=== PATIENT | female | born 1975 | race Caucasian/White ===

== ENCOUNTER 2017-01-03 08:28 | Inpatient (IN) | payer OTHER ==
[2017-01-03] VITALS (11 sets, daily range): BP systolic 101–138; BP diastolic 60–81; PULSE 66–79; RESP 14–25; TEMP 97.6–98.8; O2SAT 97–100
[~2017-01-03] VITALS: Ht 170.2 cm; Wt 64.4 kg
[~2017-01-03 08:28] MED LIST: CALC500 PO; CLON.5 PO; IBUP800T23 PO; KCL20 PO; KLOR20TA6 PO; MAGN400 PO; PROT40TA PO; SUCR1S PO
[2017-01-03] MEDS ORDERED: SODIUM CHLOR 0.9% 1000 ML INJ 1,000 ML IV SCH (08:35)
[2017-01-03] MEDS ORDERED: ONDANSETRON HCL 4 MG/2 ML VIAL IVP ONE (08:45)
[2017-01-03] MEDS ORDERED: PANTOPRAZOLE SODIUM 40 MG VIAL IVP ONE (08:45)
[2017-01-03] MEDS ORDERED: SODIUM CHLORIDE 0.9% FLUSH 5 ML FLUSH IVF PRN (08:45)
--- NOTE | 2017-01-03 08:45 | PD ---
HPI Chief Complaint: GI Complaint Time Seen by Provider: 08:35 Travel History International Travel<30 days: No Contact w/Intl Traveler<30days: No History of Present Illness HPI 41-year-old female presents with nonbloody emesis and burning abdominal pain over the past couple of days. She states she has prior issues with severe low potassium where she's had a bee in the ICU. She states she was last here in March and went to [facility] in August. She states that she has issues with her insurance so she doesn't really have doctor she can follow with. She states that she has no other concurrent complaints. She feels worse when she moves around. She denies other modifying factors. Quality is nonbloody. Severity is multiple episodes. 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) Cardiovascular Problems: Yes High Cholesterol: No Chemotherapy: No Chest Pain: No Congestive Heart Failure: No COPD: No Cerebrovascular Accident: No Diabetes: No Diminished Hearing: No Endocrine: Yes (HX ENDOMETRIOUSIS) Gastrointestinal Disorders: Yes GERD: Yes Genitourinary: Yes Headaches: Yes Hiatal Hernia: No Hypertension: Yes Immune Disorder: No Kidney Stones: Yes Musculoskeletal: No Neurologic: Yes Psychiatric: No Reproductive: Yes Respiratory: No Immunizations Current: Yes Migraines: Yes Pneumonia: Yes Radiation Therapy: No Renal Failure: No Seizures: No Sickle Cell Disease: No Sleep Apnea: No Thyroid Disease: No Ulcer: Yes (Pt states she has severe ulcers from throat to rectum) PNEUMOCCOCAL Vaccine (Year): 3 : 2 Para: 1 Miscarriage: 1 : 0 Ectopic : Yes (AT 17 YEARS OF AGE) Ovarian Cysts: Yes Past Surgical History Abdominal Surgery: Yes (multiple Laps) AICD: No Appendectomy: Yes Arteriovenous Shunt: No Cardiac Surgery: No Ear Surgery: No Endocrine Surgery: Yes Eye Surgery: No Genitourinary Surgery: Yes (Interstitial cystitis) Gynecologic Surgery: Yes Hysterectomy: Yes (PARTIAL OOPHERECTOMY AND PARTIAL SALPINECTOMY) Insulin Pump: No Joint Replacement: No Oral Surgery: Yes (Removal of abscess) Pacemaker: No Thoracic Surgery: No Other Surgery: Yes (endometriosis, ovarian cyst,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,appendectomy, cervix partial re) Social History Alcohol Use: No Tobacco Use: No Substance Use: Yes (Marijuana, last used couple days ago) Allergies-Medications (Allergen,Severity, Reaction): Coded Allergies: Keflex (Verified Allergy, Severe, RASH,SWELLING, 01/03/17) Penicillin (Verified Allergy, Severe, RASH,SWELLING, 01/03/17) Reglan (Verified Allergy, Severe, DYSTONIC REACTION, 01/03/17) Seafood (Verified Allergy, Severe, SWELLING IN THROAT, SOB, 01/03/17) Toradol (Verified Allergy, Severe, RASH, 01/03/17) Compazine (Verified Allergy, Mild, DYSTONIC REACTION, 01/03/17) Phenergan (Verified Allergy, Mild, DYSTONIC REACTION, 01/03/17) Neurontin (Verified Adverse Reaction, Severe, SEIZURES, 01/03/17) *MDRO Multi-Drug Resistant Organism (Verified Adverse Reaction, Unknown, ) 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 Emesis bag noted SKIN: Warm and dry. HEAD: Normocephalic and atraumatic. EYES: No injection or drainage. ENT: No nasal drainage noted. NECK: Supple, trachea midline. CARDIOVASCULAR: Regular rate and rhythm RESPIRATORY: No increased effort. No accessory muscle use. GASTROINTESTINAL: Abdomen soft, mild tenderness diffusely, nondistended. NEUROLOGICAL: Awake and alert. Motor and sensory grossly within normal limits. Normal speech. Data Data Last Documented VS Vital Signs Date Time Temp Pulse Resp B/P Pulse Ox O2 Delivery O2 Flow Rate FiO2 01/03/17 08:41 77 18 101/62 98 Room Air 01/03/17 08:41 98.8 Orders Complete Blood Count With Diff (01/03/17 08:35) Comprehensive Metabolic Panel (01/03/17 08:35) Lipase (01/03/17 08:35) Urinalysis - C+S If Indicated (01/03/17 08:35) Iv Access Insert/Monitor (01/03/17 08:35) Ecg Monitoring (01/03/17 08:35) Oximetry (01/03/17 08:35) Ondansetron Inj (Zofran Inj) (01/03/17 08:45) Pantoprazole Inj (Protonix Inj) (01/03/17 08:45) Sodium Chlor 0.9% 1000 Ml Inj (Ns 1000 M (01/03/17 08:35) Sodium Chloride 0.9% Flush (Ns Flush) (01/03/17 08:45) Ed Urine Pregnancytest Poc (01/03/17 08:35) Type And Screen (01/03/17 08:38) Magnesium (Mg) (01/03/17 08:38) Phosphorus (Po4) (01/03/17 08:38) Electrocardiogram (01/03/17 ) Blood Culture (01/03/17 09:37) Lactic Acid Sepsis Protocol (01/03/17 09:37) Chest, Single Ap (01/03/17 ) Sodium Chlor 0.9% 1000 Ml Inj (Ns 1000 M (01/03/17 09:45) Ct Abd/Pel W/O Iv Contrast (01/03/17 ) Vancomycin Inj (Vancomycin Inj) (01/03/17 09:42) Aztreonam Inj (Azactam Inj) (01/03/17 09:42) Metronidazole 500 Mg Inj (Flagyl 500 Mg (01/03/17 09:42) Consult Nephrology (01/03/17 ) Sodium Chlor 0.9% 1000 Ml Inj (Ns 1000 M (01/03/17 10:15) Potassium Chlor 10 Meq Premix (Kcl 10 Me (01/03/17 10:15) Admit Order (Ed Use Only) (01/03/17 10:32) (Hub Use Only)Inp Phy Cons/Ref (01/03/17 ) Labs Laboratory Tests Test 01/03/17 01/03/17 01/03/17 09:01 09:20 10:10 White Blood Count 22.3 TH/MM3 Red Blood Count 4.13 MIL/MM3 Hemoglobin 11.8 GM/DL Hematocrit 34.3 % Mean Corpuscular Volume 83.0 FL Mean Corpuscular Hemoglobin 28.6 PG Mean Corpuscular Hemoglobin 34.5 % Concent Red Cell Distribution Width 15.1 % Platelet Count 299 TH/MM3 Mean Platelet Volume 8.5 FL Neutrophils (%) (Auto) 82.7 % Lymphocytes (%) (Auto) 4.1 % Monocytes (%) (Auto) 12.7 % Eosinophils (%) (Auto) 0.2 % Basophils (%) (Auto) 0.3 % Neutrophils # (Auto) 18.4 TH/MM3 Lymphocytes # (Auto) 0.9 TH/MM3 Monocytes # (Auto) 2.8 TH/MM3 Eosinophils # (Auto) 0.1 TH/MM3 Basophils # (Auto) 0.1 TH/MM3 CBC Comment AUTO DIFF Differential Total Cells 100 Counted Neutrophils % (Manual) 55 % Band Neutrophils % 27 % Lymphocytes % 8 % Monocytes % 10 % Neutrophils # (Manual) 18.3 TH/MM3 Differential Comment FINAL DIFF MANUAL Platelet Estimate NORMAL Platelet Morphology Comment NORMAL Ovalocytes 1+ Sodium Level 133 MEQ/L Potassium Level 1.9 MEQ/L Chloride Level 94 MEQ/L Carbon Dioxide Level 19.1 MEQ/L Anion Gap 20 MEQ/L Blood Urea Nitrogen 65 MG/DL Creatinine 3.79 MG/DL Estimat Glomerular Filtration 13 ML/MIN Rate Random Glucose 126 MG/DL Calcium Level 10.1 MG/DL Phosphorus Level 8.8 MG/DL Magnesium Level 2.8 MG/DL Total Bilirubin 0.2 MG/DL Aspartate Amino Transf 10 U/L (AST/SGOT) Alanine Aminotransferase 15 U/L (ALT/SGPT) Alkaline Phosphatase 83 U/L Total Protein 7.3 GM/DL Albumin 4.0 GM/DL Lipase 1308 U/L Blood Type A POSITIVE Antibody Screen NEGATIVE Urine Color YELLOW Urine Turbidity CLEAR Urine pH 6.0 Urine Specific [place] 1.014 Urine Protein 30 mg/dL Urine Glucose (UA) NEG mg/dL Urine Ketones NEG mg/dL Urine Occult Blood SMALL Urine Nitrite NEG Urine Bilirubin NEG Urine Urobilinogen LESS THAN 2.0 MG/DL Urine Leukocyte Esterase NEG Urine RBC 1 /hpf Urine WBC 4 /hpf Urine Squamous Epithelial 5 /hpf Cells Urine Bacteria RARE /hpf Urine Hyaline Casts 7 /lpf Microscopic Urinalysis Comment CULT NOT INDICATED Urine Random Creatinine 87 MG/DL Urine Random Total Protein 99 MG/DL Urine Random Sodium 22 MEQ/L Urine Protein/Creatinine Ratio 1.14 Lactic Acid Level 1.1 mmol/L MDM Medical Decision Making Medical Screen Exam Complete: Yes Emergency Medical Condition: Yes Medical Record Reviewed: Yes (past history confirmed) Interpretation(s) CBC & BMP Diagram 01/03/17 09:01 Last 24 hours Impressions Chest X-Ray 01/03/17 0000 Signed Impressions: Service Date/Time: Tuesday, January 03, 2017 09:34 - CONCLUSION: Normal examination. Feliz Leung MD Abdomen/Pelvis CT 01/03/17 0000 Signed Impressions: Service Date/Time: Tuesday, January 03, 2017 09:49 - CONCLUSION: Normal examination. Dense stool throughout distended colon Feliz Leung MD Differential Diagnosis Dehydration with acute renal failure or electrolyte abnormality, abscess, colitis.... Narrative Course Will check blood work, urinalysis, CT scan abdomen pelvis and dose with IV fluids, antiemetics and pain medication and reevaluate Workup shows critical hypokalemia and acute renal failure. There is also concerning findings given elevated white count with bandemia so blood cultures and lactate were added on, dose with broad-spectrum aztreonam, Flagyl, and vancomycin and monitor ED workup without source of infection on CT imaging. She does have poor dentition which could be a source. Started potassium and IV fluid hydration and care will be transferred to ICU team and junior staff accountant Critical Care Narrative Aggregate critical care time was 45 minutes. Time to perform other separately billable procedures was not included in the critical care time. My time did not include minutes spent treating any other patients simultaneously or on activities that did not directly contribute to the patient's treatment. The services I provided to this patient were to treat and/or prevent clinically significant deterioration that could result in: Cardiac arrest I provided critical care services requiring my management, as noted below: Chart data review, documentation time, medication orders and management, vital sign assessments/reviewing monitor data, ordering and reviewing lab tests, ordering and interpreting/reviewing x-rays and diagnostic studies, care of the patient and discussion of the patient with the admitting physicians. Sepsis Criteria SIRS Criteria (2 or more): WBC > 31684, < 4000 or > 10% bands Severe Sepsis (+one): Acute Oliguria/Renal Failure Physician Communication Physician Communication Dr. Valenzuela will follow, states to place on 1/2 ns with 75meq of bicarb and 30meq of kcl for maintence after start of replace, will see dr severino agrees to admit Diagnosis Primary Impression: Acute renal failure Qualified Code: N17.9 - Acute renal failure, unspecified acute renal failure type Additional Impressions: Hypokalemia Abdominal pain Qualified Code: R10.84 - Generalized abdominal pain Nausea vomiting and diarrhea Admitting Information Admitting Physician Requests: Admit Rae Smith MD Jan 03, 2017 08:45
[2017-01-03 09:15] LABS: AUTOMATED NEUTROPHIL # 18.4 TH/MM3 (1.8-7.7); BASOPHIL # 0.1 TH/MM3 (0-0.2); BASOPHIL % 0.3 % (0.0-2.0); EOSINOPHIL # 0.1 TH/MM3 (0-0.4); EOSINOPHIL % 0.2 % (0.0-4.0); HEMATOCRIT 34.3 % (35.0-46.0); LYMPH % 4.1 % (9.0-44.0); LYMPHOCYTE # 0.9 TH/MM3 (1.0-4.8); MEAN CORPUSCULAR HEMOGLOBIN 28.6 PG (27.0-34.0); MEAN CORPUSCULAR HGB CONC 34.5 % (32.0-36.0); MONO % 12.7 % (0.0-8.0); NEUT % 82.7 % (16.0-70.0); PLATELET COUNT 299 TH/MM3 (150-450); RED BLOOD COUNT 4.13 MIL/MM3 (4.00-5.30); RED CELL DISTRIBUTION WIDTH 15.1 % (11.6-17.2); WHITE BLOOD COUNT 22.3 TH/MM3 (4.0-11.0)
[2017-01-03 09:20] LABS: HEMO FLAGS AUTO DIFF
[2017-01-03 09:29] LABS: MAGNESIUM 2.8 MG/DL (1.5-2.5)
[2017-01-03 09:35] LABS: ALKALINE PHOSPHATASE 83 U/L (45-117); ALT (GPT) 15 U/L (10-53); ANION GAP 20 MEQ/L (5-15); AST (GOT) 10 U/L (15-37); BICARBONATE 19.1 MEQ/L (21.0-32.0); BLOOD UREA NITROGEN 65 MG/DL (7-18); CHLORIDE 94 MEQ/L (98-107); GLOMERULAR FILTRATION RATE 13 ML/MIN (>89); SODIUM (NA) 133 MEQ/L (136-145); TOTAL BILIRUBIN ADULT 0.2 MG/DL (0.2-1.0)
[2017-01-03 09:37] LABS: POTASSIUM 1.9 MEQ/L (3.5-5.1)
[2017-01-03] MEDS ORDERED: VANCOMYCIN INJ 1,000 MG in SODIUM CHLOR 0.9% 250 ML INJ 250 ML IV STA (09:42)
[2017-01-03] MEDS ORDERED: metroNIDAZOLE 500 MG INJ 100 ML IV STA (09:42)
[2017-01-03] MEDS ORDERED: AZTREONAM INJ 2,000 MG in SODIUM CHLORIDE 0.9% INJ 100 ML IV STA (09:42)
[2017-01-03] MEDS ORDERED: SODIUM CHLOR 0.9% 1000 ML INJ 1,000 ML IV ONE ×2 (09:45→10:15)
[2017-01-03 09:47] LABS: BACTERIA, URINE RARE /hpf; BLOOD, URINE SMALL (NEG); COMMENT (UR) CULT NOT INDICATED; CULTURE IF INDICATED CULT NOT INDICATED; GLUCOSE,URINE NEG (NEG); HYALINE CAST, URINE 7 /lpf (RARE); KETONE, URINE NEG (NEG); NITRITE,URINE NEG (NEG); SQUAMOUS EPITHELIAL CELL URINE 5 /hpf (0-5); URINE COLOR YELLOW (YELLW/STRAW)
[2017-01-03 09:48] LABS: BANDS 27 % (0-6); NEUTROPHIL # MANUAL DIFF 18.3 TH/MM3 (1.8-7.7); POLYS (SEG NEUTROPHILS) 55 % (16-70); WBC DIFF SAMPLE 100
[2017-01-03 09:49] LABS: OVALOCYTES 1+ (NORMAL); PLATELET ESTIMATE SMEAR NORMAL (NORMAL); PLATELET MORPHOLOGY NORMAL (NORMAL); SCAN/DIFF FINAL DIFF MANUAL
--- NOTE | 2017-01-03 09:57 | RADRPT ---
EXAM DATE/TIME: 01/03/2017 09:34 [facility] COMPARISON: CHEST SINGLE AP, April 25, 2016, 9:01. INDICATIONS : Chest and abdomen pain. MEDICAL HISTORY : Cancer of the appendix. SURGICAL HISTORY : Appendectomy. ENCOUNTER: Initial ACUITY: 2 days PAIN SCORE: 6/10 LOCATION: middle chest, abdomen FINDINGS: A single view of the chest demonstrates the lungs to be symmetrically aerated without evidence of mas s, infiltrate or effusion. The cardiomediastinal contours are unremarkable. Osseous structures are intact. CONCLUSION: Normal examination. Feliz Leung MD on January 03, 2017 at 9:56 Board Certified Radiologist. This report was verified electronically.
[2017-01-03] MEDS ORDERED: POTASSIUM CHLOR 10 MEQ PREMIX 100 ML IV ONE (10:15)
--- NOTE | 2017-01-03 10:16 | RADRPT ---
EXAM DATE/TIME: 01/03/2017 09:49 [facility] COMPARISON: CT ABDOMEN & PELVIS W/O CONTRAST, April 19, 2016, 1:53. INDICATIONS : Abdominal pain along with nausea, vomiting and diarrhea. ORAL CONTRAST: No oral contrast ingested. RADIATION DOSE: 9.96 CTDIvol (mGy) MEDICAL HISTORY : Cancer of the appendix and colitis. SURGICAL HISTORY : Appendectomy. partial hysterectomy ENCOUNTER: Initial ACUITY: 2 days PAIN SCALE: 3/10 LOCATION: abdomen TECHNIQUE: Volumetric scanning of the abdomen and pelvis was performed. Using automated exposure control and ad justment of the mA and/or kV according to patient size, radiation dose was kept as low as reasonably achievable to obtain optimal diagnostic quality images. FINDINGS: LOWER LUNGS: The visualized lower lungs are clear. LIVER: Homogeneous density without lesion. There is no dilation of the biliary tree. No calcified gallston es. SPLEEN: Normal size without lesion. PANCREAS: Within normal limits. KIDNEYS: Normal in size and shape. There is no mass, stone, or hydronephrosis. ADRENAL GLANDS: Within normal limits. VASCULAR: There is no aortic aneurysm. BOWEL/MESENTERY: The stomach, small bowel, and colon demonstrate no acute abnormality. There is no free intraperitone al air or fluid. ABDOMINAL WALL: Within normal limits. RETROPERITONEUM: There is no lymphadenopathy. BLADDER: No wall thickening or mass. REPRODUCTIVE: Within normal limits. INGUINAL: There is no lymphadenopathy or hernia. MUSCULOSKELETAL: Within normal limits for patient age. CONCLUSION: Normal examination. Dense stool throughout distended colon Feliz Leung MD on January 03, 2017 at 10:13 Board Certified Radiologist. This report was verified electronically.
[2017-01-03] MEDS ORDERED: POTASSIUM CHLORIDE 25 MEQ EFFERVESCENT TAB PO ONE (11:15)
[2017-01-03] MEDS ORDERED: DEXTROSE 50% IN WATER 50 ML VIAL(D50) IV PUSH PRN (12:00)
[2017-01-03] MEDS ORDERED: POTASSIUM CHLOR 10 MEQ PREMIX 100 ML IV SCH (12:00)
[2017-01-03] MEDS ORDERED: RESP: ALBUTEROL 2.5 MG/IPRATROPIUM 0.5 MG NEB (PRN) INH (12:00)
[2017-01-03] MEDS ORDERED: CHLORHEXIDINE GLUCONATE 2 % 1 PACK (2 CLOTHS) TOP PRN (12:00)
[2017-01-03] MEDS ORDERED: MISCELLANEOUS NURSING INFORMATION XX SCH (12:00)
[2017-01-03] MEDS ORDERED: POTASSIUM CL 40 MEQ/30 ML LIQ UDC PO ONE (12:00)
[2017-01-03] MEDS: INSULIN NovoLIN REGULAR SUPPLEMENTAL SCALE SQ SCH ×2 (12:00→17:30)
[2017-01-03] MEDS ORDERED: IBUP-988 PO (12:06)
[2017-01-03] MEDS ORDERED: CHOL1CAP24 PO (12:06)
[2017-01-03] MEDS ORDERED: POTA99TA PO (12:12)
[2017-01-03] MEDS ORDERED: MAGN100T2 PO (12:13)
[2017-01-03] MEDS ORDERED: BENA25TA3 PO (12:13)
--- NOTE | 2017-01-03 12:27 | PD.CONS ---
HPI Service Nephrology Consult Requested By Reason for Consult Acute Renal failure, hypokalemia Primary Care Physician No Primary Care Physician History of Present Illness this is a 41 y/o female who was admitted with nausea/vomiting. She has a significant history of GI disorders including GERD (multiple ulcers within colon as well) and has frequent vomiting. This has been ongoing for years. She has normal renal function at baseline although she has had episodes of Shabana in the past. Creatinine 3.79 on arrival, BUN 65, C02 19, K 1.9. We were consulted for management. She has received 10 mEq KCL since arrival. She is awake, appears frail and pale, and is a full code. (Lissette Padilla) Review of Systems Cardiovascular: DENIES: Lower Extremity Edema Gastrointestinal: COMPLAINS OF: Nausea, Vomiting, DENIES: Abdominal pain ( Lissette Padilla) Past Family Social History Allergies: Coded Allergies: Keflex (Verified Allergy, Severe, RASH,SWELLING, 01/03/17) Penicillin (Verified Allergy, Severe, RASH,SWELLING, 01/03/17) Reglan (Verified Allergy, Severe, DYSTONIC REACTION, 01/03/17) Seafood (Verified Allergy, Severe, SWELLING IN THROAT, SOB, 01/03/17) Toradol (Verified Allergy, Severe, RASH, 01/03/17) Compazine (Verified Allergy, Mild, DYSTONIC REACTION, 01/03/17) Phenergan (Verified Allergy, Mild, DYSTONIC REACTION, 01/03/17) Neurontin (Verified Adverse Reaction, Severe, SEIZURES, 01/03/17) *MDRO Multi-Drug Resistant Organism (Verified Adverse Reaction, Unknown, ) MRSA axilla/ breast 2008 MRSA PCR (nares) negative - 04/19/16 & 04/21/16 Cleared per Infection Control Past Medical History anxiety/depression paroxysmal A fib cancer of appendix, 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 hx of renal stones GERD, multiple ulcers Past Surgical History Appy laparoscopies, multiple cystoscopies oophorectomy Reported Medications Ibuprofen 800 Mg Tab 800 Mg PO Q6H PRN Kcl 20 Meq Tab (Potassium Chloride) 20 Meq Tabcr 40 Meq PO DAILY 30 Days Klonopin (Clonazepam) 0.5 Mg Tab 0.5 Mg PO Q12H PRN Mag-Ox 400 Mg Tab (Magnesium Oxide) 400 Mg Tab 400 Mg PO Q12HR Protonix (Pantoprazole Sodium) 40 Mg Tabdr 40 Mg PO BID 31 Days Carafate 1 Gm/10 Ml Udc (Sucralfate) 1 Gm/10 Ml Susp 1 Gm PO ACHS 10 Days Klonopin (Clonazepam) 0.5 Mg Tab 0.5 Mg PO Q12H PRN Oscal 500 (Calcium Carbonate) 500 Mg Tab 500 Mg PO Q12HR 31 Days K-Dur (Potassium Chloride) 20 Meq Tabcr 40 Meq PO DAILY 30 Days Active Ordered Medications Current Medications Medications (Trade) Dose Ordered Sig/[place] Route Start Time Stop Time Status Last Admin (NS Flush) 2 ml UNSCH PRN IVF 01/03/17 08:45 (D50w (Vial) Inj) 25 ml UNSCH PRN IV PUSH 01/03/17 12:00 UNV (NovoLIN R SUPPLEMENTAL SCALE) 1 Q6HR SQ 01/03/17 12:00 UNV Potassium Chloride 40 meq 40 meq ONCE ONCE PO 01/03/17 12:00 01/03/17 12:01 UNV (KCl 10 Meq Premix Inj) 100 ml @ 100 mls/hr Q1H IV 01/03/17 12:00 01/03/17 17:59 UNV (NS Flush) 2 ml UNSCH PRN IV FLUSH 01/03/17 12:00 (NS Flush) 2 ml BID IV FLUSH 01/03/17 21:00 UNV (Dilaudid Pf Inj) 0.25 mg Q3H PRN IV 01/03/17 12:00 UNV (Protonix Inj) 40 mg DAILY IV 01/04/17 09:00 UNV (Zofran Inj) 4 mg Q6H PRN IV 01/03/17 12:00 UNV (Heparin Inj) 5,000 units Q8H SQ 01/03/17 12:00 UNV Miscellaneous Information 1 Q361D XX 01/03/17 12:00 UNV (Chlorhexidine 2% Cloth) 3 pack Taper DAILY@04 TOP 01/04/17 04:00 12/31/17 03:59 UNV Chlorhexidine Gluconate 3 pack 3 pack UNSCH PRN TOP 01/03/17 12:00 UNV Metronidazole 100 ml @ 100 mls/hr Q6H IV 01/03/17 18:00 UNV (Azactam Inj/NS Inj) 100 ml @ 200 mls/hr Q12H IV 01/03/17 21:00 UNV Family History her family is adopted some of her family have lupus Social History no smoking or ETOH occasional marijuana full code functionally independent (Lissette Padilla) Physical Exam Vital Signs Vital Signs Date Time Temp Pulse Resp B/P Pulse Ox O2 Delivery O2 Flow Rate FiO2 01/03/17 08:41 77 18 101/62 98 Room Air 01/03/17 08:41 98.8 77 18 101/62 100 Room Air 01/03/17 08:41 20 01/03/17 08:35 98.8 77 20 101/62 99 Physical Exam disheveled female, awake, alert/oriented poor dentition S1/S2, regular rate/rhythm lungs clear dry mucrous membranes abdomen soft, flat trace edema in lower extremities, distal pulses intact Laboratory Laboratory Tests Test 01/03/17 01/03/17 01/03/17 09:01 09:20 10:10 White Blood Count 22.3 Red Blood Count 4.13 Hemoglobin 11.8 Hematocrit 34.3 Mean Corpuscular Volume 83.0 Mean Corpuscular Hemoglobin 28.6 Mean Corpuscular Hemoglobin 34.5 Concent Red Cell Distribution Width 15.1 Platelet Count 299 Mean Platelet Volume 8.5 Neutrophils (%) (Auto) 82.7 Lymphocytes (%) (Auto) 4.1 Monocytes (%) (Auto) 12.7 Eosinophils (%) (Auto) 0.2 Basophils (%) (Auto) 0.3 Neutrophils # (Auto) 18.4 Lymphocytes # (Auto) 0.9 Monocytes # (Auto) 2.8 Eosinophils # (Auto) 0.1 Basophils # (Auto) 0.1 CBC Comment AUTO DIFF Differential Total Cells 100 Counted Neutrophils % (Manual) 55 Band Neutrophils % 27 Lymphocytes % 8 Monocytes % 10 Neutrophils # (Manual) 18.3 Differential Comment FINAL DIFF MANUAL Platelet Estimate NORMAL Platelet Morphology Comment NORMAL Ovalocytes 1+ Sodium Level 133 Potassium Level 1.9 Chloride Level 94 Carbon Dioxide Level 19.1 Anion Gap 20 Blood Urea Nitrogen 65 Creatinine 3.79 Estimat Glomerular Filtration 13 Rate Random Glucose 126 Calcium Level 10.1 Phosphorus Level 8.8 Magnesium Level 2.8 Total Bilirubin 0.2 Aspartate Amino Transf 10 (AST/SGOT) Alanine Aminotransferase 15 (ALT/SGPT) Alkaline Phosphatase 83 Total Protein 7.3 Albumin 4.0 Lipase 1308 Blood Type A POSITIVE Antibody Screen NEGATIVE Urine Color YELLOW Urine Turbidity CLEAR Urine pH 6.0 Urine Specific [place] 1.014 Urine Protein 30 Urine Glucose (UA) NEG Urine Ketones NEG Urine Occult Blood SMALL Urine Nitrite NEG Urine Bilirubin NEG Urine Urobilinogen LESS THAN 2.0 Urine Leukocyte Esterase NEG Urine RBC 1 Urine WBC 4 Urine Squamous Epithelial 5 Cells Urine Bacteria RARE Urine Hyaline Casts 7 Microscopic Urinalysis Comment CULT NOT INDICATED Lactic Acid Level 1.1 Date/Time Procedure Status Source Growth 01/03/17 10:20 Aerobic Blood Culture Received Blood Peripheral Pending 01/03/17 10:20 Anaerobic Blood Culture Received Blood Peripheral Pending (Lissette Padilla) Result Diagram: 01/03/1790001/03/17900 Assessment and Plan Problem List: (1) SHABANA (acute kidney injury) Plan: in a pt with normal renal function SHABANA thought to be prerenal in nature due to decreased intravascular volume depletion from dehydration obtain urine electrolytes, FeNa correct potassium IVF: 1/2 NS with 75 mEq bicarb at 150 cc/hr obtain renal US monitor urine output begin Renvela with meals daily renal panel avoid nephrotoxins (2) Hypokalemia Plan: replacement ordered follow up on labs careful correction given renal failure (Lissette Padilla) Problem List: (1) Hypokalemia (2) SHABANA (acute kidney injury) (3) Metabolic acidosis Plan: due to diarrhea? patient reports vomiting. (4) Dehydration Plan: due to GI losses. Hydrate. Assessment and Plan Patient was seen and examined. SHABANA could be due to pre-renal factors, but may have progressed to ATN. Continue bicarbonate drip. Replace potassium. Avoid nephrotoxic agents. She was on Ibuprofen which also likely contributed to development of renal failure. (Quirino Valenzuela MD) Lissette Padilla Jan 03, 2017 12:27 Quirino Valenzuela MD Jan 03, 2017 16:36
[2017-01-03] MEDS: HEPARIN SODIUM - SQ 10,000 UNITS/ML VIAL SQ SCH ×2 (12:29→20:00)
[2017-01-03] MEDS: HYDROmorphone HCL PF 1 MG/ML VIAL IV PRN ×3 (12:31→22:37)
--- NOTE | 2017-01-03 13:06 | RADRPT ---
EXAM DATE/TIME: 01/03/2017 12:35 [facility] COMPARISON: No previous studies available for comparison. INDICATIONS : Increased BUN and Creatinine. MEDICAL HISTORY : Gastroesophageal reflux disease. Renal calculi. Syncope. Dizziness. Left arm numbness. A Fib. Ulcer s. Inflammatory bowel disorder. Pneumonia. Ectopic. UTI. Appendix CA. Uterus CA. Endometriosis. SURGICAL HISTORY : Angioplasty. Hysterectomy. Removal of oral abscess. Multiple lap. Oopherectomy. Partial salpinectom y. Endometriosis surgery. Ovarian cyst surgery. Cervix surgery. ENCOUNTER: Initial ACUITY: 1 day PAIN SCORE: 7/10 LOCATION: Bilateral flank MEASUREMENTS: RIGHT KIDNEY: 9.9 x 6.1 x 6.0 cm LEFT KIDNEY: 10.8 x 5.0 x 4.9 cm FINDINGS: RIGHT KIDNEY: Renal cortex is normal in thickness and isoechoic to liver. No hydronephrosis, stone, or mass. LEFT KIDNEY: Renal cortex is normal in thickness and isoechoic to liver. No hydronephrosis, stone, or mass. BLADDER: Within normal limits given the degree of distension. CONCLUSION: Normal examination except for slight increased echogenicity to both renal cortices suggesting mild ch ronic medical renal disease. Feliz Leung MD on January 03, 2017 at 13:04 Board Certified Radiologist. This report was verified electronically.
[2017-01-03] MEDS: SODIUM BICARBONATE 8.4% INJ 75 MEQ in SODIUM CHLOR 0.45% 1000 ML INJ 1,000 ML IV SCH ×2 (14:31→20:10)
[2017-01-03] MEDS: POTASSIUM CHLOR 20 MEQ PREMIX 100 ML IV SCH ×3 (14:33→17:31)
--- NOTE | 2017-01-03 15:56 | HHI.HP ---
HPI Service Critical Care Medicine Primary Care Physician No Primary Care Physician Admission Diagnosis renal failure, hypokalemia Diagnosis: Chief Complaint: nausea Travel History International Travel<30 Days: No Contact w/Intl Traveler <30 Da: No Traveled to Known Affected Are: No History of Present Illness 41yF with a fairly recent history of multiple ICU admissions for severe hypokalemia. Her symptoms she states started back in July or August of last year where she noticed hair loss, weight loss, fatigue, nausea, vomiting, diarrhea. She has now had over 100 pounds of weight loss since last August. She showed me pictures of large clumps of hair that she is lost over this time period. She states that she now carries diagnoses of gastroparesis, ulcerative colitis, lupus, bipolar disorder. She states that she thinks all these diagnoses are wrong, but she has not found anyone that is been able to find an accurate diagnosis. She also states that her teeth have been following out over the same time period. She states she has numbness and tingling, more so in her hands and feet. She states she has intermittent chills, but no fever. She also endorses that more recently over the last few weeks she has started to lactate. She is not , and his pump and section active for more than a year. She denies breast pain. She denies any blood in her stool or hematemesis. She does endorse significant fatigue. She denies chest pain or difficulty breathing. On today's exam, she endorses a very vague crampy pain all over from her chest down to her abdomen, pelvis, back area. She does not know if anything aggravates or relieves the pain. Is very difficult to get a good history because the patient goes off on tangents frequently is hard to tie down to a clear answer to my questions. In emergency department, she was found to have a white count of 22,000 with a left shift, a serum potassium of 1.9, serum sodium 133. Critical care medicine has been consulted to evaluate and manage her severe life -threatening hypokalemia. Review of Systems Constitutional: COMPLAINS OF: Fatigue, Weight loss, Chills, DENIES: Diaphoretic episodes, Fever, Weight gain, Dizziness, Change in appetite, Night Sweats Endocrine: COMPLAINS OF: Heat/cold intolerance, DENIES: Abnorml menstrual pattern, Polydipsia, Polyuria, Polyphagia Eyes: DENIES: Blurred vision, Diplopia, Eye pain, Vision loss, Photosensitivity , Double Vision Ears, nose, mouth, throat: COMPLAINS OF: Toothache, DENIES: Hearing loss Respiratory: DENIES: Cough, Hemoptysis, Sputum production, Shortness of breath Cardiovascular: COMPLAINS OF: Lower Extremity Edema, DENIES: Chest pain, Palpitations, Syncope, Dyspnea on Exertion Gastrointestinal: COMPLAINS OF: Abdominal pain, Diarrhea, Nausea, Vomiting, DENIES: Black stools, Bloody stools, Constipation Musculoskeletal: COMPLAINS OF: Back pain Integumentary: COMPLAINS OF: Nipple discharge Neurologic: COMPLAINS OF: Headache Psychiatric: COMPLAINS OF: Anxiety Past Family Social History Allergies: Coded Allergies: Keflex (Verified Allergy, Severe, RASH,SWELLING, 01/03/17) Penicillin (Verified Allergy, Severe, RASH,SWELLING, 01/03/17) Reglan (Verified Allergy, Severe, DYSTONIC REACTION, 01/03/17) Seafood (Verified Allergy, Severe, SWELLING IN THROAT, SOB, 01/03/17) Toradol (Verified Allergy, Severe, RASH, 01/03/17) Compazine (Verified Allergy, Mild, DYSTONIC REACTION, 01/03/17) Phenergan (Verified Allergy, Mild, DYSTONIC REACTION, 01/03/17) Neurontin (Verified Adverse Reaction, Severe, SEIZURES, 01/03/17) *MDRO Multi-Drug Resistant Organism (Verified Adverse Reaction, Unknown, ) MRSA axilla/ breast 2009 MRSA PCR (nares) negative - 04/19/16 & 04/21/16 Cleared per Infection Control Past Medical History Bipolar disorder Anxiety Atrial fibrillation Appendiceal cancer Endometriosis GERD Headache Kidney stones Hypertension Migraines Ulcerative colitis Question possible history of lupus Ectopic at age 17 Past Surgical History Multiple prior laparotomies Appendectomy Interstitial cystitis Partial salpingo-oophorectomy Drainage of oral abscess Reported Medications Benadryl Allergy (Diphenhydramine HCl) 25 Mg Tab 25 Mg PO DAILY PRN Magnesium Citrate 100 Mg Tab 100 Mg PO HS Potassium 99 Mg Tab 99 Mg PO HS Vitamin D3 (Cholecalciferol) 10,000 Unit Cap 20,000 Units PO Q3D Advil (Ibuprofen) 200 Mg Tab 200 Mg PO QID PRN Active Ordered Medications See MAR Family History reviewed and found to be noncontributory to her acute illness Social History denies tob, etoh. endorses marijuana use, last a few days ago. Physical Exam Vital Signs Vital Signs Date Time Temp Pulse Resp B/P Pulse Ox O2 Delivery O2 Flow Rate FiO2 01/03/17 13:10 89 20 130/80 96 01/03/17 12:16 79 20 138/81 99 Room Air 01/03/17 08:41 77 18 101/62 98 Room Air 01/03/17 08:41 98.8 77 18 101/62 100 Room Air 01/03/17 08:41 20 01/03/17 08:35 98.8 77 20 101/62 99 Physical Exam GENERAL: Appearing middle-aged female, sitting up in bed HEENT: Normocephalic. Atraumatic. Pupils equal, round, reactive, conjugate. Mucous membranes are dry. NECK: Neck is midline. There is no JVD. CHEST: Equal chest rise. Clear to auscultation bilaterally. CARDIOVASCULAR: Heart rate, regular rhythm. S1 and S2 without appreciable murmurs. ABDOMEN: Soft, diffusely tender to palpitation, no guarding or rebound. MUSCULOSKELETAL: Distal pulses 2+ no peripheral edema. NEUROLOGICAL: RASS 0. Subjectively she has decreased sensation to fine touch in a stocking distribution over her dorsum hands and feet. Otherwise grossly neuro intact. Laboratory Laboratory Tests Test 01/03/17 01/03/17 01/03/17 09:01 09:20 10:10 White Blood Count 22.3 Red Blood Count 4.13 Hemoglobin 11.8 Hematocrit 34.3 Mean Corpuscular Volume 83.0 Mean Corpuscular Hemoglobin 28.6 Mean Corpuscular Hemoglobin 34.5 Concent Red Cell Distribution Width 15.1 Platelet Count 299 Mean Platelet Volume 8.5 Neutrophils (%) (Auto) 82.7 Lymphocytes (%) (Auto) 4.1 Monocytes (%) (Auto) 12.7 Eosinophils (%) (Auto) 0.2 Basophils (%) (Auto) 0.3 Neutrophils # (Auto) 18.4 Lymphocytes # (Auto) 0.9 Monocytes # (Auto) 2.8 Eosinophils # (Auto) 0.1 Basophils # (Auto) 0.1 CBC Comment AUTO DIFF Differential Total Cells 100 Counted Neutrophils % (Manual) 55 Band Neutrophils % 27 Lymphocytes % 8 Monocytes % 10 Neutrophils # (Manual) 18.3 Differential Comment FINAL DIFF MANUAL Platelet Estimate NORMAL Platelet Morphology Comment NORMAL Ovalocytes 1+ Sodium Level 133 Potassium Level 1.9 Chloride Level 94 Carbon Dioxide Level 19.1 Anion Gap 20 Blood Urea Nitrogen 65 Creatinine 3.79 Estimat Glomerular Filtration 13 Rate Random Glucose 126 Calcium Level 10.1 Phosphorus Level 8.8 Magnesium Level 2.8 Total Bilirubin 0.2 Aspartate Amino Transf 10 (AST/SGOT) Alanine Aminotransferase 15 (ALT/SGPT) Alkaline Phosphatase 83 Total Protein 7.3 Albumin 4.0 Lipase 1308 Blood Type A POSITIVE Antibody Screen NEGATIVE Urine Color YELLOW Urine Turbidity CLEAR Urine pH 6.0 Urine Specific Connelly 1.014 Urine Protein 30 Urine Glucose (UA) NEG Urine Ketones NEG Urine Occult Blood SMALL Urine Nitrite NEG Urine Bilirubin NEG Urine Urobilinogen LESS THAN 2.0 Urine Leukocyte Esterase NEG Urine RBC 1 Urine WBC 4 Urine Squamous Epithelial 5 Cells Urine Bacteria RARE Urine Hyaline Casts 7 Microscopic Urinalysis Comment CULT NOT INDICATED Urine Random Creatinine 87 Urine Random Total Protein 99 Urine Random Sodium 22 Urine Protein/Creatinine Ratio 1.14 Lactic Acid Level 1.1 Date/Time Procedure Status Source Growth 01/03/17 10:20 Aerobic Blood Culture Received Blood Peripheral Pending 01/03/17 10:20 Anaerobic Blood Culture Received Blood Peripheral Pending Result Diagram: 01/03/17 0901/03/17 09 Assessment and Plan Assessment and Plan Assessment: 41yF with multiple complaints of fatigue, nausea, vomiting, and weakness, now found to have acute kidney injury and severe life-threatening hypokalemia. Plan: 1. Severe life-threatening Hypokalemia -- aggressively replace K -- recheck tonight and serial K -- unclear etiology. apparently this is chronic and not acute per the patient 2. Acute Kidney Injury -- Nephrology following -- ivf resuscitation. -- daily bmp, mg, phos -- no indication for acute renal replacement therapy at this time 3. Anemia -- check b12, folate 4. fatigue -- check TSH, free t4 -- check random cortisol 5. nausea/vomiting -- zofran prn -- npo for now. 6. dehydration -- ivf resuscitation 7. Leukocytosis -- unclear etiology. possibly dental carries -- continue aztreonam and flagyl. -- daily cbc -- f/u huang cultures, urine, sputum, blood. SCDs, SQH for dvt prophylaxis protonix for GI prophylaxis Dispo: admit to the ICU given severe electrolyte derrangements. Code Status Full Code Yohan Domingo MD Jan 03, 2017 15:56
[2017-01-03] MEDS: metroNIDAZOLE 500 MG INJ 100 ML IV SCH ×2 (17:30→22:37)
[2017-01-03 17:51] LABS: ANION GAP 18 MEQ/L (5-15); BICARBONATE 20.4 MEQ/L (21.0-32.0); BLOOD UREA NITROGEN 58 MG/DL (7-18); CHLORIDE 104 MEQ/L (98-107); GLOMERULAR FILTRATION RATE 19 ML/MIN (>89); SODIUM (NA) 142 MEQ/L (136-145)
[2017-01-03 17:58] LABS: POTASSIUM 1.9 MEQ/L (3.5-5.1)
[2017-01-03] MEDS ORDERED: POTASSIUM CHLOR 40 MEQ PREMIX 100 ML IV SCH (18:45)
[2017-01-03] MEDS: AZTREONAM INJ 500 MG in SODIUM CHLORIDE 0.9% INJ 100 ML IV SCH (20:37)
[2017-01-03] MEDS: POTASSIUM CL 40 MEQ/30 ML LIQ UDC NG SCH ×2 (20:37→22:37)
[2017-01-03] MEDS: SODIUM CHLORIDE 0.9% FLUSH 5 ML FLUSH IV FLUSH SCH (20:38)
[2017-01-04] VITALS (13 sets, daily range): BP systolic 85–118; BP diastolic 53–60; PULSE 66–93; RESP 16–24; TEMP 97.9–98.7; O2SAT 97–100
[2017-01-04] MEDS: HYDROmorphone HCL PF 1 MG/ML VIAL IV PRN ×2 (01:36→05:20)
[2017-01-04] MEDS: HEPARIN SODIUM - SQ 10,000 UNITS/ML VIAL SQ SCH ×3 (04:00→21:10)
[2017-01-04] MEDS: POTASSIUM CL 40 MEQ/30 ML LIQ UDC NG SCH ×2 (05:19→05:22)
[2017-01-04] MEDS: metroNIDAZOLE 500 MG INJ 100 ML IV SCH ×3 (05:21→17:41)
[2017-01-04 05:53] LABS: HEMATOCRIT 25.7 % (35.0-46.0); MEAN CELL VOLUME 83.9 FL (80.0-100.0); MEAN CORPUSCULAR HEMOGLOBIN 28.8 PG (27.0-34.0); MEAN CORPUSCULAR HGB CONC 34.3 % (32.0-36.0); PLATELET COUNT 188 TH/MM3 (150-450); RED BLOOD COUNT 3.06 MIL/MM3 (4.00-5.30); RED CELL DISTRIBUTION WIDTH 14.9 % (11.6-17.2); REVIEW FLAG FINAL; WHITE BLOOD COUNT 9.7 TH/MM3 (4.0-11.0)
[2017-01-04] MEDS: INSULIN NovoLIN REGULAR SUPPLEMENTAL SCALE SQ SCH ×6 (06:00→22:22)
[2017-01-04 06:19] LABS: BICARBONATE 19.3 MEQ/L (21.0-32.0)
[2017-01-04 06:23] LABS: POTASSIUM 1.5 MEQ/L (3.5-5.1)
[2017-01-04 06:36] LABS: CALCIUM-PROTEIN CORRECTED 7.6 MG/DL (8.5-10.1)
[2017-01-04] MEDS ORDERED: POTASSIUM CHLORIDE IV SCH (09:45)
[2017-01-04] MEDS ORDERED: POTASSIUM CHLOR 20 MEQ PREMIX 100 ML IV PRN (09:45)
[2017-01-04] MEDS ORDERED: [UNRECOGNIZED DRUG - OTHER] IV SCH (09:45)
[2017-01-04] MEDS ORDERED: MAGNESIUM OXIDE 400 MG TAB PO PRN (09:45)
[2017-01-04] MEDS ORDERED: SODIUM PHOSPHATE INJ 30 MMOL in SODIUM CHLOR 0.9% 250 ML INJ 240 ML IV PRN (09:45)
[2017-01-04] MEDS ORDERED: POTASSIUM CL 40 MEQ/30 ML LIQ UDC PO/TUBE PRN (09:45)
[2017-01-04] MEDS ORDERED: MAGNESIUM SULFATE INJ 2 GM in SODIUM CHLORIDE 0.9% INJ 96 ML IV PRN (09:45)
[2017-01-04] MEDS ORDERED: POTASSIUM CHLOR 40 MEQ PREMIX 100 ML IV PRN (09:45)
[2017-01-04] MEDS ORDERED: MAGNESIUM SULFATE INJ 4 GM in SODIUM CHLORIDE 0.9% INJ 92 ML IV PRN (09:45)
[2017-01-04] MEDS ORDERED: POTASSIUM PHOSPHATE MONOBASIC 500 MG TAB PO/TUBE PRN (09:45)
[2017-01-04] MEDS ORDERED: SODIUM BICARBONATE IV SCH (09:45)
[2017-01-04] MEDS ORDERED: INFLUENZA VIRUS VACCINE (QUADRIVALENT) 0.5 ML SYR IM ONE (10:00)
[2017-01-04] MEDS: AZTREONAM INJ 500 MG in SODIUM CHLORIDE 0.9% INJ 100 ML IV SCH ×2 (10:29→21:10)
[2017-01-04] MEDS: SODIUM CHLORIDE 0.9% FLUSH 5 ML FLUSH IV FLUSH SCH ×2 (10:30→21:10)
[2017-01-04] MEDS: PANTOPRAZOLE SODIUM 40 MG VIAL IV SCH (10:30)
[2017-01-04] MEDS ORDERED: DEXTROSE 50% IN WATER 50 ML VIAL(D50) IV PUSH PRN (10:45)
[2017-01-04] MEDS ORDERED: GLUCAGON 1 MG/ML VIAL OTHER PRN (10:45)
--- NOTE | 2017-01-04 10:52 | HHI.CCPN ---
Subjective Remarks/Hospital Course 41yF with a fairly recent history of multiple ICU admissions for severe hypokalemia. Her symptoms she states started back in July or August of last year where she noticed hair loss, weight loss, fatigue, nausea, vomiting, diarrhea. She has now had over 100 pounds of weight loss since last August. She showed me pictures of large clumps of hair that she is lost over this time period. She states that she now carries diagnoses of gastroparesis, ulcerative colitis, lupus, bipolar disorder. She states that she thinks all these diagnoses are wrong, but she has not found anyone that is been able to find an accurate diagnosis. She also states that her teeth have been following out over the same time period. She states she has numbness and tingling, more so in her hands and feet. She states she has intermittent chills, but no fever. She also endorses that more recently over the last few weeks she has started to lactate. She is not , and his pump and section active for more than a year. She denies breast pain. She denies any blood in her stool or hematemesis. She does endorse significant fatigue. She denies chest pain or difficulty breathing. On today's exam, she endorses a very vague crampy pain all over from her chest down to her abdomen, pelvis, back area. She does not know if anything aggravates or relieves the pain. Is very difficult to get a good history because the patient goes off on tangents frequently is hard to tie down to a clear answer to my questions. In emergency department, she was found to have a white count of 22,000 with a left shift, a serum potassium of 1.9, serum sodium 133. Critical care medicine has been consulted to evaluate and manage her severe life -threatening hypokalemia. 01/04 Patient is lying in bed in NAD. Afebrile. K level 1.5 this morning. Objective Vital Signs Date Time Temp Pulse Resp B/P Pulse Ox O2 Delivery O2 Flow Rate FiO2 01/04/17 09:05 100 01/04/17 06:00 67 01/04/17 04:00 98.2 20 85/60 01/03/17 23:08 21 01/03/17 12:16 Room Air Intake and Output 01/03/17 01/03/17 01/04/17 08:00 16:00 00:00 Intake Total 3500 ml 1205 ml Output Total 1520 ml 950 ml Balance 1980 ml 255 ml Result Diagram: 01/04/17 0523 01/04/17 0523 Other Results Laboratory Tests Test 01/03/17 01/03/17 01/04/17 13:50 17:11 05:23 Nasal Screen MRSA (PCR) NEGATIVE Sodium Level 142 MEQ/L 138 MEQ/L Potassium Level 1.9 MEQ/L 1.5 MEQ/L Chloride Level 104 MEQ/L 97 MEQ/L Carbon Dioxide Level 20.4 MEQ/L 19.3 MEQ/L Anion Gap 18 MEQ/L 22 MEQ/L Blood Urea Nitrogen 58 MG/DL 51 MG/DL Creatinine 2.75 MG/DL 2.09 MG/DL Estimat Glomerular Filtration 19 ML/MIN 26 ML/MIN Rate Random Glucose 83 MG/DL 56 MG/DL Calcium Level 7.6 MG/DL 6.8 MG/DL Vitamin B12 Level 736 PG/ML Folate GREATER THAN 20.0 NG/ML Free Thyroxine 0.50 NG/DL Thyroid Stimulating Hormone 0.327 uIU/ML 3rd Gen Random Cortisol 16.4 MCG/DL White Blood Count 9.7 TH/MM3 Red Blood Count 3.06 MIL/MM3 Hemoglobin 8.8 GM/DL Hematocrit 25.7 % Mean Corpuscular Volume 83.9 FL Mean Corpuscular Hemoglobin 28.8 PG Mean Corpuscular Hemoglobin 34.3 % Concent Red Cell Distribution Width 14.9 % Platelet Count 188 TH/MM3 Mean Platelet Volume 8.6 FL Protein Corrected Calcium 7.6 MG/DL Total Protein 5.6 GM/DL Lipase 460 U/L Imaging Last Impressions Renal Ultrasound 01/03/17 1218 Signed Impressions: Service Date/Time: Tuesday, January 03, 2017 12:35 - CONCLUSION: Normal examination except for slight increased echogenicity to both renal cortices suggesting mild chronic medical renal disease. Feliz Leung MD Chest X-Ray 01/03/17 0000 Signed Impressions: Service Date/Time: Tuesday, January 03, 2017 09:34 - CONCLUSION: Normal examination. Feliz Leung MD Abdomen/Pelvis CT 01/03/17 0000 Signed Impressions: Service Date/Time: Tuesday, January 03, 2017 09:49 - CONCLUSION: Normal examination. Dense stool throughout distended colon Feliz Leung MD Objective Remarks GENERAL: Appearing middle-aged female, sitting up in bed HEENT: Normocephalic. Atraumatic. Pupils equal, round, reactive, conjugate. NECK: Neck is midline. There is no JVD. CHEST: Equal chest rise. Clear to auscultation bilaterally. CARDIOVASCULAR: Heart rate, regular rhythm. S1 and S2 without appreciable murmurs. ABDOMEN: Soft, diffusely tender to palpitation, no guarding or rebound. MUSCULOSKELETAL: Distal pulses 2+ no peripheral edema. NEUROLOGICAL: RASS 0. Subjectively she has decreased sensation to fine touch in a stocking distribution over her dorsum hands and feet. Otherwise grossly neuro intact. A/P Assessment and Plan Assessment: 41yF with multiple complaints of fatigue, nausea, vomiting, and weakness, now found to have acute kidney injury and severe life-threatening hypokalemia. 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 Check MRI pituitary gland and Hypothalamus r/o central hypothyroidism Pulm: Oxygen PRN keep sat >92% CV: Monitor HR and BP keep MAP>65mmHg. Lactic acid 1.1 GI: Start PO diet : Monitor renal function, electrolytes replacement per protocol. Renal function improving with Cr: 2.0 from 3.79 Continue with IVF - on 11/07 NS+ 75meq bicarb+40KCL @42ml/hr Discussed with Dr. Valenzuela. ID: Monitor for signs of infections ( Fever, WBC) follow up on BC. Continue with Aztreonam and Flagyl for now. WBC trending down. Heme: Monitor CBC Endo: Patient with low TSH: 0.32, low FT4 0.5 Will check US thyroid, MRI pituitary and hypothalamus r/o central hypothyroidism. Check thyroid peroxidase ab, Prolactin level, ELLE ( hx Lupus per patient) Place on Synthroid 25mcg daily and hydrocortisone 100mg IV Q8 ( ? adrenal suppression) SSI with accuchecks SCDs, SQ Heparin for DVT prophylaxis Protonix for GI prophylaxis Level 3 Israel Thompson MD Jan 04, 2017 10:52
--- NOTE | 2017-01-04 11:39 | EKG ---
Date Performed: 01/03/2017 Time Performed: 10:23:34 PTAGE: 41 years EKG: Sinus rhythm INTRAVENTRICULAR CONDUCTION DELAY ABNORMAL ECG PREVIOUS TRACING : 04/19/2016 07.17 DOCTOR: Feliz Leiva Interpretating Date/Time 01/04/2017 11:38:31
--- NOTE | 2017-01-04 12:37 | RADRPT ---
EXAM DATE/TIME: 01/04/2017 11:43 [facility] COMPARISON: No previous studies available for comparison. INDICATIONS : Hypothyroidism. MEDICAL HISTORY : Inflammatory bowel disease. Gastroesophageal reflux disease. Ulcerative colitis . Migraines. A.FIB. Ulcers. Kidney stones. Interstital cystitis. Endometriosis. Bipolar. PTSD. Ovaria n cyst. Uterian Cancer. Appendix cancer. Hypokalemia. Acute kidney injury. SURGICAL HISTORY : Appendectomy. Hysterectomy. Removal of oral abscess. Laparoscopy. ENCOUNTER: Initial ACUITY: 1 day PAIN SCORE: 0/10 LOCATION: Bilateral neck MEASUREMENTS: RIGHT LOBE: 3.8 x 1.7 x 1.3 cm LEFT LOBE: 3.5 x 1.2 x 1.3 cm FINDINGS: RIGHT LOBE: \There are small cystic and solid nodules in the right lobe. The largest measures 0. 2 cm and is cystic. LEFT LOBE: There is an small 4 mm cystic area in the left lobe of the thyroid. ISTHMUS: Normal in size without focal abnormality. CONCLUSION: Scattered small cystic areas in both lobes of thyroid. Nathainel Porter MD FACR on January 04, 2017 at 12:33 Board Certified Radiologist. This report was verified electronically.
[2017-01-04] MEDS: LEVOTHYROXINE SODIUM 25 MCG TAB PO SCH (13:02)
[2017-01-04] MEDS: HYDROCORTISONE SOD SUCCINATE 100 MG VIAL IV PUSH SCH ×2 (13:03→19:16)
--- NOTE | 2017-01-04 13:06 | HHI.NPPN ---
Subjective Renal Failure: Acute Interval History She is awake. Denies further vomiting, no diarrhea. K is lower today after replacement. (Lissette Padilla) Review of Systems General Constitutional: Fatigue (Lissette Padilla) Objective Data Data 01/03/17 01/04/17 19:00 07:00 Intake Total 3500 ml 2510 ml Output Total 1520 ml 2750 ml Balance 1980 ml -240 ml Intake Oral 0 ml IV Total 3500 ml 2510 ml Output Urine Total 1500 ml 2750 ml Emesis 20 ml # Voids 1 0 Vital Signs Date Time Temp Pulse Resp B/P Pulse Ox O2 Delivery O2 Flow Rate FiO2 01/04/17 09:05 100 01/04/17 06:00 67 01/04/17 04:00 98.2 68 20 85/60 98 01/04/17 04:00 68 01/04/17 02:00 66 01/04/17 00:00 98.0 69 20 98/53 100 01/04/17 00:00 69 01/03/17 23:08 100 21 01/03/17 22:00 68 01/03/17 20:00 66 01/03/17 20:00 97.6 66 20 110/60 100 01/03/17 18:00 97.7 68 14 103/61 97 01/03/17 18:00 68 01/03/17 16:00 69 01/03/17 16:00 69 20 110/75 99 01/03/17 15:00 70 01/03/17 15:00 74 25 122/68 99 01/03/17 14:00 75 01/03/17 14:00 98.0 75 20 126/79 99 01/03/17 14:00 75 01/03/17 13:10 89 20 130/80 96 (Lissette Padilla) -: 01/04/17 0523 01/04/17 0523 Imaging Last 72 hours Impressions Thyroid Ultrasound 01/04/17 0000 Signed Impressions: Service Date/Time: Wednesday, January 04, 2017 11:43 - CONCLUSION: Scattered small cystic areas in both lobes of thyroid. Nathaniel Porter MD FACR Renal Ultrasound 01/03/17 1218 Signed Impressions: Service Date/Time: Tuesday, January 03, 2017 12:35 - CONCLUSION: Normal examination except for slight increased echogenicity to both renal cortices suggesting mild chronic medical renal disease. Feliz Leung MD Chest X-Ray 01/03/17 0000 Signed Impressions: Service Date/Time: Tuesday, January 03, 2017 09:34 - CONCLUSION: Normal examination. Feliz Leung MD Abdomen/Pelvis CT 01/03/17 0000 Signed Impressions: Service Date/Time: Tuesday, January 03, 2017 09:49 - CONCLUSION: Normal examination. Dense stool throughout distended colon Feliz Leung MD (Lissette Padilla. AUTOMATIC QUILLING MACHINE OPERATOR) Physical Exam General Appearance: No Acute Distress, Comfortable, Malnourished (Lissette Padilla B. AUTOMATIC QUILLING MACHINE OPERATOR) Eyes Eye Exam: Pupils Equal (Lissette Padilla B. AUTOMATIC QUILLING MACHINE OPERATOR) Throat Throat Remarks poor dentition (Lissette Padilla B. AUTOMATIC QUILLING MACHINE OPERATOR) Pulmonary Resp Exam: Clear Bilaterally, Breath Sounds Equal (Lissette Padilla B. AUTOMATIC QUILLING MACHINE OPERATOR) Cardiology CV Exam: Regular (Lissette Padilla. AUTOMATIC QUILLING MACHINE OPERATOR) Gastrointestinal/Abdomen GI Exam: Soft, Bowel Sounds Present GI Remarks slightly tender (Lissette Padilla B. AUTOMATIC QUILLING MACHINE OPERATOR) Musculoskeletal MS Exam: Joints Intact, Normal Tone (Lissette Padilla B. AUTOMATIC QUILLING MACHINE OPERATOR) Integumentary Skin Exam: Warm, Dry (Lissette Padilla B. AUTOMATIC QUILLING MACHINE OPERATOR) Extremeties Extremities Exam: No Edema, Pedal Pulses Palpable (Lissette Padilla B. AUTOMATIC QUILLING MACHINE OPERATOR) Neurologic Neuro Exam: Alert, Awake, Oriented, Speech Clear, Moving All Extremities ( Lissette Padilla B. AUTOMATIC QUILLING MACHINE OPERATOR) Psychiatric Psych Exam: Appropriate Responses (Lissette Padilla) Assessment/Plan Discussed Condition With: Patient Assessment Summary: SHABANA/Acute Renal Failure, Dehydration Electrolyte Assessment: Hypokalemia Problem List: (1) Hypokalemia Plan: continue IV and PO correction with serial monitoring unknown etiology, this is chronic as she has been seen multiple admission for the same we will order 24 hr urine for K to evaluate for renal wasting if this is low hypokalemia may be due to GI losses; an eating disorder may be contributing although she denies (2) SHABANA (acute kidney injury) Plan: Improving with IVF renal US negative K correction as above she is non oliguric renal panel in am (3) Metabolic acidosis Plan: confusing picture; she reports vomiting which would cause alkalosis and denies diarrhea (that would better explain this picture) acidosis typically causes hyperkalemia on IVF with bicarbonate and K, continue (4) Dehydration Plan: improving with IVF, continue and monitor response (Lissette Padilla) Plan patient was seen and examined. Discussed with Dr. Gutierrez. Ordered 24 hour urine collection for potassium and Magnesium. Low TSH: suggests secondary hypothyroidism, also consider sick euthyroid state. (Quirino Valenzuela MD) Lissette Padilla Jan 04, 2017 13:06 Quirino Valenzuela MD Jan 05, 2017 10:54
[2017-01-04] MEDS: MORPHINE SULFATE 4 MG/ML INJ IV PUSH PRN ×3 (13:56→22:23)
[2017-01-04] MEDS: CHLORHEXIDINE GLUCONATE 2 % 1 PACK (2 CLOTHS) TOP SCH (21:11)
[2017-01-04 21:13] LABS: BICARBONATE 27.2 MEQ/L (21.0-32.0)
[2017-01-04] MEDS: SODIUM CHLORIDE 0.9% FLUSH 5 ML FLUSH IV FLUSH PRN (22:23)
[2017-01-05] VITALS (13 sets, daily range): BP systolic 98–121; BP diastolic 54–70; PULSE 64–110; RESP 12–21; TEMP 98.1–99.3; O2SAT 95–100
[2017-01-05] MEDS: metroNIDAZOLE 500 MG INJ 100 ML IV SCH ×5 (00:09→23:10)
[2017-01-05] MEDS: INSULIN NovoLIN REGULAR SUPPLEMENTAL SCALE SQ SCH ×6 (02:32→23:10)
[2017-01-05] MEDS: HYDROCORTISONE SOD SUCCINATE 100 MG VIAL IV PUSH SCH ×3 (02:32→18:14)
[2017-01-05] MEDS: MORPHINE SULFATE 4 MG/ML INJ IV PUSH PRN ×4 (02:32→22:34)
[2017-01-05] MEDS: LEVOTHYROXINE SODIUM 25 MCG TAB PO SCH (05:21)
[2017-01-05] MEDS: HEPARIN SODIUM - SQ 10,000 UNITS/ML VIAL SQ SCH ×3 (05:22→20:52)
[2017-01-05 05:41] LABS: AUTOMATED NEUTROPHIL # 10.8 TH/MM3 (1.8-7.7); HEMATOCRIT 24.2 % (35.0-46.0); HEMO FLAGS DIFF FINAL; LYMPH % 2.9 % (9.0-44.0); LYMPHOCYTE # 0.3 TH/MM3 (1.0-4.8); MEAN CELL VOLUME 82.7 FL (80.0-100.0); MEAN CORPUSCULAR HEMOGLOBIN 28.7 PG (27.0-34.0); MEAN CORPUSCULAR HGB CONC 34.7 % (32.0-36.0); MONO % 2.7 % (0.0-8.0); NEUT % 94.4 % (16.0-70.0); PLATELET COUNT 217 TH/MM3 (150-450); RED BLOOD COUNT 2.93 MIL/MM3 (4.00-5.30); RED CELL DISTRIBUTION WIDTH 15.2 % (11.6-17.2); WHITE BLOOD COUNT 11.4 TH/MM3 (4.0-11.0)
[2017-01-05 06:11] LABS: BICARBONATE 24.6 MEQ/L (21.0-32.0); MAGNESIUM 2.2 MG/DL (1.5-2.5)
[2017-01-05 06:12] LABS: POTASSIUM 2.2 MEQ/L (3.5-5.1)
[2017-01-05] MEDS: POTASSIUM CHLOR 20 MEQ PREMIX 100 ML IV PRN ×3 (06:20→18:14)
[2017-01-05] MEDS: POTASSIUM CL 40 MEQ/30 ML LIQ UDC PO/TUBE PRN (06:20)
[2017-01-05] MEDS: PANTOPRAZOLE SODIUM 40 MG VIAL IV SCH (07:59)
[2017-01-05] MEDS: AZTREONAM INJ 500 MG in SODIUM CHLORIDE 0.9% INJ 100 ML IV SCH ×2 (07:59→20:52)
[2017-01-05] MEDS: SODIUM CHLORIDE 0.9% FLUSH 5 ML FLUSH IV FLUSH SCH ×2 (08:00→20:52)
--- NOTE | 2017-01-05 09:55 | HHI.CCPN ---
Subjective Remarks/Hospital Course 41yF with a fairly recent history of multiple ICU admissions for severe hypokalemia. Her symptoms she states started back in July or August of last year where she noticed hair loss, weight loss, fatigue, nausea, vomiting, diarrhea. She has now had over 100 pounds of weight loss since last August. She showed me pictures of large clumps of hair that she is lost over this time period. She states that she now carries diagnoses of gastroparesis, ulcerative colitis, lupus, bipolar disorder. She states that she thinks all these diagnoses are wrong, but she has not found anyone that is been able to find an accurate diagnosis. She also states that her teeth have been following out over the same time period. She states she has numbness and tingling, more so in her hands and feet. She states she has intermittent chills, but no fever. She also endorses that more recently over the last few weeks she has started to lactate. She is not , and his pump and section active for more than a year. She denies breast pain. She denies any blood in her stool or hematemesis. She does endorse significant fatigue. She denies chest pain or difficulty breathing. On today's exam, she endorses a very vague crampy pain all over from her chest down to her abdomen, pelvis, back area. She does not know if anything aggravates or relieves the pain. Is very difficult to get a good history because the patient goes off on tangents frequently is hard to tie down to a clear answer to my questions. In emergency department, she was found to have a white count of 22,000 with a left shift, a serum potassium of 1.9, serum sodium 133. Critical care medicine has been consulted to evaluate and manage her severe life -threatening hypokalemia. 01/04 Patient is lying in bed in NAD. Afebrile. K level 1.5 this morning. 3/2 No acute events overnight. Awake and alert. K 2.2 today Objective Vital Signs Date Time Temp Pulse Resp B/P Pulse Ox O2 Delivery O2 Flow Rate FiO2 01/05/17 06:00 64 01/05/17 04:00 99.1 16 105/64 98 01/03/17 23:08 21 01/03/17 12:16 Room Air Intake and Output 01/04/17 01/04/17 01/05/17 08:00 16:00 00:00 Intake Total 1305 ml 1918 ml 1009 ml Output Total 1800 ml 1575 ml 1000 ml Balance -495 ml 343 ml 9 ml Result Diagram: 01/05/17 0500 01/05/17 0500 Other Results Laboratory Tests Test 01/04/17 01/05/17 19:51 05:00 Sodium Level 138 MEQ/L 143 MEQ/L Potassium Level 2.0 MEQ/L 2.2 MEQ/L Chloride Level 102 MEQ/L 106 MEQ/L Carbon Dioxide Level 27.2 MEQ/L 24.6 MEQ/L Anion Gap 9 MEQ/L 12 MEQ/L Blood Urea Nitrogen 44 MG/DL 38 MG/DL Creatinine 1.94 MG/DL 1.34 MG/DL Estimat Glomerular Filtration 29 ML/MIN 44 ML/MIN Rate Random Glucose 217 MG/DL 134 MG/DL Calcium Level 7.1 MG/DL 7.7 MG/DL Protein Corrected Calcium 8.0 MG/DL Total Protein 5.4 GM/DL White Blood Count 11.4 TH/MM3 Red Blood Count 2.93 MIL/MM3 Hemoglobin 8.4 GM/DL Hematocrit 24.2 % Mean Corpuscular Volume 82.7 FL Mean Corpuscular Hemoglobin 28.7 PG Mean Corpuscular Hemoglobin 34.7 % Concent Red Cell Distribution Width 15.2 % Platelet Count 217 TH/MM3 Mean Platelet Volume 8.2 FL Neutrophils (%) (Auto) 94.4 % Lymphocytes (%) (Auto) 2.9 % Monocytes (%) (Auto) 2.7 % Eosinophils (%) (Auto) 0.0 % Basophils (%) (Auto) 0.0 % Neutrophils # (Auto) 10.8 TH/MM3 Lymphocytes # (Auto) 0.3 TH/MM3 Monocytes # (Auto) 0.3 TH/MM3 Eosinophils # (Auto) 0.0 TH/MM3 Basophils # (Auto) 0.0 TH/MM3 CBC Comment DIFF FINAL Differential Comment Phosphorus Level 0.6 MG/DL Magnesium Level 2.2 MG/DL Lipase 562 U/L Imaging Last Impressions Renal Ultrasound 01/03/17 1218 Signed Impressions: Service Date/Time: Tuesday, January 03, 2017 12:35 - CONCLUSION: Normal examination except for slight increased echogenicity to both renal cortices suggesting mild chronic medical renal disease. Feliz Leung MD Chest X-Ray 01/03/17 0000 Signed Impressions: Service Date/Time: Tuesday, January 03, 2017 09:34 - CONCLUSION: Normal examination. Feliz Leung MD Abdomen/Pelvis CT 01/03/17 0000 Signed Impressions: Service Date/Time: Tuesday, January 03, 2017 09:49 - CONCLUSION: Normal examination. Dense stool throughout distended colon Feliz Leung MD Objective Remarks GENERAL: Appearing middle-aged female, sitting up in bed HEENT: Normocephalic. Atraumatic. Pupils equal, round, reactive, conjugate. NECK: Neck is midline. There is no JVD. CHEST: Equal chest rise. Clear to auscultation bilaterally. CARDIOVASCULAR: Heart rate, regular rhythm. S1 and S2 without appreciable murmurs. ABDOMEN: Soft, diffusely tender to palpitation, no guarding or rebound. MUSCULOSKELETAL: Distal pulses 2+ no peripheral edema. NEUROLOGICAL: RASS 0. Subjectively she has decreased sensation to fine touch in a stocking distribution over her dorsum hands and feet. Otherwise grossly neuro intact. A/P Assessment and Plan Assessment: 41yF with multiple complaints of fatigue, nausea, vomiting, and weakness, now found to have acute kidney injury and severe life-threatening hypokalemia. 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 Check MRI pituitary gland and Hypothalamus r/o central hypothyroidism Pulm: Oxygen PRN keep sat >92% CV: Monitor HR and BP keep MAP>65mmHg. Lactic acid 1.1 GI: On PO diet : Monitor renal function, electrolytes replacement per protocol. Will need K, phos replacement today Renal function improving with Cr: 1.34 today from 1.94 d/c bicarb drip. renal- Dr. Valenzuela ID: Monitor for signs of infections ( Fever, WBC) follow up on 01/03: NGTD. Continue with Aztreonam and Flagyl for now. Heme: Monitor CBC Endo: Patient with low TSH: 0.32, low FT4 0.5 US thyroid: Small cystic areas in both lobs of thyroid Check MRI pituitary and hypothalamus r/o central hypothyroidism. Check thyroid peroxidase ab, Prolactin level, ELLE ( hx Lupus per patient) on Synthroid 25mcg daily and hydrocortisone 100mg IV Q8 ( ? adrenal suppression) SSI with accuchecks SCDs, SQ Heparin for DVT prophylaxis Protonix for GI prophylaxis Level 3 Israel Thompson MD Jan 05, 2017 09:55
--- NOTE | 2017-01-05 10:04 | HHI.NPPN ---
Subjective Complaints: Abdominal Pain Renal Failure: Acute Interval History Renal function is better. 24 hr urine was not collected. Awake with vague complaints. (Lissette Padilla) Review of Systems General Constitutional: Fatigue (Lissette Padilla) Objective Data Data 01/04/17 01/05/17 19:00 07:00 Intake Total 1918 ml 1804 ml Output Total 1575 ml 1700 ml Balance 343 ml 104 ml Intake Oral 720 ml 640 ml IV Total 1198 ml 1164 ml Output Urine Total 1575 ml 1700 ml # Bowel Movements 0 3 Vital Signs Date Time Temp Pulse Resp B/P Pulse Ox O2 Delivery O2 Flow Rate FiO2 01/05/17 06:00 64 01/05/17 04:00 99.1 65 16 105/64 98 01/05/17 04:00 65 01/05/17 02:00 65 01/05/17 00:00 99.3 67 12 98/54 98 01/05/17 00:00 67 01/04/17 22:00 67 01/04/17 20:00 98.4 92 24 118/59 97 01/04/17 20:00 92 01/04/17 18:00 75 01/04/17 16:00 72 01/04/17 16:00 98.6 82 16 97/56 97 01/04/17 14:00 93 01/04/17 12:00 77 01/04/17 12:00 98.7 77 22 98/54 99 (Lissette Padilla) -: 01/05/17 0500 01/05/17 0500 Imaging Last 72 hours Impressions Thyroid Ultrasound 01/04/17 0000 Signed Impressions: Service Date/Time: Wednesday, January 04, 2017 11:43 - CONCLUSION: Scattered small cystic areas in both lobes of thyroid. Nathaniel Porter MD FACR Renal Ultrasound 01/03/17 1218 Signed Impressions: Service Date/Time: Tuesday, January 03, 2017 12:35 - CONCLUSION: Normal examination except for slight increased echogenicity to both renal cortices suggesting mild chronic medical renal disease. Feliz Leung MD Chest X-Ray 01/03/17 0000 Signed Impressions: Service Date/Time: Tuesday, January 03, 2017 09:34 - CONCLUSION: Normal examination. Feliz Leung MD Abdomen/Pelvis CT 01/03/17 0000 Signed Impressions: Service Date/Time: Tuesday, January 03, 2017 09:49 - CONCLUSION: Normal examination. Dense stool throughout distended colon Feliz Leung MD (Lissette Padilla B. [employer] AUT[employer] BODY REPAIRER) Physical Exam General Appearance: No Acute Distress, Comfortable, Malnourished (Lissette Padilla B. [employer] BODY REPAIRER) Eyes Eye Exam: Pupils Equal (Lissette Padilla B. [employer] BODY REPAIRER) Throat Throat Remarks poor dentition (Lissette Padilla B. [employer] BODY REPAIRER) Pulmonary Resp Exam: Clear Bilaterally, Breath Sounds Equal (Lissette Padilla B. [employer] BODY REPAIRER) Cardiology CV Exam: Regular, Normal Sinus Rhythm (Lissette Padilla B. [employer] BODY REPAIRER) Gastrointestinal/Abdomen GI Exam: Soft, Bowel Sounds Present GI Remarks slightly tender (Lissette Padilla B. [employer] BODY REPAIRER) Musculoskeletal MS Exam: Joints Intact, Normal Tone (Lissette Padilla B. [employer] BODY REPAIRER) Integumentary Skin Exam: Clear, Warm, Dry, Intact (Lissette Padilla B. [employer] BODY REPAIRER) Extremeties Extremities Exam: No Edema, Pedal Pulses Palpable (Lissette Padilla B. [employer]ODY REPAIRER) Neurologic Neuro Exam: Alert, Awake, Oriented, Speech Clear, Moving All Extremities ( Lissette Padilla B. [employer]ODY REPAIRER) Psychiatric Psych Exam: Appropriate Responses (Lissette Padilla. [employer]ODY REPAIRER) Assessment/Plan Discussed Condition With: Patient Assessment Summary: SHABANA/Acute Renal Failure, Dehydration Electrolyte Assessment: Hypokalemia Problem List: (1) Hypokalemia Plan: continue IV and PO correction with serial monitoring unknown etiology, this is chronic as she has been seen multiple admission for the same 24 hr urine for K and mag being collected to evaluate for renal wasting, D/W nurse (2) SHABANA (acute kidney injury) Plan: Improving with IVF, changed to 1/2 with KCL at 75cc/hr acidosis corrected K improving, correction as above renal US negative she does have proteinuria, reports questionable diagnosis of SLE, ELLE pending she is non oliguric; aparicio in place avoid nephrotoxins, would prefer to wait for MRI with contrast until renal function further improves renal panel in am (3) Metabolic acidosis Plan: corrected, off bicarb; monitor metabolic panel she reported vomiting which has resolved, typically does not cause acidosis; denies diarrhea since admission (4) Dehydration Plan: improving with IVF, continue and monitor response (Lissette Padilla) Plan patient was seen and examined. Continue replacing potassium. Replace phosphorus. Needs MRI of the pituitary to rule out pituitary tumor. Prolactin level is pending. (Quirino Valenzuela MD) Lissette Padilla Jan 05, 2017 10:04 Quirino Valenzuela MD Jan 05, 2017 15:13
[2017-01-05] MEDS: 1/2 NS + KCL 20 MEQ INJ 1,000 ML IV SCH ×2 (10:14→22:35)
[2017-01-05] MEDS: POTASSIUM PHOSPHATE INJ 30 MMOL in SODIUM CHLOR 0.9% 250 ML INJ 250 ML IV PRN (20:51)
[2017-01-05 23:35] LABS: POTASSIUM 2.9 MEQ/L (3.5-5.1)
[2017-01-06] VITALS (14 sets, daily range): BP systolic 122–143; BP diastolic 71–94; PULSE 76–103; RESP 11–28; TEMP 98.2–99.6; O2SAT 93–99
[2017-01-06] MEDS: INSULIN NovoLIN REGULAR SUPPLEMENTAL SCALE SQ SCH ×6 (03:12→23:03)
[2017-01-06] MEDS: HEPARIN SODIUM - SQ 10,000 UNITS/ML VIAL SQ SCH ×3 (03:13→21:12)
[2017-01-06] MEDS: CHLORHEXIDINE GLUCONATE 2 % 1 PACK (2 CLOTHS) TOP SCH (03:13)
[2017-01-06] MEDS: MORPHINE SULFATE 4 MG/ML INJ IV PUSH PRN ×4 (03:13→23:04)
[2017-01-06] MEDS: HYDROCORTISONE SOD SUCCINATE 100 MG VIAL IV PUSH SCH ×3 (03:13→21:13)
[2017-01-06 06:05] LABS: AUTOMATED NEUTROPHIL # 17.1 TH/MM3 (1.8-7.7); BASOPHIL % 0.2 % (0.0-2.0); HEMO FLAGS DIFF FINAL; LYMPH % 3.8 % (9.0-44.0); LYMPHOCYTE # 0.7 TH/MM3 (1.0-4.8); MEAN CELL VOLUME 85.2 FL (80.0-100.0); MEAN CORPUSCULAR HEMOGLOBIN 28.3 PG (27.0-34.0); MEAN CORPUSCULAR HGB CONC 33.2 % (32.0-36.0); MONO % 3.7 % (0.0-8.0); NEUT % 92.3 % (16.0-70.0); PLATELET COUNT 287 TH/MM3 (150-450); RED BLOOD COUNT 3.05 MIL/MM3 (4.00-5.30); RED CELL DISTRIBUTION WIDTH 15.6 % (11.6-17.2); WHITE BLOOD COUNT 18.6 TH/MM3 (4.0-11.0)
[2017-01-06] MEDS: metroNIDAZOLE 500 MG INJ 100 ML IV SCH ×4 (06:15→23:03)
[2017-01-06] MEDS: LEVOTHYROXINE SODIUM 25 MCG TAB PO SCH (06:15)
[2017-01-06 06:54] LABS: BICARBONATE 21.2 MEQ/L (21.0-32.0)
[2017-01-06 07:14] LABS: POTASSIUM 2.6 MEQ/L (3.5-5.1)
[2017-01-06] MEDS: SODIUM CHLORIDE 0.9% FLUSH 5 ML FLUSH IV FLUSH SCH ×2 (08:03→21:13)
[2017-01-06] MEDS: POTASSIUM CHLOR 20 MEQ PREMIX 100 ML IV PRN ×3 (08:03→23:05)
[2017-01-06] MEDS: PANTOPRAZOLE SODIUM 40 MG VIAL IV SCH (08:03)
[2017-01-06] MEDS: AZTREONAM INJ 500 MG in SODIUM CHLORIDE 0.9% INJ 100 ML IV SCH ×2 (08:40→21:13)
[2017-01-06] MEDS: POTASSIUM PHOSPHATE INJ 30 MMOL in SODIUM CHLOR 0.9% 250 ML INJ 250 ML IV PRN (08:41)
--- NOTE | 2017-01-06 09:28 | HHI.CCPN ---
Subjective Remarks/Hospital Course 41yF with a fairly recent history of multiple ICU admissions for severe hypokalemia. Her symptoms she states started back in July or August of last year where she noticed hair loss, weight loss, fatigue, nausea, vomiting, diarrhea. She has now had over 100 pounds of weight loss since last August. She showed me pictures of large clumps of hair that she is lost over this time period. She states that she now carries diagnoses of gastroparesis, ulcerative colitis, lupus, bipolar disorder. She states that she thinks all these diagnoses are wrong, but she has not found anyone that is been able to find an accurate diagnosis. She also states that her teeth have been following out over the same time period. She states she has numbness and tingling, more so in her hands and feet. She states she has intermittent chills, but no fever. She also endorses that more recently over the last few weeks she has started to lactate. She is not , and his pump and section active for more than a year. She denies breast pain. She denies any blood in her stool or hematemesis. She does endorse significant fatigue. She denies chest pain or difficulty breathing. On today's exam, she endorses a very vague crampy pain all over from her chest down to her abdomen, pelvis, back area. She does not know if anything aggravates or relieves the pain. Is very difficult to get a good history because the patient goes off on tangents frequently is hard to tie down to a clear answer to my questions. In emergency department, she was found to have a white count of 22,000 with a left shift, a serum potassium of 1.9, serum sodium 133. Critical care medicine has been consulted to evaluate and manage her severe life -threatening hypokalemia. 01/04 Patient is lying in bed in NAD. Afebrile. K level 1.5 this morning. 3/2 No acute events overnight. Awake and alert. K 2.2 today 01/06 Patient is lying in bed in NAD. K 2.6 this morning. Objective Vital Signs Date Time Temp Pulse Resp B/P Pulse Ox O2 Delivery O2 Flow Rate FiO2 01/06/17 06:00 77 01/06/17 04:00 98.6 12 131/71 97 01/05/17 20:58 21 01/03/17 12:16 Room Air Intake and Output 01/05/17 01/05/17 01/06/17 08:00 16:00 00:00 Intake Total 795 ml 1460 ml 2244 ml Output Total 700 ml 750 ml 700 ml Balance 95 ml 710 ml 1544 ml Result Diagram: 01/06/17 0459 01/06/17 0459 Other Results Laboratory Tests Test 01/05/17 01/05/17 01/06/17 16:32 22:28 04:59 Potassium Level 2.6 MEQ/L 2.9 MEQ/L 2.6 MEQ/L Phosphorus Level 0.3 MG/DL 1.4 MG/DL White Blood Count 18.6 TH/MM3 Red Blood Count 3.05 MIL/MM3 Hemoglobin 8.6 GM/DL Hematocrit 26.0 % Mean Corpuscular Volume 85.2 FL Mean Corpuscular Hemoglobin 28.3 PG Mean Corpuscular Hemoglobin 33.2 % Concent Red Cell Distribution Width 15.6 % Platelet Count 287 TH/MM3 Mean Platelet Volume 8.3 FL Neutrophils (%) (Auto) 92.3 % Lymphocytes (%) (Auto) 3.8 % Monocytes (%) (Auto) 3.7 % Eosinophils (%) (Auto) 0.0 % Basophils (%) (Auto) 0.2 % Neutrophils # (Auto) 17.1 TH/MM3 Lymphocytes # (Auto) 0.7 TH/MM3 Monocytes # (Auto) 0.7 TH/MM3 Eosinophils # (Auto) 0.0 TH/MM3 Basophils # (Auto) 0.0 TH/MM3 CBC Comment DIFF FINAL Differential Comment Sodium Level 146 MEQ/L Chloride Level 112 MEQ/L Carbon Dioxide Level 21.2 MEQ/L Anion Gap 13 MEQ/L Blood Urea Nitrogen 22 MG/DL Creatinine 1.19 MG/DL Estimat Glomerular Filtration 50 ML/MIN Rate Random Glucose 162 MG/DL Calcium Level 8.0 MG/DL Magnesium Level 2.0 MG/DL Imaging Last Impressions Thyroid Ultrasound 01/04/17 0000 Signed Impressions: Service Date/Time: Wednesday, January 04, 2017 11:43 - CONCLUSION: Scattered small cystic areas in both lobes of thyroid. Nathaniel Porter MD FACR Renal Ultrasound 01/03/17 1218 Signed Impressions: Service Date/Time: Tuesday, January 03, 2017 12:35 - CONCLUSION: Normal examination except for slight increased echogenicity to both renal cortices suggesting mild chronic medical renal disease. Feliz Leung MD Chest X-Ray 01/03/17 0000 Signed Impressions: Service Date/Time: Tuesday, January 03, 2017 09:34 - CONCLUSION: Normal examination. Feliz Leung MD Abdomen/Pelvis CT 01/03/17 0000 Signed Impressions: Service Date/Time: Tuesday, January 03, 2017 09:49 - CONCLUSION: Normal examination. Dense stool throughout distended colon Feliz Leung MD Objective Remarks GENERAL: Patient is lying in bed in NAD HEENT: Normocephalic. Atraumatic. Pupils equal, round, reactive, conjugate. NECK: Neck is midline. There is no JVD. CHEST: Equal chest rise. Clear to auscultation bilaterally. CARDIOVASCULAR: Heart rate, regular rhythm. S1 and S2 without appreciable murmurs. ABDOMEN: Soft, mild tenderness on palpitation, no guarding or rebound. MUSCULOSKELETAL: Distal pulses 2+ no peripheral edema. NEUROLOGICAL: RASS 0. Subjectively she has decreased sensation to fine touch in a stocking distribution over her dorsum hands and feet. Otherwise grossly neuro intact. A/P Assessment and Plan Assessment: 41yF with multiple complaints of fatigue, nausea, vomiting, and weakness, now found to have acute kidney injury and severe life-threatening hypokalemia. 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 8)Hx Bipolar disorder and Anxiety Plan: Neuro: Awake and alert. Psych eval ( Anxiety, hx Bipolar) Check MRI pituitary gland and Hypothalamus r/o central hypothyroidism Pulm: Oxygen PRN keep sat >92% CV: Monitor HR and BP keep MAP>65mmHg. Lactic acid 1.1 GI: On PO diet , GI eval might need EGD and colonoscopy ( hx UC, gastroparesis per patient) CT abd/pelvis: No acute findings : Monitor renal function, electrolytes replacement per protocol. Will need K, phos replacement today Renal function improving continue with IVF 1/2NS+20KCL @75ml/hr Renal- Dr. Valenzuela ID: Monitor for signs of infections ( Fever, WBC) follow up on BC 01/03: NGTD. Continue with Aztreonam and Flagyl for now. Heme: Monitor CBC Endo: Patient with low TSH: 0.32, low FT4 0.5 US thyroid: Small cystic areas in both lobs of thyroid Check MRI pituitary and hypothalamus r/o central hypothyroidism. Follow up on thyroid peroxidase ab, ELLE negative on Synthroid 25mcg daily, decrease hydrocortisone 50mg IV Q6 ( ? Borderline adrenal suppression) SSI with accuchecks SCDs, SQ Heparin for DVT prophylaxis Protonix for GI prophylaxis Level 2 Israel Thompson MD Jan 06, 2017 09:28
[2017-01-06 10:23] LABS: POTASSIUM 24 HOUR URINE 55 MEQ/24HR (40-80); POTASSIUM TIMED URINE 38 MEQ/L
--- NOTE | 2017-01-06 11:06 | HHI.NPPN ---
Subjective Complaints: Abdominal Pain Renal Failure: Acute Interval History She is very anxious today. Renal function is better. K is not responding to replacement. (Lissette Padilla) Review of Systems General Constitutional: Fatigue (Lissette Padilla) Objective Data Data 01/05/17 01/06/17 19:00 07:00 Intake Total 1460 ml 3726 ml Output Total 750 ml 1400 ml Balance 710 ml 2326 ml Intake Oral 420 ml 700 ml IV Total 1040 ml 3026 ml Output Urine Total 750 ml 1400 ml # Bowel Movements 1 0 Vital Signs Date Time Temp Pulse Resp B/P Pulse Ox O2 Delivery O2 Flow Rate FiO2 01/06/17 10:00 78 01/06/17 08:00 98.2 76 21 137/80 97 01/06/17 08:00 76 01/06/17 06:00 77 01/06/17 04:00 98.6 87 12 131/71 97 01/06/17 04:00 87 01/06/17 02:00 81 01/06/17 00:00 91 01/06/17 00:00 99.6 91 22 143/94 98 01/05/17 22:00 78 01/05/17 20:58 100 21 01/05/17 20:00 98.9 78 17 115/68 99 01/05/17 20:00 78 01/05/17 18:00 72 01/05/17 16:00 83 01/05/17 16:00 98.1 83 21 105/60 99 01/05/17 14:00 110 01/05/17 12:00 98.7 90 18 121/68 95 01/05/17 12:00 90 (Lissette Padilla) -: 01/06/17 0459 01/06/17 0459 Imaging Last 72 hours Impressions Thyroid Ultrasound 01/04/17 0000 Signed Impressions: Service Date/Time: Wednesday, January 04, 2017 11:43 - CONCLUSION: Scattered small cystic areas in both lobes of thyroid. Nathaniel Porter MD FACR Renal Ultrasound 01/03/17 1218 Signed Impressions: Service Date/Time: Tuesday, January 03, 2017 12:35 - CONCLUSION: Normal examination except for slight increased echogenicity to both renal cortices suggesting mild chronic medical renal disease. Feliz Leung MD (Lissette Padilla. ONLINE MEDIA DIRECTOR) Physical Exam General Appearance: No Acute Distress, Comfortable, Malnourished (Lissette Padilla B. ONLINE MEDIA DIRECTOR) Eyes Eye Exam: Pupils Equal (Lissette Padilla B. ONLINE MEDIA DIRECTOR) Throat Throat Remarks poor dentition (Lissette Padilla B. ONLINE MEDIA DIRECTOR) Pulmonary Resp Exam: Clear Bilaterally, Breath Sounds Equal (Lissette Padilla B. ONLINE MEDIA DIRECTOR) Cardiology CV Exam: Regular, Normal Sinus Rhythm (Lissette Padilla B. ONLINE MEDIA DIRECTOR) Gastrointestinal/Abdomen GI Exam: Soft, Bowel Sounds Present GI Remarks slightly tender (Lissette Padilla B. ONLINE MEDIA DIRECTOR) Musculoskeletal MS Exam: Joints Intact, Normal Tone (Lissette Padilla B. ONLINE MEDIA DIRECTOR) Integumentary Skin Exam: Clear, Warm, Dry, Intact (Lissette Padilla B. ONLINE MEDIA DIRECTOR) Extremeties Extremities Exam: No Edema, Pedal Pulses Palpable (Lissette Padilla B. ONLINE MEDIA DIRECTOR) Neurologic Neuro Exam: Alert, Awake, Oriented, Speech Clear, Moving All Extremities ( Lissette Padilla B. ONLINE MEDIA DIRECTOR) Psychiatric Psych Exam: Appropriate Responses (Lissette Padilla. ONLINE MEDIA DIRECTOR) Assessment/Plan Discussed Condition With: Patient Assessment Summary: SHABANA/Acute Renal Failure, Dehydration Electrolyte Assessment: Hypokalemia Problem List: (1) Hypokalemia Plan: continue IV and PO correction with serial monitoring unknown etiology, this is chronic as she has been seen multiple admission for the same 24 hr urine for K is not high, no renal wasting 24 hr urine for mag in process (2) SHABANA (acute kidney injury) Plan: Improving with IVF, change to 1/4 NS at 50 cc/hr, oral intake adequate acidosis corrected K difficult to correct, see above discussion renal US negative she does have proteinuria, reports questionable diagnosis of SLE, ELLE pending she is non oliguric; aparicio in place avoid nephrotoxins, would prefer to wait unitl tomorrow for MRI with contrast renal panel in am (3) Metabolic acidosis Plan: corrected, off bicarb; monitor metabolic panel she reported vomiting which has resolved, typically does not cause acidosis; denies diarrhea since admission (4) Dehydration Plan: improving with IVF, continue and monitor response (Lissette Padilla B. ONLINE MEDIA DIRECTOR) Problem List: (1) Hypokalemia Plan: continue IV and PO correction with serial monitoring unknown etiology, this is chronic as she has been seen multiple admission for the same 24 hr urine for K is not high, no renal wasting 24 hr urine for mag in process (2) SHABANA (acute kidney injury) Plan: Improving with IVF, change to 1/4 NS at 50 cc/hr, oral intake adequate acidosis corrected K difficult to correct, see above discussion renal US negative she does have proteinuria, reports questionable diagnosis of SLE, ELLE pending she is non oliguric; aparicio in place avoid nephrotoxins, would prefer to wait unitl tomorrow for MRI with contrast renal panel in am (3) Metabolic acidosis Plan: corrected, off bicarb; monitor metabolic panel she reported vomiting which has resolved, typically does not cause acidosis; denies diarrhea since admission (4) Dehydration Plan: improving with IVF, continue and monitor response Plan patient was seen and examined. Renal function has improved. Hypokalemia persists. Continue replacement. Appears to have severe total body depletion of potassium. (Quirino Valenzuela MD) Lissette Padilla Jan 06, 2017 11:06 Quirino Valenzuela MD Jan 06, 2017 15:14
[2017-01-06] MEDS: SODIUM CHLORIDE 23.4% INJ 38.5 MEQ in WATER STERILE FOR INJ 1,000 ML IV SCH (13:17)
--- NOTE | 2017-01-06 14:28 | PD.CONS ---
HPI History of Present Illness This is a 41 year old patient with multiple on going GI complaints for over a year, who has had extensive workup by our service during past hospitalizations, who came to the ER for evaluation of worsening GI symptoms- nausea, vomiting, heartburn, diffuse abdominal pain, and alternating constipation and diarrhea, and hematochezia. Patient reports wt loss, hair loss, teeth loss, she was diagnosed with lupus, and gastroparesis, she has extensive hx of endometrioses , and female issues, she is lactating now, but she is not . She showed me multiple photos on her phone of clumps of hair falling out, blood in her stools. Labs revealed anemia, SHABANA, severe hypokalemia, CT of abd/pelvis (01/03/17 ) Normal examination. Dense stool throughout distended colon. She was previously evaluated with multiple tests. she had EGD/colonoscopy on (04/22/16) ---> gastritis, irregular z line,bx benign. very poor prep. colonoscopy on () showed colonic ulcer, bx acute colitis. She was seen at sometimes in August of last year and under went another EGD/colonoscopy for which I don't have the records. Past work up includes Enema w/Water Soluble (10/27/15)---> Limited therapeutic Gastrografin enema was performed. There is some extrinsic mass effect upon the proximal transverse colon of indeterminate etiology. Probable incomplete filling of the right colon due to significant patient discomfort during examination. Pelvis Ultrasound (10/24/15)---> Limited transabdominal exam. Transvaginal exam is somewhat limited as well however I don't see any obvious adnexal pathology. The uterus is empty with normal endometrium. S/P Colonoscopy (10/28/16) Multiple large non-bleeding ulcers were found in the sigmoid colon, near circumferential submucosal vs. external lesion was found at the hepatic flexure, scope passed beyond and could not advance the scope from formed fecal material. Pathology revealed sigmoid biopsy colonic mucosa with extensive acute ulceration, a trichrome stain is negative for amoebae. One fragment of intact colonic mucosa with acute inflammation of crypt epithelium and acute ulceration. EGD (11/04/16) revealed circumferential abnormal mucosa was found in the distal esophagus; the mucosa was erythematous, there was mild gastritis in the gastric antrum, multiple biopsies were performed, normal duodenal mucosa in the bulb and second portion of the duodenum, retroflexion was performed and was normal. Pathology revealed changes of chronic inflammatory bowel disease are not noted. Gastric antral mucosal biopsies with mild chronic active gastritis negative for intestinal metaplasia and dysplasia, negative for h. pylori. (Nicholas Phelan) PFSH Past Medical History Bipolar disorder Anxiety Atrial fibrillation Appendiceal cancer Endometriosis GERD Headache Kidney stones Hypertension Migraines Ulcerative colitis Question possible history of lupus Ectopic at age 17 Past Surgical History Multiple prior laparotomies Appendectomy Interstitial cystitis Partial salpingo-oophorectomy Drainage of oral abscess EGD/colonoscopy (Nicholas Phelan) Coded Allergies: Keflex (Verified Allergy, Severe, RASH,SWELLING, 01/03/17) Penicillin (Verified Allergy, Severe, RASH,SWELLING, 01/03/17) Reglan (Verified Allergy, Severe, DYSTONIC REACTION, 01/03/17) Seafood (Verified Allergy, Severe, SWELLING IN THROAT, SOB, 01/03/17) Toradol (Verified Allergy, Severe, RASH, 01/03/17) Compazine (Verified Allergy, Mild, DYSTONIC REACTION, 01/03/17) Phenergan (Verified Allergy, Mild, DYSTONIC REACTION, 01/03/17) Neurontin (Verified Adverse Reaction, Severe, SEIZURES, 01/03/17) *MDRO Multi-Drug Resistant Organism (Verified Adverse Reaction, Unknown, ) MRSA axilla/ breast 2009 MRSA PCR (nares) negative - 04/19/16 & 04/21/16 Cleared per Infection Control Medications Current Medications Medications (Trade) Dose Ordered Sig/Osito Route Start Time Stop Time Status Last Admin (NS Flush) 2 ml UNSCH PRN IV FLUSH 01/03/17 12:00 01/04/17 22:23 (NS Flush) 2 ml BID IV FLUSH 01/03/17 21:00 01/06/17 08:03 (Protonix Inj) 40 mg DAILY IV 01/04/17 09:00 01/06/17 08:03 (Zofran Inj) 4 mg Q6H PRN IV 01/03/17 12:00 (Heparin Inj) 5,000 units Q8H SQ 01/03/17 12:00 01/06/17 11:42 Miscellaneous Information 1 Q361D XX 01/03/17 12:00 (Chlorhexidine 2% Cloth) 3 pack Taper DAILY@04 TOP 01/04/17 04:00 12/31/17 03:59 01/06/17 03:13 Chlorhexidine Gluconate 3 pack 3 pack UNSCH PRN TOP 01/03/17 12:00 Metronidazole 100 ml @ 100 mls/hr Q6H IV 01/03/17 18:00 01/06/17 11:47 Aztreonam 500 mg/ Sodium Chloride 100 ml @ 200 mls/hr Q12H IV 01/03/17 21:00 01/06/17 08:40 Potassium Chloride 100 ml @ 50 mls/hr Q2H PRN IV 01/04/17 09:45 (KCl 20 Meq Premix Inj) 100 ml @ 50 mls/hr Q2H PRN IV 01/04/17 09:45 01/06/17 08:03 Potassium Chloride 40 meq 40 meq UNSCH PRN PO/TUBE 01/04/17 09:45 Potassium Chloride 100 ml @ 25 mls/hr UNSCH PRN IV 01/04/17 09:45 Potassium Chloride 100 ml @ 50 mls/hr Q2H PRN IV 01/04/17 09:45 01/04/17 10:34 (Magnesium Sulfate Inj/NS Inj) 100 ml @ 50 mls/hr UNSCH PRN IV 01/04/17 09:45 Magnesium Oxide 800 mg 800 mg UNSCH PRN PO 01/04/17 09:45 (Magnesium Sulfate Inj/NS Inj) 100 ml @ 50 mls/hr UNSCH PRN IV 01/04/17 09:45 Potassium Phosphate 2000 mg 2,000 mg Q4H PRN PO 01/04/17 09:45 (Sodium Phosphate Inj/NS 250 ml Inj) 250 ml @ 42 mls/hr UNSCH PRN IV 01/04/17 09:45 (KCl 40 Meq/30 ml Liq) 40 meq UNSCH PRN PO/TUBE 01/04/17 09:45 01/05/17 06:20 Potassium Phosphate 2000 mg 2,000 mg UNSCH PRN PO/TUBE 01/04/17 09:45 (Potassium Phosphate Inj/NS 250 ml Inj) 260 ml @ 42 mls/hr UNSCH PRN IV 01/04/17 09:45 01/06/17 08:41 (Synthroid) 25 mcg DAILY@0600 PO 01/04/17 11:00 01/06/17 06:15 (D50w (Vial) Inj) 25 ml UNSCH PRN IV PUSH 01/04/17 10:45 (Glucagon Inj) 1 mg UNSCH PRN OTHER 01/04/17 10:45 (NovoLIN R SUPPLEMENTAL SCALE) 1 Q4H SQ 01/04/17 11:00 01/06/17 11:42 (Morphine Inj) 1 mg Q4H PRN IV PUSH 01/04/17 11:00 01/06/17 08:45 Hydrocortisone Sodium Succinate 50 mg 50 mg Q6H IV PUSH 01/06/17 15:00 (Sodium Chloride 23.4% Inj/Sterile Water For Inj) 1,009.625 ml @ 50 mls/hr [id number] IV 01/06/17 12:00 01/06/17 13:17 Family History non contributory Social History Denies alcohol Marijuana use (Nicholas Phelan) Review of Systems Constitutional: COMPLAINS OF: Fatigue, Weight loss, DENIES: Chills Endocrine: DENIES: Polyuria Eyes: DENIES: Double Vision Ears, nose, mouth, throat: DENIES: Hoarseness Respiratory: DENIES: Shortness of breath Cardiovascular: DENIES: Lower Extremity Edema Gastrointestinal: COMPLAINS OF: Abdominal pain, Bloody stools, Constipation, Nausea, Vomiting, Difficulty Swallowing, Anorexia, Heartburn, DENIES: Black stools, Diarrhea, Odynophagia, Swelling of Abdomen, Hematemesis Genitourinary: DENIES: Hematuria Musculoskeletal: DENIES: Neck pain Integumentary: DENIES: Jaundice Hematologic/lymphatic: DENIES: Bruising Immunologic/allergic: DENIES: Eczema Neurologic: DENIES: Abnormal gait Psychiatric: DENIES: Anxiety (Nicholas Phelan) GI Exam Vitals I&O Vital Signs Date Time Temp Pulse Resp B/P Pulse Ox O2 Delivery O2 Flow Rate FiO2 01/06/17 12:00 98.6 84 28 122/81 98 01/06/17 12:00 84 01/06/17 11:50 93 Nasal Cannula 2.00 01/06/17 10:00 78 01/06/17 08:00 98.2 76 21 137/80 97 01/06/17 08:00 76 01/06/17 06:00 77 01/06/17 04:00 98.6 87 12 131/71 97 01/06/17 04:00 87 01/06/17 02:00 81 01/06/17 00:00 91 01/06/17 00:00 99.6 91 22 143/94 98 01/05/17 22:00 78 01/05/17 20:58 100 21 01/05/17 20:00 98.9 78 17 115/68 99 01/05/17 20:00 78 01/05/17 18:00 72 01/05/17 16:00 83 01/05/17 16:00 98.1 83 21 105/60 99 01/05/17 14:00 110 I/O 01/05/17 01/05/17 01/05/17 01/06/17 01/06/17 01/06/17 07:00 15:00 23:00 07:00 15:00 23:00 Intake Total 795 ml 1460 ml 2244 ml 1482 ml Output Total 700 ml 750 ml 700 ml 700 ml Balance 95 ml 710 ml 1544 ml 782 ml Intake Oral 340 ml 420 ml 300 ml 400 ml IV Total 455 ml 1040 ml 1944 ml 1082 ml Output Urine Total 700 ml 750 ml 700 ml 700 ml # Bowel Movements 1 1 0 Imaging Last Impressions Thyroid Ultrasound 01/04/17 0000 Signed Impressions: Service Date/Time: Wednesday, January 04, 2017 11:43 - CONCLUSION: Scattered small cystic areas in both lobes of thyroid. Nathaniel Porter MD FACR Renal Ultrasound 01/03/17 1218 Signed Impressions: Service Date/Time: Tuesday, January 03, 2017 12:35 - CONCLUSION: Normal examination except for slight increased echogenicity to both renal cortices suggesting mild chronic medical renal disease. Feliz Leung MD Chest X-Ray 01/03/17 0000 Signed Impressions: Service Date/Time: Tuesday, January 03, 2017 09:34 - CONCLUSION: Normal examination. Feliz Leung MD Abdomen/Pelvis CT 01/03/17 0000 Signed Impressions: Service Date/Time: Tuesday, January 03, 2017 09:49 - CONCLUSION: Normal examination. Dense stool throughout distended colon Feliz Leung MD Laboratory Test 3/2/17 01/05/17 01/06/17 01/06/17 16:32 22:28 04:59 09:00 Potassium Level 2.6 MEQ/L 2.9 MEQ/L 2.6 MEQ/L Phosphorus Level 0.3 MG/DL 1.4 MG/DL White Blood Count 18.6 TH/MM3 Red Blood Count 3.05 MIL/MM3 Hemoglobin 8.6 GM/DL Hematocrit 26.0 % Mean Corpuscular Volume 85.2 FL Mean Corpuscular Hemoglobin 28.3 PG Mean Corpuscular Hemoglobin 33.2 % Concent Red Cell Distribution Width 15.6 % Platelet Count 287 TH/MM3 Mean Platelet Volume 8.3 FL Neutrophils (%) (Auto) 92.3 % Lymphocytes (%) (Auto) 3.8 % Monocytes (%) (Auto) 3.7 % Eosinophils (%) (Auto) 0.0 % Basophils (%) (Auto) 0.2 % Neutrophils # (Auto) 17.1 TH/MM3 Lymphocytes # (Auto) 0.7 TH/MM3 Monocytes # (Auto) 0.7 TH/MM3 Eosinophils # (Auto) 0.0 TH/MM3 Basophils # (Auto) 0.0 TH/MM3 CBC Comment DIFF FINAL Differential Comment Sodium Level 146 MEQ/L Chloride Level 112 MEQ/L Carbon Dioxide Level 21.2 MEQ/L Anion Gap 13 MEQ/L Blood Urea Nitrogen 22 MG/DL Creatinine 1.19 MG/DL Estimat Glomerular Filtration 50 ML/MIN Rate Random Glucose 162 MG/DL Calcium Level 8.0 MG/DL Magnesium Level 2.0 MG/DL Lipase 338 U/L Urine Total Volume 24 Hours 1450 ML Urine Potassium 24 Hour 55 MEQ/24HR Date/Time Procedure Status Source Growth 01/03/17 10:20 Aerobic Blood Culture - Preliminary Resulted Blood Peripheral NO GROWTH IN 3 DAYS 01/03/17 10:20 Anaerobic Blood Culture - Preliminary Resulted Blood Peripheral NO GROWTH IN 3 DAYS Physical Examination HEENT: Pupils round and reactive to light; normocephalic; atraumatic; no jaundice. Throat is clear. NECK: Neck is supple, no JVD, no lymphadenopathy. CHEST: Chest is clear to auscultation and percussion. CARDIAC: Regular rate and rhythm with no murmur gallop or rubs. ABDOMEN: Soft, diffused abdomen pain, nontender; no hepatosplenomegaly; bowel sounds are present in all four quadrants. EXTREMITIES: No clubbing, cyanosis, or edema. SKIN: Normal; no rash; no jaundice. 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 (Nicholas Phelan) Assessment and Plan Plan - Abdominal pain. Abdomen/Pelvis CT (01/03/17)---> CT Normal examination. Dense stool throughout distended colon Her pain is a constant sharp diffuse abdominal pain aggravated by movement, food, breathing, and lying flat. S/P EGD/Colonoscopy (04/22/16)---> gastritis, irregular z line, very poor prep. colonoscopy on (04/25/16) showed colonic ulcer, bx acute colitis. She was seen at [facility] in August of last year and under went another EGD/colonoscopy for which I don't have the records. - Anemia- hgb of 8.8, states bleeding with every BM, no bleeding since arrival per nurse - Hematochezia? ulcerative colitis, not on any medications - N/V, Severe GERD/? gastroparesis. States severe daily heartburn despite Pepcid AC and Tagamet at home. EGD as above Alternating constipation and diarrhea, but states she usually has one formed stool per day. per nurse, she had BM yesterday, no bleeding reported - Abn. Wt. Loss with 100 ib weight loss since November of last year. CT as above. - acute kidney injury nephrology on the case - Hair loss, poor dentition. - Severe electrolyte abnormalities/hypokalemia. Per primary - Lupus, bipolar disorder per attending PLAN: - ELIZABETH - Cont. Protonix - Cont. abx - Carafate - obtain records from - Monitor hh - Transfuse as needed - Notify GI for active bleed - EGD/colonoscopy on Monday - Supportive care - Further recommendations to follow based on results of above - Pt seen and examined by Dr. harvey and myself and this note is written on his behalf (Nicholas Phelan) Physician Comments Patient seen and examined Agree with above Continue with current supportive care Monitor labs Plan for an EGD and a colonoscopy on Monday (Erik Harvey MD) Nicholas Phelan Jan 06, 2017 14:28 Erik Harvey MD Jan 06, 2017 23:46
[2017-01-06] MEDS: SUCRALFATE 1 GM/10 ML CUP PO SCH ×2 (15:08→21:13)
[2017-01-06] MEDS ORDERED: ZOLPIDEM TARTRATE 5 MG TAB PO ONE (21:00)
[2017-01-06 22:07] LABS: POTASSIUM 2.9 MEQ/L (3.5-5.1)
[2017-01-06 23:51] LABS: THYROGLOB ABS LESS THAN 1 IU/mL (< OR = 1)
[2017-01-07] VITALS (13 sets, daily range): BP systolic 111–160; BP diastolic 66–95; PULSE 67–89; RESP 12–27; TEMP 97.9–99.3; O2SAT 94–100
[2017-01-07] MEDS: INSULIN NovoLIN REGULAR SUPPLEMENTAL SCALE SQ SCH ×6 (03:00→23:04)
[2017-01-07] MEDS: MORPHINE SULFATE 4 MG/ML INJ IV PUSH PRN ×5 (03:30→22:52)
[2017-01-07] MEDS: HEPARIN SODIUM - SQ 10,000 UNITS/ML VIAL SQ SCH ×3 (03:30→20:56)
[2017-01-07] MEDS: HYDROCORTISONE SOD SUCCINATE 100 MG VIAL IV PUSH SCH ×4 (03:31→20:58)
[2017-01-07] MEDS: CHLORHEXIDINE GLUCONATE 2 % 1 PACK (2 CLOTHS) TOP SCH (03:32)
[2017-01-07] MEDS: POTASSIUM CHLOR 20 MEQ PREMIX 100 ML IV PRN ×4 (03:33→18:23)
[2017-01-07 05:01] LABS: AUTOMATED NEUTROPHIL # 16.2 TH/MM3 (1.8-7.7); BASOPHIL # 0.1 TH/MM3 (0-0.2); BASOPHIL % 0.4 % (0.0-2.0); EOSINOPHIL % 0.1 % (0.0-4.0); HEMATOCRIT 28.6 % (35.0-46.0); LYMPH % 7.6 % (9.0-44.0); LYMPHOCYTE # 1.4 TH/MM3 (1.0-4.8); MEAN CELL VOLUME 87.7 FL (80.0-100.0); MEAN CORPUSCULAR HEMOGLOBIN 28.5 PG (27.0-34.0); MEAN CORPUSCULAR HGB CONC 32.5 % (32.0-36.0); MONO % 4.5 % (0.0-8.0); NEUT % 87.4 % (16.0-70.0); PLATELET COUNT 291 TH/MM3 (150-450); RED BLOOD COUNT 3.26 MIL/MM3 (4.00-5.30); RED CELL DISTRIBUTION WIDTH 15.8 % (11.6-17.2); WHITE BLOOD COUNT 18.6 TH/MM3 (4.0-11.0)
[2017-01-07 05:02] LABS: BICARBONATE 21.3 MEQ/L (21.0-32.0); MAGNESIUM 1.6 MG/DL (1.5-2.5)
[2017-01-07 05:12] LABS: HEMO FLAGS AUTO DIFF
[2017-01-07] MEDS: LEVOTHYROXINE SODIUM 25 MCG TAB PO SCH (05:57)
[2017-01-07] MEDS: metroNIDAZOLE 500 MG INJ 100 ML IV SCH ×4 (05:57→22:56)
[2017-01-07] MEDS: SUCRALFATE 1 GM/10 ML CUP PO SCH ×4 (05:59→20:57)
[2017-01-07 06:53] LABS: METAMYELOCYTES 1 % (0-1); MYELOCYTES 1 % (0-0); NEUTROPHIL # MANUAL DIFF 17.5 TH/MM3 (1.8-7.7); OVALOCYTES 1+ (NORMAL); POLYS (SEG NEUTROPHILS) 92 % (16-70); WBC DIFF SAMPLE 100
[2017-01-07 06:54] LABS: PLATELET ESTIMATE SMEAR NORMAL (NORMAL); PLATELET MORPHOLOGY NORMAL (NORMAL); SCAN/DIFF FINAL DIFF MANUAL
[2017-01-07] MEDS: SODIUM CHLORIDE 23.4% INJ 38.5 MEQ in WATER STERILE FOR INJ 1,000 ML IV SCH (08:17)
[2017-01-07] MEDS: PANTOPRAZOLE SODIUM 40 MG VIAL IV SCH (08:18)
[2017-01-07] MEDS: SODIUM CHLORIDE 0.9% FLUSH 5 ML FLUSH IV FLUSH SCH ×2 (08:18→20:58)
[2017-01-07] MEDS: AZTREONAM INJ 500 MG in SODIUM CHLORIDE 0.9% INJ 100 ML IV SCH ×2 (08:18→20:55)
--- NOTE | 2017-01-07 10:23 | HHI.CCPN ---
Subjective Remarks/Hospital Course 41yF with a fairly recent history of multiple ICU admissions for severe hypokalemia. Her symptoms she states started back in July or August of last year where she noticed hair loss, weight loss, fatigue, nausea, vomiting, diarrhea. She has now had over 100 pounds of weight loss since last August. She showed me pictures of large clumps of hair that she is lost over this time period. She states that she now carries diagnoses of gastroparesis, ulcerative colitis, lupus, bipolar disorder. She states that she thinks all these diagnoses are wrong, but she has not found anyone that is been able to find an accurate diagnosis. She also states that her teeth have been following out over the same time period. She states she has numbness and tingling, more so in her hands and feet. She states she has intermittent chills, but no fever. She also endorses that more recently over the last few weeks she has started to lactate. She is not , and his pump and section active for more than a year. She denies breast pain. She denies any blood in her stool or hematemesis. She does endorse significant fatigue. She denies chest pain or difficulty breathing. On today's exam, she endorses a very vague crampy pain all over from her chest down to her abdomen, pelvis, back area. She does not know if anything aggravates or relieves the pain. Is very difficult to get a good history because the patient goes off on tangents frequently is hard to tie down to a clear answer to my questions. In emergency department, she was found to have a white count of 22,000 with a left shift, a serum potassium of 1.9, serum sodium 133. Critical care medicine has been consulted to evaluate and manage her severe life -threatening hypokalemia. 3 Patient is lying in bed in NAD. Afebrile. K level 1.5 this morning. 3/2 No acute events overnight. Awake and alert. K 2.2 today 01/06 Patient is lying in bed in NAD. K 2.6 this morning. 3/4 No acute events overnight. Afebrile. Objective Vital Signs Date Time Temp Pulse Resp B/P Pulse Ox O2 Delivery O2 Flow Rate FiO2 01/07/17 10:00 76 01/07/17 08:56 100 01/07/17 08:00 99.0 25 156/71 01/06/17 19:00 Nasal Cannula 2.00 01/05/17 20:58 21 Intake and Output 01/06/17 01/06/17 01/07/17 08:00 16:00 00:00 Intake Total 1482 ml 1230 ml 2047 ml Output Total 700 ml 700 ml 1600 ml Balance 782 ml 530 ml 447 ml Result Diagram: 01/07/17 0416 01/07/17 0415 Other Results Laboratory Tests Test 01/06/17 01/07/17 01/07/17 20:39 04:15 04:16 Potassium Level 2.9 MEQ/L 3.0 MEQ/L Phosphorus Level 1.8 MG/DL 1.6 MG/DL Sodium Level 145 MEQ/L Chloride Level 113 MEQ/L Carbon Dioxide Level 21.3 MEQ/L Anion Gap 11 MEQ/L Blood Urea Nitrogen 17 MG/DL Creatinine 0.87 MG/DL Estimat Glomerular Filtration 72 ML/MIN Rate Random Glucose 124 MG/DL Calcium Level 8.0 MG/DL Magnesium Level 1.6 MG/DL White Blood Count 18.6 TH/MM3 Red Blood Count 3.26 MIL/MM3 Hemoglobin 9.3 GM/DL Hematocrit 28.6 % Mean Corpuscular Volume 87.7 FL Mean Corpuscular Hemoglobin 28.5 PG Mean Corpuscular Hemoglobin 32.5 % Concent Red Cell Distribution Width 15.8 % Platelet Count 291 TH/MM3 Mean Platelet Volume 8.1 FL Neutrophils (%) (Auto) 87.4 % Lymphocytes (%) (Auto) 7.6 % Monocytes (%) (Auto) 4.5 % Eosinophils (%) (Auto) 0.1 % Basophils (%) (Auto) 0.4 % Neutrophils # (Auto) 16.2 TH/MM3 Lymphocytes # (Auto) 1.4 TH/MM3 Monocytes # (Auto) 0.8 TH/MM3 Eosinophils # (Auto) 0.0 TH/MM3 Basophils # (Auto) 0.1 TH/MM3 CBC Comment AUTO DIFF Differential Total Cells 100 Counted Neutrophils % (Manual) 92 % Lymphocytes % 6 % Neutrophils # (Manual) 17.5 TH/MM3 Metamyelocytes 1 % Myelocytes 1 % Differential Comment FINAL DIFF MANUAL Platelet Estimate NORMAL Platelet Morphology Comment NORMAL Ovalocytes 1+ Imaging Last Impressions Thyroid Ultrasound 01/04/17 0000 Signed Impressions: Service Date/Time: Wednesday, January 04, 2017 11:43 - CONCLUSION: Scattered small cystic areas in both lobes of thyroid. Nathaniel Porter MD FACR Renal Ultrasound 01/03/17 1218 Signed Impressions: Service Date/Time: Tuesday, January 03, 2017 12:35 - CONCLUSION: Normal examination except for slight increased echogenicity to both renal cortices suggesting mild chronic medical renal disease. Feliz Leung MD Chest X-Ray 01/03/17 0000 Signed Impressions: Service Date/Time: Tuesday, January 03, 2017 09:34 - CONCLUSION: Normal examination. Feliz Leung MD Abdomen/Pelvis CT 01/03/17 0000 Signed Impressions: Service Date/Time: Tuesday, January 03, 2017 09:49 - CONCLUSION: Normal examination. Dense stool throughout distended colon Feliz Leung MD Objective Remarks GENERAL: Patient is lying in bed in NAD HEENT: Normocephalic. Atraumatic. Pupils equal, round, reactive, conjugate. NECK: Neck is midline. There is no JVD. CHEST: Equal chest rise. Clear to auscultation bilaterally. CARDIOVASCULAR: Heart rate, regular rhythm. S1 and S2 without appreciable murmurs. ABDOMEN: Soft, mild tenderness on palpitation, no guarding or rebound. MUSCULOSKELETAL: Distal pulses 2+ no peripheral edema. NEUROLOGICAL: RASS 0. Subjectively she has decreased sensation to fine touch in a stocking distribution over her dorsum hands and feet. Otherwise grossly neuro intact. A/P Assessment and Plan Assessment: 41yF with multiple complaints of fatigue, nausea, vomiting, and weakness, now found to have acute kidney injury and severe life-threatening hypokalemia. 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 8)Hx Bipolar disorder and Anxiety Plan: Neuro: Awake and alert. Psych eval ( Anxiety, hx Bipolar) MRI brain no acute abnormalities, no pituitary masses Pulm: Oxygen PRN keep sat >92% CV: Monitor HR and BP keep MAP>65mmHg. Lactic acid 1.1 GI: On PO diet , GI is following for EGD and colonoscopy on Tuesday 01/09 CT abd/pelvis: No acute findings : Monitor renal function, electrolytes replacement per protocol. Will need K, phos replacement today Renal function improving , on 4NS@50ml/hr Renal- Dr. Valenzuela ID: Monitor for signs of infections ( Fever, WBC) follow up on BC 01/03: NGTD. Continue with Aztreonam and Flagyl for now. Heme: Monitor CBC Endo: Patient with low TSH: 0.32, low FT4 0.5..? Euthyroid sick syndrome. US thyroid: Small cystic areas in both lobs of thyroid MRI brain showed no acute abnormalities, no pituitary masses Thyroid peroxidase ab, ELLE negative Taper steroids- hydrocortisone 50mg IV Q6 ( ? Borderline adrenal suppression) SSI with accuchecks SCDs, SQ Heparin for DVT prophylaxis Protonix for GI prophylaxis Will sign off and transfer care to [facility] Level 2 Israel Thompson MD Jan 07, 2017 10:23
[2017-01-07] MEDS ORDERED: GADODIAMIDE PF 287 MG/ML 10 ML VIAL (for RAD MRI) IV ONE (11:18)
--- NOTE | 2017-01-07 11:58 | RADRPT ---
EXAM DATE/TIME: 01/07/2017 10:57 [facility] COMPARISON: No previous studies available for comparison. INDICATIONS : Hypothyroidism. CONTRAST: 10 cc Omniscan (gadodiamide) IV MEDICAL HISTORY : Hypertension. Carcinoma appendix. Gastroenteritis. Endometriosis. SURGICAL HISTORY : Appendectomy. ENCOUNTER: Subsequent ACUITY: 3 day PAIN SCORE: 0/10 LOCATION: head. TECHNIQUE: Multiplanar, multisequence MRI of the brain was performed both prior to and following the administrat ion of paramagnetic contrast. FINDINGS: CEREBRUM: The ventricles are normal for age. No evidence of midline shift, mass lesion, hemorrhage or acute in farction. No extraaxial fluid collections are seen. The pituitary gland and suprasellar cistern are normal in configuration. WHITE MATTER: No significant signal abnormalities are seen in the white matter. POSTERIOR FOSSA: The cerebellum and brainstem are intact. The 4th ventricle is midline. The cerebellopontine angle is unremarkable. The cerebellar tonsils are normal in position. DIFFUSION IMAGING: No focal areas of restricted diffusion are seen. No evidence of acute infarction. EXTRACRANIAL: The visualized portions of the orbits and paranasal sinuses are unremarkable. POST-CONTRAST: No abnormal areas of parenchymal or dural enhancement. No evidence of blood-brain barrier breakdown. CONCLUSION: No intracranial abnormality is identified. No pituitary gland mass is seen. Brian Zhou MD on January 07, 2017 at 11:54 Board Certified Radiologist. This report was verified electronically.
--- NOTE | 2017-01-07 12:42 | HHI.GIFU ---
Subjective Remarks C/O ongoing abdominal pain in lower abdomen along with esophageal pain. She reports ongoing weight loss, hair loss, losing teeth. She had a large hard bowel movement with small amount of blood. States she had to "push my rectum back in today." (Oneida Fraga) Objective Vitals I&O Vital Signs Date Time Temp Pulse Resp B/P Pulse Ox O2 Delivery O2 Flow Rate FiO2 01/07/17 10:00 76 01/07/17 08:56 100 01/07/17 08:00 67 01/07/17 08:00 99.0 89 25 156/71 99 01/07/17 06:00 79 01/07/17 04:00 85 01/07/17 04:00 99.1 85 12 144/95 100 01/07/17 02:00 71 01/07/17 00:00 99.2 73 15 111/66 98 01/07/17 00:00 73 01/06/17 22:00 90 01/06/17 20:00 99.6 83 19 137/85 99 01/06/17 20:00 83 01/06/17 19:00 97 Nasal Cannula 2.00 01/06/17 18:00 81 01/06/17 16:00 84 01/06/17 16:00 98.2 84 11 123/80 98 01/06/17 14:00 103 I/O 01/06/17 01/06/17 01/06/17 01/07/17 01/07/17 01/07/17 07:00 15:00 23:00 07:00 15:00 23:00 Intake Total 1482 ml 1230 ml 2047 ml 1047 ml Output Total 700 ml 700 ml 1600 ml 1400 ml Balance 782 ml 530 ml 447 ml -353 ml Intake Oral 400 ml 360 ml 250 ml 200 ml IV Total 1082 ml 870 ml 1797 ml 847 ml Output Urine Total 700 ml 700 ml 1600 ml 1400 ml # Bowel Movements 1 Laboratory Laboratory Tests Test 01/06/17 01/07/17 01/07/17 20:39 04:15 04:16 Potassium Level 2.9 3.0 Phosphorus Level 1.8 1.6 Sodium Level 145 Chloride Level 113 Carbon Dioxide Level 21.3 Anion Gap 11 Blood Urea Nitrogen 17 Creatinine 0.87 Estimat Glomerular Filtration 72 Rate Random Glucose 124 Calcium Level 8.0 Magnesium Level 1.6 White Blood Count 18.6 Red Blood Count 3.26 Hemoglobin 9.3 Hematocrit 28.6 Mean Corpuscular Volume 87.7 Mean Corpuscular Hemoglobin 28.5 Mean Corpuscular Hemoglobin 32.5 Concent Red Cell Distribution Width 15.8 Platelet Count 291 Mean Platelet Volume 8.1 Neutrophils (%) (Auto) 87.4 Lymphocytes (%) (Auto) 7.6 Monocytes (%) (Auto) 4.5 Eosinophils (%) (Auto) 0.1 Basophils (%) (Auto) 0.4 Neutrophils # (Auto) 16.2 Lymphocytes # (Auto) 1.4 Monocytes # (Auto) 0.8 Eosinophils # (Auto) 0.0 Basophils # (Auto) 0.1 CBC Comment AUTO DIFF Differential Total Cells 100 Counted Neutrophils % (Manual) 92 Lymphocytes % 6 Neutrophils # (Manual) 17.5 Metamyelocytes 1 Myelocytes 1 Differential Comment FINAL DIFF MANUAL Platelet Estimate NORMAL Platelet Morphology Comment NORMAL Ovalocytes 1+ Date/Time Procedure Status Source Growth 01/03/17 10:20 Aerobic Blood Culture - Preliminary Resulted Blood Peripheral NO GROWTH IN 4 DAYS 01/03/17 10:20 Anaerobic Blood Culture - Preliminary Resulted Blood Peripheral NO GROWTH IN 4 DAYS Imaging Last Impressions Brain MRI 01/07/17 1032 Signed Impressions: Service Date/Time: Saturday, January 07, 2017 10:57 - CONCLUSION: No intracranial abnormality is identified. No pituitary gland mass is seen. Brian Zhou MD Thyroid Ultrasound 01/04/17 0000 Signed Impressions: Service Date/Time: Wednesday, January 04, 2017 11:43 - CONCLUSION: Scattered small cystic areas in both lobes of thyroid. Nathaniel Porter MD FACR Renal Ultrasound 01/03/17 1218 Signed Impressions: Service Date/Time: Tuesday, January 03, 2017 12:35 - CONCLUSION: Normal examination except for slight increased echogenicity to both renal cortices suggesting mild chronic medical renal disease. Feliz Leung MD Chest X-Ray 01/03/17 0000 Signed Impressions: Service Date/Time: Tuesday, January 03, 2017 09:34 - CONCLUSION: Normal examination. Feliz Leung MD Abdomen/Pelvis CT 01/03/17 0000 Signed Impressions: Service Date/Time: Keisha, January 03, 2017 09:49 - CONCLUSION: Normal examination. Dense stool throughout distended colon Feliz Leung MD Physical Exam HEENT: Normocephalic; atraumatic; no jaundice. CHEST: Chest is clear to auscultation and percussion. CARDIAC: RRR ABDOMEN: Soft, nondistended, moderate lower abdominal tenderness; no hepatosplenomegaly; bowel sounds are present in all four quadrants. EXTREMITIES: No clubbing, cyanosis, or edema. SKIN: Normal; no rash; no jaundice. VICE PRESIDENT RISK MANAGEMENT: No focal deficits; alert and oriented times three. (Oneida Fraga) Assessment and Plan Plan ASSESSMENT: - Abdominal pain. Abdomen/Pelvis CT (01/03/17)---> CT Normal examination. Dense stool throughout distended colon. S/P EGD/Colonoscopy (04/22/16)---> gastritis, irregular z line, very poor prep. Colonoscopy on (04/25/16) showed colonic ulcer, bx acute colitis. She was seen at sometimes in August of last year and under went another EGD/colonoscopy for which I don't have the records. Plan will be for repeat EGD/Colonoscopy on Monday. - Anemia. Had some red blood with large hard stool today. 9.3/28.6. - N/V, Severe GERD/? gastroparesis. States severe daily heartburn despite Pepcid AC and Tagamet at home. EGD as above - Alternating constipation and diarrhea, but states she usually has one formed stool per day. - Abn. Wt. Loss with 100 lb weight loss since November of last year. CT as above. - Acute kidney injury nephrology on the case - Hair loss, poor dentition, . MRI negative for pituitary mass. - Severe electrolyte abnormalities/hypokalemia. Per primary - Lupus, bipolar disorder per attending PLAN: - Plan for egd/colonoscopy on Monday - ELIZABETH today - Clear liquids in am - Golytely prep tomorrow - Hold heparin after MN - Cont. Protonix - Cont. Carafate - Monitor hh - Transfuse as needed - Notify GI for active bleed - Supportive care - Further recommendations to follow based on results of above - Pt seen and examined by Dr. Espinosa and myself and this note is written on his behalf (Oneida Fraga) Physician Comments Patient seen and examined Agree with above Continue with current supportive care Monitor labs EGD colon On Monday (Erik Espinosa MD) Oneida Fraga Jan 07, 2017 12:41 Erik Espinosa MD Jan 07, 2017 14:21
--- NOTE | 2017-01-07 16:01 | PD.CONS ---
Provisional Diagnosis Admission Date Jan 03, 2017 at 10:33 [place] I. Hypomania F 30.8 History of Present Illness Service Psychiatry Consult Requested By Attending Jhonny Reason for Consult Assessment Primary Care Physician No Primary Care Physician HPI Patient is a portal white female admitted metabolic issues and hypo-kalemia. Asked to see related to possible mood disorder. Patient seen in her room with nurse present throughout session patient calm cooperative though with rapid pressured speech. Some somatizations some scattered this with her responses. When asked what mental in the illness she is somewhat vague and reluctant to give details showing a significant denial of any possible mental health history. Rationalizing it with her various metabolic problems. She does deny any prior psychiatric medications or hospitalizations or contacts. She denies suicidality homicidality voices or visions. Alcohol or drug use. She states she is living with americo and her 9-year-old son. When commenting on her speech and pressured speech suggesting perhaps some mood disorder she became somewhat irritable with me. In any event I do not see any criteria for recommendation of a mood stabilizer at this time. She may be hypomanic perhaps some response for rest metabolic issues. Thus at this time I do not have any specific recommendations for medications. As okay by psychiatry for to be discharged when she medically clear and stable to follow up with her PCP or other recommendations per the medicine service thanks for consult I will sign off the present time Review of Systems Other Please see med surge assessments Past Family Social History Coded Allergies: Keflex (Verified Allergy, Severe, RASH,SWELLING, 01/03/17) Penicillin (Verified Allergy, Severe, RASH,SWELLING, 01/03/17) Reglan (Verified Allergy, Severe, DYSTONIC REACTION, 01/03/17) Seafood (Verified Allergy, Severe, SWELLING IN THROAT, SOB, 01/03/17) Toradol (Verified Allergy, Severe, RASH, 01/03/17) Compazine (Verified Allergy, Mild, DYSTONIC REACTION, 01/03/17) Phenergan (Verified Allergy, Mild, DYSTONIC REACTION, 01/03/17) Neurontin (Verified Adverse Reaction, Severe, SEIZURES, 01/03/17) *MDRO Multi-Drug Resistant Organism (Verified Adverse Reaction, Unknown, ) MRSA axilla/ breast 2009 MRSA PCR (nares) negative - 04/19/16 & 04/21/16 Cleared per Infection Control Past Medical History Please see med surge assessments Reported Medications Diphenhydramine (Benadryl Allergy)25 Mg Tab25 Mg PO DAILY PRN (ALLERGIES) Ref 0 01/03/17 Magnesium Citrate 100 Mg [id number] Mg PO HS Ref 0 01/03/17 Potassium 99 Mg Tab99 Mg PO HS 01/03/17 Cholecalciferol (Vitamin D3)10,000 Unit Cap20,000 Units PO Q3D #1 BOTTLE Ref 0 01/03/17 Ibuprofen (Advil)200 Mg [id number] Mg PO QID PRN Ref 0 01/03/17 Discontinued Scripts Ibuprofen 800 Mg Wfw422 Mg PO Q6H PRN (pain) #30 TAB Prov:Clayton Gill MD 04/28/16 Potassium Chloride (Kcl 20 Meq Tab)20 Meq Tabcr40 Meq PO DAILY 30 Days Ref 3 Prov:Clayton Gill MD 04/28/16 Clonazepam (Klonopin)0.5 Mg Tab0.5 Mg PO Q12H PRN (ANXIETY) #30 TAB Prov:Clayton Gill MD 04/28/16 Magnesium Oxide (Mag-Ox 400 Mg Tab)400 Mg Sil338 Mg PO Q12HR #20 TAB Prov:Clayton Gill MD 11/07/15 Pantoprazole Sodium (Protonix)40 Mg Tabdr40 Mg PO BID 31 Days Prov:Clayton Gill MD 11/07/15 Sucralfate (Carafate 1 Gm/10 Ml Udc)1 Gm/10 Ml Susp1 Gm PO ACHS 10 Days Prov:Clayton Gill MD 11/07/15 Clonazepam (Klonopin)0.5 Mg Tab0.5 Mg PO Q12H PRN (ANXIETY) #20 TAB Prov:Clayton Gill MD 11/07/15 Calcium Carbonate (Oscal 500)500 Mg [id number] Mg PO Q12HR 31 Days Prov:Clayton Gill MD 11/07/15 Potassium Chloride Microencaps (K-Dur)20 Meq Tabcr40 Meq PO DAILY 30 Days Prov:Conner Mejia MD 07/23/15 Current Medications Medications (Trade) Dose Ordered Sig/Osito Route Start Time Stop Time Status Last Admin (NS Flush) 2 ml UNSCH PRN IV FLUSH 01/03/17 12:00 01/04/17 22:23 (NS Flush) 2 ml BID IV FLUSH 01/03/17 21:00 01/07/17 08:18 (Protonix Inj) 40 mg DAILY IV 01/04/17 09:00 01/07/17 08:18 (Zofran Inj) 4 mg Q6H PRN IV 01/03/17 12:00 (Heparin Inj) 5,000 units Q8H SQ 01/03/17 12:00 Future Hold 01/07/17 12:21 Miscellaneous Information 1 Q361D XX 01/03/17 12:00 (Chlorhexidine 2% Cloth) 3 pack Taper DAILY@04 TOP 01/04/17 04:00 12/31/17 03:59 01/07/17 03:32 Chlorhexidine Gluconate 3 pack 3 pack UNSCH PRN TOP 01/03/17 12:00 Metronidazole 100 ml @ 100 mls/hr Q6H IV 01/03/17 18:00 01/07/17 12:22 Aztreonam 500 mg/ Sodium Chloride 100 ml @ 200 mls/hr Q12H IV 01/03/17 21:00 01/07/17 08:18 Potassium Chloride 100 ml @ 50 mls/hr Q2H PRN IV 01/04/17 09:45 (KCl 20 Meq Premix Inj) 100 ml @ 50 mls/hr Q2H PRN IV 01/04/17 09:45 01/07/17 14:21 Potassium Chloride 40 meq 40 meq UNSCH PRN PO/TUBE 01/04/17 09:45 Potassium Chloride 100 ml @ 25 mls/hr UNSCH PRN IV 01/04/17 09:45 Potassium Chloride 100 ml @ 50 mls/hr Q2H PRN IV 01/04/17 09:45 01/04/17 10:34 (Magnesium Sulfate Inj/NS Inj) 100 ml @ 50 mls/hr UNSCH PRN IV 01/04/17 09:45 Magnesium Oxide 800 mg 800 mg UNSCH PRN PO 01/04/17 09:45 (Magnesium Sulfate Inj/NS Inj) 100 ml @ 50 mls/hr UNSCH PRN IV 01/04/17 09:45 Potassium Phosphate 2000 mg 2,000 mg Q4H PRN PO 01/04/17 09:45 (Sodium Phosphate Inj/NS 250 ml Inj) 250 ml @ 42 mls/hr UNSCH PRN IV 01/04/17 09:45 (KCl 40 Meq/30 ml Liq) 40 meq UNSCH PRN PO/TUBE 01/04/17 09:45 01/05/17 06:20 Potassium Phosphate 2000 mg 2,000 mg UNSCH PRN PO/TUBE 01/04/17 09:45 (Potassium Phosphate Inj/NS 250 ml Inj) 260 ml @ 42 mls/hr UNSCH PRN IV 01/04/17 09:45 01/06/17 08:41 (D50w (Vial) Inj) 25 ml UNSCH PRN IV PUSH 01/04/17 10:45 (Glucagon Inj) 1 mg UNSCH PRN OTHER 01/04/17 10:45 (NovoLIN R SUPPLEMENTAL SCALE) 1 Q4H SQ 01/04/17 11:00 01/07/17 14:46 (Morphine Inj) 1 mg Q4H PRN IV PUSH 01/04/17 11:00 01/07/17 13:25 Hydrocortisone Sodium Succinate 50 mg 50 mg Q6H IV PUSH 01/06/17 15:00 01/07/17 14:21 (Sodium Chloride 23.4% Inj/Sterile Water For Inj) 1,009.625 ml @ 50 mls/hr [id number] IV 01/06/17 12:00 01/07/17 08:17 (Carafate Liq) 1 gm ACHS PO 01/06/17 16:00 01/07/17 15:33 (Colyte Liq) 4,000 ml ONCE ONCE PO 01/08/17 16:00 01/08/17 16:01 Family History Patient denies mental illness in the family Social History Patient lives with fianc and 9-year-old son Patient's Strengths (min. 2) Patient verbal able [facility] appears cooperative Physical Exam [place] [facility] [place] Vital Signs Vital Signs Date Time Temp Pulse Resp B/P Pulse Ox O2 Delivery O2 Flow Rate FiO2 01/07/17 14:00 76 01/07/17 12:00 97.9 27 120/84 99 01/06/17 19:00 Nasal Cannula 2.00 01/05/17 20:58 21 I/O 01/06/17 01/06/17 01/07/17 08:00 16:00 00:00 Intake Total 1482 ml 1230 ml 2047 ml Output Total 700 ml 700 ml 1600 ml Balance 782 ml 530 ml 447 ml Mental Status Examination Lordotic thin slender white female sitting up in her bed on leg exposed appears to be bearing short-shorts Appearance Clean neatly Speech: Pressured, Rapid Orientation: x3 Memory: Unremarkable Thought Process: Logical Thought Content: Unremarkable Hallucination Type: None Attention and Concentration: Good Suicidal Ideation: No Previous Suicide Attempts: No Homicidal Ideation: No Previous Homicide Attempts: No Insight: Fair Judgement: WNL (fair) Affect: Other (slight increase range and intensity) Mood: Euthymic Motor Activity: Normal gait Assessment & Plan Problem List: (1) Hypomania ICD Code: F30.8 Assessment & Plan Estimated LOS: days at this time patient does not meet criteria for inpatient psychiatric stay, at this time I would not have any specific recommendations for medication. It appears There is some resistance for her to acknowledge the possibility of a bipolar disorder hypomania. Though she does demonstrate that at this time. Thus at this time have no specific recommendations for medication. There okay by psych for discharge or medically clear and stable patient may follow-up with PCP. Patient counseled will sign off the present time Discharge Planning See above Request HC Surrog/Guard Advoc?: No Brian Barnard MD Jan 07, 2017 16:01
[2017-01-07] MEDS ORDERED: POTASSIUM CHLORIDE 10 MEQ CONTROLLED RELEASE TAB PO SCH (20:00)
[2017-01-07] MEDS ORDERED: ZOLPIDEM TARTRATE 10 MG TAB PO ONE (20:00)
[2017-01-07] MEDS: MAGNESIUM OXIDE 400 MG TAB PO SCH (20:56)
[2017-01-07] MEDS: POTASSIUM PHOSPHATE MONOBASIC 500 MG TAB PO PRN (20:57)
[2017-01-08] VITALS (13 sets, daily range): BP systolic 135–158; BP diastolic 71–105; PULSE 63–92; RESP 10–28; TEMP 98.4–99.5; O2SAT 96–100
[2017-01-08] MEDS: POTASSIUM PHOSPHATE MONOBASIC 500 MG TAB PO PRN (00:01)
[2017-01-08] MEDS: INSULIN NovoLIN REGULAR SUPPLEMENTAL SCALE SQ SCH ×6 (03:00→23:00)
[2017-01-08] MEDS: HYDROCORTISONE SOD SUCCINATE 100 MG VIAL IV PUSH SCH ×3 (03:02→17:02)
[2017-01-08] MEDS: CHLORHEXIDINE GLUCONATE 2 % 1 PACK (2 CLOTHS) TOP SCH (03:03)
[2017-01-08] MEDS: MORPHINE SULFATE 4 MG/ML INJ IV PUSH PRN ×6 (03:03→23:11)
[2017-01-08] MEDS: HEPARIN SODIUM - SQ 10,000 UNITS/ML VIAL SQ SCH ×3 (03:03→20:06)
[2017-01-08] MEDS: SODIUM CHLORIDE 23.4% INJ 38.5 MEQ in WATER STERILE FOR INJ 1,000 ML IV SCH ×2 (03:04→22:29)
[2017-01-08 05:26] LABS: BASOPHIL % 0.1 % (0.0-2.0); EOSINOPHIL % 0.1 % (0.0-4.0); HEMATOCRIT 27.3 % (35.0-46.0); LYMPH % 10.2 % (9.0-44.0); MEAN CELL VOLUME 87.7 FL (80.0-100.0); MEAN CORPUSCULAR HEMOGLOBIN 28.2 PG (27.0-34.0); MEAN CORPUSCULAR HGB CONC 32.2 % (32.0-36.0); MONO % 8.3 % (0.0-8.0); NEUT % 81.3 % (16.0-70.0); PLATELET COUNT 319 TH/MM3 (150-450); RED BLOOD COUNT 3.12 MIL/MM3 (4.00-5.30); RED CELL DISTRIBUTION WIDTH 15.6 % (11.6-17.2); WHITE BLOOD COUNT 19.7 TH/MM3 (4.0-11.0)
[2017-01-08 05:44] LABS: HEMO FLAGS AUTO DIFF
[2017-01-08 05:47] LABS: BICARBONATE 21.9 MEQ/L (21.0-32.0); MAGNESIUM 1.7 MG/DL (1.5-2.5)
[2017-01-08 05:48] LABS: POTASSIUM 2.8 MEQ/L (3.5-5.1)
[2017-01-08 05:58] LABS: BANDS 3 % (0-6); CORRECTED NUCLEATED RBC 1 /100 WBC (0-0); MYELOCYTES 3 % (0-0); NEUTROPHIL # MANUAL DIFF 17.3 TH/MM3 (1.8-7.7); POLYS (SEG NEUTROPHILS) 82 % (16-70); WBC DIFF SAMPLE 100
[2017-01-08 05:59] LABS: OVALOCYTES 1+ (NORMAL); PLATELET ESTIMATE SMEAR NORMAL (NORMAL); PLATELET MORPHOLOGY NORMAL (NORMAL); SCAN/DIFF FINAL DIFF MANUAL
[2017-01-08] MEDS: SUCRALFATE 1 GM/10 ML CUP PO SCH ×4 (06:18→21:37)
[2017-01-08] MEDS: metroNIDAZOLE 500 MG INJ 100 ML IV SCH ×3 (06:19→17:49)
[2017-01-08] MEDS: POTASSIUM CHLOR 20 MEQ PREMIX 100 ML IV PRN ×3 (06:21→23:47)
[2017-01-08 07:52] LABS: CREATININE/MAG 24 HR 0.91 g/24 h (0.63-2.50)
--- NOTE | 2017-01-08 08:12 | HHI.PR ---
Subjective Remarks No acute events overnight. Afebrile, vital signs stable. Patient continues to complain of abdominal and back pain. She also states that she is very anxious and having difficulty sleeping. Objective Vital Signs Date Time Temp Pulse Resp B/P Pulse Ox O2 Delivery O2 Flow Rate FiO2 01/08/17 06:00 66 01/08/17 04:00 98.4 72 19 146/92 100 01/08/17 04:00 72 01/08/17 02:00 70 01/08/17 00:00 98.6 80 24 135/71 98 01/08/17 00:00 80 01/07/17 22:57 20 01/07/17 22:00 83 01/07/17 20:00 89 01/07/17 20:00 98.1 89 19 160/92 94 01/07/17 18:00 69 01/07/17 16:00 99.3 75 12 134/78 97 01/07/17 16:00 75 01/07/17 14:00 76 01/07/17 12:00 97.9 80 27 120/84 99 01/07/17 12:00 71 01/07/17 10:00 76 01/07/17 08:56 100 01/07/17 08:00 67 01/07/17 08:00 99.0 89 25 156/71 99 I/O 01/07/17 01/07/17 01/07/17 01/08/17 01/08/17 01/08/17 07:00 15:00 23:00 07:00 15:00 23:00 Intake Total 1047 ml 1600 ml 1544 ml 794 ml Output Total 1400 ml 1275 ml 1100 ml 1600 ml Balance -353 ml 325 ml 444 ml -806 ml Intake Oral 200 ml 888 ml 700 ml 350 ml IV Total 847 ml 712 ml 844 ml 444 ml Output Urine Total 1400 ml 1275 ml 1100 ml 1600 ml # Bowel Movements 1 0 1 Result Diagram: 01/08/17 0456 01/08/17 0456 Imaging Last Impressions Brain MRI 01/07/17 1032 Signed Impressions: Service Date/Time: Saturday, January 07, 2017 10:57 - CONCLUSION: No intracranial abnormality is identified. No pituitary gland mass is seen. Brian Zhou MD Thyroid Ultrasound 01/04/17 0000 Signed Impressions: Service Date/Time: Wednesday, January 04, 2017 11:43 - CONCLUSION: Scattered small cystic areas in both lobes of thyroid. Nathaniel Porter MD FACR Renal Ultrasound 01/03/17 1218 Signed Impressions: Service Date/Time: Tuesday, January 03, 2017 12:35 - CONCLUSION: Normal examination except for slight increased echogenicity to both renal cortices suggesting mild chronic medical renal disease. Feliz Leung MD Chest X-Ray 01/03/17 0000 Signed Impressions: Service Date/Time: Tuesday, January 03, 2017 09:34 - CONCLUSION: Normal examination. Feliz Leung MD Abdomen/Pelvis CT 01/03/17 0000 Signed Impressions: Service Date/Time: Tuesday, January 03, 2017 09:49 - CONCLUSION: Normal examination. Dense stool throughout distended colon Feliz Leung MD Objective Remarks Gen.: No acute distress Head: Normocephalic. Atraumatic. EENT: Pupils equal round and reactive to light. Nose without drainage. Airway intact. Throat without injection. Cardiovascular: Regular rate and rhythm. No murmurs, rubs or gallops. Respiratory: Lungs clear to auscultation bilaterally. No wheezes or rhonchi. Abdomen: Soft, mildly tender to palpation, nondistended. No peritoneal signs. Musculoskeletal: No gross deformities. No edema. Skin: No obvious rashes or erythema. Neuro: Sensory and motor grossly intact. Cranial nerves II through XII grossly intact. Psych: Anxious, pressured speech A/P Problem List: (1) Anemia ICD Code: D64.9 (2) Anxiety with somatization ICD Code: F41.9 (3) Hypokalemia ICD Code: E87.6 (4) SHABANA (acute kidney injury) ICD Code: N17.9 (5) Leukocytosis ICD Code: D72.829 (6) Abdominal pain ICD Code: R10.9 (7) Hypothyroid ICD Code: E03.9 Assessment and Plan 41-year-old female with severe hypokalemia and persistent leukocytosis. 1. Electrolyte abnormalities Potassium remains extremely low despite aggressive replacement, continue replacing Continue repleting calcium and phosphorus as well Continue shoe ironer daily 2. Persistent leukocytosis Patient afebrile however white blood cell count trending upward with left shift despite treatment with aztreonam and Flagyl Blood cultures negative 4 days Possibly due to dental caries? Infectious disease consulted, appreciate their assistance 3. Anemia Continue to monitor H&H stable 4. Chronic abdominal pain Patient complains of bloody stools GI consulted, plan for EGD/colonoscopy tomorrow 5. Hypothyroid Patient with low TSH low free T4 Concern for euthyroid sick syndrome Ultrasound of the thyroid showed small cystic areas in both lobes of the thyroid Thyroid peroxidase antibody, ELLE negative Levothyroxine 25 g daily 6. Acute kidney injury (resolved) Nephrology consulted, appreciate recommendations Continue 1/4 NS at 50 cc per hour 7. Anxiety/possible bipolar disorder Patient seen by psychiatry who has no recommendations at this time Cleared for discharge from a psychiatry standpoint Taper steroids, now at 50 mg every 8 hours Clear liquid diet Holding heparin for EGD/colonoscopy tomorrow Discharge Planning Unclear at this time Vibha Atwood MD R3 Jan 08, 2017 08:12
[2017-01-08] MEDS: AZTREONAM INJ 500 MG in SODIUM CHLORIDE 0.9% INJ 100 ML IV SCH ×2 (08:17→21:37)
[2017-01-08] MEDS: PANTOPRAZOLE SODIUM 40 MG VIAL IV SCH (08:17)
[2017-01-08] MEDS: POTASSIUM CL 40 MEQ/30 ML LIQ UDC NG SCH (08:18)
[2017-01-08] MEDS: MAGNESIUM OXIDE 400 MG TAB PO SCH ×2 (08:19→21:38)
[2017-01-08] MEDS: LEVOTHYROXINE SODIUM 25 MCG TAB PO SCH (08:22)
[2017-01-08] MEDS: SODIUM CHLORIDE 0.9% FLUSH 5 ML FLUSH IV FLUSH SCH ×2 (09:00→20:06)
[2017-01-08] MEDS: POTASSIUM PHOSPHATE INJ 30 MMOL in SODIUM CHLOR 0.9% 250 ML INJ 250 ML IV PRN (10:15)
[2017-01-08] MEDS ORDERED: PEG (High)/E-LYTE SOLN 4000 ML BTL PO ONE (16:00)
[2017-01-08] MEDS: ONDANSETRON HCL 4 MG/2 ML VIAL IV PRN ×2 (17:02→22:29)
--- NOTE | 2017-01-08 17:55 | HHI.GIFU ---
Subjective Remarks Patient sitting on into bed. Reports that she is having difficulty drinking the bowel prep every 10 minutes. Feels that if she can slow this down a bit she would be able to complete the GoLYTELY by midnight. Has not had a bowel movement in a few days. No GI bleeding. Nausea without vomiting. Continues to have abdominal pain, controlled. (Oneida Fraga) Objective Vitals I&O Vital Signs Date Time Temp Pulse Resp B/P Pulse Ox O2 Delivery O2 Flow Rate FiO2 01/08/17 16:00 64 01/08/17 16:00 98.8 64 13 138/90 96 01/08/17 14:00 68 01/08/17 12:00 99.5 89 28 135/78 99 01/08/17 12:00 89 01/08/17 10:00 63 01/08/17 08:24 100 01/08/17 08:00 81 01/08/17 08:00 99.3 92 11 151/105 99 01/08/17 06:00 66 01/08/17 04:00 98.4 72 19 146/92 100 01/08/17 04:00 72 01/08/17 02:00 70 01/08/17 00:00 98.6 80 24 135/71 98 01/08/17 00:00 80 01/07/17 22:57 20 01/07/17 22:00 83 01/07/17 20:00 89 01/07/17 20:00 98.1 89 19 160/92 94 01/07/17 18:00 69 I/O 01/07/17 01/07/17 01/07/17 01/08/17 01/08/17 01/08/17 07:00 15:00 23:00 07:00 15:00 23:00 Intake Total 1047 ml 1600 ml 1544 ml 794 ml 1749 ml Output Total 1400 ml 1275 ml 1100 ml 1600 ml 1425 ml Balance -353 ml 325 ml 444 ml -806 ml 324 ml Intake Oral 200 ml 888 ml 700 ml 350 ml 804 ml IV Total 847 ml 712 ml 844 ml 444 ml 945 ml Output Urine Total 1400 ml 1275 ml 1100 ml 1600 ml 1425 ml Stool Total 0 ml # Bowel Movements 1 0 1 0 Laboratory Laboratory Tests Test 01/08/17 04:56 White Blood Count 19.7 Red Blood Count 3.12 Hemoglobin 8.8 Hematocrit 27.3 Mean Corpuscular Volume 87.7 Mean Corpuscular Hemoglobin 28.2 Mean Corpuscular Hemoglobin 32.2 Concent Red Cell Distribution Width 15.6 Platelet Count 319 Mean Platelet Volume 7.9 Neutrophils (%) (Auto) 81.3 Lymphocytes (%) (Auto) 10.2 Monocytes (%) (Auto) 8.3 Eosinophils (%) (Auto) 0.1 Basophils (%) (Auto) 0.1 Neutrophils # (Auto) 16.0 Lymphocytes # (Auto) 2.0 Monocytes # (Auto) 1.6 Eosinophils # (Auto) 0.0 Basophils # (Auto) 0.0 CBC Comment AUTO DIFF Differential Total Cells 100 Counted Neutrophils % (Manual) 82 Band Neutrophils % 3 Lymphocytes % 6 Monocytes % 6 Neutrophils # (Manual) 17.3 Myelocytes 3 Nucleated Red Blood Cells 1 Differential Comment FINAL DIFF MANUAL Platelet Estimate NORMAL Platelet Morphology Comment NORMAL Ovalocytes 1+ Sodium Level 145 Potassium Level 2.8 Chloride Level 111 Carbon Dioxide Level 21.9 Anion Gap 12 Blood Urea Nitrogen 18 Creatinine 0.99 Estimat Glomerular Filtration 62 Rate Random Glucose 120 Calcium Level 8.3 Phosphorus Level 0.9 Magnesium Level 1.7 Imaging Last Impressions Brain MRI 01/07/17 1032 Signed Impressions: Service Date/Time: Saturday, January 07, 2017 10:57 - CONCLUSION: No intracranial abnormality is identified. No pituitary gland mass is seen. Brian Zhou MD Thyroid Ultrasound 01/04/17 0000 Signed Impressions: Service Date/Time: Wednesday, January 04, 2017 11:43 - CONCLUSION: Scattered small cystic areas in both lobes of thyroid. Nathaniel Porter MD FACR Renal Ultrasound 01/03/17 1218 Signed Impressions: Service Date/Time: Tuesday, January 03, 2017 12:35 - CONCLUSION: Normal examination except for slight increased echogenicity to both renal cortices suggesting mild chronic medical renal disease. Feliz Leung MD Chest X-Ray 01/03/17 0000 Signed Impressions: Service Date/Time: Tuesday, January 03, 2017 09:34 - CONCLUSION: Normal examination. Feliz Leung MD Abdomen/Pelvis CT 01/03/17 0000 Signed Impressions: Service Date/Time: Tuesday, January 03, 2017 09:49 - CONCLUSION: Normal examination. Dense stool throughout distended colon Feliz Leung MD Physical Exam HEENT: Normocephalic; atraumatic; no jaundice. CHEST: Chest is clear to auscultation and percussion. CARDIAC: RRR ABDOMEN: Soft, nondistended, moderate lower abdominal tenderness; no hepatosplenomegaly; bowel sounds are present in all four quadrants. EXTREMITIES: No clubbing, cyanosis, or edema. SKIN: Normal; no rash; no jaundice. INSURANCE AGENTS SUPERVISOR: No focal deficits; alert and oriented times three. (FragaOneida Horta BRAKE RELINER) Assessment and Plan Plan ASSESSMENT: - Abdominal pain. Abdomen/Pelvis CT (01/03/17)---> CT Normal examination. Dense stool throughout distended colon Her pain is a constant sharp diffuse abdominal pain aggravated by movement, food, breathing, and lying flat. S/P EGD/Colonoscopy (04/22/16)---> gastritis, irregular z line, very poor prep. Colonoscopy on (04/25/16) showed colonic ulcer, bx acute colitis. She was seen at sometimes in August of last year and under went another EGD/colonoscopy for which I don't have the records. Plan for EGD/Colonoscopy in am. - Anemia. No active bleeding at this time. H&H 8.8/27.3 - Hematochezia, questionable ulcerative colitis, not on any medications. No bleeding today. EGD/Colonoscopy in am. - N/V, Severe GERD/? gastroparesis. States severe daily heartburn despite Pepcid AC and Tagamet at home. EGD as above - Alternating constipation and diarrhea. States no bm yet today. - Abn. Wt. Loss with 100 ib weight loss since November of last year. CT as above. - Acute kidney injury nephrology on the case - Hair loss, poor dentition, lactating. MRI negative for pituitary mass. - Severe electrolyte abnormalities/hypokalemia. Per primary - Lupus, bipolar disorder per attending PLAN: - Plan for egd/colonoscopy in am - Obtain consents - Clear liquids - NPO after MN - Golytely prep - PPI - Cont. abx - Carafate - Obtain records from - Monitor hh - Transfuse as needed - Notify GI for active bleed - Supportive care - Further recommendations to follow based on results of above - Pt seen and examined by Dr. Espinosa and myself and this note is written on his behalf (Oneida Fraga) Physician Comments Patient Seen and examined Agree with above Continue with current supportive care Monitor labs Plan for EGD and a colonoscopy tomorrow (Erik Espinosa MD) Oneida Fraga Jan 08, 2017 17:55 Erik Espinosa MD Jan 08, 2017 19:31
--- NOTE | 2017-01-08 19:02 | PD.ID.CON ---
History of Present Illness Service ID Consult Requested By Dr Atwood Reason for Consult leukocytosis Primary Care Physician No Primary Care Physician Diagnoses: History of Present Illness Pt is a 41 yo with mult med and psych problems, and was eval'd by psychiatrist who diagnosed her with hypomania She presented with nausea, vomiting and abdominal discomfort that was going on for 1-2 wks On admission it was noted that her K is very low and remains low despite replacement SHe is currently in ICU 2/2 severe electrolyte imbalances She presented with normal WBC and afebrile, but her WBC went up 2nd day and stay high in 18-19K range She was placed on empiric abx (flagyl, aztreonam) The w/u is negative (brain MRI, CT A/P, blood clx - final, UA) Review of Systems Except as stated in HPI: all other systems reviewed are Neg Past Family Social History Allergies: Coded Allergies: Keflex (Verified Allergy, Severe, RASH,SWELLING, 01/03/17) Penicillin (Verified Allergy, Severe, RASH,SWELLING, 01/03/17) Reglan (Verified Allergy, Severe, DYSTONIC REACTION, 01/03/17) Seafood (Verified Allergy, Severe, SWELLING IN THROAT, SOB, 01/03/17) Toradol (Verified Allergy, Severe, RASH, 01/03/17) Compazine (Verified Allergy, Mild, DYSTONIC REACTION, 01/03/17) Phenergan (Verified Allergy, Mild, DYSTONIC REACTION, 01/03/17) Neurontin (Verified Adverse Reaction, Severe, SEIZURES, 01/03/17) *MDRO Multi-Drug Resistant Organism (Verified Adverse Reaction, Unknown, ) MRSA axilla/ breast 2009 MRSA PCR (nares) negative - 04/19/16 & 04/21/16 Cleared per Infection Control Past Medical History Bipolar disorder Anxiety Atrial fibrillation Appendiceal cancer Endometriosis GERD Headache Kidney stones Hypertension Migraines Ulcerative colitis Question possible history of lupus Ectopic at age 17 Past Surgical History Multiple prior laparotomies Appendectomy Interstitial cystitis Partial salpingo-oophorectomy Drainage of oral abscess Active Ordered Medications Medications where reviewed in EMR Antibiotics Include: azactam, flagyl Family History noncontributory Social History denies tob, etoh. 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 Physical Exam Vital Signs Vital Signs Date Time Temp Pulse Resp B/P Pulse Ox O2 Delivery O2 Flow Rate FiO2 01/08/17 18:00 83 01/08/17 16:00 64 01/08/17 16:00 98.8 64 13 138/90 96 01/08/17 14:00 68 01/08/17 12:00 99.5 89 28 135/78 99 01/08/17 12:00 89 01/08/17 10:00 63 01/08/17 08:24 100 01/08/17 08:00 81 01/08/17 08:00 99.3 92 11 151/105 99 01/08/17 06:00 66 01/08/17 04:00 98.4 72 19 146/92 100 01/08/17 04:00 72 01/08/17 02:00 70 01/08/17 00:00 98.6 80 24 135/71 98 01/08/17 00:00 80 01/07/17 22:57 20 01/07/17 22:00 83 01/07/17 20:00 89 01/07/17 20:00 98.1 89 19 160/92 94 Physical Exam CONSTITUTIONAL/GENERAL: This is an adequately nourished patient, in no apparent distress. TUBES/LINES/DRAINS: SKIN: No jaundice, rashes, or lesions. Ecchymoses on upper extremities. No wounds seen anteriorly. Skin temperature appropriate. Not diaphoretic. HEAD: Atraumatic. Normocephalic. EYES: Pupils equal and round and reactive. Extraocular motions intact. No scleral icterus. No injection or drainage. Fundi not examined. ENT: Hearing grossly normal. Nose without bleeding or purulent drainage. Oral mucosae moist; very poor dentition NECK: Trachea midline. Supple, nontender. No palpable thyroid enlargement or nodularity. CARDIOVASCULAR: Regular rate and rhythm without murmurs, gallops, or rubs. No JVD. Peripheral pulses symmetric. RESPIRATORY/CHEST: Symmetric, unlabored respirations. Clear to auscultation. Breath sounds equal bilaterally. No wheezes, rales, or rhonchi. GASTROINTESTINAL: Abdomen soft, non-tender, nondistended. No hepato-splenomegaly , or palpable masses. No guarding. Bowel sounds present. GENITOURINARY: Without palpable bladder distension. Boyd catheter in place with clear yellow urine MUSCULOSKELETAL: Extremities without clubbing, cyanosis, or edema. No joint tenderness or effusion noted. No calf tenderness. No mottling or clubbing. LYMPHATICS: No palpable cervical or supraclavicular adenopathy. NEUROLOGICAL: Awake and alert. Motor and sensory grossly within normal limits. Follows commands. NOrmal speechp. Moves all extremities. PSYCHIATRIC: No obvious anxiety/depression. no apparent hallucinations or other psychotic thought process. Laboratory Laboratory Tests Test 01/08/17 04:56 White Blood Count 19.7 Red Blood Count 3.12 Hemoglobin 8.8 Hematocrit 27.3 Mean Corpuscular Volume 87.7 Mean Corpuscular Hemoglobin 28.2 Mean Corpuscular Hemoglobin 32.2 Concent Red Cell Distribution Width 15.6 Platelet Count 319 Mean Platelet Volume 7.9 Neutrophils (%) (Auto) 81.3 Lymphocytes (%) (Auto) 10.2 Monocytes (%) (Auto) 8.3 Eosinophils (%) (Auto) 0.1 Basophils (%) (Auto) 0.1 Neutrophils # (Auto) 16.0 Lymphocytes # (Auto) 2.0 Monocytes # (Auto) 1.6 Eosinophils # (Auto) 0.0 Basophils # (Auto) 0.0 CBC Comment AUTO DIFF Differential Total Cells 100 Counted Neutrophils % (Manual) 82 Band Neutrophils % 3 Lymphocytes % 6 Monocytes % 6 Neutrophils # (Manual) 17.3 Myelocytes 3 Nucleated Red Blood Cells 1 Differential Comment FINAL DIFF MANUAL Platelet Estimate NORMAL Platelet Morphology Comment NORMAL Ovalocytes 1+ Sodium Level 145 Potassium Level 2.8 Chloride Level 111 Carbon Dioxide Level 21.9 Anion Gap 12 Blood Urea Nitrogen 18 Creatinine 0.99 Estimat Glomerular Filtration 62 Rate Random Glucose 120 Calcium Level 8.3 Phosphorus Level 0.9 Magnesium Level 1.7 Result Diagram: 01/08/17 0456 01/08/17 0456 Imaging Last Impressions Brain MRI 01/07/17 1032 Signed Impressions: Service Date/Time: Saturday, January 07, 2017 10:57 - CONCLUSION: No intracranial abnormality is identified. No pituitary gland mass is seen. Brian Zhou MD Thyroid Ultrasound 01/04/17 0000 Signed Impressions: Service Date/Time: Wednesday, January 04, 2017 11:43 - CONCLUSION: Scattered small cystic areas in both lobes of thyroid. Nathaniel Porter MD FACR Renal Ultrasound 01/03/17 1218 Signed Impressions: Service Date/Time: Tuesday, January 03, 2017 12:35 - CONCLUSION: Normal examination except for slight increased echogenicity to both renal cortices suggesting mild chronic medical renal disease. Feliz Leung MD Chest X-Ray 01/03/17 0000 Signed Impressions: Service Date/Time: Tuesday, January 03, 2017 09:34 - CONCLUSION: Normal examination. Feliz Leung MD Abdomen/Pelvis CT 01/03/17 0000 Signed Impressions: Service Date/Time: Tuesday, January 03, 2017 09:49 - CONCLUSION: Normal examination. Dense stool throughout distended colon Feliz Leung MD Assessment and Plan Assessment and Plan Hypokalemia Leukocytosis , not present on admission and no e/o infection on w/u ? solucortef - dc abx monitor clinically for infx (localizing signs, fever) chk stool for c.diff if liquid diarrhea noted Shawna Levy MD Jan 08, 2017 19:02
[2017-01-08 21:17] LABS: POTASSIUM 2.6 MEQ/L (3.5-5.1)
[2017-01-08] MEDS: POTASSIUM CL 40 MEQ/30 ML LIQ UDC PO/TUBE PRN (21:34)
[2017-01-08] MEDS: ZOLPIDEM TARTRATE 10 MG TAB PO PRN (21:38)
[2017-01-09] VITALS (12 sets, daily range): BP systolic 147–162; BP diastolic 65–77; PULSE 56–93; RESP 10–24; TEMP 98.1–98.7; O2SAT 99–100
[2017-01-09] MEDS: HYDROCORTISONE SOD SUCCINATE 100 MG VIAL IV PUSH SCH ×3 (01:57→17:00)
[2017-01-09] MEDS: CHLORHEXIDINE GLUCONATE 2 % 1 PACK (2 CLOTHS) TOP SCH (01:58)
[2017-01-09] MEDS: INSULIN NovoLIN REGULAR SUPPLEMENTAL SCALE SQ SCH ×6 (02:50→23:00)
[2017-01-09] MEDS: MORPHINE SULFATE 4 MG/ML INJ IV PUSH PRN ×4 (02:50→20:50)
[2017-01-09 05:18] LABS: AUTOMATED NEUTROPHIL # 11.1 TH/MM3 (1.8-7.7); BASOPHIL % 0.1 % (0.0-2.0); EOSINOPHIL % 0.3 % (0.0-4.0); HEMATOCRIT 25.9 % (35.0-46.0); LYMPH % 14.3 % (9.0-44.0); LYMPHOCYTE # 2.1 TH/MM3 (1.0-4.8); MEAN CELL VOLUME 85.8 FL (80.0-100.0); MEAN CORPUSCULAR HEMOGLOBIN 29.1 PG (27.0-34.0); MEAN CORPUSCULAR HGB CONC 33.9 % (32.0-36.0); MONO % 8.2 % (0.0-8.0); NEUT % 77.1 % (16.0-70.0); PLATELET COUNT 295 TH/MM3 (150-450); RED BLOOD COUNT 3.02 MIL/MM3 (4.00-5.30); RED CELL DISTRIBUTION WIDTH 16.2 % (11.6-17.2); WHITE BLOOD COUNT 14.4 TH/MM3 (4.0-11.0)
[2017-01-09 05:28] LABS: HEMO FLAGS AUTO DIFF
[2017-01-09 05:49] LABS: ALKALINE PHOSPHATASE 41 U/L (45-117); ALT (GPT) 14 U/L (10-53); ANION GAP 9 MEQ/L (5-15); AST (GOT) 15 U/L (15-37); BLOOD UREA NITROGEN 13 MG/DL (7-18); CHLORIDE 109 MEQ/L (98-107); GLOMERULAR FILTRATION RATE 94 ML/MIN (>89); MAGNESIUM 1.7 MG/DL (1.5-2.5); SODIUM (NA) 144 MEQ/L (136-145); TOTAL BILIRUBIN ADULT 0.2 MG/DL (0.2-1.0)
[2017-01-09 05:52] LABS: POTASSIUM 2.8 MEQ/L (3.5-5.1)
[2017-01-09] MEDS: LEVOTHYROXINE SODIUM 25 MCG TAB PO SCH (06:00)
[2017-01-09] MEDS: SUCRALFATE 1 GM/10 ML CUP PO SCH ×4 (06:06→20:50)
[2017-01-09] MEDS: POTASSIUM CHLOR 20 MEQ PREMIX 100 ML IV PRN ×2 (06:08→13:02)
[2017-01-09 06:47] LABS: BANDS 3 % (0-6); BASOPHILS 1 % (0-2); EOSINOPHILS 1 % (0-4); METAMYELOCYTES 1 % (0-1); MYELOCYTES 2 % (0-0); NEUTROPHIL # MANUAL DIFF 11.5 TH/MM3 (1.8-7.7); POLYS (SEG NEUTROPHILS) 74 % (16-70); WBC DIFF SAMPLE 100
[2017-01-09 06:48] LABS: OVALOCYTES 1+ (NORMAL); PLATELET ESTIMATE SMEAR NORMAL (NORMAL); PLATELET MORPHOLOGY NORMAL (NORMAL); SCAN/DIFF FINAL DIFF MANUAL
--- NOTE | 2017-01-09 07:57 | HHI.PR ---
Subjective Remarks This is a pleasant 41 y/o Female with multiple admissions to ICU for severe hypokalemia, as per patient during the last 18 months she is been in Intensive care for eight months, Her symptoms she states started back in July or August of last year where she noticed hair loss, weight loss, fatigue, nausea, vomiting, diarrhea. unintentional has Gastroparesis, Ulcerative Colitis, Lupus, Bipolar disorder, tingling sensation on hands and feet, started to lactate and she is non . Critical Care notes. 01/04 Patient is lying in bed in NAD. Afebrile. K level 1.5 this morning. / No acute events overnight. Awake and alert. K 2.2 today 01/06 Patient is lying in bed in NAD. K 2.6 this morning. 01/07 No acute events overnight. Afebrile. 01/09 patient seen in her bedroom in Intensive care unit asked to continue management by Hospitalist, discussed with Nurse Latrell Tom, CT abdomen Normal. last year had Colonoscopy showed colonic ulcer, asked for new EGD and Colonoscopy later today, has Anemia GI specialist recommended transfusion as needed, Nephrology specialist following for Acute Kidney injury and severe hypokalemia, EGD showed severe Gastritis and Esophagitis, was not possible to perform the Colonoscopy recommended to continue antibiotics, Carafate, PPI, Magnesium Citrate Doctor Alvarado Lucero following for GI, appreciated. Objective Vital Signs Date Time Temp Pulse Resp B/P Pulse Ox O2 Delivery O2 Flow Rate FiO2 01/09/17 06:00 57 01/09/17 04:00 98.5 70 11 147/65 99 01/09/17 04:00 70 01/09/17 02:55 22 01/09/17 02:00 64 01/09/17 00:00 82 01/09/17 00:00 98.7 82 24 154/65 100 01/08/17 22:00 84 01/08/17 20:00 64 01/08/17 20:00 98.9 64 10 158/98 98 01/08/17 18:00 83 01/08/17 16:00 64 01/08/17 16:00 98.8 64 13 138/90 96 01/08/17 14:00 68 01/08/17 12:00 99.5 89 28 135/78 99 01/08/17 12:00 89 01/08/17 10:00 63 01/08/17 08:24 100 01/08/17 08:00 81 01/08/17 08:00 99.3 92 11 151/105 99 I/O 01/08/17 01/08/17 01/08/17 01/09/17 01/09/17 01/09/17 07:00 15:00 23:00 07:00 15:00 23:00 Intake Total 794 ml 1749 ml 2892 ml 2744 ml Output Total 1600 ml 1425 ml 1950 ml 1550 ml Balance -806 ml 324 ml 942 ml 1194 ml Intake Oral 350 ml 804 ml 2000 ml 2000 ml IV Total 444 ml 945 ml 892 ml 744 ml Output Urine Total 1600 ml 1425 ml 1950 ml 1550 ml Stool Total 0 ml # Bowel Movements 1 0 1 1 Result Diagram: 01/09/17 0505 01/09/17 0505 Imaging Last Impressions Brain MRI 01/07/17 1032 Signed Impressions: Service Date/Time: Saturday, January 07, 2017 10:57 - CONCLUSION: No intracranial abnormality is identified. No pituitary gland mass is seen. Brian Zhou MD Thyroid Ultrasound 01/04/17 0000 Signed Impressions: Service Date/Time: Wednesday, January 04, 2017 11:43 - CONCLUSION: Scattered small cystic areas in both lobes of thyroid. Nathaniel Porter MD FACR Renal Ultrasound 01/03/17 1218 Signed Impressions: Service Date/Time: Tuesday, January 03, 2017 12:35 - CONCLUSION: Normal examination except for slight increased echogenicity to both renal cortices suggesting mild chronic medical renal disease. Feliz Leung MD Chest X-Ray 01/03/17 0000 Signed Impressions: Service Date/Time: Tuesday, January 03, 2017 09:34 - CONCLUSION: Normal examination. Feliz Leung MD Abdomen/Pelvis CT 01/03/17 0000 Signed Impressions: Service Date/Time: Tuesday, January 03, 2017 09:49 - CONCLUSION: Normal examination. Dense stool throughout distended colon Feliz Leung MD Procedures EGD showed Severe Gastritis and Esophagitis. Other Results Laboratory Tests Test 01/03/17 01/04/17 01/06/17 01/06/17 17:11 14:34 04:59 09:00 Homocysteine (Cardiovascular) 8.8 umol/L Methylmalonic Acid 0.31 nmol/mL Prolactin 20.4 ng/mL Anti-Nuclear Antibody Screen NEG Thyroglobulin Antibody LESS THAN 1 IU/mL Thyroid Peroxidase Antibodies LESS THAN 1 IU/mL Lipase 338 U/L Urine Total Volume 24 Hours 1450 ML Urine Potassium 24 Hour 55 MEQ/24HR Urine Magnesium 24 Hour 21 mg/24 h Test 01/08/17 01/09/17 04:56 05:05 Nucleated Red Blood Cells 1 /100 WBC White Blood Count 14.4 TH/MM3 Red Blood Count 3.02 MIL/MM3 Hemoglobin 8.8 GM/DL Hematocrit 25.9 % Mean Corpuscular Volume 85.8 FL Mean Corpuscular Hemoglobin 29.1 PG Mean Corpuscular Hemoglobin 33.9 % Concent Red Cell Distribution Width 16.2 % Platelet Count 295 TH/MM3 Mean Platelet Volume 7.1 FL Neutrophils (%) (Auto) 77.1 % Lymphocytes (%) (Auto) 14.3 % Monocytes (%) (Auto) 8.2 % Eosinophils (%) (Auto) 0.3 % Basophils (%) (Auto) 0.1 % Neutrophils # (Auto) 11.1 TH/MM3 Lymphocytes # (Auto) 2.1 TH/MM3 Monocytes # (Auto) 1.2 TH/MM3 Eosinophils # (Auto) 0.0 TH/MM3 Basophils # (Auto) 0.0 TH/MM3 CBC Comment AUTO DIFF Differential Total Cells 100 Counted Neutrophils % (Manual) 74 % Band Neutrophils % 3 % Lymphocytes % 14 % Monocytes % 4 % Eosinophils % 1 % Basophils % 1 % Neutrophils # (Manual) 11.5 TH/MM3 Metamyelocytes 1 % Myelocytes 2 % Differential Comment FINAL DIFF MANUAL Platelet Estimate NORMAL Platelet Morphology Comment NORMAL Ovalocytes 1+ Sodium Level 144 MEQ/L Potassium Level 2.8 MEQ/L Chloride Level 109 MEQ/L Carbon Dioxide Level 26.0 MEQ/L Anion Gap 9 MEQ/L Blood Urea Nitrogen 13 MG/DL Creatinine 0.69 MG/DL Estimat Glomerular Filtration 94 ML/MIN Rate Random Glucose 102 MG/DL Calcium Level 7.9 MG/DL Phosphorus Level 2.1 MG/DL Magnesium Level 1.7 MG/DL Total Bilirubin 0.2 MG/DL Aspartate Amino Transf 15 U/L (AST/SGOT) Alanine Aminotransferase 14 U/L (ALT/SGPT) Alkaline Phosphatase 41 U/L Total Protein 5.4 GM/DL Albumin 2.8 GM/DL Objective Remarks GENERAL: Patient is lying in bed in NAD HEENT: Normocephalic. Atraumatic. Pupils equal, round, reactive, conjugate. NECK: Neck is midline. There is no JVD. CHEST: Equal chest rise. Clear to auscultation bilaterally. CARDIOVASCULAR: Heart rate, regular rhythm. S1 and S2 without appreciable murmurs. ABDOMEN: Soft, mild tenderness on palpitation, no guarding or rebound. MUSCULOSKELETAL: Distal pulses 2+ no peripheral edema. NEUROLOGICAL: RASS 0. Subjectively she has decreased sensation to fine touch in a stocking distribution over her dorsum hands and feet. Otherwise grossly neuro intact. Medications and IVs Current Medications Medications (Trade) Dose Ordered Sig/Osito Route Start Time Stop Time Status Last Admin (NS Flush) 2 ml UNSCH PRN IV FLUSH 01/03/17 12:00 01/04/17 22:23 (NS Flush) 2 ml BID IV FLUSH 01/03/17 21:00 01/08/17 20:06 (Protonix Inj) 40 mg DAILY IV 01/04/17 09:00 01/08/17 08:17 (Zofran Inj) 4 mg Q6H PRN IV 01/03/17 12:00 01/08/17 22:29 (Heparin Inj) 5,000 units Q8H SQ 01/03/17 12:00 Hold 01/08/17 20:06 Miscellaneous Information 1 [id number] XX 01/03/17 12:00 (Chlorhexidine 2% Cloth) Taper DAILY@04 TOP 01/04/17 04:00 12/31/17 03:59 01/09/17 01:58 Chlorhexidine Gluconate 3 pack 3 pack UNSCH PRN TOP 01/03/17 12:00 Potassium Chloride 100 ml @ 50 mls/hr Q2H PRN IV 01/04/17 09:45 (KCl 20 Meq Premix Inj) 100 ml @ 50 mls/hr Q2H PRN IV 01/04/17 09:45 01/09/17 06:08 Potassium Chloride 40 meq 40 meq UNSCH PRN PO/TUBE 01/04/17 09:45 Potassium Chloride 100 ml @ 25 mls/hr UNSCH PRN IV 01/04/17 09:45 Potassium Chloride 100 ml @ 50 mls/hr Q2H PRN IV 01/04/17 09:45 01/04/17 10:34 (Magnesium Sulfate Inj/NS Inj) 100 ml @ 50 mls/hr UNSCH PRN IV 01/04/17 09:45 Magnesium Oxide 800 mg 800 mg UNSCH PRN PO 01/04/17 09:45 (Magnesium Sulfate Inj/NS Inj) 100 ml @ 50 mls/hr UNSCH PRN IV 01/04/17 09:45 Potassium Phosphate 2000 mg 2,000 mg Q4H PRN PO 01/04/17 09:45 01/08/17 00:01 (Sodium Phosphate Inj/NS 250 ml Inj) 250 ml @ 42 mls/hr UNSCH PRN IV 01/04/17 09:45 (KCl 40 Meq/30 ml Liq) 40 meq UNSCH PRN PO/TUBE 01/04/17 09:45 01/08/17 21:34 Potassium Phosphate 2000 mg 2,000 mg UNSCH PRN PO/TUBE 01/04/17 09:45 01/08/17 21:54 (Potassium Phosphate Inj/NS 250 ml Inj) 260 ml @ 42 mls/hr UNSCH PRN IV 01/04/17 09:45 01/08/17 10:15 (D50w (Vial) Inj) 25 ml UNSCH PRN IV PUSH 01/04/17 10:45 (Glucagon Inj) 1 mg UNSCH PRN OTHER 01/04/17 10:45 (NovoLIN R SUPPLEMENTAL SCALE) 1 Q4H SQ 01/04/17 11:00 01/08/17 11:00 Morphine Sulfate 1 mg 1 mg Q4H PRN IV PUSH 01/04/17 11:00 01/09/17 06:47 (Sodium Chloride 23.4% Inj/Sterile Water For Inj) 1,009.625 ml @ 50 mls/hr [id number] IV 01/06/17 12:00 01/08/17 22:29 (Carafate Liq) 1 gm ACHS PO 01/06/17 16:00 01/08/17 21:37 (Mag-Ox) 400 mg Q12HR PO 01/07/17 21:00 01/08/17 21:38 (KCl 40 Meq/30 ml Liq) 40 meq DAILY NG 01/08/17 09:00 01/08/17 08:18 (Ambien) 10 mg HS PRN PO 01/08/17 21:00 01/08/17 21:38 (Synthroid) 25 mcg DAILY@0600 PO 01/08/17 08:15 01/08/17 08:22 (SoluCORTEF INJ) 50 mg Q8H IV PUSH 01/08/17 09:00 01/09/17 01:57 A/P Assessment and Plan 1. Electrolyte derangement/severe Hypokalemia no clear etiology continue replacement. 2. Acute Kidney Injury Improving Nephrology specialist following, 3. Intractable nausea and vomit/Chronic abdominal pain, GI specialist following and scheduled for EGD/Colonoscopy next Monday01/09/17 CT abdomen and Pelvis No acute findings. 4. Anemia transfuse as needed. 5. Chronic Abdominal pain EGD found Severe esophagitis and gastritis, continue Carafate and PPIs 6. Bipolar Disorder and Anxiety Disorder.MRI no acute abnormalities, no Pituitary mass Cleared for discharge by Psychiatry specialist. 7. was on Empiric antibiotic management but no signs of infection was on Aztreonam and Flagyl Leukocytosis may be related to Steroid use, blood cultures negative. 8. Euthyroid Sick syndrome US thyroid showed Small Cystic Areas in both lobes of thyroid. thyroid peroxidase ab, ELLE negative. on Steroids to continue tapering. on Levothyroxine 9. Leukocytosis Steroid related. SCDs, SQ Heparin for DVT prophylaxis Protonix for GI prophylaxis Discharge Planning Not yet cleared by GI specialist or Nephrology. Romaine Rubio MD Jan 09, 2017 07:57 Romaine Rubio MD Jan 09, 2017 07:57
[2017-01-09] MEDS: POTASSIUM CHLOR 20 MEQ PREMIX 100 ML IV SCH ×2 (08:12→10:13)
[2017-01-09] MEDS: PANTOPRAZOLE SODIUM 40 MG VIAL IV SCH (08:14)
[2017-01-09] MEDS: SODIUM CHLORIDE 0.9% FLUSH 5 ML FLUSH IV FLUSH SCH ×2 (08:14→20:51)
[2017-01-09] MEDS: MAGNESIUM OXIDE 400 MG TAB PO SCH ×2 (09:00→20:50)
[2017-01-09] MEDS: POTASSIUM CL 40 MEQ/30 ML LIQ UDC NG SCH (09:00)
[2017-01-09] MEDS ORDERED: POTASSIUM PHOSPHATE INJ 15 MMOL in SODIUM CHLORIDE 0.9% INJ 150 ML IV ONE (10:00)
[2017-01-09] MEDS: MAGNESIUM SULFATE 1 GM PREMIX 100 ML IV SCH ×2 (10:55→12:10)
[2017-01-09] MEDS ORDERED: POTASSIUM CHLORIDE INJ 40 MEQ, SODIUM CHLORIDE 23.4% INJ 38.5 MEQ in WATER STERILE FOR ... IV SCH (11:00)
--- NOTE | 2017-01-09 11:38 | HHI.NPPN ---
Subjective Complaints: Abdominal Pain Renal Failure: Acute Interval History Had GI prep, for EGD today. K is improving slowly. (Lissette Padilla) Review of Systems General Constitutional: Fatigue (Lissette Padilla) Objective Data Data 01/08/17 01/09/17 19:00 07:00 Intake Total 1749 ml 5636 ml Output Total 1425 ml 3500 ml Balance 324 ml 2136 ml Intake Oral 804 ml 4000 ml IV Total 945 ml 1636 ml Output Urine Total 1425 ml 3500 ml Stool Total 0 ml # Bowel Movements 0 2 Vital Signs Date Time Temp Pulse Resp B/P Pulse Ox O2 Delivery O2 Flow Rate FiO2 01/09/17 10:00 56 01/09/17 08:00 58 01/09/17 08:00 98.1 58 10 157/72 100 01/09/17 06:00 57 01/09/17 04:00 98.5 70 11 147/65 99 01/09/17 04:00 70 01/09/17 02:55 22 01/09/17 02:00 64 01/09/17 00:00 82 01/09/17 00:00 98.7 82 24 154/65 100 01/08/17 22:00 84 01/08/17 20:00 64 01/08/17 20:00 98.9 64 10 158/98 98 01/08/17 18:00 83 01/08/17 16:00 64 01/08/17 16:00 98.8 64 13 138/90 96 01/08/17 14:00 68 01/08/17 12:00 99.5 89 28 135/78 99 01/08/17 12:00 89 (Lissette Padilla) -: 01/09/17 0505 01/09/17 0505 Imaging Last 72 hours Impressions Brain MRI 01/07/17 1032 Signed Impressions: Service Date/Time: Saturday, January 07, 2017 10:57 - CONCLUSION: No intracranial abnormality is identified. No pituitary gland mass is seen. Brian Zhou MD (Lissette Padilla) Physical Exam General Appearance: No Acute Distress, Comfortable, Malnourished (Lissette Padilla) Eyes Eye Exam: Pupils Equal (Lissette Padilla) Throat Throat Remarks poor dentition (Lissette Padilla) Pulmonary Resp Exam: Clear Bilaterally, Breath Sounds Equal, No Distress (Lissette Padilla) Cardiology CV Exam: Regular, Normal Sinus Rhythm (Lissette Padilla) Gastrointestinal/Abdomen GI Exam: Soft, Bowel Sounds Present GI Remarks slightly tender (Lissette Padilla) Genitourinary Exam: Clear Urine (Lissette Padilla) Musculoskeletal MS Exam: Joints Intact, Normal Tone (Lissette Padilla) Integumentary Skin Exam: Clear, Warm, Dry, Intact (Lissette Padilla) Extremeties Extremities Exam: No Edema, Pedal Pulses Palpable (Lissette Padilla) Neurologic Neuro Exam: Alert, Awake, Oriented, Speech Clear, Moving All Extremities ( Lissette Padilla) Psychiatric Psych Exam: Appropriate Responses (Lissette Padilla) Assessment/Plan Discussed Condition With: Patient Assessment Summary: SHABANA/Acute Renal Failure, Dehydration Electrolyte Assessment: Hypokalemia Problem List: (1) Hypokalemia Plan: continue IV and PO correction with serial monitoring unknown etiology, this is chronic as she has been seen multiple admission for the same 24 hr urine for K and Mag is not high, no renal wasting she may have an eating disorder that explains the hypokalemia; possibility of GI losses are being evaluated (2) SHABANA (acute kidney injury) Plan: resolved, renal function is stable acidosis corrected on IVF with K, continue to replace per below ELLE negative, she reported possible lupus remove aparicio (3) Metabolic acidosis Plan: corrected, off bicarb; monitor metabolic panel (4) Dehydration Plan: improving with IVF, continue and monitor response (Lissette Padilla) Plan patient was seen and examined. Agree with above assessment and plan. Continue to replace potassium. Added potassium to IVF. She is to have colonoscopy and EGD today. (Quirino Valenzuela MD) Lissette Padilla Jan 09, 2017 11:38 Quirino Valenzuela MD Jan 09, 2017 15:58
[2017-01-09] MEDS ORDERED: LACTATED RINGER'S 1000 ML INJ 1,000 ML IV ONE (12:00)
[2017-01-09] MEDS ORDERED: PROPOFOL 200 MG/20 ML AMP IV ONE (17:29)
[2017-01-09] MEDS ORDERED: DO NOT ADM ANY ANTICOAGULANT DRUGS XX PRN (17:55)
[2017-01-09] MEDS ORDERED: *morphine SULFATE 8 MG/ML PERIprocedure ONLY ONE (18:12)
--- NOTE | 2017-01-09 18:25 | HHI.GIFU ---
Subjective Remarks still C/O abdominal pain, not good result with prep Objective Vitals I&O Vital Signs Date Time Temp Pulse Resp B/P Pulse Ox O2 Delivery O2 Flow Rate FiO2 01/09/17 16:03 77 01/09/17 14:00 60 01/09/17 12:00 98.7 62 13 148/73 100 01/09/17 12:00 62 01/09/17 10:00 56 01/09/17 08:00 58 01/09/17 08:00 98.1 58 10 157/72 100 01/09/17 06:00 57 01/09/17 04:00 98.5 70 11 147/65 99 01/09/17 04:00 70 01/09/17 02:55 22 01/09/17 02:00 64 01/09/17 00:00 82 01/09/17 00:00 98.7 82 24 154/65 100 01/08/17 22:00 84 01/08/17 20:00 64 01/08/17 20:00 98.9 64 10 158/98 98 I/O 01/08/17 01/08/17 01/08/17 01/09/17 01/09/17 01/09/17 07:00 15:00 23:00 07:00 15:00 23:00 Intake Total 794 ml 1749 ml 2892 ml 2744 ml 1380 ml Output Total 1600 ml 1425 ml 1950 ml 1550 ml 1400 ml Balance -806 ml 324 ml 942 ml 1194 ml -20 ml Intake Oral 350 ml 804 ml 2000 ml 2000 ml 0 ml IV Total 444 ml 945 ml 892 ml 744 ml 1380 ml Output Urine Total 1600 ml 1425 ml 1950 ml 1550 ml 1400 ml Stool Total 0 ml # Bowel Movements 1 0 1 1 1 Laboratory Laboratory Tests Test 01/08/17 01/09/17 20:23 05:05 Potassium Level 2.6 2.8 Phosphorus Level 2.3 2.1 White Blood Count 14.4 Red Blood Count 3.02 Hemoglobin 8.8 Hematocrit 25.9 Mean Corpuscular Volume 85.8 Mean Corpuscular Hemoglobin 29.1 Mean Corpuscular Hemoglobin 33.9 Concent Red Cell Distribution Width 16.2 Platelet Count 295 Mean Platelet Volume 7.1 Neutrophils (%) (Auto) 77.1 Lymphocytes (%) (Auto) 14.3 Monocytes (%) (Auto) 8.2 Eosinophils (%) (Auto) 0.3 Basophils (%) (Auto) 0.1 Neutrophils # (Auto) 11.1 Lymphocytes # (Auto) 2.1 Monocytes # (Auto) 1.2 Eosinophils # (Auto) 0.0 Basophils # (Auto) 0.0 CBC Comment AUTO DIFF Differential Total Cells 100 Counted Neutrophils % (Manual) 74 Band Neutrophils % 3 Lymphocytes % 14 Monocytes % 4 Eosinophils % 1 Basophils % 1 Neutrophils # (Manual) 11.5 Metamyelocytes 1 Myelocytes 2 Differential Comment FINAL DIFF MANUAL Platelet Estimate NORMAL Platelet Morphology Comment NORMAL Ovalocytes 1+ Sodium Level 144 Chloride Level 109 Carbon Dioxide Level 26.0 Anion Gap 9 Blood Urea Nitrogen 13 Creatinine 0.69 Estimat Glomerular Filtration 94 Rate Random Glucose 102 Calcium Level 7.9 Magnesium Level 1.7 Total Bilirubin 0.2 Aspartate Amino Transf 15 (AST/SGOT) Alanine Aminotransferase 14 (ALT/SGPT) Alkaline Phosphatase 41 Total Protein 5.4 Albumin 2.8 Physical Exam HEENT: Normocephalic; atraumatic; no jaundice. CHEST: Chest is clear to auscultation and percussion. CARDIAC: RRR ABDOMEN: Soft, nondistended, moderate lower abdominal tenderness; no hepatosplenomegaly; bowel sounds are present in all four quadrants. EXTREMITIES: No clubbing, cyanosis, or edema. SKIN: Normal; no rash; no jaundice. CHEMICAL PACKAGER: No focal deficits; alert and oriented times three. Assessment and Plan Plan ASSESSMENT: - Abdominal pain. Abdomen/Pelvis CT (01/03/17)---> CT Normal examination. Dense stool throughout distended colon Her pain is a constant sharp diffuse abdominal pain aggravated by movement, food, breathing, and lying flat. S/P EGD/Colonoscopy (04/22/16)---> gastritis, irregular z line, very poor prep. Colonoscopy on (04/25/16) showed colonic ulcer, bx acute colitis. She was seen at sometimes in August of last year and under went another EGD/colonoscopy for which I don't have the records. Plan for EGD/Colonoscopy in am. - Anemia. No active bleeding at this time. H&H 8.8/27.3 - Hematochezia, questionable ulcerative colitis, not on any medications. No bleeding today. EGD/Colonoscopy in am. - N/V, Severe GERD/? gastroparesis. States severe daily heartburn despite Pepcid AC and Tagamet at home. EGD as above - Alternating constipation and diarrhea. States no bm yet today. - Abn. Wt. Loss with 100 ib weight loss since November of last year. CT as above. - Acute kidney injury nephrology on the case - Hair loss, poor dentition, lactating. MRI negative for pituitary mass. - Severe electrolyte abnormalities/hypokalemia. Per primary - Lupus, bipolar disorder per attending 3-6-17 still constipated, EGD showed sever gastritis and esophagitis, colon showed significant solid stool throughout the colon all the way to right colon PLAN: - Clear liquids - mag citrate BID for 3 days - PPI - Cont. abx - Carafate - Transfuse as needed - Notify GI for active bleed - Supportive care Alvarado Lucero MD Jan 09, 2017 18:25
[2017-01-09] MEDS ORDERED: MAGNESIUM CITRATE SOLN 300 ML BTL PO ONE (18:30)
[2017-01-09] MEDS: ZOLPIDEM TARTRATE 10 MG TAB PO PRN (20:50)
[2017-01-10] VITALS (14 sets, daily range): BP systolic 139–181; BP diastolic 64–115; PULSE 68–109; RESP 14–38; TEMP 98.1–99.2; O2SAT 96–100
[2017-01-10] MEDS: HYDROCORTISONE SOD SUCCINATE 100 MG VIAL IV PUSH SCH ×3 (01:19→16:34)
[2017-01-10] MEDS: MORPHINE SULFATE 4 MG/ML INJ IV PUSH PRN ×4 (01:20→20:29)
[2017-01-10 01:28] LABS: POTASSIUM 2.6 MEQ/L (3.5-5.1)
[2017-01-10] MEDS: POTASSIUM PHOSPHATE MONOBASIC 500 MG TAB PO PRN (01:54)
[2017-01-10] MEDS: POTASSIUM CHLOR 20 MEQ PREMIX 100 ML IV PRN ×3 (01:55→10:55)
[2017-01-10] MEDS: INSULIN NovoLIN REGULAR SUPPLEMENTAL SCALE SQ SCH ×6 (03:00→23:00)
[2017-01-10] MEDS: SUCRALFATE 1 GM/10 ML CUP PO SCH ×4 (05:19→20:28)
[2017-01-10] MEDS: LEVOTHYROXINE SODIUM 25 MCG TAB PO SCH (05:19)
[2017-01-10 05:59] LABS: HEMATOCRIT 28.5 % (35.0-46.0); MEAN CELL VOLUME 86.6 FL (80.0-100.0); MEAN CORPUSCULAR HEMOGLOBIN 28.3 PG (27.0-34.0); MEAN CORPUSCULAR HGB CONC 32.7 % (32.0-36.0); PLATELET COUNT 295 TH/MM3 (150-450); RED BLOOD COUNT 3.29 MIL/MM3 (4.00-5.30); REVIEW FLAG FINAL; WHITE BLOOD COUNT 12.3 TH/MM3 (4.0-11.0)
[2017-01-10 06:28] LABS: BICARBONATE 24.6 MEQ/L (21.0-32.0); MAGNESIUM 2.1 MG/DL (1.5-2.5); POTASSIUM 3.1 MEQ/L (3.5-5.1)
[2017-01-10] MEDS: PANTOPRAZOLE SODIUM 40 MG VIAL IV SCH (08:33)
[2017-01-10] MEDS: MAGNESIUM OXIDE 400 MG TAB PO SCH ×2 (08:33→20:29)
[2017-01-10] MEDS: SODIUM CHLORIDE 0.9% FLUSH 5 ML FLUSH IV FLUSH SCH ×2 (08:33→20:30)
[2017-01-10] MEDS: POTASSIUM CL 40 MEQ/30 ML LIQ UDC NG SCH (09:00)
--- NOTE | 2017-01-10 09:12 | HHI.PR ---
Subjective Remarks This is a pleasant 41 y/o Female with multiple admissions to ICU for severe hypokalemia, as per patient during the last 18 months she is been in Intensive care for eight months, Her symptoms she states started back in July or August of last year where she noticed hair loss, weight loss, fatigue, nausea, vomiting, diarrhea. unintentional has Gastroparesis, Ulcerative Colitis, Lupus, Bipolar disorder, tingling sensation on hands and feet, started to lactate and she is non . Critical Care notes. 01/04 Patient is lying in bed in NAD. Afebrile. K level 1.5 this morning. / No acute events overnight. Awake and alert. K 2.2 today 01/06 Patient is lying in bed in NAD. K 2.6 this morning. 01/07 No acute events overnight. Afebrile. 01/09 patient seen in her bedroom in Intensive care unit asked to continue management by Hospitalist, discussed with Nurse Mr. Santos, CT abdomen Normal. last year had Colonoscopy showed colonic ulcer, asked for new EGD and Colonoscopy later today, has Anemia GI specialist recommended transfusion as needed, Nephrology specialist following for Acute Kidney injury and severe hypokalemia, EGD showed severe Gastritis and Esophagitis, was not possible to perform the Colonoscopy recommended to continue antibiotics, Carafate, PPI, Magnesium Citrate Doctor Alvarado Lucero following for GI, appreciated. 01/10 Patient stable seen and discussed with nurse Mr. Santos appreciated, patient frustrated wanted me to see some pictures in her phone. continue replacement will have her Colonoscopy once colon prep Objective Vital Signs Date Time Temp Pulse Resp B/P Pulse Ox O2 Delivery O2 Flow Rate FiO2 01/10/17 06:00 74 01/10/17 04:00 73 01/10/17 04:00 98.3 73 20 142/67 99 01/10/17 02:00 90 01/10/17 00:00 81 01/10/17 00:00 99.2 81 20 139/64 100 01/09/17 22:00 93 01/09/17 20:00 98.2 61 16 162/77 100 01/09/17 20:00 61 01/09/17 18:15 62 16 120/81 98 Room Air 01/09/17 18:00 78 01/09/17 18:00 76 16 114/80 97 Room Air 01/09/17 17:54 98.5 76 16 115/81 98 01/09/17 16:03 77 01/09/17 16:00 01/09/17 14:00 60 01/09/17 12:00 98.7 62 13 148/73 100 01/09/17 12:00 62 01/09/17 10:00 56 I/O 01/09/17 01/09/17 01/09/17 01/10/17 01/10/17 01/10/17 07:00 15:00 23:00 07:00 15:00 23:00 Intake Total 2744 ml 1380 ml 813 ml 838 ml Output Total 1550 ml 1400 ml 1850 ml 1300 ml Balance 1194 ml -20 ml -1037 ml -462 ml Intake Oral 2000 ml 0 ml 500 ml 100 ml IV Total 744 ml 1380 ml 313 ml 738 ml Output Urine Total 1550 ml 1400 ml 1850 ml 1300 ml # Bowel Movements 1 1 1 1 Result Diagram: 01/10/17 0534 01/10/17 0534 Imaging Last Impressions Brain MRI 01/07/17 1032 Signed Impressions: Service Date/Time: Saturday, January 07, 2017 10:57 - CONCLUSION: No intracranial abnormality is identified. No pituitary gland mass is seen. Brian Zhou MD Thyroid Ultrasound 01/04/17 0000 Signed Impressions: Service Date/Time: Wednesday, January 04, 2017 11:43 - CONCLUSION: Scattered small cystic areas in both lobes of thyroid. Nathaniel Porter MD FACR Renal Ultrasound 01/03/17 1218 Signed Impressions: Service Date/Time: Tuesday, January 03, 2017 12:35 - CONCLUSION: Normal examination except for slight increased echogenicity to both renal cortices suggesting mild chronic medical renal disease. Feliz Leung MD Chest X-Ray 01/03/17 0000 Signed Impressions: Service Date/Time: Tuesday, January 03, 2017 09:34 - CONCLUSION: Normal examination. Feliz Leung MD Abdomen/Pelvis CT 01/03/17 0000 Signed Impressions: Service Date/Time: Tuesday, January 03, 2017 09:49 - CONCLUSION: Normal examination. Dense stool throughout distended colon Feliz Leung MD Procedures EGD showed Severe Gastritis and Esophagitis. Other Results Laboratory Tests Test 01/03/17 01/04/17 01/06/17 01/06/17 17:11 14:34 04:59 09:00 Methylmalonic Acid 0.31 nmol/mL Prolactin 20.4 ng/mL Anti-Nuclear Antibody Screen NEG Thyroglobulin Antibody LESS THAN 1 IU/mL Thyroid Peroxidase Antibodies LESS THAN 1 IU/mL Lipase 338 U/L Urine Total Volume 24 Hours 1450 ML Urine Potassium 24 Hour 55 MEQ/24HR Urine Magnesium 24 Hour 21 mg/24 h Test 01/08/17 01/09/17 01/10/17 01/10/17 04:56 05:05 00:03 05:34 Nucleated Red Blood Cells 1 /100 WBC Neutrophils (%) (Auto) 77.1 % Lymphocytes (%) (Auto) 14.3 % Monocytes (%) (Auto) 8.2 % Eosinophils (%) (Auto) 0.3 % Basophils (%) (Auto) 0.1 % Neutrophils # (Auto) 11.1 TH/MM3 Lymphocytes # (Auto) 2.1 TH/MM3 Monocytes # (Auto) 1.2 TH/MM3 Eosinophils # (Auto) 0.0 TH/MM3 Basophils # (Auto) 0.0 TH/MM3 CBC Comment AUTO DIFF Differential Total Cells 100 Counted Neutrophils % (Manual) 74 % Band Neutrophils % 3 % Lymphocytes % 14 % Monocytes % 4 % Eosinophils % 1 % Basophils % 1 % Neutrophils # (Manual) 11.5 TH/MM3 Metamyelocytes 1 % Myelocytes 2 % Differential Comment FINAL DIFF MANUAL Platelet Estimate NORMAL Platelet Morphology Comment NORMAL Ovalocytes 1+ Total Bilirubin 0.2 MG/DL Aspartate Amino Transf 15 U/L (AST/SGOT) Alanine Aminotransferase 14 U/L (ALT/SGPT) Alkaline Phosphatase 41 U/L Total Protein 5.4 GM/DL Albumin 2.8 GM/DL Phosphorus Level 0.9 MG/DL White Blood Count 12.3 TH/MM3 Red Blood Count 3.29 MIL/MM3 Hemoglobin 9.3 GM/DL Hematocrit 28.5 % Mean Corpuscular Volume 86.6 FL Mean Corpuscular Hemoglobin 28.3 PG Mean Corpuscular Hemoglobin 32.7 % Concent Red Cell Distribution Width 16.0 % Platelet Count 295 TH/MM3 Mean Platelet Volume 7.2 FL Sodium Level 139 MEQ/L Potassium Level 3.1 MEQ/L Chloride Level 106 MEQ/L Carbon Dioxide Level 24.6 MEQ/L Anion Gap 8 MEQ/L Blood Urea Nitrogen 12 MG/DL Creatinine 0.71 MG/DL Estimat Glomerular Filtration 91 ML/MIN Rate Random Glucose 102 MG/DL Calcium Level 7.9 MG/DL Magnesium Level 2.1 MG/DL Objective Remarks GENERAL: Patient is lying in bed in NAD HEENT: Normocephalic. Atraumatic. Pupils equal, round, reactive, conjugate. NECK: Neck is midline. There is no JVD. CHEST: Equal chest rise. Clear to auscultation bilaterally. CARDIOVASCULAR: Heart rate, regular rhythm. S1 and S2 without appreciable murmurs. ABDOMEN: Soft, mild tenderness on palpitation, no guarding or rebound. MUSCULOSKELETAL: Distal pulses 2+ no peripheral edema. NEUROLOGICAL: RASS 0. Subjectively she has decreased sensation to fine touch in a stocking distribution over her dorsum hands and feet. Otherwise grossly neuro intact. Medications and IVs Current Medications Medications (Trade) Dose Ordered Sig/Osito Route Start Time Stop Time Status Last Admin (NS Flush) 2 ml UNSCH PRN IV FLUSH 01/03/17 12:00 01/04/17 22:23 (NS Flush) 2 ml BID IV FLUSH 01/03/17 21:00 01/10/17 08:33 (Protonix Inj) 40 mg DAILY IV 01/04/17 09:00 01/10/17 08:33 (Zofran Inj) 4 mg Q6H PRN IV 01/03/17 12:00 01/08/17 22:29 (Heparin Inj) 5,000 units Q8H SQ 01/03/17 12:00 Hold 01/08/17 20:06 Miscellaneous Information 1 Q361D XX 01/03/17 12:00 (Chlorhexidine 2% Cloth) Taper DAILY@04 TOP 01/04/17 04:00 12/31/17 03:59 01/09/17 01:58 Chlorhexidine Gluconate 3 pack 3 pack UNSCH PRN TOP 01/03/17 12:00 Potassium Chloride 100 ml @ 50 mls/hr Q2H PRN IV 01/04/17 09:45 (KCl 20 Meq Premix Inj) 100 ml @ 50 mls/hr Q2H PRN IV 01/04/17 09:45 01/10/17 06:42 Potassium Chloride 40 meq 40 meq UNSCH PRN PO/TUBE 01/04/17 09:45 Potassium Chloride 100 ml @ 25 mls/hr UNSCH PRN IV 01/04/17 09:45 Potassium Chloride 100 ml @ 50 mls/hr Q2H PRN IV 01/04/17 09:45 01/04/17 10:34 (Magnesium Sulfate Inj/NS Inj) 100 ml @ 50 mls/hr UNSCH PRN IV 01/04/17 09:45 Magnesium Oxide 800 mg 800 mg UNSCH PRN PO 01/04/17 09:45 (Magnesium Sulfate Inj/NS Inj) 100 ml @ 50 mls/hr UNSCH PRN IV 01/04/17 09:45 Potassium Phosphate 2000 mg 2,000 mg Q4H PRN PO 01/04/17 09:45 01/10/17 01:54 (Sodium Phosphate Inj/NS 250 ml Inj) 250 ml @ 42 mls/hr UNSCH PRN IV 01/04/17 09:45 (KCl 40 Meq/30 ml Liq) 40 meq UNSCH PRN PO/TUBE 01/04/17 09:45 01/08/17 21:34 Potassium Phosphate 2000 mg 2,000 mg UNSCH PRN PO/TUBE 01/04/17 09:45 01/08/17 21:54 (Potassium Phosphate Inj/NS 250 ml Inj) 260 ml @ 42 mls/hr UNSCH PRN IV 01/04/17 09:45 01/08/17 10:15 (D50w (Vial) Inj) 25 ml UNSCH PRN IV PUSH 01/04/17 10:45 (Glucagon Inj) 1 mg UNSCH PRN OTHER 01/04/17 10:45 (NovoLIN R SUPPLEMENTAL SCALE) 1 Q4H SQ 01/04/17 11:00 01/10/17 03:00 (Morphine Inj) 1 mg Q4H PRN IV PUSH 01/04/17 11:00 01/10/17 05:19 (Carafate Liq) 1 gm ACHS PO 01/06/17 16:00 01/10/17 05:19 (Mag-Ox) 400 mg Q12HR PO 01/07/17 21:00 01/10/17 08:33 (KCl 40 Meq/30 ml Liq) 40 meq DAILY NG 01/08/17 09:00 01/08/17 08:18 (Ambien) 10 mg HS PRN PO 01/08/17 21:00 01/09/17 20:50 (Synthroid) 25 mcg DAILY@0600 PO 01/08/17 08:15 01/10/17 05:19 Hydrocortisone Sodium Succinate 50 mg 50 mg Q8H IV PUSH 01/08/17 09:00 01/10/17 08:33 (KCl Inj/Sodium Chloride 23.4% Inj/Sterile Water For Inj) 1,029.625 ml @ 42 mls/hr Q24H IV 01/09/17 11:00 01/09/17 10:55 Miscellaneous Information ALL NURSING DEPARTME... UNSCH PRN XX 01/09/17 17:55 01/10/17 17:54 A/P Assessment and Plan 1. Electrolyte derangement/severe Hypokalemia no clear etiology continue replacement. has also Phosphorus depletion receiving replacement. 2. Acute Kidney Injury Improved Nephrology specialist following. 3. Intractable nausea and vomit/Chronic abdominal pain, GI specialist following EGD performed on Colon prep for Colonoscopy. 4. Anemia transfuse as needed. 5. Chronic Abdominal pain EGD found Severe esophagitis and gastritis, continue Carafate and PPIs 6. Bipolar Disorder and Anxiety Disorder.MRI no acute abnormalities, no Pituitary mass Cleared for discharge by Psychiatry specialist. 7. Was on Empiric antibiotic management but no signs of infection was on Aztreonam and Flagyl Leukocytosis may be related to Steroid use, blood cultures negative. 8. Euthyroid Sick syndrome US thyroid showed Small Cystic Areas in both lobes of thyroid. thyroid peroxidase ab, ELLE negative. on Steroids to continue tapering. on Levothyroxine 9. Leukocytosis Steroid related. SCDs, SQ Heparin for DVT prophylaxis Protonix for GI prophylaxis Discharge Planning Not yet cleared by GI specialist or Nephrology. Romaine Rubio MD Jan 10, 2017 09:12
--- NOTE | 2017-01-10 09:51 | HHI.GIFU ---
Subjective Remarks Reports that she had one small skinny bowel movement earlier this morning. Having significant odynophagia. Also complains of persistent abdominal pain. Objective Vitals I&O Vital Signs Date Time Temp Pulse Resp B/P Pulse Ox O2 Delivery O2 Flow Rate FiO2 01/10/17 06:00 74 01/10/17 04:00 73 01/10/17 04:00 98.3 73 20 142/67 99 01/10/17 02:00 90 01/10/17 00:00 81 01/10/17 00:00 99.2 81 20 139/64 100 01/09/17 22:00 93 01/09/17 20:00 98.2 61 16 162/77 100 01/09/17 20:00 61 01/09/17 18:15 62 16 120/81 98 Room Air 01/09/17 18:00 78 01/09/17 18:00 76 16 114/80 97 Room Air 01/09/17 17:54 98.5 76 16 115/81 98 01/09/17 16:03 77 01/09/17 16:00 01/09/17 14:00 60 01/09/17 12:00 98.7 62 13 148/73 100 01/09/17 12:00 62 01/09/17 10:00 56 I/O 01/09/17 01/09/17 01/09/17 01/10/17 01/10/17 01/10/17 07:00 15:00 23:00 07:00 15:00 23:00 Intake Total 2744 ml 1380 ml 813 ml 838 ml Output Total 1550 ml 1400 ml 1850 ml 1300 ml Balance 1194 ml -20 ml -1037 ml -462 ml Intake Oral 2000 ml 0 ml 500 ml 100 ml IV Total 744 ml 1380 ml 313 ml 738 ml Output Urine Total 1550 ml 1400 ml 1850 ml 1300 ml # Bowel Movements 1 1 1 1 Laboratory Laboratory Tests Test 01/10/17 01/10/17 00:03 05:34 Potassium Level 2.6 3.1 Phosphorus Level 0.9 White Blood Count 12.3 Red Blood Count 3.29 Hemoglobin 9.3 Hematocrit 28.5 Mean Corpuscular Volume 86.6 Mean Corpuscular Hemoglobin 28.3 Mean Corpuscular Hemoglobin 32.7 Concent Red Cell Distribution Width 16.0 Platelet Count 295 Mean Platelet Volume 7.2 Sodium Level 139 Chloride Level 106 Carbon Dioxide Level 24.6 Anion Gap 8 Blood Urea Nitrogen 12 Creatinine 0.71 Estimat Glomerular Filtration 91 Rate Random Glucose 102 Calcium Level 7.9 Magnesium Level 2.1 Imaging Last Impressions Brain MRI 01/07/17 1032 Signed Impressions: Service Date/Time: Saturday, January 07, 2017 10:57 - CONCLUSION: No intracranial abnormality is identified. No pituitary gland mass is seen. Brian Zhou MD Thyroid Ultrasound 01/04/17 0000 Signed Impressions: Service Date/Time: Wednesday, January 04, 2017 11:43 - CONCLUSION: Scattered small cystic areas in both lobes of thyroid. Nathaniel Porter MD FACR Renal Ultrasound 01/03/17 1218 Signed Impressions: Service Date/Time: Tuesday, January 03, 2017 12:35 - CONCLUSION: Normal examination except for slight increased echogenicity to both renal cortices suggesting mild chronic medical renal disease. Feliz Leung MD Chest X-Ray 01/03/17 0000 Signed Impressions: Service Date/Time: Tuesday, January 03, 2017 09:34 - CONCLUSION: Normal examination. Feliz Leung MD Abdomen/Pelvis CT 01/03/17 0000 Signed Impressions: Service Date/Time: Tuesday, January 03, 2017 09:49 - CONCLUSION: Normal examination. Dense stool throughout distended colon Feliz Leung MD Physical Exam HEENT: Normocephalic; atraumatic; no jaundice. CHEST: Chest is clear to auscultation and percussion. CARDIAC: RRR ABDOMEN: Soft, nondistended, moderate lower abdominal tenderness; no hepatosplenomegaly; bowel sounds are present in all four quadrants. EXTREMITIES: No clubbing, cyanosis, or edema. SKIN: Normal; no rash; no jaundice. COPPER MINER BLASTING: No focal deficits; alert and oriented times three. Assessment and Plan Plan ASSESSMENT: - Abdominal pain. Abdomen/Pelvis CT (01/03/17)---> CT Normal examination. Dense stool throughout distended colon Her pain is a constant sharp diffuse abdominal pain aggravated by movement, food, breathing, and lying flat. S/P EGD/Colonoscopy (04/22/16)---> gastritis, irregular z line, very poor prep. Colonoscopy on (04/25/16) showed colonic ulcer, bx acute colitis. S/P EGD/Colonoscopy (01/09/17)---> severe gastritis, Esophagitis, patient had solid stool in her colon all the way to the right side of the colon. She continues to have abdominal pain. PPI - Anemia. No active bleeding at this time. H&H 9.3/28.5. - Severe constipation with overflow diarrhea. Plan is for Magnesium Citrate BID x 3 days. Of note, patient refused last night's dose. - Hematochezia, questionable ulcerative colitis, not on any medications. No bleeding today. - N/V, Severe GERD/? gastroparesis. PPI. - Alternating constipation and diarrhea. States no bm yet today. - Abn. Wt. Loss with 100 ib weight loss since November of last year. CT as above. - Acute kidney injury nephrology on the case - Hair loss, poor dentition, lactating. MRI negative for pituitary mass. - Severe electrolyte abnormalities/hypokalemia. Per primary - Lupus, bipolar disorder per attending PLAN: - Full liquids - Magnesium Citrate BID x 3 days - Cont. PPI - Cont. Abx - Cont. Carafate - Transfuse as needed - Notify GI for active bleed - Electrolyte replacement per primary - Supportive care - Pt seen and examined by Dr. Lucero and myself and this note is written on his behalf Oneida Fraga Jan 10, 2017 09:51
[2017-01-10] MEDS: POTASSIUM CHLORIDE INJ 40 MEQ in SODIUM CHLOR 0.45% 1000 ML INJ 1,000 ML IV SCH (10:53)
--- NOTE | 2017-01-10 11:30 | HHI.NPPN ---
Subjective Complaints: Abdominal Pain Renal Failure: Acute Interval History Potassium is correcting. Still with normal renal function. (Lissette Padilla) Review of Systems General Constitutional: Fatigue (Lissette Padilla) Objective Data Data 01/09/17 01/10/17 19:00 07:00 Intake Total 1430 ml 1601 ml Output Total 2800 ml 1750 ml Balance -1370 ml -149 ml Intake Oral 0 ml 600 ml IV Total 1430 ml 1001 ml Output Urine Total 2800 ml 1750 ml # Bowel Movements 1 2 Vital Signs Date Time Temp Pulse Resp B/P Pulse Ox O2 Delivery O2 Flow Rate FiO2 01/10/17 06:00 74 01/10/17 04:00 73 01/10/17 04:00 98.3 73 20 142/67 99 01/10/17 02:00 90 01/10/17 00:00 81 01/10/17 00:00 99.2 81 20 139/64 100 01/09/17 22:00 93 01/09/17 20:00 98.2 61 16 162/77 100 01/09/17 20:00 61 01/09/17 18:15 62 16 120/81 98 Room Air 01/09/17 18:00 78 01/09/17 18:00 76 16 114/80 97 Room Air 01/09/17 17:54 98.5 76 16 115/81 98 01/09/17 16:03 77 01/09/17 16:00 01/09/17 14:00 60 01/09/17 12:00 98.7 62 13 148/73 100 01/09/17 12:00 62 (Lissette Padilla) -: 01/10/17 0534 01/10/17 0534 Physical Exam General Appearance: No Acute Distress, Comfortable, Malnourished (Lissette Padilla) Eyes Eye Exam: Pupils Equal (Lissette Padilla) Throat Throat Remarks poor dentition (Lissette Padilla) Pulmonary Resp Exam: Clear Bilaterally, Breath Sounds Equal, No Distress (Lissette Padilla) Cardiology CV Exam: Regular, Normal Sinus Rhythm (Lissette Padilla) Gastrointestinal/Abdomen GI Exam: Soft, Bowel Sounds Present GI Remarks slightly tender (Lissette Padilla) Genitourinary Exam: Clear Urine (Lissette Padilla) Musculoskeletal MS Exam: Joints Intact, Normal Tone (Lissette Padilla) Integumentary Skin Exam: Clear, Warm, Dry, Intact (Lissette Padilla) Extremeties Extremities Exam: No Edema, Pedal Pulses Palpable (Lissette Padilla) Neurologic Neuro Exam: Alert, Awake, Oriented, Speech Clear, Moving All Extremities ( Lissette Padilla) Psychiatric Psych Exam: Appropriate Responses (Lissette Padilla) Assessment/Plan Discussed Condition With: Patient Assessment Summary: SHABANA/Acute Renal Failure, Dehydration Electrolyte Assessment: Hypokalemia Problem List: (1) Hypokalemia Plan: slowly correcting; continue IV and PO correction with serial monitoring unknown etiology, this is chronic as she has been seen multiple admission for the same 24 hr urine for K and Mag is not high, no renal wasting she may have an eating disorder that explains the hypokalemia; possibility of GI losses are being evaluated EGD yesterday showing gastritis and esophagitis (2) SHABANA (acute kidney injury) Plan: resolved, renal function is stable acidosis corrected on IVF with K, continue to replace per above ELLE negative, she reported possible lupus aparicio was removed without retention or issues (3) Metabolic acidosis Plan: corrected, off bicarb; monitor metabolic panel (4) Dehydration Plan: improving with IVF, continue and monitor response she is on 1/2 NS with KCL added Plan renal causes of her hypokalemia have been ruled out. she has normal renal function; continue replacement, we will sign off at this time; please reconsult us if necessary (Lissette Padilla) Plan patient was seen and examined. Continue to replace potassium. Change IVF to 1/ 2NS with potassium. Renal function has normalized. We will see as needed. Thanks. (Quirino Valenzuela MD) Lissette Padilla Jan 10, 2017 11:30 Quirino Valenzuela MD Jan 10, 2017 16:29
--- NOTE | 2017-01-10 12:11 | MR ---
cc: CATRINA LUCERO M.D. DATE OF 1975 DATE OF SERVICE 01/09/2017 PROCEDURE Upper gastrointestinal endoscopy with biopsy and colonoscopy. ENDOSCOPIST Dr. Lucero MEDICATIONS Propofol administered by Anesthesia. INDICATION A 41-year-old lady who has abdominal pain. PROCEDURE After informing the patient about the procedure and complications, consent was signed. The patient was placed on her left lateral decubitus. Adequate sedation was achieved by propofol. The scope was placed in the mouth, advanced under video guidance to the second portion of the duodenum. The scope was drawn back to the stomach. Retroflexion was performed. Biopsy from the antrum and lesser curve, then the scope drawn back without immediate complication. After that rectal exam was performed. The scope was placed in the rectum, advanced under video guidance to the cecum which was identified by the ileocecal valve and appendiceal orifice. The scope was drawn back gradually with visualization of the colonic mucosa down to the rectum. Retroflexion was performed and the scope drawn back without any immediate complication. FINDINGS 1. Esophagus - Severe esophagitis. Biopsy was done, grade D. 2. Stomach - Gastritis. Biopsy was done. 3. In the colon there was significant amount of stool throughout the colon, hard, solid, as if the patient did not take any prep. I was able to go all the way to the ascending colon and visualized the ileocecal valve and possibly the appendiceal orifice, but I was not able to evaluate if there are small polyps. The mucosa looks normal but there was significant solid stool throughout the colon. Most likely the patient did not take the whole prep or she had severe impaction. RECOMMENDATIONS 1. No NSAIDs. 2. Protonix 40 mg daily. 3. Follow-up biopsy. 4. The patient will need on laxatives until she moves her bowels and most likely that will help her pain. MD ARNULFO Ortez/LILY /6:20 PM /12:02 PM
[2017-01-10] MEDS: ZOLPIDEM TARTRATE 10 MG TAB PO PRN (20:29)
[2017-01-10] MEDS: MAGNESIUM CITRATE SOLN 300 ML BTL PO SCH (20:29)
[2017-01-10 23:43] LABS: POTASSIUM 3.9 MEQ/L (3.5-5.1)
[2017-01-11] VITALS (14 sets, daily range): BP systolic 128–165; BP diastolic 73–91; PULSE 68–110; RESP 12–27; TEMP 98.2–100; O2SAT 98–100
[2017-01-11] MEDS: HYDROCORTISONE SOD SUCCINATE 100 MG VIAL IV PUSH SCH ×3 (01:34→17:11)
[2017-01-11] MEDS: POTASSIUM PHOSPHATE MONOBASIC 500 MG TAB PO PRN ×3 (01:34→20:20)
[2017-01-11] MEDS: MORPHINE SULFATE 4 MG/ML INJ IV PUSH PRN ×6 (01:35→22:08)
[2017-01-11] MEDS: INSULIN NovoLIN REGULAR SUPPLEMENTAL SCALE SQ SCH ×6 (03:00→22:08)
[2017-01-11] MEDS: CHLORHEXIDINE GLUCONATE 2 % 1 PACK (2 CLOTHS) TOP SCH (04:00)
[2017-01-11] MEDS: SODIUM CHLORIDE 0.9% FLUSH 5 ML FLUSH IV FLUSH PRN (05:22)
[2017-01-11] MEDS: LEVOTHYROXINE SODIUM 25 MCG TAB PO SCH (05:22)
[2017-01-11 05:58] LABS: POTASSIUM 3.3 MEQ/L (3.5-5.1)
[2017-01-11] MEDS: SUCRALFATE 1 GM/10 ML CUP PO SCH ×4 (07:30→20:20)
[2017-01-11] MEDS: POTASSIUM CL 40 MEQ/30 ML LIQ UDC NG SCH (09:00)
[2017-01-11] MEDS: MAGNESIUM OXIDE 400 MG TAB PO SCH ×2 (09:44→20:20)
[2017-01-11] MEDS: MAGNESIUM CITRATE SOLN 300 ML BTL PO SCH ×2 (09:44→20:19)
[2017-01-11] MEDS: PANTOPRAZOLE SODIUM 40 MG VIAL IV SCH (09:44)
[2017-01-11] MEDS: POTASSIUM CHLORIDE INJ 40 MEQ in SODIUM CHLOR 0.45% 1000 ML INJ 1,000 ML IV SCH (09:44)
[2017-01-11] MEDS: SODIUM CHLORIDE 0.9% FLUSH 5 ML FLUSH IV FLUSH SCH ×2 (09:45→20:20)
[2017-01-11] MEDS: ONDANSETRON HCL 4 MG/2 ML VIAL IV PRN ×2 (10:31→17:11)
--- NOTE | 2017-01-11 15:03 | HHI.GIFU ---
Subjective Remarks Resting in bed. Cont. to have abdominal pain. States she has taken 3 bottles of Magnesium Citrate, but has not had any bowel movement after these. No bleeding. Objective Vitals I&O Vital Signs Date Time Temp Pulse Resp B/P Pulse Ox O2 Delivery O2 Flow Rate FiO2 01/11/17 08:29 100 01/11/17 06:00 73 01/11/17 05:49 16 01/11/17 04:00 98.6 89 27 139/82 100 01/11/17 04:00 89 01/11/17 02:00 98 01/11/17 00:00 98.2 87 22 165/86 100 01/11/17 00:00 87 01/10/17 22:00 99 01/10/17 20:00 98.4 79 14 160/93 100 01/10/17 20:00 79 01/10/17 19:04 100 21 01/10/17 18:00 89 01/10/17 16:00 98.7 93 17 154/80 100 01/10/17 16:00 93 I/O 01/10/17 01/10/17 01/10/17 01/11/17 01/11/17 01/11/17 07:00 15:00 23:00 07:00 15:00 23:00 Intake Total 838 ml 850 ml 1592 ml 531 ml Output Total 1300 ml 800 ml Balance -462 ml 50 ml 1592 ml 531 ml Intake Oral 100 ml 200 ml 1000 ml 240 ml IV Total 738 ml 650 ml 592 ml 291 ml Output Urine Total 1300 ml 800 ml # Voids 4 3 # Bowel Movements 1 2 1 0 Laboratory Laboratory Tests Test 01/10/17 01/11/17 22:57 05:05 Potassium Level 3.9 3.3 Phosphorus Level 1.4 1.8 Imaging Last Impressions Brain MRI 01/07/17 1032 Signed Impressions: Service Date/Time: Saturday, January 07, 2017 10:57 - CONCLUSION: No intracranial abnormality is identified. No pituitary gland mass is seen. Brian Zhou MD Thyroid Ultrasound 01/04/17 0000 Signed Impressions: Service Date/Time: Wednesday, January 04, 2017 11:43 - CONCLUSION: Scattered small cystic areas in both lobes of thyroid. Nathaniel Porter MD FACR Renal Ultrasound 01/03/17 1218 Signed Impressions: Service Date/Time: Tuesday, January 03, 2017 12:35 - CONCLUSION: Normal examination except for slight increased echogenicity to both renal cortices suggesting mild chronic medical renal disease. Feliz Leung MD Chest X-Ray 01/03/17 0000 Signed Impressions: Service Date/Time: Tuesday, January 03, 2017 09:34 - CONCLUSION: Normal examination. Feliz Leung MD Abdomen/Pelvis CT 01/03/17 0000 Signed Impressions: Service Date/Time: Tuesday, January 03, 2017 09:49 - CONCLUSION: Normal examination. Dense stool throughout distended colon Feliz Leung MD Physical Exam HEENT: Normocephalic; atraumatic; no jaundice. CHEST: Chest is clear to auscultation and percussion. CARDIAC: RRR ABDOMEN: Soft, nondistended, moderate lower abdominal tenderness; no hepatosplenomegaly; bowel sounds are present in all four quadrants. EXTREMITIES: No clubbing, cyanosis, or edema. SKIN: Normal; no rash; no jaundice. [employer]: No focal deficits; alert and oriented times three. Assessment and Plan Plan ASSESSMENT: - Abdominal pain. Abdomen/Pelvis CT (01/03/17)---> CT Normal examination. Dense stool throughout distended colon Her pain is a constant sharp diffuse abdominal pain aggravated by movement, food, breathing, and lying flat. S/P EGD/Colonoscopy (04/22/16)---> gastritis, irregular z line, very poor prep. Colonoscopy on (04/25/16) showed colonic ulcer, bx acute colitis. S/P EGD/Colonoscopy (01/09/17)---> severe gastritis, Esophagitis, patient had solid stool in her colon all the way to the right side of the colon. She continues to have abdominal pain. PPI - Anemia. No active bleeding at this time. H&H stable. - Severe constipation with overflow diarrhea. Magnesium Citrate BID x 3 days. No bm yet. Will get SSE x 2. - Hematochezia, questionable ulcerative colitis, not on any medications. No bleeding today. - N/V, Severe GERD/? gastroparesis. PPI. - Alternating constipation and diarrhea. States no bm yet today. - Abn. Wt. Loss with 100 ib weight loss since November of last year. CT as above. - Acute kidney injury nephrology on the case - Hair loss, poor dentition, lactating. MRI negative for pituitary mass. - Severe electrolyte abnormalities/hypokalemia. Per primary - Lupus, bipolar disorder per attending PLAN: - Full liquids - SSE x 2 - Magnesium Citrate BID x 3 days total - Cont. PPI - Cont. Abx - Cont. Carafate - Transfuse as needed - Notify GI for active bleed - Electrolyte replacement per primary - Supportive care - Pt seen and examined by Dr. Lucero and myself and this note is written on his behalf Oneida Fraga Jan 11, 2017 15:03
--- NOTE | 2017-01-11 17:40 | HHI.PR ---
Subjective Remarks This is a pleasant 41 y/o Female with multiple admissions to ICU for severe hypokalemia, as per patient during the last 18 months she is been in Intensive care for eight months, Her symptoms she states started back in July or August of last year where she noticed hair loss, weight loss, fatigue, nausea, vomiting, diarrhea. unintentional has Gastroparesis, Ulcerative Colitis, Lupus, Bipolar disorder, tingling sensation on hands and feet, started to lactate and she is non . Critical Care notes. 01/04 Patient is lying in bed in NAD. Afebrile. K level 1.5 this morning. / No acute events overnight. Awake and alert. K 2.2 today 01/06 Patient is lying in bed in NAD. K 2.6 this morning. 01/07 No acute events overnight. Afebrile. 01/09 patient seen in her bedroom in Intensive care unit asked to continue management by Hospitalist, discussed with Nurse Mr. Santos, CT abdomen Normal. last year had Colonoscopy showed colonic ulcer, asked for new EGD and Colonoscopy later today, has Anemia GI specialist recommended transfusion as needed, Nephrology specialist following for Acute Kidney injury and severe hypokalemia, EGD showed severe Gastritis and Esophagitis, was not possible to perform the Colonoscopy recommended to continue antibiotics, Carafate, PPI, Magnesium Citrate Doctor Alvarado Lucero following for GI, appreciated. 01/10 Patient stable seen and discussed with nurse Mr. Santos appreciated, patient frustrated wanted me to see some pictures in her phone. continue replacement will have her Colonoscopy once colon prep 01/11 seen in her bedroom in the presence of nurse Kennedi today potassium 3.3, Phosphorus 1.8 replacing, encourage activity. Objective Vital Signs Date Time Temp Pulse Resp B/P Pulse Ox O2 Delivery O2 Flow Rate FiO2 01/11/17 16:00 80 01/11/17 14:00 89 01/11/17 12:00 99.3 79 27 144/91 100 01/11/17 12:00 79 01/11/17 10:00 110 01/11/17 08:29 100 01/11/17 08:00 68 01/11/17 08:00 98.7 68 14 147/90 99 01/11/17 06:00 73 01/11/17 05:49 16 01/11/17 04:00 98.6 89 27 139/82 100 01/11/17 04:00 89 01/11/17 02:00 98 01/11/17 00:00 98.2 87 22 165/86 100 01/11/17 00:00 87 01/10/17 22:00 99 01/10/17 20:00 98.4 79 14 160/93 100 01/10/17 20:00 79 01/10/17 19:04 100 21 01/10/17 18:00 89 I/O 01/10/17 01/10/17 01/10/17 01/11/17 01/11/17 01/11/17 07:00 15:00 23:00 07:00 15:00 23:00 Intake Total 838 ml 850 ml 1592 ml 531 ml 504 ml Output Total 1300 ml 800 ml 900 ml Balance -462 ml 50 ml 1592 ml 531 ml -396 ml Intake Oral 100 ml 200 ml 1000 ml 240 ml 360 ml IV Total 738 ml 650 ml 592 ml 291 ml 144 ml Output Urine Total 1300 ml 800 ml 900 ml # Voids 4 3 # Bowel Movements 1 2 1 0 0 Result Diagram: 01/10/17 0534 01/11/17 0505 Imaging Last Impressions Brain MRI 01/07/17 1032 Signed Impressions: Service Date/Time: Saturday, January 07, 2017 10:57 - CONCLUSION: No intracranial abnormality is identified. No pituitary gland mass is seen. Brian Zhou MD Thyroid Ultrasound 01/04/17 0000 Signed Impressions: Service Date/Time: Wednesday, January 04, 2017 11:43 - CONCLUSION: Scattered small cystic areas in both lobes of thyroid. Nathaniel Porter MD FACR Renal Ultrasound 01/03/17 1218 Signed Impressions: Service Date/Time: Tuesday, January 03, 2017 12:35 - CONCLUSION: Normal examination except for slight increased echogenicity to both renal cortices suggesting mild chronic medical renal disease. Feliz Leung MD Chest X-Ray 01/03/17 0000 Signed Impressions: Service Date/Time: Tuesday, January 03, 2017 09:34 - CONCLUSION: Normal examination. Feliz Leung MD Abdomen/Pelvis CT 01/03/17 0000 Signed Impressions: Service Date/Time: Tuesday, January 03, 2017 09:49 - CONCLUSION: Normal examination. Dense stool throughout distended colon Feliz Leung MD Procedures EGD showed Severe Gastritis and Esophagitis. Other Results Laboratory Tests Test 01/06/17 01/08/17 01/09/17 01/10/17 09:00 04:56 05:05 05:34 Urine Magnesium 24 Hour 21 mg/24 h Nucleated Red Blood Cells 1 /100 WBC Neutrophils (%) (Auto) 77.1 % Lymphocytes (%) (Auto) 14.3 % Monocytes (%) (Auto) 8.2 % Eosinophils (%) (Auto) 0.3 % Basophils (%) (Auto) 0.1 % Neutrophils # (Auto) 11.1 TH/MM3 Lymphocytes # (Auto) 2.1 TH/MM3 Monocytes # (Auto) 1.2 TH/MM3 Eosinophils # (Auto) 0.0 TH/MM3 Basophils # (Auto) 0.0 TH/MM3 CBC Comment AUTO DIFF Differential Total Cells 100 Counted Neutrophils % (Manual) 74 % Band Neutrophils % 3 % Lymphocytes % 14 % Monocytes % 4 % Eosinophils % 1 % Basophils % 1 % Neutrophils # (Manual) 11.5 TH/MM3 Metamyelocytes 1 % Myelocytes 2 % Differential Comment FINAL DIFF MANUAL Platelet Estimate NORMAL Platelet Morphology Comment NORMAL Ovalocytes 1+ Total Bilirubin 0.2 MG/DL Aspartate Amino Transf 15 U/L (AST/SGOT) Alanine Aminotransferase 14 U/L (ALT/SGPT) Alkaline Phosphatase 41 U/L Total Protein 5.4 GM/DL Albumin 2.8 GM/DL White Blood Count 12.3 TH/MM3 Red Blood Count 3.29 MIL/MM3 Hemoglobin 9.3 GM/DL Hematocrit 28.5 % Mean Corpuscular Volume 86.6 FL Mean Corpuscular Hemoglobin 28.3 PG Mean Corpuscular Hemoglobin 32.7 % Concent Red Cell Distribution Width 16.0 % Platelet Count 295 TH/MM3 Mean Platelet Volume 7.2 FL Sodium Level 139 MEQ/L Chloride Level 106 MEQ/L Carbon Dioxide Level 24.6 MEQ/L Anion Gap 8 MEQ/L Blood Urea Nitrogen 12 MG/DL Creatinine 0.71 MG/DL Estimat Glomerular Filtration 91 ML/MIN Rate Random Glucose 102 MG/DL Calcium Level 7.9 MG/DL Magnesium Level 2.1 MG/DL Test 01/11/17 05:05 Potassium Level 3.3 MEQ/L Phosphorus Level 1.8 MG/DL Objective Remarks GENERAL: Patient is lying in bed in NAD HEENT: Normocephalic. Atraumatic. Pupils equal, round, reactive, conjugate. NECK: Neck is midline. There is no JVD. CHEST: Equal chest rise. Clear to auscultation bilaterally. CARDIOVASCULAR: Heart rate, regular rhythm. S1 and S2 without appreciable murmurs. ABDOMEN: Soft, mild tenderness on palpitation, no guarding or rebound. MUSCULOSKELETAL: Distal pulses 2+ no peripheral edema. NEUROLOGICAL: RASS 0. Subjectively she has decreased sensation to fine touch in a stocking distribution over her dorsum hands and feet. Otherwise grossly neuro intact. Medications and IVs Current Medications Medications (Trade) Dose Ordered Sig/Osito Route Start Time Stop Time Status Last Admin (NS Flush) 2 ml UNSCH PRN IV FLUSH 01/03/17 12:00 01/11/17 05:22 (NS Flush) 2 ml BID IV FLUSH 01/03/17 21:00 01/11/17 09:45 (Protonix Inj) 40 mg DAILY IV 01/04/17 09:00 01/11/17 09:44 (Zofran Inj) 4 mg Q6H PRN IV 01/03/17 12:00 01/11/17 17:11 (Heparin Inj) 5,000 units Q8H SQ 01/03/17 12:00 Hold 01/08/17 20:06 Miscellaneous Information 1 [id number] XX 01/03/17 12:00 (Chlorhexidine 2% Cloth) Taper DAILY@04 TOP 01/04/17 04:00 12/31/17 03:59 01/11/17 04:00 Chlorhexidine Gluconate 3 pack 3 pack UNSCH PRN TOP 01/03/17 12:00 Potassium Chloride 100 ml @ 50 mls/hr Q2H PRN IV 01/04/17 09:45 (KCl 20 Meq Premix Inj) 100 ml @ 50 mls/hr Q2H PRN IV 01/04/17 09:45 01/10/17 10:55 Potassium Chloride 40 meq 40 meq UNSCH PRN PO/TUBE 01/04/17 09:45 Potassium Chloride 100 ml @ 25 mls/hr UNSCH PRN IV 01/04/17 09:45 Potassium Chloride 100 ml @ 50 mls/hr Q2H PRN IV 01/04/17 09:45 01/04/17 10:34 (Magnesium Sulfate Inj/NS Inj) 100 ml @ 50 mls/hr UNSCH PRN IV 01/04/17 09:45 Magnesium Oxide 800 mg 800 mg UNSCH PRN PO 01/04/17 09:45 (Magnesium Sulfate Inj/NS Inj) 100 ml @ 50 mls/hr UNSCH PRN IV 01/04/17 09:45 Potassium Phosphate 2000 mg 2,000 mg Q4H PRN PO 01/04/17 09:45 01/11/17 05:22 (Sodium Phosphate Inj/NS 250 ml Inj) 250 ml @ 42 mls/hr UNSCH PRN IV 01/04/17 09:45 (KCl 40 Meq/30 ml Liq) 40 meq UNSCH PRN PO/TUBE 01/04/17 09:45 01/08/17 21:34 Potassium Phosphate 2000 mg 2,000 mg UNSCH PRN PO/TUBE 01/04/17 09:45 01/08/17 21:54 (Potassium Phosphate Inj/NS 250 ml Inj) 260 ml @ 42 mls/hr UNSCH PRN IV 01/04/17 09:45 01/08/17 10:15 (D50w (Vial) Inj) 25 ml UNSCH PRN IV PUSH 01/04/17 10:45 (Glucagon Inj) 1 mg UNSCH PRN OTHER 01/04/17 10:45 (NovoLIN R SUPPLEMENTAL SCALE) 1 Q4H SQ 01/04/17 11:00 01/10/17 19:00 (Morphine Inj) 1 mg Q4H PRN IV PUSH 01/04/17 11:00 01/11/17 13:59 (Carafate Liq) 1 gm ACHS PO 01/06/17 16:00 01/11/17 17:11 (Mag-Ox) 400 mg Q12HR PO 01/07/17 21:00 01/11/17 09:44 (KCl 40 Meq/30 ml Liq) 40 meq DAILY NG 01/08/17 09:00 01/08/17 08:18 (Ambien) 10 mg HS PRN PO 01/08/17 21:00 01/10/17 20:29 (Synthroid) 25 mcg DAILY@0600 PO 01/08/17 08:15 01/11/17 05:22 Hydrocortisone Sodium Succinate 50 mg 50 mg Q8H IV PUSH 01/08/17 09:00 01/11/17 17:11 (KCl Inj/1/2 NS 1000 ml Inj) 1,020 ml @ 42 mls/hr Q24H IV 01/10/17 10:00 01/11/17 09:44 (Citroma Liq) 300 ml Q12HR PO 01/10/17 21:00 01/12/17 20:59 01/11/17 09:44 A/P Assessment and Plan 1. Electrolyte derangement/severe Hypokalemia no clear etiology continue replacement. has also Phosphorus depletion receiving replacement. 2. Leukocytosis Steroid related. 3. Intractable nausea and vomit/Chronic abdominal pain, GI specialist following EGD performed on Colon prep for Colonoscopy. 4. Anemia transfuse as needed. Hemoglobin 9 5. Chronic Abdominal pain EGD found Severe esophagitis and gastritis, continue Carafate and PPIs 6. Bipolar Disorder and Anxiety Disorder.MRI no acute abnormalities, no Pituitary mass Cleared for discharge by Psychiatry specialist. 7. Was on Empiric antibiotic management but no signs of infection was on Aztreonam and Flagyl Leukocytosis may be related to Steroid use, blood cultures negative. 8. Euthyroid Sick syndrome US thyroid showed Small Cystic Areas in both lobes of thyroid. thyroid peroxidase ab, ELLE negative. on Steroids to continue tapering. on Levothyroxine SCDs, SQ Heparin for DVT prophylaxis Protonix for GI prophylaxis Discharge Planning Not yet cleared by GI specialist or Nephrology. Romaine Bowden MD Jan 11, 2017 17:40
[2017-01-11 18:50] LABS: POTASSIUM 3.4 MEQ/L (3.5-5.1)
[2017-01-11] MEDS: ZOLPIDEM TARTRATE 10 MG TAB PO PRN (20:20)
[2017-01-12] VITALS (14 sets, daily range): BP systolic 125–148; BP diastolic 61–88; PULSE 54–102; RESP 14–26; TEMP 98.2–98.9; O2SAT 92–100
[2017-01-12] MEDS ORDERED: DIAZEPAM 2 MG TAB PO ONE (01:45)
[2017-01-12] MEDS: HYDROCORTISONE SOD SUCCINATE 100 MG VIAL IV PUSH SCH ×3 (02:01→17:11)
[2017-01-12] MEDS: MORPHINE SULFATE 4 MG/ML INJ IV PUSH PRN ×6 (02:12→23:58)
[2017-01-12] MEDS: INSULIN NovoLIN REGULAR SUPPLEMENTAL SCALE SQ SCH ×6 (03:00→23:00)
[2017-01-12] MEDS: CHLORHEXIDINE GLUCONATE 2 % 1 PACK (2 CLOTHS) TOP SCH (04:00)
[2017-01-12] MEDS: LEVOTHYROXINE SODIUM 25 MCG TAB PO SCH (06:29)
[2017-01-12 06:37] LABS: BICARBONATE 26.3 MEQ/L (21.0-32.0); MAGNESIUM 1.9 MG/DL (1.5-2.5); POTASSIUM 3.1 MEQ/L (3.5-5.1)
[2017-01-12] MEDS: SUCRALFATE 1 GM/10 ML CUP PO SCH ×5 (07:00→19:54)
[2017-01-12 07:02] LABS: AUTOMATED NEUTROPHIL # 11.8 TH/MM3 (1.8-7.7); BASOPHIL % 0.2 % (0.0-2.0); EOSINOPHIL # 0.1 TH/MM3 (0-0.4); EOSINOPHIL % 0.5 % (0.0-4.0); HEMO FLAGS DIFF FINAL; LYMPH % 9.9 % (9.0-44.0); LYMPHOCYTE # 1.4 TH/MM3 (1.0-4.8); MEAN CELL VOLUME 88.2 FL (80.0-100.0); MEAN CORPUSCULAR HEMOGLOBIN 28.5 PG (27.0-34.0); MEAN CORPUSCULAR HGB CONC 32.3 % (32.0-36.0); NEUT % 85.4 % (16.0-70.0); PLATELET COUNT 203 TH/MM3 (150-450); RED BLOOD COUNT 3.17 MIL/MM3 (4.00-5.30); RED CELL DISTRIBUTION WIDTH 16.5 % (11.6-17.2); WHITE BLOOD COUNT 13.8 TH/MM3 (4.0-11.0)
[2017-01-12] MEDS: POTASSIUM CL 40 MEQ/30 ML LIQ UDC NG SCH (09:00)
[2017-01-12] MEDS: POTASSIUM CHLORIDE INJ 40 MEQ in SODIUM CHLOR 0.45% 1000 ML INJ 1,000 ML IV SCH (10:08)
[2017-01-12] MEDS: MAGNESIUM CITRATE SOLN 300 ML BTL PO SCH (10:08)
[2017-01-12] MEDS: MAGNESIUM OXIDE 400 MG TAB PO SCH ×2 (10:08→19:55)
[2017-01-12] MEDS: PANTOPRAZOLE SODIUM 40 MG VIAL IV SCH (10:09)
[2017-01-12] MEDS: SODIUM CHLORIDE 0.9% FLUSH 5 ML FLUSH IV FLUSH SCH ×2 (10:09→20:09)
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
--- NOTE | 2017-01-12 14:27 | HHI.PR ---
Subjective Remarks This is a pleasant 41 y/o Female with multiple admissions to ICU for severe hypokalemia, as per patient during the last 18 months she is been in Intensive care for eight months, Her symptoms she states started back in July or August of last year where she noticed hair loss, weight loss, fatigue, nausea, vomiting, diarrhea. unintentional has Gastroparesis, Ulcerative Colitis, Lupus, Bipolar disorder, tingling sensation on hands and feet, started to lactate and she is non . Critical Care notes. 01/04 Patient is lying in bed in NAD. Afebrile. K level 1.5 this morning. / No acute events overnight. Awake and alert. K 2.2 today 01/06 Patient is lying in bed in NAD. K 2.6 this morning. 01/07 No acute events overnight. Afebrile. 01/09 patient seen in her bedroom in Intensive care unit asked to continue management by Hospitalist, discussed with CT abdomen Normal. last year had Colonoscopy showed colonic ulcer, asked for new EGD and Colonoscopy later today, has Anemia GI specialist recommended transfusion as needed, Nephrology specialist following for Acute Kidney injury and severe hypokalemia, EGD showed severe Gastritis and Esophagitis, was not possible to perform the Colonoscopy recommended to continue antibiotics, Carafate, PPI, Magnesium Citrate Doctor Alvarado Lucero following for GI, appreciated. 01/10 Patient stable seen and discussed with patient frustrated wanted me to see some pictures in her phone. continue replacement will have her Colonoscopy once colon prep 01/11 seen in her bedroom today potassium 3.3, Phosphorus 1.8 replacing, encourage activity. 01/12 Today seen in the room in the presence of nurse Miss Kolb, continue Electrolyte replacement asked to get Valium she uses 10 mg q 8 to 12 hours PRN for Anxiety. Objective Vital Signs Date Time Temp Pulse Resp B/P Pulse Ox O2 Delivery O2 Flow Rate FiO2 01/12/17 06:49 19 01/12/17 06:00 77 01/12/17 04:00 98.7 79 15 140/86 98 01/12/17 04:00 79 01/12/17 02:00 58 01/12/17 00:00 98.9 77 15 144/88 100 01/12/17 00:00 77 01/11/17 22:28 98 21 01/11/17 22:00 104 01/11/17 20:00 83 01/11/17 20:00 100.0 83 12 128/73 99 01/11/17 18:00 73 01/11/17 16:00 80 01/11/17 16:00 98.9 80 14 163/74 100 I/O 01/11/17 01/11/17 01/11/17 01/12/17 01/12/17 01/12/17 07:00 15:00 23:00 07:00 15:00 23:00 Intake Total 531 ml 504 ml 772 ml 624 ml Output Total 900 ml Balance 531 ml -396 ml 772 ml 624 ml Intake Oral 240 ml 360 ml 500 ml 400 ml IV Total 291 ml 144 ml 272 ml 224 ml Output Urine Total 900 ml # Voids 3 5 4 # Bowel Movements 0 0 1 0 Result Diagram: 01/12/17 0512 01/12/17 0512 Imaging Last Impressions Brain MRI 01/07/17 1032 Signed Impressions: Service Date/Time: Saturday, January 07, 2017 10:57 - CONCLUSION: No intracranial abnormality is identified. No pituitary gland mass is seen. Brian Zhou MD Thyroid Ultrasound 01/04/17 0000 Signed Impressions: Service Date/Time: Wednesday, January 04, 2017 11:43 - CONCLUSION: Scattered small cystic areas in both lobes of thyroid. Nathaniel Porter MD FACR Renal Ultrasound 01/03/17 1218 Signed Impressions: Service Date/Time: Tuesday, January 03, 2017 12:35 - CONCLUSION: Normal examination except for slight increased echogenicity to both renal cortices suggesting mild chronic medical renal disease. Feliz Leung MD Chest X-Ray 01/03/17 0000 Signed Impressions: Service Date/Time: Tuesday, January 03, 2017 09:34 - CONCLUSION: Normal examination. Feliz Leung MD Abdomen/Pelvis CT 01/03/17 0000 Signed Impressions: Service Date/Time: Tuesday, January 03, 2017 09:49 - CONCLUSION: Normal examination. Dense stool throughout distended colon Feliz Leung MD Procedures EGD showed Severe Gastritis and Esophagitis. Other Results Laboratory Tests Test 01/06/17 01/08/17 01/09/17 01/12/17 09:00 04:56 05:05 05:12 Urine Magnesium 24 Hour 21 mg/24 h Nucleated Red Blood Cells 1 /100 WBC Differential Total Cells 100 Counted Neutrophils % (Manual) 74 % Band Neutrophils % 3 % Lymphocytes % 14 % Monocytes % 4 % Eosinophils % 1 % Basophils % 1 % Neutrophils # (Manual) 11.5 TH/MM3 Metamyelocytes 1 % Myelocytes 2 % Platelet Estimate NORMAL Platelet Morphology Comment NORMAL Ovalocytes 1+ Total Bilirubin 0.2 MG/DL Aspartate Amino Transf 15 U/L (AST/SGOT) Alanine Aminotransferase 14 U/L (ALT/SGPT) Alkaline Phosphatase 41 U/L Total Protein 5.4 GM/DL Albumin 2.8 GM/DL White Blood Count 13.8 TH/MM3 Red Blood Count 3.17 MIL/MM3 Hemoglobin 9.0 GM/DL Hematocrit 28.0 % Mean Corpuscular Volume 88.2 FL Mean Corpuscular Hemoglobin 28.5 PG Mean Corpuscular Hemoglobin 32.3 % Concent Red Cell Distribution Width 16.5 % Platelet Count 203 TH/MM3 Mean Platelet Volume 8.0 FL Neutrophils (%) (Auto) 85.4 % Lymphocytes (%) (Auto) 9.9 % Monocytes (%) (Auto) 4.0 % Eosinophils (%) (Auto) 0.5 % Basophils (%) (Auto) 0.2 % Neutrophils # (Auto) 11.8 TH/MM3 Lymphocytes # (Auto) 1.4 TH/MM3 Monocytes # (Auto) 0.5 TH/MM3 Eosinophils # (Auto) 0.1 TH/MM3 Basophils # (Auto) 0.0 TH/MM3 CBC Comment DIFF FINAL Differential Comment Hematology Comments Sodium Level 144 MEQ/L Potassium Level 3.1 MEQ/L Chloride Level 107 MEQ/L Carbon Dioxide Level 26.3 MEQ/L Anion Gap 11 MEQ/L Blood Urea Nitrogen 6 MG/DL Creatinine 0.65 MG/DL Estimat Glomerular Filtration 101 ML/MIN Rate Random Glucose 94 MG/DL Calcium Level 8.1 MG/DL Phosphorus Level 2.7 MG/DL Magnesium Level 1.9 MG/DL Objective Remarks GENERAL: Patient is lying in bed in NAD HEENT: Normocephalic. Atraumatic. Pupils equal, round, reactive, conjugate. NECK: Neck is midline. There is no JVD. CHEST: Equal chest rise. Clear to auscultation bilaterally. CARDIOVASCULAR: Heart rate, regular rhythm. S1 and S2 without appreciable murmurs. ABDOMEN: Soft, mild tenderness on palpitation, no guarding or rebound. MUSCULOSKELETAL: Distal pulses 2+ no peripheral edema. NEUROLOGICAL: RASS 0. Subjectively she has decreased sensation to fine touch in a stocking distribution over her dorsum hands and feet. Otherwise grossly neuro intact. Medications and IVs Current Medications Medications (Trade) Dose Ordered Sig/Osito Route Start Time Stop Time Status Last Admin (NS Flush) 2 ml UNSCH PRN IV FLUSH 01/03/17 12:00 01/11/17 05:22 (NS Flush) 2 ml BID IV FLUSH 01/03/17 21:00 01/12/17 10:09 (Protonix Inj) 40 mg DAILY IV 01/04/17 09:00 01/12/17 10:09 (Zofran Inj) 4 mg Q6H PRN IV 01/03/17 12:00 01/11/17 17:11 (Heparin Inj) 5,000 units Q8H SQ 01/03/17 12:00 Hold 01/08/17 20:06 Miscellaneous Information 1 Q361D XX 01/03/17 12:00 (Chlorhexidine 2% Cloth) Taper DAILY@04 TOP 01/04/17 04:00 12/31/17 03:59 01/12/17 04:00 Chlorhexidine Gluconate 3 pack 3 pack UNSCH PRN TOP 01/03/17 12:00 Potassium Chloride 100 ml @ 50 mls/hr Q2H PRN IV 01/04/17 09:45 (KCl 20 Meq Premix Inj) 100 ml @ 50 mls/hr Q2H PRN IV 01/04/17 09:45 01/10/17 10:55 Potassium Chloride 40 meq 40 meq UNSCH PRN PO/TUBE 01/04/17 09:45 Potassium Chloride 100 ml @ 25 mls/hr UNSCH PRN IV 01/04/17 09:45 Potassium Chloride 100 ml @ 50 mls/hr Q2H PRN IV 01/04/17 09:45 01/04/17 10:34 (Magnesium Sulfate Inj/NS Inj) 100 ml @ 50 mls/hr UNSCH PRN IV 01/04/17 09:45 Magnesium Oxide 800 mg 800 mg UNSCH PRN PO 01/04/17 09:45 (Magnesium Sulfate Inj/NS Inj) 100 ml @ 50 mls/hr UNSCH PRN IV 01/04/17 09:45 Potassium Phosphate 2000 mg 2,000 mg Q4H PRN PO 01/04/17 09:45 01/11/17 20:20 (Sodium Phosphate Inj/NS 250 ml Inj) 250 ml @ 42 mls/hr UNSCH PRN IV 01/04/17 09:45 (KCl 40 Meq/30 ml Liq) 40 meq UNSCH PRN PO/TUBE 01/04/17 09:45 01/08/17 21:34 Potassium Phosphate 2000 mg 2,000 mg UNSCH PRN PO/TUBE 01/04/17 09:45 01/08/17 21:54 (Potassium Phosphate Inj/NS 250 ml Inj) 260 ml @ 42 mls/hr UNSCH PRN IV 01/04/17 09:45 01/08/17 10:15 (D50w (Vial) Inj) 25 ml UNSCH PRN IV PUSH 01/04/17 10:45 (Glucagon Inj) 1 mg UNSCH PRN OTHER 01/04/17 10:45 (NovoLIN R SUPPLEMENTAL SCALE) 1 Q4H SQ 01/04/17 11:00 01/10/17 19:00 (Morphine Inj) 1 mg Q4H PRN IV PUSH 01/04/17 11:00 01/12/17 14:56 (Carafate Liq) 1 gm ACHS PO 01/06/17 16:00 01/12/17 11:00 (Mag-Ox) 400 mg Q12HR PO 01/07/17 21:00 01/12/17 10:08 (KCl 40 Meq/30 ml Liq) 40 meq DAILY NG 01/08/17 09:00 01/08/17 08:18 (Synthroid) 25 mcg DAILY@0600 PO 01/08/17 08:15 01/12/17 06:29 Hydrocortisone Sodium Succinate 50 mg 50 mg Q8H IV PUSH 01/08/17 09:00 01/12/17 10:08 (KCl Inj/1/2 NS 1000 ml Inj) 1,020 ml @ 42 mls/hr Q24H IV 01/10/17 10:00 01/12/17 10:08 (Citroma Liq) 300 ml Q12HR PO 01/10/17 21:00 01/12/17 20:59 01/12/17 10:08 A/P Assessment and Plan 1. Electrolyte derangement/severe Hypokalemia no clear etiology continue replacement. has also Phosphorus depletion receiving replacement. 2. Leukocytosis Steroid related. 3. Intractable nausea and vomit/Chronic abdominal pain, GI specialist following EGD performed on Colon prep for Colonoscopy. 4. Anemia transfuse as needed. Hemoglobin 9 5. Chronic Abdominal pain EGD found Severe esophagitis and gastritis, continue Carafate and PPIs 6. Bipolar Disorder and Anxiety Disorder.MRI no acute abnormalities, no Pituitary mass Cleared for discharge by Psychiatry specialist. 7. Was on Empiric antibiotic management but no signs of infection was on Aztreonam and Flagyl Leukocytosis may be related to Steroid use, blood cultures negative. 8. Euthyroid Sick syndrome US thyroid showed Small Cystic Areas in both lobes of thyroid. thyroid peroxidase ab, ELLE negative. on Steroids to continue tapering. on Levothyroxine SCDs, SQ Heparin for DVT prophylaxis Protonix for GI prophylaxis Discharge Planning Not yet cleared by GI specialist or Nephrology. Romaine Bowden MD Jan 12, 2017 14:27
[2017-01-12] MEDS ORDERED: PEG (High)/E-LYTE SOLN 4000 ML BTL PO ONE (17:30)
[2017-01-12] MEDS ORDERED: DIAZEPAM 10 MG TAB PO PRN (17:45)
[2017-01-12] MEDS: DIAZEPAM 5 MG TAB PO PRN (18:02)
[2017-01-12] MEDS: POTASSIUM CHLOR 20 MEQ PREMIX 100 ML IV PRN (21:06)
[2017-01-12] MEDS: POTASSIUM CL 40 MEQ/30 ML LIQ UDC PO/TUBE PRN (23:36)
[2017-01-13] VITALS (13 sets, daily range): BP systolic 96–144; BP diastolic 59–85; PULSE 55–96; RESP 16–18; TEMP 97.5–99.6; O2SAT 96–100
[2017-01-13] MEDS: HYDROCORTISONE SOD SUCCINATE 100 MG VIAL IV PUSH SCH ×4 (01:06→23:43)
[2017-01-13] MEDS ORDERED: DIAZEPAM 5 MG TAB PO ONE (01:45)
[2017-01-13] MEDS: INSULIN NovoLIN REGULAR SUPPLEMENTAL SCALE SQ SCH ×5 (03:00→22:55)
[2017-01-13] MEDS: CHLORHEXIDINE GLUCONATE 2 % 1 PACK (2 CLOTHS) TOP SCH (04:00)
[2017-01-13] MEDS: MORPHINE SULFATE 4 MG/ML INJ IV PUSH PRN ×3 (04:51→21:03)
[2017-01-13] MEDS: DIAZEPAM 5 MG TAB PO PRN (06:23)
[2017-01-13] MEDS: LEVOTHYROXINE SODIUM 25 MCG TAB PO SCH (06:23)
[2017-01-13] MEDS: POTASSIUM CHLOR 20 MEQ PREMIX 100 ML IV SCH ×4 (08:00→13:00)
[2017-01-13] MEDS: POTASSIUM CL 40 MEQ/30 ML LIQ UDC NG SCH (09:00)
[2017-01-13] MEDS: POTASSIUM CHLORIDE INJ 40 MEQ in SODIUM CHLOR 0.45% 1000 ML INJ 1,000 ML IV SCH (10:00)
[2017-01-13] MEDS: SUCRALFATE 1 GM/10 ML CUP PO SCH ×4 (11:00→21:02)
[2017-01-13] MEDS ORDERED: PROPOFOL 200 MG/20 ML AMP IV ONE (11:05)
[2017-01-13] MEDS ORDERED: DO NOT ADM ANY ANTICOAGULANT DRUGS XX PRN (11:22)
[2017-01-13] MEDS: ONDANSETRON HCL 4 MG/2 ML VIAL IV PRN ×2 (12:00→16:54)
[2017-01-13] MEDS: MAGNESIUM OXIDE 400 MG TAB PO SCH ×2 (12:00→21:01)
[2017-01-13] MEDS: PANTOPRAZOLE SODIUM 40 MG VIAL IV SCH (12:00)
[2017-01-13] MEDS: SODIUM CHLORIDE 0.9% FLUSH 5 ML FLUSH IV FLUSH SCH ×2 (12:01→21:02)
[2017-01-13] MEDS ORDERED: MIDAZOLAM HCL 2 MG/2 ML VIAL ONE (12:28)
--- NOTE | 2017-01-13 13:43 | RADRPT ---
EXAM DATE/TIME: 01/13/2017 13:05 [facility] COMPARISON: CHEST SINGLE AP, January 03, 2017, 9:34. INDICATIONS : PICC line placement. MEDICAL HISTORY : None. SURGICAL HISTORY : None. ENCOUNTER: Initial ACUITY: 1 day PAIN SCORE: 0/10 LOCATION: Bilateral chest FINDINGS: A single view of the chest demonstrates the presence of a right upper extremity PICC line. Its tip is in appropriate position within the superior vena cava. Lungs well expanded and clear. Heart and mediastinal structures are stable. CONCLUSION: Satisfactory position of right upper extremity PICC line. No evidence of acute cardio pulmonary process. Maged Verde MD on January 13, 2017 at 13:39 Board Certified Radiologist. This report was verified electronically.
[2017-01-13] MEDS: POTASSIUM CHLORIDE 20 MEQ CONTROLLED RELEASE TAB PO SCH ×2 (14:54→21:02)
[2017-01-13] MEDS: DIAZEPAM 10 MG TAB PO PRN ×2 (14:54→22:55)
[2017-01-13] MEDS: POTASSIUM PHOSPHATE MONOBASIC 500 MG TAB PO SCH ×2 (14:54→21:02)
[2017-01-13] MEDS: POTASSIUM CHLOR 40 MEQ PREMIX 100 ML IV PRN ×2 (14:55→17:01)
[2017-01-14] VITALS (13 sets, daily range): BP systolic 124–168; BP diastolic 74–88; PULSE 51–100; RESP 17–23; TEMP 98.3–99; O2SAT 92–100
[2017-01-14] MEDS: MORPHINE SULFATE 4 MG/ML INJ IV PUSH PRN ×5 (01:10→20:40)
[2017-01-14] MEDS: INSULIN NovoLIN REGULAR SUPPLEMENTAL SCALE SQ SCH ×5 (03:21→20:58)
[2017-01-14] MEDS: CHLORHEXIDINE GLUCONATE 2 % 1 PACK (2 CLOTHS) TOP SCH (04:00)
[2017-01-14] MEDS: LEVOTHYROXINE SODIUM 25 MCG TAB PO SCH (06:14)
[2017-01-14] MEDS: SUCRALFATE 1 GM/10 ML CUP PO SCH ×4 (06:14→20:40)
[2017-01-14] MEDS: PANTOPRAZOLE SODIUM 40 MG VIAL IV SCH (08:30)
[2017-01-14] MEDS: SODIUM CHLORIDE 0.9% FLUSH 5 ML FLUSH IV FLUSH SCH ×2 (08:30→20:41)
[2017-01-14] MEDS: POTASSIUM CHLOR 40 MEQ PREMIX 100 ML IV PRN (08:30)
[2017-01-14] MEDS: POTASSIUM CHLORIDE 20 MEQ CONTROLLED RELEASE TAB PO SCH ×2 (08:31→20:40)
[2017-01-14] MEDS: ONDANSETRON HCL 4 MG/2 ML VIAL IV PRN (08:31)
[2017-01-14] MEDS: HYDROCORTISONE SOD SUCCINATE 100 MG VIAL IV PUSH SCH ×2 (08:31→18:20)
[2017-01-14] MEDS: MAGNESIUM OXIDE 400 MG TAB PO SCH ×2 (08:31→20:40)
[2017-01-14] MEDS: DIAZEPAM 10 MG TAB PO PRN ×2 (08:32→18:19)
[2017-01-14] MEDS: POTASSIUM PHOSPHATE MONOBASIC 500 MG TAB PO SCH ×2 (08:32→20:40)
[2017-01-14] MEDS: POTASSIUM CL 40 MEQ/30 ML LIQ UDC NG SCH (09:00)
--- NOTE | 2017-01-14 15:16 | HHI.PR ---
Subjective Remarks Progress Note for 01/13/17 This is a pleasant 41 y/o Female with multiple admissions to ICU for severe hypokalemia, as per patient during the last 18 months she is been in Intensive care for eight months, Her symptoms she states started back in July or August of last year where she noticed hair loss, weight loss, fatigue, nausea, vomiting, diarrhea. unintentional has Gastroparesis, Ulcerative Colitis, Lupus, Bipolar disorder, tingling sensation on hands and feet, started to lactate and she is non . Critical Care notes. 01/04 Patient is lying in bed in NAD. Afebrile. K level 1.5 this morning. 3/ No acute events overnight. Awake and alert. K 2.2 today 01/06 Patient is lying in bed in NAD. K 2.6 this morning. 01/07 No acute events overnight. Afebrile. 01/09 patient seen in her bedroom in Intensive care unit asked to continue management by Hospitalist, discussed with CT abdomen Normal. last year had Colonoscopy showed colonic ulcer, asked for new EGD and Colonoscopy later today, has Anemia GI specialist recommended transfusion as needed, Nephrology specialist following for Acute Kidney injury and severe hypokalemia, EGD showed severe Gastritis and Esophagitis, was not possible to perform the Colonoscopy recommended to continue antibiotics, Carafate, PPI, Magnesium Citrate Doctor Alvarado Lucero following for GI, appreciated. 01/10 Patient stable seen and discussed with patient frustrated wanted me to see some pictures in her phone. continue replacement will have her Colonoscopy once colon prep 01/11 seen in her bedroom today potassium 3.3, Phosphorus 1.8 replacing, encourage activity. 01/12 Today seen in the room in the presence of nurse Miss Kolb, continue Electrolyte replacement asked to get Valium she uses 10 mg q 8 to 12 hours PRN for Anxiety. 01/13 Seen in the room in the presence of nurse Miss Ramin mtz, continue Potassium and Phosphorus replacement, adjusted dosages of Electrolytes by mouth and pain Medicine. Objective Vital Signs Date Time Temp Pulse Resp B/P Pulse Ox O2 Delivery O2 Flow Rate FiO2 01/14/17 14:00 74 01/14/17 12:00 77 01/14/17 10:00 80 01/14/17 08:00 72 01/14/17 06:00 65 01/14/17 04:00 98.7 70 18 168/74 96 01/14/17 04:00 70 01/14/17 02:00 64 01/14/17 00:00 68 01/14/17 00:00 98.7 68 18 130/80 100 01/13/17 22:00 67 01/13/17 20:05 98 21 01/13/17 20:00 79 01/13/17 20:00 98.5 79 18 114/68 100 01/13/17 18:00 63 01/13/17 16:59 18 01/13/17 16:00 66 01/13/17 16:00 98.3 88 16 96/59 100 I/O 01/13/17 01/13/17 01/13/17 01/14/17 01/14/17 01/14/17 07:00 15:00 23:00 07:00 15:00 23:00 Intake Total 724 ml 553 ml 842 ml 360 ml Output Total 600 ml 680 ml Balance 124 ml -127 ml 842 ml 360 ml Intake Oral 0 ml 420 ml 360 ml IV Total 724 ml 553 ml 422 ml Output Urine Total 600 ml 680 ml # Voids 2 0 3 3 # Bowel Movements 1 0 0 0 Result Diagram: 01/12/17 0512 01/14/17 0522 Imaging Last Impressions Chest X-Ray 01/13/17 0000 Signed Impressions: Service Date/Time: Friday, January 13, 2017 13:05 - CONCLUSION: Satisfactory position of right upper extremity PICC line. No evidence of acute cardio pulmonary process. Maged Verde MD Brain MRI 01/07/17 1032 Signed Impressions: Service Date/Time: Saturday, January 07, 2017 10:57 - CONCLUSION: No intracranial abnormality is identified. No pituitary gland mass is seen. Brian Zhou MD Thyroid Ultrasound 01/04/17 0000 Signed Impressions: Service Date/Time: Wednesday, January 04, 2017 11:43 - CONCLUSION: Scattered small cystic areas in both lobes of thyroid. Nathaniel Porter MD FACR Renal Ultrasound 01/03/17 1218 Signed Impressions: Service Date/Time: Tuesday, January 03, 2017 12:35 - CONCLUSION: Normal examination except for slight increased echogenicity to both renal cortices suggesting mild chronic medical renal disease. Feliz Leung MD Abdomen/Pelvis CT 01/03/17 0000 Signed Impressions: Service Date/Time: Tuesday, January 03, 2017 09:49 - CONCLUSION: Normal examination. Dense stool throughout distended colon Feliz Leung MD Procedures EGD showed Severe Gastritis and Esophagitis. Objective Remarks GENERAL: Patient is lying in bed in NAD HEENT: Normocephalic. Atraumatic. Pupils equal, round, reactive, conjugate. NECK: Neck is midline. There is no JVD. CHEST: Equal chest rise. Clear to auscultation bilaterally. CARDIOVASCULAR: Heart rate, regular rhythm. S1 and S2 without appreciable murmurs. ABDOMEN: Soft, mild tenderness on palpitation, no guarding or rebound. MUSCULOSKELETAL: Distal pulses 2+ no peripheral edema. NEUROLOGICAL: RASS 0. Subjectively she has decreased sensation to fine touch in a stocking distribution over her dorsum hands and feet. Otherwise grossly neuro intact. A/P Assessment and Plan 1. Electrolyte derangement/severe Hypokalemia no clear etiology continue replacement. has also Phosphorus depletion receiving replacement. 2. Leukocytosis Steroid related. 3. Intractable nausea and vomit/Chronic abdominal pain, GI specialist following EGD performed on Colon prep for Colonoscopy. 4. Anemia transfuse as needed. Hemoglobin 9 5. Chronic Abdominal pain EGD found Severe esophagitis and gastritis, continue Carafate and PPIs 6. Bipolar Disorder and Anxiety Disorder.MRI no acute abnormalities, no Pituitary mass Cleared for discharge by Psychiatry specialist. 7. Was on Empiric antibiotic management but no signs of infection was on Aztreonam and Flagyl Leukocytosis may be related to Steroid use, blood cultures negative. 8. Euthyroid Sick syndrome US thyroid showed Small Cystic Areas in both lobes of thyroid. thyroid peroxidase ab, ELLE negative. on Steroids to continue tapering. on Levothyroxine Discussed with patient in the room and nurse Miss Faustin continue present management. SCDs, SQ Heparin for DVT prophylaxis Protonix for GI prophylaxis Discharge Planning Not yet cleared by GI specialist or Nephrology. Romaine Bowden MD Jan 14, 2017 15:16
--- NOTE | 2017-01-14 15:23 | HHI.PR ---
Subjective Remarks This is a pleasant 41 y/o Female with multiple admissions to ICU for severe hypokalemia, as per patient during the last 18 months she is been in Intensive care for eight months, Her symptoms she states started back in July or August of last year where she noticed hair loss, weight loss, fatigue, nausea, vomiting, diarrhea. unintentional has Gastroparesis, Ulcerative Colitis, Lupus, Bipolar disorder, tingling sensation on hands and feet, started to lactate and she is non . Critical Care notes. 01/04 Patient is lying in bed in NAD. Afebrile. K level 1.5 this morning. 3/ No acute events overnight. Awake and alert. K 2.2 today 01/06 Patient is lying in bed in NAD. K 2.6 this morning. 3/ No acute events overnight. Afebrile. 01/09 patient seen in her bedroom in Intensive care unit asked to continue management by Hospitalist, discussed with CT abdomen Normal. last year had Colonoscopy showed colonic ulcer, asked for new EGD and Colonoscopy later today, has Anemia GI specialist recommended transfusion as needed, Nephrology specialist following for Acute Kidney injury and severe hypokalemia, EGD showed severe Gastritis and Esophagitis, was not possible to perform the Colonoscopy recommended to continue antibiotics, Carafate, PPI, Magnesium Citrate Doctor Alvarado Lucero following for GI, appreciated. 01/10 Patient stable seen and discussed with patient frustrated wanted me to see some pictures in her phone. continue replacement will have her Colonoscopy once colon prep 01/11 seen in her bedroom today potassium 3.3, Phosphorus 1.8 replacing, encourage activity. 01/12 Today seen in the room in the presence of nurse Miss Kolb, continue Electrolyte replacement asked to get Valium she uses 10 mg q 8 to 12 hours PRN for Anxiety. 01/13 Seen in the room in the presence of nurse Miss Faustin appreciated, continue Potassium and Phosphorus replacement, adjusted dosages of Electrolytes by mouth and pain Medicine. 01/14 Patient stable seen in the room in the presence at all times of nurse miss Faustin appreciated patient improving condition continue scheduled dosages of Objective Vital Signs Date Time Temp Pulse Resp B/P Pulse Ox O2 Delivery O2 Flow Rate FiO2 01/14/17 14:00 74 01/14/17 12:00 77 01/14/17 10:00 80 01/14/17 08:00 72 01/14/17 06:00 65 3/11/17 04:00 98.7 70 18 168/74 96 01/14/17 04:00 70 01/14/17 02:00 64 01/14/17 00:00 68 01/14/17 00:00 98.7 68 18 130/80 100 01/13/17 22:00 67 01/13/17 20:05 98 21 01/13/17 20:00 79 01/13/17 20:00 98.5 79 18 114/68 100 01/13/17 18:00 63 01/13/17 16:59 18 01/13/17 16:00 66 01/13/17 16:00 98.3 88 16 96/59 100 I/O 01/13/17 01/13/17 01/13/17 01/14/17 01/14/17 01/14/17 07:00 15:00 23:00 07:00 15:00 23:00 Intake Total 724 ml 553 ml 842 ml 360 ml Output Total 600 ml 680 ml Balance 124 ml -127 ml 842 ml 360 ml Intake Oral 0 ml 420 ml 360 ml IV Total 724 ml 553 ml 422 ml Output Urine Total 600 ml 680 ml # Voids 2 0 3 3 # Bowel Movements 1 0 0 0 Result Diagram: 01/12/17 0512 01/14/17 0522 Imaging Last Impressions Chest X-Ray 01/13/17 0000 Signed Impressions: Service Date/Time: Friday, January 13, 2017 13:05 - CONCLUSION: Satisfactory position of right upper extremity PICC line. No evidence of acute cardio pulmonary process. Maged Verde MD Brain MRI 01/07/17 1032 Signed Impressions: Service Date/Time: Saturday, January 07, 2017 10:57 - CONCLUSION: No intracranial abnormality is identified. No pituitary gland mass is seen. Brian Zhou MD Thyroid Ultrasound 01/04/17 0000 Signed Impressions: Service Date/Time: Wednesday, January 04, 2017 11:43 - CONCLUSION: Scattered small cystic areas in both lobes of thyroid. Nathaniel Porter MD FACR Renal Ultrasound 01/03/17 1218 Signed Impressions: Service Date/Time: Tuesday, January 03, 2017 12:35 - CONCLUSION: Normal examination except for slight increased echogenicity to both renal cortices suggesting mild chronic medical renal disease. Feliz Leung MD Abdomen/Pelvis CT 01/03/17 0000 Signed Impressions: Service Date/Time: Tuesday, January 03, 2017 09:49 - CONCLUSION: Normal examination. Dense stool throughout distended colon Feliz Leung MD Procedures EGD showed Severe Gastritis and Esophagitis. Other Results Laboratory Tests Test 01/12/17 01/14/17 05:12 05:22 White Blood Count 13.8 TH/MM3 Red Blood Count 3.17 MIL/MM3 Hemoglobin 9.0 GM/DL Hematocrit 28.0 % Mean Corpuscular Volume 88.2 FL Mean Corpuscular Hemoglobin 28.5 PG Mean Corpuscular Hemoglobin 32.3 % Concent Red Cell Distribution Width 16.5 % Platelet Count 203 TH/MM3 Mean Platelet Volume 8.0 FL Neutrophils (%) (Auto) 85.4 % Lymphocytes (%) (Auto) 9.9 % Monocytes (%) (Auto) 4.0 % Eosinophils (%) (Auto) 0.5 % Basophils (%) (Auto) 0.2 % Neutrophils # (Auto) 11.8 TH/MM3 Lymphocytes # (Auto) 1.4 TH/MM3 Monocytes # (Auto) 0.5 TH/MM3 Eosinophils # (Auto) 0.1 TH/MM3 Basophils # (Auto) 0.0 TH/MM3 CBC Comment DIFF FINAL Differential Comment Hematology Comments Sodium Level 144 MEQ/L Chloride Level 107 MEQ/L Carbon Dioxide Level 26.3 MEQ/L Anion Gap 11 MEQ/L Blood Urea Nitrogen 6 MG/DL Creatinine 0.65 MG/DL Estimat Glomerular Filtration 101 ML/MIN Rate Random Glucose 94 MG/DL Calcium Level 8.1 MG/DL Phosphorus Level 2.7 MG/DL Magnesium Level 1.9 MG/DL Potassium Level 3.3 MEQ/L Objective Remarks GENERAL: Patient is lying in bed in NAD HEENT: Normocephalic. Atraumatic. Pupils equal, round, reactive, conjugate. NECK: Neck is midline. There is no JVD. CHEST: Equal chest rise. Clear to auscultation bilaterally. CARDIOVASCULAR: Heart rate, regular rhythm. S1 and S2 without appreciable murmurs. ABDOMEN: Soft, mild tenderness on palpitation, no guarding or rebound. MUSCULOSKELETAL: Distal pulses 2+ no peripheral edema. NEUROLOGICAL: RASS 0. Subjectively she has decreased sensation to fine touch in a stocking distribution over her dorsum hands and feet. Otherwise grossly neuro intact. Medications and IVs Current Medications Medications (Trade) Dose Ordered Sig/Osito Route Start Time Stop Time Status Last Admin (NS Flush) 2 ml UNSCH PRN IV FLUSH 01/03/17 12:00 01/11/17 05:22 (NS Flush) 2 ml BID IV FLUSH 01/03/17 21:00 01/14/17 08:30 (Protonix Inj) 40 mg DAILY IV 01/04/17 09:00 01/14/17 08:30 (Zofran Inj) 4 mg Q6H PRN IV 01/03/17 12:00 01/14/17 08:31 (Heparin Inj) 5,000 units Q8H SQ 01/03/17 12:00 Hold 01/08/17 20:06 Miscellaneous Information 1 Q361D XX 01/03/17 12:00 (Chlorhexidine 2% Cloth) Taper DAILY@04 TOP 01/04/17 04:00 12/31/17 03:59 01/14/17 04:00 Chlorhexidine Gluconate 3 pack 3 pack UNSCH PRN TOP 01/03/17 12:00 Potassium Chloride 100 ml @ 50 mls/hr Q2H PRN IV 01/04/17 09:45 01/14/17 08:30 (KCl 20 Meq Premix Inj) 100 ml @ 50 mls/hr Q2H PRN IV 01/04/17 09:45 01/12/17 21:06 Potassium Chloride 40 meq 40 meq UNSCH PRN PO/TUBE 01/04/17 09:45 Potassium Chloride 100 ml @ 25 mls/hr UNSCH PRN IV 01/04/17 09:45 Potassium Chloride 100 ml @ 50 mls/hr Q2H PRN IV 01/04/17 09:45 01/04/17 10:34 (Magnesium Sulfate Inj/NS Inj) 100 ml @ 50 mls/hr UNSCH PRN IV 01/04/17 09:45 Magnesium Oxide 800 mg 800 mg UNSCH PRN PO 01/04/17 09:45 (Magnesium Sulfate Inj/NS Inj) 100 ml @ 50 mls/hr UNSCH PRN IV 01/04/17 09:45 Potassium Phosphate 2000 mg 2,000 mg Q4H PRN PO 01/04/17 09:45 3/8/17 20:20 (Sodium Phosphate Inj/NS 250 ml Inj) 250 ml @ 42 mls/hr UNSCH PRN IV 01/04/17 09:45 (KCl 40 Meq/30 ml Liq) 40 meq UNSCH PRN PO/TUBE 01/04/17 09:45 01/12/17 23:36 Potassium Phosphate 2000 mg 2,000 mg UNSCH PRN PO/TUBE 01/04/17 09:45 01/08/17 21:54 (Potassium Phosphate Inj/NS 250 ml Inj) 260 ml @ 42 mls/hr UNSCH PRN IV 01/04/17 09:45 01/08/17 10:15 (D50w (Vial) Inj) 25 ml UNSCH PRN IV PUSH 01/04/17 10:45 (Glucagon Inj) 1 mg UNSCH PRN OTHER 01/04/17 10:45 (NovoLIN R SUPPLEMENTAL SCALE) 1 Q4H SQ 01/04/17 11:00 01/14/17 06:17 (Morphine Inj) 1 mg Q4H PRN IV PUSH 01/04/17 11:00 01/14/17 14:50 (Carafate Liq) 1 gm ACHS PO 01/06/17 16:00 01/14/17 12:54 (Mag-Ox) 400 mg Q12HR PO 01/07/17 21:00 01/14/17 08:31 (KCl 40 Meq/30 ml Liq) 40 meq DAILY NG 01/08/17 09:00 01/08/17 08:18 (Synthroid) 25 mcg DAILY@0600 PO 01/08/17 08:15 01/14/17 06:14 (SoluCORTEF INJ) 50 mg Q8H IV PUSH 01/08/17 09:00 01/14/17 08:31 (NS Flush) See Protocol DAILY IVF 01/14/17 09:00 01/14/17 08:31 (NS Flush) See Protocol UNSCH PRN IVF 01/13/17 13:15 (Heparin Central Flush) See Protocol DAILY IVF 01/14/17 09:00 01/14/17 08:31 (Heparin Central Flush) See Protocol UNSCH PRN IVF 01/13/17 13:15 (NS Flush) See Protocol UNSCH PRN IVF 01/13/17 13:15 (KCl) 20 meq Q12HR PO 01/13/17 14:00 01/14/17 08:31 (Valium) 10 mg Q8HR PRN PO 01/13/17 14:00 01/14/17 08:32 (K-Phos) 1,000 mg Q12HR PO 01/13/17 14:00 01/14/17 08:32 (Roxicodone) 5 mg Q4H PRN PO 01/13/17 17:00 01/14/17 12:55 A/P Assessment and Plan 1. Electrolyte derangement/severe Hypokalemia no clear etiology continue replacement. has also Phosphorus depletion receiving replacement. adjusted by mouth replacement and following. 2. Leukocytosis Steroid related. 3. Intractable nausea and vomit/Chronic abdominal pain Improving, GI specialist following EGD performed found Gastritis 4. Anemia transfuse as needed. Hemoglobin 9 5. Chronic Abdominal pain EGD found Severe esophagitis and gastritis, continue Carafate and PPIs 6. Bipolar Disorder and Anxiety Disorder.MRI no acute abnormalities, no Pituitary mass Cleared for discharge by Psychiatry specialist. 7. Was on Empiric antibiotic management but no signs of infection was on Aztreonam and Flagyl Leukocytosis may be related to Steroid use, blood cultures negative. 8. Euthyroid Sick syndrome US thyroid showed Small Cystic Areas in both lobes of thyroid. thyroid peroxidase ab, ELLE negative. on Steroids to continue tapering. on Levothyroxine Discussed with patient in the room and nurse Miss Faustin continue present management. SCDs, SQ Heparin for DVT prophylaxis Protonix for GI prophylaxis Discharge Planning Not yet cleared by GI specialist or Nephrology. Romaine Bowden MD Jan 14, 2017 15:23
[2017-01-15] VITALS (12 sets, daily range): BP systolic 130–158; BP diastolic 80–87; PULSE 62–99; RESP 17–33; TEMP 98.6–99.7; O2SAT 90–100
[2017-01-15] MEDS: SODIUM CHLORIDE 0.9% FLUSH 5 ML FLUSH IV FLUSH PRN (00:01)
[2017-01-15] MEDS: INSULIN NovoLIN REGULAR SUPPLEMENTAL SCALE SQ SCH ×7 (00:11→23:00)
[2017-01-15] MEDS: CHLORHEXIDINE GLUCONATE 2 % 1 PACK (2 CLOTHS) TOP SCH (04:00)
[2017-01-15] MEDS: DIAZEPAM 10 MG TAB PO PRN ×3 (04:10→20:31)
[2017-01-15] MEDS: MORPHINE SULFATE 4 MG/ML INJ IV PUSH PRN ×5 (04:55→20:49)
[2017-01-15] MEDS: LEVOTHYROXINE SODIUM 25 MCG TAB PO SCH (04:55)
[2017-01-15 05:36] LABS: HEMATOCRIT 25.4 % (35.0-46.0)
[2017-01-15 05:55] LABS: MAGNESIUM 1.8 MG/DL (1.5-2.5); POTASSIUM 3.5 MEQ/L (3.5-5.1)
[2017-01-15] MEDS: POTASSIUM CL 40 MEQ/30 ML LIQ UDC NG SCH (09:00)
[2017-01-15] MEDS: MAGNESIUM OXIDE 400 MG TAB PO SCH ×2 (09:24→20:31)
[2017-01-15] MEDS: SUCRALFATE 1 GM/10 ML CUP PO SCH ×4 (09:24→20:26)
[2017-01-15] MEDS: PANTOPRAZOLE SODIUM 40 MG VIAL IV SCH (09:24)
[2017-01-15] MEDS: POTASSIUM PHOSPHATE MONOBASIC 500 MG TAB PO SCH ×2 (09:25→20:31)
[2017-01-15] MEDS: ONDANSETRON HCL 4 MG/2 ML VIAL IV PRN (09:25)
[2017-01-15] MEDS: POTASSIUM CHLORIDE 20 MEQ CONTROLLED RELEASE TAB PO SCH ×2 (09:25→20:28)
[2017-01-15] MEDS: HYDROCORTISONE SOD SUCCINATE 100 MG VIAL IV PUSH SCH ×3 (09:26→18:21)
[2017-01-15] MEDS: SODIUM CHLORIDE 0.9% FLUSH 5 ML FLUSH IV FLUSH SCH ×2 (09:26→20:26)
[2017-01-15] MEDS: POTASSIUM CHLOR 40 MEQ PREMIX 100 ML IV PRN (09:33)
--- NOTE | 2017-01-15 13:53 | HHI.PR ---
Subjective Remarks This is a pleasant 41 y/o Female with multiple admissions to ICU for severe hypokalemia, as per patient during the last 18 months she is been in Intensive care for eight months, Her symptoms she states started back in July or August of last year where she noticed hair loss, weight loss, fatigue, nausea, vomiting, diarrhea. unintentional has Gastroparesis, Ulcerative Colitis, Lupus, Bipolar disorder, tingling sensation on hands and feet, started to lactate and she is non . Critical Care notes. 01/04 Patient is lying in bed in NAD. Afebrile. K level 1.5 this morning. 3/ No acute events overnight. Awake and alert. K 2.2 today 01/06 Patient is lying in bed in NAD. K 2.6 this morning. 3/ No acute events overnight. Afebrile. 01/09 patient seen in her bedroom in Intensive care unit asked to continue management by Hospitalist, discussed with CT abdomen Normal. last year had Colonoscopy showed colonic ulcer, asked for new EGD and Colonoscopy later today, has Anemia GI specialist recommended transfusion as needed, Nephrology specialist following for Acute Kidney injury and severe hypokalemia, EGD showed severe Gastritis and Esophagitis, was not possible to perform the Colonoscopy recommended to continue antibiotics, Carafate, PPI, Magnesium Citrate Doctor Alvarado Lucero following for GI, appreciated. 01/10 Patient stable seen and discussed with patient frustrated wanted me to see some pictures in her phone. continue replacement will have her Colonoscopy once colon prep 01/11 seen in her bedroom today potassium 3.3, Phosphorus 1.8 replacing, encourage activity. 01/12 Today seen in the room in the presence of nurse Miss Kolb, continue Electrolyte replacement asked to get Valium she uses 10 mg q 8 to 12 hours PRN for Anxiety. 01/13 Seen in the room in the presence of nurse Miss Faustin appreciated, continue Potassium and Phosphorus replacement, adjusted dosages of Electrolytes by mouth and pain Medicine. 01/14 Patient stable seen in the room in the presence at all times of nurse miss Faustin appreciated patient improving condition continue scheduled dosages of 01/15 Stable no complaint, improving general condition, replaced Phosphorus and Potassium okay to transfer to Medical Surgical floor. Objective Vital Signs Date Time Temp Pulse Resp B/P Pulse Ox O2 Delivery O2 Flow Rate FiO2 01/15/17 12:00 75 01/15/17 10:00 65 01/15/17 08:00 71 01/15/17 06:00 62 01/15/17 05:31 17 01/15/17 05:31 17 01/15/17 04:00 73 01/15/17 04:00 98.9 73 17 136/80 100 01/15/17 02:00 66 01/15/17 00:00 95 01/15/17 00:00 98.8 95 33 130/80 99 01/14/17 22:00 73 01/14/17 21:19 98 21 01/14/17 20:00 99.0 100 23 157/88 92 01/14/17 20:00 100 01/14/17 18:00 74 01/14/17 16:00 98.5 66 17 132/77 95 01/14/17 16:00 75 01/14/17 14:00 74 I/O 01/14/17 01/14/17 01/14/17 01/15/17 01/15/17 01/15/17 07:00 15:00 23:00 07:00 15:00 23:00 Intake Total 360 ml 1000 ml 600 ml Balance 360 ml 1000 ml 600 ml Intake Oral 360 ml 1000 ml 600 ml # Voids 3 4 2 # Bowel Movements 0 0 Result Diagram: 01/15/17 0450 01/15/17 0450 Imaging Last Impressions Chest X-Ray 01/13/17 0000 Signed Impressions: Service Date/Time: Friday, January 13, 2017 13:05 - CONCLUSION: Satisfactory position of right upper extremity PICC line. No evidence of acute cardio pulmonary process. Maged Verde MD Brain MRI 01/07/17 1032 Signed Impressions: Service Date/Time: Saturday, January 07, 2017 10:57 - CONCLUSION: No intracranial abnormality is identified. No pituitary gland mass is seen. Brian Zhou MD Thyroid Ultrasound 01/04/17 0000 Signed Impressions: Service Date/Time: Wednesday, January 04, 2017 11:43 - CONCLUSION: Scattered small cystic areas in both lobes of thyroid. Nathaniel Porter MD FACR Renal Ultrasound 01/03/17 1218 Signed Impressions: Service Date/Time: Tuesday, January 03, 2017 12:35 - CONCLUSION: Normal examination except for slight increased echogenicity to both renal cortices suggesting mild chronic medical renal disease. Feliz Leung MD Abdomen/Pelvis CT 01/03/17 0000 Signed Impressions: Service Date/Time: Tuesday, January 03, 2017 09:49 - CONCLUSION: Normal examination. Dense stool throughout distended colon Feliz Leung MD Procedures EGD showed Severe Gastritis and Esophagitis. Other Results Laboratory Tests Test 01/12/17 01/15/17 05:12 04:50 White Blood Count 13.8 TH/MM3 Red Blood Count 3.17 MIL/MM3 Mean Corpuscular Volume 88.2 FL Mean Corpuscular Hemoglobin 28.5 PG Mean Corpuscular Hemoglobin 32.3 % Concent Red Cell Distribution Width 16.5 % Platelet Count 203 TH/MM3 Mean Platelet Volume 8.0 FL Neutrophils (%) (Auto) 85.4 % Lymphocytes (%) (Auto) 9.9 % Monocytes (%) (Auto) 4.0 % Eosinophils (%) (Auto) 0.5 % Basophils (%) (Auto) 0.2 % Neutrophils # (Auto) 11.8 TH/MM3 Lymphocytes # (Auto) 1.4 TH/MM3 Monocytes # (Auto) 0.5 TH/MM3 Eosinophils # (Auto) 0.1 TH/MM3 Basophils # (Auto) 0.0 TH/MM3 CBC Comment DIFF FINAL Differential Comment Hematology Comments Sodium Level 144 MEQ/L Chloride Level 107 MEQ/L Carbon Dioxide Level 26.3 MEQ/L Anion Gap 11 MEQ/L Blood Urea Nitrogen 6 MG/DL Creatinine 0.65 MG/DL Estimat Glomerular Filtration 101 ML/MIN Rate Random Glucose 94 MG/DL Calcium Level 8.1 MG/DL Hemoglobin 8.1 GM/DL Hematocrit 25.4 % Potassium Level 3.5 MEQ/L Phosphorus Level 2.2 MG/DL Magnesium Level 1.8 MG/DL Objective Remarks GENERAL: Patient is lying in bed in NAD HEENT: Normocephalic. Atraumatic. Pupils equal, round, reactive, conjugate. NECK: Neck is midline. There is no JVD. CHEST: Equal chest rise. Clear to auscultation bilaterally. CARDIOVASCULAR: Heart rate, regular rhythm. S1 and S2 without appreciable murmurs. ABDOMEN: Soft, non tender, no guarding or rebound. MUSCULOSKELETAL: No Clubbing, Cyanosis or edema. NEUROLOGICAL: Alert and oriented no focal deficits. Medications and IVs Current Medications Medications (Trade) Dose Ordered Sig/Osito Route Start Time Stop Time Status Last Admin (NS Flush) 2 ml UNSCH PRN IV FLUSH 01/03/17 12:00 01/15/17 00:01 (NS Flush) 2 ml BID IV FLUSH 01/03/17 21:00 01/15/17 09:26 (Protonix Inj) 40 mg DAILY IV 01/04/17 09:00 01/15/17 09:24 (Zofran Inj) 4 mg Q6H PRN IV 01/03/17 12:00 01/15/17 09:25 (Heparin Inj) 5,000 units Q8H SQ 01/03/17 12:00 Hold 01/08/17 20:06 Miscellaneous Information 1 Q361D XX 01/03/17 12:00 (Chlorhexidine 2% Cloth) Taper DAILY@04 TOP 01/04/17 04:00 12/31/17 03:59 01/14/17 04:00 Chlorhexidine Gluconate 3 pack 3 pack UNSCH PRN TOP 01/03/17 12:00 Potassium Chloride 100 ml @ 50 mls/hr Q2H PRN IV 01/04/17 09:45 01/15/17 09:33 (KCl 20 Meq Premix Inj) 100 ml @ 50 mls/hr Q2H PRN IV 01/04/17 09:45 01/12/17 21:06 Potassium Chloride 40 meq 40 meq UNSCH PRN PO/TUBE 01/04/17 09:45 Potassium Chloride 100 ml @ 25 mls/hr UNSCH PRN IV 01/04/17 09:45 Potassium Chloride 100 ml @ 50 mls/hr Q2H PRN IV 01/04/17 09:45 01/04/17 10:34 (Magnesium Sulfate Inj/NS Inj) 100 ml @ 50 mls/hr UNSCH PRN IV 01/04/17 09:45 Magnesium Oxide 800 mg 800 mg UNSCH PRN PO 01/04/17 09:45 (Magnesium Sulfate Inj/NS Inj) 100 ml @ 50 mls/hr UNSCH PRN IV 01/04/17 09:45 Potassium Phosphate 2000 mg 2,000 mg Q4H PRN PO 01/04/17 09:45 01/11/17 20:20 (Sodium Phosphate Inj/NS 250 ml Inj) 250 ml @ 42 mls/hr UNSCH PRN IV 01/04/17 09:45 01/15/17 09:26 (KCl 40 Meq/30 ml Liq) 40 meq UNSCH PRN PO/TUBE 01/04/17 09:45 01/12/17 23:36 Potassium Phosphate 2000 mg 2,000 mg UNSCH PRN PO/TUBE 01/04/17 09:45 01/08/17 21:54 (Potassium Phosphate Inj/NS 250 ml Inj) 260 ml @ 42 mls/hr UNSCH PRN IV 01/04/17 09:45 01/08/17 10:15 (D50w (Vial) Inj) 25 ml UNSCH PRN IV PUSH 01/04/17 10:45 (Glucagon Inj) 1 mg UNSCH PRN OTHER 01/04/17 10:45 (NovoLIN R SUPPLEMENTAL SCALE) 1 Q4H SQ 01/04/17 11:00 01/15/17 11:00 (Morphine Inj) 1 mg Q4H PRN IV PUSH 01/04/17 11:00 01/15/17 09:25 (Carafate Liq) 1 gm ACHS PO 01/06/17 16:00 01/15/17 11:27 (Mag-Ox) 400 mg Q12HR PO 01/07/17 21:00 01/15/17 09:24 (KCl 40 Meq/30 ml Liq) 40 meq DAILY NG 01/08/17 09:00 01/08/17 08:18 (Synthroid) 25 mcg DAILY@0600 PO 01/08/17 08:15 01/15/17 04:55 (SoluCORTEF INJ) 50 mg Q8H IV PUSH 01/08/17 09:00 01/15/17 09:26 (NS Flush) See Protocol DAILY IVF 01/14/17 09:00 01/15/17 09:26 (NS Flush) See Protocol UNSCH PRN IVF 01/13/17 13:15 (Heparin Central Flush) See Protocol DAILY IVF 01/14/17 09:00 01/15/17 09:00 (Heparin Central Flush) See Protocol UNSCH PRN IVF 01/13/17 13:15 (NS Flush) See Protocol UNSCH PRN IVF 01/13/17 13:15 (Valium) 10 mg Q8HR PRN PO 01/13/17 14:00 01/15/17 13:07 (K-Phos) 1,000 mg Q12HR PO 01/13/17 14:00 01/15/17 09:25 (Roxicodone) 5 mg Q4H PRN PO 01/13/17 17:00 01/15/17 09:24 (KCl) 40 meq Q12HR PO 01/14/17 21:00 01/15/17 09:25 A/P Assessment and Plan 1. Electrolyte derangement/severe Hypokalemia no clear etiology continue replacement. has also Phosphorus depletion receiving replacement. adjusted by mouth replacement and following. 2. Leukocytosis Steroid related. 3. Intractable nausea and vomit/Chronic abdominal pain Improving, GI specialist following EGD performed found Gastritis 4. Anemia transfuse as needed. Hemoglobin 8.1 5. Chronic Abdominal pain EGD found Severe esophagitis and gastritis, continue Carafate and PPIs 6. Bipolar Disorder and Anxiety Disorder.MRI no acute abnormalities, no Pituitary mass Cleared for discharge by Psychiatry specialist. 7. Was on Empiric antibiotic management but no signs of infection was on Aztreonam and Flagyl Leukocytosis may be related to Steroid use, blood cultures negative. 8. Euthyroid Sick syndrome US thyroid showed Small Cystic Areas in both lobes of thyroid. thyroid peroxidase ab, ELLE negative. on Steroids to continue tapering. on Levothyroxine Discussed with patient in the room and nurse Miss Faustin continue present management. Transfer to General floor SCDs, SQ Heparin for DVT prophylaxis Protonix for GI prophylaxis Discharge Planning Not yet cleared by GI specialist or Nephrology. Romaine Bowden MD Jan 15, 2017 13:53
[2017-01-16] VITALS (8 sets, daily range): BP systolic 126–159; BP diastolic 74–97; PULSE 75–99; RESP 18–36; TEMP 98.6–99.7; O2SAT 94–99
[2017-01-16] MEDS: HYDROCORTISONE SOD SUCCINATE 100 MG VIAL IV PUSH SCH ×2 (01:06→09:12)
[2017-01-16] MEDS: MORPHINE SULFATE 4 MG/ML INJ IV PUSH PRN ×4 (01:08→13:15)
[2017-01-16 03:21] LABS: HEMATOCRIT 26.3 % (35.0-46.0)
[2017-01-16 03:42] LABS: MAGNESIUM 1.9 MG/DL (1.5-2.5); POTASSIUM 3.2 MEQ/L (3.5-5.1)
[2017-01-16] MEDS: CHLORHEXIDINE GLUCONATE 2 % 1 PACK (2 CLOTHS) TOP SCH (04:00)
[2017-01-16] MEDS: DIAZEPAM 10 MG TAB PO PRN ×3 (04:58→20:20)
[2017-01-16] MEDS: LEVOTHYROXINE SODIUM 25 MCG TAB PO SCH (04:59)
[2017-01-16] MEDS: INSULIN NovoLIN REGULAR SUPPLEMENTAL SCALE SQ SCH ×3 (05:06→23:00)
[2017-01-16] MEDS: POTASSIUM CHLOR 40 MEQ PREMIX 100 ML IV PRN (06:32)
[2017-01-16] MEDS: SUCRALFATE 1 GM/10 ML CUP PO SCH ×4 (07:00→20:21)
[2017-01-16] MEDS: POTASSIUM CHLOR 20 MEQ PREMIX 100 ML IV PRN (07:00)
--- NOTE | 2017-01-16 07:46 | HHI.PR ---
Subjective Remarks This is a pleasant 41 y/o Female with multiple admissions to ICU for severe hypokalemia, as per patient during the last 18 months she is been in Intensive care for eight months, Her symptoms she states started back in July or August of last year where she noticed hair loss, weight loss, fatigue, nausea, vomiting, diarrhea. unintentional has Gastroparesis, Ulcerative Colitis, Lupus, Bipolar disorder, tingling sensation on hands and feet, started to lactate and she is non . Critical Care notes. 01/04 Patient is lying in bed in NAD. Afebrile. K level 1.5 this morning. 3/ No acute events overnight. Awake and alert. K 2.2 today 01/06 Patient is lying in bed in NAD. K 2.6 this morning. 3/ No acute events overnight. Afebrile. 01/09 patient seen in her bedroom in Intensive care unit asked to continue management by Hospitalist, discussed with CT abdomen Normal. last year had Colonoscopy showed colonic ulcer, asked for new EGD and Colonoscopy later today, has Anemia GI specialist recommended transfusion as needed, Nephrology specialist following for Acute Kidney injury and severe hypokalemia, EGD showed severe Gastritis and Esophagitis, was not possible to perform the Colonoscopy recommended to continue antibiotics, Carafate, PPI, Magnesium Citrate Doctor Alvarado Lucero following for GI, appreciated. 01/10 Patient stable seen and discussed with patient frustrated wanted me to see some pictures in her phone. continue replacement will have her Colonoscopy once colon prep 01/11 seen in her bedroom today potassium 3.3, Phosphorus 1.8 replacing, encourage activity. 01/12 Today seen in the room in the presence of nurse Miss Kolb, continue Electrolyte replacement asked to get Valium she uses 10 mg q 8 to 12 hours PRN for Anxiety. 01/13 Seen in the room in the presence of nurse Miss Faustin appreciated, continue Potassium and Phosphorus replacement, adjusted dosages of Electrolytes by mouth and pain Medicine. 01/14 Patient stable seen in the room in the presence at all times of nurse miss Faustin appreciated patient improving condition continue scheduled dosages of 01/15 Stable no complaint, improving general condition, replaced Phosphorus and Potassium okay to transfer to Medical Surgical floor. 01/16 Seen in the presence of nurse miss Rhodes appreciated, removed Morphine IV will continue by mouth pain medicine and replace electrolytes today, continue replacement by mouth and following for possible discharge in am tomorrow. Objective Vital Signs Date Time Temp Pulse Resp B/P Pulse Ox O2 Delivery O2 Flow Rate FiO2 01/16/17 06:07 32 01/16/17 06:00 92 01/16/17 05:07 25 01/16/17 04:00 99.1 99 36 138/82 94 01/16/17 04:00 99 01/16/17 02:00 77 01/16/17 00:31 98 21 01/16/17 00:00 99.7 75 27 148/80 99 01/16/17 00:00 75 01/15/17 22:00 91 01/15/17 20:00 99.7 99 30 144/83 90 01/15/17 20:00 99 01/15/17 18:00 68 01/15/17 16:00 98.6 74 18 158/85 97 01/15/17 16:00 72 01/15/17 14:00 70 01/15/17 12:00 98.8 67 18 154/87 98 01/15/17 12:00 75 01/15/17 10:00 65 01/15/17 08:00 98.6 62 22 145/87 98 01/15/17 08:00 71 I/O 01/15/17 01/15/17 01/15/17 01/16/17 01/16/17 01/16/17 07:00 15:00 23:00 07:00 15:00 23:00 Intake Total 600 ml 220 ml 500 ml 240 ml Output Total 1000 ml Balance 600 ml 220 ml 500 ml -760 ml Intake Oral 600 ml 500 ml 240 ml IV Total 220 ml Output Urine Total 1000 ml # Voids 2 4 2 # Bowel Movements 0 0 0 Result Diagram: 01/16/17 0300 01/16/17 0300 Imaging Last Impressions Chest X-Ray 01/13/17 0000 Signed Impressions: Service Date/Time: Friday, January 13, 2017 13:05 - CONCLUSION: Satisfactory position of right upper extremity PICC line. No evidence of acute cardio pulmonary process. Maged Verde MD Brain MRI 01/07/17 1032 Signed Impressions: Service Date/Time: Saturday, January 07, 2017 10:57 - CONCLUSION: No intracranial abnormality is identified. No pituitary gland mass is seen. Brian Zhou MD Thyroid Ultrasound 01/04/17 0000 Signed Impressions: Service Date/Time: Wednesday, January 04, 2017 11:43 - CONCLUSION: Scattered small cystic areas in both lobes of thyroid. Nathaniel Porter MD FACR Renal Ultrasound 01/03/17 1218 Signed Impressions: Service Date/Time: Tuesday, January 03, 2017 12:35 - CONCLUSION: Normal examination except for slight increased echogenicity to both renal cortices suggesting mild chronic medical renal disease. Feliz Leung MD Abdomen/Pelvis CT 01/03/17 0000 Signed Impressions: Service Date/Time: Tuesday, January 03, 2017 09:49 - CONCLUSION: Normal examination. Dense stool throughout distended colon Feliz Leung MD Procedures EGD showed Severe Gastritis and Esophagitis. Other Results Laboratory Tests Test 01/12/17 01/16/17 05:12 03:00 White Blood Count 13.8 TH/MM3 Red Blood Count 3.17 MIL/MM3 Mean Corpuscular Volume 88.2 FL Mean Corpuscular Hemoglobin 28.5 PG Mean Corpuscular Hemoglobin 32.3 % Concent Red Cell Distribution Width 16.5 % Platelet Count 203 TH/MM3 Mean Platelet Volume 8.0 FL Neutrophils (%) (Auto) 85.4 % Lymphocytes (%) (Auto) 9.9 % Monocytes (%) (Auto) 4.0 % Eosinophils (%) (Auto) 0.5 % Basophils (%) (Auto) 0.2 % Neutrophils # (Auto) 11.8 TH/MM3 Lymphocytes # (Auto) 1.4 TH/MM3 Monocytes # (Auto) 0.5 TH/MM3 Eosinophils # (Auto) 0.1 TH/MM3 Basophils # (Auto) 0.0 TH/MM3 CBC Comment DIFF FINAL Differential Comment Hematology Comments Sodium Level 144 MEQ/L Chloride Level 107 MEQ/L Carbon Dioxide Level 26.3 MEQ/L Anion Gap 11 MEQ/L Blood Urea Nitrogen 6 MG/DL Creatinine 0.65 MG/DL Estimat Glomerular Filtration 101 ML/MIN Rate Random Glucose 94 MG/DL Calcium Level 8.1 MG/DL Hemoglobin 8.4 GM/DL Hematocrit 26.3 % Potassium Level 3.2 MEQ/L Phosphorus Level 2.3 MG/DL Magnesium Level 1.9 MG/DL Objective Remarks GENERAL: Patient is lying in bed in NAD HEENT: Normocephalic. Atraumatic. Pupils equal, round, reactive, conjugate. NECK: Neck is midline. There is no JVD. CHEST: Equal chest rise. Clear to auscultation bilaterally. CARDIOVASCULAR: Heart rate, regular rhythm. S1 and S2 without appreciable murmurs. ABDOMEN: Soft, non tender, no guarding or rebound. MUSCULOSKELETAL: No Clubbing, Cyanosis or edema. NEUROLOGICAL: Alert and oriented no focal deficits. Medications and IVs Current Medications Medications (Trade) Dose Ordered Sig/Osito Route Start Time Stop Time Status Last Admin (NS Flush) 2 ml UNSCH PRN IV FLUSH 01/03/17 12:00 01/15/17 00:01 (NS Flush) 2 ml BID IV FLUSH 01/03/17 21:00 01/15/17 20:26 (Protonix Inj) 40 mg DAILY IV 01/04/17 09:00 01/15/17 09:24 (Zofran Inj) 4 mg Q6H PRN IV 01/03/17 12:00 01/15/17 09:25 (Heparin Inj) 5,000 units Q8H SQ 01/03/17 12:00 Hold 01/08/17 20:06 Miscellaneous Information 1 Q361D XX 01/03/17 12:00 (Chlorhexidine 2% Cloth) Taper DAILY@04 TOP 01/04/17 04:00 12/31/17 03:59 01/16/17 04:00 Chlorhexidine Gluconate 3 pack 3 pack UNSCH PRN TOP 01/03/17 12:00 Potassium Chloride 100 ml @ 50 mls/hr Q2H PRN IV 01/04/17 09:45 01/16/17 06:32 (KCl 20 Meq Premix Inj) 100 ml @ 50 mls/hr Q2H PRN IV 01/04/17 09:45 01/12/17 21:06 Potassium Chloride 40 meq 40 meq UNSCH PRN PO/TUBE 01/04/17 09:45 Potassium Chloride 100 ml @ 25 mls/hr UNSCH PRN IV 01/04/17 09:45 Potassium Chloride 100 ml @ 50 mls/hr Q2H PRN IV 01/04/17 09:45 01/04/17 10:34 (Magnesium Sulfate Inj/NS Inj) 100 ml @ 50 mls/hr UNSCH PRN IV 01/04/17 09:45 Magnesium Oxide 800 mg 800 mg UNSCH PRN PO 01/04/17 09:45 (Magnesium Sulfate Inj/NS Inj) 100 ml @ 50 mls/hr UNSCH PRN IV 01/04/17 09:45 Potassium Phosphate 2000 mg 2,000 mg Q4H PRN PO 01/04/17 09:45 01/11/17 20:20 (Sodium Phosphate Inj/NS 250 ml Inj) 250 ml @ 42 mls/hr UNSCH PRN IV 01/04/17 09:45 01/15/17 09:26 (KCl 40 Meq/30 ml Liq) 40 meq UNSCH PRN PO/TUBE 01/04/17 09:45 01/12/17 23:36 Potassium Phosphate 2000 mg 2,000 mg UNSCH PRN PO/TUBE 01/04/17 09:45 01/08/17 21:54 (Potassium Phosphate Inj/NS 250 ml Inj) 260 ml @ 42 mls/hr UNSCH PRN IV 01/04/17 09:45 01/08/17 10:15 (D50w (Vial) Inj) 25 ml UNSCH PRN IV PUSH 01/04/17 10:45 (Glucagon Inj) 1 mg UNSCH PRN OTHER 01/04/17 10:45 (NovoLIN R SUPPLEMENTAL SCALE) 1 Q4H SQ 01/04/17 11:00 01/16/17 05:06 (Morphine Inj) 1 mg Q4H PRN IV PUSH 01/04/17 11:00 01/16/17 04:58 (Carafate Liq) 1 gm ACHS PO 01/06/17 16:00 01/15/17 20:26 (Mag-Ox) 400 mg Q12HR PO 01/07/17 21:00 01/15/17 20:31 (KCl 40 Meq/30 ml Liq) 40 meq DAILY NG 01/08/17 09:00 01/08/17 08:18 (Synthroid) 25 mcg DAILY@0600 PO 01/08/17 08:15 01/16/17 04:59 (SoluCORTEF INJ) 50 mg Q8H IV PUSH 01/08/17 09:00 01/16/17 01:06 (NS Flush) See Protocol DAILY IVF 01/14/17 09:00 01/15/17 09:26 (NS Flush) See Protocol UNSCH PRN IVF 01/13/17 13:15 (Heparin Central Flush) See Protocol DAILY IVF 01/14/17 09:00 01/15/17 09:00 (Heparin Central Flush) See Protocol UNSCH PRN IVF 01/13/17 13:15 (NS Flush) See Protocol UNSCH PRN IVF 01/13/17 13:15 (Valium) 10 mg Q8HR PRN PO 01/13/17 14:00 01/16/17 04:58 (K-Phos) 1,000 mg Q12HR PO 01/13/17 14:00 01/15/17 20:31 (Roxicodone) 5 mg Q4H PRN PO 01/13/17 17:00 01/16/17 04:57 (KCl) 40 meq Q12HR PO 01/14/17 21:00 01/15/17 20:28 A/P Assessment and Plan 1. Electrolyte derangement/severe Hypokalemia no clear etiology continue replacement. has also Phosphorus depletion receiving replacement. adjusted by mouth replacement and following. 2. Leukocytosis Steroid related. 3. Intractable nausea and vomit/Chronic abdominal pain Improved, GI specialist following EGD performed found Gastritis. 4. Anemia transfuse as needed. Hemoglobin 8.4 5. Chronic Abdominal pain EGD found Severe esophagitis and gastritis, continue Carafate and PPIs 6. Bipolar Disorder and Anxiety Disorder.MRI no acute abnormalities, no Pituitary mass Cleared for discharge by Psychiatry specialist. 7. Was on Empiric antibiotic management but no signs of infection was on Aztreonam and Flagyl Leukocytosis may be related to Steroid use, blood cultures negative. 8. Euthyroid Sick syndrome US thyroid showed Small Cystic Areas in both lobes of thyroid. thyroid peroxidase ab, ELLE negative. on Steroids to continue tapering. on Levothyroxine Discussed with patient in the room and nurse Miss Rhodes and Charge Nurse, discontinue Pain Medicine IV, replaced and following, continue by mouth replacement and discharge tomorrow SCDs, SQ Heparin for DVT prophylaxis Protonix for GI prophylaxis Discharge Planning Expected by Tomorrow. Romaine Bowden MD Jan 16, 2017 07:46
[2017-01-16] MEDS: POTASSIUM PHOSPHATE MONOBASIC 500 MG TAB PO SCH ×2 (09:00→20:19)
[2017-01-16] MEDS: SODIUM CHLORIDE 0.9% FLUSH 5 ML FLUSH IV FLUSH SCH ×2 (09:00→20:21)
[2017-01-16] MEDS: POTASSIUM CL 40 MEQ/30 ML LIQ UDC NG SCH (09:00)
[2017-01-16] MEDS: MAGNESIUM OXIDE 400 MG TAB PO SCH ×2 (09:11→20:20)
[2017-01-16] MEDS: POTASSIUM CHLORIDE 20 MEQ CONTROLLED RELEASE TAB PO SCH ×2 (09:11→20:20)
[2017-01-16] MEDS: POTASSIUM PHOSPHATE MONOBASIC 500 MG TAB PO PRN (09:11)
[2017-01-16] MEDS: PANTOPRAZOLE SODIUM 40 MG VIAL IV SCH (09:12)
[2017-01-17] VITALS: BP 127/75; PULSE 84; RESP 17; TEMP 98.6; O2SAT 99
[2017-01-17] MEDS: INSULIN NovoLIN REGULAR SUPPLEMENTAL SCALE SQ SCH ×3 (03:00→11:00)
[2017-01-17] MEDS: DIAZEPAM 10 MG TAB PO PRN ×3 (04:34→21:03)
[2017-01-17] MEDS: LEVOTHYROXINE SODIUM 25 MCG TAB PO SCH (04:34)
[2017-01-17 04:39] VITALS: BP 111/80; PULSE 96; RESP 18; TEMP 97.3; O2SAT 99
[2017-01-17 05:18] LABS: MAGNESIUM 1.8 MG/DL (1.5-2.5); POTASSIUM 3.4 MEQ/L (3.5-5.1)
[2017-01-17] MEDS: SUCRALFATE 1 GM/10 ML CUP PO SCH ×4 (07:00→21:03)
[2017-01-17 08:00] VITALS: BP 127/76; PULSE 88; RESP 16; TEMP 98.2; O2SAT 100
[2017-01-17] MEDS: PANTOPRAZOLE SODIUM 40 MG VIAL IV SCH (09:08)
[2017-01-17] MEDS: MAGNESIUM OXIDE 400 MG TAB PO SCH ×2 (09:08→21:03)
[2017-01-17] MEDS: POTASSIUM CHLORIDE 20 MEQ CONTROLLED RELEASE TAB PO SCH ×2 (09:08→21:03)
[2017-01-17] MEDS: POTASSIUM PHOSPHATE MONOBASIC 500 MG TAB PO SCH ×2 (09:08→21:03)
[2017-01-17] MEDS: ONDANSETRON HCL 4 MG/2 ML VIAL IV PRN (09:09)
[2017-01-17] MEDS: HYDROCORTISONE SOD SUCCINATE 100 MG VIAL IV PUSH SCH ×2 (09:09→21:03)
[2017-01-17] MEDS: SODIUM CHLORIDE 0.9% FLUSH 5 ML FLUSH IV FLUSH SCH ×2 (09:10→21:02)
--- NOTE | 2017-01-17 09:35 | HHI.PR ---
Subjective Remarks The patient believes she is passing bladder stones. She says that she wants to know why her potassium level is always so low. She says she is unable to go home today but would be able to go home tomorrow. She believes she is eating okay. Objective Vitals Vital Signs Date Time Temp Pulse Resp B/P Pulse Ox O2 Delivery O2 Flow Rate FiO2 01/17/17 08:00 98.2 88 16 127/76 100 01/17/17 06:04 16 01/17/17 04:39 97.3 96 18 111/80 99 01/17/17 00:00 98.6 84 17 127/75 99 01/16/17 20:00 98.6 86 18 126/80 99 01/16/17 16:00 98.6 83 20 142/97 99 01/16/17 13:20 20 01/16/17 12:00 98.9 77 22 159/74 95 I/O 01/16/17 01/16/17 01/16/17 01/17/17 01/17/17 01/17/17 07:00 15:00 23:00 07:00 15:00 23:00 Intake Total 240 ml 1335 ml 480 ml Output Total 1000 ml 1250 ml Balance -760 ml 85 ml 480 ml Intake Oral 240 ml 785 ml 480 ml IV Total 550 ml Output Urine Total 1000 ml 1250 ml # Voids 1 5 # Bowel Movements 0 Result Diagram: 01/16/17 0300 01/17/17 0137 Imaging Last Impressions Chest X-Ray 01/13/17 0000 Signed Impressions: Service Date/Time: Friday, January 13, 2017 13:05 - CONCLUSION: Satisfactory position of right upper extremity PICC line. No evidence of acute cardio pulmonary process. Maged Verde MD Brain MRI 01/07/17 1032 Signed Impressions: Service Date/Time: Saturday, January 07, 2017 10:57 - CONCLUSION: No intracranial abnormality is identified. No pituitary gland mass is seen. Brian Zhou MD Thyroid Ultrasound 01/04/17 0000 Signed Impressions: Service Date/Time: Wednesday, January 04, 2017 11:43 - CONCLUSION: Scattered small cystic areas in both lobes of thyroid. Nathaniel Porter MD FACR Renal Ultrasound 01/03/17 1218 Signed Impressions: Service Date/Time: Tuesday, January 03, 2017 12:35 - CONCLUSION: Normal examination except for slight increased echogenicity to both renal cortices suggesting mild chronic medical renal disease. Feliz Leung MD Abdomen/Pelvis CT 01/03/17 0000 Signed Impressions: Service Date/Time: Tuesday, January 03, 2017 09:49 - CONCLUSION: Normal examination. Dense stool throughout distended colon Feliz Leung MD Objective Remarks GENERAL: Patient is alert and oriented. HEENT: Normocephalic. Atraumatic. Pupils equal, round, reactive, conjugate. NECK: Neck is midline. There is no JVD. CHEST: Equal chest rise. Clear to auscultation bilaterally. CARDIOVASCULAR: Heart rate, regular rhythm. S1 and S2 without appreciable murmurs. ABDOMEN: Soft, non tender, no guarding or rebound. MUSCULOSKELETAL: No Clubbing, Cyanosis or edema. NEUROLOGICAL: No focal deficits. PSYCH: Anxious. Medications and IVs Current Medications Medications (Trade) Dose Ordered Sig/Osito Route Start Time Stop Time Status Last Admin (NS Flush) 2 ml UNSCH PRN IV FLUSH 01/03/17 12:00 01/15/17 00:01 (NS Flush) 2 ml BID IV FLUSH 01/03/17 21:00 01/17/17 09:10 (Protonix Inj) 40 mg DAILY IV 01/04/17 09:00 01/17/17 09:08 (Zofran Inj) 4 mg Q6H PRN IV 01/03/17 12:00 01/17/17 09:09 (Heparin Inj) 5,000 units Q8H SQ 01/03/17 12:00 Hold 01/08/17 20:06 (D50w (Vial) Inj) 25 ml UNSCH PRN IV PUSH 01/04/17 10:45 (Glucagon Inj) 1 mg UNSCH PRN OTHER 01/04/17 10:45 (NovoLIN R SUPPLEMENTAL SCALE) 1 Q4H SQ 01/04/17 11:00 01/16/17 05:06 (Carafate Liq) 1 gm ACHS PO 01/06/17 16:00 01/16/17 20:21 (Mag-Ox) 400 mg Q12HR PO 01/07/17 21:00 01/17/17 09:08 (Synthroid) 25 mcg DAILY@0600 PO 01/08/17 08:15 01/17/17 04:34 (NS Flush) See Protocol DAILY IVF 01/14/17 09:00 01/16/17 09:00 (NS Flush) See Protocol UNSCH PRN IVF 01/13/17 13:15 (Heparin Central Flush) See Protocol DAILY IVF 01/14/17 09:00 01/16/17 09:00 (Heparin Central Flush) See Protocol UNSCH PRN IVF 01/13/17 13:15 (NS Flush) See Protocol UNSCH PRN IVF 01/13/17 13:15 (Valium) 10 mg Q8HR PRN PO 01/13/17 14:00 01/17/17 04:34 (K-Phos) 1,000 mg Q12HR PO 01/13/17 14:00 01/17/17 09:08 (Roxicodone) 5 mg Q4H PRN PO 01/13/17 17:00 01/17/17 09:08 (KCl) 40 meq Q12HR PO 01/14/17 21:00 01/17/17 09:08 (SoluCORTEF INJ) 50 mg Q12HR IV PUSH 01/17/17 09:00 01/17/17 09:09 A/P Assessment and Plan 1. Electrolyte derangement/severe Hypokalemia no clear etiology. Has had multiple hospitalizations for the same. No renal wasting per nephrology. - continue replacement and follow labs. 2. Leukocytosis Steroid related. Wean steroids. 3. Intractable nausea and vomit/Chronic abdominal pain Improved, GI following, EGD performed, found gastritis. Continue PPI. 4. Anemia transfuse as needed. 5. Chronic Abdominal pain EGD found gastritis, continue Carafate and PPIs 6. Bipolar Disorder and Anxiety Disorder. MRI no acute abnormalities, no Pituitary mass Cleared for discharge by Psychiatry specialist. 7. Was on Empiric antibiotic management but no signs of infection was on Aztreonam and Flagyl Leukocytosis may be related to Steroid use, blood cultures negative. 8. Euthyroid Sick syndrome US thyroid showed Small Cystic Areas in both lobes of thyroid. thyroid peroxidase ab, ELLE negative. on Steroids to continue tapering. on Levothyroxine Discharge Planning Anticipate d/c home in AM. Kane Waters DO Jan 17, 2017 09:35
[2017-01-17 11:23] LABS: BICARBONATE 27.3 MEQ/L (21.0-32.0); POTASSIUM 3.6 MEQ/L (3.5-5.1)
[2017-01-17 12:00] VITALS: BP 135/77; PULSE 85; RESP 16; TEMP 98; O2SAT 99
[2017-01-17 16:30] VITALS: BP 120/71; PULSE 65; RESP 16; TEMP 97.6; O2SAT 100
[2017-01-17 21:00] VITALS: BP 131/79; PULSE 86; RESP 16; TEMP 98.3; O2SAT 100
[2017-01-18] VITALS (7 sets, daily range): BP systolic 101–135; BP diastolic 68–90; PULSE 82–100; RESP 16–18; TEMP 97.7–99.3; O2SAT 99–100
[2017-01-18 03:46] LABS: MEAN CELL VOLUME 89.4 FL (80.0-100.0); MEAN CORPUSCULAR HEMOGLOBIN 28.1 PG (27.0-34.0); MEAN CORPUSCULAR HGB CONC 31.5 % (32.0-36.0); PLATELET COUNT 250 TH/MM3 (150-450); RED BLOOD COUNT 2.91 MIL/MM3 (4.00-5.30); REVIEW FLAG FINAL; WHITE BLOOD COUNT 16.1 TH/MM3 (4.0-11.0)
[2017-01-18 03:59] LABS: BICARBONATE 26.3 MEQ/L (21.0-32.0); MAGNESIUM 1.7 MG/DL (1.5-2.5); POTASSIUM 3.3 MEQ/L (3.5-5.1)
[2017-01-18] MEDS: DIAZEPAM 10 MG TAB PO PRN ×2 (05:04→13:22)
[2017-01-18] MEDS: LEVOTHYROXINE SODIUM 25 MCG TAB PO SCH (05:04)
[2017-01-18] MEDS: SUCRALFATE 1 GM/10 ML CUP PO SCH ×3 (06:04→15:18)
[2017-01-18] MEDS: ONDANSETRON HCL 4 MG/2 ML VIAL IV PRN (07:11)
[2017-01-18] MEDS: POTASSIUM CHLORIDE 20 MEQ CONTROLLED RELEASE TAB PO SCH (10:59)
[2017-01-18] MEDS: HYDROCORTISONE SOD SUCCINATE 100 MG VIAL IV PUSH SCH (11:00)
[2017-01-18] MEDS: MAGNESIUM OXIDE 400 MG TAB PO SCH (11:00)
[2017-01-18] MEDS: PANTOPRAZOLE SODIUM 40 MG VIAL IV SCH (11:01)
[2017-01-18] MEDS: SODIUM CHLORIDE 0.9% FLUSH 5 ML FLUSH IV FLUSH SCH (11:01)
[2017-01-18] MEDS: POTASSIUM PHOSPHATE MONOBASIC 500 MG TAB PO SCH (11:02)
[2017-01-18] MEDS ORDERED: POTASSIUM CHLORIDE 20 MEQ CONTROLLED RELEASE TAB PO ONE (13:30)
[2017-01-18] MEDS ORDERED: OXYC-392 PO (13:43)
[2017-01-18] MEDS ORDERED: DIAZ10 PO (13:43)
[2017-01-18] MEDS ORDERED: MAGN400T3 PO (13:43)
[2017-01-18] MEDS ORDERED: SUCR1S PO (13:43)
[2017-01-18] MEDS ORDERED: K-PHTAB PO (13:43)
[2017-01-18] MEDS ORDERED: POTA20TA5 PO (13:43)
--- NOTE | 2017-01-18 13:45 | HHI.DCPOC ---
Discharge Care Plan Diagnosis: (1) Post traumatic stress disorder (PTSD) (2) Abdominal pain (3) Hypokalemia (4) Hypomagnesemia (5) Hypophosphatemia (6) Anemia (7) Acute renal failure Goals to Promote Your Health * To prevent worsening of your condition and complications * To maintain your health at the optimal level Directions to Meet Your Goals Take your medications as prescribed Follow your dietary instruction Follow activity as directed Keep your appointments as scheduled Take your immunizations and boosters as scheduled If your symptoms worsen call your PCP, if no PCP go to Urgent Care Center or Emergency Room Smoking is Dangerous to Your Health. Avoid second hand smoke Call the 24-hour hour crisis hotline for domestic abuse at Kane Waters DO Jan 18, 2017 13:45
--- NOTE | 2017-01-18 13:55 | HHI.DS ---
Discharge Summary Admission Date Jan 03, 2017 at 10:33 Discharge Date: Jan 18, 2017 Admitting Diagnosis renal failure, hypokalemia (1) Post traumatic stress disorder (PTSD) ICD Code: F43.10 (2) Hypophosphatemia ICD Code: E83.39 (3) Acute renal failure ICD Code: N17.9 (4) Hypomagnesemia ICD Code: E83.42 (5) Anemia ICD Code: D64.9 (6) Hypokalemia ICD Code: E87.6 Diagnosis: Principal Procedures None. Brief History - From Admission 41yF with a fairly recent history of multiple ICU admissions for severe hypokalemia. Her symptoms she states started back in July or August of last year where she noticed hair loss, weight loss, fatigue, nausea, vomiting, diarrhea. She has now had over 100 pounds of weight loss since last August. She showed me pictures of large clumps of hair that she is lost over this time period. She states that she now carries diagnoses of gastroparesis, ulcerative colitis, lupus, bipolar disorder. She states that she thinks all these diagnoses are wrong, but she has not found anyone that is been able to find an accurate diagnosis. She also states that her teeth have been following out over the same time period. She states she has numbness and tingling, more so in her hands and feet. She states she has intermittent chills, but no fever. She also endorses that more recently over the last few weeks she has started to lactate. She is not , and his pump and section active for more than a year. She denies breast pain. She denies any blood in her stool or hematemesis. She does endorse significant fatigue. She denies chest pain or difficulty breathing. On today's exam, she endorses a very vague crampy pain all over from her chest down to her abdomen, pelvis, back area. She does not know if anything aggravates or relieves the pain. Is very difficult to get a good history because the patient goes off on tangents frequently is hard to tie down to a clear answer to my questions. In emergency department, she was found to have a white count of 22,000 with a left shift, a serum potassium of 1.9, serum sodium 133. Critical care medicine has been consulted to evaluate and manage her severe life -threatening hypokalemia. CBC/BMP: 01/18/17 0305 01/18/17 0305 Significant Findings Laboratory Tests Test 01/16/17 01/17/17 01/17/17 01/18/17 03:00 01:37 10:37 03:05 Hemoglobin 8.4 GM/DL 8.2 GM/DL (11.6-15.3) (11.6-15.3) Hematocrit 26.3 % 26.0 % (35.0-46.0) (35.0-46.0) Potassium Level 3.2 MEQ/L 3.4 MEQ/L 3.3 MEQ/L (3.5-5.1) (3.5-5.1) (3.5-5.1) Phosphorus Level 2.3 MG/DL (2.5-4.9) Creatinine 1.16 MG/DL 1.16 MG/DL (0.50-1.00) (0.50-1.00) Estimat Glomerular Filtration 52 ML/MIN (>89) 52 ML/MIN (>89) Rate Random Glucose 110 MG/DL 115 MG/DL (74-106) (74-106) Calcium Level 8.4 MG/DL 8.1 MG/DL (8.5-10.1) (8.5-10.1) White Blood Count 16.1 TH/MM3 (4.0-11.0) Red Blood Count 2.91 MIL/MM3 (4.00-5.30) Mean Corpuscular Hemoglobin 31.5 % Concent (32.0-36.0) Sodium Level 146 MEQ/L (136-145) Chloride Level 109 MEQ/L (98-107) Blood Urea Nitrogen 22 MG/DL (7-18) Imaging Last Impressions Chest X-Ray 01/13/17 0000 Signed Impressions: Service Date/Time: Friday, January 13, 2017 13:05 - CONCLUSION: Satisfactory position of right upper extremity PICC line. No evidence of acute cardio pulmonary process. Maged Verde MD Brain MRI 01/07/17 1032 Signed Impressions: Service Date/Time: Saturday, January 07, 2017 10:57 - CONCLUSION: No intracranial abnormality is identified. No pituitary gland mass is seen. Brian Zhou MD Thyroid Ultrasound 01/04/17 0000 Signed Impressions: Service Date/Time: Wednesday, January 04, 2017 11:43 - CONCLUSION: Scattered small cystic areas in both lobes of thyroid. Nathaniel Porter MD FACR Renal Ultrasound 01/03/17 1218 Signed Impressions: Service Date/Time: Tuesday, January 03, 2017 12:35 - CONCLUSION: Normal examination except for slight increased echogenicity to both renal cortices suggesting mild chronic medical renal disease. Feliz Leung MD Abdomen/Pelvis CT 01/03/17 0000 Signed Impressions: Service Date/Time: Tuesday, January 03, 2017 09:49 - CONCLUSION: Normal examination. Dense stool throughout distended colon Feliz Leung MD PE at Discharge GENERAL: Patient is alert and oriented. HEENT: Normocephalic. Atraumatic. Pupils equal, round, reactive, conjugate. NECK: Neck is midline. There is no JVD. CHEST: Equal chest rise. Clear to auscultation bilaterally. CARDIOVASCULAR: Heart rate, regular rhythm. S1 and S2 without appreciable murmurs. ABDOMEN: Soft, non tender, no guarding or rebound. MUSCULOSKELETAL: No Clubbing, Cyanosis or edema. NEUROLOGICAL: No focal deficits. PSYCH: Anxious. Pt update on day of discharge The pt said she needed pain meds and anxiety meds upon discharge. She would like to follow up with [facility]. Discussed with nursing. Hospital Course Electrolyte derangement/severe Hypokalemia/ hypomagnesemia/ hypophosphatemia Has had multiple hospitalizations for the same. No renal wasting per nephrology. She will continue to take supplements upon discharge. She will repeat labs in 3-5 days and follow up as an outpt. Intractable nausea and vomiting/Chronic abdominal pain GI was consulted. EGD and colonoscopy were performed which revealed gastritis. She will continue a PPI and Carafate. She will follow up with GI as an outpt. Bipolar Disorder and Anxiety Disorder MRI with no acute abnormalities. Cleared for discharge by psychiatry. She will be discharged on Valium. Euthyroid Sick syndrome US thyroid showed Small Cystic Areas in both lobes of thyroid. Thyroid peroxidase ab, ELLE negative. On steroid taper. Will follow up as an outpt. Pt Condition on Discharge: Stable Discharge Disposition: Discharge Home Discharge Time: > 30 minutes Discharge Instructions DIET: Follow Instructions for: As Tolerated, No Restrictions Activities you can perform: Weight Bearing as Marisol Follow up Referrals: Gastroenterology - 1 Week with Alvarado Lucero MD Nephrology - 2 Weeks Pain Management - 1 Week PCP Follow-up - 1 Week Urology - 1 Week New Orders: BASIC METABOLIC PROF - 3-5 Days MAGNESIUM (MG) - 3-5 Days PHOSPHORUS (PO4) - 3-5 Days New Medications: Pantoprazole (Pantoprazole) 40 Mg Tab 40 MG PO DAILY Reflux #30 Ref 0 TAB Prednisone (21) 5 mg tab Dose Pack (Prednisone (21) 5 mg tab Dose Pack) 5 Mg Dspk 5 MG PO DIRECTED Inflammation #1 Ref 0 DSPK Diazepam (Valium) 10 Mg Tab 10 MG PO Q8HR PRN ANXIETY AND/OR AGITATION #14 TAB Magnesium Oxide (Magnesium Oxide) 241.3 Mg Tab 400 MG PO Q12HR Magnesium #60 TAB Oxycodone (Oxycodone) 5 Mg Tab 5 MG PO Q4H PRN pain #20 TAB Potassium Chloride Microencaps (Potassium Chloride Microencaps) 20 Meq Tab 40 MEQ PO TID Potassium #90 TAB Potassium Phosphate Monobasic (K-Phos) 500 Mg Tab 1000 MG PO DAILY Phosphate #30 TAB Sucralfate Liq (Sucralfate Liq) 1 Gm/10 Ml Bernadette 1 GM PO ACHS Stomach #1 BOTTLE Continued Medications: Cholecalciferol (Vitamin D3) 10,000 Unit Cap 92497 UNITS PO Q3D Nutritional Supplement #1 Ref 0 BOTTLE Diphenhydramine (Benadryl Allergy) 25 Mg Tab 25 MG PO DAILY PRN ALLERGIES Ref 0 TAB Ibuprofen (Advil) 200 Mg Tab 200 MG PO QID PRN Ref 0 TAB Magnesium Citrate (Magnesium Citrate) 100 Mg Tab 100 MG PO HS CONSTIPATION Ref 0 TAB Discontinued Medications: Potassium (Potassium) 99 Mg Tab 99 MG PO HS Kane Waters DO Jan 18, 2017 13:55
[2017-01-18] MEDS ORDERED: PRED5PAK PO (13:56)
[2017-01-18] MEDS ORDERED: PANT40TA3 PO (14:00)
== END 2017-01-18 18:18 | disposition home or self-care (01) | DRG 641 ==
LOC: NEPE 08:28 → NEDA 10:33 → HIMN 13:40 → HOCA 01-16 15:36
PROVIDERS: ADMIT Hospitalist; ATTEND Hospitalist
PROC: 0T9B70Z Drainage of Bladder with Drainage Device, Via Natural or Artificial Opening (ICD-10-PCS; 2017-01-03)
PROC: 0DB58ZX Excision of Esophagus, Via Natural or Artificial Opening Endoscopic, Diagnostic (ICD-10-PCS; 2017-01-09)
PROC: 0DB68ZX Excision of Stomach, Via Natural or Artificial Opening Endoscopic, Diagnostic (ICD-10-PCS; principal; 2017-01-09 16:55)
PROC: 0DJD8ZZ Inspection of Lower Intestinal Tract, Via Natural or Artificial Opening Endoscopic (ICD-10-PCS; 2017-01-09 16:55)
PROC: 0DBN8ZX Excision of Sigmoid Colon, Via Natural or Artificial Opening Endoscopic, Diagnostic (ICD-10-PCS; 2017-01-13)
DX: E87.6 Hypokalemia (principal); N17.9 Acute kidney failure, unspecified; E86.0 Dehydration; E87.2 Acidosis; I48.0 Paroxysmal atrial fibrillation; K51.90 Ulcerative colitis, unspecified, without complications; K31.84 Gastroparesis; I10 Essential (primary) hypertension; E07.81 Sick-euthyroid syndrome; K21.0 Gastro-esophageal reflux disease with esophagitis; K29.50 Unspecified chronic gastritis without bleeding; F31.9 Bipolar disorder, unspecified; Z87.442 Personal history of urinary calculi; Z86.14 Personal history of Methicillin resistant Staphylococcus aureus infection; Z88.8 Allergy status to other drugs, medicaments and biological substances; Z88.1 Allergy status to other antibiotic agents; Z88.0 Allergy status to penicillin; Z91.013 Allergy to seafood; Z85.038 Personal history of other malignant neoplasm of large intestine; F12.90 Cannabis use, unspecified, uncomplicated; D64.9 Anemia, unspecified; F43.10 Post-traumatic stress disorder, unspecified; F30.8 Other manic episodes; G89.29 Other chronic pain; R74.8 Abnormal levels of other serum enzymes; E04.1 Nontoxic single thyroid nodule; E83.42 Hypomagnesemia; E83.39 Other disorders of phosphorus metabolism; R63.4 Abnormal weight loss; R13.10 Dysphagia, unspecified; K59.09 Other constipation; K64.8 Other hemorrhoids; K64.4 Residual hemorrhoidal skin tags
CPT/HCPCS: 36569; 70553; 71010; 74176; 76536; 76775; 76937; 80048; 80053; 81001; 82533; 82570; 82607; 82746; 82948; 83090; 83605; 83690; 83735; 83921; 84100; 84132; 84133; 84146; 84155; 84156; 84300; 84439; 84443; 84703; 85007; 85014; 85018; 85025; 85027; 86038; 86376; 86800; 86850; 86900; 86901; 87040; 87641; 88305; 88312; 93005; 94150; 94640; 94667; 96361; 96374; 96375; A9579; C9113; J1170; J1642; J1644; J1720; J2250; J2270; J2405; J3010; J3370; J3475; J3480; J7030; J7050; J7120

== ENCOUNTER 2017-03-08 17:54 | Inpatient (IN) | payer OTHER ==
[~2017-03-08] VITALS: Ht 175.3 cm; Wt 59.0 kg
[~2017-03-08 17:54] MED LIST changes: +BENA25TA3 PO; -CALC500 PO; +CHOL1CAP24 PO; -CLON.5 PO; +DIAZ10 PO; +IBUP-988 PO; -IBUP800T23 PO; +K-PHTAB PO; -KCL20 PO; -KLOR20TA6 PO; +MAGN100T2 PO; -MAGN400 PO; +MAGN400T3 PO; +OXYC-392 PO; +PANT40TA3 PO; +POTA20TA5 PO; +PRED5PAK PO; -PROT40TA PO
[2017-03-08 18:00] VITALS: BP 110/59; PULSE 83; RESP 15; TEMP 98.7; O2SAT 100
--- NOTE | 2017-03-08 18:05 | PD ---
Physical Exam Time Seen by Provider: 18:03 Narrative 41 y/o female presents for evaluation of abdominal pain for one day and she is concerned that she may be hypokalemic. vital signs reviewed. Seen at triage desk. Awaiting bed placement. Data Data Last Documented VS Vital Signs Date Time Temp Pulse Resp B/P Pulse Ox O2 Delivery O2 Flow Rate FiO2 03/08/17 18:00 98.7 83 15 110/59 100 MDM Medical Record Reviewed: Yes Supervised Visit with ARY: Shahab Pierre March 08, 2017 18:05
--- NOTE | 2017-03-08 19:29 | PD ---
HPI Chief Complaint: Abdominal Pain Time Seen by Provider: 19:25 Travel History International Travel<30 days: No Contact w/Intl Traveler<30days: No Traveled to known affect area: No History of Present Illness HPI Patient comes in for evaluation of left upper and lower quadrant abdominal pain ongoing for 3 days. Patient states secondary to her gastroparesis. Patient states she did have a bowel movement today that was hard. Patient states she takes all her medications prescribed by her GI doctor with the exception of her pain medication she does not like taking at home. Patient states she also has issues with potassium as well and takes oral supplements but has not seen a mri technician outside the hospital. Patient states that she was having her menstrual cycle for approximately 2 months but has since stopped. Patient reports abdominal pain as stabbing like pain that radiates to her back. Patient states that she did have vomiting with this last episode yesterday. Denies any known fevers, chest pain, shortness of breath, or . 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) Cardiovascular Problems: Yes High Cholesterol: No Chemotherapy: No Chest Pain: No Congestive Heart Failure: No COPD: No Cerebrovascular Accident: No Diabetes: No Diminished Hearing: No Endocrine: Yes (HX ENDOMETRIOUSIS) Gastrointestinal Disorders: Yes GERD: Yes Genitourinary: Yes Headaches: Yes Hiatal Hernia: No Heparin Induced Thrombocytopen: No Hypertension: No Immune Disorder: No Implanted Vascular Access Dvce: No Kidney Stones: Yes Musculoskeletal: No Neurologic: Yes Psychiatric: No Reproductive: Yes Respiratory: No Immunizations Current: Yes Migraines: Yes Pneumonia: Yes Radiation Therapy: No Renal Failure: No Seizures: No Sickle Cell Disease: No Sleep Apnea: No Thyroid Disease: No Ulcer: Yes (Pt states she has severe ulcers from throat to rectum) Tetanus Vaccination: < 5 Years Influenza Vaccination: Yes PNEUMOCCOCAL Vaccine (Year): 3 ?: Not LMP: LAST MONTH : 2 Para: 1 Miscarriage: 1 : 0 Ectopic : Yes (AT 17 YEARS OF AGE) Ovarian Cysts: Yes Past Surgical History Abdominal Surgery: Yes (multiple Laps) AICD: No Appendectomy: Yes Arteriovenous Shunt: No Cardiac Surgery: No Ear Surgery: No Endocrine Surgery: Yes Eye Surgery: No Genitourinary Surgery: Yes (Interstitial cystitis) Gynecologic Surgery: Yes Hysterectomy: Yes (PARTIAL OOPHERECTOMY AND PARTIAL SALPINECTOMY) Insulin Pump: No Joint Replacement: No Neurologic Surgery: No Oral Surgery: Yes (Removal of abscess) Pacemaker: No Thoracic Surgery: No Other Surgery: Yes (endometriosis, ovarian cyst,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,appendectomy, cervix partial re) Social History Alcohol Use: No Tobacco Use: No Substance Use: Yes (Marijuana, last used couple days ago) Allergies-Medications (Allergen,Severity, Reaction): Coded Allergies: Keflex (Verified Allergy, Severe, RASH,SWELLING, 03/08/17) Penicillin (Verified Allergy, Severe, RASH,SWELLING, 03/08/17) Reglan (Verified Allergy, Severe, DYSTONIC REACTION, 03/08/17) Seafood (Verified Allergy, Severe, SWELLING IN THROAT, SOB, 03/08/17) Toradol (Verified Allergy, Severe, RASH, 03/08/17) Compazine (Verified Allergy, Mild, DYSTONIC REACTION, 03/08/17) Phenergan (Verified Allergy, Mild, DYSTONIC REACTION, 03/08/17) Neurontin (Verified Adverse Reaction, Severe, SEIZURES, 03/08/17) *MDRO Multi-Drug Resistant Organism (Verified Adverse Reaction, Unknown, ) MRSA axilla/ breast 2008 MRSA PCR (nares) negative - 04/19/16 & 04/21/16 Cleared per Infection Control Reported Meds & Prescriptions Reported Meds & Active Scripts Active Pantoprazole (Pantoprazole Sodium) 40 Mg Tab 40 Mg PO DAILY Prednisone (21) 5 mg tab Dose Pack (Prednisone) 5 Mg Dspk 5 Mg PO DIRECTED Sucralfate Liq (Sucralfate) 1 Gm/10 Ml Bernadette 1 Gm PO ACHS K-Phos (Potassium Phosphate Monobasic) 500 Mg Tab 1,000 Mg PO DAILY Potassium Chloride Microencaps 20 Meq Tab 40 Meq PO TID Magnesium Oxide 241.3 Mg Tab 400 Mg PO Q12HR Reported Magnesium Citrate 100 Mg Tab 100 Mg PO HS Vitamin D3 (Cholecalciferol) 10,000 Unit Cap 20,000 Units PO Q3D Advil (Ibuprofen) 200 Mg Tab 200 Mg PO QID PRN Review of Systems Except as stated in HPI: all other systems reviewed are Neg Physical Exam Narrative GENERAL: Well-developed, well nourished, in no acute distress, and non-ill appearing. SKIN: Focused skin assessment warm and dry. HEAD: Atraumatic. Normocephalic. EYES: Pupils equal and round. EOMI. No scleral icterus. No injection or drainage. ENT: No nasal bleeding or discharge. Mucous membranes pink and moist. NECK: Trachea midline. Supple. No nuclear rigidity. CARDIOVASCULAR: Regular rate and rhythm. No murmur appreciated. RESPIRATORY: No accessory muscle use. No respiratory distress. Clear to auscultation. Breath sounds equal bilaterally. GASTROINTESTINAL: Abdomen soft, nondistended. Hepatic and splenic margins not palpable. Normal bowel sounds 4. No pulsatile mass. Patient reports tenderness to palpation throughout her abdomen. His left upper and left lower quadrants. MUSCULOSKELETAL: No obvious deformities. No clubbing. No cyanosis. No edema. Full range of motion. NEUROLOGICAL: Awake and alert. No obvious cranial nerve deficits. Motor grossly within normal limits. Normal speech. PSYCHIATRIC: Appropriate mood and affect; insight and judgment normal. Data Data Last Documented VS Vital Signs Date Time Temp Pulse Resp B/P Pulse Ox O2 Delivery O2 Flow Rate FiO2 03/08/17 20:56 100 Room Air 03/08/17 18:00 98.7 83 15 110/59 Orders Complete Blood Count With Diff (03/08/17 19:22) Comprehensive Metabolic Panel (03/08/17 19:22) Lipase (03/08/17 19:22) Prothrombin Time / Inr (Pt) (03/08/17 19:22) Act Partial Throm Time (Ptt) (03/08/17 19:22) Urinalysis - C+S If Indicated (03/08/17 19:22) Iv Access Insert/Monitor (03/08/17 19:22) Ecg Monitoring (03/08/17 19:22) Oximetry (03/08/17 19:22) Sodium Chloride 0.9% Flush (Ns Flush) (03/08/17 19:30) Electrocardiogram (03/08/17 19:22) Chest, Single Ap (03/08/17 19:22) Magnesium (Mg) (03/08/17 19:22) Resp Oxygen Iftikhar C Titrat 1-4 L (03/08/17 ) Sodium Chloride 0.9% Flush (Ns Flush) (03/08/17 21:00) Ct Abd/Pel W/O Iv Contrast (03/08/17 19:22) Ns + Kcl 40 Meq Inj (Ns + Kcl 40 Meq Inj (03/08/17 21:45) Ondansetron Inj (Zofran Inj) (03/08/17 22:00) Morphine Inj (Morphine Inj) (03/08/17 22:00) Admit To Inpatient (03/08/17 ) Vital Signs (Adult) Q4H (03/08/17 22:00) Activity Oob With Assistance (03/08/17 22:00) Tax Economist / Telemetry .CONTINUOUS (03/08/17 22:00) Diet Heart Healthy (03/09/17 Breakfast) Sodium Chloride 0.9% Flush (Ns Flush) (03/08/17 22:00) Sodium Chloride 0.9% Flush (Ns Flush) (03/09/17 09:00) Ondansetron Inj (Zofran Inj) (03/08/17 22:00) Basic Metabolic Panel (Bmp) (03/09/17 06:00) Complete Blood Count With Diff (03/09/17 06:00) Naloxone Inj (Narcan Inj) (03/08/17 22:00) Inpatient Certification (03/08/17 ) Potassium Chloride (Kcl) (03/08/17 22:15) Potassium Chlor 20 Meq Premix (Kcl 20 Me (03/08/17 22:15) Potassium, Serum (K) (03/08/17 23:00) Potassium, Serum (K) (03/09/17 02:00) Potassium, Serum (K) (03/09/17 05:00) Potassium, Serum (K) (03/09/17 08:00) Potassium, Serum (K) (03/09/17 11:00) Potassium, Serum (K) (03/09/17 14:00) Magnesium (Mg) (03/08/17 23:00) Magnesium (Mg) (03/09/17 02:00) Magnesium (Mg) (03/09/17 05:00) Magnesium (Mg) (03/09/17 08:00) Magnesium (Mg) (03/09/17 11:00) Magnesium (Mg) (03/09/17 14:00) Admit Order (Ed Use Only) (03/08/17 22:06) Labs Laboratory Tests Test 03/08/17 20:10 White Blood Count 14.4 TH/MM3 Red Blood Count 4.29 MIL/MM3 Hemoglobin 12.4 GM/DL Hematocrit 36.5 % Mean Corpuscular Volume 85.2 FL Mean Corpuscular Hemoglobin 29.0 PG Mean Corpuscular Hemoglobin 34.1 % Concent Red Cell Distribution Width 16.5 % Platelet Count 306 TH/MM3 Mean Platelet Volume 7.9 FL Neutrophils (%) (Auto) 90.8 % Lymphocytes (%) (Auto) 3.9 % Monocytes (%) (Auto) 4.5 % Eosinophils (%) (Auto) 0.5 % Basophils (%) (Auto) 0.3 % Neutrophils # (Auto) 13.0 TH/MM3 Lymphocytes # (Auto) 0.6 TH/MM3 Monocytes # (Auto) 0.6 TH/MM3 Eosinophils # (Auto) 0.1 TH/MM3 Basophils # (Auto) 0.0 TH/MM3 CBC Comment DIFF FINAL Differential Comment Urine Color YELLOW Urine Turbidity CLEAR Urine pH 6.0 Urine Specific [place] 1.016 Urine Protein 30 mg/dL Urine Glucose (UA) NEG mg/dL Urine Ketones NEG mg/dL Urine Occult Blood NEG Urine Nitrite NEG Urine Bilirubin NEG Urine Urobilinogen LESS THAN 2.0 MG/DL Urine Leukocyte Esterase SMALL Urine RBC LESS THAN 1 /hpf Urine WBC 3 /hpf Urine Squamous Epithelial 2 /hpf Cells Urine Bacteria RARE /hpf Urine Hyaline Casts 19 /lpf Microscopic Urinalysis Comment CULT NOT INDICATED Sodium Level 138 MEQ/L Potassium Level 2.2 MEQ/L Chloride Level 97 MEQ/L Carbon Dioxide Level 26.6 MEQ/L Anion Gap 14 MEQ/L Blood Urea Nitrogen 51 MG/DL Creatinine 2.22 MG/DL Estimat Glomerular Filtration 24 ML/MIN Rate Random Glucose 93 MG/DL Calcium Level 9.2 MG/DL Magnesium Level 2.6 MG/DL Total Bilirubin 0.3 MG/DL Aspartate Amino Transf 28 U/L (AST/SGOT) Alanine Aminotransferase 19 U/L (ALT/SGPT) Alkaline Phosphatase 45 U/L Total Protein 8.0 GM/DL Albumin 4.2 GM/DL Lipase 294 U/L MDM Medical Decision Making Medical Screen Exam Complete: Yes Emergency Medical Condition: Yes Interpretation(s) EKG reviewed by Dr. Hernandez shows sinus rhythm with ventricular rate of 69. No STEMI. Long QT. Differential Diagnosis Ileus, SBO, constipation, electrolyte abnormality, dehydration, kidney injury, anemia, other Narrative Course Patient was seen and examined. Initial laboratory studies were obtained and reviewed. Patient was hydrated with normal saline with 40 of potassium, given 1 dose of morphine for pain, Zofran for nausea. Discussed patient with Dr. Hernandez, rub is agreeable with plan of care and disposition and recommends having patient admitted to medicine. Discussed all findings and plan of care with patient, who is agreeable for admission. All questions were answered. Patient remained stable throughout ED course. Physician Communication Physician Communication [id number] Weiner, who is agreeable to admit the patient. Diagnosis Primary Impression: Acute renal failure Qualified Code: N17.9 - Acute renal failure, unspecified acute renal failure type Additional Impressions: Hypokalemia Abdominal pain Qualified Code: R10.9 - Abdominal pain, unspecified location Admitting Information Admitting Physician Requests: Admit Condition: Stable Santos Fernández March 08, 2017 19:28
[2017-03-08] MEDS ORDERED: SODIUM CHLORIDE 0.9% FLUSH 10 ML FLUSH IV FLUSH PRN (19:30)
--- NOTE | 2017-03-08 19:54 | RADRPT ---
EXAM DATE/TIME: 03/08/2017 19:34 [facility] COMPARISON: CHEST SINGLE AP, January 13, 2017, 13:05. INDICATIONS : Chest and abdominal pain. MEDICAL HISTORY : None. SURGICAL HISTORY : None. ENCOUNTER: Initial ACUITY: 1 day PAIN SCORE: 8/10 LOCATION: Bilateral lower chest FINDINGS: A single view of the chest demonstrates the lungs to be symmetrically aerated without evidence of mas s, infiltrate or effusion. The cardiomediastinal contours are unremarkable. Osseous structures are intact. CONCLUSION: No acute disease. Kane Tejeda MD on March 08, 2017 at 19:52 Board Certified Radiologist. This report was verified electronically.
[2017-03-08 20:31] LABS: BASOPHIL % 0.3 % (0.0-2.0); EOSINOPHIL # 0.1 TH/MM3 (0-0.4); EOSINOPHIL % 0.5 % (0.0-4.0); HEMATOCRIT 36.5 % (35.0-46.0); HEMO FLAGS DIFF FINAL; LYMPH % 3.9 % (9.0-44.0); LYMPHOCYTE # 0.6 TH/MM3 (1.0-4.8); MEAN CELL VOLUME 85.2 FL (80.0-100.0); MEAN CORPUSCULAR HGB CONC 34.1 % (32.0-36.0); MONO % 4.5 % (0.0-8.0); NEUT % 90.8 % (16.0-70.0); PLATELET COUNT 306 TH/MM3 (150-450); RED BLOOD COUNT 4.29 MIL/MM3 (4.00-5.30); RED CELL DISTRIBUTION WIDTH 16.5 % (11.6-17.2); WHITE BLOOD COUNT 14.4 TH/MM3 (4.0-11.0)
[2017-03-08 20:32] LABS: BACTERIA, URINE RARE /hpf; BLOOD, URINE NEG (NEG); COMMENT (UR) CULT NOT INDICATED; CULTURE IF INDICATED CULT NOT INDICATED; GLUCOSE,URINE NEG (NEG); HYALINE CAST, URINE 19 /lpf (RARE); KETONE, URINE NEG (NEG); NITRITE,URINE NEG (NEG); SQUAMOUS EPITHELIAL CELL URINE 2 /hpf (0-5); URINE COLOR YELLOW (YELLW/STRAW)
[2017-03-08 20:56] VITALS: O2SAT 100
[2017-03-08] MEDS ORDERED: SODIUM CHLORIDE 0.9% FLUSH 10 ML FLUSH IVF PRN (21:00)
[2017-03-08 21:21] LABS: ALKALINE PHOSPHATASE 45 U/L (45-117); ALT (GPT) 19 U/L (10-53); ANION GAP 14 MEQ/L (5-15); AST (GOT) 28 U/L (15-37); BICARBONATE 26.6 MEQ/L (21.0-32.0); BLOOD UREA NITROGEN 51 MG/DL (7-18); CHLORIDE 97 MEQ/L (98-107); GLOMERULAR FILTRATION RATE 24 ML/MIN (>89); MAGNESIUM 2.6 MG/DL (1.5-2.5); SODIUM (NA) 138 MEQ/L (136-145); TOTAL BILIRUBIN ADULT 0.3 MG/DL (0.2-1.0)
[2017-03-08 21:24] LABS: POTASSIUM 2.2 MEQ/L (3.5-5.1)
--- NOTE | 2017-03-08 21:41 | RADRPT ---
EXAM DATE/TIME: 03/08/2017 21:28 [facility] COMPARISON: CT ABDOMEN & PELVIS W/O CONTRAST, January 03, 2017, 9:49. INDICATIONS : Left upper and lower quadrant pain past 3 days. ORAL CONTRAST: No oral contrast ingested. RADIATION DOSE: 4.52 CTDIvol (mGy) MEDICAL HISTORY : Cardiovascular disease. Gastroesophageal reflux disease. Inflammatory bowel disease.Renal stones SURGICAL HISTORY : Appendectomy. Partial hysterectomy ENCOUNTER: Initial ACUITY: 3 days PAIN SCALE: 7/10 LOCATION: Left upper quadrant lower quadrant TECHNIQUE: Volumetric scanning of the abdomen and pelvis was performed. Using automated exposure control and ad justment of the mA and/or kV according to patient size, radiation dose was kept as low as reasonably achievable to obtain optimal diagnostic quality images. FINDINGS: LOWER LUNGS: The visualized lower lungs are clear. LIVER: Homogeneous density without lesion. There is no dilation of the biliary tree. No calcified gallston es. SPLEEN: Normal size without lesion. PANCREAS: Within normal limits. KIDNEYS: Normal in size and shape. There is no mass, stone, or hydronephrosis. ADRENAL GLANDS: Within normal limits. VASCULAR: There is no aortic aneurysm. BOWEL/MESENTERY: There is an abnormal bowel gas pattern with multiple loops of borderline dilated air-containing small bowel with multiple air-fluid levels. Gas and stool is noted throughout the colon. There is no evide nce of free air. There is residual contrast in portions of the bowel. There is a small amount of flui d again noted in the pelvis. ABDOMINAL WALL: Within normal limits. RETROPERITONEUM: There is no lymphadenopathy. BLADDER: No wall thickening or mass. REPRODUCTIVE: Within normal limits. INGUINAL: There is no lymphadenopathy or hernia. MUSCULOSKELETAL: Within normal limits for patient age. CONCLUSION: 1. Abnormal bowel gas pattern which may represent an ileus or gastroenteritis. Obstruction is less li danni. 2. Small amount of fluid is again noted in the pelvis. Kane Tejeda MD on March 08, 2017 at 21:34 Board Certified Radiologist. This report was verified electronically.
[2017-03-08] MEDS: NS + KCL 40 MEQ INJ 1,000 ML IV SCH (21:45)
[2017-03-08] MEDS ORDERED: MORPHINE SULFATE 4 MG/ML INJ IV PUSH ONE (22:00)
[2017-03-08] MEDS ORDERED: NALOXONE HCL 0.4 MG/ML AMP IV PRN (22:00)
[2017-03-08] MEDS ORDERED: ONDANSETRON HCL 4 MG/2 ML VIAL IV PUSH ONE (22:00)
[2017-03-08 22:15] VITALS: BP 114/63; PULSE 69; RESP 16; O2SAT 97
[2017-03-08] MEDS ORDERED: POTASSIUM CHLORIDE 20 MEQ CONTROLLED RELEASE TAB PO ONE (22:15)
[2017-03-08] MEDS: POTASSIUM CHLOR 20 MEQ PREMIX 100 ML IV SCH (22:27)
--- NOTE | 2017-03-08 23:20 | HHI.HP ---
HPI Service [facility] Primary Care Physician Neeraj Gilbert Admission Diagnosis acute renal insufficiency, hypokalemia Diagnoses: (1) Hypokalemia Chief Complaint: abdominal pain and vomiting Travel History International Travel<30 Days: No Contact w/Intl Traveler <30 Da: No Traveled to Known Affected Are: No History of Present Illness Ms. Hernandez is a 41-year-old female who was discharged from January 18, 2017 from March nearly 3 week hospitalization for renal failure and hypokalemia who presented to the emergency room on 03/08/2017 complaining of abdominal pain, dizziness, and palpitations which are symptoms she typically experiences with hypokalemia. The patient is seen in the emergency room. She reports the following: Over the past two years, she has lost 150 pounds, lost hair, and lost teeth Has a history of: low potassium gastroparesis esophagitis GI ulcers Reports: palpitations, dizziness, sharp pain "everywhere" over the past few days, getting progressively worse and not improving with foods high in potassium. She reports white spots on face just started 03/08/17. Abdominal pain - sharp in quality - started yesterday. Today felt a knot in left lower quadrant and then it went away and then came back; vomiting 3 - 4 times; no black or red vomit. Again, these are symptoms she typically experiences with her potassium as well. States she's had some red blood with stool in toilet bowl and when she wipes. No history of polyps - colonoscopy in January. Hemorrhoids in past have resolved to the best of her knowledge. Dr. Andrade in [place] - neurologist . Review of Systems Except as stated in HPI: all other systems reviewed are Neg Past Family Social History Past Medical History SVT Appendix cancer 3 - 4 years ago [facility] Endometriosis Seizures . Past Surgical History Laparoscopy x 4 Cystoscopy - interstitial cystitis - resolved EGD/Colonoscopy . Reported Medications Reported Meds & Active Scripts Active Pantoprazole (Pantoprazole Sodium) 40 Mg Tab 40 Mg PO DAILY Prednisone (21) 5 mg tab Dose Pack (Prednisone) 5 Mg Dspk 5 Mg PO DIRECTED Sucralfate Liq (Sucralfate) 1 Gm/10 Ml Bernadette 1 Gm PO ACHS K-Phos (Potassium Phosphate Monobasic) 500 Mg Tab 1,000 Mg PO DAILY Potassium Chloride Microencaps 20 Meq Tab 40 Meq PO TID Magnesium Oxide 241.3 Mg Tab 400 Mg PO Q12HR Reported Magnesium Citrate 100 Mg Tab 100 Mg PO HS Vitamin D3 (Cholecalciferol) 10,000 Unit Cap 20,000 Units PO Q3D Advil (Ibuprofen) 200 Mg Tab 200 Mg PO QID PRN . Allergies: Coded Allergies: Keflex (Verified Allergy, Severe, RASH,SWELLING, 03/08/17) Penicillin (Verified Allergy, Severe, RASH,SWELLING, 03/08/17) Reglan (Verified Allergy, Severe, DYSTONIC REACTION, 03/08/17) Seafood (Verified Allergy, Severe, SWELLING IN THROAT, SOB, 03/08/17) Toradol (Verified Allergy, Severe, RASH, 03/08/17) Compazine (Verified Allergy, Mild, DYSTONIC REACTION, 03/08/17) Phenergan (Verified Allergy, Mild, DYSTONIC REACTION, 03/08/17) Neurontin (Verified Adverse Reaction, Severe, SEIZURES, 03/08/17) *MDRO Multi-Drug Resistant Organism (Verified Adverse Reaction, Unknown, ) MRSA axilla/ breast 2008 MRSA PCR (nares) negative - 04/19/16 & 04/21/16 Cleared per Infection Control Active Ordered Medications Current Medications Sodium Chloride (NS Flush) 2 ml UNSCH PRN IV FLUSH FLUSH AFTER USING IV ACCESS ; Start 03/08/17 at 19:30; Stop 03/08/17 at 22:15; Status DC Sodium Chloride 2 ml 2 ml UNSCH PRN IVF FLUSH AFTER USING IV ACCESS; Start 03/08 at 21:00; Stop 03/08/17 at 22:15; Status DC Potassium Chloride/Sodium Chloride (NS + KCl 40 Meq Inj) 1,000 ml @ 100 mls/hr Q10H IV ; Start 03/08/17 at 21:45 Ondansetron HCl (Zofran Inj) 4 mg ONCE ONCE IV PUSH Last administered on t 22:13; Start 03/08/17 at 22:00; Stop 03/08/17 at 22:01; Status DC Morphine Sulfate (Morphine Inj) 2 mg ONCE ONCE IV PUSH Last administered on 22:14; Start 03/08/17 at 22:00; Stop 03/08/17 at 22:01; Status DC Sodium Chloride (NS Flush) 2 ml UNSCH PRN IV FLUSH FLUSH AFTER USING IV ACCESS ; Start 03/08/17 at 22:00 Sodium Chloride (NS Flush) 2 ml BID IV FLUSH ; Start 03/09/17 at 09:00 Ondansetron HCl (Zofran Inj) 4 mg Q6H PRN IVP NAUSEA OR VOMITING; Start at 22:00 Naloxone HCl (Narcan Inj) 0.4 mg UNSCH PRN IV SEE LABEL COMMENTS; Start at 22:00 Potassium Chloride 40 meq 40 meq ONCE ONCE PO Last administered on 03/08/17 22 :28; Start 03/08/17 at 22:15; Stop 03/08/17 at 22:16; Status DC Potassium Chloride (KCl 20 Meq Premix Inj) 100 ml @ 50 mls/hr Q2H IV Last administered on 03/08/17 22:27; Start 03/08/17 at 22:15; Stop 03/09/17 at 02:14 . Family History Biological mother with systemic lupus - multiple females on biological mothers side have Lung CA, Thyroid prroblems, breast CA doesn't know father's medical history - adopted . Social History Tobacco: denies Alcohol: denies use Illicit Drugs: denies . Physical Exam Vital Signs Vital Signs Date Time Temp Pulse Resp B/P Pulse Ox O2 Delivery O2 Flow Rate FiO2 03/08/17 22:28 16 03/08/17 22:15 69 16 114/63 97 Room Air 03/08/17 20:56 100 Room Air 03/08/17 18:00 98.7 83 15 110/59 100 Physical Exam GENERAL: This is a chronically ill-appearing female patient, in no apparent distress. SKIN: No rashes, ecchymoses or lesions. Cool and dry. HEAD: Atraumatic. Normocephalic. EYES: No scleral icterus. No injection or drainage. ENT: Nose without bleeding, purulent drainage. Absent dentition in upper front. NECK: Trachea midline. No JVD or lymphadenopathy. CARDIOVASCULAR: Regular rate and rhythm without murmurs, gallops, or rubs. RESPIRATORY: Clear to auscultation. Breath sounds equal bilaterally. No wheezes , rales, or rhonchi. GASTROINTESTINAL: Abdomen soft, nondistended. No guarding. Abdomen diffusely tender. MUSCULOSKELETAL: Extremities without clubbing, cyanosis, or edema. No calf tenderness. NEUROLOGICAL: Awake and alert. Motor and sensory grossly within normal limits. Normal speech. . Laboratory Laboratory Tests Test 03/08/17 20:10 White Blood Count 14.4 Red Blood Count 4.29 Hemoglobin 12.4 Hematocrit 36.5 Mean Corpuscular Volume 85.2 Mean Corpuscular Hemoglobin 29.0 Mean Corpuscular Hemoglobin 34.1 Concent Red Cell Distribution Width 16.5 Platelet Count 306 Mean Platelet Volume 7.9 Neutrophils (%) (Auto) 90.8 Lymphocytes (%) (Auto) 3.9 Monocytes (%) (Auto) 4.5 Eosinophils (%) (Auto) 0.5 Basophils (%) (Auto) 0.3 Neutrophils # (Auto) 13.0 Lymphocytes # (Auto) 0.6 Monocytes # (Auto) 0.6 Eosinophils # (Auto) 0.1 Basophils # (Auto) 0.0 CBC Comment DIFF FINAL Differential Comment Urine Color YELLOW Urine Turbidity CLEAR Urine pH 6.0 Urine Specific [place] 1.016 Urine Protein 30 Urine Glucose (UA) NEG Urine Ketones NEG Urine Occult Blood NEG Urine Nitrite NEG Urine Bilirubin NEG Urine Urobilinogen LESS THAN 2.0 Urine Leukocyte Esterase SMALL Urine RBC LESS THAN 1 Urine WBC 3 Urine Squamous Epithelial 2 Cells Urine Bacteria RARE Urine Hyaline Casts 19 Microscopic Urinalysis Comment CULT NOT INDICATED Sodium Level 138 Potassium Level 2.2 Chloride Level 97 Carbon Dioxide Level 26.6 Anion Gap 14 Blood Urea Nitrogen 51 Creatinine 2.22 Estimat Glomerular Filtration 24 Rate Random Glucose 93 Calcium Level 9.2 Magnesium Level 2.6 Total Bilirubin 0.3 Aspartate Amino Transf 28 (AST/SGOT) Alanine Aminotransferase 19 (ALT/SGPT) Alkaline Phosphatase 45 Total Protein 8.0 Albumin 4.2 Lipase 294 Result Diagram: 03/08/17200903/08/172009 Imaging Last Impressions Chest X-Ray 03/08/171921 Signed Impressions: Service Date/Time: Wednesday, March 08, 2017 19:34 - CONCLUSION: No acute disease. Kane Tejeda MD Abdomen/Pelvis CT 03/08/171921 Signed Impressions: Service Date/Time: Wednesday, March 08, 2017 21:28 - CONCLUSION: 1. Abnormal bowel gas pattern which may represent an ileus or gastroenteritis. Obstruction is less likely. 2. Small amount of fluid is again noted in the pelvis. Kane Tejeda MD . Assessment and Plan Problem List: (1) Hypokalemia ICD Code: E87.6 Status: Resolved Assessment and Plan Ms. Hernandez is a 41-year-old female who was discharged from January 18, 2017 from March nearly 3 week hospitalization for renal failure and hypokalemia who presented to the emergency room on 03/08/2017 complaining of abdominal pain, dizziness, and palpitations which are symptoms she typically experiences with hypokalemia. Life-threatening hypokalemia not corrected with gi absorption - 12-lead EKG personally reviewed showing sinus rhythm with heart rate of 69 and intraventricular conduction delay with no significant ischemic changes - Check potassium and magnesium levels every 3 hours and replace as indicated - consider port placement for home IV potassium infusion - consult case management for assistance with discharge planning Weight loss - consider feeding tube support - consult GI to see if patient is a candidate for a PEG tube History of hypothyroidism - not discharged on Synthroid - check TSH, free T3, and free T4 - restart Synthroid if indicated DVT prophylaxis - Heparin 5000 units subq q8h Written by Harmony Mckeon, acting as scribe for Dr. Weiner on 03/08/17 at 23:29. .This note was transcribed by scribe [Harmony Mckeon]. I, Dr. Harjit Weiner personally performed the history, physical exam, and medical decision making; and confirmed the accuracy of the information in the transcribed note. Authenticated by Dr. Harjit Weiner on 03/08/17 at 23:29. Discussed Condition With ER physician and patient . Physician Certification 2 Midnight Certification Type: Admission for Inpatient Services Order for Inpatient Services The services are ordered in accordance with Medicare regulations or non- Medicare payer requirements, as applicable. In the case of services not specified as inpatient-only, they are appropriately provided as inpatient services in accordance with the 2-midnight benchmark. Estimated LOS (days): 3 days is the estimated time the patient will need to remain in the hospital, assuming treatment plan goals are met and no additional complications. Post-Hospital Plan: Home Harmony Mckeon March 08, 2017 23:20 Harjit Weiner MD March 09, 2017 08:27
[2017-03-09] VITALS (13 sets, daily range): BP systolic 101–123; BP diastolic 51–83; PULSE 69–97; RESP 15–20; TEMP 98.1–99.1; O2SAT 96–100
[2017-03-09] MEDS: POTASSIUM CHLOR 20 MEQ PREMIX 100 ML IV SCH ×5 (00:15→10:58)
[2017-03-09 01:44] LABS: PROTHROMBIN TIME - PATIENT 10.7 SEC (9.8-11.6)
[2017-03-09 01:52] LABS: APTT (PATIENT) 25.4 SEC (24.3-30.1)
[2017-03-09 01:59] LABS: MAGNESIUM 2.4 MG/DL (1.5-2.5)
[2017-03-09] MEDS ORDERED: PANTOPRAZOLE SODIUM 40 MG VIAL IV PUSH ONE (02:00)
[2017-03-09 02:02] LABS: POTASSIUM 2.5 MEQ/L (3.5-5.1)
[2017-03-09 02:07] LABS: FREE T3 1.35 PG/ML (2.18-3.98); FREE T4 0.74 NG/DL (0.76-1.46)
[2017-03-09] MEDS ORDERED: PANTOPRAZOLE 80 MG/35 ML NS - BOLUS IV ONE ×2 (02:15)
[2017-03-09] MEDS ORDERED: POTASSIUM CHLORIDE 20 MEQ CONTROLLED RELEASE TAB PO ONE ×2 (02:30→08:30)
[2017-03-09] MEDS: MORPHINE SULFATE 4 MG/ML INJ IV PUSH PRN ×3 (03:00→20:18)
[2017-03-09] MEDS: SUCRALFATE 1 GM/10 ML CUP PO SCH ×4 (06:11→20:20)
[2017-03-09] MEDS: HEPARIN SODIUM - SQ 10,000 UNITS/ML VIAL SQ SCH ×2 (06:11→13:49)
[2017-03-09 06:18] LABS: AUTOMATED NEUTROPHIL # 8.5 TH/MM3 (1.8-7.7); BASOPHIL # 0.1 TH/MM3 (0-0.2); BASOPHIL % 0.7 % (0.0-2.0); EOSINOPHIL # 0.2 TH/MM3 (0-0.4); EOSINOPHIL % 1.8 % (0.0-4.0); HEMATOCRIT 32.9 % (35.0-46.0); HEMO FLAGS DIFF FINAL; LYMPH % 13.3 % (9.0-44.0); LYMPHOCYTE # 1.5 TH/MM3 (1.0-4.8); MEAN CELL VOLUME 86.5 FL (80.0-100.0); MEAN CORPUSCULAR HGB CONC 33.5 % (32.0-36.0); MONO % 7.8 % (0.0-8.0); NEUT % 76.4 % (16.0-70.0); PLATELET COUNT 277 TH/MM3 (150-450); RED CELL DISTRIBUTION WIDTH 16.5 % (11.6-17.2); WHITE BLOOD COUNT 11.1 TH/MM3 (4.0-11.0)
[2017-03-09] MEDS: ONDANSETRON HCL 4 MG/2 ML VIAL IVP PRN ×4 (06:33→23:15)
[2017-03-09 06:55] LABS: BICARBONATE 19.8 MEQ/L (21.0-32.0); MAGNESIUM 2.5 MG/DL (1.5-2.5)
[2017-03-09 07:01] LABS: POTASSIUM 2.7 MEQ/L (3.5-5.1)
--- NOTE | 2017-03-09 07:54 | HHI.PR ---
Subjective Remarks This is a pleasant 41 y/o Female recently discharged from this facility January 18, had another recent admission in December this year, on that opportunity was admitted due to Renal Failure, came to ER with Abdominal pain dizziness and palpitations. She has Gastroparesis, Esophagitis, PUD, history of Appendix Cancer. 03/09: Seen in her bedroom, continue with electrolyte derangement continue replacing her electrolytes, continue Hydration for Acute Kidney Injury, states is not able to drink and eat well due to nausea and vomit no diarrhea. Objective Vital Signs Date Time Temp Pulse Resp B/P Pulse Ox O2 Delivery O2 Flow Rate FiO2 03/09/17 07:32 96 21 03/09/17 04:00 99.1 69 20 101/51 99 03/09/17 03:07 18 03/09/17 03:00 75 03/09/17 01:00 98.4 74 20 111/69 98 03/09/17 01:00 73 03/09/17 01:00 98 Room Air 03/08/17 22:28 16 03/08/17 22:15 69 16 114/63 97 Room Air 03/08/17 20:56 100 Room Air 03/08/17 18:00 98.7 83 15 110/59 100 I/O 03/08/17 03/08/17 03/08/17 03/09/17 03/09/17 03/09/17 07:00 15:00 23:00 07:00 15:00 23:00 Intake Total 1416 ml Output Total 450 ml Balance 966 ml Intake Oral 840 ml IV Total 576 ml Output Urine Total 450 ml Stool Total 0 ml Result Diagram: 03/09/17 0445 03/09/17 0445 Imaging Last Impressions Chest X-Ray 03/08/171921 Signed Impressions: Service Date/Time: Wednesday, March 08, 2017 19:34 - CONCLUSION: No acute disease. Kane Tejeda MD Abdomen/Pelvis CT 03/08/171921 Signed Impressions: Service Date/Time: Wednesday, March 08, 2017 21:28 - CONCLUSION: 1. Abnormal bowel gas pattern which may represent an ileus or gastroenteritis. Obstruction is less likely. 2. Small amount of fluid is again noted in the pelvis. Kane Tejeda MD Procedures No procedures performed. Other Results Laboratory Tests Test 03/08/17 03/09/17 03/09/17 20:10 01:23 04:45 Urine Color YELLOW Urine Turbidity CLEAR Urine pH 6.0 Urine Specific [place] 1.016 Urine Protein 30 mg/dL Urine Glucose (UA) NEG mg/dL Urine Ketones NEG mg/dL Urine Occult Blood NEG Urine Nitrite NEG Urine Bilirubin NEG Urine Urobilinogen LESS THAN 2.0 MG/DL Urine Leukocyte Esterase SMALL Urine RBC LESS THAN 1 /hpf Urine WBC 3 /hpf Urine Squamous Epithelial 2 /hpf Cells Urine Bacteria RARE /hpf Urine Hyaline Casts 19 /lpf Microscopic Urinalysis Comment CULT NOT INDICATED Total Bilirubin 0.3 MG/DL Aspartate Amino Transf 28 U/L (AST/SGOT) Alanine Aminotransferase 19 U/L (ALT/SGPT) Alkaline Phosphatase 45 U/L Total Protein 8.0 GM/DL Albumin 4.2 GM/DL Lipase 294 U/L Prothrombin Time 10.7 SEC Prothromb Time International 1.0 RATIO Ratio Activated Partial 25.4 SEC Thromboplast Time Free Thyroxine 0.74 NG/DL Free Triiodothyronine (T3) 1.35 PG/ML pg/dL Thyroid Stimulating Hormone 1.190 uIU/ML 3rd Gen White Blood Count 11.1 TH/MM3 Red Blood Count 3.80 MIL/MM3 Hemoglobin 11.0 GM/DL Hematocrit 32.9 % Mean Corpuscular Volume 86.5 FL Mean Corpuscular Hemoglobin 29.0 PG Mean Corpuscular Hemoglobin 33.5 % Concent Red Cell Distribution Width 16.5 % Platelet Count 277 TH/MM3 Mean Platelet Volume 8.2 FL Neutrophils (%) (Auto) 76.4 % Lymphocytes (%) (Auto) 13.3 % Monocytes (%) (Auto) 7.8 % Eosinophils (%) (Auto) 1.8 % Basophils (%) (Auto) 0.7 % Neutrophils # (Auto) 8.5 TH/MM3 Lymphocytes # (Auto) 1.5 TH/MM3 Monocytes # (Auto) 0.9 TH/MM3 Eosinophils # (Auto) 0.2 TH/MM3 Basophils # (Auto) 0.1 TH/MM3 CBC Comment DIFF FINAL Differential Comment Sodium Level 138 MEQ/L Potassium Level 2.7 MEQ/L Chloride Level 105 MEQ/L Carbon Dioxide Level 19.8 MEQ/L Anion Gap 13 MEQ/L Blood Urea Nitrogen 51 MG/DL Creatinine 1.94 MG/DL Estimat Glomerular Filtration 29 ML/MIN Rate Random Glucose 88 MG/DL Calcium Level 8.6 MG/DL Magnesium Level 2.5 MG/DL Objective Remarks GENERAL: This is a chronically ill-appearing female patient, in no apparent distress. SKIN: No rashes, ecchymoses or lesions. Cool and dry. HEAD: Atraumatic. Normocephalic. EYES: No scleral icterus. No injection or drainage. ENT: Nose without bleeding, purulent drainage. Absent dentition in upper front. NECK: Trachea midline. No JVD or lymphadenopathy. CARDIOVASCULAR: Regular rate and rhythm without murmurs, gallops, or rubs. RESPIRATORY: Clear to auscultation. Breath sounds equal bilaterally. No wheezes , rales, or rhonchi. GASTROINTESTINAL: Abdomen soft, nondistended. No guarding. Abdomen diffusely tender. MUSCULOSKELETAL: Extremities without clubbing, cyanosis, or edema. No calf tenderness. NEUROLOGICAL: Awake and alert. Motor and sensory grossly within normal limits. Normal speech. Medications and IVs Current Medications Medications (Trade) Dose Ordered Sig/Osito Route Start Time Stop Time Status Last Admin (NS + KCl 40 Meq Inj) 1,000 ml @ 100 mls/hr Q10H IV 03/08/17 21:45 03/08/17 21:45 (NS Flush) 2 ml UNSCH PRN IV FLUSH 03/08/17 22:00 (NS Flush) 2 ml BID IV FLUSH 03/09/17 09:00 (Zofran Inj) 4 mg Q6H PRN IVP 03/08/17 22:00 03/09/17 06:33 (Narcan Inj) 0.4 mg UNSCH PRN IV 03/08/17 22:00 (Vitamin D3) 20,000 units Q3D PO 03/09/17 09:00 (Protonix) 40 mg DAILY@06 PO 03/10/17 06:00 (Carafate Liq) 1 gm ACHS PO 03/09/17 07:00 03/09/17 06:11 (Morphine Inj) 2 mg Q6HR PRN IV PUSH 03/09/17 02:00 03/09/17 03:00 (Heparin Inj) 5,000 units Q8HR SQ 03/09/17 06:00 03/09/17 06:11 A/P Assessment and Plan 1. Severe Electrolyte derangement chronic issue, probable related to GI malabsorption, her ECG showed sinus rhythm, electrolytes are followed every 3 hours. added her home regimen by mouth and will help with IV replacement as needed 2. Weight loss due to probable Gastroparesis, GI specialist consulted on admission to evaluate for possible PEG tube placement the patient wants to get one. 3. Acute kidney injury on IV fluids and improving DVT prophylaxis - Heparin 5000 units subq q8h Discussed Condition With patient Discharge Planning Expected in one to two days. Romaine Bowden MD March 09, 2017 07:54
[2017-03-09] MEDS: SODIUM CHLORIDE 0.9% FLUSH 10 ML FLUSH IV FLUSH SCH ×2 (09:00→20:19)
[2017-03-09] MEDS: CHOLECALCIFEROL (VIT D3) 5000 UNIT CAP PO SCH (09:15)
[2017-03-09 09:16] LABS: MAGNESIUM 2.4 MG/DL (1.5-2.5)
[2017-03-09] MEDS: NS + KCL 40 MEQ INJ 1,000 ML IV SCH (09:16)
[2017-03-09 09:25] LABS: POTASSIUM 2.8 MEQ/L (3.5-5.1)
[2017-03-09] MEDS: METOCLOPRAMIDE HCL 10 MG/2 ML VIAL IV PUSH PRN ×2 (09:27→20:05)
--- NOTE | 2017-03-09 10:57 | PD.CONS ---
HPI History of Present Illness This is a 41 year old [lady] has hx renal failure, hypokalemia, gastroparesis, and came to the hospital b/c she says she had low potassium and abdominal pain. GI was consulted for PEG tube placement. She has lost > 150 lbs in the last year, along with some of her teeth and hair. She says she was diagnosed with gastroparesis last year via endoscopy, but is unaware of having ever had a GES. Currently she is having abdominal pain in the LLQ that is 9/10 and constant. She reports BM yesterday that was hard. She is having some nausea and vomiting that started this morning, no blood. She had colonoscopy and EGD at [place] 01/09 ---> severe esophagitis, gastritis, poor or no colon prep. She says she also had ulcerative colitis adn takes prednisone. She said she has hx fecal impaction and has been disimpacted before, but this provider is not able to understand the terminology she is using. Pt is poor historian. (Mari Pérez) PFSH Past Medical History ulcerative colitis Appendix cancer 3 - 4 years ago [facility] Endometriosis epilepsy hypokalemia renal failure hx fecal impaction . Past Surgical History Laparoscopy x 4 Cystoscopy - interstitial cystitis - resolved EGD/Colonoscopy . (Mari Pérez) Coded Allergies: Keflex (Verified Allergy, Severe, RASH,SWELLING, 03/08/17) Penicillin (Verified Allergy, Severe, RASH,SWELLING, 03/08/17) Reglan (Verified Allergy, Severe, DYSTONIC REACTION, 03/08/17) Seafood (Verified Allergy, Severe, SWELLING IN THROAT, SOB, 03/08/17) Toradol (Verified Allergy, Severe, RASH, 03/08/17) Compazine (Verified Allergy, Mild, DYSTONIC REACTION, 03/08/17) Phenergan (Verified Allergy, Mild, DYSTONIC REACTION, 03/08/17) Neurontin (Verified Adverse Reaction, Severe, SEIZURES, 03/08/17) *MDRO Multi-Drug Resistant Organism (Verified Adverse Reaction, Unknown, ) MRSA axilla/ breast 2009 MRSA PCR (nares) negative - 04/19/16 & 04/21/16 Cleared per Infection Control Medications Current Medications Medications (Trade) Dose Ordered Sig/Osito Route PRN Reason Start Time Stop Time Status Last Admin Dose Admin Potassium Chloride/Sodium Chloride (NS + KCl 40 Meq Inj) 1,000 ml @ 100 mls/hr Q10H IV 03/08/17 21:45 03/09/17 09:16 Sodium Chloride (NS Flush) 2 ml UNSCH PRN IV FLUSH FLUSH AFTER USING IV ACCESS 03/08/17 22:00 Sodium Chloride (NS Flush) 2 ml BID IV FLUSH 03/09/17 09:00 Ondansetron HCl (Zofran Inj) 4 mg Q6H PRN IVP NAUSEA OR VOMITING 03/08/17 22:00 03/09/17 06:33 Naloxone HCl (Narcan Inj) 0.4 mg UNSCH PRN IV SEE LABEL COMMENTS 03/08/17 22:00 Cholecalciferol (Vitamin D3) 20,000 units Q3D PO 03/09/17 09:00 03/09/17 09:15 Pantoprazole Sodium (Protonix) 40 mg DAILY@06 PO 03/10/17 06:00 Sucralfate (Carafate Liq) 1 gm ACHS PO 03/09/17 07:00 03/09/17 06:11 Morphine Sulfate (Morphine Inj) 2 mg Q6HR PRN IV PUSH PAIN >5 03/09/17 02:00 03/09/17 09:15 Heparin Sodium (Porcine) 5000 units 5,000 units Q8HR SQ 03/09/17 06:00 03/09/17 06:11 Potassium Chloride (KCl 20 Meq Premix Inj) 100 ml @ 50 mls/hr Q2H IV 03/09/17 08:30 03/09/17 12:29 03/09/17 09:14 Metoclopramide HCl (Reglan Inj) 10 mg Q8H PRN IV PUSH nausea 03/09/17 08:30 03/09/17 09:27 Family History Biological mother with systemic lupus - multiple females on biological mothers side have Lung CA, Thyroid prroblems, breast CA doesn't know father's medical history - adopted . Social History Tobacco: denies Alcohol: denies use Illicit Drugs: denies . (Mari Pérez) Review of Systems Constitutional: DENIES: Fever Eyes: DENIES: Blurred vision Ears, nose, mouth, throat: DENIES: Hearing loss Respiratory: DENIES: Cough Cardiovascular: DENIES: Chest pain Gastrointestinal: COMPLAINS OF: Abdominal pain, Constipation, Nausea, Vomiting , DENIES: Black stools, Bloody stools, Hematemesis Musculoskeletal: COMPLAINS OF: Joint pain Integumentary: COMPLAINS OF: Abnormal pigmentation (white spots on face since yesterday) Hematologic/lymphatic: DENIES: Bruising Neurologic: DENIES: Abnormal gait (Mari Pérez) GI Exam Vitals I&O Vital Signs Date Time Temp Pulse Resp B/P Pulse Ox O2 Delivery O2 Flow Rate FiO2 03/09/17 09:59 98 Room Air 03/09/17 08:43 98.1 77 17 123/72 100 03/09/17 07:32 96 21 03/09/17 04:00 99.1 69 20 101/51 99 03/09/17 03:07 18 03/09/17 03:00 75 03/09/17 01:00 98.4 74 20 111/69 98 03/09/17 01:00 73 03/09/17 01:00 98 Room Air 03/08/17 22:28 16 03/08/17 22:15 69 16 114/63 97 Room Air 03/08/17 20:56 100 Room Air 03/08/17 18:00 98.7 83 15 110/59 100 I/O 03/08/17 03/08/17 03/08/17 03/09/17 03/09/17 03/09/17 07:00 15:00 23:00 07:00 15:00 23:00 Intake Total 1416 ml Output Total 450 ml Balance 966 ml Intake Oral 840 ml IV Total 576 ml Output Urine Total 450 ml Stool Total 0 ml Imaging Last Impressions Chest X-Ray 03/08/171921 Signed Impressions: Service Date/Time: Wednesday, March 08, 2017 19:34 - CONCLUSION: No acute disease. Kane Tejeda MD Abdomen/Pelvis CT 03/08/171921 Signed Impressions: Service Date/Time: Wednesday, March 08, 2017 21:28 - CONCLUSION: 1. Abnormal bowel gas pattern which may represent an ileus or gastroenteritis. Obstruction is less likely. 2. Small amount of fluid is again noted in the pelvis. Kane Tejeda MD Laboratory Test 03/08/17 03/09/17 03/09/17 03/09/17 20:10 01:23 04:45 08:19 White Blood Count 14.4 TH/MM3 11.1 TH/MM3 Red Blood Count 4.29 MIL/MM3 3.80 MIL/MM3 Hemoglobin 12.4 GM/DL 11.0 GM/DL Hematocrit 36.5 % 32.9 % Mean Corpuscular Volume 85.2 FL 86.5 FL Mean Corpuscular Hemoglobin 29.0 PG 29.0 PG Mean Corpuscular Hemoglobin 34.1 % 33.5 % Concent Red Cell Distribution Width 16.5 % 16.5 % Platelet Count 306 TH/MM3 277 TH/MM3 Mean Platelet Volume 7.9 FL 8.2 FL Neutrophils (%) (Auto) 90.8 % 76.4 % Lymphocytes (%) (Auto) 3.9 % 13.3 % Monocytes (%) (Auto) 4.5 % 7.8 % Eosinophils (%) (Auto) 0.5 % 1.8 % Basophils (%) (Auto) 0.3 % 0.7 % Neutrophils # (Auto) 13.0 TH/MM3 8.5 TH/MM3 Lymphocytes # (Auto) 0.6 TH/MM3 1.5 TH/MM3 Monocytes # (Auto) 0.6 TH/MM3 0.9 TH/MM3 Eosinophils # (Auto) 0.1 TH/MM3 0.2 TH/MM3 Basophils # (Auto) 0.0 TH/MM3 0.1 TH/MM3 CBC Comment DIFF FINAL DIFF FINAL Differential Comment Urine Color YELLOW Urine Turbidity CLEAR Urine pH 6.0 Urine Specific [place] 1.016 Urine Protein 30 mg/dL Urine Glucose (UA) NEG mg/dL Urine Ketones NEG mg/dL Urine Occult Blood NEG Urine Nitrite NEG Urine Bilirubin NEG Urine Urobilinogen LESS THAN 2.0 MG/DL Urine Leukocyte Esterase SMALL Urine RBC LESS THAN 1 /hpf Urine WBC 3 /hpf Urine Squamous Epithelial 2 /hpf Cells Urine Bacteria RARE /hpf Urine Hyaline Casts 19 /lpf Microscopic Urinalysis Comment CULT NOT INDICATED Sodium Level 138 MEQ/L 138 MEQ/L Potassium Level 2.2 MEQ/L 2.5 MEQ/L 2.7 MEQ/L 2.8 MEQ/L Chloride Level 97 MEQ/L 105 MEQ/L Carbon Dioxide Level 26.6 MEQ/L 19.8 MEQ/L Anion Gap 14 MEQ/L 13 MEQ/L Blood Urea Nitrogen 51 MG/DL 51 MG/DL Creatinine 2.22 MG/DL 1.94 MG/DL Estimat Glomerular Filtration 24 ML/MIN 29 ML/MIN Rate Random Glucose 93 MG/DL 88 MG/DL Calcium Level 9.2 MG/DL 8.6 MG/DL Magnesium Level 2.6 MG/DL 2.4 MG/DL 2.5 MG/DL 2.4 MG/DL Total Bilirubin 0.3 MG/DL Aspartate Amino Transf 28 U/L (AST/SGOT) Alanine Aminotransferase 19 U/L (ALT/SGPT) Alkaline Phosphatase 45 U/L Total Protein 8.0 GM/DL Albumin 4.2 GM/DL Lipase 294 U/L Prothrombin Time 10.7 SEC Prothromb Time International 1.0 RATIO Ratio Activated Partial 25.4 SEC Thromboplast Time Free Thyroxine 0.74 NG/DL Free Triiodothyronine (T3) 1.35 PG/ML pg/dL Thyroid Stimulating Hormone 1.190 uIU/ML 3rd Gen Physical Examination HEENT: EOMI; normocephalic; atraumatic; no jaundice. CHEST: Chest is clear to auscultation and percussion. CARDIAC: Regular rate and rhythm with no murmur gallop or rubs. ABDOMEN: firmenss over LLQ, LLQ significant TTP, no hepatosplenomegaly; bowel sounds are present in all four quadrants. EXTREMITIES: No clubbing, cyanosis, or edema. SKIN: hypopigmented patches on face; no rash; no jaundice. ROLL RECLAIMER: No focal deficits; alert and oriented times three. (Mari Pérez [facility]) Assessment and Plan Plan ASSESSMENT: - weight loss - pt states she has gastroparesis and cannot absorb nutrients and has lost 150 lbs in last year and a half. GI consulted for PEG placement, will hold off until potassium level WNL. - gastroparesis - pt unaware of having GES, says diagnosis came from endoscopy. - abdominal pain - CT 03-08-17 --> 1. Abnormal bowel gas pattern which may represent an ileus or gastroenteritis. Obstruction is less likely. 2. Small amount of fluid is again noted in the pelvis. will do KUB to further evaluate for ileus. Pt claims to have hx fecal impaction and need for disempaction PLAN: - Clears if tolerated - KUB - EGD with PEG when potassium stable - consider GES This pt seen by myself and DR Pulliam and this note is written on his behalf. (Mari Pérez) Physician Comments Seen and examined with ELECTRICAL INSTRUMENT TECHNICIAN, significant weight loss and N/V reported by pt. She wishes to proceed with G tube placement, I think G/J would be a better option for her. IR consulted. check kub. Miralax daily. Will follow. Thank you (Sherine Pulliam MD) Mari Pérez March 09, 2017 10:57 Sherine Pulliam MD March 09, 2017 13:28
[2017-03-09 11:00] LABS: MAGNESIUM 2.5 MG/DL (1.5-2.5)
[2017-03-09 11:01] LABS: POTASSIUM 3.8 MEQ/L (3.5-5.1)
[2017-03-09 13:55] LABS: MAGNESIUM 2.4 MG/DL (1.5-2.5); POTASSIUM 3.3 MEQ/L (3.5-5.1)
[2017-03-09] MEDS ORDERED: SODIUM CHLOR 0.9% 1000 ML INJ 1,000 ML IV SCH (16:15)
[2017-03-09] MEDS ORDERED: SODIUM CHLORID 0.9% 500 ML INJ 500 ML IV ONE (16:15)
--- NOTE | 2017-03-09 16:36 | RADRPT ---
EXAM DATE/TIME: 03/09/2017 16:25 [place] COMPARISON: CT ABDOMEN & PELVIS W/O CONTRAST, March 08, 2017, 21:28. ABDOMEN FLAT & UPRIGHT, April 18, 2016, 23:13. ABDOMEN KUB ONLY, July 21, 2015, 15:29. INDICATIONS : Abdominal pain, ileus. MEDICAL HISTORY : None. SURGICAL HISTORY : Appendectomy. ENCOUNTER: Initial ACUITY: 3 days PAIN SCORE: 10/10 LOCATION: Left lower quadrant abdomen. FINDINGS: 2 supine frontal views of the abdomen demonstrate abnormally dilated small bowel in the mid to upper abdomen. These measure up to 3.4 cm in diameter. There is a relative paucity of bowel gas or distal s mall bowel gas but yesterday's CT documented most of the small bowel loops to be filled with fluid. T here is no organomegaly appreciated. No concerning calcifications are seen. Bones demonstrate no acut e finding. CONCLUSION: Persistent abnormally dilated small bowel with little distal gas and colon gas visualized. Differenti al diagnosis remains ileus versus distal small bowel obstruction. Consider followup imaging to assess for change. Brian Zhou MD on March 09, 2017 at 16:32 Board Certified Radiologist. This report was verified electronically.
--- NOTE | 2017-03-09 16:59 | EKG ---
Date Performed: 03/08/2017 Time Performed: 19:43:45 PTAGE: 41 years EKG: Sinus rhythm POSSIBLE LEFT ATRIAL ENLARGEMENT INTRAVENTRICULAR CONDUCTION DELAY Nonspecific ST-T changes ABNORMAL ECG No change compared to the prior study of 01/03/2017. PREVIOUS TRACING : 01/03/2017 10.23 DOCTOR: Albert Garcia Interpretating Date/Time 03/09/2017 16:57:35
[2017-03-09] MEDS: POTASSIUM PHOSPHATE MONOBASIC 500 MG TAB PO SCH (17:11)
[2017-03-09] MEDS: POTASSIUM CHLORIDE 20 MEQ CONTROLLED RELEASE TAB PO SCH (17:11)
[2017-03-09] MEDS: POTASSIUM CHLOR 10 MEQ PREMIX 100 ML IV SCH ×3 (18:24→21:52)
[2017-03-09] MEDS: MAGNESIUM OXIDE 400 MG TAB PO SCH (20:20)
[2017-03-09 20:24] LABS: BETA HCG QUANT LESS THAN 1 MIU/ML (0-5); MAGNESIUM 2.5 MG/DL (1.5-2.5)
[2017-03-09 20:31] LABS: POTASSIUM 2.8 MEQ/L (3.5-5.1)
[2017-03-09] MEDS ORDERED: POTASSIUM CHLOR 20 MEQ PREMIX 100 ML IV SCH (21:30)
[2017-03-09] MEDS: SODIUM CHLOR 0.9% 1000 ML INJ 1,000 ML IV SCH (21:56)
[2017-03-10] VITALS (22 sets, daily range): BP systolic 107–137; BP diastolic 73–91; PULSE 76–103; RESP 16–20; TEMP 98.5–99.3; O2SAT 96–99
[2017-03-10] MEDS: MORPHINE SULFATE 4 MG/ML INJ IV PUSH PRN ×4 (02:15→21:33)
[2017-03-10] MEDS: METOCLOPRAMIDE HCL 10 MG/2 ML VIAL IV PUSH PRN ×3 (03:48→13:29)
[2017-03-10] MEDS: SUCRALFATE 1 GM/10 ML CUP PO SCH ×4 (05:53→21:00)
[2017-03-10] MEDS ORDERED: PANTOPRAZOLE SOD 40 MG DELAYED RELEASE TAB PO SCH (06:00)
[2017-03-10 07:40] LABS: MAGNESIUM 2.5 MG/DL (1.5-2.5)
[2017-03-10 07:51] LABS: POTASSIUM 2.6 MEQ/L (3.5-5.1)
[2017-03-10] MEDS: SODIUM CHLORIDE 0.9% FLUSH 10 ML FLUSH IV FLUSH SCH ×2 (08:20→21:36)
[2017-03-10] MEDS: ONDANSETRON HCL 4 MG/2 ML VIAL IVP PRN ×2 (08:20→15:27)
[2017-03-10] MEDS: POTASSIUM PHOSPHATE MONOBASIC 500 MG TAB PO SCH (08:21)
[2017-03-10] MEDS: POTASSIUM CHLORIDE 20 MEQ CONTROLLED RELEASE TAB PO SCH ×3 (08:21→17:08)
[2017-03-10] MEDS: MAGNESIUM OXIDE 400 MG TAB PO SCH ×2 (08:21→21:00)
[2017-03-10] MEDS: SODIUM CHLOR 0.9% 1000 ML INJ 1,000 ML IV SCH ×2 (08:21→15:40)
--- NOTE | 2017-03-10 08:26 | HHI.PR ---
Subjective Remarks This is a pleasant 41 y/o Female recently discharged from this facility January 18, had another recent admission in December this year, on that opportunity was admitted due to Renal Failure, came to ER with Abdominal pain dizziness and palpitations. She has Gastroparesis, Esophagitis, PUD, history of Appendix Cancer. 03/09: Seen in her bedroom, continue with electrolyte derangement continue replacing her electrolytes, continue Hydration for Acute Kidney Injury, states is not able to drink and eat well due to nausea and vomit. 03/10: Seen by GI specialist, with Diagnosis of Gastroparesis and cannot absorb nutrients and has lost 150 pounds, held PEG placement until Potassium level improve, Status post PEG tube placement, following Potassium level. No nausea, vomit or diarrhea. Objective Vital Signs Date Time Temp Pulse Resp B/P Pulse Ox O2 Delivery O2 Flow Rate FiO2 03/10/17 06:00 78 03/10/17 05:00 83 03/10/17 04:00 81 03/10/17 04:00 99.3 81 20 113/77 03/10/17 03:00 76 03/10/17 02:20 19 03/10/17 02:00 78 03/10/17 01:00 78 03/10/17 00:00 98.8 86 20 107/73 03/10/17 00:00 86 03/09/17 23:00 82 03/09/17 22:00 78 03/09/17 21:39 21 03/09/17 21:00 82 03/09/17 20:00 98.6 97 18 120/83 03/09/17 20:00 97 03/09/17 19:15 97 03/09/17 19:00 97 03/09/17 18:11 98.7 75 19 120/68 03/09/17 11:11 98.8 76 15 110/58 98 03/09/17 09:59 98 Room Air 03/09/17 08:43 98.1 77 17 123/72 100 I/O 03/09/17 03/09/17 03/09/17 03/10/17 03/10/17 03/10/17 07:00 15:00 23:00 07:00 15:00 23:00 Intake Total 1416 ml 1268 ml Output Total 450 ml 3201 ml Balance 966 ml -1933 ml Intake Oral 840 ml 480 ml IV Total 576 ml 788 ml Output Urine Total 450 ml 1300 ml Stool Total 0 ml 1 ml Emesis 1900 ml Result Diagram: 03/09/17 0445 03/10/17 0612 Imaging Last Impressions Abdomen X-Ray 03/09/17 0000 Signed Impressions: Service Date/Time: March 16:25 - CONCLUSION: Persistent abnormally dilated small bowel with little distal gas and colon gas visualized. Differential diagnosis remains ileus versus distal small bowel obstruction. Consider followup imaging to assess for change. Brian Zhou MD Chest X-Ray 03/08/171921 Signed Impressions: Service Date/Time: Wednesday, March 08, 2017 19:34 - CONCLUSION: No acute disease. Kane Tejeda MD Abdomen/Pelvis CT 03/08/171921 Signed Impressions: Service Date/Time: Wednesday, March 08, 2017 21:28 - CONCLUSION: 1. Abnormal bowel gas pattern which may represent an ileus or gastroenteritis. Obstruction is less likely. 2. Small amount of fluid is again noted in the pelvis. Kane Tejeda MD Procedures No procedures performed. Other Results Laboratory Tests Test 03/08/17 03/09/17 03/09/17 03/09/17 20:10 01:23 04:45 19:10 Urine Color YELLOW Urine Turbidity CLEAR Urine pH 6.0 Urine Specific [place] 1.016 Urine Protein 30 mg/dL Urine Glucose (UA) NEG mg/dL Urine Ketones NEG mg/dL Urine Occult Blood NEG Urine Nitrite NEG Urine Bilirubin NEG Urine Urobilinogen LESS THAN 2.0 MG/DL Urine Leukocyte Esterase SMALL Urine RBC LESS THAN 1 /hpf Urine WBC 3 /hpf Urine Squamous Epithelial 2 /hpf Cells Urine Bacteria RARE /hpf Urine Hyaline Casts 19 /lpf Microscopic Urinalysis Comment CULT NOT INDICATED Total Bilirubin 0.3 MG/DL Aspartate Amino Transf 28 U/L (AST/SGOT) Alanine Aminotransferase 19 U/L (ALT/SGPT) Alkaline Phosphatase 45 U/L Total Protein 8.0 GM/DL Albumin 4.2 GM/DL Lipase 294 U/L Prothrombin Time 10.7 SEC Prothromb Time International 1.0 RATIO Ratio Activated Partial 25.4 SEC Thromboplast Time Free Thyroxine 0.74 NG/DL Free Triiodothyronine (T3) 1.35 PG/ML pg/dL Thyroid Stimulating Hormone 1.190 uIU/ML 3rd Gen White Blood Count 11.1 TH/MM3 Red Blood Count 3.80 MIL/MM3 Hemoglobin 11.0 GM/DL Hematocrit 32.9 % Mean Corpuscular Volume 86.5 FL Mean Corpuscular Hemoglobin 29.0 PG Mean Corpuscular Hemoglobin 33.5 % Concent Red Cell Distribution Width 16.5 % Platelet Count 277 TH/MM3 Mean Platelet Volume 8.2 FL Neutrophils (%) (Auto) 76.4 % Lymphocytes (%) (Auto) 13.3 % Monocytes (%) (Auto) 7.8 % Eosinophils (%) (Auto) 1.8 % Basophils (%) (Auto) 0.7 % Neutrophils # (Auto) 8.5 TH/MM3 Lymphocytes # (Auto) 1.5 TH/MM3 Monocytes # (Auto) 0.9 TH/MM3 Eosinophils # (Auto) 0.2 TH/MM3 Basophils # (Auto) 0.1 TH/MM3 CBC Comment DIFF FINAL Differential Comment Human Chorionic Gonadotropin, LESS THAN 1 Quant MIU/ML Test 03/10/17 06:12 Sodium Level 142 MEQ/L Potassium Level 2.6 MEQ/L Chloride Level 104 MEQ/L Carbon Dioxide Level 25.0 MEQ/L Anion Gap 13 MEQ/L Blood Urea Nitrogen 42 MG/DL Creatinine 1.52 MG/DL Estimat Glomerular Filtration 38 ML/MIN Rate Random Glucose 99 MG/DL Calcium Level 9.8 MG/DL Phosphorus Level 4.0 MG/DL Magnesium Level 2.5 MG/DL Objective Remarks GENERAL: This is a chronically ill-appearing female patient, in no apparent distress. SKIN: No rashes, ecchymoses or lesions. Cool and dry. HEAD: Atraumatic. Normocephalic. EYES: No scleral icterus. No injection or drainage. ENT: Nose without bleeding, purulent drainage. Absent dentition in upper front. NECK: Trachea midline. No JVD or lymphadenopathy. CARDIOVASCULAR: Regular rate and rhythm without murmurs, gallops, or rubs. RESPIRATORY: Clear to auscultation. Breath sounds equal bilaterally. No wheezes , rales, or rhonchi. GASTROINTESTINAL: Abdomen soft, nondistended. No guarding. Abdomen diffusely tender. MUSCULOSKELETAL: Extremities without clubbing, cyanosis, or edema. No calf tenderness. NEUROLOGICAL: Awake and alert. Motor and sensory grossly within normal limits. Normal speech. Medications and IVs Current Medications Medications (Trade) Dose Ordered Sig/Osito Route Start Time Stop Time Status Last Admin (NS Flush) 2 ml UNSCH PRN IV FLUSH 03/08/17 22:00 (NS Flush) 2 ml BID IV FLUSH 03/09/17 09:00 03/10/17 08:20 (Zofran Inj) 4 mg Q6H PRN IVP 03/08/17 22:00 03/10/17 08:20 (Narcan Inj) 0.4 mg UNSCH PRN IV 03/08/17 22:00 (Vitamin D3) 20,000 units Q3D PO 03/09/17 09:00 03/09/17 09:15 (Protonix) 40 mg DAILY@06 PO 03/10/17 06:00 (Carafate Liq) 1 gm ACHS PO 03/09/17 07:00 03/09/17 10:58 (Morphine Inj) 2 mg Q6HR PRN IV PUSH 03/09/17 02:00 03/10/17 08:20 (Heparin Inj) 5,000 units Q8HR SQ 03/09/17 06:00 03/09/17 06:11 (Reglan Inj) 10 mg Q8H PRN IV PUSH 03/09/17 08:30 03/10/17 03:49 (KCl) 40 meq TID PO 03/09/17 18:00 (K-Phos) 1,000 mg DAILY PO 03/09/17 13:15 03/09/17 17:11 Magnesium Oxide 400 mg 400 mg Q12HR PO 03/09/17 21:00 Sodium Chloride 1,000 ml @ 84 mls/hr [id number] IV 03/09/17 22:00 03/10/17 08:21 (KCl 20 Meq Premix Inj) 100 ml @ 50 mls/hr Q2H IV 03/10/17 08:30 03/10/17 12:29 UNV A/P Assessment and Plan 1. Severe Electrolyte derangement chronic issue, probable related to GI malabsorption, her ECG showed sinus rhythm, electrolytes are followed every 3 hours. added her home regimen by mouth and will help with IV replacement as needed Potassium today 2.6 replaced and following. 2. Weight loss due to probable Gastroparesis, status post PEG placement, Foreign Exchange Student Coordinator consult. Ensure. 3. Acute kidney injury on IV fluids and improving Creatinine 1.52 4. Anxiety Disorder asked for Diazepam DVT prophylaxis - Heparin 5000 units subq q8h Discussed Condition With patient and Nurse Miss Davis. Discharge Planning Expected in one to two days. Romaine Bowden MD March 10, 2017 08:26
[2017-03-10] MEDS: POTASSIUM CHLOR 20 MEQ PREMIX 100 ML IV SCH ×4 (08:29→23:54)
[2017-03-10] MEDS ORDERED: PROPOFOL 200 MG/20 ML AMP IV ONE (08:32)
[2017-03-10] MEDS ORDERED: ONDANSETRON HCL 4 MG/2 ML VIAL IV PUSH ONE (08:32)
[2017-03-10] MEDS ORDERED: LACTATED RINGER'S 1,000 ML BAG IV ONE (08:32)
[2017-03-10] MEDS ORDERED: LEVOFLOXACIN 500 MG PREMIX INJ 100 ML IV ONE (11:02)
[2017-03-10] MEDS ORDERED: diphenhydrAMINE HCL 50 MG/ML VIAL ONE (11:25)
[2017-03-10] MEDS ORDERED: GLUCAGON 1 MG/ML VIAL ONE (11:33)
[2017-03-10] MEDS ORDERED: IOHEXOL 300 MG/ML 50 ML BTL (for RAD DIAG) G-TUBE ONE (12:26)
[2017-03-10] MEDS ORDERED: IOHEXOL 350 MG/ML 50 ML BTL (for RAD DIAG) G-TUBE ONE (12:30)
--- NOTE | 2017-03-10 12:32 | PD.RAD ---
Post Procedure Progress Note Pre Procedure Diagnosis: (1) Nausea vomiting and diarrhea Post Procedure Diagnosis: (1) Nausea vomiting and diarrhea Procedure Date: March 10, 2017 Supervising Radiologist: Vic Williamson JR Proceduralist/Assist: Brenda Echevarria RT(R), RT Bentley(R)() Anesthesia: General Plan of Activity Patient to Unit: PACU Patient Condition: Good See PACS Report for procedural detail/treatment Feeding Tube Gastro/Jejunostomy Placement Turkish: 22 Findings: GJ tube in good position Jr. Clay,Vic Francis MD March 10, 2017 12:32
[2017-03-10] MEDS ORDERED: DO NOT ADM ANY ANTICOAGULANT DRUGS PRN (12:35)
[2017-03-10] MEDS ORDERED: *morphine SULFATE 8 MG/ML PERIprocedure ONLY ONE (13:01)
[2017-03-10] MEDS ORDERED: fentaNYL CITRATE 250 MCG/5 ML AMP ONE (13:11)
[2017-03-10] MEDS: HEPARIN SODIUM - SQ 10,000 UNITS/ML VIAL SQ SCH ×2 (13:12→21:35)
[2017-03-10] MEDS ORDERED: MORPHINE SULFATE 4 MG/ML INJ ONE (13:12)
[2017-03-10] MEDS ORDERED: MAGNESIUM CITRATE SOLN 300 ML BTL PO ONE (15:00)
--- NOTE | 2017-03-10 15:03 | RADRPT ---
EXAM DATE/TIME: 03/10/2017 11:00 [facility] COMPARISON: No previous studies available for comparison. INDICATIONS : Patient with history of gastrophoresis in need of gastrojejunal tube placement. MEDICAL HISTORY : Ulcerative colitis Appendix cancer 3 - 4 years ago [facility] Endometriosis Epilepsy Hypokalemia Renal failure Hx fecal impaction Gastrophoresis SVT SURGICAL HISTORY : Laparoscopy x 4 Cystoscopy - interstitial cystitis - resolved EGD/Colonoscopy ENCOUNTER: Initial ACUITY: > 1 year PAIN SCORE: 8/10 LOCATION: Abdomen. FLUORO TIME: 16.1 minutes IMAGE SERIES: 2 CONTRAST: 40 cc Omnipaque (iohexol) 350 DEVICE(S): 1.) 22 Fr Transgastric tube PROCEDURE : 1. Limited abdominal ultrasound. 2. Fluoroscopically guided gastrojejunostomy tube placement. 3. General anesthesia utilized. Please see their report separately. The risks, benefits and alternatives to the procedure were explained and verbal and written consent w as obtained. The site was prepped in sterile fashion. Full sterile technique was used, including ca p, mask, sterile gloves and gown and a large sterile sheet. Hand hygiene and 2% chlorhexidine and/or betadine/alcohol prep was utilized per protocol for cutaneous antisepsis. The skin and subcutaneous tissues were infiltrated with local anesthetic solution. Ultrasound was used to margarita the position of the liver. 1 mg of Glucagon was administered. The stoma ch was insufflated with room air using. Three percutaneous fasteners were placed to secure the anteri or gastric wall. A small incision was made between the fasteners. The stomach was accessed with an 18 gauge needle. A n 0.035 wire was advanced into the small bowel. The tract was dilated. The gastrojejunostomy tube w as introduced through a peel-away sheath. The position was confirmed with an injection of contrast in both the gastric and jejunal lumens. Conscious sedation was performed with the prescribed dosages and duration as above in the presence of an independent trained radiology nurse to assist in the monitoring of the patient. EKG and oximetry remained stable throughout the procedure. The patient tolerated the procedure well and there were n o complications. The patient was sent to post anesthesia recovery in stable condition. CONCLUSION: Uncomplicated gastrojejunostomy tube placement as above. Vic Williamson Jr., MD on March 10, 2017 at 15:01 Board Certified Radiologist. This report was verified electronically.
--- NOTE | 2017-03-10 15:04 | HHI.GIFU ---
Subjective Remarks Pt resting in bed, just had GJ placement. She says she still has nausea, vomited this morning. She had scant, hard pellet like BM this morning. (Mari Pérez) Objective Vitals I&O Vital Signs Date Time Temp Pulse Resp B/P Pulse Ox O2 Delivery O2 Flow Rate FiO2 03/10/17 13:30 82 03/10/17 13:30 98.6 84 16 137/91 99 03/10/17 13:15 98.4 84 16 148/94 100 Nasal Cannula 2 03/10/17 13:00 85 16 151/92 100 Nasal Cannula 2 03/10/17 12:45 92 16 154/94 100 Nasal Cannula 2 03/10/17 12:30 97.9 89 16 153/101 100 Nasal Cannula 2 03/10/17 10:00 92 03/10/17 10:00 21 03/10/17 09:00 84 03/10/17 08:26 16 03/10/17 08:00 88 03/10/17 08:00 98.7 103 16 125/75 97 03/10/17 07:00 88 03/10/17 06:00 78 03/10/17 05:00 83 03/10/17 04:00 81 03/10/17 04:00 99.3 81 20 113/77 03/10/17 03:00 76 03/10/17 02:00 78 03/10/17 01:00 78 03/10/17 00:00 98.8 86 20 107/73 03/10/17 00:00 86 03/09/17 23:00 82 03/09/17 22:00 78 03/09/17 21:39 21 03/09/17 21:00 82 03/09/17 20:00 98.6 97 18 120/83 03/09/17 20:00 97 03/09/17 19:15 97 03/09/17 19:00 97 03/09/17 18:11 98.7 75 19 120/68 I/O 03/09/17 03/09/17 03/09/17 03/10/17 03/10/17 03/10/17 07:00 15:00 23:00 07:00 15:00 23:00 Intake Total 1416 ml 1268 ml 800 ml Output Total 450 ml 3201 ml 400 ml Balance 966 ml -1933 ml 400 ml Intake Oral 840 ml 480 ml IV Total 576 ml 788 ml 100 ml Other 700 ml Output Urine Total 450 ml 1300 ml Stool Total 0 ml 1 ml Emesis 1900 ml 400 ml Laboratory Laboratory Tests Test 03/09/17 03/10/17 19:10 06:12 Potassium Level 2.8 2.6 Magnesium Level 2.5 2.5 Human Chorionic Gonadotropin, LESS THAN 1 Quant Sodium Level 142 Chloride Level 104 Carbon Dioxide Level 25.0 Anion Gap 13 Blood Urea Nitrogen 42 Creatinine 1.52 Estimat Glomerular Filtration 38 Rate Random Glucose 99 Calcium Level 9.8 Phosphorus Level 4.0 Imaging Last Impressions Abdomen X-Ray 03/09/17 0000 Signed Impressions: Service Date/Time: March 16:25 - CONCLUSION: Persistent abnormally dilated small bowel with little distal gas and colon gas visualized. Differential diagnosis remains ileus versus distal small bowel obstruction. Consider followup imaging to assess for change. Brian Zhou MD Chest X-Ray 03/08/171921 Signed Impressions: Service Date/Time: Wednesday, March 08, 2017 19:34 - CONCLUSION: No acute disease. Kane Tejeda MD Abdomen/Pelvis CT 03/08/171921 Signed Impressions: Service Date/Time: Wednesday, March 08, 2017 21:28 - CONCLUSION: 1. Abnormal bowel gas pattern which may represent an ileus or gastroenteritis. Obstruction is less likely. 2. Small amount of fluid is again noted in the pelvis. Kane Tejeda MD Physical Exam HEENT: EOMI; normocephalic; atraumatic; no jaundice. CHEST: Chest is clear to auscultation and percussion. CARDIAC: Regular rate and rhythm with no murmur gallop or rubs. ABDOMEN: lower abd firm and tender; no hepatosplenomegaly; bowel sounds are present in all four quadrants, GJ dressing clean and dry. EXTREMITIES: No clubbing, cyanosis, or edema. SKIN: Normal; no rash; no jaundice. CUT OFF SAW TENDER METAL: No focal deficits; alert and oriented times three. (Mari Pérez) Assessment and Plan Plan ASSESSMENT: - weight loss - pt states she "has gastroparesis and cannot absorb nutrients" and has lost 150 lbs in last year and a half. GI consulted for PEG placement - gastroparesis - s/p GJ tube placement by IR. pt unaware of having GES, says diagnosis came from endoscopy. - abdominal pain - KUB 03-09-17 --> Persistent abnormally dilated small bowel with little distal gas and colon gas visualized. Differential diagnosis remains ileus versus distal small bowel obstruction. Consider followup imaging to assess for change. CT 03-08-17 --> 1. Abnormal bowel gas pattern which may represent an ileus or gastroenteritis. Obstruction is less likely. 2. Small amount of fluid is again noted in the pelvis. will do KUB to further evaluate for ileus. Pt claims to have hx fecal impaction and need for disempaction. Will give SSE, Mg Citrate and repeat KUB in morning. PLAN: - Clears if tolerated - SSE x 2 - Mg Citrate - KUB in am - consider GES This pt seen by myself and DR Pulliam and this note is written on his behalf. (Mari Pérez) Physician Comments Seen and examined with MORTGAGE FUNDER, s/p g/j tube for nutrition. Bowel regimen for constipation. (Sherine Pulliam MD) Mari Pérez March 10, 2017 15:04 Sherine Pulliam MD March 10, 2017 15:32
[2017-03-10] MEDS: DIAZEPAM 5 MG TAB PEG PRN (15:58)
--- NOTE | 2017-03-10 18:30 | RADRPT ---
EXAM DATE/TIME: 03/10/2017 15:19 [facility] COMPARISON: GASTROJEJUNAL TUBE [facility] W/US, March 10, 2017, 11:00. INDICATIONS : Abdominal pain around tube placement site. MEDICAL HISTORY : Gastroparesis. Endometreiosis. Colitis. SURGICAL HISTORY : Appendectomy. ENCOUNTER: Initial ACUITY: 3 days PAIN SCORE: 8/10 LOCATION: Abdomen, midline. FINDINGS: Supine view of the abdomen was performed. The abdominal bowel gas pattern is normal. No abnormal ma sses, calcifications, or organomegaly is seen. The osseous structures are unremarkable. There is a gastrojejunostomy tube. CONCLUSION: Benign-appearing abdomen. No free air or other acute complication demonstrated after gastrojejunostom y tube placement. No obstruction.. Brian Arrieta MD on March 10, 2017 at 18:27 Board Certified Radiologist. This report was verified electronically.
[2017-03-10] MEDS ORDERED: LORazepam 2 MG/ML VIAL IV PUSH ONE (21:15)
[2017-03-10] MEDS: PANTOPRAZOLE SODIUM 40 MG VIAL IV PUSH SCH (21:34)
[2017-03-11] VITALS (27 sets, daily range): BP systolic 108–137; BP diastolic 65–83; PULSE 69–106; RESP 16–47; TEMP 98–98.8; O2SAT 95–100
[2017-03-11] MEDS: POTASSIUM CHLOR 20 MEQ PREMIX 100 ML IV SCH ×3 (01:00→10:15)
[2017-03-11] MEDS: SODIUM CHLOR 0.9% 1000 ML INJ 1,000 ML IV SCH ×4 (01:55→22:25)
[2017-03-11] MEDS: MORPHINE SULFATE 4 MG/ML INJ IV PUSH PRN ×3 (04:01→22:24)
[2017-03-11] MEDS: METOCLOPRAMIDE HCL 10 MG/2 ML VIAL IV PUSH PRN (04:01)
[2017-03-11] MEDS: HEPARIN SODIUM - SQ 10,000 UNITS/ML VIAL SQ SCH ×3 (05:05→21:07)
--- NOTE | 2017-03-11 06:19 | RADRPT ---
EXAM DATE/TIME: 03/11/2017 03:50 [facility] COMPARISON: ABDOMEN KUB ONLY, March 10, 2017, 15:19. INDICATIONS : Abdominal pain. MEDICAL HISTORY : Gastroparesis. Endometreiosis Colitis SURGICAL HISTORY : Appendectomy. ENCOUNTER: Subsequent ACUITY: 4 - 6 days PAIN SCORE: 3/10 LOCATION: Bilateral Abdomen FINDINGS: Supine view of the abdomen was performed. There are multiple dilated small bowel loops. Gastrojejunos kristopher tube again seen. No abnormal masses, calcifications, or organomegaly is seen. The osseous stru ctures are unremarkable. CONCLUSION: Multiple dilated small bowel loops again seen. Clayton Leonard MD on March 11, 2017 at 6:17 Board Certified Radiologist. This report was verified electronically.
[2017-03-11 07:58] LABS: POTASSIUM 3.3 MEQ/L (3.5-5.1)
--- NOTE | 2017-03-11 08:11 | HHI.PR ---
Subjective Remarks This is a pleasant 41 y/o Female recently discharged from this facility January 18, had another recent admission in December this year, on that opportunity was admitted due to Renal Failure, came to ER with Abdominal pain dizziness and palpitations. She has Gastroparesis, Esophagitis, PUD, history of Appendix Cancer. 03/10: Seen by GI specialist, with Diagnosis of Gastroparesis and cannot absorb nutrients and has lost 150 pounds, held PEG placement until Potassium level improve, Status post PEG tube placement. 03/11: Patient in her bedroom and discussed with nurse, has high output through PEG tube, on liquid diet, continue with severe electrolyte derangement GI specialist following, Objective Vital Signs Date Time Temp Pulse Resp B/P Pulse Ox O2 Delivery O2 Flow Rate FiO2 03/11/17 07:33 74 03/11/17 06:00 76 03/11/17 05:00 78 03/11/17 04:06 17 03/11/17 04:00 85 03/11/17 04:00 98.2 85 47 137/83 96 03/11/17 03:00 85 03/11/17 02:00 84 03/11/17 01:00 82 03/11/17 00:00 98.3 80 20 120/78 95 03/11/17 00:00 85 03/10/17 23:00 80 03/10/17 22:00 92 03/10/17 21:00 85 03/10/17 20:00 82 03/10/17 20:00 98.5 82 18 118/78 96 03/10/17 18:00 80 03/10/17 17:22 98 21 03/10/17 17:00 80 03/10/17 16:00 86 03/10/17 16:00 98.7 87 16 126/79 98 03/10/17 15:00 88 03/10/17 14:00 82 03/10/17 13:30 82 03/10/17 13:30 98.6 84 16 137/91 99 03/10/17 13:15 98.4 84 16 148/94 100 Nasal Cannula 2 03/10/17 13:00 85 16 151/92 100 Nasal Cannula 2 03/10/17 12:45 92 16 154/94 100 Nasal Cannula 2 03/10/17 12:30 97.9 89 16 153/101 100 Nasal Cannula 2 03/10/17 10:00 92 03/10/17 10:00 21 03/10/17 09:00 84 I/O 03/10/17 03/10/17 03/10/17 03/11/17 03/11/17 03/11/17 07:00 15:00 23:00 07:00 15:00 23:00 Intake Total 1268 ml 800 ml 1220 ml 2101 ml Output Total 3201 ml 400 ml 650 ml 2900 ml Balance -1933 ml 400 ml 570 ml -799 ml Intake Oral 480 ml 596 ml 240 ml IV Total 788 ml 100 ml 624 ml 1861 ml Other 700 ml Output Urine Total 1300 ml 650 ml 600 ml Stool Total 1 ml Emesis 1900 ml 400 ml 500 ml Drainage Total 1800 ml # Bowel Movements 1 Result Diagram: 03/09/17 0445 03/11/17 0720 Imaging Last Impressions Abdomen X-Ray 03/11/17 0600 Signed Impressions: Service Date/Time: Saturday, March 11, 2017 03:50 - CONCLUSION: Multiple dilated small bowel loops again seen. Clayton Leonard MD Gastrostomy Tube Placement 03/10/17 0000 Signed Impressions: Service Date/Time: Friday, March 10, 2017 11:00 - CONCLUSION: Uncomplicated gastrojejunostomy tube placement as above. Vic Williamson Jr., MD Chest X-Ray 03/08/171921 Signed Impressions: Service Date/Time: Wednesday, March 08, 2017 19:34 - CONCLUSION: No acute disease. Kane Tejeda MD Abdomen/Pelvis CT 03/08/171921 Signed Impressions: Service Date/Time: Wednesday, March 08, 2017 21:28 - CONCLUSION: 1. Abnormal bowel gas pattern which may represent an ileus or gastroenteritis. Obstruction is less likely. 2. Small amount of fluid is again noted in the pelvis. Kane Tejeda MD Procedures Gastrostomy tube placement 03/10/17 Other Results Laboratory Tests Test 03/08/17 03/09/17 03/09/17 03/09/17 20:10 01:23 04:45 19:10 Urine Color YELLOW Urine Turbidity CLEAR Urine pH 6.0 Urine Specific Mclean 1.016 Urine Protein 30 mg/dL Urine Glucose (UA) NEG mg/dL Urine Ketones NEG mg/dL Urine Occult Blood NEG Urine Nitrite NEG Urine Bilirubin NEG Urine Urobilinogen LESS THAN 2.0 MG/DL Urine Leukocyte Esterase SMALL Urine RBC LESS THAN 1 /hpf Urine WBC 3 /hpf Urine Squamous Epithelial 2 /hpf Cells Urine Bacteria RARE /hpf Urine Hyaline Casts 19 /lpf Microscopic Urinalysis Comment CULT NOT INDICATED Total Bilirubin 0.3 MG/DL Aspartate Amino Transf 28 U/L (AST/SGOT) Alanine Aminotransferase 19 U/L (ALT/SGPT) Alkaline Phosphatase 45 U/L Total Protein 8.0 GM/DL Albumin 4.2 GM/DL Lipase 294 U/L Prothrombin Time 10.7 SEC Prothromb Time International 1.0 RATIO Ratio Activated Partial 25.4 SEC Thromboplast Time Free Thyroxine 0.74 NG/DL Free Triiodothyronine (T3) 1.35 PG/ML pg/dL Thyroid Stimulating Hormone 1.190 uIU/ML 3rd Gen White Blood Count 11.1 TH/MM3 Red Blood Count 3.80 MIL/MM3 Hemoglobin 11.0 GM/DL Hematocrit 32.9 % Mean Corpuscular Volume 86.5 FL Mean Corpuscular Hemoglobin 29.0 PG Mean Corpuscular Hemoglobin 33.5 % Concent Red Cell Distribution Width 16.5 % Platelet Count 277 TH/MM3 Mean Platelet Volume 8.2 FL Neutrophils (%) (Auto) 76.4 % Lymphocytes (%) (Auto) 13.3 % Monocytes (%) (Auto) 7.8 % Eosinophils (%) (Auto) 1.8 % Basophils (%) (Auto) 0.7 % Neutrophils # (Auto) 8.5 TH/MM3 Lymphocytes # (Auto) 1.5 TH/MM3 Monocytes # (Auto) 0.9 TH/MM3 Eosinophils # (Auto) 0.2 TH/MM3 Basophils # (Auto) 0.1 TH/MM3 CBC Comment DIFF FINAL Differential Comment Human Chorionic Gonadotropin, LESS THAN 1 Quant MIU/ML Test 03/10/17 03/11/17 06:12 07:20 Sodium Level 142 MEQ/L Chloride Level 104 MEQ/L Carbon Dioxide Level 25.0 MEQ/L Anion Gap 13 MEQ/L Blood Urea Nitrogen 42 MG/DL Creatinine 1.52 MG/DL Estimat Glomerular Filtration 38 ML/MIN Rate Random Glucose 99 MG/DL Calcium Level 9.8 MG/DL Phosphorus Level 4.0 MG/DL Magnesium Level 2.5 MG/DL Potassium Level 3.3 MEQ/L Objective Remarks GENERAL: This is a chronically ill-appearing female patient, in no apparent distress. SKIN: No rashes, ecchymoses or lesions. Cool and dry. HEAD: Atraumatic. Normocephalic. EYES: No scleral icterus. No injection or drainage. ENT: Nose without bleeding, purulent drainage. Absent dentition in upper front. NECK: Trachea midline. No JVD or lymphadenopathy. CARDIOVASCULAR: Regular rate and rhythm without murmurs, gallops, or rubs. RESPIRATORY: Clear to auscultation. Breath sounds equal bilaterally. No wheezes , rales, or rhonchi. GASTROINTESTINAL: Abdomen soft, nondistended. PEG tube in place. MUSCULOSKELETAL: Extremities without clubbing, cyanosis, or edema. No calf tenderness. NEUROLOGICAL: Awake and alert. Motor and sensory grossly within normal limits. Normal speech. Medications and IVs Current Medications Medications (Trade) Dose Ordered Sig/Osito Route Start Time Stop Time Status Last Admin (NS Flush) 2 ml UNSCH PRN IV FLUSH 03/08/17 22:00 (NS Flush) 2 ml BID IV FLUSH 03/09/17 09:00 03/10/17 21:36 (Zofran Inj) 4 mg Q6H PRN IVP 03/08/17 22:00 03/10/17 15:27 (Narcan Inj) 0.4 mg UNSCH PRN IV 03/08/17 22:00 (Vitamin D3) 20,000 units Q3D PO 03/09/17 09:00 03/09/17 09:15 (Carafate Liq) 1 gm ACHS PO 03/09/17 07:00 03/09/17 10:58 (Morphine Inj) 2 mg Q6HR PRN IV PUSH 03/09/17 02:00 03/11/17 04:01 (Heparin Inj) 5,000 units Q8HR SQ 03/09/17 06:00 03/11/17 05:05 (Reglan Inj) 10 mg Q8H PRN IV PUSH 03/09/17 08:30 03/11/17 04:01 (KCl) 40 meq TID PO 03/09/17 18:00 (K-Phos) 1,000 mg DAILY PO 03/09/17 13:15 03/09/17 17:11 Magnesium Oxide 400 mg 400 mg Q12HR PO 03/09/17 21:00 (NS 1000 ml Inj) 1,000 ml @ 125 mls/hr Q8H IV 03/09/17 22:00 03/10/17 15:40 Miscellaneous Information ALL NURSING DEPARTME... UNSCH PRN .XX 03/10/17 12:35 03/11/17 12:34 (Valium) 5 mg Q12HR PRN PEG 03/10/17 15:30 03/10/17 15:58 (Protonix Inj) 40 mg Q24H IV PUSH 03/10/17 21:00 03/10/17 21:34 A/P Assessment and Plan 1. Severe Electrolyte derangement chronic issue, probable related to GI malabsorption, her ECG showed sinus rhythm, electrolytes are followed every 3 hours. added her home regimen by mouth and will help with IV replacement as needed today 3.3 and given replacement. 2. Weight loss due to probable Gastroparesis, status post PEG placement, Machine Stoppage Frequency Checker consult. Ensure. 3. Acute kidney injury Improving continue IV fluids. 4. Anxiety Disorder asked for Diazepam DVT prophylaxis - Heparin 5000 units subq q8h Discussed Condition With patient and Nurse Discharge Planning Expected in one to two days. Romaine Bowden MD March 11, 2017 08:11 Discharge Planning Expected in one to two days. Romaine Bowden MD March 11, 2017 08:11
[2017-03-11] MEDS: DIAZEPAM 5 MG TAB PEG PRN ×3 (08:24→23:54)
[2017-03-11] MEDS: POTASSIUM PHOSPHATE MONOBASIC 500 MG TAB PEG SCH (08:24)
[2017-03-11] MEDS: SODIUM CHLORIDE 0.9% FLUSH 10 ML FLUSH IV FLUSH SCH ×2 (08:25→16:17)
[2017-03-11] MEDS: SUCRALFATE 1 GM/10 ML CUP PEG SCH ×3 (08:25→21:08)
[2017-03-11] MEDS: MAGNESIUM OXIDE 400 MG TAB PEG SCH ×2 (08:26→21:08)
[2017-03-11] MEDS: POTASSIUM CHLORIDE 25 MEQ EFFERVESCENT TAB PEG SCH ×3 (09:00→18:00)
[2017-03-11 09:42] LABS: BICARBONATE 20.6 MEQ/L (21.0-32.0); MAGNESIUM 2.3 MG/DL (1.5-2.5)
--- NOTE | 2017-03-11 15:40 | HHI.GIFU ---
Subjective Remarks Patient was having a bm when I walked in, it was large and soft, was given mag- citrate yesterday. G tube still to suction, there is a significant amounts of gastric out put in the canister. She is on clears Patient feels much better over all (Nicholas Phelan) Objective Vitals I&O Vital Signs Date Time Temp Pulse Resp B/P Pulse Ox O2 Delivery O2 Flow Rate FiO2 03/11/17 08:45 99 21 03/11/17 07:33 74 03/11/17 06:00 76 03/11/17 05:00 78 03/11/17 04:06 17 03/11/17 04:00 85 03/11/17 04:00 98.2 85 47 137/83 96 03/11/17 03:00 85 03/11/17 02:00 84 03/11/17 01:00 82 03/11/17 00:00 98.3 80 20 120/78 95 03/11/17 00:00 85 03/10/17 23:00 80 03/10/17 22:00 92 03/10/17 21:00 85 03/10/17 20:00 82 03/10/17 20:00 98.5 82 18 118/78 96 03/10/17 18:00 80 03/10/17 17:22 98 21 03/10/17 17:00 80 03/10/17 16:00 86 03/10/17 16:00 98.7 87 16 126/79 98 I/O 03/10/17 03/10/17 03/10/17 03/11/17 03/11/17 03/11/17 07:00 15:00 23:00 07:00 15:00 23:00 Intake Total 1268 ml 800 ml 1220 ml 2101 ml Output Total 3201 ml 400 ml 650 ml 2900 ml Balance -1933 ml 400 ml 570 ml -799 ml Intake Oral 480 ml 596 ml 240 ml IV Total 788 ml 100 ml 624 ml 1861 ml Other 700 ml Output Urine Total 1300 ml 650 ml 600 ml Stool Total 1 ml Emesis 1900 ml 400 ml 500 ml Drainage Total 1800 ml # Bowel Movements 1 Laboratory Laboratory Tests Test 03/10/17 03/11/17 17:49 07:20 Potassium Level 2.7 3.3 Sodium Level 146 Chloride Level 111 Carbon Dioxide Level 20.6 Anion Gap 14 Blood Urea Nitrogen 33 Creatinine 1.25 Estimat Glomerular Filtration 47 Rate Random Glucose 101 Calcium Level 9.0 Magnesium Level 2.3 Imaging Last Impressions Abdomen X-Ray 03/11/17 0600 Signed Impressions: Service Date/Time: Saturday, March 11, 2017 03:50 - CONCLUSION: Multiple dilated small bowel loops again seen. Clayton Leonard MD Gastrostomy Tube Placement 03/10/17 0000 Signed Impressions: Service Date/Time: Friday, March 10, 2017 11:00 - CONCLUSION: Uncomplicated gastrojejunostomy tube placement as above. Vic Williamson Jr., MD Chest X-Ray 03/08/171921 Signed Impressions: Service Date/Time: Wednesday, March 08, 2017 19:34 - CONCLUSION: No acute disease. Kane Tejeda MD Abdomen/Pelvis CT 03/08/171921 Signed Impressions: Service Date/Time: Wednesday, March 08, 2017 21:28 - CONCLUSION: 1. Abnormal bowel gas pattern which may represent an ileus or gastroenteritis. Obstruction is less likely. 2. Small amount of fluid is again noted in the pelvis. Kane Tejeda MD Physical Exam HEENT: EOMI; normocephalic; atraumatic; no jaundice. CHEST: Chest is clear to auscultation and percussion. CARDIAC: Regular rate and rhythm with no murmur gallop or rubs. ABDOMEN: lower abd firm and tender; no hepatosplenomegaly; bowel sounds are present in all four quadrants, GJ tube to LIWS EXTREMITIES: No clubbing, cyanosis, or edema. SKIN: Normal; no rash; no jaundice. SUPERVISOR PUMPING STATION: No focal deficits; alert and oriented times three. (Tapan,Nicholas PEDRO) Assessment and Plan Plan ASSESSMENT: - weight loss - pt states she "has gastroparesis and cannot absorb nutrients" and has lost 150 lbs in last year and a half. GI consulted for PEG placement - gastroparesis - s/p GJ tube placement by IR. pt unaware of having GES, says diagnosis came from endoscopy. G-J tube to LIWS with significant amount of gastric output but she is on clears - abdominal pain - KUB 03-09-17 --> Persistent abnormally dilated small bowel with little distal gas and colon gas visualized. Differential diagnosis remains ileus versus distal small bowel obstruction. Consider followup imaging to assess for change. CT 03-08-17 --> 1. Abnormal bowel gas pattern which may represent an ileus or gastroenteritis. Obstruction is less likely. 2. Small amount of fluid is again noted in the pelvis. will do KUB to further evaluate for ileus. Pt claims to have hx fecal impaction and need for disimpaction. S/p Mag-citrate, patient had a large Bm today KUB (03/11/17) Multiple dilated small bowel loops again seen PLAN: - Clears - Will attempt TF in the am, then can have ELIZABETH - S/P mag-citrate, moving her bowels - KUB in am - Supportive care This pt seen by myself and DR Pulliam and this note is written on his behalf. (Nicholas Phelan) Physician Comments Seen and examined with MAYELA< reports feeling better after BM x 3. Significant output through the G tube. Repeat KUB in am. hold TF for now. (Sherine Pulliam MD) Nicholas Phelan March 11, 2017 15:40 Sherine Pulliam MD March 11, 2017 16:31
[2017-03-11] MEDS: PANTOPRAZOLE SODIUM 40 MG VIAL IV PUSH SCH (21:08)
[2017-03-12] VITALS (26 sets, daily range): BP systolic 90–124; BP diastolic 54–78; PULSE 58–106; RESP 14–20; TEMP 98.6–98.9; O2SAT 94–100
[2017-03-12] MEDS: MORPHINE SULFATE 4 MG/ML INJ IV PUSH PRN ×4 (04:29→22:17)
--- NOTE | 2017-03-12 05:00 | RADRPT ---
EXAM DATE/TIME: 03/12/2017 04:04 [facility] COMPARISON: ABDOMEN KUB ONLY, March 11, 2017, 3:50. INDICATIONS : Abdominal pain. MEDICAL HISTORY : Gastroparesis. Renal failure, acute. Endometreiosis Colitis SURGICAL HISTORY : None. ENCOUNTER: Subsequent ACUITY: 1 week PAIN SCORE: 3/10 LOCATION: Bilateral Abdomen FINDINGS: Supine view of the abdomen was performed. Gaseous distention of multiple bowel loops. There is air in the rectum and large bowel. GJ tube noted. No abnormal masses, calcifications, or organomegaly is se en. The osseous structures are unremarkable. CONCLUSION: Gaseous distention and bowel loops, slightly improved. Clayton Leonard MD on March 12, 2017 at 4:58 Board Certified Radiologist. This report was verified electronically.
[2017-03-12 05:58] LABS: MAGNESIUM 1.8 MG/DL (1.5-2.5)
[2017-03-12] MEDS: SUCRALFATE 1 GM/10 ML CUP PEG SCH ×4 (06:04→21:29)
[2017-03-12] MEDS: HEPARIN SODIUM - SQ 10,000 UNITS/ML VIAL SQ SCH ×3 (06:04→21:29)
[2017-03-12 06:11] LABS: POTASSIUM 2.7 MEQ/L (3.5-5.1)
[2017-03-12] MEDS ORDERED: POTASSIUM CHLORIDE 8 MEQ CONTROLLED RELEASE TAB PO ONE (06:30)
[2017-03-12] MEDS: POTASSIUM CHLOR 20 MEQ PREMIX 100 ML IV SCH ×4 (06:43→10:15)
[2017-03-12] MEDS: MAGNESIUM SULFATE 1 GM PREMIX 100 ML IV SCH ×2 (08:15→09:15)
[2017-03-12] MEDS: SODIUM CHLORIDE 0.9% FLUSH 10 ML FLUSH IV FLUSH SCH ×2 (08:32→21:30)
[2017-03-12] MEDS: POTASSIUM CHLORIDE 25 MEQ EFFERVESCENT TAB PEG SCH ×3 (08:32→18:00)
[2017-03-12] MEDS: POTASSIUM PHOSPHATE MONOBASIC 500 MG TAB PEG SCH (08:32)
[2017-03-12] MEDS: CHOLECALCIFEROL (VIT D3) 5000 UNIT CAP PO SCH (08:32)
[2017-03-12] MEDS: DIAZEPAM 5 MG TAB PEG PRN ×2 (08:47→16:20)
[2017-03-12] MEDS: SODIUM CHLOR 0.9% 1000 ML INJ 1,000 ML IV SCH ×2 (09:55→17:55)
[2017-03-12] MEDS: ONDANSETRON HCL 4 MG/2 ML VIAL IVP PRN (10:39)
[2017-03-12] MEDS: MAGNESIUM OXIDE 400 MG TAB PEG SCH ×2 (11:00→22:17)
--- NOTE | 2017-03-12 11:44 | HHI.PR ---
Subjective Remarks This is a pleasant 41 y/o Female recently discharged from this facility January 18, had another recent admission in December this year, on that opportunity was admitted due to Renal Failure, came to ER with Abdominal pain dizziness and palpitations. She has Gastroparesis, Esophagitis, PUD, history of Appendix Cancer. 03/10: Seen by GI specialist, with Diagnosis of Gastroparesis and cannot absorb nutrients and has lost 150 pounds, held PEG placement until Potassium level improve, Status post PEG tube placement. 03/11: high output through PEG tube, on liquid diet 03/12: Patient seen in her bedroom in the presence at all times of female nurse Miss Mcbride, continue with high output through PEG tube at slow suction, continue with Severe Potassium derangement, even received through her mouth due to PEG suction I do not think was able to adsorb too much, will continue IV replacement. Objective Vital Signs Date Time Temp Pulse Resp B/P Pulse Ox O2 Delivery O2 Flow Rate FiO2 03/12/17 08:28 97 03/12/17 06:00 72 03/12/17 05:00 106 03/12/17 04:34 20 03/12/17 04:00 98.6 74 20 119/77 94 03/12/17 04:00 94 Room Air 03/12/17 04:00 76 03/12/17 03:00 86 03/12/17 02:00 76 03/12/17 01:00 80 03/12/17 00:00 70 03/11/17 23:00 Room Air 03/11/17 23:00 71 03/11/17 23:00 98.4 106 20 111/77 100 03/11/17 22:00 70 03/11/17 21:45 21 03/11/17 21:00 70 03/11/17 20:00 Room Air 03/11/17 20:00 98.1 76 18 113/65 100 03/11/17 20:00 78 03/11/17 19:00 74 03/11/17 18:47 77 03/11/17 17:00 69 03/11/17 16:00 95 03/11/17 16:00 98.5 75 16 108/66 99 03/11/17 15:41 98.5 75 16 108/66 96 03/11/17 15:00 69 03/11/17 14:00 85 03/11/17 13:00 89 03/11/17 12:00 74 I/O 03/11/17 03/11/17 03/11/17 03/12/17 03/12/17 03/12/17 07:00 15:00 23:00 07:00 15:00 23:00 Intake Total 2101 ml 1900 ml 1950 ml Output Total 2900 ml 950 ml 1000 ml Balance -799 ml 950 ml 950 ml Intake Oral 240 ml 800 ml 750 ml IV Total 1861 ml 1100 ml 1200 ml Output Urine Total 600 ml Gastric Drainage Total 1000 ml Emesis 500 ml Drainage Total 1800 ml 950 ml # Voids 6 4 # Bowel Movements 2 4 Result Diagram: 03/09/17 0445 03/12/17 0419 Imaging Last Impressions Abdomen X-Ray 03/12/17 0600 Signed Impressions: Service Date/Time: Sunday, March 12, 2017 04:04 - CONCLUSION: Gaseous distention and bowel loops, slightly improved. Clayton Leonard MD Gastrostomy Tube Placement 03/10/17 0000 Signed Impressions: Service Date/Time: Friday, March 10, 2017 11:00 - CONCLUSION: Uncomplicated gastrojejunostomy tube placement as above. Vic Williamson Jr., MD Chest X-Ray 03/08/171921 Signed Impressions: Service Date/Time: Wednesday, March 08, 2017 19:34 - CONCLUSION: No acute disease. Kane Tejeda MD Abdomen/Pelvis CT 03/08/171921 Signed Impressions: Service Date/Time: Wednesday, March 08, 2017 21:28 - CONCLUSION: 1. Abnormal bowel gas pattern which may represent an ileus or gastroenteritis. Obstruction is less likely. 2. Small amount of fluid is again noted in the pelvis. Kane Tejeda MD Procedures Gastrostomy tube placement 03/10/17 Other Results Laboratory Tests Test 03/08/17 03/09/17 03/09/17 03/09/17 20:10 01:23 04:45 19:10 Urine Color YELLOW Urine Turbidity CLEAR Urine pH 6.0 Urine Specific [place] 1.016 Urine Protein 30 mg/dL Urine Glucose (UA) NEG mg/dL Urine Ketones NEG mg/dL Urine Occult Blood NEG Urine Nitrite NEG Urine Bilirubin NEG Urine Urobilinogen LESS THAN 2.0 MG/DL Urine Leukocyte Esterase SMALL Urine RBC LESS THAN 1 /hpf Urine WBC 3 /hpf Urine Squamous Epithelial 2 /hpf Cells Urine Bacteria RARE /hpf Urine Hyaline Casts 19 /lpf Microscopic Urinalysis Comment CULT NOT INDICATED Total Bilirubin 0.3 MG/DL Aspartate Amino Transf 28 U/L (AST/SGOT) Alanine Aminotransferase 19 U/L (ALT/SGPT) Alkaline Phosphatase 45 U/L Total Protein 8.0 GM/DL Albumin 4.2 GM/DL Lipase 294 U/L Prothrombin Time 10.7 SEC Prothromb Time International 1.0 RATIO Ratio Activated Partial 25.4 SEC Thromboplast Time Free Thyroxine 0.74 NG/DL Free Triiodothyronine (T3) 1.35 PG/ML pg/dL Thyroid Stimulating Hormone 1.190 uIU/ML 3rd Gen White Blood Count 11.1 TH/MM3 Red Blood Count 3.80 MIL/MM3 Hemoglobin 11.0 GM/DL Hematocrit 32.9 % Mean Corpuscular Volume 86.5 FL Mean Corpuscular Hemoglobin 29.0 PG Mean Corpuscular Hemoglobin 33.5 % Concent Red Cell Distribution Width 16.5 % Platelet Count 277 TH/MM3 Mean Platelet Volume 8.2 FL Neutrophils (%) (Auto) 76.4 % Lymphocytes (%) (Auto) 13.3 % Monocytes (%) (Auto) 7.8 % Eosinophils (%) (Auto) 1.8 % Basophils (%) (Auto) 0.7 % Neutrophils # (Auto) 8.5 TH/MM3 Lymphocytes # (Auto) 1.5 TH/MM3 Monocytes # (Auto) 0.9 TH/MM3 Eosinophils # (Auto) 0.2 TH/MM3 Basophils # (Auto) 0.1 TH/MM3 CBC Comment DIFF FINAL Differential Comment Human Chorionic Gonadotropin, LESS THAN 1 Quant MIU/ML Test 03/10/17 03/11/17 03/12/17 06:12 07:20 04:19 Phosphorus Level 4.0 MG/DL Sodium Level 146 MEQ/L Chloride Level 111 MEQ/L Carbon Dioxide Level 20.6 MEQ/L Anion Gap 14 MEQ/L Blood Urea Nitrogen 33 MG/DL Creatinine 1.25 MG/DL Estimat Glomerular Filtration 47 ML/MIN Rate Random Glucose 101 MG/DL Calcium Level 9.0 MG/DL Potassium Level 2.7 MEQ/L Magnesium Level 1.8 MG/DL Objective Remarks GENERAL: This is a chronically ill-appearing female patient, in no apparent distress. SKIN: No rashes, ecchymoses or lesions. Cool and dry. HEAD: Atraumatic. Normocephalic. EYES: No scleral icterus. No injection or drainage. ENT: Nose without bleeding, purulent drainage. Absent dentition in upper front. NECK: Trachea midline. No JVD or lymphadenopathy. CARDIOVASCULAR: Regular rate and rhythm without murmurs, gallops, or rubs. RESPIRATORY: Clear to auscultation. Breath sounds equal bilaterally. No wheezes , rales, or rhonchi. GASTROINTESTINAL: Abdomen soft, nondistended. PEG tube in place. MUSCULOSKELETAL: Extremities without clubbing, cyanosis, or edema. No calf tenderness. NEUROLOGICAL: Awake and alert. Motor and sensory grossly within normal limits. Normal speech. Medications and IVs Current Medications Medications (Trade) Dose Ordered Sig/Osito Route Start Time Stop Time Status Last Admin (NS Flush) 2 ml UNSCH PRN IV FLUSH 03/08/17 22:00 (NS Flush) 2 ml BID IV FLUSH 03/09/17 09:00 03/12/17 08:32 (Zofran Inj) 4 mg Q6H PRN IVP 03/08/17 22:00 03/12/17 10:39 (Narcan Inj) 0.4 mg UNSCH PRN IV 03/08/17 22:00 (Vitamin D3) 20,000 units Q3D PO 03/09/17 09:00 03/12/17 08:32 (Morphine Inj) 2 mg Q6HR PRN IV PUSH 03/09/17 02:00 03/12/17 10:39 (Heparin Inj) 5,000 units Q8HR SQ 03/09/17 06:00 03/12/17 06:04 Metoclopramide HCl 10 mg 10 mg Q8H PRN IV PUSH 03/09/17 08:30 03/11/17 04:01 (NS 1000 ml Inj) 1,000 ml @ 125 mls/hr Q8H IV 03/09/17 22:00 03/12/17 09:55 (Protonix Inj) 40 mg Q24H IV PUSH 03/10/17 21:00 03/11/17 21:08 (Mag-Ox) 400 mg Q12H PEG 03/11/17 11:00 03/11/17 21:08 (K-Phos) 1,000 mg DAILY PEG 03/11/17 09:00 03/12/17 08:32 (Carafate Liq) 1 gm ACHS PEG 03/11/17 11:00 03/12/17 06:04 (K-Lyte Cl Eff) 25 meq TID PEG 03/11/17 09:00 03/12/17 08:32 Diazepam 5 mg 5 mg Q8HR PRN PEG 03/11/17 16:00 03/12/17 08:47 (KCl 20 Meq Premix Inj) 100 ml @ 50 mls/hr Q2H IV 03/12/17 08:15 03/12/17 12:14 03/12/17 08:33 A/P Assessment and Plan 1. Severe Electrolyte derangement chronic issue, probable related to GI malabsorption, her ECG showed sinus rhythm, electrolytes are followed every 3 hours. added her home regimen by mouth and will help with IV replacement as needed today 2.7 and continue replacement also had Hypomagnesemia replaced. 2. Weight loss due to probable Gastroparesis, status post PEG placement, Nicking Machine Operator consult. Ensure. but due to that continue on slow suction not been able to give her food, new KUB showing improvement of probable Ileus. 3. Acute kidney injury Improving continue IV fluids. 4. Anxiety Disorder on Diazepam DVT prophylaxis - Heparin 5000 units subq q8h Discussed Condition With patient and Nurse Miss Mcbride in the room. Discharge Planning Not yet cleared for discharge. Romaine Bowden MD March 12, 2017 11:44
--- NOTE | 2017-03-12 14:30 | HHI.GIFU ---
Subjective Remarks Pt sitting up in bed, asking for food. Says she still has some diffuse abdominal pain but it is improved. Still some nausea but no vomiting. She had BM and now is having liquid stool. (Mari Pérez) Objective Vitals I&O Vital Signs Date Time Temp Pulse Resp B/P Pulse Ox O2 Delivery O2 Flow Rate FiO2 03/12/17 12:00 98.6 80 20 96/65 98 03/12/17 11:24 16 03/12/17 08:28 97 03/12/17 08:00 98.7 77 20 124/78 99 03/12/17 06:00 72 03/12/17 05:00 106 03/12/17 04:00 98.6 74 20 119/77 94 03/12/17 04:00 94 Room Air 03/12/17 04:00 76 03/12/17 03:00 86 03/12/17 02:00 76 03/12/17 01:00 80 03/12/17 00:00 70 03/11/17 23:00 Room Air 03/11/17 23:00 71 03/11/17 23:00 98.4 106 20 111/77 100 03/11/17 22:00 70 03/11/17 21:45 21 03/11/17 21:00 70 03/11/17 20:00 Room Air 03/11/17 20:00 98.1 76 18 113/65 100 03/11/17 20:00 78 03/11/17 19:00 74 03/11/17 18:47 77 03/11/17 17:00 69 03/11/17 16:00 95 03/11/17 16:00 98.5 75 16 108/66 99 03/11/17 15:41 98.5 75 16 108/66 96 03/11/17 15:00 69 I/O 03/11/17 03/11/17 03/11/17 03/12/17 03/12/17 03/12/17 07:00 15:00 23:00 07:00 15:00 23:00 Intake Total 2101 ml 1900 ml 1950 ml Output Total 2900 ml 950 ml 1000 ml Balance -799 ml 950 ml 950 ml Intake Oral 240 ml 800 ml 750 ml IV Total 1861 ml 1100 ml 1200 ml Output Urine Total 600 ml Gastric Drainage Total 1000 ml Emesis 500 ml Drainage Total 1800 ml 950 ml # Voids 6 4 # Bowel Movements 2 4 Laboratory Laboratory Tests Test 03/12/17 04:19 Potassium Level 2.7 Magnesium Level 1.8 Imaging Last Impressions Abdomen X-Ray 03/12/17 0600 Signed Impressions: Service Date/Time: Sunday, March 12, 2017 04:04 - CONCLUSION: Gaseous distention and bowel loops, slightly improved. Clayton Leonard MD Gastrostomy Tube Placement 03/10/17 0000 Signed Impressions: Service Date/Time: Friday, March 10, 2017 11:00 - CONCLUSION: Uncomplicated gastrojejunostomy tube placement as above. Vic Williamson Jr., MD Chest X-Ray 03/08/171921 Signed Impressions: Service Date/Time: Wednesday, March 08, 2017 19:34 - CONCLUSION: No acute disease. Kane Tejeda MD Abdomen/Pelvis CT 03/08/171921 Signed Impressions: Service Date/Time: Wednesday, March 08, 2017 21:28 - CONCLUSION: 1. Abnormal bowel gas pattern which may represent an ileus or gastroenteritis. Obstruction is less likely. 2. Small amount of fluid is again noted in the pelvis. Kane Tejeda MD Physical Exam HEENT: EOMI; normocephalic; atraumatic; no jaundice. CHEST: Chest is clear to auscultation and percussion. CARDIAC: Regular rate and rhythm with no murmur gallop or rubs. ABDOMEN: lower abd softer today, mildly tender; no hepatosplenomegaly; bowel sounds are present in all four quadrants, GJ tube to LIWS EXTREMITIES: No clubbing, cyanosis, or edema. SKIN: Normal; no rash; no jaundice. LOCOMOTIVE LUBRICATING SYSTEMS CLERK: No focal deficits; alert and oriented times three. (Mari Pérez [facility]) Assessment and Plan Plan ASSESSMENT: - weight loss - pt states she "has gastroparesis and cannot absorb nutrients" and has lost 150 lbs in last year and a half. GI consulted for PEG placement - gastroparesis - s/p GJ tube placement by IR. pt unaware of having GES, says diagnosis came from endoscopy. G-J tube to LIWS with significant amount of gastric output but she is on clears - abdominal pain - improving, pt less tender today and belly is soft. +BM. KUB 03-12-17 ---> Gaseous distention and bowel loops, slightly improved. KUB (03/11/17 ) Multiple dilated small bowel loops again seen KUB 03-09-17 --> Persistent abnormally dilated small bowel with little distal gas and colon gas visualized. Differential diagnosis remains ileus versus distal small bowel obstruction. Consider followup imaging to assess for change. CT 03-08-17 --> 1. Abnormal bowel gas pattern which may represent an ileus or gastroenteritis. Obstruction is less likely. 2. Small amount of fluid is again noted in the pelvis. Pt claims to have hx fecal impaction and need for disimpaction. S/p Mag-citrate PLAN: - full liquid - TF per dietary, consult pending - Supportive care This pt seen by myself and DR Pulliam and this note is written on his behalf. (Mari Pérez) Physician Comments Seen and examined, constipation /illeus resolved. Po diet as toleraetd, start TF after nutritional consult. (Sherine Pulliam MD) Mari Pérez March 12, 2017 14:30 Sherine Pulliam MD March 12, 2017 16:33
[2017-03-12] MEDS: PANTOPRAZOLE SODIUM 40 MG VIAL IV PUSH SCH (21:29)
[2017-03-13] VITALS (12 sets, daily range): BP systolic 89–145; BP diastolic 50–84; PULSE 61–82; RESP 14–18; TEMP 97.1–99.4; O2SAT 96–100
[2017-03-13] MEDS: DIAZEPAM 5 MG TAB PEG PRN ×3 (00:53→16:57)
[2017-03-13] MEDS: SODIUM CHLOR 0.9% 1000 ML INJ 1,000 ML IV SCH ×3 (00:55→16:57)
[2017-03-13] MEDS: ONDANSETRON HCL 4 MG/2 ML VIAL IVP PRN (03:21)
[2017-03-13] MEDS: MORPHINE SULFATE 4 MG/ML INJ IV PUSH PRN ×3 (04:44→18:24)
[2017-03-13] MEDS: HEPARIN SODIUM - SQ 10,000 UNITS/ML VIAL SQ SCH ×3 (04:44→21:37)
[2017-03-13] MEDS: SUCRALFATE 1 GM/10 ML CUP PEG SCH ×4 (04:45→21:37)
[2017-03-13] MEDS: SODIUM CHLORIDE 0.9% FLUSH 10 ML FLUSH IV FLUSH SCH ×2 (08:42→21:00)
[2017-03-13] MEDS: POTASSIUM PHOSPHATE MONOBASIC 500 MG TAB PEG SCH (08:43)
[2017-03-13] MEDS: POTASSIUM CHLORIDE 25 MEQ EFFERVESCENT TAB PEG SCH ×3 (08:44→18:00)
--- NOTE | 2017-03-13 09:26 | HHI.PR ---
Subjective Remarks Follow-up for PEG and hypokalemia Patient nurses at the bedside. Patient stated that she is doing "awful" today. She stated that her abdominal pain has worsened. Deny any nausea or vomiting and is tolerating her full liquid diet. Although her J tube was put to suction. Objective Vitals Vital Signs Date Time Temp Pulse Resp B/P Pulse Ox O2 Delivery O2 Flow Rate FiO2 03/13/17 08:00 97.7 70 16 100/57 97 03/13/17 04:00 97.1 70 17 101/50 100 03/13/17 03:25 Room Air 03/13/17 02:16 106/72 03/13/17 02:06 61 03/13/17 01:00 64 03/13/17 00:09 98.4 72 14 89/51 99 03/13/17 00:00 64 03/12/17 23:21 62 03/12/17 23:20 62 03/12/17 22:42 64 03/12/17 22:42 64 03/12/17 21:30 65 03/12/17 21:30 65 03/12/17 20:30 100 Room Air 03/12/17 20:20 98.6 76 14 90/54 100 03/12/17 20:00 75 03/12/17 19:08 21 03/12/17 18:00 58 03/12/17 17:00 60 03/12/17 16:48 18 03/12/17 16:00 78 03/12/17 16:00 98.9 68 20 100/66 99 03/12/17 15:00 70 03/12/17 14:00 76 03/12/17 13:00 74 03/12/17 12:00 76 03/12/17 12:00 98.6 80 20 96/65 98 03/12/17 11:00 86 03/12/17 10:00 86 I/O 03/12/17 03/12/17 03/12/17 03/13/17 03/13/17 03/13/17 06:59 14:59 22:59 06:59 14:59 22:59 Intake Total 1950 ml 2000 ml 478 ml Output Total 1000 ml 2 ml 100 ml Balance 950 ml 1998 ml 378 ml Intake Oral 750 ml 1200 ml 240 ml IV Total 1200 ml 800 ml 238 ml Stool Total 2 ml Gastric Drainage Total 1000 ml 100 ml # Voids 4 5 2 # Bowel Movements 4 Result Diagram: 03/09/17 0445 03/12/17 1540 Objective Remarks GENERAL: in NAD and sitting comfortable in bed. SKIN: Warm and dry. HEAD: Normocephalic. EYES: No scleral icterus. No injection or drainage. NECK: Supple, trachea midline. No JVD or lymphadenopathy. CARDIOVASCULAR: Regular rate and rhythm without murmurs, gallops, or rubs. RESPIRATORY: Breath sounds equal bilaterally. No accessory muscle use. GASTROINTESTINAL: Abdomen soft, + diffuse TTP but no peritoneal signs. When I' m palpating she stated that she is in pain but shows no grimaces. Medications and IVs Current Medications Sodium Chloride (NS Flush) 2 ml UNSCH PRN IV FLUSH FLUSH AFTER USING IV ACCESS ; Start 03/08/17 at 19:30; Stop 03/08/17 at 22:15; Status DC Sodium Chloride 2 ml 2 ml UNSCH PRN IVF FLUSH AFTER USING IV ACCESS; Start 03/08 at 21:00; Stop 03/08/17 at 22:15; Status DC Potassium Chloride/Sodium Chloride (NS + KCl 40 Meq Inj) 1,000 ml @ 100 mls/hr Q10H IV Last administered on 03/09/17 09:16; Start 03/08/17 at 21:45; Stop at 13:42; Status DC Ondansetron HCl (Zofran Inj) 4 mg ONCE ONCE IV PUSH Last administered on 22:13; Start 03/08/17 at 22:00; Stop 03/08/17 at 22:01; Status DC Morphine Sulfate (Morphine Inj) 2 mg ONCE ONCE IV PUSH Last administered on 22:14; Start 03/08/17 at 22:00; Stop 03/08/17 at 22:01; Status DC Sodium Chloride (NS Flush) 2 ml UNSCH PRN IV FLUSH FLUSH AFTER USING IV ACCESS ; Start 03/08/17 at 22:00 Sodium Chloride (NS Flush) 2 ml BID IV FLUSH Last administered on 03/12/17 21: 30; Start 03/09/17 at 09:00 Ondansetron HCl (Zofran Inj) 4 mg Q6H PRN IVP NAUSEA OR VOMITING Last administered on 03/13/17 03:21; Start 03/08/17 at 22:00 Naloxone HCl (Narcan Inj) 0.4 mg UNSCH PRN IV SEE LABEL COMMENTS; Start at 22:00 Potassium Chloride 40 meq 40 meq ONCE ONCE PO Last administered on 03/08/17 22 :28; Start 03/08/17 at 22:15; Stop 03/08/17 at 22:16; Status DC Potassium Chloride (KCl 20 Meq Premix Inj) 100 ml @ 50 mls/hr Q2H IV Last administered on 03/09/17 00:15; Start 03/08/17 at 22:15; Stop 03/09/17 at 02:14; Status DC Cholecalciferol (Vitamin D3) 20,000 units Q3D PO Last administered on 03/12/17 08:32; Start 03/09/17 at 09:00 Pantoprazole Sodium (Protonix) 40 mg DAILY@06 PO ; Start 03/10/17 at 06:00; Stop 03/10/17 at 20:46; Status DC Sucralfate (Carafate Liq) 1 gm ACHS PO Last administered on 03/09/17 10:58; Start 03/09/17 at 07:00; Stop 03/11/17 at 08:15; Status DC Pantoprazole Sodium (Protonix Inj) 80 mg ONCE ONCE IV PUSH ; Start 03/09/17 at 02:00; Stop 03/09/17 at 02:01; Status Cancel Morphine Sulfate 2 mg 2 mg Q6HR PRN IV PUSH PAIN >5 Last administered on 04:44; Start 03/09/17 at 02:00 Pantoprazole Sodium/Sodium Chloride (Protonix Inj/NS Inj) 35 ml @ 420 mls/hr ONCE ONCE IV Last administered on 03/09/17 02:59; Start 03/09/17 at 02:15; Stop 03/09/17 at 02:19; Status DC Potassium Chloride 40 meq 40 meq ONCE ONCE PO Last administered on 03/09/17 03 :00; Start 03/09/17 at 02:30; Stop 03/09/17 at 02:31; Status DC Potassium Chloride (KCl 20 Meq Premix Inj) 100 ml @ 50 mls/hr Q2H IV Last administered on 03/09/17 06:12; Start 03/09/17 at 02:30; Stop 03/09/17 at 06:29; Status DC Heparin Sodium (Porcine) 5000 units 5,000 units Q8HR SQ Last administered on 04:44; Start 03/09/17 at 06:00 Potassium Chloride (KCl 20 Meq Premix Inj) 100 ml @ 50 mls/hr Q2H IV Last administered on 03/09/17 10:58; Start 03/09/17 at 08:30; Stop 03/09/17 at 12:29; Status DC Potassium Chloride (KCl) 40 meq ONCE ONCE PO Last administered on 03/09/17 09: 15; Start 03/09/17 at 08:30; Stop 03/09/17 at 09:01; Status DC Metoclopramide HCl (Reglan Inj) 10 mg Q8H PRN IV PUSH nausea Last administered on 03/11/17 04:01; Start 03/09/17 at 08:30 Potassium Chloride (KCl) 40 meq TID PO ; Start 03/09/17 at 18:00; Stop 03/11/17 at 08:21; Status DC Potassium Phosphate (K-Phos) 1,000 mg DAILY PO Last administered on 03/09/17 17 :11; Start 03/09/17 at 13:15; Stop 03/11/17 at 08:15; Status DC Magnesium Oxide 400 mg 400 mg Q12HR PO ; Start 03/09/17 at 21:00; Stop 03/11/17 at 08:15; Status DC Sodium Chloride 1,000 ml @ 125 mls/hr Q8H IV ; Start 03/09/17 at 16:15; Stop 03/09/17 at 21:55; Status DC Sodium Chloride 500 ml @ 500 mls/hr BOLUS ONCE IV ; Start 03/09/17 at 16:15; Stop 03/09/17 at 17:14; Status DC Potassium Chloride 100 ml @ 100 mls/hr Q1H IV Last administered on 03/09/17 21 :52; Start 03/09/17 at 17:00; Stop 03/09/17 at 19:59; Status DC Potassium Chloride 100 ml @ 50 mls/hr Q2H IV ; Start 03/09/17 at 21:30; Stop 03/09/17 at 21:30; Status DC Sodium Chloride 1,000 ml @ 125 mls/hr Q8H IV Last administered on 03/13/17 08: 44; Start 03/09/17 at 22:00 Potassium Chloride 100 ml @ 50 mls/hr Q2H IV Last administered on 03/10/17 10: 43; Start 03/10/17 at 09:00; Stop 03/10/17 at 12:59; Status DC Levofloxacin/ Dextrose (Levaquin 500 Mg Premix Inj) 100 ml @ As Directed STK- MED ONCE IV ; Start 03/10/17 at 11:02; Stop 03/10/17 at 11:03; Status DC Diphenhydramine HCl (Benadryl Inj) 50 mg STK-MED ONCE .ROUTE ; Start 03/10/17 at 11:25; Stop 03/10/17 at 11:26; Status DC Glucagon (Glucagon Inj) 1 mg STK-MED ONCE .ROUTE Last administered on 03/10/17 11:33; Start 03/10/17 at 11:33; Stop 03/10/17 at 11:34; Status DC Iohexol (Omnipaque 300 Inj) 40 ml STK-MED ONCE G-TUBE ; Start 03/10/17 at 12:26; Stop 03/10/17 at 12:27; Status DC Iohexol (Omnipaque 350 Inj) 40 ml STK-MED ONCE G-TUBE Last administered on 12:30; Start 03/10/17 at 12:30; Stop 03/10/17 at 12:31; Status DC Miscellaneous Information ALL NURSING DEPARTME... UNSCH PRN .XX SEE LABEL COMMENTS; Start 03/10/17 at 12:35; Stop 03/11/17 at 12:34; Status DC Morphine Sulfate (*morphine INJ PERIprocedure ONLY) 8 mg STK-MED ONCE .ROUTE Last administered on 03/10/17 13:01; Start 03/10/17 at 13:01; Stop 03/10/17 at 13: 02; Status DC Fentanyl Citrate (fentaNYL INJ) 250 mcg STK-MED ONCE .ROUTE ; Start 03/10/17 at 13:11; Stop 03/10/17 at 13:12; Status DC Morphine Sulfate (Morphine Inj) 4 mg STK-MED ONCE .ROUTE ; Start 03/10/17 at 13: 12; Stop 03/10/17 at 13:13; Status DC Magnesium Citrate (Citroma Liq) 300 ml ONCE ONCE PO Last administered on 15:24; Start 03/10/17 at 15:00; Stop 03/10/17 at 15:08; Status DC Diazepam (Valium) 5 mg Q12HR PRN PEG ANXIETY Last administered on 03/11/17 08: 24; Start 03/10/17 at 15:30; Stop 03/11/17 at 15:57; Status DC Pantoprazole Sodium 40 mg 40 mg Q24H IV PUSH Last administered on 03/12/17 21: 29; Start 03/10/17 at 21:00 Potassium Chloride (KCl 20 Meq Premix Inj) 100 ml @ 50 mls/hr Q2H IV Last administered on 03/11/17 01:00; Start 03/10/17 at 21:00; Stop 03/11/17 at 02:59; Status DC Lorazepam 0.5 mg 0.5 mg ONCE ONCE IV PUSH Last administered on 03/10/17 21:36 ; Start 03/10/17 at 21:15; Stop 03/10/17 at 21:24; Status DC Potassium Chloride (KCl 20 Meq Premix Inj) 100 ml @ 50 mls/hr Q2H IV Last administered on 03/11/17 10:15; Start 03/11/17 at 08:15; Stop 03/11/17 at 12:14; Status DC Magnesium Oxide (Mag-Ox) 400 mg Q12H PEG Last administered on 03/12/17 22:17; Start 03/11/17 at 11:00 Potassium Phosphate (K-Phos) 1,000 mg DAILY PEG Last administered on 03/13/17 08:43; Start 03/11/17 at 09:00 Sucralfate (Carafate Liq) 1 gm ACHS PEG Last administered on 03/13/17 04:45; Start 03/11/17 at 11:00 Potassium Bicarb/ Potassium Chloride (K-Lyte Cl Eff) 25 meq TID PEG Last administered on 03/13/17 08:44; Start 03/11/17 at 09:00 Diazepam (Valium) 5 mg Q8HR PRN PEG ANXIETY Last administered on 03/13/17 08:43 ; Start 03/11/17 at 16:00 Potassium Chloride 40 meq 40 meq ONCE ONCE PO Last administered on 03/12/17 06 :43; Start 03/12/17 at 06:30; Stop 03/12/17 at 06:31; Status DC Potassium Chloride 100 ml @ 50 mls/hr Q2H IV Last administered on 03/12/17 08: 30; Start 03/12/17 at 06:30; Stop 03/12/17 at 10:29; Status DC Potassium Chloride 100 ml @ 50 mls/hr Q2H IV Last administered on 03/12/17 10: 15; Start 03/12/17 at 08:15; Stop 03/12/17 at 12:14; Status DC Magnesium Sulfate/ Dextrose (Magnesium Sulfate 1 Gm Premix) 100 ml @ 100 mls/ hr Q1H IV Last administered on 03/12/17 09:15; Start 03/12/17 at 08:15; Stop 03/12/17 at 10:14; Status DC Propofol (Diprivan 200 Mg/20 ml Inj) 20 mg STK-MED ONCE IV ; Start 03/10/17 at 08:32; Stop 03/13/17 at 08:32; Status DC Ondansetron HCl (Zofran Inj) 4 mg STK-MED ONCE IV PUSH ; Start 03/10/17 at 08:32 ; Stop 03/13/17 at 08:32; Status DC Lactated Ringer's (Lr 1000 ml Inj) 1,000 ml STK-MED ONCE IV ; Start 03/10/17 at 08:32; Stop 03/13/17 at 08:32; Status DC A/P Problem List: (1) Hypokalemia ICD Code: E87.6 Status: Resolved Assessment and Plan Chronic hypokalemia -Patient was worked up as outpatient per diagnosis with patient. -No events over telemetry. -Patient able to tolerate by mouth intake. She is being replenished with potassium. -Magnesium is 1.8. Weight loss secondary to questionable gastroparesis status post PEG -Nutrition consulted and recommended vital 1.5 started at 20 cc/h decreased 10 mL's every 4 hours as tolerated to a goal of 60 cc/h. -Unsure why patient is on a full liquid diet along with suction. Nurse told to call GI to clarify orders. Acute renal failure -Secondary to dehydration. -Will need a follow-up creatinine today. -Continue with IV fluids. -Avoid nephrotoxins. Anxiety Disorder -on Diazepam DVT prophylaxis - Heparin 5000 units subq q8h Discharge Planning Once patient able to tolerate tube feeds and is at goal with normalization of her electrolytes and improvement of her kidney function can be discharged to home. Annette Marcelo MD March 13, 2017 09:26
[2017-03-13] MEDS: MAGNESIUM OXIDE 400 MG TAB PEG SCH ×2 (12:02→21:38)
[2017-03-13 13:07] LABS: POTASSIUM 2.8 MEQ/L (3.5-5.1)
--- NOTE | 2017-03-13 15:10 | HHI.GIFU ---
Subjective Remarks Pt resting comfortably in bed. Gtube currently clamped and pt denies n/v and says she is really hungry and wants to eat PO diet, says she feels fine. Mild abd pain she attributes to her GJ insertion and her "organs shifting." No BM today. (Mari Pérez) Objective Vitals I&O Vital Signs Date Time Temp Pulse Resp B/P Pulse Ox O2 Delivery O2 Flow Rate FiO2 03/13/17 12:00 98.8 66 17 99/57 98 03/13/17 11:12 97 03/13/17 08:00 97.7 70 16 100/57 97 03/13/17 04:00 97.1 70 17 101/50 100 03/13/17 03:25 Room Air 03/13/17 02:16 106/72 03/13/17 02:06 61 03/13/17 01:00 64 03/13/17 00:09 98.4 72 14 89/51 99 03/13/17 00:00 64 03/12/17 23:21 62 03/12/17 23:20 62 03/12/17 22:42 64 03/12/17 22:42 64 03/12/17 21:30 65 03/12/17 21:30 65 03/12/17 20:30 100 Room Air 03/12/17 20:20 98.6 76 14 90/54 100 03/12/17 20:00 75 03/12/17 19:08 21 03/12/17 18:00 58 03/12/17 17:00 60 03/12/17 16:48 18 03/12/17 16:00 78 03/12/17 16:00 98.9 68 20 100/66 99 03/12/17 15:00 70 I/O 03/12/17 03/12/17 03/12/17 03/13/17 03/13/17 03/13/17 06:59 14:59 22:59 06:59 14:59 22:59 Intake Total 1950 ml 2000 ml 478 ml Output Total 1000 ml 2 ml 100 ml Balance 950 ml 1998 ml 378 ml Intake Oral 750 ml 1200 ml 240 ml IV Total 1200 ml 800 ml 238 ml Stool Total 2 ml Gastric Drainage Total 1000 ml 100 ml # Voids 4 5 2 # Bowel Movements 4 Laboratory Laboratory Tests Test 03/12/17 03/13/17 15:40 11:00 Potassium Level 3.1 2.8 Sodium Level 143 Chloride Level 109 Carbon Dioxide Level 27.0 Anion Gap 7 Blood Urea Nitrogen 11 Creatinine 0.99 Estimat Glomerular Filtration 62 Rate Random Glucose 104 Calcium Level 8.3 Imaging Last Impressions Abdomen X-Ray 03/12/17 0600 Signed Impressions: Service Date/Time: Sunday, March 12, 2017 04:04 - CONCLUSION: Gaseous distention and bowel loops, slightly improved. Clayton Leonard MD Gastrostomy Tube Placement 03/10/17 0000 Signed Impressions: Service Date/Time: Friday, March 10, 2017 11:00 - CONCLUSION: Uncomplicated gastrojejunostomy tube placement as above. Vic Williamson Jr., MD Chest X-Ray 03/08/171921 Signed Impressions: Service Date/Time: Wednesday, March 08, 2017 19:34 - CONCLUSION: No acute disease. Kane Tejeda MD Abdomen/Pelvis CT 03/08/171921 Signed Impressions: Service Date/Time: Wednesday, March 08, 2017 21:28 - CONCLUSION: 1. Abnormal bowel gas pattern which may represent an ileus or gastroenteritis. Obstruction is less likely. 2. Small amount of fluid is again noted in the pelvis. Kane Tejeda MD Physical Exam HEENT: EOMI; normocephalic; atraumatic; no jaundice. CHEST: Chest is clear to auscultation and percussion. CARDIAC: Regular rate and rhythm with no murmur gallop or rubs. ABDOMEN: lower abd softer today, mildly tender; no hepatosplenomegaly; bowel sounds are present in all four quadrants, GJ tube to LIWS EXTREMITIES: No clubbing, cyanosis, or edema. SKIN: Normal; no rash; no jaundice. PROFESSIONAL BASS FISHER: No focal deficits; alert and oriented times three. (Mari Pérez [facility]) Assessment and Plan Plan ASSESSMENT: - weight loss - pt states she "has gastroparesis and cannot absorb nutrients" and has lost 150 lbs in last year and a half. GI consulted for PEG placement - gastroparesis - s/p GJ tube placement by IR. pt unaware of having GES, says diagnosis came from endoscopy. G-J tube is currently clamped and pt feels fine. Okay for pt to have PO if she tolerates. If she has n/v, can put G tube to drainage and have TF only. Nutrition Recommends Vital 1.5 via J-tube, start at 20 ml/hr, increase as tolerated 10 mls q 4 hrs until goal rate of 60 ml/hr is reached. - abdominal pain - improving, pt less tender today and belly is soft. +BM . KUB 03-12-17 ---> Gaseous distention and bowel loops, slightly improved. KUB (03/11/17) Multiple dilated small bowel loops again seen KUB 03-09-17 --> Persistent abnormally dilated small bowel with little distal gas and colon gas visualized. Differential diagnosis remains ileus versus distal small bowel obstruction. Consider followup imaging to assess for change. CT 03-08-17 --> 1. Abnormal bowel gas pattern which may represent an ileus or gastroenteritis. Obstruction is less likely. 2. Small amount of fluid is again noted in the pelvis. Pt claims to have hx fecal impaction and need for disimpaction. S/p Mag-citrate PLAN: - low residue diet if pt tolerates, if n/v returns put G-tube to drainage and TF only - TF per dietary: Vital 1.5 via J-tube - Supportive care This pt seen by myself and DR Charles and this note is written on her behalf. ( Mari Pérez) Mari Pérez March 13, 2017 15:10 Aliyah Charles MD March 13, 2017 21:30
[2017-03-13] MEDS: POTASSIUM CHLOR 10 MEQ PREMIX 100 ML IV SCH ×3 (15:43→18:23)
[2017-03-13] MEDS: PANTOPRAZOLE SODIUM 40 MG VIAL IV PUSH SCH (21:37)
[2017-03-14] MEDS: SODIUM CHLOR 0.9% 1000 ML INJ 1,000 ML IV SCH ×3 (00:07→17:11)
[2017-03-14] MEDS: METOCLOPRAMIDE HCL 10 MG/2 ML VIAL IV PUSH PRN (00:07)
[2017-03-14] MEDS: MORPHINE SULFATE 4 MG/ML INJ IV PUSH PRN ×4 (00:31→20:29)
[2017-03-14] MEDS: DIAZEPAM 5 MG TAB PEG PRN ×3 (01:01→17:10)
[2017-03-14 04:00] VITALS: BP 108/67; PULSE 70; RESP 16; TEMP 98.1; O2SAT 97
[2017-03-14] MEDS: SUCRALFATE 1 GM/10 ML CUP PEG SCH ×4 (05:08→20:28)
[2017-03-14] MEDS: HEPARIN SODIUM - SQ 10,000 UNITS/ML VIAL SQ SCH ×3 (05:08→20:29)
[2017-03-14] MEDS: POTASSIUM CHLORIDE 25 MEQ EFFERVESCENT TAB PEG SCH ×3 (07:48→17:11)
[2017-03-14] MEDS: POTASSIUM PHOSPHATE MONOBASIC 500 MG TAB PEG SCH (07:48)
[2017-03-14] MEDS: SODIUM CHLORIDE 0.9% FLUSH 10 ML FLUSH IV FLUSH SCH ×2 (07:52→20:36)
[2017-03-14 08:00] VITALS: BP 119/71; PULSE 80; RESP 16; TEMP 99.5; O2SAT 96
[2017-03-14 11:58] LABS: MAGNESIUM 1.3 MG/DL (1.5-2.5)
[2017-03-14 12:00] VITALS: BP 107/67; PULSE 74; RESP 17; TEMP 98.3; O2SAT 97
[2017-03-14] MEDS: MAGNESIUM OXIDE 400 MG TAB PEG SCH ×2 (12:12→20:36)
[2017-03-14] MEDS: MAGNESIUM SULFATE 1 GM PREMIX 100 ML IV SCH ×2 (14:09→14:23)
[2017-03-14 16:00] VITALS: BP 98/50; PULSE 71; RESP 18; TEMP 98.1; O2SAT 99
[2017-03-14] MEDS ORDERED: POLYETHYLENE GLYCOL 17 GM PKG G-TUBE PRN (16:00)
--- NOTE | 2017-03-14 16:01 | HHI.GIFU ---
Subjective Remarks Pt sitting in bed, in no apparent distress. She does c/o incisional pain and abdominal discomfort that she is unable to further qualify. Denies n/v, says she hasn't had BM in 2d but that last one was loose. (Mari Pérez) Objective Vitals I&O Vital Signs Date Time Temp Pulse Resp B/P Pulse Ox O2 Delivery O2 Flow Rate FiO2 03/14/17 12:00 98.3 74 17 107/67 97 03/14/17 08:00 99.5 80 16 119/71 96 03/14/17 04:00 98.1 70 16 108/67 97 03/13/17 23:50 99.4 78 16 117/68 97 03/13/17 20:00 78 03/13/17 20:00 Room Air 03/13/17 20:00 98.0 72 18 121/77 96 03/13/17 16:00 98.6 82 17 145/84 97 I/O 03/13/17 03/13/17 03/13/17 03/14/17 03/14/17 03/14/17 07:00 15:00 23:00 07:00 15:00 23:00 Intake Total 478 ml 360 ml 1834 ml 2439 ml 720 ml Output Total 100 ml 1500 ml 800 ml 1010.0 ml 600 ml Balance 378 ml -1140 ml 1034 ml 1429.0 ml 120 ml Intake Oral 240 ml 360 ml 480 ml 380 ml 720 ml IV Total 238 ml 1354 ml 1881 ml Tube Feeding 148 ml Other 30 ml Output Urine Total 1500 ml 800 ml 1000 ml 600 ml Gastric Drainage Total 100 ml Tube Feeding Residual Discard 10.0 ml # Voids 2 # Bowel Movements 0 0 Laboratory Laboratory Tests Test 03/14/17 11:28 Potassium Level 3.0 Magnesium Level 1.3 Physical Exam HEENT: EOMI; normocephalic; atraumatic; no jaundice. CHEST: Chest is clear to auscultation and percussion. CARDIAC: Regular rate and rhythm with no murmur gallop or rubs. ABDOMEN: lower abd soft, mildly tender; no hepatosplenomegaly; bowel sounds are present in all four quadrants, GJ dressing clean. EXTREMITIES: No clubbing, cyanosis, or edema. SKIN: Normal; no rash; no jaundice. USER INTERFACE ARTIST: No focal deficits; alert and oriented times three. (Mari Pérez) Assessment and Plan Plan ASSESSMENT: - weight loss - pt states she "has gastroparesis and cannot absorb nutrients" and has lost 150 lbs in last year and a half. GI consulted for PEG placement - gastroparesis - s/p GJ tube placement by IR. pt unaware of having GES, says diagnosis came from endoscopy. G tube is currently clamped pt receiving TF @ 30cc/hr. Pt c/o abd discomfort with PO & TF so will make NPO with just TF. Nutrition Recommends Vital 1.5 via J-tube, start at 20 ml/hr, increase as tolerated 10 mls q 4 hrs until goal rate of 60 ml/hr is reached. - abdominal pain - pt c/o incisional pain +BM 03-12-17. Miralax prn. KUB 03-12-17 ---> Gaseous distention and bowel loops, slightly improved. KUB (03/11/17) Multiple dilated small bowel loops again seen KUB 03-09-17 --> Persistent abnormally dilated small bowel with little distal gas and colon gas visualized. Differential diagnosis remains ileus versus distal small bowel obstruction. Consider followup imaging to assess for change. CT 03-08-17 --> 1. Abnormal bowel gas pattern which may represent an ileus or gastroenteritis. Obstruction is less likely. 2. Small amount of fluid is again noted in the pelvis. Pt claims to have hx fecal impaction and need for disimpaction. PLAN: - NPO w/ TF - miralax prn constipation - TF per dietary: Vital 1.5 via J-tube - Supportive care This pt seen by myself and DR Charles and this note is written on her behalf. ( Mari Pérez) Mari Pérez March 14, 2017 16:00 Aliyah Charles MD March 25, 2017 09:03
--- NOTE | 2017-03-14 16:32 | HHI.PR ---
Subjective Remarks Patient complaining about pain at her PEG site. She stated that she stalling by mouth intake. Patient is asking for a PICC line. Otherwise denies any chest pain, shortness of breathing or palpitations. Objective Vitals Vital Signs Date Time Temp Pulse Resp B/P Pulse Ox O2 Delivery O2 Flow Rate FiO2 03/14/17 12:00 98.3 74 17 107/67 97 03/14/17 08:00 99.5 80 16 119/71 96 03/14/17 04:00 98.1 70 16 108/67 97 03/13/17 23:50 99.4 78 16 117/68 97 03/13/17 20:00 78 03/13/17 20:00 Room Air 03/13/17 20:00 98.0 72 18 121/77 96 I/O 03/13/17 03/13/17 03/13/17 03/14/17 03/14/17 03/14/17 07:00 15:00 23:00 07:00 15:00 23:00 Intake Total 478 ml 360 ml 1834 ml 2439 ml 720 ml Output Total 100 ml 1500 ml 800 ml 1010.0 ml 600 ml Balance 378 ml -1140 ml 1034 ml 1429.0 ml 120 ml Intake Oral 240 ml 360 ml 480 ml 380 ml 720 ml IV Total 238 ml 1354 ml 1881 ml Tube Feeding 148 ml Other 30 ml Output Urine Total 1500 ml 800 ml 1000 ml 600 ml Gastric Drainage Total 100 ml Tube Feeding Residual Discard 10.0 ml # Voids 2 # Bowel Movements 0 0 Result Diagram: 03/14/17 1128 Objective Remarks GENERAL: in NAD and sitting comfortable in bed. SKIN: Warm and dry. HEAD: Normocephalic. EYES: No scleral icterus. No injection or drainage. NECK: Supple, trachea midline. No JVD or lymphadenopathy. CARDIOVASCULAR: Regular rate and rhythm without murmurs, gallops, or rubs. RESPIRATORY: Breath sounds equal bilaterally. No accessory muscle use. GASTROINTESTINAL: Abdomen soft, + diffuse TTP but no peritoneal signs. When I' m palpating she stated that she is in pain but shows no grimaces. GJ tube is in place. No infection noted. Medications and IVs Current Medications Sodium Chloride (NS Flush) 2 ml UNSCH PRN IV FLUSH FLUSH AFTER USING IV ACCESS ; Start 03/08/17 at 19:30; Stop 03/08/17 at 22:15; Status DC Sodium Chloride 2 ml 2 ml UNSCH PRN IVF FLUSH AFTER USING IV ACCESS; Start 03/08 at 21:00; Stop 03/08/17 at 22:15; Status DC Potassium Chloride/Sodium Chloride (NS + KCl 40 Meq Inj) 1,000 ml @ 100 mls/hr Q10H IV Last administered on 03/09/17 09:16; Start 03/08/17 at 21:45; Stop at 13:42; Status DC Ondansetron HCl (Zofran Inj) 4 mg ONCE ONCE IV PUSH Last administered on 22:13; Start 03/08/17 at 22:00; Stop 03/08/17 at 22:01; Status DC Morphine Sulfate (Morphine Inj) 2 mg ONCE ONCE IV PUSH Last administered on 22:14; Start 03/08/17 at 22:00; Stop 03/08/17 at 22:01; Status DC Sodium Chloride (NS Flush) 2 ml UNSCH PRN IV FLUSH FLUSH AFTER USING IV ACCESS ; Start 03/08/17 at 22:00 Sodium Chloride (NS Flush) 2 ml BID IV FLUSH Last administered on 03/14/17 07: 52; Start 03/09/17 at 09:00 Ondansetron HCl (Zofran Inj) 4 mg Q6H PRN IVP NAUSEA OR VOMITING Last administered on 03/13/17 03:21; Start 03/08/17 at 22:00 Naloxone HCl (Narcan Inj) 0.4 mg UNSCH PRN IV SEE LABEL COMMENTS; Start at 22:00 Potassium Chloride 40 meq 40 meq ONCE ONCE PO Last administered on 03/08/17 22 :28; Start 03/08/17 at 22:15; Stop 03/08/17 at 22:16; Status DC Potassium Chloride (KCl 20 Meq Premix Inj) 100 ml @ 50 mls/hr Q2H IV Last administered on 03/09/17 00:15; Start 03/08/17 at 22:15; Stop 03/09/17 at 02:14; Status DC Cholecalciferol (Vitamin D3) 20,000 units Q3D PO Last administered on 03/12/17 08:32; Start 03/09/17 at 09:00 Pantoprazole Sodium (Protonix) 40 mg DAILY@06 PO ; Start 03/10/17 at 06:00; Stop 03/10/17 at 20:46; Status DC Sucralfate (Carafate Liq) 1 gm ACHS PO Last administered on 03/09/17 10:58; Start 03/09/17 at 07:00; Stop 03/11/17 at 08:15; Status DC Pantoprazole Sodium (Protonix Inj) 80 mg ONCE ONCE IV PUSH ; Start 03/09/17 at 02:00; Stop 03/09/17 at 02:01; Status Cancel Morphine Sulfate 2 mg 2 mg Q6HR PRN IV PUSH PAIN >5 Last administered on 14:09; Start 03/09/17 at 02:00 Pantoprazole Sodium/Sodium Chloride (Protonix Inj/NS Inj) 35 ml @ 420 mls/hr ONCE ONCE IV Last administered on 03/09/17 02:59; Start 03/09/17 at 02:15; Stop 03/09/17 at 02:19; Status DC Potassium Chloride 40 meq 40 meq ONCE ONCE PO Last administered on 03/09/17 03 :00; Start 03/09/17 at 02:30; Stop 03/09/17 at 02:31; Status DC Potassium Chloride (KCl 20 Meq Premix Inj) 100 ml @ 50 mls/hr Q2H IV Last administered on 03/09/17 06:12; Start 03/09/17 at 02:30; Stop 03/09/17 at 06:29; Status DC Heparin Sodium (Porcine) 5000 units 5,000 units Q8HR SQ Last administered on 12:13; Start 03/09/17 at 06:00 Potassium Chloride (KCl 20 Meq Premix Inj) 100 ml @ 50 mls/hr Q2H IV Last administered on 03/09/17 10:58; Start 03/09/17 at 08:30; Stop 03/09/17 at 12:29; Status DC Potassium Chloride (KCl) 40 meq ONCE ONCE PO Last administered on 03/09/17 09: 15; Start 03/09/17 at 08:30; Stop 03/09/17 at 09:01; Status DC Metoclopramide HCl (Reglan Inj) 10 mg Q8H PRN IV PUSH nausea Last administered on 03/14/17 00:07; Start 03/09/17 at 08:30 Potassium Chloride (KCl) 40 meq TID PO ; Start 03/09/17 at 18:00; Stop 03/11/17 at 08:21; Status DC Potassium Phosphate (K-Phos) 1,000 mg DAILY PO Last administered on 03/09/17 17 :11; Start 03/09/17 at 13:15; Stop 03/11/17 at 08:15; Status DC Magnesium Oxide 400 mg 400 mg Q12HR PO ; Start 03/09/17 at 21:00; Stop 03/11/17 at 08:15; Status DC Sodium Chloride 1,000 ml @ 125 mls/hr Q8H IV ; Start 03/09/17 at 16:15; Stop 03/09/17 at 21:55; Status DC Sodium Chloride 500 ml @ 500 mls/hr BOLUS ONCE IV ; Start 03/09/17 at 16:15; Stop 03/09/17 at 17:14; Status DC Potassium Chloride 100 ml @ 100 mls/hr Q1H IV Last administered on 03/09/17 21 :52; Start 03/09/17 at 17:00; Stop 03/09/17 at 19:59; Status DC Potassium Chloride 100 ml @ 50 mls/hr Q2H IV ; Start 03/09/17 at 21:30; Stop 03/09/17 at 21:30; Status DC Sodium Chloride 1,000 ml @ 125 mls/hr Q8H IV Last administered on 03/14/17 00: 07; Start 03/09/17 at 22:00 Potassium Chloride 100 ml @ 50 mls/hr Q2H IV Last administered on 03/10/17 10: 43; Start 03/10/17 at 09:00; Stop 03/10/17 at 12:59; Status DC Levofloxacin/ Dextrose (Levaquin 500 Mg Premix Inj) 100 ml @ As Directed STK- MED ONCE IV ; Start 03/10/17 at 11:02; Stop 03/10/17 at 11:03; Status DC Diphenhydramine HCl (Benadryl Inj) 50 mg STK-MED ONCE .ROUTE ; Start 03/10/17 at 11:25; Stop 03/10/17 at 11:26; Status DC Glucagon (Glucagon Inj) 1 mg STK-MED ONCE .ROUTE Last administered on 03/10/17 11:33; Start 03/10/17 at 11:33; Stop 03/10/17 at 11:34; Status DC Iohexol (Omnipaque 300 Inj) 40 ml STK-MED ONCE G-TUBE ; Start 03/10/17 at 12:26; Stop 03/10/17 at 12:27; Status DC Iohexol (Omnipaque 350 Inj) 40 ml STK-MED ONCE G-TUBE Last administered on 12:30; Start 03/10/17 at 12:30; Stop 03/10/17 at 12:31; Status DC Miscellaneous Information ALL NURSING DEPARTME... UNSCH PRN .XX SEE LABEL COMMENTS; Start 03/10/17 at 12:35; Stop 03/11/17 at 12:34; Status DC Morphine Sulfate (*morphine INJ PERIprocedure ONLY) 8 mg STK-MED ONCE .ROUTE Last administered on 03/10/17 13:01; Start 03/10/17 at 13:01; Stop 03/10/17 at 13: 02; Status DC Fentanyl Citrate (fentaNYL INJ) 250 mcg STK-MED ONCE .ROUTE ; Start 03/10/17 at 13:11; Stop 03/10/17 at 13:12; Status DC Morphine Sulfate (Morphine Inj) 4 mg STK-MED ONCE .ROUTE ; Start 03/10/17 at 13: 12; Stop 03/10/17 at 13:13; Status DC Magnesium Citrate (Citroma Liq) 300 ml ONCE ONCE PO Last administered on 15:24; Start 03/10/17 at 15:00; Stop 03/10/17 at 15:08; Status DC Diazepam (Valium) 5 mg Q12HR PRN PEG ANXIETY Last administered on 03/11/17 08: 24; Start 03/10/17 at 15:30; Stop 03/11/17 at 15:57; Status DC Pantoprazole Sodium 40 mg 40 mg Q24H IV PUSH Last administered on 03/13/17 21: 37; Start 03/10/17 at 21:00 Potassium Chloride (KCl 20 Meq Premix Inj) 100 ml @ 50 mls/hr Q2H IV Last administered on 03/11/17 01:00; Start 03/10/17 at 21:00; Stop 03/11/17 at 02:59; Status DC Lorazepam 0.5 mg 0.5 mg ONCE ONCE IV PUSH Last administered on 03/10/17 21:36 ; Start 03/10/17 at 21:15; Stop 03/10/17 at 21:24; Status DC Potassium Chloride (KCl 20 Meq Premix Inj) 100 ml @ 50 mls/hr Q2H IV Last administered on 03/11/17 10:15; Start 03/11/17 at 08:15; Stop 03/11/17 at 12:14; Status DC Magnesium Oxide (Mag-Ox) 400 mg Q12H PEG Last administered on 03/14/17 12:12; Start 03/11/17 at 11:00 Potassium Phosphate (K-Phos) 1,000 mg DAILY PEG Last administered on 03/14/17 07:48; Start 03/11/17 at 09:00 Sucralfate (Carafate Liq) 1 gm ACHS PEG Last administered on 03/14/17 12:12; Start 03/11/17 at 11:00 Potassium Bicarb/ Potassium Chloride (K-Lyte Cl Eff) 25 meq TID PEG Last administered on 03/14/17 12:12; Start 03/11/17 at 09:00 Diazepam (Valium) 5 mg Q8HR PRN PEG ANXIETY Last administered on 03/14/17 09:05 ; Start 03/11/17 at 16:00 Potassium Chloride 40 meq 40 meq ONCE ONCE PO Last administered on 03/12/17 06 :43; Start 03/12/17 at 06:30; Stop 03/12/17 at 06:31; Status DC Potassium Chloride 100 ml @ 50 mls/hr Q2H IV Last administered on 03/12/17 08: 30; Start 03/12/17 at 06:30; Stop 03/12/17 at 10:29; Status DC Potassium Chloride 100 ml @ 50 mls/hr Q2H IV Last administered on 03/12/17 10: 15; Start 03/12/17 at 08:15; Stop 03/12/17 at 12:14; Status DC Magnesium Sulfate/ Dextrose (Magnesium Sulfate 1 Gm Premix) 100 ml @ 100 mls/ hr Q1H IV Last administered on 03/12/17 09:15; Start 03/12/17 at 08:15; Stop 03/12/17 at 10:14; Status DC Propofol (Diprivan 200 Mg/20 ml Inj) 20 mg STK-MED ONCE IV ; Start 03/10/17 at 08:32; Stop 03/13/17 at 08:32; Status DC Ondansetron HCl (Zofran Inj) 4 mg STK-MED ONCE IV PUSH ; Start 03/10/17 at 08:32 ; Stop 03/13/17 at 08:32; Status DC Lactated Ringer's 1000 ml 1,000 ml STK-MED ONCE IV ; Start 03/10/17 at 08:32; Stop 03/13/17 at 08:32; Status DC Potassium Chloride 100 ml @ 100 mls/hr Q1H IV Last administered on 03/13/17 18 :23; Start 03/13/17 at 15:00; Stop 03/13/17 at 17:59; Status DC Magnesium Sulfate/ Dextrose (Magnesium Sulfate 1 Gm Premix) 100 ml @ 100 mls/ hr Q1H IV Last administered on 03/14/17 14:23; Start 03/14/17 at 13:15; Stop 03/14/17 at 15:14; Status DC Polyethylene Glycol (Miralax) 17 gm UNSCH PRN G-TUBE CONSTIPATION; Start at 16:00 A/P Problem List: (1) Hypokalemia ICD Code: E87.6 Status: Resolved Assessment and Plan Chronic hypokalemia -Patient was worked up as outpatient per diagnosis with patient. -No events over telemetry. -Patient able to tolerate by mouth intake. She is being replenished with potassium. -Magnesium is 1.2 today so will give 2 g of magnesium. Continue with potassium supplement. Weight loss secondary to questionable gastroparesis status post PEG -Nutrition consulted and recommended vital 1.5 started at 20 cc/h decreased 10 mL's every 4 hours as tolerated to a goal of 60 cc/h. Acute renal failure -Secondary to dehydration. -Will need a follow-up creatinine today. -Continue with IV fluids. -Avoid nephrotoxins. Anxiety Disorder -on Diazepam DVT prophylaxis - Heparin 5000 units subq q8h Discharge Planning Once patient able to tolerate tube feeds and is at goal with normalization of her electrolytes and improvement of her kidney function can be discharged to home. Annette Marcelo MD March 14, 2017 16:32
[2017-03-14] MEDS ORDERED: POTASSIUM CHLORIDE 10 MEQ CONTROLLED RELEASE TAB PO ONE ×2 (16:45→21:00)
[2017-03-14 17:53] VITALS: O2SAT 99
[2017-03-14 20:00] VITALS: BP 93/52; PULSE 78; RESP 18; TEMP 97.1; O2SAT 97
[2017-03-14] MEDS: PANTOPRAZOLE SODIUM 40 MG VIAL IV PUSH SCH (20:29)
[2017-03-15] VITALS (10 sets, daily range): BP systolic 92–154; BP diastolic 51–78; PULSE 68–82; RESP 16–24; TEMP 96.1–98.6; O2SAT 93–99
[2017-03-15] MEDS: SODIUM CHLOR 0.9% 1000 ML INJ 1,000 ML IV SCH ×3 (00:52→16:24)
[2017-03-15] MEDS: MORPHINE SULFATE 4 MG/ML INJ IV PUSH PRN ×4 (01:55→20:38)
[2017-03-15] MEDS: DIAZEPAM 5 MG TAB PEG PRN ×3 (01:57→18:03)
[2017-03-15] MEDS: ONDANSETRON HCL 4 MG/2 ML VIAL IVP PRN (05:05)
[2017-03-15] MEDS: HEPARIN SODIUM - SQ 10,000 UNITS/ML VIAL SQ SCH ×3 (05:31→20:37)
[2017-03-15] MEDS: SUCRALFATE 1 GM/10 ML CUP PEG SCH ×4 (05:31→20:37)
[2017-03-15 06:58] LABS: BICARBONATE 26.2 MEQ/L (21.0-32.0); POTASSIUM 3.6 MEQ/L (3.5-5.1)
[2017-03-15] MEDS: SODIUM CHLORIDE 0.9% FLUSH 10 ML FLUSH IV FLUSH SCH ×2 (08:06→20:36)
[2017-03-15] MEDS: POTASSIUM PHOSPHATE MONOBASIC 500 MG TAB PEG SCH (09:00)
[2017-03-15] MEDS: CHOLECALCIFEROL (VIT D3) 5000 UNIT CAP PO SCH (09:00)
[2017-03-15] MEDS: POTASSIUM CHLORIDE 25 MEQ EFFERVESCENT TAB PEG SCH ×3 (09:00→17:13)
--- NOTE | 2017-03-15 11:09 | HHI.GIFU ---
Subjective Remarks Pt is agitated b/c she wants to eat but does not want TF and if she can't have real food she wants the GJ tube removed. She says the TF gives her indigestion, burping, abdominal pain and that the incision site hurts. She says she felt better when she had PO intake. No n/v. (Mari Pérez) Objective Vitals I&O Vital Signs Date Time Temp Pulse Resp B/P Pulse Ox O2 Delivery O2 Flow Rate FiO2 03/15/17 08:00 98.2 71 17 109/67 99 03/15/17 03:57 98.6 70 16 102/66 96 03/15/17 02:08 18 03/15/17 00:00 97.6 68 16 95/51 97 03/14/17 20:21 Room Air 03/14/17 20:00 97.1 78 18 93/52 97 03/14/17 17:53 99 21 03/14/17 16:00 98.1 71 18 98/50 99 03/14/17 12:00 98.3 74 17 107/67 97 I/O 03/14/17 03/14/17 03/14/17 03/15/17 03/15/17 03/15/17 07:00 15:00 23:00 07:00 15:00 23:00 Intake Total 2439 ml 720 ml 1675 ml 1761 ml Output Total 1010.0 ml 610.0 ml 810.0 ml 1000 ml Balance 1429.0 ml 110.0 ml 865.0 ml -1000 ml 1761 ml Intake Oral 380 ml 720 ml 480 ml IV Total 1881 ml 715 ml 1362 ml Tube Feeding 148 ml 480 ml 399 ml Other 30 ml Output Urine Total 1000 ml 600 ml 800 ml 1000 ml Tube Feeding Residual Discard 10.0 ml 10.0 ml 10.0 ml # Bowel Movements 0 Laboratory Laboratory Tests Test 03/14/17 03/15/17 11:28 06:12 Potassium Level 3.0 3.6 Magnesium Level 1.3 2.0 Sodium Level 140 Chloride Level 106 Carbon Dioxide Level 26.2 Anion Gap 8 Blood Urea Nitrogen 9 Creatinine 0.72 Estimat Glomerular Filtration 90 Rate Random Glucose 90 Calcium Level 8.6 Imaging Last Impressions Abdomen X-Ray 03/12/17 0600 Signed Impressions: Service Date/Time: Sunday, March 12, 2017 04:04 - CONCLUSION: Gaseous distention and bowel loops, slightly improved. Clayton Leonard MD Gastrostomy Tube Placement 03/10/17 0000 Signed Impressions: Service Date/Time: Friday, March 10, 2017 11:00 - CONCLUSION: Uncomplicated gastrojejunostomy tube placement as above. Vic Williamson Jr., MD Chest X-Ray 03/08/171921 Signed Impressions: Service Date/Time: Wednesday, March 08, 2017 19:34 - CONCLUSION: No acute disease. Kane Tejeda MD Abdomen/Pelvis CT 03/08/171921 Signed Impressions: Service Date/Time: Wednesday, March 08, 2017 21:28 - CONCLUSION: 1. Abnormal bowel gas pattern which may represent an ileus or gastroenteritis. Obstruction is less likely. 2. Small amount of fluid is again noted in the pelvis. Kane Tejeda MD Physical Exam HEENT: EOMI; normocephalic; atraumatic; no jaundice. CHEST: Chest is clear to auscultation and percussion. CARDIAC: Regular rate and rhythm with no murmur gallop or rubs. ABDOMEN: lower abd soft, diffuse TTP to light palpation but not pressure from stethoscope; no hepatosplenomegaly; bowel sounds are present in all four quadrants, GJ dressing clean. EXTREMITIES: No clubbing, cyanosis, or edema. SKIN: Normal; no rash; no jaundice. PROCESS ANALYST: No focal deficits; alert and oriented times three. (Mari Pérez [facility]) Assessment and Plan Plan ASSESSMENT: - weight loss - pt states she "has gastroparesis and cannot absorb nutrients" and has lost 150 lbs in last year and a half. GI consulted for PEG placement - gastroparesis - s/p GJ tube placement by IR. pt unaware of having GES, says diagnosis came from endoscopy. Pt made NPO yesterday with only TF and says that did not help and wants to eat b/c that made her feel better. Will try decreased TF rate and full liquids. Nutrition Recommends Vital 1.5 via J-tube, start at 20 ml/hr, increase as tolerated 10 mls q 4 hrs until goal rate of 60 ml/hr is reached. - abdominal pain - pt c/o incisional pain +BM 5--17. Miralax prn constipation. KUB 03-12-17 ---> Gaseous distention and bowel loops, slightly improved. KUB (03/11/17) Multiple dilated small bowel loops again seen KUB 03-09-17 --> Persistent abnormally dilated small bowel with little distal gas and colon gas visualized. Differential diagnosis remains ileus versus distal small bowel obstruction. Consider followup imaging to assess for change. CT 03-08-17 --> 1. Abnormal bowel gas pattern which may represent an ileus or gastroenteritis. Obstruction is less likely. 2. Small amount of fluid is again noted in the pelvis. Pt claims to have hx fecal impaction and need for disimpaction. PLAN: - full liquids w/ TF - start TF 10cc/hr and see how she does - consider nocturnal TF - miralax prn constipation - Supportive care This pt seen by myself and DR Charles and this note is written on her behalf. ( Mari Pérez) Physician Comments seen, examined agree with above we will try feeding at night 30 cc/hrs low residual diet during day (Aliyah Charles MD) Mari Pérez March 15, 2017 11:09 Aliyah Charles MD March 15, 2017 17:34
[2017-03-15] MEDS: MAGNESIUM OXIDE 400 MG TAB PEG SCH ×2 (12:57→20:37)
--- NOTE | 2017-03-15 16:06 | HHI.PR ---
Subjective Remarks Follow-up for GJ tube placement and abdominal pain. Patient continues complain about abdominal pain at the tube site. She stated that she does not understand why she needs to be sent out that it was placed just for her electrolytes replacement. Patient also asking why her Synthroid was not restarted. Otherwise she has no other complaints. Objective Vitals Vital Signs Date Time Temp Pulse Resp B/P Pulse Ox O2 Delivery O2 Flow Rate FiO2 03/15/17 12:00 96.1 79 24 129/59 97 03/15/17 11:54 97 03/15/17 10:17 69 03/15/17 08:00 98.2 71 17 109/67 99 03/15/17 03:57 98.6 70 16 102/66 96 03/15/17 02:08 18 03/15/17 00:00 97.6 68 16 95/51 97 03/14/17 20:21 Room Air 03/14/17 20:00 97.1 78 18 93/52 97 03/14/17 17:53 99 21 I/O 03/14/17 03/14/17 03/14/17 03/15/17 03/15/17 03/15/17 07:00 15:00 23:00 07:00 15:00 23:00 Intake Total 2439 ml 720 ml 1675 ml 2503 ml Output Total 1010.0 ml 610.0 ml 810.0 ml 1000 ml Balance 1429.0 ml 110.0 ml 865.0 ml -1000 ml 2503 ml Intake Oral 380 ml 720 ml 480 ml IV Total 1881 ml 715 ml 2104 ml Tube Feeding 148 ml 480 ml 399 ml Other 30 ml Output Urine Total 1000 ml 600 ml 800 ml 1000 ml Tube Feeding Residual Discard 10.0 ml 10.0 ml 10.0 ml # Bowel Movements 0 Result Diagram: 03/15/17 0612 Objective Remarks GENERAL: in NAD and sitting comfortable in bed. SKIN: Warm and dry. HEAD: Normocephalic. EYES: No scleral icterus. No injection or drainage. NECK: Supple, trachea midline. No JVD or lymphadenopathy. CARDIOVASCULAR: Regular rate and rhythm without murmurs, gallops, or rubs. RESPIRATORY: Breath sounds equal bilaterally. No accessory muscle use. GASTROINTESTINAL: Abdomen soft, + diffuse TTP but no peritoneal signs. When I' m palpating she stated that she is in pain but shows no grimaces. GJ tube is in place. No infection noted. Medications and IVs Current Medications Sodium Chloride (NS Flush) 2 ml UNSCH PRN IV FLUSH FLUSH AFTER USING IV ACCESS ; Start 03/08/17 at 19:30; Stop 03/08/17 at 22:15; Status DC Sodium Chloride 2 ml 2 ml UNSCH PRN IVF FLUSH AFTER USING IV ACCESS; Start 03/08 at 21:00; Stop 03/08/17 at 22:15; Status DC Potassium Chloride/Sodium Chloride (NS + KCl 40 Meq Inj) 1,000 ml @ 100 mls/hr Q10H IV Last administered on 03/09/17 09:16; Start 03/08/17 at 21:45; Stop at 13:42; Status DC Ondansetron HCl (Zofran Inj) 4 mg ONCE ONCE IV PUSH Last administered on 22:13; Start 03/08/17 at 22:00; Stop 03/08/17 at 22:01; Status DC Morphine Sulfate (Morphine Inj) 2 mg ONCE ONCE IV PUSH Last administered on 22:14; Start 03/08/17 at 22:00; Stop 03/08/17 at 22:01; Status DC Sodium Chloride (NS Flush) 2 ml UNSCH PRN IV FLUSH FLUSH AFTER USING IV ACCESS ; Start 03/08/17 at 22:00 Sodium Chloride (NS Flush) 2 ml BID IV FLUSH Last administered on 03/15/17 08: 06; Start 03/09/17 at 09:00 Ondansetron HCl (Zofran Inj) 4 mg Q6H PRN IVP NAUSEA OR VOMITING Last administered on 03/15/17 05:05; Start 03/08/17 at 22:00 Naloxone HCl (Narcan Inj) 0.4 mg UNSCH PRN IV SEE LABEL COMMENTS; Start at 22:00 Potassium Chloride 40 meq 40 meq ONCE ONCE PO Last administered on 03/08/17 22 :28; Start 03/08/17 at 22:15; Stop 03/08/17 at 22:16; Status DC Potassium Chloride (KCl 20 Meq Premix Inj) 100 ml @ 50 mls/hr Q2H IV Last administered on 03/09/17 00:15; Start 03/08/17 at 22:15; Stop 03/09/17 at 02:14; Status DC Cholecalciferol (Vitamin D3) 20,000 units Q3D PO Last administered on 03/12/17 08:32; Start 03/09/17 at 09:00 Pantoprazole Sodium (Protonix) 40 mg DAILY@06 PO ; Start 03/10/17 at 06:00; Stop 03/10/17 at 20:46; Status DC Sucralfate (Carafate Liq) 1 gm ACHS PO Last administered on 03/09/17 10:58; Start 03/09/17 at 07:00; Stop 03/11/17 at 08:15; Status DC Pantoprazole Sodium (Protonix Inj) 80 mg ONCE ONCE IV PUSH ; Start 03/09/17 at 02:00; Stop 03/09/17 at 02:01; Status Cancel Morphine Sulfate 2 mg 2 mg Q6HR PRN IV PUSH PAIN >5 Last administered on 14:07; Start 03/09/17 at 02:00 Pantoprazole Sodium/Sodium Chloride (Protonix Inj/NS Inj) 35 ml @ 420 mls/hr ONCE ONCE IV Last administered on 03/09/17 02:59; Start 03/09/17 at 02:15; Stop 03/09/17 at 02:19; Status DC Potassium Chloride 40 meq 40 meq ONCE ONCE PO Last administered on 03/09/17 03 :00; Start 03/09/17 at 02:30; Stop 03/09/17 at 02:31; Status DC Potassium Chloride (KCl 20 Meq Premix Inj) 100 ml @ 50 mls/hr Q2H IV Last administered on 03/09/17 06:12; Start 03/09/17 at 02:30; Stop 03/09/17 at 06:29; Status DC Heparin Sodium (Porcine) 5000 units 5,000 units Q8HR SQ Last administered on 05:31; Start 03/09/17 at 06:00 Potassium Chloride (KCl 20 Meq Premix Inj) 100 ml @ 50 mls/hr Q2H IV Last administered on 03/09/17 10:58; Start 03/09/17 at 08:30; Stop 03/09/17 at 12:29; Status DC Potassium Chloride (KCl) 40 meq ONCE ONCE PO Last administered on 03/09/17 09: 15; Start 03/09/17 at 08:30; Stop 03/09/17 at 09:01; Status DC Metoclopramide HCl (Reglan Inj) 10 mg Q8H PRN IV PUSH nausea Last administered on 03/14/17 00:07; Start 03/09/17 at 08:30 Potassium Chloride (KCl) 40 meq TID PO ; Start 03/09/17 at 18:00; Stop 03/11/17 at 08:21; Status DC Potassium Phosphate (K-Phos) 1,000 mg DAILY PO Last administered on 03/09/17 17 :11; Start 03/09/17 at 13:15; Stop 03/11/17 at 08:15; Status DC Magnesium Oxide 400 mg 400 mg Q12HR PO ; Start 03/09/17 at 21:00; Stop 03/11/17 at 08:15; Status DC Sodium Chloride 1,000 ml @ 125 mls/hr Q8H IV ; Start 03/09/17 at 16:15; Stop 03/09/17 at 21:55; Status DC Sodium Chloride 500 ml @ 500 mls/hr BOLUS ONCE IV ; Start 03/09/17 at 16:15; Stop 03/09/17 at 17:14; Status DC Potassium Chloride 100 ml @ 100 mls/hr Q1H IV Last administered on 03/09/17 21 :52; Start 03/09/17 at 17:00; Stop 03/09/17 at 19:59; Status DC Potassium Chloride 100 ml @ 50 mls/hr Q2H IV ; Start 03/09/17 at 21:30; Stop 03/09/17 at 21:30; Status DC Sodium Chloride 1,000 ml @ 125 mls/hr Q8H IV Last administered on 03/15/17 08 :06; Start 03/09/17 at 22:00 Potassium Chloride 100 ml @ 50 mls/hr Q2H IV Last administered on 03/10/17 10: 43; Start 03/10/17 at 09:00; Stop 03/10/17 at 12:59; Status DC Levofloxacin/ Dextrose (Levaquin 500 Mg Premix Inj) 100 ml @ As Directed STK- MED ONCE IV ; Start 03/10/17 at 11:02; Stop 03/10/17 at 11:03; Status DC Diphenhydramine HCl (Benadryl Inj) 50 mg STK-MED ONCE .ROUTE ; Start 03/10/17 at 11:25; Stop 03/10/17 at 11:26; Status DC Glucagon (Glucagon Inj) 1 mg STK-MED ONCE .ROUTE Last administered on 03/10/17 11:33; Start 03/10/17 at 11:33; Stop 03/10/17 at 11:34; Status DC Iohexol (Omnipaque 300 Inj) 40 ml STK-MED ONCE G-TUBE ; Start 03/10/17 at 12:26; Stop 03/10/17 at 12:27; Status DC Iohexol (Omnipaque 350 Inj) 40 ml STK-MED ONCE G-TUBE Last administered on 12:30; Start 03/10/17 at 12:30; Stop 03/10/17 at 12:31; Status DC Miscellaneous Information ALL NURSING DEPARTME... UNSCH PRN .XX SEE LABEL COMMENTS; Start 03/10/17 at 12:35; Stop 03/11/17 at 12:34; Status DC Morphine Sulfate (*morphine INJ PERIprocedure ONLY) 8 mg STK-MED ONCE .ROUTE Last administered on 03/10/17 13:01; Start 03/10/17 at 13:01; Stop 03/10/17 at 13: 02; Status DC Fentanyl Citrate (fentaNYL INJ) 250 mcg STK-MED ONCE .ROUTE ; Start 03/10/17 at 13:11; Stop 03/10/17 at 13:12; Status DC Morphine Sulfate (Morphine Inj) 4 mg STK-MED ONCE .ROUTE ; Start 03/10/17 at 13: 12; Stop 03/10/17 at 13:13; Status DC Magnesium Citrate (Citroma Liq) 300 ml ONCE ONCE PO Last administered on 15:24; Start 03/10/17 at 15:00; Stop 03/10/17 at 15:08; Status DC Diazepam (Valium) 5 mg Q12HR PRN PEG ANXIETY Last administered on 03/11/17 08: 24; Start 03/10/17 at 15:30; Stop 03/11/17 at 15:57; Status DC Pantoprazole Sodium 40 mg 40 mg Q24H IV PUSH Last administered on 03/14/17 20: 29; Start 03/10/17 at 21:00 Potassium Chloride (KCl 20 Meq Premix Inj) 100 ml @ 50 mls/hr Q2H IV Last administered on 03/11/17 01:00; Start 03/10/17 at 21:00; Stop 03/11/17 at 02:59; Status DC Lorazepam 0.5 mg 0.5 mg ONCE ONCE IV PUSH Last administered on 03/10/17 21:36 ; Start 03/10/17 at 21:15; Stop 03/10/17 at 21:24; Status DC Potassium Chloride (KCl 20 Meq Premix Inj) 100 ml @ 50 mls/hr Q2H IV Last administered on 03/11/17 10:15; Start 03/11/17 at 08:15; Stop 03/11/17 at 12:14; Status DC Magnesium Oxide (Mag-Ox) 400 mg Q12H PEG Last administered on 03/15/17 12:57; Start 03/11/17 at 11:00 Potassium Phosphate (K-Phos) 1,000 mg DAILY PEG Last administered on 03/14/17 07:48; Start 03/11/17 at 09:00 Sucralfate (Carafate Liq) 1 gm ACHS PEG Last administered on 03/15/17 12:56; Start 03/11/17 at 11:00 Potassium Bicarb/ Potassium Chloride (K-Lyte Cl Eff) 25 meq TID PEG Last administered on 03/15/17 12:57; Start 03/11/17 at 09:00 Diazepam (Valium) 5 mg Q8HR PRN PEG ANXIETY Last administered on 03/15/17 10: 03; Start 03/11/17 at 16:00 Potassium Chloride 40 meq 40 meq ONCE ONCE PO Last administered on 03/12/17 06 :43; Start 03/12/17 at 06:30; Stop 03/12/17 at 06:31; Status DC Potassium Chloride 100 ml @ 50 mls/hr Q2H IV Last administered on 03/12/17 08: 30; Start 03/12/17 at 06:30; Stop 03/12/17 at 10:29; Status DC Potassium Chloride 100 ml @ 50 mls/hr Q2H IV Last administered on 03/12/17 10: 15; Start 03/12/17 at 08:15; Stop 03/12/17 at 12:14; Status DC Magnesium Sulfate/ Dextrose (Magnesium Sulfate 1 Gm Premix) 100 ml @ 100 mls/ hr Q1H IV Last administered on 03/12/17 09:15; Start 03/12/17 at 08:15; Stop 03/12/17 at 10:14; Status DC Propofol (Diprivan 200 Mg/20 ml Inj) 20 mg STK-MED ONCE IV ; Start 03/10/17 at 08:32; Stop 03/13/17 at 08:32; Status DC Ondansetron HCl (Zofran Inj) 4 mg STK-MED ONCE IV PUSH ; Start 03/10/17 at 08:32 ; Stop 03/13/17 at 08:32; Status DC Lactated Ringer's 1000 ml 1,000 ml STK-MED ONCE IV ; Start 03/10/17 at 08:32; Stop 03/13/17 at 08:32; Status DC Potassium Chloride 100 ml @ 100 mls/hr Q1H IV Last administered on 03/13/17 18 :23; Start 03/13/17 at 15:00; Stop 03/13/17 at 17:59; Status DC Magnesium Sulfate/ Dextrose (Magnesium Sulfate 1 Gm Premix) 100 ml @ 100 mls/ hr Q1H IV Last administered on 03/14/17 14:23; Start 03/14/17 at 13:15; Stop 03/14/17 at 15:14; Status DC Polyethylene Glycol (Miralax) 17 gm UNSCH PRN G-TUBE CONSTIPATION; Start at 16:00 Potassium Chloride (KCl) 30 meq ONCE ONCE PO Last administered on 03/14/17 17: 10; Start 03/14/17 at 16:45; Stop 03/14/17 at 16:46; Status DC Potassium Chloride (KCl) 30 meq ONCE ONCE PO Last administered on 03/14/17 20: 35; Start 03/14/17 at 21:00; Stop 03/14/17 at 21:01; Status DC A/P Problem List: (1) Hypokalemia ICD Code: E87.6 Status: Resolved Assessment and Plan Chronic hypokalemia -Patient was worked up as outpatient per diagnosis with patient. -No events over telemetry. -Patient able to tolerate by mouth intake. She is being replenished with potassium. -Magnesium and potassium were within normal limits. Continue with current replacement. Will repeat BMP and magnesium tomorrow. Weight loss secondary to questionable gastroparesis status post PEG -Nutrition consulted and recommended vital 1.5 started at 20 cc/h decreased 10 mL's every 4 hours as tolerated to a goal of 60 cc/h. -Patient refused tube feeds and per GI there will start her at a lower rate. Acute renal failure -Resolved. -Secondary to dehydration. - on IV fluids. -Avoid nephrotoxins. Anxiety Disorder -on Diazepam DVT prophylaxis - Heparin 5000 units subq q8h Discharge Planning Once patient able to tolerate tube feeds can be discharged to home. Annette Marcelo MD March 15, 2017 16:06 Annette Marcelo MD March 15, 2017 16:06
[2017-03-15] MEDS: PANTOPRAZOLE SODIUM 40 MG VIAL IV PUSH SCH (20:36)
[2017-03-16] VITALS (9 sets, daily range): BP systolic 99–107; BP diastolic 58–87; PULSE 72–110; RESP 16–21; TEMP 96.7–98.7; O2SAT 95–99
[2017-03-16] MEDS: SODIUM CHLOR 0.9% 1000 ML INJ 1,000 ML IV SCH ×4 (01:59→21:10)
[2017-03-16] MEDS: MORPHINE SULFATE 4 MG/ML INJ IV PUSH PRN ×4 (02:45→22:49)
[2017-03-16] MEDS: DIAZEPAM 5 MG TAB PEG PRN ×3 (03:26→21:09)
[2017-03-16 04:53] LABS: BICARBONATE 20.4 MEQ/L (21.0-32.0); MAGNESIUM 1.5 MG/DL (1.5-2.5); POTASSIUM 4.5 MEQ/L (3.5-5.1)
[2017-03-16] MEDS: HEPARIN SODIUM - SQ 10,000 UNITS/ML VIAL SQ SCH ×3 (06:01→21:10)
[2017-03-16] MEDS: SUCRALFATE 1 GM/10 ML CUP PEG SCH ×4 (06:01→21:09)
[2017-03-16] MEDS: POTASSIUM CHLORIDE 25 MEQ EFFERVESCENT TAB PEG SCH (08:52)
[2017-03-16] MEDS: POTASSIUM PHOSPHATE MONOBASIC 500 MG TAB PEG SCH (08:52)
[2017-03-16] MEDS: SODIUM CHLORIDE 0.9% FLUSH 10 ML FLUSH IV FLUSH SCH ×2 (09:00→21:10)
[2017-03-16] MEDS ORDERED: MAGNESIUM SULFATE 1 GM PREMIX 100 ML IV ONE (09:15)
--- NOTE | 2017-03-16 09:22 | HHI.PR ---
Subjective Remarks f/u for GJ peg and abdominal pain. patient stated GI spoke to her yesterday in regards to her multiple questions and she feels better. Pain not as severe today. Denied any N/V. Patient asking about TSH results. patient stated that she is lactating and her son is 9 years old. Otherwise she has no complaints. Objective Vitals Vital Signs Date Time Temp Pulse Resp B/P Pulse Ox O2 Delivery O2 Flow Rate FiO2 03/16/17 08:00 97.0 72 16 102/69 99 03/16/17 04:00 97.8 74 20 99/58 96 03/16/17 03:39 18 03/16/17 00:00 98.0 78 20 100/60 95 03/15/17 20:35 81 03/15/17 20:35 81 03/15/17 20:00 97.8 82 20 93/58 96 03/15/17 17:08 97 03/15/17 16:00 98.4 74 20 92/51 93 03/15/17 12:00 96.1 79 24 129/59 97 03/15/17 11:54 97 03/15/17 10:17 69 I/O 03/15/17 03/15/17 03/15/17 03/16/17 03/16/17 03/16/17 07:00 15:00 23:00 07:00 15:00 23:00 Intake Total 3563 ml 924 ml 1537 ml Output Total 1000 ml 850 ml Balance -1000 ml 3563 ml 924 ml 687 ml Intake Oral 1060 ml 240 ml IV Total 2104 ml 924 ml 1161 ml Tube Feeding 399 ml 136 ml Output Urine Total 1000 ml 850 ml # Voids 3 # Bowel Movements 0 0 Result Diagram: 03/16/17 0349 Objective Remarks GENERAL: in NAD and sitting comfortable in bed. SKIN: Warm and dry. HEAD: Normocephalic. EYES: No scleral icterus. No injection or drainage. NECK: Supple, trachea midline. No JVD or lymphadenopathy. CARDIOVASCULAR: Regular rate and rhythm without murmurs, gallops, or rubs. RESPIRATORY: Breath sounds equal bilaterally. No accessory muscle use. GASTROINTESTINAL: Abdomen soft, + diffuse TTP but no peritoneal signs. When I' m palpating she stated that she is in pain but shows no grimaces. GJ tube is in place. No infection noted. Medications and IVs Current Medications Sodium Chloride (NS Flush) 2 ml UNSCH PRN IV FLUSH FLUSH AFTER USING IV ACCESS ; Start 03/08/17 at 19:30; Stop 03/08/17 at 22:15; Status DC Sodium Chloride 2 ml 2 ml UNSCH PRN IVF FLUSH AFTER USING IV ACCESS; Start 03/08 at 21:00; Stop 03/08/17 at 22:15; Status DC Potassium Chloride/Sodium Chloride (NS + KCl 40 Meq Inj) 1,000 ml @ 100 mls/hr Q10H IV Last administered on 03/09/17 09:16; Start 03/08/17 at 21:45; Stop at 13:42; Status DC Ondansetron HCl (Zofran Inj) 4 mg ONCE ONCE IV PUSH Last administered on 22:13; Start 03/08/17 at 22:00; Stop 03/08/17 at 22:01; Status DC Morphine Sulfate (Morphine Inj) 2 mg ONCE ONCE IV PUSH Last administered on 22:14; Start 03/08/17 at 22:00; Stop 03/08/17 at 22:01; Status DC Sodium Chloride (NS Flush) 2 ml UNSCH PRN IV FLUSH FLUSH AFTER USING IV ACCESS ; Start 03/08/17 at 22:00 Sodium Chloride (NS Flush) 2 ml BID IV FLUSH Last administered on 03/15/17 20: 36; Start 03/09/17 at 09:00 Ondansetron HCl (Zofran Inj) 4 mg Q6H PRN IVP NAUSEA OR VOMITING Last administered on 03/15/17 05:05; Start 03/08/17 at 22:00 Naloxone HCl (Narcan Inj) 0.4 mg UNSCH PRN IV SEE LABEL COMMENTS; Start at 22:00 Potassium Chloride 40 meq 40 meq ONCE ONCE PO Last administered on 03/08/17 22 :28; Start 03/08/17 at 22:15; Stop 03/08/17 at 22:16; Status DC Potassium Chloride (KCl 20 Meq Premix Inj) 100 ml @ 50 mls/hr Q2H IV Last administered on 03/09/17 00:15; Start 03/08/17 at 22:15; Stop 03/09/17 at 02:14; Status DC Cholecalciferol (Vitamin D3) 20,000 units Q3D PO Last administered on 03/12/17 08:32; Start 03/09/17 at 09:00 Pantoprazole Sodium (Protonix) 40 mg DAILY@06 PO ; Start 03/10/17 at 06:00; Stop 03/10/17 at 20:46; Status DC Sucralfate (Carafate Liq) 1 gm ACHS PO Last administered on 03/09/17 10:58; Start 03/09/17 at 07:00; Stop 03/11/17 at 08:15; Status DC Pantoprazole Sodium (Protonix Inj) 80 mg ONCE ONCE IV PUSH ; Start 03/09/17 at 02:00; Stop 03/09/17 at 02:01; Status Cancel Morphine Sulfate 2 mg 2 mg Q6HR PRN IV PUSH PAIN >5 Last administered on 09:00; Start 03/09/17 at 02:00 Pantoprazole Sodium/Sodium Chloride (Protonix Inj/NS Inj) 35 ml @ 420 mls/hr ONCE ONCE IV Last administered on 03/09/17 02:59; Start 03/09/17 at 02:15; Stop 03/09/17 at 02:19; Status DC Potassium Chloride 40 meq 40 meq ONCE ONCE PO Last administered on 03/09/17 03 :00; Start 03/09/17 at 02:30; Stop 03/09/17 at 02:31; Status DC Potassium Chloride (KCl 20 Meq Premix Inj) 100 ml @ 50 mls/hr Q2H IV Last administered on 03/09/17 06:12; Start 03/09/17 at 02:30; Stop 03/09/17 at 06:29; Status DC Heparin Sodium (Porcine) 5000 units 5,000 units Q8HR SQ Last administered on 06:01; Start 03/09/17 at 06:00 Potassium Chloride (KCl 20 Meq Premix Inj) 100 ml @ 50 mls/hr Q2H IV Last administered on 03/09/17 10:58; Start 03/09/17 at 08:30; Stop 03/09/17 at 12:29; Status DC Potassium Chloride (KCl) 40 meq ONCE ONCE PO Last administered on 03/09/17 09: 15; Start 03/09/17 at 08:30; Stop 03/09/17 at 09:01; Status DC Metoclopramide HCl (Reglan Inj) 10 mg Q8H PRN IV PUSH nausea Last administered on 03/14/17 00:07; Start 03/09/17 at 08:30 Potassium Chloride (KCl) 40 meq TID PO ; Start 03/09/17 at 18:00; Stop 03/11/17 at 08:21; Status DC Potassium Phosphate (K-Phos) 1,000 mg DAILY PO Last administered on 03/09/17 17 :11; Start 03/09/17 at 13:15; Stop 03/11/17 at 08:15; Status DC Magnesium Oxide 400 mg 400 mg Q12HR PO ; Start 03/09/17 at 21:00; Stop 03/11/17 at 08:15; Status DC Sodium Chloride 1,000 ml @ 125 mls/hr Q8H IV ; Start 03/09/17 at 16:15; Stop 03/09/17 at 21:55; Status DC Sodium Chloride 500 ml @ 500 mls/hr BOLUS ONCE IV ; Start 03/09/17 at 16:15; Stop 03/09/17 at 17:14; Status DC Potassium Chloride 100 ml @ 100 mls/hr Q1H IV Last administered on 03/09/17 21 :52; Start 03/09/17 at 17:00; Stop 03/09/17 at 19:59; Status DC Potassium Chloride 100 ml @ 50 mls/hr Q2H IV ; Start 03/09/17 at 21:30; Stop 03/09/17 at 21:30; Status DC Sodium Chloride 1,000 ml @ 125 mls/hr Q8H IV Last administered on 03/16/17 09 :01; Start 03/09/17 at 22:00 Potassium Chloride 100 ml @ 50 mls/hr Q2H IV Last administered on 03/10/17 10: 43; Start 03/10/17 at 09:00; Stop 03/10/17 at 12:59; Status DC Levofloxacin/ Dextrose (Levaquin 500 Mg Premix Inj) 100 ml @ As Directed STK- MED ONCE IV ; Start 03/10/17 at 11:02; Stop 03/10/17 at 11:03; Status DC Diphenhydramine HCl (Benadryl Inj) 50 mg STK-MED ONCE .ROUTE ; Start 03/10/17 at 11:25; Stop 03/10/17 at 11:26; Status DC Glucagon (Glucagon Inj) 1 mg STK-MED ONCE .ROUTE Last administered on 03/10/17 11:33; Start 03/10/17 at 11:33; Stop 03/10/17 at 11:34; Status DC Iohexol (Omnipaque 300 Inj) 40 ml STK-MED ONCE G-TUBE ; Start 03/10/17 at 12:26; Stop 03/10/17 at 12:27; Status DC Iohexol (Omnipaque 350 Inj) 40 ml STK-MED ONCE G-TUBE Last administered on 12:30; Start 03/10/17 at 12:30; Stop 03/10/17 at 12:31; Status DC Miscellaneous Information ALL NURSING DEPARTME... UNSCH PRN .XX SEE LABEL COMMENTS; Start 03/10/17 at 12:35; Stop 03/11/17 at 12:34; Status DC Morphine Sulfate (*morphine INJ PERIprocedure ONLY) 8 mg STK-MED ONCE .ROUTE Last administered on 03/10/17 13:01; Start 03/10/17 at 13:01; Stop 03/10/17 at 13: 02; Status DC Fentanyl Citrate (fentaNYL INJ) 250 mcg STK-MED ONCE .ROUTE ; Start 03/10/17 at 13:11; Stop 03/10/17 at 13:12; Status DC Morphine Sulfate (Morphine Inj) 4 mg STK-MED ONCE .ROUTE ; Start 03/10/17 at 13: 12; Stop 03/10/17 at 13:13; Status DC Magnesium Citrate (Citroma Liq) 300 ml ONCE ONCE PO Last administered on 15:24; Start 03/10/17 at 15:00; Stop 03/10/17 at 15:08; Status DC Diazepam (Valium) 5 mg Q12HR PRN PEG ANXIETY Last administered on 03/11/17 08: 24; Start 03/10/17 at 15:30; Stop 03/11/17 at 15:57; Status DC Pantoprazole Sodium 40 mg 40 mg Q24H IV PUSH Last administered on 03/15/17 20: 36; Start 03/10/17 at 21:00 Potassium Chloride (KCl 20 Meq Premix Inj) 100 ml @ 50 mls/hr Q2H IV Last administered on 03/11/17 01:00; Start 03/10/17 at 21:00; Stop 03/11/17 at 02:59; Status DC Lorazepam 0.5 mg 0.5 mg ONCE ONCE IV PUSH Last administered on 03/10/17 21:36 ; Start 03/10/17 at 21:15; Stop 03/10/17 at 21:24; Status DC Potassium Chloride (KCl 20 Meq Premix Inj) 100 ml @ 50 mls/hr Q2H IV Last administered on 03/11/17 10:15; Start 03/11/17 at 08:15; Stop 03/11/17 at 12:14; Status DC Magnesium Oxide (Mag-Ox) 400 mg Q12H PEG Last administered on 03/15/17 20:37; Start 03/11/17 at 11:00 Potassium Phosphate (K-Phos) 1,000 mg DAILY PEG Last administered on 03/14/17 07:48; Start 03/11/17 at 09:00 Sucralfate (Carafate Liq) 1 gm ACHS PEG Last administered on 03/16/17 06:01; Start 03/11/17 at 11:00 Potassium Bicarb/ Potassium Chloride (K-Lyte Cl Eff) 25 meq TID PEG Last administered on 03/15/17 17:13; Start 03/11/17 at 09:00 Diazepam (Valium) 5 mg Q8HR PRN PEG ANXIETY Last administered on 03/16/17 03: 26; Start 03/11/17 at 16:00 Potassium Chloride 40 meq 40 meq ONCE ONCE PO Last administered on 03/12/17 06 :43; Start 03/12/17 at 06:30; Stop 03/12/17 at 06:31; Status DC Potassium Chloride 100 ml @ 50 mls/hr Q2H IV Last administered on 03/12/17 08: 30; Start 03/12/17 at 06:30; Stop 03/12/17 at 10:29; Status DC Potassium Chloride 100 ml @ 50 mls/hr Q2H IV Last administered on 03/12/17 10: 15; Start 03/12/17 at 08:15; Stop 03/12/17 at 12:14; Status DC Magnesium Sulfate/ Dextrose (Magnesium Sulfate 1 Gm Premix) 100 ml @ 100 mls/ hr Q1H IV Last administered on 03/12/17 09:15; Start 03/12/17 at 08:15; Stop 03/12/17 at 10:14; Status DC Propofol (Diprivan 200 Mg/20 ml Inj) 20 mg STK-MED ONCE IV ; Start 03/10/17 at 08:32; Stop 03/13/17 at 08:32; Status DC Ondansetron HCl (Zofran Inj) 4 mg STK-MED ONCE IV PUSH ; Start 03/10/17 at 08:32 ; Stop 03/13/17 at 08:32; Status DC Lactated Ringer's 1000 ml 1,000 ml STK-MED ONCE IV ; Start 03/10/17 at 08:32; Stop 03/13/17 at 08:32; Status DC Potassium Chloride 100 ml @ 100 mls/hr Q1H IV Last administered on 03/13/17 18 :23; Start 03/13/17 at 15:00; Stop 03/13/17 at 17:59; Status DC Magnesium Sulfate/ Dextrose (Magnesium Sulfate 1 Gm Premix) 100 ml @ 100 mls/ hr Q1H IV Last administered on 03/14/17 14:23; Start 03/14/17 at 13:15; Stop 03/14/17 at 15:14; Status DC Polyethylene Glycol (Miralax) 17 gm UNSCH PRN G-TUBE CONSTIPATION; Start at 16:00 Potassium Chloride (KCl) 30 meq ONCE ONCE PO Last administered on 03/14/17 17: 10; Start 03/14/17 at 16:45; Stop 03/14/17 at 16:46; Status DC Potassium Chloride (KCl) 30 meq ONCE ONCE PO Last administered on 03/14/17 20: 35; Start 03/14/17 at 21:00; Stop 03/14/17 at 21:01; Status DC A/P Problem List: (1) Hypokalemia ICD Code: E87.6 Status: Resolved Assessment and Plan Chronic hypokalemia -Patient was worked up as outpatient per diagnosis with patient. -No events over telemetry. -Patient able to tolerate by mouth intake. She is being replenished with potassium. -Magnesium and potassium were within normal limits. Continue with current replacement. K is now 4.5 so will hold and adjust tomorrow based on results. -increase Mg to 400 mg TID and give 1 g IV dose. Weight loss secondary to questionable gastroparesis status post PEG -Nutrition consulted and recommended vital 1.5 started at 20 cc/h decreased 10 mL's every 4 hours as tolerated to a goal of 60 cc/h. -Patient refused tube feeds and per GI there will start her at a lower rate. Acute renal failure -Resolved. -Secondary to dehydration. - on IV fluids. -Avoid nephrotoxins. Anxiety Disorder -on Diazepam -will get basic hormonal work up but this is chronics. patient told to f/u with PCP. DVT prophylaxis - Heparin 5000 units subq q8h Discharge Planning Once patient able to tolerate tube feeds can be discharged to home. Annette Marcelo MD March 16, 2017 09:22
[2017-03-16] MEDS: MAGNESIUM OXIDE 400 MG TAB PEG SCH ×2 (11:52→16:45)
[2017-03-16 11:59] LABS: FOLLICLE STIMULATING HORMONE 5.4 mIU/mL; LUTEINIZING HORMONE 0.8 mIU/mL
--- NOTE | 2017-03-16 12:53 | HHI.GIFU ---
Subjective Remarks Pt OOB, says she is trying to mobilize. C/o that she felt popping sensation at GJ site and stitch popped out. She has some lower abd discomfort and says she is constipated again. SAys abd cramping improved, no n/v. She did ok with full liquids. SHe is askign to go home. (Mari Pérez) Objective Vitals I&O Vital Signs Date Time Temp Pulse Resp B/P Pulse Ox O2 Delivery O2 Flow Rate FiO2 03/16/17 12:00 98.7 95 17 102/69 96 03/16/17 09:40 98 21 03/16/17 08:00 97.0 72 16 102/69 99 03/16/17 04:00 97.8 74 20 99/58 96 03/16/17 03:39 18 03/16/17 00:00 98.0 78 20 100/60 95 03/15/17 20:35 81 03/15/17 20:35 81 03/15/17 20:00 97.8 82 20 93/58 96 03/15/17 17:08 97 03/15/17 16:00 98.4 74 20 92/51 93 I/O 03/15/17 03/15/17 03/15/17 03/16/17 03/16/17 03/16/17 07:00 15:00 23:00 07:00 15:00 23:00 Intake Total 3563 ml 924 ml 1537 ml Output Total 1000 ml 850 ml Balance -1000 ml 3563 ml 924 ml 687 ml Intake Oral 1060 ml 240 ml IV Total 2104 ml 924 ml 1161 ml Tube Feeding 399 ml 136 ml Output Urine Total 1000 ml 850 ml # Voids 3 # Bowel Movements 0 0 Laboratory Laboratory Tests Test 03/16/17 03/16/17 03:49 11:11 Sodium Level 141 Potassium Level 4.5 Chloride Level 110 Carbon Dioxide Level 20.4 Anion Gap 11 Blood Urea Nitrogen 7 Creatinine 0.98 Estimat Glomerular Filtration 63 Rate Random Glucose 95 Calcium Level 8.8 Magnesium Level 1.5 Follicle Stimulating Hormone 5.4 Luteinizing Hormone 0.8 Imaging Last Impressions Abdomen X-Ray 03/12/17 0600 Signed Impressions: Service Date/Time: Sunday, March 12, 2017 04:04 - CONCLUSION: Gaseous distention and bowel loops, slightly improved. Clayton F. Tocci, MD Gastrostomy Tube Placement 03/10/17 0000 Signed Impressions: Service Date/Time: Friday, March 10, 2017 11:00 - CONCLUSION: Uncomplicated gastrojejunostomy tube placement as above. Vic Williamson Jr., MD Chest X-Ray 03/08/171921 Signed Impressions: Service Date/Time: Wednesday, March 08, 2017 19:34 - CONCLUSION: No acute disease. Kane Tejeda MD Abdomen/Pelvis CT 03/08/171921 Signed Impressions: Service Date/Time: Wednesday, March 08, 2017 21:28 - CONCLUSION: 1. Abnormal bowel gas pattern which may represent an ileus or gastroenteritis. Obstruction is less likely. 2. Small amount of fluid is again noted in the pelvis. Kane Tejeda MD Physical Exam HEENT: EOMI; normocephalic; atraumatic; no jaundice. CHEST: Chest is clear to auscultation and percussion. CARDIAC: Regular rate and rhythm with no murmur gallop or rubs. ABDOMEN: lower abd soft, nontender; no hepatosplenomegaly; bowel sounds are present in all four quadrants, GJ dressing clean. EXTREMITIES: No clubbing, cyanosis, or edema. SKIN: Normal; no rash; no jaundice. COLD HEADER OPERATOR: No focal deficits; alert and oriented times three. (Mari Pérez [facility]) Assessment and Plan Plan ASSESSMENT: - weight loss - pt states she "has gastroparesis and cannot absorb nutrients" and has lost 150 lbs in last year and a half. GI consulted for PEG placement - gastroparesis - s/p GJ tube placement by IR. pt unaware of having GES, says diagnosis came from endoscopy. Pt did ok with full liquids, will advance diet. TF @ 40cc/hr adn pt tolerating. Nutrition Recommends Vital 1.5 via J-tube, start at 20 ml/hr, increase as tolerated 10 mls q 4 hrs until goal rate of 60 ml/hr is reached. - abdominal pain - + BM this mornign but scant and hard. Miralax prn constipation. KUB 03-12-17 ---> Gaseous distention and bowel loops, slightly improved. KUB (03/11/17) Multiple dilated small bowel loops again seen KUB 03-09-17 --> Persistent abnormally dilated small bowel with little distal gas and colon gas visualized. Differential diagnosis remains ileus versus distal small bowel obstruction. Consider followup imaging to assess for change. CT 03-08-17 --> 1. Abnormal bowel gas pattern which may represent an ileus or gastroenteritis. Obstruction is less likely. 2. Small amount of fluid is again noted in the pelvis. Pt claims to have hx fecal impaction and need for disimpaction. PLAN: - ELIZABETH - continue increasing TF small increments to reach goal - miralax prn constipation - Supportive care - ok to d/c from GI standpoint if pt tolerating TF This pt seen by myself and DR Charles and this note is written on her behalf. ( Mari Pérez) Mari Pérez March 16, 2017 12:53 Aliyah Charles MD March 16, 2017 18:44
[2017-03-16] MEDS ORDERED: BISACODYL EC 5 MG TABEC PO ONE (13:00)
[2017-03-16] MEDS: PANTOPRAZOLE SODIUM 40 MG VIAL IV PUSH SCH (21:09)
[2017-03-16] MEDS: SODIUM CHLORIDE 0.9% FLUSH 10 ML FLUSH IV FLUSH PRN ×2 (21:10→22:49)
[2017-03-17] VITALS (7 sets, daily range): BP systolic 97–133; BP diastolic 60–91; PULSE 84–101; RESP 16–17; TEMP 95–99.7; O2SAT 96–100
[2017-03-17] MEDS: SODIUM CHLOR 0.9% 1000 ML INJ 1,000 ML IV SCH ×2 (04:57→16:49)
[2017-03-17] MEDS: SUCRALFATE 1 GM/10 ML CUP PEG SCH ×4 (04:59→20:46)
[2017-03-17] MEDS: DIAZEPAM 5 MG TAB PEG PRN ×3 (04:59→23:04)
[2017-03-17] MEDS: MORPHINE SULFATE 4 MG/ML INJ IV PUSH PRN ×4 (05:00→23:04)
[2017-03-17] MEDS: HEPARIN SODIUM - SQ 10,000 UNITS/ML VIAL SQ SCH ×3 (05:00→23:05)
[2017-03-17] MEDS: POLYETHYLENE GLYCOL 17 GM PKG G-TUBE PRN (05:00)
[2017-03-17 05:40] LABS: BICARBONATE 24.5 MEQ/L (21.0-32.0); MAGNESIUM 1.7 MG/DL (1.5-2.5); POTASSIUM 4.2 MEQ/L (3.5-5.1)
[2017-03-17] MEDS: SODIUM CHLORIDE 0.9% FLUSH 10 ML FLUSH IV FLUSH SCH ×2 (08:01→20:47)
[2017-03-17] MEDS: MAGNESIUM OXIDE 400 MG TAB PEG SCH ×3 (08:01→16:49)
--- NOTE | 2017-03-17 10:37 | HHI.PR ---
Subjective Remarks f/u for GJ and abdominal pain complaints about the same abdominal pain but has improved. tolerating continuous feeds up to 50 cc/hr. patient fell down on knees last night. Did not hit head or have any LOC. Denied any N/V Objective Vitals Vital Signs Date Time Temp Pulse Resp B/P Pulse Ox O2 Delivery O2 Flow Rate FiO2 03/17/17 08:00 97.1 86 16 133/91 99 03/17/17 04:00 96.1 84 17 121/84 100 03/17/17 00:00 97.8 101 17 101/72 98 03/16/17 23:00 78 03/16/17 21:28 21 03/16/17 20:00 97.8 110 17 105/65 98 03/16/17 19:00 98 Room Air 03/16/17 18:52 96.7 80 21 101/87 95 03/16/17 16:00 98.0 85 18 107/72 98 03/16/17 12:00 98.7 95 17 102/69 96 I/O 03/16/17 03/16/17 03/16/17 03/17/17 03/17/17 03/17/17 07:00 15:00 23:00 07:00 15:00 23:00 Intake Total 1537 ml 500 ml 480 ml 240 ml Output Total 850 ml 600 ml Balance 687 ml -100 ml 480 ml 240 ml Intake Oral 240 ml 500 ml 480 ml 240 ml IV Total 1161 ml Tube Feeding 136 ml Output Urine Total 850 ml 600 ml # Voids 2 3 # Bowel Movements 0 0 Result Diagram: 03/17/17 0324 Objective Remarks GENERAL: in NAD and sitting comfortable in bed. SKIN: Warm and dry. HEAD: Normocephalic. BREAST: + mild discharge B/L when compressing nipples. No mass or lesions noted. breast are symmetrical. no axillary lymphadenopathy. EYES: No scleral icterus. No injection or drainage. NECK: Supple, trachea midline. No JVD or lymphadenopathy. CARDIOVASCULAR: Regular rate and rhythm without murmurs, gallops, or rubs. RESPIRATORY: Breath sounds equal bilaterally. No accessory muscle use. GASTROINTESTINAL: Abdomen soft, + diffuse TTP but no peritoneal signs. When I' m palpating she stated that she is in pain but shows no grimaces. GJ tube is in place. No infection noted. Medications and IVs Current Medications Sodium Chloride (NS Flush) 2 ml UNSCH PRN IV FLUSH FLUSH AFTER USING IV ACCESS ; Start 03/08/17 at 19:30; Stop 03/08/17 at 22:15; Status DC Sodium Chloride 2 ml 2 ml UNSCH PRN IVF FLUSH AFTER USING IV ACCESS; Start 03/08 at 21:00; Stop 03/08/17 at 22:15; Status DC Potassium Chloride/Sodium Chloride (NS + KCl 40 Meq Inj) 1,000 ml @ 100 mls/hr Q10H IV Last administered on 03/09/17 09:16; Start 03/08/17 at 21:45; Stop at 13:42; Status DC Ondansetron HCl (Zofran Inj) 4 mg ONCE ONCE IV PUSH Last administered on 22:13; Start 03/08/17 at 22:00; Stop 03/08/17 at 22:01; Status DC Morphine Sulfate (Morphine Inj) 2 mg ONCE ONCE IV PUSH Last administered on 22:14; Start 03/08/17 at 22:00; Stop 03/08/17 at 22:01; Status DC Sodium Chloride (NS Flush) 2 ml UNSCH PRN IV FLUSH FLUSH AFTER USING IV ACCESS Last administered on 03/16/17 22:49; Start 03/08/17 at 22:00 Sodium Chloride (NS Flush) 2 ml BID IV FLUSH Last administered on 03/16/17 21: 10; Start 03/09/17 at 09:00 Ondansetron HCl (Zofran Inj) 4 mg Q6H PRN IVP NAUSEA OR VOMITING Last administered on 03/15/17 05:05; Start 03/08/17 at 22:00 Naloxone HCl (Narcan Inj) 0.4 mg UNSCH PRN IV SEE LABEL COMMENTS; Start at 22:00 Potassium Chloride 40 meq 40 meq ONCE ONCE PO Last administered on 03/08/17 22 :28; Start 03/08/17 at 22:15; Stop 03/08/17 at 22:16; Status DC Potassium Chloride (KCl 20 Meq Premix Inj) 100 ml @ 50 mls/hr Q2H IV Last administered on 03/09/17 00:15; Start 03/08/17 at 22:15; Stop 03/09/17 at 02:14; Status DC Cholecalciferol (Vitamin D3) 20,000 units Q3D PO Last administered on 03/12/17 08:32; Start 03/09/17 at 09:00 Pantoprazole Sodium (Protonix) 40 mg DAILY@06 PO ; Start 03/10/17 at 06:00; Stop 03/10/17 at 20:46; Status DC Sucralfate (Carafate Liq) 1 gm ACHS PO Last administered on 03/09/17 10:58; Start 03/09/17 at 07:00; Stop 03/11/17 at 08:15; Status DC Pantoprazole Sodium (Protonix Inj) 80 mg ONCE ONCE IV PUSH ; Start 03/09/17 at 02:00; Stop 03/09/17 at 02:01; Status Cancel Morphine Sulfate 2 mg 2 mg Q6HR PRN IV PUSH PAIN >5 Last administered on 05:00; Start 03/09/17 at 02:00 Pantoprazole Sodium/Sodium Chloride (Protonix Inj/NS Inj) 35 ml @ 420 mls/hr ONCE ONCE IV Last administered on 03/09/17 02:59; Start 03/09/17 at 02:15; Stop 03/09/17 at 02:19; Status DC Potassium Chloride 40 meq 40 meq ONCE ONCE PO Last administered on 03/09/17 03 :00; Start 03/09/17 at 02:30; Stop 03/09/17 at 02:31; Status DC Potassium Chloride (KCl 20 Meq Premix Inj) 100 ml @ 50 mls/hr Q2H IV Last administered on 03/09/17 06:12; Start 03/09/17 at 02:30; Stop 03/09/17 at 06:29; Status DC Heparin Sodium (Porcine) 5000 units 5,000 units Q8HR SQ Last administered on 05:00; Start 03/09/17 at 06:00 Potassium Chloride (KCl 20 Meq Premix Inj) 100 ml @ 50 mls/hr Q2H IV Last administered on 03/09/17 10:58; Start 03/09/17 at 08:30; Stop 03/09/17 at 12:29; Status DC Potassium Chloride (KCl) 40 meq ONCE ONCE PO Last administered on 03/09/17 09: 15; Start 03/09/17 at 08:30; Stop 03/09/17 at 09:01; Status DC Metoclopramide HCl (Reglan Inj) 10 mg Q8H PRN IV PUSH nausea Last administered on 03/14/17 00:07; Start 03/09/17 at 08:30 Potassium Chloride (KCl) 40 meq TID PO ; Start 03/09/17 at 18:00; Stop 03/11/17 at 08:21; Status DC Potassium Phosphate (K-Phos) 1,000 mg DAILY PO Last administered on 03/09/17 17 :11; Start 03/09/17 at 13:15; Stop 03/11/17 at 08:15; Status DC Magnesium Oxide 400 mg 400 mg Q12HR PO ; Start 03/09/17 at 21:00; Stop 03/11/17 at 08:15; Status DC Sodium Chloride 1,000 ml @ 125 mls/hr Q8H IV ; Start 03/09/17 at 16:15; Stop 03/09/17 at 21:55; Status DC Sodium Chloride 500 ml @ 500 mls/hr BOLUS ONCE IV ; Start 03/09/17 at 16:15; Stop 03/09/17 at 17:14; Status DC Potassium Chloride 100 ml @ 100 mls/hr Q1H IV Last administered on 03/09/17 21 :52; Start 03/09/17 at 17:00; Stop 03/09/17 at 19:59; Status DC Potassium Chloride 100 ml @ 50 mls/hr Q2H IV ; Start 03/09/17 at 21:30; Stop 03/09/17 at 21:30; Status DC Sodium Chloride 1,000 ml @ 125 mls/hr Q8H IV Last administered on 03/17/17 04 :57; Start 03/09/17 at 22:00 Potassium Chloride 100 ml @ 50 mls/hr Q2H IV Last administered on 03/10/17 10: 43; Start 03/10/17 at 09:00; Stop 03/10/17 at 12:59; Status DC Levofloxacin/ Dextrose (Levaquin 500 Mg Premix Inj) 100 ml @ As Directed STK- MED ONCE IV ; Start 03/10/17 at 11:02; Stop 03/10/17 at 11:03; Status DC Diphenhydramine HCl (Benadryl Inj) 50 mg STK-MED ONCE .ROUTE ; Start 03/10/17 at 11:25; Stop 03/10/17 at 11:26; Status DC Glucagon (Glucagon Inj) 1 mg STK-MED ONCE .ROUTE Last administered on 03/10/17 11:33; Start 03/10/17 at 11:33; Stop 03/10/17 at 11:34; Status DC Iohexol (Omnipaque 300 Inj) 40 ml STK-MED ONCE G-TUBE ; Start 03/10/17 at 12:26; Stop 03/10/17 at 12:27; Status DC Iohexol (Omnipaque 350 Inj) 40 ml STK-MED ONCE G-TUBE Last administered on 12:30; Start 03/10/17 at 12:30; Stop 03/10/17 at 12:31; Status DC Miscellaneous Information ALL NURSING DEPARTME... UNSCH PRN .XX SEE LABEL COMMENTS; Start 03/10/17 at 12:35; Stop 03/11/17 at 12:34; Status DC Morphine Sulfate (*morphine INJ PERIprocedure ONLY) 8 mg STK-MED ONCE .ROUTE Last administered on 03/10/17 13:01; Start 03/10/17 at 13:01; Stop 03/10/17 at 13: 02; Status DC Fentanyl Citrate (fentaNYL INJ) 250 mcg STK-MED ONCE .ROUTE ; Start 03/10/17 at 13:11; Stop 03/10/17 at 13:12; Status DC Morphine Sulfate (Morphine Inj) 4 mg STK-MED ONCE .ROUTE ; Start 03/10/17 at 13: 12; Stop 03/10/17 at 13:13; Status DC Magnesium Citrate (Citroma Liq) 300 ml ONCE ONCE PO Last administered on 15:24; Start 03/10/17 at 15:00; Stop 03/10/17 at 15:08; Status DC Diazepam (Valium) 5 mg Q12HR PRN PEG ANXIETY Last administered on 03/11/17 08: 24; Start 03/10/17 at 15:30; Stop 03/11/17 at 15:57; Status DC Pantoprazole Sodium 40 mg 40 mg Q24H IV PUSH Last administered on 03/16/17 21: 09; Start 03/10/17 at 21:00 Potassium Chloride (KCl 20 Meq Premix Inj) 100 ml @ 50 mls/hr Q2H IV Last administered on 03/11/17 01:00; Start 03/10/17 at 21:00; Stop 03/11/17 at 02:59; Status DC Lorazepam 0.5 mg 0.5 mg ONCE ONCE IV PUSH Last administered on 03/10/17 21:36 ; Start 03/10/17 at 21:15; Stop 03/10/17 at 21:24; Status DC Potassium Chloride (KCl 20 Meq Premix Inj) 100 ml @ 50 mls/hr Q2H IV Last administered on 03/11/17 10:15; Start 03/11/17 at 08:15; Stop 03/11/17 at 12:14; Status DC Magnesium Oxide (Mag-Ox) 400 mg Q12H PEG Last administered on 03/15/17 20:37; Start 03/11/17 at 11:00; Stop 03/16/17 at 09:17; Status DC Potassium Phosphate (K-Phos) 1,000 mg DAILY PEG Last administered on 03/14/17 07:48; Start 03/11/17 at 09:00; Status Hold Sucralfate (Carafate Liq) 1 gm ACHS PEG Last administered on 03/17/17 04:59; Start 03/11/17 at 11:00 Potassium Bicarb/ Potassium Chloride (K-Lyte Cl Eff) 25 meq TID PEG Last administered on 03/15/17 17:13; Start 03/11/17 at 09:00; Status Hold Diazepam (Valium) 5 mg Q8HR PRN PEG ANXIETY Last administered on 03/17/17 04: 59; Start 03/11/17 at 16:00 Potassium Chloride 40 meq 40 meq ONCE ONCE PO Last administered on 03/12/17 06 :43; Start 03/12/17 at 06:30; Stop 03/12/17 at 06:31; Status DC Potassium Chloride 100 ml @ 50 mls/hr Q2H IV Last administered on 03/12/17 08: 30; Start 03/12/17 at 06:30; Stop 03/12/17 at 10:29; Status DC Potassium Chloride 100 ml @ 50 mls/hr Q2H IV Last administered on 03/12/17 10: 15; Start 03/12/17 at 08:15; Stop 03/12/17 at 12:14; Status DC Magnesium Sulfate/ Dextrose (Magnesium Sulfate 1 Gm Premix) 100 ml @ 100 mls/ hr Q1H IV Last administered on 03/12/17 09:15; Start 03/12/17 at 08:15; Stop 03/12/17 at 10:14; Status DC Propofol (Diprivan 200 Mg/20 ml Inj) 20 mg STK-MED ONCE IV ; Start 03/10/17 at 08:32; Stop 03/13/17 at 08:32; Status DC Ondansetron HCl (Zofran Inj) 4 mg STK-MED ONCE IV PUSH ; Start 03/10/17 at 08:32 ; Stop 03/13/17 at 08:32; Status DC Lactated Ringer's 1000 ml 1,000 ml STK-MED ONCE IV ; Start 03/10/17 at 08:32; Stop 03/13/17 at 08:32; Status DC Potassium Chloride 100 ml @ 100 mls/hr Q1H IV Last administered on 03/13/17 18 :23; Start 03/13/17 at 15:00; Stop 03/13/17 at 17:59; Status DC Magnesium Sulfate/ Dextrose (Magnesium Sulfate 1 Gm Premix) 100 ml @ 100 mls/ hr Q1H IV Last administered on 03/14/17 14:23; Start 03/14/17 at 13:15; Stop 03/14/17 at 15:14; Status DC Polyethylene Glycol (Miralax) 17 gm UNSCH PRN G-TUBE CONSTIPATION; Start at 16:00; Stop 03/16/17 at 12:53; Status DC Potassium Chloride (KCl) 30 meq ONCE ONCE PO Last administered on 03/14/17 17: 10; Start 03/14/17 at 16:45; Stop 03/14/17 at 16:46; Status DC Potassium Chloride (KCl) 30 meq ONCE ONCE PO Last administered on 03/14/17 20: 35; Start 03/14/17 at 21:00; Stop 03/14/17 at 21:01; Status DC Magnesium Oxide 400 mg 400 mg TID PEG Last administered on 03/17/17 08:01; Start 03/16/17 at 13:00 Magnesium Sulfate/ Dextrose (Magnesium Sulfate 1 Gm Premix) 100 ml @ 100 mls/ hr ONCE ONCE IV Last administered on 03/16/17 10:03; Start 03/16/17 at 09:15 ; Stop 03/16/17 at 10:14; Status DC Polyethylene Glycol (Miralax) 17 gm DAILY PRN G-TUBE CONSTIPATION Last administered on 03/17/17 05:00; Start 03/16/17 at 12:39 Bisacodyl (Dulcolax Ec) 5 mg ONCE ONCE PO Last administered on 03/16/17 14:21 ; Start 03/16/17 at 13:00; Stop 03/16/17 at 13:01; Status DC A/P Problem List: (1) Hypokalemia ICD Code: E87.6 Status: Resolved Assessment and Plan Chronic hypokalemia -Patient was worked up as outpatient per diagnosis with patient. -No events over telemetry. -Patient able to tolerate by PO intake. -Initially aggressive replenished K and M but now normal. -Magnesium and potassium are within normal limits. Continue with current replacement. -K continues to be stable without any supplements for 2 days. continue with Mg to 400 mg TID Weight loss secondary to questionable gastroparesis status post PEG -Nutrition consulted and recommended vital 1.5 started at 20 cc/h decreased 10 mL's every 4 hours as tolerated to a goal of 60 cc/h. -unsure why she is on continuous feeds when she is tolerating PO intake., d/w GI in regards to this. I reconsulted thread pulling machine attendant because patient should have bolus feed when she cannot tolerate PO intake. Acute renal failure -Resolved. -Secondary to dehydration. - on IV fluids. -Avoid nephrotoxins. Anxiety Disorder -on Diazepam -LH and FSH WNL. -prolactin elevated. will repeat. -? medication induced -no signs of prolactinoma DVT prophylaxis - Heparin 5000 units subq q8h Discharge Planning patient should be on bolus feeds. Reconsult thread pulling machine attendant and d/w GI. Once regimen is determine need to write script for TFs. Annette Marcelo MD March 17, 2017 10:37
--- NOTE | 2017-03-17 13:48 | HHI.GIFU ---
Subjective Remarks Sitting on side of bed. States she is feeling much better. States that she tolerated the low residue diet and would like this advanced to a regular diet. D/W patient how she would benefit more from a low residue diet with her gastroparesis. No nausea, but states she does get this at times at home. Reports that she is lactating today and the primary team is working this up. She also reports that her vaginal bleeding has stopped, but whenever she has constipation, this usually starts up again. She has not had a bowel movement since 03/13. (Oneida Fraga) Objective Vitals I&O Vital Signs Date Time Temp Pulse Resp B/P Pulse Ox O2 Delivery O2 Flow Rate FiO2 03/17/17 09:10 97 21 03/17/17 08:00 97.1 86 16 133/91 99 03/17/17 04:00 96.1 84 17 121/84 100 03/17/17 00:00 97.8 101 17 101/72 98 03/16/17 23:00 78 03/16/17 21:28 21 03/16/17 20:00 97.8 110 17 105/65 98 03/16/17 19:00 98 Room Air 03/16/17 18:52 96.7 80 21 101/87 95 03/16/17 16:00 98.0 85 18 107/72 98 I/O 03/16/17 03/16/17 03/16/17 03/17/17 03/17/17 03/17/17 07:00 15:00 23:00 07:00 15:00 23:00 Intake Total 1537 ml 500 ml 480 ml 240 ml Output Total 850 ml 600 ml Balance 687 ml -100 ml 480 ml 240 ml Intake Oral 240 ml 500 ml 480 ml 240 ml IV Total 1161 ml Tube Feeding 136 ml Output Urine Total 850 ml 600 ml # Voids 2 3 # Bowel Movements 0 0 Laboratory Laboratory Tests Test 03/17/17 03:24 Sodium Level 139 Potassium Level 4.2 Chloride Level 107 Carbon Dioxide Level 24.5 Anion Gap 8 Blood Urea Nitrogen 12 Creatinine 1.24 Estimat Glomerular Filtration 48 Rate Random Glucose 86 Calcium Level 8.4 Phosphorus Level 5.2 Magnesium Level 1.7 Imaging Last Impressions Abdomen X-Ray 03/12/17 0600 Signed Impressions: Service Date/Time: Sunday, March 12, 2017 04:04 - CONCLUSION: Gaseous distention and bowel loops, slightly improved. Clayton Leonard MD Gastrostomy Tube Placement 03/10/17 0000 Signed Impressions: Service Date/Time: Friday, March 10, 2017 11:00 - CONCLUSION: Uncomplicated gastrojejunostomy tube placement as above. Vic Williamson Jr., MD Chest X-Ray 03/08/171921 Signed Impressions: Service Date/Time: Wednesday, March 08, 2017 19:34 - CONCLUSION: No acute disease. Kane Tejeda MD Abdomen/Pelvis CT 03/08/171921 Signed Impressions: Service Date/Time: Wednesday, March 08, 2017 21:28 - CONCLUSION: 1. Abnormal bowel gas pattern which may represent an ileus or gastroenteritis. Obstruction is less likely. 2. Small amount of fluid is again noted in the pelvis. Kane Tejeda MD Physical Exam HEENT: Normocephalic; atraumatic CARDIAC: RRR ABDOMEN: Abd soft, mild LLQ tendernesis, no hepatosplenomegaly; bowel sounds are present in all four quadrants, GJ dressing clean. EXTREMITIES: No clubbing, cyanosis, or edema. SKIN: Normal; no rash; no jaundice. PROCEDURE TECH: No focal deficits; alert and oriented times three. (Oneida FragaP) Assessment and Plan Plan ASSESSMENT: - Gastroparesis/weight loss. Pt c/o not being able to absorb nutrients secondary to her gastroparesis and has lost 150 lbs over hte past year. S/P G/J tube placement. She is tolerating night time feedings. She is also tolerating a low residue diet at this point. Would recommend continuing low residue diet and slow bolus feedings of Vital 1.5 TID as needed when she is not able to take po. At this point, she is tolerating her po diet. Recommend this as tolerated. Okay to d/c home. She can use bolus feedings as needed- no need for continuous feedings at this time, as she is tolerating po. Recommend soft diet, small frequent meals, chewing food well, small bites. May connect G tube to drainage bag as needed for decompression. - Abdominal pain. Improved. - Constipation. Last BM 03/13. Miralax. Lactulose x 1. PLAN: - Okay to d/c home from GI standpoint - Low residue diet- soft diet - Small frequent meals - Chew food well - Small bites - May connect G tube to drainage bag to gravity as needed for decompression - May use slow bolus feedings of Vital 1.5 TID as needed when she is not able to take po. - Miralax 17 gram po daily - FU RAMESH 2 weeks - GI will sign off, please reconsult as needed - This pt seen by myself and DR Charles and this note is written on her behalf. (Oneida Fraga) Oneida Fraga March 17, 2017 13:48 Aliyah Charles MD March 17, 2017 17:57
[2017-03-17] MEDS ORDERED: LACTULOSE SYRUP 20 GM/30 ML CUP PO ONE (15:00)
[2017-03-17] MEDS: PANTOPRAZOLE SODIUM 40 MG VIAL IV PUSH SCH (20:46)
[2017-03-18] VITALS (8 sets, daily range): BP systolic 89–124; BP diastolic 54–69; PULSE 72–87; RESP 16–17; TEMP 97.8–98.6; O2SAT 97–100
[2017-03-18] MEDS: SODIUM CHLOR 0.9% 1000 ML INJ 1,000 ML IV SCH ×4 (01:55→21:36)
[2017-03-18] MEDS ORDERED: ACETAMINOPHEN/HYDROcodone 325 MG/5 MG TAB PO ONE (03:30)
[2017-03-18] MEDS: SUCRALFATE 1 GM/10 ML CUP PEG SCH ×4 (05:05→21:23)
[2017-03-18] MEDS: HEPARIN SODIUM - SQ 10,000 UNITS/ML VIAL SQ SCH ×3 (05:06→21:38)
[2017-03-18 07:27] LABS: BICARBONATE 25.4 MEQ/L (21.0-32.0); MAGNESIUM 1.8 MG/DL (1.5-2.5); POTASSIUM 3.7 MEQ/L (3.5-5.1)
[2017-03-18] MEDS: DIAZEPAM 5 MG TAB PEG PRN ×2 (07:44→15:45)
[2017-03-18] MEDS: MAGNESIUM OXIDE 400 MG TAB PEG SCH ×3 (07:44→15:46)
[2017-03-18] MEDS: CHOLECALCIFEROL (VIT D3) 5000 UNIT CAP PO SCH (07:45)
[2017-03-18] MEDS: POLYETHYLENE GLYCOL 17 GM PKG G-TUBE PRN (07:46)
[2017-03-18] MEDS: SODIUM CHLORIDE 0.9% FLUSH 10 ML FLUSH IV FLUSH SCH ×2 (07:47→21:00)
[2017-03-18] MEDS: ONDANSETRON HCL 4 MG/2 ML VIAL IVP PRN (10:31)
[2017-03-18] MEDS: MORPHINE SULFATE 4 MG/ML INJ IV PUSH PRN ×2 (11:04→17:38)
--- NOTE | 2017-03-18 13:55 | HHI.PR ---
Subjective Remarks Follow-up chronic hypokalemia/abdominal pain 03/18/17-patient seen and examined, denies any significant abdominal pain. Complains of constipation times several day duration. Tolerated by mouth. Objective Vitals Vital Signs Date Time Temp Pulse Resp B/P Pulse Ox O2 Delivery O2 Flow Rate FiO2 03/18/17 12:00 97.8 87 17 103/59 97 03/18/17 08:00 98.4 74 17 108/69 98 03/18/17 07:50 Room Air 03/18/17 04:00 97.9 75 17 96/55 100 03/18/17 00:00 98.6 72 17 124/68 98 03/17/17 20:00 98.3 85 17 119/72 98 03/17/17 16:00 95.0 89 17 97/60 99 I/O 03/17/17 03/17/17 03/17/17 03/18/17 03/18/17 03/18/17 07:00 15:00 23:00 07:00 15:00 23:00 Intake Total 240 ml 2190 ml 240 ml 970 ml Output Total 2500 ml Balance 240 ml 2190 ml 240 ml -1530 ml Intake Oral 240 ml 1440 ml 240 ml 240 ml IV Total 750 ml 580 ml Other 150 ml Output Urine Total 2500 ml # Voids 3 4 2 # Bowel Movements 0 Result Diagram: 03/18/17 0500 Imaging Last Impressions Abdomen X-Ray 03/12/17 0600 Signed Impressions: Service Date/Time: Sunday, March 12, 2017 04:04 - CONCLUSION: Gaseous distention and bowel loops, slightly improved. Clayton Leonard MD Gastrostomy Tube Placement 03/10/17 0000 Signed Impressions: Service Date/Time: Friday, March 10, 2017 11:00 - CONCLUSION: Uncomplicated gastrojejunostomy tube placement as above. Vic Williamson Jr., MD Chest X-Ray 03/08/171921 Signed Impressions: Service Date/Time: Wednesday, March 08, 2017 19:34 - CONCLUSION: No acute disease. Kane Tejeda MD Abdomen/Pelvis CT 03/08/171921 Signed Impressions: Service Date/Time: Wednesday, March 08, 2017 21:28 - CONCLUSION: 1. Abnormal bowel gas pattern which may represent an ileus or gastroenteritis. Obstruction is less likely. 2. Small amount of fluid is again noted in the pelvis. Kane Tejeda MD Objective Remarks GENERAL: NAD SKIN: Warm and dry. HEAD: Normocephalic. EYES: No scleral icterus. No injection or drainage. NECK: Supple, trachea midline. No JVD or lymphadenopathy. CARDIOVASCULAR: Regular rate and rhythm without murmurs, gallops, or rubs. RESPIRATORY: Breath sounds equal bilaterally. No accessory muscle use. GASTROINTESTINAL: Abdomen soft, non-tender, nondistended. GJ tube in place MUSCULOSKELETAL: No cyanosis, or edema. BACK: Nontender without obvious deformity. No CVA tenderness. Procedures GJ tube placement A/P Problem List: (1) Hypokalemia ICD Code: E87.6 Status: Resolved (2) Intractable nausea and vomiting ICD Code: R11.2 Status: Resolved (3) Constipation by delayed colonic transit ICD Code: K59.01 Status: Acute Assessment and Plan 41-year-old female with Chronic hypokalemia -Patient was worked up as outpatient per diagnosis with patient. -Initially aggressive replenished K and M but now normal. -Magnesium and potassium are within normal limits. Continue with current replacement. -continue with Mg to 400 mg TID Weight loss secondary to questionable gastroparesis status post PEG -Nutrition consulted and recommended vital 1.5 started at 20 cc/h decreased 10 mL's every 4 hours as tolerated to a goal of 60 cc/h. Or slow bolus feeds 240ml x3/day Acute renal failure -Resolved with IV fluid hydration and avoid all nephrotoxic drugs Anxiety Disorder -on Diazepam -LH and FSH WNL. -prolactin elevated. Repeat outpatient. -? medication induced -no signs of prolactinoma DVT prophylaxis - Heparin 5000 units subq q8h Clayton Gill MD March 18, 2017 13:55
[2017-03-18] MEDS ORDERED: SUCR1S PEG (13:59)
[2017-03-18] MEDS ORDERED: KLYTECL PEG (13:59)
[2017-03-18] MEDS ORDERED: POLY17S G-TUBE (13:59)
[2017-03-18] MEDS ORDERED: DIAZ5 PEG (13:59)
[2017-03-18] MEDS ORDERED: MAGN400T3 PEG (13:59)
[2017-03-18] MEDS ORDERED: NUTR-189 J-TUBE (14:08)
--- NOTE | 2017-03-18 14:10 | HHI.DS ---
Discharge Summary Admission Date March 08, 2017 at 22:08 Discharge Date: March 18, 2017 Admitting Diagnosis acute renal insufficiency, hypokalemia (1) Hypokalemia ICD Code: E87.6 Diagnosis: Principal (2) Intractable nausea and vomiting ICD Code: R11.2 (3) Constipation by delayed colonic transit ICD Code: K59.01 Procedures GJ tube placement Brief History - From Admission Ms. Hernandez is a 41-year-old female who was discharged from January 18, 2017 from March nearly 3 week hospitalization for renal failure and hypokalemia who presented to the emergency room on 03/08/2017 complaining of abdominal pain, dizziness, and palpitations which are symptoms she typically experiences with hypokalemia. The patient is seen in the emergency room. She reports the following: Over the past two years, she has lost 150 pounds, lost hair, and lost teeth Has a history of: low potassium gastroparesis esophagitis GI ulcers Reports: palpitations, dizziness, sharp pain "everywhere" over the past few days, getting progressively worse and not improving with foods high in potassium. She reports white spots on face just started 03/08/17. Abdominal pain - sharp in quality - started yesterday. Today felt a knot in left lower quadrant and then it went away and then came back; vomiting 3 - 4 times; no black or red vomit. Again, these are symptoms she typically experiences with her potassium as well. States she's had some red blood with stool in toilet bowl and when she wipes. No history of polyps - colonoscopy in January. Hemorrhoids in past have resolved to the best of her knowledge. Dr. Andrade in [place] - neurologist . CBC/BMP: 03/18/17 0500 Significant Findings Laboratory Tests Test 03/16/17 03/16/17 03/17/17 03/18/17 03:49 11:11 03:24 05:00 Chloride Level 110 MEQ/L 108 MEQ/L (98-107) (98-107) Carbon Dioxide Level 20.4 MEQ/L (21.0-32.0) Estimat Glomerular Filtration 63 ML/MIN (>89) 48 ML/MIN (>89) 69 ML/MIN (>89) Rate Prolactin 34 ng/mL (4.8 - 23.3) Creatinine 1.24 MG/DL (0.50-1.00) Calcium Level 8.4 MG/DL 8.4 MG/DL (8.5-10.1) (8.5-10.1) Phosphorus Level 5.2 MG/DL (2.5-4.9) Imaging Last Impressions Abdomen X-Ray 03/12/17 0600 Signed Impressions: Service Date/Time: Sunday, March 12, 2017 04:04 - CONCLUSION: Gaseous distention and bowel loops, slightly improved. Clayton Leonard MD Gastrostomy Tube Placement 03/10/17 0000 Signed Impressions: Service Date/Time: Friday, March 10, 2017 11:00 - CONCLUSION: Uncomplicated gastrojejunostomy tube placement as above. Vic Williamson Jr., MD Chest X-Ray 03/08/171921 Signed Impressions: Service Date/Time: Wednesday, March 08, 2017 19:34 - CONCLUSION: No acute disease. Kane Tejeda MD Abdomen/Pelvis CT 03/08/171921 Signed Impressions: Service Date/Time: Wednesday, March 08, 2017 21:28 - CONCLUSION: 1. Abnormal bowel gas pattern which may represent an ileus or gastroenteritis. Obstruction is less likely. 2. Small amount of fluid is again noted in the pelvis. Kane Tejeda MD PE at Discharge GENERAL: NAD SKIN: Warm and dry. HEAD: Normocephalic. EYES: No scleral icterus. No injection or drainage. NECK: Supple, trachea midline. No JVD or lymphadenopathy. CARDIOVASCULAR: Regular rate and rhythm without murmurs, gallops, or rubs. RESPIRATORY: Breath sounds equal bilaterally. No accessory muscle use. GASTROINTESTINAL: Abdomen soft, non-tender, nondistended. GJ tube in place MUSCULOSKELETAL: No cyanosis, or edema. BACK: Nontender without obvious deformity. No CVA tenderness. Hospital Course Chronic hypokalemia -Patient was worked up as outpatient per diagnosis with patient. -Initially aggressive replenished K and M but now normal. -Magnesium and potassium are within normal limits. Continue with current replacement. -continue with Mg to 400 mg TID Weight loss secondary to questionable gastroparesis status post PEG -Nutrition consulted and recommended vital 1.5 started at 60 cc/h. Or slow bolus feeds 240ml x3/day Acute renal failure -Resolved with IV fluid hydration and avoid all nephrotoxic drugs Anxiety Disorder -treated with Diazepam -LH and FSH WNL. -prolactin elevated. Repeat outpatient. -? medication induced -no signs of prolactinoma DVT prophylaxis - Heparin 5000 units subq q8h Pt Condition on Discharge: Stable Discharge Disposition: Discharge Home Discharge Time: > 30 minutes Discharge Instructions DIET: Follow Instructions for: On Tube Feeding Activities you can perform: Regular-No Restrictions Follow up Referrals: Gastroenterology - 2 Weeks @ [facility] PCP Follow-up - 1 Week New Orders: PROLACTIN - 3 Weeks New Medications: Nutritional Supplements (Vital 1.5 Jeremiah) 1 Liq Liq 1.5 LITER J-TUBE CONTINUOUS nocturnal feeding @ night through J tube Vital 1.5 @ 60ml/hr x 12hrs. Nutritional Supplement #100 LITER Diazepam (Valium) 5 Mg Tab 5 MG PEG Q8HR PRN ANXIETY #30 TAB Magnesium Oxide (Magnesium Oxide) 241.3 Mg Tab 400 MG PEG TID Electrolyte Replacement #90 Ref 3 TAB Polyethylene Glycol 3350 Powder (Polyethylene Glycol 3350 Powder) 17 Gm Pow 17 GM G-TUBE DAILY PRN CONSTIPATION #100 GM Potassium Bicarb-Chloride Effervescent (Effervescent Potassium Chloride 25 Meq) 25 Meq Tab 25 MEQ PEG TID Electrolyte Replacement #90 Ref 3 TAB Sucralfate Liq (Sucralfate Liq) 1 Gm/10 Ml Bernadette 1 GM PEG ACHS Electrolyte Replacement #100 GM Continued Medications: Cholecalciferol (Vitamin D3) 10,000 Unit Cap 70274 UNITS PO Q3D Nutritional Supplement #1 Ref 0 BOTTLE Magnesium Citrate (Magnesium Citrate) 100 Mg Tab 100 MG PO HS CONSTIPATION Ref 0 TAB Magnesium Oxide (Magnesium Oxide) 241.3 Mg Tab 400 MG PO Q12HR Magnesium #60 TAB Pantoprazole (Pantoprazole) 40 Mg Tab 40 MG PO DAILY Reflux #30 Ref 0 TAB Potassium Chloride Microencaps (Potassium Chloride Microencaps) 20 Meq Tab 40 MEQ PO TID Potassium #90 TAB Potassium Phosphate Monobasic (K-Phos) 500 Mg Tab 1000 MG PO DAILY Phosphate #30 TAB Sucralfate Liq (Sucralfate Liq) 1 Gm/10 Ml Bernadette 1 GM PO ACHS Stomach #1 BOTTLE Discontinued Medications: Ibuprofen (Advil) 200 Mg Tab 200 MG PO QID PRN Ref 0 TAB Prednisone (21) 5 mg tab Dose Pack (Prednisone (21) 5 mg tab Dose Pack) 5 Mg Dspk 5 MG PO DIRECTED Inflammation #1 Ref 0 DSPK Additional Information I spent over 30 minutes going through the discharge disposition with patient Clayton Gill MD March 18, 2017 14:09
[2017-03-18] MEDS ORDERED: PROT40TA PO (14:39)
[2017-03-18] MEDS: PANTOPRAZOLE SODIUM 40 MG VIAL IV PUSH SCH (21:23)
[2017-03-19] VITALS (7 sets, daily range): BP systolic 105–132; BP diastolic 64–90; PULSE 72–99; RESP 16–18; TEMP 97.5–99.5; O2SAT 97–100
[2017-03-19] MEDS: MORPHINE SULFATE 4 MG/ML INJ IV PUSH PRN ×4 (00:05→18:41)
[2017-03-19] MEDS: DIAZEPAM 5 MG TAB PEG PRN ×3 (00:05→16:12)
[2017-03-19] MEDS: SUCRALFATE 1 GM/10 ML CUP PEG SCH ×4 (06:06→20:41)
[2017-03-19] MEDS: SODIUM CHLOR 0.9% 1000 ML INJ 1,000 ML IV SCH ×2 (06:06→16:12)
[2017-03-19] MEDS: HEPARIN SODIUM - SQ 10,000 UNITS/ML VIAL SQ SCH ×3 (06:08→21:36)
[2017-03-19] MEDS: MAGNESIUM OXIDE 400 MG TAB PEG SCH ×3 (08:14→16:12)
[2017-03-19] MEDS: SODIUM CHLORIDE 0.9% FLUSH 10 ML FLUSH IV FLUSH SCH ×2 (08:15→20:41)
--- NOTE | 2017-03-19 09:15 | HHI.PR ---
Subjective Remarks Follow-up chronic hypokalemia/abdominal pain 03/18/17-patient seen and examined, denies any significant abdominal pain. Complains of constipation times several day duration. Tolerated by mouth. 03/19/17-patient seen and examined, no acute event overnight. Tolerated by mouth as well as tube feed. Case discussed with case operator regarding discharge disposition. Objective Vitals Vital Signs Date Time Temp Pulse Resp B/P Pulse Ox O2 Delivery O2 Flow Rate FiO2 03/19/17 08:00 97.9 80 17 132/90 100 03/19/17 04:00 98.0 76 16 110/68 99 03/19/17 00:00 98.1 82 16 131/65 99 03/18/17 22:00 82 03/18/17 20:00 98.3 83 16 99/58 98 03/18/17 17:37 83 105/65 03/18/17 16:00 98.0 82 16 89/54 97 03/18/17 12:00 97.8 87 17 103/59 97 I/O 03/18/17 03/18/17 03/18/17 03/19/17 03/19/17 03/19/17 07:00 15:00 23:00 07:00 15:00 23:00 Intake Total 970 ml 649 ml 1448 ml 1715 ml Output Total 2500 ml 2050 ml Balance -1530 ml 649 ml 1448 ml -335 ml Intake Oral 240 ml 240 ml 480 ml 720 ml IV Total 580 ml 409 ml 968 ml 995 ml Other 150 ml Output Urine Total 2500 ml 2050 ml # Voids 3 2 # Bowel Movements 0 0 0 Result Diagram: 03/18/17 0500 Objective Remarks GENERAL: NAD SKIN: Warm and dry. HEAD: Normocephalic. EYES: No scleral icterus. No injection or drainage. NECK: Supple, trachea midline. No JVD or lymphadenopathy. CARDIOVASCULAR: Regular rate and rhythm without murmurs, gallops, or rubs. RESPIRATORY: Breath sounds equal bilaterally. No accessory muscle use. GASTROINTESTINAL: Abdomen soft, non-tender, nondistended. GJ tube in place MUSCULOSKELETAL: No cyanosis, or edema. BACK: Nontender without obvious deformity. No CVA tenderness. Procedures GJ tube placement A/P Problem List: (1) Hypokalemia ICD Code: E87.6 Status: Resolved (2) Intractable nausea and vomiting ICD Code: R11.2 Status: Resolved (3) Constipation by delayed colonic transit ICD Code: K59.01 Status: Acute Assessment and Plan 41-year-old female with Chronic hypokalemia-resolved -Patient was worked up as outpatient per diagnosis with patient. -Magnesium and potassium are within normal limits. Continue with current replacement. -continue with Mg to 400 mg TID Weight loss secondary to questionable gastroparesis status post PEG -Nutrition consulted and recommended vital 1.5 started at 20 cc/h decreased 10 mL's every 4 hours as tolerated to a goal of 60 cc/h. Or slow bolus feeds 240ml x3/day Acute renal failure -Resolved with IV fluid hydration and avoid all nephrotoxic drugs Anxiety Disorder -on Diazepam -LH and FSH WNL. -prolactin elevated. Repeat outpatient. -? medication induced -no signs of prolactinoma DVT prophylaxis - Heparin 5000 units subq q8h Clayton Gill MD March 19, 2017 09:15
[2017-03-19] MEDS: SODIUM CHLORIDE 0.9% FLUSH 10 ML FLUSH IV FLUSH PRN ×2 (12:00→18:41)
[2017-03-19] MEDS: PANTOPRAZOLE SODIUM 40 MG VIAL IV PUSH SCH (20:41)
[2017-03-20] VITALS: BP 123/71; PULSE 95; RESP 19; TEMP 99; O2SAT 97
[2017-03-20] MEDS: DIAZEPAM 5 MG TAB PEG PRN ×3 (00:54→17:41)
[2017-03-20] MEDS: MORPHINE SULFATE 4 MG/ML INJ IV PUSH PRN ×4 (00:54→20:20)
[2017-03-20 04:00] VITALS: BP 117/61; PULSE 85; RESP 20; TEMP 97.8; O2SAT 100
[2017-03-20] MEDS: HEPARIN SODIUM - SQ 10,000 UNITS/ML VIAL SQ SCH ×3 (06:19→20:18)
[2017-03-20] MEDS: SUCRALFATE 1 GM/10 ML CUP PEG SCH ×4 (06:19→20:18)
[2017-03-20] MEDS: MAGNESIUM OXIDE 400 MG TAB PEG SCH ×3 (07:34→17:37)
[2017-03-20] MEDS: SODIUM CHLORIDE 0.9% FLUSH 10 ML FLUSH IV FLUSH SCH ×2 (07:34→20:19)
[2017-03-20 08:00] VITALS: BP 119/56; PULSE 93; PULSE 97; RESP 17; TEMP 97.7; TEMP 99.4; O2SAT 95; O2SAT 96
--- NOTE | 2017-03-20 08:51 | HHI.FF ---
Face to Face Verification Diagnosis: (1) Dehydration (2) Hypokalemia (3) Intractable nausea and vomiting Home Health Nursing Order: Signs/symptoms of disease process Instructions: Patient will be on nocturnal Tube feeding I have seen patient Brisa Hernandez on 03/20/17. My clinical findings support the need for the requested home health care services because: Injectable med education/admin I certify that my clinical findings support that this patient is homebound because: Poor cardiac reserve Clayton Gill MD March 20, 2017 08:51
[2017-03-20] MEDS ORDERED: K-PHTAB PO (11:46)
[2017-03-20] MEDS ORDERED: NYST1000 SWISH-SWAL (11:46)
--- NOTE | 2017-03-20 11:51 | HHI.PR ---
Subjective Remarks Follow-up chronic hypokalemia/abdominal pain 03/18/17-patient seen and examined, denies any significant abdominal pain. Complains of constipation times several day duration. Tolerated by mouth. 03/19/17-patient seen and examined, no acute event overnight. Tolerated by mouth as well as tube feed. Case discussed with caser regarding discharge disposition. 03/20/17-patient seen and examined, requesting hypokalemic diet before discharge. Complains of some left lower quadrant abdominal swelling. Currently afebrile. Patient also complains of oral thrush Objective Vitals Vital Signs Date Time Temp Pulse Resp B/P Pulse Ox O2 Delivery O2 Flow Rate FiO2 03/20/17 08:00 97.7 97 17 119/56 96 03/20/17 04:00 97.8 85 20 117/61 100 03/20/17 00:59 18 03/20/17 00:00 99.0 95 19 123/71 97 03/19/17 20:00 99.5 93 18 105/64 97 03/19/17 19:34 99 03/19/17 16:00 97.5 72 16 126/78 99 03/19/17 12:00 98.3 78 17 128/78 100 I/O 03/19/17 03/19/17 03/19/17 03/20/17 03/20/17 03/20/17 07:00 15:00 23:00 07:00 15:00 23:00 Intake Total 1715 ml 1368 ml 240 ml 240 ml Output Total 2050 ml 500 ml Balance -335 ml 868 ml 240 ml 240 ml Intake Oral 720 ml 360 ml 240 ml 240 ml IV Total 995 ml 1008 ml Output Urine Total 2050 ml 500 ml # Voids 2 3 # Bowel Movements 0 0 0 1 Result Diagram: 03/18/17 0500 Objective Remarks GENERAL: NAD SKIN: Warm and dry. HEAD: Normocephalic. EYES: No scleral icterus. No injection or drainage. NECK: Supple, trachea midline. No JVD or lymphadenopathy. CARDIOVASCULAR: Regular rate and rhythm without murmurs, gallops, or rubs. RESPIRATORY: Breath sounds equal bilaterally. No accessory muscle use. GASTROINTESTINAL: Abdomen soft, non-tender, nondistended. GJ tube in place MUSCULOSKELETAL: No cyanosis, or edema. BACK: Nontender without obvious deformity. No CVA tenderness. Procedures GJ tube placement A/P Problem List: (1) Hypokalemia ICD Code: E87.6 Status: Resolved (2) Intractable nausea and vomiting ICD Code: R11.2 Status: Resolved (3) Constipation by delayed colonic transit ICD Code: K59.01 Status: Acute (4) Oral thrush ICD Code: B37.0 Status: Acute Assessment and Plan 41-year-old female with Chronic hypokalemia-resolved -Patient was worked up as outpatient per diagnosis with patient. -Magnesium and potassium are within normal limits. Continue with current replacement. -continue with Mg to 400 mg TID Weight loss secondary to questionable gastroparesis status post PEG -Nutrition consulted and recommended vital 1.5 started at 20 cc/h decreased 10 mL's every 4 hours as tolerated to a goal of 60 cc/h. Or slow bolus feeds 240ml x3/day Acute renal failure -Resolved with IV fluid hydration and avoid all nephrotoxic drugs Anxiety Disorder -on Diazepam -LH and FSH WNL. -prolactin elevated. Repeat outpatient. -? medication induced -no signs of prolactinoma Oral thrush Start nystatin SS PRN DVT prophylaxis - Heparin 5000 units subq q8h Clayton Gill MD March 20, 2017 11:51
[2017-03-20 12:00] VITALS: BP 125/77; PULSE 123; RESP 19; TEMP 98.2; O2SAT 96
[2017-03-20] MEDS: NYSTATIN SUSP 500,000 U/5 ML CUP SWISH-SWAL SCH ×3 (12:25→20:18)
[2017-03-20] MEDS ORDERED: NUTR-189 J-TUBE (14:58)
[2017-03-20 16:00] VITALS: BP 135/60; PULSE 96; RESP 19; TEMP 98.5; O2SAT 96
[2017-03-20 20:00] VITALS: BP 132/71; PULSE 85; RESP 19; TEMP 97.9; O2SAT 100
[2017-03-20] MEDS: PANTOPRAZOLE SODIUM 40 MG VIAL IV PUSH SCH (20:18)
[2017-03-21] VITALS (7 sets, daily range): BP systolic 90–103; BP diastolic 54–65; PULSE 74–96; RESP 16–18; TEMP 97.3–98.9; O2SAT 96–98
[2017-03-21] MEDS: DIAZEPAM 5 MG TAB PEG PRN ×3 (03:39→20:46)
[2017-03-21] MEDS: MORPHINE SULFATE 4 MG/ML INJ IV PUSH PRN ×4 (03:40→22:16)
[2017-03-21] MEDS: HEPARIN SODIUM - SQ 10,000 UNITS/ML VIAL SQ SCH ×3 (03:43→20:47)
[2017-03-21] MEDS: SUCRALFATE 1 GM/10 ML CUP PEG SCH ×4 (03:43→20:58)
[2017-03-21] MEDS: MAGNESIUM OXIDE 400 MG TAB PEG SCH ×3 (08:34→18:10)
[2017-03-21] MEDS: NYSTATIN SUSP 500,000 U/5 ML CUP SWISH-SWAL SCH ×4 (08:34→20:47)
[2017-03-21] MEDS: CHOLECALCIFEROL (VIT D3) 5000 UNIT CAP PO SCH (08:35)
[2017-03-21] MEDS: SODIUM CHLORIDE 0.9% FLUSH 10 ML FLUSH IV FLUSH SCH ×2 (08:37→20:53)
--- NOTE | 2017-03-21 08:59 | HHI.PR ---
Subjective Remarks Follow-up chronic hypokalemia/abdominal pain 03/18/17-patient seen and examined, denies any significant abdominal pain. Complains of constipation times several day duration. Tolerated by mouth. 03/19/17-patient seen and examined, no acute event overnight. Tolerated by mouth as well as tube feed. Case discussed with mattress spring encaser regarding discharge disposition. 03/20/17-patient seen and examined, requesting hypokalemic diet before discharge. Complains of some left lower quadrant abdominal swelling. Currently afebrile. Patient also complains of oral thrush 03/21/17-patient seen and examined, has some gum problem otherwise no other issues. Discharge disposition still pending Objective Vitals Vital Signs Date Time Temp Pulse Resp B/P Pulse Ox O2 Delivery O2 Flow Rate FiO2 03/21/17 08:00 97.3 92 16 90/58 98 03/21/17 04:00 97.5 74 18 93/55 97 03/21/17 00:00 98.8 89 18 92/54 96 03/20/17 20:00 97.9 85 19 132/71 100 03/20/17 16:00 98.5 96 19 135/60 96 03/20/17 12:00 98.2 123 19 125/77 96 I/O 03/20/17 03/20/17 03/20/17 03/21/17 03/21/17 03/21/17 07:00 15:00 23:00 07:00 15:00 23:00 Intake Total 240 ml 960 ml 480 ml 480 ml Output Total 800 ml Balance 240 ml 160 ml 480 ml 480 ml Intake Oral 240 ml 960 ml 480 ml 480 ml IV Total 0 ml Output Urine Total 800 ml # Voids 3 2 3 # Bowel Movements 1 0 0 1 Result Diagram: 03/18/17 0500 Objective Remarks GENERAL: NAD SKIN: Warm and dry. HEAD: Normocephalic. EYES: No scleral icterus. No injection or drainage. NECK: Supple, trachea midline. No JVD or lymphadenopathy. CARDIOVASCULAR: Regular rate and rhythm without murmurs, gallops, or rubs. RESPIRATORY: Breath sounds equal bilaterally. No accessory muscle use. GASTROINTESTINAL: Abdomen soft, non-tender, nondistended. GJ tube in place MUSCULOSKELETAL: No cyanosis, or edema. BACK: Nontender without obvious deformity. No CVA tenderness. Procedures GJ tube placement A/P Problem List: (1) Hypokalemia ICD Code: E87.6 Status: Resolved (2) Intractable nausea and vomiting ICD Code: R11.2 Status: Resolved (3) Constipation by delayed colonic transit ICD Code: K59.01 Status: Acute (4) Oral thrush ICD Code: B37.0 Status: Acute Assessment and Plan 41-year-old female with Chronic hypokalemia-resolved -Patient was worked up as outpatient per diagnosis with patient. -Magnesium and potassium are within normal limits. Continue with current replacement. -continue with Mg to 400 mg TID Check BMP and replace K accordingly Weight loss secondary to questionable gastroparesis status post PEG -Nutrition consulted and recommended vital 1.5 started at 20 cc/h decreased 10 mL's every 4 hours as tolerated to a goal of 60 cc/h. Or slow bolus feeds 240ml x3/day Acute renal failure -Resolved with IV fluid hydration and avoid all nephrotoxic drugs Anxiety Disorder -on Diazepam -LH and FSH WNL. -prolactin elevated. Repeat outpatient. -? medication induced -no signs of prolactinoma Oral thrush Continue nystatin SS PRN DVT prophylaxis - Heparin 5000 units subq q8h Clayton Gill MD March 21, 2017 08:59
[2017-03-21] MEDS: SODIUM CHLORIDE 0.9% FLUSH 10 ML FLUSH IV FLUSH PRN (09:57)
[2017-03-21 11:21] LABS: POTASSIUM 4.5 MEQ/L (3.5-5.1)
[2017-03-21] MEDS: PANTOPRAZOLE SODIUM 40 MG VIAL IV PUSH SCH (20:48)
[2017-03-22] VITALS: BP 95/54; PULSE 82; RESP 18; TEMP 98.2; O2SAT 94
[2017-03-22 04:00] VITALS: BP 98/55; PULSE 89; RESP 20; TEMP 99.4; O2SAT 100
[2017-03-22] MEDS: DIAZEPAM 5 MG TAB PEG PRN ×2 (04:35→12:28)
[2017-03-22] MEDS: HEPARIN SODIUM - SQ 10,000 UNITS/ML VIAL SQ SCH (04:35)
[2017-03-22] MEDS: MORPHINE SULFATE 4 MG/ML INJ IV PUSH PRN (04:35)
[2017-03-22] MEDS: SUCRALFATE 1 GM/10 ML CUP PEG SCH ×2 (06:27→10:54)
[2017-03-22 08:00] VITALS: BP 96/50; PULSE 83; RESP 16; TEMP 98.6; O2SAT 99
[2017-03-22] MEDS: POLYETHYLENE GLYCOL 17 GM PKG G-TUBE PRN (08:09)
[2017-03-22] MEDS: MAGNESIUM OXIDE 400 MG TAB PEG SCH ×2 (08:09→12:28)
[2017-03-22] MEDS: NYSTATIN SUSP 500,000 U/5 ML CUP SWISH-SWAL SCH ×2 (08:09→12:29)
[2017-03-22] MEDS: SODIUM CHLORIDE 0.9% FLUSH 10 ML FLUSH IV FLUSH SCH (08:11)
--- NOTE | 2017-03-22 10:50 | HHI.PR ---
Subjective Remarks Follow-up chronic hypokalemia/abdominal pain 03/18/17-patient seen and examined, denies any significant abdominal pain. Complains of constipation times several day duration. Tolerated by mouth. 03/19/17-patient seen and examined, no acute event overnight. Tolerated by mouth as well as tube feed. Case discussed with case finisher regarding discharge disposition. 03/20/17-patient seen and examined, requesting hypokalemic diet before discharge. Complains of some left lower quadrant abdominal swelling. Currently afebrile. Patient also complains of oral thrush 03/21/17-patient seen and examined, has some gum problem otherwise no other issues. Discharge disposition still pending 03/22/17-patient seen and examined, complains of constipation, neck pain, and discharge disposition still pending. Objective Vitals Vital Signs Date Time Temp Pulse Resp B/P Pulse Ox O2 Delivery O2 Flow Rate FiO2 03/22/17 08:00 98.6 83 16 96/50 99 03/22/17 04:00 99.4 89 20 98/55 100 03/22/17 00:00 98.2 82 18 95/54 94 03/21/17 21:00 Room Air 03/21/17 21:00 96 03/21/17 20:00 98.9 91 18 100/62 96 03/21/17 16:20 18 03/21/17 16:00 98.3 88 18 103/65 98 03/21/17 12:00 97.8 93 17 100/61 97 I/O 03/21/17 03/21/17 03/21/17 03/22/17 03/22/17 03/22/17 07:00 15:00 23:00 07:00 15:00 23:00 Intake Total 480 ml 720 ml 240 ml 360 ml Output Total 425 ml Balance 480 ml 295 ml 240 ml 360 ml Intake Oral 480 ml 720 ml 240 ml 360 ml Output Urine Total 425 ml # Voids 3 2 2 # Bowel Movements 1 0 0 2 Result Diagram: 03/21/17 1040 Objective Remarks GENERAL: NAD SKIN: Warm and dry. HEAD: Normocephalic. EYES: No scleral icterus. No injection or drainage. NECK: Supple, trachea midline. No JVD or lymphadenopathy. CARDIOVASCULAR: Regular rate and rhythm without murmurs, gallops, or rubs. RESPIRATORY: Breath sounds equal bilaterally. No accessory muscle use. GASTROINTESTINAL: Abdomen soft, non-tender, nondistended. GJ tube in place MUSCULOSKELETAL: No cyanosis, or edema. BACK: Nontender without obvious deformity. No CVA tenderness. Procedures GJ tube placement A/P Problem List: (1) Hypokalemia ICD Code: E87.6 Status: Resolved (2) Intractable nausea and vomiting ICD Code: R11.2 Status: Resolved (3) Constipation by delayed colonic transit ICD Code: K59.01 Status: Acute (4) Oral thrush ICD Code: B37.0 Status: Acute Assessment and Plan 41-year-old female with Chronic hypokalemia-resolved -Patient was worked up as outpatient per diagnosis with patient. -Magnesium and potassium are within normal limits. Continue with current replacement. -continue with Mg to 400 mg TID Check BMP and replace K accordingly Weight loss secondary to questionable gastroparesis status post PEG -Nutrition consulted and recommended vital 1.5 started at 20 cc/h decreased 10 mL's every 4 hours as tolerated to a goal of 60 cc/h. Or slow bolus feeds 240ml x3/day Acute renal failure -Resolved with IV fluid hydration and avoid all nephrotoxic drugs Anxiety Disorder -on Diazepam -LH and FSH WNL. -prolactin elevated. Repeat outpatient. -? medication induced -no signs of prolactinoma Oral thrush Continue nystatin SS PRN Constipation Increased frequency of narcotics Stool softener when necessary DVT prophylaxis - Heparin 5000 units subq q8h Clayton Gill MD March 22, 2017 10:50
[2017-03-22] MEDS: SODIUM CHLORIDE 0.9% FLUSH 10 ML FLUSH IV FLUSH PRN (10:55)
[2017-03-22 12:00] VITALS: BP 100/58; PULSE 85; RESP 17; TEMP 97.1; O2SAT 99
[2017-03-22] MEDS ORDERED: MAGNESIUM CITRATE SOLN 300 ML BTL PO ONE (13:00)
[2017-03-22] MEDS ORDERED: MORPHINE SULFATE 4 MG/ML INJ IV PUSH PRN (14:00)
== END 2017-03-22 14:56 | disposition home or self-care (01) | DRG 683 ==
LOC: NEPC 17:54 → NEDA 22:08 → HCIS 03-09 00:18 → N07B 03-13 03:00
PROVIDERS: ADMIT Hospitalist; ATTEND Hospitalist
PROC: 0DHA3UZ Insertion of Feeding Device into Jejunum, Percutaneous Approach (ICD-10-PCS; principal; 2017-03-10)
DX: N17.9 Acute kidney failure, unspecified (principal); K51.90 Ulcerative colitis, unspecified, without complications; B37.0 Candidal stomatitis; K90.9 Intestinal malabsorption, unspecified; K56.7 Ileus, unspecified; Z68.1 Body mass index [BMI] 19.9 or less, adult; E87.6 Hypokalemia; K31.84 Gastroparesis; E03.9 Hypothyroidism, unspecified; K21.0 Gastro-esophageal reflux disease with esophagitis; R63.4 Abnormal weight loss; G40.909 Epilepsy, unspecified, not intractable, without status epilepticus; E86.0 Dehydration; N64.3 Galactorrhea not associated with childbirth; F31.9 Bipolar disorder, unspecified; F41.9 Anxiety disorder, unspecified; Z85.038 Personal history of other malignant neoplasm of large intestine; Z86.14 Personal history of Methicillin resistant Staphylococcus aureus infection; Z88.0 Allergy status to penicillin; Z88.1 Allergy status to other antibiotic agents; Z88.5 Allergy status to narcotic agent; Z91.013 Allergy to seafood
CPT/HCPCS: 49440; 49446; 71010; 74000; 74176; 76937; 80048; 80053; 81001; 83001; 83002; 83690; 83735; 84100; 84132; 84146; 84439; 84443; 84481; 84702; 85025; 85610; 85730; 93005; C1769; C1874; C1887; C1894; C9113; J1200; J1610; J1644; J1956; J2060; J2270; J2405; J2765; J3010; J3475; J3480; J7030; J7120; Q9967

== ENCOUNTER 2017-04-21 21:20 | Inpatient (IN) | payer OTHER ==
[~2017-04-21] VITALS: Ht 175.3 cm; Wt 58.5 kg
[~2017-04-21 21:20] MED LIST changes: -BENA25TA3 PO; -DIAZ10 PO; +DIAZ5 PEG; -IBUP-988 PO; +KLYTECL PEG; +MAGN400T3 PEG; +NUTR-189 J-TUBE; +NYST1000 SWISH-SWAL; -OXYC-392 PO; +POLY17S G-TUBE; -PRED5PAK PO; +PROT40TA PO; +SUCR1S PEG
[2017-04-21] MEDS ORDERED: SODIUM CHLOR 0.9% 1000 ML INJ 1,000 ML IV ONE (21:32)
--- NOTE | 2017-04-21 21:35 | PD ---
HPI Chief Complaint: infected PEG tube, body aches Time Seen by Provider: 21:34 Travel History International Travel<30 days: No Contact w/Intl Traveler<30days: No Traveled to known affect area: No History of Present Illness HPI 41 year-old female a significant GI history to include gastritis, the colitis, diverticulitis, gastroparesis with J-tube in place presents to the emergency department for evaluation of infection surrounding her J-tube site. Patient states she noticed drainage a couple days ago. Denies any significant abdominal pain. No fever or chills. States that she has been having body aches and cramping like she does when her potassium is low. She is also having bilateral flank pain which started in the last day or so. Denies any changes in bowel or bladder. She has had nausea and vomiting over the last 2 days the states she was able to eat today. Patient has no other symptoms reported this time. 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) Cardiovascular Problems: Yes High Cholesterol: No Chemotherapy: No Chest Pain: No Congestive Heart Failure: No COPD: No Cerebrovascular Accident: No Diabetes: No Diminished Hearing: No Endocrine: Yes (HX ENDOMETRIOUSIS) Gastrointestinal Disorders: Yes GERD: Yes Genitourinary: Yes Headaches: Yes Hiatal Hernia: No Heparin Induced Thrombocytopen: No Hypertension: No Immune Disorder: No Implanted Vascular Access Dvce: No Kidney Stones: Yes Musculoskeletal: No Neurologic: Yes Psychiatric: No Reproductive: Yes Respiratory: No Immunizations Current: Yes Migraines: Yes Pneumonia: Yes Radiation Therapy: No Renal Failure: No Seizures: Yes (juvenile epilepsy) Sickle Cell Disease: No Sleep Apnea: No Thyroid Disease: No Ulcer: Yes (Pt states she has severe ulcers from throat to rectum) PNEUMOCCOCAL Vaccine (Year): 3 : 2 Para: 1 Miscarriage: 1 : 0 Ectopic : Yes (AT 17 YEARS OF AGE) Ovarian Cysts: Yes Past Surgical History Abdominal Surgery: Yes (multiple Laps) AICD: No Appendectomy: Yes Arteriovenous Shunt: No Cardiac Surgery: No Ear Surgery: No Endocrine Surgery: Yes Eye Surgery: No Genitourinary Surgery: Yes (Interstitial cystitis) Gynecologic Surgery: Yes Hysterectomy: Yes (PARTIAL OOPHERECTOMY AND PARTIAL SALPINECTOMY) Insulin Pump: No Joint Replacement: No Neurologic Surgery: No Oral Surgery: Yes (Removal of abscess) Pacemaker: No Thoracic Surgery: No Other Surgery: Yes (endometriosis, ovarian cyst,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,appendectomy, cervix partial re) Social History Alcohol Use: No Tobacco Use: No Substance Use: No Allergies-Medications (Allergen,Severity, Reaction): Coded Allergies: Keflex (Verified Allergy, Severe, RASH,SWELLING, 03/08/17) Penicillin (Verified Allergy, Severe, RASH,SWELLING, 03/08/17) Seafood (Verified Allergy, Severe, SWELLING IN THROAT, SOB, 03/08/17) Toradol (Verified Allergy, Severe, RASH, 03/08/17) Compazine (Verified Allergy, Mild, DYSTONIC REACTION, 03/08/17) Phenergan (Verified Allergy, Mild, DYSTONIC REACTION, 03/08/17) Neurontin (Verified Adverse Reaction, Severe, SEIZURES, 03/08/17) *MDRO Multi-Drug Resistant Organism (Verified Adverse Reaction, Unknown, ) MRSA axilla/ breast 2008 MRSA PCR (nares) negative - 04/19/16 & 04/21/16 Cleared per Infection Control Reported Meds & Prescriptions Reported Meds & Active Scripts Active Vital 1.5 Jeremiah (Nutritional Supplements) 1 Liq Liq 1.5 Liter J-TUBE CONTINUOUS nocturnal continuous feeding @ night throug J tube Vital 1.5 @ 60ml/hr x 12hrs and via a Feeding Pump. Nystatin Liq 100,000 unit/ml Susp 5 Ml SWISH-SWAL QID K-Phos (Potassium Phosphate Monobasic) 500 Mg Tab 1,000 Mg PO PCHS Protonix (Pantoprazole Sodium) 40 Mg Tab 40 Mg PO DAILY Polyethylene Glycol 3350 Powder (Polyethylene Glycol) 17 Gm Pow 17 Gm G-TUBE DAILY PRN Sucralfate Liq (Sucralfate) 1 Gm/10 Ml Bernadette 1 Gm PEG ACHS Effervescent Potassium Chloride 25 Meq (Potassium Bicarb/Potassium Chloride) 25 Meq Tab 25 Meq PEG TID Magnesium Oxide 241.3 Mg Tab 400 Mg PEG TID Valium (Diazepam) 5 Mg Tab 5 Mg PEG Q8HR PRN Pantoprazole (Pantoprazole Sodium) 40 Mg Tab 40 Mg PO DAILY Sucralfate Liq (Sucralfate) 1 Gm/10 Ml Bernadette 1 Gm PO ACHS K-Phos (Potassium Phosphate Monobasic) 500 Mg Tab 1,000 Mg PO DAILY Potassium Chloride Microencaps 20 Meq Tab 40 Meq PO TID Magnesium Oxide 241.3 Mg Tab 400 Mg PO Q12HR Reported Magnesium Citrate 100 Mg Tab 100 Mg PO HS Vitamin D3 (Cholecalciferol) 10,000 Unit Cap 20,000 Units PO Q3D Review of Systems Except as stated in HPI: all other systems reviewed are Neg Physical Exam Narrative GENERAL: Thin female patient, in no acute distress SKIN: Focused skin assessment warm/dry. HEAD: Atraumatic. Normocephalic. EYES: Pupils equal and round. No scleral icterus. No injection or drainage. ENT: No nasal bleeding or discharge. Mucous membranes pink and moist. NECK: Trachea midline. No JVD. CARDIOVASCULAR: Regular rate and rhythm. RESPIRATORY: No accessory muscle use. Clear to auscultation. Breath sounds equal bilaterally. GASTROINTESTINAL: Abdomen soft, non-tender, nondistended. No peritoneal signs. There is a J-tube in place with a small amount of purulent drainage from the insertion site. Cultures obtained. Hepatic and splenic margins not palpable. MUSCULOSKELETAL: No obvious deformities. No clubbing. No cyanosis. No edema. NEUROLOGICAL: Awake and alert. No obvious cranial nerve deficits. Motor grossly within normal limits. Normal speech. PSYCHIATRIC: Appropriate mood and affect; insight and judgment normal. Data Data Last Documented VS Vital Signs Date Time Temp Pulse Resp B/P Pulse Ox O2 Delivery O2 Flow Rate FiO2 04/21/17 21:38 98.2 65 12 121/68 98 Orders Electrocardiogram (04/21/17 21:32) Complete Blood Count With Diff (04/21/17 21:32) Comprehensive Metabolic Panel (04/21/17 21:32) Prothrombin Time / Inr (Pt) (04/21/17 21:32) Act Partial Throm Time (Ptt) (04/21/17 21:32) Lactic Acid Sepsis Protocol (04/21/17 21:32) Magnesium (Mg) (04/21/17 21:32) Lipase (04/21/17 21:32) Urinalysis - C+S If Indicated (04/21/17 21:32) Blood Culture (04/21/17 21:32) Blood Glucose (04/21/17 21:32) Ecg Monitoring (04/21/17 21:32) Iv Access Insert/Monitor (04/21/17 21:32) Oximetry (04/21/17 21:32) Oxygen Administration (04/21/17 21:32) Sodium Chlor 0.9% 1000 Ml Inj (Ns 1000 M (04/21/17 21:32) Wound Culture And Gram Stain (04/21/17 21:32) MDM Medical Decision Making Medical Screen Exam Complete: Yes Emergency Medical Condition: Yes Medical Record Reviewed: Yes Differential Diagnosis Localized infection versus peritonitis versus gastroenteritis versus electrolyte abnormality versus UTI versus versus sepsis Narrative Course 41 year-old female presents to emergency department for evaluation. Patient appears without distress. There is some drainage around the site of her J- tube. Cultures obtained. Vital signs are stable. Lab work is obtained. 2300 report is given to my attending physician Dr. baltazar. He will seem care at this time. Condition: Stable Lily Diehl Apr 21, 2017 21:35 Lily Diehl Apr 21, 2017 21:35
[2017-04-21 21:38] VITALS: BP 121/68; PULSE 65; RESP 12; TEMP 98.2; O2SAT 98
[2017-04-21 22:39] LABS: AUTOMATED NEUTROPHIL # 6.7 TH/MM3 (1.8-7.7); BASOPHIL # 0.1 TH/MM3 (0-0.2); BASOPHIL % 0.7 % (0.0-2.0); EOSINOPHIL # 0.3 TH/MM3 (0-0.4); EOSINOPHIL % 3.4 % (0.0-4.0); HEMATOCRIT 40.2 % (35.0-46.0); HEMO FLAGS DIFF FINAL; LYMPH % 18.2 % (9.0-44.0); LYMPHOCYTE # 1.7 TH/MM3 (1.0-4.8); MEAN CORPUSCULAR HEMOGLOBIN 28.3 PG (27.0-34.0); MEAN CORPUSCULAR HGB CONC 32.5 % (32.0-36.0); MONO % 6.8 % (0.0-8.0); NEUT % 70.9 % (16.0-70.0); PLATELET COUNT 226 TH/MM3 (150-450); RED BLOOD COUNT 4.62 MIL/MM3 (4.00-5.30); RED CELL DISTRIBUTION WIDTH 15.5 % (11.6-17.2); WHITE BLOOD COUNT 9.5 TH/MM3 (4.0-11.0)
[2017-04-21 22:55] LABS: APTT (PATIENT) 19.1 SEC (24.3-30.1); PROTHROMBIN TIME - PATIENT 10.6 SEC (9.8-11.6)
[2017-04-21 23:06] LABS: ANION GAP 16 MEQ/L (5-15)
[2017-04-21 23:11] LABS: ALKALINE PHOSPHATASE 56 U/L (45-117); ALT (GPT) 16 U/L (10-53); AST (GOT) 20 U/L (15-37); BICARBONATE 24.4 MEQ/L (21.0-32.0); BLOOD UREA NITROGEN 53 MG/DL (7-18); CHLORIDE 95 MEQ/L (98-107); GLOMERULAR FILTRATION RATE 20 ML/MIN (>89); MAGNESIUM 2.9 MG/DL (1.5-2.5); POTASSIUM 2.6 MEQ/L (3.5-5.1); SODIUM (NA) 135 MEQ/L (136-145); TOTAL BILIRUBIN ADULT 0.2 MG/DL (0.2-1.0)
[2017-04-21 23:24] LABS: BACTERIA, URINE RARE /hpf; BLOOD, URINE LARGE (NEG); COMMENT (UR) CATH-CULTURE IND; CULTURE IF INDICATED CATH CULTURE IND; GLUCOSE,URINE NEG (NEG); HYALINE CAST, URINE 32 /lpf (RARE); KETONE, URINE NEG (NEG); NITRITE,URINE NEG (NEG); SQUAMOUS EPITHELIAL CELL URINE 2 /hpf (0-5); URINE COLOR YELLOW (YELLW/STRAW)
--- NOTE | 2017-04-21 23:31 | PD ---
Data Data Last Documented VS Vital Signs Date Time Temp Pulse Resp B/P Pulse Ox O2 Delivery O2 Flow Rate FiO2 04/21/17 21:38 98.2 65 12 121/68 98 Orders Electrocardiogram (04/21/17 21:32) Complete Blood Count With Diff (04/21/17 21:32) Comprehensive Metabolic Panel (04/21/17 21:32) Prothrombin Time / Inr (Pt) (04/21/17 21:32) Act Partial Throm Time (Ptt) (04/21/17 21:32) Lactic Acid Sepsis Protocol (04/21/17 21:32) Magnesium (Mg) (04/21/17 21:32) Lipase (04/21/17 21:32) Urinalysis - C+S If Indicated (04/21/17:32) Blood Culture (04/21/17:32) Blood Glucose (04/21/17 21:32) Ecg Monitoring (04/21/17 21:32) Iv Access Insert/Monitor (04/21/17:32) Oximetry (04/21/17:32) Oxygen Administration (04/21/17:32) Sodium Chlor 0.9% 1000 Ml Inj (Ns 1000 M (04/21/17 21:32) Wound Culture And Gram Stain (04/21/17 21:32) Labs Laboratory Tests Test 04/21/17 22:10 White Blood Count 9.5 TH/MM3 Red Blood Count 4.62 MIL/MM3 Hemoglobin 13.1 GM/DL Hematocrit 40.2 % Mean Corpuscular Volume 87.0 FL Mean Corpuscular Hemoglobin 28.3 PG Mean Corpuscular Hemoglobin 32.5 % Concent Red Cell Distribution Width 15.5 % Platelet Count 226 TH/MM3 Mean Platelet Volume 8.8 FL Neutrophils (%) (Auto) 70.9 % Lymphocytes (%) (Auto) 18.2 % Monocytes (%) (Auto) 6.8 % Eosinophils (%) (Auto) 3.4 % Basophils (%) (Auto) 0.7 % Neutrophils # (Auto) 6.7 TH/MM3 Lymphocytes # (Auto) 1.7 TH/MM3 Monocytes # (Auto) 0.6 TH/MM3 Eosinophils # (Auto) 0.3 TH/MM3 Basophils # (Auto) 0.1 TH/MM3 CBC Comment DIFF FINAL Differential Comment Prothrombin Time 10.6 SEC Prothromb Time International 1.0 RATIO Ratio Activated Partial 19.1 SEC Thromboplast Time Sodium Level 135 MEQ/L Potassium Level 2.6 MEQ/L Chloride Level 95 MEQ/L Carbon Dioxide Level 24.4 MEQ/L Anion Gap 16 MEQ/L Blood Urea Nitrogen 53 MG/DL Creatinine 2.67 MG/DL Estimat Glomerular Filtration 20 ML/MIN Rate Random Glucose 100 MG/DL Lactic Acid Level 1.0 mmol/L Calcium Level 10.2 MG/DL Magnesium Level 2.9 MG/DL Total Bilirubin 0.2 MG/DL Aspartate Amino Transf 20 U/L (AST/SGOT) Alanine Aminotransferase 16 U/L (ALT/SGPT) Alkaline Phosphatase 56 U/L Total Protein 8.8 GM/DL Albumin 4.3 GM/DL Lipase 84 U/L [facility] Supervised Visit with ARY: Yes Narrative Course The history, exam, and medical decision-making in the associated mid-level provider note were completed with my assistance. I reviewed and agree with the findings presented. I attest that I had a [id number] encounter with the patient on the same day, and personally performed and documented my assessment and findings in the medical record. *My assessment and Findings: 41 year-old woman with history gastroparesis, esophagitis, ulcers, and hypo- kalemia presents to the ED complaining of drainage from her J-tube site, body aches and cramping, bilateral flank pain. History is a little bit unusual. She is a recurrent episodes of abdominal problems and hypokalemia. Working diagnosis seems to be gastroparesis. She had a GJ tube placed in March. Studies show CBC is normal, CMP with hypokalemia, magnesium is little bit elevated, lipase is normal On exam, looks well. Little bit emaciated. No drainage from the G-tube site. Minimal abdominal tenderness. FINAL: 41 year-old woman, severe hypokalemia, history of the same. We'll treat IV potassium, observed. Diagnosis Primary Impression: Hypokalemia Admitting Information Admitting Physician Requests: Observation Condition: Stable Feliz Saldana MD Apr 21, 2017 23:31
--- NOTE | 2017-04-21 23:58 | HHI.HP ---
[facility] Neeraj Gilbert Admission Diagnosis Diagnoses: (1) Hypokalemia Diagnosis: Principal (2) SHABANA (acute kidney injury) Diagnosis: Principal (3) Gastroparesis Diagnosis: Principal (4) Infection of PEG site Diagnosis: Principal (5) UTI (urinary tract infection) Diagnosis: Principal Travel History International Travel<30 Days: No Contact w/Intl Traveler <30 Da: No Traveled to Known Affected Are: No History of Present Illness This is a 41-year-old female with a PMH of Gastroparesis, Gastritis, s/p PEG Tube Placement, Anxiety and Bipolar Disorder who presented to the ER w/ complaints of generalized muscle cramping and purulent drainage from PEG. Multiple admissions in the past for Intractable Nausea/Vomiting and profound Hypokalemia, s/p eval by GI w/ EGD no clear etiology of symptoms. Recent admit 03/08-03/18/17 for same. Has upcoming appt w/ GI however has not been seen as of yet. States she started having back/abdominal cramping approx 4 days ago, now progressively worse. Called PCP office, but hadn't heard back and decided to come to ER. Had transient episode of nausea/vomiting 3 days ago, however now improved. Able to take PO, currently on regular diet during day and tube feeds at night, tolerating well. On arrival, BP 121/68, HR 65, O2 sat 98% on RA, Afebrile. CBC essentially unremarkable. K+ 2.6. Creatinine 2.67, previously 1.15 on 03/21/17. Calcium 10.2. Lactic Acid 1.0. UA with small LE and bacteriuria. Review of Systems Except as stated in HPI: all other systems reviewed are Neg ROS: 14 point review of systems otherwise negative. Past Family Social History Past Medical History PMH: Gastroparesis, Gastritis, s/p PEG Tube Placement, Anxiety and Bipolar Disorder Past Surgical History PAST SURGICAL HISTORY: Appendectomy, Partial Oophorectomy and Salpingectomy Allergies: Coded Allergies: Keflex (Verified Allergy, Severe, RASH,SWELLING, 03/08/17) Penicillin (Verified Allergy, Severe, RASH,SWELLING, 03/08/17) Seafood (Verified Allergy, Severe, SWELLING IN THROAT, SOB, 03/08/17) Toradol (Verified Allergy, Severe, RASH, 03/08/17) Compazine (Verified Allergy, Mild, DYSTONIC REACTION, 03/08/17) Phenergan (Verified Allergy, Mild, DYSTONIC REACTION, 03/08/17) Neurontin (Verified Adverse Reaction, Severe, SEIZURES, 03/08/17) *MDRO Multi-Drug Resistant Organism (Verified Adverse Reaction, Unknown, ) MRSA axilla/ breast 2008 MRSA PCR (nares) negative - 04/19/16 & 04/21/16 Cleared per Infection Control Family History PAST FAMILY HISTORY: Reviewed. No h/o DM or CAD Social History PAST SOCIAL HISTORY: Negative for alcohol, tobacco or drugs. Physical Exam Vital Signs Vital Signs Date Time Temp Pulse Resp B/P Pulse Ox O2 Delivery O2 Flow Rate FiO2 04/21/17 21:38 98.2 65 12 121/68 98 Physical Exam PE: GENERAL: Pleasant thin middle-aged female in no acute distress. HEENT: PERRLA, EOMI. No scleral icterus or conjunctival pallor. No lid lag or facial droop. Multiple missing teeth CARDIOVASCULAR: Regular rate and rhythm. No obvious murmurs to auscultation. No chest tenderness to palpation. RESPIRATORY: No obvious rhonchi or wheezing. Clear to auscultation. Breath sounds equal bilaterally. GASTROINTESTINAL: Abdomen soft, non-tender, nondistended. BS normal. PEG tube in place, no erythema, minimal drainage noted. MUSCULOSKELETAL: Extremities without clubbing, cyanosis, or edema. No obvious deformities. NEUROLOGICAL: Awake, alert and oriented x4. No focal neurologic deficits. Moving both upper and lower extremities spontaneously. Laboratory Laboratory Tests Test 04/21/17 04/21/17 22:10 22:30 White Blood Count 9.5 Red Blood Count 4.62 Hemoglobin 13.1 Hematocrit 40.2 Mean Corpuscular Volume 87.0 Mean Corpuscular Hemoglobin 28.3 Mean Corpuscular Hemoglobin 32.5 Concent Red Cell Distribution Width 15.5 Platelet Count 226 Mean Platelet Volume 8.8 Neutrophils (%) (Auto) 70.9 Lymphocytes (%) (Auto) 18.2 Monocytes (%) (Auto) 6.8 Eosinophils (%) (Auto) 3.4 Basophils (%) (Auto) 0.7 Neutrophils # (Auto) 6.7 Lymphocytes # (Auto) 1.7 Monocytes # (Auto) 0.6 Eosinophils # (Auto) 0.3 Basophils # (Auto) 0.1 CBC Comment DIFF FINAL Differential Comment Prothrombin Time 10.6 Prothromb Time International 1.0 Ratio Activated Partial 19.1 Thromboplast Time Sodium Level 135 Potassium Level 2.6 Chloride Level 95 Carbon Dioxide Level 24.4 Anion Gap 16 Blood Urea Nitrogen 53 Creatinine 2.67 Estimat Glomerular Filtration 20 Rate Random Glucose 100 Lactic Acid Level 1.0 Calcium Level 10.2 Magnesium Level 2.9 Total Bilirubin 0.2 Aspartate Amino Transf 20 (AST/SGOT) Alanine Aminotransferase 16 (ALT/SGPT) Alkaline Phosphatase 56 Total Protein 8.8 Albumin 4.3 Lipase 84 Urine Color YELLOW Urine Turbidity CLEAR Urine pH 6.0 Urine Specific Burgin 1.016 Urine Protein 30 Urine Glucose (UA) NEG Urine Ketones NEG Urine Occult Blood LARGE Urine Nitrite NEG Urine Bilirubin NEG Urine Urobilinogen LESS THAN 2.0 Urine Leukocyte Esterase SMALL Urine RBC LESS THAN 1 Urine WBC 2 Urine Squamous Epithelial 2 Cells Urine Bacteria RARE Urine Hyaline Casts 32 Microscopic Urinalysis Comment CATH-CULTURE IND Date/Time Procedure Status Source Growth 04/21/17 22:30 Urine Culture Received Urine Catheterized Urine Pending 04/21/17 22:20 Gram Stain Received Wound Abdomen Pending 04/21/17 22:20 Wound Culture Received Wound Abdomen Pending 04/21/17 22:10 Aerobic Blood Culture Received Blood Peripheral Pending 04/21/17 22:10 Anaerobic Blood Culture Received Blood Peripheral Pending Result Diagram: 04/21/17 2210 04/21/17 2210 Assessment and Plan Problem List: (1) Hypokalemia ICD Code: E87.6 Status: Resolved (2) Gastroparesis ICD Code: K31.84 Status: Acute (3) SHABANA (acute kidney injury) ICD Code: N17.9 Status: Resolved (4) UTI (urinary tract infection) ICD Code: N39.0 Status: Resolved (5) Infection of PEG site ICD Code: K94.22 Status: Acute Assessment and Plan A/P: 1. Hypokalemia: Recurrent. K+ 2.6, currently receiving replacement in ER, will recheck after initial replacement. Multiple admissions for same w/ unclear etiology. Has upcoming appt w/ GI and pending referral to [facility] for further eval. Telemetry. 2. Gastroparesis: Currently stable. No ongoing nausea/vomiting, able to tolerate PO. Will resume home regimen, PO during day and tube feed at night. Antiemetics/analgesics as needed. 3. SHABANA: Creatinine 2.67, previously 1.15 on 03/21/17. U/a w/ UTI, continue IVF , repeat labs in am. 4. UTI: U/a w/ small LE, bacteriuria. Start IV Cipro, IVF for hydration. 5. PEG Infection: ? infected PEG, afebrile, no leukocytosis, site without surrounding erythema however mild drainage. S/p Wound Culture in ER, will follow up culture. Hold antibiotics for now as no obvious infection. 6. DVT Prophylaxis: SCD/Teds 7. Social work for d/c planning as needed. 8. Case discussed w/ ER physician at length. Physician Certification 2 Midnight Certification Type: Admission for Inpatient Services Order for Inpatient Services The services are ordered in accordance with Medicare regulations or non- Medicare payer requirements, as applicable. In the case of services not specified as inpatient-only, they are appropriately provided as inpatient services in accordance with the 2-midnight benchmark. Estimated LOS (days): 2 days is the estimated time the patient will need to remain in the hospital, assuming treatment plan goals are met and no additional complications. Post-Hospital Plan: Home Rosangela Clements MD Apr 21, 2017 23:58
[2017-04-22] VITALS (7 sets, daily range): BP systolic 100–120; BP diastolic 58–93; PULSE 55–76; RESP 16–18; TEMP 97.2–99; O2SAT 94–100
[2017-04-22] MEDS ORDERED: ACETAMINOPHEN 325 MG TAB PO PRN
[2017-04-22] MEDS ORDERED: BISACODYL 10 MG SUPP RECTAL PRN
[2017-04-22] MEDS ORDERED: MORPHINE SULFATE 4 MG/ML INJ IV PRN
[2017-04-22] MEDS ORDERED: LACTULOSE SYRUP 20 GM/30 ML CUP PO PRN
[2017-04-22] MEDS ORDERED: SODIUM CHLOR 0.9% 1000 ML INJ 1,000 ML IV ONE
[2017-04-22] MEDS ORDERED: MAGNESIUM HYDROXIDE SUSP 30 ML CUP PO PRN
[2017-04-22] MEDS ORDERED: ONDANSETRON HCL 4 MG/2 ML VIAL IVP PRN
[2017-04-22] MEDS ORDERED: TRIMETHOBENZAMIDE INJ 200 MG/2 ML VIAL IM PRN
[2017-04-22] MEDS ORDERED: SENNOSIDES 8.6 MG TAB PO PRN
[2017-04-22] MEDS ORDERED: POLYETHYLENE GLYCOL 17 GM PKG G-TUBE PRN
[2017-04-22] MEDS: POTASSIUM CHLOR 20 MEQ PREMIX 100 ML IV SCH ×4 (00:10→17:25)
[2017-04-22] MEDS: PANTOPRAZOLE SODIUM 40 MG VIAL IV PUSH SCH ×2 (00:22→12:00)
[2017-04-22] MEDS: MORPHINE SULFATE 4 MG/ML INJ IV PRN ×7 (00:22→20:20)
[2017-04-22] MEDS ORDERED: MAGN400T2 PEG (01:03)
[2017-04-22] MEDS ORDERED: PANT40TA3 PO (01:09)
[2017-04-22] MEDS ORDERED: DIAZ10 PEG (01:11)
[2017-04-22] MEDS: SODIUM CHLOR 0.9% 1000 ML INJ 1,000 ML IV SCH ×3 (02:07→20:21)
[2017-04-22] MEDS: CIPROFLOXACIN 400 MG PREMIX 200 ML IV SCH (02:07)
[2017-04-22] MEDS: DIAZEPAM 5 MG TAB PEG PRN ×3 (02:47→20:23)
[2017-04-22] MEDS ORDERED: POTASSIUM CHLORIDE 20 MEQ PWD PACKET PO ONE (05:45)
[2017-04-22] MEDS: SODIUM CHLORIDE 0.9% FLUSH 10 ML FLUSH IV FLUSH SCH ×2 (08:53→20:20)
[2017-04-22] MEDS: DOCUSATE SODIUM 50 MG/SENNA 8.6 MG TAB PO SCH ×2 (08:53→20:19)
--- NOTE | 2017-04-22 11:45 | HHI.FPPN ---
Subjective Remarks Patient seen and examined this am. Intermittent hypotension, afebrile. Patient appears comfortable. States she feels when her potassium is low because of how her body feels. States she feels that it is still low. Lab was just drawn. No further vomiting. Has some belching, but reports when she chews her food and eats slower this improves. She has lost many of her teeth so that makes it difficult. Objective Vitals Vital Signs Date Time Temp Pulse Resp B/P Pulse Ox O2 Delivery O2 Flow Rate FiO2 04/22/17 08:00 97.2 60 18 102/58 100 04/22/17 04:28 16 04/22/17 04:00 98.0 67 16 115/73 100 04/22/17 02:30 97.8 67 16 108/93 98 04/21/17 21:38 98.2 65 12 121/68 98 I/O 04/21/17 04/21/17 04/21/17 04/22/17 04/22/17 04/22/17 07:00 15:00 23:00 07:00 15:00 23:00 Intake Total 944 ml Balance 944 ml Intake Oral 720 ml IV Total 183 ml Tube Feeding 41 ml # Voids 2 # Bowel Movements 1 Result Diagram: 04/21/17220904/21/170 Objective Remarks GENERAL: SKIN: Warm and dry. HEAD: Normocephalic. EYES: No scleral icterus. No injection or drainage. NECK: Supple, trachea midline. No JVD or lymphadenopathy. CARDIOVASCULAR: Regular rate and rhythm without murmurs, gallops, or rubs. RESPIRATORY: Breath sounds equal bilaterally. No accessory muscle use. GASTROINTESTINAL: Abdomen soft, non-tender, nondistended. MUSCULOSKELETAL: No cyanosis, or edema. BACK: Nontender without obvious deformity. No CVA tenderness. A/P Assessment and Plan 41 yo female with: 1. Hypokalemia: Recurrent. K+ 2.6 s/p replacement in ER. CMP pending. Multiple admissions for same w/ unclear etiology. Has upcoming appt w/ GI and pending referral to [facility] for further eval. Telemetry. - replete further as needed 2. Gastroparesis: Currently stable. No ongoing nausea/vomiting, able to tolerate PO. Will resume home regimen, PO during day and tube feed at night. Antiemetics/analgesics as needed. 3. SHABANA: Creatinine 2.67, previously 1.15 on 03/21/17. U/a w/ UTI, continue IVF , repeat labs in am. 4. UTI: U/a w/ small LE, bacteriuria. Cont IV Cipro, IVF for hydration. 5. PEG Infection: ? infected PEG, afebrile, no leukocytosis, site without surrounding erythema however mild drainage. S/p Wound Culture in ER, will follow up culture. Hold antibiotics for now as no obvious infection. 6. DVT Prophylaxis: SCD/Teds Problem List: (1) Abdominal pain Status: Acute (2) Intractable nausea and vomiting Status: Resolved (3) UTI (urinary tract infection) Status: Resolved (4) Hypokalemia Status: Resolved Meme Salgado MD R3 Apr 22, 2017 11:45
--- NOTE | 2017-04-22 13:06 | EKG ---
Date Performed: 04/22/2017 Time Performed: 05:45:32 PTAGE: 41 years EKG: SINUS BRADYCARDIA INTRAVENTRICULAR CONDUCTION DELAY ABNORMAL ECG PREVIOUS TRACING : 04/21/2017 22.26 DOCTOR: John Bragg Interpretating Date/Time 04/22/2017 13:04:40
--- NOTE | 2017-04-22 13:12 | EKG ---
Date Performed: 04/21/2017 Time Performed: 22:26:21 PTAGE: 41 years EKG: Sinus rhythm WITH FIRST DEGREE AV BLOCK WITH OCCASIONAL SUPRAVENTRICULAR PREMATURE COMPLEXES INTRAVENTRICULAR CON DUCTION DELAY TYPE 3 BRUGADA PATTERN (NON-DIAGNOSTIC) ABNORMAL ECG PREVIOUS TRACING : 03/08/2017 19.43 DOCTOR: John Bragg Interpretating Date/Time 04/22/2017 13:10:41
[2017-04-22 13:39] LABS: BASOPHIL # 0.1 TH/MM3 (0-0.2); BASOPHIL % 0.7 % (0.0-2.0); EOSINOPHIL # 0.3 TH/MM3 (0-0.4); EOSINOPHIL % 3.8 % (0.0-4.0); HEMATOCRIT 31.1 % (35.0-46.0); HEMO FLAGS DIFF FINAL; LYMPH % 19.9 % (9.0-44.0); LYMPHOCYTE # 1.5 TH/MM3 (1.0-4.8); MEAN CELL VOLUME 88.1 FL (80.0-100.0); MEAN CORPUSCULAR HEMOGLOBIN 28.2 PG (27.0-34.0); MONO % 10.7 % (0.0-8.0); NEUT % 64.9 % (16.0-70.0); PLATELET COUNT 177 TH/MM3 (150-450); RED BLOOD COUNT 3.53 MIL/MM3 (4.00-5.30); RED CELL DISTRIBUTION WIDTH 15.5 % (11.6-17.2); WHITE BLOOD COUNT 7.7 TH/MM3 (4.0-11.0)
[2017-04-22 14:02] LABS: BICARBONATE 22.3 MEQ/L (21.0-32.0)
[2017-04-22 14:04] LABS: POTASSIUM 2.8 MEQ/L (3.5-5.1)
[2017-04-22 14:05] LABS: CALCIUM-PROTEIN CORRECTED 7.9 MG/DL (8.5-10.1); TOTAL BILIRUBIN ADULT 0.1 MG/DL (0.2-1.0)
[2017-04-22 17:41] LABS: BICARBONATE 21.2 MEQ/L (21.0-32.0); POTASSIUM 3.2 MEQ/L (3.5-5.1)
[2017-04-22] MEDS: POTASSIUM CHLORIDE 10 MEQ CONTROLLED RELEASE TAB PO SCH (20:19)
[2017-04-23] VITALS (8 sets, daily range): BP systolic 108–130; BP diastolic 62–96; PULSE 68–85; RESP 17–20; TEMP 97.6–98.7; O2SAT 98–100
[2017-04-23] MEDS: PANTOPRAZOLE SODIUM 40 MG VIAL IV PUSH SCH ×3 (00:22→23:38)
[2017-04-23] MEDS: MORPHINE SULFATE 4 MG/ML INJ IV PRN ×7 (00:23→23:37)
[2017-04-23] MEDS: CIPROFLOXACIN 400 MG PREMIX 200 ML IV SCH (00:23)
[2017-04-23] MEDS: SODIUM CHLOR 0.9% 1000 ML INJ 1,000 ML IV SCH ×3 (05:37→23:42)
[2017-04-23] MEDS: DIAZEPAM 5 MG TAB PEG PRN ×3 (06:31→22:33)
[2017-04-23] MEDS: SODIUM CHLORIDE 0.9% FLUSH 10 ML FLUSH IV FLUSH SCH ×2 (08:52→20:13)
[2017-04-23] MEDS: POTASSIUM CHLORIDE 10 MEQ CONTROLLED RELEASE TAB PO SCH ×2 (08:52→20:11)
[2017-04-23] MEDS: DOCUSATE SODIUM 50 MG/SENNA 8.6 MG TAB PO SCH ×2 (08:55→20:12)
[2017-04-23] MEDS ORDERED: INFLUENZA VIRUS VACCINE (QUADRIVALENT) 0.5 ML SYR IM ONE (10:00)
[2017-04-23] MEDS ORDERED: POTASSIUM CHLOR 20 MEQ PREMIX 100 ML IV ONE ×2 (11:00→15:00)
[2017-04-23 11:36] LABS: AUTOMATED NEUTROPHIL # 5.6 TH/MM3 (1.8-7.7); BASOPHIL # 0.1 TH/MM3 (0-0.2); BASOPHIL % 0.9 % (0.0-2.0); EOSINOPHIL # 0.5 TH/MM3 (0-0.4); EOSINOPHIL % 4.8 % (0.0-4.0); HEMATOCRIT 30.6 % (35.0-46.0); LYMPH % 25.3 % (9.0-44.0); LYMPHOCYTE # 2.4 TH/MM3 (1.0-4.8); MEAN CELL VOLUME 87.6 FL (80.0-100.0); MONO % 9.8 % (0.0-8.0); NEUT % 59.2 % (16.0-70.0); PLATELET COUNT 186 TH/MM3 (150-450); RED CELL DISTRIBUTION WIDTH 15.4 % (11.6-17.2); WHITE BLOOD COUNT 9.4 TH/MM3 (4.0-11.0)
[2017-04-23 11:40] LABS: HEMO FLAGS AUTO DIFF
--- NOTE | 2017-04-23 11:48 | HHI.PR ---
Subjective Remarks Patient seen and examined today, her vitals are stable. Doesn't sleep much at night because she has to lay at a 30 degree angle while she sleeps. She continues to have abdominal pain. She denies any nausea or vomiting. K stabilzed yesterday then went down this am. She says for her, her potassium on when replated is around 3-3.5. Tolerated her tube feedings last night without any issues. Objective Vital Signs Date Time Temp Pulse Resp B/P Pulse Ox O2 Delivery O2 Flow Rate FiO2 04/23/17 11:44 98.3 74 20 112/62 98 04/23/17 07:31 80 04/23/17 07:30 98.7 76 20 125/73 99 04/23/17 05:59 18 04/23/17 04:00 97.6 68 18 116/76 99 04/23/17 00:00 98.3 74 18 108/66 98 04/22/17 20:00 99.0 76 18 120/74 94 04/22/17 16:00 98.5 69 18 100/61 100 04/22/17 15:00 55 04/22/17 12:00 97.5 63 18 106/69 100 I/O 04/22/17 04/22/17 04/22/17 04/23/17 04/23/17 04/23/17 07:00 15:00 23:00 07:00 15:00 23:00 Intake Total 944 ml 2600 ml 240 ml 2120 ml Output Total 1450 ml Balance 944 ml 1150 ml 240 ml 2120 ml Intake Oral 720 ml 1200 ml 240 ml 120 ml IV Total 183 ml 1400 ml 1500 ml Tube Feeding 41 ml 500 ml Output Urine Total 1450 ml # Voids 2 4 4 # Bowel Movements 1 1 0 0 Result Diagram: 04/23/17 1043 04/22/17 1710 Objective Remarks GENERAL: resting comfortably. SKIN: Warm and dry. HEAD: Normocephalic. EYES: No scleral icterus. No injection or drainage. NECK: Supple, trachea midline. No JVD or lymphadenopathy. CARDIOVASCULAR: Regular rate and rhythm without murmurs, gallops, or rubs. RESPIRATORY: Breath sounds equal bilaterally. No accessory muscle use. GASTROINTESTINAL: Abdomen soft, peg tube in place, no surrounding drainage, erythema, or signs of infection MUSCULOSKELETAL: No cyanosis, or edema. BACK: Nontender without obvious deformity. No CVA tenderness. A/P Problem List: (1) Abdominal pain ICD Code: R10.9 (2) Nausea vomiting and diarrhea ICD Code: R11.2 (3) Hypokalemia ICD Code: E87.6 (4) Gastroparesis ICD Code: K31.84 (5) S/P percutaneous endoscopic gastrostomy (PEG) tube placement ICD Code: Z93.1 Assessment and Plan 41 yo female with: 1. Hypokalemia: Recurrent. K+ 2.8 s/p replacement, improved yesterday, but now down this am. Multiple admissions for same w/ unclear etiology. Has upcoming appt w/ GI and pending referral to [facility] for further eval. Telemetry. - replete further as needed: currently getting KCl meq 20 IV BID, and 30 meq PO BID - mag level checked wnl 2. Gastroparesis: Currently stable without nausea/vomiting. Still with abdominal pain. Will resume home regimen, PO during day and tube feed at night. Antiemetics/analgesics as needed. 3. SHABANA: Improving with IV hydration. 1.15 on 03/21/17. Continue to monitor. 4. UTI: U/a w/ small LE, bacteriuria. UC shows mixed narayan, containment. Will d/c cipro. 5. PEG tube: no signs of infection, S/p Wound Culture in ER, will follow up culture. Hold antibiotics for now as no obvious infection. 6. DVT Prophylaxis: heparin for DVT prophylaxis Discharge Planning If continues to clinically improve and electrolytes stable, consider D/C Monday or Monday. Meme Salgado MD R3 Apr 23, 2017 11:48
[2017-04-23 11:58] LABS: BICARBONATE 18.9 MEQ/L (21.0-32.0)
[2017-04-23 12:11] LABS: OVALOCYTES 1+ (NORMAL); SCAN/DIFF AUTO DIFF CONFIRMED
[2017-04-23 12:12] LABS: POTASSIUM 2.8 MEQ/L (3.5-5.1)
[2017-04-23] MEDS: HEPARIN SODIUM - SQ 10,000 UNITS/ML VIAL SQ SCH (20:12)
[2017-04-24] VITALS (8 sets, daily range): BP systolic 100–127; BP diastolic 59–86; PULSE 74–84; RESP 16–20; TEMP 96.8–98.8; O2SAT 98–100
[2017-04-24] MEDS: SODIUM CHLORIDE 0.9% FLUSH 10 ML FLUSH IV FLUSH PRN ×2 (03:30→23:00)
[2017-04-24] MEDS: MORPHINE SULFATE 4 MG/ML INJ IV PRN ×4 (03:30→12:20)
[2017-04-24] MEDS: DIAZEPAM 5 MG TAB PEG PRN ×3 (06:40→22:30)
[2017-04-24 07:42] LABS: POTASSIUM 3.1 MEQ/L (3.5-5.1)
[2017-04-24] MEDS: POTASSIUM CHLORIDE 10 MEQ CONTROLLED RELEASE TAB PO SCH ×2 (08:54→20:46)
[2017-04-24] MEDS: DOCUSATE SODIUM 50 MG/SENNA 8.6 MG TAB PO SCH ×2 (08:54→20:46)
[2017-04-24] MEDS: HEPARIN SODIUM - SQ 10,000 UNITS/ML VIAL SQ SCH ×2 (08:55→20:46)
[2017-04-24] MEDS: SODIUM CHLORIDE 0.9% FLUSH 10 ML FLUSH IV FLUSH SCH ×2 (08:57→20:56)
[2017-04-24] MEDS ORDERED: POTASSIUM CHLORIDE 10 MEQ CONTROLLED RELEASE TAB PO ONE (09:45)
[2017-04-24] MEDS: POTASSIUM CHLOR 20 MEQ PREMIX 100 ML IV SCH ×2 (09:56→12:21)
[2017-04-24] MEDS: MUPIROCIN 2% OINT 22 GM TUBE TOPICAL SCH ×2 (12:21→20:47)
[2017-04-24] MEDS: PANTOPRAZOLE SODIUM 40 MG VIAL IV PUSH SCH ×2 (12:21→23:00)
--- NOTE | 2017-04-24 14:16 | HHI.PR ---
Subjective Remarks Patient complained of some discomfort around the PEG tube site. But states it is getting better. No fevers or chills. She requested Carafate which she reports she takes at home. Objective Vitals Vital Signs Date Time Temp Pulse Resp B/P Pulse Ox O2 Delivery O2 Flow Rate FiO2 04/24/17 11:50 98.4 82 20 127/86 99 04/24/17 07:50 98.5 74 20 110/75 99 04/24/17 04:00 98.8 84 17 118/76 98 04/24/17 00:00 98.8 84 17 118/76 98 04/23/17 20:05 78 04/23/17 20:00 98.4 80 17 130/96 99 04/23/17 15:50 98.6 85 20 128/62 100 I/O 04/23/17 04/23/17 04/23/17 04/24/17 04/24/17 04/24/17 07:00 15:00 23:00 07:00 15:00 23:00 Intake Total 2120 ml 563 ml 3960 ml 2000 ml Balance 2120 ml 563 ml 3960 ml 2000 ml Intake Oral 120 ml 563 ml 240 ml 240 ml IV Total 1500 ml 3660 ml 1050 ml Tube Feeding 500 ml 590 ml Other 60 ml 120 ml # Voids 4 7 2 4 # Bowel Movements 0 0 0 1 Result Diagram: 04/23/17 1043 04/24/17 0711 Objective Remarks GENERAL: This is a well-nourished, well-developed patient, in no apparent distress. Very poor dentition CARDIOVASCULAR: Normal rate and regular rhythm without murmurs, gallops, or rubs. RESPIRATORY: Good respiratory efforts. Breath sounds equal and clear to auscultation bilaterally. GASTROINTESTINAL: Abdomen soft, some mild induration around the PEG tube. Normal active bowel sounds MUSCULOSKELETAL: Extremities without cyanosis, or edema. NEURO: Alert & Oriented x4 to person, place, time, situation. Moves all ext x4 PSYCH: Appropriate mood and affect. A/P Problem List: (1) Hypokalemia ICD Code: E87.6 Status: Resolved (2) Gastroparesis ICD Code: K31.84 Status: Acute (3) SHABANA (acute kidney injury) ICD Code: N17.9 Status: Resolved (4) UTI (urinary tract infection) ICD Code: N39.0 Status: Resolved (5) Infection of PEG site ICD Code: K94.22 Status: Acute Assessment and Plan 41 yo female with: 1. Recurrent hypokalemia: Multiple admissions for same w/ unclear etiology. Has upcoming appt w/ GI and pending referral to [facility] for further eval. Telemetry unremarkable. -Replace with 40 mEq IV 1, 30 mEq by mouth 1. Continue scheduled 30 meq PO BID -Mag level I.7. Will give a dose of 1 g IV. 2. Gastroparesis: Currently stable without nausea/vomiting. Still with abdominal pain. Some of it may be chronic pain. De-escalate pain medication. Start [place] by mouth as needed and give IV morphine for breakthrough pain. 3. SHABANA: Resolved with IV hydration. Continue to monitor. 4. UTI: U/a w/ small LE, bacteriuria. UC shows mixed narayan, containment. Cipro discontinued. 5. PEG tube site superficial infection: Wound culture at the site shows staph aureus. Ordered Bactroban. Continue to monitor. 6. DVT Prophylaxis: heparin for DVT prophylaxis Discharge Planning Plan to discharge tomorrow if K levels acceptable. Bridget Oneill MD Apr 24, 2017 14:15
[2017-04-24] MEDS: ACETAMINOPHEN/HYDROcodone 325 MG/5 MG TAB PO PRN ×3 (14:40→22:30)
[2017-04-24] MEDS ORDERED: MORPHINE SULFATE 4 MG/ML INJ IV PRN (16:00)
[2017-04-24] MEDS: SUCRALFATE 1 GM TAB PO SCH (16:00)
[2017-04-24] MEDS ORDERED: MAGNESIUM SULFATE INJ 4 GM in DEXTROSE 5% IN WATER 100ML INJ 92 ML IV ONE ×2 (17:00)
[2017-04-25] MEDS: ACETAMINOPHEN/HYDROcodone 325 MG/5 MG TAB PO PRN ×4 (02:48→16:07)
[2017-04-25 04:00] VITALS: BP 91/53; PULSE 74; RESP 16; TEMP 97.6; O2SAT 97
[2017-04-25] MEDS: SUCRALFATE 1 GM TAB PO SCH ×2 (06:35→16:00)
[2017-04-25 07:19] LABS: BICARBONATE 20.3 MEQ/L (21.0-32.0); MAGNESIUM 2.5 MG/DL (1.5-2.5); POTASSIUM 3.3 MEQ/L (3.5-5.1)
[2017-04-25] MEDS: POTASSIUM CHLORIDE 10 MEQ CONTROLLED RELEASE TAB PO SCH (07:45)
[2017-04-25] MEDS: DOCUSATE SODIUM 50 MG/SENNA 8.6 MG TAB PO SCH (07:45)
[2017-04-25] MEDS: DIAZEPAM 5 MG TAB PEG PRN ×2 (07:45→16:07)
[2017-04-25] MEDS: HEPARIN SODIUM - SQ 10,000 UNITS/ML VIAL SQ SCH (07:46)
[2017-04-25] MEDS: SODIUM CHLORIDE 0.9% FLUSH 10 ML FLUSH IV FLUSH SCH ×2 (07:53→07:54)
[2017-04-25] MEDS: MUPIROCIN 2% OINT 22 GM TUBE TOPICAL SCH (07:54)
[2017-04-25 08:00] VITALS: BP 104/64; PULSE 64; PULSE 93; RESP 18; TEMP 98.4; O2SAT 98
[2017-04-25] MEDS ORDERED: K-PHTAB PO (10:52)
[2017-04-25] MEDS ORDERED: SUCR1S PEG (10:52)
[2017-04-25] MEDS ORDERED: CHOL1CAP24 PO (10:52)
[2017-04-25] MEDS ORDERED: MAGN400T2 PEG (10:52)
[2017-04-25] MEDS ORDERED: HYDR-3516 PO (10:52)
[2017-04-25] MEDS ORDERED: PANT40TA3 PO (10:52)
[2017-04-25] MEDS ORDERED: DIAZ5 PEG (10:52)
[2017-04-25] MEDS ORDERED: POTA-163 PO (10:52)
--- NOTE | 2017-04-25 10:54 | HHI.DS ---
Discharge Summary Admission Date Apr 22, 2017 at 00:00 Discharge Date: Apr 25, 2017 Admitting Diagnosis (1) Hypokalemia ICD Code: E87.6 (2) Gastroparesis ICD Code: K31.84 (3) SHABANA (acute kidney injury) ICD Code: N17.9 (4) UTI (urinary tract infection) ICD Code: N39.0 (5) Infection of PEG site ICD Code: K94.22 Procedures None Brief History - From Admission HPI form the admitting physician. This is a 41-year-old female with a PMH of Gastroparesis, Gastritis, s/p PEG Tube Placement, Anxiety and Bipolar Disorder who presented to the ER w/ complaints of generalized muscle cramping and purulent drainage from PEG. Multiple admissions in the past for Intractable Nausea/Vomiting and profound Hypokalemia, s/p eval by GI w/ EGD no clear etiology of symptoms. Recent admit 03/08-03/18/17 for same. Has upcoming appt w/ GI however has not been seen as of yet. States she started having back/abdominal cramping approx 4 days ago, now progressively worse. Called PCP office, but hadn't heard back and decided to come to ER. Had transient episode of nausea/vomiting 3 days ago, however now improved. Able to take PO, currently on regular diet during day and tube feeds at night, tolerating well. On arrival, BP 121/68, HR 65, O2 sat 98% on RA, Afebrile. CBC essentially unremarkable. K+ 2.6. Creatinine 2.67, previously 1.15 on 03/21/17. Calcium 10.2. Lactic Acid 1.0. UA with small LE and bacteriuria. CBC/BMP: 04/23/17 1043 04/25/17 0615 Significant Findings Laboratory Tests Test 04/22/17 04/22/17 04/23/17 04/24/17 11:59 17:10 10:43 07:11 Red Blood Count 3.53 MIL/MM3 3.50 MIL/MM3 (4.00-5.30) (4.00-5.30) Hemoglobin 9.9 GM/DL 9.8 GM/DL (11.6-15.3) (11.6-15.3) Hematocrit 31.1 % 30.6 % (35.0-46.0) (35.0-46.0) Monocytes (%) (Auto) 10.7 % 9.8 % (0.0-8.0) (0.0-8.0) Potassium Level 2.8 MEQ/L 3.2 MEQ/L 2.8 MEQ/L 3.1 MEQ/L (3.5-5.1) (3.5-5.1) (3.5-5.1) (3.5-5.1) Blood Urea Nitrogen 39 MG/DL (7-18) 31 MG/DL (7-18) 22 MG/DL (7-18) Creatinine 2.05 MG/DL 1.79 MG/DL 1.30 MG/DL (0.50-1.00) (0.50-1.00) (0.50-1.00) Estimat Glomerular Filtration 27 ML/MIN (>89) 31 ML/MIN (>89) 45 ML/MIN (>89) 66 ML/MIN (>89) Rate Calcium Level 7.3 MG/DL 7.7 MG/DL 7.8 MG/DL 8.4 MG/DL (8.5-10.1) (8.5-10.1) (8.5-10.1) (8.5-10.1) Protein Corrected Calcium 7.9 MG/DL (8.5-10.1) Total Bilirubin 0.1 MG/DL (0.2-1.0) Aspartate Amino Transf 10 U/L (15-37) (AST/SGOT) Alkaline Phosphatase 39 U/L (45-117) Total Protein 6.0 GM/DL (6.4-8.2) Albumin 3.0 GM/DL (3.4-5.0) Chloride Level 111 MEQ/L 111 MEQ/L 113 MEQ/L (98-107) (98-107) (98-107) Random Glucose 108 MG/DL 124 MG/DL (74-106) (74-106) Eosinophils (%) (Auto) 4.8 % (0.0-4.0) Eosinophils # (Auto) 0.5 TH/MM3 (0-0.4) Ovalocytes 1+ (NORMAL) Carbon Dioxide Level 18.9 MEQ/L 20.0 MEQ/L (21.0-32.0) (21.0-32.0) Test 04/25/17 06:15 Potassium Level 3.3 MEQ/L (3.5-5.1) Chloride Level 113 MEQ/L (98-107) Carbon Dioxide Level 20.3 MEQ/L (21.0-32.0) Blood Urea Nitrogen 19 MG/DL (7-18) Estimat Glomerular Filtration 64 ML/MIN (>89) Rate Random Glucose 127 MG/DL (74-106) Calcium Level 8.3 MG/DL (8.5-10.1) PE at Discharge GENERAL: This is a well-nourished, well-developed patient, in no apparent distress. Very poor dentition CARDIOVASCULAR: Normal rate and regular rhythm without murmurs, gallops, or rubs. RESPIRATORY: Good respiratory efforts. Breath sounds equal and clear to auscultation bilaterally. GASTROINTESTINAL: Abdomen soft, mild TTP. Normal active bowel sounds MUSCULOSKELETAL: Extremities without cyanosis, or edema. NEURO: Alert & Oriented x4 to person, place, time, situation. Moves all ext x4 PSYCH: Appropriate mood and affect. Pt update on day of discharge Patient reports she is feeling okay except for her chronic abdominal discomfort. No nausea or vomiting. Hospital Course 41 yo female with recurrent hypokalemia readmitted for the same. Evaluation and treatment course detailed below: 1. Recurrent hypokalemia: Multiple admissions for same w/ unclear etiology. Patient did report she is running out of her medication and requested refills. Uncertain of her compliance. Has upcoming appt w/ GI and pending referral to [facility] for further eval. Telemetry unremarkable. -Potassium was replaced aggressively. Magnesium also replaced. Patient's potassium level improved to an acceptable level. She was discharged on the potassium replacement regimen. She is advised to follow-up outpatient with GI in her PCP for repeat labs. 2. Gastroparesis: Currently stable without nausea/vomiting. Most of it likely related to chronic pain. Pain medication deescalated. Symptoms improved. Patient discharged on a limited supply of norco 3. SHABANA: Resolved with IV hydration. Continue to monitor. 4. UTI: U/a w/ small LE, bacteriuria. UC shows mixed narayan, containment. Cipro discontinued. 5. PEG tube site superficial infection: Wound culture at the site shows staph aureus. Ordered Bactroban. Pt Condition on Discharge: Good Discharge Disposition: Discharge Home Discharge Time: <= 30 minutes Discharge Instructions DIET: Follow Instructions for: As Tolerated, No Restrictions, On Tube Feeding Activities you can perform: Regular-No Restrictions Follow up Referrals: PCP Follow-up - 2-3 Days New Medications: Diazepam (Valium) 5 Mg Tab 5 MG PEG Q8HR PRN ANXIETY #10 TAB Hydrocodone-Acetaminophen (Hydrocodone-Acetaminophen) 5-325 mg Tab 1 TAB PO Q4H PRN PAIN GREATER THAN 5 #10 TAB Changed Medications: Potassium Chloride ER (Potassium Chloride ER) 20 Meq Tab 40 MEQ PO TID Electrolyte Replacement #90 Ref 0 TAB (Changed from: Potassium Chloride Microencaps 20 Meq Tab 40 Meq PO TID #90 TAB) Continued Medications: Cholecalciferol (Vitamin D3) 10,000 Unit Cap 42816 UNITS PO Q3D @ HS Nutritional Supplement #1 Ref 0 BOTTLE (This prescription has been renewed) Magnesium Oxide (Magnesium Oxide) 400 Mg Tab 400 MG PEG TID Nutritional Supplement #90 Ref 0 TAB (This prescription has been renewed) Pantoprazole (Pantoprazole) 40 Mg Tab 40 MG PO HS Reflux #30 Ref 0 TAB (This prescription has been renewed) Polyethylene Glycol 3350 Powder (Polyethylene Glycol 3350 Powder) 17 Gm Pow 17 GM G-TUBE DAILY PRN CONSTIPATION #100 GM Potassium Phosphate Monobasic (K-Phos) 500 Mg Tab 1000 MG PO PCHS Electrolyte Replacement #240 Ref 3 TAB (This prescription has been renewed) Sucralfate Liq (Sucralfate Liq) 1 Gm/10 Ml Bernadette 1 GM PEG ACHS Electrolyte Replacement #100 GM (This prescription has been renewed) Discontinued Medications: Diazepam (Valium) 10 Mg Tab 10 MG PEG Q8HR PRN ANXIETY Ref 0 TAB Magnesium Citrate (Magnesium Citrate) 100 Mg Tab 100 MG PO HS CONSTIPATION Ref 0 TAB Nystatin Liq (Nystatin Liq) 100,000 unit/ml Susp 5 ML SWISH-SWAL QID Infection #100 Ref 0 ML Potassium Bicarb-Chloride Effervescent (Effervescent Potassium Chloride 25 Meq) 25 Meq Tab 25 MEQ PEG TID Electrolyte Replacement #90 Ref 3 TAB Bridget Oneill MD Apr 25, 2017 10:54
--- NOTE | 2017-04-25 10:54 | HHI.DCPOC ---
Discharge Care Plan Diagnosis: (1) Gastroparesis (2) Abdominal pain (3) Hypokalemia (4) SHABANA (acute kidney injury) Goals to Promote Your Health * To prevent worsening of your condition and complications * To maintain your health at the optimal level Directions to Meet Your Goals Take your medications as prescribed Follow your dietary instruction Follow activity as directed Keep your appointments as scheduled Take your immunizations and boosters as scheduled If your symptoms worsen call your PCP, if no PCP go to Urgent Care Center or Emergency Room Smoking is Dangerous to Your Health. Avoid second hand smoke Call the 24-hour hour crisis hotline for domestic abuse at Bridget Oneill MD Apr 25, 2017 10:54
[2017-04-25] MEDS ORDERED: POTASSIUM CHLORIDE 10 MEQ CONTROLLED RELEASE TAB PO ONE (11:45)
[2017-04-25] MEDS: PANTOPRAZOLE SODIUM 40 MG VIAL IV PUSH SCH (11:56)
--- NOTE | 2017-04-25 14:53 | HHI.FF ---
Face to Face Verification Diagnosis: (1) Esophagitis (2) S/P percutaneous endoscopic gastrostomy (PEG) tube placement (3) Nausea vomiting and diarrhea (4) Intractable nausea and vomiting (5) Abdominal pain Home Health Nursing Order: Medical education Nursing assessment with vital signs I have seen patient Brisa Hernandez on 04/25/17. My clinical findings support the need for the requested home health care services because: Med compliance is questionable I certify that my clinical findings support that this patient is homebound because: Need for psychosocial assistance Bridget Oneill MD Apr 25, 2017 14:53
[2017-04-25 17:58] VITALS: PULSE 86
== END 2017-04-25 18:43 | disposition home or self-care (01) | DRG 641 ==
LOC: NEPC 21:20 → NEDA 04-22 → HOCB 04-22 02:24
PROVIDERS: ADMIT Family Medicine; ATTEND Family Medicine
DX: E87.6 Hypokalemia (principal); N17.9 Acute kidney failure, unspecified; K31.84 Gastroparesis; Z93.1 Gastrostomy status; F41.9 Anxiety disorder, unspecified; F31.9 Bipolar disorder, unspecified; K29.70 Gastritis, unspecified, without bleeding
CPT/HCPCS: 80048; 80053; 81001; 83605; 83690; 83735; 85025; 85610; 85730; 86403; 87040; 87070; 87077; 87086; 87147; 87186; 87205; 93005; C9113; J0744; J1644; J2270; J3475; J3480; J7030

== ENCOUNTER 2017-05-16 21:31 | Inpatient (IN) | payer OTHER ==
[~2017-05-16] VITALS: Ht 175.3 cm; Wt 55.6 kg
[~2017-05-16 21:31] MED LIST changes: +HYDR-3516 PO; -KLYTECL PEG; -MAGN100T2 PO; +MAGN400T2 PEG; -MAGN400T3 PEG; -MAGN400T3 PO; -NUTR-189 J-TUBE; -NYST1000 SWISH-SWAL; +POTA-163 PO; -POTA20TA5 PO; -PROT40TA PO; -SUCR1S PO
[2017-05-16] MEDS ORDERED: SODIUM CHLORIDE 0.9% FLUSH 10 ML FLUSH IVF PRN (21:45)
[2017-05-16 22:03] VITALS: BP 119/82; PULSE 88; RESP 20; TEMP 99.1; O2SAT 97
--- NOTE | 2017-05-16 22:48 | PD ---
HPI . Profound weakness Chief Complaint: General Weakness Time Seen by Provider: 21:42 Travel History International Travel<30 days: No Contact w/Intl Traveler<30days: No Traveled to known affect area: No History of Present Illness HPI Patient presents with the chief complaint of recurrent profound weakness. She states that she is so weak that she cannot hold her head up. Patient reports a history of hypokalemia and she feels that she has the same tonight. She states that the etiology of her hypokalemia is unknown. She is on replacement potassium along with placement magnesium. Despite this, she continues to have episodes of hypokalemia. This patient also has a history of gastroparesis and has a PEG tube. She takes nutrition both orally and through the PEG tube. She also has a history of anxiety disorder and bipolar disorder. She reports a 150 pound weight loss over the last year. 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) Cardiovascular Problems: Yes High Cholesterol: No Chemotherapy: No Chest Pain: No Congestive Heart Failure: No COPD: No Cerebrovascular Accident: No Diabetes: No Diminished Hearing: No Endocrine: Yes (HX ENDOMETRIOUSIS) Gastrointestinal Disorders: Yes GERD: Yes Genitourinary: Yes Headaches: Yes Hiatal Hernia: No Heparin Induced Thrombocytopen: No Hypertension: No Immune Disorder: No Implanted Vascular Access Dvce: No Kidney Stones: Yes Musculoskeletal: No Neurologic: Yes Psychiatric: No Reproductive: Yes Respiratory: No Immunizations Current: Yes Migraines: Yes Pneumonia: Yes Radiation Therapy: No Renal Failure: No Seizures: Yes (juvenile epilepsy) Sickle Cell Disease: No Sleep Apnea: No Thyroid Disease: No Ulcer: Yes (Pt states she has severe ulcers from throat to rectum) Tetanus Vaccination: Unknown PNEUMOCCOCAL Vaccine (Year): 3 ?: Not LMP: 05/12/2017 : 2 Para: 1 Miscarriage: 1 : 0 Ectopic : Yes (AT 17 YEARS OF AGE) Ovarian Cysts: Yes Past Surgical History Abdominal Surgery: Yes (multiple Laps) AICD: No Appendectomy: Yes Arteriovenous Shunt: No Cardiac Surgery: No Ear Surgery: No Endocrine Surgery: Yes Eye Surgery: No Genitourinary Surgery: Yes (Interstitial cystitis) Gynecologic Surgery: Yes Hysterectomy: Yes (PARTIAL OOPHERECTOMY AND PARTIAL SALPINECTOMY) Insulin Pump: No Joint Replacement: No Neurologic Surgery: No Oral Surgery: Yes (Removal of abscess) Pacemaker: No Thoracic Surgery: No Other Surgery: Yes (endometriosis, ovarian cyst,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,appendectomy, cervix partial re) Social History Alcohol Use: No Tobacco Use: No Substance Use: No Allergies-Medications (Allergen,Severity, Reaction): Coded Allergies: Keflex (Verified Allergy, Severe, RASH,SWELLING, 05/16/17) Penicillin (Verified Allergy, Severe, RASH,SWELLING, 05/16/17) Seafood (Verified Allergy, Severe, SWELLING IN THROAT, SOB, 05/16/17) Toradol (Verified Allergy, Severe, RASH, 05/16/17) Compazine (Verified Allergy, Mild, DYSTONIC REACTION, 05/16/17) Phenergan (Verified Allergy, Mild, DYSTONIC REACTION, 05/16/17) Neurontin (Verified Adverse Reaction, Severe, SEIZURES, 05/16/17) *MDRO Multi-Drug Resistant Organism (Verified Adverse Reaction, Unknown, Cleared - 04/21/16, 05/16/17) MRSA axilla/ breast 2009 MRSA PCR (nares) negative - 04/19/16 & 04/21/16 Cleared per Infection Control Reported Meds & Prescriptions Reported Meds & Active Scripts Active Hydrocodone-Acetaminophen 5-325 mg Tab 1 Tab PO Q4H PRN Valium (Diazepam) 5 Mg Tab 5 Mg PEG Q8HR PRN Pantoprazole (Pantoprazole Sodium) 40 Mg Tab 40 Mg PO HS Magnesium Oxide 400 Mg Tab 400 Mg PEG TID K-Phos (Potassium Phosphate Monobasic) 500 Mg Tab 1,000 Mg PO PCHS Sucralfate Liq (Sucralfate) 1 Gm/10 Ml Bernadette 1 Gm PEG ACHS Potassium Chloride ER (Potassium Chloride) 20 Meq Tab 40 Meq PO TID Vitamin D3 (Cholecalciferol) 10,000 Unit Cap 20,000 Units PO Q3D @ HS Polyethylene Glycol 3350 Powder (Polyethylene Glycol) 17 Gm Pow 17 Gm G-TUBE DAILY PRN Review of Systems Except as stated in HPI: all other systems reviewed are Neg General / Constitutional: No: Fever, Chills Eyes: No: Blurred Vision HENT: No: Lightheadedness Cardiovascular: No: Chest Pain or Discomfort Respiratory: No: Shortness of Breath Gastrointestinal: Positive: Nausea, Abdominal Pain Genitourinary: No: Urgency, Frequency, Dysuria Musculoskeletal: Positive: Weakness Neurologic: Positive: Weakness, No: Dizziness, Focal Abnormalities Physical Exam Narrative GENERAL: Thin, chronically ill-appearing woman. SKIN: Warm and dry. HEAD: Atraumatic. Normocephalic. EYES: Pupils equal and round. Extraocular movements are intact. ENT: No nasal bleeding or discharge. Mucous membranes pink and moist. Poor dentition. NECK: Trachea midline. Neck supple. CARDIOVASCULAR: Regular rate and rhythm. Heart sounds normal. RESPIRATORY: No accessory muscle use. Lungs are clear. GASTROINTESTINAL: Abdomen soft, non-tender, nondistended. PEG tube in place. PEG tube insertion site looks clean. MUSCULOSKELETAL: No obvious deformities. No edema. NEUROLOGICAL: Awake and alert. No obvious cranial nerve deficits. Motor grossly within normal limits. Normal speech. PSYCHIATRIC: Appropriate mood and affect; insight and judgment normal. Data Data Last Documented VS Vital Signs Date Time Temp Pulse Resp B/P Pulse Ox O2 Delivery O2 Flow Rate FiO2 05/16/17 23:54 83 20 115/74 99 Room Air 05/16/17 22:03 99.1 Orders Basic Metabolic Panel (Bmp) (05/16/17 21:42) Complete Blood Count With Diff (05/16/17 21:42) Magnesium (Mg) (05/16/17 21:42) Urinalysis - C+S If Indicated (05/16/17 21:42) Ecg Monitoring (05/16/17 21:42) Iv Access Insert/Monitor (05/16/17 21:42) Oximetry (05/16/17 21:42) Sodium Chloride 0.9% Flush (Ns Flush) (05/16/17 21:45) Urine Culture (05/16/17 22:30) Ceftriaxone Inj (Rocephin Inj) (05/17/17 00:00) Potassium Chlor 20 Meq Premix (Kcl 20 Me (05/17/17 00:00) Labs Laboratory Tests Test 05/16/17 22:30 White Blood Count 17.4 TH/MM3 Red Blood Count 4.22 MIL/MM3 Hemoglobin 11.8 GM/DL Hematocrit 35.7 % Mean Corpuscular Volume 84.6 FL Mean Corpuscular Hemoglobin 28.0 PG Mean Corpuscular Hemoglobin 33.1 % Concent Red Cell Distribution Width 15.3 % Platelet Count 256 TH/MM3 Mean Platelet Volume 8.5 FL Neutrophils (%) (Auto) 87.9 % Lymphocytes (%) (Auto) 5.5 % Monocytes (%) (Auto) 5.0 % Eosinophils (%) (Auto) 1.2 % Basophils (%) (Auto) 0.4 % Neutrophils # (Auto) 15.2 TH/MM3 Lymphocytes # (Auto) 1.0 TH/MM3 Monocytes # (Auto) 0.9 TH/MM3 Eosinophils # (Auto) 0.2 TH/MM3 Basophils # (Auto) 0.1 TH/MM3 CBC Comment DIFF FINAL Differential Comment Urine Color YELLOW Urine Turbidity HAZY Urine pH 6.5 Urine Specific [place] 1.017 Urine Protein 30 mg/dL Urine Glucose (UA) NEG mg/dL Urine Ketones NEG mg/dL Urine Occult Blood NEG Urine Nitrite NEG Urine Bilirubin NEG Urine Urobilinogen LESS THAN 2.0 MG/DL Urine Leukocyte Esterase LARGE Urine RBC 1 /hpf Urine WBC 14 /hpf Urine Squamous Epithelial 14 /hpf Cells Urine Bacteria RARE /hpf Urine Hyaline Casts 42 /lpf Urine Mucus FEW /lpf Microscopic Urinalysis Comment CULTURE INDICATED Sodium Level 136 MEQ/L Potassium Level 1.9 MEQ/L Chloride Level 98 MEQ/L Carbon Dioxide Level 24.2 MEQ/L Anion Gap 14 MEQ/L Blood Urea Nitrogen 47 MG/DL Creatinine 2.37 MG/DL Estimat Glomerular Filtration 23 ML/MIN Rate Random Glucose 113 MG/DL Calcium Level 9.6 MG/DL Magnesium Level 2.0 MG/DL MDM Medical Decision Making Medical Screen Exam Complete: Yes Emergency Medical Condition: Yes Medical Record Reviewed: Yes (the patient's last admission here was for hypokalemia. She also had an infected PEG site which was treated topically with Bactroban.) Differential Diagnosis Differential diagnosis of weakness includes but is not limited to infection, CVA , electrolyte disturbance, renal failure, hypoglycemia, UTI, ACS, acute blood loss Narrative Course Patient presents complaining with profound weakness. She reports a history of hypokalemia and hypomagnesemia. She feels that this is the most likely etiology of her weakness. IV access has been obtained. Labs have been sent. CBC & BMP Diagram 05/16/17 22:30 Her magnesium is normal at 2.0. UA>>large LE, 14 WBCs, rare bact. This patient will need to be admitted to the hospital for treatment of her hypokalemia. I will give her a dose of Rocephin here in the emergency department for her UTI. Diagnosis Primary Impression: Hypokalemia Additional Impression: UTI (urinary tract infection) Qualified Code: N30.00 - Acute cystitis without hematuria Admitting Information Admitting Physician Requests: Admit Condition: Stable Vaishnavi Olivera MD May 16, 2017 22:48
[2017-05-16 23:03] VITALS: BP 130/70; PULSE 86; RESP 20; O2SAT 97
[2017-05-16 23:07] LABS: AUTOMATED NEUTROPHIL # 15.2 TH/MM3 (1.8-7.7); BASOPHIL # 0.1 TH/MM3 (0-0.2); BASOPHIL % 0.4 % (0.0-2.0); EOSINOPHIL # 0.2 TH/MM3 (0-0.4); EOSINOPHIL % 1.2 % (0.0-4.0); HEMATOCRIT 35.7 % (35.0-46.0); HEMO FLAGS DIFF FINAL; LYMPH % 5.5 % (9.0-44.0); MEAN CELL VOLUME 84.6 FL (80.0-100.0); MEAN CORPUSCULAR HGB CONC 33.1 % (32.0-36.0); NEUT % 87.9 % (16.0-70.0); PLATELET COUNT 256 TH/MM3 (150-450); RED BLOOD COUNT 4.22 MIL/MM3 (4.00-5.30); RED CELL DISTRIBUTION WIDTH 15.3 % (11.6-17.2); WHITE BLOOD COUNT 17.4 TH/MM3 (4.0-11.0)
[2017-05-16 23:20] LABS: BACTERIA, URINE RARE /hpf; BLOOD, URINE NEG (NEG); COMMENT (UR) CULTURE INDICATED; CULTURE IF INDICATED CULTURE INDICATED; GLUCOSE,URINE NEG (NEG); HYALINE CAST, URINE 42 /lpf (RARE); KETONE, URINE NEG (NEG); MUCUS URINE FEW /lpf (OCC); NITRITE,URINE NEG (NEG); PH, URINE 6.5 (5.0-8.5); SQUAMOUS EPITHELIAL CELL URINE 14 /hpf (0-5); URINE COLOR YELLOW (YELLW/STRAW)
[2017-05-16 23:28] LABS: BICARBONATE 24.2 MEQ/L (21.0-32.0)
[2017-05-16 23:36] LABS: POTASSIUM 1.9 MEQ/L (3.5-5.1)
[2017-05-16 23:54] VITALS: BP 115/74; PULSE 83; RESP 20; O2SAT 99
[2017-05-17] VITALS (12 sets, daily range): BP systolic 99–142; BP diastolic 62–81; PULSE 68–98; RESP 16–20; TEMP 97.3–98.9; O2SAT 95–100
[2017-05-17] MEDS ORDERED: cefTRIAXone INJ 1,000 MG in SODIUM CHLORIDE 0.9% INJ 25 ML IV ONE ×2
[2017-05-17] MEDS ORDERED: ACETAMINOPHEN 325 MG TAB PO PRN (00:15)
[2017-05-17] MEDS ORDERED: SODIUM CHLORIDE 0.9% FLUSH 10 ML FLUSH IV FLUSH PRN (00:15)
[2017-05-17] MEDS ORDERED: NALOXONE HCL 0.4 MG/ML AMP IV PRN (00:15)
[2017-05-17] MEDS ORDERED: POTASSIUM CHLORIDE 25 MEQ EFFERVESCENT TAB NG ONE ×2 (00:30→05:00)
[2017-05-17] MEDS: ONDANSETRON HCL 4 MG/2 ML VIAL IVP PRN (00:35)
[2017-05-17] MEDS ORDERED: POLYETHYLENE GLYCOL 17 GM PKG G-TUBE PRN (02:15)
[2017-05-17] MEDS: ACETAMINOPHEN/HYDROcodone 325 MG/5 MG TAB PO PRN ×3 (02:19→10:54)
[2017-05-17 03:19] LABS: BICARBONATE 23.8 MEQ/L (21.0-32.0)
[2017-05-17 03:23] LABS: POTASSIUM 2.3 MEQ/L (3.5-5.1)
[2017-05-17] MEDS: POTASSIUM CHLOR 20 MEQ PREMIX 100 ML IV SCH ×2 (03:46)
[2017-05-17] MEDS: DIAZEPAM 5 MG TAB PEG PRN ×2 (03:46→20:26)
--- NOTE | 2017-05-17 04:34 | HHI.HP ---
[facility] Neeraj Gilbert Admission Diagnosis hypokalemia, UTI Diagnoses: (1) Hypokalemia Chief Complaint: Palpitations Travel History International Travel<30 Days: No Contact w/Intl Traveler <30 Da: No Traveled to Known Affected Are: No History of Present Illness Written by Harmony Mckeon, acting as scribe for Dr. Weiner on 05/17/17 at 04:33. The patient reports that her PEG tube "stays infected" and medicines always end up "staying in the tube" despite flushing and proper use. She is on a high potassium diet and jenna claudia supplements paid for by her insurance company. She takes potassium by mouth, K phos, and over the counter potassium. She states that on 05/16/17, she felt like she was "about to have a heat stroke" with palpitations and felt pulsations in arms and became frightened - feels like adrenaline quiroz like you feel "before you get into a car accident". Her head was leaning forward and felt too heavy to lift. Severe pain felt like a corset is around her thorax and is tightened. Reports bruising taking a long time to heal. Potassium was 1.9 in ED. Nausea with vomiting x 2 days and then it stopped. Menstrual bleeding for the entire month and it has stopped. Review of Systems Except as stated in HPI: all other systems reviewed are Neg Past Family Social History Past Medical History SVT Appendix cancer 3 - 4 years ago [facility] Endometriosis Seizures gastroparesis esophagitis GI ulcers Chronic hypokalemia . Past Surgical History Laparoscopy x 4 Cystoscopy - interstitial cystitis - resolved EGD/Colonoscopy . Reported Medications Reported Meds & Active Scripts Active Hydrocodone-Acetaminophen 5-325 mg Tab 1 Tab PO Q4H PRN Valium (Diazepam) 5 Mg Tab 5 Mg PEG Q8HR PRN Pantoprazole (Pantoprazole Sodium) 40 Mg Tab 40 Mg PO HS Magnesium Oxide 400 Mg Tab 400 Mg PEG TID K-Phos (Potassium Phosphate Monobasic) 500 Mg Tab 1,000 Mg PO PCHS Sucralfate Liq (Sucralfate) 1 Gm/10 Ml Bernadette 1 Gm PEG ACHS Potassium Chloride ER (Potassium Chloride) 20 Meq Tab 40 Meq PO TID Vitamin D3 (Cholecalciferol) 10,000 Unit Cap 20,000 Units PO Q3D @ HS Polyethylene Glycol 3350 Powder (Polyethylene Glycol) 17 Gm Pow 17 Gm G-TUBE DAILY PRN . Allergies: Coded Allergies: Keflex (Verified Allergy, Severe, RASH,SWELLING, 05/16/17) Penicillin (Verified Allergy, Severe, RASH,SWELLING, 05/16/17) Seafood (Verified Allergy, Severe, SWELLING IN THROAT, SOB, 05/16/17) Toradol (Verified Allergy, Severe, RASH, 05/16/17) Compazine (Verified Allergy, Mild, DYSTONIC REACTION, 05/16/17) Phenergan (Verified Allergy, Mild, DYSTONIC REACTION, 05/16/17) Neurontin (Verified Adverse Reaction, Severe, SEIZURES, 05/16/17) *MDRO Multi-Drug Resistant Organism (Verified Adverse Reaction, Unknown, Cleared - 04/21/16, 05/16/17) MRSA axilla/ breast 2008 MRSA PCR (nares) negative - 04/19/16 & 04/21/16 Cleared per Infection Control Active Ordered Medications Current Medications Sodium Chloride 2 ml 2 ml UNSCH PRN IVF FLUSH AFTER USING IV ACCESS; Start 09/22 at 21:45; Stop 05/17/17 at 00:12; Status DC Ceftriaxone Sodium 1000 mg/ Sodium Chloride 25 ml @ 50 mls/hr ONCE ONCE IV Last administered on 05/17/17 00:00; Start 05/17/17 at 00:00; Stop 05/17/17 at 00:29; Status DC Potassium Chloride (KCl 20 Meq Premix Inj) 100 ml @ 50 mls/hr Q2H IV Last administered on 05/17/17 03:46; Start 05/17/17 at 00:00; Stop 05/17/17 at 03:59 ; Status DC Sodium Chloride (NS Flush) 2 ml UNSCH PRN IV FLUSH FLUSH AFTER USING IV ACCESS ; Start 05/17/17 at 00:15 Sodium Chloride (NS Flush) 2 ml BID IV FLUSH ; Start 05/17/17 at 09:00 Acetaminophen (Tylenol) 650 mg Q4H PRN PO TEMP > 100.4; Start 05/17/17 at 00:15 Ondansetron HCl (Zofran Inj) 4 mg Q6H PRN IVP NAUSEA OR VOMITING Last administered on 05/17/17 00:35; Start 05/17/17 at 00:15 Naloxone HCl (Narcan Inj) 0.4 mg UNSCH PRN IV SEE LABEL COMMENTS; Start at 00:15 Potassium Bicarb/ Potassium Chloride (K-Lyte Cl Eff) 50 meq ONCE ONCE NG Last administered on 05/17/17 00:30; Start 05/17/17 at 00:30; Stop 05/17/17 at 00:52; Status DC Diazepam (Valium) 5 mg Q8HR PRN PEG ANXIETY Last administered on 05/17/17 03: 46; Start 05/17/17 at 02:15 Acetaminophen/ Hydrocodone Bitart ([place] 5-325 Mg) 1 tab Q4H PRN PO PAIN GREATER THAN 5 Last administered on 05/17/17 02:19; Start 05/17/17 at 02:15 Magnesium Oxide (Mag-Ox) 400 mg TID PEG ; Start 05/17/17 at 09:00 Pantoprazole Sodium (Protonix) 40 mg HS PO ; Start 05/17/17 at 21:00 Polyethylene Glycol (Miralax) 17 gm DAILY PRN G-TUBE CONSTIPATION; Start at 02:15 Potassium Chloride (KCl) 40 meq TID PO ; Start 05/17/17 at 09:00 Potassium Phosphate (K-Phos) 1,000 mg PCHS PO ; Start 05/17/17 at 09:30 Sucralfate (Carafate Liq) 1 gm ACHS PEG ; Start 05/17/17 at 07:00 . Family History Biological mother with systemic lupus - multiple females on biological mothers side have lupus. There's family history of lung CA, thyroid prroblems, breast CA doesn't know father's medical history - adopted . Social History Tobacco: denies Alcohol: denies use Illicit Drugs: denies . Physical Exam Vital Signs Vital Signs Date Time Temp Pulse Resp B/P Pulse Ox O2 Delivery O2 Flow Rate FiO2 05/17/17 01:43 Room Air 05/17/17 00:42 77 20 95 Room Air 05/16/17 23:54 83 20 115/74 99 Room Air 05/16/17 23:03 86 20 130/70 97 Room Air 05/16/17 23:01 88 20 97 05/16/17 22:03 99.1 88 20 119/82 97 Physical Exam GENERAL: This is a thin female patient, who appears anxious and fidgety during visit. SKIN: No rashes. Cool and dry. HEAD: Atraumatic. Normocephalic. EYES: No scleral icterus. No injection or drainage. ENT: Nose without bleeding, purulent drainage. NECK: Trachea midline. No JVD or lymphadenopathy. CARDIOVASCULAR: Regular rate and rhythm without murmurs, gallops, or rubs. RESPIRATORY: Clear to auscultation. Breath sounds equal bilaterally. No wheezes , rales, or rhonchi. GASTROINTESTINAL: Abdomen soft, non-tender, nondistended. No guarding. MUSCULOSKELETAL: Extremities without clubbing, cyanosis, or edema. No calf tenderness. NEUROLOGICAL: Awake and alert. Motor and sensory grossly within normal limits. Normal speech. . Laboratory Laboratory Tests Test 05/16/17 05/17/17 22:30 02:35 White Blood Count 17.4 Red Blood Count 4.22 Hemoglobin 11.8 Hematocrit 35.7 Mean Corpuscular Volume 84.6 Mean Corpuscular Hemoglobin 28.0 Mean Corpuscular Hemoglobin 33.1 Concent Red Cell Distribution Width 15.3 Platelet Count 256 Mean Platelet Volume 8.5 Neutrophils (%) (Auto) 87.9 Lymphocytes (%) (Auto) 5.5 Monocytes (%) (Auto) 5.0 Eosinophils (%) (Auto) 1.2 Basophils (%) (Auto) 0.4 Neutrophils # (Auto) 15.2 Lymphocytes # (Auto) 1.0 Monocytes # (Auto) 0.9 Eosinophils # (Auto) 0.2 Basophils # (Auto) 0.1 CBC Comment DIFF FINAL Differential Comment Urine Color YELLOW Urine Turbidity HAZY Urine pH 6.5 Urine Specific [place] 1.017 Urine Protein 30 Urine Glucose (UA) NEG Urine Ketones NEG Urine Occult Blood NEG Urine Nitrite NEG Urine Bilirubin NEG Urine Urobilinogen LESS THAN 2.0 Urine Leukocyte Esterase LARGE Urine RBC 1 Urine WBC 14 Urine Squamous Epithelial 14 Cells Urine Bacteria RARE Urine Hyaline Casts 42 Urine Mucus FEW Microscopic Urinalysis Comment CULTURE INDICATED Sodium Level 136 140 Potassium Level 1.9 2.3 Chloride Level 98 104 Carbon Dioxide Level 24.2 23.8 Anion Gap 14 12 Blood Urea Nitrogen 47 42 Creatinine 2.37 2.01 Estimat Glomerular Filtration 23 27 Rate Random Glucose 113 94 Calcium Level 9.6 8.9 Magnesium Level 2.0 2.0 Date/Time Procedure Status Source Growth 05/16/17 22:30 Urine Culture Received Urine Clean Catch Pending Result Diagram: 05/16/17 2230 05/17/17 0235 Assessment and Plan Problem List: (1) Hypokalemia ICD Code: E87.6 Status: Resolved (2) UTI (urinary tract infection) ICD Code: N39.0 Status: Resolved (3) Acute on chronic renal failure ICD Code: N17.9 Status: Acute Assessment and Plan Ms. Hernandez is a 41-year-old female with chronic hypokalemia who presents to the ED on 05/16/17 with palpitations. Potassium level was 1.9. Life-threatening hypokalemia not corrected with gi absorption - 12-lead EKG - Potassium increased from 1.9 to 2.3 - continue replacement and monitor potassium levels - discussed with pharmacist - should just give instant release potassium via g- tube and skip oral replacement will d/c KCl ER - continuous cardiac telemetry to monitor cardiac rate and for arrhythmia - We'll consult invasive radiology for Crwezl-k-Aphf placement Acute on chronic renal failure likely secondary to dehydration - BUN 47, Creatinine 2.37, eGFR 23 - IVF hydration with NS + 40 meq KCl at 125 cc/hr - avoid nephrotoxins - recheck bmp in a.m. and follow trends in renal indices UTI suspected - UA consistent with urinary tract infection - Ciprofloxacin 400 mg IV every 12 hours - Await urine culture and change treatment if indicated DVT prophylaxis - Heparin 5000 units subq q8h Discussed Condition With Patient, ER physician, and RN Physician Certification 2 Midnight Certification Type: Admission for Inpatient Services Order for Inpatient Services The services are ordered in accordance with Medicare regulations or non- Medicare payer requirements, as applicable. In the case of services not specified as inpatient-only, they are appropriately provided as inpatient services in accordance with the 2-midnight benchmark. Estimated LOS (days): 3 days is the estimated time the patient will need to remain in the hospital, assuming treatment plan goals are met and no additional complications. Post-Hospital Plan: Home Problem Qualifiers (1) UTI (urinary tract infection): Qualified Code: N30.00 - Acute cystitis without hematuria Harmony Mckeon May 17, 2017 04:34
[2017-05-17] MEDS: NS + KCL 40 MEQ INJ 1,000 ML IV SCH ×2 (06:24→14:02)
[2017-05-17] MEDS: HEPARIN SODIUM - SQ 10,000 UNITS/ML VIAL SQ SCH ×3 (06:25→23:11)
[2017-05-17] MEDS: SUCRALFATE 1 GM/10 ML CUP PEG SCH ×4 (06:25→20:10)
[2017-05-17] MEDS: POTASSIUM CHLORIDE 25 MEQ EFFERVESCENT TAB NG SCH ×3 (06:58→23:38)
[2017-05-17] MEDS ORDERED: POTASSIUM CHLORIDE 10 MEQ CONTROLLED RELEASE TAB PO ONE (08:15)
[2017-05-17 08:28] LABS: BASOPHIL # 0.1 TH/MM3 (0-0.2); BASOPHIL % 0.7 % (0.0-2.0); EOSINOPHIL # 0.4 TH/MM3 (0-0.4); EOSINOPHIL % 3.3 % (0.0-4.0); HEMO FLAGS DIFF FINAL; LYMPH % 19.7 % (9.0-44.0); LYMPHOCYTE # 2.6 TH/MM3 (1.0-4.8); MEAN CELL VOLUME 85.9 FL (80.0-100.0); MEAN CORPUSCULAR HEMOGLOBIN 28.1 PG (27.0-34.0); MEAN CORPUSCULAR HGB CONC 32.8 % (32.0-36.0); MONO % 8.1 % (0.0-8.0); NEUT % 68.2 % (16.0-70.0); PLATELET COUNT 215 TH/MM3 (150-450); RED CELL DISTRIBUTION WIDTH 15.4 % (11.6-17.2); WHITE BLOOD COUNT 13.3 TH/MM3 (4.0-11.0)
[2017-05-17 08:57] LABS: BICARBONATE 20.9 MEQ/L (21.0-32.0)
[2017-05-17] MEDS ORDERED: POTASSIUM CHLORIDE 20 MEQ CONTROLLED RELEASE TAB PO SCH (09:00)
[2017-05-17 09:04] LABS: POTASSIUM 2.2 MEQ/L (3.5-5.1)
[2017-05-17] MEDS: SODIUM CHLORIDE 0.9% FLUSH 10 ML FLUSH IV FLUSH SCH ×2 (09:35→20:27)
[2017-05-17] MEDS: POTASSIUM PHOSPHATE MONOBASIC 500 MG TAB PO SCH ×4 (09:36→20:26)
[2017-05-17] MEDS: MAGNESIUM OXIDE 400 MG TAB PEG SCH ×3 (09:36→18:08)
[2017-05-17] MEDS ORDERED: VANCOMYCIN INJ 1,000 MG in SODIUM CHLOR 0.9% 250 ML INJ 250 ML IV SCH ×2 (09:45→16:15)
[2017-05-17] MEDS: CIPROFLOXACIN 400 MG PREMIX 200 ML IV SCH ×2 (09:47→20:26)
[2017-05-17] MEDS ORDERED: oxyCODONE/ACETAMINOPHEN 5 MG/325 MG TAB PO PRN (12:45)
[2017-05-17] MEDS ORDERED: diphenhydrAMINE HCL 50 MG/ML VIAL IV PUSH ONE (12:45)
[2017-05-17] MEDS ORDERED: methylPREDNISolone SOD SUCC 125 MG/2 ML VIAL IV PUSH ONE (12:45)
[2017-05-17] MEDS ORDERED: MIDAZOLAM HCL 5 MG/5 ML VIAL ONE (14:48)
[2017-05-17] MEDS ORDERED: fentaNYL CITRATE 250 MCG/5 ML AMP ONE (14:49)
[2017-05-17] MEDS ORDERED: LIDOCAINE 1%/EPINEPHrine 1:100,000 SOLN 20 ML VIAL ONE (14:54)
[2017-05-17] MEDS ORDERED: HYDROmorphone HCL PF 2 MG/ML VIAL ONE (15:30)
[2017-05-17] MEDS ORDERED: MIDAZOLAM HCL 2 MG/2 ML VIAL ONE (15:41)
--- NOTE | 2017-05-17 16:06 | PD.RAD ---
Post Procedure Progress Note Pre Procedure Diagnosis: (1) Anemia (2) Hypokalemia Post Procedure Diagnosis: (1) Anemia (2) Hypokalemia Procedure Date: May 17, 2017 Supervising Radiologist: Vic Williamson JR Proceduralist/Assist: Ksenia Machado, RT(R), Elizabeth Vernon RT(R)() Anesthesia: Conscious Sedation Plan of Activity Patient to Unit: ROPU Patient Condition: Good Additional Comments: Attempted port placement. Unable to get patient adequately sedated for port placement. Will schedule with anesthesia. See PACS Report for procedural detail/treatment Jr. Clay,Vic Francis MD May 17, 2017 16:06
[2017-05-17] MEDS: diphenhydrAMINE HCL 50 MG/ML VIAL IV PUSH PRN (16:23)
--- NOTE | 2017-05-17 16:25 | RADRPT ---
EXAM DATE/TIME: 05/17/2017 00:00 [facility] COMPARISON : No previous studies available for comparison. INDICATIONS : Patient with history of hypokalemia in need of port placement with MEDICATIONS: 1. Dilaudid2 mg 2. Versed 6 mg 3. Fentanyl 250 mcg 4. Benadryl 50 mg IMAGING STUDIES: The patient was brought to the interventional suite for port placement. Following appropriate consent the patient was placed on the angiography table in preparation for the procedure. Conscious sedation with continuous monitoring was performed. The procedure was terminated as we were unable to get the patient appropriately sedated. The patient will need anesthesia. ASSESSMENT: Unable to get the patient adequately sedated for port placement. PLAN: Scheduled with anesthesia. TIME SPENT: 30 minutes Vic Williamson Jr., MD on May 17, 2017 at 16:22 Board Certified Radiologist. This report was verified electronically.
[2017-05-17] MEDS: oxyCODONE/ACETAMINOPHEN 10 MG/325 MG TAB PO PRN ×2 (18:06→23:11)
[2017-05-17] MEDS: methylPREDNISolone SOD SUCC 40 MG/1 ML VIAL IV PUSH SCH ×2 (18:07→23:10)
[2017-05-17] MEDS: PANTOPRAZOLE SOD 40 MG DELAYED RELEASE TAB PO SCH (20:26)
[2017-05-18] VITALS (7 sets, daily range): BP systolic 100–138; BP diastolic 56–89; PULSE 66–88; RESP 16–18; TEMP 97.2–99.3; O2SAT 95–100
[2017-05-18] MEDS: HEPARIN SODIUM - SQ 10,000 UNITS/ML VIAL SQ SCH ×3 (05:46→22:24)
[2017-05-18] MEDS: oxyCODONE/ACETAMINOPHEN 10 MG/325 MG TAB PO PRN ×5 (05:46→22:26)
[2017-05-18] MEDS: NS + KCL 40 MEQ INJ 1,000 ML IV SCH ×3 (05:46→22:24)
[2017-05-18] MEDS: methylPREDNISolone SOD SUCC 40 MG/1 ML VIAL IV PUSH SCH ×3 (06:01→17:41)
[2017-05-18] MEDS: SUCRALFATE 1 GM/10 ML CUP PEG SCH ×4 (07:00→21:59)
[2017-05-18] MEDS: CIPROFLOXACIN 400 MG PREMIX 200 ML IV SCH ×2 (09:00→22:01)
[2017-05-18] MEDS: SODIUM CHLORIDE 0.9% FLUSH 10 ML FLUSH IV FLUSH SCH ×2 (09:07→21:00)
[2017-05-18] MEDS: POTASSIUM PHOSPHATE MONOBASIC 500 MG TAB PO SCH ×5 (09:08→22:00)
[2017-05-18] MEDS: MAGNESIUM OXIDE 400 MG TAB PEG SCH ×3 (09:08→17:40)
[2017-05-18] MEDS: POTASSIUM CHLOR 20 MEQ PREMIX 100 ML IV SCH ×2 (09:45→21:59)
[2017-05-18] MEDS: DIAZEPAM 5 MG TAB PEG PRN ×2 (10:03→17:45)
--- NOTE | 2017-05-18 11:59 | HHI.PR ---
Subjective Remarks Potassium levels have remained stable in the middle twos and has not had significant improvement. I suspect she is not absorbing potassium well via her GI tract. IV replacement is pending and would be able to occur quicker if she had a central line. Objective Vital Signs Date Time Temp Pulse Resp B/P Pulse Ox O2 Delivery O2 Flow Rate FiO2 05/18/17 08:19 98.4 70 18 100/56 97 05/18/17 04:00 97.2 66 18 100/65 99 05/18/17 00:00 98.3 87 18 138/68 95 05/17/17 21:00 98.6 98 18 142/70 95 05/17/17 20:15 98.9 80 18 134/80 100 05/17/17 16:55 98.7 74 18 108/62 99 05/17/17 16:35 73 16 111/67 95 05/17/17 16:20 75 16 99/64 96 05/17/17 16:05 98.5 77 18 123/75 97 05/17/17 12:00 97.3 73 18 125/81 95 I/O 05/17/17 05/17/17 05/17/17 05/18/17 05/18/17 05/18/17 07:00 15:00 23:00 07:00 15:00 23:00 Intake Total 725 ml 664 ml 840 ml Output Total 480 ml Balance 245 ml 664 ml 840 ml Intake Oral 500 ml 840 ml IV Total 225 ml 664 ml Output Gastric Drainage Total 480 ml # Voids 1 4 3 # Bowel Movements 0 0 Result Diagram: 05/17/17 0726 05/17/17 1314 Objective Remarks GENERAL: NAD, A&Ox3 HEAD: Normocephalic. NECK: Supple, trachea midline. No lymphadenopathy. EYES: No scleral icterus. No injection or drainage. CARDIOVASCULAR: Regular rate and rhythm without murmurs, gallops, or rubs. RESPIRATORY: Breath sounds equal bilaterally. No accessory muscle use. GASTROINTESTINAL: Abdomen soft, non-tender, nondistended. MUSCULOSKELETAL: No cyanosis, or edema. SKIN: Warm and dry. Malar Rash. Tooth Loss. Gingivitis. Hair Loss. NEURO: No focal neurological deficitis. A/P Problem List: (1) Exacerbation of systemic lupus erythematosus ICD Code: M32.9 (2) SHABANA (acute kidney injury) ICD Code: N17.9 (3) Hypokalemia ICD Code: E87.6 Assessment and Plan Assessment and Plan 41 old female with lupus and related chronic hypokalemia admitted with a potassium level I.9 and palpitations. Severe hypokalemia Poorly correct with GI absorption Potassium levels are staying between 2.0 and 2.5, despite treatment Attempting IV replacement, this treatment is limited by burning sensations at IV site Lupus related pathology of the GI tract is suspected to inhibit her absorption and also to waste potassium Aagbnn-d-Dlcb placement pending Follow on telemetry Lupus exacerbation Systemic steroids started Follow for improvement She has a severe case of lupus and would benefit from immune modulation therapies long-term Acute on chronic renal failure Improved with hydration Not normalized, chronic kidney disease related to lupus is likely present IV hydration Monitor renal function UTI Continue Rocephin Follow urine culture DVT prophylaxis Heparin Discharge planning Potassium was corrected and lupus exacerbation most improve prior to discharge Troy Hair MD May 18, 2017 11:59
[2017-05-18 12:21] LABS: HEMATOCRIT 30.2 % (35.0-46.0); MEAN CELL VOLUME 86.7 FL (80.0-100.0); MEAN CORPUSCULAR HEMOGLOBIN 28.3 PG (27.0-34.0); MEAN CORPUSCULAR HGB CONC 32.7 % (32.0-36.0); PLATELET COUNT 224 TH/MM3 (150-450); RED BLOOD COUNT 3.49 MIL/MM3 (4.00-5.30); RED CELL DISTRIBUTION WIDTH 15.4 % (11.6-17.2); WHITE BLOOD COUNT 14.9 TH/MM3 (4.0-11.0)
[2017-05-18 12:51] LABS: REVIEW FLAG AUTO DIFF
[2017-05-18 13:42] LABS: BICARBONATE 18.9 MEQ/L (21.0-32.0)
[2017-05-18 13:46] LABS: POTASSIUM 2.5 MEQ/L (3.5-5.1)
[2017-05-18] MEDS: DOCUSATE SODIUM 100 MG CAP PO SCH ×2 (21:00→21:59)
[2017-05-18] MEDS: PANTOPRAZOLE SOD 40 MG DELAYED RELEASE TAB PO SCH (22:02)
[2017-05-19] VITALS (7 sets, daily range): BP systolic 104–146; BP diastolic 65–101; PULSE 66–96; RESP 16–19; TEMP 97.2–99; O2SAT 94–100
[2017-05-19] MEDS: methylPREDNISolone SOD SUCC 40 MG/1 ML VIAL IV PUSH SCH ×5 (00:30→23:08)
[2017-05-19] MEDS: DIAZEPAM 5 MG TAB PEG PRN ×2 (02:15→18:27)
[2017-05-19] MEDS: oxyCODONE/ACETAMINOPHEN 10 MG/325 MG TAB PO PRN ×5 (04:07→23:08)
[2017-05-19] MEDS: HEPARIN SODIUM - SQ 10,000 UNITS/ML VIAL SQ SCH ×3 (06:00→20:32)
[2017-05-19] MEDS: SUCRALFATE 1 GM/10 ML CUP PEG SCH ×4 (06:45→20:33)
[2017-05-19] MEDS: DOCUSATE SODIUM 100 MG CAP PO SCH ×2 (09:00→20:33)
[2017-05-19] MEDS: NS + KCL 40 MEQ INJ 1,000 ML IV SCH ×3 (09:35→23:09)
[2017-05-19] MEDS: POTASSIUM PHOSPHATE MONOBASIC 500 MG TAB PO SCH ×4 (09:36→20:34)
[2017-05-19] MEDS: CIPROFLOXACIN 400 MG PREMIX 200 ML IV SCH ×2 (09:36→20:33)
[2017-05-19] MEDS: MAGNESIUM OXIDE 400 MG TAB PEG SCH ×3 (09:37→18:27)
[2017-05-19] MEDS: POTASSIUM CHLOR 20 MEQ PREMIX 100 ML IV SCH ×2 (09:38→20:33)
[2017-05-19] MEDS: SODIUM CHLORIDE 0.9% FLUSH 10 ML FLUSH IV FLUSH SCH ×2 (09:38→20:34)
[2017-05-19 10:54] LABS: FREE T3 1.17 PG/ML (2.18-3.98); MAGNESIUM 1.9 MG/DL (1.5-2.5)
[2017-05-19 11:07] LABS: POTASSIUM 2.6 MEQ/L (3.5-5.1)
[2017-05-19 11:38] LABS: HEMATOCRIT 29.6 % (35.0-46.0); MEAN CELL VOLUME 89.4 FL (80.0-100.0); MEAN CORPUSCULAR HGB CONC 31.4 % (32.0-36.0); PLATELET COUNT 242 TH/MM3 (150-450); RED BLOOD COUNT 3.31 MIL/MM3 (4.00-5.30); RED CELL DISTRIBUTION WIDTH 15.8 % (11.6-17.2); REVIEW FLAG FINAL
[2017-05-19] MEDS ORDERED: LEVOTHYROXINE SODIUM 100 MCG VIAL IV PUSH ONE (12:00)
--- NOTE | 2017-05-19 14:26 | HHI.PR ---
Subjective Remarks Slight increase in potassium today. Potassium is increased from 2.5-2.6. She is still unable to tolerate IV potassium at higher rates or higher concentrations secondary to burning. PICC line pending. Complaints of pain today. Objective Vital Signs Date Time Temp Pulse Resp B/P Pulse Ox O2 Delivery O2 Flow Rate FiO2 05/19/17 12:54 98.1 96 19 146/92 94 05/19/17 09:30 70 05/19/17 08:06 97.7 70 18 112/69 100 05/19/17 04:00 97.2 66 16 104/65 96 05/19/17 00:30 97.2 83 16 145/84 100 05/18/17 20:59 98.1 87 16 133/89 96 05/18/17 18:00 88 05/18/17 15:56 99.3 86 18 138/88 100 I/O 05/18/17 05/18/17 05/18/17 05/19/17 05/19/17 05/19/17 06:59 14:59 22:59 06:59 14:59 22:59 Intake Total 447 ml Balance 447 ml Intake Oral 360 ml IV Total 87 ml # Voids 6 3 3 # Bowel Movements 1 Result Diagram: 05/19/1740 05/19/17 0940 Objective Remarks GENERAL: NAD, A&Ox3 HEAD: Normocephalic. NECK: Supple, trachea midline. No lymphadenopathy. EYES: No scleral icterus. No injection or drainage. CARDIOVASCULAR: Regular rate and rhythm without murmurs, gallops, or rubs. RESPIRATORY: Breath sounds equal bilaterally. No accessory muscle use. GASTROINTESTINAL: Abdomen soft, non-tender, nondistended. MUSCULOSKELETAL: No cyanosis, or edema. SKIN: Warm and dry. Malar Rash. Tooth Loss. Gingivitis. Hair Loss. NEURO: No focal neurological deficitis. A/P Problem List: (1) Exacerbation of systemic lupus erythematosus ICD Code: M32.9 (2) SHABANA (acute kidney injury) ICD Code: N17.9 (3) Hypokalemia ICD Code: E87.6 Assessment and Plan Assessment and Plan 41 old female with lupus and related chronic hypokalemia admitted with a potassium level I.9 and palpitations. Slow going improvement in potassium levels. Continue treatment. Anesthesia needed for port placement, but potassium correction was improved prior to this. Severe hypokalemia Poorly correct with GI absorption Potassium levels are improving slowly secondary to inability to replace potassium IV secondary to burning. Attempting IV replacement, this treatment is limited by burning sensations at IV site Lupus related pathology of the GI tract is suspected to inhibit her absorption and also to waste potassium Wxfvrc-v-[id number] placement pending Follow on telemetry Lupus exacerbation Systemic steroids started Follow for improvement She has a severe case of lupus and would benefit from immune modulation therapies long-term Acute on chronic renal failure Improved with hydration Not normalized, chronic kidney disease related to lupus is likely present IV hydration Monitor renal function UTI Continue Rocephin Follow urine culture DVT prophylaxis Heparin Discharge planning Potassium was corrected and lupus exacerbation most improve prior to discharge Troy Hair MD May 19, 2017 14:26
[2017-05-19] MEDS: HYDROmorphone HCL PF 1 MG/ML VIAL IV PUSH PRN ×2 (16:11→20:32)
--- NOTE | 2017-05-19 18:22 | RADRPT ---
EXAM DATE/TIME: 05/19/2017 17:40 [facility] COMPARISON: No previous studies available for comparison. INDICATIONS : Picc line placement. MEDICAL HISTORY : None. SURGICAL HISTORY : None. ENCOUNTER: Initial ACUITY: 3 days PAIN SCORE: 0/10 LOCATION: Bilateral chest FINDINGS: A single view of the chest demonstrates the lungs to be symmetrically aerated without evidence of mas s, infiltrate or effusion. The cardiomediastinal contours are unremarkable. Osseous structures are intact. There is a right arm PICC with tip in the superior vena cava. CONCLUSION: Right arm PICC with tip in the superior vena cava. Clear lungs. Brian Arrieta MD on May 19, 2017 at 18:20 Board Certified Radiologist. This report was verified electronically.
[2017-05-19] MEDS ORDERED: SODIUM CHLORIDE 0.9% FLUSH 10 ML FLUSH IV FLUSH PRN (20:30)
[2017-05-19] MEDS: PANTOPRAZOLE SOD 40 MG DELAYED RELEASE TAB PO SCH (20:33)
[2017-05-20] VITALS (10 sets, daily range): BP systolic 137–177; BP diastolic 80–111; PULSE 76–90; RESP 19–21; TEMP 97.4–98.8; O2SAT 97–100
[2017-05-20] MEDS: HYDROmorphone HCL PF 1 MG/ML VIAL IV PUSH PRN ×5 (00:56→20:55)
[2017-05-20] MEDS: DIAZEPAM 5 MG TAB PEG PRN ×3 (02:41→20:53)
[2017-05-20] MEDS: oxyCODONE/ACETAMINOPHEN 10 MG/325 MG TAB PO PRN ×3 (02:42→12:10)
[2017-05-20] MEDS: LEVOTHYROXINE SODIUM 100 MCG VIAL IV PUSH SCH (05:19)
[2017-05-20] MEDS: methylPREDNISolone SOD SUCC 40 MG/1 ML VIAL IV PUSH SCH ×4 (05:20→23:55)
[2017-05-20] MEDS: HEPARIN SODIUM - SQ 10,000 UNITS/ML VIAL SQ SCH ×3 (05:20→21:02)
[2017-05-20] MEDS: SUCRALFATE 1 GM/10 ML CUP PEG SCH ×4 (05:23→20:53)
[2017-05-20] MEDS: MAGNESIUM OXIDE 400 MG TAB PEG SCH ×3 (08:07→18:09)
[2017-05-20] MEDS: DOCUSATE SODIUM 100 MG CAP PO SCH ×2 (08:07→20:53)
[2017-05-20] MEDS: POTASSIUM CHLOR 20 MEQ PREMIX 100 ML IV SCH (08:08)
[2017-05-20] MEDS: CIPROFLOXACIN 400 MG PREMIX 200 ML IV SCH ×2 (08:08→20:54)
[2017-05-20] MEDS: POTASSIUM PHOSPHATE MONOBASIC 500 MG TAB PO SCH ×4 (08:08→20:53)
[2017-05-20] MEDS: diphenhydrAMINE HCL 50 MG/ML VIAL IV PUSH PRN (08:09)
[2017-05-20] MEDS: SODIUM CHLORIDE 0.9% FLUSH 10 ML FLUSH IV FLUSH SCH ×3 (08:10→20:54)
[2017-05-20 08:38] LABS: MEAN CELL VOLUME 88.8 FL (80.0-100.0); MEAN CORPUSCULAR HEMOGLOBIN 29.5 PG (27.0-34.0); MEAN CORPUSCULAR HGB CONC 33.2 % (32.0-36.0); PLATELET COUNT 270 TH/MM3 (150-450); RED BLOOD COUNT 3.15 MIL/MM3 (4.00-5.30); RED CELL DISTRIBUTION WIDTH 16.5 % (11.6-17.2); REVIEW FLAG FINAL; WHITE BLOOD COUNT 21.8 TH/MM3 (4.0-11.0)
[2017-05-20 09:02] LABS: BICARBONATE 18.3 MEQ/L (21.0-32.0); POTASSIUM 3.4 MEQ/L (3.5-5.1)
[2017-05-20] MEDS: NS + KCL 40 MEQ INJ 1,000 ML IV SCH ×2 (12:14→20:54)
[2017-05-20] MEDS: ONDANSETRON HCL 4 MG/2 ML VIAL IVP PRN (12:20)
--- NOTE | 2017-05-20 17:05 | HHI.PR ---
Subjective Remarks With inability to provide IV potassium patient's potassium is increased from 2.6 at 3.4 today which is more significant in the past 4 days. GI absorption issues are suspected. No other complaints today. Objective Vital Signs Date Time Temp Pulse Resp B/P Pulse Ox O2 Delivery O2 Flow Rate FiO2 05/20/17 16:42 98.1 80 19 137/83 100 05/20/17 16:00 79 05/20/17 12:13 97.7 90 19 177/107 97 05/20/17 08:13 97.4 79 19 141/80 100 05/20/17 06:31 154/92 05/20/17 06:30 154/92 05/20/17 04:46 98.8 89 21 173/111 100 05/20/17 01:36 98.5 82 20 141/97 99 05/19/17 19:00 98.1 92 18 140/101 99 I/O 05/19/17 05/19/17 05/19/17 05/20/17 05/20/17 05/20/17 06:59 14:59 22:59 06:59 14:59 22:59 Intake Total 980 ml 700 ml Balance 980 ml 700 ml Intake Oral 200 ml IV Total 780 ml 500 ml Tube Irrigant 200 ml # Voids 3 3 12 2 Result Diagram: 05/20/1781905/20/17819 Objective Remarks GENERAL: NAD, A&Ox3 HEAD: Normocephalic. NECK: Supple, trachea midline. No lymphadenopathy. EYES: No scleral icterus. No injection or drainage. CARDIOVASCULAR: Regular rate and rhythm without murmurs, gallops, or rubs. RESPIRATORY: Breath sounds equal bilaterally. No accessory muscle use. GASTROINTESTINAL: Abdomen soft, non-tender, nondistended. MUSCULOSKELETAL: No cyanosis, or edema. SKIN: Warm and dry. Malar Rash. Tooth Loss. Gingivitis. Hair Loss. NEURO: No focal neurological deficitis. A/P Problem List: (1) Exacerbation of systemic lupus erythematosus ICD Code: M32.9 (2) SHABANA (acute kidney injury) ICD Code: N17.9 (3) Hypokalemia ICD Code: E87.6 Assessment and Plan Assessment and Plan 41 old female with lupus and related chronic hypokalemia admitted with a potassium level I.9 and palpitations. Rapid improvement overnight regarding potassium, after change to IV replacement. PICC line has benefited the patient in this regard. Temporary trial of by mouth intake will be performed at this time to see if she can maintain her potassium level with by mouth supplementation (I do not believe she can). We'll resume IV potassium in a.m. if there is a decline in her potassium level. Plan for port placement for outpatient IV potassium option. Additionally I'll change her by mouth pain treatments to liquid rather than pills due to observed absorption issues ( fragments of pill in J tube).. Severe hypokalemia Poorly correct with GI absorption Potassium levels are improving slowly secondary to inability to replace potassium IV secondary to burning. Attempting IV replacement, this treatment is limited by burning sensations at IV site Lupus related pathology of the GI tract is suspected to inhibit her absorption and also to waste potassium Kwlyoy-j-Mtjg placement pending Follow on telemetry Lupus exacerbation Systemic steroids started Follow for improvement She has a severe case of lupus and would benefit from immune modulation therapies long-term Acute on chronic renal failure Improved with hydration Not normalized, chronic kidney disease related to lupus is likely present IV hydration Monitor renal function UTI Continue Rocephin Follow urine culture DVT prophylaxis Heparin Discharge planning Potassium was corrected and lupus exacerbation most improve prior to discharge Troy Hair MD May 20, 2017 17:05
[2017-05-20] MEDS: oxyCODONE HCL ORAL CONC 20 MG/ML SYRINGE PO PRN ×2 (18:55→23:56)
[2017-05-20] MEDS: POTASSIUM CHLORIDE 10 MEQ CONTROLLED RELEASE TAB PO SCH (20:53)
[2017-05-20] MEDS: PANTOPRAZOLE SOD 40 MG DELAYED RELEASE TAB PO SCH (20:53)
[2017-05-21] VITALS (7 sets, daily range): BP systolic 127–152; BP diastolic 77–97; PULSE 67–88; RESP 18–20; TEMP 97.6–99.2; O2SAT 98–100
[2017-05-21] MEDS: HYDROmorphone HCL PF 1 MG/ML VIAL IV PUSH PRN ×4 (03:05→20:54)
[2017-05-21] MEDS: DIAZEPAM 5 MG TAB PEG PRN ×3 (05:27→22:00)
[2017-05-21] MEDS: HEPARIN SODIUM - SQ 10,000 UNITS/ML VIAL SQ SCH ×3 (05:27→21:00)
[2017-05-21] MEDS: methylPREDNISolone SOD SUCC 40 MG/1 ML VIAL IV PUSH SCH ×3 (05:27→18:13)
[2017-05-21] MEDS: oxyCODONE HCL ORAL CONC 20 MG/ML SYRINGE PO PRN ×4 (05:28→22:00)
[2017-05-21] MEDS: LEVOTHYROXINE SODIUM 100 MCG VIAL IV PUSH SCH (05:28)
[2017-05-21] MEDS: SUCRALFATE 1 GM/10 ML CUP PEG SCH ×4 (06:39→20:51)
[2017-05-21] MEDS: NS + KCL 40 MEQ INJ 1,000 ML IV SCH (06:40)
[2017-05-21 07:06] LABS: AUTOMATED NEUTROPHIL # 16.5 TH/MM3 (1.8-7.7); BASOPHIL % 0.1 % (0.0-2.0); HEMATOCRIT 28.8 % (35.0-46.0); LYMPH % 4.3 % (9.0-44.0); LYMPHOCYTE # 0.8 TH/MM3 (1.0-4.8); MEAN CELL VOLUME 88.7 FL (80.0-100.0); MEAN CORPUSCULAR HEMOGLOBIN 29.1 PG (27.0-34.0); MEAN CORPUSCULAR HGB CONC 32.8 % (32.0-36.0); MONO % 3.4 % (0.0-8.0); NEUT % 92.2 % (16.0-70.0); PLATELET COUNT 266 TH/MM3 (150-450); RED BLOOD COUNT 3.25 MIL/MM3 (4.00-5.30); RED CELL DISTRIBUTION WIDTH 16.9 % (11.6-17.2); WHITE BLOOD COUNT 17.9 TH/MM3 (4.0-11.0)
[2017-05-21 07:09] LABS: HEMO FLAGS AUTO DIFF
[2017-05-21 07:32] LABS: ALT (GPT) 16 U/L (10-53); ANION GAP 9 MEQ/L (5-15); AST (GOT) 6 U/L (15-37); BICARBONATE 18.6 MEQ/L (21.0-32.0); BLOOD UREA NITROGEN 18 MG/DL (7-18); CHLORIDE 114 MEQ/L (98-107); GLOMERULAR FILTRATION RATE 67 ML/MIN (>89); POTASSIUM 3.3 MEQ/L (3.5-5.1); SODIUM (NA) 142 MEQ/L (136-145)
[2017-05-21 07:35] LABS: ALKALINE PHOSPHATASE 40 U/L (45-117); TOTAL BILIRUBIN ADULT 0.2 MG/DL (0.2-1.0)
[2017-05-21] MEDS: POTASSIUM PHOSPHATE MONOBASIC 500 MG TAB PO SCH ×4 (07:58→20:51)
[2017-05-21] MEDS: MAGNESIUM OXIDE 400 MG TAB PEG SCH ×3 (07:58→18:13)
[2017-05-21] MEDS: CIPROFLOXACIN 400 MG PREMIX 200 ML IV SCH ×2 (07:58→20:51)
[2017-05-21] MEDS: SODIUM CHLORIDE 0.9% FLUSH 10 ML FLUSH IV FLUSH SCH ×3 (07:59→20:51)
[2017-05-21] MEDS: POTASSIUM CHLORIDE 10 MEQ CONTROLLED RELEASE TAB PO SCH (07:59)
[2017-05-21] MEDS: DOCUSATE SODIUM 100 MG CAP PO SCH ×2 (07:59→20:51)
[2017-05-21 08:30] LABS: OVALOCYTES 1+ (NORMAL); PLATELET ESTIMATE SMEAR NORMAL (NORMAL); PLATELET MORPHOLOGY NORMAL (NORMAL); SCAN/DIFF AUTO DIFF CONFIRMED
[2017-05-21] MEDS: ONDANSETRON HCL 4 MG/2 ML VIAL IVP PRN (10:12)
--- NOTE | 2017-05-21 11:03 | HHI.PR ---
Subjective Remarks Slight downward trend and potassium levels was changed to by mouth. Patient is still receiving IV hydration with 40 mEQ potassium in it. Objective Vital Signs Date Time Temp Pulse Resp B/P Pulse Ox O2 Delivery O2 Flow Rate FiO2 05/21/17 08:11 98.1 67 18 130/83 98 05/21/17 04:00 98.5 76 20 127/80 99 05/21/17 00:00 97.6 79 20 152/88 100 05/20/17 23:30 76 05/20/17 20:00 97.7 85 21 149/95 100 05/20/17 16:42 98.1 80 19 137/83 100 05/20/17 16:00 79 05/20/17 12:13 97.7 90 19 177/107 97 I/O 05/20/17 05/20/17 05/20/17 05/21/17 05/21/17 05/21/17 07:00 15:00 23:00 07:00 15:00 23:00 Intake Total 980 ml 700 ml 1200 ml Balance 980 ml 700 ml 1200 ml Intake Oral 200 ml IV Total 780 ml 500 ml 1200 ml Tube Irrigant 200 ml # Voids 12 4 2 # Bowel Movements 0 0 Result Diagram: 05/21/1743 05/21/17642 Objective Remarks GENERAL: NAD, A&Ox3 HEAD: Normocephalic. NECK: Supple, trachea midline. No lymphadenopathy. EYES: No scleral icterus. No injection or drainage. CARDIOVASCULAR: Regular rate and rhythm without murmurs, gallops, or rubs. RESPIRATORY: Breath sounds equal bilaterally. No accessory muscle use. GASTROINTESTINAL: Abdomen soft, non-tender, nondistended. MUSCULOSKELETAL: No cyanosis, or edema. SKIN: Warm and dry. Malar Rash. Tooth Loss. Gingivitis. Hair Loss. NEURO: No focal neurological deficitis. A/P Problem List: (1) Exacerbation of systemic lupus erythematosus ICD Code: M32.9 (2) SHABANA (acute kidney injury) ICD Code: N17.9 (3) Hypokalemia ICD Code: E87.6 Assessment and Plan Assessment and Plan 41 old female with lupus and related chronic hypokalemia admitted with a potassium level I.9 and palpitations. Hold IV hydration with potassium. Follow potassium level this afternoon. Monitor potassium levels with BMP in the morning. Pain medications adjusted again as well as Valium. Severe hypokalemia Poorly correct with GI absorption Potassium levels are improving slowly secondary to inability to replace potassium IV secondary to burning. Attempting IV replacement, this treatment is limited by burning sensations at IV site Lupus related pathology of the GI tract is suspected to inhibit her absorption and also to waste potassium Rxpwcg-y-Nwwg placement pending Follow on telemetry Lupus exacerbation Systemic steroids started Follow for improvement She has a severe case of lupus and would benefit from immune modulation therapies long-term Acute on chronic renal failure Improved with hydration Not normalized, chronic kidney disease related to lupus is likely present IV hydration Monitor renal function UTI Continue Rocephin Follow urine culture DVT prophylaxis Heparin Discharge planning Potassium was corrected and lupus exacerbation most improve prior to discharge Troy Hair MD May 21, 2017 11:03
[2017-05-21] MEDS: LACTOBACILLUS ACIDOPHILUS TAB PO SCH ×2 (12:07→18:14)
[2017-05-21] MEDS: PANTOPRAZOLE SOD 40 MG DELAYED RELEASE TAB PO SCH (20:51)
[2017-05-21] MEDS: POTASSIUM CHLOR 20 MEQ PREMIX 100 ML IV SCH (22:00)
[2017-05-22 00:30] VITALS: BP 122/79; PULSE 88; RESP 18; TEMP 99; O2SAT 100
[2017-05-22] MEDS: methylPREDNISolone SOD SUCC 40 MG/1 ML VIAL IV PUSH SCH ×4 (00:41→16:58)
[2017-05-22] MEDS: HYDROmorphone HCL PF 1 MG/ML VIAL IV PUSH PRN ×4 (00:41→16:58)
[2017-05-22] MEDS: oxyCODONE HCL ORAL CONC 20 MG/ML SYRINGE PO PRN ×5 (03:15→22:26)
[2017-05-22] MEDS: HEPARIN SODIUM - SQ 10,000 UNITS/ML VIAL SQ SCH ×3 (05:55→22:23)
[2017-05-22] MEDS: DIAZEPAM 5 MG TAB PEG PRN ×3 (05:55→22:25)
[2017-05-22] MEDS: LEVOTHYROXINE SODIUM 100 MCG VIAL IV PUSH SCH (05:55)
[2017-05-22] MEDS: SUCRALFATE 1 GM/10 ML CUP PEG SCH ×4 (06:03→22:22)
[2017-05-22 07:47] LABS: HEMATOCRIT 21.9 % (35.0-46.0); MEAN CELL VOLUME 88.9 FL (80.0-100.0); MEAN CORPUSCULAR HEMOGLOBIN 29.2 PG (27.0-34.0); MEAN CORPUSCULAR HGB CONC 32.8 % (32.0-36.0); PLATELET COUNT 213 TH/MM3 (150-450); RED BLOOD COUNT 2.47 MIL/MM3 (4.00-5.30); RED CELL DISTRIBUTION WIDTH 17.1 % (11.6-17.2); REVIEW FLAG FINAL; WHITE BLOOD COUNT 16.5 TH/MM3 (4.0-11.0)
[2017-05-22 08:03] VITALS: BP 138/88; PULSE 85; RESP 19; TEMP 98.1; O2SAT 100
[2017-05-22 08:05] VITALS: PULSE 87
[2017-05-22 08:20] LABS: BICARBONATE 19.2 MEQ/L (21.0-32.0)
[2017-05-22 08:24] LABS: POTASSIUM 2.8 MEQ/L (3.5-5.1)
[2017-05-22] MEDS: CIPROFLOXACIN 400 MG PREMIX 200 ML IV SCH ×2 (08:32→22:24)
[2017-05-22] MEDS: POTASSIUM PHOSPHATE MONOBASIC 500 MG TAB PO SCH ×4 (08:35→22:23)
[2017-05-22] MEDS: DOCUSATE SODIUM 100 MG CAP PO SCH ×2 (08:36→22:23)
[2017-05-22] MEDS: LACTOBACILLUS ACIDOPHILUS TAB PO SCH ×3 (08:36→16:55)
[2017-05-22] MEDS: MAGNESIUM OXIDE 400 MG TAB PEG SCH ×3 (08:37→16:55)
[2017-05-22] MEDS: SODIUM CHLORIDE 0.9% FLUSH 10 ML FLUSH IV FLUSH SCH ×3 (08:37→22:23)
[2017-05-22] MEDS ORDERED: VANCOMYCIN INJ 1,000 MG in SODIUM CHLOR 0.9% 250 ML INJ 250 ML IV SCH (09:30)
[2017-05-22] MEDS ORDERED: LIDOCAINE 1%/EPINEPHrine 1:100,000 SOLN 20 ML VIAL ONE (10:28)
--- NOTE | 2017-05-22 11:14 | PD.RAD ---
Post Procedure Progress Note Pre Procedure Diagnosis: (1) Hypokalemia Post Procedure Diagnosis: (1) Hypokalemia Procedure Date: May 22, 2017 Supervising Radiologist: Vic Williamson JR Proceduralist/Assist: Washington Hardin, RT(R), Kd Tsai RT(R) Anesthesia: General Plan of Activity Patient to Unit: PACU Patient Condition: Good See PACS Report for procedural detail/treatment Central Venous Access Device Procedure 1 Right Internal Jugular Infusaport Placement single lumen Romanian: 8 Findings: Port in good position and functions well. OK to use Plan F/U with IR or a physician in 10-14 days for a site check Jr. Clay,Vic Francis MD May 22, 2017 11:14
[2017-05-22] MEDS ORDERED: IOHEXOL 350 MG/ML 50 ML BTL (for RAD DIAG) IV ONE (11:18)
[2017-05-22] MEDS ORDERED: DO NOT ADM ANY ANTICOAGULANT DRUGS PRN (11:34)
--- NOTE | 2017-05-22 11:40 | RADRPT ---
EXAM DATE/TIME: 05/22/2017 10:12 [facility] COMPARISON: No previous studies available for comparison. INDICATIONS : Patient presents with hypokalemia in need of port placement for intravenous medication administration . MEDICAL HISTORY : SVT Appendix cancer 3 - 4 years ago [facility] Endometriosis Seizures gastroparesis esophagitis GI ulcers Chronic hypokalemia SURGICAL HISTORY : Laparoscopy x 4 Cystoscopy - interstitial cystitis - resolved EGD/Colonoscopy ENCOUNTER: Subsequent ACUITY: 2 days PAIN SCORE: 9/10 LOCATION: Lower abdomen and back pain. FLUORO TIME: 0.5 minutes IMAGE SERIES: 1 CONTRAST: 5 cc Omnipaque (iohexol) 350 ACCESS: Right internal jugular vein Prophylactic antibiotics were administered with appropriate pre-procedure timing. Vancomycin within 2 hours of procedure, Ancef (or alternative) within 1 hour of procedure. DEVICE: 1. [address] Swedish single lumen Smart port CT w/ vortex TECH NOTE: Anesthesia assisted for the procedure with sedation.VANESA RIVERA MR#:[id number] Ex am Dt/Desc: May 22, [id number] PLCMT, POWERPORT, W US, RIGHT PROCEDURE : 1. Continuous pulse oximetry and EKG monitoring. 2. Intravenous conscious sedation. 3. Ultrasound guidance for venous access. 4. Fluoroscopic guided implantable central venous port placement. The patient was placed supine. The neck was prepped in sterile fashion. Full sterile technique was u sed, including cap, mask, sterile gloves and gown, and a large sterile sheet. Hand hygiene and 2% ch lorhexidine Betadine was utilized per protocol for cutaneous antisepsis with appropriate dry time for site. The skin and subcutaneous tissues were infiltrated with local anesthetic solution. Under direct ultrasound guidance, central venous access was accomplished in the targeted vessel. The ultrasound images depicting access guidance were stored and saved to PACS for permanent record. A s ubcutaneous pocket was created using blunt dissection. The port was introduced to the pocket. The c atheter tubing was fed through a subcutaneous tunnel to the venotomy site. The catheter tubing was c ut to a suitable length and then was introduced through a valved Peel-Away sheath and positioned with catheter tubing tip at the cavo-atrial junction level. There is a fairly brisk return of blood upon aspiration and therefore contrast was injected to confirm venous positioning of the tube. The pocket incision was closed with subcuticular Vicryl suture. Steri-Strips were applied. The port was flushe d and locked with heparin solution per protocol. Sterile dressing was applied to the site. The gurjit ent tolerated the procedure well. Conscious sedation was performed with the prescribed dosages and duration as above in the presence of an independent trained radiology nurse to assist in the monitoring of the patient. EKG and oximetry remained stable throughout the procedure. The patient tolerated the procedure well and there were no complications. The patient was sent to post anesthesia recovery in stable condition. CONCLUSION: Uncomplicated ultrasound and fluoroscopic guided implanted central venous port catheter placement as described in detail above. An 8 Swedish Power port was placed. Vic Williamson Jr., MD on May 22, 2017 at 11:37 Board Certified Radiologist. This report was verified electronically.
[2017-05-22] MEDS ORDERED: MORPHINE SULFATE 4 MG/ML INJ ONE (11:58)
[2017-05-22] MEDS ORDERED: *morphine SULFATE 8 MG/ML PERIprocedure ONLY ONE ×2 (11:59→12:08)
[2017-05-22] MEDS ORDERED: SODIUM CHLORIDE 0.9% FLUSH 10 ML FLUSH IVF PRN (12:00)
[2017-05-22] MEDS ORDERED: *HYDROmorphone PF 1 MG VIAL PERIprocedural Use ONLY ONE (12:21)
[2017-05-22] MEDS ORDERED: PROPOFOL 200 MG/20 ML AMP IV ONE (12:35)
[2017-05-22] MEDS: POTASSIUM CHLOR 20 MEQ PREMIX 100 ML IV SCH ×2 (12:56→22:24)
[2017-05-22 13:12] VITALS: BP 130/90; PULSE 78; RESP 18; TEMP 97.8; O2SAT 100
--- NOTE | 2017-05-22 16:36 | HHI.PR ---
Subjective Remarks Downward trend and potassium again. Patient had port placed today. Continuation of IV potassium replacement rather than PO/GI supplementation should cause benefit and hopefully normalization of her potassium levels in about next 2 days. Objective Vital Signs Date Time Temp Pulse Resp B/P Pulse Ox O2 Delivery O2 Flow Rate FiO2 05/22/17 13:12 97.8 78 18 130/90 100 05/22/17 12:30 98.4 73 16 125/75 99 Room Air 05/22/17 12:15 73 16 125/75 99 Room Air 05/22/17 12:00 74 16 136/90 99 Room Air 05/22/17 11:45 74 16 139/89 98 Room Air 05/22/17 11:34 98.4 78 16 137/85 100 Nasal Cannula 2 05/22/17 08:05 87 05/22/17 08:03 98.1 85 19 138/88 100 05/22/17 00:30 99.0 88 18 122/79 100 05/21/17 21:45 99.2 85 19 145/97 100 05/21/17 19:30 74 I/O 05/21/17 05/21/17 05/21/17 05/22/17 05/22/17 05/22/17 07:00 15:00 23:00 07:00 15:00 23:00 Intake Total 1320 ml 750 ml 1650 ml 430 ml Output Total 25 ml Balance 1320 ml 750 ml 1650 ml 405 ml Intake Oral 120 ml 750 ml 950 ml IV Total 1200 ml 700 ml 30 ml Other 400 ml Estimated Blood Loss 25 ml # Voids 2 4 3 4 # Bowel Movements 0 0 3 Result Diagram: 05/22/17 0555 05/22/17 1203 Objective Remarks GENERAL: NAD, A&Ox3 HEAD: Normocephalic. NECK: Supple, trachea midline. No lymphadenopathy. EYES: No scleral icterus. No injection or drainage. CARDIOVASCULAR: Regular rate and rhythm without murmurs, gallops, or rubs. RESPIRATORY: Breath sounds equal bilaterally. No accessory muscle use. GASTROINTESTINAL: Abdomen soft, non-tender, nondistended. MUSCULOSKELETAL: No cyanosis, or edema. SKIN: Warm and dry. Malar Rash. Tooth Loss. Gingivitis. Hair Loss. NEURO: No focal neurological deficitis. A/P Problem List: (1) Exacerbation of systemic lupus erythematosus ICD Code: M32.9 (2) SHABANA (acute kidney injury) ICD Code: N17.9 (3) Hypokalemia ICD Code: E87.6 Assessment and Plan Assessment and Plan 41 old female with lupus and related chronic hypokalemia admitted with a potassium level 1.9 and palpitations. Status post port placement today. Patient failed trial of by mouth therapy. We'll correct potassium with IV replacement alone from here forward. Severe hypokalemia Poorly correct with GI absorption Potassium levels are improving slowly secondary to inability to replace potassium IV secondary to burning. Attempting IV replacement, this treatment is limited by burning sensations at IV site Lupus related pathology of the GI tract is suspected to inhibit her absorption and also to waste potassium Vxjoqp-u-Mcle placement pending Follow on telemetry Lupus exacerbation Systemic steroids started Follow for improvement She has a severe case of lupus and would benefit from immune modulation therapies long-term Acute on chronic renal failure Improved with hydration Not normalized, chronic kidney disease related to lupus is likely present IV hydration Monitor renal function UTI Continue Rocephin Follow urine culture DVT prophylaxis Heparin Discharge planning Potassium was corrected and lupus exacerbation most improve prior to discharge Troy Hair MD May 22, 2017 16:36
[2017-05-22 17:13] VITALS: BP 117/64; PULSE 97; RESP 20; TEMP 99.7; O2SAT 98
[2017-05-22 17:46] LABS: HEMATOCRIT 28.2 % (35.0-46.0); REVIEW FLAG FINAL
[2017-05-22 20:28] VITALS: BP 116/72; PULSE 92; RESP 20; TEMP 99.2; O2SAT 95
[2017-05-22] MEDS: PANTOPRAZOLE SOD 40 MG DELAYED RELEASE TAB PO SCH (22:23)
[2017-05-23] VITALS (8 sets, daily range): BP systolic 130–168; BP diastolic 79–99; PULSE 87–102; RESP 16–20; TEMP 97.2–99.6; O2SAT 93–100
[2017-05-23] MEDS: methylPREDNISolone SOD SUCC 40 MG/1 ML VIAL IV PUSH SCH ×5 (00:46→23:42)
[2017-05-23] MEDS: HYDROmorphone HCL PF 1 MG/ML VIAL IV PUSH PRN ×6 (00:46→22:26)
[2017-05-23] MEDS: oxyCODONE HCL ORAL CONC 20 MG/ML SYRINGE PO PRN ×6 (02:37→23:43)
[2017-05-23] MEDS: LEVOTHYROXINE SODIUM 100 MCG VIAL IV PUSH SCH (04:57)
[2017-05-23] MEDS: diphenhydrAMINE HCL 50 MG/ML VIAL IV PUSH PRN (04:58)
[2017-05-23] MEDS: HEPARIN SODIUM - SQ 10,000 UNITS/ML VIAL SQ SCH ×3 (04:58→22:23)
[2017-05-23 05:42] LABS: HEMATOCRIT 27.4 % (35.0-46.0); MEAN CELL VOLUME 89.2 FL (80.0-100.0); MEAN CORPUSCULAR HEMOGLOBIN 28.5 PG (27.0-34.0); MEAN CORPUSCULAR HGB CONC 31.9 % (32.0-36.0); PLATELET COUNT 275 TH/MM3 (150-450); RED BLOOD COUNT 3.07 MIL/MM3 (4.00-5.30); RED CELL DISTRIBUTION WIDTH 16.8 % (11.6-17.2); REVIEW FLAG FINAL; WHITE BLOOD COUNT 26.4 TH/MM3 (4.0-11.0)
[2017-05-23 06:15] LABS: BICARBONATE 17.8 MEQ/L (21.0-32.0); POTASSIUM 3.2 MEQ/L (3.5-5.1)
[2017-05-23] MEDS: SUCRALFATE 1 GM/10 ML CUP PEG SCH (06:49)
[2017-05-23] MEDS: DIAZEPAM 5 MG TAB PEG PRN ×3 (06:49→22:24)
[2017-05-23] MEDS: ONDANSETRON HCL 4 MG/2 ML VIAL IVP PRN ×3 (06:50→22:13)
[2017-05-23] MEDS: POTASSIUM PHOSPHATE MONOBASIC 500 MG TAB PO SCH ×4 (08:39→22:23)
[2017-05-23] MEDS: LACTOBACILLUS ACIDOPHILUS TAB PO SCH ×3 (08:39→19:17)
[2017-05-23] MEDS: MAGNESIUM OXIDE 400 MG TAB PEG SCH ×3 (08:39→19:18)
[2017-05-23] MEDS: DOCUSATE SODIUM 100 MG CAP PO SCH ×2 (08:39→22:23)
[2017-05-23] MEDS: CIPROFLOXACIN 400 MG PREMIX 200 ML IV SCH ×2 (08:40→22:12)
[2017-05-23] MEDS: SODIUM CHLORIDE 0.9% FLUSH 10 ML FLUSH IV FLUSH SCH ×3 (08:41→21:00)
[2017-05-23] MEDS: POTASSIUM CHLOR 20 MEQ PREMIX 100 ML IV SCH ×2 (09:54→22:12)
--- NOTE | 2017-05-23 11:05 | HHI.PR ---
Subjective Remarks With IV replacement she has had gradual improvement in her potassium level which is expected to continue IV replacements continue. Follow potassium levels for now. Global (cellular) deficit is present IV potassium will be continued even after patient crosses normal levels. Hemoglobin levels have remained stable. Objective Vital Signs Date Time Temp Pulse Resp B/P Pulse Ox O2 Delivery O2 Flow Rate FiO2 05/23/17 08:12 99.6 96 16 144/96 100 05/23/17 05:49 98.8 97 20 168/95 93 05/23/17 00:31 97.2 100 20 135/99 97 05/22/17 20:28 99.2 92 20 116/72 95 05/22/17 17:13 99.7 97 20 117/64 98 05/22/17 13:12 97.8 78 18 130/90 100 05/22/17 12:30 98.4 73 16 125/75 99 Room Air 05/22/17 12:15 73 16 125/75 99 Room Air 05/22/17 12:00 74 16 136/90 99 Room Air 05/22/17 11:45 74 16 139/89 98 Room Air 05/22/17 11:34 98.4 78 16 137/85 100 Nasal Cannula 2 I/O 05/22/17 05/22/17 05/22/17 05/23/17 05/23/17 05/23/17 07:00 15:00 23:00 07:00 15:00 23:00 Intake Total 1650 ml 430 ml 360 ml 300 ml Output Total 25 ml Balance 1650 ml 405 ml 360 ml 300 ml Intake Oral 950 ml 360 ml IV Total 700 ml 30 ml 300 ml Other 400 ml Estimated Blood Loss 25 ml # Voids 4 1 8 # Bowel Movements 3 0 Result Diagram: 05/23/1715 05/23/1715 Objective Remarks GENERAL: NAD, A&Ox3 HEAD: Normocephalic. NECK: Supple, trachea midline. No lymphadenopathy. EYES: No scleral icterus. No injection or drainage. CARDIOVASCULAR: Regular rate and rhythm without murmurs, gallops, or rubs. RESPIRATORY: Breath sounds equal bilaterally. No accessory muscle use. GASTROINTESTINAL: Abdomen soft, non-tender, nondistended. MUSCULOSKELETAL: No cyanosis, or edema. SKIN: Warm and dry. Malar Rash. Tooth Loss. Gingivitis. Hair Loss. NEURO: No focal neurological deficitis. A/P Problem List: (1) Exacerbation of systemic lupus erythematosus ICD Code: M32.9 (2) SHABANA (acute kidney injury) ICD Code: N17.9 (3) Hypokalemia ICD Code: E87.6 Assessment and Plan Assessment and Plan 41 old female with lupus and related chronic hypokalemia admitted with a potassium level 1.9 and palpitations. Status post port placement. We'll change to poor usage tomorrow morning. Continue IV supplementation of potassium given current evaluation of poor GI absorption. Follow potassium levels. Follow hemoglobin levels. Severe hypokalemia Poorly correct with GI absorption Potassium levels are improving slowly secondary to inability to replace potassium IV secondary to burning. Attempting IV replacement, this treatment is limited by burning sensations at IV site Lupus related pathology of the GI tract is suspected to inhibit her absorption and also to waste potassium Nzpoae-g-Jbic placement pending Follow on telemetry Lupus exacerbation Systemic steroids started Follow for improvement She has a severe case of lupus and would benefit from immune modulation therapies long-term Acute on chronic renal failure Improved with hydration Not normalized, chronic kidney disease related to lupus is likely present IV hydration Monitor renal function UTI Continue Rocephin Follow urine culture DVT prophylaxis Heparin Discharge planning Potassium was corrected and lupus exacerbation most improve prior to discharge Troy Hair MD May 23, 2017 11:05 am
[2017-05-23] MEDS: PANTOPRAZOLE SOD 40 MG DELAYED RELEASE TAB PO SCH (22:23)
[2017-05-24] VITALS (7 sets, daily range): BP systolic 118–134; BP diastolic 64–84; PULSE 73–95; RESP 17–20; TEMP 98.3–99.2; O2SAT 97–100
[2017-05-24] MEDS: HYDROmorphone HCL PF 1 MG/ML VIAL IV PUSH PRN ×5 (03:09→20:08)
[2017-05-24] MEDS: LEVOTHYROXINE SODIUM 100 MCG VIAL IV PUSH SCH (05:27)
[2017-05-24] MEDS: methylPREDNISolone SOD SUCC 40 MG/1 ML VIAL IV PUSH SCH ×3 (05:27→17:36)
[2017-05-24] MEDS: oxyCODONE HCL ORAL CONC 20 MG/ML SYRINGE PO PRN ×5 (05:28→22:14)
[2017-05-24] MEDS: HEPARIN SODIUM - SQ 10,000 UNITS/ML VIAL SQ SCH ×3 (05:28→22:16)
[2017-05-24] MEDS: DIAZEPAM 5 MG TAB PEG PRN ×2 (06:56→16:00)
[2017-05-24 07:20] LABS: HEMATOCRIT 24.3 % (35.0-46.0); MEAN CORPUSCULAR HEMOGLOBIN 29.2 PG (27.0-34.0); MEAN CORPUSCULAR HGB CONC 32.8 % (32.0-36.0); PLATELET COUNT 239 TH/MM3 (150-450); RED BLOOD COUNT 2.73 MIL/MM3 (4.00-5.30); RED CELL DISTRIBUTION WIDTH 17.4 % (11.6-17.2); WHITE BLOOD COUNT 30.4 TH/MM3 (4.0-11.0)
[2017-05-24 07:28] LABS: BICARBONATE 18.4 MEQ/L (21.0-32.0); POTASSIUM 3.3 MEQ/L (3.5-5.1)
[2017-05-24 08:05] LABS: REVIEW FLAG FINAL
[2017-05-24] MEDS: ONDANSETRON HCL 4 MG/2 ML VIAL IVP PRN ×2 (09:35→20:09)
[2017-05-24] MEDS: LACTOBACILLUS ACIDOPHILUS TAB PO SCH ×3 (09:37→17:36)
[2017-05-24] MEDS: MAGNESIUM OXIDE 400 MG TAB PEG SCH ×3 (09:37→17:36)
[2017-05-24] MEDS: POTASSIUM PHOSPHATE MONOBASIC 500 MG TAB PO SCH ×4 (09:37→22:15)
[2017-05-24] MEDS: CIPROFLOXACIN 400 MG PREMIX 200 ML IV SCH ×2 (09:37→22:16)
[2017-05-24] MEDS: DOCUSATE SODIUM 100 MG CAP PO SCH ×2 (09:37→22:15)
[2017-05-24] MEDS: SODIUM CHLORIDE 0.9% FLUSH 10 ML FLUSH IV FLUSH SCH ×3 (09:38→22:15)
[2017-05-24] MEDS: POTASSIUM CHLOR 20 MEQ PREMIX 100 ML IV SCH ×2 (10:51→17:35)
--- NOTE | 2017-05-24 13:59 | HHI.PR ---
Subjective Remarks Potassium continues to improve slowly with IV replacement. Monitor potassium levels. No benefit from J-tube administration of potassium versus by mouth intake. J-tube does not seem to be of any benefit and patient like it removed. Patient complaints of burning of her mouth and has oral thrush on exam. Objective Vital Signs Date Time Temp Pulse Resp B/P Pulse Ox O2 Delivery O2 Flow Rate FiO2 05/24/17 12:09 98.5 95 20 122/70 100 05/24/17 09:28 99.2 85 20 130/80 100 05/24/17 04:34 98.3 82 17 118/64 97 05/24/17 00:27 99.1 88 17 132/80 100 05/23/17 20:19 98.5 87 17 138/79 98 05/23/17 16:27 98.4 92 16 133/87 100 I/O 05/23/17 05/23/17 05/23/17 05/24/17 05/24/17 05/24/17 07:00 15:00 23:00 07:00 15:00 23:00 Intake Total 300 ml 2798 ml 240 ml 240 ml Balance 300 ml 2798 ml 240 ml 240 ml Intake Oral 2400 ml 240 ml 240 ml IV Total 300 ml 398 ml # Voids 8 3 3 # Bowel Movements 1 Result Diagram: 05/24/17 0650 05/24/17 0650 Objective Remarks GENERAL: NAD, A&Ox3 HEAD: Normocephalic. NECK: Supple, trachea midline. No lymphadenopathy. EYES: No scleral icterus. No injection or drainage. CARDIOVASCULAR: Regular rate and rhythm without murmurs, gallops, or rubs. RESPIRATORY: Breath sounds equal bilaterally. No accessory muscle use. GASTROINTESTINAL: Abdomen soft, non-tender, nondistended. MUSCULOSKELETAL: No cyanosis, or edema. SKIN: Warm and dry. Malar Rash. Tooth Loss. Gingivitis. Hair Loss. NEURO: No focal neurological deficitis. MOUTH: Thrush and tongue and palate A/P Problem List: (1) Exacerbation of systemic lupus erythematosus ICD Code: M32.9 (2) SHABANA (acute kidney injury) ICD Code: N17.9 (3) Hypokalemia ICD Code: E87.6 Assessment and Plan Assessment and Plan 41 old female with lupus and related chronic hypokalemia admitted with a potassium level 1.9 and palpitations. Status post port placement. Change from PICC line to port today. We'll remove PICC line tomorrow if port tolerated. Removal of J-tube requested by the patient and GI will be consulted for this. Oral thrush present will be treated with nystatin. Severe hypokalemia Poorly correct with GI absorption Potassium levels are improving slowly secondary to inability to replace potassium IV secondary to burning. Attempting IV replacement, this treatment is limited by burning sensations at IV site Lupus related pathology of the GI tract is suspected to inhibit her absorption and also to waste potassium Lejkkp-u-Qqke placement pending Follow on telemetry Oral thrush Nystatin swish and swallow Follow for improvement Lupus exacerbation Systemic steroids started Follow for improvement She has a severe case of lupus and would benefit from immune modulation therapies long-term Acute on chronic renal failure Improved with hydration Not normalized, chronic kidney disease related to lupus is likely present IV hydration Monitor renal function UTI Continue Rocephin Follow urine culture DVT prophylaxis Heparin Discharge planning Potassium was corrected and lupus exacerbation most improve prior to discharge Troy Hair MD May 24, 2017 13:59
[2017-05-24] MEDS: NYSTATIN 500,000 UNIT TAB PO SCH ×2 (16:00→22:15)
[2017-05-24] MEDS: PANTOPRAZOLE SOD 40 MG DELAYED RELEASE TAB PO SCH (22:15)
[2017-05-25] VITALS (8 sets, daily range): BP systolic 121–160; BP diastolic 71–97; PULSE 72–90; RESP 18–20; TEMP 97.5–98.8; O2SAT 95–100
[2017-05-25] MEDS: oxyCODONE HCL ORAL CONC 20 MG/ML SYRINGE PO PRN ×5 (02:57→20:39)
[2017-05-25] MEDS: POTASSIUM CHLOR 20 MEQ PREMIX 100 ML IV SCH ×3 (02:57→17:52)
[2017-05-25] MEDS: HYDROmorphone HCL PF 1 MG/ML VIAL IV PUSH PRN ×6 (05:33→22:30)
[2017-05-25] MEDS: methylPREDNISolone SOD SUCC 40 MG/1 ML VIAL IV PUSH SCH ×4 (05:34→17:51)
[2017-05-25] MEDS: HEPARIN SODIUM - SQ 10,000 UNITS/ML VIAL SQ SCH ×3 (05:34→22:30)
[2017-05-25] MEDS: LEVOTHYROXINE SODIUM 100 MCG VIAL IV PUSH SCH (05:54)
[2017-05-25] MEDS: NYSTATIN 500,000 UNIT TAB PO SCH (05:55)
[2017-05-25] MEDS: DIAZEPAM 5 MG TAB PEG PRN ×3 (07:40→15:42)
[2017-05-25 08:06] LABS: HEMATOCRIT 27.4 % (35.0-46.0); MEAN CELL VOLUME 90.7 FL (80.0-100.0); MEAN CORPUSCULAR HEMOGLOBIN 28.5 PG (27.0-34.0); MEAN CORPUSCULAR HGB CONC 31.5 % (32.0-36.0); PLATELET COUNT 277 TH/MM3 (150-450); RED BLOOD COUNT 3.02 MIL/MM3 (4.00-5.30); RED CELL DISTRIBUTION WIDTH 18.1 % (11.6-17.2); WHITE BLOOD COUNT 40.2 TH/MM3 (4.0-11.0)
[2017-05-25 08:09] LABS: REVIEW FLAG FINAL
[2017-05-25 08:12] LABS: BICARBONATE 16.4 MEQ/L (21.0-32.0); POTASSIUM 3.9 MEQ/L (3.5-5.1)
[2017-05-25] MEDS: SODIUM CHLORIDE 0.9% FLUSH 10 ML FLUSH IV FLUSH SCH ×3 (08:58→20:42)
[2017-05-25] MEDS: MAGNESIUM OXIDE 400 MG TAB PEG SCH ×3 (08:58→17:52)
[2017-05-25] MEDS: LACTOBACILLUS ACIDOPHILUS TAB PO SCH ×3 (08:58→17:52)
[2017-05-25] MEDS: DOCUSATE SODIUM 100 MG CAP PO SCH ×2 (08:58→20:39)
[2017-05-25] MEDS: POTASSIUM PHOSPHATE MONOBASIC 500 MG TAB PO SCH ×4 (08:58→20:39)
[2017-05-25] MEDS ORDERED: methylPREDNISolone SOD SUCC 125 MG/2 ML VIAL IV PUSH ONE (12:00)
[2017-05-25] MEDS ORDERED: NYSTATIN SUSP 500,000 U/5 ML CUP SWISH-SWAL ONE (12:00)
--- NOTE | 2017-05-25 13:49 | HHI.PR ---
Subjective Remarks PICC line discontinued today. Patient is feeling ill today. She is in bed and not ambulating today. This could represent lupus exacerbation again. Objective Vital Signs Date Time Temp Pulse Resp B/P Pulse Ox O2 Delivery O2 Flow Rate FiO2 05/25/17 11:52 98.6 72 18 128/80 99 05/25/17 08:00 98.5 84 18 160/96 100 05/25/17 07:04 80 05/25/17 04:00 98.4 89 20 135/85 95 05/25/17 00:00 97.5 82 18 121/71 100 05/24/17 20:00 81 05/24/17 17:47 21 05/24/17 16:23 98.7 94 20 134/84 99 I/O 05/24/17 05/24/17 05/24/17 05/25/17 05/25/17 05/25/17 07:00 15:00 23:00 07:00 15:00 23:00 Intake Total 240 ml 380 ml Balance 240 ml 380 ml Intake Oral 240 ml 240 ml IV Total 140 ml # Voids 3 15 4 # Bowel Movements 2 Result Diagram: 05/25/17 0553 05/25/17 0553 Objective Remarks GENERAL: NAD, A&Ox3 HEAD: Normocephalic. NECK: Supple, trachea midline. No lymphadenopathy. EYES: No scleral icterus. No injection or drainage. CARDIOVASCULAR: Regular rate and rhythm without murmurs, gallops, or rubs. RESPIRATORY: Breath sounds equal bilaterally. No accessory muscle use. GASTROINTESTINAL: Abdomen soft, non-tender, nondistended. MUSCULOSKELETAL: No cyanosis, or edema. SKIN: Warm and dry. Malar Rash. Tooth Loss. Gingivitis. Hair Loss. NEURO: No focal neurological deficitis. MOUTH: Thrush and tongue and palate A/P Problem List: (1) Exacerbation of systemic lupus erythematosus ICD Code: M32.9 (2) SHABANA (acute kidney injury) ICD Code: N17.9 (3) Hypokalemia ICD Code: E87.6 Assessment and Plan Assessment and Plan 41 old female with lupus and related chronic hypokalemia admitted with a potassium level 1.9 and palpitations. Status post port placement. Discontinue PICC line. J-tube removed. Additional dose of prednisone provided today. Continue liquid nystatin swish and swallow. Severe hypokalemia Poorly correct with GI absorption Potassium levels are improving slowly secondary to inability to replace potassium IV secondary to burning. Attempting IV replacement, this treatment is limited by burning sensations at IV site Lupus related pathology of the GI tract is suspected to inhibit her absorption and also to waste potassium Jyunow-n-Pimx placement pending Follow on telemetry Oral thrush Nystatin swish and swallow Follow for improvement Lupus exacerbation Systemic steroids started Follow for improvement She has a severe case of lupus and would benefit from immune modulation therapies long-term Acute on chronic renal failure Improved with hydration Not normalized, chronic kidney disease related to lupus is likely present IV hydration Monitor renal function UTI Continue Rocephin Follow urine culture DVT prophylaxis Heparin Discharge planning Potassium was corrected and lupus exacerbation most improve prior to discharge Troy Hair MD May 25, 2017 13:48
[2017-05-25] MEDS: NYSTATIN SUSP 500,000 U/5 ML CUP SWISH-SWAL SCH ×2 (17:52→20:43)
[2017-05-25] MEDS: PANTOPRAZOLE SOD 40 MG DELAYED RELEASE TAB PO SCH (20:39)
[2017-05-26] VITALS (7 sets, daily range): BP systolic 130–164; BP diastolic 71–103; PULSE 74–92; RESP 18–20; TEMP 98.4–98.9; O2SAT 97–100
[2017-05-26] MEDS: DIAZEPAM 5 MG TAB PEG PRN ×3 (00:38→15:56)
[2017-05-26] MEDS: oxyCODONE HCL ORAL CONC 20 MG/ML SYRINGE PO PRN ×5 (01:05→20:42)
[2017-05-26] MEDS: methylPREDNISolone SOD SUCC 40 MG/1 ML VIAL IV PUSH SCH ×4 (01:05→17:53)
[2017-05-26] MEDS: HYDROmorphone HCL PF 1 MG/ML VIAL IV PUSH PRN ×6 (02:50→22:23)
[2017-05-26] MEDS: LEVOTHYROXINE SODIUM 100 MCG VIAL IV PUSH SCH (05:41)
[2017-05-26] MEDS: ONDANSETRON HCL 4 MG/2 ML VIAL IVP PRN (05:41)
[2017-05-26] MEDS: HEPARIN SODIUM - SQ 10,000 UNITS/ML VIAL SQ SCH ×3 (05:41→20:43)
[2017-05-26 05:57] LABS: HEMATOCRIT 27.6 % (35.0-46.0); MEAN CELL VOLUME 89.3 FL (80.0-100.0); MEAN CORPUSCULAR HEMOGLOBIN 28.6 PG (27.0-34.0); PLATELET COUNT 271 TH/MM3 (150-450); RED BLOOD COUNT 3.09 MIL/MM3 (4.00-5.30); RED CELL DISTRIBUTION WIDTH 17.7 % (11.6-17.2); WHITE BLOOD COUNT 30.2 TH/MM3 (4.0-11.0)
[2017-05-26 06:03] LABS: REVIEW FLAG AUTO DIFF
[2017-05-26 06:17] LABS: BICARBONATE 16.4 MEQ/L (21.0-32.0); POTASSIUM 3.7 MEQ/L (3.5-5.1)
[2017-05-26] MEDS: NYSTATIN SUSP 500,000 U/5 ML CUP SWISH-SWAL SCH ×4 (09:50→20:43)
[2017-05-26] MEDS: LACTOBACILLUS ACIDOPHILUS TAB PO SCH ×3 (09:51→17:53)
[2017-05-26] MEDS: POTASSIUM PHOSPHATE MONOBASIC 500 MG TAB PO SCH ×4 (09:51→20:43)
[2017-05-26] MEDS: MAGNESIUM OXIDE 400 MG TAB PEG SCH ×3 (09:51→17:53)
[2017-05-26] MEDS: DOCUSATE SODIUM 100 MG CAP PO SCH ×2 (09:51→20:43)
[2017-05-26] MEDS: SODIUM CHLORIDE 0.9% FLUSH 10 ML FLUSH IV FLUSH SCH ×3 (09:52→20:44)
[2017-05-26] MEDS: POTASSIUM CHLORIDE 10 MEQ CONTROLLED RELEASE TAB PO SCH ×2 (09:52→20:44)
[2017-05-26] MEDS ORDERED: FLUCONAZOLE 200 MG PREMIX BAG 100 ML IV SCH (12:30)
[2017-05-26] MEDS ORDERED: oxyCODONE HCL ORAL CONC 20 MG/ML SYRINGE PO PRN (13:15)
--- NOTE | 2017-05-26 13:39 | HHI.PR ---
Subjective Remarks 41-year-old female admitted secondary to lupus exacerbation. She has diffuse enteritis with ulceration secondary to this condition. Her primary issue has been hypokalemia and we demonstrated that she cannot absorb potassium very well enterically so IV potassium was used as a treatment to bring her potassium up to normal levels which has been present for 2 days. At this point were attempting to switch back to by mouth potassium and see how long this will hold her. She needs to be monitored for 1-2 days more in the hospital prior to considering discharge and part of this monitoring his to determine how often she may need to have outpatient assessments and IV replacements of potassium. At this point I'm estimating she may need to have this done about once a week. Complaint of back pain today worse than prior baseline. Potassium levels are improved and hemoglobin level is stable. Her oral candidiasis is not improving thus far and this may represent more extensive candidiasis further down the esophagus or stomach. Objective Vital Signs Date Time Temp Pulse Resp B/P Pulse Ox O2 Delivery O2 Flow Rate FiO2 05/26/17 12:14 98.4 92 18 133/82 99 05/26/17 08:28 98.8 78 18 146/96 98 05/26/17 07:00 81 05/26/17 04:00 98.9 89 18 138/72 98 05/26/17 00:00 98.7 74 18 130/71 97 05/25/17 20:00 98.8 90 18 137/97 100 05/25/17 19:00 80 05/25/17 16:00 98.4 81 18 152/92 99 I/O 05/25/17 05/25/17 05/25/17 05/26/17 05/26/17 05/26/17 06:59 14:59 22:59 06:59 14:59 22:59 Intake Total 940 ml Balance 940 ml Intake Oral 600 ml IV Total 340 ml # Voids 4 3 4 1 # Bowel Movements 0 1 Result Diagram: 05/26/17 0535 05/26/17 0535 Objective Remarks GENERAL: NAD, A&Ox3 HEAD: Normocephalic. NECK: Supple, trachea midline. No lymphadenopathy. EYES: No scleral icterus. No injection or drainage. CARDIOVASCULAR: Regular rate and rhythm without murmurs, gallops, or rubs. RESPIRATORY: Breath sounds equal bilaterally. No accessory muscle use. GASTROINTESTINAL: Abdomen soft, non-tender, nondistended. MUSCULOSKELETAL: No cyanosis, or edema. SKIN: Warm and dry. Malar Rash. Tooth Loss. Gingivitis. Hair Loss. NEURO: No focal neurological deficitis. MOUTH: Thrush and tongue and palate A/P Problem List: (1) Exacerbation of systemic lupus erythematosus ICD Code: M32.9 (2) SHABANA (acute kidney injury) ICD Code: N17.9 (3) Hypokalemia ICD Code: E87.6 Assessment and Plan Assessment and Plan 41 old female with lupus and related chronic hypokalemia admitted with a potassium level 1.9 and palpitations. Status post port placement. PICC line removed. Pain medication increased. IV antifungal added to swish and swallow nystatin. Follow potassium and hemoglobin levels. Monitoring for 1-2 days more is warranted as she is at risk for chronic declines in her potassium level. His stability is present on by mouth intake and she may be able to space follow-up outpatient evaluations and transfusions to about 1-2 weeks. Severe hypokalemia Poorly correct with GI absorption Potassium levels are improving slowly secondary to inability to replace potassium IV secondary to burning. Attempting IV replacement, this treatment is limited by burning sensations at IV site Lupus related pathology of the GI tract is suspected to inhibit her absorption and also to waste potassium Xieyal-l-Vjau placement pending Follow on telemetry Oral thrush Nystatin swish and swallow Follow for improvement Lupus exacerbation Systemic steroids started Follow for improvement She has a severe case of lupus and would benefit from immune modulation therapies long-term Pain medication increased Acute on chronic renal failure Improved with hydration Not normalized, chronic kidney disease related to lupus is likely present IV hydration Monitor renal function UTI Continue Rocephin Follow urine culture DVT prophylaxis Heparin Discharge planning Potassium was corrected and lupus exacerbation most improve prior to discharge Troy Hair MD May 26, 2017 13:39
[2017-05-26] MEDS: FLUCONAZOLE 200 MG PREMIX BAG 100 ML IV SCH (15:56)
--- NOTE | 2017-05-26 16:25 | RADRPT ---
EXAM DATE/TIME: 05/25/2017 11:29 [facility] COMPARISON: No previous studies available for comparison. INDICATIONS : GJ tube no longer needed PROCEDURE : 1. removal of GJ tube. The procedure was explained to the patient. The balloon was deflated. Gentle retraction removed the G J tube in its entirety. Gauze and tape were applied. The dermatotomy should close in the next couple days. CONCLUSION: GJ tube removal. Vic Williamson Jr., MD on May 26, 2017 at 16:22 Board Certified Radiologist. This report was verified electronically.
[2017-05-26] MEDS: PANTOPRAZOLE SOD 40 MG DELAYED RELEASE TAB PO SCH (20:43)
--- NOTE | 2017-05-26 22:37 | HHI.PR ---
Subjective Remarks DRAFT pt not seen 41-year-old female admitted secondary to lupus exacerbation. She has diffuse enteritis with ulceration secondary to this condition. Her primary issue has been hypokalemia and she cannot absorb potassium very well enterically so IV potassium was used as a treatment to bring her potassium up to normal levels which has been for 2 days. At this point were attempting to switch back to by mouth potassium and see how long this will hold her. She needs to be monitored for 1-2 days more in the hospital prior to considering discharge and part of this monitoring is to determine how often she may need to have outpatient assessments and IV replacements of potassium. At this point I'm estimating she may need to have this done about once a week. Complaint of back pain today worse than prior baseline. Potassium levels are improved and hemoglobin level is stable. Her oral candidiasis is not improving thus far and this may represent more extensive candidiasis further down the esophagus or stomach. Objective Vitals Vital Signs Date Time Temp Pulse Resp B/P Pulse Ox O2 Delivery O2 Flow Rate FiO2 05/26/17 20:05 98.6 92 20 164/103 100 05/26/17 16:16 98.4 87 18 143/84 100 05/26/17 12:14 98.4 92 18 133/82 99 05/26/17 08:28 98.8 78 18 146/96 98 05/26/17 07:00 81 05/26/17 04:00 98.9 89 18 138/72 98 05/26/17 00:00 98.7 74 18 130/71 97 I/O 05/25/17 05/25/17 05/25/17 05/26/17 05/26/17 05/26/17 07:00 15:00 23:00 07:00 15:00 23:00 Intake Total 940 ml Balance 940 ml Intake Oral 600 ml IV Total 340 ml # Voids 4 3 4 1 # Bowel Movements 0 1 Result Diagram: 05/26/17 0535 05/26/17 0535 Imaging Last Impressions Gastrostomy Tube Removal 05/25/17 1129 Signed Impressions: Service Date/Time: May 11:29 - CONCLUSION: GJ tube removal. Vic Williamson Jr., MD Port Line Insertion 05/22/17 0000 Signed Impressions: Service Date/Time: Monday, May 22, 2017 10:12 - CONCLUSION: Uncomplicated ultrasound and fluoroscopic guided implanted central venous port catheter placement as described in detail above. An 8 [place] Power port was placed. Vic Williamson Jr., MD Chest X-Ray 05/19/17 0000 Signed Impressions: Service Date/Time: Friday, May 19, 2017 17:40 - CONCLUSION: Right arm PICC with tip in the superior vena cava. Clear lungs. Brian Arrieta MD Objective Remarks GENERAL: NAD, A&Ox3 HEAD: Normocephalic. NECK: Supple, trachea midline. No lymphadenopathy. EYES: No scleral icterus. No injection or drainage. CARDIOVASCULAR: Regular rate and rhythm without murmurs, gallops, or rubs. RESPIRATORY: Breath sounds equal bilaterally. No accessory muscle use. GASTROINTESTINAL: Abdomen soft, non-tender, nondistended. MUSCULOSKELETAL: No cyanosis, or edema. SKIN: Warm and dry. Malar Rash. Tooth Loss. Gingivitis. Hair Loss. NEURO: No focal neurological deficitis. MOUTH: Thrush and tongue and palate Procedures Infusaport G tube removal A/P Problem List: (1) Hypokalemia ICD Code: E87.6 Status: Resolved (2) UTI (urinary tract infection) ICD Code: N39.0 Status: Resolved (3) Acute on chronic renal failure ICD Code: N17.9 Status: Acute Assessment and Plan 41 old female with lupus and related chronic hypokalemia admitted with a potassium level 1.9 and palpitations. Status post port placement. PICC line removed. Pain medication increased. IV antifungal added to swish and swallow nystatin. Follow potassium and hemoglobin levels. Monitoring for 1-2 days more is warranted as she is at risk for chronic declines in her potassium level. Her stability is dependent on by mouth intake and she may be able to space follow-up outpatient evaluations and transfusions to about 1-2 weeks. Severe hypokalemia Poorly correct with GI absorption Potassium levels are improving slowly secondary to inability to replace potassium IV secondary to burning. Attempting IV replacement, this treatment is limited by burning sensations at IV site Lupus related pathology of the GI tract is suspected to inhibit her absorption and also to waste potassium Clgasu-k-Nyvi placement Follow on telemetry Oral thrush Nystatin swish and swallow Follow for improvement Lupus exacerbation Systemic steroids started Follow for improvement She has a severe case of lupus and would benefit from immune modulation therapies long-term Pain medication increased Needs Rheum follow up Acute on chronic renal failure Improved with hydration Not normalized, chronic kidney disease related to lupus is likely present IV hydration Monitor renal function UTI Continue Rocephin Follow urine culture DVT prophylaxis Heparin Discharge Planning Once Potassium is corrected and lupus exacerbation most improved prior to discharge Problem Qualifiers (1) UTI (urinary tract infection): Qualified Code: N30.00 - Acute cystitis without hematuria Tom Bosch MD May 26, 2017 22:37
[2017-05-27] VITALS (9 sets, daily range): BP systolic 118–149; BP diastolic 75–96; PULSE 82–111; RESP 19–20; TEMP 97.7–98.9; O2SAT 98–100
[2017-05-27] MEDS: DIAZEPAM 5 MG TAB PEG PRN ×4 (00:31→16:52)
[2017-05-27] MEDS: methylPREDNISolone SOD SUCC 40 MG/1 ML VIAL IV PUSH SCH ×4 (00:34→21:07)
[2017-05-27] MEDS: HYDROmorphone HCL PF 1 MG/ML VIAL IV PUSH PRN ×3 (02:36→14:28)
[2017-05-27] MEDS: LEVOTHYROXINE SODIUM 100 MCG VIAL IV PUSH SCH (05:41)
[2017-05-27] MEDS: oxyCODONE HCL ORAL CONC 20 MG/ML SYRINGE PO PRN ×4 (05:42→23:15)
[2017-05-27] MEDS: HEPARIN SODIUM - SQ 10,000 UNITS/ML VIAL SQ SCH ×3 (05:42→21:07)
[2017-05-27 06:04] LABS: HEMATOCRIT 26.4 % (35.0-46.0); MEAN CELL VOLUME 89.3 FL (80.0-100.0); MEAN CORPUSCULAR HEMOGLOBIN 29.4 PG (27.0-34.0); PLATELET COUNT 239 TH/MM3 (150-450); RED BLOOD COUNT 2.95 MIL/MM3 (4.00-5.30); WHITE BLOOD COUNT 32.2 TH/MM3 (4.0-11.0)
[2017-05-27 06:12] LABS: REVIEW FLAG FINAL
[2017-05-27 06:25] LABS: BICARBONATE 17.3 MEQ/L (21.0-32.0); MAGNESIUM 2.4 MG/DL (1.5-2.5); POTASSIUM 3.9 MEQ/L (3.5-5.1)
[2017-05-27] MEDS: SODIUM CHLORIDE 0.9% FLUSH 10 ML FLUSH IV FLUSH SCH ×3 (09:00→21:05)
[2017-05-27] MEDS: MAGNESIUM OXIDE 400 MG TAB PEG SCH ×3 (09:01→16:52)
[2017-05-27] MEDS: LACTOBACILLUS ACIDOPHILUS TAB PO SCH ×3 (09:02→16:52)
[2017-05-27] MEDS: POTASSIUM PHOSPHATE MONOBASIC 500 MG TAB PO SCH ×2 (09:02→14:28)
[2017-05-27] MEDS: DOCUSATE SODIUM 100 MG CAP PO SCH ×2 (09:03→21:09)
[2017-05-27] MEDS: POTASSIUM CHLORIDE 10 MEQ CONTROLLED RELEASE TAB PO SCH ×2 (09:03→21:06)
[2017-05-27] MEDS: NYSTATIN SUSP 500,000 U/5 ML CUP SWISH-SWAL SCH ×4 (09:26→21:06)
[2017-05-27] MEDS: FLUCONAZOLE 200 MG PREMIX BAG 100 ML IV SCH (14:30)
--- NOTE | 2017-05-27 15:03 | HHI.PR ---
Subjective Remarks F/U SLE and hypokalemia. Crying c/o usual chronic pain. Tolerating po. Insisting she received IV Kcl this am but last dose 05/25. Lars RN Objective Vitals Vital Signs Date Time Temp Pulse Resp B/P Pulse Ox O2 Delivery O2 Flow Rate FiO2 05/27/17 12:05 98.5 99 19 136/82 99 05/27/17 10:52 98 21 05/27/17 08:14 98.8 98 19 118/75 99 05/27/17 08:00 86 05/27/17 07:00 86 05/27/17 04:14 98.7 88 20 122/83 98 05/27/17 00:10 98.9 111 20 124/83 99 05/26/17 20:05 98.6 92 20 164/103 100 05/26/17 16:16 98.4 87 18 143/84 100 I/O 05/26/17 05/26/17 05/26/17 05/27/17 05/27/17 05/27/17 06:59 14:59 22:59 06:59 14:59 22:59 Intake Total 120 ml 90 ml Balance 120 ml 90 ml Intake Oral 120 ml 90 ml # Voids 4 1 15 12 1 # Bowel Movements 1 Result Diagram: 05/27/17 0545 05/27/17 0545 Imaging Last Impressions Gastrostomy Tube Removal 05/25/17 1129 Signed Impressions: Service Date/Time: May 11:29 - CONCLUSION: GJ tube removal. Vic Williamson Jr., MD Port Line Insertion 05/22/17 0000 Signed Impressions: Service Date/Time: Monday, May 22, 2017 10:12 - CONCLUSION: Uncomplicated ultrasound and fluoroscopic guided implanted central venous port catheter placement as described in detail above. An 8 [place] Power port was placed. Vic Williamson Jr., MD Chest X-Ray 05/19/17 0000 Signed Impressions: Service Date/Time: Friday, May 19, 2017 17:40 - CONCLUSION: Right arm PICC with tip in the superior vena cava. Clear lungs. Brian Arrieta MD Objective Remarks WD, WN crying due to pain No oral thrush noted Regular Rate and rhythm Lungs clear equal breath sounds Alert and oriented nonfocal Procedures Infusaport G tube removal A/P Problem List: (1) Hypokalemia ICD Code: E87.6 Status: Resolved (2) UTI (urinary tract infection) ICD Code: N39.0 Status: Resolved (3) Acute on chronic renal failure ICD Code: N17.9 Status: Acute Assessment and Plan 41 old female with lupus and related chronic hypokalemia admitted with a potassium level 1.9 and palpitations. Status post port placement. PICC line removed. Pain medication increased. IV antifungal added to swish and swallow nystatin. Follow potassium and hemoglobin levels. Monitoring for 1 additional days is warranted as she is at risk for chronic declines in her potassium level. Her stability is dependent on by mouth intake and she may be able to space follow-up outpatient evaluations and transfusions to about 1-2 weeks. Severe hypokalemia Poorly correct with GI absorption Potassium levels are improving slowly secondary to inability to replace potassium IV secondary to burning. Attempting IV replacement, this treatment is limited by burning sensations at IV site Lupus related pathology of the GI tract is suspected inhibiting absorption and also to waste potassium Uplmnd-x-Gjpl placement . Patient states she doesn't have a infusion pump. Will follow up with case management Follow on telemetry Oral thrush Nystatin swish and swallow Follow for improvement Lupus exacerbation Systemic steroids dose will be decreased Follow for improvement She has a severe case of lupus and would benefit from immune modulation therapies long-term Pain medication increased Needs Rheum follow up Acute on chronic renal failure Improved with hydration Not normalized, chronic kidney disease related to lupus is likely present Status post IV hydration Monitor renal function patient still with acidosis UTI Status post Rocephin and Cipro DVT prophylaxis Heparin Discharge Planning Once Potassium is corrected and lupus exacerbation most improved prior to discharge. Possible discharge in 1-2 days switch to by mouth Diflucan Problem Qualifiers (1) UTI (urinary tract infection): Qualified Code: N30.00 - Acute cystitis without hematuria Tom Bosch MD May 27, 2017 15:02
[2017-05-27] MEDS ORDERED: methylPREDNISolone SOD SUCC 40 MG/1 ML VIAL IV PUSH SCH (15:15)
[2017-05-27] MEDS ORDERED: K-PHTAB PO (15:23)
[2017-05-27] MEDS ORDERED: NYST1000 SWISH-SWAL (15:23)
[2017-05-27] MEDS ORDERED: LACT PO (15:23)
[2017-05-27] MEDS ORDERED: DIFL100T PO (15:23)
--- NOTE | 2017-05-27 15:25 | HHI.DCPOC ---
Discharge Care Plan Diagnosis: (1) Exacerbation of systemic lupus erythematosus Your Health Problems Are: Difficulty with ADL Exercise Tolerance Goals to Promote Your Health * To prevent worsening of your condition and complications * To maintain your health at the optimal level Directions to Meet Your Goals Take your medications as prescribed Follow your dietary instruction Follow activity as directed Keep your appointments as scheduled Take your immunizations and boosters as scheduled If your symptoms worsen call your PCP, if no PCP go to Urgent Care Center or Emergency Room Smoking is Dangerous to Your Health. Avoid second hand smoke Call the 24-hour hour crisis hotline for domestic abuse at Tom Bosch MD May 27, 2017 15:25
[2017-05-27] MEDS ORDERED: OXYC1CON3 PO (15:53)
[2017-05-27] MEDS: ONDANSETRON HCL 4 MG/2 ML VIAL IVP PRN (16:54)
[2017-05-27] MEDS: PANTOPRAZOLE SOD 40 MG DELAYED RELEASE TAB PO SCH (21:06)
[2017-05-28] VITALS (8 sets, daily range): BP systolic 119–165; BP diastolic 69–93; PULSE 77–108; RESP 18–24; TEMP 97.9–99.2; O2SAT 98–100
[2017-05-28] MEDS: DIAZEPAM 5 MG TAB PEG PRN ×3 (01:25→22:49)
[2017-05-28] MEDS: oxyCODONE HCL ORAL CONC 20 MG/ML SYRINGE PO PRN ×3 (03:20→19:21)
[2017-05-28] MEDS: methylPREDNISolone SOD SUCC 40 MG/1 ML VIAL IV PUSH SCH ×2 (05:50→12:58)
[2017-05-28] MEDS: LEVOTHYROXINE SODIUM 100 MCG VIAL IV PUSH SCH (05:50)
[2017-05-28] MEDS: HEPARIN SODIUM - SQ 10,000 UNITS/ML VIAL SQ SCH ×3 (05:50→22:48)
[2017-05-28 06:28] LABS: MAGNESIUM 2.6 MG/DL (1.5-2.5); POTASSIUM 4.3 MEQ/L (3.5-5.1)
[2017-05-28] MEDS: SODIUM CHLORIDE 0.9% FLUSH 10 ML FLUSH IV FLUSH SCH ×3 (09:00→22:51)
[2017-05-28] MEDS: MAGNESIUM OXIDE 400 MG TAB PEG SCH ×2 (09:04→12:47)
[2017-05-28] MEDS: POTASSIUM CHLORIDE 10 MEQ CONTROLLED RELEASE TAB PO SCH ×2 (09:05→22:51)
[2017-05-28] MEDS: DOCUSATE SODIUM 100 MG CAP PO SCH ×2 (09:05→22:49)
[2017-05-28] MEDS: POTASSIUM PHOSPHATE MONOBASIC 500 MG TAB PO SCH ×2 (09:06→22:48)
[2017-05-28] MEDS: NYSTATIN SUSP 500,000 U/5 ML CUP SWISH-SWAL SCH ×4 (09:07→22:49)
[2017-05-28] MEDS: LACTOBACILLUS ACIDOPHILUS TAB PO SCH ×3 (09:07→18:44)
[2017-05-28] MEDS: FLUCONAZOLE 100 MG TAB PO SCH (09:07)
[2017-05-28] MEDS ORDERED: PRED20 PO (14:45)
--- NOTE | 2017-05-28 14:57 | HHI.PR ---
Subjective Remarks Follow-up hypokalemia. Potassium levels for the past 4 days have been adequate. She is tolerating diet and medications. No complaints of pain. Agrees to be discharged today however she tells me she doesn't have acute to her house since her uncle home she stays with is out of town and will be back tomorrow. Patient advised I will prescribe her narcotic since it is a different formulation but I will not refill Valium. Told patient to get prescriptions from her PCP. Patient again counseled regarding narcotics and benzodiazepine use. Patient reports he uses Valium for seizure. Discussed with RN to obtain records from Dr. Andrade of [place] patient's urinalysis. RN also to provide education regarding Shsvoq-z-Pewy care. Objective Vitals Vital Signs Date Time Temp Pulse Resp B/P Pulse Ox O2 Delivery O2 Flow Rate FiO2 05/28/17 12:03 98.7 91 18 119/69 99 05/28/17 08:28 98.7 100 19 138/87 100 05/28/17 04:00 97.9 77 18 122/80 98 05/28/17 01:57 102 05/28/17 00:00 99.2 92 20 133/87 98 05/27/17 20:00 97.7 82 20 149/96 100 05/27/17 16:50 98.5 96 19 142/82 99 I/O 05/27/17 05/27/17 05/27/17 05/28/17 05/28/17 05/28/17 07:00 15:00 23:00 07:00 15:00 23:00 Intake Total 90 ml Balance 90 ml Intake Oral 90 ml # Voids 12 1 13 6 2 # Bowel Movements 1 Result Diagram: 05/27/17 0545 05/28/17 0530 Objective Remarks WD, WN in no distress No oral thrush noted Regular Rate and rhythm Lungs clear equal breath sounds Alert and oriented nonfocal Procedures Infusaport G tube removal A/P Problem List: (1) Hypokalemia ICD Code: E87.6 Status: Resolved (2) UTI (urinary tract infection) ICD Code: N39.0 Status: Resolved (3) Acute on chronic renal failure ICD Code: N17.9 Status: Acute Assessment and Plan 41 old female with hx lupus and related chronic hypokalemia admitted with a potassium level 1.9 and palpitations. Status post port placement. PICC line removed. Pain medication adjusted. Antifungal added to swish and swallow nystatin. Follow potassium and hemoglobin levels. Monitoring for additional days is warranted as she is at risk for chronic declines in her potassium level. Her stability is dependent on by mouth intake and she may be able to space follow-up outpatient evaluations and transfusions to about 1-2 weeks. For the past 4 days, potassium levels have been adequately and has not required IV supplementation for 3 days. Severe hypokalemia Potassium levels were improving slowly secondary to inability to replace potassium IV secondary to burning. Attempting IV replacement, this treatment is limited by burning sensations at IV site Lupus related pathology of the GI tract is suspected inhibiting absorption and also to waste potassium Bonukx-n-Drue placement. RN to by education regarding care of port . Patient states she doesn't have a infusion pump. Will follow up with case management, request home healthcare Follow on telemetry Oral thrush. Improving Nystatin swish and swallow and Diflucan Follow for improvement Lupus exacerbation. Improving Of note previous ELLE and rheumatoid factor negative in the EMR. Systemic steroids dose will be tapered She has a severe case of lupus and would benefit from immune modulation therapies long-term Needs Rheum follow up Acute on chronic renal failure stage III Improved with hydration Not normalized, chronic kidney disease related to lupus is likely present Status post IV hydration Monitor renal function patient still with acidosis though stable. UTI Status post Rocephin and Cipro Review of EMR also shows she has history of gastroparesis. She has been tolerating diet. Patient advised to minimize use of narcotics DVT prophylaxis Heparin Discharge Planning Stable for discharge Problem Qualifiers (1) UTI (urinary tract infection): Qualified Code: N30.00 - Acute cystitis without hematuria Tom Bosch MD May 28, 2017 14:57
--- NOTE | 2017-05-28 15:00 | HHI.DS ---
Discharge Summary Admission Date May 17, 2017 at 00:05 Discharge Date: May 29, 2017 Admitting Diagnosis hypokalemia, UTI (1) Hypokalemia ICD Code: E87.6 Diagnosis: Principal (2) UTI (urinary tract infection) ICD Code: N39.0 Diagnosis: Principal (3) Acute on chronic renal failure ICD Code: N17.9 Diagnosis: Principal Procedures Infusaport G tube removal Brief History - From Admission The patient reports that her PEG tube "stays infected" and medicines always end up "staying in the tube" despite flushing and proper use. She is on a high potassium diet and jenna claudia supplements paid for by her insurance company. She takes potassium by mouth, K phos, and over the counter potassium. She states that on 05/16/17, she felt like she was "about to have a heat stroke" with palpitations and felt pulsations in arms and became frightened - feels like adrenaline quiroz like you feel "before you get into a car accident". Her head was leaning forward and felt too heavy to lift. Severe pain felt like a corset is around her thorax and is tightened. Reports bruising taking a long time to heal. Potassium was 1.9 in ED. Nausea with vomiting x 2 days and then it stopped. Menstrual bleeding for the entire month and it has stopped. CBC/BMP: 05/27/17 0545 05/28/17 0530 Significant Findings Laboratory Tests Test 05/26/17 05/27/17 05/28/17 05:35 05:45 05:30 White Blood Count 30.2 TH/MM3 32.2 TH/MM3 (4.0-11.0) (4.0-11.0) Red Blood Count 3.09 MIL/MM3 2.95 MIL/MM3 (4.00-5.30) (4.00-5.30) Hemoglobin 8.8 GM/DL 8.7 GM/DL (11.6-15.3) (11.6-15.3) Hematocrit 27.6 % 26.4 % (35.0-46.0) (35.0-46.0) Red Cell Distribution Width 17.7 % 18.0 % (11.6-17.2) (11.6-17.2) Mean Platelet Volume 6.8 FL (7.0-11.0) Chloride Level 112 MEQ/L 113 MEQ/L 113 MEQ/L (98-107) (98-107) (98-107) Carbon Dioxide Level 16.4 MEQ/L 17.3 MEQ/L 17.0 MEQ/L (21.0-32.0) (21.0-32.0) (21.0-32.0) Blood Urea Nitrogen 25 MG/DL (7-18) 26 MG/DL (7-18) 31 MG/DL (7-18) Estimat Glomerular Filtration 68 ML/MIN (>89) 61 ML/MIN (>89) 49 ML/MIN (>89) Rate Random Glucose 129 MG/DL 153 MG/DL 155 MG/DL (74-106) (74-106) (74-106) Calcium Level 8.3 MG/DL 7.8 MG/DL (8.5-10.1) (8.5-10.1) Phosphorus Level 1.8 MG/DL (2.5-4.9) Creatinine 1.22 MG/DL (0.50-1.00) Magnesium Level 2.6 MG/DL (1.5-2.5) Imaging Last Impressions Gastrostomy Tube Removal 05/25/17 1129 Signed Impressions: Service Date/Time: May 11:29 - CONCLUSION: GJ tube removal. Vic Williamson Jr., MD Port Line Insertion 05/22/17 0000 Signed Impressions: Service Date/Time: Monday, May 22, 2017 10:12 - CONCLUSION: Uncomplicated ultrasound and fluoroscopic guided implanted central venous port catheter placement as described in detail above. An 8 [place] Power port was placed. Vic Williamson Jr., MD Chest X-Ray 05/19/17 0000 Signed Impressions: Service Date/Time: Friday, May 19, 2017 17:40 - CONCLUSION: Right arm PICC with tip in the superior vena cava. Clear lungs. Brian Arrieta MD PE at Discharge WD, WN in no distress No oral thrush noted Regular Rate and rhythm Lungs clear equal breath sounds Alert and oriented nonfocal Hospital Course 41 old female with questionable history of lupus, gastroparesis and related chronic hypokalemia with recurrent admissions with no clear etiology readmitted with a potassium level 1.9 and palpitations. Severe hypokalemia. Also with hypophosphatemia and hypomagnesemia Potassium levels were improving slowly secondary to inability to replace potassium IV secondary to burning. Attempting IV replacement, this treatment is limited by burning sensations at IV site Lupus related pathology of the GI tract is suspected inhibiting absorption and also to waste potassium Hezwig-n-Fovg placement. RN to provide education regarding care of port . Patient states she doesn't have a infusion pump. Will follow up with case management, request home healthcare For the past 5 days, potassium levels have been adequate and has not required IV supplementation for 4 days. Follow on telemetry Oral thrush. Improving Nystatin swish and swallow and Diflucan Follow for improvement Questionable Lupus exacerbation. Improving Of note previous ELLE and rheumatoid factor negative in the EMR. Systemic steroids dose will be tapered May benefit from immune modulation therapies long-term Needs Rheum follow up Acute on chronic renal failure stage III Improved with hydration Not normalized, chronic kidney disease related to lupus maybe present Status post IV hydration Monitor renal function. Patient with improving acidosis secondary to vomiting and chronic renal failure. Of note patient was not acidotic on admission. Possible other causes of acidosis ? RTA type 1 or 2. S/p renal evaluation previously no renal wasting. We will hold potassium citrate replacement since acidosis is mild and improving UTI Status post Rocephin and Cipro Review of EMR also shows she has questionable gastroparesis. She has been tolerating diet. Patient advised to minimize use of narcotics. GT removed 2/ 2 site infection. Case discussed with GI who previously provided care TSH low but not suppressed Hx sick euthyroid. Dc Synthroid. Possible bipolar disorder. Consult psychiatry DVT prophylaxis Heparin I have contacted patient's PCP and neurology awaiting return call. Pt Condition on Discharge: Stable Discharge Disposition: Disch w/ Home Health Serv Discharge Time: > 30 minutes Discharge Instructions DIET: Follow Instructions for: As Tolerated, No Restrictions Activities you can perform: Regular-No Restrictions Activities to Avoid: Driving Follow up Referrals: PCP Follow-up - 1 Week Rheumatology - 1 Week New Medications: Oxycodone (Oxycodone) 5 Mg Cap 15 MG PO Q6H PRN PAIN #84 Ref 0 CAP Prednisone (Prednisone) 20 Mg Tab 40 MG PO DAILY Take 2 pills daily for 4 days then 1 pills daily for 4 days then stop Control Inflammation #15 Ref 0 TAB Fluconazole (Diflucan) 100 Mg Tab 100 MG PO DAILY Infection #21 TAB Lactobacillus Acidophilus (Acidophilus/l-Sporogenes) 1 Tab Tab 1 TAB PO TID Bowel Management #90 TAB Nystatin Liq (Nystatin Liq) 100,000 unit/ml Susp 5 ML SWISH-SWAL QID Infection #240 ML Changed Medications: Magnesium Oxide (Magnesium Oxide) 400 Mg Tab 400 MG PEG BID Nutritional Supplement #90 Ref 0 TAB (Changed from: TID) Potassium Phosphate Monobasic (K-Phos) 500 Mg Tab 1000 MG PO BID Electrolyte Replacement #60 Ref 3 TAB (Changed from: PCHS; 240) Continued Medications: Cholecalciferol (Vitamin D3) 10,000 Unit Cap 15719 UNITS PO Q3D @ HS Nutritional Supplement #1 Ref 0 BOTTLE Diazepam (Valium) 5 Mg Tab 5 MG PEG Q8HR PRN ANXIETY #10 TAB Pantoprazole (Pantoprazole) 40 Mg Tab 40 MG PO HS Reflux #30 Ref 0 TAB Polyethylene Glycol 3350 Powder (Polyethylene Glycol 3350 Powder) 17 Gm Pow 17 GM G-TUBE DAILY PRN CONSTIPATION #100 GM Potassium Chloride ER (Potassium Chloride ER) 20 Meq Tab 40 MEQ PO TID Electrolyte Replacement #90 Ref 0 TAB (This prescription has been renewed) Sucralfate Liq (Sucralfate Liq) 1 Gm/10 Ml Bernadette 1 GM PEG ACHS Electrolyte Replacement #100 GM Discontinued Medications: Hydrocodone-Acetaminophen (Hydrocodone-Acetaminophen) 5-325 mg Tab 1 TAB PO Q4H PRN PAIN GREATER THAN 5 #10 TAB Additional Information I spent 35 minutes [id number] with the patient or on the [place] discussing the patient's disposition, prognosis, and plan of care with patient's caregivers. Over half the time spent was devoted to counseling the patient regarding placement in coordinating care with caregivers and case management. Tom Bosch MD May 28, 2017 15:00 Tom Bosch MD May 28, 2017 15:00
[2017-05-28] MEDS ORDERED: predniSONE 20 MG TAB PO SCH (18:00)
[2017-05-28] MEDS: predniSONE 20 MG TAB PO SCH (18:45)
[2017-05-28] MEDS: PANTOPRAZOLE SOD 40 MG DELAYED RELEASE TAB PO SCH (22:49)
[2017-05-28] MEDS: ONDANSETRON HCL 4 MG/2 ML VIAL IVP PRN (22:50)
[2017-05-29] VITALS: BP 142/91; PULSE 95; RESP 28; TEMP 97.9; O2SAT 97
[2017-05-29 00:05] VITALS: PULSE 90
[2017-05-29] MEDS: oxyCODONE HCL ORAL CONC 20 MG/ML SYRINGE PO PRN ×3 (00:43→10:58)
[2017-05-29 04:00] VITALS: BP 137/94; PULSE 86; RESP 20; TEMP 98.7; O2SAT 100
[2017-05-29] MEDS: HEPARIN SODIUM - SQ 10,000 UNITS/ML VIAL SQ SCH ×2 (04:55→12:45)
[2017-05-29] MEDS: LEVOTHYROXINE SODIUM 100 MCG VIAL IV PUSH SCH (04:56)
[2017-05-29] MEDS ORDERED: MAGN400T2 PEG (04:59)
--- NOTE | 2017-05-29 05:03 | HHI.FF ---
Face to Face Verification Diagnosis: (1) Exacerbation of systemic lupus erythematosus (2) Acute on chronic renal failure (3) Hypokalemia Home Health Nursing Order: Medical education Medication education-adverse effect Wound care and dressing changes Nursing assessment with vital signs Instructions: Infusaport care and weekly BMP and Magnesium I have seen patient Brisa Hernandez on 05/29/17. My clinical findings support the need for the requested home health care services because: Ltd mobility - disease progression Deconditioned w/ increased weakness I certify that my clinical findings support that this patient is homebound because: Need for psychosocial assistance Tom Bosch MD May 29, 2017 05:03
[2017-05-29 07:45] LABS: BICARBONATE 18.7 MEQ/L (21.0-32.0); MAGNESIUM 2.5 MG/DL (1.5-2.5); POTASSIUM 3.6 MEQ/L (3.5-5.1)
[2017-05-29 08:00] VITALS: BP 135/95; PULSE 101; RESP 19; TEMP 98.4; O2SAT 100
[2017-05-29] MEDS: POTASSIUM CHLORIDE 10 MEQ CONTROLLED RELEASE TAB PO SCH (08:22)
[2017-05-29] MEDS: predniSONE 20 MG TAB PO SCH (08:22)
[2017-05-29] MEDS: DOCUSATE SODIUM 100 MG CAP PO SCH (08:23)
[2017-05-29] MEDS: POTASSIUM PHOSPHATE MONOBASIC 500 MG TAB PO SCH (08:23)
[2017-05-29] MEDS: NYSTATIN SUSP 500,000 U/5 ML CUP SWISH-SWAL SCH ×2 (08:23→12:45)
[2017-05-29] MEDS: FLUCONAZOLE 100 MG TAB PO SCH (08:23)
[2017-05-29] MEDS: LACTOBACILLUS ACIDOPHILUS TAB PO SCH ×2 (08:23→12:47)
[2017-05-29] MEDS: DIAZEPAM 5 MG TAB PEG PRN (08:23)
[2017-05-29] MEDS: SODIUM CHLORIDE 0.9% FLUSH 10 ML FLUSH IV FLUSH SCH ×2 (09:00→10:55)
[2017-05-29] MEDS ORDERED: POTA-163 PO (11:26)
--- NOTE | 2017-05-29 11:57 | HHI.PR ---
Subjective Remarks Follow-up hypokalemia. Discussed and seen with RN. She has been tolerating diet denies odynophagia and diarrhea. Patient has been informed that there is no clear etiology for her recurrent admissions for electrolyte abnormalities (I have reviewed previous admissions). She was evaluated by GI and nephrology. She also was seen by psychiatry and was diagnosed with possible bipolar disorder with hypomania but was resistant to treatment. Objective Vitals Vital Signs Date Time Temp Pulse Resp B/P Pulse Ox O2 Delivery O2 Flow Rate FiO2 05/29/17 08:00 98.4 101 19 135/95 100 05/29/17 04:00 98.7 86 20 137/94 100 05/29/17 00:05 90 05/29/17 00:00 97.9 95 28 142/91 97 05/28/17 20:00 98.3 93 24 165/93 100 05/28/17 16:46 98.2 98 18 142/84 100 05/28/17 13:49 16 05/28/17 12:03 98.7 91 18 119/69 99 I/O 05/28/17 05/28/17 05/28/17 05/29/17 05/29/17 05/29/17 06:59 14:59 22:59 06:59 14:59 22:59 Intake Total 32 ml Balance 32 ml Intake Oral 32 ml # Voids 6 2 6 3 # Bowel Movements 1 1 Result Diagram: 05/27/17 0545 05/29/17 0600 Objective Remarks WD, WN in no distress No oral thrush noted Regular Rate and rhythm Lungs clear equal breath sounds Alert and oriented nonfocal Patient very dramatic insisting she needs to stay in the hospital longer Procedures Infusaport G tube removal A/P Problem List: (1) Hypokalemia ICD Code: E87.6 Status: Resolved (2) UTI (urinary tract infection) ICD Code: N39.0 Status: Resolved (3) Acute on chronic renal failure ICD Code: N17.9 Status: Acute Assessment and Plan 41 old female with questionable history of lupus, gastroparesis and related chronic hypokalemia with recurrent admissions with no clear etiology readmitted with a potassium level 1.9 and palpitations. Severe hypokalemia. Also with hypophosphatemia and hypomagnesemia Potassium levels were improving slowly secondary to inability to replace potassium IV secondary to burning. Attempting IV replacement, this treatment is limited by burning sensations at IV site Lupus related pathology of the GI tract is suspected inhibiting absorption and also to waste potassium [id number] placement. RN to provide education regarding care of port . Patient states she doesn't have a infusion pump. Will follow up with case management, request home healthcare For the past 5 days, potassium levels have been adequate and has not required IV supplementation for 4 days. Follow on telemetry Oral thrush. Improving Nystatin swish and swallow and Diflucan Follow for improvement Questionable Lupus exacerbation. Improving Of note previous ELLE and rheumatoid factor negative in the EMR. Systemic steroids dose will be tapered May benefit from immune modulation therapies long-term Needs Rheum follow up Acute on chronic renal failure stage III Improved with hydration Not normalized, chronic kidney disease related to lupus maybe present Status post IV hydration Monitor renal function. Patient with improving acidosis secondary to vomiting and chronic renal failure. Of note patient was not acidotic on admission. Possible other causes of acidosis ? RTA type 1 or 2. S/p renal evaluation previously no renal wasting. We will hold potassium citrate replacement since acidosis is mild and improving UTI Status post Rocephin and Cipro Review of EMR also shows she has questionable gastroparesis. She has been tolerating diet. Patient advised to minimize use of narcotics. GT removed 2/ 2 site infection. Case discussed with GI who previously provided care TSH low but not suppressed Hx sick euthyroid. Dc Synthroid. Possible bipolar disorder. Consult psychiatry DVT prophylaxis Heparin I have contacted patient's PCP and neurology awaiting return call. Discharge Planning Stable for discharge Problem Qualifiers (1) UTI (urinary tract infection): Qualified Code: N30.00 - Acute cystitis without hematuria Tom Bosch MD May 29, 2017 11:57
[2017-05-29 12:13] VITALS: BP 121/75; PULSE 90; RESP 20; TEMP 98.4; O2SAT 100
[2017-05-29] MEDS ORDERED: POTASSIUM CHLORIDE 10 MEQ CONTROLLED RELEASE TAB PO SCH (13:00)
[2017-05-29] MEDS ORDERED: OXYC1CAP PO (14:27)
== END 2017-05-29 13:55 | disposition home health service (06) | DRG 674 ==
LOC: NEPD 21:31 → NEDA 05-17 00:05 → N06B 05-17 03:09 → N05A 05-17 20:51
PROVIDERS: ADMIT Internal Medicine; ATTEND Internal Medicine
PROC: 0JH63WZ Insertion of Totally Implantable Vascular Access Device into Chest Subcutaneous Tissue and Fascia, Percutaneous Approach (ICD-10-PCS; principal; 2017-05-22)
PROC: B543ZZA Ultrasonography of Right Jugular Veins, Guidance (ICD-10-PCS; 2017-05-22)
PROC: B513ZZA Fluoroscopy of Right Jugular Veins, Guidance (ICD-10-PCS; 2017-05-22)
PROC: 05HM33Z Insertion of Infusion Device into Right Internal Jugular Vein, Percutaneous Approach (ICD-10-PCS; 2017-05-22)
PROC: 0DP6XUZ Removal of Feeding Device from Stomach, External Approach (ICD-10-PCS; 2017-05-25)
DX: N17.9 Acute kidney failure, unspecified (principal); B37.0 Candidal stomatitis; E87.2 Acidosis; M32.19 Other organ or system involvement in systemic lupus erythematosus; M32.14 Glomerular disease in systemic lupus erythematosus; N39.0 Urinary tract infection, site not specified; Z68.1 Body mass index [BMI] 19.9 or less, adult; E83.42 Hypomagnesemia; N18.3 Chronic kidney disease, stage 3 (moderate); E83.39 Other disorders of phosphorus metabolism; K31.84 Gastroparesis; E87.6 Hypokalemia; E86.0 Dehydration; K28.9 Gastrojejunal ulcer, unspecified as acute or chronic, without hemorrhage or perforation; R63.4 Abnormal weight loss; K52.89 Other specified noninfective gastroenteritis and colitis; F41.9 Anxiety disorder, unspecified; D64.9 Anemia, unspecified; Z85.038 Personal history of other malignant neoplasm of large intestine; F31.9 Bipolar disorder, unspecified; Z86.14 Personal history of Methicillin resistant Staphylococcus aureus infection; Z88.0 Allergy status to penicillin; Z88.1 Allergy status to other antibiotic agents; Z88.5 Allergy status to narcotic agent; Z91.013 Allergy to seafood; Z93.1 Gastrostomy status
CPT/HCPCS: 36561; 36569; 71010; 76937; 77001; 80048; 80053; 81001; 82272; 83735; 84100; 84132; 84436; 84443; 84481; 85014; 85018; 85025; 85027; 87077; 87086; 87186; 96374; 96375; 99152; 99153; 99213; C1788; G0463; J0696; J0744; J1170; J1200; J1450; J1642; J1644; J2250; J2270; J2405; J2920; J2930; J3010; J3370; J3480; J7050; J7512; Q9967

== ENCOUNTER 2017-06-05 11:08 | Inpatient (IN) | payer OTHER ==
[2017-06-05] VITALS (9 sets, daily range): BP systolic 109–140; BP diastolic 56–83; PULSE 85–101; RESP 15–20; TEMP 98.4–100; O2SAT 96–100
[~2017-06-05] VITALS: Ht 175.3 cm; Wt 54.0 kg
[~2017-06-05 11:08] MED LIST changes: +DIFL100T PO; -HYDR-3516 PO; +LACT PO; +NYST1000 SWISH-SWAL; +OXYC1CAP PO; +PRED20 PO
--- NOTE | 2017-06-05 11:16 | PD ---
Physical Exam Time Seen by Provider: 11:15 Narrative 41 y/o female hx of SLE, recently admitted for hypokalemia, here for evaluation of LE edema, rash for 2 days. Vital signs reviewed. Seen at triage desk. Awaiting bed placement. Data Data Last Documented VS Vital Signs Date Time Temp Pulse Resp B/P Pulse Ox O2 Delivery O2 Flow Rate FiO2 06/05/17 11:10 98.4 101 15 140/83 96 MDM Medical Record Reviewed: Yes Supervised Visit with ARY: Shahab Pierre Jun 05, 2017 11:16
[2017-06-05] MEDS ORDERED: SODIUM CHLORIDE 0.9% FLUSH 10 ML FLUSH IVF PRN (11:45)
--- NOTE | 2017-06-05 11:45 | PD ---
HPI Chief Complaint: Edema Time Seen by Provider: 11:36 Travel History International Travel<30 days: No Contact w/Intl Traveler<30days: No Traveled to known affect area: No History of Present Illness HPI 41-year-old female presents to the emergency department for evaluation of bilateral lower extremity edema, pain, redness, generalized weakness. Patient was discharged from the hospital on May 29, 2017 after being admitted for hypokalemia, UTI, acute on chronic renal failure. The patient had her G-tube removed and an [id number] placed at that time. Patient states the home healthcare stool her oxycodone and her potassium pills. However, she states that the home healthcare moved her potassium pills. She also states that she is out of Valium which she takes for seizures. She reports having 3 seizures since her discharge. Patient states that she feels weak, but not nearly as week and she is had with her profound hypokalemia and the past. She states she ran a fever 3 days ago, denies any fever at this time. Patient is unsure if swelling, erythema is from lupus. 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) Cardiovascular Problems: Yes High Cholesterol: No Chemotherapy: No Chest Pain: No Congestive Heart Failure: No COPD: No Cerebrovascular Accident: No Diabetes: No Diminished Hearing: No Endocrine: Yes (HX ENDOMETRIOUSIS) Gastrointestinal Disorders: Yes GERD: Yes Genitourinary: Yes Headaches: Yes Hiatal Hernia: No Heparin Induced Thrombocytopen: No Hypertension: No Immune Disorder: No Implanted Vascular Access Dvce: No Kidney Stones: Yes Musculoskeletal: No Neurologic: Yes Psychiatric: No Reproductive: Yes Respiratory: No Immunizations Current: Yes Migraines: Yes Pneumonia: Yes Radiation Therapy: No Renal Failure: No Seizures: Yes (juvenile epilepsy) Sickle Cell Disease: No Sleep Apnea: No Thyroid Disease: No Ulcer: Yes (Pt states she has severe ulcers from throat to rectum) PNEUMOCCOCAL Vaccine (Year): 3 ?: Not : 2 Para: 1 Miscarriage: 1 : 0 Ectopic : Yes (AT 17 YEARS OF AGE) Ovarian Cysts: Yes Past Surgical History Abdominal Surgery: Yes (multiple Laps) AICD: No Appendectomy: Yes Arteriovenous Shunt: No Cardiac Surgery: No Ear Surgery: No Endocrine Surgery: Yes Eye Surgery: No Genitourinary Surgery: Yes (Interstitial cystitis) Gynecologic Surgery: Yes Hysterectomy: Yes (PARTIAL OOPHERECTOMY AND PARTIAL SALPINECTOMY) Insulin Pump: No Joint Replacement: No Neurologic Surgery: No Oral Surgery: Yes (Removal of abscess) Pacemaker: No Thoracic Surgery: No Other Surgery: Yes (endometriosis, ovarian cyst,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,appendectomy, cervix partial re) Social History Alcohol Use: No Tobacco Use: No Substance Use: No Allergies-Medications (Allergen,Severity, Reaction): Coded Allergies: Keflex (Verified Allergy, Severe, RASH,SWELLING, 05/16/17) Penicillin (Verified Allergy, Severe, RASH,SWELLING, 05/16/17) Seafood (Verified Allergy, Severe, SWELLING IN THROAT, SOB, 05/16/17) Toradol (Verified Allergy, Severe, RASH, 05/16/17) Compazine (Verified Allergy, Mild, DYSTONIC REACTION, 05/16/17) Phenergan (Verified Allergy, Mild, DYSTONIC REACTION, 05/16/17) Neurontin (Verified Adverse Reaction, Severe, SEIZURES, 05/16/17) *MDRO Multi-Drug Resistant Organism (Verified Adverse Reaction, Unknown, Cleared - 04/21/16, 05/16/17) MRSA axilla/ breast 2009 MRSA PCR (nares) negative - 04/19/16 & 04/21/16 Cleared per Infection Control Reported Meds & Prescriptions Reported Meds & Active Scripts Active Oxycodone (Oxycodone HCl) 5 Mg Cap 15 Mg PO Q6H PRN Potassium Chloride ER (Potassium Chloride) 20 Meq Tab 40 Meq PO TID Magnesium Oxide 400 Mg Tab 400 Mg PEG BID Prednisone 20 Mg Tab 40 Mg PO DAILY Take 2 pills daily for 4 days then 1 pills daily for 4 days then stop Nystatin Liq 100,000 unit/ml Susp 5 Ml SWISH-SWAL QID Acidophilus/l-Sporogenes (Lactobacillus Acidophilus) 1 Tab Tab 1 Tab PO TID Diflucan (Fluconazole) 100 Mg Tab 100 Mg PO DAILY K-Phos (Potassium Phosphate Monobasic) 500 Mg Tab 1,000 Mg PO BID Valium (Diazepam) 5 Mg Tab 5 Mg PEG Q8HR PRN Pantoprazole (Pantoprazole Sodium) 40 Mg Tab 40 Mg PO HS Sucralfate Liq (Sucralfate) 1 Gm/10 Ml Bernadette 1 Gm PEG ACHS Vitamin D3 (Cholecalciferol) 10,000 Unit Cap 20,000 Units PO Q3D @ HS Polyethylene Glycol 3350 Powder (Polyethylene Glycol) 17 Gm Pow 17 Gm G-TUBE DAILY PRN Review of Systems Except as stated in HPI: all other systems reviewed are Neg Physical Exam Narrative GENERAL: Well-nourished, well-developed female patient, afebrile. SKIN: Focused skin assessment warm/dry. Patient has small crusts noted to face. Multiple ecchymosis noted to abdomen. HEAD: Normocephalic. Atraumatic. EYES: No scleral icterus. No injection or drainage. NECK: Supple, trachea midline. No JVD or lymphadenopathy. CARDIOVASCULAR: Regular rate and rhythm without murmurs, gallops, or rubs. RESPIRATORY: Breath sounds equal bilaterally. No accessory muscle use. Lung sounds are clear to auscultation throughout. GASTROINTESTINAL: Abdomen soft, non-tender, nondistended. MUSCULOSKELETAL: No cyanosis. Patient has 2+ bilateral lower extremity edema with associated warmth and tenderness to palpation. BACK: Nontender without obvious deformity. No CVA tenderness. RECTAL EXAM: No masses or tenderness, stool is brown. External hemorrhoids are noted. Hemoccult was negative. This exam was done with MARIA ISABEL Armstrong at bedside. Data Data Last Documented VS Vital Signs Date Time Temp Pulse Resp B/P Pulse Ox O2 Delivery O2 Flow Rate FiO2 06/05/17 11:43 99 06/05/17 11:10 98.4 101 15 140/83 Orders Electrocardiogram (06/05/17 11:34) Complete Blood Count With Diff (06/05/17 11:34) Comprehensive Metabolic Panel (06/05/17 11:34) Magnesium (Mg) (06/05/17 11:34) Act Partial Throm Time (Ptt) (06/05/17 11:34) Prothrombin Time / Inr (Pt) (06/05/17 11:34) Urinalysis - C+S If Indicated (06/05/17 11:34) Ecg Monitoring (06/05/17 11:34) Iv Access Insert/Monitor (06/05/17 11:34) Oximetry (06/05/17 11:34) Sodium Chloride 0.9% Flush (Ns Flush) (06/05/17 11:45) Us Leg Venous Doppler Bilat (06/05/17 ) Type And Screen (06/05/17 12:25) Red Blood Cells (Rbc) (06/05/17 12:25) Blood Product Administration .UPON TRANSFUSION (06/05/17 12:25) Sodium Chlor 0.9% 250 Ml Inj (Ns 250 Ml (06/05/17 12:30) Potassium Chloride (Kcl) (06/05/17 14:00) Potassium Chloride (Kcl) (06/05/17 21:00) Magnesium Sulfate 1 Gm Premix (Magnesium (06/05/17 14:00) Labs Laboratory Tests Test 06/05/17 11:40 White Blood Count 14.1 TH/MM3 Red Blood Count 2.29 MIL/MM3 Hemoglobin 6.6 GM/DL Hematocrit 21.0 % Mean Corpuscular Volume 91.6 FL Mean Corpuscular Hemoglobin 28.9 PG Mean Corpuscular Hemoglobin 31.5 % Concent Red Cell Distribution Width 17.6 % Platelet Count 156 TH/MM3 Mean Platelet Volume 6.6 FL Neutrophils (%) (Auto) 73.6 % Lymphocytes (%) (Auto) 14.9 % Monocytes (%) (Auto) 9.0 % Eosinophils (%) (Auto) 1.9 % Basophils (%) (Auto) 0.6 % Neutrophils # (Auto) 10.4 TH/MM3 Lymphocytes # (Auto) 2.1 TH/MM3 Monocytes # (Auto) 1.3 TH/MM3 Eosinophils # (Auto) 0.3 TH/MM3 Basophils # (Auto) 0.1 TH/MM3 CBC Comment AUTO DIFF Differential Comment AUTO DIFF CONFIRMED Platelet Estimate LOW Platelet Morphology Comment NORMAL Ovalocytes 1+ Prothrombin Time 9.9 SEC Prothromb Time International 0.9 RATIO Ratio Activated Partial 26.6 SEC Thromboplast Time Sodium Level 142 MEQ/L Potassium Level 3.1 MEQ/L Chloride Level 108 MEQ/L Carbon Dioxide Level 23.4 MEQ/L Anion Gap 11 MEQ/L Blood Urea Nitrogen 23 MG/DL Creatinine 1.56 MG/DL Estimat Glomerular Filtration 37 ML/MIN Rate Random Glucose 87 MG/DL Calcium Level 7.9 MG/DL Magnesium Level 1.7 MG/DL Total Bilirubin 0.2 MG/DL Aspartate Amino Transf 32 U/L (AST/SGOT) Alanine Aminotransferase 31 U/L (ALT/SGPT) Alkaline Phosphatase 39 U/L Total Protein 5.6 GM/DL Albumin 2.5 GM/DL MDM Medical Decision Making Medical Screen Exam Complete: Yes Emergency Medical Condition: Yes Medical Record Reviewed: Yes Interpretation(s) US - CONCLUSION: Normal examination. Differential Diagnosis Cellulitis versus exacerbation of SLE versus DVT versus electrolyte abnormality Narrative Course 41-year-old female presents to the emergency department for evaluation of bilateral lower extremity edema, erythema, pain that started when she was discharged from her last visit. EKG, CBC, CMP, Magnesium, Coags, UA, US of the bilateral lower extremities are ordered and pending. EKG shows SR, HR 86. CBC shows leukocytosis of 14.1, however, patient has been on corticosteroids. Hemoglobin is 6.6, hematocrit 21.0. Magnesium is 1.7. CMP shows hypokalemia at 3.1, BUN 23, creatinine 1.56. Coags are unremarkable. US is negative for DVT bilaterally. Type and screen is ordered. 2 units of PRBCs are ordered. Hemoccult is negative. Dr. Mckeon accepted admission. [facility] Point of Care Internal Pos. & Neg. Controls: Passed Fecal Specimen Occult Blood: Negative Diagnosis Primary Impression: Anemia Qualified Code: D64.9 - Anemia, unspecified type Additional Impression: Generalized weakness Admitting Information Admitting Physician Requests: Admit Fadumo Deleon Jun 05, 2017 11:45
[2017-06-05 12:02] LABS: AUTOMATED NEUTROPHIL # 10.4 TH/MM3 (1.8-7.7); BASOPHIL # 0.1 TH/MM3 (0-0.2); BASOPHIL % 0.6 % (0.0-2.0); EOSINOPHIL # 0.3 TH/MM3 (0-0.4); EOSINOPHIL % 1.9 % (0.0-4.0); LYMPH % 14.9 % (9.0-44.0); LYMPHOCYTE # 2.1 TH/MM3 (1.0-4.8); MEAN CELL VOLUME 91.6 FL (80.0-100.0); MEAN CORPUSCULAR HEMOGLOBIN 28.9 PG (27.0-34.0); MEAN CORPUSCULAR HGB CONC 31.5 % (32.0-36.0); NEUT % 73.6 % (16.0-70.0); PLATELET COUNT 156 TH/MM3 (150-450); RED BLOOD COUNT 2.29 MIL/MM3 (4.00-5.30); RED CELL DISTRIBUTION WIDTH 17.6 % (11.6-17.2); WHITE BLOOD COUNT 14.1 TH/MM3 (4.0-11.0)
[2017-06-05 12:05] LABS: HEMO FLAGS AUTO DIFF
[2017-06-05 12:10] LABS: APTT (PATIENT) 26.6 SEC (24.3-30.1); INTERNATIONAL NORMALIZED RATIO 0.9 RATIO; PROTHROMBIN TIME - PATIENT 9.9 SEC (9.8-11.6)
[2017-06-05 12:17] LABS: ALT (GPT) 31 U/L (10-53); ANION GAP 11 MEQ/L (5-15); AST (GOT) 32 U/L (15-37); BICARBONATE 23.4 MEQ/L (21.0-32.0); BLOOD UREA NITROGEN 23 MG/DL (7-18); CHLORIDE 108 MEQ/L (98-107); GLOMERULAR FILTRATION RATE 37 ML/MIN (>89); MAGNESIUM 1.7 MG/DL (1.5-2.5); POTASSIUM 3.1 MEQ/L (3.5-5.1); SODIUM (NA) 142 MEQ/L (136-145)
[2017-06-05 12:19] LABS: ALKALINE PHOSPHATASE 39 U/L (45-117); TOTAL BILIRUBIN ADULT 0.2 MG/DL (0.2-1.0)
[2017-06-05] MEDS ORDERED: SODIUM CHLOR 0.9% 250 ML INJ 250 ML IV ONE (12:30)
[2017-06-05 12:47] LABS: OVALOCYTES 1+ (NORMAL); PLATELET ESTIMATE SMEAR LOW (NORMAL); PLATELET MORPHOLOGY NORMAL (NORMAL)
[2017-06-05 12:48] LABS: SCAN/DIFF AUTO DIFF CONFIRMED
--- NOTE | 2017-06-05 12:53 | RADRPT ---
EXAM DATE/TIME: 06/05/2017 11:51 [facility] COMPARISON: US LEG BILATERAL VENOUS DOPPLER, December 31, 2013, 8:52. INDICATIONS : Bilateral leg pain. MEDICAL HISTORY : Gastroesophageal reflux disease. Seizures. Dizziness. Syncope. Headache. Migraine. Numbness. Tachyc ardia. Pnemonia. Ulcer. Ovarian cysts. Ectopic . Kidney stones. Endometriosis. Cancer. SURGICAL HISTORY : Appendectomy. Abscess removal. Multiple laparscopy. Partial oopherectomy and salpingectomy. ENCOUNTER: Subsequent ACUITY: 3 days PAIN SCORE: 4/10 LOCATION: Bilateral leg. TECHNIQUE: Venous ultrasound of the left and right leg was performed from the inguinal ligament to the proximal calf. Real-time, color Doppler and spectral tracing, compression and augmentation techniques were us ed. FINDINGS: RIGHT LEG: There is normal compressibility of the deep venous system from the inguinal region to the proximal ca lf. No echogenic clot is seen in the lumen of the common femoral, femoral, popliteal, and posterior tibial veins. There is a normal response of the venous system to proximal and distal augmentation an d respiration. LEFT LEG: There is normal compressibility of the deep venous system from the inguinal region to the proximal ca lf. No echogenic clot is seen in the lumen of the common femoral, femoral, popliteal, and posterior tibial veins. There is a normal response of the venous system to proximal and distal augmentation an d respiration. CONCLUSION: Normal examination. Vic Williamson Jr., MD on June 05, 2017 at 12:50 Board Certified Radiologist. This report was verified electronically.
[2017-06-05] MEDS ORDERED: ONDANSETRON HCL 4 MG/2 ML VIAL IVP PRN (14:00)
[2017-06-05] MEDS ORDERED: SENNOSIDES 8.6 MG TAB PO PRN (14:00)
[2017-06-05] MEDS ORDERED: NALOXONE HCL 0.4 MG/ML AMP IV PRN (14:00)
[2017-06-05] MEDS ORDERED: SODIUM CHLORIDE 0.9% FLUSH 10 ML FLUSH IV FLUSH PRN (14:00)
[2017-06-05] MEDS ORDERED: BISACODYL 10 MG SUPP RECTAL PRN (14:00)
[2017-06-05] MEDS ORDERED: LACTULOSE SYRUP 20 GM/30 ML CUP PO PRN (14:00)
[2017-06-05] MEDS ORDERED: MAGNESIUM HYDROXIDE SUSP 30 ML CUP PO PRN (14:00)
[2017-06-05] MEDS ORDERED: ACETAMINOPHEN 325 MG TAB PO PRN (14:00)
[2017-06-05] MEDS ORDERED: POTASSIUM CHLORIDE 10 MEQ CONTROLLED RELEASE TAB PO ONE (14:00)
[2017-06-05] MEDS: MAGNESIUM SULFATE 1 GM PREMIX 100 ML IV SCH ×2 (14:24→16:33)
--- NOTE | 2017-06-05 15:02 | HHI.HP ---
HPI Service [facility] Primary Care Physician Neeraj Gilbert Admission Diagnosis symptomatic anemia Diagnoses: Chief Complaint: edema, pain, weakness Travel History International Travel<30 Days: No Contact w/Intl Traveler <30 Da: No Traveled to Known Affected Are: No History of Present Illness Written by Brenda Marie, acting as scribe for Dr. Mckeon on 06/05/17 at 15:05. This note was transcribed by scribe BELEN Matthews. I, Dr. Kaveh Mckeon personally performed the history, physical exam, and medical decision making; and confirmed the accuracy of the information in the transcribed note. Authenticated by Dr. Kaveh Mckeon on 06/05/17 at 22:49. 41-year-old female with history of lupus, gastroparesis, chronic recurrent hypokalemia, endometriosis, seizures, GI ulcers, presents with a 2 day history of bilateral leg pain, swelling, and redness. The patient was recently hospitalized 05/17/17-05/29/17 for hypokalemia, PEG tube infection s/p removal, and infusaport placement for outpatient electrolyte abnormalities. Since discharge, the patient reports continued diffuse pain and weakness. Yesterday she noticed bilateral lower extremity edema, erythema, and diffuse pain. Denies fevers/chills. She denies any new medications. She also reports she ran out of Valium and had some seizure activity. She states she is only taking Valium for her seizures, not on any other antiepileptic. She says she has seen a neurologist in the past and diagnosed her with "juvenile myoclonic epilepsy". The patient reports her PCP Dr. Gilbert has been in the process of referring her to [facility] for her lupus and electrolyte abnormalities however she cannot get in until the end of the month. Upon arrival, Hgb noted to be 6.6, previously 8.7 on 05/27. No reported bleeding. Hemoccult negative in the ED. 2u pRBC transfusion ordered by the ED. Review of Systems Except as stated in HPI: all other systems reviewed are Neg Past Family Social History Past Medical History Chronic recurrent hypokalemia Questionable diagnosis of SLE Appendix cancer 3 - 4 years ago [facility] Endometriosis Seizures gastroparesis esophagitis GI ulcers colitis Past Surgical History Laparoscopy x 4 Cystoscopy EGD/Colonoscopy PEG tube placement/removal Infusaport placement Appendectomy Reported Medications Oxycodone (Oxycodone HCl) 5 Mg Cap 15 Mg PO Q6H PRN Potassium Chloride ER (Potassium Chloride) 20 Meq Tab 40 Meq PO TID Magnesium Oxide 400 Mg Tab 400 Mg PEG BID Prednisone 20 Mg Tab 40 Mg PO DAILY Take 2 pills daily for 4 days then 1 pills daily for 4 days then stop Nystatin Liq 100,000 unit/ml Susp 5 Ml SWISH-SWAL QID Acidophilus/l-Sporogenes (Lactobacillus Acidophilus) 1 Tab Tab 1 Tab PO TID Diflucan (Fluconazole) 100 Mg Tab 100 Mg PO DAILY K-Phos (Potassium Phosphate Monobasic) 500 Mg Tab 1,000 Mg PO BID Valium (Diazepam) 5 Mg Tab 5 Mg PEG Q8HR PRN Pantoprazole (Pantoprazole Sodium) 40 Mg Tab 40 Mg PO HS Sucralfate Liq (Sucralfate) 1 Gm/10 Ml Bernadette 1 Gm PEG ACHS Vitamin D3 (Cholecalciferol) 10,000 Unit Cap 20,000 Units PO Q3D @ HS Polyethylene Glycol 3350 Powder (Polyethylene Glycol) 17 Gm Pow 17 Gm G-TUBE DAILY PRN Allergies: Coded Allergies: Keflex (Verified Allergy, Severe, RASH,SWELLING, 05/16/17) Penicillin (Verified Allergy, Severe, RASH,SWELLING, 05/16/17) Seafood (Verified Allergy, Severe, SWELLING IN THROAT, SOB, 05/16/17) Toradol (Verified Allergy, Severe, RASH, 05/16/17) Compazine (Verified Allergy, Mild, DYSTONIC REACTION, 05/16/17) Phenergan (Verified Allergy, Mild, DYSTONIC REACTION, 05/16/17) Neurontin (Verified Adverse Reaction, Severe, SEIZURES, 05/16/17) *MDRO Multi-Drug Resistant Organism (Verified Adverse Reaction, Unknown, Cleared - 04/21/16, 05/16/17) MRSA axilla/ breast 2009 MRSA PCR (nares) negative - 04/19/16 & 04/21/16 Cleared per Infection Control Active Ordered Medications Current Medications Medications (Trade) Dose Ordered Sig/Osito Route Start Time Stop Time Status Last Admin (NS 250 ml Inj) 250 ml @ 15 mls/hr ONCE ONCE IV 06/05/17 12:30 06/06/17 05:09 06/05/17 13:08 Potassium Chloride 20 meq 20 meq Q12HR PO 06/05/17 21:00 06/08/17 20:59 (Magnesium Sulfate 1 Gm Premix) 100 ml @ 100 mls/hr Q1H IV 06/05/17 14:00 06/05/17 15:59 06/05/17 14:24 (NS Flush) 2 ml UNSCH PRN IV FLUSH 06/05/17 14:00 (NS Flush) 2 ml BID IV FLUSH 06/05/17 21:00 (Tylenol) 650 mg Q4H PRN PO 06/05/17 14:00 (Zofran Inj) 4 mg Q6H PRN IVP 06/05/17 14:00 (Narcan Inj) 0.4 mg UNSCH PRN IV 06/05/17 14:00 (Irais-Colace) 1 tab BID PO 06/05/17 21:00 (Milk Of Magnesia Liq) 30 ml Q12H PRN PO 06/05/17 14:00 (Senokot) 17.2 mg Q12H PRN PO 06/05/17 14:00 (Dulcolax Supp) 10 mg DAILY PRN RECTAL 06/05/17 14:00 (Lactulose Liq) 30 ml DAILY PRN PO 06/05/17 14:00 Family History Patient is adopted, does not know father's history Biological maternal side of the family with SLE, endometrial cancer. +Family history of lung CA, thyroid problems, breast CA Social History Denies any tobacco, alcohol, or illicit drug use. Physical Exam Vital Signs Vital Signs Date Time Temp Pulse Resp B/P Pulse Ox O2 Delivery O2 Flow Rate FiO2 06/05/17 14:02 97 21 06/05/17 11:43 99 06/05/17 11:10 98.4 101 15 140/83 96 Physical Exam GENERAL: Well-nourished, well-developed middle aged female patient in [facility]. SKIN: Warm and dry. No rash. HEAD: Normocephalic. Atraumatic. EYES: Pupils equal and round. No scleral icterus. No injection or drainage. ENT: No nasal bleeding or discharge. Mucous membranes pink and moist. NECK: Supple. Trachea midline. CARDIOVASCULAR: Regular rate and rhythm. S1, S2 noted. No murmur appreciated. RESPIRATORY: No accessory muscle use. Clear to auscultation. Breath sounds equal bilaterally. GASTROINTESTINAL: Abdomen soft, non-tender, nondistended. Normoactive bowel sounds x4. MUSCULOSKELETAL: No obvious deformities. Bilateral lower extremities with erythema from mid rivas down to dorsal feet, with 1+edema, diffuse tenderness to palpation. NEUROLOGICAL: Awake and alert. No obvious cranial nerve deficits. Motor grossly within normal limits. Normal speech. PSYCHIATRIC: Appropriate mood and affect; insight and judgment normal. Laboratory Laboratory Tests Test 06/05/17 11:40 White Blood Count 14.1 Red Blood Count 2.29 Hemoglobin 6.6 Hematocrit 21.0 Mean Corpuscular Volume 91.6 Mean Corpuscular Hemoglobin 28.9 Mean Corpuscular Hemoglobin 31.5 Concent Red Cell Distribution Width 17.6 Platelet Count 156 Mean Platelet Volume 6.6 Neutrophils (%) (Auto) 73.6 Lymphocytes (%) (Auto) 14.9 Monocytes (%) (Auto) 9.0 Eosinophils (%) (Auto) 1.9 Basophils (%) (Auto) 0.6 Neutrophils # (Auto) 10.4 Lymphocytes # (Auto) 2.1 Monocytes # (Auto) 1.3 Eosinophils # (Auto) 0.3 Basophils # (Auto) 0.1 CBC Comment AUTO DIFF Differential Comment AUTO DIFF CONFIRMED Platelet Estimate LOW Platelet Morphology Comment NORMAL Ovalocytes 1+ Prothrombin Time 9.9 Prothromb Time International 0.9 Ratio Activated Partial 26.6 Thromboplast Time Sodium Level 142 Potassium Level 3.1 Chloride Level 108 Carbon Dioxide Level 23.4 Anion Gap 11 Blood Urea Nitrogen 23 Creatinine 1.56 Estimat Glomerular Filtration 37 Rate Random Glucose 87 Calcium Level 7.9 Magnesium Level 1.7 Total Bilirubin 0.2 Aspartate Amino Transf 32 (AST/SGOT) Alanine Aminotransferase 31 (ALT/SGPT) Alkaline Phosphatase 39 Total Protein 5.6 Albumin 2.5 Result Diagram: 06/05/17 1140 06/05/17 1140 Imaging Last Impressions Lower Extremity Ultrasound 06/05/17 0000 Signed Impressions: Service Date/Time: Monday, June 05, 2017 11:51 - CONCLUSION: Normal examination. Vic Williamson Jr., MD Assessment and Plan Problem List: (1) Anemia ICD Code: D64.9 Status: Chronic (2) Hypokalemia ICD Code: E87.6 Status: Resolved (3) Hypomagnesemia ICD Code: E83.42 Status: Acute (4) SHABANA (acute kidney injury) ICD Code: N17.9 Status: Resolved Assessment and Plan 41-year-old female with history of lupus, gastroparesis, chronic recurrent hypokalemia, endometriosis, seizures, GI ulcers, presents with a 2 day history of bilateral leg pain, swelling, and redness. Normocytic Anemia: Hgb 6.6, previously 8.7 on 05/27/17. No reported bleeding. Hemoccult negative in the ED. -2u pRBC transfusion ordered -Monitor CBC -check iron studies/ferritin/b12/folate Bilateral Lower Extremity Rash: possible drug eruption vs lupus flare. Does not appear to be cellulitis, afebrile with mild leukocytosis likely secondary to recent steroid use. -continue patient's prednisone -continue oxycodone prn pain -monitor for improvement Hypokalemia/Hypomagnesemia: K 3.1. Mag 1.7, with hx of recurrent hypokalemia likely secondary to malabsorption. -given po KCl replacement -continue patient's po KCl 40meq tid. Will administer Mag Sulfate 2g IV. -monitor BMP/mag SHABANA: Cr 1.56, previously Cr 0.95 on 05/29/17. Suspect prerenal secondary to dehydration with poor oral intake. -give IVF with NS -avoid nephrotoxins -repeat BMP in am Seizures: reportedly on valium only for seizures. 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 Avoid mechanical prophylaxis with bilateral lower extremity rash/edema. Encourage ambulation. Discussed Condition With Patient, ER PA Physician Certification 2 Midnight Certification Type: Admission for Inpatient Services Order for Inpatient Services The services are ordered in accordance with Medicare regulations or non- Medicare payer requirements, as applicable. In the case of services not specified as inpatient-only, they are appropriately provided as inpatient services in accordance with the 2-midnight benchmark. Estimated LOS (days): 3 days is the estimated time the patient will need to remain in the hospital, assuming treatment plan goals are met and no additional complications. Post-Hospital Plan: Home Problem Qualifiers (1) Anemia: Qualified Code: D64.9 - Anemia, unspecified type Brenda Marie PA-C Jun 05, 2017 15:02 Aristeo Mckeon DO Jun 05, 2017 22:52
[2017-06-05] MEDS: NYSTATIN SUSP 500,000 U/5 ML CUP SWISH-SWAL SCH ×2 (17:27→21:00)
[2017-06-05] MEDS: POTASSIUM CHLORIDE 20 MEQ CONTROLLED RELEASE TAB PO SCH (17:27)
[2017-06-05] MEDS: DIAZEPAM 5 MG TAB PO PRN (17:30)
[2017-06-05] MEDS: SODIUM CHLOR 0.9% 1000 ML INJ 1,000 ML IV SCH (19:30)
[2017-06-05 20:37] LABS: FERRITIN 36 NG/ML (8-252); TRANSFERRIN IRON PROFILE 231 MG/DL (200-360)
[2017-06-05] MEDS ORDERED: POTASSIUM CHLORIDE 20 MEQ CONTROLLED RELEASE TAB PO SCH (21:00)
[2017-06-05] MEDS: POTASSIUM PHOSPHATE MONOBASIC 500 MG TAB PO SCH (21:00)
[2017-06-05] MEDS: DOCUSATE SODIUM 50 MG/SENNA 8.6 MG TAB PO SCH (21:00)
[2017-06-05] MEDS ORDERED: PANTOPRAZOLE SOD 40 MG DELAYED RELEASE TAB PO SCH (21:00)
[2017-06-05] MEDS: SODIUM CHLORIDE 0.9% FLUSH 10 ML FLUSH IV FLUSH SCH (21:02)
[2017-06-05] MEDS: MAGNESIUM OXIDE 400 MG TAB PO SCH (23:06)
[2017-06-05] MEDS ORDERED: DIAZEPAM 5 MG TAB PO ONE (23:45)
[2017-06-06] VITALS (9 sets, daily range): BP systolic 104–123; BP diastolic 51–71; PULSE 81–98; RESP 16–18; TEMP 97.8–99.3; O2SAT 10–99
[2017-06-06] MEDS: DIAZEPAM 5 MG TAB PO PRN ×2 (01:26→09:42)
[2017-06-06] MEDS: SODIUM CHLOR 0.9% 1000 ML INJ 1,000 ML IV SCH (04:53)
[2017-06-06 07:10] LABS: AUTOMATED NEUTROPHIL # 6.4 TH/MM3 (1.8-7.7); BASOPHIL # 0.1 TH/MM3 (0-0.2); BASOPHIL % 0.5 % (0.0-2.0); EOSINOPHIL # 0.3 TH/MM3 (0-0.4); EOSINOPHIL % 2.4 % (0.0-4.0); HEMO FLAGS DIFF FINAL; LYMPH % 28.2 % (9.0-44.0); MEAN CELL VOLUME 88.2 FL (80.0-100.0); MEAN CORPUSCULAR HEMOGLOBIN 29.5 PG (27.0-34.0); MEAN CORPUSCULAR HGB CONC 33.4 % (32.0-36.0); MONO % 8.4 % (0.0-8.0); NEUT % 60.5 % (16.0-70.0); PLATELET COUNT 158 TH/MM3 (150-450); RED BLOOD COUNT 3.29 MIL/MM3 (4.00-5.30); RED CELL DISTRIBUTION WIDTH 16.8 % (11.6-17.2); WHITE BLOOD COUNT 10.5 TH/MM3 (4.0-11.0)
[2017-06-06 07:19] LABS: BICARBONATE 24.9 MEQ/L (21.0-32.0); MAGNESIUM 2.3 MG/DL (1.5-2.5); POTASSIUM 3.5 MEQ/L (3.5-5.1)
[2017-06-06] MEDS: DOCUSATE SODIUM 50 MG/SENNA 8.6 MG TAB PO SCH (09:00)
[2017-06-06] MEDS ORDERED: FLUCONAZOLE 100 MG TAB PO SCH (09:00)
[2017-06-06] MEDS ORDERED: predniSONE 20 MG TAB PO SCH (09:00)
[2017-06-06] MEDS: SODIUM CHLORIDE 0.9% FLUSH 10 ML FLUSH IV FLUSH SCH (09:13)
[2017-06-06] MEDS: POTASSIUM PHOSPHATE MONOBASIC 500 MG TAB PO SCH (09:14)
[2017-06-06] MEDS: NYSTATIN SUSP 500,000 U/5 ML CUP SWISH-SWAL SCH ×2 (09:14→12:28)
[2017-06-06] MEDS: POTASSIUM CHLORIDE 20 MEQ CONTROLLED RELEASE TAB PO SCH ×2 (09:15→12:27)
[2017-06-06] MEDS: MAGNESIUM OXIDE 400 MG TAB PO SCH (11:07)
[2017-06-06] MEDS ORDERED: DIAZ5 PEG (13:23)
[2017-06-06] MEDS ORDERED: PRED20 PO (13:29)
--- NOTE | 2017-06-06 13:30 | HHI.DCPOC ---
Discharge Care Plan Diagnosis: (1) Anemia (2) Hypokalemia (3) bilateral lower extremity rash Goals to Promote Your Health * To prevent worsening of your condition and complications * To maintain your health at the optimal level Directions to Meet Your Goals Take your medications as prescribed Follow your dietary instruction Follow activity as directed Keep your appointments as scheduled Take your immunizations and boosters as scheduled If your symptoms worsen call your PCP, if no PCP go to Urgent Care Center or Emergency Room Smoking is Dangerous to Your Health. Avoid second hand smoke Call the 24-hour hour crisis hotline for domestic abuse at Brenda Marie PA-C Jun 06, 2017 13:30
--- NOTE | 2017-06-06 13:34 | HHI.PR ---
Subjective Remarks Follow up for anemia, rash. The patient is seen ambulating at bedside. She reports her rash has improved, only minimal erythema, but still reportedly painful. Patient currently massaging her feet and legs with a wooden massage roller. Patient is still able to ambulate. Denies fevers/chills. Denies any lightheadedness/dizziness/chest pain/shortness of breath. She is requesting prescriptions for Valium and Oxycodone. Objective Vitals Vital Signs Date Time Temp Pulse Resp B/P Pulse Ox O2 Delivery O2 Flow Rate FiO2 06/06/17 12:00 98.8 89 16 110/71 98 06/06/17 10:25 82 06/06/17 08:00 98.5 83 18 104/51 99 06/06/17 04:00 97.8 81 18 104/58 98 06/06/17 03:58 97.8 83 18 104/58 99 06/06/17 01:16 98.7 93 18 110/63 97 06/06/17 01:11 99.0 93 18 115/66 97 06/06/17 01:04 98.9 94 18 123/55 10 06/06/17 00:00 99.3 98 18 114/62 99 06/05/17 23:40 99.3 98 18 114/62 99 06/05/17 21:14 100.0 91 18 114/63 100 06/05/17 21:07 98.6 90 18 115/62 100 06/05/17 20:46 98.9 87 18 109/56 100 06/05/17 20:00 98.9 87 18 109/56 100 06/05/17 20:00 94 06/05/17 16:00 98.8 86 20 110/78 100 06/05/17 14:02 97 21 I/O 06/05/17 06/05/17 06/05/17 06/06/17 06/06/17 06/06/17 07:00 15:00 23:00 07:00 15:00 23:00 Intake Total 480 ml 878 ml Balance 480 ml 878 ml Intake Oral 480 ml 240 ml IV Total 638 ml # Voids 2 3 # Bowel Movements 0 0 Result Diagram: 06/06/17 0616 06/06/17 0616 Imaging Last Impressions Lower Extremity Ultrasound 06/05/17 0000 Signed Impressions: Service Date/Time: Monday, June 05, 2017 11:51 - CONCLUSION: Normal examination. Vic Williamson Jr., MD Objective Remarks GENERAL: Well-nourished, well-developed middle aged female patient in [facility]. SKIN: Warm and dry. No rash. HEENT: Normocephalic. Atraumatic.Pupils equal and round. Mucous membranes pink and moist. NECK: Supple. Trachea midline. CARDIOVASCULAR: Regular rate and rhythm. S1, S2 noted. No murmur appreciated. RESPIRATORY: No accessory muscle use. Clear to auscultation. Breath sounds equal bilaterally. GASTROINTESTINAL: Abdomen soft, non-tender, nondistended. Normoactive bowel sounds x4. MUSCULOSKELETAL: No obvious deformities. Bilateral lower extremities with minimal erythema from mid rivas down to dorsal feet, with 1+edema, nontender with distraction. NEUROLOGICAL: Awake and alert. No obvious cranial nerve deficits. Motor grossly within normal limits. Normal speech. Procedures None. Medications and IVs Current Medications Medications (Trade) Dose Ordered Sig/Osito Route Start Time Stop Time Status Last Admin (NS Flush) 2 ml UNSCH PRN IV FLUSH 06/05/17 14:00 (NS Flush) 2 ml BID IV FLUSH 06/05/17 21:00 06/06/17 09:13 (Tylenol) 650 mg Q4H PRN PO 06/05/17 14:00 (Zofran Inj) 4 mg Q6H PRN IVP 06/05/17 14:00 (Narcan Inj) 0.4 mg UNSCH PRN IV 06/05/17 14:00 (Irais-Colace) 1 tab BID PO 06/05/17 21:00 06/05/17 21:00 (Milk Of Magnesia Liq) 30 ml Q12H PRN PO 06/05/17 14:00 (Senokot) 17.2 mg Q12H PRN PO 06/05/17 14:00 (Dulcolax Supp) 10 mg DAILY PRN RECTAL 06/05/17 14:00 Lactulose 30 ml 30 ml DAILY PRN PO 06/05/17 14:00 (NS 1000 ml Inj) 1,000 ml @ 84 mls/hr [id number] IV 06/05/17 16:45 06/06/17 04:53 (Valium) 5 mg Q8HR PRN PO 06/05/17 16:45 06/06/17 09:42 (Diflucan) 100 mg DAILY PO 06/06/17 09:00 06/06/17 09:14 (Mag-Ox) 400 mg BID@23 PO 06/05/17 23:00 06/06/17 11:07 (Mycostatin Liq) 5 ml QID SWISH-SWAL 06/05/17 18:00 06/06/17 12:28 (Roxicodone) 15 mg Q6H PRN PO 06/05/17 16:45 06/06/17 11:08 (Protonix) 40 mg HS PO 06/05/17 21:00 06/05/17 21:01 (KCl) 40 meq TID PO 06/05/17 18:00 06/06/17 12:27 (K-Phos) 1,000 mg BID PO 06/05/17 21:00 06/06/17 09:14 (Deltasone) 40 mg DAILY PO 06/06/17 09:00 06/06/17 09:14 (Heparin Central Flush) 500 units UNSCH IV FLUSH 06/06/17 14:00 06/06/17 15:09 (NS Flush) 5 ml UNSCH PRN IVF 06/06/17 14:00 A/P Problem List: (1) Anemia ICD Code: D64.9 Status: Chronic (2) Hypokalemia ICD Code: E87.6 Status: Resolved (3) Hypomagnesemia ICD Code: E83.42 Status: Acute (4) SHABANA (acute kidney injury) ICD Code: N17.9 Status: Resolved Assessment and Plan 41-year-old female with history of lupus, gastroparesis, chronic recurrent hypokalemia, endometriosis, seizures, GI ulcers, presents with a 2 day history of bilateral leg pain, swelling, and redness. Normocytic Anemia: Hgb 6.6, previously 8.7 on 05/27/17. No reported bleeding. Hemoccult negative in the ED. -2u pRBC transfused 06/05 -Repeat CBC with Hgb 9.7 -vit b12 and folate wnl -iron studies consistent with iron deficiency, start on ferrous sulfate bid -repeat outpatient CBC in 2 days Bilateral Lower Extremity Rash: possible drug eruption vs lupus flare. Does not appear to be cellulitis, afebrile with mild leukocytosis likely secondary to recent steroid use. -continue patient's prednisone -continue oxycodone prn pain -much improvement without any antibiotics -recommend continue prednisone at discharge and f/up with rheumatology as outpatient Hypokalemia/Hypomagnesemia: K 3.1. Mag 1.7, with hx of recurrent hypokalemia likely secondary to malabsorption. -given po KCl replacement -continue patient's po KCl 40meq tid. Given Mag Sulfate 2g IV. -repeat K 3.5 and Mag 2.3. Resolved. SHABANA: Cr 1.56, previously Cr 0.95 on 05/29/17. Suspect prerenal secondary to dehydration with poor oral intake. -give IVF with NS -avoid nephrotoxins -repeat BMP shows much improvement, Cr 1.08 Seizures: reportedly on valium only for seizures. 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 Avoid mechanical prophylaxis with bilateral lower extremity rash/edema. Encouraged ambulation. Discharge Planning Patient requesting prescriptions for both Valium and Oxycodone, questioned patient as I remembered per EMR patient received prescription from Dr. Bosch for oxycodone upon previous discharge. Patient states "no he said he was going to but the nurse never gave it to me". Upon review of [employer] [place] Prescription Drug Monitoring Website, patient FILLED prescription for oxycodone 5mg [id number] on 05/29/17. Will only provide prescription for Valium at discharge. Discharge patient to home Condition on discharge: Improved Regular Diet as tolerated Ad Maryam activity Rx written: Valium 5mg q8h prn anxiety #20; Prednisone taper (40mg daily x7days , 20mg daily x7days, 10mg daily x7days) Follow-up with primary care physician Dr. Gilbert within 1 week Follow up with rheumatology Repeat CBC/BMP as outpatient in 2 days Problem Qualifiers (1) Anemia: Qualified Code: D64.9 - Anemia, unspecified type Brenda Marie PA-C Jun 06, 2017 1:34 pm
[2017-06-06] MEDS ORDERED: DIAZ5 PO (13:50)
[2017-06-06] MEDS ORDERED: SODIUM CHLORIDE 0.9% FLUSH 10 ML FLUSH IVF PRN (14:00)
--- NOTE | 2017-06-06 15:05 | EKG ---
Date Performed: 06/05/2017 Time Performed: 11:58:59 PTAGE: 41 years EKG: Sinus rhythm PROLONGED QT INTERVAL ABNORMAL ECG PREVIOUS TRACING : 04/22/2017 05.45 Rate has increased significantly since prior tracing. QRS i s now less prolonged. Clinical correlation is recommended. DOCTOR: Sonido Michelle Interpretating Date/Time 06/06/2017 15:03:07
[2017-06-06] MEDS ORDERED: FERR325T8 PO (15:33)
== END 2017-06-06 16:05 | disposition home or self-care (01) | DRG 812 ==
LOC: NEPE 11:08 → NEDA 13:52 → N04B 16:19
PROVIDERS: ADMIT Hospitalist; ATTEND Hospitalist
PROC: 30233N1 Transfusion of Nonautologous Red Blood Cells into Peripheral Vein, Percutaneous Approach (ICD-10-PCS; principal; 2017-06-05)
DX: D50.9 Iron deficiency anemia, unspecified (principal); N17.9 Acute kidney failure, unspecified; M32.9 Systemic lupus erythematosus, unspecified; K31.84 Gastroparesis; Z93.1 Gastrostomy status; G40.B09 Juvenile myoclonic epilepsy, not intractable, without status epilepticus; E87.6 Hypokalemia; N18.9 Chronic kidney disease, unspecified; Z85.038 Personal history of other malignant neoplasm of large intestine; F31.9 Bipolar disorder, unspecified; F41.9 Anxiety disorder, unspecified; K21.9 Gastro-esophageal reflux disease without esophagitis; Z87.442 Personal history of urinary calculi; Z87.11 Personal history of peptic ulcer disease; R60.0 Localized edema; K64.4 Residual hemorrhoidal skin tags
CPT/HCPCS: 36430; 80048; 80053; 82607; 82728; 82746; 83540; 83550; 83735; 85025; 85610; 85730; 86850; 86900; 86901; 86920; 93005; 93970; 96360; J1642; J3475; J7030; J7050; J7512; P9016

== ENCOUNTER 2017-06-18 09:42 | Emergency (ER) | payer OTHER ==
[~2017-06-18] VITALS: Ht 175.3 cm; Wt 57.0 kg
[~2017-06-18 09:42] MED LIST changes: -DIAZ5 PEG; +DIAZ5 PO; +FERR325T8 PO
[2017-06-18 09:44] VITALS: BP 145/89; PULSE 98; RESP 24; TEMP 98.5; O2SAT 94
[2017-06-18] MEDS ORDERED: MAGN400T2 PO (10:11)
--- NOTE | 2017-06-18 10:11 | PD ---
HPI Chief Complaint: Edema Time Seen by Provider: 10:05 Travel History International Travel<30 days: No Contact w/Intl Traveler<30days: No Traveled to known affect area: No History of Present Illness HPI 41-year-old female with history of lupus, ulcerative colitis, chronic hypokalemia, currently being evaluated by [facility] for further treatment, presents to the ER today because she states that she has noticed that her legs up on more swollen for the last few days. She states that she has had this issue in the past and it comes and goes. She states that she has noticed some redness around both legs as well and is concerned because she has some cracks coming into the skin. She denies any fevers, vomiting, chest pains, shortness of breath, or other symptoms. She she is currently on chronic steroid therapy for her lupus. 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) Cardiovascular Problems: Yes (HX OF AFIB) High Cholesterol: No Chemotherapy: No Chest Pain: No Congestive Heart Failure: No COPD: No Cerebrovascular Accident: No Diabetes: No Diminished Hearing: No Endocrine: Yes (HX ENDOMETRIOUSIS) Gastrointestinal Disorders: Yes GERD: Yes Genitourinary: Yes Headaches: Yes Hiatal Hernia: No Heparin Induced Thrombocytopen: No Hypertension: No Immune Disorder: No Implanted Vascular Access Dvce: No Kidney Stones: Yes Musculoskeletal: No Neurologic: Yes Psychiatric: Yes Reproductive: Yes Respiratory: No Immunizations Current: Yes Migraines: Yes Pneumonia: Yes Radiation Therapy: No Renal Failure: No Seizures: Yes (juvenile epilepsy) Sickle Cell Disease: No Sleep Apnea: No Thyroid Disease: No Ulcer: Yes (Pt states she has severe ulcers from throat to rectum) Tetanus Vaccination: < 5 Years Influenza Vaccination: Yes PNEUMOCCOCAL Vaccine (Year): 3 ?: Not : 2 Para: 1 Miscarriage: 1 : 0 Ectopic : Yes (AT 17 YEARS OF AGE) Ovarian Cysts: Yes Past Surgical History Abdominal Surgery: Yes (multiple Laps) AICD: No Appendectomy: Yes Arteriovenous Shunt: No Cardiac Surgery: No Ear Surgery: No Endocrine Surgery: Yes Eye Surgery: No Genitourinary Surgery: Yes (Interstitial cystitis) Gynecologic Surgery: Yes Hysterectomy: Yes (PARTIAL) Insulin Pump: No Joint Replacement: No Neurologic Surgery: No Oral Surgery: Yes (Removal of abscess) Pacemaker: No Thoracic Surgery: No Other Surgery: Yes (endometriosis, ovarian cyst,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,appendectomy, cervix partial re) Social History Alcohol Use: No (PT DENIES ) Tobacco Use: No Substance Use: No (PT DENIES) Allergies-Medications (Allergen,Severity, Reaction): Coded Allergies: Keflex (Verified Allergy, Severe, RASH,SWELLING, 06/18/17) Penicillin (Verified Allergy, Severe, RASH,SWELLING, 06/18/17) Seafood (Verified Allergy, Severe, SWELLING IN THROAT, SOB, 06/18/17) Toradol (Verified Allergy, Severe, RASH, 06/18/17) Compazine (Verified Allergy, Mild, DYSTONIC REACTION, 06/18/17) Phenergan (Verified Allergy, Mild, DYSTONIC REACTION, 06/18/17) Neurontin (Verified Adverse Reaction, Severe, SEIZURES, 06/18/17) *MDRO Multi-Drug Resistant Organism (Verified Adverse Reaction, Unknown, Cleared - 04/21/16, 06/18/17) MRSA axilla/ breast 2009 MRSA PCR (nares) negative - 04/19/16 & 04/21/16 Cleared per Infection Control Reported Meds & Prescriptions Reported Meds & Active Scripts Active Ferrous Sulfate 325 Mg (65 Mg Iron) Tablet 325 Mg PO BIDPC Valium (Diazepam) 5 Mg Tab 5 Mg PO Q8HR PRN Prednisone 20 Mg Tab 40 Mg PO DAILY Take 40mg (2 tabs) daily x7 days, then 20mg (1 tab) daily x7 days, then 10mg (1/2 tab) daily x7days, then stop. Oxycodone (Oxycodone HCl) 5 Mg Cap 15 Mg PO Q6H PRN Potassium Chloride ER (Potassium Chloride) 20 Meq Tab 40 Meq PO TID K-Phos (Potassium Phosphate Monobasic) 500 Mg Tab 1,000 Mg PO BID Pantoprazole (Pantoprazole Sodium) 40 Mg Tab 40 Mg PO HS Vitamin D3 (Cholecalciferol) 10,000 Unit Cap 20,000 Units PO Q3D @ HS Reported Magnesium Oxide 400 Mg Tab 400 Mg PO DAILY Review of Systems Except as stated in HPI: all other systems reviewed are Neg Physical Exam Narrative GENERAL: Well-developed middle age white female patient currently in mild distress. Awake and oriented 3. SKIN: Focused skin assessment warm/dry. HEAD: Atraumatic. Normocephalic. EYES: Pupils equal and round. No scleral icterus. No injection or drainage. ENT: No nasal bleeding or discharge. Mucous membranes pink and moist. NECK: Trachea midline. No JVD. CARDIOVASCULAR: Regular rate and rhythm. No murmur appreciated. RESPIRATORY: No accessory muscle use. Clear to auscultation. Breath sounds equal bilaterally. GASTROINTESTINAL: Abdomen soft, non-tender, nondistended. Hepatic and splenic margins not palpable. MUSCULOSKELETAL: No obvious deformities. No clubbing. No cyanosis. +1 bilateral pretibial edema which is nonpitting, mild erythema, nontender. NEUROLOGICAL: Awake and alert. No obvious cranial nerve deficits. Motor grossly within normal limits. Normal speech. PSYCHIATRIC: Appropriate mood and affect; insight and judgment normal. Data Data Last Documented VS Vital Signs Date Time Temp Pulse Resp B/P Pulse Ox O2 Delivery O2 Flow Rate FiO2 06/18/17 11:26 97.8 83 17 137/74 99 Room Air Orders Complete Blood Count With Diff (06/18/17 10:07) Comprehensive Metabolic Panel (06/18/17 10:07) Prothrombin Time / Inr (Pt) (06/18/17 10:07) Act Partial Throm Time (Ptt) (06/18/17 10:07) Us Leg Venous Doppler Bilat (06/18/17 10:07) Magnesium (Mg) (06/18/17 10:07) Ns + Kcl 20 Meq Inj (Ns + Kcl 20 Meq Inj (06/18/17 11:00) Electrocardiogram (06/18/17 10:05) Labs Laboratory Tests Test 06/18/17 10:10 White Blood Count 7.3 TH/MM3 Red Blood Count 3.43 MIL/MM3 Hemoglobin 9.8 GM/DL Hematocrit 30.3 % Mean Corpuscular Volume 88.2 FL Mean Corpuscular Hemoglobin 28.5 PG Mean Corpuscular Hemoglobin 32.3 % Concent Red Cell Distribution Width 15.9 % Platelet Count 516 TH/MM3 Mean Platelet Volume 6.2 FL Neutrophils (%) (Auto) 67.6 % Lymphocytes (%) (Auto) 20.1 % Monocytes (%) (Auto) 8.8 % Eosinophils (%) (Auto) 2.7 % Basophils (%) (Auto) 0.8 % Neutrophils # (Auto) 4.9 TH/MM3 Lymphocytes # (Auto) 1.5 TH/MM3 Monocytes # (Auto) 0.6 TH/MM3 Eosinophils # (Auto) 0.2 TH/MM3 Basophils # (Auto) 0.1 TH/MM3 CBC Comment DIFF FINAL Differential Comment Prothrombin Time 10.5 SEC Prothromb Time International 1.0 RATIO Ratio Activated Partial 28.5 SEC Thromboplast Time Sodium Level 142 MEQ/L Potassium Level 2.5 MEQ/L Chloride Level 106 MEQ/L Carbon Dioxide Level 27.4 MEQ/L Anion Gap 9 MEQ/L Blood Urea Nitrogen 19 MG/DL Creatinine 1.54 MG/DL Estimat Glomerular Filtration 37 ML/MIN Rate Random Glucose 155 MG/DL Calcium Level 8.2 MG/DL Magnesium Level 1.8 MG/DL Total Bilirubin LESS THAN 0.1 MG/DL Aspartate Amino Transf 8 U/L (AST/SGOT) Alanine Aminotransferase 16 U/L (ALT/SGPT) Alkaline Phosphatase 58 U/L Total Protein 6.0 GM/DL Albumin 2.9 GM/DL MDM Medical Decision Making Medical Screen Exam Complete: Yes Emergency Medical Condition: Yes Medical Record Reviewed: Yes Interpretation(s) Laboratory Tests Test 06/18/17 10:10 Red Blood Count 3.43 MIL/MM3 (4.00-5.30) Hemoglobin 9.8 GM/DL (11.6-15.3) Hematocrit 30.3 % (35.0-46.0) Platelet Count 516 TH/MM3 (150-450) Mean Platelet Volume 6.2 FL (7.0-11.0) Monocytes (%) (Auto) 8.8 % (0.0-8.0) Potassium Level 2.5 MEQ/L (3.5-5.1) Blood Urea Nitrogen 19 MG/DL (7-18) Creatinine 1.54 MG/DL (0.50-1.00) Estimat Glomerular Filtration 37 ML/MIN (>89) Rate Random Glucose 155 MG/DL (74-106) Calcium Level 8.2 MG/DL (8.5-10.1) Total Bilirubin LESS THAN 0.1 MG/DL (0.2-1.0) Aspartate Amino Transf 8 U/L (15-37) (AST/SGOT) Total Protein 6.0 GM/DL (6.4-8.2) Albumin 2.9 GM/DL (3.4-5.0) Last 24 hours Impressions Lower Extremity Ultrasound 06/18/17 1007 Signed Impressions: Service Date/Time: Sunday, June 18, 2017 10:51 - CONCLUSION: Negative exam with no evidence of deep venous thrombosis. Kane Tejeda MD Differential Diagnosis Leg edemadependent leg edema versus DVT versus cellulitis versus steroid side effects Narrative Course Lab work shows a low potassium at 2.5 which I suspect is chronic. Patient is on by mouth potassium. She was given IV KCl in the ER. At this point, after IV replenishment, suspect that she can continue by mouth replenishment with follow-up to primary care physician regarding this issue. Patient's ultrasound did not show any signs of DVT. I do not see overt signs of significant cellulitis. This appears to be more of a chronic issue since she's been here in the past for similar symptoms as well. My plan would be to release the patient with symptomatic relief or pain which she is requesting. Follow-up with primary care physician. Return for worsening in symptoms as needed. The plan has been discussed with her and she states understanding. Diagnosis Primary Impression: Leg edema Med/Other Pt SpecificInfo: Prescription(s) given Scripts Tramadol 50 Mg Tab50 Mg PO Q6H PRN (PAIN) #7 TAB Ref 0 Prov:Tarun Nevarez MD 06/18/17 Disposition: 01 DISCHARGE HOME Condition: Stable Tarun Nevarez MD Jun 18, 2017 10:11
[2017-06-18 10:26] LABS: AUTOMATED NEUTROPHIL # 4.9 TH/MM3 (1.8-7.7); BASOPHIL # 0.1 TH/MM3 (0-0.2); BASOPHIL % 0.8 % (0.0-2.0); EOSINOPHIL # 0.2 TH/MM3 (0-0.4); EOSINOPHIL % 2.7 % (0.0-4.0); HEMATOCRIT 30.3 % (35.0-46.0); HEMO FLAGS DIFF FINAL; LYMPH % 20.1 % (9.0-44.0); LYMPHOCYTE # 1.5 TH/MM3 (1.0-4.8); MEAN CELL VOLUME 88.2 FL (80.0-100.0); MEAN CORPUSCULAR HEMOGLOBIN 28.5 PG (27.0-34.0); MEAN CORPUSCULAR HGB CONC 32.3 % (32.0-36.0); MONO % 8.8 % (0.0-8.0); NEUT % 67.6 % (16.0-70.0); PLATELET COUNT 516 TH/MM3 (150-450); RED BLOOD COUNT 3.43 MIL/MM3 (4.00-5.30); RED CELL DISTRIBUTION WIDTH 15.9 % (11.6-17.2); WHITE BLOOD COUNT 7.3 TH/MM3 (4.0-11.0)
[2017-06-18 10:38] LABS: APTT (PATIENT) 28.5 SEC (24.3-30.1); PROTHROMBIN TIME - PATIENT 10.5 SEC (9.8-11.6)
[2017-06-18 10:50] LABS: ALKALINE PHOSPHATASE 58 U/L (45-117); ALT (GPT) 16 U/L (10-53); ANION GAP 9 MEQ/L (5-15); AST (GOT) 8 U/L (15-37); BICARBONATE 27.4 MEQ/L (21.0-32.0); BLOOD UREA NITROGEN 19 MG/DL (7-18); CHLORIDE 106 MEQ/L (98-107); GLOMERULAR FILTRATION RATE 37 ML/MIN (>89); MAGNESIUM 1.8 MG/DL (1.5-2.5); SODIUM (NA) 142 MEQ/L (136-145); TOTAL BILIRUBIN ADULT LESS THAN 0.1 MG/DL (0.2-1.0)
[2017-06-18 10:53] LABS: POTASSIUM 2.5 MEQ/L (3.5-5.1)
[2017-06-18] MEDS ORDERED: NS + KCL 20 MEQ INJ 1,000 ML IV ONE (11:00)
[2017-06-18 11:26] VITALS: BP 137/74; PULSE 83; RESP 17; TEMP 97.8; O2SAT 99
--- NOTE | 2017-06-18 11:30 | RADRPT ---
EXAM DATE/TIME: 06/18/2017 10:51 [facility] COMPARISON: US LEG BILATERAL VENOUS DOPPLER, June 05, 2017, 11:51. INDICATIONS : Bilateral leg pain. MEDICAL HISTORY : Gastroesophageal reflux disease. Seizures. Dizziness. Syncope. Headache. Migraine. Numbness. Tachycar annie. Pnemonia. Ulcer. Ovarian cysts. Ectopic . Kidney stones. Endometriosis. Cancer. SURGICAL HISTORY : Appendectomy. Abscess removal. Multiple laparscopy. Partial oopherectomy and salpingectomy. ENCOUNTER: Subsequent ACUITY: 3 weeks PAIN SCORE: 7/10 LOCATION: Bilateral legs. TECHNIQUE: Venous ultrasound of the left and right leg was performed from the inguinal ligament to the proximal calf. Real-time, color Doppler and spectral tracing, compression and augmentation techniques were us ed. FINDINGS: RIGHT LEG: There is normal compressibility of the deep venous system from the inguinal region to the proximal ca lf. No echogenic clot is seen in the lumen of the common femoral, femoral, popliteal, and posterior tibial veins. There is a normal response of the venous system to proximal and distal augmentation an d respiration. LEFT LEG: There is normal compressibility of the deep venous system from the inguinal region to the proximal ca lf. No echogenic clot is seen in the lumen of the common femoral, femoral, popliteal, and posterior tibial veins. There is a normal response of the venous system to proximal and distal augmentation an d respiration. CONCLUSION: Negative exam with no evidence of deep venous thrombosis. Kane Tejeda MD on June 18, 2017 at 11:28 Board Certified Radiologist. This report was verified electronically.
[2017-06-18] MEDS ORDERED: TRAM50TA PO (11:51)
[2017-06-18] MEDS ORDERED: traMADol HCL 50 MG TAB PO ONE (12:00)
[2017-06-18 13:00] VITALS: BP 130/81; PULSE 76; RESP 16; TEMP 97.8; O2SAT 99
[2017-06-18 13:12] VITALS: RESP 16
[2017-06-18 15:47] VITALS: BP 128/78; TEMP 97.8
--- NOTE | 2017-06-19 16:41 | EKG ---
Date Performed: 06/18/2017 Time Performed: 10:05:41 PTAGE: 41 years EKG: Sinus rhythm NONSPECIFIC T-WAVE ABNORMALITY BORDERLINE ECG PREVIOUS TRACING 06/05/2017 11.58.59 Since previous tracing, no significant change noted DOCTOR: Misti Abrams Interpretating Date/Time 06/19/2017 16:40:27
--- NOTE | 2017-06-19 16:41 | EKG ---
Date Performed: 06/18/2017 Time Performed: 11:40:12 PTAGE: 41 years EKG: Sinus rhythm NORMAL ECG PREVIOUS TRACING : 06/05/2017 11.58 Since previous tracing, no significant change noted DOCTOR: Misti Abrams Interpretating Date/Time 06/19/2017 16:40:36
== END 2017-06-18 15:48 | disposition home or self-care (01) ==
LOC: NEPC 09:42
DX: R60.0 Localized edema (principal); M32.9 Systemic lupus erythematosus, unspecified; Z79.52 Long term (current) use of systemic steroids; Z79.899 Other long term (current) drug therapy
CPT/HCPCS: 80053; 83735; 85025; 85610; 85730; 93005; 93970; 96365; 99285; J1642; J3480

== ENCOUNTER 2017-06-29 21:19 | Emergency (ER) | payer OTHER ==
[~2017-06-29] VITALS: Ht 175.3 cm; Wt 58.0 kg
[~2017-06-29 21:19] MED LIST changes: -DIFL100T PO; -LACT PO; -MAGN400T2 PEG; +MAGN400T2 PO; -NYST1000 SWISH-SWAL; -POLY17S G-TUBE; -SUCR1S PEG; +TRAM50TA PO
[2017-06-29 21:27] VITALS: BP 148/79; PULSE 95; RESP 20; O2SAT 100
[2017-06-29] MEDS ORDERED: SODIUM CHLOR 0.9% 1000 ML INJ 1,000 ML IV SCH (21:30)
[2017-06-29 21:31] VITALS: BP 148/79; PULSE 91; RESP 20; O2SAT 97
--- NOTE | 2017-06-29 21:41 | PD ---
HPI Chief Complaint: Chest Pain Time Seen by Provider: 21:28 Travel History International Travel<30 days: No Contact w/Intl Traveler<30days: No Traveled to known affect area: No History of Present Illness HPI 41-year-old female complains of chest pain and generalized malaise. Patient has history of lupus, gastroparesis, chronic recurrent hypokalemia, endometriosis, seizure, GI ulcers and chronic recurrent bilateral lower extremity pain and swelling. Patient started having generalized malaise for the past several days. Patient started having across anterior chest wall discomfort heaviness for the past 3 days. Patient states that the chest pain radiates to the neck area. Patient denies any palpitation nausea diaphoresis. Patient denies any headache. Patient denies any neck pain. Patient denies any shortness of breath. Patient denies abdominal pain. Patient denies any focal weakness or numbness of extremity. Patient states that she has history of atrial fibrillation in the past. 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) Cardiovascular Problems: Yes (HX OF AFIB) High Cholesterol: No Chemotherapy: No Chest Pain: No Congestive Heart Failure: No COPD: No Cerebrovascular Accident: No Diabetes: No Diminished Hearing: No Endocrine: Yes (HX ENDOMETRIOUSIS) Gastrointestinal Disorders: Yes GERD: Yes Genitourinary: Yes Headaches: Yes Hiatal Hernia: No Heparin Induced Thrombocytopen: No Hypertension: No Immune Disorder: No Implanted Vascular Access Dvce: No Kidney Stones: Yes Musculoskeletal: No Neurologic: Yes Psychiatric: Yes Reproductive: Yes Respiratory: No Immunizations Current: Yes Migraines: Yes Pneumonia: Yes Radiation Therapy: No Renal Failure: No Seizures: Yes (juvenile epilepsy) Sickle Cell Disease: No Sleep Apnea: No Thyroid Disease: No Ulcer: Yes (Pt states she has severe ulcers from throat to rectum) PNEUMOCCOCAL Vaccine (Year): 3 ?: Not LMP: CURRENT : 2 Para: 1 Miscarriage: 1 : 0 Ectopic : Yes (AT 17 YEARS OF AGE) Ovarian Cysts: Yes Past Surgical History Abdominal Surgery: Yes (multiple Laps) AICD: No Appendectomy: Yes Arteriovenous Shunt: No Cardiac Surgery: No Ear Surgery: No Endocrine Surgery: Yes Eye Surgery: No Genitourinary Surgery: Yes (Interstitial cystitis) Gynecologic Surgery: Yes Hysterectomy: Yes (PARTIAL) Insulin Pump: No Joint Replacement: No Neurologic Surgery: No Oral Surgery: Yes (Removal of abscess) Pacemaker: No Thoracic Surgery: No Other Surgery: Yes (endometriosis, ovarian cyst,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,appendectomy, cervix partial re) Social History Alcohol Use: No (PT DENIES ) Tobacco Use: No Substance Use: No (PT DENIES) Allergies-Medications (Allergen,Severity, Reaction): Coded Allergies: Fish Containing Products (Unverified Allergy, Severe, SWELLING IN THROAT, SOB, 06/29/17) cephalexin (Unverified Allergy, Severe, RASH,SWELLING, 06/29/17) ketorolac (Unverified Allergy, Severe, RASH, 06/29/17) penicillin G (Unverified Allergy, Severe, RASH,SWELLING, 06/29/17) prochlorperazine (Unverified Allergy, Mild, DYSTONIC REACTION, 06/29/17) promethazine (Unverified Allergy, Mild, DYSTONIC REACTION, 06/29/17) gabapentin (Unverified Adverse Reaction, Severe, SEIZURES, 06/29/17) *MDRO Multi-Drug Resistant Organism (Verified Adverse Reaction, Unknown, Cleared - 04/21/16, 06/29/17) MRSA axilla/ breast 2009 MRSA PCR (nares) negative - 04/19/16 & 04/21/16 Cleared per Infection Control Reported Meds & Prescriptions Reported Meds & Active Scripts Active Tramadol (Tramadol HCl) 50 Mg Tab 50 Mg PO Q6H PRN Ferrous Sulfate 325 Mg (65 Mg Iron) Tablet 325 Mg PO BIDPC Valium (Diazepam) 5 Mg Tab 5 Mg PO Q8HR PRN Prednisone 20 Mg Tab 40 Mg PO DAILY Take 40mg (2 tabs) daily x7 days, then 20mg (1 tab) daily x7 days, then 10mg (1/2 tab) daily x7days, then stop. Oxycodone (Oxycodone HCl) 5 Mg Cap 15 Mg PO Q6H PRN Potassium Chloride ER (Potassium Chloride) 20 Meq Tab 40 Meq PO TID K-Phos (Potassium Phosphate Monobasic) 500 Mg Tab 1,000 Mg PO BID Pantoprazole (Pantoprazole Sodium) 40 Mg Tab 40 Mg PO HS Vitamin D3 (Cholecalciferol) 10,000 Unit Cap 20,000 Units PO Q3D @ HS Reported Magnesium Oxide 400 Mg Tab 400 Mg PO DAILY Review of Systems General / Constitutional: No: Fever Eyes: No: Visual changes HENT: No: Headaches Cardiovascular: Positive: Chest Pain or Discomfort Respiratory: No: Shortness of Breath Gastrointestinal: No: Abdominal Pain Genitourinary: No: Dysuria Musculoskeletal: No: Pain Skin: No Rash Neurologic: No: Weakness Psychiatric: No: Depression Endocrine: No: Polydipsia Hematologic/Lymphatic: No: Easy Bruising Physical Exam Narrative GENERAL: Well-nourished, well-developed patient. SKIN: Focused skin assessment warm/dry. HEAD: Normocephalic. EYES: No scleral icterus. No injection or drainage. NECK: Supple, trachea midline. No JVD or lymphadenopathy. CARDIOVASCULAR: Regular rate and rhythm without murmurs, gallops, or rubs. RESPIRATORY: Breath sounds equal bilaterally. No accessory muscle use. GASTROINTESTINAL: Abdomen soft, non-tender, nondistended. MUSCULOSKELETAL: No cyanosis, or edema. BACK: Nontender without obvious deformity. No CVA tenderness. Neurologic exam normal. Data Data Last Documented VS Vital Signs Date Time Temp Pulse Resp B/P (MAP) Pulse Ox O2 Delivery O2 Flow Rate FiO2 06/29/17 21:36 86 18 97 Room Air 06/29/17 21:31 148/79 (102) Orders Orders Electrocardiogram (06/29/17 21:30) Complete Blood Count With Diff (06/29/17 21:30) Comprehensive Metabolic Panel (06/29/17 21:30) Creatine Kinase (Cpk) (06/29/17 21:30) Troponin I (06/29/17 21:30) Prothrombin Time / Inr (Pt) (06/29/17 21:30) Act Partial Throm Time (Ptt) (06/29/17 21:30) Urinalysis - C+S If Indicated (06/29/17 21:30) Magnesium (Mg) (06/29/17 21:30) Thyroid Stimulating Hormone (06/29/17 21:30) Phosphorus (Po4) (06/29/17 21:30) Chest, Single Ap (06/29/17 21:30) Iv Access Insert/Monitor (06/29/17 21:30) Ecg Monitoring (06/29/17 21:30) Oximetry (06/29/17 21:30) Sodium Chlor 0.9% 1000 Ml Inj (Ns 1000 M (06/29/17 21:30) Labs Laboratory Tests Test 06/29/17 23:06 White Blood Count 9.9 TH/MM3 Red Blood Count 4.05 MIL/MM3 Hemoglobin 11.6 GM/DL Hematocrit 36.3 % Mean Corpuscular Volume 89.6 FL Mean Corpuscular Hemoglobin 28.7 PG Mean Corpuscular Hemoglobin Concent 32.0 % Red Cell Distribution Width 16.1 % Platelet Count 161 TH/MM3 Mean Platelet Volume 7.9 FL Neutrophils (%) (Auto) 77.1 % Lymphocytes (%) (Auto) 13.4 % Monocytes (%) (Auto) 8.1 % Eosinophils (%) (Auto) 0.3 % Basophils (%) (Auto) 1.1 % Neutrophils # (Auto) 7.6 TH/MM3 Lymphocytes # (Auto) 1.3 TH/MM3 Monocytes # (Auto) 0.8 TH/MM3 Eosinophils # (Auto) 0.0 TH/MM3 Basophils # (Auto) 0.1 TH/MM3 CBC Comment AUTO DIFF Prothrombin Time 10.9 SEC Prothromb Time International Ratio 1.0 RATIO Activated Partial Thromboplast Time 19.6 SEC Urine Color YELLOW Urine Turbidity HAZY Urine pH 6.0 Urine Specific [place] 1.022 Urine Protein 30 mg/dL Urine Glucose (UA) NEG mg/dL Urine Ketones NEG mg/dL Urine Occult Blood SMALL Urine Nitrite NEG Urine Bilirubin NEG Urine Urobilinogen LESS THAN 2.0 MG/DL Urine Leukocyte Esterase NEG Urine RBC LESS THAN 1 /hpf Urine WBC 7 /hpf Urine Squamous Epithelial Cells 9 /hpf Urine Bacteria RARE /hpf Urine Hyaline Casts 44 /lpf Urine Mucus FEW /lpf Microscopic Urinalysis Comment CULT NOT INDICATED Blood Urea Nitrogen 19 MG/DL Creatinine 1.44 MG/DL Random Glucose 106 MG/DL Total Protein 6.9 GM/DL Albumin 3.7 GM/DL Calcium Level 8.7 MG/DL Phosphorus Level 4.0 MG/DL Magnesium Level 2.2 MG/DL Alkaline Phosphatase 61 U/L Aspartate Amino Transf (AST/SGOT) 16 U/L Alanine Aminotransferase (ALT/SGPT) 12 U/L Total Bilirubin 0.2 MG/DL Sodium Level 141 MEQ/L Potassium Level 4.5 MEQ/L Chloride Level 105 MEQ/L Carbon Dioxide Level 28.9 MEQ/L Anion Gap 7 MEQ/L Estimat Glomerular Filtration Rate 40 ML/MIN Total Creatine Kinase 99 U/L Troponin I LESS THAN 0.02 NG/ML Thyroid Stimulating Hormone 3rd Gen 1.710 uIU/ML [facility] Medical Decision Making Medical Screen Exam Complete: Yes Emergency Medical Condition: Yes Interpretation(s) Last Impressions Chest X-Ray 06/29/17 2130 Signed Impressions: Service Date/Time: June 21:41 - CONCLUSION: No acute cardiopulmonary abnormality is identified. Brian Zhou MD 12:15 AM. CBC within normal limit. CMP within normal limits. BUN 19. Creatinine 1.44. Cardiac enzymes are normal. UA positive for WBC rare bacteria. Differential Diagnosis Differential diagnosis including chest wall pain, angina, MA, PE, pneumothorax, electrolyte abnormality. Narrative Course 41-year-old female with chest pain and generalized malaise. History of hypokalemia. Diagnosis Primary Impression: Atypical chest pain Additional Impression: UTI (urinary tract infection) Qualified Codes: N30.00 - Acute cystitis without hematuria Patient Instructions: General Instructions Additional Instructions: Bactrim DS as directed. Follow-up with local physician. Return if worse. Return immediately if increasing chest pain shortness of breath. Med/Other Pt SpecificInfo: Prescription(s) given Scripts Sulfamethoxazole-Trimethoprim (Bactrim DS) 800-160 Mg Tab 1 TAB PO BID for Infection, #6 TAB 0 Refills Prov: Mlaik Nowak MD 06/30/17 Disposition: 01 DISCHARGE HOME Condition: Stable Malik Nowak MD Jun 29, 2017 21:41
--- NOTE | 2017-06-29 21:49 | RADRPT ---
EXAM DATE/TIME: 06/29/2017 21:41 [facility] COMPARISON: CHEST SINGLE AP, May 19, 2017, 17:40. INDICATIONS : Chest pain MEDICAL HISTORY : Hypercholesterolemia. SURGICAL HISTORY : Infusaport ENCOUNTER: Initial ACUITY: 2 weeks PAIN SCORE: 2/10 LOCATION: chest FINDINGS: Portable AP view of the chest demonstrates a normal-sized cardiac silhouette. No effusion, consolidat ion, or pneumothorax is visualized. The bones and soft tissues demonstrate no acute abnormality. Lung s are underinflated and right chest wall [id number] is present. CONCLUSION: No acute cardiopulmonary abnormality is identified. Brian hZou MD on June 29, 2017 at 21:47 Board Certified Radiologist. This report was verified electronically.
[2017-06-29 23:48] LABS: AUTOMATED NEUTROPHIL # 7.6 TH/MM3 (1.8-7.7); BASOPHIL # 0.1 TH/MM3 (0-0.2); BASOPHIL % 1.1 % (0.0-2.0); EOSINOPHIL % 0.3 % (0.0-4.0); HEMATOCRIT 36.3 % (35.0-46.0); LYMPH % 13.4 % (9.0-44.0); LYMPHOCYTE # 1.3 TH/MM3 (1.0-4.8); MEAN CELL VOLUME 89.6 FL (80.0-100.0); MEAN CORPUSCULAR HEMOGLOBIN 28.7 PG (27.0-34.0); MONO % 8.1 % (0.0-8.0); NEUT % 77.1 % (16.0-70.0); PLATELET COUNT 161 TH/MM3 (150-450); RED BLOOD COUNT 4.05 MIL/MM3 (4.00-5.30); RED CELL DISTRIBUTION WIDTH 16.1 % (11.6-17.2); WHITE BLOOD COUNT 9.9 TH/MM3 (4.0-11.0)
[2017-06-29 23:50] LABS: HEMO FLAGS AUTO DIFF
[2017-06-29 23:52] LABS: BACTERIA, URINE RARE /hpf; BLOOD, URINE SMALL (NEG); COMMENT (UR) CULT NOT INDICATED; CULTURE IF INDICATED CULT NOT INDICATED; GLUCOSE,URINE NEG (NEG); HYALINE CAST, URINE 44 /lpf (RARE); KETONE, URINE NEG (NEG); MUCUS URINE FEW /lpf (OCC); NITRITE,URINE NEG (NEG); SQUAMOUS EPITHELIAL CELL URINE 9 /hpf (0-5); URINE COLOR YELLOW (YELLW/STRAW)
[2017-06-29 23:56] LABS: APTT (PATIENT) 19.6 SEC (24.3-30.1); PROTHROMBIN TIME - PATIENT 10.9 SEC (9.8-11.6)
[2017-06-29 23:58] LABS: ALT (GPT) 12 U/L (10-53); ANION GAP 7 MEQ/L (5-15); AST (GOT) 16 U/L (15-37); BICARBONATE 28.9 MEQ/L (21.0-32.0); BLOOD UREA NITROGEN 19 MG/DL (7-18); CHLORIDE 105 MEQ/L (98-107); GLOMERULAR FILTRATION RATE 40 ML/MIN (>89); MAGNESIUM 2.2 MG/DL (1.5-2.5); POTASSIUM 4.5 MEQ/L (3.5-5.1); SODIUM (NA) 141 MEQ/L (136-145)
[2017-06-30 00:07] LABS: ALKALINE PHOSPHATASE 61 U/L (45-117); TOTAL BILIRUBIN ADULT 0.2 MG/DL (0.2-1.0)
[2017-06-30 00:10] LABS: CREATINE KINASE 99 U/L (26-192)
[2017-06-30] MEDS ORDERED: BACT800T5 PO (00:22)
[2017-06-30] MEDS ORDERED: SULFAMETHOXAZOLE-TRIMETHOPRIM DS 800-160 MG TAB PO ONE (00:30)
[2017-06-30 00:44] LABS: PLATELET ESTIMATE SMEAR NORMAL (NORMAL); PLATELET MORPHOLOGY NORMAL (NORMAL); SCAN/DIFF AUTO DIFF CONFIRMED
--- NOTE | 2017-06-30 11:41 | EKG ---
Date Performed: 06/29/2017 Time Performed: 21:34:59 PTAGE: 41 years EKG: Supraventricular rhythm, etiology indeterminate due to baseline wandering artifact INTRAVEN TRICULAR CONDUCTION DELAY ABNORMAL ECG PREVIOUS TRACING : 06/18/2017 11.40 DOCTOR: Cornelio Levy Interpretating Date/Time 06/30/2017 11:39:54
== END 2017-06-30 01:14 | disposition home or self-care (01) ==
LOC: NEPE 21:19
DX: R07.89 Other chest pain (principal); N39.0 Urinary tract infection, site not specified; M32.9 Systemic lupus erythematosus, unspecified; K21.9 Gastro-esophageal reflux disease without esophagitis
CPT/HCPCS: 71010; 80053; 81001; 82550; 83735; 84100; 84443; 84484; 85025; 85610; 85730; 93005; 96360; 99285; J7030

== ENCOUNTER 2017-07-28 16:29 | Emergency (ER) | payer OTHER ==
[~2017-07-28] VITALS: Ht 175.3 cm; Wt 60.0 kg
[~2017-07-28 16:29] MED LIST changes: +BACT800T5 PO
[2017-07-28 16:31] VITALS: BP 170/100; PULSE 89; RESP 12; TEMP 98.7; O2SAT 98
--- NOTE | 2017-07-28 16:38 | PD ---
Physical Exam Time Seen by Provider: 16:36 Narrative 41-year-old female sent by her primary care provider for potassium recheck. She has history of SLE, nephritis, and hypokalemia. Her potassium level was 2.9 yesterday. She has been taking oral potassium, but says her body doesn't absorb it. Reports chest tightness. Denies short of breath. Says she feels like she is having a panic attack, but is not. Patient seen in triage. Vital signs reviewed. Patient awaiting bed placement. Data Data Last Documented VS Vital Signs Date Time Temp Pulse Resp B/P (MAP) Pulse Ox O2 Delivery O2 Flow Rate FiO2 07/28/17 16:31 98.7 89 12 170/100 (123) 98 MDM Supervised Visit with ARY: Alem Padilla Jul 28, 2017 16:38
[2017-07-28 18:26] LABS: AUTOMATED NEUTROPHIL # 5.4 TH/MM3 (1.8-7.7); BASOPHIL % 0.4 % (0.0-2.0); EOSINOPHIL % 0.2 % (0.0-4.0); HEMATOCRIT 30.2 % (35.0-46.0); HEMO FLAGS DIFF FINAL; LYMPH % 7.7 % (9.0-44.0); LYMPHOCYTE # 0.5 TH/MM3 (1.0-4.8); MEAN CELL VOLUME 87.9 FL (80.0-100.0); MEAN CORPUSCULAR HEMOGLOBIN 29.8 PG (27.0-34.0); MEAN CORPUSCULAR HGB CONC 33.9 % (32.0-36.0); MONO % 4.2 % (0.0-8.0); NEUT % 87.5 % (16.0-70.0); PLATELET COUNT 170 TH/MM3 (150-450); RED BLOOD COUNT 3.44 MIL/MM3 (4.00-5.30); RED CELL DISTRIBUTION WIDTH 16.1 % (11.6-17.2); WHITE BLOOD COUNT 6.2 TH/MM3 (4.0-11.0)
--- NOTE | 2017-07-28 18:30 | PD ---
HPI Chief Complaint: Abnormal Results Time Seen by Provider: 17:45 Travel History International Travel<30 days: No Contact w/Intl Traveler<30days: No Traveled to known affect area: No History of Present Illness HPI 41 YO F with PMH of SLE, gastroparesis presents to the ED for evaluation after low potassium level in outpatient labs. She states that she's been feeling anxious with palpitations, shortness of breath and weakness of the neck. She endorses oral potassium but states that "it doesn't absorb for some reason." She states that she is being referred to [facility] for further evaluation. She is followed by Dr. Gilbert. 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) Cardiovascular Problems: Yes (HX OF AFIB) High Cholesterol: No Chemotherapy: No Chest Pain: No Congestive Heart Failure: No COPD: No Cerebrovascular Accident: No Diabetes: No Diminished Hearing: No Endocrine: Yes (HX ENDOMETRIOUSIS) Gastrointestinal Disorders: Yes GERD: Yes Genitourinary: Yes Headaches: Yes Hiatal Hernia: No Heparin Induced Thrombocytopen: No Hypertension: No Immune Disorder: No Implanted Vascular Access Dvce: No Kidney Stones: Yes Musculoskeletal: No Neurologic: Yes Psychiatric: Yes Reproductive: Yes Respiratory: No Immunizations Current: Yes Migraines: Yes Pneumonia: Yes Radiation Therapy: No Renal Failure: No Seizures: Yes (juvenile epilepsy) Sickle Cell Disease: No Sleep Apnea: No Thyroid Disease: No Ulcer: Yes (Pt states she has severe ulcers from throat to rectum) PNEUMOCCOCAL Vaccine (Year): 3 ?: Not : 2 Para: 1 Miscarriage: 1 : 0 Ectopic : Yes (AT 17 YEARS OF AGE) Ovarian Cysts: Yes Past Surgical History Abdominal Surgery: Yes (multiple Laps) AICD: No Appendectomy: Yes Arteriovenous Shunt: No Cardiac Surgery: No Ear Surgery: No Endocrine Surgery: Yes Eye Surgery: No Genitourinary Surgery: Yes (Interstitial cystitis) Gynecologic Surgery: Yes Hysterectomy: Yes (PARTIAL) Insulin Pump: No Joint Replacement: No Neurologic Surgery: No Oral Surgery: Yes (Removal of abscess) Pacemaker: No Thoracic Surgery: No Other Surgery: Yes (endometriosis, ovarian cyst,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,appendectomy, cervix partial re) Social History Alcohol Use: No (PT DENIES ) Tobacco Use: No Substance Use: No (PT DENIES) Allergies-Medications (Allergen,Severity, Reaction): Coded Allergies: Fish Containing Products (Unverified Allergy, Severe, SWELLING IN THROAT, SOB, 07/28/17) cephalexin (Unverified Allergy, Severe, RASH,SWELLING, 07/28/17) ketorolac (Unverified Allergy, Severe, RASH, 07/28/17) penicillin G (Unverified Allergy, Severe, RASH,SWELLING, 07/28/17) prochlorperazine (Unverified Allergy, Mild, DYSTONIC REACTION, 07/28/17) promethazine (Unverified Allergy, Mild, DYSTONIC REACTION, 07/28/17) gabapentin (Unverified Adverse Reaction, Severe, SEIZURES, 07/28/17) *MDRO Multi-Drug Resistant Organism (Verified Adverse Reaction, Unknown, Cleared - 04/21/16, 07/28/17) MRSA axilla/ breast 2009 MRSA PCR (nares) negative - 04/19/16 & 04/21/16 Cleared per Infection Control Reported Meds & Prescriptions Reported Meds & Active Scripts Active Bactrim DS (Sulfamethoxazole-Trimethoprim) 800-160 Mg Tab 1 Tab PO BID Tramadol (Tramadol HCl) 50 Mg Tab 50 Mg PO Q6H PRN Ferrous Sulfate 325 Mg (65 Mg Iron) Tablet 325 Mg PO BIDPC Valium (Diazepam) 5 Mg Tab 5 Mg PO Q8HR PRN Prednisone 20 Mg Tab 40 Mg PO DAILY Take 40mg (2 tabs) daily x7 days, then 20mg (1 tab) daily x7 days, then 10mg (1/2 tab) daily x7days, then stop. Oxycodone (Oxycodone HCl) 5 Mg Cap 15 Mg PO Q6H PRN Potassium Chloride ER (Potassium Chloride) 20 Meq Tab 40 Meq PO TID K-Phos (Potassium Phosphate Monobasic) 500 Mg Tab 1,000 Mg PO BID Pantoprazole (Pantoprazole Sodium) 40 Mg Tab 40 Mg PO HS Vitamin D3 (Cholecalciferol) 10,000 Unit Cap 20,000 Units PO Q3D @ HS Reported Magnesium Oxide 400 Mg Tab 400 Mg PO DAILY Review of Systems Except as stated in HPI: all other systems reviewed are Neg Physical Exam Narrative GENERAL: Well-nourished, well-developed anxious white female in no acute distress. SKIN: Focused skin assessment warm/dry. HEAD: Normocephalic. EYES: No scleral icterus. No injection or drainage. NECK: Supple, trachea midline. No JVD or lymphadenopathy. CARDIOVASCULAR: Regular rate and rhythm without murmurs, gallops, or rubs. CHEST: Nontender throughout without deformity or crepitus. RESPIRATORY: Breath sounds clear and equal bilaterally. No accessory muscle use. GASTROINTESTINAL: Abdomen soft, non-tender, nondistended. Active bowel sounds. MUSCULOSKELETAL: No cyanosis, or edema. Patient moves extremities spontaneously. She is noted to walk with a slight limp. NEUROLOGICAL: Awake and alert. Cranial nerves II through XII intact. Motor and sensory grossly within normal limits. Five out of 5 muscle strength in all muscle groups. Normal speech. BACK: Nontender without obvious deformity. No CVA tenderness. Data Data Last Documented VS Vital Signs Date Time Temp Pulse Resp B/P (MAP) Pulse Ox O2 Delivery O2 Flow Rate FiO2 07/28/17 21:39 07/28/17 21:00 72 18 98 Room Air 07/28/17 16:31 98.7 Orders Orders Complete Blood Count With Diff (07/28/17 16:38) Basic Metabolic Panel (Bmp) (07/28/17 16:38) Electrocardiogram (07/28/17 16:38) Potassium Chlor 20 Meq Premix (Kcl 20 Me (07/28/17 19:30) Potassium Chloride (Kcl) (07/28/17 20:45) Heparin Central Flush (Heparin Central F (07/28/17 21:15) Sodium Chloride 0.9% Flush (Ns Flush) (07/28/17 21:15) Heparin Central Flush (Heparin Central F (07/28/17 21:15) Labs Laboratory Tests Test 07/28/17 18:06 White Blood Count 6.2 TH/MM3 Red Blood Count 3.44 MIL/MM3 Hemoglobin 10.3 GM/DL Hematocrit 30.2 % Mean Corpuscular Volume 87.9 FL Mean Corpuscular Hemoglobin 29.8 PG Mean Corpuscular Hemoglobin Concent 33.9 % Red Cell Distribution Width 16.1 % Platelet Count 170 TH/MM3 Mean Platelet Volume 7.6 FL Neutrophils (%) (Auto) 87.5 % Lymphocytes (%) (Auto) 7.7 % Monocytes (%) (Auto) 4.2 % Eosinophils (%) (Auto) 0.2 % Basophils (%) (Auto) 0.4 % Neutrophils # (Auto) 5.4 TH/MM3 Lymphocytes # (Auto) 0.5 TH/MM3 Monocytes # (Auto) 0.3 TH/MM3 Eosinophils # (Auto) 0.0 TH/MM3 Basophils # (Auto) 0.0 TH/MM3 CBC Comment DIFF FINAL Differential Comment Blood Urea Nitrogen 15 MG/DL Creatinine 1.21 MG/DL Random Glucose 139 MG/DL Calcium Level 9.5 MG/DL Sodium Level 137 MEQ/L Potassium Level 3.0 MEQ/L Chloride Level 102 MEQ/L Carbon Dioxide Level 26.1 MEQ/L Anion Gap 9 MEQ/L Estimat Glomerular Filtration Rate 49 ML/MIN MDM Medical Decision Making Medical Screen Exam Complete: Yes Emergency Medical Condition: Yes Differential Diagnosis hypokalemia versus dehydration versus noncompliance versus gastroparesis versus other Narrative Course 41 YO F with PMH of SLE, gastroparesis presents to the ED for evaluation after low potassium level in outpatient labs. She states that she's been feeling anxious with palpitations, shortness of breath and weakness of the neck. She endorses oral potassium but states that "it doesn't absorb for some reason." She states that she is being referred to [facility] for further evaluation. She is followed by Dr. Gilbert. Vitals reviewed. Physical exam reveals an anxious appearing white female in NAD. Chest CTA B. Breath sounds clear and equal bilaterally. Abdomen soft and tender. No CVA tenderness. No focal neuro deficits. I reviewed the patient's record and per discharge summary on the patient presented that time with nearly the same complaints. I also find that she's been diagnosed with anxiety with somatization in the past. She' s had an admission for cardiac workup this year. She's had evaluation by a wire frame lampshade maker with upper and lower studies performed this year. EKG rate 76, atrial ectopic rhythm. Normal intervals. Normal axis. No acute ST changes. Reviewed by . CBC: WBC 6.2. Hemoglobin 10.3. CMP: BUN 15, creatinine 1.21. Potassium 3.0. Calcium 9.5. Patient was administered 20 mEq KCl IV and 40 mEq KCl by mouth. She is instructed to follow-up with her primary care provider and Yani as planned. She is stable and discharged home. Diagnosis Primary Impression: Hypokalemia Referrals: Primary Care Physician Patient Instructions: General Instructions, Hypokalemia (ED) Additional Instructions: Rest, hydrate. Return to normal, gentle activities as tolerated. Continue at home medications as previously prescribed. Follow-up with the primary care provider and Yani as planned. Return to the ED for any urgent or emergent medical condition. Disposition: 01 DISCHARGE HOME Condition: Stable Luisa Romeo Jul 28, 2017 18:30
[2017-07-28 19:09] LABS: BICARBONATE 26.1 MEQ/L (21.0-32.0)
--- NOTE | 2017-07-28 19:26 | PD ---
Physical Exam Date Seen by Provider: Jul 28, 2017 Time Seen by Provider: 19:25 Narrative Accepted in transfer of care from Dr. Wick Data Data Last Documented VS Vital Signs Date Time Temp Pulse Resp B/P (MAP) Pulse Ox O2 Delivery O2 Flow Rate FiO2 07/28/17 21:39 07/28/17 21:00 72 18 98 Room Air 07/28/17 16:31 98.7 Orders Orders Complete Blood Count With Diff (07/28/17 16:38) Basic Metabolic Panel (Bmp) (07/28/17 16:38) Electrocardiogram (07/28/17 16:38) Potassium Chlor 20 Meq Premix (Kcl 20 Me (07/28/17 19:30) Potassium Chloride (Kcl) (07/28/17 20:45) Heparin Central Flush (Heparin Central F (07/28/17 21:15) Sodium Chloride 0.9% Flush (Ns Flush) (07/28/17 21:15) Heparin Central Flush (Heparin Central F (07/28/17 21:15) Labs Laboratory Tests Test 07/28/17 18:06 White Blood Count 6.2 TH/MM3 Red Blood Count 3.44 MIL/MM3 Hemoglobin 10.3 GM/DL Hematocrit 30.2 % Mean Corpuscular Volume 87.9 FL Mean Corpuscular Hemoglobin 29.8 PG Mean Corpuscular Hemoglobin Concent 33.9 % Red Cell Distribution Width 16.1 % Platelet Count 170 TH/MM3 Mean Platelet Volume 7.6 FL Neutrophils (%) (Auto) 87.5 % Lymphocytes (%) (Auto) 7.7 % Monocytes (%) (Auto) 4.2 % Eosinophils (%) (Auto) 0.2 % Basophils (%) (Auto) 0.4 % Neutrophils # (Auto) 5.4 TH/MM3 Lymphocytes # (Auto) 0.5 TH/MM3 Monocytes # (Auto) 0.3 TH/MM3 Eosinophils # (Auto) 0.0 TH/MM3 Basophils # (Auto) 0.0 TH/MM3 CBC Comment DIFF FINAL Differential Comment Blood Urea Nitrogen 15 MG/DL Creatinine 1.21 MG/DL Random Glucose 139 MG/DL Calcium Level 9.5 MG/DL Sodium Level 137 MEQ/L Potassium Level 3.0 MEQ/L Chloride Level 102 MEQ/L Carbon Dioxide Level 26.1 MEQ/L Anion Gap 9 MEQ/L Estimat Glomerular Filtration Rate 49 ML/MIN [facility] Medical Record Reviewed: Yes Supervised Visit with ARY: No Interpretation(s) CBC & BMP Diagram 07/28/17 18:06 Calcium Level 9.5 Differential Diagnosis Accepted in transfer of care from Dr. Wick, please refer to her dictation Narrative Course Accepted in transfer of care from Dr. Wick--follow up labs and disposition Diagnosis Primary Impression: Hypokalemia Referrals: Primary Care Physician Patient Instructions: General Instructions Additional Instruction: continue prescription and dietary potassium replacement Disposition: 01 DISCHARGE HOME Condition: Stable Geneva Carlisle MD Jul 28, 2017 19:26
[2017-07-28] MEDS ORDERED: POTASSIUM CHLOR 20 MEQ PREMIX 100 ML IV ONE (19:30)
[2017-07-28] MEDS ORDERED: POTASSIUM CHLORIDE 20 MEQ CONTROLLED RELEASE TAB PO ONE (20:45)
[2017-07-28 21:00] VITALS: BP 150/90; PULSE 72; RESP 18; O2SAT 98
[2017-07-28] MEDS ORDERED: SODIUM CHLORIDE 0.9% FLUSH 10 ML FLUSH IVF PRN (21:15)
[2017-07-29] MEDS ORDERED: DIAZ10 PO (00:56)
--- NOTE | 2017-07-29 16:36 | EKG ---
Date Performed: 07/28/2017 Time Performed: 17:41:46 PTAGE: 41 years EKG: ECTOPIC ATRIAL RHYTHM INTRAVENTRICULAR CONDUCTION DELAY ABNORMAL ECG PREVIOUS TRACING : 06/29/2017 21.34 Compared to prior tracing no significant change DOCTOR: Ross Caballero Interpretating Date/Time 07/29/2017 16:35:05
== END 2017-07-28 22:19 | disposition home or self-care (01) ==
LOC: NEPC 16:29
DX: E87.6 Hypokalemia (principal); R00.2 Palpitations; R06.02 Shortness of breath; R94.31 Abnormal electrocardiogram [ECG] [EKG]; M32.9 Systemic lupus erythematosus, unspecified; Z87.19 Personal history of other diseases of the digestive system; Z86.59 Personal history of other mental and behavioral disorders; Z86.79 Personal history of other diseases of the circulatory system; Z87.448 Personal history of other diseases of urinary system; Z86.69 Personal history of other diseases of the nervous system and sense organs
CPT/HCPCS: 80048; 85025; 93005; 96360; 96361; 99284; J1642; J3480

== ENCOUNTER 2017-07-29 00:18 | Observation (INO) | payer OTHER ==
[2017-07-29] VITALS (9 sets, daily range): BP systolic 110–153; BP diastolic 72–89; PULSE 72–80; RESP 16–20; TEMP 97.8–99.7; O2SAT 96–100
[~2017-07-29] VITALS: Ht 175.3 cm; Wt 60.0 kg
[2017-07-29] MEDS ORDERED: DIAZ10 PO (00:56)
[2017-07-29] MEDS ORDERED: SODIUM CHLORIDE 0.9% FLUSH 10 ML FLUSH IV FLUSH PRN ×2 (01:15→05:45)
[2017-07-29] MEDS: SODIUM CHLOR 0.9% 1000 ML INJ 1,000 ML IV SCH ×3 (01:28→16:16)
[2017-07-29 01:32] LABS: BASOPHIL % 0.7 % (0.0-2.0); EOSINOPHIL # 0.1 TH/MM3 (0-0.4); EOSINOPHIL % 0.9 % (0.0-4.0); HEMATOCRIT 28.6 % (35.0-46.0); HEMO FLAGS DIFF FINAL; LYMPHOCYTE # 0.9 TH/MM3 (1.0-4.8); MEAN CELL VOLUME 87.5 FL (80.0-100.0); MEAN CORPUSCULAR HEMOGLOBIN 30.2 PG (27.0-34.0); MEAN CORPUSCULAR HGB CONC 34.6 % (32.0-36.0); MONO % 8.8 % (0.0-8.0); NEUT % 75.6 % (16.0-70.0); PLATELET COUNT 165 TH/MM3 (150-450); RED BLOOD COUNT 3.27 MIL/MM3 (4.00-5.30); RED CELL DISTRIBUTION WIDTH 16.1 % (11.6-17.2); WHITE BLOOD COUNT 6.6 TH/MM3 (4.0-11.0)
[2017-07-29 01:45] LABS: BLOOD, URINE SMALL (NEG); COMMENT (UR) CULT NOT INDICATED; CULTURE IF INDICATED CULT NOT INDICATED; GLUCOSE,URINE NEG (NEG); KETONE, URINE NEG (NEG); MUCUS URINE FEW /lpf (OCC); NITRITE,URINE NEG (NEG); PH, URINE 6.5 (5.0-8.5); SQUAMOUS EPITHELIAL CELL URINE 4 /hpf (0-5); URINE COLOR YELLOW (YELLW/STRAW)
--- NOTE | 2017-07-29 01:50 | PD ---
HPI Chief Complaint: GI Complaint Time Seen by Provider: 01:02 Travel History International Travel<30 days: No Contact w/Intl Traveler<30days: No Traveled to known affect area: No History of Present Illness HPI 41-year-old female presents to the emergency department by private vehicle for complaint of abdominal pain red blood per rectum history of inflammatory bowel disease Crohn's disease and not feeling well since seen in the emergency department earlier in the evening for potassium replacement. Patient has chronic history of potassium loss and takes potassium was supplemented home was seen in the emergency department with a low potassium and received oral and IV potassium and was discharged to home. Patient states she's continued to feel poorly so returns for further evaluation. 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) Cardiovascular Problems: Yes (HX OF AFIB) High Cholesterol: No Chemotherapy: No Chest Pain: No Congestive Heart Failure: No COPD: No Cerebrovascular Accident: No Diabetes: No Diminished Hearing: No Endocrine: Yes (HX ENDOMETRIOUSIS) Gastrointestinal Disorders: Yes GERD: Yes Genitourinary: Yes Headaches: Yes Hiatal Hernia: No Heparin Induced Thrombocytopen: No Hypertension: No Immune Disorder: No Implanted Vascular Access Dvce: No Kidney Stones: Yes Musculoskeletal: No Neurologic: Yes Psychiatric: Yes Reproductive: Yes Respiratory: No Immunizations Current: Yes Migraines: Yes Pneumonia: Yes Radiation Therapy: No Renal Failure: No Seizures: Yes (juvenile epilepsy) Sickle Cell Disease: No Sleep Apnea: No Thyroid Disease: No Ulcer: Yes (Pt states she has severe ulcers from throat to rectum) PNEUMOCCOCAL Vaccine (Year): 3 ?: Not LMP: CURRENT : 2 Para: 1 Miscarriage: 1 : 0 Ectopic : Yes (AT 17 YEARS OF AGE) Ovarian Cysts: Yes Past Surgical History Abdominal Surgery: Yes (multiple Laps) AICD: No Appendectomy: Yes Arteriovenous Shunt: No Cardiac Surgery: No Ear Surgery: No Endocrine Surgery: Yes Eye Surgery: No Genitourinary Surgery: Yes (Interstitial cystitis) Gynecologic Surgery: Yes Hysterectomy: Yes (PARTIAL) Insulin Pump: No Joint Replacement: No Neurologic Surgery: No Oral Surgery: Yes (Removal of abscess) Pacemaker: No Thoracic Surgery: No Other Surgery: Yes (endometriosis, ovarian cyst,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,appendectomy, cervix partial re) Social History Alcohol Use: No (PT DENIES ) Tobacco Use: No Substance Use: No (PT DENIES) Allergies-Medications (Allergen,Severity, Reaction): Coded Allergies: Fish Containing Products (Unverified Allergy, Severe, SWELLING IN THROAT, SOB, 07/28/17) cephalexin (Unverified Allergy, Severe, RASH,SWELLING, 07/28/17) ketorolac (Unverified Allergy, Severe, RASH, 07/28/17) penicillin G (Unverified Allergy, Severe, RASH,SWELLING, 07/28/17) prochlorperazine (Unverified Allergy, Mild, DYSTONIC REACTION, 07/28/17) promethazine (Unverified Allergy, Mild, DYSTONIC REACTION, 07/28/17) gabapentin (Unverified Adverse Reaction, Severe, SEIZURES, 07/28/17) *MDRO Multi-Drug Resistant Organism (Verified Adverse Reaction, Unknown, Cleared - 04/21/16, 07/28/17) MRSA axilla/ breast 2008 MRSA PCR (nares) negative - 04/19/16 & 04/21/16 Cleared per Infection Control Reported Meds & Prescriptions Reported Meds & Active Scripts Active Tramadol (Tramadol HCl) 50 Mg Tab 50 Mg PO Q6H PRN Ferrous Sulfate 325 Mg (65 Mg Iron) Tablet 325 Mg PO BIDPC Prednisone 20 Mg Tab 40 Mg PO DAILY Take 40mg (2 tabs) daily x7 days, then 20mg (1 tab) daily x7 days, then 10mg (1/2 tab) daily x7days, then stop. Oxycodone (Oxycodone HCl) 5 Mg Cap 15 Mg PO Q6H PRN Potassium Chloride ER (Potassium Chloride) 20 Meq Tab 40 Meq PO TID K-Phos (Potassium Phosphate Monobasic) 500 Mg Tab 1,000 Mg PO BID Pantoprazole (Pantoprazole Sodium) 40 Mg Tab 40 Mg PO HS Vitamin D3 (Cholecalciferol) 10,000 Unit Cap 20,000 Units PO Q3D @ HS Reported Valium (Diazepam) 10 Mg Tab 10 Mg PO Q8HR PRN Magnesium Oxide 400 Mg Tab 400 Mg PO DAILY Review of Systems Except as stated in HPI: all other systems reviewed are Neg General / Constitutional: No: Fever, Chills HENT: No: Headaches, Congestion Cardiovascular: No: Chest Pain or Discomfort, Tachycardia Respiratory: No: Cough, Shortness of Breath Gastrointestinal: Positive: Nausea, Diarrhea, Abdominal Pain, Hematochezia, No : Vomiting Genitourinary: No: Dysuria Musculoskeletal: No: Myalgias, Arthralgias Skin: No Rash Neurologic: Positive: Weakness Psychiatric: No: Anxiety Hematologic/Lymphatic: No: Lymph Node Enlargement Physical Exam Narrative GENERAL: Thin ill-appearing female in no respiratory distress SKIN: Warm and dry. HEAD: Normocephalic. EYES: No scleral icterus. No injection or drainage. NECK: Supple, trachea midline. No JVD or lymphadenopathy. CARDIOVASCULAR: Regular rate and rhythm without murmurs, gallops, or rubs. RESPIRATORY: Breath sounds equal bilaterally. No accessory muscle use. GASTROINTESTINAL: Abdomen soft, non-tender, nondistended. Rectal exam: Normal sphincter tone scant bloody mucus on exam glove MUSCULOSKELETAL: No cyanosis, or edema. BACK: Nontender without obvious deformity. No CVA tenderness. Data Data Last Documented VS Vital Signs Date Time Temp Pulse Resp B/P (MAP) Pulse Ox O2 Delivery O2 Flow Rate FiO2 07/29/17 05:19 77 18 153/76 (101) 97 Room Air 07/29/17 02:52 98.4 Orders Orders Complete Blood Count With Diff (07/29/17 01:02) Comprehensive Metabolic Panel (07/29/17 01:02) Lipase (07/29/17 01:02) Lactic Acid (07/29/17 01:02) Prothrombin Time / Inr (Pt) (07/29/17 01:02) Act Partial Throm Time (Ptt) (07/29/17 01:02) Urinalysis - C+S If Indicated (07/29/17 01:02) Ct Abd/Pel W Iv Contrast(Rout) (07/29/17 01:02) Iv Access Insert/Monitor (07/29/17 01:02) Ecg Monitoring (07/29/17 01:02) Oximetry (07/29/17 01:02) Sodium Chloride 0.9% Flush (Ns Flush) (07/29/17 01:15) Electrocardiogram (07/29/17 01:02) Ed Urine Pregnancytest Poc (07/29/17 01:02) Sodium Chlor 0.9% 1000 Ml Inj (Ns 1000 M (07/29/17 01:15) Iohexol 350 Inj (Omnipaque 350 Inj) (07/29/17 02:17) Ondansetron Inj (Zofran Inj) (07/29/17 04:15) Morphine Inj (Morphine Inj) (07/29/17 04:15) Diazepam (Valium) (07/29/17 04:15) Morphine Inj (Morphine Inj) (07/29/17 05:15) Admit Order (Ed Use Only) (07/29/17 ) ^ Saline Lock (07/29/17 05:30) Resp Oxygen Iftikhar C Titrat 1-4 L (07/29/17 ) Notify Dr: Other (07/29/17 05:30) Sodium Chloride 0.9% Flush (Ns Flush) (07/29/17 09:00) Sodium Chloride 0.9% Flush (Ns Flush) (07/29/17 05:30) Labs Laboratory Tests Test 07/29/17 01:15 White Blood Count 6.6 TH/MM3 Red Blood Count 3.27 MIL/MM3 Hemoglobin 9.9 GM/DL Hematocrit 28.6 % Mean Corpuscular Volume 87.5 FL Mean Corpuscular Hemoglobin 30.2 PG Mean Corpuscular Hemoglobin Concent 34.6 % Red Cell Distribution Width 16.1 % Platelet Count 165 TH/MM3 Mean Platelet Volume 7.3 FL Neutrophils (%) (Auto) 75.6 % Lymphocytes (%) (Auto) 14.0 % Monocytes (%) (Auto) 8.8 % Eosinophils (%) (Auto) 0.9 % Basophils (%) (Auto) 0.7 % Neutrophils # (Auto) 5.0 TH/MM3 Lymphocytes # (Auto) 0.9 TH/MM3 Monocytes # (Auto) 0.6 TH/MM3 Eosinophils # (Auto) 0.1 TH/MM3 Basophils # (Auto) 0.0 TH/MM3 CBC Comment DIFF FINAL Differential Comment Prothrombin Time 10.9 SEC Prothromb Time International Ratio 1.0 RATIO Activated Partial Thromboplast Time 28.9 SEC Urine Color YELLOW Urine Turbidity HAZY Urine pH 6.5 Urine Specific [place] 1.013 Urine Protein 30 mg/dL Urine Glucose (UA) NEG mg/dL Urine Ketones NEG mg/dL Urine Occult Blood SMALL Urine Nitrite NEG Urine Bilirubin NEG Urine Urobilinogen LESS THAN 2.0 MG/DL Urine Leukocyte Esterase NEG Urine WBC 3 /hpf Urine Squamous Epithelial Cells 4 /hpf Urine Mucus FEW /lpf Microscopic Urinalysis Comment CULT NOT INDICATED Blood Urea Nitrogen 15 MG/DL Creatinine 1.31 MG/DL Random Glucose 119 MG/DL Total Protein 6.5 GM/DL Albumin 3.4 GM/DL Calcium Level 8.8 MG/DL Alkaline Phosphatase 37 U/L Aspartate Amino Transf (AST/SGOT) 11 U/L Alanine Aminotransferase (ALT/SGPT) 16 U/L Total Bilirubin 0.2 MG/DL Sodium Level 136 MEQ/L Potassium Level 3.2 MEQ/L Chloride Level 103 MEQ/L Carbon Dioxide Level 24.7 MEQ/L Anion Gap 8 MEQ/L Estimat Glomerular Filtration Rate 45 ML/MIN Lactic Acid Level 1.7 mmol/L Lipase 70 U/L [facility] Medical Decision Making Medical Screen Exam Complete: Yes Emergency Medical Condition: Yes Medical Record Reviewed: Yes Interpretation(s) Last Impressions Abdomen/Pelvis CT 07/29/17 0102 Signed Impressions: Service Date/Time: Saturday, July 29, 2017 02:08 - CONCLUSION: 1. No dilated loops of small large bowel. 2. Extrahepatic biliary ductal dilatation measuring up to 1.5 cm without calcified gallstone or calcification in the common bile duct. This is a new finding compared to prior CT scans. May consider performing hepatobiliary tract scan to further assess biliary dynamics. Vic Smith MD CBC & BMP Diagram 07/29/17 01:15 Total Protein 6.5, Albumin 3.4, Calcium Level 8.8, Alkaline Phosphatase 37 L, Aspartate Amino Transf (AST/SGOT) 11 L, Alanine Aminotransferase (ALT/SGPT) 16, Total Bilirubin 0.2 Vital Signs Date Time Temp Pulse Resp B/P (MAP) Pulse Ox O2 Delivery O2 Flow Rate FiO2 07/29/17 02:52 98.4 77 18 149/79 (102) 98 Room Air 07/29/17 01:26 Room Air 07/29/17 00:24 99.7 80 16 141/85 (103) 100 Room Air Differential Diagnosis Colitis bowel obstruction viscus perforation diverticulitis UTI like to lie disturbance dehydration Narrative Course IV access obtained specimens collected and sent for resulting IV fluids administered Patient given Zofran 4 g IV morphine sulfate [address] abdomen and pelvis shows some ductal dilatation with recommendation for biliary scan Patient remains hyponatremic although improved; patient receiving IV fluids; call placed to [facility] service HemaPrompt Point of Care Internal Pos. & Neg. Controls: Passed Fecal Specimen Occult Blood: Positive Physician Communication Physician Communication call placed to [facility] service Diagnosis Primary Impression: Abdominal pain Qualified Codes: R10.13 - Epigastric pain Additional Impressions: Hypokalemia Hematochezia Admitting Information Admitting Physician Requests: Observation Geneva Carlisle MD Jul 29, 2017 01:50
[2017-07-29 01:53] LABS: APTT (PATIENT) 28.9 SEC (24.3-30.1); PROTHROMBIN TIME - PATIENT 10.9 SEC (9.8-11.6)
[2017-07-29 01:55] LABS: ALT (GPT) 16 U/L (10-53); ANION GAP 8 MEQ/L (5-15); AST (GOT) 11 U/L (15-37); BICARBONATE 24.7 MEQ/L (21.0-32.0); BLOOD UREA NITROGEN 15 MG/DL (7-18); CHLORIDE 103 MEQ/L (98-107); GLOMERULAR FILTRATION RATE 45 ML/MIN (>89); POTASSIUM 3.2 MEQ/L (3.5-5.1); SODIUM (NA) 136 MEQ/L (136-145)
[2017-07-29 01:57] LABS: ALKALINE PHOSPHATASE 37 U/L (45-117); TOTAL BILIRUBIN ADULT 0.2 MG/DL (0.2-1.0)
[2017-07-29] MEDS ORDERED: IOHEXOL 350 MG/ML 10 ML VIAL (for RAD DIAG) IVCONTRAST ONE (02:17)
--- NOTE | 2017-07-29 02:39 | RADRPT ---
EXAM DATE/TIME: 07/29/2017 02:08 [place] COMPARISON: CT ABDOMEN & PELVIS W/O CONTRAST, March 08, 2017, 21:28. CT ABDOMEN & PELVIS W CONTRAST, October 29, 2015, 17:17. INDICATIONS : Abdominal pain with blood in stool. IV CONTRAST: 100 cc Omnipaque 350 (iohexol) IV ORAL CONTRAST: No oral contrast ingested. RADIATION DOSE: 9.96 CTDIvol (mGy) MEDICAL HISTORY : Gastroparesis. Lupus. SURGICAL HISTORY : Appendectomy. Hysterectomy. ENCOUNTER: Initial ACUITY: 1 day PAIN SCALE: 5/10 LOCATION: abdomen TECHNIQUE: Volumetric scanning of the abdomen and pelvis was performed. Using automated exposure control and ad justment of the mA and/or kV according to patient size, radiation dose was kept as low as reasonably achievable to obtain optimal diagnostic quality images. DICOM format image data is available electro nically for review and comparison. FINDINGS: LOWER LUNGS: The visualized lower lungs are clear. LIVER: No focal lesions in the liver. No calcified gallstones. There is suggestion of mild diffuse gallbla dder wall thickening. The common hepatic duct is dilated to 1.5 cm and the common bile duct is dilat ed to 1.2 cm. There is also mild prominence of the intrahepatic biliary system. SPLEEN: Normal size without lesion. PANCREAS: Within normal limits. KIDNEYS: Normal in size and shape. There is no mass, stone or hydronephrosis. ADRENAL GLANDS: Within normal limits. VASCULAR: There is no aortic aneurysm. BOWEL/MESENTERY: Nondilated loops of small or large bowel. Mild amount of stool throughout the colon. ABDOMINAL WALL: Within normal limits. RETROPERITONEUM: There is no lymphadenopathy. Incidental note of retroaortic left renal vein. BLADDER: No wall thickening or mass. REPRODUCTIVE: Within normal limits. INGUINAL: There is no lymphadenopathy or hernia. MUSCULOSKELETAL: Within normal limits for patient age. CONCLUSION: 1. No dilated loops of small large bowel. 2. Extrahepatic biliary ductal dilatation measuring up to 1.5 cm without calcified gallstone or calci fication in the common bile duct. This is a new finding compared to prior CT scans. May consider pe rforming hepatobiliary tract scan to further assess biliary dynamics. Vic Smith MD on July 29, 2017 at 2:30 Board Certified Radiologist. This report was verified electronically.
[2017-07-29] MEDS ORDERED: ONDANSETRON HCL 4 MG/2 ML VIAL IV PUSH ONE (04:15)
[2017-07-29] MEDS ORDERED: DIAZEPAM 5 MG TAB PO ONE (04:15)
[2017-07-29] MEDS ORDERED: MORPHINE SULFATE 4 MG/ML INJ IV PUSH ONE ×2 (04:15→05:15)
[2017-07-29] MEDS ORDERED: SODIUM CHLORIDE 0.9% FLUSH 10 ML FLUSH IVF PRN (05:30)
[2017-07-29] MEDS ORDERED: ACETAMINOPHEN 325 MG TAB PO PRN (05:45)
[2017-07-29] MEDS ORDERED: BISACODYL 10 MG SUPP RECTAL PRN (05:45)
[2017-07-29] MEDS ORDERED: LACTULOSE SYRUP 20 GM/30 ML CUP PO PRN (05:45)
[2017-07-29] MEDS ORDERED: MAGNESIUM HYDROXIDE SUSP 30 ML CUP PO PRN (05:45)
[2017-07-29] MEDS ORDERED: SENNOSIDES 8.6 MG TAB PO PRN (05:45)
[2017-07-29] MEDS ORDERED: LORazepam 2 MG/ML VIAL IV PUSH PRN (05:45)
[2017-07-29] MEDS ORDERED: ONDANSETRON HCL 4 MG/2 ML VIAL IVP PRN (05:45)
[2017-07-29] MEDS ORDERED: POTASSIUM CHLORIDE 20 MEQ CONTROLLED RELEASE TAB PO ONE ×2 (05:45→13:00)
[2017-07-29] MEDS ORDERED: MORPHINE SULFATE 4 MG/ML INJ IV PUSH PRN (05:45)
--- NOTE | 2017-07-29 05:57 | HHI.HP ---
[facility] Service [facility] Primary Care Physician Neeraj Gilbert D.O. Admission Diagnosis abdominal pain; hypokalemia; hematochezia Diagnoses: (1) Intractable abdominal pain Diagnosis: Principal (2) Rectal bleed Diagnosis: Principal (3) Renal insufficiency Diagnosis: Principal (4) Hypokalemia Diagnosis: Principal (5) HTN (hypertension) Diagnosis: Principal Travel History International Travel<30 Days: No Contact w/Intl Traveler <30 Da: No Traveled to Known Affected Are: No History of Present Illness This is a 41-year-old female with a PMH of Lupus, IBS and Bipolar Disorder that is the ER with complaints of severe abdominal pain in addition to bright red blood per rectum. Presented to ER w/ complaints of abdominal pain 07/28/17, found to have K+ 3.0 which is chronic secondary to her h/o Malabsorption, s/p treatment and d/c'd home. Today w/ recurrent abdominal pain and BRBPR. On arrival, BP 141/85, HR 80, O2 sat RA, Temp 99.7. HEMOGLOBIN 9.9, PRODUCING 10.3 ON 07/28/17. CREATININE 1.31, PRODUCING 1.21 ON 07/28/17. K+ 3.2. Lactic Acid 1.7. UA negative. CT Abd/Pelvis w/ no deficits of small or large bowel, extrahepatic biliary ductal dilatation up to 1.5 cm without stone, consider hepatobiliary tract scan to further assess. Review of Systems Except as stated in HPI: all other systems reviewed are Neg ROS: 14 point review of systems otherwise negative. Past Family Social History Past Medical History PMH: Lupus, IBS and Bipolar Disorder Past Surgical History PAST SURGICAL HISTORY: Laparoscopically, Appendectomy, Partial Hysterectomy Allergies: Coded Allergies: Fish Containing Products (Unverified Allergy, Severe, SWELLING IN THROAT, SOB, 07/28/17) cephalexin (Unverified Allergy, Severe, RASH,SWELLING, 07/28/17) ketorolac (Unverified Allergy, Severe, RASH, 07/28/17) penicillin G (Unverified Allergy, Severe, RASH,SWELLING, 07/28/17) prochlorperazine (Unverified Allergy, Mild, DYSTONIC REACTION, 07/28/17) promethazine (Unverified Allergy, Mild, DYSTONIC REACTION, 07/28/17) gabapentin (Unverified Adverse Reaction, Severe, SEIZURES, 07/28/17) *MDRO Multi-Drug Resistant Organism (Verified Adverse Reaction, Unknown, Cleared - 04/21/16, 07/28/17) MRSA axilla/ breast 2009 MRSA PCR (nares) negative - 04/19/16 & 04/21/16 Cleared per Infection Control Family History PAST FAMILY HISTORY: Reviewed. No h/o DM or CAD Social History PAST SOCIAL HISTORY: Negative for alcohol, tobacco or drugs. Physical Exam Vital Signs Vital Signs Date Time Temp Pulse Resp B/P (MAP) Pulse Ox O2 Delivery O2 Flow Rate FiO2 07/29/17 05:34 97 07/29/17 05:19 77 18 153/76 (101) 97 Room Air 07/29/17 02:52 98.4 77 18 149/79 (102) 98 Room Air 07/29/17 01:26 Room Air 07/29/17 00:24 99.7 80 16 141/85 (103) 100 Room Air Physical Exam PE: GENERAL: Middle-aged female in no acute distress. HEENT: PERRLA, EOMI. No scleral icterus or conjunctival pallor. No lid lag or facial droop. CARDIOVASCULAR: Regular rate and rhythm. No obvious murmurs to auscultation. No chest tenderness to palpation. RESPIRATORY: No obvious rhonchi or wheezing. Clear to auscultation. Breath sounds equal bilaterally. GASTROINTESTINAL: Abdomen soft, generalized tenderness palpation, nondistended. BS normal. MUSCULOSKELETAL: Extremities without clubbing, cyanosis, or edema. No obvious deformities. NEUROLOGICAL: Awake, alert and oriented x4. No focal neurologic deficits. Moving both upper and lower extremities spontaneously. Laboratory Laboratory Tests Test 07/29/17 01:15 White Blood Count 6.6 Red Blood Count 3.27 Hemoglobin 9.9 Hematocrit 28.6 Mean Corpuscular Volume 87.5 Mean Corpuscular Hemoglobin 30.2 Mean Corpuscular Hemoglobin Concent 34.6 Red Cell Distribution Width 16.1 Platelet Count 165 Mean Platelet Volume 7.3 Neutrophils (%) (Auto) 75.6 Lymphocytes (%) (Auto) 14.0 Monocytes (%) (Auto) 8.8 Eosinophils (%) (Auto) 0.9 Basophils (%) (Auto) 0.7 Neutrophils # (Auto) 5.0 Lymphocytes # (Auto) 0.9 Monocytes # (Auto) 0.6 Eosinophils # (Auto) 0.1 Basophils # (Auto) 0.0 CBC Comment DIFF FINAL Differential Comment Prothrombin Time 10.9 Prothromb Time International Ratio 1.0 Activated Partial Thromboplast Time 28.9 Urine Color YELLOW Urine Turbidity HAZY Urine pH 6.5 Urine Specific [place] 1.013 Urine Protein 30 Urine Glucose (UA) NEG Urine Ketones NEG Urine Occult Blood SMALL Urine Nitrite NEG Urine Bilirubin NEG Urine Urobilinogen LESS THAN 2.0 Urine Leukocyte Esterase NEG Urine WBC 3 Urine Squamous Epithelial Cells 4 Urine Mucus FEW Microscopic Urinalysis Comment CULT NOT INDICATED Blood Urea Nitrogen 15 Creatinine 1.31 Random Glucose 119 Total Protein 6.5 Albumin 3.4 Calcium Level 8.8 Alkaline Phosphatase 37 Aspartate Amino Transf (AST/SGOT) 11 Alanine Aminotransferase (ALT/SGPT) 16 Total Bilirubin 0.2 Sodium Level 136 Potassium Level 3.2 Chloride Level 103 Carbon Dioxide Level 24.7 Anion Gap 8 Estimat Glomerular Filtration Rate 45 Lactic Acid Level 1.7 Lipase 70 Result Diagram: 07/29/1711407/29/17114 Caprini VTE Risk Assessment Caprini VTE Risk Assessment: No/Low Risk (score <= 1) Caprini Risk Assessment Model Point Value = 1 Point Value = 2 Point Value = 3 Point Value = 5 Age 41-60 Minor surgery BMI > 25 kg/m2 Swollen legs Varicose veins or History of unexplained or recurrent spontaneous Oral contraceptives or hormone replacement Sepsis (< 1 month) Serious lung disease, including pneumonia (< 1 month) Abnormal pulmonary function Acute myocardial infarction Congestive heart failure (< 1 month) History of inflammatory bowel disease Medical patient at bed rest Age 61-74 Arthroscopic surgery Major open surgery (> 45 min) Laparoscopic surgery (> 45 min) Malignancy Confined to bed (> 72 hours) Immobilizing plaster cast Central venous access Age >= 75 History of VTE Family history of VTE Factor V Leiden Prothrombin [id number] Lupus anticoagulant Anticardiolipin antibodies Elevated serum homocysteine Heparin-induced thrombocytopenia Other congenital or acquired thrombophilia Stroke (< 1 month) Elective arthroplasty Hip, pelvis, or leg fracture Acute spinal cord injury (< 1 month) Prophylaxis Regimen Total Risk Factor Score Risk Level Prophylaxis Regimen 0-1 Low Early ambulation 2 Moderate Order ONE of the following: *Sequential Compression Device (SCD) *Heparin 5000 units SQ BID 3-4 Higher Order ONE of the following medications: *Heparin 5000 units SQ TID *Enoxaparin/Lovenox 40 mg SQ daily (WT < 150 kg, CrCl > 30 mL/min) *Enoxaparin/Lovenox 30 mg SQ daily (WT < 150 kg, CrCl > 10-29 mL/min) *Enoxaparin/Lovenox 30 mg SQ BID (WT < 150 kg, CrCl > 30 mL/min) AND/OR *Sequential Compression Device (SCD) 5 or more Highest Order ONE of the following medications: *Heparin 5000 units SQ TID (Preferred with Epidurals) *Enoxaparin/Lovenox 40 mg SQ daily (WT < 150 kg, CrCl > 30 mL/min) *Enoxaparin/Lovenox 30 mg SQ daily (WT < 150 kg, CrCl > 10-29 mL/min) *Enoxaparin/Lovenox 30 mg SQ BID (WT < 150 kg, CrCl > 30 mL/min) AND *Sequential Compression Device (SCD) Assessment and Plan Problem List: (1) Intractable abdominal pain ICD Code: R10.9 - Unspecified abdominal pain (2) Rectal bleed ICD Code: K62.5 - Hemorrhage of anus and rectum (3) Hypokalemia ICD Code: E87.6 - Hypokalemia (4) HTN (hypertension) ICD Code: I10 - Essential (primary) hypertension (5) Renal insufficiency ICD Code: N28.9 - Disorder of kidney and ureter, unspecified (6) Hypokalemia ICD Code: E87.6 - Hypokalemia Status: Resolved Assessment and Plan A/P: 1. Intractable Abdominal Pain: s/p Morphine in ER w/ minimal improvement. CT Abd/Pelvis w/ no dilated loops of bowel, however extrahepatic biliary ductal dilatation, images reviewed by me. LFTs normal. Continue analgesics/ antiemetics as needed. Obtain HIDA. 2. Rectal Bleed: likely secondary to h/o IBS/Crohn's, Hemoccult +, Hgb 9.9, previously 10.3 on 07/28/17, will monitor. Repeat Hgb/Hct in am. 3. Hypokalemia: Chronic, secondary to malabsorption. K+ 3.2, replace and recheck 4. HTN: BP 140-150's, optimize pain control, resume home medications, monitor BP. 5. DVT Prophylaxis: SCD/Teds. 6. Social work for d/c planning as needed. 7. Case discussed w/ ER physician at length. Rosangela Clements MD Jul 29, 2017 05:57
[2017-07-29] MEDS: predniSONE 20 MG TAB PO SCH (08:49)
[2017-07-29] MEDS: SODIUM CHLORIDE 0.9% FLUSH 10 ML FLUSH IV FLUSH SCH ×2 (08:50→21:05)
[2017-07-29] MEDS: DOCUSATE SODIUM 50 MG/SENNA 8.6 MG TAB PO SCH ×2 (08:50→21:02)
[2017-07-29] MEDS ORDERED: SODIUM CHLORIDE 0.9% FLUSH 10 ML FLUSH IV FLUSH SCH (09:00)
[2017-07-29 09:35] LABS: HEMATOCRIT 29.4 % (35.0-46.0); MEAN CELL VOLUME 88.3 FL (80.0-100.0); MEAN CORPUSCULAR HEMOGLOBIN 28.9 PG (27.0-34.0); MEAN CORPUSCULAR HGB CONC 32.7 % (32.0-36.0); PLATELET COUNT 189 TH/MM3 (150-450); RED BLOOD COUNT 3.32 MIL/MM3 (4.00-5.30); RED CELL DISTRIBUTION WIDTH 16.2 % (11.6-17.2); REVIEW FLAG FINAL
[2017-07-29 10:47] LABS: BICARBONATE 24.6 MEQ/L (21.0-32.0); MAGNESIUM 2.2 MG/DL (1.5-2.5); POTASSIUM 3.2 MEQ/L (3.5-5.1)
[2017-07-29] MEDS ORDERED: POTASSIUM CHLOR 20 MEQ PREMIX 100 ML IV ONE (13:00)
--- NOTE | 2017-07-29 13:13 | HHI.PR ---
Subjective Remarks Follow-up for generalized pain. Patient complains of "all over" pain. She states the pain is worse in her abdomen. She feels like her entire abdomen is being squeezed. She states she has a history of hypokalemia. She states she has a history of esophagitis. She presented yesterday because she had multiple episodes of bright red blood per rectum. She has not had a bowel movement since admission. She is not currently following with gastroenterology for her reported history of gastroparesis due to being too complex and awaiting referral to tertiary care. She reports persistent nausea and states she hasn't eaten anything since she's been here. Awaiting HIDA scan. She states that she has been taking steroids for her lupus, but has not yet been referred to rheumatology. She complains of feeling of throat and chest tightness that she feels may be a panic attack. Objective Vitals Vital Signs Date Time Temp Pulse Resp B/P (MAP) Pulse Ox O2 Delivery O2 Flow Rate FiO2 07/29/17 08:34 97.8 72 20 113/75 (88) 96 07/29/17 07:26 97 21 07/29/17 05:34 97 07/29/17 05:19 77 18 153/76 (101) 97 Room Air 07/29/17 02:52 98.4 77 18 149/79 (102) 98 Room Air 07/29/17 01:26 Room Air 07/29/17 00:24 99.7 80 16 141/85 (103) 100 Room Air Result Diagram: 07/29/17 0825 07/29/17 0825 Imaging Last Impressions Abdomen/Pelvis CT 07/29/17 0102 Signed Impressions: Service Date/Time: Saturday, July 29, 2017 02:08 - CONCLUSION: 1. No dilated loops of small large bowel. 2. Extrahepatic biliary ductal dilatation measuring up to 1.5 cm without calcified gallstone or calcification in the common bile duct. This is a new finding compared to prior CT scans. May consider performing hepatobiliary tract scan to further assess biliary dynamics. Vic Smith MD Objective Remarks GENERAL: Well-developed well-nourished. In no acute distress. SKIN: Warm and dry. Port in place on right chest wall. HEENT: Normocephalic. Pupils equal and round. Mucous membranes pink and moist. CARDIOVASCULAR: Regular rate and rhythm. No murmur appreciated. RESPIRATORY: No accessory muscle use. Clear to auscultation. Breath sounds equal bilaterally. GASTROINTESTINAL: Abdomen exam shows voluntary guarding, nondistended, nontender. Bowel sounds x4. MUSCULOSKELETAL: No obvious deformities. No clubbing or cyanosis. No edema. NEUROLOGICAL: Awake and alert. No focal neurological deficits. Moves upper and lower extremities spontaneously. Normal speech. PSYCHIATRIC: Extremely anxious mood and affect; insight and judgment normal. A/P Problem List: (1) Intractable abdominal pain ICD Code: R10.9 - Unspecified abdominal pain Status: Acute (2) Rectal bleed ICD Code: K62.5 - Hemorrhage of anus and rectum Status: Acute (3) Hypokalemia ICD Code: E87.6 - Hypokalemia Status: Chronic (4) Renal insufficiency ICD Code: N28.9 - Disorder of kidney and ureter, unspecified Status: Acute Assessment and Plan 41-year-old female with a PMH of Lupus, gastroparesis, and Bipolar Disorder who presented with complaints of severe abdominal pain in addition to bright red blood per rectum Generalized pain, worse in the abdomen: Possible lupus flare. Steroids resumed. Pain control with oxycodone and morphine, limit narcotics with history of gastroparesis. Abdominal pain: History of gastroparesis and esophagitis. CT Abd/Pelvis w/ no dilated loops of bowel, however extrahepatic biliary ductal dilatation. LFTs and lipase unremarkable. Continue analgesics/antiemetics as needed. Check HIDA. IV H2 mark with malabsorption. Clear liquids for now. Rectal Bleed: Hemoccult + in the ED. Hgb 9.9/9.6, previously 10.3 on 07/28/17. Monitor H&H. Previous colonoscopy inconclusive secondary to stool. Consult gastroenterology. Hypokalemia: Chronic, secondary to malabsorption. K+ persistently 3.2 after replacement. Give additional IV and oral replacement. Magnesium within normal limits. Follow-up potassium level. Dehydration: Creatinine 1.31, previously 1.21 on 07/28/17. Creatinine improved 1.13. IVF. Continue IVF. Follow-up BMP. Anxiety: Could contribute to above symptoms. Ativan as needed. Consult psychiatry with history of bipolar disorder. DVT Prophylaxis: SCD/Teds. Discharge Planning Follow-up specialists recommendations. Possible discharge planning as early as tomorrow if cleared by specialists and tolerating oral intake. David Eckert Jul 29, 2017 13:13
--- NOTE | 2017-07-29 16:00 | PD.CONS ---
HPI History of Present Illness This is a 41 year old female with hx lupus, bipolar, gastroparesis, who presented with lower abd pain and rectal bleeding. She has chronic intermittent lower abd pain. She has been constipated and says she had a BM last night that had dark red blood intermingled with the stool and she has blood when she wipes. CT did Extrahepatic biliary ductal dilatation measuring up to 1.5 cm without calcified gallstone , she is getting HIDA now. 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 She had EGD and colonoscopy here 01/10/17 that showed poor prep and solid stool, class D esophagitis with path suggestive of herpetic esophagitis. SHe has a port on the right side she says is for her IV potassium replacement. (Mari Pérez) PFSH Past Medical History PMH: Lupus, IBS and Bipolar Disorder Past Surgical History PAST SURGICAL HISTORY: Laparoscopically, Appendectomy, Partial Hysterectomy (Mari Pérez) Coded Allergies: Fish Containing Products (Unverified Allergy, Severe, SWELLING IN THROAT, SOB, 07/28/17) cephalexin (Unverified Allergy, Severe, RASH,SWELLING, 07/28/17) ketorolac (Unverified Allergy, Severe, RASH, 07/28/17) penicillin G (Unverified Allergy, Severe, RASH,SWELLING, 07/28/17) prochlorperazine (Unverified Allergy, Mild, DYSTONIC REACTION, 07/28/17) promethazine (Unverified Allergy, Mild, DYSTONIC REACTION, 07/28/17) gabapentin (Unverified Adverse Reaction, Severe, SEIZURES, 07/28/17) *MDRO Multi-Drug Resistant Organism (Verified Adverse Reaction, Unknown, Cleared - 04/21/16, 07/28/17) MRSA axilla/ breast 2009 MRSA PCR (nares) negative - 04/19/16 & 04/21/16 Cleared per Infection Control Family History PAST FAMILY HISTORY: Reviewed. No h/o DM or CAD Social History PAST SOCIAL HISTORY: Negative for alcohol, tobacco or drugs. (Mari Pérez) Review of Systems Constitutional: COMPLAINS OF: Weight loss Eyes: DENIES: Blurred vision Ears, nose, mouth, throat: DENIES: Hearing loss Respiratory: DENIES: Cough, Hemoptysis Cardiovascular: DENIES: Chest pain Gastrointestinal: COMPLAINS OF: Abdominal pain, Bloody stools, Constipation, DENIES: Black stools, Diarrhea, Nausea, Vomiting, Hematemesis Genitourinary: DENIES: Hematuria Musculoskeletal: DENIES: Joint Swelling Integumentary: DENIES: Rash Neurologic: DENIES: Abnormal gait Psychiatric: DENIES: Confusion (Mari Pérez) GI Exam Vitals I&O Vital Signs Date Time Temp Pulse Resp B/P (MAP) Pulse Ox O2 Delivery O2 Flow Rate FiO2 07/29/17 08:34 97.8 72 20 113/75 (88) 96 07/29/17 07:26 97 21 07/29/17 05:34 97 07/29/17 05:19 77 18 153/76 (101) 97 Room Air 07/29/17 02:52 98.4 77 18 149/79 (102) 98 Room Air 07/29/17 01:26 Room Air 07/29/17 00:24 99.7 80 16 141/85 (103) 100 Room Air Imaging Last Impressions Abdomen/Pelvis CT 07/29/17 0102 Signed Impressions: Service Date/Time: Saturday, July 29, 2017 02:08 - CONCLUSION: 1. No dilated loops of small large bowel. 2. Extrahepatic biliary ductal dilatation measuring up to 1.5 cm without calcified gallstone or calcification in the common bile duct. This is a new finding compared to prior CT scans. May consider performing hepatobiliary tract scan to further assess biliary dynamics. Vic Smith MD Laboratory Test 07/29/17 01:15 07/29/17 08:25 White Blood Count 6.6 TH/MM3 8.0 TH/MM3 Red Blood Count 3.27 MIL/MM3 3.32 MIL/MM3 Hemoglobin 9.9 GM/DL 9.6 GM/DL Hematocrit 28.6 % 29.4 % Mean Corpuscular Volume 87.5 FL 88.3 FL Mean Corpuscular Hemoglobin 30.2 PG 28.9 PG Mean Corpuscular Hemoglobin Concent 34.6 % 32.7 % Red Cell Distribution Width 16.1 % 16.2 % Platelet Count 165 TH/MM3 189 TH/MM3 Mean Platelet Volume 7.3 FL 7.6 FL Neutrophils (%) (Auto) 75.6 % Lymphocytes (%) (Auto) 14.0 % Monocytes (%) (Auto) 8.8 % Eosinophils (%) (Auto) 0.9 % Basophils (%) (Auto) 0.7 % Neutrophils # (Auto) 5.0 TH/MM3 Lymphocytes # (Auto) 0.9 TH/MM3 Monocytes # (Auto) 0.6 TH/MM3 Eosinophils # (Auto) 0.1 TH/MM3 Basophils # (Auto) 0.0 TH/MM3 CBC Comment DIFF FINAL Differential Comment Prothrombin Time 10.9 SEC Prothromb Time International Ratio 1.0 RATIO Activated Partial Thromboplast Time 28.9 SEC Urine Color YELLOW Urine Turbidity HAZY Urine pH 6.5 Urine Specific [place] 1.013 Urine Protein 30 mg/dL Urine Glucose (UA) NEG mg/dL Urine Ketones NEG mg/dL Urine Occult Blood SMALL Urine Nitrite NEG Urine Bilirubin NEG Urine Urobilinogen LESS THAN 2.0 MG/DL Urine Leukocyte Esterase NEG Urine WBC 3 /hpf Urine Squamous Epithelial Cells 4 /hpf Urine Mucus FEW /lpf Microscopic Urinalysis Comment CULT NOT INDICATED Blood Urea Nitrogen 15 MG/DL 11 MG/DL Creatinine 1.31 MG/DL 1.13 MG/DL Random Glucose 119 MG/DL 89 MG/DL Total Protein 6.5 GM/DL Albumin 3.4 GM/DL Calcium Level 8.8 MG/DL 8.7 MG/DL Alkaline Phosphatase 37 U/L Aspartate Amino Transf (AST/SGOT) 11 U/L Alanine Aminotransferase (ALT/SGPT) 16 U/L Total Bilirubin 0.2 MG/DL Sodium Level 136 MEQ/L 138 MEQ/L Potassium Level 3.2 MEQ/L 3.2 MEQ/L Chloride Level 103 MEQ/L 105 MEQ/L Carbon Dioxide Level 24.7 MEQ/L 24.6 MEQ/L Anion Gap 8 MEQ/L 8 MEQ/L Estimat Glomerular Filtration Rate 45 ML/MIN 53 ML/MIN Lactic Acid Level 1.7 mmol/L Lipase 70 U/L Magnesium Level 2.2 MG/DL Physical Examination HEENT: PERRL; normocephalic; atraumatic; no jaundice. poor dentition CHEST: CTA CARDIAC: RRR ABDOMEN: Soft, nondistended, mild TTP lower abd; no hepatosplenomegaly; bowel sounds faint EXTREMITIES: No clubbing, cyanosis, or edema. SKIN: ; no jaundice. CLIENT CARE SPECIALIST: No focal deficits; alert and oriented times three. (Mari Pérez) Assessment and Plan Plan ASSESSMENT - rectal bleed - dark red blood intermingled in stool last night, blood on wipe. No BM today. colonoscopy 01/10/17 poor prep and solid stool - anemia - 9.9 on admission. her hgb values over the last few months range bet 8 and 11. - abd pain - chronic lower abd pain unclear etiology, this has been worked up. CT did Extrahepatic biliary ductal dilatation measuring up to 1.5 cm without calcified gallstone , she is getting HIDA now - hx gastroparesis PLAN - await HIDA - colonoscopy monday - obtain consent - clears monday - mg citrate prep - NPO after midnight monday night - monitor HH - further recs to follow This pt seen by myself and Dr Espinosa and this note is written on his behalf (Mari Pérez) Physician Comments Patient seen and examined Agree with above Continue with current supportive care Monitor labs We'll proceed with a colonoscopy on Monday I will also be ordering an MRI to further evaluate this no dilation of the bile duct (Erik Espinosa MD) Mari Pérez Jul 29, 2017 16:00 Erik Espinosa MD Jul 29, 2017 22:08
[2017-07-29] MEDS: FAMOTIDINE 20 MG/2 ML VIAL IV PUSH SCH ×2 (16:14→17:55)
--- NOTE | 2017-07-29 16:23 | RADRPT ---
EXAM DATE/TIME: 07/29/2017 13:10 [facility] COMPARISON: CT ABDOMEN & PELVIS W CONTRAST, July 29, 2017, 2:08. INDICATIONS : Abdomen pain with abnormal CT demonstrating dilatation of the biliary system.. DOSE: 4.1 mCi Tc99m Mebrofenin IV MEDICAL HISTORY : Lupus. Hypertension. SURGICAL HISTORY : Hysterectomy. Appendectomy. ENCOUNTER: Initial ACUITY: 1 day PAIN SCALE: 0/10 LOCATION: upper quadrant TECHNIQUE: Following the intravenous administration of radiotracer, dynamic sequential images were performed wit h continuous acquisition. FINDINGS: HEPATIC KINETICS: There is prompt uptake of radiotracer in the liver. No focal defects are seen. There is normal rate of washout from the hepatic parenchyma. BILIARY CLEARANCE: Activity is first seen in the extrahepatic biliary system at 15 minutes. There is normal excretion i nto the small bowel. GALLBLADDER: Activity is first seen in the gallbladder at 20 minutes. Common bile duct kinetics are normal and th ere is no evidence of biliary obstruction. BILIARY ENTRIC REFLUX: None observed. CONCLUSION: Unremarkable exam. Kane Tejeda MD on July 29, 2017 at 16:19 Board Certified Radiologist. This report was verified electronically.
--- NOTE | 2017-07-29 16:38 | EKG ---
Date Performed: 07/29/2017 Time Performed: 01:55:07 PTAGE: 41 years EKG: INTRAVENTRICULAR CONDUCTION DISTURBANCE Compared to prior tracing no significant change ABN ORMAL ECG PREVIOUS TRACING : 07/28/2017 17.41 DOCTOR: Ross Caballero Interpretating Date/Time 07/29/2017 16:36:06
[2017-07-29] MEDS: LORazepam 0.5 MG TAB PO PRN ×2 (17:42→22:22)
[2017-07-29] MEDS: MORPHINE SULFATE 4 MG/ML INJ IV PUSH PRN (21:04)
[2017-07-30 00:51] VITALS: BP 108/68; PULSE 70; RESP 16; TEMP 98.9; O2SAT 96
[2017-07-30] MEDS: SODIUM CHLOR 0.9% 1000 ML INJ 1,000 ML IV SCH ×2 (01:35→02:55)
[2017-07-30] MEDS: MORPHINE SULFATE 4 MG/ML INJ IV PUSH PRN ×3 (02:55→21:40)
[2017-07-30 03:31] VITALS: BP 115/70; PULSE 74; RESP 16; TEMP 99; O2SAT 99
[2017-07-30] MEDS: LORazepam 0.5 MG TAB PO PRN ×2 (04:07→11:29)
[2017-07-30] MEDS: FAMOTIDINE 20 MG/2 ML VIAL IV PUSH SCH ×2 (05:33→17:30)
[2017-07-30 08:18] VITALS: BP 135/90; PULSE 81; RESP 18; TEMP 99; O2SAT 96
[2017-07-30 08:49] LABS: AUTOMATED NEUTROPHIL # 5.6 TH/MM3 (1.8-7.7); BASOPHIL # 0.1 TH/MM3 (0-0.2); BASOPHIL % 0.7 % (0.0-2.0); EOSINOPHIL # 0.1 TH/MM3 (0-0.4); EOSINOPHIL % 1.3 % (0.0-4.0); HEMATOCRIT 31.6 % (35.0-46.0); HEMO FLAGS DIFF FINAL; LYMPH % 25.5 % (9.0-44.0); LYMPHOCYTE # 2.2 TH/MM3 (1.0-4.8); MEAN CELL VOLUME 87.8 FL (80.0-100.0); MEAN CORPUSCULAR HEMOGLOBIN 29.1 PG (27.0-34.0); MEAN CORPUSCULAR HGB CONC 33.1 % (32.0-36.0); MONO % 8.1 % (0.0-8.0); NEUT % 64.4 % (16.0-70.0); PLATELET COUNT 205 TH/MM3 (150-450); RED CELL DISTRIBUTION WIDTH 16.5 % (11.6-17.2); WHITE BLOOD COUNT 8.7 TH/MM3 (4.0-11.0)
--- NOTE | 2017-07-30 08:50 | HHI.GIFU ---
Subjective Remarks Lying in bed. Reports continued abdominal pain that she localizes at lower abdominal area. Has not had a bowel movement since admission. (Lea Jimenez) Objective Vitals I&O Vital Signs Date Time Temp Pulse Resp B/P (MAP) Pulse Ox O2 Delivery O2 Flow Rate FiO2 07/30/17 08:18 99.0 81 18 135/90 (105) 96 07/30/17 03:31 99.0 74 16 115/70 (85) 99 07/30/17 00:51 98.9 70 16 108/68 (81) 96 07/29/17 20:58 96 21 07/29/17 19:40 99.0 77 16 110/72 (85) 96 07/29/17 17:34 21 07/29/17 16:08 98.2 80 20 126/89 (101) 96 07/29/17 08:34 97.8 72 20 113/75 (88) 96 I/O 07/29/17 07/29/17 07/29/17 07/30/17 07/30/17 07/30/17 07:00 15:00 23:00 07:00 15:00 23:00 Intake Total 1000 ml Balance 1000 ml Intake Oral 1000 ml # Voids 5 Laboratory Laboratory Tests Test 07/29/17 01:15 07/29/17 08:25 Neutrophils (%) (Auto) 75.6 % Lymphocytes (%) (Auto) 14.0 % Monocytes (%) (Auto) 8.8 % Eosinophils (%) (Auto) 0.9 % Basophils (%) (Auto) 0.7 % Neutrophils # (Auto) 5.0 TH/MM3 Lymphocytes # (Auto) 0.9 TH/MM3 Monocytes # (Auto) 0.6 TH/MM3 Eosinophils # (Auto) 0.1 TH/MM3 Basophils # (Auto) 0.0 TH/MM3 CBC Comment DIFF FINAL Differential Comment Prothrombin Time 10.9 SEC Prothromb Time International Ratio 1.0 RATIO Activated Partial Thromboplast Time 28.9 SEC Urine Color YELLOW Urine Turbidity HAZY Urine pH 6.5 Urine Specific [place] 1.013 Urine Protein 30 mg/dL Urine Glucose (UA) NEG mg/dL Urine Ketones NEG mg/dL Urine Occult Blood SMALL Urine Nitrite NEG Urine Bilirubin NEG Urine Urobilinogen LESS THAN 2.0 MG/DL Urine Leukocyte Esterase NEG Urine WBC 3 /hpf Urine Squamous Epithelial Cells 4 /hpf Urine Mucus FEW /lpf Microscopic Urinalysis Comment CULT NOT INDICATED Lactic Acid Level 1.7 mmol/L Blood Urea Nitrogen 15 MG/DL 11 MG/DL Creatinine 1.31 MG/DL 1.13 MG/DL Random Glucose 119 MG/DL 89 MG/DL Total Protein 6.5 GM/DL Albumin 3.4 GM/DL Calcium Level 8.8 MG/DL 8.7 MG/DL Alkaline Phosphatase 37 U/L Aspartate Amino Transf (AST/SGOT) 11 U/L Alanine Aminotransferase (ALT/SGPT) 16 U/L Total Bilirubin 0.2 MG/DL Sodium Level 136 MEQ/L 138 MEQ/L Potassium Level 3.2 MEQ/L 3.2 MEQ/L Chloride Level 103 MEQ/L 105 MEQ/L Carbon Dioxide Level 24.7 MEQ/L 24.6 MEQ/L Lipase 70 U/L White Blood Count 8.0 TH/MM3 Red Blood Count 3.32 MIL/MM3 Hemoglobin 9.6 GM/DL Hematocrit 29.4 % Mean Corpuscular Volume 88.3 FL Mean Corpuscular Hemoglobin 28.9 PG Mean Corpuscular Hemoglobin Concent 32.7 % Red Cell Distribution Width 16.2 % Platelet Count 189 TH/MM3 Mean Platelet Volume 7.6 FL Magnesium Level 2.2 MG/DL Anion Gap 8 MEQ/L Estimat Glomerular Filtration Rate 53 ML/MIN Imaging Last Impressions Abdomen/Pelvis CT 07/29/17 0102 Signed Impressions: Service Date/Time: Saturday, July 29, 2017 02:08 - CONCLUSION: 1. No dilated loops of small large bowel. 2. Extrahepatic biliary ductal dilatation measuring up to 1.5 cm without calcified gallstone or calcification in the common bile duct. This is a new finding compared to prior CT scans. May consider performing hepatobiliary tract scan to further assess biliary dynamics. Vic Smith MD Hepatobiliary Scan Nuclear Medicine 07/29/17 0000 Signed Impressions: Service Date/Time: Saturday, July 29, 2017 13:10 - CONCLUSION: Unremarkable exam. Kane Tejeda MD Physical Exam HEENT: Normocephalic; atraumatic; no jaundice. NECK: Neck is supple. CHEST: CTA CARDIAC: RRR with no murmur gallop or rubs. ABDOMEN: Nondistended; guarding to palpation, bowel sounds are present. EXTREMITIES: No clubbing, cyanosis, or edema. SKIN: Normal; no rash; no jaundice. DRILLING SUPERVISOR: No focal deficits; alert and oriented x 3 (Lea Jimenez) Assessment and Plan Plan ASSESSMENT - Rectal bleed, Patient reports dark red blood intermingled in stool with blood on wipe. Colonoscopy (01/10/17)--Poor prep and solid stool. - Anemia, 9.9 on admission. Hgb values over the last few months range between 8 and 11. - Abdominal pain, chronic lower abdominal pain, unclear etiology. Patient does have history of gastroparesis. Abdominal/Pelvis CT (07/29/17)--1. No dilated loops of small large bowel. 2. Extrahepatic biliary ductal dilatation measuring up to 1.5 cm without calcified gallstone or calcification in the common bile duct. This is a new finding compared to prior CT scans. May consider performing hepatobiliary tract scan to further assess biliary dynamics. HIDA Scan (07/29/17)--Unremarkable exam. 07/30/17--Continues to have abdominal pain that patient localizes at lower abdominal area. Patient has voluntary guarding on palpation of the abdomen. Has not had BM since admission. No active bleeding. MRI MRCP ordered yesterday , but patient has not completed at this time. 9.6/29.4 yesterday. Today's labs have not been completed yet. PLAN - Colonoscopy Monday - Clear liquid diet today - Mag citrate prep today - NPO after MN tonight - Await MRI MRCP results - Monitor HH - Further recommendation to follow based on results of above. Patient seen and examined by Dr. Espinosa and myself and this note is written on his behalf. (Lea Jimenez) Physician Comments Patient seen and examined Agree with above Continue with current supportive care Monitor labs We will proceed with both an EGD and a colonoscopy tomorrow MRCP noted to be unremarkable (Erik Espinosa MD) Lea Jimenez Jul 30, 2017 08:50 Erik Espinosa MD Jul 30, 2017 20:20
[2017-07-30] MEDS: SODIUM CHLORIDE 0.9% FLUSH 10 ML FLUSH IV FLUSH SCH ×2 (09:00→21:00)
[2017-07-30 09:09] LABS: ANION GAP 4 MEQ/L (5-15); AST (GOT) 11 U/L (15-37); BICARBONATE 28.6 MEQ/L (21.0-32.0); BLOOD UREA NITROGEN 11 MG/DL (7-18); CHLORIDE 104 MEQ/L (98-107); GLOMERULAR FILTRATION RATE 66 ML/MIN (>89); SODIUM (NA) 137 MEQ/L (136-145)
[2017-07-30 09:16] LABS: ALKALINE PHOSPHATASE 38 U/L (45-117); ALT (GPT) 15 U/L (10-53); TOTAL BILIRUBIN ADULT 0.3 MG/DL (0.2-1.0)
[2017-07-30 09:18] LABS: POTASSIUM 2.9 MEQ/L (3.5-5.1)
[2017-07-30] MEDS ORDERED: POTASSIUM CHLORIDE 10 MEQ CONTROLLED RELEASE TAB PO ONE (10:00)
[2017-07-30 11:09] VITALS: BP 117/76; PULSE 77; RESP 17; TEMP 98.6; O2SAT 98
[2017-07-30] MEDS: DOCUSATE SODIUM 50 MG/SENNA 8.6 MG TAB PO SCH ×2 (11:36→21:00)
[2017-07-30] MEDS: predniSONE 20 MG TAB PO SCH (11:36)
[2017-07-30] MEDS: NS + KCL 20 MEQ INJ 1,000 ML IV SCH (11:40)
--- NOTE | 2017-07-30 11:44 | RADRPT ---
EXAM DATE/TIME: 07/30/2017 09:39 [place] COMPARISON: BILIARY SCAN (HIDA), July 29, 2017, 13:10. CT ABDOMEN & PELVIS W CONTRAST, July 29, 2017, 2:08. INDICATIONS : Dilated common bile duct, MEDICAL HISTORY : Lupus. SURGICAL HISTORY : None. ENCOUNTER: Initial ACUITY: 1 day PAIN SCORE: 5/10 LOCATION: Abdomen. TECHNIQUE: Multiplanar, multisequence magnetic resonance imaging of the abdomen was performed. High-resolution 3D dataset was utilized to reconstruct maximum-intensity projection (MIP) images. FINDINGS: INTRAHEPATIC BILE DUCTS: Within normal limits. No significant anatomical variant is present. EXTRAHEPATIC BILE DUCTS: The common bile duct measures 8 mm proximally and 4 mm distally. No stone or filling defect is identi fied. GALLBLADDER: No stones, wall thickening, or pericholecystic fluid. LIVER: Normal size and signal intensity. No concerning liver lesion is identified on this non-contrast exam. There is a 5 mm cyst in the right posterior liver. PANCREAS: The main pancreatic duct is normal in size. There is no significant anatomical variant. Signal inte nsity is within normal limits. No mass is visualized on this non-contrast exam. OTHER: The remaining visualized structures demonstrate no acute abnormality on this non-contrast exam. CONCLUSION: Normal MRCP examination. There are no findings to indicate bile duct obstruction. Brian Zhou MD on July 30, 2017 at 11:37 Board Certified Radiologist. This report was verified electronically.
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
[2017-07-30] MEDS ORDERED: diphenhydrAMINE HCL 50 MG CAP PO ONE (13:15)
[2017-07-30] MEDS ORDERED: diphenhydrAMINE HCL 50 MG CAP PO PRN (13:15)
[2017-07-30] MEDS: POTASSIUM CHLOR 20 MEQ PREMIX 100 ML IV SCH ×4 (13:55→23:44)
[2017-07-30 15:59] VITALS: BP 114/79; PULSE 77; RESP 17; TEMP 99; O2SAT 98
[2017-07-30] MEDS ORDERED: MAGNESIUM CITRATE SOLN 300 ML BTL PO ONE ×2 (16:45→23:00)
[2017-07-30 17:10] LABS: BICARBONATE 26.4 MEQ/L (21.0-32.0); POTASSIUM 3.2 MEQ/L (3.5-5.1)
[2017-07-30] MEDS ORDERED: POTASSIUM CHLORIDE 20 MEQ CONTROLLED RELEASE TAB PO ONE (17:45)
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
[2017-07-30] MEDS: LORazepam 1 MG TAB PO PRN (19:44)
[2017-07-30 20:59] VITALS: BP 118/75; PULSE 73; RESP 18; TEMP 98.7; O2SAT 99
[2017-07-31] MEDS: LORazepam 1 MG TAB PO PRN ×4 (01:59→21:24)
[2017-07-31] MEDS: POTASSIUM CHLOR 20 MEQ PREMIX 100 ML IV SCH ×2 (01:59→04:33)
[2017-07-31] MEDS: MORPHINE SULFATE 4 MG/ML INJ IV PUSH PRN ×3 (03:17→17:40)
[2017-07-31 04:53] VITALS: BP 149/98; PULSE 80; RESP 18; TEMP 98.8; O2SAT 100
[2017-07-31] MEDS ORDERED: MAGNESIUM CITRATE SOLN 300 ML BTL PO ONE (05:00)
[2017-07-31] MEDS: FAMOTIDINE 20 MG/2 ML VIAL IV PUSH SCH ×2 (05:40→17:40)
[2017-07-31 06:40] LABS: BICARBONATE 28.1 MEQ/L (21.0-32.0); MAGNESIUM 2.2 MG/DL (1.5-2.5)
[2017-07-31 07:42] VITALS: O2SAT 98
[2017-07-31] MEDS: predniSONE 20 MG TAB PO SCH (08:38)
[2017-07-31] MEDS: DOCUSATE SODIUM 50 MG/SENNA 8.6 MG TAB PO SCH ×2 (08:38→20:01)
[2017-07-31] MEDS: NS + KCL 20 MEQ INJ 1,000 ML IV SCH ×3 (08:38→21:06)
[2017-07-31] MEDS: SODIUM CHLORIDE 0.9% FLUSH 10 ML FLUSH IV FLUSH SCH ×2 (08:39→20:01)
[2017-07-31] MEDS ORDERED: MIDAZOLAM HCL 2 MG/2 ML VIAL ONE (09:46)
[2017-07-31] MEDS ORDERED: methylPREDNISolone SOD SUCC 125 MG/2 ML VIAL ONE (09:48)
[2017-07-31] MEDS ORDERED: LACTATED RINGER'S 1000 ML INJ 1,000 ML IV ONE (10:21)
[2017-07-31] MEDS ORDERED: DO NOT ADM ANY ANTICOAGULANT DRUGS PRN (10:35)
--- NOTE | 2017-07-31 10:36 | HHI.GIFU ---
Subjective Remarks Patient lying in bed, still complaining of abdominal discomfort, took the prep Objective Vitals I&O Vital Signs Date Time Temp Pulse Resp B/P (MAP) Pulse Ox O2 Delivery O2 Flow Rate FiO2 07/31/17 07:42 98 21 07/31/17 04:53 98.8 80 18 149/98 (115) 100 07/30/17 20:59 98.7 73 18 118/75 (89) 99 07/30/17 16:54 20 07/30/17 15:59 99.0 77 17 114/79 (91) 98 07/30/17 13:53 20 07/30/17 11:09 98.6 77 17 117/76 (90) 98 I/O 07/30/17 07/30/17 07/30/17 07/31/17 07/31/17 07/31/17 07:00 15:00 23:00 07:00 15:00 23:00 Intake Total 200 ml Balance 200 ml IV Total 200 ml # Voids 3 1 Laboratory Laboratory Tests Test 07/30/17 16:34 07/31/17 05:45 Blood Urea Nitrogen 11 13 Creatinine 1.11 0.83 Random Glucose 149 118 Calcium Level 8.5 9.3 Sodium Level 136 139 Potassium Level 3.2 4.0 Chloride Level 102 106 Carbon Dioxide Level 26.4 28.1 Anion Gap 8 5 Estimat Glomerular Filtration Rate 54 76 Phosphorus Level 1.3 Magnesium Level 2.2 Physical Exam HEENT: Normocephalic; atraumatic; no jaundice. NECK: Neck is supple. CHEST: CTA CARDIAC: RRR with no murmur gallop or rubs. ABDOMEN: Nondistended; moderate abdominal discomfort and tenderness, bowel sounds are present. EXTREMITIES: No clubbing, cyanosis, or edema. SKIN: Normal; no rash; no jaundice. MANAGER DIALYSIS: No focal deficits; alert and oriented x 3 Assessment and Plan Plan ASSESSMENT - Rectal bleed, Patient reports dark red blood intermingled in stool with blood on wipe. Colonoscopy (01/10/17)--Poor prep and solid stool. - Anemia, 9.9 on admission. Hgb values over the last few months range between 8 and 11. - Abdominal pain, chronic lower abdominal pain, unclear etiology. Patient does have history of gastroparesis. Abdominal/Pelvis CT (07/29/17)--1. No dilated loops of small large bowel. 2. Extrahepatic biliary ductal dilatation measuring up to 1.5 cm without calcified gallstone or calcification in the common bile duct. This is a new finding compared to prior CT scans. May consider performing hepatobiliary tract scan to further assess biliary dynamics. HIDA Scan (07/29/17)--Unremarkable exam. 07/30/17--Continues to have abdominal pain that patient localizes at lower abdominal area. Patient has voluntary guarding on palpation of the abdomen. Has not had BM since admission. No active bleeding. MRI MRCP ordered yesterday , but patient has not completed at this time. HH 9.6/29.4 yesterday. Today's labs have not been completed yet. 08/02/2017 continued to have generalized abdominal discomfort, no active bleeding , upper endoscopy showed gastritis with gastric ulcers biopsy was done from the antrum and duodenitis with duodenal ulcer biopsy from the duodenum otherwise normal, colonoscopy poor prep and only was able to go up to 25 cm and there was significant stool prevented me from going any further PLAN - Colonoscopy tomorrow - Clear liquid diet today -GoLYTELY - NPO after MN tonight -No NSAIDs -Continue PPI - Monitor HH - Further recommendation to follow based on results of above. Patient seen and examined by Dr. Espinosa and myself and this note is written on his behalf. Alvarado Lucero MD Jul 31, 2017 10:36
--- NOTE | 2017-07-31 10:40 | GIPROC ---
[facility] [address] [facility]. [facility], [address] COLONOSCOPY PROCEDURE REPORT EXAM DATE: 07/31/2017 PATIENT NAME: Brisa Hernandez MR #: [id number] BIRTHDATE: 1975 ENDOSCOPIST: Alvarado Lucero MD ORDER #: [id number] DELIVERY DRIVER: Kiko Briceno and Agata Chaudhry STATUS: inpatient INDICATIONS: The patient is a 41 yr old female here for a colonoscopy due to rectal bleeding and abdominal pain PROCEDURE PERFORMED: Colonoscopy, incomplete MEDICATIONS: None and Per Anesthesia. PREP QUALITY: poor PREP TYPE:Magnesium Citrate ESTIMATED BLOOD LOSS: None CONSENT: The patient understands the risks and benefits of the procedure and understands that these risks include, but are not limited to: sedation, allergic reaction, infection, perforation and/or bleeding. Alternative means of evaluation and treatment include, among others: physical exam, x-rays, and/or surgical intervention. The patient elects to proceed with this endoscopic procedure. medical equipment was checked for proper function. Hand hygiene and appropriate measures for infection prevention was taken. After the risks, benefits and alternatives of the procedure were thoroughly explained, Informed consent was verified, confirmed and timeout was successfully executed by the treatment team. A digital exam revealed no abnormalities of the rectum The Pentax EC-[id number] endoscope was introduced through the anus and advanced to the sigmoid colon. The instrument was then slowly withdrawn as the colon was fully examined. COLON FINDINGS: Exam to rectosigmoid area significant amount of stool unable to pass the scope beyond that procedure terminated. Retroflexed views revealed no abnormalities The scope was then completely withdrawn from the patient and the procedure terminated. ADVERSE EVENTS: There were no complications. IMPRESSIONS: 1. Exam to rectosigmoid area significant amount of stool unable to pass the scope beyond that procedure terminated 2. Retroflexed views revealed no abnormalities 3. Revealed no abnormalities of the rectum RECOMMENDATIONS: 1. Yearly hemoccult 2. High fiber diet 3. Colonoscopy with another prep for tomorrow RECALL: Return 1 day Colonoscopy Alvarado Lucero MD eSigned: Alvarado Lucero MD 07/31/2017 10:39 AM cc:
--- NOTE | 2017-07-31 10:42 | GIPROC ---
[facility] [address] [facility]. [facility], [address] EGD PROCEDURE REPORT EXAM DATE: 07/31/2017 PATIENT NAME: Brisa Hernandez MR #: [id number] BIRTHDATE: 1975 ATTENDING: Alvarado Lucero MD ORDER #: [id number] ELECTRIC STOVE MECHANIC: Kiko Briceno and Agata Chaudhry STATUS: inpatient INDICATIONS: The patient is a 41 yr old female here for an EGD due to Abdominal pain and anemia PROCEDURE PERFORMED: EGD w/ biopsy MEDICATIONS: None and Per Anesthesia. TOPICAL ANESTHETIC: none CONSENT: The patient understands the risks and benefits of the procedure and understands that these risks include, but are not limited to: sedation, allergic reaction, infection, perforation and/or bleeding. Alternative means of evaluation and treatment include, among others: physical exam, x-rays, and/or surgical intervention. The patient elects to proceed with this endoscopic procedure. medical equipment was checked for proper function. Hand hygiene and appropriate measures for infection prevention was taken. After the risks, benefits and alternatives of the procedure were thoroughly explained, Informed consent was verified, confirmed and timeout was successfully executed by the treatment team. The patient was anesthetized with topical anesthesia and the EC-3490Li (Pedi C) endoscope was introduced through the mouth and advanced to the second portion of the duodenum. Retroflexed views revealed no abnormalities The gastroscope was then slowly withdrawn and removed. Severe gastritis, multiple ulcers in the antrum biopsy was done from the antrum. Severe duodenitis, few ulcers in the duodenal bulb labs he was done. The endoscopy was otherwise normal. ADVERSE EVENTS: There were no complications. IMPRESSIONS: 1. Severe gastritis, multiple ulcers in the antrum biopsy was done from the antrum 2. Severe duodenitis, few ulcers in the duodenal bulb labs he was done 3. Normal endoscopy otherwise 4. Retroflexed views revealed no abnormalities RECOMMENDATIONS: 1. Await biopsy results. Biopsy results will not be ready for 7-10 days. If you don't hear from us in two weeks, call our office for biopsy results. 2. Anti-reflux regimen 3. Avoid NSAIDS 4. Protonix 40mg Q AM PATIENT CONDITION: stable DISPOSITION: Inpatient REPEAT EXAM: Return as needed for EGD Alvarado Lucero MD eSigned: Alvarado Lucero MD 07/31/2017 10:42 AM cc:
[2017-07-31] MEDS ORDERED: methylPREDNISolone SOD SUCC 125 MG/2 ML VIAL IV ONE (12:00)
[2017-07-31] MEDS ORDERED: PROPOFOL 200 MG/20 ML AMP IV ONE (12:00)
[2017-07-31] MEDS: POTASSIUM PHOSPHATE MONOBASIC 500 MG TAB PO SCH ×2 (12:23→20:04)
[2017-07-31] MEDS: PANTOPRAZOLE SOD 40 MG DELAYED RELEASE TAB PO SCH (12:24)
[2017-07-31] MEDS ORDERED: PEG (High)/E-LYTE SOLN 4000 ML BTL PO ONE (14:30)
[2017-07-31] MEDS ORDERED: BENZOCAINE 7.5% ORAL GEL 9.4 GM TUBE OROPHARYNG ONE (14:45)
--- NOTE | 2017-07-31 14:49 | HHI.PR ---
Subjective Remarks The pt said that she had pain in her teeth and she requested Orajel. She said she talked with her Dr. in [facility] and wants to be transferred there later this week. She said she will take the preparation for the repeat colonoscopy tomorrow. Discussed with case management. Objective Vitals Vital Signs Date Time Temp Pulse Resp B/P (MAP) Pulse Ox O2 Delivery O2 Flow Rate FiO2 07/31/17 10:55 97.8 71 15 104/63 (77) 96 Room Air 07/31/17 10:45 70 14 105/67 (80) 95 Room Air 07/31/17 10:35 98.4 66 12 106/64 (78) 94 Room Air 07/31/17 07:42 98 21 07/31/17 04:53 98.8 80 18 149/98 (115) 100 07/30/17 20:59 98.7 73 18 118/75 (89) 99 07/30/17 16:54 20 07/30/17 15:59 99.0 77 17 114/79 (91) 98 I/O 07/30/17 07/30/17 07/30/17 07/31/17 07/31/17 07/31/17 07:00 15:00 23:00 07:00 15:00 23:00 Intake Total 200 ml 530 ml Balance 200 ml 530 ml IV Total 200 ml 30 ml Other 500 ml # Voids 3 1 Result Diagram: 07/30/17 0810 07/31/17 0545 Imaging Last Impressions Cholangiopancreatography MRI 07/30/17 0000 Signed Impressions: Service Date/Time: Sunday, July 30, 2017 09:39 - CONCLUSION: Normal MRCP examination. There are no findings to indicate bile duct obstruction. Brian Zhou MD Abdomen/Pelvis CT 07/29/17 0102 Signed Impressions: Service Date/Time: Saturday, July 29, 2017 02:08 - CONCLUSION: 1. No dilated loops of small large bowel. 2. Extrahepatic biliary ductal dilatation measuring up to 1.5 cm without calcified gallstone or calcification in the common bile duct. This is a new finding compared to prior CT scans. May consider performing hepatobiliary tract scan to further assess biliary dynamics. Vic Smith MD Hepatobiliary Scan Nuclear Medicine 07/29/17 0000 Signed Impressions: Service Date/Time: Saturday, July 29, 2017 13:10 - CONCLUSION: Unremarkable exam. Kane Tejeda MD Objective Remarks GENERAL: Thin, disheveled. In no acute distress. SKIN: Warm and dry. Port in place on right chest wall. Rash on right side of neck and face resolved. HEENT: Normocephalic. Pupils equal and round. Mucous membranes pink and moist. Poor dentition with many missing teeth. CARDIOVASCULAR: Regular rate and rhythm. No murmur appreciated. RESPIRATORY: No accessory muscle use. Clear to auscultation. Breath sounds equal bilaterally. GASTROINTESTINAL: Abdomen exam shows voluntary guarding, nondistended, nontender. Bowel sounds x4. MUSCULOSKELETAL: No obvious deformities. No clubbing or cyanosis. No edema. NEUROLOGICAL: Awake and alert. No focal neurological deficits. Moves upper and lower extremities spontaneously. Normal speech. PSYCHIATRIC: Slightly flattened affect. Procedures EGD/ colonoscopy Medications and IVs Current Medications Medications (Trade) Dose Ordered Sig/Osito Route Start Time Stop Time Status Last Admin (NS Flush) 2 ml UNSCH PRN IV FLUSH 07/29/17 05:45 (NS Flush) 2 ml BID IV FLUSH 07/29/17 09:00 07/31/17 08:39 (Zofran Inj) 4 mg Q6H PRN IVP 07/29/17 05:45 (Tylenol) 650 mg Q6H PRN PO 07/29/17 05:45 (Irais-Colace) 1 tab BID PO 07/29/17 09:00 07/31/17 08:38 (Milk Of Magnesia Liq) 30 ml Q12H PRN PO 07/29/17 05:45 (Senokot) 17.2 mg Q12H PRN PO 07/29/17 05:45 (Dulcolax Supp) 10 mg DAILY PRN RECTAL 07/29/17 05:45 (Lactulose Liq) 30 ml DAILY PRN PO 07/29/17 05:45 (Pepcid Inj) 20 mg Q12H IV PUSH 07/29/17 06:00 07/31/17 05:40 (Deltasone) 40 mg DAILY PO 07/29/17 09:00 07/31/17 08:38 (Morphine Inj) 2 mg Q4H PRN IV PUSH 07/29/17 13:00 07/31/17 12:24 (Roxicodone) 5 mg Q6H PRN PO 07/29/17 17:45 07/31/17 14:22 Potassium Chloride/Sodium Chloride 1,000 ml @ 84 mls/hr [id number] IV 07/30/17 10:00 07/31/17 14:23 (Benadryl) 50 mg Q6H PRN PO 07/30/17 13:15 (Ativan) 1 mg Q6H PRN PO 07/30/17 19:15 07/31/17 14:22 Lactated Ringer's 1,000 ml @ 30 mls/hr Q24H ONCE IV 07/31/17 10:21 08/01/17 10:20 07/31/17 10:08 (K-Phos) 500 mg Q12HR PO 07/31/17 10:30 07/31/17 12:23 (Protonix) 40 mg DAILY PO 07/31/17 10:45 07/31/17 12:24 Miscellaneous Information ALL NURSING DEPARTME... UNSCH PRN .XX 07/31/17 10:35 08/01/17 10:34 (Baby Orajel 7.5% Oral Gel) 1 applic Q6H PRN OROPHARYNG 07/31/17 14:45 UNV (Baby Orajel 7.5% Oral Gel) 1 applic ONCE ONCE OROPHARYNG 07/31/17 14:45 07/31/17 14:46 UNV A/P Problem List: (1) Intractable abdominal pain ICD Code: R10.9 - Unspecified abdominal pain Status: Acute (2) Rectal bleed ICD Code: K62.5 - Hemorrhage of anus and rectum Status: Acute (3) Hypokalemia ICD Code: E87.6 - Hypokalemia Status: Chronic (4) Renal insufficiency ICD Code: N28.9 - Disorder of kidney and ureter, unspecified Status: Acute Assessment and Plan 41-year-old female with a PMH of Lupus, gastroparesis, and Bipolar Disorder who presented with complaints of severe abdominal pain in addition to bright red blood per rectum Generalized pain, worse in the abdomen: Possible lupus flare vs fibromyalgia. Steroids resumed. Pain control with oxycodone and morphine, limit narcotics with history of gastroparesis. Follow up with rheumatology as an outpt. Abdominal pain: History of gastroparesis and esophagitis. CT Abd/Pelvis w/ no dilated loops of bowel, however extrahepatic biliary ductal dilatation. GI consultation appreciated. LFTs and lipase unremarkable. Continue analgesics/ antiemetics as needed. MRCP unremarkable. IV H2 mark with malabsorption. Clear liquids for now. Upper endoscopy showed gastritis with gastric ulcers; biopsy was done from the antrum and duodenitis with duodenal ulcer biopsy from the duodenum. Repeat colonoscopy in AM as poor preparation 07/31. Rectal Bleed: Hemoccult + in the ED. Hgb 9.9/9.6, previously 10.3 on 07/28/17. Monitor H&H. Previous colonoscopy inconclusive secondary to stool. Colonoscopy planned in AM per GI. Hypokalemia: Chronic, secondary to malabsorption. K+ persistently 3.2 after replacement. Give additional IV and oral replacement. Magnesium within normal limits. Follow-up potassium level. Stable 07/31. Dehydration: Creatinine 1.31, previously 1.21 on 07/28/17. Creatinine improved 1.13. IVF. Continue IVF. Follow-up BMP. Anxiety: Could contribute to above symptoms. Valium as needed. Consult psychiatry with history of bipolar disorder and childhood trauma. Tooth pain Chronic. The pt says she has been loosing teeth s/t her illness. She requests Orajel. - Orajel ordered. - recommend evaluation by a dentist. DVT Prophylaxis: SCD/Teds. Discharge Planning D/c once cleared by GI. The pt will then go to [facility] for further work-up. Kane Waters DO Jul 31, 2017 14:49
[2017-07-31 15:31] VITALS: BP 99/65; PULSE 80; RESP 20; TEMP 98.3; O2SAT 96
[2017-07-31] MEDS: BENZOCAINE 7.5% ORAL GEL 9.4 GM TUBE OROPHARYNG PRN ×2 (17:41→17:42)
[2017-07-31 19:59] VITALS: BP 115/73; PULSE 91; RESP 18; TEMP 96.6; O2SAT 98
[2017-07-31 20:14] VITALS: O2SAT 99
[2017-08-01 00:06] VITALS: BP 141/92; PULSE 86; RESP 20; TEMP 98.4; O2SAT 99
[2017-08-01] MEDS: MORPHINE SULFATE 4 MG/ML INJ IV PUSH PRN ×2 (00:30→06:01)
[2017-08-01] MEDS ORDERED: ZOLPIDEM TARTRATE 5 MG TAB PO ONE (03:00)
[2017-08-01 04:12] VITALS: BP 158/96; PULSE 88; RESP 20; TEMP 98.1; O2SAT 100
[2017-08-01] MEDS: LORazepam 1 MG TAB PO PRN ×2 (04:21→13:08)
[2017-08-01] MEDS: BENZOCAINE 7.5% ORAL GEL 9.4 GM TUBE OROPHARYNG PRN ×2 (04:25→13:07)
[2017-08-01 05:47] LABS: BICARBONATE 27.6 MEQ/L (21.0-32.0); MAGNESIUM 2.1 MG/DL (1.5-2.5); POTASSIUM 3.8 MEQ/L (3.5-5.1)
[2017-08-01] MEDS: FAMOTIDINE 20 MG/2 ML VIAL IV PUSH SCH (06:00)
[2017-08-01 08:17] VITALS: BP 120/82; PULSE 79; RESP 16; TEMP 98.2; O2SAT 98
[2017-08-01] MEDS ORDERED: LACTATED RINGER'S 1000 ML INJ 1,000 ML ONE (10:54)
--- NOTE | 2017-08-01 11:43 | GIPROC ---
[facility] [address] [facility]. [facility], [address] COLONOSCOPY PROCEDURE REPORT EXAM DATE: 08/01/2017 PATIENT NAME: Brisa Hernandez MR #: [id number] BIRTHDATE: 1975 ENDOSCOPIST: Alvarado Lucero MD ORDER #: [id number] READING EFFICIENCY COURSE DIRECTOR: Livia Gilbert and Sebastian Daniel STATUS: inpatient INDICATIONS: The patient is a 41 yr old female here for a colonoscopy due to abdominal pain PROCEDURE PERFORMED: Colonoscopy, diagnostic MEDICATIONS: None and Per Anesthesia. PREP QUALITY: poor ESTIMATED BLOOD LOSS: None CONSENT: The patient understands the risks and benefits of the procedure and understands that these risks include, but are not limited to: sedation, allergic reaction, infection, perforation and/or bleeding. Alternative means of evaluation and treatment include, among others: physical exam, x-rays, and/or surgical intervention. The patient elects to proceed with this endoscopic procedure. medical equipment was checked for proper function. Hand hygiene and appropriate measures for infection prevention was taken. After the risks, benefits and alternatives of the procedure were thoroughly explained, Informed consent was verified, confirmed and timeout was successfully executed by the treatment team. A digital exam revealed no abnormalities of the rectum The Pentax [id number] and [id number] endoscope was introduced through the anus and advanced to the cecum, which was identified by both the appendix and ileocecal valve. The instrument was then slowly withdrawn as the colon was fully examined. COLON FINDINGS: Most of the cecum and ascending colon transverse colon covered by stool flushed and mucosa which looked normal under sterile most of the mucosa was not examined because of the amount of stool. Retroflexed views revealed no abnormalities The scope was then completely withdrawn from the patient and the procedure terminated. ADVERSE EVENTS: There were no complications. IMPRESSIONS: 1. Most of the cecum and ascending colon transverse colon covered by stool flushed and mucosa which looked normal under sterile most of the mucosa was not examined because of the amount of stool 2. Retroflexed views revealed no abnormalities 3. Revealed no abnormalities of the rectum RECOMMENDATIONS: Repeat colonoscopy with longer prep RECALL: Return 1 day Colonoscopy Alvarado Lucero MD eSigned: Alvarado Lucero MD 08/01/2017 11:42 AM cc:
[2017-08-01] MEDS ORDERED: DO NOT ADM ANY ANTICOAGULANT DRUGS PRN (11:49)
--- NOTE | 2017-08-01 11:55 | HHI.GIFU ---
Subjective Remarks Still complaining of abdominal discomfort, took the prep yesterday, not very clear Objective Vitals I&O Vital Signs Date Time Temp Pulse Resp B/P (MAP) Pulse Ox O2 Delivery O2 Flow Rate FiO2 08/01/17 08:17 98.2 79 16 120/82 (95) 98 08/01/17 06:11 18 08/01/17 04:12 98.1 88 20 158/96 (116) 100 08/01/17 04:07 18 08/01/17 00:06 98.4 86 20 141/92 (108) 99 07/31/17 20:14 99 07/31/17 19:59 96.6 91 18 115/73 (87) 98 07/31/17 15:31 98.3 80 20 99/65 (76) 96 I/O 07/31/17 07/31/17 07/31/17 08/01/17 08/01/17 08/01/17 07:00 15:00 23:00 07:00 15:00 23:00 Intake Total 530 ml 1915 ml 1000 ml Output Total 1200 ml Balance 530 ml 715 ml 1000 ml Intake Oral 990 ml IV Total 30 ml 925 ml 1000 ml Other 500 ml Output Urine Total 1200 ml # Voids 3 1 1 Laboratory Laboratory Tests Test 08/01/17 04:37 Blood Urea Nitrogen 12 Creatinine 0.77 Random Glucose 102 Calcium Level 8.5 Phosphorus Level 2.4 Magnesium Level 2.1 Sodium Level 142 Potassium Level 3.8 Chloride Level 108 Carbon Dioxide Level 27.6 Anion Gap 6 Estimat Glomerular Filtration Rate 83 Physical Exam HEENT: Normocephalic; atraumatic; no jaundice. NECK: Neck is supple. CHEST: CTA CARDIAC: RRR with no murmur gallop or rubs. ABDOMEN: Nondistended; mild abdominal discomfort and tenderness, bowel sounds are present. Could be related to constipation EXTREMITIES: No clubbing, cyanosis, or edema. SKIN: Normal; no rash; no jaundice. MARKETING PROJECT MANAGER: No focal deficits; alert and oriented x 3 Assessment and Plan Plan ASSESSMENT - Rectal bleed, Patient reports dark red blood intermingled in stool with blood on wipe. Colonoscopy (01/10/17)--Poor prep and solid stool. - Anemia, 9.9 on admission. Hgb values over the last few months range between 8 and 11. - Abdominal pain, chronic lower abdominal pain, unclear etiology. Patient does have history of gastroparesis. Abdominal/Pelvis CT (07/29/17)--1. No dilated loops of small large bowel. 2. Extrahepatic biliary ductal dilatation measuring up to 1.5 cm without calcified gallstone or calcification in the common bile duct. This is a new finding compared to prior CT scans. May consider performing hepatobiliary tract scan to further assess biliary dynamics. HIDA Scan (07/29/17)--Unremarkable exam. 07/30/17--Continues to have abdominal pain that patient localizes at lower abdominal area. Patient has voluntary guarding on palpation of the abdomen. Has not had BM since admission. No active bleeding. MRI MRCP ordered yesterday , but patient has not completed at this time. .6.4 yesterday. Today's labs have not been completed yet. 07/31/2017 continued to have generalized abdominal discomfort, no active bleeding , upper endoscopy showed gastritis with gastric ulcers biopsy was done from the antrum and duodenitis with duodenal ulcer biopsy from the duodenum otherwise normal, colonoscopy poor prep and only was able to go up to 25 cm and there was significant stool prevented me from going any further 08/01/2017 she took the prep, colonoscopy shows significant amount of stool mostly in the transverse and descending colon and cecum mucosa looked okay when I flushed the stool but there was significant amount of stool that may interfere with vision of lesions PLAN - Colonoscopy tomorrow again - Clear liquid diet today -GoLYTELY - NPO after MN tonight -No NSAIDs -Continue PPI - Monitor HH - Further recommendation to follow based on results of above. Alvarado Lucero MD Aug 01, 2017 11:55
[2017-08-01] MEDS ORDERED: MIDAZOLAM HCL 2 MG/2 ML VIAL IV ONE (12:00)
[2017-08-01] MEDS ORDERED: LIDOCAINE HCL 1% PF 5 ML AMPULE OTHER ONE (12:00)
[2017-08-01] MEDS ORDERED: PROPOFOL 200 MG/20 ML AMP IV ONE (12:00)
[2017-08-01] MEDS ORDERED: *morphine SULFATE 8 MG/ML PERIprocedure ONLY ONE ×2 (12:04→12:09)
[2017-08-01] MEDS ORDERED: *HYDROmorphone PF 1 MG VIAL PERIprocedural Use ONLY ONE (12:13)
[2017-08-01 12:55] VITALS: BP 158/107; PULSE 77; RESP 18; TEMP 98.1; O2SAT 100
[2017-08-01] MEDS: POTASSIUM PHOSPHATE MONOBASIC 500 MG TAB PO SCH (13:07)
[2017-08-01] MEDS: PANTOPRAZOLE SOD 40 MG DELAYED RELEASE TAB PO SCH (13:07)
[2017-08-01] MEDS: DOCUSATE SODIUM 50 MG/SENNA 8.6 MG TAB PO SCH (13:08)
[2017-08-01] MEDS: predniSONE 20 MG TAB PO SCH (13:08)
[2017-08-01] MEDS: SODIUM CHLORIDE 0.9% FLUSH 10 ML FLUSH IV FLUSH SCH (13:08)
[2017-08-01] MEDS: NS + KCL 20 MEQ INJ 1,000 ML IV SCH (13:09)
[2017-08-01] MEDS ORDERED: PEG (High)/E-LYTE SOLN 4000 ML BTL PO ONE (14:00)
--- NOTE | 2017-08-01 14:56 | HHI.PR ---
Subjective Remarks The pt complained of generalized pain and increasing tooth pain. She said her Lupus was causing her body pain. She said she would like to finish her GI work- up here before going to [facility]. Objective Vitals Vital Signs Date Time Temp Pulse Resp B/P (MAP) Pulse Ox O2 Delivery O2 Flow Rate FiO2 08/01/17 12:55 98.1 77 18 158/107 (124) 100 08/01/17 12:20 98.4 75 20 133/99 (110) 100 Nasal Cannula 2 08/01/17 12:15 75 20 133/99 (110) 100 Nasal Cannula 2 08/01/17 12:00 75 20 130/92 (105) 98 Nasal Cannula 2 08/01/17 11:50 98.4 75 20 117/73 (88) 98 Nasal Cannula 2 08/01/17 08:17 98.2 79 16 120/82 (95) 98 08/01/17 06:11 18 08/01/17 04:12 98.1 88 20 158/96 (116) 100 08/01/17 04:07 18 08/01/17 00:06 98.4 86 20 141/92 (108) 99 07/31/17 20:14 99 07/31/17 19:59 96.6 91 18 115/73 (87) 98 07/31/17 15:31 98.3 80 20 99/65 (76) 96 I/O 07/31/17 07/31/17 07/31/17 08/01/17 08/01/17 08/01/17 07:00 15:00 23:00 07:00 15:00 23:00 Intake Total 530 ml 1915 ml 1000 ml Output Total 1200 ml Balance 530 ml 715 ml 1000 ml Intake Oral 990 ml IV Total 30 ml 925 ml 1000 ml Other 500 ml Output Urine Total 1200 ml # Voids 3 1 1 Result Diagram: 07/30/17 0810 08/01/17 0437 Imaging Last Impressions Cholangiopancreatography MRI 07/30/17 0000 Signed Impressions: Service Date/Time: Sunday, July 30, 2017 09:39 - CONCLUSION: Normal MRCP examination. There are no findings to indicate bile duct obstruction. Brian Zhou MD Abdomen/Pelvis CT 07/29/17 0102 Signed Impressions: Service Date/Time: Saturday, July 29, 2017 02:08 - CONCLUSION: 1. No dilated loops of small large bowel. 2. Extrahepatic biliary ductal dilatation measuring up to 1.5 cm without calcified gallstone or calcification in the common bile duct. This is a new finding compared to prior CT scans. May consider performing hepatobiliary tract scan to further assess biliary dynamics. Vic Smith MD Hepatobiliary Scan Nuclear Medicine 07/29/17 0000 Signed Impressions: Service Date/Time: Saturday, July 29, 2017 13:10 - CONCLUSION: Unremarkable exam. Kane Tejeda MD Objective Remarks GENERAL: Thin, disheveled. In no acute distress. SKIN: Warm and dry. Port in place on right chest wall. Rash on right side of neck and face resolved. HEENT: Normocephalic. Pupils equal and round. Mucous membranes pink and moist. Poor dentition with many missing teeth. CARDIOVASCULAR: Regular rate and rhythm. No murmur appreciated. RESPIRATORY: No accessory muscle use. Clear to auscultation. Breath sounds equal bilaterally. GASTROINTESTINAL: Abdomen exam shows voluntary guarding, nondistended, nontender. Bowel sounds x4. MUSCULOSKELETAL: No obvious deformities. No clubbing or cyanosis. No edema. NEUROLOGICAL: Awake and alert. No focal neurological deficits. Moves upper and lower extremities spontaneously. Normal speech. PSYCHIATRIC: Flattened affect. Procedures EGD/ colonoscopy Medications and IVs Current Medications Medications (Trade) Dose Ordered Sig/Osito Route Start Time Stop Time Status Last Admin (NS Flush) 2 ml UNSCH PRN IV FLUSH 07/29/17 05:45 (NS Flush) 2 ml BID IV FLUSH 07/29/17 09:00 08/01/17 13:08 (Zofran Inj) 4 mg Q6H PRN IVP 07/29/17 05:45 07/31/17 20:05 (Tylenol) 650 mg Q6H PRN PO 07/29/17 05:45 (Irais-Colace) 1 tab BID PO 07/29/17 09:00 08/01/17 13:08 (Milk Of Magnesia Liq) 30 ml Q12H PRN PO 07/29/17 05:45 (Senokot) 17.2 mg Q12H PRN PO 07/29/17 05:45 (Dulcolax Supp) 10 mg DAILY PRN RECTAL 07/29/17 05:45 (Lactulose Liq) 30 ml DAILY PRN PO 07/29/17 05:45 (Pepcid Inj) 20 mg Q12H IV PUSH 07/29/17 06:00 08/01/17 06:00 (Deltasone) 40 mg DAILY PO 07/29/17 09:00 08/01/17 13:08 (Morphine Inj) 2 mg Q4H PRN IV PUSH 07/29/17 13:00 08/01/17 06:01 Potassium Chloride/Sodium Chloride 1,000 ml @ 84 mls/hr [id number] IV 07/30/17 10:00 08/01/17 13:09 (Benadryl) 50 mg Q6H PRN PO 07/30/17 13:15 (Ativan) 1 mg Q6H PRN PO 07/30/17 19:15 08/01/17 13:08 (K-Phos) 500 mg Q12HR PO 07/31/17 10:30 08/01/17 13:07 (Protonix) 40 mg DAILY PO 07/31/17 10:45 08/01/17 13:07 (Baby Orajel 7.5% Oral Gel) 1 applic Q6H PRN OROPHARYNG 07/31/17 14:45 08/01/17 13:07 Miscellaneous Information ALL NURSING DEPARTME... UNSCH PRN .XX 08/01/17 11:49 08/02/17 11:48 (Roxicodone) 10 mg Q6H PRN PO 08/01/17 17:45 UNV (Morphine Inj) 4 mg ONCE ONCE IV PUSH 08/01/17 14:45 08/01/17 14:46 UNV (Cleocin) 300 mg Q6HR PO 08/01/17 14:45 UNV A/P Problem List: (1) Intractable abdominal pain ICD Code: R10.9 - Unspecified abdominal pain Status: Acute (2) Rectal bleed ICD Code: K62.5 - Hemorrhage of anus and rectum Status: Acute (3) Hypokalemia ICD Code: E87.6 - Hypokalemia Status: Chronic (4) Renal insufficiency ICD Code: N28.9 - Disorder of kidney and ureter, unspecified Status: Acute Assessment and Plan 41-year-old female with a PMH of Lupus, gastroparesis, and Bipolar Disorder who presented with complaints of severe abdominal pain in addition to bright red blood per rectum Generalized pain, worse in the abdomen: Possible lupus flare vs fibromyalgia. Steroids resumed. Pain control with oxycodone and morphine, limit narcotics with history of gastroparesis. Follow up with rheumatology as an outpt. Abdominal pain: History of gastroparesis and esophagitis. CT Abd/Pelvis w/ no dilated loops of bowel, however extrahepatic biliary ductal dilatation. GI consultation appreciated. LFTs and lipase unremarkable. Continue analgesics/ antiemetics as needed. MRCP unremarkable. IV H2 mark with malabsorption. Clear liquids for now. Upper endoscopy showed gastritis with gastric ulcers; biopsy was done from the antrum and duodenitis with duodenal ulcer biopsy from the duodenum. Repeat colonoscopy in AM as poor preparation 07/31 and 08/01. Follow up with [facility] after discharge. Rectal Bleed: Hemoccult + in the ED. Hgb 9.9/9.6, previously 10.3 on 07/28/17. Monitor H&H. Previous colonoscopy inconclusive secondary to stool. Colonoscopy planned in AM per GI. Hypokalemia: Chronic, secondary to malabsorption. K+ persistently 3.2 after replacement. Give additional IV and oral replacement. Magnesium within normal limits. Follow-up potassium level. Stable 08/01. Anxiety Consulted psychiatry with anxiety and childhood trauma. - Valium as needed. Tooth pain Chronic. The pt says she has been loosing teeth s/t her illness. She requests Orajel. - Orajel ordered. - recommend evaluation by a dentist. - start PO clindamycin. DVT Prophylaxis: SCD/Teds. Discharge Planning D/c once cleared by GI. The pt will then go to [facility] for further work-up. Kane Waters DO Aug 01, 2017 14:56
[2017-08-01] MEDS ORDERED: OXYC-392 PO (15:12)
[2017-08-01] MEDS ORDERED: CLIN150 PO (15:12)
[2017-08-01] MEDS ORDERED: LORA-474 PO (15:12)
--- NOTE | 2017-08-01 15:13 | HHI.DCPOC ---
Discharge Care Plan Diagnosis: (1) Post traumatic stress disorder (PTSD) (2) Intractable abdominal pain (3) Rectal bleed (4) Hypokalemia (5) Exacerbation of systemic lupus erythematosus Goals to Promote Your Health * To prevent worsening of your condition and complications * To maintain your health at the optimal level Directions to Meet Your Goals Take your medications as prescribed Follow your dietary instruction Follow activity as directed Keep your appointments as scheduled Take your immunizations and boosters as scheduled If your symptoms worsen call your PCP, if no PCP go to Urgent Care Center or Emergency Room Smoking is Dangerous to Your Health. Avoid second hand smoke Call the 24-hour hour crisis hotline for domestic abuse at Kane Waters DO Aug 01, 2017 15:13
--- NOTE | 2017-08-01 15:25 | HHI.GIFU ---
Subjective Remarks Resting in bed. C/O right jaw pain and ongoing lower abdominal pain. States she was passing large amount of liquid stool yesterday. Has an appointment with GI tomorrow at [facility]. Objective Vitals I&O Vital Signs Date Time Temp Pulse Resp B/P (MAP) Pulse Ox O2 Delivery O2 Flow Rate FiO2 08/01/17 12:55 98.1 77 18 158/107 (124) 100 08/01/17 12:20 98.4 75 20 133/99 (110) 100 Nasal Cannula 2 08/01/17 12:15 75 20 133/99 (110) 100 Nasal Cannula 2 08/01/17 12:00 75 20 130/92 (105) 98 Nasal Cannula 2 08/01/17 11:50 98.4 75 20 117/73 (88) 98 Nasal Cannula 2 08/01/17 08:17 98.2 79 16 120/82 (95) 98 08/01/17 06:11 18 08/01/17 04:12 98.1 88 20 158/96 (116) 100 08/01/17 04:07 18 08/01/17 00:06 98.4 86 20 141/92 (108) 99 07/31/17 20:14 99 07/31/17 19:59 96.6 91 18 115/73 (87) 98 07/31/17 15:31 98.3 80 20 99/65 (76) 96 I/O 07/31/17 07/31/17 07/31/17 08/01/17 08/01/17 08/01/17 07:00 15:00 23:00 07:00 15:00 23:00 Intake Total 530 ml 1915 ml 1000 ml Output Total 1200 ml Balance 530 ml 715 ml 1000 ml Intake Oral 990 ml IV Total 30 ml 925 ml 1000 ml Other 500 ml Output Urine Total 1200 ml # Voids 3 1 1 Laboratory Laboratory Tests Test 08/01/17 04:37 Blood Urea Nitrogen 12 Creatinine 0.77 Random Glucose 102 Calcium Level 8.5 Phosphorus Level 2.4 Magnesium Level 2.1 Sodium Level 142 Potassium Level 3.8 Chloride Level 108 Carbon Dioxide Level 27.6 Anion Gap 6 Estimat Glomerular Filtration Rate 83 Imaging Last Impressions Cholangiopancreatography MRI 07/30/17 0000 Signed Impressions: Service Date/Time: Sunday, July 30, 2017 09:39 - CONCLUSION: Normal MRCP examination. There are no findings to indicate bile duct obstruction. Brian Zhou MD Abdomen/Pelvis CT 07/29/17 0102 Signed Impressions: Service Date/Time: Saturday, July 29, 2017 02:08 - CONCLUSION: 1. No dilated loops of small large bowel. 2. Extrahepatic biliary ductal dilatation measuring up to 1.5 cm without calcified gallstone or calcification in the common bile duct. This is a new finding compared to prior CT scans. May consider performing hepatobiliary tract scan to further assess biliary dynamics. Vic Smith MD Hepatobiliary Scan Nuclear Medicine 07/29/17 0000 Signed Impressions: Service Date/Time: Saturday, July 29, 2017 13:10 - CONCLUSION: Unremarkable exam. Kane Tejeda MD Physical Exam HEENT: Normocephalic; atraumatic; no jaundice. NECK: Neck is supple. CHEST: CTA CARDIAC: RRR with no murmur gallop or rubs. ABDOMEN: Nondistended; mild abdominal discomfort and tenderness, bowel sounds are present. SKIN: Normal; no rash; no jaundice. 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 EGD/Colonoscopy (07/31/17)--> 1. Severe gastritis, multiple ulcers in the antrum biopsy was done from the antrum 2. Severe duodenitis, few ulcers in the duodenal bulb labs he was done 3. Normal endoscopy otherwise 4. Retroflexed views revealed no abnormalities 1. Exam to rectosigmoid area significant amount of stool unable to pass the scope beyond that procedure terminated 2. Retroflexed views revealed no abnormalities 3. Revealed no abnormalities of the rectum. Plan was for possible repeat colonoscopy, but patient has appointment at [facility] tomorrow for her chronic abdominal pain, unclear etiology. At this point, she is not bleeding and she has her chronic abdominal pain. We would recommend that she could be discharged home so that she could keep her appointment for tomorrow. - Abdominal pain, chronic lower abdominal pain, unclear etiology. Patient does have history of gastroparesis. Abdominal/Pelvis CT (07/29/17)--1. No dilated loops of small large bowel. 2. Extrahepatic biliary ductal dilatation measuring up to 1.5 cm without calcified gallstone or calcification in the common bile duct. This is a new finding compared to prior CT scans. May consider performing hepatobiliary tract scan to further assess biliary dynamics. HIDA Scan (07/29/17)--Unremarkable exam. MRCP (07/30/17)----> Normal MRCP examination. There are no findings to indicate bile duct obstruction. FU [facility] as outpatient (appointment scheduled for tomorrow). - Constipation, chronic. Recommend daily Miralax. PLAN - Okay to d/c home, has appointment at [facility] for tomorrow - FU [facility] as outpt as scheduled - Miralax daily - PPI - No NSAIDs - Pt seen and examined by Dr. Lucero and myself and this note is written on his behalf Oneida Fraga Aug 01, 2017 15:25
[2017-08-01] MEDS ORDERED: POTASSIUM CHLORIDE 10 MEQ CAP PO ONE (15:30)
[2017-08-01] MEDS ORDERED: MORPHINE SULFATE 4 MG/ML INJ IV PUSH ONE (15:30)
--- NOTE | 2017-08-01 15:31 | HHI.DS ---
Discharge Summary Admission Date Jul 29, 2017 at 05:31 Discharge Date: Aug 01, 2017 Admitting Diagnosis abdominal pain; hypokalemia; hematochezia (1) Intractable abdominal pain ICD Code: R10.9 - Unspecified abdominal pain Status: Acute (2) Rectal bleed ICD Code: K62.5 - Hemorrhage of anus and rectum Status: Acute (3) Hypokalemia ICD Code: E87.6 - Hypokalemia Status: Chronic (4) Renal insufficiency ICD Code: N28.9 - Disorder of kidney and ureter, unspecified Status: Acute Procedures EGD/ colonoscopy Brief History - From Admission This is a 41-year-old female with a PMH of Lupus, IBS and Bipolar Disorder that is the ER with complaints of severe abdominal pain in addition to bright red blood per rectum. Presented to ER w/ complaints of abdominal pain 07/28/17, found to have K+ 3.0 which is chronic secondary to her h/o Malabsorption, s/p treatment and d/c'd home. Today w/ recurrent abdominal pain and BRBPR. On arrival, BP 141/85, HR 80, O2 sat RA, Temp 99.7. HEMOGLOBIN 9.9, PRODUCING 10.3 ON 07/28/17. CREATININE 1.31, PRODUCING 1.21 ON 07/28/17. K+ 3.2. Lactic Acid 1.7. UA negative. CT Abd/Pelvis w/ no deficits of small or large bowel, extrahepatic biliary ductal dilatation up to 1.5 cm without stone, consider hepatobiliary tract scan to further assess. CBC/BMP: 07/30/17 0810 08/01/17 0437 Significant Findings Laboratory Tests Test 07/30/17 08:10 07/30/17 16:34 07/31/17 05:45 08/01/17 04:37 Red Blood Count 3.60 MIL/MM3 (4.00-5.30) Hemoglobin 10.4 GM/DL (11.6-15.3) Hematocrit 31.6 % (35.0-46.0) Monocytes (%) (Auto) 8.1 % (0.0-8.0) Alkaline Phosphatase 38 U/L (45-117) Aspartate Amino Transf (AST/SGOT) 11 U/L (15-37) Potassium Level 2.9 MEQ/L (3.5-5.1) 3.2 MEQ/L (3.5-5.1) Anion Gap 4 MEQ/L (5-15) Estimat Glomerular Filtration Rate 66 ML/MIN (>89) 54 ML/MIN (>89) 76 ML/MIN (>89) 83 ML/MIN (>89) Creatinine 1.11 MG/DL (0.50-1.00) Random Glucose 149 MG/DL (74-106) 118 MG/DL (74-106) Phosphorus Level 1.3 MG/DL (2.5-4.9) 2.4 MG/DL (2.5-4.9) Chloride Level 108 MEQ/L (98-107) Imaging Last Impressions Cholangiopancreatography MRI 07/30/17 0000 Signed Impressions: Service Date/Time: Sunday, July 30, 2017 09:39 - CONCLUSION: Normal MRCP examination. There are no findings to indicate bile duct obstruction. Brian Zhou MD Abdomen/Pelvis CT 07/29/17 0102 Signed Impressions: Service Date/Time: Saturday, July 29, 2017 02:08 - CONCLUSION: 1. No dilated loops of small large bowel. 2. Extrahepatic biliary ductal dilatation measuring up to 1.5 cm without calcified gallstone or calcification in the common bile duct. This is a new finding compared to prior CT scans. May consider performing hepatobiliary tract scan to further assess biliary dynamics. Vic Smith MD Hepatobiliary Scan Nuclear Medicine 07/29/17 0000 Signed Impressions: Service Date/Time: Saturday, July 29, 2017 13:10 - CONCLUSION: Unremarkable exam. Kane Tejeda MD PE at Discharge GENERAL: Thin, disheveled. In no acute distress. SKIN: Warm and dry. Port in place on right chest wall. Rash on right side of neck and face resolved. HEENT: Normocephalic. Pupils equal and round. Mucous membranes pink and moist. Poor dentition with many missing teeth. CARDIOVASCULAR: Regular rate and rhythm. No murmur appreciated. RESPIRATORY: No accessory muscle use. Clear to auscultation. Breath sounds equal bilaterally. GASTROINTESTINAL: Abdomen exam shows voluntary guarding, nondistended, nontender. Bowel sounds x4. MUSCULOSKELETAL: No obvious deformities. No clubbing or cyanosis. No edema. NEUROLOGICAL: Awake and alert. No focal neurological deficits. Moves upper and lower extremities spontaneously. Normal speech. PSYCHIATRIC: Flattened affect. Hospital Course Abdominal pain Generalized pain, worse in the abdomen. Steroids resumed for lupus flare. She has a history of gastroparesis and esophagitis. CT Abd/Pelvis: No dilated loops of small large bowel; Extrahepatic biliary ductal dilatation measuring up to 1.5 cm without calcified gallstone or calcification in the common bile duct. GI was consulted. She received analgesics/antiemetics as needed. MRCP was unremarkable. Upper endoscopy showed gastritis with gastric ulcers; biopsy was done from the antrum and duodenitis with duodenal ulcer biopsy from the duodenum. She has a gastroenterology appointment at [facility] 08/02 and will be discharged with follow-up there. She will be discharged with pain meds to get her to that appointment. Rectal bleed Hemoccult + in the ED. Hgb 9.9/9.6, previously 10.3 on 07/28/17. Colonoscopy with poor preparation x 2 as above. Follow up at [facility]. Hypokalemia Chronic. Given additional IV and oral replacement. She will continue her home KCl supplementation. She will have follow up labs as an outpt. Anxiety/ PTSD Evaluated by psychiatry. Ativan was recommended as needed. Tooth pain The pt has poor dentition. She will be discharged with PO clindamycin for possible infection. Recommend evaluation by a dentist. SLE The pt endorses diffuse body pain and says they are s/t lupus. Continue prednisone. Recommend follow up with rheumatology. Pt Condition on Discharge: Stable Discharge Disposition: Discharge Home Discharge Time: > 30 minutes Discharge Instructions DIET: Follow Instructions for: As Tolerated, No Restrictions Activities you can perform: Weight Bearing as Marisol Follow up Referrals: Gastroenterology - 08/02/17 PCP Follow-up - 1 Week New Orders: COMP MET PROF (CMP) New Medications: Clindamycin (Cleocin) 150 Mg Cap 300 MG PO Q6HR for Tooth infection for 7 Days, CAP Lorazepam (Ativan) 1 Mg Tab 1 MG PO Q6H PRN for ANXIETY, #6 TAB Oxycodone (Oxycodone) 5 Mg Tab 5 MG PO Q6H PRN for pain, #6 TAB Continued Medications: Cholecalciferol (Vitamin D3) 10,000 Unit Cap 77850 UNITS PO Q3D @ HS for Nutritional Supplement, #1 BOTTLE 0 Refills Ferrous Sulfate (Ferrous Sulfate) 325 Mg (65 Mg Iron) Tablet 325 MG PO BIDPC for Nutritional Supplement, #60 TAB 0 Refills Magnesium Oxide (Magnesium Oxide) 400 Mg Tab 400 MG PO DAILY for Nutritional Supplement, TAB 0 Refills Pantoprazole (Pantoprazole) 40 Mg Tab 40 MG PO HS for Reflux, #30 TAB 0 Refills Potassium Chloride ER (Potassium Chloride ER) 20 Meq Tab 40 MEQ PO TID for Electrolyte Replacement, #90 TAB 0 Refills Potassium Phosphate Monobasic (K-Phos) 500 Mg Tab 1000 MG PO BID for Electrolyte Replacement, #60 TAB 3 Refills Prednisone (Prednisone) 20 Mg Tab 40 MG PO DAILY for Control Inflammation, #25 TAB 0 Refills Take 40mg (2 tabs) daily x7 days, then 20mg (1 tab) daily x7 days, then 10mg (1/2 tab) daily x7days, then stop. Discontinued Medications: Diazepam (Valium) 10 Mg Tab 10 MG PO Q8HR PRN for SEIZURES, TAB 0 Refills Oxycodone (Oxycodone) 5 Mg Cap 15 MG PO Q6H PRN for PAIN, #84 CAP 0 Refills Tramadol (Tramadol) 50 Mg Tab 50 MG PO Q6H PRN for PAIN, #7 TAB 0 Refills Kane Waters DO Aug 01, 2017 15:31
[2017-08-01] MEDS ORDERED: CLINDAMYCIN 150 MG CAP PO SCH (16:00)
[2017-08-02] MEDS ORDERED: POLYETHYLENE GLYCOL 17 GM PKG PO SCH (09:00)
== END 2017-08-01 16:20 | disposition home or self-care (01) ==
LOC: NEPC 00:18 → NEDA 05:31 → NEPGCP 06:43
PROVIDERS: ADMIT Hospitalist; ATTEND Hospitalist
DX: R10.30 Lower abdominal pain, unspecified (principal); K62.5 Hemorrhage of anus and rectum; E87.6 Hypokalemia; N28.9 Disorder of kidney and ureter, unspecified; D64.9 Anemia, unspecified; K29.80 Duodenitis without bleeding; K29.50 Unspecified chronic gastritis without bleeding; K25.9 Gastric ulcer, unspecified as acute or chronic, without hemorrhage or perforation; K59.00 Constipation, unspecified; K90.9 Intestinal malabsorption, unspecified; R94.31 Abnormal electrocardiogram [ECG] [EKG]; I10 Essential (primary) hypertension; L93.0 Discoid lupus erythematosus; K21.9 Gastro-esophageal reflux disease without esophagitis; G43.909 Migraine, unspecified, not intractable, without status migrainosus; G40.802 Other epilepsy, not intractable, without status epilepticus; R11.0 Nausea
CPT/HCPCS: 00740; 00810; 43239; 45330; 45378; 74177; 74181; 76377; 78226; 80048; 80053; 81001; 83605; 83690; 83735; 84100; 84703; 85025; 85027; 85610; 85730; 88305; 88312; 93005; 96361; 96365; 96366; 96367; 96375; 96376; 99285; A9537; G0378; J1170; J2250; J2270; J2405; J2930; J3010; J3480; J7030; J7120; J7512; Q0163; Q9967

== ENCOUNTER 2017-08-09 08:37 | Inpatient (IN) | payer OTHER ==
[~2017-08-09] VITALS: Ht 175.3 cm; Wt 65.6 kg
[~2017-08-09 08:37] MED LIST changes: -BACT800T5 PO; +CLIN150 PO; -DIAZ5 PO; +LORA-474 PO; +OXYC-392 PO; -OXYC1CAP PO; -TRAM50TA PO
[2017-08-09 08:43] VITALS: BP 148/77; PULSE 89; RESP 16; TEMP 99.2; O2SAT 99
[2017-08-09] MEDS ORDERED: SODIUM CHLORIDE 0.9% FLUSH 10 ML FLUSH IVF PRN (09:00)
[2017-08-09] MEDS ORDERED: SODIUM CHLORID 0.9% 500 ML INJ 500 ML IV ONE (09:00)
--- NOTE | 2017-08-09 09:09 | PD ---
HPI Chief Complaint: Abnormal Results Time Seen by Provider: 09:07 Travel History International Travel<30 days: No Contact w/Intl Traveler<30days: No Traveled to known affect area: No History of Present Illness HPI 41-year-old female presents with feeling like her potassium is really low. She states when she feels like her potassium gets low it will make her chest feel funny and she'll just feel abnormal all over. She states she called her primary and they advised her to come here to get her potassium checked. She states that she was here she followed with [facility] and is working on getting a colonoscopy with them soon. She states she doesn't have any other symptoms other than her typical symptoms that she gets with her lupus and when her potassium is low. She denies any chest pain currently. She denies any other concurrent complaints. PFSH Past Medical History Arthritis: No Asthma: No Atrial Fibrillation: No Autoimmune Disease: Yes (LUPUS ) Blood Disorders: No Bipolar Disorder: Yes Anxiety: Yes Depression: No Heart Rhythm Problems: Yes (HYPOKALEMIA RELATED AFIB) Cancer: Yes (APPENDIX 2002) Cardiovascular Problems: No High Cholesterol: No Chemotherapy: No Chest Pain: No Congestive Heart Failure: No COPD: No Cerebrovascular Accident: No Diabetes: No Diminished Hearing: No Endocrine: No Gastrointestinal Disorders: Yes GERD: Yes Genitourinary: Yes (RECURRENT UTI'S, NEPHRITIS) Headaches: Yes Hiatal Hernia: No Heparin Induced Thrombocytopen: No Hypertension: No Immune Disorder: Yes (CROHN'S) Implanted Vascular Access Dvce: No Kidney Stones: Yes Musculoskeletal: No Neurologic: Yes (EPILEPSY) Psychiatric: No Reproductive: No Respiratory: No Immunizations Current: Yes Migraines: Yes Pneumonia: Yes Radiation Therapy: No Renal Failure: No Seizures: Yes (juvenile epilepsy) Sickle Cell Disease: No Sleep Apnea: No Thyroid Disease: No Ulcer: Yes (Pt states she has severe ulcers from throat to rectum) PNEUMOCCOCAL Vaccine (Year): 3 : 2 Para: 1 Miscarriage: 1 : 0 Ectopic : Yes (AT 17 YEARS OF AGE) Ovarian Cysts: Yes Past Surgical History Abdominal Surgery: Yes (multiple Laps) AICD: No Appendectomy: Yes Arteriovenous Shunt: No Body Medical Devices: RIGHT SUBCLAVIAN SMART PORT VAD Cardiac Surgery: No Ear Surgery: No Endocrine Surgery: Yes Eye Surgery: No Genitourinary Surgery: Yes (Interstitial cystitis) Gynecologic Surgery: Yes Hysterectomy: Yes (PARTIAL) Insulin Pump: No Joint Replacement: No Neurologic Surgery: No Oral Surgery: Yes (Removal of abscess) Pacemaker: No Thoracic Surgery: No Other Surgery: Yes (endometriosis, ovarian cyst,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,appendectomy, cervix partial re) Social History Alcohol Use: No (PT DENIES ) Tobacco Use: No Substance Use: No Allergies-Medications (Allergen,Severity, Reaction): Coded Allergies: Fish Containing Products (Unverified Allergy, Severe, SWELLING IN THROAT, SOB, 08/09/17) cephalexin (Unverified Allergy, Severe, RASH,SWELLING, 08/09/17) ketorolac (Unverified Allergy, Severe, RASH, 08/09/17) penicillin G (Unverified Allergy, Severe, RASH,SWELLING, 08/09/17) prochlorperazine (Unverified Allergy, Mild, DYSTONIC REACTION, 08/09/17) promethazine (Unverified Allergy, Mild, DYSTONIC REACTION, 08/09/17) gabapentin (Unverified Adverse Reaction, Severe, SEIZURES, 08/09/17) *MDRO Multi-Drug Resistant Organism (Verified Adverse Reaction, Unknown, Cleared - 04/21/16, 08/09/17) MRSA axilla/ breast 2009 MRSA PCR (nares) negative - 04/19/16 & 04/21/16 Cleared per Infection Control Reported Meds & Prescriptions Reported Meds & Active Scripts Active Cleocin (Clindamycin HCl) 150 Mg Cap 300 Mg PO Q6HR 7 Days Ferrous Sulfate 325 Mg (65 Mg Iron) Tablet 325 Mg PO BIDPC Prednisone 20 Mg Tab 40 Mg PO DAILY Take 40mg (2 tabs) daily x7 days, then 20mg (1 tab) daily x7 days, then 10mg (1/2 tab) daily x7days, then stop. Potassium Chloride ER (Potassium Chloride) 20 Meq Tab 40 Meq PO TID K-Phos (Potassium Phosphate Monobasic) 500 Mg Tab 1,000 Mg PO BID Pantoprazole (Pantoprazole Sodium) 40 Mg Tab 40 Mg PO HS Vitamin D3 (Cholecalciferol) 10,000 Unit Cap 20,000 Units PO Q3D @ HS Reported Carafate (Sucralfate) 1 Gram Tab 1 Gm PO TID On empty stomach Magnesium Oxide 400 Mg Tab 400 Mg PO DAILY Review of Systems Except as stated in HPI: all other systems reviewed are Neg Physical Exam Narrative GENERAL: Well-nourished, well-developed patient. Well-appearing SKIN: Warm and dry. HEAD: Normocephalic and atraumatic. EYES: No injection or drainage. ENT: No nasal drainage noted. Poor dentition NECK: Supple, trachea midline. CARDIOVASCULAR: Regular rate and rhythm RESPIRATORY: Breath sounds equal bilaterally. No accessory muscle use. GASTROINTESTINAL: Abdomen soft, non-tender, nondistended. EXTREMITIES: No edema. NEUROLOGICAL: Awake and alert. Motor and sensory grossly within normal limits. Normal speech. Data Data Last Documented VS Vital Signs Date Time Temp Pulse Resp B/P (MAP) Pulse Ox O2 Delivery O2 Flow Rate FiO2 08/09/17 08:43 99.2 89 16 148/77 (100) 99 Room Air Orders Orders Complete Blood Count With Diff (08/09/17 08:51) Comprehensive Metabolic Panel (08/09/17 08:51) Urinalysis - C+S If Indicated (08/09/17 08:51) Lipase (08/09/17 08:51) Iv Access Insert/Monitor (08/09/17 08:51) Oximetry (08/09/17 08:51) Electrocardiogram (08/09/17 08:51) Ckmb (Isoenzyme) Profile (08/09/17 08:51) Magnesium (Mg) (08/09/17 08:51) Prothrombin Time / Inr (Pt) (08/09/17 08:51) Act Partial Throm Time (Ptt) (08/09/17 08:51) Troponin I (08/09/17 08:51) Chest, Single Ap (08/09/17 08:51) Sodium Chloride 0.9% Flush (Ns Flush) (08/09/17 09:00) Sodium Chlorid 0.9% 500 Ml Inj (Ns 500 M (08/09/17 09:00) Ed Urine Pregnancytest Poc (08/09/17 08:51) CKMB (08/09/17 09:45) CKMB% (08/09/17 09:45) Sodium Chlor 0.9% 1000 Ml Inj (Ns 1000 M (08/09/17 11:00) Potassium Chloride Eff (K-Lyte Cl Eff) (08/09/17 11:00) Admit Order (Ed Use Only) (08/09/17 11:24) Labs Laboratory Tests Test 08/09/17 09:45 White Blood Count 8.3 TH/MM3 Red Blood Count 3.65 MIL/MM3 Hemoglobin 10.6 GM/DL Hematocrit 31.7 % Mean Corpuscular Volume 86.7 FL Mean Corpuscular Hemoglobin 29.1 PG Mean Corpuscular Hemoglobin Concent 33.6 % Red Cell Distribution Width 14.9 % Platelet Count 204 TH/MM3 Mean Platelet Volume 7.9 FL Neutrophils (%) (Auto) 69.6 % Lymphocytes (%) (Auto) 18.3 % Monocytes (%) (Auto) 7.7 % Eosinophils (%) (Auto) 3.3 % Basophils (%) (Auto) 1.1 % Neutrophils # (Auto) 5.8 TH/MM3 Lymphocytes # (Auto) 1.5 TH/MM3 Monocytes # (Auto) 0.6 TH/MM3 Eosinophils # (Auto) 0.3 TH/MM3 Basophils # (Auto) 0.1 TH/MM3 CBC Comment DIFF FINAL Differential Comment Prothrombin Time 10.7 SEC Prothromb Time International Ratio 1.0 RATIO Activated Partial Thromboplast Time 20.8 SEC Urine Color LIGHT-YELLOW Urine Turbidity CLEAR Urine pH 6.0 Urine Specific [place] 1.014 Urine Protein NEG mg/dL Urine Glucose (UA) NEG mg/dL Urine Ketones NEG mg/dL Urine Occult Blood NEG Urine Nitrite NEG Urine Bilirubin NEG Urine Urobilinogen LESS THAN 2.0 MG/DL Urine Leukocyte Esterase NEG Urine WBC 1 /hpf Urine Squamous Epithelial Cells 1 /hpf Urine Transitional Epithelial Cells <1 /hpf Urine Hyaline Casts 3 /lpf Microscopic Urinalysis Comment CULT NOT INDICATED Blood Urea Nitrogen 40 MG/DL Creatinine 2.19 MG/DL Random Glucose 93 MG/DL Total Protein 6.4 GM/DL Albumin 3.2 GM/DL Calcium Level 8.7 MG/DL Magnesium Level 1.9 MG/DL Alkaline Phosphatase 39 U/L Aspartate Amino Transf (AST/SGOT) 17 U/L Alanine Aminotransferase (ALT/SGPT) 14 U/L Total Bilirubin 0.1 MG/DL Sodium Level 138 MEQ/L Potassium Level 2.6 MEQ/L Chloride Level 102 MEQ/L Carbon Dioxide Level 25.9 MEQ/L Anion Gap 10 MEQ/L Estimat Glomerular Filtration Rate 25 ML/MIN Total Creatine Kinase 324 U/L Creatine Kinase MB 6.0 NG/ML Creatine Kinase MB % 1.9 % Troponin I LESS THAN 0.02 NG/ML Lipase 65 U/L MDM Medical Decision Making Medical Screen Exam Complete: Yes Emergency Medical Condition: Yes Medical Record Reviewed: Yes (past history confirmed) Interpretation(s) CBC & BMP Diagram 08/09/17 09:45 Total Protein 6.4, Albumin 3.2 L, Calcium Level 8.7, Magnesium Level 1.9, Alkaline Phosphatase 39 L, Aspartate Amino Transf (AST/SGOT) 17, Alanine Aminotransferase (ALT/SGPT) 14, Total Bilirubin 0.1 L Last 24 hours Impressions Chest X-Ray 08/09/17 0851 Signed Impressions: Service Date/Time: Wednesday, August 09, 2017 09:03 - CONCLUSION: 1. No acute cardiopulmonary disease. Albert Villanueva MD EKG #1 had significant artifact so it was repeated and showed sinus rhythm with prolonged QT interval without STEMI criteria Differential Diagnosis Hypokalemia, hypo-magnesium, renal insufficiency, musculoskeletal, pneumothorax , pneumonia... Narrative Course Will check blood work, chest x-ray, EKG and monitor ED workup shows acute renal failure and hypokalemia. Will bolus with IV fluids and 50 mEq of potassium ordered. Given concurrent will need admission to the hospital for further care, patient updated Physician Communication Physician Communication dr roa agrees to admit Diagnosis Primary Impression: Acute renal failure Qualified Codes: N17.9 - Acute kidney failure, unspecified Additional Impression: Hypokalemia Admitting Information Admitting Physician Requests: Admit Rae Smith MD Aug 09, 2017 09:09
[2017-08-09] MEDS ORDERED: CARA1TAB6 PO (09:52)
--- NOTE | 2017-08-09 09:55 | RADRPT ---
EXAM DATE/TIME: 08/09/2017 09:03 [facility] COMPARISON: CHEST SINGLE AP, June 29, 2017, 21:41. INDICATIONS : Center chest pain, tightness, and whole body pain. MEDICAL HISTORY : Hypercholesterolemia. Gastroesophageal reflux disease. Seizures. Dizziness. Syncope. Headache.M igraine. Numbness. Tachycardia. Pnemonia. Ulcer. Ovarian cysts. Ectopic . Kidney stones. Lup us. Endometriosis. Cancer. SURGICAL HISTORY : Appendectomy. Abscess removal. Multiple laparscopy. Partial oopherectomy and salpingectomy. ENCOUNTER: Initial ACUITY: 1 day PAIN SCORE: 8/10 LOCATION: Bilateral chest FINDINGS: The cardiac silhouette is normal in transverse diameter. The lungs are free of acute parenchymal opac ity. No effusions are identified. [id number] is in place via right internal jugular approach with its tip in the superior vena cava. CONCLUSION: 1. No acute cardiopulmonary disease. Albert Villanueva MD on August 09, 2017 at 9:54 Board Certified Radiologist. This report was verified electronically.
[2017-08-09 10:23] LABS: AUTOMATED NEUTROPHIL # 5.8 TH/MM3 (1.8-7.7); BASOPHIL # 0.1 TH/MM3 (0-0.2); BASOPHIL % 1.1 % (0.0-2.0); EOSINOPHIL # 0.3 TH/MM3 (0-0.4); EOSINOPHIL % 3.3 % (0.0-4.0); HEMATOCRIT 31.7 % (35.0-46.0); HEMO FLAGS DIFF FINAL; LYMPH % 18.3 % (9.0-44.0); LYMPHOCYTE # 1.5 TH/MM3 (1.0-4.8); MEAN CELL VOLUME 86.7 FL (80.0-100.0); MEAN CORPUSCULAR HEMOGLOBIN 29.1 PG (27.0-34.0); MEAN CORPUSCULAR HGB CONC 33.6 % (32.0-36.0); MONO % 7.7 % (0.0-8.0); NEUT % 69.6 % (16.0-70.0); PLATELET COUNT 204 TH/MM3 (150-450); RED BLOOD COUNT 3.65 MIL/MM3 (4.00-5.30); RED CELL DISTRIBUTION WIDTH 14.9 % (11.6-17.2); WHITE BLOOD COUNT 8.3 TH/MM3 (4.0-11.0)
[2017-08-09 10:29] LABS: BLOOD, URINE NEG (NEG); GLUCOSE,URINE NEG (NEG); HYALINE CAST, URINE 3 /lpf (RARE); KETONE, URINE NEG (NEG); NITRITE,URINE NEG (NEG); SQUAMOUS EPITHELIAL CELL URINE 1 /hpf (0-5); TRANSITIONAL EPI CELLS, URINE <1 /hpf; URINE COLOR LIGHT-YELLOW (YELLW/STRAW)
[2017-08-09 10:35] LABS: APTT (PATIENT) 20.8 SEC (24.3-30.1); PROTHROMBIN TIME - PATIENT 10.7 SEC (9.8-11.6)
[2017-08-09 10:36] LABS: COMMENT (UR) CULT NOT INDICATED; CULTURE IF INDICATED CULT NOT INDICATED
[2017-08-09 10:46] LABS: ALKALINE PHOSPHATASE 39 U/L (45-117); ALT (GPT) 14 U/L (10-53); ANION GAP 10 MEQ/L (5-15); AST (GOT) 17 U/L (15-37); BICARBONATE 25.9 MEQ/L (21.0-32.0); BLOOD UREA NITROGEN 40 MG/DL (7-18); CHLORIDE 102 MEQ/L (98-107); CREATINE KINASE 324 U/L (26-192); GLOMERULAR FILTRATION RATE 25 ML/MIN (>89); MAGNESIUM 1.9 MG/DL (1.5-2.5); SODIUM (NA) 138 MEQ/L (136-145); TOTAL BILIRUBIN ADULT 0.1 MG/DL (0.2-1.0)
[2017-08-09 10:52] LABS: POTASSIUM 2.6 MEQ/L (3.5-5.1)
[2017-08-09] MEDS ORDERED: SODIUM CHLOR 0.9% 1000 ML INJ 1,000 ML IV ONE (11:00)
[2017-08-09] MEDS ORDERED: POTASSIUM CHLORIDE 25 MEQ EFFERVESCENT TAB PO ONE (11:00)
[2017-08-09] MEDS ORDERED: SENNOSIDES 8.6 MG TAB PO PRN (12:00)
[2017-08-09] MEDS ORDERED: ONDANSETRON HCL 4 MG/2 ML VIAL IVP PRN (12:00)
[2017-08-09] MEDS ORDERED: MAGNESIUM HYDROXIDE SUSP 30 ML CUP PO PRN (12:00)
[2017-08-09] MEDS ORDERED: LACTULOSE SYRUP 20 GM/30 ML CUP PO PRN (12:00)
[2017-08-09] MEDS ORDERED: NALOXONE HCL 0.4 MG/ML AMP IV PUSH PRN (12:00)
[2017-08-09] MEDS ORDERED: BISACODYL 10 MG SUPP RECTAL PRN (12:00)
[2017-08-09] MEDS ORDERED: ACETAMINOPHEN 325 MG TAB PO PRN ×2 (12:00)
--- NOTE | 2017-08-09 12:04 | HHI.HP ---
[facility] Service [facility] Primary Care Physician Neeraj Gilbert D.O. Admission Diagnosis acute renal failure, hypokalemia Diagnoses: (1) Acute renal failure (2) Hypokalemia Chief Complaint: Low potassium Travel History International Travel<30 Days: No Contact w/Intl Traveler <30 Da: No Traveled to Known Affected Are: No History of Present Illness The patient is a 41-year-old female with known history of hypokalemia secondary to poor absorption. She presented to the emergency department stating that she felt as if her potassium was low. She states that when her potassium gets low, she develops cramping pains throughout her body as well as shortness of breath. She states that this has been worsening over the past 2 days. She is not currently short of breath and denies chest pain. She denies fever, chills, night sweats. Review of Systems Constitutional: DENIES: Fever, Chills, Night Sweats Eyes: DENIES: Blurred vision, Vision loss Ears, nose, mouth, throat: DENIES: Hearing loss Respiratory: COMPLAINS OF: Shortness of breath, DENIES: Cough, Wheezing, Sputum production Cardiovascular: DENIES: Chest pain, Palpitations, Dyspnea on Exertion, Lower Extremity Edema Gastrointestinal: COMPLAINS OF: Abdominal pain, DENIES: Constipation, Diarrhea , Nausea, Vomiting Genitourinary: DENIES: Urinary frequency, Urinary incontinence, Urgency, Hematuria, Dysuria, Nocturia Musculoskeletal: COMPLAINS OF: Muscle aches, Back pain, DENIES: Joint pain Integumentary: DENIES: Pruritus, Rash Hematologic/lymphatic: DENIES: Bruising Neurologic: COMPLAINS OF: Headache Past Family Social History Past Medical History Systemic lupus erythematosus Gastroparesis Chronic hypokalemia Interstitial nephritis History of Crohn's disease History of seizures Past Surgical History Xfoair-v-Tmgg placement Laparotomy Cystoscopy Partial hysterectomy Appendectomy Reported Medications Cleocin (Clindamycin HCl) 150 Mg Cap 300 Mg PO Q6HR 7 Days Ferrous Sulfate 325 Mg (65 Mg Iron) Tablet 325 Mg PO BIDPC Prednisone 20 Mg Tab 40 Mg PO DAILY Take 40mg (2 tabs) daily x7 days, then 20mg (1 tab) daily x7 days, then 10mg (1/2 tab) daily x7days, then stop. Potassium Chloride ER (Potassium Chloride) 20 Meq Tab 40 Meq PO TID K-Phos (Potassium Phosphate Monobasic) 500 Mg Tab 1,000 Mg PO BID Pantoprazole (Pantoprazole Sodium) 40 Mg Tab 40 Mg PO HS Vitamin D3 (Cholecalciferol) 10,000 Unit Cap 20,000 Units PO Q3D @ HS Carafate (Sucralfate) 1 Gram Tab 1 Gm PO TID On empty stomach Magnesium Oxide 400 Mg Tab 400 Mg PO DAILY Allergies: Coded Allergies: Fish Containing Products (Unverified Allergy, Severe, SWELLING IN THROAT, SOB, 08/09/17) cephalexin (Unverified Allergy, Severe, RASH,SWELLING, 08/09/17) ketorolac (Unverified Allergy, Severe, RASH, 08/09/17) penicillin G (Unverified Allergy, Severe, RASH,SWELLING, 08/09/17) prochlorperazine (Unverified Allergy, Mild, DYSTONIC REACTION, 08/09/17) promethazine (Unverified Allergy, Mild, DYSTONIC REACTION, 08/09/17) gabapentin (Unverified Adverse Reaction, Severe, SEIZURES, 08/09/17) *MDRO Multi-Drug Resistant Organism (Verified Adverse Reaction, Unknown, Cleared - 04/21/16, 08/09/17) MRSA axilla/ breast 2009 MRSA PCR (nares) negative - 04/19/16 & 04/21/16 Cleared per Infection Control Family History Lupus Social History Denies alcohol, tobacco, or illicit drug use. Physical Exam Vital Signs Vital Signs Date Time Temp Pulse Resp B/P (MAP) Pulse Ox O2 Delivery O2 Flow Rate FiO2 08/09/17 08:43 99.2 89 16 148/77 (100) 99 Room Air Physical Exam GENERAL: Well-nourished, well-developed female in no acute distress. HEENT: Normocephalic, atraumatic. Pupils equal, round and reactive. Extraocular movements intact. No scleral icterus. No injection or drainage. Oropharynx is clear. Mucous membranes are moist. Oral thrush noted. CARDIOVASCULAR: Regular rate and rhythm without murmurs, gallops, or rubs. RESPIRATORY: Clear to auscultation. No wheezes, rales, or rhonchi. Breathing is non-labored. GASTROINTESTINAL: Abdomen soft, non-tender, nondistended. EXTREMITIES: No lower extremity edema. No calf tenderness. PSYCH: Alert and oriented x 3. Laboratory Laboratory Tests Test 08/09/17 09:45 White Blood Count 8.3 Red Blood Count 3.65 Hemoglobin 10.6 Hematocrit 31.7 Mean Corpuscular Volume 86.7 Mean Corpuscular Hemoglobin 29.1 Mean Corpuscular Hemoglobin Concent 33.6 Red Cell Distribution Width 14.9 Platelet Count 204 Mean Platelet Volume 7.9 Neutrophils (%) (Auto) 69.6 Lymphocytes (%) (Auto) 18.3 Monocytes (%) (Auto) 7.7 Eosinophils (%) (Auto) 3.3 Basophils (%) (Auto) 1.1 Neutrophils # (Auto) 5.8 Lymphocytes # (Auto) 1.5 Monocytes # (Auto) 0.6 Eosinophils # (Auto) 0.3 Basophils # (Auto) 0.1 CBC Comment DIFF FINAL Differential Comment Prothrombin Time 10.7 Prothromb Time International Ratio 1.0 Activated Partial Thromboplast Time 20.8 Urine Color LIGHT-YELLOW Urine Turbidity CLEAR Urine pH 6.0 Urine Specific Morven 1.014 Urine Protein NEG Urine Glucose (UA) NEG Urine Ketones NEG Urine Occult Blood NEG Urine Nitrite NEG Urine Bilirubin NEG Urine Urobilinogen LESS THAN 2.0 Urine Leukocyte Esterase NEG Urine WBC 1 Urine Squamous Epithelial Cells 1 Urine Transitional Epithelial Cells <1 Urine Hyaline Casts 3 Microscopic Urinalysis Comment CULT NOT INDICATED Blood Urea Nitrogen 40 Creatinine 2.19 Random Glucose 93 Total Protein 6.4 Albumin 3.2 Calcium Level 8.7 Magnesium Level 1.9 Alkaline Phosphatase 39 Aspartate Amino Transf (AST/SGOT) 17 Alanine Aminotransferase (ALT/SGPT) 14 Total Bilirubin 0.1 Sodium Level 138 Potassium Level 2.6 Chloride Level 102 Carbon Dioxide Level 25.9 Anion Gap 10 Estimat Glomerular Filtration Rate 25 Total Creatine Kinase 324 Creatine Kinase MB 6.0 Creatine Kinase MB % 1.9 Troponin I LESS THAN 0.02 Lipase 65 Result Diagram: 08/09/1745 08/09/1745 Imaging Last Impressions Chest X-Ray 08/09/17 5299 Signed Impressions: Service Date/Time: Wednesday, August 09, 2017 09:03 - CONCLUSION: 1. No acute cardiopulmonary disease. MD Sneha Landon VTE Risk Assessment Caprini VTE Risk Assessment: Mod/High Risk (score >= 2) Caprini Risk Assessment Model Point Value = 1 Point Value = 2 Point Value = 3 Point Value = 5 Age 41-60 Minor surgery BMI > 25 kg/m2 Swollen legs Varicose veins or History of unexplained or recurrent spontaneous Oral contraceptives or hormone replacement Sepsis (< 1 month) Serious lung disease, including pneumonia (< 1 month) Abnormal pulmonary function Acute myocardial infarction Congestive heart failure (< 1 month) History of inflammatory bowel disease Medical patient at bed rest Age 61-74 Arthroscopic surgery Major open surgery (> 45 min) Laparoscopic surgery (> 45 min) Malignancy Confined to bed (> 72 hours) Immobilizing plaster cast Central venous access Age >= 75 History of VTE Family history of VTE Factor V Leiden Prothrombin [id number] Lupus anticoagulant Anticardiolipin antibodies Elevated serum homocysteine Heparin-induced thrombocytopenia Other congenital or acquired thrombophilia Stroke (< 1 month) Elective arthroplasty Hip, pelvis, or leg fracture Acute spinal cord injury (< 1 month) Prophylaxis Regimen Total Risk Factor Score Risk Level Prophylaxis Regimen 0-1 Low Early ambulation 2 Moderate Order ONE of the following: *Sequential Compression Device (SCD) *Heparin 5000 units SQ BID 3-4 Higher Order ONE of the following medications: *Heparin 5000 units SQ TID *Enoxaparin/Lovenox 40 mg SQ daily (WT < 150 kg, CrCl > 30 mL/min) *Enoxaparin/Lovenox 30 mg SQ daily (WT < 150 kg, CrCl > 10-29 mL/min) *Enoxaparin/Lovenox 30 mg SQ BID (WT < 150 kg, CrCl > 30 mL/min) AND/OR *Sequential Compression Device (SCD) 5 or more Highest Order ONE of the following medications: *Heparin 5000 units SQ TID (Preferred with Epidurals) *Enoxaparin/Lovenox 40 mg SQ daily (WT < 150 kg, CrCl > 30 mL/min) *Enoxaparin/Lovenox 30 mg SQ daily (WT < 150 kg, CrCl > 10-29 mL/min) *Enoxaparin/Lovenox 30 mg SQ BID (WT < 150 kg, CrCl > 30 mL/min) AND *Sequential Compression Device (SCD) Assessment and Plan Assessment and Plan 1. Severe hypokalemia: Supplement potassium IV. Patient was given oral potassium in the ER. Monitor labs. 2. Acute renal failure: Consult nephrology. The patient received IV fluids in the ER. Monitor BUN and creatinine. 3. Anxiety: Ativan as needed. 4. Lupus 5. Gastroparesis: Monitor symptoms. Consider GI consult if symptoms worsen. 6. DVT prophylaxis: Heparin. 7. GI prophylaxis: Protonix. 8. Oral thrush: Nystatin swish and swallow. Problem Qualifiers (1) Acute renal failure: Qualified Codes: N17.9 - Acute kidney failure, unspecified Rocky Painting MD Aug 09, 2017 12:04
[2017-08-09] MEDS: HEPARIN SODIUM - SQ 10,000 UNITS/ML VIAL SQ SCH ×2 (12:21→22:48)
[2017-08-09 13:08] VITALS: BP 147/71; PULSE 71; RESP 16; O2SAT 99
[2017-08-09] MEDS: SUCRALFATE 1 GM TAB PO SCH ×2 (13:36→17:43)
[2017-08-09] MEDS: NYSTATIN SUSP 500,000 U/5 ML CUP SWISH-SWAL SCH ×3 (13:36→22:47)
[2017-08-09] MEDS: POTASSIUM CHLORIDE 20 MEQ CONTROLLED RELEASE TAB PO SCH ×2 (13:36→17:43)
[2017-08-09] MEDS: NS + KCL 20 MEQ INJ 1,000 ML IV SCH ×2 (13:37→22:53)
[2017-08-09] MEDS ORDERED: POTASSIUM CHLORIDE INJ 30 MEQ in SODIUM CHLORIDE 0.9% INJ 100 ML IV-CENTRAL SCH (14:00)
--- NOTE | 2017-08-09 14:09 | EKG ---
Date Performed: 08/09/2017 Time Performed: 09:41:09 PTAGE: 41 years EKG: Sinus rhythm MINIMAL ST DEPRESSION PROLONGED QT INTERVAL ABNORMAL ECG PREVIOUS TRACING : 08/09/2017 09.14 DOCTOR: Feliz Leiva Interpretating Date/Time 08/09/2017 14:08:07
--- NOTE | 2017-08-09 14:16 | MB ---
cc: NARINDER FERRARI MD DATE OF CONSULTATION: 08/09/2017 REASON FOR CONSULTATION Acute kidney injury and severe hypokalemia. HISTORY OF PRESENT ILLNESS This is a 41-year-old female with past medical history of systemic lupus erythematosus, gastroparesis, recurrent history of hypokalemia, history of recurrent acute kidney injury, Crohn's disease, seizure disorder, came to the hospital with generalized weakness. I was called to see the patient because of elevated BUN, creatinine and creatinine was 2.1 and potassium was 2.6. The patient has history of hypokalemia. She has been taking potassium at home and she has Ljukka-X-Eoeg. According to the patient she was taking her potassium regularly and she has been passing a lot of urine and she started developing generalized weakness and she knew that the potassium was low, so she came to the hospital. She denies any nausea or vomiting. There is no history of diarrhea. She has loose bowel motion once every 2-3 days, which is normal for her since she has history of Crohn's disease. The patient also has gastroparesis. She had all the GI workup done. She has history of lupus, according to the patient but looking at the labs here her ELLE was negative three times and there was no double-stranded DNA done. The patient claims to be compliant with her medication. She denies inducing any vomiting. She lost weight according to her but this is because some times her appetite was down but she is forcing herself to eat more. She occasionally takes ibuprofen almost every other day for joint pain. PAST MEDICAL HISTORY 1. Systemic lupus erythematosus. 2. Gastroparesis. 3. Crohn's disease. 4. Recurrent acute kidney injury. 5. Chronic hypokalemia. 6. History of seizure disorder. PAST SURGICAL HISTORY 1. Cystoscopy. 2. Laparotomy. 3. Hysterectomy. 4. Appendicectomy. 5. Btsmob-[id number]-Bbso placement. REVIEW OF SYSTEMS The patient has generalized weakness, feeling tired. She has pain in multiple joints. She denies any nausea or vomiting. There is no history of diarrhea. No dysuria, hematuria. She has been passing a lot of urine and according to the patient she possibly has polyuria. She has been taking ibuprofen off and on for joint pain. She claims to be compliant with her medication. She denies inducing any vomiting. SOCIAL HISTORY There is no history of smoking or alcoholism or using any illicit drugs. FAMILY HISTORY Family history is positive for lupus from mother's side. ALLERGIES CEPHALEXIN, KETOROLAC, PENICILLIN, PROCHLORPERAZINE, PROMETHAZINE, GABAPENTIN. PHYSICAL EXAMINATION GENERAL: The patient is awake, alert. She is not in acute distress. VITAL SIGNS: Her last blood pressure is 148/77, temperature 99.2, oxygen saturation 99% on room air. HEENT: Pupils round, mid constricted. Nonicteric sclerae, conjunctivae pale. NECK: Supple. JVP is not elevated. LUNGS: The patient has bilateral good air entry. No wheezing. HEART: S1, S2, regular rhythm. ABDOMEN: Soft lax. There is mild tenderness in the lower abdomen. There is no rebound or rigidity. Bowel sounds are positive. EXTREMITIES: She has no pedal edema. INVESTIGATION WBC count is 8.3, hemoglobin 10.6, platelet count of 204, neutrophils 69.6%, eosinophils 3.3%, sodium is 138, potassium 2.6, chloride 102, bicarb 25.9, BUN 40, creatinine 2.1, magnesium is 1.9, total bilirubin is 0.1, AST, ALT normal, alkaline phosphatase 39, creatinine kinase 324, total protein is 6.4, albumin is 3.2. INR is 1.0. Urinalysis showing that there is no protein. Total 24-hour urine protein done in the past and it was 425 but this was done in 2006. Her ELLE was negative in January of this year. IMAGING STUDIES The patient had a chest x-ray done today which shows lung orellana clear. The patient had MR cholangiography done in May and it shows normal MRCP examination. ASSESSMENT/PLAN 1. Acute kidney injury. 2. Severe hypokalemia. 3. Elevated creatinine kinase. 4. History of gastroparesis and Crohn's disease. 5. Possible history of lupus erythematosus. 6. Anxiety. The patient has persistent hypokalemia. She also takes magnesium and her phosphorus is also on the lower side, so she has problem with multiple electrolytes, possibly has some kind of tubular disease causing her to lose this in the urine. I will check the urine potassium and osmolality. I will get ultrasound of the kidneys. Acute kidney injury could be related to either dehydration or possibility of nonsteroidal anti-inflammatory drugs causing this. She received potassium replacement and she is on IV fluid with potassium chloride. I will check her phosphorus. She has history of lupus erythematosus, I will check the ELLE and anti-DNA to see if there is any activity of lupus present at this time. Considering that she has no proteinuria, it is very unlikely that kidneys are affected by the lupus, but if kidney function does not improve she probably will need biopsy. Thank you for the consultation. I will follow the patient while she is in the hospital. MD AVIS Dexter/TLL /12:53 PM /1:46 PM
[2017-08-09 16:00] VITALS: BP 139/95; PULSE 75; RESP 16; TEMP 98.4; O2SAT 99
[2017-08-09] MEDS: FERROUS SULFATE 325 MG (65 MG ELEMENTAL IRON) TAB PO SCH (17:43)
--- NOTE | 2017-08-09 18:38 | RADRPT ---
EXAM DATE/TIME: 08/09/2017 18:09 [facility] COMPARISON: US KIDNEY/RENAL/BLADDER, January 03, 2017, 12:35. INDICATIONS : Increased BUN/Creatinine. MEDICAL HISTORY : Gastroesophageal reflux disease. Epilepsy. Syncope. Migraine. Crohn's disease. gastroparesis. ulc er. atrial fibrillation. interstitial cystitis. kidney stones. recurrent uti's. lupus. uterine cancer . mrsa. c.diff. . bipolar disorder. ptsd. anxiety. ovarian cysts. SURGICAL HISTORY : Hysterectomy. Appendectomy. Oral abscess removed. Laparoscopy. Cystoscopy. Port placement. ENCOUNTER: Initial ACUITY: 1 day PAIN SCORE: 6/10 LOCATION: Bilateral flank MEASUREMENTS: RIGHT KIDNEY: 10.1 x 4.6 x 5.3 cm LEFT KIDNEY: 11.3 x 4.9 x 5.8 cm FINDINGS: RIGHT KIDNEY: Renal cortex is normal in thickness and echotexture. No hydronephrosis, stone, or mass. LEFT KIDNEY: Renal cortex is normal in thickness and echotexture. The renal pyranids are mildly prominent and hyp oechoic. No hydronephrosis, stone, or mass. BLADDER: Within normal limits given the degree of distension. CONCLUSION: Negative examination. Brian Loyd MD on August 09, 2017 at 18:33 Board Certified Radiologist. This report was verified electronically.
[2017-08-09 20:00] VITALS: BP 123/74; PULSE 71; PULSE 74; RESP 19; TEMP 98.5; O2SAT 98
[2017-08-09] MEDS: POTASSIUM PHOSPHATE MONOBASIC 500 MG TAB PO SCH (22:47)
[2017-08-09] MEDS: PANTOPRAZOLE SOD 40 MG DELAYED RELEASE TAB PO SCH (22:47)
[2017-08-09] MEDS ORDERED: LORazepam 1 MG TAB PO ONE (23:15)
[2017-08-10] VITALS: BP 147/75; PULSE 67; PULSE 86; RESP 18; TEMP 99.8; O2SAT 98
[2017-08-10 04:00] VITALS: BP 112/69; PULSE 68; PULSE 75; RESP 17; TEMP 98.4; O2SAT 98
[2017-08-10] MEDS ORDERED: SODIUM CHLORIDE 0.9% FLUSH 10 ML FLUSH IV FLUSH PRN (06:30)
[2017-08-10 08:00] VITALS: BP 144/94; PULSE 74; PULSE 75; RESP 18; TEMP 98.4; O2SAT 100
[2017-08-10] MEDS: SUCRALFATE 1 GM TAB PO SCH ×3 (08:52→21:06)
[2017-08-10] MEDS: NYSTATIN SUSP 500,000 U/5 ML CUP SWISH-SWAL SCH ×4 (08:52→21:06)
[2017-08-10] MEDS: POTASSIUM CHLORIDE 20 MEQ CONTROLLED RELEASE TAB PO SCH ×3 (08:53→18:12)
[2017-08-10] MEDS: FERROUS SULFATE 325 MG (65 MG ELEMENTAL IRON) TAB PO SCH ×2 (08:53→18:13)
[2017-08-10] MEDS: POTASSIUM PHOSPHATE MONOBASIC 500 MG TAB PO SCH ×2 (08:53→21:06)
[2017-08-10] MEDS ORDERED: MAGNESIUM OXIDE 400 MG TAB PO SCH (09:00)
--- NOTE | 2017-08-10 09:42 | HHI.PR ---
Subjective Remarks Follow up hypokalemia. Patient states that she still has pain "all over". Reports anxiety. Requesting to have thyroid labs checked. Objective Vitals Vital Signs Date Time Temp Pulse Resp B/P (MAP) Pulse Ox O2 Delivery O2 Flow Rate FiO2 08/10/17 08:00 98.4 74 18 144/94 (111) 100 08/10/17 04:00 98.4 75 17 112/69 (83) 98 08/10/17 04:00 68 08/10/17 00:00 99.8 86 18 147/75 (99) 98 08/10/17 00:00 67 08/09/17 20:00 98.5 74 19 123/74 (90) 98 08/09/17 20:00 71 08/09/17 16:00 98.4 75 16 139/95 (110) 99 08/09/17 14:55 08/09/17 13:37 20 08/09/17 13:08 71 16 147/71 (96) 99 Room Air I/O 08/09/17 08/09/17 08/09/17 08/10/17 08/10/17 08/10/17 07:00 15:00 23:00 07:00 15:00 23:00 Intake Total 1500 ml 400 ml 200 ml Balance 1500 ml 400 ml 200 ml Intake Oral 400 ml 200 ml IV Total 1500 ml # Voids 3 3 Result Diagram: 08/09/17 0945 08/09/1745 Imaging Last Impressions Chest X-Ray 08/09/17 0851 Signed Impressions: Service Date/Time: Wednesday, August 09, 2017 09:03 - CONCLUSION: 1. No acute cardiopulmonary disease. Albert Villanueva MD Renal Ultrasound 08/09/17 0000 Signed Impressions: Service Date/Time: Wednesday, August 09, 2017 18:09 - CONCLUSION: Negative examination. Brian Loyd MD Objective Remarks Examined in the presence of the nurse. General: No acute distress. Heart: Regular rate and rhythm. No murmur. Lungs: Clear to auscultation bilaterally. No wheezes, rales, or rhonchi. Breathing is nonlabored. Abdomen: Soft, nontender, nondistended. Extremities: No lower extremity edema. Psych: Alert and oriented. Procedures None Urinary Catheter: No Vascular Central Line Catheter: No A/P Problem List: (1) Acute renal failure ICD Code: N17.9 - Acute kidney failure, unspecified Status: Acute (2) Hypokalemia ICD Code: E87.6 - Hypokalemia Status: Chronic (3) Anxiety ICD Code: F41.9 - Anxiety disorder, unspecified (4) Lupus (systemic lupus erythematosus) ICD Code: M32.9 - Systemic lupus erythematosus, unspecified Assessment and Plan 1. Severe hypokalemia: Supplement potassium IV. Patient was given oral potassium in the ER. Labs are pending today. 2. Acute renal failure: Appreciate nephrology recommendations. Monitor BUN and creatinine. Labs are pending today. 3. Anxiety: Ativan as needed. 4. Lupus: Resume prednisone. 5. Gastroparesis: Monitor symptoms. Consider GI consult if symptoms worsen. 6. DVT prophylaxis: Heparin. 7. GI prophylaxis: Protonix. 8. Oral thrush: Nystatin swish and swallow. Problem Qualifiers (1) Acute renal failure: Qualified Codes: N17.9 - Acute kidney failure, unspecified Rocky Painting MD Aug 10, 2017 09:42
[2017-08-10] MEDS ORDERED: ALTEPLASE RECOMBINANT 2 MG VIAL INTRACATH ONE (10:30)
[2017-08-10] MEDS: LORazepam 0.5 MG TAB PO PRN ×3 (11:09→23:53)
[2017-08-10 11:19] LABS: AUTOMATED NEUTROPHIL # 4.5 TH/MM3 (1.8-7.7); BASOPHIL # 0.1 TH/MM3 (0-0.2); BASOPHIL % 1.4 % (0.0-2.0); EOSINOPHIL # 0.2 TH/MM3 (0-0.4); EOSINOPHIL % 2.4 % (0.0-4.0); HEMO FLAGS DIFF FINAL; LYMPH % 28.7 % (9.0-44.0); LYMPHOCYTE # 2.2 TH/MM3 (1.0-4.8); MEAN CELL VOLUME 86.9 FL (80.0-100.0); MEAN CORPUSCULAR HEMOGLOBIN 28.8 PG (27.0-34.0); MEAN CORPUSCULAR HGB CONC 33.2 % (32.0-36.0); MONO % 8.6 % (0.0-8.0); NEUT % 58.9 % (16.0-70.0); PLATELET COUNT 208 TH/MM3 (150-450); RED BLOOD COUNT 3.68 MIL/MM3 (4.00-5.30); RED CELL DISTRIBUTION WIDTH 14.7 % (11.6-17.2); WHITE BLOOD COUNT 7.6 TH/MM3 (4.0-11.0)
[2017-08-10 11:41] LABS: FREE T4 0.92 NG/DL (0.76-1.46)
[2017-08-10 11:42] LABS: BICARBONATE 24.3 MEQ/L (21.0-32.0); MAGNESIUM 1.7 MG/DL (1.5-2.5)
[2017-08-10 12:00] VITALS: BP 121/80; PULSE 80; PULSE 84; RESP 18; TEMP 99.8; O2SAT 98
--- NOTE | 2017-08-10 13:13 | HHI.NPPN ---
Subjective History of Present Illness 41-year-old female with past medical history of systemic lupus erythematosus, gastroparesis, recurrent history of hypokalemia, history of recurrent acute kidney injury, Crohn's disease, seizure disorder, came to the hospital with generalized weakness. I was called to see the patient because of elevated BUN, creatinine and hypokalemia. Additional Remarks Patient is alert, no nausea vomiting or diarrhea. Review of Systems General Constitutional: Fatigue Cardiovascular Cardiac: Edema, MOSES Objective Data Data Vital Signs Date Time Temp Pulse Resp B/P (MAP) Pulse Ox O2 Delivery O2 Flow Rate FiO2 08/10/17 08:00 98.4 74 18 144/94 (111) 100 08/10/17 04:00 98.4 75 17 112/69 (83) 98 08/10/17 04:00 68 08/10/17 00:00 99.8 86 18 147/75 (99) 98 08/10/17 00:00 67 08/09/17 20:00 98.5 74 19 123/74 (90) 98 08/09/17 20:00 71 08/09/17 16:00 98.4 75 16 139/95 (110) 99 08/09/17 14:55 08/09/17 13:37 20 -: 08/10/17 1013 08/10/17 1013 Physical Exam General Appearance: No Acute Distress, Comfortable Eyes Eye Exam: Pupils Equal Throat Throat Exam: Oral Mucosa [place] & Moist Neck Neck Exam: Neck Supple Pulmonary Resp Exam: Clear Bilaterally, Breath Sounds Equal, No Distress Cardiology CV Exam: Regular, Normal Sinus Rhythm Gastrointestinal/Abdomen GI Exam: Soft, Non-Tender, Bowel Sounds Present Extremeties Extremities Exam: No Edema Neurologic Neuro Exam: Alert, Awake, Oriented Psychiatric Psych Exam: Appropriate Responses Assessment/Plan Assessment Summary: SHABANA/Acute Renal Failure, CKD Stage III Electrolyte Assessment: Hypokalemia Problem List: (1) Hypothyroid ICD Codes: E03.9 - Hypothyroidism, unspecified Status: Acute (2) Dehydration ICD Codes: E86.0 - Dehydration Status: Resolved (3) Gastroparesis ICD Codes: K31.84 - Gastroparesis Status: Acute (4) Generalized weakness ICD Codes: R53.1 - Weakness Status: Acute (5) Hypokalemia ICD Codes: E87.6 - Hypokalemia Status: Resolved (6) Acute on chronic renal failure ICD Codes: N17.9 - Acute kidney failure, unspecified; N18.9 - Chronic kidney disease, unspecified Status: Acute Plan Patient has chronic kidney disease, and now develop SHABANA. Has chronic Hypokalemia and other electrolyte disorder. K is better, now 3.0 after replacement. BP is stable, Creatinine is improving, 1.4. Continue IVF and replacement. Urine K is elevated, check Renin and Aldosterone. Start PO Aldactone. Told to eat more the food with K. ELLE and Anti DNA are pending. Problem Qualifiers (1) Acute on chronic renal failure: Torie Arrieta MD Aug 10, 2017 13:13
[2017-08-10] MEDS: predniSONE 20 MG TAB PO SCH (14:08)
[2017-08-10] MEDS: HEPARIN SODIUM - SQ 10,000 UNITS/ML VIAL SQ SCH ×2 (14:09→23:53)
[2017-08-10] MEDS: NS + KCL 20 MEQ INJ 1,000 ML IV SCH ×2 (14:11→18:15)
[2017-08-10 16:00] VITALS: BP 98/59; PULSE 80; RESP 16; TEMP 97.8; O2SAT 99
[2017-08-10] MEDS ORDERED: POTASSIUM CHLORIDE INJ 40 MEQ in SODIUM CHLORID 0.9% 500 ML INJ 500 ML IV-CENTRAL ONE (16:00)
[2017-08-10] MEDS: SPIRONOLACTONE 25 MG TAB PO SCH (18:12)
[2017-08-10 20:00] VITALS: BP 174/69; PULSE 81; PULSE 84; PULSE 95; RESP 20; TEMP 98.5; O2SAT 98
[2017-08-10] MEDS: PANTOPRAZOLE SOD 40 MG DELAYED RELEASE TAB PO SCH (21:06)
[2017-08-10] MEDS: MAGNESIUM OXIDE 400 MG TAB PO SCH (23:52)
[2017-08-11] VITALS (9 sets, daily range): BP systolic 100–145; BP diastolic 62–93; PULSE 68–101; RESP 16–19; TEMP 96.6–99; O2SAT 97–100
[2017-08-11] MEDS: NS + KCL 20 MEQ INJ 1,000 ML IV SCH ×2 (03:26→13:53)
[2017-08-11] MEDS: SUCRALFATE 1 GM TAB PO SCH ×2 (05:55→13:55)
[2017-08-11] MEDS: LORazepam 0.5 MG TAB PO PRN ×3 (05:55→18:28)
[2017-08-11] MEDS: LEVOTHYROXINE SODIUM 25 MCG TAB PO SCH (05:55)
[2017-08-11 06:19] LABS: AUTOMATED NEUTROPHIL # 4.5 TH/MM3 (1.8-7.7); BASOPHIL # 0.1 TH/MM3 (0-0.2); BASOPHIL % 1.2 % (0.0-2.0); EOSINOPHIL # 0.2 TH/MM3 (0-0.4); EOSINOPHIL % 2.6 % (0.0-4.0); HEMO FLAGS DIFF FINAL; LYMPH % 31.7 % (9.0-44.0); LYMPHOCYTE # 2.6 TH/MM3 (1.0-4.8); MEAN CELL VOLUME 87.3 FL (80.0-100.0); MEAN CORPUSCULAR HGB CONC 33.2 % (32.0-36.0); MONO % 8.8 % (0.0-8.0); NEUT % 55.7 % (16.0-70.0); PLATELET COUNT 212 TH/MM3 (150-450); RED BLOOD COUNT 3.32 MIL/MM3 (4.00-5.30); RED CELL DISTRIBUTION WIDTH 15.1 % (11.6-17.2); WHITE BLOOD COUNT 8.1 TH/MM3 (4.0-11.0)
[2017-08-11 06:38] LABS: BICARBONATE 25.4 MEQ/L (21.0-32.0); MAGNESIUM 1.7 MG/DL (1.5-2.5); POTASSIUM 3.8 MEQ/L (3.5-5.1)
[2017-08-11] MEDS: predniSONE 20 MG TAB PO SCH (09:12)
[2017-08-11] MEDS: POTASSIUM CHLORIDE 20 MEQ CONTROLLED RELEASE TAB PO SCH ×3 (09:12→17:44)
[2017-08-11] MEDS: FERROUS SULFATE 325 MG (65 MG ELEMENTAL IRON) TAB PO SCH ×2 (09:13→17:44)
[2017-08-11] MEDS: SPIRONOLACTONE 25 MG TAB PO SCH ×2 (09:13→17:44)
[2017-08-11] MEDS: NYSTATIN SUSP 500,000 U/5 ML CUP SWISH-SWAL SCH ×4 (09:13→20:12)
[2017-08-11] MEDS: POTASSIUM PHOSPHATE MONOBASIC 500 MG TAB PO SCH ×2 (09:13→20:12)
--- NOTE | 2017-08-11 11:50 | HHI.PR ---
Subjective Remarks Follow-up severe hypokalemia/renal failure 08/11/17-patient seen and examined; she feels tired and thinks her pain is poorly controlled. Currently afebrile. Renal indices improving Objective Vitals Vital Signs Date Time Temp Pulse Resp B/P (MAP) Pulse Ox O2 Delivery O2 Flow Rate FiO2 08/11/17 08:57 98.7 79 16 145/90 (108) 100 08/11/17 08:30 75 08/11/17 04:00 68 08/11/17 04:00 96.6 71 19 117/80 (92) 98 08/11/17 00:00 99.0 84 18 142/67 (92) 98 08/11/17 00:00 74 08/10/17 20:00 98.5 81 20 174/69 (104) 98 08/10/17 20:00 84 08/10/17 16:00 97.8 80 16 98/59 (72) 99 08/10/17 12:00 99.8 80 18 121/80 (94) 98 08/10/17 12:00 84 I/O 08/10/17 08/10/17 08/10/17 08/11/17 08/11/17 08/11/17 06:59 14:59 22:59 06:59 14:59 22:59 Intake Total 200 ml 1920 ml 240 ml Balance 200 ml 1920 ml 240 ml Intake Oral 200 ml 1920 ml 240 ml # Voids 3 28 10 # Bowel Movements 0 Result Diagram: 08/11/17 0553 08/11/17 0553 Imaging Last Impressions Chest X-Ray 08/09/17 0851 Signed Impressions: Service Date/Time: Wednesday, August 09, 2017 09:03 - CONCLUSION: 1. No acute cardiopulmonary disease. Albert Villanueva MD Renal Ultrasound 08/09/17 0000 Signed Impressions: Service Date/Time: Wednesday, August 09, 2017 18:09 - CONCLUSION: Negative examination. Brian Loyd MD Objective Remarks GENERAL: NAD SKIN: Warm and dry. HEAD: Normocephalic. EYES: No scleral icterus. No injection or drainage. NECK: Supple, trachea midline. No JVD or lymphadenopathy. Mouth:poor dentition CARDIOVASCULAR: Regular rate and rhythm without murmurs, gallops, or rubs. RESPIRATORY: Breath sounds equal bilaterally. No accessory muscle use. GASTROINTESTINAL: Abdomen soft, non-tender, nondistended. MUSCULOSKELETAL: No cyanosis, or edema. BACK: Nontender without obvious deformity. No CVA tenderness. Procedures None A/P Problem List: (1) Acute renal failure ICD Code: N17.9 - Acute kidney failure, unspecified Status: Acute (2) Hypokalemia ICD Code: E87.6 - Hypokalemia Status: Chronic (3) Anxiety ICD Code: F41.9 - Anxiety disorder, unspecified (4) Lupus (systemic lupus erythematosus) ICD Code: M32.9 - Systemic lupus erythematosus, unspecified Assessment and Plan 41-year-old female with 1. Severe hypokalemia: Supplement potassium IV. Resolved. Appreciate input from nephrology. Renin and aldosterone level pending 2. Acute renal failure: Renal indices improving. Appreciate nephrology recommendations. 3. Anxiety: Ativan as needed. 4. Lupus: Currently on prednisone.ELLE and Ds DNA pending 5. Gastroparesis: Monitor symptoms. Consider GI consult if symptoms worsen. 6. DVT prophylaxis: Heparin. 7. GI prophylaxis: Protonix. 8. Oral thrush: Improving on Nystatin swish and swallow. Problem Qualifiers (1) Acute renal failure: Qualified Codes: N17.9 - Acute kidney failure, unspecified Clayton Gill MD Aug 11, 2017 11:50
[2017-08-11] MEDS: HEPARIN SODIUM - SQ 10,000 UNITS/ML VIAL SQ SCH (12:38)
[2017-08-11] MEDS: MAGNESIUM OXIDE 400 MG TAB PO SCH (12:44)
--- NOTE | 2017-08-11 15:03 | HHI.NPPN ---
Subjective History of Present Illness 41-year-old female with past medical history of systemic lupus erythematosus, gastroparesis, recurrent history of hypokalemia, history of recurrent acute kidney injury, Crohn's disease, seizure disorder, came to the hospital with generalized weakness. I was called to see the patient because of elevated BUN, creatinine and hypokalemia. Additional Remarks Patient is alert, no nausea vomiting or diarrhea, started eating better, no SOB. Review of Systems General Constitutional: Fatigue Cardiovascular Cardiac: Edema, MOSES Objective Data Data 08/11/17 08/12/17 19:00 07:00 Intake Total 1000 ml Balance 1000 ml IV Total 1000 ml Vital Signs Date Time Temp Pulse Resp B/P (MAP) Pulse Ox O2 Delivery O2 Flow Rate FiO2 08/11/17 12:03 73 08/11/17 12:00 97.6 81 16 139/93 (108) 99 08/11/17 08:57 98.7 79 16 145/90 (108) 100 08/11/17 08:30 75 08/11/17 04:00 68 08/11/17 04:00 96.6 71 19 117/80 (92) 98 08/11/17 00:00 99.0 84 18 142/67 (92) 98 08/11/17 00:00 74 08/10/17 20:00 98.5 81 20 174/69 (104) 98 08/10/17 20:00 84 08/10/17 16:00 97.8 80 16 98/59 (72) 99 -: 08/11/17 0553 08/11/17 0553 Physical Exam General Appearance: No Acute Distress, Comfortable Eyes Eye Exam: Pupils Equal Throat Throat Exam: Oral Mucosa [place] & Moist Neck Neck Exam: Neck Supple Pulmonary Resp Exam: Clear Bilaterally, Breath Sounds Equal, No Distress Cardiology CV Exam: Regular, Normal Sinus Rhythm Gastrointestinal/Abdomen GI Exam: Soft, Non-Tender, Bowel Sounds Present Extremeties Extremities Exam: No Edema Neurologic Neuro Exam: Alert, Awake, Oriented Psychiatric Psych Exam: Appropriate Responses Assessment/Plan Assessment Summary: SHABANA/Acute Renal Failure, CKD Stage III Electrolyte Assessment: Hypokalemia Problem List: (1) Hypothyroid ICD Codes: E03.9 - Hypothyroidism, unspecified Status: Acute (2) Dehydration ICD Codes: E86.0 - Dehydration Status: Resolved (3) Gastroparesis ICD Codes: K31.84 - Gastroparesis Status: Acute (4) Generalized weakness ICD Codes: R53.1 - Weakness Status: Acute (5) Hypokalemia ICD Codes: E87.6 - Hypokalemia Status: Resolved (6) Acute on chronic renal failure ICD Codes: N17.9 - Acute kidney failure, unspecified; N18.9 - Chronic kidney disease, unspecified Status: Acute Plan Patient has chronic kidney disease, and now develop SHABANA. Has chronic Hypokalemia and other electrolyte disorder. BP is stable, Creatinine is improving, now 1.1, K is 3.8 with replacement. Continue IVF and replacement. Urine K is elevated, Renin and Aldosterone still PND. Started on PO Aldactone. Told to eat more the food with K. ELLE and Anti DNA are still pending. Has no proteinuria, and Creatinine decreased to 1.1, unlikely to have Lupus Nephritis. Problem Qualifiers (1) Acute on chronic renal failure: Torie Arrieta MD Aug 11, 2017 15:03
[2017-08-11] MEDS: PANTOPRAZOLE SOD 40 MG DELAYED RELEASE TAB PO SCH (20:12)
[2017-08-12] VITALS: BP 123/83; PULSE 74; RESP 16; TEMP 97.9; O2SAT 99
[2017-08-12] MEDS: NS + KCL 20 MEQ INJ 1,000 ML IV SCH ×2 (00:15→11:05)
[2017-08-12] MEDS: MAGNESIUM OXIDE 400 MG TAB PO SCH ×2 (00:32→11:05)
[2017-08-12] MEDS: SUCRALFATE 1 GM TAB PO SCH ×3 (00:33→14:00)
[2017-08-12] MEDS: HEPARIN SODIUM - SQ 10,000 UNITS/ML VIAL SQ SCH ×2 (00:36→12:57)
[2017-08-12] MEDS: LORazepam 0.5 MG TAB PO PRN ×3 (00:38→12:59)
[2017-08-12 04:00] VITALS: BP 111/75; PULSE 75; RESP 16; TEMP 98.1; O2SAT 98
[2017-08-12 06:05] LABS: BICARBONATE 24.4 MEQ/L (21.0-32.0)
[2017-08-12] MEDS: LEVOTHYROXINE SODIUM 25 MCG TAB PO SCH (06:45)
[2017-08-12 08:00] VITALS: BP 129/83; PULSE 80; PULSE 83; RESP 18; TEMP 98.6; O2SAT 99
[2017-08-12] MEDS: predniSONE 20 MG TAB PO SCH (09:24)
[2017-08-12] MEDS: SPIRONOLACTONE 25 MG TAB PO SCH (09:24)
[2017-08-12] MEDS: NYSTATIN SUSP 500,000 U/5 ML CUP SWISH-SWAL SCH ×2 (09:24→12:56)
[2017-08-12] MEDS: FERROUS SULFATE 325 MG (65 MG ELEMENTAL IRON) TAB PO SCH (09:24)
[2017-08-12] MEDS: POTASSIUM PHOSPHATE MONOBASIC 500 MG TAB PO SCH (09:24)
[2017-08-12] MEDS: POTASSIUM CHLORIDE 20 MEQ CONTROLLED RELEASE TAB PO SCH ×2 (09:24→12:58)
--- NOTE | 2017-08-12 09:52 | HHI.NPPN ---
Subjective History of Present Illness 41-year-old female with past medical history of systemic lupus erythematosus, gastroparesis, recurrent history of hypokalemia, history of recurrent acute kidney injury, Crohn's disease, seizure disorder, came to the hospital with generalized weakness. I was called to see the patient because of elevated BUN, creatinine and hypokalemia. Additional Remarks Patient is alert, no nausea vomiting or diarrhea, no SOB, occ. has abd. pain. Review of Systems General Constitutional: Fatigue Cardiovascular Cardiac: Edema, MOSES Objective Data Data Vital Signs Date Time Temp Pulse Resp B/P (MAP) Pulse Ox O2 Delivery O2 Flow Rate FiO2 08/12/17 08:00 98.6 80 18 129/83 (98) 99 08/12/17 04:00 98.1 75 16 111/75 (87) 98 08/12/17 02:00 20 08/12/17 00:00 97.9 74 16 123/83 (96) 99 08/11/17 21:00 84 08/11/17 20:00 97.6 86 16 116/66 (83) 98 08/11/17 16:00 98.2 74 16 100/63 (75) 97 08/11/17 12:03 73 08/11/17 12:00 97.6 81 16 139/93 (108) 99 -: 08/11/17 0553 08/12/17 0535 Physical Exam General Appearance: No Acute Distress, Comfortable Eyes Eye Exam: Pupils Equal Throat Throat Exam: Oral Mucosa [place] & Moist Neck Neck Exam: Neck Supple Pulmonary Resp Exam: Clear Bilaterally, Breath Sounds Equal, No Distress Cardiology CV Exam: Regular, Normal Sinus Rhythm Gastrointestinal/Abdomen GI Exam: Soft, Non-Tender, Bowel Sounds Present Extremeties Extremities Exam: No Edema Neurologic Neuro Exam: Alert, Awake, Oriented Psychiatric Psych Exam: Appropriate Responses Assessment/Plan Assessment Summary: SHBAANA/Acute Renal Failure, CKD Stage III Electrolyte Assessment: Hypokalemia Problem List: (1) Hypothyroid ICD Codes: E03.9 - Hypothyroidism, unspecified Status: Acute (2) Dehydration ICD Codes: E86.0 - Dehydration Status: Resolved (3) Gastroparesis ICD Codes: K31.84 - Gastroparesis Status: Acute (4) Generalized weakness ICD Codes: R53.1 - Weakness Status: Acute (5) Hypokalemia ICD Codes: E87.6 - Hypokalemia Status: Resolved (6) Acute on chronic renal failure ICD Codes: N17.9 - Acute kidney failure, unspecified; N18.9 - Chronic kidney disease, unspecified Status: Acute Plan Patient has chronic kidney disease, and now develop SHABANA. Has chronic Hypokalemia and other electrolyte disorder. BP is stable, Creatinine is improving, now 1.0, K is 4.0 with replacement. Continue IVF and replacement. Urine K is elevated, Renin and Aldosterone still PND. On PO Aldactone. Told to eat more the food with K. ELLE negative and Anti DNA still pending. Has no proteinuria, and Creatinine decreased, unlikely to have Lupus Nephritis. Can be discharged from Nephrology, will need out patient follow up. Problem Qualifiers (1) Acute on chronic renal failure: Torie Arrieta MD Aug 12, 2017 09:52
--- NOTE | 2017-08-12 11:07 | HHI.PR ---
Subjective Remarks Follow-up severe hypokalemia/renal failure 08/11/17-patient seen and examined; she feels tired and thinks her pain is poorly controlled. Currently afebrile. Renal indices improving 08/12/17-patient seen and examined;she complains of poorly controlled pain. Renal indices improved. Case d/w Dr Arrieta Objective Vitals Vital Signs Date Time Temp Pulse Resp B/P (MAP) Pulse Ox O2 Delivery O2 Flow Rate FiO2 08/12/17 08:00 98.6 80 18 129/83 (98) 99 08/12/17 04:00 98.1 75 16 111/75 (87) 98 08/12/17 02:00 20 08/12/17 00:00 97.9 74 16 123/83 (96) 99 08/11/17 21:00 84 08/11/17 20:00 97.6 86 16 116/66 (83) 98 08/11/17 16:00 98.2 74 16 100/63 (75) 97 08/11/17 12:03 73 08/11/17 12:00 97.6 81 16 139/93 (108) 99 I/O 08/11/17 08/11/17 08/11/17 08/12/17 08/12/17 08/12/17 06:59 14:59 22:59 06:59 14:59 22:59 Intake Total 240 ml 1000 ml 1380 ml 4303 ml Balance 240 ml 1000 ml 1380 ml 4303 ml Intake Oral 240 ml 1380 ml 240 ml IV Total 1000 ml 4063 ml # Voids 10 14 6 Result Diagram: 08/11/17 0553 08/12/17 0535 Imaging Last Impressions Chest X-Ray 08/09/17 0851 Signed Impressions: Service Date/Time: Wednesday, August 09, 2017 09:03 - CONCLUSION: 1. No acute cardiopulmonary disease. Albert Villanueva MD Renal Ultrasound 08/09/17 0000 Signed Impressions: Service Date/Time: Wednesday, August 09, 2017 18:09 - CONCLUSION: Negative examination. Brian Loyd MD Objective Remarks GENERAL: NAD SKIN: Warm and dry. HEAD: Normocephalic. EYES: No scleral icterus. No injection or drainage. NECK: Supple, trachea midline. No JVD or lymphadenopathy. Mouth:poor dentition CARDIOVASCULAR: Regular rate and rhythm without murmurs, gallops, or rubs. RESPIRATORY: Breath sounds equal bilaterally. No accessory muscle use. GASTROINTESTINAL: Abdomen soft, non-tender, nondistended. MUSCULOSKELETAL: No cyanosis, or edema. BACK: Nontender without obvious deformity. No CVA tenderness. Procedures None A/P Problem List: (1) Acute renal failure ICD Code: N17.9 - Acute kidney failure, unspecified Status: Acute (2) Hypokalemia ICD Code: E87.6 - Hypokalemia Status: Chronic (3) Anxiety ICD Code: F41.9 - Anxiety disorder, unspecified (4) Lupus (systemic lupus erythematosus) ICD Code: M32.9 - Systemic lupus erythematosus, unspecified Assessment and Plan 41-year-old female with 1. Severe hypokalemia: Supplement potassium IV. Resolved. Appreciate input from nephrology. Renin and aldosterone level pending 2. Acute renal failure on CKD: Renal indices improving and not Lupus Nephritis. No Proteinuria. Appreciate nephrology recommendations. 3. Anxiety: Ativan as needed. 4. Lupus: Currently on prednisone.ELLE negative and Ds DNA pending 5. Gastroparesis: Monitor symptoms. Consider GI consult if symptoms worsen. 6. DVT prophylaxis: Heparin. 7. GI prophylaxis: Protonix. 8. Oral thrush: Improving on Nystatin swish and swallow. Problem Qualifiers (1) Acute renal failure: Qualified Codes: N17.9 - Acute kidney failure, unspecified Clayton Gill MD Aug 12, 2017 11:07
--- NOTE | 2017-08-12 11:15 | HHI.DS ---
Discharge Summary Admission Date Aug 09, 2017 at 11:25 Discharge Date: Aug 12, 2017 Admitting Diagnosis acute renal failure, hypokalemia (1) Acute renal failure ICD Code: N17.9 - Acute kidney failure, unspecified Status: Acute (2) Hypokalemia ICD Code: E87.6 - Hypokalemia Status: Chronic (3) Anxiety ICD Code: F41.9 - Anxiety disorder, unspecified (4) Lupus (systemic lupus erythematosus) ICD Code: M32.9 - Systemic lupus erythematosus, unspecified Procedures None Brief History - From Admission The patient is a 41-year-old female with known history of hypokalemia secondary to poor absorption. She presented to the emergency department stating that she felt as if her potassium was low. She states that when her potassium gets low, she develops cramping pains throughout her body as well as shortness of breath. She states that this has been worsening over the past 2 days. She is not currently short of breath and denies chest pain. She denies fever, chills, night sweats. CBC/BMP: 08/11/17 0553 08/12/17 0535 Significant Findings Laboratory Tests Test 08/10/17 10:13 08/10/17 14:05 08/11/17 05:53 08/12/17 05:35 Red Blood Count 3.68 MIL/MM3 (4.00-5.30) 3.32 MIL/MM3 (4.00-5.30) Hemoglobin 10.6 GM/DL (11.6-15.3) 9.6 GM/DL (11.6-15.3) Hematocrit 32.0 % (35.0-46.0) 29.0 % (35.0-46.0) Monocytes (%) (Auto) 8.6 % (0.0-8.0) 8.8 % (0.0-8.0) Blood Urea Nitrogen 22 MG/DL (7-18) 19 MG/DL (7-18) Creatinine 1.41 MG/DL (0.50-1.00) 1.11 MG/DL (0.50-1.00) 1.05 MG/DL (0.50-1.00) Random Glucose 154 MG/DL (74-106) 109 MG/DL (74-106) Phosphorus Level 1.9 MG/DL (2.5-4.9) Potassium Level 3.0 MEQ/L (3.5-5.1) Chloride Level 110 MEQ/L (98-107) 112 MEQ/L (98-107) 113 MEQ/L (98-107) Estimat Glomerular Filtration Rate 41 ML/MIN (>89) 54 ML/MIN (>89) 58 ML/MIN (>89) Thyroid Stimulating Hormone 3rd Gen 4.360 uIU/ML (0.358-3.740) Imaging Last Impressions Chest X-Ray 08/09/17 0851 Signed Impressions: Service Date/Time: Wednesday, August 09, 2017 09:03 - CONCLUSION: 1. No acute cardiopulmonary disease. Albert Villanueva MD Renal Ultrasound 08/09/17 0000 Signed Impressions: Service Date/Time: Wednesday, August 09, 2017 18:09 - CONCLUSION: Negative examination. Brian Loyd MD PE at Discharge GENERAL: NAD SKIN: Warm and dry. HEAD: Normocephalic. EYES: No scleral icterus. No injection or drainage. NECK: Supple, trachea midline. No JVD or lymphadenopathy. Mouth:poor dentition CARDIOVASCULAR: Regular rate and rhythm without murmurs, gallops, or rubs. RESPIRATORY: Breath sounds equal bilaterally. No accessory muscle use. GASTROINTESTINAL: Abdomen soft, non-tender, nondistended. MUSCULOSKELETAL: No cyanosis, or edema. BACK: Nontender without obvious deformity. No CVA tenderness. Hospital Course Patient was admitted 2/2 Severe hypokalemia for which she was given Supplement potassium IV and nephrology was consulted.Her renal function also improved with IVF hydration. She was continued on Prednisone for her Lupus. ELLE was negative however Ds DNa, Renin and aldosterone level pending. Pt Condition on Discharge: Stable Discharge Disposition: Discharge Home Discharge Time: <= 30 minutes Discharge Instructions DIET: Follow Instructions for: Heart Healthy Diet Activities you can perform: Regular-No Restrictions Follow up Referrals: Nephrology PCP Follow-up - 1 Week New Medications: Levothyroxine (Levothyroxine) 25 Mcg Tab 25 MCG PO DAILY@0600 for Thyroid Supplement, #30 TAB 3 Refills Lorazepam (Ativan) 0.5 Mg Tab 0.5 MG PO Q6H PRN for ANXIETY, #20 TAB Nystatin Liq (Nystatin Liq) 100,000 unit/ml Susp 5 ML SWISH-SWAL QID for Infection, #1 UNIT Oxycodone (Oxycodone) 5 Mg Tab 5 MG PO Q6H PRN for PAIN SCALE 4 TO 10, #20 TAB Spironolactone (Aldactone) 25 Mg Tab 25 MG PO BID@,18 for Electrolyte Replacement, #60 TAB 11 Refills Continued Medications: Cholecalciferol (Vitamin D3) 10,000 Unit Cap 15459 UNITS PO Q3D @ HS for Nutritional Supplement, #1 BOTTLE 0 Refills Clindamycin (Cleocin) 150 Mg Cap 300 MG PO Q6HR for Tooth infection for 7 Days, #28 CAP (This prescription has been renewed) Ferrous Sulfate (Ferrous Sulfate) 325 Mg (65 Mg Iron) Tablet 325 MG PO BIDPC for Nutritional Supplement, #60 TAB 0 Refills Magnesium Oxide (Magnesium Oxide) 400 Mg Tab 400 MG PO DAILY for Nutritional Supplement, TAB 0 Refills Pantoprazole (Pantoprazole) 40 Mg Tab 40 MG PO HS for Reflux, #30 TAB 0 Refills Potassium Chloride ER (Potassium Chloride ER) 20 Meq Tab 40 MEQ PO TID for Electrolyte Replacement, #90 TAB 0 Refills (This prescription has been renewed) Potassium Phosphate Monobasic (K-Phos) 500 Mg Tab 1000 MG PO BID for Electrolyte Replacement, #60 TAB 3 Refills (This prescription has been renewed) Prednisone (Prednisone) 20 Mg Tab 40 MG PO DAILY for Control Inflammation, #25 TAB 0 Refills (This prescription has been renewed) Take 40mg (2 tabs) daily x7 days, then 20mg (1 tab) daily x7 days, then 10mg (1/2 tab) daily x7days, then stop. Sucralfate (Carafate) 1 Gram Tab 1 GM PO TID for Ulcer Prevention, #90 TAB 3 Refills (This prescription has been renewed) On empty stomach Clayton Gill MD Aug 12, 2017 11:15
[2017-08-12] MEDS ORDERED: CLIN150 PO (11:20)
[2017-08-12] MEDS ORDERED: LEVO25TA4 PO (11:20)
[2017-08-12] MEDS ORDERED: OXYC-392 PO (11:20)
[2017-08-12] MEDS ORDERED: K-PHTAB PO (11:20)
[2017-08-12] MEDS ORDERED: LORA-392 PO (11:20)
[2017-08-12] MEDS ORDERED: CARA1TAB6 PO (11:20)
[2017-08-12] MEDS ORDERED: POTA-163 PO (11:20)
[2017-08-12] MEDS ORDERED: NYST1000 SWISH-SWAL (11:20)
[2017-08-12] MEDS ORDERED: SPIR25 PO ×2 (11:20→15:14)
[2017-08-12] MEDS ORDERED: PRED20 PO (11:20)
[2017-08-12 12:00] VITALS: BP 125/74; PULSE 80; RESP 18; TEMP 98.6; O2SAT 98
== END 2017-08-12 15:07 | disposition home or self-care (01) | DRG 641 ==
LOC: NEPE 08:37 → NEDA 11:25 → HOCA 15:00
PROVIDERS: ADMIT Hospitalist; ATTEND Hospitalist
DX: E87.6 Hypokalemia (principal); E86.0 Dehydration; B37.0 Candidal stomatitis; M32.9 Systemic lupus erythematosus, unspecified; N17.9 Acute kidney failure, unspecified; K50.90 Crohn's disease, unspecified, without complications; K31.84 Gastroparesis; N18.3 Chronic kidney disease, stage 3 (moderate); F41.9 Anxiety disorder, unspecified; G40.909 Epilepsy, unspecified, not intractable, without status epilepticus; R79.89 Other specified abnormal findings of blood chemistry; E03.9 Hypothyroidism, unspecified
CPT/HCPCS: 71010; 76775; 80048; 80053; 81001; 82088; 82550; 82552; 83690; 83735; 83935; 84100; 84133; 84244; 84439; 84443; 84484; 84703; 85025; 85610; 85730; 86038; 86225; 93005; 96360; 96361; J1642; J1644; J2997; J3480; J7030; J7040; J7512

== ENCOUNTER 2017-08-14 18:50 | Emergency (ER) | payer OTHER ==
[~2017-08-14 18:50] MED LIST changes: +CARA1TAB6 PO; +LEVO25TA4 PO; +LORA-392 PO; -LORA-474 PO; +NYST1000 SWISH-SWAL; +SPIR25 PO
[2017-08-14 18:52] VITALS: BP 149/82; PULSE 87; RESP 16; TEMP 99; O2SAT 99
[2017-08-14] MEDS ORDERED: SODIUM CHLOR 0.9% 1000 ML INJ 1,000 ML IV SCH ×2 (20:00→21:48)
[2017-08-14 20:08] VITALS: BP 169/87; PULSE 89; RESP 16; O2SAT 98
--- NOTE | 2017-08-14 20:27 | RADRPT ---
EXAM DATE/TIME: 08/14/2017 20:08 [facility] COMPARISON: CHEST SINGLE AP, August 09, 2017, 9:03. INDICATIONS : Chest pain. MEDICAL HISTORY : Gastroparesis. Lupus. SURGICAL HISTORY : Appendectomy. Hysterectomy. ENCOUNTER: Subsequent ACUITY: 1 day PAIN SCORE: 3/10 LOCATION: Bilateral chest FINDINGS: The cardiac silhouette is normal in transverse diameter. The lungs are free of acute parenchymal opac ity. No effusions are identified. [id number] is in place via right internal jugular approach with its tip in the superior vena cava. CONCLUSION: 1. No acute cardiopulmonary disease. Albert Villanueva MD on August 14, 2017 at 20:25 Board Certified Radiologist. This report was verified electronically.
[2017-08-14 20:48] LABS: AUTOMATED NEUTROPHIL # 5.5 TH/MM3 (1.8-7.7); BASOPHIL % 0.6 % (0.0-2.0); EOSINOPHIL # 0.1 TH/MM3 (0-0.4); EOSINOPHIL % 1.9 % (0.0-4.0); HEMATOCRIT 38.1 % (35.0-46.0); HEMO FLAGS DIFF FINAL; LYMPH % 15.8 % (9.0-44.0); LYMPHOCYTE # 1.2 TH/MM3 (1.0-4.8); MEAN CELL VOLUME 86.8 FL (80.0-100.0); MEAN CORPUSCULAR HEMOGLOBIN 28.4 PG (27.0-34.0); MEAN CORPUSCULAR HGB CONC 32.7 % (32.0-36.0); MONO % 6.5 % (0.0-8.0); NEUT % 75.2 % (16.0-70.0); PLATELET COUNT 161 TH/MM3 (150-450); RED BLOOD COUNT 4.39 MIL/MM3 (4.00-5.30); WHITE BLOOD COUNT 7.3 TH/MM3 (4.0-11.0)
[2017-08-14 20:53] LABS: BLOOD, URINE NEG (NEG); COMMENT (UR) CULT NOT INDICATED; CULTURE IF INDICATED CULT NOT INDICATED; GLUCOSE,URINE NEG (NEG); HYALINE CAST, URINE 7 /lpf (RARE); KETONE, URINE NEG (NEG); NITRITE,URINE NEG (NEG); SQUAMOUS EPITHELIAL CELL URINE 1 /hpf (0-5); URINE COLOR LIGHT-YELLOW (YELLW/STRAW)
--- NOTE | 2017-08-14 20:54 | PD ---
HPI Chief Complaint: Medical Clearance Time Seen by Provider: 19:59 Travel History International Travel<30 days: No Contact w/Intl Traveler<30days: No Traveled to known affect area: No History of Present Illness HPI 41-year-old female that presents to the ED for evaluation of possible hypokalemia. Patient has a history of hypokalemia and states that she's had the same symptoms. She was released recently and states that there was a mishap with the prescriptions and she was not able to get her prescriptions filled until today. Per patient she has genetical abnormality where she has difficulty absorbing potassium. Per patient she feels jittery isn't has chest discomfort as well as body aches. She also has a history of lupus. She states that he feels similar to her previous episodes. She states that she's also has a history of thyroid disease. Per patient she is following with [facility] for her care for the dermatological aspect that she has to be on immunosuppressants in the past. Currently she is only taking prednisone. She denies any fevers chills or sweats. No other medical issues at this time. Per patient she has bodyaches all but gone and the pain is 10 out of 10. Per patient is very similar to her hypokalemia in the past. She has had multiple admissions for similar as well as kidney failure in the past. PFSH Past Medical History Arthritis: No Asthma: No Atrial Fibrillation: No Autoimmune Disease: Yes (LUPUS ) Blood Disorders: No Bipolar Disorder: Yes Anxiety: Yes Depression: No Heart Rhythm Problems: Yes (HYPOKALEMIA RELATED AFIB) Cancer: Yes (APPENDIX 2002) Cardiovascular Problems: No High Cholesterol: No Chemotherapy: No Chest Pain: No Congestive Heart Failure: No COPD: No Cerebrovascular Accident: No Diabetes: No Diminished Hearing: No Endocrine: No Gastrointestinal Disorders: Yes (CROHNS, GASTROPARESIS) GERD: Yes Genitourinary: Yes (RECURRENT UTI'S, NEPHRITIS) Headaches: Yes Hiatal Hernia: No Heparin Induced Thrombocytopen: No Hypertension: No Immune Disorder: Yes (CROHN'S) Implanted Vascular Access Dvce: Yes Kidney Stones: Yes Musculoskeletal: No Neurologic: Yes (EPILEPSY) Psychiatric: No Reproductive: No Respiratory: No Immunizations Current: Yes Migraines: Yes Pneumonia: Yes Radiation Therapy: No Renal Failure: No Seizures: Yes (juvenile epilepsy) Sickle Cell Disease: No Sleep Apnea: No Thyroid Disease: No Ulcer: Yes (Pt states she has severe ulcers from throat to rectum) PNEUMOCCOCAL Vaccine (Year): 3 ?: Not : 2 Para: 1 Miscarriage: 1 : 0 Ectopic : Yes (AT 17 YEARS OF AGE) Ovarian Cysts: Yes Past Surgical History Abdominal Surgery: Yes (multiple Laps) AICD: No Appendectomy: Yes Arteriovenous Shunt: No Body Medical Devices: RIGHT SUBCLAVIAN PORT VAD Cardiac Surgery: No Ear Surgery: No Endocrine Surgery: Yes Eye Surgery: No Genitourinary Surgery: Yes (Interstitial cystitis) Gynecologic Surgery: Yes Hysterectomy: Yes (PARTIAL) Insulin Pump: No Joint Replacement: No Neurologic Surgery: No Oral Surgery: Yes (Removal of abscess) Pacemaker: No Thoracic Surgery: No Other Surgery: Yes (endometriosis, ovarian cyst,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,appendectomy, cervix partial re) Social History Alcohol Use: No (PT DENIES ) Tobacco Use: No Substance Use: No Allergies-Medications (Allergen,Severity, Reaction): Coded Allergies: Fish Containing Products (Unverified Allergy, Severe, SWELLING IN THROAT, SOB, 08/14/17) cephalexin (Unverified Allergy, Severe, RASH,SWELLING, 08/14/17) ketorolac (Unverified Allergy, Severe, RASH, 08/14/17) penicillin G (Unverified Allergy, Severe, RASH,SWELLING, 08/14/17) prochlorperazine (Unverified Allergy, Mild, DYSTONIC REACTION, 08/14/17) promethazine (Unverified Allergy, Mild, DYSTONIC REACTION, 08/14/17) gabapentin (Unverified Adverse Reaction, Severe, SEIZURES, 08/14/17) Reported Meds & Prescriptions Reported Meds & Active Scripts Active Clindamycin (Clindamycin HCl) 150 Mg Cap 300 Mg PO Q6H 10 Days Ketorolac (Ketorolac Tromethamine) 10 Mg Tab 10 Mg PO Q6HR PRN Magic Mouthwash Adult Liq (Multi-Ingredient Mouthwash/Gargle) 120 Ml Susp 5 Ml SWISH-SWAL ACHS Each 5mL contains: Nystatin 200,000units, Diphenhydramine 4.25mg, Viscous Lidocaine 10mg, Shepard syrup 0.8 mL Lortab (Hydrocodone-Acetaminophen) 5-325 Mg Tab 1 Tab PO Q6H PRN Levothyroxine (Levothyroxine Sodium) 25 Mcg Tab 25 Mcg PO DAILY@0600 Aldactone (Spironolactone) 25 Mg Tab 25 Mg PO BIDPC Ativan (Lorazepam) 0.5 Mg Tab 0.5 Mg PO Q6H PRN Oxycodone (Oxycodone HCl) 5 Mg Tab 5 Mg PO Q6H PRN Aldactone (Spironolactone) 25 Mg Tab 25 Mg PO BID@09,18 Nystatin Liq 100,000 unit/ml Susp 5 Ml SWISH-SWAL QID Carafate (Sucralfate) 1 Gram Tab 1 Gm PO TID On empty stomach Cleocin (Clindamycin HCl) 150 Mg Cap 300 Mg PO Q6HR 7 Days Prednisone 20 Mg Tab 40 Mg PO DAILY Take 40mg (2 tabs) daily x7 days, then 20mg (1 tab) daily x7 days, then 10mg (1/2 tab) daily x7days, then stop. Potassium Chloride ER (Potassium Chloride) 20 Meq Tab 40 Meq PO TID K-Phos (Potassium Phosphate Monobasic) 500 Mg Tab 1,000 Mg PO BID Ferrous Sulfate 325 Mg (65 Mg Iron) Tablet 325 Mg PO BIDPC Pantoprazole (Pantoprazole Sodium) 40 Mg Tab 40 Mg PO HS Vitamin D3 (Cholecalciferol) 10,000 Unit Cap 20,000 Units PO Q3D @ HS Reported Magnesium Oxide 400 Mg Tab 400 Mg PO DAILY Review of Systems Except as stated in HPI: all other systems reviewed are Neg Physical Exam Narrative GENERAL: SKIN: Warm and dry. HEAD: Atraumatic. Normocephalic. EYES: Pupils equal and round. No scleral icterus. No injection or drainage. ENT: No nasal bleeding or discharge. Mucous membranes pink and moist. Tongue is midline. No uvula deviation. NECK: Trachea midline. No JVD. CARDIOVASCULAR: Regular rate and rhythm. No murmurs, S3, S4. Patient has a port on the right chest. RESPIRATORY: No accessory muscle use. Clear to auscultation. Breath sounds equal bilaterally. GASTROINTESTINAL: Abdomen soft, non-tender, nondistended. Hepatic and splenic margins not palpable. MUSCULOSKELETAL: Extremities without clubbing, cyanosis, or edema. No obvious deformities. Full range of motion of the upper and lower external his bilaterally. 2+ pulses bilaterally. NEUROLOGICAL: Awake and alert. No obvious cranial nerve deficits. Motor grossly within normal limits. Five out of 5 muscle strength in the arms and legs. Normal speech. PSYCHIATRIC: Appropriate mood and affect; insight and judgment normal. Data Data Last Documented VS Vital Signs Date Time Temp Pulse Resp B/P (MAP) Pulse Ox O2 Delivery O2 Flow Rate FiO2 08/14/17 23:09 08/14/17 22:52 93 18 99 Room Air 08/14/17 18:52 99.0 Orders Orders Complete Blood Count With Diff (08/14/17 20:00) Comprehensive Metabolic Panel (08/14/17:00) Urinalysis - C+S If Indicated (08/14/17 20:00) Iv Access Insert/Monitor (08/14/17:00) Ecg Monitoring (08/14/17:00) Oximetry (08/14/17 20:00) Sodium Chlor 0.9% 1000 Ml Inj (Ns 1000 M (08/14/17 20:00) Electrocardiogram (08/14/17 20:00) Ckmb (Isoenzyme) Profile (08/14/17 20:05) Troponin I (08/14/17 20:05) Magnesium (Mg) (08/14/17 20:05) Thyroid Stimulating Hormone (08/14/17 20:05) Chest, Single Ap (08/14/17 20:05) Lorazepam Inj (Ativan Inj) (08/14/17 21:45) Sodium Chlor 0.9% 1000 Ml Inj (Ns 1000 M (08/14/17 21:48) Sodium Chloride 0.9% Flush (Ns Flush) (08/14/17 23:00) Heparin Central Flush (Heparin Central F (08/14/17 23:00) Labs Laboratory Tests Test 08/14/17 20:38 White Blood Count 7.3 TH/MM3 Red Blood Count 4.39 MIL/MM3 Hemoglobin 12.4 GM/DL Hematocrit 38.1 % Mean Corpuscular Volume 86.8 FL Mean Corpuscular Hemoglobin 28.4 PG Mean Corpuscular Hemoglobin Concent 32.7 % Red Cell Distribution Width 15.0 % Platelet Count 161 TH/MM3 Mean Platelet Volume 6.7 FL Neutrophils (%) (Auto) 75.2 % Lymphocytes (%) (Auto) 15.8 % Monocytes (%) (Auto) 6.5 % Eosinophils (%) (Auto) 1.9 % Basophils (%) (Auto) 0.6 % Neutrophils # (Auto) 5.5 TH/MM3 Lymphocytes # (Auto) 1.2 TH/MM3 Monocytes # (Auto) 0.5 TH/MM3 Eosinophils # (Auto) 0.1 TH/MM3 Basophils # (Auto) 0.0 TH/MM3 CBC Comment DIFF FINAL Differential Comment Urine Color LIGHT-YELLOW Urine Turbidity CLEAR Urine pH 6.0 Urine Specific [place] 1.012 Urine Protein NEG mg/dL Urine Glucose (UA) NEG mg/dL Urine Ketones NEG mg/dL Urine Occult Blood NEG Urine Nitrite NEG Urine Bilirubin NEG Urine Urobilinogen LESS THAN 2.0 MG/DL Urine Leukocyte Esterase NEG Urine RBC LESS THAN 1 /hpf Urine WBC 1 /hpf Urine Squamous Epithelial Cells 1 /hpf Urine Hyaline Casts 7 /lpf Microscopic Urinalysis Comment CULT NOT INDICATED Blood Urea Nitrogen 31 MG/DL Creatinine 1.94 MG/DL Random Glucose 98 MG/DL Total Protein 6.9 GM/DL Albumin 3.6 GM/DL Calcium Level 9.6 MG/DL Alkaline Phosphatase 44 U/L Aspartate Amino Transf (AST/SGOT) 13 U/L Alanine Aminotransferase (ALT/SGPT) 15 U/L Total Bilirubin 0.1 MG/DL Sodium Level 140 MEQ/L Potassium Level 4.2 MEQ/L Chloride Level 106 MEQ/L Carbon Dioxide Level 22.9 MEQ/L Anion Gap 11 MEQ/L Estimat Glomerular Filtration Rate 29 ML/MIN Magnesium Level 1.7 MG/DL Total Creatine Kinase 38 U/L Troponin I LESS THAN 0.02 NG/ML Thyroid Stimulating Hormone 3rd Gen 0.968 uIU/ML MDM Medical Decision Making Medical Screen Exam Complete: Yes Emergency Medical Condition: Yes Medical Record Reviewed: Yes Interpretation(s) CBC & BMP Diagram 08/14/17 20:38 Total Protein 6.9, Albumin 3.6, Calcium Level 9.6, Alkaline Phosphatase 44 L, Aspartate Amino Transf (AST/SGOT) 13 L, Alanine Aminotransferase (ALT/SGPT) 15, Total Bilirubin 0.1 L EKG shows sinus rhythm with a sign of acute ischemia or arrhythmia by me and attending. TSH within normal limits. Troponin and CK-MB negative. CXR negative Differential Diagnosis Electrolyte normality versus kidney failure versus acute on chronic pain versus anxiety versus kidney injury versus lupus versus chest pain versus atypical chest pain versus hypokalemia Narrative Course 41-year-old female that presents to the ED for evaluation of possible hypokalemia. Patient was properly examined and was found to have signs and symptoms of unclear etiology at this time. Labs and imaging were ordered. Labs and imaging showed no sign of acute disease. Her kidney function appears to be a little bit off from 2 days ago she's been worse before. Case was discussed with my attending Dr. Hernandez who was made aware of findings and review records and agrees with discharge. Patient did asked that I give her a prescription for her center which apparently was missed. She was told to take her medications today that she got. Follow with PCP. See ED for worsening symptoms. Before being discharged I was asked to see the patient again. She was complaining of some dental pain and she wanted to know we could evaluate her. She does appear to have what appears to be bad dentition with infection especially on the back and lower jaw. Patient also requested that we change her anxiety medication to valium. I told the patient that she needs to follow with her doctor to change her meds. She will be given a prescription clindamycin as well as magic mouthwash. She was given a short prescription for Lortab for pain. She was told to follow with her doctor. See ED worsening symptoms. Diagnosis Primary Impression: Chronic kidney disease Qualified Codes: N18.9 - Chronic kidney disease, unspecified Additional Impressions: Hypothyroid Qualified Codes: E03.9 - Hypothyroidism, unspecified Dental infection Patient Instructions: General Instructions, Narcotic given in the ED Additional Instructions: Taking medications prescribed by her doctors. See ED for worsening symptoms. You're supposed to take 25 mEq of Synthroid. This was prescribed to you today. Your potassium today is 4.0. Follow up with your doctor to have your pain meds and anxiolytics changed. Med/Other Pt SpecificInfo: Prescription(s) given Scripts Clindamycin (Clindamycin) 150 Mg Cap 300 MG PO Q6H for Infection for 10 Days, #80 CAP 0 Refills Prov: Sha Hernandez MD 08/14/17 Dbqobube-Kmpeybuqjaaahsj-Ymqfjxmwa Liq (Magic Mouthwash Adult Liq) 120 Ml Susp 5 ML SWISH-SWAL ACHS for Mouth sores, #120 ML 0 Refills Each 5mL contains: Nystatin 200,000units, Diphenhydramine 4.25mg, Viscous Lidocaine 10mg, Shepard syrup 0.8 mL Prov: Sha Hernandez MD 08/14/17 Hydrocodone-Acetaminophen (Lortab) 5-325 Mg Tab 1 TAB PO Q6H Y for PAIN, #14 TAB 0 Refills Prov: Sha Hernandez MD 08/14/17 Levothyroxine (Levothyroxine) 25 Mcg Tab 25 MCG PO DAILY@0600 for Thyroid Supplement, #30 TAB 3 Refills Prov: Sha Hernandez MD 08/14/17 Disposition: 01 DISCHARGE HOME Condition: Stable Leroy Mejia Aug 14, 2017 20:54
[2017-08-14 21:31] LABS: ALKALINE PHOSPHATASE 44 U/L (45-117); ALT (GPT) 15 U/L (10-53); ANION GAP 11 MEQ/L (5-15); AST (GOT) 13 U/L (15-37); BICARBONATE 22.9 MEQ/L (21.0-32.0); BLOOD UREA NITROGEN 31 MG/DL (7-18); CHLORIDE 106 MEQ/L (98-107); GLOMERULAR FILTRATION RATE 29 ML/MIN (>89); POTASSIUM 4.2 MEQ/L (3.5-5.1); SODIUM (NA) 140 MEQ/L (136-145); TOTAL BILIRUBIN ADULT 0.1 MG/DL (0.2-1.0)
[2017-08-14] MEDS ORDERED: LORazepam 2 MG/ML VIAL IV PUSH ONE (21:45)
[2017-08-14 21:59] LABS: MAGNESIUM 1.7 MG/DL (1.5-2.5)
[2017-08-14 22:11] LABS: CREATINE KINASE 38 U/L (26-192)
[2017-08-14] MEDS ORDERED: LEVO25TA4 PO (22:34)
[2017-08-14] MEDS ORDERED: HYDR-3533 PO (22:49)
[2017-08-14] MEDS ORDERED: MAGICADU2 SWISH-SWAL (22:49)
[2017-08-14] MEDS ORDERED: KETO10 PO (22:49)
[2017-08-14] MEDS ORDERED: CLIN1CAP5 PO (22:49)
[2017-08-14 22:52] VITALS: BP 153/87; PULSE 93; RESP 18; O2SAT 99
[2017-08-14] MEDS ORDERED: SODIUM CHLORIDE 0.9% FLUSH 10 ML FLUSH IVF PRN (23:00)
--- NOTE | 2017-08-15 10:05 | EKG ---
Date Performed: 08/14/2017 Time Performed: 20:39:13 PTAGE: 41 years EKG: ECTOPIC ATRIAL RHYTHM INTRAVENTRICULAR CONDUCTION DELAY Nonspecific T-wave changes ABNORMAL ECG PREVIOUS TRACING : 08/09/2017 09.41 Compared to prior study, nonspecific ST-T changes are more prominent. QRS is also widened. Clinical correlation is recommended. DOCTOR: Albert Garcia Interpretating Date/Time 08/15/2017 10:01:32
== END 2017-08-14 23:19 | disposition home or self-care (01) ==
LOC: NEPD 18:50
DX: N18.9 Chronic kidney disease, unspecified (principal); E03.9 Hypothyroidism, unspecified; K04.7 Periapical abscess without sinus; M32.9 Systemic lupus erythematosus, unspecified; R94.31 Abnormal electrocardiogram [ECG] [EKG]
CPT/HCPCS: 71010; 80053; 81001; 82550; 83735; 84443; 84484; 85025; 93005; 96360; 96361; 99285; J1642; J2060; J7030

== ENCOUNTER 2017-08-15 15:04 | Emergency (ER) | payer OTHER ==
[~2017-08-15] VITALS: Ht 175.3 cm; Wt 60.0 kg
[~2017-08-15 15:04] MED LIST changes: +CLIN1CAP5 PO; +HYDR-3533 PO; +MAGICADU2 SWISH-SWAL
[2017-08-15 15:06] VITALS: BP 150/80; PULSE 85; RESP 16; TEMP 98.9; O2SAT 97
--- NOTE | 2017-08-15 15:26 | PD ---
Physical Exam Date Seen by Provider: Aug 15, 2017 Time Seen by Provider: 15:25 Narrative 41 yo female here for evaluation of dizzyness, nausea and possible DTs. History of kidney disease and hypokalemia. Seen here yesterday. No chest pain or SOB. Feeling very anxious. Some of her meds were changed at prior admission. Vitals are stable in triage. Awaiting bed placement. Data Data Last Documented VS Vital Signs Date Time Temp Pulse Resp B/P (MAP) Pulse Ox O2 Delivery O2 Flow Rate FiO2 08/15/17 15:06 98.9 85 16 150/80 (103) 97 Room Air [facility] Medical Record Reviewed: Yes Supervised Visit with ARY: No Leroy Mejia Aug 15, 2017 15:26
--- NOTE | 2017-08-15 19:43 | PD ---
HPI Chief Complaint: Medical Clearance Time Seen by Provider: 19:10 Travel History International Travel<30 days: No Contact w/Intl Traveler<30days: No Traveled to known affect area: No History of Present Illness HPI Is a 41-year-old woman who presents to the emergency department saying that she feels bad. She describes multiple symptoms including feeling a infection feeling in her jaw and in her teeth, as well as tingling feeling in her neck and shoulders, and some abdominal pain. She states she feels like she is having a panic attack. She is a history of frequent ED visits and hospitalizations related to her chronic medical problems including lupus IBS and bipolar disorder. She also reports a history of IBD that I don't see previously documented on an initial look. She frequently has trouble with hypokalemia and previous admissions. She is on chronic opiates and chronic benzodiazepines as well as potassium and spironolactone. She states she had funny feelings which took spironolactone in the past also. History Past Medical History Narrative Medical Lupus IBS, patient reports history of Crohn's as well Bipolar disorder PNEUMOCCOCAL Vaccine (Year): 3 LMP: 08/10/17 : 2 Para: 1 Social History Alcohol Use: No (PT DENIES ) Tobacco Use: No Allergies-Medications (Allergen,Severity, Reaction): Coded Allergies: Fish Containing Products (Unverified Allergy, Severe, SWELLING IN THROAT, SOB, 08/14/17) cephalexin (Unverified Allergy, Severe, RASH,SWELLING, 08/14/17) ketorolac (Unverified Allergy, Severe, RASH, 08/14/17) penicillin G (Unverified Allergy, Severe, RASH,SWELLING, 08/14/17) prochlorperazine (Unverified Allergy, Mild, DYSTONIC REACTION, 08/14/17) promethazine (Unverified Allergy, Mild, DYSTONIC REACTION, 08/14/17) gabapentin (Unverified Adverse Reaction, Severe, SEIZURES, 08/14/17) Reported Meds & Prescriptions Reported Meds & Active Scripts Active Clindamycin (Clindamycin HCl) 150 Mg Cap 300 Mg PO Q6H 10 Days Magic Mouthwash Adult Liq (Multi-Ingredient Mouthwash/Gargle) 120 Ml Susp 5 Ml SWISH-SWAL ACHS Each 5mL contains: Nystatin 200,000units, Diphenhydramine 4.25mg, Viscous Lidocaine 10mg, Shepard syrup 0.8 mL Lortab (Hydrocodone-Acetaminophen) 5-325 Mg Tab 1 Tab PO Q6H PRN Levothyroxine (Levothyroxine Sodium) 25 Mcg Tab 25 Mcg PO DAILY@0600 Aldactone (Spironolactone) 25 Mg Tab 25 Mg PO BIDPC Ativan (Lorazepam) 0.5 Mg Tab 0.5 Mg PO Q6H PRN Oxycodone (Oxycodone HCl) 5 Mg Tab 5 Mg PO Q6H PRN Aldactone (Spironolactone) 25 Mg Tab 25 Mg PO BID@09,18 Nystatin Liq 100,000 unit/ml Susp 5 Ml SWISH-SWAL QID Carafate (Sucralfate) 1 Gram Tab 1 Gm PO TID On empty stomach Cleocin (Clindamycin HCl) 150 Mg Cap 300 Mg PO Q6HR 7 Days Prednisone 20 Mg Tab 40 Mg PO DAILY Take 40mg (2 tabs) daily x7 days, then 20mg (1 tab) daily x7 days, then 10mg (1/2 tab) daily x7days, then stop. Potassium Chloride ER (Potassium Chloride) 20 Meq Tab 40 Meq PO TID K-Phos (Potassium Phosphate Monobasic) 500 Mg Tab 1,000 Mg PO BID Ferrous Sulfate 325 Mg (65 Mg Iron) Tablet 325 Mg PO BIDPC Pantoprazole (Pantoprazole Sodium) 40 Mg Tab 40 Mg PO HS Vitamin D3 (Cholecalciferol) 10,000 Unit Cap 20,000 Units PO Q3D @ HS Reported Magnesium Oxide 400 Mg Tab 400 Mg PO DAILY Review of Systems Except as stated in HPI: all other systems reviewed are Neg Physical Exam Narrative GENERAL: Well-appearing 41 year-old woman, little bit shaky and tremulous, thin , nontoxic. SKIN: Focused skin assessment warm/dry. HEAD: Atraumatic. Normocephalic. EYES: Pupils equal and round. No scleral icterus. No injection or drainage. ENT: No nasal bleeding or discharge. Mucous membranes pink and moist. She is poor dentition. Her right front tooth is a little bit of area of ulceration and some gingival irritation but there is no obvious fluctuant abscess purulence erythema or swelling. NECK: Trachea midline. No JVD. CARDIOVASCULAR: Regular rate and rhythm. No murmur appreciated. RESPIRATORY: No accessory muscle use. Clear to auscultation. Breath sounds equal bilaterally. GASTROINTESTINAL: Abdomen soft, non-tender, nondistended. Hepatic and splenic margins not palpable. MUSCULOSKELETAL: No obvious deformities. No edema. NEUROLOGICAL: Awake and alert. No obvious cranial nerve deficits. Motor grossly within normal limits. Normal speech. PSYCHIATRIC: Slightly anxious, tremulous. Data Data Last Documented VS Vital Signs Date Time Temp Pulse Resp B/P (MAP) Pulse Ox O2 Delivery O2 Flow Rate FiO2 08/15/17 15:06 98.9 85 16 150/80 (103) 97 Room Air Orders Orders Lorazepam Inj (Ativan Inj) (08/15/17 19:45) Ondansetron Odt (Zofran Odt) (08/15/17 19:45) [facility] Medical Decision Making Medical Screen Exam Complete: Yes Emergency Medical Condition: Yes Differential Diagnosis Anxiety, adverse effect to medication, opiate withdrawal, electrolyte abnormalities, other Narrative Course Medical decision-making This 41 year-old woman presents emergency Department anxiety symptoms. She states she feels like she may anxiety attack is multiple other somatic complaints as well. She was just seen yesterday and had extensive laboratory testing done. Her creatinine was a little bit elevated. She is nontoxic. She has severe chronic medical problems. I don't think she needs repeat lab work. She has specialty follow-up and [facility] for medical problems. I discussed this with her, we decided to focus on somatic treatment is symptomatic treatment. Anxiety feelings are bothering her the most as well as some nausea and so we will give her a dose of Ativan and some Zofran recommend that she follow-up closely with her specialist and her outpatient physician. Diagnosis Primary Impression: Anxiety with somatization Additional Instructions: Continue current medications. Follow closely with her primary physician and/or specialty consultants. Return to the emergency department for any new or worsening symptoms. Med/Other Pt SpecificInfo: No Change to Meds Disposition: 01 DISCHARGE HOME Condition: Stable Feliz Saldana MD Aug 15, 2017 19:43
[2017-08-15] MEDS ORDERED: ONDANSETRON ODT 4 MG TAB PO ONE (19:45)
[2017-08-15] MEDS ORDERED: LORazepam 2 MG/ML VIAL IM ONE (19:45)
[2017-08-15 20:08] VITALS: BP 148/72
== END 2017-08-15 20:08 | disposition home or self-care (01) ==
LOC: NEPD 15:04
DX: R11.0 Nausea (principal)
CPT/HCPCS: 96372; 99284; J2060

== ENCOUNTER 2017-09-10 19:58 | Observation (INO) | payer OTHER ==
[~2017-09-10] VITALS: Ht 175.3 cm; Wt 60.0 kg
[~2017-09-10 19:58] MED LIST changes: +CLIN150C14 PO; -CLIN1CAP5 PO; +FERR325T18 PO; -FERR325T8 PO
[2017-09-10 19:59] VITALS: BP 143/89; PULSE 98; RESP 16; TEMP 99.4; O2SAT 96
[2017-09-10 20:17] VITALS: BP 132/83; PULSE 99; RESP 16; TEMP 98.8; O2SAT 98
[2017-09-10 21:34] LABS: BACTERIA, URINE RARE /hpf; BLOOD, URINE MOD (NEG); COMMENT (UR) CULT NOT INDICATED; CULTURE IF INDICATED CULT NOT INDICATED; GLUCOSE,URINE NEG (NEG); HYALINE CAST, URINE 3 /lpf (RARE); KETONE, URINE NEG (NEG); MUCUS URINE FEW /lpf (OCC); NITRITE,URINE NEG (NEG); SQUAMOUS EPITHELIAL CELL URINE 2 /hpf (0-5); URINE COLOR LIGHT-YELLOW (YELLW/STRAW)
[2017-09-10 21:40] LABS: AUTOMATED NEUTROPHIL # 5.8 TH/MM3 (1.8-7.7); BASOPHIL % 0.5 % (0.0-2.0); EOSINOPHIL # 0.3 TH/MM3 (0-0.4); EOSINOPHIL % 3.4 % (0.0-4.0); HEMATOCRIT 24.6 % (35.0-46.0); HEMO FLAGS DIFF FINAL; LYMPH % 14.5 % (9.0-44.0); LYMPHOCYTE # 1.1 TH/MM3 (1.0-4.8); MEAN CELL VOLUME 86.6 FL (80.0-100.0); MEAN CORPUSCULAR HEMOGLOBIN 27.6 PG (27.0-34.0); MEAN CORPUSCULAR HGB CONC 31.9 % (32.0-36.0); MONO % 6.5 % (0.0-8.0); NEUT % 75.1 % (16.0-70.0); PLATELET COUNT 170 TH/MM3 (150-450); RED BLOOD COUNT 2.84 MIL/MM3 (4.00-5.30); RED CELL DISTRIBUTION WIDTH 15.3 % (11.6-17.2); WHITE BLOOD COUNT 7.7 TH/MM3 (4.0-11.0)
[2017-09-10 22:00] VITALS: BP 115/74; PULSE 84; RESP 17; O2SAT 97
[2017-09-10 22:48] LABS: AST (GOT) 11 U/L (15-37); CHLORIDE 107 MEQ/L (98-107); POTASSIUM 3.6 MEQ/L (3.5-5.1); SODIUM (NA) 139 MEQ/L (136-145)
[2017-09-10 23:16] LABS: ALKALINE PHOSPHATASE 48 U/L (45-117); ALT (GPT) 15 U/L (10-53); ANION GAP 14 MEQ/L (5-15); BICARBONATE 18.5 MEQ/L (21.0-32.0); BLOOD UREA NITROGEN 25 MG/DL (7-18); GLOMERULAR FILTRATION RATE 25 ML/MIN (>89); TOTAL BILIRUBIN ADULT LESS THAN 0.1 MG/DL (0.2-1.0)
[2017-09-10 23:22] LABS: CREATINE KINASE 52 U/L (26-192)
--- NOTE | 2017-09-10 23:48 | PD ---
HPI Chief Complaint: Edema Time Seen by Provider: 20:17 Travel History International Travel<30 days: No Contact w/Intl Traveler<30days: No Traveled to known affect area: No History of Present Illness HPI Patient is a 41-year-old female coming in with multiple complaints she has a long history of lupus as well as hypokalemia she is on Aldactone to preserve her potassium she reports having a renal insufficiency issue she reports being on prednisone 5 mg a day for multiple autoimmune issues and today she says she thinks her legs are swelling more than usual she is worried that she is hypokalemic and in renal failure she has come in multiple times for similar PFSH Past Medical History Arthritis: No Asthma: No Atrial Fibrillation: No Autoimmune Disease: Yes (LUPUS ) Blood Disorders: No Bipolar Disorder: Yes Anxiety: Yes Depression: No Heart Rhythm Problems: Yes (HYPOKALEMIA RELATED AFIB) Cancer: Yes (APPENDIX 2002) Cardiovascular Problems: No High Cholesterol: No Chemotherapy: No Chest Pain: No Congestive Heart Failure: No COPD: No Cerebrovascular Accident: No Diabetes: No Diminished Hearing: No Endocrine: No Gastrointestinal Disorders: Yes (GASTROPARESIS) GERD: Yes Genitourinary: Yes (RECURRENT UTI'S, NEPHRITIS) Headaches: Yes Hiatal Hernia: No Heparin Induced Thrombocytopen: No Hypertension: No Immune Disorder: Yes (CROHN'S) Implanted Vascular Access Dvce: Yes (RIGHT SUBCLAVIAN PORT VAD) Kidney Stones: Yes Musculoskeletal: No Neurologic: Yes (EPILEPSY) Psychiatric: No Reproductive: No Respiratory: No Immunizations Current: Yes Migraines: Yes Pneumonia: Yes Radiation Therapy: No Renal Failure: No Seizures: Yes (juvenile epilepsy) Sickle Cell Disease: No Sleep Apnea: No Thyroid Disease: No Ulcer: Yes (Pt states she has severe ulcers from throat to rectum) PNEUMOCCOCAL Vaccine (Year): 3 ?: Not : 2 Para: 1 Miscarriage: 1 : 0 Ectopic : Yes (AT 17 YEARS OF AGE) Ovarian Cysts: Yes Past Surgical History Abdominal Surgery: Yes (multiple Laps) AICD: No Appendectomy: Yes Arteriovenous Shunt: No Body Medical Devices: RIGHT SUBCLAVIAN PORT VAD Cardiac Surgery: No Ear Surgery: No Endocrine Surgery: Yes Eye Surgery: No Genitourinary Surgery: Yes (Interstitial cystitis) Gynecologic Surgery: Yes Hysterectomy: Yes (PARTIAL) Insulin Pump: No Joint Replacement: No Neurologic Surgery: No Oral Surgery: Yes (Removal of abscess) Pacemaker: No Thoracic Surgery: No Other Surgery: Yes (endometriosis, ovarian cyst,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,appendectomy, cervix partial re) Social History Alcohol Use: No (PT DENIES ) Tobacco Use: No Substance Use: No Allergies-Medications (Allergen,Severity, Reaction): Coded Allergies: Fish Containing Products (Unverified Allergy, Severe, SWELLING IN THROAT, SOB, 09/10/17) cephalexin (Unverified Allergy, Severe, RASH,SWELLING, 09/10/17) ketorolac (Unverified Allergy, Severe, RASH, 09/10/17) penicillin G (Unverified Allergy, Severe, RASH,SWELLING, 09/10/17) prochlorperazine (Unverified Allergy, Mild, DYSTONIC REACTION, 09/10/17) promethazine (Unverified Allergy, Mild, DYSTONIC REACTION, 09/10/17) gabapentin (Unverified Adverse Reaction, Severe, SEIZURES, 09/10/17) Reported Meds & Prescriptions Reported Meds & Active Scripts Active Clindamycin (Clindamycin HCl) 150 Mg Cap 300 Mg PO Q6H 10 Days Magic Mouthwash Adult Liq (Multi-Ingredient Mouthwash/Gargle) 120 Ml Susp 5 Ml SWISH-SWAL ACHS Each 5mL contains: Nystatin 200,000units, Diphenhydramine 4.25mg, Viscous Lidocaine 10mg, Shepard syrup 0.8 mL Lortab (Hydrocodone-Acetaminophen) 5-325 Mg Tab 1 Tab PO Q6H PRN Levothyroxine (Levothyroxine Sodium) 25 Mcg Tab 25 Mcg PO DAILY@0600 Aldactone (Spironolactone) 25 Mg Tab 25 Mg PO BIDPC Ativan (Lorazepam) 0.5 Mg Tab 0.5 Mg PO Q6H PRN Oxycodone (Oxycodone HCl) 5 Mg Tab 5 Mg PO Q6H PRN Aldactone (Spironolactone) 25 Mg Tab 25 Mg PO BID@09,18 Nystatin Liq 100,000 unit/ml Susp 5 Ml SWISH-SWAL QID Carafate (Sucralfate) 1 Gram Tab 1 Gm PO TID On empty stomach Cleocin (Clindamycin HCl) 150 Mg Cap 300 Mg PO Q6HR 7 Days Prednisone 20 Mg Tab 40 Mg PO DAILY Take 40mg (2 tabs) daily x7 days, then 20mg (1 tab) daily x7 days, then 10mg (1/2 tab) daily x7days, then stop. Potassium Chloride ER (Potassium Chloride) 20 Meq Tab 40 Meq PO TID K-Phos (Potassium Phosphate Monobasic) 500 Mg Tab 1,000 Mg PO BID Ferrous Sulfate 325 Mg (65 Mg Iron) Tablet 325 Mg PO BIDPC Pantoprazole (Pantoprazole Sodium) 40 Mg Tab 40 Mg PO HS Vitamin D3 (Cholecalciferol) 10,000 Unit Cap 20,000 Units PO Q3D @ HS Reported Magnesium Oxide 400 Mg Tab 400 Mg PO DAILY Review of Systems Except as stated in HPI: all other systems reviewed are Neg (patient has multiple complaints she discusses her teeth pain her leg pain or swelling) Physical Exam Narrative gENERAL: Patient is awake alert nontoxic appearing minimal swelling edema to her lower extremities bilateral SKIN: Warm and dry. She has hypopigmented areas on her face that look like a chronic atopic reaction diffuse with some granular areas as well as some hypo- pigmented areas that are flat HEAD: Atraumatic. Normocephalic. EYES: Pupils equal and round. No scleral icterus. No injection or drainage. ENT: No nasal bleeding or discharge. Mucous membranes pink and moist. She has new dentures placed upper and lower underneath these dentures she has the remains of recent extractions NECK: Trachea midline. No JVD. CARDIOVASCULAR: Regular rate and rhythm. RESPIRATORY: No accessory muscle use. Clear to auscultation. Breath sounds equal bilaterally. GASTROINTESTINAL: Abdomen soft, non-tender, nondistended. Hepatic and splenic margins not palpable. MUSCULOSKELETAL: Extremities without clubbing, cyanosis, 1+ pitting edema bilateral. No obvious deformities. NEUROLOGICAL: Awake and alert. No obvious cranial nerve deficits. Motor grossly within normal limits. Five out of 5 muscle strength in the arms and legs. Normal speech. PSYCHIATRIC: Appropriate mood and affect; insight and judgment normal. Data Data Last Documented VS Vital Signs Date Time Temp Pulse Resp B/P (MAP) Pulse Ox O2 Delivery O2 Flow Rate FiO2 09/11/17 00:00 81 18 152/99 (116) 100 Room Air 09/10/17 20:17 98.8 Orders Orders Complete Blood Count With Diff (09/10/17 20:25) Comprehensive Metabolic Panel (09/10/17 20:25) Lipase (09/10/17 20:25) Troponin I (09/10/17 20:25) Creatine Kinase (Cpk) (09/10/17 20:25) Urinalysis - C+S If Indicated (09/10/17 20:31) Morphine Inj (Morphine Inj) (09/11/17 00:00) Sodium Chlor 0.9% 250 Ml Inj (Ns 250 Ml (09/11/17 00:00) Admit Order (Ed Use Only) (09/11/17 ) Labs Laboratory Tests Test 09/10/17 20:50 White Blood Count 7.7 TH/MM3 Red Blood Count 2.84 MIL/MM3 Hemoglobin 7.8 GM/DL Hematocrit 24.6 % Mean Corpuscular Volume 86.6 FL Mean Corpuscular Hemoglobin 27.6 PG Mean Corpuscular Hemoglobin Concent 31.9 % Red Cell Distribution Width 15.3 % Platelet Count 170 TH/MM3 Mean Platelet Volume 7.3 FL Neutrophils (%) (Auto) 75.1 % Lymphocytes (%) (Auto) 14.5 % Monocytes (%) (Auto) 6.5 % Eosinophils (%) (Auto) 3.4 % Basophils (%) (Auto) 0.5 % Neutrophils # (Auto) 5.8 TH/MM3 Lymphocytes # (Auto) 1.1 TH/MM3 Monocytes # (Auto) 0.5 TH/MM3 Eosinophils # (Auto) 0.3 TH/MM3 Basophils # (Auto) 0.0 TH/MM3 CBC Comment DIFF FINAL Differential Comment Urine Color LIGHT-YELLOW Urine Turbidity CLEAR Urine pH 6.0 Urine Specific [place] 1.013 Urine Protein TRACE mg/dL Urine Glucose (UA) NEG mg/dL Urine Ketones NEG mg/dL Urine Occult Blood MOD Urine Nitrite NEG Urine Bilirubin NEG Urine Urobilinogen LESS THAN 2.0 MG/DL Urine Leukocyte Esterase NEG Urine RBC 20 /hpf Urine WBC 2 /hpf Urine Squamous Epithelial Cells 2 /hpf Urine Bacteria RARE /hpf Urine Hyaline Casts 3 /lpf Urine Mucus FEW /lpf Microscopic Urinalysis Comment CULT NOT INDICATED Blood Urea Nitrogen 25 MG/DL Creatinine 2.15 MG/DL Random Glucose 92 MG/DL Total Protein 6.4 GM/DL Albumin 3.1 GM/DL Calcium Level 8.0 MG/DL Alkaline Phosphatase 48 U/L Aspartate Amino Transf (AST/SGOT) 11 U/L Alanine Aminotransferase (ALT/SGPT) 15 U/L Total Bilirubin LESS THAN 0.1 MG/DL Sodium Level 139 MEQ/L Potassium Level 3.6 MEQ/L Chloride Level 107 MEQ/L Carbon Dioxide Level 18.5 MEQ/L Anion Gap 14 MEQ/L Estimat Glomerular Filtration Rate 25 ML/MIN Total Creatine Kinase 52 U/L Troponin I LESS THAN 0.02 NG/ML Lipase 52 U/L MDM Medical Decision Making Medical Screen Exam Complete: Yes Emergency Medical Condition: Yes Differential Diagnosis Autoimmune disease versus renal insufficiency versus hypokalemia versus chronic illness Narrative Course Patient is anemic patient has creatinine elevated CRF and she is admitted Diagnosis Primary Impression: Anemia Qualified Codes: D64.9 - Anemia, unspecified Additional Impression: Renal insufficiency Admitting Information Admitting Physician Requests: Admit Hank Jett MD Sep 10, 2017 23:48
[2017-09-11] VITALS: BP 152/99; PULSE 81; RESP 18; O2SAT 100
[2017-09-11] MEDS ORDERED: MORPHINE SULFATE 2 MG/ML INJ IV PUSH ONE
[2017-09-11] MEDS ORDERED: SODIUM CHLOR 0.9% 250 ML INJ 250 ML IV ONE
[2017-09-11] MEDS ORDERED: BISACODYL 10 MG SUPP RECTAL PRN (01:45)
[2017-09-11] MEDS ORDERED: SENNOSIDES 8.6 MG TAB PO PRN (01:45)
[2017-09-11] MEDS ORDERED: ACETAMINOPHEN 325 MG TAB PO PRN (01:45)
[2017-09-11] MEDS ORDERED: NALOXONE HCL 0.4 MG/ML AMP IV PUSH PRN (01:45)
[2017-09-11] MEDS ORDERED: MAGNESIUM HYDROXIDE SUSP 30 ML CUP PO PRN (01:45)
[2017-09-11] MEDS ORDERED: ONDANSETRON HCL 4 MG/2 ML VIAL IVP PRN (01:45)
[2017-09-11] MEDS ORDERED: LACTULOSE SYRUP 20 GM/30 ML CUP PO PRN (01:45)
[2017-09-11] MEDS ORDERED: SODIUM CHLORIDE 0.9% FLUSH 10 ML FLUSH IV FLUSH PRN (01:45)
[2017-09-11 03:09] VITALS: BP 139/87; PULSE 88; RESP 18; TEMP 98.2; O2SAT 97
[2017-09-11] MEDS ORDERED: DIAZ10 PO (03:11)
[2017-09-11] MEDS ORDERED: AMIL5 PO (03:14)
[2017-09-11] MEDS: ACETAMINOPHEN/HYDROcodone 325 MG/5 MG TAB PO PRN ×5 (03:59→23:19)
--- NOTE | 2017-09-11 04:59 | HHI.HP ---
[facility] Neeraj Gilbert D.O. Admission Diagnosis anemia Renal insufficiency Diagnoses: Travel History International Travel<30 Days: No Contact w/Intl Traveler <30 Da: No Traveled to Known Affected Are: No History of Present Illness 41-year-old female with multiple medical comorbidities including chronic hypokalemia, gastroparesis, esophagitis and questionable SLE versus other autoimmune disorder presents to the emergency department complaining of bilateral lower extremity edema, abdominal pain and concern for hypokalemia. The patient also reports dizziness upon sitting and standing. Her potassium was 3.6 today. She does have acute kidney injury with a creatinine of 2.15 with a baseline of 1.2. The patient is also anemic with an H&H of 7.8/24.6. At last admission her H&H was 10.3/30.2. Patient reports she is on 40 mg of prednisone daily for her lupus which she has been on for the past 6 months. She recently had all of her teeth extracted and is currently on clindamycin. Review of Systems Denies fever or chills Denies blurry vision, otorrhea, rhinorrhea Denies sore throat and cough No chest pain, palpitations, shortness of breath Positive abdominal pain Denies constipation/diarrhea/nausea/vomiting Positive muscle pain/positive weakness No rashes Past Family Social History Past Medical History Gastroparesis Crohn's SL E Esophagitis Colitis Chronic hypokalemia Anemia Interstitial cystitis Chronic kidney disease Hypothyroidism Past Surgical History Tooth extraction Several laparotomies for endometriosis Appendectomy Port placement J-tube placement Reported Medications Reported Meds & Active Scripts Active Clindamycin (Clindamycin HCl) 150 Mg Cap 300 Mg PO Q6H 10 Days Magic Mouthwash Adult Liq (Multi-Ingredient Mouthwash/Gargle) 120 Ml Susp 5 Ml SWISH-SWAL ACHS Each 5mL contains: Nystatin 200,000units, Diphenhydramine 4.25mg, Viscous Lidocaine 10mg, Shepard syrup 0.8 mL Lortab (Hydrocodone-Acetaminophen) 5-325 Mg Tab 1 Tab PO Q6H PRN Levothyroxine (Levothyroxine Sodium) 25 Mcg Tab 25 Mcg PO DAILY@0600 Aldactone (Spironolactone) 25 Mg Tab 25 Mg PO BIDPC Ativan (Lorazepam) 0.5 Mg Tab 0.5 Mg PO Q6H PRN Oxycodone (Oxycodone HCl) 5 Mg Tab 5 Mg PO Q6H PRN Aldactone (Spironolactone) 25 Mg Tab 25 Mg PO BID@09,18 Nystatin Liq 100,000 unit/ml Susp 5 Ml SWISH-SWAL QID Carafate (Sucralfate) 1 Gram Tab 1 Gm PO TID On empty stomach Cleocin (Clindamycin HCl) 150 Mg Cap 300 Mg PO Q6HR 7 Days Prednisone 20 Mg Tab 40 Mg PO DAILY Take 40mg (2 tabs) daily x7 days, then 20mg (1 tab) daily x7 days, then 10mg (1/2 tab) daily x7days, then stop. Potassium Chloride ER (Potassium Chloride) 20 Meq Tab 40 Meq PO TID K-Phos (Potassium Phosphate Monobasic) 500 Mg Tab 1,000 Mg PO BID Ferrous Sulfate 325 Mg (65 Mg Iron) Tablet 325 Mg PO BIDPC Pantoprazole (Pantoprazole Sodium) 40 Mg Tab 40 Mg PO HS Vitamin D3 (Cholecalciferol) 10,000 Unit Cap 20,000 Units PO Q3D @ HS Reported Amiloride (Amiloride HCl) 5 Mg Tab 5 Mg PO ONCE Valium (Diazepam) 10 Mg Tab 10 Mg PO TID PRN Magnesium Oxide 400 Mg Tab 400 Mg PO DAILY Allergies: Coded Allergies: Fish Containing Products (Unverified Allergy, Severe, SWELLING IN THROAT, SOB, 09/10/17) cephalexin (Unverified Allergy, Severe, RASH,SWELLING, 09/10/17) ketorolac (Unverified Allergy, Severe, RASH, 09/10/17) penicillin G (Unverified Allergy, Severe, RASH,SWELLING, 09/10/17) prochlorperazine (Unverified Allergy, Mild, DYSTONIC REACTION, 09/10/17) promethazine (Unverified Allergy, Mild, DYSTONIC REACTION, 09/10/17) gabapentin (Unverified Adverse Reaction, Severe, SEIZURES, 09/10/17) Family History Mother with breast and lung cancer. Father with hypertension Social History Denies alcohol, tobacco and illicit drugs Physical Exam Vital Signs Vital Signs Date Time Temp Pulse Resp B/P (MAP) Pulse Ox O2 Delivery O2 Flow Rate FiO2 09/11/17 03:09 98.2 88 18 139/87 (104) 97 09/11/17 00:00 81 18 152/99 (116) 100 Room Air 09/10/17 22:00 84 17 115/74 (88) 97 Room Air 09/10/17 20:17 98.8 99 16 132/83 (99) 98 Room Air 09/10/17 19:59 99.4 98 16 143/89 (107) 96 Room Air Physical Exam GENERAL: female sitting in bed SKIN: No rashes, ecchymoses or lesions. Cool and dry. HEAD: Atraumatic. Normocephalic. No temporal or scalp tenderness. EYES: Pupils equal round and reactive. Extraocular motions intact. No scleral icterus. No injection or drainage. ENT: Nose without bleeding, purulent drainage or septal hematoma. Throat without erythema, tonsillar hypertrophy or exudate. Uvula midline. Airway patent. NECK: Trachea midline. No JVD or lymphadenopathy. Supple, nontender, no meningeal signs. CARDIOVASCULAR: 3/6 ES. Regular rate and rhythm. RESPIRATORY: Clear to auscultation. Breath sounds equal bilaterally. No wheezes , rales, or rhonchi. GASTROINTESTINAL: Abdomen soft, diffusely tender to palpation, nondistended. No hepato-splenomegaly, or palpable masses. No guarding. MUSCULOSKELETAL: 1+ nonpitting bilateral lower extremity edema. NEUROLOGICAL: Awake and alert. Cranial nerves II through XII intact. Motor and sensory grossly within normal limits. Normal speech. Laboratory Laboratory Tests Test 09/10/17 20:50 White Blood Count 7.7 Red Blood Count 2.84 Hemoglobin 7.8 Hematocrit 24.6 Mean Corpuscular Volume 86.6 Mean Corpuscular Hemoglobin 27.6 Mean Corpuscular Hemoglobin Concent 31.9 Red Cell Distribution Width 15.3 Platelet Count 170 Mean Platelet Volume 7.3 Neutrophils (%) (Auto) 75.1 Lymphocytes (%) (Auto) 14.5 Monocytes (%) (Auto) 6.5 Eosinophils (%) (Auto) 3.4 Basophils (%) (Auto) 0.5 Neutrophils # (Auto) 5.8 Lymphocytes # (Auto) 1.1 Monocytes # (Auto) 0.5 Eosinophils # (Auto) 0.3 Basophils # (Auto) 0.0 CBC Comment DIFF FINAL Differential Comment Urine Color LIGHT-YELLOW Urine Turbidity CLEAR Urine pH 6.0 Urine Specific [place] 1.013 Urine Protein TRACE Urine Glucose (UA) NEG Urine Ketones NEG Urine Occult Blood MOD Urine Nitrite NEG Urine Bilirubin NEG Urine Urobilinogen LESS THAN 2.0 Urine Leukocyte Esterase NEG Urine RBC 20 Urine WBC 2 Urine Squamous Epithelial Cells 2 Urine Bacteria RARE Urine Hyaline Casts 3 Urine Mucus FEW Microscopic Urinalysis Comment CULT NOT INDICATED Blood Urea Nitrogen 25 Creatinine 2.15 Random Glucose 92 Total Protein 6.4 Albumin 3.1 Calcium Level 8.0 Alkaline Phosphatase 48 Aspartate Amino Transf (AST/SGOT) 11 Alanine Aminotransferase (ALT/SGPT) 15 Total Bilirubin LESS THAN 0.1 Sodium Level 139 Potassium Level 3.6 Chloride Level 107 Carbon Dioxide Level 18.5 Anion Gap 14 Estimat Glomerular Filtration Rate 25 Total Creatine Kinase 52 Troponin I LESS THAN 0.02 Lipase 52 Result Diagram: 09/10/17204909/10/172049 Caprini VTE Risk Assessment Caprini VTE Risk Assessment: No/Low Risk (score <= 1) Caprini Risk Assessment Model Point Value = 1 Point Value = 2 Point Value = 3 Point Value = 5 Age 41-60 Minor surgery BMI > 25 kg/m2 Swollen legs Varicose veins or History of unexplained or recurrent spontaneous Oral contraceptives or hormone replacement Sepsis (< 1 month) Serious lung disease, including pneumonia (< 1 month) Abnormal pulmonary function Acute myocardial infarction Congestive heart failure (< 1 month) History of inflammatory bowel disease Medical patient at bed rest Age 61-74 Arthroscopic surgery Major open surgery (> 45 min) Laparoscopic surgery (> 45 min) Malignancy Confined to bed (> 72 hours) Immobilizing plaster cast Central venous access Age >= 75 History of VTE Family history of VTE Factor V Leiden Prothrombin [id number] Lupus anticoagulant Anticardiolipin antibodies Elevated serum homocysteine Heparin-induced thrombocytopenia Other congenital or acquired thrombophilia Stroke (< 1 month) Elective arthroplasty Hip, pelvis, or leg fracture Acute spinal cord injury (< 1 month) Prophylaxis Regimen Total Risk Factor Score Risk Level Prophylaxis Regimen 0-1 Low Early ambulation 2 Moderate Order ONE of the following: *Sequential Compression Device (SCD) *Heparin 5000 units SQ BID 3-4 Higher Order ONE of the following medications: *Heparin 5000 units SQ TID *Enoxaparin/Lovenox 40 mg SQ daily (WT < 150 kg, CrCl > 30 mL/min) *Enoxaparin/Lovenox 30 mg SQ daily (WT < 150 kg, CrCl > 10-29 mL/min) *Enoxaparin/Lovenox 30 mg SQ BID (WT < 150 kg, CrCl > 30 mL/min) AND/OR *Sequential Compression Device (SCD) 5 or more Highest Order ONE of the following medications: *Heparin 5000 units SQ TID (Preferred with Epidurals) *Enoxaparin/Lovenox 40 mg SQ daily (WT < 150 kg, CrCl > 30 mL/min) *Enoxaparin/Lovenox 30 mg SQ daily (WT < 150 kg, CrCl > 10-29 mL/min) *Enoxaparin/Lovenox 30 mg SQ BID (WT < 150 kg, CrCl > 30 mL/min) AND *Sequential Compression Device (SCD) Assessment and Plan Assessment and Plan 41-year-old female with chronic hypokalemia, chronic kidney disease, anemia and recent tooth extraction presents to the emergency department with lower extremity edema, abdominal pain and dizziness. 1. Anemia H&H 7.8/24.6 Repeat CBC pending Hemoccult pending Monitor and transfuse when necessary 2. Acute on chronic kidney injury BUN/creatinine 25/2.15 with a baseline creatinine of 1.2 Consult nephrology, appreciate assistance IV fluid hydration at 75 cc/hour 3. Chronic hypokalemia Potassium 3.6 on admission Continue supplementation Monitor 4. Recent tooth extraction Continue clindamycin 5. Bilateral lower extremity edema Unclear etiology Albumin 3.1 6. SLE versus other autoimmune disorder Patient currently on prednisone 40 mg daily, continue 7. Anxiety Continue home Valium FEN Heart healthy diet Normal saline at 75 cc/hour Monitor electrolytes Holding pharmacologic anticoagulation secondary to anemia Vibha Atwood MD Sep 11, 2017 04:59
[2017-09-11] MEDS ORDERED: aMILoride HCL 5 MG TAB PO SCH (05:00)
[2017-09-11] MEDS ORDERED: CLINDAMYCIN 150 MG CAP PO SCH (06:00)
[2017-09-11] MEDS: LEVOTHYROXINE SODIUM 25 MCG TAB PO SCH (06:31)
[2017-09-11] MEDS: CLINDAMYCIN 150 MG CAP PO SCH ×4 (06:31→23:44)
[2017-09-11] MEDS: DIAZEPAM 10 MG TAB PO PRN ×3 (06:32→21:37)
[2017-09-11] MEDS: SODIUM CHLOR 0.9% 1000 ML INJ 1,000 ML IV SCH (06:32)
[2017-09-11] MEDS: POTASSIUM CHLORIDE 20 MEQ CONTROLLED RELEASE TAB PO SCH ×3 (08:23→17:57)
[2017-09-11] MEDS: MAGNESIUM OXIDE 400 MG TAB PO SCH (08:23)
[2017-09-11] MEDS: FERROUS SULFATE 325 MG (65 MG ELEMENTAL IRON) TAB PO SCH ×2 (08:23→18:15)
[2017-09-11] MEDS: predniSONE 20 MG TAB PO SCH (08:23)
[2017-09-11] MEDS: SODIUM CHLORIDE 0.9% FLUSH 10 ML FLUSH IV FLUSH SCH ×2 (08:23→21:00)
[2017-09-11] MEDS: DOCUSATE SODIUM 50 MG/SENNA 8.6 MG TAB PO SCH ×2 (08:24→21:37)
[2017-09-11 08:53] VITALS: BP 118/76; PULSE 78; RESP 18; TEMP 96.2
[2017-09-11] MEDS: POTASSIUM PHOSPHATE MONOBASIC 500 MG TAB PO SCH ×2 (09:00→21:00)
[2017-09-11 09:21] LABS: AUTOMATED NEUTROPHIL # 5.6 TH/MM3 (1.8-7.7); BASOPHIL # 0.1 TH/MM3 (0-0.2); BASOPHIL % 0.9 % (0.0-2.0); EOSINOPHIL # 0.3 TH/MM3 (0-0.4); EOSINOPHIL % 3.1 % (0.0-4.0); HEMATOCRIT 24.6 % (35.0-46.0); HEMO FLAGS DIFF FINAL; LYMPH % 17.8 % (9.0-44.0); LYMPHOCYTE # 1.5 TH/MM3 (1.0-4.8); MEAN CELL VOLUME 85.7 FL (80.0-100.0); MEAN CORPUSCULAR HEMOGLOBIN 28.7 PG (27.0-34.0); MEAN CORPUSCULAR HGB CONC 33.5 % (32.0-36.0); NEUT % 68.2 % (16.0-70.0); PLATELET COUNT 176 TH/MM3 (150-450); RED BLOOD COUNT 2.87 MIL/MM3 (4.00-5.30); RED CELL DISTRIBUTION WIDTH 14.9 % (11.6-17.2); WHITE BLOOD COUNT 8.2 TH/MM3 (4.0-11.0)
[2017-09-11 09:46] LABS: BICARBONATE 23.2 MEQ/L (21.0-32.0)
[2017-09-11 12:24] VITALS: BP 99/64; PULSE 77; RESP 18; TEMP 97; O2SAT 97
[2017-09-11] MEDS: SPIRONOLACTONE 25 MG TAB PO SCH ×2 (13:34→18:16)
--- NOTE | 2017-09-11 13:59 | HHI.PR ---
Subjective Remarks Follow up for BLE edema, abdominal pain, dizziness. The patient reports continued weakness and diffuse pains today. She also complains of diffuse lower abdominal pain, denies any nausea/vomiting or diarrhea. She tolerated breakfast. She reports 24 dental extractions on 09/07. She denies any recent decreased oral intake. She reports continued BLE edema however improved compared to yesterday. Denies any specific calf pain. Denies any chest pain or shortness of breath. Her dizziness has improved. She has no other medical complaints at this time. Objective Vitals Vital Signs Date Time Temp Pulse Resp B/P (MAP) Pulse Ox O2 Delivery O2 Flow Rate FiO2 09/11/17 12:24 97.0 77 18 99/64 (76) 97 09/11/17 08:53 96.2 78 18 118/76 (90) 09/11/17 05:19 18 09/11/17 03:09 98.2 88 18 139/87 (104) 97 09/11/17 00:00 81 18 152/99 (116) 100 Room Air 09/10/17 22:00 84 17 115/74 (88) 97 Room Air 09/10/17 20:17 98.8 99 16 132/83 (99) 98 Room Air 09/10/17 19:59 99.4 98 16 143/89 (107) 96 Room Air I/O 09/10/17 09/10/17 09/10/17 09/11/17 09/11/17 09/11/17 07:00 15:00 23:00 07:00 15:00 23:00 Intake Total 250 ml Balance 250 ml Intake IV Total 250 ml Result Diagram: 09/11/1782309/11/17823 Objective Remarks GENERAL: Well-nourished, well-developed middle aged female patient in [facility]. SKIN: Warm and dry. No rash. HEENT: Normocephalic. Atraumatic. Pupils equal and round. Mucous membranes pink and moist. CARDIOVASCULAR: Regular rate and rhythm. S1, S2 noted. No murmur appreciated. RESPIRATORY: No accessory muscle use. Clear to auscultation. Breath sounds equal bilaterally. GASTROINTESTINAL: Abdomen soft, non-tender, nondistended. Normoactive bowel sounds x4. MUSCULOSKELETAL: No obvious deformities.Trace bilateral lower extremity edema. NEUROLOGICAL: Awake and alert. No obvious cranial nerve deficits. Motor grossly within normal limits. Normal speech. PSYCHIATRIC: Appropriate mood and affect; insight and judgment normal. Medications and IVs Current Medications Medications (Trade) Dose Ordered Sig/Osito Route Start Time Stop Time Status Last Admin (Ferrous Sulfate) 325 mg BIDPC PO 09/11/17 09:00 09/11/17 08:23 (Synthroid) 25 mcg DAILY@0600 PO 09/11/17 06:00 09/11/17 06:31 (Mag-Ox) 400 mg DAILY PO 09/11/17 09:00 09/11/17 08:23 (Protonix) 40 mg HS PO 09/11/17 21:00 (KCl) 40 meq TID PO 09/11/17 09:00 09/11/17 08:23 (K-Phos) 1,000 mg BID PO 09/11/17 09:00 (Deltasone) 40 mg DAILY PO 09/11/17 09:00 09/11/17 08:23 (Aldactone) 25 mg BID@,18 PO 09/11/17 09:00 (NS Flush) 2 ml UNSCH PRN IV FLUSH 09/11/17 01:45 (NS Flush) 2 ml BID IV FLUSH 09/11/17 09:00 09/11/17 08:23 (Tylenol) 650 mg Q4H PRN PO 09/11/17 01:45 (Zofran Inj) 4 mg Q6H PRN IVP 09/11/17 01:45 (Narcan Inj) 0.4 mg UNSCH PRN IV PUSH 09/11/17 01:45 (Irais-Colace) 1 tab BID PO 09/11/17 09:00 09/11/17 08:24 (Milk Of Magnesia Liq) 30 ml Q12H PRN PO 09/11/17 01:45 (Senokot) 17.2 mg Q12H PRN PO 09/11/17 01:45 (Dulcolax Supp) 10 mg DAILY PRN RECTAL 09/11/17 01:45 (Lactulose Liq) 30 ml DAILY PRN PO 09/11/17 01:45 (Faber 5-325 Mg) 1 tab Q4H PRN PO 09/11/17 04:00 09/11/17 08:24 (Cleocin) 300 mg Q6HR PO 09/11/17 06:00 09/21/17 00:01 09/11/17 06:31 (Valium) 10 mg TID PRN PO 09/11/17 05:00 09/11/17 06:32 Sodium Chloride 1,000 ml @ 75 mls/hr [id number] IV 09/11/17 05:30 09/11/17 06:32 (KCl) 60 meq ONCE ONCE PO 09/11/17 13:15 09/11/17 13:16 UNV A/P Assessment and Plan 41-year-old female with chronic hypokalemia, chronic kidney disease, anemia and recent tooth extraction presents to the emergency department with lower extremity edema, abdominal pain and dizziness. Normocyctic Anemia: Upon arrival, H&H 7.8/24.6, previously 12.4 on 08/14/17. Unclear etiology. Hemoccult negative on 05/23/17. Colonoscopy 08/01/17 mostly unremarkable, no bleeding. Possibly secondary to CKD. -Repeat CBC with improvement, Hgb 8.2 -Hemoccult pending, will plan to consult GI if positive -Check iron studies, ferritin, vitamin b12, folate -Continue to Monitor and transfuse if necessary SHABANA on CKD Stage III: BUN/creatinine 25/2.15 with a baseline creatinine of 1.05 on 08/12/17. Unclear etiology, suspect secondary to dehydration, patient recently with dental extractions 4 days ago, likely decreased oral intake. Renal U/S 08/09/17 unremarkable. -Consult nephrology, appreciate assistance -Continue IV fluid hydration at 75 cc/hour -Repeat BMP shows mild improvement, Cr 1.67, however not back to baseline Acute on Chronic hypokalemia: Potassium 3.6 on admission, decreased to 3.0 -Continue supplementation -check magnesium -Monitor Recent dental extractions: on 09/07 -Continue clindamycin Bilateral lower extremity edema: Unclear etiology. Possibly dependent edema, improving while in bed with legs elevated. -Records reviewed, Doppler U/S bilateral lower extremities 06/18/17 negative for DVT. -Albumin 3.1 -Will repeat Doppler U/S as patient is reporting worsening swelling and calf pains -apply mariano cardona SLE versus other autoimmune disorder -Patient currently on prednisone 40 mg daily, continue -encouraged to follow up with lawyers, patient reports her PCP is in the process of referring her Anxiety: chronic, likely contributing to symptoms -Continue home Valium Discharge Planning Discharge pending further clinical improvement of renal function, and nephrology evaluation. Hopefully discharge tomorrow. Brenda Marie PA-C Sep 11, 2017 1:59 pm
[2017-09-11] MEDS ORDERED: POTASSIUM CHLORIDE 20 MEQ CONTROLLED RELEASE TAB PO ONE (14:00)
--- NOTE | 2017-09-11 15:20 | RADRPT ---
EXAM DATE/TIME: 09/11/2017 14:35 [facility] COMPARISON: US LEG BILATERAL VENOUS DOPPLER, June 18, 2017, 10:51. INDICATIONS : Bilateral leg swelling. MEDICAL HISTORY : Gastroesophageal reflux disease. Thyroid disease. Seizures. Epilepsy. Atrial fibrillation. Hiral roparesis. Esophagitis. Ovarian cysts. Kidney disease. Lupus. Crohn's disease. carcinoma, appen amilcar. carcinoma, uterine. mrsa. clostridium difficile. SURGICAL HISTORY : Appendectomy.Hysterectomy. Endocrine surgery. Endometriosis surgery. ENCOUNTER: Subsequent ACUITY: 1 day PAIN SCORE: 0/10 LOCATION: Bilateral legs. TECHNIQUE: Venous ultrasound of the left and right leg was performed from the inguinal ligament to the proximal calf. Real-time, color Doppler and spectral tracing, compression and augmentation techniques were us ed. FINDINGS: RIGHT LEG: There is normal compressibility of the deep venous system from the inguinal region to the proximal ca lf. No echogenic clot is seen in the lumen of the common femoral, femoral, popliteal, and posterior tibial veins. There is a normal response of the venous system to proximal and distal augmentation an d respiration. LEFT LEG: There is normal compressibility of the deep venous system from the inguinal region to the proximal ca lf. No echogenic clot is seen in the lumen of the common femoral, femoral, popliteal, and posterior tibial veins. There is a normal response of the venous system to proximal and distal augmentation an d respiration. CONCLUSION: Negative for deep venous thrombosis. Nathaniel Porter MD FACR on September 11, 2017 at 15:17 Board Certified Radiologist. This report was verified electronically.
[2017-09-11 16:07] LABS: TRANSFERRIN IRON PROFILE 334 MG/DL (200-360)
[2017-09-11 16:32] LABS: FERRITIN 10 NG/ML (8-252)
[2017-09-11 17:28] VITALS: BP 107/67; PULSE 76; RESP 21; TEMP 98.3; O2SAT 95
[2017-09-11] MEDS: POTASSIUM CHLOR 20 MEQ PREMIX 100 ML IV SCH ×2 (18:16→23:21)
--- NOTE | 2017-09-11 20:43 | MB ---
cc: NARINDER FERRARI MD DATE OF CONSULTATION: 09/11/2017. REASON FOR CONSULTATION: Acute kidney injury and history of hypokalemia. HISTORY OF PRESENT ILLNESS: This is a 41-year-old female with past medical history of chronic hypokalemia, history of chronic kidney disease with recurrent acute kidney injury, history of Crohn's disease, and seizure disorder who came to the hospital with complaints of generalized weakness and increased swelling of the legs. I was called to see the patient because of elevated creatinine and hypokalemia. The patient was seen by me when she was here last month. At that time, she had a creatinine of 2.1 on admission and it improved to 1.1 to 1.0 when she was discharged. She had one visit to the emergency room on August 14 and at that time, the creatinine was 1.9. Now she came with a creatinine of 2.1. The patient has chronic hypokalemia with a very low potassium level and she was put on Aldactone by me during the last admission according to the patient she was also started on Amiloride. She had serology done for lupus including ELLE which was negative and anti-DNA was less than 12.2 during the last admission. PAST MEDICAL HISTORY: 1. Crohn's disease. 2. Gastroparesis. 3. History of systemic lupus erythematosus. 4. Esophagitis. 5. Colitis. 6. Chronic hypokalemia. 7. Chronic kidney disease with recurrent acute kidney injury. 8. Hypothyroidism. 9. Chronic anemia. PAST SURGICAL HISTORY: 1. Multiple laparotomies for endometriosis. 2. Appendectomy. 3. Port Placement. 4. J-tube placement. 5. Tooth extraction. REVIEW OF SYSTEMS: The patient has generalized weakness and is feeling tired. He has been eating well. There is no nausea or vomiting. No history of diarrhea. Denies any abdominal pain. No shortness of breath. Increased swelling of the legs and has some weakness in the legs. No dysuria or hematuria. She did not notice any decrease in urine output. According to the patient, she has been drinking a lot of fluids and eating well. SOCIAL HISTORY: There is no history of smoking or alcoholism. FAMILY HISTORY: Family history is noncontributory. ALLERGIES: She is allergic to: 1. GABAPENTIN. 2. PROMETHAZINE. 3. CHLORPROETHAZINE. 4. PENICILLIN. 5. CEPHALEXIN. 6. KETOROLAC. MEDICATIONS: Currently she is on the following medications: 1. IV fluids. She is on normal saline at 75 an hour. 2. Potassium phosphate at 1000 milligrams twice a day. 3. Aldactone 25 milligrams twice a day. 4. Ferrous sulfate 325 milligrams twice a day. 5. Magnesium oxide 400 milligrams daily. 6. Prednisone 40 milligrams once a day. 7. Synthroid 25 micrograms daily. 8. Protonix 40 milligrams at bedtime. 9. Potassium 40 milliequivalents three times a day. 10. Cleocin 300 milligrams q. 6 hours. 11. Darvocet as needed. 12. Zofran as needed. PHYSICAL EXAMINATION: GENERAL: On examination, the patient is awake and alert and she is not in acute distress. VITAL SIGNS: Her last blood pressure was 107/67, temperature is 98.3, oxygen saturation is 95% to 97%. HEAD, EYES, EARS, NOSE, THROAT: The pupils are mid constricted. Nonicteric sclerae. Conjunctivae are pale. NECK: The neck is supple. JVD is not elevated. LUNGS: The patient has bilateral good air entry. No wheezing. HEART: S1 and S2 regular rhythm. ABDOMEN: Abdomen soft and lax. There is no tenderness. Bowel sounds positive. EXTREMITIES: There is mild pedal edema. INVESTIGATIONS: White blood cell count is 8.2, hemoglobin 8.2, platelet count of 176,000. Iron saturation is 7.1. Ferritin is 10. Total bilirubin is 0.1, AST is 11, ALT is 15. Troponin I is 0.02. Albumin is 3.1. Lipase is 52. Urinalysis showing that there is trace protein. Previously she had urine random that was 42 and this was done last month. Urine random potassium was 42, which was done last month. IMAGING STUDIES: The patient had ultrasound of the lower extremities done which showed that there is no deep vein thrombosis. ASSESSMENT: 1. Chronic kidney disease acute kidney injury. 2. Hypokalemia with hypophosphatemia and hypomagnesemia. 3. Anemia. 4. History of SLE 5. Crohn's disease. The patient has again acute kidney injury which is improving with hydration. Most likely she has some element of prerenal. She has tubular dysfunction with hypokalemia and low phosphorus and needs replacement. She has been on spironolactone. Her aldosterone level before was low and she needs continuous replacement of electrolytes. Her lupus was not active during the last admission and this time again she does not have significant proteinuria so likely related to lupus and the way the creatinine is improving. Avoid any nephrotoxins and follow the electrolytes. Thank you for the consultation. I will follow the patient while she is in the hospital. MD AVIS Dexter/YESENIA /8:04 PM /8:32 PM
[2017-09-11] MEDS ORDERED: PANTOPRAZOLE SOD 40 MG DELAYED RELEASE TAB PO SCH (21:00)
[2017-09-11 21:42] VITALS: BP 109/64; PULSE 79; RESP 18; TEMP 98.9; O2SAT 98
[2017-09-12] MEDS: ACETAMINOPHEN/HYDROcodone 325 MG/5 MG TAB PO PRN ×4 (03:31→18:49)
[2017-09-12] MEDS: SODIUM CHLOR 0.9% 1000 ML INJ 1,000 ML IV SCH ×2 (03:34→15:30)
[2017-09-12 04:04] VITALS: BP 115/72; PULSE 72; RESP 18; TEMP 98.8; O2SAT 96
[2017-09-12] MEDS: CLINDAMYCIN 150 MG CAP PO SCH ×3 (05:16→18:43)
[2017-09-12] MEDS: LEVOTHYROXINE SODIUM 25 MCG TAB PO SCH (05:16)
[2017-09-12] MEDS: DIAZEPAM 10 MG TAB PO PRN ×2 (06:54→14:11)
[2017-09-12 07:44] VITALS: BP 122/74; PULSE 79; RESP 20; TEMP 98.7; O2SAT 96
[2017-09-12 08:01] LABS: AUTOMATED NEUTROPHIL # 3.6 TH/MM3 (1.8-7.7); BASOPHIL # 0.1 TH/MM3 (0-0.2); BASOPHIL % 1.1 % (0.0-2.0); EOSINOPHIL # 0.2 TH/MM3 (0-0.4); EOSINOPHIL % 4.1 % (0.0-4.0); HEMO FLAGS DIFF FINAL; LYMPHOCYTE # 1.3 TH/MM3 (1.0-4.8); MEAN CELL VOLUME 85.6 FL (80.0-100.0); MEAN CORPUSCULAR HEMOGLOBIN 28.5 PG (27.0-34.0); MEAN CORPUSCULAR HGB CONC 33.3 % (32.0-36.0); MONO % 9.2 % (0.0-8.0); NEUT % 63.6 % (16.0-70.0); PLATELET COUNT 164 TH/MM3 (150-450); RED CELL DISTRIBUTION WIDTH 14.9 % (11.6-17.2); WHITE BLOOD COUNT 5.7 TH/MM3 (4.0-11.0)
[2017-09-12 08:23] LABS: BICARBONATE 23.3 MEQ/L (21.0-32.0); MAGNESIUM 1.6 MG/DL (1.5-2.5)
[2017-09-12] MEDS: POTASSIUM PHOSPHATE MONOBASIC 500 MG TAB PO SCH (09:06)
[2017-09-12] MEDS: FERROUS SULFATE 325 MG (65 MG ELEMENTAL IRON) TAB PO SCH ×2 (09:07→18:44)
[2017-09-12] MEDS: predniSONE 20 MG TAB PO SCH (09:07)
[2017-09-12] MEDS: DOCUSATE SODIUM 50 MG/SENNA 8.6 MG TAB PO SCH (09:07)
[2017-09-12] MEDS: MAGNESIUM OXIDE 400 MG TAB PO SCH (09:08)
[2017-09-12] MEDS: POTASSIUM CHLORIDE 20 MEQ CONTROLLED RELEASE TAB PO SCH ×3 (09:08→18:44)
[2017-09-12] MEDS: SPIRONOLACTONE 25 MG TAB PO SCH ×2 (09:08→18:43)
--- NOTE | 2017-09-12 10:43 | HHI.PR ---
Subjective Remarks Follow up for SHABANA, electrolyte imbalance. Patient is doing well. Had some nausea. Objective Vitals Vital Signs Date Time Temp Pulse Resp B/P (MAP) Pulse Ox O2 Delivery O2 Flow Rate FiO2 09/12/17 07:44 98.7 79 20 122/74 (90) 96 09/12/17 04:04 98.8 72 18 115/72 (86) 96 09/11/17 21:42 98.9 79 18 109/64 (79) 98 09/11/17 17:28 98.3 76 21 107/67 (80) 95 09/11/17 12:24 97.0 77 18 99/64 (76) 97 I/O 09/11/17 09/11/17 09/11/17 09/12/17 09/12/17 09/12/17 07:00 15:00 23:00 07:00 15:00 23:00 Intake Total 250 ml Balance 250 ml Intake IV Total 250 ml Result Diagram: 09/12/17 0657 09/12/17 0657 Imaging Last Impressions Lower Extremity Ultrasound 09/11/17 0000 Signed Impressions: Service Date/Time: Monday, September 11, 2017 14:35 - CONCLUSION: Negative for deep venous thrombosis. Nathaniel Porter MD FACR Objective Remarks GENERAL: Alert, oriented 3, NAD. SKIN: Warm and dry. HEAD: Normocephalic. EYES: No scleral icterus. No injection or drainage. NECK: Supple, trachea midline. No JVD or lymphadenopathy. CARDIOVASCULAR: Regular rate and rhythm without murmurs, gallops, or rubs. RESPIRATORY: Breath sounds equal bilaterally. No accessory muscle use. GASTROINTESTINAL: Abdomen soft, non-tender, nondistended. MUSCULOSKELETAL: No cyanosis, or edema. BACK: Nontender without obvious deformity. No CVA tenderness. Procedures None A/P Problem List: (1) SHABANA (acute kidney injury) ICD Code: N17.9 - Acute kidney injury Status: Resolved (2) Hypomagnesemia ICD Code: E83.42 - Hypomagnesemia Status: Acute (3) Hypokalemia ICD Code: E87.6 - Hypokalemia Status: Chronic Assessment and Plan 41-year-old female with chronic hypokalemia, chronic kidney disease, anemia and recent tooth extraction presents to the emergency department with lower extremity edema, abdominal pain and dizziness. Normocyctic Anemia: Upon arrival, H&H 7.8/24.6, previously 12.4 on 08/14/17. Unclear etiology. Hemoccult negative on 05/23/17. Colonoscopy 08/01/17 mostly unremarkable, no bleeding. Possibly secondary to CKD. -Repeat CBC with improvement, Hgb 8.0 -Hemoccult negative. -Iron saturation low. Encouraged patient to take Iron tablets with Vitamin C or [place] Juice. SHABANA on CKD Stage III: BUN/creatinine 25/2.15 with a baseline creatinine of 1.05 on 08/12/17. Unclear etiology, suspect secondary to dehydration, patient recently with dental extractions 4 days ago, likely decreased oral intake. Renal U/S 08/09/17 unremarkable. -Consult nephrology, appreciate assistance -Continue IV fluid hydration at 75 cc/hour -Creatinine is improved to 1.06 Acute on Chronic hypokalemia: Potassium 3.6 on admission, decreased to 3.0 -Continue supplementation -check magnesium - Will give IV KCL and IV Mg sulfate. Will recheck K, Mg level at 4PM. - If improved, we will discharge patient home with outpatient follow up with PCP, Nephrology. Recent dental extractions: on 09/07 -Continue clindamycin Bilateral lower extremity edema: Unclear etiology. Possibly dependent edema, improving while in bed with legs elevated. -Records reviewed, Doppler U/S bilateral lower extremities 06/18/17 negative for DVT. -Albumin 3.1 Doppler U/S --> No DVT. -apply mariano cardona SLE versus other autoimmune disorder -Patient currently on prednisone 40 mg daily, continue -encouraged to follow up with supervisor trust accounts, patient reports her PCP is in the process of referring her Anxiety: chronic, likely contributing to symptoms -Continue home Valium Full code. Ambulation. Aristeo Mckeon DO Sep 12, 2017 10:43 am
[2017-09-12] MEDS: POTASSIUM CHLOR 20 MEQ PREMIX 100 ML IV SCH ×2 (10:58→13:03)
[2017-09-12] MEDS: SODIUM CHLORIDE 0.9% FLUSH 10 ML FLUSH IV FLUSH SCH (10:58)
[2017-09-12 11:19] VITALS: BP 101/58; PULSE 87; RESP 20; TEMP 98.4; O2SAT 98
[2017-09-12] MEDS: MAGNESIUM SULFATE 1 GM PREMIX 100 ML IV SCH ×2 (15:29→16:38)
[2017-09-12] MEDS ORDERED: POTASSIUM CHLOR 20 MEQ PREMIX 100 ML IV SCH (16:00)
[2017-09-12 16:19] VITALS: BP 94/50; PULSE 78; RESP 20; TEMP 99.1; O2SAT 97
[2017-09-12 18:27] LABS: MAGNESIUM 2.8 MG/DL (1.5-2.5); POTASSIUM 3.7 MEQ/L (3.5-5.1)
[2017-09-12] MEDS ORDERED: PERC5TAB12 PO (18:59)
[2017-09-12] MEDS ORDERED: DIAZ10 PO (18:59)
--- NOTE | 2017-09-12 20:54 | HHI.NPPN ---
Subjective History of Present Illness 41-year-old female with past medical history of chronic hypokalemia, history of chronic kidney disease with recurrent acute kidney injury, history of Crohn's disease, and seizure disorder who came to the hospital with complaints of generalized weakness and increased swelling of the legs. I was called to see the patient because of elevated creatinine and hypokalemia. Additional Remarks Patient see earlier,feeling better, no diarrhea. Review of Systems General Constitutional: Fatigue Cardiovascular Cardiac: MOSES Objective Data Data Vital Signs Date Time Temp Pulse Resp B/P (MAP) Pulse Ox O2 Delivery O2 Flow Rate FiO2 09/12/17 16:19 99.1 78 20 94/50 (65) 97 09/12/17 11:19 98.4 87 20 101/58 (72) 98 09/12/17 07:44 98.7 79 20 122/74 (90) 96 09/12/17 04:04 98.8 72 18 115/72 (86) 96 09/11/17 21:42 98.9 79 18 109/64 (79) 98 -: 09/12/17 0657 09/12/17 1745 Microbiology 09/12/17 Stool Occult Blood (MARCUS) - Final, Complete HEMOCCULT NEGATIVE Physical Exam General Appearance: No Acute Distress, Comfortable Eyes Eye Exam: Pupils Equal Throat Throat Exam: Oral Mucosa [place] & Moist Neck Neck Exam: Neck Supple Pulmonary Resp Exam: Breath Sounds Equal, No Distress, Decreased Bases Cardiology CV Exam: Regular, Normal Sinus Rhythm Gastrointestinal/Abdomen GI Exam: Soft, Non-Tender, Bowel Sounds Present Extremeties Extremities Exam: No Edema Neurologic Neuro Exam: Alert, Awake, Oriented Psychiatric Psych Exam: Appropriate Responses Assessment/Plan Assessment Summary: SHABANA/Acute Renal Failure Electrolyte Assessment: Hypocalcemia, Hypokalemia, Hypomagnesemia Problem List: (1) Lupus (systemic lupus erythematosus) ICD Codes: M32.9 - Systemic lupus erythematosus, unspecified (2) Dehydration ICD Codes: E86.0 - Dehydration Status: Resolved (3) Anxiety ICD Codes: F41.9 - Anxiety disorder, unspecified (4) Acute renal failure ICD Codes: N17.9 - Acute kidney failure, unspecified Status: Acute (5) Hypokalemia ICD Codes: E87.6 - Hypokalemia Status: Chronic (6) Hypomagnesemia ICD Codes: E83.42 - Hypomagnesemia Status: Acute Plan Patient has improvement in the Creatinine. K is better and Mg is also better after replacement. Most likely has pre renal SHABANA. Told to drink more fluid as she has been on diuretics. Now for D/C, need follow up, told to call my office in 2-3 weeks. Torie Arrieta MD Sep 12, 2017 20:54
== END 2017-09-12 20:45 | disposition home or self-care (01) ==
LOC: NEPC 19:58 → NEDA 09-11 01:22 → OBSVTOIN 09-11 01:38 → INTOOBSV 09-11 01:38 → NEPHCDU 09-11 02:57
PROVIDERS: ADMIT Internal Medicine; ATTEND Internal Medicine
DX: N17.9 Acute kidney failure, unspecified (principal); N18.3 Chronic kidney disease, stage 3 (moderate); E87.6 Hypokalemia; D64.9 Anemia, unspecified; E86.0 Dehydration; K21.9 Gastro-esophageal reflux disease without esophagitis; M32.9 Systemic lupus erythematosus, unspecified; K31.84 Gastroparesis; I48.91 Unspecified atrial fibrillation; F41.9 Anxiety disorder, unspecified; K20.9 Esophagitis, unspecified; G40.909 Epilepsy, unspecified, not intractable, without status epilepticus; K50.90 Crohn's disease, unspecified, without complications; R79.89 Other specified abnormal findings of blood chemistry; K52.9 Noninfective gastroenteritis and colitis, unspecified; E03.9 Hypothyroidism, unspecified; E83.51 Hypocalcemia; E83.42 Hypomagnesemia
CPT/HCPCS: 80048; 80053; 81001; 82272; 82550; 82607; 82728; 82746; 83540; 83550; 83690; 83735; 84132; 84484; 85025; 93970; 96361; 96365; 96366; 96375; 99285; G0378; J1642; J2270; J3475; J3480; J7030; J7050; J7512

== ENCOUNTER 2017-10-01 00:02 | Observation (INO) | payer OTHER ==
[2017-10-01] VITALS (11 sets, daily range): BP systolic 104–149; BP diastolic 58–84; PULSE 62–84; RESP 16–18; TEMP 98–99.4; O2SAT 96–100
[~2017-10-01] VITALS: Ht 175.3 cm; Wt 66.1 kg
[~2017-10-01 00:02] MED LIST changes: +AMIL5 PO; -CLIN150 PO; +DIAZ10 PO; -HYDR-3533 PO; -LORA-392 PO; -OXYC-392 PO; +PERC5TAB12 PO
[2017-10-01] MEDS ORDERED: SODIUM CHLORIDE 0.9% FLUSH 10 ML FLUSH IVF PRN (00:15)
[2017-10-01] MEDS ORDERED: SPIR25TA PO (00:51)
[2017-10-01] MEDS ORDERED: MS C15TA7 PO (00:51)
[2017-10-01] MEDS ORDERED: LEVO125T4 PO (00:51)
[2017-10-01 01:20] LABS: AUTOMATED NEUTROPHIL # 5.8 TH/MM3 (1.8-7.7); BASOPHIL # 0.1 TH/MM3 (0-0.2); BASOPHIL % 0.9 % (0.0-2.0); EOSINOPHIL # 0.2 TH/MM3 (0-0.4); EOSINOPHIL % 3.1 % (0.0-4.0); HEMATOCRIT 28.8 % (35.0-46.0); HEMO FLAGS DIFF FINAL; LYMPH % 13.3 % (9.0-44.0); MEAN CELL VOLUME 84.7 FL (80.0-100.0); MEAN CORPUSCULAR HEMOGLOBIN 27.9 PG (27.0-34.0); MEAN CORPUSCULAR HGB CONC 32.9 % (32.0-36.0); MONO % 8.9 % (0.0-8.0); NEUT % 73.8 % (16.0-70.0); PLATELET COUNT 203 TH/MM3 (150-450); RED CELL DISTRIBUTION WIDTH 14.9 % (11.6-17.2); WHITE BLOOD COUNT 7.8 TH/MM3 (4.0-11.0)
[2017-10-01 01:58] LABS: FREE T3 3.24 PG/ML (2.18-3.98); FREE T4 1.13 NG/DL (0.76-1.46)
[2017-10-01 02:00] LABS: ANION GAP 10 MEQ/L (5-15); BICARBONATE 25.9 MEQ/L (21.0-32.0); BLOOD UREA NITROGEN 34 MG/DL (7-18); CHLORIDE 100 MEQ/L (98-107); GLOMERULAR FILTRATION RATE 35 ML/MIN (>89); MAGNESIUM 1.9 MG/DL (1.5-2.5); SODIUM (NA) 136 MEQ/L (136-145)
[2017-10-01] MEDS ORDERED: SODIUM CHLOR 0.9% 1000 ML INJ 1,000 ML IV ONE (02:15)
--- NOTE | 2017-10-01 03:18 | PD ---
HPI Chief Complaint: Chest Pain Time Seen by Provider: 00:11 Travel History International Travel<30 days: No Contact w/Intl Traveler<30days: No Traveled to known affect area: No History of Present Illness HPI Patient is a 41-year-old female presents emergency Department with vague chest discomfort as well as anxiety. Patient states she has a history of electrolyte abnormalities and lupus is being worked up for recurrent electrolyte abnormalities been told by her primary care physician and a tertiary care facility. She states she's had some vague chest discomfort for the past few hours describes it as uncomfortable in the middle of her chest and some numbness tingling down her left arm. No syncope, no palpitations. States happens to her fairly infrequently usually she needs potassium PFSH Past Medical History Arthritis: No Asthma: No Atrial Fibrillation: No Autoimmune Disease: Yes (LUPUS ) Blood Disorders: No Bipolar Disorder: Yes Anxiety: Yes Depression: No Heart Rhythm Problems: Yes (HYPOKALEMIA RELATED AFIB) Cancer: Yes (APPENDIX 2002) Cardiovascular Problems: No High Cholesterol: No Chemotherapy: No Chest Pain: No Congestive Heart Failure: No COPD: No Cerebrovascular Accident: No Diabetes: No Diminished Hearing: No Endocrine: No Gastrointestinal Disorders: Yes (GASTROPARESIS, esophagitis) GERD: Yes Genitourinary: Yes (RECURRENT UTI'S, NEPHRITIS, kidney disease) Headaches: Yes Hiatal Hernia: No Heparin Induced Thrombocytopen: No Hypertension: No Immune Disorder: Yes (CROHN'S) Implanted Vascular Access Dvce: Yes (RIGHT SUBCLAVIAN PORT VAD) Kidney Stones: Yes Musculoskeletal: No Neurologic: Yes (EPILEPSY) Psychiatric: No Reproductive: No Respiratory: No Immunizations Current: Yes Migraines: Yes Myocardial Infarction: No Pneumonia: Yes Radiation Therapy: No Renal Failure: No Seizures: Yes (juvenile epilepsy) Sickle Cell Disease: No Sleep Apnea: No Thyroid Disease: Yes Ulcer: Yes (Pt states she has severe ulcers from throat to rectum) PNEUMOCCOCAL Vaccine (Year): 3 ?: Not : 2 Para: 1 Miscarriage: 1 : 0 Ectopic : Yes (AT 17 YEARS OF AGE) Ovarian Cysts: Yes Past Surgical History Abdominal Surgery: Yes (multiple Laps) AICD: No Appendectomy: Yes Arteriovenous Shunt: No Body Medical Devices: RIGHT SUBCLAVIAN PORT VAD Cardiac Surgery: No Ear Surgery: No Endocrine Surgery: Yes Eye Surgery: No Genitourinary Surgery: Yes (Interstitial cystitis) Gynecologic Surgery: Yes Hysterectomy: Yes (PARTIAL) Insulin Pump: No Joint Replacement: No Neurologic Surgery: No Oral Surgery: Yes (Removal of abscess) Pacemaker: No Thoracic Surgery: No Other Surgery: Yes (OVARIAN CYST) Social History Alcohol Use: No (PT DENIES ) Tobacco Use: No Substance Use: No Allergies-Medications (Allergen,Severity, Reaction): Coded Allergies: Fish Containing Products (Unverified Allergy, Severe, SWELLING IN THROAT, SOB, 10/01/17) cephalexin (Unverified Allergy, Severe, RASH,SWELLING, 10/01/17) ketorolac (Unverified Allergy, Severe, RASH, 10/01/17) penicillin G (Unverified Allergy, Severe, RASH,SWELLING, 10/01/17) prochlorperazine (Unverified Allergy, Mild, DYSTONIC REACTION, 10/01/17) promethazine (Unverified Allergy, Mild, DYSTONIC REACTION, 10/01/17) gabapentin (Unverified Adverse Reaction, Severe, SEIZURES, 10/01/17) Reported Meds & Prescriptions Reported Meds & Active Scripts Active Valium (Diazepam) 10 Mg Tab 10 Mg PO TID PRN Clindamycin (Clindamycin HCl) 150 Mg Cap 300 Mg PO Q6H 10 Days Carafate (Sucralfate) 1 Gram Tab 1 Gm PO TID On empty stomach Prednisone 20 Mg Tab 40 Mg PO DAILY Take 40mg (2 tabs) daily x7 days, then 20mg (1 tab) daily x7 days, then 10mg (1/2 tab) daily x7days, then stop. Potassium Chloride ER (Potassium Chloride) 20 Meq Tab 40 Meq PO TID Ferrous Sulfate 325 Mg (65 Mg Iron) Tablet 325 Mg PO BIDPC Pantoprazole (Pantoprazole Sodium) 40 Mg Tab 40 Mg PO HS Vitamin D3 (Cholecalciferol) 10,000 Unit Cap 20,000 Units PO Q3D @ HS Reported Spironolactone 25 Mg Tab 25 Mg PO DAILY Ms Contin (Morphine Sulfate) 15 Mg Tab 30 Mg PO Q8H Levothyroxine (Levothyroxine Sodium) 125 Mcg Tab 125 Mcg PO DAILY Magnesium Oxide 400 Mg Tab 400 Mg PO DAILY Review of Systems Except as stated in HPI: all other systems reviewed are Neg Physical Exam Narrative GENERAL: Well-developed thin and appears fairly anxious. SKIN: Focused skin assessment warm/dry. HEAD: Atraumatic. Normocephalic. EYES: Pupils equal and round. No scleral icterus. No injection or drainage. ENT: No nasal bleeding or discharge. Mucous membranes pink and moist. NECK: Trachea midline. No JVD. CARDIOVASCULAR: Regular rate and rhythm. No murmur appreciated. RESPIRATORY: No accessory muscle use. Clear to auscultation. Breath sounds equal bilaterally. GASTROINTESTINAL: Abdomen soft, non-tender, nondistended. Hepatic and splenic margins not palpable. MUSCULOSKELETAL: No obvious deformities. No clubbing. No cyanosis. No edema. NEUROLOGICAL: Awake and alert. No obvious cranial nerve deficits. Motor grossly within normal limits. Normal speech. PSYCHIATRIC: Appropriate mood and affect; insight and judgment normal. Data Data Last Documented VS Vital Signs Date Time Temp Pulse Resp B/P (MAP) Pulse Ox O2 Delivery O2 Flow Rate FiO2 10/01/17 00:30 98.5 83 17 140/78 (98) 97 Orders Orders Electrocardiogram (10/01/17 00:11) Basic Metabolic Panel (Bmp) (10/01/17 00:11) Complete Blood Count With Diff (10/01/17 00:11) Magnesium (Mg) (10/01/17 00:11) Troponin I (10/01/17 00:11) Ecg Monitoring (10/01/17 00:11) Iv Access Insert/Monitor (10/01/17 00:11) Oximetry (10/01/17 00:11) Oxygen Administration (10/01/17 00:11) Sodium Chloride 0.9% Flush (Ns Flush) (10/01/17 00:15) Thyroid Stimulating Hormone (10/01/17 00:11) Free T3 (10/01/17 00:11) Free Thyroxine (T4) (10/01/17 00:11) Sodium Chlor 0.9% 1000 Ml Inj (Ns 1000 M (10/01/17 02:15) Troponin I (10/01/17 03:17) Lorazepam (Ativan) (10/01/17 04:15) Admit Order (Ed Use Only) (10/01/17 ) Labs Laboratory Tests Test 10/01/17 01:00 White Blood Count 7.8 TH/MM3 Red Blood Count 3.40 MIL/MM3 Hemoglobin 9.5 GM/DL Hematocrit 28.8 % Mean Corpuscular Volume 84.7 FL Mean Corpuscular Hemoglobin 27.9 PG Mean Corpuscular Hemoglobin Concent 32.9 % Red Cell Distribution Width 14.9 % Platelet Count 203 TH/MM3 Mean Platelet Volume 7.6 FL Neutrophils (%) (Auto) 73.8 % Lymphocytes (%) (Auto) 13.3 % Monocytes (%) (Auto) 8.9 % Eosinophils (%) (Auto) 3.1 % Basophils (%) (Auto) 0.9 % Neutrophils # (Auto) 5.8 TH/MM3 Lymphocytes # (Auto) 1.0 TH/MM3 Monocytes # (Auto) 0.7 TH/MM3 Eosinophils # (Auto) 0.2 TH/MM3 Basophils # (Auto) 0.1 TH/MM3 CBC Comment DIFF FINAL Differential Comment Blood Urea Nitrogen 34 MG/DL Creatinine 1.63 MG/DL Random Glucose 88 MG/DL Calcium Level 8.8 MG/DL Magnesium Level 1.9 MG/DL Sodium Level 136 MEQ/L Potassium Level 4.0 MEQ/L Chloride Level 100 MEQ/L Carbon Dioxide Level 25.9 MEQ/L Anion Gap 10 MEQ/L Estimat Glomerular Filtration Rate 35 ML/MIN Troponin I LESS THAN 0.02 NG/ML Free Thyroxine 1.13 NG/DL Free Triiodothyronine (T3) pg/dL 3.24 PG/ML Thyroid Stimulating Hormone 3rd Gen 0.305 uIU/ML MDM Medical Decision Making Medical Screen Exam Complete: Yes Emergency Medical Condition: Yes Differential Diagnosis anemia, electrolyte abnormality, ACS seems unlikely, palpitations. Narrative Course Patient roomed emergency department, EKG shows changes consistent with Brugada pattern. Particularly in leads V1 and V2 and V3. Patient troponin negative, electrolytes are reassuring. Given her chest discomfort the patient was discussed with Dr. English. He does have an acute kidney injury which would meet admission criteria and given this the patient will be seen by him in consultation. Repeat troponin is been ordered at this time. The patient was discussed with Dr. Arriaga for observation status and she is agreeable. Diagnosis Primary Impression: SHABANA (acute kidney injury) Additional Impression: Brugada syndrome Admitting Information Admitting Physician Requests: Observation Condition: Stable Javid Godinez MD Oct 01, 2017 03:18
[2017-10-01] MEDS ORDERED: ACETAMINOPHEN 325 MG TAB PO PRN (04:15)
[2017-10-01] MEDS ORDERED: MAGNESIUM HYDROXIDE SUSP 30 ML CUP PO PRN (04:15)
[2017-10-01] MEDS ORDERED: BISACODYL 10 MG SUPP RECTAL PRN (04:15)
[2017-10-01] MEDS ORDERED: SENNOSIDES 8.6 MG TAB PO PRN (04:15)
[2017-10-01] MEDS ORDERED: ONDANSETRON HCL 4 MG/2 ML VIAL IVP PRN (04:15)
[2017-10-01] MEDS ORDERED: LORazepam 1 MG TAB PO ONE (04:15)
[2017-10-01] MEDS ORDERED: SODIUM CHLORIDE 0.9% FLUSH 10 ML FLUSH IV FLUSH PRN (04:15)
[2017-10-01] MEDS ORDERED: LACTULOSE SYRUP 20 GM/30 ML CUP PO PRN (04:15)
--- NOTE | 2017-10-01 04:39 | HHI.HP ---
[facility] Neeraj Gilbert D.O. Admission Diagnosis Possible Brugada, SHABANA. Diagnoses: (1) Chest pain Diagnosis: Principal (2) Brugada syndrome Diagnosis: Principal (3) SHABANA (acute kidney injury) Diagnosis: Principal (4) Lupus Diagnosis: Principal Travel History International Travel<30 Days: No Contact w/Intl Traveler <30 Da: No Traveled to Known Affected Are: No History of Present Illness This is a 41-year-old female with a PMH of Lupus, Anxiety, Depression, Bipolar Disorder, Chronic Hypokalemia, Adrenal Insufficiency, Recurrent SHABANA, Crohn's Disease, Chronic Pain, Seizure Disorder and Gastroparesis who presented to the ER w/ complaints of chest pain, felt as though "heart was flipping". Symptoms started acutely tonight, states felt like K+ was low again. On arrival, BP 140/ 78, HR 83, O2 sat 97% on RA, Afebrile. CBC essentially unremarkable except for mildly elevated neutrophil count. K+ 4.0. Creatinine 1.63, previously 1.06 on 09/12/17. Trop negative. EKG w/ evidence of Brugada. Dr. English consulted by ER physician, plan is to admit for further work up. Review of Systems Except as stated in HPI: all other systems reviewed are Neg ROS: 14 point review of systems otherwise negative. Past Family Social History Past Medical History PMH: Lupus, Anxiety, Depression, Bipolar Disorder, Chronic Hypokalemia, Adrenal Insufficiency, Recurrent SHABANA, Crohn's Disease, Chronic Pain, Seizure Disorder and Gastroparesis Past Surgical History PAST SURGICAL HISTORY: Appendectomy, Right Subclavian Port, Partial Hysterectomy, Dental Extraction Allergies: Coded Allergies: Fish Containing Products (Unverified Allergy, Severe, SWELLING IN THROAT, SOB, 10/01/17) cephalexin (Unverified Allergy, Severe, RASH,SWELLING, 10/01/17) ketorolac (Unverified Allergy, Severe, RASH, 10/01/17) penicillin G (Unverified Allergy, Severe, RASH,SWELLING, 10/01/17) prochlorperazine (Unverified Allergy, Mild, DYSTONIC REACTION, 10/01/17) promethazine (Unverified Allergy, Mild, DYSTONIC REACTION, 10/01/17) gabapentin (Unverified Adverse Reaction, Severe, SEIZURES, 10/01/17) Family History PAST FAMILY HISTORY: Reviewed. No h/o DM or CAD Social History PAST SOCIAL HISTORY: Negative for alcohol, tobacco or drugs. Physical Exam Vital Signs Vital Signs Date Time Temp Pulse Resp B/P (MAP) Pulse Ox O2 Delivery O2 Flow Rate FiO2 10/01/17 00:30 98.5 83 17 140/78 (98) 97 Physical Exam PE: GENERAL: Middle-aged white female in no acute distress. HEENT: PERRLA, EOMI. No scleral icterus or conjunctival pallor. No lid lag or facial droop. CARDIOVASCULAR: Regular rate and rhythm. No obvious murmurs to auscultation. No chest tenderness to palpation. Right port in place. RESPIRATORY: No obvious rhonchi or wheezing. Clear to auscultation. Breath sounds equal bilaterally. GASTROINTESTINAL: Abdomen soft, non-tender, nondistended. BS normal. MUSCULOSKELETAL: Extremities without clubbing, cyanosis, or edema. No obvious deformities. NEUROLOGICAL: Awake, alert and oriented x4. No focal neurologic deficits. Moving both upper and lower extremities spontaneously. Laboratory Laboratory Tests Test 10/01/17 01:00 10/01/17 04:15 White Blood Count 7.8 Red Blood Count 3.40 Hemoglobin 9.5 Hematocrit 28.8 Mean Corpuscular Volume 84.7 Mean Corpuscular Hemoglobin 27.9 Mean Corpuscular Hemoglobin Concent 32.9 Red Cell Distribution Width 14.9 Platelet Count 203 Mean Platelet Volume 7.6 Neutrophils (%) (Auto) 73.8 Lymphocytes (%) (Auto) 13.3 Monocytes (%) (Auto) 8.9 Eosinophils (%) (Auto) 3.1 Basophils (%) (Auto) 0.9 Neutrophils # (Auto) 5.8 Lymphocytes # (Auto) 1.0 Monocytes # (Auto) 0.7 Eosinophils # (Auto) 0.2 Basophils # (Auto) 0.1 CBC Comment DIFF FINAL Differential Comment Blood Urea Nitrogen 34 Creatinine 1.63 Random Glucose 88 Calcium Level 8.8 Magnesium Level 1.9 Sodium Level 136 Potassium Level 4.0 Chloride Level 100 Carbon Dioxide Level 25.9 Anion Gap 10 Estimat Glomerular Filtration Rate 35 Troponin I LESS THAN 0.02 Free Thyroxine 1.13 Free Triiodothyronine (T3) pg/dL 3.24 Thyroid Stimulating Hormone 3rd Gen 0.305 Result Diagram: 10/01/179910/01/1799 Caprini VTE Risk Assessment Caprini VTE Risk Assessment: No/Low Risk (score <= 1) Caprini Risk Assessment Model Point Value = 1 Point Value = 2 Point Value = 3 Point Value = 5 Age 41-60 Minor surgery BMI > 25 kg/m2 Swollen legs Varicose veins or History of unexplained or recurrent spontaneous Oral contraceptives or hormone replacement Sepsis (< 1 month) Serious lung disease, including pneumonia (< 1 month) Abnormal pulmonary function Acute myocardial infarction Congestive heart failure (< 1 month) History of inflammatory bowel disease Medical patient at bed rest Age 61-74 Arthroscopic surgery Major open surgery (> 45 min) Laparoscopic surgery (> 45 min) Malignancy Confined to bed (> 72 hours) Immobilizing plaster cast Central venous access Age >= 75 History of VTE Family history of VTE Factor V Leiden Prothrombin [id number] Lupus anticoagulant Anticardiolipin antibodies Elevated serum homocysteine Heparin-induced thrombocytopenia Other congenital or acquired thrombophilia Stroke (< 1 month) Elective arthroplasty Hip, pelvis, or leg fracture Acute spinal cord injury (< 1 month) Prophylaxis Regimen Total Risk Factor Score Risk Level Prophylaxis Regimen 0-1 Low Early ambulation 2 Moderate Order ONE of the following: *Sequential Compression Device (SCD) *Heparin 5000 units SQ BID 3-4 Higher Order ONE of the following medications: *Heparin 5000 units SQ TID *Enoxaparin/Lovenox 40 mg SQ daily (WT < 150 kg, CrCl > 30 mL/min) *Enoxaparin/Lovenox 30 mg SQ daily (WT < 150 kg, CrCl > 10-29 mL/min) *Enoxaparin/Lovenox 30 mg SQ BID (WT < 150 kg, CrCl > 30 mL/min) AND/OR *Sequential Compression Device (SCD) 5 or more Highest Order ONE of the following medications: *Heparin 5000 units SQ TID (Preferred with Epidurals) *Enoxaparin/Lovenox 40 mg SQ daily (WT < 150 kg, CrCl > 30 mL/min) *Enoxaparin/Lovenox 30 mg SQ daily (WT < 150 kg, CrCl > 10-29 mL/min) *Enoxaparin/Lovenox 30 mg SQ BID (WT < 150 kg, CrCl > 30 mL/min) AND *Sequential Compression Device (SCD) Assessment and Plan Problem List: (1) Chest pain ICD Code: R07.9 - Chest pain, unspecified (2) Brugada syndrome ICD Code: I49.8 - Other specified cardiac arrhythmias (3) Lupus ICD Code: L93.0 - Discoid lupus erythematosus (4) SHABANA (acute kidney injury) ICD Code: N17.9 - Acute kidney failure, unspecified Assessment and Plan A/P: 1. Chest Pain: acute onset of chest pain w/ palpitations, Trop negative, EKG w / evidence of Brugada. Check serial cardiac enzymes, telemetry. Morphine prn for pain. 2. Brugada: EKG w/ evidence of Brugada as above. Dr. English consulted by ER physician, will eval in am to assess need for AICD. Check Echo. Telemetry. 3. Lupus: On Chronic Steroid therapy, will resume Prednisone 40mg qd. Resume home MS Contin, pt requesting lower dose than home medication. 4. SHABANA: Acute on Chronic. Creatinine 1.63, producing 1.06 on 09/12/17. IVF for hydration, repeat labs in am. 5. DVT Prophylaxis: SCD/Teds 6. Social work for d/c planning as needed. 7. Case discussed w/ ER physician at length Rosangela Clements MD Oct 01, 2017 04:39
[2017-10-01] MEDS ORDERED: DIAZEPAM 10 MG TAB PO PRN (04:45)
[2017-10-01] MEDS: LEVOTHYROXINE SODIUM 125 MCG TAB PO SCH (05:17)
[2017-10-01] MEDS: SODIUM CHLOR 0.9% 1000 ML INJ 1,000 ML IV SCH ×2 (05:24→15:10)
[2017-10-01] MEDS: ACETAMINOPHEN/HYDROcodone 325 MG/5 MG TAB PO PRN ×3 (06:56→16:41)
[2017-10-01] MEDS ORDERED: LEVOTHYROXINE SODIUM 125 MCG TAB PO SCH (07:00)
[2017-10-01] MEDS ORDERED: MORPHINE SULFATE 15 MG CONTROLLED RELEASE TAB PO SCH (08:00)
[2017-10-01] MEDS: MAGNESIUM OXIDE 400 MG TAB PO SCH (08:27)
[2017-10-01] MEDS: SPIRONOLACTONE 25 MG TAB PO SCH (08:28)
[2017-10-01] MEDS: SUCRALFATE 1 GM TAB PO SCH ×3 (08:28→17:51)
[2017-10-01] MEDS: predniSONE 20 MG TAB PO SCH (08:29)
[2017-10-01] MEDS: DIAZEPAM 10 MG TAB PO PRN ×2 (08:30→16:41)
[2017-10-01] MEDS: FERROUS SULFATE 325 MG (65 MG ELEMENTAL IRON) TAB PO SCH ×2 (08:30→19:22)
[2017-10-01] MEDS: SODIUM CHLORIDE 0.9% FLUSH 10 ML FLUSH IV FLUSH SCH ×2 (08:31→21:00)
[2017-10-01] MEDS: DOCUSATE SODIUM 50 MG/SENNA 8.6 MG TAB PO SCH ×2 (08:31→22:10)
[2017-10-01] MEDS: MORPHINE SULFATE 30 MG CONTROLLED RELEASE TAB PO SCH ×3 (09:29→22:10)
--- NOTE | 2017-10-01 13:33 | MB ---
cc: SHARATH STEPHENS DO DATE OF CONSULTATION: 10/01/2017 REASON FOR CONSULTATION: Brugada type EKG. HISTORY OF PRESENT ILLNESS Brisa Hernandez is a 41-year-old female who presented to [facility] emergency room complaining of palpitations. She states that during these she has a quick sharp stabbing in her chest that lasts half a second and goes away. Usually when she has these it is because her potassium is too low. She was playing with her son and this is when she usually notices it. Because of this she came to the emergency room. She had an EKG done and because of the concern for a possible Brugada type pattern, I was called to see the patient. In speaking with her she denies chest pain, shortness of breath. She does state that her mom and dad were adopted but supposedly she just met some of her relatives on her mother's side and that Brugada runs in the family. She states that a few of her relatives have ICDs but for unknown reason. She does not know of any sudden cardiac within the family. Lastly, she does not know of any of them having arrhythmias. As far as she knows, she has had multiple episodes of palpitations which are short in nature and sounds like either PACs or PVCs, specifically when she has episodes of hypokalemia. The patient states that she has had episodes where she has fallen and unsure if she syncopized. She does not relate these to when she has had palpitations. PAST MEDICAL HISTORY 1. Lupus. 2. Anxiety / depression 3. Bipolar disorder 4. Chronic hypokalemia. 5. Adrenal insufficiency. 6. Chronic kidney disease. 7. Crohn disease. 8. Chronic pain. 9. Seizure disorder 10. Gastroparesis. PAST SURGICAL HISTORY 1. Appendectomy. 2. Right subclavian port 3. Partial hysterectomy 4. Dental extraction. ALLERGIES 1. Fish containing products 1. Cephalexin. 2. Gabapentin. 3. Ketorlac. 4. Penicillin. 5. Prochlorparazine. 6. Promethazine. FAMILY HISTORY: Patient's father and mother were both adopted but apparently recently has found some of her mother's side with a questionable history of Brugada syndrome and ICD was placed. She denies sudden cardiac within the family. SOCIAL HISTORY Denies alcohol, tobacco or drug abuse. REVIEW OF SYSTEMS 14-systems were reviewed including osteopathic pertinent positives and negatives above otherwise negative. PHYSICAL EXAMINATION Vital signs: Temperature 99.4, heart rate 81, blood pressure 116/59, respirations 16, pulse ox 96% on room air. General: The patient appears well in no acute distress, alert awake and oriented x3. Extraocular muscles intact. Mucous membranes moist. Neck: Supple. No JVD at 45 degrees. No carotid bruits heard bilaterally. Carotid upstroke is brisk in nature. Heart: Regular rate and rhythm. Positive first and second heart sounds with no murmurs, gallops or rubs. Lungs: Clear to auscultation bilaterally. No wheezes, rales or rhonchi. Abdomen: Soft, nontender, nondistended. No organomegaly noted. Extremities: No clubbing, cyanosis or edema. Femoral and distal pulses intact bilaterally. Neurologically: No focal deficits. Skin: Warm, dry and intact. Osteopathically with no kyphoscoliosis, lordosis or paraspinal tender points. LABORATORY WORK: Hemoglobin 9.5, hematocrit 28.8, platelets 203, potassium 4.0, BUN 34, creatinine 1.63, troponin negative x2. Electrocardiogram (October 01, 2017 at 00:21), sinus rhythm with first degree block, J-point elevation anteriorly with T-wave inversions possible type 1 Brugada type pattern. There may also be arm lead reversal. IMPRESSION 1. Heart palpitations, most likely due to PACs and PVCs which are noted on telemetry. 2. Brugada type pattern on EKG. 3. Questionable family history of Brugada syndrome. 4. Dehydration. 5. Chronic anemia. 6. Lupus. 7. Anxiety / depression. 8. Bipolar disorder. RECOMMENDATIONS Ms. Hernandez's EKG shows a possible Brugada type pattern which appears to be type 1. 1. As far as her family history goes apparently there are a few of them that have a Brugada type picture and had ICDs placed but the patient is unsure if this was due to arrhythmias, EKG or possible sudden cardiac . Apparently no one in the family has had sudden cardiac as far she knows. 2. At this time I would not consider her Brugada syndrome but has a Brugada pattern on EKG. 3. We will check an echo to look at her overall left ventricular function, cardiac structure and possible valvulopathies. 4. She will need further workup outpatient with Holter monitor or further rhythm analysis. 5. In general her episodes of syncope in the past were reviewed and apparently mostly said to deal with the patient being in pain although it is difficult to determine as she is not the best historian. Further recommendations will be made based on the hospital course. Thank you for allowing me to see Brisa Hernandez. If there are any questions, please do not hesitate to call. Sharath Stephens DO VGP/KENA /12:16 PM /1:04 PM
--- NOTE | 2017-10-01 21:24 | EKG ---
Date Performed: 10/01/2017 Time Performed: 10:07:21 PTAGE: 41 years EKG: Sinus rhythm WITH FIRST DEGREE AV BLOCK POSSIBLE LEFT ATRIAL ENLARGEMENT NONSPECIFIC INTRAVENTRICULAR CONDUCTION DELAY TYPE 1 BRUGADA PATTERN, EXCLUDE RECENT INFARCTION, CABG, MYOCARDITIS OR DRUG EFFECT ABNORMAL EC G NO PREVIOUS TRACING DOCTOR: Tong Keith Interpretating Date/Time 10/01/2017 21:23:32
[2017-10-01] MEDS: PANTOPRAZOLE SOD 40 MG DELAYED RELEASE TAB PO SCH (22:07)
[2017-10-02] VITALS (9 sets, daily range): BP systolic 100–125; BP diastolic 55–80; PULSE 69–82; RESP 16–18; TEMP 96.4–98.8; O2SAT 95–99
[2017-10-02] MEDS: ACETAMINOPHEN/HYDROcodone 325 MG/5 MG TAB PO PRN ×3 (00:50→21:46)
[2017-10-02] MEDS: DIAZEPAM 10 MG TAB PO PRN ×3 (00:50→18:23)
[2017-10-02] MEDS: SODIUM CHLOR 0.9% 1000 ML INJ 1,000 ML IV SCH ×2 (00:51→13:35)
--- NOTE | 2017-10-02 00:52 | EKG ---
Date Performed: 10/01/2017 Time Performed: 00:21:02 PTAGE: 41 years EKG: Sinus rhythm WITH FIRST DEGREE AV BLOCK INTRAVENTRICULAR CONDUCTION DELAY LATERAL MYOCARDIAL INFARCTION TYPE 1 BR UGADA PATTERN, EXCLUDE RECENT INFARCTION, CABG, MYOCARDITIS OR DRUG EFFECT ABNORMAL ECG Compared to t he PREVIOUS TRACING , V1/V2 now with more J-point elevation, possible Brugada pattern DOCTOR: Sharath English Interpretating Date/Time 10/02/2017 00:52:36
[2017-10-02] MEDS: MORPHINE SULFATE 30 MG CONTROLLED RELEASE TAB PO SCH ×2 (05:51→15:14)
[2017-10-02] MEDS: LEVOTHYROXINE SODIUM 125 MCG TAB PO SCH (05:52)
[2017-10-02 06:25] LABS: AUTOMATED NEUTROPHIL # 4.2 TH/MM3 (1.8-7.7); BASOPHIL # 0.1 TH/MM3 (0-0.2); BASOPHIL % 1.1 % (0.0-2.0); EOSINOPHIL # 0.1 TH/MM3 (0-0.4); EOSINOPHIL % 1.1 % (0.0-4.0); HEMATOCRIT 26.3 % (35.0-46.0); HEMO FLAGS DIFF FINAL; LYMPH % 20.5 % (9.0-44.0); LYMPHOCYTE # 1.4 TH/MM3 (1.0-4.8); MEAN CELL VOLUME 84.4 FL (80.0-100.0); MEAN CORPUSCULAR HEMOGLOBIN 26.9 PG (27.0-34.0); MEAN CORPUSCULAR HGB CONC 31.9 % (32.0-36.0); MONO % 14.4 % (0.0-8.0); NEUT % 62.9 % (16.0-70.0); PLATELET COUNT 211 TH/MM3 (150-450); RED BLOOD COUNT 3.12 MIL/MM3 (4.00-5.30); RED CELL DISTRIBUTION WIDTH 15.3 % (11.6-17.2); WHITE BLOOD COUNT 6.7 TH/MM3 (4.0-11.0)
[2017-10-02 06:37] LABS: ALT (GPT) 14 U/L (10-53); ANION GAP 6 MEQ/L (5-15); AST (GOT) 11 U/L (15-37); BICARBONATE 25.9 MEQ/L (21.0-32.0); BLOOD UREA NITROGEN 27 MG/DL (7-18); CHLORIDE 107 MEQ/L (98-107); GLOMERULAR FILTRATION RATE 48 ML/MIN (>89); POTASSIUM 3.7 MEQ/L (3.5-5.1); SODIUM (NA) 139 MEQ/L (136-145)
[2017-10-02 06:39] LABS: ALKALINE PHOSPHATASE 56 U/L (45-117); TOTAL BILIRUBIN ADULT 0.3 MG/DL (0.2-1.0)
--- NOTE | 2017-10-02 07:09 | EKG ---
Date Performed: 10/01/2017 Time Performed: 17:13:19 PTAGE: 41 years EKG: Sinus rhythm POSSIBLE LEFT ATRIAL ENLARGEMENT NONSPECIFIC INTRAVENTRICULAR CONDUCTION DELAY POSSIBLE TYPE 3 BRUGA DA PATTERN ABNORMAL ECG NO PREVIOUS TRACING DOCTOR: Tong Keith Interpretating Date/Time 10/02/2017 07:07:09
[2017-10-02] MEDS: SUCRALFATE 1 GM TAB PO SCH ×3 (08:00→20:38)
[2017-10-02] MEDS: MAGNESIUM OXIDE 400 MG TAB PO SCH (08:52)
[2017-10-02] MEDS: FERROUS SULFATE 325 MG (65 MG ELEMENTAL IRON) TAB PO SCH ×2 (08:52→18:23)
[2017-10-02] MEDS: predniSONE 20 MG TAB PO SCH (08:52)
[2017-10-02] MEDS: DOCUSATE SODIUM 50 MG/SENNA 8.6 MG TAB PO SCH ×2 (08:52→21:45)
[2017-10-02] MEDS: SPIRONOLACTONE 25 MG TAB PO SCH (08:52)
[2017-10-02] MEDS: SODIUM CHLORIDE 0.9% FLUSH 10 ML FLUSH IV FLUSH SCH ×2 (08:53→21:46)
--- NOTE | 2017-10-02 11:05 | ECHRPT ---
Indication: BRUGADA PATTERN EKG CONCLUSIONS Normal left ventricular size. Wall thickness is normal. The left ventricular systolic function is grossly normal on limited imaging. The left atrial size is borderline dilated. [id number] mitral valve regurgitation. There is trace tricuspid valve regurgitation. The estimated pulmonary arterial pressure is 31 mmHg. BP: 118 / 74 HR: 72 Rhythm: Sinus MEASUREMENTS (Male / Female) Normal Values Technical Quality:Fair 2D ECHO LV Diastolic Diameter PLAX 4.6 cm 4.2 - 5.9 / 3.9 - 5.3 cm LV Systolic Diameter PLAX 3.1 cm IVS Diastolic Thickness 0.8 cm 0.6 - 1.0 / 0.6 - 0.9 cm LVPW Diastolic Thickness 0.8 cm 0.6 - 1.0 / 0.6 - 0.9 cm LV Relative Wall Thickness 0.3 RV Internal Dim ED PLAX 3.1 cm LVOT Diameter 1.7 cm Aortic Root Diameter 3.1 cm LA Systolic Diameter LX 4.0 cm 3.0 - 4.0 / 2.7 - 3.8 cm M-MODE AV Cusp Separation MM 1.9 cm DOPPLER AV Peak Velocity 145.0 cm/s AV Peak Gradient 8.4 mmHg AV Mean Gradient 5.0 mmHg AV Velocity Time Integral 26.7 cm LVOT Peak Velocity 92.5 cm/s LVOT Peak Gradient 3.4 mmHg LVOT Velocity Time Integral 15.6 cm LVOT Cardiac Index 1500.6 cm/minm AV Area Cont Eq vti 1.3 cm AV Area Cont Eq pk 1.4 cm Mitral E Point Velocity 87.9 cm/s Mitral A Point Velocity 46.4 cm/s Mitral E to A Ratio 1.9 LV E' Lateral Velocity 14.7 cm/s Mitral E to LV E' Lateral Ratio 6.0 LV E' Septal Velocity 10.5 cm/s Mitral E to LV E' Septal Ratio 8.4 TR Peak Velocity 229.0 cm/s TR Peak Gradient 21.0 mmHg Right Atrial Pressure 10.0 mmHg Pulmonary Artery Systolic Pressu 31.0 mmHg Right Ventricular Systolic Press 31.0 mmHg PV Peak Velocity 88.7 cm/s PV Peak Gradient 3.1 mmHg FINDINGS LEFT VENTRICLE Normal left ventricular size. Wall thickness is normal. The left ventricular systolic function is grossly normal on limited imaging. RIGHT VENTRICLE Normal right ventricular size and systolic function. LEFT ATRIUM The left atrial size is borderline dilated. RIGHT ATRIUM The right atrial size is normal. ATRIAL SEPTUM Normal atrial septal thickness without atrial level shunting by limited color doppler interrogation. AORTA The aortic root and proximal ascending aorta are normal in size on limited imaging. MITRAL VALVE [id number] mitral valve regurgitation. AORTIC VALVE Trileaflet aortic valve. No aortic valve stenosis or regurgitation. TRICUSPID VALVE There is trace tricuspid valve regurgitation. The estimated pulmonary arterial pressure is 31 mmHg. PULMONARY VALVE No pulmonary valve regurgitation or stenosis. VESSELS The inferior vena cava is normal in size. PERICARDIUM No pericardial effusion. Randolph Payan MD (Electronically Signed) Final Date:02 October 2017 11:04
[2017-10-02] MEDS ORDERED: LEVO125T4 PO (11:47)
--- NOTE | 2017-10-02 14:19 | HHI.PR ---
Subjective Remarks She is feeling all right today. Denies any chest pain or shortness of breath currently. Objective Vital Signs Date Time Temp Pulse Resp B/P (MAP) Pulse Ox O2 Delivery O2 Flow Rate FiO2 10/02/17 12:00 98.5 79 16 106/58 (74) 95 10/02/17 07:54 98.2 74 16 109/71 (84) 99 10/02/17 07:25 69 10/02/17 04:05 78 10/02/17 03:25 98.8 72 18 118/74 (89) 99 10/02/17 00:00 78 10/01/17 23:59 99.4 74 18 122/64 (83) 97 10/01/17 20:00 84 10/01/17 19:47 98.8 62 18 134/63 (86) 98 10/01/17 17:38 98.4 76 16 104/58 (73) 96 10/01/17 16:10 79 I/O 10/01/17 10/01/17 10/01/17 10/02/17 10/02/17 10/02/17 07:00 15:00 23:00 07:00 15:00 23:00 Intake Total 1200 ml Balance 1200 ml Intake Oral 200 ml IV Total 1000 ml Result Diagram: 10/02/1751210/02/17512 Objective Remarks GENERAL: In bed. Appears comfortable SKIN: Warm and dry. HEAD: Normocephalic. EYES: No scleral icterus. No injection or drainage. NECK: Supple, trachea midline. No JVD. CARDIOVASCULAR: Regular rate and rhythm without murmurs, gallops, or rubs. RESPIRATORY: Breath sounds equal bilaterally. No accessory muscle use. GASTROINTESTINAL: Abdomen soft, non-tender, nondistended. MUSCULOSKELETAL: No cyanosis, or edema. BACK: Nontender without obvious deformity. No CVA tenderness. A/P Assessment and Plan //Chest Pain: acute onset of chest pain w/ palpitations, Trop negative, EKG w/ evidence of Brugada. Check serial cardiac enzymes, telemetry. Morphine prn for pain. = appreciate cardiology assistance. Echocardiogram with no concerning abnormalities. Mild valvular disease. //Brugada: EKG w/ evidence of Brugada as above. Dr. English consulted by ER physicianosmin in am to assess need for AICD. Check Echo. Telemetry. = Due to history of syncope, electrophysiology has been consulted. Discussed with both cardiology and EP physician. Appreciate assistance. //Lupus: On Chronic Steroid therapy, will resume Prednisone 40mg qd. Resume home MS Contin, pt requesting lower dose than home medication. //SHABANA: Acute on Chronic. Creatinine 1.63, producing 1.06 on 09/12/17. IVF for hydration, repeat labs in am. = Creatinine 1.24, improved from yesterday. // DVT Prophylaxis: SCD/Teds Discharge Planning Pending cardiology clearance Ayad Henderson MD Oct 02, 2017 14:19
--- NOTE | 2017-10-02 15:19 | PD.CARD.PN ---
Subjective Subjective Remarks No events overnight Feels ok today Objective Medications Current Medications Medications (Trade) Dose Ordered Sig/Osito Route Start Time Stop Time Status Last Admin Sodium Chloride 1,000 ml @ 100 mls/hr Q10H IV 10/01/17 04:11 10/02/17 13:35 (NS Flush) 2 ml UNSCH PRN IV FLUSH 10/01/17 04:15 (NS Flush) 2 ml BID IV FLUSH 10/01/17 09:00 10/01/17 08:31 (Zofran Inj) 4 mg Q6H PRN IVP 10/01/17 04:15 (Tylenol) 650 mg Q6H PRN PO 10/01/17 04:15 ([place] 5-325 Mg) 1 tab Q4H PRN PO 10/01/17 04:15 10/02/17 12:01 (Morphine Inj) 2 mg Q3H PRN IV PUSH 10/01/17 04:15 (Irais-Colace) 1 tab BID PO 10/01/17 09:00 10/02/17 08:52 (Milk Of Magnesia Liq) 30 ml Q12H PRN PO 10/01/17 04:15 (Senokot) 17.2 mg Q12H PRN PO 10/01/17 04:15 (Dulcolax Supp) 10 mg DAILY PRN RECTAL 10/01/17 04:15 (Lactulose Liq) 30 ml DAILY PRN PO 10/01/17 04:15 (Ferrous Sulfate) 325 mg BIDPC PO 10/01/17 09:00 10/02/17 08:52 (Mag-Ox) 400 mg DAILY PO 10/01/17 09:00 10/02/17 08:52 (Protonix) 40 mg HS PO 10/01/17 21:00 10/01/17 22:07 (Carafate) 1 gm TIDAC PO 10/01/17 08:00 10/02/17 12:02 (Deltasone) 40 mg DAILY PO 10/01/17 09:00 10/02/17 08:52 (Aldactone) 25 mg DAILY PO 10/01/17 09:00 10/02/17 08:52 (Valium) 10 mg TID PRN PO 10/01/17 06:00 10/02/17 08:52 (Synthroid) 125 mcg DAILY@0500 PO 10/01/17 05:00 10/02/17 05:52 (Oramorph Sr) 30 mg Q8HR PO 10/01/17 08:00 10/02/17 15:14 Vital Signs / I&O Vital Signs Date Time Temp Pulse Resp B/P (MAP) Pulse Ox O2 Delivery O2 Flow Rate FiO2 10/02/17 12:00 98.5 79 16 106/58 (74) 95 10/02/17 07:54 98.2 74 16 109/71 (84) 99 10/02/17 07:25 69 10/02/17 04:05 78 10/02/17 03:25 98.8 72 18 118/74 (89) 99 10/02/17 00:00 78 10/01/17 23:59 99.4 74 18 122/64 (83) 97 10/01/17 20:00 84 10/01/17 19:47 98.8 62 18 134/63 (86) 98 10/01/17 17:38 98.4 76 16 104/58 (73) 96 10/01/17 16:10 79 I/O 10/01/17 10/01/17 10/01/17 10/02/17 10/02/17 10/02/17 07:00 15:00 23:00 07:00 15:00 23:00 Intake Total 1200 ml Balance 1200 ml Intake Oral 200 ml IV Total 1000 ml Physical Exam GENERAL: NAD, AAOx3 SKIN: Warm and dry. HEAD: Atraumatic. Normocephalic. EYES: Pupils equal and round. No scleral icterus. No injection or drainage. ENT: No nasal bleeding or discharge. Mucous membranes pink and moist. NECK: Trachea midline. No JVD. CARDIOVASCULAR: Regular rate and rhythm. RESPIRATORY: No accessory muscle use. Clear to auscultation. Breath sounds equal bilaterally. GASTROINTESTINAL: Abdomen soft, non-tender, nondistended. Hepatic and splenic margins not palpable. MUSCULOSKELETAL: Extremities without clubbing, cyanosis, or edema. No obvious deformities. NEUROLOGICAL: Awake and alert. No obvious cranial nerve deficits. Motor grossly within normal limits. Five out of 5 muscle strength in the arms and legs. Normal speech. PSYCHIATRIC: Appropriate mood and affect; insight and judgment normal. Laboratory Laboratory Tests Test 10/01/17 17:00 10/02/17 05:13 Troponin I LESS THAN 0.02 NG/ML Free Thyroxine 1.30 NG/DL White Blood Count 6.7 TH/MM3 Red Blood Count 3.12 MIL/MM3 Hemoglobin 8.4 GM/DL Hematocrit 26.3 % Mean Corpuscular Volume 84.4 FL Mean Corpuscular Hemoglobin 26.9 PG Mean Corpuscular Hemoglobin Concent 31.9 % Red Cell Distribution Width 15.3 % Platelet Count 211 TH/MM3 Mean Platelet Volume 7.5 FL Neutrophils (%) (Auto) 62.9 % Lymphocytes (%) (Auto) 20.5 % Monocytes (%) (Auto) 14.4 % Eosinophils (%) (Auto) 1.1 % Basophils (%) (Auto) 1.1 % Neutrophils # (Auto) 4.2 TH/MM3 Lymphocytes # (Auto) 1.4 TH/MM3 Monocytes # (Auto) 1.0 TH/MM3 Eosinophils # (Auto) 0.1 TH/MM3 Basophils # (Auto) 0.1 TH/MM3 CBC Comment DIFF FINAL Differential Comment Blood Urea Nitrogen 27 MG/DL Creatinine 1.24 MG/DL Random Glucose 87 MG/DL Total Protein 6.3 GM/DL Albumin 3.2 GM/DL Calcium Level 8.3 MG/DL Alkaline Phosphatase 56 U/L Aspartate Amino Transf (AST/SGOT) 11 U/L Alanine Aminotransferase (ALT/SGPT) 14 U/L Total Bilirubin 0.3 MG/DL Sodium Level 139 MEQ/L Potassium Level 3.7 MEQ/L Chloride Level 107 MEQ/L Carbon Dioxide Level 25.9 MEQ/L Anion Gap 6 MEQ/L Estimat Glomerular Filtration Rate 48 ML/MIN Assessment and Plan Problem List: (1) Abnormal EKG ICD Codes: R94.31 - Abnormal electrocardiogram [ECG] [EKG] (2) SHABANA (acute kidney injury) ICD Codes: N17.9 - Acute kidney failure, unspecified (3) Lupus ICD Codes: L93.0 - Discoid lupus erythematosus (4) Anxiety ICD Codes: F41.9 - Anxiety disorder, unspecified (5) Dehydration ICD Codes: E86.0 - Dehydration Status: Resolved (6) Anemia ICD Codes: D64.9 - Anemia, unspecified Status: Chronic Assessment and Plan 1) Possible Brugada pattern on EKG Concern for syncopal episodes and family history of Brugada Syndrome 2) EF grossly normal by echo 3) Will have EP cardiology, Dr. Cervantes, see the patient for consideration of ICD vs. further work up Will defer to Dr. Cervantes, will see PRN, call with questions Sharath English DO Oct 02, 2017 15:19
--- NOTE | 2017-10-02 19:20 | MB ---
cc: NIKOLAI CALLE M.D. DATE OF CONSULTATION 10/02/17 ELECTROPHYSIOLOGY CONSULT REASON FOR CONSULTATION EKG change, possible Brugada syndrome. HISTORY OF PRESENT ILLNESS Mrs. Hernandez is a 41-year-old female with history of lupus, bipolar disorder, chronic hypokalemia, Crohn's disease, seizure, gastroparesis. She is the daughter off two adopted parents. They do not know about the history. There is no history of pacemaker or defibrillator in the family. There is no history of sudden as she knows. Also, she said she then contacted with her mother's side of the family. Apparently, there is no history of sudden and no abnormalities. She was admitted due to some palpitation and dizziness. She referred an episode of near syncope around 8 months ago and fell on her knees. During hospitalization EKG change in V1 and V2 observed. The patient was seen by Dr. English. I was consulted for evaluation. The chart was reviewed. The patient was evaluated. I discussed the case with the patient as well as Dr. English. ALLERGIES FISH, CEPHALEXIN, GABAPENTIN, KETOROLAC, PENICILLIN, PROCHLORPERAZINE, PROMETHAZINE. SOCIAL HISTORY Negative for smoking and drinking. FAMILY HISTORY Noncontributory to her current medical condition. MEDICATIONS At home, the patient removed was on: 1. Ferrous sulfate. 2. Aldactone. 3. Morphine. 4. Diazepam. 5. Potassium. 6. Magnesium. 7. Carafate. 8. Protonix. 9. Prednisone. 10. Levoxyl. REVIEW OF SYSTEMS She refers no chest pain or chest discomfort. No palpitation. No fever. PHYSICAL EXAMINATION GENERAL: She is alert, fully oriented. VITAL SIGNS: Her blood pressure 111/67, pulse 77, respiratory rate 18. LUNGS: Ventilated. CARDIOVASCULAR: S1-S2, regular. No gallop. No murmur. ABDOMEN: Soft. No mass. No bruits. EXTREMITIES: With no edema. CARDIOLOGY STUDIES Electrocardiogram shows sinus rhythm, diffuse ST changes. There is Brugada pattern in V2, more pronounced in V2 and also in V1. LABORATORY DATA Hemoglobin is 8.4 today, white blood cell 6.7, potassium 3.7, creatinine 1.24. Troponin less than 0.02. Toxicology is negative except for opiate, the patient is taking morphine. ASSESSMENT AND RECOMMENDATIONS Mrs. Hernandez apparently has no family history. Her mom and dad are both adopted. There is some communication with her mother's side of the family. There is no history of sudden . She is [id number], she just having near syncopal episode around 8 months ago. She has ___ because she felt her heart is fluttering. The QT at this point is around 500-520 milliseconds. The description of the dizziness and near syncope are not clear. As mentioned before she is 41-year-old. This is the first time she began to have some symptom. There is no need for flecainide challenge. The electrocardiogram has clear sign of possible Brugada. Heart rate is low, not a good candidate for beta mark because the QT is already prolonged, is ___ long QT1. She has a normal ejection fraction. Based on the syncopal episode and palpitation and electrocardiographic changes the best approach may be to put a defibrillator for sudden prevention. I discussed again the case extensively with the patient. I will keep her overnight. She will make her decision about what type of management she will decide to go for. I advised the patient to look for a second opinion at this point also. Nikolai Calle MD HS/EO /5:45 PM /6:57 PM
[2017-10-02] MEDS ORDERED: MUPIROCIN 2% OINT 1 APPLIC/GM SYR NASAL SCH (21:45)
[2017-10-02] MEDS ORDERED: POVIDONE IODINE 5% (ANTISEPSIS KIT) 4 APPLICATIONS EACH NARE SCH (21:45)
[2017-10-02] MEDS ORDERED: CHLORHEXIDINE GLUCONATE 2 % 1 PACK (2 CLOTHS) TOP SCH (21:45)
[2017-10-02] MEDS: PANTOPRAZOLE SOD 40 MG DELAYED RELEASE TAB PO SCH (21:45)
[2017-10-03] VITALS (10 sets, daily range): BP systolic 97–139; BP diastolic 58–90; PULSE 67–92; RESP 14–20; TEMP 97.5–98.9; O2SAT 98–100
[2017-10-03] MEDS: MORPHINE SULFATE 30 MG CONTROLLED RELEASE TAB PO SCH ×4 (00:22→21:28)
[2017-10-03] MEDS: SODIUM CHLOR 0.9% 1000 ML INJ 1,000 ML IV SCH ×3 (04:34→13:39)
[2017-10-03] MEDS: LEVOTHYROXINE SODIUM 125 MCG TAB PO SCH (04:35)
[2017-10-03] MEDS: DIAZEPAM 10 MG TAB PO PRN ×3 (04:35→23:08)
[2017-10-03 07:21] LABS: AUTOMATED NEUTROPHIL # 4.3 TH/MM3 (1.8-7.7); BASOPHIL # 0.1 TH/MM3 (0-0.2); BASOPHIL % 1.1 % (0.0-2.0); EOSINOPHIL # 0.1 TH/MM3 (0-0.4); EOSINOPHIL % 1.2 % (0.0-4.0); HEMO FLAGS DIFF FINAL; LYMPH % 26.9 % (9.0-44.0); LYMPHOCYTE # 1.9 TH/MM3 (1.0-4.8); MEAN CELL VOLUME 85.6 FL (80.0-100.0); MEAN CORPUSCULAR HEMOGLOBIN 27.2 PG (27.0-34.0); MEAN CORPUSCULAR HGB CONC 31.7 % (32.0-36.0); MONO % 11.2 % (0.0-8.0); NEUT % 59.6 % (16.0-70.0); PLATELET COUNT 210 TH/MM3 (150-450); RED BLOOD COUNT 3.04 MIL/MM3 (4.00-5.30); RED CELL DISTRIBUTION WIDTH 15.2 % (11.6-17.2); WHITE BLOOD COUNT 7.2 TH/MM3 (4.0-11.0)
[2017-10-03 07:46] LABS: BICARBONATE 27.8 MEQ/L (21.0-32.0); MAGNESIUM 1.7 MG/DL (1.5-2.5); POTASSIUM 3.5 MEQ/L (3.5-5.1)
[2017-10-03] MEDS: SUCRALFATE 1 GM TAB PO SCH ×3 (08:00→17:45)
[2017-10-03] MEDS: FERROUS SULFATE 325 MG (65 MG ELEMENTAL IRON) TAB PO SCH ×2 (08:53→17:47)
[2017-10-03] MEDS: MAGNESIUM OXIDE 400 MG TAB PO SCH (08:53)
[2017-10-03] MEDS: predniSONE 20 MG TAB PO SCH (08:53)
[2017-10-03] MEDS: SPIRONOLACTONE 25 MG TAB PO SCH (08:53)
[2017-10-03] MEDS: SODIUM CHLORIDE 0.9% FLUSH 10 ML FLUSH IV FLUSH SCH ×2 (08:53→21:28)
[2017-10-03] MEDS ORDERED: POTASSIUM CHLORIDE 20 MEQ CONTROLLED RELEASE TAB PO ONE (09:00)
[2017-10-03] MEDS: DOCUSATE SODIUM 50 MG/SENNA 8.6 MG TAB PO SCH ×2 (09:00→21:28)
--- NOTE | 2017-10-03 09:23 | HHI.PR ---
Subjective Remarks Follow up for syncope, suspected Brugada. The patient reports no chest pain, palpitations, or shortness of breath overnight. She is requesting her potassium be replaced because K 3.5 is low for her. She is going for AICD placement today. She has no other medical complaints at this time. Objective Vitals Vital Signs Date Time Temp Pulse Resp B/P (MAP) Pulse Ox O2 Delivery O2 Flow Rate FiO2 10/03/17 08:21 98.4 67 20 110/71 (84) 100 10/03/17 06:17 69 10/03/17 05:01 98.5 71 17 97/58 (71) 98 10/02/17 23:53 96.4 76 16 100/55 (70) 98 10/02/17 21:53 98.5 82 16 125/80 (95) 98 10/02/17 15:52 98.3 77 16 111/67 (82) 97 10/02/17 12:00 98.5 79 16 106/58 (74) 95 I/O 10/02/17 10/02/17 10/02/17 10/03/17 10/03/17 10/03/17 07:00 15:00 23:00 07:00 15:00 23:00 Intake Total 0 ml Output Total 250 ml Balance 0 ml -250 ml Intake Oral 0 ml Output Urine Total 250 ml # Voids 7 # Bowel Movements 2 Result Diagram: 10/03/1735 10/03/1735 Objective Remarks GENERAL: Well-nourished, well-developed middle aged female patient in [facility]. SKIN: Warm and dry. No rash. HEENT: Normocephalic. Atraumatic.Pupils equal and round. Mucous membranes pink and moist. NECK: Supple. Trachea midline. CARDIOVASCULAR: Regular rate and rhythm. S1, S2 noted. No murmur appreciated. RESPIRATORY: No accessory muscle use. Clear to auscultation. Breath sounds equal bilaterally. GASTROINTESTINAL: Abdomen soft, non-tender, nondistended. Normoactive bowel sounds x4. MUSCULOSKELETAL: No obvious deformities. Extremities without clubbing, cyanosis , or edema. NEUROLOGICAL: Awake and alert. No obvious cranial nerve deficits. Motor grossly within normal limits. Normal speech. PSYCHIATRIC: Appropriate mood and affect; insight and judgment normal. Medications and IVs Current Medications Medications (Trade) Dose Ordered Sig/Osito Route Start Time Stop Time Status Last Admin Sodium Chloride 1,000 ml @ 100 mls/hr Q10H IV 10/01/17 04:11 10/03/17 04:34 (NS Flush) 2 ml UNSCH PRN IV FLUSH 10/01/17 04:15 (NS Flush) 2 ml BID IV FLUSH 10/01/17 09:00 10/03/17 08:53 (Zofran Inj) 4 mg Q6H PRN IVP 10/01/17 04:15 (Tylenol) 650 mg Q6H PRN PO 10/01/17 04:15 ([place] 5-325 Mg) 1 tab Q4H PRN PO 10/01/17 04:15 10/02/17 21:46 (Morphine Inj) 2 mg Q3H PRN IV PUSH 10/01/17 04:15 (Irais-Colace) 1 tab BID PO 10/01/17 09:00 10/02/17 21:45 (Milk Of Magnesia Liq) 30 ml Q12H PRN PO 10/01/17 04:15 (Senokot) 17.2 mg Q12H PRN PO 10/01/17 04:15 (Dulcolax Supp) 10 mg DAILY PRN RECTAL 10/01/17 04:15 (Lactulose Liq) 30 ml DAILY PRN PO 10/01/17 04:15 (Ferrous Sulfate) 325 mg BIDPC PO 10/01/17 09:00 10/03/17 08:53 (Mag-Ox) 400 mg DAILY PO 10/01/17 09:00 10/03/17 08:53 (Protonix) 40 mg HS PO 10/01/17 21:00 10/02/17 21:45 (Carafate) 1 gm TIDAC PO 10/01/17 08:00 10/02/17 20:38 (Deltasone) 40 mg DAILY PO 10/01/17 09:00 10/03/17 08:53 (Aldactone) 25 mg DAILY PO 10/01/17 09:00 10/03/17 08:53 (Valium) 10 mg TID PRN PO 10/01/17 06:00 10/03/17 04:35 (Synthroid) 125 mcg DAILY@0500 PO 10/01/17 05:00 10/03/17 04:35 (Oramorph Sr) 30 mg Q8HR PO 10/01/17 08:00 10/03/17 00:22 (Betadine 5% Antisepsis Kit) 1 applic VP GENETIC EACH NARE 10/02/17 21:45 10/06/17 21:44 (Bactroban Nasal 2% Oint) 1 applic VP GENETIC NASAL 10/02/17 21:45 10/06/17 21:44 (Chlorhexidine 2% Cloth) 3 pack VP GENETIC TOP 10/02/17 21:45 10/06/17 21:44 A/P Problem List: (1) Chest pain ICD Code: R07.9 - Chest pain, unspecified (2) Brugada syndrome ICD Code: I49.8 - Other specified cardiac arrhythmias (3) Lupus ICD Code: L93.0 - Discoid lupus erythematosus (4) SHABANA (acute kidney injury) ICD Code: N17.9 - Acute kidney failure, unspecified Assessment and Plan 41-year-old female with a PMH of Lupus, Anxiety, Depression, Bipolar Disorder, Chronic Hypokalemia, Adrenal Insufficiency, Recurrent SHABANA, Crohn's Disease, Chronic Pain, Seizure Disorder and Gastroparesis who presented to the ER w/ complaints of chest pain, felt as though "heart was flipping". Chest Pain: acute onset of chest pain w/ palpitations, Trop negative, EKG w/ evidence of Brugada. Check serial cardiac enzymes, telemetry. Morphine prn for pain. -cardiology consulted, appreciate assistance. -Echocardiogram with no concerning abnormalities. Mild valvular disease. -Chest pain resolved Brugada: EKG w/ evidence of Brugada as above. -Due to history of syncope, electrophysiology has been consulted. -Discussed with both cardiology and EP physician. Appreciate assistance. -Dr. Cervantes planning for AICD placement today Lupus: On Chronic Steroid therapy -resume Prednisone 40mg qd. -Resume home MS Contin, pt requesting lower dose than home medication. SHABANA: Acute on Chronic. Creatinine 1.63, producing 1.06 on 09/12/17. -Give IVF for hydration, repeat labs show improvement with Cr 1.24 -Avoid nephrotoxins DVT Prophylaxis: SCD/Teds Discharge Planning Possible discharge later today when cleared by Dr. Cervantes after AICD placement. Brenda Marie PA-C Oct 03, 2017 9:23 am
[2017-10-03 10:47] LABS: INTERNATIONAL NORMALIZED RATIO 0.9 RATIO; PROTHROMBIN TIME - PATIENT 10.4 SEC (9.8-11.6)
[2017-10-03] MEDS ORDERED: VANCOMYCIN 500 MG VIAL ONE (11:03)
[2017-10-03] MEDS ORDERED: VANCOMYCIN HCL 1000 MG VIAL ONE (11:04)
[2017-10-03] MEDS ORDERED: LEVOFLOXACIN 500 MG PREMIX INJ 100 ML IV ONE (11:04)
[2017-10-03] MEDS ORDERED: LIDOCAINE HCL 2% 50 ML VIAL ONE (11:05)
[2017-10-03 11:11] LABS: BETA HCG QUANT LESS THAN 1 MIU/ML (0-5)
--- NOTE | 2017-10-03 12:31 | CATHPROC ---
[employer] HIS Report Study Information Study Number Admission Scheduled Start Study Start [id number] 10/01/2017 10/03/2017 Oct 03 2017 10:28AM Referring Institution Admit Source Facility Department 1 Other [facility] Lab Physician and Clinical Staff Initial Tamara Robin Motorized Squad Captain Caitlin Rodriguez,SAP SENIOR DEVELOPER Other Anesthesia, PHOTO EQUIPMENT TECHNICIAN Recorder Rebecca Cervantes,BSRN Scrub Balbir Hernández,RT(R) Procedures Performed Procedure Lead Insertion Equipment Time Transit Mechanic Description Size Mfg Part Number Used/Scraped DEFIBRILLATOR, AMORIA 7 VR-T 12:09 BIOTRONIK [id number] Used DX MRI 11:56 BIOTRONIK LEAD, PLEXA PRO-MRI DF 65/15 [id number] Used DERMABOND, ADHESIVE SKIN [id number] 10:33 CORDIS/PACER * Used GLUE MINI *[id number] TP-1103 10:33 Sgrouples SUTURE, STRIP PLUS 1/2" * Used *[id number] 10:33 [employer]ie PACER HUGHES, LIMB * 2530 *[id number] Used [id number] 10:33 [employer] PACER PACK, PACER CUSTOM * Used *[id number] 11:29 MEDL Mobile PACER SAFE SHEATH, FR8, 13CM FR 8 [id number] Used 11:48 Needle Sponge Count 2 22 Used 11:48 Needle Sponge Count 20 200 Used 11:48 Needle Sponge Count 3 3 Used SUTURE, 0 ETHIBOND [CT1] (CX21D), 8pk SUTURE, 2-0 VICRYL [CT1] (VEQ360N) SUTURE, 2-0 VICRYL [CT1] (VNV784S) [id number] 10:33 [facility] BLANKET,WARM AIR CCL * Used *[id number] [facility] PAD, ELECTROSURGICAL 10:33 * [id number] *[id number] Used SURGICAL GROUNDING ORANGE 9001-8510 10:33 [employer]. / * Used *33691 Equipment Model, Serial, Lot Number and Expiration Data Description Model Number Serial Number Lot Number Expiration Date DEFIBRILLATOR, AMORIA 7 VR-T [id number] 07-06-2018 DX MRI LEAD, PLEXA PRO-MRI DF 65/15 [id number] 05-05-2019 History: Allergies Allergy Reaction *MDRO Multi-Drug Resistant Cleared - 04/21/16 Organism Compazine DYSTONIC REACTION Keflex RASH,SWELLING Neurontin SEIZURES Penicillin RASH,SWELLING Phenergan DYSTONIC REACTION Reglan DYSTONIC REACTION Seafood SWELLING IN THROAT, SOB Toradol RASH Fish Containing Products SWELLING IN THROAT, SOB prochlorperazine DYSTONIC REACTION cephalexin RASH,SWELLING gabapentin SEIZURES promethazine DYSTONIC REACTION ketorolac RASH penicillin G RASH,SWELLING History: Risk Factors Family History of Hypertension Dyslipidemia Previous [place] Previous Heart Failure Premature CAD No No No No No Prior Valve Prior PCI Prior CABG Surgery No No No Cerebrovascular Peripheral Artery Chronic Lung On Dialysis Diabetes Disease Disease Disease No No No No No History: Symptoms/Diagnosis Selection Items Palpitations Labs Hgb (g/dl) Hct (%) RBC (MIL/MM3) WBC (l/cumm) Platelets (thousands) 11.60-17.00 35.00-51.00 4.00-5.90 4.00-11.00 150.00-450.00 8.3 26 3 7.2 210 Glucose (mg/dl) BUN (mg/dl) Creatinine (mg/dl) BUN:Creatinine (1:x) 74.00-106.00 7.00-18.00 0.50-1.30 10.00-20.00 88 28 1.2 23.3 Na (meq/l) K (meq/l) Cl (meq/l) CO2 (mmol/L) Ca (mg/dl) 136.00-145.00 3.50-5.10 98.00-107.00 21.00-32.00 8.50-10.10 138 3.5 105 27.8 8.1 PT (sec) INR (PTT:PT) 9.80-11.60 0.90-1.10 10.4 0.9 Medication Medication Total Dose (Bolus/Oral) Medication Total Dosage/Unit 2% XYLOCAINE 50 mL Medications (Bolus/Oral) Medication Time Given Dosage/Unit Administered By Reason 10/03/2017 11:51:44 2% XYLOCAINE 50 mL Anesthesia, PHOTO EQUIPMENT TECHNICIAN As per physicians verbal orde r AM 50 mL 2% XYLOCAINE given in lab by Anesthesia, PHOTO EQUIPMENT TECHNICIAN via Subcutaneous. Ordered by Tamara Cervantes. Reaso n: As per physicians verbal order. left upper chest Medication (Drip) Medication Time Given Dosage/Unit Concentration/Unit Diluent (ml) Solution 10/03/2017 11:24:42 IV Solutions 0 mL (IV) NaCl .9 AM IV Solutions given in lab by Anesthesia, PHOTO EQUIPMENT TECHNICIAN via Peripheral IV. Pump/Drip Flow = 50 ml/hr using NaCl .9. Ordered by Tamara Cervantes. Reason: As per physicians verbal order. 10/03/2017 11:25:15 IV Solutions 0 mL (IV) NaCl .9 AM IV Solutions given in lab by Anesthesia, PHOTO EQUIPMENT TECHNICIAN in Left Antecubital via Peripheral IV. Pump/Drip Flow = 50 ml/hr using NaCl .9. Ordered by Tamara Cervantes. Reason: As per physicians verbal order. 10/03/2017 11:20:10 LEVAQUIN 100 mL/hr 500 100 NaCl .9 AM 100 mL/hr LEVAQUIN given in lab by Anesthesia, PHOTO EQUIPMENT TECHNICIAN in Left Antecubital via Peripheral IV. Pump/Drip Flow = 0 ml/hr using NaCl .9 with a concentration of 500 in 100 ml. Ordered by Tamara Cervantes. Reason: As per physicians verbal order. Dep arted On. 10/03/2017 11:20:00 VANCOMYCIN DRIP 1 g AM 1 g VANCOMYCIN DRIP given in lab by Anesthesia, PHOTO EQUIPMENT TECHNICIAN in Left Antecubital via Peripheral IV. Ordered b Tamara Miner. Reason: As per physicians verbal order. Initial Case Assessment Cardiovascular HR NIBP Chest Pain 78 139/81 0 Edema Present Skin color Skin None Normal Warm Dry Neurological State Oriented to time-place- Alert Moves all extremities person Respiration - General Respiration Rate SpO2 (%) (B/min) 18 100 Final Case Assessment Cardiovascular HR Rhythm NIBP Chest Pain 74 sr 104/59 0 Edema Present Skin color Skin None Normal Warm Dry Circulatory - Right Pulses Radial 1 Scale (0,1,2,3,4,d) Circulatory - Left Pulses Radial 1 Scale (0,1,2,3,4,d) Neurological State Lethargic Moves all extremities Respiration - General Respiration Rate SpO2 (%) O2 (lpm) (B/min) 16 97 2 Chronological Log Time Study Chronological Log 11:08:30 Patient arrived via Bed. 11:08:32 Patient Name, D.O.B, / Armband Verified By R.N. 11:08:35 Consent signed by the physician and the patient and verified by the [employer] staff. 11:08:36 Pre-op and post- op instructions given; patient acknowledges understanding of instructions. 11:08:37 Verbal Stimulation=2 Physical Stimulation=2 Airway=2 Respiration=2 TOTAL=10. (0=absent, 1=l imited, 2=present) 11:08:48 Anesthesia at bedside. Assumes care of patient. Zora RICKY 11:08:55 Presedation assessment performed by [employer] RN. 11:08:57 Patient has been NPO for More than 6Hrs. 11:09:01 Skin Breakdown- abrasion over right eye 1 g VANCOMYCIN DRIP given in lab by Anesthesia, PHOTO EQUIPMENT TECHNICIAN in Left Antecubital via Peripheral IV. Ord ered by Helen, 11:20:00 Tamara. Reason: As per physicians verbal order. 100 mL/hr LEVAQUIN given in lab by Anesthesia, PHOTO EQUIPMENT TECHNICIAN in Left Antecubital via Peripheral IV. Pump /Drip Flow = 0 ml/hr 11:20:10 using NaCl .9 with a concentration of 500 in 100 ml. Ordered by Tamara Cervantes. Reason: As p er physicians verbal order. Departed On. 11:23:53 Patient Warmer Placed on the Table. 11:23:57 Disposable Defibrillator Pads Placed On Patient. 11:24:03 A # 20 IV was noted in the Antecubital (left). Grade = ~GRADE~ 11:24:14 A # ~SIZE~ IV was noted in the Subclav. Vein (Rt). Grade = ~GRADE~ port IV Solutions given in lab by Anesthesia, PHOTO EQUIPMENT TECHNICIAN via Peripheral IV. Pump/Drip Flow = 50 ml/hr usin g NaCl .9. Ordered by 11:24:42 Tamara Cervantes. Reason: As per physicians verbal order. IV Solutions given in lab by Anesthesia, PHOTO EQUIPMENT TECHNICIAN in Left Antecubital via Peripheral IV. Pump/Drip Flow = 50 ml/hr using 11:25:15 NaCl .9. Ordered by Tamara Cervantes. Reason: As per physicians verbal order. 11:25:41 History and physical on the chart or being dictated. Assessment: Initial Case, HR=78 BPM, UDRB=494/81 mmhg, Chest Pain=0, Edema=None, Color=Normal, Skin = Warm, Dry 11:25:45 Neurological: State=Alert, Ox3, [place] Respiration: Resp=18 B/min, TlH0=298 % 11::42 Table restraints applied according to hospital policy 11::44 Left Upper Chest Prepped Times Two. 11:26:55 Bovie ground pad applied to: right thigh First Sponge And Instrument Count Done by Balbir Hernández, RT(R). 11:27:00 Hypo's: 3, Sponges: 20, Bovie/scratch: 2 Sutures: 10, Blades: 1, Instruments: 26, Syveck Patches: 0 11:28:23 2% CHLORHEXIDINE GLUCONATE WASH AND NASAL SWIPE DONE PRIOR TO PROCEDURE. 11:32:42 Beta lab result less than 1. 11:40:04 Reference ECG taken 11:41:04 MD notified ready. 11:41:17 MD responded 11:45:45 MD arrived. 11:51:26 Immediate Presedation assesment performed by physician. Time Out. Correct patient, procedure, procedure equipment, site and side verified with physicia n present. Time 11:51:30 concurred by MD, individual staff and PHOTO EQUIPMENT TECHNICIAN. Time Out #2 - Consents verified, patient in correct position, all results are labled and displa yed, safety precautions 11:51:34 taken, antibiotics administered. Time out concurred by MD, individual staff and PHOTO EQUIPMENT TECHNICIAN in procedu re 11:51:41 Case Start 50 mL 2% XYLOCAINE given in lab by Anesthesia, PHOTO EQUIPMENT TECHNICIAN via Subcutaneous. Ordered by Tamara Cervantes. Reason: As per 11:51:44 physicians verbal order. left upper chest 11:54:40 Vascular access was obtained in the Subclav. Vein (Lft. 11:54:52 Surgical Incision Made. 11:57:07 A pocket was created at the L Upper Chest. 11:57:15 A SAFE SHEATH, FR8, 13CM FR 8 was advanced into the Subclav. Vein (Lft using the Percutaneo us technique. 11:57:28 A LEAD, PLEXA PRO-MRI DF 65/15 was inserted and positioned in the RV. 11:58:39 Lead placement verified under fluoroscopy 11:58:42 The RV lead impedance and threshold being tested. 11:59:22 RV lead repositioned. 12:02:00 The RV lead impedance and threshold being tested. 12:03:30 Lead placement repositioned and verified under fluoroscopy. 12:07:30 The RV lead impedance and threshold being tested again. 12:10:36 Pocket flushed with antibiotic solution 12:11:41 A DEFIBRILLATOR, IMPERIA 7 VR-T DX MRI was connected and placed in the pocket. Second Sponge And Instrument Count Done by Balbir Hernández RT(R). 12:14:29 Hypo's: 3, Sponges: 20, Bovie/scratch: 2 Sutures: 10, Blades: 1, Instruments: ~INSTRU~, Syveck Patches: ~SYVECK PATCH~ 12:15:34 PACU called. Spoke to Luiza 12:15:39 Bedside Report will be given. 12:18:04 A 2 Joul DFT was performed. 12:18:48 The DFT was Success at 20 Joules, 43 Ohms lead impedance and 4.5 ms charge time. 12:22:00 The pocket was closed. 12:24:30 Implant Procedure was performed. 12:24:37 A ICD Implant . (Single) 12:25:04 Steri-strips and a sterile dressing applied to site. Final Sponge And Instrument Count Done by Balbir Hernández RT(R). 12:26:31 Hypo's: 3, Sponges: 20, Bovie/scratch: 2 Sutures: 10, Blades: 1, Instruments: 26, Syveck Patches: 0 12:27:27 A sling will be placed on the affected arm. 12:27:38 No case complications noted. 12:27:38 Cine recording checked. 12:27:39 Case End 12:28:28 Implantable Device card placed in patient's chart. 12:28:31 Defibrillator and ground pads removed. Skin intact. Assessment: Final Case, HR=74 BPM, Rhythm=sr, JBEO=402/59 mmhg, Chest Pain=0, Edema=None, [place] r=Normal, Skin = Warm, Dry Right Pulses: Radial=1 12:29:19 Left Pulses: Radial=1 Neurological: State=Lethargic, [place] Respiration: Resp=16 B/min, SpO2=97 %, O2=2 lpm 12:38:34 Patient moved to stretcher End Study - Contrast Media Used In Study Contrast Total Opened (mL) Total Used (mL) Total Wasted (mL) Unspecified 0 0 0 End Study - Maximum Contrast Load Max Contrast Load (mL) 250.0 End Study - Radiation Exposure Fluoro Time (minutes) 4.0 End Study - Patient Disposition Complications Transferred To Interventional Outcome No Telemetry Bed successful
--- NOTE | 2017-10-03 12:41 | PD.CARD ---
SINGLE CHAMBER DEFIB IMPLANT PROCEDURE DATE: Oct 03, 2017 Prevention: Primary Single Chamber Defib Implant PROCEDURE: Single chamber defibrillator implantation and device testing. INDICATIONS: Ms. Hernandez is a 41 -year-old female with hx of recurrent episodes syncope, Brugada syndrome, high risks for sudden cardiac , possible malignant arrhythmia who undergo defibrillator implantation for sudden prevention. The risks, the nature and the benefit of the procedure are clearly stated to her . Risks include pneumothorax, cardiac perforation, stroke and even . She understood and agreed to proceed. PROCEDURE: After written, informed consent was obtained, the patient was brought to the EP Lab where she was prepped and draped in the sterile fashion. Conscious sedation was initiated and maintained throughout the procedure by anesthesiologist. Once sedation was verified, the left infraclavicular area was anesthetized with 2% Xylocaine. Using modified Seldinger technique, the left subclavian vein was cannulated on one occasion and one guide wire was advanced. Then, using #11 blade scalpel, a 3-cm incision was made two fingerbreadths below left clavicle. This incision was then taken down to the deep fascial layer using Bovie cautery and blunt dissection. Into the inferomedial direction, a device pocket was dissected, then the wire was dissected into the pocket. A 2-0 Vicryl suture was placed around the wires to prevent bleeding. At this point, over the wire, the 8- German dilator and introducer was advanced. As dilator and wire were removed, an active fixation right ventricular pacing, sensing and defibrillatory lead was advanced. After adequate pacing and sensing thresholds were obtained, the lead was secured in the pocket with #2 Ethibond suture. At that point, the pocket was copiously irrigated with antibiotic solution. The leads were connected to the generator and placed into the pocket. I did proceed with NIPS. Initial induction consisted of T-wave shock which induced ventricular fibrillation which was adequately detected and treated by the ICD generator, delivering a 20-joule defibrillatory shock converting the patient back into sinus rhythm. Shocking impedance was 43 ohms, charge time 4.3 seconds. At that point NIPS was complete. I did proceed with wound closure. The deep fascial layer was approximated with 2-0 Vicryl suture in a continuous fashion. The subcutaneous layer was approximated with 2-0 Vicryl suture in a continuous fashion. The subcuticular layer was approximated with 2-0 Vicryl suture in a continuous fashion. Dermabond adhesive was applied to the wound, followed by a sterile pressure dressing. There was no complication. The patient tolerated procedure. Blood loss minimal. 1. Implanted Hardware: The implanted defibrillator generator is a [employer], model number [id number], serial number [id number]. The right ventricular pacing, sensing and defibrillatory lead is a Biotronik model number 907621, serial number [id number]. 2. Thresholds: The right ventricular pacing threshold in the bipolar mode was 1.2volts at 0.5 milliseconds, lead impedance 580 ohms and R-wave at 4.4 mV. The right ventricular defibrillatory threshold less than 20 joules shocking, impedance 43 ohms, charge time 4.5 seconds. 3. Settings: The device set in VVI 40 defibrillatory portion for two zones, one zone for ventricular tachycardia between 190 and 250 beats per minute. Initial therapy consists of one burst of ATP, one ramp, 81%, 10 pulse, 10 millisecond decremental, followed by 20, then 30 and all subsequent shocks at 40 joules defibrillatory shock, the second zone for ventricular fibrillation above 250beats per minute, first therapy at 30 and all subsequent shocks at 40 joules defibrillatory shock. CONCLUSIONS: Successful defibrillator implantation and device testing. COMMENT AND RECOMMENDATIONS: The patient will be transferred to the telemetry unit, will be observed and when stable can be discharged home. Tamara Cervantes MD Oct 03, 2017 12:41
[2017-10-03] MEDS ORDERED: DO NOT ADM ANY ANTICOAGULANT DRUGS PRN (13:15)
[2017-10-03] MEDS ORDERED: *morphine SULFATE 8 MG/ML PERIprocedure ONLY ONE ×3 (13:26→14:11)
[2017-10-03] MEDS ORDERED: ACETAMINOPHEN/CODEINE 300 MG/30 MG TAB PO PRN ×2 (14:30)
[2017-10-03] MEDS ORDERED: ONDANSETRON HCL 4 MG/2 ML VIAL IV PUSH PRN (14:30)
[2017-10-03] MEDS ORDERED: SODIUM CHLORIDE 0.9% FLUSH 10 ML FLUSH IV FLUSH PRN (14:30)
[2017-10-03] MEDS ORDERED: *HYDROmorphone PF 1 MG VIAL PERIprocedural Use ONLY ONE (14:33)
--- NOTE | 2017-10-03 15:02 | EKG ---
Date Performed: 10/03/2017 Time Performed: 14:45:15 PTAGE: 41 years EKG: Baseline artifact present Sinus rhythm MODERATE INTRAVENTRICULAR CONDUCTION DELAY NONSPECIFIC T-WAVE ABNORMALITY BORDERLINE ECG No signific ant change from prior electrocardiogram. PREVIOUS TRACING : 10/01/2017 17.13 DOCTOR: Shine Galvan Interpretating Date/Time 10/03/2017 15:01:21
--- NOTE | 2017-10-03 15:15 | RADRPT ---
EXAM DATE/TIME: 10/03/2017 14:47 [facility] COMPARISON: CHEST SINGLE AP, August 14, 2017, 20:08. INDICATIONS : Post device placement. Rule-out pneumothorax. MEDICAL HISTORY : Gastroesophageal reflux disease. Thyroid disease. Seizures. Epilepsy. Atrial fibrillation. Gastroparesis. Esophagitis. Ovarian cysts. Kidney disease. Lupus. Crohn's disease. carcinoma, a ppendix. carcinoma, uterine. mrsa. clostridium difficile. SURGICAL HISTORY : Appendectomy. Hysterectomy. Endocrine surgery. Endometriosis surgery. ENCOUNTER: Initial ACUITY: 1 day PAIN SCORE: 6/10 LOCATION: Left chest FINDINGS: The [id number] in excellent position. There is no pneumothorax. There is a transvenous pacer on th e left. The pacemaker is in good position. Again, no pneumothorax is identified. The heart is normal size. The lungs are clear. The osseous structures are intact. CONCLUSION: 1. No pneumothorax identified following pacemaker placement. Troy Porter MD on October 03, 2017 at 15:12 Board Certified Radiologist. This report was verified electronically.
[2017-10-03] MEDS: ACETAMINOPHEN/HYDROcodone 325 MG/5 MG TAB PO PRN (17:46)
[2017-10-03] MEDS: PANTOPRAZOLE SOD 40 MG DELAYED RELEASE TAB PO SCH (21:28)
[2017-10-03] MEDS: MORPHINE SULFATE 4 MG/ML INJ IV PUSH PRN (23:08)
[2017-10-04] VITALS (12 sets, daily range): BP systolic 110–139; BP diastolic 58–71; PULSE 49–86; RESP 12–18; TEMP 97.6–98.4; O2SAT 97–99
[2017-10-04] MEDS: SODIUM CHLOR 0.9% 1000 ML INJ 1,000 ML IV SCH (02:03)
[2017-10-04] MEDS: LEVOTHYROXINE SODIUM 125 MCG TAB PO SCH (04:06)
[2017-10-04] MEDS: ACETAMINOPHEN/HYDROcodone 325 MG/5 MG TAB PO PRN ×2 (04:06→08:51)
[2017-10-04] MEDS: MORPHINE SULFATE 4 MG/ML INJ IV PUSH PRN (04:06)
[2017-10-04 06:14] LABS: BICARBONATE 26.3 MEQ/L (21.0-32.0); POTASSIUM 3.9 MEQ/L (3.5-5.1)
[2017-10-04] MEDS: DIAZEPAM 10 MG TAB PO PRN (06:15)
[2017-10-04] MEDS: MORPHINE SULFATE 30 MG CONTROLLED RELEASE TAB PO SCH (06:16)
[2017-10-04 06:21] LABS: AUTOMATED NEUTROPHIL # 5.7 TH/MM3 (1.8-7.7); BASOPHIL % 0.4 % (0.0-2.0); EOSINOPHIL % 0.2 % (0.0-4.0); HEMATOCRIT 25.7 % (35.0-46.0); HEMO FLAGS DIFF FINAL; LYMPH % 19.6 % (9.0-44.0); LYMPHOCYTE # 1.6 TH/MM3 (1.0-4.8); MEAN CELL VOLUME 84.9 FL (80.0-100.0); MEAN CORPUSCULAR HEMOGLOBIN 27.5 PG (27.0-34.0); MEAN CORPUSCULAR HGB CONC 32.4 % (32.0-36.0); MONO % 10.2 % (0.0-8.0); NEUT % 69.6 % (16.0-70.0); PLATELET COUNT 191 TH/MM3 (150-450); RED BLOOD COUNT 3.02 MIL/MM3 (4.00-5.30); WHITE BLOOD COUNT 8.2 TH/MM3 (4.0-11.0)
--- NOTE | 2017-10-04 08:37 | PD.CARD.PN ---
Subjective Subjective Remarks Feels okay. Objective Medications Current Medications Medications (Trade) Dose Ordered Sig/Osito Route Start Time Stop Time Status Last Admin Sodium Chloride 1,000 ml @ 100 mls/hr Q10H IV 10/01/17 04:11 10/03/17 13:39 (Tylenol) 650 mg Q6H PRN PO 10/01/17 04:15 ([place] 5-325 Mg) 1 tab Q4H PRN PO 10/01/17 04:15 10/04/17 04:06 (Morphine Inj) 2 mg Q3H PRN IV PUSH 10/01/17 04:15 10/04/17 04:06 (Iaris-Colace) 1 tab BID PO 10/01/17 09:00 10/03/17 21:28 (Milk Of Magnesia Liq) 30 ml Q12H PRN PO 10/01/17 04:15 (Senokot) 17.2 mg Q12H PRN PO 10/01/17 04:15 (Dulcolax Supp) 10 mg DAILY PRN RECTAL 10/01/17 04:15 (Lactulose Liq) 30 ml DAILY PRN PO 10/01/17 04:15 (Ferrous Sulfate) 325 mg BIDPC PO 10/01/17 09:00 10/03/17 17:47 (Mag-Ox) 400 mg DAILY PO 10/01/17 09:00 10/03/17 08:53 (Protonix) 40 mg HS PO 10/01/17 21:00 10/03/17 21:28 (Carafate) 1 gm TIDAC PO 10/01/17 08:00 10/03/17 17:45 (Deltasone) 40 mg DAILY PO 10/01/17 09:00 10/03/17 08:53 (Aldactone) 25 mg DAILY PO 10/01/17 09:00 10/03/17 08:53 (Valium) 10 mg TID PRN PO 10/01/17 06:00 10/04/17 06:15 (Synthroid) 125 mcg DAILY@0500 PO 10/01/17 05:00 10/04/17 04:06 (Oramorph Sr) 30 mg Q8HR PO 10/01/17 08:00 10/04/17 06:16 (Betadine 5% Antisepsis Kit) 1 applic HEDIS SPECIALIST EACH NARE 10/02/17 21:45 10/06/17 21:44 (Bactroban Nasal 2% Oint) 1 applic HEDIS SPECIALIST NASAL 10/02/17 21:45 10/06/17 21:44 (Chlorhexidine 2% Cloth) 3 pack HEDIS SPECIALIST TOP 10/02/17 21:45 10/06/17 21:44 Miscellaneous Information ALL NURSING DEPARTME... UNSCH PRN .XX 10/03/17 13:15 10/04/17 13:14 (Zofran Inj) 4 mg Q4H PRN IV PUSH 10/03/17 14:30 (NS Flush) 2 ml BID IV FLUSH 10/03/17 21:00 10/03/17 21:28 (NS Flush) 2 ml UNSCH PRN IV FLUSH 10/03/17 14:30 Vital Signs / I&O Vital Signs Date Time Temp Pulse Resp B/P (MAP) Pulse Ox O2 Delivery O2 Flow Rate FiO2 10/04/17 06:00 80 10/04/17 05:00 82 10/04/17 04:06 77 10/04/17 03:00 98.4 71 12 110/58 (75) 99 10/04/17 03:00 66 10/04/17 02:00 68 10/04/17 01:00 72 10/04/17 00:00 98.3 86 12 114/63 (80) 97 10/04/17 00:00 73 10/03/17 23:00 84 10/03/17 22:00 74 10/03/17 22:00 97.5 82 18 119/69 (86) 100 10/03/17 21:00 80 10/03/17 20:00 92 10/03/17 19:00 78 10/03/17 16:52 98 21 10/03/17 15:24 98.9 83 14 139/90 (106) 99 10/03/17 14:59 16 10/03/17 14:30 78 16 120/72 (88) 98 Room Air 10/03/17 14:16 16 10/03/17 14:00 80 16 115/78 (90) 98 Room Air 10/03/17 13:48 16 10/03/17 13:45 79 16 114/77 (89) 97 Room Air 11/28/17 13:31 16 10/03/17 13:30 79 16 125/80 (95) 98 Room Air 10/03/17 13:15 81 16 132/79 (96) 98 Room Air 10/03/17 13:00 88 16 135/78 (97) 99 Room Air 10/03/17 12:48 98.2 93 16 128/77 (94) 98 Room Air I/O 10/03/17 10/03/17 10/03/17 10/04/17 10/04/17 10/04/17 07:00 15:00 23:00 07:00 15:00 23:00 Intake Total 0 ml 480 ml Output Total 550 ml 750 ml Balance 0 ml -550 ml -750 ml 480 ml Intake Oral 0 ml 480 ml Output Urine Total 550 ml 750 ml # Voids 7 3 # Bowel Movements 2 1 Physical Exam GENERAL: Well-nourished, well-developed patient. SKIN: Warm and dry. Left chest wall incision well approximated without erythema or drainage. HEAD: Normocephalic. EYES: No scleral icterus. No injection or drainage. NECK: Supple, trachea midline. No JVD or lymphadenopathy. CARDIOVASCULAR: Regular rate and rhythm without murmurs, gallops, or rubs. RESPIRATORY: Breath sounds equal bilaterally. No accessory muscle use. GASTROINTESTINAL: Abdomen soft, non-tender, nondistended. EXTREMITIES: No cyanosis, or edema. NEUROLOGICAL: Awake, alert, and oriented x 3. Non-focal. Laboratory Laboratory Tests Test 10/03/17 10:20 10/04/17 04:45 10/04/17 05:50 Prothrombin Time 10.4 SEC Prothromb Time International Ratio 0.9 RATIO Human Chorionic Gonadotropin, Quant LESS THAN 1 MIU/ML Blood Urea Nitrogen 23 MG/DL Creatinine 1.10 MG/DL Random Glucose 91 MG/DL Calcium Level 8.0 MG/DL Sodium Level 140 MEQ/L Potassium Level 3.9 MEQ/L Chloride Level 108 MEQ/L Carbon Dioxide Level 26.3 MEQ/L Anion Gap 6 MEQ/L Estimat Glomerular Filtration Rate 55 ML/MIN White Blood Count 8.2 TH/MM3 Red Blood Count 3.02 MIL/MM3 Hemoglobin 8.3 GM/DL Hematocrit 25.7 % Mean Corpuscular Volume 84.9 FL Mean Corpuscular Hemoglobin 27.5 PG Mean Corpuscular Hemoglobin Concent 32.4 % Red Cell Distribution Width 15.0 % Platelet Count 191 TH/MM3 Mean Platelet Volume 7.1 FL Neutrophils (%) (Auto) 69.6 % Lymphocytes (%) (Auto) 19.6 % Monocytes (%) (Auto) 10.2 % Eosinophils (%) (Auto) 0.2 % Basophils (%) (Auto) 0.4 % Neutrophils # (Auto) 5.7 TH/MM3 Lymphocytes # (Auto) 1.6 TH/MM3 Monocytes # (Auto) 0.8 TH/MM3 Eosinophils # (Auto) 0.0 TH/MM3 Basophils # (Auto) 0.0 TH/MM3 CBC Comment DIFF FINAL Differential Comment Imaging Last Impressions Chest X-Ray 10/03/17 0000 Signed Impressions: Service Date/Time: Tuesday, October 03, 2017 14:47 - CONCLUSION: 1. No pneumothorax identified following pacemaker placement. Troy Porter MD Assessment and Plan Problem List: (1) S/P ICD (internal cardiac defibrillator) procedure ICD Codes: Z95.810 - Presence of automatic (implantable) cardiac defibrillator Plan: Stable for discharge from EP standpoint. Follow-up with Dr. michaud in 2 weeks per my discussion with him. (2) Brugada syndrome ICD Codes: I49.8 - Other specified cardiac arrhythmias Plan: ICD implantation for sudden cardiac prevention. Levaquin 500 mg daily for 3 days per my discussion with Dr. michaud. Darya Tillman Oct 04, 2017 08:37
[2017-10-04] MEDS: DOCUSATE SODIUM 50 MG/SENNA 8.6 MG TAB PO SCH (08:50)
[2017-10-04] MEDS: predniSONE 20 MG TAB PO SCH (08:50)
[2017-10-04] MEDS: SUCRALFATE 1 GM TAB PO SCH (08:50)
[2017-10-04] MEDS: MAGNESIUM OXIDE 400 MG TAB PO SCH (08:50)
[2017-10-04] MEDS: FERROUS SULFATE 325 MG (65 MG ELEMENTAL IRON) TAB PO SCH (08:50)
[2017-10-04] MEDS: SPIRONOLACTONE 25 MG TAB PO SCH (08:50)
[2017-10-04] MEDS: SODIUM CHLORIDE 0.9% FLUSH 10 ML FLUSH IV FLUSH SCH (08:53)
[2017-10-04] MEDS ORDERED: LEVOFLOXACIN 500 MG TAB PO SCH (09:00)
[2017-10-04] MEDS ORDERED: DIAZ10 PO (10:38)
[2017-10-04] MEDS ORDERED: LEVA500T33 PO (10:38)
--- NOTE | 2017-10-04 11:03 | HHI.DS ---
Discharge Summary Admission Date Oct 01, 2017 at 04:12 Discharge Date: Oct 04, 2017 Admitting Diagnosis Possible Brugada, SHABANA. (1) Chest pain ICD Code: R07.9 - Chest pain, unspecified (2) Brugada syndrome ICD Code: I49.8 - Other specified cardiac arrhythmias (3) Lupus ICD Code: L93.0 - Discoid lupus erythematosus (4) SHABANA (acute kidney injury) ICD Code: N17.9 - Acute kidney failure, unspecified Procedures ICD implantation for sudden cardiac prevention. Brief History - From Admission This is a 41-year-old female with a PMH of Lupus, Anxiety, Depression, Bipolar Disorder, Chronic Hypokalemia, Adrenal Insufficiency, Recurrent SHABANA, Crohn's Disease, Chronic Pain, Seizure Disorder and Gastroparesis who presented to the ER w/ complaints of chest pain, felt as though "heart was flipping". Symptoms started acutely tonight, states felt like K+ was low again. On arrival, BP 140/ 78, HR 83, O2 sat 97% on RA, Afebrile. CBC essentially unremarkable except for mildly elevated neutrophil count. K+ 4.0. Creatinine 1.63, previously 1.06 on 09/12/17. Trop negative. EKG w/ evidence of Brugada. Dr. English consulted by ER physician, plan is to admit for further work up. CBC/BMP: 10/04/17 0550 10/04/17 0445 Significant Findings Laboratory Tests Test 10/01/17 11:11 10/01/17 17:00 10/02/17 05:13 10/03/17 06:35 Troponin I LESS THAN 0.02 NG/ML LESS THAN 0.02 NG/ML Red Blood Count 3.12 MIL/MM3 (4.00-5.30) 3.04 MIL/MM3 (4.00-5.30) Hemoglobin 8.4 GM/DL (11.6-15.3) 8.3 GM/DL (11.6-15.3) Hematocrit 26.3 % (35.0-46.0) 26.0 % (35.0-46.0) Mean Corpuscular Hemoglobin 26.9 PG (27.0-34.0) Mean Corpuscular Hemoglobin Concent 31.9 % (32.0-36.0) 31.7 % (32.0-36.0) Monocytes (%) (Auto) 14.4 % (0.0-8.0) 11.2 % (0.0-8.0) Monocytes # (Auto) 1.0 TH/MM3 (0-0.9) Blood Urea Nitrogen 27 MG/DL (7-18) 28 MG/DL (7-18) Creatinine 1.24 MG/DL (0.50-1.00) 1.26 MG/DL (0.50-1.00) Total Protein 6.3 GM/DL (6.4-8.2) Albumin 3.2 GM/DL (3.4-5.0) 2.7 GM/DL (3.4-5.0) Calcium Level 8.3 MG/DL (8.5-10.1) 8.1 MG/DL (8.5-10.1) Aspartate Amino Transf (AST/SGOT) 11 U/L (15-37) Estimat Glomerular Filtration Rate 48 ML/MIN (>89) 47 ML/MIN (>89) Test 10/03/17 10:20 10/04/17 04:45 10/04/17 05:50 Blood Urea Nitrogen 23 MG/DL (7-18) Creatinine 1.10 MG/DL (0.50-1.00) Calcium Level 8.0 MG/DL (8.5-10.1) Chloride Level 108 MEQ/L (98-107) Estimat Glomerular Filtration Rate 55 ML/MIN (>89) Red Blood Count 3.02 MIL/MM3 (4.00-5.30) Hemoglobin 8.3 GM/DL (11.6-15.3) Hematocrit 25.7 % (35.0-46.0) Monocytes (%) (Auto) 10.2 % (0.0-8.0) Imaging Last Impressions Chest X-Ray 10/03/17 0000 Signed Impressions: Service Date/Time: Tuesday, October 03, 2017 14:47 - CONCLUSION: 1. No pneumothorax identified following pacemaker placement. Troy Porter MD PE at Discharge GENERAL: laying in bed. Left arm in sling CARDIOVASCULAR: Regular rate and rhythm. RESPIRATORY: No accessory muscle use. Clear to auscultation. Breath sounds equal bilaterally. GASTROINTESTINAL: Abdomen soft, non-tender, nondistended. Normoactive bowel sounds x4. MUSCULOSKELETAL: moving extremities, no edema NEUROLOGICAL: Awake and alert. Normal speech. Pt update on day of discharge Pt complains of chronic pain, states she goes to pain management. she is comfortable going home today and looking forward to it. Request a few tablets refill of valium and script for synthroid. no nausea or vomiting, lightheadedness or dizziness Hospital Course 41-year-old female with a PMH of Lupus, Anxiety, Depression, Bipolar Disorder, Chronic Hypokalemia, Adrenal Insufficiency, Recurrent SHABANA, Crohn's Disease, Chronic Pain, Seizure Disorder and Gastroparesis who presented to the ER w/ complaints of chest pain, felt as though "heart was flipping". Chest Pain:resolved. EKG w/ evidence of Brugada. -cardiology following. Due to history of syncope, electrophysiology has been consulted. s/p ICD placement for sudden prevention. Pt has been cleared for discharge. Needs 3 days of levaquin. Script in chart. Pt follows pain management as an outpatient. Request a few pills of valium. Lupus: On Chronic Steroid therapy -resume Prednisone 40mg qd and pain meds SHABANA: Acute on Chronic. Creatinine 1.63 initially now 1.10, was 1.06 on . -s/p IVF for hydration, -Avoid nephrotoxins Pt Condition on Discharge: Stable Discharge Disposition: Discharge Home Discharge Time: > 30 minutes Discharge Instructions DIET: Follow Instructions for: Heart Healthy Diet Activities you can perform: See Additionl Instruction Other Activity Instructions: per recs from cards. keep left arm in sling until cleared by cards Follow up Referrals: Cardiology - 1 Week with Tamara Cervantes MD PCP Follow-up - 1 Week New Medications: Levofloxacin (Levaquin) 500 Mg Tablet 500 MG PO DAILY, #3 Continued Medications: Cholecalciferol (Vitamin D3) 10,000 Unit Cap 16160 UNITS PO Q3D @ HS for Nutritional Supplement, #1 BOTTLE 0 Refills Clindamycin (Clindamycin) 150 Mg Cap 300 MG PO Q6H for Infection for 10 Days, #80 CAP 0 Refills Diazepam (Valium) 10 Mg Tab 10 MG PO TID PRN for muscle spasm, #4 TAB 0 Refills (This prescription has been renewed) Ferrous Sulfate (Ferrous Sulfate) 325 Mg (65 Mg Iron) Tablet 325 MG PO BIDPC for Nutritional Supplement, #60 TAB 0 Refills Levothyroxine (Levothyroxine) 125 Mcg Tab 125 MCG PO DAILY for Thyroid, #30 TAB 0 Refills (This prescription has been renewed) Magnesium Oxide (Magnesium Oxide) 400 Mg Tab 400 MG PO DAILY for Nutritional Supplement, TAB 0 Refills Morphine ER (Ms Contin) 15 Mg Tab 30 MG PO Q8H for Pain Management, TAB 0 Refills Pantoprazole (Pantoprazole) 40 Mg Tab 40 MG PO HS for Reflux, #30 TAB 0 Refills Potassium Chloride ER (Potassium Chloride ER) 20 Meq Tab 40 MEQ PO TID for Electrolyte Replacement, #90 TAB 0 Refills Prednisone (Prednisone) 20 Mg Tab 40 MG PO DAILY for Control Inflammation, #25 TAB 0 Refills Take 40mg (2 tabs) daily x7 days, then 20mg (1 tab) daily x7 days, then 10mg (1/2 tab) daily x7days, then stop. Spironolactone (Spironolactone) 25 Mg Tab 25 MG PO DAILY, #30 TAB 0 Refills Sucralfate (Carafate) 1 Gram Tab 1 GM PO TID for Ulcer Prevention, #90 TAB 3 Refills On empty stomach Daniela Wilder MD Oct 04, 2017 11:03
--- NOTE | 2017-10-04 14:07 | EKG ---
Date Performed: 10/04/2017 Time Performed: 05:36:00 PTAGE: 41 years EKG: Sinus rhythm Prolonged QT interval Low QRS voltages in precordial leads Borderline ECG No significant change from prior electrocardiogram. PREVIOUS TRACING : 10/03/2017 14.45 DOCTOR: Shine Galvan Interpretating Date/Time 10/04/2017 14:06:39
== END 2017-10-04 12:02 | disposition home or self-care (01) ==
LOC: NEPE 00:02 → INTOOBSV 04:12 → NEDA 04:12 → NEPGCP 05:44 → HCIS 10-03 11:27
PROVIDERS: ADMIT Hospitalist; ATTEND Hospitalist
DX: I49.8 Other specified cardiac arrhythmias (principal); L93.0 Discoid lupus erythematosus; R42 Dizziness and giddiness; R00.2 Palpitations; E27.40 Unspecified adrenocortical insufficiency; G89.29 Other chronic pain; E87.6 Hypokalemia; G40.909 Epilepsy, unspecified, not intractable, without status epilepticus; K31.84 Gastroparesis; K50.90 Crohn's disease, unspecified, without complications; N18.9 Chronic kidney disease, unspecified; F41.9 Anxiety disorder, unspecified; F31.9 Bipolar disorder, unspecified
CPT/HCPCS: 00530; 33249; 71010; 80048; 80053; 80069; 80307; 82306; 83735; 84439; 84443; 84481; 84484; 84702; 85025; 85610; 93005; 93306; 93641; 96361; 96374; 96376; 99285; C1722; C1777; G0378; J1170; J1956; J2270; J3370; J7030; J7512; 96360

== ENCOUNTER 2017-10-15 18:01 | Emergency (ER) | payer OTHER ==
[~2017-10-15] VITALS: Ht 175.3 cm; Wt 65.0 kg
[~2017-10-15 18:01] MED LIST changes: -AMIL5 PO; -K-PHTAB PO; +LEVA500T33 PO; +LEVO125T4 PO; -LEVO25TA4 PO; -MAGICADU2 SWISH-SWAL; +MS C15TA7 PO; -NYST1000 SWISH-SWAL; -PERC5TAB12 PO; -SPIR25 PO; +SPIR25TA PO
[2017-10-15 18:22] VITALS: BP 156/92; PULSE 90; RESP 18; O2SAT 100
--- NOTE | 2017-10-15 18:38 | PD ---
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 Patient states she had an AICD placed 11 days ago. Since then she has felt "shocks" in the left chest. They're not painful. She denies any palpitations or shortness of breath. She does not have any chest pain. She denies any recent illnesses, fever, chills. She has no symptoms to report. PFSH Past Medical History Arthritis: No Asthma: No Atrial Fibrillation: No Autoimmune Disease: Yes (LUPUS ) Blood Disorders: No Bipolar Disorder: Yes Anxiety: Yes Depression: No Heart Rhythm Problems: No Cancer: Yes (APPENDIX 2002) Cardiac Catheterization: No Cardiovascular Problems: Yes (AICD) High Cholesterol: No Chemotherapy: No Chest Pain: No Congestive Heart Failure: No COPD: No Cerebrovascular Accident: No Diabetes: No Diminished Hearing: No Endocrine: No Gastrointestinal Disorders: Yes (GASTROPARESIS, esophagitis) GERD: Yes Genitourinary: Yes (RECURRENT UTI'S, NEPHRITIS, kidney disease) Headaches: Yes Hiatal Hernia: No Heparin Induced Thrombocytopen: No Hypertension: No Immune Disorder: Yes (CROHN'S, SLE) Implanted Vascular Access Dvce: Yes (RIGHT SUBCLAVIAN PORT VAD) Kidney Stones: Yes Musculoskeletal: No Neurologic: Yes (EPILEPSY) Psychiatric: No Reproductive: No Respiratory: No Immunizations Current: Yes Migraines: Yes Myocardial Infarction: No Pneumonia: Yes Radiation Therapy: No Renal Failure: No Seizures: Yes (juvenile epilepsy) Sickle Cell Disease: No Sleep Apnea: No Thyroid Disease: Yes (HYPOTHYROIDISM) Ulcer: Yes (Pt states she has severe ulcers from throat to rectum) Tetanus Vaccination: < 5 Years Influenza Vaccination: Yes PNEUMOCCOCAL Vaccine (Year): 3 ?: Not : 2 Para: 1 Miscarriage: 1 : 0 Ectopic : Yes (AT 17 YEARS OF AGE) Ovarian Cysts: Yes Past Surgical History Abdominal Surgery: Yes (multiple Laps) AICD: Yes (BIOTRONIC) Appendectomy: Yes Arteriovenous Shunt: No Body Medical Devices: RIGHT SUBCLAVIAN PORT VAD Cardiac Surgery: Yes (AICD ) Coronary Artery Bypass Graft: No Ear Surgery: No Endocrine Surgery: Yes Eye Surgery: No Genitourinary Surgery: Yes (Interstitial cystitis) Gynecologic Surgery: Yes Hysterectomy: Yes (PARTIAL) Insulin Pump: No Joint Replacement: No Neurologic Surgery: No Oral Surgery: Yes (Removal of abscess) Pacemaker: No Thoracic Surgery: No Other Surgery: Yes (OVARIAN CYST) Social History Alcohol Use: No (PT DENIES ) Tobacco Use: No Substance Use: No Allergies-Medications (Allergen,Severity, Reaction): Coded Allergies: Fish Containing Products (Unverified Allergy, Severe, SWELLING IN THROAT, SOB, 10/01/17) cephalexin (Unverified Allergy, Severe, RASH,SWELLING, 10/01/17) ketorolac (Unverified Allergy, Severe, RASH, 10/01/17) penicillin G (Unverified Allergy, Severe, RASH,SWELLING, 10/01/17) prochlorperazine (Unverified Allergy, Mild, DYSTONIC REACTION, 10/01/17) promethazine (Unverified Allergy, Mild, DYSTONIC REACTION, 10/01/17) gabapentin (Unverified Adverse Reaction, Severe, SEIZURES, 10/01/17) Reported Meds & Prescriptions Reported Meds & Active Scripts Active Levaquin (Levofloxacin) 500 Mg Tablet 500 Mg PO DAILY Valium (Diazepam) 10 Mg Tab 10 Mg PO TID PRN Levothyroxine (Levothyroxine Sodium) 125 Mcg Tab 125 Mcg PO DAILY Clindamycin (Clindamycin HCl) 150 Mg Cap 300 Mg PO Q6H 10 Days Carafate (Sucralfate) 1 Gram Tab 1 Gm PO TID On empty stomach Prednisone 20 Mg Tab 40 Mg PO DAILY Take 40mg (2 tabs) daily x7 days, then 20mg (1 tab) daily x7 days, then 10mg (1/2 tab) daily x7days, then stop. Potassium Chloride ER (Potassium Chloride) 20 Meq Tab 40 Meq PO TID Ferrous Sulfate 325 Mg (65 Mg Iron) Tablet 325 Mg PO BIDPC Pantoprazole (Pantoprazole Sodium) 40 Mg Tab 40 Mg PO HS Vitamin D3 (Cholecalciferol) 10,000 Unit Cap 20,000 Units PO Q3D @ HS Reported Spironolactone 25 Mg Tab 25 Mg PO DAILY Ms Contin (Morphine Sulfate) 15 Mg Tab 30 Mg PO Q8H Magnesium Oxide 400 Mg Tab 400 Mg PO DAILY Review of Systems Except as stated in HPI: all other systems reviewed are Neg Physical Exam Narrative GENERAL: Well-nourished, well-developed female patient, in no acute distress. SKIN: Focused skin assessment warm/dry. HEAD: Normocephalic. EYES: No scleral icterus. No injection or drainage. NECK: Supple, trachea midline. No JVD or lymphadenopathy. CARDIOVASCULAR: Regular rate and rhythm without murmurs, gallops, or rubs. RESPIRATORY: Breath sounds equal bilaterally. No accessory muscle use. Right anterior chest port in place. There is a palpable left AICD with incision site well approximated. No erythema or edema. Site is nontender to palpation. GASTROINTESTINAL: Abdomen soft, non-tender, nondistended. MUSCULOSKELETAL: No cyanosis, or edema. BACK: Nontender without obvious deformity. No CVA tenderness. Data Data Last Documented VS Vital Signs Date Time Temp Pulse Resp B/P (MAP) Pulse Ox O2 Delivery O2 Flow Rate FiO2 10/15/17 20:40 10/15/17 18:51 100 Room Air 10/15/17 18:22 90 18 Orders Orders Electrocardiogram (10/15/17 ) Basic Metabolic Panel (Bmp) (10/15/17 18:42) Ckmb (Isoenzyme) Profile (10/15/17 18:42) Complete Blood Count With Diff (10/15/17 18:42) Magnesium (Mg) (10/15/17 18:42) Prothrombin Time / Inr (Pt) (10/15/17 18:42) Act Partial Throm Time (Ptt) (10/15/17 18:42) Troponin I (10/15/17 18:42) Chest, Single Ap (10/15/17 18:42) Ecg Monitoring (10/15/17 18:42) Bilateral Bp Monitoring (10/15/17 18:42) Iv Access Insert/Monitor (10/15/17 18:42) Oximetry (10/15/17 18:42) Oxygen Administration (10/15/17 18:42) Sodium Chloride 0.9% Flush (Ns Flush) (10/15/17 18:45) Sodium Chlorid 0.9% 500 Ml Inj (Ns 500 M (10/15/17 18:45) Sodium Chlor 0.9% 1000 Ml Inj (Ns 1000 M (10/15/17 20:00) Ed Discharge Order (10/15/17 20:06) Heparin Central Flush (Heparin Central F (10/15/17 20:30) Labs Laboratory Tests Test 10/15/17 18:45 White Blood Count 7.7 TH/MM3 Red Blood Count 3.42 MIL/MM3 Hemoglobin 8.9 GM/DL Hematocrit 27.8 % Mean Corpuscular Volume 81.3 FL Mean Corpuscular Hemoglobin 26.0 PG Mean Corpuscular Hemoglobin Concent 32.0 % Red Cell Distribution Width 15.8 % Platelet Count 205 TH/MM3 Mean Platelet Volume 7.1 FL Neutrophils (%) (Auto) 56.7 % Lymphocytes (%) (Auto) 30.7 % Monocytes (%) (Auto) 7.7 % Eosinophils (%) (Auto) 3.5 % Basophils (%) (Auto) 1.4 % Neutrophils # (Auto) 4.4 TH/MM3 Lymphocytes # (Auto) 2.4 TH/MM3 Monocytes # (Auto) 0.6 TH/MM3 Eosinophils # (Auto) 0.3 TH/MM3 Basophils # (Auto) 0.1 TH/MM3 CBC Comment DIFF FINAL Differential Comment Prothrombin Time 10.2 SEC Prothromb Time International Ratio 1.0 RATIO Activated Partial Thromboplast Time 24.9 SEC Blood Urea Nitrogen 31 MG/DL Creatinine 1.44 MG/DL Random Glucose 122 MG/DL Calcium Level 8.5 MG/DL Magnesium Level 1.8 MG/DL Sodium Level 136 MEQ/L Potassium Level 3.8 MEQ/L Chloride Level 101 MEQ/L Carbon Dioxide Level 25.7 MEQ/L Anion Gap 9 MEQ/L Estimat Glomerular Filtration Rate 40 ML/MIN Total Creatine Kinase 50 U/L Troponin I LESS THAN 0.02 NG/ML MDM Medical Decision Making Medical Screen Exam Complete: Yes Emergency Medical Condition: Yes Medical Record Reviewed: Yes Differential Diagnosis Paresthesia versus neuralgia versus surgical site infection versus arrhythmia versus medical claims assistant malfunction Narrative Course 42-year-old female presents to emergency department for evaluation. Patient appears without distress. [facility] is contacted to evaluate the device. Laboratory Tests Test 10/15/17 18:45 White Blood Count 7.7 TH/MM3 Red Blood Count 3.42 MIL/MM3 Hemoglobin 8.9 GM/DL Hematocrit 27.8 % Mean Corpuscular Volume 81.3 FL Mean Corpuscular Hemoglobin 26.0 PG Mean Corpuscular Hemoglobin Concent 32.0 % Red Cell Distribution Width 15.8 % Platelet Count 205 TH/MM3 Mean Platelet Volume 7.1 FL Neutrophils (%) (Auto) 56.7 % Lymphocytes (%) (Auto) 30.7 % Monocytes (%) (Auto) 7.7 % Eosinophils (%) (Auto) 3.5 % Basophils (%) (Auto) 1.4 % Neutrophils # (Auto) 4.4 TH/MM3 Lymphocytes # (Auto) 2.4 TH/MM3 Monocytes # (Auto) 0.6 TH/MM3 Eosinophils # (Auto) 0.3 TH/MM3 Basophils # (Auto) 0.1 TH/MM3 CBC Comment DIFF FINAL Differential Comment Prothrombin Time 10.2 SEC Prothromb Time International Ratio 1.0 RATIO Activated Partial Thromboplast Time 24.9 SEC Blood Urea Nitrogen 31 MG/DL Creatinine 1.44 MG/DL Random Glucose 122 MG/DL Calcium Level 8.5 MG/DL Magnesium Level 1.8 MG/DL Sodium Level 136 MEQ/L Potassium Level 3.8 MEQ/L Chloride Level 101 MEQ/L Carbon Dioxide Level 25.7 MEQ/L Anion Gap 9 MEQ/L Estimat Glomerular Filtration Rate 40 ML/MIN Total Creatine Kinase 50 U/L Troponin I LESS THAN 0.02 NG/ML Lab work is without acute concern. [employer] interrogation reveals no activity from the AICD. Results are discussed with the patient. I discussed the patient my attending physician and the patient will be discharged home at this time to follow-up with her crack off person. She agrees to return immediately with any acute worsening of symptoms. Diagnosis Primary Impression: Painful paresthesia Referrals: [employer]aming [employer] Operator Primary Care Physician Patient Instructions: General Instructions, Paresthesia (ED) Additional Instructions: FOLLOW UP WITH YOUR BOAT CREW DECK HAND RETURN TO ED WITH ACUTE WORSENING OF SYMPTOMS Med/Other Pt SpecificInfo: No Change to Meds Disposition: 01 DISCHARGE HOME Condition: Stable Lily Diehl MAYELA Oct 15, 2017 18:38
[2017-10-15] MEDS ORDERED: SODIUM CHLORIDE 0.9% FLUSH 10 ML FLUSH IVF PRN (18:45)
[2017-10-15] MEDS ORDERED: SODIUM CHLORID 0.9% 500 ML INJ 500 ML IV ONE (18:45)
[2017-10-15 18:51] VITALS: O2SAT 100
[2017-10-15 19:19] LABS: AUTOMATED NEUTROPHIL # 4.4 TH/MM3 (1.8-7.7); BASOPHIL # 0.1 TH/MM3 (0-0.2); BASOPHIL % 1.4 % (0.0-2.0); EOSINOPHIL # 0.3 TH/MM3 (0-0.4); EOSINOPHIL % 3.5 % (0.0-4.0); HEMATOCRIT 27.8 % (35.0-46.0); HEMO FLAGS DIFF FINAL; LYMPH % 30.7 % (9.0-44.0); LYMPHOCYTE # 2.4 TH/MM3 (1.0-4.8); MEAN CELL VOLUME 81.3 FL (80.0-100.0); MONO % 7.7 % (0.0-8.0); NEUT % 56.7 % (16.0-70.0); PLATELET COUNT 205 TH/MM3 (150-450); RED BLOOD COUNT 3.42 MIL/MM3 (4.00-5.30); RED CELL DISTRIBUTION WIDTH 15.8 % (11.6-17.2); WHITE BLOOD COUNT 7.7 TH/MM3 (4.0-11.0)
[2017-10-15 19:29] LABS: APTT (PATIENT) 24.9 SEC (24.3-30.1); PROTHROMBIN TIME - PATIENT 10.2 SEC (9.8-11.6)
--- NOTE | 2017-10-15 19:33 | RADRPT ---
EXAM DATE/TIME: 10/15/2017 19:03 [facility] COMPARISON: CHEST SINGLE AP, October 03, 2017, 14:47. INDICATIONS : Implanted defibrillator turned under the skin and pushed back by the patient. MEDICAL HISTORY : Lupus. Gastroesophageal reflux disease. Gastroparesis. Carcinoma uterine SURGICAL HISTORY : Appendectomy. Hysterectomy. Defibrillator [id number] ENCOUNTER: Initial ACUITY: 1 day PAIN SCORE: 3/10 LOCATION: Left chest FINDINGS: There is a right-sided [id number] in place. There is a pacing device seen over the left chest. The heart size is normal. The lungs are clear. CONCLUSION: No acute abnormality seen. Brian Loyd MD on October 15, 2017 at 19:31 Board Certified Radiologist. This report was verified electronically.
[2017-10-15 19:52] LABS: ANION GAP 9 MEQ/L (5-15); BICARBONATE 25.7 MEQ/L (21.0-32.0); BLOOD UREA NITROGEN 31 MG/DL (7-18); CHLORIDE 101 MEQ/L (98-107); GLOMERULAR FILTRATION RATE 40 ML/MIN (>89); MAGNESIUM 1.8 MG/DL (1.5-2.5); POTASSIUM 3.8 MEQ/L (3.5-5.1); SODIUM (NA) 136 MEQ/L (136-145)
--- NOTE | 2017-10-15 19:57 | PD ---
Physical Exam Date Seen by Provider: Oct 15, 2017 Time Seen by Provider: 19:55 Narrative This patient presents concerned that her AICD is firing. She is complaining of some mild electrical-like sensations. Her AICD was just implanted about 10 days ago. Data Data Last Documented VS Vital Signs Date Time Temp Pulse Resp B/P (MAP) Pulse Ox O2 Delivery O2 Flow Rate FiO2 10/15/17 18:51 100 Room Air 10/15/17 18:22 90 18 Orders Orders Electrocardiogram (10/15/17 ) Basic Metabolic Panel (Bmp) (10/15/17 18:42) Ckmb (Isoenzyme) Profile (10/15/17 18:42) Complete Blood Count With Diff (10/15/17 18:42) Magnesium (Mg) (10/15/17 18:42) Prothrombin Time / Inr (Pt) (10/15/17 18:42) Act Partial Throm Time (Ptt) (10/15/17 18:42) Troponin I (10/15/17 18:42) Chest, Single Ap (10/15/17 18:42) Ecg Monitoring (10/15/17 18:42) Bilateral Bp Monitoring (10/15/17 18:42) Iv Access Insert/Monitor (10/15/17 18:42) Oximetry (10/15/17 18:42) Oxygen Administration (10/15/17 18:42) Sodium Chloride 0.9% Flush (Ns Flush) (10/15/17 18:45) Sodium Chlorid 0.9% 500 Ml Inj (Ns 500 M (10/15/17 18:45) Labs Laboratory Tests Test 10/15/17 18:45 White Blood Count 7.7 TH/MM3 Red Blood Count 3.42 MIL/MM3 Hemoglobin 8.9 GM/DL Hematocrit 27.8 % Mean Corpuscular Volume 81.3 FL Mean Corpuscular Hemoglobin 26.0 PG Mean Corpuscular Hemoglobin Concent 32.0 % Red Cell Distribution Width 15.8 % Platelet Count 205 TH/MM3 Mean Platelet Volume 7.1 FL Neutrophils (%) (Auto) 56.7 % Lymphocytes (%) (Auto) 30.7 % Monocytes (%) (Auto) 7.7 % Eosinophils (%) (Auto) 3.5 % Basophils (%) (Auto) 1.4 % Neutrophils # (Auto) 4.4 TH/MM3 Lymphocytes # (Auto) 2.4 TH/MM3 Monocytes # (Auto) 0.6 TH/MM3 Eosinophils # (Auto) 0.3 TH/MM3 Basophils # (Auto) 0.1 TH/MM3 CBC Comment DIFF FINAL Differential Comment Prothrombin Time 10.2 SEC Prothromb Time International Ratio 1.0 RATIO Activated Partial Thromboplast Time 24.9 SEC Blood Urea Nitrogen 31 MG/DL Creatinine 1.44 MG/DL Random Glucose 122 MG/DL Calcium Level 8.5 MG/DL Magnesium Level 1.8 MG/DL Sodium Level 136 MEQ/L Potassium Level 3.8 MEQ/L Chloride Level 101 MEQ/L Carbon Dioxide Level 25.7 MEQ/L Anion Gap 9 MEQ/L Estimat Glomerular Filtration Rate 40 ML/MIN MDM Supervised Visit with ARY: Yes Narrative Course I, Dr. Olivera, have reviewed the advance practice practitioner's documentation and am in agreement, met with the patient face to face, made the diagnosis, and the medical decision making was done by me. *My assessment and Findings: Patient is awake and alert and in no acute distress. Her EKG shows a sinus rhythm. Her AICD has been interrogated. There have been no firings. Please see Lily Diehl NP's note for results of laboratory and radiographic evaluation, ED course, final diagnosis and disposition Vaishnavi Olivera MD Oct 15, 2017 19:57
[2017-10-15 19:59] LABS: CREATINE KINASE 50 U/L (26-192)
[2017-10-15] MEDS ORDERED: SODIUM CHLOR 0.9% 1000 ML INJ 1,000 ML IV ONE (20:00)
--- NOTE | 2017-10-16 19:56 | EKG ---
Date Performed: 10/15/2017 Time Performed: 18:27:48 PTAGE: 42 years EKG: Sinus rhythm WITH FIRST DEGREE AV BLOCK INTRAVENTRICULAR CONDUCTION DELAY ABNORMAL ECG INTERPRETATION BASED ON A DEFAULT AGE OF 41 YEARS PREVIOUS TRACING : 10/04/2017 05.36 SINCE PRIOR TRACING QR INTERVAL IS LONGER. GIVEN THE THE PATIENT RELATIVELY YOUNG AGE Clinical correlation is recommended. DOCTOR: Syed Stone Interpretating Date/Time 10/16/2017 19:54:37
== END 2017-10-15 20:50 | disposition home or self-care (01) ==
LOC: NEPE 18:01
DX: R20.2 Paresthesia of skin (principal); R07.9 Chest pain, unspecified; M32.9 Systemic lupus erythematosus, unspecified; F31.9 Bipolar disorder, unspecified; E03.9 Hypothyroidism, unspecified; G40.909 Epilepsy, unspecified, not intractable, without status epilepticus; Z87.19 Personal history of other diseases of the digestive system
CPT/HCPCS: 71010; 80048; 82550; 83735; 84484; 85025; 85610; 85730; 93005; 96360; 99285; J1642; J7030; J7040

== ENCOUNTER 2017-10-23 20:29 | Observation (INO) | payer OTHER ==
[~2017-10-23] VITALS: Ht 175.3 cm; Wt 65.9 kg
[2017-10-23 20:32] VITALS: BP 132/64; PULSE 85; RESP 18; TEMP 98.5; O2SAT 100
[2017-10-23 22:29] LABS: AUTOMATED NEUTROPHIL # 5.6 TH/MM3 (1.8-7.7); BASOPHIL # 0.1 TH/MM3 (0-0.2); EOSINOPHIL # 0.1 TH/MM3 (0-0.4); EOSINOPHIL % 1.2 % (0.0-4.0); HEMATOCRIT 28.1 % (35.0-46.0); HEMOGLOBIN 8.9 GM/DL (11.6-15.3); LYMPH % 13.3 % (9.0-44.0); MEAN CELL VOLUME 80.1 FL (80.0-100.0); MEAN CORPUSCULAR HEMOGLOBIN 25.3 PG (27.0-34.0); MEAN CORPUSCULAR HGB CONC 31.6 % (32.0-36.0); MEAN PLATELET VOLUME 7.7 FL (7.0-11.0); MONO % 7.9 % (0.0-8.0); MONOCYTE # 0.6 TH/MM3 (0-0.9); NEUT % 76.6 % (16.0-70.0); PLATELET COUNT 195 TH/MM3 (150-450); RED BLOOD COUNT 3.51 MIL/MM3 (4.00-5.30); RED CELL DISTRIBUTION WIDTH 16.4 % (11.6-17.2); WHITE BLOOD COUNT 7.3 TH/MM3 (4.0-11.0)
[2017-10-23] MEDS ORDERED: DIAZEPAM 10 MG TAB PO ONE (22:30)
[2017-10-23] MEDS ORDERED: ONDANSETRON HCL 4 MG/2 ML VIAL IV PUSH ONE (22:30)
[2017-10-23] MEDS ORDERED: SODIUM CHLORID 0.9% 500 ML INJ 500 ML IV ONE (22:30)
[2017-10-23] MEDS ORDERED: HYDROmorphone HCL PF 2 MG/ML VIAL IVS ONE (22:30)
[2017-10-23 22:42] LABS: INTERNATIONAL NORMALIZED RATIO 1.1 RATIO; PROTHROMBIN TIME - PATIENT 10.7 SEC (9.8-11.6)
[2017-10-23 22:47] VITALS: BP 120/69; PULSE 73; RESP 19; O2SAT 98
[2017-10-23] MEDS: SODIUM CHLOR 0.9% 1000 ML INJ 1,000 ML IV SCH (22:48)
[2017-10-23 22:49] LABS: ALBUMIN 3.6 GM/DL (3.4-5.0); AST (GOT) 16 U/L (15-37); BICARBONATE 27.2 MEQ/L (21.0-32.0); BLOOD UREA NITROGEN 23 MG/DL (7-18); CALCIUM 8.7 MG/DL (8.5-10.1); CHLORIDE 103 MEQ/L (98-107); CREATININE 1.55 MG/DL (0.50-1.00); GLOMERULAR FILTRATION RATE 37 ML/MIN (>89); GLUCOSE,RANDOM 102 MG/DL (74-106); LIPASE 58 U/L (73-393); SODIUM (NA) 137 MEQ/L (136-145)
[2017-10-23 22:50] LABS: ALT (GPT) 15 U/L (10-53)
[2017-10-23 22:52] LABS: ALKALINE PHOSPHATASE 58 U/L (45-117); TOTAL BILIRUBIN ADULT 0.2 MG/DL (0.2-1.0)
[2017-10-23 23:00] LABS: BACTERIA, URINE RARE /hpf; BILIRUBIN, URINE NEG (NEG); BLOOD, URINE NEG (NEG); GLUCOSE,URINE NEG (NEG); KETONE, URINE NEG (NEG); MUCUS URINE FEW /lpf (OCC); NITRITE,URINE NEG (NEG); RENAL EPITHELIAL CELLS <1 /hpf; SQUAMOUS EPITHELIAL CELL URINE 8 /hpf (0-5); URINE COLOR LIGHT-YELLOW (YELLW/STRAW); URINE LEUKOCYTE ESTERASE NEG (NEG); WAXY CAST, URINE 13 /lpf
[2017-10-24] VITALS (7 sets, daily range): BP systolic 90–116; BP diastolic 49–71; PULSE 64–79; RESP 16–20; TEMP 97.4–98.7; O2SAT 97–100
[2017-10-24] MEDS ORDERED: HYDROmorphone HCL PF 2 MG/ML VIAL IVS ONE (00:30)
[2017-10-24] MEDS ORDERED: SODIUM CHLOR 0.9% 1000 ML INJ 1,000 ML IV ONE (00:30)
[2017-10-24] MEDS ORDERED: ACETAMINOPHEN 325 MG TAB PO PRN (01:15)
[2017-10-24] MEDS ORDERED: SODIUM CHLORIDE 0.9% FLUSH 10 ML FLUSH IV FLUSH PRN (01:15)
[2017-10-24] MEDS ORDERED: SENNOSIDES 8.6 MG TAB PO PRN (01:15)
[2017-10-24] MEDS ORDERED: LACTULOSE SYRUP 20 GM/30 ML CUP PO PRN (01:15)
[2017-10-24] MEDS ORDERED: NALOXONE HCL 0.4 MG/ML AMP IV PUSH PRN (01:15)
[2017-10-24] MEDS ORDERED: MAGNESIUM HYDROXIDE SUSP 30 ML CUP PO PRN (01:15)
[2017-10-24] MEDS ORDERED: BISACODYL 10 MG SUPP RECTAL PRN (01:15)
--- NOTE | 2017-10-24 01:15 | PD ---
HPI Chief Complaint: Abdominal Pain Time Seen by Provider: 21:23 Travel History International Travel<30 days: No Contact w/Intl Traveler<30days: No Traveled to known affect area: No History of Present Illness HPI This is a 42-year-old female with a history of SLE, renal sufficiency, gastroparesis, presents today with complaints of severe abdominal pain with associated nausea and vomiting. Patient also reports back pain. She denies any fevers, chills. She denies any dysuria, urgency, frequency. The patient does report that she's been constipated and last had a bowel movement 4 days ago. She states she normally has them every 2 days. She is concerned that her elect lites may be abnormal. The patient recently 10 days ago had a pacemaker placed for Brugada syndrome. PFSH Past Medical History Arthritis: No Asthma: No Atrial Fibrillation: No Autoimmune Disease: Yes (LUPUS ) Blood Disorders: No Bipolar Disorder: Yes Anxiety: Yes Depression: No Heart Rhythm Problems: No Cancer: Yes (APPENDIX 2002) Cardiac Catheterization: No Cardiovascular Problems: Yes (pacemaker, brugada syndrome, HTN) High Cholesterol: No Chemotherapy: No Chest Pain: No Congestive Heart Failure: No COPD: No Cerebrovascular Accident: No Diabetes: No Diminished Hearing: No Endocrine: No Gastrointestinal Disorders: Yes (GASTROPARESIS, esophagitis) GERD: Yes Genitourinary: Yes (RECURRENT UTI'S, NEPHRITIS, kidney disease) Headaches: Yes Hiatal Hernia: No Heparin Induced Thrombocytopen: No Hypertension: No Immune Disorder: Yes (CROHN'S, SLE) Implanted Vascular Access Dvce: Yes (RIGHT SUBCLAVIAN PORT VAD) Kidney Stones: Yes Musculoskeletal: No Neurologic: Yes (EPILEPSY) Psychiatric: No Reproductive: No Respiratory: No Immunizations Current: Yes Migraines: Yes Myocardial Infarction: No Pneumonia: Yes Radiation Therapy: No Renal Failure: No Seizures: Yes (juvenile epilepsy) Sickle Cell Disease: No Sleep Apnea: No Thyroid Disease: Yes (HYPOTHYROIDISM) Ulcer: Yes (Pt states she has severe ulcers from throat to rectum) PNEUMOCCOCAL Vaccine (Year): 3 ?: Not : 2 Para: 1 Miscarriage: 1 : 0 Ectopic : Yes (AT 17 YEARS OF AGE) Ovarian Cysts: Yes Past Surgical History Abdominal Surgery: Yes (multiple Laps) AICD: Yes (BIOTRONIC) Appendectomy: Yes Arteriovenous Shunt: No Body Medical Devices: RIGHT SUBCLAVIAN PORT VAD Cardiac Surgery: Yes (AICD ) Coronary Artery Bypass Graft: No Ear Surgery: No Endocrine Surgery: Yes Eye Surgery: No Genitourinary Surgery: Yes (Interstitial cystitis) Gynecologic Surgery: Yes Hysterectomy: Yes Insulin Pump: No Joint Replacement: No Neurologic Surgery: No Oral Surgery: Yes (Removal of abscess) Pacemaker: No Thoracic Surgery: No Other Surgery: Yes (OVARIAN CYST) Social History Alcohol Use: No (PT DENIES ) Tobacco Use: No Substance Use: No Allergies-Medications (Allergen,Severity, Reaction): Coded Allergies: Fish Containing Products (Unverified Allergy, Severe, SWELLING IN THROAT, SOB, 10/01/17) cephalexin (Unverified Allergy, Severe, RASH,SWELLING, 10/01/17) ketorolac (Unverified Allergy, Severe, RASH, 10/01/17) penicillin G (Unverified Allergy, Severe, RASH,SWELLING, 10/01/17) prochlorperazine (Unverified Allergy, Mild, DYSTONIC REACTION, 10/01/17) promethazine (Unverified Allergy, Mild, DYSTONIC REACTION, 10/01/17) gabapentin (Unverified Adverse Reaction, Severe, SEIZURES, 10/01/17) Reported Meds & Prescriptions Reported Meds & Active Scripts Active Valium (Diazepam) 10 Mg Tab 10 Mg PO TID PRN Levothyroxine (Levothyroxine Sodium) 125 Mcg Tab 125 Mcg PO DAILY Prednisone 20 Mg Tab 40 Mg PO DAILY Take 40mg (2 tabs) daily x7 days, then 20mg (1 tab) daily x7 days, then 10mg (1/2 tab) daily x7days, then stop. Potassium Chloride ER (Potassium Chloride) 20 Meq Tab 40 Meq PO TID Ferrous Sulfate 325 Mg (65 Mg Iron) Tablet 325 Mg PO BIDPC Pantoprazole (Pantoprazole Sodium) 40 Mg Tab 40 Mg PO HS Vitamin D3 (Cholecalciferol) 10,000 Unit Cap 20,000 Units PO Q3D @ HS Reported Spironolactone 25 Mg Tab 25 Mg PO DAILY Ms Contin (Morphine Sulfate) 15 Mg Tab 30 Mg PO Q8H Magnesium Oxide 400 Mg Tab 400 Mg PO DAILY Review of Systems Except as stated in HPI: all other systems reviewed are Neg General / Constitutional: No: Fever, Chills HENT: No: Headaches, Lightheadedness Cardiovascular: No: Chest Pain or Discomfort, Palpitations Respiratory: No: Cough, Shortness of Breath Gastrointestinal: Positive: Nausea, Vomiting, Abdominal Pain, Constipation, Changes in Bowel Habits, Loss of Appetite Genitourinary: No: Frequency, Dysuria Musculoskeletal: No: Weakness, Pain (low back bilaterally) Neurologic: No: Weakness, Dizziness, Ataxia, Headache Physical Exam Narrative GENERAL: Well-nourished, well-developed patient, in no acute respiratory distress. The patient was crying when I did the room. She reported severe pain.. SKIN: Focused skin assessment warm/dry. HEAD: Normocephalic/atraumatic. EYES: No scleral icterus. No injection or drainage. NECK: Supple, trachea midline. CARDIOVASCULAR: Regular rate and rhythm without murmurs, gallops, or rubs. RESPIRATORY: Breath sounds equal bilaterally. No accessory muscle use. GASTROINTESTINAL: Abdomen soft, nondistended. She had subjective crampy discomfort throughout. There is no rebound or guarding. MUSCULOSKELETAL: No cyanosis, or edema. BACK: Objective tenderness in the bilateral flank. No true CVA discomfort. NEUROLOGICAL: Awake and alert. Cranial nerves II through XII intact. Motor grossly within normal limits. Five out of 5 muscle strength in all muscle groups. Normal speech. Data Data Last Documented VS Vital Signs Date Time Temp Pulse Resp B/P (MAP) Pulse Ox O2 Delivery O2 Flow Rate FiO2 10/24/17 00:00 72 18 96/49 (65) 100 Room Air 10/23/17 20:32 98.5 Orders Orders Complete Blood Count With Diff (10/23/17 20:39) Comprehensive Metabolic Panel (10/23/17 20:39) Lipase (10/23/17 20:39) Prothrombin Time / Inr (Pt) (10/23/17 20:39) Act Partial Throm Time (Ptt) (10/23/17 20:39) Urinalysis - C+S If Indicated (10/23/17 20:39) Electrocardiogram (10/23/17 20:39) Ondansetron Inj (Zofran Inj) (10/23/17 22:30) Sodium Chlorid 0.9% 500 Ml Inj (Ns 500 M (10/23/17 22:30) Sodium Chlor 0.9% 1000 Ml Inj (Ns 1000 M (10/23/17 22:30) Hydromorphone Pf Inj (Dilaudid Pf Inj) (10/23/17 22:30) Diazepam (Valium) (10/23/17 22:30) Hydromorphone Pf Inj (Dilaudid Pf Inj) (10/24/17 00:30) Sodium Chlor 0.9% 1000 Ml Inj (Ns 1000 M (10/24/17 00:30) Labs Laboratory Tests Test 10/23/17 22:05 10/23/17 22:49 White Blood Count 7.3 TH/MM3 Red Blood Count 3.51 MIL/MM3 Hemoglobin 8.9 GM/DL Hematocrit 28.1 % Mean Corpuscular Volume 80.1 FL Mean Corpuscular Hemoglobin 25.3 PG Mean Corpuscular Hemoglobin Concent 31.6 % Red Cell Distribution Width 16.4 % Platelet Count 195 TH/MM3 Mean Platelet Volume 7.7 FL Neutrophils (%) (Auto) 76.6 % Lymphocytes (%) (Auto) 13.3 % Monocytes (%) (Auto) 7.9 % Eosinophils (%) (Auto) 1.2 % Basophils (%) (Auto) 1.0 % Neutrophils # (Auto) 5.6 TH/MM3 Lymphocytes # (Auto) 1.0 TH/MM3 Monocytes # (Auto) 0.6 TH/MM3 Eosinophils # (Auto) 0.1 TH/MM3 Basophils # (Auto) 0.1 TH/MM3 CBC Comment DIFF FINAL Differential Comment Prothrombin Time 10.7 SEC Prothromb Time International Ratio 1.1 RATIO Activated Partial Thromboplast Time 25.7 SEC Blood Urea Nitrogen 23 MG/DL Creatinine 1.55 MG/DL Random Glucose 102 MG/DL Total Protein 7.0 GM/DL Albumin 3.6 GM/DL Calcium Level 8.7 MG/DL Alkaline Phosphatase 58 U/L Aspartate Amino Transf (AST/SGOT) 16 U/L Alanine Aminotransferase (ALT/SGPT) 15 U/L Total Bilirubin 0.2 MG/DL Sodium Level 137 MEQ/L Potassium Level 4.5 MEQ/L Chloride Level 103 MEQ/L Carbon Dioxide Level 27.2 MEQ/L Anion Gap 7 MEQ/L Estimat Glomerular Filtration Rate 37 ML/MIN Lipase 58 U/L Urine Color LIGHT-YELLOW Urine Turbidity HAZY Urine pH 6.0 Urine Specific [place] 1.014 Urine Protein TRACE mg/dL Urine Glucose (UA) NEG mg/dL Urine Ketones NEG mg/dL Urine Occult Blood NEG Urine Nitrite NEG Urine Bilirubin NEG Urine Urobilinogen LESS THAN 2.0 MG/DL Urine Leukocyte Esterase NEG Urine RBC 1 /hpf Urine WBC 2 /hpf Urine Squamous Epithelial Cells 8 /hpf Urine Renal Epithelial Cells <1 /hpf Urine Bacteria RARE /hpf Urine Waxy Casts 13 /lpf Urine Mucus FEW /lpf Microscopic Urinalysis Comment CULT NOT INDICATED MDM Medical Decision Making Medical Screen Exam Complete: Yes Emergency Medical Condition: Yes Differential Diagnosis Gastroparesis versus optic ulcer disease versus lupus flare Narrative Course 22-year-old female unfortunate history of lupus, Crohn's disease, presents here with abdominal pain and back pain. The patient's received 2 doses of IVD pain medication. The patient still complaining of severe pain. The patient is nontoxic, examination. I do not believe that she has a surgical belly. Given the fact that she's received 2 doses of IVD pain medicine and is still complaining of current pain, she'll be admitted under observation for pain control. Case was discussed with Dr. Atwood, [facility] hospitalist, who will admit the patient under the [facility] service. Diagnosis Primary Impression: Intractable abdominal pain Additional Impressions: Lupus (systemic lupus erythematosus) Chronic kidney disease S/P ICD (internal cardiac defibrillator) procedure Jhon Gan MD Oct 24, 2017 01:14
[2017-10-24] MEDS: SODIUM CHLOR 0.9% 1000 ML INJ 1,000 ML IV SCH ×3 (02:04→21:58)
[2017-10-24] MEDS: MORPHINE SULFATE 15 MG CONTROLLED RELEASE TAB PO SCH ×3 (02:07→17:26)
[2017-10-24 05:47] LABS: AUTOMATED NEUTROPHIL # 5.3 TH/MM3 (1.8-7.7); BASOPHIL # 0.1 TH/MM3 (0-0.2); BASOPHIL % 0.7 % (0.0-2.0); EOSINOPHIL % 0.6 % (0.0-4.0); HEMOGLOBIN 7.8 GM/DL (11.6-15.3); LYMPH % 21.4 % (9.0-44.0); LYMPHOCYTE # 1.6 TH/MM3 (1.0-4.8); MEAN CELL VOLUME 80.5 FL (80.0-100.0); MEAN CORPUSCULAR HEMOGLOBIN 25.2 PG (27.0-34.0); MEAN CORPUSCULAR HGB CONC 31.3 % (32.0-36.0); MEAN PLATELET VOLUME 7.7 FL (7.0-11.0); MONO % 8.6 % (0.0-8.0); MONOCYTE # 0.7 TH/MM3 (0-0.9); NEUT % 68.7 % (16.0-70.0); PLATELET COUNT 133 TH/MM3 (150-450); RED CELL DISTRIBUTION WIDTH 16.2 % (11.6-17.2); WHITE BLOOD COUNT 7.7 TH/MM3 (4.0-11.0)
[2017-10-24 06:11] LABS: CALCIUM 7.6 MG/DL (8.5-10.1); CREATININE 1.62 MG/DL (0.50-1.00)
[2017-10-24] MEDS: LEVOTHYROXINE SODIUM 125 MCG TAB PO SCH (06:27)
[2017-10-24] MEDS: SODIUM CHLORIDE 0.9% FLUSH 10 ML FLUSH IV FLUSH SCH ×2 (09:00→21:00)
[2017-10-24] MEDS: FERROUS SULFATE 325 MG (65 MG ELEMENTAL IRON) TAB PO SCH ×2 (09:19→18:18)
[2017-10-24] MEDS: DOCUSATE SODIUM 50 MG/SENNA 8.6 MG TAB PO SCH ×2 (09:19→21:48)
[2017-10-24] MEDS: MAGNESIUM OXIDE 400 MG TAB PO SCH (09:20)
[2017-10-24] MEDS: POTASSIUM CHLORIDE 20 MEQ CONTROLLED RELEASE TAB PO SCH ×3 (09:20→18:18)
[2017-10-24] MEDS: DIAZEPAM 10 MG TAB PO PRN ×2 (09:20→18:22)
[2017-10-24] MEDS: SPIRONOLACTONE 25 MG TAB PO SCH (09:21)
[2017-10-24] MEDS: HEPARIN SODIUM - SQ 10,000 UNITS/ML VIAL SQ SCH ×2 (09:24→21:48)
--- NOTE | 2017-10-24 09:48 | HHI.HP ---
[facility] [place] Physician Neeraj Gilbert D.O. Admission Diagnosis intractable pain, lupus, renal insufficiency, Diagnoses: Chief Complaint: Abdominal pain Travel History International Travel<30 Days: No Contact w/Intl Traveler <30 Da: No Traveled to Known Affected Are: No History of Present Illness This is a 42-year-old female history of lupus, Crohn's disease, renal insufficiency, Brugada status post AICD placement, history of gastroparesis, chronic pain, anxiety disorder who presented with bilateral lower back pain and abdominal pain. Patient stated that her back pain started 3 days ago in which it radiated to her groin and lower abdomen area. Pain described as constant, 10 out of 10, nothing makes it better or worse. Patient stated this is different from her chronic pain. She said that her chronic pain is more generalized. She had episode of emesis 2 days ago that was described as green. No recent episodes of emesis. She has been constipated about 2 days ago. Denies any fevers or chills. All other review of system reviewed and negative. Past Family Social History Past Medical History Lupus, Anxiety, Depression, Bipolar Disorder, Chronic Hypokalemia, Adrenal Insufficiency, Recurrent SHABANA, Crohn's Disease, Chronic Pain, Seizure Disorder and Gastroparesis, Brugada Past Surgical History Appendectomy, Right Subclavian Port, Partial Hysterectomy, Dental Extraction Reported Medications Reported Meds & Active Scripts Active Valium (Diazepam) 10 Mg Tab 10 Mg PO TID PRN Levothyroxine (Levothyroxine Sodium) 125 Mcg Tab 125 Mcg PO DAILY Prednisone 20 Mg Tab 40 Mg PO DAILY Take 40mg (2 tabs) daily x7 days, then 20mg (1 tab) daily x7 days, then 10mg (1/2 tab) daily x7days, then stop. Potassium Chloride ER (Potassium Chloride) 20 Meq Tab 40 Meq PO TID Ferrous Sulfate 325 Mg (65 Mg Iron) Tablet 325 Mg PO BIDPC Pantoprazole (Pantoprazole Sodium) 40 Mg Tab 40 Mg PO HS Vitamin D3 (Cholecalciferol) 10,000 Unit Cap 20,000 Units PO Q3D @ HS Reported Spironolactone 25 Mg Tab 25 Mg PO DAILY Ms Contin (Morphine Sulfate) 15 Mg Tab 30 Mg PO Q8H Magnesium Oxide 400 Mg Tab 400 Mg PO DAILY Allergies: Coded Allergies: Fish Containing Products (Unverified Allergy, Severe, SWELLING IN THROAT, SOB, 10/01/17) cephalexin (Unverified Allergy, Severe, RASH,SWELLING, 10/01/17) ketorolac (Unverified Allergy, Severe, RASH, 10/01/17) penicillin G (Unverified Allergy, Severe, RASH,SWELLING, 10/01/17) prochlorperazine (Unverified Allergy, Mild, DYSTONIC REACTION, 10/01/17) promethazine (Unverified Allergy, Mild, DYSTONIC REACTION, 10/01/17) gabapentin (Unverified Adverse Reaction, Severe, SEIZURES, 10/01/17) Active Ordered Medications Current Medications Ondansetron HCl (Zofran Inj) 4 mg ONCE ONCE IV PUSH Last administered on 10/23 22:49; Start 10/23/17 at 22:30; Stop 10/23/17 at 22:31; Status DC Sodium Chloride 500 ml @ 500 mls/hr BOLUS ONCE IV Last administered on 22:48; Start 10/23/17 at 22:30; Stop 10/23/17 at 23:29; Status DC Sodium Chloride 1,000 ml @ 125 mls/hr Q8H IV Last administered on 10/24/17 02:04; Start 10/23/17 at 22:30 Hydromorphone HCl (Dilaudid Pf Inj) 1 mg ONCE ONCE IVS Last administered on 22:49; Start 10/23/17 at 22:30; Stop 10/23/17 at 22:31; Status DC Diazepam (Valium) 10 mg ONCE ONCE PO Last administered on 10/23/17 22:50; Start 10/23/17 at 22:30; Stop 10/23/17 at 22:31; Status DC Hydromorphone HCl (Dilaudid Pf Inj) 1 mg ONCE ONCE IVS Last administered on 00:39; Start 10/24/17 at 00:30; Stop 10/24/17 at 00:31; Status DC Sodium Chloride 1,000 ml @ 999 mls/hr BOLUS ONCE IV Last administered on 00:38; Start 10/24/17 at 00:30; Stop 10/24/17 at 01:30; Status DC Sodium Chloride (NS Flush) 2 ml UNSCH PRN IV FLUSH FLUSH AFTER USING IV ACCESS Last administered on 10/24/17 02:03; Start 10/24/17 at 01:15 Sodium Chloride (NS Flush) 2 ml BID IV FLUSH ; Start 10/24/17 at 09:00 Acetaminophen (Tylenol) 650 mg Q4H PRN PO TEMP > 100.4; Start 10/24/17 at 01: 15 Ondansetron HCl (Zofran Inj) 4 mg Q6H PRN IVP NAUSEA OR VOMITING; Start at 01:15 Heparin Sodium (Porcine) (Heparin Inj) 5,000 units Q12H SQ Last administered on 10/24/17 09:24; Start 10/24/17 at 09:00 Naloxone HCl (Narcan Inj) 0.4 mg UNSCH PRN IV PUSH SEE LABEL COMMENTS; Start 10/24/17 at 01:15 Senna/Docusate Sodium (Irais-Colace) 1 tab BID PO Last administered on 09:19; Start 10/24/17 at 09:00 Magnesium Hydroxide (Milk Of Magnesia Liq) 30 ml Q12H PRN PO Mild constipation ; Start 10/24/17 at 01:15 Sennosides (Senokot) 17.2 mg Q12H PRN PO Moderate constipation; Start at 01:15 Bisacodyl (Dulcolax Supp) 10 mg DAILY PRN RECTAL SEVERE CONSITIPATION; Start 10/24/17 at 01:15 Lactulose (Lactulose Liq) 30 ml DAILY PRN PO SEVERE CONSITIPATION; Start 10/24 at 01:15 Diazepam (Valium) 10 mg TID PRN PO muscle spasm Last administered on 09:20; Start 10/24/17 at 01:30 Ferrous Sulfate (Ferrous Sulfate) 325 mg BIDPC PO Last administered on 09:19; Start 10/24/17 at 09:00 Levothyroxine Sodium (Synthroid) 125 mcg DAILY@0600 PO Last administered on 06:27; Start 10/24/17 at 06:00 Magnesium Oxide (Mag-Ox) 400 mg DAILY PO Last administered on 10/24/17 09:20 ; Start 10/24/17 at 09:00 Morphine Sulfate (Oramorph Sr) 30 mg Q8H PO Last administered on 10/24/17 09: 21; Start 10/24/17 at 02:00 Pantoprazole Sodium (Protonix) 40 mg HS PO ; Start 10/24/17 at 21:00 Potassium Chloride (KCl) 40 meq TID PO Last administered on 10/24/17 09:20; Start 10/24/17 at 09:00 Spironolactone (Aldactone) 25 mg DAILY PO Last administered on 10/24/17 09:21 ; Start 10/24/17 at 09:00 Family History Reviewed past family history patient denied any. Social History Negative for alcohol, tobacco or drugs. Physical Exam Vital Signs Vital Signs Date Time Temp Pulse Resp B/P (MAP) Pulse Ox O2 Delivery O2 Flow Rate FiO2 10/24/17 07:18 98.3 64 20 101/53 (69) 99 10/24/17 03:05 98.7 73 18 115/59 (77) 97 10/24/17 01:40 10/24/17 01:34 74 19 98/54 (69) 98 Room Air 10/24/17 00:00 72 18 96/49 (65) 100 Room Air 10/23/17 22:47 73 19 120/69 (86) 98 Room Air 10/23/17 20:32 98.5 85 18 132/64 (86) 100 Room Air Physical Exam GENERAL: This is a well-nourished, well-developed patient, in no apparent distress. SKIN: No rashes, ecchymoses or lesions. Cool and dry. Port in place in the right side the chest, dry-cleaning and intact. AICD in place. HEAD: Atraumatic. Normocephalic. No temporal or scalp tenderness. EYES: Pupils equal round and reactive. Extraocular motions intact. No scleral icterus. No injection or drainage. ENT: Nose without bleeding, purulent drainage or septal hematoma. Throat without erythema, tonsillar hypertrophy or exudate. Uvula midline. Airway patent. NECK: Trachea midline. No JVD or lymphadenopathy. Supple, nontender, no meningeal signs. CARDIOVASCULAR: Regular rate and rhythm without murmurs, gallops, or rubs. RESPIRATORY: Clear to auscultation. Breath sounds equal bilaterally. No wheezes , rales, or rhonchi. GASTROINTESTINAL: Abdomen soft, non-tender, nondistended. No hepato-splenomegaly , or palpable masses. No guarding. MUSCULOSKELETAL: Lower paraspinal muscle spasms. Mild tenderness to palpation in the lower abdomen. Negative for any peritoneal signs. Normoactive bowel sounds. NEUROLOGICAL: Awake and alert. Cranial nerves II through XII intact. Motor and sensory grossly within normal limits. Five out of 5 muscle strength in all muscle groups. Normal speech. Laboratory Laboratory Tests Test 10/23/17 22:05 10/23/17 22:49 10/24/17 05:35 White Blood Count 7.3 7.7 Red Blood Count 3.51 3.10 Hemoglobin 8.9 7.8 Hematocrit 28.1 25.0 Mean Corpuscular Volume 80.1 80.5 Mean Corpuscular Hemoglobin 25.3 25.2 Mean Corpuscular Hemoglobin Concent 31.6 31.3 Red Cell Distribution Width 16.4 16.2 Platelet Count 195 133 Mean Platelet Volume 7.7 7.7 Neutrophils (%) (Auto) 76.6 68.7 Lymphocytes (%) (Auto) 13.3 21.4 Monocytes (%) (Auto) 7.9 8.6 Eosinophils (%) (Auto) 1.2 0.6 Basophils (%) (Auto) 1.0 0.7 Neutrophils # (Auto) 5.6 5.3 Lymphocytes # (Auto) 1.0 1.6 Monocytes # (Auto) 0.6 0.7 Eosinophils # (Auto) 0.1 0.0 Basophils # (Auto) 0.1 0.1 CBC Comment DIFF FINAL DIFF FINAL Differential Comment Prothrombin Time 10.7 Prothromb Time International Ratio 1.1 Activated Partial Thromboplast Time 25.7 Blood Urea Nitrogen 23 23 Creatinine 1.55 1.62 Random Glucose 102 113 Total Protein 7.0 Albumin 3.6 Calcium Level 8.7 7.6 Alkaline Phosphatase 58 Aspartate Amino Transf (AST/SGOT) 16 Alanine Aminotransferase (ALT/SGPT) 15 Total Bilirubin 0.2 Sodium Level 137 141 Potassium Level 4.5 4.6 Chloride Level 103 110 Carbon Dioxide Level 27.2 25.0 Anion Gap 7 6 Estimat Glomerular Filtration Rate 37 35 Lipase 58 Urine Color LIGHT-YELLOW Urine Turbidity HAZY Urine pH 6.0 Urine Specific [place] 1.014 Urine Protein TRACE Urine Glucose (UA) NEG Urine Ketones NEG Urine Occult Blood NEG Urine Nitrite NEG Urine Bilirubin NEG Urine Urobilinogen LESS THAN 2.0 Urine Leukocyte Esterase NEG Urine RBC 1 Urine WBC 2 Urine Squamous Epithelial Cells 8 Urine Renal Epithelial Cells <1 Urine Bacteria RARE Urine Waxy Casts 13 Urine Mucus FEW Microscopic Urinalysis Comment CULT NOT INDICATED Result Diagram: 10/24/1753410/24/17534 Caprini VTE Risk Assessment Caprini VTE Risk Assessment: Mod/High Risk (score >= 2) Caprini Risk Assessment Model Point Value = 1 Point Value = 2 Point Value = 3 Point Value = 5 Age 41-60 Minor surgery BMI > 25 kg/m2 Swollen legs Varicose veins or History of unexplained or recurrent spontaneous Oral contraceptives or hormone replacement Sepsis (< 1 month) Serious lung disease, including pneumonia (< 1 month) Abnormal pulmonary function Acute myocardial infarction Congestive heart failure (< 1 month) History of inflammatory bowel disease Medical patient at bed rest Age 61-74 Arthroscopic surgery Major open surgery (> 45 min) Laparoscopic surgery (> 45 min) Malignancy Confined to bed (> 72 hours) Immobilizing plaster cast Central venous access Age >= 75 History of VTE Family history of VTE Factor V Leiden Prothrombin [id number] Lupus anticoagulant Anticardiolipin antibodies Elevated serum homocysteine Heparin-induced thrombocytopenia Other congenital or acquired thrombophilia Stroke (< 1 month) Elective arthroplasty Hip, pelvis, or leg fracture Acute spinal cord injury (< 1 month) Prophylaxis Regimen Total Risk Factor Score Risk Level Prophylaxis Regimen 0-1 Low Early ambulation 2 Moderate Order ONE of the following: *Sequential Compression Device (SCD) *Heparin 5000 units SQ BID 3-4 Higher Order ONE of the following medications: *Heparin 5000 units SQ TID *Enoxaparin/Lovenox 40 mg SQ daily (WT < 150 kg, CrCl > 30 mL/min) *Enoxaparin/Lovenox 30 mg SQ daily (WT < 150 kg, CrCl > 10-29 mL/min) *Enoxaparin/Lovenox 30 mg SQ BID (WT < 150 kg, CrCl > 30 mL/min) AND/OR *Sequential Compression Device (SCD) 5 or more Highest Order ONE of the following medications: *Heparin 5000 units SQ TID (Preferred with Epidurals) *Enoxaparin/Lovenox 40 mg SQ daily (WT < 150 kg, CrCl > 30 mL/min) *Enoxaparin/Lovenox 30 mg SQ daily (WT < 150 kg, CrCl > 10-29 mL/min) *Enoxaparin/Lovenox 30 mg SQ BID (WT < 150 kg, CrCl > 30 mL/min) AND *Sequential Compression Device (SCD) Assessment and Plan Assessment and Plan 42 F with extensive medical history who presented with lower back pain and abdominal pain Abdominal pain/lower back pain -Both types of pain seem to be associated with each other. It seems more that her lower back pain is causing her abdominal pain. Patient did have episode of emesis. Imaging obtained in the ED. Lipase 58. -Patient does have renal insufficiency so we will be cautious with using any contrast. Will get KUB and ultrasound abdomen. -Monitor with serial abdominal exams and clinically. -Will give supportive care with IV fluids, anti-emetics and pain medication. Will give muscle relaxant. Anemia -Patient seems to be running at her baseline. Hemoglobin did drop a little today. No signs of active GI bleed. Will monitor serial H&H and clinically. Renal insufficiency -This has been a chronic problem secondary to lupus. 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 Today creatinine mildly increased to 1.55-1.62. -Will give IV fluids. Avoid nephrotoxins. Continue to trend creatinine. Chronic pain syndrome -Resume home medication. Brugada status post AICD/Crohn's/lupus/anxiety -Resume home medication. Discussed Condition With patient Annette Marcelo MD Oct 24, 2017 09:48
--- NOTE | 2017-10-24 11:06 | RADRPT ---
EXAM DATE/TIME: 10/24/2017 10:41 [facility] COMPARISON: ABDOMEN KUB ONLY, March 12, 2017, 4:04. INDICATIONS : Abdomen pain MEDICAL HISTORY : Lupus. Gastroesophageal reflux disease. Gastroparesis. Uterine cancer SURGICAL HISTORY : Appendectomy. Hysterectomy. Defibrillator ENCOUNTER: Subsequent ACUITY: 2 weeks PAIN SCORE: 3/10 LOCATION: Abdomen FINDINGS: Supine view of the abdomen was performed. The abdominal bowel gas pattern is normal. No abnormal ma sses, calcifications, or organomegaly is seen. The osseous structures are unremarkable. CONCLUSION: Normal examination. Moderate stool throughout the colon. Feliz Leung MD on October 24, 2017 at 11:04 Board Certified Radiologist. This report was verified electronically.
[2017-10-24] MEDS: METHOCARBAMOL 500 MG TAB PO SCH ×2 (11:30→18:12)
--- NOTE | 2017-10-24 11:51 | RADRPT ---
EXAM DATE/TIME: 10/24/2017 10:49 [facility] COMPARISON: MRCP W/O CONTRAST, July 30, 2017, 9:39. US ABDOMEN - COMPLETE, July 10, 2015, 9:18. INDICATIONS : Abdominal pain. MEDICAL HISTORY : Hypertension. Hypothyroid. Juvenile epilepsy. Gastroparesis. Nephritis. Kidney disease. Crohn' s lupus. SURGICAL HISTORY : Appendectomy. Pacemaker. Hysterectomy. Multriple laporascopic surgeries. ENCOUNTER: Initial ACUITY: 4-6 days PAIN SCORE: 9/10 LOCATION: Bilateral upper quadrant MEASUREMENTS: LIVER: 14.4 cm length COMMON DUCT: 10 mm RIGHT KIDNEY: 8.8 x 5.4 x 5.7 cm LEFT KIDNEY: 5.9 x 5.0 x 4.4 cm SPLEEN: 12.8 cm length AORTA: 1.8cm maximal FINDINGS: LIVER: Normal echotexture without focal lesion or ductal dilatation. COMMON DUCT: There is dilatation of the common bile duct. No echogenic stone or obstructing lesion observed. GALLBLADDER: The gallbladder is well-distended. There is gallbladder wall thickening and pericholecystic fluid. No stones or sludge observed. PANCREAS: The pancreas is largely obscured by bowel gas. RIGHT KIDNEY: No hydronephrosis, stone or mass. LEFT KIDNEY: No hydronephrosis, stone or mass. SPLEEN: No focal lesion. AORTA: Non aneurysmal. IVC: Within normal limits. CONCLUSION: 1. Dilatation of the common bile duct. This now measures 11 mm in size. There is also prominence to t he bile ducts within the region of the hussein hepatis. This is a new finding from the prior exams. No obstructing stone or lesion observed. 2. Distention of the gallbladder with gallbladder wall thickening and pericholecystic fluid without s tones or sludge. I cannot exclude acalculous cholecystitis. Vic Williamson Jr., MD on October 24, 2017 at 11:29 Board Certified Radiologist. This report was verified electronically.
--- NOTE | 2017-10-24 12:44 | EKG ---
Date Performed: 10/23/2017 Time Performed: 21:57:33 PTAGE: 42 years EKG: Sinus rhythm WITH SINUS ARRHYTHMIA WITH FIRST DEGREE AV BLOCK POSSIBLE LEFT ATRIAL ENLARGEMENT INTRAVENTRICULAR C ONDUCTION DELAY ABNORMAL ECG PREVIOUS TRACING : 10/15/2017 18.27 Since previous tracing, no significant change noted DOCTOR: Sonido Michelle Interpretating Date/Time 10/24/2017 12:44:42
[2017-10-24] MEDS: ONDANSETRON HCL 4 MG/2 ML VIAL IVP PRN (17:27)
[2017-10-24] MEDS: PANTOPRAZOLE SOD 40 MG DELAYED RELEASE TAB PO SCH (21:48)
[2017-10-25] VITALS (7 sets, daily range): BP systolic 100–136; BP diastolic 51–75; PULSE 72–86; RESP 15–21; TEMP 97–98.7; O2SAT 95–100
[2017-10-25] MEDS: MORPHINE SULFATE 15 MG CONTROLLED RELEASE TAB PO SCH ×3 (01:44→18:24)
[2017-10-25] MEDS: METHOCARBAMOL 500 MG TAB PO SCH ×3 (03:03→18:23)
[2017-10-25] MEDS: DIAZEPAM 10 MG TAB PO PRN ×3 (03:58→20:50)
[2017-10-25] MEDS: LEVOTHYROXINE SODIUM 125 MCG TAB PO SCH (03:58)
[2017-10-25] MEDS: SODIUM CHLOR 0.9% 1000 ML INJ 1,000 ML IV SCH ×3 (06:22→22:30)
[2017-10-25] MEDS: SODIUM CHLORIDE 0.9% FLUSH 10 ML FLUSH IV FLUSH SCH ×2 (09:15→20:49)
[2017-10-25] MEDS: POTASSIUM CHLORIDE 20 MEQ CONTROLLED RELEASE TAB PO SCH ×3 (09:16→18:24)
[2017-10-25] MEDS: DOCUSATE SODIUM 50 MG/SENNA 8.6 MG TAB PO SCH ×2 (09:16→20:50)
[2017-10-25] MEDS: FERROUS SULFATE 325 MG (65 MG ELEMENTAL IRON) TAB PO SCH ×2 (09:16→18:24)
[2017-10-25] MEDS: SPIRONOLACTONE 25 MG TAB PO SCH (09:17)
[2017-10-25] MEDS: MAGNESIUM OXIDE 400 MG TAB PO SCH (09:17)
[2017-10-25] MEDS: HEPARIN SODIUM - SQ 10,000 UNITS/ML VIAL SQ SCH ×2 (09:19→20:49)
--- NOTE | 2017-10-25 09:54 | PD.CONS ---
HPI History of Present Illness This is a 42 year old female with multiple admissions in 2017. Patient complains of abdominal pain in the right lower quadrant radiating into the back. Onset the past 2-3 days pain scale 9 out of 10 and states pain has been constant and progressively worse. She also notes nausea, increased gas and bloating, some vomiting with a small amount of blood noted and greenish secretions. Patient has had colonoscopy and endoscopy back in April 2017 and a colonoscopy repeat was done in July . Results showed gastritis and colitis in the cecum area features of ulceration . Patient has a history of lupus, Crohn's disease, renal insufficiency, Brugada status post AICD placement , history of gastroparesis, chronic pain, anxiety disorder. Patient notes some constipation which seems to be her normal trend of 2-3 days; last bowel movement was hard with pellet-type consistency. Patient denies any fevers or chills. She states that she has not been taking any medicines for her Crohn's disease. (Fely Ibarra) PFSH Past Medical History Lupus, Anxiety, Depression, Bipolar Disorder, Chronic Hypokalemia, Adrenal Insufficiency, Recurrent SHABANA, Crohn's Disease, Chronic Pain, Seizure Disorder and Gastroparesis, Brugada Past Surgical History Appendectomy, Right Subclavian Port, Partial Hysterectomy, Dental Extraction (Fely Ibarra) Coded Allergies: Fish Containing Products (Unverified Allergy, Severe, SWELLING IN THROAT, SOB, 10/01/17) cephalexin (Unverified Allergy, Severe, RASH,SWELLING, 10/01/17) ketorolac (Unverified Allergy, Severe, RASH, 10/01/17) penicillin G (Unverified Allergy, Severe, RASH,SWELLING, 10/01/17) prochlorperazine (Unverified Allergy, Mild, DYSTONIC REACTION, 10/01/17) promethazine (Unverified Allergy, Mild, DYSTONIC REACTION, 10/01/17) gabapentin (Unverified Adverse Reaction, Severe, SEIZURES, 10/01/17) Medications Administered Medications Medications (Trade) Dose Ordered Sig/Osito Route PRN Reason Start Time Stop Time Status Last Admin Dose Admin Sodium Chloride 1,000 ml @ 125 mls/hr Q8H IV 10/23/17 22:30 10/25/17 06:22 Sodium Chloride (NS Flush) 2 ml UNSCH PRN IV FLUSH FLUSH AFTER USING IV ACCESS 10/24/17 01:15 10/24/17 02:03 Ondansetron HCl (Zofran Inj) 4 mg Q6H PRN IVP NAUSEA OR VOMITING 10/24/17 01:15 10/24/17 17:27 Heparin Sodium (Porcine) (Heparin Inj) 5,000 units Q12H SQ 10/24/17 09:00 10/25/17 09:19 Senna/Docusate Sodium (Irais-Colace) 1 tab BID PO 10/24/17 09:00 10/25/17 09:16 Diazepam (Valium) 10 mg TID PRN PO muscle spasm 10/24/17 01:30 10/25/17 03:58 Ferrous Sulfate (Ferrous Sulfate) 325 mg BIDPC PO 10/24/17 09:00 10/25/17 09:16 Levothyroxine Sodium (Synthroid) 125 mcg DAILY@0600 PO 10/24/17 06:00 10/25/17 03:58 Magnesium Oxide (Mag-Ox) 400 mg DAILY PO 10/24/17 09:00 10/25/17 09:17 Morphine Sulfate (Oramorph Sr) 30 mg Q8H PO 10/24/17 02:00 10/25/17 09:18 Pantoprazole Sodium (Protonix) 40 mg HS PO 10/24/17 21:00 10/24/17 21:48 Potassium Chloride (KCl) 40 meq TID PO 10/24/17 09:00 10/25/17 09:16 Spironolactone (Aldactone) 25 mg DAILY PO 10/24/17 09:00 10/25/17 09:17 Methocarbamol (Robaxin) 500 mg Q8H PO 10/24/17 11:00 10/25/17 09:16 Family History Reviewed past family history patient denied any. Social History Negative for alcohol, tobacco or drugs. (Fely Ibarra) Review of Systems Constitutional: COMPLAINS OF: Fatigue, Weight loss Gastrointestinal: COMPLAINS OF: Abdominal pain, Bloody stools, Constipation, Nausea Genitourinary: COMPLAINS OF: Urinary frequency Psychiatric: COMPLAINS OF: Anxiety (Fely Ibarra) GI Exam Vitals I&O Vital Signs Date Time Temp Pulse Resp B/P (MAP) Pulse Ox O2 Delivery O2 Flow Rate FiO2 10/25/17 08:01 98.4 79 21 127/74 (91) 98 10/25/17 03:19 98.2 72 18 100/56 (71) 100 10/25/17 00:44 98.2 78 18 100/51 (67) 99 10/24/17 19:31 79 20 116/71 (86) 100 10/24/17 18:12 78 104/62 (76) 10/24/17 16:10 97.4 75 16 90/53 (65) 98 10/24/17 12:54 20 I/O 10/24/17 10/24/17 10/24/17 10/25/17 10/25/17 10/25/17 07:00 15:00 23:00 07:00 15:00 23:00 Intake Total 500 ml Balance 500 ml Intake IV Total 500 ml Imaging Last Impressions Abdomen X-Ray 10/24/17 0000 Signed Impressions: Service Date/Time: Tuesday, October 24, 2017 10:41 - CONCLUSION: Normal examination. Moderate stool throughout the colon. Feliz Leung MD Abdomen Ultrasound 10/24/17 0000 Signed Impressions: Service Date/Time: Tuesday, October 24, 2017 10:49 - CONCLUSION: 1. Dilatation of the common bile duct. This now measures 11 mm in size. There is also prominence to the bile ducts within the region of the hussein hepatis. This is a new finding from the prior exams. No obstructing stone or lesion observed. 2. Distention of the gallbladder with gallbladder wall thickening and pericholecystic fluid without stones or sludge. I cannot exclude acalculous cholecystitis. Vic Williamson Jr., MD Laboratory Test 10/24/17 19:49 Hemoglobin 9.2 GM/DL Physical Examination HEENT: Pupils round and reactive to light; normocephalic; atraumatic; no jaundice. NECK: Neck is supple, no JVD, no lymphadenopathy. CHEST: Chest is clear to auscultation and percussion. CARDIAC: Regular rate and rhythm, AICD ABDOMEN: Soft, mild tenderness right lower quadrant radiating into back, mild epigastric pain no hepatosplenomegaly; bowel sounds are present EXTREMITIES: No clubbing, cyanosis, or edema. SKIN: Pale Normal; no rash; no jaundice. PROPOSAL REP: No focal deficits; alert and oriented times three. Mild anxiety (Fely Ibarra) Assessment and Plan Assessment: (1) Constipation by delayed colonic transit ICD Codes: K59.01 - Slow transit constipation Status: Acute (2) Abdominal pain ICD Codes: R10.9 - Unspecified abdominal pain Status: Acute (3) Intractable nausea and vomiting ICD Codes: R11.2 - Intractable nausea and vomiting Status: Resolved (4) Esophagitis ICD Codes: K20.9 - Esophagitis Status: Acute Plan Place patient back on her prednisone 40 mg daily Labs sedimentation rate C reactive protein Protonix 40 mg by mouth twice a day Labs in the morning Monitor for any acute bleeding MRCP to eval cbd ordered but patient was unable to have done secondary to recent AICD placement. Spoke with Dr. Soliz; planned for ERCP if symptoms persist after 6 weeks HIDA scan done on 07/29/17 for the same type symptoms was a normal scan. Plan of care will be based on symptoms and management Patient was seen by myself and Dr. Soliz, no was written on his behalf (Fely Ibarra) Physician Comments Agree with the plan above. Further recommendation to follow. (Kylie Soliz MD) Fely Ibarra Oct 25, 2017 09:54 Kylie Soliz MD Oct 25, 2017 14:08
[2017-10-25 10:23] LABS: HEMATOCRIT 26.5 % (35.0-46.0); HEMOGLOBIN 8.3 GM/DL (11.6-15.3); MEAN CELL VOLUME 80.7 FL (80.0-100.0); MEAN CORPUSCULAR HEMOGLOBIN 25.3 PG (27.0-34.0); MEAN CORPUSCULAR HGB CONC 31.3 % (32.0-36.0); MEAN PLATELET VOLUME 7.9 FL (7.0-11.0); PLATELET COUNT 194 TH/MM3 (150-450); RED BLOOD COUNT 3.29 MIL/MM3 (4.00-5.30); WHITE BLOOD COUNT 6.5 TH/MM3 (4.0-11.0)
[2017-10-25 10:55] LABS: BICARBONATE 25.9 MEQ/L (21.0-32.0); CALCIUM 7.7 MG/DL (8.5-10.1); CREATININE 1.39 MG/DL (0.50-1.00)
--- NOTE | 2017-10-25 11:37 | HHI.PR ---
Subjective Remarks Follow-up for abdominal pain Patient states she continues to have abdominal pain. She also stated that she had bloody bowel movements. Otherwise no other complaints. Pain has not worsened. Objective Vitals Vital Signs Date Time Temp Pulse Resp B/P (MAP) Pulse Ox O2 Delivery O2 Flow Rate FiO2 10/25/17 08:01 98.4 79 21 127/74 (91) 98 10/25/17 03:19 98.2 72 18 100/56 (71) 100 10/25/17 00:44 98.2 78 18 100/51 (67) 99 10/24/17 19:31 79 20 116/71 (86) 100 10/24/17 18:12 78 104/62 (76) 10/24/17 16:10 97.4 75 16 90/53 (65) 98 10/24/17 12:54 20 I/O 10/24/17 10/24/17 10/24/17 10/25/17 10/25/17 10/25/17 07:00 15:00 23:00 07:00 15:00 23:00 Intake Total 500 ml 240 ml Balance 500 ml 240 ml Intake Oral 240 ml IV Total 500 ml Result Diagram: 10/25/17 1004 10/25/17 1004 Imaging Last Impressions Abdomen X-Ray 10/24/17 0000 Signed Impressions: Service Date/Time: Tuesday, October 24, 2017 10:41 - CONCLUSION: Normal examination. Moderate stool throughout the colon. Feliz Leung MD Abdomen Ultrasound 10/24/17 0000 Signed Impressions: Service Date/Time: Tuesday, October 24, 2017 10:49 - CONCLUSION: 1. Dilatation of the common bile duct. This now measures 11 mm in size. There is also prominence to the bile ducts within the region of the hussein hepatis. This is a new finding from the prior exams. No obstructing stone or lesion observed. 2. Distention of the gallbladder with gallbladder wall thickening and pericholecystic fluid without stones or sludge. I cannot exclude acalculous cholecystitis. Vic Williamson Jr., MD Objective Remarks GENERAL: in NAD CARDIOVASCULAR: Regular rate and rhythm without murmurs, gallops, or rubs. RESPIRATORY: Breath sounds equal bilaterally. No accessory muscle use. GASTROINTESTINAL: Abdomen soft, non-tender, nondistended. MUSCULOSKELETAL: No cyanosis, or edema. + TTP of the lower abdomen. BACK: Nontender without obvious deformity. No CVA tenderness. Medications and IVs Current Medications Ondansetron HCl (Zofran Inj) 4 mg ONCE ONCE IV PUSH Last administered on 10/23 22:49; Start 10/23/17 at 22:30; Stop 10/23/17 at 22:31; Status DC Sodium Chloride 500 ml @ 500 mls/hr BOLUS ONCE IV Last administered on 22:48; Start 10/23/17 at 22:30; Stop 10/23/17 at 23:29; Status DC Sodium Chloride 1,000 ml @ 125 mls/hr Q8H IV Last administered on 10/25/17 06:22; Start 10/23/17 at 22:30 Hydromorphone HCl (Dilaudid Pf Inj) 1 mg ONCE ONCE IVS Last administered on 22:49; Start 10/23/17 at 22:30; Stop 10/23/17 at 22:31; Status DC Diazepam (Valium) 10 mg ONCE ONCE PO Last administered on 10/23/17 22:50; Start 10/23/17 at 22:30; Stop 10/23/17 at 22:31; Status DC Hydromorphone HCl (Dilaudid Pf Inj) 1 mg ONCE ONCE IVS Last administered on 00:39; Start 10/24/17 at 00:30; Stop 10/24/17 at 00:31; Status DC Sodium Chloride 1,000 ml @ 999 mls/hr BOLUS ONCE IV Last administered on 00:38; Start 10/24/17 at 00:30; Stop 10/24/17 at 01:30; Status DC Sodium Chloride (NS Flush) 2 ml UNSCH PRN IV FLUSH FLUSH AFTER USING IV ACCESS Last administered on 10/24/17 02:03; Start 10/24/17 at 01:15 Sodium Chloride (NS Flush) 2 ml BID IV FLUSH ; Start 10/24/17 at 09:00 Acetaminophen (Tylenol) 650 mg Q4H PRN PO TEMP > 100.4; Start 10/24/17 at 01: 15 Ondansetron HCl (Zofran Inj) 4 mg Q6H PRN IVP NAUSEA OR VOMITING Last administered on 10/24/17 17:27; Start 10/24/17 at 01:15 Heparin Sodium (Porcine) (Heparin Inj) 5,000 units Q12H SQ Last administered on 10/25/17 09:19; Start 10/24/17 at 09:00 Naloxone HCl (Narcan Inj) 0.4 mg UNSCH PRN IV PUSH SEE LABEL COMMENTS; Start 10/24/17 at 01:15 Senna/Docusate Sodium (Irais-Colace) 1 tab BID PO Last administered on 09:16; Start 10/24/17 at 09:00 Magnesium Hydroxide (Milk Of Magnesia Liq) 30 ml Q12H PRN PO Mild constipation ; Start 10/24/17 at 01:15 Sennosides (Senokot) 17.2 mg Q12H PRN PO Moderate constipation; Start at 01:15 Bisacodyl (Dulcolax Supp) 10 mg DAILY PRN RECTAL SEVERE CONSITIPATION; Start 10/24/17 at 01:15 Lactulose (Lactulose Liq) 30 ml DAILY PRN PO SEVERE CONSITIPATION; Start 10/24 at 01:15 Diazepam (Valium) 10 mg TID PRN PO muscle spasm Last administered on 03:58; Start 10/24/17 at 01:30 Ferrous Sulfate (Ferrous Sulfate) 325 mg BIDPC PO Last administered on 09:16; Start 10/24/17 at 09:00 Levothyroxine Sodium (Synthroid) 125 mcg DAILY@0600 PO Last administered on 03:58; Start 10/24/17 at 06:00 Magnesium Oxide (Mag-Ox) 400 mg DAILY PO Last administered on 10/25/17 09:17 ; Start 10/24/17 at 09:00 Morphine Sulfate (Oramorph Sr) 30 mg Q8H PO Last administered on 10/25/17 09: 18; Start 10/24/17 at 02:00 Pantoprazole Sodium (Protonix) 40 mg HS PO Last administered on 10/24/17 21: 48; Start 10/24/17 at 21:00 Potassium Chloride (KCl) 40 meq TID PO Last administered on 10/25/17 09:16; Start 10/24/17 at 09:00 Spironolactone (Aldactone) 25 mg DAILY PO Last administered on 10/25/17 09:17 ; Start 10/24/17 at 09:00 Methocarbamol (Robaxin) 500 mg Q8H PO Last administered on 10/25/17 09:16; Start 10/24/17 at 11:00 Prednisone (Deltasone) 40 mg DAILY PO ; Start 10/25/17 at 10:15 Pantoprazole Sodium (Protonix) 40 mg Q12HR PO ; Start 10/25/17 at 10:15 A/P Assessment and Plan 42 F with extensive medical history who presented with lower back pain and abdominal pain Abdominal pain/lower back pain -Both types of pain seem to be associated with each other. It seems more that her lower back pain is causing her abdominal pain. Patient did have episode of emesis. Imaging obtained in the ED. Lipase 58. -Patient does have renal insufficiency so we will be cautious with using any contrast. -KUB showed ? acalculous cholecystitis and CBD dilation so GI consult placed. -continue IV fluids, anti-emetics and pain medication. -Will get a vaginal ultrasound. Anemia -Stable. Per GI continue to monitor. Her current regimen. Renal insufficiency -This has been a chronic problem secondary to lupus. 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 Creatinine continues to improve. -Will give IV fluids. Avoid nephrotoxins. Continue to trend creatinine. Chronic pain syndrome -Continue home medication. Brugada status post AICD/Crohn's/lupus/anxiety -Continue home medication. Annette Marcelo MD Oct 25, 2017 11:37
[2017-10-25] MEDS: predniSONE 20 MG TAB PO SCH (12:23)
[2017-10-25] MEDS: PANTOPRAZOLE SOD 40 MG DELAYED RELEASE TAB PO SCH ×3 (12:24→20:50)
--- NOTE | 2017-10-25 15:03 | RADRPT ---
EXAM DATE/TIME: 10/25/2017 13:52 [facility] COMPARISON: No previous studies available for comparison. INDICATIONS : Pelvic pains. MEDICAL HISTORY : Endometriosis. Hypertension. Hypothyroid. Juvenile epilepsy. Kidney disease. Crohn's. lupus. gastr oparesis. nephritis. SURGICAL HISTORY : Appendectomy. Pacemaker. Partial oopherectomy. Multriple laporascopic surgeries. ENCOUNTER: Initial ACUITY: 1 month PAIN SCORE: 4/10 LOCATION: Bilateral pelvis MEASUREMENTS: UTERUS: 9.9 x 6.7 x 4.4 cm ENDOMETRIAL STRIPE: 8 mm RIGHT OVARY: 5.0 x 1.9 x 1.7 cm Doppler Flow: Yes LEFT OVARY: 4.8 x 3.6 x 2.0 cm Doppler Flow: Yes FINDINGS: UTERUS: The myometrium has homogeneous echotexture without mass. RIGHT OVARY: Ovary contains no mass or significant cystic lesion. Blood flow is demonstrated. LEFT OVARY: 2 small anechoic cysts measuring 2.0 x 1.4 x 1.4 cm and 1.7 x 1.6 x 1.7 cm. Ovary contains no ma ss or significant cystic lesion. Blood flow is demonstrated. MISCELLANEOUS: No free fluid. CONCLUSION: 1. Unremarkable ultrasound examination of the pelvis. 2. Small left ovarian cysts, within normal limits. 3. Otherwise, normal appearing ovaries with normal blood flow at this time. Gil Valente MD on October 25, 2017 at 14:57 Board Certified Radiologist. This report was verified electronically.
[2017-10-26] MEDS: MORPHINE SULFATE 15 MG CONTROLLED RELEASE TAB PO SCH ×3 (02:19→18:07)
[2017-10-26] MEDS: METHOCARBAMOL 500 MG TAB PO SCH ×3 (02:19→18:08)
[2017-10-26 03:58] VITALS: BP 101/62; PULSE 80; RESP 16; TEMP 98.3; O2SAT 99
[2017-10-26] MEDS: DIAZEPAM 10 MG TAB PO PRN ×3 (04:57→21:26)
[2017-10-26] MEDS: LEVOTHYROXINE SODIUM 125 MCG TAB PO SCH (04:58)
[2017-10-26] MEDS: SODIUM CHLOR 0.9% 1000 ML INJ 1,000 ML IV SCH ×3 (05:18→21:26)
[2017-10-26 07:41] VITALS: BP 134/80; PULSE 78; RESP 18; TEMP 96.2; O2SAT 98
[2017-10-26] MEDS: HEPARIN SODIUM - SQ 10,000 UNITS/ML VIAL SQ SCH ×2 (09:25→21:25)
[2017-10-26] MEDS: DOCUSATE SODIUM 50 MG/SENNA 8.6 MG TAB PO SCH ×2 (09:25→21:26)
[2017-10-26] MEDS: FERROUS SULFATE 325 MG (65 MG ELEMENTAL IRON) TAB PO SCH ×2 (09:25→18:08)
[2017-10-26] MEDS: POTASSIUM CHLORIDE 20 MEQ CONTROLLED RELEASE TAB PO SCH ×3 (09:25→18:08)
[2017-10-26] MEDS: SPIRONOLACTONE 25 MG TAB PO SCH (09:26)
[2017-10-26] MEDS: predniSONE 20 MG TAB PO SCH (09:26)
[2017-10-26] MEDS: PANTOPRAZOLE SOD 40 MG DELAYED RELEASE TAB PO SCH ×3 (09:26→21:26)
[2017-10-26] MEDS: SODIUM CHLORIDE 0.9% FLUSH 10 ML FLUSH IV FLUSH SCH ×2 (09:28→19:26)
--- NOTE | 2017-10-26 12:58 | HHI.PR ---
Subjective Remarks Follow-up for abdominal pain Patient continues to complain the same abdominal pain. Positive nausea/ vomiting. No GI bleed. No other complaints. Remains afebrile. Objective Vitals Vital Signs Date Time Temp Pulse Resp B/P (MAP) Pulse Ox O2 Delivery O2 Flow Rate FiO2 10/26/17 07:41 96.2 78 18 134/80 (98) 98 10/26/17 03:58 98.3 80 16 101/62 (75) 99 10/25/17 23:49 98.6 80 17 107/55 (72) 95 10/25/17 20:38 98.1 80 15 136/75 (95) 98 10/25/17 15:47 97.0 86 18 102/62 (75) 99 I/O 10/25/17 10/25/17 10/25/17 10/26/17 10/26/17 10/26/17 07:00 15:00 23:00 07:00 15:00 23:00 Intake Total 1190 ml Balance 1190 ml Intake Oral 240 ml IV Total 950 ml Result Diagram: 10/25/17 1004 10/25/17 1004 Imaging Last Impressions Pelvis Ultrasound 10/25/17 0000 Signed Impressions: Service Date/Time: Wednesday, October 25, 2017 13:52 - CONCLUSION: 1. Unremarkable ultrasound examination of the pelvis. 2. Small left ovarian cysts , within normal limits. 3. Otherwise, normal appearing ovaries with normal blood flow at this time. Gil Valente MD Abdomen X-Ray 10/24/17 0000 Signed Impressions: Service Date/Time: Tuesday, October 24, 2017 10:41 - CONCLUSION: Normal examination. Moderate stool throughout the colon. Feliz Leung MD Abdomen Ultrasound 10/24/17 0000 Signed Impressions: Service Date/Time: Tuesday, October 24, 2017 10:49 - CONCLUSION: 1. Dilatation of the common bile duct. This now measures 11 mm in size. There is also prominence to the bile ducts within the region of the hussein hepatis. This is a new finding from the prior exams. No obstructing stone or lesion observed. 2. Distention of the gallbladder with gallbladder wall thickening and pericholecystic fluid without stones or sludge. I cannot exclude acalculous cholecystitis. Vic Williamson Jr., MD Objective Remarks GENERAL: in NAD CARDIOVASCULAR: Regular rate and rhythm without murmurs, gallops, or rubs. RESPIRATORY: Breath sounds equal bilaterally. No accessory muscle use. GASTROINTESTINAL: Abdomen soft, non-tender, nondistended. MUSCULOSKELETAL: No cyanosis, or edema. + TTP of the lower abdomen. BACK: Nontender without obvious deformity. No CVA tenderness. Medications and IVs Current Medications Ondansetron HCl (Zofran Inj) 4 mg ONCE ONCE IV PUSH Last administered on 10/23 22:49; Start 10/23/17 at 22:30; Stop 10/23/17 at 22:31; Status DC Sodium Chloride 500 ml @ 500 mls/hr BOLUS ONCE IV Last administered on 22:48; Start 10/23/17 at 22:30; Stop 10/23/17 at 23:29; Status DC Sodium Chloride 1,000 ml @ 125 mls/hr Q8H IV Last administered on 10/26/17 05:18; Start 10/23/17 at 22:30 Hydromorphone HCl (Dilaudid Pf Inj) 1 mg ONCE ONCE IVS Last administered on 22:49; Start 10/23/17 at 22:30; Stop 10/23/17 at 22:31; Status DC Diazepam (Valium) 10 mg ONCE ONCE PO Last administered on 10/23/17 22:50; Start 10/23/17 at 22:30; Stop 10/23/17 at 22:31; Status DC Hydromorphone HCl (Dilaudid Pf Inj) 1 mg ONCE ONCE IVS Last administered on 00:39; Start 10/24/17 at 00:30; Stop 10/24/17 at 00:31; Status DC Sodium Chloride 1,000 ml @ 999 mls/hr BOLUS ONCE IV Last administered on 00:38; Start 10/24/17 at 00:30; Stop 10/24/17 at 01:30; Status DC Sodium Chloride (NS Flush) 2 ml UNSCH PRN IV FLUSH FLUSH AFTER USING IV ACCESS Last administered on 10/24/17 02:03; Start 10/24/17 at 01:15 Sodium Chloride (NS Flush) 2 ml BID IV FLUSH ; Start 10/24/17 at 09:00 Acetaminophen (Tylenol) 650 mg Q4H PRN PO TEMP > 100.4; Start 10/24/17 at 01: 15 Ondansetron HCl (Zofran Inj) 4 mg Q6H PRN IVP NAUSEA OR VOMITING Last administered on 10/24/17 17:27; Start 10/24/17 at 01:15 Heparin Sodium (Porcine) (Heparin Inj) 5,000 units Q12H SQ Last administered on 10/26/17 09:25; Start 10/24/17 at 09:00 Naloxone HCl (Narcan Inj) 0.4 mg UNSCH PRN IV PUSH SEE LABEL COMMENTS; Start 10/24/17 at 01:15 Senna/Docusate Sodium (Irais-Colace) 1 tab BID PO Last administered on 09:25; Start 10/24/17 at 09:00 Magnesium Hydroxide (Milk Of Magnesia Liq) 30 ml Q12H PRN PO Mild constipation ; Start 10/24/17 at 01:15 Sennosides (Senokot) 17.2 mg Q12H PRN PO Moderate constipation; Start at 01:15 Bisacodyl (Dulcolax Supp) 10 mg DAILY PRN RECTAL SEVERE CONSITIPATION; Start 10/24/17 at 01:15 Lactulose (Lactulose Liq) 30 ml DAILY PRN PO SEVERE CONSITIPATION; Start 10/24 at 01:15 Diazepam (Valium) 10 mg TID PRN PO muscle spasm Last administered on 04:57; Start 10/24/17 at 01:30 Ferrous Sulfate (Ferrous Sulfate) 325 mg BIDPC PO Last administered on 09:25; Start 10/24/17 at 09:00 Levothyroxine Sodium (Synthroid) 125 mcg DAILY@0600 PO Last administered on 04:58; Start 10/24/17 at 06:00 Magnesium Oxide (Mag-Ox) 400 mg DAILY PO Last administered on 10/25/17 09:17 ; Start 10/24/17 at 09:00 Morphine Sulfate (Oramorph Sr) 30 mg Q8H PO Last administered on 10/26/17 09: 34; Start 12/19/17 at 02:00 Pantoprazole Sodium (Protonix) 40 mg HS PO Last administered on 10/25/17 20: 49; Start 10/24/17 at 21:00 Potassium Chloride (KCl) 40 meq TID PO Last administered on 10/26/17 09:25; Start 10/24/17 at 09:00 Spironolactone (Aldactone) 25 mg DAILY PO Last administered on 10/26/17 09:26 ; Start 10/24/17 at 09:00 Methocarbamol (Robaxin) 500 mg Q8H PO Last administered on 10/26/17 10:47; Start 10/24/17 at 11:00 Prednisone (Deltasone) 40 mg DAILY PO Last administered on 10/26/17 09:26; Start 10/25/17 at 10:15 Pantoprazole Sodium (Protonix) 40 mg Q12HR PO Last administered on 10/26/17 09:26; Start 10/25/17 at 10:15 A/P Assessment and Plan 42 F with extensive medical history who presented with lower back pain and abdominal pain Abdominal pain/lower back pain -Both types of pain seem to be associated with each other. It seems more that her lower back pain is causing her abdominal pain. Patient did have episode of emesis. Imaging obtained in the ED. Lipase 58. -Patient does have renal insufficiency so we will be cautious with using any contrast. -KUB showed ? acalculous cholecystitis and CBD dilation so GI consult placed. -GI stated that since patient had a recent AICD unable to do MRCP or ERCP so recommended that as outpatient in 6 weeks. General surgeon consult due to the possibility of patient having acalculous cholecystitis. Anemia -Stable. Per GI continue to monitor. Her current regimen. Renal insufficiency -This has been a chronic problem secondary to lupus. 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 -Continue with IV fluids since creatinine continues to improve and she has decreased oral intake. Avoid nephrotoxins. Continue to trend creatinine. Chronic pain syndrome -Continue home medication. Brugada status post AICD/Crohn's/lupus/anxiety -Continue home medication. Annette Marcelo MD Oct 26, 2017 12:58
--- NOTE | 2017-10-26 13:07 | HHI.GIFU ---
Subjective Remarks Pt resting in bed, watching movie on laptop. C/o continued abd pain, constipation, rectal bleeding with BM. (Mari Pérez) Objective Vitals I&O Vital Signs Date Time Temp Pulse Resp B/P (MAP) Pulse Ox O2 Delivery O2 Flow Rate FiO2 10/26/17 07:41 96.2 78 18 134/80 (98) 98 10/26/17 03:58 98.3 80 16 101/62 (75) 99 10/25/17 23:49 98.6 80 17 107/55 (72) 95 10/25/17 20:38 98.1 80 15 136/75 (95) 98 10/25/17 15:47 97.0 86 18 102/62 (75) 99 I/O 10/25/17 10/25/17 10/25/17 10/26/17 10/26/17 10/26/17 07:00 15:00 23:00 07:00 15:00 23:00 Intake Total 1190 ml Balance 1190 ml Intake Oral 240 ml IV Total 950 ml Imaging Last Impressions Pelvis Ultrasound 10/25/17 0000 Signed Impressions: Service Date/Time: Wednesday, October 25, 2017 13:52 - CONCLUSION: 1. Unremarkable ultrasound examination of the pelvis. 2. Small left ovarian cysts , within normal limits. 3. Otherwise, normal appearing ovaries with normal blood flow at this time. Gil Valente MD Abdomen X-Ray 10/24/17 0000 Signed Impressions: Service Date/Time: Tuesday, October 24, 2017 10:41 - CONCLUSION: Normal examination. Moderate stool throughout the colon. Feliz Leung MD Abdomen Ultrasound 10/24/17 0000 Signed Impressions: Service Date/Time: Tuesday, October 24, 2017 10:49 - CONCLUSION: 1. Dilatation of the common bile duct. This now measures 11 mm in size. There is also prominence to the bile ducts within the region of the hussein hepatis. This is a new finding from the prior exams. No obstructing stone or lesion observed. 2. Distention of the gallbladder with gallbladder wall thickening and pericholecystic fluid without stones or sludge. I cannot exclude acalculous cholecystitis. Vic Williamson Jr., MD Physical Exam HEENT: PERRL; normocephalic; atraumatic; no jaundice. CHEST: CTA CARDIAC: RRR ABDOMEN: Soft, nondistended,lower quadrant TTP; no hepatosplenomegaly; bowel sounds are present in all four quadrants. EXTREMITIES: No clubbing, cyanosis, or edema. BLE TTP SKIN: Normal; no rash; no jaundice. RUG SIZER: No focal deficits; alert and oriented times three. (Mari Pérez) Assessment and Plan Assessment: (1) Constipation by delayed colonic transit ICD Codes: K59.01 - Slow transit constipation Status: Acute (2) Abdominal pain ICD Codes: R10.9 - Unspecified abdominal pain Status: Acute (3) Intractable nausea and vomiting ICD Codes: R11.2 - Intractable nausea and vomiting Status: Resolved (4) Esophagitis ICD Codes: K20.9 - Esophagitis Status: Acute Plan ASSESSMENT - constipation - chronic. KUB showing moderate stool, pt having hard infrequent stools. - rectal bleeding - likely 2/2 above. last colonoscopy x 2 01/2017 incomplete, stool in colon. - abd pain - unclear etiology. constipation likely a factor. US as below - abnormal imaging - US showing distended gallbladder with wall thickening, dilatation CBD and prominence hussein hepatis area bile ducts. GS consult pending. No LFT derangement. PLAN - encourage pt to ask for her PRN constipation meds, she wants to try lactulose - continue bowel regimen - 40mg prednisone daily - BID protonix - if abd pain persists for 6 weeks, ERCP - consider colonoscopy outpt - supportive care Patient was seen by myself and Dr. Soliz, note was written on his behalf (Mari Pérez) Physician Comments XRay showing significant fecal material and still constipated, will plan to give Golytely orally since other regimens failed. (Kylie Soliz MD) Mari Pérez Oct 26, 2017 13:07 Kylie Soliz MD Oct 26, 2017 13:49
[2017-10-26] MEDS: MAGNESIUM OXIDE 400 MG TAB PO SCH (13:21)
[2017-10-26 13:28] VITALS: BP 108/61; PULSE 80; RESP 20; TEMP 96.5; O2SAT 97
[2017-10-26] MEDS ORDERED: PEG (High)/E-LYTE SOLN 4000 ML BTL PO ONE (14:00)
[2017-10-26 18:15] VITALS: BP 114/56; PULSE 80; RESP 20; TEMP 96.3; O2SAT 97
[2017-10-26 20:39] VITALS: BP 117/75; PULSE 81; RESP 17; TEMP 98.3; O2SAT 100
[2017-10-27] VITALS (8 sets, daily range): BP systolic 85–115; BP diastolic 50–70; PULSE 72–80; RESP 16–18; TEMP 97.7–99; O2SAT 96–100
[2017-10-27] MEDS: METHOCARBAMOL 500 MG TAB PO SCH ×3 (02:02→20:29)
[2017-10-27] MEDS: MORPHINE SULFATE 15 MG CONTROLLED RELEASE TAB PO SCH ×3 (02:02→18:00)
[2017-10-27] MEDS: DIAZEPAM 10 MG TAB PO PRN ×3 (05:27→23:40)
[2017-10-27] MEDS: LEVOTHYROXINE SODIUM 125 MCG TAB PO SCH (05:27)
[2017-10-27] MEDS ORDERED: SODIUM CHLORID 0.9% 500 ML IV PRN (05:45)
[2017-10-27] MEDS ORDERED: POVIDONE IODINE 5% (ANTISEPSIS KIT) 4 APPLICATIONS EACH NARE PRN (05:45)
[2017-10-27] MEDS ORDERED: CHLORHEXIDINE GLUCONATE 2 % 1 PACK (2 CLOTHS) TOPICAL PRN (05:45)
[2017-10-27] MEDS ORDERED: METOPROLOL TARTRATE 25 MG TAB PO PRN (05:45)
[2017-10-27] MEDS ORDERED: LACTATED RINGER'S 1000 ML IV PRN (05:45)
[2017-10-27] MEDS: SODIUM CHLOR 0.9% 1000 ML INJ 1,000 ML IV SCH ×2 (06:30→14:30)
[2017-10-27] MEDS: DOCUSATE SODIUM 50 MG/SENNA 8.6 MG TAB PO SCH ×2 (08:45→20:21)
[2017-10-27] MEDS: FERROUS SULFATE 325 MG (65 MG ELEMENTAL IRON) TAB PO SCH ×2 (08:45→20:21)
[2017-10-27] MEDS: SPIRONOLACTONE 25 MG TAB PO SCH (08:45)
[2017-10-27] MEDS: PANTOPRAZOLE SOD 40 MG DELAYED RELEASE TAB PO SCH ×3 (08:45→23:40)
[2017-10-27] MEDS: SODIUM CHLORIDE 0.9% FLUSH 10 ML FLUSH IV FLUSH SCH ×2 (08:45→21:00)
[2017-10-27] MEDS: predniSONE 20 MG TAB PO SCH (08:45)
--- NOTE | 2017-10-27 08:48 | HHI.PR ---
Subjective Remarks Follow-up for abdominal pain There is order placed for patient to be nothing by mouth today. Patient stated that she scheduled for surgery today. She is asking why labs havent been drawn yet. Otherwise she has no other complaints. The nausea is no emesis. Afebrile. Objective Vitals Vital Signs Date Time Temp Pulse Resp B/P (MAP) Pulse Ox O2 Delivery O2 Flow Rate FiO2 10/27/17 08:13 97.7 72 18 108/59 (75) 97 10/27/17 04:49 98.1 77 16 109/62 (78) 97 10/27/17 00:16 98.5 80 113/70 (84) 97 10/26/17 20:39 98.3 81 17 117/75 (89) 100 10/26/17 18:15 96.3 80 20 114/56 (75) 97 10/26/17 13:28 96.5 80 20 108/61 (77) 97 I/O 10/26/17 10/26/17 10/26/17 10/27/17 10/27/17 10/27/17 07:00 15:00 23:00 07:00 15:00 23:00 Intake Total 1252 ml Balance 1252 ml IV Total 1252 ml # Voids 4 # Bowel Movements 1 Result Diagram: 10/25/17 1004 10/25/17 1004 Objective Remarks GENERAL: in NAD CARDIOVASCULAR: Regular rate and rhythm without murmurs, gallops, or rubs. RESPIRATORY: Breath sounds equal bilaterally. No accessory muscle use. GASTROINTESTINAL: Abdomen soft, non-tender, nondistended. MUSCULOSKELETAL: No cyanosis, or edema. + TTP of the lower abdomen. BACK: Nontender without obvious deformity. No CVA tenderness. Medications and IVs Current Medications Ondansetron HCl (Zofran Inj) 4 mg ONCE ONCE IV PUSH Last administered on 10/23 22:49; Start 10/23/17 at 22:30; Stop 10/23/17 at 22:31; Status DC Sodium Chloride 500 ml @ 500 mls/hr BOLUS ONCE IV Last administered on 22:48; Start 10/23/17 at 22:30; Stop 10/23/17 at 23:29; Status DC Sodium Chloride 1,000 ml @ 125 mls/hr Q8H IV Last administered on 10/27/17 06:30; Start 10/23/17 at 22:30 Hydromorphone HCl (Dilaudid Pf Inj) 1 mg ONCE ONCE IVS Last administered on 22:49; Start 10/23/17 at 22:30; Stop 10/23/17 at 22:31; Status DC Diazepam (Valium) 10 mg ONCE ONCE PO Last administered on 10/23/17 22:50; Start 10/23/17 at 22:30; Stop 10/23/17 at 22:31; Status DC Hydromorphone HCl (Dilaudid Pf Inj) 1 mg ONCE ONCE IVS Last administered on 00:39; Start 10/24/17 at 00:30; Stop 10/24/17 at 00:31; Status DC Sodium Chloride 1,000 ml @ 999 mls/hr BOLUS ONCE IV Last administered on 00:38; Start 10/24/17 at 00:30; Stop 10/24/17 at 01:30; Status DC Sodium Chloride (NS Flush) 2 ml UNSCH PRN IV FLUSH FLUSH AFTER USING IV ACCESS Last administered on 10/24/17 02:03; Start 10/24/17 at 01:15 Sodium Chloride (NS Flush) 2 ml BID IV FLUSH ; Start 10/24/17 at 09:00 Acetaminophen (Tylenol) 650 mg Q4H PRN PO TEMP > 100.4; Start 10/24/17 at 01: 15 Ondansetron HCl (Zofran Inj) 4 mg Q6H PRN IVP NAUSEA OR VOMITING Last administered on 10/24/17 17:27; Start 10/24/17 at 01:15 Heparin Sodium (Porcine) (Heparin Inj) 5,000 units Q12H SQ Last administered on 10/26/17 21:25; Start 10/24/17 at 09:00 Naloxone HCl (Narcan Inj) 0.4 mg UNSCH PRN IV PUSH SEE LABEL COMMENTS; Start 10/24/17 at 01:15 Senna/Docusate Sodium (Irais-Colace) 1 tab BID PO Last administered on 21:26; Start 10/24/17 at 09:00 Magnesium Hydroxide (Milk Of Magnesia Liq) 30 ml Q12H PRN PO Mild constipation ; Start 10/24/17 at 01:15 Sennosides (Senokot) 17.2 mg Q12H PRN PO Moderate constipation Last administered on 10/26/17 21:25; Start 10/24/17 at 01:15 Bisacodyl (Dulcolax Supp) 10 mg DAILY PRN RECTAL SEVERE CONSITIPATION; Start 10/24/17 at 01:15 Lactulose (Lactulose Liq) 30 ml DAILY PRN PO SEVERE CONSITIPATION Last administered on 10/26/17 15:02; Start 10/24/17 at 01:15 Diazepam (Valium) 10 mg TID PRN PO muscle spasm Last administered on 05:27; Start 10/24/17 at 01:30 Ferrous Sulfate (Ferrous Sulfate) 325 mg BIDPC PO Last administered on 18:08; Start 10/24/17 at 09:00 Levothyroxine Sodium (Synthroid) 125 mcg DAILY@0600 PO Last administered on 05:27; Start 10/24/17 at 06:00 Magnesium Oxide (Mag-Ox) 400 mg DAILY PO Last administered on 10/26/17 13:21 ; Start 10/24/17 at 09:00 Morphine Sulfate (Oramorph Sr) 30 mg Q8H PO Last administered on 10/27/17 02: 02; Start 10/24/17 at 02:00 Pantoprazole Sodium (Protonix) 40 mg HS PO Last administered on 10/26/17 21: 26; Start 10/24/17 at 21:00 Potassium Chloride (KCl) 40 meq TID PO Last administered on 10/26/17 18:08; Start 10/24/17 at 09:00 Spironolactone (Aldactone) 25 mg DAILY PO Last administered on 10/26/17 09:26 ; Start 10/24/17 at 09:00 Methocarbamol (Robaxin) 500 mg Q8H PO Last administered on 10/27/17 02:02; Start 10/24/17 at 11:00 Prednisone (Deltasone) 40 mg DAILY PO Last administered on 10/26/17 09:26; Start 10/25/17 at 10:15 Pantoprazole Sodium (Protonix) 40 mg Q12HR PO Last administered on 10/26/17t 21:26; Start 10/25/17 at 10:15 Polyethylene Glycol/ Electrolytes (Colyte Liq) 4,000 ml ONCE ONCE PO ; Start 10/26/17 at 14:00; Stop 10/26/17 at 14:01; Status DC Lactated Ringer's 1,000 ml @ 30 mls/hr Q24H PRN IV SEE LABEL COMMENTS; Start 10/27/17 at 05:45; Stop 10/30/17 at 05:44 Sodium Chloride 500 ml @ 30 mls/hr [id number] PRN IV SEE LABEL COMMENTS; Start at 05:45; Stop 10/30/17 at 05:44 Metoprolol Tartrate (Lopressor) 25 mg DIPLOMA DENTAL ASSISTANT PRN PO SEE LABEL COMMENTS; Start 10/27/17 at 05:45; Stop 10/30/17 at 05:44 Povidone Iodine (Betadine 5% Antisepsis Kit) 1 applic DIPLOMA DENTAL ASSISTANT PRN EACH NARE SEE LABEL COMMENTS; Start 10/27/17 at 05:45; Stop 10/30/17 at 05:44 Chlorhexidine Gluconate (Chlorhexidine 2% Cloth) 3 pack DIPLOMA DENTAL ASSISTANT PRN TOPICAL SEE LABEL COMMENTS; Start 10/27/17 at 05:45; Stop 10/30/17 at 05:44 A/P Assessment and Plan 42 F with extensive medical history who presented with lower back pain and abdominal pain Abdominal pain/lower back pain -Both types of pain seem to be associated with each other. It seems more that her lower back pain is causing her abdominal pain. Patient did have episode of emesis. Imaging obtained in the ED. Lipase 58. -Patient does have renal insufficiency so we will be cautious with using any contrast. -KUB showed ? acalculous cholecystitis and CBD dilation so GI consult placed. -GI stated that since patient had a recent AICD unable to do MRCP or ERCP so recommended that as outpatient in 6 weeks. -Patient scheduled for surgery today. Anemia -Stable. Per GI continue to monitor. Her current regimen. Renal insufficiency -This has been a chronic problem secondary to lupus. 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 Creatinine continues to improve. -Continue with IV fluids since creatinine continues to improve and she has decreased oral intake. Avoid nephrotoxins. Continue to trend creatinine. Pending morning labs from today. Chronic pain syndrome -Continue home medication. Brugada status post AICD/Crohn's/lupus/anxiety -Continue home medication. Annette Marcelo MD Oct 27, 2017 08:48
[2017-10-27] MEDS: HEPARIN SODIUM - SQ 10,000 UNITS/ML VIAL SQ SCH ×2 (09:00→23:41)
[2017-10-27] MEDS: POTASSIUM CHLORIDE 20 MEQ CONTROLLED RELEASE TAB PO SCH ×3 (09:00→20:21)
--- NOTE | 2017-10-27 11:17 | GIPROC ---
[facility] [address] [facility]. [facility], [address] ERCP PROCEDURE REPORT EXAM DATE: 10/27/2017 PATIENT NAME: Brisa Hernandez MR #: [id number] BIRTHDATE: 1975 ATTENDING: Kylie Soliz MD ORDER #: [id number] PHYSICIAN IN PRIVATE PRACTICE: Pawel Lombardi Stienbarger, Terrie, and Mikayla Maciel STATUS: inpatient INDICATIONS: The patient is a 42 yr old female here for an ERCP due to abnormal abdominal CT PROCEDURE PERFORMED: ERCP, diagnostic MEDICATIONS: None and Per Anesthesia. CONSENT: The patient understands the risks and benefits of the procedure and understands that these risks include, but are not limited to: sedation, allergic reaction, infection, perforation and/or bleeding. Alternative means of evaluation and treatment include, among others: physical exam, x-rays, and/or surgical intervention. The patient elects to proceed with this endoscopic procedure. medical equipment was checked for proper function. Hand hygiene and appropriate measures for infection prevention was taken. After the risks, benefits and alternatives of the procedure were thoroughly explained, Informed was verified, confirmed and timeout was successfully executed by the treatment team. With the patient in left semi-prone position, medications were administered intravenously.The Pentax [id number] was passed from the mouth into the esophagus and further advanced from the esophagus into the stomach. From stomach scope was directed to the second portion of the duodenum. Major papilla was aligned with the duodenoscope. The scope position was confirmed fluoroscopically. Rest of the findings/therapeutics are given below. The scope was then completely withdrawn from the patient and the procedure completed. The pulse, BP, and O2 saturation were monitored and documented by the physician and the nursing staff throughout the entire procedure. The patient was cared for as planned according to standard protocol. The patient was then discharged to recovery in stable condition and with appropriate post procedure care. The ampulla was located the second portion of the duodenum. The ampulla appeared normal. There was a dilation of the CBD. ADVERSE EVENT: There were no complications. IMPRESSIONS: Normal appearing ampulla The Biliary tree was minimally dialted (around 9 mm) but no filling defects and no strictures . RECOMMENDATIONS: No treatment REPEAT EXAM: As needed Kylie Soliz MD eSigned: Kylie Soliz MD 10/27/2017 11:17 AM cc:
--- NOTE | 2017-10-27 11:29 | RADRPT ---
EXAM DATE/TIME: 10/27/2017 11:09 [place] COMPARISON: No previous studies available for comparison. INDICATIONS : Abnormal imaging, concern for stones. FLUORO TIME: .8 minutes IMAGE COUNT: 3 CONTRAST: Instilled by Ordering Physician MEDICAL HISTORY : Gastroparesis. Nephritis. Crohn's disease. SURGICAL HISTORY : Appendectomy. Hysterectomy. ENCOUNTER: Initial ACUITY: 1 day PAIN SCORE: Non-responsive. LOCATION: Abdomen. FINDINGS: An ERCP was performed by the ordering physician. The images demonstrate a prominent common bile duct extending to the ampulla without intraluminal kristine ling defect. Central intrahepatic ducts do not appear distended. Gallbladder is opacified. CONCLUSION: ERCP as above. Gil Valente MD on October 27, 2017 at 11:26 Board Certified Radiologist. This report was verified electronically.
[2017-10-27] MEDS ORDERED: IOHEXOL 300 INJ 100 ML IV ONE (11:30)
[2017-10-27] MEDS ORDERED: PROPOFOL 200 MG/20 ML AMP IV ONE (12:00)
[2017-10-27] MEDS ORDERED: LIDOCAINE HCL 1% PF 5 ML SYRINGE OTHER ONE (12:00)
[2017-10-27] MEDS: MAGNESIUM OXIDE 400 MG TAB PO SCH (12:04)
--- NOTE | 2017-10-27 12:22 | MB ---
cc: JAMES PATEL MD DATE OF CONSULTATION: 10/27/2017 CHIEF COMPLAINT Abdominal pain, gallbladder wall thickening, common bile duct dilation. HISTORY OF PRESENT ILLNESS The patient is a 42-year-old female multiple medical issues, multiple admissions, a history of complaints of abdominal pain, pain is in multiple quadrants including; right lower quadrant left lower quadrant, left upper quadrant and occasionally on the right side as well. The patient states the pain was initially 9/10 currently it is 4/10 and is sharp, radiation somewhat diffusely and it is intermittent. She also has associated vomiting and nausea. She has had is intermittent bouts of this and has had a further workup including HIDA scan which was reviewed and is normal in the past and is unable to get an MRCP due to recent pacemaker. She had ultrasound while here, this admission showed a gallbladder with some thickening and dilated common bile duct of 11 mm without any stones. Therefore surgery was consulted. PAST MEDICAL HISTORY: 1. Anxiety 2. Depression 3. bipolar 4. hypokinemia 5. adrenal insufficiency 6. kidney disease 7. Crohn disease 8. chronic pain 9. seizure disorder 10. Gastroparesis 11. <<2:10>> PAST SURGICAL HISTORY 1. Appendectomy 2. Right port placement 3. Partial hysterectomy 4. Dental extraction. MEDICATIONS See EMR. ALLERGIES CEPHALEXIN GABAPENTIN KETOROLAC PENICILLIN G <<2:32>> PROMETHAZINE FAMILY HISTORY Denies diabetes or hypertension. SOCIAL HISTORY Denies smoking, EtOH or IVDA. REVIEW OF SYSTEMS GENERAL: Complains of fatigue and weight loss. HEAD, EYES, EARS, NOSE, AND THROAT: Denies eye pain, ear pain. NECK: Denies swelling or pain. LUNGS: Denies cough, wheeze. HEART: Denies palpitation or chest pain. ABDOMEN: Complains of nausea, constipation, abdominal pain. GENITOURINARY: Denies dysuria, hematuria. ENDOCRINE: Endocrine denies polyuria, polydipsia. PSYCHIATRIC: Appropriate mood, anxiety. EXTREMITIES: Denies arthralgia, myalgias. PHYSICAL EXAMINATION GENERAL: The patient in no acute distress. VITAL SIGNS: Temperature 98.4, pulse 79, respirations 21, blood pressure 127/74, saturation 98%. HEAD, EYES, EARS, NOSE, AND THROAT: Pupils equal round reactive. NECK: Supple. Trachea midline. LUNGS: Bilateral expansion. Clear. HEART: Heart rate S1-S2, pacer in place. Well-healed right port, in placed. ABDOMEN: Soft, positive tenderness to palpation multiple quadrants. No rebound. Minimal pain to right upper quadrant. EXTREMITIES: Warm, well-perfused. NEUROLOGIC: GCS of 15, 5/5 motor all extremities. INTEGUMENT: No obvious masses or lesions,. L PSYCHIATRIC: Anxiety appropriate mood. LABORATORY AND DIAGNOSTIC DATA Reviewed on 10-25-1017 WBC 6.5, hemoglobin 8.3, hematocrit 26.5, platelets 194, sodium 139, potassium 3.8, chloride 107, BUN 1.3, correction BUN 23, creatinine 1.3, AST, ALT on the , 15 T bili 0.2, alk phos 58. IMAGING STUDIES Reviewed by myself. ABDOMINAL ULTRASOUND Dilation, bile duct 11 mm prominence of bile duct. No obstructing stone gallbladder wall thickening, pericholecystic fluid. No stones or sludge. ASSESSMENT The patient multiple medical issues 42-year-old female presents with diffuse acute pain. PLAN After full clinical radiologic laboratory workup the patient with above-named issues. At this point ideally We would obtain MRCP however, the patient has a recent pacer which she has been unable to undergo MRCP, therefore, I recommend undergoing ERCP her bilirubin is normal. However, we do not have labs for today. I will also check a full set of labs and will discuss with GI regarding the need for ERCP. My concern would be the patient could have a dilation of bile duct and there is uncertain etiology at this time further I question whether the patient has choledochocele that could developed. Again I recommend endoscopic retrograde cholangiopancreatography and evaluation from GI. Will await their further recommendations and findings, nonoperative management at this time. We will continue to observe. MD JESÚS Levine/che /11:54 PM /11:19 AM
[2017-10-27 15:24] LABS: AUTOMATED NEUTROPHIL # 4.8 TH/MM3 (1.8-7.7); BASOPHIL % 0.4 % (0.0-2.0); EOSINOPHIL # 0.2 TH/MM3 (0-0.4); EOSINOPHIL % 2.6 % (0.0-4.0); HEMATOCRIT 25.2 % (35.0-46.0); HEMOGLOBIN 8.1 GM/DL (11.6-15.3); LYMPH % 16.2 % (9.0-44.0); LYMPHOCYTE # 1.1 TH/MM3 (1.0-4.8); MEAN CELL VOLUME 79.1 FL (80.0-100.0); MEAN CORPUSCULAR HEMOGLOBIN 25.3 PG (27.0-34.0); MEAN PLATELET VOLUME 7.5 FL (7.0-11.0); MONO % 9.2 % (0.0-8.0); MONOCYTE # 0.6 TH/MM3 (0-0.9); NEUT % 71.6 % (16.0-70.0); PLATELET COUNT 175 TH/MM3 (150-450); RED BLOOD COUNT 3.19 MIL/MM3 (4.00-5.30); RED CELL DISTRIBUTION WIDTH 15.8 % (11.6-17.2); WHITE BLOOD COUNT 6.7 TH/MM3 (4.0-11.0)
--- NOTE | 2017-10-27 15:34 | HHI.PR ---
cc: Maximiliano Mott MD Subjective Subjective Notes s/p ercp with in normal limits, no evidence of mass or choledochocele, pt on diet with similar diffuse pain, +bms Objective Vitals/I&O Vital Signs Date Time Temp Pulse Resp B/P (MAP) Pulse Ox O2 Delivery O2 Flow Rate FiO2 10/27/17 13:06 98.1 74 18 115/68 (84) 96 10/24/17 01:34 Room Air Labs Laboratory Tests Test 10/27/17 15:06 10/27/17 15:16 White Blood Count 6.7 Red Blood Count 3.19 Hemoglobin 8.1 Hematocrit 25.2 Mean Corpuscular Volume 79.1 Mean Corpuscular Hemoglobin 25.3 Mean Corpuscular Hemoglobin Concent 32.0 Red Cell Distribution Width 15.8 Platelet Count 175 Mean Platelet Volume 7.5 Neutrophils (%) (Auto) 71.6 Lymphocytes (%) (Auto) 16.2 Monocytes (%) (Auto) 9.2 Eosinophils (%) (Auto) 2.6 Basophils (%) (Auto) 0.4 Neutrophils # (Auto) 4.8 Lymphocytes # (Auto) 1.1 Monocytes # (Auto) 0.6 Eosinophils # (Auto) 0.2 Basophils # (Auto) 0.0 CBC Comment DIFF FINAL Differential Comment Abdomen: Other (soft +ttp diffuse, all quadrants, no rebound) A/P Assessment and Plan abdominal pain dilated CBD normal on ERCP, multiple medical issues, PLAN Reg diet oob pain control bowel regimen will continue to follow nonoperative mgnt at this time Maximiliano Mott MD Oct 27, 2017 15:34
[2017-10-27 15:54] LABS: ALBUMIN 2.6 GM/DL (3.4-5.0); ALT (GPT) 10 U/L (10-53); AST (GOT) 16 U/L (15-37); BICARBONATE 28.6 MEQ/L (21.0-32.0); BLOOD UREA NITROGEN 14 MG/DL (7-18); CALCIUM 7.9 MG/DL (8.5-10.1); CHLORIDE 106 MEQ/L (98-107); CREATININE 0.92 MG/DL (0.50-1.00); GLOMERULAR FILTRATION RATE 67 ML/MIN (>89); GLUCOSE,RANDOM 101 MG/DL (74-106); SODIUM (NA) 139 MEQ/L (136-145)
[2017-10-27 15:55] LABS: ALKALINE PHOSPHATASE 55 U/L (45-117); TOTAL BILIRUBIN ADULT 0.2 MG/DL (0.2-1.0); TOTAL PROTEIN 5.2 GM/DL (6.4-8.2)
[2017-10-27] MEDS: ONDANSETRON HCL 4 MG/2 ML VIAL IVP PRN (20:22)
[2017-10-28] MEDS: MORPHINE SULFATE 15 MG CONTROLLED RELEASE TAB PO SCH ×2 (02:06→10:09)
[2017-10-28 04:10] VITALS: BP 101/58; PULSE 71; RESP 18; TEMP 98.4; O2SAT 98
[2017-10-28] MEDS: METHOCARBAMOL 500 MG TAB PO SCH ×2 (04:22→11:11)
[2017-10-28] MEDS: LEVOTHYROXINE SODIUM 125 MCG TAB PO SCH (06:14)
[2017-10-28] MEDS: SODIUM CHLOR 0.9% 1000 ML INJ 1,000 ML IV SCH ×2 (06:15→08:50)
[2017-10-28 08:03] VITALS: BP 112/63; PULSE 74; RESP 18; TEMP 98; O2SAT 97
[2017-10-28] MEDS ORDERED: POTASSIUM CHLORIDE 25 MEQ EFFERVESCENT TAB PO ONE ×2 (08:45→11:30)
[2017-10-28] MEDS: DOCUSATE SODIUM 50 MG/SENNA 8.6 MG TAB PO SCH (08:47)
[2017-10-28] MEDS: SPIRONOLACTONE 25 MG TAB PO SCH (08:47)
[2017-10-28] MEDS: MAGNESIUM OXIDE 400 MG TAB PO SCH (08:47)
[2017-10-28] MEDS: predniSONE 20 MG TAB PO SCH (08:47)
[2017-10-28] MEDS: PANTOPRAZOLE SOD 40 MG DELAYED RELEASE TAB PO SCH (08:47)
[2017-10-28] MEDS: DIAZEPAM 10 MG TAB PO PRN (08:48)
[2017-10-28] MEDS: FERROUS SULFATE 325 MG (65 MG ELEMENTAL IRON) TAB PO SCH (08:48)
[2017-10-28] MEDS: HEPARIN SODIUM - SQ 10,000 UNITS/ML VIAL SQ SCH (08:49)
[2017-10-28] MEDS: SODIUM CHLORIDE 0.9% FLUSH 10 ML FLUSH IV FLUSH SCH (08:49)
[2017-10-28] MEDS: POTASSIUM CHLORIDE 20 MEQ CONTROLLED RELEASE TAB PO SCH ×2 (08:49→12:43)
[2017-10-28 10:57] LABS: MAGNESIUM 1.4 MG/DL (1.5-2.5)
[2017-10-28] MEDS ORDERED: METH500T3 PO (11:24)
[2017-10-28] MEDS ORDERED: PANT40TA3 PO (11:24)
[2017-10-28] MEDS ORDERED: MAGN400T2 PO (11:24)
--- NOTE | 2017-10-28 11:27 | HHI.DS ---
Discharge Summary Admission Date Oct 24, 2017 at 01:18 Discharge Date: Oct 28, 2017 Admitting Diagnosis intractable pain, lupus, renal insufficiency, (1) Intractable abdominal pain ICD Code: R10.9 - Unspecified abdominal pain Diagnosis: Principal Status: Acute (2) Hypokalemia ICD Code: E87.6 - Hypokalemia Diagnosis: Principal Status: Chronic Procedures See hospital course Brief History - From Admission This is a 42-year-old female history of lupus, Crohn's disease, renal insufficiency, Brugada status post AICD placement, history of gastroparesis, chronic pain, anxiety disorder who presented with bilateral lower back pain and abdominal pain. Patient stated that her back pain started 3 days ago in which it radiated to her groin and lower abdomen area. Pain described as constant, 10 out of 10, nothing makes it better or worse. Patient stated this is different from her chronic pain. She said that her chronic pain is more generalized. She had episode of emesis 2 days ago that was described as green. No recent episodes of emesis. She has been constipated about 2 days ago. Denies any fevers or chills. All other review of system reviewed and negative. CBC/BMP: 10/27/17 1506 10/28/17 1030 Significant Findings Laboratory Tests Test 10/27/17 15:06 10/27/17 15:16 10/28/17 10:30 Red Blood Count 3.19 MIL/MM3 (4.00-5.30) Hemoglobin 8.1 GM/DL (11.6-15.3) Hematocrit 25.2 % (35.0-46.0) Mean Corpuscular Volume 79.1 FL (80.0-100.0) Mean Corpuscular Hemoglobin 25.3 PG (27.0-34.0) Neutrophils (%) (Auto) 71.6 % (16.0-70.0) Monocytes (%) (Auto) 9.2 % (0.0-8.0) Total Protein 5.2 GM/DL (6.4-8.2) Albumin 2.6 GM/DL (3.4-5.0) Calcium Level 7.9 MG/DL (8.5-10.1) Potassium Level 3.0 MEQ/L (3.5-5.1) 3.3 MEQ/L (3.5-5.1) Anion Gap 4 MEQ/L (5-15) Estimat Glomerular Filtration Rate 67 ML/MIN (>89) Magnesium Level 1.4 MG/DL (1.5-2.5) Imaging Last Impressions GI Procedure 10/27/17 0000 Signed Impressions: Service Date/Time: Friday, October 27, 2017 11:09 - CONCLUSION: ERCP as above. Gil Valente MD Pelvis Ultrasound 10/25/17 0000 Signed Impressions: Service Date/Time: Wednesday, October 25, 2017 13:52 - CONCLUSION: 1. Unremarkable ultrasound examination of the pelvis. 2. Small left ovarian cysts , within normal limits. 3. Otherwise, normal appearing ovaries with normal blood flow at this time. Gil Valente MD Abdomen X-Ray 10/24/17 0000 Signed Impressions: Service Date/Time: Tuesday, October 24, 2017 10:41 - CONCLUSION: Normal examination. Moderate stool throughout the colon. Feliz Leung MD Abdomen Ultrasound 10/24/17 0000 Signed Impressions: Service Date/Time: Tuesday, October 24, 2017 10:49 - CONCLUSION: 1. Dilatation of the common bile duct. This now measures 11 mm in size. There is also prominence to the bile ducts within the region of the hussein hepatis. This is a new finding from the prior exams. No obstructing stone or lesion observed. 2. Distention of the gallbladder with gallbladder wall thickening and pericholecystic fluid without stones or sludge. I cannot exclude acalculous cholecystitis. Vic Williamson Jr., MD PE at Discharge GENERAL: in NAD and sitting in bed very comfortably CARDIOVASCULAR: Regular rate and rhythm without murmurs, gallops, or rubs. RESPIRATORY: Breath sounds equal bilaterally. No accessory muscle use. GASTROINTESTINAL: Abdomen soft, non-tender, nondistended. MUSCULOSKELETAL: No cyanosis, or edema. + TTP of the lower abdomen that's mild. Negative for any peritoneal signs. BACK: Nontender without obvious deformity. No CVA tenderness. Pt update on day of discharge Follow-up for chronic abdominal pain Abdominal pain is in lower abdomen but this is the same and there is improvement. patient shows no signs of pain clinically. No nausea or vomiting witness and patient able to tolerate oral intake. She is asking for refills on her pain medication, Valium, magnesium, Protonix. Otherwise she has no complaints. She remains afebrile. Discussed case with patient's nurse. Patient was given 50 mEq of potassium this morning and a repeat potassium done which was 3.3. She also magnesium done which was 1.4. Order was placed to give K25 mEq and magnesium 2 g then patient could be discharge. Hospital Course 42 F with extensive medical history who presented with lower back pain and abdominal pain Abdominal pain/lower back pain -Both types of pain seem to be associated with each other. It seems more that her lower back pain is causing her abdominal pain. Patient did have episode of emesis but throughout her hospital course to has been no episodes of emesis. Imaging obtained in the ED. Lipase 58. -Abdominal ultrasound showed ? acalculous cholecystitis and CBD dilation so GI consult placed. -GI stated that since patient had a recent AICD unable to do MRCP. General surgeon consulted for possible surgery and they recommend ERCP sore ear WBC was done with IR which was negative. General surgery stated to continue with medical management and nonoperative treatment. -Pain was not in the right upper quadrant and I really do not think that this was the cause of her pain. Patient seems to have more a chronic pain syndrome and clinically she showed no sign of pain during her hospitalization. Anemia -Stable. Per GI continue to monitor. Her current regimen. Renal insufficiency -This has been a chronic problem secondary to lupus. 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 -She was given IV fluids with improvement of her creatinine in which her creatinine went back to normal. She could urine output dropped the hospital course. Chronic pain syndrome -Continue home medication. -Patient told that for all her controlled substance she must get the refill by the provider that prescribing for her. Hypokalemia/hypermagnesium -Replaced as needed. She is on home magnesium potassium. Brugada status post AICD/Crohn's/lupus/anxiety -Continue home medication. Pt Condition on Discharge: Good Discharge Disposition: Discharge Home Discharge Time: > 30 minutes Discharge Instructions DIET: Follow Instructions for: Heart Healthy Diet Activities you can perform: Regular-No Restrictions Follow up Referrals: Gastroenterology - 2 Weeks with Kylie Soliz MD PCP Follow-up - 1 Week Surgical - 2 Weeks with Maximiliano Mott MD New Medications: Methocarbamol (Methocarbamol) 500 Mg Tab 500 MG PO Q8H for muscle spasm, #30 TAB 0 Refills Continued Medications: Cholecalciferol (Vitamin D3) 10,000 Unit Cap 57336 UNITS PO Q3D @ HS for Nutritional Supplement, #1 BOTTLE 0 Refills Diazepam (Valium) 10 Mg Tab 10 MG PO TID PRN for muscle spasm, #4 TAB 0 Refills Ferrous Sulfate (Ferrous Sulfate) 325 Mg (65 Mg Iron) Tablet 325 MG PO BIDPC for Nutritional Supplement, #60 TAB 0 Refills Levothyroxine (Levothyroxine) 125 Mcg Tab 125 MCG PO DAILY for Thyroid, #30 TAB 0 Refills Magnesium Oxide (Magnesium Oxide) 400 Mg Tab 400 MG PO DAILY for Nutritional Supplement, #30 TAB 0 Refills (This prescription has been renewed) Morphine ER (Ms Contin) 15 Mg Tab 30 MG PO Q8H for Pain Management, TAB 0 Refills Pantoprazole (Pantoprazole) 40 Mg Tab 40 MG PO HS for Reflux, #30 TAB 0 Refills (This prescription has been renewed) Potassium Chloride ER (Potassium Chloride ER) 20 Meq Tab 40 MEQ PO TID for Electrolyte Replacement, #90 TAB 0 Refills Prednisone (Prednisone) 20 Mg Tab 40 MG PO DAILY for Control Inflammation, #25 TAB 0 Refills Take 40mg (2 tabs) daily x7 days, then 20mg (1 tab) daily x7 days, then 10mg (1/2 tab) daily x7days, then stop. Spironolactone (Spironolactone) 25 Mg Tab 25 MG PO DAILY, #30 TAB 0 Refills Annette Marcelo MD Oct 28, 2017 11:27
--- NOTE | 2017-10-28 11:27 | HHI.DCPOC ---
Discharge Care Plan Diagnosis: (1) Hypokalemia (2) Abdominal pain Goals to Promote Your Health * To prevent worsening of your condition and complications * To maintain your health at the optimal level Directions to Meet Your Goals Take your medications as prescribed Follow your dietary instruction Follow activity as directed Keep your appointments as scheduled Take your immunizations and boosters as scheduled If your symptoms worsen call your PCP, if no PCP go to Urgent Care Center or Emergency Room Smoking is Dangerous to Your Health. Avoid second hand smoke Call the 24-hour hour crisis hotline for domestic abuse at Annette Marcelo MD Oct 28, 2017 11:27
[2017-10-28] MEDS: MAGNESIUM SULFATE 1 GM PREMIX 100 ML IV SCH ×2 (11:30→12:41)
[2017-10-28 12:19] VITALS: BP 92/54; PULSE 71; RESP 16; TEMP 98.1; O2SAT 98
== END 2017-10-28 15:04 | disposition home or self-care (01) ==
LOC: NEPE 20:29 → NEDA 10-24 01:18 → NEPHCDU 10-24 01:44
PROVIDERS: ADMIT Family Medicine; ATTEND Family Medicine
DX: E87.6 Hypokalemia (principal); K83.8 Other specified diseases of biliary tract; M32.9 Systemic lupus erythematosus, unspecified; I12.9 Hypertensive chronic kidney disease with stage 1 through stage 4 chronic kidney disease, or unspecified chronic kidney disease; N18.9 Chronic kidney disease, unspecified; M54.5 Low back pain; G89.4 Chronic pain syndrome; D64.9 Anemia, unspecified; E83.41 Hypermagnesemia; R11.2 Nausea with vomiting, unspecified; K31.84 Gastroparesis; E03.9 Hypothyroidism, unspecified; K21.0 Gastro-esophageal reflux disease with esophagitis; K50.90 Crohn's disease, unspecified, without complications; I49.8 Other specified cardiac arrhythmias; G40.909 Epilepsy, unspecified, not intractable, without status epilepticus; K59.01 Slow transit constipation; G43.909 Migraine, unspecified, not intractable, without status migrainosus; Z87.442 Personal history of urinary calculi; Z95.810 Presence of automatic (implantable) cardiac defibrillator; Z87.440 Personal history of urinary (tract) infections
CPT/HCPCS: 00810; 43260; 74000; 74330; 76700; 76856; 80048; 80053; 81001; 83690; 83735; 84132; 85018; 85025; 85027; 85610; 85652; 85730; 86140; 93005; 93975; 96361; 96365; 96372; 96375; 96376; 99285; C1769; G0378; J1170; J1642; J1644; J2405; J3475; J7030; J7040; J7512

== ENCOUNTER 2017-11-15 14:38 | Emergency (ER) | payer OTHER ==
[~2017-11-15] VITALS: Ht 175.3 cm; Wt 66.0 kg
[~2017-11-15 14:38] MED LIST changes: -CARA1TAB6 PO; -CLIN150C14 PO; -LEVA500T33 PO; +METH500T3 PO
[2017-11-15 14:39] VITALS: BP 157/79; PULSE 99; RESP 20; TEMP 99.7; O2SAT 100
[2017-11-15 15:59] LABS: AUTOMATED NEUTROPHIL # 4.3 TH/MM3 (1.8-7.7); BASOPHIL # 0.1 TH/MM3 (0-0.2); BASOPHIL % 1.1 % (0.0-2.0); EOSINOPHIL # 0.1 TH/MM3 (0-0.4); EOSINOPHIL % 1.5 % (0.0-4.0); HEMATOCRIT 33.3 % (35.0-46.0); HEMOGLOBIN 10.3 GM/DL (11.6-15.3); LYMPH % 21.6 % (9.0-44.0); LYMPHOCYTE # 1.3 TH/MM3 (1.0-4.8); MEAN CELL VOLUME 76.4 FL (80.0-100.0); MEAN CORPUSCULAR HEMOGLOBIN 23.5 PG (27.0-34.0); MEAN CORPUSCULAR HGB CONC 30.8 % (32.0-36.0); MEAN PLATELET VOLUME 7.4 FL (7.0-11.0); MONOCYTE # 0.4 TH/MM3 (0-0.9); NEUT % 69.8 % (16.0-70.0); PLATELET COUNT 184 TH/MM3 (150-450); RED BLOOD COUNT 4.36 MIL/MM3 (4.00-5.30); RED CELL DISTRIBUTION WIDTH 16.9 % (11.6-17.2); WHITE BLOOD COUNT 6.1 TH/MM3 (4.0-11.0)
[2017-11-15 16:14] LABS: ALT (GPT) 15 U/L (10-53); AST (GOT) 14 U/L (15-37); BICARBONATE 28.1 MEQ/L (21.0-32.0); BLOOD UREA NITROGEN 18 MG/DL (7-18); CHLORIDE 110 MEQ/L (98-107); CREATININE 1.26 MG/DL (0.50-1.00); GLOMERULAR FILTRATION RATE 47 ML/MIN (>89); GLUCOSE,RANDOM 93 MG/DL (74-106); LIPASE 99 U/L (73-393); SODIUM (NA) 144 MEQ/L (136-145)
[2017-11-15 16:20] LABS: ALKALINE PHOSPHATASE 70 U/L (45-117); TOTAL BILIRUBIN ADULT 0.4 MG/DL (0.2-1.0); TOTAL PROTEIN 7.7 GM/DL (6.4-8.2)
[2017-11-15 17:08] VITALS: BP 135/87; PULSE 72; RESP 20; O2SAT 100
[2017-11-15] MEDS ORDERED: CYCL5TAB PO (17:41)
--- NOTE | 2017-11-15 17:41 | PD ---
HPI Chief Complaint: Abdominal Pain Time Seen by Provider: 17:14 Travel History International Travel<30 days: No Contact w/Intl Traveler<30days: No Traveled to known affect area: No History of Present Illness HPI This is a 42-year-old female with a history of lupus and a recently placed AICD who presents to the emergency department with involuntary spasms of her diaphragm that she describes. She says they've been going on for 2 days, constant, moderate severity, and she says she's never had anything like this before. She said she tried to take Benadryl but it didn't help. She says she can't take Compazine she can only take Zofran. PFSH Past Medical History Arthritis: No Asthma: No Atrial Fibrillation: No Autoimmune Disease: Yes (LUPUS ) Blood Disorders: No Bipolar Disorder: Yes Anxiety: Yes Depression: No Heart Rhythm Problems: No Cancer: Yes Cardiac Catheterization: No Cardiovascular Problems: Yes (pacemaker, brugada syndrome, HTN) High Cholesterol: No Chemotherapy: No Chest Pain: No Congestive Heart Failure: No COPD: No Cerebrovascular Accident: No Diabetes: No Diminished Hearing: No Endocrine: No Gastrointestinal Disorders: Yes (GASTROPARESIS, esophagitis) GERD: Yes Genitourinary: Yes (RECURRENT UTI'S, NEPHRITIS, kidney disease) Headaches: Yes Hiatal Hernia: No Heparin Induced Thrombocytopen: No Hypertension: No Immune Disorder: Yes (CROHN'S, SLE) Implanted Vascular Access Dvce: Yes (RIGHT SUBCLAVIAN PORT VAD) Kidney Stones: Yes Musculoskeletal: No Neurologic: Yes (EPILEPSY) Psychiatric: No Reproductive: No Respiratory: No Immunizations Current: Yes Migraines: Yes Myocardial Infarction: No Pneumonia: Yes Radiation Therapy: No Renal Failure: Yes Seizures: Yes (juvenile epilepsy) Sickle Cell Disease: No Sleep Apnea: No Thyroid Disease: Yes (HYPOTHYROIDISM) Ulcer: Yes PNEUMOCCOCAL Vaccine (Year): 3 ?: Not LMP: 11/13/17 : 2 Para: 1 Miscarriage: 1 : 0 Ectopic : Yes (AT 17 YEARS OF AGE) Ovarian Cysts: Yes Past Surgical History Abdominal Surgery: Yes (multiple Laps) AICD: Yes ([employer]) Appendectomy: Yes Arteriovenous Shunt: No Body Medical Devices: RIGHT SUBCLAVIAN PORT VAD, DEFIB/PACER PLACED X 3 WEEKS AGO Cardiac Surgery: Yes (AICD ) Coronary Artery Bypass Graft: No Ear Surgery: No Endocrine Surgery: Yes Eye Surgery: No Genitourinary Surgery: Yes (Interstitial cystitis) Gynecologic Surgery: Yes Hysterectomy: Yes Insulin Pump: No Joint Replacement: No Neurologic Surgery: No Oral Surgery: Yes (Removal of abscess) Pacemaker: No Thoracic Surgery: No Other Surgery: Yes (OVARIAN CYST/TUMOR REMOVED) Social History Alcohol Use: No Tobacco Use: No Substance Use: No Allergies-Medications (Allergen,Severity, Reaction): Coded Allergies: Fish Containing Products (Unverified Allergy, Severe, SWELLING IN THROAT, SOB, 11/15/17) cephalexin (Unverified Allergy, Severe, RASH,SWELLING, 11/15/17) ketorolac (Unverified Allergy, Severe, RASH, 11/15/17) penicillin G (Unverified Allergy, Severe, RASH,SWELLING, 11/15/17) prochlorperazine (Unverified Allergy, Mild, DYSTONIC REACTION, 11/15/17) promethazine (Unverified Allergy, Mild, DYSTONIC REACTION, 11/15/17) gabapentin (Unverified Adverse Reaction, Severe, SEIZURES, 11/15/17) Reported Meds & Prescriptions Reported Meds & Active Scripts Active Methocarbamol 500 Mg Tab 500 Mg PO Q8H Magnesium Oxide 400 Mg Tab 400 Mg PO DAILY Pantoprazole (Pantoprazole Sodium) 40 Mg Tab 40 Mg PO HS Valium (Diazepam) 10 Mg Tab 10 Mg PO TID PRN Levothyroxine (Levothyroxine Sodium) 125 Mcg Tab 125 Mcg PO DAILY Prednisone 20 Mg Tab 40 Mg PO DAILY Take 40mg (2 tabs) daily x7 days, then 20mg (1 tab) daily x7 days, then 10mg (1/2 tab) daily x7days, then stop. Potassium Chloride ER (Potassium Chloride) 20 Meq Tab 40 Meq PO TID Ferrous Sulfate 325 Mg (65 Mg Iron) Tablet 325 Mg PO BIDPC Vitamin D3 (Cholecalciferol) 10,000 Unit Cap 20,000 Units PO Q3D @ HS Reported Spironolactone 25 Mg Tab 25 Mg PO DAILY Ms Contin (Morphine Sulfate) 15 Mg Tab 30 Mg PO Q8H Review of Systems Except as stated in HPI: all other systems reviewed are Neg Physical Exam Narrative GENERAL:Well appearing, no acute distress SKIN: Focused skin assessment warm and dry. HEAD: Atraumatic. Normocephalic. EYES: Pupils equal and round. No injection or drainage. ENT: Moist mucous membranes NECK: Trachea midline. CARDIOVASCULAR: Regular rate and rhythm. No murmur appreciated. RESPIRATORY: Clear to auscultation. Breath sounds equal bilaterally. GASTROINTESTINAL: Abdomen soft, non-tender, nondistended. MUSCULOSKELETAL: No obvious deformities. NEUROLOGICAL: Awake and alert. No obvious cranial nerve deficits. Moving all extremities. PSYCHIATRIC: Appropriate mood and affect; insight and judgment normal. Data Data Last Documented VS Vital Signs Date Time Temp Pulse Resp B/P (MAP) Pulse Ox O2 Delivery O2 Flow Rate FiO2 11/15/17 17:08 72 20 135/87 (103) 100 Room Air 11/15/17 14:39 99.7 Orders Orders Complete Blood Count With Diff (11/15/17 15:05) Comprehensive Metabolic Panel (11/15/17 15:05) Lipase (11/15/17 15:05) Labs Laboratory Tests Test 11/15/17 15:30 White Blood Count 6.1 TH/MM3 Red Blood Count 4.36 MIL/MM3 Hemoglobin 10.3 GM/DL Hematocrit 33.3 % Mean Corpuscular Volume 76.4 FL Mean Corpuscular Hemoglobin 23.5 PG Mean Corpuscular Hemoglobin Concent 30.8 % Red Cell Distribution Width 16.9 % Platelet Count 184 TH/MM3 Mean Platelet Volume 7.4 FL Neutrophils (%) (Auto) 69.8 % Lymphocytes (%) (Auto) 21.6 % Monocytes (%) (Auto) 6.0 % Eosinophils (%) (Auto) 1.5 % Basophils (%) (Auto) 1.1 % Neutrophils # (Auto) 4.3 TH/MM3 Lymphocytes # (Auto) 1.3 TH/MM3 Monocytes # (Auto) 0.4 TH/MM3 Eosinophils # (Auto) 0.1 TH/MM3 Basophils # (Auto) 0.1 TH/MM3 CBC Comment DIFF FINAL Differential Comment Blood Urea Nitrogen 18 MG/DL Creatinine 1.26 MG/DL Random Glucose 93 MG/DL Total Protein 7.7 GM/DL Albumin 4.0 GM/DL Calcium Level 9.0 MG/DL Alkaline Phosphatase 70 U/L Aspartate Amino Transf (AST/SGOT) 14 U/L Alanine Aminotransferase (ALT/SGPT) 15 U/L Total Bilirubin 0.4 MG/DL Sodium Level 144 MEQ/L Potassium Level 4.1 MEQ/L Chloride Level 110 MEQ/L Carbon Dioxide Level 28.1 MEQ/L Anion Gap 6 MEQ/L Estimat Glomerular Filtration Rate 47 ML/MIN Lipase 99 U/L MDM Medical Decision Making Medical Screen Exam Complete: Yes Emergency Medical Condition: Yes Interpretation(s) electrolytes are reassuring Differential Diagnosis hiccups, electrolyte abnormality, muscle spasm Narrative Course This is a 42-year-old female who has a history of lupus who presents to the emergency department reporting involuntary spasms of her diaphragm. She did have a visit in early in October where she thought her AICD was causing spasms in her left chest and the description of her symptoms seem similar although she says this is never happened to her before. Labs are obtained and her electrolytes were reassuring. Patient says she can't take Reglan or Compazine which I think may help her symptoms. Patient will be prescribed low-dose Flexeril. Otherwise I think she can be discharged home and follow up with her primary care physician. Diagnosis Primary Impression: Muscle spasm Patient Instructions: General Instructions Additional Instructions: If you develop severe chest pain, shortness of breath, sweating, lightheadedness , dizziness or difficulty breathing return to the emergency department immediately. Followup with your primary care physician in 2-3 days if your symptoms are not resolved. Med/Other Pt SpecificInfo: Prescription(s) given Scripts Cyclobenzaprine (Flexeril) 5 Mg Tab 5 MG PO TID for Muscle Spasm, #15 TAB 0 Refills Prov: Ramona Wick MD 11/15/17 Disposition: 01 DISCHARGE HOME Condition: Stable Ramona Wick MD Nov 15, 2017 17:41
== END 2017-11-15 18:07 | disposition home or self-care (01) ==
LOC: NEPD 14:38
DX: M62.838 Other muscle spasm (principal); I10 Essential (primary) hypertension; E03.9 Hypothyroidism, unspecified; K50.90 Crohn's disease, unspecified, without complications; M32.9 Systemic lupus erythematosus, unspecified
CPT/HCPCS: 80053; 83690; 85025; 99283

== ENCOUNTER 2018-01-06 01:46 | Emergency (ER) | payer OTHER ==
[~2018-01-06] VITALS: Ht 175.3 cm; Wt 68.0 kg
[~2018-01-06 01:46] MED LIST changes: +CYCL5TAB PO
[2018-01-06 01:55] VITALS: BP 179/96; PULSE 98; RESP 18; O2SAT 100
[2018-01-06] MEDS ORDERED: SODIUM CHLORIDE 0.9% FLUSH 10 ML FLUSH IVF PRN (02:00)
[2018-01-06 02:02] VITALS: BP_SYST 164; BP_SYST 167; BP_DIAS 94; BP_DIAS 96; PULSE 96; RESP 16; TEMP 99.3; O2SAT 100
[2018-01-06 02:03] VITALS: O2SAT 100
[2018-01-06 02:13] LABS: BASOPHIL % 0.7 % (0.0-2.0); EOSINOPHIL # 0.3 TH/MM3 (0-0.4); EOSINOPHIL % 4.7 % (0.0-4.0); HEMOGLOBIN 11.7 GM/DL (11.6-15.3); LYMPH % 23.7 % (9.0-44.0); LYMPHOCYTE # 1.5 TH/MM3 (1.0-4.8); MEAN CELL VOLUME 80.9 FL (80.0-100.0); MEAN CORPUSCULAR HEMOGLOBIN 26.3 PG (27.0-34.0); MEAN CORPUSCULAR HGB CONC 32.4 % (32.0-36.0); MEAN PLATELET VOLUME 7.9 FL (7.0-11.0); MONO % 7.7 % (0.0-8.0); MONOCYTE # 0.5 TH/MM3 (0-0.9); NEUT % 63.2 % (16.0-70.0); PLATELET COUNT 152 TH/MM3 (150-450); RED BLOOD COUNT 4.44 MIL/MM3 (4.00-5.30); RED CELL DISTRIBUTION WIDTH 22.5 % (11.6-17.2); WHITE BLOOD COUNT 6.3 TH/MM3 (4.0-11.0)
--- NOTE | 2018-01-06 02:13 | PD ---
HPI Chief Complaint: Anxiety Time Seen by Provider: 01:55 Travel History International Travel<30 days: No Contact w/Intl Traveler<30days: No Traveled to known affect area: No History of Present Illness HPI 42-year-old female presents by ambulance with feeling jittery all over and feels like her potassium is off. She states she has been off her anxiety medication as well. She states that she just had her pacemaker replaced about a week or [address] Cervantes as the wires had got misplaced. She states this was at [facility]. She denies any other specific complaints at this time. Location is all over. Severity is moderate. Quality is jittery. No SI PFSH Past Medical History Arthritis: No Asthma: No Atrial Fibrillation: No Autoimmune Disease: Yes (LUPUS ) Blood Disorders: No Bipolar Disorder: Yes Anxiety: Yes Depression: No Heart Rhythm Problems: No Cancer: Yes Cardiac Catheterization: No Cardiovascular Problems: Yes (pacemaker, brugada syndrome, HTN) High Cholesterol: No Chemotherapy: No Chest Pain: No Congestive Heart Failure: No COPD: No Cerebrovascular Accident: No Diabetes: No Diminished Hearing: No Endocrine: No Gastrointestinal Disorders: Yes (GASTROPARESIS, esophagitis) GERD: Yes Genitourinary: Yes (RECURRENT UTI'S, NEPHRITIS, kidney disease) Headaches: Yes Hiatal Hernia: No Heparin Induced Thrombocytopen: No Hypertension: No Immune Disorder: Yes (CROHN'S, SLE) Implanted Vascular Access Dvce: Yes (RIGHT SUBCLAVIAN PORT VAD) Kidney Stones: Yes Musculoskeletal: No Neurologic: Yes (EPILEPSY) Psychiatric: No Reproductive: No Respiratory: No Immunizations Current: Yes Migraines: Yes Myocardial Infarction: No Pneumonia: Yes Radiation Therapy: No Renal Failure: Yes Seizures: Yes (juvenile epilepsy) Sickle Cell Disease: No Sleep Apnea: No Thyroid Disease: Yes (HYPOTHYROIDISM) Ulcer: Yes Tetanus Vaccination: < 5 Years Influenza Vaccination: No PNEUMOCCOCAL Vaccine (Year): 3 ?: Not : 2 Para: 1 Miscarriage: 1 : 0 Ectopic : Yes (AT 17 YEARS OF AGE) Ovarian Cysts: Yes Past Surgical History Abdominal Surgery: Yes (multiple Laps) AICD: Yes ([employer]) Appendectomy: Yes Arteriovenous Shunt: No Body Medical Devices: RIGHT SUBCLAVIAN PORT VAD, DEFIB/PACER PLACED X 3 WEEKS AGO Cardiac Surgery: Yes (AICD ) Coronary Artery Bypass Graft: No Ear Surgery: No Endocrine Surgery: Yes Eye Surgery: No Genitourinary Surgery: Yes (Interstitial cystitis) Gynecologic Surgery: Yes Hysterectomy: Yes (PARTIAL HYSTERECTOMY) Insulin Pump: No Joint Replacement: No Neurologic Surgery: No Oral Surgery: Yes (Removal of abscess) Pacemaker: No Thoracic Surgery: No Other Surgery: Yes (OVARIAN CYST/TUMOR REMOVED) Social History Alcohol Use: No Tobacco Use: No Substance Use: No Allergies-Medications (Allergen,Severity, Reaction): Coded Allergies: Fish Containing Products (Unverified Allergy, Severe, SWELLING IN THROAT, SOB, 11/15/17) cephalexin (Unverified Allergy, Severe, RASH,SWELLING, 11/15/17) ketorolac (Unverified Allergy, Severe, RASH, 11/15/17) penicillin G (Unverified Allergy, Severe, RASH,SWELLING, 11/15/17) prochlorperazine (Unverified Allergy, Mild, DYSTONIC REACTION, 11/15/17) promethazine (Unverified Allergy, Mild, DYSTONIC REACTION, 11/15/17) gabapentin (Unverified Adverse Reaction, Severe, SEIZURES, 11/15/17) Reported Meds & Prescriptions Reported Meds & Active Scripts Active Flexeril (Cyclobenzaprine HCl) 5 Mg Tab 5 Mg PO TID Methocarbamol 500 Mg Tab 500 Mg PO Q8H Magnesium Oxide 400 Mg Tab 400 Mg PO DAILY Pantoprazole (Pantoprazole Sodium) 40 Mg Tab 40 Mg PO HS Valium (Diazepam) 10 Mg Tab 10 Mg PO TID PRN Levothyroxine (Levothyroxine Sodium) 125 Mcg Tab 125 Mcg PO DAILY Prednisone 20 Mg Tab 40 Mg PO DAILY Take 40mg (2 tabs) daily x7 days, then 20mg (1 tab) daily x7 days, then 10mg (1/2 tab) daily x7days, then stop. Potassium Chloride ER (Potassium Chloride) 20 Meq Tab 40 Meq PO TID Ferrous Sulfate 325 Mg (65 Mg Iron) Tablet 325 Mg PO BIDPC Vitamin D3 (Cholecalciferol) 10,000 Unit Cap 20,000 Units PO Q3D @ HS Reported Spironolactone 25 Mg Tab 25 Mg PO DAILY Ms Contin (Morphine Sulfate) 15 Mg Tab 30 Mg PO Q8H Review of Systems Except as stated in HPI: all other systems reviewed are Neg Physical Exam Narrative GENERAL: 42-year-old female in no apparent distress SKIN: Focused skin assessment warm/dry. HEAD: Atraumatic. Normocephalic. EYES: Pupils equal and round. No scleral icterus. No injection or drainage. ENT: No nasal bleeding or discharge. Mucous membranes pink and moist. NECK: Trachea midline. No JVD. CARDIOVASCULAR: Regular rate and rhythm. RESPIRATORY: No accessory muscle use. Clear to auscultation. Breath sounds equal bilaterally. GASTROINTESTINAL: Abdomen soft, non-tender, nondistended. MUSCULOSKELETAL: No obvious deformities. No clubbing. No cyanosis. No edema. NEUROLOGICAL: Awake and alert. No obvious cranial nerve deficits. Motor grossly within normal limits. Normal speech. Data Data Last Documented VS Vital Signs Date Time Temp Pulse Resp B/P (MAP) Pulse Ox O2 Delivery O2 Flow Rate FiO2 01/06/18 05:21 90 16 165/70 (101) 97 01/06/18 02:03 Room Air 01/06/18 02:02 99.3 Orders Orders Electrocardiogram (01/06/18 01:55) Ckmb (Isoenzyme) Profile (01/06/18 01:55) Complete Blood Count With Diff (01/06/18 01:55) Comprehensive Metabolic Panel (01/06/18 01:55) Magnesium (Mg) (01/06/18 01:55) Prothrombin Time / Inr (Pt) (01/06/18 01:55) Act Partial Throm Time (Ptt) (01/06/18 01:55) Troponin I (01/06/18 01:55) Lipase (01/06/18 01:55) Ecg Monitoring (01/06/18 01:55) Bilateral Bp Monitoring (01/06/18 01:55) Iv Access Insert/Monitor (01/06/18 01:55) Oximetry (01/06/18 01:55) Sodium Chloride 0.9% Flush (Ns Flush) (01/06/18 02:00) Chest, Pa & Lat (01/06/18 01:55) Sodium Chlor 0.9% 1000 Ml Inj (Ns 1000 M (01/06/18 02:45) Hydroxyzine Pamoate (Vistaril) (01/06/18 03:00) Ed Discharge Order (01/06/18 02:56) Diazepam (Valium) (01/06/18 05:15) Labs Laboratory Tests Test 01/06/18 02:05 White Blood Count 6.3 TH/MM3 Red Blood Count 4.44 MIL/MM3 Hemoglobin 11.7 GM/DL Hematocrit 36.0 % Mean Corpuscular Volume 80.9 FL Mean Corpuscular Hemoglobin 26.3 PG Mean Corpuscular Hemoglobin Concent 32.4 % Red Cell Distribution Width 22.5 % Platelet Count 152 TH/MM3 Mean Platelet Volume 7.9 FL Neutrophils (%) (Auto) 63.2 % Lymphocytes (%) (Auto) 23.7 % Monocytes (%) (Auto) 7.7 % Eosinophils (%) (Auto) 4.7 % Basophils (%) (Auto) 0.7 % Neutrophils # (Auto) 4.0 TH/MM3 Lymphocytes # (Auto) 1.5 TH/MM3 Monocytes # (Auto) 0.5 TH/MM3 Eosinophils # (Auto) 0.3 TH/MM3 Basophils # (Auto) 0.0 TH/MM3 CBC Comment DIFF FINAL Differential Comment Prothrombin Time 10.5 SEC Prothromb Time International Ratio 1.0 RATIO Activated Partial Thromboplast Time 26.4 SEC Blood Urea Nitrogen 29 MG/DL Creatinine 1.75 MG/DL Random Glucose 147 MG/DL Total Protein 7.5 GM/DL Albumin 4.1 GM/DL Calcium Level 8.6 MG/DL Magnesium Level 2.1 MG/DL Alkaline Phosphatase 59 U/L Aspartate Amino Transf (AST/SGOT) 28 U/L Alanine Aminotransferase (ALT/SGPT) 14 U/L Total Bilirubin 0.3 MG/DL Sodium Level 137 MEQ/L Potassium Level 4.4 MEQ/L Chloride Level 104 MEQ/L Carbon Dioxide Level 27.6 MEQ/L Anion Gap 5 MEQ/L Estimat Glomerular Filtration Rate 32 ML/MIN Total Creatine Kinase 83 U/L Troponin I LESS THAN 0.02 NG/ML Lipase 54 U/L MDM Medical Decision Making Medical Screen Exam Complete: Yes Emergency Medical Condition: Yes Medical Record Reviewed: Yes (Past history confirmed) Interpretation(s) CBC & BMP Diagram 01/06/18 02:05 Total Protein 7.5, Albumin 4.1, Calcium Level 8.6, Magnesium Level 2.1, Alkaline Phosphatase 59, Aspartate Amino Transf (AST/SGOT) 28, Alanine Aminotransferase (ALT/SGPT) 14, Total Bilirubin 0.3 Differential Diagnosis Musculoskeletal, hypokalemia, anemia, renal insufficiency, gastritis.... Narrative Course We will check blood work, EKG, chest x-ray and reevaluate ed workup with mild increase in creatinine from baseline, patient will be given Vistaril for jittery feeling patient states vistaril didn't help, will give one time dose of valium Patient denies any new complaints and states that they are feeling better after valium. all questions answered. Patient knows that follow up is incumbent on them and to return to the emergency room immediately if new or worsening symptoms develop. Patient given strict return precautions, vitals reviewed and are normal, agrees to further workup as an outpatient. Diagnosis Primary Impression: Renal insufficiency Additional Impression: Jittery feeling Patient Instructions: General Instructions Additional Instructions: follow with primary monday, return as needed Med/Other Pt SpecificInfo: No Change to Meds Disposition: 01 DISCHARGE HOME Condition: Stable Rae Smith MD Jan 06, 2018 02:13
[2018-01-06 02:23] LABS: PROTHROMBIN TIME - PATIENT 10.5 SEC (9.8-11.6)
[2018-01-06 02:35] LABS: ALBUMIN 4.1 GM/DL (3.4-5.0); ALT (GPT) 14 U/L (10-53); AST (GOT) 28 U/L (15-37); BICARBONATE 27.6 MEQ/L (21.0-32.0); BLOOD UREA NITROGEN 29 MG/DL (7-18); CALCIUM 8.6 MG/DL (8.5-10.1); CHLORIDE 104 MEQ/L (98-107); CREATININE 1.75 MG/DL (0.50-1.00); GLOMERULAR FILTRATION RATE 32 ML/MIN (>89); GLUCOSE,RANDOM 147 MG/DL (74-106); MAGNESIUM 2.1 MG/DL (1.5-2.5); SODIUM (NA) 137 MEQ/L (136-145)
[2018-01-06] MEDS ORDERED: SODIUM CHLOR 0.9% 1000 ML INJ 1,000 ML IV ONE (02:45)
[2018-01-06 02:48] LABS: ALKALINE PHOSPHATASE 59 U/L (45-117); TOTAL BILIRUBIN ADULT 0.3 MG/DL (0.2-1.0); TOTAL PROTEIN 7.5 GM/DL (6.4-8.2); TROPONIN I LESS THAN 0.02 NG/ML (0.02-0.05)
--- NOTE | 2018-01-06 02:50 | RADRPT ---
EXAM DATE/TIME: 01/06/2018 02:27 [facility] COMPARISON: No previous studies available for comparison. INDICATIONS : Anxiety chest pain from concerns over a newly replaced defibrillator. MEDICAL HISTORY : Lupus. Gastroesophageal reflux disease. Gastroparesis. Carcinoma uterine SURGICAL HISTORY : Appendectomy. Hysterectomy. [id number] placement and removal ENCOUNTER: Initial ACUITY: 1 week PAIN SCORE: 3/10 LOCATION: Bilateral chest FINDINGS: PA and lateral views of the chest demonstrate the lungs to be symmetrically aerated without evidence of mass, infiltrate or effusion. The cardiomediastinal contours are unremarkable. Osseous structure s are intact. The fibrillator proximal in the left chest with electrode anteriorly in the midline. CONCLUSION: The lungs are clear. No evidence pneumothorax. Vic Smith MD on January 06, 2018 at 2:48 Board Certified Radiologist. This report was verified electronically.
[2018-01-06] MEDS ORDERED: hydrOXYzine PAMOATE 25 MG CAP PO ONE (03:00)
[2018-01-06] MEDS ORDERED: DIAZEPAM 2 MG TAB PO ONE (05:15)
[2018-01-06 05:21] VITALS: BP 165/70
--- NOTE | 2018-01-06 08:59 | EKG ---
Date Performed: 01/06/2018 Time Performed: 01:57:12 PTAGE: 42 years EKG: Sinus rhythm WITH FIRST DEGREE AV BLOCK MODERATE INTRAVENTRICULAR CONDUCTION DELAY NONSPECIFIC ST & T-WAVE ABNORM ALITY ABNORMAL ECG PREVIOUS TRACING : 10/23/2017 21.57 DOCTOR: Feliz Leiva Interpretating Date/Time 01/06/2018 08:57:26
== END 2018-01-06 05:40 | disposition home or self-care (01) ==
LOC: NEPC 01:46
DX: N28.9 Disorder of kidney and ureter, unspecified (principal); R25.1 Tremor, unspecified; I44.0 Atrioventricular block, first degree; R94.31 Abnormal electrocardiogram [ECG] [EKG]; M32.9 Systemic lupus erythematosus, unspecified; F31.9 Bipolar disorder, unspecified; G40.909 Epilepsy, unspecified, not intractable, without status epilepticus; E03.9 Hypothyroidism, unspecified; Z87.19 Personal history of other diseases of the digestive system
CPT/HCPCS: 71046; 80053; 82550; 83690; 83735; 84484; 85025; 85610; 85730; 93005; 99285; J7030; Q0177

== ENCOUNTER 2018-01-12 19:38 | Emergency (ER) | payer OTHER ==
[~2018-01-12] VITALS: Ht 175.3 cm; Wt 63.5 kg
[2018-01-12 21:01] VITALS: BP 125/72; PULSE 77; RESP 16; TEMP 99.4; O2SAT 99
--- NOTE | 2018-01-12 23:07 | PD ---
HPI Chief Complaint: Allergic/Adverse Reaction Time Seen by Provider: 23:00 Travel History International Travel<30 days: No Contact w/Intl Traveler<30days: No Traveled to known affect area: No History of Present Illness HPI A 42-year-old female presents to the emergency department with a chief complaint of "muscle twitching". The patient states that this started 1 week ago when her doctor put her on 2 potassium sparing diuretics. She has had problems with low potassium due to her systemic lupus. The twitches are all over her body and are constant. She has had trouble sleeping because of them. There are no aggravating factors and the only thing that helps is Valium. She also has noticed blood in her stool for the past 3 days. The blood is in the stool and in the toilet, she says it is dark red. The patient reports that she' s been drinking an excessive amount of water, and continues to "feel dry" She complains of dry mouth and denies dysuria or hematuria. The patient has been sleeping about 2 hours for the past 2 weeks and also complains of pain at her incision site. She had an internal defibrillator placed 3 weeks ago for Brugada Syndrome. Modifying Factors: None Associated Signs & Symptoms: Muscle spasms after starting new diuretics, blood in the stools, intermittent epistaxis Risk Factors: History of low potassium, multiple medical issues PFSH Past Medical History Arthritis: No Asthma: No Atrial Fibrillation: No Autoimmune Disease: Yes (LUPUS ) Blood Disorders: No Bipolar Disorder: Yes Anxiety: Yes Depression: No Heart Rhythm Problems: No Cancer: Yes Cardiac Catheterization: No Cardiovascular Problems: Yes (pacemaker, brugada syndrome, HTN) High Cholesterol: No Chemotherapy: No Chest Pain: No Congestive Heart Failure: No COPD: No Cerebrovascular Accident: No Diabetes: No Diminished Hearing: No Endocrine: No Gastrointestinal Disorders: Yes (GASTROPARESIS, esophagitis) GERD: Yes Genitourinary: Yes (RECURRENT UTI'S, NEPHRITIS, kidney disease) Headaches: Yes Hiatal Hernia: No Heparin Induced Thrombocytopen: No Hypertension: No Immune Disorder: Yes (CROHN'S, SLE) Implanted Vascular Access Dvce: Yes (RIGHT SUBCLAVIAN PORT VAD) Kidney Stones: Yes Musculoskeletal: No Neurologic: Yes (EPILEPSY) Psychiatric: No Reproductive: No Respiratory: No Immunizations Current: Yes Migraines: Yes Myocardial Infarction: No Pneumonia: Yes Radiation Therapy: No Renal Failure: Yes Seizures: Yes (juvenile epilepsy) Sickle Cell Disease: No Sleep Apnea: No Thyroid Disease: Yes (HYPOTHYROIDISM) Ulcer: Yes PNEUMOCCOCAL Vaccine (Year): 3 ?: Not : 2 Para: 1 Miscarriage: 1 : 0 Ectopic : Yes (AT 17 YEARS OF AGE) Ovarian Cysts: Yes Past Surgical History Abdominal Surgery: Yes (multiple Laps) AICD: Yes (HandUp PBC) Appendectomy: Yes Arteriovenous Shunt: No Body Medical Devices: RIGHT SUBCLAVIAN PORT VAD, DEFIB/PACER PLACED X 3 WEEKS AGO Cardiac Surgery: Yes (AICD ) Coronary Artery Bypass Graft: No Ear Surgery: No Endocrine Surgery: Yes Eye Surgery: No Genitourinary Surgery: Yes (Interstitial cystitis) Gynecologic Surgery: Yes Hysterectomy: Yes (PARTIAL HYSTERECTOMY) Insulin Pump: No Joint Replacement: No Neurologic Surgery: No Oral Surgery: Yes (Removal of abscess) Pacemaker: No Thoracic Surgery: No Other Surgery: Yes (OVARIAN CYST/TUMOR REMOVED) Social History Alcohol Use: No Tobacco Use: No Substance Use: No Allergies-Medications (Allergen,Severity, Reaction): Coded Allergies: Fish Containing Products (Unverified Allergy, Severe, SWELLING IN THROAT, SOB, 01/12/18) cephalexin (Unverified Allergy, Severe, RASH,SWELLING, 01/12/18) ketorolac (Unverified Allergy, Severe, RASH, 01/12/18) penicillin G (Unverified Allergy, Severe, RASH,SWELLING, 01/12/18) prochlorperazine (Unverified Allergy, Mild, DYSTONIC REACTION, 01/12/18) promethazine (Unverified Allergy, Mild, DYSTONIC REACTION, 01/12/18) gabapentin (Unverified Adverse Reaction, Severe, SEIZURES, 01/12/18) Reported Meds & Prescriptions Reported Meds & Active Scripts Active Flexeril (Cyclobenzaprine HCl) 5 Mg Tab 5 Mg PO TID Methocarbamol 500 Mg Tab 500 Mg PO Q8H Magnesium Oxide 400 Mg Tab 400 Mg PO DAILY Pantoprazole (Pantoprazole Sodium) 40 Mg Tab 40 Mg PO HS Valium (Diazepam) 10 Mg Tab 10 Mg PO TID PRN Levothyroxine (Levothyroxine Sodium) 125 Mcg Tab 125 Mcg PO DAILY Prednisone 20 Mg Tab 40 Mg PO DAILY Take 40mg (2 tabs) daily x7 days, then 20mg (1 tab) daily x7 days, then 10mg (1/2 tab) daily x7days, then stop. Potassium Chloride ER (Potassium Chloride) 20 Meq Tab 40 Meq PO TID Ferrous Sulfate 325 Mg (65 Mg Iron) Tablet 325 Mg PO BIDPC Vitamin D3 (Cholecalciferol) 10,000 Unit Cap 20,000 Units PO Q3D @ HS Reported Spironolactone 25 Mg Tab 25 Mg PO DAILY Ms Contin (Morphine Sulfate) 15 Mg Tab 30 Mg PO Q8H Review of Systems Except as stated in HPI: all other systems reviewed are Neg General / Constitutional: No: Fever, Chills Eyes: No: Diploplia HENT: No: Lightheadedness Cardiovascular: No: Chest Pain or Discomfort, Diaphoresis Respiratory: No: Shortness of Breath Gastrointestinal: No: Nausea, Vomiting Genitourinary: No: Urgency, Dysuria, Hematuria Skin: No Rash Neurologic: Positive: Tremor Physical Exam Narrative GENERAL: Well-developed and well-nourished female who appears anxious, in mild distress, twitching, awake and oriented 3. SKIN: Warm and dry. The incision site is mildly tender to palpation, has mild erythema with no drainage HEAD: Normocephalic. EYES: No scleral icterus. No injection or drainage. NECK: Supple, trachea midline. No JVD or lymphadenopathy. CARDIOVASCULAR: Regular rate and rhythm without murmurs, gallops, or rubs. RESPIRATORY: Breath sounds equal bilaterally. No accessory muscle use. GASTROINTESTINAL: Abdomen soft, non-tender, nondistended. RECTAL EXAM: No masses or tenderness, stool is brown, Hemoccult positive. MUSCULOSKELETAL: No cyanosis, or edema. Diffuse body tremor. BACK: Nontender without obvious deformity. No CVA tenderness. NEUROLOGICAL: Awake and alert. Cranial nerves II through XII intact. Motor and sensory grossly within normal limits. Five out of 5 muscle strength in all muscle groups. Normal speech. Data Data Last Documented VS Vital Signs Date Time Temp Pulse Resp B/P (MAP) Pulse Ox O2 Delivery O2 Flow Rate FiO2 01/12/18 21:01 99.4 77 16 125/72 (89) 99 Orders Orders Complete Blood Count With Diff (01/12/18 23:06) Comprehensive Metabolic Panel (01/12/18 23:06) Prothrombin Time / Inr (Pt) (01/12/18 23:06) Act Partial Throm Time (Ptt) (01/12/18 23:06) Magnesium (Mg) (01/12/18 23:06) Diazepam (Valium) (01/13/18 01:45) Electrocardiogram (01/13/18 02:35) Chest, Single Ap (01/13/18 02:35) Ed Discharge Order (01/13/18 03:06) Labs Laboratory Tests Test 01/13/18 00:55 01/13/18 01:13 White Blood Count 9.1 TH/MM3 Red Blood Count 4.44 MIL/MM3 Hemoglobin 11.9 GM/DL Hematocrit 36.4 % Mean Corpuscular Volume 82.0 FL Mean Corpuscular Hemoglobin 26.7 PG Mean Corpuscular Hemoglobin Concent 32.6 % Red Cell Distribution Width 21.6 % Platelet Count 137 TH/MM3 Mean Platelet Volume 7.3 FL Neutrophils (%) (Auto) 71.0 % Lymphocytes (%) (Auto) 18.1 % Monocytes (%) (Auto) 7.3 % Eosinophils (%) (Auto) 2.6 % Basophils (%) (Auto) 1.0 % Neutrophils # (Auto) 6.5 TH/MM3 Lymphocytes # (Auto) 1.7 TH/MM3 Monocytes # (Auto) 0.7 TH/MM3 Eosinophils # (Auto) 0.2 TH/MM3 Basophils # (Auto) 0.1 TH/MM3 CBC Comment DIFF FINAL Differential Comment Blood Urea Nitrogen 24 MG/DL Creatinine 1.78 MG/DL Random Glucose 92 MG/DL Total Protein 7.3 GM/DL Albumin 4.1 GM/DL Calcium Level 9.0 MG/DL Magnesium Level 2.0 MG/DL Alkaline Phosphatase 62 U/L Aspartate Amino Transf (AST/SGOT) 14 U/L Alanine Aminotransferase (ALT/SGPT) 14 U/L Total Bilirubin 0.3 MG/DL Sodium Level 138 MEQ/L Potassium Level 3.8 MEQ/L Chloride Level 106 MEQ/L Carbon Dioxide Level 24.9 MEQ/L Anion Gap 7 MEQ/L Estimat Glomerular Filtration Rate 31 ML/MIN Prothrombin Time 11.4 SEC Prothromb Time International Ratio 1.1 RATIO Activated Partial Thromboplast Time 25.4 SEC MDM Medical Decision Making Medical Screen Exam Complete: Yes Emergency Medical Condition: Yes Medical Record Reviewed: Yes Interpretation(s) EKG shows sinus rhythm with a first-degree AV block and intraventricular conduction delay. Rate is [address] elevations or depressions. Last 24 hours Impressions Chest X-Ray 01/13/18 0235 Signed Impressions: Service Date/Time: Saturday, January 13, 2018 02:52 - CONCLUSION: No evidence of acute cardiopulmonary disease. Brian Arrieta MD Laboratory Tests Test 01/13/18 00:55 01/13/18 01:13 Mean Corpuscular Hemoglobin 26.7 PG (27.0-34.0) Red Cell Distribution Width 21.6 % (11.6-17.2) Platelet Count 137 TH/MM3 (150-450) Neutrophils (%) (Auto) 71.0 % (16.0-70.0) Blood Urea Nitrogen 24 MG/DL (7-18) Creatinine 1.78 MG/DL (0.50-1.00) Aspartate Amino Transf (AST/SGOT) 14 U/L (15-37) Estimat Glomerular Filtration Rate 31 ML/MIN (>89) Differential Diagnosis Medication side effect versus electrolyte abnormalities versus psychiatric issues/anxiety Narrative Course EKG did not show any acute dysrhythmias. Chest x-ray was fairly unremarkable. Her lab work did not show significant metabolic issues. This appears to be the same issues she had been seen for last week as well. She was given Valium and appears less tremulous. At this point, my plan would be to release her with follow-up to primary care physician. Return for any worsening in symptoms as needed. The plan has been discussed with her and she states understanding. [facility] Point of Care Internal Pos. & Neg. Controls: Passed Fecal Specimen Occult Blood: Positive Diagnosis Primary Impression: Muscle spasm Additional Instructions: Patient needs to discuss current medications with primary care physician. It is unclear whether symptoms are related to medication use. However, she should return for any worsening of symptoms as needed. Disposition: 01 DISCHARGE HOME Condition: Stable Tarun Nevarez MD Jan 12, 2018 23:07
[2018-01-13 01:06] LABS: AUTOMATED NEUTROPHIL # 6.5 TH/MM3 (1.8-7.7); BASOPHIL # 0.1 TH/MM3 (0-0.2); EOSINOPHIL # 0.2 TH/MM3 (0-0.4); EOSINOPHIL % 2.6 % (0.0-4.0); HEMATOCRIT 36.4 % (35.0-46.0); HEMOGLOBIN 11.9 GM/DL (11.6-15.3); LYMPH % 18.1 % (9.0-44.0); LYMPHOCYTE # 1.7 TH/MM3 (1.0-4.8); MEAN CORPUSCULAR HEMOGLOBIN 26.7 PG (27.0-34.0); MEAN CORPUSCULAR HGB CONC 32.6 % (32.0-36.0); MEAN PLATELET VOLUME 7.3 FL (7.0-11.0); MONO % 7.3 % (0.0-8.0); MONOCYTE # 0.7 TH/MM3 (0-0.9); PLATELET COUNT 137 TH/MM3 (150-450); RED BLOOD COUNT 4.44 MIL/MM3 (4.00-5.30); RED CELL DISTRIBUTION WIDTH 21.6 % (11.6-17.2); WHITE BLOOD COUNT 9.1 TH/MM3 (4.0-11.0)
[2018-01-13 01:21] LABS: ALBUMIN 4.1 GM/DL (3.4-5.0); ALT (GPT) 14 U/L (10-53); AST (GOT) 14 U/L (15-37); BICARBONATE 24.9 MEQ/L (21.0-32.0); BLOOD UREA NITROGEN 24 MG/DL (7-18); CHLORIDE 106 MEQ/L (98-107); CREATININE 1.78 MG/DL (0.50-1.00); GLOMERULAR FILTRATION RATE 31 ML/MIN (>89); GLUCOSE,RANDOM 92 MG/DL (74-106); SODIUM (NA) 138 MEQ/L (136-145)
[2018-01-13 01:24] LABS: ALKALINE PHOSPHATASE 62 U/L (45-117); TOTAL BILIRUBIN ADULT 0.3 MG/DL (0.2-1.0); TOTAL PROTEIN 7.3 GM/DL (6.4-8.2)
[2018-01-13 01:33] LABS: INTERNATIONAL NORMALIZED RATIO 1.1 RATIO; PROTHROMBIN TIME - PATIENT 11.4 SEC (9.8-11.6)
[2018-01-13] MEDS ORDERED: DIAZEPAM 2 MG TAB PO ONE (01:45)
--- NOTE | 2018-01-13 03:03 | RADRPT ---
EXAM DATE/TIME: 01/13/2018 02:52 [facility] COMPARISON: CHEST PA & LAT, January 06, 2018, 2:27. INDICATIONS : Chest discomfort. MEDICAL HISTORY : None. SURGICAL HISTORY : Pacemaker. ENCOUNTER: Initial ACUITY: 1 day PAIN SCORE: 6/10 LOCATION: Bilateral chest FINDINGS: A single view of the chest demonstrates the lungs to be symmetrically aerated without evidence of mas s, infiltrate or effusion. The cardiomediastinal contours are unremarkable. Osseous structures are intact. Left lateral chest wall cardiac pacer with a single right atrial lead again noted. CONCLUSION: No evidence of acute cardiopulmonary disease. Brian Arrieta MD on January 13, 2018 at 3:01 Board Certified Radiologist. This report was verified electronically.
--- NOTE | 2018-01-13 23:48 | EKG ---
Date Performed: 01/13/2018 Time Performed: 02:41:53 PTAGE: 42 years EKG: Sinus rhythm WITH FIRST DEGREE AV BLOCK INTRAVENTRICULAR CONDUCTION DELAY ABNORMAL ECG PREVIOUS TRACING : 01/13/2018 02.40 Since the prior tracing, there has been no significant kwong DOCTOR: Sharath English Interpretating Date/Time 01/13/2018 23:47:37
== END 2018-01-13 03:26 | disposition home or self-care (01) ==
LOC: NEPE 19:38
DX: M62.838 Other muscle spasm (principal); E03.9 Hypothyroidism, unspecified; K21.9 Gastro-esophageal reflux disease without esophagitis; K92.1 Melena
CPT/HCPCS: 71045; 80053; 83735; 85025; 85610; 85730; 93005; 99285

== ENCOUNTER 2018-01-17 22:14 | Inpatient (IN) | payer OTHER ==
[~2018-01-17] VITALS: Ht 175.3 cm; Wt 70.5 kg
[2018-01-17 22:22] VITALS: BP 112/51; PULSE 51; RESP 16; TEMP 98.5
[2018-01-17] MEDS ORDERED: SODIUM CHLOR 0.9% 1000 ML INJ 1,000 ML IV ONE (22:31)
--- NOTE | 2018-01-17 22:36 | PD ---
HPI Chief Complaint: syncope Time Seen by Provider: 22:22 Travel History International Travel<30 days: No Contact w/Intl Traveler<30days: No History of Present Illness HPI The patient's 42 years old and arrives to the ER by EMS with a complaint of syncope multiple times today. Typically happens when she stands upright. She describes retrosternal chest pain which she believes is related to the placement of automatic internal cardiac defibrillator. Patient also describes a sensation of head pressure and head fullness. This also seems to correlate with the episodes of syncope. No vomiting or fever. No shortness of breath. Patient has a history of Brugada syndrome which required the AICD placed [address] Cervantes. History Past Medical History PNEUMOCCOCAL Vaccine (Year): 3 : 2 Para: 1 Social History Alcohol Use: No Tobacco Use: No Allergies-Medications (Allergen,Severity, Reaction): Coded Allergies: Fish Containing Products (Unverified Allergy, Severe, SWELLING IN THROAT, SOB, 01/12/18) cephalexin (Unverified Allergy, Severe, RASH,SWELLING, 01/12/18) ketorolac (Unverified Allergy, Severe, RASH, 01/12/18) penicillin G (Unverified Allergy, Severe, RASH,SWELLING, 01/12/18) prochlorperazine (Unverified Allergy, Mild, DYSTONIC REACTION, 01/12/18) promethazine (Unverified Allergy, Mild, DYSTONIC REACTION, 01/12/18) gabapentin (Unverified Adverse Reaction, Severe, SEIZURES, 01/12/18) Reported Meds & Prescriptions Reported Meds & Active Scripts Active Methocarbamol 500 Mg Tab 500 Mg PO Q8H Magnesium Oxide 400 Mg Tab 400 Mg PO DAILY Pantoprazole (Pantoprazole Sodium) 40 Mg Tab 40 Mg PO HS Valium (Diazepam) 10 Mg Tab 10 Mg PO TID PRN Levothyroxine (Levothyroxine Sodium) 125 Mcg Tab 125 Mcg PO DAILY Prednisone 20 Mg Tab 40 Mg PO DAILY Take 40mg (2 tabs) daily x7 days, then 20mg (1 tab) daily x7 days, then 10mg (1/2 tab) daily x7days, then stop. Potassium Chloride ER (Potassium Chloride) 20 Meq Tab 40 Meq PO TID Ferrous Sulfate 325 Mg (65 Mg Iron) Tablet 325 Mg PO BIDPC Vitamin D3 (Cholecalciferol) 10,000 Unit Cap 20,000 Units PO Q3D @ HS Reported K-Phos (Potassium Phosphate Monobasic) 500 Mg Tab 500 Mg PO PCHS Spironolactone 25 Mg Tab 25 Mg PO DAILY Ms Contin (Morphine Sulfate) 15 Mg Tab 30 Mg PO Q8H Review of Systems Except as stated in HPI: all other systems reviewed are Neg General / Constitutional: No: Fever Physical Exam Narrative GENERAL: 42-year-old female well-nourished well-developed mild to moderate distress Vital Signs Date Time Temp Pulse Resp B/P (MAP) Pulse Ox O2 Delivery O2 Flow Rate FiO2 01/17/18 22:59 55 16 100 Room Air 01/17/18 22:55 16 100 Room Air 01/17/18 22:22 98.5 51 16 112/51 (71) SKIN: Warm and dry. Along the upper epigastrium just distal to the xiphoid process there is a 2 cm linear well-healed and surgical scar. HEAD: Atraumatic. Normocephalic. EYES: Pupils equal and round. No scleral icterus. No injection or drainage. ENT: No nasal bleeding or discharge. Mucous membranes pink and moist. NECK: Trachea midline. No JVD. CARDIOVASCULAR: Irregular pulse. Rate about 60. L anterior chest wall AICD. RESPIRATORY: No accessory muscle use. Clear to auscultation. Breath sounds equal bilaterally. GASTROINTESTINAL: Abdomen soft, non-tender, nondistended. Hepatic and splenic margins not palpable. MUSCULOSKELETAL: Extremities without clubbing, cyanosis, or edema. No obvious deformities. NEUROLOGICAL: Awake and alert. No obvious cranial nerve deficits. Motor grossly within normal limits. Five out of 5 muscle strength in the arms and legs. Normal speech. PSYCHIATRIC: Appropriate mood and affect; insight and judgment normal. Data Data Last Documented VS Vital Signs Date Time Temp Pulse Resp B/P (MAP) Pulse Ox O2 Delivery O2 Flow Rate FiO2 01/17/18 22:59 55 16 100 Room Air 01/17/18 22:22 98.5 112/51 (71) Orders Orders Electrocardiogram (01/17/18 22:31) Basic Metabolic Panel (Bmp) (01/17/18 22:31) Complete Blood Count With Diff (01/17/18 22:31) Magnesium (Mg) (01/17/18 22:31) Ckmb (Isoenzyme) Profile (01/17/18 22:31) Troponin I (01/17/18 22:31) Act Partial Throm Time (Ptt) (01/17/18 22:31) Prothrombin Time / Inr (Pt) (01/17/18 22:31) Urinalysis - C+S If Indicated (01/17/18 22:31) Chest, Single Ap (01/17/18 22:31) Ct Brain W/O Iv Contrast(Rout) (01/17/18 22:31) Ecg Monitoring (01/17/18 22:31) Iv Access Insert/Monitor (01/17/18 22:31) Oximetry (01/17/18 22:31) Ondansetron Inj (Zofran Inj) (01/17/18 22:45) Sodium Chloride 0.9% Flush (Ns Flush) (01/17/18 22:45) Sodium Chlor 0.9% 1000 Ml Inj (Ns 1000 M (01/17/18 22:31) Ed Urine Pregnancytest Poc (01/17/18 22:31) Calcium Gluconate Inj (Calcium Gluconate (01/17/18 22:45) Sodium Bicarbonate 8.4% Inj (Sodium Bica (01/17/18 22:45) I-Stat Profile (01/17/18 22:41) CKMB (01/17/18 22:41) CKMB% (01/17/18 22:41) Urine Culture (01/17/18 23:55) Aztreonam Inj (Azactam Inj) (01/18/18 00:30) Sodium Chlor 0.9% 1000 Ml Inj (Ns 1000 M (01/18/18 00:45) Admit Order (Ed Use Only) (01/18/18 ) Shell Molding Roller Blast Operator / Telemetry DOMINGO.Q8H (01/18/18 00:49) Vital Signs (Adult) Q4H (01/18/18 00:49) Diet Heart Healthy (01/18/18 Breakfast) Activity Bed Rest (01/18/18 00:49) Labs Laboratory Tests Test 01/17/18 22:41 01/17/18 22:45 01/17/18 23:55 Bedside Hemoglobin 11.9 G/DL Bedside Hematocrit 35.0 % Bedside Sodium 136 MMOL/L Blood Urea Nitrogen 37 MG/DL Creatinine 2.77 MG/DL Random Glucose 114 MG/DL Calcium Level 8.5 MG/DL Magnesium Level 2.0 MG/DL Sodium Level 135 MEQ/L Potassium Level 4.4 MEQ/L Chloride Level 102 MEQ/L Carbon Dioxide Level 19.0 MEQ/L Bedside Potassium 4.4 MMOL/L Bedside Chloride 106 MMOL/L Anion Gap 14 MEQ/L Bedside Blood Urea Nitrogen 45 MG/DL Bedside Creatinine 2.9 MG/DL Estimat Glomerular Filtration Rate 19 ML/MIN Bedside Glucose 119 MG/DL Total Creatine Kinase 3937 U/L Creatine Kinase MB 47.7 NG/ML Creatine Kinase MB % 1.2 % Troponin I LESS THAN 0.02 NG/ML White Blood Count 9.2 TH/MM3 Red Blood Count 4.36 MIL/MM3 Hemoglobin 11.8 GM/DL Hematocrit 36.0 % Mean Corpuscular Volume 82.5 FL Mean Corpuscular Hemoglobin 27.0 PG Mean Corpuscular Hemoglobin Concent 32.8 % Red Cell Distribution Width 21.3 % Platelet Count 118 TH/MM3 Mean Platelet Volume 8.0 FL Neutrophils (%) (Auto) 73.6 % Lymphocytes (%) (Auto) 15.7 % Monocytes (%) (Auto) 7.3 % Eosinophils (%) (Auto) 2.5 % Basophils (%) (Auto) 0.9 % Neutrophils # (Auto) 6.8 TH/MM3 Lymphocytes # (Auto) 1.4 TH/MM3 Monocytes # (Auto) 0.7 TH/MM3 Eosinophils # (Auto) 0.2 TH/MM3 Basophils # (Auto) 0.1 TH/MM3 CBC Comment AUTO DIFF Differential Comment AUTO DIFF CONFIRMED Toxic Granulation 1+ Toxic Vacuolation PRESENT Platelet Estimate LOW Platelet Morphology Comment NORMAL Ovalocytes 1+ Acanthocytes OCC Prothrombin Time 11.4 SEC Prothromb Time International Ratio 1.1 RATIO Activated Partial Thromboplast Time 26.3 SEC Urine Color YELLOW Urine Turbidity HAZY Urine pH 6.0 Urine Specific [place] 1.015 Urine Protein 30 mg/dL Urine Glucose (UA) NEG mg/dL Urine Ketones NEG mg/dL Urine Occult Blood MOD Urine Nitrite NEG Urine Bilirubin NEG Urine Urobilinogen LESS THAN 2.0 MG/DL Urine Leukocyte Esterase SMALL Urine RBC 1 /hpf Urine WBC 10 /hpf Urine Squamous Epithelial Cells 14 /hpf Urine Hyaline Casts 37 /lpf Microscopic Urinalysis Comment CULTURE INDICATED MDM Medical Decision Making Medical Screen Exam Complete: Yes Emergency Medical Condition: Yes Medical Record Reviewed: Yes Differential Diagnosis NSTEMI, unstable angina, coronary vasospasm, PE, PTX, aortic dissection, pericarditis, myocarditis, endocarditis, PNA, esophageal disease, aneurysm, musculoskeletal etiologies, anxiety, cocaine/sympathomimetic abuse Narrative Course CBC & BMP Diagram 01/17/18 22:41 Calcium Level 8.5, Magnesium Level 2.0 01/17/18 22:[address] 01/17/182230 Signed Impressions: Service Date/Time: Wednesday, January 17, 2018 23:27 - CONCLUSION: Normal examination. Vic Williamson Jr., MD Chest X-Ray 01/17/182230 Signed Impressions: Service Date/Time: Wednesday, January 17, 2018 22:37 - CONCLUSION: No evidence of acute cardiopulmonary disease. Brian Arrieta MD Novopyxis interrogation was performed and it revealed normal device function evidently one episode of atrial fibrillation was observed. EKG shows Brugada syndrome with ST elevations in V1 and V2 as would be expected Patient will be admitted to the hospitalist service for ongoing monitoring and management of acute kidney injury, rhabdomyolysis and arrhythmia. Critical Care Narrative Aggregate critical care time was 35 minutes. Time to perform other separately billable procedures was not included in the critical care time. My time did not include minutes spent treating any other patients simultaneously or on activities that did not directly contribute to the patient's treatment. The services I provided to this patient were to treat and/or prevent clinically significant deterioration that could result in: Arrhythmia, cardiopulmonary arrest I provided critical care services requiring my management, as noted below: Chart data review, documentation time, medication orders and management, vital sign assessments/reviewing monitor data, ordering and reviewing lab tests, ordering and interpreting/reviewing x-rays and diagnostic studies, care of the patient and discussion of the patient with the admitting physicians. Diagnosis Primary Impression: Abnormal EKG Additional Impressions: SHABANA (acute kidney injury) Syncope Qualified Codes: R55 - Syncope and collapse Brugada syndrome Rhabdomyolysis Qualified Codes: M62.82 - Rhabdomyolysis Troy English MD Jan 17, 2018 22:36
[2018-01-17] MEDS ORDERED: SODIUM CHLORIDE 0.9% FLUSH 10 ML FLUSH IVF PRN (22:45)
[2018-01-17] MEDS ORDERED: SODIUM BICARBONATE 8.4% SOLN 50 MEQ/50 ML VIAL SLOW IVP ONE (22:45)
[2018-01-17] MEDS ORDERED: CALCIUM GLUCONATE 10% 1 GM/10 ML VIAL SLOW IVP ONE (22:45)
[2018-01-17] MEDS ORDERED: ONDANSETRON HCL 4 MG/2 ML VIAL IVP ONE (22:45)
[2018-01-17 22:54] LABS: AUTOMATED NEUTROPHIL # 6.8 TH/MM3 (1.8-7.7); BASOPHIL # 0.1 TH/MM3 (0-0.2); BASOPHIL % 0.9 % (0.0-2.0); EOSINOPHIL # 0.2 TH/MM3 (0-0.4); EOSINOPHIL % 2.5 % (0.0-4.0); HEMOGLOBIN 11.8 GM/DL (11.6-15.3); LYMPH % 15.7 % (9.0-44.0); LYMPHOCYTE # 1.4 TH/MM3 (1.0-4.8); MEAN CELL VOLUME 82.5 FL (80.0-100.0); MEAN CORPUSCULAR HGB CONC 32.8 % (32.0-36.0); MONO % 7.3 % (0.0-8.0); MONOCYTE # 0.7 TH/MM3 (0-0.9); NEUT % 73.6 % (16.0-70.0); PLATELET COUNT 118 TH/MM3 (150-450); RED BLOOD COUNT 4.36 MIL/MM3 (4.00-5.30); RED CELL DISTRIBUTION WIDTH 21.3 % (11.6-17.2); WHITE BLOOD COUNT 9.2 TH/MM3 (4.0-11.0)
[2018-01-17 22:55] VITALS: RESP 16; O2SAT 100
--- NOTE | 2018-01-17 22:57 | RADRPT ---
EXAM DATE/TIME: 01/17/2018 22:37 [facility] COMPARISON: No previous studies available for comparison. INDICATIONS : Chest palpitations. MEDICAL HISTORY : Endometriosis. Hypertension. Hypothyroid. Juvenile epilepsy. Kidney disease. Crohn's. lupus. gastropa resis. nephritis. SURGICAL HISTORY : Appendectomy. Pacemaker. Partial oopherectomy. Multriple laporascopic surgeries. ENCOUNTER: Initial ACUITY: 1 day PAIN SCORE: 4/10 LOCATION: Bilateral chest FINDINGS: A single view of the chest demonstrates the lungs to be symmetrically aerated without evidence of mas s, infiltrate or effusion. The cardiomediastinal contours are unremarkable. Osseous structures are intact. Cardiac pacer/defibrillator again noted. CONCLUSION: No evidence of acute cardiopulmonary disease. Brian Arrieta MD on January 17, 2018 at 22:55 Board Certified Radiologist. This report was verified electronically.
[2018-01-17 23:03] LABS: INTERNATIONAL NORMALIZED RATIO 1.1 RATIO; PROTHROMBIN TIME - PATIENT 11.4 SEC (9.8-11.6)
[2018-01-17] MEDS ORDERED: K-PHTAB PO (23:07)
[2018-01-17 23:11] LABS: BLOOD UREA NITROGEN 37 MG/DL (7-18); CALCIUM 8.5 MG/DL (8.5-10.1); CHLORIDE 102 MEQ/L (98-107); CREATININE 2.77 MG/DL (0.50-1.00); GLOMERULAR FILTRATION RATE 19 ML/MIN (>89); GLUCOSE,RANDOM 114 MG/DL (74-106); SODIUM (NA) 135 MEQ/L (136-145)
[2018-01-17 23:34] LABS: TROPONIN I LESS THAN 0.02 NG/ML (0.02-0.05)
[2018-01-17 23:35] LABS: ACANTHOCYTES OCC (NORMAL); OVALOCYTES 1+ (NORMAL)
[2018-01-17 23:36] LABS: TOXIC GRANULATION 1+ (NORMAL)
[2018-01-17 23:37] LABS: TOXIC VACUOLATION PRESENT (NONE SEEN)
--- NOTE | 2018-01-17 23:56 | RADRPT ---
EXAM DATE/TIME: 01/17/2018 23:27 [facility] COMPARISON: CT BRAIN W/O CONTRAST, November 05, 2011, 21:46. INDICATIONS : Dizziness. RADIATION DOSE: 56.35 CTDIvol (mGy) MEDICAL HISTORY : Seizures. SURGICAL HISTORY : Pacemaker. ENCOUNTER: Initial ACUITY: 1 day PAIN SCALE: 0/10 LOCATION: cranial TECHNIQUE: Multiple contiguous axial images were obtained of the head. Using automated exposure control and adj ustment of the mA and/or kV according to patient size, radiation dose was kept as low as reasonably a chievable to obtain optimal diagnostic quality images. DICOM format image data is available electro nically for review and comparison. FINDINGS: CEREBRUM: The ventricles are normal for age. No evidence of midline shift, mass lesion, hemorrhage or acute in farction. No extra-axial fluid collections are seen. POSTERIOR FOSSA: The cerebellum and brainstem are intact. The 4th ventricle is midline. The cerebellopontine angle i s unremarkable. EXTRACRANIAL: The visualized portion of the orbits is intact. SKULL: The calvaria is intact. No evidence of skull fracture. CONCLUSION: Normal examination. Vic Williamson Jr., MD on January 17, 2018 at 23:53 Board Certified Radiologist. This report was verified electronically.
[2018-01-18] VITALS (10 sets, daily range): BP systolic 85–119; BP diastolic 47–73; PULSE 38–61; RESP 12–18; TEMP 97.7–99.2; O2SAT 94–99
[2018-01-18 00:06] LABS: BILIRUBIN, URINE NEG (NEG); BLOOD, URINE MOD (NEG); GLUCOSE,URINE NEG (NEG); HYALINE CAST, URINE 37 /lpf (RARE); KETONE, URINE NEG (NEG); NITRITE,URINE NEG (NEG); SQUAMOUS EPITHELIAL CELL URINE 14 /hpf (0-5); URINE COLOR YELLOW (YELLW/STRAW); URINE LEUKOCYTE ESTERASE SMALL (NEG)
[2018-01-18] MEDS ORDERED: AZTREONAM INJ 2,000 MG in SODIUM CHLORIDE 0.9% INJ 100 ML IV ONE (00:30)
[2018-01-18] MEDS ORDERED: SODIUM CHLOR 0.9% 1000 ML INJ 1,000 ML IV ONE (00:45)
[2018-01-18] MEDS ORDERED: NALOXONE HCL 0.4 MG/ML AMP IV PUSH PRN (01:00)
--- NOTE | 2018-01-18 01:30 | HHI.HP ---
HPI Service [facility] Primary Care Physician No Primary Care Physician Admission Diagnosis Syncope; SHABANA; Rhabdo; Bruggada Syndrome Diagnoses: Travel History International Travel<30 Days: No Contact w/Intl Traveler <30 Da: No Traveled to Known Affected Are: No History of Present Illness History from patient, ER physician communication, interview of medical records. Patient reported that she has been having muscle spasms since beginning of this month. She reports of painful cramps everywhere in her body. At some times, her hands would lockup. She states that she was not able to get Valium as an outpatient which she usually takes for muscle spasms and she was attributing to her symptoms because of this. She came to the emergency room and was given Valium here. She then continued to have these symptoms for the next 2 days or so. She reports dizziness. Today, patient returned back to ER because she stated that she has been passing out. At least twice today. She also reports of falling down episodes. 6 today. She states she does feel dizzy as he sees objects moving around when she feels dizzy. She states the dizziness comes on particularly when she starts moving around. Denies she did have some chest tightness and pressure before and after the episode of syncope. Reports she sees flash of light just before passing out as well. today returned because she was passing out - at least 2 x today but fell down 5-6x felt dizziness whenever i get up to start moving and doing things had chest pain before and after the syncope felt more of pressure dizziness is more of room spinning sees flash lights before syncope chest pain worse when pressing on it but also when taking a deep breath pain felt like it spiral down the chest On review of system, patient also reports that she was at [facility] about 3-1/2 weeks ago. She was discharged from December 22, 2017. She states at that time, her AICD had to be removed. Reports that at that time, she did have bacteremia. She took antibiotics for 2 weeks in the hospital and was discharged on oral levofloxacin for the next 10 days. was in hospital for 2 weeks on iv antibiotics- was discharged on levofloxacin 7 days course - finished by 2/23 or so had nose bleed in her 2 last er visit this month had fever 104 at home has been taking ibuprofen and tylenol no cough no diarrhea no urinary symptoms- but states always have frequency had blood in stool , red color, just this week- but only when she wipes Review of Systems Except as stated in HPI: all other systems reviewed are Neg Past Family Social History Past Medical History burgada syndrome s/p aicd afib ckd lupus/ sle systemic hypothyroidism seizures muscle spasms appendix cancer - s/p resection 2004 gastroparesis crohns dx esophagitis colitis cystitis endometriosis anemia chronic hypokalemia hx of MRSA infection years ago Past Surgical History aicd colonoscopies egds appendectomy lapartomies cystoscopies g tube placement Allergies: Coded Allergies: Fish Containing Products (Unverified Allergy, Severe, SWELLING IN THROAT, SOB, 01/12/18) cephalexin (Unverified Allergy, Severe, RASH,SWELLING, 01/12/18) ketorolac (Unverified Allergy, Severe, RASH, 01/12/18) penicillin G (Unverified Allergy, Severe, RASH,SWELLING, 01/12/18) prochlorperazine (Unverified Allergy, Mild, DYSTONIC REACTION, 01/12/18) promethazine (Unverified Allergy, Mild, DYSTONIC REACTION, 01/12/18) gabapentin (Unverified Adverse Reaction, Severe, SEIZURES, 01/12/18) Family History both parents are adopted moms side- all women had lupus except for her mom, they had thyroid cancer Social History never smoked no etoh abuse no drugs Physical Exam Vital Signs Vital Signs Date Time Temp Pulse Resp B/P (MAP) Pulse Ox O2 Delivery O2 Flow Rate FiO2 01/17/18 22:59 55 16 100 Room Air 01/17/18 22:55 16 100 Room Air 01/17/18 22:22 98.5 51 16 112/51 (71) Physical Exam GENERAL: This is a well-nourished, well-developed patient, in no apparent distress. SKIN: No rashes, ecchymoses or lesions. Cool and dry. HEAD: Atraumatic. Normocephalic. No temporal or scalp tenderness. EYES: Pupils equal round and reactive NECK: Trachea midline. No JVD or lymphadenopathy. Supple, nontender, no meningeal signs. CARDIOVASCULAR: Regular rate and rhythm without murmurs, gallops, or rubs. RESPIRATORY: Clear to auscultation. Breath sounds equal bilaterally. No wheezes , rales, or rhonchi. GASTROINTESTINAL: Abdomen soft, non-tender, nondistended. No guarding. MUSCULOSKELETAL: Extremities without clubbing, cyanosis, or edema. No calf tenderness. NEUROLOGICAL: Awake and alert. Motor and sensory grossly within normal limits. Normal speech. Generalized weakness. No focal deficit. Laboratory Laboratory Tests Test 01/17/18 22:41 01/17/18 22:45 01/17/18 23:55 Bedside Hemoglobin 11.9 Bedside Hematocrit 35.0 Bedside Sodium 136 Blood Urea Nitrogen 37 Creatinine 2.77 Random Glucose 114 Calcium Level 8.5 Magnesium Level 2.0 Sodium Level 135 Potassium Level 4.4 Chloride Level 102 Carbon Dioxide Level 19.0 Bedside Potassium 4.4 Bedside Chloride 106 Anion Gap 14 Bedside Blood Urea Nitrogen 45 Bedside Creatinine 2.9 Estimat Glomerular Filtration Rate 19 Bedside Glucose 119 Total Creatine Kinase 3937 Creatine Kinase MB 47.7 Creatine Kinase MB % 1.2 Troponin I LESS THAN 0.02 White Blood Count 9.2 Red Blood Count 4.36 Hemoglobin 11.8 Hematocrit 36.0 Mean Corpuscular Volume 82.5 Mean Corpuscular Hemoglobin 27.0 Mean Corpuscular Hemoglobin Concent 32.8 Red Cell Distribution Width 21.3 Platelet Count 118 Mean Platelet Volume 8.0 Neutrophils (%) (Auto) 73.6 Lymphocytes (%) (Auto) 15.7 Monocytes (%) (Auto) 7.3 Eosinophils (%) (Auto) 2.5 Basophils (%) (Auto) 0.9 Neutrophils # (Auto) 6.8 Lymphocytes # (Auto) 1.4 Monocytes # (Auto) 0.7 Eosinophils # (Auto) 0.2 Basophils # (Auto) 0.1 CBC Comment AUTO DIFF Differential Comment AUTO DIFF CONFIRMED Toxic Granulation 1+ Toxic Vacuolation PRESENT Platelet Estimate LOW Platelet Morphology Comment NORMAL Ovalocytes 1+ Acanthocytes OCC Prothrombin Time 11.4 Prothromb Time International Ratio 1.1 Activated Partial Thromboplast Time 26.3 Urine Color YELLOW Urine Turbidity HAZY Urine pH 6.0 Urine Specific Shade 1.015 Urine Protein 30 Urine Glucose (UA) NEG Urine Ketones NEG Urine Occult Blood MOD Urine Nitrite NEG Urine Bilirubin NEG Urine Urobilinogen LESS THAN 2.0 Urine Leukocyte Esterase SMALL Urine RBC 1 Urine WBC 10 Urine Squamous Epithelial Cells 14 Urine Hyaline Casts 37 Microscopic Urinalysis Comment CULTURE INDICATED Date/Time Source Procedure Growth Status 01/17/18 23:55 Urine Random Urine Urine Culture Pending Received Result Diagram: 01/17/18224401/17/182240 Imaging Last [address] 01/17/182230 Signed Impressions: Service Date/Time: Wednesday, January 17, 2018 23:27 - CONCLUSION: Normal examination. Vic Williamson Jr., MD Chest X-Ray 01/17/182230 Signed Impressions: Service Date/Time: Wednesday, January 17, 2018 22:37 - CONCLUSION: No evidence of acute cardiopulmonary disease. Brian Arrieta MD Capector VTE Risk Assessment Caprini VTE Risk Assessment: Mod/High Risk (score >= 2) Caprini Risk Assessment Model Point Value = 1 Point Value = 2 Point Value = 3 Point Value = 5 Age 41-60 Minor surgery BMI > 25 kg/m2 Swollen legs Varicose veins or History of unexplained or recurrent spontaneous Oral contraceptives or hormone replacement Sepsis (< 1 month) Serious lung disease, including pneumonia (< 1 month) Abnormal pulmonary function Acute myocardial infarction Congestive heart failure (< 1 month) History of inflammatory bowel disease Medical patient at bed rest Age 61-74 Arthroscopic surgery Major open surgery (> 45 min) Laparoscopic surgery (> 45 min) Malignancy Confined to bed (> 72 hours) Immobilizing plaster cast Central venous access Age >= 75 History of VTE Family history of VTE Factor V Leiden Prothrombin 20511P Lupus anticoagulant Anticardiolipin antibodies Elevated serum homocysteine Heparin-induced thrombocytopenia Other congenital or acquired thrombophilia Stroke (< 1 month) Elective arthroplasty Hip, pelvis, or leg fracture Acute spinal cord injury (< 1 month) Prophylaxis Regimen Total Risk Factor Score Risk Level Prophylaxis Regimen 0-1 Low Early ambulation 2 Moderate Order ONE of the following: *Sequential Compression Device (SCD) *Heparin 5000 units SQ BID 3-4 Higher Order ONE of the following medications: *Heparin 5000 units SQ TID *Enoxaparin/Lovenox 40 mg SQ daily (WT < 150 kg, CrCl > 30 mL/min) *Enoxaparin/Lovenox 30 mg SQ daily (WT < 150 kg, CrCl > 10-29 mL/min) *Enoxaparin/Lovenox 30 mg SQ BID (WT < 150 kg, CrCl > 30 mL/min) AND/OR *Sequential Compression Device (SCD) 5 or more Highest Order ONE of the following medications: *Heparin 5000 units SQ TID (Preferred with Epidurals) *Enoxaparin/Lovenox 40 mg SQ daily (WT < 150 kg, CrCl > 30 mL/min) *Enoxaparin/Lovenox 30 mg SQ daily (WT < 150 kg, CrCl > 10-29 mL/min) *Enoxaparin/Lovenox 30 mg SQ BID (WT < 150 kg, CrCl > 30 mL/min) AND *Sequential Compression Device (SCD) Assessment and Plan Assessment and Plan syncope falls suspects orthostatic BP burgada syndrom s/p aicd - which was interrogated in ER - episodes of afib, but otherwise appropriate rhabdomyolysis vs myositis acute kidney injury on CKD abnormal UA recent aicd infection and bacteremia at - d/c on 12/22- completed antibiotics chest pain- more musculoskeletal from aicd leads; will r/o ACS; saturation is 100% on RA afib lupus/ sle systemic hypothyroidism seizures muscle spasms appendix cancer - s/p resection 2003 gastroparesis crohns dx esophagitis colitis cystitis endometriosis anemia chronic hypokalemia hx of MRSA infection years ago Plan tele monitoring pt's case was discussed with 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 Dr Craig and Dr Payan per ER MD will consult cardiology for possible cardiogenic syncope - also question as to anticoagulation aicd interrogation - afib episodes seen, but otherwise unremarkable check orthostatics check carotids echo latest in 09/2017 reviewed - no valvular pathology pt received iv fluids in ER resume iv hydration for rhabdo will follow renal function fall precautions re her abnormal UA , will await cx results as pt was on antibiotics recently, and looks well clinically monitor for fevers (pt is reporting she had fevers of 104 at home?) resume home meds will hold robaxin dvt prophylaxis on heparin gi prophylaxis on pantoprazole Discussed Condition With Patient, ER physician, nursing staff Physician Certification 2 Midnight Certification Type: Admission for Inpatient Services Order for Inpatient Services The services are ordered in accordance with Medicare regulations or non- Medicare payer requirements, as applicable. In the case of services not specified as inpatient-only, they are appropriately provided as inpatient services in accordance with the 2-midnight benchmark. Estimated LOS (days): 2 days is the estimated time the patient will need to remain in the hospital, assuming treatment plan goals are met and no additional complications. Post-Hospital Plan: Home Harjit Weiner MD Jan 18, 2018 01:30
[2018-01-18] MEDS ORDERED: MORPHINE SULFATE 15 MG CONTROLLED RELEASE TAB PO SCH (02:00)
[2018-01-18] MEDS: SODIUM CHLOR 0.9% 1000 ML INJ 1,000 ML IV SCH ×3 (02:50→18:42)
[2018-01-18] MEDS: LEVOTHYROXINE SODIUM 125 MCG TAB PO SCH (05:33)
[2018-01-18] MEDS: HEPARIN SODIUM - SQ 10,000 UNITS/ML VIAL SQ SCH ×3 (05:33→21:01)
[2018-01-18 07:50] LABS: TROPONIN I LESS THAN 0.02 NG/ML (0.02-0.05)
[2018-01-18] MEDS: SODIUM CHLORIDE 0.9% FLUSH 10 ML FLUSH IV FLUSH SCH ×2 (09:00→21:00)
[2018-01-18] MEDS: SPIRONOLACTONE 25 MG TAB PO SCH (09:09)
[2018-01-18] MEDS: predniSONE 20 MG TAB PO SCH (09:09)
[2018-01-18] MEDS: FERROUS SULFATE 325 MG (65 MG ELEMENTAL IRON) TAB PO SCH ×2 (09:09→18:40)
[2018-01-18] MEDS: POTASSIUM PHOSPHATE MONOBASIC 500 MG TAB PO SCH ×4 (09:09→21:01)
[2018-01-18] MEDS: POTASSIUM CHLORIDE 20 MEQ CONTROLLED RELEASE TAB PO SCH ×3 (09:09→18:40)
[2018-01-18] MEDS: MAGNESIUM OXIDE 400 MG TAB PO SCH (09:09)
--- NOTE | 2018-01-18 10:49 | RADRPT ---
EXAM DATE/TIME: 01/18/2018 09:31 [facility] COMPARISON: No previous studies available for comparison. INDICATIONS : Syncope. MEDICAL HISTORY : Hypothyroidism. Ulcers. Gastroesophageal reflux disease. Seizures. Pneumonia. Ovarian cysts. Bipolar disorder. UTI. Renal failure. Kidney stones. MRSA. C-diff. Crohns. Lupus. SURGICAL HISTORY : Hysterectomy. AICD. ENCOUNTER: Initial ACUITY: 1 day PAIN SCORE: 2/10 LOCATION: Bilateral neck PEAK SYSTOLIC VELOCITIES (cm/sec): ICA/CCA RATIO: Right: 1.2 Left: 0.9 ICA: Right: 128 Left: 116 CCA: Right: 108 Left: 132 ECA: Right: 61 Left: 118 VERTEBRAL: Right: 94 antegrade Left: 65 antegrade Elevated flow velocities and ICA/CCA ratios have been found to correlate with increased degrees of vessel stenosis, calculated as percentage of diameter relative to a normal segment of distal ICA/CCA FINDINGS: RIGHT CAROTID: No significant stenosis is visualized. The waveforms are within normal limits. LEFT CAROTID: No significant stenosis is visualized. The waveforms are within normal limits. VERTEBRAL ARTERIES: Antegrade flow is seen in both vertebral arteries. MISCELLANEOUS: None. CONCLUSION: 1. Minimal carotid plaque without flow limiting stenosis. 2. Antegrade vertebral artery flow bilaterally. Gil Valente MD on January 18, 2018 at 10:46 Board Certified Radiologist. This report was verified electronically.
--- NOTE | 2018-01-18 11:24 | HHI.PR ---
Subjective Remarks Follow-up visit bradycardia, syncopal episode. Patient seen and examined today sitting in bed. Reports she feels a lot better. Continues to have some chest discomfort, states she suspects it is from the firing of AICD and that her muscles are weakened by it. Denies SOB/ dyspnea. Denies palpitations, dizziness. Denies fevers, chills, n/v/d. Reports dyspepsia. Denies abdominal pain. Denies dysuria. Objective Vitals Vital Signs Date Time Temp Pulse Resp B/P (MAP) Pulse Ox O2 Delivery O2 Flow Rate FiO2 01/18/18 07:14 97.7 47 16 99/54 (69) 97 111/73 (86) 106/69 (81) 01/18/18 05:41 42 01/18/18 04:22 98.3 55 18 87/47 (60) 96 88/51 (63) 01/18/18 03:30 12 01/18/18 02:19 98.2 61 18 96/55 (69) 98 97/50 (66) 85/47 (60) 01/17/18 22:59 55 16 100 Room Air 01/17/18 22:55 16 100 Room Air 01/17/18 22:22 98.5 51 16 112/51 (71) Result Diagram: 01/17/18224401/17/182240 Imaging Last Impressions Carotid Artery Ultrasound 01/18/18 0000 Signed Impressions: Service Date/Time: January 09:31 - CONCLUSION: 1. Minimal carotid plaque without flow limiting stenosis. 2. Antegrade vertebral artery flow bilaterally. Gil Valente MD Head CT 01/17/182230 Signed Impressions: Service Date/Time: Wednesday, January 17, 2018 23:27 - CONCLUSION: Normal examination. Vic Williamson Jr., MD Chest X-Ray 01/17/182230 Signed Impressions: Service Date/Time: Wednesday, January 17, 2018 22:37 - CONCLUSION: No evidence of acute cardiopulmonary disease. Brian Arrieta MD Objective Remarks GENERAL: This is a well-nourished, well-developed patient, in no apparent distress. SKIN: Warm and dry. Pale. HEENT: Normocephalic. Pupils equal round and reactive. Nose without bleeding. Airway patent. NECK: Trachea midline. CARDIOVASCULAR: Bradycardia without murmurs, gallops, or rubs. RESPIRATORY: Clear to auscultation. Breath sounds equal bilaterally. No wheezes , rales, or rhonchi. GASTROINTESTINAL: Abdomen soft, non-tender, nondistended. Bowel Sounds normoactive x4. MUSCULOSKELETAL: Extremities without clubbing, cyanosis, or edema. NEUROLOGICAL: Awake and alert. Oriented to time, place, person. No focal neuro deficit. Moves all extremities. Normal speech. A/P Problem List: (1) Brugada syndrome ICD Code: I49.8 - Other specified cardiac arrhythmias (2) Syncope ICD Code: R55 - Syncope and collapse Status: Acute (3) Rhabdomyolysis ICD Code: M62.82 - Rhabdomyolysis Status: Acute (4) S/P ICD (internal cardiac defibrillator) procedure ICD Code: Z95.810 - Presence of automatic (implantable) cardiac defibrillator Assessment and Plan Patient is a 42-year-old female with primary medical history of A. fib, Brugada syndrome status post AICD, hypothyroidism, lupus/SLE who came into the hospital for multiple syncopal episodes. Syncopal episode, multiple times Bradycardia Brugada syndrome, status post AICD -AICD interrogated, episodes of A. fib but otherwise appropriate. -Telemetry monitoring. Continues to be bradycardic -Consult cardiology for further evaluation recommendation. Supposedly following Dr. Cervantes in the outpatient -Pain management. Patient on morphine 30 mg every 8 hours, will decrease dose to 15 mg every 8 hours, for now secondary to bradycardia. -Rule out ACS. First 2 troponins less than 0.02 -Check orthostatic BP -Monitor BP trend Rhabdomyolysis Acute kidney injury -Creatinine 2.77 -CK 3937 --> 3865 -IV fluids for hydration, increase NS 150ml/hr, monitor for fluid overload. -Monitor CK, monitor creatinine -Avoid nephrotoxin Hypothyroidism -Check TSH -Continue levothyroxine, adjust as needed Lupus/ SLE/ Crohn's Chronic pain syndrome Muscle spasm -On prednisone 40 mg daily, may need to adjust secondary to SHABANA -Cont home meds -Decrease dose of morphine, hold off on Robaxin. Continue Valium 10 mg 3 times daily as needed. DVT prop heparin Discharge Planning Plan to DC home when cleared by cardiology. Problem Qualifiers (1) Syncope: Qualified Codes: R55 - Syncope and collapse (2) Rhabdomyolysis: Qualified Codes: M62.82 - Rhabdomyolysis Kendall Bradshaw Jan 18, 2018 11:24
[2018-01-18] MEDS ORDERED: MORPHINE SULFATE 15 MG CONTROLLED RELEASE TAB PO ONE (12:00)
[2018-01-18] MEDS ORDERED: ALUMINUM/MAGNESIUM/SIMETH 30 ML CUP PO PRN (13:15)
--- NOTE | 2018-01-18 14:05 | EKG ---
Date Performed: 01/17/2018 Time Performed: 22:32:34 PTAGE: 42 years EKG: Supraventricular rhythm that is probably Sinus rhythm with PACs. Rhythm strip advised MODERATE INTRAVENTRICULAR CONDUCTION DELAY MARKED ST ELEVATION, CONS IDER SEPTAL INJURY TYPE 1 BRUGADA PATTERN, EXCLUDE RECENT INFARCTION, CABG, MYOCARDITIS OR DRUG EFFEC T ACUTE OR Prolongation of the QT interval for the heart rate Compared to PREVIOUS TRACING the patient has developed increasing ST elevation in the septal leads. Myocardial injury should be excluded clinically. QT interval is more prolonged and there has been fur ther widening of QRS complex. The serial changes suggest possibility of drug effect, myocardial disea se or electrolyte embalance. Clinical correlation is recommended to assess the significance PREVIOUS TRACIN01/17/2018 22.27 DOCTOR: Polly Noland Interpretating Date/Time 01/18/2018 13:56:36
[2018-01-18 14:26] LABS: CALCIUM 7.7 MG/DL (8.5-10.1); CREATININE 2.55 MG/DL (0.50-1.00)
--- NOTE | 2018-01-18 18:33 | HHI.PR ---
Addendum to Inpatient Note Addendum Reason: Additional Documentation Additional Information Patient was reported by sitting and telemetry to have slowed down her heart rate in the 30s. She was asymptomatic, sleeping. Notified Dr. English, but states to call service. Spoke with Dr. Leiva, recommends to call [employer] again and have them increase rate/ MA, if it does not work may start patient on dopamine low-dose 5 mcg. Nurse called [facility] and states that patient has a single-chamber AICD with no capability of pacing. Will transfer the patient on CIC for closer monitoring. Start dopamine low dose if heart rate slows down in the 30s. Kendall Bradshaw Jan 18, 2018 18:33
[2018-01-18] MEDS: MORPHINE SULFATE 15 MG CONTROLLED RELEASE TAB PO SCH (18:40)
[2018-01-18] MEDS ORDERED: TERBUTALINE INJ 1 MG/ML AMP SQ PRN (20:45)
[2018-01-18] MEDS ORDERED: DOPamine 800 MG/500 ML INJ 500 ML IV PRN (20:45)
[2018-01-18] MEDS: PANTOPRAZOLE SOD 40 MG DELAYED RELEASE TAB PO SCH (21:01)
[2018-01-18] MEDS ORDERED: ATROPINE SULFATE 1 MG/10 ML SYRINGE ONE (23:27)
[2018-01-18] MEDS ORDERED: CHLORHEXIDINE GLUCONATE 2 % 1 PACK (2 CLOTHS)(extra cloths) TOPICAL PRN (23:45)
[2018-01-18] MEDS: DOPamine 800 MG/500 ML INJ 500 ML IV PRN (23:53)
[2018-01-19] VITALS (12 sets, daily range): BP systolic 104–141; BP diastolic 61–85; PULSE 58–76; RESP 15–33; TEMP 98–98.9; O2SAT 96–99
[2018-01-19] MEDS: SODIUM CHLOR 0.9% 1000 ML INJ 1,000 ML IV SCH ×4 (00:20→22:46)
[2018-01-19] MEDS: ONDANSETRON HCL 4 MG/2 ML VIAL IV PUSH PRN ×3 (01:22→16:38)
[2018-01-19] MEDS: MORPHINE SULFATE 15 MG CONTROLLED RELEASE TAB PO SCH ×3 (01:22→17:07)
[2018-01-19] MEDS: CHLORHEXIDINE GLUCONATE 2 % 1 PACK (2 CLOTHS)(taper/protocol) TOPICAL SCH (04:00)
[2018-01-19 05:23] LABS: AUTOMATED NEUTROPHIL # 7.7 TH/MM3 (1.8-7.7); BASOPHIL % 0.4 % (0.0-2.0); EOSINOPHIL % 0.1 % (0.0-4.0); HEMATOCRIT 36.7 % (35.0-46.0); LYMPH % 7.6 % (9.0-44.0); LYMPHOCYTE # 0.7 TH/MM3 (1.0-4.8); MEAN CELL VOLUME 82.8 FL (80.0-100.0); MEAN CORPUSCULAR HEMOGLOBIN 27.1 PG (27.0-34.0); MEAN CORPUSCULAR HGB CONC 32.8 % (32.0-36.0); MONO % 6.8 % (0.0-8.0); MONOCYTE # 0.6 TH/MM3 (0-0.9); NEUT % 85.1 % (16.0-70.0); PLATELET COUNT 172 TH/MM3 (150-450); RED BLOOD COUNT 4.43 MIL/MM3 (4.00-5.30); RED CELL DISTRIBUTION WIDTH 20.8 % (11.6-17.2)
[2018-01-19] MEDS: LEVOTHYROXINE SODIUM 125 MCG TAB PO SCH (05:45)
[2018-01-19] MEDS: HEPARIN SODIUM - SQ 10,000 UNITS/ML VIAL SQ SCH ×2 (05:46→13:31)
[2018-01-19 05:59] LABS: BICARBONATE 22.8 MEQ/L (21.0-32.0); CALCIUM 9.1 MG/DL (8.5-10.1); CREATININE 1.59 MG/DL (0.50-1.00)
[2018-01-19] MEDS: POTASSIUM CHLORIDE 20 MEQ CONTROLLED RELEASE TAB PO SCH ×3 (09:01→17:07)
[2018-01-19] MEDS: MAGNESIUM OXIDE 400 MG TAB PO SCH (09:01)
[2018-01-19] MEDS: FERROUS SULFATE 325 MG (65 MG ELEMENTAL IRON) TAB PO SCH ×2 (09:01→17:07)
[2018-01-19] MEDS: predniSONE 20 MG TAB PO SCH (09:01)
[2018-01-19] MEDS: SPIRONOLACTONE 25 MG TAB PO SCH (09:02)
[2018-01-19] MEDS: POTASSIUM PHOSPHATE MONOBASIC 500 MG TAB PO SCH ×4 (09:02→21:13)
[2018-01-19] MEDS: SODIUM CHLORIDE 0.9% FLUSH 10 ML FLUSH IV FLUSH SCH ×2 (09:08→21:10)
--- NOTE | 2018-01-19 09:19 | MB ---
cc: Sandra Craig MD DATE OF CONSULT: 01/18/2018 HISTORY OF PRESENT ILLNESS: Ms. Hernandez is a 42-year-old white female with a history of Brugada syndrome. She underwent placement of subcutaneous ICD by Dr. Cervantes recently at [facility]. Her previous ICD was removed. She presented after she started to have dizziness, syncope and falls. She lost her muscle strength and fell multiple times today She complains of dizziness. She has discomfort at the site of her ICD. She has not had any clear angina. She also complains of fatigue. She had flash of light before syncope. Her pain was reproducible with chest palpation and also with deep inspiration. The patient apparently was febrile at home. She has not had any shortness of breath and cough. PAST MEDICAL HISTORY: Positive for Brugada syndrome, history of ICD, history of atrial fibrillation, chronic kidney disease, lupus, hypothyroidism, seizures, muscle spasm. Cancer of the appendix, status post resection in 2003, gastroparesis, Crohn's disease, esophagitis, colitis, cystitis, endometriosis, anemia, chronic hypokalemia, history of MRSA infection, history of recent subcutaneous ICD placement, appendectomy, laparotomy, cystoscopy, G-tube placement. ALLERGIES: GABAPENTIN, PROMETHAZINE, PROCHLORPERAZINE, PENICILLIN, KETOROLAC, CEPHALEXIN, FISH. MEDICATIONS: Include methocarbamol, iron, spironolactone, morphine, diazepam potassium, magnesium, pantoprazole, prednisone, levothyroxine and cholecalciferol. SOCIAL HISTORY: The patient smokes. He Does not drink alcohol. FAMILY HISTORY: Negative for heart disease. REVIEW OF SYSTEMS: Otherwise, negative. PHYSICAL EXAMINATION: VITAL SIGNS: Blood pressure 119/59, pulse 59 and irregular. HEENT: Negative 2+ upstrokes, no bruits. CHEST: Lungs clear. HEART: Irregular. No murmur or gallop. ABDOMEN: Soft, no bruits. EXTREMITIES: Without edema. 2+ pulses. NEUROLOGIC: Grossly nonfocal. SKIN: Left chest ICD site and anterior chest ICD sites are healing well. There is no evidence of a soft tissue infection. STUDY: EKG was reviewed and showed atrial fibrillation with controlled ventricular response, intraventricular conduction delay and Brugada pattern. LABORATORY DATA: Hemoglobin 11.8, potassium 3.8, creatinine 2.55, CK 3937, CK-MB index 1.2. Troponin less than 0.02 x 2. TSH 0.276. DIAGNOSIS: 1. Syncope. 2. Frequent falls. 3. Brugada syndrome. 4. Status post subcutaneous implantable cardioverter defibrillator placement. 5. Acute kidney injury. 6. Atrial fibrillation with controlled ventricular response. 7. Rhabdomyolysis. 8. Lupus. 9. Muscle spasms. DISPOSITION: Ms. Hernandez will be monitored on telemetry. Her [employer] ICD was interrogated and there were no recorded shocks. There is no evidence of wound infection at this time. The patient is currently in atrial fibrillation; she has previous history of paroxysmal atrial fibrillation. The reason for her falls is currently unclear. There is no evidence of acute coronary syndrome. Her troponins are negative. I recommend to check orthostatic blood pressures. I recommend to continue correcting her electrolyte abnormalities. She should follow up with Dr. Cervantes, her primary flat bed operator. MD FRANKLYN Burciaga/MUNIRA , 07:54 PM , 08:35 PM FRANCISCO J
--- NOTE | 2018-01-19 10:57 | HHI.PR ---
Subjective Remarks The patient was resting comfortably in bed. She stated that her heart rate was doing well now. She said that she was told she may need to change her AICD. No acute concerns at this time. Objective Vitals Vital Signs Date Time Temp Pulse Resp B/P (MAP) Pulse Ox O2 Delivery O2 Flow Rate FiO2 01/19/18 06:00 65 33 96 01/19/18 06:00 65 01/19/18 04:00 98.7 68 23 141/85 (103) 97 01/19/18 04:00 68 01/19/18 02:00 61 01/19/18 00:00 63 01/19/18 00:00 98.9 63 20 141/84 (103) 98 01/18/18 23:53 69 142/67 01/18/18 20:00 99.2 54 111/69 (83) 98 01/18/18 16:11 20 01/18/18 15:20 48 01/18/18 14:44 98.7 49 16 119/59 (79) 94 01/18/18 11:34 98.6 38 12 113/56 (75) 99 I/O 01/18/18 01/18/18 01/18/18 01/19/18 01/19/18 01/19/18 07:00 15:00 23:00 07:00 15:00 23:00 Intake Total 1000 ml 240 ml Output Total 2500 ml Balance 1000 ml -2260 ml Intake Oral 240 ml IV Total 1000 ml Output Urine Total 2500 ml # Bowel Movements 0 Result Diagram: 01/19/18 0445 01/19/18 0445 Imaging Last Impressions Carotid Artery Ultrasound 01/18/18 0000 Signed Impressions: Service Date/Time: January 09:31 - CONCLUSION: 1. Minimal carotid plaque without flow limiting stenosis. 2. Antegrade vertebral artery flow bilaterally. Gil Valente MD Head CT 01/17/182230 Signed Impressions: Service Date/Time: Wednesday, January 17, 2018 23:27 - CONCLUSION: Normal examination. Vic Williamson Jr., MD Chest X-Ray 01/17/182230 Signed Impressions: Service Date/Time: Wednesday, January 17, 2018 22:37 - CONCLUSION: No evidence of acute cardiopulmonary disease. Brian Arrieta MD Objective Remarks GENERAL: This is a well-nourished, well-developed patient, in no apparent distress. SKIN: Warm and dry. HEENT: Normocephalic. Pupils equal round and reactive. Nose without bleeding. Airway patent. NECK: Trachea midline. CARDIOVASCULAR: Regular rate and rhythm without murmurs, gallops, or rubs. RESPIRATORY: Clear to auscultation. Breath sounds equal bilaterally. No wheezes , rales, or rhonchi. GASTROINTESTINAL: Abdomen soft, non-tender, nondistended. Bowel Sounds normoactive x4. MUSCULOSKELETAL: Extremities without clubbing, cyanosis, or edema. NEUROLOGICAL: Awake and alert. Oriented to time, place, person. No focal neuro deficit. Moves all extremities. Normal speech. PSYCH: Mood and affect appropriate. Medications and IVs Current Medications Medications (Trade) Dose Ordered Sig/Osito Route Start Time Stop Time Status Last Admin (NS Flush) 2 ml UNSCH PRN IV FLUSH 01/18/18 01:00 (NS Flush) 2 ml BID IV FLUSH 01/18/18 09:00 01/19/18 09:08 (Narcan Inj) 0.4 mg UNSCH PRN IV PUSH 01/18/18 01:00 (Valium) 10 mg TID PRN PO 01/18/18 01:45 Future Hold (Ferrous Sulfate) 325 mg BIDPC PO 01/18/18 09:00 01/19/18 09:01 (Synthroid) 125 mcg DAILY@0700 PO 01/18/18 07:00 01/19/18 05:45 (Mag-Ox) 400 mg DAILY PO 01/18/18 09:00 01/19/18 09:01 (Protonix) 40 mg HS PO 01/18/18 21:00 01/18/18 21:01 (KCl) 40 meq TID PO 01/18/18 09:00 01/19/18 09:01 (K-Phos) 500 mg PCHS PO 01/18/18 09:30 01/19/18 09:02 (Deltasone) 40 mg DAILY PO 01/18/18 09:00 01/19/18 09:01 (Aldactone) 25 mg DAILY PO 01/18/18 09:00 01/19/18 09:02 Sodium Chloride 1,000 ml @ 150 mls/hr Q6H40M IV 01/18/18 02:00 01/19/18 08:27 (Heparin Inj) 5,000 units Q8HR SQ 01/18/18 06:00 01/19/18 05:46 (Oramorph Sr) 15 mg Q8H PO 01/18/18 18:00 01/19/18 09:01 (Mag-Al Plus Susp Liq) 30 ml Q6H PRN PO 01/18/18 13:15 (Brethine Inj) 1 mg UNSCH PRN SQ 01/18/18 20:45 Dopamine HCl/ Dextrose 500 ml @ 7.144 mls/ hr TITRATE PRN IV 01/18/18 23:00 01/18/18 23:53 Miscellaneous Information Patient in critical care unit? Ass... Q361D .XX 01/18/18 23:45 01/18/18 23:45 (Chlorhexidine 2% Cloth) 3 pack DAILY@04 TOPICAL 01/19/18 04:00 01/23/18 04:01 01/19/18 04:00 (Chlorhexidine 2% Cloth) 3 pack UNSCH PRN TOPICAL 01/18/18 23:45 01/23/18 23:43 (Zofran Inj) 4 mg Q6HR PRN IV PUSH 01/19/18 01:15 01/19/18 09:08 (Macrobid) 100 mg BIDPC PO 01/19/18 10:00 A/P Problem List: (1) Brugada syndrome ICD Code: I49.8 - Other specified cardiac arrhythmias (2) Syncope ICD Code: R55 - Syncope and collapse Status: Acute (3) Rhabdomyolysis ICD Code: M62.82 - Rhabdomyolysis Status: Acute (4) S/P ICD (internal cardiac defibrillator) procedure ICD Code: Z95.810 - Presence of automatic (implantable) cardiac defibrillator Assessment and Plan Patient is a 42-year-old female with primary medical history of A. fib, Brugada syndrome status post AICD, hypothyroidism, SLE who came into the hospital for multiple syncopal episodes. Syncopal episode, multiple times Bradycardia Brugada syndrome, status post AICD -AICD interrogated, episodes of A. fib but otherwise appropriate. -Telemetry monitoring. Continues to be bradycardic at times. -Cardiology consult appreciated. Consider AICD upgrade. -Pain management. Patient on morphine 30 mg every 8 hours, will decrease dose to 15 mg every 8 hours for now secondary to bradycardia. -Not found to be orthostatic. Rhabdomyolysis Acute kidney injury -Creatinine 2.77 and CPK elevated over 3000 on admission. Improving. -IV fluids for hydration, increase NS 150ml/hr, monitor for fluid overload. -Monitor CK, monitor creatinine -Avoid nephrotoxins. Hypothyroidism -TSH is low. -Continue levothyroxine, decrease to 100 mcg daily. Lupus/ SLE/ Crohn's Chronic pain syndrome Muscle spasm -On prednisone 40 mg daily. -Cont home meds -Decrease dose of morphine, hold off on Robaxin. Decrease Valium to 5 mg BID as needed. DVT prop heparin Discharge Planning Await cardiology clearance Problem Qualifiers (1) Syncope: Qualified Codes: R55 - Syncope and collapse (2) Rhabdomyolysis: Qualified Codes: M62.82 - Rhabdomyolysis Kane Waters DO Jan 19, 2018 10:57
[2018-01-19] MEDS: NITROFURANTOIN MONOHYD MACROCR 100 MG CAP PO SCH ×2 (11:21→17:07)
[2018-01-19] MEDS: DIAZEPAM 5 MG TAB PO PRN (12:25)
--- NOTE | 2018-01-19 14:33 | EKG ---
Date Performed: 01/19/2018 Time Performed: 08:09:22 PTAGE: 42 years EKG: Sinus rhythm WITH FIRST DEGREE AV BLOCK POSSIBLE LEFT ATRIAL ENLARGEMENT INTRAVENTRICULAR CONDUCTION DELAY TYPE 1 BRUGADA PATTERN, EXCLUDE RECENT INFARCTION, CABG, MYOCARDITIS OR DRUG EFFECT ABNORMAL ECG PREVIOUS TRACING : 01/17/2018 22.32 No changes. Clinical correlation is recommended. DOCTOR: Sonido Michelle Interpretating Date/Time 01/19/2018 14:32:56
[2018-01-19] MEDS: SODIUM CHLORIDE 0.9% FLUSH 10 ML FLUSH IV FLUSH PRN (16:38)
--- NOTE | 2018-01-19 17:28 | PD.CARD.PN ---
Subjective Subjective Remarks C/o nausea, dizziness, generalized weakness, no CP or SOB Objective Medications Current Medications Medications (Trade) Dose Ordered Sig/Osito Route Start Time Stop Time Status Last Admin (NS Flush) 2 ml UNSCH PRN IV FLUSH 01/18/18 01:00 01/19/18 16:38 (NS Flush) 2 ml BID IV FLUSH 01/18/18 09:00 01/19/18 09:08 (Narcan Inj) 0.4 mg UNSCH PRN IV PUSH 01/18/18 01:00 (Valium) 10 mg TID PRN PO 01/18/18 01:45 Future Hold (Ferrous Sulfate) 325 mg BIDPC PO 01/18/18 09:00 01/19/18 17:07 (Mag-Ox) 400 mg DAILY PO 01/18/18 09:00 01/19/18 09:01 (Protonix) 40 mg HS PO 01/18/18 21:00 01/18/18 21:01 (KCl) 40 meq TID PO 01/18/18 09:00 01/19/18 17:07 (K-Phos) 500 mg PCHS PO 01/18/18 09:30 01/19/18 17:07 (Aldactone) 25 mg DAILY PO 01/18/18 09:00 01/19/18 09:02 Sodium Chloride 1,000 ml @ 150 mls/hr Q6H40M IV 01/18/18 02:00 01/19/18 13:31 (Heparin Inj) 5,000 units Q8HR SQ 01/18/18 06:00 01/19/18 13:31 (Oramorph Sr) 15 mg Q8H PO 01/18/18 18:00 01/19/18 17:07 (Mag-Al Plus Susp Liq) 30 ml Q6H PRN PO 01/18/18 13:15 (Brethine Inj) 1 mg UNSCH PRN SQ 01/18/18 20:45 Dopamine HCl/ Dextrose 500 ml @ 7.144 mls/ hr TITRATE PRN IV 01/18/18 23:00 01/18/18 23:53 Miscellaneous Information Patient in critical care unit? Ass... Q361D .XX 01/18/18 23:45 01/18/18 23:45 (Chlorhexidine 2% Cloth) 3 pack DAILY@04 TOPICAL 3/16/18 04:00 01/23/18 04:01 01/19/18 04:00 (Chlorhexidine 2% Cloth) 3 pack UNSCH PRN TOPICAL 01/18/18 23:45 01/23/18 23:43 (Zofran Inj) 4 mg Q6HR PRN IV PUSH 01/19/18 01:15 01/19/18 16:38 (Macrobid) 100 mg BIDPC PO 01/19/18 10:00 01/19/18 17:07 (Valium) 5 mg Q12H PRN PO 01/19/18 11:00 01/19/18 12:25 (Synthroid) 100 mcg DAILY@0600 PO 01/20/18 06:00 (Deltasone) 40 mg DAILY PO 01/20/18 09:00 Vital Signs / I&O Vital Signs Date Time Temp Pulse Resp B/P (MAP) Pulse Ox O2 Delivery O2 Flow Rate FiO2 01/19/18 16:00 98.0 67 17 119/61 (80) 99 01/19/18 16:00 67 01/19/18 14:00 59 01/19/18 12:00 58 01/19/18 12:00 98.2 58 15 104/63 (77) 98 01/19/18 10:00 76 01/19/18 08:00 98.3 63 24 135/72 (93) 97 01/19/18 08:00 63 01/19/18 06:00 65 33 96 01/19/18 06:00 65 01/19/18 04:00 98.7 68 23 141/85 (103) 97 01/19/18 04:00 68 01/19/18 02:00 61 01/19/18 00:00 63 01/19/18 00:00 98.9 63 20 141/84 (103) 98 01/18/18 23:53 69 142/67 01/18/18 20:00 99.2 54 111/69 (83) 98 I/O 01/18/18 01/18/18 01/18/18 01/19/18 01/19/18 01/19/18 07:00 15:00 23:00 07:00 15:00 23:00 Intake Total 1000 ml 240 ml 2000 ml Output Total 2500 ml Balance 1000 ml -2260 ml 2000 ml Intake Oral 240 ml IV Total 1000 ml 2000 ml Output Urine Total 2500 ml # Bowel Movements 0 Physical Exam GENERAL: In NAD SKIN: Warm and dry. HEAD: Normocephalic. EYES: No scleral icterus. No injection or drainage. NECK: Supple, trachea midline. No JVD or lymphadenopathy. CARDIOVASCULAR: Regular rate and rhythm without murmurs, gallops, or rubs. RESPIRATORY: Breath sounds equal bilaterally. No accessory muscle use. GASTROINTESTINAL: Abdomen soft, non-tender, nondistended. MUSCULOSKELETAL: No cyanosis, or edema. Chest wounds stable Laboratory Laboratory Tests Test 01/19/18 00:00 01/19/18 04:45 Nasal Screen MRSA (PCR) MRSA NOT DETECTED White Blood Count 9.0 TH/MM3 Red Blood Count 4.43 MIL/MM3 Hemoglobin 12.0 GM/DL Hematocrit 36.7 % Mean Corpuscular Volume 82.8 FL Mean Corpuscular Hemoglobin 27.1 PG Mean Corpuscular Hemoglobin Concent 32.8 % Red Cell Distribution Width 20.8 % Platelet Count 172 TH/MM3 Mean Platelet Volume 8.0 FL Neutrophils (%) (Auto) 85.1 % Lymphocytes (%) (Auto) 7.6 % Monocytes (%) (Auto) 6.8 % Eosinophils (%) (Auto) 0.1 % Basophils (%) (Auto) 0.4 % Neutrophils # (Auto) 7.7 TH/MM3 Lymphocytes # (Auto) 0.7 TH/MM3 Monocytes # (Auto) 0.6 TH/MM3 Eosinophils # (Auto) 0.0 TH/MM3 Basophils # (Auto) 0.0 TH/MM3 CBC Comment DIFF FINAL Differential Comment Blood Urea Nitrogen 24 MG/DL Creatinine 1.59 MG/DL Random Glucose 106 MG/DL Calcium Level 9.1 MG/DL Sodium Level 139 MEQ/L Potassium Level 3.5 MEQ/L Chloride Level 107 MEQ/L Carbon Dioxide Level 22.8 MEQ/L Anion Gap 9 MEQ/L Estimat Glomerular Filtration Rate 36 ML/MIN Total Creatine Kinase 2446 U/L Creatine Kinase MB 20.1 NG/ML Creatine Kinase MB % 0.8 % Assessment and Plan Problem List: (1) Syncope ICD Codes: R55 - Syncope and collapse Status: Acute (2) Bradycardia ICD Codes: R00.1 - Bradycardia, unspecified (3) Atrial fibrillation ICD Codes: I48.91 - Unspecified atrial fibrillation (4) Brugada syndrome ICD Codes: I49.8 - Other specified cardiac arrhythmias (5) SHABANA (acute kidney injury) ICD Codes: N17.9 - Acute kidney failure, unspecified (6) Rhabdomyolysis ICD Codes: M62.82 - Rhabdomyolysis Status: Acute (7) S/P ICD (internal cardiac defibrillator) procedure ICD Codes: Z95.810 - Presence of automatic (implantable) cardiac defibrillator Assessment and Plan In SR, on low dose dopamine. Parox a fib, bradycardia. Renal fx improving, continue electrolyte replacement. Continue ICU monitoring. S/p SQ defibrillator placement (no pacing capability) by Dr. Cervantes due to previous ICD lead displacement and infection. Continue renal fx and electrolyte monitoring. Continue hydration. Wean dopamine as tolerated. Dr. Cervantes, her primary stretcher drier operator, will be back to see her next week. Problem Qualifiers (1) Syncope: Qualified Codes: R55 - Syncope and collapse (2) Rhabdomyolysis: Qualified Codes: M62.82 - Rhabdomyolysis Sandra Craig MD Jan 19, 2018 17:28
[2018-01-19] MEDS ORDERED: LORazepam 2 MG/ML VIAL IV PUSH ONE (21:00)
[2018-01-19] MEDS: PANTOPRAZOLE SOD 40 MG DELAYED RELEASE TAB PO SCH (21:13)
[2018-01-20] VITALS (12 sets, daily range): BP systolic 115–135; BP diastolic 73–79; PULSE 55–74; RESP 12–25; TEMP 98.5–99.2; O2SAT 97–98
[2018-01-20] MEDS: HEPARIN SODIUM - SQ 10,000 UNITS/ML VIAL SQ SCH ×3 (01:54→14:04)
[2018-01-20] MEDS: MORPHINE SULFATE 15 MG CONTROLLED RELEASE TAB PO SCH ×3 (01:54→17:31)
[2018-01-20] MEDS: DIAZEPAM 5 MG TAB PO PRN ×2 (01:56→14:06)
[2018-01-20] MEDS: ONDANSETRON HCL 4 MG/2 ML VIAL IV PUSH PRN ×2 (01:58→08:44)
[2018-01-20] MEDS: CHLORHEXIDINE GLUCONATE 2 % 1 PACK (2 CLOTHS)(taper/protocol) TOPICAL SCH (04:00)
[2018-01-20] MEDS ORDERED: LORazepam 2 MG/ML VIAL IV SCH (05:30)
[2018-01-20] MEDS: LEVOTHYROXINE SODIUM 100 MCG TAB PO SCH (05:33)
[2018-01-20] MEDS ORDERED: LEVOTHYROXINE SODIUM 112 MCG TAB PO SCH (06:00)
[2018-01-20 07:35] LABS: HEMATOCRIT 38.7 % (35.0-46.0); HEMOGLOBIN 13.1 GM/DL (11.6-15.3); MEAN CORPUSCULAR HEMOGLOBIN 27.3 PG (27.0-34.0); MEAN CORPUSCULAR HGB CONC 33.7 % (32.0-36.0); MEAN PLATELET VOLUME 7.3 FL (7.0-11.0); PLATELET COUNT 234 TH/MM3 (150-450); RED BLOOD COUNT 4.78 MIL/MM3 (4.00-5.30); RED CELL DISTRIBUTION WIDTH 20.8 % (11.6-17.2); WHITE BLOOD COUNT 7.7 TH/MM3 (4.0-11.0)
[2018-01-20 07:43] LABS: BICARBONATE 26.7 MEQ/L (21.0-32.0); CALCIUM 8.9 MG/DL (8.5-10.1); CREATININE 1.27 MG/DL (0.50-1.00); MAGNESIUM 1.5 MG/DL (1.5-2.5)
[2018-01-20] MEDS: FERROUS SULFATE 325 MG (65 MG ELEMENTAL IRON) TAB PO SCH ×2 (08:34→17:30)
[2018-01-20] MEDS: POTASSIUM PHOSPHATE MONOBASIC 500 MG TAB PO SCH ×4 (08:34→19:21)
[2018-01-20] MEDS: NITROFURANTOIN MONOHYD MACROCR 100 MG CAP PO SCH ×2 (08:34→17:30)
[2018-01-20] MEDS: MAGNESIUM OXIDE 400 MG TAB PO SCH (08:35)
[2018-01-20] MEDS: SPIRONOLACTONE 25 MG TAB PO SCH (08:35)
[2018-01-20] MEDS: POTASSIUM CHLORIDE 20 MEQ CONTROLLED RELEASE TAB PO SCH ×3 (08:35→17:30)
[2018-01-20] MEDS: predniSONE 20 MG TAB PO SCH (08:35)
[2018-01-20] MEDS: SODIUM CHLOR 0.9% 1000 ML INJ 1,000 ML IV SCH (08:36)
[2018-01-20] MEDS: SODIUM CHLORIDE 0.9% FLUSH 10 ML FLUSH IV FLUSH SCH ×2 (08:44→18:23)
[2018-01-20] MEDS: DEXT 5%-NACL 0.9% 1000 ML INJ 1,000 ML IV SCH ×2 (09:26→17:31)
--- NOTE | 2018-01-20 11:07 | HHI.PR ---
Subjective Remarks The patient was complaining of nausea but said that Ativan has been helping. The patient realizes she will be evaluated by her primary sfdc architect on Monday. She has been trying to eat. She has been a little constipated. Objective Vitals Vital Signs Date Time Temp Pulse Resp B/P (MAP) Pulse Ox O2 Delivery O2 Flow Rate FiO2 01/20/18 10:00 74 01/20/18 08:00 98.5 59 16 122/76 (91) 98 01/20/18 08:00 59 01/20/18 06:00 59 01/20/18 05:36 65 132/88 01/20/18 04:00 60 01/20/18 04:00 98.9 60 25 135/76 (95) 97 01/20/18 02:54 20 01/20/18 02:00 63 01/20/18 00:00 55 12 115/73 (87) 97 01/20/18 00:00 55 01/19/18 22:00 65 01/19/18 20:00 62 01/19/18 20:00 98.6 62 20 130/78 (95) 98 01/19/18 19:00 57 125/86 01/19/18 18:00 60 01/19/18 16:00 98.0 67 17 119/61 (80) 99 01/19/18 16:00 67 01/19/18 14:00 59 01/19/18 12:00 58 01/19/18 12:00 98.2 58 15 104/63 (77) 98 I/O 01/19/18 01/19/18 01/19/18 01/20/18 01/20/18 01/20/18 07:00 15:00 23:00 07:00 15:00 23:00 Intake Total 240 ml 2000 ml 2547 ml 384 ml 1120 ml Output Total 2500 ml 1200 ml Balance -2260 ml 2000 ml 2547 ml -816 ml 1120 ml Intake Oral 240 ml 800 ml 240 ml IV Total 2000 ml 1747 ml 144 ml 1120 ml Output Urine Total 2500 ml 1200 ml # Voids 6 # Bowel Movements 0 0 Result Diagram: 01/20/18 0624 01/20/1824 Imaging Last Impressions Carotid Artery Ultrasound 01/18/18 0000 Signed Impressions: Service Date/Time: January 09:31 - CONCLUSION: 1. Minimal carotid plaque without flow limiting stenosis. 2. Antegrade vertebral artery flow bilaterally. Gil Valente MD Head CT 01/17/182230 Signed Impressions: Service Date/Time: Wednesday, January 17, 2018 23:27 - CONCLUSION: Normal examination. Vic Williamson Jr., MD Chest X-Ray 01/17/182230 Signed Impressions: Service Date/Time: Wednesday, January 17, 2018 22:37 - CONCLUSION: No evidence of acute cardiopulmonary disease. Brian Arrieta MD Objective Remarks GENERAL: This is a well-nourished, well-developed patient, in no apparent distress. SKIN: Warm and dry. HEENT: Normocephalic. Pupils equal round and reactive. Nose without bleeding. Airway patent. NECK: Trachea midline. CARDIOVASCULAR: Regular rate and rhythm without murmurs, gallops, or rubs. RESPIRATORY: Clear to auscultation. Breath sounds equal bilaterally. No wheezes , rales, or rhonchi. GASTROINTESTINAL: Abdomen soft, non-tender, nondistended. Bowel Sounds normoactive x4. MUSCULOSKELETAL: Extremities without clubbing, cyanosis, or edema. NEUROLOGICAL: Awake and alert. Oriented to time, place, person. No focal neuro deficit. Moves all extremities. Normal speech. PSYCH: Mood and affect appropriate. Medications and IVs Current Medications Medications (Trade) Dose Ordered Sig/Osito Route Start Time Stop Time Status Last Admin (NS Flush) 2 ml UNSCH PRN IV FLUSH 01/18/18 01:00 01/19/18 16:38 (NS Flush) 2 ml BID IV FLUSH 01/18/18 09:00 01/20/18 08:44 (Narcan Inj) 0.4 mg UNSCH PRN IV PUSH 01/18/18 01:00 (Valium) 10 mg TID PRN PO 01/18/18 01:45 Future Hold (Ferrous Sulfate) 325 mg BIDPC PO 01/18/18 09:00 01/20/18 08:34 (Mag-Ox) 400 mg DAILY PO 01/18/18 09:00 01/20/18 08:35 (Protonix) 40 mg HS PO 01/18/18 21:00 01/19/18 21:13 (KCl) 40 meq TID PO 01/18/18 09:00 01/20/18 08:35 (K-Phos) 500 mg PCHS PO 01/18/18 09:30 01/20/18 08:34 (Aldactone) 25 mg DAILY PO 01/18/18 09:00 01/20/18 08:35 (Heparin Inj) 5,000 units Q8HR SQ 01/18/18 06:00 01/20/18 05:35 (Oramorph Sr) 15 mg Q8H PO 01/18/18 18:00 01/20/18 09:26 (Mag-Al Plus Susp Liq) 30 ml Q6H PRN PO 01/18/18 13:15 (Brethine Inj) 1 mg UNSCH PRN SQ 01/18/18 20:45 Dopamine HCl/ Dextrose 500 ml @ 7.144 mls/ hr TITRATE PRN IV 01/18/18 23:00 01/18/18 23:53 Miscellaneous Information Patient in critical care unit? Ass... Q361D .XX 01/18/18 23:45 01/18/18 23:45 (Chlorhexidine 2% Cloth) 3 pack DAILY@04 TOPICAL 01/19/18 04:00 01/23/18 04:01 01/20/18 04:00 (Chlorhexidine 2% Cloth) 3 pack UNSCH PRN TOPICAL 01/18/18 23:45 01/23/18 23:43 (Zofran Inj) 4 mg Q6HR PRN IV PUSH 01/19/18 01:15 01/20/18 08:44 (Macrobid) 100 mg BIDPC PO 01/19/18 10:00 01/20/18 08:34 (Valium) 5 mg Q12H PRN PO 01/19/18 11:00 01/20/18 01:56 (Synthroid) 100 mcg DAILY@0600 PO 01/20/18 06:00 01/20/18 05:33 (Deltasone) 40 mg DAILY PO 01/20/18 09:00 01/20/18 08:35 Dextrose/Sodium Chloride 1,000 ml @ 125 mls/hr Q8H IV 01/20/18 09:00 01/20/18 09:26 (Ativan Inj) 0.5 mg Q6H PRN IV PUSH 01/20/18 10:30 A/P Problem List: (1) Brugada syndrome ICD Code: I49.8 - Other specified cardiac arrhythmias (2) Syncope ICD Code: R55 - Syncope and collapse Status: Acute (3) Rhabdomyolysis ICD Code: M62.82 - Rhabdomyolysis Status: Acute (4) S/P ICD (internal cardiac defibrillator) procedure ICD Code: Z95.810 - Presence of automatic (implantable) cardiac defibrillator Assessment and Plan Patient is a 42-year-old female with primary medical history of A. fib, Brugada syndrome status post AICD, hypothyroidism, SLE who came into the hospital for multiple syncopal episodes. Syncopal episode, multiple times Bradycardia Brugada syndrome, status post AICD -AICD interrogated, episodes of A. fib but otherwise appropriate. -Telemetry monitoring. Continues to be bradycardic at times. -Cardiology consult appreciated. Consider AICD upgrade. Will need to consult Dr. Cervantes on Monday 01/22. -Pain management. Patient on morphine 30 mg every 8 hours, will decrease dose to 15 mg every 8 hours for now secondary to bradycardia. -Not found to be orthostatic. Rhabdomyolysis Acute kidney injury -Creatinine 2.77 and CPK elevated over 3000 on admission. Improving with fluids. -IV fluids for hydration, switch to D5NS. -Monitor CK, monitor creatinine -Avoid nephrotoxins. Hypothyroidism -TSH is low. -Continue levothyroxine, decrease to 100 mcg daily. Lupus/ SLE/ Crohn's Chronic pain syndrome Muscle spasm -On prednisone 40 mg daily. -Cont home meds -Decrease dose of morphine, hold off on Robaxin. Decrease Valium to 5 mg BID as needed. N/V Ativan seems to help. - Ativan 0.5 mg IV q 6h as needed. DVT prop heparin Discharge Planning Await cardiology clearance Problem Qualifiers (1) Syncope: Qualified Codes: R55 - Syncope and collapse (2) Rhabdomyolysis: Qualified Codes: M62.82 - Rhabdomyolysis Kane Waters DO Jan 20, 2018 11:07
[2018-01-20] MEDS: LORazepam 2 MG/ML VIAL IV PUSH PRN ×2 (11:32→18:23)
[2018-01-20] MEDS: SODIUM CHLORIDE 0.9% FLUSH 10 ML FLUSH IV FLUSH PRN (11:32)
[2018-01-20] MEDS: DOPamine 800 MG/500 ML INJ 500 ML IV PRN (15:43)
[2018-01-20] MEDS: PANTOPRAZOLE SOD 40 MG DELAYED RELEASE TAB PO SCH (19:20)
[2018-01-21] VITALS (9 sets, daily range): BP systolic 98–141; BP diastolic 55–89; PULSE 53–98; RESP 15–21; TEMP 97.8–99.5; O2SAT 96–100
[2018-01-21] MEDS: HEPARIN SODIUM - SQ 10,000 UNITS/ML VIAL SQ SCH ×4 (00:38→20:13)
[2018-01-21] MEDS: LORazepam 2 MG/ML VIAL IV PUSH PRN ×2 (00:39→06:31)
[2018-01-21] MEDS: DEXT 5%-NACL 0.9% 1000 ML INJ 1,000 ML IV SCH ×3 (00:52→17:29)
[2018-01-21] MEDS: DIAZEPAM 5 MG TAB PO PRN (01:42)
[2018-01-21] MEDS: MORPHINE SULFATE 15 MG CONTROLLED RELEASE TAB PO SCH ×2 (01:42→09:47)
[2018-01-21] MEDS: CHLORHEXIDINE GLUCONATE 2 % 1 PACK (2 CLOTHS)(taper/protocol) TOPICAL SCH (04:00)
[2018-01-21] MEDS: LEVOTHYROXINE SODIUM 100 MCG TAB PO SCH (06:34)
[2018-01-21 07:42] LABS: BICARBONATE 22.9 MEQ/L (21.0-32.0); CALCIUM 8.8 MG/DL (8.5-10.1); CREATININE 1.13 MG/DL (0.50-1.00); MAGNESIUM 1.6 MG/DL (1.5-2.5); PHOSPHORUS 2.5 MG/DL (2.5-4.9)
[2018-01-21] MEDS: POTASSIUM PHOSPHATE MONOBASIC 500 MG TAB PO SCH ×4 (09:43→20:13)
[2018-01-21] MEDS: FERROUS SULFATE 325 MG (65 MG ELEMENTAL IRON) TAB PO SCH ×2 (09:44→17:28)
[2018-01-21] MEDS: predniSONE 20 MG TAB PO SCH (09:44)
[2018-01-21] MEDS: POTASSIUM CHLORIDE 20 MEQ CONTROLLED RELEASE TAB PO SCH ×3 (09:45→17:28)
[2018-01-21] MEDS: NITROFURANTOIN MONOHYD MACROCR 100 MG CAP PO SCH ×2 (09:45→17:27)
[2018-01-21] MEDS: MAGNESIUM OXIDE 400 MG TAB PO SCH (09:45)
[2018-01-21] MEDS: SPIRONOLACTONE 25 MG TAB PO SCH (09:45)
--- NOTE | 2018-01-21 10:35 | HHI.PR ---
Subjective Remarks The patient was resting in bed. She was complaining of muscle spasms in her back. She requested her Valium be adjusted to her home regimen, as well as her morphine. She had no other acute complaints. Objective Vitals Vital Signs Date Time Temp Pulse Resp B/P (MAP) Pulse Ox O2 Delivery O2 Flow Rate FiO2 01/21/18 06:36 71 133/97 01/21/18 06:00 59 01/21/18 04:00 56 01/21/18 04:00 98.2 56 21 121/75 (90) 97 01/21/18 02:42 20 01/21/18 02:00 62 01/21/18 00:00 99.5 53 15 121/76 (91) 98 01/21/18 00:00 53 01/20/18 22:00 69 01/20/18 20:00 62 01/20/18 19:00 64 137/84 01/20/18 18:00 65 01/20/18 16:00 68 01/20/18 16:00 98.9 68 19 124/79 (94) 98 01/20/18 15:43 75 112/59 01/20/18 14:00 56 01/20/18 12:00 99.2 63 12 126/78 (94) 98 01/20/18 12:00 63 I/O 01/20/18 01/20/18 01/20/18 01/21/18 01/21/18 01/21/18 07:00 15:00 23:00 07:00 15:00 23:00 Intake Total 384 ml 1120 ml 1000 ml 2122 ml Output Total 1200 ml Balance -816 ml 1120 ml 1000 ml 2122 ml Intake Oral 240 ml 1000 ml 360 ml IV Total 144 ml 1120 ml 1762 ml Output Urine Total 1200 ml # Voids 6 7 # Bowel Movements 0 1 0 Result Diagram: 01/20/18 0624 01/21/18 0629 Imaging Last Impressions Carotid Artery Ultrasound 01/18/18 0000 Signed Impressions: Service Date/Time: January 09:31 - CONCLUSION: 1. Minimal carotid plaque without flow limiting stenosis. 2. Antegrade vertebral artery flow bilaterally. Gil Valente MD Head CT 01/17/18 2231 Signed Impressions: Service Date/Time: Wednesday, January 17, 2018 23:27 - CONCLUSION: Normal examination. Vic Williamson Jr., MD Chest X-Ray 01/17/181 Signed Impressions: Service Date/Time: Wednesday, January 17, 2018 22:37 - CONCLUSION: No evidence of acute cardiopulmonary disease. Brian Arrieta MD Objective Remarks GENERAL: This is a well-nourished, well-developed patient, in no apparent distress. SKIN: Warm and dry. HEENT: Normocephalic. Pupils equal round and reactive. Nose without bleeding. Airway patent. NECK: Trachea midline. CARDIOVASCULAR: Regular rate and rhythm without murmurs, gallops, or rubs. RESPIRATORY: Clear to auscultation. Breath sounds equal bilaterally. No wheezes , rales, or rhonchi. GASTROINTESTINAL: Abdomen soft, non-tender, nondistended. Bowel Sounds normoactive x4. MUSCULOSKELETAL: Extremities without clubbing, cyanosis, or edema. Mild tenderness to paraspinal musculature. NEUROLOGICAL: Awake and alert. Oriented to time, place, person. No focal neuro deficit. Moves all extremities. Normal speech. PSYCH: Mood and affect appropriate. Medications and IVs Current Medications Medications (Trade) Dose Ordered Sig/Osito Route Start Time Stop Time Status Last Admin (NS Flush) 2 ml UNSCH PRN IV FLUSH 01/18/18 01:00 01/20/18 11:32 (NS Flush) 2 ml BID IV FLUSH 01/18/18 09:00 01/20/18 18:23 (Narcan Inj) 0.4 mg UNSCH PRN IV PUSH 01/18/18 01:00 (Valium) 10 mg TID PRN PO 01/18/18 01:45 Future Hold (Ferrous Sulfate) 325 mg BIDPC PO 01/18/18 09:00 01/21/18 09:44 (Mag-Ox) 400 mg DAILY PO 01/18/18 09:00 01/21/18 09:45 (Protonix) 40 mg HS PO 01/18/18 21:00 01/20/18 19:20 (KCl) 40 meq TID PO 01/18/18 09:00 01/21/18 09:45 (K-Phos) 500 mg PCHS PO 01/18/18 09:30 01/21/18 09:43 (Aldactone) 25 mg DAILY PO 01/18/18 09:00 01/21/18 09:45 (Heparin Inj) 5,000 units Q8HR SQ 01/18/18 06:00 01/21/18 06:34 (Oramorph Sr) 15 mg Q8H PO 01/18/18 18:00 01/21/18 01:42 (Mag-Al Plus Susp Liq) 30 ml Q6H PRN PO 01/18/18 13:15 (Brethine Inj) 1 mg UNSCH PRN SQ 01/18/18 20:45 Dopamine HCl/ Dextrose 500 ml @ 7.144 mls/ hr TITRATE PRN IV 01/18/18 23:00 01/20/18 15:43 Miscellaneous Information Patient in critical care unit? Ass... Q361D .XX 01/18/18 23:45 01/18/18 23:45 (Chlorhexidine 2% Cloth) 3 pack DAILY@04 TOPICAL 01/19/18 04:00 01/23/18 04:01 01/20/18 04:00 (Chlorhexidine 2% Cloth) 3 pack UNSCH PRN TOPICAL 01/18/18 23:45 01/23/18 23:43 (Zofran Inj) 4 mg Q6HR PRN IV PUSH 01/19/18 01:15 01/20/18 08:44 (Macrobid) 100 mg BIDPC PO 01/19/18 10:00 01/21/18 09:45 (Valium) 5 mg Q12H PRN PO 01/19/18 11:00 01/21/18 01:42 (Synthroid) 100 mcg DAILY@0600 PO 01/20/18 06:00 01/21/18 06:34 (Deltasone) 40 mg DAILY PO 01/20/18 09:00 01/21/18 09:44 Dextrose/Sodium Chloride 1,000 ml @ 125 mls/hr Q8H IV 01/20/18 09:00 01/21/18 09:37 (Ativan Inj) 0.5 mg Q6H PRN IV PUSH 01/20/18 10:30 01/21/18 06:31 A/P Problem List: (1) Brugada syndrome ICD Code: I49.8 - Other specified cardiac arrhythmias (2) Syncope ICD Code: R55 - Syncope and collapse Status: Acute (3) Rhabdomyolysis ICD Code: M62.82 - Rhabdomyolysis Status: Acute (4) S/P ICD (internal cardiac defibrillator) procedure ICD Code: Z95.810 - Presence of automatic (implantable) cardiac defibrillator Assessment and Plan Patient is a 42-year-old female with primary medical history of A. fib, Brugada syndrome status post AICD, hypothyroidism, SLE who came into the hospital for multiple syncopal episodes. Syncopal episode, multiple times Bradycardia Brugada syndrome, status post AICD -AICD interrogated, episodes of A. fib but otherwise appropriate. -Telemetry monitoring. Bradycardia has improved on dopamine. Continue infusion. -Cardiology consult appreciated. Consider AICD upgrade. Will need to consult Dr. Cervantes tomorrow for further evaluation. -Not found to be orthostatic. Rhabdomyolysis Acute kidney injury -Creatinine 2.77 and CPK elevated over 3000 on admission. Improving with fluids. -IV fluids for hydration, switched to D5NS. -monitor creatinine -Avoid nephrotoxins. Hypothyroidism -TSH is low. -Continue levothyroxine, decrease to 100 mcg daily. Lupus/ SLE/ Crohn's Chronic pain syndrome Muscle spasm -On prednisone 40 mg daily. -Cont home meds -Resume home pain regimen. DVT prop heparin Discharge Planning Await cardiology clearance Problem Qualifiers (1) Syncope: Qualified Codes: R55 - Syncope and collapse (2) Rhabdomyolysis: Qualified Codes: M62.82 - Rhabdomyolysis Kane Waters DO Jan 21, 2018 10:35
[2018-01-21] MEDS: DIAZEPAM 10 MG TAB PO PRN ×2 (11:40→17:34)
[2018-01-21] MEDS ORDERED: MORPHINE SULFATE 15 MG CONTROLLED RELEASE TAB PO ONE (11:45)
[2018-01-21] MEDS: MORPHINE SULFATE 30 MG CONTROLLED RELEASE TAB PO SCH (17:29)
[2018-01-21] MEDS: PANTOPRAZOLE SOD 40 MG DELAYED RELEASE TAB PO SCH (20:13)
[2018-01-21] MEDS: SODIUM CHLORIDE 0.9% FLUSH 10 ML FLUSH IV FLUSH SCH (21:00)
[2018-01-22] VITALS (18 sets, daily range): BP systolic 89–113; BP diastolic 52–69; PULSE 61–93; RESP 10–27; TEMP 97.7–98.5; O2SAT 96–100
[2018-01-22] MEDS: MORPHINE SULFATE 30 MG CONTROLLED RELEASE TAB PO SCH ×3 (01:26→17:31)
[2018-01-22] MEDS: DIAZEPAM 10 MG TAB PO PRN ×3 (01:26→18:04)
[2018-01-22] MEDS: CHLORHEXIDINE GLUCONATE 2 % 1 PACK (2 CLOTHS)(taper/protocol) TOPICAL SCH (04:00)
[2018-01-22] MEDS: HEPARIN SODIUM - SQ 10,000 UNITS/ML VIAL SQ SCH ×3 (06:18→22:03)
[2018-01-22] MEDS: LEVOTHYROXINE SODIUM 100 MCG TAB PO SCH (06:18)
[2018-01-22 08:32] LABS: CREATININE 1.14 MG/DL (0.50-1.00)
[2018-01-22 08:34] LABS: BICARBONATE 23.2 MEQ/L (21.0-32.0); CALCIUM 8.5 MG/DL (8.5-10.1); MAGNESIUM 1.4 MG/DL (1.5-2.5)
[2018-01-22] MEDS: DEXT 5%-NACL 0.9% 1000 ML INJ 1,000 ML IV SCH ×3 (09:00→22:04)
[2018-01-22] MEDS: POTASSIUM CHLORIDE 20 MEQ CONTROLLED RELEASE TAB PO SCH ×3 (09:15→17:32)
[2018-01-22] MEDS: POTASSIUM PHOSPHATE MONOBASIC 500 MG TAB PO SCH ×4 (09:15→22:03)
[2018-01-22] MEDS: NITROFURANTOIN MONOHYD MACROCR 100 MG CAP PO SCH ×2 (09:15→17:32)
[2018-01-22] MEDS: FERROUS SULFATE 325 MG (65 MG ELEMENTAL IRON) TAB PO SCH ×2 (09:16→17:32)
[2018-01-22] MEDS: predniSONE 20 MG TAB PO SCH (09:16)
[2018-01-22] MEDS: MAGNESIUM OXIDE 400 MG TAB PO SCH (09:16)
[2018-01-22] MEDS: SPIRONOLACTONE 25 MG TAB PO SCH (09:16)
[2018-01-22] MEDS: SODIUM CHLORIDE 0.9% FLUSH 10 ML FLUSH IV FLUSH SCH ×2 (09:17→22:04)
--- NOTE | 2018-01-22 11:36 | HHI.PR ---
Subjective Remarks The patient said that the dopamine infiltrated multiple times and she was stuck with many needles overnight. She has been off of the dopamine since last evening. She wants to know if she could go home soon. She was hoping she didn' t require any further procedures. Discussed with nursing. Objective Vitals Vital Signs Date Time Temp Pulse Resp B/P (MAP) Pulse Ox O2 Delivery O2 Flow Rate FiO2 01/22/18 06:00 70 01/22/18 04:23 19 01/22/18 04:00 98.5 75 15 110/69 (83) 98 01/22/18 04:00 75 01/22/18 02:00 71 01/22/18 00:00 78 01/22/18 00:00 97.7 78 17 96/55 (69) 97 01/21/18 22:00 85 01/21/18 20:00 77 01/21/18 20:00 98.0 77 16 98/55 (69) 96 01/21/18 16:00 97.8 98 18 113/71 (85) 97 01/21/18 12:00 98.2 82 16 127/82 (97) 100 I/O 01/21/18 01/21/18 01/21/18 01/22/18 01/22/18 01/22/18 07:00 15:00 23:00 07:00 15:00 23:00 Intake Total 2122 ml 1400 ml 500 ml Balance 2122 ml 1400 ml 500 ml Intake Oral 360 ml 1400 ml 500 ml IV Total 1762 ml # Voids 7 4 2 # Bowel Movements 0 2 1 Result Diagram: 01/20/18 0624 01/22/18 0626 Imaging Last Impressions Carotid Artery Ultrasound 01/18/18 0000 Signed Impressions: Service Date/Time: January 09:31 - CONCLUSION: 1. Minimal carotid plaque without flow limiting stenosis. 2. Antegrade vertebral artery flow bilaterally. Gil Valente MD Head CT 01/17/182230 Signed Impressions: Service Date/Time: Wednesday, January 17, 2018 23:27 - CONCLUSION: Normal examination. Vic Williamson Jr., MD Chest X-Ray 01/17/182230 Signed Impressions: Service Date/Time: Wednesday, January 17, 2018 22:37 - CONCLUSION: No evidence of acute cardiopulmonary disease. Brian Arrieta MD Objective Remarks GENERAL: This is a well-nourished, well-developed patient, in no apparent distress. SKIN: Warm and dry. HEENT: Normocephalic. Pupils equal round and reactive. Nose without bleeding. Airway patent. NECK: Trachea midline. CARDIOVASCULAR: Regular rate and rhythm without murmurs, gallops, or rubs. RESPIRATORY: Clear to auscultation. Breath sounds equal bilaterally. No wheezes , rales, or rhonchi. GASTROINTESTINAL: Abdomen soft, non-tender, nondistended. Bowel Sounds normoactive x4. MUSCULOSKELETAL: Extremities without clubbing, cyanosis, or edema. Mild tenderness to paraspinal musculature. NEUROLOGICAL: Awake and alert. Oriented to time, place, person. No focal neuro deficit. Moves all extremities. Normal speech. PSYCH: Mood and affect appropriate. Medications and IVs Current Medications Medications (Trade) Dose Ordered Sig/Osito Route Start Time Stop Time Status Last Admin (NS Flush) 2 ml UNSCH PRN IV FLUSH 01/18/18 01:00 01/20/18 11:32 (NS Flush) 2 ml BID IV FLUSH 01/18/18 09:00 01/22/18 09:17 (Narcan Inj) 0.4 mg UNSCH PRN IV PUSH 01/18/18 01:00 (Valium) 10 mg TID PRN PO 01/18/18 01:45 Future hold 01/22/18 01:26 (Ferrous Sulfate) 325 mg BIDPC PO 01/18/18 09:00 01/22/18 09:16 (Mag-Ox) 400 mg DAILY PO 01/18/18 09:00 01/22/18 09:16 (Protonix) 40 mg HS PO 01/18/18 21:00 01/21/18 20:13 (KCl) 40 meq TID PO 01/18/18 09:00 01/22/18 09:15 (K-Phos) 500 mg PCHS PO 01/18/18 09:30 01/22/18 09:15 (Aldactone) 25 mg DAILY PO 01/18/18 09:00 01/22/18 09:16 (Heparin Inj) 5,000 units Q8HR SQ 01/18/18 06:00 01/22/18 06:18 (Mag-Al Plus Susp Liq) 30 ml Q6H PRN PO 01/18/18 13:15 (Brethine Inj) 1 mg UNSCH PRN SQ 01/18/18 20:45 01/21/18 14:06 Dopamine HCl/ Dextrose 500 ml @ 7.144 mls/ hr TITRATE PRN IV 01/18/18 23:00 01/20/18 15:43 Miscellaneous Information Patient in critical care unit? Ass... Q361D .XX 01/18/18 23:45 01/18/18 23:45 (Chlorhexidine 2% Cloth) 3 pack DAILY@04 TOPICAL 01/19/18 04:00 01/23/18 04:01 01/20/18 04:00 (Chlorhexidine 2% Cloth) 3 pack UNSCH PRN TOPICAL 01/18/18 23:45 01/23/18 23:43 (Zofran Inj) 4 mg Q6HR PRN IV PUSH 01/19/18 01:15 01/20/18 08:44 (Macrobid) 100 mg BIDPC PO 01/19/18 10:00 01/22/18 09:15 (Synthroid) 100 mcg DAILY@0600 PO 01/20/18 06:00 01/22/18 06:18 (Deltasone) 40 mg DAILY PO 01/20/18 09:00 01/22/18 09:16 Dextrose/Sodium Chloride 1,000 ml @ 125 mls/hr Q8H IV 01/20/18 09:00 01/22/18 11:26 (Oramorph Sr) 30 mg Q8H PO 01/21/18 18:00 01/22/18 09:17 A/P Problem List: (1) Brugada syndrome ICD Code: I49.8 - Other specified cardiac arrhythmias (2) Syncope ICD Code: R55 - Syncope and collapse Status: Acute (3) Rhabdomyolysis ICD Code: M62.82 - Rhabdomyolysis Status: Acute (4) S/P ICD (internal cardiac defibrillator) procedure ICD Code: Z95.810 - Presence of automatic (implantable) cardiac defibrillator Assessment and Plan Patient is a 42-year-old female with primary medical history of A. fib, Brugada syndrome status post AICD, hypothyroidism, SLE who came into the hospital for multiple syncopal episodes. Syncopal episode, multiple times, not found to be orthostatic Bradycardia Brugada syndrome, status post AICD -AICD interrogated, episodes of A. fib but otherwise appropriate. -Telemetry monitoring. Bradycardia has improved on dopamine. Infusion has been discontinued secondary to multiple infiltrations. Heart rate is currently stable. -Cardiology consult appreciated. Consider AICD upgrade. Dr. Craig requested that Dr. Cervantes be consulted 01/22 for further work-up. Consult has been placed. Rhabdomyolysis Acute kidney injury -Creatinine 2.77 and CPK elevated over 3000 on admission. Improving with fluids. -IV fluids for hydration, switched to D5NS. -monitor creatinine -Avoid nephrotoxins. Hypothyroidism -TSH is low. -Continue levothyroxine, decreased to 100 mcg daily. Will need outpt labs in about four weeks. Lupus/ SLE/ Crohn's Chronic pain syndrome Muscle spasm -On prednisone 40 mg daily. -Cont home meds -Resume home pain regimen. - the pt requests refills on her home medications at the time of discharge including Valium for a few days. She does not need pain meds filled as she follows with the pain clinic. DVT prop heparin Discharge Planning Await Dr. Cervantes's input Problem Qualifiers (1) Syncope: Qualified Codes: R55 - Syncope and collapse (2) Rhabdomyolysis: Qualified Codes: M62.82 - Rhabdomyolysis Kane Waters DO Jan 22, 2018 11:36
[2018-01-22] MEDS: MAGNESIUM SULFATE 1 GM PREMIX 100 ML IV SCH ×2 (13:00→14:46)
[2018-01-22] MEDS ORDERED: MAGNESIUM SULFATE 1 GM PREMIX 100 ML IV SCH (20:00)
[2018-01-22] MEDS: PANTOPRAZOLE SOD 40 MG DELAYED RELEASE TAB PO SCH (22:03)
[2018-01-23] VITALS (18 sets, daily range): BP systolic 87–116; BP diastolic 50–68; PULSE 57–77; RESP 11–23; TEMP 97.7–98.5; O2SAT 96–100
[2018-01-23] MEDS: DEXT 5%-NACL 0.9% 1000 ML INJ 1,000 ML IV SCH ×4 (01:00→20:40)
[2018-01-23] MEDS: DIAZEPAM 10 MG TAB PO PRN ×3 (01:19→19:29)
[2018-01-23] MEDS: MORPHINE SULFATE 30 MG CONTROLLED RELEASE TAB PO SCH ×3 (01:20→19:29)
[2018-01-23] MEDS: CHLORHEXIDINE GLUCONATE 2 % 1 PACK (2 CLOTHS)(taper/protocol) TOPICAL SCH (04:00)
[2018-01-23] MEDS: HEPARIN SODIUM - SQ 10,000 UNITS/ML VIAL SQ SCH ×3 (05:03→20:39)
[2018-01-23] MEDS: LEVOTHYROXINE SODIUM 100 MCG TAB PO SCH (05:03)
[2018-01-23 06:30] LABS: BICARBONATE 23.7 MEQ/L (21.0-32.0); CALCIUM 8.9 MG/DL (8.5-10.1); CREATININE 1.32 MG/DL (0.50-1.00); MAGNESIUM 1.9 MG/DL (1.5-2.5)
--- NOTE | 2018-01-23 08:35 | HHI.PR ---
Subjective Remarks Follow-up syncope, bradycardia. Patient denies lightheadedness, dizziness. Does report ongoing chest discomfort. Denies dyspnea. Objective Vitals Vital Signs Date Time Temp Pulse Resp B/P (MAP) Pulse Ox O2 Delivery O2 Flow Rate FiO2 01/23/18 06:00 75 01/23/18 04:00 98.2 65 11 116/68 (84) 100 01/23/18 04:00 65 01/23/18 02:00 57 01/23/18 00:00 97.9 66 11 106/57 (73) 98 01/23/18 00:00 66 01/22/18 22:00 63 01/22/18 20:00 98.2 74 18 94/53 (67) 99 01/22/18 20:00 74 01/22/18 20:00 01/22/18 18:00 66 18 94/52 (66) 97 01/22/18 18:00 66 01/22/18 17:00 62 01/22/18 17:00 62 17 109/62 (78) 98 01/22/18 16:00 98.5 80 16 106/66 (79) 99 01/22/18 16:00 80 01/22/18 15:00 75 27 98/60 (73) 97 01/22/18 15:00 75 01/22/18 14:00 61 14 89/54 (66) 96 01/22/18 14:00 61 01/22/18 13:00 75 01/22/18 13:00 75 27 109/55 (73) 100 01/22/18 12:00 79 16 107/62 (77) 99 01/22/18 12:00 79 01/22/18 11:00 93 01/22/18 11:00 93 18 112/60 (77) 97 01/22/18 10:00 83 21 113/55 (74) 100 01/22/18 10:00 83 01/22/18 09:00 62 10 93/56 (68) 97 01/22/18 09:00 62 I/O 01/22/18 01/22/18 01/22/18 01/23/18 01/23/18 01/23/18 07:00 15:00 23:00 07:00 15:00 23:00 Intake Total 500 ml 1560 ml 1500 ml Output Total 1000 ml Balance 500 ml 560 ml 1500 ml Intake Oral 500 ml 560 ml 400 ml IV Total 1000 ml 1100 ml Output Urine Total 1000 ml # Voids 2 7 # Bowel Movements 1 1 1 Result Diagram: 01/20/18 0624 01/23/18 0430 Imaging Last Impressions Carotid Artery Ultrasound 01/18/18 0000 Signed Impressions: Service Date/Time: January 09:31 - CONCLUSION: 1. Minimal carotid plaque without flow limiting stenosis. 2. Antegrade vertebral artery flow bilaterally. Gil Valente MD Head CT 01/17/182230 Signed Impressions: Service Date/Time: Wednesday, January 17, 2018 23:27 - CONCLUSION: Normal examination. Vic Williamson Jr., MD Chest X-Ray 01/17/182230 Signed Impressions: Service Date/Time: Wednesday, January 17, 2018 22:37 - CONCLUSION: No evidence of acute cardiopulmonary disease. Brian Arrieta MD Objective Remarks General: No acute distress. Heart: Regular rate and rhythm. No murmur. Lungs: Clear to auscultation bilaterally. No wheezes, rales, or rhonchi. Breathing is nonlabored. Abdomen: Soft, nontender, nondistended. Extremities: No lower extremity edema. Psych: Alert and oriented. Procedures None Urinary Catheter: No Vascular Central Line Catheter: No A/P Problem List: (1) Brugada syndrome ICD Code: I49.8 - Other specified cardiac arrhythmias (2) Syncope ICD Code: R55 - Syncope and collapse Status: Acute (3) Rhabdomyolysis ICD Code: M62.82 - Rhabdomyolysis Status: Acute (4) S/P ICD (internal cardiac defibrillator) procedure ICD Code: Z95.810 - Presence of automatic (implantable) cardiac defibrillator Assessment and Plan 1. Syncope, bradycardia, Brugada syndrome: Management per cardiology. Electrophysiology considering replacement of AICD. Off dopamine drip. Continue telemetry monitoring. 2. Rhabdomyolysis: Resolved. 3. Acute kidney injury: Creatinine has improved overall during the hospitalization. Slightly increased today. Continue IV fluids. Discussed with patient importance of hydration. Monitor BUN and creatinine. Avoid nephrotoxins. 4. Hypothyroidism: Continue levothyroxine. Follow-up labs as outpatient in about 4 weeks. 5. SLE, Crohn's disease, chronic pain syndrome: Continue prednisone, home pain medication regimen. Follow-up with pain management as outpatient. 6. DVT prophylaxis: Heparin. Discharge Planning Pending further clinical improvement, cardiology recommendations. Problem Qualifiers (1) Syncope: Qualified Codes: R55 - Syncope and collapse (2) Rhabdomyolysis: Qualified Codes: M62.82 - Rhabdomyolysis Rocky Painting MD Jan 23, 2018 08:35
--- NOTE | 2018-01-23 09:28 | MB ---
cc: Tamara Cervantes MD DATE OF CONSULT: 01/22/2018 REASON FOR CONSULTATION: Syncopal episode, SVT bradycardia. HISTORY OF PRESENT ILLNESS: Mrs. Hernandez is a 42-year-old female with history of Brugada syndrome, renal insufficiency, lupus, seizure, with defibrillator implanted. Device was removed because of bacteremia. She has a subcutaneous defibrillator that was implanted at [facility]. The patient was admitted due to dizziness and bradycardia. Dopamine was initiated. The patient back into normal sinus rhythm. The patient was previously seen by Dr. Craig. I was consulted for further management. The chart was reviewed. The patient was evaluated. ALLERGIES: PROMETHAZINE, PROCHLORPERAZINE, PENICILLIN, KETOROLAC, FISH. SOCIAL HISTORY: Negative for smoking and drinking. FAMILY HISTORY: Noncontributory to her current medical condition. MEDICATIONS: The patient is currently on dopamine, that was discontinued, she is on Valium, she is on ferrous sulfate, Levoxyl 100 mcg a day, she is on magnesium, morphine, Reglan, potassium, prednisone, Aldactone 25 mg a day. REVIEW OF SYSTEMS: No chest pain, no chest discomfort, no dizziness since hospitalization, no fever. PHYSICAL EXAMINATION: GENERAL: Alert, fully oriented. VITAL SIGNS: Blood pressure is 90/52, pulse 71, respiratory rate 18. LUNGS: Ventilated. HEART: S1, S2. No gallop. No murmur. ABDOMEN: Soft. No masses. No bruit. EXTREMITIES: No edema. SKIN: Left infraclavicular area with clean surgical scar. STUDY: Electrocardiogram shows sinus rhythm, prolonged QT interval. LABORATORY DATA: Hemoglobin is 13.1, white blood cell 7.7, potassium 2.8, creatinine 1.14. ASSESSMENT AND RECOMMENDATIONS: Mrs. Hernandez is currently stable. She is not in sinus angela. She is in sinus rhythm. I am not sure the reason of her bradycardia. At this point, my recommendations is observation. If there is no significant bradycardia in the next 24 hours, that means there would be no need for pacing support. Case discussed with her. Further decision will be taken in the morning. Tamara Cervantes MD /MUNIRA , 06:23 PM , 08:53 PM
[2018-01-23] MEDS: MAGNESIUM OXIDE 400 MG TAB PO SCH (10:30)
[2018-01-23] MEDS: NITROFURANTOIN MONOHYD MACROCR 100 MG CAP PO SCH ×2 (10:30→19:30)
[2018-01-23] MEDS: POTASSIUM PHOSPHATE MONOBASIC 500 MG TAB PO SCH ×4 (10:31→20:39)
[2018-01-23] MEDS: POTASSIUM CHLORIDE 20 MEQ CONTROLLED RELEASE TAB PO SCH ×3 (10:31→19:29)
[2018-01-23] MEDS: SPIRONOLACTONE 25 MG TAB PO SCH (10:31)
[2018-01-23] MEDS: FERROUS SULFATE 325 MG (65 MG ELEMENTAL IRON) TAB PO SCH ×2 (10:31→19:28)
[2018-01-23] MEDS: predniSONE 20 MG TAB PO SCH (10:32)
[2018-01-23] MEDS: SODIUM CHLORIDE 0.9% FLUSH 10 ML FLUSH IV FLUSH SCH ×2 (10:32→20:39)
[2018-01-23] MEDS: PANTOPRAZOLE SOD 40 MG DELAYED RELEASE TAB PO SCH (19:29)
--- NOTE | 2018-01-23 23:33 | HHI.PR ---
Subjective Remarks Feeling better Objective Vital Signs Date Time Temp Pulse Resp B/P (MAP) Pulse Ox O2 Delivery O2 Flow Rate FiO2 01/23/18 18:00 64 14 99/52 (68) 97 01/23/18 18:00 64 01/23/18 17:00 66 12 97/53 (68) 97 01/23/18 17:00 66 01/23/18 16:00 65 01/23/18 16:00 97.7 65 14 87/50 (62) 96 01/23/18 15:00 71 01/23/18 15:00 71 17 102/56 (71) 97 01/23/18 14:00 64 13 98/56 (70) 96 01/23/18 14:00 64 01/23/18 13:00 73 21 92/54 (67) 97 01/23/18 13:00 73 01/23/18 12:00 74 23 91/55 (67) 98 01/23/18 12:00 74 01/23/18 11:00 69 16 95/54 (68) 97 01/23/18 11:00 69 01/23/18 10:00 72 14 98/51 (67) 96 01/23/18 10:00 72 01/23/18 09:00 64 12 106/57 (73) 98 01/23/18 09:00 64 01/23/18 08:00 67 01/23/18 08:00 67 11 100/58 (72) 97 01/23/18 07:00 68 01/23/18 07:00 68 12 98/55 (69) 98 01/23/18 06:00 75 01/23/18 04:00 98.2 65 11 116/68 (84) 100 01/23/18 04:00 65 01/23/18 02:00 57 01/23/18 00:00 97.9 66 11 106/57 (73) 98 01/23/18 00:00 66 I/O 01/23/18 01/23/18 01/23/18 01/24/18 01/24/18 01/24/18 07:00 15:00 23:00 07:00 15:00 23:00 Intake Total 1500 ml 2700 ml Balance 1500 ml 2700 ml Intake Oral 400 ml 700 ml IV Total 1100 ml 2000 ml # Voids 7 4 # Bowel Movements 1 0 Result Diagram: 01/20/18 0624 01/23/18 0430 Imaging Alert, fully oriented Lungs: ventilated Heart: S1, S2 regular, no gallop Abdomen: soft, no mass Ext: no edema Last Impressions Carotid Artery Ultrasound 01/18/18 0000 Signed Impressions: Service Date/Time: January 09:31 - CONCLUSION: 1. Minimal carotid plaque without flow limiting stenosis. 2. Antegrade vertebral artery flow bilaterally. Gil Valente MD Head CT 01/17/182230 Signed Impressions: Service Date/Time: Wednesday, January 17, 2018 23:27 - CONCLUSION: Normal examination. Vic Williamson Jr., MD Chest X-Ray 01/17/182230 Signed Impressions: Service Date/Time: Wednesday, January 17, 2018 22:37 - CONCLUSION: No evidence of acute cardiopulmonary disease. Brian Arrieta MD Current Medications Medications (Trade) Dose Ordered Sig/Osito Route Start Time Stop Time Status Last Admin (NS Flush) 2 ml UNSCH PRN IV FLUSH 01/18/18 01:00 01/20/18 11:32 (NS Flush) 2 ml BID IV FLUSH 01/18/18 09:00 01/23/18 20:39 (Narcan Inj) 0.4 mg UNSCH PRN IV PUSH 01/18/18 01:00 (Valium) 10 mg TID PRN PO 01/18/18 01:45 Future hold 01/23/18 19:29 (Ferrous Sulfate) 325 mg BIDPC PO 01/18/18 09:00 01/23/18 19:28 (Mag-Ox) 400 mg DAILY PO 01/18/18 09:00 01/23/18 10:30 (Protonix) 40 mg HS PO 01/18/18 21:00 01/23/18 19:29 (KCl) 40 meq TID PO 01/18/18 09:00 01/23/18 19:29 (K-Phos) 500 mg PCHS PO 01/18/18 09:30 01/23/18 20:39 (Aldactone) 25 mg DAILY PO 01/18/18 09:00 01/23/18 10:31 (Heparin Inj) 5,000 units Q8HR SQ 01/18/18 06:00 01/23/18 20:39 (Mag-Al Plus Susp Liq) 30 ml Q6H PRN PO 01/18/18 13:15 (Brethine Inj) 1 mg UNSCH PRN SQ 01/18/18 20:45 01/21/18 14:06 Dopamine HCl/ Dextrose 500 ml @ 7.144 mls/ hr TITRATE PRN IV 01/18/18 23:00 01/20/18 15:43 Miscellaneous Information Patient in critical care unit? Ass... Q361D .XX 01/18/18 23:45 01/18/18 23:45 (Chlorhexidine 2% Cloth) 3 pack UNSCH PRN TOPICAL 01/18/18 23:45 01/23/18 23:43 (Zofran Inj) 4 mg Q6HR PRN IV PUSH 01/19/18 01:15 01/20/18 08:44 (Macrobid) 100 mg BIDPC PO 01/19/18 10:00 01/23/18 19:30 (Synthroid) 100 mcg DAILY@0600 PO 01/20/18 06:00 01/23/18 05:03 (Deltasone) 40 mg DAILY PO 01/20/18 09:00 01/23/18 10:32 Dextrose/Sodium Chloride 1,000 ml @ 125 mls/hr Q8H IV 01/20/18 09:00 01/23/18 20:40 (Oramorph Sr) 30 mg Q8H PO 01/21/18 18:00 01/23/18 19:29 Assessment and Plan Problem List: (1) HTN (hypertension) ICD Codes: I10 - Essential (primary) hypertension Plan: SBP 99 (2) Syncope ICD Codes: R55 - Syncope and collapse Status: Acute Plan: No new episode since hospitalization No bradycardia doing well On no positive chronotropic medication can be DH in AM if stable Follow up on a PRN basis Problem Qualifiers (1) Syncope: Qualified Codes: R55 - Syncope and collapse Tamara Cervantes MD Jan 23, 2018 23:33
[2018-01-24] VITALS (7 sets, daily range): BP systolic 94–120; BP diastolic 53–63; PULSE 67–80; RESP 12–16; TEMP 98.3–98.6; O2SAT 96–98
[2018-01-24] MEDS: MORPHINE SULFATE 30 MG CONTROLLED RELEASE TAB PO SCH ×2 (03:06→09:39)
[2018-01-24] MEDS: DIAZEPAM 10 MG TAB PO PRN ×2 (03:06→09:38)
[2018-01-24] MEDS: LEVOTHYROXINE SODIUM 100 MCG TAB PO SCH (04:59)
[2018-01-24] MEDS: DEXT 5%-NACL 0.9% 1000 ML INJ 1,000 ML IV SCH (04:59)
[2018-01-24] MEDS: HEPARIN SODIUM - SQ 10,000 UNITS/ML VIAL SQ SCH (05:00)
--- NOTE | 2018-01-24 08:29 | PD.CARD.PN ---
Subjective Subjective Remarks Anxious this morning over some drainage from chest incision site. No complaint of pain, weakness, syncope or arrhythmia. Objective Medications Current Medications Medications (Trade) Dose Ordered Sig/Osito Route Start Time Stop Time Status Last Admin (NS Flush) 2 ml UNSCH PRN IV FLUSH 01/18/18 01:00 01/20/18 11:32 (NS Flush) 2 ml BID IV FLUSH 01/18/18 09:00 01/23/18 20:39 (Narcan Inj) 0.4 mg UNSCH PRN IV PUSH 01/18/18 01:00 (Valium) 10 mg TID PRN PO 01/18/18 01:45 Future hold 01/24/18 03:06 (Ferrous Sulfate) 325 mg BIDPC PO 01/18/18 09:00 01/23/18 19:28 (Mag-Ox) 400 mg DAILY PO 01/18/18 09:00 01/23/18 10:30 (Protonix) 40 mg HS PO 01/18/18 21:00 01/23/18 19:29 (KCl) 40 meq TID PO 01/18/18 09:00 01/23/18 19:29 (K-Phos) 500 mg PCHS PO 01/18/18 09:30 01/23/18 20:39 (Aldactone) 25 mg DAILY PO 01/18/18 09:00 01/23/18 10:31 (Heparin Inj) 5,000 units Q8HR SQ 01/18/18 06:00 01/24/18 05:00 (Mag-Al Plus Susp Liq) 30 ml Q6H PRN PO 01/18/18 13:15 (Brethine Inj) 1 mg UNSCH PRN SQ 01/18/18 20:45 01/21/18 14:06 Dopamine HCl/ Dextrose 500 ml @ 7.144 mls/ hr TITRATE PRN IV 01/18/18 23:00 01/20/18 15:43 Miscellaneous Information Patient in critical care unit? Ass... Q361D .XX 01/18/18 23:45 01/18/18 23:45 (Zofran Inj) 4 mg Q6HR PRN IV PUSH 01/19/18 01:15 01/20/18 08:44 (Macrobid) 100 mg BIDPC PO 01/19/18 10:00 01/23/18 19:30 (Synthroid) 100 mcg DAILY@0600 PO 01/20/18 06:00 01/24/18 04:59 (Deltasone) 40 mg DAILY PO 01/20/18 09:00 01/23/18 10:32 Dextrose/Sodium Chloride 1,000 ml @ 125 mls/hr Q8H IV 01/20/18 09:00 01/24/18 04:59 (Oramorph Sr) 30 mg Q8H PO 01/21/18 18:00 01/24/18 03:06 Vital Signs / I&O Vital Signs Date Time Temp Pulse Resp B/P (MAP) Pulse Ox O2 Delivery O2 Flow Rate FiO2 01/24/18 06:00 72 01/24/18 04:00 98.6 74 12 108/53 (71) 97 01/24/18 04:00 74 01/24/18 02:00 71 01/24/18 00:00 98.4 67 15 116/63 (80) 96 01/24/18 00:00 67 01/23/18 22:00 75 01/23/18 20:00 77 01/23/18 20:00 98.5 77 18 98/55 (69) 98 01/23/18 18:00 64 14 99/52 (68) 97 01/23/18 18:00 64 01/23/18 17:00 66 12 97/53 (68) 97 01/23/18 17:00 66 01/23/18 16:00 65 01/23/18 16:00 97.7 65 14 87/50 (62) 96 01/23/18 15:00 71 01/23/18 15:00 71 17 102/56 (71) 97 01/23/18 14:00 64 13 98/56 (70) 96 01/23/18 14:00 64 01/23/18 13:00 73 21 92/54 (67) 97 01/23/18 13:00 73 01/23/18 12:00 74 23 91/55 (67) 98 01/23/18 12:00 74 01/23/18 11:00 69 16 95/54 (68) 97 01/23/18 11:00 69 01/23/18 10:00 72 14 98/51 (67) 96 01/23/18 10:00 72 01/23/18 09:00 64 12 106/57 (73) 98 01/23/18 09:00 64 I/O 01/23/18 01/23/18 01/23/18 01/24/18 01/24/18 01/24/18 07:00 15:00 23:00 07:00 15:00 23:00 Intake Total 1500 ml 2700 ml 1240 ml Balance 1500 ml 2700 ml 1240 ml Intake Oral 400 ml 700 ml 240 ml IV Total 1100 ml 2000 ml 1000 ml # Voids 7 4 5 # Bowel Movements 1 0 0 Physical Exam GENERAL: Well-nourished, well-developed patient. SKIN: Warm and dry. HEAD: Normocephalic. EYES: No scleral icterus. No injection or drainage. NECK: Supple, trachea midline. No JVD or lymphadenopathy. CARDIOVASCULAR: Regular rate and rhythm without murmurs, gallops, or rubs. RESPIRATORY: Breath sounds equal bilaterally. No accessory muscle use. GASTROINTESTINAL: Abdomen soft, non-tender, nondistended. EXTREMITIES: No cyanosis, or edema. NEUROLOGICAL: Awake, alert, and oriented x 3. Non-focal. Laboratory Date/Time Source Procedure Growth Status 01/17/18 23:55 Urine Random Urine Urine Culture - Final Escherichia Coli Complete Imaging Last Impressions Carotid Artery Ultrasound 01/18/18 0000 Signed Impressions: Service Date/Time: January 09:31 - CONCLUSION: 1. Minimal carotid plaque without flow limiting stenosis. 2. Antegrade vertebral artery flow bilaterally. Gil Valente MD Head CT 01/17/182230 Signed Impressions: Service Date/Time: Wednesday, January 17, 2018 23:27 - CONCLUSION: Normal examination. Vic Williamson Jr., MD Chest X-Ray 01/17/182230 Signed Impressions: Service Date/Time: Wednesday, January 17, 2018 22:37 - CONCLUSION: No evidence of acute cardiopulmonary disease. Brian Arrieta MD Assessment and Plan Problem List: (1) Bradycardia ICD Codes: R00.1 - Bradycardia, unspecified Plan: Telemetry history reviewed, no episodes of bradycardia or pauses seen. (2) S/P ICD (internal cardiac defibrillator) procedure ICD Codes: Z95.810 - Presence of automatic (implantable) cardiac defibrillator Plan: ICD implanted October 03, 2017, [employer] single-chamber secondary to Brugada syndrome. Settings are VVI 40. (3) Syncope ICD Codes: R55 - Syncope and collapse Status: Acute Plan: No recurrence since hospitalization. Stable for discharge per my discussion with Dr. Cervantes. Problem Qualifiers (1) Syncope: Qualified Codes: R55 - Syncope and collapse Darya Tillman Jan 24, 2018 08:29
--- NOTE | 2018-01-24 09:28 | HHI.DCPOC ---
Discharge Care Plan Diagnosis: (1) Syncope (2) Rhabdomyolysis (3) SHABANA (acute kidney injury) (4) HTN (hypertension) Goals to Promote Your Health * To prevent worsening of your condition and complications * To maintain your health at the optimal level Directions to Meet Your Goals Take your medications as prescribed Follow your dietary instruction Follow activity as directed Keep your appointments as scheduled Take your immunizations and boosters as scheduled If your symptoms worsen call your PCP, if no PCP go to Urgent Care Center or Emergency Room Smoking is Dangerous to Your Health. Avoid second hand smoke Call the 24-hour hour crisis hotline for domestic abuse at Rocky Painting MD Jan 24, 2018 09:28
[2018-01-24] MEDS ORDERED: MS C15TA7 PO (09:40)
[2018-01-24] MEDS: predniSONE 20 MG TAB PO SCH (09:40)
[2018-01-24] MEDS ORDERED: LEVO125T4 PO (09:40)
[2018-01-24] MEDS ORDERED: DIAZ10 PO (09:40)
[2018-01-24] MEDS: SPIRONOLACTONE 25 MG TAB PO SCH (09:40)
[2018-01-24] MEDS: FERROUS SULFATE 325 MG (65 MG ELEMENTAL IRON) TAB PO SCH (09:40)
[2018-01-24] MEDS: MAGNESIUM OXIDE 400 MG TAB PO SCH (09:40)
[2018-01-24] MEDS ORDERED: PRED20 PO (09:40)
[2018-01-24] MEDS: POTASSIUM CHLORIDE 20 MEQ CONTROLLED RELEASE TAB PO SCH ×2 (09:40→13:19)
[2018-01-24] MEDS: NITROFURANTOIN MONOHYD MACROCR 100 MG CAP PO SCH (09:40)
[2018-01-24] MEDS: SODIUM CHLORIDE 0.9% FLUSH 10 ML FLUSH IV FLUSH SCH (09:41)
--- NOTE | 2018-01-24 10:05 | HHI.PR ---
Subjective Remarks Follow up syncope, bradycardia. Patient denies lightheadedness, chest pain, dyspnea. Reports a small amount of pustular drainage from wound on chest. Objective Vitals Vital Signs Date Time Temp Pulse Resp B/P (MAP) Pulse Ox O2 Delivery O2 Flow Rate FiO2 01/24/18 06:00 72 01/24/18 04:00 98.6 74 12 108/53 (71) 97 01/24/18 04:00 74 01/24/18 02:00 71 01/24/18 00:00 98.4 67 15 116/63 (80) 96 01/24/18 00:00 67 01/23/18 22:00 75 01/23/18 20:00 77 01/23/18 20:00 98.5 77 18 98/55 (69) 98 01/23/18 18:00 64 14 99/52 (68) 97 01/23/18 18:00 64 01/23/18 17:00 66 12 97/53 (68) 97 01/23/18 17:00 66 01/23/18 16:00 65 01/23/18 16:00 97.7 65 14 87/50 (62) 96 01/23/18 15:00 71 01/23/18 15:00 71 17 102/56 (71) 97 01/23/18 14:00 64 13 98/56 (70) 96 01/23/18 14:00 64 01/23/18 13:00 73 21 92/54 (67) 97 01/23/18 13:00 73 01/23/18 12:00 74 23 91/55 (67) 98 01/23/18 12:00 74 01/23/18 11:00 69 16 95/54 (68) 97 01/23/18 11:00 69 I/O 01/23/18 01/23/18 01/23/18 01/24/18 01/24/18 01/24/18 07:00 15:00 23:00 07:00 15:00 23:00 Intake Total 1500 ml 2700 ml 1240 ml Balance 1500 ml 2700 ml 1240 ml Intake Oral 400 ml 700 ml 240 ml IV Total 1100 ml 2000 ml 1000 ml # Voids 7 4 5 # Bowel Movements 1 0 0 Result Diagram: 01/20/18 0624 01/23/18 0430 Imaging Last Impressions Carotid Artery Ultrasound 01/18/18 0000 Signed Impressions: Service Date/Time: January 09:31 - CONCLUSION: 1. Minimal carotid plaque without flow limiting stenosis. 2. Antegrade vertebral artery flow bilaterally. Gil Valente MD Head CT 01/17/182230 Signed Impressions: Service Date/Time: Wednesday, January 17, 2018 23:27 - CONCLUSION: Normal examination. Vic Williamson Jr., MD Chest X-Ray 01/17/182230 Signed Impressions: Service Date/Time: Wednesday, January 17, 2018 22:37 - CONCLUSION: No evidence of acute cardiopulmonary disease. Brian Arrieta MD Objective Remarks General: No acute distress. Heart: Regular rate and rhythm. No murmur. Lungs: Clear to auscultation bilaterally. No wheezes, rales, or rhonchi. Breathing is nonlabored. Abdomen: Soft, nontender, nondistended. Extremities: No lower extremity edema. Psych: Alert and oriented. Skin: Small wound overlying the sternum. Small amount of pustular drainage on dressing. No further pus expressed. Procedures None Urinary Catheter: No Vascular Central Line Catheter: No A/P Problem List: (1) Brugada syndrome ICD Code: I49.8 - Other specified cardiac arrhythmias (2) Syncope ICD Code: R55 - Syncope and collapse Status: Acute (3) Rhabdomyolysis ICD Code: M62.82 - Rhabdomyolysis Status: Acute (4) S/P ICD (internal cardiac defibrillator) procedure ICD Code: Z95.810 - Presence of automatic (implantable) cardiac defibrillator Assessment and Plan 1. Syncope, bradycardia, Brugada syndrome: Cleared for discharge by cardiology. Electrophysiology considering replacement of AICD. Off dopamine drip. Continue telemetry monitoring. 2. Rhabdomyolysis: Resolved. 3. Acute kidney injury: Creatinine has improved overall during the hospitalization. Labs are pending today. Continue IV fluids. Avoid nephrotoxins. 4. Hypothyroidism: Continue levothyroxine. Follow-up labs as outpatient in about 4 weeks. 5. SLE, Crohn's disease, chronic pain syndrome: Continue prednisone, home pain medication regimen. Follow-up with pain management as outpatient. 6. DVT prophylaxis: Heparin. Discharge Planning Discharge to SNF when arrangements can be made. Problem Qualifiers (1) Syncope: Qualified Codes: R55 - Syncope and collapse (2) Rhabdomyolysis: Qualified Codes: M62.82 - Rhabdomyolysis Rocky Painting MD Jan 24, 2018 10:05
[2018-01-24] MEDS ORDERED: MUPI2%T TOPICAL (10:06)
[2018-01-24] MEDS ORDERED: MUPIROCIN 2% OINT 22 GM TUBE TOPICAL SCH (10:30)
[2018-01-24 11:19] LABS: BICARBONATE 25.3 MEQ/L (21.0-32.0); CALCIUM 8.5 MG/DL (8.5-10.1); CREATININE 1.24 MG/DL (0.50-1.00)
[2018-01-24] MEDS: POTASSIUM PHOSPHATE MONOBASIC 500 MG TAB PO SCH ×2 (11:23→13:20)
--- NOTE | 2018-01-24 11:36 | HHI.DS ---
Discharge Summary Admission Date Jan 18, 2018 at 01:22 Discharge Date: Jan 24, 2018 Admitting Diagnosis Syncope; SHABANA; Rhabdo; Bruggada Syndrome (1) Brugada syndrome ICD Code: I49.8 - Other specified cardiac arrhythmias (2) Syncope ICD Code: R55 - Syncope and collapse Status: Acute (3) Rhabdomyolysis ICD Code: M62.82 - Rhabdomyolysis Status: Acute (4) S/P ICD (internal cardiac defibrillator) procedure ICD Code: Z95.810 - Presence of automatic (implantable) cardiac defibrillator Procedures None Brief History - From Admission History from patient, ER physician communication, interview of medical records. Patient reported that she has been having muscle spasms since beginning of this month. She reports of painful cramps everywhere in her body. At some times, her hands would lockup. She states that she was not able to get Valium as an outpatient which she usually takes for muscle spasms and she was attributing to her symptoms because of this. She came to the emergency room and was given Valium here. She then continued to have these symptoms for the next 2 days or so. She reports dizziness. Today, patient returned back to ER because she stated that she has been passing out. At least twice today. She also reports of falling down episodes. 6 today. She states she does feel dizzy as he sees objects moving around when she feels dizzy. She states the dizziness comes on particularly when she starts moving around. Denies she did have some chest tightness and pressure before and after the episode of syncope. Reports she sees flash of light just before passing out as well. today returned because she was passing out - at least 2 x today but fell down 5-6x felt dizziness whenever i get up to start moving and doing things had chest pain before and after the syncope felt more of pressure dizziness is more of room spinning sees flash lights before syncope chest pain worse when pressing on it but also when taking a deep breath pain felt like it spiral down the chest On review of system, patient also reports that she was at [facility] about 3-1/2 weeks ago. She was discharged from December 22, 2017. She states at that time, her AICD had to be removed. Reports that at that time, she did have bacteremia. She took antibiotics for 2 weeks in the hospital and was discharged on oral levofloxacin for the next 10 days. was in hospital for 2 weeks on iv antibiotics- was discharged on levofloxacin 7 days course - finished by 12/29 or so had nose bleed in her 2 last er visit this month had fever 104 at home has been taking ibuprofen and tylenol no cough no diarrhea no urinary symptoms- but states always have frequency had blood in stool , red color, just this week- but only when she wipes CBC/BMP: 01/20/18 0624 01/24/18 1049 Significant Findings Laboratory Tests Test 01/22/18 06:26 01/23/18 04:30 01/24/18 10:49 Creatinine 1.14 MG/DL (0.50-1.00) 1.32 MG/DL (0.50-1.00) 1.24 MG/DL (0.50-1.00) Magnesium Level 1.4 MG/DL (1.5-2.5) Estimat Glomerular Filtration Rate 53 ML/MIN (>89) 44 ML/MIN (>89) 48 ML/MIN (>89) Blood Urea Nitrogen 19 MG/DL (7-18) PE at Discharge General: No acute distress. Heart: Regular rate and rhythm. No murmur. Lungs: Clear to auscultation bilaterally. No wheezes, rales, or rhonchi. Breathing is nonlabored. Abdomen: Soft, nontender, nondistended. Extremities: No lower extremity edema. Psych: Alert and oriented. Skin: Small wound overlying the sternum. Small amount of pustular drainage on dressing. No further pus expressed. Hospital Course The patient was admitted for evaluation of syncope, bradycardia. Cardiology was consulted. AICD was interrogated. Patient remained bradycardic on telemetry. She was placed on dopamine, with improvement of her heart rate. She was weaned off the dopamine. Electrophysiology specialist was consulted. She remained stable with a regular heart rate and was cleared for discharge by cardiology. She developed acute kidney injury, which improved. She was felt to be stable for discharge home with home health care. Pt Condition on Discharge: Stable Discharge Disposition: Disch w/ Home Health Serv Discharge Time: > 30 minutes Discharge Instructions DIET: Follow Instructions for: Heart Healthy Diet Activities you can perform: Regular-No Restrictions Follow up Referrals: Cardiology - 1 Week with Tamara Cervantes MD PCP Follow-up - 1 Week New Medications: Mupirocin Topical (Bactroban Topical) 22 Gm Cream 1 APPLIC TOPICAL BID for Mgmt Bacterial Infection, #1 TUBE 0 Refills Continued Medications: Cholecalciferol (Vitamin D3) 10,000 Unit Cap 87538 UNITS PO Q3D @ HS for Nutritional Supplement, #1 BOTTLE 0 Refills Diazepam (Valium) 10 Mg Tab 10 MG PO TID PRN for muscle spasm, #6 TAB 0 Refills (This prescription has been renewed) Ferrous Sulfate (Ferrous Sulfate) 325 Mg (65 Mg Iron) Tablet 325 MG PO BIDPC for Nutritional Supplement, #60 TAB 0 Refills Levothyroxine (Levothyroxine) 125 Mcg Tab 125 MCG PO DAILY for Thyroid, #30 TAB 0 Refills (This prescription has been renewed) Magnesium Oxide (Magnesium Oxide) 400 Mg Tab 400 MG PO DAILY for Nutritional Supplement, #30 TAB 0 Refills Pantoprazole (Pantoprazole) 40 Mg Tab 40 MG PO HS for Reflux, #30 TAB 0 Refills Potassium Chloride ER (Potassium Chloride ER) 20 Meq Tab 40 MEQ PO TID for Electrolyte Replacement, #90 TAB 0 Refills Potassium Phosphate Monobasic (K-Phos) 500 Mg Tab 500 MG PO PCHS for Electrolyte Replacement, #120 TAB 0 Refills Prednisone (Prednisone) 20 Mg Tab 40 MG PO DAILY for Control Inflammation, #25 TAB 0 Refills (This prescription has been renewed) Take 40mg (2 tabs) daily x7 days, then 20mg (1 tab) daily x7 days, then 10mg (1/2 tab) daily x7days, then stop. Spironolactone (Spironolactone) 25 Mg Tab 25 MG PO DAILY, #30 TAB 0 Refills Discontinued Medications: Methocarbamol (Methocarbamol) 500 Mg Tab 500 MG PO Q8H for muscle spasm, #30 TAB 0 Refills Rocky Painting MD Jan 24, 2018 11:35
--- NOTE | 2018-01-24 16:22 | HHI.FF ---
Face to Face Verification Diagnosis: (1) Rhabdomyolysis (2) Brugada syndrome (3) Atrial fibrillation (4) Bradycardia (5) SHABANA (acute kidney injury) Physical Therapy Order: Evaluate and Treat Home Health Nursing Order: Nursing assessment with vital signs I have seen patient Brisa Hernandez on 01/24/18. My clinical findings support the need for the requested home health care services because: High risk of falls I certify that my clinical findings support that this patient is homebound because: Unsteady gait/balance Rocky Painting MD Jan 24, 2018 16:22
== END 2018-01-24 13:50 | disposition home health service (06) | DRG 309 ==
LOC: NEPE 22:14 → NEDA 01-18 00:51 → NEPGCP 01-18 01:13 → OBSVTOIN 01-18 01:22 → HCIS 01-18 19:17 → HIME 01-18 23:30
PROVIDERS: ADMIT Family Medicine; ATTEND Family Medicine
DX: I49.8 Other specified cardiac arrhythmias (principal); N17.9 Acute kidney failure, unspecified; M32.9 Systemic lupus erythematosus, unspecified; K50.90 Crohn's disease, unspecified, without complications; K31.84 Gastroparesis; I48.91 Unspecified atrial fibrillation; I12.9 Hypertensive chronic kidney disease with stage 1 through stage 4 chronic kidney disease, or unspecified chronic kidney disease; R55 Syncope and collapse; N18.9 Chronic kidney disease, unspecified; E03.9 Hypothyroidism, unspecified; R29.6 Repeated falls; G89.4 Chronic pain syndrome; K59.00 Constipation, unspecified; F17.200 Nicotine dependence, unspecified, uncomplicated; Z85.038 Personal history of other malignant neoplasm of large intestine; Z86.14 Personal history of Methicillin resistant Staphylococcus aureus infection; Z88.0 Allergy status to penicillin; Z88.1 Allergy status to other antibiotic agents; Z91.013 Allergy to seafood; Z95.810 Presence of automatic (implantable) cardiac defibrillator
CPT/HCPCS: 70450; 71045; 76937; 80048; 80307; 81001; 82550; 82552; 83735; 84100; 84443; 84484; 85025; 85027; 85610; 85730; 87077; 87086; 87186; 87641; 93005; 93880; 99291; J0461; J0610; J1265; J1644; J2060; J2405; J3105; J3475; J7030; J7042; J7512

== ENCOUNTER 2018-02-05 19:35 | Inpatient (IN) | payer OTHER ==
[~2018-02-05] VITALS: Ht 175.3 cm; Wt 66.8 kg
[~2018-02-05 19:35] MED LIST changes: -CYCL5TAB PO; +K-PHTAB PO; -METH500T3 PO; -MS C15TA7 PO; +MUPI2%T TOPICAL
[2018-02-05 19:42] VITALS: BP 162/95; PULSE 106; RESP 20; TEMP 99; O2SAT 100
--- NOTE | 2018-02-05 20:17 | RADRPT ---
EXAM DATE/TIME: 02/05/2018 19:55 [facility] COMPARISON: CHEST PA & LAT, January 06, 2018, 2:27. INDICATIONS : Chest pain MEDICAL HISTORY : Hypothyroidism. Ulcers. Gastroesophageal reflux diseOvarian cysts. Bipolar disorder. UTI. Renal failu re. Kidney stones. MRSA. C-diff. Crohns. Lupus.ase. Seizures. Pneumonia, SURGICAL HISTORY : Hysterectomy. AICD. ENCOUNTER: [facility] ACUITY: 3 weeks PAIN SCORE: 4/10 LOCATION: chest FINDINGS: PA and lateral views of the chest demonstrate the lungs to be symmetrically aerated without evidence of mass, infiltrate or effusion. The cardiomediastinal contours are unremarkable. Osseous structure s are intact. CONCLUSION: 1. No active disease. Defibrillator wire overlies the left hemithorax anteriorly. Hay Day MD on February 05, 2018 at 20:13 Board Certified Radiologist. This report was verified electronically.
[2018-02-05 22:23] LABS: AUTOMATED NEUTROPHIL # 5.1 TH/MM3 (1.8-7.7); BASOPHIL # 0.1 TH/MM3 (0-0.2); BASOPHIL % 0.8 % (0.0-2.0); EOSINOPHIL # 0.1 TH/MM3 (0-0.4); EOSINOPHIL % 1.7 % (0.0-4.0); HEMOGLOBIN 11.4 GM/DL (11.6-15.3); LYMPHOCYTE # 1.1 TH/MM3 (1.0-4.8); MEAN CORPUSCULAR HEMOGLOBIN 27.4 PG (27.0-34.0); MEAN CORPUSCULAR HGB CONC 33.4 % (32.0-36.0); MEAN PLATELET VOLUME 6.8 FL (7.0-11.0); MONO % 7.9 % (0.0-8.0); MONOCYTE # 0.5 TH/MM3 (0-0.9); NEUT % 73.6 % (16.0-70.0); PLATELET COUNT 184 TH/MM3 (150-450); RED BLOOD COUNT 4.15 MIL/MM3 (4.00-5.30); RED CELL DISTRIBUTION WIDTH 19.1 % (11.6-17.2); WHITE BLOOD COUNT 6.9 TH/MM3 (4.0-11.0)
[2018-02-05 22:38] LABS: PROTHROMBIN TIME - PATIENT 10.1 SEC (9.8-11.6)
[2018-02-05 22:40] LABS: ALBUMIN 3.6 GM/DL (3.4-5.0); ALT (GPT) 49 U/L (10-53); AST (GOT) 21 U/L (15-37); BICARBONATE 27.8 MEQ/L (21.0-32.0); BLOOD UREA NITROGEN 32 MG/DL (7-18); CALCIUM 9.3 MG/DL (8.5-10.1); CHLORIDE 104 MEQ/L (98-107); CREATININE 1.99 MG/DL (0.50-1.00); GLOMERULAR FILTRATION RATE 28 ML/MIN (>89); GLUCOSE,RANDOM 101 MG/DL (74-106); SODIUM (NA) 142 MEQ/L (136-145)
[2018-02-05 22:42] LABS: ALKALINE PHOSPHATASE 88 U/L (45-117); TOTAL BILIRUBIN ADULT 0.3 MG/DL (0.2-1.0); TOTAL PROTEIN 7.7 GM/DL (6.4-8.2)
[2018-02-05 23:10] VITALS: BP 138/77; PULSE 80; RESP 18; O2SAT 100
[2018-02-05] MEDS ORDERED: VANCOMYCIN INJ 1,000 MG in SODIUM CHLOR 0.9% 250 ML INJ 250 ML IV ONE (23:15)
[2018-02-05] MEDS ORDERED: POTASSIUM CHLORIDE 20 MEQ CONTROLLED RELEASE TAB PO ONE (23:15)
--- NOTE | 2018-02-05 23:41 | PD ---
HPI Chief Complaint: Skin Problem Time Seen by Provider: 22:57 Travel History International Travel<30 days: No Contact w/Intl Traveler<30days: No Traveled to known affect area: No History of Present Illness HPI 42-year-old female with extensive past medical history including lupus, colitis , Brugada syndrome, pacemaker defibrillator, hypokalemia, recently hospitalized for syncope acute kidney injury 18 at [facility]. Patient at time of discharge after recent hospitalization here at [place] was given prescription for Bactroban to apply to substernal wound infection. Patient reports that today she noticed increased swelling at the wound site and then a copious amount of purulent drainage was noted and she was able to express most of the drainage prior to arrival to the emergency department. Patient is also noted swelling at the left lateral chest wall at the site of her pacemaker defibrillator insertion site that has increased significantly over the past several days. Patient's had subjective fever and chills. Patient was instructed by her dot etcher apprentice EP study physician to come to the emergency department for IV antibiotics and possible admission. Patient also is concerned about recurrent low potassium as she has chronic low potassium. Patient denies other concerns or complaints. The patient rates her discomfort 8 /10 intensity. PFSH Past Medical History Narrative Medical Brugada syndrome rhabdomyolysis syncope AICD pacemaker pacemaker replacement anemia hypothyroidism lupus juvenile epilepsy renal insufficiency; no tobacco use; nursing notes reviewed Arthritis: No Asthma: No Atrial Fibrillation: No Autoimmune Disease: Yes (LUPUS ) Blood Disorders: No Bipolar Disorder: Yes Anxiety: Yes Depression: No Heart Rhythm Problems: No Cancer: Yes Cardiac Catheterization: No Cardiovascular Problems: Yes (pacemaker, brugada syndrome, HTN) High Cholesterol: No Chemotherapy: No Chest Pain: No Congestive Heart Failure: No COPD: No Cerebrovascular Accident: No Diabetes: No Diminished Hearing: No Endocrine: No Gastrointestinal Disorders: Yes (GASTROPARESIS, esophagitis) GERD: Yes Genitourinary: Yes (RECURRENT UTI'S, NEPHRITIS, kidney disease) Headaches: Yes Hiatal Hernia: No Heparin Induced Thrombocytopen: No Hypertension: No Immune Disorder: Yes (CROHN'S, SLE) Implanted Vascular Access Dvce: Yes (RIGHT SUBCLAVIAN PORT VAD) Kidney Stones: Yes Musculoskeletal: No Neurologic: Yes (EPILEPSY) Psychiatric: No Reproductive: No Respiratory: No Immunizations Current: Yes Migraines: Yes Myocardial Infarction: No Pneumonia: Yes Radiation Therapy: No Renal Failure: Yes Seizures: Yes (juvenile epilepsy) Sickle Cell Disease: No Sleep Apnea: No Thyroid Disease: Yes (HYPOTHYROIDISM) Ulcer: Yes PNEUMOCCOCAL Vaccine (Year): 3 ?: Not : 2 Para: 1 Miscarriage: 1 : 0 Ectopic : Yes (AT 17 YEARS OF AGE) Ovarian Cysts: Yes Past Surgical History Abdominal Surgery: Yes (multiple Laps) AICD: Yes ([employer]) Appendectomy: Yes Arteriovenous Shunt: No Body Medical Devices: RIGHT SUBCLAVIAN PORT VAD, DEFIB/PACER PLACED X 3 WEEKS AGO Cardiac Surgery: Yes (AICD ) Coronary Artery Bypass Graft: No Ear Surgery: No Endocrine Surgery: Yes Eye Surgery: No Genitourinary Surgery: Yes (Interstitial cystitis) Gynecologic Surgery: Yes Hysterectomy: Yes Insulin Pump: No Joint Replacement: No Neurologic Surgery: No Oral Surgery: Yes (Removal of abscess) Pacemaker: No Thoracic Surgery: No Other Surgery: Yes (OVARIAN CYST/TUMOR REMOVED) Social History Alcohol Use: No Tobacco Use: No Substance Use: No Allergies-Medications (Allergen,Severity, Reaction): Coded Allergies: Fish Containing Products (Unverified Allergy, Severe, SWELLING IN THROAT, SOB, 02/06/18) cephalexin (Unverified Allergy, Severe, RASH,SWELLING, 02/06/18) ketorolac (Unverified Allergy, Severe, RASH, 02/06/18) penicillin G (Unverified Allergy, Severe, RASH,SWELLING, 02/06/18) prochlorperazine (Unverified Allergy, Mild, DYSTONIC REACTION, 02/06/18) promethazine (Unverified Allergy, Mild, DYSTONIC REACTION, 02/06/18) gabapentin (Unverified Adverse Reaction, Severe, SEIZURES, 02/06/18) Reported Meds & Prescriptions Reported Meds & Active Scripts Active Valium (Diazepam) 10 Mg Tab 10 Mg PO TID PRN Levothyroxine (Levothyroxine Sodium) 125 Mcg Tab 125 Mcg PO DAILY Prednisone 20 Mg Tab 40 Mg PO DAILY Take 40mg (2 tabs) daily x7 days, then 20mg (1 tab) daily x7 days, then 10mg (1/2 tab) daily x7days, then stop. Magnesium Oxide 400 Mg Tab 400 Mg PO DAILY Pantoprazole (Pantoprazole Sodium) 40 Mg Tab 40 Mg PO HS Potassium Chloride ER (Potassium Chloride) 20 Meq Tab 40 Meq PO TID Ferrous Sulfate 325 Mg (65 Mg Iron) Tablet 325 Mg PO BIDPC Vitamin D3 (Cholecalciferol) 10,000 Unit Cap 20,000 Units PO Q3D @ HS Reported K-Phos (Potassium Phosphate Monobasic) 500 Mg Tab 500 Mg PO PCHS Spironolactone 25 Mg Tab 25 Mg PO DAILY Review of Systems Except as stated in HPI: all other systems reviewed are Neg General / Constitutional: Positive: Fever, Chills (Subjective) HENT: No: Congestion Cardiovascular: No: Chest Pain or Discomfort Respiratory: No: Shortness of Breath Gastrointestinal: No: Nausea, Vomiting, Abdominal Pain Genitourinary: No: Dysuria Skin: Positive Lumps Neurologic: No: Weakness Psychiatric: Positive: Anxiety Hematologic/Lymphatic: No: Lymph Node Enlargement Physical Exam Narrative GENERAL: Well-developed well-nourished female in no acute distress or respiratory distress SKIN: Warm and dry. HEAD: Normocephalic. EYES: No scleral icterus. No injection or drainage. NECK: Supple, trachea midline. No JVD or lymphadenopathy. CARDIOVASCULAR: Regular rate and rhythm without murmurs, gallops, or rubs. Chest wall soft tissue swelling noted at left lateral chest wall with palpable subcutaneous AICD pacemaker device and midline lower sternum xiphoid area 1 cm area of granulation tissue without active purulent drainage at this time and mild neighboring soft tissue swelling without fluctuance erythema or increased warmth. RESPIRATORY: Breath sounds equal bilaterally. No accessory muscle use. GASTROINTESTINAL: Abdomen soft, non-tender, nondistended. MUSCULOSKELETAL: No cyanosis, or edema. BACK: Nontender without obvious deformity. No CVA tenderness. Data Data Last Documented VS Vital Signs Date Time Temp Pulse Resp B/P (MAP) Pulse Ox O2 Delivery O2 Flow Rate FiO2 02/06/18 01:33 92 18 133/77 (95) 100 Room Air 02/05/18 19:42 99.0 Orders Orders Complete Blood Count With Diff (02/05/18 19:45) Comprehensive Metabolic Panel (02/05/18 19:45) Prothrombin Time / Inr (Pt) (02/05/18 19:45) Act Partial Throm Time (Ptt) (02/05/18 19:45) Lactic Acid Sepsis Protocol (02/05/18 19:45) Electrocardiogram (02/05/18 ) Chest, Pa & Lat (02/05/18 ) Blood Culture (02/05/18 23:14) Wound Culture And Gram Stain (02/05/18 23:14) Vancomycin Inj (Vancomycin Inj) (02/05/18 23:15) Potassium Chloride (Kcl) (02/05/18 23:15) Morphine Inj (Morphine Inj) (02/06/18 01:30) Ondansetron Inj (Zofran Inj) (02/06/18 01:30) Admit Order (Ed Use Only) (02/06/18 ) Vital Signs (Adult) Q4H (02/06/18 02:37) Diet Heart Healthy (02/06/18 Breakfast) Activity Oob With Assistance (02/06/18 02:37) Notify Dr: Other (02/06/18 02:37) Labs Laboratory Tests Test 02/05/18 21:42 White Blood Count 6.9 TH/MM3 Red Blood Count 4.15 MIL/MM3 Hemoglobin 11.4 GM/DL Hematocrit 34.0 % Mean Corpuscular Volume 82.0 FL Mean Corpuscular Hemoglobin 27.4 PG Mean Corpuscular Hemoglobin Concent 33.4 % Red Cell Distribution Width 19.1 % Platelet Count 184 TH/MM3 Mean Platelet Volume 6.8 FL Neutrophils (%) (Auto) 73.6 % Lymphocytes (%) (Auto) 16.0 % Monocytes (%) (Auto) 7.9 % Eosinophils (%) (Auto) 1.7 % Basophils (%) (Auto) 0.8 % Neutrophils # (Auto) 5.1 TH/MM3 Lymphocytes # (Auto) 1.1 TH/MM3 Monocytes # (Auto) 0.5 TH/MM3 Eosinophils # (Auto) 0.1 TH/MM3 Basophils # (Auto) 0.1 TH/MM3 CBC Comment DIFF FINAL Differential Comment Prothrombin Time 10.1 SEC Prothromb Time International Ratio 1.0 RATIO Activated Partial Thromboplast Time 27.3 SEC Blood Urea Nitrogen 32 MG/DL Creatinine 1.99 MG/DL Random Glucose 101 MG/DL Total Protein 7.7 GM/DL Albumin 3.6 GM/DL Calcium Level 9.3 MG/DL Alkaline Phosphatase 88 U/L Aspartate Amino Transf (AST/SGOT) 21 U/L Alanine Aminotransferase (ALT/SGPT) 49 U/L Total Bilirubin 0.3 MG/DL Sodium Level 142 MEQ/L Potassium Level 3.1 MEQ/L Chloride Level 104 MEQ/L Carbon Dioxide Level 27.8 MEQ/L Anion Gap 10 MEQ/L Estimat Glomerular Filtration Rate 28 ML/MIN Lactic Acid Level 0.5 mmol/L MDM Medical Decision Making Medical Screen Exam Complete: Yes Emergency Medical Condition: Yes Medical Record Reviewed: Yes Interpretation(s) EKG: normal sinus rhythm rate 85 intraventricular conduction delay nonspecific T -wave changes QT 439 with QTC of [address] elevation Differential Diagnosis Wound infection, device related infection, abscess, electrolyte disturbance, sepsis Narrative Course CBC with automated differential total white cell count is in normal range 6900 with 73.6% neutrophils lactic acid is 0.5, not elevated patient does have hypokalemia potassium is 3.1 with renal insufficiency BUN 32 creatinine 1.99 IV access obtained specimens collected and sent for resulting patient given oral potassium replacement 40 mEq a one-time dose of IV vancomycin after blood cultures and wound culture obtained Patient resting comfortably continues to complain of increasing swelling to the draining abscess site which is now dry however chest wall fullness and tenderness underneath the left breast with mild erythema CBC is automated differential labs are normal range and lactic acid is not elevated however with open wound and spontaneous drainage will admit for observation for additional IV antibiotics anticipate patient will be stable for outpatient and therapy subsequently Discussed with PARAS DICK --- OBS for additional IV antibiotic Physician Communication Physician Communication discussed sivakumar CRAIN MD Diagnosis Primary Impression: Cellulitis of chest wall Additional Impression: Abscess Admitting Information Admitting Physician Requests: Observation Geneva Carlisle MD Feb 05, 2018 23:41
[2018-02-06] MEDS ORDERED: ONDANSETRON HCL 4 MG/2 ML VIAL IV PUSH ONE (01:30)
[2018-02-06] MEDS ORDERED: MORPHINE SULFATE 2 MG/ML SYRINGE IV PUSH ONE (01:30)
[2018-02-06 01:33] VITALS: BP 133/77; PULSE 92; RESP 18; O2SAT 100
[2018-02-06] MEDS ORDERED: SODIUM CHLORIDE 0.9% FLUSH 10 ML FLUSH IV FLUSH PRN (03:15)
[2018-02-06] MEDS ORDERED: ACETAMINOPHEN 325 MG TAB PO PRN (03:15)
[2018-02-06] MEDS ORDERED: Vancomycin Consult Pharmacy 1 EA OTHER SCH (03:15)
[2018-02-06] MEDS ORDERED: NALOXONE HCL 0.4 MG/ML AMP IV PUSH PRN (03:15)
[2018-02-06 03:56] VITALS: BP 125/72; PULSE 80; RESP 14; O2SAT 99
[2018-02-06 07:39] VITALS: BP 130/75; PULSE 81; RESP 15; O2SAT 100
[2018-02-06] MEDS: LEVOTHYROXINE SODIUM 125 MCG TAB PO SCH (07:40)
[2018-02-06] MEDS ORDERED: LORazepam 2 MG/ML VIAL IV PUSH ONE (08:00)
[2018-02-06] MEDS: SPIRONOLACTONE 25 MG TAB PO SCH (08:07)
[2018-02-06] MEDS ORDERED: predniSONE 10 MG TAB PO SCH (09:00)
--- NOTE | 2018-02-06 09:09 | HHI.HP ---
HPI Service [facility] Primary Care Physician Edgard Tompkins DO Admission Diagnosis chest wound infection/cellulitis Diagnoses: Chief Complaint: wound infection Travel History International Travel<30 Days: No Contact w/Intl Traveler <30 Da: No Traveled to Known Affected Are: No History of Present Illness Written by Brenda Marie, acting as scribe for Dr. Henderson on 02/06/18 at 08:55. 42-year-old female with history of lupus, Brugada syndrome, pacemaker/ defibrillator, hypothyroidism, CKD stage III, presents with concern for sternal wound infection and constant chest pain. The patient has history of syncope with Brugada syndrome, s/p pacer/AICD placement in , subsequently removed due to infection/bacteremia, now s/p replacement 3 weeks ago. She was also recently admitted 01/18-01/24 for syncope, bradycardia, SHABANA, s/p dopamine drip, then heart rate stabilized and she was cleared by cardiology. She was also discharged on bactroban ointment to apply to sternal wound which she has been compliant. She now returns to the ED with chest pain located throughout the left lower anterior chest that radiates around the left lateral thorax that began 2 weeks ago; described as constant burning pain, "feels like fire", worse with any movement. She reports chills, and a fever of 104 a few days ago, but she has been taking tylenol and ibuprofen and no recurrent fevers. Yesterday on February 05, she woke up and her sternal wound and left lateral chest was severely edematous. She rolled over to her side and the wound "opened up" with purulent drainage. She reports intermittent nausea and occasional vomiting over the past few weeks. She does report some lightheadedness, worse upon standing. Denies any shortness of breath. Her it security consultant is Dr. Cervantes. She has no other medical complaints to report at this time. Review of Systems Except as stated in HPI: all other systems reviewed are Neg Past Family Social History Past Medical History Brugada syndrome Recurrent hypokalemia Lupus Hypothyroidism CKD stage III Anxiety GERD Past Surgical History Pacer placement Sep 2017, removal Dec 2017, and now with replacement 3 weeks ago PEG tube placement/removal EGD/colonoscopies Appendectomy Laparotomies Cystoscopies Reported Medications Valium (Diazepam) 10 Mg Tab 10 Mg PO TID PRN Levothyroxine (Levothyroxine Sodium) 125 Mcg Tab 125 Mcg PO DAILY Prednisone 20 Mg Tab 40 Mg PO DAILY Take 40mg (2 tabs) daily x7 days, then 20mg (1 tab) daily x7 days, then 10mg (1/2 tab) daily x7days, then stop. Magnesium Oxide 400 Mg Tab 400 Mg PO DAILY Pantoprazole (Pantoprazole Sodium) 40 Mg Tab 40 Mg PO HS Potassium Chloride ER (Potassium Chloride) 20 Meq Tab 40 Meq PO TID Ferrous Sulfate 325 Mg (65 Mg Iron) Tablet 325 Mg PO BIDPC Vitamin D3 (Cholecalciferol) 10,000 Unit Cap 20,000 Units PO Q3D @ HS K-Phos (Potassium Phosphate Monobasic) 500 Mg Tab 500 Mg PO PCHS Spironolactone 25 Mg Tab 25 Mg PO DAILY Allergies: Coded Allergies: Fish Containing Products (Unverified Allergy, Severe, SWELLING IN THROAT, SOB, 02/06/18) cephalexin (Unverified Allergy, Severe, RASH,SWELLING, 02/06/18) ketorolac (Unverified Allergy, Severe, RASH, 02/06/18) penicillin G (Unverified Allergy, Severe, RASH,SWELLING, 02/06/18) prochlorperazine (Unverified Allergy, Mild, DYSTONIC REACTION, 02/06/18) promethazine (Unverified Allergy, Mild, DYSTONIC REACTION, 02/06/18) gabapentin (Unverified Adverse Reaction, Severe, SEIZURES, 02/06/18) Active Ordered Medications Current Medications Medications (Trade) Dose Ordered Sig/Osito Route Start Time Stop Time Status Last Admin Pharmacy Profile Note 0 ml @ 0 mls/hr UNSCH OTHER 02/06/18 03:15 (NS Flush) 2 ml UNSCH PRN IV FLUSH 02/06/18 03:15 (NS Flush) 2 ml BID IV FLUSH 02/06/18 09:00 (Tylenol) 650 mg Q4H PRN PO 02/06/18 03:15 (Narcan Inj) 0.4 mg UNSCH PRN IV PUSH 02/06/18 03:15 (Deltasone) 10 mg DAILY PO 02/06/18 09:00 02/13/18 08:59 02/06/18 08:07 (Ferrous Sulfate) 325 mg BIDPC PO 02/06/18 09:00 (Synthroid) 125 mcg DAILY@0700 PO 02/06/18 07:00 02/06/18 07:40 (Mag-Ox) 400 mg DAILY PO 02/06/18 09:00 (Protonix) 40 mg HS PO 02/06/18 21:00 (KCl) 40 meq TID PO 02/06/18 09:00 (K-Phos) 500 mg PCHS PO 02/06/18 09:30 (Aldactone) 25 mg DAILY PO 02/06/18 09:00 02/06/18 08:07 Vancomycin HCl 500 mg/Sodium Chloride 100 ml @ 200 mls/hr ONCE ONCE IV 02/06/18 10:00 02/06/18 10:29 Family History Mother with breast cancer Maternal females with SLE and hypothyroidism Father with no significant H Social History Denies any tobacco, alcohol, or illicit drug use. Physical Exam Vital Signs Vital Signs Date Time Temp Pulse Resp B/P (MAP) Pulse Ox O2 Delivery O2 Flow Rate FiO2 02/06/18 07:39 81 15 130/75 (93) 100 Room Air 02/06/18 03:56 80 14 125/72 (89) 99 Room Air 02/06/18 01:33 92 18 133/77 (95) 100 Room Air 02/05/18 23:10 80 18 138/77 (97) 100 Room Air 02/05/18 19:42 99.0 106 20 162/95 (117) 100 Physical Exam GENERAL: Well-nourished, well-developed middle aged female patient in [facility]. SKIN: Warm and dry. 2cm distal sternal open wound with purulent drainage, surrounding edema, tender to palpation. Left lateral axillary region with palpable subcutaneous pacer/AICD with surrounding edema, TTP, no open wounds/ drainage. HEAD: Normocephalic. Atraumatic. EYES: Pupils equal and round. No scleral icterus. No injection or drainage. ENT: No nasal bleeding or discharge. Mucous membranes pink and moist. NECK: Supple. Trachea midline. CARDIOVASCULAR: Regular rate and rhythm. No murmur appreciated. RESPIRATORY: No accessory muscle use. Clear to auscultation. Breath sounds equal bilaterally. GASTROINTESTINAL: Abdomen soft, non-tender, nondistended. Normoactive bowel sounds x4. MUSCULOSKELETAL: No obvious deformities. Extremities without clubbing, cyanosis , or edema. NEUROLOGICAL: Awake and alert. No obvious cranial nerve deficits. Motor grossly within normal limits. Normal speech. PSYCHIATRIC: Appropriate mood and affect; insight and judgment normal. Laboratory Laboratory Tests Test 02/05/18 21:42 White Blood Count 6.9 Red Blood Count 4.15 Hemoglobin 11.4 Hematocrit 34.0 Mean Corpuscular Volume 82.0 Mean Corpuscular Hemoglobin 27.4 Mean Corpuscular Hemoglobin Concent 33.4 Red Cell Distribution Width 19.1 Platelet Count 184 Mean Platelet Volume 6.8 Neutrophils (%) (Auto) 73.6 Lymphocytes (%) (Auto) 16.0 Monocytes (%) (Auto) 7.9 Eosinophils (%) (Auto) 1.7 Basophils (%) (Auto) 0.8 Neutrophils # (Auto) 5.1 Lymphocytes # (Auto) 1.1 Monocytes # (Auto) 0.5 Eosinophils # (Auto) 0.1 Basophils # (Auto) 0.1 CBC Comment DIFF FINAL Differential Comment Prothrombin Time 10.1 Prothromb Time International Ratio 1.0 Activated Partial Thromboplast Time 27.3 Blood Urea Nitrogen 32 Creatinine 1.99 Random Glucose 101 Total Protein 7.7 Albumin 3.6 Calcium Level 9.3 Alkaline Phosphatase 88 Aspartate Amino Transf (AST/SGOT) 21 Alanine Aminotransferase (ALT/SGPT) 49 Total Bilirubin 0.3 Sodium Level 142 Potassium Level 3.1 Chloride Level 104 Carbon Dioxide Level 27.8 Anion Gap 10 Estimat Glomerular Filtration Rate 28 Lactic Acid Level 0.5 Date/Time Source Procedure Growth Status 02/05/18 23:48 Blood Peripheral Aerobic Blood Culture Pending Received 02/05/18 23:48 Blood Peripheral Anaerobic Blood Culture Pending Received 02/05/18 23:48 Wound Chest Gram Stain Pending Received 02/05/18 23:48 Wound Chest Wound Culture Pending Received Result Diagram: 02/05/[id number]/05/[id number] Imaging Last Impressions Chest X-Ray 02/05/18 0000 Signed Impressions: Service Date/Time: Monday, February 05, 2018 19:55 - CONCLUSION: 1. No active disease. Defibrillator wire overlies the left hemithorax anteriorly. Hay Day MD Caprini VTE Risk Assessment Caprini VTE Risk Assessment: No/Low Risk (score <= 1) Caprini Risk Assessment Model Point Value = 1 Point Value = 2 Point Value = 3 Point Value = 5 Age 41-60 Minor surgery BMI > 25 kg/m2 Swollen legs Varicose veins or History of unexplained or recurrent spontaneous Oral contraceptives or hormone replacement Sepsis (< 1 month) Serious lung disease, including pneumonia (< 1 month) Abnormal pulmonary function Acute myocardial infarction Congestive heart failure (< 1 month) History of inflammatory bowel disease Medical patient at bed rest Age 61-74 Arthroscopic surgery Major open surgery (> 45 min) Laparoscopic surgery (> 45 min) Malignancy Confined to bed (> 72 hours) Immobilizing plaster cast Central venous access Age >= 75 History of VTE Family history of VTE Factor V Leiden Prothrombin [id number] Lupus anticoagulant Anticardiolipin antibodies Elevated serum homocysteine Heparin-induced thrombocytopenia Other congenital or acquired thrombophilia Stroke (< 1 month) Elective arthroplasty Hip, pelvis, or leg fracture Acute spinal cord injury (< 1 month) Prophylaxis Regimen Total Risk Factor Score Risk Level Prophylaxis Regimen 0-1 Low Early ambulation 2 Moderate Order ONE of the following: *Sequential Compression Device (SCD) *Heparin 5000 units SQ BID 3-4 Higher Order ONE of the following medications: *Heparin 5000 units SQ TID *Enoxaparin/Lovenox 40 mg SQ daily (WT < 150 kg, CrCl > 30 mL/min) *Enoxaparin/Lovenox 30 mg SQ daily (WT < 150 kg, CrCl > 10-29 mL/min) *Enoxaparin/Lovenox 30 mg SQ BID (WT < 150 kg, CrCl > 30 mL/min) AND/OR *Sequential Compression Device (SCD) 5 or more Highest Order ONE of the following medications: *Heparin 5000 units SQ TID (Preferred with Epidurals) *Enoxaparin/Lovenox 40 mg SQ daily (WT < 150 kg, CrCl > 30 mL/min) *Enoxaparin/Lovenox 30 mg SQ daily (WT < 150 kg, CrCl > 10-29 mL/min) *Enoxaparin/Lovenox 30 mg SQ BID (WT < 150 kg, CrCl > 30 mL/min) AND *Sequential Compression Device (SCD) Assessment and Plan Problem List: (1) Cellulitis of chest wall ICD Code: L03.313 - Cellulitis of chest wall Status: Acute (2) SHABANA (acute kidney injury) ICD Code: N17.9 - Acute kidney failure, unspecified Assessment and Plan 42-year-old female with history of lupus, Brugada syndrome, pacemaker/ defibrillator, hypothyroidism, CKD stage III, presents with concern for sternal wound infection and constant chest pain. Recurrent AICD Infection and Sternal Wound Cellulitis: afebrile, no leukocytosis , however +tachycardia and wound with purulent drainage. CXR reviewed and unremarkable. Need to rule out abscess vs recurrent bacteremia. -Check Chest CT with contrast if renal function improves, awaiting BMP -Wound and Blood cultures collected and pending -Continue antibiotics with IV Vanco, pharmacy consulted -Tylenol prn fever, continue patient's Oramorph prn pain -Consult patient's it security consultant Dr. Cervantes -Consider ID consulted depending on results of cultures and imaging Atypical Chest Pain: suspect secondary to infection, pain reproducible with palpation and movement -Continue patient's Oramorph 15mg q8h prn pain -monitor on telemetry Brugada Syndrome: s/p pacer/AICD -monitor on telemetry -cardiology consulted as above SHABANA on CKD stage III: suspect secondary to dehydration. Cr 1.99, previously 1.24 on 01/24/18. -give IVF hydration -monitor BMP -avoid nephrotoxins Hypokalemia: patient with chronic history of hypokalemia, on KCl 40meq tid at home. K 3.1 upon arrival -continue patient's potassium replacement -monitor BMP, give additional replacement as needed Lupus: chronic -continue patient's prednisone 40mg daily -continue pain control with patient's Oramorph 15mg q8h prn Anxiety: chronic -continue patient's valium 10mg tid prn Hypothyroidism: chronic -continue patient's Synthroid 125mcg daily DVT Prophylaxis: mariano/SCDs; avoid chemoprophylaxis incase surgical intervention is indicated Discussed Condition With Patient Attending Statement This note was transcribed by piyush Marie. I, Dr. Ayad Henderson personally performed the history, physical exam, and medical decision making; and confirmed the accuracy of the information in the transcribed note. Authenticated by Dr. Ayad Henderson on 02/06/18 at 19:14. Brenda Marie PA-C Feb 06, 2018 09:09 Ayad Henderson MD Feb 06, 2018 19:14
[2018-02-06] MEDS: SODIUM CHLORIDE 0.9% FLUSH 10 ML FLUSH IV FLUSH SCH ×2 (09:37→21:04)
[2018-02-06] MEDS: FERROUS SULFATE 325 MG (65 MG ELEMENTAL IRON) TAB PO SCH ×2 (09:37→18:34)
[2018-02-06] MEDS: POTASSIUM CHLORIDE 20 MEQ CONTROLLED RELEASE TAB PO SCH ×3 (09:37→18:34)
[2018-02-06] MEDS: POTASSIUM PHOSPHATE MONOBASIC 500 MG TAB PO SCH ×4 (09:52→21:04)
[2018-02-06] MEDS ORDERED: VANCOMYCIN 500 MG/NS 100 ML IV ONE ×2 (10:00)
[2018-02-06 10:16] LABS: BICARBONATE 24.5 MEQ/L (21.0-32.0); CALCIUM 8.8 MG/DL (8.5-10.1); CREATININE 1.62 MG/DL (0.50-1.00)
[2018-02-06 10:19] LABS: AUTOMATED NEUTROPHIL # 5.2 TH/MM3 (1.8-7.7); BASOPHIL # 0.1 TH/MM3 (0-0.2); BASOPHIL % 0.9 % (0.0-2.0); EOSINOPHIL # 0.2 TH/MM3 (0-0.4); EOSINOPHIL % 2.5 % (0.0-4.0); HEMATOCRIT 32.1 % (35.0-46.0); HEMOGLOBIN 10.6 GM/DL (11.6-15.3); LYMPH % 22.9 % (9.0-44.0); LYMPHOCYTE # 1.9 TH/MM3 (1.0-4.8); MEAN CELL VOLUME 82.9 FL (80.0-100.0); MEAN CORPUSCULAR HEMOGLOBIN 27.4 PG (27.0-34.0); MEAN PLATELET VOLUME 7.2 FL (7.0-11.0); MONO % 9.2 % (0.0-8.0); MONOCYTE # 0.7 TH/MM3 (0-0.9); NEUT % 64.5 % (16.0-70.0); PLATELET COUNT 171 TH/MM3 (150-450); RED BLOOD COUNT 3.87 MIL/MM3 (4.00-5.30); WHITE BLOOD COUNT 8.1 TH/MM3 (4.0-11.0)
[2018-02-06] MEDS ORDERED: IODIXANOL 320 MG/ML 10 ML VIAL (for Rad CT) IVCONTRAST ONE (11:13)
--- NOTE | 2018-02-06 11:24 | RADRPT ---
EXAM DATE/TIME: 02/06/2018 10:52 [place] COMPARISON: No previous studies available for comparison. INDICATIONS : Left sternal wound with drainage. Evaluate for abscess. IV CONTRAST: 50 cc Visipaque (iodixanol) IV RADIATION DOSE: 5.94 CTDIvol (mGy) MEDICAL HISTORY : Renal failure, chronic. Lupus. SURGICAL HISTORY : Hysterectomy. Appendectomy.Pacemaker. ENCOUNTER: Initial ACUITY: 4 - 6 days PAIN SCALE: 8/10 LOCATION: Left chest TECHNIQUE: Volumetric scanning of the chest was performed. Using automated exposure control and adjustment of t he mA and/or kV according to patient size, radiation dose was kept as low as reasonably achievable to obtain optimal diagnostic quality images. DICOM format image data is available electronically for review and comparison. Follow-up recommendations for detected pulmonary nodules are based at a minimum on nodule size and pa tient risk factors according to Fleischner Society Guidelines. FINDINGS: LUNGS: There is no consolidation or pneumothorax. No concerning pulmonary nodule is visualized. PLEURA: There is no pleural thickening or pleural effusion. MEDIASTINUM: The heart and great vessels demonstrate no acute abnormality. There is no mediastinal or hilar lymph adenopathy. AXILLAE: Within normal limits. No lymphadenopathy. SKELETAL: There is a cardiac pacer/defibrillator. There is a single lead in the presternal subcutaneous tissues . There is a suspected 11 mm fluid collection adjacent to the end of the lead anterior to the lower s ternum, series 601 image 11. The soft tissues around the lead appear mildly indurated but I don't see a drainable fluid collection otherwise. The unit itself is in the left mid axillary line with associ ated metallic streak artifact but also no definite drainable fluid collection. I don't see any destru ction of the sternum or other visualized osseous structures. MISCELLANEOUS: The visualized upper abdominal organs demonstrate no acute abnormality. CONCLUSION: External cardiac pacer/defibrillator with a single lead. The lead courses from the left midaxillary i mplanted unit and has a 90 bend cephalad at the level of the lower sternum and with an adjacent smal l apparent fluid collection. Otherwise mildly edematous/indurated soft tissues around the lead. No CT evidence of osteomyelitis. No acute abnormality demonstrated within the thoracic cavity. Brian Arrieta MD on February 06, 2018 at 11:16 Board Certified Radiologist. This report was verified electronically.
[2018-02-06 12:00] VITALS: BP 135/87; PULSE 99; RESP 19; TEMP 99.2; O2SAT 96
[2018-02-06] MEDS ORDERED: SODIUM CHLOR 0.9% 1000 ML INJ 1,000 ML IV SCH (12:00)
[2018-02-06] MEDS: MORPHINE SULFATE 15 MG CONTROLLED RELEASE TAB PO PRN ×2 (12:48→21:05)
[2018-02-06] MEDS: DIAZEPAM 10 MG TAB PO PRN ×2 (12:48→21:04)
[2018-02-06] MEDS: MAGNESIUM OXIDE 400 MG TAB PO SCH (12:51)
[2018-02-06] MEDS ORDERED: predniSONE 10 MG TAB PO ONE (13:00)
--- NOTE | 2018-02-06 16:18 | EKG ---
Date Performed: 02/05/2018 Time Performed: 23:23:40 PTAGE: 42 years EKG: Sinus rhythm MODERATE INTRAVENTRICULAR CONDUCTION DELAY NONSPECIFIC T-WAVE ABNORMALITY PROLONGED QT INTERVAL ABNO RMAL ECG PREVIOUS TRACING : 01/19/2018 08.09 Brugada pattern appears to have resolved, but clinical jake elation is strongly recommended. DOCTOR: Sonido Michelle Interpretating Date/Time 02/06/2018 16:14:38
[2018-02-06 17:07] VITALS: BP 109/83; PULSE 88; RESP 18; TEMP 98.4; O2SAT 97
[2018-02-06 20:54] VITALS: BP 108/63; PULSE 84; RESP 18; TEMP 98.5; O2SAT 100
[2018-02-06] MEDS: PANTOPRAZOLE SOD 40 MG DELAYED RELEASE TAB PO SCH (21:04)
[2018-02-07] VITALS (20 sets, daily range): BP systolic 100–131; BP diastolic 56–76; PULSE 66–95; RESP 16–20; TEMP 97.9–98.9; O2SAT 96–100
[2018-02-07] MEDS: DIAZEPAM 10 MG TAB PO PRN ×3 (05:45→22:38)
[2018-02-07] MEDS: MORPHINE SULFATE 15 MG CONTROLLED RELEASE TAB PO PRN ×3 (05:45→22:38)
[2018-02-07] MEDS: LEVOTHYROXINE SODIUM 125 MCG TAB PO SCH (05:45)
[2018-02-07] MEDS ORDERED: Vancomycin Consult Pharmacy 1 EA OTHER SCH (07:30)
--- NOTE | 2018-02-07 08:17 | HHI.PR ---
Subjective Remarks Follow up for suspected AICD infection, possible abscess. The patient reports continued bloody and purulent drainage from the distal sternal wound. She states it feels as though the fluid is coming from her AICD pocket and under the left breast. She reports continued pain and edema around the AICD at the left axillary region and under the left breast to the center of her chest. Denies fevers but does report chills overnight. Requesting regular diet. Denies any other medical complaints including lightheadedness, dizziness, shortness of breath, abdominal pain, nausea/vomiting, or diarrhea. Objective Vitals Vital Signs Date Time Temp Pulse Resp B/P (MAP) Pulse Ox O2 Delivery O2 Flow Rate FiO2 02/07/18 07:08 98.7 76 16 106/62 (77) 99 02/07/18 06:45 15 02/07/18 05:34 98.4 78 16 131/76 (94) 96 02/07/18 04:00 66 02/07/18 02:01 97.9 73 17 111/61 (78) 97 02/06/18 20:54 98.5 84 18 108/63 (78) 100 02/06/18 17:07 98.4 88 18 109/83 (92) 97 02/06/18 12:00 99.2 99 19 135/87 (103) 96 02/06/18 10:21 I/O 02/06/18 02/06/18 02/06/18 02/07/18 02/07/18 02/07/18 07:00 15:00 23:00 07:00 15:00 23:00 Intake Total 250 ml 100 ml Balance 250 ml 100 ml Intake IV Total 250 ml 100 ml # Voids 1 # Bowel Movements 1 Result Diagram: 02/06/18 0921 02/06/18 0921 Imaging Last Impressions Chest CT 02/06/18 0000 Signed Impressions: Service Date/Time: Tuesday, February 06, 2018 10:52 - CONCLUSION: External cardiac pacer/defibrillator with a single lead. The lead courses from the left midaxillary implanted unit and has a 90 bend cephalad at the level of the lower sternum and with an adjacent small apparent fluid collection. Otherwise mildly edematous/indurated soft tissues around the lead. No CT evidence of osteomyelitis. No acute abnormality demonstrated within the thoracic cavity. Brian Arrieta MD Chest X-Ray 02/05/18 0000 Signed Impressions: Service Date/Time: Monday, February 05, 2018 19:55 - CONCLUSION: 1. No active disease. Defibrillator wire overlies the left hemithorax anteriorly. Hay Day MD Objective Remarks GENERAL: Well-nourished, well-developed middle aged female patient in [facility]. SKIN: Warm and dry. 2cm distal sternal open wound with purulent drainage, surrounding edema, tender to palpation. Left lateral axillary region with palpable subcutaneous AICD with surrounding edema, TTP, no open wounds/ drainage. HEENT: Normocephalic. Atraumatic. Pupils equal and round. Mucous membranes pink and moist. CARDIOVASCULAR: Regular rate and rhythm. No murmur appreciated. RESPIRATORY: No accessory muscle use. Clear to auscultation. Breath sounds equal bilaterally. GASTROINTESTINAL: Abdomen soft, non-tender, nondistended. Normoactive bowel sounds x4. MUSCULOSKELETAL: No obvious deformities. Extremities without clubbing, cyanosis , or edema. NEUROLOGICAL: Awake and alert. No obvious cranial nerve deficits. Motor grossly within normal limits. Normal speech. PSYCHIATRIC: Appropriate mood and affect; insight and judgment normal. Medications and IVs Current Medications Medications (Trade) Dose Ordered Sig/Osito Route Start Time Stop Time Status Last Admin (NS Flush) 2 ml UNSCH PRN IV FLUSH 02/06/18 03:15 (NS Flush) 2 ml BID IV FLUSH 02/06/18 09:00 02/07/18 09:19 (Tylenol) 650 mg Q4H PRN PO 02/06/18 03:15 (Narcan Inj) 0.4 mg UNSCH PRN IV PUSH 02/06/18 03:15 (Ferrous Sulfate) 325 mg BIDPC PO 02/06/18 09:00 02/07/18 09:18 (Synthroid) 125 mcg DAILY@0700 PO 02/06/18 07:00 02/07/18 05:45 (Mag-Ox) 400 mg DAILY PO 02/06/18 09:00 02/07/18 09:17 (Protonix) 40 mg HS PO 02/06/18 21:00 02/06/18 21:04 (KCl) 40 meq TID PO 02/06/18 09:00 02/07/18 09:18 (K-Phos) 500 mg PCHS PO 02/06/18 09:30 02/07/18 09:18 (Aldactone) 25 mg DAILY PO 02/06/18 09:00 02/07/18 09:19 (Valium) 10 mg TID PRN PO 02/06/18 12:00 02/07/18 05:45 (Deltasone) 40 mg DAILY PO 02/07/18 09:00 02/07/18 09:18 (Oramorph Sr) 15 mg Q8HR PRN PO 02/06/18 12:30 02/07/18 05:45 Pharmacy Profile Note 0 ml @ 0 mls/hr UNSCH OTHER 02/07/18 07:30 Vancomycin HCl 1250 mg/Sodium Chloride 262.5 ml @ 250 mls/hr Q24H IV 02/07/18 12:00 A/P Problem List: (1) Cellulitis of chest wall ICD Code: L03.313 - Cellulitis of chest wall Status: Acute (2) SHABANA (acute kidney injury) ICD Code: N17.9 - Acute kidney failure, unspecified Assessment and Plan 42-year-old female with history of lupus, Brugada syndrome, pacemaker/ defibrillator, hypothyroidism, CKD stage III, presents with concern for sternal wound infection and constant chest pain. Recurrent AICD Infection with Sternal Wound Cellulitis: afebrile, no leukocytosis, however +tachycardia and wound with purulent drainage. CXR reviewed and unremarkable. Need to rule out abscess vs recurrent bacteremia. -Chest CT reviewed, shows external cardiac pacer/defibrillator with a single lead that courses from the left midaxillary implanted unit and has a 90deg bend cephalad at the level of the lower sternum and with an adjacent small apparent fluid collection. Otherwise mildly edematous/indurated soft tissues around the lead. No CT evidence of osteomyelitis. No acute abnormality demonstrated within the thoracic cavity. 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 Guerra, appreciate recommendations -Obtain records from previous hospitalization at , including ID Dr. Gardner notes, echo, imaging, cultures, etc. -Chest U/S and Echocardiogram ordered -Admit to inpatient and transfer to [facility] per Dr. Guerra Atypical Chest Pain: suspect secondary to infection, pain reproducible with palpation and movement -Continue patient's Oramorph 15mg q8h prn pain -monitor on telemetry Brugada Syndrome: s/p pacer/AICD -monitor on telemetry -cardiology consulted as above SHABANA on CKD stage III: suspect secondary to dehydration. Cr 1.99, previously 1.24 on 01/24/18. -give IVF hydration -monitor BMP, improving with Cr 1.24 -avoid nephrotoxins Hypokalemia: patient with chronic history of hypokalemia, on KCl 40meq tid at home. K 3.1 upon arrival -continue patient's potassium replacement -monitor BMP, give additional replacement as needed Lupus: chronic -continue patient's prednisone 40mg daily -continue pain control with patient's Oramorph 15mg q8h prn Anxiety: chronic -continue patient's valium 10mg tid prn Hypothyroidism: chronic -continue patient's Synthroid 125mcg daily DVT Prophylaxis: mariano/SCDs; avoid chemoprophylaxis incase surgical intervention is indicated Discharge Planning Admit to inpatient and transfer to [facility] per Dr. Guerra. Likely needs AICD removal and long-term IV antibiotics. I spent 35 minutes [id number] with the patient or on the [place] discussing the patient's disposition, prognosis, and plan of care with her caregivers. Over half the time spent was devoted to counseling the patient regarding diagnosis, treatment, placement, and coordinating care with caregivers and case management Brenda Marie PA-C Feb 07, 2018 8:17 am
[2018-02-07 08:23] LABS: BASOPHIL % 0.4 % (0.0-2.0); EOSINOPHIL # 0.1 TH/MM3 (0-0.4); EOSINOPHIL % 0.6 % (0.0-4.0); HEMATOCRIT 29.9 % (35.0-46.0); HEMOGLOBIN 9.8 GM/DL (11.6-15.3); LYMPH % 11.6 % (9.0-44.0); LYMPHOCYTE # 1.2 TH/MM3 (1.0-4.8); MEAN CELL VOLUME 84.8 FL (80.0-100.0); MEAN CORPUSCULAR HEMOGLOBIN 27.8 PG (27.0-34.0); MEAN CORPUSCULAR HGB CONC 32.8 % (32.0-36.0); MEAN PLATELET VOLUME 7.4 FL (7.0-11.0); MONO % 12.4 % (0.0-8.0); MONOCYTE # 1.3 TH/MM3 (0-0.9); PLATELET COUNT 172 TH/MM3 (150-450); RED BLOOD COUNT 3.52 MIL/MM3 (4.00-5.30); RED CELL DISTRIBUTION WIDTH 18.7 % (11.6-17.2); WHITE BLOOD COUNT 10.7 TH/MM3 (4.0-11.0)
[2018-02-07 08:45] LABS: BICARBONATE 26.6 MEQ/L (21.0-32.0); CALCIUM 8.7 MG/DL (8.5-10.1); CREATININE 1.24 MG/DL (0.50-1.00)
[2018-02-07] MEDS: MAGNESIUM OXIDE 400 MG TAB PO SCH (09:17)
[2018-02-07] MEDS: POTASSIUM CHLORIDE 20 MEQ CONTROLLED RELEASE TAB PO SCH ×3 (09:18→18:28)
[2018-02-07] MEDS: FERROUS SULFATE 325 MG (65 MG ELEMENTAL IRON) TAB PO SCH ×2 (09:18→18:28)
[2018-02-07] MEDS: predniSONE 20 MG TAB PO SCH (09:18)
[2018-02-07] MEDS: POTASSIUM PHOSPHATE MONOBASIC 500 MG TAB PO SCH ×4 (09:18→21:06)
[2018-02-07] MEDS: SODIUM CHLORIDE 0.9% FLUSH 10 ML FLUSH IV FLUSH SCH ×2 (09:19→21:06)
[2018-02-07] MEDS: SPIRONOLACTONE 25 MG TAB PO SCH (09:19)
--- NOTE | 2018-02-07 10:20 | PD.ID.CON ---
History of Present Illness Service Infectious disease Consult Requested By Hospitalist service Reason for Consult Concern for recurrent AICD infection Primary Care Physician Edgard Tompkins DO Diagnoses: History of Present Illness Patient seen and examined with Dr. Guerra This is a 42-year-old female with past medical history significant for lupus, gastroparesis, Crohn's disease, hypothyroidism, chronic kidney disease stage III , recurrent hypokalemia, anxiety, on chronic immunosuppressive and Brugada syndrome status post AICD placement October 2017 with history of previous device infection who presents to [facility] with complaints of chest pain secondary to sternal wound infection. Her electrician deck is Dr. Cervantes who placed an AICD device in October of 2017. Patient states she started to feel unwell the end of November. In December 2017, she was admitted to [facility], completed 1 week of IV antibiotics followed by removal of the AICD device and had a subsequent treatment of antibiotics 1 week. She then had an AICD device reimplanted and completed 1 month of IV antibiotics. Patient is unsure but thinks that she was treated with Levaquin. She was not discharged on any oral antibiotic treatment. At that time, she was managed by infectious disease physician Dr. Gardner. She was recently admitted 01/18-01/24 for syncope, bradycardia, SHABANA, s/p dopamine drip, then heart rate stabilized and she was cleared by cardiology. At that time, she had a small wound overlying the sternum and was given Bactroban at discharge. About 2 weeks ago, she began developing left axillary pain over the site of her AICD device that radiated underneath the left breast into the mid sternum. She has had a poorly healing sore over the mid chest that began to enlarge as well as increased swelling and hardness underneath the left breast. Yesterday the sore opened up with purulent drainage. She reports chills but denies any fever or sweats. She denies any cough or shortness of breath. She denies any nausea or vomiting. States that she has chronic abdominal pain secondary to Crohn's disease and gastroparesis that is unchanged. She has a history of MRSA infection left axilla many years ago but states she's been tested multiple times for MRSA since then and is always been negative. She is not sure of what her cultures were that she grew when admitted at [facility] in December with infection of the AICD device but is certain it was not MRSA. Infectious disease has been consulted for evaluation and management of recurrent AICD device infection. Patient does not have any evidence of sepsis. She is afebrile and white count is within normal limits. Lactic acid is normal. CT of the chest was obtained revealing external cardiac pacer/ defibrillator with a single lead, coursing from the left midaxillary implanted unit with 90 bend cephalad at the level of the lower sternum with an adjacent small apparent fluid collection, otherwise mildly edematous/indurated soft tissues around the lead, no evidence of osteomyelitis. (Robyn Baldwin) Review of Systems Except as stated in HPI: all other systems reviewed are Neg (Robyn Baldwin) Past Family Social History Allergies: Coded Allergies: Fish Containing Products (Unverified Allergy, Severe, SWELLING IN THROAT, SOB, 02/06/18) cephalexin (Unverified Allergy, Severe, RASH,SWELLING, 02/06/18) ketorolac (Unverified Allergy, Severe, RASH, 02/06/18) penicillin G (Unverified Allergy, Severe, RASH,SWELLING, 02/06/18) prochlorperazine (Unverified Allergy, Mild, DYSTONIC REACTION, 02/06/18) promethazine (Unverified Allergy, Mild, DYSTONIC REACTION, 02/06/18) gabapentin (Unverified Adverse Reaction, Severe, SEIZURES, 02/06/18) Past Medical History Brugada syndrome Crohn's disease Lupus Recurrent hypokalemia Hypothyroidism Chronic kidney disease stage III Anxiety GERD Endometriosis Past Surgical History AICD placement Oct 2017 with subsequent removal December 2017 and replacement approximately 3 weeks ago. PEG tube placement/removal Port placement and subsequent removal EGD/colonoscopies Appendectomy Laparotomies Ectopic Cystoscopies Reported Medications Valium (Diazepam) 10 Mg Tab 10 Mg PO TID PRN Levothyroxine (Levothyroxine Sodium) 125 Mcg Tab 125 Mcg PO DAILY Prednisone 20 Mg Tab 40 Mg PO DAILY Take 40mg (2 tabs) daily x7 days, then 20mg (1 tab) daily x7 days, then 10mg (1/2 tab) daily x7days, then stop. Magnesium Oxide 400 Mg Tab 400 Mg PO DAILY Pantoprazole (Pantoprazole Sodium) 40 Mg Tab 40 Mg PO HS Potassium Chloride ER (Potassium Chloride) 20 Meq Tab 40 Meq PO TID Ferrous Sulfate 325 Mg (65 Mg Iron) Tablet 325 Mg PO BIDPC Vitamin D3 (Cholecalciferol) 10,000 Unit Cap 20,000 Units PO Q3D @ HS K-Phos (Potassium Phosphate Monobasic) 500 Mg Tab 500 Mg PO PCHS Spironolactone 25 Mg Tab 25 Mg PO DAILY Active Ordered Medications Current Medications Medications (Trade) Dose Ordered Sig/Osito Route Start Time Stop Time Status Last Admin (NS Flush) 2 ml UNSCH PRN IV FLUSH 02/06/18 03:15 (NS Flush) 2 ml BID IV FLUSH 02/06/18 09:00 02/07/18 09:19 (Tylenol) 650 mg Q4H PRN PO 02/06/18 03:15 (Narcan Inj) 0.4 mg UNSCH PRN IV PUSH 02/06/18 03:15 (Ferrous Sulfate) 325 mg BIDPC PO 02/06/18 09:00 02/07/18 09:18 (Synthroid) 125 mcg DAILY@0700 PO 02/06/18 07:00 02/07/18 05:45 (Mag-Ox) 400 mg DAILY PO 02/06/18 09:00 02/07/18 09:17 (Protonix) 40 mg HS PO 02/06/18 21:00 02/06/18 21:04 (KCl) 40 meq TID PO 02/06/18 09:00 02/07/18 09:18 (K-Phos) 500 mg PCHS PO 02/06/18 09:30 02/07/18 09:18 (Aldactone) 25 mg DAILY PO 02/06/18 09:00 02/07/18 09:19 (Valium) 10 mg TID PRN PO 02/06/18 12:00 02/07/18 05:45 (Deltasone) 40 mg DAILY PO 02/07/18 09:00 02/07/18 09:18 (Oramorph Sr) 15 mg Q8HR PRN PO 02/06/18 12:30 02/07/18 05:45 Pharmacy Profile Note 0 ml @ 0 mls/hr UNSCH OTHER 02/07/18 07:30 Family History Mother, lupus, hypothyroidism, Crohn's disease Father, hypertension Social History Denies any tobacco, alcohol, or illicit drug use. (Robyn Baldwin) Physical Exam Vital Signs Vital Signs Date Time Temp Pulse Resp B/P (MAP) Pulse Ox O2 Delivery O2 Flow Rate FiO2 02/07/18 07:08 98.7 76 16 106/62 (77) 99 02/07/18 06:45 15 02/07/18 05:34 98.4 78 16 131/76 (94) 96 02/07/18 04:00 66 02/07/18 02:01 97.9 73 17 111/61 (78) 97 02/06/18 20:54 98.5 84 18 108/63 (78) 100 02/06/18 17:07 98.4 88 18 109/83 (92) 97 02/06/18 12:00 99.2 99 19 135/87 (103) 96 02/06/18 10:21 Physical Exam GENERAL: This is a well-nourished, well-developed female patient, in no apparent distress. Awake and alert SKIN: Cool and dry. (+)area of erythema over 4th digit left foot that patient states is chronic. HEAD: Atraumatic. Normocephalic. No temporal or scalp tenderness. EYES: Pupils equal round and reactive. Extraocular motions intact. No scleral icterus. No injection or drainage. ENT: Nose without bleeding, purulent drainage or septal hematoma. Throat without erythema, tonsillar hypertrophy or exudate. Uvula midline. Airway patent. NECK: Trachea midline. No JVD or lymphadenopathy. Supple, nontender, no meningeal signs. CHEST: (+)2cm distal sternal open wound with no active drainage, mild surrounding edema, tender to palpation. Left lateral axillary region with tender palpable subcutaneous AICD device with mild edema and tenderness to palpation. Tenderness along the course of the lead under the left breast with an area of induration noted proximal to the sternum. Left lateral upper chest surgical incision well approximated, raised, erythematous but does not appear to be infected. Well healed area of previous port site on right anterior chest. CARDIOVASCULAR: Regular rate and rhythm without murmurs, gallops, or rubs. RESPIRATORY: Clear to auscultation. Breath sounds equal bilaterally. No wheezes , rales, or rhonchi. GASTROINTESTINAL: Abdomen soft, nondistended. (+)Mild diffuse tenderness to palpation. No hepato-splenomegaly, or palpable masses. No guarding. MUSCULOSKELETAL: Extremities without clubbing, cyanosis, or edema. No joint tenderness, effusion, or edema noted. No calf tenderness. NEUROLOGICAL: Awake and alert. Cranial nerves II through XII grossly intact. Motor and sensory grossly within normal limits. Five out of 5 muscle strength in all muscle groups. Normal speech. Laboratory Laboratory Tests Test 02/07/18 07:30 White Blood Count 10.7 Red Blood Count 3.52 Hemoglobin 9.8 Hematocrit 29.9 Mean Corpuscular Volume 84.8 Mean Corpuscular Hemoglobin 27.8 Mean Corpuscular Hemoglobin Concent 32.8 Red Cell Distribution Width 18.7 Platelet Count 172 Mean Platelet Volume 7.4 Neutrophils (%) (Auto) 75.0 Lymphocytes (%) (Auto) 11.6 Monocytes (%) (Auto) 12.4 Eosinophils (%) (Auto) 0.6 Basophils (%) (Auto) 0.4 Neutrophils # (Auto) 8.0 Lymphocytes # (Auto) 1.2 Monocytes # (Auto) 1.3 Eosinophils # (Auto) 0.1 Basophils # (Auto) 0.0 CBC Comment DIFF FINAL Differential Comment Blood Urea Nitrogen 24 Creatinine 1.24 Random Glucose 109 Calcium Level 8.7 Sodium Level 146 Potassium Level 3.9 Chloride Level 113 Carbon Dioxide Level 26.6 Anion Gap 6 Estimat Glomerular Filtration Rate 48 Date/Time Source Procedure Growth Status 02/05/18 23:48 Blood Peripheral Aerobic Blood Culture - Preliminary NO GROWTH IN 1 DAY Resulted 02/05/18 23:48 Blood Peripheral Anaerobic Blood Culture - Preliminary NO GROWTH IN 1 DAY Resulted 02/05/18 23:48 Wound Chest Gram Stain - Final Resulted 02/05/18 23:48 Wound Chest Wound Culture - Preliminary Resulted (Robyn Baldwin) Result Diagram: 02/07/1830 02/07/18 0730 Imaging Last Impressions Chest CT 02/06/18 0000 Signed Impressions: Service Date/Time: Tuesday, February 06, 2018 10:52 - CONCLUSION: External cardiac pacer/defibrillator with a single lead. The lead courses from the left midaxillary implanted unit and has a 90 bend cephalad at the level of the lower sternum and with an adjacent small apparent fluid collection. Otherwise mildly edematous/indurated soft tissues around the lead. No CT evidence of osteomyelitis. No acute abnormality demonstrated within the thoracic cavity. Brian Arrieta MD Chest X-Ray 02/05/18 0000 Signed Impressions: Service Date/Time: Monday, February 05, 2018 19:55 - CONCLUSION: 1. No active disease. Defibrillator wire overlies the left hemithorax anteriorly. Hay Day MD (Robyn Baldwin) Assessment and Plan Assessment and Plan Recurrent AICD/lead infection -No evidence of septic emboli on CT of the chest Immunocompromised with chronic prednisone use Crohn's disease Lupus Hypothyroidism RECS: Continue on vancomycin for now, continue to monitor kidney function Monitor wound cx results Follow blood cultures Follow clinical course Obtain chest ultrasound for further evaluation Obtain 2-D echocardiogram to rule out endocarditis CRP ordered Will obtain medical records from [facility] Will discuss with Dr. Gardner and Dr. Cervantes Further recommendations to follow Discussed with patient Discussed with nursing staff (Robyn Baldwin) Assessment and Plan The exam, history, and the medical decision-making described in the above note were completed with the assistance of the mid-level provider. I reviewed and agree with the findings presented. I attest that I had a [id number] encounter with the patient on the same day, and personally performed and documented my assessment and findings in the medical record. Patient seen and examined with Blake MARROQUIN. Reviewed details about pacemaker insertion, pacemaker infection history and other details. FHx of Lupus. On exam: Distal sternal open wound with no active drainage, mild surrounding edema, tender to palpation. Left lateral axillary region with tender palpable subcutaneous AICD device with tenderness to palpation. Tenderness along the course of the lead under the left breast with an area of induration noted proximal to the sternum. Left lateral upper chest surgical incision well approximated, raised, erythematous but does not appear to be grossly infected. Well healed area of previous port site on right anterior chest. Pleasant, cooperative lady. Recs: Check 2D ECHO to look for valve or lead vegetations. US chest along course of pacer device and lead. Continue Vanco IV for now. Follow cultures Follow clinically. Obtain records from [facility]. Will follow with you. (Lay Guerra MD) Robyn Baldwin Feb 07, 2018 10:20 Lay Guerra MD Feb 07, 2018 11:45
--- NOTE | 2018-02-07 12:04 | RADRPT ---
EXAM DATE/TIME: 02/07/2018 11:15 [place] COMPARISON: No previous studies available for comparison. INDICATIONS : Left chest swelling. MEDICAL HISTORY : Renal failure. Lupus. SURGICAL HISTORY : Appendectomy. Hysterectomy. Pacemaker. ENCOUNTER: Initial ACUITY: 3 weeks PAIN SCORE: 4/10 LOCATION: Left underarm. AREA EVALUATED: Under the left armpit near pacemaker incision. FINDINGS: Scanning of the left chest wall from mid axillary line through the sternum was performed. There is a heterogeneous echotexture hypoechoic oval-shaped smooth margin area in the inferior axilla which da sures 7.7 x 2.8 cm. There is a linear hyperechoic area coursing through this area which may represen t a catheter or wire. Stopped no increased flow by color Doppler stopped in the anterior chest wall can't there are few scattered areas of hypodensity measuring less than 1 cm;. No focal areas of incr eased flow with color Doppler. CONCLUSION: There is a dominant heterogeneous echotexture fluid collection in the left axilla measuring in excess of 7 cm which has a linear hyperechoic structure coursing through it. There are also some scattered smaller areas of fluid in the anterior chest wall all measuring 1 cm or less. Vic Smith MD on February 07, 2018 at 11:58 Board Certified Radiologist. This report was verified electronically.
[2018-02-07] MEDS: VANCOMYCIN INJ 1,250 MG in SODIUM CHLOR 0.9% 250 ML INJ 250 ML IV SCH (15:22)
--- NOTE | 2018-02-07 17:24 | HHI.PR ---
Addendum to Inpatient Note Addendum Reason: Additional Documentation Additional Information See BELEN Lozano note for details. Addendum at 5:24 pm Discussed the US chest wall findings with he will see patient to assess who will address these fluid collections. Lay Guerra MD Feb 07, 2018 17:24
--- NOTE | 2018-02-07 17:53 | ECHRPT ---
Indication: POSS SEPSIS, ENDOCARDITIS CONCLUSIONS Normal left ventricular size. Wall thickness is normal. EF=60% The left ventricular systolic function is grossly normal on limited imaging. The left atrial size is mildly dilated. The right atrial size is mildly dilated. Mild mitral valve regurgitation. The estimated pulmonary arterial pressure is 29.9 mmHg. There is trace tricuspid valve regurgitation. BP: / HR: Rhythm: Sinus MEASUREMENTS (Male / Female) Normal Values Technical Quality:Fair 2D ECHO LV Diastolic Diameter PLAX 5.0 cm 4.2 - 5.9 / 3.9 - 5.3 cm LV Systolic Diameter PLAX 3.2 cm IVS Diastolic Thickness 0.9 cm 0.6 - 1.0 / 0.6 - 0.9 cm LVPW Diastolic Thickness 0.9 cm 0.6 - 1.0 / 0.6 - 0.9 cm LV Relative Wall Thickness 0.4 RV Internal Dim ED PLAX 3.3 cm LVOT Diameter 2.1 cm Aortic Root Diameter 3.1 cm LA Systolic Diameter LX 3.7 cm 3.0 - 4.0 / 2.7 - 3.8 cm M-MODE AV Cusp Separation MM 2.0 cm DOPPLER AV Peak Velocity 139.0 cm/s AV Peak Gradient 7.7 mmHg AV Mean Gradient 4.0 mmHg AV Velocity Time Integral 28.6 cm LVOT Peak Velocity 96.3 cm/s LVOT Peak Gradient 3.7 mmHg LVOT Velocity Time Integral 16.6 cm AV Area Cont Eq vti 2.0 cm AV Area Cont Eq pk 2.4 cm Mitral E Point Velocity 75.0 cm/s Mitral A Point Velocity 46.4 cm/s Mitral E to A Ratio 1.6 LV E' Lateral Velocity 13.2 cm/s Mitral E to LV E' Lateral Ratio 5.7 LV E' Septal Velocity 11.5 cm/s Mitral E to LV E' Septal Ratio 6.5 TR Peak Velocity 223.0 cm/s TR Peak Gradient 19.9 mmHg Right Atrial Pressure 10.0 mmHg Pulmonary Artery Systolic Pressu 29.9 mmHg Right Ventricular Systolic Press 29.9 mmHg PV Peak Velocity 53.4 cm/s PV Peak Gradient 1.1 mmHg FINDINGS LEFT VENTRICLE Normal left ventricular size. Wall thickness is normal. The left ventricular systolic function is grossly normal on limited imaging. RIGHT VENTRICLE Normal right ventricular size and systolic function. LEFT ATRIUM The left atrial size is mildly dilated. RIGHT ATRIUM The right atrial size is mildly dilated. ATRIAL SEPTUM The interatrial septum not well visualized. AORTA The aortic root and proximal ascending aorta are not well visualized. MITRAL VALVE Structurally normal mitral valve. Mild mitral valve regurgitation. AORTIC VALVE Trileaflet aortic valve. No aortic valve stenosis or regurgitation. TRICUSPID VALVE Structurally normal tricuspid valve. The estimated pulmonary arterial pressure is 29.9 mmHg. There is trace tricuspid valve regurgitation. PULMONARY VALVE No pulmonary valve regurgitation or stenosis. VESSELS The inferior vena cava was not well visualized. PERICARDIUM No pericardial effusion. Cornelio Levy MD, FACC, FSCAI (Electronically Signed) Final Date:07 February 2018 17:52
[2018-02-07] MEDS: PANTOPRAZOLE SOD 40 MG DELAYED RELEASE TAB PO SCH (21:06)
[2018-02-08] VITALS (19 sets, daily range): BP systolic 96–110; BP diastolic 63–71; PULSE 64–87; RESP 18–19; TEMP 98.8; O2SAT 97–99
[2018-02-08] MEDS: LEVOTHYROXINE SODIUM 125 MCG TAB PO SCH (06:11)
[2018-02-08] MEDS: DIAZEPAM 10 MG TAB PO PRN ×3 (07:05→21:55)
[2018-02-08] MEDS: MORPHINE SULFATE 15 MG CONTROLLED RELEASE TAB PO PRN ×2 (07:05→14:00)
[2018-02-08 07:06] LABS: AUTOMATED NEUTROPHIL # 3.4 TH/MM3 (1.8-7.7); BASOPHIL # 0.1 TH/MM3 (0-0.2); BASOPHIL % 0.8 % (0.0-2.0); EOSINOPHIL # 0.2 TH/MM3 (0-0.4); EOSINOPHIL % 3.6 % (0.0-4.0); HEMATOCRIT 29.7 % (35.0-46.0); LYMPH % 37.3 % (9.0-44.0); LYMPHOCYTE # 2.6 TH/MM3 (1.0-4.8); MEAN CELL VOLUME 83.7 FL (80.0-100.0); MEAN CORPUSCULAR HEMOGLOBIN 28.2 PG (27.0-34.0); MEAN CORPUSCULAR HGB CONC 33.7 % (32.0-36.0); MEAN PLATELET VOLUME 7.9 FL (7.0-11.0); MONO % 8.5 % (0.0-8.0); MONOCYTE # 0.6 TH/MM3 (0-0.9); NEUT % 49.8 % (16.0-70.0); PLATELET COUNT 169 TH/MM3 (150-450); RED BLOOD COUNT 3.54 MIL/MM3 (4.00-5.30); RED CELL DISTRIBUTION WIDTH 18.7 % (11.6-17.2); WHITE BLOOD COUNT 6.9 TH/MM3 (4.0-11.0)
[2018-02-08 07:15] LABS: BICARBONATE 22.6 MEQ/L (21.0-32.0); CALCIUM 8.5 MG/DL (8.5-10.1); CREATININE 1.36 MG/DL (0.50-1.00)
[2018-02-08] MEDS: SODIUM CHLORIDE 0.9% FLUSH 10 ML FLUSH IV FLUSH SCH ×2 (09:00→21:55)
[2018-02-08] MEDS: FERROUS SULFATE 325 MG (65 MG ELEMENTAL IRON) TAB PO SCH ×2 (09:00→18:00)
[2018-02-08] MEDS: SPIRONOLACTONE 25 MG TAB PO SCH (09:00)
[2018-02-08] MEDS: MAGNESIUM OXIDE 400 MG TAB PO SCH (09:00)
[2018-02-08] MEDS: predniSONE 20 MG TAB PO SCH (09:00)
[2018-02-08] MEDS: POTASSIUM CHLORIDE 20 MEQ CONTROLLED RELEASE TAB PO SCH ×3 (09:00→18:00)
[2018-02-08] MEDS: POTASSIUM PHOSPHATE MONOBASIC 500 MG TAB PO SCH ×4 (09:30→21:54)
--- NOTE | 2018-02-08 09:35 | MB ---
cc: Tamara Cervantes MD,Lay DICK DATE: 02/07/2018 REASON FOR CONSULTATION: Possible subpectoral device infection. HISTORY OF PRESENT ILLNESS: Mrs. Hernandez is a 54-year-old female with history of syncope, Brugada syndrome and lupus with multiple hospitalizations in the past. The patient was seen a couple of months ago at a [facility] [place]. She has a possible infected device. That was removed. She was cleared by ID. A subpectoral device was inserted. The patient referred there is possible infection. She referred secretion coming out of the device. She was admitted to the emergency room. Antibiotic was initiated. I was consulted for further evaluation and management. The chart was reviewed. The patient was evaluated. ALLERGIES: FISH, CEPHALEXIN, GABAPENTIN, KETOROLAC, PENICILLIN, PROCHLORPERAZINE, PROMETHAZINE. REVIEW OF SYSTEMS: The patient referred no chest pain, no chest discomfort. No fever. No secretion coming out of the pocket at the device right now. PHYSICAL EXAMINATION: GENERAL: Alert, fully oriented. VITAL SIGNS: Blood pressure 109/69, pulse 82, respiratory rate 18. LUNGS: Ventilated. CARDIOVASCULAR: S1, S2, regular. There is a device in the left axilla area. There is a subxiphoid lesion, not fully healed. No significant secretions. ABDOMEN: Soft. No masses. LOWER EXTREMITIES: No edema. STUDY: The electrocardiogram indicates sinus rhythm. Diffuse ST changes. Some Brugada pattern, as previously described. LABORATORY DATA: Hemoglobin is 9.8, white blood cell 10.7, potassium is 3.9, creatinine 1.24. ASSESSMENT AND RECOMMENDATIONS: Mrs. Hernandez is stable. She is on vancomycin. The pocket looked okay for me. Apparently, there is a CT scan with fluid accumulation. That may be due to swelling. There is no significant secretion from the pocket. I discussed the case with Dr. Guerra before evaluating the patient. This is a subpectoral device. This is not an intravascular device. Usually, if there is a suspicion of infection, antibiotics should be continued for at least 3-4 weeks. Mrs. Hernandez travels from hospital to hospital time to time. She has other issue like Lupus. She is on also. My recommendation is no need for further exploration, antibiotics, reevaluate the patient in 4-6 weeks and from there further decision will be taken. The pocket apparently is healing very well. The subxiphoid area should be left for secondary healing. Case discussed with her. I will follow her during hospitalization if necessary. MD ALISSA Greenberg/MUNIRA , 07:06 PM , 07:59 PM
[2018-02-08] MEDS: VANCOMYCIN INJ 1,250 MG in SODIUM CHLOR 0.9% 250 ML INJ 250 ML IV SCH (12:00)
--- NOTE | 2018-02-08 12:33 | PD.CONS ---
History of Present Illness Service CT Surgery Consult Requested By Dr. Guerra Reason for Consult Possible MRSA wound infection associated with AICD Primary Care Physician Edgard Tompkins DO Diagnoses: (1) Cellulitis of chest wall (2) Brugada syndrome (3) S/P ICD (internal cardiac defibrillator) procedure History of Present Illness Patient seen and examined 42-year-old female with past medical history significant for lupus, gastroparesis, Crohn's disease, hypothyroidism, chronic kidney disease stage III , recurrent hypokalemia, anxiety, on chronic immunosuppressive and Brugada syndrome status post AICD placement October 2017 with history of previous device infection who presents to [facility] with complaints of chest pain secondary to sternal wound infection. Her director of compliance is Dr. Cervantes who placed an AICD device in October of 2017. In December 2017, she was admitted to [facility], completed 1 week of IV antibiotics followed by removal of the AICD device and had a subsequent treatment of antibiotics 1 week. She then had an AICD device reimplanted and completed 1 month of IV antibiotics. Patient is unsure but thinks that she was treated with Levaquin. She was not discharged on any oral antibiotic treatment. At that time, she was managed by infectious disease physician Dr. Gardner. She was recently admitted 01/18-01/24 for syncope, bradycardia, SHABANA, s/p dopamine drip, then heart rate stabilized and she was cleared by cardiology. At that time, she had a small wound overlying the sternum and was given Bactroban at discharge. About 2 weeks ago, she began developing left axillary pain over the site of her AICD device that radiated underneath the left breast into the mid sternum. She has had a poorly healing sore over the mid chest that began to enlarge as well as increased swelling and hardness underneath the left breast. Yesterday the sore opened up with purulent drainage. She reports chills but denies any fever or sweats. She denies any cough or shortness of breath. She denies any nausea or vomiting. States that she has chronic abdominal pain secondary to Crohn's disease and gastroparesis that is unchanged. She has a history of MRSA infection left axilla many years ago but states she's been tested multiple times for MRSA since then and is always been negative. Review of Systems Constitutional: COMPLAINS OF: Fatigue, Fever, Chills, DENIES: Diaphoretic episodes, Weight gain, Weight loss, Dizziness, Change in appetite, Night Sweats Endocrine: DENIES: Abnorml menstrual pattern, Heat/cold intolerance, Polydipsia , Polyuria, Polyphagia Eyes: DENIES: Blurred vision, Diplopia, Eye inflammation, Eye pain, Vision loss , Photosensitivity, Double Vision Ears, nose, mouth, throat: DENIES: Tinnitus, Hearing loss, Vertigo, Nasal discharge, Oral lesions, Throat pain, Hoarseness, Ear Pain, Running Nose, Epistaxis, Sinus Pain, Toothache, Odynophagia Respiratory: DENIES: Apneas, Cough, Snoring, Wheezing, Hemoptysis, Sputum production, Shortness of breath Cardiovascular: COMPLAINS OF: Chest pain, DENIES: Palpitations, Syncope, Dyspnea on Exertion, PND, Lower Extremity Edema, Orthopnea, Claudication Gastrointestinal: DENIES: Abdominal pain, Black stools, Bloody stools, Constipation, Diarrhea, Nausea, Vomiting, Difficulty Swallowing, Anorexia Genitourinary: DENIES: Abnormal vaginal bleeding, Dysmenorrhea, Dyspareunia, Sexual dysfunction, Urinary frequency, Urinary incontinence, Urgency, Hematuria , Dysuria, Nocturia, Vaginal discharge Musculoskeletal: COMPLAINS OF: Muscle aches, Stiffness, DENIES: Joint pain, Joint Swelling, Back pain, Neck pain Integumentary: DENIES: Abnormal pigmentation, Pruritus, Rash, Nail changes, Breast masses, Breast skin changes, Nipple discharge Hematologic/lymphatic: DENIES: Bruising, Lymphadenopathy Immunologic/allergic: DENIES: Eczema, Urticaria Neurologic: DENIES: Abnormal gait, Headache, Localized weakness, Paresthesias, Seizures, Speech Problems, Tremor, Poor Balance Psychiatric: DENIES: Anxiety, Confusion, Mood changes, Depression, Hallucinations, Agitation, Suicidal Ideation, Homicidal Ideation, Delusions Past Family Social History Allergies: Coded Allergies: Fish Containing Products (Unverified Allergy, Severe, SWELLING IN THROAT, SOB, 02/06/18) cephalexin (Unverified Allergy, Severe, RASH,SWELLING, 02/06/18) ketorolac (Unverified Allergy, Severe, RASH, 02/06/18) penicillin G (Unverified Allergy, Severe, RASH,SWELLING, 02/06/18) prochlorperazine (Unverified Allergy, Mild, DYSTONIC REACTION, 02/06/18) promethazine (Unverified Allergy, Mild, DYSTONIC REACTION, 02/06/18) gabapentin (Unverified Adverse Reaction, Severe, SEIZURES, 02/06/18) Past Medical History Past Medical History Brugada syndrome Recurrent hypokalemia Lupus Hypothyroidism CKD stage III Anxiety GERD Past Surgical History Pacer placement Sep 2017, removal Dec 2017, and now with replacement 3 weeks ago PEG tube placement/removal EGD/colonoscopies Appendectomy Laparotomies Cystoscopies Reported Medications Valium (Diazepam) 10 Mg Tab 10 Mg PO TID PRN Levothyroxine (Levothyroxine Sodium) 125 Mcg Tab 125 Mcg PO DAILY Prednisone 20 Mg Tab 40 Mg PO DAILY Take 40mg (2 tabs) daily x7 days, then 20mg (1 tab) daily x7 days, then 10mg (1/2 tab) daily x7days, then stop. Magnesium Oxide 400 Mg Tab 400 Mg PO DAILY Pantoprazole (Pantoprazole Sodium) 40 Mg Tab 40 Mg PO HS Potassium Chloride ER (Potassium Chloride) 20 Meq Tab 40 Meq PO TID Ferrous Sulfate 325 Mg (65 Mg Iron) Tablet 325 Mg PO BIDPC Vitamin D3 (Cholecalciferol) 10,000 Unit Cap 20,000 Units PO Q3D @ HS K-Phos (Potassium Phosphate Monobasic) 500 Mg Tab 500 Mg PO PCHS Spironolactone 25 Mg Tab 25 Mg PO DAILY Family History Mother with breast cancer Maternal females with SLE and hypothyroidism Father with no significant PMH Social History Denies any tobacco, alcohol, or illicit drug use. Active Ordered Medications Current Medications Medications (Trade) Dose Ordered Sig/Osito Route Start Time Stop Time Status Last Admin (NS Flush) 2 ml UNSCH PRN IV FLUSH 02/06/18 03:15 (NS Flush) 2 ml BID IV FLUSH 02/06/18 09:00 02/08/18 09:00 (Tylenol) 650 mg Q4H PRN PO 02/06/18 03:15 (Narcan Inj) 0.4 mg UNSCH PRN IV PUSH 02/06/18 03:15 (Ferrous Sulfate) 325 mg BIDPC PO 02/06/18 09:00 02/08/18 09:00 (Synthroid) 125 mcg DAILY@0700 PO 02/06/18 07:00 02/08/18 06:11 (Mag-Ox) 400 mg DAILY PO 02/06/18 09:00 02/08/18 09:00 (Protonix) 40 mg HS PO 02/06/18 21:00 02/07/18 21:06 (KCl) 40 meq TID PO 02/06/18 09:00 02/08/18 12:15 (K-Phos) 500 mg PCHS PO 02/06/18 09:30 02/08/18 12:15 (Aldactone) 25 mg DAILY PO 02/06/18 09:00 02/08/18 09:00 (Valium) 10 mg TID PRN PO 02/06/18 12:00 02/08/18 12:15 (Deltasone) 40 mg DAILY PO 02/07/18 09:00 02/08/18 09:00 (Oramorph Sr) 15 mg Q8HR PRN PO 02/06/18 12:30 02/08/18 07:05 Pharmacy Profile Note 0 ml @ 0 mls/hr UNSCH OTHER 02/07/18 07:30 Vancomycin HCl 1250 mg/Sodium Chloride 262.5 ml @ 250 mls/hr Q24H IV 02/07/18 12:00 02/08/18 12:00 Physical Exam Vital Signs Vital Signs Date Time Temp Pulse Resp B/P (MAP) Pulse Ox O2 Delivery O2 Flow Rate FiO2 02/08/18 05:07 87 02/08/18 04:06 84 02/08/18 03:42 98.8 78 19 96/64 (75) 97 02/08/18 03:00 64 02/08/18 02:17 68 02/08/18 01:00 68 02/08/18 00:00 72 02/08/18 00:00 18 02/07/18 23:08 98.5 83 18 100/63 (75) 99 02/07/18 23:00 79 02/07/18 22:00 91 02/07/18 21:41 80 02/07/18 20:03 98.9 83 20 110/71 (84) 98 02/07/18 20:00 86 02/07/18 19:00 82 02/07/18 17:00 86 02/07/18 16:00 84 02/07/18 15:30 82 18 109/69 (82) 100 02/07/18 15:00 95 02/07/18 14:00 80 02/07/18 13:00 76 02/07/18 12:45 98.0 72 16 123/76 (92) 98 Physical Exam GENERAL: This is a well-nourished, well-developed patient, in no apparent distress. SKIN: There is mild tenderness and fluctuance over the generator pocket. There is a small opening associated with her chest incision draining a small amount of turbid yellow fluid. Cool and dry. HEAD: Atraumatic. Normocephalic. No temporal or scalp tenderness. EYES: Pupils equal round and reactive. Extraocular motions intact. No scleral icterus. No injection or drainage. ENT: Nose without bleeding, purulent drainage or septal hematoma. Throat without erythema, tonsillar hypertrophy or exudate. Uvula midline. Airway patent. NECK: Trachea midline. No JVD or lymphadenopathy. Supple, nontender, no meningeal signs. CARDIOVASCULAR: Regular rate and rhythm without murmurs, gallops, or rubs. RESPIRATORY: Clear to auscultation. Breath sounds equal bilaterally. No wheezes , rales, or rhonchi. GASTROINTESTINAL: Abdomen soft, non-tender, nondistended. No hepato-splenomegaly , or palpable masses. No guarding. MUSCULOSKELETAL: Extremities without clubbing, cyanosis, or edema. No joint tenderness, effusion, or edema noted. No calf tenderness. Negative Homans sign bilaterally. NEUROLOGICAL: Awake and alert. Cranial nerves II through XII intact. Motor and sensory grossly within normal limits. Five out of 5 muscle strength in all muscle groups. Normal speech. Laboratory Laboratory Tests Test 02/08/18 05:00 02/08/18 05:09 Blood Urea Nitrogen 23 Creatinine 1.36 Random Glucose 99 Calcium Level 8.5 Sodium Level 143 Potassium Level 3.5 Chloride Level 110 Carbon Dioxide Level 22.6 Anion Gap 10 Estimat Glomerular Filtration Rate 43 White Blood Count 6.9 Red Blood Count 3.54 Hemoglobin 10.0 Hematocrit 29.7 Mean Corpuscular Volume 83.7 Mean Corpuscular Hemoglobin 28.2 Mean Corpuscular Hemoglobin Concent 33.7 Red Cell Distribution Width 18.7 Platelet Count 169 Mean Platelet Volume 7.9 Neutrophils (%) (Auto) 49.8 Lymphocytes (%) (Auto) 37.3 Monocytes (%) (Auto) 8.5 Eosinophils (%) (Auto) 3.6 Basophils (%) (Auto) 0.8 Neutrophils # (Auto) 3.4 Lymphocytes # (Auto) 2.6 Monocytes # (Auto) 0.6 Eosinophils # (Auto) 0.2 Basophils # (Auto) 0.1 CBC Comment DIFF FINAL Differential Comment Date/Time Source Procedure Growth Status 02/05/18 23:48 Blood Peripheral Aerobic Blood Culture - Preliminary NO GROWTH IN 3 DAYS Resulted 02/05/18 23:48 Blood Peripheral Anaerobic Blood Culture - Preliminary NO GROWTH IN 3 DAYS Resulted 02/05/18 23:48 Wound Chest Gram Stain - Final Resulted 02/05/18 23:48 Wound Culture - Preliminary Staphylococcus Aureus Resulted Result Diagram: 02/08/18 0509 02/08/18 0500 Imaging Last Impressions Soft Tissue Ultrasound 02/07/18 0000 Signed Impressions: Service Date/Time: Wednesday, February 07, 2018 11:15 - CONCLUSION: There is a dominant heterogeneous echotexture fluid collection in the left axilla measuring in excess of 7 cm which has a linear hyperechoic structure coursing through it. There are also some scattered smaller areas of fluid in the anterior chest wall all measuring 1 cm or less. Vic Smith MD Chest CT 02/06/18 0000 Signed Impressions: Service Date/Time: Tuesday, February 06, 2018 10:52 - CONCLUSION: External cardiac pacer/defibrillator with a single lead. The lead courses from the left midaxillary implanted unit and has a 90 bend cephalad at the level of the lower sternum and with an adjacent small apparent fluid collection. Otherwise mildly edematous/indurated soft tissues around the lead. No CT evidence of osteomyelitis. No acute abnormality demonstrated within the thoracic cavity. Brian Arrieta MD Chest X-Ray 02/05/18 0000 Signed Impressions: Service Date/Time: Monday, February 05, 2018 19:55 - CONCLUSION: 1. No active disease. Defibrillator wire overlies the left hemithorax anteriorly. Hay Day MD Course She is stable and only c/o wound drainage from the midline chest incision. Assessment and Plan Problem List: (1) Brugada syndrome ICD Codes: I49.8 - Other specified cardiac arrhythmias Status: Chronic (2) S/P ICD (internal cardiac defibrillator) procedure ICD Codes: Z95.810 - Presence of automatic (implantable) cardiac defibrillator Status: Chronic (3) Cellulitis of chest wall ICD Codes: L03.313 - Cellulitis of chest wall Status: Acute Assessment and Plan She has a positive wound culture for MRSA. I discussed her with Dr. Cervantes, and he does not want the hardware removed at this time. Recommend continued IV antibiotics and ultrasound guided drainage of larger fluid collection for culture If the device is infected, I doubt it will be adequately treated without device removal.. Ирина Goyal MD Feb 08, 2018 12:33
--- NOTE | 2018-02-08 12:56 | HHI.PR ---
Subjective Remarks 42-year-old female with history of lupus, Brugada syndrome, pacemaker/ defibrillator, hypothyroidism, CKD stage III, presents with concern for sternal wound infection and constant chest pain. The patient has history of syncope with Brugada syndrome, s/p pacer/AICD placement in , subsequently removed due to infection/bacteremia, now s/p replacement 3 weeks ago. She was also recently admitted 01/18-01/24 for syncope, bradycardia, SHABANA, s/p dopamine drip, then heart rate stabilized and she was cleared by cardiology. She was also discharged on bactroban ointment to apply to sternal wound which she has been compliant. She now returns to the ED with chest pain located throughout the left lower anterior chest that radiates around the left lateral thorax that began 2 weeks ago; described as constant burning pain, "feels like fire", worse with any movement. She reports chills, and a fever of 104 a few days ago, but she has been taking tylenol and ibuprofen and no recurrent fevers. Yesterday on February 05, she woke up and her sternal wound and left lateral chest was severely edematous. She rolled over to her side and the wound "opened up" with purulent drainage. She reports intermittent nausea and occasional vomiting over the past few weeks. She does report some lightheadedness, worse upon standing. Denies any shortness of breath. Her milk collector is Dr. Calle. She has no other medical complaints to report at this time. 4-4 Follow up for suspected AICD infection, possible abscess. The patient reports continued bloody and purulent drainage from the distal sternal wound. She states it feels as though the fluid is coming from her AICD pocket and under the left breast. She reports continued pain and edema around the AICD at the left axillary region and under the left breast to the center of her chest. Denies fevers but does report chills overnight. Requesting regular diet. Denies any other medical complaints including lightheadedness, dizziness, shortness of breath, abdominal pain, nausea/vomiting, or diarrhea. 4-[address] CALLE, [facility], SEEN BY ID CONTINUED ON VANCO WANTS HER PAIN MEDICATIONS ADJUSTED Objective Vitals Vital Signs Date Time Temp Pulse Resp B/P (MAP) Pulse Ox O2 Delivery O2 Flow Rate FiO2 02/08/18 05:07 87 02/08/18 04:06 84 02/08/18 03:42 98.8 78 19 96/64 (75) 97 02/08/18 03:00 64 02/08/18 02:17 68 02/08/18 01:00 68 02/08/18 00:00 72 02/08/18 00:00 18 02/07/18 23:08 98.5 83 18 100/63 (75) 99 02/07/18 23:00 79 02/07/18 22:00 91 02/07/18 21:41 80 02/07/18 20:03 98.9 83 20 110/71 (84) 98 02/07/18 20:00 86 02/07/18 19:00 82 02/07/18 17:00 86 02/07/18 16:00 84 02/07/18 15:30 82 18 109/69 (82) 100 02/07/18 15:00 95 02/07/18 14:00 80 02/07/18 13:00 76 02/07/18 12:45 98.0 72 16 123/76 (92) 98 I/O 02/07/18 02/07/18 02/07/18 02/08/18 02/08/18 02/08/18 07:00 15:00 23:00 07:00 15:00 23:00 Intake Total 840 ml Balance 840 ml Intake Oral 840 ml # Voids 1 3 Result Diagram: 02/08/18 0509 02/08/18 0500 Other Results Laboratory Tests Test 02/05/18 21:42 02/06/18 09:21 02/07/18 07:30 02/08/18 05:00 White Blood Count 6.9 TH/MM3 8.1 TH/MM3 10.7 TH/MM3 Red Blood Count 4.15 MIL/MM3 3.87 MIL/MM3 3.52 MIL/MM3 Hemoglobin 11.4 GM/DL 10.6 GM/DL 9.8 GM/DL Hematocrit 34.0 % 32.1 % 29.9 % Mean Corpuscular Volume 82.0 FL 82.9 FL 84.8 FL Mean Corpuscular Hemoglobin 27.4 PG 27.4 PG 27.8 PG Mean Corpuscular Hemoglobin Concent 33.4 % 33.0 % 32.8 % Red Cell Distribution Width 19.1 % 19.0 % 18.7 % Platelet Count 184 TH/MM3 171 TH/MM3 172 TH/MM3 Mean Platelet Volume 6.8 FL 7.2 FL 7.4 FL Neutrophils (%) (Auto) 73.6 % 64.5 % 75.0 % Lymphocytes (%) (Auto) 16.0 % 22.9 % 11.6 % Monocytes (%) (Auto) 7.9 % 9.2 % 12.4 % Eosinophils (%) (Auto) 1.7 % 2.5 % 0.6 % Basophils (%) (Auto) 0.8 % 0.9 % 0.4 % Neutrophils # (Auto) 5.1 TH/MM3 5.2 TH/MM3 8.0 TH/MM3 Lymphocytes # (Auto) 1.1 TH/MM3 1.9 TH/MM3 1.2 TH/MM3 Monocytes # (Auto) 0.5 TH/MM3 0.7 TH/MM3 1.3 TH/MM3 Eosinophils # (Auto) 0.1 TH/MM3 0.2 TH/MM3 0.1 TH/MM3 Basophils # (Auto) 0.1 TH/MM3 0.1 TH/MM3 0.0 TH/MM3 CBC Comment DIFF FINAL DIFF FINAL DIFF FINAL Differential Comment Prothrombin Time 10.1 SEC Prothromb Time International Ratio 1.0 RATIO Activated Partial Thromboplast Time 27.3 SEC Blood Urea Nitrogen 32 MG/DL 31 MG/DL 24 MG/DL 23 MG/DL Creatinine 1.99 MG/DL 1.62 MG/DL 1.24 MG/DL 1.36 MG/DL Random Glucose 101 MG/DL 99 MG/DL 109 MG/DL 99 MG/DL Total Protein 7.7 GM/DL Albumin 3.6 GM/DL Calcium Level 9.3 MG/DL 8.8 MG/DL 8.7 MG/DL 8.5 MG/DL Alkaline Phosphatase 88 U/L Aspartate Amino Transf (AST/SGOT) 21 U/L Alanine Aminotransferase (ALT/SGPT) 49 U/L Total Bilirubin 0.3 MG/DL Sodium Level 142 MEQ/L 141 MEQ/L 146 MEQ/L 143 MEQ/L Potassium Level 3.1 MEQ/L 3.0 MEQ/L 3.9 MEQ/L 3.5 MEQ/L Chloride Level 104 MEQ/L 108 MEQ/L 113 MEQ/L 110 MEQ/L Carbon Dioxide Level 27.8 MEQ/L 24.5 MEQ/L 26.6 MEQ/L 22.6 MEQ/L Anion Gap 10 MEQ/L 9 MEQ/L 6 MEQ/L 10 MEQ/L Estimat Glomerular Filtration Rate 28 ML/MIN 35 ML/MIN 48 ML/MIN 43 ML/MIN Lactic Acid Level 0.5 mmol/L C-Reactive Protein 1.40 MG/DL Random Vancomycin Level 6.8 COMMENT Test 02/08/18 05:09 White Blood Count 6.9 TH/MM3 Red Blood Count 3.54 MIL/MM3 Hemoglobin 10.0 GM/DL Hematocrit 29.7 % Mean Corpuscular Volume 83.7 FL Mean Corpuscular Hemoglobin 28.2 PG Mean Corpuscular Hemoglobin Concent 33.7 % Red Cell Distribution Width 18.7 % Platelet Count 169 TH/MM3 Mean Platelet Volume 7.9 FL Neutrophils (%) (Auto) 49.8 % Lymphocytes (%) (Auto) 37.3 % Monocytes (%) (Auto) 8.5 % Eosinophils (%) (Auto) 3.6 % Basophils (%) (Auto) 0.8 % Neutrophils # (Auto) 3.4 TH/MM3 Lymphocytes # (Auto) 2.6 TH/MM3 Monocytes # (Auto) 0.6 TH/MM3 Eosinophils # (Auto) 0.2 TH/MM3 Basophils # (Auto) 0.1 TH/MM3 CBC Comment DIFF FINAL Differential Comment Imaging Last Impressions Soft Tissue Ultrasound 02/07/18 0000 Signed Impressions: Service Date/Time: Wednesday, February 07, 2018 11:15 - CONCLUSION: There is a dominant heterogeneous echotexture fluid collection in the left axilla measuring in excess of 7 cm which has a linear hyperechoic structure coursing through it. There are also some scattered smaller areas of fluid in the anterior chest wall all measuring 1 cm or less. Vic Smith MD Chest CT 02/06/18 0000 Signed Impressions: Service Date/Time: Tuesday, February 06, 2018 10:52 - CONCLUSION: External cardiac pacer/defibrillator with a single lead. The lead courses from the left midaxillary implanted unit and has a 90 bend cephalad at the level of the lower sternum and with an adjacent small apparent fluid collection. Otherwise mildly edematous/indurated soft tissues around the lead. No CT evidence of osteomyelitis. No acute abnormality demonstrated within the thoracic cavity. Brian Arrieta MD Chest X-Ray 02/05/18 0000 Signed Impressions: Service Date/Time: Monday, February 05, 2018 19:55 - CONCLUSION: 1. No active disease. Defibrillator wire overlies the left hemithorax anteriorly. Hay Day MD Objective Remarks GENERAL: Well-nourished, well-developed middle aged female patient in [facility]. SKIN: Warm and dry. 2cm distal sternal open wound with purulent drainage, surrounding edema, tender to palpation. Left lateral axillary region with palpable subcutaneous AICD with surrounding edema, TTP, no open wounds/ drainage. HEENT: Normocephalic. Atraumatic. Pupils equal and round. Mucous membranes pink and moist. CARDIOVASCULAR: Regular rate and rhythm. No murmur appreciated. RESPIRATORY: No accessory muscle use. Clear to auscultation. Breath sounds equal bilaterally. GASTROINTESTINAL: Abdomen soft, non-tender, nondistended. Normoactive bowel sounds x4. MUSCULOSKELETAL: No obvious deformities. Extremities without clubbing, cyanosis , or edema. NEUROLOGICAL: Awake and alert. No obvious cranial nerve deficits. Motor grossly within normal limits. Normal speech. PSYCHIATRIC: Appropriate mood and affect; insight and judgment normal. Medications and IVs Current Medications Vancomycin HCl 1000 mg/Sodium Chloride 250 ml @ 250 mls/hr ONCE ONCE IV Last administered on 02/06/18at 00:16; Start 02/05/18 at 23:15; Stop 02/06/18 at 00:14; Status DC Potassium Chloride (KCl) 40 meq ONCE ONCE PO Last administered on 02/06/18at 00: 15; Start 02/05/18 at 23:15; Stop 02/05/18 at 23:18; Status DC Morphine Sulfate (Morphine Inj) 2 mg ONCE ONCE IV PUSH Last administered on 02/06/18at 01:31; Start 02/06/18 at 01:30; Stop 02/06/18 at 01:31; Status DC Ondansetron HCl (Zofran Inj) 4 mg ONCE ONCE IV PUSH Last administered on at 01:31; Start 02/06/18 at 01:30; Stop 02/06/18 at 01:31; Status DC Pharmacy Profile Note 0 ml @ 0 mls/hr UNSCH OTHER ; Start 02/06/18 at 03:15; Stop 02/06/18 at 10:04; Status DC Sodium Chloride (NS Flush) 2 ml UNSCH PRN IV FLUSH FLUSH AFTER USING IV ACCESS ; Start 02/06/18 at 03:15 Sodium Chloride (NS Flush) 2 ml BID IV FLUSH Last administered on 02/08/18at 09: 00; Start 02/06/18 at 09:00 Acetaminophen (Tylenol) 650 mg Q4H PRN PO headache/fever/pain1-2; Start at 03:15 Naloxone HCl (Narcan Inj) 0.4 mg UNSCH PRN IV PUSH SEE LABEL COMMENTS; Start at 03:15 Prednisone (Deltasone) 10 mg DAILY PO Last administered on 02/06/18at 08:07; Start 02/06/18 at 09:00; Stop 02/06/18 at 10:04; Status DC Ferrous Sulfate (Ferrous Sulfate) 325 mg BIDPC PO Last administered on 09:00; Start 02/06/18 at 09:00 Levothyroxine Sodium (Synthroid) 125 mcg DAILY@0700 PO Last administered on 02/08 06:11; Start 02/06/18 at 07:00 Magnesium Oxide (Mag-Ox) 400 mg DAILY PO Last administered on 02/08/18 09:00; Start 02/06/18 at 09:00 Pantoprazole Sodium (Protonix) 40 mg HS PO Last administered on 02/07/18at 21:06 ; Start 02/06/18 at 21:00 Potassium Chloride (KCl) 40 meq TID PO Last administered on 02/08/18 12:15; Start 02/06/18 at 09:00 Potassium Phosphate (K-Phos) 500 mg PCHS PO Last administered on 02/08/18 12:15 ; Start 02/06/18 at 09:30 Spironolactone (Aldactone) 25 mg DAILY PO Last administered on 02/08/18 09:00; Start 02/06/18 at 09:00 Lorazepam (Ativan Inj) 1 mg ONCE ONCE IV PUSH Last administered on 02/06/18at 07 :40; Start 02/06/18 at 08:00; Stop 02/06/18 at 08:01; Status DC Vancomycin HCl 500 mg/Sodium Chloride 100 ml @ 200 mls/hr ONCE ONCE IV Last administered on 02/06/18 09:36; Start 02/06/18 at 10:00; Stop 02/06/18 at 10:29; Status DC Diazepam (Valium) 10 mg TID PRN PO muscle spasm Last administered on 02/08/18 12:15; Start 02/06/18 at 12:00 Prednisone (Deltasone) 40 mg DAILY PO Last administered on 02/08/18 09:00; Start 02/07/18 at 09:00 Morphine Sulfate (Oramorph Sr) 15 mg Q8HR PRN PO pain 3-10 Last administered on 02/08/18 07:05; Start 02/06/18 at 12:30 Sodium Chloride 1,000 ml @ 84 mls/hr [id number] IV Last administered on 02/06/18 12:51; Start 02/06/18 at 12:00; Stop 02/06/18 at 23:54; Status DC Iodixanol (VISIPAQUE 320 INJ (Rad CT)) 50 ml STK-MED ONCE IVCONTRAST Last administered on 02/06/18at 11:13; Start 02/06/18 at 11:13; Stop 02/06/18 at 11:14; Status DC Prednisone (Deltasone) 30 mg ONCE ONCE PO Last administered on 02/06/18at 12:49 ; Start 02/06/18 at 13:00; Stop 02/06/18 at 13:01; Status DC Pharmacy Profile Note 0 ml @ 0 mls/hr UNSCH OTHER ; Start 02/07/18 at 07:30 Vancomycin HCl 1250 mg/Sodium Chloride 262.5 ml @ 250 mls/hr Q24H IV Last administered on 02/08/18at 12:00; Start 02/07/18 at 12:00 Miscellaneous Information SPECIFIC LAB TO BE DRAWN:VANCO TROUGH DATE... ONCE ONCE .XX ; Start 02/10/18 at 11:45; Stop 02/10/18 at 11:46 A/P Problem List: (1) Cellulitis of chest wall ICD Code: L03.313 - Cellulitis of chest wall Status: Acute (2) SHABANA (acute kidney injury) ICD Code: N17.9 - Acute kidney failure, unspecified Assessment and Plan 42-year-old female with history of lupus, Brugada syndrome, pacemaker/ defibrillator, hypothyroidism, CKD stage III, presents with concern for sternal wound infection and constant chest pain. Recurrent AICD Infection with Sternal Wound Cellulitis: afebrile, no leukocytosis, however +tachycardia and wound with purulent drainage. CXR reviewed and unremarkable. Need to rule out abscess vs recurrent bacteremia. -Chest CT reviewed, shows external cardiac pacer/defibrillator with a single lead that courses from the left midaxillary implanted unit and has a 90deg bend cephalad at the level of the lower sternum and with an adjacent small apparent fluid collection. Otherwise mildly edematous/indurated soft tissues around the lead. No CT evidence of osteomyelitis. No acute abnormality demonstrated within the thoracic cavity. -Wound and Blood cultures collected and pending -Continue antibiotics with IV Vanco, pharmacy consulted -Tylenol prn fever, continue patient's Oramorph prn pain MORPHINE IV FOR BREAKTHRU PAIN -Consult patient's milk collector Dr. Calle, likely needs AICD removal -Consult ID, discussed with Dr. Guerra, appreciate recommendations -Obtain records from previous hospitalization at , including ID Dr. Gardner notes, echo, imaging, cultures, etc. -Chest U/S and Echocardiogram ordered -Admit to inpatient and transfer to [facility] per Dr. Guerra SEEN BY [facility] AND DR CALLE Atypical Chest Pain: suspect secondary to infection, pain reproducible with palpation and movement -Continue patient's Oramorph 15mg q8h prn pain -monitor on telemetry Brugada Syndrome: s/p pacer/AICD -monitor on telemetry -cardiology consulted as above SHABANA on CKD stage III: suspect secondary to dehydration. Cr 1.99, previously 1.24 on 01/24/18. -give IVF hydration -monitor BMP, improving with Cr 1.24 -avoid nephrotoxins Hypokalemia: patient with chronic history of hypokalemia, on KCl 40meq tid at home. K 3.1 upon arrival -continue patient's potassium replacement -monitor BMP, give additional replacement as needed Lupus: chronic -continue patient's prednisone 40mg daily -continue pain control with patient's Oramorph 15mg q8h prn Anxiety: chronic -continue patient's valium 10mg tid prn Hypothyroidism: chronic -continue patient's Synthroid 125mcg daily CHRONIC PAIN - CONTINUE PAIN CONTROL DVT Prophylaxis: mariano/SCDs; avoid chemoprophylaxis incase surgical intervention is indicated Discharge Planning PENDING ID AND [facility] AND DR CALLE CLEARANCE Nathaneil Sun DO Feb 08, 2018 12:56
[2018-02-08] MEDS ORDERED: NALOXONE HCL 0.4 MG/ML AMP IV PUSH PRN (13:00)
[2018-02-08] MEDS: MORPHINE SULFATE 4 MG/ML INJ IV PUSH PRN ×3 (14:30→21:57)
--- NOTE | 2018-02-08 17:57 | HHI.IDPN ---
Subjective Subjective Remarks Patient seen and examined with Dr. Guerra 42-year-old female with past medical history significant for lupus, gastroparesis, Crohn's disease, hypothyroidism, chronic kidney disease stage III , recurrent hypokalemia, anxiety, on chronic immunosuppressive and Brugada syndrome status post AICD placement October 2017 with history of previous device infection who presents to [facility] with complaints of chest pain secondary to sternal wound infection. 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 Cervantes who placed an AICD device in October of 2017. Patient states she started to feel unwell the end of November. In December 2017, she was admitted to [facility], completed 1 week of IV antibiotics followed by removal of the AICD device and had a subsequent treatment of antibiotics 1 week. She then had an AICD device reimplanted and completed 1 month of IV antibiotics. Patient is unsure but thinks that she was treated with Levaquin. She was not discharged on any oral antibiotic treatment. At that time, she was managed by infectious disease physician Dr. Gardner. She was recently admitted 01/18-01/24 for syncope, bradycardia, SHABANA, s/p dopamine drip, then heart rate stabilized and she was cleared by cardiology. At that time, she had a small wound overlying the sternum and was given Bactroban at discharge. About 2 weeks ago, she began developing left axillary pain over the site of her AICD device that radiated underneath the left breast into the mid sternum. She has had a poorly healing sore over the mid chest that began to enlarge as well as increased swelling and hardness underneath the left breast. Yesterday the sore opened up with purulent drainage. She reports chills but denies any fever or sweats. She denies any cough or shortness of breath. She denies any nausea or vomiting. States that she has chronic abdominal pain secondary to Crohn's disease and gastroparesis that is unchanged. She has a history of MRSA infection left axilla many years ago but states she's been tested multiple times for MRSA since then and is always been negative. She is not sure of what her cultures were that she grew when admitted at [facility] in December with infection of the AICD device but is certain it was not MRSA. Infectious disease has been consulted for evaluation and management of recurrent AICD device infection. Notes reviewed Patient states she continues to be weak. Pain is manageable by medications. Left breast pain. Reports drainage on previous external pacer site. Reports left breast area and towards the left lateral area with hardening, presence of mass/lesion? Denies fevers, chills Denies nausea, vomiting, diarrhea. Denies dysuria. No leukocytosis, WBC 6.9 Antibiotics Vancomycin IV Lines Peripheral lines Past Medical History Brugada syndrome Crohn's disease Lupus Recurrent hypokalemia Hypothyroidism Chronic kidney disease stage III Anxiety GERD Endometriosis AICD placement Oct 2017 with subsequent removal December 2017 and replacement approximately 3 weeks ago. PEG tube placement/removal Port placement and subsequent removal EGD/colonoscopies Appendectomy Laparotomies Ectopic Cystoscopie (Kendall Bradshaw) Allergies: Coded Allergies: Fish Containing Products (Unverified Allergy, Severe, SWELLING IN THROAT, SOB, 02/06/18) cephalexin (Unverified Allergy, Severe, RASH,SWELLING, 02/06/18) ketorolac (Unverified Allergy, Severe, RASH, 02/06/18) penicillin G (Unverified Allergy, Severe, RASH,SWELLING, 02/06/18) prochlorperazine (Unverified Allergy, Mild, DYSTONIC REACTION, 02/06/18) promethazine (Unverified Allergy, Mild, DYSTONIC REACTION, 02/06/18) gabapentin (Unverified Adverse Reaction, Severe, SEIZURES, 02/06/18) Objective . Vital Signs Date Time Temp Pulse Resp B/P (MAP) Pulse Ox O2 Delivery O2 Flow Rate FiO2 02/08/18 16:00 70 02/08/18 15:00 98.8 78 19 96/64 (75) 97 02/08/18 15:00 87 02/08/18 14:00 84 02/08/18 13:00 84 02/08/18 05:07 87 02/08/18 04:06 84 02/08/18 03:42 98.8 78 19 96/64 (75) 97 02/08/18 03:00 64 02/08/18 02:17 68 02/08/18 01:00 68 02/08/18 00:00 72 02/08/18 00:00 18 02/07/18 23:08 98.5 83 18 100/63 (75) 99 02/07/18 23:00 79 02/07/18 22:00 91 02/07/18 21:41 80 02/07/18 20:03 98.9 83 20 110/71 (84) 98 02/07/18 20:00 86 02/07/18 19:00 82 . Laboratory Tests Test 02/07/18 07:30 02/08/18 05:09 White Blood Count 10.7 TH/MM3 6.9 TH/MM3 Red Blood Count 3.52 MIL/MM3 3.54 MIL/MM3 Hemoglobin 9.8 GM/DL 10.0 GM/DL Hematocrit 29.9 % 29.7 % Mean Corpuscular Volume 84.8 FL 83.7 FL Mean Corpuscular Hemoglobin 27.8 PG 28.2 PG Mean Corpuscular Hemoglobin Concent 32.8 % 33.7 % Red Cell Distribution Width 18.7 % 18.7 % Platelet Count 172 TH/MM3 169 TH/MM3 Mean Platelet Volume 7.4 FL 7.9 FL Neutrophils (%) (Auto) 75.0 % 49.8 % Lymphocytes (%) (Auto) 11.6 % 37.3 % Monocytes (%) (Auto) 12.4 % 8.5 % Eosinophils (%) (Auto) 0.6 % 3.6 % Basophils (%) (Auto) 0.4 % 0.8 % Neutrophils # (Auto) 8.0 TH/MM3 3.4 TH/MM3 Lymphocytes # (Auto) 1.2 TH/MM3 2.6 TH/MM3 Monocytes # (Auto) 1.3 TH/MM3 0.6 TH/MM3 Eosinophils # (Auto) 0.1 TH/MM3 0.2 TH/MM3 Basophils # (Auto) 0.0 TH/MM3 0.1 TH/MM3 CBC Comment DIFF FINAL DIFF FINAL Differential Comment Laboratory Tests Test 02/07/18 07:30 02/08/18 05:00 Blood Urea Nitrogen 24 MG/DL 23 MG/DL Creatinine 1.24 MG/DL 1.36 MG/DL Random Glucose 109 MG/DL 99 MG/DL Calcium Level 8.7 MG/DL 8.5 MG/DL Sodium Level 146 MEQ/L 143 MEQ/L Potassium Level 3.9 MEQ/L 3.5 MEQ/L Chloride Level 113 MEQ/L 110 MEQ/L Carbon Dioxide Level 26.6 MEQ/L 22.6 MEQ/L Anion Gap 6 MEQ/L 10 MEQ/L Estimat Glomerular Filtration Rate 48 ML/MIN 43 ML/MIN C-Reactive Protein 1.40 MG/DL Microbiology Date/Time Source Procedure Growth Status 02/05/18 23:48 Blood Peripheral Aerobic Blood Culture - Preliminary NO GROWTH IN 3 DAYS Resulted 02/05/18 23:48 Blood Peripheral Anaerobic Blood Culture - Preliminary NO GROWTH IN 3 DAYS Resulted 02/05/18 23:40 Blood Peripheral Aerobic Blood Culture - Preliminary NO GROWTH IN 3 DAYS Resulted 02/05/18 23:40 Blood Peripheral Anaerobic Blood Culture - Preliminary NO GROWTH IN 3 DAYS Resulted 02/05/18 23:48 Wound Chest Gram Stain - Final Resulted 02/05/18 23:48 Wound Culture - Preliminary Staphylococcus Aureus Resulted Imaging Last Impressions Soft Tissue Ultrasound 02/07/18 0000 Signed Impressions: Service Date/Time: Wednesday, February 07, 2018 11:15 - CONCLUSION: There is a dominant heterogeneous echotexture fluid collection in the left axilla measuring in excess of 7 cm which has a linear hyperechoic structure coursing through it. There are also some scattered smaller areas of fluid in the anterior chest wall all measuring 1 cm or less. Vic Smith MD Chest CT 02/06/18 Signed Impressions: Service Date/Time: Tuesday, February 06, 2018 10:52 - CONCLUSION: External cardiac pacer/defibrillator with a single lead. The lead courses from the left midaxillary implanted unit and has a 90 bend cephalad at the level of the lower sternum and with an adjacent small apparent fluid collection. Otherwise mildly edematous/indurated soft tissues around the lead. No CT evidence of osteomyelitis. No acute abnormality demonstrated within the thoracic cavity. Brian Arrieta MD Chest X-Ray 02/05/18 Signed Impressions: Service Date/Time: Monday, February 05, 2018 19:55 - CONCLUSION: 1. No active disease. Defibrillator wire overlies the left hemithorax anteriorly. Hay Day MD Physical Exam GENERAL: This is a well-nourished, well-developed patient, in no apparent distress. SKIN: Warm and dry. Erythema over fourth digit of the left foot, chronic. HEENT: Normocephalic. Pupils equal round and reactive. Nose without bleeding. Airway patent. NECK: Trachea midline. No JVD. Supple. CARDIOVASCULAR: Regular rate and rhythm without murmurs, gallops, or rubs. CHEST: (+)2cm distal sternal open wound with active drainage when left breast is palpated, mild surrounding edema, tender to palpation. Left lateral axillary region with tender palpable subcutaneous AICD device with mild edema and tenderness to palpation. Tenderness along the course of the lead under the left breast with an area of induration noted proximal to the sternum. Left lateral upper chest surgical incision well approximated, raised, erythematous but does not appear to be infected. Well healed area of previous port site on right anterior chest. RESPIRATORY: Clear to auscultation. Breath sounds equal bilaterally. No wheezes , rales, or rhonchi. GASTROINTESTINAL: Abdomen soft, non-tender, nondistended. Bowel Sounds normoactive x4. MUSCULOSKELETAL: Extremities without clubbing, cyanosis, or edema. NEUROLOGICAL: Awake and alert. Oriented to time, place, person. No focal neuro deficit. Moves all extremities. Normal speech. (Kendall Bradshaw) Assessment & Plan Remarks Assessment and Plan Recurrent AICD/lead infection -No evidence of septic emboli on CT of the chest -Chest CT showed external cardiac pacer/defibrillator with a single lead. Courses from the left mid axillary unit and has 96, at the level of the lower external an adjacent small apparent fluid collection. Otherwise the edematous/ soft tissue around. Evidence of osteomyelitis. No acute abdomen demonstrated within the thoracic -Drainage tracking when breast is palpated towards the midsternal incision site -Echocardiogram showed EF 60%, left ventricular systolic function grossly normal, left atrial size mildly dilated, atrial size mildly dilated, mild MVR. Trace TVR. Structurally normal tricuspid valve and mitral valve. -Patient was diagnosed with bacterial [facility] it was treated with ceftriaxone and switch over to vancomycin for enterococcal bacteremia. Patient grew strep and enterococcus faecalis. -Blood cultures no growth to date -Preliminary wound culture staph aureus Immunocompromised with chronic prednisone use Crohn's disease Lupus Hypothyroidism RECS: Continue on vancomycin for now, continue to monitor kidney function Wound culture resent from midsternal site, follow-up results Follow blood cultures CRP 1.[address] Cervantes, AICD may need to be taken out Will Clinically follow patient progress Further recommendations to follow (eKndall Bradshaw) Remarks The exam, history, and the medical decision-making described in the above note were completed with the assistance of the mid-level provider. I reviewed and agree with the findings presented. I attest that I had a [id number] encounter with the patient on the same day, and personally performed and documented my assessment and findings in the medical record. Purulent material could be expressed from the xiphisternal area opening upon milking the area below breast and the pacer site area. Swab obtained again as this was true purulence noted. Will jeanna [facility] and Patient agreeable to surgery needed to address this. Reviewed her medical records at [facility] patient had huang sensitive enterococcal bacteremia and pacer removed. AICD placed after 1 week of IV antibiotics. saw patient then and treated with IV vanco for few weeks total Continue Vanco IV(target 15-20) (Lay Guerra MD) Kendall Bradshaw [facility] Feb 08, 2018 17:57 Lay Guerra MD Feb 08, 2018 22:46
[2018-02-08] MEDS: PANTOPRAZOLE SOD 40 MG DELAYED RELEASE TAB PO SCH (21:54)
[2018-02-09] VITALS (29 sets, daily range): BP systolic 93–112; BP diastolic 50–67; PULSE 58–102; RESP 16–18; TEMP 98.4–98.9; O2SAT 96–100
[2018-02-09] MEDS: MORPHINE SULFATE 15 MG CONTROLLED RELEASE TAB PO PRN ×3 (00:32→18:14)
[2018-02-09] MEDS: MORPHINE SULFATE 4 MG/ML INJ IV PUSH PRN ×5 (03:29→22:40)
[2018-02-09 06:57] LABS: AUTOMATED NEUTROPHIL # 3.8 TH/MM3 (1.8-7.7); BASOPHIL # 0.1 TH/MM3 (0-0.2); BASOPHIL % 1.1 % (0.0-2.0); EOSINOPHIL # 0.3 TH/MM3 (0-0.4); EOSINOPHIL % 4.7 % (0.0-4.0); HEMATOCRIT 31.6 % (35.0-46.0); HEMOGLOBIN 10.8 GM/DL (11.6-15.3); LYMPH % 32.9 % (9.0-44.0); LYMPHOCYTE # 2.4 TH/MM3 (1.0-4.8); MEAN CELL VOLUME 82.2 FL (80.0-100.0); MEAN CORPUSCULAR HGB CONC 34.1 % (32.0-36.0); MEAN PLATELET VOLUME 7.6 FL (7.0-11.0); MONO % 9.2 % (0.0-8.0); MONOCYTE # 0.7 TH/MM3 (0-0.9); NEUT % 52.1 % (16.0-70.0); PLATELET COUNT 171 TH/MM3 (150-450); RED BLOOD COUNT 3.84 MIL/MM3 (4.00-5.30); RED CELL DISTRIBUTION WIDTH 18.3 % (11.6-17.2); WHITE BLOOD COUNT 7.2 TH/MM3 (4.0-11.0)
[2018-02-09 07:19] LABS: BICARBONATE 26.6 MEQ/L (21.0-32.0); BLOOD UREA NITROGEN 26 MG/DL (7-18); CALCIUM 8.6 MG/DL (8.5-10.1); CHLORIDE 106 MEQ/L (98-107); CREATININE 1.43 MG/DL (0.50-1.00); GLOMERULAR FILTRATION RATE 40 ML/MIN (>89); GLUCOSE,RANDOM 110 MG/DL (74-106); MAGNESIUM 1.6 MG/DL (1.5-2.5); SODIUM (NA) 142 MEQ/L (136-145)
[2018-02-09 07:20] LABS: AST (GOT) 12 U/L (15-37)
[2018-02-09 07:28] LABS: ALKALINE PHOSPHATASE 68 U/L (45-117); ALT (GPT) 23 U/L (10-53); FREE T4 1.13 NG/DL (0.76-1.46); PHOSPHORUS 4.1 MG/DL (2.5-4.9); TOTAL BILIRUBIN ADULT 0.2 MG/DL (0.2-1.0); TOTAL PROTEIN 6.6 GM/DL (6.4-8.2)
[2018-02-09] MEDS: LEVOTHYROXINE SODIUM 125 MCG TAB PO SCH (07:52)
[2018-02-09] MEDS: DIAZEPAM 10 MG TAB PO PRN ×2 (07:52→15:55)
[2018-02-09] MEDS: POTASSIUM CHLORIDE 20 MEQ CONTROLLED RELEASE TAB PO SCH ×3 (08:50→18:14)
[2018-02-09] MEDS: CHOLECALCIFEROL (VIT D3) 5000 UNIT CAP PO SCH (08:51)
[2018-02-09] MEDS: FERROUS SULFATE 325 MG (65 MG ELEMENTAL IRON) TAB PO SCH ×2 (08:51→18:14)
[2018-02-09] MEDS: POTASSIUM PHOSPHATE MONOBASIC 500 MG TAB PO SCH ×4 (08:51→21:34)
[2018-02-09] MEDS: predniSONE 20 MG TAB PO SCH (08:52)
[2018-02-09] MEDS: MAGNESIUM OXIDE 400 MG TAB PO SCH (08:52)
[2018-02-09] MEDS: SPIRONOLACTONE 25 MG TAB PO SCH (08:52)
[2018-02-09] MEDS: SODIUM CHLORIDE 0.9% FLUSH 10 ML FLUSH IV FLUSH SCH ×3 (08:52→21:00)
[2018-02-09] MEDS ORDERED: CHOLECALCIFEROL (VIT D3) 5000 UNIT CAP PO SCH (09:00)
--- NOTE | 2018-02-09 10:06 | HHI.IDPN ---
Subjective Subjective Remarks Patient seen and examined with Dr. Guerra 42-year-old female with past medical history significant for lupus, gastroparesis, Crohn's disease, hypothyroidism, chronic kidney disease stage III , recurrent hypokalemia, anxiety, on chronic immunosuppressive and Brugada syndrome status post AICD placement October 2017 with history of previous device infection who presents to [facility] with complaints of chest pain secondary to sternal wound infection. 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 Cervantes who placed an AICD device in October of 2017. Patient states she started to feel unwell the end of November. In December 2017, she was admitted to [facility], completed 1 week of IV antibiotics followed by removal of the AICD device and had a subsequent treatment of antibiotics 1 week. She then had an AICD device reimplanted and completed 1 month of IV antibiotics. Patient is unsure but thinks that she was treated with Levaquin. She was not discharged on any oral antibiotic treatment. At that time, she was managed by infectious disease physician Dr. Gardner. She was recently admitted 01/18-01/24 for syncope, bradycardia, SHABANA, s/p dopamine drip, then heart rate stabilized and she was cleared by cardiology. At that time, she had a small wound overlying the sternum and was given Bactroban at discharge. About 2 weeks ago, she began developing left axillary pain over the site of her AICD device that radiated underneath the left breast into the mid sternum. She has had a poorly healing sore over the mid chest that began to enlarge as well as increased swelling and hardness underneath the left breast. Yesterday the sore opened up with purulent drainage. She reports chills but denies any fever or sweats. She denies any cough or shortness of breath. She denies any nausea or vomiting. States that she has chronic abdominal pain secondary to Crohn's disease and gastroparesis that is unchanged. She has a history of MRSA infection left axilla many years ago but states she's been tested multiple times for MRSA since then and is always been negative. She is not sure of what her cultures were that she grew when admitted at [facility] in December with infection of the AICD device but is certain it was not MRSA. Infectious disease has been consulted for evaluation and management of recurrent AICD device infection. Notes reviewed Patient states she continues to have left breast tenderness, hardening below the breast area Pain is managed by pain medication, working okay Continues to report drainage on previous external pacer site midepigastric region especially if she milks left breast. Patient states she continues to be weak, but states she is ambulating in her room. Reports feeling nauseous, but no vomiting. Denies fevers, chills Denies diarrhea Denies dysuria. No leukocytosis, WBC 7.2 Antibiotics Vancomycin IV Lines Peripheral lines Past Medical History Brugada syndrome Crohn's disease Lupus Recurrent hypokalemia Hypothyroidism Chronic kidney disease stage III Anxiety GERD Endometriosis AICD placement Oct 2017 with subsequent removal December 2017 and replacement approximately 3 weeks ago. PEG tube placement/removal Port placement and subsequent removal EGD/colonoscopies Appendectomy Laparotomies Ectopic Cystoscopie (Kendall Bradshaw) Allergies: Coded Allergies: Fish Containing Products (Unverified Allergy, Severe, SWELLING IN THROAT, SOB, 02/06/18) cephalexin (Unverified Allergy, Severe, RASH,SWELLING, 02/06/18) ketorolac (Unverified Allergy, Severe, RASH, 02/06/18) penicillin G (Unverified Allergy, Severe, RASH,SWELLING, 02/06/18) prochlorperazine (Unverified Allergy, Mild, DYSTONIC REACTION, 02/06/18) promethazine (Unverified Allergy, Mild, DYSTONIC REACTION, 02/06/18) gabapentin (Unverified Adverse Reaction, Severe, SEIZURES, 02/06/18) Objective . Vital Signs Date Time Temp Pulse Resp B/P (MAP) Pulse Ox O2 Delivery O2 Flow Rate FiO2 02/09/18 07:54 98.8 73 18 103/57 (72) 98 02/09/18 06:00 60 02/09/18 05:00 62 02/09/18 04:30 68 02/09/18 04:12 16 02/09/18 04:11 73 18 101/67 (78) 98 02/09/18 04:00 74 02/09/18 03:00 64 02/09/18 02:10 16 02/09/18 02:00 64 02/09/18 01:00 72 02/09/18 00:00 66 02/09/18 00:00 71 02/09/18 00:00 84 18 100/63 (75) 98 02/08/18 23:00 74 02/08/18 22:00 82 02/08/18 21:51 83 18 101/63 (76) 99 02/08/18 21:00 80 02/08/18 20:00 80 02/08/18 20:00 74 02/08/18 20:00 81 18 110/71 (84) 99 02/08/18 19:00 74 02/08/18 18:00 69 02/08/18 17:00 64 02/08/18 16:00 70 02/08/18 15:00 98.8 78 19 96/64 (75) 97 02/08/18 15:00 87 02/08/18 14:00 84 02/08/18 13:00 84 . Laboratory Tests Test 02/08/18 05:09 02/09/18 05:27 White Blood Count 6.9 TH/MM3 7.2 TH/MM3 Red Blood Count 3.54 MIL/MM3 3.84 MIL/MM3 Hemoglobin 10.0 GM/DL 10.8 GM/DL Hematocrit 29.7 % 31.6 % Mean Corpuscular Volume 83.7 FL 82.2 FL Mean Corpuscular Hemoglobin 28.2 PG 28.0 PG Mean Corpuscular Hemoglobin Concent 33.7 % 34.1 % Red Cell Distribution Width 18.7 % 18.3 % Platelet Count 169 TH/MM3 171 TH/MM3 Mean Platelet Volume 7.9 FL 7.6 FL Neutrophils (%) (Auto) 49.8 % 52.1 % Lymphocytes (%) (Auto) 37.3 % 32.9 % Monocytes (%) (Auto) 8.5 % 9.2 % Eosinophils (%) (Auto) 3.6 % 4.7 % Basophils (%) (Auto) 0.8 % 1.1 % Neutrophils # (Auto) 3.4 TH/MM3 3.8 TH/MM3 Lymphocytes # (Auto) 2.6 TH/MM3 2.4 TH/MM3 Monocytes # (Auto) 0.6 TH/MM3 0.7 TH/MM3 Eosinophils # (Auto) 0.2 TH/MM3 0.3 TH/MM3 Basophils # (Auto) 0.1 TH/MM3 0.1 TH/MM3 CBC Comment DIFF FINAL DIFF FINAL Differential Comment Laboratory Tests Test 02/08/18 05:00 02/09/18 05:27 Blood Urea Nitrogen 23 MG/DL 26 MG/DL Creatinine 1.36 MG/DL 1.43 MG/DL Random Glucose 99 MG/DL 110 MG/DL Calcium Level 8.5 MG/DL 8.6 MG/DL Sodium Level 143 MEQ/L 142 MEQ/L Potassium Level 3.5 MEQ/L 3.5 MEQ/L Chloride Level 110 MEQ/L 106 MEQ/L Carbon Dioxide Level 22.6 MEQ/L 26.6 MEQ/L Anion Gap 10 MEQ/L 9 MEQ/L Estimat Glomerular Filtration Rate 43 ML/MIN 40 ML/MIN Total Protein 6.6 GM/DL Albumin 3.0 GM/DL Phosphorus Level 4.1 MG/DL Magnesium Level 1.6 MG/DL Alkaline Phosphatase 68 U/L Aspartate Amino Transf (AST/SGOT) 12 U/L Alanine Aminotransferase (ALT/SGPT) 23 U/L Total Bilirubin 0.2 MG/DL Free Thyroxine 1.13 NG/DL Thyroid Stimulating Hormone 3rd Gen 0.033 uIU/ML Imaging Last Impressions Soft Tissue Ultrasound 02/07/18 0000 Signed Impressions: Service Date/Time: Wednesday, February 07, 2018 11:15 - CONCLUSION: There is a dominant heterogeneous echotexture fluid collection in the left axilla measuring in excess of 7 cm which has a linear hyperechoic structure coursing through it. There are also some scattered smaller areas of fluid in the anterior chest wall all measuring 1 cm or less. Vic Smith MD Chest CT 02/06/18 0000 Signed Impressions: Service Date/Time: Tuesday, February 06, 2018 10:52 - CONCLUSION: External cardiac pacer/defibrillator with a single lead. The lead courses from the left midaxillary implanted unit and has a 90 bend cephalad at the level of the lower sternum and with an adjacent small apparent fluid collection. Otherwise mildly edematous/indurated soft tissues around the lead. No CT evidence of osteomyelitis. No acute abnormality demonstrated within the thoracic cavity. Brian Arrieta MD Chest X-Ray 02/05/18 0000 Signed Impressions: Service Date/Time: Monday, February 05, 2018 19:55 - CONCLUSION: 1. No active disease. Defibrillator wire overlies the left hemithorax anteriorly. Hay Day MD Physical Exam GENERAL: This is a well-nourished, well-developed patient, in no apparent distress. SKIN: Warm and dry. Mild erythema over fourth digit of the left foot, chronic. HEENT: Normocephalic. Pupils equal round and reactive. Nose without bleeding. Airway patent. NECK: Trachea midline. No JVD. Supple. CARDIOVASCULAR: Regular rate and rhythm without murmurs, gallops, or rubs. CHEST: (+)1cm distal sternal open wound with active drainage when left breast is palpated, mild surrounding edema, tender to palpation. Left lateral axillary region with tender palpable subcutaneous AICD device with mild edema and tenderness to palpation. Tenderness along the course of the lead under the left breast with an area of induration noted proximal to the sternum. Left lateral upper chest surgical incision well approximated, raised, erythematous but does not appear to be infected. Well healed area of previous port site on right anterior chest. Drainage, purulent midsternal wound 1 left breast milked along course of the lead. RESPIRATORY: Clear to auscultation. Breath sounds equal bilaterally. No wheezes , rales, or rhonchi. GASTROINTESTINAL: Abdomen soft, non-tender, nondistended. Bowel Sounds normoactive x4. MUSCULOSKELETAL: Extremities without clubbing, cyanosis, or edema. NEUROLOGICAL: Awake and alert. Oriented to time, place, person. No focal neuro deficit. Moves all extremities. Normal speech. (Kendall Bradshaw) Assessment & Plan Remarks Remarks: Recurrent AICD/lead infection -No evidence of septic emboli on CT of the chest -Chest CT showed external cardiac pacer/defibrillator with a single lead. Courses from the left mid axillary unit and has 96, at the level of the lower external an adjacent small apparent fluid collection. Otherwise the edematous/ soft tissue around. Evidence of osteomyelitis. No acute abdomen demonstrated within the thoracic -Drainage tracking when breast is palpated towards the midsternal incision site -Echocardiogram showed EF 60%, left ventricular systolic function grossly normal, left atrial size mildly dilated, atrial size mildly dilated, mild MVR. Trace TVR. Structurally normal tricuspid valve and mitral valve. -Patient was diagnosed with bacterial [facility] it was treated with ceftriaxone and switch over to vancomycin for enterococcal bacteremia. Patient grew strep and enterococcus faecalis during that time. -Blood cultures no growth to date -02/05/18 wound culture staph aureus MRSA Immunocompromised with chronic prednisone use Crohn's disease Lupus Hypothyroidism Recommendations: Continue on vancomycin for now, continue to monitor kidney function - 02/05/18 wound culture sensitive to vancomycin, MRSA Wound culture resent from midsternal site abscess, follow-up results Follow blood cultures, NGTD CRP 1.[address] Cervantes, AICD may need to be taken out Will also discuss with CT Surgery Will Clinically follow patient progress Further recommendations to follow (Kendall Bradshaw) Remarks The exam, history, and the medical decision-making described in the above note were completed with the assistance of the mid-level provider. I reviewed and agree with the findings presented. I attest that I had a [id number] encounter with the patient on the same day, and personally performed and documented my assessment and findings in the medical record. Pacer pocket appears grossly infected. Skin over the pacer pocket site as well the leads appear indurated and the lead wires appear to have loculated fluid tracking along the course of the leads. Central epigastric site opening has yellow brown fluid oozing out when the pacer pocket or the lead course is gently milked. This is very concerning for device infection. Unfortunately device removal is necessary in this case. note about removal reviewed as well. Dw : dw above and concern that this will be a recurrent process without device removal. This device is not connected with the heart but is still an infected device that puts her at risk for prolonged untreated infections or partially infections. Given her history of lupus she could get septic at any point. is now agreeable to letting CT surgeon remove this device. Plan is to send her home with a VEST and no reinsertion for few months as these infections can brew and recurr over few weeks once antibiotics stopped. SHAYLEE DICK to clear patient for further placement of new device in the future. CT Surgery CARRIE Rain Informed about this decision. will put a note in chart that he is ok with device removal. Continue IV Vanco New culture sent from the opening after upper dried crust removed. Concern that deeper organism could still be an enterococcus. Patient has h/o enterococcal bacteremia and pacer infection in recent past. Follow cultures follow clinically. (Lay Guerra MD) Kendall Bradshaw Feb 09, 2018 10:06 Lay Guerra MD Feb 09, 2018 16:16
[2018-02-09] MEDS: VANCOMYCIN INJ 1,250 MG in SODIUM CHLOR 0.9% 250 ML INJ 250 ML IV SCH (11:19)
--- NOTE | 2018-02-09 12:24 | HHI.PR ---
Subjective Remarks 42-year-old female with history of lupus, Brugada syndrome, pacemaker/ defibrillator, hypothyroidism, CKD stage III, presents with concern for sternal wound infection and constant chest pain. The patient has history of syncope with Brugada syndrome, s/p pacer/AICD placement in , subsequently removed due to infection/bacteremia, now s/p replacement 3 weeks ago. She was also recently admitted 01/18-01/24 for syncope, bradycardia, SHABANA, s/p dopamine drip, then heart rate stabilized and she was cleared by cardiology. She was also discharged on bactroban ointment to apply to sternal wound which she has been compliant. She now returns to the ED with chest pain located throughout the left lower anterior chest that radiates around the left lateral thorax that began 2 weeks ago; described as constant burning pain, "feels like fire", worse with any movement. She reports chills, and a fever of 104 a few days ago, but she has been taking tylenol and ibuprofen and no recurrent fevers. Yesterday on February 05, she woke up and her sternal wound and left lateral chest was severely edematous. She rolled over to her side and the wound "opened up" with purulent drainage. She reports intermittent nausea and occasional vomiting over the past few weeks. She does report some lightheadedness, worse upon standing. Denies any shortness of breath. Her central aisle cashier is Dr. Calle. She has no other medical complaints to report at this time. 4-4 Follow up for suspected AICD infection, possible abscess. The patient reports continued bloody and purulent drainage from the distal sternal wound. She states it feels as though the fluid is coming from her AICD pocket and under the left breast. She reports continued pain and edema around the AICD at the left axillary region and under the left breast to the center of her chest. Denies fevers but does report chills overnight. Requesting regular diet. Denies any other medical complaints including lightheadedness, dizziness, shortness of breath, abdominal pain, nausea/vomiting, or diarrhea. 4-[address] CALLE, [facility], SEEN BY ID CONTINUED ON VANCO WANTS HER PAIN MEDICATIONS ADJUSTED 4-6 seen by infectious disease Seen by cardiovascular surgery Continue on antibiotics No new complaints Still taking breakthrough pain medications Discussed with infectious disease needs to have her AICD removed Objective Vitals Vital Signs Date Time Temp Pulse Resp B/P (MAP) Pulse Ox O2 Delivery O2 Flow Rate FiO2 02/09/18 11:17 98.7 84 16 93/50 (64) 98 02/09/18 07:54 98.8 73 18 103/57 (72) 98 02/09/18 06:00 60 02/09/18 05:00 62 02/09/18 04:30 68 02/09/18 04:12 16 02/09/18 04:11 73 18 101/67 (78) 98 02/09/18 04:00 74 02/09/18 03:00 64 02/09/18 02:10 16 02/09/18 02:00 64 02/09/18 01:00 72 02/09/18 00:00 66 02/09/18 00:00 71 02/09/18 00:00 84 18 100/63 (75) 98 02/08/18 23:00 74 02/08/18 22:00 82 02/08/18 21:51 83 18 101/63 (76) 99 02/08/18 21:00 80 02/08/18 20:00 80 02/08/18 20:00 74 02/08/18 20:00 81 18 110/71 (84) 99 02/08/18 19:00 74 02/08/18 18:00 69 02/08/18 17:00 64 02/08/18 16:00 70 02/08/18 15:00 98.8 78 19 96/64 (75) 97 02/08/18 15:00 87 02/08/18 14:00 84 02/08/18 13:00 84 I/O 02/08/18 02/08/18 02/08/18 02/09/18 02/09/18 02/09/18 07:00 15:00 23:00 07:00 15:00 23:00 Intake Total 840 ml 480 ml 660 ml Output Total 1600 ml Balance 840 ml 480 ml -940 ml Intake Oral 840 ml 480 ml 660 ml Output Urine Total 1600 ml # Voids 3 Result Diagram: 02/09/18 0527 02/09/18 0527 Other Results Laboratory Tests Test 02/07/18 07:30 02/08/18 05:00 02/08/18 05:09 02/09/18 05:27 White Blood Count 10.7 TH/MM3 6.9 TH/MM3 7.2 TH/MM3 Red Blood Count 3.52 MIL/MM3 3.54 MIL/MM3 3.84 MIL/MM3 Hemoglobin 9.8 GM/DL 10.0 GM/DL 10.8 GM/DL Hematocrit 29.9 % 29.7 % 31.6 % Mean Corpuscular Volume 84.8 FL 83.7 FL 82.2 FL Mean Corpuscular Hemoglobin 27.8 PG 28.2 PG 28.0 PG Mean Corpuscular Hemoglobin Concent 32.8 % 33.7 % 34.1 % Red Cell Distribution Width 18.7 % 18.7 % 18.3 % Platelet Count 172 TH/MM3 169 TH/MM3 171 TH/MM3 Mean Platelet Volume 7.4 FL 7.9 FL 7.6 FL Neutrophils (%) (Auto) 75.0 % 49.8 % 52.1 % Lymphocytes (%) (Auto) 11.6 % 37.3 % 32.9 % Monocytes (%) (Auto) 12.4 % 8.5 % 9.2 % Eosinophils (%) (Auto) 0.6 % 3.6 % 4.7 % Basophils (%) (Auto) 0.4 % 0.8 % 1.1 % Neutrophils # (Auto) 8.0 TH/MM3 3.4 TH/MM3 3.8 TH/MM3 Lymphocytes # (Auto) 1.2 TH/MM3 2.6 TH/MM3 2.4 TH/MM3 Monocytes # (Auto) 1.3 TH/MM3 0.6 TH/MM3 0.7 TH/MM3 Eosinophils # (Auto) 0.1 TH/MM3 0.2 TH/MM3 0.3 TH/MM3 Basophils # (Auto) 0.0 TH/MM3 0.1 TH/MM3 0.1 TH/MM3 CBC Comment DIFF FINAL DIFF FINAL DIFF FINAL Differential Comment Blood Urea Nitrogen 24 MG/DL 23 MG/DL 26 MG/DL Creatinine 1.24 MG/DL 1.36 MG/DL 1.43 MG/DL Random Glucose 109 MG/DL 99 MG/DL 110 MG/DL Calcium Level 8.7 MG/DL 8.5 MG/DL 8.6 MG/DL Sodium Level 146 MEQ/L 143 MEQ/L 142 MEQ/L Potassium Level 3.9 MEQ/L 3.5 MEQ/L 3.5 MEQ/L Chloride Level 113 MEQ/L 110 MEQ/L 106 MEQ/L Carbon Dioxide Level 26.6 MEQ/L 22.6 MEQ/L 26.6 MEQ/L Anion Gap 6 MEQ/L 10 MEQ/L 9 MEQ/L Estimat Glomerular Filtration Rate 48 ML/MIN 43 ML/MIN 40 ML/MIN C-Reactive Protein 1.40 MG/DL Random Vancomycin Level 6.8 COMMENT Total Protein 6.6 GM/DL Albumin 3.0 GM/DL Phosphorus Level 4.1 MG/DL Magnesium Level 1.6 MG/DL Alkaline Phosphatase 68 U/L Aspartate Amino Transf (AST/SGOT) 12 U/L Alanine Aminotransferase (ALT/SGPT) 23 U/L Total Bilirubin 0.2 MG/DL Free Thyroxine 1.13 NG/DL Thyroid Stimulating Hormone 3rd Gen 0.033 uIU/ML Imaging Last Impressions Soft Tissue Ultrasound 02/07/18 0000 Signed Impressions: Service Date/Time: Wednesday, February 07, 2018 11:15 - CONCLUSION: There is a dominant heterogeneous echotexture fluid collection in the left axilla measuring in excess of 7 cm which has a linear hyperechoic structure coursing through it. There are also some scattered smaller areas of fluid in the anterior chest wall all measuring 1 cm or less. Vic Smith MD Chest CT 02/06/18 0000 Signed Impressions: Service Date/Time: Tuesday, February 06, 2018 10:52 - CONCLUSION: External cardiac pacer/defibrillator with a single lead. The lead courses from the left midaxillary implanted unit and has a 90 bend cephalad at the level of the lower sternum and with an adjacent small apparent fluid collection. Otherwise mildly edematous/indurated soft tissues around the lead. No CT evidence of osteomyelitis. No acute abnormality demonstrated within the thoracic cavity. Brian Arrieta MD Chest X-Ray 02/05/18 0000 Signed Impressions: Service Date/Time: Monday, February 05, 2018 19:55 - CONCLUSION: 1. No active disease. Defibrillator wire overlies the left hemithorax anteriorly. Hay Day MD Objective Remarks GENERAL: Well-nourished, well-developed middle aged female patient in [facility]. SKIN: Warm and dry. 2cm distal sternal open wound with purulent drainage, surrounding edema, tender to palpation. Left lateral axillary region with palpable subcutaneous AICD with surrounding edema, TTP, no open wounds/ drainage. HEENT: Normocephalic. Atraumatic. Pupils equal and round. Mucous membranes pink and moist. CARDIOVASCULAR: Regular rate and rhythm. No murmur appreciated. RESPIRATORY: No accessory muscle use. Clear to auscultation. Breath sounds equal bilaterally. GASTROINTESTINAL: Abdomen soft, non-tender, nondistended. Normoactive bowel sounds x4. MUSCULOSKELETAL: No obvious deformities. Extremities without clubbing, cyanosis , or edema. NEUROLOGICAL: Awake and alert. No obvious cranial nerve deficits. Motor grossly within normal limits. Normal speech. PSYCHIATRIC: Appropriate mood and affect; insight and judgment normal. Medications and IVs Current Medications Vancomycin HCl 1000 mg/Sodium Chloride 250 ml @ 250 mls/hr ONCE ONCE IV Last administered on 02/06/18at 00:16; Start 02/05/18 at 23:15; Stop 02/06/18 at 00:14; Status DC Potassium Chloride (KCl) 40 meq ONCE ONCE PO Last administered on 02/06/18at 00: 15; Start 02/05/18 at 23:15; Stop 02/05/18 at 23:18; Status DC Morphine Sulfate (Morphine Inj) 2 mg ONCE ONCE IV PUSH Last administered on 02/06/18at 01:31; Start 02/06/18 at 01:30; Stop 02/06/18 at 01:31; Status DC Ondansetron HCl (Zofran Inj) 4 mg ONCE ONCE IV PUSH Last administered on at 01:31; Start 02/06/18 at 01:30; Stop 02/06/18 at 01:31; Status DC Pharmacy Profile Note 0 ml @ 0 mls/hr UNSCH OTHER ; Start 02/06/18 at 03:15; Stop 02/06/18 at 10:04; Status DC Sodium Chloride (NS Flush) 2 ml UNSCH PRN IV FLUSH FLUSH AFTER USING IV ACCESS ; Start 02/06/18 at 03:15 Sodium Chloride (NS Flush) 2 ml BID IV FLUSH Last administered on 02/09/18at 08: 52; Start 02/06/18 at 09:00 Acetaminophen (Tylenol) 650 mg Q4H PRN PO headache/fever/pain1-2; Start at 03:15 Naloxone HCl (Narcan Inj) 0.4 mg UNSCH PRN IV PUSH SEE LABEL COMMENTS; Start at 03:15 Prednisone (Deltasone) 10 mg DAILY PO Last administered on 02/06/18 08:07; Start 02/06/18 at 09:00; Stop 02/06/18 at 10:04; Status DC Ferrous Sulfate (Ferrous Sulfate) 325 mg BIDPC PO Last administered on 08:51; Start 02/06/18 at 09:00 Levothyroxine Sodium (Synthroid) 125 mcg DAILY@0700 PO Last administered on 02/09 07:52; Start 02/06/18 at 07:00 Magnesium Oxide (Mag-Ox) 400 mg DAILY PO Last administered on 02/09/18 08:52; Start 02/06/18 at 09:00 Pantoprazole Sodium (Protonix) 40 mg HS PO Last administered on 02/08/18 21:54 ; Start 02/06/18 at 21:00 Potassium Chloride (KCl) 40 meq TID PO Last administered on 02/09/18 11:20; Start 02/06/18 at 09:00 Potassium Phosphate (K-Phos) 500 mg PCHS PO Last administered on 02/09/18 11:20 ; Start 02/06/18 at 09:30 Spironolactone (Aldactone) 25 mg DAILY PO Last administered on 02/09/18 08:52; Start 02/06/18 at 09:00 Lorazepam (Ativan Inj) 1 mg ONCE ONCE IV PUSH Last administered on 02/06/18 07 :40; Start 02/06/18 at 08:00; Stop 02/06/18 at 08:01; Status DC Vancomycin HCl 500 mg/Sodium Chloride 100 ml @ 200 mls/hr ONCE ONCE IV Last administered on 02/06/18 09:36; Start 02/06/18 at 10:00; Stop 02/06/18 at 10:29; Status DC Diazepam (Valium) 10 mg TID PRN PO muscle spasm Last administered on 02/09/18 07:52; Start 02/06/18 at 12:00 Prednisone (Deltasone) 40 mg DAILY PO Last administered on 02/09/18 08:52; Start 02/07/18 at 09:00 Morphine Sulfate (Oramorph Sr) 15 mg Q8HR PRN PO pain 3-10 Last administered on 02/09/18 11:19; Start 02/06/18 at 12:30 Sodium Chloride 1,000 ml @ 84 mls/hr [id number] IV Last administered on 02/06/18 12:51; Start 02/06/18 at 12:00; Stop 02/06/18 at 23:54; Status DC Iodixanol (VISIPAQUE 320 INJ (Rad CT)) 50 ml STK-MED ONCE IVCONTRAST Last administered on 02/06/18 11:13; Start 02/06/18 at 11:13; Stop 02/06/18 at 11:14; Status DC Prednisone (Deltasone) 30 mg ONCE ONCE PO Last administered on 02/06/18 12:49 ; Start 02/06/18 at 13:00; Stop 02/06/18 at 13:01; Status DC Pharmacy Profile Note 0 ml @ 0 mls/hr UNSCH OTHER ; Start 02/07/18 at 07:30 Vancomycin HCl 1250 mg/Sodium Chloride 262.5 ml @ 250 mls/hr Q24H IV Last administered on 02/09/18 11:19; Start 02/07/18 at 12:00 Miscellaneous Information SPECIFIC LAB TO BE DRAWN:VANCO TROUGH DATE... ONCE ONCE .XX ; Start 02/10/18 at 11:45; Stop 02/10/18 at 11:46 Cholecalciferol (Vitamin D3) 20,000 units DAILY PO ; Start 02/09/18 at 09:00; Stop 02/09/18 at 09:00; Status DC Cholecalciferol (Vitamin D3) 20,000 units Q72H PO Last administered on 08:51; Start 02/09/18 at 09:00 Morphine Sulfate (Morphine Inj) 4 mg Q3H PRN IV PUSH BREAKTHROUGH PAIN Last administered on 02/09/18at 08:47; Start 02/08/18 at 13:00 Naloxone HCl (Narcan Inj) 0.4 mg UNSCH PRN IV PUSH SEE LABEL COMMENTS; Start at 13:00 A/P Problem List: (1) Cellulitis of chest wall ICD Code: L03.313 - Cellulitis of chest wall Status: Acute (2) SHABANA (acute kidney injury) ICD Code: N17.9 - Acute kidney failure, unspecified Assessment and Plan 42-year-old female with history of lupus, Brugada syndrome, pacemaker/ defibrillator, hypothyroidism, CKD stage III, presents with concern for sternal wound infection and constant chest pain. Recurrent AICD Infection with Sternal Wound Cellulitis: afebrile, no leukocytosis, however +tachycardia and wound with purulent drainage. CXR reviewed and unremarkable. Need to rule out abscess vs recurrent bacteremia. -Chest CT reviewed, shows external cardiac pacer/defibrillator with a single lead that courses from the left midaxillary implanted unit and has a 90deg bend cephalad at the level of the lower sternum and with an adjacent small apparent fluid collection. Otherwise mildly edematous/indurated soft tissues around the lead. No CT evidence of osteomyelitis. No acute abnormality demonstrated within the thoracic cavity. -Wound and Blood cultures collected and pending -Continue antibiotics with IV Vanco, pharmacy consulted -Tylenol prn fever, continue patient's Oramorph prn pain MORPHINE IV FOR BREAKTHRU PAIN -Consult patient's central aisle cashier Dr. Calle, likely needs AICD removal -Consult ID, discussed with Dr. Guerra, appreciate recommendations -Obtain records from previous hospitalization at , including ID Dr. Gardner notes, echo, imaging, cultures, etc. -Chest U/S and Echocardiogram ordered -Admit to inpatient and transfer to [facility] per Dr. Guerra SEEN BY [facility] AND DR CALLE Needs AICD out Positive MRSA Atypical Chest Pain: suspect secondary to infection, pain reproducible with palpation and movement -Continue patient's Oramorph 15mg q8h prn pain -monitor on telemetry Brugada Syndrome: s/p pacer/AICD -monitor on telemetry -cardiology consulted as above SHABANA on CKD stage III: suspect secondary to dehydration. Cr 1.99, previously 1.24 on 01/24/18. -give IVF hydration -monitor BMP, improving with Cr 1.24 -avoid nephrotoxins Hypokalemia: patient with chronic history of hypokalemia, on KCl 40meq tid at home. K 3.1 upon arrival -continue patient's potassium replacement -monitor BMP, give additional replacement as needed Lupus: chronic -continue patient's prednisone 40mg daily -continue pain control with patient's Oramorph 15mg q8h prn Anxiety: chronic -continue patient's valium 10mg tid prn Hypothyroidism: chronic -continue patient's Synthroid 125mcg daily CHRONIC PAIN - CONTINUE PAIN CONTROL DVT Prophylaxis: mariano/SCDs; avoid chemoprophylaxis incase surgical intervention is indicated Discharge Planning PENDING ID AND [facility] AND Nathaniel Tenorio DO Feb 09, 2018 12:24
--- NOTE | 2018-02-09 15:48 | PD.CAR.PN ---
CVT Progress Note Subjective/Hospital Course: 42-year-old female with past medical history significant for lupus, gastroparesis, Crohn's disease, hypothyroidism, chronic kidney disease stage III , recurrent hypokalemia, anxiety, on chronic immunosuppressive and Brugada syndrome status post AICD placement October 2017 with history of previous device infection who presents to [facility] with complaints of chest pain secondary to sternal wound infection. Her wrapper operator is Dr. Cervantes who placed an AICD device in October of 2017. Patient states she started to feel unwell the end of November. In December 2017, she was admitted to [facility], completed 1 week of IV antibiotics followed by removal of the AICD device and had a subsequent treatment of antibiotics 1 week. She then had an AICD device reimplanted and completed 1 month of IV antibiotics. Patient is unsure but thinks that she was treated with Levaquin. She was not discharged on any oral antibiotic treatment. At that time, she was managed by infectious disease physician Dr. Gardner. She was recently admitted 01/18-01/24 for syncope, bradycardia, SHABANA, s/p dopamine drip, then heart rate stabilized and she was cleared by cardiology. At that time, she had a small wound overlying the sternum and was given Bactroban at discharge. About 2 weeks ago, she began developing left axillary pain over the site of her AICD device that radiated underneath the left breast into the mid sternum. She has had a poorly healing sore over the mid chest that began to enlarge as well as increased swelling and hardness underneath the left breast. Yesterday the sore opened up with purulent drainage. She reports chills but denies any fever or sweats. She denies any cough or shortness of breath. She denies any nausea or vomiting. States that she has chronic abdominal pain secondary to Crohn's disease and gastroparesis that is unchanged. She has a history of MRSA infection left axilla many years ago but states she's been tested multiple times for MRSA since then and is always been negative. She is not sure of what her cultures were that she grew when admitted at [facility] in December with infection of the AICD device but is certain it was not MRSA. 02/09 pt still has increasing tenderness and swelling left breast and axilla pt has been seen by ID and recommend removal of ICD and leads/ Dr Cervantes agreeable and will proceed on 02/13 Objective: GENERAL: A&O x 3 SKIN: Warm and dry.(+)1cm distal sternal open wound with active drainage when left breast is palpated, mild surrounding edema, tender to palpation. Left lateral axillary region with tender palpable subcutaneous AICD device with mild edema and tenderness to palpation. Tenderness along the course of the lead under the left breast with an area of induration noted proximal to the sternum. Left lateral upper chest surgical incision well approximated, raised, erythematous but does not appear to be infected. Well healed area of previous port site on right anterior chest. Drainage, purulent midsternal wound 1 left breast milked along course of the lead. HEAD: Normocephalic. EYES: No scleral icterus. No injection or drainage. NECK: Supple, trachea midline. No JVD or lymphadenopathy. CARDIOVASCULAR: Regular rate and rhythm without murmurs, gallops, or rubs. RESPIRATORY: Breath sounds equal bilaterally. No accessory muscle use. GASTROINTESTINAL: Abdomen soft, non-tender, nondistended. MUSCULOSKELETAL: No cyanosis, or edema. BACK: Nontender without obvious deformity. No CVA tenderness. Vital Signs Date Time Temp Pulse Resp B/P (MAP) Pulse Ox O2 Delivery O2 Flow Rate FiO2 02/09/18 14:31 73 02/09/18 13:00 72 02/09/18 12:00 78 02/09/18 11:17 98.7 84 16 93/50 (64) 98 02/09/18 11:00 80 02/09/18 10:00 88 02/09/18 09:00 74 02/09/18 08:00 72 02/09/18 07:54 98.8 73 18 103/57 (72) 98 02/09/18 07:00 58 02/09/18 06:00 60 02/09/18 05:00 62 02/09/18 04:30 68 02/09/18 04:12 16 02/09/18 04:11 73 18 101/67 (78) 98 02/09/18 04:00 74 02/09/18 03:00 64 02/09/18 02:10 16 02/09/18 02:00 64 02/09/18 01:00 72 02/09/18 00:00 66 02/09/18 00:00 71 02/09/18 00:00 84 18 100/63 (75) 98 02/08/18 23:00 74 02/08/18 22:00 82 02/08/18 21:51 83 18 101/63 (76) 99 02/08/18 21:00 80 02/08/18 20:00 80 02/08/18 20:00 74 02/08/18 20:00 81 18 110/71 (84) 99 02/08/18 19:00 74 02/08/18 18:00 69 02/08/18 17:00 64 02/08/18 16:00 70 Labs: Laboratory Tests Test 02/09/18 05:27 White Blood Count 7.2 TH/MM3 (4.0-11.0) Red Blood Count 3.84 MIL/MM3 (4.00-5.30) Hemoglobin 10.8 GM/DL (11.6-15.3) Hematocrit 31.6 % (35.0-46.0) Mean Corpuscular Volume 82.2 FL (80.0-100.0) Mean Corpuscular Hemoglobin 28.0 PG (27.0-34.0) Mean Corpuscular Hemoglobin Concent 34.1 % (32.0-36.0) Red Cell Distribution Width 18.3 % (11.6-17.2) Platelet Count 171 TH/MM3 (150-450) Mean Platelet Volume 7.6 FL (7.0-11.0) Neutrophils (%) (Auto) 52.1 % (16.0-70.0) Lymphocytes (%) (Auto) 32.9 % (9.0-44.0) Monocytes (%) (Auto) 9.2 % (0.0-8.0) Eosinophils (%) (Auto) 4.7 % (0.0-4.0) Basophils (%) (Auto) 1.1 % (0.0-2.0) Neutrophils # (Auto) 3.8 TH/MM3 (1.8-7.7) Lymphocytes # (Auto) 2.4 TH/MM3 (1.0-4.8) Monocytes # (Auto) 0.7 TH/MM3 (0-0.9) Eosinophils # (Auto) 0.3 TH/MM3 (0-0.4) Basophils # (Auto) 0.1 TH/MM3 (0-0.2) CBC Comment DIFF FINAL Differential Comment Blood Urea Nitrogen 26 MG/DL (7-18) Creatinine 1.43 MG/DL (0.50-1.00) Random Glucose 110 MG/DL (74-106) Total Protein 6.6 GM/DL (6.4-8.2) Albumin 3.0 GM/DL (3.4-5.0) Calcium Level 8.6 MG/DL (8.5-10.1) Phosphorus Level 4.1 MG/DL (2.5-4.9) Magnesium Level 1.6 MG/DL (1.5-2.5) Alkaline Phosphatase 68 U/L (45-117) Aspartate Amino Transf (AST/SGOT) 12 U/L (15-37) Alanine Aminotransferase (ALT/SGPT) 23 U/L (10-53) Total Bilirubin 0.2 MG/DL (0.2-1.0) Sodium Level 142 MEQ/L (136-145) Potassium Level 3.5 MEQ/L (3.5-5.1) Chloride Level 106 MEQ/L (98-107) Carbon Dioxide Level 26.6 MEQ/L (21.0-32.0) Anion Gap 9 MEQ/L (5-15) Estimat Glomerular Filtration Rate 40 ML/MIN (>89) Free Thyroxine 1.13 NG/DL (0.76-1.46) Thyroid Stimulating Hormone 3rd Gen 0.033 uIU/ML (0.358-3.740) Result Diagram: 02/09/1852602/09/18526 (1) Brugada syndrome (2) Post traumatic stress disorder (PTSD) (3) Lupus (systemic lupus erythematosus) (4) AICD generator infection Plan: for removal on 02/13 (5) Infection of automatic implantable cardioverter-defibrillator lead Plan: [facility] rep notified 02/09 Tigist Rosa Feb 09, 2018 15:48
[2018-02-09] MEDS ORDERED: VANCOMYCIN INJ 1,000 MG in SODIUM CHLORIDE 0.9% IRR BTL 1,000 ML IRRIGATION SCH (16:00)
[2018-02-09] MEDS ORDERED: VANCOMYCIN INJ 1,000 MG in SODIUM CHLOR 0.9% 250 ML INJ 250 ML IV SCH (16:00)
[2018-02-09] MEDS ORDERED: CHLORHEXIDINE GLUCONATE 4% SOLN 120 ML BTL TOPICAL SCH (16:00)
[2018-02-09] MEDS ORDERED: SODIUM CHLORIDE 0.9% FLUSH 10 ML FLUSH IV FLUSH PRN (16:00)
[2018-02-09 16:50] LABS: HEMOGLOBIN A1C 5.1 % (4.3-6.0)
[2018-02-09 20:42] LABS: BILIRUBIN, URINE NEG (NEG); BLOOD, URINE NEG (NEG); GLUCOSE,URINE NEG (NEG); HYALINE CAST, URINE 8 /lpf (RARE); KETONE, URINE NEG (NEG); NITRITE,URINE NEG (NEG); SQUAMOUS EPITHELIAL CELL URINE 6 /hpf (0-5); URINE COLOR YELLOW (YELLW/STRAW); URINE LEUKOCYTE ESTERASE NEG (NEG)
[2018-02-09] MEDS: PANTOPRAZOLE SOD 40 MG DELAYED RELEASE TAB PO SCH (21:34)
[2018-02-10] VITALS (24 sets, daily range): BP systolic 97–111; BP diastolic 51–78; PULSE 68–93; RESP 16–18; TEMP 98–98.6; O2SAT 94–99
[2018-02-10] MEDS: DIAZEPAM 10 MG TAB PO PRN ×3 (00:19→17:19)
[2018-02-10] MEDS: MORPHINE SULFATE 15 MG CONTROLLED RELEASE TAB PO PRN ×3 (03:35→19:50)
[2018-02-10] MEDS: LEVOTHYROXINE SODIUM 125 MCG TAB PO SCH (05:45)
[2018-02-10] MEDS: MORPHINE SULFATE 4 MG/ML INJ IV PUSH PRN ×7 (05:46→23:39)
[2018-02-10 06:57] LABS: AUTOMATED NEUTROPHIL # 3.5 TH/MM3 (1.8-7.7); BASOPHIL # 0.1 TH/MM3 (0-0.2); BASOPHIL % 0.9 % (0.0-2.0); EOSINOPHIL # 0.3 TH/MM3 (0-0.4); EOSINOPHIL % 4.9 % (0.0-4.0); HEMATOCRIT 31.4 % (35.0-46.0); HEMOGLOBIN 10.6 GM/DL (11.6-15.3); LYMPH % 34.7 % (9.0-44.0); LYMPHOCYTE # 2.4 TH/MM3 (1.0-4.8); MEAN CORPUSCULAR HGB CONC 33.7 % (32.0-36.0); MEAN PLATELET VOLUME 7.6 FL (7.0-11.0); MONO % 9.9 % (0.0-8.0); MONOCYTE # 0.7 TH/MM3 (0-0.9); NEUT % 49.6 % (16.0-70.0); PLATELET COUNT 154 TH/MM3 (150-450); RED BLOOD COUNT 3.79 MIL/MM3 (4.00-5.30); RED CELL DISTRIBUTION WIDTH 18.1 % (11.6-17.2)
[2018-02-10 07:02] LABS: AST (GOT) 9 U/L (15-37); BLOOD UREA NITROGEN 26 MG/DL (7-18); CALCIUM 8.4 MG/DL (8.5-10.1); CHLORIDE 105 MEQ/L (98-107); GLOMERULAR FILTRATION RATE 41 ML/MIN (>89); GLUCOSE,RANDOM 109 MG/DL (74-106); MAGNESIUM 1.9 MG/DL (1.5-2.5); SODIUM (NA) 141 MEQ/L (136-145)
[2018-02-10 07:07] LABS: ALKALINE PHOSPHATASE 72 U/L (45-117); ALT (GPT) 19 U/L (10-53); PHOSPHORUS 4.7 MG/DL (2.5-4.9); TOTAL BILIRUBIN ADULT 0.2 MG/DL (0.2-1.0); TOTAL PROTEIN 6.4 GM/DL (6.4-8.2)
[2018-02-10] MEDS: MAGNESIUM OXIDE 400 MG TAB PO SCH (08:20)
[2018-02-10] MEDS: FERROUS SULFATE 325 MG (65 MG ELEMENTAL IRON) TAB PO SCH ×2 (08:20→17:19)
[2018-02-10] MEDS: SPIRONOLACTONE 25 MG TAB PO SCH (08:20)
[2018-02-10] MEDS: predniSONE 20 MG TAB PO SCH (08:20)
[2018-02-10] MEDS: POTASSIUM CHLORIDE 20 MEQ CONTROLLED RELEASE TAB PO SCH ×3 (08:20→17:19)
[2018-02-10] MEDS: POTASSIUM PHOSPHATE MONOBASIC 500 MG TAB PO SCH ×4 (08:20→20:24)
[2018-02-10] MEDS: SODIUM CHLORIDE 0.9% FLUSH 10 ML FLUSH IV FLUSH SCH ×3 (08:21→20:24)
--- NOTE | 2018-02-10 10:33 | HHI.IDPN ---
Subjective Subjective Remarks Patient seen and examined with Dr. Guerra 42-year-old female with past medical history significant for lupus, gastroparesis, Crohn's disease, hypothyroidism, chronic kidney disease stage III , recurrent hypokalemia, anxiety, on chronic immunosuppressive and Brugada syndrome status post AICD placement October 2017 with history of previous device infection who presents to [facility] with complaints of chest pain secondary to sternal wound infection. Her stoper is Dr. Cervantes who placed an AICD device in October of 2017. Patient states she started to feel unwell the end of November. In December 2017, she was admitted to [facility], completed 1 week of IV antibiotics followed by removal of the AICD device and had a subsequent treatment of antibiotics 1 week. She then had an AICD device reimplanted and completed 1 month of IV antibiotics. Patient is unsure but thinks that she was treated with Levaquin. She was not discharged on any oral antibiotic treatment. At that time, she was managed by infectious disease physician Dr. Gardner. She was recently admitted 01/18-01/24 for syncope, bradycardia, SHABANA, s/p dopamine drip, then heart rate stabilized and she was cleared by cardiology. At that time, she had a small wound overlying the sternum and was given Bactroban at discharge. About 2 weeks ago, she began developing left axillary pain over the site of her AICD device that radiated underneath the left breast into the mid sternum. She has had a poorly healing sore over the mid chest that began to enlarge as well as increased swelling and hardness underneath the left breast. Yesterday the sore opened up with purulent drainage. She reports chills but denies any fever or sweats. She denies any cough or shortness of breath. She denies any nausea or vomiting. States that she has chronic abdominal pain secondary to Crohn's disease and gastroparesis that is unchanged. She has a history of MRSA infection left axilla many years ago but states she's been tested multiple times for MRSA since then and is always been negative. She is not sure of what her cultures were that she grew when admitted at [facility] in December with infection of the AICD device but is certain it was not MRSA. Infectious disease has been consulted for evaluation and management of recurrent AICD device infection. Notes reviewed Patient states she continues to have left breast tenderness and states hardness under the breast is worsening She reports increased pain in the left axilla and left chest She states the midsternal open wound continues to drain over site of previous external pacer site She also reports 15-20 min of redness and burning pain along the forearm extending up into the antecubital fossa following IV morphine administration. Also reports a hard tender area in the RUE where she had a previous IV site No fever or chills No diarrhea afebrile No leukocytosis, WBC 7.0 Wound Cx 4/2 + MRSA Antibiotics Vancomycin IV Lines Left forearm PIV without any evidence of infection Past Medical History Brugada syndrome Crohn's disease Lupus Recurrent hypokalemia Hypothyroidism Chronic kidney disease stage III Anxiety GERD Endometriosis AICD placement Oct 2017 with subsequent removal December 2017 and replacement approximately 3 weeks ago. PEG tube placement/removal Port placement and subsequent removal EGD/colonoscopies Appendectomy Laparotomies Ectopic Cystoscopie (Robyn Baldwin) Allergies: Coded Allergies: Fish Containing Products (Unverified Allergy, Severe, SWELLING IN THROAT, SOB, 02/06/18) cephalexin (Unverified Allergy, Severe, RASH,SWELLING, 02/06/18) ketorolac (Unverified Allergy, Severe, RASH, 02/06/18) penicillin G (Unverified Allergy, Severe, RASH,SWELLING, 02/06/18) prochlorperazine (Unverified Allergy, Mild, DYSTONIC REACTION, 02/06/18) promethazine (Unverified Allergy, Mild, DYSTONIC REACTION, 02/06/18) gabapentin (Unverified Adverse Reaction, Severe, SEIZURES, 02/06/18) Objective . Vital Signs Date Time Temp Pulse Resp B/P (MAP) Pulse Ox O2 Delivery O2 Flow Rate FiO2 02/10/18 10:01 79 02/10/18 09:08 76 02/10/18 08:51 98.0 80 18 108/78 (88) 97 02/10/18 08:51 69 02/10/18 08:26 16 02/10/18 06:00 72 02/10/18 05:00 72 02/10/18 04:00 78 02/10/18 03:35 80 16 107/57 (74) 99 02/10/18 03:00 70 02/10/18 02:00 70 02/10/18 01:00 76 02/10/18 00:00 68 02/09/18 23:00 74 02/09/18 23:00 80 16 98/54 (69) 100 02/09/18 22:00 88 02/09/18 21:00 102 02/09/18 20:00 90 02/09/18 19:00 98.4 90 16 97/63 (74) 97 02/09/18 19:00 97 02/09/18 18:02 98 02/09/18 17:58 99 02/09/18 16:25 84 02/09/18 15:50 98.9 84 16 112/65 (81) 96 02/09/18 15:00 92 02/09/18 14:31 73 02/09/18 13:00 72 02/09/18 12:00 78 02/09/18 11:17 98.7 84 16 93/50 (64) 98 02/09/18 11:00 80 . Laboratory Tests Test 02/09/18 05:27 02/10/18 05:18 White Blood Count 7.2 TH/MM3 7.0 TH/MM3 Red Blood Count 3.84 MIL/MM3 3.79 MIL/MM3 Hemoglobin 10.8 GM/DL 10.6 GM/DL Hematocrit 31.6 % 31.4 % Mean Corpuscular Volume 82.2 FL 83.0 FL Mean Corpuscular Hemoglobin 28.0 PG 28.0 PG Mean Corpuscular Hemoglobin Concent 34.1 % 33.7 % Red Cell Distribution Width 18.3 % 18.1 % Platelet Count 171 TH/MM3 154 TH/MM3 Mean Platelet Volume 7.6 FL 7.6 FL Neutrophils (%) (Auto) 52.1 % 49.6 % Lymphocytes (%) (Auto) 32.9 % 34.7 % Monocytes (%) (Auto) 9.2 % 9.9 % Eosinophils (%) (Auto) 4.7 % 4.9 % Basophils (%) (Auto) 1.1 % 0.9 % Neutrophils # (Auto) 3.8 TH/MM3 3.5 TH/MM3 Lymphocytes # (Auto) 2.4 TH/MM3 2.4 TH/MM3 Monocytes # (Auto) 0.7 TH/MM3 0.7 TH/MM3 Eosinophils # (Auto) 0.3 TH/MM3 0.3 TH/MM3 Basophils # (Auto) 0.1 TH/MM3 0.1 TH/MM3 CBC Comment DIFF FINAL DIFF FINAL Differential Comment Laboratory Tests Test 02/09/18 05:27 02/10/18 05:18 Blood Urea Nitrogen 26 MG/DL 26 MG/DL Creatinine 1.43 MG/DL 1.40 MG/DL Random Glucose 110 MG/DL 109 MG/DL Total Protein 6.6 GM/DL 6.4 GM/DL Albumin 3.0 GM/DL 3.0 GM/DL Calcium Level 8.6 MG/DL 8.4 MG/DL Phosphorus Level 4.1 MG/DL 4.7 MG/DL Magnesium Level 1.6 MG/DL 1.9 MG/DL Alkaline Phosphatase 68 U/L 72 U/L Aspartate Amino Transf (AST/SGOT) 12 U/L 9 U/L Alanine Aminotransferase (ALT/SGPT) 23 U/L 19 U/L Total Bilirubin 0.2 MG/DL 0.2 MG/DL Sodium Level 142 MEQ/L 141 MEQ/L Potassium Level 3.5 MEQ/L 3.3 MEQ/L Chloride Level 106 MEQ/L 105 MEQ/L Carbon Dioxide Level 26.6 MEQ/L 29.0 MEQ/L Anion Gap 9 MEQ/L 7 MEQ/L Estimat Glomerular Filtration Rate 40 ML/MIN 41 ML/MIN Hemoglobin A1c 5.1 % Free Thyroxine 1.13 NG/DL Thyroid Stimulating Hormone 3rd Gen 0.033 uIU/ML Microbiology Date/Time Source Procedure Growth Status 02/09/18 10:00 Abscess Other Gram Stain - Final Resulted 02/09/18 10:00 Abscess Other Wound Culture Pending Resulted Imaging Last Impressions Soft Tissue Ultrasound 02/07/18 0000 Signed Impressions: Service Date/Time: Wednesday, February 07, 2018 11:15 - CONCLUSION: There is a dominant heterogeneous echotexture fluid collection in the left axilla measuring in excess of 7 cm which has a linear hyperechoic structure coursing through it. There are also some scattered smaller areas of fluid in the anterior chest wall all measuring 1 cm or less. Vic Smith MD Chest CT 02/06/18 0000 Signed Impressions: Service Date/Time: Tuesday, February 06, 2018 10:52 - CONCLUSION: External cardiac pacer/defibrillator with a single lead. The lead courses from the left midaxillary implanted unit and has a 90 bend cephalad at the level of the lower sternum and with an adjacent small apparent fluid collection. Otherwise mildly edematous/indurated soft tissues around the lead. No CT evidence of osteomyelitis. No acute abnormality demonstrated within the thoracic cavity. Brian Arrieta MD Chest X-Ray 02/05/18 0000 Signed Impressions: Service Date/Time: Monday, February 05, 2018 19:55 - CONCLUSION: 1. No active disease. Defibrillator wire overlies the left hemithorax anteriorly. Hay Day MD Physical Exam GENERAL: This is a well-nourished, well-developed female patient, in no apparent distress. Awake and alert. Appears comfortable. SKIN: Warm and dry. Mild erythema over fourth digit of the left foot, chronic. HEENT: Normocephalic. Pupils equal round and reactive. Nose without bleeding. Airway patent. NECK: Trachea midline. No JVD. Supple. CARDIOVASCULAR: Regular rate and rhythm without murmurs, gallops, or rubs. CHEST: (+)1cm distal sternal open wound with scant amount of greenish drainage noted on dressing. Not able to express any fluid with palpation of the left breast. Mild surrounding edema, tender to palpation. Left lateral axillary region with tender palpable subcutaneous AICD device with mild edema and tenderness with induration to palpation. Tenderness and induration along the course of the lead under the left breast. Left lateral upper chest surgical incision well approximated, raised, erythematous but does not appear to be infected. Well healed area of previous port site on right anterior chest. RESPIRATORY: Clear to auscultation. Breath sounds equal bilaterally. No wheezes , rales, or rhonchi. GASTROINTESTINAL: Abdomen soft, non-tender, nondistended. Bowel Sounds normoactive x4. MUSCULOSKELETAL: Extremities without clubbing, cyanosis, or edema. NEUROLOGICAL: Awake and alert. Oriented to time, place, person. No focal neuro deficit. Moves all extremities. Normal speech. PSYCHIATRIC: Appropriate mood and affect. Normal insight and judgment. (Robyn Baldwin) Assessment & Plan Remarks Recurrent AICD/lead infection -No evidence of septic emboli on CT of the chest -Chest CT showed external cardiac pacer/defibrillator with a single lead. Courses from the left mid axillary unit and has 96, at the level of the lower external an adjacent small apparent fluid collection. Otherwise the edematous/ soft tissue around. Evidence of osteomyelitis. No acute abdomen demonstrated within the thoracic -Drainage tracking when breast is palpated towards the midsternal incision site, none elicited on today's exam but appreciate scant amount of greenish drainage on dressing. -Echocardiogram showed EF 60%, left ventricular systolic function grossly normal, left atrial size mildly dilated, atrial size mildly dilated, mild MVR. Trace TVR. Structurally normal tricuspid valve and mitral valve. -Treated at [facility] with ceftriaxone and switched over to vancomycin for enterococcal bacteremia. Patient grew strep and enterococcus faecalis during that time. -Blood cultures no growth to date -02/05/18 wound culture staph aureus MRSA, sensitive to Vancomycin -CRP 1.40 Immunocompromised with chronic prednisone use Crohn's disease Lupus Hypothyroidism ? Phlebitis ? Thrombosis RUE ? Morphine allergy Recommendations: Discontinue vancomycin. Change to po Zyvox 600mg po q 12h Concern for deeper infection, possibly enterococcus. Wound culture resent from midsternal site abscess, follow-up results pending Follow blood cultures, NGTD Obtain RUE US Dr. Cervantes and Dr. Vásquez agree device must be removed. Scheduled for surgery . Plan is to send her home with a VEST and no reinsertion for few months as these infections can brew and recur over few weeks once antibiotics have been stopped. ID MD to clear patient for further placement of new device in the future. May require chronic suppressive abx treatment Will follow up on intraop culture results following surgery Further recommendations to follow (Robyn Baldwin) Remarks The exam, history, and the medical decision-making described in the above note were completed with the assistance of the mid-level provider. I reviewed and agree with the findings presented. I attest that I had a [id number] encounter with the patient on the same day, and personally performed and documented my assessment and findings in the medical record. No CL concern may be abused and with infection on Left side not good idea. Left UE thrombosis mment per primary DC Vanco IV Oral Zyvox Device removal on per CT Surgery team Please send following on intraop specimen: 1. Gram stain and Culture 2. AFB stain and culture 3. Fungal stain and Culture. Will follow prn over the weekend. (Lay Guerra MD) Robyn Baldwin Feb 10, 2018 10:32 Lay Guerra MD Feb 10, 2018 19:46
--- NOTE | 2018-02-10 10:55 | RADRPT ---
EXAM DATE/TIME: 02/10/2018 09:41 [facility] COMPARISON: No previous studies available for comparison. INDICATIONS : Left arm swelling. MEDICAL HISTORY : Hypothyroidism. Gastroesophageal reflux disease. . Epilepsy. Migraines. Numbness. Pneumonia. Ulcer. Gastroparesis. Esophagitis. Ovarian cysts. Ectopic . Renal failure. Kidney stones. B ipolar disorder. Lupus. Crohn's disease. blood transfusion. c.diff. mrsa. SURGICAL HISTORY : Appendectomy. Hysterectomy. Bladder surgery. Pacemaker. Abscess removal in mouth. ENCOUNTER: Initial ACUITY: 1 day PAIN SCORE: 6/10 LOCATION: Left arm. FINDINGS: There is spontaneous flow documented in the brachial, basilic, cephalic, axillary, and subclavian vei ns. The vessels are compressible and augmentation response is documented. No filling defects are se en. The flow is phasic with respiration. Direction of flow in the jugular vein is caudal. CONCLUSION: No evidence of DVT. Tigist Vega MD on February 10, 2018 at 10:51 Board Certified Radiologist. This report was verified electronically.
--- NOTE | 2018-02-10 11:01 | RADRPT ---
EXAM DATE/TIME: 02/10/2018 09:58 [facility] COMPARISON: No previous studies available for comparison. INDICATIONS : Right arm pain. MEDICAL HISTORY : Epilepsy. Migraines. Numbness. Pneumonia. Ulcer. Gastroparesis. Esophagitis. Ovarian cysts. Ectopic p regnancy. Renal failure. Kidney stones. Bipolar disorder. Lupus. Crohn's disease. blood transfusion. c.diff. mrsa. hypothyroid. gerd. SURGICAL HISTORY : Bladder surgery. Pacemaker. Abscess removal in mouth. ENCOUNTER: Subsequent ACUITY: 1 day PAIN SCORE: 5/10 LOCATION: Right arm. FINDINGS: There is occlusive and nonocclusive clot identified in the right subclavian, axillary, brachial and b asilic veins. There is flow identified within the renal vein, ulnar vein. There is residual flow iden tified within the right proximal basilic vein. Nonocclusive clot identified within the right axillary vein and within the right IJ. CONCLUSION: There is extensive area of occlusive and nonocclusive clot identified within the right upper extremit y as noted above.. Tigist Vega MD on February 10, 2018 at 10:55 Board Certified Radiologist. This report was verified electronically.
[2018-02-10] MEDS ORDERED: PHARMACY ORDERED LAB ONE (11:45)
[2018-02-10] MEDS: VANCOMYCIN INJ 1,250 MG in SODIUM CHLOR 0.9% 250 ML INJ 250 ML IV SCH (11:53)
--- NOTE | 2018-02-10 15:58 | HHI.PR ---
Subjective Remarks 42-year-old female with history of lupus, Brugada syndrome, pacemaker/ defibrillator, hypothyroidism, CKD stage III, presents with concern for sternal wound infection and constant chest pain. The patient has history of syncope with Brugada syndrome, s/p pacer/AICD placement in , subsequently removed due to infection/bacteremia, now s/p replacement 3 weeks ago. She was also recently admitted 01/18-01/24 for syncope, bradycardia, SHABANA, s/p dopamine drip, then heart rate stabilized and she was cleared by cardiology. She was also discharged on bactroban ointment to apply to sternal wound which she has been compliant. She now returns to the ED with chest pain located throughout the left lower anterior chest that radiates around the left lateral thorax that began 2 weeks ago; described as constant burning pain, "feels like fire", worse with any movement. She reports chills, and a fever of 104 a few days ago, but she has been taking tylenol and ibuprofen and no recurrent fevers. Yesterday on February 05, she woke up and her sternal wound and left lateral chest was severely edematous. She rolled over to her side and the wound "opened up" with purulent drainage. She reports intermittent nausea and occasional vomiting over the past few weeks. She does report some lightheadedness, worse upon standing. Denies any shortness of breath. Her plc controls engineer is Dr. Calle. She has no other medical complaints to report at this time. 4-4 Follow up for suspected AICD infection, possible abscess. The patient reports continued bloody and purulent drainage from the distal sternal wound. She states it feels as though the fluid is coming from her AICD pocket and under the left breast. She reports continued pain and edema around the AICD at the left axillary region and under the left breast to the center of her chest. Denies fevers but does report chills overnight. Requesting regular diet. Denies any other medical complaints including lightheadedness, dizziness, shortness of breath, abdominal pain, nausea/vomiting, or diarrhea. 4-[address] CALLE, SEEN BY [facility], SEEN BY ID CONTINUED ON VANCO WANTS HER PAIN MEDICATIONS ADJUSTED 4-6 seen by infectious disease Seen by cardiovascular surgery Continue on antibiotics No new complaints Still taking breakthrough pain medications Discussed with infectious disease needs to have her AICD removed 4- AICD TO BE REMOVED ON MONDAY HAVING ISSUES WITH "STREAKING WITH MORPHINE" WILL MAKE BENADRYL AVAILABLE DW RN AND PT AND CM HARD IV ACCESS REASSURANCE GIVEN Objective Vitals Vital Signs Date Time Temp Pulse Resp B/P (MAP) Pulse Ox O2 Delivery O2 Flow Rate FiO2 02/10/18 15:29 98.3 86 18 97/51 (66) 98 02/10/18 15:29 84 02/10/18 14:51 16 02/10/18 14:02 93 02/10/18 13:11 83 02/10/18 12:53 16 02/10/18 11:15 98.2 84 18 104/55 (71) 96 02/10/18 11:15 89 02/10/18 10:01 79 02/10/18 09:08 76 02/10/18 08:51 98.0 80 18 108/78 (88) 97 02/10/18 08:51 69 02/10/18 06:00 72 02/10/18 05:00 72 02/10/18 04:00 78 02/10/18 03:35 80 16 107/57 (74) 99 02/10/18 03:00 70 02/10/18 02:00 70 02/10/18 01:00 76 02/10/18 00:00 68 02/09/18 23:00 74 02/09/18 23:00 80 16 98/54 (69) 100 02/09/18 22:00 88 02/09/18 21:00 102 02/09/18 20:00 90 02/09/18 19:00 98.4 90 16 97/63 (74) 97 02/09/18 19:00 97 02/09/18 18:02 98 02/09/18 17:58 99 02/09/18 16:25 84 I/O 02/09/18 02/09/18 02/09/18 02/10/18 02/10/18 02/10/18 07:00 15:00 23:00 07:00 15:00 23:00 Intake Total 660 ml 220 ml 720 ml 480 ml 262.5 ml Output Total 1600 ml 950 ml 1000 ml Balance -940 ml 220 ml -230 ml -520 ml 262.5 ml Intake Oral 660 ml 720 ml 480 ml IV Total 220 ml 262.5 ml Output Urine Total 1600 ml 950 ml 1000 ml # Bowel Movements 0 Result Diagram: 02/10/18 0518 02/10/18 0518 Other Results Laboratory Tests Test 02/08/18 05:00 02/08/18 05:09 02/09/18 05:27 02/09/18 18:20 Blood Urea Nitrogen 23 MG/DL 26 MG/DL Creatinine 1.36 MG/DL 1.43 MG/DL Random Glucose 99 MG/DL 110 MG/DL Calcium Level 8.5 MG/DL 8.6 MG/DL Sodium Level 143 MEQ/L 142 MEQ/L Potassium Level 3.5 MEQ/L 3.5 MEQ/L Chloride Level 110 MEQ/L 106 MEQ/L Carbon Dioxide Level 22.6 MEQ/L 26.6 MEQ/L Anion Gap 10 MEQ/L 9 MEQ/L Estimat Glomerular Filtration Rate 43 ML/MIN 40 ML/MIN White Blood Count 6.9 TH/MM3 7.2 TH/MM3 Red Blood Count 3.54 MIL/MM3 3.84 MIL/MM3 Hemoglobin 10.0 GM/DL 10.8 GM/DL Hematocrit 29.7 % 31.6 % Mean Corpuscular Volume 83.7 FL 82.2 FL Mean Corpuscular Hemoglobin 28.2 PG 28.0 PG Mean Corpuscular Hemoglobin Concent 33.7 % 34.1 % Red Cell Distribution Width 18.7 % 18.3 % Platelet Count 169 TH/MM3 171 TH/MM3 Mean Platelet Volume 7.9 FL 7.6 FL Neutrophils (%) (Auto) 49.8 % 52.1 % Lymphocytes (%) (Auto) 37.3 % 32.9 % Monocytes (%) (Auto) 8.5 % 9.2 % Eosinophils (%) (Auto) 3.6 % 4.7 % Basophils (%) (Auto) 0.8 % 1.1 % Neutrophils # (Auto) 3.4 TH/MM3 3.8 TH/MM3 Lymphocytes # (Auto) 2.6 TH/MM3 2.4 TH/MM3 Monocytes # (Auto) 0.6 TH/MM3 0.7 TH/MM3 Eosinophils # (Auto) 0.2 TH/MM3 0.3 TH/MM3 Basophils # (Auto) 0.1 TH/MM3 0.1 TH/MM3 CBC Comment DIFF FINAL DIFF FINAL Differential Comment Total Protein 6.6 GM/DL Albumin 3.0 GM/DL Phosphorus Level 4.1 MG/DL Magnesium Level 1.6 MG/DL Alkaline Phosphatase 68 U/L Aspartate Amino Transf (AST/SGOT) 12 U/L Alanine Aminotransferase (ALT/SGPT) 23 U/L Total Bilirubin 0.2 MG/DL Hemoglobin A1c 5.1 % Free Thyroxine 1.13 NG/DL Thyroid Stimulating Hormone 3rd Gen 0.033 uIU/ML Urine Color YELLOW Urine Turbidity CLEAR Urine pH 6.0 Urine Specific [place] 1.020 Urine Protein TRACE mg/dL Urine Glucose (UA) NEG mg/dL Urine Ketones NEG mg/dL Urine Occult Blood NEG Urine Nitrite NEG Urine Bilirubin NEG Urine Urobilinogen LESS THAN 2.0 MG/DL Urine Leukocyte Esterase NEG Urine RBC 1 /hpf Urine WBC 1 /hpf Urine Squamous Epithelial Cells 6 /hpf Urine Hyaline Casts 8 /lpf Microscopic Urinalysis Comment CULT NOT INDICATED Test 02/10/18 05:18 02/10/18 11:24 White Blood Count 7.0 TH/MM3 Red Blood Count 3.79 MIL/MM3 Hemoglobin 10.6 GM/DL Hematocrit 31.4 % Mean Corpuscular Volume 83.0 FL Mean Corpuscular Hemoglobin 28.0 PG Mean Corpuscular Hemoglobin Concent 33.7 % Red Cell Distribution Width 18.1 % Platelet Count 154 TH/MM3 Mean Platelet Volume 7.6 FL Neutrophils (%) (Auto) 49.6 % Lymphocytes (%) (Auto) 34.7 % Monocytes (%) (Auto) 9.9 % Eosinophils (%) (Auto) 4.9 % Basophils (%) (Auto) 0.9 % Neutrophils # (Auto) 3.5 TH/MM3 Lymphocytes # (Auto) 2.4 TH/MM3 Monocytes # (Auto) 0.7 TH/MM3 Eosinophils # (Auto) 0.3 TH/MM3 Basophils # (Auto) 0.1 TH/MM3 CBC Comment DIFF FINAL Differential Comment Blood Urea Nitrogen 26 MG/DL Creatinine 1.40 MG/DL Random Glucose 109 MG/DL Total Protein 6.4 GM/DL Albumin 3.0 GM/DL Calcium Level 8.4 MG/DL Phosphorus Level 4.7 MG/DL Magnesium Level 1.9 MG/DL Alkaline Phosphatase 72 U/L Aspartate Amino Transf (AST/SGOT) 9 U/L Alanine Aminotransferase (ALT/SGPT) 19 U/L Total Bilirubin 0.2 MG/DL Sodium Level 141 MEQ/L Potassium Level 3.3 MEQ/L Chloride Level 105 MEQ/L Carbon Dioxide Level 29.0 MEQ/L Anion Gap 7 MEQ/L Estimat Glomerular Filtration Rate 41 ML/MIN Vancomycin Level Trough 6.4 MCG/ML Imaging Last Impressions Upper Extremity Ultrasound 02/10/18 0000 Signed Impressions: Service Date/Time: Saturday, February 10, 2018 09:58 - CONCLUSION: There is extensive area of occlusive and nonocclusive clot identified within the right upper extremity as noted above.. Tigist Vega MD Soft Tissue Ultrasound 02/07/18 0000 Signed Impressions: Service Date/Time: Wednesday, February 07, 2018 11:15 - CONCLUSION: There is a dominant heterogeneous echotexture fluid collection in the left axilla measuring in excess of 7 cm which has a linear hyperechoic structure coursing through it. There are also some scattered smaller areas of fluid in the anterior chest wall all measuring 1 cm or less. Vic Smith MD Chest CT 02/06/18 0000 Signed Impressions: Service Date/Time: Tuesday, February 06, 2018 10:52 - CONCLUSION: External cardiac pacer/defibrillator with a single lead. The lead courses from the left midaxillary implanted unit and has a 90 bend cephalad at the level of the lower sternum and with an adjacent small apparent fluid collection. Otherwise mildly edematous/indurated soft tissues around the lead. No CT evidence of osteomyelitis. No acute abnormality demonstrated within the thoracic cavity. Brian Arrieta MD Chest X-Ray 02/05/18 0000 Signed Impressions: Service Date/Time: Monday, February 05, 2018 19:55 - CONCLUSION: 1. No active disease. Defibrillator wire overlies the left hemithorax anteriorly. Hay Day MD Objective Remarks GENERAL: Well-nourished, well-developed middle aged female patient in NAD. SKIN: Warm and dry. 2cm distal sternal open wound with purulent drainage, surrounding edema, tender to palpation. Left lateral axillary region with palpable subcutaneous AICD with surrounding edema, TTP, no open wounds/ drainage. HEENT: Normocephalic. Atraumatic. Pupils equal and round. Mucous membranes pink and moist. CARDIOVASCULAR: Regular rate and rhythm. No murmur appreciated. RESPIRATORY: No accessory muscle use. Clear to auscultation. Breath sounds equal bilaterally. GASTROINTESTINAL: Abdomen soft, non-tender, nondistended. Normoactive bowel sounds x4. MUSCULOSKELETAL: No obvious deformities. Extremities without clubbing, cyanosis , or edema. NEUROLOGICAL: Awake and alert. No obvious cranial nerve deficits. Motor grossly within normal limits. Normal speech. PSYCHIATRIC: Appropriate mood and affect; insight and judgment normal. Medications and IVs Current Medications Vancomycin HCl 1000 mg/Sodium Chloride 250 ml @ 250 mls/hr ONCE ONCE IV Last administered on 02/06/18at 00:16; Start 02/05/18 at 23:15; Stop 02/06/18 at 00:14; Status DC Potassium Chloride (KCl) 40 meq ONCE ONCE PO Last administered on 02/06/18at 00: 15; Start 02/05/18 at 23:15; Stop 02/05/18 at 23:18; Status DC Morphine Sulfate (Morphine Inj) 2 mg ONCE ONCE IV PUSH Last administered on 02/06/18at 01:31; Start 02/06/18 at 01:30; Stop 02/06/18 at 01:31; Status DC Ondansetron HCl (Zofran Inj) 4 mg ONCE ONCE IV PUSH Last administered on at 01:31; Start 02/06/18 at 01:30; Stop 02/06/18 at 01:31; Status DC Pharmacy Profile Note 0 ml @ 0 mls/hr UNSCH OTHER ; Start 02/06/18 at 03:15; Stop 02/06/18 at 10:04; Status DC Sodium Chloride (NS Flush) 2 ml UNSCH PRN IV FLUSH FLUSH AFTER USING IV ACCESS ; Start 02/06/18 at 03:15 Sodium Chloride (NS Flush) 2 ml BID IV FLUSH Last administered on 02/10/18at 08: 21; Start 02/06/18 at 09:00 Acetaminophen (Tylenol) 650 mg Q4H PRN PO headache/fever/pain1-2; Start at 03:15 Naloxone HCl (Narcan Inj) 0.4 mg UNSCH PRN IV PUSH SEE LABEL COMMENTS; Start at 03:15 Prednisone (Deltasone) 10 mg DAILY PO Last administered on 02/06/18at 08:07; Start 02/06/18 at 09:00; Stop 02/06/18 at 10:04; Status DC Ferrous Sulfate (Ferrous Sulfate) 325 mg BIDPC PO Last administered on 08:20; Start 02/06/18 at 09:00 Levothyroxine Sodium (Synthroid) 125 mcg DAILY@0700 PO Last administered on 02/10 05:45; Start 02/06/18 at 07:00 Magnesium Oxide (Mag-Ox) 400 mg DAILY PO Last administered on 02/10/18 08:20; Start 02/06/18 at 09:00 Pantoprazole Sodium (Protonix) 40 mg HS PO Last administered on 02/09/18 21:34 ; Start 02/06/18 at 21:00 Potassium Chloride (KCl) 40 meq TID PO Last administered on 02/10/18 12:53; Start 02/06/18 at 09:00 Potassium Phosphate (K-Phos) 500 mg PCHS PO Last administered on 02/10/18 12:53 ; Start 02/06/18 at 09:30 Spironolactone (Aldactone) 25 mg DAILY PO Last administered on 02/10/18 08:20; Start 02/06/18 at 09:00 Lorazepam (Ativan Inj) 1 mg ONCE ONCE IV PUSH Last administered on 02/06/18 07 :40; Start 02/06/18 at 08:00; Stop 02/06/18 at 08:01; Status DC Vancomycin HCl 500 mg/Sodium Chloride 100 ml @ 200 mls/hr ONCE ONCE IV Last administered on 02/06/18 09:36; Start 02/06/18 at 10:00; Stop 02/06/18 at 10:29; Status DC Diazepam (Valium) 10 mg TID PRN PO muscle spasm Last administered on 02/10/18 08:20; Start 02/06/18 at 12:00 Prednisone (Deltasone) 40 mg DAILY PO Last administered on 02/10/18 08:20; Start 02/07/18 at 09:00 Morphine Sulfate (Oramorph Sr) 15 mg Q8HR PRN PO pain 3-10 Last administered on 02/10/18 11:45; Start 02/06/18 at 12:30 Sodium Chloride 1,000 ml @ 84 mls/hr [id number] IV Last administered on 4/3/18at 12:51; Start 02/06/18 at 12:00; Stop 02/06/18 at 23:54; Status DC Iodixanol (VISIPAQUE 320 INJ (Rad CT)) 50 ml STK-MED ONCE IVCONTRAST Last administered on 02/06/18at 11:13; Start 02/06/18 at 11:13; Stop 02/06/18 at 11:14; Status DC Prednisone (Deltasone) 30 mg ONCE ONCE PO Last administered on 02/06/18at 12:49 ; Start 02/06/18 at 13:00; Stop 02/06/18 at 13:01; Status DC Pharmacy Profile Note 0 ml @ 0 mls/hr UNSCH OTHER ; Start 02/07/18 at 07:30; Stop 02/10/18 at 14:30; Status DC Vancomycin HCl 1250 mg/Sodium Chloride 262.5 ml @ 250 mls/hr Q24H IV Last administered on 02/10/18at 11:53; Start 02/07/18 at 12:00; Stop 02/10/18 at 14:30; Status DC Miscellaneous Information SPECIFIC LAB TO BE DRAWN:VANCO TROUGH DATE... ONCE ONCE .XX Last administered on 02/10/18at 11:45; Start 02/10/18 at 11:45; Stop 02/10 at 11:46; Status DC Cholecalciferol (Vitamin D3) 20,000 units DAILY PO ; Start 02/09/18 at 09:00; Stop 02/09/18 at 09:00; Status DC Cholecalciferol (Vitamin D3) 20,000 units Q72H PO Last administered on at 08:51; Start 02/09/18 at 09:00 Morphine Sulfate (Morphine Inj) 4 mg Q3H PRN IV PUSH BREAKTHROUGH PAIN Last administered on 02/10/18at 14:14; Start 02/08/18 at 13:00 Naloxone HCl (Narcan Inj) 0.4 mg UNSCH PRN IV PUSH SEE LABEL COMMENTS; Start at 13:00 Sodium Chloride (NS Flush) 2 ml BID IV FLUSH ; Start 02/09/18 at 21:00 Sodium Chloride (NS Flush) 2 ml UNSCH PRN IV FLUSH FLUSH AFTER USING IV ACCESS ; Start 02/09/18 at 16:00 Vancomycin HCl 1000 mg/Sodium Chloride 1,000 ml @ 0 mls/hr HOME ASSESSMENT NURSE IRRIGATION ; Start 02/09/18 at 16:00; Stop 02/16/18 at 15:59 Vancomycin HCl 1000 mg/Sodium Chloride 250 ml @ 250 mls/hr HOME ASSESSMENT NURSE IV ; Start 02/09/18 at 16:00; Stop 02/16/18 at 15:59 Chlorhexidine Gluconate (Hibiclens 4% Top Soln) 1 applic HOME ASSESSMENT NURSE TOPICAL ; Start 02/09/18 at 16:00; Stop 02/16/18 at 15:59 Linezolid (Zyvox) 600 mg Q12HR PO ; Start 02/10/18 at 14:30 A/P Problem List: (1) Cellulitis of chest wall ICD Code: L03.313 - Cellulitis of chest wall Status: Acute (2) SHABANA (acute kidney injury) ICD Code: N17.9 - Acute kidney failure, unspecified Assessment and Plan 42-year-old female with history of lupus, Brugada syndrome, pacemaker/ defibrillator, hypothyroidism, CKD stage III, presents with concern for sternal wound infection and constant chest pain. Recurrent AICD Infection with Sternal Wound Cellulitis: afebrile, no leukocytosis, however +tachycardia and wound with purulent drainage. CXR reviewed and unremarkable. Need to rule out abscess vs recurrent bacteremia. -Chest CT reviewed, shows external cardiac pacer/defibrillator with a single lead that courses from the left midaxillary implanted unit and has a 90deg bend cephalad at the level of the lower sternum and with an adjacent small apparent fluid collection. Otherwise mildly edematous/indurated soft tissues around the lead. No CT evidence of osteomyelitis. No acute abnormality demonstrated within the thoracic cavity. -Wound and Blood cultures collected and pending -Continue antibiotics with IV Vanco, pharmacy consulted -Tylenol prn fever, continue patient's Oramorph prn pain MORPHINE IV FOR BREAKTHRU PAIN -Consult patient's plc controls engineer Dr. Calle, likely needs AICD removal -Consult ID, discussed with Dr. Geurra, appreciate recommendations -Obtain records from previous hospitalization at , including ID Dr. Gardner notes, echo, imaging, cultures, etc. -Chest U/S and Echocardiogram ordered -Admit to inpatient and transfer to [facility] per Dr. Nemani SEEN BY [facility] AND DR CALLE Needs AICD out-SCHEDULED FOR MONDAY Positive MRSA Atypical Chest Pain: suspect secondary to infection, pain reproducible with palpation and movement -Continue patient's Oramorph 15mg q8h prn pain -monitor on telemetry Brugada Syndrome: s/p pacer/AICD -monitor on telemetry -cardiology consulted as above SHABANA on CKD stage III: suspect secondary to dehydration. Cr 1.99, previously 1.24 on 01/24/18. -give IVF hydration -monitor BMP, improving with Cr 1.24 -avoid nephrotoxins Hypokalemia: patient with chronic history of hypokalemia, on KCl 40meq tid at home. K 3.1 upon arrival -continue patient's potassium replacement -monitor BMP, give additional replacement as needed Lupus: chronic -continue patient's prednisone 40mg daily -continue pain control with patient's Oramorph 15mg q8h prn Anxiety: chronic -continue patient's valium 10mg tid prn Hypothyroidism: chronic -continue patient's Synthroid 125mcg daily CHRONIC PAIN - CONTINUE PAIN CONTROL POSSIBLE ALLERGIC REACTION BENADRYL NAUSEA ZOFRAN DVT Prophylaxis: mariano/SCDs; avoid chemoprophylaxis incase surgical intervention is indicated Discharge Planning PENDING ID AND [facility] AND DR CALLE CLEARANCE Nathaniel Sun DO Feb 10, 2018 15:58
[2018-02-10] MEDS ORDERED: ONDANSETRON HCL 4 MG/2 ML VIAL IV PUSH PRN (16:00)
[2018-02-10] MEDS ORDERED: diphenhydrAMINE HCL 50 MG CAP PO PRN (16:00)
[2018-02-10] MEDS: ONDANSETRON ODT 4 MG TAB PO PRN (16:08)
[2018-02-10] MEDS: LINEZOLID 600 MG TAB PO SCH ×2 (16:08→20:24)
[2018-02-10] MEDS ORDERED: ONDANSETRON INJ 8 MG in DEXTROSE 5% IN WATER INJ 50 ML IV PUSH PRN ×2 (16:15)
[2018-02-10] MEDS: PANTOPRAZOLE SOD 40 MG DELAYED RELEASE TAB PO SCH (20:24)
[2018-02-11] VITALS (25 sets, daily range): BP systolic 94–114; BP diastolic 56–69; PULSE 57–94; RESP 16–18; TEMP 98.2–98.6; O2SAT 97–99
[2018-02-11] MEDS: DIAZEPAM 10 MG TAB PO PRN ×3 (01:15→17:27)
[2018-02-11] MEDS: MORPHINE SULFATE 4 MG/ML INJ IV PUSH PRN ×7 (03:34→21:53)
[2018-02-11] MEDS: MORPHINE SULFATE 15 MG CONTROLLED RELEASE TAB PO PRN ×3 (04:42→20:20)
[2018-02-11] MEDS: LEVOTHYROXINE SODIUM 125 MCG TAB PO SCH (06:35)
[2018-02-11 07:29] LABS: AUTOMATED NEUTROPHIL # 3.4 TH/MM3 (1.8-7.7); BASOPHIL # 0.1 TH/MM3 (0-0.2); EOSINOPHIL # 0.3 TH/MM3 (0-0.4); EOSINOPHIL % 5.4 % (0.0-4.0); HEMATOCRIT 31.3 % (35.0-46.0); HEMOGLOBIN 10.5 GM/DL (11.6-15.3); LYMPH % 29.8 % (9.0-44.0); LYMPHOCYTE # 1.9 TH/MM3 (1.0-4.8); MEAN CELL VOLUME 83.3 FL (80.0-100.0); MEAN CORPUSCULAR HEMOGLOBIN 27.9 PG (27.0-34.0); MEAN CORPUSCULAR HGB CONC 33.5 % (32.0-36.0); MEAN PLATELET VOLUME 7.4 FL (7.0-11.0); MONO % 11.2 % (0.0-8.0); MONOCYTE # 0.7 TH/MM3 (0-0.9); NEUT % 52.6 % (16.0-70.0); PLATELET COUNT 170 TH/MM3 (150-450); RED BLOOD COUNT 3.76 MIL/MM3 (4.00-5.30); WHITE BLOOD COUNT 6.4 TH/MM3 (4.0-11.0)
[2018-02-11 08:15] LABS: ALBUMIN 2.9 GM/DL (3.4-5.0); AST (GOT) 10 U/L (15-37); BICARBONATE 28.2 MEQ/L (21.0-32.0); BLOOD UREA NITROGEN 23 MG/DL (7-18); CALCIUM 8.3 MG/DL (8.5-10.1); CHLORIDE 105 MEQ/L (98-107); GLOMERULAR FILTRATION RATE 41 ML/MIN (>89); GLUCOSE,RANDOM 78 MG/DL (74-106); MAGNESIUM 1.8 MG/DL (1.5-2.5); SODIUM (NA) 142 MEQ/L (136-145)
[2018-02-11 08:18] LABS: ALKALINE PHOSPHATASE 71 U/L (45-117); ALT (GPT) 19 U/L (10-53); TOTAL BILIRUBIN ADULT 0.2 MG/DL (0.2-1.0); TOTAL PROTEIN 6.5 GM/DL (6.4-8.2)
[2018-02-11] MEDS: FERROUS SULFATE 325 MG (65 MG ELEMENTAL IRON) TAB PO SCH ×2 (09:37→17:26)
[2018-02-11] MEDS: MAGNESIUM OXIDE 400 MG TAB PO SCH (09:37)
[2018-02-11] MEDS: POTASSIUM CHLORIDE 20 MEQ CONTROLLED RELEASE TAB PO SCH ×3 (09:37→17:26)
[2018-02-11] MEDS: LINEZOLID 600 MG TAB PO SCH ×2 (09:38→21:51)
[2018-02-11] MEDS: POTASSIUM PHOSPHATE MONOBASIC 500 MG TAB PO SCH ×4 (09:38→21:51)
[2018-02-11] MEDS: SODIUM CHLORIDE 0.9% FLUSH 10 ML FLUSH IV FLUSH SCH ×2 (09:38→21:52)
[2018-02-11] MEDS: predniSONE 20 MG TAB PO SCH (09:38)
[2018-02-11] MEDS: SPIRONOLACTONE 25 MG TAB PO SCH (09:38)
--- NOTE | 2018-02-11 12:35 | HHI.PR ---
Subjective Remarks 42-year-old female with history of lupus, Brugada syndrome, pacemaker/ defibrillator, hypothyroidism, CKD stage III, presents with concern for sternal wound infection and constant chest pain. The patient has history of syncope with Brugada syndrome, s/p pacer/AICD placement in , subsequently removed due to infection/bacteremia, now s/p replacement 3 weeks ago. She was also recently admitted 01/18-01/24 for syncope, bradycardia, SHABANA, s/p dopamine drip, then heart rate stabilized and she was cleared by cardiology. She was also discharged on bactroban ointment to apply to sternal wound which she has been compliant. She now returns to the ED with chest pain located throughout the left lower anterior chest that radiates around the left lateral thorax that began 2 weeks ago; described as constant burning pain, "feels like fire", worse with any movement. She reports chills, and a fever of 104 a few days ago, but she has been taking tylenol and ibuprofen and no recurrent fevers. Yesterday on February 05, she woke up and her sternal wound and left lateral chest was severely edematous. She rolled over to her side and the wound "opened up" with purulent drainage. She reports intermittent nausea and occasional vomiting over the past few weeks. She does report some lightheadedness, worse upon standing. Denies any shortness of breath. Her environmental education specialist is Dr. Calle. She has no other medical complaints to report at this time. 4-4 Follow up for suspected AICD infection, possible abscess. The patient reports continued bloody and purulent drainage from the distal sternal wound. She states it feels as though the fluid is coming from her AICD pocket and under the left breast. She reports continued pain and edema around the AICD at the left axillary region and under the left breast to the center of her chest. Denies fevers but does report chills overnight. Requesting regular diet. Denies any other medical complaints including lightheadedness, dizziness, shortness of breath, abdominal pain, nausea/vomiting, or diarrhea. 4-[address] CALLE, [facility], SEEN BY ID CONTINUED ON VANCO WANTS HER PAIN MEDICATIONS ADJUSTED 4-6 seen by infectious disease Seen by cardiovascular surgery Continue on antibiotics No new complaints Still taking breakthrough pain medications Discussed with infectious disease needs to have her AICD removed 02-10 AICD TO BE REMOVED ON MONDAY HAVING ISSUES WITH "STREAKING WITH MORPHINE" WILL MAKE BENADRYL AVAILABLE DW RN AND PT AND CM HARD IV ACCESS REASSURANCE GIVEN 02-11 TO HAVE AICD REMOVED THIS WEEK DW RN AND PT CONTINUE CURRENT TREATMENTS Objective Vitals Vital Signs Date Time Temp Pulse Resp B/P (MAP) Pulse Ox O2 Delivery O2 Flow Rate FiO2 02/11/18 12:07 87 02/11/18 12:07 98.2 87 16 94/66 (75) 99 02/11/18 12:00 80 02/11/18 10:13 88 02/11/18 09:45 16 02/11/18 09:00 87 02/11/18 08:30 60 02/11/18 08:30 98.4 79 16 111/69 (83) 97 02/11/18 06:00 74 02/11/18 05:00 94 02/11/18 04:00 88 02/11/18 03:30 73 16 100/60 (73) 97 02/11/18 03:00 70 02/11/18 02:00 72 02/11/18 01:00 84 02/11/18 00:06 82 16 105/60 (75) 98 02/11/18 00:00 82 02/10/18 23:00 74 02/10/18 22:00 76 02/10/18 21:00 86 02/10/18 20:00 80 02/10/18 19:45 98.6 89 16 111/63 (79) 94 02/10/18 19:00 92 02/10/18 18:16 76 02/10/18 17:08 74 02/10/18 16:20 83 02/10/18 15:29 98.3 86 18 97/51 (66) 98 02/10/18 15:29 84 02/10/18 14:02 93 02/10/18 13:11 83 02/10/18 12:53 16 I/O 02/10/18 02/10/18 02/10/18 02/11/18 02/11/18 02/11/18 07:00 15:00 23:00 07:00 15:00 23:00 Intake Total 480 ml 262.5 ml 480 ml 480 ml Output Total 1000 ml 1200 ml 600 ml Balance -520 ml 262.5 ml -720 ml -120 ml Intake Oral 480 ml 480 ml 480 ml IV Total 262.5 ml Output Urine Total 1000 ml 1200 ml 600 ml # Bowel Movements 0 2 1 Result Diagram: 02/11/18 0632 02/11/18 0622 Other Results Laboratory Tests Test 02/09/18 05:27 02/09/18 18:20 02/10/18 05:18 02/10/18 11:24 White Blood Count 7.2 TH/MM3 7.0 TH/MM3 Red Blood Count 3.84 MIL/MM3 3.79 MIL/MM3 Hemoglobin 10.8 GM/DL 10.6 GM/DL Hematocrit 31.6 % 31.4 % Mean Corpuscular Volume 82.2 FL 83.0 FL Mean Corpuscular Hemoglobin 28.0 PG 28.0 PG Mean Corpuscular Hemoglobin Concent 34.1 % 33.7 % Red Cell Distribution Width 18.3 % 18.1 % Platelet Count 171 TH/MM3 154 TH/MM3 Mean Platelet Volume 7.6 FL 7.6 FL Neutrophils (%) (Auto) 52.1 % 49.6 % Lymphocytes (%) (Auto) 32.9 % 34.7 % Monocytes (%) (Auto) 9.2 % 9.9 % Eosinophils (%) (Auto) 4.7 % 4.9 % Basophils (%) (Auto) 1.1 % 0.9 % Neutrophils # (Auto) 3.8 TH/MM3 3.5 TH/MM3 Lymphocytes # (Auto) 2.4 TH/MM3 2.4 TH/MM3 Monocytes # (Auto) 0.7 TH/MM3 0.7 TH/MM3 Eosinophils # (Auto) 0.3 TH/MM3 0.3 TH/MM3 Basophils # (Auto) 0.1 TH/MM3 0.1 TH/MM3 CBC Comment DIFF FINAL DIFF FINAL Differential Comment Blood Urea Nitrogen 26 MG/DL 26 MG/DL Creatinine 1.43 MG/DL 1.40 MG/DL Random Glucose 110 MG/DL 109 MG/DL Total Protein 6.6 GM/DL 6.4 GM/DL Albumin 3.0 GM/DL 3.0 GM/DL Calcium Level 8.6 MG/DL 8.4 MG/DL Phosphorus Level 4.1 MG/DL 4.7 MG/DL Magnesium Level 1.6 MG/DL 1.9 MG/DL Alkaline Phosphatase 68 U/L 72 U/L Aspartate Amino Transf (AST/SGOT) 12 U/L 9 U/L Alanine Aminotransferase (ALT/SGPT) 23 U/L 19 U/L Total Bilirubin 0.2 MG/DL 0.2 MG/DL Sodium Level 142 MEQ/L 141 MEQ/L Potassium Level 3.5 MEQ/L 3.3 MEQ/L Chloride Level 106 MEQ/L 105 MEQ/L Carbon Dioxide Level 26.6 MEQ/L 29.0 MEQ/L Anion Gap 9 MEQ/L 7 MEQ/L Estimat Glomerular Filtration Rate 40 ML/MIN 41 ML/MIN Hemoglobin A1c 5.1 % Free Thyroxine 1.13 NG/DL Thyroid Stimulating Hormone 3rd Gen 0.033 uIU/ML Urine Color YELLOW Urine Turbidity CLEAR Urine pH 6.0 Urine Specific [place] 1.020 Urine Protein TRACE mg/dL Urine Glucose (UA) NEG mg/dL Urine Ketones NEG mg/dL Urine Occult Blood NEG Urine Nitrite NEG Urine Bilirubin NEG Urine Urobilinogen LESS THAN 2.0 MG/DL Urine Leukocyte Esterase NEG Urine RBC 1 /hpf Urine WBC 1 /hpf Urine Squamous Epithelial Cells 6 /hpf Urine Hyaline Casts 8 /lpf Microscopic Urinalysis Comment CULT NOT INDICATED Vancomycin Level Trough 6.4 MCG/ML Test 02/11/18 06:22 02/11/18 06:32 Blood Urea Nitrogen 23 MG/DL Creatinine 1.40 MG/DL Random Glucose 78 MG/DL Total Protein 6.5 GM/DL Albumin 2.9 GM/DL Calcium Level 8.3 MG/DL Phosphorus Level 4.0 MG/DL Magnesium Level 1.8 MG/DL Alkaline Phosphatase 71 U/L Aspartate Amino Transf (AST/SGOT) 10 U/L Alanine Aminotransferase (ALT/SGPT) 19 U/L Total Bilirubin 0.2 MG/DL Sodium Level 142 MEQ/L Potassium Level 3.4 MEQ/L Chloride Level 105 MEQ/L Carbon Dioxide Level 28.2 MEQ/L Anion Gap 9 MEQ/L Estimat Glomerular Filtration Rate 41 ML/MIN White Blood Count 6.4 TH/MM3 Red Blood Count 3.76 MIL/MM3 Hemoglobin 10.5 GM/DL Hematocrit 31.3 % Mean Corpuscular Volume 83.3 FL Mean Corpuscular Hemoglobin 27.9 PG Mean Corpuscular Hemoglobin Concent 33.5 % Red Cell Distribution Width 18.0 % Platelet Count 170 TH/MM3 Mean Platelet Volume 7.4 FL Neutrophils (%) (Auto) 52.6 % Lymphocytes (%) (Auto) 29.8 % Monocytes (%) (Auto) 11.2 % Eosinophils (%) (Auto) 5.4 % Basophils (%) (Auto) 1.0 % Neutrophils # (Auto) 3.4 TH/MM3 Lymphocytes # (Auto) 1.9 TH/MM3 Monocytes # (Auto) 0.7 TH/MM3 Eosinophils # (Auto) 0.3 TH/MM3 Basophils # (Auto) 0.1 TH/MM3 CBC Comment DIFF FINAL Differential Comment Imaging Last Impressions Upper Extremity Ultrasound 02/10/18 0000 Signed Impressions: Service Date/Time: Saturday, February 10, 2018 09:58 - CONCLUSION: There is extensive area of occlusive and nonocclusive clot identified within the right upper extremity as noted above.. Tigist Vega MD Soft Tissue Ultrasound 02/07/18 0000 Signed Impressions: Service Date/Time: Wednesday, February 07, 2018 11:15 - CONCLUSION: There is a dominant heterogeneous echotexture fluid collection in the left axilla measuring in excess of 7 cm which has a linear hyperechoic structure coursing through it. There are also some scattered smaller areas of fluid in the anterior chest wall all measuring 1 cm or less. Vic Smith MD Chest CT 02/06/18 0000 Signed Impressions: Service Date/Time: Tuesday, February 06, 2018 10:52 - CONCLUSION: External cardiac pacer/defibrillator with a single lead. The lead courses from the left midaxillary implanted unit and has a 90 bend cephalad at the level of the lower sternum and with an adjacent small apparent fluid collection. Otherwise mildly edematous/indurated soft tissues around the lead. No CT evidence of osteomyelitis. No acute abnormality demonstrated within the thoracic cavity. Brian Arrieta MD Chest X-Ray 02/05/18 0000 Signed Impressions: Service Date/Time: Monday, February 05, 2018 19:55 - CONCLUSION: 1. No active disease. Defibrillator wire overlies the left hemithorax anteriorly. Hay Day MD Objective Remarks GENERAL: Well-nourished, well-developed middle aged female patient in [facility]. SKIN: Warm and dry. 2cm distal sternal open wound with purulent drainage, surrounding edema, tender to palpation. Left lateral axillary region with palpable subcutaneous AICD with surrounding edema, TTP, no open wounds/ drainage. HEENT: Normocephalic. Atraumatic. Pupils equal and round. Mucous membranes pink and moist. CARDIOVASCULAR: Regular rate and rhythm. No murmur appreciated. RESPIRATORY: No accessory muscle use. Clear to auscultation. Breath sounds equal bilaterally. GASTROINTESTINAL: Abdomen soft, non-tender, nondistended. Normoactive bowel sounds x4. MUSCULOSKELETAL: No obvious deformities. Extremities without clubbing, cyanosis , or edema. NEUROLOGICAL: Awake and alert. No obvious cranial nerve deficits. Motor grossly within normal limits. Normal speech. PSYCHIATRIC: Appropriate mood and affect; insight and judgment normal. Medications and IVs Current Medications Vancomycin HCl 1000 mg/Sodium Chloride 250 ml @ 250 mls/hr ONCE ONCE IV Last administered on 02/06/18at 00:16; Start 02/05/18 at 23:15; Stop 02/06/18 at 00:14; Status DC Potassium Chloride (KCl) 40 meq ONCE ONCE PO Last administered on 02/06/18at 00: 15; Start 02/05/18 at 23:15; Stop 02/05/18 at 23:18; Status DC Morphine Sulfate (Morphine Inj) 2 mg ONCE ONCE IV PUSH Last administered on 02/06/18at 01:31; Start 02/06/18 at 01:30; Stop 02/06/18 at 01:31; Status DC Ondansetron HCl (Zofran Inj) 4 mg ONCE ONCE IV PUSH Last administered on at 01:31; Start 02/06/18 at 01:30; Stop 02/06/18 at 01:31; Status DC Pharmacy Profile Note 0 ml @ 0 mls/hr UNSCH OTHER ; Start 02/06/18 at 03:15; Stop 02/06/18 at 10:04; Status DC Sodium Chloride (NS Flush) 2 ml UNSCH PRN IV FLUSH FLUSH AFTER USING IV ACCESS ; Start 02/06/18 at 03:15; Stop 02/10/18 at 16:11; Status DC Sodium Chloride (NS Flush) 2 ml BID IV FLUSH Last administered on 02/10/18at 08: 21; Start 02/06/18 at 09:00; Stop 02/10/18 at 16:11; Status DC Acetaminophen (Tylenol) 650 mg Q4H PRN PO headache/fever/pain1-2; Start at 03:15 Naloxone HCl (Narcan Inj) 0.4 mg UNSCH PRN IV PUSH SEE LABEL COMMENTS; Start at 03:15 Prednisone (Deltasone) 10 mg DAILY PO Last administered on 02/06/18 08:07; Start 02/06/18 at 09:00; Stop 02/06/18 at 10:04; Status DC Ferrous Sulfate (Ferrous Sulfate) 325 mg BIDPC PO Last administered on 09:37; Start 02/06/18 at 09:00 Levothyroxine Sodium (Synthroid) 125 mcg DAILY@0700 PO Last administered on 02/11 06:35; Start 02/06/18 at 07:00 Magnesium Oxide (Mag-Ox) 400 mg DAILY PO Last administered on 02/11/18 09:37; Start 02/06/18 at 09:00 Pantoprazole Sodium (Protonix) 40 mg HS PO Last administered on 02/10/18 20:24 ; Start 02/06/18 at 21:00 Potassium Chloride (KCl) 40 meq TID PO Last administered on 02/11/18 12:21; Start 02/06/18 at 09:00 Potassium Phosphate (K-Phos) 500 mg PCHS PO Last administered on 02/11/18 12:21 ; Start 02/06/18 at 09:30 Spironolactone (Aldactone) 25 mg DAILY PO Last administered on 02/11/18 09:38; Start 02/06/18 at 09:00 Lorazepam (Ativan Inj) 1 mg ONCE ONCE IV PUSH Last administered on 02/06/18 07 :40; Start 02/06/18 at 08:00; Stop 02/06/18 at 08:01; Status DC Vancomycin HCl 500 mg/Sodium Chloride 100 ml @ 200 mls/hr ONCE ONCE IV Last administered on 02/06/18 09:36; Start 02/06/18 at 10:00; Stop 02/06/18 at 10:29; Status DC Diazepam (Valium) 10 mg TID PRN PO muscle spasm Last administered on 02/11/18 09:38; Start 02/06/18 at 12:00 Prednisone (Deltasone) 40 mg DAILY PO Last administered on 02/11/18 09:38; Start 02/07/18 at 09:00 Morphine Sulfate (Oramorph Sr) 15 mg Q8HR PRN PO pain 3-10 Last administered on 02/11/18 12:22; Start 02/06/18 at 12:30 Sodium Chloride 1,000 ml @ 84 mls/hr [id number] IV Last administered on 02/06/18 12:51; Start 02/06/18 at 12:00; Stop 02/06/18 at 23:54; Status DC Iodixanol (VISIPAQUE 320 INJ (Rad CT)) 50 ml STK-MED ONCE IVCONTRAST Last administered on 02/06/18 11:13; Start 02/06/18 at 11:13; Stop 02/06/18 at 11:14; Status DC Prednisone (Deltasone) 30 mg ONCE ONCE PO Last administered on 02/06/18 12:49 ; Start 02/06/18 at 13:00; Stop 02/06/18 at 13:01; Status DC Pharmacy Profile Note 0 ml @ 0 mls/hr UNSCH OTHER ; Start 02/07/18 at 07:30; Stop 02/10/18 at 14:30; Status DC Vancomycin HCl 1250 mg/Sodium Chloride 262.5 ml @ 250 mls/hr Q24H IV Last administered on 02/10/18 11:53; Start 02/07/18 at 12:00; Stop 02/10/18 at 14:30; Status DC Miscellaneous Information SPECIFIC LAB TO BE DRAWN:VANCO TROUGH DATE... ONCE ONCE .XX Last administered on 02/10/18 11:45; Start 02/10/18 at 11:45; Stop 02/10 at 11:46; Status DC Cholecalciferol (Vitamin D3) 20,000 units DAILY PO ; Start 02/09/18 at 09:00; Stop 02/09/18 at 09:00; Status DC Cholecalciferol (Vitamin D3) 20,000 units Q72H PO Last administered on 08:51; Start 02/09/18 at 09:00 Morphine Sulfate (Morphine Inj) 4 mg Q3H PRN IV PUSH BREAKTHROUGH PAIN Last administered on 02/11/18 09:38; Start 02/08/18 at 13:00 Naloxone HCl (Narcan Inj) 0.4 mg UNSCH PRN IV PUSH SEE LABEL COMMENTS; Start at 13:00 Sodium Chloride (NS Flush) 2 ml BID IV FLUSH Last administered on 02/11/18at 09: 38; Start 02/09/18 at 21:00 Sodium Chloride (NS Flush) 2 ml UNSCH PRN IV FLUSH FLUSH AFTER USING IV ACCESS ; Start 02/09/18 at 16:00 Vancomycin HCl 1000 mg/Sodium Chloride 1,000 ml @ 0 mls/hr TUBE WASHER IRRIGATION ; Start 02/09/18 at 16:00; Stop 02/16/18 at 15:59 Vancomycin HCl 1000 mg/Sodium Chloride 250 ml @ 250 mls/hr TUBE WASHER IV ; Start 02/09/18 at 16:00; Stop 02/16/18 at 15:59 Chlorhexidine Gluconate (Hibiclens 4% Top Soln) 1 applic TUBE WASHER TOPICAL ; Start 02/09/18 at 16:00; Stop 02/16/18 at 15:59 Linezolid (Zyvox) 600 mg Q12HR PO Last administered on 02/11/18at 09:38; Start at 14:30 Ondansetron HCl (Zofran Inj) 8 mg Q6HR PRN IV PUSH NAUSEA AND NOT ABLE TO TAKE PO; Start 02/10/18 at 16:00; Status UNV Ondansetron HCl (Zofran Odt) 8 mg Q6H PRN PO NAUSEA AND ABLE TO TAKE PO Last administered on 02/10/18at 16:08; Start 02/10/18 at 16:00 Diphenhydramine HCl (Benadryl) 50 mg Q6H PRN PO ALLERIC REACTION; Start at 16:00 Ondansetron HCl 8 mg/Dextrose 54 ml @ 216 mls/hr Q6H PRN IV PUSH NAUSEA AND NOT ABLE TO TAKE PO; Start 02/10/18 at 16:15 A/P Problem List: (1) Cellulitis of chest wall ICD Code: L03.313 - Cellulitis of chest wall Status: Acute (2) SHABANA (acute kidney injury) ICD Code: N17.9 - Acute kidney failure, unspecified Assessment and Plan 42-year-old female with history of lupus, Brugada syndrome, pacemaker/ defibrillator, hypothyroidism, CKD stage III, presents with concern for sternal wound infection and constant chest pain. Recurrent AICD Infection with Sternal Wound Cellulitis: afebrile, no leukocytosis, however +tachycardia and wound with purulent drainage. CXR reviewed and unremarkable. Need to rule out abscess vs recurrent bacteremia. -Chest CT reviewed, shows external cardiac pacer/defibrillator with a single lead that courses from the left midaxillary implanted unit and has a 90deg bend cephalad at the level of the lower sternum and with an adjacent small apparent fluid collection. Otherwise mildly edematous/indurated soft tissues around the lead. No CT evidence of osteomyelitis. No acute abnormality demonstrated within the thoracic cavity. -Wound and Blood cultures collected and pending -Continue antibiotics with IV Vanco, pharmacy consulted -Tylenol prn fever, continue patient's Oramorph prn pain MORPHINE IV FOR BREAKTHRU PAIN -Consult patient's environmental education specialist Dr. Calle, likely needs AICD removal -Consult ID, discussed with Dr. Guerra, appreciate recommendations -Obtain records from previous hospitalization at , including ID Dr. Gardner notes, echo, imaging, cultures, etc. -Chest U/S and Echocardiogram ordered -Admit to inpatient and transfer to [facility] per Dr. Guerra SEEN BY [facility] AND DR CALLE Needs AICD out-SCHEDULED FOR MONDAY Positive MRSA/ [employer] [facility]- WILL DEFER TO ID Atypical Chest Pain: suspect secondary to infection, pain reproducible with palpation and movement -Continue patient's Oramorph 15mg q8h prn pain -monitor on telemetry Brugada Syndrome: s/p pacer/AICD -monitor on telemetry -cardiology consulted as above SHABANA on CKD stage III: suspect secondary to dehydration. Cr 1.99, previously 1.24 on 01/24/18. -give IVF hydration -monitor BMP, improving with Cr 1.24 -avoid nephrotoxins Hypokalemia: patient with chronic history of hypokalemia, on KCl 40meq tid at home. K 3.1 upon arrival -continue patient's potassium replacement -monitor BMP, give additional replacement as needed Lupus: chronic -continue patient's prednisone 40mg daily -continue pain control with patient's Oramorph 15mg q8h prn Anxiety: chronic -continue patient's valium 10mg tid prn Hypothyroidism: chronic -continue patient's Synthroid 125mcg daily CHRONIC PAIN - CONTINUE PAIN CONTROL POSSIBLE ALLERGIC REACTION BENADRYL NAUSEA ZOFRAN DVT Prophylaxis: mariano/SCDs; avoid chemoprophylaxis incase surgical intervention is indicated Discharge Planning PENDING ID AND [facility] AND DR CALLE CLEARANCE Nathaniel Sun DO Feb 11, 2018 12:35
[2018-02-11] MEDS ORDERED: POTASSIUM CHLORIDE 20 MEQ CONTROLLED RELEASE TAB PO ONE (13:15)
[2018-02-11] MEDS: ONDANSETRON ODT 4 MG TAB PO PRN (20:19)
[2018-02-11] MEDS: PANTOPRAZOLE SOD 40 MG DELAYED RELEASE TAB PO SCH (21:51)
[2018-02-12] VITALS (31 sets, daily range): BP systolic 103–120; BP diastolic 55–67; PULSE 52–100; RESP 14–20; TEMP 98.2–98.8; O2SAT 97–99
[2018-02-12] MEDS: DIAZEPAM 10 MG TAB PO PRN ×3 (01:55→21:03)
[2018-02-12] MEDS: MORPHINE SULFATE 4 MG/ML INJ IV PUSH PRN ×6 (01:55→20:22)
[2018-02-12] MEDS: LEVOTHYROXINE SODIUM 125 MCG TAB PO SCH (05:50)
[2018-02-12] MEDS: MORPHINE SULFATE 15 MG CONTROLLED RELEASE TAB PO PRN ×3 (05:50→22:57)
[2018-02-12 06:45] LABS: PROTHROMBIN TIME - PATIENT 9.7 SEC (9.8-11.6)
[2018-02-12 06:53] LABS: BASOPHIL # 0.1 TH/MM3 (0-0.2); BASOPHIL % 1.2 % (0.0-2.0); EOSINOPHIL # 0.4 TH/MM3 (0-0.4); EOSINOPHIL % 6.1 % (0.0-4.0); HEMATOCRIT 28.8 % (35.0-46.0); HEMOGLOBIN 9.6 GM/DL (11.6-15.3); LYMPH % 34.9 % (9.0-44.0); LYMPHOCYTE # 2.3 TH/MM3 (1.0-4.8); MEAN CELL VOLUME 83.6 FL (80.0-100.0); MEAN CORPUSCULAR HEMOGLOBIN 27.7 PG (27.0-34.0); MEAN CORPUSCULAR HGB CONC 33.2 % (32.0-36.0); MEAN PLATELET VOLUME 7.7 FL (7.0-11.0); MONO % 11.3 % (0.0-8.0); MONOCYTE # 0.7 TH/MM3 (0-0.9); NEUT % 46.5 % (16.0-70.0); PLATELET COUNT 130 TH/MM3 (150-450); RED BLOOD COUNT 3.45 MIL/MM3 (4.00-5.30); RED CELL DISTRIBUTION WIDTH 17.8 % (11.6-17.2); WHITE BLOOD COUNT 6.5 TH/MM3 (4.0-11.0)
[2018-02-12 07:06] LABS: ALBUMIN 2.6 GM/DL (3.4-5.0); AST (GOT) 12 U/L (15-37); BICARBONATE 29.9 MEQ/L (21.0-32.0); BLOOD UREA NITROGEN 22 MG/DL (7-18); CALCIUM 8.5 MG/DL (8.5-10.1); CHLORIDE 106 MEQ/L (98-107); CREATININE 1.23 MG/DL (0.50-1.00); GLOMERULAR FILTRATION RATE 48 ML/MIN (>89); GLUCOSE,RANDOM 89 MG/DL (74-106); MAGNESIUM 1.9 MG/DL (1.5-2.5); SODIUM (NA) 144 MEQ/L (136-145)
[2018-02-12 07:09] LABS: ALKALINE PHOSPHATASE 65 U/L (45-117); ALT (GPT) 19 U/L (10-53); PHOSPHORUS 3.3 MG/DL (2.5-4.9); TOTAL BILIRUBIN ADULT 0.1 MG/DL (0.2-1.0)
[2018-02-12] MEDS: SPIRONOLACTONE 25 MG TAB PO SCH (09:22)
[2018-02-12] MEDS: MAGNESIUM OXIDE 400 MG TAB PO SCH (09:22)
[2018-02-12] MEDS: LINEZOLID 600 MG TAB PO SCH ×2 (09:22→21:03)
[2018-02-12] MEDS: POTASSIUM CHLORIDE 20 MEQ CONTROLLED RELEASE TAB PO SCH ×3 (09:22→18:24)
[2018-02-12] MEDS: FERROUS SULFATE 325 MG (65 MG ELEMENTAL IRON) TAB PO SCH ×2 (09:22→18:24)
[2018-02-12] MEDS: CHOLECALCIFEROL (VIT D3) 5000 UNIT CAP PO SCH (09:22)
[2018-02-12] MEDS: predniSONE 20 MG TAB PO SCH (09:22)
[2018-02-12] MEDS: POTASSIUM PHOSPHATE MONOBASIC 500 MG TAB PO SCH ×4 (09:23→21:03)
[2018-02-12] MEDS: SODIUM CHLORIDE 0.9% FLUSH 10 ML FLUSH IV FLUSH SCH ×2 (09:26→21:00)
--- NOTE | 2018-02-12 10:25 | PD.CAR.PN ---
CVT Progress Note Subjective/Hospital Course: 42-year-old female with past medical history significant for lupus, gastroparesis, Crohn's disease, hypothyroidism, chronic kidney disease stage III , recurrent hypokalemia, anxiety, on chronic immunosuppressive and Brugada syndrome status post AICD placement October 2017 with history of previous device infection who presents to [facility] with complaints of chest pain secondary to sternal wound infection. Her ceramic tiler is Dr. Cervantes who placed an AICD device in October of 2017. Patient states she started to feel unwell the end of November. In December 2017, she was admitted to [facility], completed 1 week of IV antibiotics followed by removal of the AICD device and had a subsequent treatment of antibiotics 1 week. She then had an AICD device reimplanted and completed 1 month of IV antibiotics. Patient is unsure but thinks that she was treated with Levaquin. She was not discharged on any oral antibiotic treatment. At that time, she was managed by infectious disease physician Dr. Gardner. She was recently admitted 01/18-01/24 for syncope, bradycardia, SHABANA, s/p dopamine drip, then heart rate stabilized and she was cleared by cardiology. At that time, she had a small wound overlying the sternum and was given Bactroban at discharge. About 2 weeks ago, she began developing left axillary pain over the site of her AICD device that radiated underneath the left breast into the mid sternum. She has had a poorly healing sore over the mid chest that began to enlarge as well as increased swelling and hardness underneath the left breast. Yesterday the sore opened up with purulent drainage. She reports chills but denies any fever or sweats. She denies any cough or shortness of breath. She denies any nausea or vomiting. States that she has chronic abdominal pain secondary to Crohn's disease and gastroparesis that is unchanged. She has a history of MRSA infection left axilla many years ago but states she's been tested multiple times for MRSA since then and is always been negative. She is not sure of what her cultures were that she grew when admitted at [facility] in December with infection of the AICD device but is certain it was not MRSA. 02/09 pt still has increasing tenderness and swelling left breast and axilla pt has been seen by ID and recommend removal of ICD and leads/ Dr Cervantes agreeable and will proceed on 02/13 still having pain to ICD pacer site/ + swelling for OR tomorrow Objective: GENERAL: SKIN: Warm and dry. swelling and pain left axillary area, small amount of drainage from mid sternal wound HEAD: Normocephalic. EYES: No scleral icterus. No injection or drainage. NECK: Supple, trachea midline. No JVD or lymphadenopathy. CARDIOVASCULAR: Regular rate and rhythm without murmurs, gallops, or rubs. RESPIRATORY: Breath sounds equal bilaterally. No accessory muscle use. GASTROINTESTINAL: Abdomen soft, non-tender, nondistended. MUSCULOSKELETAL: No cyanosis, or edema. BACK: Nontender without obvious deformity. No CVA tenderness. Vital Signs Date Time Temp Pulse Resp B/P (MAP) Pulse Ox O2 Delivery O2 Flow Rate FiO2 02/12/18 08:00 68 02/12/18 07:45 98.2 70 18 106/64 (78) 98 02/12/18 07:00 63 02/12/18 06:00 72 02/12/18 05:00 72 02/12/18 04:00 80 02/12/18 03:31 72 16 104/57 (73) 99 02/12/18 03:00 70 02/12/18 02:00 78 02/12/18 01:00 72 02/12/18 00:02 52 16 103/62 (76) 97 02/12/18 00:00 76 02/11/18 23:00 79 02/11/18 22:00 88 02/11/18 21:00 72 02/11/18 20:00 98.4 79 18 101/56 (71) 98 02/11/18 20:00 80 02/11/18 19:00 94 02/11/18 18:16 93 02/11/18 17:13 92 02/11/18 16:06 86 02/11/18 15:55 16 02/11/18 15:00 98.6 89 16 114/57 (76) 98 02/11/18 15:00 78 02/11/18 14:16 81 02/11/18 13:09 79 02/11/18 12:58 16 02/11/18 12:07 87 02/11/18 12:07 98.2 87 16 94/66 (75) 99 02/11/18 12:00 80 Labs: Laboratory Tests Test 02/12/18 05:41 02/12/18 05:45 White Blood Count 6.5 TH/MM3 (4.0-11.0) Red Blood Count 3.45 MIL/MM3 (4.00-5.30) Hemoglobin 9.6 GM/DL (11.6-15.3) Hematocrit 28.8 % (35.0-46.0) Mean Corpuscular Volume 83.6 FL (80.0-100.0) Mean Corpuscular Hemoglobin 27.7 PG (27.0-34.0) Mean Corpuscular Hemoglobin Concent 33.2 % (32.0-36.0) Red Cell Distribution Width 17.8 % (11.6-17.2) Platelet Count 130 TH/MM3 (150-450) Mean Platelet Volume 7.7 FL (7.0-11.0) Neutrophils (%) (Auto) 46.5 % (16.0-70.0) Lymphocytes (%) (Auto) 34.9 % (9.0-44.0) Monocytes (%) (Auto) 11.3 % (0.0-8.0) Eosinophils (%) (Auto) 6.1 % (0.0-4.0) Basophils (%) (Auto) 1.2 % (0.0-2.0) Neutrophils # (Auto) 3.0 TH/MM3 (1.8-7.7) Lymphocytes # (Auto) 2.3 TH/MM3 (1.0-4.8) Monocytes # (Auto) 0.7 TH/MM3 (0-0.9) Eosinophils # (Auto) 0.4 TH/MM3 (0-0.4) Basophils # (Auto) 0.1 TH/MM3 (0-0.2) CBC Comment DIFF FINAL Differential Comment Prothrombin Time 9.7 SEC (9.8-11.6) Prothromb Time International Ratio 1.0 RATIO Blood Urea Nitrogen 22 MG/DL (7-18) Creatinine 1.23 MG/DL (0.50-1.00) Random Glucose 89 MG/DL (74-106) Total Protein 6.0 GM/DL (6.4-8.2) Albumin 2.6 GM/DL (3.4-5.0) Calcium Level 8.5 MG/DL (8.5-10.1) Phosphorus Level 3.3 MG/DL (2.5-4.9) Magnesium Level 1.9 MG/DL (1.5-2.5) Alkaline Phosphatase 65 U/L (45-117) Aspartate Amino Transf (AST/SGOT) 12 U/L (15-37) Alanine Aminotransferase (ALT/SGPT) 19 U/L (10-53) Total Bilirubin 0.1 MG/DL (0.2-1.0) Sodium Level 144 MEQ/L (136-145) Potassium Level 3.3 MEQ/L (3.5-5.1) Chloride Level 106 MEQ/L (98-107) Carbon Dioxide Level 29.9 MEQ/L (21.0-32.0) Anion Gap 8 MEQ/L (5-15) Estimat Glomerular Filtration Rate 48 ML/MIN (>89) Result Diagram: 02/12/18 0541 02/12/18 0545 (1) Brugada syndrome (2) Post traumatic stress disorder (PTSD) (3) Lupus (systemic lupus erythematosus) (4) AICD generator infection Plan: for removal on 02/13 (5) Infection of automatic implantable cardioverter-defibrillator lead Plan: [employer] rep notified 02/09 Tigist Rosa Feb 12, 2018 10:25
--- NOTE | 2018-02-12 12:28 | HHI.IDPN ---
Subjective Subjective Remarks is a 42-year-old female with past medical history significant for lupus, gastroparesis, Crohn's disease, hypothyroidism, chronic kidney disease stage III, recurrent hypokalemia, anxiety, on chronic immunosuppressive and Brugada syndrome status post AICD placement October 2017 with history of previous device infection who presents to [facility] with complaints of chest pain secondary to sternal wound infection. Her figurine maker is Dr. Cervantes who placed an AICD device in October of 2017. Patient states she started to feel unwell the end of November. In December 2017, she was admitted to [facility], completed 1 week of IV antibiotics followed by removal of the AICD device and had a subsequent treatment of antibiotics 1 week. She then had an AICD device reimplanted and completed 1 month of IV antibiotics. Patient is unsure but thinks that she was treated with Levaquin. She was not discharged on any oral antibiotic treatment. At that time, she was managed by infectious disease physician Dr. Gardner. She was recently admitted 01/18-01/24 for syncope, bradycardia, SHABANA, s/p dopamine drip, then heart rate stabilized and she was cleared by cardiology. At that time, she had a small wound overlying the sternum and was given Bactroban at discharge. About 2 weeks ago, she began developing left axillary pain over the site of her AICD device that radiated underneath the left breast into the mid sternum. She has had a poorly healing sore over the mid chest that began to enlarge as well as increased swelling and hardness underneath the left breast. Yesterday the sore opened up with purulent drainage. She reports chills but denies any fever or sweats. She denies any cough or shortness of breath. She denies any nausea or vomiting. States that she has chronic abdominal pain secondary to Crohn's disease and gastroparesis that is unchanged. She has a history of MRSA infection left axilla many years ago but states she's been tested multiple times for MRSA since then and is always been negative. She is not sure of what her cultures were that she grew when admitted at [facility] in December with infection of the AICD device but is certain it was not MRSA. Infectious disease has been consulted for evaluation and management of recurrent AICD device infection. Notes reviewed Patient states she continues to have left breast tenderness and states hardness under the breast is worsening She reports increased pain in the left axilla and left chest She states the midsternal open wound is not draining any more but the swelling in left breast has increased since. No fever or chills No diarrhea afebrile No leukocytosis. Antibiotics Zyvox oral. Lines Left forearm PIV without any evidence of infection Past Medical History Brugada syndrome Crohn's disease Lupus Recurrent hypokalemia Hypothyroidism Chronic kidney disease stage III Anxiety GERD Endometriosis AICD placement Oct 2017 with subsequent removal December 2017 and replacement approximately 3 weeks ago. PEG tube placement/removal Port placement and subsequent removal EGD/colonoscopies Appendectomy Laparotomies Ectopic Cystoscopie Allergies: Coded Allergies: Fish Containing Products (Unverified Allergy, Severe, SWELLING IN THROAT, SOB, 02/06/18) cephalexin (Unverified Allergy, Severe, RASH,SWELLING, 02/06/18) ketorolac (Unverified Allergy, Severe, RASH, 02/06/18) penicillin G (Unverified Allergy, Severe, RASH,SWELLING, 02/06/18) prochlorperazine (Unverified Allergy, Mild, DYSTONIC REACTION, 02/06/18) promethazine (Unverified Allergy, Mild, DYSTONIC REACTION, 02/06/18) gabapentin (Unverified Adverse Reaction, Severe, SEIZURES, 02/06/18) Objective . Vital Signs Date Time Temp Pulse Resp B/P (MAP) Pulse Ox O2 Delivery O2 Flow Rate FiO2 02/12/18 12:11 72 02/12/18 11:19 98.8 77 14 106/55 (72) 98 02/12/18 11:00 72 02/12/18 10:00 86 02/12/18 09:30 18 02/12/18 09:00 62 02/12/18 08:00 68 02/12/18 07:45 98.2 70 18 106/64 (78) 98 02/12/18 07:00 63 02/12/18 06:00 72 02/12/18 05:00 72 02/12/18 04:00 80 02/12/18 03:31 72 16 104/57 (73) 99 02/12/18 03:00 70 02/12/18 02:00 78 02/12/18 01:00 72 02/12/18 00:02 52 16 103/62 (76) 97 02/12/18 00:00 76 02/11/18 23:00 79 02/11/18 22:00 88 02/11/18 21:00 72 02/11/18 20:00 98.4 79 18 101/56 (71) 98 02/11/18 20:00 80 02/11/18 19:00 94 02/11/18 18:16 93 02/11/18 17:13 92 02/11/18 16:06 86 02/11/18 15:00 98.6 89 16 114/57 (76) 98 02/11/18 15:00 78 02/11/18 14:16 81 02/11/18 13:09 79 02/11/18 12:58 16 . Laboratory Tests Test 02/11/18 06:32 02/12/18 05:41 White Blood Count 6.4 TH/MM3 6.5 TH/MM3 Red Blood Count 3.76 MIL/MM3 3.45 MIL/MM3 Hemoglobin 10.5 GM/DL 9.6 GM/DL Hematocrit 31.3 % 28.8 % Mean Corpuscular Volume 83.3 FL 83.6 FL Mean Corpuscular Hemoglobin 27.9 PG 27.7 PG Mean Corpuscular Hemoglobin Concent 33.5 % 33.2 % Red Cell Distribution Width 18.0 % 17.8 % Platelet Count 170 TH/MM3 130 TH/MM3 Mean Platelet Volume 7.4 FL 7.7 FL Neutrophils (%) (Auto) 52.6 % 46.5 % Lymphocytes (%) (Auto) 29.8 % 34.9 % Monocytes (%) (Auto) 11.2 % 11.3 % Eosinophils (%) (Auto) 5.4 % 6.1 % Basophils (%) (Auto) 1.0 % 1.2 % Neutrophils # (Auto) 3.4 TH/MM3 3.0 TH/MM3 Lymphocytes # (Auto) 1.9 TH/MM3 2.3 TH/MM3 Monocytes # (Auto) 0.7 TH/MM3 0.7 TH/MM3 Eosinophils # (Auto) 0.3 TH/MM3 0.4 TH/MM3 Basophils # (Auto) 0.1 TH/MM3 0.1 TH/MM3 CBC Comment DIFF FINAL DIFF FINAL Differential Comment Laboratory Tests Test 02/11/18 06:22 02/12/18 05:45 Blood Urea Nitrogen 23 MG/DL 22 MG/DL Creatinine 1.40 MG/DL 1.23 MG/DL Random Glucose 78 MG/DL 89 MG/DL Total Protein 6.5 GM/DL 6.0 GM/DL Albumin 2.9 GM/DL 2.6 GM/DL Calcium Level 8.3 MG/DL 8.5 MG/DL Phosphorus Level 4.0 MG/DL 3.3 MG/DL Magnesium Level 1.8 MG/DL 1.9 MG/DL Alkaline Phosphatase 71 U/L 65 U/L Aspartate Amino Transf (AST/SGOT) 10 U/L 12 U/L Alanine Aminotransferase (ALT/SGPT) 19 U/L 19 U/L Total Bilirubin 0.2 MG/DL 0.1 MG/DL Sodium Level 142 MEQ/L 144 MEQ/L Potassium Level 3.4 MEQ/L 3.3 MEQ/L Chloride Level 105 MEQ/L 106 MEQ/L Carbon Dioxide Level 28.2 MEQ/L 29.9 MEQ/L Anion Gap 9 MEQ/L 8 MEQ/L Estimat Glomerular Filtration Rate 41 ML/MIN 48 ML/MIN Imaging Last Impressions Soft Tissue Ultrasound 02/07/18 0000 Signed Impressions: Service Date/Time: Wednesday, February 07, 2018 11:15 - CONCLUSION: There is a dominant heterogeneous echotexture fluid collection in the left axilla measuring in excess of 7 cm which has a linear hyperechoic structure coursing through it. There are also some scattered smaller areas of fluid in the anterior chest wall all measuring 1 cm or less. Vic Smith MD Chest CT 02/06/18 0000 Signed Impressions: Service Date/Time: Tuesday, February 06, 2018 10:52 - CONCLUSION: External cardiac pacer/defibrillator with a single lead. The lead courses from the left midaxillary implanted unit and has a 90 bend cephalad at the level of the lower sternum and with an adjacent small apparent fluid collection. Otherwise mildly edematous/indurated soft tissues around the lead. No CT evidence of osteomyelitis. No acute abnormality demonstrated within the thoracic cavity. Brian Arrieta MD Chest X-Ray 02/05/18 0000 Signed Impressions: Service Date/Time: Monday, February 05, 2018 19:55 - CONCLUSION: 1. No active disease. Defibrillator wire overlies the left hemithorax anteriorly. Hay Day MD Physical Exam GENERAL: This is a well-nourished, well-developed female patient, in no apparent distress. Awake and alert. Appears comfortable. SKIN: Warm and dry. Mild erythema over fourth digit of the left foot, chronic. HEENT: Normocephalic. Pupils equal round and reactive. Nose without bleeding. Airway patent. NECK: Trachea midline. No JVD. Supple. CARDIOVASCULAR: Regular rate and rhythm without murmurs, gallops, or rubs. CHEST: (+)1cm distal sternal open wound with scant amount of greenish drainage noted on dressing. Not able to express any fluid with palpation of the left breast. Mild surrounding edema, tender to palpation. Left lateral axillary region with tender palpable subcutaneous AICD device with mild edema and tenderness with induration to palpation. Tenderness and induration along the course of the lead under the left breast. Left lateral upper chest surgical incision well approximated, raised, erythematous but does not appear to be infected. Well healed area of previous port site on right anterior chest. RESPIRATORY: Clear to auscultation. Breath sounds equal bilaterally. No wheezes , rales, or rhonchi. GASTROINTESTINAL: Abdomen soft, non-tender, nondistended. Bowel Sounds normoactive x4. MUSCULOSKELETAL: Extremities without clubbing, cyanosis, or edema. NEUROLOGICAL: Awake and alert. Oriented to time, place, person. No focal neuro deficit. Moves all extremities. Normal speech. PSYCHIATRIC: Appropriate mood and affect. Normal insight and judgment. Assessment & Plan Remarks Recurrent AICD/lead infection -No evidence of septic emboli on CT of the chest -Chest CT showed external cardiac pacer/defibrillator with a single lead. Courses from the left mid axillary unit and has 96, at the level of the lower external an adjacent small apparent fluid collection. Otherwise the edematous/ soft tissue around. Evidence of osteomyelitis. No acute abdomen demonstrated within the thoracic -Drainage tracking when breast is palpated towards the midsternal incision site -Echocardiogram showed EF 60%, left ventricular systolic function grossly normal, left atrial size mildly dilated, atrial size mildly dilated, mild MVR. Trace TVR. Structurally normal tricuspid valve and mitral valve. -Patient was diagnosed with bacterial [facility] it was treated with ceftriaxone and switch over to vancomycin for enterococcal bacteremia. Patient grew strep and enterococcus faecalis during that time. -Blood cultures no growth to date -02/05/18 wound culture staph aureus MRSA Immunocompromised with chronic prednisone use Crohn's disease Lupus Hypothyroidism Recommendations: Continue oral zyvox. Follow wound cultures AICD removal planned for am. Please send intraop cultures for Bacterial, Fungal and AFB stains and cultures. Will need Life Vest on discharge eventually. Do not anticipate IV antibiotics at present time. Lay Guerra MD Feb 12, 2018 12:28
--- NOTE | 2018-02-12 14:42 | HHI.PR ---
Subjective Remarks 42-year-old female with history of lupus, Brugada syndrome, pacemaker/ defibrillator, hypothyroidism, CKD stage III, presents with concern for sternal wound infection and constant chest pain. The patient has history of syncope with Brugada syndrome, s/p pacer/AICD placement in , subsequently removed due to infection/bacteremia, now s/p replacement 3 weeks ago. She was also recently admitted 01/18-01/24 for syncope, bradycardia, SHABANA, s/p dopamine drip, then heart rate stabilized and she was cleared by cardiology. She was also discharged on bactroban ointment to apply to sternal wound which she has been compliant. She now returns to the ED with chest pain located throughout the left lower anterior chest that radiates around the left lateral thorax that began 2 weeks ago; described as constant burning pain, "feels like fire", worse with any movement. She reports chills, and a fever of 104 a few days ago, but she has been taking tylenol and ibuprofen and no recurrent fevers. Yesterday on February 05, she woke up and her sternal wound and left lateral chest was severely edematous. She rolled over to her side and the wound "opened up" with purulent drainage. She reports intermittent nausea and occasional vomiting over the past few weeks. She does report some lightheadedness, worse upon standing. Denies any shortness of breath. Her project manager entertainment and media is Dr. Calle. She has no other medical complaints to report at this time. 4-4 Follow up for suspected AICD infection, possible abscess. The patient reports continued bloody and purulent drainage from the distal sternal wound. She states it feels as though the fluid is coming from her AICD pocket and under the left breast. She reports continued pain and edema around the AICD at the left axillary region and under the left breast to the center of her chest. Denies fevers but does report chills overnight. Requesting regular diet. Denies any other medical complaints including lightheadedness, dizziness, shortness of breath, abdominal pain, nausea/vomiting, or diarrhea. 4-[address] CALLE, [facility]EN [facility], SEEN BY ID CONTINUED ON VANCO WANTS HER PAIN MEDICATIONS ADJUSTED 4-6 seen by infectious disease Seen by cardiovascular surgery Continue on antibiotics No new complaints Still taking breakthrough pain medications Discussed with infectious disease needs to have her AICD removed 4- AICD TO BE REMOVED ON MONDAY HAVING ISSUES WITH "STREAKING WITH MORPHINE" WILL MAKE BENADRYL AVAILABLE DW RN AND PT AND CM HARD IV ACCESS REASSURANCE GIVEN - TO HAVE AICD REMOVED THIS WEEK DW RN AND PT CONTINUE CURRENT TREATMENTS 4- PATIENT COMPLAINS OF PAIN IN CHEST AREA DRUG SEEKING BEHAVIOR- LOOKS COMFORTABLE BUT IS ASKING FOR MORE IV PAIN MEDS DW RN AND PT AND ID AND CM AND [facility] FOR [facility]GERY TOMORROW WILL NOT INCREASE HER PAIN MEDICATIONS- LOOKED COMFORTABLE WHEN COMPLAINING OF PAIN- DID NOT APPEAR UNCOMFORTABLE AT ALL AM LABS Objective Vitals Vital Signs Date Time Temp Pulse Resp B/P (MAP) Pulse Ox O2 Delivery O2 Flow Rate FiO2 02/12/18 13:18 16 02/12/18 11:19 98.8 77 14 106/55 (72) 98 02/12/18 11:01 72 02/12/18 10:00 86 02/12/18 09:00 62 02/12/18 08:00 68 02/12/18 07:45 98.2 70 18 106/64 (78) 98 02/12/18 07:00 63 02/12/18 06:00 72 02/12/18 05:00 72 02/12/18 04:00 80 02/12/18 03:31 72 16 104/57 (73) 99 02/12/18 03:00 70 02/12/18 02:00 78 02/12/18 01:00 72 02/12/18 00:02 52 16 103/62 (76) 97 02/12/18 00:00 76 02/11/18 23:00 79 02/11/18 22:00 88 02/11/18 21:00 72 02/11/18 20:00 98.4 79 18 101/56 (71) 98 02/11/18 20:00 80 02/11/18 19:00 94 02/11/18 18:16 93 02/11/18 17:13 92 02/11/18 16:06 86 02/11/18 15:00 98.6 89 16 114/57 (76) 98 02/11/18 15:00 78 I/O 02/11/18 02/11/18 02/11/18 02/12/18 02/12/18 02/12/18 07:00 15:00 23:00 07:00 15:00 23:00 Intake Total 480 ml 480 ml 480 ml Output Total 600 ml 800 ml 1000 ml Balance -120 ml -320 ml -520 ml Intake Oral 480 ml 480 ml 480 ml Output Urine Total 600 ml 800 ml 1000 ml # Bowel Movements 1 1 0 Result Diagram: 02/12/18 0541 02/12/18 0545 Other Results Laboratory Tests Test 02/09/18 18:20 02/10/18 05:18 02/10/18 11:24 02/11/18 06:22 Urine Color YELLOW Urine Turbidity CLEAR Urine pH 6.0 Urine Specific Dike 1.020 Urine Protein TRACE mg/dL Urine Glucose (UA) NEG mg/dL Urine Ketones NEG mg/dL Urine Occult Blood NEG Urine Nitrite NEG Urine Bilirubin NEG Urine Urobilinogen LESS THAN 2.0 MG/DL Urine Leukocyte Esterase NEG Urine RBC 1 /hpf Urine WBC 1 /hpf Urine Squamous Epithelial Cells 6 /hpf Urine Hyaline Casts 8 /lpf Microscopic Urinalysis Comment CULT NOT INDICATED White Blood Count 7.0 TH/MM3 Red Blood Count 3.79 MIL/MM3 Hemoglobin 10.6 GM/DL Hematocrit 31.4 % Mean Corpuscular Volume 83.0 FL Mean Corpuscular Hemoglobin 28.0 PG Mean Corpuscular Hemoglobin Concent 33.7 % Red Cell Distribution Width 18.1 % Platelet Count 154 TH/MM3 Mean Platelet Volume 7.6 FL Neutrophils (%) (Auto) 49.6 % Lymphocytes (%) (Auto) 34.7 % Monocytes (%) (Auto) 9.9 % Eosinophils (%) (Auto) 4.9 % Basophils (%) (Auto) 0.9 % Neutrophils # (Auto) 3.5 TH/MM3 Lymphocytes # (Auto) 2.4 TH/MM3 Monocytes # (Auto) 0.7 TH/MM3 Eosinophils # (Auto) 0.3 TH/MM3 Basophils # (Auto) 0.1 TH/MM3 CBC Comment DIFF FINAL Differential Comment Blood Urea Nitrogen 26 MG/DL 23 MG/DL Creatinine 1.40 MG/DL 1.40 MG/DL Random Glucose 109 MG/DL 78 MG/DL Total Protein 6.4 GM/DL 6.5 GM/DL Albumin 3.0 GM/DL 2.9 GM/DL Calcium Level 8.4 MG/DL 8.3 MG/DL Phosphorus Level 4.7 MG/DL 4.0 MG/DL Magnesium Level 1.9 MG/DL 1.8 MG/DL Alkaline Phosphatase 72 U/L 71 U/L Aspartate Amino Transf (AST/SGOT) 9 U/L 10 U/L Alanine Aminotransferase (ALT/SGPT) 19 U/L 19 U/L Total Bilirubin 0.2 MG/DL 0.2 MG/DL Sodium Level 141 MEQ/L 142 MEQ/L Potassium Level 3.3 MEQ/L 3.4 MEQ/L Chloride Level 105 MEQ/L 105 MEQ/L Carbon Dioxide Level 29.0 MEQ/L 28.2 MEQ/L Anion Gap 7 MEQ/L 9 MEQ/L Estimat Glomerular Filtration Rate 41 ML/MIN 41 ML/MIN Vancomycin Level Trough 6.4 MCG/ML Test 02/11/18 06:32 02/12/18 05:41 02/12/18 05:45 White Blood Count 6.4 TH/MM3 6.5 TH/MM3 Red Blood Count 3.76 MIL/MM3 3.45 MIL/MM3 Hemoglobin 10.5 GM/DL 9.6 GM/DL Hematocrit 31.3 % 28.8 % Mean Corpuscular Volume 83.3 FL 83.6 FL Mean Corpuscular Hemoglobin 27.9 PG 27.7 PG Mean Corpuscular Hemoglobin Concent 33.5 % 33.2 % Red Cell Distribution Width 18.0 % 17.8 % Platelet Count 170 TH/MM3 130 TH/MM3 Mean Platelet Volume 7.4 FL 7.7 FL Neutrophils (%) (Auto) 52.6 % 46.5 % Lymphocytes (%) (Auto) 29.8 % 34.9 % Monocytes (%) (Auto) 11.2 % 11.3 % Eosinophils (%) (Auto) 5.4 % 6.1 % Basophils (%) (Auto) 1.0 % 1.2 % Neutrophils # (Auto) 3.4 TH/MM3 3.0 TH/MM3 Lymphocytes # (Auto) 1.9 TH/MM3 2.3 TH/MM3 Monocytes # (Auto) 0.7 TH/MM3 0.7 TH/MM3 Eosinophils # (Auto) 0.3 TH/MM3 0.4 TH/MM3 Basophils # (Auto) 0.1 TH/MM3 0.1 TH/MM3 CBC Comment DIFF FINAL DIFF FINAL Differential Comment Prothrombin Time 9.7 SEC Prothromb Time International Ratio 1.0 RATIO Blood Urea Nitrogen 22 MG/DL Creatinine 1.23 MG/DL Random Glucose 89 MG/DL Total Protein 6.0 GM/DL Albumin 2.6 GM/DL Calcium Level 8.5 MG/DL Phosphorus Level 3.3 MG/DL Magnesium Level 1.9 MG/DL Alkaline Phosphatase 65 U/L Aspartate Amino Transf (AST/SGOT) 12 U/L Alanine Aminotransferase (ALT/SGPT) 19 U/L Total Bilirubin 0.1 MG/DL Sodium Level 144 MEQ/L Potassium Level 3.3 MEQ/L Chloride Level 106 MEQ/L Carbon Dioxide Level 29.9 MEQ/L Anion Gap 8 MEQ/L Estimat Glomerular Filtration Rate 48 ML/MIN Imaging Last Impressions Upper Extremity Ultrasound 02/10/18 0000 Signed Impressions: Service Date/Time: Saturday, February 10, 2018 09:58 - CONCLUSION: There is extensive area of occlusive and nonocclusive clot identified within the right upper extremity as noted above.. Tigist Vega MD Soft Tissue Ultrasound 02/07/18 0000 Signed Impressions: Service Date/Time: Wednesday, February 07, 2018 11:15 - CONCLUSION: There is a dominant heterogeneous echotexture fluid collection in the left axilla measuring in excess of 7 cm which has a linear hyperechoic structure coursing through it. There are also some scattered smaller areas of fluid in the anterior chest wall all measuring 1 cm or less. Vic Smith MD Chest CT 02/06/18 0000 Signed Impressions: Service Date/Time: Tuesday, February 06, 2018 10:52 - CONCLUSION: External cardiac pacer/defibrillator with a single lead. The lead courses from the left midaxillary implanted unit and has a 90 bend cephalad at the level of the lower sternum and with an adjacent small apparent fluid collection. Otherwise mildly edematous/indurated soft tissues around the lead. No CT evidence of osteomyelitis. No acute abnormality demonstrated within the thoracic cavity. Brian Arrieta MD Chest X-Ray 02/05/18 0000 Signed Impressions: Service Date/Time: Monday, February 05, 2018 19:55 - CONCLUSION: 1. No active disease. Defibrillator wire overlies the left hemithorax anteriorly. Hay Day MD Objective Remarks GENERAL: Well-nourished, well-developed middle aged female patient in NAD. SKIN: Warm and dry. 2cm distal sternal open wound with purulent drainage, surrounding edema, tender to palpation. Left lateral axillary region with palpable subcutaneous AICD with surrounding edema, TTP, no open wounds/ drainage. HEENT: Normocephalic. Atraumatic. Pupils equal and round. Mucous membranes pink and moist. CARDIOVASCULAR: Regular rate and rhythm. No murmur appreciated. RESPIRATORY: No accessory muscle use. Clear to auscultation. Breath sounds equal bilaterally. GASTROINTESTINAL: Abdomen soft, non-tender, nondistended. Normoactive bowel sounds x4. MUSCULOSKELETAL: No obvious deformities. Extremities without clubbing, cyanosis , or edema. NEUROLOGICAL: Awake and alert. No obvious cranial nerve deficits. Motor grossly within normal limits. Normal speech. PSYCHIATRIC: Appropriate mood and affect; insight and judgment normal. Medications and IVs Current Medications Vancomycin HCl 1000 mg/Sodium Chloride 250 ml @ 250 mls/hr ONCE ONCE IV Last administered on 02/06/18at 00:16; Start 02/05/18 at 23:15; Stop 02/06/18 at 00:14; Status DC Potassium Chloride (KCl) 40 meq ONCE ONCE PO Last administered on 02/06/18at 00: 15; Start 02/05/18 at 23:15; Stop 02/05/18 at 23:18; Status DC Morphine Sulfate (Morphine Inj) 2 mg ONCE ONCE IV PUSH Last administered on 02/06/18at 01:31; Start 02/06/18 at 01:30; Stop 02/06/18 at 01:31; Status DC Ondansetron HCl (Zofran Inj) 4 mg ONCE ONCE IV PUSH Last administered on at :31; Start 02/06/18 at 01:30; Stop 02/06/18 at 01:31; Status DC Pharmacy Profile Note 0 ml @ 0 mls/hr UNSCH OTHER ; Start 02/06/18 at 03:15; Stop 02/06/18 at 10:04; Status DC Sodium Chloride (NS Flush) 2 ml UNSCH PRN IV FLUSH FLUSH AFTER USING IV ACCESS ; Start 02/06/18 at 03:15; Stop 02/10/18 at 16:11; Status DC Sodium Chloride (NS Flush) 2 ml BID IV FLUSH Last administered on 02/10/18at 08: 21; Start 02/06/18 at 09:00; Stop 02/10/18 at 16:11; Status DC Acetaminophen (Tylenol) 650 mg Q4H PRN PO headache/fever/pain1-2; Start at 03:15 Naloxone HCl (Narcan Inj) 0.4 mg UNSCH PRN IV PUSH SEE LABEL COMMENTS; Start at 03:15 Prednisone (Deltasone) 10 mg DAILY PO Last administered on 02/06/18 08:07; Start 02/06/18 at 09:00; Stop 02/06/18 at 10:04; Status DC Ferrous Sulfate (Ferrous Sulfate) 325 mg BIDPC PO Last administered on 09:22; Start 02/06/18 at 09:00 Levothyroxine Sodium (Synthroid) 125 mcg DAILY@0700 PO Last administered on 02/12 05:50; Start 02/06/18 at 07:00 Magnesium Oxide (Mag-Ox) 400 mg DAILY PO Last administered on 02/12/18 09:22; Start 02/06/18 at 09:00 Pantoprazole Sodium (Protonix) 40 mg HS PO Last administered on 02/11/18 21:51 ; Start 02/06/18 at 21:00 Potassium Chloride (KCl) 40 meq TID PO Last administered on 02/12/18 14:01; Start 02/06/18 at 09:00 Potassium Phosphate (K-Phos) 500 mg PCHS PO Last administered on 02/12/18 14:02 ; Start 02/06/18 at 09:30 Spironolactone (Aldactone) 25 mg DAILY PO Last administered on 02/12/18 09:22; Start 02/06/18 at 09:00 Lorazepam (Ativan Inj) 1 mg ONCE ONCE IV PUSH Last administered on 02/06/18 07 :40; Start 02/06/18 at 08:00; Stop 02/06/18 at 08:01; Status DC Vancomycin HCl 500 mg/Sodium Chloride 100 ml @ 200 mls/hr ONCE ONCE IV Last administered on 02/06/18 09:36; Start 02/06/18 at 10:00; Stop 02/06/18 at 10:29; Status DC Diazepam (Valium) 10 mg TID PRN PO muscle spasm Last administered on 02/12/18at 10:08; Start 02/06/18 at 12:00 Prednisone (Deltasone) 40 mg DAILY PO Last administered on 02/12/18 09:22; Start 02/07/18 at 09:00 Morphine Sulfate (Oramorph Sr) 15 mg Q8HR PRN PO pain 3-10 Last administered on 02/12/18 14:01; Start 02/06/18 at 12:30 Sodium Chloride 1,000 ml @ 84 mls/hr [id number] IV Last administered on 02/06/18 12:51; Start 02/06/18 at 12:00; Stop 02/06/18 at 23:54; Status DC Iodixanol (VISIPAQUE 320 INJ (Rad CT)) 50 ml STK-MED ONCE IVCONTRAST Last administered on 02/06/18 11:13; Start 02/06/18 at 11:13; Stop 02/06/18 at 11:14; Status DC Prednisone (Deltasone) 30 mg ONCE ONCE PO Last administered on 02/06/18 12:49 ; Start 02/06/18 at 13:00; Stop 02/06/18 at 13:01; Status DC Pharmacy Profile Note 0 ml @ 0 mls/hr UNSCH OTHER ; Start 02/07/18 at 07:30; Stop 02/10/18 at 14:30; Status DC Vancomycin HCl 1250 mg/Sodium Chloride 262.5 ml @ 250 mls/hr Q24H IV Last administered on 02/10/18 11:53; Start 02/07/18 at 12:00; Stop 02/10/18 at 14:30; Status DC Miscellaneous Information SPECIFIC LAB TO BE DRAWN:VANCO TROUGH DATE... ONCE ONCE .XX Last administered on 02/10/18 11:45; Start 02/10/18 at 11:45; Stop 02/10 at 11:46; Status DC Cholecalciferol (Vitamin D3) 20,000 units DAILY PO ; Start 02/09/18 at 09:00; Stop 02/09/18 at 09:00; Status DC Cholecalciferol (Vitamin D3) 20,000 units Q72H PO Last administered on 09:22; Start 02/09/18 at 09:00 Morphine Sulfate (Morphine Inj) 4 mg Q3H PRN IV PUSH BREAKTHROUGH PAIN Last administered on 02/12/18at 13:13; Start 02/08/18 at 13:00 Naloxone HCl (Narcan Inj) 0.4 mg UNSCH PRN IV PUSH SEE LABEL COMMENTS; Start at 13:00 Sodium Chloride (NS Flush) 2 ml BID IV FLUSH Last administered on 02/12/18at 09: 26; Start 02/09/18 at 21:00 Sodium Chloride (NS Flush) 2 ml UNSCH PRN IV FLUSH FLUSH AFTER USING IV ACCESS ; Start 02/09/18 at 16:00 Vancomycin HCl 1000 mg/Sodium Chloride 1,000 ml @ 0 mls/hr [employer] IRRIGATION ; Start 02/09/18 at 16:00; Stop 02/16/18 at 15:59 Vancomycin HCl 1000 mg/Sodium Chloride 250 ml @ 250 mls/hr [employer] IV ; Start 02/09/18 at 16:00; Stop 02/16/18 at 15:59 Chlorhexidine Gluconate (Hibiclens 4% Top Soln) 1 applic [employer] TOPICAL ; Start 02/09/18 at 16:00; Stop 02/16/18 at 15:59 Linezolid (Zyvox) 600 mg Q12HR PO Last administered on 02/12/18at 09:22; Start at 14:30 Ondansetron HCl (Zofran Inj) 8 mg Q6HR PRN IV PUSH NAUSEA AND NOT ABLE TO TAKE PO; Start 02/10/18 at 16:00; Status UNV Ondansetron HCl (Zofran Odt) 8 mg Q6H PRN PO NAUSEA AND ABLE TO TAKE PO Last administered on 02/11/18at 20:19; Start 02/10/18 at 16:00 Diphenhydramine HCl (Benadryl) 50 mg Q6H PRN PO ALLERIC REACTION; Start at 16:00 Ondansetron HCl 8 mg/Dextrose 54 ml @ 216 mls/hr Q6H PRN IV PUSH NAUSEA AND NOT ABLE TO TAKE PO; Start 02/10/18 at 16:15 Potassium Chloride (KCl) 60 meq ONCE ONCE PO Last administered on 02/11/18at 12: 53; Start 02/11/18 at 13:15; Stop 02/11/18 at 13:16; Status DC A/P Problem List: (1) Cellulitis of chest wall ICD Code: L03.313 - Cellulitis of chest wall Status: Acute (2) SHABANA (acute kidney injury) ICD Code: N17.9 - Acute kidney failure, unspecified Assessment and Plan 42-year-old female with history of lupus, Brugada syndrome, pacemaker/ defibrillator, hypothyroidism, CKD stage III, presents with concern for sternal wound infection and constant chest pain. Recurrent AICD Infection with Sternal Wound Cellulitis: afebrile, no leukocytosis, however +tachycardia and wound with purulent drainage. CXR reviewed and unremarkable. Need to rule out abscess vs recurrent bacteremia. -Chest CT reviewed, shows external cardiac pacer/defibrillator with a single lead that courses from the left midaxillary implanted unit and has a 90deg bend cephalad at the level of the lower sternum and with an adjacent small apparent fluid collection. Otherwise mildly edematous/indurated soft tissues around the lead. No CT evidence of osteomyelitis. No acute abnormality demonstrated within the thoracic cavity. -Wound and Blood cultures collected and pending -Continue antibiotics with IV Vanco, pharmacy consulted -Tylenol prn fever, continue patient's Oramorph prn pain MORPHINE IV FOR BREAKTHRU PAIN -Consult patient's project manager entertainment and media Dr. Calle, likely needs AICD removal -Consult ID, discussed with Dr. Guerra, appreciate recommendations -Obtain records from previous hospitalization at , including ID Dr. Gardner notes, echo, imaging, cultures, etc. -Chest U/S and Echocardiogram ordered -Admit to inpatient and transfer to [facility] per Dr. Guerra SEEN BY [facility] AND DR CALLE Needs AICD out-SCHEDULED FOR MONDAY Positive MRSA/ [employer]- WILL DEFER TO ID Atypical Chest Pain: suspect secondary to infection, pain reproducible with palpation and movement -Continue patient's Oramorph 15mg q8h prn pain -monitor on telemetry Brugada Syndrome: s/p pacer/AICD -monitor on telemetry -cardiology consulted as above SHABANA on CKD stage III: suspect secondary to dehydration. Cr 1.99, previously 1.24 on 01/24/18. -give IVF hydration -monitor BMP, improving with Cr 1.24 -avoid nephrotoxins Hypokalemia: patient with chronic history of hypokalemia, on KCl 40meq tid at home. K 3.1 upon arrival -continue patient's potassium replacement -monitor BMP, give additional replacement as needed Lupus: chronic -continue patient's prednisone 40mg daily -continue pain control with patient's Oramorph 15mg q8h prn Anxiety: chronic -continue patient's valium 10mg tid prn Hypothyroidism: chronic -continue patient's Synthroid 125mcg daily CHRONIC PAIN - CONTINUE PAIN CONTROL POSSIBLE ALLERGIC REACTION BENADRYL NAUSEA ZOFRAN DVT Prophylaxis: mariano/SCDs; avoid chemoprophylaxis incase surgical intervention is indicated Discharge Planning PENDING ID AND [facility] AND DR CALLE CLEARANCE Nathaniel Sun DO Feb 12, 2018 14:42
[2018-02-12] MEDS ORDERED: POTASSIUM CHLORIDE 20 MEQ CONTROLLED RELEASE TAB PO ONE (14:45)
[2018-02-12] MEDS: PANTOPRAZOLE SOD 40 MG DELAYED RELEASE TAB PO SCH (21:03)
[2018-02-12] MEDS: ONDANSETRON ODT 4 MG TAB PO PRN (22:56)
[2018-02-13] VITALS (15 sets, daily range): BP systolic 93–114; BP diastolic 58–73; PULSE 64–82; RESP 16–18; TEMP 98.1–98.2; O2SAT 97–99
[2018-02-13] MEDS: MORPHINE SULFATE 4 MG/ML INJ IV PUSH PRN ×5 (01:03→20:08)
[2018-02-13] MEDS: LEVOTHYROXINE SODIUM 125 MCG TAB PO SCH (04:48)
[2018-02-13] MEDS: DIAZEPAM 10 MG TAB PO PRN ×2 (05:21→16:58)
[2018-02-13 08:00] LABS: AUTOMATED NEUTROPHIL # 3.2 TH/MM3 (1.8-7.7); BASOPHIL # 0.1 TH/MM3 (0-0.2); EOSINOPHIL # 0.3 TH/MM3 (0-0.4); EOSINOPHIL % 5.2 % (0.0-4.0); HEMATOCRIT 31.8 % (35.0-46.0); HEMOGLOBIN 10.5 GM/DL (11.6-15.3); LYMPH % 33.5 % (9.0-44.0); LYMPHOCYTE # 2.1 TH/MM3 (1.0-4.8); MEAN CELL VOLUME 84.1 FL (80.0-100.0); MEAN CORPUSCULAR HEMOGLOBIN 27.8 PG (27.0-34.0); MEAN CORPUSCULAR HGB CONC 33.1 % (32.0-36.0); MEAN PLATELET VOLUME 6.7 FL (7.0-11.0); MONO % 9.7 % (0.0-8.0); MONOCYTE # 0.6 TH/MM3 (0-0.9); NEUT % 50.6 % (16.0-70.0); PLATELET COUNT 156 TH/MM3 (150-450); RED BLOOD COUNT 3.78 MIL/MM3 (4.00-5.30); RED CELL DISTRIBUTION WIDTH 17.7 % (11.6-17.2); WHITE BLOOD COUNT 6.3 TH/MM3 (4.0-11.0)
[2018-02-13] MEDS: LINEZOLID 600 MG TAB PO SCH ×2 (08:06→20:07)
[2018-02-13] MEDS: SPIRONOLACTONE 25 MG TAB PO SCH (08:08)
[2018-02-13] MEDS: MAGNESIUM OXIDE 400 MG TAB PO SCH (08:08)
[2018-02-13] MEDS: FERROUS SULFATE 325 MG (65 MG ELEMENTAL IRON) TAB PO SCH ×2 (08:08→18:07)
[2018-02-13] MEDS: predniSONE 20 MG TAB PO SCH (08:08)
[2018-02-13] MEDS: POTASSIUM PHOSPHATE MONOBASIC 500 MG TAB PO SCH ×4 (08:08→20:07)
[2018-02-13] MEDS: POTASSIUM CHLORIDE 20 MEQ CONTROLLED RELEASE TAB PO SCH ×3 (08:09→18:07)
[2018-02-13] MEDS: MORPHINE SULFATE 15 MG CONTROLLED RELEASE TAB PO PRN ×2 (08:22→18:07)
[2018-02-13 08:34] LABS: ALBUMIN 2.8 GM/DL (3.4-5.0); AST (GOT) 13 U/L (15-37); BICARBONATE 31.2 MEQ/L (21.0-32.0); BLOOD UREA NITROGEN 19 MG/DL (7-18); CALCIUM 8.5 MG/DL (8.5-10.1); CHLORIDE 105 MEQ/L (98-107); CREATININE 1.17 MG/DL (0.50-1.00); GLOMERULAR FILTRATION RATE 51 ML/MIN (>89); GLUCOSE,RANDOM 97 MG/DL (74-106); SODIUM (NA) 141 MEQ/L (136-145)
[2018-02-13 08:38] LABS: ALKALINE PHOSPHATASE 70 U/L (45-117); ALT (GPT) 22 U/L (10-53); PHOSPHORUS 3.9 MG/DL (2.5-4.9); TOTAL BILIRUBIN ADULT 0.1 MG/DL (0.2-1.0); TOTAL PROTEIN 6.5 GM/DL (6.4-8.2)
[2018-02-13] MEDS: SODIUM CHLORIDE 0.9% FLUSH 10 ML FLUSH IV FLUSH SCH ×2 (09:00→20:09)
--- NOTE | 2018-02-13 11:40 | EKG ---
Date Performed: 02/13/2018 Time Performed: 09:20:18 PTAGE: 42 years EKG: Sinus bradycardia Prolonged QT interval Borderline ECG Compared to prior electrocardiogram, rate has decreased PREVIOUS TRACING : 02/05/2018 23.23 DOCTOR: Shine Galvan Interpretating Date/Time 02/13/2018 11:39:06
[2018-02-13] MEDS ORDERED: BUPIVACAINE HCL PF 0.5% 30 ML VIAL ONE (13:48)
[2018-02-13] MEDS ORDERED: SUGAMMADEX SODIUM 200 MG/2 ML VIAL IV PUSH ONE (13:52)
[2018-02-13] MEDS ORDERED: ACETAMINOPHEN 1000 MG/100 ML 100 ML IV ONE (13:53)
[2018-02-13] MEDS ORDERED: VANCOMYCIN HCL 1000 MG VIAL ONE (13:55)
--- NOTE | 2018-02-13 15:23 | HHI.PR ---
Subjective Remarks 42-year-old female with history of lupus, Brugada syndrome, pacemaker/ defibrillator, hypothyroidism, CKD stage III, presents with concern for sternal wound infection and constant chest pain. The patient has history of syncope with Brugada syndrome, s/p pacer/AICD placement in , subsequently removed due to infection/bacteremia, now s/p replacement 3 weeks ago. She was also recently admitted 01/18-01/24 for syncope, bradycardia, SHABANA, s/p dopamine drip, then heart rate stabilized and she was cleared by cardiology. She was also discharged on bactroban ointment to apply to sternal wound which she has been compliant. She now returns to the ED with chest pain located throughout the left lower anterior chest that radiates around the left lateral thorax that began 2 weeks ago; described as constant burning pain, "feels like fire", worse with any movement. She reports chills, and a fever of 104 a few days ago, but she has been taking tylenol and ibuprofen and no recurrent fevers. Yesterday on February 05, she woke up and her sternal wound and left lateral chest was severely edematous. She rolled over to her side and the wound "opened up" with purulent drainage. She reports intermittent nausea and occasional vomiting over the past few weeks. She does report some lightheadedness, worse upon standing. Denies any shortness of breath. Her computer aided design operator is Dr. Calle. She has no other medical complaints to report at this time. 4-4 Follow up for suspected AICD infection, possible abscess. The patient reports continued bloody and purulent drainage from the distal sternal wound. She states it feels as though the fluid is coming from her AICD pocket and under the left breast. She reports continued pain and edema around the AICD at the left axillary region and under the left breast to the center of her chest. Denies fevers but does report chills overnight. Requesting regular diet. Denies any other medical complaints including lightheadedness, dizziness, shortness of breath, abdominal pain, nausea/vomiting, or diarrhea. 4-[address] CALLE, [facility]EN [facility], SEEN BY ID CONTINUED ON VANCO WANTS HER PAIN MEDICATIONS ADJUSTED 4-6 seen by infectious disease Seen by cardiovascular surgery Continue on antibiotics No new complaints Still taking breakthrough pain medications Discussed with infectious disease needs to have her AICD removed 02-10 AICD TO BE REMOVED ON MONDAY HAVING ISSUES WITH "STREAKING WITH MORPHINE" WILL MAKE BENADRYL AVAILABLE DW RN AND PT AND CM HARD IV ACCESS REASSURANCE GIVEN 02-11 TO HAVE AICD REMOVED THIS WEEK DW RN AND PT CONTINUE CURRENT TREATMENTS 02-12 PATIENT COMPLAINS OF PAIN IN CHEST AREA DRUG SEEKING BEHAVIOR- LOOKS COMFORTABLE BUT IS ASKING FOR MORE IV PAIN MEDS DW RN AND PT AND ID AND CM AND [facility] FOR SURGERY TOMORROW WILL NOT INCREASE HER PAIN MEDICATIONS- LOOKED COMFORTABLE WHEN COMPLAINING OF PAIN- DID NOT APPEAR UNCOMFORTABLE AT ALL AM LABS 02-13 TO HAVE AICD REMOVED TODAY DW RN AND PT AND CM AND ID WANTING MORE IV PAIN MEDS CONTINUE CURRENT CARE REPLACE POTASSIUM VIA IV SINCE NPO Objective Vitals Vital Signs Date Time Temp Pulse Resp B/P (MAP) Pulse Ox O2 Delivery O2 Flow Rate FiO2 02/13/18 11:00 98.1 16 114/73 (87) 99 02/13/18 07:00 64 16 108/71 (83) 98 02/13/18 06:48 16 02/13/18 04:00 71 16 108/62 (77) 99 02/13/18 02:00 72 02/13/18 01:02 77 16 110/68 (82) 98 02/13/18 01:01 16 02/13/18 01:00 76 02/13/18 00:19 72 02/13/18 00:00 72 02/13/18 00:00 76 16 95/58 (70) 97 02/12/18 23:00 78 02/12/18 22:00 92 02/12/18 21:00 76 02/12/18 20:13 84 20 120/67 (84) 99 02/12/18 20:07 83 02/12/18 20:00 84 02/12/18 19:00 82 02/12/18 18:00 70 02/12/18 17:00 78 02/12/18 16:00 100 I/O 02/12/18 02/12/18 02/12/18 02/13/18 02/13/18 02/13/18 07:00 15:00 23:00 07:00 15:00 23:00 Intake Total 480 ml 1440 ml 240 ml Output Total 1000 ml 2500 ml 1350 ml Balance -520 ml -1060 ml -1110 ml Intake Oral 480 ml 1440 ml 240 ml Output Urine Total 1000 ml 2500 ml 1350 ml # Bowel Movements 0 Result Diagram: 02/13/18 0746 02/13/18 0746 Other Results Laboratory Tests Test 02/11/18 06:22 02/11/18 06:32 02/12/18 05:41 02/12/18 05:45 Blood Urea Nitrogen 23 MG/DL 22 MG/DL Creatinine 1.40 MG/DL 1.23 MG/DL Random Glucose 78 MG/DL 89 MG/DL Total Protein 6.5 GM/DL 6.0 GM/DL Albumin 2.9 GM/DL 2.6 GM/DL Calcium Level 8.3 MG/DL 8.5 MG/DL Phosphorus Level 4.0 MG/DL 3.3 MG/DL Magnesium Level 1.8 MG/DL 1.9 MG/DL Alkaline Phosphatase 71 U/L 65 U/L Aspartate Amino Transf (AST/SGOT) 10 U/L 12 U/L Alanine Aminotransferase (ALT/SGPT) 19 U/L 19 U/L Total Bilirubin 0.2 MG/DL 0.1 MG/DL Sodium Level 142 MEQ/L 144 MEQ/L Potassium Level 3.4 MEQ/L 3.3 MEQ/L Chloride Level 105 MEQ/L 106 MEQ/L Carbon Dioxide Level 28.2 MEQ/L 29.9 MEQ/L Anion Gap 9 MEQ/L 8 MEQ/L Estimat Glomerular Filtration Rate 41 ML/MIN 48 ML/MIN White Blood Count 6.4 TH/MM3 6.5 TH/MM3 Red Blood Count 3.76 MIL/MM3 3.45 MIL/MM3 Hemoglobin 10.5 GM/DL 9.6 GM/DL Hematocrit 31.3 % 28.8 % Mean Corpuscular Volume 83.3 FL 83.6 FL Mean Corpuscular Hemoglobin 27.9 PG 27.7 PG Mean Corpuscular Hemoglobin Concent 33.5 % 33.2 % Red Cell Distribution Width 18.0 % 17.8 % Platelet Count 170 TH/MM3 130 TH/MM3 Mean Platelet Volume 7.4 FL 7.7 FL Neutrophils (%) (Auto) 52.6 % 46.5 % Lymphocytes (%) (Auto) 29.8 % 34.9 % Monocytes (%) (Auto) 11.2 % 11.3 % Eosinophils (%) (Auto) 5.4 % 6.1 % Basophils (%) (Auto) 1.0 % 1.2 % Neutrophils # (Auto) 3.4 TH/MM3 3.0 TH/MM3 Lymphocytes # (Auto) 1.9 TH/MM3 2.3 TH/MM3 Monocytes # (Auto) 0.7 TH/MM3 0.7 TH/MM3 Eosinophils # (Auto) 0.3 TH/MM3 0.4 TH/MM3 Basophils # (Auto) 0.1 TH/MM3 0.1 TH/MM3 CBC Comment DIFF FINAL DIFF FINAL Differential Comment Prothrombin Time 9.7 SEC Prothromb Time International Ratio 1.0 RATIO Test 02/13/18 07:46 White Blood Count 6.3 TH/MM3 Red Blood Count 3.78 MIL/MM3 Hemoglobin 10.5 GM/DL Hematocrit 31.8 % Mean Corpuscular Volume 84.1 FL Mean Corpuscular Hemoglobin 27.8 PG Mean Corpuscular Hemoglobin Concent 33.1 % Red Cell Distribution Width 17.7 % Platelet Count 156 TH/MM3 Mean Platelet Volume 6.7 FL Neutrophils (%) (Auto) 50.6 % Lymphocytes (%) (Auto) 33.5 % Monocytes (%) (Auto) 9.7 % Eosinophils (%) (Auto) 5.2 % Basophils (%) (Auto) 1.0 % Neutrophils # (Auto) 3.2 TH/MM3 Lymphocytes # (Auto) 2.1 TH/MM3 Monocytes # (Auto) 0.6 TH/MM3 Eosinophils # (Auto) 0.3 TH/MM3 Basophils # (Auto) 0.1 TH/MM3 CBC Comment DIFF FINAL Differential Comment Blood Urea Nitrogen 19 MG/DL Creatinine 1.17 MG/DL Random Glucose 97 MG/DL Total Protein 6.5 GM/DL Albumin 2.8 GM/DL Calcium Level 8.5 MG/DL Phosphorus Level 3.9 MG/DL Magnesium Level 2.0 MG/DL Alkaline Phosphatase 70 U/L Aspartate Amino Transf (AST/SGOT) 13 U/L Alanine Aminotransferase (ALT/SGPT) 22 U/L Total Bilirubin 0.1 MG/DL Sodium Level 141 MEQ/L Potassium Level 3.3 MEQ/L Chloride Level 105 MEQ/L Carbon Dioxide Level 31.2 MEQ/L Anion Gap 5 MEQ/L Estimat Glomerular Filtration Rate 51 ML/MIN Imaging Last Impressions Upper Extremity Ultrasound 02/10/18 0000 Signed Impressions: Service Date/Time: Saturday, February 10, 2018 09:58 - CONCLUSION: There is extensive area of occlusive and nonocclusive clot identified within the right upper extremity as noted above.. Tigist Vega MD Soft Tissue Ultrasound 02/07/18 0000 Signed Impressions: Service Date/Time: Wednesday, February 07, 2018 11:15 - CONCLUSION: There is a dominant heterogeneous echotexture fluid collection in the left axilla measuring in excess of 7 cm which has a linear hyperechoic structure coursing through it. There are also some scattered smaller areas of fluid in the anterior chest wall all measuring 1 cm or less. Vic Smith MD Chest CT 02/06/18 0000 Signed Impressions: Service Date/Time: Tuesday, February 06, 2018 10:52 - CONCLUSION: External cardiac pacer/defibrillator with a single lead. The lead courses from the left midaxillary implanted unit and has a 90 bend cephalad at the level of the lower sternum and with an adjacent small apparent fluid collection. Otherwise mildly edematous/indurated soft tissues around the lead. No CT evidence of osteomyelitis. No acute abnormality demonstrated within the thoracic cavity. Brian Arrieta MD Chest X-Ray 02/05/18 0000 Signed Impressions: Service Date/Time: Monday, February 05, 2018 19:55 - CONCLUSION: 1. No active disease. Defibrillator wire overlies the left hemithorax anteriorly. Hay Day MD Objective Remarks GENERAL: Well-nourished, well-developed middle aged female patient in [facility]. SKIN: Warm and dry. 2cm distal sternal open wound with purulent drainage, surrounding edema, tender to palpation. Left lateral axillary region with palpable subcutaneous AICD with surrounding edema, TTP, no open wounds/ drainage. HEENT: Normocephalic. Atraumatic. Pupils equal and round. Mucous membranes pink and moist. CARDIOVASCULAR: Regular rate and rhythm. No murmur appreciated. RESPIRATORY: No accessory muscle use. Clear to auscultation. Breath sounds equal bilaterally. GASTROINTESTINAL: Abdomen soft, non-tender, nondistended. Normoactive bowel sounds x4. MUSCULOSKELETAL: No obvious deformities. Extremities without clubbing, cyanosis , or edema. NEUROLOGICAL: Awake and alert. No obvious cranial nerve deficits. Motor grossly within normal limits. Normal speech. PSYCHIATRIC: Appropriate mood and affect; insight and judgment normal. Medications and IVs Current Medications Vancomycin HCl 1000 mg/Sodium Chloride 250 ml @ 250 mls/hr ONCE ONCE IV Last administered on 02/06/18at 00:16; Start 02/05/18 at 23:15; Stop 02/06/18 at 00:14; Status DC Potassium Chloride (KCl) 40 meq ONCE ONCE PO Last administered on 02/06/18at 00: 15; Start 02/05/18 at 23:15; Stop 02/05/18 at 23:18; Status DC Morphine Sulfate (Morphine Inj) 2 mg ONCE ONCE IV PUSH Last administered on 02/06/18at 01:31; Start 02/06/18 at 01:30; Stop 02/06/18 at 01:31; Status DC Ondansetron HCl (Zofran Inj) 4 mg ONCE ONCE IV PUSH Last administered on at :31; Start 02/06/18 at 01:30; Stop 02/06/18 at 01:31; Status DC Pharmacy Profile Note 0 ml @ 0 mls/hr UNSCH OTHER ; Start 02/06/18 at 03:15; Stop 02/06/18 at 10:04; Status DC Sodium Chloride (NS Flush) 2 ml UNSCH PRN IV FLUSH FLUSH AFTER USING IV ACCESS ; Start 02/06/18 at 03:15; Stop 02/10/18 at 16:11; Status DC Sodium Chloride (NS Flush) 2 ml BID IV FLUSH Last administered on 02/10/18at 08: 21; Start 02/06/18 at 09:00; Stop 02/10/18 at 16:11; Status DC Acetaminophen (Tylenol) 650 mg Q4H PRN PO headache/fever/pain1-2; Start at 03:15 Naloxone HCl (Narcan Inj) 0.4 mg UNSCH PRN IV PUSH SEE LABEL COMMENTS; Start at 03:15 Prednisone (Deltasone) 10 mg DAILY PO Last administered on 02/06/18at 08:07; Start 02/06/18 at 09:00; Stop 02/06/18 at 10:04; Status DC Ferrous Sulfate (Ferrous Sulfate) 325 mg BIDPC PO Last administered on at 08:08; Start 02/06/18 at 09:00 Levothyroxine Sodium (Synthroid) 125 mcg DAILY@0700 PO Last administered on 02/12 05:50; Start 02/06/18 at 07:00 Magnesium Oxide (Mag-Ox) 400 mg DAILY PO Last administered on 02/13/18 08:08; Start 02/06/18 at 09:00 Pantoprazole Sodium (Protonix) 40 mg HS PO Last administered on 02/12/18 21:03 ; Start 02/06/18 at 21:00 Potassium Chloride (KCl) 40 meq TID PO Last administered on 02/13/18 13:12; Start 02/06/18 at 09:00 Potassium Phosphate (K-Phos) 500 mg PCHS PO Last administered on 02/13/18 13: 11; Start 02/06/18 at 09:30 Spironolactone (Aldactone) 25 mg DAILY PO Last administered on 02/13/18 08:08 ; Start 02/06/18 at 09:00 Lorazepam (Ativan Inj) 1 mg ONCE ONCE IV PUSH Last administered on 02/06/18 07 :40; Start 02/06/18 at 08:00; Stop 02/06/18 at 08:01; Status DC Vancomycin HCl 500 mg/Sodium Chloride 100 ml @ 200 mls/hr ONCE ONCE IV Last administered on 02/06/18 09:36; Start 02/06/18 at 10:00; Stop 02/06/18 at 10:29; Status DC Diazepam (Valium) 10 mg TID PRN PO muscle spasm Last administered on 02/13/18 05:21; Start 02/06/18 at 12:00 Prednisone (Deltasone) 40 mg DAILY PO Last administered on 02/13/18 08:08; Start 02/07/18 at 09:00 Morphine Sulfate (Oramorph Sr) 15 mg Q8HR PRN PO pain 3-10 Last administered on 02/13/18 08:22; Start 02/06/18 at 12:30 Sodium Chloride 1,000 ml @ 84 mls/hr [id number] IV Last administered on 02/06/18 12:51; Start 02/06/18 at 12:00; Stop 02/06/18 at 23:54; Status DC Iodixanol (VISIPAQUE 320 INJ (Rad CT)) 50 ml STK-MED ONCE IVCONTRAST Last administered on 02/06/18 11:13; Start 02/06/18 at 11:13; Stop 02/06/18 at 11:14; Status DC Prednisone (Deltasone) 30 mg ONCE ONCE PO Last administered on 02/06/18 12:49 ; Start 02/06/18 at 13:00; Stop 02/06/18 at 13:01; Status DC Pharmacy Profile Note 0 ml @ 0 mls/hr UNSCH OTHER ; Start 02/07/18 at 07:30; Stop 02/10/18 at 14:30; Status DC Vancomycin HCl 1250 mg/Sodium Chloride 262.5 ml @ 250 mls/hr Q24H IV Last administered on 02/10/18at 11:53; Start 02/07/18 at 12:00; Stop 02/10/18 at 14:30; Status DC Miscellaneous Information SPECIFIC LAB TO BE DRAWN:VANCO TROUGH DATE... ONCE ONCE .XX Last administered on 02/10/18at 11:45; Start 02/10/18 at 11:45; Stop 02/10 at 11:46; Status DC Cholecalciferol (Vitamin D3) 20,000 units DAILY PO ; Start 02/09/18 at 09:00; Stop 02/09/18 at 09:00; Status DC Cholecalciferol (Vitamin D3) 20,000 units Q72H PO Last administered on at 09:22; Start 02/09/18 at 09:00 Morphine Sulfate (Morphine Inj) 4 mg Q3H PRN IV PUSH BREAKTHROUGH PAIN Last administered on 02/13/18at 11:07; Start 02/08/18 at 13:00 Naloxone HCl (Narcan Inj) 0.4 mg UNSCH PRN IV PUSH SEE LABEL COMMENTS; Start at 13:00 Sodium Chloride (NS Flush) 2 ml BID IV FLUSH Last administered on 02/13/18at 09: 00; Start 02/09/18 at 21:00 Sodium Chloride (NS Flush) 2 ml UNSCH PRN IV FLUSH FLUSH AFTER USING IV ACCESS ; Start 02/09/18 at 16:00 Vancomycin HCl 1000 mg/Sodium Chloride 1,000 ml @ 0 mls/hr BOX COVERING MACHINE OPERATOR IRRIGATION ; Start 02/09/18 at 16:00; Stop 02/16/18 at 15:59 Vancomycin HCl 1000 mg/Sodium Chloride 250 ml @ 250 mls/hr BOX COVERING MACHINE OPERATOR IV ; Start 02/09/18 at 16:00; Stop 02/16/18 at 15:59 Chlorhexidine Gluconate (Hibiclens 4% Top Soln) 1 applic BOX COVERING MACHINE OPERATOR TOPICAL ; Start 02/09/18 at 16:00; Stop 02/16/18 at 15:59 Linezolid (Zyvox) 600 mg Q12HR PO Last administered on 02/13/18at 08:06; Start 02/10/18 at 14:30 Ondansetron HCl (Zofran Inj) 8 mg Q6HR PRN IV PUSH NAUSEA AND NOT ABLE TO TAKE PO; Start 02/10/18 at 16:00; Status UNV Ondansetron HCl (Zofran Odt) 8 mg Q6H PRN PO NAUSEA AND ABLE TO TAKE PO Last administered on 02/12/18at 22:56; Start 02/10/18 at 16:00 Diphenhydramine HCl (Benadryl) 50 mg Q6H PRN PO ALLERIC REACTION; Start at 16:00 Ondansetron HCl 8 mg/Dextrose 54 ml @ 216 mls/hr Q6H PRN IV PUSH NAUSEA AND NOT ABLE TO TAKE PO; Start 02/10/18 at 16:15 Potassium Chloride (KCl) 60 meq ONCE ONCE PO Last administered on 02/11/18at 12: 53; Start 02/11/18 at 13:15; Stop 02/11/18 at 13:16; Status DC Potassium Chloride (KCl) 60 meq ONCE ONCE PO Last administered on 02/12/18at 15: 37; Start 02/12/18 at 14:45; Stop 02/12/18 at 14:47; Status DC Bupivacaine HCl (Marcaine Pf 0.5% Inj) 30 ml STK-MED ONCE .ROUTE ; Start at 13:48; Stop 02/13/18 at 13:49; Status DC Sugammadex Sodium (Bridion Inj) 200 mg STK-MED ONCE IV PUSH ; Start 02/13/18 at 13:52; Stop 02/13/18 at 13:53; Status DC Acetaminophen 100 ml @ As Directed STK-MED ONCE IV ; Start 02/13/18 at 13:53; Stop 02/13/18 at 13:54; Status DC Vancomycin HCl (Vancomycin Inj) 1,000 mg STK-MED ONCE .ROUTE ; Start 02/13/18 at 13:55; Stop 02/13/18 at 13:56; Status DC A/P Problem List: (1) Cellulitis of chest wall ICD Code: L03.313 - Cellulitis of chest wall Status: Acute (2) SHABANA (acute kidney injury) ICD Code: N17.9 - Acute kidney failure, unspecified Assessment and Plan 42-year-old female with history of lupus, Brugada syndrome, pacemaker/ defibrillator, hypothyroidism, CKD stage III, presents with concern for sternal wound infection and constant chest pain. Recurrent AICD Infection with Sternal Wound Cellulitis: afebrile, no leukocytosis, however +tachycardia and wound with purulent drainage. CXR reviewed and unremarkable. Need to rule out abscess vs recurrent bacteremia. -Chest CT reviewed, shows external cardiac pacer/defibrillator with a single lead that courses from the left midaxillary implanted unit and has a 90deg bend cephalad at the level of the lower sternum and with an adjacent small apparent fluid collection. Otherwise mildly edematous/indurated soft tissues around the lead. No CT evidence of osteomyelitis. No acute abnormality demonstrated within the thoracic cavity. -Wound and Blood cultures collected and pending -Continue antibiotics with IV Vanco, pharmacy consulted -Tylenol prn fever, continue patient's Oramorph prn pain MORPHINE IV FOR BREAKTHRU PAIN -Consult patient's computer aided design operator Dr. Calle, likely needs AICD removal -Consult ID, discussed with Dr. Guerra, appreciate recommendations -Obtain records from previous hospitalization at , including ID Dr. Gardner notes, echo, imaging, cultures, etc. -Chest U/S and Echocardiogram ordered -Admit to inpatient and transfer to [facility] per Dr. Guerra SEEN BY [facility] AND DR CALLE Needs AICD out-SCHEDULED FOR MONDAY Positive MRSA/ [employer]- WILL DEFER TO ID Atypical Chest Pain: suspect secondary to infection, pain reproducible with palpation and movement -Continue patient's Oramorph 15mg q8h prn pain -monitor on telemetry Brugada Syndrome: s/p pacer/AICD -monitor on telemetry -cardiology consulted as above SHABANA on CKD stage III: suspect secondary to dehydration. Cr 1.99, previously 1.24 on 01/24/18. -give IVF hydration -monitor BMP, improving with Cr 1.24 -avoid nephrotoxins Hypokalemia: patient with chronic history of hypokalemia, on KCl 40meq tid at home. K 3.1 upon arrival -continue patient's potassium replacement -monitor BMP, give additional replacement as needed REPLACE AGAIN Lupus: chronic -continue patient's prednisone 40mg daily -continue pain control with patient's Oramorph 15mg q8h prn Anxiety: chronic -continue patient's valium 10mg tid prn Hypothyroidism: chronic -continue patient's Synthroid 125mcg daily CHRONIC PAIN - CONTINUE PAIN CONTROL POSSIBLE ALLERGIC REACTION BENADRYL NAUSEA ZOFRAN DVT Prophylaxis: mariano/SCDs; avoid chemoprophylaxis incase surgical intervention is indicated Discharge Planning PENDING ID AND [facility] AND Nathaniel Tenorio DO Feb 13, 2018 15:23
--- NOTE | 2018-02-13 15:38 | PD.CAR.PN ---
CVT Progress Note Subjective/Hospital Course: 42-year-old female with past medical history significant for lupus, gastroparesis, Crohn's disease, hypothyroidism, chronic kidney disease stage III , recurrent hypokalemia, anxiety, on chronic immunosuppressive and Brugada syndrome status post AICD placement October 2017 with history of previous device infection who presents to [facility] with complaints of chest pain secondary to sternal wound infection. Her fence post driver is Dr. Cervantes who placed an AICD device in October of 2017. Patient states she started to feel unwell the end of November. In December 2017, she was admitted to [facility], completed 1 week of IV antibiotics followed by removal of the AICD device and had a subsequent treatment of antibiotics 1 week. She then had an AICD device reimplanted and completed 1 month of IV antibiotics. Patient is unsure but thinks that she was treated with Levaquin. She was not discharged on any oral antibiotic treatment. At that time, she was managed by infectious disease physician Dr. Gardner. She was recently admitted 01/18-01/24 for syncope, bradycardia, SHABANA, s/p dopamine drip, then heart rate stabilized and she was cleared by cardiology. At that time, she had a small wound overlying the sternum and was given Bactroban at discharge. About 2 weeks ago, she began developing left axillary pain over the site of her AICD device that radiated underneath the left breast into the mid sternum. She has had a poorly healing sore over the mid chest that began to enlarge as well as increased swelling and hardness underneath the left breast. Yesterday the sore opened up with purulent drainage. She reports chills but denies any fever or sweats. She denies any cough or shortness of breath. She denies any nausea or vomiting. States that she has chronic abdominal pain secondary to Crohn's disease and gastroparesis that is unchanged. She has a history of MRSA infection left axilla many years ago but states she's been tested multiple times for MRSA since then and is always been negative. She is not sure of what her cultures were that she grew when admitted at [facility] in December with infection of the AICD device but is certain it was not MRSA. 02/09 pt still has increasing tenderness and swelling left breast and axilla pt has been seen by ID and recommend removal of ICD and leads/ Dr Cervantes agreeable and will proceed on 02/13 still having pain to ICD pacer site/ + swelling for OR tomorrow 02/13 OR cancelled today, rescheduled for mon case Objective: GENERAL: A&O x 3 SKIN: Warm and dry. swelling and pain left axillary area , small wound mid sternum with yellowish drainage HEAD: Normocephalic. EYES: No scleral icterus. No injection or drainage. NECK: Supple, trachea midline. No JVD or lymphadenopathy. CARDIOVASCULAR: Regular rate and rhythm without murmurs, gallops, or rubs. RESPIRATORY: Breath sounds equal bilaterally. No accessory muscle use. GASTROINTESTINAL: Abdomen soft, non-tender, nondistended. MUSCULOSKELETAL: No cyanosis, or edema. BACK: Nontender without obvious deformity. No CVA tenderness. Vital Signs Date Time Temp Pulse Resp B/P (MAP) Pulse Ox O2 Delivery O2 Flow Rate FiO2 02/13/18 11:00 98.1 16 114/73 (87) 99 02/13/18 07:00 64 16 108/71 (83) 98 02/13/18 06:48 16 02/13/18 04:00 71 16 108/62 (77) 99 02/13/18 02:00 72 02/13/18 01:02 77 16 110/68 (82) 98 02/13/18 01:01 16 02/13/18 01:00 76 02/13/18 00:19 72 02/13/18 00:00 72 02/13/18 00:00 76 16 95/58 (70) 97 02/12/18 23:00 78 02/12/18 22:00 92 02/12/18 21:00 76 02/12/18 20:13 84 20 120/67 (84) 99 02/12/18 20:07 83 02/12/18 20:00 84 02/12/18 19:00 82 02/12/18 18:00 70 02/12/18 17:00 78 02/12/18 16:00 100 Labs: Laboratory Tests Test 02/13/18 07:46 White Blood Count 6.3 TH/MM3 (4.0-11.0) Red Blood Count 3.78 MIL/MM3 (4.00-5.30) Hemoglobin 10.5 GM/DL (11.6-15.3) Hematocrit 31.8 % (35.0-46.0) Mean Corpuscular Volume 84.1 FL (80.0-100.0) Mean Corpuscular Hemoglobin 27.8 PG (27.0-34.0) Mean Corpuscular Hemoglobin Concent 33.1 % (32.0-36.0) Red Cell Distribution Width 17.7 % (11.6-17.2) Platelet Count 156 TH/MM3 (150-450) Mean Platelet Volume 6.7 FL (7.0-11.0) Neutrophils (%) (Auto) 50.6 % (16.0-70.0) Lymphocytes (%) (Auto) 33.5 % (9.0-44.0) Monocytes (%) (Auto) 9.7 % (0.0-8.0) Eosinophils (%) (Auto) 5.2 % (0.0-4.0) Basophils (%) (Auto) 1.0 % (0.0-2.0) Neutrophils # (Auto) 3.2 TH/MM3 (1.8-7.7) Lymphocytes # (Auto) 2.1 TH/MM3 (1.0-4.8) Monocytes # (Auto) 0.6 TH/MM3 (0-0.9) Eosinophils # (Auto) 0.3 TH/MM3 (0-0.4) Basophils # (Auto) 0.1 TH/MM3 (0-0.2) CBC Comment DIFF FINAL Differential Comment Blood Urea Nitrogen 19 MG/DL (7-18) Creatinine 1.17 MG/DL (0.50-1.00) Random Glucose 97 MG/DL (74-106) Total Protein 6.5 GM/DL (6.4-8.2) Albumin 2.8 GM/DL (3.4-5.0) Calcium Level 8.5 MG/DL (8.5-10.1) Phosphorus Level 3.9 MG/DL (2.5-4.9) Magnesium Level 2.0 MG/DL (1.5-2.5) Alkaline Phosphatase 70 U/L (45-117) Aspartate Amino Transf (AST/SGOT) 13 U/L (15-37) Alanine Aminotransferase (ALT/SGPT) 22 U/L (10-53) Total Bilirubin 0.1 MG/DL (0.2-1.0) Sodium Level 141 MEQ/L (136-145) Potassium Level 3.3 MEQ/L (3.5-5.1) Chloride Level 105 MEQ/L (98-107) Carbon Dioxide Level 31.2 MEQ/L (21.0-32.0) Anion Gap 5 MEQ/L (5-15) Estimat Glomerular Filtration Rate 51 ML/MIN (>89) Result Diagram: 02/13/18 0746 02/13/18 0746 (1) Brugada syndrome (2) Post traumatic stress disorder (PTSD) (3) Lupus (systemic lupus erythematosus) (4) AICD generator infection Plan: for removal on 02/14 (5) Infection of automatic implantable cardioverter-defibrillator lead Plan: [employer] rep notified 02/09 Tigist Rosa Feb 13, 2018 15:38
[2018-02-13] MEDS ORDERED: POTASSIUM CHLOR 20 MEQ PREMIX 100 ML IV SCH (16:30)
[2018-02-13] MEDS: PANTOPRAZOLE SOD 40 MG DELAYED RELEASE TAB PO SCH (20:07)
[2018-02-14] VITALS (23 sets, daily range): BP systolic 95–156; BP diastolic 56–83; PULSE 56–80; RESP 12–18; TEMP 98.3–98.6; O2SAT 95–100
[2018-02-14] MEDS: MORPHINE SULFATE 4 MG/ML INJ IV PUSH PRN ×4 (00:09→11:33)
[2018-02-14] MEDS: DIAZEPAM 10 MG TAB PO PRN ×2 (04:07→21:51)
[2018-02-14] MEDS: LEVOTHYROXINE SODIUM 125 MCG TAB PO SCH (06:41)
[2018-02-14 06:57] LABS: AUTOMATED NEUTROPHIL # 2.9 TH/MM3 (1.8-7.7); BASOPHIL % 0.8 % (0.0-2.0); EOSINOPHIL # 0.3 TH/MM3 (0-0.4); EOSINOPHIL % 4.9 % (0.0-4.0); HEMATOCRIT 30.2 % (35.0-46.0); HEMOGLOBIN 10.1 GM/DL (11.6-15.3); LYMPH % 37.1 % (9.0-44.0); LYMPHOCYTE # 2.2 TH/MM3 (1.0-4.8); MEAN CELL VOLUME 83.7 FL (80.0-100.0); MEAN CORPUSCULAR HGB CONC 33.5 % (32.0-36.0); MEAN PLATELET VOLUME 7.5 FL (7.0-11.0); MONO % 9.7 % (0.0-8.0); MONOCYTE # 0.6 TH/MM3 (0-0.9); NEUT % 47.5 % (16.0-70.0); PLATELET COUNT 174 TH/MM3 (150-450); RED CELL DISTRIBUTION WIDTH 17.3 % (11.6-17.2); WHITE BLOOD COUNT 6.1 TH/MM3 (4.0-11.0)
[2018-02-14 07:04] LABS: ALBUMIN 2.7 GM/DL (3.4-5.0); AST (GOT) 12 U/L (15-37); BICARBONATE 29.4 MEQ/L (21.0-32.0); BLOOD UREA NITROGEN 19 MG/DL (7-18); CALCIUM 8.5 MG/DL (8.5-10.1); CHLORIDE 107 MEQ/L (98-107); CREATININE 1.13 MG/DL (0.50-1.00); GLOMERULAR FILTRATION RATE 53 ML/MIN (>89); GLUCOSE,RANDOM 101 MG/DL (74-106); SODIUM (NA) 143 MEQ/L (136-145)
[2018-02-14 07:08] LABS: ALKALINE PHOSPHATASE 66 U/L (45-117); ALT (GPT) 19 U/L (10-53); PHOSPHORUS 3.9 MG/DL (2.5-4.9); TOTAL BILIRUBIN ADULT 0.1 MG/DL (0.2-1.0); TOTAL PROTEIN 6.1 GM/DL (6.4-8.2)
[2018-02-14] MEDS: SODIUM CHLORIDE 0.9% FLUSH 10 ML FLUSH IV FLUSH SCH ×2 (09:00→21:00)
[2018-02-14] MEDS: POTASSIUM CHLOR 20 MEQ PREMIX 100 ML IV SCH ×2 (09:01→11:00)
[2018-02-14] MEDS: POTASSIUM CHLORIDE 20 MEQ CONTROLLED RELEASE TAB PO SCH ×4 (09:02→19:12)
[2018-02-14] MEDS: predniSONE 20 MG TAB PO SCH (09:02)
[2018-02-14] MEDS: SPIRONOLACTONE 25 MG TAB PO SCH (09:02)
[2018-02-14] MEDS: FERROUS SULFATE 325 MG (65 MG ELEMENTAL IRON) TAB PO SCH ×2 (09:02→19:12)
[2018-02-14] MEDS: MAGNESIUM OXIDE 400 MG TAB PO SCH (09:03)
[2018-02-14] MEDS: POTASSIUM PHOSPHATE MONOBASIC 500 MG TAB PO SCH ×5 (09:03→21:51)
[2018-02-14] MEDS: LINEZOLID 600 MG TAB PO SCH ×2 (09:03→21:51)
[2018-02-14] MEDS: MORPHINE SULFATE 15 MG CONTROLLED RELEASE TAB PO PRN ×2 (09:04→22:04)
[2018-02-14] MEDS ORDERED: BUPIVACAINE HCL PF 0.5% 30 ML VIAL ONE (09:51)
[2018-02-14] MEDS ORDERED: ceFAZolin INJ 1,000 MG VIAL ONE ×2 (09:51→09:52)
[2018-02-14] MEDS ORDERED: LIDOCAINE HCL 1% PF 5 ML SYRINGE OTHER ONE (12:00)
[2018-02-14] MEDS ORDERED: ROCURONIUM INJ 50 MG/5 ML SYRINGE IV PUSH ONE (12:00)
[2018-02-14] MEDS ORDERED: PROPOFOL 200 MG/20 ML AMP IV ONE (12:00)
[2018-02-14] MEDS ORDERED: ONDANSETRON HCL 4 MG/2 ML VIAL IV ONE (12:00)
[2018-02-14] MEDS ORDERED: LACTATED RINGER'S 1000 ML INJ 1,000 ML IV ONE (12:00)
[2018-02-14] MEDS ORDERED: VANCOMYCIN HCL 1000 MG VIAL ONE (13:11)
--- NOTE | 2018-02-14 13:36 | HHI.PR ---
Subjective Remarks 42-year-old female with history of lupus, Brugada syndrome, pacemaker/ defibrillator, hypothyroidism, CKD stage III, presents with concern for sternal wound infection and constant chest pain. The patient has history of syncope with Brugada syndrome, s/p pacer/AICD placement in , subsequently removed due to infection/bacteremia, now s/p replacement 3 weeks ago. She was also recently admitted 01/18-01/24 for syncope, bradycardia, SHABANA, s/p dopamine drip, then heart rate stabilized and she was cleared by cardiology. She was also discharged on bactroban ointment to apply to sternal wound which she has been compliant. She now returns to the ED with chest pain located throughout the left lower anterior chest that radiates around the left lateral thorax that began 2 weeks ago; described as constant burning pain, "feels like fire", worse with any movement. She reports chills, and a fever of 104 a few days ago, but she has been taking tylenol and ibuprofen and no recurrent fevers. Yesterday on February 05, she woke up and her sternal wound and left lateral chest was severely edematous. She rolled over to her side and the wound "opened up" with purulent drainage. She reports intermittent nausea and occasional vomiting over the past few weeks. She does report some lightheadedness, worse upon standing. Denies any shortness of breath. Her progressive care unit registered nurse is Dr. Calle. She has no other medical complaints to report at this time. 4-4 Follow up for suspected AICD infection, possible abscess. The patient reports continued bloody and purulent drainage from the distal sternal wound. She states it feels as though the fluid is coming from her AICD pocket and under the left breast. She reports continued pain and edema around the AICD at the left axillary region and under the left breast to the center of her chest. Denies fevers but does report chills overnight. Requesting regular diet. Denies any other medical complaints including lightheadedness, dizziness, shortness of breath, abdominal pain, nausea/vomiting, or diarrhea. 4-[address] CALLE, [facility], SEEN BY ID CONTINUED ON VANCO WANTS HER PAIN MEDICATIONS ADJUSTED 4-6 seen by infectious disease Seen by cardiovascular surgery Continue on antibiotics No new complaints Still taking breakthrough pain medications Discussed with infectious disease needs to have her AICD removed 02-10 AICD TO BE REMOVED ON MONDAY HAVING ISSUES WITH "STREAKING WITH MORPHINE" WILL MAKE BENADRYL AVAILABLE DW RN AND PT AND CM HARD IV ACCESS REASSURANCE GIVEN 02-11 TO HAVE AICD REMOVED THIS WEEK DW RN AND PT CONTINUE CURRENT TREATMENTS 02-12 PATIENT COMPLAINS OF PAIN IN CHEST AREA DRUG SEEKING BEHAVIOR- LOOKS COMFORTABLE BUT IS ASKING FOR MORE IV PAIN MEDS DW RN AND PT AND ID AND CM AND [facility] FOR [facility]GERY TOMORROW WILL NOT INCREASE HER PAIN MEDICATIONS- LOOKED COMFORTABLE WHEN COMPLAINING OF PAIN- DID NOT APPEAR UNCOMFORTABLE AT ALL AM LABS 02-13 TO HAVE AICD REMOVED TODAY DW RN AND PT AND CM AND ID WANTING MORE IV PAIN MEDS CONTINUE CURRENT CARE REPLACE POTASSIUM VIA IV SINCE NPO 02-14 FOR AICD REMOVAL TODAY FOUND TO IMODIUM TYPE MEDS IN HER ROOM TODAY CONSULT PSYCHIATRY 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 AM LABS DW RN AND PT AND CM Objective Vitals Vital Signs Date Time Temp Pulse Resp B/P (MAP) Pulse Ox O2 Delivery O2 Flow Rate FiO2 02/14/18 12:00 56 02/14/18 11:31 98.3 64 18 156/83 (107) 96 02/14/18 11:00 58 02/14/18 10:06 16 02/14/18 10:00 58 02/14/18 09:00 62 02/14/18 08:00 64 02/14/18 07:36 98.6 70 16 147/71 (96) 97 02/14/18 07:00 65 02/14/18 06:48 16 02/14/18 04:00 65 02/14/18 02:00 66 02/14/18 01:00 64 02/14/18 00:07 70 16 95/57 (70) 99 02/14/18 00:00 69 02/14/18 00:00 70 02/13/18 23:00 80 02/13/18 22:00 72 02/13/18 21:00 74 02/13/18 20:12 71 16 93/62 (72) 98 02/13/18 20:00 70 02/13/18 20:00 70 02/13/18 19:00 82 02/13/18 15:00 98.2 68 18 110/72 (85) 99 I/O 02/13/18 02/13/18 02/13/18 02/14/18 02/14/18 02/14/18 07:00 15:00 23:00 07:00 15:00 23:00 Intake Total 240 ml 480 ml 240 ml Output Total 1350 ml 1000 ml 1360 ml Balance -1110 ml -520 ml -1120 ml Intake Oral 240 ml 480 ml 240 ml Output Urine Total 1350 ml 1000 ml 1360 ml # Bowel Movements 1 Result Diagram: 02/14/18 0535 02/14/18 0535 Other Results Laboratory Tests Test 02/12/18 05:41 02/12/18 05:45 02/13/18 07:46 02/14/18 05:35 White Blood Count 6.5 TH/MM3 6.3 TH/MM3 6.1 TH/MM3 Red Blood Count 3.45 MIL/MM3 3.78 MIL/MM3 3.60 MIL/MM3 Hemoglobin 9.6 GM/DL 10.5 GM/DL 10.1 GM/DL Hematocrit 28.8 % 31.8 % 30.2 % Mean Corpuscular Volume 83.6 FL 84.1 FL 83.7 FL Mean Corpuscular Hemoglobin 27.7 PG 27.8 PG 28.0 PG Mean Corpuscular Hemoglobin Concent 33.2 % 33.1 % 33.5 % Red Cell Distribution Width 17.8 % 17.7 % 17.3 % Platelet Count 130 TH/MM3 156 TH/MM3 174 TH/MM3 Mean Platelet Volume 7.7 FL 6.7 FL 7.5 FL Neutrophils (%) (Auto) 46.5 % 50.6 % 47.5 % Lymphocytes (%) (Auto) 34.9 % 33.5 % 37.1 % Monocytes (%) (Auto) 11.3 % 9.7 % 9.7 % Eosinophils (%) (Auto) 6.1 % 5.2 % 4.9 % Basophils (%) (Auto) 1.2 % 1.0 % 0.8 % Neutrophils # (Auto) 3.0 TH/MM3 3.2 TH/MM3 2.9 TH/MM3 Lymphocytes # (Auto) 2.3 TH/MM3 2.1 TH/MM3 2.2 TH/MM3 Monocytes # (Auto) 0.7 TH/MM3 0.6 TH/MM3 0.6 TH/MM3 Eosinophils # (Auto) 0.4 TH/MM3 0.3 TH/MM3 0.3 TH/MM3 Basophils # (Auto) 0.1 TH/MM3 0.1 TH/MM3 0.0 TH/MM3 CBC Comment DIFF FINAL DIFF FINAL DIFF FINAL Differential Comment Prothrombin Time 9.7 SEC Prothromb Time International Ratio 1.0 RATIO Blood Urea Nitrogen 22 MG/DL 19 MG/DL 19 MG/DL Creatinine 1.23 MG/DL 1.17 MG/DL 1.13 MG/DL Random Glucose 89 MG/DL 97 MG/DL 101 MG/DL Total Protein 6.0 GM/DL 6.5 GM/DL 6.1 GM/DL Albumin 2.6 GM/DL 2.8 GM/DL 2.7 GM/DL Calcium Level 8.5 MG/DL 8.5 MG/DL 8.5 MG/DL Phosphorus Level 3.3 MG/DL 3.9 MG/DL 3.9 MG/DL Magnesium Level 1.9 MG/DL 2.0 MG/DL 2.0 MG/DL Alkaline Phosphatase 65 U/L 70 U/L 66 U/L Aspartate Amino Transf (AST/SGOT) 12 U/L 13 U/L 12 U/L Alanine Aminotransferase (ALT/SGPT) 19 U/L 22 U/L 19 U/L Total Bilirubin 0.1 MG/DL 0.1 MG/DL 0.1 MG/DL Sodium Level 144 MEQ/L 141 MEQ/L 143 MEQ/L Potassium Level 3.3 MEQ/L 3.3 MEQ/L 3.9 MEQ/L Chloride Level 106 MEQ/L 105 MEQ/L 107 MEQ/L Carbon Dioxide Level 29.9 MEQ/L 31.2 MEQ/L 29.4 MEQ/L Anion Gap 8 MEQ/L 5 MEQ/L 7 MEQ/L Estimat Glomerular Filtration Rate 48 ML/MIN 51 ML/MIN 53 ML/MIN Imaging Last Impressions Upper Extremity Ultrasound 02/10/18 0000 Signed Impressions: Service Date/Time: Saturday, February 10, 2018 09:58 - CONCLUSION: There is extensive area of occlusive and nonocclusive clot identified within the right upper extremity as noted above.. Tigist Vega MD Soft Tissue Ultrasound 02/07/18 0000 Signed Impressions: Service Date/Time: Wednesday, February 07, 2018 11:15 - CONCLUSION: There is a dominant heterogeneous echotexture fluid collection in the left axilla measuring in excess of 7 cm which has a linear hyperechoic structure coursing through it. There are also some scattered smaller areas of fluid in the anterior chest wall all measuring 1 cm or less. Vic Smith MD Chest CT 02/06/18 0000 Signed Impressions: Service Date/Time: Tuesday, February 06, 2018 10:52 - CONCLUSION: External cardiac pacer/defibrillator with a single lead. The lead courses from the left midaxillary implanted unit and has a 90 bend cephalad at the level of the lower sternum and with an adjacent small apparent fluid collection. Otherwise mildly edematous/indurated soft tissues around the lead. No CT evidence of osteomyelitis. No acute abnormality demonstrated within the thoracic cavity. Brian Arrieta MD Chest X-Ray 02/05/18 0000 Signed Impressions: Service Date/Time: Monday, February 05, 2018 19:55 - CONCLUSION: 1. No active disease. Defibrillator wire overlies the left hemithorax anteriorly. Hay Day MD Objective Remarks GENERAL: Well-nourished, well-developed middle aged female patient in [facility]. Very bizarre behaviors SKIN: Warm and dry. 2cm distal sternal open wound with purulent drainage, surrounding edema, tender to palpation. Left lateral axillary region with palpable subcutaneous AICD with surrounding edema, TTP, no open wounds/ drainage. HEENT: Normocephalic. Atraumatic. Pupils equal and round. Mucous membranes pink and moist. CARDIOVASCULAR: Regular rate and rhythm. No murmur appreciated. RESPIRATORY: No accessory muscle use. Clear to auscultation. Breath sounds equal bilaterally. GASTROINTESTINAL: Abdomen soft, non-tender, nondistended. Normoactive bowel sounds x4. MUSCULOSKELETAL: No obvious deformities. Extremities without clubbing, cyanosis , or edema. NEUROLOGICAL: Awake and alert. No obvious cranial nerve deficits. Motor grossly within normal limits. Normal speech. PSYCHIATRIC: INAppropriate mood and affect; insight and judgment ABnormal. Medications and IVs Current Medications Vancomycin HCl 1000 mg/Sodium Chloride 250 ml @ 250 mls/hr ONCE ONCE IV Last administered on 02/06/18at 00:16; Start 02/05/18 at 23:15; Stop 02/06/18 at 00:14; Status DC Potassium Chloride (KCl) 40 meq ONCE ONCE PO Last administered on 02/06/18at 00: 15; Start 02/05/18 at 23:15; Stop 02/05/18 at 23:18; Status DC Morphine Sulfate (Morphine Inj) 2 mg ONCE ONCE IV PUSH Last administered on 02/06/18at 01:31; Start 02/06/18 at 01:30; Stop 02/06/18 at 01:31; Status DC Ondansetron HCl (Zofran Inj) 4 mg ONCE ONCE IV PUSH Last administered on at 01:31; Start 02/06/18 at 01:30; Stop 02/06/18 at 01:31; Status DC Pharmacy Profile Note 0 ml @ 0 mls/hr UNSCH OTHER ; Start 02/06/18 at 03:15; Stop 02/06/18 at 10:04; Status DC Sodium Chloride (NS Flush) 2 ml UNSCH PRN IV FLUSH FLUSH AFTER USING IV ACCESS ; Start 02/06/18 at 03:15; Stop 02/10/18 at 16:11; Status DC Sodium Chloride (NS Flush) 2 ml BID IV FLUSH Last administered on 02/10/18at 08: 21; Start 02/06/18 at 09:00; Stop 02/10/18 at 16:11; Status DC Acetaminophen (Tylenol) 650 mg Q4H PRN PO headache/fever/pain1-2; Start at 03:15 Naloxone HCl (Narcan Inj) 0.4 mg UNSCH PRN IV PUSH SEE LABEL COMMENTS; Start at 03:15; Stop 02/14/18 at 08:38; Status DC Prednisone (Deltasone) 10 mg DAILY PO Last administered on 02/06/18at 08:07; Start 02/06/18 at 09:00; Stop 02/06/18 at 10:04; Status DC Ferrous Sulfate (Ferrous Sulfate) 325 mg BIDPC PO Last administered on at 09:02; Start 02/06/18 at 09:00 Levothyroxine Sodium (Synthroid) 125 mcg DAILY@0700 PO Last administered on 09/23at 06:41; Start 02/06/18 at 07:00 Magnesium Oxide (Mag-Ox) 400 mg DAILY PO Last administered on 02/14/18at 09:03; Start 02/06/18 at 09:00 Pantoprazole Sodium (Protonix) 40 mg HS PO Last administered on 02/13/18 20:07 ; Start 02/06/18 at 21:00 Potassium Chloride (KCl) 40 meq TID PO Last administered on 02/14/18 09:02; Start 02/06/18 at 09:00 Potassium Phosphate (K-Phos) 500 mg PCHS PO Last administered on 02/14/18 09: 03; Start 02/06/18 at 09:30 Spironolactone (Aldactone) 25 mg DAILY PO Last administered on 02/14/18 09:02 ; Start 02/06/18 at 09:00 Lorazepam (Ativan Inj) 1 mg ONCE ONCE IV PUSH Last administered on 02/06/18 07 :40; Start 02/06/18 at 08:00; Stop 02/06/18 at 08:01; Status DC Vancomycin HCl 500 mg/Sodium Chloride 100 ml @ 200 mls/hr ONCE ONCE IV Last administered on 02/06/18 09:36; Start 02/06/18 at 10:00; Stop 02/06/18 at 10:29; Status DC Diazepam (Valium) 10 mg TID PRN PO muscle spasm Last administered on 02/14/18 04:07; Start 02/06/18 at 12:00 Prednisone (Deltasone) 40 mg DAILY PO Last administered on 02/14/18 09:02; Start 02/07/18 at 09:00 Morphine Sulfate (Oramorph Sr) 15 mg Q8HR PRN PO pain 3-10 Last administered on 02/14/18 09:04; Start 02/06/18 at 12:30 Sodium Chloride 1,000 ml @ 84 mls/hr [id number] IV Last administered on 02/06/18 12:51; Start 02/06/18 at 12:00; Stop 02/06/18 at 23:54; Status DC Iodixanol (VISIPAQUE 320 INJ (Rad CT)) 50 ml STK-MED ONCE IVCONTRAST Last administered on 02/06/18 11:13; Start 02/06/18 at 11:13; Stop 02/06/18 at 11:14; Status DC Prednisone (Deltasone) 30 mg ONCE ONCE PO Last administered on 02/06/18 12:49 ; Start 02/06/18 at 13:00; Stop 02/06/18 at 13:01; Status DC Pharmacy Profile Note 0 ml @ 0 mls/hr UNSCH OTHER ; Start 02/07/18 at 07:30; Stop 02/10/18 at 14:30; Status DC Vancomycin HCl 1250 mg/Sodium Chloride 262.5 ml @ 250 mls/hr Q24H IV Last administered on 02/10/18at 11:53; Start 02/07/18 at 12:00; Stop 02/10/18 at 14:30; Status DC Miscellaneous Information SPECIFIC LAB TO BE DRAWN:VANCO TROUGH DATE... ONCE ONCE .XX Last administered on 02/10/18at 11:45; Start 02/10/18 at 11:45; Stop 02/10 at 11:46; Status DC Cholecalciferol (Vitamin D3) 20,000 units DAILY PO ; Start 02/09/18 at 09:00; Stop 02/09/18 at 09:00; Status DC Cholecalciferol (Vitamin D3) 20,000 units Q72H PO Last administered on at 09:22; Start 02/09/18 at 09:00 Morphine Sulfate (Morphine Inj) 4 mg Q3H PRN IV PUSH BREAKTHROUGH PAIN Last administered on 02/14/18at 11:33; Start 02/08/18 at 13:00 Naloxone HCl (Narcan Inj) 0.4 mg UNSCH PRN IV PUSH SEE LABEL COMMENTS; Start at 13:00 Sodium Chloride (NS Flush) 2 ml BID IV FLUSH Last administered on 02/14/18at 09: 00; Start 02/09/18 at 21:00 Sodium Chloride (NS Flush) 2 ml UNSCH PRN IV FLUSH FLUSH AFTER USING IV ACCESS ; Start 02/09/18 at 16:00 Vancomycin HCl 1000 mg/Sodium Chloride 1,000 ml @ 0 mls/hr [employer] IRRIGATION ; Start 02/09/18 at 16:00; Stop 02/16/18 at 15:59 Vancomycin HCl 1000 mg/Sodium Chloride 250 ml @ 250 mls/hr [employer] IV ; Start 02/09/18 at 16:00; Stop 02/16/18 at 15:59 Chlorhexidine Gluconate (Hibiclens 4% Top Soln) 1 applic [employer] TOPICAL ; Start 02/09/18 at 16:00; Stop 02/16/18 at 15:59 Linezolid (Zyvox) 600 mg Q12HR PO Last administered on 02/14/18at 09:03; Start 02/10/18 at 14:30 Ondansetron HCl (Zofran Inj) 8 mg Q6HR PRN IV PUSH NAUSEA AND NOT ABLE TO TAKE PO; Start 02/10/18 at 16:00; Status UNV Ondansetron HCl (Zofran Odt) 8 mg Q6H PRN PO NAUSEA AND ABLE TO TAKE PO Last administered on 02/12/18at 22:56; Start 02/10/18 at 16:00 Diphenhydramine HCl (Benadryl) 50 mg Q6H PRN PO ALLERIC REACTION; Start at 16:00 Ondansetron HCl 8 mg/Dextrose 54 ml @ 216 mls/hr Q6H PRN IV PUSH NAUSEA AND NOT ABLE TO TAKE PO; Start 02/10/18 at 16:15 Potassium Chloride (KCl) 60 meq ONCE ONCE PO Last administered on 02/11/18at 12: 53; Start 02/11/18 at 13:15; Stop 02/11/18 at 13:16; Status DC Potassium Chloride (KCl) 60 meq ONCE ONCE PO Last administered on 02/12/18at 15: 37; Start 02/12/18 at 14:45; Stop 02/12/18 at 14:47; Status DC Bupivacaine HCl (Marcaine Pf 0.5% Inj) 30 ml STK-MED ONCE .ROUTE ; Start at 13:48; Stop 02/13/18 at 13:49; Status DC Sugammadex Sodium (Bridion Inj) 200 mg STK-MED ONCE IV PUSH ; Start 02/13/18 at 13:52; Stop 02/13/18 at 13:53; Status DC Acetaminophen 100 ml @ As Directed STK-MED ONCE IV ; Start 02/13/18 at 13:53; Stop 02/13/18 at 13:54; Status DC Vancomycin HCl (Vancomycin Inj) 1,000 mg STK-MED ONCE .ROUTE ; Start 02/13/18 at 13:55; Stop 02/13/18 at 13:56; Status DC Potassium Chloride 100 ml @ 50 mls/hr Q2H IV Last administered on 02/13/18at 16 :47; Start 02/13/18 at 16:30; Stop 02/13/18 at 22:29; Status DC Potassium Chloride 100 ml @ 50 mls/hr Q2H IV Last administered on 02/14/18at 09 :01; Start 02/14/18 at 09:00; Stop 02/14/18 at 12:59; Status DC Bupivacaine HCl (Marcaine Pf 0.5% Inj) 30 ml STK-MED ONCE .ROUTE ; Start at 09:51; Stop 02/14/18 at 09:52; Status DC Cefazolin Sodium (Ancef Inj) 2,000 mg STK-MED ONCE .ROUTE ; Start 02/14/18 at 09 :51; Stop 02/14/18 at 09:52; Status DC Cefazolin Sodium (Ancef Inj) 1,000 mg STK-MED ONCE .ROUTE ; Start 02/14/18 at 09 :52; Stop 02/14/18 at 09:53; Status DC Vancomycin HCl (Vancomycin Inj) 2,000 mg STK-MED ONCE .ROUTE ; Start 02/14/18 at 13:11; Stop 02/14/18 at 13:12; Status DC A/P Problem List: (1) Cellulitis of chest wall ICD Code: L03.313 - Cellulitis of chest wall Status: Acute (2) SHABANA (acute kidney injury) ICD Code: N17.9 - Acute kidney failure, unspecified Assessment and Plan 42-year-old female with history of lupus, Brugada syndrome, pacemaker/ defibrillator, hypothyroidism, CKD stage III, presents with concern for sternal wound infection and constant chest pain. Recurrent AICD Infection with Sternal Wound Cellulitis: afebrile, no leukocytosis, however +tachycardia and wound with purulent drainage. CXR reviewed and unremarkable. Need to rule out abscess vs recurrent bacteremia. -Chest CT reviewed, shows external cardiac pacer/defibrillator with a single lead that courses from the left midaxillary implanted unit and has a 90deg bend cephalad at the level of the lower sternum and with an adjacent small apparent fluid collection. Otherwise mildly edematous/indurated soft tissues around the lead. No CT evidence of osteomyelitis. No acute abnormality demonstrated within the thoracic cavity. -Wound and Blood cultures collected and pending -Continue antibiotics with IV Vanco, pharmacy consulted -Tylenol prn fever, continue patient's Oramorph prn pain MORPHINE IV FOR BREAKTHRU PAIN -Consult patient's progressive care unit registered nurse Dr. Calle, likely needs AICD removal -Consult ID, discussed with Dr. Guerra, appreciate recommendations -Obtain records from previous hospitalization at , including ID Dr. Gardner notes, echo, imaging, cultures, etc. -Chest U/S and Echocardiogram ordered -Admit to inpatient [facility] per [facility]. Guerra [facility] AND DR CALLE Needs AICD out-SCHEDULED FOR MONDAY Positive MRSA/ [employer]- WILL DEFER TO ID Atypical Chest Pain: suspect secondary to infection, pain reproducible with palpation and movement -Continue patient's Oramorph 15mg q8h prn pain -monitor on telemetry Brugada Syndrome: s/p pacer/AICD -monitor on telemetry -cardiology consulted as above SHABANA on CKD stage III: suspect secondary to dehydration. Cr 1.99, previously 1.24 on 01/24/18. -give IVF hydration -monitor BMP, improving with Cr 1.24 -avoid nephrotoxins Hypokalemia: patient with chronic history of hypokalemia, on KCl 40meq tid at home. 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 labs Discharge Planning PENDING ID AND DEVON AND DR CALLE CLEARANCE Nathaniel Sun DO Feb 14, 2018 13:36
--- NOTE | 2018-02-14 14:12 | PD.CAR.PN ---
CVT Progress Note Subjective/Hospital Course: 42-year-old female with past medical history significant for lupus, gastroparesis, Crohn's disease, hypothyroidism, chronic kidney disease stage III , recurrent hypokalemia, anxiety, on chronic immunosuppressive and Brugada syndrome status post AICD placement October 2017 with history of previous device infection who presents to [facility] with complaints of chest pain secondary to sternal wound infection. Her assistant principal is Dr. Cervantes who placed an AICD device in October of 2017. Patient states she started to feel unwell the end of November. In December 2017, she was admitted to [facility], completed 1 week of IV antibiotics followed by removal of the AICD device and had a subsequent treatment of antibiotics 1 week. She then had an AICD device reimplanted and completed 1 month of IV antibiotics. Patient is unsure but thinks that she was treated with Levaquin. She was not discharged on any oral antibiotic treatment. At that time, she was managed by infectious disease physician Dr. Gardner. She was recently admitted 01/18-01/24 for syncope, bradycardia, SHABANA, s/p dopamine drip, then heart rate stabilized and she was cleared by cardiology. At that time, she had a small wound overlying the sternum and was given Bactroban at discharge. About 2 weeks ago, she began developing left axillary pain over the site of her AICD device that radiated underneath the left breast into the mid sternum. She has had a poorly healing sore over the mid chest that began to enlarge as well as increased swelling and hardness underneath the left breast. Yesterday the sore opened up with purulent drainage. She reports chills but denies any fever or sweats. She denies any cough or shortness of breath. She denies any nausea or vomiting. States that she has chronic abdominal pain secondary to Crohn's disease and gastroparesis that is unchanged. She has a history of MRSA infection left axilla many years ago but states she's been tested multiple times for MRSA since then and is always been negative. She is not sure of what her cultures were that she grew when admitted at [facility] in December with infection of the AICD device but is certain it was not MRSA. 02/09 pt still has increasing tenderness and swelling left breast and axilla pt has been seen by ID and recommend removal of ICD and leads/ Dr Cervantes agreeable and will proceed on 02/13 still having pain to ICD pacer site/ + swelling for OR tomorrow 02/13 OR cancelled today, rescheduled for mon case 02/14 for surgery today per nursing / they found a bottle of Imodium in her room she states that she was not taking, however records from [facility] they found a syringe of Imodium , also pt has been constantly pushing and squeezing her ICD site, under left breast and trying to express drainage from sternal wound Psych has been consulted Objective: Vital Signs Date Time Temp Pulse Resp B/P (MAP) Pulse Ox O2 Delivery O2 Flow Rate FiO2 02/14/18 12:00 56 02/14/18 11:31 98.3 64 18 156/83 (107) 96 02/14/18 11:00 58 02/14/18 10:06 16 02/14/18 10:00 58 02/14/18 09:00 62 02/14/18 08:00 64 02/14/18 07:36 98.6 70 16 147/71 (96) 97 02/14/18 07:00 65 02/14/18 06:48 16 02/14/18 04:00 65 02/14/18 02:00 66 02/14/18 01:00 64 02/14/18 00:07 70 16 95/57 (70) 99 02/14/18 00:00 69 02/14/18 00:00 70 02/13/18 23:00 80 02/13/18 22:00 72 02/13/18 21:00 74 02/13/18 20:12 71 16 93/62 (72) 98 02/13/18 20:00 70 02/13/18 20:00 70 02/13/18 19:00 82 02/13/18 15:00 98.2 68 18 110/72 (85) 99 Labs: Laboratory Tests Test 02/14/18 05:35 White Blood Count 6.1 TH/MM3 (4.0-11.0) Red Blood Count 3.60 MIL/MM3 (4.00-5.30) Hemoglobin 10.1 GM/DL (11.6-15.3) Hematocrit 30.2 % (35.0-46.0) Mean Corpuscular Volume 83.7 FL (80.0-100.0) Mean Corpuscular Hemoglobin 28.0 PG (27.0-34.0) Mean Corpuscular Hemoglobin Concent 33.5 % (32.0-36.0) Red Cell Distribution Width 17.3 % (11.6-17.2) Platelet Count 174 TH/MM3 (150-450) Mean Platelet Volume 7.5 FL (7.0-11.0) Neutrophils (%) (Auto) 47.5 % (16.0-70.0) Lymphocytes (%) (Auto) 37.1 % (9.0-44.0) Monocytes (%) (Auto) 9.7 % (0.0-8.0) Eosinophils (%) (Auto) 4.9 % (0.0-4.0) Basophils (%) (Auto) 0.8 % (0.0-2.0) Neutrophils # (Auto) 2.9 TH/MM3 (1.8-7.7) Lymphocytes # (Auto) 2.2 TH/MM3 (1.0-4.8) Monocytes # (Auto) 0.6 TH/MM3 (0-0.9) Eosinophils # (Auto) 0.3 TH/MM3 (0-0.4) Basophils # (Auto) 0.0 TH/MM3 (0-0.2) CBC Comment DIFF FINAL Differential Comment Blood Urea Nitrogen 19 MG/DL (7-18) Creatinine 1.13 MG/DL (0.50-1.00) Random Glucose 101 MG/DL (74-106) Total Protein 6.1 GM/DL (6.4-8.2) Albumin 2.7 GM/DL (3.4-5.0) Calcium Level 8.5 MG/DL (8.5-10.1) Phosphorus Level 3.9 MG/DL (2.5-4.9) Magnesium Level 2.0 MG/DL (1.5-2.5) Alkaline Phosphatase 66 U/L (45-117) Aspartate Amino Transf (AST/SGOT) 12 U/L (15-37) Alanine Aminotransferase (ALT/SGPT) 19 U/L (10-53) Total Bilirubin 0.1 MG/DL (0.2-1.0) Sodium Level 143 MEQ/L (136-145) Potassium Level 3.9 MEQ/L (3.5-5.1) Chloride Level 107 MEQ/L (98-107) Carbon Dioxide Level 29.4 MEQ/L (21.0-32.0) Anion Gap 7 MEQ/L (5-15) Estimat Glomerular Filtration Rate 53 ML/MIN (>89) Result Diagram: 02/14/18 0535 02/14/18 0535 (1) Brugada syndrome (2) Post traumatic stress disorder (PTSD) (3) Lupus (systemic lupus erythematosus) (4) AICD generator infection Plan: for removal on 02/14 (5) Infection of automatic implantable cardioverter-defibrillator lead Plan: [employer] rep notified 02/09 Michael (6) Munchausen syndrome Plan: psych consult Tigist Adorno Feb 14, 2018 14:12
[2018-02-14] MEDS ORDERED: ACETAMINOPHEN/HYDROcodone 325 MG/5 MG TAB PO PRN (14:30)
[2018-02-14] MEDS ORDERED: Post-op Orders (for Pharmacy) OTHER ONE (14:30)
[2018-02-14] MEDS ORDERED: MAGNESIUM HYDROXIDE SUSP 30 ML CUP PO PRN (14:30)
[2018-02-14] MEDS ORDERED: ACETAMINOPHEN 325 MG TAB PO PRN (14:30)
[2018-02-14] MEDS ORDERED: DO NOT ADM ANY ANTICOAGULANT DRUGS PRN (14:40)
[2018-02-14] MEDS ORDERED: HYDROmorphone HCL PF 2 MG/ML VIAL ONE (14:44)
[2018-02-14] MEDS ORDERED: MIDAZOLAM HCL 2 MG/2 ML VIAL ONE (14:47)
[2018-02-14] MEDS ORDERED: *MEPERIDINE 25 MG INJ VIAL PERIprocedural Use ONLY ONE (14:51)
[2018-02-14] MEDS ORDERED: *morphine SULFATE 8 MG/ML PERIprocedure ONLY ONE (14:51)
[2018-02-14] MEDS ORDERED: *hydrOXYzine 25 MG VIAL PERIprocedural Use ONLY IM ONE (15:13)
--- NOTE | 2018-02-14 16:31 | RADRPT ---
EXAM DATE/TIME: 02/14/2018 15:09 [facility] COMPARISON: CHEST SINGLE AP, January 17, 2018, 22:37. INDICATIONS : Post thoracotomy. MEDICAL HISTORY : Renal failure. Kidney stones. Lupus. SURGICAL HISTORY : Pacemaker. ENCOUNTER: Initial ACUITY: 1 day PAIN SCORE: Non-responsive. LOCATION: Bilateral chest FINDINGS: A single view of the chest demonstrates the lungs to be symmetrically aerated without evidence of mas s, infiltrate or effusion. The cardiomediastinal contours are unremarkable. Osseous structures are intact. CONCLUSION: No acute disease. Nathaniel Porter MD FACR on February 14, 2018 at 16:28 Board Certified Radiologist. This report was verified electronically.
--- NOTE | 2018-02-14 18:16 | MP ---
cc: Yousif Preciado MD, Sohit K MD Seide, Hanscy MD Nemani,Lay DICK DATE OF OPERATION: 02/14/2018 PREOPERATIVE DIAGNOSES: 1. Left axillary subcutaneous automatic implantable cardioverter-defibrillator device placement with presternal lead. 2. Infected lead. 3. Previous device and lead extraction. POSTOPERATIVE DIAGNOSIS: 1. Left axillary subcutaneous automatic implantable cardioverter-defibrillator device placement with presternal lead. 2. Infected lead. 3. Previous device and lead extraction. PROCEDURE PERFORMED: 1. Removal of AICD device and extraction of presternal lead. 2. Placement of wound VAC. SURGEON: Yousif Preciado MD WAITER/WAITRESS FORMAL: Brian Fierro MD. ANESTHESIA: General endotracheal. CUT IN STATION OPERATOR: Ana Lilia Naik CRNA and Tunde Morales MD COUNTS: Needle, sponge, and instrument count correct. DRAINS: None. COMPLICATIONS: None. INDICATIONS FOR PROCEDURE: Ms. Hernandez is a 42-year-old white female status post previous ICD device placement and subsequent extraction for infection who eventually had a left subcutaneous AICD device placed and is now noticed to have a punctate area of drainage from the presternal area with associated fluid collection by CT scan along the ICD lead. She is being brought back to the operating room for removal of the device due to infection. DESCRIPTION OF PROCEDURE: The patient was brought to the operating room and placed supine on the OR table. Following induction of adequate general endotracheal anesthesia and placement of appropriate monitoring devices, the chest, axillae and surrounding areas were prepped and draped in standard sterile fashion. An incision was made overlying the previously well-healed punctate incision where the lead was tunneled and the lead anchor suture removed. The incision overlying the device was then divided and the device exposed. The device anchoring stitch was removed and the device was extracted with the lead intact without any difficulty. Serous and gelatinous fluid was encountered in the pocket, which was sent for cultures. Copious irrigation with antibiotic solution was performed and strict hemostasis assured. At this point, the inferior sternal incision was closed in 2 layers and the generator device incision was packed with a wound VAC attached to a suction device. The patient tolerated the procedure well and was transferred to recovery room following extubation in the operating room in stable condition. MD LA Marina//светлана , 05:31 PM , 05:59 PM FRANCISCO J
[2018-02-14] MEDS: DOCUSATE CALCIUM 240 MG CAP PO SCH (21:00)
[2018-02-14] MEDS: PANTOPRAZOLE SOD 40 MG DELAYED RELEASE TAB PO SCH (21:51)
[2018-02-15] VITALS (28 sets, daily range): BP systolic 101–160; BP diastolic 57–85; PULSE 58–85; RESP 14–18; TEMP 98.8–99.4; O2SAT 97–100
[2018-02-15] MEDS: MORPHINE SULFATE 4 MG/ML INJ IV PUSH PRN ×2 (02:24→09:25)
[2018-02-15] MEDS: DIAZEPAM 10 MG TAB PO PRN ×2 (04:35→13:33)
--- NOTE | 2018-02-15 04:55 | RADRPT ---
EXAM DATE/TIME: 02/15/2018 03:49 [facility] COMPARISON: CHEST SINGLE AP, February 14, 2018, 15:09. INDICATIONS : Shortness of breath, possible pulmonary disease. MEDICAL HISTORY : Renal calculi. Renal failure, acute. Lupus. SURGICAL HISTORY : Pacemaker. Thoracotomy ENCOUNTER: Subsequent ACUITY: 2 days PAIN SCORE: 0/10 LOCATION: Bilateral chest FINDINGS: A single view of the chest demonstrates the lungs to be symmetrically aerated without evidence of mas s, infiltrate or effusion. The cardiomediastinal contours are unremarkable. Osseous structures are intact. CONCLUSION: No acute disease. Clayton Leonard MD on February 15, 2018 at 4:54 Board Certified Radiologist. This report was verified electronically.
[2018-02-15] MEDS: LEVOTHYROXINE SODIUM 125 MCG TAB PO SCH (07:14)
[2018-02-15] MEDS: MORPHINE SULFATE 15 MG CONTROLLED RELEASE TAB PO PRN ×2 (07:31→15:05)
[2018-02-15 07:40] LABS: AUTOMATED NEUTROPHIL # 3.4 TH/MM3 (1.8-7.7); BASOPHIL % 0.8 % (0.0-2.0); EOSINOPHIL # 0.2 TH/MM3 (0-0.4); EOSINOPHIL % 4.3 % (0.0-4.0); HEMOGLOBIN 10.4 GM/DL (11.6-15.3); LYMPH % 24.2 % (9.0-44.0); LYMPHOCYTE # 1.3 TH/MM3 (1.0-4.8); MEAN CELL VOLUME 83.1 FL (80.0-100.0); MEAN CORPUSCULAR HEMOGLOBIN 27.8 PG (27.0-34.0); MEAN CORPUSCULAR HGB CONC 33.4 % (32.0-36.0); MEAN PLATELET VOLUME 7.6 FL (7.0-11.0); MONO % 9.2 % (0.0-8.0); MONOCYTE # 0.5 TH/MM3 (0-0.9); NEUT % 61.5 % (16.0-70.0); PLATELET COUNT 166 TH/MM3 (150-450); RED BLOOD COUNT 3.73 MIL/MM3 (4.00-5.30); RED CELL DISTRIBUTION WIDTH 16.9 % (11.6-17.2); WHITE BLOOD COUNT 5.5 TH/MM3 (4.0-11.0)
[2018-02-15 07:58] LABS: ALBUMIN 2.6 GM/DL (3.4-5.0); AST (GOT) 16 U/L (15-37); BICARBONATE 29.1 MEQ/L (21.0-32.0); BLOOD UREA NITROGEN 15 MG/DL (7-18); CALCIUM 8.7 MG/DL (8.5-10.1); CHLORIDE 107 MEQ/L (98-107); CREATININE 1.13 MG/DL (0.50-1.00); GLOMERULAR FILTRATION RATE 53 ML/MIN (>89); GLUCOSE,RANDOM 126 MG/DL (74-106); MAGNESIUM 2.1 MG/DL (1.5-2.5); SODIUM (NA) 142 MEQ/L (136-145)
[2018-02-15 08:03] LABS: ALKALINE PHOSPHATASE 63 U/L (45-117); ALT (GPT) 16 U/L (10-53); PHOSPHORUS 3.6 MG/DL (2.5-4.9); TOTAL BILIRUBIN ADULT 0.2 MG/DL (0.2-1.0)
[2018-02-15] MEDS: CHOLECALCIFEROL (VIT D3) 5000 UNIT CAP PO SCH (09:00)
[2018-02-15] MEDS: POTASSIUM PHOSPHATE MONOBASIC 500 MG TAB PO SCH ×3 (09:25→17:53)
[2018-02-15] MEDS: SPIRONOLACTONE 25 MG TAB PO SCH (09:26)
[2018-02-15] MEDS: LINEZOLID 600 MG TAB PO SCH (09:26)
[2018-02-15] MEDS: FERROUS SULFATE 325 MG (65 MG ELEMENTAL IRON) TAB PO SCH ×2 (09:26→17:53)
[2018-02-15] MEDS: POTASSIUM CHLORIDE 20 MEQ CONTROLLED RELEASE TAB PO SCH ×3 (09:27→17:53)
[2018-02-15] MEDS: SODIUM CHLORIDE 0.9% FLUSH 10 ML FLUSH IV FLUSH SCH (09:27)
[2018-02-15] MEDS: MAGNESIUM OXIDE 400 MG TAB PO SCH (09:27)
[2018-02-15] MEDS: predniSONE 20 MG TAB PO SCH (09:27)
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
--- NOTE | 2018-02-15 14:22 | HHI.IDPN ---
Subjective Subjective Remarks is a 42-year-old female with past medical history significant for lupus, gastroparesis, Crohn's disease, hypothyroidism, chronic kidney disease stage III, recurrent hypokalemia, anxiety, on chronic immunosuppressive and Brugada syndrome status post AICD placement October 2017 with history of previous device infection who presents to [facility] with complaints of chest pain secondary to sternal wound infection. Her nutrition representative is Dr. Cervantes who placed an AICD device in October of 2017. Patient states she started to feel unwell the end of November. In December 2017, she was admitted to [facility], completed 1 week of IV antibiotics followed by removal of the AICD device and had a subsequent treatment of antibiotics 1 week. She then had an AICD device reimplanted and completed 1 month of IV antibiotics. Patient is unsure but thinks that she was treated with Levaquin. She was not discharged on any oral antibiotic treatment. At that time, she was managed by infectious disease physician Dr. Gardner. She was recently admitted 01/18-01/24 for syncope, bradycardia, SHABANA, s/p dopamine drip, then heart rate stabilized and she was cleared by cardiology. At that time, she had a small wound overlying the sternum and was given Bactroban at discharge. About 2 weeks ago, she began developing left axillary pain over the site of her AICD device that radiated underneath the left breast into the mid sternum. She has had a poorly healing sore over the mid chest that began to enlarge as well as increased swelling and hardness underneath the left breast. Yesterday the sore opened up with purulent drainage. She reports chills but denies any fever or sweats. She denies any cough or shortness of breath. She denies any nausea or vomiting. States that she has chronic abdominal pain secondary to Crohn's disease and gastroparesis that is unchanged. She has a history of MRSA infection left axilla many years ago but states she's been tested multiple times for MRSA since then and is always been negative. She is not sure of what her cultures were that she grew when admitted at [facility] in December with infection of the AICD device but is certain it was not MRSA. Infectious disease has been consulted for evaluation and management of recurrent AICD device infection. Notes reviewed She reports pain in the left axilla and left chest. s/p I&D of abscess and removal of AICD external on 02/14/18. No fever or chills No diarrhea afebrile No leukocytosis. Antibiotics Zyvox oral. Lines Left forearm PIV without any evidence of infection Past Medical History Brugada syndrome Crohn's disease Lupus Recurrent hypokalemia Hypothyroidism Chronic kidney disease stage III Anxiety GERD Endometriosis AICD placement Oct 2017 with subsequent removal December 2017 and replacement approximately 3 weeks ago. PEG tube placement/removal Port placement and subsequent removal EGD/colonoscopies Appendectomy Laparotomies Ectopic Cystoscopie Allergies: Coded Allergies: Fish Containing Products (Unverified Allergy, Severe, SWELLING IN THROAT, SOB, 02/06/18) cephalexin (Unverified Allergy, Severe, RASH,SWELLING, 02/06/18) ketorolac (Unverified Allergy, Severe, RASH, 02/06/18) penicillin G (Unverified Allergy, Severe, RASH,SWELLING, 02/06/18) prochlorperazine (Unverified Allergy, Mild, DYSTONIC REACTION, 02/06/18) promethazine (Unverified Allergy, Mild, DYSTONIC REACTION, 02/06/18) gabapentin (Unverified Adverse Reaction, Severe, SEIZURES, 02/06/18) Objective . Vital Signs Date Time Temp Pulse Resp B/P (MAP) Pulse Ox O2 Delivery O2 Flow Rate FiO2 02/15/18 13:00 64 02/15/18 12:00 72 02/15/18 11:00 99.3 85 18 153/66 (95) 97 02/15/18 11:00 70 02/15/18 10:00 76 02/15/18 09:31 14 02/15/18 09:27 16 02/15/18 09:00 82 02/15/18 08:00 68 02/15/18 07:32 99.2 65 16 123/73 (90) 100 02/15/18 07:00 65 02/15/18 06:00 60 02/15/18 05:00 66 02/15/18 04:37 99.4 69 18 101/73 (82) 99 02/15/18 04:04 63 02/15/18 03:00 74 02/15/18 02:00 70 02/15/18 01:00 74 02/15/18 00:30 99.1 69 18 160/70 (100) 99 02/15/18 00:00 68 02/14/18 23:00 66 02/14/18 22:00 74 02/14/18 21:52 98.6 64 18 110/56 (74) 95 02/14/18 21:00 74 02/14/18 20:00 80 02/14/18 19:00 71 02/14/18 18:00 72 02/14/18 17:00 62 02/14/18 16:12 98.6 58 12 137/66 (89) 100 02/14/18 16:00 66 02/14/18 15:50 78 18 129/69 (89) 99 Nasal Cannula 2 02/14/18 15:15 74 18 138/60 (86) 99 Nasal Cannula 2 02/14/18 15:00 57 18 126/57 (80) 100 Nasal Cannula 2 02/14/18 14:45 62 18 132/65 (87) 96 Nasal Cannula 2 02/14/18 14:40 97.6 69 18 132/63 (86) 99 Nasal Cannula 2 . Laboratory Tests Test 02/14/18 05:35 02/15/18 05:52 White Blood Count 6.1 TH/MM3 5.5 TH/MM3 Red Blood Count 3.60 MIL/MM3 3.73 MIL/MM3 Hemoglobin 10.1 GM/DL 10.4 GM/DL Hematocrit 30.2 % 31.0 % Mean Corpuscular Volume 83.7 FL 83.1 FL Mean Corpuscular Hemoglobin 28.0 PG 27.8 PG Mean Corpuscular Hemoglobin Concent 33.5 % 33.4 % Red Cell Distribution Width 17.3 % 16.9 % Platelet Count 174 TH/MM3 166 TH/MM3 Mean Platelet Volume 7.5 FL 7.6 FL Neutrophils (%) (Auto) 47.5 % 61.5 % Lymphocytes (%) (Auto) 37.1 % 24.2 % Monocytes (%) (Auto) 9.7 % 9.2 % Eosinophils (%) (Auto) 4.9 % 4.3 % Basophils (%) (Auto) 0.8 % 0.8 % Neutrophils # (Auto) 2.9 TH/MM3 3.4 TH/MM3 Lymphocytes # (Auto) 2.2 TH/MM3 1.3 TH/MM3 Monocytes # (Auto) 0.6 TH/MM3 0.5 TH/MM3 Eosinophils # (Auto) 0.3 TH/MM3 0.2 TH/MM3 Basophils # (Auto) 0.0 TH/MM3 0.0 TH/MM3 CBC Comment DIFF FINAL DIFF FINAL Differential Comment Laboratory Tests Test 02/14/18 05:35 02/15/18 05:52 Blood Urea Nitrogen 19 MG/DL 15 MG/DL Creatinine 1.13 MG/DL 1.13 MG/DL Random Glucose 101 MG/DL 126 MG/DL Total Protein 6.1 GM/DL 6.0 GM/DL Albumin 2.7 GM/DL 2.6 GM/DL Calcium Level 8.5 MG/DL 8.7 MG/DL Phosphorus Level 3.9 MG/DL 3.6 MG/DL Magnesium Level 2.0 MG/DL 2.1 MG/DL Alkaline Phosphatase 66 U/L 63 U/L Aspartate Amino Transf (AST/SGOT) 12 U/L 16 U/L Alanine Aminotransferase (ALT/SGPT) 19 U/L 16 U/L Total Bilirubin 0.1 MG/DL 0.2 MG/DL Sodium Level 143 MEQ/L 142 MEQ/L Potassium Level 3.9 MEQ/L 3.6 MEQ/L Chloride Level 107 MEQ/L 107 MEQ/L Carbon Dioxide Level 29.4 MEQ/L 29.1 MEQ/L Anion Gap 7 MEQ/L 6 MEQ/L Estimat Glomerular Filtration Rate 53 ML/MIN 53 ML/MIN Microbiology Date/Time Source Procedure Growth Status 02/14/18 15:49 Fluid Other Fungal Smear Pending Received 02/14/18 15:49 Fluid Other Fungal Culture Pending Received 02/14/18 15:49 Fluid Other Acid Fast Stain Pending Received 02/14/18 15:49 Fluid Other Mycobacterial Culture Pending Received 02/14/18 13:57 Wound Other Gram Stain - Final Resulted 02/14/18 13:57 Wound Culture - Preliminary Staphylococcus Aureus Resulted Imaging Last Impressions Soft Tissue Ultrasound 02/07/18 0000 Signed Impressions: Service Date/Time: Wednesday, February 07, 2018 11:15 - CONCLUSION: There is a dominant heterogeneous echotexture fluid collection in the left axilla measuring in excess of 7 cm which has a linear hyperechoic structure coursing through it. There are also some scattered smaller areas of fluid in the anterior chest wall all measuring 1 cm or less. Vic Smith MD Chest CT 02/06/18 0000 Signed Impressions: Service Date/Time: Tuesday, February 06, 2018 10:52 - CONCLUSION: External cardiac pacer/defibrillator with a single lead. The lead courses from the left midaxillary implanted unit and has a 90 bend cephalad at the level of the lower sternum and with an adjacent small apparent fluid collection. Otherwise mildly edematous/indurated soft tissues around the lead. No CT evidence of osteomyelitis. No acute abnormality demonstrated within the thoracic cavity. Brian Arrieta MD Chest X-Ray 02/05/18 0000 Signed Impressions: Service Date/Time: Monday, February 05, 2018 19:55 - CONCLUSION: 1. No active disease. Defibrillator wire overlies the left hemithorax anteriorly. Hay Day MD Physical Exam GENERAL: This is a well-nourished, well-developed female patient, in no apparent distress. Awake and alert. Appears comfortable. SKIN: Warm and dry. Mild erythema over fourth digit of the left foot, chronic. HEENT: Normocephalic. Pupils equal round and reactive. Nose without bleeding. Airway patent. NECK: Trachea midline. No JVD. Supple. CARDIOVASCULAR: Regular rate and rhythm without murmurs, gallops, or rubs. CHEST: (+)1cm distal sternal open wound with scant amount of greenish drainage noted on dressing. Not able to express any fluid with palpation of the left breast. Mild surrounding edema, tender to palpation. Left lateral axillary region with tender palpable subcutaneous AICD device with mild edema and tenderness with induration to palpation. Tenderness and induration along the course of the lead under the left breast. Left lateral upper chest surgical incision well approximated, raised, erythematous but does not appear to be infected. Well healed area of previous port site on right anterior chest. RESPIRATORY: Clear to auscultation. Breath sounds equal bilaterally. No wheezes , rales, or rhonchi. GASTROINTESTINAL: Abdomen soft, non-tender, nondistended. Bowel Sounds normoactive x4. MUSCULOSKELETAL: Extremities without clubbing, cyanosis, or edema. NEUROLOGICAL: Awake and alert. Oriented to time, place, person. No focal neuro deficit. Moves all extremities. Normal speech. PSYCHIATRIC: Appropriate mood and affect. Normal insight and judgment. Assessment & Plan Remarks Recurrent AICD/lead infection Chest wall abscess: superficial culture with MRSA Deeper cultures with MSSA. No evidence of vegetation. 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 Immunocompromised with chronic prednisone use. Crohn's disease Lupus Hypothyroidism Possible factitious disorder: per psych evaluation. Recommendations: Continue oral zyvox. Follow wound cultures Has a wound vac in place. Will need Life Vest on discharge eventually. Do not anticipate IV antibiotics at present time. Lay Guerra MD Feb 15, 2018 14:22
[2018-02-15] MEDS ORDERED: DEFIB EXTERNAL (15:39)
--- NOTE | 2018-02-15 15:42 | HHI.FF ---
Face to Face Verification Diagnosis: (1) s/p extrraaction of ICD/ epicardial lead (2) Brugada syndrome (3) Infection of automatic implantable cardioverter-defibrillator lead Home Health Nursing Order: Medication education-adverse effect Wound care and dressing changes Nursing assessment with vital signs Instructions: Thoracic Surgery patients Mandatory frequency Assess and evaluation, 2-3 x a week for one week Initial visit 1. Review post chest surgery instructions chest precautions, Activity, Elastic hose, Incision care, Driving, Incentive spirometry, Smoking, Crooks , Work and other) 2. Need Betadine to paint incision 3. Medication reconciliation 4. Importance of follow up care/ check on appointments 5. Make calendar record temperature daily 6. When to call Home nurse, review instructions, phone list 7. Incentive Spirometry, demonstration Visit 1- Begin discharge instruction for patient family and/ or caregiver using teach back method- 1. Signs and symptoms of infection 2. Disease characteristics 3. Medicines and side effects 4. Foods and nutrition/ appetite 5. Infection control/ hand washing/ hygiene Visit 2- Continue teaching 1. Discharge instructions- include additional information on smoking cessation , Visit 3- Continue teaching- 1. Cough and deep breathing, incision monitoring. For any questions please call : / [facility] Cardiothoracic Surgery Incentive spirometry Q1 hr x 10, while awake, also use acapella device hourly whole awake Sternal Breast Bone Precautions: NO pushing or pulling, ( pt must use sternal pillow to support chest with all activities and with coughing ( takes up to 3 months breast bone to heal ) All females to wear sternal bra , launder as needed Daily incision care: ok to shower daily, no tub bath. Wash all incisions with liquid dial soap, clean wash cloth to each site, rinse and pat dry. Observe for any signs of infection, such as drainage which is dark yellow, thao, green or foul smelling. Immediately report to the surgeon any drainage from the chest incision, or legs, and for any abnormal drainage from the chest tube sites. Notify surgeon if any temp >101.5 degrees F. When specialty dressing removed/ or if you do not have one, continue to shower daily as above, then rinse and pat incision dry and paint with betadine daily x 5 days. Allow steri strips to fall off if you have any. Avoid lotions, creams, salves, oils, etc. 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 Preciado & Dr. Goyal), After Hours / Nights (5pm -8am) Weekends and Holidays Please call [facility] ([facility]) Charge Nurse I have seen patient Brisa Hernandez on 02/15/18. My clinical findings support the need for the requested home health care services because: Deconditioned w/ increased weakness I certify that my clinical findings support that this patient is homebound because: Post-op weakness (wound vac ) Tigist Adorno Feb 15, 2018 15:42
--- NOTE | 2018-02-15 15:46 | PD.CAR.PN ---
CVT Progress Note Subjective/Hospital Course: 42-year-old female with past medical history significant for lupus, gastroparesis, Crohn's disease, hypothyroidism, chronic kidney disease stage III , recurrent hypokalemia, anxiety, on chronic immunosuppressive and Brugada syndrome status post AICD placement October 2017 with history of previous device infection who presents to [facility] with complaints of chest pain secondary to sternal wound infection. Her advanced manufacturing associate is Dr. Cervantes who placed an AICD device in October of 2017. Patient states she started to feel unwell the end of November. In December 2017, she was admitted to [facility], completed 1 week of IV antibiotics followed by removal of the AICD device and had a subsequent treatment of antibiotics 1 week. She then had an AICD device reimplanted and completed 1 month of IV antibiotics. Patient is unsure but thinks that she was treated with Levaquin. She was not discharged on any oral antibiotic treatment. At that time, she was managed by infectious disease physician Dr. Gardner. She was recently admitted 01/18-01/24 for syncope, bradycardia, SHABANA, s/p dopamine drip, then heart rate stabilized and she was cleared by cardiology. At that time, she had a small wound overlying the sternum and was given Bactroban at discharge. About 2 weeks ago, she began developing left axillary pain over the site of her AICD device that radiated underneath the left breast into the mid sternum. She has had a poorly healing sore over the mid chest that began to enlarge as well as increased swelling and hardness underneath the left breast. Yesterday the sore opened up with purulent drainage. She reports chills but denies any fever or sweats. She denies any cough or shortness of breath. She denies any nausea or vomiting. States that she has chronic abdominal pain secondary to Crohn's disease and gastroparesis that is unchanged. She has a history of MRSA infection left axilla many years ago but states she's been tested multiple times for MRSA since then and is always been negative. She is not sure of what her cultures were that she grew when admitted at [facility] in December with infection of the AICD device but is certain it was not MRSA. 02/09 pt still has increasing tenderness and swelling left breast and axilla pt has been seen by ID and recommend removal of ICD and leads/ Dr Cervantes agreeable and will proceed on 02/13 still having pain to ICD pacer site/ + swelling for OR tomorrow 02/13 OR cancelled today, rescheduled for mon case 02/14 for surgery today per nursing / they found a bottle of Imodium in her room she states that she was not taking, however records from [facility] they found a syringe of Imodium , also pt has been constantly pushing and squeezing her ICD site, under left breast and trying to express drainage from sternal wound Psych has been consulted 02/15 pt doing fair, still c/o of pain surgical site wound vac left lateral chest / approximately 50cc bloody drainage Objective: GENERAL: SKIN: Warm and dry.wound vac left lateral chest wall dressing mid sternum HEAD: Normocephalic. EYES: No scleral icterus. No injection or drainage. NECK: Supple, trachea midline. No JVD or lymphadenopathy. CARDIOVASCULAR: Regular rate and rhythm without murmurs, gallops, or rubs. RESPIRATORY: Breath sounds equal bilaterally. No accessory muscle use. GASTROINTESTINAL: Abdomen soft, non-tender, nondistended. MUSCULOSKELETAL: No cyanosis, or edema. BACK: Nontender without obvious deformity. No CVA tenderness. Vital Signs Date Time Temp Pulse Resp B/P (MAP) Pulse Ox O2 Delivery O2 Flow Rate FiO2 02/15/18 15:06 98.8 72 14 152/85 (107) 99 02/15/18 15:00 67 02/15/18 14:00 68 02/15/18 13:00 64 02/15/18 12:00 72 02/15/18 11:00 99.3 85 18 153/66 (95) 97 02/15/18 11:00 70 02/15/18 10:00 76 02/15/18 09:31 14 02/15/18 09:27 16 02/15/18 09:00 82 02/15/18 08:00 68 02/15/18 07:32 99.2 65 16 123/73 (90) 100 02/15/18 07:00 65 02/15/18 06:00 60 02/15/18 05:00 66 02/15/18 04:37 99.4 69 18 101/73 (82) 99 02/15/18 04:04 63 02/15/18 03:00 74 02/15/18 02:00 70 02/15/18 01:00 74 02/15/18 00:30 99.1 69 18 160/70 (100) 99 02/15/18 00:00 68 02/14/18 23:00 66 02/14/18 22:00 74 02/14/18 21:52 98.6 64 18 110/56 (74) 95 02/14/18 21:00 74 02/14/18 20:00 80 02/14/18 19:00 71 02/14/18 18:00 72 02/14/18 17:00 62 02/14/18 16:12 98.6 58 12 137/66 (89) 100 02/14/18 16:00 66 02/14/18 15:50 78 18 129/69 (89) 99 Nasal Cannula 2 Labs: Laboratory Tests Test 02/15/18 05:52 White Blood Count 5.5 TH/MM3 (4.0-11.0) Red Blood Count 3.73 MIL/MM3 (4.00-5.30) Hemoglobin 10.4 GM/DL (11.6-15.3) Hematocrit 31.0 % (35.0-46.0) Mean Corpuscular Volume 83.1 FL (80.0-100.0) Mean Corpuscular Hemoglobin 27.8 PG (27.0-34.0) Mean Corpuscular Hemoglobin Concent 33.4 % (32.0-36.0) Red Cell Distribution Width 16.9 % (11.6-17.2) Platelet Count 166 TH/MM3 (150-450) Mean Platelet Volume 7.6 FL (7.0-11.0) Neutrophils (%) (Auto) 61.5 % (16.0-70.0) Lymphocytes (%) (Auto) 24.2 % (9.0-44.0) Monocytes (%) (Auto) 9.2 % (0.0-8.0) Eosinophils (%) (Auto) 4.3 % (0.0-4.0) Basophils (%) (Auto) 0.8 % (0.0-2.0) Neutrophils # (Auto) 3.4 TH/MM3 (1.8-7.7) Lymphocytes # (Auto) 1.3 TH/MM3 (1.0-4.8) Monocytes # (Auto) 0.5 TH/MM3 (0-0.9) Eosinophils # (Auto) 0.2 TH/MM3 (0-0.4) Basophils # (Auto) 0.0 TH/MM3 (0-0.2) CBC Comment DIFF FINAL Differential Comment Blood Urea Nitrogen 15 MG/DL (7-18) Creatinine 1.13 MG/DL (0.50-1.00) Random Glucose 126 MG/DL (74-106) Total Protein 6.0 GM/DL (6.4-8.2) Albumin 2.6 GM/DL (3.4-5.0) Calcium Level 8.7 MG/DL (8.5-10.1) Phosphorus Level 3.6 MG/DL (2.5-4.9) Magnesium Level 2.1 MG/DL (1.5-2.5) Alkaline Phosphatase 63 U/L (45-117) Aspartate Amino Transf (AST/SGOT) 16 U/L (15-37) Alanine Aminotransferase (ALT/SGPT) 16 U/L (10-53) Total Bilirubin 0.2 MG/DL (0.2-1.0) Sodium Level 142 MEQ/L (136-145) Potassium Level 3.6 MEQ/L (3.5-5.1) Chloride Level 107 MEQ/L (98-107) Carbon Dioxide Level 29.1 MEQ/L (21.0-32.0) Anion Gap 6 MEQ/L (5-15) Estimat Glomerular Filtration Rate 53 ML/MIN (>89) Result Diagram: 02/15/18 0552 02/15/18 0552 (1) Brugada syndrome Plan: will need life vest at discharge (2) Post traumatic stress disorder (PTSD) (3) Lupus (systemic lupus erythematosus) (4) AICD generator infection Plan: for removal on 02/14 (5) Infection of automatic implantable cardioverter-defibrillator lead Plan: ICD and epicardial leads removed (6) Munchausen syndrome Plan: psych consult Tigist Adorno Feb 15, 2018 15:46
--- NOTE | 2018-02-15 16:24 | HHI.PR ---
Subjective Remarks awake and alert appears comfortable but easily winced with barely touching site no abdoinal pain no chills denies any urinary symptoms Objective Vitals Vital Signs Date Time Temp Pulse Resp B/P (MAP) Pulse Ox O2 Delivery O2 Flow Rate FiO2 02/15/18 15:06 98.8 72 14 152/85 (107) 99 02/15/18 15:00 67 02/15/18 14:00 68 02/15/18 13:00 64 02/15/18 12:00 72 02/15/18 11:00 99.3 85 18 153/66 (95) 97 02/15/18 11:00 70 02/15/18 10:00 76 02/15/18 09:31 14 02/15/18 09:27 16 02/15/18 09:00 82 02/15/18 08:00 68 02/15/18 07:32 99.2 65 16 123/73 (90) 100 02/15/18 07:00 65 02/15/18 06:00 60 02/15/18 05:00 66 02/15/18 04:37 99.4 69 18 101/73 (82) 99 02/15/18 04:04 63 02/15/18 03:00 74 02/15/18 02:00 70 02/15/18 01:00 74 02/15/18 00:30 99.1 69 18 160/70 (100) 99 02/15/18 00:00 68 02/14/18 23:00 66 02/14/18 22:00 74 02/14/18 21:52 98.6 64 18 110/56 (74) 95 02/14/18 21:00 74 02/14/18 20:00 80 02/14/18 19:00 71 02/14/18 18:00 72 02/14/18 17:00 62 I/O 02/14/18 02/14/18 02/14/18 02/15/18 02/15/18 02/15/18 07:00 15:00 23:00 07:00 15:00 23:00 Intake Total 240 ml 250 ml 0 ml 460 ml Output Total 1360 ml 50 ml 450 ml 1200 ml Balance -1120 ml 200 ml -450 ml -740 ml Intake Oral 240 ml 0 ml 460 ml Other 250 ml Output Urine Total 1360 ml 450 ml 1200 ml Estimated Blood Loss 50 ml Result Diagram: 02/15/18 0552 02/15/18 0552 Imaging Last Impressions Chest X-Ray 02/15/18 0500 Signed Impressions: Service Date/Time: February 03:49 - CONCLUSION: No acute disease. Clayton Leonard MD Upper Extremity Ultrasound 02/10/18 0000 Signed Impressions: Service Date/Time: Saturday, February 10, 2018 09:58 - CONCLUSION: There is extensive area of occlusive and nonocclusive clot identified within the right upper extremity as noted above.. Tigist Vega MD Soft Tissue Ultrasound 02/07/18 0000 Signed Impressions: Service Date/Time: Wednesday, February 07, 2018 11:15 - CONCLUSION: There is a dominant heterogeneous echotexture fluid collection in the left axilla measuring in excess of 7 cm which has a linear hyperechoic structure coursing through it. There are also some scattered smaller areas of fluid in the anterior chest wall all measuring 1 cm or less. Vic Smith MD Chest CT 02/06/18 0000 Signed Impressions: Service Date/Time: Tuesday, February 06, 2018 10:52 - CONCLUSION: External cardiac pacer/defibrillator with a single lead. The lead courses from the left midaxillary implanted unit and has a 90 bend cephalad at the level of the lower sternum and with an adjacent small apparent fluid collection. Otherwise mildly edematous/indurated soft tissues around the lead. No CT evidence of osteomyelitis. No acute abnormality demonstrated within the thoracic cavity. Brian Arrieta MD Objective Remarks awake and alert, no acute distress anicteric no nuhcal rigidity VAC in place- no surrounding erythema regular rhythm no rales abdomen soft extremities no edema A/P Problem List: (1) Cellulitis of chest wall ICD Code: L03.313 - Cellulitis of chest wall Status: Acute (2) SHABANA (acute kidney injury) ICD Code: N17.9 - Acute kidney failure, unspecified Assessment and Plan 42-year-old female with history of lupus, Brugada syndrome, pacemaker/ defibrillator, hypothyroidism, CKD stage III, presents with concern for sternal wound infection and constant chest pain. Recurrent AICD Infection with Sternal Wound Cellulitis: afebrile, no leukocytosis, however +tachycardia and wound with purulent drainage. CXR reviewed and unremarkable. Need to rule out abscess vs recurrent bacteremia. -Chest CT reviewed, shows external cardiac pacer/defibrillator with a single lead that courses from the left midaxillary implanted unit and has a 90deg bend cephalad at the level of the lower sternum and with an adjacent small apparent fluid collection. Otherwise mildly edematous/indurated soft tissues around the lead. No CT evidence of osteomyelitis. No acute abnormality demonstrated within the thoracic cavity. Continue oral zyvox.- ID - Dr. Guerra ff Has a wound vac in place. Atypical Chest Pain: suspect secondary to infection, pain reproducible with palpation and movement Drug seeking behavior - decrease Morphine dose - prn -monitor on telemetry Brugada Syndrome: s/p pacer/AICD -monitor on telemetry SHABANA on CKD stage III: suspect secondary to dehydration. Cr 1.99, previously 1.24 on 01/24/18. -give IVF hydration -monitor BMP, improving with Cr 1.24 -avoid nephrotoxins Hypokalemia: patient with chronic history of hypokalemia K 3.1 upon arrival -continue patient's potassium replacement -monitor BMP, give additional replacement as needed continue KCL po Lupus: chronic -continue patient's prednisone 40mg daily -continue pain control with patient's Oramorph 15mg q8h prn Anxiety: chronic -continue patient's valium 10mg tid prn Hypothyroidism: chronic -continue patient's Synthroid 125mcg daily CHRONIC PAIN - CONTINUE PAIN CONTROL POSSIBLE ALLERGIC REACTION BENADRYL NAUSEA ZOFRAN DVT Prophylaxis: mariano/SCDs; avoid chemoprophylaxis incase surgical intervention is indicated 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
[2018-02-15] MEDS: MORPHINE SULFATE 2 MG/ML SYRINGE IV PUSH PRN (17:47)
[2018-02-16] VITALS (21 sets, daily range): BP systolic 126–159; BP diastolic 61–88; PULSE 50–100; RESP 16–20; TEMP 98.4–99.7; O2SAT 96–99
[2018-02-16] MEDS: PANTOPRAZOLE SOD 40 MG DELAYED RELEASE TAB PO SCH ×2 (00:12→20:37)
[2018-02-16] MEDS: DIAZEPAM 5 MG TAB PO PRN ×3 (00:12→14:47)
[2018-02-16] MEDS: DOCUSATE CALCIUM 240 MG CAP PO SCH ×2 (00:12→20:43)
[2018-02-16] MEDS: POTASSIUM PHOSPHATE MONOBASIC 500 MG TAB PO SCH ×5 (00:12→20:38)
[2018-02-16] MEDS: MORPHINE SULFATE 15 MG CONTROLLED RELEASE TAB PO PRN ×3 (00:13→20:37)
[2018-02-16] MEDS: SODIUM CHLORIDE 0.9% FLUSH 10 ML FLUSH IV FLUSH SCH ×3 (00:13→20:38)
[2018-02-16] MEDS: LINEZOLID 600 MG TAB PO SCH ×3 (00:18→20:38)
[2018-02-16] MEDS: MORPHINE SULFATE 2 MG/ML SYRINGE IV PUSH PRN ×4 (03:34→22:38)
[2018-02-16 05:09] LABS: CREATININE 1.07 MG/DL (0.50-1.00)
[2018-02-16] MEDS: MAGNESIUM OXIDE 400 MG TAB PO SCH (08:28)
[2018-02-16] MEDS: predniSONE 20 MG TAB PO SCH (08:28)
[2018-02-16] MEDS: SPIRONOLACTONE 25 MG TAB PO SCH (08:29)
[2018-02-16] MEDS: POTASSIUM CHLORIDE 20 MEQ CONTROLLED RELEASE TAB PO SCH ×3 (08:29→18:04)
[2018-02-16] MEDS: LEVOTHYROXINE SODIUM 125 MCG TAB PO SCH (08:29)
[2018-02-16] MEDS: FERROUS SULFATE 325 MG (65 MG ELEMENTAL IRON) TAB PO SCH ×2 (08:29→18:00)
--- NOTE | 2018-02-16 10:26 | PD.CAR.PN ---
CVT Progress Note Subjective/Hospital Course: 42-year-old female with past medical history significant for lupus, gastroparesis, Crohn's disease, hypothyroidism, chronic kidney disease stage III , recurrent hypokalemia, anxiety, on chronic immunosuppressive and Brugada syndrome status post AICD placement October 2017 with history of previous device infection who presents to [facility] with complaints of chest pain secondary to sternal wound infection. Her watch adjuster is Dr. Cervantes who placed an AICD device in October of 2017. Patient states she started to feel unwell the end of November. In December 2017, she was admitted to [facility], completed 1 week of IV antibiotics followed by removal of the AICD device and had a subsequent treatment of antibiotics 1 week. She then had an AICD device reimplanted and completed 1 month of IV antibiotics. Patient is unsure but thinks that she was treated with Levaquin. She was not discharged on any oral antibiotic treatment. At that time, she was managed by infectious disease physician Dr. Gardner. She was recently admitted 01/18-01/24 for syncope, bradycardia, SHABANA, s/p dopamine drip, then heart rate stabilized and she was cleared by cardiology. At that time, she had a small wound overlying the sternum and was given Bactroban at discharge. About 2 weeks ago, she began developing left axillary pain over the site of her AICD device that radiated underneath the left breast into the mid sternum. She has had a poorly healing sore over the mid chest that began to enlarge as well as increased swelling and hardness underneath the left breast. Yesterday the sore opened up with purulent drainage. She reports chills but denies any fever or sweats. She denies any cough or shortness of breath. She denies any nausea or vomiting. States that she has chronic abdominal pain secondary to Crohn's disease and gastroparesis that is unchanged. She has a history of MRSA infection left axilla many years ago but states she's been tested multiple times for MRSA since then and is always been negative. She is not sure of what her cultures were that she grew when admitted at [facility] in December with infection of the AICD device but is certain it was not MRSA. 02/09 pt still has increasing tenderness and swelling left breast and axilla pt has been seen by ID and recommend removal of ICD and leads/ Dr Cervantes agreeable and will proceed on 02/13 still having pain to ICD pacer site/ + swelling for OR tomorrow 02/13 OR cancelled today, rescheduled for mon case 02/14 for surgery today per nursing / they found a bottle of Imodium in her room she states that she was not taking, however records from [facility] they found a syringe of Imodium , also pt has been constantly pushing and squeezing her ICD site, under left breast and trying to express drainage from sternal wound Psych has been consulted 02/15 pt doing fair, still c/o of pain surgical site wound vac left lateral chest / approximately 50cc bloody drainage 02/16 wound vac left lateral chest / draining bloody drainage discussed with Dr Adam / will consult Dr Griffin for wound care management wound care team also consulted OOB/ ambulate will see prn , has follow up appointment in our office in 2 weeks will also need life vest at discharge per Dr Cervantes Objective: Vital Signs Date Time Temp Pulse Resp B/P (MAP) Pulse Ox O2 Delivery O2 Flow Rate FiO2 02/16/18 08:25 98.4 59 18 159/88 (111) 98 02/16/18 06:00 64 02/16/18 05:00 50 02/16/18 04:00 62 02/16/18 04:00 16 02/16/18 04:00 62 02/16/18 03:00 72 02/16/18 01:30 16 02/16/18 01:00 58 02/16/18 00:21 64 16 126/69 (88) 99 02/16/18 00:00 80 02/16/18 00:00 62 02/15/18 23:00 66 02/15/18 22:00 64 02/15/18 21:00 62 02/15/18 20:00 58 02/15/18 20:00 71 16 115/57 (76) 98 02/15/18 20:00 59 02/15/18 19:00 66 02/15/18 18:00 74 02/15/18 17:00 72 02/15/18 16:00 62 02/15/18 15:06 98.8 72 14 152/85 (107) 99 02/15/18 15:00 67 02/15/18 14:00 68 02/15/18 13:00 64 02/15/18 12:00 72 02/15/18 11:00 99.3 85 18 153/66 (95) 97 02/15/18 11:00 70 Labs: Laboratory Tests Test 02/16/18 04:21 Creatinine 1.07 MG/DL (0.50-1.00) Estimat Glomerular Filtration Rate 57 ML/MIN (>89) Result Diagram: 02/15/18 0552 02/16/18 0421 (1) Brugada syndrome Plan: will need life vest at discharge (2) Post traumatic stress disorder (PTSD) (3) Lupus (systemic lupus erythematosus) (4) AICD generator infection Plan: s/p ICD and epicardial lead extraction/ wound vac in place wound care team and MD consulted (5) Infection of automatic implantable cardioverter-defibrillator lead Plan: ICD and epicardial leads removed (6) Munchausen syndrome Plan: psych consult Tigist Adorno Feb 16, 2018 10:26
--- NOTE | 2018-02-16 12:44 | HHI.PR ---
Subjective Remarks appears comfortable texting with her I phone still complains of tenderness- axillary area Objective Vitals Vital Signs Date Time Temp Pulse Resp B/P (MAP) Pulse Ox O2 Delivery O2 Flow Rate FiO2 02/16/18 08:25 98.4 59 18 159/88 (111) 98 02/16/18 06:00 64 02/16/18 05:00 50 02/16/18 04:00 62 02/16/18 04:00 16 02/16/18 04:00 62 02/16/18 03:00 72 02/16/18 01:30 16 02/16/18 01:00 58 02/16/18 00:21 64 16 126/69 (88) 99 02/16/18 00:00 80 02/16/18 00:00 62 02/15/18 23:00 66 02/15/18 22:00 64 02/15/18 21:00 62 02/15/18 20:00 58 02/15/18 20:00 71 16 115/57 (76) 98 02/15/18 20:00 59 02/15/18 19:00 66 02/15/18 18:00 74 02/15/18 17:00 72 02/15/18 16:00 62 02/15/18 15:06 98.8 72 14 152/85 (107) 99 02/15/18 15:00 67 02/15/18 14:00 68 02/15/18 13:00 64 I/O 02/15/18 02/15/18 02/15/18 02/16/18 02/16/18 02/16/18 07:00 15:00 23:00 07:00 15:00 23:00 Intake Total 460 ml 720 ml 600 ml Output Total 1200 ml 2400 ml 600 ml Balance -740 ml -1680 ml 0 ml Intake Oral 460 ml 720 ml 600 ml Output Urine Total 1200 ml 2400 ml 600 ml Result Diagram: 02/15/18 0552 02/16/18 0421 Imaging Last Impressions Chest X-Ray 02/15/18 0500 Signed Impressions: Service Date/Time: February 03:49 - CONCLUSION: No acute disease. Clayton Leonard MD Upper Extremity Ultrasound 02/10/18 0000 Signed Impressions: Service Date/Time: Saturday, February 10, 2018 09:58 - CONCLUSION: There is extensive area of occlusive and nonocclusive clot identified within the right upper extremity as noted above.. Tigist Vega MD Soft Tissue Ultrasound 02/07/18 0000 Signed Impressions: Service Date/Time: Wednesday, February 07, 2018 11:15 - CONCLUSION: There is a dominant heterogeneous echotexture fluid collection in the left axilla measuring in excess of 7 cm which has a linear hyperechoic structure coursing through it. There are also some scattered smaller areas of fluid in the anterior chest wall all measuring 1 cm or less. Vic Smith MD Chest CT 02/06/18 0000 Signed Impressions: Service Date/Time: Tuesday, February 06, 2018 10:52 - CONCLUSION: External cardiac pacer/defibrillator with a single lead. The lead courses from the left midaxillary implanted unit and has a 90 bend cephalad at the level of the lower sternum and with an adjacent small apparent fluid collection. Otherwise mildly edematous/indurated soft tissues around the lead. No CT evidence of osteomyelitis. No acute abnormality demonstrated within the thoracic cavity. Brian Arrieta MD Objective Remarks awake and alert, no acute distress anicteric no nuchal rigidity VAC in place- no surrounding erythema regular rhythm no rales abdomen soft extremities no edema A/P Problem List: (1) Cellulitis of chest wall ICD Code: L03.313 - Cellulitis of chest wall Status: Acute (2) SHABANA (acute kidney injury) ICD Code: N17.9 - Acute kidney failure, unspecified Assessment and Plan 42-year-old female with history of lupus, Brugada syndrome, pacemaker/ defibrillator, hypothyroidism, CKD stage III, presents with concern for sternal wound infection and constant chest pain. Recurrent AICD Infection with Sternal Wound Cellulitis -Chest CT reviewed, shows external cardiac pacer/defibrillator with a single lead that courses from the left midaxillary implanted unit and has a 90deg bend cephalad at the level of the lower sternum and with an adjacent small apparent fluid collection. Otherwise mildly edematous/indurated soft tissues around the lead. No CT evidence of osteomyelitis. No acute abnormality demonstrated within the thoracic cavity. Continue oral zyvox.- ID - Dr. Charlie sparks Has a wound vac in place. CTS ff CM consulted- will need to go home with VAC Atypical Chest Pain: suspect secondary to infection, pain reproducible with palpation and movement Drug seeking behavior - decrease Morphine dose - further down to 1 mg q 4 prn continue on po pain meds -monitor on telemetry Brugada Syndrome: s/p pacer/AICD -monitor on telemetry SHABANA on CKD stage III: suspect secondary to dehydration. Cr 1.99, creatinine improved improving with Cr 1.24 -avoid nephrotoxins Hypokalemia: patient with chronic history of hypokalemia - improved -continue patient's potassium replacement -monitor BMP, continue KCL po Lupus: chronic -continue patient's prednisone 40mg daily -continue pain control with patient's Oramorph 15mg q8h prn Anxiety: chronic -continue patient's valium 10mg tid prn Hypothyroidism: chronic -continue patient's Synthroid 125mcg daily CHRONIC PAIN - CONTINUE PAIN CONTROL prn pain meds POSSIBLE ALLERGIC REACTION BENADRYL NAUSEA ZOFRAN DVT Prophylaxis: mariano/SCDs; avoid chemoprophylaxis incase surgical intervention is indicated 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
[2018-02-16] MEDS ORDERED: PILL SPLITTER OTHER PRN (13:00)
--- NOTE | 2018-02-16 13:16 | HHI.IDPN ---
Subjective Subjective Remarks is a 42-year-old female with past medical history significant for lupus, gastroparesis, Crohn's disease, hypothyroidism, chronic kidney disease stage III, recurrent hypokalemia, anxiety, on chronic immunosuppressive and Brugada syndrome status post AICD placement October 2017 with history of previous device infection who presents to [facility] with complaints of chest pain secondary to sternal wound infection. Her planimeter operator is Dr. Cervantes who placed an AICD device in October of 2017. Patient states she started to feel unwell the end of November. In December 2017, she was admitted to [facility], completed 1 week of IV antibiotics followed by removal of the AICD device and had a subsequent treatment of antibiotics 1 week. She then had an AICD device reimplanted and completed 1 month of IV antibiotics. Patient is unsure but thinks that she was treated with Levaquin. She was not discharged on any oral antibiotic treatment. At that time, she was managed by infectious disease physician Dr. Gardner. She was recently admitted 01/18-01/24 for syncope, bradycardia, SHABANA, s/p dopamine drip, then heart rate stabilized and she was cleared by cardiology. At that time, she had a small wound overlying the sternum and was given Bactroban at discharge. About 2 weeks ago, she began developing left axillary pain over the site of her AICD device that radiated underneath the left breast into the mid sternum. She has had a poorly healing sore over the mid chest that began to enlarge as well as increased swelling and hardness underneath the left breast. Yesterday the sore opened up with purulent drainage. She reports chills but denies any fever or sweats. She denies any cough or shortness of breath. She denies any nausea or vomiting. States that she has chronic abdominal pain secondary to Crohn's disease and gastroparesis that is unchanged. She has a history of MRSA infection left axilla many years ago but states she's been tested multiple times for MRSA since then and is always been negative. She is not sure of what her cultures were that she grew when admitted at [facility] in December with infection of the AICD device but is certain it was not MRSA. Infectious disease has been consulted for evaluation and management of recurrent AICD device infection. Notes reviewed She reports pain in the left axilla and left chest. s/p I&D of abscess and removal of AICD external on 02/14/18. No fever or chills No diarrhea afebrile No leukocytosis. Antibiotics Zyvox oral. Lines Left forearm PIV without any evidence of infection Past Medical History Brugada syndrome Crohn's disease Lupus Recurrent hypokalemia Hypothyroidism Chronic kidney disease stage III Anxiety GERD Endometriosis AICD placement Oct 2017 with subsequent removal December 2017 and replacement approximately 3 weeks ago. PEG tube placement/removal Port placement and subsequent removal EGD/colonoscopies Appendectomy Laparotomies Ectopic Cystoscopie Allergies: Coded Allergies: Fish Containing Products (Unverified Allergy, Severe, SWELLING IN THROAT, SOB, 02/06/18) cephalexin (Unverified Allergy, Severe, RASH,SWELLING, 02/06/18) ketorolac (Unverified Allergy, Severe, RASH, 02/06/18) penicillin G (Unverified Allergy, Severe, RASH,SWELLING, 02/06/18) prochlorperazine (Unverified Allergy, Mild, DYSTONIC REACTION, 02/06/18) promethazine (Unverified Allergy, Mild, DYSTONIC REACTION, 02/06/18) gabapentin (Unverified Adverse Reaction, Severe, SEIZURES, 02/06/18) Objective . Vital Signs Date Time Temp Pulse Resp B/P (MAP) Pulse Ox O2 Delivery O2 Flow Rate FiO2 02/16/18 08:25 98.4 59 18 159/88 (111) 98 02/16/18 06:00 64 02/16/18 05:00 50 02/16/18 04:00 62 02/16/18 04:00 16 02/16/18 04:00 62 02/16/18 03:00 72 02/16/18 01:30 16 02/16/18 01:00 58 02/16/18 00:21 64 16 126/69 (88) 99 02/16/18 00:00 80 02/16/18 00:00 62 02/15/18 23:00 66 02/15/18 22:00 64 02/15/18 21:00 62 02/15/18 20:00 58 02/15/18 20:00 71 16 115/57 (76) 98 02/15/18 20:00 59 02/15/18 19:00 66 02/15/18 18:00 74 02/15/18 17:00 72 02/15/18 16:00 62 02/15/18 15:06 98.8 72 14 152/85 (107) 99 02/15/18 15:00 67 02/15/18 14:00 68 02/16/18 02/16/18 02/17/18 15:00 23:00 07:00 Intake Total 600 ml Output Total 600 ml Balance 0 ml Intake Oral 600 ml Output Urine Total 600 ml . Laboratory Tests Test 02/15/18 05:52 White Blood Count 5.5 TH/MM3 Red Blood Count 3.73 MIL/MM3 Hemoglobin 10.4 GM/DL Hematocrit 31.0 % Mean Corpuscular Volume 83.1 FL Mean Corpuscular Hemoglobin 27.8 PG Mean Corpuscular Hemoglobin Concent 33.4 % Red Cell Distribution Width 16.9 % Platelet Count 166 TH/MM3 Mean Platelet Volume 7.6 FL Neutrophils (%) (Auto) 61.5 % Lymphocytes (%) (Auto) 24.2 % Monocytes (%) (Auto) 9.2 % Eosinophils (%) (Auto) 4.3 % Basophils (%) (Auto) 0.8 % Neutrophils # (Auto) 3.4 TH/MM3 Lymphocytes # (Auto) 1.3 TH/MM3 Monocytes # (Auto) 0.5 TH/MM3 Eosinophils # (Auto) 0.2 TH/MM3 Basophils # (Auto) 0.0 TH/MM3 CBC Comment DIFF FINAL Differential Comment Laboratory Tests Test 02/15/18 05:52 02/16/18 04:21 Blood Urea Nitrogen 15 MG/DL Creatinine 1.13 MG/DL 1.07 MG/DL Random Glucose 126 MG/DL Total Protein 6.0 GM/DL Albumin 2.6 GM/DL Calcium Level 8.7 MG/DL Phosphorus Level 3.6 MG/DL Magnesium Level 2.1 MG/DL Alkaline Phosphatase 63 U/L Aspartate Amino Transf (AST/SGOT) 16 U/L Alanine Aminotransferase (ALT/SGPT) 16 U/L Total Bilirubin 0.2 MG/DL Sodium Level 142 MEQ/L Potassium Level 3.6 MEQ/L Chloride Level 107 MEQ/L Carbon Dioxide Level 29.1 MEQ/L Anion Gap 6 MEQ/L Estimat Glomerular Filtration Rate 53 ML/MIN 57 ML/MIN Microbiology Date/Time Source Procedure Growth Status 02/14/18 15:49 Fluid Other Fungal Smear - Final NO FUNGAL ELEMENTS SEEN. Resulted 02/14/18 15:49 Fluid Other Fungal Culture Pending Resulted 02/14/18 15:49 Fluid Other Acid Fast Stain Pending Received 02/14/18 15:49 Fluid Other Mycobacterial Culture Pending Received 02/14/18 13:57 Wound Other Gram Stain - Final Complete 02/14/18 13:57 Wound Culture - Final Staphylococcus Aureus Complete Imaging Last Impressions Soft Tissue Ultrasound 02/07/18 0000 Signed Impressions: Service Date/Time: Wednesday, February 07, 2018 11:15 - CONCLUSION: There is a dominant heterogeneous echotexture fluid collection in the left axilla measuring in excess of 7 cm which has a linear hyperechoic structure coursing through it. There are also some scattered smaller areas of fluid in the anterior chest wall all measuring 1 cm or less. Vic Smith MD Chest CT 02/06/18 0000 Signed Impressions: Service Date/Time: Tuesday, February 06, 2018 10:52 - CONCLUSION: External cardiac pacer/defibrillator with a single lead. The lead courses from the left midaxillary implanted unit and has a 90 bend cephalad at the level of the lower sternum and with an adjacent small apparent fluid collection. Otherwise mildly edematous/indurated soft tissues around the lead. No CT evidence of osteomyelitis. No acute abnormality demonstrated within the thoracic cavity. Brian Arrieta MD Chest X-Ray 02/05/18 0000 Signed Impressions: Service Date/Time: Monday, February 05, 2018 19:55 - CONCLUSION: 1. No active disease. Defibrillator wire overlies the left hemithorax anteriorly. Hay Day MD Physical Exam GENERAL: This is a well-nourished, well-developed female patient, in no apparent distress. Awake and alert. Appears comfortable. SKIN: Warm and dry. Mild erythema over fourth digit of the left foot, chronic. HEENT: Normocephalic. Pupils equal round and reactive. Nose without bleeding. Airway patent. NECK: Trachea midline. No JVD. Supple. CARDIOVASCULAR: Regular rate and rhythm without murmurs, gallops, or rubs. CHEST: Left lateral chest wall wound vac in place. Still has some induration below left breast. RESPIRATORY: Clear to auscultation. Breath sounds equal bilaterally. No wheezes , rales, or rhonchi. GASTROINTESTINAL: Abdomen soft, non-tender, nondistended. Bowel Sounds normoactive x4. MUSCULOSKELETAL: Extremities without clubbing, cyanosis, or edema. NEUROLOGICAL: Awake and alert. Oriented to time, place, person. No focal neuro deficit. Moves all extremities. Normal speech. PSYCHIATRIC: Appropriate mood and affect. Normal insight and judgment. Psych cooperative IV line sites with no e.o infection. Assessment & Plan Remarks Recurrent AICD/lead infection Chest wall abscess: superficial culture with MRSA Deeper cultures with MSSA. No evidence of vegetation. 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 Immunocompromised with chronic prednisone use. Crohn's disease Lupus Hypothyroidism Possible factitious disorder: per psych evaluation. Recommendations: Continue oral zyvox. Follow wound cultures Has a wound vac in place. Will need Life Vest on discharge eventually. Do not anticipate IV antibiotics at present time. to cover for me this weekend and to cover 02/19/18 and 02/20/18. Lay Guerra MD Feb 16, 2018 13:16
--- NOTE | 2018-02-16 14:04 | PD.WCN.NOT ---
Wound Consult Description: Consult for VAC MANAGEMENT left chest per MAYELA Adorno Communicated with: Patient Vasiliy MARIA ISABEL Recommendation: Change left lateral chest wound VAC dressing [id number] as ordered with settings @ 125 mmHg low continuous suction. May use a small wound VAC dressing kit. Change canister with next dressing change on Monday02/19/18. Additional Information: Patient seen on [facility] for wound VAC change to left lateral chest as requested. Neg Pressure Wound Therapy Wound Location Wound Location: Left Lateral Chest Wound Description Length: 8.5cm Width: 2.5cm Depth: 1.6cm Wound bed appearance: ~90% beefy red vascular granulated tissue ~5% adipose ~5% cauterized tissue Periwound appearance: Unremarkable Settings Suction: 125 mmHg, Continuous Intensity: Low Other Information: Mushroomed Foam type: Black Number of pieces: 1 Additonal Information Wound VAC turned off and dressing removed from left upper lateral chest using adhesive remover wipes. Wound was cleansed with NS and gauze with scant sanguinous drainage noted. Wound was measured. One piece of black granufoam was placed into wound bed and secured with VAC drape. Periwound and VAC drape was skin prepped and allowed to air dry. One small hole was cut in the distal portion of the dressing to apply mushroom cap and sensi-trac pad. Machine turned on with settings @125mmHg low continuous suction. No leaks noted. Patient tolerated VAC dressing change well. Cande Camarena [facility] Feb 16, 2018 14:04
[2018-02-17] VITALS (8 sets, daily range): BP systolic 101–119; BP diastolic 50–65; PULSE 57–81; RESP 17–18; TEMP 98.1–98.5; O2SAT 96–98
[2018-02-17] MEDS: DIAZEPAM 5 MG TAB PO PRN ×3 (04:05→22:43)
[2018-02-17] MEDS: LEVOTHYROXINE SODIUM 125 MCG TAB PO SCH (05:25)
[2018-02-17] MEDS: MORPHINE SULFATE 15 MG CONTROLLED RELEASE TAB PO PRN ×3 (05:25→21:16)
[2018-02-17] MEDS: LINEZOLID 600 MG TAB PO SCH ×2 (10:37→21:14)
[2018-02-17] MEDS: SPIRONOLACTONE 25 MG TAB PO SCH (10:37)
[2018-02-17] MEDS: POTASSIUM PHOSPHATE MONOBASIC 500 MG TAB PO SCH ×4 (10:37→21:14)
[2018-02-17] MEDS: MAGNESIUM OXIDE 400 MG TAB PO SCH (10:38)
[2018-02-17] MEDS: FERROUS SULFATE 325 MG (65 MG ELEMENTAL IRON) TAB PO SCH ×2 (10:38→18:07)
[2018-02-17] MEDS: SODIUM CHLORIDE 0.9% FLUSH 10 ML FLUSH IV FLUSH SCH ×2 (10:38→21:15)
[2018-02-17] MEDS: POTASSIUM CHLORIDE 20 MEQ CONTROLLED RELEASE TAB PO SCH ×3 (10:38→18:07)
[2018-02-17] MEDS: predniSONE 20 MG TAB PO SCH (10:38)
[2018-02-17] MEDS: MORPHINE SULFATE 2 MG/ML SYRINGE IV PUSH PRN (10:40)
--- NOTE | 2018-02-17 12:06 | HHI.PR ---
Subjective Remarks Follow-up chest wall infection. States she has no new complaints. Counseled regarding narcotics will discontinue IV morphine. States she has been on chronic prednisone 40 mg daily for the past 12 months. Discussed with nursing Objective Vitals Vital Signs Date Time Temp Pulse Resp B/P (MAP) Pulse Ox O2 Delivery O2 Flow Rate FiO2 02/17/18 08:00 98.2 69 17 112/54 (73) 96 02/17/18 04:00 98.5 69 18 108/53 (71) 97 02/17/18 00:00 98.2 69 18 101/50 (67) 97 02/16/18 20:45 86 02/16/18 20:00 99.7 83 20 126/61 (82) 96 02/16/18 17:00 86 02/16/18 16:00 82 02/16/18 15:00 57 02/16/18 15:00 98.7 71 16 152/85 (107) 98 02/16/18 14:00 62 02/16/18 13:00 100 02/16/18 12:30 16 02/16/18 12:30 16 I/O 02/16/18 02/16/18 02/16/18 02/17/18 02/17/18 02/17/18 07:00 15:00 23:00 07:00 15:00 23:00 Intake Total 600 ml 1500 ml Output Total 600 ml 1200 ml Balance 0 ml 300 ml Intake Oral 600 ml 1500 ml Output Urine Total 600 ml 1200 ml Result Diagram: 02/15/18 0552 02/16/18 0421 Imaging Last Impressions Chest X-Ray 02/15/18 0500 Signed Impressions: Service Date/Time: February 03:49 - CONCLUSION: No acute disease. Clayton Leonard MD Upper Extremity Ultrasound 02/10/18 0000 Signed Impressions: Service Date/Time: Saturday, February 10, 2018 09:58 - CONCLUSION: There is extensive area of occlusive and nonocclusive clot identified within the right upper extremity as noted above.. Tigist Vega MD Soft Tissue Ultrasound 02/07/18 0000 Signed Impressions: Service Date/Time: Wednesday, February 07, 2018 11:15 - CONCLUSION: There is a dominant heterogeneous echotexture fluid collection in the left axilla measuring in excess of 7 cm which has a linear hyperechoic structure coursing through it. There are also some scattered smaller areas of fluid in the anterior chest wall all measuring 1 cm or less. Vic Smith MD Chest CT 02/06/18 0000 Signed Impressions: Service Date/Time: Tuesday, February 06, 2018 10:52 - CONCLUSION: External cardiac pacer/defibrillator with a single lead. The lead courses from the left midaxillary implanted unit and has a 90 bend cephalad at the level of the lower sternum and with an adjacent small apparent fluid collection. Otherwise mildly edematous/indurated soft tissues around the lead. No CT evidence of osteomyelitis. No acute abnormality demonstrated within the thoracic cavity. Brian Arrieta MD Objective Remarks awake and alert, no acute distress anicteric no nuchal rigidity VAC in place- no surrounding erythema regular rhythm no rales abdomen soft extremities no edema Procedures removal of ICD and extraction of leads, wd vac placement A/P Problem List: (1) Cellulitis of chest wall ICD Code: L03.313 - Cellulitis of chest wall Status: Acute (2) SHABANA (acute kidney injury) ICD Code: N17.9 - Acute kidney failure, unspecified Assessment and Plan 42-year-old female with history of lupus, Brugada syndrome, pacemaker/ defibrillator, hypothyroidism, CKD stage III, presents with concern for sternal wound infection and constant chest pain. 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 She is stable continue wound care with wound VAC, oral Zyvox will clarify with ID duration of treatment and pain management consult regarding narcotics. Follow-up wound care consultation. Case management to arrange for wound VAC outpatient with home care. Outpatient follow-up with CTS Atypical Chest Pain: suspect secondary to infection, pain reproducible with palpation and movement Drug seeking behavior. Discontinue IV morphine continue home medication of morphine sulfate IR follow-up with pain management Brugada Syndrome: s/p pacer/AICD -monitor on telemetry. Life vest requested SHABANA on CKD stage III: suspect secondary to dehydration. Cr 1.99, creatinine improved avoid nephrotoxins Hypokalemia: patient with chronic history of hypokalemia - improved Lupus: chronic will gradually taper prednisone down to 30 mg daily Anxiety: chronic will decrease Valium dose also consult regarding benzodiazepine usage Hypothyroidism: chronic. 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 Status post psychiatry evaluation possible factitious disorder DVT Prophylaxis: mariano/SCDs; patient ambulatory Tom Bosch MD Feb 17, 2018 12:06
[2018-02-17] MEDS: ONDANSETRON ODT 4 MG TAB PO PRN (13:47)
[2018-02-17] MEDS ORDERED: PRED10 PO (15:51)
[2018-02-17] MEDS ORDERED: SYNT112T PO (15:51)
--- NOTE | 2018-02-17 15:52 | HHI.DCPOC ---
Discharge Care Plan Diagnosis: (1) s/p extrraaction of ICD/ epicardial lead Your Health Problems Are: Difficulty with ADL Exercise Tolerance Goals to Promote Your Health * To prevent worsening of your condition and complications * To maintain your health at the optimal level Directions to Meet Your Goals Take your medications as prescribed Follow your dietary instruction Follow activity as directed Keep your appointments as scheduled Take your immunizations and boosters as scheduled If your symptoms worsen call your PCP, if no PCP go to Urgent Care Center or Emergency Room Smoking is Dangerous to Your Health. Avoid second hand smoke Call the 24-hour hour crisis hotline for domestic abuse at Tom Bosch MD Feb 17, 2018 15:52
[2018-02-17] MEDS: PANTOPRAZOLE SOD 40 MG DELAYED RELEASE TAB PO SCH (21:14)
[2018-02-17] MEDS: DOCUSATE CALCIUM 240 MG CAP PO SCH (21:14)
[2018-02-18] VITALS (9 sets, daily range): BP systolic 108–137; BP diastolic 54–70; PULSE 68–87; RESP 17–19; TEMP 97.6–98.4; O2SAT 96–99
[2018-02-18] MEDS: LEVOTHYROXINE SODIUM 112 MCG TAB PO SCH (05:09)
[2018-02-18] MEDS: MORPHINE SULFATE 15 MG CONTROLLED RELEASE TAB PO PRN ×3 (05:09→21:51)
[2018-02-18] MEDS: DIAZEPAM 5 MG TAB PO PRN ×2 (07:36→16:27)
[2018-02-18] MEDS: SODIUM CHLORIDE 0.9% FLUSH 10 ML FLUSH IV FLUSH SCH ×2 (10:26→21:52)
[2018-02-18] MEDS: predniSONE 10 MG TAB PO SCH (10:26)
[2018-02-18] MEDS: POTASSIUM PHOSPHATE MONOBASIC 500 MG TAB PO SCH ×4 (10:26→21:52)
[2018-02-18] MEDS: FERROUS SULFATE 325 MG (65 MG ELEMENTAL IRON) TAB PO SCH ×2 (10:26→16:27)
[2018-02-18] MEDS: POTASSIUM CHLORIDE 20 MEQ CONTROLLED RELEASE TAB PO SCH ×3 (10:26→16:27)
[2018-02-18] MEDS: SPIRONOLACTONE 25 MG TAB PO SCH (10:27)
[2018-02-18] MEDS: LINEZOLID 600 MG TAB PO SCH ×2 (10:27→21:51)
[2018-02-18] MEDS: MAGNESIUM OXIDE 400 MG TAB PO SCH (10:27)
[2018-02-18] MEDS: CHOLECALCIFEROL (VIT D3) 5000 UNIT CAP PO SCH (10:27)
--- NOTE | 2018-02-18 12:58 | HHI.PR ---
Subjective Remarks Follow-up chest wall infection. She is requesting a different physician because I have been changing her medication regimen. I have explained to her that Synthroid needs to be adjusted. She also agreed yesterday that IV morphine will be discontinued as she is stable for discharge pending arrangements of LifeVest and wound VAC. Also told her that I would not be increasing her Valium to her home dose unless it is verified dw RN to call [facility] located in ([facility]) Objective Vitals Vital Signs Date Time Temp Pulse Resp B/P (MAP) Pulse Ox O2 Delivery O2 Flow Rate FiO2 02/18/18 08:03 87 02/18/18 08:00 97.6 78 17 129/60 (83) 97 02/18/18 04:00 70 02/18/18 04:00 Room Air 02/18/18 04:00 98.0 74 18 130/67 (88) 99 02/18/18 00:00 98.1 78 18 114/55 (74) 98 02/18/18 00:00 73 02/18/18 00:00 Room Air 02/17/18 20:00 75 02/17/18 20:00 Room Air 02/17/18 20:00 98.5 81 18 119/65 (83) 96 02/17/18 16:00 98.1 79 17 113/56 (75) 98 I/O 02/17/18 02/17/18 02/17/18 02/18/18 02/18/18 02/18/18 07:00 15:00 23:00 07:00 15:00 23:00 Intake Total 695 ml 480 ml Output Total 8 ml Balance 687 ml 480 ml Intake Oral 695 ml 480 ml Output Urine Total 8 ml # Voids 3 # Bowel Movements 1 0 Result Diagram: 02/15/18 0552 02/16/18 0421 Imaging Last Impressions Chest X-Ray 02/15/18 0500 Signed Impressions: Service Date/Time: February 03:49 - CONCLUSION: No acute disease. Clayton Leonard MD Upper Extremity Ultrasound 02/10/18 0000 Signed Impressions: Service Date/Time: Saturday, February 10, 2018 09:58 - CONCLUSION: There is extensive area of occlusive and nonocclusive clot identified within the right upper extremity as noted above.. Tigist Vega MD Soft Tissue Ultrasound 02/07/18 0000 Signed Impressions: Service Date/Time: Wednesday, February 07, 2018 11:15 - CONCLUSION: There is a dominant heterogeneous echotexture fluid collection in the left axilla measuring in excess of 7 cm which has a linear hyperechoic structure coursing through it. There are also some scattered smaller areas of fluid in the anterior chest wall all measuring 1 cm or less. Vic Simth MD Chest CT 02/06/18 0000 Signed Impressions: Service Date/Time: Tuesday, February 06, 2018 10:52 - CONCLUSION: External cardiac pacer/defibrillator with a single lead. The lead courses from the left midaxillary implanted unit and has a 90 bend cephalad at the level of the lower sternum and with an adjacent small apparent fluid collection. Otherwise mildly edematous/indurated soft tissues around the lead. No CT evidence of osteomyelitis. No acute abnormality demonstrated within the thoracic cavity. Brian Arrieta MD Objective Remarks awake and alert, no acute distress anicteric VAC in place extremities no edema Procedures removal of ICD and extraction of leads, wd vac placement A/P Problem List: (1) Cellulitis of chest wall ICD Code: L03.313 - Cellulitis of chest wall Status: Acute (2) SHABANA (acute kidney injury) ICD Code: N17.9 - Acute kidney failure, unspecified Assessment and Plan 42-year-old female with history of lupus, Brugada syndrome, pacemaker/ defibrillator, hypothyroidism, CKD stage III, presents with concern for sternal wound infection and constant chest pain. 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 She is stable continue wound care with wound VAC, oral Zyvox will clarify with ID duration of treatment and pain management counselled regarding narcotics. Follow-up wound care consultation. Case management to arrange for wound VAC outpatient with home care. Outpatient follow-up with CTS Atypical Chest Pain: suspect secondary to infection, pain reproducible with palpation and movement Drug seeking behavior. Discontinue dIV morphine continue home medication of morphine sulfate IR follow-up with pain management Brugada Syndrome: s/p pacer/AICD -monitor on telemetry. Life vest requested SHABANA on CKD stage III: suspect secondary to dehydration. Cr 1.99, creatinine improved avoid nephrotoxins Hypokalemia: patient with chronic history of hypokalemia - improved Lupus: chronic will gradually taper prednisone down to 30 mg daily Anxiety: chronic will decrease Valium dose also counselled regarding benzodiazepine usage Hypothyroidism: chronic. 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 Status post psychiatry evaluation possible factitious disorder DVT Prophylaxis: mariano/SCDs; patient ambulatory Tom Bosch MD Feb 18, 2018 12:58
[2018-02-18 14:43] LABS: BICARBONATE 29.9 MEQ/L (21.0-32.0); CALCIUM 8.6 MG/DL (8.5-10.1); CREATININE 1.36 MG/DL (0.50-1.00)
[2018-02-18 14:44] LABS: PHOSPHORUS 4.1 MG/DL (2.5-4.9)
[2018-02-18] MEDS: DOCUSATE CALCIUM 240 MG CAP PO SCH (21:51)
[2018-02-18] MEDS: PANTOPRAZOLE SOD 40 MG DELAYED RELEASE TAB PO SCH (21:51)
[2018-02-19] VITALS: BP 125/65; PULSE 68; RESP 17; TEMP 98; O2SAT 98
[2018-02-19] MEDS: DIAZEPAM 5 MG TAB PO PRN ×3 (01:32→18:13)
[2018-02-19 04:00] VITALS: BP 107/56; PULSE 70; PULSE 78; RESP 17; TEMP 98; O2SAT 98
[2018-02-19] MEDS: MORPHINE SULFATE 15 MG CONTROLLED RELEASE TAB PO PRN ×2 (06:09→15:22)
[2018-02-19] MEDS: LEVOTHYROXINE SODIUM 112 MCG TAB PO SCH (06:09)
[2018-02-19 08:00] VITALS: BP 106/53; PULSE 71; RESP 18; TEMP 97.7; O2SAT 99
[2018-02-19] MEDS: SODIUM CHLORIDE 0.9% FLUSH 10 ML FLUSH IV FLUSH SCH ×2 (09:00→22:16)
[2018-02-19] MEDS: predniSONE 10 MG TAB PO SCH (09:39)
[2018-02-19] MEDS: POTASSIUM PHOSPHATE MONOBASIC 500 MG TAB PO SCH ×4 (09:39→22:14)
[2018-02-19] MEDS: MAGNESIUM OXIDE 400 MG TAB PO SCH (09:39)
[2018-02-19] MEDS: FERROUS SULFATE 325 MG (65 MG ELEMENTAL IRON) TAB PO SCH ×2 (09:39→18:13)
[2018-02-19] MEDS: LINEZOLID 600 MG TAB PO SCH ×2 (09:39→22:15)
[2018-02-19] MEDS: SPIRONOLACTONE 25 MG TAB PO SCH (09:40)
[2018-02-19] MEDS: POTASSIUM CHLORIDE 20 MEQ CONTROLLED RELEASE TAB PO SCH ×3 (09:40→18:13)
[2018-02-19 12:00] VITALS: BP 151/78; PULSE 86; RESP 18; TEMP 98.8; O2SAT 98
[2018-02-19] MEDS ORDERED: MORPHINE SULFATE 2 MG/ML SYRINGE IV PUSH ONE (14:15)
--- NOTE | 2018-02-19 14:42 | HHI.PR ---
Subjective Remarks The patient had multiple complaints about her wound site and medication regimen. She also mentioned that she was not established with a primary at this time so follow-up would consist of coming back to the emergency department. She feels like her wounds are not getting better and that she has swelling at the sites. She says she requires a higher dose of Valium for her muscle spasms. She had questions about her thyroid medication. Discussed with nursing. Objective Vitals Vital Signs Date Time Temp Pulse Resp B/P (MAP) Pulse Ox O2 Delivery O2 Flow Rate FiO2 02/19/18 12:00 98.8 86 18 151/78 (102) 98 02/19/18 10:45 Room Air 02/19/18 08:00 97.7 71 18 106/53 (70) 99 02/19/18 04:00 70 02/19/18 04:00 98.0 78 17 107/56 (73) 98 02/19/18 00:00 98.0 68 17 125/65 (85) 98 02/18/18 23:47 68 02/18/18 20:00 Room Air 02/18/18 20:00 98.4 80 17 123/70 (87) 97 02/18/18 19:52 86 02/18/18 16:00 98.0 80 18 108/54 (72) 96 I/O 02/18/18 02/18/18 02/18/18 02/19/18 02/19/18 02/19/18 07:00 15:00 23:00 07:00 15:00 23:00 Intake Total 480 ml 600 ml 240 ml Output Total 0 ml Balance 480 ml 600 ml 240 ml Intake Oral 480 ml 600 ml 240 ml Drainage Total 0 ml # Voids 3 9 4 # Bowel Movements 0 1 0 Result Diagram: 02/15/18 0552 02/18/18 1342 Imaging Last Impressions Chest X-Ray 02/15/18 0500 Signed Impressions: Service Date/Time: February 03:49 - CONCLUSION: No acute disease. Clayton Leonard MD Upper Extremity Ultrasound 02/10/18 0000 Signed Impressions: Service Date/Time: Saturday, February 10, 2018 09:58 - CONCLUSION: There is extensive area of occlusive and nonocclusive clot identified within the right upper extremity as noted above.. Tigist Vega MD Soft Tissue Ultrasound 02/07/18 0000 Signed Impressions: Service Date/Time: Wednesday, February 07, 2018 11:15 - CONCLUSION: There is a dominant heterogeneous echotexture fluid collection in the left axilla measuring in excess of 7 cm which has a linear hyperechoic structure coursing through it. There are also some scattered smaller areas of fluid in the anterior chest wall all measuring 1 cm or less. Vic Smith MD Chest CT 02/06/18 0000 Signed Impressions: Service Date/Time: Tuesday, February 06, 2018 10:52 - CONCLUSION: External cardiac pacer/defibrillator with a single lead. The lead courses from the left midaxillary implanted unit and has a 90 bend cephalad at the level of the lower sternum and with an adjacent small apparent fluid collection. Otherwise mildly edematous/indurated soft tissues around the lead. No CT evidence of osteomyelitis. No acute abnormality demonstrated within the thoracic cavity. Brian Arrieta MD Objective Remarks GENERAL: No acute distress. SKIN: Warm and dry. 2cm distal sternal wound appears non infected. Left lateral axillary region with palpable subcutaneous AICD with surrounding edema, TTP, no open wounds/drainage. HEENT: Normocephalic. Atraumatic. Pupils equal and round. Mucous membranes pink and moist. CARDIOVASCULAR: Regular rate and rhythm. No murmur appreciated. RESPIRATORY: No accessory muscle use. Clear to auscultation. Breath sounds equal bilaterally. GASTROINTESTINAL: Abdomen soft, non-tender, nondistended. Normoactive bowel sounds x4. MUSCULOSKELETAL: No obvious deformities. Extremities without clubbing, cyanosis , or edema. NEUROLOGICAL: Awake and alert. No obvious cranial nerve deficits. Motor grossly within normal limits. Normal speech. PSYCHIATRIC: Slightly flattened affect. Procedures removal of ICD and extraction of leads, wd vac placement Medications and IVs Current Medications Medications (Trade) Dose Ordered Sig/Osito Route Start Time Stop Time Status Last Admin (Ferrous Sulfate) 325 mg BIDPC PO 02/06/18 09:00 02/19/18 09:39 (Mag-Ox) 400 mg DAILY PO 02/06/18 09:00 02/19/18 09:39 (Protonix) 40 mg HS PO 02/06/18 21:00 02/18/18 21:51 (KCl) 40 meq TID PO 02/06/18 09:00 02/19/18 13:17 (K-Phos) 500 mg PCHS PO 02/06/18 09:30 02/19/18 13:17 (Aldactone) 25 mg DAILY PO 02/06/18 09:00 02/19/18 09:40 (Oramorph Sr) 15 mg Q8HR PRN PO 02/06/18 12:30 02/19/18 06:09 (Vitamin D3) 20,000 units Q72H PO 02/09/18 09:00 02/18/18 10:27 (Narcan Inj) 0.4 mg UNSCH PRN IV PUSH 02/08/18 13:00 (NS Flush) 2 ml BID IV FLUSH 02/09/18 21:00 02/18/18 21:52 (NS Flush) 2 ml UNSCH PRN IV FLUSH 02/09/18 16:00 (Zyvox) 600 mg Q12HR PO 02/10/18 14:30 02/19/18 09:39 (Zofran Odt) 8 mg Q6H PRN PO 02/10/18 16:00 02/17/18 13:47 (Benadryl) 50 mg Q6H PRN PO 02/10/18 16:00 Ondansetron HCl 8 mg/Dextrose 54 ml @ 216 mls/hr Q6H PRN IV PUSH 02/10/18 16:15 (Surfak) 240 mg HS PO 02/14/18 21:00 02/18/18 21:51 (Milk Of Magnesia Liq) 30 ml DAILY PRN PO 02/14/18 14:30 (Tylenol) 650 mg Q4H PRN PO 02/14/18 14:30 ([place] 5-325 Mg) 1 tab Q4H PRN PO 02/14/18 14:30 (Pill Splitter) 1 ea UNSCH PRN OTHER 02/16/18 13:00 (Synthroid) 112 mcg DAILY@0600 PO 02/18/18 06:00 02/19/18 06:09 (Deltasone) 30 mg DAILY PO 02/18/18 09:00 02/19/18 09:39 (Valium) 5 mg TID PRN PO 02/19/18 12:30 A/P Problem List: (1) Cellulitis of chest wall ICD Code: L03.313 - Cellulitis of chest wall Status: Acute (2) SHABANA (acute kidney injury) ICD Code: N17.9 - Acute kidney failure, unspecified Assessment and Plan 42-year-old female with history of lupus, Brugada syndrome, pacemaker/ defibrillator, hypothyroidism, CKD stage III, presents with concern for sternal wound infection and constant chest pain. 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 She is stable, continue wound care with wound VAC , oral Zyvox, will clarify with ID duration of treatment. Pain management, counselled regarding narcotics. Follow-up wound care consultation. Case management to arrange for wound VAC outpatient with home care. Outpatient follow-up with CTS. Atypical Chest Pain: suspect secondary to infection, pain reproducible with palpation and movement. Continue home medication of morphine sulfate IR follow- up with pain management. Valium for muscle spasms. Brugada Syndrome: s/p pacer/AICD -monitor on telemetry. Life vest requested. SHABANA on CKD stage III: suspect secondary to dehydration. avoid nephrotoxins Hypokalemia: patient with chronic history of hypokalemia - improved Lupus: tapered prednisone down to 30 mg daily. Anxiety: chronic. On Valium. also counselled regarding benzodiazepine usage Hypothyroidism: chronic. TSH low will decrease Synthroid to 112 mcg daily and repeat level in 6 weeks Status post psychiatry evaluation: possible factitious disorder. Outpt follow- up. DVT Prophylaxis: mariano/SCDs; patient ambulatory Discharge Planning Awaiting wound vac and LifeVest. The pt states that she has no way to follow up with a doctor upon discharge. She says her follow-up would consist of coming back to the ED. Will need to follow-up with case management in regards to follow -up. Kane Waters DO Feb 19, 2018 14:42
[2018-02-19 16:00] VITALS: BP 159/70; PULSE 87; RESP 18; TEMP 98.8; O2SAT 99
--- NOTE | 2018-02-19 18:58 | PD.WCN.NOT ---
Wound Consult Description: Left Lateral Chest Communicated with: MARIA ISABEL Self [address] [place] [address], Doctor Evelin, MARIA ISABEL self notified surgeon of edema Additional Information: Patient seen for wound VAC change on . Patient is noted with increased edema to periwound between 12 and 6 o'clock. No erythema is noted to periwound.Wound VAC turned off and dressing removed from left upper lateral chest Wound was cleansed with NS and gauze with scant sanguinous drainage noted. Wound was measured. Applied one piece of white granufoam to tunneled area at 3 o'clock. Applied cavilon skin barrier film to periwound and allowed to dry before window paning wound with VAC drape. One piece of black granufoam was placed into wound bed and secured with VAC drape. One small hole was cut at 9 o'clock to reveal granufoam and then applied mushroom cap and sensi-trac pad over small hole Machine turned on with settings @125mmHg low continuous suction. No leaks noted. Patient tolerated VAC dressing change well. Neg Pressure Wound Therapy Wound Location Wound Location: Left Lateral Chest Wound Description Length: 7cm Width: 2.2cm Depth: ~2 cm Tunneling: at 3 o'clock measuring ~3.3cm Wound bed appearance: ~90% beefy red vascular granulated tissue ~5% adipose ~5% cauterized tissue Drainage is moderate sero-sanguinous and thin with out odor Periwound appearance: Other (Edema noted between 6 and 12 o'clock no erythema is noted) Settings Suction: 125 mmHg, Continuous Intensity: Low Other Information: Mushroomed Foam type: Black, White Number of pieces: 2 Darling Mahoney [facility] Feb 19, 2018 18:57
[2018-02-19 20:00] VITALS: BP 142/67; PULSE 79; PULSE 82; RESP 18; TEMP 98.2; O2SAT 99
[2018-02-19] MEDS: DOCUSATE CALCIUM 240 MG CAP PO SCH (21:00)
[2018-02-19] MEDS: PANTOPRAZOLE SOD 40 MG DELAYED RELEASE TAB PO SCH (22:14)
[2018-02-20] VITALS: BP 136/65; PULSE 81; RESP 18; TEMP 97.9; O2SAT 99
[2018-02-20] MEDS: MORPHINE SULFATE 15 MG CONTROLLED RELEASE TAB PO PRN ×3 (01:26→17:06)
[2018-02-20] MEDS: DIAZEPAM 5 MG TAB PO PRN ×3 (01:27→13:40)
[2018-02-20 04:00] VITALS: BP 109/51; PULSE 80; RESP 18; TEMP 97.9; O2SAT 98
[2018-02-20] MEDS: LEVOTHYROXINE SODIUM 112 MCG TAB PO SCH (06:01)
[2018-02-20 06:26] LABS: AUTOMATED NEUTROPHIL # 3.6 TH/MM3 (1.8-7.7); BASOPHIL # 0.1 TH/MM3 (0-0.2); BASOPHIL % 1.1 % (0.0-2.0); EOSINOPHIL # 0.3 TH/MM3 (0-0.4); EOSINOPHIL % 4.7 % (0.0-4.0); HEMATOCRIT 28.9 % (35.0-46.0); HEMOGLOBIN 9.8 GM/DL (11.6-15.3); LYMPH % 32.6 % (9.0-44.0); LYMPHOCYTE # 2.2 TH/MM3 (1.0-4.8); MEAN CELL VOLUME 83.8 FL (80.0-100.0); MEAN CORPUSCULAR HEMOGLOBIN 28.4 PG (27.0-34.0); MEAN CORPUSCULAR HGB CONC 33.9 % (32.0-36.0); MEAN PLATELET VOLUME 7.3 FL (7.0-11.0); MONO % 7.6 % (0.0-8.0); MONOCYTE # 0.5 TH/MM3 (0-0.9); PLATELET COUNT 141 TH/MM3 (150-450); RED BLOOD COUNT 3.44 MIL/MM3 (4.00-5.30); RED CELL DISTRIBUTION WIDTH 16.3 % (11.6-17.2); WHITE BLOOD COUNT 6.7 TH/MM3 (4.0-11.0)
[2018-02-20 06:53] LABS: BICARBONATE 27.4 MEQ/L (21.0-32.0); CALCIUM 8.7 MG/DL (8.5-10.1); CREATININE 1.51 MG/DL (0.50-1.00)
[2018-02-20 07:23] LABS: OVALOCYTES 1+ (NORMAL)
[2018-02-20 08:00] VITALS: BP 111/72; PULSE 68; RESP 18; TEMP 97.7; O2SAT 99
[2018-02-20] MEDS: SODIUM CHLORIDE 0.9% FLUSH 10 ML FLUSH IV FLUSH SCH ×2 (09:00→20:59)
[2018-02-20] MEDS: FERROUS SULFATE 325 MG (65 MG ELEMENTAL IRON) TAB PO SCH ×2 (09:30→17:06)
[2018-02-20] MEDS: SPIRONOLACTONE 25 MG TAB PO SCH (09:30)
[2018-02-20] MEDS: POTASSIUM PHOSPHATE MONOBASIC 500 MG TAB PO SCH ×4 (09:31→20:50)
[2018-02-20] MEDS: MAGNESIUM OXIDE 400 MG TAB PO SCH (09:31)
[2018-02-20] MEDS: LINEZOLID 600 MG TAB PO SCH ×2 (09:31→20:50)
[2018-02-20] MEDS: predniSONE 10 MG TAB PO SCH (09:31)
[2018-02-20] MEDS: POTASSIUM CHLORIDE 20 MEQ CONTROLLED RELEASE TAB PO SCH ×3 (09:31→17:06)
--- NOTE | 2018-02-20 10:01 | HHI.IDPN ---
Subjective Subjective Remarks ID COVERAGE is a 42-year-old female with past medical history significant for lupus, gastroparesis, Crohn's disease, hypothyroidism, chronic kidney disease stage III, recurrent hypokalemia, anxiety, on chronic immunosuppressive and Brugada syndrome status post AICD placement October 2017 with history of previous device infection who presents to [facility] with complaints of chest pain secondary to sternal wound infection. Her bookkeeping manager is Dr. Cervantes who placed an AICD device in October of 2017. Patient states she started to feel unwell the end of November. In December 2017, she was admitted to [facility], completed 1 week of IV antibiotics followed by removal of the AICD device and had a subsequent treatment of antibiotics 1 week. She then had an AICD device reimplanted and completed 1 month of IV antibiotics. Patient is unsure but thinks that she was treated with Levaquin. She was not discharged on any oral antibiotic treatment. At that time, she was managed by infectious disease physician Dr. Gardner. She was recently admitted 01/18-01/24 for syncope, bradycardia, SHABANA, s/p dopamine drip, then heart rate stabilized and she was cleared by cardiology. At that time, she had a small wound overlying the sternum and was given Bactroban at discharge. About 2 weeks ago, she began developing left axillary pain over the site of her AICD device that radiated underneath the left breast into the mid sternum. She has had a poorly healing sore over the mid chest that began to enlarge as well as increased swelling and hardness underneath the left breast. Yesterday the sore opened up with purulent drainage. She reports chills but denies any fever or sweats. She denies any cough or shortness of breath. She denies any nausea or vomiting. States that she has chronic abdominal pain secondary to Crohn's disease and gastroparesis that is unchanged. She has a history of MRSA infection left axilla many years ago but states she's been tested multiple times for MRSA since then and is always been negative. She is not sure of what her cultures were that she grew when admitted at [facility] in December with infection of the AICD device but is certain it was not MRSA. Infectious disease has been consulted for evaluation and management of recurrent AICD device infection. Notes reviewed Temps ok Noted some drainage on a healed incision in substernal region had wound vac change yesterday to her L chest wound C/O swelling in her L axillary region s/p I&D of abscess and removal of AICD external on 02/14/18. No fever or chills No diarrhea No leukocytosis. Antibiotics Zyvox oral. Current Medications Medications (Trade) Dose Ordered Sig/Osito Route Start Time Stop Time Status Last Admin (Ferrous Sulfate) 325 mg BIDPC PO 02/06/18 09:00 02/20/18 09:30 (Mag-Ox) 400 mg DAILY PO 02/06/18 09:00 02/20/18 09:31 (Protonix) 40 mg HS PO 02/06/18 21:00 02/19/18 22:14 (KCl) 40 meq TID PO 02/06/18 09:00 02/20/18 09:31 (K-Phos) 500 mg PCHS PO 02/06/18 09:30 02/20/18 09:31 (Aldactone) 25 mg DAILY PO 02/06/18 09:00 02/20/18 09:30 (Oramorph Sr) 15 mg Q8HR PRN PO 02/06/18 12:30 02/20/18 09:30 (Vitamin D3) 20,000 units Q72H PO 02/09/18 09:00 02/18/18 10:27 (Narcan Inj) 0.4 mg UNSCH PRN IV PUSH 02/08/18 13:00 (NS Flush) 2 ml BID IV FLUSH 02/09/18 21:00 02/20/18 09:00 (NS Flush) 2 ml UNSCH PRN IV FLUSH 02/09/18 16:00 (Zyvox) 600 mg Q12HR PO 02/10/18 14:30 02/20/18 09:31 (Zofran Odt) 8 mg Q6H PRN PO 02/10/18 16:00 02/17/18 13:47 (Benadryl) 50 mg Q6H PRN PO 02/10/18 16:00 Ondansetron HCl 8 mg/Dextrose 54 ml @ 216 mls/hr Q6H PRN IV PUSH 02/10/18 16:15 (Surfak) 240 mg HS PO 02/14/18 21:00 02/18/18 21:51 (Milk Of Magnesia Liq) 30 ml DAILY PRN PO 02/14/18 14:30 (Tylenol) 650 mg Q4H PRN PO 02/14/18 14:30 (Sunburst 5-325 Mg) 1 tab Q4H PRN PO 02/14/18 14:30 (Pill Splitter) 1 ea UNSCH PRN OTHER 02/16/18 13:00 (Synthroid) 112 mcg DAILY@0600 PO 02/18/18 06:00 02/20/18 06:01 (Deltasone) 30 mg DAILY PO 02/18/18 09:00 02/20/18 09:31 (Valium) 5 mg TID PRN PO 02/19/18 12:30 02/20/18 09:30 Lines Left forearm PIV without any evidence of infection Past Medical History Brugada syndrome Crohn's disease Lupus Recurrent hypokalemia Hypothyroidism Chronic kidney disease stage III Anxiety GERD Endometriosis AICD placement Oct 2017 with subsequent removal December 2017 and replacement approximately 3 weeks ago. PEG tube placement/removal Port placement and subsequent removal EGD/colonoscopies Appendectomy Laparotomies Ectopic Cystoscopie Allergies: Coded Allergies: Fish Containing Products (Unverified Allergy, Severe, SWELLING IN THROAT, SOB, 02/06/18) cephalexin (Unverified Allergy, Severe, RASH,SWELLING, 02/06/18) ketorolac (Unverified Allergy, Severe, RASH, 02/06/18) penicillin G (Unverified Allergy, Severe, RASH,SWELLING, 02/06/18) prochlorperazine (Unverified Allergy, Mild, DYSTONIC REACTION, 02/06/18) promethazine (Unverified Allergy, Mild, DYSTONIC REACTION, 02/06/18) gabapentin (Unverified Adverse Reaction, Severe, SEIZURES, 02/06/18) Objective . Vital Signs Date Time Temp Pulse Resp B/P (MAP) Pulse Ox O2 Delivery O2 Flow Rate FiO2 02/20/18 08:00 97.7 68 18 111/72 (85) 99 02/20/18 04:00 97.9 80 18 109/51 (70) 98 02/20/18 00:00 97.9 81 18 136/65 (88) 99 02/19/18 20:00 98.2 82 18 142/67 (92) 99 02/19/18 20:00 79 02/19/18 16:00 98.8 87 18 159/70 (99) 99 02/19/18 12:00 98.8 86 18 151/78 (102) 98 02/19/18 10:45 Room Air . Laboratory Tests Test 02/20/18 05:55 White Blood Count 6.7 TH/MM3 Red Blood Count 3.44 MIL/MM3 Hemoglobin 9.8 GM/DL Hematocrit 28.9 % Mean Corpuscular Volume 83.8 FL Mean Corpuscular Hemoglobin 28.4 PG Mean Corpuscular Hemoglobin Concent 33.9 % Red Cell Distribution Width 16.3 % Platelet Count 141 TH/MM3 Mean Platelet Volume 7.3 FL Neutrophils (%) (Auto) 54.0 % Lymphocytes (%) (Auto) 32.6 % Monocytes (%) (Auto) 7.6 % Eosinophils (%) (Auto) 4.7 % Basophils (%) (Auto) 1.1 % Neutrophils # (Auto) 3.6 TH/MM3 Lymphocytes # (Auto) 2.2 TH/MM3 Monocytes # (Auto) 0.5 TH/MM3 Eosinophils # (Auto) 0.3 TH/MM3 Basophils # (Auto) 0.1 TH/MM3 CBC Comment AUTO DIFF Differential Comment AUTO DIFF CONFIRMED Platelet Estimate LOW Platelet Morphology Comment NORMAL Ovalocytes 1+ Laboratory Tests Test 02/18/18 13:42 02/20/18 05:55 Blood Urea Nitrogen 20 MG/DL 21 MG/DL Creatinine 1.36 MG/DL 1.51 MG/DL Random Glucose 134 MG/DL 97 MG/DL Calcium Level 8.6 MG/DL 8.7 MG/DL Phosphorus Level 4.1 MG/DL Magnesium Level 2.0 MG/DL 2.0 MG/DL Sodium Level 143 MEQ/L 142 MEQ/L Potassium Level 3.7 MEQ/L 3.6 MEQ/L Chloride Level 105 MEQ/L 106 MEQ/L Carbon Dioxide Level 29.9 MEQ/L 27.4 MEQ/L Anion Gap 8 MEQ/L 9 MEQ/L Estimat Glomerular Filtration Rate 43 ML/MIN 38 ML/MIN Imaging Last Impressions Soft Tissue Ultrasound 02/07/18 0000 Signed Impressions: Service Date/Time: Wednesday, February 07, 2018 11:15 - CONCLUSION: There is a dominant heterogeneous echotexture fluid collection in the left axilla measuring in excess of 7 cm which has a linear hyperechoic structure coursing through it. There are also some scattered smaller areas of fluid in the anterior chest wall all measuring 1 cm or less. Vic Smith MD Chest CT 02/06/18 0000 Signed Impressions: Service Date/Time: Tuesday, February 06, 2018 10:52 - CONCLUSION: External cardiac pacer/defibrillator with a single lead. The lead courses from the left midaxillary implanted unit and has a 90 bend cephalad at the level of the lower sternum and with an adjacent small apparent fluid collection. Otherwise mildly edematous/indurated soft tissues around the lead. No CT evidence of osteomyelitis. No acute abnormality demonstrated within the thoracic cavity. Brian Arrieta MD Chest X-Ray 02/05/18 0000 Signed Impressions: Service Date/Time: Monday, February 05, 2018 19:55 - CONCLUSION: 1. No active disease. Defibrillator wire overlies the left hemithorax anteriorly. Hay Day MD Physical Exam GENERAL: This is a well-nourished, well-developed female patient, in no apparent distress. Awake and alert. Appears comfortable. SKIN: Warm and dry. Mild erythema over fourth digit of the left foot, chronic. HEENT: Normocephalic. Pupils equal round and reactive. Nose without bleeding. Airway patent. NECK: Trachea midline. No JVD. Supple. CARDIOVASCULAR: Regular rate and rhythm without murmurs, gallops, or rubs. CHEST: Left lateral chest wall wound vac in place. No induration. L axilla looks same as R axilla. Wound below sternum is dry, no redness. RESPIRATORY: Clear to auscultation. Breath sounds equal bilaterally. No wheezes , rales, or rhonchi. GASTROINTESTINAL: Abdomen soft, non-tender, nondistended. Bowel Sounds normoactive x4. MUSCULOSKELETAL: Extremities without clubbing, cyanosis, or edema. NEUROLOGICAL: Awake and alert. Oriented to time, place, person. No focal neuro deficit. Moves all extremities. Normal speech. PSYCHIATRIC: Appropriate mood and affect. Normal insight and judgment. Psych cooperative IV line sites with no e.o infection. Assessment & Plan Remarks Recurrent AICD/lead infection Chest wall abscess: superficial culture with MRSA Deeper cultures with MSSA. No evidence of vegetation. 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 Immunocompromised with chronic prednisone use. Crohn's disease Lupus Hypothyroidism Possible factitious disorder: per psych evaluation. Recommendations: Continue oral zyvox. - follow CBC Follow wound cultures Has a wound vac in place. Will need Life Vest on discharge eventually. Do not anticipate IV antibiotics at present time. Monitor progress Jennifer Arambula MD Feb 20, 2018 10:01
[2018-02-20 12:00] VITALS: BP 163/97; PULSE 88; RESP 18; TEMP 98.2; O2SAT 99
[2018-02-20 16:00] VITALS: BP 152/85; PULSE 84; RESP 18; TEMP 98.3; O2SAT 97
--- NOTE | 2018-02-20 16:13 | HHI.PR ---
Subjective Remarks Follow up wound/AICD infection. Patient reports increasing swelling around the wound vac. No other complaints at this time. Objective Vitals Vital Signs Date Time Temp Pulse Resp B/P (MAP) Pulse Ox O2 Delivery O2 Flow Rate FiO2 02/20/18 12:00 98.2 88 18 163/97 (119) 99 02/20/18 08:00 97.7 68 18 111/72 (85) 99 02/20/18 04:00 97.9 80 18 109/51 (70) 98 02/20/18 00:00 97.9 81 18 136/65 (88) 99 02/19/18 20:00 98.2 82 18 142/67 (92) 99 02/19/18 20:00 79 I/O 02/19/18 02/19/18 02/19/18 02/20/18 02/20/18 02/20/18 06:59 14:59 22:59 06:59 14:59 22:59 Intake Total 240 ml 960 ml Output Total 0 ml Balance 240 ml 960 ml Intake Oral 240 ml 960 ml Drainage Total 0 ml # Voids 4 4 2 # Bowel Movements 0 1 Result Diagram: 02/20/18 0555 02/20/18 0555 Imaging Last Impressions Chest X-Ray 02/15/18 0500 Signed Impressions: Service Date/Time: February 03:49 - CONCLUSION: No acute disease. Clayton Leonard MD Upper Extremity Ultrasound 02/10/18 0000 Signed Impressions: Service Date/Time: Saturday, February 10, 2018 09:58 - CONCLUSION: There is extensive area of occlusive and nonocclusive clot identified within the right upper extremity as noted above.. Tigist Vega MD Soft Tissue Ultrasound 02/07/18 0000 Signed Impressions: Service Date/Time: Wednesday, February 07, 2018 11:15 - CONCLUSION: There is a dominant heterogeneous echotexture fluid collection in the left axilla measuring in excess of 7 cm which has a linear hyperechoic structure coursing through it. There are also some scattered smaller areas of fluid in the anterior chest wall all measuring 1 cm or less. Vic Smith MD Chest CT 02/06/18 0000 Signed Impressions: Service Date/Time: Tuesday, February 06, 2018 10:52 - CONCLUSION: External cardiac pacer/defibrillator with a single lead. The lead courses from the left midaxillary implanted unit and has a 90 bend cephalad at the level of the lower sternum and with an adjacent small apparent fluid collection. Otherwise mildly edematous/indurated soft tissues around the lead. No CT evidence of osteomyelitis. No acute abnormality demonstrated within the thoracic cavity. Brian Arrieta MD Objective Remarks General: No acute distress. Heart: Regular rate and rhythm. No murmur. Lungs: Clear to auscultation bilaterally. No wheezes, rales, or rhonchi. Breathing is nonlabored. Abdomen: Soft, nontender, nondistended. Extremities: No lower extremity edema. Psych: Alert and oriented. Neuro: Normal speech. No focal deficits noted. Skin: Wound VAC in the lateral left axillary region. 2 cm distal sternal wound with mild erythema. Procedures removal of ICD and extraction of leads, wd vac placement Urinary Catheter: No Vascular Central Line Catheter: No A/P Problem List: (1) Cellulitis of chest wall ICD Code: L03.313 - Cellulitis of chest wall Status: Acute (2) SHABANA (acute kidney injury) ICD Code: N17.9 - Acute kidney failure, unspecified Assessment and Plan 1. 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 Continue wound care. Wound VAC in place. Oral Zyvox. Appreciate infectious disease recommendations. Case management assisting with arrangement of outpatient wound VAC. Follow-up as outpatient with CT surgery. 2. Atypical chest pain: Likely secondary to infection. Reproducible with palpation, movement. Continue pain control. 3. Brugada syndrome: LifeVest ordered. 4. Acute kidney injury superimposed on chronic kidney disease stage III: Likely secondary to dehydration. Avoid nephrotoxins. 5. Hypokalemia: Improved. 6. Lupus: Continue prednisone. 7. Anxiety: Chronic. On Valium. 8. Hypothyroidism: Synthroid decreased to 112 mcg daily. 9. Status post psychiatry evaluation: Possible factitious disorder. Follow-up as outpatient. 10. DVT prophylaxis: SCDs, YAHAIRA cardona. Discharge Planning Awaiting arrangements for outpatient wound VAC and LifeVest. Patient also needs PCP follow-up. Case management assisting with discharge planning. Rocky Painting MD Feb 20, 2018 16:13
[2018-02-20 20:00] VITALS: BP 142/68; PULSE 81; RESP 18; TEMP 98.6; O2SAT 99
[2018-02-20] MEDS: PANTOPRAZOLE SOD 40 MG DELAYED RELEASE TAB PO SCH (20:53)
[2018-02-20] MEDS: DOCUSATE CALCIUM 240 MG CAP PO SCH (20:54)
[2018-02-21] VITALS (7 sets, daily range): BP systolic 100–192; BP diastolic 49–89; PULSE 80–102; RESP 17–20; TEMP 97.8–98.6; O2SAT 96–100
[2018-02-21] MEDS: MORPHINE SULFATE 15 MG CONTROLLED RELEASE TAB PO PRN ×3 (01:58→20:59)
[2018-02-21] MEDS: DIAZEPAM 5 MG TAB PO PRN ×3 (03:13→20:58)
[2018-02-21] MEDS: LEVOTHYROXINE SODIUM 112 MCG TAB PO SCH (05:19)
[2018-02-21] MEDS: MAGNESIUM OXIDE 400 MG TAB PO SCH (08:27)
[2018-02-21] MEDS: CHOLECALCIFEROL (VIT D3) 5000 UNIT CAP PO SCH (08:27)
[2018-02-21] MEDS: LINEZOLID 600 MG TAB PO SCH ×2 (08:27→20:58)
[2018-02-21] MEDS: predniSONE 10 MG TAB PO SCH (08:27)
[2018-02-21] MEDS: SPIRONOLACTONE 25 MG TAB PO SCH (08:27)
[2018-02-21] MEDS: FERROUS SULFATE 325 MG (65 MG ELEMENTAL IRON) TAB PO SCH ×2 (08:27→18:00)
[2018-02-21] MEDS: POTASSIUM CHLORIDE 20 MEQ CONTROLLED RELEASE TAB PO SCH ×3 (08:27→18:00)
[2018-02-21] MEDS: SODIUM CHLORIDE 0.9% FLUSH 10 ML FLUSH IV FLUSH SCH ×2 (08:29→21:00)
[2018-02-21] MEDS: POTASSIUM PHOSPHATE MONOBASIC 500 MG TAB PO SCH ×4 (08:31→20:58)
--- NOTE | 2018-02-21 08:56 | HHI.IDPN ---
Subjective Subjective Remarks PATIENT SEEN AND EXAMINED WITH DR. GUERRA is a 42-year-old female with past medical history significant for lupus, gastroparesis, Crohn's disease, hypothyroidism, chronic kidney disease stage III, recurrent hypokalemia, anxiety, on chronic immunosuppressive and Brugada syndrome status post AICD placement October 2017 with history of previous device infection who presents to [facility] with complaints of chest pain secondary to sternal wound infection. Her air analyst is Dr. Cervantes who placed an AICD device in October of 2017. Patient states she started to feel unwell the end of November. In December 2017, she was admitted to [facility], completed 1 week of IV antibiotics followed by removal of the AICD device and had a subsequent treatment of antibiotics 1 week. She then had an AICD device reimplanted and completed 1 month of IV antibiotics. Patient is unsure but thinks that she was treated with Levaquin. She was not discharged on any oral antibiotic treatment. At that time, she was managed by infectious disease physician Dr. Gardner. She was recently admitted 01/18-01/24 for syncope, bradycardia, SHABANA, s/p dopamine drip, then heart rate stabilized and she was cleared by cardiology. At that time, she had a small wound overlying the sternum and was given Bactroban at discharge. About 2 weeks ago, she began developing left axillary pain over the site of her AICD device that radiated underneath the left breast into the mid sternum. She has had a poorly healing sore over the mid chest that began to enlarge as well as increased swelling and hardness underneath the left breast. Yesterday the sore opened up with purulent drainage. She reports chills but denies any fever or sweats. She denies any cough or shortness of breath. She denies any nausea or vomiting. States that she has chronic abdominal pain secondary to Crohn's disease and gastroparesis that is unchanged. She has a history of MRSA infection left axilla many years ago but states she's been tested multiple times for MRSA since then and is always been negative. She is not sure of what her cultures were that she grew when admitted at [facility] in December with infection of the AICD device but is certain it was not MRSA. Infectious disease has been consulted for evaluation and management of recurrent AICD device infection. Notes reviewed Wound care noted reviewed patient complaining of recurrence of drainage from sternal wound and increased hardness/swelling in left axilla and under left breast reports nausea, no vomiting No fever but reports chills also c/o left sided low back/flank pain no rash no diarrhea chronic diffuse abdominal pain no dysuria wound vac change 2 days ago afebrile s/p I&D of abscess and removal of AICD external on 02/14/18. superficial infx cx + MRSA, deeper infx + staph Antibiotics Zyvox oral. Current Medications Medications (Trade) Dose Ordered Sig/Osito Route Start Time Stop Time Status Last Admin (Ferrous Sulfate) 325 mg BIDPC PO 02/06/18 09:00 02/21/18 08:27 (Mag-Ox) 400 mg DAILY PO 02/06/18 09:00 02/21/18 08:27 (Protonix) 40 mg HS PO 02/06/18 21:00 02/20/18 20:53 (KCl) 40 meq TID PO 02/06/18 09:00 02/21/18 08:27 (K-Phos) 500 mg PCHS PO 02/06/18 09:30 02/21/18 08:31 (Aldactone) 25 mg DAILY PO 02/06/18 09:00 02/21/18 08:27 (Oramorph Sr) 15 mg Q8HR PRN PO 02/06/18 12:30 02/21/18 01:58 (Vitamin D3) 20,000 units Q72H PO 02/09/18 09:00 02/21/18 08:27 (Narcan Inj) 0.4 mg UNSCH PRN IV PUSH 02/08/18 13:00 (NS Flush) 2 ml BID IV FLUSH 02/09/18 21:00 02/21/18 08:29 (NS Flush) 2 ml UNSCH PRN IV FLUSH 02/09/18 16:00 (Zyvox) 600 mg Q12HR PO 02/10/18 14:30 02/21/18 08:27 (Zofran Odt) 8 mg Q6H PRN PO 02/10/18 16:00 02/17/18 13:47 (Benadryl) 50 mg Q6H PRN PO 02/10/18 16:00 Ondansetron HCl 8 mg/Dextrose 54 ml @ 216 mls/hr Q6H PRN IV PUSH 02/10/18 16:15 (Surfak) 240 mg HS PO 02/14/18 21:00 02/18/18 21:51 (Milk Of Magnesia Liq) 30 ml DAILY PRN PO 02/14/18 14:30 (Tylenol) 650 mg Q4H PRN PO 02/14/18 14:30 (Flomaton 5-325 Mg) 1 tab Q4H PRN PO 02/14/18 14:30 (Pill Splitter) 1 ea UNSCH PRN OTHER 02/16/18 13:00 (Synthroid) 112 mcg DAILY@0600 PO 02/18/18 06:00 02/21/18 05:19 (Deltasone) 30 mg DAILY PO 02/18/18 09:00 02/21/18 08:27 (Valium) 5 mg TID PRN PO 02/19/18 12:30 02/21/18 03:13 Lines Left forearm PIV without any evidence of infection Past Medical History Brugada syndrome Crohn's disease Lupus Recurrent hypokalemia Hypothyroidism Chronic kidney disease stage III Anxiety GERD Endometriosis AICD placement Oct 2017 with subsequent removal December 2017 and replacement approximately 3 weeks ago. PEG tube placement/removal Port placement and subsequent removal EGD/colonoscopies Appendectomy Laparotomies Ectopic Cystoscopie (Robyn Baldwin) Allergies: Coded Allergies: Fish Containing Products (Unverified Allergy, Severe, SWELLING IN THROAT, SOB, 02/06/18) cephalexin (Unverified Allergy, Severe, RASH,SWELLING, 02/06/18) ketorolac (Unverified Allergy, Severe, RASH, 02/06/18) penicillin G (Unverified Allergy, Severe, RASH,SWELLING, 02/06/18) prochlorperazine (Unverified Allergy, Mild, DYSTONIC REACTION, 02/06/18) promethazine (Unverified Allergy, Mild, DYSTONIC REACTION, 02/06/18) gabapentin (Unverified Adverse Reaction, Severe, SEIZURES, 02/06/18) Objective . Vital Signs Date Time Temp Pulse Resp B/P (MAP) Pulse Ox O2 Delivery O2 Flow Rate FiO2 02/21/18 04:00 98.5 82 18 113/57 (75) 97 02/21/18 00:00 98.0 83 18 100/49 (66) 98 02/20/18 20:00 98.6 81 18 142/68 (92) 99 02/20/18 16:00 98.3 84 18 152/85 (107) 97 02/20/18 12:00 98.2 88 18 163/97 (119) 99 . Laboratory Tests Test 02/20/18 05:55 White Blood Count 6.7 TH/MM3 Red Blood Count 3.44 MIL/MM3 Hemoglobin 9.8 GM/DL Hematocrit 28.9 % Mean Corpuscular Volume 83.8 FL Mean Corpuscular Hemoglobin 28.4 PG Mean Corpuscular Hemoglobin Concent 33.9 % Red Cell Distribution Width 16.3 % Platelet Count 141 TH/MM3 Mean Platelet Volume 7.3 FL Neutrophils (%) (Auto) 54.0 % Lymphocytes (%) (Auto) 32.6 % Monocytes (%) (Auto) 7.6 % Eosinophils (%) (Auto) 4.7 % Basophils (%) (Auto) 1.1 % Neutrophils # (Auto) 3.6 TH/MM3 Lymphocytes # (Auto) 2.2 TH/MM3 Monocytes # (Auto) 0.5 TH/MM3 Eosinophils # (Auto) 0.3 TH/MM3 Basophils # (Auto) 0.1 TH/MM3 CBC Comment AUTO DIFF Differential Comment AUTO DIFF CONFIRMED Platelet Estimate LOW Platelet Morphology Comment NORMAL Ovalocytes 1+ Blood Urea Nitrogen 21 MG/DL Creatinine 1.51 MG/DL Random Glucose 97 MG/DL Calcium Level 8.7 MG/DL Magnesium Level 2.0 MG/DL Sodium Level 142 MEQ/L Potassium Level 3.6 MEQ/L Chloride Level 106 MEQ/L Carbon Dioxide Level 27.4 MEQ/L Anion Gap 9 MEQ/L Estimat Glomerular Filtration Rate 38 ML/MIN Imaging Last Impressions Chest X-Ray 02/15/18 0500 Signed Impressions: Service Date/Time: February 03:49 - CONCLUSION: No acute disease. Clayton Leonard MD Upper Extremity Ultrasound 02/10/18 0000 Signed Impressions: Service Date/Time: Saturday, February 10, 2018 09:58 - CONCLUSION: There is extensive area of occlusive and nonocclusive clot identified within the right upper extremity as noted above.. Tigist Vega MD Soft Tissue Ultrasound 02/07/18 0000 Signed Impressions: Service Date/Time: Wednesday, February 07, 2018 11:15 - CONCLUSION: There is a dominant heterogeneous echotexture fluid collection in the left axilla measuring in excess of 7 cm which has a linear hyperechoic structure coursing through it. There are also some scattered smaller areas of fluid in the anterior chest wall all measuring 1 cm or less. Vic Smith MD Chest CT 02/06/18 0000 Signed Impressions: Service Date/Time: Tuesday, February 06, 2018 10:52 - CONCLUSION: External cardiac pacer/defibrillator with a single lead. The lead courses from the left midaxillary implanted unit and has a 90 bend cephalad at the level of the lower sternum and with an adjacent small apparent fluid collection. Otherwise mildly edematous/indurated soft tissues around the lead. No CT evidence of osteomyelitis. No acute abnormality demonstrated within the thoracic cavity. Brian Arrieta MD Physical Exam GENERAL: This is a well-nourished, well-developed female patient, in no apparent distress. Awake and alert, lying in bed. Appears comfortable. SKIN: Warm and dry. HEENT: Normocephalic. Pupils equal round and reactive. Nose without bleeding. Airway patent. MMM. NECK: Trachea midline. CARDIOVASCULAR: Regular rate and rhythm without murmurs, gallops, or rubs. CHEST: Left lateral chest wall/axilla wound vac in place. No appreciable induration or swelling. +TTP. (+)appreciable induration under left breast, + TTP, ?scar. No active drainage noted from sternal wound, no erythema. Patient actively manipulating skin under left breast and around mid sternal wound in attempt to express drainage. No erythema in left axilla or lateral chest, under left breast. RESPIRATORY: Clear to auscultation. Breath sounds equal bilaterally. No wheezes , rales, or rhonchi. GASTROINTESTINAL: Abdomen soft, nondistended. Bowel Sounds normoactive x4. (+) diffuse tenderness to palpation, chronic. MUSCULOSKELETAL: Extremities without clubbing, cyanosis, or edema. (+) Tenderness to palpation left sided flank/low back. No edema/erythema noted over area. NEUROLOGICAL: Awake and alert. Oriented to time, place, person. No focal neuro deficit. Moves all extremities. Normal speech. PSYCHIATRIC: Calm and pleasant. Appropriate mood and affect. Insight and judgment somewhat questionable. Left forearm IV line site with no e.o infection. (Robyn Baldwin) Assessment & Plan Remarks Recurrent AICD/lead infection Chest wall abscess: superficial culture with MRSA Deeper cultures with MSSA. -patient c/o persistent drainage from mid sternal wound and worsening hardness and swelling in left axilla and under left breast. No drainage or edema appreciated. (+)Induration under left breast ?scar tissue No evidence of vegetation. 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 Immunocompromised with chronic prednisone use. Crohn's disease Lupus Hypothyroidism Possible factitious disorder: per psych evaluation. Left sided low back/flank pain ?musculoskeletal Creatinine trending up Recommendations: Continue oral zyvox. - follow CBC, platelets appear stable Has a wound vac in place Will need Life Vest on discharge eventually. Do not anticipate IV antibiotics at present time. Monitor progress (Robyn Baldwin) Remarks The exam, history, and the medical decision-making described in the above note were completed with the assistance of the mid-level provider. I reviewed and agree with the findings presented. I attest that I had a [id number] encounter with the patient on the same day, and personally performed and documented my assessment and findings in the medical record. Nursing staff reports that patient keeps picking on her pacemaker site surgical incision which appears to be nice and clean on admission but now has a skin break. Nursing staff also reports the patient continues to press on her wound VAC site and tries to express material from the central opening at the sternum site. On examination: Wound VAC in place. Overall the wound appears to be significantly improved since admission. The central xiphisternal opening appears to be closed with there is evidence of patient tampering on the scab. Overall in duration appears to significantly reduce except for under the breast there is an area that appears to be still indurated intimately. Case discussed with charge nurse and explained patient's tendency to manipulate her wounds and the concerns by psychiatrist Case discussed with Dr. Painting await Vest and wound vac arrangements. Will follow prn. Would like to avoid IV line hence on Oral Zyvox. Follow CBC, CMP, CRP once a week. (Lay Guerra MD) Robyn Baldwin Feb 21, 2018 08:56 Lay Guerra MD Feb 21, 2018 17:49
--- NOTE | 2018-02-21 13:49 | HHI.PR ---
Subjective Remarks Follow-up wound, AICD infection. Patient reporting some drainage from the sternal wound. Still with tenderness in the left axilla. Denies chest pain or dyspnea. Objective Vitals Vital Signs Date Time Temp Pulse Resp B/P (MAP) Pulse Ox O2 Delivery O2 Flow Rate FiO2 02/21/18 12:00 97.8 93 17 136/79 (98) 97 02/21/18 08:00 98.0 80 17 170/89 (116) 100 02/21/18 04:00 98.5 82 18 113/57 (75) 97 02/21/18 00:00 98.0 83 18 100/49 (66) 98 02/20/18 20:00 98.6 81 18 142/68 (92) 99 02/20/18 16:00 98.3 84 18 152/85 (107) 97 I/O 02/20/18 02/20/18 02/20/18 02/21/18 02/21/18 02/21/18 07:00 15:00 23:00 07:00 15:00 23:00 Intake Total 1250 ml Balance 1250 ml Intake Oral 1250 ml # Voids 2 7 2 # Bowel Movements 1 Result Diagram: 02/20/18 0555 02/20/18 0555 Imaging Last Impressions Chest X-Ray 02/15/18 0500 Signed Impressions: Service Date/Time: February 03:49 - CONCLUSION: No acute disease. Clayton Leonard MD Upper Extremity Ultrasound 02/10/18 0000 Signed Impressions: Service Date/Time: Saturday, February 10, 2018 09:58 - CONCLUSION: There is extensive area of occlusive and nonocclusive clot identified within the right upper extremity as noted above.. Tigist Vega MD Soft Tissue Ultrasound 02/07/18 0000 Signed Impressions: Service Date/Time: Wednesday, February 07, 2018 11:15 - CONCLUSION: There is a dominant heterogeneous echotexture fluid collection in the left axilla measuring in excess of 7 cm which has a linear hyperechoic structure coursing through it. There are also some scattered smaller areas of fluid in the anterior chest wall all measuring 1 cm or less. Vic Smith MD Chest CT 02/06/18 0000 Signed Impressions: Service Date/Time: Tuesday, February 06, 2018 10:52 - CONCLUSION: External cardiac pacer/defibrillator with a single lead. The lead courses from the left midaxillary implanted unit and has a 90 bend cephalad at the level of the lower sternum and with an adjacent small apparent fluid collection. Otherwise mildly edematous/indurated soft tissues around the lead. No CT evidence of osteomyelitis. No acute abnormality demonstrated within the thoracic cavity. Brian Arrieta MD Objective Remarks General: No acute distress. Heart: Regular rate and rhythm. No murmur. Lungs: Clear to auscultation bilaterally. No wheezes, rales, or rhonchi. Breathing is nonlabored. Abdomen: Soft, nontender, nondistended. Extremities: No lower extremity edema. Psych: Alert and oriented. Neuro: Normal speech. No focal deficits noted. Skin: Wound VAC in the lateral left axillary region. 2 cm distal sternal wound with mild surrounding erythema. Procedures removal of ICD and extraction of leads, wd vac placement Urinary Catheter: No Vascular Central Line Catheter: No A/P Problem List: (1) Cellulitis of chest wall ICD Code: L03.313 - Cellulitis of chest wall Status: Acute (2) SHABANA (acute kidney injury) ICD Code: N17.9 - Acute kidney failure, unspecified Assessment and Plan 1. 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 Continue wound care. Wound VAC in place. Oral Zyvox. Appreciate infectious disease recommendations. Case management assisting with arrangement of outpatient wound VAC. Follow-up as outpatient with CT surgery. Discussed with Dr. Guerra. 2. Atypical chest pain: Likely secondary to infection. Reproducible with palpation, movement. Continue pain control. 3. Brugada syndrome: LifeVest ordered. 4. Acute kidney injury superimposed on chronic kidney disease stage III: Likely secondary to dehydration. Avoid nephrotoxins. 5. Hypokalemia: Improved. 6. Lupus: Continue prednisone. 7. Anxiety: Chronic. On Valium. 8. Hypothyroidism: Synthroid decreased to 112 mcg daily. 9. Status post psychiatry evaluation: Possible factitious disorder. Follow-up as outpatient. 10. DVT prophylaxis: SCDs, YAHAIRA cardona. Discharge Planning Awaiting arrangements for outpatient wound VAC and LifeVest. Patient also needs PCP follow-up. Case management assisting with discharge planning. Rocky Painting MD Feb 21, 2018 13:49
--- NOTE | 2018-02-21 14:39 | PD.WCN.NOT ---
Wound Consult Description: Wound VAC dressing change to left lateral chest as ordered Communicated with: MARIA ISABEL Daugherty Patient Dr Guerra Recommendation: Change wound VAC dressing to left lateral chest -- with settings @125mmHg low continuous suction. Reinforce dressing for leaks using transparent VAC drape If unable to obtain or maintain seal after 2 hours please remove black foam dressing and place NS moistened gauze into wound bed and cover with dry gauze dressing until seen by wound care or physician. Additional Information: Patient seen on for wound VAC change to left lateral chest using small black granufoam dressing kit with sensitrac pad. Canister was not changed today 02/21/18. Neg Pressure Wound Therapy Wound Location Wound Location: Left Lateral Chest Wound Description Length: 6cm Width: 2cm Depth: 2 cm Tunneling: at 3 o'clock 0.8cm Wound bed appearance: 100% beefy red granulated tissue. Wound bed is moist. No odor and no active drainage noted. Periwound appearance: Unremarkable Settings Suction: 125 mmHg, Continuous Intensity: Low Other Information: Bridged, Windowpaned, Mushroomed Foam type: Black Number of pieces: 1 (One piece of black foam in wound bed. One piece used for sensitrac pad placement distal to wound bed.) Additonal Information Patient seen for wound VAC dressing change on . One piece of black granufoam removed from wound bed and one piece of white foam removed from tunneled area noted @3 o'clock now measuring 0.8cm. Wound was cleansed with NS and gauze. Wound was measured above. At the writers discretion, the white foam was not inserted into the <1cm tunneled area. The wound bed depth has not changed as the white foam was laying in the bottom of the wound bed preventing granulation tissue growth at the base. One piece of black granufoam was cut smaller than wound bed and beveled at the bottom to allow for granulation to resume at the base of the wound bed. Periwound was skin prepped and window paned. One piece of black granufoam was used for trac pad placement after protecting intact periwound skin with drape. Machine was turned on with settings @125mmHg low continuous suction and working properly without leaks when leaving patient room. Patient tolerated wound VAC dressing change well. Next wound VAC change to be done Monday by wound care team if patient is not discharged prior. Cande Camarena [facility] Feb 21, 2018 14:39
[2018-02-21] MEDS ORDERED: MORPHINE SULFATE 2 MG/ML SYRINGE IV PUSH ONE (15:30)
[2018-02-21] MEDS: DOCUSATE CALCIUM 240 MG CAP PO SCH (20:57)
[2018-02-21] MEDS: PANTOPRAZOLE SOD 40 MG DELAYED RELEASE TAB PO SCH (20:58)
[2018-02-22] VITALS (8 sets, daily range): BP systolic 140–173; BP diastolic 70–107; PULSE 80–94; RESP 19–20; TEMP 97.9–98.4; O2SAT 97–99
[2018-02-22] MEDS: DIAZEPAM 5 MG TAB PO PRN ×3 (04:51→20:57)
[2018-02-22] MEDS: MORPHINE SULFATE 15 MG CONTROLLED RELEASE TAB PO PRN ×3 (04:52→20:58)
[2018-02-22] MEDS: LEVOTHYROXINE SODIUM 112 MCG TAB PO SCH (06:00)
[2018-02-22 08:35] LABS: BASOPHIL # 0.1 TH/MM3 (0-0.2); EOSINOPHIL # 0.2 TH/MM3 (0-0.4); EOSINOPHIL % 2.9 % (0.0-4.0); HEMOGLOBIN 10.9 GM/DL (11.6-15.3); LYMPH % 24.8 % (9.0-44.0); MEAN CELL VOLUME 85.5 FL (80.0-100.0); MEAN CORPUSCULAR HEMOGLOBIN 28.1 PG (27.0-34.0); MEAN CORPUSCULAR HGB CONC 32.9 % (32.0-36.0); MEAN PLATELET VOLUME 7.6 FL (7.0-11.0); MONO % 7.5 % (0.0-8.0); MONOCYTE # 0.6 TH/MM3 (0-0.9); NEUT % 63.8 % (16.0-70.0); PLATELET COUNT 154 TH/MM3 (150-450); RED BLOOD COUNT 3.86 MIL/MM3 (4.00-5.30); RED CELL DISTRIBUTION WIDTH 16.3 % (11.6-17.2); WHITE BLOOD COUNT 7.9 TH/MM3 (4.0-11.0)
[2018-02-22 09:01] LABS: BICARBONATE 27.1 MEQ/L (21.0-32.0); CALCIUM 9.2 MG/DL (8.5-10.1); CREATININE 1.53 MG/DL (0.50-1.00)
[2018-02-22] MEDS: FERROUS SULFATE 325 MG (65 MG ELEMENTAL IRON) TAB PO SCH ×2 (09:31→17:47)
[2018-02-22] MEDS: MAGNESIUM OXIDE 400 MG TAB PO SCH (09:31)
[2018-02-22] MEDS: LINEZOLID 600 MG TAB PO SCH ×2 (09:31→20:57)
[2018-02-22] MEDS: predniSONE 10 MG TAB PO SCH (09:31)
[2018-02-22] MEDS: SPIRONOLACTONE 25 MG TAB PO SCH (09:31)
[2018-02-22] MEDS: POTASSIUM PHOSPHATE MONOBASIC 500 MG TAB PO SCH ×4 (09:32→20:57)
[2018-02-22] MEDS: SODIUM CHLORIDE 0.9% FLUSH 10 ML FLUSH IV FLUSH SCH ×2 (09:32→21:00)
[2018-02-22] MEDS: POTASSIUM CHLORIDE 20 MEQ CONTROLLED RELEASE TAB PO SCH ×3 (09:32→17:47)
--- NOTE | 2018-02-22 15:52 | HHI.PR ---
Subjective Remarks Follow-up wound, AICD infection. Patient is having some discomfort from the LifeVest, which is right up against the wound VAC. No shortness of breath or chest pain. No nausea or vomiting. Objective Vitals Vital Signs Date Time Temp Pulse Resp B/P (MAP) Pulse Ox O2 Delivery O2 Flow Rate FiO2 02/22/18 12:00 98.4 91 19 155/96 (115) 99 02/22/18 08:00 98.2 91 19 142/70 (94) 97 02/22/18 05:52 20 02/22/18 04:00 98.0 93 20 141/98 (112) 97 02/22/18 00:21 81 02/22/18 00:00 80 20 140/73 (95) 97 02/21/18 20:35 102 02/21/18 20:00 98.1 85 20 192/86 (121) 96 02/21/18 16:00 98.6 89 17 182/86 (118) 99 I/O 02/21/18 02/21/18 02/21/18 02/22/18 02/22/18 02/22/18 06:59 14:59 22:59 06:59 14:59 22:59 Intake Total 960 ml Balance 960 ml Intake Oral 960 ml # Voids 2 13 # Bowel Movements 1 Result Diagram: 02/22/18 0755 02/22/18 0755 Imaging Last Impressions Chest X-Ray 02/15/18 0500 Signed Impressions: Service Date/Time: February 03:49 - CONCLUSION: No acute disease. Clayton Leonard MD Upper Extremity Ultrasound 02/10/18 0000 Signed Impressions: Service Date/Time: Saturday, February 10, 2018 09:58 - CONCLUSION: There is extensive area of occlusive and nonocclusive clot identified within the right upper extremity as noted above.. Tigist Vega MD Soft Tissue Ultrasound 02/07/18 0000 Signed Impressions: Service Date/Time: Wednesday, February 07, 2018 11:15 - CONCLUSION: There is a dominant heterogeneous echotexture fluid collection in the left axilla measuring in excess of 7 cm which has a linear hyperechoic structure coursing through it. There are also some scattered smaller areas of fluid in the anterior chest wall all measuring 1 cm or less. Vic Smith MD Chest CT 02/06/18 0000 Signed Impressions: Service Date/Time: Tuesday, February 06, 2018 10:52 - CONCLUSION: External cardiac pacer/defibrillator with a single lead. The lead courses from the left midaxillary implanted unit and has a 90 bend cephalad at the level of the lower sternum and with an adjacent small apparent fluid collection. Otherwise mildly edematous/indurated soft tissues around the lead. No CT evidence of osteomyelitis. No acute abnormality demonstrated within the thoracic cavity. Brian Arrieta MD Objective Remarks General: No acute distress. Wearing a LifeVest. Heart: Regular rate and rhythm. No murmur. Lungs: Clear to auscultation bilaterally. No wheezes, rales, or rhonchi. Breathing is nonlabored. Abdomen: Soft, nontender, nondistended. Extremities: No lower extremity edema. Psych: Alert and oriented. Neuro: Normal speech. No focal deficits noted. Skin: Wound VAC in the lateral left axillary region. Procedures removal of ICD and extraction of leads, wd vac placement Urinary Catheter: No Vascular Central Line Catheter: No A/P Problem List: (1) Cellulitis of chest wall ICD Code: L03.313 - Cellulitis of chest wall Status: Acute (2) SHABANA (acute kidney injury) ICD Code: N17.9 - Acute kidney failure, unspecified Assessment and Plan 1. 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 Continue wound care. Wound VAC in place. Oral Zyvox. Appreciate infectious disease recommendations. Case management assisting with arrangement of outpatient wound VAC. Follow-up as outpatient with CT surgery. 2. Atypical chest pain: Likely secondary to infection. Reproducible with palpation, movement. Continue pain control. 3. Brugada syndrome: LifeVest in place. 4. Acute kidney injury superimposed on chronic kidney disease stage III: Likely secondary to dehydration, medications. 5. Hypokalemia: Improved. 6. Lupus: Continue prednisone. 7. Anxiety: Chronic. On Valium. 8. Hypothyroidism: Synthroid decreased to 112 mcg daily. 9. Status post psychiatry evaluation: Possible factitious disorder. Follow-up as outpatient. 10. DVT prophylaxis: ROBINSONsYAHAIRA. Discharge Planning Awaiting arrangements for outpatient wound VAC. Patient also needs PCP follow- up. Case management assisting with discharge planning. Rocky Painting MD Feb 22, 2018 15:52
[2018-02-22] MEDS: PANTOPRAZOLE SOD 40 MG DELAYED RELEASE TAB PO SCH (20:57)
[2018-02-22] MEDS: DOCUSATE CALCIUM 240 MG CAP PO SCH (21:00)
[2018-02-23] VITALS (7 sets, daily range): BP systolic 98–181; BP diastolic 49–99; PULSE 79–101; RESP 17–20; TEMP 97.9–99.1; O2SAT 96–98
[2018-02-23] MEDS: DIAZEPAM 5 MG TAB PO PRN ×3 (05:05→21:30)
[2018-02-23] MEDS: LEVOTHYROXINE SODIUM 112 MCG TAB PO SCH (05:05)
[2018-02-23] MEDS: MORPHINE SULFATE 15 MG CONTROLLED RELEASE TAB PO PRN ×3 (05:05→21:30)
[2018-02-23 07:41] LABS: AUTOMATED NEUTROPHIL # 3.1 TH/MM3 (1.8-7.7); BASOPHIL # 0.1 TH/MM3 (0-0.2); BASOPHIL % 0.9 % (0.0-2.0); EOSINOPHIL # 0.3 TH/MM3 (0-0.4); EOSINOPHIL % 4.5 % (0.0-4.0); HEMATOCRIT 28.8 % (35.0-46.0); HEMOGLOBIN 9.7 GM/DL (11.6-15.3); LYMPH % 35.9 % (9.0-44.0); LYMPHOCYTE # 2.3 TH/MM3 (1.0-4.8); MEAN CELL VOLUME 85.4 FL (80.0-100.0); MEAN CORPUSCULAR HEMOGLOBIN 28.6 PG (27.0-34.0); MEAN CORPUSCULAR HGB CONC 33.5 % (32.0-36.0); MEAN PLATELET VOLUME 8.1 FL (7.0-11.0); MONO % 10.6 % (0.0-8.0); MONOCYTE # 0.7 TH/MM3 (0-0.9); NEUT % 48.1 % (16.0-70.0); PLATELET COUNT 130 TH/MM3 (150-450); RED BLOOD COUNT 3.38 MIL/MM3 (4.00-5.30); RED CELL DISTRIBUTION WIDTH 16.3 % (11.6-17.2); WHITE BLOOD COUNT 6.5 TH/MM3 (4.0-11.0)
[2018-02-23 08:06] LABS: BICARBONATE 27.5 MEQ/L (21.0-32.0); CALCIUM 8.3 MG/DL (8.5-10.1); CREATININE 1.31 MG/DL (0.50-1.00)
[2018-02-23] MEDS ORDERED: POTASSIUM CHLORIDE 20 MEQ CONTROLLED RELEASE TAB PO ONE (10:15)
[2018-02-23] MEDS: predniSONE 10 MG TAB PO SCH (11:58)
[2018-02-23] MEDS: SPIRONOLACTONE 25 MG TAB PO SCH (11:58)
[2018-02-23] MEDS: POTASSIUM PHOSPHATE MONOBASIC 500 MG TAB PO SCH ×4 (11:59→21:30)
[2018-02-23] MEDS: FERROUS SULFATE 325 MG (65 MG ELEMENTAL IRON) TAB PO SCH ×2 (11:59→17:37)
[2018-02-23] MEDS: MAGNESIUM OXIDE 400 MG TAB PO SCH (11:59)
[2018-02-23] MEDS: LINEZOLID 600 MG TAB PO SCH ×2 (11:59→21:30)
[2018-02-23] MEDS: POTASSIUM CHLORIDE 20 MEQ CONTROLLED RELEASE TAB PO SCH ×3 (11:59→17:38)
[2018-02-23] MEDS: SODIUM CHLORIDE 0.9% FLUSH 10 ML FLUSH IV FLUSH SCH ×2 (12:00→21:32)
--- NOTE | 2018-02-23 13:06 | PD.WCN.NOT ---
Wound Consult Description: Wound VAC dressing change to left lateral chest as ordered Recommendation: Change wound VAC dressing to left lateral chest M-W-F with settings @125mmHg low continuous suction. Reinforce dressing for leaks using transparent VAC drape If unable to obtain or maintain seal after 2 hours please remove black foam dressing and place NS moistened gauze into wound bed and cover with dry gauze dressing until seen by wound care or physician. Neg Pressure Wound Therapy Wound Location Wound Location: Wound VAC dressing change to left lateral chest as ordered -- Wound Description Length: 5.8cm Width: 3.4cm Depth: 1.2 cm Wound bed appearance: 100% beefy red granulated tissue. Wound bed is moist. No odor and no active drainage noted. Periwound appearance: Unremarkable Settings Suction: 125 mmHg, Continuous Intensity: Low Other Information: Bridged, Windowpaned, Mushroomed Foam type: Black Number of pieces: 1 (One piece of black foam in wound bed. One piece used for sensitrac pad placement distal to wound bed.) Additonal Information Patient was seen today by fha underwriter for wound vac dressing change.Patient alert and oriented x3.Denies any discomfort/pain.patient state she is worried about life vest interfering with wound vac dressing.Reassured patient draping and sponge will not be touching vest.Wound cleansed with normal saline pat dry skin prep applied to periwound and bridging area.Drape applied bridging to left scapula area single black sponge applied to wound base and bridged to left scapula area.track pad applied suction started @125mmHg with no leaks noted.Patient tolerated wound care well.Tobacco Wetter will reach out to engineering recruiter regarding life vest and wound vac. Ramy Cleaning [facility] Feb 23, 2018 13:06
--- NOTE | 2018-02-23 15:49 | HHI.PR ---
Subjective Remarks Follow-up wound, AICD infection. Patient is frustrated because she has had difficulty scheduling outpatient follow-up. Pain is better today. Still concerned about the location of the LifeVest with respect to the wound VAC. Objective Vitals Vital Signs Date Time Temp Pulse Resp B/P (MAP) Pulse Ox O2 Delivery O2 Flow Rate FiO2 02/23/18 12:00 98.1 101 17 176/82 (113) 98 02/23/18 08:00 97.9 79 17 98/49 (65) 96 02/23/18 06:05 18 02/23/18 04:07 98.1 92 20 121/59 (79) 97 02/23/18 00:05 95 02/23/18 00:00 98.1 93 20 163/99 (120) 98 02/22/18 20:00 97.9 84 20 157/79 (105) 99 02/22/18 18:35 98.1 94 19 159/98 (118) 99 02/22/18 16:00 98.1 89 19 173/107 (129) 98 I/O 02/22/18 02/22/18 02/22/18 02/23/18 02/23/18 02/23/18 07:00 15:00 23:00 07:00 15:00 23:00 Intake Total 1075 ml Output Total 50 ml Balance 1075 ml -50 ml Intake Oral 1075 ml Drainage Total 50 ml # Voids 6 # Bowel Movements 1 Result Diagram: 02/23/18 0452 02/23/18 0452 Imaging Last Impressions Chest X-Ray 02/15/18 0500 Signed Impressions: Service Date/Time: February 03:49 - CONCLUSION: No acute disease. Clayton Leonard MD Upper Extremity Ultrasound 02/10/18 0000 Signed Impressions: Service Date/Time: Saturday, February 10, 2018 09:58 - CONCLUSION: There is extensive area of occlusive and nonocclusive clot identified within the right upper extremity as noted above.. Tigist Vega MD Soft Tissue Ultrasound 02/07/18 0000 Signed Impressions: Service Date/Time: Wednesday, February 07, 2018 11:15 - CONCLUSION: There is a dominant heterogeneous echotexture fluid collection in the left axilla measuring in excess of 7 cm which has a linear hyperechoic structure coursing through it. There are also some scattered smaller areas of fluid in the anterior chest wall all measuring 1 cm or less. Vic Smith MD Chest CT 02/06/18 0000 Signed Impressions: Service Date/Time: Tuesday, February 06, 2018 10:52 - CONCLUSION: External cardiac pacer/defibrillator with a single lead. The lead courses from the left midaxillary implanted unit and has a 90 bend cephalad at the level of the lower sternum and with an adjacent small apparent fluid collection. Otherwise mildly edematous/indurated soft tissues around the lead. No CT evidence of osteomyelitis. No acute abnormality demonstrated within the thoracic cavity. Brian Arrieta MD Objective Remarks Examined in the presence of the nurse. General: No acute distress. Wearing a LifeVest. Heart: Regular rate and rhythm. No murmur. Lungs: Clear to auscultation bilaterally. No wheezes, rales, or rhonchi. Breathing is nonlabored. Abdomen: Soft, nontender, nondistended. Extremities: No lower extremity edema. Psych: Alert and oriented. Neuro: Normal speech. No focal deficits noted. Skin: Wound VAC in the lateral left axillary region. Procedures removal of ICD and extraction of leads, wd vac placement Urinary Catheter: No Vascular Central Line Catheter: No A/P Problem List: (1) Cellulitis of chest wall ICD Code: L03.313 - Cellulitis of chest wall Status: Acute (2) SHABANA (acute kidney injury) ICD Code: N17.9 - Acute kidney failure, unspecified Assessment and Plan 1. 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 Continue wound care. Wound VAC in place. Oral Zyvox. Appreciate infectious disease recommendations. Case management assisting with arrangement of outpatient wound VAC. Follow-up as outpatient with CT surgery. 2. Atypical chest pain: Likely secondary to infection. Reproducible with palpation, movement. Continue pain control. 3. Brugada syndrome: LifeVest in place. [employer] service liaison representative to evaluate regarding positioning of LifeVest and wound vac. 4. Acute kidney injury superimposed on chronic kidney disease stage III: Likely secondary to dehydration, medications. 5. Hypokalemia: Improved. 6. Lupus: Continue prednisone. 7. Anxiety: Chronic. On Valium. 8. Hypothyroidism: Synthroid decreased to 112 mcg daily. 9. Status post psychiatry evaluation: Possible factitious disorder. Follow-up as outpatient. 10. DVT prophylaxis: ROBINSONsYAHAIRA. Discharge Planning Awaiting arrangements for outpatient wound VAC. Patient also needs PCP follow- up. Case management assisting with discharge planning. Possible discharge Monday or Monday. Rocky Painting MD Feb 23, 2018 15:49
[2018-02-23] MEDS: DOCUSATE CALCIUM 240 MG CAP PO SCH (21:00)
[2018-02-23] MEDS: PANTOPRAZOLE SOD 40 MG DELAYED RELEASE TAB PO SCH (21:30)
[2018-02-24] VITALS: BP 135/64; PULSE 86; RESP 16; TEMP 98.1; O2SAT 98
[2018-02-24] MEDS: DIAZEPAM 5 MG TAB PO PRN ×3 (05:36→21:34)
[2018-02-24] MEDS: LEVOTHYROXINE SODIUM 112 MCG TAB PO SCH (05:36)
[2018-02-24] MEDS: MORPHINE SULFATE 15 MG CONTROLLED RELEASE TAB PO PRN ×3 (05:38→21:36)
[2018-02-24 08:00] VITALS: BP 116/59; PULSE 76; RESP 19; TEMP 98.6; O2SAT 99
[2018-02-24] MEDS: CHOLECALCIFEROL (VIT D3) 5000 UNIT CAP PO SCH (09:29)
[2018-02-24 09:30] VITALS: PULSE 80
[2018-02-24] MEDS: LINEZOLID 600 MG TAB PO SCH ×2 (09:30→21:37)
[2018-02-24] MEDS: SPIRONOLACTONE 25 MG TAB PO SCH (09:30)
[2018-02-24] MEDS: MAGNESIUM OXIDE 400 MG TAB PO SCH (09:30)
[2018-02-24] MEDS: FERROUS SULFATE 325 MG (65 MG ELEMENTAL IRON) TAB PO SCH ×2 (09:30→17:38)
[2018-02-24] MEDS: POTASSIUM CHLORIDE 20 MEQ CONTROLLED RELEASE TAB PO SCH ×3 (09:31→17:38)
[2018-02-24] MEDS: predniSONE 10 MG TAB PO SCH (09:31)
[2018-02-24] MEDS: POTASSIUM PHOSPHATE MONOBASIC 500 MG TAB PO SCH ×4 (09:32→21:00)
[2018-02-24] MEDS: SODIUM CHLORIDE 0.9% FLUSH 10 ML FLUSH IV FLUSH SCH ×2 (09:36→21:38)
[2018-02-24 12:00] VITALS: BP 137/73; PULSE 82; RESP 20; TEMP 98; O2SAT 98
--- NOTE | 2018-02-24 13:58 | HHI.PR ---
Subjective Remarks Follow-up wound/infection. The patient has no complaints at this time. Denies chest pain or dyspnea. Objective Vitals Vital Signs Date Time Temp Pulse Resp B/P (MAP) Pulse Ox O2 Delivery O2 Flow Rate FiO2 02/24/18 12:00 98.0 82 20 137/73 (94) 98 02/24/18 08:00 98.6 76 19 116/59 (78) 99 02/24/18 00:00 98.1 86 16 135/64 (87) 98 02/23/18 20:00 98.7 86 18 112/59 (76) 97 02/23/18 16:00 99.1 88 17 181/98 (125) 98 I/O 02/23/18 02/23/18 02/23/18 02/24/18 02/24/18 02/24/18 07:00 15:00 23:00 07:00 15:00 23:00 Intake Total 1100 ml 600 ml 120 ml Output Total 50 ml Balance -50 ml 1100 ml 600 ml 120 ml Intake Oral 1100 ml 600 ml 120 ml Drainage Total 50 ml # Voids 10 8 # Bowel Movements 4 1 Result Diagram: 02/23/18 0452 02/23/18 0452 Imaging Last Impressions Chest X-Ray 02/15/18 0500 Signed Impressions: Service Date/Time: February 03:49 - CONCLUSION: No acute disease. Clayton Leonard MD Upper Extremity Ultrasound 02/10/18 0000 Signed Impressions: Service Date/Time: Saturday, February 10, 2018 09:58 - CONCLUSION: There is extensive area of occlusive and nonocclusive clot identified within the right upper extremity as noted above.. Tigist Vega MD Soft Tissue Ultrasound 02/07/18 0000 Signed Impressions: Service Date/Time: Wednesday, February 07, 2018 11:15 - CONCLUSION: There is a dominant heterogeneous echotexture fluid collection in the left axilla measuring in excess of 7 cm which has a linear hyperechoic structure coursing through it. There are also some scattered smaller areas of fluid in the anterior chest wall all measuring 1 cm or less. Vic Smith MD Chest CT 02/06/18 0000 Signed Impressions: Service Date/Time: Tuesday, February 06, 2018 10:52 - CONCLUSION: External cardiac pacer/defibrillator with a single lead. The lead courses from the left midaxillary implanted unit and has a 90 bend cephalad at the level of the lower sternum and with an adjacent small apparent fluid collection. Otherwise mildly edematous/indurated soft tissues around the lead. No CT evidence of osteomyelitis. No acute abnormality demonstrated within the thoracic cavity. Brian Arrieta MD Objective Remarks Examined in the presence of the nurse. General: No acute distress. Wearing a LifeVest. Heart: Regular rate and rhythm. No murmur. Lungs: Clear to auscultation bilaterally. No wheezes, rales, or rhonchi. Breathing is nonlabored. Abdomen: Soft, nontender, nondistended. Extremities: No lower extremity edema. Psych: Alert and oriented. Neuro: Normal speech. No focal deficits noted. Skin: Wound VAC in the lateral left axillary region. Procedures removal of ICD and extraction of leads, wd vac placement Urinary Catheter: No Vascular Central Line Catheter: No A/P Problem List: (1) Cellulitis of chest wall ICD Code: L03.313 - Cellulitis of chest wall Status: Acute (2) SHABANA (acute kidney injury) ICD Code: N17.9 - Acute kidney failure, unspecified Assessment and Plan 1. 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 Continue wound care. Wound VAC in place. Oral Zyvox. Appreciate infectious disease recommendations. Case management assisting with arrangement of outpatient wound VAC. Follow-up as outpatient with CT surgery. 2. Atypical chest pain: Improved. Likely secondary to infection. Reproducible with palpation, movement. Continue pain control. 3. Brugada syndrome: LifeVest in place. 4. Acute kidney injury superimposed on chronic kidney disease stage III: Likely secondary to dehydration, medications. 5. Hypokalemia: Improved. 6. Lupus: Continue prednisone. 7. Anxiety: Chronic. On Valium. 8. Hypothyroidism: Synthroid decreased to 112 mcg daily. 9. Status post psychiatry evaluation: Possible factitious disorder. Follow-up as outpatient. 10. DVT prophylaxis: SCDs, YAHAIRA cardona. Discharge Planning Probable discharge home tomorrow. Per case management, home health scheduled to start Monday. Patient has wound VAC and LifeVest. Rocky Painting MD Feb 24, 2018 13:58
[2018-02-24 16:00] VITALS: BP 125/58; PULSE 82; RESP 18; TEMP 98.1; O2SAT 98
[2018-02-24 20:00] VITALS: BP 124/58; PULSE 73; RESP 17; TEMP 97.4; O2SAT 99
[2018-02-24] MEDS: DOCUSATE CALCIUM 240 MG CAP PO SCH (21:00)
[2018-02-24] MEDS: PANTOPRAZOLE SOD 40 MG DELAYED RELEASE TAB PO SCH (21:37)
[2018-02-25] VITALS (8 sets, daily range): BP systolic 111–149; BP diastolic 53–89; PULSE 71–87; RESP 17–19; TEMP 97–98.5; O2SAT 97–100
[2018-02-25] MEDS: LEVOTHYROXINE SODIUM 112 MCG TAB PO SCH (05:18)
[2018-02-25] MEDS: DIAZEPAM 5 MG TAB PO PRN ×2 (06:16→14:24)
[2018-02-25] MEDS: MORPHINE SULFATE 15 MG CONTROLLED RELEASE TAB PO PRN ×3 (06:16→22:35)
[2018-02-25] MEDS: predniSONE 20 MG TAB PO SCH (09:51)
[2018-02-25] MEDS: POTASSIUM CHLORIDE 20 MEQ CONTROLLED RELEASE TAB PO SCH ×3 (09:51→17:59)
[2018-02-25] MEDS: SODIUM CHLORIDE 0.9% FLUSH 10 ML FLUSH IV FLUSH SCH ×2 (09:51→21:44)
[2018-02-25] MEDS: LINEZOLID 600 MG TAB PO SCH ×2 (09:52→21:44)
[2018-02-25] MEDS: MAGNESIUM OXIDE 400 MG TAB PO SCH (09:52)
[2018-02-25] MEDS: SPIRONOLACTONE 25 MG TAB PO SCH (09:52)
[2018-02-25] MEDS: POTASSIUM PHOSPHATE MONOBASIC 500 MG TAB PO SCH ×4 (09:52→21:44)
[2018-02-25] MEDS: FERROUS SULFATE 325 MG (65 MG ELEMENTAL IRON) TAB PO SCH ×2 (09:52→17:59)
--- NOTE | 2018-02-25 10:07 | HHI.FF ---
Face to Face Verification Diagnosis: (1) SHABANA (acute kidney injury) (2) Abscess (3) Cellulitis of chest wall (4) Infection of automatic implantable cardioverter-defibrillator lead (5) AICD generator infection (6) Factitious disorder (7) Brugada syndrome (8) s/p extrraaction of ICD/ epicardial lead Home Health Nursing Order: Wound care and dressing changes Nursing assessment with vital signs Instructions: Wound vac change Monday/Monday/Monday I have seen patient Brisa Hernandez on 02/25/18. My clinical findings support the need for the requested home health care services because: Infection w/ risk of complications I certify that my clinical findings support that this patient is homebound because: Unsafe to leave home unassisted Rocky Painting MD Feb 25, 2018 10:07
[2018-02-25] MEDS ORDERED: PRED20 PO (10:57)
[2018-02-25] MEDS ORDERED: DIAZ10 PO (10:57)
[2018-02-25] MEDS ORDERED: CHOL1CAP24 PO (10:57)
[2018-02-25] MEDS ORDERED: MAGN400T2 PO (10:57)
[2018-02-25] MEDS ORDERED: PANT40TA3 PO (10:57)
[2018-02-25] MEDS ORDERED: K-PHTAB PO (10:57)
[2018-02-25] MEDS ORDERED: SPIR25TA PO (10:57)
[2018-02-25] MEDS ORDERED: FERR325T18 PO (10:57)
[2018-02-25] MEDS ORDERED: ZYVO600T PO (10:57)
[2018-02-25] MEDS ORDERED: POTA-163 PO (10:57)
--- NOTE | 2018-02-25 11:28 | HHI.PR ---
Subjective Remarks Follow up wound/infection. Patient is hesitant to go home. She states that her family will be home tomorrow, but no one is there today. She says that she does not have any way to get into the house. She reports some swelling in her feet. Objective Vitals Vital Signs Date Time Temp Pulse Resp B/P (MAP) Pulse Ox O2 Delivery O2 Flow Rate FiO2 02/25/18 08:00 97.9 75 19 135/71 (92) 100 02/25/18 04:00 98.0 75 17 116/57 (76) 98 02/25/18 00:00 97.0 71 17 120/60 (80) 100 02/24/18 20:00 97.4 73 17 124/58 (80) 99 02/24/18 16:00 98.1 82 18 125/58 (80) 98 02/24/18 14:37 18 02/24/18 12:00 98.0 82 20 137/73 (94) 98 I/O 02/24/18 02/24/18 02/24/18 02/25/18 02/25/18 02/25/18 07:00 15:00 23:00 07:00 15:00 23:00 Intake Total 600 ml 120 ml 720 ml 240 ml Output Total 0 ml 0 ml Balance 600 ml 120 ml 720 ml 240 ml Intake Oral 600 ml 120 ml 720 ml 240 ml Drainage Total 0 ml 0 ml # Voids 8 3 2 # Bowel Movements 1 Result Diagram: 02/23/18 0452 02/23/18 0452 Imaging Last Impressions Chest X-Ray 02/15/18 0500 Signed Impressions: Service Date/Time: February 03:49 - CONCLUSION: No acute disease. Clayton Leonard MD Upper Extremity Ultrasound 02/10/18 0000 Signed Impressions: Service Date/Time: Saturday, February 10, 2018 09:58 - CONCLUSION: There is extensive area of occlusive and nonocclusive clot identified within the right upper extremity as noted above.. Tigist Vega MD Soft Tissue Ultrasound 02/07/18 0000 Signed Impressions: Service Date/Time: Wednesday, February 07, 2018 11:15 - CONCLUSION: There is a dominant heterogeneous echotexture fluid collection in the left axilla measuring in excess of 7 cm which has a linear hyperechoic structure coursing through it. There are also some scattered smaller areas of fluid in the anterior chest wall all measuring 1 cm or less. Vic Smith MD Chest CT 02/06/18 0000 Signed Impressions: Service Date/Time: Tuesday, February 06, 2018 10:52 - CONCLUSION: External cardiac pacer/defibrillator with a single lead. The lead courses from the left midaxillary implanted unit and has a 90 bend cephalad at the level of the lower sternum and with an adjacent small apparent fluid collection. Otherwise mildly edematous/indurated soft tissues around the lead. No CT evidence of osteomyelitis. No acute abnormality demonstrated within the thoracic cavity. Brian Arrieta MD Objective Remarks Examined in the presence of the nurse. General: No acute distress. Wearing a LifeVest. Heart: Regular rate and rhythm. No murmur. Lungs: Clear to auscultation bilaterally. No wheezes, rales, or rhonchi. Breathing is nonlabored. Abdomen: Soft, nontender, nondistended. Extremities: No lower extremity edema. Psych: Alert and oriented. Neuro: Normal speech. No focal deficits noted. Skin: Wound VAC in the lateral left axillary region. Procedures removal of ICD and extraction of leads, wd vac placement Urinary Catheter: No Vascular Central Line Catheter: No A/P Problem List: (1) Cellulitis of chest wall ICD Code: L03.313 - Cellulitis of chest wall Status: Acute (2) SHABANA (acute kidney injury) ICD Code: N17.9 - Acute kidney failure, unspecified Assessment and Plan 1. 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 Continue wound care. Wound VAC in place. Oral Zyvox. Appreciate infectious disease recommendations. Follow-up as outpatient with CT surgery. Outpatient wound vac arranged. 2. Atypical chest pain: Improved. Likely secondary to infection. Reproducible with palpation, movement. Continue pain control. 3. Brugada syndrome: LifeVest in place. 4. Acute kidney injury superimposed on chronic kidney disease stage III: Likely secondary to dehydration, medications. 5. Hypokalemia: Improved. 6. Lupus: Continue prednisone. 7. Anxiety: Chronic. On Valium. 8. Hypothyroidism: Synthroid decreased to 112 mcg daily. 9. Status post psychiatry evaluation: Possible factitious disorder. Follow-up as outpatient. 10. DVT prophylaxis: SCDs, YAHAIRA cardona. Discussed with Dr. Guerra. Patient will need Zyvox for 2 more weeks. Will check CBC today to evaluate platelet count. If decreasing, may need different antibiotic. Discharge Planning Plan was for discharge home today, however patient states that her family is out of town until tomorrow and she does not have keys to the house. Plan for discharge tomorrow. Rocky Painting MD Feb 25, 2018 11:28
[2018-02-25] MEDS ORDERED: PRED10 PO (11:32)
[2018-02-25] MEDS ORDERED: MORP1TAB24 PO (11:32)
[2018-02-25 11:52] LABS: AUTOMATED NEUTROPHIL # 3.9 TH/MM3 (1.8-7.7); BASOPHIL % 0.6 % (0.0-2.0); EOSINOPHIL # 0.2 TH/MM3 (0-0.4); EOSINOPHIL % 2.8 % (0.0-4.0); HEMOGLOBIN 10.9 GM/DL (11.6-15.3); LYMPH % 29.6 % (9.0-44.0); LYMPHOCYTE # 1.9 TH/MM3 (1.0-4.8); MEAN CORPUSCULAR HGB CONC 32.9 % (32.0-36.0); MEAN PLATELET VOLUME 7.3 FL (7.0-11.0); MONOCYTE # 0.4 TH/MM3 (0-0.9); PLATELET COUNT 162 TH/MM3 (150-450); RED BLOOD COUNT 3.89 MIL/MM3 (4.00-5.30); RED CELL DISTRIBUTION WIDTH 16.3 % (11.6-17.2); WHITE BLOOD COUNT 6.5 TH/MM3 (4.0-11.0)
[2018-02-25] MEDS: DOCUSATE CALCIUM 240 MG CAP PO SCH (21:00)
[2018-02-25] MEDS: PANTOPRAZOLE SOD 40 MG DELAYED RELEASE TAB PO SCH (21:44)
[2018-02-26] VITALS: BP 134/60; PULSE 75; RESP 17; TEMP 98.2; O2SAT 97
[2018-02-26 05:53] VITALS: BP 107/56; PULSE 77; RESP 17; TEMP 97.2; O2SAT 94
[2018-02-26] MEDS: DIAZEPAM 5 MG TAB PO PRN ×3 (06:07→22:25)
[2018-02-26] MEDS: LEVOTHYROXINE SODIUM 112 MCG TAB PO SCH (06:07)
[2018-02-26] MEDS: MORPHINE SULFATE 15 MG CONTROLLED RELEASE TAB PO PRN ×3 (06:07→22:25)
[2018-02-26 08:00] VITALS: BP 135/73; PULSE 71; RESP 16; TEMP 97.9; O2SAT 99
[2018-02-26] MEDS: POTASSIUM CHLORIDE 20 MEQ CONTROLLED RELEASE TAB PO SCH ×3 (09:28→18:18)
[2018-02-26] MEDS: MAGNESIUM OXIDE 400 MG TAB PO SCH (09:28)
[2018-02-26] MEDS: POTASSIUM PHOSPHATE MONOBASIC 500 MG TAB PO SCH ×4 (09:28→22:15)
[2018-02-26] MEDS: predniSONE 20 MG TAB PO SCH (09:28)
[2018-02-26] MEDS: LINEZOLID 600 MG TAB PO SCH ×2 (09:28→22:16)
[2018-02-26] MEDS: SPIRONOLACTONE 25 MG TAB PO SCH (09:28)
[2018-02-26] MEDS: FERROUS SULFATE 325 MG (65 MG ELEMENTAL IRON) TAB PO SCH ×2 (09:28→18:18)
[2018-02-26] MEDS: SODIUM CHLORIDE 0.9% FLUSH 10 ML FLUSH IV FLUSH SCH ×2 (09:29→21:00)
--- NOTE | 2018-02-26 10:57 | HHI.DS ---
Discharge Summary Admission Date Feb 07, 2018 at 11:06 Discharge Date: Feb 26, 2018 Admitting Diagnosis chest wound infection/cellulitis (1) Cellulitis of chest wall ICD Code: L03.313 - Cellulitis of chest wall Status: Acute (2) SHABANA (acute kidney injury) ICD Code: N17.9 - Acute kidney failure, unspecified (3) Brugada syndrome ICD Code: I49.8 - Other specified cardiac arrhythmias Status: Chronic (4) Factitious disorder ICD Code: F68.10 - Factitious disorder, unspecified (5) s/p extrraaction of ICD/ epicardial lead (6) Infection of automatic implantable cardioverter-defibrillator lead ICD Code: T82.7XXA - Infection and inflammatory reaction due to other cardiac and vascular devices, implants and grafts, initial encounter Procedures removal of ICD and extraction of leads, wd vac placement Brief History - From Admission 42-year-old female with history of lupus, Brugada syndrome, pacemaker/ defibrillator, hypothyroidism, CKD stage III, presents with concern for sternal wound infection and constant chest pain. The patient has history of syncope with Brugada syndrome, s/p pacer/AICD placement in , subsequently removed due to infection/bacteremia, now s/p replacement 3 weeks ago. She was also recently admitted 01/18-01/24 for syncope, bradycardia, SHABANA, s/p dopamine drip, then heart rate stabilized and she was cleared by cardiology. She was also discharged on bactroban ointment to apply to sternal wound which she has been compliant. She now returns to the ED with chest pain located throughout the left lower anterior chest that radiates around the left lateral thorax that began 2 weeks ago; described as constant burning pain, "feels like fire", worse with any movement. She reports chills, and a fever of 104 a few days ago, but she has been taking tylenol and ibuprofen and no recurrent fevers. Yesterday on February 05, she woke up and her sternal wound and left lateral chest was severely edematous. She rolled over to her side and the wound "opened up" with purulent drainage. She reports intermittent nausea and occasional vomiting over the past few weeks. She does report some lightheadedness, worse upon standing. Denies any shortness of breath. Her ski lift attendant is Dr. Cervantes. She has no other medical complaints to report at this time. CBC/BMP: 02/25/18 1135 02/23/18 0452 Significant Findings Laboratory Tests Test 02/25/18 11:35 Red Blood Count 3.89 MIL/MM3 (4.00-5.30) Hemoglobin 10.9 GM/DL (11.6-15.3) Hematocrit 33.0 % (35.0-46.0) Imaging Last Impressions Chest X-Ray 02/15/18 0500 Signed Impressions: Service Date/Time: February 03:49 - CONCLUSION: No acute disease. Clayton Leonard MD Upper Extremity Ultrasound 02/10/18 0000 Signed Impressions: Service Date/Time: Saturday, February 10, 2018 09:58 - CONCLUSION: There is extensive area of occlusive and nonocclusive clot identified within the right upper extremity as noted above.. Tigist Vega MD Soft Tissue Ultrasound 02/07/18 0000 Signed Impressions: Service Date/Time: Wednesday, February 07, 2018 11:15 - CONCLUSION: There is a dominant heterogeneous echotexture fluid collection in the left axilla measuring in excess of 7 cm which has a linear hyperechoic structure coursing through it. There are also some scattered smaller areas of fluid in the anterior chest wall all measuring 1 cm or less. Vic Smith MD Chest CT 02/06/18 0000 Signed Impressions: Service Date/Time: Tuesday, February 06, 2018 10:52 - CONCLUSION: External cardiac pacer/defibrillator with a single lead. The lead courses from the left midaxillary implanted unit and has a 90 bend cephalad at the level of the lower sternum and with an adjacent small apparent fluid collection. Otherwise mildly edematous/indurated soft tissues around the lead. No CT evidence of osteomyelitis. No acute abnormality demonstrated within the thoracic cavity. Brian Arrieta MD PE at Discharge Examined in the presence of the nurse. General: No acute distress. Wearing a LifeVest. Heart: Regular rate and rhythm. No murmur. Lungs: Clear to auscultation bilaterally. No wheezes, rales, or rhonchi. Breathing is nonlabored. Abdomen: Soft, nontender, nondistended. Extremities: No lower extremity edema. Psych: Alert and oriented. Neuro: Normal speech. No focal deficits noted. Skin: Wound VAC in the lateral left axillary region. Pt update on day of discharge The patient has no complaints at this time. She is ready to go home. Hospital Course The patient was admitted for evaluation of recurrent AICD infection and sternal wound/cellulitis. She was continued on IV antibiotics. Cardiology, infectious disease, and cardiothoracic surgery were consulted. On 02/14/18 patient had removal of AICD device and extraction of presternal lead. Wound VAC was placed at that time. Wound care was continued throughout the hospitalization. Psychiatry was consulted to evaluate for possible factitious disorder. She was switched to oral antibiotics. Case management assisted with arrangements for discharge, including LifeVest and outpatient wound VAC. These were arranged and the patient was cleared for discharge. She was strongly advised to establish with a primary care physician, and case management gave her contact information for the [facility]. She also contacted her insurance provider to have a PCP assigned. Pt Condition on Discharge: Stable Discharge Disposition: Disch w/ Home Health Serv Discharge Time: > 30 minutes Discharge Instructions DIET: Follow Instructions for: As Tolerated, No Restrictions Activities you can perform: Regular-No Restrictions Follow up Referrals: Cardiology - 4 Weeks @ [facility] with Tamara Cervantes MD Infectious Disease - 1 Week with Kristi Nichols MD Mandatory follow-up PCP Follow-up - [address] Tompkins's office stated they do not accept [employer]. Provided patient with [employer] number to call and find Primary Care Doctor in network [phone] Also provided patient with [facility] office address and number. Informed patient they offer same day appointments, To call the day she would like to be seen. Surgical - 2 Weeks with Yousif Preciado MD W[facility] - [address] Griffin office stated patient needs a referral from Primary Care Doctor to be seen. New Medications: Defibrillator Jacket (Defibrillator Jacket) 1 Ea Device EA EXTERNAL ONCE for brugada syndrome , #1 Energy = 150 Joules; VT Threshold = 150 BPM; VF Threshold = 200 BPM Use up to 90 days only pt of Dr Cervantes Prednisone (Prednisone) 10 Mg Tab 10 MG PO DIRECTED for Inflammation, #30 TAB 0 Refills 20mg daily x 7 days, then 10mg daily Levothyroxine (Synthroid) 112 Mcg Tab 112 MCG PO DAILY@0600 for Thyroid Supplement, #30 TAB Linezolid (Zyvox) 600 Mg Tab 600 MG PO Q12HR for Infection, #28 TAB 0 Refills Morphine ER (Morphine ER) 15 Mg Tab 15 MG PO Q8HR PRN for pain 6-10 for 3 Days, #9 TAB 0 Refills Prednisone (Prednisone) 10 Mg Tab 30 MG PO DAILY for Control Inflammation, #30 TAB Continued Medications: Cholecalciferol (Vitamin D3) 10,000 Unit Cap 33982 UNITS PO Q3D @ HS for Nutritional Supplement, #1 BOTTLE 0 Refills (This prescription has been renewed) Diazepam (Valium) 10 Mg Tab 10 MG PO TID PRN for muscle spasm, #6 TAB 0 Refills (This prescription has been renewed) Ferrous Sulfate (Ferrous Sulfate) 325 Mg (65 Mg Iron) Tablet 325 MG PO BIDPC for Nutritional Supplement, #60 TAB 0 Refills (This prescription has been renewed) Magnesium Oxide (Magnesium Oxide) 400 Mg Tab 400 MG PO DAILY for Nutritional Supplement, #30 TAB 0 Refills (This prescription has been renewed) Pantoprazole (Pantoprazole) 40 Mg Tab 40 MG PO HS for Reflux, #30 TAB 0 Refills (This prescription has been renewed) Potassium Chloride ER (Potassium Chloride ER) 20 Meq Tab 40 MEQ PO TID for Electrolyte Replacement, #90 TAB 0 Refills (This prescription has been renewed) Potassium Phosphate Monobasic (K-Phos) 500 Mg Tab 500 MG PO PCHS for Electrolyte Replacement, #120 TAB 0 Refills (This prescription has been renewed) Spironolactone (Spironolactone) 25 Mg Tab 25 MG PO DAILY for Diuretic, #30 TAB 0 Refills (This prescription has been renewed) Discontinued Medications: Levothyroxine (Levothyroxine) 125 Mcg Tab 125 MCG PO DAILY for Thyroid, #30 TAB 0 Refills Prednisone (Prednisone) 20 Mg Tab 40 MG PO DAILY for Control Inflammation, #25 TAB 0 Refills Take 40mg (2 tabs) daily x7 days, then 20mg (1 tab) daily x7 days, then 10mg (1/2 tab) daily x7days, then stop. Rocky Painting MD Feb 26, 2018 10:57
--- NOTE | 2018-02-26 13:00 | HHI.PR ---
Addendum to Inpatient Note Addendum Reason: Additional Documentation Additional Information Dw . Patient needs ID follow up set up. does not want to follow patient. office does not accept patients insurance. dw employment specialist/program manager to get prior authorization and get patient to see in 1 week. Needs labs and clinically followed up outpatient. Will sign off please call back if any change in clinical condition or questions. Lay Guerra MD Feb 26, 2018 13:00
--- NOTE | 2018-02-26 14:29 | PD.WCN.NOT ---
Neg Pressure Wound Therapy Wound Location Wound Location: Wound VAC dressing change to left lateral chest as ordered M-W-F Wound Description Length: 5.4cm Width: ~2cm Depth: 1.1 cm Wound bed appearance: 100% beefy red granulated tissue. Wound bed is moist. No odor and no active drainage noted. Periwound appearance: Other (Edema from 12 to 6 o'clock improved from previous dressing change) Settings Suction: 125 mmHg, Continuous Intensity: Low Other Information: Windowpaned, Mushroomed Foam type: Black Number of pieces: 2 Additonal Information Patient seen on 7 north for wound VAC dressing change. Patient positioned self on R side for wound VAC dressing change to L lateral chest. Removed wound VAC dressing in place with one piece of black granufoam in place to reveal open wound to L lateral chest. Cleansed wound with normal saline and patted dry.Cavilon skin barrier film spray was applied to periwound. Window paned wound with VAC drape. Applied one small piece of black granufoam to deeper center area in wound. Then applied another larger piece of black granufoam to wound bed.Covered exposed granufoam with VAC drape. Then cut small hole in drape to expose granufoam. Applied mushroom cap of granufoam over exposed granufoam with attached Sensi Trac pad. Wound VAC started and is suctioning at 125 mm/hg. Darling Mahoney [facility] Feb 26, 2018 14:29
[2018-02-26 16:00] VITALS: BP 143/76; PULSE 76; RESP 20; TEMP 98.5; O2SAT 99
[2018-02-26 20:00] VITALS: BP 135/96; PULSE 77; PULSE 94; RESP 20; O2SAT 98
[2018-02-26] MEDS: DOCUSATE CALCIUM 240 MG CAP PO SCH (21:00)
[2018-02-26] MEDS: PANTOPRAZOLE SOD 40 MG DELAYED RELEASE TAB PO SCH (22:15)
[2018-02-27] VITALS: BP 103/51; PULSE 82; PULSE 87; RESP 20; TEMP 98.1; O2SAT 96
[2018-02-27] MEDS: LEVOTHYROXINE SODIUM 112 MCG TAB PO SCH (06:19)
[2018-02-27] MEDS: MORPHINE SULFATE 15 MG CONTROLLED RELEASE TAB PO PRN ×3 (06:19→23:00)
[2018-02-27] MEDS: DIAZEPAM 5 MG TAB PO PRN ×3 (06:19→23:01)
[2018-02-27 08:00] VITALS: BP 111/57; PULSE 88; RESP 18; TEMP 98.2; O2SAT 99
[2018-02-27] MEDS: LINEZOLID 600 MG TAB PO SCH ×2 (08:35→23:01)
[2018-02-27] MEDS: POTASSIUM PHOSPHATE MONOBASIC 500 MG TAB PO SCH ×4 (08:36→23:01)
[2018-02-27] MEDS: FERROUS SULFATE 325 MG (65 MG ELEMENTAL IRON) TAB PO SCH ×2 (08:36→18:15)
[2018-02-27] MEDS: MAGNESIUM OXIDE 400 MG TAB PO SCH (08:36)
[2018-02-27] MEDS: POTASSIUM CHLORIDE 20 MEQ CONTROLLED RELEASE TAB PO SCH ×3 (08:36→18:15)
[2018-02-27] MEDS: CHOLECALCIFEROL (VIT D3) 5000 UNIT CAP PO SCH (08:37)
[2018-02-27] MEDS: SPIRONOLACTONE 25 MG TAB PO SCH (08:37)
[2018-02-27] MEDS: SODIUM CHLORIDE 0.9% FLUSH 10 ML FLUSH IV FLUSH SCH ×2 (08:38→21:00)
[2018-02-27] MEDS: predniSONE 20 MG TAB PO SCH (09:00)
[2018-02-27 12:00] VITALS: BP 114/56; PULSE 85; RESP 16; TEMP 98.5; O2SAT 98
--- NOTE | 2018-02-27 14:59 | HHI.PR ---
Subjective Remarks Follow-up wound, AICD infection. Still awaiting insurance authorization for infectious disease outpatient follow-up. Patient also having difficulty affording Zyvox. Objective Vitals Vital Signs Date Time Temp Pulse Resp B/P (MAP) Pulse Ox O2 Delivery O2 Flow Rate FiO2 02/27/18 12:00 98.5 85 16 114/56 (75) 98 02/27/18 08:00 98.2 88 18 111/57 (75) 99 02/27/18 00:00 82 02/27/18 00:00 98.1 87 20 103/51 (68) 96 02/26/18 20:00 77 02/26/18 20:00 94 20 135/96 (109) 98 02/26/18 16:00 98.5 76 20 143/76 (98) 99 02/26/18 15:35 18 I/O 02/26/18 02/26/18 02/26/18 02/27/18 02/27/18 02/27/18 07:00 15:00 23:00 07:00 15:00 23:00 # Voids 3 8 # Bowel Movements 2 Result Diagram: 02/25/18 1135 02/23/18 0452 Imaging Last Impressions Chest X-Ray 02/15/18 0500 Signed Impressions: Service Date/Time: February 03:49 - CONCLUSION: No acute disease. Clayton Leonard MD Upper Extremity Ultrasound 02/10/18 0000 Signed Impressions: Service Date/Time: Saturday, February 10, 2018 09:58 - CONCLUSION: There is extensive area of occlusive and nonocclusive clot identified within the right upper extremity as noted above.. Tigist Vega MD Soft Tissue Ultrasound 02/07/18 0000 Signed Impressions: Service Date/Time: Wednesday, February 07, 2018 11:15 - CONCLUSION: There is a dominant heterogeneous echotexture fluid collection in the left axilla measuring in excess of 7 cm which has a linear hyperechoic structure coursing through it. There are also some scattered smaller areas of fluid in the anterior chest wall all measuring 1 cm or less. Vic Smith MD Chest CT 02/06/18 0000 Signed Impressions: Service Date/Time: Tuesday, February 06, 2018 10:52 - CONCLUSION: External cardiac pacer/defibrillator with a single lead. The lead courses from the left midaxillary implanted unit and has a 90 bend cephalad at the level of the lower sternum and with an adjacent small apparent fluid collection. Otherwise mildly edematous/indurated soft tissues around the lead. No CT evidence of osteomyelitis. No acute abnormality demonstrated within the thoracic cavity. Brian Arrieta MD Objective Remarks Examined in the presence of the nurse. General: No acute distress. Wearing a LifeVest. Heart: Regular rate and rhythm. No murmur. Lungs: Clear to auscultation bilaterally. No wheezes, rales, or rhonchi. Breathing is nonlabored. Abdomen: Soft, nontender, nondistended. Extremities: No lower extremity edema. Psych: Alert and oriented. Neuro: Normal speech. No focal deficits noted. Skin: Wound VAC in the lateral left axillary region. Procedures removal of ICD and extraction of leads, wd vac placement Urinary Catheter: No Vascular Central Line Catheter: No A/P Problem List: (1) Cellulitis of chest wall ICD Code: L03.313 - Cellulitis of chest wall Status: Acute (2) SHABANA (acute kidney injury) ICD Code: N17.9 - Acute kidney failure, unspecified (3) Brugada syndrome ICD Code: I49.8 - Other specified cardiac arrhythmias Status: Chronic (4) Factitious disorder ICD Code: F68.10 - Factitious disorder, unspecified (5) s/p extrraaction of ICD/ epicardial lead (6) Infection of automatic implantable cardioverter-defibrillator lead ICD Code: T82.7XXA - Infection and inflammatory reaction due to other cardiac and vascular devices, implants and grafts, initial encounter Assessment and Plan 1. 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 Continue wound care. Wound VAC in place. Oral Zyvox. Appreciate infectious disease recommendations. Follow-up as outpatient with CT surgery. Outpatient wound vac arranged. 2. Atypical chest pain: Improved. Likely secondary to infection. Reproducible with palpation, movement. Continue pain control. 3. Brugada syndrome: LifeVest in place. 4. Acute kidney injury superimposed on chronic kidney disease stage III: Likely secondary to dehydration, medications. 5. Hypokalemia: Improved. 6. Lupus: Continue prednisone. 7. Anxiety: Chronic. On Valium. 8. Hypothyroidism: Synthroid decreased to 112 mcg daily. 9. Status post psychiatry evaluation: Possible factitious disorder. Follow-up as outpatient. 10. DVT prophylaxis: SCDs, YAHAIRA cardona. Discussed with Dr. Guerra. Patient will need Zyvox for 2 more weeks. Will check CBC today to evaluate platelet count. If decreasing, may need different antibiotic. Discharge Planning Discharge orders have been entered. The patient is medically clear for discharge. We are waiting for insurance preauthorization of outpatient infectious disease follow-up. Patient needs to be followed by infectious disease while on antibiotics. She has a wound VAC. She also has a LifeVest. Case management assisting with arrangements. Patient also unable to afford Zyvox. Case management looking at options. Rocky Painting MD Feb 27, 2018 14:59
[2018-02-27 16:00] VITALS: BP 111/55; PULSE 85; RESP 16; TEMP 98.6; O2SAT 96
[2018-02-27 20:00] VITALS: BP 132/85; PULSE 84; RESP 18; TEMP 98.6; O2SAT 96
[2018-02-27] MEDS: DOCUSATE CALCIUM 240 MG CAP PO SCH (21:00)
[2018-02-27] MEDS: PANTOPRAZOLE SOD 40 MG DELAYED RELEASE TAB PO SCH (23:00)
[2018-02-28] VITALS: BP 156/74; PULSE 82; RESP 18; TEMP 98.2; O2SAT 100
[2018-02-28] MEDS: DIAZEPAM 5 MG TAB PO PRN ×3 (06:37→22:28)
[2018-02-28] MEDS: LEVOTHYROXINE SODIUM 112 MCG TAB PO SCH (06:37)
[2018-02-28] MEDS: MORPHINE SULFATE 15 MG CONTROLLED RELEASE TAB PO PRN ×3 (06:38→22:28)
[2018-02-28 08:00] VITALS: BP 109/55; PULSE 81; RESP 19; TEMP 97.7; O2SAT 98
[2018-02-28] MEDS: SODIUM CHLORIDE 0.9% FLUSH 10 ML FLUSH IV FLUSH SCH ×2 (10:08→21:00)
[2018-02-28] MEDS: predniSONE 20 MG TAB PO SCH (10:09)
[2018-02-28] MEDS: SPIRONOLACTONE 25 MG TAB PO SCH (10:09)
[2018-02-28] MEDS: FERROUS SULFATE 325 MG (65 MG ELEMENTAL IRON) TAB PO SCH ×2 (10:10→17:24)
[2018-02-28] MEDS: MAGNESIUM OXIDE 400 MG TAB PO SCH (10:10)
[2018-02-28] MEDS: POTASSIUM CHLORIDE 20 MEQ CONTROLLED RELEASE TAB PO SCH ×3 (10:10→17:24)
[2018-02-28] MEDS: LINEZOLID 600 MG TAB PO SCH ×2 (10:11→22:27)
[2018-02-28] MEDS: POTASSIUM PHOSPHATE MONOBASIC 500 MG TAB PO SCH ×4 (10:12→22:27)
[2018-02-28 12:00] VITALS: BP 129/60; PULSE 92; RESP 20; TEMP 97.5; O2SAT 95
[2018-02-28 16:00] VITALS: BP 131/67; PULSE 88; RESP 18; TEMP 98.5; O2SAT 98
--- NOTE | 2018-02-28 16:38 | PD.WCN.NOT ---
Wound Consult Description: Wound VAC change to left lateral chest Communicated with: Patient Haleigh RN Recommendation: Continue wound VAC changes to left lateral chest M-W- as ordered with settings @125mmHg low continuous suction using small granufoam dressing. Additional Information: Patient seen on for wound VAC change to left lateral chest. Neg Pressure Wound Therapy Wound Location Wound Location: Left lateral chest Wound Description Length: 5.3cm Width: 2.5cm Depth: 1.4 cm Wound bed appearance: 100% beefy red granulated tissue. Wound bed is moist. No odor and no active drainage noted. Periwound appearance: Unremarkable Settings Suction: 125 mmHg, Continuous Intensity: Low Other Information: Windowpaned Foam type: Black Number of pieces: 1 Additonal Information Two pieces of black granufoam dressing removed from wound bed. Wound bed is 100 % beefy red and granulated with epithelial tissue noted to wound margins. Periwound is unremarkable. Cavilon used to prep periwound and window pane using VAC drape. One piece of black granufoam was cut in a bevelled style to fit in wound bed so that all of the tissue was touching foam. Sensitrac pad was placed over foam and machine was turned on. Settings are @125mmHg low continuous suction and working properly without leaks noted when leaving patient room. Patient tolerated wound VAC dressing change well. Wound VAC dressing should be changed next on Monday03/02/18. Cande Camarena [facility] Feb 28, 2018 16:38
[2018-02-28 19:50] VITALS: BP 112/61; PULSE 93; RESP 18; TEMP 98; O2SAT 98
[2018-02-28] MEDS: DOCUSATE CALCIUM 240 MG CAP PO SCH (21:00)
[2018-02-28] MEDS: PANTOPRAZOLE SOD 40 MG DELAYED RELEASE TAB PO SCH (22:28)
--- NOTE | 2018-02-28 23:56 | HHI.PR ---
Subjective Remarks patient seen today around 2 PM. She reports that her LifeVest beeped yesterday. We will inform José and cardiology. She denies any worsening of chest discomfort. Objective Vital Signs Date Time Temp Pulse Resp B/P (MAP) Pulse Ox O2 Delivery O2 Flow Rate FiO2 02/28/18 19:50 98.0 93 18 112/61 (78) 98 02/28/18 16:00 98.5 88 18 131/67 (88) 98 02/28/18 12:00 97.5 92 20 129/60 (83) 95 02/28/18 08:00 97.7 81 19 109/55 (73) 98 02/28/18 00:00 98.2 82 18 156/74 (101) 100 I/O 02/28/18 02/28/18 02/28/18 03/01/18 03/01/18 03/01/18 07:00 15:00 23:00 07:00 15:00 23:00 Intake Total 240 ml 120 ml 800 ml Balance 240 ml 120 ml 800 ml Intake Oral 240 ml 120 ml 800 ml # Voids 3 4 # Bowel Movements 0 Result Diagram: 02/25/18 1135 Objective Remarks GENERAL: Patient sitting up on edge of bed. Appears comfortable. SKIN: Warm and dry. HEAD: Normocephalic. EYES: No scleral icterus. No injection or drainage. NECK: Supple, trachea midline. No JVD or lymphadenopathy. CARDIOVASCULAR: Regular rate and rhythm without murmurs, gallops, or rubs. RESPIRATORY: Breath sounds equal bilaterally. No accessory muscle use. LifeVest in place. Wound VAC in place left chest. GASTROINTESTINAL: Abdomen soft, non-tender, nondistended. MUSCULOSKELETAL: No cyanosis, or edema. BACK: Nontender without obvious deformity. No CVA tenderness. 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 Continue wound care. Wound VAC in place. Oral Zyvox. Appreciate infectious disease recommendations. Follow-up as outpatient with CT surgery. Outpatient wound vac arranged. //Atypical chest pain: Improved. Likely secondary to infection. Reproducible with palpation, movement. Continue pain control. //Brugada syndrome: LifeVest in place. = 02/28. Patient reports sleeping from device. Contact [facility] for evaluation. Nursing to notify cardiology. //Acute kidney injury superimposed on chronic kidney disease stage III: Likely secondary to dehydration, medications. //Hypokalemia: Improved. //Lupus: Continue prednisone. //Anxiety: Chronic. On Valium. //Hypothyroidism: Synthroid decreased to 112 mcg daily. //Status post psychiatry evaluation: Possible factitious disorder. Follow-up as outpatient. //DVT prophylaxis: SCDs, YAHAIRA cardona. Discharge Planning Discharge orders have been entered. The patient is medically clear for discharge. We are waiting for insurance preauthorization of outpatient infectious disease follow-up. Patient needs to be followed by infectious disease while on antibiotics. She has a wound VAC. She also has a LifeVest. Case management assisting with arrangements. Patient also unable to afford Zyvox. =Case management looking at options. Ayad Henderson MD Feb 28, 2018 23:56
[2018-03-01] VITALS: BP 112/55; PULSE 86; RESP 21; TEMP 97.9; O2SAT 98
[2018-03-01 04:00] VITALS: BP 101/55; PULSE 74; RESP 21; TEMP 98; O2SAT 100
[2018-03-01] MEDS: DIAZEPAM 5 MG TAB PO PRN ×2 (06:40→14:35)
[2018-03-01] MEDS: MORPHINE SULFATE 15 MG CONTROLLED RELEASE TAB PO PRN ×2 (06:40→14:35)
[2018-03-01] MEDS: LEVOTHYROXINE SODIUM 112 MCG TAB PO SCH (06:40)
[2018-03-01 08:00] VITALS: BP 105/55; PULSE 79; RESP 16; TEMP 98.3; O2SAT 97
[2018-03-01] MEDS: MAGNESIUM OXIDE 400 MG TAB PO SCH (09:42)
[2018-03-01] MEDS: POTASSIUM CHLORIDE 20 MEQ CONTROLLED RELEASE TAB PO SCH ×2 (09:42→13:26)
[2018-03-01] MEDS: LINEZOLID 600 MG TAB PO SCH (09:42)
[2018-03-01] MEDS: FERROUS SULFATE 325 MG (65 MG ELEMENTAL IRON) TAB PO SCH (09:42)
[2018-03-01] MEDS: SPIRONOLACTONE 25 MG TAB PO SCH (09:42)
[2018-03-01] MEDS: POTASSIUM PHOSPHATE MONOBASIC 500 MG TAB PO SCH ×2 (09:42→13:27)
[2018-03-01] MEDS: predniSONE 20 MG TAB PO SCH (09:42)
[2018-03-01] MEDS: SODIUM CHLORIDE 0.9% FLUSH 10 ML FLUSH IV FLUSH SCH (09:43)
[2018-03-01 10:26] LABS: BASOPHIL # 0.1 TH/MM3 (0-0.2); EOSINOPHIL # 0.3 TH/MM3 (0-0.4); HEMATOCRIT 34.8 % (35.0-46.0); HEMOGLOBIN 11.3 GM/DL (11.6-15.3); LYMPH % 36.3 % (9.0-44.0); LYMPHOCYTE # 2.1 TH/MM3 (1.0-4.8); MEAN CELL VOLUME 86.5 FL (80.0-100.0); MEAN CORPUSCULAR HEMOGLOBIN 28.1 PG (27.0-34.0); MEAN CORPUSCULAR HGB CONC 32.5 % (32.0-36.0); MEAN PLATELET VOLUME 7.5 FL (7.0-11.0); MONO % 7.2 % (0.0-8.0); MONOCYTE # 0.4 TH/MM3 (0-0.9); NEUT % 50.5 % (16.0-70.0); PLATELET COUNT 152 TH/MM3 (150-450); RED BLOOD COUNT 4.02 MIL/MM3 (4.00-5.30); RED CELL DISTRIBUTION WIDTH 15.8 % (11.6-17.2); WHITE BLOOD COUNT 5.9 TH/MM3 (4.0-11.0)
[2018-03-01 10:46] LABS: CALCIUM 8.8 MG/DL (8.5-10.1); CREATININE 1.44 MG/DL (0.50-1.00)
[2018-03-01 12:00] VITALS: BP 160/79; PULSE 94; RESP 16; TEMP 98; O2SAT 97
--- NOTE | 2018-03-01 23:15 | HHI.PR ---
Subjective Remarks Patient says she is feeling well. Denies any chest pain or shortness of breath. Objective Vital Signs Date Time Temp Pulse Resp B/P (MAP) Pulse Ox O2 Delivery O2 Flow Rate FiO2 03/01/18 12:00 98.0 94 16 160/79 (106) 97 03/01/18 08:00 98.3 79 16 105/55 (72) 97 03/01/18 04:00 98.0 74 21 101/55 (70) 100 03/01/18 00:00 97.9 86 21 112/55 (74) 98 Result Diagram: 03/01/18 1008 03/01/18 1008 Objective Remarks GENERAL: Patient sitting up on edge of bed. Appears comfortable.no change on exam from yesterday. A/P Assessment and Plan ========03/01/18. ======= Discussed with case management and nursing. Patient has been approved for infectious disease follow-up, as well as Zyvox. Appreciate case management assistance. Jewel reports that alert from yesterday was artifacts. I have instructed patient on proper use of LifeVest. If she is awake and feeling all right she will press the button if it alarms. 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 Continue wound care. Wound VAC in place. Oral Zyvox. Appreciate infectious disease recommendations. Follow-up as outpatient with CT surgery. Outpatient wound vac arranged. //Atypical chest pain: Improved. Likely secondary to infection. Reproducible with palpation, movement. Continue pain control. //Brugada syndrome: LifeVest in place. = 02/28. Patient reports sleeping from device. Contact Catherine for evaluation. Nursing to notify cardiology. //Acute kidney injury superimposed on chronic kidney disease stage III: Likely secondary to dehydration, medications. //Hypokalemia: Improved. //Lupus: Continue prednisone. //Anxiety: Chronic. On Valium. //Hypothyroidism: Synthroid decreased to 112 mcg daily. //Status post psychiatry evaluation: Possible factitious disorder. Follow-up as outpatient. //DVT prophylaxis: SCDs, YAHAIRA cardona. Discharge Planning Discharge orders have been entered. The patient is medically clear for discharge. We are waiting for insurance preauthorization of outpatient infectious disease follow-up. Patient needs to be followed by infectious disease while on antibiotics. She has a wound VAC. She also has a LifeVest. Case management assisting with arrangements. Patient also unable to afford Zyvox. =Case management looking at options. Ayad Henderson MD Mar 01, 2018 23:15
== END 2018-03-01 15:57 | disposition home health service (06) | DRG 261 ==
LOC: NED 19:35 → NEDA 02-06 02:40 → NEDH 02-06 06:52 → NEPHCDU 02-06 16:59 → OBSVTOIN 02-07 11:06 → HCIS 02-07 12:23 → N07B 02-16 18:36
PROVIDERS: ADMIT Internal Medicine; ATTEND Internal Medicine
PROC: 02PA3MZ Removal of Cardiac Lead from Heart, Percutaneous Approach (ICD-10-PCS; 2018-02-14)
PROC: 0JPT0PZ Removal of Cardiac Rhythm Related Device from Trunk Subcutaneous Tissue and Fascia, Open Approach (ICD-10-PCS; principal; 2018-02-14 13:04)
DX: T82.7XXA Infection and inflammatory reaction due to other cardiac and vascular devices, implants and grafts, initial encounter (principal); L03.313 Cellulitis of chest wall; M32.9 Systemic lupus erythematosus, unspecified; N17.9 Acute kidney failure, unspecified; N18.3 Chronic kidney disease, stage 3 (moderate); K31.84 Gastroparesis; K50.90 Crohn's disease, unspecified, without complications; L02.213 Cutaneous abscess of chest wall; F68.10 Factitious disorder imposed on self, unspecified; I12.9 Hypertensive chronic kidney disease with stage 1 through stage 4 chronic kidney disease, or unspecified chronic kidney disease; G89.29 Other chronic pain; Y83.1 Surgical operation with implant of artificial internal device as the cause of abnormal reaction of the patient, or of later complication, without mention of misadventure at the time of the procedure; I49.8 Other specified cardiac arrhythmias; E86.0 Dehydration; B95.62 Methicillin resistant Staphylococcus aureus infection as the cause of diseases classified elsewhere; E87.6 Hypokalemia; E03.9 Hypothyroidism, unspecified; F31.9 Bipolar disorder, unspecified; K21.9 Gastro-esophageal reflux disease without esophagitis; Z95.810 Presence of automatic (implantable) cardiac defibrillator; Z86.14 Personal history of Methicillin resistant Staphylococcus aureus infection; Z79.52 Long term (current) use of systemic steroids
CPT/HCPCS: 71045; 71046; 71260; 76937; 76999; 80048; 80053; 80202; 81001; 82565; 83036; 83605; 83735; 84100; 84439; 84443; 85025; 85610; 85730; 86077; 86140; 86403; 86850; 86870; 86900; 86901; 86902; 86920; 86922; 87015; 87040; 87070; 87102; 87116; 87147; 87186; 87205; 87206; 93005; 93306; 93971; 94150; G8987-GP; G8988-GP; J0131; J0690; J1170; J2060; J2175; J2250; J2270; J2405; J3010; J3370; J3410; J3480; J7030; J7050; J7120; J7512; Q9967

== ENCOUNTER 2018-03-11 00:07 | Observation (INO) | payer OTHER ==
[2018-03-11 01:38] LABS: ALBUMIN 3.4 GM/DL (3.4-5.0); ALKALINE PHOSPHATASE 48 U/L (45-117); ALT (GPT) 12 U/L (10-53); ANION GAP 12 MEQ/L (5-15); AST (GOT) 29 U/L (15-37); BLOOD UREA NITROGEN 28 MG/DL (7-18); CALCIUM 7.9 MG/DL (8.5-10.1); CHLORIDE 109 MEQ/L (98-107); CREATININE 2.49 MG/DL (0.50-1.00); GLOMERULAR FILTRATION RATE 21 ML/MIN (>89); GLUCOSE,RANDOM 104 MG/DL (74-106); SODIUM (NA) 142 MEQ/L (136-145); TOTAL BILIRUBIN ADULT 0.1 MG/DL (0.2-1.0); TOTAL PROTEIN 6.7 GM/DL (6.4-8.2); TROPONIN I LESS THAN 0.02 NG/ML (0.02-0.05)
[2018-03-11 01:42] LABS: CREATINE KINASE 95 U/L (26-192); POTASSIUM 4.3 MEQ/L (3.5-5.1)
[2018-03-11 01:58] LABS: AUTOMATED NEUTROPHIL # 5.2 TH/MM3 (1.8-7.7); BASOPHIL # 0.1 TH/MM3 (0-0.2); BASOPHIL % 0.8 % (0.0-2.0); EOSINOPHIL # 0.2 TH/MM3 (0-0.4); EOSINOPHIL % 2.6 % (0.0-4.0); HEMATOCRIT 32.9 % (35.0-46.0); HEMO FLAGS DIFF FINAL; HEMOGLOBIN 10.9 GM/DL (11.6-15.3); LYMPH % 17.7 % (9.0-44.0); LYMPHOCYTE # 1.3 TH/MM3 (1.0-4.8); MEAN CELL VOLUME 84.5 FL (80.0-100.0); MEAN CORPUSCULAR HEMOGLOBIN 28.1 PG (27.0-34.0); MEAN CORPUSCULAR HGB CONC 33.3 % (32.0-36.0); MEAN PLATELET VOLUME 7.2 FL (7.0-11.0); MONOCYTE # 0.4 TH/MM3 (0-0.9); NEUT % 72.9 % (16.0-70.0); PLATELET COUNT 127 TH/MM3 (150-450); RED BLOOD COUNT 3.89 MIL/MM3 (4.00-5.30); RED CELL DISTRIBUTION WIDTH 14.8 % (11.6-17.2); WHITE BLOOD COUNT 7.2 TH/MM3 (4.0-11.0)
[2018-03-11 02:09] LABS: PROTHROMBIN TIME - PATIENT 10.3 SEC (9.8-11.6)
[2018-03-11 02:10] LABS: APTT (PATIENT) 27.8 SEC (24.3-30.1)
[2018-03-11 02:22] LABS: B-TYPE NATRIURETIC PEPTIDE 137 PG/ML (0-100)
[2018-03-11] MEDS ORDERED: MAGNESIUM HYDROXIDE SUSP 30 ML CUP PO (02:30)
[2018-03-11] MEDS ORDERED: SODIUM CHLORIDE 0.9% FLUSH 10 ML FLUSH IV FLUSH (02:30)
[2018-03-11] MEDS ORDERED: SENNOSIDES 8.6 MG TAB PO (02:30)
[2018-03-11] MEDS ORDERED: LACTULOSE SYRUP 20 GM/30 ML CUP PO (02:30)
[2018-03-11] MEDS ORDERED: ACETAMINOPHEN 325 MG TAB PO (02:30)
[2018-03-11] MEDS ORDERED: BISACODYL 10 MG SUPP RECTAL (02:30)
[2018-03-11] MEDS: POTASSIUM PHOSPHATE MONOBASIC 500 MG TAB PO (02:32)
[2018-03-11] MEDS: MORPHINE SULFATE 15 MG TAB PO (02:32)
[2018-03-11] MEDS: DIAZEPAM 10 MG TAB PO ×3 (02:33→18:23)
[2018-03-11] MEDS: LINEZOLID 600 MG TAB PO ×3 (02:33→20:11)
[2018-03-11] MEDS: LEVOTHYROXINE SODIUM 112 MCG TAB PO (06:02)
[2018-03-11] MEDS: DOCUSATE SODIUM 50 MG/SENNA 8.6 MG TAB PO ×2 (09:00→20:09)
[2018-03-11] MEDS: MAGNESIUM OXIDE 400 MG TAB PO (10:19)
[2018-03-11] MEDS: FERROUS SULFATE 325 MG (65 MG ELEMENTAL IRON) TAB PO ×2 (10:19→18:23)
[2018-03-11] MEDS: POTASSIUM CHLORIDE 20 MEQ CONTROLLED RELEASE TAB PO ×3 (10:19→18:23)
[2018-03-11] MEDS: MORPHINE SULFATE 15 MG CONTROLLED RELEASE TAB PO ×2 (10:19→18:23)
[2018-03-11] MEDS: SPIRONOLACTONE 25 MG TAB PO (10:19)
[2018-03-11] MEDS: SODIUM CHLORIDE 0.9% FLUSH 10 ML FLUSH IV FLUSH ×2 (10:20→20:09)
[2018-03-11] MEDS: predniSONE 10 MG TAB PO (10:20)
[2018-03-11 10:37] LABS: TROPONIN I LESS THAN 0.02 NG/ML (0.02-0.05)
[2018-03-11] MEDS: SODIUM CHLORID 0.9% 500 ML INJ 500 ML IV (13:11)
[2018-03-11] MEDS: ONDANSETRON HCL 4 MG/2 ML VIAL IVP ×2 (15:03→20:09)
[2018-03-11 16:03] LABS: TROPONIN I LESS THAN 0.02 NG/ML (0.02-0.05)
[2018-03-11] MEDS: PANTOPRAZOLE SOD 40 MG DELAYED RELEASE TAB PO (20:11)
[2018-03-12] MEDS: MORPHINE SULFATE 15 MG CONTROLLED RELEASE TAB PO ×3 (04:21→21:20)
[2018-03-12] MEDS: DIAZEPAM 10 MG TAB PO ×3 (04:21→21:20)
[2018-03-12 05:43] LABS: AUTOMATED NEUTROPHIL # 3.1 TH/MM3 (1.8-7.7); BASOPHIL % 0.8 % (0.0-2.0); EOSINOPHIL # 0.3 TH/MM3 (0-0.4); EOSINOPHIL % 5.8 % (0.0-4.0); HEMATOCRIT 32.5 % (35.0-46.0); HEMO FLAGS DIFF FINAL; HEMOGLOBIN 10.9 GM/DL (11.6-15.3); LYMPH % 30.9 % (9.0-44.0); LYMPHOCYTE # 1.8 TH/MM3 (1.0-4.8); MEAN CELL VOLUME 85.7 FL (80.0-100.0); MEAN CORPUSCULAR HEMOGLOBIN 28.7 PG (27.0-34.0); MEAN CORPUSCULAR HGB CONC 33.5 % (32.0-36.0); MEAN PLATELET VOLUME 7.5 FL (7.0-11.0); MONO % 7.6 % (0.0-8.0); MONOCYTE # 0.4 TH/MM3 (0-0.9); NEUT % 54.9 % (16.0-70.0); PLATELET COUNT 124 TH/MM3 (150-450); RED CELL DISTRIBUTION WIDTH 15.1 % (11.6-17.2); WHITE BLOOD COUNT 5.7 TH/MM3 (4.0-11.0)
[2018-03-12] MEDS: LEVOTHYROXINE SODIUM 112 MCG TAB PO (05:58)
[2018-03-12 06:06] LABS: ALBUMIN 3.1 GM/DL (3.4-5.0); ANION GAP 7 MEQ/L (5-15); AST (GOT) 12 U/L (15-37); BICARBONATE 23.7 MEQ/L (21.0-32.0); BLOOD UREA NITROGEN 27 MG/DL (7-18); CALCIUM 8.3 MG/DL (8.5-10.1); CHLORIDE 113 MEQ/L (98-107); CREATININE 2.12 MG/DL (0.50-1.00); GLOMERULAR FILTRATION RATE 26 ML/MIN (>89); GLUCOSE,RANDOM 93 MG/DL (74-106); POTASSIUM 3.6 MEQ/L (3.5-5.1); SODIUM (NA) 144 MEQ/L (136-145)
[2018-03-12 06:11] LABS: ALKALINE PHOSPHATASE 46 U/L (45-117); ALT (GPT) 12 U/L (10-53); TOTAL BILIRUBIN ADULT 0.2 MG/DL (0.2-1.0); TOTAL PROTEIN 6.5 GM/DL (6.4-8.2)
[2018-03-12] MEDS: predniSONE 10 MG TAB PO (08:28)
[2018-03-12] MEDS: POTASSIUM CHLORIDE 20 MEQ CONTROLLED RELEASE TAB PO ×3 (08:29→18:03)
[2018-03-12] MEDS: LINEZOLID 600 MG TAB PO ×2 (08:30→21:00)
[2018-03-12] MEDS: MAGNESIUM OXIDE 400 MG TAB PO (08:31)
[2018-03-12] MEDS: FERROUS SULFATE 325 MG (65 MG ELEMENTAL IRON) TAB PO ×2 (08:32→18:03)
[2018-03-12] MEDS: SPIRONOLACTONE 25 MG TAB PO (08:32)
[2018-03-12] MEDS: SODIUM CHLORIDE 0.9% FLUSH 10 ML FLUSH IV FLUSH ×2 (08:33→21:20)
[2018-03-12] MEDS: DOCUSATE SODIUM 50 MG/SENNA 8.6 MG TAB PO ×2 (08:33→21:00)
[2018-03-12] MEDS: SODIUM CHLORID 0.9% 500 ML INJ 500 ML IV (12:30)
[2018-03-12] MEDS: ONDANSETRON HCL 4 MG/2 ML VIAL IVP (18:03)
[2018-03-12 20:27] LABS: ANION GAP 8 MEQ/L (5-15); BICARBONATE 24.7 MEQ/L (21.0-32.0); BLOOD UREA NITROGEN 24 MG/DL (7-18); CALCIUM 8.2 MG/DL (8.5-10.1); CHLORIDE 111 MEQ/L (98-107); CREATININE 1.85 MG/DL (0.50-1.00); GLOMERULAR FILTRATION RATE 30 ML/MIN (>89); GLUCOSE,RANDOM 114 MG/DL (74-106); POTASSIUM 3.1 MEQ/L (3.5-5.1); SODIUM (NA) 144 MEQ/L (136-145)
[2018-03-12] MEDS: PANTOPRAZOLE SOD 40 MG DELAYED RELEASE TAB PO (21:20)
[2018-03-13] MEDS: LEVOTHYROXINE SODIUM 112 MCG TAB PO (05:37)
[2018-03-13] MEDS: MORPHINE SULFATE 15 MG CONTROLLED RELEASE TAB PO ×3 (05:37→21:48)
[2018-03-13] MEDS: DIAZEPAM 10 MG TAB PO ×3 (05:37→21:47)
[2018-03-13 05:56] LABS: ANION GAP 9 MEQ/L (5-15); BICARBONATE 25.3 MEQ/L (21.0-32.0); BLOOD UREA NITROGEN 25 MG/DL (7-18); CALCIUM 8.7 MG/DL (8.5-10.1); CHLORIDE 111 MEQ/L (98-107); CREATININE 1.75 MG/DL (0.50-1.00); GLOMERULAR FILTRATION RATE 32 ML/MIN (>89); GLUCOSE,RANDOM 107 MG/DL (74-106); POTASSIUM 3.1 MEQ/L (3.5-5.1); SODIUM (NA) 145 MEQ/L (136-145)
[2018-03-13] MEDS: DOCUSATE SODIUM 50 MG/SENNA 8.6 MG TAB PO ×2 (09:00→21:00)
[2018-03-13] MEDS: POTASSIUM CHLORIDE 10 MEQ CONTROLLED RELEASE TAB PO (09:14)
[2018-03-13] MEDS: LINEZOLID 600 MG TAB PO ×2 (09:15→21:00)
[2018-03-13] MEDS: MAGNESIUM OXIDE 400 MG TAB PO (09:16)
[2018-03-13] MEDS: predniSONE 10 MG TAB PO (09:16)
[2018-03-13] MEDS: SPIRONOLACTONE 25 MG TAB PO (09:16)
[2018-03-13] MEDS: FERROUS SULFATE 325 MG (65 MG ELEMENTAL IRON) TAB PO ×2 (09:16→18:07)
[2018-03-13] MEDS: SODIUM CHLORIDE 0.9% FLUSH 10 ML FLUSH IV FLUSH ×2 (09:17→21:48)
[2018-03-13] MEDS: POTASSIUM CHLORIDE 20 MEQ CONTROLLED RELEASE TAB PO ×3 (09:19→18:07)
[2018-03-13] MEDS: ONDANSETRON HCL 4 MG/2 ML VIAL IVP ×2 (10:44→18:07)
[2018-03-13] MEDS: PANTOPRAZOLE SOD 40 MG DELAYED RELEASE TAB PO (21:47)
[2018-03-14] MEDS: LEVOTHYROXINE SODIUM 112 MCG TAB PO (06:06)
[2018-03-14] MEDS: DIAZEPAM 10 MG TAB PO ×2 (06:21→14:41)
[2018-03-14] MEDS: MORPHINE SULFATE 15 MG CONTROLLED RELEASE TAB PO ×2 (06:21→14:42)
[2018-03-14 07:26] LABS: ANION GAP 6 MEQ/L (5-15); BICARBONATE 31.8 MEQ/L (21.0-32.0); BLOOD UREA NITROGEN 25 MG/DL (7-18); CALCIUM 8.7 MG/DL (8.5-10.1); CHLORIDE 105 MEQ/L (98-107); CREATININE 1.87 MG/DL (0.50-1.00); GLOMERULAR FILTRATION RATE 30 ML/MIN (>89); GLUCOSE,RANDOM 96 MG/DL (74-106); POTASSIUM 3.6 MEQ/L (3.5-5.1); SODIUM (NA) 143 MEQ/L (136-145)
[2018-03-14] MEDS: LINEZOLID 600 MG TAB PO (09:00)
[2018-03-14] MEDS: SODIUM CHLORIDE 0.9% FLUSH 10 ML FLUSH IV FLUSH (09:00)
[2018-03-14] MEDS: DOCUSATE SODIUM 50 MG/SENNA 8.6 MG TAB PO (09:00)
[2018-03-14] MEDS: FERROUS SULFATE 325 MG (65 MG ELEMENTAL IRON) TAB PO (09:22)
[2018-03-14] MEDS: MAGNESIUM OXIDE 400 MG TAB PO (09:22)
[2018-03-14] MEDS: SPIRONOLACTONE 25 MG TAB PO (09:23)
[2018-03-14] MEDS: predniSONE 10 MG TAB PO (09:23)
[2018-03-14] MEDS: POTASSIUM CHLORIDE 20 MEQ CONTROLLED RELEASE TAB PO ×2 (09:23→12:50)
== END 2018-03-14 17:44 | disposition home or self-care (01) ==
LOC: NEPE 00:07 → NEDA 02:18 → NEPFCDU 03:23
DX: I49.9 Cardiac arrhythmia, unspecified (principal); R07.89 Other chest pain; L03.313 Cellulitis of chest wall; I12.9 Hypertensive chronic kidney disease with stage 1 through stage 4 chronic kidney disease, or unspecified chronic kidney disease; N18.3 Chronic kidney disease, stage 3 (moderate); E03.9 Hypothyroidism, unspecified; E87.6 Hypokalemia; M32.9 Systemic lupus erythematosus, unspecified; K21.9 Gastro-esophageal reflux disease without esophagitis; G40.909 Epilepsy, unspecified, not intractable, without status epilepticus; K50.90 Crohn's disease, unspecified, without complications; F31.9 Bipolar disorder, unspecified; F43.10 Post-traumatic stress disorder, unspecified; Z95.810 Presence of automatic (implantable) cardiac defibrillator
CPT/HCPCS: 71045; 76937; 80048; 80053; 82550; 83880; 84484; 85025; 85610; 85730; 93005; 96361; 96374; 96376; 99285-25

== ENCOUNTER 2018-04-08 15:37 | Inpatient (IN) | payer OTHER ==
[~2018-04-08] VITALS: Ht 175.3 cm; Wt 68.0 kg
[~2018-04-08 15:37] MED LIST changes: +DEFIB EXTERNAL; -LEVO125T4 PO; +MORP1TAB24 PO; -MUPI2%T TOPICAL; +PRED10 PO; -PRED20 PO; +SYNT112T PO; +ZYVO600T PO
[2018-04-08] MEDS ORDERED: SODIUM CHLOR 0.9% 1000 ML INJ 1,000 ML IV ONE (15:46)
--- NOTE | 2018-04-08 15:48 | PD ---
HPI Chief Complaint: weakness Time Seen by Provider: 15:46 Travel History International Travel<30 days: No Contact w/Intl Traveler<30days: No Traveled to known affect area: No History of Present Illness HPI 42-year-old female with PMH of lupus, Brugada syndrome, AICD implant removal secondary to infection presents the ED via EMS for evaluation of dizziness, near syncope, foul smell from her left axillary wound. She states that she was " supposed to have silver dressing" but that "wound care hasn't been coming for two weeks." She denies fevers, chills. Endorses nausea. No vomiting. She denies chest pain, palpitations, shortness of breath, abdominal pain. She endorses history of hypokalemia and kidney disease. She states that she has not taken pain medications or Valium for 3 days because she was worried about the dizziness. PFSH Past Medical History Arthritis: No Asthma: No Atrial Fibrillation: No Autoimmune Disease: Yes (LUPUS ) Blood Disorders: No Bipolar Disorder: Yes Anxiety: Yes Depression: No Heart Rhythm Problems: No Cancer: Yes Cardiac Catheterization: No Cardiovascular Problems: Yes (pacemaker, brugada syndrome, HTN) High Cholesterol: No Chemotherapy: No Chest Pain: No Congestive Heart Failure: No COPD: No Cerebrovascular Accident: No Diabetes: No Diminished Hearing: No Endocrine: No Gastrointestinal Disorders: Yes (GASTROPARESIS, esophagitis) GERD: Yes Genitourinary: Yes (RECURRENT UTI'S, NEPHRITIS, kidney disease) Headaches: Yes Hiatal Hernia: No Heparin Induced Thrombocytopen: No Hypertension: No Immune Disorder: Yes (CROHN'S, SLE) Implanted Vascular Access Dvce: Yes (RIGHT SUBCLAVIAN PORT VAD) Kidney Stones: Yes Musculoskeletal: No Neurologic: Yes (EPILEPSY) Psychiatric: No Reproductive: No Respiratory: No Immunizations Current: Yes Migraines: Yes Myocardial Infarction: No Pneumonia: Yes Radiation Therapy: No Renal Failure: Yes Seizures: Yes (juvenile epilepsy) Sickle Cell Disease: No Sleep Apnea: No Thyroid Disease: Yes (HYPOTHYROIDISM) Ulcer: Yes PNEUMOCCOCAL Vaccine (Year): 3 : 2 Para: 1 Miscarriage: 1 : 0 Ectopic : Yes (AT 17 YEARS OF AGE) Ovarian Cysts: Yes Past Surgical History Abdominal Surgery: Yes (multiple Laps) AICD: Yes (life pack) Appendectomy: Yes Arteriovenous Shunt: No Body Medical Devices: RIGHT SUBCLAVIAN PORT VAD, DEFIB/PACER PLACED X 3 WEEKS AGO Cardiac Surgery: Yes (AICD ) Coronary Artery Bypass Graft: No Ear Surgery: No Endocrine Surgery: Yes Eye Surgery: No Genitourinary Surgery: Yes (Interstitial cystitis) Gynecologic Surgery: Yes Hysterectomy: Yes (partial) Insulin Pump: No Joint Replacement: No Neurologic Surgery: No Oral Surgery: Yes (Removal of abscess) Pacemaker: No Thoracic Surgery: No Other Surgery: Yes (OVARIAN CYST/TUMOR REMOVED) Social History Alcohol Use: No Tobacco Use: No Substance Use: No Allergies-Medications (Allergen,Severity, Reaction): Coded Allergies: Fish Containing Products (Verified Allergy, Severe, SWELLING IN THROAT, SOB, 04/08/18) cephalexin (Verified Allergy, Severe, RASH,SWELLING, 04/08/18) ketorolac (Verified Allergy, Severe, RASH, 04/08/18) penicillin G (Verified Allergy, Severe, RASH,SWELLING, 04/08/18) prochlorperazine (Verified Allergy, Mild, DYSTONIC REACTION, 04/08/18) promethazine (Verified Allergy, Mild, DYSTONIC REACTION, 04/08/18) gabapentin (Verified Adverse Reaction, Severe, SEIZURES, 04/08/18) Reported Meds & Prescriptions Reported Meds & Active Scripts Active Valium (Diazepam) 10 Mg Tab 10 Mg PO TID PRN K-Phos (Potassium Phosphate Monobasic) 500 Mg Tab 500 Mg PO PCHS Magnesium Oxide 400 Mg Tab 400 Mg PO DAILY Pantoprazole (Pantoprazole Sodium) 40 Mg Tab 40 Mg PO HS Spironolactone 25 Mg Tab 25 Mg PO DAILY Potassium Chloride ER (Potassium Chloride) 20 Meq Tab 40 Meq PO TID Ferrous Sulfate 325 Mg (65 Mg Iron) Tablet 325 Mg PO BIDPC Vitamin D3 (Cholecalciferol) 10,000 Unit Cap 20,000 Units PO Q3D @ HS Synthroid (Levothyroxine Sodium) 112 Mcg Tab 112 Mcg PO DAILY@0600 Prednisone 10 Mg Tab 30 Mg PO DAILY Defibrillator Jacket (Device) 1 Ea Device Ea EXTERNAL ONCE Energy = 150 Joules; VT Threshold = 150 BPM; VF Threshold = 200 BPM Use up to 90 days only pt of Dr Cervantes Review of Systems Except as stated in HPI: all other systems reviewed are Neg Physical Exam Narrative GENERAL: Well-nourished, well-developed chronically ill-appearing white female no acute distress. Wearing a LifeVest. SKIN: Focused skin assessment warm/dry. 2-3 cm surgical incision in the left axilla. Mildly excoriated. Keloid scar. Tender in the posterior aspect. No induration or fluctuance noted. HEAD: Normocephalic. Atraumatic. EYES: No scleral icterus. No injection or drainage. NECK: Supple, trachea midline. No JVD or lymphadenopathy. CARDIOVASCULAR: Regular rate and rhythm without murmurs, gallops, or rubs. RESPIRATORY: Breath sounds clear and equal bilaterally. No accessory muscle use. GASTROINTESTINAL: Abdomen soft, non-tender, nondistended. Active bowel sounds. MUSCULOSKELETAL: No cyanosis, or edema. Moves extremities spontaneously. NEUROLOGICAL: Awake and alert. Cranial nerves II through XII intact. Motor and sensory grossly within normal limits. Five out of 5 muscle strength in all muscle groups. Normal speech. BACK: Nontender without obvious deformity. No CVA tenderness. Data Data Last Documented VS Vital Signs Date Time Temp Pulse Resp B/P (MAP) Pulse Ox O2 Delivery O2 Flow Rate FiO2 04/08/18 16:51 16 99 Room Air 04/08/18 16:29 99.8 80 Orders Orders Electrocardiogram (04/08/18 15:46) Complete Blood Count With Diff (04/08/18 15:46) Comprehensive Metabolic Panel (04/08/18 15:46) Magnesium (Mg) (04/08/18 15:46) Ckmb (Isoenzyme) Profile (04/08/18 15:46) Troponin I (04/08/18 15:46) Act Partial Throm Time (Ptt) (04/08/18 15:46) Prothrombin Time / Inr (Pt) (04/08/18 15:46) Urinalysis - C+S If Indicated (04/08/18 15:46) Ecg Monitoring (04/08/18 15:46) Iv Access Insert/Monitor (04/08/18 15:46) Oximetry (04/08/18 15:46) Sodium Chloride 0.9% Flush (Ns Flush) (04/08/18 16:00) Sodium Chlor 0.9% 1000 Ml Inj (Ns 1000 M (04/08/18 15:46) Acetaminophen (Tylenol) (04/08/18 17:15) Potassium Chloride (Kcl) (04/08/18 17:30) Potassium Chlor 20 Meq Premix (Kcl 20 Me (04/08/18 17:30) Sodium Chlorid 0.9% 500 Ml Inj (Ns 500 M (04/08/18 17:45) Sodium Chlorid 0.9% 500 Ml Inj (Ns 500 M (04/08/18 18:00) Morphine Inj (Morphine Inj) (04/08/18 18:00) Ed Poc Ultrasound (04/08/18 ) Diet Heart Healthy (04/08/18 Dinner) Vital Signs (Adult) DOMINGO.Q4H (04/08/18 18:38) Potassium, Serum (K) (04/08/18 20:00) Admit Order (Ed Use Only) (04/08/18 18:39) Labs Laboratory Tests Test 04/08/18 16:30 04/08/18 16:40 White Blood Count 9.6 TH/MM3 Red Blood Count 4.49 MIL/MM3 Hemoglobin 12.9 GM/DL Hematocrit 37.9 % Mean Corpuscular Volume 84.4 FL Mean Corpuscular Hemoglobin 28.6 PG Mean Corpuscular Hemoglobin Concent 33.9 % Red Cell Distribution Width 14.3 % Platelet Count 154 TH/MM3 Mean Platelet Volume 8.3 FL Neutrophils (%) (Auto) 74.9 % Lymphocytes (%) (Auto) 14.0 % Monocytes (%) (Auto) 6.5 % Eosinophils (%) (Auto) 3.7 % Basophils (%) (Auto) 0.9 % Neutrophils # (Auto) 7.2 TH/MM3 Lymphocytes # (Auto) 1.3 TH/MM3 Monocytes # (Auto) 0.6 TH/MM3 Eosinophils # (Auto) 0.4 TH/MM3 Basophils # (Auto) 0.1 TH/MM3 CBC Comment DIFF FINAL Differential Comment Prothrombin Time 11.0 SEC Prothromb Time International Ratio 1.1 RATIO Activated Partial Thromboplast Time 21.4 SEC Blood Urea Nitrogen 36 MG/DL Creatinine 2.53 MG/DL Random Glucose 104 MG/DL Total Protein 7.7 GM/DL Albumin 4.3 GM/DL Calcium Level 9.1 MG/DL Magnesium Level 2.1 MG/DL Alkaline Phosphatase 56 U/L Aspartate Amino Transf (AST/SGOT) 17 U/L Alanine Aminotransferase (ALT/SGPT) 16 U/L Total Bilirubin 0.3 MG/DL Sodium Level 138 MEQ/L Potassium Level 2.4 MEQ/L Chloride Level 103 MEQ/L Carbon Dioxide Level 21.5 MEQ/L Anion Gap 14 MEQ/L Estimat Glomerular Filtration Rate 21 ML/MIN Total Creatine Kinase 61 U/L Troponin I LESS THAN 0.02 NG/ML Urine Color YELLOW Urine Turbidity HAZY Urine pH 6.0 Urine Specific [place] 1.017 Urine Protein TRACE mg/dL Urine Glucose (UA) NEG mg/dL Urine Ketones NEG mg/dL Urine Occult Blood NEG Urine Nitrite NEG Urine Bilirubin NEG Urine Urobilinogen LESS THAN 2.0 MG/DL Urine Leukocyte Esterase NEG Urine RBC LESS THAN 1 /hpf Urine WBC 1 /hpf Urine Squamous Epithelial Cells 7 /hpf Urine Hyaline Casts 13 /lpf Urine Mucus FEW /lpf Microscopic Urinalysis Comment CULT NOT INDICATED MDM Medical Decision Making Medical Screen Exam Complete: Yes Emergency Medical Condition: Yes Differential Diagnosis Metabolic derangement versus wound infection versus arrhythmia versus malingering versus other Narrative Course 42-year-old female with PMH of lupus, Brugada syndrome, AICD implant removal secondary to infection presents the ED via EMS for evaluation of dizziness, near syncope, foul smell from her left axillary wound. Vitals reviewed. On exam this is a nontoxic-appearing white female in no acute distress. No focal neuro deficits. There is a well-healed incision in the left axilla. Keloid scar noted. Some tenderness posteriorly. No signs of cellulitis or abscess. [id number] ultrasound reveals no fluid pocket. IV was established. Patient was administered 1 L normal saline, 500 mg Tylenol. EKG: CBC: WBC 9.6. Hemoglobin 12.9. Coags: INR 1.1. Chemistry: Potassium 2.4. BUN 36. Creatinine 2.53. Cardiac enzymes negative 1. Patient was administered 40 mEq KCl p.o. and 20 mg IV. I spoke with Dr. Weaver who agrees to accept the patient the medicine service. Please see medicine notes for disposition. Procedures Procedure Narrative US: Left axillary wound. No evidence of drainable abscess. Some induration in the soft tissues. Luisa Romeo Apr 08, 2018 15:48
[2018-04-08 15:52] VITALS: BP 118/79; PULSE 98; RESP 18; TEMP 99.8; O2SAT 97
[2018-04-08] MEDS ORDERED: SODIUM CHLORIDE 0.9% FLUSH 10 ML FLUSH IVF PRN (16:00)
[2018-04-08 16:29] VITALS: BP 118/79; PULSE 80; RESP 15; TEMP 99.8; O2SAT 98
[2018-04-08 16:51] VITALS: RESP 16; O2SAT 99
[2018-04-08 16:59] LABS: AUTOMATED NEUTROPHIL # 7.2 TH/MM3 (1.8-7.7); BASOPHIL # 0.1 TH/MM3 (0-0.2); BASOPHIL % 0.9 % (0.0-2.0); EOSINOPHIL # 0.4 TH/MM3 (0-0.4); EOSINOPHIL % 3.7 % (0.0-4.0); HEMATOCRIT 37.9 % (35.0-46.0); HEMOGLOBIN 12.9 GM/DL (11.6-15.3); LYMPHOCYTE # 1.3 TH/MM3 (1.0-4.8); MEAN CELL VOLUME 84.4 FL (80.0-100.0); MEAN CORPUSCULAR HEMOGLOBIN 28.6 PG (27.0-34.0); MEAN CORPUSCULAR HGB CONC 33.9 % (32.0-36.0); MEAN PLATELET VOLUME 8.3 FL (7.0-11.0); MONO % 6.5 % (0.0-8.0); MONOCYTE # 0.6 TH/MM3 (0-0.9); NEUT % 74.9 % (16.0-70.0); PLATELET COUNT 154 TH/MM3 (150-450); RED BLOOD COUNT 4.49 MIL/MM3 (4.00-5.30); RED CELL DISTRIBUTION WIDTH 14.3 % (11.6-17.2); WHITE BLOOD COUNT 9.6 TH/MM3 (4.0-11.0)
[2018-04-08 17:10] LABS: INTERNATIONAL NORMALIZED RATIO 1.1 RATIO
[2018-04-08] MEDS ORDERED: ACETAMINOPHEN 500 MG CPLT PO ONE (17:15)
[2018-04-08 17:20] LABS: ALBUMIN 4.3 GM/DL (3.4-5.0); ALKALINE PHOSPHATASE 56 U/L (45-117); ALT (GPT) 16 U/L (10-53); AST (GOT) 17 U/L (15-37); BICARBONATE 21.5 MEQ/L (21.0-32.0); BLOOD UREA NITROGEN 36 MG/DL (7-18); CALCIUM 9.1 MG/DL (8.5-10.1); CHLORIDE 103 MEQ/L (98-107); CREATININE 2.53 MG/DL (0.50-1.00); GLOMERULAR FILTRATION RATE 21 ML/MIN (>89); GLUCOSE,RANDOM 104 MG/DL (74-106); MAGNESIUM 2.1 MG/DL (1.5-2.5); SODIUM (NA) 138 MEQ/L (136-145); TOTAL BILIRUBIN ADULT 0.3 MG/DL (0.2-1.0); TOTAL PROTEIN 7.7 GM/DL (6.4-8.2); TROPONIN I LESS THAN 0.02 NG/ML (0.02-0.05)
[2018-04-08 17:20] LABS: BILIRUBIN, URINE NEG (NEG); BLOOD, URINE NEG (NEG); GLUCOSE,URINE NEG (NEG); HYALINE CAST, URINE 13 /lpf (RARE); KETONE, URINE NEG (NEG); MUCUS URINE FEW /lpf (OCC); NITRITE,URINE NEG (NEG); SQUAMOUS EPITHELIAL CELL URINE 7 /hpf (0-5); URINE COLOR YELLOW (YELLW/STRAW); URINE LEUKOCYTE ESTERASE NEG (NEG)
[2018-04-08] MEDS ORDERED: POTASSIUM CHLORIDE 20 MEQ CONTROLLED RELEASE TAB PO ONE (17:30)
[2018-04-08] MEDS ORDERED: POTASSIUM CHLOR 20 MEQ PREMIX 100 ML IV ONE (17:30)
[2018-04-08] MEDS ORDERED: SODIUM CHLORID 0.9% 500 ML INJ 500 ML IV ONE ×2 (17:45→18:00)
[2018-04-08] MEDS ORDERED: MORPHINE SULFATE 4 MG/ML INJ IV PUSH ONE (18:00)
--- NOTE | 2018-04-08 19:22 | HHI.HP ---
[facility] Primary Care Physician Unknown Admission Diagnosis Hypokalemia, acute on chronic kidney injury Diagnoses: (1) Hypokalemia Diagnosis: Principal (2) SHABANA (acute kidney injury) Diagnosis: Principal (3) Wound infection Diagnosis: Principal (4) Brugada syndrome Diagnosis: Principal Travel History International Travel<30 Days: No Contact w/Intl Traveler <30 Da: No Traveled to Known Affected Are: No History of Present Illness This is a 42-year-old female with a PMH of Lupus, Brugada Syndrome, s/p AICD Placement and Removal due to Infection, s/p Wound VAC Placement and Removal, on LifeVest, CKD Stage III, Factitious Disorder and Anxiety who presented to the ER w/ complaints of foul-smelling drainage from left chest wall wound starting earlier today. Follows w/ Dr. Cervantes and Dr. Nichols. Recent admit for similar symptoms in addition to chest pain, Wound Vac removed 03/14/18, states she was supposed to have [facility] do "silver dressing changes", however states [facility] did not have them available so she's been doing dressing changes on her own. Today, noted purulent drainage from wound site, foul-smelling. Denies fever, chills. Previously treated w/ Zyvox 600mg bid which she completed. On arrival, BP 118/ 79, HR 98, O2 sat 97% on RA, Temp 99.8. CBC unremarkable. K+ 2.4. Creatinine 2.53, previously 1.87 on 03/14/2018. UA negative. S/p K+ replacement in ER. Review of Systems Except as stated in HPI: all other systems reviewed are Neg ROS: 14 point review of systems otherwise negative. Past Family Social History Past Medical History PMH: Lupus, Brugada Syndrome, s/p AICD Placement and Removal due to Infection, s/p Wound VAC Placement and Removal, on LifeVest, CKD Stage III, Factitious Disorder and Anxiety Past Surgical History PAST SURGICAL HISTORY: Appendectomy, AICD Placement and Removal, Partial Hysterectomy, Right Subclavian Port Allergies: Coded Allergies: Fish Containing Products (Verified Allergy, Severe, SWELLING IN THROAT, SOB, 04/08/18) cephalexin (Verified Allergy, Severe, RASH,SWELLING, 04/08/18) ketorolac (Verified Allergy, Severe, RASH, 04/08/18) penicillin G (Verified Allergy, Severe, RASH,SWELLING, 04/08/18) prochlorperazine (Verified Allergy, Mild, DYSTONIC REACTION, 04/08/18) promethazine (Verified Allergy, Mild, DYSTONIC REACTION, 04/08/18) gabapentin (Verified Adverse Reaction, Severe, SEIZURES, 04/08/18) Family History PAST FAMILY HISTORY: Reviewed. No h/o DM or CAD Social History PAST SOCIAL HISTORY: Negative for alcohol, tobacco or drugs. Physical Exam Vital Signs Vital Signs Date Time Temp Pulse Resp B/P (MAP) Pulse Ox O2 Delivery O2 Flow Rate FiO2 04/08/18 16:51 16 99 Room Air 04/08/18 16:29 99.8 80 15 118/79 (92) 98 Room Air 04/08/18 15:52 99.8 98 18 118/79 (92) 97 Physical Exam PE: GENERAL: Pleasant middle-aged white female in no acute distress. HEENT: PERRLA, EOMI. No scleral icterus or conjunctival pallor. No lid lag or facial droop. CARDIOVASCULAR: Regular rate and rhythm. No obvious murmurs to auscultation. No chest tenderness to palpation. LifeVest in place RESPIRATORY: No obvious rhonchi or wheezing. Clear to auscultation. Breath sounds equal bilaterally. GASTROINTESTINAL: Abdomen soft, non-tender, nondistended. BS normal. MUSCULOSKELETAL: Extremities without clubbing, cyanosis, or edema. No obvious deformities. Left chest wall wound w/ erythema, no active drainage at this time. NEUROLOGICAL: Awake, alert and oriented x4. No focal neurologic deficits. Moving both upper and lower extremities spontaneously. Laboratory Laboratory Tests Test 04/08/18 16:30 04/08/18 16:40 White Blood Count 9.6 Red Blood Count 4.49 Hemoglobin 12.9 Hematocrit 37.9 Mean Corpuscular Volume 84.4 Mean Corpuscular Hemoglobin 28.6 Mean Corpuscular Hemoglobin Concent 33.9 Red Cell Distribution Width 14.3 Platelet Count 154 Mean Platelet Volume 8.3 Neutrophils (%) (Auto) 74.9 Lymphocytes (%) (Auto) 14.0 Monocytes (%) (Auto) 6.5 Eosinophils (%) (Auto) 3.7 Basophils (%) (Auto) 0.9 Neutrophils # (Auto) 7.2 Lymphocytes # (Auto) 1.3 Monocytes # (Auto) 0.6 Eosinophils # (Auto) 0.4 Basophils # (Auto) 0.1 CBC Comment DIFF FINAL Differential Comment Prothrombin Time 11.0 Prothromb Time International Ratio 1.1 Activated Partial Thromboplast Time 21.4 Blood Urea Nitrogen 36 Creatinine 2.53 Random Glucose 104 Total Protein 7.7 Albumin 4.3 Calcium Level 9.1 Magnesium Level 2.1 Alkaline Phosphatase 56 Aspartate Amino Transf (AST/SGOT) 17 Alanine Aminotransferase (ALT/SGPT) 16 Total Bilirubin 0.3 Sodium Level 138 Potassium Level 2.4 Chloride Level 103 Carbon Dioxide Level 21.5 Anion Gap 14 Estimat Glomerular Filtration Rate 21 Total Creatine Kinase 61 Troponin I LESS THAN 0.02 Urine Color YELLOW Urine Turbidity HAZY Urine pH 6.0 Urine Specific [place] 1.017 Urine Protein TRACE Urine Glucose (UA) NEG Urine Ketones NEG Urine Occult Blood NEG Urine Nitrite NEG Urine Bilirubin NEG Urine Urobilinogen LESS THAN 2.0 Urine Leukocyte Esterase NEG Urine RBC LESS THAN 1 Urine WBC 1 Urine Squamous Epithelial Cells 7 Urine Hyaline Casts 13 Urine Mucus FEW Microscopic Urinalysis Comment CULT NOT INDICATED Result Diagram: 04/08/18 1630 04/08/18 1630 Caprini VTE Risk Assessment Caprini VTE Risk Assessment: No/Low Risk (score <= 1) Caprini Risk Assessment Model Point Value = 1 Point Value = 2 Point Value = 3 Point Value = 5 Age 41-60 Minor surgery BMI > 25 kg/m2 Swollen legs Varicose veins or History of unexplained or recurrent spontaneous Oral contraceptives or hormone replacement Sepsis (< 1 month) Serious lung disease, including pneumonia (< 1 month) Abnormal pulmonary function Acute myocardial infarction Congestive heart failure (< 1 month) History of inflammatory bowel disease Medical patient at bed rest Age 61-74 Arthroscopic surgery Major open surgery (> 45 min) Laparoscopic surgery (> 45 min) Malignancy Confined to bed (> 72 hours) Immobilizing plaster cast Central venous access Age >= 75 History of VTE Family history of VTE Factor V Leiden Prothrombin [id number] Lupus anticoagulant Anticardiolipin antibodies Elevated serum homocysteine Heparin-induced thrombocytopenia Other congenital or acquired thrombophilia Stroke (< 1 month) Elective arthroplasty Hip, pelvis, or leg fracture Acute spinal cord injury (< 1 month) Prophylaxis Regimen Total Risk Factor Score Risk Level Prophylaxis Regimen 0-1 Low Early ambulation 2 Moderate Order ONE of the following: *Sequential Compression Device (SCD) *Heparin 5000 units SQ BID 3-4 Higher Order ONE of the following medications: *Heparin 5000 units SQ TID *Enoxaparin/Lovenox 40 mg SQ daily (WT < 150 kg, CrCl > 30 mL/min) *Enoxaparin/Lovenox 30 mg SQ daily (WT < 150 kg, CrCl > 10-29 mL/min) *Enoxaparin/Lovenox 30 mg SQ BID (WT < 150 kg, CrCl > 30 mL/min) AND/OR *Sequential Compression Device (SCD) 5 or more Highest Order ONE of the following medications: *Heparin 5000 units SQ TID (Preferred with Epidurals) *Enoxaparin/Lovenox 40 mg SQ daily (WT < 150 kg, CrCl > 30 mL/min) *Enoxaparin/Lovenox 30 mg SQ daily (WT < 150 kg, CrCl > 10-29 mL/min) *Enoxaparin/Lovenox 30 mg SQ BID (WT < 150 kg, CrCl > 30 mL/min) AND *Sequential Compression Device (SCD) Assessment and Plan Problem List: (1) Hypokalemia ICD Code: E87.6 - Hypokalemia (2) SHABANA (acute kidney injury) ICD Code: N17.9 - Acute kidney failure, unspecified (3) Wound infection ICD Code: T14.8XXA - Other injury of unspecified body region, initial encounter ; L08.9 - Local infection of the skin and subcutaneous tissue, unspecified (4) Brugada syndrome ICD Code: I49.8 - Other specified cardiac arrhythmias Status: Chronic Assessment and Plan A/P: 1. Hypokalemia: K+ 2.4, s/p replacement in ER, will recheck K+ and Mg tonight , replace as needed, telemetry for possible arrhythmia. 2. SHABANA: Creatinine 2.53, previously 1.87 on 03/14/18, U/a w/ no UTI, IVF for hydration, repeat labs in am, monitor I/O. 3. Wound Infection: h/o AICD Placement w/ Infection, s/p removal and placement of Wound VAC w/ removal on 03/14/18, completed treatment w/ Zyvox 600mg bid, today notes foul-smelling drainage from wound site, no leukocytosis, low- grade temp on arrival, will hold off on antibiotic therapy at this time, Consult Dr. Nichols with whom she follows for further recommendations to initiate antibiotics or not. Wound Consult for dressing changes. 4. Brugada Syndrome: currently on LifeVest as AICD removed due to infection, no events noted. Follows w/ Dr. Cervantes as outpatient, will consult if needed. 5. DVT Prophylaxis: SCD/Teds 6. Social work for d/c planning as needed 7. Case discussed w/ ER physician at length, labs/records/imaging reviewed by me. Physician Certification 2 Midnight Certification Type: Admission for Inpatient Services Order for Inpatient Services The services are ordered in accordance with Medicare regulations or non- Medicare payer requirements, as applicable. In the case of services not specified as inpatient-only, they are appropriately provided as inpatient services in accordance with the 2-midnight benchmark. Estimated LOS (days): 2 days is the estimated time the patient will need to remain in the hospital, assuming treatment plan goals are met and no additional complications. Post-Hospital Plan: Not yet determined Rosangela Clements MD Apr 08, 2018 19:22
[2018-04-08] MEDS ORDERED: BISACODYL 10 MG SUPP RECTAL PRN (19:30)
[2018-04-08] MEDS ORDERED: MAGNESIUM HYDROXIDE SUSP 30 ML CUP PO PRN (19:30)
[2018-04-08] MEDS ORDERED: LACTULOSE SYRUP 20 GM/30 ML CUP PO PRN (19:30)
[2018-04-08] MEDS ORDERED: SENNOSIDES 8.6 MG TAB PO PRN (19:30)
[2018-04-08] MEDS ORDERED: MORPHINE SULFATE 2 MG/ML SYRINGE IV PUSH PRN (19:30)
[2018-04-08] MEDS ORDERED: SODIUM CHLORIDE 0.9% FLUSH 10 ML FLUSH IV FLUSH PRN (19:30)
[2018-04-08] MEDS ORDERED: ACETAMINOPHEN/HYDROcodone 325 MG/5 MG TAB PO PRN (19:30)
[2018-04-08] MEDS ORDERED: ACETAMINOPHEN 325 MG TAB PO PRN (19:30)
[2018-04-08] MEDS ORDERED: METOCLOPRAMIDE HCL 10 MG/2 ML VIAL IV PUSH PRN (19:30)
[2018-04-08 20:00] VITALS: BP 127/84; PULSE 76; RESP 18; TEMP 98.7; O2SAT 100
[2018-04-08 20:58] VITALS: PULSE 72
[2018-04-08] MEDS: DIAZEPAM 10 MG TAB PO PRN (21:22)
[2018-04-08] MEDS: MORPHINE SULFATE 4 MG/ML INJ IV PRN (21:23)
[2018-04-08] MEDS: DOCUSATE SODIUM 50 MG/SENNA 8.6 MG TAB PO SCH (21:24)
[2018-04-08] MEDS: PANTOPRAZOLE SOD 40 MG DELAYED RELEASE TAB PO SCH (21:24)
[2018-04-08] MEDS: SODIUM CHLORIDE 0.9% FLUSH 10 ML FLUSH IV FLUSH SCH (21:24)
[2018-04-08] MEDS: SODIUM CHLOR 0.9% 1000 ML INJ 1,000 ML IV SCH (21:25)
[2018-04-08] MEDS: MORPHINE SULFATE 15 MG CONTROLLED RELEASE TAB PO SCH (23:17)
[2018-04-08 23:42] VITALS: PULSE 58
[2018-04-09] VITALS: BP 121/58; PULSE 62; RESP 18; TEMP 97.7; O2SAT 99
[2018-04-09 04:00] VITALS: BP 109/52; PULSE 68; RESP 18; TEMP 98.1; O2SAT 100
[2018-04-09] MEDS: LEVOTHYROXINE SODIUM 112 MCG TAB PO SCH (05:09)
[2018-04-09] MEDS: MORPHINE SULFATE 4 MG/ML INJ IV PRN ×3 (05:10→18:06)
[2018-04-09] MEDS: SODIUM CHLOR 0.9% 1000 ML INJ 1,000 ML IV SCH ×2 (05:14→15:18)
[2018-04-09] MEDS: DIAZEPAM 10 MG TAB PO PRN ×3 (06:14→22:55)
[2018-04-09] MEDS: MORPHINE SULFATE 15 MG CONTROLLED RELEASE TAB PO SCH ×3 (06:14→22:53)
[2018-04-09 08:00] VITALS: BP 109/63; PULSE 72; RESP 17; TEMP 97.7; O2SAT 100
[2018-04-09] MEDS: SPIRONOLACTONE 25 MG TAB PO SCH (08:46)
[2018-04-09] MEDS: FERROUS SULFATE 325 MG (65 MG ELEMENTAL IRON) TAB PO SCH ×2 (08:46→17:43)
[2018-04-09] MEDS: MAGNESIUM OXIDE 400 MG TAB PO SCH (08:47)
[2018-04-09] MEDS: predniSONE 10 MG TAB PO SCH (08:47)
[2018-04-09] MEDS: DOCUSATE SODIUM 50 MG/SENNA 8.6 MG TAB PO SCH ×2 (08:49→21:00)
[2018-04-09] MEDS: SODIUM CHLORIDE 0.9% FLUSH 10 ML FLUSH IV FLUSH SCH ×2 (08:49→21:00)
--- NOTE | 2018-04-09 09:06 | EKG ---
Date Performed: 04/08/2018 Time Performed: 16:46:42 PTAGE: 42 years EKG: Sinus rhythm INTRAVENTRICULAR CONDUCTION DELAY ABNORMAL ECG PREVIOUS TRACING : 03/11/2018 01.22 Since the previous tracing, no significant change noted DOCTOR: Albert Garcia Interpretating Date/Time 04/09/2018 09:05:56
[2018-04-09 10:45] LABS: AUTOMATED NEUTROPHIL # 3.1 TH/MM3 (1.8-7.7); BASOPHIL # 0.1 TH/MM3 (0-0.2); BASOPHIL % 1.2 % (0.0-2.0); EOSINOPHIL # 0.6 TH/MM3 (0-0.4); HEMATOCRIT 31.8 % (35.0-46.0); HEMOGLOBIN 10.8 GM/DL (11.6-15.3); LYMPHOCYTE # 1.9 TH/MM3 (1.0-4.8); MEAN CELL VOLUME 85.4 FL (80.0-100.0); MEAN PLATELET VOLUME 8.1 FL (7.0-11.0); MONO % 6.4 % (0.0-8.0); MONOCYTE # 0.4 TH/MM3 (0-0.9); NEUT % 50.4 % (16.0-70.0); PLATELET COUNT 118 TH/MM3 (150-450); RED BLOOD COUNT 3.73 MIL/MM3 (4.00-5.30); RED CELL DISTRIBUTION WIDTH 14.4 % (11.6-17.2); WHITE BLOOD COUNT 6.1 TH/MM3 (4.0-11.0)
[2018-04-09 11:30] LABS: ALBUMIN 3.3 GM/DL (3.4-5.0); ALKALINE PHOSPHATASE 45 U/L (45-117); ALT (GPT) 12 U/L (10-53); AST (GOT) 13 U/L (15-37); BLOOD UREA NITROGEN 27 MG/DL (7-18); CALCIUM 8.1 MG/DL (8.5-10.1); CHLORIDE 110 MEQ/L (98-107); CREATININE 1.82 MG/DL (0.50-1.00); GLOMERULAR FILTRATION RATE 31 ML/MIN (>89); GLUCOSE,RANDOM 129 MG/DL (74-106); SODIUM (NA) 143 MEQ/L (136-145); TOTAL BILIRUBIN ADULT 0.3 MG/DL (0.2-1.0)
[2018-04-09 12:00] VITALS: BP 133/69; PULSE 69; RESP 17; TEMP 97.7; O2SAT 100
[2018-04-09] MEDS ORDERED: POTASSIUM CHLORIDE 10 MEQ CONTROLLED RELEASE TAB PO ONE (13:30)
[2018-04-09] MEDS: POTASSIUM CHLOR 20 MEQ PREMIX 100 ML IV SCH ×2 (14:10→15:30)
--- NOTE | 2018-04-09 15:52 | PD.WCN.NOT ---
Wound Consult Description: Received consult from Doctor Clements for wound management of L Axilla Communicated with: RN Willow Beck and Doctor Nixon Recommendation: Please cleanse to L lateral chest with normal saline and pat dry. Apply optifoam gentle border and secure dressing snuggly. change dressing every 2 days or PRN if saturated or dislogded. Order wound culture Please order silver nitrate for treatment of hypergranulated tissue. If wound culture is positive apply Opifoam AG gentle secured with tape. Change dressing every 3 days or PRN for saturation or dislodgement Additional Information: Patient seen on for evaluation of wound management of L Axilla. Patient is known to inpatient wound care and has been seen by wound care team on previous admission.Removed bordered gauze dressing in place to reveal wound to L lateral chest area with 100% red hypergranulated tissue.Wound drainage is minimal and serous/ yellow without odor. Periwound is slightly edematous from 12 to 6 o'clock, but is without induration or erythema. Wound measures 2.4cm x 0.5cm x~+ 0.3. Patient was cleansed with normal saline before wound culture was taken. Skin barrier film was applied to periwound and optifoam gentle border was applied to cover wound. Patient tolerated procedure well. Darling Mahoney [facility] Apr 09, 2018 15:52
[2018-04-09 16:00] VITALS: BP 113/65; PULSE 77; RESP 17; TEMP 98.4; O2SAT 100
--- NOTE | 2018-04-09 16:50 | HHI.PR ---
Subjective Remarks The patient denies fevers or chills. Has some pain below the left axilla. Potassium noted to be severely low. Patient states she has had problems with hypokalemia. Denies chest pain or shortness of breath. Objective Vitals Vital Signs Date Time Temp Pulse Resp B/P (MAP) Pulse Ox O2 Delivery O2 Flow Rate FiO2 04/09/18 12:00 97.7 69 17 133/69 (90) 100 04/09/18 08:00 97.7 72 17 109/63 (78) 100 04/09/18 04:00 98.1 68 18 109/52 (71) 100 04/09/18 00:00 97.7 62 18 121/58 (79) 99 04/08/18 23:42 58 04/08/18 20:58 72 04/08/18 20:00 98.7 76 18 127/84 (98) 100 04/08/18 19:44 04/08/18 16:51 16 99 Room Air I/O 04/08/18 04/08/18 04/08/18 04/09/18 04/09/18 04/09/18 07:00 15:00 23:00 07:00 15:00 23:00 Intake Total 1600 ml 1240 ml Balance 1600 ml 1240 ml Intake Oral 240 ml IV Total 1600 ml 1000 ml # Voids 2 Result Diagram: 04/09/1895704/09/18 0958 Objective Remarks GENERAL: Pleasant middle-aged white female in no acute distress. HEENT: PERRLA, EOMI. No scleral icterus or conjunctival pallor. No lid lag or facial droop. CARDIOVASCULAR: Regular rate and rhythm. No obvious murmurs to auscultation. No chest tenderness to palpation. LifeVest in place RESPIRATORY: No obvious rhonchi or wheezing. Clear to auscultation. Breath sounds equal bilaterally. GASTROINTESTINAL: Abdomen soft, non-tender, nondistended. BS normal. MUSCULOSKELETAL: Extremities without clubbing, cyanosis, or edema. No obvious deformities. Left chest wall wound w/ erythema, no active drainage at this time. NEUROLOGICAL: Awake, alert and oriented x4. No focal neurologic deficits. Moving both upper and lower extremities spontaneously. A/P Problem List: (1) Hypokalemia ICD Code: E87.6 - Hypokalemia (2) SHABANA (acute kidney injury) ICD Code: N17.9 - Acute kidney failure, unspecified (3) Wound infection ICD Code: T14.8XXA - Other injury of unspecified body region, initial encounter ; L08.9 - Local infection of the skin and subcutaneous tissue, unspecified (4) Brugada syndrome ICD Code: I49.8 - Other specified cardiac arrhythmias Status: Chronic Assessment and Plan 1. Hypokalemia: K+ 2.4, s/p replacement in ER, will recheck K+ and Mg tonight , replace as needed, telemetry for possible arrhythmia. 04/09 the patient still with severe hypokalemia with a K of 2.6. We will replace orally with potassium 60 mEq p.o. and with KCl 40 mEq IV. Monitor BMP and replace aggressively. I will consult nephrology since the patient states that she has been having persistent hypokalemia at home. 2. SHABANA: Creatinine 2.53, previously 1.87 on 03/14/18, U/a w/ no UTI, IVF for hydration, repeat labs in am, monitor I/O. 04/09 creatinine trending down, down to 1.82. Upon review of records baseline creatinine seems to be between 1.7 and 1.8. Continue IV fluid. 3. Wound Infection: h/o AICD Placement w/ Infection, s/p removal and placement of Wound VAC w/ removal on 03/14/18, completed treatment w/ Zyvox 600mg bid, today notes foul-smelling drainage from wound site, no leukocytosis, low- grade temp on arrival, will hold off on antibiotic therapy at this time, Consult Dr. Nichols with whom she follows for further recommendations to initiate antibiotics or not. Wound Consult for dressing changes. 04/09 patient is afebrile without any major signs of infection. Discussed the case with wound care nurse who states there was not much discharge from the wound. We will continue to hold off on antibiotics. ID consult pending. 4. Brugada Syndrome: currently on LifeVest as AICD removed due to infection, no events noted. Follows w/ Dr. Cervantes as outpatient, will consult if needed. 5. DVT Prophylaxis: SCD/Teds 6. Social work for d/c planning as needed Discharge Planning Continue to monitor and the medical floor. ID consultation pending. Nephrology consulted. Kashif Rowland MD Apr 09, 2018 16:50
--- NOTE | 2018-04-09 19:04 | PD.ID.CON ---
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 Hernandez is a 42-year-old female with past medical history significant for lupus who is on steroids, Crohn's disease, chronic kidney stage III, recurrent hypokalemia as well as Brugada syndrome status post AICD placement in October 2017. Patient had his AICD removed earlier this year in 2018 for concern for pacemaker lead infection and subsequently had a external pacer and placed in the chest wall. Thereafter patient reports discharge from the site of external pacer all along the lead from the sternum to the mid axillary line. Patient was evaluated by cardiothoracic surgery during her last admission and had external pacer removed. Cultures during that admission grew out MRSA patient is treated with IV antibiotics in hospital and thereafter on discharge was changed to Zyvox oral. Patient was also discharged with wound care wound VAC in place as well as a vest as a replacement for the external pacer as she was not cleared by infectious disease for any device placement. 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 During her admission she was noted to be prying with her wounds concerning for self-inflicted infections. Thereafter patient represented to the emergency department and was restarted on Zyvox although she had a completed course of oral Zyvox prior to that. 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 Of note during this admission she reports she had extreme weakness but was found to have severe hypokalemia which has been addressed in outpatient continues to feel better. Wound care has seen the patient and cultures have been obtained I do not see any obvious ulcer or opening other than a hyper granulation tissue in the area of surgical infection. Of prior openings in the xiphisternal area as well as the mid axillary line have now closed and there is no area of induration or erythema suggestive of any infection at that site. Review of Systems ROS Limitations: Other (Not reliable concern for Munchhausen syndrome) Past Family Social History Allergies: Coded Allergies: Fish Containing Products (Verified Allergy, Severe, SWELLING IN THROAT, SOB, 04/08/18) cephalexin (Verified Allergy, Severe, RASH,SWELLING, 04/08/18) ketorolac (Verified Allergy, Severe, RASH, 04/08/18) penicillin G (Verified Allergy, Severe, RASH,SWELLING, 04/08/18) prochlorperazine (Verified Allergy, Mild, DYSTONIC REACTION, 04/08/18) promethazine (Verified Allergy, Mild, DYSTONIC REACTION, 04/08/18) gabapentin (Verified Adverse Reaction, Severe, SEIZURES, 04/08/18) Past Medical History Brugada syndrome Crohn's disease Lupus Recurrent hypokalemia Hypothyroidism Chronic kidney disease stage III Anxiety GERD Endometriosis Past Surgical History AICD placement Oct 2017 with subsequent removal December 2017 and replacement approximately 3 weeks ago. PEG tube placement/removal Port placement and subsequent removal EGD/colonoscopies Appendectomy Laparotomies Ectopic Cystoscopies Reported Medications Reported Meds & Active Scripts Active Valium (Diazepam) 10 Mg Tab 10 Mg PO TID PRN K-Phos (Potassium Phosphate Monobasic) 500 Mg Tab 500 Mg PO PCHS Magnesium Oxide 400 Mg Tab 400 Mg PO DAILY Pantoprazole (Pantoprazole Sodium) 40 Mg Tab 40 Mg PO HS Spironolactone 25 Mg Tab 25 Mg PO DAILY Potassium Chloride ER (Potassium Chloride) 20 Meq Tab 40 Meq PO TID Ferrous Sulfate 325 Mg (65 Mg Iron) Tablet 325 Mg PO BIDPC Vitamin D3 (Cholecalciferol) 10,000 Unit Cap 20,000 Units PO Q3D @ HS Synthroid (Levothyroxine Sodium) 112 Mcg Tab 112 Mcg PO DAILY@0600 Prednisone 10 Mg Tab 30 Mg PO DAILY Defibrillator Jacket (Device) 1 Ea Device Ea EXTERNAL ONCE Energy = 150 Joules; VT Threshold = 150 BPM; VF Threshold = 200 BPM Use up to 90 days only pt of Dr Cervantes Active Ordered Medications Current Medications Medications (Trade) Dose Ordered Sig/[place]ito Route Start Time Stop Time Status Last Admin (NS Flush) 2 ml UNSCH PRN IVF 04/08/18 16:00 04/08/18 16:50 Sodium Chloride 1,000 ml @ 100 mls/hr Q10H IV 04/08/18 19:18 04/09/18 15:18 (NS Flush) 2 ml UNSCH PRN IV FLUSH 04/08/18 19:30 (NS Flush) 2 ml BID IV FLUSH 04/08/18 21:00 (Reglan Inj) 5 mg Q6H PRN IV PUSH 04/08/18 19:30 (Tylenol) 650 mg Q6H PRN PO 04/08/18 19:30 ([place] 5-325 Mg) 1 tab Q4H PRN PO 04/08/18 19:30 (Irais-Colace) 1 tab BID PO 04/08/18 21:00 (Milk Of Magnesia Liq) 30 ml Q12H PRN PO 04/08/18 19:30 (Senokot) 17.2 mg Q12H PRN PO 04/08/18 19:30 (Dulcolax Supp) 10 mg DAILY PRN RECTAL 04/08/18 19:30 (Lactulose Liq) 30 ml DAILY PRN PO 04/08/18 19:30 (Valium) 10 mg TID PRN PO 04/08/18 19:30 04/09/18 14:11 (Ferrous Sulfate) 325 mg BIDPC PO 04/09/18 09:00 04/09/18 17:43 (Synthroid) 112 mcg DAILY@0600 PO 04/09/18 06:00 04/09/18 05:09 (Mag-Ox) 400 mg DAILY PO 04/09/18 09:00 04/09/18 08:47 (Oramorph Sr) 15 mg Q8HR PO 04/08/18 22:00 04/09/18 13:19 (Protonix) 40 mg HS PO 04/08/18 21:00 04/08/18 21:24 (Deltasone) 30 mg DAILY PO 04/09/18 09:00 04/09/18 08:47 (Aldactone) 25 mg DAILY PO 04/09/18 09:00 04/09/18 08:46 (Morphine Inj) 2 mg Q3H PRN IV 04/08/18 21:00 04/09/18 18:06 Family History Mother, lupus, hypothyroidism, Crohn's disease Father, hypertension Social History Denies any tobacco, alcohol, or illicit drug use. Has a son who is in fourth grade. Physical Exam Vital Signs Vital Signs Date Time Temp Pulse Resp B/P (MAP) Pulse Ox O2 Delivery O2 Flow Rate FiO2 04/09/18 16:00 98.4 77 17 113/65 (81) 100 04/09/18 12:00 97.7 69 17 133/69 (90) 100 04/09/18 08:00 97.7 72 17 109/63 (78) 100 04/09/18 04:00 98.1 68 18 109/52 (71) 100 04/09/18 00:00 97.7 62 18 121/58 (79) 99 04/08/18 23:42 58 04/08/18 20:58 72 04/08/18 20:00 98.7 76 18 127/84 (98) 100 04/08/18 19:44 Physical Exam GENERAL: This is a well-nourished, well-developed patient, in no apparent distress. SKIN: No rashes, ecchymoses or lesions. Cool and dry. HEAD: Atraumatic. Normocephalic. No temporal or scalp tenderness. EYES: Pupils equal round and reactive. Extraocular motions intact. No scleral icterus. No injection or drainage. ENT: Nose without bleeding, purulent drainage or septal hematoma. Throat without erythema, tonsillar hypertrophy or exudate. Uvula midline. Airway patent. NECK: Trachea midline. Supple, nontender, no meningeal signs. CARDIOVASCULAR: Heart sounds audible. Left chest wall there is no evidence of active infection forms of erythema and duration there is a prior surgical site with hyper granulation tissue noted with no opening no active discharge. RESPIRATORY: Clear to auscultation. Breath sounds equal bilaterally. No wheezes , rales, or rhonchi. GASTROINTESTINAL: Abdomen soft, non-tender, nondistended. MUSCULOSKELETAL: Extremities without clubbing, cyanosis, or edema. No joint tenderness, effusion, or edema noted. No calf tenderness. Negative Homans sign bilaterally. NEUROLOGICAL: Awake and alert. Nonfocal exam normal speech. Psych cooperative IV line sites with no evidence of infection. Laboratory Laboratory Tests Test 04/09/18 00:22 04/09/18 09:58 Potassium Level 3.0 2.6 Magnesium Level 2.0 White Blood Count 6.1 Red Blood Count 3.73 Hemoglobin 10.8 Hematocrit 31.8 Mean Corpuscular Volume 85.4 Mean Corpuscular Hemoglobin 29.0 Mean Corpuscular Hemoglobin Concent 34.0 Red Cell Distribution Width 14.4 Platelet Count 118 Mean Platelet Volume 8.1 Neutrophils (%) (Auto) 50.4 Lymphocytes (%) (Auto) 32.0 Monocytes (%) (Auto) 6.4 Eosinophils (%) (Auto) 10.0 Basophils (%) (Auto) 1.2 Neutrophils # (Auto) 3.1 Lymphocytes # (Auto) 1.9 Monocytes # (Auto) 0.4 Eosinophils # (Auto) 0.6 Basophils # (Auto) 0.1 CBC Comment DIFF FINAL Differential Comment Blood Urea Nitrogen 27 Creatinine 1.82 Random Glucose 129 Total Protein 6.0 Albumin 3.3 Calcium Level 8.1 Alkaline Phosphatase 45 Aspartate Amino Transf (AST/SGOT) 13 Alanine Aminotransferase (ALT/SGPT) 12 Total Bilirubin 0.3 Sodium Level 143 Chloride Level 110 Carbon Dioxide Level 23.0 Anion Gap 10 Estimat Glomerular Filtration Rate 31 Date/Time Source Procedure Growth Status 04/09/18 15:00 Wound Chest Gram Stain Pending Received 04/09/18 15:00 Wound Chest Wound Culture Pending Received Result Diagram: 04/09/18 0958 04/09/18 0958 Assessment and Plan Assessment and Plan Prior history of MRSA external pacer infection status post removal of the external pacer followed by vest on discharge 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 History of lupus on steroids History of Brugada syndrome Severe hypokalemia Recommendations Observe off of antibiotics I would not go by the wound cultures obtained this time as there is really no opening I just noticed a hyper granulation over the prior surgical site. We will get an ultrasound of that area to determine if there is any fluid collection suggestive of infection such as loculated thick-walled fluid collection We will follow clinically and provide further recommendations Discussed with patient Discussed with Lay Corbett MD Apr 09, 2018 19:04
[2018-04-09 20:00] VITALS: BP 145/71; PULSE 76; RESP 18; TEMP 98.6; O2SAT 100
[2018-04-09] MEDS ORDERED: POTASSIUM CHLOR 20 MEQ PREMIX 100 ML IV SCH (22:45)
[2018-04-09] MEDS: PANTOPRAZOLE SOD 40 MG DELAYED RELEASE TAB PO SCH (22:55)
[2018-04-10] MEDS: SODIUM CHLOR 0.9% 1000 ML INJ 1,000 ML IV SCH ×3 (00:03→20:41)
[2018-04-10 00:17] VITALS: BP 128/51; PULSE 80; RESP 18; TEMP 98; O2SAT 96
--- NOTE | 2018-04-10 01:34 | RADRPT ---
EXAM DATE: 04/10/2018 1:22 AM EDT AGE/SEX: 42 years / Female INDICATIONS: Evaluate for abscess in the left axilla. CLINICAL DATA: This is the patient's subsequent encounter. Patient reports that signs and symptoms h ave been present for 1 month and indicates a pain score of 3/10. Location: Laterality: MEDICAL/SURGICAL HISTORY: Lupus. Renal failure. Appendectomy. Hysterectomy. Pacemaker. COMPARISON: [facility] [place], ULTRASOUND SOFT TISSUE, 02/07/2018. . FINDINGS: A focused ultrasound was performed in the prior location of patient's defibrillator. There is a nonsp ecific area of decreased echogenicity measuring about 3.8 cm. No definite loculated fluid collections are seen. Findings suggest most likely scar tissue. No increased blood flow is seen. CONCLUSION: 1. Nonspecific decreased echogenicity and soft tissue changes measuring 3.8 cm in the previous locat ion of patient's defibrillator. Probable scar tissue. Electronically signed by: Juan Pablo Tracy MD 04/10/2018 1:33 AM EDT
[2018-04-10] MEDS: MORPHINE SULFATE 4 MG/ML INJ IV PRN ×7 (02:59→20:37)
[2018-04-10 04:28] VITALS: BP 104/54; PULSE 74; RESP 18; TEMP 98.1; O2SAT 96
[2018-04-10] MEDS: LEVOTHYROXINE SODIUM 112 MCG TAB PO SCH (04:55)
[2018-04-10] MEDS: MORPHINE SULFATE 15 MG CONTROLLED RELEASE TAB PO SCH ×3 (04:55→22:45)
[2018-04-10] MEDS: DIAZEPAM 10 MG TAB PO PRN ×3 (06:26→22:45)
[2018-04-10 08:00] VITALS: BP 115/53; PULSE 79; RESP 18; TEMP 97.8; O2SAT 99
[2018-04-10] MEDS: SODIUM CHLORIDE 0.9% FLUSH 10 ML FLUSH IV FLUSH SCH ×2 (09:00→20:42)
[2018-04-10] MEDS: DOCUSATE SODIUM 50 MG/SENNA 8.6 MG TAB PO SCH ×2 (09:00→20:42)
[2018-04-10] MEDS: predniSONE 10 MG TAB PO SCH (09:25)
[2018-04-10] MEDS: MAGNESIUM OXIDE 400 MG TAB PO SCH (09:26)
[2018-04-10] MEDS: SPIRONOLACTONE 25 MG TAB PO SCH (09:26)
[2018-04-10] MEDS: FERROUS SULFATE 325 MG (65 MG ELEMENTAL IRON) TAB PO SCH ×2 (09:26→17:38)
[2018-04-10 11:43] LABS: AUTOMATED NEUTROPHIL # 3.9 TH/MM3 (1.8-7.7); BASOPHIL # 0.1 TH/MM3 (0-0.2); BASOPHIL % 1.2 % (0.0-2.0); EOSINOPHIL # 0.5 TH/MM3 (0-0.4); EOSINOPHIL % 8.1 % (0.0-4.0); HEMATOCRIT 32.7 % (35.0-46.0); HEMOGLOBIN 10.9 GM/DL (11.6-15.3); LYMPH % 24.8 % (9.0-44.0); LYMPHOCYTE # 1.6 TH/MM3 (1.0-4.8); MEAN CORPUSCULAR HEMOGLOBIN 28.8 PG (27.0-34.0); MEAN CORPUSCULAR HGB CONC 33.5 % (32.0-36.0); MEAN PLATELET VOLUME 8.3 FL (7.0-11.0); MONOCYTE # 0.5 TH/MM3 (0-0.9); NEUT % 58.9 % (16.0-70.0); PLATELET COUNT 133 TH/MM3 (150-450); RED CELL DISTRIBUTION WIDTH 14.4 % (11.6-17.2); WHITE BLOOD COUNT 6.6 TH/MM3 (4.0-11.0)
[2018-04-10 12:00] VITALS: BP 121/53; PULSE 80; RESP 16; TEMP 98.2; O2SAT 99
[2018-04-10 12:05] LABS: ALBUMIN 3.3 GM/DL (3.4-5.0); AST (GOT) 11 U/L (15-37); BICARBONATE 26.2 MEQ/L (21.0-32.0); BLOOD UREA NITROGEN 18 MG/DL (7-18); CALCIUM 8.4 MG/DL (8.5-10.1); CHLORIDE 112 MEQ/L (98-107); CREATININE 1.32 MG/DL (0.50-1.00); GLOMERULAR FILTRATION RATE 44 ML/MIN (>89); GLUCOSE,RANDOM 88 MG/DL (74-106); SODIUM (NA) 146 MEQ/L (136-145)
[2018-04-10 12:09] LABS: ALKALINE PHOSPHATASE 46 U/L (45-117); ALT (GPT) 13 U/L (10-53); TOTAL BILIRUBIN ADULT 0.2 MG/DL (0.2-1.0); TOTAL PROTEIN 6.1 GM/DL (6.4-8.2)
[2018-04-10] MEDS ORDERED: POTASSIUM CHLORIDE 10 MEQ CONTROLLED RELEASE TAB PO ONE (13:00)
--- NOTE | 2018-04-10 13:36 | HHI.IDPN ---
Subjective Subjective Remarks Ms. Hernandez is a 42-year-old female with past medical history significant for lupus who is on steroids, Crohn's disease, chronic kidney stage III, recurrent hypokalemia as well as Brugada syndrome status post AICD placement in October 2017. Patient had his AICD removed earlier this year in 2018 for concern for pacemaker lead infection and subsequently had a external pacer and placed in the chest wall. Thereafter patient reports discharge from the site of external pacer all along the lead from the sternum to the mid axillary line. Patient was evaluated by cardiothoracic surgery during her last admission and had external pacer removed. Cultures during that admission grew out MRSA patient is treated with IV antibiotics in hospital and thereafter on discharge was changed to Zyvox oral. Patient was also discharged with wound care wound VAC in place as well as a vest as a replacement for the external pacer as she was not cleared by infectious disease for any device placement. 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 During her admission she was noted to be prying with her wounds concerning for self-inflicted infections. Thereafter patient represented to the emergency department and was restarted on Zyvox although she had a completed course of oral Zyvox prior to that. 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 Of note during this admission she reports she had extreme weakness but was found to have severe hypokalemia which has been addressed in outpatient continues to feel better. Wound care has seen the patient and cultures have been obtained I do not see any obvious ulcer or opening other than a hyper granulation tissue in the area of surgical infection. Of prior openings in the xiphisternal area as well as the mid axillary line have now closed and there is no area of induration or erythema suggestive of any infection at that site. Overnight events reviewed. No fever No rash No diarrhea No nausea vomiting Persistent hypokalemia patient reports she was on Spironolactone and she thinks she has been told she has renal involvement by lupus Discussed with Dr. Alicea he will consult nephrology Antibiotics None Lines Line sites with no evidence of infection. Past Medical History Past Medical History Brugada syndrome Crohn's disease Lupus Recurrent hypokalemia Hypothyroidism Chronic kidney disease stage III Anxiety GERD Endometriosis Past Surgical History AICD placement Oct 2017 with subsequent removal December 2017 and replacement approximately 3 weeks ago. PEG tube placement/removal Port placement and subsequent removal EGD/colonoscopies Appendectomy Laparotomies Ectopic Cystoscopies Allergies: Coded Allergies: Fish Containing Products (Verified Allergy, Severe, SWELLING IN THROAT, SOB, 04/08/18) cephalexin (Verified Allergy, Severe, RASH,SWELLING, 04/08/18) ketorolac (Verified Allergy, Severe, RASH, 04/08/18) penicillin G (Verified Allergy, Severe, RASH,SWELLING, 04/08/18) prochlorperazine (Verified Allergy, Mild, DYSTONIC REACTION, 04/08/18) promethazine (Verified Allergy, Mild, DYSTONIC REACTION, 04/08/18) gabapentin (Verified Adverse Reaction, Severe, SEIZURES, 04/08/18) Objective . Vital Signs Date Time Temp Pulse Resp B/P (MAP) Pulse Ox O2 Delivery O2 Flow Rate FiO2 04/10/18 12:00 98.2 80 16 121/53 (75) 99 04/10/18 08:00 97.8 79 18 115/53 (73) 99 04/10/18 04:28 98.1 74 18 104/54 (71) 96 04/10/18 00:17 98.0 80 18 128/51 (76) 96 04/09/18 20:00 98.6 76 18 145/71 (95) 100 04/09/18 16:00 98.4 77 17 113/65 (81) 100 04/10/18 04/10/18 04/11/18 14:59 22:59 06:59 Intake Total 100 ml Balance 100 ml IV Total 100 ml . Laboratory Tests Test 04/08/18 16:30 04/09/18 09:58 04/10/18 10:38 White Blood Count 9.6 TH/MM3 6.1 TH/MM3 6.6 TH/MM3 Red Blood Count 4.49 MIL/MM3 3.73 MIL/MM3 3.80 MIL/MM3 Hemoglobin 12.9 GM/DL 10.8 GM/DL 10.9 GM/DL Hematocrit 37.9 % 31.8 % 32.7 % Mean Corpuscular Volume 84.4 FL 85.4 FL 86.0 FL Mean Corpuscular Hemoglobin 28.6 PG 29.0 PG 28.8 PG Mean Corpuscular Hemoglobin Concent 33.9 % 34.0 % 33.5 % Red Cell Distribution Width 14.3 % 14.4 % 14.4 % Platelet Count 154 TH/MM3 118 TH/MM3 133 TH/MM3 Mean Platelet Volume 8.3 FL 8.1 FL 8.3 FL Neutrophils (%) (Auto) 74.9 % 50.4 % 58.9 % Lymphocytes (%) (Auto) 14.0 % 32.0 % 24.8 % Monocytes (%) (Auto) 6.5 % 6.4 % 7.0 % Eosinophils (%) (Auto) 3.7 % 10.0 % 8.1 % Basophils (%) (Auto) 0.9 % 1.2 % 1.2 % Neutrophils # (Auto) 7.2 TH/MM3 3.1 TH/MM3 3.9 TH/MM3 Lymphocytes # (Auto) 1.3 TH/MM3 1.9 TH/MM3 1.6 TH/MM3 Monocytes # (Auto) 0.6 TH/MM3 0.4 TH/MM3 0.5 TH/MM3 Eosinophils # (Auto) 0.4 TH/MM3 0.6 TH/MM3 0.5 TH/MM3 Basophils # (Auto) 0.1 TH/MM3 0.1 TH/MM3 0.1 TH/MM3 CBC Comment DIFF FINAL DIFF FINAL DIFF FINAL Differential Comment Laboratory Tests Test 04/08/18 16:30 04/09/18 00:22 04/09/18 09:58 04/10/18 10:38 Blood Urea Nitrogen 36 MG/DL 27 MG/DL 18 MG/DL Creatinine 2.53 MG/DL 1.82 MG/DL 1.32 MG/DL Random Glucose 104 MG/DL 129 MG/DL 88 MG/DL Total Protein 7.7 GM/DL 6.0 GM/DL 6.1 GM/DL Albumin 4.3 GM/DL 3.3 GM/DL 3.3 GM/DL Calcium Level 9.1 MG/DL 8.1 MG/DL 8.4 MG/DL Magnesium Level 2.1 MG/DL 2.0 MG/DL Alkaline Phosphatase 56 U/L 45 U/L 46 U/L Aspartate Amino Transf (AST/SGOT) 17 U/L 13 U/L 11 U/L Alanine Aminotransferase (ALT/SGPT) 16 U/L 12 U/L 13 U/L Total Bilirubin 0.3 MG/DL 0.3 MG/DL 0.2 MG/DL Sodium Level 138 MEQ/L 143 MEQ/L 146 MEQ/L Potassium Level 2.4 MEQ/L 3.0 MEQ/L 2.6 MEQ/L 3.4 MEQ/L Chloride Level 103 MEQ/L 110 MEQ/L 112 MEQ/L Carbon Dioxide Level 21.5 MEQ/L 23.0 MEQ/L 26.2 MEQ/L Anion Gap 14 MEQ/L 10 MEQ/L 8 MEQ/L Estimat Glomerular Filtration Rate 21 ML/MIN 31 ML/MIN 44 ML/MIN Total Creatine Kinase 61 U/L Troponin I LESS THAN 0.02 NG/ML Microbiology Date/Time Source Procedure Growth Status 04/09/18 15:00 Wound Chest Gram Stain - Final Resulted 04/09/18 15:00 Wound Chest Wound Culture Pending Resulted Imaging Last Impressions Soft Tissue Ultrasound 04/09/18 0000 Signed Impressions: CONCLUSION: 1. Nonspecific decreased echogenicity and soft tissue changes measuring 3.8 cm in the previous location of patient's defibrillator. Probable scar tissue. Physical Exam GENERAL: This is a well-nourished, well-developed patient, in no apparent distress. SKIN: No rashes, ecchymoses or lesions. Cool and dry. HEAD: Atraumatic. Normocephalic. No temporal or scalp tenderness. EYES: Pupils equal round and reactive. Extraocular motions intact. No scleral icterus. No injection or drainage. ENT: Nose without bleeding, purulent drainage or septal hematoma. Throat without erythema, tonsillar hypertrophy or exudate. Uvula midline. Airway patent. NECK: Trachea midline. Supple, nontender, no meningeal signs. CARDIOVASCULAR: Heart sounds audible. Left chest wall there is no evidence of active infection forms of erythema and duration there is a prior surgical site with hyper granulation tissue noted with no opening no active discharge. RESPIRATORY: Clear to auscultation. Breath sounds equal bilaterally. No wheezes , rales, or rhonchi. GASTROINTESTINAL: Abdomen soft, non-tender, nondistended. MUSCULOSKELETAL: Extremities without clubbing, cyanosis, or edema. No joint tenderness, effusion, or edema noted. No calf tenderness. Negative Homans sign bilaterally. NEUROLOGICAL: Awake and alert. Nonfocal exam normal speech. Psych cooperative IV line sites with no evidence of infection. 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 jordan at 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 History of lupus on steroids History of Brugada syndrome Severe hypokalemia Recommendations Continue to observe off of antibiotics I would not go by the wound cultures obtained this time as there is really no opening I just noticed a hyper granulation over the prior surgical site. Ultrasound of the left breast and axillary area suggestive of scarring process no fluid collection noted. Clinically there is no evidence of infection either Discussed with patient Discussed with RN Discussed with Dr. Alicea We will sign off please call back if any change in clinical condition or questions. I will be OOT from 04/11/2018 to 04/23/2018. I will be back in town 04/24/2018. Lay Guerra MD Apr 10, 2018 13:36
[2018-04-10] MEDS ORDERED: SILVER NITR/POTASSIUM NITRATE APPLICATORS TOPICAL PRN (15:45)
[2018-04-10 16:00] VITALS: BP 140/60; PULSE 75; RESP 18; TEMP 98.6; O2SAT 99
--- NOTE | 2018-04-10 16:28 | HHI.PR ---
Subjective Remarks Deferred entry, the patient was seen earlier at 11:45 AM. The patient states that she feels weak Denies fevers or chills. Denies diarrhea. Still complains of some pain in the left side of the chest around her wound area. Objective Vitals Vital Signs Date Time Temp Pulse Resp B/P (MAP) Pulse Ox O2 Delivery O2 Flow Rate FiO2 04/10/18 12:00 98.2 80 16 121/53 (75) 99 04/10/18 08:00 97.8 79 18 115/53 (73) 99 04/10/18 04:28 98.1 74 18 104/54 (71) 96 04/10/18 00:17 98.0 80 18 128/51 (76) 96 04/09/18 20:00 98.6 76 18 145/71 (95) 100 I/O 04/09/18 04/09/18 04/09/18 04/10/18 04/10/18 04/10/18 07:00 15:00 23:00 07:00 15:00 23:00 Intake Total 1240 ml 2264 ml 760 ml 100 ml Balance 1240 ml 2264 ml 760 ml 100 ml Intake Oral 240 ml 1164 ml 760 ml IV Total 1000 ml 1100 ml 100 ml # Voids 2 8 3 # Bowel Movements 1 Result Diagram: 04/10/18 1038 04/10/18 1038 Imaging Last Impressions Soft Tissue Ultrasound 04/09/18 0000 Signed Impressions: CONCLUSION: 1. Nonspecific decreased echogenicity and soft tissue changes measuring 3.8 cm in the previous location of patient's defibrillator. Probable scar tissue. Objective Remarks GENERAL: Pleasant middle-aged white female in no acute distress. HEENT: PERRLA, EOMI. No scleral icterus or conjunctival pallor. No lid lag or facial droop. CARDIOVASCULAR: Regular rate and rhythm. No obvious murmurs to auscultation. No chest tenderness to palpation. LifeVest in place RESPIRATORY: No obvious rhonchi or wheezing. Clear to auscultation. Breath sounds equal bilaterally. GASTROINTESTINAL: Abdomen soft, non-tender, nondistended. BS normal. MUSCULOSKELETAL: Extremities without clubbing, cyanosis, or edema. No obvious deformities. Left chest wall wound w/ erythema, no active drainage at this time. NEUROLOGICAL: Awake, alert and oriented x4. No focal neurologic deficits. Moving both upper and lower extremities spontaneously. A/P Problem List: (1) Hypokalemia ICD Code: E87.6 - Hypokalemia (2) SHABANA (acute kidney injury) ICD Code: N17.9 - Acute kidney failure, unspecified (3) Wound infection ICD Code: T14.8XXA - Other injury of unspecified body region, initial encounter ; L08.9 - Local infection of the skin and subcutaneous tissue, unspecified (4) Brugada syndrome ICD Code: I49.8 - Other specified cardiac arrhythmias Status: Chronic Assessment and Plan 1. Hypokalemia: K+ 2.4, s/p replacement in ER, will recheck K+ and Mg tonight , replace as needed, telemetry for possible arrhythmia. 04/09 the patient still with severe hypokalemia with a K of 2.6. We will replace orally with potassium 60 mEq p.o. and with KCl 40 mEq IV. Monitor BMP and replace aggressively. I will consult nephrology since the patient states that she has been having persistent hypokalemia at home. 04/10 hypokalemia is greatly improved. Nephrology consult still pending. We will continue to replace orally and monitor BMP. 2. SHABANA: Creatinine 2.53, previously 1.87 on 03/14/18, U/a w/ no UTI, IVF for hydration, repeat labs in am, monitor I/O. 04/09 creatinine trending down, down to 1.82. Upon review of records baseline creatinine seems to be between 1.7 and 1.8. Continue IV fluid. 04/10 resolved after IV fluid administration. Creatinine down to 1.32. Continue to monitor BMP. Nephrology consultation pending. 3. Wound Infection: h/o AICD Placement w/ Infection, s/p removal and placement of Wound VAC w/ removal on 03/14/18, completed treatment w/ Zyvox 600mg bid, today notes foul-smelling drainage from wound site, no leukocytosis, low- grade temp on arrival, will hold off on antibiotic therapy at this time, Consult Dr. Nichols with whom she follows for further recommendations to initiate antibiotics or not. Wound Consult for dressing changes. 04/09 patient is afebrile without any major signs of infection. Discussed the case with wound care nurse who states there was not much discharge from the wound. We will continue to hold off on antibiotics. ID consult pending. 04/10 ID consultation appreciated. Discussed the case with Dr. Mcgrath who recommends observation off antibiotics. ID signed off. 4. Brugada Syndrome: currently on LifeVest as AICD removed due to infection, no events noted. Follows w/ Dr. Cervantes as outpatient, will consult if needed. 5. DVT Prophylaxis: SCD/Teds 6. Social work for d/c planning as needed Discharge Planning Possible discharge in a.m. pending nephrology consultation and recommendations. Kashif Rowland MD Apr 10, 2018 16:28
--- NOTE | 2018-04-10 16:28 | PD.CONS ---
HPI Service Nephrology Consult Requested By Dr. Nixon Tatum Reason for Consult Acute kidney injury on chronic kidney injury with persistent hypokalemia. Hx of lupus Primary Care Physician Unknown History of Present Illness This is a 42-year-old female with past medical history of chronic hypokalemia, history of chronic kidney disease with recurrent acute kidney injury, per records lupus, brugada syndrome, s/p AICD Placement and Removal due to Infection, s/p Wound VAC Placement and Removal, on LifeVest, CKD Stage III, and Anxiety. Presented to [facility] emergency room w/ complaints of foul-smelling drainage from left chest wall. Nephrology is consulted for acute kidney injury and persistent hypokalemia with a creatinine of 1.32 on day of consult as elevated as 2.53 on 03/08. Potassium level has been at 2.3 and 2.5 however today has improved to 3.4. She has been on Aldactone for chronic hypokalemia. (Cher Freeman) Review of Systems Constitutional: COMPLAINS OF: Fatigue Cardiovascular: COMPLAINS OF: Chest pain Gastrointestinal: DENIES: Nausea, Vomiting Musculoskeletal: COMPLAINS OF: Joint pain, Muscle aches (Cher Freeman) Past Family Social History Allergies: Coded Allergies: Fish Containing Products (Verified Allergy, Severe, SWELLING IN THROAT, SOB, 04/08/18) cephalexin (Verified Allergy, Severe, RASH,SWELLING, 04/08/18) ketorolac (Verified Allergy, Severe, RASH, 04/08/18) penicillin G (Verified Allergy, Severe, RASH,SWELLING, 04/08/18) prochlorperazine (Verified Allergy, Mild, DYSTONIC REACTION, 04/08/18) promethazine (Verified Allergy, Mild, DYSTONIC REACTION, 04/08/18) gabapentin (Verified Adverse Reaction, Severe, SEIZURES, 04/08/18) Past Medical History Lupus, Brugada Syndrome, s/p AICD Placement and Removal due to Infection, s/p Wound VAC Placement and Removal, on LifeVest, CKD Stage III, Factitious Disorder and anxiety. Past Surgical History Appendectomy, AICD Placement and Removal, Partial Hysterectomy, Right Subclavian Port, J tube placement Active Ordered Medications Current Medications Medications (Trade) Dose Ordered Sig/Osito Route Start Time Stop Time Status Last Admin (NS Flush) 2 ml UNSCH PRN IVF 04/08/18 16:00 04/08/18 16:50 Sodium Chloride 1,000 ml @ 100 mls/hr Q10H IV 04/08/18 19:18 04/10/18 13:31 (NS Flush) 2 ml UNSCH PRN IV FLUSH 04/08/18 19:30 (NS Flush) 2 ml BID IV FLUSH 04/08/18 21:00 (Reglan Inj) 5 mg Q6H PRN IV PUSH 04/08/18 19:30 (Tylenol) 650 mg Q6H PRN PO 04/08/18 19:30 (Griffin 5-325 Mg) 1 tab Q4H PRN PO 04/08/18 19:30 (Irais-Colace) 1 tab BID PO 04/08/18 21:00 (Milk Of Magnesia Liq) 30 ml Q12H PRN PO 04/08/18 19:30 (Senokot) 17.2 mg Q12H PRN PO 04/08/18 19:30 (Dulcolax Supp) 10 mg DAILY PRN RECTAL 04/08/18 19:30 (Lactulose Liq) 30 ml DAILY PRN PO 04/08/18 19:30 (Valium) 10 mg TID PRN PO 04/08/18 19:30 04/10/18 15:43 (Ferrous Sulfate) 325 mg BIDPC PO 04/09/18 09:00 04/10/18 09:26 (Synthroid) 112 mcg DAILY@0600 PO 04/09/18 06:00 04/10/18 04:55 (Mag-Ox) 400 mg DAILY PO 04/09/18 09:00 04/10/18 09:26 (Oramorph Sr) 15 mg Q8HR PO 04/08/18 22:00 04/10/18 13:30 (Protonix) 40 mg HS PO 04/08/18 21:00 04/09/18 22:55 (Deltasone) 30 mg DAILY PO 04/09/18 09:00 04/10/18 09:25 (Aldactone) 25 mg DAILY PO 04/09/18 09:00 04/10/18 09:26 (Morphine Inj) 2 mg Q3H PRN IV 04/08/18 21:00 04/10/18 13:34 (Silver Nitrate Applicators) 1 appl UNSCH PRN TOPICAL 04/10/18 15:45 Family History Non contributory Social History Denies alcohol and smoking Lives with family (LydiaCherjuanpablo PEDRO) Physical Exam Vital Signs Vital Signs Date Time Temp Pulse Resp B/P (MAP) Pulse Ox O2 Delivery O2 Flow Rate FiO2 04/10/18 12:00 98.2 80 16 121/53 (75) 99 04/10/18 08:00 97.8 79 18 115/53 (73) 99 04/10/18 04:28 98.1 74 18 104/54 (71) 96 04/10/18 00:17 98.0 80 18 128/51 (76) 96 04/09/18 20:00 98.6 76 18 145/71 (95) 100 Physical Exam GENERAL:Alert and oriented. SKIN: Warm and dry. Left chest wall with no redness HEAD: Normocephalic. EYES: No scleral icterus. No injection or drainage. NECK: Supple, trachea midline. No JVD or lymphadenopathy. CARDIOVASCULAR: Regular rate and rhythm without murmurs, gallops, or rubs. RESPIRATORY: Breath sounds equal bilaterally. No accessory muscle use. GASTROINTESTINAL: Abdomen soft, non-tender, nondistended. MUSCULOSKELETAL: No cyanosis, or edema. BACK: Nontender without obvious deformity. No CVA tenderness. Current Medications Medications (Trade) Dose Ordered Sig/Osito Route Start Time Stop Time Status Last Admin (NS Flush) 2 ml UNSCH PRN IVF 04/08/18 16:00 04/08/18 16:50 Sodium Chloride 1,000 ml @ 100 mls/hr Q10H IV 04/08/18 19:18 04/10/18 13:31 (NS Flush) 2 ml UNSCH PRN IV FLUSH 04/08/18 19:30 (NS Flush) 2 ml BID IV FLUSH 04/08/18 21:00 (Reglan Inj) 5 mg Q6H PRN IV PUSH 04/08/18 19:30 (Tylenol) 650 mg Q6H PRN PO 04/08/18 19:30 (Griffin 5-325 Mg) 1 tab Q4H PRN PO 04/08/18 19:30 (Irais-Colace) 1 tab BID PO 04/08/18 21:00 (Milk Of Magnesia Liq) 30 ml Q12H PRN PO 04/08/18 19:30 (Senokot) 17.2 mg Q12H PRN PO 04/08/18 19:30 (Dulcolax Supp) 10 mg DAILY PRN RECTAL 04/08/18 19:30 (Lactulose Liq) 30 ml DAILY PRN PO 04/08/18 19:30 (Valium) 10 mg TID PRN PO 04/08/18 19:30 04/10/18 15:43 (Ferrous Sulfate) 325 mg BIDPC PO 04/09/18 09:00 04/10/18 09:26 (Synthroid) 112 mcg DAILY@0600 PO 04/09/18 06:00 04/10/18 04:55 (Mag-Ox) 400 mg DAILY PO 04/09/18 09:00 04/10/18 09:26 (Oramorph Sr) 15 mg Q8HR PO 04/08/18 22:00 04/10/18 13:30 (Protonix) 40 mg HS PO 04/08/18 21:00 04/09/18 22:55 (Deltasone) 30 mg DAILY PO 04/09/18 09:00 04/10/18 09:25 (Aldactone) 25 mg DAILY PO 04/09/18 09:00 04/10/18 09:26 (Morphine Inj) 2 mg Q3H PRN IV 04/08/18 21:00 04/10/18 13:34 (Silver Nitrate Applicators) 1 appl UNSCH PRN TOPICAL 5 Laboratory Laboratory Tests Test 04/10/18 10:38 White Blood Count 6.6 Red Blood Count 3.80 Hemoglobin 10.9 Hematocrit 32.7 Mean Corpuscular Volume 86.0 Mean Corpuscular Hemoglobin 28.8 Mean Corpuscular Hemoglobin Concent 33.5 Red Cell Distribution Width 14.4 Platelet Count 133 Mean Platelet Volume 8.3 Neutrophils (%) (Auto) 58.9 Lymphocytes (%) (Auto) 24.8 Monocytes (%) (Auto) 7.0 Eosinophils (%) (Auto) 8.1 Basophils (%) (Auto) 1.2 Neutrophils # (Auto) 3.9 Lymphocytes # (Auto) 1.6 Monocytes # (Auto) 0.5 Eosinophils # (Auto) 0.5 Basophils # (Auto) 0.1 CBC Comment DIFF FINAL Differential Comment Blood Urea Nitrogen 18 Creatinine 1.32 Random Glucose 88 Total Protein 6.1 Albumin 3.3 Calcium Level 8.4 Alkaline Phosphatase 46 Aspartate Amino Transf (AST/SGOT) 11 Alanine Aminotransferase (ALT/SGPT) 13 Total Bilirubin 0.2 Sodium Level 146 Potassium Level 3.4 Chloride Level 112 Carbon Dioxide Level 26.2 Anion Gap 8 Estimat Glomerular Filtration Rate 44 Date/Time Source Procedure Growth Status 04/09/18 15:00 Wound Chest Gram Stain - Final Resulted 04/09/18 15:00 Wound Culture - Preliminary Gram Negative Maurice Resulted (Cher Freeman) Result Diagram: 04/10/18 1038 04/10/18 1038 Imaging Last Impressions Soft Tissue Ultrasound 04/09/18 0000 Signed Impressions: CONCLUSION: 1. Nonspecific decreased echogenicity and soft tissue changes measuring 3.8 cm in the previous location of patient's defibrillator. Probable scar tissue. (Cher Freeman) Assessment and Plan Problem List: (1) SHABANA (acute kidney injury) ICD Codes: N17.9 - Acute kidney failure, unspecified Plan: Patient has chronic kidney disease, and now develop SHABANA which has been improving. Has chronic Hypokalemia and other electrolyte disorder. BP is stable, Creatinine is improving, now 1.32 with potassium level of 3.4 Will order urine potassium level Continue PO Aldactone Told to eat more the food with K. Creatinine decreased, unlikely to have Lupus Nephritis. (Cher Freeman) Problem List: (1) SHABANA (acute kidney injury) ICD Codes: N17.9 - Acute kidney failure, unspecified Plan: Patient has chronic kidney disease, and now develop SHABANA which has been improving. Has chronic Hypokalemia and other electrolyte disorder. BP is stable, Creatinine is improving, now 1.32 with potassium level of 3.4 Will order urine potassium level Continue PO Aldactone Told to eat more the food with K. Creatinine decreased, unlikely to have Lupus Nephritis. Patient seen and examined, agree with above. Creatinine improving and K is normal. (Torie Arrieta MD) Cher Freeman Apr 10, 2018 16:28 Torie Arrieta MD Apr 11, 2018 00:02
[2018-04-10 20:28] VITALS: BP 102/54; PULSE 78; RESP 18; TEMP 99; O2SAT 97
[2018-04-10] MEDS: PANTOPRAZOLE SOD 40 MG DELAYED RELEASE TAB PO SCH (20:38)
[2018-04-11 00:29] VITALS: BP 105/51; PULSE 72; RESP 18; TEMP 98.7; O2SAT 96
[2018-04-11] MEDS: MORPHINE SULFATE 4 MG/ML INJ IV PRN ×5 (03:23→21:06)
[2018-04-11 05:01] VITALS: BP 119/56; PULSE 66; RESP 18; TEMP 98.6; O2SAT 98
[2018-04-11] MEDS: LEVOTHYROXINE SODIUM 112 MCG TAB PO SCH (06:02)
[2018-04-11] MEDS: MORPHINE SULFATE 15 MG CONTROLLED RELEASE TAB PO SCH ×3 (06:02→21:05)
[2018-04-11] MEDS: DIAZEPAM 10 MG TAB PO PRN ×3 (06:04→21:05)
[2018-04-11 07:16] LABS: AUTOMATED NEUTROPHIL # 4.4 TH/MM3 (1.8-7.7); BASOPHIL # 0.1 TH/MM3 (0-0.2); BASOPHIL % 0.9 % (0.0-2.0); EOSINOPHIL # 0.6 TH/MM3 (0-0.4); EOSINOPHIL % 6.9 % (0.0-4.0); HEMOGLOBIN 10.6 GM/DL (11.6-15.3); LYMPH % 30.7 % (9.0-44.0); LYMPHOCYTE # 2.5 TH/MM3 (1.0-4.8); MEAN CELL VOLUME 84.9 FL (80.0-100.0); MEAN CORPUSCULAR HEMOGLOBIN 29.1 PG (27.0-34.0); MEAN CORPUSCULAR HGB CONC 34.2 % (32.0-36.0); MONO % 6.9 % (0.0-8.0); MONOCYTE # 0.6 TH/MM3 (0-0.9); NEUT % 54.6 % (16.0-70.0); PLATELET COUNT 128 TH/MM3 (150-450); RED BLOOD COUNT 3.64 MIL/MM3 (4.00-5.30); RED CELL DISTRIBUTION WIDTH 14.8 % (11.6-17.2); WHITE BLOOD COUNT 8.1 TH/MM3 (4.0-11.0)
[2018-04-11] MEDS: SODIUM CHLOR 0.9% 1000 ML INJ 1,000 ML IV SCH ×2 (07:21→17:01)
[2018-04-11 07:40] LABS: ALBUMIN 3.2 GM/DL (3.4-5.0); AST (GOT) 10 U/L (15-37); BLOOD UREA NITROGEN 16 MG/DL (7-18); CALCIUM 8.6 MG/DL (8.5-10.1); CHLORIDE 111 MEQ/L (98-107); CREATININE 1.23 MG/DL (0.50-1.00); GLOMERULAR FILTRATION RATE 48 ML/MIN (>89); GLUCOSE,RANDOM 85 MG/DL (74-106); SODIUM (NA) 144 MEQ/L (136-145)
[2018-04-11 07:41] LABS: ALT (GPT) 12 U/L (10-53)
[2018-04-11 07:43] LABS: ALKALINE PHOSPHATASE 44 U/L (45-117); TOTAL BILIRUBIN ADULT 0.2 MG/DL (0.2-1.0); TOTAL PROTEIN 5.7 GM/DL (6.4-8.2)
[2018-04-11 08:00] VITALS: BP 122/56; PULSE 75; RESP 16; TEMP 98; O2SAT 99
[2018-04-11] MEDS: SPIRONOLACTONE 25 MG TAB PO SCH (08:38)
[2018-04-11] MEDS: predniSONE 10 MG TAB PO SCH (08:38)
[2018-04-11] MEDS: FERROUS SULFATE 325 MG (65 MG ELEMENTAL IRON) TAB PO SCH ×2 (08:38→16:41)
[2018-04-11] MEDS: SODIUM CHLORIDE 0.9% FLUSH 10 ML FLUSH IV FLUSH SCH ×2 (08:38→21:00)
[2018-04-11] MEDS: MAGNESIUM OXIDE 400 MG TAB PO SCH (08:38)
[2018-04-11] MEDS: DOCUSATE SODIUM 50 MG/SENNA 8.6 MG TAB PO SCH ×2 (08:38→21:00)
[2018-04-11 12:00] VITALS: BP 144/65; PULSE 64; RESP 17; TEMP 98.4; O2SAT 98
--- NOTE | 2018-04-11 14:44 | HHI.NPPN ---
Subjective Renal Failure: Acute History of Present Illness This is a 42-year-old female with past medical history of chronic hypokalemia, history of chronic kidney disease with recurrent acute kidney injury, per records lupus, brugada syndrome, s/p AICD Placement and Removal due to Infection, s/p Wound VAC Placement and Removal, on LifeVest, CKD Stage III, and Anxiety. Presented to [facility] emergency room w/ complaints of foul-smelling drainage from left chest wall. Nephrology is consulted for acute kidney injury and persistent hypokalemia with a creatinine of 1.32 on day of consult as elevated as 2.53 on 03/08. Potassium level has been at 2.3 and 2.5 however today has improved to 3.4. She has been on Aldactone for chronic hypokalemia. Additional Remarks Reports fatigue and pain. Denies any shortness of breath. (Cher Freeman) Review of Systems General Constitutional: Fatigue General Remarks Pain (Cher Freeman) Respiratory Respiratory Remarks Denies any shortness of breath (Cher Freeman) Gastrointestinal GI Remarks Denies any abdominal pain (Cher Freeman) Objective Data Data Vital Signs Date Time Temp Pulse Resp B/P (MAP) Pulse Ox O2 Delivery O2 Flow Rate FiO2 04/11/18 12:00 98.4 64 17 144/65 (91) 98 04/11/18 08:00 98.0 75 16 122/56 (78) 99 04/11/18 05:01 98.6 66 18 119/56 (77) 98 04/11/18 00:29 98.7 72 18 105/51 (69) 96 04/10/18 20:28 99.0 78 18 102/54 (70) 97 04/10/18 16:00 98.6 75 18 140/60 (86) 99 (Cher Freeman) -: 04/11/18 0622 04/11/18 0622 Imaging Last Impressions Soft Tissue Ultrasound 04/09/18 0000 Signed Impressions: CONCLUSION: 1. Nonspecific decreased echogenicity and soft tissue changes measuring 3.8 cm in the previous location of patient's defibrillator. Probable scar tissue. (Cher Freeman) Physical Exam General Appearance: Well Nourished, No Acute Distress, Anxious (Cher Freeman) Pulmonary Resp Exam: Clear Bilaterally, Breath Sounds Equal, No Distress (Cher Freeman) Cardiology CV Exam: Regular, Normal Sinus Rhythm (Cher Freeman) Gastrointestinal/Abdomen GI Exam: Soft, Non-Tender, Bowel Sounds Present (Cher Freeman) Integumentary Skin Exam: Clear, Warm (Cher Freeman) Neurologic Neuro Exam: Alert, Awake (Cher Freeman) Psychiatric Psych Exam: Appropriate Responses (Cher Freeman) Assessment/Plan Problem List: (1) SHABANA (acute kidney injury) ICD Codes: N17.9 - Acute kidney failure, unspecified Plan: Patient has chronic kidney disease, and now develop SHABANA which has been improving. Has chronic Hypokalemia and other electrolyte disorder. BP is stable, Creatinine is improving, now 1.23 from 1.32 Hypokalemia with potassium level of 3.1 Potassium losses not renal related with low urine potassium. Continue PO Aldactone Told to eat more the food with K. (Cher Freeman) Problem List: (1) SHABANA (acute kidney injury) ICD Codes: N17.9 - Acute kidney failure, unspecified Plan: Patient has chronic kidney disease, and now develop SHABANA which has been improving. Has chronic Hypokalemia and other electrolyte disorder. BP is stable, Creatinine is improving, now 1.23 from 1.32 Hypokalemia with potassium level of 3.1 Potassium losses not renal related with low urine potassium. Continue PO Aldactone Told to eat more the food with K. Patient seen and examined, agree with above. Creatinine is better, unlikely has active lupus. Continue to eat more K in the diet. (Torie Arrieta MD) Cher Freeman Apr 11, 2018 14:43 Torie Arrieta MD Apr 12, 2018 13:50
--- NOTE | 2018-04-11 14:57 | HHI.PR ---
Subjective Remarks 6-5 The patient states that she feels weak Denies fevers or chills. Denies diarrhea. Still complains of some pain in the left side of the chest around her wound area. 6-6 POTASSIUM NOT IMPROVED YET NEEDS TO TAKE IN MORE PO POTASSIUM DW RN AND PT AM LABS POSSIBLE DC TOMORROW IF IS STABLE Objective Vitals Vital Signs Date Time Temp Pulse Resp B/P (MAP) Pulse Ox O2 Delivery O2 Flow Rate FiO2 04/11/18 12:00 98.4 64 17 144/65 (91) 98 04/11/18 08:00 98.0 75 16 122/56 (78) 99 04/11/18 05:01 98.6 66 18 119/56 (77) 98 04/11/18 00:29 98.7 72 18 105/51 (69) 96 04/10/18 20:28 99.0 78 18 102/54 (70) 97 04/10/18 16:00 98.6 75 18 140/60 (86) 99 I/O 04/10/18 04/10/18 04/10/18 04/11/18 04/11/18 04/11/18 07:00 15:00 23:00 07:00 15:00 23:00 Intake Total 760 ml 100 ml 1740 ml 360 ml Balance 760 ml 100 ml 1740 ml 360 ml Intake Oral 760 ml 740 ml 360 ml IV Total 100 ml 1000 ml # Voids 3 12 3 # Bowel Movements 1 Result Diagram: 04/11/18 0622 04/11/18 0622 Other Results Laboratory Tests Test 04/08/18 16:30 04/08/18 16:40 04/09/18 00:22 04/09/18 09:58 White Blood Count 9.6 TH/MM3 6.1 TH/MM3 Red Blood Count 4.49 MIL/MM3 3.73 MIL/MM3 Hemoglobin 12.9 GM/DL 10.8 GM/DL Hematocrit 37.9 % 31.8 % Mean Corpuscular Volume 84.4 FL 85.4 FL Mean Corpuscular Hemoglobin 28.6 PG 29.0 PG Mean Corpuscular Hemoglobin Concent 33.9 % 34.0 % Red Cell Distribution Width 14.3 % 14.4 % Platelet Count 154 TH/MM3 118 TH/MM3 Mean Platelet Volume 8.3 FL 8.1 FL Neutrophils (%) (Auto) 74.9 % 50.4 % Lymphocytes (%) (Auto) 14.0 % 32.0 % Monocytes (%) (Auto) 6.5 % 6.4 % Eosinophils (%) (Auto) 3.7 % 10.0 % Basophils (%) (Auto) 0.9 % 1.2 % Neutrophils # (Auto) 7.2 TH/MM3 3.1 TH/MM3 Lymphocytes # (Auto) 1.3 TH/MM3 1.9 TH/MM3 Monocytes # (Auto) 0.6 TH/MM3 0.4 TH/MM3 Eosinophils # (Auto) 0.4 TH/MM3 0.6 TH/MM3 Basophils # (Auto) 0.1 TH/MM3 0.1 TH/MM3 CBC Comment DIFF FINAL DIFF FINAL Differential Comment Prothrombin Time 11.0 SEC Prothromb Time International Ratio 1.1 RATIO Activated Partial Thromboplast Time 21.4 SEC Blood Urea Nitrogen 36 MG/DL 27 MG/DL Creatinine 2.53 MG/DL 1.82 MG/DL Random Glucose 104 MG/DL 129 MG/DL Total Protein 7.7 GM/DL 6.0 GM/DL Albumin 4.3 GM/DL 3.3 GM/DL Calcium Level 9.1 MG/DL 8.1 MG/DL Magnesium Level 2.1 MG/DL 2.0 MG/DL Alkaline Phosphatase 56 U/L 45 U/L Aspartate Amino Transf (AST/SGOT) 17 U/L 13 U/L Alanine Aminotransferase (ALT/SGPT) 16 U/L 12 U/L Total Bilirubin 0.3 MG/DL 0.3 MG/DL Sodium Level 138 MEQ/L 143 MEQ/L Potassium Level 2.4 MEQ/L 3.0 MEQ/L 2.6 MEQ/L Chloride Level 103 MEQ/L 110 MEQ/L Carbon Dioxide Level 21.5 MEQ/L 23.0 MEQ/L Anion Gap 14 MEQ/L 10 MEQ/L Estimat Glomerular Filtration Rate 21 ML/MIN 31 ML/MIN Total Creatine Kinase 61 U/L Troponin I LESS THAN 0.02 NG/ML Urine Color YELLOW Urine Turbidity HAZY Urine pH 6.0 Urine Specific [place] 1.017 Urine Protein TRACE mg/dL Urine Glucose (UA) NEG mg/dL Urine Ketones NEG mg/dL Urine Occult Blood NEG Urine Nitrite NEG Urine Bilirubin NEG Urine Urobilinogen LESS THAN 2.0 MG/DL Urine Leukocyte Esterase NEG Urine RBC LESS THAN 1 /hpf Urine WBC 1 /hpf Urine Squamous Epithelial Cells 7 /hpf Urine Hyaline Casts 13 /lpf Urine Mucus FEW /lpf Microscopic Urinalysis Comment CULT NOT INDICATED Test 04/10/18 10:38 04/11/18 06:22 04/11/18 11:25 White Blood Count 6.6 TH/MM3 8.1 TH/MM3 Red Blood Count 3.80 MIL/MM3 3.64 MIL/MM3 Hemoglobin 10.9 GM/DL 10.6 GM/DL Hematocrit 32.7 % 31.0 % Mean Corpuscular Volume 86.0 FL 84.9 FL Mean Corpuscular Hemoglobin 28.8 PG 29.1 PG Mean Corpuscular Hemoglobin Concent 33.5 % 34.2 % Red Cell Distribution Width 14.4 % 14.8 % Platelet Count 133 TH/MM3 128 TH/MM3 Mean Platelet Volume 8.3 FL 8.0 FL Neutrophils (%) (Auto) 58.9 % 54.6 % Lymphocytes (%) (Auto) 24.8 % 30.7 % Monocytes (%) (Auto) 7.0 % 6.9 % Eosinophils (%) (Auto) 8.1 % 6.9 % Basophils (%) (Auto) 1.2 % 0.9 % Neutrophils # (Auto) 3.9 TH/MM3 4.4 TH/MM3 Lymphocytes # (Auto) 1.6 TH/MM3 2.5 TH/MM3 Monocytes # (Auto) 0.5 TH/MM3 0.6 TH/MM3 Eosinophils # (Auto) 0.5 TH/MM3 0.6 TH/MM3 Basophils # (Auto) 0.1 TH/MM3 0.1 TH/MM3 CBC Comment DIFF FINAL DIFF FINAL Differential Comment Blood Urea Nitrogen 18 MG/DL 16 MG/DL Creatinine 1.32 MG/DL 1.23 MG/DL Random Glucose 88 MG/DL 85 MG/DL Total Protein 6.1 GM/DL 5.7 GM/DL Albumin 3.3 GM/DL 3.2 GM/DL Calcium Level 8.4 MG/DL 8.6 MG/DL Alkaline Phosphatase 46 U/L 44 U/L Aspartate Amino Transf (AST/SGOT) 11 U/L 10 U/L Alanine Aminotransferase (ALT/SGPT) 13 U/L 12 U/L Total Bilirubin 0.2 MG/DL 0.2 MG/DL Sodium Level 146 MEQ/L 144 MEQ/L Potassium Level 3.4 MEQ/L 3.1 MEQ/L Chloride Level 112 MEQ/L 111 MEQ/L Carbon Dioxide Level 26.2 MEQ/L 24.0 MEQ/L Anion Gap 8 MEQ/L 9 MEQ/L Estimat Glomerular Filtration Rate 44 ML/MIN 48 ML/MIN Urine Random Potassium 9 MEQ/L Imaging Last Impressions Soft Tissue Ultrasound 04/09/18 0000 Signed Impressions: CONCLUSION: 1. Nonspecific decreased echogenicity and soft tissue changes measuring 3.8 cm in the previous location of patient's defibrillator. Probable scar tissue. Objective Remarks GENERAL: Awake alert and oriented 3 talkative and cooperative very talkative SKIN: Warm and dry. HEAD: Atraumatic. Normocephalic. EYES: Pupils equal and round. No scleral icterus. No injection or drainage. Extraocular muscles intact ENT: No nasal bleeding or discharge. Mucous membranes pink and moist. Tongue is midline NECK: Trachea midline. No JVD. Supple CARDIOVASCULAR: Regular rate and rhythm. S1-S2 no S3-S4 RESPIRATORY: No accessory muscle use. Clear to auscultation. Breath sounds equal bilaterally. GASTROINTESTINAL: Abdomen soft, non-tender, nondistended. Hepatic and splenic margins not palpable. MUSCULOSKELETAL: Extremities without clubbing, cyanosis, or edema. No obvious deformities. NEUROLOGICAL: Awake and alert. No obvious cranial nerve deficits. Motor grossly within normal limits. Five out of 5 muscle strength in the arms and legs. Normal speech. PSYCHIATRIC: INAppropriate mood and affect; insight and judgment ABnormal. Medications and IVs Current Medications Sodium Chloride (NS Flush) 2 ml UNSCH PRN IVF FLUSH AFTER USING IV ACCESS Last administered on 04/08/18at 16:50; Start 04/08/18 at 16:00 Sodium Chloride 1,000 ml @ 1,000 mls/hr Q1H ONCE IV Last administered on at 16:50; Start 04/08/18 at 15:46; Stop 04/08/18 at 16:45; Status DC Acetaminophen (Tylenol) 500 mg ONCE ONCE PO Last administered on 04/08/18at 17: 47; Start 04/08/18 at 17:15; Stop 04/08/18 at 17:16; Status DC Potassium Chloride (KCl) 40 meq ONCE ONCE PO Last administered on 04/08/18at 17: 47; Start 04/08/18 at 17:30; Stop 04/08/18 at 17:31; Status DC Potassium Chloride 100 ml @ 50 mls/hr BOLUS ONCE IV Last administered on at 17:47; Start 04/08/18 at 17:30; Stop 04/08/18 at 19:29; Status DC Sodium Chloride 500 ml @ 500 mls/hr BOLUS ONCE IV Last administered on at 17:46; Start 04/08/18 at 17:45; Stop 04/08/18 at 17:50; Status DC Sodium Chloride 500 ml @ 50 mls/hr ONCE ONCE IV ; Start 04/08/18 at 18:00; Stop 04/09/18 at 03:59; Status DC Morphine Sulfate (Morphine Inj) 4 mg ONCE ONCE IV PUSH Last administered on 04/08/18at 18:11; Start 04/08/18 at 18:00; Stop 04/08/18 at 18:01; Status DC Sodium Chloride 1,000 ml @ 100 mls/hr Q10H IV Last administered on 04/11/18at 07 :21; Start 04/08/18 at 19:18 Sodium Chloride (NS Flush) 2 ml UNSCH PRN IV FLUSH FLUSH AFTER USING IV ACCESS ; Start 04/08/18 at 19:30 Sodium Chloride (NS Flush) 2 ml BID IV FLUSH Last administered on 04/11/18at 08: 38; Start 04/08/18 at 21:00 Metoclopramide HCl (Reglan Inj) 5 mg Q6H PRN IV PUSH NAUSEA OR VOMITING; Start 04/08/18 at 19:30 Acetaminophen (Tylenol) 650 mg Q6H PRN PO FEVER/PAIN SCALE 1 TO 2; Start at 19:30 Acetaminophen/ Hydrocodone Bitart ([place] 5-325 Mg) 1 tab Q4H PRN PO PAIN SCALE 3 TO 5; Start 04/08/18 at 19:30 Morphine Sulfate (Morphine Inj) 2 mg Q3H PRN IV PUSH Pain 6-10; Start 04/08/18 at 19:30; Stop 04/08/18 at 20:59; Status DC Senna/Docusate Sodium (Irais-Colace) 1 tab BID PO ; Start 04/08/18 at 21:00 Magnesium Hydroxide (Milk Of Magnesia Liq) 30 ml Q12H PRN PO Mild constipation ; Start 04/08/18 at 19:30 Sennosides (Senokot) 17.2 mg Q12H PRN PO Moderate constipation; Start 04/08/18 at 19:30 Bisacodyl (Dulcolax Supp) 10 mg DAILY PRN RECTAL SEVERE CONSITIPATION; Start at 19:30 Lactulose (Lactulose Liq) 30 ml DAILY PRN PO SEVERE CONSITIPATION; Start at 19:30 Diazepam (Valium) 10 mg TID PRN PO muscle spasm Last administered on 04/11/18 13:45; Start 04/08/18 at 19:30 Ferrous Sulfate (Ferrous Sulfate) 325 mg BIDPC PO Last administered on 08:38; Start 04/09/18 at 09:00 Levothyroxine Sodium (Synthroid) 112 mcg DAILY@0600 PO Last administered on 04/11 06:02; Start 04/09/18 at 06:00 Magnesium Oxide (Mag-Ox) 400 mg DAILY PO Last administered on 04/11/18 08:38; Start 04/09/18 at 09:00 Morphine Sulfate (Oramorph Sr) 15 mg Q8HR PO Last administered on 04/11/18 13: 49; Start 04/08/18 at 22:00 Pantoprazole Sodium (Protonix) 40 mg HS PO Last administered on 04/10/18 20:38 ; Start 04/08/18 at 21:00 Prednisone (Deltasone) 30 mg DAILY PO Last administered on 04/11/18 08:38; Start 04/09/18 at 09:00 Spironolactone (Aldactone) 25 mg DAILY PO Last administered on 04/11/18 08:38; Start 04/09/18 at 09:00 Morphine Sulfate (Morphine Inj) 2 mg Q3H PRN IV Pain 6-10 Last administered on 04/11/18 11:05; Start 04/08/18 at 21:00 Potassium Chloride (KCl) 60 meq ONCE ONCE PO Last administered on 04/09/18 14: 10; Start 04/09/18 at 13:30; Stop 04/09/18 at 13:47; Status DC Potassium Chloride 100 ml @ 50 mls/hr Q2H IV Last administered on 6/4/18at 14: 10; Start 04/09/18 at 13:30; Stop 04/09/18 at 17:29; Status DC Potassium Chloride 100 ml @ 50 mls/hr Q2H IV Last administered on 04/09/18at 22: 52; Start 04/09/18 at 22:45; Stop 04/10/18 at 00:44; Status DC Potassium Chloride (KCl) 40 meq ONCE ONCE PO Last administered on 04/10/18at 13: 30; Start 04/10/18 at 13:00; Stop 04/10/18 at 13:04; Status DC Silver Nitrate/ Potassium Nitrate (Silver Nitrate Applicators) 1 appl UNSCH PRN TOPICAL DRESSING CHANGES; Start 04/10/18 at 15:45 A/P Problem List: (1) Hypokalemia ICD Code: E87.6 - Hypokalemia (2) SHABANA (acute kidney injury) ICD Code: N17.9 - Acute kidney failure, unspecified (3) Wound infection ICD Code: T14.8XXA - Other injury of unspecified body region, initial encounter ; L08.9 - Local infection of the skin and subcutaneous tissue, unspecified (4) Brugada syndrome ICD Code: I49.8 - Other specified cardiac arrhythmias Status: Chronic Assessment and Plan 1. Hypokalemia: K+ 2.4, s/p replacement in ER, will recheck K+ and Mg tonight , replace as needed, telemetry for possible arrhythmia. 04/09 the patient still with severe hypokalemia with a K of 2.6. We will replace orally with potassium 60 mEq p.o. and with KCl 40 mEq IV. Monitor BMP and replace aggressively. I will consult nephrology since the patient states that she has been having persistent hypokalemia at home. 04/10 hypokalemia is greatly improved. Nephrology consult still pending. We will continue to replace orally and monitor BMP. 2. SHABANA: Creatinine 2.53, previously 1.87 on 03/14/18, U/a w/ no UTI, IVF for hydration, repeat labs in am, monitor I/O. 04/09 creatinine trending down, down to 1.82. Upon review of records baseline creatinine seems to be between 1.7 and 1.8. Continue IV fluid. 04/10 resolved after IV fluid administration. Creatinine down to 1.32. Continue to monitor BMP. Nephrology consultation pending. 3. Wound Infection: h/o AICD Placement w/ Infection, s/p removal and placement of Wound VAC w/ removal on 03/14/18, completed treatment w/ Zyvox 600mg bid, today notes foul-smelling drainage from wound site, no leukocytosis, low- grade temp on arrival, will hold off on antibiotic therapy at this time, Consult Dr. Nichols with whom she follows for further recommendations to initiate antibiotics or not. Wound Consult for dressing changes. 04/09 patient is afebrile without any major signs of infection. Discussed the case with wound care nurse who states there was not much discharge from the wound. We will continue to hold off on antibiotics. ID consult pending. 04/10 ID consultation appreciated. Discussed the case with Dr. HALL who recommends observation off antibiotics. ID signed off. 4. Brugada Syndrome: currently on LifeVest as AICD removed due to infection, no events noted. Follows w/ Dr. Cervantes as outpatient, will consult if needed. 5. DVT Prophylaxis: SCD/Teds 6. Social work for d/c planning as needed HOME TOMORROW IF POTASSIUM STABLE Discharge Planning IF POTASSIUM STABLE DC TO HOME TOMORROW Nathaniel Sun DO Apr 11, 2018 14:57
[2018-04-11 16:00] VITALS: BP 135/63; PULSE 69; RESP 18; TEMP 98.6; O2SAT 99
[2018-04-11 20:00] VITALS: BP 143/70; PULSE 67; PULSE 71; RESP 18; TEMP 98.2; O2SAT 99
[2018-04-11] MEDS: PANTOPRAZOLE SOD 40 MG DELAYED RELEASE TAB PO SCH (21:04)
[2018-04-12] VITALS: BP 127/56; PULSE 80; RESP 18; TEMP 97.9; O2SAT 99
[2018-04-12] MEDS: MORPHINE SULFATE 4 MG/ML INJ IV PRN ×2 (03:06→08:22)
[2018-04-12] MEDS: SODIUM CHLOR 0.9% 1000 ML INJ 1,000 ML IV SCH (03:09)
[2018-04-12 04:00] VITALS: BP 115/58; PULSE 78; RESP 18; TEMP 98.1; O2SAT 99
[2018-04-12] MEDS: DIAZEPAM 10 MG TAB PO PRN ×2 (05:18→12:21)
[2018-04-12] MEDS: LEVOTHYROXINE SODIUM 112 MCG TAB PO SCH (05:18)
[2018-04-12] MEDS: MORPHINE SULFATE 15 MG CONTROLLED RELEASE TAB PO SCH ×2 (05:20→13:46)
[2018-04-12 08:00] VITALS: BP 124/57; PULSE 64; RESP 16; TEMP 98.2; O2SAT 99
[2018-04-12] MEDS: FERROUS SULFATE 325 MG (65 MG ELEMENTAL IRON) TAB PO SCH ×2 (08:22→17:21)
[2018-04-12] MEDS: SODIUM CHLORIDE 0.9% FLUSH 10 ML FLUSH IV FLUSH SCH (08:23)
[2018-04-12] MEDS: DOCUSATE SODIUM 50 MG/SENNA 8.6 MG TAB PO SCH (08:23)
[2018-04-12] MEDS: predniSONE 10 MG TAB PO SCH (08:23)
[2018-04-12] MEDS: SPIRONOLACTONE 25 MG TAB PO SCH (08:23)
[2018-04-12] MEDS: MAGNESIUM OXIDE 400 MG TAB PO SCH (08:23)
[2018-04-12 08:46] LABS: AUTOMATED NEUTROPHIL # 2.9 TH/MM3 (1.8-7.7); BASOPHIL % 0.8 % (0.0-2.0); EOSINOPHIL # 0.4 TH/MM3 (0-0.4); EOSINOPHIL % 7.1 % (0.0-4.0); HEMATOCRIT 29.6 % (35.0-46.0); LYMPH % 35.4 % (9.0-44.0); LYMPHOCYTE # 2.1 TH/MM3 (1.0-4.8); MEAN CELL VOLUME 85.6 FL (80.0-100.0); MEAN CORPUSCULAR HEMOGLOBIN 28.9 PG (27.0-34.0); MEAN CORPUSCULAR HGB CONC 33.8 % (32.0-36.0); MEAN PLATELET VOLUME 8.8 FL (7.0-11.0); MONO % 8.1 % (0.0-8.0); MONOCYTE # 0.5 TH/MM3 (0-0.9); NEUT % 48.6 % (16.0-70.0); PLATELET COUNT 105 TH/MM3 (150-450); RED BLOOD COUNT 3.46 MIL/MM3 (4.00-5.30); RED CELL DISTRIBUTION WIDTH 14.9 % (11.6-17.2); WHITE BLOOD COUNT 5.9 TH/MM3 (4.0-11.0)
[2018-04-12 09:19] LABS: ALBUMIN 2.8 GM/DL (3.4-5.0); ALKALINE PHOSPHATASE 42 U/L (45-117); ALT (GPT) 12 U/L (10-53); AST (GOT) 24 U/L (15-37); BICARBONATE 24.6 MEQ/L (21.0-32.0); BLOOD UREA NITROGEN 14 MG/DL (7-18); CALCIUM 7.8 MG/DL (8.5-10.1); CHLORIDE 109 MEQ/L (98-107); CREATININE 1.06 MG/DL (0.50-1.00); FREE T4 1.04 NG/DL (0.76-1.46); GLOMERULAR FILTRATION RATE 57 ML/MIN (>89); GLUCOSE,RANDOM 65 MG/DL (74-106); MAGNESIUM 1.5 MG/DL (1.5-2.5); PHOSPHORUS 2.8 MG/DL (2.5-4.9); SODIUM (NA) 142 MEQ/L (136-145); TOTAL BILIRUBIN ADULT 0.2 MG/DL (0.2-1.0); TOTAL PROTEIN 5.5 GM/DL (6.4-8.2)
--- NOTE | 2018-04-12 09:26 | HHI.NPPN ---
Subjective Renal Failure: Acute History of Present Illness This is a 42-year-old female with past medical history of chronic hypokalemia, history of chronic kidney disease with recurrent acute kidney injury, per records lupus, brugada syndrome, s/p AICD Placement and Removal due to Infection, s/p Wound VAC Placement and Removal, on LifeVest, CKD Stage III, and Anxiety. Presented to [facility] emergency room w/ complaints of foul-smelling drainage from left chest wall. Nephrology is consulted for acute kidney injury and persistent hypokalemia with a creatinine of 1.32 on day of consult as elevated as 2.53 on 03/08. Potassium level has been at 2.3 and 2.5 however today has improved to 3.4. She has been on Aldactone for chronic hypokalemia. Additional Remarks Reports mild shortness of breath. No acute complaints. (Cher rFeeman) Review of Systems General Constitutional: Fatigue General Remarks Pain (Cher Freeman) Respiratory Respiratory Remarks Denies any shortness of breath (Cher Freeman) Gastrointestinal GI Remarks Denies any abdominal pain (Cher Freeman) Objective Data Data Vital Signs Date Time Temp Pulse Resp B/P (MAP) Pulse Ox O2 Delivery O2 Flow Rate FiO2 04/12/18 08:00 98.2 64 16 124/57 (79) 99 04/12/18 04:00 98.1 78 18 115/58 (77) 99 04/12/18 00:00 97.9 80 18 127/56 (79) 99 04/11/18 20:00 98.2 71 18 143/70 (94) 99 04/11/18 20:00 67 04/11/18 16:00 98.6 69 18 135/63 (87) 99 04/11/18 12:00 98.4 64 17 144/65 (91) 98 (Cher Freeman) -: 04/12/18 0713 04/12/18 0713 Physical Exam General Appearance: Well Nourished, No Acute Distress, Anxious (Cher Freeman) Pulmonary Resp Exam: Clear Bilaterally, Breath Sounds Equal, No Distress (Cher Freeman) Cardiology CV Exam: Regular, Normal Sinus Rhythm (Cher Freeman) Gastrointestinal/Abdomen GI Exam: Soft, Non-Tender, Bowel Sounds Present (Cher Freeman) Integumentary Skin Exam: Clear, Warm (Cher Freeman) Neurologic Neuro Exam: Alert, Awake (Cher Freeman) Psychiatric Psych Exam: Appropriate Responses (Cher Freeman) Assessment/Plan Problem List: (1) SHABANA (acute kidney injury) ICD Codes: N17.9 - Acute kidney failure, unspecified Plan: Patient has chronic kidney disease, and now develop SHABANA which has been improving. Has chronic Hypokalemia and other electrolyte disorder. Potassium losses not renal related with low urine potassium. Continue current dose of Aldactone. Creatinine is improving, now 1.06 Hypokalemia resolved at 3.6 today. Will discontinue IVF"s taking PO well Nephrology will sign off if needed please reconsult. (Cher Freeman) Problem List: (1) SHABANA (acute kidney injury) ICD Codes: N17.9 - Acute kidney failure, unspecified Plan: Patient has chronic kidney disease, and now develop SHABANA which has been improving. Has chronic Hypokalemia and other electrolyte disorder. Potassium losses not renal related with low urine potassium. Continue current dose of Aldactone. Creatinine is improving, now 1.06 Hypokalemia resolved at 3.6 today. Will discontinue IVF"s taking PO well Nephrology will sign off if needed please reconsult. Patient seen and examined, agree with above. To follow with her PCP and Executive Chef Assistant. (Torie Arrieta MD) Cher Freeman Apr 12, 2018 09:26 Torie Arrieta MD Apr 12, 2018 13:54
--- NOTE | 2018-04-12 11:52 | HHI.PR ---
Subjective Remarks 6-5 The patient states that she feels weak Denies fevers or chills. Denies diarrhea. Still complains of some pain in the left side of the chest around her wound area. 6-6 POTASSIUM NOT IMPROVED YET NEEDS TO TAKE IN MORE PO POTASSIUM DW RN AND PT AM LABS POSSIBLE DC TOMORROW IF IS STABLE 6-7 CLEARED BY ID AND NEPHROLOGY NEEDS TO EAT CORRECTLY DC TO HOME TODAY DC IV DW RN AND PT AND CM Objective Vitals Vital Signs Date Time Temp Pulse Resp B/P (MAP) Pulse Ox O2 Delivery O2 Flow Rate FiO2 04/12/18 08:00 98.2 64 16 124/57 (79) 99 04/12/18 04:00 98.1 78 18 115/58 (77) 99 04/12/18 00:00 97.9 80 18 127/56 (79) 99 04/11/18 20:00 98.2 71 18 143/70 (94) 99 04/11/18 20:00 67 04/11/18 16:00 98.6 69 18 135/63 (87) 99 04/11/18 12:00 98.4 64 17 144/65 (91) 98 I/O 04/11/18 04/11/18 04/11/18 04/12/18 04/12/18 04/12/18 07:00 15:00 23:00 07:00 15:00 23:00 Intake Total 360 ml 1320 ml 1720 ml Balance 360 ml 1320 ml 1720 ml Intake Oral 360 ml 1320 ml 720 ml IV Total 1000 ml # Voids 3 8 6 # Bowel Movements 1 Result Diagram: 04/12/18 0713 04/12/18 0713 Other Results Laboratory Tests Test 04/10/18 10:38 04/11/18 06:22 04/11/18 11:25 04/12/18 07:13 White Blood Count 6.6 TH/MM3 8.1 TH/MM3 5.9 TH/MM3 Red Blood Count 3.80 MIL/MM3 3.64 MIL/MM3 3.46 MIL/MM3 Hemoglobin 10.9 GM/DL 10.6 GM/DL 10.0 GM/DL Hematocrit 32.7 % 31.0 % 29.6 % Mean Corpuscular Volume 86.0 FL 84.9 FL 85.6 FL Mean Corpuscular Hemoglobin 28.8 PG 29.1 PG 28.9 PG Mean Corpuscular Hemoglobin Concent 33.5 % 34.2 % 33.8 % Red Cell Distribution Width 14.4 % 14.8 % 14.9 % Platelet Count 133 TH/MM3 128 TH/MM3 105 TH/MM3 Mean Platelet Volume 8.3 FL 8.0 FL 8.8 FL Neutrophils (%) (Auto) 58.9 % 54.6 % 48.6 % Lymphocytes (%) (Auto) 24.8 % 30.7 % 35.4 % Monocytes (%) (Auto) 7.0 % 6.9 % 8.1 % Eosinophils (%) (Auto) 8.1 % 6.9 % 7.1 % Basophils (%) (Auto) 1.2 % 0.9 % 0.8 % Neutrophils # (Auto) 3.9 TH/MM3 4.4 TH/MM3 2.9 TH/MM3 Lymphocytes # (Auto) 1.6 TH/MM3 2.5 TH/MM3 2.1 TH/MM3 Monocytes # (Auto) 0.5 TH/MM3 0.6 TH/MM3 0.5 TH/MM3 Eosinophils # (Auto) 0.5 TH/MM3 0.6 TH/MM3 0.4 TH/MM3 Basophils # (Auto) 0.1 TH/MM3 0.1 TH/MM3 0.0 TH/MM3 CBC Comment DIFF FINAL DIFF FINAL DIFF FINAL Differential Comment Blood Urea Nitrogen 18 MG/DL 16 MG/DL 14 MG/DL Creatinine 1.32 MG/DL 1.23 MG/DL 1.06 MG/DL Random Glucose 88 MG/DL 85 MG/DL 65 MG/DL Total Protein 6.1 GM/DL 5.7 GM/DL 5.5 GM/DL Albumin 3.3 GM/DL 3.2 GM/DL 2.8 GM/DL Calcium Level 8.4 MG/DL 8.6 MG/DL 7.8 MG/DL Alkaline Phosphatase 46 U/L 44 U/L 42 U/L Aspartate Amino Transf (AST/SGOT) 11 U/L 10 U/L 24 U/L Alanine Aminotransferase (ALT/SGPT) 13 U/L 12 U/L 12 U/L Total Bilirubin 0.2 MG/DL 0.2 MG/DL 0.2 MG/DL Sodium Level 146 MEQ/L 144 MEQ/L 142 MEQ/L Potassium Level 3.4 MEQ/L 3.1 MEQ/L 3.6 MEQ/L Chloride Level 112 MEQ/L 111 MEQ/L 109 MEQ/L Carbon Dioxide Level 26.2 MEQ/L 24.0 MEQ/L 24.6 MEQ/L Anion Gap 8 MEQ/L 9 MEQ/L 8 MEQ/L Estimat Glomerular Filtration Rate 44 ML/MIN 48 ML/MIN 57 ML/MIN Urine Random Potassium 9 MEQ/L Phosphorus Level 2.8 MG/DL Magnesium Level 1.5 MG/DL Free Thyroxine 1.04 NG/DL Thyroid Stimulating Hormone 3rd Gen 1.110 uIU/ML Imaging Last Impressions Soft Tissue Ultrasound 04/09/18 0000 Signed Impressions: CONCLUSION: 1. Nonspecific decreased echogenicity and soft tissue changes measuring 3.8 cm in the previous location of patient's defibrillator. Probable scar tissue. Objective Remarks GENERAL: Awake alert and oriented 3 talkative and cooperative very talkative SKIN: Warm and dry. HEAD: Atraumatic. Normocephalic. EYES: Pupils equal and round. No scleral icterus. No injection or drainage. Extraocular muscles intact ENT: No nasal bleeding or discharge. Mucous membranes pink and moist. Tongue is midline NECK: Trachea midline. No JVD. Supple CARDIOVASCULAR: Regular rate and rhythm. S1-S2 no S3-S4 RESPIRATORY: No accessory muscle use. Clear to auscultation. Breath sounds equal bilaterally. GASTROINTESTINAL: Abdomen soft, non-tender, nondistended. Hepatic and splenic margins not palpable. MUSCULOSKELETAL: Extremities without clubbing, cyanosis, or edema. No obvious deformities. NEUROLOGICAL: Awake and alert. No obvious cranial nerve deficits. Motor grossly within normal limits. Five out of 5 muscle strength in the arms and legs. Normal speech. PSYCHIATRIC: INAppropriate mood and affect; insight and judgment ABnormal. Procedures NONE Medications and IVs Current Medications Sodium Chloride (NS Flush) 2 ml UNSCH PRN IVF FLUSH AFTER USING IV ACCESS Last administered on 04/08/18at 16:50; Start 04/08/18 at 16:00 Sodium Chloride 1,000 ml @ 1,000 mls/hr Q1H ONCE IV Last administered on at 16:50; Start 04/08/18 at 15:46; Stop 04/08/18 at 16:45; Status DC Acetaminophen (Tylenol) 500 mg ONCE ONCE PO Last administered on 04/08/18at 17: 47; Start 04/08/18 at 17:15; Stop 04/08/18 at 17:16; Status DC Potassium Chloride (KCl) 40 meq ONCE ONCE PO Last administered on 04/08/18at 17: 47; Start 04/08/18 at 17:30; Stop 04/08/18 at 17:31; Status DC Potassium Chloride 100 ml @ 50 mls/hr BOLUS ONCE IV Last administered on at 17:47; Start 04/08/18 at 17:30; Stop 04/08/18 at 19:29; Status DC Sodium Chloride 500 ml @ 500 mls/hr BOLUS ONCE IV Last administered on at 17:46; Start 04/08/18 at 17:45; Stop 04/08/18 at 17:50; Status DC Sodium Chloride 500 ml @ 50 mls/hr ONCE ONCE IV ; Start 04/08/18 at 18:00; Stop 04/09/18 at 03:59; Status DC Morphine Sulfate (Morphine Inj) 4 mg ONCE ONCE IV PUSH Last administered on 04/08/18at 18:11; Start 04/08/18 at 18:00; Stop 04/08/18 at 18:01; Status DC Sodium Chloride 1,000 ml @ 100 mls/hr Q10H IV Last administered on 04/12/18at 03 :09; Start 04/08/18 at 19:18; Stop 04/12/18 at 09:25; Status DC Sodium Chloride (NS Flush) 2 ml UNSCH PRN IV FLUSH FLUSH AFTER USING IV ACCESS ; Start 04/08/18 at 19:30 Sodium Chloride (NS Flush) 2 ml BID IV FLUSH Last administered on 04/11/18at 08: 38; Start 04/08/18 at 21:00 Metoclopramide HCl (Reglan Inj) 5 mg Q6H PRN IV PUSH NAUSEA OR VOMITING; Start 04/08/18 at 19:30 Acetaminophen (Tylenol) 650 mg Q6H PRN PO FEVER/PAIN SCALE 1 TO 2; Start at 19:30 Acetaminophen/ Hydrocodone Bitart ([place] 5-325 Mg) 1 tab Q4H PRN PO PAIN SCALE 3 TO 5; Start 04/08/18 at 19:30 Morphine Sulfate (Morphine Inj) 2 mg Q3H PRN IV PUSH Pain 6-10; Start 04/08/18 at 19:30; Stop 04/08/18 at 20:59; Status DC Senna/Docusate Sodium (Irais-Colace) 1 tab BID PO ; Start 04/08/18 at 21:00 Magnesium Hydroxide (Milk Of Magnesia Liq) 30 ml Q12H PRN PO Mild constipation ; Start 04/08/18 at 19:30 Sennosides (Senokot) 17.2 mg Q12H PRN PO Moderate constipation; Start 04/08/18 at 19:30 Bisacodyl (Dulcolax Supp) 10 mg DAILY PRN RECTAL SEVERE CONSITIPATION; Start at 19:30 Lactulose (Lactulose Liq) 30 ml DAILY PRN PO SEVERE CONSITIPATION; Start at 19:30 Diazepam (Valium) 10 mg TID PRN PO muscle spasm Last administered on 04/12/18 05:18; Start 04/08/18 at 19:30 Ferrous Sulfate (Ferrous Sulfate) 325 mg BIDPC PO Last administered on 08:22; Start 04/09/18 at 09:00 Levothyroxine Sodium (Synthroid) 112 mcg DAILY@0600 PO Last administered on 04/12 05:18; Start 04/09/18 at 06:00 Magnesium Oxide (Mag-Ox) 400 mg DAILY PO Last administered on 04/12/18 08:23; Start 04/09/18 at 09:00 Morphine Sulfate (Oramorph Sr) 15 mg Q8HR PO Last administered on 04/12/18 05: 20; Start 04/08/18 at 22:00 Pantoprazole Sodium (Protonix) 40 mg HS PO Last administered on 04/11/18at 21:04 ; Start 04/08/18 at 21:00 Prednisone (Deltasone) 30 mg DAILY PO Last administered on 04/12/18 08:23; Start 04/09/18 at 09:00 Spironolactone (Aldactone) 25 mg DAILY PO Last administered on 04/12/18 08:23; Start 04/09/18 at 09:00 Morphine Sulfate (Morphine Inj) 2 mg Q3H PRN IV Pain 6-10 Last administered on 04/12/18at 08:22; Start 04/08/18 at 21:00 Potassium Chloride (KCl) 60 meq ONCE ONCE PO Last administered on 04/09/18at 14: 10; Start 04/09/18 at 13:30; Stop 04/09/18 at 13:47; Status DC Potassium Chloride 100 ml @ 50 mls/hr Q2H IV Last administered on 04/09/18at 14: 10; Start 04/09/18 at 13:30; Stop 04/09/18 at 17:29; Status DC Potassium Chloride 100 ml @ 50 mls/hr Q2H IV Last administered on 04/09/18at 22: 52; Start 04/09/18 at 22:45; Stop 04/10/18 at 00:44; Status DC Potassium Chloride (KCl) 40 meq ONCE ONCE PO Last administered on 04/10/18at 13: 30; Start 04/10/18 at 13:00; Stop 04/10/18 at 13:04; Status DC Silver Nitrate/ Potassium Nitrate (Silver Nitrate Applicators) 1 appl UNSCH PRN TOPICAL DRESSING CHANGES; Start 04/10/18 at 15:45 A/P Problem List: (1) Hypokalemia ICD Code: E87.6 - Hypokalemia (2) SHABANA (acute kidney injury) ICD Code: N17.9 - Acute kidney failure, unspecified (3) Wound infection ICD Code: T14.8XXA - Other injury of unspecified body region, initial encounter ; L08.9 - Local infection of the skin and subcutaneous tissue, unspecified (4) Brugada syndrome ICD Code: I49.8 - Other specified cardiac arrhythmias Status: Chronic Assessment and Plan 1. Hypokalemia: K+ 2.4, s/p replacement in ER, will recheck K+ and Mg tonight , replace as needed, telemetry for possible arrhythmia. 04/09 the patient still with severe hypokalemia with a K of 2.6. We will replace orally with potassium 60 mEq p.o. and with KCl 40 mEq IV. Monitor BMP and replace aggressively. I will consult nephrology since the patient states that she has been having persistent hypokalemia at home. 04/10 hypokalemia is greatly improved. Nephrology consult still pending. We will continue to replace orally and monitor BMP. DC TO HOME 2. SHABANA: Creatinine 2.53, previously 1.87 on 03/14/18, U/a w/ no UTI, IVF for hydration, repeat labs in am, monitor I/O. 04/09 creatinine trending down, down to 1.82. Upon review of records baseline creatinine seems to be between 1.7 and 1.8. Continue IV fluid. 04/10 resolved after IV fluid administration. Creatinine down to 1.32. Continue to monitor BMP. Nephrology consultation pending. 3. Wound Infection: h/o AICD Placement w/ Infection, s/p removal and placement of Wound VAC w/ removal on 03/14/18, completed treatment w/ Zyvox 600mg bid, today notes foul-smelling drainage from wound site, no leukocytosis, low- grade temp on arrival, will hold off on antibiotic therapy at this time, Consult Dr. Nichols with whom she follows for further recommendations to initiate antibiotics or not. Wound Consult for dressing changes. 04/09 patient is afebrile without any major signs of infection. Discussed the case with wound care nurse who states there was not much discharge from the wound. We will continue to hold off on antibiotics. ID consult pending. 04/10 ID consultation appreciated. Discussed the case with Dr. HALL who recommends observation off antibiotics. ID signed off. 4. Brugada Syndrome: currently on LifeVest as AICD removed due to infection, no events noted. Follows w/ Dr. Cervantes as outpatient, will consult if needed. 5. DVT Prophylaxis: SCD/Teds 6. Social work for d/c planning as needed DC TO HOME TODAY Discharge Planning DC TO HOME TOMORROW Nathaniel Sun DO Apr 12, 2018 11:52
[2018-04-12] MEDS ORDERED: K-PHTAB PO (11:58)
[2018-04-12] MEDS ORDERED: CHOL1CAP24 PO (11:58)
[2018-04-12] MEDS ORDERED: PRED10 PO (11:58)
[2018-04-12] MEDS ORDERED: MAGN400T2 PO (11:58)
[2018-04-12] MEDS ORDERED: MORP1TAB24 PO (11:58)
[2018-04-12] MEDS ORDERED: POTA-163 PO (11:58)
[2018-04-12] MEDS ORDERED: FERR325T18 PO (11:58)
[2018-04-12] MEDS ORDERED: SPIR25TA PO (11:58)
[2018-04-12] MEDS ORDERED: SYNT112T PO (11:58)
[2018-04-12] MEDS ORDERED: PANT40TA3 PO (11:58)
[2018-04-12] MEDS ORDERED: HYDR-3516 PO (11:58)
[2018-04-12] MEDS ORDERED: DIAZ10 PO (11:58)
[2018-04-12 12:00] VITALS: BP 135/77; PULSE 84; RESP 18; TEMP 98.7; O2SAT 98
[2018-04-12] MEDS ORDERED: POTASSIUM CHLORIDE 25 MEQ EFFERVESCENT TAB PO ONE (12:00)
--- NOTE | 2018-04-12 12:02 | HHI.DS ---
Discharge Summary Admission Date Apr 08, 2018 at 19:21 Discharge Date: Apr 12, 2018 Admitting Diagnosis Hypokalemia, acute on chronic kidney injury (1) Hypokalemia ICD Code: E87.6 - Hypokalemia Diagnosis: Principal (2) SHABANA (acute kidney injury) ICD Code: N17.9 - Acute kidney failure, unspecified Diagnosis: Principal (3) Wound infection ICD Code: T14.8XXA - Other injury of unspecified body region, initial encounter ; L08.9 - Local infection of the skin and subcutaneous tissue, unspecified Diagnosis: Secondary (4) Brugada syndrome ICD Code: I49.8 - Other specified cardiac arrhythmias Diagnosis: Secondary Status: Chronic Procedures NONE Brief History - From Admission This is a 42-year-old female with a PMH of Lupus, Brugada Syndrome, s/p AICD Placement and Removal due to Infection, s/p Wound VAC Placement and Removal, on LifeVest, CKD Stage III, Factitious Disorder and Anxiety who presented to the ER w/ complaints of foul-smelling drainage from left chest wall wound starting earlier today. Follows w/ Dr. Cervantes and Dr. Nichols. Recent admit for similar symptoms in addition to chest pain, Wound Vac removed 03/14/18, states she was supposed to have [facility] do "silver dressing changes", however states [facility] did not have them available so she's been doing dressing changes on her own. Today, noted purulent drainage from wound site, foul-smelling. Denies fever, chills. Previously treated w/ Zyvox 600mg bid which she completed. On arrival, BP 118/ 79, HR 98, O2 sat 97% on RA, Temp 99.8. CBC unremarkable. K+ 2.4. Creatinine 2.53, previously 1.87 on 03/14/2018. UA negative. S/p K+ replacement in ER. CBC/BMP: 04/12/18 0713 04/12/18 0713 Significant Findings Laboratory Tests Test 04/10/18 10:38 04/11/18 06:22 6/6/18 11:25 04/12/18 07:13 Red Blood Count 3.80 MIL/MM3 (4.00-5.30) 3.64 MIL/MM3 (4.00-5.30) 3.46 MIL/MM3 (4.00-5.30) Hemoglobin 10.9 GM/DL (11.6-15.3) 10.6 GM/DL (11.6-15.3) 10.0 GM/DL (11.6-15.3) Hematocrit 32.7 % (35.0-46.0) 31.0 % (35.0-46.0) 29.6 % (35.0-46.0) Platelet Count 133 TH/MM3 (150-450) 128 TH/MM3 (150-450) 105 TH/MM3 (150-450) Eosinophils (%) (Auto) 8.1 % (0.0-4.0) 6.9 % (0.0-4.0) 7.1 % (0.0-4.0) Eosinophils # (Auto) 0.5 TH/MM3 (0-0.4) 0.6 TH/MM3 (0-0.4) Creatinine 1.32 MG/DL (0.50-1.00) 1.23 MG/DL (0.50-1.00) 1.06 MG/DL (0.50-1.00) Total Protein 6.1 GM/DL (6.4-8.2) 5.7 GM/DL (6.4-8.2) 5.5 GM/DL (6.4-8.2) Albumin 3.3 GM/DL (3.4-5.0) 3.2 GM/DL (3.4-5.0) 2.8 GM/DL (3.4-5.0) Calcium Level 8.4 MG/DL (8.5-10.1) 7.8 MG/DL (8.5-10.1) Aspartate Amino Transf (AST/SGOT) 11 U/L (15-37) 10 U/L (15-37) Sodium Level 146 MEQ/L (136-145) Potassium Level 3.4 MEQ/L (3.5-5.1) 3.1 MEQ/L (3.5-5.1) Chloride Level 112 MEQ/L (98-107) 111 MEQ/L (98-107) 109 MEQ/L (98-107) Estimat Glomerular Filtration Rate 44 ML/MIN (>89) 48 ML/MIN (>89) 57 ML/MIN (>89) Alkaline Phosphatase 44 U/L (45-117) 42 U/L (45-117) Monocytes (%) (Auto) 8.1 % (0.0-8.0) Random Glucose 65 MG/DL (74-106) Imaging Last Impressions Soft Tissue Ultrasound 04/09/18 0000 Signed Impressions: CONCLUSION: 1. Nonspecific decreased echogenicity and soft tissue changes measuring 3.8 cm in the previous location of patient's defibrillator. Probable scar tissue. PE at Discharge GENERAL: Awake alert and oriented 3 talkative and cooperative very talkative SKIN: Warm and dry. HEAD: Atraumatic. Normocephalic. EYES: Pupils equal and round. No scleral icterus. No injection or drainage. Extraocular muscles intact ENT: No nasal bleeding or discharge. Mucous membranes pink and moist. Tongue is midline NECK: Trachea midline. No JVD. Supple CARDIOVASCULAR: Regular rate and rhythm. S1-S2 no S3-S4 RESPIRATORY: No accessory muscle use. Clear to auscultation. Breath sounds equal bilaterally. GASTROINTESTINAL: Abdomen soft, non-tender, nondistended. Hepatic and splenic margins not palpable. MUSCULOSKELETAL: Extremities without clubbing, cyanosis, or edema. No obvious deformities. NEUROLOGICAL: Awake and alert. No obvious cranial nerve deficits. Motor grossly within normal limits. Five out of 5 muscle strength in the arms and legs. Normal speech. PSYCHIATRIC: INAppropriate mood and affect; insight and judgment ABnormal. Hospital Course This is a 42-year-old female with a PMH of Lupus, Brugada Syndrome, s/p AICD Placement and Removal due to Infection, s/p Wound VAC Placement and Removal, on LifeVest, CKD Stage III, Factitious Disorder and Anxiety who presented to the ER w/ complaints of foul-smelling drainage from left chest wall wound starting earlier today. Follows w/ Dr. Cervantes and Dr. Nichols. Recent admit for similar symptoms in addition to chest pain, Wound Vac removed 03/14/18, states she was supposed to have [facility] do "silver dressing changes", however states [facility] did not have them available so she's been doing dressing changes on her own. Today, noted purulent drainage from wound site, foul-smelling. Denies fever, chills. Previously treated w/ Zyvox 600mg bid which she completed. On arrival, BP 118/ 79, HR 98, O2 sat 97% on RA, Temp 99.8. CBC unremarkable. K+ 2.4. Creatinine 2.53, previously 1.87 on 03/14/2018. UA negative. S/p K+ replacement in ER. 6-5 The patient states that she feels weak Denies fevers or chills. Denies diarrhea. Still complains of some pain in the left side of the chest around her wound area. 6-6 POTASSIUM NOT IMPROVED YET NEEDS TO TAKE IN MORE PO POTASSIUM DW RN AND PT AM LABS POSSIBLE DC TOMORROW IF IS STABLE 6-7 CLEARED BY ID AND NEPHROLOGY NEEDS TO EAT CORRECTLY DC TO HOME TODAY DC IV DW RN AND PT AND CM Pt Condition on Discharge: Good Discharge Disposition: Disch w/ Home Health Serv Discharge Time: > 30 minutes Discharge Instructions DIET: Follow Instructions for: Heart Healthy Diet Speech Therapy-Diet Recommends: Regular Activities you can perform: Shower Only-No Bath Follow up Referrals: PCP Follow-up - 04/13/18 New Medications: Hydrocodone/Acetaminophen (Hydrocodone-Acetamin 5-325 mg) 5 Mg-325 Mg Tablet 1 TAB PO Q4H PRN for BREAKTHROUGH PAIN, #10 TAB Continued Medications: Cholecalciferol (Vitamin D3) 10,000 Unit Cap 21799 UNITS PO Q3D @ HS for Nutritional Supplement, #1 BOTTLE 0 Refills (This prescription has been renewed) Defibrillator Jacket (Defibrillator Jacket) 1 Ea Device EA EXTERNAL ONCE for brugada syndrome , #1 Energy = 150 Joules; VT Threshold = 150 BPM; VF Threshold = 200 BPM Use up to 90 [address] only pt of Dr Cervantes Diazepam (Valium) 10 Mg Tab 10 MG PO TID PRN for muscle spasm, #9 TAB (This prescription has been renewed) Ferrous Sulfate (Ferrous Sulfate) 325 Mg (65 Mg Iron) Tablet 325 MG PO BIDPC for Nutritional Supplement, #60 TAB 0 Refills (This prescription has been renewed) Levothyroxine (Synthroid) 112 Mcg Tab 112 MCG PO DAILY@0600 for Thyroid Supplement, #30 TAB (This prescription has been renewed) Magnesium Oxide (Magnesium Oxide) 400 Mg Tab 400 MG PO DAILY for Nutritional Supplement, #30 TAB 0 Refills (This prescription has been renewed) Morphine ER (Morphine ER) 15 Mg Tab 15 MG PO Q8HR for Pain Management, #9 TAB (This prescription has been renewed) Pantoprazole (Pantoprazole) 40 Mg Tab 40 MG PO HS for Reflux, #30 TAB 0 Refills (This prescription has been renewed) Potassium Chloride ER (Potassium Chloride ER) 20 Meq Tab 40 MEQ PO TID for Electrolyte Replacement, #180 TAB 0 Refills (This prescription has been renewed) Potassium Phosphate Monobasic (K-Phos) 500 Mg Tab 500 MG PO PCHS for Electrolyte Replacement, #120 TAB 0 Refills (This prescription has been renewed) Prednisone (Prednisone) 10 Mg Tab 30 MG PO DAILY for Control Inflammation, #30 TAB (This prescription has been renewed) Spironolactone (Spironolactone) 25 Mg Tab 25 MG PO DAILY for Diuretic, #30 TAB 0 Refills (This prescription has been renewed) Nathaniel Sun DO Apr 12, 2018 12:02
--- NOTE | 2018-04-12 12:42 | HHI.FF ---
Face to Face Verification Diagnosis: (1) S/P ICD (internal cardiac defibrillator) procedure (2) Brugada syndrome (3) Wound infection (4) AICD generator infection (5) HTN (hypertension) (6) Munchausen syndrome (7) Factitious disorder (8) s/p extrraaction of ICD/ epicardial lead (9) Hypokalemia (10) Renal insufficiency (11) Chronic kidney disease (12) Anxiety (13) Anxiety with somatization Physical Therapy Order: Evaluate and Treat, Improve ambulation, Strength and gait training Home Health Nursing Order: Medical education Signs/symptoms of disease process Wound care and dressing changes Nursing assessment with vital signs Home Health Aide Order: To Assist In: Bathing and personal care, grinder set up operator centerless and meal prep I have seen patient Brisa Hernandez on 04/12/18. My clinical findings support the need for the requested home health care services because: Med compliance is questionable I certify that my clinical findings support that this patient is homebound because: Impaired cognitive ability/safety Need for psychosocial assistance Nathaniel Sun DO Apr 12, 2018 12:42
--- NOTE | 2018-04-12 12:57 | HHI.FF ---
Face to Face Verification Diagnosis: (1) S/P percutaneous endoscopic gastrostomy (PEG) tube placement (2) S/P ICD (internal cardiac defibrillator) procedure (3) Infection of automatic implantable cardioverter-defibrillator lead Home Health Nursing Order: Wound care and dressing changes Instructions: Please cleanse to L lateral chest with normal saline and pat dry. Apply optifoam gentle border and secure dressing snuggly. change dressing every 2 days or PRN if saturated or dislogded. Order wound culture apply Opifoam AG gentle secured with tape. Change dressing every 3 days or PRN for saturation or dislodgement I have seen patient Brisa Hernandez on 04/12/18. My clinical findings support the need for the requested home health care services because: Impaired cognition/judgement I certify that my clinical findings support that this patient is homebound because: Impaired cognitive ability/safety Nathaniel Sun DO Apr 12, 2018 12:57
--- NOTE | 2018-04-12 16:15 | PD.WCN.NOT ---
Wound Consult Description: Patient seen for follow up of Left lateral chest wound Communicated with: RN Martin and Doctor Corinne Recommendation: Please cleanse to L lateral chest with normal saline and pat dry. Apply optifoam gentle border and secure dressing snuggly. change dressing every 2 days or PRN if saturated or dislodged. Additional Information: Patient seen for follow up of wound to L lateral chest wound and silver nitrate application. Removed optifoam gentle border dressing in place to L lateral chest to reveal wound that has improved since previous assessment. Wound now measures ~ 2cm x ~0.5cm x ~ +0.2cm. wound presents with 100% hypergranulated tissue. Silver nitrate was applied to hypergranulated tissue. Cleansed wound and periwound with normal saline to remove excess silver nitrate. Applied Optifoam gentle border 4x4 dressing snuggly in place. Skin barrier film was applied to periwound before Optifoam gentle was applied. Ordered extra supplies from [facility] for patient to go home with Darling Mahoney [facility] Apr 12, 2018 16:15
[2018-04-12 17:32] LABS: HEMOGLOBIN A1C 5.1 % (4.3-6.0)
== END 2018-04-12 18:20 | disposition home health service (06) | DRG 863 ==
LOC: NEPE 15:37 → NEDA 18:41 → OBSVTOIN 19:21 → N07A 19:45
PROVIDERS: ADMIT Hospitalist; ATTEND Hospitalist
DX: T81.4XXA Infection following a procedure, initial encounter (principal); B95.62 Methicillin resistant Staphylococcus aureus infection as the cause of diseases classified elsewhere; M32.9 Systemic lupus erythematosus, unspecified; Z79.52 Long term (current) use of systemic steroids; N17.9 Acute kidney failure, unspecified; I12.9 Hypertensive chronic kidney disease with stage 1 through stage 4 chronic kidney disease, or unspecified chronic kidney disease; N18.3 Chronic kidney disease, stage 3 (moderate); K50.90 Crohn's disease, unspecified, without complications; E87.6 Hypokalemia; I49.8 Other specified cardiac arrhythmias; E03.9 Hypothyroidism, unspecified
CPT/HCPCS: 76999; 80053; 81001; 82550; 83036; 83735; 84100; 84132; 84133; 84439; 84443; 84484; 85025; 85610; 85730; 87070; 87077; 87186; 87205; 93005; 96361; 96365; 96366; 96375; J2270; J3480; J7030; J7040; J7512

== ENCOUNTER 2018-04-26 18:22 | Emergency (ER) | payer OTHER ==
[~2018-04-26] VITALS: Ht 175.3 cm; Wt 70.0 kg
[~2018-04-26 18:22] MED LIST changes: +HYDR-3516 PO; -ZYVO600T PO
[2018-04-26 18:30] VITALS: BP 143/79; PULSE 89; RESP 18; TEMP 98.6; O2SAT 100
[2018-04-26] MEDS ORDERED: SODIUM CHLORIDE 0.9% FLUSH 10 ML FLUSH IVF PRN (18:45)
--- NOTE | 2018-04-26 18:57 | PD ---
HPI . Weak and dizzy Chief Complaint: Dizziness Time Seen by Provider: 18:35 Travel History International Travel<30 days: No Contact w/Intl Traveler<30days: No Traveled to known affect area: No History of Present Illness HPI Patient presents with a chief complaint of the acute onset of feeling weak and dizzy. Started just prior to presentation. She called the back and was brought in to us by them. She is also complaining with palpitations. She complains of pain everywhere. She states she always has pain everywhere because of her lupus. The patient also reports a history of atrial fibrillation. She states that she has had symptoms similar to this before that have been secondary to hypokalemia. She states that her symptoms are moderate and are exacerbated by standing up. PFSH Past Medical History Arthritis: No Asthma: No Atrial Fibrillation: No Autoimmune Disease: Yes (lupus) Blood Disorders: No Bipolar Disorder: Yes Anxiety: Yes Depression: No Heart Rhythm Problems: No Cancer: Yes Cardiac Catheterization: No Cardiovascular Problems: Yes (brugada syndrome) High Cholesterol: No Chemotherapy: No Chest Pain: No Congestive Heart Failure: No COPD: No Cerebrovascular Accident: No Diabetes: No Diminished Hearing: No Endocrine: Yes Gastrointestinal Disorders: Yes (GASTROPARESIS, esophagitis) GERD: Yes Genitourinary: Yes Headaches: Yes Hiatal Hernia: No Heparin Induced Thrombocytopen: No Hypertension: Yes Immune Disorder: Yes (crohn's, sle) Implanted Vascular Access Dvce: Yes (RIGHT SUBCLAVIAN PORT VAD) Kidney Stones: Yes Musculoskeletal: No Neurologic: Yes Psychiatric: Yes Reproductive: No Respiratory: Yes Immunizations Current: Yes Migraines: Yes Myocardial Infarction: No Pneumonia: Yes Radiation Therapy: No Renal Failure: Yes Seizures: Yes (juvenile epilepsy) Sickle Cell Disease: No Sleep Apnea: No Thyroid Disease: Yes Ulcer: Yes PNEUMOCCOCAL Vaccine (Year): 3 ?: Not : 2 Para: 1 Miscarriage: 1 : 0 Ectopic : Yes (AT 17 YEARS OF AGE) Ovarian Cysts: Yes Past Surgical History Abdominal Surgery: Yes (multiple laps,appendectomy) AICD: Yes (removed) Appendectomy: Yes Arteriovenous Shunt: No Body Medical Devices: RIGHT SUBCLAVIAN PORT VAD, DEFIB/PACER PLACED X 3 WEEKS AGO Cardiac Surgery: Yes (aicd) Coronary Artery Bypass Graft: No Ear Surgery: No Endocrine Surgery: Yes Eye Surgery: No Genitourinary Surgery: Yes (interstitial cystitis) Gynecologic Surgery: Yes (partial hysterectomy,oviaran cysts/tumor removed) Hysterectomy: Yes (partial) Insulin Pump: No Joint Replacement: No Neurologic Surgery: No Oral Surgery: Yes (abscess removal) Pacemaker: Yes (removed) Thoracic Surgery: No Other Surgery: Yes (OVARIAN CYST/TUMOR REMOVED) Social History Alcohol Use: No Tobacco Use: No Substance Use: No Allergies-Medications (Allergen,Severity, Reaction): Coded Allergies: Fish Containing Products (Verified Allergy, Severe, SWELLING IN THROAT, SOB, 04/08/18) cephalexin (Verified Allergy, Severe, RASH,SWELLING, 04/08/18) ketorolac (Verified Allergy, Severe, RASH, 04/08/18) penicillin G (Verified Allergy, Severe, RASH,SWELLING, 04/08/18) prochlorperazine (Verified Allergy, Mild, DYSTONIC REACTION, 04/08/18) promethazine (Verified Allergy, Mild, DYSTONIC REACTION, 04/08/18) gabapentin (Verified Adverse Reaction, Severe, SEIZURES, 04/08/18) Reported Meds & Prescriptions Reported Meds & Active Scripts Active Hydrocodone-Acetamin 5-325 mg (Hydrocodone/Acetaminophen) 5 Mg-325 Mg Tablet 1 Tab PO Q4H PRN Morphine ER (Morphine Sulfate) 15 Mg Tab 15 Mg PO Q8HR Valium (Diazepam) 10 Mg Tab 10 Mg PO TID PRN K-Phos (Potassium Phosphate Monobasic) 500 Mg Tab 500 Mg PO PCHS Magnesium Oxide 400 Mg Tab 400 Mg PO DAILY Pantoprazole (Pantoprazole Sodium) 40 Mg Tab 40 Mg PO HS Spironolactone 25 Mg Tab 25 Mg PO DAILY Potassium Chloride ER (Potassium Chloride) 20 Meq Tab 40 Meq PO TID Ferrous Sulfate 325 Mg (65 Mg Iron) Tablet 325 Mg PO BIDPC Vitamin D3 (Cholecalciferol) 10,000 Unit Cap 20,000 Units PO Q3D @ HS Synthroid (Levothyroxine Sodium) 112 Mcg Tab 112 Mcg PO DAILY@0600 Prednisone 10 Mg Tab 30 Mg PO DAILY Defibrillator Jacket (Device) 1 Ea Device Ea EXTERNAL ONCE Energy = 150 Joules; VT Threshold = 150 BPM; VF Threshold = 200 BPM Use up to 90 days only pt of Dr Cervantes Review of Systems Except as stated in HPI: all other systems reviewed are Neg Physical Exam Narrative GENERAL: Awake and alert. SKIN: warm/dry. HEAD: Normocephalic. Atraumatic. EYES: Pupils equal and round. Extraocular movements are intact. ENT: Mucous membranes pink and moist. NECK: Supple. Full range of motion without pain.. CARDIOVASCULAR: Regular rate and rhythm. Heart sounds are normal. She is not tachycardic here. RESPIRATORY: No accessory muscle use. Clear to auscultation. Breath sounds equal bilaterally. GASTROINTESTINAL: Abdomen soft. Nontender. Bowel sounds present. Nondistended. MUSCULOSKELETAL: No obvious deformities. Normal muscle tone. NEUROLOGICAL: Awake and alert. No obvious cranial nerve deficits. Motor grossly within normal limits. Normal speech. PSYCHIATRIC: Appropriate mood and affect; insight and judgment normal. Data Data Last Documented VS Vital Signs Date Time Temp Pulse Resp B/P (MAP) Pulse Ox O2 Delivery O2 Flow Rate FiO2 04/26/18 18:32 84 20 99 Room Air 04/26/18 18:30 98.6 143/79 (100) Orders Orders Electrocardiogram (04/26/18 18:35) Complete Blood Count With Diff (04/26/18 18:35) Comprehensive Metabolic Panel (04/26/18 18:35) Magnesium (Mg) (04/26/18 18:35) Troponin I (04/26/18 18:35) Ecg Monitoring (04/26/18 18:35) Iv Access Insert/Monitor (04/26/18 18:35) Oximetry (04/26/18 18:35) Sodium Chloride 0.9% Flush (Ns Flush) (04/26/18 18:45) MDM Medical Decision Making Medical Screen Exam Complete: Yes Emergency Medical Condition: Yes Interpretation(s) EKG shows a sinus rhythm with no acute ischemic changes Differential Diagnosis Differential diagnosis of weakness includes but is not limited to infection, CVA , electrolyte disturbance, renal failure, hypoglycemia Narrative Course This patient presents complaining of feeling weak and dizzy. She was also having palpitations. She presumed that she had atrial fibrillation with rapid ventricular response because she has had that before. However, she is in a sinus rhythm. She also reports previous similar symptoms associated with hypokalemia. Labs are pending. Her care is being turned over to the oncoming physician at 7 PM pending her laboratory workup. Diagnosis Primary Impression: Generalized weakness Condition: Stable Vaishnavi Olivera MD Apr 26, 2018 18:57
[2018-04-26 19:13] VITALS: RESP 18; O2SAT 97
[2018-04-26 19:23] LABS: AUTOMATED NEUTROPHIL # 4.7 TH/MM3 (1.8-7.7); BASOPHIL % 0.6 % (0.0-2.0); EOSINOPHIL # 0.3 TH/MM3 (0-0.4); EOSINOPHIL % 4.8 % (0.0-4.0); HEMATOCRIT 32.7 % (35.0-46.0); HEMOGLOBIN 10.6 GM/DL (11.6-15.3); LYMPH % 18.2 % (9.0-44.0); LYMPHOCYTE # 1.3 TH/MM3 (1.0-4.8); MEAN CELL VOLUME 88.3 FL (80.0-100.0); MEAN CORPUSCULAR HEMOGLOBIN 28.6 PG (27.0-34.0); MEAN CORPUSCULAR HGB CONC 32.4 % (32.0-36.0); MEAN PLATELET VOLUME 7.5 FL (7.0-11.0); MONO % 8.6 % (0.0-8.0); MONOCYTE # 0.6 TH/MM3 (0-0.9); NEUT % 67.8 % (16.0-70.0); PLATELET COUNT 176 TH/MM3 (150-450); RED CELL DISTRIBUTION WIDTH 15.1 % (11.6-17.2); WHITE BLOOD COUNT 6.9 TH/MM3 (4.0-11.0)
[2018-04-26 19:42] LABS: ALBUMIN 3.2 GM/DL (3.4-5.0); AST (GOT) 14 U/L (15-37); BICARBONATE 24.1 MEQ/L (21.0-32.0); BLOOD UREA NITROGEN 13 MG/DL (7-18); CALCIUM 8.3 MG/DL (8.5-10.1); CHLORIDE 107 MEQ/L (98-107); CREATININE 1.57 MG/DL (0.50-1.00); GLOMERULAR FILTRATION RATE 36 ML/MIN (>89); GLUCOSE,RANDOM 93 MG/DL (74-106); MAGNESIUM 2.3 MG/DL (1.5-2.5); SODIUM (NA) 140 MEQ/L (136-145)
[2018-04-26 19:43] LABS: ALT (GPT) 12 U/L (10-53)
[2018-04-26 19:47] LABS: ALKALINE PHOSPHATASE 57 U/L (45-117); TOTAL BILIRUBIN ADULT 0.2 MG/DL (0.2-1.0); TOTAL PROTEIN 6.3 GM/DL (6.4-8.2); TROPONIN I LESS THAN 0.02 NG/ML (0.02-0.05)
[2018-04-26 20:26] VITALS: BP 154/87; PULSE 86; RESP 18; O2SAT 98
[2018-04-26] MEDS ORDERED: SODIUM CHLOR 0.9% 1000 ML INJ 1,000 ML IV ONE (20:45)
[2018-04-26 21:06] LABS: BACTERIA, URINE OCC /hpf; BILIRUBIN, URINE NEG (NEG); BLOOD, URINE NEG (NEG); GLUCOSE,URINE NEG (NEG); KETONE, URINE NEG (NEG); MUCUS URINE FEW /lpf (OCC); NITRITE,URINE NEG (NEG); SQUAMOUS EPITHELIAL CELL URINE 8 /hpf (0-5); URINE COLOR YELLOW (YELLW/STRAW); URINE LEUKOCYTE ESTERASE SMALL (NEG)
[2018-04-26] MEDS ORDERED: MORPHINE SULFATE 4 MG/ML INJ IV PUSH ONE (23:45)
[2018-04-27 01:07] VITALS: BP 160/89; PULSE 72; RESP 18; O2SAT 97
--- NOTE | 2018-04-27 01:42 | PD ---
Physical Exam Date Seen by Provider: Apr 27, 2018 Time Seen by Provider: 01:41 Narrative Patient still having pain patient is given IV fluid for perfusing her kidneys creatinine is 1.5 I give her 2 of morphine she feels better she has a mild vasodilation reaction at her IV site. Patient is then discharged home follow- up as an outpatient she feels better Data Data Last Documented VS Vital Signs Date Time Temp Pulse Resp B/P (MAP) Pulse Ox O2 Delivery O2 Flow Rate FiO2 04/27/18 01:07 72 18 160/89 (112) 97 Room Air 04/26/18 18:30 98.6 Orders Orders Electrocardiogram (04/26/18 18:35) Complete Blood Count With Diff (04/26/18 18:35) Comprehensive Metabolic Panel (04/26/18 18:35) Magnesium (Mg) (04/26/18 18:35) Troponin I (04/26/18 18:35) Ecg Monitoring (04/26/18 18:35) Iv Access Insert/Monitor (04/26/18 18:35) Oximetry (04/26/18 18:35) Sodium Chloride 0.9% Flush (Ns Flush) (04/26/18 18:45) Urinalysis - C+S If Indicated (04/26/18 19:41) Sodium Chlor 0.9% 1000 Ml Inj (Ns 1000 M (04/26/18 20:45) Morphine Inj (Morphine Inj) (04/26/18 23:45) Ed Discharge Order (04/27/18 01:40) Labs Laboratory Tests Test 04/26/18 18:45 04/26/18 20:14 White Blood Count 6.9 TH/MM3 Red Blood Count 3.70 MIL/MM3 Hemoglobin 10.6 GM/DL Hematocrit 32.7 % Mean Corpuscular Volume 88.3 FL Mean Corpuscular Hemoglobin 28.6 PG Mean Corpuscular Hemoglobin Concent 32.4 % Red Cell Distribution Width 15.1 % Platelet Count 176 TH/MM3 Mean Platelet Volume 7.5 FL Neutrophils (%) (Auto) 67.8 % Lymphocytes (%) (Auto) 18.2 % Monocytes (%) (Auto) 8.6 % Eosinophils (%) (Auto) 4.8 % Basophils (%) (Auto) 0.6 % Neutrophils # (Auto) 4.7 TH/MM3 Lymphocytes # (Auto) 1.3 TH/MM3 Monocytes # (Auto) 0.6 TH/MM3 Eosinophils # (Auto) 0.3 TH/MM3 Basophils # (Auto) 0.0 TH/MM3 CBC Comment DIFF FINAL Differential Comment Blood Urea Nitrogen 13 MG/DL Creatinine 1.57 MG/DL Random Glucose 93 MG/DL Total Protein 6.3 GM/DL Albumin 3.2 GM/DL Calcium Level 8.3 MG/DL Magnesium Level 2.3 MG/DL Alkaline Phosphatase 57 U/L Aspartate Amino Transf (AST/SGOT) 14 U/L Alanine Aminotransferase (ALT/SGPT) 12 U/L Total Bilirubin 0.2 MG/DL Sodium Level 140 MEQ/L Potassium Level 3.5 MEQ/L Chloride Level 107 MEQ/L Carbon Dioxide Level 24.1 MEQ/L Anion Gap 9 MEQ/L Estimat Glomerular Filtration Rate 36 ML/MIN Troponin I LESS THAN 0.02 NG/ML Urine Color YELLOW Urine Turbidity CLOUDY Urine pH 6.0 Urine Specific [place] 1.010 Urine Protein NEG mg/dL Urine Glucose (UA) NEG mg/dL Urine Ketones NEG mg/dL Urine Occult Blood NEG Urine Nitrite NEG Urine Bilirubin NEG Urine Urobilinogen LESS THAN 2 mg/dL Urine Leukocyte Esterase SMALL Urine RBC LESS THAN 1 /hpf Urine WBC 4 /hpf Urine Squamous Epithelial Cells 8 /hpf Urine Bacteria OCC /hpf Urine Mucus FEW /lpf Microscopic Urinalysis Comment CULT NOT INDICATED MDM Medical Record Reviewed: Yes Supervised Visit with ARY: No Differential Diagnosis lupus flare UTI pyelonephritis other Diagnosis Primary Impression: Generalized weakness Additional Impression: Abdominal pain Patient Instructions: Abdominal Pain (ED), General Instructions Disposition: 01 DISCHARGE HOME Condition: Good Hank Jett MD Apr 27, 2018 01:42
--- NOTE | 2018-04-27 09:21 | EKG ---
Date Performed: 04/26/2018 Time Performed: 18:39:13 PTAGE: 42 years EKG: Sinus rhythm WITH FIRST DEGREE AV BLOCK ABNORMAL ECG Since the PREVIOUS TRACING , no significant change noted PREVIOUS TRACIN04/08/2018 16.46 DOCTOR: Albert Garcia Interpretating Date/Time 04/27/2018 09:15:26
== END 2018-04-27 02:11 | disposition home or self-care (01) ==
LOC: NEPE 18:22
DX: R53.1 Weakness (principal); R10.9 Unspecified abdominal pain; R42 Dizziness and giddiness; R00.2 Palpitations; I48.91 Unspecified atrial fibrillation; E87.6 Hypokalemia; I44.0 Atrioventricular block, first degree; R94.31 Abnormal electrocardiogram [ECG] [EKG]; M32.9 Systemic lupus erythematosus, unspecified; F31.9 Bipolar disorder, unspecified; F41.9 Anxiety disorder, unspecified; K21.9 Gastro-esophageal reflux disease without esophagitis; I10 Essential (primary) hypertension; Z86.69 Personal history of other diseases of the nervous system and sense organs; Z79.899 Other long term (current) drug therapy; Z88.0 Allergy status to penicillin; Z87.19 Personal history of other diseases of the digestive system; Z88.8 Allergy status to other drugs, medicaments and biological substances
CPT/HCPCS: 80053; 81001; 83735; 84484; 85025; 93005; 96361; 96374; 99284; J2270; J7030

== ENCOUNTER 2018-04-29 23:45 | Emergency (ER) | payer OTHER ==
[~2018-04-29] VITALS: Ht 175.3 cm; Wt 72.7 kg
[2018-04-29 23:47] VITALS: BP 172/86; PULSE 99; RESP 20; TEMP 98.7; O2SAT 98
[2018-04-30] MEDS ORDERED: SODIUM CHLOR 0.9% 1000 ML INJ 1,000 ML IV ONE
--- NOTE | 2018-04-30 00:02 | PD ---
HPI Chief Complaint: Abdominal Pain Time Seen by Provider: 23:49 Travel History International Travel<30 days: No Contact w/Intl Traveler<30days: No Traveled to known affect area: No History of Present Illness HPI The patient is a 42 year old female who presents to the [facility] emergency department with a history of abdominal pain that she reports began yesterday. The patient reports that the pain is across her lower abdomen. The pain has been coming and going. The patient reports that the pain is an aching sensation. She denies any alleviating or aggravating factors. She reports that last night she had one episode of vomiting, however no vomiting today. She reports that she has been nauseated. She denies having any diarrhea. Her last bowel movement reports that it was harder than usual. The patient reports that she does have a history of chronic pain related to multiple medical conditions, however she has not been on the morphine that she is normally prescribed by pain management recently as she has not been able to go to an appointment. She reports that her last menstrual cycle started 2 days ago. She reports that it is much heavier than usual. She reports that she has been having to use 1 pad every 2 hours for the bleeding. The patient's medical history is significant for having atrial fibrillation and Brugada syndrome status post AICD placement, however she developed an infection which required removal. The patient reports that the site is now healing well after a wound VAC was placed and at this time is discontinued. The patient completed her full course of antibiotic. The patient reports that she is on 30 mg of prednisone daily over the last couple of months. This is related to her history of lupus. She is followed through the [facility] for primary care. She does not have a operating room manager yet, however she is in the process of being referred. She reports that she also has a history of chronic renal insufficiency and is in the process of being referred to a bottled beverage inspector. Review of systems otherwise, the patient denies having any fevers, cough or congestion, neck pain, chest pain, shortness of breath, dysuria, urinary frequency, urinary urgency, or neurologic symptoms. PFSH Past Medical History Arthritis: No Asthma: No Atrial Fibrillation: No Autoimmune Disease: Yes (lupus) Blood Disorders: No Bipolar Disorder: Yes Anxiety: Yes Depression: No Heart Rhythm Problems: No Cancer: Yes Cardiac Catheterization: No Cardiovascular Problems: Yes (brugada syndrome) High Cholesterol: No Chemotherapy: No Chest Pain: No Congestive Heart Failure: No COPD: No Cerebrovascular Accident: No Diabetes: No Diminished Hearing: No Endocrine: Yes Gastrointestinal Disorders: Yes (GASTROPARESIS, esophagitis) GERD: Yes Genitourinary: Yes Headaches: Yes Hiatal Hernia: No Heparin Induced Thrombocytopen: No Hypertension: Yes Immune Disorder: Yes (crohn's, sle) Implanted Vascular Access Dvce: Yes (RIGHT SUBCLAVIAN PORT VAD) Kidney Stones: Yes Musculoskeletal: No Neurologic: Yes Psychiatric: Yes Reproductive: No Respiratory: Yes Immunizations Current: Yes Migraines: Yes Myocardial Infarction: No Pneumonia: Yes Radiation Therapy: No Renal Failure: Yes Seizures: Yes (juvenile epilepsy) Sickle Cell Disease: No Sleep Apnea: No Thyroid Disease: Yes Ulcer: Yes Tetanus Vaccination: < 5 Years Influenza Vaccination: Yes PNEUMOCCOCAL Vaccine (Year): 3 ?: Not : 2 Para: 1 Miscarriage: 1 : 0 Ectopic : Yes (AT 17 YEARS OF AGE) Ovarian Cysts: Yes Past Surgical History Abdominal Surgery: Yes (multiple laps,appendectomy) AICD: Yes (removed) Appendectomy: Yes Arteriovenous Shunt: No Body Medical Devices: RIGHT SUBCLAVIAN PORT VAD, DEFIB/PACER-all removed as 2017 Cardiac Surgery: Yes Coronary Artery Bypass Graft: No Ear Surgery: No Endocrine Surgery: Yes Eye Surgery: No Genitourinary Surgery: Yes (interstitial cystitis) Gynecologic Surgery: Yes (partial hysterectomy,oviaran cysts/tumor removed) Hysterectomy: Yes (partial) Insulin Pump: No Joint Replacement: No Neurologic Surgery: No Oral Surgery: Yes (abscess removal) Pacemaker: Yes (removed) Thoracic Surgery: No Other Surgery: Yes (OVARIAN CYST/TUMOR REMOVED) Social History Alcohol Use: No Tobacco Use: No Substance Use: No Allergies-Medications (Allergen,Severity, Reaction): Coded Allergies: Fish Containing Products (Verified Allergy, Severe, SWELLING IN THROAT, SOB, 04/08/18) cephalexin (Verified Allergy, Severe, RASH,SWELLING, 04/08/18) ketorolac (Verified Allergy, Severe, RASH, 04/08/18) penicillin G (Verified Allergy, Severe, RASH,SWELLING, 04/08/18) prochlorperazine (Verified Allergy, Mild, DYSTONIC REACTION, 04/08/18) promethazine (Verified Allergy, Mild, DYSTONIC REACTION, 04/08/18) gabapentin (Verified Adverse Reaction, Severe, SEIZURES, 04/08/18) Reported Meds & Prescriptions Reported Meds & Active Scripts Active Morphine ER (Morphine Sulfate) 15 Mg Tab 15 Mg PO Q8HR Valium (Diazepam) 10 Mg Tab 10 Mg PO TID PRN K-Phos (Potassium Phosphate Monobasic) 500 Mg Tab 500 Mg PO PCHS Magnesium Oxide 400 Mg Tab 400 Mg PO DAILY Pantoprazole (Pantoprazole Sodium) 40 Mg Tab 40 Mg PO HS Spironolactone 25 Mg Tab 25 Mg PO DAILY Potassium Chloride ER (Potassium Chloride) 20 Meq Tab 40 Meq PO TID Ferrous Sulfate 325 Mg (65 Mg Iron) Tablet 325 Mg PO BIDPC Vitamin D3 (Cholecalciferol) 10,000 Unit Cap 20,000 Units PO Q3D @ HS Synthroid (Levothyroxine Sodium) 112 Mcg Tab 112 Mcg PO DAILY@0600 Prednisone 10 Mg Tab 30 Mg PO DAILY Defibrillator Jacket (Device) 1 Ea Device Ea EXTERNAL ONCE Energy = 150 Joules; VT Threshold = 150 BPM; VF Threshold = 200 BPM Use up to 90 days only pt of Dr Cervantes Review of Systems Except as stated in HPI: all other systems reviewed are Neg General / Constitutional: No: Fever Eyes: No: Visual changes HENT: No: Headaches Cardiovascular: No: Chest Pain or Discomfort Respiratory: No: Shortness of Breath Gastrointestinal: Positive: Nausea, Vomiting, Abdominal Pain, Changes in Bowel Habits, No: Diarrhea, Hematemesis, Hematochezia, Indigestion, Loss of Appetite Genitourinary: No: Dysuria Musculoskeletal: No: Pain Skin: No Rash Neurologic: No: Weakness, Focal Abnormalities, Change in Mentation, Slurred Speech, Sensory Disturbance Psychiatric: No: Depression Endocrine: No: Polydipsia Hematologic/Lymphatic: No: Easy Bruising Physical Exam Narrative General: The patient is a well-developed well-nourished female in no acute distress. Head and Neck exam: Head is normocephalic atraumatic. Eyes: EOMI, pupils are equal round and reactive to light. Nose: Midline septum with pink mucous membranes Mouth: Dentition unremarkable. Moist mucus membranes. Posterior oropharynx is not erythematous. No tonsillar hypertrophy. Uvula midline. Airway patent. Neck: No palpable lymphadenopathy. No nuchal rigidity. No thyromegaly. Cardiovascular: Regular rate and rhythm without murmurs, gallops, or rubs. No pulse deficit to the extremities on simultaneous auscultation and palpation of her radial artery. On examination of her AICD removal wound, the patient has a healed wound at the border of the lateral aspect of her left breast which appears to have healed well without any signs of erythema, no edema, no drainage, no pointing. The patient reports some tenderness on palpation of the site. Lungs: Clear to auscultation bilaterally. No wheezes, rhonchi, or rales. Abdomen: Soft, with tenderness on palpation overlying the suprapubic and bilateral lower quadrants of the abdomen. No tenderness on palpation of other quadrants. No point tenderness specifically on palpation of her McBurney's point. No guarding , rebound, or rigidity. Normal bowel sounds are audible. Negative Pak sign. Extremities: No clubbing, cyanosis, or edema. 2+ pulses in all 4 extremities. No calf tenderness on palpation. Back: No spinous process tenderness to palpation. No costovertebral angle tenderness to palpation. Neurologic Exam: Grossly nonfocal. Skin Exam: No rash noted. Intact skin that is warm and dry. Data Data Last Documented VS Vital Signs Date Time Temp Pulse Resp B/P (MAP) Pulse Ox O2 Delivery O2 Flow Rate FiO2 04/30/18 01:09 20 99 Room Air 04/29/18 23:47 98.7 99 172/86 (114) Orders Orders Electrocardiogram (04/29/18 23:52) Complete Blood Count With Diff (04/29/18 23:52) Comprehensive Metabolic Panel (04/29/18 23:52) Prothrombin Time / Inr (Pt) (04/29/18 23:52) Act Partial Throm Time (Ptt) (04/29/18 23:52) C-Reactive Protein (Crp) (04/29/18 23:52) Lipase (04/29/18 23:52) Urinalysis - C+S If Indicated (04/29/18 23:52) Magnesium (Mg) (04/29/18 23:52) Thyroid Stimulating Hormone (04/29/18 23:52) Iv Access Insert/Monitor (04/29/18 23:52) Ecg Monitoring (04/29/18 23:52) Oximetry (04/29/18 23:52) Ed Urine Pregnancytest Poc (04/29/18 23:52) Lactic Acid (04/30/18 00:00) Sodium Chlor 0.9% 1000 Ml Inj (Ns 1000 M (04/30/18 00:00) Ct Abd/Pel W Iv Contrast(Rout) (04/30/18 00:00) Urine Culture (04/30/18 00:15) Iodixanol 320 Inj (Rad Ct) (Visipaque 32 (04/30/18 01:59) Acetamin-Hydrocod 325-5 Mg ([place] 5-325 (04/30/18 02:45) Labs Laboratory Tests Test 04/30/18 00:15 04/30/18 00:58 Urine Color Red Urine Turbidity CLOUDY Urine pH 6.0 Urine Specific [place] 1.016 Urine Protein 100 mg/dL Urine Glucose (UA) NEG mg/dL Urine Ketones NEG mg/dL Urine Occult Blood LARGE Urine Nitrite NEG Urine Bilirubin NEG Urine Urobilinogen LESS THAN 2 mg/dL Urine Leukocyte Esterase SMALL Urine RBC /hpf Urine WBC /hpf Urine Squamous Epithelial Cells 2 /hpf Microscopic Urinalysis Comment CULTURE INDICATED White Blood Count 7.4 TH/MM3 Red Blood Count 4.24 MIL/MM3 Hemoglobin 12.3 GM/DL Hematocrit 37.1 % Mean Corpuscular Volume 87.5 FL Mean Corpuscular Hemoglobin 29.0 PG Mean Corpuscular Hemoglobin Concent 33.2 % Red Cell Distribution Width 14.9 % Platelet Count 238 TH/MM3 Mean Platelet Volume 7.3 FL Neutrophils (%) (Auto) 77.8 % Lymphocytes (%) (Auto) 12.8 % Monocytes (%) (Auto) 7.0 % Eosinophils (%) (Auto) 1.7 % Basophils (%) (Auto) 0.7 % Neutrophils # (Auto) 5.8 TH/MM3 Lymphocytes # (Auto) 0.9 TH/MM3 Monocytes # (Auto) 0.5 TH/MM3 Eosinophils # (Auto) 0.1 TH/MM3 Basophils # (Auto) 0.0 TH/MM3 CBC Comment DIFF FINAL Differential Comment Prothrombin Time 9.9 SEC Prothromb Time International Ratio 1.0 RATIO Activated Partial Thromboplast Time 25.9 SEC Blood Urea Nitrogen 15 MG/DL Creatinine 1.56 MG/DL Random Glucose 97 MG/DL Total Protein 8.2 GM/DL Albumin 4.4 GM/DL Calcium Level 8.8 MG/DL Magnesium Level 2.2 MG/DL Alkaline Phosphatase 71 U/L Aspartate Amino Transf (AST/SGOT) 12 U/L Alanine Aminotransferase (ALT/SGPT) 13 U/L Total Bilirubin 0.2 MG/DL Sodium Level 139 MEQ/L Potassium Level 4.1 MEQ/L Chloride Level 107 MEQ/L Carbon Dioxide Level 25.5 MEQ/L Anion Gap 7 MEQ/L Estimat Glomerular Filtration Rate 37 ML/MIN Lactic Acid Level 1.0 mmol/L C-Reactive Protein LESS THAN 0.29 MG/DL Lipase 61 U/L Thyroid Stimulating Hormone 3rd Gen 1.860 uIU/ML [facility] Medical Decision Making Medical Screen Exam Complete: Yes Emergency Medical Condition: Yes Medical Record Reviewed: Yes Differential Diagnosis Symptomatic anemia, versus menorrhagia, versus dysmenorrhea, versus colitis Narrative Course During the course of the patient's emergency department visit, the patient's history, examination, and differential diagnosis were reviewed with the patient. The patient was placed on a real estate professor with oximetry and frequent blood pressure monitoring. The patient had IV access obtained and blood work sent for analysis. The patient had an EKG done on arrival that shows a heart rate of 82, QRS duration 138 ms with an intraventricular conduction delay, QTC 471 ms. The patient does wear a LifeVest. The patient was initially provided normal saline 1 L IV fluid bolus. The patient's laboratory studies were reviewed and remarkable for white count of 7.4, hemoglobin 12.3, platelets 238 was 77.8 neutrophils, CMP is remarkable for creatinine 1.56, AST 12, C-reactive protein is less than 0.29, lipase within normal limits, TSH within normal limits, lactic acid 1.0, PT PTT within normal limits, urinalysis shows large occult blood small leukocyte esterase and innumerable RBCs and WBCs, 2 squamous epithelial cells, culture indicated. The patient's white and red blood cells could be related to the patient's menstrual cycle, therefore at this point treatment for urinary tract infection was held pending culture. The patient was given Lortab 5 mg p.o. 1 for pain. Radiology studies were reviewed and remarkable for Last Impressions Abdomen/Pelvis CT 04/30/18 0000 Signed Impressions: CONCLUSION: Persistent biliary duct dilatation. This was present on the prior exam. No acute abnormality was noted on the patient's CT scan of the abdomen and pelvis. The patient is stable for discharge. I recommended close follow-up with the patient's primary care physician in the next 2 days for reexamination. The patient is resting comfortably and feels better, is alert and in no distress. The patient's results and examination findings were discussed with the patient. The repeat examination is unremarkable and benign. The history, exam, diagnostic testing, and current condition do not suggest any significant pathology to warrant further testing, continued ED treatment, admission, or surgical evaluation at this point. The vital signs have been stable. The patient does not have uncontrollable pain, intractable vomiting, or other significant symptoms. The patient's condition is stable and appropriate for discharge. The patient will pursue further outpatient evaluation with a primary care physician or other designated or consulting physician as indicated in the discharge instructions. The patient is instructed to report back to the emergency department immediately for reexamination in the mean time if she develops any new or worsening signs or symptoms. The patient expressed understanding and was agreeable with this plan. Diagnosis Primary Impression: Abdominal pain Qualified Codes: R10.30 - Lower abdominal pain, unspecified Additional Impression: Dysmenorrhea Referrals: Primary Care Physician 2 days Patient Instructions: Abdominal Pain (ED), Dysmenorrhea (ED), General Instructions Med/Other Pt SpecificInfo: Prescription(s) given Disposition: 01 DISCHARGE HOME Condition: Stable Brenna Payan MD Apr 30, 2018 00:02
[2018-04-30 00:34] LABS: BILIRUBIN, URINE NEG (NEG); BLOOD, URINE LARGE (NEG); GLUCOSE,URINE NEG (NEG); KETONE, URINE NEG (NEG); NITRITE,URINE NEG (NEG); SQUAMOUS EPITHELIAL CELL URINE 2 /hpf (0-5); URINE COLOR Red (YELLW/STRAW); URINE LEUKOCYTE ESTERASE SMALL (NEG)
[2018-04-30 01:09] VITALS: RESP 20; O2SAT 99
[2018-04-30 01:20] LABS: AUTOMATED NEUTROPHIL # 5.8 TH/MM3 (1.8-7.7); BASOPHIL % 0.7 % (0.0-2.0); EOSINOPHIL # 0.1 TH/MM3 (0-0.4); EOSINOPHIL % 1.7 % (0.0-4.0); HEMATOCRIT 37.1 % (35.0-46.0); HEMOGLOBIN 12.3 GM/DL (11.6-15.3); LYMPH % 12.8 % (9.0-44.0); LYMPHOCYTE # 0.9 TH/MM3 (1.0-4.8); MEAN CELL VOLUME 87.5 FL (80.0-100.0); MEAN CORPUSCULAR HGB CONC 33.2 % (32.0-36.0); MEAN PLATELET VOLUME 7.3 FL (7.0-11.0); MONOCYTE # 0.5 TH/MM3 (0-0.9); NEUT % 77.8 % (16.0-70.0); PLATELET COUNT 238 TH/MM3 (150-450); RED BLOOD COUNT 4.24 MIL/MM3 (4.00-5.30); RED CELL DISTRIBUTION WIDTH 14.9 % (11.6-17.2); WHITE BLOOD COUNT 7.4 TH/MM3 (4.0-11.0)
[2018-04-30 01:23] LABS: PROTHROMBIN TIME - PATIENT 9.9 SEC (9.8-11.6)
[2018-04-30 01:29] LABS: ALBUMIN 4.4 GM/DL (3.4-5.0); ALT (GPT) 13 U/L (10-53); AST (GOT) 12 U/L (15-37); BICARBONATE 25.5 MEQ/L (21.0-32.0); BLOOD UREA NITROGEN 15 MG/DL (7-18); CALCIUM 8.8 MG/DL (8.5-10.1); CHLORIDE 107 MEQ/L (98-107); CREATININE 1.56 MG/DL (0.50-1.00); GLOMERULAR FILTRATION RATE 37 ML/MIN (>89); GLUCOSE,RANDOM 97 MG/DL (74-106); MAGNESIUM 2.2 MG/DL (1.5-2.5); SODIUM (NA) 139 MEQ/L (136-145)
[2018-04-30 01:38] LABS: ALKALINE PHOSPHATASE 71 U/L (45-117); C-REACTIVE PROTEIN LESS THAN 0.29 MG/DL (0.00-0.30); TOTAL BILIRUBIN ADULT 0.2 MG/DL (0.2-1.0); TOTAL PROTEIN 8.2 GM/DL (6.4-8.2)
[2018-04-30] MEDS ORDERED: IODIXANOL 320 MG/ML 10 ML VIAL (for Rad CT) IVCONTRAST ONE (01:59)
--- NOTE | 2018-04-30 02:15 | RADRPT ---
EXAM DATE: 04/30/2018 2:01 AM EDT AGE/SEX: 42 years / Female INDICATIONS: Abdominal pain. CLINICAL DATA: This is the patient's initial encounter. Patient reports that signs and symptoms have been present for 1 day and indicates a pain score of 7/10. MEDICAL/SURGICAL HISTORY: Crohn's disease. Renal insufficiency. Gastroparesis. Lupus, Hypert ension, Brugada syndrome Appendectomy. Defibrillator. Partial hysterectomy; ectopic , Defi brillator removed (infection) ORAL CONTRAST: No oral contrast ingested. RADIATION DOSE: 6.73 CTDI (mGy) COMPARISON: [facility] [place], CT ABDOMEN & PELVIS W CONTRAST, 07/29/2017. . TECHNIQUE: Multiple contiguous axial images were obtained through the abdomen and pelvis following b olus infusion of 50 ml Visipaque 320 (iodixanol) nonionic water-soluble contrast as a single exam d ose. No oral contrast ingested. Using automated exposure control and adjustment of the mA and/or kV according to patient size, radiation dose was kept as low as reasonably achievable to obtain optimal diagnostic quality images. DICOM format image data is available electronically for review and compar martin. FINDINGS: Lower Lungs: The visualized lower lungs are clear. Liver: The liver has a homogeneous density without space-occupying lesion. There is persistent dilata tion of the central intrahepatic biliary ducts. The common bile duct is dilated measuring 1.2 cm. Thi s appearance is unchanged. The gallbladder is unremarkable. Spleen: Homogeneous density without enlargement. Pancreas: Unremarkable without mass or calcification. Kidneys: Normal in size and shape. No evidence of mass or hydronephrosis. Adrenal Glands: Unremarkable. Aorta: The aorta and proximal iliac vessels are grossly unremarkable without aneurysmal dilation. Bowel/Mesentery: The bowel loops are grossly unremarkable. The cecum and sigmoid colon have a normal configuration. Abdominal Wall: Intact. Retroperitoneum: No evidence of adenopathy in the retrocrural, para-aortic, or deep pelvic regions. Bladder: Contours are smooth. Reproductive Organs: No abnormal masses or calcifications seen. There is free fluid seen in the cul- de-sac Inguinal: The inguinal region is unremarkable without evidence of adenopathy. Bony Structures: Unremarkable. CONCLUSION: Persistent biliary duct dilatation. This was present on the prior exam. Electronically signed by: Brian Loyd MD 04/30/2018 2:13 AM EDT
[2018-04-30] MEDS ORDERED: ACETAMINOPHEN/HYDROcodone 325 MG/5 MG TAB PO ONE (02:45)
--- NOTE | 2018-04-30 22:59 | EKG ---
Date Performed: 04/30/2018 Time Performed: 01:32:19 PTAGE: 42 years EKG: Sinus rhythm WITH FIRST DEGREE AV BLOCK INTRAVENTRICULAR CONDUCTION DELAY ABNORMAL ECG PREVIOUS TRACING : 04/26/2018 18.39 Since the previous tracing, no significant change noted DOCTOR: Sharath English Interpretating Date/Time 04/30/2018 22:58:30
== END 2018-04-30 03:41 | disposition home or self-care (01) ==
LOC: NEPC 23:45
DX: R10.30 Lower abdominal pain, unspecified (principal); N94.6 Dysmenorrhea, unspecified; R11.2 Nausea with vomiting, unspecified; R94.31 Abnormal electrocardiogram [ECG] [EKG]; K21.9 Gastro-esophageal reflux disease without esophagitis; E07.9 Disorder of thyroid, unspecified; N18.9 Chronic kidney disease, unspecified; I12.9 Hypertensive chronic kidney disease with stage 1 through stage 4 chronic kidney disease, or unspecified chronic kidney disease; Z86.79 Personal history of other diseases of the circulatory system; Z87.19 Personal history of other diseases of the digestive system; Z87.448 Personal history of other diseases of urinary system; Z86.2 Personal history of diseases of the blood and blood-forming organs and certain disorders involving the immune mechanism; Z86.59 Personal history of other mental and behavioral disorders
CPT/HCPCS: 74177; 80053; 81001; 83605; 83690; 83735; 84443; 84703; 85025; 85610; 85730; 86140; 87086; 93005; 96360; 96361; 99285; J7030; Q9967

== ENCOUNTER 2018-06-07 09:54 | Observation (INO) ==
[2018-06-07 10:33] LABS: Baso % (Auto) 0.3 % (0.0-2.0); Eos # (Auto) 0.4 th/mm3 (0.0-0.4); Hematocrit 35.7 % (35.0-46.0); Hemoglobin 11.7 gm/dL (11.6-15.3); Lymph # (Auto) 1.1 th/mm3 (1.0-4.8); Lymph % (Auto) 8.4 % (9.0-44.0); Mean Corpuscular HGB Conc 32.7 % (32.0-36.0); Mean Corpuscular Hemoglobin 28.7 pg (27.0-34.0); Mean Corpuscular Volume 87.9 fL (80.0-100.0); Mean Platelet Volume 7.4 fL (7.0-11.0); Mono % (Auto) 7.3 % (0.0-8.0); Neut # (Auto) 10.8 th/mm3 (1.8-7.7); Platelet Count 198 th/mm3 (150-450); Red Blood Count 4.07 mil/mm3 (4.00-5.30); Red Cell Distribution Width 15.3 % (11.6-17.2); White Blood Count 13.3 th/mm3 (4.0-11.0)
--- NOTE | 2018-06-07 10:41 | ED ---
HPI General Chief Complaint: Chest Pain Stated Complaint: Chest pain Time Seen by Provider: 06/07/18 10:13 History of Present Illness HPI narrative: This is a 42-year-old female with a history of systemic lupus, Crohn's disease, Brugada syndrome, who presents today with complaints of chest pain and abdominal pain with nausea vomiting. Patient states he seen here 2 days ago for the same. She states that when she returned home, she started experiencing the symptoms again. The patient also reports that her AICD vest that she has is not working properly. She reports that the wrap was supposed to come over to her house today to interrogated. She presents today via EMS and does not have the best with her. She reports that she is been retaining fluid. She reports that she has had abdominal swelling and swelling of her bilateral legs. Patient reports the chest pain as substernal from her throat down to her epigastrium. She states that she has occasional blood in her stool which is not new. She reports this is secondary to her Crohn's disease. She reports the pain as an 8-9 out of 10 on the pain scale. Complete Quality Measures for STEMI Alert Patients Related Data Home Medications Medication Instructions Recorded Confirmed levothyroxine [Synthroid] 112 mcg PO DAILY 05/08/18 06/07/18 magnesium 100 mg PO QID 05/08/18 06/07/18 ondansetron HCl [Zofran] 4 mg PO QID PRN MDD 45mg 05/08/18 06/07/18 pantoprazole [Protonix] 40 mg PO DAILY 05/08/18 06/07/18 potassium chloride 40 meq PO QID 05/08/18 06/07/18 potassium phosphate, monobasic 1,000 mg PO TID 05/08/18 06/07/18 [K-Phos Original] prednisone 30 mg PO DAILY 05/08/18 06/07/18 spironolactone 25 mg PO DAILY 05/08/18 06/07/18 cholecalciferol (vitamin D3) 3,000 unit PO 2XWEEK 06/07/18 06/07/18 [Vitamin D3] Previous Rx's Medication Instructions Recorded diazepam [Valium] 10 mg PO Q8HR PRN tab 05/09/18 morphine 15 mg PO Q8HR PRN tab 05/09/18 Allergies Allergy/AdvReac Type Severity Reaction Status Date / Time cephalexin Allergy Severe RASH,SWELLI Verified 06/03/18 21:28 NG Fish Containing Products Allergy Severe SWELLING Verified 06/03/18 21:28 IN THROAT, SOB ketorolac Allergy Severe RASH Verified 06/03/18 21:28 penicillin G Allergy Severe RASH,SWELLI Verified 06/03/18 21:28 NG prochlorperazine Allergy Mild DYSTONIC Verified 06/03/18 21:28 REACTION promethazine Allergy Mild DYSTONIC Verified 06/03/18 21:28 REACTION Review of Systems Except as stated in HPI: all other systems reviewed are negative Constitutional Denies chills and Denies fever(s) Eyes Reports system reviewed and no additional complaints, except as docu ENT Reports system reviewed and no additional complaints, except as docu Cardiovascular Reports chest pain, Denies rapid heart rate, Reports edema, Denies dyspnea, Reports dyspnea on exertion and Reports other (2 previous infected AICD's. Currently using a AICD vest at home. Patient does not have the best with her.) Respiratory Denies cough, Denies dyspnea and Reports dyspnea on exertion Gastrointestinal Reports nausea, Reports vomiting and Reports other (Blood in her stool.) Genitourinary Denies hematuria and Denies dysuria Musculoskeletal Denies back pain, Denies myalgias and Reports tingling Integumentary/Breasts Reports system reviewed and no additional complaints, except as docu Neurologic Denies headache(s), Reports tingling and Reports tremor(s) PMFSH Social History Social History Substance History: No History of Abuse Second Hand Smoke Exposure: No Smoking Status: Never smoker How Often Do You Have a Drink Containing Alcohol: Monthly or less Recent Travel in [facility] within the Last 8 Weeks: No Recent Out of Country Travel within the Last 8 Weeks: No Immunization History Tetanus Immunization: <5 Years Hx Influenza Vaccine This Season: No Exam Narrative Exam Narrative: GENERAL: Well-developed well-nourished female in no acute respiratory distress. SKIN: Focused skin assessment warm/dry. HEAD: Atraumatic. Normocephalic. EYES: No scleral icterus. No injection or drainage. ENT: No nasal bleeding or discharge. Mucous membranes pink and moist. NECK: Trachea midline. Supple. CARDIOVASCULAR: Regular rate and rhythm. No murmur appreciated. RESPIRATORY: No accessory muscle use. Clear to auscultation. Breath sounds equal bilaterally. GASTROINTESTINAL: Abdomen soft, non-tender, nondistended. Hepatic and splenic margins not palpable. Rectal examination in the presence of the nurse showed brown stool that was heme-negative. MUSCULOSKELETAL: No obvious deformities. No clubbing. No cyanosis. Trace pretibial edema. NEUROLOGICAL: Awake and alert. No obvious cranial nerve deficits. Motor grossly within normal limits. Normal speech. Course Initial Documented Vital Signs Temperature 98.5 F 06/07/18 10:08 Pulse Rate 79 06/07/18 10:08 Respiratory Rate 16 06/07/18 10:08 Blood Pressure 123/68 06/07/18 10:08 Pulse Oximetry 97 06/07/18 10:08 Last Documented Vital Signs Temperature 98.5 F 06/07/18 10:08 Pulse Rate 77 06/07/18 13:54 Respiratory Rate 18 06/07/18 13:54 Blood Pressure 139/75 06/07/18 17:07 Pulse Oximetry 98 06/07/18 13:54 Medical Decision Making [facility] Narrative Medical decision making narrative: This is a 42-year-old female with history of systemic lupus erythematous, Crohn's disease, who presents today with complaints of chest pain and abdominal pain. Patient reports diarrhea with reported blood in her stool. Patient's rectal examination here is heme negative for occult blood. The patient is also noted to have low potassium. She will be admitted to the hospital under observation. Case was discussed with Dr. Hair who is in agreement. Differential Diagnosis Differential Diagnosis: Metabolic derangement versus GI bleed versus cardiac dysrhythmia Lab Data Result diagrams: 06/07/18 10:24 06/07/18 10:24 Lab Results 06/07/18 06/07/18 06/07/18 Range/Units 10:24 10:24 10:30 WBC 13.3 H (4.0-11.0) th/mm3 RBC 4.07 (4.00-5.30) mil/mm3 Hgb 11.7 (11.6-15.3) gm/dL Hct 35.7 (35.0-46.0) % MCV 87.9 (80.0-100.0) fL MCH 28.7 (27.0-34.0) pg MCHC 32.7 (32.0-36.0) % RDW 15.3 (11.6-17.2) % Plt Count 198 (150-450) th/mm3 MPV 7.4 (7.0-11.0) fL Neut % (Auto) 81.0 H (16.0-70.0) % Lymph % (Auto) 8.4 L (9.0-44.0) % [place] % (Auto) 7.3 (0.0-8.0) % Eos % (Auto) 3.0 (0.0-4.0) % Baso % (Auto) 0.3 (0.0-2.0) % Neut # (Auto) 10.8 H (1.8-7.7) th/mm3 Lymph # (Auto) 1.1 (1.0-4.8) th/mm3 [place] # (Auto) 1.0 H (0.0-0.9) th/mm3 Eos # (Auto) 0.4 (0.0-0.4) th/mm3 Baso # (Auto) 0.0 (0.0-0.2) th/mm3 WBC Differential . Differential Comment Auto diff final Sodium 139 (136-145) meq/L Potassium 3.5 (3.5-5.1) meq/L Chloride 103 (98-107) meq/L Carbon Dioxide 27.5 (21.0-32.0) meq/L Anion Gap 9 (5-15) meq/L BUN 25 H (7-18) mg/dL Creatinine 2.20 H (0.50-1.00) mg/dL Estimated GFR 25 L (>89) mL/min Random Glucose 116 H (74-106) mg/dL Calcium 9.0 (8.5-10.1) mg/dL Total Bilirubin 0.3 (0.2-1.0) mg/dL AST 22 (15-37) U/L ALT 21 (10-53) U/L Alkaline Phosphatase 72 (45-117) U/L Total Creatine Kinase 92 (26-192) U/L Troponin I Less than 0.02 L (0.02-0.05) ng/mL Total Protein 7.6 D (6.4-8.2) g/dL Albumin 4.0 (3.4-5.0) g/dL Lipase 64 L (73-393) U/L Urine Color Yellow (Yellw/Straw) Urine Clarity Hazy H (Clear) Urine pH 5.0 (5.0-8.5) Ur Specific [place] 1.016 (1.002-1.035) Urine Protein 30 H (Neg-Trace) mg/dL Urine Glucose (UA) Negative (Negative) mg/dL Urine Ketones Negative (Negative) mg/dL Urine Occult Blood Small H (Negative) Urine Nitrate Negative (Negative) Urine Bilirubin Negative (Negative) Urine Urobilinogen Less than 2 (Less than 2) mg/dL Ur Leukocyte Esterase Negative (Negative) Urine RBC 2 (0-3) /hpf Urine WBC 5 (0-5) /hpf Ur Squamous Epith Cells 10 (0-5) /hpf Hyaline Casts 32 (0-3) /lpf Micro UA Comment Culture not ind Urine Culture Comments Culture not ind Imaging Data Radiologist's impression: Chest X-Ray 06/07/18 10:15 CONCLUSION: No acute intrathoracic disease. Stable examination. Discharge Plan Discharge Disposition Patient Disposition: 30 Still Patient Discharge Details Diagnosis: Atypical chest pain, Hypokalemia due to loss of potassium, Acute kidney injury superimposed on CKD, SLE (systemic lupus erythematosus), Diarrhea Physicians Team ED Provider: Jhon Gan Attending Provider: Tin Hair Discharge Interventions Interventions: Vital Signs Last Done: 06/07/18 13:54 Status ED Status: Admitted Observation Patient
[2018-06-07 10:55] LABS: Alanine Aminotransferase 21 U/L (10-53); Anion Gap 9 meq/L (5-15); Aspartate Aminotransferase 22 U/L (15-37); Blood Urea Nitrogen 25 mg/dL (7-18); Carbon Dioxide 27.5 meq/L (21.0-32.0); Chloride 103 meq/L (98-107); Glomerular Filtration Rate 25 mL/min (>89); Glucose,Random 116 mg/dL (74-106); Lipase 64 U/L (73-393); Potassium 3.5 meq/L (3.5-5.1); Sodium 139 meq/L (136-145)
[2018-06-07 10:58] LABS: Alkaline Phosphatase 72 U/L (45-117); Total Protein 7.6 g/dL (6.4-8.2)
[2018-06-07 11:01] LABS: Creatine Kinase 92 U/L (26-192)
[2018-06-07 11:07] LABS: Bilirubin,Urine Negative (Negative); Clarity,Urine Hazy (Clear); Color,Urine Yellow (Yellw/Straw); Glucose,Urine (UA) Negative (Negative); Hyaline Casts,Urine 32 /lpf (0-3); Leukocyte Esterase,Urine Negative (Negative); Nitrite,Urine Negative (Negative); Specific Gravity,Urine 1.016 (1.002-1.035); Squamous Epithelial Cell,Urine 10 /hpf (0-5)
--- NOTE | 2018-06-07 11:12 | XR ---
EXAM DATE: 06/07/2018 10:56 AM EDT AGE/SEX: 42 years / Female INDICATIONS: Chest and abdomen pain, vomiting. CLINICAL DATA: This is the patient's initial encounter. Patient reports that signs and symptoms have been present for 3 days and indicates a pain score of 8/10. MEDICAL/SURGICAL HISTORY: . Brugada syndrome, lupus . partial [place] [facility] [place]. . FINDINGS: A single AP view of the chest demonstrates the lungs to be symmetrically aerated without evidence of mass, infiltrate or effusion. The cardiomediastinal contours are unremarkable. Osseous structures a re intact. CONCLUSION: No acute intrathoracic disease. Stable examination. Electronically signed by: Juan Pablo Tracy MD 06/07/2018 11:11 AM EDT
[2018-06-07] MEDS ORDERED: HYDROmorphone PF Inj 2 MG/ML Vial IV.PUSH ONE (11:35)
--- NOTE | 2018-06-07 13:40 | ECG ---
Date Performed: 06/07/2018 Time Performed: 10:06:01 PTAGE: 42 years EKG: Sinus rhythm WITH FIRST DEGREE AV BLOCK INTRAVENTRICULAR CONDUCTION DELAY ABNORMAL ECG Since the PREVIOUS TRACING , no significant change noted PREVIOUS TRACING DOCTOR: Sonido Michelle Interpretating Date/Time 06/07/2018 13:39:42
[2018-06-07] MEDS ORDERED: Acetaminophen 325 MG Tablet PO PRN (15:49)
[2018-06-07] MEDS ORDERED: Loperamide 2 MG Capsule PO PRN (15:52)
[2018-06-07] MEDS ORDERED: HYDROmorphone PF Inj 0.5 MG/0.5 ML Syringe IV.PUSH PRN (15:55)
--- NOTE | 2018-06-07 16:08 | P.HP ---
History of Present Illness Service: 42-year-old female with a history of systemic lupus erythematous in addition to hypokalemia, Crohn's, renal disease, etc. She presents to the ER today complaining of malaise, ankle edema, diarrhea. She states that she has been on and off feeling terribly for the last 3 days and in fact was here 3 days ago with abdominal bloating. Today she experienced a combination of abdominal pain , chest pain and onset of diarrhea a few hours prior to admission. 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 Hemoccult workup in the ER was negative. She was diagnosed with lupus little over a year ago and has a fairly serious case that involves multiple organ systems including GI, nerve, cardiac symptoms. She mentions that she assisted with a total release yesterday and is wondering if the turtles may have given her her current diarrhea. Primary Care Physician: Nadeem Felix Review of Systems Constitutional: Reports body ache(s), Reports fatigue, Reports malaise Eyes: Denies blind spots, Denies blurry vision, Denies bulging eyes, Denies change in vision, Denies double vision, Denies discharge, Denies dry eyes, Denies floaters, Denies irritation, Denies itchy eyes, Denies loss of vision, Denies pain, Denies requires corrective lenses, Denies sensitivity to light, Denies other Cardiovascular: Reports chest pain, Reports chest pain at rest, Reports chest pain with activity, Reports generalized swelling, Denies fast heart rate, Denies irregular heart rhythm, Denies radiating jaw, neck or arm pain, Denies rapid, pounding, or irregular heartbeat, Denies shortness of breath, Denies shortness of breath with activity, Denies slow heart rate Respiratory: Denies change in phlegm color, Denies chest congestion, Denies cough, Denies coughing up blood, Denies excessive phlegm production, Denies pain on inspiration, Denies pain with cough, Denies shortness of breath, Denies shortness of breath with activity, Denies snoring, Denies stridor, Denies wheezing, Denies other Gastrointestinal: Reports abdominal pain, Reports bloating, Reports change in bowel habits, Reports loose stools, Reports nausea, Denies bright, red blood in stools, Denies coffee ground vomit, Denies constipation, Denies excessive passing of gas, Denies feeling full early Genitourinary: Denies abnormal periods, Denies abnormal vaginal bleeding, Denies absent period, Denies bleeding between periods, Denies blood in urine, Denies difficulty starting urination, Denies difficulty urinating, Denies dribbling after urination, Denies frequent nighttime urination, Denies genital itching, Denies genital lesions, Denies heavy periods, Denies hot flashes, Denies light periods, Denies nipple discharge, Denies painful intercourse, Denies painful periods, Denies painful urination, Denies pelvic pain, Denies prolapse symptoms, Denies sexual problems, Denies side pain, Denies urinary incontinence, Denies urinary urgency, Denies vaginal discharge, Denies vaginal dryness, Denies vaginal odor, Denies vaginal itching, Denies other Musculoskeletal: Reports body aches, Reports joint pain, Reports joint swelling Skin/Breast: Denies acne, Denies bleeding lesions, Denies boil, Denies breast swelling, Denies breast skin changes, Denies breast pain, Denies breast lump, Denies change in breast shape, Denies change in hair, Denies change in skin color, Denies changing lesions, Denies dry skin, Denies excessive hair growth, Denies hair loss, Denies itching, Denies lesions, Denies nail changes, Denies new lesions, Denies nipple discharge, Denies non-healing lesions, Denies redness , Denies sensitivity to light, Denies rash, Denies skin pain, Denies skin ulcer , Denies sores, Denies stretch pizano, Denies unusual bruising, Denies wounds, Denies yellowing of the skin, Denies other Neurologic: Reports restless legs, Reports tremor(s), Denies numbness, Denies unsteadiness Psychiatric: Denies abnormal sleep pattern, Denies anxiety, Denies behavioral changes, Denies change in appetite, Denies change in sex drive, Denies confusion , Denies depression, Denies difficulty concentrating, Denies hearing things others do not hear, Denies hopelessness, Denies irritability, Denies lack of enjoyment, Denies memory loss, Denies mood swings, Denies panic attacks, Denies paranoia, Denies seeing things others do not see, Denies sensing things others do not sense, Denies tactile hallucinations, Denies thoughts of hurting/killing others, Denies thoughts of hurting/killing yourself, Denies other Endocrine: Denies cold intolerance, Denies excessive sweating, Denies flushing, Denies heat intolerance, Denies increased hunger, Denies increased thirst, Denies increased urination, Denies rapid, pounding, or irregular heartbeat, Denies other PMFSH - History History 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, [employer]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 - Medical History Medical History: Medical History (Last Reviewed 06/03/18 @ 23:03 by BELEN Clement) Brugada syndrome Crohn's disease Endometriosis Esophagitis Gastroparesis Hypokalemia Hypothyroidism Interstitial cystitis Lupus Renal disease - Surgical History Surgical History: Surgical History (Last Reviewed 06/03/18 @ 23:03 by BELEN Clement) History of appendectomy History of partial hysterectomy - Tobacco History Second Hand Smoke Exposure: No Smoking Status: Never smoker - Alcohol History How Often Do You Have a Drink Containing Alcohol: Monthly or less - Substance Use History Substance History: No History of Abuse - Travel History Recent Travel in the [facility] Within the Last 8 Weeks: No Recent Travel Out of the Country Within the Last 8 Weeks: No - Immunization History Tetanus Immunization: <5 Years Hx Influenza Vaccine This Season: No Medications and Allergies Active Medications: Active Medications Acetaminophen (Tylenol) 650 mg PO Q4H PRN PRN Reason: Temp > 100.4 Diazepam (Valium) 10 mg PO Q12H PRN PRN Reason: ANXIETY Heparin Sodium (Porcine) (Heparin Inj) 5,000 units SQ Q12H SHUKRI Loperamide HCl (Imodium) 2 mg PO Q4H PRN PRN Reason: DIARRHEA Sodium Chloride (Ns Flush) 2 ml IV.FLUSH PRN PRN PRN Reason: FLUSH AFTER USING IV ACCESS Temazepam (Restoril) 15 mg PO HS PRN PRN Reason: INSOMNIA Allergies Allergy/AdvReac Type Severity Reaction Status Date / Time cephalexin Allergy Severe RASH,SWELLI Verified 06/03/18 21:28 NG Fish Containing Products Allergy Severe SWELLING Verified 06/03/18 21:28 IN THROAT, SOB ketorolac Allergy Severe RASH Verified 06/03/18 21:28 penicillin G Allergy Severe RASH,SWELLI Verified 06/03/18 21:28 NG prochlorperazine Allergy Mild DYSTONIC Verified 06/03/18 21:28 REACTION promethazine Allergy Mild DYSTONIC Verified 06/03/18 21:28 REACTION Home Medications Medication Instructions Recorded Confirmed Type levothyroxine [Synthroid] 112 mcg PO DAILY 05/08/18 06/07/18 History magnesium 100 mg PO QID 05/08/18 06/07/18 History ondansetron HCl [Zofran] 4 mg PO QID PRN MDD 45mg 05/08/18 06/07/18 History pantoprazole [Protonix] 40 mg PO DAILY 05/08/18 06/07/18 History potassium chloride 40 meq PO QID 05/08/18 06/07/18 History potassium phosphate, monobasic 1,000 mg PO TID 05/08/18 06/07/18 History [K-Phos Original] prednisone 30 mg PO DAILY 05/08/18 06/07/18 History spironolactone 25 mg PO DAILY 05/08/18 06/07/18 History cholecalciferol (vitamin D3) 3,000 unit PO 2XWEEK 06/07/18 06/07/18 History [Vitamin D3] Exam Vital signs: Vital Signs 06/07/18 10:08 06/07/18 10:32 06/07/18 13:54 Temperature 98.5 F Pulse Rate 79 77 Respiratory Rate 16 18 Blood Pressure 123/68 128/69 Pulse Oximetry 97 97 98 Intake & Output 06/06/18 06/07/18 06/07/18 18:59 06:59 18:59 Weight 77.111 kg Narrative: GENERAL: AAOx3, anxious, uncomfortable, adequate nutrition SKIN: Warm and dry, no rashes. HEAD: Atraumatic. Normocephalic. EYES: Pupils equal, round, reactive to light. No scleral icterus. No injection or drainage. ENT: No nasal bleeding or discharge. Moist mucous membranes. Nonerythematous oropharynx. NECK: Trachea midline. No JVD. Thyroid size within normal limits. CARDIOVASCULAR: Regular rate and rhythm. No murmur, no gallops, no rubs. RESPIRATORY: Clear and equal to auscultation bilaterally. No crackles, no wheezes. No accessory muscle use. GASTROINTESTINAL: Abdomen soft, mild diffuse tenderness, nondistended, normal active bowel sounds. Hepatic and splenic margins not palpable. MUSCULOSKELETAL: Extremities without clubbing or cyanosis. No obvious deformities. No edema. NEUROLOGICAL: Awake and alert. No obvious cranial nerve deficits. Motor grossly within normal limits. No focal deficits. Five out of 5 muscle strength in the arms and legs. Normal speech. Sporadic twitching of musculature most notable in hands PSYCHIATRIC: Appropriate mood and affect; insight and judgment normal. Results - Labs CBC & Chem 7: 06/07/18 10:24 06/07/18 10:24 Labs: Laboratory Results - last 24 hr 06/07/18 06/07/18 06/07/18 10:24 10:24 10:30 WBC 13.3 H RBC 4.07 Hgb 11.7 Hct 35.7 MCV 87.9 MCH 28.7 MCHC 32.7 RDW 15.3 Plt Count 198 MPV 7.4 Neut % (Auto) 81.0 H Lymph % (Auto) 8.4 L [place] % (Auto) 7.3 Eos % (Auto) 3.0 Baso % (Auto) 0.3 Neut # (Auto) 10.8 H Lymph # (Auto) 1.1 [place] # (Auto) 1.0 H Eos # (Auto) 0.4 Baso # (Auto) 0.0 WBC Differential . Differential Comment Auto diff final Sodium 139 Potassium 3.5 Chloride 103 Carbon Dioxide 27.5 Anion Gap 9 BUN 25 H Creatinine 2.20 H Estimated GFR 25 L Random Glucose 116 H Calcium 9.0 Total Bilirubin 0.3 AST 22 ALT 21 Alkaline Phosphatase 72 Total Creatine Kinase 92 Troponin I Less than 0.02 L Total Protein 7.6 D Albumin 4.0 Lipase 64 L Urine Color Yellow Urine Clarity Hazy H Urine pH 5.0 Ur Specific [place] 1.016 Urine Protein 30 H Urine Glucose (UA) Negative Urine Ketones Negative Urine Occult Blood Small H Urine Nitrate Negative Urine Bilirubin Negative Urine Urobilinogen Less than 2 Ur Leukocyte Esterase Negative Urine RBC 2 Urine WBC 5 Ur Squamous Epith Cells 10 Hyaline Casts 32 Micro UA Comment Culture not ind Urine Culture Comments Culture not ind - Imaging Impressions Chest X-Ray 06/07/18 10:15 CONCLUSION: No acute intrathoracic disease. Stable examination. Caprini VTE Risk Assessment Caprini VTE Risk Assessment: Moderate/High Risk (score >= 2) Caprini Risk Assessment Model: Point Value = 1 Point Value = 2 Point Value = 3 Point Value = 5 Age 41-60 Minor surgery BMI > 25 kg/m2 Swollen legs Varicose veins or History of unexplained or recurrent spontaneous Oral contraceptives or hormone replacement Sepsis (< 1 month) Serious lung disease, including pneumonia (< 1 month) Abnormal pulmonary function Acute myocardial infarction Congestive heart failure (< 1 month) History of inflammatory bowel disease Medical patient at bed rest Age 61-74 Arthroscopic surgery Major open surgery (> 45 min) Laparoscopic surgery (> 45 min) Malignancy Confined to bed (> 72 hours) Immobilizing plaster cast Central venous access Age >= 75 History of VTE Family history of VTE Factor V Leiden Prothrombin [id number] Lupus anticoagulant Anticardiolipin antibodies Elevated serum homocysteine Heparin-induced thrombocytopenia Other congenital or acquired thrombophilia Stroke (< 1 month) Elective arthroplasty Hip, pelvis, or leg fracture Acute spinal cord injury (< 1 month) Prophylaxis Regimen: Total Risk Factor Score Risk Level Prophylaxis Regimen 0-1 Low Early ambulation 2 Moderate Order ONE of the following: *Sequential Compression Device (SCD) *Heparin 5000 units SQ BID 3-4 Higher Order ONE of the following medications: *Heparin 5000 units SQ TID *Enoxaparin/Lovenox 40 mg SQ daily (WT < 150 kg, CrCl > 30 mL/min) *Enoxaparin/Lovenox 30 mg SQ daily (WT < 150 kg, CrCl > 10-29 mL/min) *Enoxaparin/Lovenox 30 mg SQ BID (WT < 150 kg, CrCl > 30 mL/min) AND/OR *Sequential Compression Device (SCD) 5 or more Highest Order ONE of the following medications: *Heparin 5000 units SQ TID (Preferred with Epidurals) *Enoxaparin/Lovenox 40 mg SQ daily (WT < 150 kg, CrCl > 30 mL/min) *Enoxaparin/Lovenox 30 mg SQ daily (WT < 150 kg, CrCl > 10-29 mL/min) *Enoxaparin/Lovenox 30 mg SQ BID (WT < 150 kg, CrCl > 30 mL/min) AND *Sequential Compression Device (SCD) Assessment and Plan - Plan Systemic lupus flareup She has a history of SLE that attacks multiple organ systems She presents with a variety of symptoms including cardiac, GI, neuro and renal We will cover empirically with a single dose of IV Solu-Medrol 125 mg 1, repeat if symptoms are abating on this dose Stat labs including ammonia level, sed rate, CRP If CRP or sed rate are elevated follow trend Abdominal pain with diarrhea She complains of bloating that caused her to come to the ER 3 days ago Onset of diarrhea was today, she denies fevers Occult stools were negative for any bleeding Abdominal pain is nonspecific She did have an exposure to turtles yesterday Most likely etiology is lupus flareup Cover for lupus flareup, consider Salmonella from turtles if diarrhea persists Imodium and IV fluids Chest pain and peripheral edema The edema has been present for more than a week, she states she gained 30 pounds in the last 5 days Consider lupus effect on the heart Echocardiogram ordered Consult cardiology if abnormal Muscle twitching May be blamed on electrolytes except that electrolytes are normal Ammonia level pending Consider lupus effect, covered with Solu-Medrol DVT prophylaxis Heparin
[2018-06-07] MEDS ORDERED: MethylPREDNISolone Sod Succinate Inj 125 MG/2 ML Vial IV.PUSH ONE (17:00)
[2018-06-07] MEDS: HYDROmorphone PF Inj 2 MG/ML Vial IV.PUSH PRN ×2 (17:17→21:31)
[2018-06-07] MEDS: Potassium Chloride Inj 10 MEQ in Sod Chloride 0.9% Inj 1,000 ML IV.CONT SCH (17:35)
[2018-06-07] MEDS: Heparin - SQ 10,000 UNITS/ML Vial SQ SCH (21:31)
[2018-06-07] MEDS: Temazepam 15 MG Capsule PO PRN (23:35)
[2018-06-08] MEDS: HYDROmorphone PF Inj 2 MG/ML Vial IV.PUSH PRN ×4 (02:42→23:22)
[2018-06-08 07:20] LABS: Hematocrit 33.3 % (35.0-46.0); Hemoglobin 10.9 gm/dL (11.6-15.3); Mean Corpuscular HGB Conc 32.9 % (32.0-36.0); Mean Corpuscular Hemoglobin 29.1 pg (27.0-34.0); Mean Corpuscular Volume 88.6 fL (80.0-100.0); Mean Platelet Volume 8.8 fL (7.0-11.0); Platelet Count 173 th/mm3 (150-450); Red Blood Count 3.76 mil/mm3 (4.00-5.30); Red Cell Distribution Width 15.2 % (11.6-17.2); White Blood Count 6.7 th/mm3 (4.0-11.0)
[2018-06-08 07:43] LABS: Alanine Aminotransferase 19 U/L (10-53); Albumin 3.3 g/dL (3.4-5.0); Anion Gap 7 meq/L (5-15); Aspartate Aminotransferase 17 U/L (15-37); Blood Urea Nitrogen 24 mg/dL (7-18); Calcium 8.6 mg/dL (8.5-10.1); Carbon Dioxide 26.2 meq/L (21.0-32.0); Chloride 109 meq/L (98-107); Glomerular Filtration Rate 36 mL/min (>89); Glucose,Random 148 mg/dL (74-106); Potassium 4.3 meq/L (3.5-5.1); Sodium 142 meq/L (136-145)
[2018-06-08 07:46] LABS: Alkaline Phosphatase 66 U/L (45-117); Total Protein 6.8 g/dL (6.4-8.2)
[2018-06-08] MEDS: Heparin - SQ 10,000 UNITS/ML Vial SQ SCH ×2 (09:14→20:51)
[2018-06-08] MEDS: predniSONE 10 MG Tablet PO SCH (10:03)
[2018-06-08] MEDS: Levothyroxine 112 MCG Tablet PO SCH (10:03)
[2018-06-08] MEDS: Spironolactone 25 MG Tablet PO SCH (10:03)
[2018-06-08] MEDS: Potassium Chloride Inj 10 MEQ in Sod Chloride 0.9% Inj 1,000 ML IV.CONT SCH (11:30)
[2018-06-08] MEDS: Potassium Phosphate 500 MG Soluble Tablet PO SCH ×2 (13:04→17:46)
[2018-06-08] MEDS: Magnesium Oxide 400 MG Tablet PO SCH (13:04)
--- NOTE | 2018-06-08 16:46 | P.PNIM ---
Subjective Interval history: 42-year-old female with a history of systemic lupus erythematous in addition to hypokalemia, Crohn's, renal disease, etc. She presents to the ER today complaining of malaise, ankle edema, diarrhea. She states that she has been on and off feeling terribly for the last 3 days and in fact was here 3 days ago with abdominal bloating. Today she experienced a combination of abdominal pain , chest pain and onset of diarrhea a few hours prior to admission. 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 Hemoccult workup in the ER was negative. She was diagnosed with lupus little over a year ago and has a fairly serious case that involves multiple organ systems including GI, nerve, cardiac symptoms. She mentions that she assisted with a TURTLE release yesterday and is wondering if the turtles may have given her her current diarrhea. 8-3 RENAL FUNCTIONS ARE IMPROVING WITH FLUIDS DW RN AND PT AND CM TOLERATING A DIET WANTS CHRONIC PAIN MEDS WILL FOLLOW AM LABS CONTINUE FLUIDS ADJUST PAIN MEDS Physical Exam Vital signs: Vital Signs 06/07/18 17:07 06/07/18 19:12 06/07/18 22:00 Temperature Pulse Rate 97 H 81 Respiratory Rate 20 Blood Pressure 139/75 137/76 Pulse Oximetry 96 06/07/18 22:46 06/07/18 23:00 06/08/18 00:00 Temperature 98.3 F 98.4 F Pulse Rate 76 74 72 Respiratory Rate 18 16 Blood Pressure 143/90 H 146/94 H Pulse Oximetry 96 98 06/08/18 01:00 06/08/18 02:00 06/08/18 03:00 Temperature Pulse Rate 64 68 67 Respiratory Rate Blood Pressure Pulse Oximetry 06/08/18 04:00 06/08/18 05:00 06/08/18 06:00 Temperature 97.6 F Pulse Rate 62 62 68 Respiratory Rate 16 Blood Pressure 123/80 Pulse Oximetry 95 06/08/18 07:00 06/08/18 08:00 06/08/18 09:00 Temperature 97.8 F Pulse Rate 68 78 76 Respiratory Rate 18 Blood Pressure 142/91 H Pulse Oximetry 95 06/08/18 10:00 06/08/18 11:00 06/08/18 12:00 Temperature 97.8 F Pulse Rate 74 70 71 Respiratory Rate 18 Blood Pressure 109/67 Pulse Oximetry 96 06/08/18 13:00 06/08/18 14:00 06/08/18 15:00 Temperature Pulse Rate 70 81 64 Respiratory Rate Blood Pressure Pulse Oximetry 06/08/18 16:00 Temperature 98.9 F Pulse Rate 56 L Respiratory Rate 17 Blood Pressure 93/56 L Pulse Oximetry 97 Intake & Output 06/07/18 06/08/18 06/08/18 18:59 06:59 18:59 Intake Total 240 / 240 1005 / 1005 Balance 240 / 240 1005 / 1005 Weight 77.111 kg 77.3 kg Intake: IV 1005 / 1005 KCl Inj 10 MEQ In NS Inj 1,000 1005 / 1005 ML @ 60 mls/hr IV.CONT .[id number] SHUKRI Rx#:[id number] Oral 240 / 240 Other: # Voids 8 Date of Last Bowel Movement 06/07/18 Narrative: GENERAL: AAOx3, LESS anxious, MUCH MORE COMFORTABLE TODAY, adequate nutrition SKIN: Warm and dry, no rashes. HEAD: Atraumatic. Normocephalic. EYES: Pupils equal, round, reactive to light. No scleral icterus. No injection or drainage. ENT: No nasal bleeding or discharge. Moist mucous membranes. Nonerythematous oropharynx. NECK: Trachea midline. No JVD. Thyroid size within normal limits. CARDIOVASCULAR: Regular rate and rhythm. No murmur, no gallops, no rubs.S1, S2 NO S3 OR S4 RESPIRATORY: Clear and equal to auscultation bilaterally. No crackles, no wheezes. No accessory muscle use. GASTROINTESTINAL: Abdomen soft, mild diffuse tenderness, nondistended, normal active bowel sounds. Hepatic and splenic margins not palpable. MUSCULOSKELETAL: Extremities without clubbing or cyanosis. No obvious deformities. No edema. NEUROLOGICAL: Awake and alert. No obvious cranial nerve deficits. Motor grossly within normal limits. No focal deficits. Five out of 5 muscle strength in the arms and legs. Normal speech. Sporadic twitching of musculature most notable in hands PSYCHIATRIC: INAppropriate mood and affect; insight and judgment ABnormal. Results - Labs CBC & Chem 7: 06/08/18 06:15 06/08/18 06:15 Laboratory Results - last 24 hr 06/07/18 06/07/18 06/07/18 20:30 20:30 20:30 WBC RBC Hgb Hct MCV MCH MCHC RDW Plt Count MPV ESR 17 Sodium Potassium Chloride Carbon Dioxide Anion Gap BUN Creatinine Estimated GFR Random Glucose Calcium Total Bilirubin AST ALT Alkaline Phosphatase Ammonia 30 C-Reactive Protein Less than 0.29 Total Protein Albumin 06/08/18 06/08/18 06:15 06:15 WBC 6.7 RBC 3.76 L Hgb 10.9 L Hct 33.3 L MCV 88.6 MCH 29.1 MCHC 32.9 RDW 15.2 Plt Count 173 MPV 8.8 ESR Sodium 142 Potassium 4.3 D Chloride 109 H Carbon Dioxide 26.2 Anion Gap 7 BUN 24 H Creatinine 1.60 H Estimated GFR 36 L Random Glucose 148 H Calcium 8.6 Total Bilirubin 0.3 AST 17 ALT 19 Alkaline Phosphatase 66 Ammonia C-Reactive Protein Total Protein 6.8 D Albumin 3.3 L D - Imaging Chest X-Ray 06/07/18 10:15 CONCLUSION: No acute intrathoracic disease. Stable examination. - Procedures NONE Assessment and Plan - Plan Systemic lupus flareup--DOES NOT APPEAR TO BE LUPUS FLARE UP She has a history of SLE that attacks multiple organ systems She presents with a variety of symptoms including cardiac, GI, neuro and renal We will cover empirically with a single dose of IV Solu-Medrol 125 mg 1, repeat if symptoms are abating on this dose Stat labs including ammonia level, sed rate, CRP-- ALL STABLE If CRP or sed rate are elevated follow trend- ALL STABLE Abdominal pain with diarrhea She complains of bloating that caused her to come to the ER 3 days ago Onset of diarrhea was today, she denies fevers Occult stools were negative for any bleeding Abdominal pain is nonspecific She did have an exposure to turtles yesterday Most likely etiology is lupus flareup Cover for lupus flareup, consider Salmonella from turtles if diarrhea persists- NOT IN THE RIGHT WINDOW OF TIME Imodium and IV fluids Chest pain and peripheral edema The edema has been present for more than a week, she states she gained 30 pounds in the last 5 days Consider lupus effect on the heart Echocardiogram ordered Consult cardiology if abnormal Muscle twitching May be blamed on electrolytes except that electrolytes are normal Ammonia level pending Consider lupus effect, covered with Solu-Medrol THINK POSSIBLE JUST DRUG SEEKING/HOSPITAL BEHAVIOR 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
[2018-06-08] MEDS: Morphine Sulfate 15 MG IR Tablet PO PRN (20:48)
[2018-06-08] MEDS: Temazepam 15 MG Capsule PO PRN (23:22)
[2018-06-09] MEDS: HYDROmorphone PF Inj 2 MG/ML Vial IV.PUSH PRN ×3 (06:11→19:59)
[2018-06-09] MEDS: Levothyroxine 112 MCG Tablet PO SCH (06:11)
[2018-06-09] MEDS: predniSONE 10 MG Tablet PO SCH (08:18)
[2018-06-09] MEDS: Spironolactone 25 MG Tablet PO SCH (08:19)
[2018-06-09] MEDS: Magnesium Oxide 400 MG Tablet PO SCH (08:19)
[2018-06-09] MEDS: Potassium Phosphate 500 MG Soluble Tablet PO SCH ×3 (08:20→18:07)
[2018-06-09] MEDS: Heparin - SQ 10,000 UNITS/ML Vial SQ SCH ×2 (08:21→20:31)
[2018-06-09] MEDS: Morphine Sulfate 15 MG IR Tablet PO PRN ×2 (09:24→18:07)
[2018-06-09 11:14] LABS: Hematocrit 34.6 % (35.0-46.0); Hemoglobin 10.9 gm/dL (11.6-15.3); Mean Corpuscular HGB Conc 31.5 % (32.0-36.0); Mean Corpuscular Hemoglobin 28.8 pg (27.0-34.0); Mean Corpuscular Volume 91.4 fL (80.0-100.0); Mean Platelet Volume 8.2 fL (7.0-11.0); Platelet Count 168 th/mm3 (150-450); Red Blood Count 3.79 mil/mm3 (4.00-5.30); Red Cell Distribution Width 15.5 % (11.6-17.2); White Blood Count 9.3 th/mm3 (4.0-11.0)
[2018-06-09 11:37] LABS: Alanine Aminotransferase 18 U/L (10-53); Albumin 2.4 g/dL (3.4-5.0); Amylase 46 U/L (25-115); Anion Gap 7 meq/L (5-15); Aspartate Aminotransferase 22 U/L (15-37); Blood Urea Nitrogen 21 mg/dL (7-18); Calcium 8.1 mg/dL (8.5-10.1); Chloride 108 meq/L (98-107); Glomerular Filtration Rate 37 mL/min (>89); Glucose,Random 96 mg/dL (74-106); Magnesium 1.9 mg/dL (1.5-2.5); Sodium 138 meq/L (136-145)
[2018-06-09 11:50] LABS: Alkaline Phosphatase 74 U/L (45-117); Free T4 (Free Thyroxine) 1.02 ng/dL (0.76-1.46); Total Protein 6.5 g/dL (6.4-8.2)
[2018-06-09 11:57] LABS: Eosinophils 3 % (0-4); Lymphocytes 29 % (9-44); Monocytes 1 % (0-8)
[2018-06-09 11:58] LABS: Ovalocytes 1+; Platelet Estimate Normal (Normal); Platelet Morphology Normal (Normal)
--- NOTE | 2018-06-09 15:33 | P.PNIM ---
Subjective Interval history: 42-year-old female with a history of systemic lupus erythematous in addition to hypokalemia, Crohn's, renal disease, etc. She presents to the ER today complaining of malaise, ankle edema, diarrhea. She states that she has been on and off feeling terribly for the last 3 days and in fact was here 3 days ago with abdominal bloating. Today she experienced a combination of abdominal pain , chest pain and onset of diarrhea a few hours prior to admission. 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 Hemoccult workup in the ER was negative. She was diagnosed with lupus little over a year ago and has a fairly serious case that involves multiple organ systems including GI, nerve, cardiac symptoms. She mentions that she assisted with a TURTLE release yesterday and is wondering if the turtles may have given her her current diarrhea. 8-3 RENAL FUNCTIONS ARE IMPROVING WITH FLUIDS DW RN AND PT AND CM TOLERATING A DIET WANTS CHRONIC PAIN MEDS WILL FOLLOW AM LABS CONTINUE FLUIDS ADJUST PAIN MEDS 8-4 having CONSTIPATION NOW HER AMMONIA LEVEL WAS ELEVATED - START LACTULOSE SCHEDULED STILL COMPLAINING OF SOME ABDOMINAL PAIN AM LABS CONTINUE FLUIDS STATES HAS HX OF GASTROPARESIS Physical Exam Vital signs: Vital Signs 06/08/18 16:00 06/08/18 17:00 06/08/18 18:00 Temperature 98.9 F Pulse Rate 56 L 68 67 Respiratory Rate 17 Blood Pressure 93/56 L Pulse Oximetry 97 06/08/18 19:00 06/08/18 20:00 06/08/18 21:00 Temperature 98.6 F Pulse Rate 69 74 74 Respiratory Rate 18 Blood Pressure 120/70 Pulse Oximetry 98 06/08/18 22:00 06/08/18 23:00 06/09/18 00:00 Temperature 98.7 F Pulse Rate 68 70 72 Respiratory Rate 16 Blood Pressure 137/88 Pulse Oximetry 98 06/09/18 01:00 06/09/18 02:00 06/09/18 03:00 Temperature Pulse Rate 76 70 70 Respiratory Rate Blood Pressure Pulse Oximetry 06/09/18 04:00 06/09/18 05:00 06/09/18 06:00 Temperature 98.2 F Pulse Rate 73 58 L 61 Respiratory Rate 18 Blood Pressure 128/77 Pulse Oximetry 99 06/09/18 07:00 06/09/18 08:00 06/09/18 09:00 Temperature 97.8 F Pulse Rate 61 68 71 Respiratory Rate 18 Blood Pressure 123/75 Pulse Oximetry 95 06/09/18 10:00 06/09/18 11:00 06/09/18 12:00 Temperature 98.4 F Pulse Rate 71 70 64 Respiratory Rate 18 Blood Pressure 117/88 Pulse Oximetry 100 06/09/18 13:00 06/09/18 13:44 06/09/18 14:00 Temperature Pulse Rate 65 60 Respiratory Rate 18 Blood Pressure Pulse Oximetry Intake & Output 06/08/18 06/09/18 06/09/18 18:59 06:59 18:59 Intake Total 1245 / 1245 240 / 240 Output Total 900 / 900 Balance 1245 / 1245 -660 / -660 Weight 77.2 kg Intake: IV 1005 / 1005 KCl Inj 10 MEQ In NS Inj 1,000 1005 / 1005 ML @ 60 mls/hr IV.CONT .[id number] SHUKRI Rx#:[id number] Oral 240 / 240 240 / 240 Output: Urine 900 / 900 Other: # Voids 2 Date of Last Bowel Movement 06/07/18 06/09/18 Narrative: GENERAL: AAOx3, LESS anxious, MUCH MORE COMFORTABLE TODAY, adequate nutrition SKIN: Warm and dry, no rashes. HEAD: Atraumatic. Normocephalic. EYES: Pupils equal, round, reactive to light. No scleral icterus. No injection or drainage. ENT: No nasal bleeding or discharge. Moist mucous membranes. Nonerythematous oropharynx. NECK: Trachea midline. No JVD. Thyroid size within normal limits. CARDIOVASCULAR: Regular rate and rhythm. No murmur, no gallops, no rubs.S1, S2 NO S3 OR S4 RESPIRATORY: Clear and equal to auscultation bilaterally. No crackles, no wheezes. No accessory muscle use. GASTROINTESTINAL: Abdomen soft, mild diffuse tenderness, nondistended, normal active bowel sounds. Hepatic and splenic margins not palpable. MUSCULOSKELETAL: Extremities without clubbing or cyanosis. No obvious deformities. No edema. NEUROLOGICAL: Awake and alert. No obvious cranial nerve deficits. Motor grossly within normal limits. No focal deficits. Five out of 5 muscle strength in the arms and legs. Normal speech. PSYCHIATRIC: INAppropriate mood and affect; insight and judgment ABnormal. Results - Labs CBC & Chem 7: 06/09/18 10:45 06/09/18 10:45 Laboratory Results - last 24 hr 06/09/18 06/09/18 06/09/18 10:11 10:45 10:45 WBC 9.3 RBC 3.79 L Hgb 10.9 L Hct 34.6 L MCV 91.4 MCH 28.8 MCHC 31.5 L RDW 15.5 Plt Count 168 MPV 8.2 Prelim Diff (Auto) Manual diff required WBC Differential Manual diff final Seg Neuts % (Manual) 67 Lymphocytes % (Manual) 29 Monocytes % (Manual) 1 Eosinophils % (Manual) 3 Abs Neuts (Manual) 6.2 Differential Comment . Platelet Estimate Normal Platelet Morphology Normal Ovalocytes 1+ H PT INR Sodium Potassium Chloride Carbon Dioxide Anion Gap BUN Creatinine Estimated GFR Random Glucose Hemoglobin A1c 5.0 Calcium Phosphorus Magnesium Total Bilirubin AST ALT Alkaline Phosphatase Ammonia Total Protein Albumin Amylase TSH Free T4 Eosinophil Stool Smear None seen 06/09/18 06/09/18 06/09/18 10:45 10:45 11:50 WBC RBC Hgb Hct MCV MCH MCHC RDW Plt Count MPV Prelim Diff (Auto) WBC Differential Seg Neuts % (Manual) Lymphocytes % (Manual) Monocytes % (Manual) Eosinophils % (Manual) Abs Neuts (Manual) Differential Comment Platelet Estimate Platelet Morphology Ovalocytes PT 10.0 INR 1.0 Sodium 138 Potassium 4.0 Chloride 108 H Carbon Dioxide 23.0 Anion Gap 7 BUN 21 H Creatinine 1.56 H Estimated GFR 37 L Random Glucose 96 Hemoglobin A1c Calcium 8.1 L Phosphorus 3.0 Magnesium 1.9 Total Bilirubin 0.3 AST 22 ALT 18 Alkaline Phosphatase 74 Ammonia 64 H Total Protein 6.5 Albumin 2.4 L D Amylase 46 TSH 3.620 Free T4 1.02 Eosinophil Stool Smear Microbiology 06/09/18 10:11 Stool Stool for WBCs - Final Rare WBC's - Imaging Chest X-Ray 06/07/18 10:15 CONCLUSION: No acute intrathoracic disease. Stable examination. - Procedures NONE Assessment and Plan - Plan Systemic lupus flareup--DOES NOT APPEAR TO BE LUPUS FLARE UP She has a history of SLE that attacks multiple organ systems She presents with a variety of symptoms including cardiac, GI, neuro and renal We will cover empirically with a single dose of IV Solu-Medrol 125 mg 1, repeat if symptoms are abating on this dose Stat labs including ammonia level, sed rate, CRP-- ALL STABLE If CRP or sed rate are elevated follow trend- ALL STABLE Abdominal pain with diarrhea She complains of bloating that caused her to come to the ER 3 days ago Onset of diarrhea was today, she denies fevers Occult stools were negative for any bleeding Abdominal pain is nonspecific She did have an exposure to turtles yesterday Most likely etiology is lupus flareup Cover for lupus flareup, consider Salmonella from turtles if diarrhea persists- NOT IN THE RIGHT WINDOW OF TIME STOP IMODIUM, CONTINUE IV fluids HAS CONSTIPATION AND [place] HAS HX OF GASTROPARESIS ELEVATED AMMONIA LEVEL-START LACTULOSE Chest pain and peripheral edema The edema has been present for more than a week, she states she gained 30 pounds in the last 5 days Consider lupus effect on the heart Echocardiogram ordered Consult cardiology if abnormal Muscle twitching May be blamed on electrolytes except that electrolytes are normal Ammonia level pending Consider lupus effect, covered with Solu-Medrol THINK POSSIBLE JUST DRUG SEEKING/HOSPITAL BEHAVIOR 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
[2018-06-09] MEDS: Temazepam 15 MG Capsule PO PRN (22:47)
[2018-06-10] MEDS: HYDROmorphone PF Inj 2 MG/ML Vial IV.PUSH PRN ×2 (02:01→08:28)
[2018-06-10] MEDS: Morphine Sulfate 15 MG IR Tablet PO PRN ×4 (03:53→21:12)
[2018-06-10] MEDS: Levothyroxine 112 MCG Tablet PO SCH (06:21)
[2018-06-10] MEDS: Potassium Phosphate 500 MG Soluble Tablet PO SCH ×3 (08:28→17:12)
[2018-06-10] MEDS: Magnesium Oxide 400 MG Tablet PO SCH (08:28)
[2018-06-10] MEDS: predniSONE 10 MG Tablet PO SCH (08:29)
[2018-06-10] MEDS ORDERED: MethylPREDNISolone Sod Succinate Inj 40 MG/ML Vial IV.PUSH ONE (08:29)
[2018-06-10] MEDS: Spironolactone 25 MG Tablet PO SCH (08:30)
[2018-06-10] MEDS: Heparin - SQ 10,000 UNITS/ML Vial SQ SCH ×2 (08:30→21:12)
--- NOTE | 2018-06-10 08:35 | P.PNIM ---
Subjective Interval history: Patient reports still not feeling well. She still reports chest pain, malaise, swelling, abdominal pain, constipation. She reports that she just recently took the lactulose and has not yet had a bowel movement. However, she reports that she feels her symptoms were slightly improved after Solu-Medrol IV. Thus, we agreed on another dose of IV Solu-Medrol today. Also, she asked me to switch her from a cardiac diet to regular basic diet, which I agreed to. Discussed discharge planning with patient. She does not feel comfortable enough to go home today. We discussed plan to trend down her ammonia and Cr and treat her symptomatically. Assuming continued improvement in symptoms, ammonia, and Cr, pt will be ready for d/c tomorrow. Patient reports a history of kidney disease and does not know her baseline creatinine. Physical Exam Vital signs: Vital Signs 06/09/18 09:00 06/09/18 10:00 06/09/18 11:00 Temperature Pulse Rate 71 71 70 Respiratory Rate Blood Pressure Pulse Oximetry 06/09/18 12:00 06/09/18 13:00 06/09/18 13:44 Temperature 98.4 F Pulse Rate 64 65 Respiratory Rate 18 18 Blood Pressure 117/88 Pulse Oximetry 100 06/09/18 14:00 06/09/18 15:00 06/09/18 16:00 Temperature 98.4 F Pulse Rate 60 58 L 64 Respiratory Rate 16 Blood Pressure 124/76 Pulse Oximetry 92 L 06/09/18 20:00 06/09/18 20:31 06/10/18 00:00 Temperature 98.4 F 98.3 F Pulse Rate 71 60 Respiratory Rate 18 16 18 Blood Pressure 156/95 H 101/53 L Pulse Oximetry 99 97 06/10/18 04:00 Temperature 98.3 F Pulse Rate 63 Respiratory Rate 18 Blood Pressure 114/70 Pulse Oximetry 96 Intake & Output 06/09/18 06/10/18 06/10/18 18:59 06:59 18:59 Intake Total 1440 / 1440 Output Total 1750 / 1750 500 / 500 Balance -310 / -310 -500 / -500 Weight 78.31 kg Intake: Oral 1440 / 1440 Output: Urine 1750 / 1750 500 / 500 Other: # Voids 1 Date of Last Bowel Movement 06/09/18 06/09/18 06/09/18 # Bowel Movements 1 Narrative: GENERAL: AAOx3, middle aged woman lying in bed in no acute distress SKIN: Warm and dry, no rashes. HEAD: Atraumatic. Normocephalic. EYES: Pupils equal, round, reactive to light. No scleral icterus. No injection or drainage. ENT: No nasal bleeding or discharge. Moist mucous membranes. NECK: Trachea midline. No JVD. No obvious thyromegaly. CARDIOVASCULAR: Regular rate and rhythm. No murmur, no gallops, no rubs.S1, S2 NO S3 OR S4 RESPIRATORY: Clear and equal to auscultation bilaterally. No crackles, no wheezes. No accessory muscle use. GASTROINTESTINAL: Abdomen soft, mild diffuse tenderness, nondistended, patient does seem to have some firmness palpated in the lower abdomen c/w impacted stool. normal active bowel sounds. Hepatic and splenic margins not palpable. MUSCULOSKELETAL: Extremities without clubbing or cyanosis. No obvious deformities. No edema. NEUROLOGICAL: Awake and alert. No obvious cranial nerve deficits. Motor and sensation grossly within normal limits. No focal deficits. Normal speech. Results - Labs CBC & Chem 7: 06/10/18 08:55 06/10/18 08:55 Laboratory Results - last 24 hr 06/09/18 06/09/18 06/09/18 10:11 10:45 10:45 WBC 9.3 RBC 3.79 L Hgb 10.9 L Hct 34.6 L MCV 91.4 MCH 28.8 MCHC 31.5 L RDW 15.5 Plt Count 168 MPV 8.2 Prelim Diff (Auto) Manual diff required WBC Differential Manual diff final Seg Neuts % (Manual) 67 Lymphocytes % (Manual) 29 Monocytes % (Manual) 1 Eosinophils % (Manual) 3 Abs Neuts (Manual) 6.2 Differential Comment . Platelet Estimate Normal Platelet Morphology Normal Ovalocytes 1+ H PT INR Sodium Potassium Chloride Carbon Dioxide Anion Gap BUN Creatinine Estimated GFR Random Glucose Hemoglobin A1c 5.0 Calcium Phosphorus Magnesium Total Bilirubin AST ALT Alkaline Phosphatase Ammonia Total Protein Albumin Amylase TSH Free T4 Eosinophil Stool Smear None seen 06/09/18 06/09/18 06/09/18 10:45 10:45 11:50 WBC RBC Hgb Hct MCV MCH MCHC RDW Plt Count MPV Prelim Diff (Auto) WBC Differential Seg Neuts % (Manual) Lymphocytes % (Manual) Monocytes % (Manual) Eosinophils % (Manual) Abs Neuts (Manual) Differential Comment Platelet Estimate Platelet Morphology Ovalocytes PT 10.0 INR 1.0 Sodium 138 Potassium 4.0 Chloride 108 H Carbon Dioxide 23.0 Anion Gap 7 BUN 21 H Creatinine 1.56 H Estimated GFR 37 L Random Glucose 96 Hemoglobin A1c Calcium 8.1 L Phosphorus 3.0 Magnesium 1.9 Total Bilirubin 0.3 AST 22 ALT 18 Alkaline Phosphatase 74 Ammonia 64 H Total Protein 6.5 Albumin 2.4 L D Amylase 46 TSH 3.620 Free T4 1.02 Eosinophil Stool Smear Microbiology 06/09/18 10:11 Stool Stool for WBCs - Final Rare WBC's - Procedures NONE Assessment and Plan - Plan Assessment: 42-year-old female with a history of systemic lupus erythematous in addition to hypokalemia, Crohn's, renal disease, etc. who p/w malaise, swelling (which I do not appreciate on exam), abdominal pain. Plan: //Abdominal pain with constipation, which is c/w today's physical exam. However , she p/w diarrhea, has h/o gastroparesis. She complains of bloating that caused her to come to the ER 3 days ago. Most likely etiology is unclear because SLE flare is unlikely given normal inflammatory markers of CRP and ESR. Exam c/w constipation. Thus, will continue lactulose. Narcotics may be contributing to constipation. Occult stools were reportedly negative for any bleeding. Hgb stable. Abdominal pain is nonspecific She did have a recent exposure to turtles will cover for lupus flareup with steroids: patient received a single dose of IV Solu-Medrol 125 mg 1, will repeat lower dose of Solu-Medrol 40 mg IV today as symptoms were abating on IV steroids, then continue prednisone 30mg po qd continue Protonix for gi ppx CONTINUE IV fluids continue lactulose wean from pain meds to help with constipation; stopped Dilaudid and added extra doses of her home pain med, Morphine IR PRN for breakthrough pain //hyperammonemia with elevated ammonia level - resolved ammonia level normalized today //Chest pain and peripheral edema, which I do not appreciate on exam The edema has been present for more than a week, she states she gained 30 pounds in the last 5 days Consider lupus effect on the heart Consult cardiology if abnormal //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
[2018-06-10 09:04] LABS: Baso # (Auto) 0.1 th/mm3 (0.0-0.2); Baso % (Auto) 0.8 % (0.0-2.0); Eos # (Auto) 0.5 th/mm3 (0.0-0.4); Eos % (Auto) 7.7 % (0.0-4.0); Hematocrit 35.2 % (35.0-46.0); Hemoglobin 11.7 gm/dL (11.6-15.3); Lymph # (Auto) 2.7 th/mm3 (1.0-4.8); Lymph % (Auto) 41.4 % (9.0-44.0); Mean Corpuscular HGB Conc 33.2 % (32.0-36.0); Mean Corpuscular Hemoglobin 29.1 pg (27.0-34.0); Mean Corpuscular Volume 87.7 fL (80.0-100.0); Mean Platelet Volume 7.5 fL (7.0-11.0); Mono # (Auto) 0.4 th/mm3 (0.0-0.9); Mono % (Auto) 6.4 % (0.0-8.0); Neut # (Auto) 2.9 th/mm3 (1.8-7.7); Neut % (Auto) 43.7 % (16.0-70.0); Platelet Count 203 th/mm3 (150-450); Red Blood Count 4.01 mil/mm3 (4.00-5.30); Red Cell Distribution Width 15.2 % (11.6-17.2); White Blood Count 6.5 th/mm3 (4.0-11.0)
[2018-06-10 09:32] LABS: Albumin 3.3 g/dL (3.4-5.0); Anion Gap 9 meq/L (5-15); Aspartate Aminotransferase 12 U/L (15-37); Blood Urea Nitrogen 16 mg/dL (7-18); Calcium 8.9 mg/dL (8.5-10.1); Carbon Dioxide 28.2 meq/L (21.0-32.0); Chloride 104 meq/L (98-107); Glomerular Filtration Rate 38 mL/min (>89); Glucose,Random 83 mg/dL (74-106); Lipase 56 U/L (73-393); Magnesium 1.9 mg/dL (1.5-2.5); Potassium 3.5 meq/L (3.5-5.1); Sodium 141 meq/L (136-145)
[2018-06-10 09:37] LABS: Alanine Aminotransferase 15 U/L (10-53); Alkaline Phosphatase 56 U/L (45-117); Phosphorus 3.8 mg/dL (2.5-4.9); Total Protein 6.5 g/dL (6.4-8.2)
[2018-06-10 17:13] LABS: Hematocrit 36.5 % (35.0-46.0); Hemoglobin 12.1 gm/dL (11.6-15.3); Mean Corpuscular HGB Conc 33.2 % (32.0-36.0); Mean Corpuscular Hemoglobin 29.5 pg (27.0-34.0); Mean Corpuscular Volume 88.9 fL (80.0-100.0); Mean Platelet Volume 8.1 fL (7.0-11.0); Platelet Count 212 th/mm3 (150-450); Red Blood Count 4.11 mil/mm3 (4.00-5.30); White Blood Count 5.6 th/mm3 (4.0-11.0)
[2018-06-10 17:36] LABS: Calcium 8.9 mg/dL (8.5-10.1); Carbon Dioxide 27.9 meq/L (21.0-32.0)
[2018-06-10] MEDS: Temazepam 15 MG Capsule PO PRN (23:24)
[2018-06-11] MEDS: Morphine Sulfate 15 MG IR Tablet PO PRN ×4 (03:31→21:58)
[2018-06-11] MEDS: Levothyroxine 112 MCG Tablet PO SCH (06:36)
[2018-06-11] MEDS: Spironolactone 25 MG Tablet PO SCH (08:43)
[2018-06-11] MEDS: Magnesium Oxide 400 MG Tablet PO SCH (08:43)
[2018-06-11] MEDS: Potassium Phosphate 500 MG Soluble Tablet PO SCH ×3 (08:44→17:42)
[2018-06-11] MEDS: Heparin - SQ 10,000 UNITS/ML Vial SQ SCH ×2 (08:44→20:30)
[2018-06-11] MEDS: predniSONE 10 MG Tablet PO SCH (09:17)
--- NOTE | 2018-06-11 15:01 | P.PN ---
Subjective Interval history: feeling better discuss about her ammonia level awake and alert states she ff up with Dr. Todd- pain management PCP- Dr. Jaramillo Physical Exam Vital signs: Vital Signs 06/10/18 16:00 06/10/18 20:00 06/10/18 23:23 Temperature 100.1 F H 98.8 F 99.2 F Pulse Rate 67 68 74 Respiratory Rate 16 18 18 Blood Pressure 103/64 118/67 123/78 Pulse Oximetry 98 97 95 06/10/18 23:43 06/11/18 03:59 06/11/18 04:00 Temperature 98.9 F Pulse Rate 66 63 74 Respiratory Rate 18 Blood Pressure 123/78 Pulse Oximetry 95 06/11/18 08:00 06/11/18 10:16 06/11/18 12:00 Temperature 98.9 F 98.4 F Pulse Rate 61 78 Respiratory Rate 20 20 Blood Pressure 115/64 118/68 Pulse Oximetry 96 96 98 06/11/18 12:48 Temperature Pulse Rate 69 Respiratory Rate Blood Pressure Pulse Oximetry Intake & Output 06/10/18 06/11/18 06/11/18 18:59 06:59 18:59 Intake Total 380 / 380 Output Total 2000 / 1999 1200 / 1200 Balance -1620 / -1620 -1200 / -1200 Weight 77.1 kg Intake: Oral 380 / 380 Output: Urine 1999 / 1999 1200 / 1200 Other: Post Void Residual 2 Date of Last Bowel Movement 06/09/18 # Bowel Movements 0 Narrative: GENERAL: AAOx3, middle aged woman lying in bed in no acute distress SKIN: Warm and dry, no rashes. HEAD: Atraumatic. Normocephalic. EYES: No scleral icterus. No injection or drainage. ENT: No nasal bleeding Moist mucous membranes. NECK: Trachea midline. No JVD. No obvious thyromegaly. CARDIOVASCULAR: Regular rate and rhythm. No murmur, no gallops, no rubs.S1, S2 NO S3 OR S4 RESPIRATORY: Clear and equal to auscultation bilaterally. No crackles, no wheezes. No accessory muscle use. GASTROINTESTINAL: Abdomen soft, nontender good bowel sounds MUSCULOSKELETAL: Extremities without clubbing or cyanosis. No obvious deformities. No edema. NEUROLOGICAL: Awake and alert. No obvious cranial nerve deficits. Motor and sensation grossly within normal limits. No focal deficits. Normal speech. Results - Labs CBC & Chem 7: 06/10/18 16:10 06/12/18 06:58 Laboratory Results - last 24 hr 06/10/18 06/10/18 06/11/18 16:10 16:20 06:03 WBC 5.6 RBC 4.11 Hgb 12.1 Hct 36.5 MCV 88.9 MCH 29.5 MCHC 33.2 RDW 15.0 Plt Count 212 MPV 8.1 Sodium 142 Potassium 4.0 Chloride 105 Carbon Dioxide 27.9 Anion Gap 9 BUN 20 H Creatinine 1.87 H Estimated GFR 30 L Random Glucose 124 H Calcium 8.9 Ammonia 27 - Procedures NONE Assessment and Plan - Plan 42 years old //Abdominal pain with constipation, has h/o gastroparesis. - clinically at bedside- no complains today - asked about her ammonia level- good for past 2 days She complains of bloating that caused her to come to the ER 3 days ago. Most likely etiology is unclear because SLE flare is unlikely given normal inflammatory markers of CRP and ESR. Exam c/w constipation. Thus, will continue lactulose. Narcotics may be contributing to constipation. Occult stools were reportedly negative for any bleeding. Hgb stable. Abdominal pain is nonspecific She did have a recent exposure to turtles will cover for lupus flareup with steroids: patient received a single dose of IV Solu-Medrol 125 mg 1, will repeat lower dose of Solu-Medrol 40 mg IV today as symptoms were abating on IV steroids, then continue prednisone 30mg po qd continue Protonix for gi ppx continue lactulose wean from pain meds to help with constipation; stopped Dilaudid and added extra doses of her home pain med, Morphine IR PRN for breakthrough pain //hyperammonemia with elevated ammonia level - resolved ammonia level normalized today //Chest pain- no complains peripheral edema- none on exam The edema has been present for more than a week, she states she gained 30 pounds in the last 5 days - continue on her Prednisone //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 Todd
[2018-06-11] MEDS ORDERED: Sod Chloride 0.9% Inj 1,000 ML IV.CONT SCH (15:15)
[2018-06-11] MEDS: Temazepam 15 MG Capsule PO PRN (21:58)
[2018-06-12] MEDS: Morphine Sulfate 15 MG IR Tablet PO PRN ×2 (04:26→10:36)
[2018-06-12] MEDS: Levothyroxine 112 MCG Tablet PO SCH (05:26)
[2018-06-12 08:08] LABS: Calcium 8.4 mg/dL (8.5-10.1); Carbon Dioxide 26.5 meq/L (21.0-32.0); Potassium 3.3 meq/L (3.5-5.1)
[2018-06-12] MEDS: Heparin - SQ 10,000 UNITS/ML Vial SQ SCH (08:52)
[2018-06-12] MEDS: Potassium Phosphate 500 MG Soluble Tablet PO SCH (08:52)
[2018-06-12] MEDS: Spironolactone 25 MG Tablet PO SCH (08:52)
[2018-06-12] MEDS: Magnesium Oxide 400 MG Tablet PO SCH (08:53)
[2018-06-12] MEDS: predniSONE 10 MG Tablet PO SCH (08:58)
--- NOTE | 2018-06-12 10:26 | P.PN ---
Subjective Interval history: had a good night up having breakfast denies any nause aor vomiting Physical Exam Vital signs: Vital Signs 06/11/18 12:00 06/11/18 12:48 06/11/18 16:00 Temperature 98.4 F 99.0 F Pulse Rate 78 69 69 Respiratory Rate 20 20 Blood Pressure 118/68 107/62 Pulse Oximetry 98 95 06/11/18 18:00 06/11/18 20:00 06/12/18 00:00 Temperature 98.2 F 98.2 F Pulse Rate 60 74 72 Respiratory Rate 16 18 Blood Pressure 110/69 111/57 L Pulse Oximetry 96 98 06/12/18 04:00 06/12/18 08:00 Temperature 97.8 F 98.4 F Pulse Rate 70 64 Respiratory Rate 18 20 Blood Pressure 105/56 L 104/66 Pulse Oximetry 96 99 Intake & Output 06/11/18 06/12/18 06/12/18 18:59 06:59 18:59 Intake Total 600 / 600 480 / 480 Output Total 1800 / 1800 2600 / 2600 Balance -1200 / -1200 -2120 / -2120 Weight 78.3 kg Intake: Oral 600 / 600 480 / 480 Output: Urine 1800 / 1800 2600 / 2600 Other: Date of Last Bowel Movement 06/09/18 # Bowel Movements 0 1 Narrative: GENERAL: AAOx3, no acute distress SKIN: Warm and dry, no rashes. HEAD: Atraumatic. Normocephalic. EYES: No scleral icterus. No injection or drainage. ENT: No nasal bleeding Moist mucous membranes. NECK: Trachea midline. No JVD. No obvious thyromegaly. CARDIOVASCULAR: Regular rate and rhythm. No murmur, no gallops, no rubs.S1, S2 NO S3 OR S4 RESPIRATORY: Clear and equal to auscultation bilaterally. No crackles, no wheezes. No accessory muscle use. GASTROINTESTINAL: Abdomen soft, nontender good bowel sounds MUSCULOSKELETAL: Extremities without clubbing or cyanosis. No obvious deformities. No edema. good peripheral pulses NEUROLOGICAL: Awake and alert. No obvious cranial nerve deficits. Motor and sensation grossly within normal limits. No focal deficits. Normal speech. Results - Labs CBC & Chem 7: 06/10/18 16:10 06/12/18 06:58 Laboratory Results - last 24 hr 06/12/18 06:58 Sodium 145 Potassium 3.3 L Chloride 109 H Carbon Dioxide 26.5 Anion Gap 10 BUN 22 H Creatinine 1.54 H Estimated GFR 37 L Random Glucose 84 Calcium 8.4 L - Procedures NONE Assessment and Plan - Plan 42 years old //Abdominal pain with constipation, has h/o gastroparesis. - IMproved, taking pow ell - clinically at bedside- no complains today - asked about her ammonia level- clinically she is not encephalopathic She complains of bloating that caused her to come to the ER 3 days ago. Most likely etiology is unclear because SLE flare is unlikely given normal inflammatory markers of CRP and ESR. Exam c/w constipation. Thus, will continue lactulose. Narcotics may be contributing to constipation. Occult stools were reportedly negative for any bleeding. Hgb stable. Abdominal pain - improved She did have a recent exposure to turtles will cover for lupus flareup with steroids: patient received a single dose of IV Solu-Medrol 125 mg 1, will repeat lower dose of Solu-Medrol 40 mg IV today as symptoms were abating on IV steroids, then continue prednisone 30mg po qd continue Protonix wean from pain meds to help with constipation; stopped Dilaudid and added extra doses of her home pain med, Morphine IR PRN for breakthrough pain d/w her- she asked for pain meds- told her to ff up with her pain management Md - Dr. 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 Todd she will call to make appt continue home meds- d/w her - I will not write for any pain meds
--- NOTE | 2018-06-12 10:37 | P.DS ---
Date of admission: 06/07/18 15:32 Primary care physician: Nadeem Felix Attending physician on discharge: Nahomy Adam Anticipated date of discharge: 06/12/18 Brief History from admission: 42-year-old female with a history of systemic lupus erythematous in addition to hypokalemia, Crohn's, renal disease, etc. She presents to the ER today complaining of malaise, ankle edema, diarrhea. She states that she has been on and off feeling terribly for the last 3 days and in fact was here 3 days ago with abdominal bloating. Today she experienced a combination of abdominal pain , chest pain and onset of diarrhea a few hours prior to admission. 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 Hemoccult workup in the ER was negative. She was diagnosed with lupus little over a year ago and has a fairly serious case that involves multiple organ systems including GI, nerve, cardiac symptoms. She mentions that she assisted with a total release yesterday and is wondering if the turtles may have given her her current diarrhea. DS: Summary Hospital Course: 42 years old //Abdominal pain with constipation, has h/o gastroparesis. - IMproved, taking pow ell - clinically at bedside- no complains today - asked about her ammonia level- clinically she is not encephalopathic She complains of bloating that caused her to come to the ER 3 days ago. Most likely etiology is unclear because SLE flare is unlikely given normal inflammatory markers of CRP and ESR. Exam c/w constipation. Thus, will continue lactulose. Narcotics may be contributing to constipation. Occult stools were reportedly negative for any bleeding. Hgb stable. Abdominal pain - improved She did have a recent exposure to turtles will cover for lupus flareup with steroids: patient received a single dose of IV Solu-Medrol 125 mg 1, will repeat lower dose of Solu-Medrol 40 mg IV today as symptoms were abating on IV steroids, then continue prednisone 30mg po qd continue Protonix wean from pain meds to help with constipation; stopped Dilaudid and added extra doses of her home pain med, Morphine IR PRN for breakthrough pain d/w her- she asked for pain meds- told her to ff up with her pain management Md - Dr. 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 Todd she will call to make appt continue home meds- d/w her - I will not write for any pain meds - Time Spent with Patient Total time spent providing and/or coordinating discharge services: Less than 30 minutes - Quality: VTE Deep Vein Thrombosis/Pulmonary Embolism Present on Admission: No Exam Vital signs: Vital Signs 06/11/18 12:00 06/11/18 12:48 06/11/18 16:00 Temperature 98.4 F 99.0 F Pulse Rate 78 69 69 Respiratory Rate 20 20 Blood Pressure 118/68 107/62 Pulse Oximetry 98 95 06/11/18 18:00 06/11/18 20:00 06/12/18 00:00 Temperature 98.2 F 98.2 F Pulse Rate 60 74 72 Respiratory Rate 16 18 Blood Pressure 110/69 111/57 L Pulse Oximetry 96 98 06/12/18 04:00 06/12/18 08:00 Temperature 97.8 F 98.4 F Pulse Rate 70 64 Respiratory Rate 18 20 Blood Pressure 105/56 L 104/66 Pulse Oximetry 96 99 Intake & Output 06/11/18 06/12/18 06/12/18 18:59 06:59 18:59 Intake Total 600 / 600 480 / 480 Output Total 1800 / 1800 2600 / 2600 Balance -1200 / -1200 -2120 / -2120 Weight 78.3 kg Intake: Oral 600 / 600 480 / 480 Output: Urine 1800 / 1800 2600 / 2600 Other: Date of Last Bowel Movement 06/09/18 # Bowel Movements 0 1 Narrative: GENERAL: AAOx3, no acute distress SKIN: Warm and dry, no rashes. HEAD: Atraumatic. Normocephalic. EYES: No scleral icterus. No injection or drainage. ENT: No nasal bleeding Moist mucous membranes. NECK: Trachea midline. No JVD. No obvious thyromegaly. CARDIOVASCULAR: Regular rate and rhythm. No murmur, no gallops, no rubs.S1, S2 NO S3 OR S4 RESPIRATORY: Clear and equal to auscultation bilaterally. No crackles, no wheezes. No accessory muscle use. GASTROINTESTINAL: Abdomen soft, nontender good bowel sounds MUSCULOSKELETAL: Extremities without clubbing or cyanosis. No obvious deformities. No edema. good peripheral pulses NEUROLOGICAL: Awake and alert. No obvious cranial nerve deficits. Motor and sensation grossly within normal limits. No focal deficits. Normal speech. Results Procedures completed during hospitalization: NONE Labs on day of discharge: Labs from last 24 hours 06/12/18 06:58 Sodium 145 Potassium 3.3 L Chloride 109 H Carbon Dioxide 26.5 Anion Gap 10 BUN 22 H Creatinine 1.54 H Estimated GFR 37 L Random Glucose 84 Calcium 8.4 L - Impressions ITS Impressions Chest X-Ray 06/07/18 10:15 CONCLUSION: No acute intrathoracic disease. Stable examination. Discharge Plan - Discharge Disposition Patient Disposition: Discharge Home - Discharge Condition Condition: Stable - Discharge Order Discharge Orders: Discharge Order (Routine); Ordered 06/12/18 Ordered By: Nahomy Adam - Discharge Details Anticipated Discharge Date: 06/12/18 - Physicians Team Attending Provider: Nahomy Adam
[2018-06-12 12:18] LABS: Chloride, Feces ND mmol/L (()); Osmolality, Feces ND mOsm/kg (()); Potassium, Feces ND mmol/L (()); Sodium, Feces ND mmol/L (())
[2018-06-12 17:53] VITALS: PULSE 59
[2018-06-12 18:01] VITALS: BP 104/66; O2SAT 99
[2018-06-12 18:20] VITALS: RESP 20; TEMP 98.4
== END 2018-06-12 12:11 | disposition home or self-care (01) ==
LOC: N04 09:54 → NEDA 09:54 → NEPC 09:54 → HCIS 21:21 → N04 06-09 16:55
PROVIDERS: ADMIT Internal Medicine; ATTEND Internal Medicine

== ENCOUNTER 2018-07-13 13:32 | Observation (INO) ==
[2018-07-13] MEDS ORDERED: Morphine Inj 4 MG/ML Vial IV.PUSH ONE (18:56)
--- NOTE | 2018-07-13 19:05 | ED ---
HPI General Chief complaint: Chest Pain Stated complaint: Chest Pain Time Seen by Provider: 07/13/18 18:01 Source: patient Mode of arrival: ambulatory Limitations: no limitations History of Present Illness HPI narrative: Patient is a 42-year-old female presenting to emerge from for evaluation of chest pain, body aches and muscle spasms. Patient states it started 3 days ago in her left upper chest wall around the site where her defibrillator was placed. Patient had a defibrillator placed on June 27, 2018. This is her third defibrillator. She has a history of Brugada syndrome. Patient initially experienced pain at that site and then noticed some swelling and redness. She was seen by her primary doctor and was told that it looked better. Patient reports generalized muscle spasming and aching. She reports chills but no fevers. She states she does not run fevers because she has lupus. Patient denies any nausea, vomiting, abdominal pain, back pain, dysuria. MD complaint: CHEST PAIN, BODY ACHES Radiation: non-radiation Severity: moderate Severity scale (1-10): 8 Quality: aching Pain Consistency: constant Relieving factors: none Associated symptoms: fever/chills and malaise Treatments prior to arrival: none Related Data Home Medications Medication Instructions Recorded Confirmed levothyroxine [Synthroid] 112 mcg PO DAILY 05/08/18 07/13/18 magnesium 100 mg PO QID 05/08/18 07/13/18 pantoprazole [Protonix] 40 mg PO DAILY 05/08/18 07/13/18 potassium chloride 40 meq PO TID 05/08/18 07/13/18 potassium phosphate, monobasic 1,000 mg PO TID 05/08/18 07/13/18 [K-Phos Original] prednisone 30 mg PO DAILY 05/08/18 07/13/18 spironolactone 25 mg PO DAILY 05/08/18 07/13/18 amlodipine 5 mg PO DAILY 06/27/18 07/13/18 Previous Rx's Medication Instructions Recorded diazepam [Valium] 10 mg PO Q8HR PRN tab 05/09/18 morphine 15 mg PO Q8HR PRN tab 05/09/18 Allergies Allergy/AdvReac Type Severity Reaction Status Date / Time cephalexin Allergy Severe RASH,SWELLI Verified 07/13/18 17:57 NG Fish Containing Products Allergy Severe SWELLING Verified 07/13/18 17:57 IN THROAT, SOB ketorolac Allergy Severe RASH Verified 07/13/18 17:57 penicillin G Allergy Severe RASH,SWELLI Verified 07/13/18 17:57 NG prochlorperazine Allergy Mild DYSTONIC Verified 07/13/18 17:57 REACTION promethazine Allergy Mild DYSTONIC Verified 07/13/18 17:57 REACTION Review of Systems ROS: all other systems reviewed are negative [facility] Medical History Medical History Brugada syndrome (Acute) Crohn's disease (Acute) Endometriosis (Acute) Esophagitis (Acute) Gastroparesis (Acute) Hypokalemia (Acute) Hypothyroidism (Acute) Interstitial cystitis (Acute) Lupus (Acute) Renal disease (Acute) Surgical History Surgical History History of appendectomy (Acute) History of partial hysterectomy (Acute) Social History Social History Substance History: No History of Abuse Second Hand Smoke Exposure: No Smoking Status: Never smoker How Often Do You Have a Drink Containing Alcohol: Never Recent Travel in [facility] within the Last 8 Weeks: No Recent Out of Country Travel within the Last 8 Weeks: No Immunization History Tetanus Immunization: <5 Years Hx Influenza Vaccine This Season: No Exam Narrative Exam Narrative: GENERAL: Well-developed, well-nourished, alert female. Appears uncomfortable, no acute distress. SKIN: Focused skin assessment warm/dry. 5 cm healing incision to left upper chest wall, no erythema or induration noted. No exudate noted. HEAD: Atraumatic. Normocephalic. EYES: Pupils equal and round. No scleral icterus. No injection or drainage. ENT: No nasal bleeding or discharge. Mucous membranes pink and moist. NECK: Trachea midline. No JVD. CARDIOVASCULAR: Regular rate and rhythm. No murmur appreciated. RESPIRATORY: No accessory muscle use. Clear to auscultation. Breath sounds equal bilaterally. GASTROINTESTINAL: Abdomen soft, non-tender, nondistended. Hepatic and splenic margins not palpable. MUSCULOSKELETAL: No obvious deformities. No clubbing. No cyanosis. No edema. NEUROLOGICAL: Awake and alert. No obvious cranial nerve deficits. Motor grossly within normal limits. Normal speech. PSYCHIATRIC: Appropriate mood and affect; insight and judgment normal. Course Initial Documented Vital Signs Temperature 98.7 F 07/13/18 13:39 Pulse Rate 95 H 07/13/18 13:39 Respiratory Rate 18 07/13/18 13:39 Blood Pressure 135/68 07/13/18 13:39 Pulse Oximetry 100 07/13/18 13:39 Last Documented Vital Signs Temperature 98.7 F 07/13/18 13:39 Pulse Rate 84 07/13/18 17:56 Respiratory Rate 14 07/13/18 17:56 Blood Pressure 141/78 H 07/13/18 17:56 Pulse Oximetry 98 07/13/18 20:14 Medical Decision Making MDM Narrative Medical decision making narrative: Patient is a 42-year-old female presenting for evaluation of chest pain and body aches. Patient's vital signs are stable, labs and imaging ordered and pending. Labs reviewed, cardiac enzymes are negative 1 set. BUN and creatinine elevated at 29/2.18. Patient was given IV fluids. Patient was reassessed and is resting comfortably. Due to patient's history of Brugada as well as defibrillator placement. She will be placed in the chest pain center for further evaluation. Patient is agreeable. Plan of care was discussed with my attending physician prior to admission. Medical Screen Exam Complete: Yes Emergency Medical Condition: Yes Differential Diagnosis Differential Diagnosis: ACS versus [place] versus viral syndrome versus influenza versus metabolic abnormality versus other Medical Records Medical records reviewed: Yes I reviewed the patient's medical records. Lab Data Lab results reviewed: Yes I reviewed the patient's lab results. Result diagrams: 07/13/18 19:10 07/13/18 19:10 Lab Results 07/13/18 07/13/18 07/13/18 Range/Units 19:10 19:10 19:10 WBC 7.4 (4.0-11.0) th/mm3 RBC 4.31 (4.00-5.30) mil/mm3 Hgb 12.5 (11.6-15.3) gm/dL Hct 38.1 (35.0-46.0) % MCV 88.5 (80.0-100.0) fL MCH 29.0 (27.0-34.0) pg MCHC 32.7 (32.0-36.0) % RDW 14.4 (11.6-17.2) % Plt Count 177 D (150-450) th/mm3 MPV 7.6 (7.0-11.0) fL Neut % (Auto) 61.4 (16.0-70.0) % Lymph % (Auto) 28.1 (9.0-44.0) % [place] % (Auto) 8.0 (0.0-8.0) % Eos % (Auto) 1.5 (0.0-4.0) % Baso % (Auto) 1.0 (0.0-2.0) % Neut # (Auto) 4.6 (1.8-7.7) th/mm3 Lymph # (Auto) 2.1 (1.0-4.8) th/mm3 [place] # (Auto) 0.6 (0.0-0.9) th/mm3 Eos # (Auto) 0.1 (0.0-0.4) th/mm3 Baso # (Auto) 0.1 (0.0-0.2) th/mm3 WBC Differential . Differential Comment Auto diff final PT (9.8-11.6) sec INR Ratio APTT (24.3-30.1) sec Sodium 138 (136-145) meq/L Potassium 3.5 (3.5-5.1) meq/L Chloride 103 (98-107) meq/L Carbon Dioxide 24.5 (21.0-32.0) meq/L Anion Gap 11 (5-15) meq/L BUN 29 H (7-18) mg/dL Creatinine 2.18 H (0.50-1.00) mg/dL Estimated GFR 25 L (>89) mL/min Random Glucose 90 (74-106) mg/dL Lactic Acid 0.6 (0.4-2.0) mmol/L Calcium 9.3 (8.5-10.1) mg/dL Magnesium 1.9 (1.5-2.5) mg/dL Total Bilirubin 0.4 (0.2-1.0) mg/dL AST 27 (15-37) U/L ALT 15 (10-53) U/L Alkaline Phosphatase 60 (45-117) U/L Total Creatine Kinase 154 (26-192) U/L CK-MB (CK-2) 3.0 (0.5-3.6) ng/mL Troponin I Less than 0.02 L (0.02-0.05) ng/mL B-Natriuretic Peptide (0-100) pg/mL Total Protein 7.9 (6.4-8.2) g/dL Albumin 4.3 (3.4-5.0) g/dL Urine Color (Yellw/Straw) Urine Clarity (Clear) Urine pH (5.0-8.5) Ur Specific [place] (1.002-1.035) Urine Protein (Neg-Trace) mg/dL Urine Glucose (UA) (Negative) mg/dL Urine Ketones (Negative) mg/dL Urine Occult Blood (Negative) Urine Nitrate (Negative) Urine Bilirubin (Negative) Urine Urobilinogen (Less than 2) mg/dL Ur Leukocyte Esterase (Negative) Urine RBC (0-3) /hpf Urine WBC (0-5) /hpf Ur Squamous Epith Cells (0-5) /hpf Urine Bacteria (None) /hpf Hyaline Casts (0-3) /lpf Urine Mucus (Occasional) /lpf Micro UA Comment Ur Microscopic Review Urine Culture Comments 07/13/18 07/13/18 07/13/18 Range/Units 19:10 19:10 20:10 WBC (4.0-11.0) th/mm3 RBC (4.00-5.30) mil/mm3 Hgb (11.6-15.3) gm/dL Hct (35.0-46.0) % MCV (80.0-100.0) fL MCH (27.0-34.0) pg MCHC (32.0-36.0) % RDW (11.6-17.2) % Plt Count (150-450) th/mm3 MPV (7.0-11.0) fL Neut % (Auto) (16.0-70.0) % Lymph % (Auto) (9.0-44.0) % [place] % (Auto) (0.0-8.0) % Eos % (Auto) (0.0-4.0) % Baso % (Auto) (0.0-2.0) % Neut # (Auto) (1.8-7.7) th/mm3 Lymph # (Auto) (1.0-4.8) th/mm3 [place] # (Auto) (0.0-0.9) th/mm3 Eos # (Auto) (0.0-0.4) th/mm3 Baso # (Auto) (0.0-0.2) th/mm3 WBC Differential Differential Comment PT 10.7 (9.8-11.6) sec INR 1.1 Ratio APTT 25.9 (24.3-30.1) sec Sodium (136-145) meq/L Potassium (3.5-5.1) meq/L Chloride (98-107) meq/L Carbon Dioxide (21.0-32.0) meq/L Anion Gap (5-15) meq/L BUN (7-18) mg/dL Creatinine (0.50-1.00) mg/dL Estimated GFR (>89) mL/min Random Glucose (74-106) mg/dL Lactic Acid (0.4-2.0) mmol/L Calcium (8.5-10.1) mg/dL Magnesium (1.5-2.5) mg/dL Total Bilirubin (0.2-1.0) mg/dL AST (15-37) U/L ALT (10-53) U/L Alkaline Phosphatase (45-117) U/L Total Creatine Kinase (26-192) U/L CK-MB (CK-2) (0.5-3.6) ng/mL Troponin I (0.02-0.05) ng/mL B-Natriuretic Peptide 49 (0-100) pg/mL Total Protein (6.4-8.2) g/dL Albumin (3.4-5.0) g/dL Urine Color Yellow (Yellw/Straw) Urine Clarity Hazy H (Clear) Urine pH 5.0 (5.0-8.5) Ur Specific [place] 1.013 (1.002-1.035) Urine Protein Negative (Neg-Trace) mg/dL Urine Glucose (UA) Negative (Negative) mg/dL Urine Ketones Negative (Negative) mg/dL Urine Occult Blood Small H (Negative) Urine Nitrate Negative (Negative) Urine Bilirubin Negative (Negative) Urine Urobilinogen Less than 2 (Less than 2) mg/dL Ur Leukocyte Esterase Negative (Negative) Urine RBC 1 (0-3) /hpf Urine WBC 5 (0-5) /hpf Ur Squamous Epith Cells 6 (0-5) /hpf Urine Bacteria Occasional H (None) /hpf Hyaline Casts 4 (0-3) /lpf Urine Mucus Few H (Occasional) /lpf Micro UA Comment Culture not ind Ur Microscopic Review Not Reportable Urine Culture Comments Culture not ind Imaging Data Radiologist's impression: Chest X-Ray 07/13/18 18:58 CONCLUSION: 1. No acute cardiopulmonary disease. Discharge Plan Discharge Disposition Patient Disposition: 30 Still Patient Discharge Condition Condition: Stable Discharge Details Diagnosis: Atypical chest pain, Renal insufficiency Physicians Team ED Provider: [facility] ED Midlevel Provider: Reba Low Primary Care Provider: UNKNOWN, Attending Provider: Bita Bal Discharge Interventions Interventions: Vital Signs Last Done: 07/13/18 17:56 Status ED Status: Admitted Observation Patient
[2018-07-13 19:20] LABS: Baso # (Auto) 0.1 th/mm3 (0.0-0.2); Eos # (Auto) 0.1 th/mm3 (0.0-0.4); Eos % (Auto) 1.5 % (0.0-4.0); Hematocrit 38.1 % (35.0-46.0); Hemoglobin 12.5 gm/dL (11.6-15.3); Lymph # (Auto) 2.1 th/mm3 (1.0-4.8); Lymph % (Auto) 28.1 % (9.0-44.0); Mean Corpuscular HGB Conc 32.7 % (32.0-36.0); Mean Corpuscular Volume 88.5 fL (80.0-100.0); Mean Platelet Volume 7.6 fL (7.0-11.0); Mono # (Auto) 0.6 th/mm3 (0.0-0.9); Neut # (Auto) 4.6 th/mm3 (1.8-7.7); Neut % (Auto) 61.4 % (16.0-70.0); Platelet Count 177 th/mm3 (150-450); Red Blood Count 4.31 mil/mm3 (4.00-5.30); Red Cell Distribution Width 14.4 % (11.6-17.2); White Blood Count 7.4 th/mm3 (4.0-11.0)
[2018-07-13 19:33] LABS: Activated Partial Thrombo Time 25.9 sec (24.3-30.1); INR 1.1 Ratio; Prothrombin Time 10.7 sec (9.8-11.6)
--- NOTE | 2018-07-13 19:38 | XR ---
EXAM DATE: 07/13/2018 7:34 PM EDT AGE/SEX: 42 years / Female INDICATIONS: . Chest pain. CLINICAL DATA: This is the patient's initial encounter. Patient reports that signs and symptoms have been present for 3 days and indicates a pain score of 5/10. MEDICAL/SURGICAL HISTORY: Hypertension. Defibrillator. COMPARISON: C, CHEST 1V SINGLE AP, 06/27/2018. . FINDINGS: A left subclavian single lead pacemaker has its tip in the right ventricle. There is no pneumothorax. The heart is normal. The pulmonary vascular pattern is normal. The lungs are clear. CONCLUSION: 1. No acute cardiopulmonary disease. Electronically signed by: Javid Johnson MD 07/13/2018 7:36 PM EDT
[2018-07-13 19:43] LABS: Alanine Aminotransferase 15 U/L (10-53); Albumin 4.3 g/dL (3.4-5.0); Anion Gap 11 meq/L (5-15); Aspartate Aminotransferase 27 U/L (15-37); Blood Urea Nitrogen 29 mg/dL (7-18); Calcium 9.3 mg/dL (8.5-10.1); Carbon Dioxide 24.5 meq/L (21.0-32.0); Chloride 103 meq/L (98-107); Glomerular Filtration Rate 25 mL/min (>89); Glucose,Random 90 mg/dL (74-106); Magnesium 1.9 mg/dL (1.5-2.5); Potassium 3.5 meq/L (3.5-5.1); Sodium 138 meq/L (136-145)
[2018-07-13] MEDS: Sod Chloride 0.9% Inj 1,000 ML IV.SIG SCH (19:44)
[2018-07-13 19:49] LABS: Alkaline Phosphatase 60 U/L (45-117); Creatine Kinase 154 U/L (26-192); Total Protein 7.9 g/dL (6.4-8.2)
[2018-07-13] MEDS ORDERED: Sod Chloride 0.9% Inj 1,000 ML IV.SIG SCH (20:00)
[2018-07-13 20:48] LABS: Bacteria,Urine Occasional /hpf; Bilirubin,Urine Negative (Negative); Clarity,Urine Hazy (Clear); Color,Urine Yellow (Yellw/Straw); Glucose,Urine (UA) Negative (Negative); Hyaline Casts,Urine 4 /lpf (0-3); Leukocyte Esterase,Urine Negative (Negative); Mucus,Urine Few /lpf (Occasional); Nitrite,Urine Negative (Negative); Specific Gravity,Urine 1.013 (1.002-1.035); Squamous Epithelial Cell,Urine 6 /hpf (0-5)
[2018-07-13] MEDS ORDERED: Acetaminophen 500 MG Tablet PO PRN (22:06)
[2018-07-13] MEDS ORDERED: Morphine Sulfate 15 MG IR Tablet PO ONE (22:06)
[2018-07-13 23:55] LABS: Creatine Kinase 89 U/L (26-192)
[2018-07-14] MEDS: Sod Chloride 0.9% Inj 1,000 ML IV.CONT SCH ×3 (00:15→12:58)
[2018-07-14 02:45] LABS: Creatine Kinase 87 U/L (26-192)
--- NOTE | 2018-07-14 11:09 | P.HPCA ---
History of Present Illness Primary Care Physician: Dr. Self Chief Complaint: Chest pain History of Present Illness: 42-year-old female with history of Brugada syndrome, lupus, Crohn's, hypothyroidism, recurrent hypokalemia, and chronic kidney disease presents emergency room for further evaluation generalized chest and whole pain aches. Onset 3-4 days ago. Location substernal. Characterized as tightness and heaviness. Duration constant. Moderate to severe in severity. Associated symptoms occasionally include nausea, dyspnea, diaphoresis. Denies vomiting. No recent illness, fever, or cough. Reports 3rd AICD placed by Dr. Cervantes on 06/27. States defibrillators "keep getting infected." Also reports "all over body aches." Discomfort made worse with any type of movement. No known coronary artery disease, diabetes, or hyperlipidemia. Recently diagnosed with hypertension, started on amlodipine. Family history noncontributory for early onset cardiovascular disease. Past cardiac testing Remote exercise stress test years ago reported to be normal. Social history Lifelong non-smoker. Denies any alcohol or recreational drug use. Endorses sedentary lifestyle diagnosis with lupus approximately 1 and half years ago. Single, 10-year-old son. Currently unemployed. - Diagnosis (1) Musculoskeletal chest pain (2) Chronic renal failure, stage 3 (moderate) (3) Hypothyroidism (4) Lupus (5) Hypertension Review of Systems All other systems reviewed negative except as stated in HPI PMFSH - History History 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 - Medical History Medical History: Medical History (Last Updated 07/14/18 @ 11:26 by MAYELA Miranda) Anxiety PTSD (post-traumatic stress disorder) Brugada syndrome Crohn's disease Endometriosis Esophagitis Gastroparesis Hypokalemia Hypothyroidism Interstitial cystitis Lupus Renal disease - Surgical History Surgical History: Surgical History (Last Updated 07/14/18 @ 11:03 by MAYELA Miranda) AICD (automatic cardioverter/defibrillator) present History of appendectomy History of partial hysterectomy - Family History Family History: Family History (Last Updated 07/14/18 @ 11:04 by MAYELA Miranda) Mother Prinzmetal angina - Social History I have reviewed the patient's Social History: Yes - Tobacco History Second Hand Smoke Exposure: No Smoking Status: Never smoker - Alcohol History How Often Do You Have a Drink Containing Alcohol: Never - Substance Use History Substance History: No History of Abuse - Travel History History of Recent Travel: No Recent Travel in the [place] Within the Last 8 Weeks: No Recent Travel Out of the Country Within the Last 8 Weeks: No - Immunization History Tetanus Immunization: <5 Years Hx Influenza Vaccine This Season: No Medications and Allergies Active Medications: Active Medications Acetaminophen (Tylenol) 500 mg PO Q4H PRN PRN Reason: HEADACHE Sodium Chloride (Ns Inj) 1,000 mls @ 0 mls/hr IV.SIG BOLUS SHUKRI Last Infusion: 07/13/18 21:04 Dose: Infused Sodium Chloride (Ns Inj) 1,000 mls @ 0 mls/hr IV.SIG BOLUS SHUKRI Last Infusion: 07/13/18 22:28 Dose: Infused Sodium Chloride (Ns Inj) 1,000 mls @ 100 mls/hr IV.CONT .Q10H SHUKRI Last Admin: 07/14/18 05:24 Dose: Not Given Ondansetron HCl (Zofran Inj) 4 mg IV.PUSH Q6H PRN PRN Reason: NAUSEA Sodium Chloride (Ns Flush) 2 ml IV.FLUSH UNSCH PRN PRN Reason: FLUSH AFTER USING IV ACCESS Sodium Chloride (Ns Flush) 2 ml IV.FLUSH BID SHUKRI Sodium Chloride (Ns Flush) 2 ml IV.FLUSH PRN PRN PRN Reason: FLUSH AFTER USING IV ACCESS Allergies Allergy/AdvReac Type Severity Reaction Status Date / Time cephalexin Allergy Severe RASH,SWELLI Verified 07/13/18 17:57 NG Fish Containing Products Allergy Severe SWELLING Verified 07/13/18 17:57 IN THROAT, SOB ketorolac Allergy Severe RASH Verified 07/13/18 17:57 penicillin G Allergy Severe RASH,SWELLI Verified 07/13/18 17:57 NG prochlorperazine Allergy Mild DYSTONIC Verified 07/13/18 17:57 REACTION promethazine Allergy Mild DYSTONIC Verified 07/13/18 17:57 REACTION Home Medications Medication Instructions Recorded Confirmed Type levothyroxine [Synthroid] 112 mcg PO DAILY 05/08/18 07/13/18 History magnesium 100 mg PO QID 05/08/18 07/13/18 History pantoprazole [Protonix] 40 mg PO DAILY 05/08/18 07/13/18 History potassium chloride 40 meq PO TID 05/08/18 07/13/18 History potassium phosphate, monobasic 1,000 mg PO TID 05/08/18 07/13/18 History [K-Phos Original] prednisone 30 mg PO DAILY 05/08/18 07/13/18 History spironolactone 25 mg PO DAILY 05/08/18 07/13/18 History amlodipine 5 mg PO DAILY 06/27/18 07/13/18 History Exam Vital signs: Vital Signs 07/13/18 13:39 07/13/18 17:56 07/13/18 20:09 Temperature 98.7 F Pulse Rate 95 H 84 Respiratory Rate 18 14 Blood Pressure 135/68 141/78 H Pulse Oximetry 100 99 98 07/13/18 20:14 07/13/18 23:16 07/14/18 00:00 Temperature Pulse Rate 66 Respiratory Rate 16 Blood Pressure 108/62 Pulse Oximetry 98 96 98 07/14/18 00:15 07/14/18 01:15 07/14/18 03:53 Temperature 97.7 F 96.7 F L Pulse Rate 70 87 66 Respiratory Rate 18 18 Blood Pressure 99/58 L 113/69 Pulse Oximetry 98 97 07/14/18 07:50 07/14/18 08:00 Temperature 97.8 F Pulse Rate 72 Respiratory Rate 16 Blood Pressure 101/58 L Pulse Oximetry 100 98 Intake & Output 07/13/18 07/14/18 07/14/18 18:59 06:59 18:59 Intake Total 1999 Balance 1999 Weight 78.925 kg Intake: IV 1999 NS Inj 1,000 ML @ Wide Open IV. 1999 SIG BOLUS SHUKRI Rx#:[id number] Narrative: GENERAL: Alert WN, WD, NAD, female HEAD: NC, AT CV: RRR, without murmur, rub, gallop, no JVD, S1-S2 no S3-S4. Generalized chest pain reproduced with palpation. RESP: Clear lungs throughout bilateral, no crackles, wheeze, rhonchi, symmetrical chest rise, nonlabored, able to speak in full sentences ABD: Soft, NT, ND, no masses, positive bowel tones EXT: Pulses +24, no dependent edema MS: Normal tone x4 extremities, nontender, no obvious deformities, full range of motion NEURO: CN II through CN XII grossly intact, motor strength 5/5 PSYCH: A+O x3, flat affect, appropriate speech, mildly anxious mood, insight and judgment questionable SKIN: Normal turgor, normal texture, no lesions, no rashes, brisk cap refill, even hair distribution, left anterior chest wall incision without drainage or redness Results 07/13/18 19:10 07/13/18 19:10 Cardiac Enzymes 07/13/18 07/13/18 07/13/18 Range/Units 19:10 19:10 22:50 AST 27 (15-37) U/L CK-MB (CK-2) 3.0 (0.5-3.6) ng/mL Troponin I Less than 0.02 L Less than 0.02 L (0.02-0.05) ng/mL B-Natriuretic Peptide 49 (0-100) pg/mL 07/14/18 Range/Units 01:50 AST (15-37) U/L CK-MB (CK-2) (0.5-3.6) ng/mL Troponin I Less than 0.02 L (0.02-0.05) ng/mL B-Natriuretic Peptide (0-100) pg/mL Coagulation 07/13/18 07/13/18 Range/Units 19:10 19:10 PT 10.7 (9.8-11.6) sec APTT 25.9 (24.3-30.1) sec B-Natriuretic Peptide 49 (0-100) pg/mL CBC 07/13/18 Range/Units 19:10 WBC 7.4 (4.0-11.0) th/mm3 RBC 4.31 (4.00-5.30) mil/mm3 Hgb 12.5 (11.6-15.3) gm/dL Hct 38.1 (35.0-46.0) % Plt Count 177 D (150-450) th/mm3 Neut # (Auto) 4.6 (1.8-7.7) th/mm3 Lymph # (Auto) 2.1 (1.0-4.8) th/mm3 Mclennan # (Auto) 0.6 (0.0-0.9) th/mm3 Eos # (Auto) 0.1 (0.0-0.4) th/mm3 Baso # (Auto) 0.1 (0.0-0.2) th/mm3 Comprehensive Metabolic Panel 07/13/18 Range/Units 19:10 Sodium 138 (136-145) meq/L Potassium 3.5 (3.5-5.1) meq/L Chloride 103 (98-107) meq/L Carbon Dioxide 24.5 (21.0-32.0) meq/L BUN 29 H (7-18) mg/dL Creatinine 2.18 H (0.50-1.00) mg/dL Calcium 9.3 (8.5-10.1) mg/dL AST 27 (15-37) U/L ALT 15 (10-53) U/L Alkaline Phosphatase 60 (45-117) U/L Total Protein 7.9 (6.4-8.2) g/dL Albumin 4.3 (3.4-5.0) g/dL Intake and Output 07/13/18 07/14/18 07/14/18 22:59 06:59 14:59 Intake Total 1999 Balance 1999 Intake: IV 1999 NS Inj 1,000 ML @ Wide Open IV. 1999 SIG BOLUS SHUKRI Rx#:[id number] EKG interpretations - EKG EKG results cardiology: sinus rhythm (EKGs both NSR and atrial paced, nonspecific ST-T segment change) Caprini VTE Risk Assessment Caprini VTE Risk Assessment: No/Low Risk (score <= 1) Caprini Risk Assessment Model: Point Value = 1 Point Value = 2 Point Value = 3 Point Value = 5 Age 41-60 Minor surgery BMI > 25 kg/m2 Swollen legs Varicose veins or History of unexplained or recurrent spontaneous Oral contraceptives or hormone replacement Sepsis (< 1 month) Serious lung disease, including pneumonia (< 1 month) Abnormal pulmonary function Acute myocardial infarction Congestive heart failure (< 1 month) History of inflammatory bowel disease Medical patient at bed rest Age 61-74 Arthroscopic surgery Major open surgery (> 45 min) Laparoscopic surgery (> 45 min) Malignancy Confined to bed (> 72 hours) Immobilizing plaster cast Central venous access Age >= 75 History of VTE Family history of VTE Factor V Leiden Prothrombin [id number] Lupus anticoagulant Anticardiolipin antibodies Elevated serum homocysteine Heparin-induced thrombocytopenia Other congenital or acquired thrombophilia Stroke (< 1 month) Elective arthroplasty Hip, pelvis, or leg fracture Acute spinal cord injury (< 1 month) Prophylaxis Regimen: Total Risk Factor Score Risk Level Prophylaxis Regimen 0-1 Low Early ambulation 2 Moderate Order ONE of the following: *Sequential Compression Device (SCD) *Heparin 5000 units SQ BID 3-4 Higher Order ONE of the following medications: *Heparin 5000 units SQ TID *Enoxaparin/Lovenox 40 mg SQ daily (WT < 150 kg, CrCl > 30 mL/min) *Enoxaparin/Lovenox 30 mg SQ daily (WT < 150 kg, CrCl > 10-29 mL/min) *Enoxaparin/Lovenox 30 mg SQ BID (WT < 150 kg, CrCl > 30 mL/min) AND/OR *Sequential Compression Device (SCD) 5 or more Highest Order ONE of the following medications: *Heparin 5000 units SQ TID (Preferred with Epidurals) *Enoxaparin/Lovenox 40 mg SQ daily (WT < 150 kg, CrCl > 30 mL/min) *Enoxaparin/Lovenox 30 mg SQ daily (WT < 150 kg, CrCl > 10-29 mL/min) *Enoxaparin/Lovenox 30 mg SQ BID (WT < 150 kg, CrCl > 30 mL/min) AND *Sequential Compression Device (SCD) Assessment and Plan - Assessment (1) Musculoskeletal chest pain Code(s): R07.89 - Other chest pain Status: Acute Plan: Admitted chest pain center. ACS ruled out with 3 sets of EKGs and cardiac enzymes. Will be seen and evaluated by Dr. Sonido Michelle. Discomfort atypical, suggestive of musculoskeletal chest wall pain. Discussed with patient likely will discharge home later today with follow up with her PCP and Dr. Cervantes. Further evaluation after assessment by property utilization officer. Patient seems somewhat irritated regarding possible discharge today. Will reorder home medication as previously ordered. (2) Chronic renal failure, stage 3 (moderate) Code(s): N18.3 - Chronic kidney disease, stage 3 (moderate) Status: Chronic Plan: Follow-up with primary care provider and director of real estate as previously instructed. (3) Hypothyroidism Code(s): E03.9 - Hypothyroidism, unspecified Status: Acute Plan: Continue levothyroxine. (4) Lupus Code(s): L93.0 - Discoid lupus erythematosus Status: Acute Plan: Follow-up with primary care provider as previously instructed. Continue prednisone, potassium, and magnesium. (5) Hypertension Code(s): I10 - Essential (primary) hypertension Status: Chronic Plan: Continue amlodipine. H&P: Quality - VTE Deep Vein Thrombosis/Pulmonary Embolism Present on Admission: No (3) Hypothyroidism Qualifiers: Hypothyroidism type: unspecified Qualified Code(s): E03.9 - Hypothyroidism, unspecified (4) Lupus Qualifiers: Systemic lupus erythematosus organ involvement: unspecified (5) Hypertension Qualifiers: Hypertension type: unspecified Qualified Code(s): I10 - Essential (primary) hypertension
[2018-07-14] MEDS ORDERED: amLODIPine 5 MG Tablet PO SCH (11:30)
--- NOTE | 2018-07-14 11:44 | P.PNCA ---
Subjective Interval history: Patient was presented and discussed with the nurse practitioner. This patient is a very complicated patient with multiple (over 200) hospital admissions over the last several years. 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 She has documented Brugada syndrome and had a pacemaker AICD placed which subsequently became infected. There is suspicion of self manipulation as a cause. She was treated with a month of IV antibiotics after removal of the device and device was reimplanted when she was clean. This device also became infected again was some concern about self manipulation. After another month of IV antibiotics it was reimplanted recently and she is now complaining of pain in that site. However she also has active systemic lupus stabilized on prednisone, Crohn's disease followed by the GI group, chronic esophagitis GI problems, renal failure progressed to stage III bordering for hypothyroidism in the psychiatric issues as alluded to. She currently presents with supposedly 3 days left upper chest pain which is constant varying with episodes that are severe it is a heaviness and tightness that vacillates with sharp stabbing pain. Be begins in the AICD site and radiates into the mid chest. She also has shortness of breath and diffuse body spasms that feel like her muscles lock up. She feels like these episodes are precipitated by exertion and somewhat relieved by rest. She was evaluated to the ED and has remarkably unremarkable laboratory tests other than a BUN of 29 creatinine 2.18 and a GFR of 25. Her [address]-T wave changes but no significant change from previous. Troponins are negative 3. The patient was discussed on the phone with Dr. Painter who is extremely familiar with her and is in agreement that at this point she can be safely discharged and he is willing to follow her up in his office on Monday. Is in addition it should be noted that she is scheduled for rheumatology evaluation by in [place] and also by nephrology and in [place]. I have discussed with her that she might make an effort to seek unified care through the [facility] teaching system. Physical Exam Vital signs: Vital Signs 07/13/18 13:39 07/13/18 17:56 07/13/18 20:09 Temperature 98.7 F Pulse Rate 95 H 84 Respiratory Rate 18 14 Blood Pressure 135/68 141/78 H Pulse Oximetry 100 99 98 07/13/18 20:14 07/13/18 23:16 07/14/18 00:00 Temperature Pulse Rate 66 Respiratory Rate 16 Blood Pressure 108/62 Pulse Oximetry 98 96 98 07/14/18 00:15 07/14/18 01:15 07/14/18 03:53 Temperature 97.7 F 96.7 F L Pulse Rate 70 87 66 Respiratory Rate 18 18 Blood Pressure 99/58 L 113/69 Pulse Oximetry 98 97 07/14/18 07:50 07/14/18 08:00 Temperature 97.8 F Pulse Rate 72 Respiratory Rate 16 Blood Pressure 101/58 L Pulse Oximetry 100 98 Intake & Output 07/13/18 07/14/18 07/14/18 18:59 06:59 18:59 Intake Total 1999 Balance 1999 Weight 78.925 kg Intake: IV 1999 NS Inj 1,000 ML @ Wide Open IV. 1999 SIG BOLUS SHUKRI Rx#:[id number] Narrative: Patient was reexamined personally and I am in agreement with documentation with the single addition that I do palpate a very slight amount of fluid overlying the AICD in the left upper chest. On discussion with Dr. Painter he informs me that this was noted previously and does not appear to be a change. She has no heat no redness or obvious inflammation in the side. Assessment and Plan - Assessment (1) Musculoskeletal chest pain Code(s): R07.89 - Other chest pain Status: Acute Plan: Admitted chest pain center. ACS ruled out with 3 sets of EKGs and cardiac enzymes. Will be seen and evaluated by Dr. Sonido Michelle. Discomfort atypical, suggestive of sickle skeletal chest wall pain. D (2) Chronic renal failure, stage 3 (moderate) Code(s): N18.3 - Chronic kidney disease, stage 3 (moderate) Status: Chronic Plan: Follow-up with primary care provider and botany laboratory assistant as previously instructed. (3) Hypothyroidism Code(s): E03.9 - Hypothyroidism, unspecified Status: Acute Plan: Continue levothyroxine. (4) Lupus Code(s): L93.0 - Discoid lupus erythematosus Status: Acute Plan: Follow-up with primary care provider as previously instructed. Continue prednisone, potassium, and magnesium. (5) Hypertension Code(s): I10 - Essential (primary) hypertension Status: Chronic Plan: Continue amlodipine. (3) Hypothyroidism Qualifiers: Hypothyroidism type: unspecified Qualified Code(s): E03.9 - Hypothyroidism, unspecified (4) Lupus Qualifiers: Systemic lupus erythematosus organ involvement: unspecified (5) Hypertension Qualifiers: Hypertension type: unspecified Qualified Code(s): I10 - Essential (primary) hypertension
[2018-07-14] MEDS ORDERED: predniSONE 20 MG Tablet PO SCH (11:45)
[2018-07-14] MEDS ORDERED: Magnesium Oxide 400 MG Tablet PO SCH (12:15)
[2018-07-14 12:18] VITALS: BP 137/77; PULSE 89; RESP 17; TEMP 96.6; O2SAT 97
--- NOTE | 2018-07-14 12:25 | ECG ---
Date Performed: 07/14/2018 Time Performed: 02:00:33 PTAGE: 42 years EKG: Sinus rhythm WITH FIRST DEGREE AV BLOCK MODERATE INTRAVENTRICULAR CONDUCTION DELAY NONSPECIFIC T-WAVE ABNORMALITY PROLONGED QT INTERVAL ABNORMAL ECG But no significant change from previous PREVIOUS TRACING : 07/13/2018 18.40 DOCTOR: Sonido Michelle Interpretating Date/Time 07/14/2018 12:25:02
--- NOTE | 2018-07-14 12:28 | ECG ---
Date Performed: 07/13/2018 Time Performed: 23:54:35 PTAGE: 42 years EKG: Sinus rhythm WITH FIRST DEGREE AV BLOCK INTRAVENTRICULAR CONDUCTION DELAY ABNORMAL ECG Other than baseline artifa ct NO PREVIOUS TRACING DOCTOR: Sonido Michelle Interpretating Date/Time 07/14/2018 12:26:59
--- NOTE | 2018-07-14 12:32 | ECG ---
Date Performed: 07/13/2018 Time Performed: 18:40:34 PTAGE: 42 years EKG: Sinus rhythm POSSIBLE LEFT ATRIAL ENLARGEMENT INTRAVENTRICULAR CONDUCTION DELAY ABNORMAL ECG No significant foster e PREVIOUS TRACING : 06/27/2018 17.54 DOCTOR: Sonido Michelle Interpretating Date/Time 07/17/2018 07:28:25
[2018-07-14] MEDS: Sod Chloride 0.9% Inj 1,000 ML IV.SIG SCH (12:55)
[2018-07-15] MEDS ORDERED: Levothyroxine 112 MCG Tablet PO SCH (06:00)
== END 2018-07-14 16:20 | disposition home or self-care (01) ==
LOC: NEPC 13:32 → NEDA 13:32 → NEPHCDU 07-14 00:16
PROVIDERS: ADMIT Internal Medicine Interventional Cardiology; ATTEND Internal Medicine Interventional Cardiology

== ENCOUNTER 2018-07-24 16:53 | Observation (INO) ==
--- NOTE | 2018-07-24 17:12 | ED ---
HPI General Chief complaint: Weakness Stated complaint: Weakness Time Seen by Provider: 07/24/18 16:57 Source: patient, EMS, RN notes reviewed and old records reviewed Mode of arrival: EMS Limitations: no limitations History of Present Illness HPI Narrative: The patient was brought in by rescue for episode of symptomatic bradycardia. She has a significant past medical history that includes defibrillator history of Brugada syndrome Crohn's disease lupus and complications with her a defibrillator that had to be replaced 3 times due to post op infection. Patient stated that she was at the grocery store and was walking around started feeling very unsteady and dizzy so she had somebody help her. She was stable as far as her blood pressure and mentation so the put in a gurney on the way here the patient converted to normal sinus rhythm. called 911. EMS reported a heart rate between 20 and 40 bpm's on arrival she denies any chest pain at this time. Reports that she had several falls that she really did not hit her head but she is not sure. Onset (ago): minute(s) (30) Duration: now resolved Location: generalized Context: new medication (amlodipine switched from 5mg to 10mg this morning and she took it about 2 hours prior to her symptoms) Related Data Home Medications Medication Instructions Recorded Confirmed levothyroxine [Synthroid] 112 mcg PO DAILY 05/08/18 07/24/18 magnesium 100 mg PO QID 05/08/18 07/24/18 pantoprazole [Protonix] 40 mg PO DAILY 05/08/18 07/24/18 potassium chloride 40 meq PO TID 05/08/18 07/24/18 potassium phosphate, monobasic 1,000 mg PO TID 05/08/18 07/24/18 [K-Phos Original] prednisone 30 mg PO DAILY 05/08/18 07/24/18 spironolactone 25 mg PO DAILY 05/08/18 07/24/18 amlodipine 10 mg PO DAILY 07/24/18 07/24/18 Previous Rx's Medication Instructions Recorded diazepam [Valium] 10 mg PO Q8HR PRN tab 05/09/18 morphine 15 mg PO Q8HR PRN tab 05/09/18 Allergies Allergy/AdvReac Type Severity Reaction Status Date / Time cephalexin Allergy Severe RASH,SWELLI Verified 07/13/18 17:57 NG Fish Containing Products Allergy Severe SWELLING Verified 07/13/18 17:57 IN THROAT, SOB ketorolac Allergy Severe RASH Verified 07/13/18 17:57 penicillin G Allergy Severe RASH,SWELLI Verified 07/13/18 17:57 NG prochlorperazine Allergy Mild DYSTONIC Verified 07/13/18 17:57 REACTION promethazine Allergy Mild DYSTONIC Verified 07/13/18 17:57 REACTION Review of Systems ROS: all other systems reviewed are negative [facility] Medical History Medical History Anxiety (Acute) Brugada syndrome (Acute) Crohn's disease (Acute) Endometriosis (Acute) Esophagitis (Acute) Gastroparesis (Acute) Hypokalemia (Acute) Hypothyroidism (Acute) Interstitial cystitis (Acute) Lupus (Acute) PTSD (post-traumatic stress disorder) (Acute) Renal disease (Acute) Surgical History Surgical History AICD (automatic cardioverter/defibrillator) present (Acute) History of appendectomy (Acute) History of partial hysterectomy (Acute) Family History Family History Mother Prinzmetal angina Social History Social History Substance History: No History of Abuse Second Hand Smoke Exposure: No Smoking Status: Never smoker How Often Do You Have a Drink Containing Alcohol: Never Hx Recent Travel: No Recent Travel in [facility] within the Last 8 Weeks: No Recent Out of Country Travel within the Last 8 Weeks: No Immunization History Tetanus Immunization: <5 Years Hx Influenza Vaccine This Season: No Exam Narrative Exam Narrative: GENERAL: Alert and oriented no distress SKIN: Focused skin assessment warm/dry. HEAD: Atraumatic. Normocephalic. EYES: Pupils equal and round. No scleral icterus. No injection or drainage. ENT: No nasal bleeding or discharge. Mucous membranes pink and moist. NECK: Trachea midline. No JVD. CARDIOVASCULAR: Regular rate and rhythm. No murmur appreciated. RESPIRATORY: No accessory muscle use. Clear to auscultation. Breath sounds equal bilaterally. GASTROINTESTINAL: Abdomen soft, non-tender, nondistended. Hepatic and splenic margins not palpable. MUSCULOSKELETAL: No obvious deformities. No clubbing. No cyanosis. No edema. NEUROLOGICAL: Awake and alert. No obvious cranial nerve deficits. Motor grossly within normal limits. Normal speech. PSYCHIATRIC: Appropriate mood and affect; insight and judgment normal. Chest Other: Defibrillator left upper chest appears intact no signs of infection. Course Initial Documented Vital Signs Pulse Rate 82 07/24/18 16:57 Respiratory Rate 18 07/24/18 16:57 Blood Pressure 137/73 07/24/18 16:57 Pulse Oximetry 98 07/24/18 16:57 Last Documented Vital Signs Temperature 98.0 F 07/25/18 07:48 Pulse Rate 66 07/25/18 07:48 Respiratory Rate 20 07/25/18 07:48 Blood Pressure 105/49 L 07/25/18 07:48 Pulse Oximetry 100 07/25/18 07:48 Medical Decision Making MDM Narrative Medical Screen Exam Complete: Yes Emergency Medical Condition: Yes Medical Records Medical records reviewed: Yes I reviewed the patient's medical records. Lab Data Lab results reviewed: Yes I reviewed the patient's lab results. Result diagrams: 07/25/18 07:13 07/24/18 17:20 Lab Results 07/24/18 07/24/18 07/24/18 Range/Units 17:20 17:20 17:20 WBC 8.3 (4.0-11.0) th/mm3 RBC 3.58 L (4.00-5.30) mil/mm3 Hgb 10.5 L (11.6-15.3) gm/dL Hct 31.7 L (35.0-46.0) % MCV 88.5 (80.0-100.0) fL MCH 29.3 (27.0-34.0) pg MCHC 33.1 (32.0-36.0) % RDW 14.3 (11.6-17.2) % Plt Count 117 L D (150-450) th/mm3 MPV 7.8 (7.0-11.0) fL Neut % (Auto) 72.4 H (16.0-70.0) % Lymph % (Auto) 14.9 (9.0-44.0) % [place] % (Auto) 10.3 H (0.0-8.0) % Eos % (Auto) 1.7 (0.0-4.0) % Baso % (Auto) 0.7 (0.0-2.0) % Neut # (Auto) 6.0 (1.8-7.7) th/mm3 Lymph # (Auto) 1.2 (1.0-4.8) th/mm3 [place] # (Auto) 0.9 (0.0-0.9) th/mm3 Eos # (Auto) 0.1 (0.0-0.4) th/mm3 Baso # (Auto) 0.1 (0.0-0.2) th/mm3 WBC Differential . Differential Comment Auto diff final PT 9.8 (9.8-11.6) sec INR 1.0 Ratio APTT 24.7 (24.3-30.1) sec Sodium 142 (136-145) meq/L Potassium 3.6 (3.5-5.1) meq/L Chloride 107 (98-107) meq/L Carbon Dioxide 27.3 (21.0-32.0) meq/L Anion Gap 8 (5-15) meq/L BUN 26 H (7-18) mg/dL Creatinine 2.58 H (0.50-1.00) mg/dL Estimated GFR 20 L (>89) mL/min Random Glucose 87 (74-106) mg/dL Calcium 8.7 (8.5-10.1) mg/dL Magnesium 1.7 (1.5-2.5) mg/dL Troponin I Less than 0.02 L (0.02-0.05) ng/mL Beta HCG, Qual (0-5) mIU/mL 07/24/18 07/25/18 Range/Units 17:20 07:13 WBC 7.1 (4.0-11.0) th/mm3 RBC 3.32 L (4.00-5.30) mil/mm3 Hgb 9.7 L (11.6-15.3) gm/dL Hct 29.9 L (35.0-46.0) % MCV 90.0 (80.0-100.0) fL MCH 29.2 (27.0-34.0) pg MCHC 32.4 (32.0-36.0) % RDW 14.5 (11.6-17.2) % Plt Count 113 L (150-450) th/mm3 MPV 8.2 (7.0-11.0) fL Neut % (Auto) 61.2 (16.0-70.0) % Lymph % (Auto) 25.4 (9.0-44.0) % [place] % (Auto) 9.5 H (0.0-8.0) % Eos % (Auto) 3.3 (0.0-4.0) % Baso % (Auto) 0.6 (0.0-2.0) % Neut # (Auto) 4.3 (1.8-7.7) th/mm3 Lymph # (Auto) 1.8 (1.0-4.8) th/mm3 [place] # (Auto) 0.7 (0.0-0.9) th/mm3 Eos # (Auto) 0.2 (0.0-0.4) th/mm3 Baso # (Auto) 0.0 (0.0-0.2) th/mm3 WBC Differential . Differential Comment Auto diff final PT (9.8-11.6) sec INR Ratio APTT (24.3-30.1) sec Sodium (136-145) meq/L Potassium (3.5-5.1) meq/L Chloride (98-107) meq/L Carbon Dioxide (21.0-32.0) meq/L Anion Gap (5-15) meq/L BUN (7-18) mg/dL Creatinine (0.50-1.00) mg/dL Estimated GFR (>89) mL/min Random Glucose (74-106) mg/dL Calcium (8.5-10.1) mg/dL Magnesium (1.5-2.5) mg/dL Troponin I (0.02-0.05) ng/mL Beta HCG, Qual Less than 1.0 (0-5) mIU/mL Imaging Data Radiologist's impression: Abdomen/Bladder Ultrasound 07/24/18 00:00 CONCLUSION: 1. Negative renal sonogram. Chest X-Ray 07/24/18 17:08 CONCLUSION: Unremarkable single view the chest. Left subclavian pacer in excellent position Head CT 07/24/18 17:08 CONCLUSION: 1. No acute intracranial abnormality. . ECG Data EKG Prior to Arrival: Yes Attestation: I personally reviewed and interpreted this ECG as follows: Prior ECG tracings: available for review Interpretation: Patient with sinus bradycardia 45 bpm on the EMS run sheet. Paramedics also reported heart rate of 20. Sinus rhythm 83 bpm QTc and OR intervals within normal limits nonspecific ST-T wave abnormalities. Intraventricular conduction delay. No STEMI Discharge Plan Discharge Disposition Patient Disposition: 30 Still Patient Discharge Condition Condition: Stable Discharge Details Diagnosis: Acute kidney injury superimposed on CKD, Symptomatic sinus bradycardia Physicians Team ED Provider: Noel Dumont Primary Care Provider: Delma Jaramillo Attending Provider: Clayton Gill Discharge Interventions Interventions: ED Discharge Assessment Last Done: 07/24/18 21:00 Status ED Status: Left Department Discharge Information Discharge Date/Time: 07/24/18 21:00
[2018-07-24 17:50] LABS: Baso # (Auto) 0.1 th/mm3 (0.0-0.2); Baso % (Auto) 0.7 % (0.0-2.0); Eos # (Auto) 0.1 th/mm3 (0.0-0.4); Eos % (Auto) 1.7 % (0.0-4.0); Hematocrit 31.7 % (35.0-46.0); Hemoglobin 10.5 gm/dL (11.6-15.3); Lymph # (Auto) 1.2 th/mm3 (1.0-4.8); Lymph % (Auto) 14.9 % (9.0-44.0); Mean Corpuscular HGB Conc 33.1 % (32.0-36.0); Mean Corpuscular Hemoglobin 29.3 pg (27.0-34.0); Mean Corpuscular Volume 88.5 fL (80.0-100.0); Mean Platelet Volume 7.8 fL (7.0-11.0); Mono # (Auto) 0.9 th/mm3 (0.0-0.9); Mono % (Auto) 10.3 % (0.0-8.0); Neut % (Auto) 72.4 % (16.0-70.0); Platelet Count 117 th/mm3 (150-450); Red Blood Count 3.58 mil/mm3 (4.00-5.30); Red Cell Distribution Width 14.3 % (11.6-17.2); White Blood Count 8.3 th/mm3 (4.0-11.0)
[2018-07-24 18:01] LABS: Activated Partial Thrombo Time 24.7 sec (24.3-30.1); Prothrombin Time 9.8 sec (9.8-11.6)
[2018-07-24 18:16] LABS: Anion Gap 8 meq/L (5-15); Blood Urea Nitrogen 26 mg/dL (7-18); Calcium 8.7 mg/dL (8.5-10.1); Carbon Dioxide 27.3 meq/L (21.0-32.0); Chloride 107 meq/L (98-107); Glomerular Filtration Rate 20 mL/min (>89); Glucose,Random 87 mg/dL (74-106); Magnesium 1.7 mg/dL (1.5-2.5); Potassium 3.6 meq/L (3.5-5.1); Sodium 142 meq/L (136-145)
[2018-07-24] MEDS ORDERED: Sod Chloride 0.9% Inj 1,000 ML IV.SIG ONE (19:01)
[2018-07-24] MEDS ORDERED: Bisacodyl 10 MG Supp RECTAL PRN (19:31)
[2018-07-24] MEDS ORDERED: Acetaminophen 325 MG Tablet PO PRN (19:31)
[2018-07-24] MEDS ORDERED: Morphine Inj 4 MG/ML Vial IV.PUSH ONE (19:32)
[2018-07-24] MEDS ORDERED: Morphine Sulfate 15 MG IR Tablet PO PRN (19:35)
[2018-07-24] MEDS: Sod Chloride 0.9% Inj 1,000 ML IV.CONT SCH (21:24)
[2018-07-24] MEDS: Magnesium Oxide 400 MG Tablet PO SCH (23:28)
[2018-07-25] MEDS: Morphine Sulfate 15 MG IR Tablet PO PRN ×2 (00:28→10:18)
[2018-07-25] MEDS ORDERED: Levothyroxine 112 MCG Tablet PO SCH (06:00)
[2018-07-25] MEDS: Sod Chloride 0.9% Inj 1,000 ML IV.CONT SCH (06:44)
[2018-07-25 07:35] LABS: Baso % (Auto) 0.6 % (0.0-2.0); Eos # (Auto) 0.2 th/mm3 (0.0-0.4); Eos % (Auto) 3.3 % (0.0-4.0); Hematocrit 29.9 % (35.0-46.0); Hemoglobin 9.7 gm/dL (11.6-15.3); Lymph # (Auto) 1.8 th/mm3 (1.0-4.8); Lymph % (Auto) 25.4 % (9.0-44.0); Mean Corpuscular HGB Conc 32.4 % (32.0-36.0); Mean Corpuscular Hemoglobin 29.2 pg (27.0-34.0); Mean Platelet Volume 8.2 fL (7.0-11.0); Mono # (Auto) 0.7 th/mm3 (0.0-0.9); Mono % (Auto) 9.5 % (0.0-8.0); Neut # (Auto) 4.3 th/mm3 (1.8-7.7); Neut % (Auto) 61.2 % (16.0-70.0); Platelet Count 113 th/mm3 (150-450); Red Blood Count 3.32 mil/mm3 (4.00-5.30); Red Cell Distribution Width 14.5 % (11.6-17.2); White Blood Count 7.1 th/mm3 (4.0-11.0)
[2018-07-25 08:11] LABS: Calcium 7.8 mg/dL (8.5-10.1); Carbon Dioxide 28.8 meq/L (21.0-32.0); Potassium 3.5 meq/L (3.5-5.1)
[2018-07-25] MEDS ORDERED: Spironolactone 25 MG Tablet PO SCH (09:00)
[2018-07-25] MEDS ORDERED: predniSONE 10 MG Tablet PO SCH (09:00)
[2018-07-25] MEDS ORDERED: amLODIPine 10 MG Tablet PO SCH (09:00)
[2018-07-25] MEDS: Magnesium Oxide 400 MG Tablet PO SCH (10:18)
[2018-07-25] MEDS: Potassium Phosphate 500 MG Soluble Tablet PO SCH ×2 (11:30→13:51)
--- NOTE | 2018-07-25 21:35 | ECG ---
Date Performed: 07/24/2018 Time Performed: 17:03:39 PTAGE: 42 years EKG: Sinus rhythm MODERATE INTRAVENTRICULAR CONDUCTION DELAY NONSPECIFIC ST & T-WAVE ABNORMALITY ABNORMAL ECG Since th e PREVIOUS TRACING , no significant change noted DOCTOR: Sandra Craig Interpretating Date/Time 07/25/2018 21:33:45
== END 2018-07-25 14:54 | disposition home or self-care (01) ==
LOC: NEPC 16:53 → NEDA 16:53 → NEPHCDU 21:00
PROVIDERS: ADMIT Hospitalist; ATTEND Hospitalist
DX: K20.9 Esophagitis, unspecified; F43.10 Post-traumatic stress disorder, unspecified; I49.8 Other specified cardiac arrhythmias; Z90.49 Acquired absence of other specified parts of digestive tract; R29.6 Repeated falls; E86.0 Dehydration; N18.3 Chronic kidney disease, stage 3 (moderate); R55 Syncope and collapse; E03.9 Hypothyroidism, unspecified; Z88.0 Allergy status to penicillin; N30.10 Interstitial cystitis (chronic) without hematuria; Z95.810 Presence of automatic (implantable) cardiac defibrillator; N17.9 Acute kidney failure, unspecified; M32.9 Systemic lupus erythematosus, unspecified; K31.84 Gastroparesis; G89.29 Other chronic pain; E87.6 Hypokalemia; K50.90 Crohn's disease, unspecified, without complications; Z90.710 Acquired absence of both cervix and uterus; N80.9 Endometriosis, unspecified

== ENCOUNTER 2018-08-02 23:13 | Inpatient (IN) ==
[2018-08-02] MEDS ORDERED: DOPamine 800 MG/500 ML Premix 800 MG/500 ML PLAST..BAG IV.CONT PRN (23:19)
[2018-08-02] MEDS ORDERED: DOPamine 400 MG/250 ML Premix 400 MG/250 ML BAG IV.CONT ONE (23:21)
--- NOTE | 2018-08-02 23:51 | ED ---
HPI General Chief complaint: Medical Clearance Stated complaint: Medical,Evac Time Seen by Provider: 08/02/18 23:19 Source: patient and EMS Mode of arrival: EMS Limitations: no limitations History of Present Illness HPI Narrative: 42-year-old female complains of generalized weakness. Patient has history of Brugada syndrome with symptomatic bradycardia in the past. Patient status post AICD pacer placement in the past. EMS was called today because patient was feeling weakness pale and diaphoretic. Patient was found to have bradycardia with a rate in the 30s and 40s wide-complex on the monitor. External pacer was applied. Patient was transported to ED for evaluation. Patient complains of pain all over the body. Patient has history of chronic kidney disease, gastroparesis, hypothyroidism, lupus, chronic pain. Patient also has history of anxiety, Crohn's disease, endometriosis, esophagitis, hypothyroidism, hypokalemia and anemia. MD Complaint: generalized weakness Onset (ago): minute(s) Duration: constant Location: generalized Migration: none Severity: severe Relieving factors: none Exacerbating factors: none Associated symptoms: diaphoresis Related Data Home Medications Medication Instructions Recorded Confirmed levothyroxine [Synthroid] 112 mcg PO DAILY 05/08/18 07/24/18 magnesium 100 mg PO QID 05/08/18 07/24/18 pantoprazole [Protonix] 40 mg PO DAILY 05/08/18 07/24/18 potassium chloride 40 meq PO TID 05/08/18 07/24/18 potassium phosphate, monobasic 1,000 mg PO TID 05/08/18 07/24/18 [K-Phos Original] prednisone 30 mg PO DAILY 05/08/18 07/24/18 spironolactone 25 mg PO DAILY 05/08/18 07/24/18 Previous Rx's Medication Instructions Recorded diazepam [Valium] 10 mg PO Q8HR PRN tab 05/09/18 morphine 15 mg PO Q8HR PRN tab 05/09/18 amlodipine 5 mg PO BID 30 Days #30 tab 07/25/18 Allergies Allergy/AdvReac Type Severity Reaction Status Date / Time cephalexin Allergy Severe RASH,SWELLI Verified 07/13/18 17:57 NG Fish Containing Products Allergy Severe SWELLING Verified 07/13/18 17:57 IN THROAT, SOB ketorolac Allergy Severe RASH Verified 09/07/18 17:57 penicillin G Allergy Severe RASH,SWELLI Verified 07/13/18 17:57 NG prochlorperazine Allergy Mild DYSTONIC Verified 07/13/18 17:57 REACTION promethazine Allergy Mild DYSTONIC Verified 07/13/18 17:57 REACTION Review of Systems ROS: all other systems reviewed are negative PMFSH History History 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 Medical History Medical History Anxiety (Acute) Brugada syndrome (Acute) Crohn's disease (Acute) Endometriosis (Acute) Esophagitis (Acute) Gastroparesis (Acute) Hypokalemia (Acute) Hypothyroidism (Acute) Interstitial cystitis (Acute) Lupus (Acute) PTSD (post-traumatic stress disorder) (Acute) Renal disease (Acute) Surgical History Surgical History AICD (automatic cardioverter/defibrillator) present (Acute) History of appendectomy (Acute) History of partial hysterectomy (Acute) Family History Family History Mother Prinzmetal angina Social History Social History Substance History: No History of Abuse Second Hand Smoke Exposure: No Smoking Status: Never smoker How Often Do You Have a Drink Containing Alcohol: Never Hx Recent Travel: No Exam Narrative Exam Narrative: GENERAL: Well-nourished, well-developed patient. SKIN: Focused skin assessment warm/dry. HEAD: Normocephalic. EYES: No scleral icterus. No injection or drainage. NECK: Supple, trachea midline. No JVD or lymphadenopathy. CARDIOVASCULAR: Patient on external pacer with a rate set at 70. RESPIRATORY: Breath sounds equal bilaterally. No accessory muscle use. GASTROINTESTINAL: Abdomen soft, non-tender, nondistended. MUSCULOSKELETAL: No cyanosis, or edema. BACK: Nontender without obvious deformity. No CVA tenderness. Neurologic exam normal. Course Initial Documented Vital Signs Pulse Rate 69 08/02/18 23:18 Respiratory Rate 22 08/02/18 23:18 Blood Pressure 156/103 H 08/02/18 23:18 Pulse Oximetry 100 08/02/18 23:18 Last Documented Vital Signs Pulse Rate 73 08/03/18 01:05 Respiratory Rate 20 08/03/18 01:05 Blood Pressure 100/49 L 08/03/18 01:05 Pulse Oximetry 98 08/03/18 01:05 Medical Decision Making MDM Narrative Medical decision making narrative: 42-year-old female with symptomatic bradycardia. History of Brugada syndrome. External pacer applied. Dopamine drip started. [place] Valves will be consulted to interrogate her AICD. Medical Screen Exam Complete: Yes Emergency Medical Condition: Yes Differential Diagnosis Differential Diagnosis: Differential diagnosis including symptomatic bradycardia , electrolyte abnormality, AR Lab Data Lab results reviewed: Yes I reviewed the patient's lab results. Result diagrams: 08/02/18 23:35 08/02/18 23:35 Lab Results 08/02/18 08/02/18 08/02/18 Range/Units 23:35 23:35 23:35 WBC 10.1 (4.0-11.0) th/mm3 RBC 3.36 L (4.00-5.30) mil/mm3 Hgb 9.6 L (11.6-15.3) gm/dL Hct 29.8 L (35.0-46.0) % MCV 88.6 (80.0-100.0) fL MCH 28.5 (27.0-34.0) pg MCHC 32.1 (32.0-36.0) % RDW 14.4 (11.6-17.2) % Plt Count 223 D (150-450) th/mm3 MPV 8.1 (7.0-11.0) fL Neut % (Auto) 55.6 (16.0-70.0) % Lymph % (Auto) 28.8 (9.0-44.0) % [place] % (Auto) 9.2 H (0.0-8.0) % Eos % (Auto) 5.6 H (0.0-4.0) % Baso % (Auto) 0.8 (0.0-2.0) % Neut # (Auto) 5.6 (1.8-7.7) th/mm3 Lymph # (Auto) 2.9 (1.0-4.8) th/mm3 [place] # (Auto) 0.9 (0.0-0.9) th/mm3 Eos # (Auto) 0.6 H (0.0-0.4) th/mm3 Baso # (Auto) 0.1 (0.0-0.2) th/mm3 WBC Differential . Differential Comment Auto diff final PT 10.9 (9.8-11.6) sec INR 1.1 Ratio APTT 26.0 (24.3-30.1) sec Sodium 140 (136-145) meq/L Potassium 3.3 L (3.5-5.1) meq/L Chloride 104 (98-107) meq/L Carbon Dioxide 22.5 (21.0-32.0) meq/L Anion Gap 14 (5-15) meq/L BUN 18 (7-18) mg/dL Creatinine 2.55 H (0.50-1.00) mg/dL Estimated GFR 21 L (>89) mL/min Random Glucose 162 H (74-106) mg/dL Calcium 8.0 L (8.5-10.1) mg/dL Magnesium 1.8 (1.5-2.5) mg/dL Total Bilirubin 0.4 (0.2-1.0) mg/dL AST 15 (15-37) U/L ALT 13 (10-53) U/L Alkaline Phosphatase 59 (45-117) U/L Total Creatine Kinase 58 (26-192) U/L Troponin I Less than 0.02 L (0.02-0.05) ng/mL Total Protein 6.1 L (6.4-8.2) g/dL Albumin 3.2 L (3.4-5.0) g/dL Imaging Data Attestation: I personally reviewed and interpreted this imaging study as follows : Radiologist's impression: Chest X-Ray 08/02/18 23:22 CONCLUSION: No acute cardiopulmonary disease demonstrated. Discharge Plan Discharge Disposition Patient Disposition: 30 Still Patient Discharge Details Diagnosis: Symptomatic bradycardia, SLE (systemic lupus erythematosus), Brugada syndrome, Renal insufficiency, Acute hypokalemia Physicians Team ED Provider: Malik Nowak Primary Care Provider: Primary Care ElmoiAnjelica Rxs /Orders / Referrals /Forms Prescriptions: No Action prednisone 20 mg Tablet 30 mg PO DAILY RF: 0 spironolactone 25 mg Tablet 25 mg PO DAILY RF: 0 pantoprazole [Protonix] 40 mg Tablet,Delayed Release (Dr/Ec) 40 mg PO DAILY RF: 0 levothyroxine [Synthroid] 112 mcg Tablet 112 mcg PO DAILY RF: 0 magnesium 200 mg Tablet 100 mg PO QID RF: 0 potassium phosphate, monobasic [K-Phos Original] 500 mg Tablet,Soluble 1,000 mg PO TID RF: 0 potassium chloride 20 mEq Tablet Extended Release 40 meq PO TID RF: 0 diazepam [Valium] 10 mg Tablet 10 mg PO Q8HR PRN (Reason: Acute Pain) RF: 0 morphine 15 mg Tablet 15 mg PO Q8HR PRN (Reason: Acute Pain) RF: 0 amlodipine 10 mg Tablet 5 mg PO BID 30 Days Qty: 30 RF: 0 Discharge Interventions Interventions: Vital Signs Last Done: 08/03/18 01:05 Status ED Status: With Doctor
[2018-08-02 23:53] LABS: Baso # (Auto) 0.1 th/mm3 (0.0-0.2); Baso % (Auto) 0.8 % (0.0-2.0); Eos # (Auto) 0.6 th/mm3 (0.0-0.4); Eos % (Auto) 5.6 % (0.0-4.0); Hematocrit 29.8 % (35.0-46.0); Hemoglobin 9.6 gm/dL (11.6-15.3); Lymph # (Auto) 2.9 th/mm3 (1.0-4.8); Lymph % (Auto) 28.8 % (9.0-44.0); Mean Corpuscular HGB Conc 32.1 % (32.0-36.0); Mean Corpuscular Hemoglobin 28.5 pg (27.0-34.0); Mean Corpuscular Volume 88.6 fL (80.0-100.0); Mean Platelet Volume 8.1 fL (7.0-11.0); Mono # (Auto) 0.9 th/mm3 (0.0-0.9); Mono % (Auto) 9.2 % (0.0-8.0); Neut # (Auto) 5.6 th/mm3 (1.8-7.7); Neut % (Auto) 55.6 % (16.0-70.0); Platelet Count 223 th/mm3 (150-450); Red Blood Count 3.36 mil/mm3 (4.00-5.30); Red Cell Distribution Width 14.4 % (11.6-17.2); White Blood Count 10.1 th/mm3 (4.0-11.0)
[2018-08-03 00:06] LABS: INR 1.1 Ratio; Prothrombin Time 10.9 sec (9.8-11.6)
[2018-08-03] MEDS: Sod Chloride 0.9% Inj 1,000 ML IV.CONT SCH ×4 (00:12→19:33)
--- NOTE | 2018-08-03 00:18 | XR ---
EXAM DATE: 08/03/2018 11:22 PM EDT AGE/SEX: 42 years / Female INDICATIONS: Chest pain starting today CLINICAL DATA: This is the patient's initial encounter. Patient reports that signs and symptoms have been present for 1 day and indicates a pain score of Nonresponsive. MEDICAL/SURGICAL HISTORY: Hypertension. Pacemaker. COMPARISON: C, CHEST 1V SINGLE AP, 07/24/2018. . FINDINGS: No infiltrate, effusion or pneumothorax demonstrated. Heart size stable, upper limits of normal. Cardiac pacer/defibrillator again noted. CONCLUSION: No acute cardiopulmonary disease demonstrated. Electronically signed by: Brian Arrieta MD 08/03/2018 12:16 AM EDT
[2018-08-03 00:20] LABS: Alanine Aminotransferase 13 U/L (10-53); Albumin 3.2 g/dL (3.4-5.0); Anion Gap 14 meq/L (5-15); Aspartate Aminotransferase 15 U/L (15-37); Blood Urea Nitrogen 18 mg/dL (7-18); Carbon Dioxide 22.5 meq/L (21.0-32.0); Chloride 104 meq/L (98-107); Glomerular Filtration Rate 21 mL/min (>89); Glucose,Random 162 mg/dL (74-106); Magnesium 1.8 mg/dL (1.5-2.5); Potassium 3.3 meq/L (3.5-5.1); Sodium 140 meq/L (136-145)
[2018-08-03 00:24] LABS: Alkaline Phosphatase 59 U/L (45-117); Total Protein 6.1 g/dL (6.4-8.2)
[2018-08-03 00:38] LABS: Creatine Kinase 58 U/L (26-192)
[2018-08-03] MEDS ORDERED: Magnesium Sulfate Inj 2 GM in Sodium Chlor 0.9% Inj 96 ML IV.SIG PRN (03:38)
[2018-08-03] MEDS ORDERED: Magnesium Oxide 400 MG Tablet PO PRN (03:38)
[2018-08-03] MEDS ORDERED: Potassium Chlor 40 mEq Premix 40 MEQ/100 ML PIGGYBACK IV.SIG PRN ×2 (03:38)
[2018-08-03] MEDS ORDERED: Potassium Chlor 20 mEq Premix 20 MEQ/100 ML PIGGYBACK IV.SIG PRN ×2 (03:38)
[2018-08-03] MEDS ORDERED: Potassium Phosphate 500 MG Soluble Tablet PO PRN ×2 (03:38)
[2018-08-03] MEDS ORDERED: Potassium Chloride 25 MEQ Effervescent Tablet PO PRN (03:38)
[2018-08-03] MEDS ORDERED: Magnesium Sulfate Inj 4 GM in Sodium Chlor 0.9% Inj 92 ML IV.SIG PRN (03:38)
[2018-08-03] MEDS ORDERED: Sodium Phosphate Inj 30 MMOL in Sodium Chlor 0.9% Inj 250 ML IV.SIG PRN (03:38)
[2018-08-03] MEDS ORDERED: Potassium Phosphate Inj 30 MMOL in Sodium Chlor 0.9% Inj 250 ML IV.SIG PRN (03:38)
--- NOTE | 2018-08-03 04:34 | P.HPCC ---
History of Present Illness Service: Critical care medicine Primary Care Physician: No Primary Care Physician Chief Complaint: Weakness, bradycardia History of Present Illness: 42-year-old female with past medical history of systemic lupus erythematosus, Crohn's disease, hypothyroidism, endometriosis, gastroparesis, chronic kidney disease stage III, interstitial cystitis, Brugada syndrome with ICD replaced 06/27/[address] Cervantes. 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 She states she was taking a shower this evening and felt weak and presyncopal. She was transported by [facility] with heart rate 30s to 40s. Upon arrival she had ventricular paced rhythm at a rate of 40. Her blood pressure was 78/35. Transcutaneous pacer was placed with backup rate of 60. She was started on dopamine which has been titrated up to 16 mcg/kg/min with heart rate in the 70s-80s and blood pressure 93/51. Her pacemaker was interrogated and was noted to be intermittently capturing. I do not appreciate damage to lead or definite migration on chest x-ray though image is rotated c/ w prior. Dr. Nowak discussed with Dr. English who recommended Dopamine with backup transcutaneous pacing and consultation with Dr. Cervantes in the morning. Patient states that she began feeling weak about a week and a half ago when her Norvasc was increased. It was initially increased to 10 mg p.o. daily. Was recently admitted 07/24-07/25 and at that time was told to take Norvasc 5 mill grams p.o. twice daily which she states she has been taking as prescribed. She denies chest pain or shortness of breath. She became nauseated and vomited small amount of emesis, nonbloody nonbilious after arrival to the ED. She states she has some tenderness of the chest wall, noted some drainage 2 days ago from anterior incision but I do not see any now. She states yesterday she had a temp 102.7. She is afebrile in the ED without leukocytosis. She does have history of pocket infection in december 2017 and 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 and then replaced in [facility] (original device placed 10/03/17). She had additional chest wall infection 02/2018 with MRSA resulting in device removal and wound vac placement. ICD was replaced 06/27/[address] Cervantes. She states she has a prior history of menorrhagia and has had vaginal bleeding for about a month. It has been heavier over the last couple of days changing 1 pad per hour. Her hemoglobin is 9.6, previously 9.7 on 07/25. - Diagnosis (1) Hypotension (2) CKD (chronic kidney disease) stage 3, GFR 30-59 ml/min (3) Symptomatic bradycardia (4) Acute hypokalemia (5) Chronic pain (6) Medical non-compliance Inpatient Certification: I certify that the inpatient services were ordered in accordance with Medicare regulations governing the order. This includes certification that hospital inpatient services are reasonable and necessary and in the case of services not specified as inpatient-only under 42 CFR 419.22(n), that they are appropriately provided as inpatient services in accordance to with the 2-midnight benchmark under 43 CFR 412.3(e) Review of Systems All other systems reviewed negative except as stated in HPI PMFSH - History History 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 - Medical History Medical History: Medical History (Last Updated 08/03/18 @ 05:27 by Suzette Pineda MD) CKD (chronic kidney disease) stage 3, GFR 30-59 ml/min Gastroparesis Anxiety Brugada syndrome Crohn's disease Endometriosis Esophagitis Gastroparesis Hypokalemia Hypothyroidism Interstitial cystitis Lupus PTSD (post-traumatic stress disorder) - Surgical History Surgical History: Surgical History (Last Updated 08/03/18 @ 05:29 by Suzette Pineda MD) History of laparoscopy Hx of colonoscopy Hx of cystoscopy Hx of esophagogastroduodenoscopy AICD (automatic cardioverter/defibrillator) present History of appendectomy - Family History Family History: Family History (Last Updated 08/03/18 @ 05:29 by Suzette Pineda MD) Mother Prinzmetal angina Breast cancer - Tobacco History Second Hand Smoke Exposure: No Smoking Status: Never smoker - Alcohol History How Often Do You Have a Drink Containing Alcohol: Never - Substance Use History Substance History: No History of Abuse - Travel History History of Recent Travel: No - Immunization History Tetanus Immunization: <5 Years Hx Influenza Vaccine This Season: No Medications and Allergies Active Medications: Active Medications Dopamine HCl/Dextrose (Dopamine 800 Mg/500 Ml Premix) 800 mg in 500 mls @ 9.696 mls/hr IV.CONT TITRATE PRN; Protocol PRN Reason: Per Protocol Sodium Chloride (Ns Inj) 1,000 mls @ 125 mls/hr IV.CONT .Q8H SHUKRI Last Admin: 08/03/18 00:12 Dose: 125 mls/hr Magnesium Sulfate 4 gm/ Sodium (Chloride) 100 mls @ 50 mls/hr IV.SIG UNSCH PRN PRN Reason: For Magnesium 0.9 - 1.1 mg/dL Magnesium Sulfate 2 gm/ Sodium (Chloride) 100 mls @ 50 mls/hr IV.SIG UNSCH PRN PRN Reason: For Magnesium 1.2 - 1.6 mg/dL Potassium Chloride (Kcl 40 Meq Premix Inj) 40 meq in 100 mls @ 25 mls/hr IV.SIG Q2H PRN PRN Reason: For Potassium 2.8 - 3.2 mEq/L Potassium Chloride (Kcl 20 Meq Premix Inj) 20 meq in 100 mls @ 50 mls/hr IV.SIG Q2H PRN PRN Reason: For Potassium 3.3 - 3.5 mEq/L Potassium Chloride (Kcl 40 Meq Premix Inj) 40 meq in 100 mls @ 25 mls/hr IV.SIG UNSCH PRN PRN Reason: For Potassium 3.3 - 3.5 mEq/L Potassium Chloride (Kcl 20 Meq Premix Inj) 20 meq in 100 mls @ 50 mls/hr IV.SIG Q2H PRN PRN Reason: For Potassium 2.8 - 3.2 mEq/L Potassium Phosphate 30 mmol/ (Sodium Chloride) 260 mls @ 42 mls/hr IV.SIG UNSCH PRN PRN Reason: SEE LABEL COMMENTS Sodium Phosphate 30 mmol/ (Sodium Chloride) 260 mls @ 42 mls/hr IV.SIG UNSCH PRN PRN Reason: For Phosphorus < 2.5 mg/dL Magnesium Oxide (Mag-Ox) 800 mg PO UNSCH PRN PRN Reason: For Magnesium 1.2 - 1.6 mg/dL Potassium Bicarb/Potassium Chloride (K-Lyte Cl Eff) 50 meq PO UNSCH PRN PRN Reason: For Potassium 3.3 - 3.5 mEq/L Potassium Phosphate (K-Phos Original) 2,000 mg PO Q4H PRN PRN Reason: Phosphorus Less Than 2.5 mg/dL Potassium Phosphate (K-Phos Original) 2,000 mg PO UNSCH PRN PRN Reason: SEE LABEL COMMENTS Terbutaline Sulfate (Brethine Inj) 1 mg SQ ONCE PRN PRN Reason: Extravasation Allergies Allergy/AdvReac Type Severity Reaction Status Date / Time cephalexin Allergy Severe RASH,SWELLI Verified 07/13/18 17:57 NG Fish Containing Products Allergy Severe SWELLING Verified 07/13/18 17:57 IN THROAT, SOB ketorolac Allergy Severe RASH Verified 07/13/18 17:57 penicillin G Allergy Severe RASH,SWELLI Verified 07/13/18 17:57 NG prochlorperazine Allergy Mild DYSTONIC Verified 07/13/18 17:57 REACTION promethazine Allergy Mild DYSTONIC Verified 07/13/18 17:57 REACTION Home Medications Medication Instructions Recorded Confirmed Type levothyroxine [Synthroid] 112 mcg PO DAILY 05/08/18 07/24/18 History magnesium 100 mg PO QID 05/08/18 07/24/18 History pantoprazole [Protonix] 40 mg PO DAILY 05/08/18 07/24/18 History potassium chloride 40 meq PO TID 05/08/18 07/24/18 History potassium phosphate, monobasic 1,000 mg PO TID 05/08/18 07/24/18 History [K-Phos Original] prednisone 30 mg PO DAILY 05/08/18 07/24/18 History spironolactone 25 mg PO DAILY 05/08/18 07/24/18 History Results - Labs CBC & Chem 7: 08/03/18 08:20 08/02/18 23:35 Labs: Short CBC 08/02/18 08/02/18 08/02/18 Range/Units 23:35 23:35 23:35 WBC 10.1 (4.0-11.0) th/mm3 RBC 3.36 L (4.00-5.30) mil/mm3 Hgb 9.6 L (11.6-15.3) gm/dL Hct 29.8 L (35.0-46.0) % MCV 88.6 (80.0-100.0) fL MCH 28.5 (27.0-34.0) pg MCHC 32.1 (32.0-36.0) % RDW 14.4 (11.6-17.2) % Plt Count 223 D (150-450) th/mm3 MPV 8.1 (7.0-11.0) fL Neut % (Auto) 55.6 (16.0-70.0) % Lymph % (Auto) 28.8 (9.0-44.0) % [place] % (Auto) 9.2 H (0.0-8.0) % Eos % (Auto) 5.6 H (0.0-4.0) % Baso % (Auto) 0.8 (0.0-2.0) % Neut # (Auto) 5.6 (1.8-7.7) th/mm3 Lymph # (Auto) 2.9 (1.0-4.8) th/mm3 [place] # (Auto) 0.9 (0.0-0.9) th/mm3 Eos # (Auto) 0.6 H (0.0-0.4) th/mm3 Baso # (Auto) 0.1 (0.0-0.2) th/mm3 WBC Differential . Differential Comment Auto diff final PT 10.9 (9.8-11.6) sec INR 1.1 Ratio APTT 26.0 (24.3-30.1) sec Sodium 140 (136-145) meq/L Potassium 3.3 L (3.5-5.1) meq/L Chloride 104 (98-107) meq/L Carbon Dioxide 22.5 (21.0-32.0) meq/L Anion Gap 14 (5-15) meq/L BUN 18 (7-18) mg/dL Creatinine 2.55 H (0.50-1.00) mg/dL Estimated GFR 21 L (>89) mL/min Random Glucose 162 H (74-106) mg/dL Calcium 8.0 L (8.5-10.1) mg/dL Magnesium 1.8 (1.5-2.5) mg/dL Total Bilirubin 0.4 (0.2-1.0) mg/dL AST 15 (15-37) U/L ALT 13 (10-53) U/L Alkaline Phosphatase 59 (45-117) U/L Total Creatine Kinase 58 (26-192) U/L Troponin I Less than 0.02 L (0.02-0.05) ng/mL Total Protein 6.1 L (6.4-8.2) g/dL Albumin 3.2 L (3.4-5.0) g/dL BMP 08/02/18 23:35 Sodium 140 Potassium 3.3 L Chloride 104 Carbon Dioxide 22.5 BUN 18 Creatinine 2.55 H Calcium 8.0 L Cardiac Enzymes 08/02/18 Range/Units 23:35 Total Creatine Kinase 58 (26-192) U/L Troponin I Less than 0.02 L (0.02-0.05) ng/mL Liver Function 08/02/18 Range/Units 23:35 Total Bilirubin 0.4 (0.2-1.0) mg/dL AST 15 (15-37) U/L ALT 13 (10-53) U/L Alkaline Phosphatase 59 (45-117) U/L Albumin 3.2 L (3.4-5.0) g/dL - Imaging Impressions Chest X-Ray 08/02/18 23:22 CONCLUSION: No acute cardiopulmonary disease demonstrated. Exam Vital signs: Vital Signs 08/02/18 23:18 08/03/18 00:13 08/03/18 00:23 Pulse Rate 69 70 78 Respiratory Rate 22 20 Blood Pressure 156/103 H 78/35 L 83/44 L Pulse Oximetry 100 98 100 08/03/18 00:43 08/03/18 01:05 08/03/18 02:48 Pulse Rate 69 73 83 Respiratory Rate 20 20 22 Blood Pressure 90/51 L 100/49 L 78/45 L Pulse Oximetry 97 98 97 08/03/18 03:24 08/03/18 04:10 Pulse Rate 70 78 Respiratory Rate Blood Pressure 93/58 L 100/52 L Pulse Oximetry 97 99 Intake & Output 08/02/18 08/02/18 08/03/18 06:59 18:59 06:59 Weight 86.183 kg Narrative: GENERAL: Chronically ill-appearing overweight female who is sitting up in ED stretcher. SKIN: Warm and dry. HEAD: Atraumatic. Normocephalic. EYES: Pupils equal and round. No scleral icterus. No injection or drainage. ENT: No nasal bleeding or discharge. Mucous membranes pink and moist. NECK: Trachea midline. No JVD. No meningismus CARDIOVASCULAR: regular, 1/6 systolic murmur lsb. CHEST: There is an anterior incision from pacemaker placement that is healed. Patient reported purulent exudate though I do not express any currently. She reports tenderness. There is no erythema or warmth. There is a scar on lateral chest wall that is healed. The scar tissue is tender but there is no erythema or exudate. RESPIRATORY: Tachypneic but no accessory muscle use. Clear to auscultation bilaterally. GASTROINTESTINAL: Abdomen soft, non-tender, nondistended. Bowel sounds present peer MUSCULOSKELETAL: Extremities without clubbing, cyanosis. 1+ bilateral lower extremity edema.. NEUROLOGICAL: Awake and alert. No obvious cranial nerve deficits. Motor grossly within normal limits. Normal speech. Septic Shock Reassessment Septic shock perfusion: reassessment completed Caprini VTE Risk Assessment Caprini VTE Risk Assessment: Moderate/High Risk (score >= 2) Caprini Risk Assessment Model: Point Value = 1 Point Value = 2 Point Value = 3 Point Value = 5 Age 41-60 Minor surgery BMI > 25 kg/m2 Swollen legs Varicose veins or History of unexplained or recurrent spontaneous Oral contraceptives or hormone replacement Sepsis (< 1 month) Serious lung disease, including pneumonia (< 1 month) Abnormal pulmonary function Acute myocardial infarction Congestive heart failure (< 1 month) History of inflammatory bowel disease Medical patient at bed rest Age 61-74 Arthroscopic surgery Major open surgery (> 45 min) Laparoscopic surgery (> 45 min) Malignancy Confined to bed (> 72 hours) Immobilizing plaster cast Central venous access Age >= 75 History of VTE Family history of VTE Factor V Leiden Prothrombin [id number] Lupus anticoagulant Anticardiolipin antibodies Elevated serum homocysteine Heparin-induced thrombocytopenia Other congenital or acquired thrombophilia Stroke (< 1 month) Elective arthroplasty Hip, pelvis, or leg fracture Acute spinal cord injury (< 1 month) Prophylaxis Regimen: Total Risk Factor Score Risk Level Prophylaxis Regimen 0-1 Low Early ambulation 2 Moderate Order ONE of the following: *Sequential Compression Device (SCD) *Heparin 5000 units SQ BID 3-4 Higher Order ONE of the following medications: *Heparin 5000 units SQ TID *Enoxaparin/Lovenox 40 mg SQ daily (WT < 150 kg, CrCl > 30 mL/min) *Enoxaparin/Lovenox 30 mg SQ daily (WT < 150 kg, CrCl > 10-29 mL/min) *Enoxaparin/Lovenox 30 mg SQ BID (WT < 150 kg, CrCl > 30 mL/min) AND/OR *Sequential Compression Device (SCD) 5 or more Highest Order ONE of the following medications: *Heparin 5000 units SQ TID (Preferred with Epidurals) *Enoxaparin/Lovenox 40 mg SQ daily (WT < 150 kg, CrCl > 30 mL/min) *Enoxaparin/Lovenox 30 mg SQ daily (WT < 150 kg, CrCl > 10-29 mL/min) *Enoxaparin/Lovenox 30 mg SQ BID (WT < 150 kg, CrCl > 30 mL/min) AND *Sequential Compression Device (SCD) Assessment and Plan - Problem List (1) Hypotension Code(s): I95.9 - Hypotension, unspecified Status: Acute (2) CKD (chronic kidney disease) stage 3, GFR 30-59 ml/min Code(s): N18.3 - Chronic kidney disease, stage 3 (moderate) Status: Chronic (3) Symptomatic bradycardia Code(s): R00.1 - Bradycardia, unspecified Status: Acute (4) Acute hypokalemia Code(s): E87.6 - Hypokalemia Status: Acute (5) Chronic pain Code(s): G89.29 - Other chronic pain Status: Chronic (6) Medical non-compliance Code(s): Z91.19 - Patient's noncompliance with other medical treatment and regimen Status: Acute - Assessment and Plan Plan: NEURO: Chronic pain Continue morphine 15 mg p.o. every 8 hours. Valium 10 mg p.o. every 8 hours, hold if hypotensive despite max dose of dopamine RESP: Nasal cannula wean as tolerated CV: Symptomatic bradycardia with hypotension. Brugada syndrome ICD in place. Prior ICD pocket infection in December 2017 and February 2018. Most recently replaced 06/27/[address] Cervantes. Per device rep she did not follow- up for scheduled outpatient interrogation following device placement. Now interrogation shows pacemaker intermittently capturing per [employer] rep. Dopamine titrate to mean arterial pressure greater than 65 and pulse greater than 60. Backup transcutaneous pacing for rate less than 50. Dr. Nowak discussed with cardiology who provided the above recommendations. Consult Dr. Cervantes to evaluate due to intermittent capture pacer. Hold spironolactone 25 mg p.o. daily in view of hypotension. Receiving 1 L normal saline bolus. Continue 0.9 NaCl at 125 mL/h. Essential hyper tension. Hold Norvasc GI: Crohn's disease N.p.o. States she is scheduled to follow-up with [facility] gastroenterology in the end of August COMPUTATIONAL LINGUIST: Menorrhagia, patient reports is a chronic problem. Hasn't followed up with gynecology in over a year. Endometriosis Beta hCG is negative. Hemoglobin is stable and if remains so can follow-up as an outpatient with gynecology. FEN/RENAL: Chronic kidney disease stage III Patient states she has not had renal biopsy. She has been followed by nephrology at [facility]. Hypokalemia Received potassium 40 mEq p.o. monitor and replace electrolytes as indicated. ID: History of ICD pocket infection most recently with MRSA February 2018. She has undergone device removal on 2 prior occasions. Most recently was removed in February 2018 with wound VAC placement. Device replaced 06/27/18. She reports fever 102.7, however she is afebrile here. Will obtain blood cultures. Provide empiric coverage with vancomycin and aztreonam as she has history of penicillin and Keflex allergy. RHEUM: Systemic lupus erythematosus On chronic steroids On chronic prednisone 30 mg p.o. daily for >2 years. In view of shock will place on hydrocortisone 100 mill grams IV every 8 hours. Hold prednisone Scheduled to follow-up with [facility] rheumatology end of August. HEME: Chronic anemia Follow-up hemoglobin given vaginal bleeding. ENDO: Hypothyroidism Continue Synthroid 112 mcg p.o. daily. Check TSH. PROPH: SCDs for DVT prophylaxis. Help pharmacologic DVT prophylaxis at this time due to vaginal bleeding however if hemoglobin remains stable she will need to be on heparin subcu. Protonix 40 mg p.o. daily for stress ulcer prophylaxis. ACCESS: Dopamine currently infusing through left EJ. Need central venous line which will be placed by oncoming local government legislator. Patient is critically ill with hypotension and bradycardia. Requires admission to ICU for close hemodynamic monitoring, vasopressor and chronotropic therapy, EP cardiology consultation. She is at high risk for further deterioration. Discussed with Dr. Jarrett. Discussed with ED RN and BOXING INSTRUCTOR. Full code Critical care time 60 minutes exclusive of separately billable procedures.
[2018-08-03] MEDS ORDERED: Vancomycin Consult Pharmacy OTHER PRN (04:49)
[2018-08-03] MEDS ORDERED: Bisacodyl 10 MG Supp RECTAL PRN (04:51)
[2018-08-03] MEDS ORDERED: Acetaminophen 325 MG Tablet PO PRN (04:51)
[2018-08-03] MEDS ORDERED: Atropine Inj 1 MG/10 ML Syringe IV.PUSH ONE ×2 (05:00→16:07)
[2018-08-03] MEDS ORDERED: Sodium Bicarbonate 8.4% Inj 50 MEQ/50 ML Syringe IV.CONT ONE ×2 (05:00→16:07)
[2018-08-03] MEDS ORDERED: Calcium Chloride Inj 1 GM/10 ML Syringe IV.CONT ONE (05:00)
[2018-08-03] MEDS ORDERED: DOPamine 400 MG/250 ML Premix 400 MG/250 ML BAG IV.CONT ONE ×3 (05:01→13:52)
[2018-08-03 05:18] LABS: Lipase 52 U/L (73-393)
[2018-08-03 05:40] LABS: Bacteria,Urine Few /hpf; Bilirubin,Urine Negative (Negative); Clarity,Urine Turbid (Clear); Color,Urine Red (Yellw/Straw); Glucose,Urine (UA) 50 mg/dL (Negative); Hyaline Casts,Urine 157 /lpf (0-3); Leukocyte Esterase,Urine Negative (Negative); Mucus,Urine Many /lpf (Occasional); Nitrite,Urine Negative (Negative); Specific Gravity,Urine 1.022 (1.002-1.035); Squamous Epithelial Cell,Urine 20 /hpf (0-5); Transitional Epi Cells,Urine 1 /hpf
[2018-08-03] MEDS: Hydrocortisone Sod Succinate 100 MG Vial IV.PUSH SCH ×3 (05:59→21:27)
[2018-08-03] MEDS ORDERED: Vancomycin Inj 1,750 MG in Sodium Chlor 0.9% Inj 500 ML IV.SIG ONE (06:00)
[2018-08-03] MEDS: Morphine Sulfate 15 MG IR Tablet PO PRN (06:02)
[2018-08-03] MEDS ORDERED: Morphine Sulfate Inj 2 MG/ML Vial ONE ×2 (09:20→09:34)
--- NOTE | 2018-08-03 09:45 | P.PNCC ---
Subjective Subjective Remarks/Hospital Course: 42-year-old female with past medical history of systemic lupus erythematosus, Crohn's disease, hypothyroidism, endometriosis, gastroparesis, chronic kidney disease stage III, interstitial cystitis, Brugada syndrome with ICD replaced 06/27/[address] Cervantes. 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 She states she was taking a shower this evening and felt weak and presyncopal. She was transported by [facility] with heart rate 30s to 40s. Upon arrival she had ventricular paced rhythm at a rate of 40. Her blood pressure was 78/35. Transcutaneous pacer was placed with backup rate of 60. She was started on dopamine which has been titrated up to 16 mcg/kg/min with heart rate in the 70s-80s and blood pressure 93/51. Her pacemaker was interrogated and was noted to be intermittently capturing. I do not appreciate damage to lead or definite migration on chest x-ray though image is rotated c/ w prior. Dr. Nowak discussed with Dr. English who recommended Dopamine with backup transcutaneous pacing and consultation with Dr. Cervantes in the morning. Patient states that she began feeling weak about a week and a half ago when her Norvasc was increased. It was initially increased to 10 mg p.o. daily. Was recently admitted 07/24-07/25 and at that time was told to take Norvasc 5 mill grams p.o. twice daily which she states she has been taking as prescribed. She denies chest pain or shortness of breath. She became nauseated and vomited small amount of emesis, nonbloody nonbilious after arrival to the ED. She states she has some tenderness of the chest wall, noted some drainage 2 days ago from anterior incision but I do not see any now. She states yesterday she had a temp 102.7. She is afebrile in the ED without leukocytosis. She does have history of pocket infection in december 2017 and 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 and then replaced in [facility] (original device placed 10/03/17). She had additional chest wall infection 02/2018 with MRSA resulting in device removal and wound vac placement. ICD was replaced 06/27/[address] Cervantes. She states she has a prior history of menorrhagia and has had vaginal bleeding for about a month. It has been heavier over the last couple of days changing 1 pad per hour. Her hemoglobin is 9.6, previously 9.7 on 07/25. SUBJ 08/03: Patient continues to be external pacer dependent. Currently on 20mcg/kg/min of dopamine. When the pacer rate is decreased patient's heart rate decreases to mid 20s and she is symptomatic. I have emergently placed a right IJ central line to administer vasoactive medication. Add Isuprel. Discussed personally with Dr. Helen PEREZ. I reviewed the previous report from [facility] in the ED the rate was reduced to VVI 30 as the patient complained about pain with pacing. We have contacted [facility] again to increase the backup rate to 60 Objective Vital Signs / I&O: Vital Signs 08/02/18 23:18 08/03/18 00:13 08/03/18 00:23 Temperature Pulse Rate 69 70 78 Respiratory Rate 22 20 Blood Pressure 156/103 H 78/35 L 83/44 L Pulse Oximetry 100 98 100 08/03/18 00:43 08/03/18 01:05 08/03/18 02:48 Temperature Pulse Rate 69 73 83 Respiratory Rate 20 20 22 Blood Pressure 90/51 L 100/49 L 78/45 L Pulse Oximetry 97 98 97 08/03/18 03:24 08/03/18 04:10 08/03/18 04:22 Temperature Pulse Rate 70 78 82 Respiratory Rate Blood Pressure 93/58 L 100/52 L 135/53 L Pulse Oximetry 97 99 99 08/03/18 04:42 08/03/18 05:19 08/03/18 05:23 Temperature 98.7 F 98.9 F Pulse Rate 46 L Respiratory Rate 22 Blood Pressure 79/43 L Pulse Oximetry 91 L 96 08/03/18 05:28 08/03/18 05:32 08/03/18 05:41 Temperature Pulse Rate 59 L 59 L 48 L Respiratory Rate 34 H 27 H 26 H Blood Pressure 58/34 L 92/54 L 94/53 L Pulse Oximetry 86 L 93 L 91 L 08/03/18 05:50 08/03/18 06:00 08/03/18 06:10 Temperature Pulse Rate 61 59 L 53 L Respiratory Rate 29 H 36 H 24 Blood Pressure 95/51 L 98/54 L 94/51 L Pulse Oximetry 92 L 90 L 92 L 08/03/18 06:24 08/03/18 06:41 08/03/18 06:51 Temperature Pulse Rate 61 50 L 54 L Respiratory Rate 29 H 10 L 19 Blood Pressure 136/84 99/51 L 89/51 L Pulse Oximetry 95 90 L 94 L 08/03/18 07:00 08/03/18 07:13 08/03/18 07:16 Temperature Pulse Rate 52 L 63 62 Respiratory Rate 24 19 20 Blood Pressure 94/48 L 92/51 L Pulse Oximetry 92 L 87 L 93 L 08/03/18 07:31 08/03/18 08:13 Temperature Pulse Rate 61 Respiratory Rate 17 Blood Pressure 94/49 L Pulse Oximetry 93 L 95 Intake & Output 08/02/18 08/03/18 08/03/18 18:59 06:59 18:59 Weight 86.183 kg Result Diagrams: 08/03/18 08:20 08/02/18 23:35 Objective Remarks: GENERAL: Chronically ill-appearing overweight female who is lying in ICU bed, anxious nauseous SKIN: Warm and dry. HEAD: Atraumatic. Normocephalic. EYES: Pupils equal and round. No scleral icterus. No injection or drainage. ENT: No nasal bleeding or discharge. Mucous membranes pink and moist. NECK: Trachea midline. No JVD. No meningismus CARDIOVASCULAR: Completely dependent on transcutaneous pacer, 1/6 systolic murmur lsb. Baseline rhythm chronic A. fib with ventricular rate mid 20s when external pacemaker is placed on backup mode pacemaker rate is reduced. I do not see pacer spikes from her pacemaker CHEST: There is an anterior incision from pacemaker placement that is healed. No purulence. There is no erythema or warmth. There is a scar on lateral chest wall that is healed. The scar tissue is tender but there is no erythema or exudate. RESPIRATORY: Tachypneic but no accessory muscle use. Clear to auscultation bilaterally. GASTROINTESTINAL: Abdomen soft, non-tender, nondistended. Bowel sounds present peer MUSCULOSKELETAL: 1+ bilateral lower extremity edema.. NEUROLOGICAL: Awake and alert, nauseous. No obvious cranial nerve deficits. Motor grossly within normal limits. Normal speech. Patient does complain of lightheadedness when the heart rate is low Assessment and Plan - Problem List (1) Hypotension Code(s): I95.9 - Hypotension, unspecified Status: Acute (2) CKD (chronic kidney disease) stage 3, GFR 30-59 ml/min Code(s): N18.3 - Chronic kidney disease, stage 3 (moderate) Status: Chronic (3) Symptomatic bradycardia Code(s): R00.1 - Bradycardia, unspecified Status: Acute (4) Acute hypokalemia Code(s): E87.6 - Hypokalemia Status: Acute (5) Chronic pain Code(s): G89.29 - Other chronic pain Status: Chronic (6) Medical non-compliance Code(s): Z91.19 - Patient's noncompliance with other medical treatment and regimen Status: Acute - Assessment and Plan Plan: NEURO: Chronic pain On morphine 15 mg p.o. every 8 hours-changed to IV as patient is NPO Valium 10 mg p.o. every 8 hours, hold RESP: Nasal cannula wean as tolerated CV: Symptomatic bradycardia with hypotension. AICD malfunction/probable dislodged pacemaker lead Lactic acidosis Brugada syndrome ICD in place. Increase dopamine to 20 mcg/kg/min, start Isuprel Externally paced at 60 bpm When external pacer is placed on backboard, I do not see any pacemaker spikes -Highly likely there is dislodgment of the pacemaker leads. Discussed with Dr. 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 Most recently replaced 06/27/[address] Cervantes. Per device rep she did not follow-up for scheduled outpatient interrogation following device placement. Now interrogation shows pacemaker intermittently capturing per [employer] rep. Dr. Nowak discussed with cardiology who provided the above recommendations. Hold spironolactone 25 mg p.o. daily in view of hypotension. Receiving 1 L normal saline bolus, give additional 1 L bolus. Continue 0.9 NaCl at 125 mL/h. Essential hyper tension. Hold Norvasc GI: Crohn's disease Strict N.p.o. 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 Hasn't followed up with gynecology in over a year. Endometriosis Beta hCG is negative. Hemoglobin is stable, can follow-up as an outpatient with gynecology. FEN/RENAL: Chronic kidney disease stage III Patient states she has not had renal biopsy. She has been followed by nephrology at [facility]. Hypokalemia Received potassium 40 mEq p.o. monitor and replace electrolytes as indicated. ID: History of ICD pocket infection most recently with MRSA February 2018. She has undergone device removal on 2 prior occasions. Most recently was removed in February 2018 with wound VAC placement. Device replaced 06/27/18. She reports fever 102.7, however she is afebrile here. Will obtain blood cultures. Provide empiric coverage with vancomycin and aztreonam as she has history of penicillin and Keflex allergy. RHEUM: Systemic lupus erythematosus On chronic steroids On chronic prednisone 30 mg p.o. daily for >2 years. In view of shock will place on hydrocortisone 100 mill grams IV every 8 hours. Hold prednisone Scheduled to follow-up with [facility] rheumatology end of August. HEME: Chronic anemia Follow-up hemoglobin given vaginal bleeding. ENDO: Hypothyroidism Continue Synthroid 112 mcg p.o. daily. Normal TSH. PROPH: SCDs for DVT prophylaxis. Hold pharmacologic DVT prophylaxis at this time due to vaginal bleeding however if hemoglobin remains stable she will need to be on heparin subcu after AICD lead revision. Protonix 40 mg p.o. daily for stress ulcer prophylaxis. ACCESS: New right IJ central line placed Patient is critically ill with hypotension and bradycardia. Requires admission to ICU for close hemodynamic monitoring, vasopressor and chronotropic therapy, EP cardiology consultation. She is at high risk for further deterioration and . Discussed with Dr. Cervantes. Discussed with ED RN and LUMBER GRADER. Full code Additional critical care time 50 minutes exclusive of separately billable procedures.
--- NOTE | 2018-08-03 09:49 | P.PCN ---
Date of procedure: 08/03/18 Pre-op diagnosis: Hypotension, shock Post-op diagnosis: same Procedure: Ultrasound-guided right IJ central line US guided central line Central line checklist completed, timeout completed. I wore a surgical cap, mask with protective eyewear, full gown and sterile gloves throughout the procedure. RIJ region was prepped using chlorhexidine scrub and draped in sterile fashion. The right internal jugular vein was identified using the ultrasound. Anesthesia was achieved over the vein using 1% lidocaine. The introducer needle was inserted into the right IJ under direct ultrasound visualization. Venous blood was withdrawn. The syringe was removed and a guidewire was advanced into the introducer needle. A small incision was made at the skin surface with a scalpel and the introducer needle was exchanged for a dilator over the guidewire. After appropriate dilation was obtained, the dilator was exchanged over the wire for a triple lumen, 7F, antibiotic coated central venous catheter. The wire was removed and the catheter was sutured in place at 18 cm. A sterile central line dressing was placed over the catheter at the insertion site. The patient tolerated the procedure without any hemodynamic compromise. At time of procedure completion, all ports aspirated and flushed properly. Post-procedure chest x-ray is pending at this time. Anesthesia: local Surgeon: Pedro Torres Estimated blood loss (mL): 2 Pathology: none sent Condition: critical Disposition: ICU
--- NOTE | 2018-08-03 10:31 | XR ---
EXAM DATE: 08/03/2018 9:45 AM EDT AGE/SEX: 42 years / Female INDICATIONS: Post central line placement CLINICAL DATA: This is the patient's initial encounter. Patient reports that signs and symptoms have been present for 1 day and indicates a pain score of Nonresponsive. MEDICAL/SURGICAL HISTORY: Hypertension. . external pacemaker today COMPARISON: [facility], CHEST 1V SINGLE AP, 08/02/2018. . FINDINGS: Right IJ central line with tip in the proximal right atrium. No significant pneumothorax. Stable sing le lead pacemaker. Cardiomegaly mediastinal contours are within normal limits. Remainder of exam is u nchanged. CONCLUSION: 1. Right IJ central line tip in the right atrium without pneumothorax. Electronically signed by: Gil Valente MD 08/03/2018 10:30 AM EDT
[2018-08-03] MEDS ORDERED: Etomidate Inj 40 MG/20 ML Vial IV.PUSH ONE (13:16)
[2018-08-03] MEDS ORDERED: Midazolam Inj 5 MG/ML 1 ML Vial ONE (13:17)
[2018-08-03 13:58] LABS: ABG Base Excess -20.4 mmol/L (-2-2); ABG PCO2 38 mmHg (38-42); ABG PO2 83 mmHG (61-120)
[2018-08-03] MEDS ORDERED: DOBUTamine 250 MG/250 ML Premx 250 MG/250 ML BAG IV.CONT ONE (14:06)
--- NOTE | 2018-08-03 14:36 | XR ---
EXAM DATE: 08/03/2018 1:53 PM EDT AGE/SEX: 42 years / Female INDICATIONS: Status post ET tube placement. CLINICAL DATA: This is the patient's initial encounter. Patient reports that signs and symptoms have been present for 1 day and indicates a pain score of Nonresponsive. MEDICAL/SURGICAL HISTORY: Hypertension. Pacemaker. COMPARISON: [facility] [place], [place], CHEST 1V SINGLE AP, 08/03/2018. . FINDINGS: ETT approximately 1 cm above the farhana. Right IJ central line with tip in the right atrium. Lungs ar e hypoaerated with minimal airspace disease at the left lung base. Cardiomegaly mediastinal contours are stable. Remainder of exam is unchanged. CONCLUSION: 1. ETT 1 cm above the farhana. Right IJ central line in the right atrium. 2. Mild left lung base airspace disease, likely atelectasis. Electronically signed by: Gil Valente MD 08/03/2018 2:35 PM EDT
[2018-08-03] MEDS ORDERED: Lidocaine 2% Inj 50 ML Vial ONE (14:44)
--- NOTE | 2018-08-03 15:01 | P.PCN ---
Date of procedure: 08/03/18 Pre-op diagnosis: Seizure, Altered mentasl status Post-op diagnosis: same Procedure: PROCEDURE NOTE PROCEDURE: Endotracheal intubation INDICATION: Acute respiratory failure DETAILS OF PROCEDURE: The patient was appropriately positioned, encephalopathy postictal and due to hypotension. Patient was bagged with bag valve mass and 100% oxygen. Direct laryngoscopy was performed with a 4 Martinez laryngoscope blade and a grade I Cormack-Lehane view was obtained. On single attempt a size 7.5 endotracheal tube was visualized passing through the cords. Correct placement was confirmed with direct visualization of ET tube passing through the vocal cords, and CO2 detector. Breath sounds were equal bilaterally. No sounds auscultated over the stomach. The endotracheal tube was secured at 23 cm at the lips. CXr is pending Surgeon: Pedro Torres Estimated blood loss (mL): 0 Pathology: none sent Condition: critical Disposition: ICU
[2018-08-03 15:10] LABS: ABG Base Excess -14.3 mmol/L (-2-2); ABG PCO2 62 mmHg (38-42); ABG PO2 112 mmHG (61-120)
--- NOTE | 2018-08-03 15:13 | P.PCN ---
Date of procedure: 08/03/18 Pre-op diagnosis: Cardiogenic shock Post-op diagnosis: same Procedure: Right radial arterial line placement Emergency procedure due to severe cardiogenic shock. I wore a surgical cap, mask with protective eyewear, and sterile gloves throughout the procedure. Right radial region was prepped using chlorhexidine scrub and draped in sterile fashion. The introducer needle was inserted into the radial artery and arterial blood withdrawn. A guidewire was advanced into the introducer needle. The needle was removed and a single lumen 20-gauge 16 cm arterial catheter was placed and the guidewire was removed. A good arterial waveform was obtained. A sterile central line dressing was placed over the catheter at the insertion site. The patient tolerated the procedure without any hemodynamic compromise. Anesthesia: local Surgeon: Pedro Torres Estimated blood loss (mL): 1 Pathology: none sent Condition: critical Disposition: ICU
[2018-08-03 15:57] LABS: ABG Base Excess -13.9 mmol/L (-2-2); ABG PCO2 41 mmHg (38-42); ABG PO2 75 mmHG (61-120)
--- NOTE | 2018-08-03 15:57 | ECG ---
Date Performed: 08/02/2018 Time Performed: 23:25:47 PTAGE: 42 years EKG: ELECTRONIC VENTRICULAR PACEMAKER ABNORMAL RHYTHM ECG PREVIOUS TRACING : 07/24/2018 @17.03 Compared to previous tracing, the patient developed a slow paced ventricular rhythm. The previously noted Sinus rhythm is no longer evident and i do not actually see sinus node activity. The underlying rhythm here canno t be determined. This is a marked serial change and metabolic disease and primary cardiac disease ifrah uld be excluded clinically. DOCTOR: Polly Noland Interpretating Date/Time 08/03/2018 15:55:40
--- NOTE | 2018-08-03 15:59 | ECG ---
Date Performed: 08/03/2018 Time Performed: 10:58:29 PTAGE: 42 years EKG: Paced Electric Activity without convincing ventricular capture. If there is ventricular cap ture, it is intermittent. There is some underlying electric activity that may be intrinsic. EKG is mo st consistent with an external pacemaker and intermittent capture. ABNORMAL ECG PREVIOUS TRACING : 08/02/2018 23.25 Compared to previous tracing, the paced ventricular rhythm with what appears to be an implanted pacind device is no longer evident. DOCTOR: Polly Noland Interpretating Date/Time 08/03/2018 15:58:32
[2018-08-03] MEDS ORDERED: Sodium Chlor 0.9% Inj 250 ML ONE (16:02)
[2018-08-03] MEDS ORDERED: DOPamine 800 MG/500 ML Premix 800 MG/500 ML PLAST..BAG IV.CONT ONE (16:07)
[2018-08-03] MEDS ORDERED: Albumin Human 5% Inj 250 ML IV.SIG ONE (16:46)
[2018-08-03] MEDS ORDERED: Albumin Human 25% Inj 100 ML IV.SIG ONE (16:49)
[2018-08-03 16:53] LABS: ABG Base Excess -15.2 mmol/L (-2-2); ABG PCO2 31 mmHg (38-42); ABG PO2 89 mmHG (61-120)
--- NOTE | 2018-08-03 17:18 | CATHPROC ---
Patient Name: Brisa Hernandez Study #: [id number] Initial MD: Tamara Cervantes Date of : 1975 Study Date: 08/03/2018 Cardiac Catheterization Report 08/03/2018 5:18:30 PM Financial #: [id number] 1 of 10 Patient Name: Brisa Hernandez Study #: [id number] Initial MD: Tamara Cervantes Date of : 1975 Study Date: 08/03/2018 Entire Case Report Patient Information Patient Name Brisa Hernandez Date of 1975 Age 42 years Financial # [id number] Gender F AlternateID Lab Number 2 Room Number 511 Height (in) 69.5 Height (cm) 176.5 BSA 2.03 Weight (lbs) 189.4 Weight (kg) 86.1 Patient Address/Phone Number Home Address [facility] Home Phone Number [address] [place] [address] Study Information Study Number Admission Scheduled Start Study Start [id number] Aug 03 2018 3:38AM 08/03/2018 Aug 03 2018 2:38PM [place] [facility] Cardiac Pacer/ICD Admit Source Facility Department Other [facility] [employer] Specialist Physician and Clinical Staff Initial Tamara Robin Foundation Drill Operator Helper Lissette Alaniz,MARIA ISABEL Foundation Drill Operator Helper Bethany Mendieta,WATERSHED COORDINATOR TECH2 Other Hipolito Henderson RN Other Anesthesia, MAGISTRATE Other Eliseo, Rocio,BENZENE OPERATOR TECH2 Recorder Mandie Katz RN Scrub Caitlin Rodriguez RCIS Procedures Performed Procedure Lead Insertion Lead Revision 08/03/2018 5:18:30 PM Financial #: [id number] 2 of 10 Patient Name: Brisa Hernandez Study #: [id number] Initial MD: Tamara Cervantes Date of : 1975 Study Date: 08/03/2018 Equipment Time Boomboat Operator Description Size Mfg Part Number Used/Scraped 16:09 BIOTRONIK LEAD, PLEXA PRO-MRI DF 65/15 [id number] Used 15:22 BIOTRONIK LEAD, SOLIA 60 53 PRO MRI * [id number] Used DERMABOND, ADHESIVE SKIN [id number] 15:01 CORDIS/PACER * Used GLUE MINI *[id number] 15:20 [employer] PHONTOBLADE, 7.5" RETRACTED [id number] Used [id number] 15:01 Braingaze BLANKET,WARM AIR CCL * Used *[id number] TP-1103 15:01 [employer]aze SUTURE, STRIP PLUS 1/2" * Used *[id number] 15:01 MEDLINE PACER HUGHES, LIMB * 2530 *[id number] Used [id number] 15:01 MEDLINE PACER PACK, PACER CUSTOM * Used *[id number] 15:44 [employer] PACER SAFE SHEATH, FR7, 13CM FR 7 [id number] Used 15:44 [employer] PACER SAFE SHEATH, FR8, 13CM FR 8 [id number] Used 15:21 Needle Sponge Count 2 22 Used 15:21 Needle Sponge Count 20 200 Used 15:21 Needle Sponge Count 3 3 Used SUTURE, 0 ETHIBOND [CT1] (CX21D), 8pk SUTURE, 2-0 VICRYL [CT1] (FNS329R) SUTURE, 2-0 VICRYL [CT1] (BRT446G) [id number] 14:41 [employer] MEDICAL CATHETER, JSN, QUAD FR 5 Used *[id number] 14:43 ST. HECT[employer] MEDICAL SHEATH, EPS, FR7 FAST CATH FR 7 [id number] Used [facility] PAD, ELECTROSURGICAL 15:01 * [id number] *[id number] Used SURGICAL GROUNDING ORANGE [id number] 15:01 [employer]. / * Used *54480 Equipment Model, Serial, Lot Number and Expiration Data Description Model Number Serial Number Lot Number Expiration Date LEAD, SOLIA 60 53 PRO MRI [id number] 05-05-2020 PHONTOBLADE, 7.5" RETRACTED [id number] 01-30-2019 Insurance Information Insurance Payor State Specific Plan, Private Health Insurance Third Alliance Party Third Alliance Party Number [facility] MDHMO 08/03/2018 5:18:30 PM Financial #: [id number] 3 of 10 Patient Name: Brisa Hernandez Study #: [id number] Initial MD: Tamara Cervantes Date of : 1975 Study Date: 08/03/2018 History: Allergies Allergy Reaction *MDRO Multi-Drug Resistant Cleared - 04/21/16 Organism Compazine DYSTONIC REACTION Keflex RASH,SWELLING Neurontin SEIZURES Penicillin RASH,SWELLING Phenergan DYSTONIC REACTION Reglan DYSTONIC REACTION Seafood SWELLING IN THROAT, SOB Toradol RASH Fish Containing Products SWELLING IN THROAT, SOB prochlorperazine DYSTONIC REACTION cephalexin RASH,SWELLING gabapentin SEIZURES promethazine DYSTONIC REACTION ketorolac RASH penicillin G RASH,SWELLING History: Risk Factors Family History of Previous Heart Failure Premature CAD Yes Yes Labs Hgb (g/dl) Hct (%) RBC (MIL/MM3) WBC (l/cumm) Platelets (thousands) 11.60-17.00 35.00-51.00 4.00-5.90 4.00-11.00 150.00-450.00 10.4 29.8 3.3 10.1 223 Glucose (mg/dl) BUN (mg/dl) Creatinine (mg/dl) BUN:Creatinine (1:x) 74.00-106.00 7.00-18.00 0.50-1.30 10.00-20.00 162 18 2.5 7.2 Na (meq/l) K (meq/l) Cl (meq/l) CO2 (mmol/L) Ca (mg/dl) 136.00-145.00 3.50-5.10 98.00-107.00 21.00-32.00 8.50-10.10 140 3.3 104 22.5 8 PTT (sec) INR (PTT:PT) 24.30-30.10 0.90-1.10 26 1.1 08/03/2018 5:18:30 PM Financial #: [id number] Patient Name: Brisa Hernandez Study #: [id number] Initial MD: Tamara Cervantes Date of : 1975 Study Date: 08/03/20 18 Medication Medication Total Dose (Bolus/Oral) Medication Total Dosage/Unit 2% XYLOCAINE 50 mL Medications (Bolus/Oral) Medication Time Given Dosage/Unit Administered By Reason 2% XYLOCAINE 08/03/2018 3:13:11 PM 50 mL Anesthesia, MAGISTRATE 50 mL 2% XYLOCAINE given in lab by Anesthesia, MAGISTRATE via Subcutaneous. Ordered by Tamara Cervantes. Medication (Drip) Medication Time Given Dosage/Unit Concentration/Unit Diluent (ml) Solution DOPAMINE DRIP 08/03/2018 2:30:21 PM 20 mcg/kg/min 800 mg 250 NaCl .9 STOPPED 20 mcg/kg/min DOPAMINE DRIP STOPPED given in lab by Hipolito Henderson RN. Pump/Drip Flow = 32.29 ml/hr using NaCl .9 with a concentration of 800 mg in 250 ml. Ordered by Tamara Cervantes. EPINEPHRINE DRIP 08/03/2018 2:30:22 PM 30 mcg/min 2 mg 250 NaCl .9 30 mcg/min EPINEPHRINE DRIP given in lab by Hipolito Henderson RN via Peripheral IV. Pump/Drip Flow = 22 5 ml/hr using NaCl .9 with a concentration of 2 mg in 250 ml. Ordered by Tamara Cervantes. Reason: As per physicians verbal order. arrived on from [facility] ISUPREL 08/03/2018 2:30:22 PM 12 mcg/min 1 mg 250 NaCl .9 12 mcg/min ISUPREL given in lab by Hipolito Henderson RN via Peripheral IV. Pump/Drip Flow = 180 ml/hr u sing NaCl .9 with a concentration of 1 mg in 250 ml. Ordered by Tamara Cervantes. Reason: As per physicians verbal order. arrived on from [facility] IV Bolus 08/03/2018 4:17:59 PM 1000 mL (Bolus) D5W .45 NaCl 1000 mL (Bolus) IV Bolus given in lab by Osorio, MAGISTRATE via Peripheral IV. Using D5W .45 NaCl. Orde red by Tamara Cervantes. Reason: As per physicians verbal order. 1st of 2 liters ordered LEVOPHED 08/03/2018 2:30:21 PM 40 mcg/min 4 mg 250 D5W 40 mcg/min LEVOPHED given in lab by Hipolito Henderson, MARIA ISABEL via Central IV. Pump/Drip Flow = 150 ml/hr usi ng D5W with a concentration of 4 mg in 250 ml. Ordered by Tamara Cervantes. Reason: As per physicians verbal order. arrived on from [facility] SODIUM BICARBONATE 08/03/2018 3:12:47 PM 50 meq 50 meq SODIUM BICARBONATE given in lab by Anesthesia, MAGISTRATE in Right Groin via Peripheral IV. Ordered by Tamara Cervantes. Reason: As per physicians verbal order. VANCOMYCIN DRIP 08/03/2018 2:53:11 PM 1 g 1 g VANCOMYCIN DRIP given in lab by Anesthesia, MAGISTRATE via Peripheral IV. Ordered by Tamara Cervantes. Marcie son: As per physicians verbal order. Vasopressin 08/03/2018 3:12:20 PM 0.4 units/min 400 units 100 D5W 0.4 units/min Vasopressin given in lab by Anesthesia, MAGISTRATE in Right Groin via Peripheral IV. Pump/Dri p Flow = 6 ml/hr using D5W with a concentration of 400 units in 100 ml. Ordered by Tamara Cervantes. Reason: As per physicians verbal orde r. 08/03/2018 5:18:30 PM Financial #: [id number] 5 of 10 Patient Name: Brisa Hernandez Study #: [id number] Initial MD: Tamara Cervantes Date of : 1975 Study Date: 08/03/2018 Final Case Assessment Cardiovascular HR NIBP 54 90/32 Edema Present Skin color Skin Mild Pale Dry Cool Circulatory - Right Pulses Dorsalis Pedis d Scale (0,1,2,3,4,d) Circulatory - Left Pulses Dorsalis Pedis d Scale (0,1,2,3,4,d) Circulatory - Lower Extremities Color Lower Right Color Lower Left Pale Pale Neurological State Unresponsive Respiration - General Respiration Rate SpO2 (%) O2 (lpm) (B/min) 14 98 15 Comment: see anesthesia notes for airway management details Respiration - Ventilator Type Intubation Type Alarm Setting ET(oral) On 08/03/2018 5:18:30 PM Financial #: [id number] 6 of 10 Patient Name: Brisa Hernandez Study #: [id number] Initial MD: Tamara Cervantes Date of : 1975 Study Date: 08/03/2018 Initial Case Assessment Cardiovascular HR NIBP 100 105/52 Edema Present Skin color Skin Mild Pale Cool Clammy Circulatory - Right Pulses Dorsalis Pedis d Scale (0,1,2,3,4,d) Circulatory - Left Pulses Dorsalis Pedis d Scale (0,1,2,3,4,d) Circulatory - Lower Extremities Color Lower Right Color Lower Left Pale Pale Neurological State Unresponsive Respiration - General Respiration Rate O2 (lpm) (B/min) 10 15 Comment: see anesthesia notes for airway management details Respiration - Ventilator Type Intubation Type Alarm Setting ET(oral) On Vitals Summary Pain Time HR NIBP SpO2 Resp Temp EtCO2 Apnea Elham Jolly Comment Level 14:42:06 99.0 Chronological Log Time Study Chronological Log 14:30:18 Patient Name, D.O.B, / Armband Verified By R.N. 14:30:18 Anesthesia at bedside. Assumes care of patient. 14:30:19 History and physical on the chart. 08/03/2018 5:18:30 PM Financial #: [id number] Patient Name: Brisa Hernandez Study #: [id number] Initial MD: Tamara Cervantes Date of : 1975 Study Date: 08/03/2018 14:30:19 Anesthesia at bedside. Assumes care of patient. 14:30:19 Patient arrived via Bed emergently. 14:30:20 Patient unconcious or incapacitated, no relative available for anesthesia consent. Pt is in tubated. 40 mcg/min LEVOPHED given in lab by Hipolito Henderson, MARIA ISABEL via Central IV. Pump/Drip Flow = 150 ml/ hr using D5W with a 14:30:21 concentration of 4 mg in 250 ml. Ordered by Tamara Cervantes. Reason: As per physicians verbal order. arrived on from [facility] 20 mcg/kg/min DOPAMINE DRIP STOPPED given in lab by Hipolito Henderson, MARIA ISABEL. Pump/Drip Flow = 32.29 ml/hr using NaCl 14:30:21 .9 with a concentration of 800 mg in 250 ml. Ordered by Tamara Cervantes. 12 mcg/min ISUPREL given in lab by Hipolito Henderson, MARIA ISABEL via Peripheral IV. Pump/Drip Flow = 180 m l/hr using NaCl .9 14:30:22 with a concentration of 1 mg in 250 ml. Ordered by Tamara Cervantes. Reason: As per physicians verbal order. arrived on from [facility] 30 mcg/min EPINEPHRINE DRIP given in lab by Hipolito Henderson, RN via Peripheral IV. Pump/Drip Kyler w = 225 ml/hr using 14:30:22 NaCl .9 with a concentration of 2 mg in 250 ml. Ordered by Tamara Cervantes. Reason: As per ysicians verbal order. arrived on from [facility] 14:30:46 Disposable Defibrillator Pads Placed On Patient. 14:31:22 Megan Prominences Protected 14:32:00 MD arrived. 14:33:56 Right groin prepped with 2% chlorhexidine. 14:35:57 Site draped with sterile towels only. Vascular access was emergently obtained in the Fem Ve in (right). 14:35:58 A SHEATH, EPS, FR7 FAST CATH FR 7 was advanced into the Fem Vein (right) using the Percutan eous technique. 14:36:01 Patient has been NPO for More than 6Hrs per LOG ROPER report 14:36:02 Skin Breakdown- not assessed due to emergent procedure. Nothing obvious on surface areas no mariano. A CATHETER, JSN, QUAD FR 5 was advanced vis Fem Vein (right) and placed in the RVA. Placement w as visually 14:36:20 confirmed under fluoroscopy. 14:36:43 Catheter placement verified under fluoroscopy. 14:42:06 SpO2=99 % Assessment: Initial Case, XF=875 BPM, LBZR=749/52 mmhg, Edema=Mild, Color=Pale, Skin = Cool, Cl gómez Right Pulses: Kristian Ped=d Left Pulses: Kristian Ped=d Lower Right Extremities: Color=Pale 14:46:00 Lower Left Extremities: Color=Pale Neurological: State=Unresponsive Respiration: Resp=10 B/min, O2=15 lpm, Type=ET(Oral), Alarm=On, Comment=see anesthesia notes fo r airway management details 1 g VANCOMYCIN DRIP given in lab by Anesthesia, MAGISTRATE via Peripheral IV. Ordered by Andrew Cervantes Reason: As per 14:53:11 physicians verbal order. 15:09:41 Table restraints applied according to hospital policy 15:10:18 Left Upper Chest Prepped Times Two. 15:11:50 Bovie ground pad applied to:right upper thigh First Sponge And Instrument Count Done by Caitlin Rodriguez RCIS. 15:11:57 Hypo's: 3, Sponges: 20, Bovie/scratch: 2 Sutures: 10, Blades: 1, Instruments: 26, Syveck Patches: ~SYVECK PATCH~ 0.4 units/min Vasopressin given in lab by Anesthesia, MAGISTRATE in Right Groin via Peripheral IV. Pu mp/Drip Flow = 6 ml/hr 15:12:20 using D5W with a concentration of 400 units in 100 ml. Ordered by Tamara Cervantes. Reason: As per physicians verbal order. Time Out. Correct patient, procedure, procedure equipment, site and side verified with physicia n present. Time 15:12:27 concurred by MD, individual staff and MAGISTRATE. 08/03/2018 5:18:30 PM Financial #: [id number] Patient Name: Brisa Hernandez Study #: [id number] Initial MD: Tamara Cervantes Date of : 1975 Study Date: 08/03/2018 Time Out #2 - Consents verified, patient in correct position, all results are labled and displa yed, safety precautions 15:12:29 taken, antibiotics administered. Time out concurred by MD, individual staff and MAGISTRATE in procedu re 50 meq SODIUM BICARBONATE given in lab by Anesthesia, MAGISTRATE in Right Groin via Peripheral IV. Or dered by Helen 15:12:47 Tamara. Reason: As per physicians verbal order. 15:13:00 Case Start 15:13:11 50 mL 2% XYLOCAINE given in lab by Anesthesia, MAGISTRATE via Subcutaneous. Ordered by Danish Cervantes. 15:16:15 Vascular access was obtained in the Subclav. Vein (Lft. 15:16:21 Wire inserted 15:22:09 Pacing via quad cath in progress. 15:23:32 A LEAD, SOLIA 60 53 PRO MRI * was inserted and positioned in the RA. 15:25:37 Lead placement verified under fluoroscopy 15:28:42 The Atrial lead impedance and threshold is being tested. 15:36:29 Repositioning the atrial lead 15:36:44 Lead placement verified under fluoroscopy 15:38:47 The Atrial lead impedance and threshold is being tested. 15:44:50 The Atrial lead was sutured to the fascia. 15:45:41 Incremental Pacing off. 15:46:44 A LEAD, PLEXA PRO-MRI DF 65/15 was inserted and positioned in the RV. 15:48:38 Pacing in progress via quad cath. 15:53:19 Surgical Incision Made. 15:54:25 A pocket was recreated at the Lt. upper chest. 15:56:43 The RV Lead Was Revised. 15:56:44 Lead placement verified under fluoroscopy 15:56:51 The RV lead impedance and threshold being tested. 15:57:00 The RV lead was sutured to the fascia. 15:57:48 The device was connected and replaced into the pocket. 15:58:03 Pocket flushed with antibiotic solution 15:59:46 Pacing via quad cath off. 15:59:59 The pocket is being closed. Second Sponge And Instrument Count Done by Caitlin Rodriguez RCIS. 16:00:02 Hypo's: 3, Sponges: 20, Bovie/scratch: 2 Sutures: 10, Blades: 1, Instruments: ~INSTRU~, Syveck Patches: ~SYVECK PATCH~ verified by 16:06:54 The pocket was closed. 1000 mL (Bolus) IV Bolus given in lab by Anesthesia, MAGISTRATE via Peripheral IV. Using D5W .45 NaCl . Ordered by Helen, 16:17:59 Tamara. Reason: As per physicians verbal order. 1st of 2 liters ordered Final Sponge And Instrument Count Done by Caitlin Rodriguez RCIS. 16:18:52 Hypo's: 3, Sponges: 20, Bovie/scratch: 2 Sutures: 10, Blades: 1, Instruments: 26, Syveck Patches: ~SYVECK PATCH~ verified by 16:21:04 RFV Temp pacer sheath pulled by RW. Manual pressure being held. 16:23:00 Case End (Physician broke scrub) 16:24:25 Steri-strips and a sterile dressing applied to site. 08/03/2018 5:18:30 PM Financial #: [id number] Patient Name: Brisa Hernandez Study #: [id number] Initial MD: Tamara Cervantes Date of : 1975 Study Date: 08/03/2018 Assessment: Final Case, HR=54 BPM, NIBP=90/32 mmhg, Edema=Mild, Color=Pale, Skin = Dry, Cool Right Pulses: Kristian Ped=d Left Pulses: Kristian Ped=d Lower Right Extremities: Color=Pale 16:25:25 Lower Left Extremities: Color=Pale Neurological: State=Unresponsive Respiration: Resp=14 B/min, SpO2=98 %, O2=15 lpm, Type=ET(Oral), Alarm=On, Comment=see anesth esia notes for airway management details 16:25:32 Implant Procedure was performed. 16:25:50 A Pocket Revision . (Dual) 16:26:16 A Lead Revision . (Dual) 16:26:36 Bedside Report will be given. 16:27:45 A sling was placed on the affected arm. 16:29:37 No case complications noted. 16:29:38 Cine recording checked. 16:29:46 Implantable Device card placed in patient's chart. 16:29:48 Defibrillator and ground pads removed. Skin intact. 16:33:52 Patient moved to stretcher 16:35:02 Pt transported with MAGISTRATE, RN, and tech accompanying back to [facility] in critical condition wit h MAGISTRATE managing airway. End Study - Contrast Media Used In Study Contrast Total Opened (mL) Total Used (mL) Total Wasted (mL) Unspecified 0 0 0 End Study - Maximum Contrast Load Max Contrast Load (mL) 172.2 End Study - Radiation Exposure Fluoro Time (minutes) 9.2 End Study - Sheaths Sheaths Pulled By Sheath Hold Time (min) Bethany Mendieta 15 End Study - Patient Disposition Complications Transferred To Interventional Outcome No Critical Care Bed successful 08/03/2018 5:18:30 PM Financial #: [id number]
[2018-08-03 17:21] LABS: VBG Base Excess -14.4 mmol/L (-2-2); VBG Blood Gas Oxygen Content 10.3 Vol % (9.0-17.0); VBG PCO2 40 mmHG (44-48); VBG PH 7.14 (7.360-7.400); VBG PO2 54 mmHG (35-40)
[2018-08-03 17:23] LABS: Hematocrit 28.5 % (35.0-46.0); Hemoglobin 9.4 gm/dL (11.6-15.3); Mean Corpuscular Hemoglobin 29.7 pg (27.0-34.0); Mean Corpuscular Volume 90.1 fL (80.0-100.0); Platelet Count 229 th/mm3 (150-450); Red Blood Count 3.17 mil/mm3 (4.00-5.30); Red Cell Distribution Width 14.3 % (11.6-17.2); White Blood Count 35.1 th/mm3 (4.0-11.0)
[2018-08-03 17:43] LABS: Alanine Aminotransferase 46 U/L (10-53); Albumin 1.8 g/dL (3.4-5.0); Alkaline Phosphatase 47 U/L (45-117); Anion Gap 27 meq/L (5-15); Aspartate Aminotransferase 83 U/L (15-37); Blood Urea Nitrogen 23 mg/dL (7-18); Calcium 7.6 mg/dL (8.5-10.1); Carbon Dioxide 13.7 meq/L (21.0-32.0); Chloride 109 meq/L (98-107); Glomerular Filtration Rate 15 mL/min (>89); Glucose,Random 276 mg/dL (74-106); Magnesium 1.6 mg/dL (1.5-2.5); Sodium 150 meq/L (136-145); Total Protein 3.8 g/dL (6.4-8.2)
[2018-08-03 17:45] LABS: Potassium 2.9 meq/L (3.5-5.1)
--- NOTE | 2018-08-03 18:10 | P.PCN ---
Date of procedure: 08/03/18 Pre-op diagnosis: Renal failure, acidosis Post-op diagnosis: same Procedure: US guided right femoral Vas-Cath Central line checklist completed, timeout completed. I wore a surgical cap, mask with protective eyewear, full gown and sterile gloves throughout the procedure. Right femoral region was prepped using chlorhexidine scrub and draped in sterile fashion. The femoral vein was identified using the ultrasound. Anesthesia was achieved over the vein using 1% lidocaine. The introducer needle was inserted into the right femoral vein under direct ultrasound visualization. Venous blood was withdrawn. The syringe was removed and a guidewire was advanced into the introducer needle. A small incision was made at the skin surface with a scalpel and the introducer needle was exchanged for a dilator over the guidewire. After appropriate dilation was obtained, the dilator was exchanged over the wire for a double lumen, 14F, 20 CM antibiotic coated central venous catheter. The wire was removed and the catheter was sutured in place at 19 cm. A sterile central line dressing was placed over the catheter at the insertion site. The patient tolerated the procedure without any hemodynamic compromise. At time of procedure completion, all ports aspirated and flushed properly. Post-procedure chest x-ray is pending at this time. Surgeon: Pedro Torres Estimated blood loss (mL): 2 Pathology: none sent Condition: critical Disposition: ICU
--- NOTE | 2018-08-03 18:19 | MB ---
cc: Tamara Cervantes MD DATE: 08/03/2018 HISTORY OF PRESENT ILLNESS: I was called by Dr. Torres about Ms. Hernandez. This is a 42-year-old female with lupus, Crohn disease, gastroparesis, chronic renal insufficiency, history of long QT syndrome. She has a defibrillator implanted. She had an infection and subsequently a subpectoral device was implanted. Again, there was some infection and a new device was implanted on 06/27/2018. The patient was noncompliant with followup and missed my last office visit. She was in the emergency room due to chills and shortness of breath. Subsequently, she was in severe bradycardia. Her defibrillator was interrogated. She showed poor capture. She was transferred to the intensive care unit and she was put on Isuprel and pressors. Her lactic acid was high. Her blood pressure was adequate. I was consulted for further evaluation and management. The chart was reviewed. The patient was evaluated. I discussed the case extensively with Ms. Hernandez and Dr. Torres. ALLERGIES: MULTIPLE. SHE IS ALLERGIC TO CEPHALEXIN, FISH OIL, KETOROLAC, PENICILLIN, NEURONTIN, KEFLEX, PHENERGAN, REGLAN, SEAFOOD, PROCHLORPERAZINE, CEPHALEXIN. REVIEW OF SYSTEMS: This morning, the patient referred she was tired but okay. No chest pain. Some shortness of breath and shaking but no fever. PHYSICAL EXAMINATION: GENERAL: Alert. When I did evaluate her, she was oriented. VITAL SIGNS: Blood pressure was around 101/50, pulse pacing at 70. LUNGS: Ventilated. CARDIOVASCULAR: S1, S2. Regular. DIAGNOSTIC DATA: Electrocardiogram on admission indicated V pacing that was at a rate of around 40 beats per minute. LABORATORY DATA: Hemoglobin 9.6, white blood cells 10.1. INR 1.1. Lactic acid was 4.1 this morning. Potassium 3.3, creatinine 2.55, AST 15, ALT 13. TSH 2.25. ASSESSMENT AND RECOMMENDATIONS: Ms. Hernandez was admitted due to apparently acidosis and shortness of breath. Fluoroscopy of the x-ray showed lead in good position. There was a good impedance on defibrillator interrogation. She was barely captured at 7.5. She was stable, alert and oriented. Blood pressure adequate. During the day, Ms. Hernandez's condition continued to decline despite good blood pressure. Dr. Torres increased the pressors. At that point, I decided to bring the patient to the lab as it was scheduled before to implant a new device for her. The risks and the benefits of the procedure were clearly stated to her earlier in the day. The risks included pneumothorax, infection, stroke and even . She understood and agreed to proceed. ADDENDUM: Ms. Hernandez was brought to the lab. A temporary pacer was inserted from the right femoral vein. She was intubated by Dr. Torres. A 2-D echo indicated inadequate left ventricular systolic function. Her condition is poor. Sepsis should be ruled out. MD ALISSA Greenberg/jennifer , 04:23 PM , 04:36 PM
[2018-08-03] MEDS ORDERED: [UNRECOGNIZED DRUG - REMARK] OTHER SCH (19:00)
[2018-08-03] MEDS: Levothyroxine 112 MCG Tablet PO SCH (19:34)
[2018-08-03] MEDS: Senna/Docusate Sodium 8.6/50 MG Tablet PO SCH ×2 (19:34→20:59)
[2018-08-03] MEDS: Sodium Bicarbonate 8.4% Inj 100 MEQ in Sodium Chloride 0.45 % Inj 1,000 ML IV.CONT SCH ×4 (19:39→22:22)
--- NOTE | 2018-08-03 19:41 | ECG ---
Date Performed: 08/03/2018 Time Performed: 16:58:21 PTAGE: 42 years EKG: ELECTRONIC VENTRICULAR PACEMAKER ABNORMAL RHYTHM ECG Prior EKG has marked artifact and I ca nnot accurately compare. PREVIOUS TRACING : 08/03/2018 10.58 DOCTOR: Shine Galvan Interpretating Date/Time 08/03/2018 19:40:09
--- NOTE | 2018-08-03 19:42 | MP ---
cc: Tamara Cervantes MD DATE OF OPERATION: 08/03/2018 PROCEDURE PERFORMED: Defibrillator removal, new atrial lead insertion, new right ventricular defibrillator lead insertion, right ventricular lead extraction and temporary pacer insertion. INDICATIONS: Ms. Hernandez is a 42-year-old female with multiple history of systemic illness. She has a long QT. She has episodes of syncope. She has a low pulse. She had previous device insertion and infection. She has renal failure. She was admitted due to bradycardia, shaking and shortness of breath. Lactic acid is . There is poor capture of the RV. The patient will need AV synchrony. After a discussion with Dr. Torres, a decision for new RA and RV lead implantation discussed. The risks, the nature and the benefits were clearly stated earlier to the patient. The risks included pneumothorax, cardiac perforation, stroke and even . She understood at that point and agreed to proceed. DESCRIPTION OF PROCEDURE: Written informed consent was obtained earlier from the patient. The patient was brought to the catheterization laboratory where she was prepped and draped in the usual sterile fashion. Conscious sedation was initiated and maintained by the anesthesiologist. Once sedation was verified, the left infraclavicular area over the existing generator was anesthetized with 2% Xylocaine. Using a PlasmaBlade, a 3 cm incision was made over the existing generator. This incision was taken down to the deep fascial layer using Bovie cautery and blunt dissection. Once exposed, the generator was removed from the pocket and around the leads, the pocket was expanded. Then, using modified Seldinger technique, the left subclavian vein was cannulated on 2 occasions and 2 guidewires were advanced. Over the lateral wire, a 7 Maldivian dilator and introducer were advanced. The dilator and wire were removed and an active fixation right atrial pacing and sensing lead was advanced. I did map basically every single entry of the atrium. There was very poor sensing and capture. We could not decide if the patient was capturing because whenever we paced, there was no significant P-wave to follow. At that point, I did leave the right atrial lead near the right atrial appendage and the lead was sutured in the pocket using #2 Ethibond suture. Then, over the remaining wire, an 8 Maldivian dilator and introducer were advanced. The dilator and wire were removed and an active fixation right ventricular pacing and sensing defibrillator lead was advanced. The lead was placed on the septum. There was no sensing in the lower septum as well as the apex. I put the lead in the mid septal area. After adequate pacing and sensing thresholds were obtained, the lead was secured in the pocket using #2 Ethibond suture. At that point, I decided to remove the existing lead. and the lead extraction was performed. A 2-0 Vicryl suture was placed at the exit point to prevent backbleeding. At that point, the pocket was copiously irrigated using antibiotic solution. Because of the patient's general medical condition, I decided not to change the defibrillator and implant a dual-chamber defibrillator. Because I do not know about the patient's condition and infection status and because the patient's condition is very, very critical, I decided to use the same device and use it in a VDD mode. The A sensing plug and the defibrillator lead were capped and the RA was plugged and the A sensing port of the device. Both new leads were connected to the device and placed into the pocket. I did proceed with wound closure. The deep fascial layer was approximated using #2-0 Vicryl suture in a continuous fashion. The subcutaneous layer was approximated using #2-0 Vicryl suture in a continuous fashion. The subcuticular layer was approximated using #2-0 Vicryl suture in a continuous fashion. Dermabond adhesive was applied to the wound, followed by a sterile pressure dressing. There was no complication from the device. The patient tolerated the procedure. Blood loss was maybe less than 50 mL. EXPLANTED HARDWARE: The existing defibrillator was a Biotronik. The explanted right ventricular pacing and sensing defibrillator lead was a Biotronik serial #[id number]. IMPLANTED HARDWARE: The implanted right atrial pacing and sensing lead is a Biotronik model #833267, serial #[id number]. The implanted right ventricular pacing and sensing defibrillator lead is a Biotronik model #406299, serial #[id number]. THRESHOLDS: The right ventricular pacing threshold in bipolar mode was 1.6 millivolts at 0.4 millisecond, lead impedance 510 ohms, R wave at 12.5 millivolts. SETTINGS: The device was set in VDD 50 so we can allow the atrial to come in after the patient's acidotic state begins to resolve. If at that time the patient needs atrial pacing, then I will change the device. It is VDD 50, upper limit 130 beats per minute. Defibrillator portion for 2 zones. One zone for ventricular tachycardia between 180-250 beats per minute. Initial therapy consists of 1 burst of ATP, 1 ramp, 81% 10 pause, 10 millisecond decremental, followed by 20, then 30 and a second shock at 40 joule defibrillatory shock. Second zone for ventricular fibrillation above 250 beats per minute. First therapy at 30 and a second shock at 40 joule defibrillatory shock. CONCLUSIONS: Successful lead extraction, new right atrium and right ventricle insertion, defibrillator implantation. RECOMMENDATIONS: The patient is to be transferred to the ICU again. Her condition is critical. If there is a need in the future, then I will upgrade the device to a dual-chamber device. MD ALISSA Greenberg/jennifer/ , 04:31 PM , 04:48 PM
[2018-08-03] MEDS: Phenylephrine Inj 40 MG in Dextrose 5% in Water Inj 496 ML IV.CONT PRN ×2 (19:44)
[2018-08-03] MEDS ORDERED: Calcium Chloride Inj 2 GM in Sodium Chlor 0.9% Inj 100 ML IV.SIG ONE (20:00)
[2018-08-03] MEDS ORDERED: EPINEPHrine (1:1000) Inj 4 MG in Sodium Chlor 0.9% Inj 246 ML IV.CONT PRN (20:01)
[2018-08-03] MEDS ORDERED: Lidocaine/D5W 2000 mg/500 mL 2,000 MG/500 ML BAG IV.SIG ONE (20:06)
[2018-08-03] MEDS ORDERED: Vasopressin Inj 40 UNIT in Dextrose 5% in Water Inj 98 ML IV.CONT SCH ×2 (21:00)
[2018-08-03] MEDS ORDERED: DOBUTamine Inj 1,000 MG in Sodium Chlor 0.9% Inj 170 ML IV.CONT SCH (21:00)
[2018-08-03 21:02] LABS: INR 1.7 Ratio; Prothrombin Time 17.4 sec (9.8-11.6)
[2018-08-03] MEDS: Sod Chloride 0.9% Inj 1,000 ML OTHER SCH (21:05)
[2018-08-03] MEDS ORDERED: SODIUM CHLOR 0.9% IV.CONT PRN (21:13)
[2018-08-03] MEDS ORDERED: PROTAMINE SULFATE IV.CONT PRN (21:13)
[2018-08-03] MEDS ORDERED: Heparin Drip 25,000 UNIT/250 ML BAG IV.CONT PRN (21:26)
--- NOTE | 2018-08-03 21:32 | XR ---
EXAM DATE: 08/03/2018 12:00 AM EDT AGE/SEX: 42 years / Female INDICATIONS: SP ICD. CLINICAL DATA: This is the patient's initial encounter. Patient reports that signs and symptoms have been present for 1 day and indicates a pain score of Nonresponsive. MEDICAL/SURGICAL HISTORY: Hypertension. Pacemaker. COMPARISON: [facility], CHEST 1V SINGLE AP, 08/03/2018. . FINDINGS: Endotracheal tube in good position. Right IJ line tip in right atrium. Pacer leads overlie right atri um and right ventricle. Basilar dependent airspace disease in the lungs. Cardiomegaly. No pneumothora x. CONCLUSION: Endotracheal tube in good position. Right IJ line in right atrium. Basilar and dependent airspace dis ease in the lungs. Electronically signed by: Hay Day MD 08/03/2018 9:30 PM EDT
--- NOTE | 2018-08-03 22:58 | MB ---
cc: Slim Arrieta MD DATE: 08/03/2018 REASON FOR CONSULTATION: Acute kidney injury and severe metabolic acidosis. HISTORY OF PRESENT ILLNESS: This is a 42-year-old female with a past medical history of systemic lupus erythematosus, hypothyroidism, Crohn disease, endometriosis, gastroparesis, chronic kidney disease, Brugada syndrome with ICD placement by Dr. Cervantes last month on 06/27/2018. The patient was admitted with generalized weakness and bradycardia. I was called because of acute kidney injury and severe metabolic acidosis. The patient has been in the hospital since she came to the ER last night, and upon presentation, her creatinine was 2.5 and it has gone up to 3.4. The patient has been hypotensive and on the vent and has been in a shock status. Cardiology has been following and the patient has been too unstable for pacemaker placement. 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 Her blood pressure remains still on the lower side. The patient has a very low urine output. She has severe metabolic acidosis with a very high lactic acid level. After discussing with Dr. Torres of critical care, it was decided that we will start her on CVVH because of severe metabolic acidosis and acute kidney injury. The patient had some clotting problems with the CVVH and now we are starting regional heparinization with protamine. The patient is intubated and not able to give any history. Most of the history was taken from the patient's chart. PAST MEDICAL HISTORY: History of lupus erythematosus, hypothyroidism, endometriosis, Crohn disease, interstitial cystitis, chronic kidney disease, gastroparesis. PAST SURGICAL HISTORY: Colonoscopy, cystoscopy, laparoscopy, AICD placement, appendicectomy. REVIEW OF SYSTEMS: Cannot be taken since the patient is intubated. SOCIAL HISTORY: There is no history of smoking or alcoholism. FAMILY HISTORY: Not available. ALLERGIES: SHE IS ALLERGIC TO CEPHALEXIN, FISH-CONTAINING PRODUCTS, KETOROLAC, PENICILLIN G. MEDICATIONS: Currently, she is on the following medications: 1. Tylenol as needed. 2. Albuterol as needed. 3. Aztreonam 1 gram q.8 hours. 4. Dulcolax as needed. 5. Diazepam 10 mg p.r.n. 6. Dobutamine, dopamine and epinephrine as needed. 7. Hydrocortisone 100 mg IV q.8 hours. 8. Lactulose 30 mL p.r.n. 9. Synthroid 112 mcg daily. 10. Magnesium oxide p.r.n. 11. Metronidazole 500 mg q.8 hours IV. 12. Morphine as needed. 13. Zofran as needed. 14. Potassium supplement as needed. PHYSICAL EXAMINATION: GENERAL: The patient is intubated and sedated. She is currently on multiple pressors and started on CRRT. VITAL SIGNS: Blood pressure is staying in the range of systolic 90s and diastolic around 45, temperature is 95.5, oxygen saturation IS 100% with an FiO2 of 100%. HEENT: Pupils are mid constricted. Nonicteric sclerae. Conjunctivae are pale. NECK: Supple. JVD is not seen. LUNGS: The patient has bilateral good air entry with decreased in the bases, basal rales and diffuse wheezing. HEART: S1, S2, irregular rhythm. ABDOMEN: Distended, soft, lax. There is no definite tenderness. EXTREMITIES: She has 1+ edema. INVESTIGATIONS: WBC count 35.1, hemoglobin 9.4, platelet count 229. INR is 1.7. Sodium 150, potassium 2.9, chloride 109, bicarbonate 13.7, BUN 23, creatinine 3.4. Lactic acid is 14.3. Calcium 7.6, magnesium 1.6. AST 83, ALT 46. Total protein is 3.8 with an albumin of 1.8. Urinalysis is showing protein of 500 or greater. IMAGING STUDIES: The patient had chest x-ray done which showed mild left lung base airspace disease, possibly atelectasis. ASSESSMENT: 1. Acute kidney injury with a history of chronic kidney disease. 2. Hypotension and shock status. 3. Severe metabolic acidosis. 4. Leukocytosis, possibly sepsis. 5. History of Crohn disease. 6. Electrolyte disorder with hypokalemia and hyponatremia. 7. History of lupus erythematosus. PLAN: The patient has been on multiple pressors and she has a very high lactic acid level, possibly because of the hypoperfusion of the tissues and is causing metabolic acidosis. She started on CRRT. We are giving her bicarbonate for replacement and trying to improve the acidosis. The CRRT we are doing with a dialysate flow of 1 liter per hour and doing the CRRT with 4.0 potassium because of low potassium. Follow the electrolytes and continue the CRRT. Continue the antibiotics. Follow the culture result. Thank you for the consultation. I will follow the patient while she is in the hospital. MD AVIS Dexter/jennifer , 09:32 PM , 09:46 PM
[2018-08-03] MEDS: Sod Chloride 0.9% Inj 100 ML OTHER SCH (23:10)
[2018-08-04] MEDS: Sodium Bicarbonate 8.4% Inj 100 MEQ in Sodium Chloride 0.45 % Inj 1,000 ML IV.CONT SCH ×15 (00:10→16:35)
[2018-08-04] MEDS: Phenylephrine Inj 40 MG in Dextrose 5% in Water Inj 496 ML IV.CONT PRN ×4 (00:10→04:28)
[2018-08-04] MEDS: Sod Chloride 0.9% Inj 100 ML OTHER SCH ×9 (01:09→16:35)
[2018-08-04] MEDS: Midazolam 50 MG/50 ML Inj 50 MG/50 ML BAG IV.CONT PRN ×4 (01:30→16:37)
[2018-08-04] MEDS: Chlorhexidine Gluconate 2% 1 Pack (2 Cloths) TOPICAL SCH (03:12)
[2018-08-04] MEDS: Sod Chloride 0.9% Inj 1,000 ML OTHER SCH (03:33)
[2018-08-04] MEDS ORDERED: Chlorhexidine Gluconate 2% 1 Pack (2 Cloths) TOPICAL PRN (04:00)
[2018-08-04] MEDS: Sod Chloride 0.9% Inj 1,000 ML IV.CONT SCH ×3 (04:27→16:52)
[2018-08-04] MEDS ORDERED: fentaNYL Citrate Inj 100 MCG/2 ML Ampul IV.PUSH ONE (04:38)
[2018-08-04 04:57] LABS: Baso # (Auto) 0.3 th/mm3 (0.0-0.2); Baso % (Auto) 0.8 % (0.0-2.0); Hematocrit 30.8 % (35.0-46.0); Hemoglobin 10.2 gm/dL (11.6-15.3); Lymph # (Auto) 1.5 th/mm3 (1.0-4.8); Lymph % (Auto) 3.5 % (9.0-44.0); Mean Corpuscular HGB Conc 33.2 % (32.0-36.0); Mean Corpuscular Hemoglobin 28.2 pg (27.0-34.0); Mean Platelet Volume 7.7 fL (7.0-11.0); Mono # (Auto) 3.5 th/mm3 (0.0-0.9); Mono % (Auto) 8.3 % (0.0-8.0); Neut % (Auto) 87.4 % (16.0-70.0); Platelet Count 82 th/mm3 (150-450); Red Blood Count 3.63 mil/mm3 (4.00-5.30); Red Cell Distribution Width 14.4 % (11.6-17.2); White Blood Count 42.3 th/mm3 (4.0-11.0)
[2018-08-04] MEDS: Hydrocortisone Sod Succinate 100 MG Vial IV.PUSH SCH ×2 (05:13→13:36)
[2018-08-04 05:14] LABS: Alanine Aminotransferase 125 U/L (10-53); Albumin 3.1 g/dL (3.4-5.0); Alkaline Phosphatase 61 U/L (45-117); Anion Gap 14 meq/L (5-15); Aspartate Aminotransferase 254 U/L (15-37); Blood Urea Nitrogen 24 mg/dL (7-18); Calcium 7.7 mg/dL (8.5-10.1); Carbon Dioxide 26.7 meq/L (21.0-32.0); Chloride 100 meq/L (98-107); Glomerular Filtration Rate 17 mL/min (>89); Glucose,Random 247 mg/dL (74-106); Sodium 141 meq/L (136-145); Total Protein 5.7 g/dL (6.4-8.2)
[2018-08-04 05:22] LABS: Potassium 2.7 meq/L (3.5-5.1)
[2018-08-04] MEDS: fentaNYL 10 mcg/mL Premix Drip 2,500 MCG/250 ML BAG IV.SIG PRN ×2 (05:23→16:36)
[2018-08-04 05:33] LABS: ABG Base Excess 5.4 mmol/L (-2-2); ABG PCO2 28 mmHg (38-42); ABG PO2 121 mmHG (61-120)
[2018-08-04 06:55] LABS: ABG Base Excess 4.8 mmol/L (-2-2); ABG PCO2 38 mmHg (38-42); ABG PO2 119 mmHG (61-120)
[2018-08-04] MEDS: Potassium Chloride Inj 30 MEQ in Sodium Chlor 0.9% Inj 100 ML IV.SIG SCH ×2 (06:56→11:32)
--- NOTE | 2018-08-04 07:10 | P.PNCC ---
Subjective Subjective Remarks/Hospital Course: 42-year-old female with past medical history of systemic lupus erythematosus, Crohn's disease, hypothyroidism, endometriosis, gastroparesis, chronic kidney disease stage III, interstitial cystitis, Brugada syndrome with ICD replaced 06/27/[address] Cervantes. 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 She states she was taking a shower this evening and felt weak and presyncopal. She was transported by [facility] with heart rate 30s to 40s. Upon arrival she had ventricular paced rhythm at a rate of 40. Her blood pressure was 78/35. Transcutaneous pacer was placed with backup rate of 60. She was started on dopamine which has been titrated up to 16 mcg/kg/min with heart rate in the 70s-80s and blood pressure 93/51. Her pacemaker was interrogated and was noted to be intermittently capturing. I do not appreciate damage to lead or definite migration on chest x-ray though image is rotated c/ w prior. Dr. Nowak discussed with Dr. English who recommended Dopamine with backup transcutaneous pacing and consultation with Dr. Cervantes in the morning. Patient states that she began feeling weak about a week and a half ago when her Norvasc was increased. It was initially increased to 10 mg p.o. daily. Was recently admitted 07/24-07/25 and at that time was told to take Norvasc 5 mill grams p.o. twice daily which she states she has been taking as prescribed. She denies chest pain or shortness of breath. She became nauseated and vomited small amount of emesis, nonbloody nonbilious after arrival to the ED. She states she has some tenderness of the chest wall, noted some drainage 2 days ago from anterior incision but I do not see any now. She states yesterday she had a temp 102.7. She is afebrile in the ED without leukocytosis. She does have history of pocket infection in december 2017 and 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 and then replaced in [facility] (original device placed 10/03/17). She had additional chest wall infection 02/2018 with MRSA resulting in device removal and wound vac placement. ICD was replaced 06/27/[address] Cervantes. She states she has a prior history of menorrhagia and has had vaginal bleeding for about a month. It has been heavier over the last couple of days changing 1 pad per hour. Her hemoglobin is 9.6, previously 9.7 on 07/25. SUBJ 08/03: Patient continues to be external pacer dependent. Currently on 20mcg/kg/min of dopamine. When the pacer rate is decreased patient's heart rate decreases to mid 20s and she is symptomatic. I have emergently placed a right IJ central line to administer vasoactive medication. Add Isuprel. Discussed personally with Dr. Helen PEREZ. I reviewed the previous report from [facility] in the ED the rate was reduced to VVI 30 as the patient complained about pain with pacing. We have contacted [facility] again to increase the backup rate to 60 At about 1.30 pm I was called emergently to the bedside as the patient sustained tonic-clonic seizures for approximately 30 sec, Ativan 2 mg push was given with resolution of seizure. Prior to this patient had been placed on Isuprel at 8 mcg/min, dopamine running at 20 mcg/kg/min, and Levophed at 20 mcg/ kg/min. Patient appear to be postictal and unresponsive her heart rate was approximately 30 bpm manually. Because of hemodynamic instability and lack of airway protection and anticipated pacemaker placement I proceeded with endotracheal intubation and placed on mechanical ventilation. Post intubation I also placed an arterial line which showed actual heart rate to be in the 30s and patient remained in severe shock on multiple pressors with a map 50-55. I added epinephrine infusion at 5 mcg/min and rapidly titrated up to 10 mcg/min. Levophed was increased to 30 mcg/min. An ABG showed severe metabolic acidosis pH of 6.9 base excess was -20. 4 Amps of bicarb IVP given, and bicarb infusion started. Additional fluid resuscitation was carried out. Bedside echo shows heart beating only about 30 bpm but good contractility, EF> 60%. I discussed this again with Dr. Cervantes. Even though patient is hemodynamically unstable her only chance of survival is in emergent pacemaker placement as she is not capturing with 120 MA on transcutaneous pacer, and patient remained in shock and heart rate in 30s despite maximum dose of Isuprel and dopamine and epinephrine. I accompanied the patient to the Surveillance Dual Rate Officer and continued resuscitation with intermittent epinephrine pushes 1 amp of atropine push. I stayed at the bedside of the patient until the temporary pacemaker was placed by Dr. Cervantes on the fluoroscopy and patient had good capture. I also updated the mother about the very critical nature of the patient's condition and high probability that patient may not survive this episode as she is extremely acidotic and in profound shock 08/04: Patient was in profound shock yesterday up to 5 vasopressor and inotropic agents. See notes from yesterday. Patient had emergency temporary pacemaker placed in the Surveillance Dual Rate Officer under fluoroscopy followed by permanent pacemaker placement. At that time she remained on high-dose pressors, for correction of acidosis and anuria started on CVVH. Overnight has started to improve. Currently weaned off dopamine and Isuprel. Inherent sinus rhythm heart rate 65 bpm not paced at this time. Currently remains on epinephrine at 3 mcg/min, Levophed at 3 mcg/min, Caleb-Synephrine and Afrin at 50 mcg/min and vasopressin 0.04 international units. Map consistently above 80. Patient wakes up follows commands despite being sedated with Versed and fentanyl. lactate improved from 14.3 to 4. Remains anuric Objective Vital Signs / I&O: Vital Signs 08/03/18 07:13 08/03/18 07:16 08/03/18 07:31 Temperature Pulse Rate 63 62 61 Respiratory Rate 19 20 17 Blood Pressure 94/48 L 92/51 L 94/49 L Pulse Oximetry 87 L 93 L 93 L 08/03/18 07:46 08/03/18 08:00 08/03/18 08:01 Temperature 96.5 F L Pulse Rate 60 60 59 L Respiratory Rate 18 25 H 18 Blood Pressure 86/49 L 90/49 L Pulse Oximetry 93 L 90 L 96 08/03/18 08:13 08/03/18 08:15 08/03/18 08:31 Temperature Pulse Rate 59 L 62 Respiratory Rate 16 29 H Blood Pressure 93/50 L 87/45 L Pulse Oximetry 95 92 L 96 08/03/18 08:45 08/03/18 09:00 08/03/18 09:01 Temperature Pulse Rate 59 L 59 L 84 Respiratory Rate 28 H 23 24 Blood Pressure 84/48 L 88/51 L Pulse Oximetry 90 L 97 97 08/03/18 09:16 08/03/18 09:30 08/03/18 09:45 Temperature Pulse Rate 60 59 L 79 Respiratory Rate 27 H Blood Pressure 95/48 L 96/46 L 101/53 L Pulse Oximetry 94 L 96 94 L 08/03/18 10:00 08/03/18 10:01 08/03/18 10:05 Temperature Pulse Rate 63 79 79 Respiratory Rate 13 18 Blood Pressure 101/50 L 101/50 L Pulse Oximetry 97 98 08/03/18 10:15 08/03/18 10:30 08/03/18 10:45 Temperature Pulse Rate 80 79 80 Respiratory Rate 22 23 16 Blood Pressure 93/52 L 97/53 L 94/48 L Pulse Oximetry 94 L 98 97 08/03/18 11:00 08/03/18 11:15 08/03/18 11:30 Temperature Pulse Rate 80 79 79 Respiratory Rate 19 11 L 21 Blood Pressure 94/49 L 97/53 L 98/47 L Pulse Oximetry 98 98 95 08/03/18 11:46 08/03/18 12:00 08/03/18 12:16 Temperature 95.5 F L Pulse Rate 79 85 79 Respiratory Rate 22 28 H 25 H Blood Pressure 88/44 L 99/50 L 81/40 L Pulse Oximetry 93 L 91 L 94 L 08/03/18 12:32 08/03/18 12:56 08/03/18 13:00 Temperature Pulse Rate 81 79 79 Respiratory Rate 33 H 27 H 23 Blood Pressure 99/47 L 97/47 L Pulse Oximetry 92 L 93 L 92 L 08/03/18 13:01 08/03/18 13:24 08/03/18 13:28 Temperature Pulse Rate 79 80 Respiratory Rate 24 36 H 16 Blood Pressure 92/46 L 110/51 L Pulse Oximetry 93 L 97 100 08/03/18 13:41 08/03/18 13:56 08/03/18 14:00 Temperature Pulse Rate 80 65 59 L Respiratory Rate 19 46 H 46 H Blood Pressure 102/55 L 103/57 L Pulse Oximetry 94 L 88 L 95 08/03/18 14:01 08/03/18 14:10 08/03/18 14:20 Temperature Pulse Rate 59 L 60 59 L Respiratory Rate 45 H 46 H 55 H Blood Pressure 105/54 L 98/51 L 104/55 L Pulse Oximetry 98 100 99 08/03/18 14:32 08/03/18 14:40 08/03/18 14:48 Temperature Pulse Rate 100 H 100 H Respiratory Rate 51 H Blood Pressure 103/58 L 107/64 Pulse Oximetry 08/03/18 14:50 08/03/18 15:04 08/03/18 16:00 Temperature Pulse Rate Respiratory Rate Blood Pressure 106/52 L 97/47 L Pulse Oximetry 95 08/03/18 16:28 08/03/18 16:36 08/03/18 16:45 Temperature 95.5 F L Pulse Rate 54 L 54 L 56 L Respiratory Rate 6 L 25 H Blood Pressure 115/58 L 92/47 L Pulse Oximetry 97 99 08/03/18 16:47 08/03/18 16:50 08/03/18 16:52 Temperature Pulse Rate 56 L 56 L 56 L Respiratory Rate 4 L 0 L Blood Pressure 95/46 L 93/44 L 95/45 L Pulse Oximetry 99 99 99 08/03/18 16:55 08/03/18 16:57 08/03/18 17:00 Temperature Pulse Rate 56 L 56 L 56 L Respiratory Rate 0 L 0 L 0 L Blood Pressure 92/46 L 91/45 L 92/44 L Pulse Oximetry 99 99 99 08/03/18 17:48 08/03/18 18:50 08/03/18 18:53 Temperature Pulse Rate 68 68 Respiratory Rate 24 Blood Pressure 86/41 L 86/43 L Pulse Oximetry 100 100 100 08/03/18 18:55 08/03/18 18:58 08/03/18 19:00 Temperature Pulse Rate 69 69 70 Respiratory Rate 0 L Blood Pressure 87/43 L 90/44 L 87/45 L Pulse Oximetry 99 100 100 08/03/18 19:02 08/03/18 19:05 08/03/18 19:08 Temperature Pulse Rate 70 70 70 Respiratory Rate Blood Pressure 87/44 L 87/44 L 85/42 L Pulse Oximetry 100 100 100 08/03/18 19:10 08/03/18 19:13 08/03/18 19:15 Temperature Pulse Rate 70 70 70 Respiratory Rate Blood Pressure 84/41 L 88/43 L 85/42 L Pulse Oximetry 100 99 99 08/03/18 19:18 08/03/18 19:20 08/03/18 19:23 Temperature Pulse Rate 70 70 70 Respiratory Rate Blood Pressure 87/43 L 85/43 L 86/42 L Pulse Oximetry 100 100 100 08/03/18 19:25 08/03/18 19:28 08/03/18 19:30 Temperature Pulse Rate 70 70 70 Respiratory Rate Blood Pressure 84/41 L 82/41 L 87/42 L Pulse Oximetry 100 100 100 08/03/18 19:33 08/03/18 19:35 08/03/18 19:38 Temperature Pulse Rate 70 70 70 Respiratory Rate Blood Pressure 92/44 L 90/44 L 88/44 L Pulse Oximetry 100 100 100 08/03/18 19:40 08/03/18 19:43 08/03/18 19:45 Temperature Pulse Rate 70 70 70 Respiratory Rate Blood Pressure 88/44 L 88/44 L 91/45 L Pulse Oximetry 100 100 100 08/03/18 19:48 08/03/18 20:00 08/03/18 20:15 Temperature Pulse Rate 70 72 72 Respiratory Rate Blood Pressure 90/45 L 98/54 L 84/41 L Pulse Oximetry 100 100 100 08/03/18 20:30 08/03/18 20:45 08/03/18 21:00 Temperature Pulse Rate 72 72 73 Respiratory Rate Blood Pressure 84/44 L 86/44 L 85/45 L Pulse Oximetry 100 100 100 08/03/18 21:15 08/03/18 21:30 08/03/18 21:45 Temperature Pulse Rate 73 73 75 Respiratory Rate Blood Pressure 87/46 L 86/47 L 93/50 L Pulse Oximetry 100 100 100 08/03/18 22:00 08/03/18 22:15 08/03/18 22:30 Temperature Pulse Rate 78 80 82 Respiratory Rate 24 Blood Pressure 101/51 L 108/54 L 111/53 L Pulse Oximetry 100 100 100 08/03/18 22:45 08/03/18 23:00 08/03/18 23:15 Temperature Pulse Rate 81 86 87 Respiratory Rate Blood Pressure 112/53 L 109/55 L 112/53 L Pulse Oximetry 97 97 98 08/03/18 23:30 08/03/18 23:45 08/04/18 00:00 Temperature Pulse Rate 91 H 92 H 92 H Respiratory Rate Blood Pressure 116/56 L 115/55 L 132/65 Pulse Oximetry 97 97 99 08/04/18 00:15 08/04/18 00:30 08/04/18 00:45 Temperature 97.8 F Pulse Rate 94 H 93 H 90 Respiratory Rate Blood Pressure 117/56 L 116/54 L 116/56 L Pulse Oximetry 97 97 95 08/04/18 01:00 08/04/18 01:11 08/04/18 01:15 Temperature Pulse Rate 83 75 Respiratory Rate 24 Blood Pressure 111/53 L 104/55 L Pulse Oximetry 94 L 93 L 93 L 08/04/18 01:30 08/04/18 01:45 08/04/18 02:00 Temperature Pulse Rate 73 86 90 Respiratory Rate Blood Pressure 103/55 L 120/56 L 115/58 L Pulse Oximetry 92 L 96 97 08/04/18 02:15 08/04/18 02:30 08/04/18 02:45 Temperature Pulse Rate 84 81 81 Respiratory Rate Blood Pressure 118/59 L 119/59 L 119/60 Pulse Oximetry 98 99 99 08/04/18 03:00 08/04/18 03:15 08/04/18 03:30 Temperature Pulse Rate 79 71 72 Respiratory Rate Blood Pressure 122/64 108/57 L 108/58 L Pulse Oximetry 100 99 100 08/04/18 03:45 08/04/18 04:00 08/04/18 04:15 Temperature 98.9 F Pulse Rate 72 72 73 Respiratory Rate Blood Pressure 109/61 110/63 109/58 L Pulse Oximetry 100 100 97 08/04/18 04:30 08/04/18 04:45 08/04/18 04:55 Temperature Pulse Rate 81 70 Respiratory Rate 24 Blood Pressure 118/57 L 104/55 L Pulse Oximetry 100 100 100 08/04/18 05:00 08/04/18 05:15 08/04/18 05:30 Temperature Pulse Rate 68 68 68 Respiratory Rate Blood Pressure 103/60 109/66 92/64 L Pulse Oximetry 100 100 100 08/04/18 05:34 08/04/18 05:45 08/04/18 05:53 Temperature Pulse Rate 63 Respiratory Rate 25 H 18 Blood Pressure 119/67 Pulse Oximetry 100 08/04/18 05:55 Temperature Pulse Rate Respiratory Rate 22 Blood Pressure Pulse Oximetry 100 Intake & Output 08/03/18 08/04/18 08/04/18 18:59 06:59 18:59 Intake Total 5000 / 5000 90506.8 / 06343.8 Output Total 0 / 0 Balance 5000 / 5000 43248.8 / 30048.8 [place]: IV 32897.8 / 10319.8 Dobutrex Inj 1,000 MG In NS Inj 22.8 / 22.8 170 ML @ 2.5 MCG/KG/MIN 3.23 mls/hr IV.CONT .Q24H SHUKRI Rx#: [id number] DOPamine 400 MG/250 ML Premix 250 / 250 400 mg In 250 ml @ 0 mls/hr IV. CONT .STK-MED ONE Rx#:[id number] DOPamine 800 MG/500 ML Premix 448 / 448 800 mg In 500 ml @ 3 MCG/KG/MIN 9.696 mls/hr IV.CONT TITRATE PRN Rx#:[id number] Isuprel Inj 2 MG In D5W Inj 250 130 / 130 ML @ 2 MCG/MIN 15.6 mls/hr IV. CONT TITRATE PRN Rx#:[id number] Versed Inj 50 mg In 50 ml @ 2 50 / 50 MG/HR 2 mls/hr IV.CONT TITRATE PRN Rx#:[id number] Neosynephrine Inj 40 MG In D5W 1000 / 1000 Inj 496 ML @ 100 MCG/MIN 75 mls /hr IV.CONT TITRATE PRN Rx#: [id number] NS Inj 1,000 ML @ 125 mls/hr IV 1000 / 1000 .CONT .Q8H SHUKRI Rx#:[id number] Sodium Bicarbonate 8.4% Inj 100 9900 / 9900 MEQ In 1/2 Normal Saline Inj 1 ,000 ML @ 1000 mls/hr IV.CONT . Q1H6M SHUKRI Rx#:[id number] Flexbumin 25% Inj 100 ML @ 0 100 / 100 mls/hr IV.SIG .STK-MED ONE Rx#: [id number] Azactam Inj 1,000 MG In NS Inj 300 / 300 100 ML @ 200 mls/hr IV.SIG Q8H SHUKRI Rx#:[id number] Calcium Chloride Inj 2 GM In NS 120 / 120 Inj 100 ML @ 120 mls/hr IV.SIG ONCE ONE Rx#:[id number] Flagyl 500 MG Inj 100 ML @ 100 200 / 200 mls/hr IV.SIG Q8H SHUKRI Rx#: [id number] NS Inj 100 ML @ As Directed 400 / 400 OTHER Q2H SHUKRI Rx#:[id number] Other 5000 / 5000 Output: Urine Amount (Catheter) 0 / 0 Indwelling Urethral Catheter 0 / 0 Other: Other Intake Source Saline Solution Result Diagrams: 08/04/18 03:55 08/04/18 03:55 Objective Remarks: GENERAL: Chronically ill-appearing overweight female intubated sedated with Versed and fentanyl, on multiple pressors SKIN: Warm and dry. HEAD: Atraumatic. Normocephalic. EYES: Pupils equal and round. No scleral icterus. No injection or drainage. ENT: No nasal bleeding or discharge. Orotracheally intubated NECK: Trachea midline. No JVD. No meningismus. Right IJ central line in place CARDIOVASCULAR: Heart rate 65 bpm, currently not paced, 1/6 systolic murmur lsb. Baseline rhythm chronic A. fib. Left upper chest pacemaker dressing intact. Currently on Levophed at 3 mcg/min, epinephrine 3 mcg/min, Caleb- Synephrine 50 mcg/kg/min, vasopressin 0.04 international units CHEST: There is an anterior incision from pacemaker placement that is healed. No purulence. There is no erythema or warmth. There is a scar on lateral chest wall that is healed. The scar tissue is tender but there is no erythema or exudate. RESPIRATORY: On PRVC/AC. Air entry equal bilaterally coarse rhonchi no wheezes no crackles GASTROINTESTINAL: Abdomen soft, non-tender, nondistended. Bowel sounds present peer MUSCULOSKELETAL: 1+ bilateral lower extremity edema. NEUROLOGICAL: Awake and alert,on the vent. No obvious cranial nerve deficits. Motor grossly within normal limits. Follows commands x4 Assessment and Plan - Problem List (1) Hypotension Code(s): I95.9 - Hypotension, unspecified Status: Acute (2) CKD (chronic kidney disease) stage 3, GFR 30-59 ml/min Code(s): N18.3 - Chronic kidney disease, stage 3 (moderate) Status: Chronic (3) Symptomatic bradycardia Code(s): R00.1 - Bradycardia, unspecified Status: Acute (4) Acute hypokalemia Code(s): E87.6 - Hypokalemia Status: Acute (5) Chronic pain Code(s): G89.29 - Other chronic pain Status: Chronic (6) Medical non-compliance Code(s): Z91.19 - Patient's noncompliance with other medical treatment and regimen Status: Acute - Assessment and Plan Plan: NEURO: Possible seizures Chronic pain While intubated use Versed and fentanyl infusion keep RASS -2 Hold morphine 15 mg p.o. every 8 hours and hold Valium 10 mg p.o. every 8 hours , hold Daily sedation vacation EEG today. Seizure-like activity most likely secondary to decreased perfusion RESP: Acute hypoxemic respiratory failure PRVC/AC, Vent bundle, DuoNeb q6 and PRN Broad spectrum ABX as below Intubated yesterday 08/03/2018 for probable seizure and hemodynamic instability Acidosis has improved, continue to wean FiO2 as tolerated Sputum culture, chest x-ray today pending CV: Severe cardiogenic shock Symptomatic bradycardia with hypotension. AICD malfunction/probable dislodged pacemaker lead Lactic acidosis Brugada syndrome s/p AICD Due to profound cardiogenic shock and severe bradycardia patient was placed on maximum doses of epinephrine, Levophed, dopamine, Isuprel, and Caleb-Synephrine Temporary pacer followed by pacemaker lead revision yesterday by CVVH started 08/03 due to severe acidosis Currently improving hemodynamics off dopamine and Isuprel. Continue to wean to DC epinephrine and Caleb-Synephrine first Prior ICD pocket infection in December 2017 and February 2018. Most recently replaced 06/27/[address] Cervantes. Per device rep she did not follow-up for scheduled outpatient interrogation following device placement. Now interrogation shows pacemaker intermittently capturing per [employer] rep. Dr. Nowak discussed with cardiology who provided the above recommendations. Holding spironolactone 25 mg p.o. daily in view of hypotension. Status post extensive fluid resuscitation yesterday Essential hyper tension. Holding Norvasc GI: Crohn's disease Strict N.p.o. Change Protonix to IV States she is scheduled to follow-up with [facility] gastroenterology in the end of August Continue stress dose steroids CIRCULATOR: Menorrhagia, patient reports is a chronic problem. Hasn't followed up with gynecology in over a year. Endometriosis Beta hCG is negative. Hemoglobin is stable, can follow-up as an outpatient with gynecology. FEN/RENAL: Acute on chronic kidney disease with anuria Chronic kidney disease stage III Started on CVVH yesterday due to anuria and severe metabolic acidosis Continue CVVH now acidosis corrected, start fluid removal to facilitate ventilator weaning Nephrology Dr. Mart Patient states she has not had renal biopsy. She has been followed by nephrology at [facility]. Hypokalemia Received potassium 60 mEq IVPB ID: Shock probably combined cardiogenic and septic History of ICD pocket infection most recently with MRSA February 2018. She has undergone device removal on 2 prior occasions. Most recently was removed in February 2018 with wound VAC placement. Device replaced 06/27/18. She reports fever 102.7, however she is afebrile here. Provide empiric coverage with vancomycin and aztreonam. Flagyl added for anaerobic coverage Consult ID due to previous infections and severe leukocytosis(could be stress and steroid related) RHEUM: Systemic lupus erythematosus On chronic steroids On chronic prednisone 30 mg p.o. daily for >2 years. In view of shock will place on hydrocortisone 100 mill grams IV every 8 hours. Hold prednisone Scheduled to follow-up with [facility] rheumatology end of August. HEME: Chronic anemia Thrombocytopenia most likely secondary to DIC/sepsis Transfuse blood and blood products as needed follow-up hemoglobin given vaginal bleeding. ENDO: Hypothyroidism Continue Synthroid 112 mcg p.o. daily. Normal TSH. PROPH: SCDs for DVT prophylaxis. Hold pharmacologic DVT prophylaxis at this time due to recent invasive procedure, thrombocytopenia Protonix 40 mg IV daily for stress ulcer prophylaxis. ACCESS: New right IJ central line, right radial arterial line, right femoral Vas -Cath placed 08/03/18 Patient is critically ill with hypotension and bradycardia. Requires admission to ICU for close hemodynamic monitoring, vasopressor and chronotropic therapy, EP cardiology consultation. She is at high risk for further deterioration and . Discussed with Dr. Cervantes. Discussed with ED RN and TECHNICAL ASSISTANT. Full code Critical care time 80 minutes discontinuously exclusive of separately billable procedures. Patient remains extremely critical still requiring multiple pressors to maintain systolic blood pressure and map above 65, she remains anuric probably in severe sepsis also. Continue broad-spectrum antibiotic continue CVVH for acute renal failure and anuria. Prognosis remains guarded. Patient indicated full CODE STATUS I have changed alternate code to full code Code Status: FULL code now per patient wishes
[2018-08-04 07:16] LABS: Lymphocytes 4 % (9-44); Monocytes 7 % (0-8)
[2018-08-04 07:17] LABS: Platelet Morphology Normal (Normal); RBC Morphology Normal (Normal)
--- NOTE | 2018-08-04 07:46 | XR ---
EXAM DATE: 08/04/2018 7:04 AM EDT AGE/SEX: 42 years / Female INDICATIONS: Respiratory Disease. CLINICAL DATA: This is the patient's subsequent encounter. Patient reports that signs and symptoms h ave been present for 2 days and indicates a pain score of Nonresponsive. MEDICAL/SURGICAL HISTORY: Hypertension. Dialysis. Pacemaker. COMPARISON: [facility] [place] 1V SINGLE AP, 08/03/2018. . FINDINGS: Portable AP view of the chest demonstrates a normal-sized cardiac silhouette. There is a single lead left chest wall cardiac pacing device/AICD present. EKG lines overlie the patient. Right IJ line tip is in the right atrium and endotracheal tube tip is at the clavicular head level measuring approximat mynor 4.7 cm from the farhana. There is bibasilar pleural-parenchymal opacity with obscuration of the le ft hemidiaphragm. No pneumothorax is visualized. CONCLUSION: Bibasilar pleural-parenchymal opacity likely representing small pleural effusions with associated ate lectasis and/or airspace consolidation. The opacity at the left lung base has increased since roxie martínez's study. Electronically signed by: Brian Zhou MD 08/04/2018 7:45 AM EDT
[2018-08-04] MEDS: Aztreonam Inj 2 GM in Sodium Chloride 0.9% Inj 100 ML IV.SIG SCH ×2 (08:32→16:34)
[2018-08-04] MEDS: Pantoprazole Inj 40 MG Vial IV.PUSH SCH (08:51)
[2018-08-04] MEDS ORDERED: Dextrose 50% in Water 50 ML Vial IV.PUSH PRN (08:55)
[2018-08-04] MEDS: DOBUTamine 250 MG/250 ML Premx 250 MG/250 ML BAG IV.CONT SCH (09:37)
[2018-08-04] MEDS ORDERED: Propofol Inj 500 MG/50 ML Vial ONE (09:54)
[2018-08-04] MEDS: Propofol 1000 mg/100 ml Inj 1,000 MG/100 ML BOTTLE IV.CONT PRN ×3 (10:08→20:00)
[2018-08-04] MEDS: Senna/Docusate Sodium 8.6/50 MG Tablet PO SCH ×2 (10:21→20:01)
[2018-08-04] MEDS: Levothyroxine 112 MCG Tablet PO SCH (10:21)
[2018-08-04] MEDS ORDERED: Albumin Human 25% Inj 100 ML IV.SIG PRN (11:39)
[2018-08-04] MEDS ORDERED: Heparin 10,000 UNITS/10 ML Vial (for IV use) OTHER PRN (11:39)
[2018-08-04] MEDS ORDERED: Gelatin 12 MM/7 MM Topical Foam TOPICAL PRN (11:39)
[2018-08-04] MEDS ORDERED: Sod Chloride 0.9% Inj 1,000 ML OTHER PRN ×2 (11:39)
[2018-08-04] MEDS ORDERED: Acetaminophen 325 MG Tablet PO PRN (11:39)
[2018-08-04] MEDS ORDERED: Sod Chloride 0.9% Inj 1,000 ML IV.CONT PRN (11:39)
--- NOTE | 2018-08-04 11:39 | P.PNNP ---
Subjective Interval history: On ventilator with sedation. Hypotension has improved and pressors weaned. On CRRT with right femoral vas cath. <Cher Freeman - Last Filed: 08/04/18 11:25> Physical Exam Vital signs: Vital Signs 08/03/18 11:30 08/03/18 11:46 08/03/18 12:00 Temperature 95.5 F L Pulse Rate 79 79 85 Respiratory Rate 21 22 28 H Blood Pressure 98/47 L 88/44 L 99/50 L Pulse Oximetry 95 93 L 91 L 08/03/18 12:16 08/03/18 12:32 08/03/18 12:56 Temperature Pulse Rate 79 81 79 Respiratory Rate 25 H 33 H 27 H Blood Pressure 81/40 L 99/47 L 97/47 L Pulse Oximetry 94 L 92 L 93 L 08/03/18 13:00 08/03/18 13:01 08/03/18 13:24 Temperature Pulse Rate 79 79 80 Respiratory Rate 23 24 36 H Blood Pressure 92/46 L 110/51 L Pulse Oximetry 92 L 93 L 97 08/03/18 13:28 08/03/18 13:41 08/03/18 13:56 Temperature Pulse Rate 80 65 Respiratory Rate 16 19 46 H Blood Pressure 102/55 L 103/57 L Pulse Oximetry 100 94 L 88 L 08/03/18 14:00 08/03/18 14:01 08/03/18 14:10 Temperature Pulse Rate 59 L 59 L 60 Respiratory Rate 46 H 45 H 46 H Blood Pressure 105/54 L 98/51 L Pulse Oximetry 95 98 100 08/03/18 14:20 08/03/18 14:32 08/03/18 14:40 Temperature Pulse Rate 59 L 100 H Respiratory Rate 55 H 51 H Blood Pressure 104/55 L 103/58 L 107/64 Pulse Oximetry 99 08/03/18 14:48 08/03/18 14:50 08/03/18 15:04 Temperature Pulse Rate 100 H Respiratory Rate Blood Pressure 106/52 L Pulse Oximetry 95 08/03/18 16:00 08/03/18 16:28 08/03/18 16:36 Temperature 95.5 F L Pulse Rate 54 L 54 L Respiratory Rate 6 L 25 H Blood Pressure 97/47 L 115/58 L Pulse Oximetry 97 08/03/18 16:45 08/03/18 16:47 08/03/18 16:50 Temperature Pulse Rate 56 L 56 L 56 L Respiratory Rate 4 L Blood Pressure 92/47 L 95/46 L 93/44 L Pulse Oximetry 99 99 99 08/03/18 16:52 08/03/18 16:55 08/03/18 16:57 Temperature Pulse Rate 56 L 56 L 56 L Respiratory Rate 0 L 0 L 0 L Blood Pressure 95/45 L 92/46 L 91/45 L Pulse Oximetry 99 99 99 08/03/18 17:00 08/03/18 17:48 08/03/18 18:50 Temperature Pulse Rate 56 L 68 Respiratory Rate 0 L 24 Blood Pressure 92/44 L 86/41 L Pulse Oximetry 99 100 100 08/03/18 18:53 08/03/18 18:55 08/03/18 18:58 Temperature Pulse Rate 68 69 69 Respiratory Rate Blood Pressure 86/43 L 87/43 L 90/44 L Pulse Oximetry 100 99 100 08/03/18 19:00 08/03/18 19:02 08/03/18 19:05 Temperature Pulse Rate 70 70 70 Respiratory Rate 0 L Blood Pressure 87/45 L 87/44 L 87/44 L Pulse Oximetry 100 100 100 08/03/18 19:08 08/03/18 19:10 08/03/18 19:13 Temperature Pulse Rate 70 70 70 Respiratory Rate Blood Pressure 85/42 L 84/41 L 88/43 L Pulse Oximetry 100 100 99 08/03/18 19:15 08/03/18 19:18 08/03/18 19:20 Temperature Pulse Rate 70 70 70 Respiratory Rate Blood Pressure 85/42 L 87/43 L 85/43 L Pulse Oximetry 99 100 100 08/03/18 19:23 08/03/18 19:25 08/03/18 19:28 Temperature Pulse Rate 70 70 70 Respiratory Rate Blood Pressure 86/42 L 84/41 L 82/41 L Pulse Oximetry 100 100 100 08/03/18 19:30 08/03/18 19:33 08/03/18 19:35 Temperature Pulse Rate 70 70 70 Respiratory Rate Blood Pressure 87/42 L 92/44 L 90/44 L Pulse Oximetry 100 100 100 08/03/18 19:38 08/03/18 19:40 08/03/18 19:43 Temperature Pulse Rate 70 70 70 Respiratory Rate Blood Pressure 88/44 L 88/44 L 88/44 L Pulse Oximetry 100 100 100 08/03/18 19:45 08/03/18 19:48 08/03/18 20:00 Temperature Pulse Rate 70 70 72 Respiratory Rate Blood Pressure 91/45 L 90/45 L 98/54 L Pulse Oximetry 100 100 100 08/03/18 20:15 08/03/18 20:30 08/03/18 20:45 Temperature Pulse Rate 72 72 72 Respiratory Rate Blood Pressure 84/41 L 84/44 L 86/44 L Pulse Oximetry 100 100 100 08/03/18 21:00 08/03/18 21:15 08/03/18 21:30 Temperature Pulse Rate 73 73 73 Respiratory Rate Blood Pressure 85/45 L 87/46 L 86/47 L Pulse Oximetry 100 100 100 08/03/18 21:45 08/03/18 22:00 08/03/18 22:15 Temperature Pulse Rate 75 78 80 Respiratory Rate 24 Blood Pressure 93/50 L 101/51 L 108/54 L Pulse Oximetry 100 100 100 08/03/18 22:30 08/03/18 22:45 08/03/18 23:00 Temperature Pulse Rate 82 81 86 Respiratory Rate Blood Pressure 111/53 L 112/53 L 109/55 L Pulse Oximetry 100 97 97 08/03/18 23:15 08/03/18 23:30 08/03/18 23:45 Temperature Pulse Rate 87 91 H 92 H Respiratory Rate Blood Pressure 112/53 L 116/56 L 115/55 L Pulse Oximetry 98 97 97 08/04/18 00:00 08/04/18 00:15 08/04/18 00:30 Temperature 97.8 F Pulse Rate 92 H 94 H 93 H Respiratory Rate Blood Pressure 132/65 117/56 L 116/54 L Pulse Oximetry 99 97 97 08/04/18 00:45 08/04/18 01:00 08/04/18 01:11 Temperature Pulse Rate 90 83 Respiratory Rate 24 Blood Pressure 116/56 L 111/53 L Pulse Oximetry 95 94 L 93 L 08/04/18 01:15 08/04/18 01:30 08/04/18 01:45 Temperature Pulse Rate 75 73 86 Respiratory Rate Blood Pressure 104/55 L 103/55 L 120/56 L Pulse Oximetry 93 L 92 L 96 08/04/18 02:00 08/04/18 02:15 08/04/18 02:30 Temperature Pulse Rate 90 84 81 Respiratory Rate Blood Pressure 115/58 L 118/59 L 119/59 L Pulse Oximetry 97 98 99 08/04/18 02:45 08/04/18 03:00 08/04/18 03:15 Temperature Pulse Rate 81 79 71 Respiratory Rate Blood Pressure 119/60 122/64 108/57 L Pulse Oximetry 99 100 99 08/04/18 03:30 08/04/18 03:45 08/04/18 04:00 Temperature 98.9 F Pulse Rate 72 72 72 Respiratory Rate Blood Pressure 108/58 L 109/61 110/63 Pulse Oximetry 100 100 100 08/04/18 04:15 08/04/18 04:30 08/04/18 04:45 Temperature Pulse Rate 73 81 70 Respiratory Rate Blood Pressure 109/58 L 118/57 L 104/55 L Pulse Oximetry 97 100 100 08/04/18 04:55 08/04/18 05:00 08/04/18 05:15 Temperature Pulse Rate 68 68 Respiratory Rate 24 Blood Pressure 103/60 109/66 Pulse Oximetry 100 100 100 08/04/18 05:30 08/04/18 05:34 08/04/18 05:45 Temperature Pulse Rate 68 63 Respiratory Rate 25 H Blood Pressure 92/64 L 119/67 Pulse Oximetry 100 100 08/04/18 05:53 08/04/18 05:55 08/04/18 06:00 Temperature Pulse Rate 63 Respiratory Rate 18 22 Blood Pressure 116/68 Pulse Oximetry 100 100 08/04/18 06:24 08/04/18 06:30 08/04/18 06:45 Temperature Pulse Rate 66 66 67 Respiratory Rate Blood Pressure 126/68 124/67 121/68 Pulse Oximetry 100 100 100 08/04/18 07:00 08/04/18 07:15 08/04/18 07:30 Temperature Pulse Rate 65 66 67 Respiratory Rate Blood Pressure 123/63 125/66 128/63 Pulse Oximetry 99 94 L 95 08/04/18 07:45 08/04/18 08:00 08/04/18 08:15 Temperature 99.3 F Pulse Rate 62 58 L 58 L Respiratory Rate 16 Blood Pressure 123/68 122/70 118/73 Pulse Oximetry 95 93 L 97 08/04/18 08:16 08/04/18 08:30 08/04/18 08:45 Temperature Pulse Rate 65 56 L 54 L Respiratory Rate 16 Blood Pressure 112/69 105/67 Pulse Oximetry 97 96 08/04/18 09:00 08/04/18 09:15 08/04/18 09:30 Temperature Pulse Rate 58 L 62 58 L Respiratory Rate Blood Pressure 110/67 122/69 116/63 Pulse Oximetry 99 94 L 91 L 08/04/18 10:00 08/04/18 10:46 Temperature Pulse Rate 67 71 Respiratory Rate Blood Pressure 122/62 111/59 L Pulse Oximetry 85 L Intake & Output 08/03/18 08/04/18 08/04/18 18:59 06:59 18:59 Intake Total 5000 / 5000 55642.8 / 50795.8 4066 / 4066 Output Total 0 / 0 30 / 30 Balance 5000 / 5000 84813.8 / 42421.8 4066 / 4066 Weight 94 kg Intake: IV 10032.8 / 37853.8 4066 / 4066 Dobutrex Inj 1,000 MG In NS Inj 22.8 / 22.8 170 ML @ 2.5 MCG/KG/MIN 3.23 mls/hr IV.CONT .Q24H [facility] Rx#: [id number] DOPamine 400 MG/250 ML Premix 250 / 250 400 mg In 250 ml @ 0 mls/hr IV. CONT .STK-MED ONE Rx#:[id number] DOPamine 800 MG/500 ML Premix 448 / 448 800 mg In 500 ml @ 3 MCG/KG/MIN 9.696 mls/hr IV.CONT TITRATE PRN Rx#:[id number] EPINEPHrine (1:1000) Inj 4 MG 163 / 163 In NS Inj 246 ML @ 30 MCG/MIN 112.5 mls/hr IV.CONT TITRATE PRN Rx#:[id number] Isuprel Inj 2 MG In D5W Inj 250 130 / 130 ML @ 2 MCG/MIN 15.6 mls/hr IV. CONT TITRATE PRN Rx#:[id number] Versed Inj 50 mg In 50 ml @ 2 50 / 50 MG/HR 2 mls/hr IV.CONT TITRATE PRN Rx#:[id number] Levophed Inj 16 MG In D5W Inj 141 / 141 234 ML @ 44 MCG/MIN 41.25 mls/ hr IV.CONT TITRATE PRN Rx#: [id number] Neosynephrine Inj 40 MG In D5W 1000 / 1000 138 / 138 Inj 496 ML @ 100 MCG/MIN 75 mls /hr IV.CONT TITRATE PRN Rx#: [id number] NS Inj 1,000 ML @ 125 mls/hr IV 1000 / 1000 .CONT .Q8H [facility] Rx#:[id number] Sodium Bicarbonate 8.4% Inj 100 9900 / 9900 3300 / 3300 MEQ In 1/2 Normal Saline Inj 1 ,000 ML @ 1000 mls/hr IV.CONT . Q1H6M [facility] Rx#:[id number] Pitressin Inj 40 UNIT In D5W 24 / 24 Inj 98 ML @ 0.04 UNITS/MIN 6 mls/hr IV.CONT CONT [facility] Rx#: [id number] Flexbumin 25% Inj 100 ML @ 0 100 / 100 mls/hr IV.SIG .STK-MED ONE Rx#: [id number] Azactam Inj 1,000 MG In NS Inj 300 / 300 100 ML @ 200 mls/hr IV.SIG Q8H [facility] Rx#:[id number] Azactam Inj 2 GM In NS Inj 100 100 / 100 ML @ 200 mls/hr IV.SIG Q8H [facility] Rx#:[id number] Calcium Chloride Inj 2 GM In NS 120 / 120 Inj 100 ML @ 120 mls/hr IV.SIG ONCE ONE Rx#:[id number] Flagyl 500 MG Inj 100 ML @ 100 200 / 200 mls/hr IV.SIG Q8H [facility] Rx#: [id number] NS Inj 100 ML @ As Directed 400 / 400 200 / 200 OTHER Q2H [facility] Rx#:[id number] Other 5000 / 5000 Output: Urine Amount (Catheter) 0 / 0 30 / 30 Indwelling Urethral Catheter 0 / 0 30 / 30 Other: Other Intake Source Saline Solution Weight On Admission 86 kg Narrative: GENERAL: Intubated and sedated SKIN: Warm and dry. HEAD: Atraumatic. Normocephalic. NECK: Trachea midline. No JVD. CARDIOVASCULAR: regular, Murmur present. Pacemaker RESPIRATORY: Tachypneic but no accessory muscle use. Clear to auscultation bilaterally. GASTROINTESTINAL: Abdomen soft, non-tender, large. Positive Bowel sounds. MUSCULOSKELETAL: Extremities without clubbing, cyanosis. 1+ bilateral lower extremity edema. - Urinary Catheter Management Indwelling Urethral Catheter Cath placed during this visit: no Reason for continuing: Other continuation reason <Cher Freeman - Last Filed: 08/04/18 11:25> Vital signs: Vital Signs 08/04/18 12:00 08/04/18 13:00 08/04/18 14:00 Temperature 97.7 F Pulse Rate 74 71 65 Respiratory Rate Blood Pressure 121/64 98/55 L Pulse Oximetry 96 96 91 L 08/04/18 15:00 08/04/18 15:30 08/04/18 15:31 Temperature Pulse Rate 69 67 Respiratory Rate 14 Blood Pressure Pulse Oximetry 95 93 L 08/04/18 16:00 08/04/18 17:00 08/04/18 18:00 Temperature Pulse Rate 64 66 71 Respiratory Rate Blood Pressure 93/53 L 97/56 L Pulse Oximetry 90 L 93 L 95 08/04/18 19:00 08/04/18 20:00 08/04/18 20:53 Temperature 97.6 F Pulse Rate 74 71 73 Respiratory Rate 14 14 Blood Pressure 114/59 L Pulse Oximetry 94 L 93 L 08/04/18 20:57 08/04/18 21:00 08/04/18 22:00 Temperature Pulse Rate 72 73 Respiratory Rate 14 14 14 Blood Pressure 108/51 L 107/59 L Pulse Oximetry 93 L 92 L 93 L 08/04/18 23:00 08/04/18 23:42 08/05/18 00:00 Temperature 96.7 F L Pulse Rate 78 75 Respiratory Rate 14 14 14 Blood Pressure 107/54 L 106/58 L Pulse Oximetry 93 L 94 L 93 L 08/05/18 01:00 08/05/18 02:00 08/05/18 03:00 Temperature Pulse Rate 76 86 77 Respiratory Rate 14 14 14 Blood Pressure 101/56 L 117/66 91/67 L Pulse Oximetry 93 L 93 L 94 L 08/05/18 04:00 08/05/18 04:10 08/05/18 04:12 Temperature 96.9 F L Pulse Rate 85 87 Respiratory Rate 14 22 23 Blood Pressure 118/57 L Pulse Oximetry 94 L 94 L 08/05/18 05:00 08/05/18 06:00 08/05/18 07:00 Temperature Pulse Rate 82 84 79 Respiratory Rate 14 14 Blood Pressure 107/56 L 106/54 L Pulse Oximetry 96 96 95 08/05/18 07:57 08/05/18 08:00 08/05/18 08:38 Temperature 99.1 F Pulse Rate 84 87 Respiratory Rate 18 Blood Pressure 114/57 L Pulse Oximetry 95 95 08/05/18 08:45 08/05/18 09:00 08/05/18 09:01 Temperature Pulse Rate 90 88 Respiratory Rate Blood Pressure 117/62 Pulse Oximetry 91 L 92 L 92 L 08/05/18 09:04 08/05/18 09:15 08/05/18 09:30 Temperature Pulse Rate 87 87 86 Respiratory Rate 20 Blood Pressure 115/57 L 111/59 L Pulse Oximetry 100 91 L 08/05/18 09:45 08/05/18 10:00 08/05/18 10:15 Temperature Pulse Rate 85 85 81 Respiratory Rate Blood Pressure 115/59 L 107/57 L 106/55 L Pulse Oximetry 91 L 91 L 92 L Intake & Output 08/04/18 08/05/18 08/05/18 18:59 06:59 18:59 Intake Total 9451 / 9451 900 / 900 482 / 482 Output Total 3045 / 3045 150 / 150 Balance 6406 / 6406 750 / 750 482 / 482 Weight 94 kg 90 kg Intake: IV 9451 / 9451 900 / 900 482 / 482 DOPamine 800 MG/500 ML Premix 0 / 0 800 mg In 500 ml @ 3 MCG/KG/MIN 9.696 mls/hr IV.CONT TITRATE PRN Rx#:[id number] EPINEPHrine (1:1000) Inj 4 MG 163 / 163 In NS Inj 246 ML @ 30 MCG/MIN 112.5 mls/hr IV.CONT TITRATE PRN Rx#:[id number] Versed Inj 50 mg In 50 ml @ 2 100 / 100 50 / 50 40 / 40 MG/HR 2 mls/hr IV.CONT TITRATE PRN Rx#:[id number] Levophed Inj 16 MG In D5W Inj 141 / 141 0 / 0 234 ML @ 44 MCG/MIN 41.25 mls/ hr IV.CONT TITRATE PRN Rx#: [id number] Neosynephrine Inj 40 MG In D5W 138 / 138 112 / 112 Inj 496 ML @ 100 MCG/MIN 75 mls /hr IV.CONT TITRATE PRN Rx#: [id number] Diprivan 1000 mg/100 ml Inj 1, 100 / 100 200 / 200 80 / 80 000 mg In 100 ml @ 5 MCG/KG/MIN 2.585 mls/hr IV.CONT TITRATE PRN Rx#:[id number] Sodium Bicarbonate 8.4% Inj 100 7700 / 7700 MEQ In 1/2 Normal Saline Inj 1 ,000 ML @ 1000 mls/hr IV.CONT . Q1H6M [facility] Rx#:[id number] Pitressin Inj 40 UNIT In D5W 24 / 24 0 / 0 Inj 98 ML @ 0.04 UNITS/MIN 6 mls/hr IV.CONT CONT [facility] Rx#: [id number] Azactam Inj 2 GM In NS Inj 100 100 / 100 200 / 200 100 / 100 ML @ 200 mls/hr IV.SIG Q8H [facility] Rx#:[id number] KCl Inj 30 MEQ In NS Inj 100 ML 230 / 230 @ 38.333 mls/hr IV.SIG Q3H [facility] Rx#:[id number] fentaNYL 10 mcg/mL Premix Drip 250 / 250 250 / 250 150 / 150 2,500 mcg In 250 ml @ 50 MCG/HR 5 mls/hr IV.SIG TITRATE PRN Rx #:[id number] Flagyl 500 MG Inj 100 ML @ 100 105 / 105 200 / 200 mls/hr IV.SIG Q8H [facility] Rx#: [id number] NS Inj 100 ML @ As Directed 400 / 400 OTHER Q2H [facility] Rx#:[id number] Oral 0 / 0 Output: Hemodialysis Amount 3000 / 3000 Urine Amount (Catheter) 45 / 45 150 / 150 Indwelling Urethral Catheter 45 / 45 150 / 150 Other: # Bowel Movements 0 Weight On Admission 86 kg - Urinary Catheter Management Indwelling Urethral Catheter Cath placed during this visit: no <Slim Arrieta - Last Filed: 08/05/18 11:13> Assessment and Plan - Assessment (1) Acute kidney injury superimposed on CKD Code(s): N17.9 - Acute kidney failure, unspecified; N18.9 - Chronic kidney disease, unspecified Status: Acute Plan: Acute kidney injury with history of chronic kidney disease Started on CRRT as patient on multiple pressors, anuric, and severe metabolic acidosis. Right femoral vas cath Creatinine at 2.55 ->3.43 ->2.97 Anuric with urinary output of 30 ml overnight Plan Avoid nephrotoxins and dye studies Will follow urinary output and BMP Hypokalemia, potassium at 2.9, replacement ordered Will discontinue CRRT, acidosis improving, and do hemodialysis today removing fluid as tolerated Possible hemodialysis tomorrow will reassess in AM <Cher Freeman - Last Filed: 08/04/18 11:25> - Assessment (1) Acute kidney injury superimposed on CKD Code(s): N17.9 - Acute kidney failure, unspecified; N18.9 - Chronic kidney disease, unspecified Status: Acute Plan: Patient seen and examined, agree with above. BP is better, to stop CVVHD. Start HD, remove more fluid. Follow the urine out put and BMP. Weaning as per CCM. <Slim Arrieta - Last Filed: 08/05/18 11:13>
[2018-08-04] MEDS: Insulin NovoLOG Aspart Correctional Sugar Inj SQ SCH ×2 (12:02→17:38)
[2018-08-04 14:26] LABS: ABG Base Excess 9.8 mmol/L (-2-2); ABG PCO2 41 mmHg (38-42); ABG PO2 53 mmHG (61-120)
--- NOTE | 2018-08-04 15:04 | ECG ---
Date Performed: 08/04/2018 Time Performed: 07:24:38 PTAGE: 42 years EKG: --- Warning: Data quality may affect interpretation --- Undetermined rhythm. Possible anter ior infarct - age undetermined Inferior/lateral ST-T changes are nonspecific Abnormal ECG Compared to prior electrocardiogram, prior electrocardiogram had paced rhythm. DOCTOR: Shine Galvan Interpretating Date/Time 08/04/2018 15:02:08
[2018-08-04 15:07] LABS: Hematocrit 25.9 % (35.0-46.0); Hemoglobin 8.4 gm/dL (11.6-15.3); Mean Corpuscular HGB Conc 32.6 % (32.0-36.0); Mean Corpuscular Hemoglobin 28.2 pg (27.0-34.0); Mean Corpuscular Volume 86.5 fL (80.0-100.0); Mean Platelet Volume 8.1 fL (7.0-11.0); Platelet Count 52 th/mm3 (150-450); Red Cell Distribution Width 14.7 % (11.6-17.2); White Blood Count 39.3 th/mm3 (4.0-11.0)
[2018-08-04 15:18] LABS: Activated Partial Thrombo Time 29.2 sec (24.3-30.1); INR 1.8 Ratio; Prothrombin Time 18.7 sec (9.8-11.6)
--- NOTE | 2018-08-04 15:49 | P.CONID ---
History of Present Illness Service: ID Consult date: 08/04/18 Requesting Physician: Pedro Torres Reason for Consult: sepsis, leukocytosis Primary Care Provider: No Primary Care Physician Chief Complaint: Weakness, bradycardia History of Present Illness: 42 yo F with complicated past med hx: systemic lupus erythematosus, Crohn's disease, hypothyroidism, endometriosis, gastroparesis, chronic kidney disease stage III, interstitial cystitis, Brugada syndrome with ICD replaced 06/27/[address] Cervantes. (original device placed 10/03/17). 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 She presetned by EVAC with heart rate 30s to 40s. Upon arrival she had ventricular paced rhythm at a rate of 40 and her blood pressure was 78/35. Transcutaneous pacer was placed with backup rate of 60. Her pacemaker was interrogated and was noted to be intermittently capturing. She states yesterday she had a temp 102.7. Pt remained in profound cardiogenic shock as transcutaneous pacer was not capturing , she developped seizues, was intubated and placed on vent , was on multiple maxed out pressors She has temporary transvenious pacer emergently followed by pacemaker lead revision yesterday by y and after the procedure she started to improve clinically SHe is off pressors except of dobutamine Lactic acid improved from 14 down to 4 SHe remians on vent SHe is in anuric ARF and requires HD. Vascath was placed Bedside 2 D echo showed EF of 55% and tricuspid valve vegetaion around 1-1.5 cm Her WBC went into 40s from normal on presentation; Today down to 39K from 42 K blood clx neg @ 1 day (2/2 bottles, 2/2 sets) Urine clx cw contamination Sputum is not obtained yet 2/2 lack of secretions Afebrile FLu test negative Pt was started on broad spectrum abx by Dr Torres (vancomycin, azactam, Flagyl) Review of Systems unobtainable due to endotracheal tube, unobtainable due to mental status PMFSH - History History 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 - Medical History Medical History: Medical History (Last Reviewed 08/04/18 @ 15:31 by Shawna Levy MD) CKD (chronic kidney disease) stage 3, GFR 30-59 ml/min Gastroparesis Anxiety Brugada syndrome Crohn's disease Endometriosis Esophagitis Gastroparesis Hypokalemia Hypothyroidism Interstitial cystitis Lupus PTSD (post-traumatic stress disorder) - Surgical History Surgical History: Surgical History (Last Reviewed 08/04/18 @ 15:31 by Shawna Levy MD) History of laparoscopy Hx of colonoscopy Hx of cystoscopy Hx of esophagogastroduodenoscopy AICD (automatic cardioverter/defibrillator) present History of appendectomy - Family History Family History: Family History (Last Reviewed 08/04/18 @ 15:31 by Shawna Levy MD) Mother Prinzmetal angina Breast cancer - Social History I have reviewed the patient's Social History: Yes - Tobacco History Second Hand Smoke Exposure: No Smoking Status: Never smoker - Alcohol History How Often Do You Have a Drink Containing Alcohol: Never - Substance Use History Substance History: No History of Abuse - Travel History History of Recent Travel: No - Immunization History Tetanus Immunization: <5 Years Hx Influenza Vaccine This Season: No Medications and Allergies Active Medications: Active Medications Acetaminophen (Tylenol) 650 mg PO Q6H PRN PRN Reason: PAIN 1-10 AND/OR FEVER >101F Acetaminophen (Tylenol) 650 mg PO UNSCH PRN PRN Reason: SEE LABEL COMMENTS Albuterol (Albuterol Neb (Prn)) 2.5 mg NEB Q2HR NEB PRN PRN Reason: SHORTNESS OF BREATH/WHEEZING Albuterol (Duoneb Neb ([place])) 1 ampul NEB Q6HR NEB [facility] Last Admin: 08/04/18 08:16 Dose: 1 ampul Bisacodyl (Dulcolax Supp) 10 mg RECTAL DAILY PRN PRN Reason: SEVERE CONSITIPATION Chlorhexidine Gluconate (Chlorhexidine 2% Cloth) 3 pack TOPICAL DAILY@0400 [facility] Stop: 08/09/18 03:59 Last Admin: 08/04/18 03:12 Dose: 3 pack Chlorhexidine Gluconate (Chlorhexidine 2% Cloth) 3 pack TOPICAL DAILY@0400 PRN PRN Reason: Extra cloth needed Stop: 08/09/18 03:59 Clonidine HCl (Catapres) 0.1 mg PO UNSCH PRN PRN Reason: SEE LABEL COMMENTS Dextrose (D50w Vial) 50 ml IV.PUSH UNSCH PRN PRN Reason: PER HYPOGLYCEMIA PROTOCOL Diazepam (Valium) 10 mg PO Q8H PRN PRN Reason: anxiety Diphenhydramine HCl (Benadryl) 25 mg PO UNSCH PRN PRN Reason: SEE LABEL COMMENTS Gelatin (Gelfoam 12 Mm/7 Mm Topical) 1 foam TOPICAL PRN PRN PRN Reason: help stop bleeding from site Gentamicin Sulfate (Gentamicin Inj) 20 mg OTHER WITH DIALYSIS PRN PRN Reason: Dwell Gentamycin Lock Glucagon (Glucagon Inj) 1 mg OTHER PRN PRN PRN Reason: for Hypoglycemia Protocol Heparin Sodium (Porcine) (Heparin Inj) 8,000 units OTHER WITH DIALYSIS PRN PRN Reason: for machine prime Heparin Sodium (Porcine) (Heparin Inj) 1,000 units OTHER WITH DIALYSIS PRN PRN Reason: Dwell Heparin to Fill Catheter Hydrocortisone Sodium Succinate (Solucortef Inj) 100 mg IV.PUSH Q8HR [facility] Last Admin: 08/04/18 13:36 Dose: 100 mg Dopamine HCl/Dextrose (Dopamine 800 Mg/500 Ml Premix) 800 mg in 500 mls @ 9.696 mls/hr IV.CONT TITRATE PRN; Protocol PRN Reason: Per Protocol Last Titration: 08/04/18 06:36 Dose: Infused Sodium Chloride (Ns Inj) 1,000 mls @ 84 mls/hr IV.CONT .[id number] [facility] Last Admin: 08/04/18 04:27 Dose: Not Given Phenylephrine HCl 40 mg/ (Dextrose) 500 mls @ 75 mls/hr IV.CONT TITRATE PRN; Protocol PRN Reason: Per Protocol Last Titration: 08/04/18 08:41 Dose: 0 mcg/min, 0 mls/hr Metronidazole/Sodium Chloride (Flagyl 500 Mg Inj) 100 mls @ 100 mls/hr IV.SIG Q8H [facility] Last Infusion: 08/04/18 11:33 Dose: Infused Vasopressin 40 unit/ Dextrose 100 mls @ 6 mls/hr IV.CONT CONT [facility]; Protocol Last Infusion: 08/04/18 09:33 Dose: 0 units/min, 0 mls/hr Norepinephrine Bitartrate 16 (mg/ Dextrose) 250 mls @ 41.25 mls/hr IV.CONT TITRATE PRN; Protocol PRN Reason: See Protocol Last Titration: 08/04/18 10:09 Dose: 0 mcg/min, 0 mls/hr Protamine Sulfate 250 mg/ (Sodium Chloride) 250 mls @ 5 mls/hr IV.CONT TITRATE PRN; Protocol PRN Reason: REGIONAL HEPARINIZATION Heparin Sodium/Dextrose (Heparin/D5w 25,000 U/250 Ml) 25,000 unit in 250 mls @ 5 mls/hr IV.CONT TITRATE PRN; Protocol PRN Reason: REGIONAL HEPARINIZATION Sodium Chloride (Ns Inj) 100 mls @ 0 mls/hr OTHER Q2H [facility] Last Infusion: 08/04/18 13:05 Dose: Infused Midazolam HCl (Versed Inj) 50 mg in 50 mls @ 2 mls/hr IV.CONT TITRATE PRN; Protocol PRN Reason: Per Protocol Last Titration: 08/04/18 13:11 Dose: 6 mg/hr, 6 mls/hr Fentanyl (Fentanyl 10 Mcg/Ml Premix Drip) 2,500 mcg in 250 mls @ 5 mls/hr IV.SIG TITRATE PRN; Protocol PRN Reason: Per Protocol Last Titration: 08/04/18 09:31 Dose: 250 mcg/hr, 25 mls/hr Aztreonam 2 gm/ Sodium (Chloride) 100 mls @ 200 mls/hr IV.SIG Q8H [facility] Last Infusion: 08/04/18 09:02 Dose: Infused Dobutamine HCl/Dextrose (Dobutamine 250 Mg/250 Ml Premix) 250 mg in 250 mls @ 12.927 mls/hr IV.CONT .[id number] [facility] Last Infusion: 08/04/18 13:05 Dose: 2.5 mcg/kg/min, 12.93 mls/hr Propofol (Diprivan 1000 Mg/100 Ml Inj) 1,000 mg in 100 mls @ 2.585 mls/hr IV.CONT TITRATE PRN; Protocol PRN Reason: Per Protocol Last Admin: 08/04/18 13:36 Dose: 25 mcg/kg/min, 12.93 mls/hr Sodium Bicarbonate 100 meq/ (Sodium Chloride) 1,100 mls @ 500 mls/hr IV.CONT .Q2H12M [facility] Last Infusion: 08/04/18 15:01 Dose: Infused Albumin Human (Flexbumin 25% Inj) 100 mls @ 60 mls/hr IV.SIG WITH DIALYSIS PRN PRN Reason: hypotension / volume replace Sodium Chloride (Ns Inj) 1,000 mls @ 200 mls/hr OTHER .Q5H PRN PRN Reason: for dialyzer flush PRN Sodium Chloride (Ns Inj) 1,000 mls @ 0 mls/hr IV.CONT .Q0M PRN PRN Reason: hypotension / volume replace Sodium Chloride (Ns Inj) 1,000 mls @ 0 mls/hr OTHER .Q0M PRN PRN Reason: for prime and rinse back Insulin Aspart (Novolog Insulin Correctional Sugar Inj) 0 unit SQ Q6HR [facility]; Protocol Last Admin: 08/04/18 12:02 Dose: Not Given Lactulose (Lactulose Liq) 30 ml PO DAILY PRN PRN Reason: SEVERE CONSITIPATION Levothyroxine Sodium (Synthroid) 112 mcg PO DAILY [facility] Last Admin: 08/04/18 10:21 Dose: Not Given Levothyroxine Sodium (Synthroid Inj) 75 mcg IV.PUSH DAILY@0600 [facility] Last Admin: 08/04/18 15:08 Dose: 75 mcg Magnesium Oxide (Mag-Ox) 800 mg PO UNSCH PRN PRN Reason: For Magnesium 1.2 - 1.6 mg/dL Mannitol (Mannitol Inj) 12.5 gm IV.PUSH UNSCH PRN PRN Reason: hypotension / volume replace Miscellaneous Information (Misc Nursing Information) 1 each OTHER [facility] Morphine Sulfate (Msir) 15 mg PO Q8HR PRN PRN Reason: Acute Pain Last Admin: 08/03/18 06:02 Dose: 15 mg Nitroglycerin (Nitrostat Sl) 0.4 mg SL Q5M PRN PRN Reason: CHEST PAIN Ondansetron HCl (Zofran Inj) 4 mg IV.PUSH Q6H PRN PRN Reason: NAUSEA OR VOMITING Last Admin: 08/03/18 12:10 Dose: 4 mg Ondansetron HCl (Zofran Inj) 4 mg IV.PUSH UNSCH PRN PRN Reason: NAUSEA OR VOMITING Pantoprazole Sodium (Protonix Inj) 40 mg IV.PUSH Q24H [facility] Last Admin: 08/04/18 08:51 Dose: 40 mg Pharmacy Profile Note (Vancomycin Consult Pharmacy) 1 each OTHER UNSCH PRN PRN Reason: Pharmacy to dose Senna/Docusate Sodium (Irais-Colace) 1 tab PO BID [facility] Last Admin: 08/04/18 10:21 Dose: Not Given Sennosides (Senokot) 17.2 mg PO Q12H PRN PRN Reason: Moderate Constipation Sodium Chloride (Ns Flush) 2 ml IV.FLUSH BID [facility] Last Admin: 08/04/18 10:36 Dose: 2 ml Sodium Chloride (Ns Flush) 2 ml IV.FLUSH PRN PRN PRN Reason: FLUSH AFTER USING IV ACCESS Sodium Chloride (Ns Flush) 5 ml IV.FLUSH PRN PRN PRN Reason: flush each lumen during HD Terbutaline Sulfate (Brethine Inj) 1 mg SQ UNSCH PRN PRN Reason: For Extravasation Terbutaline Sulfate (Brethine Inj) 1 mg SQ UNSCH PRN PRN Reason: For Extravasation Allergies Allergy/AdvReac Type Severity Reaction Status Date / Time cephalexin Allergy Severe RASH,SWELLI Verified 07/13/18 17:57 NG Fish Containing Products Allergy Severe SWELLING Verified 07/13/18 17:57 IN THROAT, SOB ketorolac Allergy Severe RASH Verified 07/13/18 17:57 penicillin G Allergy Severe RASH,SWELLI Verified 07/13/18 17:57 NG prochlorperazine Allergy Mild DYSTONIC Verified 07/13/18 17:57 REACTION promethazine Allergy Mild DYSTONIC Verified 07/13/18 17:57 REACTION Home Medications Medication Instructions Recorded Confirmed Type levothyroxine [Synthroid] 112 mcg PO DAILY 05/08/18 07/24/18 History magnesium 100 mg PO QID 05/08/18 07/24/18 History pantoprazole [Protonix] 40 mg PO DAILY 05/08/18 07/24/18 History potassium chloride 40 meq PO TID 05/08/18 07/24/18 History potassium phosphate, monobasic 1,000 mg PO TID 05/08/18 07/24/18 History [K-Phos Original] prednisone 30 mg PO DAILY 05/08/18 07/24/18 History spironolactone 25 mg PO DAILY 05/08/18 07/24/18 History Exam Vital signs: Vital Signs 08/03/18 16:00 08/03/18 16:28 08/03/18 16:36 Temperature 95.5 F L Pulse Rate 54 L 54 L Respiratory Rate 6 L 25 H Blood Pressure 97/47 L 115/58 L Pulse Oximetry 97 08/03/18 16:45 08/03/18 16:47 08/03/18 16:50 Temperature Pulse Rate 56 L 56 L 56 L Respiratory Rate 4 L Blood Pressure 92/47 L 95/46 L 93/44 L Pulse Oximetry 99 99 99 08/03/18 16:52 08/03/18 16:55 08/03/18 16:57 Temperature Pulse Rate 56 L 56 L 56 L Respiratory Rate 0 L 0 L 0 L Blood Pressure 95/45 L 92/46 L 91/45 L Pulse Oximetry 99 99 99 08/03/18 17:00 08/03/18 17:48 08/03/18 18:50 Temperature Pulse Rate 56 L 68 Respiratory Rate 0 L 24 Blood Pressure 92/44 L 86/41 L Pulse Oximetry 99 100 100 08/03/18 18:53 08/03/18 18:55 08/03/18 18:58 Temperature Pulse Rate 68 69 69 Respiratory Rate Blood Pressure 86/43 L 87/43 L 90/44 L Pulse Oximetry 100 99 100 08/03/18 19:00 08/03/18 19:02 08/03/18 19:05 Temperature Pulse Rate 70 70 70 Respiratory Rate 0 L Blood Pressure 87/45 L 87/44 L 87/44 L Pulse Oximetry 100 100 100 08/03/18 19:08 08/03/18 19:10 08/03/18 19:13 Temperature Pulse Rate 70 70 70 Respiratory Rate Blood Pressure 85/42 L 84/41 L 88/43 L Pulse Oximetry 100 100 99 08/03/18 19:15 08/03/18 19:18 08/03/18 19:20 Temperature Pulse Rate 70 70 70 Respiratory Rate Blood Pressure 85/42 L 87/43 L 85/43 L Pulse Oximetry 99 100 100 08/03/18 19:23 08/03/18 19:25 08/03/18 19:28 Temperature Pulse Rate 70 70 70 Respiratory Rate Blood Pressure 86/42 L 84/41 L 82/41 L Pulse Oximetry 100 100 100 08/03/18 19:30 08/03/18 19:33 08/03/18 19:35 Temperature Pulse Rate 70 70 70 Respiratory Rate Blood Pressure 87/42 L 92/44 L 90/44 L Pulse Oximetry 100 100 100 08/03/18 19:38 08/03/18 19:40 08/03/18 19:43 Temperature Pulse Rate 70 70 70 Respiratory Rate Blood Pressure 88/44 L 88/44 L 88/44 L Pulse Oximetry 100 100 100 08/03/18 19:45 08/03/18 19:48 08/03/18 20:00 Temperature Pulse Rate 70 70 72 Respiratory Rate Blood Pressure 91/45 L 90/45 L 98/54 L Pulse Oximetry 100 100 100 08/03/18 20:15 08/03/18 20:30 08/03/18 20:45 Temperature Pulse Rate 72 72 72 Respiratory Rate Blood Pressure 84/41 L 84/44 L 86/44 L Pulse Oximetry 100 100 100 08/03/18 21:00 08/03/18 21:15 08/03/18 21:30 Temperature Pulse Rate 73 73 73 Respiratory Rate Blood Pressure 85/45 L 87/46 L 86/47 L Pulse Oximetry 100 100 100 08/03/18 21:45 08/03/18 22:00 08/03/18 22:15 Temperature Pulse Rate 75 78 80 Respiratory Rate 24 Blood Pressure 93/50 L 101/51 L 108/54 L Pulse Oximetry 100 100 100 08/03/18 22:30 08/03/18 22:45 08/03/18 23:00 Temperature Pulse Rate 82 81 86 Respiratory Rate Blood Pressure 111/53 L 112/53 L 109/55 L Pulse Oximetry 100 97 97 08/03/18 23:15 08/03/18 23:30 08/03/18 23:45 Temperature Pulse Rate 87 91 H 92 H Respiratory Rate Blood Pressure 112/53 L 116/56 L 115/55 L Pulse Oximetry 98 97 97 08/04/18 00:00 08/04/18 00:15 08/04/18 00:30 Temperature 97.8 F Pulse Rate 92 H 94 H 93 H Respiratory Rate Blood Pressure 132/65 117/56 L 116/54 L Pulse Oximetry 99 97 97 08/04/18 00:45 08/04/18 01:00 08/04/18 01:11 Temperature Pulse Rate 90 83 Respiratory Rate 24 Blood Pressure 116/56 L 111/53 L Pulse Oximetry 95 94 L 93 L 08/04/18 01:15 08/04/18 01:30 08/04/18 01:45 Temperature Pulse Rate 75 73 86 Respiratory Rate Blood Pressure 104/55 L 103/55 L 120/56 L Pulse Oximetry 93 L 92 L 96 08/04/18 02:00 08/04/18 02:15 08/04/18 02:30 Temperature Pulse Rate 90 84 81 Respiratory Rate Blood Pressure 115/58 L 118/59 L 119/59 L Pulse Oximetry 97 98 99 08/04/18 02:45 08/04/18 03:00 08/04/18 03:15 Temperature Pulse Rate 81 79 71 Respiratory Rate Blood Pressure 119/60 122/64 108/57 L Pulse Oximetry 99 100 99 08/04/18 03:30 08/04/18 03:45 08/04/18 04:00 Temperature 98.9 F Pulse Rate 72 72 72 Respiratory Rate Blood Pressure 108/58 L 109/61 110/63 Pulse Oximetry 100 100 100 08/04/18 04:15 08/04/18 04:30 08/04/18 04:45 Temperature Pulse Rate 73 81 70 Respiratory Rate Blood Pressure 109/58 L 118/57 L 104/55 L Pulse Oximetry 97 100 100 08/04/18 04:55 08/04/18 05:00 08/04/18 05:15 Temperature Pulse Rate 68 68 Respiratory Rate 24 Blood Pressure 103/60 109/66 Pulse Oximetry 100 100 100 08/04/18 05:30 08/04/18 05:34 08/04/18 05:45 Temperature Pulse Rate 68 63 Respiratory Rate 25 H Blood Pressure 92/64 L 119/67 Pulse Oximetry 100 100 08/04/18 05:53 08/04/18 05:55 08/04/18 06:00 Temperature Pulse Rate 63 Respiratory Rate 18 22 Blood Pressure 116/68 Pulse Oximetry 100 100 08/04/18 06:24 08/04/18 06:30 08/04/18 06:45 Temperature Pulse Rate 66 66 67 Respiratory Rate Blood Pressure 126/68 124/67 121/68 Pulse Oximetry 100 100 100 08/04/18 07:00 08/04/18 07:15 08/04/18 07:30 Temperature Pulse Rate 65 66 67 Respiratory Rate Blood Pressure 123/63 125/66 128/63 Pulse Oximetry 99 94 L 95 08/04/18 07:45 08/04/18 08:00 08/04/18 08:15 Temperature 99.3 F Pulse Rate 62 58 L 58 L Respiratory Rate 16 Blood Pressure 123/68 122/70 118/73 Pulse Oximetry 95 93 L 97 08/04/18 08:16 08/04/18 08:30 08/04/18 08:45 Temperature Pulse Rate 65 56 L 54 L Respiratory Rate 16 Blood Pressure 112/69 105/67 Pulse Oximetry 97 96 08/04/18 09:00 08/04/18 09:15 08/04/18 09:30 Temperature Pulse Rate 58 L 62 58 L Respiratory Rate Blood Pressure 110/67 122/69 116/63 Pulse Oximetry 99 94 L 91 L 08/04/18 10:00 08/04/18 10:46 08/04/18 11:00 Temperature Pulse Rate 67 71 67 Respiratory Rate Blood Pressure 122/62 111/59 L Pulse Oximetry 85 L 95 08/04/18 12:00 08/04/18 14:00 Temperature 97.7 F Pulse Rate 74 75 Respiratory Rate Blood Pressure 121/64 Pulse Oximetry 96 Intake & Output 08/03/18 08/04/18 08/04/18 18:59 06:59 18:59 Intake Total 5000 / 5000 04791.8 / 63188.8 8051 / 8051 Output Total 0 / 0 30 / 30 Balance 5000 / 5000 46143.8 / 19800.8 8051 / 8051 Weight 94 kg Intake: [place] 69817.8 / 87355.8 8051 / 8051 Dobutrex Inj 1,000 MG In NS Inj 22.8 / 22.8 170 ML @ 2.5 MCG/KG/MIN 3.23 mls/hr IV.CONT .Q24H [facility] Rx#: [id number] DOPamine 400 MG/250 ML Premix 250 / 250 400 mg In 250 ml @ 0 mls/hr IV. CONT .STK-MED ONE Rx#:[id number] DOPamine 800 MG/500 ML Premix 448 / 448 800 mg In 500 ml @ 3 MCG/KG/MIN 9.696 mls/hr IV.CONT TITRATE PRN Rx#:[id number] EPINEPHrine (1:1000) Inj 4 MG 163 / 163 In NS Inj 246 ML @ 30 MCG/MIN 112.5 mls/hr IV.CONT TITRATE PRN Rx#:[id number] Isuprel Inj 2 MG In D5W Inj 250 130 / 130 ML @ 2 MCG/MIN 15.6 mls/hr IV. CONT TITRATE PRN Rx#:[id number] Versed Inj 50 mg In 50 ml @ 2 50 / 50 50 / 50 MG/HR 2 mls/hr IV.CONT TITRATE PRN Rx#:[id number] Levophed Inj 16 MG In D5W Inj 141 / 141 234 ML @ 44 MCG/MIN 41.25 mls/ hr IV.CONT TITRATE PRN Rx#: [id number] Neosynephrine Inj 40 MG In D5W 1000 / 1000 138 / 138 Inj 496 ML @ 100 MCG/MIN 75 mls /hr IV.CONT TITRATE PRN Rx#: [id number] Diprivan 1000 mg/100 ml Inj 1, 100 / 100 000 mg In 100 ml @ 5 MCG/KG/MIN 2.585 mls/hr IV.CONT TITRATE PRN Rx#:[id number] NS Inj 1,000 ML @ 125 mls/hr IV 1000 / 1000 .CONT .Q8H [facility] Rx#:[id number] Sodium Bicarbonate 8.4% Inj 100 9900 / 9900 6600 / 6600 MEQ In 1/2 Normal Saline Inj 1 ,000 ML @ 1000 mls/hr IV.CONT . Q1H6M [facility] Rx#:[id number] Pitressin Inj 40 UNIT In D5W 24 / 24 Inj 98 ML @ 0.04 UNITS/MIN 6 mls/hr IV.CONT CONT [facility] Rx#: [id number] Flexbumin 25% Inj 100 ML @ 0 100 / 100 mls/hr IV.SIG .STK-MED ONE Rx#: [id number] Azactam Inj 1,000 MG In NS Inj 300 / 300 100 ML @ 200 mls/hr IV.SIG Q8H [facility] Rx#:[id number] Azactam Inj 2 GM In NS Inj 100 100 / 100 ML @ 200 mls/hr IV.SIG Q8H [facility] Rx#:[id number] Calcium Chloride Inj 2 GM In NS 120 / 120 Inj 100 ML @ 120 mls/hr IV.SIG ONCE ONE Rx#:[id number] KCl Inj 30 MEQ In NS Inj 100 ML 230 / 230 @ 38.333 mls/hr IV.SIG Q3H [facility] Rx#:[id number] Flagyl 500 MG Inj 100 ML @ 100 200 / 200 105 / 105 mls/hr IV.SIG Q8H [facility] Rx#: [id number] NS Inj 100 ML @ As Directed 400 / 400 400 / 400 OTHER Q2H [facility] Rx#:[id number] Other 5000 / 5000 Output: Urine Amount (Catheter) 0 0 Indwelling Urethral Catheter 0 0 Other: Other Intake Source Saline Solution Weight On Admission 86 kg - Constitutional obese Comments: sedated heavily, intubated, on vent - Routine HEENT Exam Head: Present: normocephalic, atraumatic Eye: Present: EOMI, PERRL, conjunctivae pink. Absent: conjunctival icterus, scleral injection ENT: Present: mucous membranes moist, oropharynx clear - Routine Neck Exam Present: supple. Absent: JVD, tracheal deviation - Routine Chest/Breast/Axilla Exam Comments: L side chest dressing in place - Routine Respiratory Exam Present: patient mechanically ventilated, CTA bilaterally. Absent: rales - Routine Cardiovascular Exam Present: RRR, S1, S2. Absent: murmur, gallop, rubs - Routine Abdominal Exam Present: soft, distended. Absent: firm, rigid, organomegaly, mass - Routine Extremities Exam Present: edema (trace). Absent: cyanosis, clubbing - Routine Skin Exam Present: normal turgor. Absent: cyanosis, erythema, rash - Routine Neurological Exam heavily sedated, unresponsive, not follows commands - Routine Psychiatric Exam Present: unable to assess Results - Labs CBC & Chem 7: 08/04/18 14:40 08/04/18 03:55 Labs: Laboratory Results - last 24 hr 08/03/18 08/03/18 08/03/18 15:44 15:45 16:47 WBC RBC Hgb Hct MCV MCH MCHC RDW Plt Count MPV Prelim Diff (Auto) Neut % (Auto) Lymph % (Auto) [place] % (Auto) Eos % (Auto) Baso % (Auto) Neut # (Auto) Lymph # (Auto) [place] # (Auto) Eos # (Auto) Baso # (Auto) WBC Differential Seg Neuts % (Manual) Band Neuts % (Manual) Lymphocytes % (Manual) Monocytes % (Manual) Abs Neuts (Manual) Differential Comment Platelet Estimate Platelet Morphology RBC Morphology PT INR APTT Puncture Site Art line Art line Patient Temperature 98.6 98.6 O2 Saturation 89 L* 93 ABG pH 7.14 L* 7.19 L* ABG pCO2 41 31 L ABG pO2 75 89 ABG HCO3 13 L* 11 L* ABG O2 Content 11.9 L 11.1 L ABG Base Excess -13.9 L -15.2 L ABG Methemoglobin 1.4 1.4 Emile Test Present VBG pH VBG pCO2 VBG pO2 VBG HCO3 VBG O2 Saturation VBG O2 Content VBG Base Excess VBG Carboxyhemoglobin VBG Methemoglobin Hemoglobin 9.4 L 8.4 L Carboxyhemoglobin 0.6 0.6 O2 Delivery Device Ventilator Ventilator Vent Setting photographic laboratory technician settings Prvc/ac Inspired O2 100 100 Critical Value Yes Yes Sodium Potassium Chloride Carbon Dioxide Anion Gap BUN Creatinine Estimated GFR POC Glucose Random Glucose Lactic Acid 14.8 H* Calcium Magnesium Total Bilirubin AST ALT Alkaline Phosphatase Total Protein Albumin Random Vancomycin 08/03/18 08/03/18 08/03/18 16:50 16:50 17:10 WBC 35.1 H D RBC 3.17 L Hgb 9.4 L Hct 28.5 L MCV 90.1 MCH 29.7 MCHC 33.0 RDW 14.3 Plt Count 229 MPV 8.0 Prelim Diff (Auto) Neut % (Auto) Lymph % (Auto) [place] % (Auto) Eos % (Auto) Baso % (Auto) Neut # (Auto) Lymph # (Auto) [place] # (Auto) Eos # (Auto) Baso # (Auto) WBC Differential Seg Neuts % (Manual) Band Neuts % (Manual) Lymphocytes % (Manual) Monocytes % (Manual) Abs Neuts (Manual) Differential Comment Platelet Estimate Platelet Morphology RBC Morphology PT INR APTT Puncture Site Central line Patient Temperature 98.6 O2 Saturation ABG pH ABG pCO2 ABG pO2 ABG HCO3 ABG O2 Content ABG Base Excess ABG Methemoglobin Emile Test VBG pH 7.14 L* VBG pCO2 40 L VBG pO2 54 H VBG HCO3 13 L* VBG O2 Saturation 77 H VBG O2 Content 10.3 VBG Base Excess -14.4 L VBG Carboxyhemoglobin 0.5 VBG Methemoglobin 1.5 Hemoglobin 9.5 L Carboxyhemoglobin O2 Delivery Device Ventilator Vent Setting Prvc/ac Inspired O2 100 Critical Value Yes Sodium 150 H D Potassium 2.9 L* Chloride 109 H Carbon Dioxide 13.7 L Anion Gap 27 H BUN 23 H Creatinine 3.43 H Estimated GFR 15 L POC Glucose Random Glucose 276 H D Lactic Acid Calcium 7.6 L Magnesium 1.6 Total Bilirubin 0.5 AST 83 H ALT 46 Alkaline Phosphatase 47 Total Protein 3.8 L D Albumin 1.8 L D Random Vancomycin 08/03/18 08/03/18 08/03/18 19:20 20:20 20:20 WBC RBC Hgb Hct MCV MCH MCHC RDW Plt Count MPV Prelim Diff (Auto) Neut % (Auto) Lymph % (Auto) [place] % (Auto) Eos % (Auto) Baso % (Auto) Neut # (Auto) Lymph # (Auto) [place] # (Auto) Eos # (Auto) Baso # (Auto) WBC Differential Seg Neuts % (Manual) Band Neuts % (Manual) Lymphocytes % (Manual) Monocytes % (Manual) Abs Neuts (Manual) Differential Comment Platelet Estimate Platelet Morphology RBC Morphology PT 17.4 H INR 1.7 APTT Greater than 277.5 H* Puncture Site Patient Temperature O2 Saturation ABG pH ABG pCO2 ABG pO2 ABG HCO3 ABG O2 Content ABG Base Excess ABG Methemoglobin Emile Test VBG pH VBG pCO2 VBG pO2 VBG HCO3 VBG O2 Saturation VBG O2 Content VBG Base Excess VBG Carboxyhemoglobin VBG Methemoglobin Hemoglobin Carboxyhemoglobin O2 Delivery Device Vent Setting Inspired O2 Critical Value Sodium Potassium Chloride Carbon Dioxide Anion Gap BUN Creatinine Estimated GFR POC Glucose Random Glucose Lactic Acid 14.3 H* Calcium Magnesium Total Bilirubin AST ALT Alkaline Phosphatase Total Protein Albumin Random Vancomycin 08/04/18 08/04/18 08/04/18 03:55 03:55 05:18 WBC 42.3 H RBC 3.63 L Hgb 10.2 L Hct 30.8 L MCV 85.0 D MCH 28.2 MCHC 33.2 RDW 14.4 Plt Count 82 L D MPV 7.7 Prelim Diff (Auto) Slide review pending Neut % (Auto) 87.4 H Lymph % (Auto) 3.5 L [place] % (Auto) 8.3 H Eos % (Auto) 0.0 Baso % (Auto) 0.8 Neut # (Auto) 37.0 H Lymph # (Auto) 1.5 [place] # (Auto) 3.5 H Eos # (Auto) 0.0 Baso # (Auto) 0.3 H WBC Differential Manual diff final Seg Neuts % (Manual) 84 H Band Neuts % (Manual) 5 Lymphocytes % (Manual) 4 L Monocytes % (Manual) 7 Abs Neuts (Manual) 37.6 H Differential Comment . Platelet Estimate Low L Platelet Morphology Normal RBC Morphology Normal PT INR APTT Puncture Site Art line Patient Temperature 98.6 O2 Saturation 97 ABG pH 7.61 H* ABG pCO2 28 L ABG pO2 121 H ABG HCO3 28 H ABG O2 Content 13.0 ABG Base Excess 5.4 H ABG Methemoglobin 1.5 Emile Test Present VBG pH VBG pCO2 VBG pO2 VBG HCO3 VBG O2 Saturation VBG O2 Content VBG Base Excess VBG Carboxyhemoglobin VBG Methemoglobin Hemoglobin 9.4 L Carboxyhemoglobin 1.0 O2 Delivery Device Ventilator Vent Setting Prvc24/600/0.8/+5 Inspired O2 100 Critical Value Yes Sodium 141 Potassium 2.7 L* Chloride 100 D Carbon Dioxide 26.7 D Anion Gap 14 BUN 24 H Creatinine 2.97 H Estimated GFR 17 L POC Glucose Random Glucose 247 H Lactic Acid Calcium 7.7 L Magnesium Total Bilirubin 0.4 AST 254 H ALT 125 H Alkaline Phosphatase 61 Total Protein 5.7 L D Albumin 3.1 L D Random Vancomycin 26.0 08/04/18 08/04/18 08/04/18 05:30 06:38 11:56 WBC RBC Hgb Hct MCV MCH MCHC RDW Plt Count MPV Prelim Diff (Auto) Neut % (Auto) Lymph % (Auto) [place] % (Auto) Eos % (Auto) Baso % (Auto) Neut # (Auto) Lymph # (Auto) [place] # (Auto) Eos # (Auto) Baso # (Auto) WBC Differential Seg Neuts % (Manual) Band Neuts % (Manual) Lymphocytes % (Manual) Monocytes % (Manual) Abs Neuts (Manual) Differential Comment Platelet Estimate Platelet Morphology RBC Morphology PT INR APTT Puncture Site Art line Patient Temperature 98.6 O2 Saturation 96 ABG pH 7.49 H ABG pCO2 38 ABG pO2 119 ABG HCO3 28 H ABG O2 Content 13.2 ABG Base Excess 4.8 H ABG Methemoglobin 1.7 Emile Test Present VBG pH VBG pCO2 VBG pO2 VBG HCO3 VBG O2 Saturation VBG O2 Content VBG Base Excess VBG Carboxyhemoglobin VBG Methemoglobin Hemoglobin 9.6 L Carboxyhemoglobin 0.9 O2 Delivery Device Ventilator Vent Setting See comments Inspired O2 100 Critical Value No Sodium Potassium Chloride Carbon Dioxide Anion Gap BUN Creatinine Estimated GFR POC Glucose 111 H Random Glucose Lactic Acid 4.5 H* Calcium Magnesium Total Bilirubin AST ALT Alkaline Phosphatase Total Protein Albumin Random Vancomycin 08/04/18 08/04/18 14:16 14:40 WBC 39.3 H RBC 3.00 L Hgb 8.4 L Hct 25.9 L MCV 86.5 MCH 28.2 MCHC 32.6 RDW 14.7 Plt Count 52 L D MPV 8.1 Prelim Diff (Auto) Neut % (Auto) Lymph % (Auto) [place] % (Auto) Eos % (Auto) Baso % (Auto) Neut # (Auto) Lymph # (Auto) [place] # (Auto) Eos # (Auto) Baso # (Auto) WBC Differential Seg Neuts % (Manual) Band Neuts % (Manual) Lymphocytes % (Manual) Monocytes % (Manual) Abs Neuts (Manual) Differential Comment Platelet Estimate Platelet Morphology RBC Morphology PT INR APTT Puncture Site Art line Patient Temperature 98.6 O2 Saturation 87 L* ABG pH 7.52 H* ABG pCO2 41 ABG pO2 53 L* ABG HCO3 33 H ABG O2 Content 10.5 L ABG Base Excess 9.8 H ABG Methemoglobin 1.5 Emile Test Present VBG pH VBG pCO2 VBG pO2 VBG HCO3 VBG O2 Saturation VBG O2 Content VBG Base Excess VBG Carboxyhemoglobin VBG Methemoglobin Hemoglobin 8.5 L Carboxyhemoglobin 1.1 O2 Delivery Device Ventilator Vent Setting Inspired O2 50 Critical Value Yes Sodium Potassium Chloride Carbon Dioxide Anion Gap BUN Creatinine Estimated GFR POC Glucose Random Glucose Lactic Acid Calcium Magnesium Total Bilirubin AST ALT Alkaline Phosphatase Total Protein Albumin Random Vancomycin - Imaging Impressions Chest X-Ray 08/03/18 00:00 CONCLUSION: Endotracheal tube in good position. Right IJ line in right atrium. Basilar and dependent airspace disease in the lungs. Chest X-Ray 08/04/18 07:04 CONCLUSION: Bibasilar pleural-parenchymal opacity likely representing small pleural effusions with associated atelectasis and/or airspace consolidation. The opacity at the left lung base has increased since yesterday's study. 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
--- NOTE | 2018-08-04 15:55 | ECHRPT ---
Indication: SOB CONCLUSIONS Tricuspid vegetation seen, about 1.75cmX 0.5cm LVEF 55-60% Normal left ventricular size. Wall thickness is normal. The left ventricular systolic function is grossly normal on limited imaging. A pacemaker wire is noted. There is a pacemaker wire present in the right atrial cavity. [id number] mitral valve regurgitation. Findings consistent with vegetation on the tricuspid valve. There is moderate tricuspid regurgitation. The estimated pulmonary arterial pressure is 37 mmHg. Trivial pulmonary valve regurgitation. There is less than 50% respiratory change in dimension of the inferior vena cava (abnormal). Pleural effusion is present. BP: / HR: Rhythm: Sinus MEASUREMENTS (Male / Female) Normal Values Technical Quality:Fair 2D ECHO LV Diastolic Diameter PLAX 5.6 cm 4.2 - 5.9 / 3.9 - 5.3 cm LV Systolic Diameter PLAX 3.5 cm IVS Diastolic Thickness 0.9 cm 0.6 - 1.0 / 0.6 - 0.9 cm LVPW Diastolic Thickness 0.9 cm 0.6 - 1.0 / 0.6 - 0.9 cm LV Relative Wall Thickness 0.3 RV Internal Dim ED PLAX 3.3 cm LVOT Diameter 2.0 cm Aortic Root Diameter 3.0 cm LA Systolic Diameter LX 4.0 cm 3.0 - 4.0 / 2.7 - 3.8 cm DOPPLER AV Peak Velocity 123.0 cm/s AV Peak Gradient 6.1 mmHg AV Mean Gradient 4.0 mmHg AV Velocity Time Integral 27.2 cm LVOT Peak Velocity 79.7 cm/s LVOT Peak Gradient 2.5 mmHg LVOT Velocity Time Integral 16.1 cm AV Area Cont Eq vti 1.9 cm AV Area Cont Eq pk 2.0 cm Mitral E Point Velocity 49.9 cm/s Mitral A Point Velocity 39.5 cm/s Mitral E to A Ratio 1.3 LV E' Lateral Velocity 13.5 cm/s Mitral E to LV E' Lateral Ratio 3.7 LV E' Septal Velocity 7.6 cm/s Mitral E to LV E' Septal Ratio 6.6 TR Peak Velocity 260.0 cm/s TR Peak Gradient 27.0 mmHg Right Atrial Pressure 10.0 mmHg Pulmonary Artery Systolic Pressu 37.0 mmHg Right Ventricular Systolic Press 37.0 mmHg PV Peak Velocity 45.9 cm/s PV Peak Gradient 0.8 mmHg FINDINGS LEFT VENTRICLE Normal left ventricular size. Wall thickness is normal. The left ventricular systolic function is grossly normal on limited imaging. RIGHT VENTRICLE A pacemaker wire is noted. LEFT ATRIUM The left atrial size is normal. RIGHT ATRIUM There is a pacemaker wire present in the right atrial cavity. ATRIAL SEPTUM The interatrial septum not well visualized. AORTA The aortic root and proximal ascending aorta are normal in size on limited imaging. MITRAL VALVE [id number] mitral valve regurgitation. AORTIC VALVE Trileaflet aortic valve. No aortic valve stenosis or regurgitation. TRICUSPID VALVE Findings consistent with vegetation on the tricuspid valve. There is moderate tricuspid regurgitation. The estimated pulmonary arterial pressure is 37 mmHg. PULMONARY VALVE Trivial pulmonary valve regurgitation. VESSELS There is less than 50% respiratory change in dimension of the inferior vena cava (abnormal). PERICARDIUM Pleural effusion is present. Syed Stone MD (Electronically Signed) Final Date:04 August 2018 15:54
[2018-08-04 16:20] LABS: Albumin 2.9 g/dL (3.4-5.0); Calcium 6.5 mg/dL (8.5-10.1); Carbon Dioxide 38.1 meq/L (21.0-32.0); Potassium 4.9 meq/L (3.5-5.1); Total Protein 5.3 g/dL (6.4-8.2)
[2018-08-04] MEDS: Heparin 10,000 UNITS/10 ML Vial (for IV use) OTHER PRN (17:51)
[2018-08-04 18:59] LABS: Hepatitis A IgM Antibody Nonreactive (Nonreactive)
[2018-08-04 19:00] LABS: Hepatitits B Surface Antigen Nonreactive (Nonreactive)
--- NOTE | 2018-08-04 21:34 | ECG ---
Date Performed: 08/04/2018 Time Performed: 16:39:10 PTAGE: 42 years EKG: Normal Sinus rhythm ELECTRONIC VENTRICULAR PACEMAKER ABNORMAL RHYTHM ECG Compared to prior electrocardiogram, Sinus rhyt hm and pacemakers seen. PREVIOUS TRACING : 08/04/2018 07.24 DOCTOR: Shine Galvan Interpretating Date/Time 08/04/2018 21:32:28
[2018-08-05] MEDS: Aztreonam Inj 2 GM in Sodium Chloride 0.9% Inj 100 ML IV.SIG SCH ×3 (00:05→16:17)
[2018-08-05] MEDS: Hydrocortisone Sod Succinate 100 MG Vial IV.PUSH SCH ×4 (00:07→21:46)
[2018-08-05] MEDS: Insulin NovoLOG Aspart Correctional Sugar Inj SQ SCH ×4 (00:07→17:26)
[2018-08-05] MEDS: fentaNYL 10 mcg/mL Premix Drip 2,500 MCG/250 ML BAG IV.SIG PRN (00:44)
[2018-08-05] MEDS: Midazolam 50 MG/50 ML Inj 50 MG/50 ML BAG IV.CONT PRN (00:45)
[2018-08-05] MEDS: Propofol 1000 mg/100 ml Inj 1,000 MG/100 ML BOTTLE IV.CONT PRN (02:15)
[2018-08-05] MEDS: DOBUTamine 250 MG/250 ML Premx 250 MG/250 ML BAG IV.CONT SCH (03:57)
--- NOTE | 2018-08-05 03:57 | XR ---
EXAM DATE: 08/05/2018 6:00 AM EDT AGE/SEX: 42 years / Female INDICATIONS: Shortness of breath, possible pulmonary disease. CLINICAL DATA: This is the patient's subsequent encounter. Patient reports that signs and symptoms h ave been present for 3 days and indicates a pain score of Nonresponsive. MEDICAL/SURGICAL HISTORY: Hypertension. Diabetes. Pacemaker. COMPARISON: [facility], CHEST 1V SINGLE AP, 08/04/2018. . FINDINGS: The ET tube tip is 3.2 cm from the farhana. There is a right internal jugular central line placed with tip overlying the SVC. There is a pacing device in the left chest. The heart size is nor mal. There is increased density at the lower lungs bilaterally. There is silhouetting of the hemidiap hragms being more prominent on the left. CONCLUSION: Increased density at the bases bilaterally likely related to a combination of atelectasis, consolidat ion and possible effusions. Electronically signed by: Brian Loyd MD 08/05/2018 3:56 AM EDT
[2018-08-05 04:03] LABS: Hematocrit 22.7 % (35.0-46.0); Hemoglobin 7.3 gm/dL (11.6-15.3); Mean Corpuscular HGB Conc 32.2 % (32.0-36.0); Mean Corpuscular Hemoglobin 28.2 pg (27.0-34.0); Mean Corpuscular Volume 87.5 fL (80.0-100.0); Mean Platelet Volume 8.6 fL (7.0-11.0); Platelet Count 54 th/mm3 (150-450); Red Blood Count 2.59 mil/mm3 (4.00-5.30); Red Cell Distribution Width 14.9 % (11.6-17.2); White Blood Count 33.6 th/mm3 (4.0-11.0)
[2018-08-05 04:49] LABS: Albumin 2.7 g/dL (3.4-5.0); Calcium 6.6 mg/dL (8.5-10.1); Carbon Dioxide 30.4 meq/L (21.0-32.0); Magnesium 1.5 mg/dL (1.5-2.5); Total Protein 5.3 g/dL (6.4-8.2); Vancomycin,Random 15.3 Comment
[2018-08-05] MEDS: Chlorhexidine Gluconate 2% 1 Pack (2 Cloths) TOPICAL SCH (04:51)
[2018-08-05] MEDS: Pantoprazole Inj 40 MG Vial IV.PUSH SCH (07:47)
--- NOTE | 2018-08-05 08:43 | P.PNCC ---
Subjective Subjective Remarks/Hospital Course: 42-year-old female with past medical history of systemic lupus erythematosus, Crohn's disease, hypothyroidism, endometriosis, gastroparesis, chronic kidney disease stage III, interstitial cystitis, Brugada syndrome with ICD replaced 06/27/[address] Cervantes. 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 She states she was taking a shower this evening and felt weak and presyncopal. She was transported by [facility] with heart rate 30s to 40s. Upon arrival she had ventricular paced rhythm at a rate of 40. Her blood pressure was 78/35. Transcutaneous pacer was placed with backup rate of 60. She was started on dopamine which has been titrated up to 16 mcg/kg/min with heart rate in the 70s-80s and blood pressure 93/51. Her pacemaker was interrogated and was noted to be intermittently capturing. I do not appreciate damage to lead or definite migration on chest x-ray though image is rotated c/ w prior. Dr. Nowak discussed with Dr. English who recommended Dopamine with backup transcutaneous pacing and consultation with Dr. Cervantes in the morning. Patient states that she began feeling weak about a week and a half ago when her Norvasc was increased. It was initially increased to 10 mg p.o. daily. Was recently admitted 07/24-07/25 and at that time was told to take Norvasc 5 mill grams p.o. twice daily which she states she has been taking as prescribed. She denies chest pain or shortness of breath. She became nauseated and vomited small amount of emesis, nonbloody nonbilious after arrival to the ED. She states she has some tenderness of the chest wall, noted some drainage 2 days ago from anterior incision but I do not see any now. She states yesterday she had a temp 102.7. She is afebrile in the ED without leukocytosis. She does have history of pocket infection in december 2017 and 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 and then replaced in [facility] (original device placed 10/03/17). She had additional chest wall infection 02/2018 with MRSA resulting in device removal and wound vac placement. ICD was replaced 06/27/[address] Cervantes. She states she has a prior history of menorrhagia and has had vaginal bleeding for about a month. It has been heavier over the last couple of days changing 1 pad per hour. Her hemoglobin is 9.6, previously 9.7 on 07/25. SUBJ 08/03: Patient continues to be external pacer dependent. Currently on 20mcg/kg/min of dopamine. When the pacer rate is decreased patient's heart rate decreases to mid 20s and she is symptomatic. I have emergently placed a right IJ central line to administer vasoactive medication. Add Isuprel. Discussed personally with Dr. Helen PEREZ. I reviewed the previous report from [employer] in the ED the rate was reduced to VVI 30 as the patient complained about pain with pacing. We have contacted [employer] again to increase the backup rate to 60 At about 1.30 pm I was called emergently to the bedside as the patient sustained tonic-clonic seizures for approximately 30 sec, Ativan 2 mg push was given with resolution of seizure. Prior to this patient had been placed on Isuprel at 8 mcg/min, dopamine running at 20 mcg/kg/min, and Levophed at 20 mcg/ kg/min. Patient appear to be postictal and unresponsive her heart rate was approximately 30 bpm manually. Because of hemodynamic instability and lack of airway protection and anticipated pacemaker placement I proceeded with endotracheal intubation and placed on mechanical ventilation. Post intubation I also placed an arterial line which showed actual heart rate to be in the 30s and patient remained in severe shock on multiple pressors with a map 50-55. I added epinephrine infusion at 5 mcg/min and rapidly titrated up to 10 mcg/min. Levophed was increased to 30 mcg/min. An ABG showed severe metabolic acidosis pH of 6.9 base excess was -20. 4 Amps of bicarb IVP given, and bicarb infusion started. Additional fluid resuscitation was carried out. Bedside echo shows heart beating only about 30 bpm but good contractility, EF> 60%. I discussed this again with Dr. Cervantes. Even though patient is hemodynamically unstable her only chance of survival is in emergent pacemaker placement as she is not capturing with 120 MA on transcutaneous pacer, and patient remained in shock and heart rate in 30s despite maximum dose of Isuprel and dopamine and epinephrine. I accompanied the patient to the [facility] and continued resuscitation with intermittent epinephrine pushes 1 amp of atropine push. I stayed at the bedside of the patient until the temporary pacemaker was placed by Dr. Cervantes on the fluoroscopy and patient had good capture. I also updated the mother about the very critical nature of the patient's condition and high probability that patient may not survive this episode as she is extremely acidotic and in profound shock 08/04: Patient was in profound shock yesterday up to 5 vasopressor and inotropic agents. See notes from yesterday. Patient had emergency temporary pacemaker placed in the [facility] under fluoroscopy followed by permanent pacemaker placement. At that time she remained on high-dose pressors, for correction of acidosis and anuria started on CVVH. Overnight has started to improve. Currently weaned off dopamine and Isuprel. Inherent sinus rhythm heart rate 65 bpm not paced at this time. Currently remains on epinephrine at 3 mcg/min, Levophed at 3 mcg/min, Caleb-Synephrine and Afrin at 50 mcg/min and vasopressin 0.04 international units. Map consistently above 80. Patient wakes up follows commands despite being sedated with Versed and fentanyl. lactate improved from 14.3 to 4. Remains anuric 08/05: Patient remains intubated sedated tolerating CPAP today. All pressors are off now remains on dobutamine at 2.5 mcg/min to maintain cardiac index more than 2. Urine output slightly improved 200 mL into 24 hours. Had CVVH transition to HD yesterday 3 L removed. CBC count improved from 39.3-33.6. 2D echo showed tricuspid vegetation. ID consulted Objective Vital Signs / I&O: Vital Signs 08/04/18 08:45 08/04/18 09:00 08/04/18 09:15 Temperature Pulse Rate 54 L 58 L 62 Respiratory Rate Blood Pressure 105/67 110/67 122/69 Pulse Oximetry 96 99 94 L 08/04/18 09:30 08/04/18 10:00 08/04/18 10:46 Temperature Pulse Rate 58 L 67 71 Respiratory Rate Blood Pressure 116/63 122/62 111/59 L Pulse Oximetry 91 L 85 L 08/04/18 11:00 08/04/18 12:00 08/04/18 13:00 Temperature 97.7 F Pulse Rate 67 74 71 Respiratory Rate Blood Pressure 121/64 Pulse Oximetry 95 96 96 08/04/18 14:00 08/04/18 15:00 08/04/18 15:30 Temperature Pulse Rate 65 69 Respiratory Rate Blood Pressure 98/55 L Pulse Oximetry 91 L 95 93 L 08/04/18 15:31 08/04/18 16:00 08/04/18 17:00 Temperature Pulse Rate 67 64 66 Respiratory Rate 14 Blood Pressure 93/53 L Pulse Oximetry 90 L 93 L 08/04/18 18:00 08/04/18 19:00 08/04/18 20:00 Temperature 97.6 F Pulse Rate 71 74 71 Respiratory Rate 14 Blood Pressure 97/56 L 114/59 L Pulse Oximetry 95 94 L 93 L 08/04/18 20:53 08/04/18 20:57 08/04/18 21:00 Temperature Pulse Rate 73 72 Respiratory Rate 14 14 14 Blood Pressure 108/51 L Pulse Oximetry 93 L 92 L 08/04/18 22:00 08/04/18 23:00 08/04/18 23:42 Temperature Pulse Rate 73 78 Respiratory Rate 14 14 14 Blood Pressure 107/59 L 107/54 L Pulse Oximetry 93 L 93 L 94 L 08/05/18 00:00 08/05/18 01:00 08/05/18 02:00 Temperature 96.7 F L Pulse Rate 75 76 86 Respiratory Rate 14 14 14 Blood Pressure 106/58 L 101/56 L 117/66 Pulse Oximetry 93 L 93 L 93 L 08/05/18 03:00 08/05/18 04:00 08/05/18 04:10 Temperature 96.9 F L Pulse Rate 77 85 Respiratory Rate 14 14 22 Blood Pressure 91/67 L 118/57 L Pulse Oximetry 94 L 94 L 94 L 08/05/18 04:12 08/05/18 05:00 08/05/18 06:00 Temperature Pulse Rate 87 82 84 Respiratory Rate 23 14 14 Blood Pressure 107/56 L 106/54 L Pulse Oximetry 96 96 08/05/18 07:00 08/05/18 07:57 08/05/18 08:00 Temperature 99.1 F Pulse Rate 79 84 Respiratory Rate 18 Blood Pressure 114/57 L Pulse Oximetry 95 95 95 Intake & Output 08/04/18 08/05/18 08/05/18 18:59 06:59 18:59 Intake Total 9451 / 9451 800 / 800 Output Total 3045 / 3045 150 / 150 Balance 6406 / 6406 650 / 650 Weight 94 kg 90 kg Intake: IV 9451 / 9451 800 / 800 EPINEPHrine (1:1000) Inj 4 MG 163 / 163 In NS Inj 246 ML @ 30 MCG/MIN 112.5 mls/hr IV.CONT TITRATE PRN Rx#:[id number] Versed Inj 50 mg In 50 ml @ 2 100 / 100 50 / 50 MG/HR 2 mls/hr IV.CONT TITRATE PRN Rx#:[id number] Levophed Inj 16 MG In D5W Inj 141 / 141 234 ML @ 44 MCG/MIN 41.25 mls/ hr IV.CONT TITRATE PRN Rx#: [id number] Neosynephrine Inj 40 MG In D5W 138 / 138 Inj 496 ML @ 100 MCG/MIN 75 mls /hr IV.CONT TITRATE PRN Rx#: [id number] Diprivan 1000 mg/100 ml Inj 1, 100 / 100 200 / 200 000 mg In 100 ml @ 5 MCG/KG/MIN 2.585 mls/hr IV.CONT TITRATE PRN Rx#:[id number] Sodium Bicarbonate 8.4% Inj 100 7700 / 7700 MEQ In 1/2 Normal Saline Inj 1 ,000 ML @ 1000 mls/hr IV.CONT . Q1H6M SHUKRI Rx#:[id number] Pitressin Inj 40 UNIT In D5W 24 / 24 Inj 98 ML @ 0.04 UNITS/MIN 6 mls/hr IV.CONT CONT SHUKRI Rx#: [id number] Azactam Inj 2 GM In NS Inj 100 100 / 100 200 / 200 ML @ 200 mls/hr IV.SIG Q8H SHUKRI Rx#:[id number] KCl Inj 30 MEQ In NS Inj 100 ML 230 / 230 @ 38.333 mls/hr IV.SIG Q3H SHUKRI Rx#:[id number] fentaNYL 10 mcg/mL Premix Drip 250 / 250 250 / 250 2,500 mcg In 250 ml @ 50 MCG/HR 5 mls/hr IV.SIG TITRATE PRN Rx #:[id number] Flagyl 500 MG Inj 100 ML @ 100 105 / 105 100 / 100 mls/hr IV.SIG Q8H SHUKRI Rx#: [id number] NS Inj 100 ML @ As Directed 400 / 400 OTHER Q2H SHUKRI Rx#:[id number] Oral 0 / 0 Output: Hemodialysis Amount 3000 / 3000 Urine Amount (Catheter) 45 / 45 150 / 150 Indwelling Urethral Catheter 45 / 45 150 / 150 Other: # Bowel Movements 0 Weight On Admission 86 kg Result Diagrams: 08/05/18 03:36 08/05/18 03:36 Objective Remarks: GENERAL: Chronically ill-appearing overweight female intubated sedated with Fentanyl SKIN: Warm and dry. HEAD: Atraumatic. Normocephalic. EYES: Pupils equal and round. No scleral icterus. No injection or drainage. ENT: No nasal bleeding or discharge. Orotracheally intubated NECK: Trachea midline. No JVD. No meningismus. Right IJ central line in place CARDIOVASCULAR: Heart rate 90 bpm, paced, currently not paced, 1/6 systolic murmur lsb. Baseline rhythm chronic A. fib. Left upper chest pacemaker dressing intact. Currently on Dobutamine 2.5 mcg/kg/min. Cardiac index 2 CHEST: There is an anterior incision from pacemaker placement that is healed. No purulence. There is no erythema or warmth. There is a scar on lateral chest wall that is healed. The scar tissue is tender but there is no erythema or exudate. RESPIRATORY: On PRVC/AC, now on CPAP. Air entry equal bilaterally coarse rhonchi no wheezes no crackles GASTROINTESTINAL: Abdomen soft, non-tender, nondistended. Bowel sounds present peer MUSCULOSKELETAL: 1+ bilateral lower extremity edema. NEUROLOGICAL: Awake and alert,on the vent. No obvious cranial nerve deficits. Motor grossly within normal limits. Follows commands x4 Assessment and Plan - Problem List (1) Hypotension Code(s): I95.9 - Hypotension, unspecified Status: Acute (2) CKD (chronic kidney disease) stage 3, GFR 30-59 ml/min Code(s): N18.3 - Chronic kidney disease, stage 3 (moderate) Status: Chronic (3) Symptomatic bradycardia Code(s): R00.1 - Bradycardia, unspecified Status: Acute (4) Acute hypokalemia Code(s): E87.6 - Hypokalemia Status: Acute (5) Chronic pain Code(s): G89.29 - Other chronic pain Status: Chronic (6) Medical non-compliance Code(s): Z91.19 - Patient's noncompliance with other medical treatment and regimen Status: Acute - Assessment and Plan Plan: NEURO: Possible seizures Chronic pain Discontinue all sedation Start morphine 15 mg p.o. every 8 hours and hold Valium 10 mg p.o. every 8 hours , if extubated EEG Monday, Seizure-like activity most likely secondary to decreased perfusion RESP: Acute hypoxemic respiratory failure PRVC/AC, Vent bundle, DuoNeb q6 and PRN Broad spectrum ABX as below CPAP trial with possible extubation Intubated yesterday 08/03/2018 for probable seizure and severe cardiogenic shock PH at the time of intubation was 6.9, lactic acid was 15 Acidosis has improved, continue to wean FiO2 as tolerated CV: Severe cardiogenic shock-resolved Symptomatic bradycardia with hypotension-resolved AICD malfunction/probable dislodged pacemaker lead Severe lactic acidosis Brugada syndrome s/p AICD Infective endocarditis involving tricuspid valve Due to profound cardiogenic shock and severe bradycardia patient was placed on maximum doses of epinephrine, Levophed, dopamine, Isuprel, vasopressin and Caleb- Synephrine. Currently only on dobutamine, although the vasopressor agents discontinued Temporary pacer followed by pacemaker lead revision 08/03/18 by . Previous leads were extracted 2D echo shows tricuspid valve endocarditis, ID following CVVH started 08/03 due to severe acidosis, now transition to HD Prior ICD pocket infection in December 2017 and February 2018. Most recently replaced 06/27/[address] Cervantes. Per device rep she did not follow-up for scheduled outpatient interrogation following device placement. Now interrogation shows pacemaker intermittently capturing per [employer] rep. Holding spironolactone 25 mg p.o. daily in view of hypotension, renal failure Status post extensive fluid resuscitation Essential hyper tension. Holding Norvasc GI: Crohn's disease N.p.o. start renal cardiac diet if extubated Protonix to IV States she is scheduled to follow-up with [facility] gastroenterology in the end of August Continue stress dose steroids, but reduce to 50 q8 from 08/06/18 [facility] PHYSIOTHERAPIST: Menorrhagia, patient reports is a chronic problem. Hasn't followed up with gynecology in over a year. Endometriosis Beta hCG is negative. Hemoglobin is stable, can follow-up as an outpatient with gynecology. FEN/RENAL: Acute on chronic kidney disease with anuria Chronic kidney disease stage III Started on CVVH 08/03/18 due to anuria and severe metabolic acidosis CVVH changed to hemodialysis yesterday as the blood pressure improved. Urine output slightly improved Nephrology Dr. Arrieta Patient states she has not had renal biopsy. She has been followed by nephrology at [facility]. Hypokalemia Potassium replacement ID: Tricuspid valve endocarditis Shock combined cardiogenic and septic-improving History of ICD pocket infection most recently with MRSA February 2018. She has undergone device removal on 2 prior occasions. Most recently was removed in February 2018 with wound VAC placement. Device replaced 06/27/18. She reported fever 102.7, however she is afebrile here. Continue renally dosed vancomycin, aztreonam, Flagyl 2D echo showed tricuspid valve endocarditis 1.7 x 0.5 Continue medical management. Leukocytosis gradually improving 33K today RHEUM: Systemic lupus erythematosus On chronic steroids On chronic prednisone 30 mg p.o. daily for >2 years. In view of shock will place on hydrocortisone 100 mill grams IV every 8 hours. Hold prednisone Scheduled to follow-up with [facility] rheumatology end of August. Start tapering-stress dose hydrocortisone from tomorrow HEME: Chronic anemia Thrombocytopenia most likely secondary to DIC/sepsis Transfuse blood and blood products as needed ENDO: Hypothyroidism Continue Synthroid 112 mcg p.o. daily-changed to IV yesterday. Normal TSH. PROPH: SCDs for DVT prophylaxis. Hold pharmacologic DVT prophylaxis at this time due to recent invasive procedure, thrombocytopenia Protonix 40 mg IV daily for stress ulcer prophylaxis. ACCESS: New right IJ central line, right radial arterial line, right femoral Vas -Cath placed 08/03/18 Remove arterial line today 08/05/2018 Patient is critically ill with severe septic shock though now stable and improving. Requires admission to ICU for close hemodynamic monitoring. She is still at high risk for further deterioration and . Full Code Critical care time 35 minutes discontinuously exclusive of separately billable procedures. Code Status: Full
[2018-08-05] MEDS: Senna/Docusate Sodium 8.6/50 MG Tablet PO SCH (09:41)
--- NOTE | 2018-08-05 11:17 | P.PNNP ---
Subjective Interval history: Patient is alert, now extubated, denies SOB, not in distress. Physical Exam Vital signs: Vital Signs 08/04/18 12:00 08/04/18 13:00 08/04/18 14:00 Temperature 97.7 F Pulse Rate 74 71 65 Respiratory Rate Blood Pressure 121/64 98/55 L Pulse Oximetry 96 96 91 L 08/04/18 15:00 08/04/18 15:30 08/04/18 15:31 Temperature Pulse Rate 69 67 Respiratory Rate 14 Blood Pressure Pulse Oximetry 95 93 L 08/04/18 16:00 08/04/18 17:00 08/04/18 18:00 Temperature Pulse Rate 64 66 71 Respiratory Rate Blood Pressure 93/53 L 97/56 L Pulse Oximetry 90 L 93 L 95 08/04/18 19:00 08/04/18 20:00 08/04/18 20:53 Temperature 97.6 F Pulse Rate 74 71 73 Respiratory Rate 14 14 Blood Pressure 114/59 L Pulse Oximetry 94 L 93 L 08/04/18 20:57 08/04/18 21:00 08/04/18 22:00 Temperature Pulse Rate 72 73 Respiratory Rate 14 14 14 Blood Pressure 108/51 L 107/59 L Pulse Oximetry 93 L 92 L 93 L 08/04/18 23:00 08/04/18 23:42 08/05/18 00:00 Temperature 96.7 F L Pulse Rate 78 75 Respiratory Rate 14 14 14 Blood Pressure 107/54 L 106/58 L Pulse Oximetry 93 L 94 L 93 L 08/05/18 01:00 08/05/18 02:00 08/05/18 03:00 Temperature Pulse Rate 76 86 77 Respiratory Rate 14 14 14 Blood Pressure 101/56 L 117/66 91/67 L Pulse Oximetry 93 L 93 L 94 L 08/05/18 04:00 08/05/18 04:10 08/05/18 04:12 Temperature 96.9 F L Pulse Rate 85 87 Respiratory Rate 14 22 23 Blood Pressure 118/57 L Pulse Oximetry 94 L 94 L 08/05/18 05:00 08/05/18 06:00 08/05/18 07:00 Temperature Pulse Rate 82 84 79 Respiratory Rate 14 14 Blood Pressure 107/56 L 106/54 L Pulse Oximetry 96 96 95 08/05/18 07:57 08/05/18 08:00 08/05/18 08:38 Temperature 99.1 F Pulse Rate 84 87 Respiratory Rate 18 Blood Pressure 114/57 L Pulse Oximetry 95 95 08/05/18 08:45 08/05/18 09:00 08/05/18 09:01 Temperature Pulse Rate 90 88 Respiratory Rate Blood Pressure 117/62 Pulse Oximetry 91 L 92 L 92 L 08/05/18 09:04 08/05/18 09:15 08/05/18 09:30 Temperature Pulse Rate 87 87 86 Respiratory Rate 20 Blood Pressure 115/57 L 111/59 L Pulse Oximetry 100 91 L 08/05/18 09:45 08/05/18 10:00 08/05/18 10:15 Temperature Pulse Rate 85 85 81 Respiratory Rate Blood Pressure 115/59 L 107/57 L 106/55 L Pulse Oximetry 91 L 91 L 92 L Intake & Output 08/04/18 08/05/18 08/05/18 18:59 06:59 18:59 Intake Total 9451 / 9451 900 / 900 482 / 482 Output Total 3045 / 3045 150 / 150 Balance 6406 / 6406 750 / 750 482 / 482 Weight 94 kg 90 kg Intake: IV 9451 / 9451 900 / 900 482 / 482 DOPamine 800 MG/500 ML Premix 0 / 0 800 mg In 500 ml @ 3 MCG/KG/MIN 9.696 mls/hr IV.CONT TITRATE PRN Rx#:[id number] EPINEPHrine (1:1000) Inj 4 MG 163 / 163 In NS Inj 246 ML @ 30 MCG/MIN 112.5 mls/hr IV.CONT TITRATE PRN Rx#:[id number] Versed Inj 50 mg In 50 ml @ 2 100 / 100 50 / 50 40 / 40 MG/HR 2 mls/hr IV.CONT TITRATE PRN Rx#:[id number] Levophed Inj 16 MG In D5W Inj 141 / 141 0 / 0 234 ML @ 44 MCG/MIN 41.25 mls/ hr IV.CONT TITRATE PRN Rx#: [id number] Neosynephrine Inj 40 MG In D5W 138 / 138 112 / 112 Inj 496 ML @ 100 MCG/MIN 75 mls /hr IV.CONT TITRATE PRN Rx#: [id number] Diprivan 1000 mg/100 ml Inj 1, 100 / 100 200 / 200 80 / 80 000 mg In 100 ml @ 5 MCG/KG/MIN 2.585 mls/hr IV.CONT TITRATE PRN Rx#:[id number] Sodium Bicarbonate 8.4% Inj 100 7700 / 7700 MEQ In 1/2 Normal Saline Inj 1 ,000 ML @ 1000 mls/hr IV.CONT . Q1H6M SHUKRI Rx#:[id number] Pitressin Inj 40 UNIT In D5W 24 / 24 0 / 0 Inj 98 ML @ 0.04 UNITS/MIN 6 mls/hr IV.CONT CONT SHUKRI Rx#: [id number] Azactam Inj 2 GM In NS Inj 100 100 / 100 200 / 200 100 / 100 ML @ 200 mls/hr IV.SIG Q8H SHUKRI Rx#:[id number] KCl Inj 30 MEQ In NS Inj 100 ML 230 / 230 @ 38.333 mls/hr IV.SIG Q3H SHUKRI Rx#:[id number] fentaNYL 10 mcg/mL Premix Drip 250 / 250 250 / 250 150 / 150 2,500 mcg In 250 ml @ 50 MCG/HR 5 mls/hr IV.SIG TITRATE PRN Rx #:[id number] Flagyl 500 MG Inj 100 ML @ 100 105 / 105 200 / 200 mls/hr IV.SIG Q8H SHUKRI Rx#: [id number] NS Inj 100 ML @ As Directed 400 / 400 OTHER Q2H SHUKRI Rx#:[id number] Oral 0 / 0 Output: Hemodialysis Amount 3000 / 3000 Urine Amount (Catheter) 45 / 45 150 / 150 Indwelling Urethral Catheter 45 / 45 150 / 150 Other: # Bowel Movements 0 Weight On Admission 86 kg Narrative: GENERAL: Alert, mild resp. distress. SKIN: Warm and dry. HEAD: Atraumatic. Normocephalic. NECK: Trachea midline. No JVD. CARDIOVASCULAR: regular, Murmur present. Pacemaker RESPIRATORY: Tachypneic but no accessory muscle use. Clear to auscultation bilaterally. GASTROINTESTINAL: Abdomen soft, non-tender, large. Positive Bowel sounds. MUSCULOSKELETAL: Extremities without clubbing, cyanosis. 1+ bilateral lower extremity edema. - Urinary Catheter Management Indwelling Urethral Catheter Cath placed during this visit: no Reason for continuing: Other continuation reason Assessment and Plan - Assessment (1) Acute kidney injury superimposed on CKD Code(s): N17.9 - Acute kidney failure, unspecified; N18.9 - Chronic kidney disease, unspecified Status: Acute Plan: (1) Acute kidney injury superimposed on CKD: Code(s): N17.9 - Acute kidney failure, unspecified; N18.9 - Chronic kidney disease, unspecified Status: Acute Plan: Acute kidney injury with history of chronic kidney disease Started on CRRT as patient on multiple pressors, anuric, and severe metabolic acidosis. Right femoral vas cath Creatinine at 2.55 ->3.43 ->2.97 Anuric with urinary output of 30 ml overnight Plan Avoid nephrotoxins and dye studies Will follow urinary output and BMP HD done yesterday. Urine out put is low, will start Lasix. Follow the urine out put and BMP. HD as needed. (2) Respiratory failure: Now extubated. (3) Systemic Lupus Erythematosus: Check for Lupus activity.
[2018-08-05] MEDS ORDERED: Vancomycin Inj 1,750 MG in Sodium Chlor 0.9% Inj 500 ML IV.SIG ONE (12:00)
--- NOTE | 2018-08-05 19:20 | P.PNCA ---
Subjective Interval history: Patient is extubated. No complaints currently. She is only on dobutamine to maintain her cardiac output. She has been transitioned from CVVH to IHD. Yesterday TTE showed that she had evidence of a vegetation on her Tricuspid valve. Her WBC continue to remain high. ID has been consulted and given her essentially dependency on the device, no plans for extraction. Medications and Allergies Active Medications: Active Medications Acetaminophen (Tylenol) 650 mg PO Q6H PRN PRN Reason: PAIN 1-10 AND/OR FEVER >101F Acetaminophen (Tylenol) 650 mg PO UNSCH PRN PRN Reason: SEE LABEL COMMENTS Albuterol (Albuterol Neb (Prn)) 2.5 mg NEB Q2HR NEB PRN PRN Reason: SHORTNESS OF BREATH/WHEEZING Albuterol (Duoneb Neb (Osito)) 1 ampul NEB Q6HR NEB OSITO Last Admin: 08/05/18 14:10 Dose: 1 ampul Bisacodyl (Dulcolax Supp) 10 mg RECTAL DAILY PRN PRN Reason: SEVERE CONSITIPATION Chlorhexidine Gluconate (Chlorhexidine 2% Cloth) 3 pack TOPICAL DAILY@0400 [facility] Stop: 08/09/18 03:59 Last Admin: 08/05/18 04:51 Dose: 3 pack Chlorhexidine Gluconate (Chlorhexidine 2% Cloth) 3 pack TOPICAL DAILY@0400 PRN PRN Reason: Extra cloth needed Stop: 08/09/18 03:59 Clonidine HCl (Catapres) 0.1 mg PO UNSCH PRN PRN Reason: SEE LABEL COMMENTS Dextrose (D50w Vial) 50 ml IV.PUSH UNSCH PRN PRN Reason: PER HYPOGLYCEMIA PROTOCOL Diazepam (Valium) 10 mg PO Q8H PRN PRN Reason: anxiety Diphenhydramine HCl (Benadryl) 25 mg PO UNSCH PRN PRN Reason: SEE LABEL COMMENTS Furosemide (Lasix Inj) 40 mg IV.PUSH BID@0900,1800 [facility] Last Admin: 08/05/18 17:25 Dose: 40 mg Gelatin (Gelfoam 12 Mm/7 Mm Topical) 1 foam TOPICAL PRN PRN PRN Reason: help stop bleeding from site Gentamicin Sulfate (Gentamicin Inj) 20 mg OTHER WITH DIALYSIS PRN PRN Reason: Dwell Gentamycin Lock Last Admin: 08/04/18 17:51 Dose: 20 mg Glucagon (Glucagon Inj) 1 mg OTHER PRN PRN PRN Reason: for Hypoglycemia Protocol Heparin Sodium (Porcine) (Heparin Inj) 8,000 units OTHER WITH DIALYSIS PRN PRN Reason: for machine prime Heparin Sodium (Porcine) (Heparin Inj) 1,000 units OTHER WITH DIALYSIS PRN PRN Reason: Dwell Heparin to Fill Catheter Last Admin: 08/04/18 17:51 Dose: 1,000 units Hydrocortisone Sodium Succinate (Solucortef Inj) 100 mg IV.PUSH Q8HR [facility] Last Admin: 08/05/18 13:43 Dose: 100 mg Metronidazole/Sodium Chloride (Flagyl 500 Mg Inj) 100 mls @ 100 mls/hr IV.SIG Q8H [facility] Last Infusion: 08/05/18 18:07 Dose: Infused Norepinephrine Bitartrate 16 (mg/ Dextrose) 250 mls @ 41.25 mls/hr IV.CONT TITRATE PRN; Protocol PRN Reason: See Protocol Last Titration: 08/05/18 07:47 Dose: Infused Protamine Sulfate 250 mg/ (Sodium Chloride) 250 mls @ 5 mls/hr IV.CONT TITRATE PRN; Protocol PRN Reason: REGIONAL HEPARINIZATION Heparin Sodium/Dextrose (Heparin/D5w 25,000 U/250 Ml) 25,000 unit in 250 mls @ 5 mls/hr IV.CONT TITRATE PRN; Protocol PRN Reason: REGIONAL HEPARINIZATION Fentanyl (Fentanyl 10 Mcg/Ml Premix Drip) 2,500 mcg in 250 mls @ 5 mls/hr IV.SIG TITRATE PRN; Protocol PRN Reason: Per Protocol Last Titration: 08/05/18 09:00 Dose: Infused Aztreonam 2 gm/ Sodium (Chloride) 100 mls @ 200 mls/hr IV.SIG Q8H [facility] Last Infusion: 08/05/18 16:47 Dose: Infused Dobutamine HCl/Dextrose (Dobutamine 250 Mg/250 Ml Premix) 250 mg in 250 mls @ 12.927 mls/hr IV.CONT .[id number] [facility] Last Infusion: 08/05/18 09:54 Dose: Infused Albumin Human (Flexbumin 25% Inj) 100 mls @ 60 mls/hr IV.SIG WITH DIALYSIS PRN PRN Reason: hypotension / volume replace Sodium Chloride (Ns Inj) 1,000 mls @ 200 mls/hr OTHER .Q5H PRN PRN Reason: for dialyzer flush PRN Sodium Chloride (Ns Inj) 1,000 mls @ 0 mls/hr IV.CONT .Q0M PRN PRN Reason: hypotension / volume replace Sodium Chloride (Ns Inj) 1,000 mls @ 0 mls/hr OTHER .Q0M PRN PRN Reason: for prime and rinse back Insulin Aspart (Novolog Insulin Correctional Sugar Inj) 0 unit SQ Q6HR [facility]; Protocol Last Admin: 08/05/18 17:26 Dose: Not Given Lactulose (Lactulose Liq) 30 ml PO DAILY PRN PRN Reason: SEVERE CONSITIPATION Levothyroxine Sodium (Synthroid) 112 mcg PO DAILY [facility] Last Admin: 08/04/18 10:21 Dose: Not Given Levothyroxine Sodium (Synthroid Inj) 75 mcg IV.PUSH DAILY@0600 [facility] Last Admin: 08/05/18 05:08 Dose: 75 mcg Magnesium Oxide (Mag-Ox) 800 mg PO UNSCH PRN PRN Reason: For Magnesium 1.2 - 1.6 mg/dL Mannitol (Mannitol Inj) 12.5 gm IV.PUSH UNSCH PRN PRN Reason: hypotension / volume replace Miscellaneous Information (Misc Nursing Information) 1 [facility] Morphine Sulfate (Msir) 15 mg PO Q8HR PRN PRN Reason: Acute Pain Last Admin: 08/03/18 06:02 Dose: 15 mg Morphine Sulfate (Morphine Inj) 2 mg IV.PUSH Q4H PRN PRN Reason: BREAKTHROUGH PAIN Nitroglycerin (Nitrostat Sl) 0.4 mg SL Q5M PRN PRN Reason: CHEST PAIN Ondansetron HCl (Zofran Inj) 4 mg IV.PUSH Q6H PRN PRN Reason: NAUSEA OR VOMITING Last Admin: 08/03/18 12:10 Dose: 4 mg Ondansetron HCl (Zofran Inj) 4 mg IV.PUSH UNSCH PRN PRN Reason: NAUSEA OR VOMITING Pantoprazole Sodium (Protonix Inj) 40 mg IV.PUSH Q24H [facility] Last Admin: 08/05/18 07:47 Dose: 40 mg Pharmacy Profile Note (Vancomycin Consult Pharmacy) 1 each OTHER UNSCH PRN PRN Reason: Pharmacy to dose Senna/Docusate Sodium (Irais-Colace) 1 tab PO BID [facility] Last Admin: 08/05/18 09:41 Dose: Not Given Sennosides (Senokot) 17.2 mg PO Q12H PRN PRN Reason: Moderate Constipation Sodium Chloride (Ns Flush) 2 ml IV.FLUSH BID [facility] Last Admin: 08/05/18 09:41 Dose: 2 ml Sodium Chloride (Ns Flush) 2 ml IV.FLUSH PRN PRN PRN Reason: FLUSH AFTER USING IV ACCESS Sodium Chloride (Ns Flush) 5 ml IV.FLUSH PRN PRN PRN Reason: flush each lumen during HD Terbutaline Sulfate (Brethine Inj) 1 mg SQ UNSCH PRN PRN Reason: For Extravasation Allergies Allergy/AdvReac Type Severity Reaction Status Date / Time cephalexin Allergy Severe RASH,SWELLI Verified 07/13/18 17:57 NG Fish Containing Products Allergy Severe SWELLING Verified 07/13/18 17:57 IN THROAT, SOB ketorolac Allergy Severe RASH Verified 07/13/18 17:57 penicillin G Allergy Severe RASH,SWELLI Verified 07/13/18 17:57 NG prochlorperazine Allergy Mild DYSTONIC Verified 07/13/18 17:57 REACTION promethazine Allergy Mild DYSTONIC Verified 07/13/18 17:57 REACTION Home Medications Medication Instructions Recorded Confirmed Type levothyroxine [Synthroid] 112 mcg PO DAILY 05/08/18 07/24/18 History magnesium 100 mg PO QID 05/08/18 07/24/18 History pantoprazole [Protonix] 40 mg PO DAILY 05/08/18 07/24/18 History potassium chloride 40 meq PO TID 05/08/18 07/24/18 History potassium phosphate, monobasic 1,000 mg PO TID 05/08/18 07/24/18 History [K-Phos Original] prednisone 30 mg PO DAILY 05/08/18 07/24/18 History spironolactone 25 mg PO DAILY 05/08/18 07/24/18 History Physical Exam Vital signs: Vital Signs 08/04/18 20:00 08/04/18 20:53 08/04/18 20:57 Temperature 97.6 F Pulse Rate 71 73 Respiratory Rate 14 14 14 Blood Pressure 114/59 L Pulse Oximetry 93 L 93 L 08/04/18 21:00 08/04/18 22:00 08/04/18 23:00 Temperature Pulse Rate 72 73 78 Respiratory Rate 14 14 14 Blood Pressure 108/51 L 107/59 L 107/54 L Pulse Oximetry 92 L 93 L 93 L 08/04/18 23:42 08/05/18 00:00 08/05/18 01:00 Temperature 96.7 F L Pulse Rate 75 76 Respiratory Rate 14 14 14 Blood Pressure 106/58 L 101/56 L Pulse Oximetry 94 L 93 L 93 L 08/05/18 02:00 08/05/18 03:00 08/05/18 04:00 Temperature 96.9 F L Pulse Rate 86 77 85 Respiratory Rate 14 14 14 Blood Pressure 117/66 91/67 L 118/57 L Pulse Oximetry 93 L 94 L 94 L 08/05/18 04:10 08/05/18 04:12 08/05/18 05:00 Temperature Pulse Rate 87 82 Respiratory Rate 22 23 14 Blood Pressure 107/56 L Pulse Oximetry 94 L 96 08/05/18 06:00 08/05/18 07:00 08/05/18 07:57 Temperature Pulse Rate 84 79 Respiratory Rate 14 18 Blood Pressure 106/54 L Pulse Oximetry 96 95 95 08/05/18 08:00 08/05/18 08:38 08/05/18 08:45 Temperature 99.1 F Pulse Rate 84 87 90 Respiratory Rate Blood Pressure 114/57 L 117/62 Pulse Oximetry 95 91 L 08/05/18 09:00 08/05/18 09:01 08/05/18 09:04 Temperature Pulse Rate 88 87 Respiratory Rate 20 Blood Pressure Pulse Oximetry 92 L 92 L 08/05/18 09:15 08/05/18 09:30 08/05/18 09:45 Temperature Pulse Rate 87 86 85 Respiratory Rate Blood Pressure 115/57 L 111/59 L 115/59 L Pulse Oximetry 100 91 L 91 L 08/05/18 10:00 08/05/18 10:15 08/05/18 10:30 Temperature Pulse Rate 85 81 81 Respiratory Rate Blood Pressure 107/57 L 106/55 L 104/55 L Pulse Oximetry 91 L 92 L 92 L 08/05/18 10:45 08/05/18 11:00 08/05/18 11:15 Temperature Pulse Rate 82 82 83 Respiratory Rate Blood Pressure 104/59 L 109/57 L 111/58 L Pulse Oximetry 87 L 89 L 90 L 08/05/18 11:30 08/05/18 11:45 08/05/18 12:00 Temperature 99 F Pulse Rate 84 83 81 Respiratory Rate Blood Pressure 115/63 116/63 112/62 Pulse Oximetry 92 L 89 L 92 L 08/05/18 12:15 08/05/18 12:30 08/05/18 12:45 Temperature Pulse Rate 84 83 82 Respiratory Rate Blood Pressure 114/68 117/68 114/68 Pulse Oximetry 90 L 89 L 90 L 08/05/18 13:00 08/05/18 13:15 08/05/18 13:30 Temperature Pulse Rate 81 79 79 Respiratory Rate Blood Pressure 117/66 107/61 104/56 L Pulse Oximetry 92 L 92 L 92 L 08/05/18 13:45 08/05/18 14:00 08/05/18 14:15 Temperature Pulse Rate 78 78 80 Respiratory Rate Blood Pressure 104/56 L 110/57 L 113/61 Pulse Oximetry 91 L 99 90 L 08/05/18 14:30 08/05/18 14:45 08/05/18 15:00 Temperature Pulse Rate 79 77 75 Respiratory Rate Blood Pressure 106/57 L 111/55 L 108/59 L Pulse Oximetry 92 L 93 L 90 L 08/05/18 15:15 08/05/18 15:30 08/05/18 15:45 Temperature Pulse Rate 74 76 77 Respiratory Rate Blood Pressure 97/52 L 98/54 L 98/61 L Pulse Oximetry 84 L 83 L 85 L 08/05/18 16:00 08/05/18 16:15 08/05/18 17:00 Temperature Pulse Rate 78 75 75 Respiratory Rate Blood Pressure 113/68 108/57 L 112/60 Pulse Oximetry 100 100 100 08/05/18 18:00 08/05/18 19:00 Temperature Pulse Rate 73 79 Respiratory Rate Blood Pressure 115/63 118/66 Pulse Oximetry 100 100 Intake & Output 08/05/18 08/05/18 08/06/18 06:59 18:59 06:59 Intake Total 900 / 900 1651.5 / 1651.5 Output Total 150 / 150 150 / 150 Balance 750 / 750 1501.5 / 1501.5 Weight 90 kg Intake: IV 900 / 900 1411.5 / 1411.5 DOBUTamine 250 MG/250 ML Premix 112 / 112 250 mg In 250 ml @ 2.5 MCG/KG/ MIN 12.927 mls/hr IV.CONT . [id number] [facility] Rx#:[id number] DOPamine 800 MG/500 ML Premix 0 / 0 800 mg In 500 ml @ 3 MCG/KG/MIN 9.696 mls/hr IV.CONT TITRATE PRN Rx#:[id number] Versed Inj 50 mg In 50 ml @ 2 50 / 50 40 / 40 MG/HR 2 mls/hr IV.CONT TITRATE PRN Rx#:[id number] Levophed Inj 16 MG In D5W Inj 0 / 0 234 ML @ 44 MCG/MIN 41.25 mls/ hr IV.CONT TITRATE PRN Rx#: [id number] Neosynephrine Inj 40 MG In D5W 112 / 112 Inj 496 ML @ 100 MCG/MIN 75 mls /hr IV.CONT TITRATE PRN Rx#: [id number] Diprivan 1000 mg/100 ml Inj 1, 200 / 200 80 / 80 000 mg In 100 ml @ 5 MCG/KG/MIN 2.585 mls/hr IV.CONT TITRATE PRN Rx#:[id number] Pitressin Inj 40 UNIT In D5W 0 / 0 Inj 98 ML @ 0.04 UNITS/MIN 6 mls/hr IV.CONT CONT [facility] Rx#: [id number] Azactam Inj 2 GM In NS Inj 100 200 / 200 200 / 200 ML @ 200 mls/hr IV.SIG Q8H [facility] Rx#:[id number] Vancomycin Inj 1,750 MG In NS 517.5 / 517.5 Inj 500 ML @ 250 mls/hr IV.SIG ONCE ONE Rx#:[id number] fentaNYL 10 mcg/mL Premix Drip 250 / 250 150 / 150 2,500 mcg In 250 ml @ 50 MCG/HR 5 mls/hr IV.SIG TITRATE PRN Rx #:[id number] Flagyl 500 MG Inj 100 ML @ 100 200 / 200 200 / 200 mls/hr IV.SIG Q8H [facility] Rx#: [id number] Oral 240 / 240 Output: Urine Amount (Catheter) 150 / 150 150 / 150 Indwelling Urethral Catheter 150 / 150 150 / 150 - Constitutional no acute distress - Routine HEENT Exam Head: Present: normocephalic ENT: Present: mucous membranes moist - Routine Neck Exam Absent: JVD - Routine Cardiovascular Exam Present: RRR, S1, S2, murmur (1-2/6 ES at LLSB) - Routine Abdominal Exam Present: soft, normoactive bowel sounds - Routine Extremities Exam Absent: edema - Routine Neurological Exam Present: alert, oriented X3 - Urinary Catheter Management Indwelling Urethral Catheter Cath placed during this visit: no Reason for continuing: Other continuation reason Results 08/05/18 03:36 08/05/18 03:36 Cardiac Enzymes 08/04/18 08/04/18 08/05/18 Range/Units 03:55 14:40 03:36 AST 254 H 183 H 121 H (15-37) U/L Coagulation 08/03/18 08/03/18 08/04/18 Range/Units 20:20 20:20 14:55 PT 17.4 H 18.7 H (9.8-11.6) sec APTT Greater than 277.5 H* 29.2 D (24.3-30.1) sec CBC 08/04/18 08/04/18 08/05/18 Range/Units 03:55 14:40 03:36 WBC 42.3 H 39.3 H 33.6 H (4.0-11.0) th/mm3 RBC 3.63 L 3.00 L 2.59 L (4.00-5.30) mil/mm3 Hgb 10.2 L 8.4 L 7.3 L (11.6-15.3) gm/dL Hct 30.8 L 25.9 L 22.7 L (35.0-46.0) % Plt Count 82 L D 52 L D 54 L (150-450) th/mm3 Neut # (Auto) 37.0 H (1.8-7.7) th/mm3 Lymph # (Auto) 1.5 (1.0-4.8) th/mm3 Slope # (Auto) 3.5 H (0.0-0.9) th/mm3 Eos # (Auto) 0.0 (0.0-0.4) th/mm3 Baso # (Auto) 0.3 H (0.0-0.2) th/mm3 Comprehensive Metabolic Panel 08/04/18 08/04/18 08/05/18 Range/Units 03:55 14:40 03:36 Sodium 141 141 141 (136-145) meq/L Potassium 2.7 L* 4.9 D 4.0 D (3.5-5.1) meq/L Chloride 100 D 99 101 (98-107) meq/L Carbon Dioxide 26.7 D 38.1 H D 30.4 (21.0-32.0) meq/L BUN 24 H 25 H 28 H (7-18) mg/dL Creatinine 2.97 H 2.64 H 2.76 H (0.50-1.00) mg/dL Calcium 7.7 L 6.5 L* D 6.6 L* (8.5-10.1) mg/dL AST 254 H 183 H 121 H (15-37) U/L ALT 125 H 121 H 104 H (10-53) U/L Alkaline Phosphatase 61 59 58 (45-117) U/L Total Protein 5.7 L D 5.3 L 5.3 L (6.4-8.2) g/dL Albumin 3.1 L D 2.9 L 2.7 L (3.4-5.0) g/dL Intake and Output 08/05/18 08/05/18 08/05/18 06:59 14:59 22:59 Intake Total 600 / 600 694 / 694 957.5 / 957.5 Output Total 150 / 150 150 / 150 Balance 450 / 450 694 / 694 807.5 / 807.5 Intake: IV 600 / 600 694 / 694 717.5 / 717.5 DOBUTamine 250 MG/250 ML Premix 112 / 112 250 mg In 250 ml @ 2.5 MCG/KG/ MIN 12.927 mls/hr IV.CONT . [id number] [facility] Rx#:[id number] DOPamine 800 MG/500 ML Premix 0 / 0 800 mg In 500 ml @ 3 MCG/KG/MIN 9.696 mls/hr IV.CONT TITRATE PRN Rx#:[id number] Versed Inj 50 mg In 50 ml @ 2 50 / 50 40 / 40 MG/HR 2 mls/hr IV.CONT TITRATE PRN Rx#:[id number] Levophed Inj 16 MG In D5W Inj 0 / 0 234 ML @ 44 MCG/MIN 41.25 mls/ hr IV.CONT TITRATE PRN Rx#: [id number] Neosynephrine Inj 40 MG In D5W 112 / 112 Inj 496 ML @ 100 MCG/MIN 75 mls /hr IV.CONT TITRATE PRN Rx#: [id number] Diprivan 1000 mg/100 ml Inj 1, 100 / 100 80 / 80 000 mg In 100 ml @ 5 MCG/KG/MIN 2.585 mls/hr IV.CONT TITRATE PRN Rx#:[id number] Pitressin Inj 40 UNIT In D5W 0 / 0 Inj 98 ML @ 0.04 UNITS/MIN 6 mls/hr IV.CONT CONT [facility] Rx#: [id number] Azactam Inj 2 GM In NS Inj 100 100 / 100 100 / 100 100 / 100 ML @ 200 mls/hr IV.SIG Q8H [facility] Rx#:[id number] Vancomycin Inj 1,750 MG In NS 517.5 / 517.5 Inj 500 ML @ 250 mls/hr IV.SIG ONCE ONE Rx#:[id number] fentaNYL 10 mcg/mL Premix Drip 250 / 250 150 / 150 2,500 mcg In 250 ml @ 50 MCG/HR 5 mls/hr IV.SIG TITRATE PRN Rx #:[id number] Flagyl 500 MG Inj 100 ML @ 100 100 / 100 100 / 100 100 / 100 mls/hr IV.SIG Q8H [facility] Rx#: [id number] Oral 240 / 240 Output: Urine Amount (Catheter) 150 / 150 150 / 150 Indwelling Urethral Catheter 150 / 150 150 / 150 Other: Weight 90 kg - Imaging and Cardiology Imaging: Impressions Chest X-Ray 08/03/18 00:00 CONCLUSION: Endotracheal tube in good position. Right IJ line in right atrium. Basilar and dependent airspace disease in the lungs. Chest X-Ray 08/04/18 07:04 CONCLUSION: Bibasilar pleural-parenchymal opacity likely representing small pleural effusions with associated atelectasis and/or airspace consolidation. The opacity at the left lung base has increased since yesterday's study. Chest X-Ray 08/05/18 06:00 CONCLUSION: Increased density at the bases bilaterally likely related to a combination of atelectasis, consolidation and possible effusions. Assessment and Plan - Plan 42 year old with Brugada s/p ICD placement and multiple infections leading to prior device extraction who presented recently with presyncopal episode and was found to be in septic shock. Her device malfunctioned and she was take to the chemical laboratory assistant where here RA and RV leads were extracted and replaced. The device was not removed. The patient was placed in VDD 50, upper rate 130 to allow for atrial recovery. Brugada syndrome s/p ICD- continues to pace. Device check shows adequate parameters 08/04. No pneumothorax on CXRAY. No ventricular arrythmias. 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 She has had two previous device extractions and on 08/03 underwent lead extraction and replacement. Given her shock presentation during device malfunction, it would be risky to extract the device currently. ID is following , plan is to allow the patient to hopefully clear the endocarditis with IV abx. Brugada syndrome s/p ICD- continues to pace. Device check shows adequate parameters 08/04. No pneumothorax on CXRAY. No ventricular arrythmias. Acute Renal Failure- transition to IHD Acute Respiratory Failure-extubated. Septic shock- improving, off pressors. On very low dose Dobutamine to augment cardiac output.
[2018-08-05] MEDS: Morphine Sulfate Inj 2 MG/ML Vial IV.PUSH PRN (20:02)
[2018-08-06] MEDS: Aztreonam Inj 2 GM in Sodium Chloride 0.9% Inj 100 ML IV.SIG SCH ×3 (01:19→16:47)
[2018-08-06] MEDS: Morphine Sulfate 15 MG IR Tablet PO PRN ×2 (01:19→21:49)
--- NOTE | 2018-08-06 04:27 | XR ---
EXAM DATE: 08/06/2018 6:00 AM EDT AGE/SEX: 42 years / Female INDICATIONS: Shortness of breath, possible pulmonary disease. CLINICAL DATA: This is the patient's subsequent encounter. Patient reports that signs and symptoms h ave been present for 4 - 6 days and indicates a pain score of Nonresponsive. MEDICAL/SURGICAL HISTORY: Hypertension. Diabetes. Lupus. Pacemaker. COMPARISON: [facility], CHEST 1V SINGLE AP, 08/05/2018. . FINDINGS: Patient has been extubated with right IJ central line removed. Stable dual lead AICD device. Continue d bilateral lower lung zone airspace disease and likely small effusions. Cardiomediastinal contours a re stable. Remainder of exam is unchanged. CONCLUSION: 1. Patient has been extubated with right IJ central line removed. 2. Otherwise, no significant interval change with continued bilateral lower lung zone airspace disea se and likely small pleural effusions. Electronically signed by: Gil Valente MD 08/06/2018 4:26 AM EDT
[2018-08-06] MEDS: Morphine Sulfate Inj 2 MG/ML Vial IV.PUSH PRN ×3 (06:45→16:48)
[2018-08-06] MEDS: Hydrocortisone Sod Succinate 100 MG Vial IV.PUSH SCH ×3 (06:45→21:49)
[2018-08-06] MEDS: Senna/Docusate Sodium 8.6/50 MG Tablet PO SCH ×3 (06:48→21:49)
[2018-08-06] MEDS: Chlorhexidine Gluconate 2% 1 Pack (2 Cloths) TOPICAL SCH (06:48)
[2018-08-06 07:16] LABS: Mean Corpuscular HGB Conc 31.8 % (32.0-36.0); Mean Corpuscular Hemoglobin 28.3 pg (27.0-34.0); Mean Corpuscular Volume 88.8 fL (80.0-100.0); Mean Platelet Volume 9.7 fL (7.0-11.0); Platelet Count 82 th/mm3 (150-450); Red Cell Distribution Width 15.1 % (11.6-17.2); White Blood Count 35.6 th/mm3 (4.0-11.0)
[2018-08-06 07:20] LABS: Calcium 6.6 mg/dL (8.5-10.1); Carbon Dioxide 23.9 meq/L (21.0-32.0); Hematocrit 21.3 % (35.0-46.0); Hemoglobin 6.8 gm/dL (11.6-15.3); Potassium 3.8 meq/L (3.5-5.1); Total Protein 5.9 g/dL (6.4-8.2)
--- NOTE | 2018-08-06 10:16 | P.PNCC ---
Subjective Subjective Remarks/Hospital Course: 42-year-old female with past medical history of systemic lupus erythematosus, Crohn's disease, hypothyroidism, endometriosis, gastroparesis, chronic kidney disease stage III, interstitial cystitis, Brugada syndrome with ICD replaced 06/27/[address] Cervantes. 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 She states she was taking a shower this evening and felt weak and presyncopal. She was transported by [facility] with heart rate 30s to 40s. Upon arrival she had ventricular paced rhythm at a rate of 40. Her blood pressure was 78/35. Transcutaneous pacer was placed with backup rate of 60. She was started on dopamine which has been titrated up to 16 mcg/kg/min with heart rate in the 70s-80s and blood pressure 93/51. Her pacemaker was interrogated and was noted to be intermittently capturing. I do not appreciate damage to lead or definite migration on chest x-ray though image is rotated c/ w prior. Dr. Nowak discussed with Dr. English who recommended Dopamine with backup transcutaneous pacing and consultation with Dr. Cervantes in the morning. Patient states that she began feeling weak about a week and a half ago when her Norvasc was increased. It was initially increased to 10 mg p.o. daily. Was recently admitted 07/24-07/25 and at that time was told to take Norvasc 5 mill grams p.o. twice daily which she states she has been taking as prescribed. She denies chest pain or shortness of breath. She became nauseated and vomited small amount of emesis, nonbloody nonbilious after arrival to the ED. She states she has some tenderness of the chest wall, noted some drainage 2 days ago from anterior incision but I do not see any now. She states yesterday she had a temp 102.7. She is afebrile in the ED without leukocytosis. She does have history of pocket infection in december 2017 and 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 and then replaced in [facility] (original device placed 10/03/17). She had additional chest wall infection 02/2018 with MRSA resulting in device removal and wound vac placement. ICD was replaced 06/27/[address] Cervantes. She states she has a prior history of menorrhagia and has had vaginal bleeding for about a month. It has been heavier over the last couple of days changing 1 pad per hour. Her hemoglobin is 9.6, previously 9.7 on 07/25. SUBJ 08/03: Patient continues to be external pacer dependent. Currently on 20mcg/kg/min of dopamine. When the pacer rate is decreased patient's heart rate decreases to mid 20s and she is symptomatic. I have emergently placed a right IJ central line to administer vasoactive medication. Add Isuprel. Discussed personally with Dr. Helen PEREZ. I reviewed the previous report from [facility] in the ED the rate was reduced to VVI 30 as the patient complained about pain with pacing. We have contacted [facility] again to increase the backup rate to 60 At about 1.30 pm I was called emergently to the bedside as the patient sustained tonic-clonic seizures for approximately 30 sec, Ativan 2 mg push was given with resolution of seizure. Prior to this patient had been placed on Isuprel at 8 mcg/min, dopamine running at 20 mcg/kg/min, and Levophed at 20 mcg/ kg/min. Patient appear to be postictal and unresponsive her heart rate was approximately 30 bpm manually. Because of hemodynamic instability and lack of airway protection and anticipated pacemaker placement I proceeded with endotracheal intubation and placed on mechanical ventilation. Post intubation I also placed an arterial line which showed actual heart rate to be in the 30s and patient remained in severe shock on multiple pressors with a map 50-55. I added epinephrine infusion at 5 mcg/min and rapidly titrated up to 10 mcg/min. Levophed was increased to 30 mcg/min. An ABG showed severe metabolic acidosis pH of 6.9 base excess was -20. 4 Amps of bicarb IVP given, and bicarb infusion started. Additional fluid resuscitation was carried out. Bedside echo shows heart beating only about 30 bpm but good contractility, EF> 60%. I discussed this again with Dr. Cervantes. Even though patient is hemodynamically unstable her only chance of survival is in emergent pacemaker placement as she is not capturing with 120 MA on transcutaneous pacer, and patient remained in shock and heart rate in 30s despite maximum dose of Isuprel and dopamine and epinephrine. I accompanied the patient to the [facility] and continued resuscitation with intermittent epinephrine pushes 1 amp of atropine push. I stayed at the bedside of the patient until the temporary pacemaker was placed by Dr. Cervantes on the fluoroscopy and patient had good capture. I also updated the mother about the very critical nature of the patient's condition and high probability that patient may not survive this episode as she is extremely acidotic and in profound shock 08/04: Patient was in profound shock yesterday up to 5 vasopressor and inotropic agents. See notes from yesterday. Patient had emergency temporary pacemaker placed in the [facility] under fluoroscopy followed by permanent pacemaker placement. At that time she remained on high-dose pressors, for correction of acidosis and anuria started on CVVH. Overnight has started to improve. Currently weaned off dopamine and Isuprel. Inherent sinus rhythm heart rate 65 bpm not paced at this time. Currently remains on epinephrine at 3 mcg/min, Levophed at 3 mcg/min, Caleb-Synephrine and Afrin at 50 mcg/min and vasopressin 0.04 international units. Map consistently above 80. Patient wakes up follows commands despite being sedated with Versed and fentanyl. lactate improved from 14.3 to 4. Remains anuric 08/05: Patient remains intubated sedated tolerating CPAP today. All pressors are off now remains on dobutamine at 2.5 mcg/min to maintain cardiac index more than 2. Urine output slightly improved 200 mL into 24 hours. Had CVVH transition to HD yesterday 3 L removed. CBC count improved from 39.3-33.6. 2D echo showed tricuspid vegetation. ID consulted 08/06: Patient was extubated yesterday tolerating well. Currently on simple mask oxygen saturation 92-93%. Hemoglobin is 6.8 will transfuse 1 unit PRBC with hemodialysis today. Creatinine has increased from 2.4-4.4 today. 350 mL urine output in 24 hours. Getting HD today per Dr. Arrieta. Increase in WBC count noted ID is following. Objective Vital Signs / I&O: Vital Signs 08/05/18 10:15 08/05/18 10:30 08/05/18 10:45 Temperature Pulse Rate 81 81 82 Respiratory Rate Blood Pressure 106/55 L 104/55 L 104/59 L Pulse Oximetry 92 L 92 L 87 L 08/05/18 11:00 08/05/18 11:15 08/05/18 11:30 Temperature Pulse Rate 82 83 84 Respiratory Rate Blood Pressure 109/57 L 111/58 L 115/63 Pulse Oximetry 89 L 90 L 92 L 08/05/18 11:45 08/05/18 12:00 08/05/18 12:15 Temperature 99 F Pulse Rate 83 81 84 Respiratory Rate Blood Pressure 116/63 112/62 114/68 Pulse Oximetry 89 L 92 L 90 L 08/05/18 12:30 08/05/18 12:45 08/05/18 13:00 Temperature Pulse Rate 83 82 81 Respiratory Rate Blood Pressure 117/68 114/68 117/66 Pulse Oximetry 89 L 90 L 92 L 08/05/18 13:15 08/05/18 13:30 08/05/18 13:45 Temperature Pulse Rate 79 79 78 Respiratory Rate Blood Pressure 107/61 104/56 L 104/56 L Pulse Oximetry 92 L 92 L 91 L 08/05/18 14:00 08/05/18 14:15 08/05/18 14:30 Temperature Pulse Rate 78 80 79 Respiratory Rate Blood Pressure 110/57 L 113/61 106/57 L Pulse Oximetry 99 90 L 92 L 08/05/18 14:45 08/05/18 15:00 08/05/18 15:15 Temperature Pulse Rate 77 75 74 Respiratory Rate Blood Pressure 111/55 L 108/59 L 97/52 L Pulse Oximetry 93 L 90 L 84 L 08/05/18 15:30 08/05/18 15:45 08/05/18 16:00 Temperature Pulse Rate 76 77 78 Respiratory Rate Blood Pressure 98/54 L 98/61 L 113/68 Pulse Oximetry 83 L 85 L 100 08/05/18 16:15 08/05/18 17:00 08/05/18 18:00 Temperature Pulse Rate 75 75 73 Respiratory Rate Blood Pressure 108/57 L 112/60 115/63 Pulse Oximetry 100 100 100 08/05/18 19:00 08/05/18 20:00 08/05/18 21:00 Temperature 98.3 F Pulse Rate 79 83 75 Respiratory Rate 22 22 Blood Pressure 118/66 122/68 109/57 L Pulse Oximetry 100 95 97 08/05/18 21:09 08/05/18 22:00 08/05/18 23:00 Temperature Pulse Rate 76 83 73 Respiratory Rate 22 22 20 Blood Pressure 99/58 L 100/58 L Pulse Oximetry 94 L 97 93 L 08/05/18 23:15 08/05/18 23:30 08/05/18 23:45 Temperature Pulse Rate 71 68 70 Respiratory Rate Blood Pressure 94/52 L 97/52 L 92/50 L Pulse Oximetry 96 95 92 L 08/06/18 00:00 08/06/18 00:15 08/06/18 00:30 Temperature 98.5 F Pulse Rate 70 69 71 Respiratory Rate 18 Blood Pressure 95/52 L 96/51 L 103/57 L Pulse Oximetry 94 L 95 95 08/06/18 00:45 08/06/18 01:00 08/06/18 01:15 Temperature 98.3 F Pulse Rate 69 72 72 Respiratory Rate 18 Blood Pressure 94/55 L 105/58 L 108/60 Pulse Oximetry 94 L 93 L 97 08/06/18 01:30 08/06/18 01:45 08/06/18 02:00 Temperature Pulse Rate 72 72 70 Respiratory Rate 18 Blood Pressure 110/61 109/62 109/60 Pulse Oximetry 93 L 98 95 08/06/18 02:15 08/06/18 02:30 08/06/18 02:45 Temperature Pulse Rate 71 71 71 Respiratory Rate Blood Pressure 105/56 L 107/59 L 113/56 L Pulse Oximetry 99 97 98 08/06/18 03:00 08/06/18 03:15 08/06/18 03:30 Temperature Pulse Rate 71 70 70 Respiratory Rate Blood Pressure 115/59 L 114/59 L 101/53 L Pulse Oximetry 96 97 90 L 08/06/18 03:45 08/06/18 04:00 08/06/18 04:03 Temperature Pulse Rate 70 71 70 Respiratory Rate 20 Blood Pressure 103/57 L 105/59 L Pulse Oximetry 96 95 08/06/18 04:15 08/06/18 04:30 08/06/18 04:45 Temperature Pulse Rate 69 71 71 Respiratory Rate Blood Pressure 97/51 L 107/59 L 119/56 L Pulse Oximetry 89 L 92 L 86 L 08/06/18 05:00 08/06/18 05:15 08/06/18 06:00 Temperature 98.9 F Pulse Rate 70 71 71 Respiratory Rate 18 Blood Pressure 112/58 L 102/54 L 107/59 L Pulse Oximetry 91 L 84 L 92 L 08/06/18 06:47 08/06/18 07:00 08/06/18 09:36 Temperature 98.9 F Pulse Rate 71 73 Respiratory Rate 14 20 20 Blood Pressure 114/79 Pulse Oximetry 92 L Intake & Output 08/05/18 08/06/18 08/06/18 18:59 06:59 18:59 Intake Total 1651.5 / 1651.5 350 / 350 Output Total 150 / 150 200 / 200 Balance 1501.5 / 1501.5 150 / 150 Weight 98 kg Intake: IV 1411.5 / 1411.5 DOBUTamine 250 MG/250 ML Premix 112 / 112 250 mg In 250 ml @ 2.5 MCG/KG/ MIN 12.927 mls/hr IV.CONT . [id number] SHUKRI Rx#:[id number] DOPamine 800 MG/500 ML Premix 0 / 0 800 mg In 500 ml @ 3 MCG/KG/MIN 9.696 mls/hr IV.CONT TITRATE PRN Rx#:[id number] Versed Inj 50 mg In 50 ml @ 2 40 / 40 MG/HR 2 mls/hr IV.CONT TITRATE PRN Rx#:[id number] Levophed Inj 16 MG In D5W Inj 0 / 0 234 ML @ 44 MCG/MIN 41.25 mls/ hr IV.CONT TITRATE PRN Rx#: [id number] Neosynephrine Inj 40 MG In D5W 112 / 112 Inj 496 ML @ 100 MCG/MIN 75 mls /hr IV.CONT TITRATE PRN Rx#: [id number] Diprivan 1000 mg/100 ml Inj 1, 80 / 80 000 mg In 100 ml @ 5 MCG/KG/MIN 2.585 mls/hr IV.CONT TITRATE PRN Rx#:[id number] Pitressin Inj 40 UNIT In D5W 0 / 0 Inj 98 ML @ 0.04 UNITS/MIN 6 mls/hr IV.CONT CONT SHUKRI Rx#: [id number] Azactam Inj 2 GM In NS Inj 100 200 / 200 ML @ 200 mls/hr IV.SIG Q8H SHUKRI Rx#:[id number] Vancomycin Inj 1,750 MG In NS 517.5 / 517.5 Inj 500 ML @ 250 mls/hr IV.SIG ONCE ONE Rx#:[id number] fentaNYL 10 mcg/mL Premix Drip 150 / 150 2,500 mcg In 250 ml @ 50 MCG/HR 5 mls/hr IV.SIG TITRATE PRN Rx #:[id number] Flagyl 500 MG Inj 100 ML @ 100 200 / 200 mls/hr IV.SIG Q8H SHUKRI Rx#: [id number] Oral 240 / 240 350 / 350 Output: Urine Amount (Catheter) 150 / 150 200 / 200 Indwelling Urethral Catheter 150 / 150 200 / 200 Result Diagrams: 08/06/18 05:22 08/06/18 05:22 Objective Remarks: GENERAL: Chronically ill-appearing overweight female lying in bed on simple mask SKIN: Warm and dry. HEAD: Atraumatic. Normocephalic. EYES: Pupils equal and round. No scleral icterus. No injection or drainage. ENT: No nasal bleeding or discharge. NECK: Trachea midline. No JVD. No meningismus. CARDIOVASCULAR: Heart rate 70 bpm, paced, 1/6 systolic murmur lsb. Baseline rhythm chronic A. fib. Left upper chest pacemaker dressing intact. CHEST: There is an anterior incision from pacemaker placement that is healed. No purulence. There is no erythema or warmth. There is a scar on lateral chest wall that is healed. The scar tissue is tender but there is no erythema or exudate. RESPIRATORY: On simple FM. Air entry equal bilaterally few coarse rhonchi no wheezes no crackles GASTROINTESTINAL: Abdomen soft, non-tender, nondistended. Bowel sounds present peer MUSCULOSKELETAL: 1+ bilateral lower extremity edema. NEUROLOGICAL: Awake and alert, oriented x3 conversant. No obvious cranial nerve deficits. Motor grossly within normal limits. Follows commands x4 Assessment and Plan - Problem List (1) Hypotension Code(s): I95.9 - Status: Acute (2) CKD (chronic kidney disease) stage 3, GFR 30-59 ml/min Code(s): N18.3 - Status: Chronic (3) Symptomatic bradycardia Code(s): R00.1 - Status: Acute (4) Acute hypokalemia Code(s): E87.6 - Status: Acute (5) Chronic pain Code(s): G89.29 - Status: Chronic (6) Medical non-compliance Code(s): Z91.19 - Status: Acute - Assessment and Plan Plan: NEURO: Chronic pain Possible seizures Restarted on morphine 15 mg p.o. every 8 hours and as needed Valium 10 mg p.o. every 8 hours EEG only if recurrent seizures, Seizure-like activity noticed on 08/03/2018 most likely secondary to decreased perfusion RESP: Acute hypoxemic respiratory failure-improving Extubated 08/05/2018, tolerating well, DuoNeb q6 and PRN Broad spectrum ABX as below Intubated 08/03/2018 for probable seizure, altered mental status and severe cardiogenic shock PH at the time of intubation was 6.9, lactic acid was 15 Acidosis has resolved continue to wean FiO2 as tolerated Continue EzPAP, IS CV: Severe cardiogenic shock-resolved Symptomatic bradycardia with hypotension-resolved AICD malfunction/probable dislodged pacemaker lead, status post lead extraction and placement of new leads Severe lactic acidosis-resolved Infective endocarditis involving tricuspid valve Brugada syndrome s/p AICD Remains off all pressors and inotropes Temporary pacer followed by pacemaker lead extraction and new lead placements by . 2D echo shows tricuspid valve endocarditis, ID following-antibiotics as below CVVH started 08/03 due to severe acidosis, now transition to HD Prior ICD pocket infection in December 2017 and February 2018. Most recently replaced 06/27/[address] Cervantes. Per device rep she did not follow-up for scheduled outpatient interrogation following device placement. Now interrogation shows pacemaker intermittently capturing per [employer] rep. Holding spironolactone 25 mg p.o. daily in view of hypotension, renal failure Status post extensive fluid resuscitation, now HD with fluid removal Essential hypertension. 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 Hasn't followed up with gynecology in over a year. Endometriosis Beta hCG is negative. Hemoglobin is stable, can follow-up as an outpatient with gynecology. FEN/RENAL: Acute on chronic kidney disease with anuria Chronic kidney disease stage III Started on CVVH 08/03/18 due to anuria and severe metabolic acidosis CVVH changed to hemodialysis 08/04/18 as the blood pressure improved. Urine output slightly improved Nephrology Dr. Arrieta Patient states she has not had renal biopsy. She has been followed by nephrology at [facility]. Hypokalemia Potassium replacement ID: Tricuspid valve endocarditis Septic and cardiogenic shock History of ICD pocket infection most recently with MRSA February 2018. She has undergone device removal on 2 prior occasions. Most recently was removed in February 2018 with wound VAC placement. Device replaced 06/27/18. She reported fever 102.7, however she is afebrile here. Continue renally dosed vancomycin, aztreonam, Flagyl 2D echo showed tricuspid valve endocarditis 1.7 x 0.5 Continue medical management. Leukocytosis slightly worsened, steroids reduced RHEUM: Systemic lupus erythematosus On chronic steroids On chronic prednisone 30 mg p.o. daily for >2 years. In view of shock will place on hydrocortisone 100 mill grams IV every 8 hours. Hold prednisone Scheduled to follow-up with [facility] rheumatology end of August. Start tapering-stress dose hydrocortisone today, reduce to 50 every 8 HEME: Chronic anemia Thrombocytopenia most likely secondary to DIC/sepsis Transfuse blood and blood products as needed Transfuse 1 unit PRBC today with hemodialysis 08/06/2018 ENDO: Hypothyroidism Continue Synthroid 112 mcg p.o. daily-changed to IV yesterday, will change back to p.o. Normal TSH. PROPH: SCDs for DVT prophylaxis. Hold pharmacologic DVT prophylaxis at this time due to recent invasive procedure, thrombocytopenia Protonix 40 mg IV daily for stress ulcer prophylaxis. ACCESS: New right IJ central line, right radial arterial line 08/03/18- DCd right femoral Vas-Cath placed 08/03/18 Patient is critically ill with severe septic shock though now stable and improving. Requires admission to ICU for close hemodynamic monitoring. She is still at high risk for further deterioration and . Transfuse 1 unit PRBC today, along with hemodialysis Full Code Critical care time 35 minutes discontinuously exclusive of separately billable procedures. Code Status: FULL
[2018-08-06] MEDS: Insulin NovoLOG Aspart Correctional Sugar Inj SQ SCH ×5 (10:33→17:17)
[2018-08-06] MEDS: Pantoprazole Inj 40 MG Vial IV.PUSH SCH (10:51)
[2018-08-06] MEDS ORDERED: Calcium Gluconate Inj 1 GM in Sodium Chlor 0.9% Inj 90 ML IV.SIG ONE (11:24)
--- NOTE | 2018-08-06 11:24 | P.PNNP ---
Subjective Interval history: Sitting up in bed. Mild shortness of breath. Creatinine elevated at 4.39 with low urinary output. <LydiaCher - Last Filed: 08/06/18 11:13> Physical Exam Vital signs: Vital Signs 08/05/18 11:15 08/05/18 11:30 08/05/18 11:45 Temperature Pulse Rate 83 84 83 Respiratory Rate Blood Pressure 111/58 L 115/63 116/63 Pulse Oximetry 90 L 92 L 89 L 08/05/18 12:00 08/05/18 12:15 08/05/18 12:30 Temperature 99 F Pulse Rate 81 84 83 Respiratory Rate Blood Pressure 112/62 114/68 117/68 Pulse Oximetry 92 L 90 L 89 L 08/05/18 12:45 08/05/18 13:00 08/05/18 13:15 Temperature Pulse Rate 82 81 79 Respiratory Rate Blood Pressure 114/68 117/66 107/61 Pulse Oximetry 90 L 92 L 92 L 08/05/18 13:30 08/05/18 13:45 08/05/18 14:00 Temperature Pulse Rate 79 78 78 Respiratory Rate Blood Pressure 104/56 L 104/56 L 110/57 L Pulse Oximetry 92 L 91 L 99 08/05/18 14:15 08/05/18 14:30 08/05/18 14:45 Temperature Pulse Rate 80 79 77 Respiratory Rate Blood Pressure 113/61 106/57 L 111/55 L Pulse Oximetry 90 L 92 L 93 L 08/05/18 15:00 08/05/18 15:15 08/05/18 15:30 Temperature Pulse Rate 75 74 76 Respiratory Rate Blood Pressure 108/59 L 97/52 L 98/54 L Pulse Oximetry 90 L 84 L 83 L 08/05/18 15:45 08/05/18 16:00 08/05/18 16:15 Temperature Pulse Rate 77 78 75 Respiratory Rate Blood Pressure 98/61 L 113/68 108/57 L Pulse Oximetry 85 L 100 100 08/05/18 17:00 08/05/18 18:00 08/05/18 19:00 Temperature Pulse Rate 75 73 79 Respiratory Rate Blood Pressure 112/60 115/63 118/66 Pulse Oximetry 100 100 100 08/05/18 20:00 08/05/18 21:00 08/05/18 21:09 Temperature 98.3 F Pulse Rate 83 75 76 Respiratory Rate 22 22 22 Blood Pressure 122/68 109/57 L Pulse Oximetry 95 97 94 L 08/05/18 22:00 08/05/18 23:00 08/05/18 23:15 Temperature Pulse Rate 83 73 71 Respiratory Rate 22 20 Blood Pressure 99/58 L 100/58 L 94/52 L Pulse Oximetry 97 93 L 96 08/05/18 23:30 08/05/18 23:45 08/06/18 00:00 Temperature 98.5 F Pulse Rate 68 70 70 Respiratory Rate 18 Blood Pressure 97/52 L 92/50 L 95/52 L Pulse Oximetry 95 92 L 94 L 08/06/18 00:15 08/06/18 00:30 08/06/18 00:45 Temperature Pulse Rate 69 71 69 Respiratory Rate Blood Pressure 96/51 L 103/57 L 94/55 L Pulse Oximetry 95 95 94 L 08/06/18 01:00 08/06/18 01:15 08/06/18 01:30 Temperature 98.3 F Pulse Rate 72 72 72 Respiratory Rate 18 Blood Pressure 105/58 L 108/60 110/61 Pulse Oximetry 93 L 97 93 L 08/06/18 01:45 08/06/18 02:00 08/06/18 02:15 Temperature Pulse Rate 72 70 71 Respiratory Rate 18 Blood Pressure 109/62 109/60 105/56 L Pulse Oximetry 98 95 99 08/06/18 02:30 08/06/18 02:45 08/06/18 03:00 Temperature Pulse Rate 71 71 71 Respiratory Rate Blood Pressure 107/59 L 113/56 L 115/59 L Pulse Oximetry 97 98 96 08/06/18 03:15 08/06/18 03:30 08/06/18 03:45 Temperature Pulse Rate 70 70 70 Respiratory Rate Blood Pressure 114/59 L 101/53 L 103/57 L Pulse Oximetry 97 90 L 96 08/06/18 04:00 08/06/18 04:03 08/06/18 04:15 Temperature Pulse Rate 71 70 69 Respiratory Rate 20 Blood Pressure 105/59 L 97/51 L Pulse Oximetry 95 89 L 08/06/18 04:30 08/06/18 04:45 08/06/18 05:00 Temperature Pulse Rate 71 71 70 Respiratory Rate Blood Pressure 107/59 L 119/56 L 112/58 L Pulse Oximetry 92 L 86 L 91 L 08/06/18 05:15 08/06/18 06:00 08/06/18 06:47 Temperature 98.9 F Pulse Rate 71 71 Respiratory Rate 18 14 Blood Pressure 102/54 L 107/59 L Pulse Oximetry 84 L 92 L 08/06/18 07:00 08/06/18 09:36 Temperature 98.9 F Pulse Rate 71 73 Respiratory Rate 20 20 Blood Pressure 114/79 Pulse Oximetry 92 L Intake & Output 08/05/18 08/06/18 08/06/18 18:59 06:59 18:59 Intake Total 1651.5 / 1651.5 450 / 450 100 / 100 Output Total 150 / 150 200 / 200 Balance 1501.5 / 1501.5 250 / 250 100 / 100 Weight 98 kg Intake: IV 1411.5 / 1411.5 100 / 100 100 / 100 DOBUTamine 250 MG/250 ML Premix 112 / 112 250 mg In 250 ml @ 2.5 MCG/KG/ MIN 12.927 mls/hr IV.CONT . [id number] [facility] Rx#:[id number] DOPamine 800 MG/500 ML Premix 0 / 0 800 mg In 500 ml @ 3 MCG/KG/MIN 9.696 mls/hr IV.CONT TITRATE PRN Rx#:[id number] Versed Inj 50 mg In 50 ml @ 2 40 / 40 MG/HR 2 mls/hr IV.CONT TITRATE PRN Rx#:[id number] Levophed Inj 16 MG In D5W Inj 0 / 0 234 ML @ 44 MCG/MIN 41.25 mls/ hr IV.CONT TITRATE PRN Rx#: [id number] Neosynephrine Inj 40 MG In D5W 112 / 112 Inj 496 ML @ 100 MCG/MIN 75 mls /hr IV.CONT TITRATE PRN Rx#: [id number] Diprivan 1000 mg/100 ml Inj 1, 80 / 80 000 mg In 100 ml @ 5 MCG/KG/MIN 2.585 mls/hr IV.CONT TITRATE PRN Rx#:[id number] Pitressin Inj 40 UNIT In D5W 0 / 0 Inj 98 ML @ 0.04 UNITS/MIN 6 mls/hr IV.CONT CONT [facility] Rx#: [id number] Azactam Inj 2 GM In NS Inj 100 200 / 200 100 / 100 ML @ 200 mls/hr IV.SIG Q8H [facility] Rx#:[id number] Vancomycin Inj 1,750 MG In NS 517.5 / 517.5 Inj 500 ML @ 250 mls/hr IV.SIG ONCE ONE Rx#:[id number] fentaNYL 10 mcg/mL Premix Drip 150 / 150 2,500 mcg In 250 ml @ 50 MCG/HR 5 mls/hr IV.SIG TITRATE PRN Rx #:[id number] Flagyl 500 MG Inj 100 ML @ 100 200 / 200 100 / 100 mls/hr IV.SIG Q8H [facility] Rx#: [id number] Oral 240 / 240 350 / 350 Output: Urine Amount (Catheter) 150 / 150 200 / 200 Indwelling Urethral Catheter 150 / 150 200 / 200 Narrative: GENERAL: Alert, NAD SKIN: Warm and dry. HEAD: Atraumatic. Normocephalic. NECK: Trachea midline. No JVD. CARDIOVASCULAR: regular, Murmur present. Pacemaker RESPIRATORY: Tachypneic but no accessory muscle use. Clear to auscultation bilaterally. GASTROINTESTINAL: Abdomen soft, non-tender, large. Positive Bowel sounds. MUSCULOSKELETAL: Extremities without clubbing, cyanosis. No edema - Urinary Catheter Management Indwelling Urethral Catheter Cath placed during this visit: no Reason for continuing: Acute urinary retention <Cher Freeman - Last Filed: 08/06/18 11:13> Vital signs: Vital Signs 08/08/18 11:00 08/08/18 12:00 08/08/18 13:00 Temperature 99 F Pulse Rate 72 67 71 Respiratory Rate 22 Blood Pressure 132/76 132/68 133/71 Pulse Oximetry 98 98 98 08/08/18 14:00 08/08/18 15:00 08/08/18 15:56 Temperature Pulse Rate 61 65 66 Respiratory Rate 17 Blood Pressure 126/71 135/73 Pulse Oximetry 97 98 08/08/18 16:00 08/08/18 17:00 08/08/18 17:01 Temperature 98.3 F Pulse Rate 64 79 72 Respiratory Rate 20 Blood Pressure 153/90 H 135/71 Pulse Oximetry 100 99 100 08/08/18 18:00 08/08/18 19:00 08/08/18 19:27 Temperature Pulse Rate 70 71 Respiratory Rate 16 Blood Pressure 149/77 H 135/75 Pulse Oximetry 95 97 08/08/18 20:00 08/08/18 21:00 08/08/18 21:05 Temperature 98.6 F Pulse Rate 73 74 Respiratory Rate Blood Pressure 124/83 138/79 Pulse Oximetry 96 98 96 08/08/18 22:00 08/08/18 23:00 08/09/18 00:00 Temperature 99.7 F H Pulse Rate 68 79 66 Respiratory Rate Blood Pressure 134/81 142/74 H 156/83 H Pulse Oximetry 95 98 97 08/09/18 01:00 08/09/18 02:00 08/09/18 03:00 Temperature Pulse Rate 66 64 64 Respiratory Rate Blood Pressure 140/83 125/78 113/72 Pulse Oximetry 97 98 98 08/09/18 04:00 08/09/18 05:00 08/09/18 05:46 Temperature 99.3 F Pulse Rate 65 68 Respiratory Rate 16 Blood Pressure 153/82 H 125/66 Pulse Oximetry 93 L 98 08/09/18 06:00 08/09/18 07:52 Temperature Pulse Rate 79 74 Respiratory Rate 19 Blood Pressure 134/86 Pulse Oximetry 97 94 L Intake & Output 08/08/18 08/09/18 08/09/18 18:59 06:59 18:59 Intake Total 460 / 460 1441 / 1441 100 / 100 Output Total 4200 / 4200 450 / 450 Balance -3740 / -3740 991 / 991 100 / 100 Intake: IV 100 / 100 721 / 721 100 / 100 Azactam Inj 2 GM In NS Inj 100 100 / 100 200 / 200 ML @ 200 mls/hr IV.SIG Q8H [facility] Rx#:[id number] KCl 20 mEq Premix Inj 20 meq In 100 / 100 100 ml @ 50 mls/hr IV.SIG Q2H [facility] Rx#:[id number] Vancomycin Inj 2,100 MG In NS 521 / 521 Inj 500 ML @ 250 mls/hr IV.SIG ONCE ONE Rx#:[id number] Oral 360 / 360 720 / 720 Other 0 / 0 Output: Urine 4200 / 4200 450 / 450 Hemodialysis Amount 0 / 0 0 / 0 Other: Other Intake Source Saline Solution Date of Last Bowel Movement 08/08/18 08/08/18 # Bowel Movements 5 5 - Urinary Catheter Management Indwelling Urethral Catheter Cath placed during this visit: no <Slim Arrieta - Last Filed: 08/09/18 10:28> Assessment and Plan - Assessment (1) Acute kidney injury superimposed on CKD Code(s): N17.9 - ; N18.9 - Status: Acute Plan: Acute kidney injury with history of chronic kidney disease Started on CRRT as patient on multiple pressors, anuric, and severe metabolic acidosis. Right femoral vas cath Creatinine at 2.55 ->3.43 ->2.97 ->4.39 Oliguric with urinary output of 350 ml/24 hours Plan Avoid nephrotoxins and dye studies Continue lasix BID Hypocalcemia at 7.2 will adjust calcium with dialysis and IV replacement Significant proteinuria will order 24 hour urine of protein Will follow urinary output, BMP, and watch for renal recovery Hemodialysis today will remove fluid as tolerated. Labs in AM (2) SLE (systemic lupus erythematosus) Code(s): M32.9 - Status: Acute Plan: Check for Lupus activity. DNA DS pending. <Cher Freeman - Last Filed: 08/06/18 11:13> - Assessment (1) Acute kidney injury superimposed on CKD Code(s): N17.9 - Acute kidney failure, unspecified; N18.9 - Chronic kidney disease, unspecified Status: Acute Plan: Patient seen and examined, agree with above. Creatinine is still elevated. HD today, remove fluid as tolerated. Continue Lasix, calcium replaced. (2) SLE (systemic lupus erythematosus) Code(s): M32.9 - Systemic lupus erythematosus, unspecified Status: Acute (3) Hypertension Code(s): I10 - Essential (primary) hypertension Status: Acute <Slim Arrieta - Last Filed: 08/09/18 10:28>
[2018-08-06] MEDS: Heparin 10,000 UNITS/10 ML Vial (for IV use) OTHER PRN (14:53)
--- NOTE | 2018-08-06 15:01 | P.PNID ---
Subjective Remarks: pt is doing much better she is off the vent she is off pressors afebrile On HD WBC 35 K Antibiotics: azactam flagyl vancomycin Allergies/Adverse Reactions: Allergies cephalexin Allergy (Severe, Verified 07/13/18 17:57) RASH,SWELLING Fish Containing Products Allergy (Severe, Verified 07/13/18 17:57) SWELLING IN THROAT, SOB ketorolac Allergy (Severe, Verified 07/13/18 17:57) RASH penicillin G Allergy (Severe, Verified 07/13/18 17:57) RASH,SWELLING prochlorperazine Allergy (Mild, Verified 07/13/18 17:57) DYSTONIC REACTION promethazine Allergy (Mild, Verified 07/13/18 17:57) DYSTONIC REACTION Objective Vital Signs 08/05/18 14:45 08/05/18 15:00 08/05/18 15:15 Temperature Pulse Rate 77 75 74 Respiratory Rate Blood Pressure 111/55 L 108/59 L 97/52 L Pulse Oximetry 93 L 90 L 84 L 08/05/18 15:30 08/05/18 15:45 08/05/18 16:00 Temperature Pulse Rate 76 77 78 Respiratory Rate Blood Pressure 98/54 L 98/61 L 113/68 Pulse Oximetry 83 L 85 L 100 08/05/18 16:15 08/05/18 17:00 08/05/18 18:00 Temperature Pulse Rate 75 75 73 Respiratory Rate Blood Pressure 108/57 L 112/60 115/63 Pulse Oximetry 100 100 100 08/05/18 19:00 08/05/18 20:00 08/05/18 21:00 Temperature 98.3 F Pulse Rate 79 83 75 Respiratory Rate 22 22 Blood Pressure 118/66 122/68 109/57 L Pulse Oximetry 100 95 97 08/05/18 21:09 08/05/18 22:00 08/05/18 23:00 Temperature Pulse Rate 76 83 73 Respiratory Rate 22 22 20 Blood Pressure 99/58 L 100/58 L Pulse Oximetry 94 L 97 93 L 08/05/18 23:15 08/05/18 23:30 08/05/18 23:45 Temperature Pulse Rate 71 68 70 Respiratory Rate Blood Pressure 94/52 L 97/52 L 92/50 L Pulse Oximetry 96 95 92 L 08/06/18 00:00 08/06/18 00:15 08/06/18 00:30 Temperature 98.5 F Pulse Rate 70 69 71 Respiratory Rate 18 Blood Pressure 95/52 L 96/51 L 103/57 L Pulse Oximetry 94 L 95 95 08/06/18 00:45 08/06/18 01:00 08/06/18 01:15 Temperature 98.3 F Pulse Rate 69 72 72 Respiratory Rate 18 Blood Pressure 94/55 L 105/58 L 108/60 Pulse Oximetry 94 L 93 L 97 08/06/18 01:30 08/06/18 01:45 08/06/18 02:00 Temperature Pulse Rate 72 72 70 Respiratory Rate 18 Blood Pressure 110/61 109/62 109/60 Pulse Oximetry 93 L 98 95 08/06/18 02:15 08/06/18 02:30 08/06/18 02:45 Temperature Pulse Rate 71 71 71 Respiratory Rate Blood Pressure 105/56 L 107/59 L 113/56 L Pulse Oximetry 99 97 98 08/06/18 03:00 08/06/18 03:15 08/06/18 03:30 Temperature Pulse Rate 71 70 70 Respiratory Rate Blood Pressure 115/59 L 114/59 L 101/53 L Pulse Oximetry 96 97 90 L 08/06/18 03:45 08/06/18 04:00 08/06/18 04:03 Temperature Pulse Rate 70 71 70 Respiratory Rate 20 Blood Pressure 103/57 L 105/59 L Pulse Oximetry 96 95 08/06/18 04:15 08/06/18 04:30 08/06/18 04:45 Temperature Pulse Rate 69 71 71 Respiratory Rate Blood Pressure 97/51 L 107/59 L 119/56 L Pulse Oximetry 89 L 92 L 86 L 08/06/18 05:00 08/06/18 05:15 08/06/18 06:00 Temperature 98.9 F Pulse Rate 70 71 71 Respiratory Rate 18 Blood Pressure 112/58 L 102/54 L 107/59 L Pulse Oximetry 91 L 84 L 92 L 08/06/18 06:47 08/06/18 07:00 08/06/18 09:36 Temperature 98.9 F Pulse Rate 71 73 Respiratory Rate 14 20 20 Blood Pressure 114/79 Pulse Oximetry 92 L Intake & Output 08/05/18 08/06/18 08/06/18 18:59 06:59 18:59 Intake Total 1651.5 / 1651.5 450 / 450 200 / 200 Output Total 150 / 150 200 / 200 Balance 1501.5 / 1501.5 250 / 250 200 / 200 Weight 98 kg Intake: IV 1411.5 / 1411.5 100 / 100 200 / 200 DOBUTamine 250 MG/250 ML Premix 112 / 112 250 mg In 250 ml @ 2.5 MCG/KG/ MIN 12.927 mls/hr IV.CONT . [id number] [facility] Rx#:[id number] DOPamine 800 MG/500 ML Premix 0 / 0 800 mg In 500 ml @ 3 MCG/KG/MIN 9.696 mls/hr IV.CONT TITRATE PRN Rx#:[id number] Versed Inj 50 mg In 50 ml @ 2 40 / 40 MG/HR 2 mls/hr IV.CONT TITRATE PRN Rx#:[id number] Levophed Inj 16 MG In D5W Inj 0 / 0 234 ML @ 44 MCG/MIN 41.25 mls/ hr IV.CONT TITRATE PRN Rx#: [id number] Neosynephrine Inj 40 MG In D5W 112 / 112 Inj 496 ML @ 100 MCG/MIN 75 mls /hr IV.CONT TITRATE PRN Rx#: [id number] Diprivan 1000 mg/100 ml Inj 1, 80 / 80 000 mg In 100 ml @ 5 MCG/KG/MIN 2.585 mls/hr IV.CONT TITRATE PRN Rx#:[id number] Pitressin Inj 40 UNIT In D5W 0 / 0 Inj 98 ML @ 0.04 UNITS/MIN 6 mls/hr IV.CONT CONT [facility] Rx#: [id number] Azactam Inj 2 GM In NS Inj 100 200 / 200 100 / 100 100 / 100 ML @ 200 mls/hr IV.SIG Q8H [facility] Rx#:[id number] Vancomycin Inj 1,750 MG In NS 517.5 / 517.5 Inj 500 ML @ 250 mls/hr IV.SIG ONCE ONE Rx#:[id number] fentaNYL 10 mcg/mL Premix Drip 150 / 150 2,500 mcg In 250 ml @ 50 MCG/HR 5 mls/hr IV.SIG TITRATE PRN Rx #:[id number] Flagyl 500 MG Inj 100 ML @ 100 200 / 200 100 / 100 mls/hr IV.SIG Q8H [facility] Rx#: [id number] Oral 240 / 240 350 / 350 Output: Urine Amount (Catheter) 150 / 150 200 / 200 Indwelling Urethral Catheter 150 / 150 200 / 200 08/05/18 09:52 Blood - Peripheral Aerobic Blood Culture - Preliminary No growth in 1 day 08/05/18 09:52 Blood - Peripheral Anaerobic Blood Culture - Preliminary No growth in 1 day 08/05/18 10:00 Blood - Peripheral Aerobic Blood Culture - Preliminary No growth in 1 day 08/05/18 10:00 Blood - Peripheral Anaerobic Blood Culture - Preliminary No growth in 1 day 08/03/18 00:35 Blood - Peripheral Aerobic Blood Culture - Preliminary No growth in 3 days 08/03/18 00:35 Blood - Peripheral Anaerobic Blood Culture - Final QNS - See aerobic report. 08/03/18 08:20 Blood - Peripheral Aerobic Blood Culture - Preliminary No growth in 3 days 08/03/18 08:20 Blood - Peripheral Anaerobic Blood Culture - Final QNS - See aerobic report. 08/04/18 15:36 Clean Catch Urine Urine Culture - Final No growth in 48 hours 08/03/18 05:09 Catheterized Urine Urine Culture - Final 50-100,000 cfu/mL mixed gram positive narayan (probable contaminants) Lab - Hematology Results 08/04/18 08/05/18 08/06/18 14:40 03:36 05:22 WBC 39.3 H 33.6 H 35.6 H RBC 3.00 L 2.59 L 2.40 L Hgb 8.4 L 7.3 L 6.8 L* Hct 25.9 L 22.7 L 21.3 L MCV 86.5 87.5 88.8 MCH 28.2 28.2 28.3 MCHC 32.6 32.2 31.8 L RDW 14.7 14.9 15.1 Plt Count 52 L D 54 L 82 L D MPV 8.1 8.6 9.7 Lab - Chemistry Results 08/04/18 08/04/18 08/04/18 14:40 14:55 17:19 Sodium 141 Potassium 4.9 D Chloride 99 Carbon Dioxide 38.1 H D Anion Gap 4 L BUN 25 H Creatinine 2.64 H Estimated GFR 20 L POC Glucose 107 Random Glucose 114 H D Lactic Acid 1.6 Calcium 6.5 L* D Prot Corrected Calcium 7.4 L* Magnesium Total Bilirubin 0.7 AST 183 H ALT 121 H Alkaline Phosphatase 59 Total Protein 5.3 L Albumin 2.9 L 08/05/18 08/05/18 08/05/18 00:04 03:36 11:17 Sodium 141 Potassium 4.0 D Chloride 101 Carbon Dioxide 30.4 Anion Gap 10 BUN 28 H Creatinine 2.76 H Estimated GFR 19 L POC Glucose 120 H 138 H Random Glucose 127 H Lactic Acid Calcium 6.6 L* Prot Corrected Calcium 7.5 L Magnesium 1.5 Total Bilirubin 0.5 AST 121 H ALT 104 H Alkaline Phosphatase 58 Total Protein 5.3 L Albumin 2.7 L 08/05/18 08/06/18 08/06/18 17:22 01:08 05:22 Sodium 138 Potassium 3.8 Chloride 99 Carbon Dioxide 23.9 Anion Gap 15 BUN 50 H Creatinine 4.39 H Estimated GFR 11 L POC Glucose 135 H 152 H Random Glucose 142 H Lactic Acid Calcium 6.6 L* Prot Corrected Calcium 7.2 L* Magnesium 2.0 Total Bilirubin 0.3 AST 100 H ALT 104 H Alkaline Phosphatase 78 Total Protein 5.9 L D Albumin 3.0 L 08/06/18 08/06/18 06:52 11:58 Sodium Potassium Chloride Carbon Dioxide Anion Gap BUN Creatinine Estimated GFR POC Glucose 142 H 166 H Random Glucose Lactic Acid Calcium Prot Corrected Calcium Magnesium Total Bilirubin AST ALT Alkaline Phosphatase Total Protein Albumin Imaging: ITS Impressions Chest X-Ray 08/06/18 06:00 CONCLUSION: 1. Patient has been extubated with right IJ central line removed. 2. Otherwise, no significant interval change with continued bilateral lower lung zone airspace disease and likely small pleural effusions. Physical Exam: GENERAL: NAD SKIN: Warm and dry. NO rash HEAD: Atraumatic. Normocephalic. EYES: Pupils equal and round. No scleral icterus. No injection or drainage. ENT: No nasal bleeding or discharge. Mucous membranes pink and moist. NECK: Trachea midline. No JVD. CARDIOVASCULAR: Regular rate and rhythm. + Murmur L sternal upper border L chest incision dry, clean RESPIRATORY: No accessory muscle use. Clear to auscultation. Breath sounds equal bilaterally. GASTROINTESTINAL: Abdomen soft, non-tender, nondistended. Hepatic and splenic margins not palpable. MUSCULOSKELETAL: Extremities without clubbing, cyanosis, or edema. No obvious deformities. NEUROLOGICAL: Awake and alert. No obvious cranial nerve deficits. Motor grossly within normal limits. Five out of 5 muscle strength in the arms and legs. Normal speech. 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
[2018-08-07] MEDS: Aztreonam Inj 2 GM in Sodium Chloride 0.9% Inj 100 ML IV.SIG SCH ×4 (01:55→23:47)
[2018-08-07] MEDS: Insulin NovoLOG Aspart Correctional Sugar Inj SQ SCH ×5 (01:55→23:47)
[2018-08-07] MEDS: Morphine Sulfate Inj 2 MG/ML Vial IV.PUSH PRN ×4 (01:58→20:43)
[2018-08-07] MEDS: Chlorhexidine Gluconate 2% 1 Pack (2 Cloths) TOPICAL SCH (05:32)
[2018-08-07] MEDS: Hydrocortisone Sod Succinate 100 MG Vial IV.PUSH SCH (06:12)
[2018-08-07 06:52] LABS: Hemoglobin 7.9 gm/dL (11.6-15.3); Mean Corpuscular HGB Conc 33.1 % (32.0-36.0); Mean Corpuscular Hemoglobin 28.9 pg (27.0-34.0); Mean Corpuscular Volume 87.3 fL (80.0-100.0); Mean Platelet Volume 8.3 fL (7.0-11.0); Platelet Count 96 th/mm3 (150-450); Red Blood Count 2.75 mil/mm3 (4.00-5.30); White Blood Count 26.9 th/mm3 (4.0-11.0)
[2018-08-07 07:35] LABS: Alanine Aminotransferase 92 U/L (10-53); Albumin 3.2 g/dL (3.4-5.0); Alkaline Phosphatase 93 U/L (45-117); Anion Gap 9 meq/L (5-15); Aspartate Aminotransferase 61 U/L (15-37); Blood Urea Nitrogen 32 mg/dL (7-18); Calcium 8.1 mg/dL (8.5-10.1); Carbon Dioxide 31.6 meq/L (21.0-32.0); Chloride 99 meq/L (98-107); Glomerular Filtration Rate 19 mL/min (>89); Glucose,Random 124 mg/dL (74-106); Sodium 140 meq/L (136-145); Total Protein 6.4 g/dL (6.4-8.2)
--- NOTE | 2018-08-07 07:49 | P.PNCC ---
Subjective Subjective Remarks/Hospital Course: 42-year-old female with past medical history of systemic lupus erythematosus, Crohn's disease, hypothyroidism, endometriosis, gastroparesis, chronic kidney disease stage III, interstitial cystitis, Brugada syndrome with ICD replaced 06/27/[address] Cervantes. 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 She states she was taking a shower this evening and felt weak and presyncopal. She was transported by [facility] with heart rate 30s to 40s. Upon arrival she had ventricular paced rhythm at a rate of 40. Her blood pressure was 78/35. Transcutaneous pacer was placed with backup rate of 60. She was started on dopamine which has been titrated up to 16 mcg/kg/min with heart rate in the 70s-80s and blood pressure 93/51. Her pacemaker was interrogated and was noted to be intermittently capturing. I do not appreciate damage to lead or definite migration on chest x-ray though image is rotated c/ w prior. Dr. Nowak discussed with Dr. English who recommended Dopamine with backup transcutaneous pacing and consultation with Dr. Cervantes in the morning. Patient states that she began feeling weak about a week and a half ago when her Norvasc was increased. It was initially increased to 10 mg p.o. daily. Was recently admitted 07/24-07/25 and at that time was told to take Norvasc 5 mill grams p.o. twice daily which she states she has been taking as prescribed. She denies chest pain or shortness of breath. She became nauseated and vomited small amount of emesis, nonbloody nonbilious after arrival to the ED. She states she has some tenderness of the chest wall, noted some drainage 2 days ago from anterior incision but I do not see any now. She states yesterday she had a temp 102.7. She is afebrile in the ED without leukocytosis. She does have history of pocket infection in december 2017 and 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 and then replaced in [facility] (original device placed 10/03/17). She had additional chest wall infection 02/2018 with MRSA resulting in device removal and wound vac placement. ICD was replaced 06/27/[address] Cervantes. She states she has a prior history of menorrhagia and has had vaginal bleeding for about a month. It has been heavier over the last couple of days changing 1 pad per hour. Her hemoglobin is 9.6, previously 9.7 on 07/25. SUBJ 08/03: Patient continues to be external pacer dependent. Currently on 20mcg/kg/min of dopamine. When the pacer rate is decreased patient's heart rate decreases to mid 20s and she is symptomatic. I have emergently placed a right IJ central line to administer vasoactive medication. Add Isuprel. Discussed personally with Dr. Helen PEREZ. I reviewed the previous report from [facility] in the ED the rate was reduced to VVI 30 as the patient complained about pain with pacing. We have contacted [facility] again to increase the backup rate to 60 At about 1.30 pm I was called emergently to the bedside as the patient sustained tonic-clonic seizures for approximately 30 sec, Ativan 2 mg push was given with resolution of seizure. Prior to this patient had been placed on Isuprel at 8 mcg/min, dopamine running at 20 mcg/kg/min, and Levophed at 20 mcg/ kg/min. Patient appear to be postictal and unresponsive her heart rate was approximately 30 bpm manually. Because of hemodynamic instability and lack of airway protection and anticipated pacemaker placement I proceeded with endotracheal intubation and placed on mechanical ventilation. Post intubation I also placed an arterial line which showed actual heart rate to be in the 30s and patient remained in severe shock on multiple pressors with a map 50-55. I added epinephrine infusion at 5 mcg/min and rapidly titrated up to 10 mcg/min. Levophed was increased to 30 mcg/min. An ABG showed severe metabolic acidosis pH of 6.9 base excess was -20. 4 Amps of bicarb IVP given, and bicarb infusion started. Additional fluid resuscitation was carried out. Bedside echo shows heart beating only about 30 bpm but good contractility, EF> 60%. I discussed this again with Dr. Cervantes. Even though patient is hemodynamically unstable her only chance of survival is in emergent pacemaker placement as she is not capturing with 120 MA on transcutaneous pacer, and patient remained in shock and heart rate in 30s despite maximum dose of Isuprel and dopamine and epinephrine. I accompanied the patient to the Patient Registration Representative and continued resuscitation with intermittent epinephrine pushes 1 amp of atropine push. I stayed at the bedside of the patient until the temporary pacemaker was placed by Dr. Cervantes on the fluoroscopy and patient had good capture. I also updated the mother about the very critical nature of the patient's condition and high probability that patient may not survive this episode as she is extremely acidotic and in profound shock 08/04: Patient was in profound shock yesterday up to 5 vasopressor and inotropic agents. See notes from yesterday. Patient had emergency temporary pacemaker placed in the Patient Registration Representative under fluoroscopy followed by permanent pacemaker placement. At that time she remained on high-dose pressors, for correction of acidosis and anuria started on CVVH. Overnight has started to improve. Currently weaned off dopamine and Isuprel. Inherent sinus rhythm heart rate 65 bpm not paced at this time. Currently remains on epinephrine at 3 mcg/min, Levophed at 3 mcg/min, Caleb-Synephrine and Afrin at 50 mcg/min and vasopressin 0.04 international units. Map consistently above 80. Patient wakes up follows commands despite being sedated with Versed and fentanyl. lactate improved from 14.3 to 4. Remains anuric 08/05: Patient remains intubated sedated tolerating CPAP today. All pressors are off now remains on dobutamine at 2.5 mcg/min to maintain cardiac index more than 2. Urine output slightly improved 200 mL into 24 hours. Had CVVH transition to HD yesterday 3 L removed. CBC count improved from 39.3-33.6. 2D echo showed tricuspid vegetation. ID consulted 08/06: Patient was extubated yesterday tolerating well. Currently on simple mask oxygen saturation 92-93%. Hemoglobin is 6.8 will transfuse 1 unit PRBC with hemodialysis today. Creatinine has increased from 2.4-4.4 today. 350 mL urine output in 24 hours. Getting HD today per Dr. Arrieta. Increase in WBC count noted ID is following. 08/07: Patient lying comfortably in bed no acute distress. Breathing comfortably requiring 4 L nasal cannula to maintain sat above 90%. CMP is pending at this time. WBC count trending down 20 7K today. Blood cultures remain negative to date Objective Vital Signs / I&O: Vital Signs 08/06/18 08:00 08/06/18 09:00 08/06/18 09:36 Temperature 98.6 F 98.6 F Pulse Rate 71 72 73 Respiratory Rate 18 19 20 Blood Pressure 106/56 L 124/66 Pulse Oximetry 91 L 91 L 08/06/18 10:00 08/06/18 11:00 08/06/18 12:00 Temperature 98.9 F 98.7 F 99.1 F Pulse Rate 75 76 74 Respiratory Rate 20 20 19 Blood Pressure 113/55 L 117/62 117/62 Pulse Oximetry 92 L 87 L 91 L 08/06/18 13:00 08/06/18 14:00 08/06/18 15:00 Temperature 98.9 F 98.9 F 98.9 F Pulse Rate 71 75 71 Respiratory Rate 20 20 20 Blood Pressure 114/79 114/79 114/79 Pulse Oximetry 92 L 92 L 92 L 08/06/18 16:00 08/06/18 16:07 08/06/18 17:00 Temperature 98.1 F 98.4 F Pulse Rate 77 80 80 Respiratory Rate 18 19 19 Blood Pressure 143/74 H 151/78 H Pulse Oximetry 98 94 L 08/06/18 18:00 08/06/18 19:00 08/06/18 19:15 Temperature 98.7 F 98.2 F Pulse Rate 76 77 75 Respiratory Rate 20 20 Blood Pressure 145/69 H 130/57 L 116/60 Pulse Oximetry 93 L 95 95 08/06/18 19:30 08/06/18 19:45 08/06/18 20:00 Temperature 98.8 F Pulse Rate 75 73 73 Respiratory Rate Blood Pressure 117/57 L 126/56 L 129/65 Pulse Oximetry 92 L 91 L 91 L 08/06/18 20:15 08/06/18 20:30 08/06/18 20:45 Temperature Pulse Rate 72 72 72 Respiratory Rate Blood Pressure 133/71 128/66 124/70 Pulse Oximetry 94 L 94 L 91 L 08/06/18 21:00 08/06/18 21:15 08/06/18 21:27 Temperature Pulse Rate 71 71 Respiratory Rate Blood Pressure 123/60 126/62 Pulse Oximetry 93 L 93 L 92 L 08/06/18 21:30 08/06/18 21:45 08/06/18 22:00 Temperature Pulse Rate 74 77 78 Respiratory Rate Blood Pressure 124/67 130/68 Pulse Oximetry 94 L 93 L 93 L 08/06/18 22:15 08/06/18 22:30 08/06/18 22:45 Temperature Pulse Rate 76 75 73 Respiratory Rate Blood Pressure 120/61 120/61 121/61 Pulse Oximetry 93 L 93 L 94 L 08/06/18 23:00 08/06/18 23:15 08/06/18 23:30 Temperature Pulse Rate 73 72 72 Respiratory Rate Blood Pressure 128/62 133/63 132/62 Pulse Oximetry 93 L 93 L 93 L 08/06/18 23:45 08/07/18 00:00 08/07/18 00:15 Temperature 99.1 F Pulse Rate 72 75 76 Respiratory Rate Blood Pressure 127/63 132/60 133/66 Pulse Oximetry 92 L 91 L 90 L 08/07/18 00:30 08/07/18 00:45 08/07/18 01:00 Temperature Pulse Rate 75 75 75 Respiratory Rate Blood Pressure 135/67 137/68 135/71 Pulse Oximetry 92 L 93 L 92 L 08/07/18 01:15 08/07/18 01:30 08/07/18 01:45 Temperature Pulse Rate 80 75 75 Respiratory Rate Blood Pressure 136/72 140/71 147/77 H Pulse Oximetry 92 L 92 L 92 L 08/07/18 02:00 08/07/18 02:15 08/07/18 02:30 Temperature Pulse Rate 75 76 74 Respiratory Rate Blood Pressure 144/71 H 141/74 H 143/74 H Pulse Oximetry 93 L 93 L 93 L 08/07/18 02:45 08/07/18 03:00 08/07/18 03:15 Temperature Pulse Rate 74 74 73 Respiratory Rate Blood Pressure 136/67 141/71 H 136/70 Pulse Oximetry 93 L 92 L 93 L 08/07/18 03:30 08/07/18 03:45 08/07/18 04:00 Temperature Pulse Rate 73 74 73 Respiratory Rate Blood Pressure 137/70 139/71 140/74 Pulse Oximetry 93 L 93 L 93 L 08/07/18 04:15 08/07/18 04:30 08/07/18 04:45 Temperature Pulse Rate 74 77 74 Respiratory Rate Blood Pressure 142/73 H 144/71 H 139/69 Pulse Oximetry 93 L 92 L 93 L 08/07/18 05:00 08/07/18 05:06 08/07/18 05:15 Temperature Pulse Rate 72 72 72 Respiratory Rate 18 Blood Pressure 130/65 133/68 Pulse Oximetry 91 L 96 08/07/18 05:30 08/07/18 05:31 08/07/18 05:45 Temperature Pulse Rate 75 74 Respiratory Rate 16 Blood Pressure 126/65 129/63 Pulse Oximetry 91 L 92 L 08/07/18 06:00 Temperature Pulse Rate 73 Respiratory Rate Blood Pressure 131/63 Pulse Oximetry 91 L Intake & Output 08/06/18 08/07/18 08/07/18 18:59 06:59 18:59 Intake Total 1700 / 1700 300 / 300 Output Total 4600 / 4600 3800 / 3800 Balance -2900 / -2900 -3500 / -3500 Weight 91.4 kg Intake: IV 500 / 500 Azactam Inj 2 GM In NS Inj 100 200 / 200 ML @ 200 mls/hr IV.SIG Q8H SHUKRI Rx#:[id number] Flagyl 500 MG Inj 100 ML @ 100 300 / 300 mls/hr IV.SIG Q8H SHUKRI Rx#: [id number] Oral 1200 / 1200 300 / 300 Output: Hemodialysis Amount 3800 / 3800 Urine Amount (Catheter) 800 / 800 3800 / 3800 Indwelling Urethral Catheter 800 / 800 3800 / 3800 Other: # Bowel Movements 0 Result Diagrams: 08/07/18 06:23 08/06/18 05:22 Objective Remarks: GENERAL: Chronically ill-appearing overweight female lying in bed on 4L NC SKIN: Warm and dry. HEAD: Atraumatic. Normocephalic. EYES: Pupils equal and round. No scleral icterus. No injection or drainage. ENT: No nasal bleeding or discharge. NECK: Trachea midline. No JVD. No meningismus. CARDIOVASCULAR: Heart rate 80 bpm, paced, 1/6 systolic murmur lsb. Baseline rhythm chronic A. fib. Left upper chest pacemaker dressing intact. CHEST: There is an anterior incision from pacemaker placement that is healed. No purulence. There is no erythema or warmth. There is a scar on lateral chest wall that is healed. New pacemaker pocket without evidence of hematoma RESPIRATORY: On NC. Air entry equal bilaterally few coarse rhonchi no wheezes no crackles GASTROINTESTINAL: Abdomen soft, non-tender, nondistended. Bowel sounds present peer MUSCULOSKELETAL: 1+ bilateral lower extremity edema. NEUROLOGICAL: Awake and alert, oriented x3 conversant. No obvious cranial nerve deficits. Motor grossly within normal limits. Follows commands x4 Assessment and Plan - Problem List (1) Hypotension Code(s): I95.9 - Hypotension, unspecified Status: Acute (2) CKD (chronic kidney disease) stage 3, GFR 30-59 ml/min Code(s): N18.3 - Chronic kidney disease, stage 3 (moderate) Status: Chronic (3) Symptomatic bradycardia Code(s): R00.1 - Bradycardia, unspecified Status: Acute (4) Acute hypokalemia Code(s): E87.6 - Hypokalemia Status: Acute (5) Chronic pain Code(s): G89.29 - Other chronic pain Status: Chronic (6) Medical non-compliance Code(s): Z91.19 - Patient's noncompliance with other medical treatment and regimen Status: Acute - Assessment and Plan Plan: NEURO: Chronic pain Possible seizures Continue morphine 15 mg p.o. every 8 hours and as needed Valium 10 mg p.o. every 8 hours EEG only if recurrent seizures, Seizure-like activity noticed on 08/03/2018 most likely secondary to decreased perfusion RESP: Acute hypoxemic respiratory failure-improving Extubated 08/05/2018, tolerating well, DuoNeb q6 and PRN Broad spectrum ABX as below Intubated 08/03/2018 for probable seizure, altered mental status and severe cardiogenic shock PH at the time of intubation was 6.9, lactic acid was 15 Acidosis has resolved continue to wean FiO2 as tolerated Continue EzPAP, IS CV: Severe cardiogenic shock-resolved Symptomatic bradycardia with hypotension-resolved AICD malfunction/probable dislodged pacemaker lead, status post lead extraction and placement of new leads Severe lactic acidosis-resolved 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 2D echo shows tricuspid valve endocarditis, ID following-antibiotics as below CVVH started 08/03 due to severe acidosis, now transition to HD Prior ICD pocket infection in December 2017 and February 2018. Recently replaced by Dr. Cervantes. Per device rep she did not follow-up for scheduled outpatient interrogation following device placement. On admission, interrogation shows pacemaker intermittently capturing per [employer] rep. Holding spironolactone 25 mg p.o. daily in view of renal failure Status post extensive fluid resuscitation, now HD with fluid removal Essential hypertension. Holding Norvasc, restart when appropriate GI: Crohn's disease Renal diet. 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 Hasn't followed up with gynecology in over a year. Endometriosis Beta hCG is negative. Hemoglobin is stable, can follow-up as an outpatient with gynecology. FEN/RENAL: Acute on chronic kidney disease with anuria Chronic kidney disease stage III Started on CVVH 08/03/18 due to anuria and severe metabolic acidosis CVVH changed to hemodialysis 08/04/18 as the blood pressure improved. Urine output slowly improving Nephrology Dr. Arrieta. Currently patient has a right femoral Vas-Cath. Will discuss upper body dialysis catheter placement by IR probably after HD tomorrow , and when white count is further improved Patient states she has not had renal biopsy. She has been followed by nephrology at [facility]. Hypokalemia Potassium replacement ID: Tricuspid valve endocarditis Septic and cardiogenic shock-resolved History of ICD pocket infection most recently with MRSA February 2018. She has undergone device removal on 2 prior occasions. Most recently was removed in February 2018 with wound VAC placement. Device replaced 06/27/18. She reported fever 102.7, however she is afebrile here. Continue renally dosed vancomycin, aztreonam, Flagyl 2D echo showed tricuspid valve endocarditis 1.7 x 0.5, however blood cultures 2 sets apparently remains negative Continue medical management. Leukocytosis improving RHEUM: Systemic lupus erythematosus On chronic steroids On chronic prednisone 30 mg p.o. daily for >2 years. In view of shock will place on hydrocortisone 100 mill grams IV every 8 hours. Hydrocortisone was reduced to 50 mg every 8 hours yesterday, restart prednisone 30 mg today and DC hydrocortisone Scheduled to follow-up with [facility] rheumatology end of August. HEME: Chronic anemia Thrombocytopenia most likely secondary to DIC/sepsis Transfuse blood and blood products as needed Transfuse 1 unit PRBC today with hemodialysis 08/06/2018 ENDO: Hypothyroidism Continue Synthroid 112 mcg p.o. daily. Normal TSH. PROPH: SCDs for DVT prophylaxis. Hold pharmacologic DVT prophylaxis at this time due to recent invasive procedure, thrombocytopenia If consistently stays above 90, place on heparin subcu Protonix 40 mg daily for stress ulcer prophylaxis. ACCESS: New right IJ central line, right radial arterial line 08/03/18- DCd right femoral Vas-Cath placed 08/03/18-May need Permecath -defer to nephrology Patient remains ill but steadily improving. Breathing comfortably remains off pressors last 48 hours. WBC count though elevated is trending down. We will consult hospitalist to assume care 08/08/2018 Level 3 Code Status: Full
[2018-08-07 07:53] LABS: Potassium 2.9 meq/L (3.5-5.1)
[2018-08-07] MEDS: Pantoprazole Inj 40 MG Vial IV.PUSH SCH (09:17)
[2018-08-07] MEDS: Morphine Sulfate 15 MG IR Tablet PO PRN ×2 (09:17→17:42)
[2018-08-07] MEDS: Levothyroxine 112 MCG Tablet PO SCH (09:18)
[2018-08-07] MEDS: Senna/Docusate Sodium 8.6/50 MG Tablet PO SCH ×2 (09:18→20:43)
[2018-08-07] MEDS: predniSONE 10 MG Tablet PO SCH (09:19)
--- NOTE | 2018-08-07 09:57 | P.PNNP ---
Subjective Interval history: Reports mild shortness of breath and chest discomfort. Creatinine has improved at 2.79 today and urinary output has increased. <Cher Freeman - Last Filed: 08/07/18 15:55> Physical Exam Vital signs: Vital Signs 08/06/18 10:00 08/06/18 11:00 08/06/18 12:00 Temperature 98.9 F 98.7 F 99.1 F Pulse Rate 75 76 74 Respiratory Rate 20 20 19 Blood Pressure 113/55 L 117/62 117/62 Pulse Oximetry 92 L 87 L 91 L 08/06/18 13:00 08/06/18 14:00 08/06/18 15:00 Temperature 98.9 F 98.9 F 98.9 F Pulse Rate 71 75 71 Respiratory Rate 20 20 20 Blood Pressure 114/79 114/79 114/79 Pulse Oximetry 92 L 92 L 92 L 08/06/18 16:00 08/06/18 16:07 08/06/18 17:00 Temperature 98.1 F 98.4 F Pulse Rate 77 80 80 Respiratory Rate 18 19 19 Blood Pressure 143/74 H 151/78 H Pulse Oximetry 98 94 L 08/06/18 18:00 08/06/18 19:00 08/06/18 19:15 Temperature 98.7 F 98.2 F Pulse Rate 76 77 75 Respiratory Rate 20 20 Blood Pressure 145/69 H 130/57 L 116/60 Pulse Oximetry 93 L 95 95 08/06/18 19:30 08/06/18 19:45 08/06/18 20:00 Temperature 98.8 F Pulse Rate 75 73 73 Respiratory Rate Blood Pressure 117/57 L 126/56 L 129/65 Pulse Oximetry 92 L 91 L 91 L 08/06/18 20:15 08/06/18 20:30 08/06/18 20:45 Temperature Pulse Rate 72 72 72 Respiratory Rate Blood Pressure 133/71 128/66 124/70 Pulse Oximetry 94 L 94 L 91 L 08/06/18 21:00 08/06/18 21:15 08/06/18 21:27 Temperature Pulse Rate 71 71 Respiratory Rate Blood Pressure 123/60 126/62 Pulse Oximetry 93 L 93 L 92 L 08/06/18 21:30 08/06/18 21:45 08/06/18 22:00 Temperature Pulse Rate 74 77 78 Respiratory Rate Blood Pressure 124/67 130/68 Pulse Oximetry 94 L 93 L 93 L 08/06/18 22:15 08/06/18 22:30 08/06/18 22:45 Temperature Pulse Rate 76 75 73 Respiratory Rate Blood Pressure 120/61 120/61 121/61 Pulse Oximetry 93 L 93 L 94 L 08/06/18 23:00 08/06/18 23:15 08/06/18 23:30 Temperature Pulse Rate 73 72 72 Respiratory Rate Blood Pressure 128/62 133/63 132/62 Pulse Oximetry 93 L 93 L 93 L 08/06/18 23:45 08/07/18 00:00 08/07/18 00:15 Temperature 99.1 F Pulse Rate 72 75 76 Respiratory Rate Blood Pressure 127/63 132/60 133/66 Pulse Oximetry 92 L 91 L 90 L 08/07/18 00:30 08/07/18 00:45 08/07/18 01:00 Temperature Pulse Rate 75 75 75 Respiratory Rate Blood Pressure 135/67 137/68 135/71 Pulse Oximetry 92 L 93 L 92 L 08/07/18 01:15 08/07/18 01:30 08/07/18 01:45 Temperature Pulse Rate 80 75 75 Respiratory Rate Blood Pressure 136/72 140/71 147/77 H Pulse Oximetry 92 L 92 L 92 L 08/07/18 02:00 08/07/18 02:15 08/07/18 02:30 Temperature Pulse Rate 75 76 74 Respiratory Rate Blood Pressure 144/71 H 141/74 H 143/74 H Pulse Oximetry 93 L 93 L 93 L 08/07/18 02:45 08/07/18 03:00 08/07/18 03:15 Temperature Pulse Rate 74 74 73 Respiratory Rate Blood Pressure 136/67 141/71 H 136/70 Pulse Oximetry 93 L 92 L 93 L 08/07/18 03:30 08/07/18 03:45 08/07/18 04:00 Temperature Pulse Rate 73 74 73 Respiratory Rate Blood Pressure 137/70 139/71 140/74 Pulse Oximetry 93 L 93 L 93 L 08/07/18 04:15 08/07/18 04:30 08/07/18 04:45 Temperature Pulse Rate 74 77 74 Respiratory Rate Blood Pressure 142/73 H 144/71 H 139/69 Pulse Oximetry 93 L 92 L 93 L 08/07/18 05:00 08/07/18 05:06 08/07/18 05:15 Temperature Pulse Rate 72 72 72 Respiratory Rate 18 Blood Pressure 130/65 133/68 Pulse Oximetry 91 L 96 08/07/18 05:30 08/07/18 05:31 08/07/18 05:45 Temperature Pulse Rate 75 74 Respiratory Rate 16 Blood Pressure 126/65 129/63 Pulse Oximetry 91 L 92 L 08/07/18 06:00 08/07/18 08:48 Temperature Pulse Rate 73 84 Respiratory Rate 19 Blood Pressure 131/63 Pulse Oximetry 91 L Intake & Output 08/06/18 08/07/18 08/07/18 18:59 06:59 18:59 Intake Total 1700 / 1700 300 / 300 Output Total 8400 / 8400 3800 / 3800 Balance -6700 / -6700 -3500 / -3500 Weight 91.4 kg Intake: IV 500 / 500 Azactam Inj 2 GM In NS Inj 100 200 / 200 ML @ 200 mls/hr IV.SIG Q8H [facility] Rx#:[id number] Flagyl 500 MG Inj 100 ML @ 100 300 / 300 mls/hr IV.SIG Q8H [facility] Rx#: [id number] Oral 1200 / 1200 300 / 300 Output: Hemodialysis Amount 7600 / 7600 Urine Amount (Catheter) 800 / 800 3800 / 3800 Indwelling Urethral Catheter 800 / 800 3800 / 3800 Other: # Bowel Movements 0 Narrative: GENERAL: Alert, NAD SKIN: Warm and dry. HEAD: Atraumatic. Normocephalic. NECK: Trachea midline. No JVD. CARDIOVASCULAR: regular, Murmur present. Pacemaker RESPIRATORY: Tachypneic but no accessory muscle use. Clear to auscultation bilaterally. GASTROINTESTINAL: Abdomen soft, non-tender, large. Positive Bowel sounds. MUSCULOSKELETAL: Extremities without clubbing, cyanosis. No edema - Urinary Catheter Management Indwelling Urethral Catheter Cath placed during this visit: no Reason for continuing: Acute urinary retention <Cher Freeman - Last Filed: 08/07/18 15:55> Vital signs: Vital Signs 08/08/18 11:00 08/08/18 12:00 08/08/18 13:00 Temperature 99 F Pulse Rate 72 67 71 Respiratory Rate 22 Blood Pressure 132/76 132/68 133/71 Pulse Oximetry 98 98 98 08/08/18 14:00 08/08/18 15:00 08/08/18 15:56 Temperature Pulse Rate 61 65 66 Respiratory Rate 17 Blood Pressure 126/71 135/73 Pulse Oximetry 97 98 08/08/18 16:00 08/08/18 17:00 08/08/18 17:01 Temperature 98.3 F Pulse Rate 64 79 72 Respiratory Rate 20 Blood Pressure 153/90 H 135/71 Pulse Oximetry 100 99 100 08/08/18 18:00 08/08/18 19:00 08/08/18 19:27 Temperature Pulse Rate 70 71 Respiratory Rate 16 Blood Pressure 149/77 H 135/75 Pulse Oximetry 95 97 08/08/18 20:00 08/08/18 21:00 08/08/18 21:05 Temperature 98.6 F Pulse Rate 73 74 Respiratory Rate Blood Pressure 124/83 138/79 Pulse Oximetry 96 98 96 08/08/18 22:00 08/08/18 23:00 08/09/18 00:00 Temperature 99.7 F H Pulse Rate 68 79 66 Respiratory Rate Blood Pressure 134/81 142/74 H 156/83 H Pulse Oximetry 95 98 97 08/09/18 01:00 08/09/18 02:00 08/09/18 03:00 Temperature Pulse Rate 66 64 64 Respiratory Rate Blood Pressure 140/83 125/78 113/72 Pulse Oximetry 97 98 98 08/09/18 04:00 08/09/18 05:00 08/09/18 05:46 Temperature 99.3 F Pulse Rate 65 68 Respiratory Rate 16 Blood Pressure 153/82 H 125/66 Pulse Oximetry 93 L 98 08/09/18 06:00 08/09/18 07:52 Temperature Pulse Rate 79 74 Respiratory Rate 19 Blood Pressure 134/86 Pulse Oximetry 97 94 L Intake & Output 08/08/18 08/09/18 08/09/18 18:59 06:59 18:59 Intake Total 460 / 460 1441 / 1441 100 / 100 Output Total 4200 / 4200 450 / 450 Balance -3740 / -3740 991 / 991 100 / 100 Intake: IV 100 / 100 721 / 721 100 / 100 Azactam Inj 2 GM In NS Inj 100 100 / 100 200 / 200 ML @ 200 mls/hr IV.SIG Q8H [facility] Rx#:[id number] KCl 20 mEq Premix Inj 20 meq In 100 / 100 100 ml @ 50 mls/hr IV.SIG Q2H [facility] Rx#:[id number] Vancomycin Inj 2,100 MG In NS 521 / 521 Inj 500 ML @ 250 mls/hr IV.SIG ONCE ONE Rx#:[id number] Oral 360 / 360 720 / 720 Other 0 / 0 Output: Urine 4200 / 4200 450 / 450 Hemodialysis Amount 0 / 0 0 / 0 Other: Other Intake Source Saline Solution Date of Last Bowel Movement 08/08/18 08/08/18 # Bowel Movements 5 5 - Urinary Catheter Management Indwelling Urethral Catheter Cath placed during this visit: no <Slim Arrieta - Last Filed: 08/09/18 10:38> Assessment and Plan - Assessment (1) Acute kidney injury superimposed on CKD Code(s): N17.9 - Acute kidney failure, unspecified; N18.9 - Chronic kidney disease, unspecified Status: Acute Plan: Acute kidney injury with history of chronic kidney disease Started on CRRT as patient on multiple pressors, anuric, and severe metabolic acidosis. Right femoral vas cath Creatinine at 2.55 ->3.43 ->2.97 ->4.39 ->2.79 Urinary output has improved. Plan Avoid nephrotoxins and dye studies Hypokalemia, replacement given Continue lasix BID Antibiotics per ID renal dose as appropriate Significant proteinuria, 24 hour urine for protein in process, will need kidney biopsy when stable Hemodialysis yesterday, tolerated well. Will follow urinary output, BMP, and watch for renal recovery Will evaluate in AM to assess for need for hemodialysis tomorrow Labs in AM (2) SLE (systemic lupus erythematosus) Code(s): M32.9 - Systemic lupus erythematosus, unspecified Status: Acute Plan: Check for Lupus activity. DNA DS pending. - Plan Check for Lupus activity. DNA DS normal <Cher Freeman - Last Filed: 08/07/18 15:55> - Assessment (1) Acute kidney injury superimposed on CKD Code(s): N17.9 - Acute kidney failure, unspecified; N18.9 - Chronic kidney disease, unspecified Status: Acute Plan: Patient seen and examined, agree with above. HD was done yesterday. Urine out put is good, follow BMP in AM and decide about further HD. (2) SLE (systemic lupus erythematosus) Code(s): M32.9 - Systemic lupus erythematosus, unspecified Status: Acute (3) Hypertension Code(s): I10 - Essential (primary) hypertension Status: Acute <Slim Arrieta - Last Filed: 08/09/18 10:38>
--- NOTE | 2018-08-07 15:48 | P.PNID ---
Subjective Remarks: doing well On NC O2 WBC keeps going down, 27K today all clx remain negative afebrile c/o pain L chest sats low 90ies Antibiotics: azactam flagyl vancomycin Allergies/Adverse Reactions: Allergies cephalexin Allergy (Severe, Verified 07/13/18 17:57) RASH,SWELLING Fish Containing Products Allergy (Severe, Verified 07/13/18 17:57) SWELLING IN THROAT, SOB ketorolac Allergy (Severe, Verified 07/13/18 17:57) RASH penicillin G Allergy (Severe, Verified 07/13/18 17:57) RASH,SWELLING prochlorperazine Allergy (Mild, Verified 07/13/18 17:57) DYSTONIC REACTION promethazine Allergy (Mild, Verified 07/13/18 17:57) DYSTONIC REACTION Objective Vital Signs 08/06/18 16:00 08/06/18 16:07 08/06/18 17:00 Temperature 98.1 F 98.4 F Pulse Rate 77 80 80 Respiratory Rate 18 19 19 Blood Pressure 143/74 H 151/78 H Pulse Oximetry 98 94 L 08/06/18 18:00 08/06/18 19:00 08/06/18 19:15 Temperature 98.7 F 98.2 F Pulse Rate 76 77 75 Respiratory Rate 20 20 Blood Pressure 145/69 H 130/57 L 116/60 Pulse Oximetry 93 L 95 95 08/06/18 19:30 08/06/18 19:45 08/06/18 20:00 Temperature 98.8 F Pulse Rate 75 73 73 Respiratory Rate Blood Pressure 117/57 L 126/56 L 129/65 Pulse Oximetry 92 L 91 L 91 L 08/06/18 20:15 08/06/18 20:30 08/06/18 20:45 Temperature Pulse Rate 72 72 72 Respiratory Rate Blood Pressure 133/71 128/66 124/70 Pulse Oximetry 94 L 94 L 91 L 08/06/18 21:00 08/06/18 21:15 08/06/18 21:27 Temperature Pulse Rate 71 71 Respiratory Rate Blood Pressure 123/60 126/62 Pulse Oximetry 93 L 93 L 92 L 08/06/18 21:30 08/06/18 21:45 08/06/18 22:00 Temperature Pulse Rate 74 77 78 Respiratory Rate Blood Pressure 124/67 130/68 Pulse Oximetry 94 L 93 L 93 L 08/06/18 22:15 08/06/18 22:30 08/06/18 22:45 Temperature Pulse Rate 76 75 73 Respiratory Rate Blood Pressure 120/61 120/61 121/61 Pulse Oximetry 93 L 93 L 94 L 08/06/18 23:00 08/06/18 23:15 08/06/18 23:30 Temperature Pulse Rate 73 72 72 Respiratory Rate Blood Pressure 128/62 133/63 132/62 Pulse Oximetry 93 L 93 L 93 L 08/06/18 23:45 08/07/18 00:00 08/07/18 00:15 Temperature 99.1 F Pulse Rate 72 75 76 Respiratory Rate Blood Pressure 127/63 132/60 133/66 Pulse Oximetry 92 L 91 L 90 L 08/07/18 00:30 08/07/18 00:45 08/07/18 01:00 Temperature Pulse Rate 75 75 75 Respiratory Rate Blood Pressure 135/67 137/68 135/71 Pulse Oximetry 92 L 93 L 92 L 08/07/18 01:15 08/07/18 01:30 08/07/18 01:45 Temperature Pulse Rate 80 75 75 Respiratory Rate Blood Pressure 136/72 140/71 147/77 H Pulse Oximetry 92 L 92 L 92 L 08/07/18 02:00 08/07/18 02:15 08/07/18 02:30 Temperature Pulse Rate 75 76 74 Respiratory Rate Blood Pressure 144/71 H 141/74 H 143/74 H Pulse Oximetry 93 L 93 L 93 L 08/07/18 02:45 08/07/18 03:00 08/07/18 03:15 Temperature Pulse Rate 74 74 73 Respiratory Rate Blood Pressure 136/67 141/71 H 136/70 Pulse Oximetry 93 L 92 L 93 L 08/07/18 03:30 08/07/18 03:45 08/07/18 04:00 Temperature Pulse Rate 73 74 73 Respiratory Rate Blood Pressure 137/70 139/71 140/74 Pulse Oximetry 93 L 93 L 93 L 08/07/18 04:15 08/07/18 04:30 08/07/18 04:45 Temperature Pulse Rate 74 77 74 Respiratory Rate Blood Pressure 142/73 H 144/71 H 139/69 Pulse Oximetry 93 L 92 L 93 L 08/07/18 05:00 08/07/18 05:06 08/07/18 05:15 Temperature Pulse Rate 72 72 72 Respiratory Rate 18 Blood Pressure 130/65 133/68 Pulse Oximetry 91 L 96 08/07/18 05:30 08/07/18 05:31 08/07/18 05:45 Temperature Pulse Rate 75 74 Respiratory Rate 16 Blood Pressure 126/65 129/63 Pulse Oximetry 91 L 92 L 08/07/18 06:00 08/07/18 07:00 08/07/18 08:00 Temperature 97.8 F Pulse Rate 73 73 75 Respiratory Rate 20 Blood Pressure 131/63 131/63 141/67 H Pulse Oximetry 91 L 91 L 87 L 08/07/18 08:48 08/07/18 09:00 08/07/18 10:00 Temperature 98.2 F 98.3 F Pulse Rate 84 77 79 Respiratory Rate 19 19 20 Blood Pressure 132/68 144/77 H Pulse Oximetry 92 L 96 08/07/18 11:00 08/07/18 11:30 08/07/18 12:00 Temperature 98.5 F 98.4 F Pulse Rate 75 67 Respiratory Rate 20 20 Blood Pressure 129/68 132/65 Pulse Oximetry 94 L 93 L 92 L 08/07/18 13:00 08/07/18 14:00 08/07/18 15:00 Temperature 98 F 98.4 F 98.8 F Pulse Rate 75 72 68 Respiratory Rate 20 20 18 Blood Pressure 133/78 131/63 122/57 L Pulse Oximetry 92 L 93 L 93 L Intake & Output 08/06/18 08/07/18 08/07/18 18:59 06:59 18:59 Intake Total 1700 / 1700 300 / 300 200 / 200 Output Total 8400 / 8400 3800 / 3800 Balance -6700 / -6700 -3500 / -3500 200 / 200 Weight 91.4 kg Intake: IV 500 / 500 200 / 200 Azactam Inj 2 GM In NS Inj 100 200 / 200 100 / 100 ML @ 200 mls/hr IV.SIG Q8H [facility] Rx#:[id number] Flagyl 500 MG Inj 100 ML @ 100 300 / 300 100 / 100 mls/hr IV.SIG Q8H [facility] Rx#: [id number] Oral 1200 / 1200 300 / 300 Output: Hemodialysis Amount 7600 / 7600 Urine Amount (Catheter) 800 / 800 3800 / 3800 Indwelling Urethral Catheter 800 / 800 3800 / 3800 Other: Date of Last Bowel Movement 08/07/18 # Bowel Movements 0 08/05/18 09:52 Blood - Peripheral Aerobic Blood Culture - Preliminary No growth in 2 days 08/05/18 09:52 Blood - Peripheral Anaerobic Blood Culture - Preliminary No growth in 2 days 08/05/18 10:00 Blood - Peripheral Aerobic Blood Culture - Preliminary No growth in 2 days 08/05/18 10:00 Blood - Peripheral Anaerobic Blood Culture - Preliminary No growth in 2 days 08/03/18 00:35 Blood - Peripheral Aerobic Blood Culture - Preliminary No growth in 4 days 08/03/18 00:35 Blood - Peripheral Anaerobic Blood Culture - Final QNS - See aerobic report. 08/03/18 08:20 Blood - Peripheral Aerobic Blood Culture - Preliminary No growth in 4 days 08/03/18 08:20 Blood - Peripheral Anaerobic Blood Culture - Final QNS - See aerobic report. 08/04/18 15:36 Clean Catch Urine Urine Culture - Final No growth in 48 hours 08/03/18 05:09 Catheterized Urine Urine Culture - Final 50-100,000 cfu/mL mixed gram positive narayan (probable contaminants) Lab - Hematology Results 08/06/18 08/07/18 05:22 06:23 WBC 35.6 H 26.9 H RBC 2.40 L 2.75 L Hgb 6.8 L* 7.9 L Hct 21.3 L 24.0 L MCV 88.8 87.3 MCH 28.3 28.9 MCHC 31.8 L 33.1 RDW 15.1 15.0 Plt Count 82 L D 96 L MPV 9.7 8.3 Lab - Chemistry Results 08/05/18 08/06/18 08/06/18 17:22 01:08 05:22 Sodium 138 Potassium 3.8 Chloride 99 Carbon Dioxide 23.9 Anion Gap 15 BUN 50 H Creatinine 4.39 H Estimated GFR 11 L POC Glucose 135 H 152 H Random Glucose 142 H Calcium 6.6 L* Prot Corrected Calcium 7.2 L* Magnesium 2.0 Total Bilirubin 0.3 AST 100 H ALT 104 H Alkaline Phosphatase 78 Total Protein 5.9 L D Albumin 3.0 L 08/06/18 08/06/18 08/06/18 06:52 11:58 17:17 Sodium Potassium Chloride Carbon Dioxide Anion Gap BUN Creatinine Estimated GFR POC Glucose 142 H 166 H 126 H Random Glucose Calcium Prot Corrected Calcium Magnesium Total Bilirubin AST ALT Alkaline Phosphatase Total Protein Albumin 08/07/18 08/07/18 08/07/18 00:03 06:04 06:23 Sodium 140 Potassium 2.9 L* D Chloride 99 Carbon Dioxide 31.6 Anion Gap 9 BUN 32 H Creatinine 2.79 H Estimated GFR 19 L POC Glucose 138 H 130 H Random Glucose 124 H Calcium 8.1 L D Prot Corrected Calcium Magnesium Total Bilirubin 0.4 AST 61 H ALT 92 H Alkaline Phosphatase 93 Total Protein 6.4 Albumin 3.2 L 08/07/18 12:08 Sodium Potassium Chloride Carbon Dioxide Anion Gap BUN Creatinine Estimated GFR POC Glucose 176 H Random Glucose Calcium Prot Corrected Calcium Magnesium Total Bilirubin AST ALT Alkaline Phosphatase Total Protein Albumin Imaging: ITS Impressions Chest X-Ray 08/06/18 06:00 CONCLUSION: 1. Patient has been extubated with right IJ central line removed. 2. Otherwise, no significant interval change with continued bilateral lower lung zone airspace disease and likely small pleural effusions. Physical Exam: GENERAL: NAD SKIN: Warm and dry. NO rash HEAD: Atraumatic. Normocephalic. EYES: Pupils equal and round. No scleral icterus. No injection or drainage. ENT: No nasal bleeding or discharge. Mucous membranes pink and moist. NECK: Trachea midline. No JVD. CARDIOVASCULAR: Regular rate and rhythm. + Murmur L sternal upper border L chest incision dry, clean RESPIRATORY: No accessory muscle use. Clear to auscultation. Breath sounds equal bilaterally. GASTROINTESTINAL: Abdomen soft, non-tender, nondistended. Hepatic and splenic margins not palpable. MUSCULOSKELETAL: Extremities without clubbing, cyanosis, or edema. No obvious deformities. NEUROLOGICAL: Awake and alert. No obvious cranial nerve deficits. Motor grossly within normal limits. Five out of 5 muscle strength in the arms and legs. Normal speech. 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 sp lead revision last clx from April, prior to that MSSA, MRSA Pacer/AICD depended - removal of pacer not an option - jeanna Torres Pt is doing much better today PLAN: dc Flagyl cont azactam, cont Vanco per levels -level ordered for 08/05; redose if <=20 monitor clinically monitor cultures untill final will check bartonella, coxiella serologies jeanna Torres
[2018-08-08] MEDS: Morphine Sulfate Inj 2 MG/ML Vial IV.PUSH PRN ×6 (01:24→21:57)
[2018-08-08] MEDS: Morphine Sulfate 15 MG IR Tablet PO PRN ×3 (02:47→19:34)
--- NOTE | 2018-08-08 03:31 | XR ---
EXAM DATE: 08/08/2018 6:00 AM EDT AGE/SEX: 42 years / Female INDICATIONS: Short of breath. CLINICAL DATA: This is the patient's subsequent encounter. Patient reports that signs and symptoms h ave been present for 4 - 6 days and indicates a pain score of 0/10. MEDICAL/SURGICAL HISTORY: None. Pacemaker. COMPARISON: C, CHEST 1V SINGLE AP, 08/06/2018. . FINDINGS: Stable mild hazy opacities in the lung bases bilaterally. Cardiomediastinal contours are stable. Bony thorax is intact. CONCLUSION: 1. No significant interval change. 2. Stable bilateral lower lung zone airspace disease and likely trace pleural effusion. Electronically signed by: Gil Valente MD 08/08/2018 3:29 AM EDT
[2018-08-08] MEDS: Chlorhexidine Gluconate 2% 1 Pack (2 Cloths) TOPICAL SCH (04:08)
[2018-08-08] MEDS: Insulin NovoLOG Aspart Correctional Sugar Inj SQ SCH ×3 (06:31→17:27)
[2018-08-08 07:27] LABS: Baso # (Auto) 0.1 th/mm3 (0.0-0.2); Baso % (Auto) 0.3 % (0.0-2.0); Eos # (Auto) 0.2 th/mm3 (0.0-0.4); Hemoglobin 9.2 gm/dL (11.6-15.3); Lymph # (Auto) 2.1 th/mm3 (1.0-4.8); Lymph % (Auto) 10.8 % (9.0-44.0); Mean Corpuscular HGB Conc 32.7 % (32.0-36.0); Mean Corpuscular Hemoglobin 28.6 pg (27.0-34.0); Mean Corpuscular Volume 87.3 fL (80.0-100.0); Mean Platelet Volume 8.2 fL (7.0-11.0); Mono # (Auto) 1.4 th/mm3 (0.0-0.9); Mono % (Auto) 7.1 % (0.0-8.0); Neut # (Auto) 15.8 th/mm3 (1.8-7.7); Neut % (Auto) 80.8 % (16.0-70.0); Platelet Count 131 th/mm3 (150-450); Red Blood Count 3.21 mil/mm3 (4.00-5.30); Red Cell Distribution Width 14.9 % (11.6-17.2); White Blood Count 19.5 th/mm3 (4.0-11.0)
[2018-08-08 07:46] LABS: Alanine Aminotransferase 87 U/L (10-53); Albumin 3.4 g/dL (3.4-5.0); Alkaline Phosphatase 95 U/L (45-117); Anion Gap 11 meq/L (5-15); Aspartate Aminotransferase 50 U/L (15-37); Blood Urea Nitrogen 40 mg/dL (7-18); Carbon Dioxide 35.2 meq/L (21.0-32.0); Chloride 96 meq/L (98-107); Glomerular Filtration Rate 19 mL/min (>89); Glucose,Random 92 mg/dL (74-106); Magnesium 1.7 mg/dL (1.5-2.5); Phosphorus 2.1 mg/dL (2.5-4.9); Sodium 142 meq/L (136-145)
[2018-08-08 07:49] LABS: Potassium 2.6 meq/L (3.5-5.1)
[2018-08-08 08:47] LABS: Eosinophils 2 % (0-4); Lymphocytes 12 % (9-44); Monocytes 5 % (0-8); Myelocytes 2 % (0-0); Platelet Morphology Normal (Normal)
[2018-08-08 08:48] LABS: Polychromasia 2.2 % (0.0-1.9)
[2018-08-08] MEDS: Aztreonam Inj 2 GM in Sodium Chloride 0.9% Inj 100 ML IV.SIG SCH ×2 (09:33→17:24)
[2018-08-08] MEDS: Pantoprazole Inj 40 MG Vial IV.PUSH SCH (09:34)
[2018-08-08] MEDS: predniSONE 10 MG Tablet PO SCH (09:34)
[2018-08-08] MEDS: Levothyroxine 112 MCG Tablet PO SCH (09:35)
[2018-08-08] MEDS: Senna/Docusate Sodium 8.6/50 MG Tablet PO SCH ×2 (10:00→21:12)
--- NOTE | 2018-08-08 10:03 | P.PNNP ---
Subjective Interval history: Patient reports feeling tired from being up all night secondary to urination. Denies any shortness of breath. Mild chest discomfort. Creatinine essentially unchanged from yesterday at 2.72. <LydiaCher - Last Filed: 08/08/18 09:55> Physical Exam Vital signs: Vital Signs 08/07/18 10:00 08/07/18 11:00 08/07/18 11:30 Temperature 98.3 F 98.5 F Pulse Rate 79 75 Respiratory Rate 20 20 Blood Pressure 144/77 H 129/68 Pulse Oximetry 96 94 L 93 L 08/07/18 12:00 08/07/18 13:00 08/07/18 14:00 Temperature 98.4 F 98 F 98.4 F Pulse Rate 67 75 72 Respiratory Rate 20 20 20 Blood Pressure 132/65 133/78 131/63 Pulse Oximetry 92 L 92 L 93 L 08/07/18 14:30 08/07/18 14:45 08/07/18 15:00 Temperature 98.8 F Pulse Rate 67 69 68 Respiratory Rate 18 Blood Pressure 141/66 H 137/65 122/57 L Pulse Oximetry 92 L 90 L 93 L 08/07/18 15:15 08/07/18 15:30 08/07/18 15:45 Temperature Pulse Rate 67 68 69 Respiratory Rate Blood Pressure 125/60 138/70 141/71 H Pulse Oximetry 93 L 94 L 93 L 08/07/18 15:58 08/07/18 16:00 08/07/18 16:15 Temperature 98.1 F Pulse Rate 71 71 73 Respiratory Rate 18 20 Blood Pressure 143/69 H 139/69 Pulse Oximetry 97 97 08/07/18 16:30 08/07/18 16:45 08/07/18 17:00 Temperature 98.1 F Pulse Rate 75 78 75 Respiratory Rate 20 Blood Pressure 146/75 H 145/73 H 131/62 Pulse Oximetry 99 86 L 87 L 08/07/18 17:15 08/07/18 17:30 08/07/18 17:45 Temperature Pulse Rate 75 76 75 Respiratory Rate Blood Pressure 134/64 131/70 133/68 Pulse Oximetry 93 L 91 L 92 L 08/07/18 18:00 08/07/18 18:15 08/07/18 18:30 Temperature 98.1 F Pulse Rate 76 75 74 Respiratory Rate 20 Blood Pressure 137/70 141/73 H 147/72 H Pulse Oximetry 92 L 94 L 93 L 08/07/18 18:45 08/07/18 19:00 08/07/18 19:15 Temperature 98.1 F Pulse Rate 74 80 75 Respiratory Rate 20 Blood Pressure 150/73 H 189/100 H 160/79 H Pulse Oximetry 93 L 91 L 93 L 08/07/18 19:30 08/07/18 20:00 08/07/18 20:30 Temperature 98.8 F Pulse Rate 75 74 75 Respiratory Rate Blood Pressure 161/82 H 161/78 H 162/79 H Pulse Oximetry 95 95 96 08/07/18 20:44 08/07/18 21:00 08/07/18 21:30 Temperature Pulse Rate 79 75 Respiratory Rate Blood Pressure 158/76 H 143/69 H Pulse Oximetry 96 98 96 08/07/18 22:00 08/07/18 22:30 08/07/18 23:00 Temperature Pulse Rate 74 72 74 Respiratory Rate Blood Pressure 154/72 H 156/71 H 159/74 H Pulse Oximetry 96 94 L 94 L 08/07/18 23:30 08/08/18 00:00 08/08/18 00:03 Temperature 98.6 F Pulse Rate 74 75 75 Respiratory Rate 18 Blood Pressure 164/77 H 160/75 H Pulse Oximetry 95 95 08/08/18 00:04 08/08/18 00:30 08/08/18 01:00 Temperature Pulse Rate 79 76 Respiratory Rate Blood Pressure 160/76 H 158/77 H Pulse Oximetry 99 96 96 08/08/18 01:30 08/08/18 02:00 08/08/18 02:30 Temperature Pulse Rate 76 75 78 Respiratory Rate Blood Pressure 170/84 H 172/81 H 160/74 H Pulse Oximetry 97 97 96 08/08/18 03:00 08/08/18 03:30 08/08/18 04:00 Temperature 98.1 F Pulse Rate 77 77 76 Respiratory Rate Blood Pressure 183/86 H 187/99 H 186/88 H Pulse Oximetry 95 92 L 95 08/08/18 04:03 08/08/18 04:11 08/08/18 06:00 Temperature Pulse Rate 75 76 Respiratory Rate Blood Pressure 185/86 H Pulse Oximetry 95 96 08/08/18 06:29 08/08/18 07:53 Temperature Pulse Rate 72 Respiratory Rate 12 19 Blood Pressure Pulse Oximetry 96 Intake & Output 08/07/18 08/08/18 08/08/18 18:59 06:59 18:59 Intake Total 300 / 300 340 / 340 Output Total 4025 / 4025 Balance 300 / 300 -3685 / -3685 Weight 86 kg Intake: IV 300 / 300 100 / 100 Azactam Inj 2 GM In NS Inj 100 200 / 200 100 / 100 ML @ 200 mls/hr IV.SIG Q8H SHUKRI Rx#:[id number] Flagyl 500 MG Inj 100 ML @ 100 100 / 100 mls/hr IV.SIG Q8H SHUKRI Rx#: [id number] Oral 240 / 240 Other 0 / 0 Output: Urine 4025 / 4025 Hemodialysis Amount 0 / 0 Other: Date of Last Bowel Movement 08/07/18 08/07/18 # Bowel Movements 0 Narrative: GENERAL: Alert, NAD SKIN: Warm and dry. Vas cath right femoral vein. HEAD: Atraumatic. Normocephalic. NECK: Trachea midline. No JVD. CARDIOVASCULAR: regular, Murmur present. Pacemaker RESPIRATORY: Tachypneic but no accessory muscle use. Clear to auscultation bilaterally. GASTROINTESTINAL: Abdomen soft, non-tender, large. Positive Bowel sounds. MUSCULOSKELETAL: Extremities without clubbing, cyanosis. No edema - Urinary Catheter Management Indwelling Urethral Catheter Cath placed during this visit: yes, but has since been removed by the nurse Reason for continuing: Decision to DC catheter Removal date: 08/07/18 Removal time: 18:00 <Cher Freeman - Last Filed: 08/08/18 09:55> Vital signs: Vital Signs 08/08/18 11:00 08/08/18 12:00 08/08/18 13:00 Temperature 99 F Pulse Rate 72 67 71 Respiratory Rate 22 Blood Pressure 132/76 132/68 133/71 Pulse Oximetry 98 98 98 08/08/18 14:00 08/08/18 15:00 08/08/18 15:56 Temperature Pulse Rate 61 65 66 Respiratory Rate 17 Blood Pressure 126/71 135/73 Pulse Oximetry 97 98 08/08/18 16:00 08/08/18 17:00 08/08/18 17:01 Temperature 98.3 F Pulse Rate 64 79 72 Respiratory Rate 20 Blood Pressure 153/90 H 135/71 Pulse Oximetry 100 99 100 08/08/18 18:00 08/08/18 19:00 08/08/18 19:27 Temperature Pulse Rate 70 71 Respiratory Rate 16 Blood Pressure 149/77 H 135/75 Pulse Oximetry 95 97 08/08/18 20:00 08/08/18 21:00 08/08/18 21:05 Temperature 98.6 F Pulse Rate 73 74 Respiratory Rate Blood Pressure 124/83 138/79 Pulse Oximetry 96 98 96 08/08/18 22:00 08/08/18 23:00 08/09/18 00:00 Temperature 99.7 F H Pulse Rate 68 79 66 Respiratory Rate Blood Pressure 134/81 142/74 H 156/83 H Pulse Oximetry 95 98 97 08/09/18 01:00 08/09/18 02:00 08/09/18 03:00 Temperature Pulse Rate 66 64 64 Respiratory Rate Blood Pressure 140/83 125/78 113/72 Pulse Oximetry 97 98 98 08/09/18 04:00 08/09/18 05:00 08/09/18 05:46 Temperature 99.3 F Pulse Rate 65 68 Respiratory Rate 16 Blood Pressure 153/82 H 125/66 Pulse Oximetry 93 L 98 08/09/18 06:00 08/09/18 07:52 Temperature Pulse Rate 79 74 Respiratory Rate 19 Blood Pressure 134/86 Pulse Oximetry 97 94 L Intake & Output 08/08/18 08/09/18 08/09/18 18:59 06:59 18:59 Intake Total 460 / 460 1441 / 1441 100 / 100 Output Total 4200 / 4200 450 / 450 Balance -3740 / -3740 991 / 991 100 / 100 Intake: IV 100 / 100 721 / 721 100 / 100 Azactam Inj 2 GM In NS Inj 100 100 / 100 200 / 200 ML @ 200 mls/hr IV.SIG Q8H SHUKRI Rx#:[id number] KCl 20 mEq Premix Inj 20 meq In 100 / 100 100 ml @ 50 mls/hr IV.SIG Q2H SHUKRI Rx#:[id number] Vancomycin Inj 2,100 MG In NS 521 / 521 Inj 500 ML @ 250 mls/hr IV.SIG ONCE ONE Rx#:[id number] Oral 360 / 360 720 / 720 Other 0 / 0 Output: Urine 4200 / 4200 450 / 450 Hemodialysis Amount 0 / 0 0 / 0 Other: Other Intake Source Saline Solution Date of Last Bowel Movement 08/08/18 08/08/18 # Bowel Movements 5 5 - Urinary Catheter Management Indwelling Urethral Catheter Cath placed during this visit: no <Slim Arrieta - Last Filed: 08/09/18 10:47> Assessment and Plan - Assessment (1) Acute kidney injury superimposed on CKD Code(s): N17.9 - Acute kidney failure, unspecified; N18.9 - Chronic kidney disease, unspecified Status: Acute Plan: Acute kidney injury with history of chronic kidney disease Started on CRRT as patient on multiple pressors, anuric, and severe metabolic acidosis. Right femoral vas cath Creatinine at 2.55 ->3.43 ->2.97 ->4.39 ->2.79 ->2.72 Urinary output good Plan Avoid nephrotoxins and dye studies Hypokalemia, replacement given Continue lasix BID, dose decreased Antibiotics per ID renal dose as appropriate Significant proteinuria, 24 hour urine for protein in process, will need kidney biopsy when stable Will follow urinary output and BMP. Will hold hemodialysis today, creatinine is stable with good urinary output Labs in AM (2) SLE (systemic lupus erythematosus) Code(s): M32.9 - Systemic lupus erythematosus, unspecified Status: Acute Plan: Check for Lupus activity. DNA DS normal (3) Hypertension Code(s): I10 - Essential (primary) hypertension Status: Acute Plan: Will add amlodipine, PRN given last night. <Cher Freeman - Last Filed: 08/08/18 09:55> - Assessment (1) Acute kidney injury superimposed on CKD Code(s): N17.9 - Acute kidney failure, unspecified; N18.9 - Chronic kidney disease, unspecified Status: Acute Plan: Continue to hold lisinopril, can restart at later date. Follow the 24 hr. urine protein. Anti DNA is normal, unlikely has active lupus Nephritis. Hold HD for now, D/C Vascath if Creatinine improve. (2) SLE (systemic lupus erythematosus) Code(s): M32.9 - Systemic lupus erythematosus, unspecified Status: Acute (3) Hypertension Code(s): I10 - Essential (primary) hypertension Status: Acute <Slim Arrieta - Last Filed: 08/09/18 10:47>
--- NOTE | 2018-08-08 16:43 | P.PNIM ---
Subjective Interval history: Patient reports chronic back pain continues. Had some loose bowel movements today. Nursing to hold laxatives Physical Exam Vital signs: Vital Signs 08/07/18 16:45 08/07/18 17:00 08/07/18 17:15 Temperature 98.1 F Pulse Rate 78 75 75 Respiratory Rate 20 Blood Pressure 145/73 H 131/62 134/64 Pulse Oximetry 86 L 87 L 93 L 08/07/18 17:30 08/07/18 17:45 08/07/18 18:00 Temperature 98.1 F Pulse Rate 76 75 76 Respiratory Rate 20 Blood Pressure 131/70 133/68 137/70 Pulse Oximetry 91 L 92 L 92 L 08/07/18 18:15 08/07/18 18:30 08/07/18 18:45 Temperature Pulse Rate 75 74 74 Respiratory Rate Blood Pressure 141/73 H 147/72 H 150/73 H Pulse Oximetry 94 L 93 L 93 L 08/07/18 19:00 08/07/18 19:15 08/07/18 19:30 Temperature 98.1 F Pulse Rate 80 75 75 Respiratory Rate 20 Blood Pressure 189/100 H 160/79 H 161/82 H Pulse Oximetry 91 L 93 L 95 08/07/18 20:00 08/07/18 20:30 08/07/18 20:44 Temperature 98.8 F Pulse Rate 74 75 Respiratory Rate Blood Pressure 161/78 H 162/79 H Pulse Oximetry 95 96 96 08/07/18 21:00 08/07/18 21:30 08/07/18 22:00 Temperature Pulse Rate 79 75 74 Respiratory Rate Blood Pressure 158/76 H 143/69 H 154/72 H Pulse Oximetry 98 96 96 08/07/18 22:30 08/07/18 23:00 08/07/18 23:30 Temperature Pulse Rate 72 74 74 Respiratory Rate Blood Pressure 156/71 H 159/74 H 164/77 H Pulse Oximetry 94 L 94 L 95 08/08/18 00:00 08/08/18 00:03 08/08/18 00:04 Temperature 98.6 F Pulse Rate 75 75 Respiratory Rate 18 Blood Pressure 160/75 H Pulse Oximetry 95 99 08/08/18 00:30 08/08/18 01:00 08/08/18 01:30 Temperature Pulse Rate 79 76 76 Respiratory Rate Blood Pressure 160/76 H 158/77 H 170/84 H Pulse Oximetry 96 96 97 08/08/18 02:00 08/08/18 02:30 08/08/18 03:00 Temperature Pulse Rate 75 78 77 Respiratory Rate Blood Pressure 172/81 H 160/74 H 183/86 H Pulse Oximetry 97 96 95 08/08/18 03:30 08/08/18 04:00 08/08/18 04:03 Temperature 98.1 F Pulse Rate 77 76 75 Respiratory Rate Blood Pressure 187/99 H 186/88 H 185/86 H Pulse Oximetry 92 L 95 95 08/08/18 04:11 08/08/18 06:00 08/08/18 06:29 Temperature Pulse Rate 76 Respiratory Rate 12 Blood Pressure Pulse Oximetry 96 08/08/18 07:53 08/08/18 08:00 08/08/18 10:00 Temperature 98.9 F Pulse Rate 72 71 67 Respiratory Rate 19 26 H Blood Pressure 141/65 H Pulse Oximetry 96 98 08/08/18 12:00 08/08/18 14:00 08/08/18 15:56 Temperature 99 F Pulse Rate 67 61 66 Respiratory Rate 22 17 Blood Pressure 132/68 Pulse Oximetry Intake & Output 08/07/18 08/08/18 08/08/18 18:59 06:59 18:59 Intake Total 300 / 300 340 / 340 Output Total 4025 / 4025 Balance 300 / 300 -3685 / -3685 Weight 86 kg Intake: IV 300 / 300 100 / 100 Azactam Inj 2 GM In NS Inj 100 200 / 200 100 / 100 ML @ 200 mls/hr IV.SIG Q8H SHUKRI Rx#:[id number] Flagyl 500 MG Inj 100 ML @ 100 100 / 100 mls/hr IV.SIG Q8H SHUKRI Rx#: [id number] Oral 240 / 240 Other 0 / 0 Output: Urine 4025 / 4025 Hemodialysis Amount 0 / 0 Other: Date of Last Bowel Movement 08/07/18 08/07/18 08/08/18 # Bowel Movements 0 Narrative: GENERAL: Patient sitting up in chair. Appears palpable. Alert and oriented x3. SKIN: Warm and dry. HEAD: Normocephalic. EYES: No scleral icterus. No injection or drainage. NECK: Supple, trachea midline. No JVD. CARDIOVASCULAR: Regular rate and rhythm without murmurs, gallops, or rubs. RESPIRATORY: Breath sounds equal bilaterally. No accessory muscle use. GASTROINTESTINAL: Abdomen soft, non-tender, nondistended. MUSCULOSKELETAL: No cyanosis, or edema. BACK: Nontender without obvious deformity. No CVA tenderness. - Urinary Catheter Management Indwelling Urethral Catheter Cath placed during this visit: yes, but has since been removed by the nurse Reason for continuing: Decision to DC catheter Removal date: 08/07/18 Removal time: 18:00 Results - Labs CBC & Chem 7: 08/08/18 05:40 08/08/18 05:40 Laboratory Results - last 24 hr 08/06/18 08/07/18 08/07/18 11:03 17:15 17:34 WBC RBC Hgb Hct MCV MCH MCHC RDW Plt Count MPV Prelim Diff (Auto) Neut % (Auto) Lymph % (Auto) Hale % (Auto) Eos % (Auto) Baso % (Auto) Neut # (Auto) Lymph # (Auto) Hale # (Auto) Eos # (Auto) Baso # (Auto) WBC Differential Seg Neuts % (Manual) Band Neuts % (Manual) Lymphocytes % (Manual) Monocytes % (Manual) Eosinophils % (Manual) Myelocytes % (Man) Abs Neuts (Manual) Differential Comment Platelet Estimate Platelet Morphology Polychromasia Basophilic Stippling Sodium Potassium Chloride Carbon Dioxide Anion Gap BUN Creatinine Estimated GFR POC Glucose 182 H Random Glucose Calcium Phosphorus Magnesium Total Bilirubin AST ALT Alkaline Phosphatase Total Protein Albumin Ur 24 Hour Volume 5700 Ur Total Protein 24 Hr 1687 H Blood Type A Positive Antibody Screen Negative MTS Gel Crossmatch See Detail 08/07/18 08/08/18 08/08/18 23:18 05:40 05:40 WBC 19.5 H RBC 3.21 L Hgb 9.2 L Hct 28.0 L MCV 87.3 MCH 28.6 MCHC 32.7 RDW 14.9 Plt Count 131 L D MPV 8.2 Prelim Diff (Auto) Slide review pending Neut % (Auto) 80.8 H Lymph % (Auto) 10.8 Hale % (Auto) 7.1 Eos % (Auto) 1.0 Baso % (Auto) 0.3 Neut # (Auto) 15.8 H Lymph # (Auto) 2.1 Hale # (Auto) 1.4 H Eos # (Auto) 0.2 Baso # (Auto) 0.1 WBC Differential Manual diff final Seg Neuts % (Manual) 76 H Band Neuts % (Manual) 3 Lymphocytes % (Manual) 12 Monocytes % (Manual) 5 Eosinophils % (Manual) 2 Myelocytes % (Man) 2 H Abs Neuts (Manual) 15.8 H Differential Comment . Platelet Estimate Low L Platelet Morphology Normal Polychromasia 2.2 H Basophilic Stippling Faint H Sodium 142 Potassium 2.6 L* Chloride 96 L Carbon Dioxide 35.2 H Anion Gap 11 BUN 40 H Creatinine 2.72 H Estimated GFR 19 L POC Glucose 129 H Random Glucose 92 Calcium 8.0 L Phosphorus 2.1 L Magnesium 1.7 Total Bilirubin 0.5 AST 50 H ALT 87 H Alkaline Phosphatase 95 Total Protein 7.0 D Albumin 3.4 Ur 24 Hour Volume Ur Total Protein 24 Hr Blood Type Antibody Screen MTS Gel Crossmatch 08/08/18 05:49 WBC RBC Hgb Hct MCV MCH MCHC RDW Plt Count MPV Prelim Diff (Auto) Neut % (Auto) Lymph % (Auto) Hale % (Auto) Eos % (Auto) Baso % (Auto) Neut # (Auto) Lymph # (Auto) Hale # (Auto) Eos # (Auto) Baso # (Auto) WBC Differential Seg Neuts % (Manual) Band Neuts % (Manual) Lymphocytes % (Manual) Monocytes % (Manual) Eosinophils % (Manual) Myelocytes % (Man) Abs Neuts (Manual) Differential Comment Platelet Estimate Platelet Morphology Polychromasia Basophilic Stippling Sodium Potassium Chloride Carbon Dioxide Anion Gap BUN Creatinine Estimated GFR POC Glucose 107 Random Glucose Calcium Phosphorus Magnesium Total Bilirubin AST ALT Alkaline Phosphatase Total Protein Albumin Ur 24 Hour Volume Ur Total Protein 24 Hr Blood Type Antibody Screen MTS Gel Crossmatch Microbiology 08/05/18 09:52 Blood - Peripheral Aerobic Blood Culture - Preliminary No growth in 3 days 08/05/18 09:52 Blood - Peripheral Anaerobic Blood Culture - Preliminary No growth in 3 days 08/05/18 10:00 Blood - Peripheral Aerobic Blood Culture - Preliminary No growth in 3 days 08/05/18 10:00 Blood - Peripheral Anaerobic Blood Culture - Preliminary No growth in 3 days 08/03/18 00:35 Blood - Peripheral Aerobic Blood Culture - Final No growth in 5 days 08/03/18 00:35 Blood - Peripheral Anaerobic Blood Culture - Final QNS - See aerobic report. 08/03/18 08:20 Blood - Peripheral Aerobic Blood Culture - Final No growth in 5 days 08/03/18 08:20 Blood - Peripheral Anaerobic Blood Culture - Final QNS - See aerobic report. - Imaging Impressions Chest X-Ray 08/08/18 06:00 CONCLUSION: 1. No significant interval change. 2. Stable bilateral lower lung zone airspace disease and likely trace pleural effusion. Assessment and Plan - Plan NEURO: Chronic pain Possible seizures Continue morphine 15 mg p.o. every 8 hours and as needed Valium 10 mg p.o. every 8 hours EEG only if recurrent seizures, Seizure-like activity noticed on 08/03/2018 most likely secondary to decreased perfusion RESP: Acute hypoxemic respiratory failure-improving Extubated 08/05/2018, tolerating well, DuoNeb q6 and PRN Broad spectrum ABX as below Intubated 08/03/2018 for probable seizure, altered mental status and severe cardiogenic shock PH at the time of intubation was 6.9, lactic acid was 15 Acidosis has resolved continue to wean FiO2 as tolerated Continue EzPAP, IS CV: Severe cardiogenic shock-resolved Symptomatic bradycardia with hypotension-resolved AICD malfunction/probable dislodged pacemaker lead, status post lead extraction and placement of new leads Severe lactic acidosis-resolved 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 2D echo shows tricuspid valve endocarditis, ID following-antibiotics as below CVVH started 08/03 due to severe acidosis, now transition to HD Prior ICD pocket infection in December 2017 and February 2018. Recently replaced by Dr. Cervantes. Per device rep she did not follow-up for scheduled outpatient interrogation following device placement. On admission, interrogation shows pacemaker intermittently capturing per [employer] rep. Holding spironolactone 25 mg p.o. daily in view of renal failure Status post extensive fluid resuscitation, now HD with fluid removal Essential hypertension. Holding Norvasc, restart when appropriate = 08/08. Norvasc to start tomorrow as per nephrology. GI: Crohn's disease Renal diet. Protonix to IV-change to PO States she is scheduled to follow-up with [facility] gastroenterology in the end of August Currently on stress dose steroids, changed to home dose of prednisone 30 mg daily [employer]: Menorrhagia, patient reports is a chronic problem. Hasn't followed up with gynecology in over a year. Endometriosis Beta hCG is negative. Hemoglobin is stable, can follow-up as an outpatient with gynecology. FEN/RENAL: Acute on chronic kidney disease with anuria Chronic kidney disease stage III Started on CVVH 08/03/18 due to anuria and severe metabolic acidosis CVVH changed to hemodialysis 08/04/18 as the blood pressure improved. Urine output slowly improving Nephrology Dr. Arrieta. Currently patient has a right femoral Vas-Cath. Will discuss upper body dialysis catheter placement by IR probably after HD tomorrow , and when white count is further improved Patient states she has not had renal biopsy. She has been followed by nephrology at [facility]. Hypokalemia Potassium replacement = 08/08. Potassium 2.6. Replaced as per protocol. Nephrology following. Appreciate assistance. 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 She has undergone device removal on 2 prior occasions. Most recently was removed in February 2018 with wound VAC placement. Device replaced 06/27/18. She reported fever 102.7, however she is afebrile here. Continue renally dosed vancomycin, aztreonam, Flagyl 2D echo showed tricuspid valve endocarditis 1.7 x 0.5, however blood cultures 2 sets apparently remains negative Continue medical management. Leukocytosis improving = Leukocytosis continues improving. Continue IV antibiotics as per infectious disease. Appreciate assistance. RHEUM: Systemic lupus erythematosus On chronic steroids On chronic prednisone 30 mg p.o. daily for >2 years. In view of shock will place on hydrocortisone 100 mill grams IV every 8 hours. Hydrocortisone was reduced to 50 mg every 8 hours yesterday, restart prednisone 30 mg today and DC hydrocortisone Scheduled to follow-up with [facility] rheumatology end of August. = Blood pressure acceptable. Continue on 30 mg prednisone daily. HEME: Chronic anemia Thrombocytopenia most likely secondary to DIC/sepsis Transfuse blood and blood products as needed Transfuse 1 unit PRBC today with hemodialysis 08/06/2018 = Platelets 131. Improved. No signs of bleeding. Hemoglobin stable. ENDO: Hypothyroidism Continue Synthroid 112 mcg p.o. daily. Normal TSH. PROPH: SCDs for DVT prophylaxis. Hold pharmacologic DVT prophylaxis at this time due to recent invasive procedure, thrombocytopenia If consistently stays above 90, place on heparin subcu Protonix 40 mg daily for stress ulcer prophylaxis. ACCESS: New right IJ central line, right radial arterial line 08/03/18- DCd right femoral Vas-Cath placed 08/03/18-May need Permecath -defer to nephrology = 08/08. Nephrology planning to remove Vas-Cath tomorrow if does not require dialysis. Patient remains ill but steadily improving. Breathing comfortably remains off pressors last 48 hours. WBC count though elevated is trending down. We will consult hospitalist to assume care 08/08/2018 Discharge Planning: Continues treatment inpatient with IV antibiotics. We will need clearance from infectious disease, nephrology. PT following.
[2018-08-08] MEDS ORDERED: Vancomycin Consult Pharmacy OTHER PRN (19:06)
--- NOTE | 2018-08-08 19:10 | P.PNID ---
Subjective Remarks: doing well On NC O2 WBC keeps going down, 19K today all clx remain negative afebrile c/o pain abdomen on RA poliuric Antibiotics: azactam Allergies/Adverse Reactions: Allergies cephalexin Allergy (Severe, Verified 07/13/18 17:57) RASH,SWELLING Fish Containing Products Allergy (Severe, Verified 07/13/18 17:57) SWELLING IN THROAT, SOB ketorolac Allergy (Severe, Verified 07/13/18 17:57) RASH penicillin G Allergy (Severe, Verified 07/13/18 17:57) RASH,SWELLING prochlorperazine Allergy (Mild, Verified 07/13/18 17:57) DYSTONIC REACTION promethazine Allergy (Mild, Verified 07/13/18 17:57) DYSTONIC REACTION Objective Vital Signs 08/07/18 19:15 08/07/18 19:30 08/07/18 20:00 Temperature 98.8 F Pulse Rate 75 75 74 Respiratory Rate Blood Pressure 160/79 H 161/82 H 161/78 H Pulse Oximetry 93 L 95 95 08/07/18 20:30 08/07/18 20:44 08/07/18 21:00 Temperature Pulse Rate 75 79 Respiratory Rate Blood Pressure 162/79 H 158/76 H Pulse Oximetry 96 96 98 08/07/18 21:30 08/07/18 22:00 08/07/18 22:30 Temperature Pulse Rate 75 74 72 Respiratory Rate Blood Pressure 143/69 H 154/72 H 156/71 H Pulse Oximetry 96 96 94 L 08/07/18 23:00 08/07/18 23:30 08/08/18 00:00 Temperature 98.6 F Pulse Rate 74 74 75 Respiratory Rate Blood Pressure 159/74 H 164/77 H 160/75 H Pulse Oximetry 94 L 95 95 08/08/18 00:03 08/08/18 00:04 08/08/18 00:30 Temperature Pulse Rate 75 79 Respiratory Rate 18 Blood Pressure 160/76 H Pulse Oximetry 99 96 08/08/18 01:00 08/08/18 01:30 08/08/18 02:00 Temperature Pulse Rate 76 76 75 Respiratory Rate Blood Pressure 158/77 H 170/84 H 172/81 H Pulse Oximetry 96 97 97 08/08/18 02:30 08/08/18 03:00 08/08/18 03:30 Temperature Pulse Rate 78 77 77 Respiratory Rate Blood Pressure 160/74 H 183/86 H 187/99 H Pulse Oximetry 96 95 92 L 08/08/18 04:00 08/08/18 04:03 08/08/18 04:11 Temperature 98.1 F Pulse Rate 76 75 Respiratory Rate Blood Pressure 186/88 H 185/86 H Pulse Oximetry 95 95 96 08/08/18 06:00 08/08/18 06:29 08/08/18 07:53 Temperature Pulse Rate 76 72 Respiratory Rate 12 19 Blood Pressure Pulse Oximetry 96 08/08/18 08:00 08/08/18 10:00 08/08/18 12:00 Temperature 98.9 F 99 F Pulse Rate 71 67 67 Respiratory Rate 26 H 22 Blood Pressure 141/65 H 132/68 Pulse Oximetry 98 08/08/18 14:00 08/08/18 15:56 Temperature Pulse Rate 61 66 Respiratory Rate 17 Blood Pressure Pulse Oximetry Intake & Output 08/08/18 08/08/18 08/09/18 06:59 18:59 06:59 Intake Total 340 / 340 100 / 100 Output Total 4025 / 4025 Balance -3685 / -3685 100 / 100 Weight 86 kg Intake: IV 100 / 100 100 / 100 Azactam Inj 2 GM In NS Inj 100 100 / 100 100 / 100 ML @ 200 mls/hr IV.SIG Q8H [facility] Rx#:[id number] Oral 240 / 240 Other 0 / 0 Output: Urine 4025 / 4025 Hemodialysis Amount 0 / 0 Other: Date of Last Bowel Movement 08/07/18 08/08/18 # Bowel Movements 0 08/05/18 09:52 Blood - Peripheral Aerobic Blood Culture - Preliminary No growth in 3 days 08/05/18 09:52 Blood - Peripheral Anaerobic Blood Culture - Preliminary No growth in 3 days 08/05/18 10:00 Blood - Peripheral Aerobic Blood Culture - Preliminary No growth in 3 days 08/05/18 10:00 Blood - Peripheral Anaerobic Blood Culture - Preliminary No growth in 3 days 08/03/18 00:35 Blood - Peripheral Aerobic Blood Culture - Final No growth in 5 days 08/03/18 00:35 Blood - Peripheral Anaerobic Blood Culture - Final QNS - See aerobic report. 08/03/18 08:20 Blood - Peripheral Aerobic Blood Culture - Final No growth in 5 days 08/03/18 08:20 Blood - Peripheral Anaerobic Blood Culture - Final QNS - See aerobic report. 08/04/18 15:36 Clean Catch Urine Urine Culture - Final No growth in 48 hours Lab - Hematology Results 08/07/18 08/08/18 06:23 05:40 WBC 26.9 H 19.5 H RBC 2.75 L 3.21 L Hgb 7.9 L 9.2 L Hct 24.0 L 28.0 L MCV 87.3 87.3 MCH 28.9 28.6 MCHC 33.1 32.7 RDW 15.0 14.9 Plt Count 96 L 131 L D MPV 8.3 8.2 Prelim Diff (Auto) Slide review pending Neut % (Auto) 80.8 H Lymph % (Auto) 10.8 [place] % (Auto) 7.1 Eos % (Auto) 1.0 Baso % (Auto) 0.3 Neut # (Auto) 15.8 H Lymph # (Auto) 2.1 [place] # (Auto) 1.4 H Eos # (Auto) 0.2 Baso # (Auto) 0.1 WBC Differential Manual diff final Seg Neuts % (Manual) 76 H Band Neuts % (Manual) 3 Lymphocytes % (Manual) 12 Monocytes % (Manual) 5 Eosinophils % (Manual) 2 Myelocytes % (Man) 2 H Abs Neuts (Manual) 15.8 H Differential Comment . Platelet Estimate Low L Platelet Morphology Normal Polychromasia 2.2 H Basophilic Stippling Faint H Lab - Chemistry Results 08/07/18 08/07/18 08/07/18 00:03 06:04 06:23 Sodium 140 Potassium 2.9 L* D Chloride 99 Carbon Dioxide 31.6 Anion Gap 9 BUN 32 H Creatinine 2.79 H Estimated GFR 19 L POC Glucose 138 H 130 H Random Glucose 124 H Calcium 8.1 L D Phosphorus Magnesium Total Bilirubin 0.4 AST 61 H ALT 92 H Alkaline Phosphatase 93 Total Protein 6.4 Albumin 3.2 L 08/07/18 08/07/18 08/07/18 12:08 17:34 23:18 Sodium Potassium Chloride Carbon Dioxide Anion Gap BUN Creatinine Estimated GFR POC Glucose 176 H 182 H 129 H Random Glucose Calcium Phosphorus Magnesium Total Bilirubin AST ALT Alkaline Phosphatase Total Protein Albumin 08/08/18 08/08/18 08/08/18 05:40 05:49 16:50 Sodium 142 Potassium 2.6 L* Chloride 96 L Carbon Dioxide 35.2 H Anion Gap 11 BUN 40 H Creatinine 2.72 H Estimated GFR 19 L POC Glucose 107 109 Random Glucose 92 Calcium 8.0 L Phosphorus 2.1 L Magnesium 1.7 Total Bilirubin 0.5 AST 50 H ALT 87 H Alkaline Phosphatase 95 Total Protein 7.0 D Albumin 3.4 Imaging: ITS Impressions Chest X-Ray 08/08/18 06:00 CONCLUSION: 1. No significant interval change. 2. Stable bilateral lower lung zone airspace disease and likely trace pleural effusion. Physical Exam: GENERAL: NAD SKIN: Warm and dry. NO rash HEAD: Atraumatic. Normocephalic. EYES: Pupils equal and round. No scleral icterus. No injection or drainage. ENT: No nasal bleeding or discharge. Mucous membranes pink and moist. NECK: Trachea midline. No JVD. CARDIOVASCULAR: Regular rate and rhythm. + Murmur L sternal upper border L chest incision dry, clean RESPIRATORY: No accessory muscle use. Clear to auscultation. Breath sounds equal bilaterally. GASTROINTESTINAL: Abdomen soft, non-tender, nondistended. Hepatic and splenic margins not palpable. MUSCULOSKELETAL: Extremities without clubbing, cyanosis, or edema. No obvious deformities. NEUROLOGICAL: Awake and alert. No obvious cranial nerve deficits. Motor grossly within normal limits. Five out of 5 muscle strength in the arms and legs. Normal speech. 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 sp lead revision last clx from April Prote, prior to that MSSA, MRSA Pacer/AICD depended - removal of pacer not an option - jeanna Torres Pt is doing much better today PLAN: cont azactam, cont Vanco per levels - redosed on 08/05 fu bartonella, coxiella serologies
[2018-08-08] MEDS ORDERED: Vancomycin Inj 2,100 MG in Sodium Chlor 0.9% Inj 500 ML IV.SIG ONE (21:00)
[2018-08-08] MEDS ORDERED: Melatonin 5 MG Tablet PO PRN (22:33)
[2018-08-09] MEDS: Insulin NovoLOG Aspart Correctional Sugar Inj SQ SCH ×4 (00:32→18:18)
[2018-08-09] MEDS: Aztreonam Inj 2 GM in Sodium Chloride 0.9% Inj 100 ML IV.SIG SCH ×3 (01:13→16:27)
[2018-08-09] MEDS: Morphine Sulfate Inj 2 MG/ML Vial IV.PUSH PRN ×5 (01:44→20:19)
[2018-08-09] MEDS: Morphine Sulfate 15 MG IR Tablet PO PRN ×3 (03:31→18:37)
[2018-08-09 04:36] LABS: Baso % (Auto) 0.3 % (0.0-2.0); Eos # (Auto) 0.6 th/mm3 (0.0-0.4); Eos % (Auto) 4.3 % (0.0-4.0); Hematocrit 33.3 % (35.0-46.0); Lymph # (Auto) 1.8 th/mm3 (1.0-4.8); Lymph % (Auto) 13.1 % (9.0-44.0); Mean Corpuscular Hemoglobin 28.9 pg (27.0-34.0); Mean Corpuscular Volume 87.5 fL (80.0-100.0); Mean Platelet Volume 7.5 fL (7.0-11.0); Mono # (Auto) 1.2 th/mm3 (0.0-0.9); Mono % (Auto) 8.7 % (0.0-8.0); Neut # (Auto) 10.2 th/mm3 (1.8-7.7); Neut % (Auto) 73.6 % (16.0-70.0); Platelet Count 134 th/mm3 (150-450); Red Cell Distribution Width 14.5 % (11.6-17.2); White Blood Count 13.8 th/mm3 (4.0-11.0)
[2018-08-09 04:41] LABS: INR 1.2 Ratio; Prothrombin Time 11.9 sec (9.8-11.6)
[2018-08-09 04:54] LABS: Albumin 3.3 g/dL (3.4-5.0); Calcium 8.1 mg/dL (8.5-10.1); Carbon Dioxide 32.5 meq/L (21.0-32.0); Phosphorus 2.8 mg/dL (2.5-4.9)
[2018-08-09 04:59] LABS: Potassium 2.5 meq/L (3.5-5.1)
[2018-08-09 05:27] LABS: Platelet Morphology Normal (Normal)
[2018-08-09] MEDS: Potassium Chlor 20 mEq Premix 20 MEQ/100 ML PIGGYBACK IV.SIG SCH ×2 (05:48→14:40)
[2018-08-09] MEDS ORDERED: amLODIPine 10 MG Tablet PO SCH (09:00)
[2018-08-09] MEDS: Pantoprazole Inj 40 MG Vial IV.PUSH SCH (09:24)
[2018-08-09] MEDS: Levothyroxine 112 MCG Tablet PO SCH (09:25)
--- NOTE | 2018-08-09 09:34 | P.PNNP ---
Subjective Interval history: Sitting up in chair. Complaining of pain all over. Denies any shortness of breath. Creatinine continues to improve at 2.10 today. Hypokalemic at 2.5, replacement being given. <Cher Freeman - Last Filed: 08/09/18 09:29> Physical Exam Vital signs: Vital Signs 08/08/18 10:00 08/08/18 11:00 08/08/18 12:00 Temperature 99 F Pulse Rate 67 72 67 Respiratory Rate 22 Blood Pressure 130/69 132/76 132/68 Pulse Oximetry 98 98 98 08/08/18 13:00 08/08/18 14:00 08/08/18 15:00 Temperature Pulse Rate 71 61 65 Respiratory Rate Blood Pressure 133/71 126/71 135/73 Pulse Oximetry 98 97 98 08/08/18 15:56 08/08/18 16:00 08/08/18 17:00 Temperature 98.3 F Pulse Rate 66 64 79 Respiratory Rate 17 20 Blood Pressure 153/90 H Pulse Oximetry 100 99 08/08/18 17:01 08/08/18 18:00 08/08/18 19:00 Temperature Pulse Rate 72 70 71 Respiratory Rate Blood Pressure 135/71 149/77 H 135/75 Pulse Oximetry 100 95 97 08/08/18 19:27 08/08/18 20:00 08/08/18 21:00 Temperature 98.6 F Pulse Rate 73 74 Respiratory Rate 16 Blood Pressure 124/83 138/79 Pulse Oximetry 96 98 08/08/18 21:05 08/08/18 22:00 08/08/18 23:00 Temperature Pulse Rate 68 79 Respiratory Rate Blood Pressure 134/81 142/74 H Pulse Oximetry 96 95 98 08/09/18 00:00 08/09/18 01:00 08/09/18 02:00 Temperature 99.7 F H Pulse Rate 66 66 64 Respiratory Rate Blood Pressure 156/83 H 140/83 125/78 Pulse Oximetry 97 97 98 08/09/18 03:00 08/09/18 04:00 08/09/18 05:00 Temperature 99.3 F Pulse Rate 64 65 68 Respiratory Rate Blood Pressure 113/72 153/82 H 125/66 Pulse Oximetry 98 93 L 98 08/09/18 05:46 08/09/18 06:00 10/04/18 07:52 Temperature Pulse Rate 79 74 Respiratory Rate 16 19 Blood Pressure 134/86 Pulse Oximetry 97 94 L Intake & Output 08/08/18 08/09/18 08/09/18 18:59 06:59 18:59 Intake Total 460 / 460 1441 / 1441 Output Total 4200 / 4200 450 / 450 Balance -3740 / -3740 991 / 991 Intake: IV 100 / 100 721 / 721 Azactam Inj 2 GM In NS Inj 100 100 / 100 200 / 200 ML @ 200 mls/hr IV.SIG Q8H [facility] Rx#:[id number] Vancomycin Inj 2,100 MG In NS 521 / 521 Inj 500 ML @ 250 mls/hr IV.SIG ONCE ONE Rx#:[id number] Oral 360 / 360 720 / 720 Other 0 / 0 Output: Urine 4200 / 4200 450 / 450 Hemodialysis Amount 0 / 0 0 / 0 Other: Other Intake Source Saline Solution Date of Last Bowel Movement 08/08/18 08/08/18 # Bowel Movements 5 5 Narrative: GENERAL: Patient sitting up in chair. Alert and oriented x3. SKIN: Warm and dry. Vas cath right femoral. HEAD: Normocephalic. EYES: No scleral icterus. No injection or drainage. NECK: Supple, trachea midline. No JVD. CARDIOVASCULAR: Regular rate and rhythm without murmurs, gallops, or rubs. RESPIRATORY: Breath sounds equal bilaterally. No accessory muscle use. GASTROINTESTINAL: Abdomen soft, non-tender, nondistended. MUSCULOSKELETAL: No cyanosis, or edema. BACK: Nontender without obvious deformity. No CVA tenderness. - Urinary Catheter Management Indwelling Urethral Catheter Cath placed during this visit: yes, but has since been removed by the nurse Reason for continuing: Decision to DC catheter Removal date: 08/07/18 Removal time: 18:00 <Cher Freeman - Last Filed: 08/09/18 09:29> Vital signs: Vital Signs 08/16/18 11:39 08/16/18 12:00 08/16/18 16:00 Temperature 98.4 F 98.8 F Pulse Rate 84 67 72 Respiratory Rate 17 20 Blood Pressure 148/68 H 130/65 Pulse Oximetry 96 08/16/18 20:00 08/17/18 00:00 08/17/18 04:00 Temperature 98.2 F 98.2 F 98.4 F Pulse Rate 57 L 60 70 Respiratory Rate 18 18 18 Blood Pressure 122/63 103/58 L 130/64 Pulse Oximetry 99 97 98 08/17/18 08:00 Temperature 98.5 F Pulse Rate 57 L Respiratory Rate 17 Blood Pressure 147/63 H Pulse Oximetry 97 Intake & Output 08/16/18 08/17/18 08/17/18 18:59 06:59 18:59 Intake Total 680 / 680 200 / 200 100 / 100 Balance 680 / 680 200 / 200 100 / 100 Weight 78.2 kg Intake: IV 200 / 200 200 / 200 100 / 100 Azactam Inj 2 GM In NS Inj 100 200 / 200 200 / 200 100 / 100 ML @ 100 mls/hr IV.SIG Q6H [facility] Rx#:[id number] Oral 480 / 480 Other: # Voids 3 3 Date of Last Bowel Movement 08/16/18 - Urinary Catheter Management Indwelling Urethral Catheter Cath placed during this visit: no <Slim Arrieta - Last Filed: 08/17/18 11:31> Assessment and Plan - Assessment (1) Acute kidney injury superimposed on CKD Code(s): N17.9 - Acute kidney failure, unspecified; N18.9 - Chronic kidney disease, unspecified Status: Acute Plan: Acute kidney injury with history of chronic kidney disease Started on CRRT as patient on multiple pressors, anuric, and severe metabolic acidosis. Right femoral vas cath Creatinine at 2.55 ->3.43 ->2.97 ->4.39 ->2.79 ->2.72 ->2.10 Urinary output good Significant proteinuria, 24 hour urine for protein in process, will need kidney biopsy when stable Plan Avoid nephrotoxins and dye studies Hypokalemia, replacement given, add scheduled added. Will discontinue Lasix and add Aldactone daily Antibiotics per ID renal dose as appropriate Creatinine improving, will remove vas cath. Follow urinary output and BMP. Labs in AM (2) SLE (systemic lupus erythematosus) Code(s): M32.9 - Systemic lupus erythematosus, unspecified Status: Acute Plan: Check for Lupus activity. DNA DS normal On prednisone (3) Hypertension Code(s): I10 - Essential (primary) hypertension Status: Acute Plan: Better controlled, will monitor <Cher Freeman - Last Filed: 08/09/18 09:29> - Assessment (1) Acute kidney injury superimposed on CKD Code(s): N17.9 - Acute kidney failure, unspecified; N18.9 - Chronic kidney disease, unspecified Status: Acute Plan: Patient seen and examined, agree with above. Creatinine continue to improve. Vascath removed. Continue antibiotics as per ID. (2) SLE (systemic lupus erythematosus) Code(s): M32.9 - Systemic lupus erythematosus, unspecified Status: Acute (3) Hypertension Code(s): I10 - Essential (primary) hypertension Status: Acute (4) Endocarditis of tricuspid valve Code(s): I36.8 - Other nonrheumatic tricuspid valve disorders Status: Acute <Slim Arrieta - Last Filed: 08/17/18 11:31>
[2018-08-09] MEDS: predniSONE 10 MG Tablet PO SCH (09:35)
[2018-08-09] MEDS: Senna/Docusate Sodium 8.6/50 MG Tablet PO SCH ×2 (09:52→20:11)
[2018-08-09 16:17] LABS: Bartonella Henselae IgG <1:128 titer (<1:128); Bartonella Henselae IgM <1:20 titer (<1:20); Bartonella Quintana IgG <1:128 titer (<1:128); Bartonella Quintana IgM <1:20 titer (<1:20)
--- NOTE | 2018-08-09 16:34 | P.PNIM ---
Subjective Interval history: Says that pain continues all over she is asking for increased pain meds. She did not sleep well last night. She apparently refused the melatonin. Physical Exam Vital signs: Vital Signs 08/08/18 17:00 08/08/18 17:01 08/08/18 18:00 Temperature Pulse Rate 79 72 70 Respiratory Rate Blood Pressure 135/71 149/77 H Pulse Oximetry 99 100 95 08/08/18 19:00 08/08/18 19:27 08/08/18 20:00 Temperature 98.6 F Pulse Rate 71 73 Respiratory Rate 16 Blood Pressure 135/75 124/83 Pulse Oximetry 97 96 08/08/18 21:00 08/08/18 21:05 08/08/18 22:00 Temperature Pulse Rate 74 68 Respiratory Rate Blood Pressure 138/79 134/81 Pulse Oximetry 98 96 95 08/08/18 23:00 08/09/18 00:00 08/09/18 01:00 Temperature 99.7 F H Pulse Rate 79 66 66 Respiratory Rate Blood Pressure 142/74 H 156/83 H 140/83 Pulse Oximetry 98 97 97 08/09/18 02:00 08/09/18 03:00 08/09/18 04:00 Temperature 99.3 F Pulse Rate 64 64 65 Respiratory Rate Blood Pressure 125/78 113/72 153/82 H Pulse Oximetry 98 98 93 L 08/09/18 05:00 08/09/18 05:46 08/09/18 06:00 Temperature Pulse Rate 68 79 Respiratory Rate 16 Blood Pressure 125/66 134/86 Pulse Oximetry 98 97 08/09/18 07:00 08/09/18 07:52 08/09/18 08:00 Temperature Pulse Rate 73 74 71 Respiratory Rate 19 Blood Pressure 118/72 136/78 Pulse Oximetry 97 94 L 100 08/09/18 09:00 08/09/18 10:00 08/09/18 11:00 Temperature Pulse Rate 82 69 69 Respiratory Rate Blood Pressure 132/73 120/85 142/92 H Pulse Oximetry 90 L 98 98 08/09/18 12:00 08/09/18 13:00 08/09/18 14:00 Temperature Pulse Rate 69 70 59 L Respiratory Rate Blood Pressure 126/74 118/68 101/58 L Pulse Oximetry 97 96 94 L 08/09/18 15:00 Temperature Pulse Rate 64 Respiratory Rate Blood Pressure 104/66 Pulse Oximetry 94 L Intake & Output 08/08/18 08/09/18 08/09/18 18:59 06:59 18:59 Intake Total 460 / 460 1441 / 1441 200 / 200 Output Total 4200 / 4200 450 / 450 Balance -3740 / -3740 991 / 991 200 / 200 Intake: IV 100 / 100 721 / 721 200 / 200 Azactam Inj 2 GM In NS Inj 100 100 / 100 200 / 200 100 / 100 ML @ 200 mls/hr IV.SIG Q8H SHUKRI Rx#:[id number] KCl 20 mEq Premix Inj 20 meq In 100 / 100 100 ml @ 50 mls/hr IV.SIG Q2H SHUKRI Rx#:[id number] Vancomycin Inj 2,100 MG In NS 521 / 521 Inj 500 ML @ 250 mls/hr IV.SIG ONCE ONE Rx#:[id number] Oral 360 / 360 720 / 720 Other 0 / 0 Output: Urine 4200 / 4200 450 / 450 Hemodialysis Amount 0 / 0 0 / 0 Other: Other Intake Source Saline Solution Date of Last Bowel Movement 08/08/18 08/08/18 08/09/18 # Bowel Movements 5 5 Narrative: GENERAL: Patient sitting up in recliner. Appears comfortable. Alert and oriented x3. SKIN: Warm and dry. HEAD: Normocephalic. EYES: No scleral icterus. No injection or drainage. NECK: Supple, trachea midline. No JVD. CARDIOVASCULAR: Regular rate and rhythm without murmurs, gallops, or rubs. RESPIRATORY: Breath sounds equal bilaterally. No accessory muscle use. GASTROINTESTINAL: Abdomen soft, non-tender, nondistended. MUSCULOSKELETAL: No cyanosis, or edema. BACK: Nontender without obvious deformity. No CVA tenderness. - Urinary Catheter Management Indwelling Urethral Catheter Cath placed during this visit: yes, but has since been removed by the nurse Reason for continuing: Decision to DC catheter Removal date: 08/07/18 Removal time: 18:00 Results - Labs CBC & Chem 7: 08/09/18 02:56 08/09/18 02:56 Laboratory Results - last 24 hr 08/07/18 08/08/18 08/08/18 19:13 16:50 20:25 WBC RBC Hgb Hct MCV MCH MCHC RDW Plt Count MPV Prelim Diff (Auto) Neut % (Auto) Lymph % (Auto) [place] % (Auto) Eos % (Auto) Baso % (Auto) Neut # (Auto) Lymph # (Auto) [place] # (Auto) Eos # (Auto) Baso # (Auto) WBC Differential Diff Scan Differential Comment Platelet Estimate Platelet Morphology PT INR Sodium Potassium Chloride Carbon Dioxide Anion Gap BUN Creatinine Estimated GFR POC Glucose 109 Random Glucose Calcium Phosphorus Albumin Random Vancomycin 7.4 Bartonella henselae IgG <1:128 Bartonella henselae IgM <1:20 Bartonella patino IgG <1:128 Bartonella patino IgM <1:20 08/09/18 08/09/18 08/09/18 00:30 02:56 02:56 WBC 13.8 H RBC 3.80 L Hgb 11.0 L Hct 33.3 L MCV 87.5 MCH 28.9 MCHC 33.0 RDW 14.5 Plt Count 134 L MPV 7.5 Prelim Diff (Auto) Slide review pending Neut % (Auto) 73.6 H Lymph % (Auto) 13.1 [place] % (Auto) 8.7 H Eos % (Auto) 4.3 H Baso % (Auto) 0.3 Neut # (Auto) 10.2 H Lymph # (Auto) 1.8 [place] # (Auto) 1.2 H Eos # (Auto) 0.6 H Baso # (Auto) 0.0 WBC Differential . Diff Scan Auto diff confirmed Differential Comment . Platelet Estimate Low L Platelet Morphology Normal PT INR Sodium 139 Potassium 2.5 L* Chloride 97 L Carbon Dioxide 32.5 H Anion Gap 10 BUN 31 H Creatinine 2.10 H Estimated GFR 26 L POC Glucose 125 H Random Glucose 115 H Calcium 8.1 L Phosphorus 2.8 Albumin 3.3 L Random Vancomycin Bartonella henselae IgG Bartonella henselae IgM Bartonella patino IgG Bartonella patino IgM 08/09/18 08/09/18 08/09/18 02:56 05:39 11:52 WBC RBC Hgb Hct MCV MCH MCHC RDW Plt Count MPV Prelim Diff (Auto) Neut % (Auto) Lymph % (Auto) [place] % (Auto) Eos % (Auto) Baso % (Auto) Neut # (Auto) Lymph # (Auto) [place] # (Auto) Eos # (Auto) Baso # (Auto) WBC Differential Diff Scan Differential Comment Platelet Estimate Platelet Morphology PT 11.9 H INR 1.2 Sodium Potassium Chloride Carbon Dioxide Anion Gap BUN Creatinine Estimated GFR POC Glucose 123 H 100 Random Glucose Calcium Phosphorus Albumin Random Vancomycin Bartonella henselae IgG Bartonella henselae IgM Bartonella patino IgG Bartonella patino IgM Microbiology 08/05/18 09:52 Blood - Peripheral Aerobic Blood Culture - Preliminary No growth in 4 days 08/05/18 09:52 Blood - Peripheral Anaerobic Blood Culture - Preliminary No growth in 4 days 08/05/18 10:00 Blood - Peripheral Aerobic Blood Culture - Preliminary No growth in 4 days 08/05/18 10:00 Blood - Peripheral Anaerobic Blood Culture - Preliminary No growth in 4 days Assessment and Plan - Plan NEURO: Chronic pain Possible seizures Continue morphine 15 mg p.o. every 8 hours and as needed Valium 10 mg p.o. every 8 hours EEG only if recurrent seizures, Seizure-like activity noticed on 08/03/2018 most likely secondary to decreased perfusion RESP: Acute hypoxemic respiratory failure-improving Extubated 08/05/2018, tolerating well, DuoNeb q6 and PRN Broad spectrum ABX as below Intubated 08/03/2018 for probable seizure, altered mental status and severe cardiogenic shock PH at the time of intubation was 6.9, lactic acid was 15 Acidosis has resolved continue to wean FiO2 as tolerated Continue EzPAP, IS CV: Severe cardiogenic shock-resolved Symptomatic bradycardia with hypotension-resolved AICD malfunction/probable dislodged pacemaker lead, status post lead extraction and placement of new leads Severe lactic acidosis-resolved 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 2D echo shows tricuspid valve endocarditis, ID following-antibiotics as below CVVH started 08/03 due to severe acidosis, now transition to HD Prior ICD pocket infection in December 2017 and February 2018. Recently replaced by Dr. Cervantes. Per device rep she did not follow-up for scheduled outpatient interrogation following device placement. On admission, interrogation shows pacemaker intermittently capturing per [employer] rep. Holding spironolactone 25 mg p.o. daily in view of renal failure Status post extensive fluid resuscitation, now HD with fluid removal Essential hypertension. Holding Norvasc, restart when appropriate = 08/08. Norvasc to start tomorrow as per nephrology. = 08/09. Blood pressure a little low in the 100s systolic. Will decrease amlodipine to 5 mg daily. GI: Crohn's disease Renal diet. Protonix to IV-change to PO States she is scheduled to follow-up with [facility] gastroenterology in the end of August Currently on stress dose steroids, changed to home dose of prednisone 30 mg daily = We will decrease dose of prednisone to 20 mg daily. This is above physiologic dosing. [employer]: Menorrhagia, patient reports is a chronic problem. Hasn't followed up with gynecology in over a year. Endometriosis Beta hCG is negative. Hemoglobin is stable, can follow-up as an outpatient with gynecology. FEN/RENAL: Acute on chronic kidney disease with anuria Chronic kidney disease stage III Started on CVVH 08/03/18 due to anuria and severe metabolic acidosis CVVH changed to hemodialysis 08/04/18 as the blood pressure improved. Urine output slowly improving Nephrology Dr. Arrieta. Currently patient has a right femoral Vas-Cath. Will discuss upper body dialysis catheter placement by IR probably after HD tomorrow , and when white count is further improved Patient states she has not had renal biopsy. She has been followed by nephrology at [facility]. Hypokalemia Potassium replacement = 08/09. Potassium 2.5. Replaced as per protocol. Additional potassium ordered today. Nephrology following. Appreciate assistance. Follow-up tomorrow. 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 She has undergone device removal on 2 prior occasions. Most recently was removed in February 2018 with wound VAC placement. Device replaced 06/27/18. She reported fever 102.7, however she is afebrile here. Continue renally dosed vancomycin, aztreonam, Flagyl 2D echo showed tricuspid valve endocarditis 1.7 x 0.5, however blood cultures 2 sets apparently remains negative Continue medical management. Leukocytosis improving = 08/09 leukocytosis continues improving. 13.8. Continue IV antibiotics as per infectious disease. Appreciate assistance. RHEUM: Systemic lupus erythematosus On chronic steroids On chronic prednisone 30 mg p.o. daily for >2 years. In view of shock will place on hydrocortisone 100 mill grams IV every 8 hours. Hydrocortisone was reduced to 50 mg every 8 hours yesterday, restart prednisone 30 mg today and DC hydrocortisone Scheduled to follow-up with [facility] rheumatology end of August. = Blood pressure acceptable. Continue on 30 mg prednisone daily. HEME: Chronic anemia Thrombocytopenia most likely secondary to DIC/sepsis Transfuse blood and blood products as needed Transfuse 1 unit PRBC today with hemodialysis 08/06/2018 = Platelets 131. Improved. No signs of bleeding. Hemoglobin stable. ENDO: Hypothyroidism Continue Synthroid 112 mcg p.o. daily. Normal TSH. PROPH: SCDs for DVT prophylaxis. Hold pharmacologic DVT prophylaxis at this time due to recent invasive procedure, thrombocytopenia If consistently stays above 90, place on heparin subcu Protonix 40 mg daily for stress ulcer prophylaxis. ACCESS: New right IJ central line, right radial arterial line 08/03/18- DCd right femoral Vas-Cath placed 08/03/18-May need Permecath -defer to nephrology = 08/08. Nephrology planning to remove Vas-Cath tomorrow if does not require dialysis. = 08/09. Vas-Cath has been removed. Continue to monitor renal function. Appreciate nephrology assistance. Discharge Planning: Continues treatment inpatient with IV antibiotics. We will need clearance from infectious disease, nephrology. PT following.
[2018-08-09 19:31] LABS: Bacteria,Urine Rare /hpf; Bilirubin,Urine Negative (Negative); Clarity,Urine Clear (Clear); Color,Urine Yellow (Yellw/Straw); Glucose,Urine (UA) 50 mg/dL (Negative); Leukocyte Esterase,Urine Negative (Negative); Nitrite,Urine Negative (Negative); Specific Gravity,Urine 1.013 (1.002-1.035); Squamous Epithelial Cell,Urine 2 /hpf (0-5)
[2018-08-09 23:54] LABS: Q Fever Phase II IgM NEGATIVE (Negative)
[2018-08-10] MEDS: Aztreonam Inj 2 GM in Sodium Chloride 0.9% Inj 100 ML IV.SIG SCH ×3 (00:31→15:04)
[2018-08-10] MEDS: Insulin NovoLOG Aspart Correctional Sugar Inj SQ SCH ×4 (00:50→18:16)
[2018-08-10] MEDS: Morphine Sulfate 15 MG IR Tablet PO PRN ×3 (02:56→18:13)
[2018-08-10] MEDS: Morphine Sulfate Inj 2 MG/ML Vial IV.PUSH PRN ×3 (05:10→21:36)
[2018-08-10 07:21] LABS: Baso % (Auto) 0.2 % (0.0-2.0); Eos # (Auto) 0.2 th/mm3 (0.0-0.4); Hematocrit 35.7 % (35.0-46.0); Hemoglobin 11.7 gm/dL (11.6-15.3); Lymph # (Auto) 2.1 th/mm3 (1.0-4.8); Lymph % (Auto) 18.6 % (9.0-44.0); Mean Corpuscular HGB Conc 32.7 % (32.0-36.0); Mean Corpuscular Hemoglobin 28.4 pg (27.0-34.0); Mean Corpuscular Volume 86.9 fL (80.0-100.0); Mean Platelet Volume 7.3 fL (7.0-11.0); Mono # (Auto) 1.4 th/mm3 (0.0-0.9); Neut # (Auto) 7.6 th/mm3 (1.8-7.7); Neut % (Auto) 67.2 % (16.0-70.0); Platelet Count 129 th/mm3 (150-450); Red Cell Distribution Width 14.4 % (11.6-17.2); White Blood Count 11.3 th/mm3 (4.0-11.0)
[2018-08-10 08:03] LABS: Albumin 3.1 g/dL (3.4-5.0); Calcium 8.2 mg/dL (8.5-10.1); Carbon Dioxide 26.9 meq/L (21.0-32.0); Phosphorus 3.6 mg/dL (2.5-4.9); Potassium 3.1 meq/L (3.5-5.1); Vancomycin,Random 13.4 Comment
[2018-08-10 09:35] LABS: Eosinophils 4 % (0-4); Lymphocytes 22 % (9-44); Metamyelocytes 2 % (0-1); Monocytes 6 % (0-8); Ovalocytes 1+; Platelet Morphology Normal (Normal)
[2018-08-10] MEDS: predniSONE 20 MG Tablet PO SCH (09:54)
[2018-08-10] MEDS: Pantoprazole Inj 40 MG Vial IV.PUSH SCH (09:54)
[2018-08-10] MEDS: Levothyroxine 112 MCG Tablet PO SCH (09:54)
[2018-08-10] MEDS: Spironolactone 25 MG Tablet PO SCH (09:54)
[2018-08-10] MEDS: amLODIPine 5 MG Tablet PO SCH (09:55)
[2018-08-10] MEDS: Senna/Docusate Sodium 8.6/50 MG Tablet PO SCH ×2 (10:02→23:59)
--- NOTE | 2018-08-10 11:11 | P.PNNP ---
Subjective Interval history: Reports that she is not sleeping well and has pain all over. Creatinine continues to improve at 1.79 today. <Cher Freeman - Last Filed: 08/10/18 10:57> Physical Exam Vital signs: Vital Signs 08/09/18 11:00 08/09/18 12:00 08/09/18 13:00 Temperature Pulse Rate 69 69 70 Respiratory Rate Blood Pressure 142/92 H 126/74 118/68 Pulse Oximetry 98 97 96 08/09/18 14:00 08/09/18 15:00 08/09/18 16:00 Temperature 98.2 F Pulse Rate 59 L 64 101 H Respiratory Rate 23 Blood Pressure 101/58 L 104/66 152/72 H Pulse Oximetry 94 L 94 L 93 L 08/09/18 17:00 08/09/18 19:00 08/09/18 20:00 Temperature 98.9 F 99.4 F Pulse Rate 80 74 Respiratory Rate 20 15 Blood Pressure 141/65 H 126/83 123/77 Pulse Oximetry 99 98 08/10/18 00:00 08/10/18 00:20 08/10/18 04:00 Temperature 98.8 F 98.1 F Pulse Rate 76 70 84 Respiratory Rate 14 15 Blood Pressure 110/63 114/70 Pulse Oximetry 97 99 98 08/10/18 08:00 08/10/18 08:38 Temperature 98.6 F Pulse Rate 74 78 Respiratory Rate 20 18 Blood Pressure 110/74 Pulse Oximetry 99 98 Intake & Output 08/09/18 08/10/18 08/10/18 18:59 06:59 18:59 Intake Total 1050 / 1050 720 / 720 100 / 100 Output Total 1999 Balance -950 / -950 720 / 720 100 / 100 Weight 76.1 kg Intake: IV 300 / 300 100 / 100 100 / 100 Azactam Inj 2 GM In NS Inj 100 200 / 200 100 / 100 100 / 100 ML @ 200 mls/hr IV.SIG Q8H SHUKRI Rx#:[id number] KCl 20 mEq Premix Inj 20 meq In 100 / 100 100 ml @ 50 mls/hr IV.SIG Q2H SHUKRI Rx#:[id number] Oral 750 / 750 620 / 620 Output: Urine 1999 Other: # Voids 11 Date of Last Bowel Movement 08/09/18 08/09/18 # Bowel Movements 2 2 Narrative: GENERAL: Alert and oriented x3. Anxious SKIN: Warm and dry. HEAD: Normocephalic. EYES: No scleral icterus. No injection or drainage. NECK: Supple, trachea midline. No JVD. CARDIOVASCULAR: Regular rate and rhythm without murmurs, gallops, or rubs. RESPIRATORY: Breath sounds equal bilaterally. No accessory muscle use. GASTROINTESTINAL: Abdomen soft, non-tender, nondistended. MUSCULOSKELETAL: No cyanosis, or edema. BACK: Nontender without obvious deformity. No CVA tenderness. - Urinary Catheter Management Indwelling Urethral Catheter Cath placed during this visit: yes, but has since been removed by the nurse Reason for continuing: Decision to DC catheter Removal date: 08/07/18 Removal time: 18:00 <Cher Freeman - Last Filed: 08/10/18 10:57> Vital signs: Vital Signs 08/16/18 11:39 08/16/18 12:00 08/16/18 16:00 Temperature 98.4 F 98.8 F Pulse Rate 84 67 72 Respiratory Rate 17 20 Blood Pressure 148/68 H 130/65 Pulse Oximetry 96 08/16/18 20:00 08/17/18 00:00 08/17/18 04:00 Temperature 98.2 F 98.2 F 98.4 F Pulse Rate 57 L 60 70 Respiratory Rate 18 18 18 Blood Pressure 122/63 103/58 L 130/64 Pulse Oximetry 99 97 98 08/17/18 08:00 Temperature 98.5 F Pulse Rate 57 L Respiratory Rate 17 Blood Pressure 147/63 H Pulse Oximetry 97 Intake & Output 08/16/18 08/17/18 08/17/18 18:59 06:59 18:59 Intake Total 680 / 680 200 / 200 100 / 100 Balance 680 / 680 200 / 200 100 / 100 Weight 78.2 kg Intake: IV 200 / 200 200 / 200 100 / 100 Azactam Inj 2 GM In NS Inj 100 200 / 200 200 / 200 100 / 100 ML @ 100 mls/hr IV.SIG Q6H SHUKRI Rx#:[id number] Oral 480 / 480 Other: # Voids 3 3 Date of Last Bowel Movement 08/16/18 - Urinary Catheter Management Indwelling Urethral Catheter Cath placed during this visit: no <Slim Arrieta - Last Filed: 08/17/18 11:37> Assessment and Plan - Assessment (1) Acute kidney injury superimposed on CKD Code(s): N17.9 - Acute kidney failure, unspecified; N18.9 - Chronic kidney disease, unspecified Status: Acute Plan: Acute kidney injury with history of chronic kidney disease Initially started on CCRT 08/03, Then had hemodialysis on and with last hemodialysis on 08/06 Patient states she has not had renal biopsy. She has been followed by nephrology at [facility]. Creatinine at 2.55 ->3.43 ->2.97 ->4.39 ->2.79 ->2.72 ->2.10 ->1.79 Urinary output good 24 hour urine with 1.6 grams of protein. Complements normal, Anti DNA normal unlikely has active lupus Nephritis. Plan Avoid nephrotoxins and dye studies Hypokalemia at 3.1 on scheduled replacement will give extra dose today. Continue Aldactone daily Continue to hold lisinopril, can restart at later date. Antibiotics per ID renal dose as appropriate Follow urinary output and BMP. (2) SLE (systemic lupus erythematosus) Code(s): M32.9 - Systemic lupus erythematosus, unspecified Status: Acute Plan: Checked for Lupus activity. DNA DS normal On prednisone (3) Hypertension Code(s): I10 - Essential (primary) hypertension Status: Acute Plan: Better controlled, will monitor <Cher Freeman - Last Filed: 08/10/18 10:57> - Assessment (1) Acute kidney injury superimposed on CKD Code(s): N17.9 - Acute kidney failure, unspecified; N18.9 - Chronic kidney disease, unspecified Status: Acute Plan: Patient seen and examined, agree with above. Creatinine continue to improve. BP is stable, remain afebrile. Continue antibiotics as per ID. (2) SLE (systemic lupus erythematosus) Code(s): M32.9 - Systemic lupus erythematosus, unspecified Status: Acute (3) Hypertension Code(s): I10 - Essential (primary) hypertension Status: Acute (4) Endocarditis of tricuspid valve Code(s): I36.8 - Other nonrheumatic tricuspid valve disorders Status: Acute <Slim Arrieta - Last Filed: 08/17/18 11:37>
--- NOTE | 2018-08-10 12:59 | P.PNIM ---
Subjective Interval history: Patient says she continues to have poor sleep, however appears to be sleeping at the beginning of exam. Wakes up for exam. She denies any shortness of breath. Physical Exam Vital signs: Vital Signs 08/09/18 13:00 08/09/18 14:00 08/09/18 15:00 Temperature Pulse Rate 70 59 L 64 Respiratory Rate Blood Pressure 118/68 101/58 L 104/66 Pulse Oximetry 96 94 L 94 L 08/09/18 16:00 08/09/18 17:00 08/09/18 19:00 Temperature 98.2 F 98.9 F Pulse Rate 101 H 80 Respiratory Rate 23 20 Blood Pressure 152/72 H 141/65 H 126/83 Pulse Oximetry 93 L 99 08/09/18 20:00 08/10/18 00:00 08/10/18 00:20 Temperature 99.4 F 98.8 F Pulse Rate 74 76 70 Respiratory Rate 15 14 Blood Pressure 123/77 110/63 Pulse Oximetry 98 97 99 08/10/18 04:00 08/10/18 08:00 08/10/18 08:38 Temperature 98.1 F 98.6 F Pulse Rate 84 74 78 Respiratory Rate 15 20 18 Blood Pressure 114/70 110/74 Pulse Oximetry 98 99 98 Intake & Output 08/09/18 08/10/18 08/10/18 18:59 06:59 18:59 Intake Total 1050 / 1050 720 / 720 100 / 100 Output Total 1999 Balance -950 / -950 720 / 720 100 / 100 Weight 76.1 kg Intake: IV 300 / 300 100 / 100 100 / 100 Azactam Inj 2 GM In NS Inj 100 200 / 200 100 / 100 100 / 100 ML @ 200 mls/hr IV.SIG Q8H SHUKRI Rx#:[id number] KCl 20 mEq Premix Inj 20 meq In 100 / 100 100 ml @ 50 mls/hr IV.SIG Q2H SHUKRI Rx#:[id number] Oral 750 / 750 620 / 620 Output: Urine 1999 Other: # Voids 11 Date of Last Bowel Movement 08/09/18 08/09/18 # Bowel Movements 2 2 Narrative: GENERAL: Alert and oriented x3. Exam unchanged from yesterday with SKIN: Warm and dry. HEAD: Normocephalic. EYES: No scleral icterus. No injection or drainage. NECK: Supple, trachea midline. No JVD. CARDIOVASCULAR: Regular rate and rhythm without murmurs, gallops, or rubs. RESPIRATORY: Breath sounds equal bilaterally. No accessory muscle use. GASTROINTESTINAL: Abdomen soft, non-tender, nondistended. MUSCULOSKELETAL: No cyanosis, or edema. BACK: Nontender without obvious deformity. No CVA tenderness. - Urinary Catheter Management Indwelling Urethral Catheter Cath placed during this visit: yes, but has since been removed by the nurse Reason for continuing: Decision to DC catheter Removal date: 08/07/18 Removal time: 18:00 Results - Labs CBC & Chem 7: 08/10/18 06:16 08/10/18 06:16 Laboratory Results - last 24 hr 08/07/18 08/09/18 08/09/18 19:13 16:31 16:33 WBC RBC Hgb Hct MCV MCH MCHC RDW Plt Count MPV Prelim Diff (Auto) Neut % (Auto) Lymph % (Auto) [place] % (Auto) Eos % (Auto) Baso % (Auto) Neut # (Auto) Lymph # (Auto) [place] # (Auto) Eos # (Auto) Baso # (Auto) WBC Differential Seg Neuts % (Manual) Lymphocytes % (Manual) Monocytes % (Manual) Eosinophils % (Manual) Metamyelocytes % (Man) Abs Neuts (Manual) Differential Comment Platelet Estimate Platelet Morphology Ovalocytes Sodium Potassium Chloride Carbon Dioxide Anion Gap BUN Creatinine Estimated GFR POC Glucose 242 H 251 H Random Glucose Calcium Phosphorus Albumin Urine Color Urine Clarity Urine pH Ur Specific [place] Urine Protein Urine Glucose (UA) Urine Ketones Urine Occult Blood Urine Nitrate Urine Bilirubin Urine Urobilinogen Ur Leukocyte Esterase Urine RBC Urine WBC Ur Squamous Epith Cells Urine Bacteria Micro UA Comment Ur Microscopic Review Urine Culture Comments Random Vancomycin Complement C3 Complement C4 Bartonella henselae IgG <1:128 Bartonella henselae IgM <1:20 Bartonella patino IgG <1:128 Bartonella patino IgM <1:20 Q Fever Phase I IgG Ab Negative Q Fever Phase I IgM Ab Negative Q Fever Phase II IgG Ab Negative Q Fever Phase II IgM Ab Negative 08/09/18 08/09/18 08/09/18 17:45 18:06 19:49 WBC RBC Hgb Hct MCV MCH MCHC RDW Plt Count MPV Prelim Diff (Auto) Neut % (Auto) Lymph % (Auto) [place] % (Auto) Eos % (Auto) Baso % (Auto) Neut # (Auto) Lymph # (Auto) [place] # (Auto) Eos # (Auto) Baso # (Auto) WBC Differential Seg Neuts % (Manual) Lymphocytes % (Manual) Monocytes % (Manual) Eosinophils % (Manual) Metamyelocytes % (Man) Abs Neuts (Manual) Differential Comment Platelet Estimate Platelet Morphology Ovalocytes Sodium Potassium Chloride Carbon Dioxide Anion Gap BUN Creatinine Estimated GFR POC Glucose 170 H 156 H Random Glucose Calcium Phosphorus Albumin Urine Color Yellow Urine Clarity Clear Urine pH 7.0 Ur Specific [place] 1.013 Urine Protein 100 H Urine Glucose (UA) 50 Urine Ketones Negative Urine Occult Blood Small H Urine Nitrate Negative Urine Bilirubin Negative Urine Urobilinogen Less than 2 Ur Leukocyte Esterase Negative Urine RBC 1 Urine WBC 1 Ur Squamous Epith Cells 2 Urine Bacteria Rare H Micro UA Comment Culture not ind Ur Microscopic Review Not Reportable Urine Culture Comments Culture not ind Random Vancomycin Complement C3 Complement C4 Bartonella henselae IgG Bartonella henselae IgM Bartonella patino IgG Bartonella patino IgM Q Fever Phase I IgG Ab Q Fever Phase I IgM Ab Q Fever Phase II IgG Ab Q Fever Phase II IgM Ab 08/10/18 08/10/18 08/10/18 00:48 06:16 06:16 WBC 11.3 H RBC 4.10 Hgb 11.7 Hct 35.7 MCV 86.9 MCH 28.4 MCHC 32.7 RDW 14.4 Plt Count 129 L MPV 7.3 Prelim Diff (Auto) Slide review pending Neut % (Auto) 67.2 Lymph % (Auto) 18.6 [place] % (Auto) 12.0 H Eos % (Auto) 2.0 Baso % (Auto) 0.2 Neut # (Auto) 7.6 Lymph # (Auto) 2.1 [place] # (Auto) 1.4 H Eos # (Auto) 0.2 Baso # (Auto) 0.0 WBC Differential Manual diff final Seg Neuts % (Manual) 66 Lymphocytes % (Manual) 22 Monocytes % (Manual) 6 Eosinophils % (Manual) 4 Metamyelocytes % (Man) 2 H Abs Neuts (Manual) 7.7 Differential Comment . Platelet Estimate Low L Platelet Morphology Normal Ovalocytes 1+ H Sodium 143 Potassium 3.1 L Chloride 105 D Carbon Dioxide 26.9 Anion Gap 11 BUN 28 H Creatinine 1.79 H Estimated GFR 31 L POC Glucose 133 H Random Glucose 91 Calcium 8.2 L Phosphorus 3.6 Albumin 3.1 L Urine Color Urine Clarity Urine pH Ur Specific [place] Urine Protein Urine Glucose (UA) Urine Ketones Urine Occult Blood Urine Nitrate Urine Bilirubin Urine Urobilinogen Ur Leukocyte Esterase Urine RBC Urine WBC Ur Squamous Epith Cells Urine Bacteria Micro UA Comment Ur Microscopic Review Urine Culture Comments Random Vancomycin 13.4 Complement C3 98 Complement C4 22 Bartonella henselae IgG Bartonella henselae IgM Bartonella patino IgG Bartonella patino IgM Q Fever Phase I IgG Ab Q Fever Phase I IgM Ab Q Fever Phase II IgG Ab Q Fever Phase II IgM Ab 08/10/18 06:19 WBC RBC Hgb Hct MCV MCH MCHC RDW Plt Count MPV Prelim Diff (Auto) Neut % (Auto) Lymph % (Auto) [place] % (Auto) Eos % (Auto) Baso % (Auto) Neut # (Auto) Lymph # (Auto) [place] # (Auto) Eos # (Auto) Baso # (Auto) WBC Differential Seg Neuts % (Manual) Lymphocytes % (Manual) Monocytes % (Manual) Eosinophils % (Manual) Metamyelocytes % (Man) Abs Neuts (Manual) Differential Comment Platelet Estimate Platelet Morphology Ovalocytes Sodium Potassium Chloride Carbon Dioxide Anion Gap BUN Creatinine Estimated GFR POC Glucose 114 H Random Glucose Calcium Phosphorus Albumin Urine Color Urine Clarity Urine pH Ur Specific [place] Urine Protein Urine Glucose (UA) Urine Ketones Urine Occult Blood Urine Nitrate Urine Bilirubin Urine Urobilinogen Ur Leukocyte Esterase Urine RBC Urine WBC Ur Squamous Epith Cells Urine Bacteria Micro UA Comment Ur Microscopic Review Urine Culture Comments Random Vancomycin Complement C3 Complement C4 Bartonella henselae IgG Bartonella henselae IgM Bartonella patino IgG Bartonella patino IgM Q Fever Phase I IgG Ab Q Fever Phase I IgM Ab Q Fever Phase II IgG Ab Q Fever Phase II IgM Ab Microbiology 08/05/18 09:52 Blood - Peripheral Aerobic Blood Culture - Final No growth in 5 days 08/05/18 09:52 Blood - Peripheral Anaerobic Blood Culture - Final No growth in 5 days 08/05/18 10:00 Blood - Peripheral Aerobic Blood Culture - Final No growth in 5 days 08/05/18 10:00 Blood - Peripheral Anaerobic Blood Culture - Final No growth in 5 days Assessment and Plan - Plan NEURO: Chronic pain Possible seizures Continue morphine 15 mg p.o. every 8 hours and as needed Valium 10 mg p.o. every 8 hours EEG only if recurrent seizures, Seizure-like activity noticed on 08/03/2018 most likely secondary to decreased perfusion RESP: Acute hypoxemic respiratory failure-improving Extubated 08/05/2018, tolerating well, DuoNeb q6 and PRN Broad spectrum ABX as below Intubated 08/03/2018 for probable seizure, altered mental status and severe cardiogenic shock PH at the time of intubation was 6.9, lactic acid was 15 Acidosis has resolved continue to wean FiO2 as tolerated Continue EzPAP, IS CV: Severe cardiogenic shock-resolved Symptomatic bradycardia with hypotension-resolved AICD malfunction/probable dislodged pacemaker lead, status post lead extraction and placement of new leads Severe lactic acidosis-resolved 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 2D echo shows tricuspid valve endocarditis, ID following-antibiotics as below CVVH started 08/03 due to severe acidosis, now transition to HD Prior ICD pocket infection in December 2017 and February 2018. Recently replaced by Dr. Cervantes. Per device rep she did not follow-up for scheduled outpatient interrogation following device placement. On admission, interrogation shows pacemaker intermittently capturing per [employer] rep. Holding spironolactone 25 mg p.o. daily in view of renal failure Status post extensive fluid resuscitation, now HD with fluid removal Essential hypertension. Holding Norvasc, restart when appropriate = 08/08. Norvasc to start tomorrow as per nephrology. = 08/09. Blood pressure a little low in the 100s systolic. Will decrease amlodipine to 5 mg daily. = 08/10. Continue to monitor. Blood sugars acceptable. GI: Crohn's disease Renal diet. Protonix to IV-change to PO States she is scheduled to follow-up with [facility] gastroenterology in the end of August Currently on stress dose steroids, changed to home dose of prednisone 30 mg daily = We will decrease dose of prednisone to 20 mg daily. This is above physiologic dosing. = Continue prednisone 20 mg daily. Appears to be more relaxed at this dose. 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 [employer]: Menorrhagia, patient reports is a chronic problem. Hasn't followed up with gynecology in over a year. Endometriosis Beta hCG is negative. Hemoglobin is stable, can follow-up as an outpatient with gynecology. FEN/RENAL: Acute on chronic kidney disease with anuria Chronic kidney disease stage III Started on CVVH 08/03/18 due to anuria and severe metabolic acidosis CVVH changed to hemodialysis 08/04/18 as the blood pressure improved. Urine output slowly improving Nephrology Dr. Arrieta. Currently patient has a right femoral Vas-Cath. Will discuss upper body dialysis catheter placement by IR probably after HD tomorrow , and when white count is further improved Patient states she has not had renal biopsy. She has been followed by nephrology at [facility]. Hypokalemia Potassium replacement = 08/09. Potassium 2.5. Replaced as per protocol. Additional potassium ordered today. Nephrology following. Appreciate assistance. Follow-up tomorrow. = 08/10. Potassium 3.1. Continue daily replacement as per nephrology. Appreciate assistance. 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 She has undergone device removal on 2 prior occasions. Most recently was removed in February 2018 with wound VAC placement. Device replaced 06/27/18. She reported fever 102.7, however she is afebrile here. Continue renally dosed vancomycin, aztreonam, Flagyl 2D echo showed tricuspid valve endocarditis 1.7 x 0.5, however blood cultures 2 sets apparently remains negative Continue medical management. Leukocytosis improving = 08/09 leukocytosis continues improving. 13.8. Continue IV antibiotics as per infectious disease. Appreciate assistance. = 08/10. Leukocytosis improving 11.3. Continue broad-spectrum IV antibiotics as per infectious disease. RHEUM: Systemic lupus erythematosus On chronic steroids On chronic prednisone 30 mg p.o. daily for >2 years. In view of shock will place on hydrocortisone 100 mill grams IV every 8 hours. Hydrocortisone was reduced to 50 mg every 8 hours yesterday, restart prednisone 30 mg today and DC hydrocortisone Scheduled to follow-up with [facility] rheumatology end of August. = Blood pressure acceptable. Continue on 20 mg prednisone daily. HEME: Chronic anemia Thrombocytopenia most likely secondary to DIC/sepsis Transfuse blood and blood products as needed Transfuse 1 unit PRBC today with hemodialysis 08/06/2018 = Platelets 131. Improved. No signs of bleeding. Hemoglobin stable. ENDO: Hypothyroidism Continue Synthroid 112 mcg p.o. daily. Normal TSH. PROPH: SCDs for DVT prophylaxis. Hold pharmacologic DVT prophylaxis at this time due to recent invasive procedure, thrombocytopenia If consistently stays above 90, place on heparin subcu Protonix 40 mg daily for stress ulcer prophylaxis. ACCESS: New right IJ central line, right radial arterial line 08/03/18- DCd right femoral Vas-Cath placed 08/03/18-removed 08/09.-defer to nephrology Discharge Planning: Continues treatment inpatient with IV antibiotics for endocarditis. We will need clearance from infectious disease, nephrology. PT following.
[2018-08-10] MEDS ORDERED: Vancomycin Inj 2,000 MG in Sodium Chlor 0.9% Inj 500 ML IV.SIG ONE (18:00)
[2018-08-11] MEDS: Aztreonam Inj 2 GM in Sodium Chloride 0.9% Inj 100 ML IV.SIG SCH ×4 (00:24→23:40)
[2018-08-11] MEDS: Insulin NovoLOG Aspart Correctional Sugar Inj SQ SCH ×6 (00:36→23:43)
[2018-08-11] MEDS: Morphine Sulfate 15 MG IR Tablet PO PRN ×3 (02:21→20:35)
[2018-08-11] MEDS: Morphine Sulfate Inj 2 MG/ML Vial IV.PUSH PRN ×4 (06:56→23:40)
[2018-08-11 08:14] LABS: Baso % (Auto) 0.4 % (0.0-2.0); Eos % (Auto) 8.1 % (0.0-4.0); Hematocrit 33.3 % (35.0-46.0); Hemoglobin 10.7 gm/dL (11.6-15.3); Lymph % (Auto) 25.8 % (9.0-44.0); Mean Corpuscular HGB Conc 32.2 % (32.0-36.0); Mean Corpuscular Hemoglobin 28.3 pg (27.0-34.0); Mean Corpuscular Volume 87.8 fL (80.0-100.0); Mono # (Auto) 1.2 th/mm3 (0.0-0.9); Neut # (Auto) 6.6 th/mm3 (1.8-7.7); Neut % (Auto) 55.7 % (16.0-70.0); Platelet Count 138 th/mm3 (150-450); Red Blood Count 3.79 mil/mm3 (4.00-5.30); Red Cell Distribution Width 14.9 % (11.6-17.2); White Blood Count 11.8 th/mm3 (4.0-11.0)
[2018-08-11 08:36] LABS: Calcium 8.2 mg/dL (8.5-10.1); Carbon Dioxide 23.6 meq/L (21.0-32.0); Magnesium 1.8 mg/dL (1.5-2.5); Phosphorus 2.9 mg/dL (2.5-4.9); Potassium 3.2 meq/L (3.5-5.1)
[2018-08-11 09:01] LABS: Ovalocytes 1+; Platelet Morphology Normal (Normal)
[2018-08-11] MEDS: predniSONE 20 MG Tablet PO SCH (10:21)
[2018-08-11] MEDS: Levothyroxine 112 MCG Tablet PO SCH (10:21)
[2018-08-11] MEDS: Spironolactone 25 MG Tablet PO SCH (10:21)
[2018-08-11] MEDS: amLODIPine 5 MG Tablet PO SCH (10:21)
[2018-08-11] MEDS: Senna/Docusate Sodium 8.6/50 MG Tablet PO SCH ×2 (10:22→20:35)
--- NOTE | 2018-08-11 12:10 | P.PNNP ---
Subjective Interval history: Patient is tired states she is making urine Physical Exam Vital signs: Vital Signs 08/10/18 16:00 08/10/18 18:00 08/10/18 20:00 Temperature 98.7 F 99 F Pulse Rate 70 68 68 Respiratory Rate 20 15 Blood Pressure 113/67 102/65 Pulse Oximetry 94 L 97 08/11/18 00:00 08/11/18 04:00 08/11/18 07:40 Temperature 98.3 F 98.2 F Pulse Rate 72 80 76 Respiratory Rate 15 14 16 Blood Pressure 97/53 L 100/58 L Pulse Oximetry 96 98 96 Intake & Output 08/10/18 08/11/18 08/11/18 18:59 06:59 18:59 Intake Total 1160 / 1160 1080 / 1080 Balance 1160 / 1160 1080 / 1080 Weight 79.7 kg Intake: IV 200 / 200 620 / 620 Azactam Inj 2 GM In NS Inj 100 200 / 200 100 / 100 ML @ 200 mls/hr IV.SIG Q8H SHUKRI Rx#:[id number] Vancomycin Inj 2,000 MG In NS 520 / 520 Inj 500 ML @ 250 mls/hr IV.SIG ONCE ONE Rx#:[id number] Oral 960 / 960 460 / 460 Other: # Voids 6 4 Date of Last Bowel Movement 08/09/18 # Bowel Movements 3 1 Narrative: GENERAL: Alert and oriented x3. Exam unchanged from yesterday with SKIN: Warm and dry. HEAD: Normocephalic. EYES: No scleral icterus. No injection or drainage. NECK: Supple, trachea midline. No JVD. CARDIOVASCULAR: Regular rate and rhythm without murmurs, gallops, or rubs. RESPIRATORY: Breath sounds equal bilaterally. No accessory muscle use. GASTROINTESTINAL: Abdomen soft, non-tender, nondistended. MUSCULOSKELETAL: No cyanosis, or edema. BACK: Nontender without obvious deformity. No CVA tenderness. - Urinary Catheter Management Indwelling Urethral Catheter Cath placed during this visit: yes, but has since been removed by the nurse Reason for continuing: Decision to DC catheter Removal date: 08/07/18 Removal time: 18:00 Assessment and Plan - Assessment (1) Acute kidney injury superimposed on CKD Code(s): N17.9 - Acute kidney failure, unspecified; N18.9 - Chronic kidney disease, unspecified Status: Acute Plan: Acute kidney injury with history of chronic kidney disease Initially started on CCRT 08/03, Then had hemodialysis on and with last hemodialysis on 08/06 Patient states she has not had renal biopsy. She has been followed by nephrology at [facility]. Creatinine at 2.55 ->3.43 ->2.97 ->4.39 ->2.79 ->2.72 ->2.10 ->1.79->1.5 Urinary output good 24 hour urine with 1.6 grams of protein. Complements normal, Anti DNA normal unlikely has active lupus Nephritis. Plan Avoid nephrotoxins and dye studies Hypokalemia at 3.2 on scheduled replacement . Continue Aldactone daily Continue to hold lisinopril, can restart at later date. Antibiotics per ID renal dose as appropriate Follow urinary output and BMP. Dr. Arrieta will follow (2) SLE (systemic lupus erythematosus) Code(s): M32.9 - Systemic lupus erythematosus, unspecified Status: Acute Plan: Checked for Lupus activity. DNA DS normal On prednisone (3) Hypertension Code(s): I10 - Essential (primary) hypertension Status: Acute Plan: Better controlled, will monitor - Plan Check for Lupus activity. DNA DS normal
[2018-08-11] MEDS: Pantoprazole Inj 40 MG Vial IV.PUSH SCH (13:32)
--- NOTE | 2018-08-11 16:24 | P.PNIM ---
Subjective Interval history: Patient continues to report poor sleep. She appears more comfortable and calm than yesterday. Sleeping, wakes up for exam. Physical Exam Vital signs: Vital Signs 08/10/18 18:00 08/10/18 20:00 08/11/18 00:00 Temperature 99 F 98.3 F Pulse Rate 68 68 72 Respiratory Rate 15 15 Blood Pressure 102/65 97/53 L Pulse Oximetry 97 96 08/11/18 04:00 08/11/18 07:40 08/11/18 08:00 Temperature 98.2 F Pulse Rate 80 76 80 Respiratory Rate 14 16 Blood Pressure 100/58 L Pulse Oximetry 98 96 08/11/18 12:00 Temperature Pulse Rate 64 Respiratory Rate Blood Pressure Pulse Oximetry Intake & Output 08/10/18 08/11/18 08/11/18 18:59 06:59 18:59 Intake Total 1160 / 1160 1080 / 1080 Balance 1160 / 1160 1080 / 1080 Weight 79.7 kg Intake: IV 200 / 200 620 / 620 Azactam Inj 2 GM In NS Inj 100 200 / 200 100 / 100 ML @ 200 mls/hr IV.SIG Q8H SHUKRI Rx#:[id number] Vancomycin Inj 2,000 MG In NS 520 / 520 Inj 500 ML @ 250 mls/hr IV.SIG ONCE ONE Rx#:[id number] Oral 960 / 960 460 / 460 Other: # Voids 6 4 Date of Last Bowel Movement 08/09/18 # Bowel Movements 3 1 Narrative: GENERAL: Patient sitting in bed. Sleeping, wakes up for exam. Appears comfortable. SKIN: Warm and dry. HEAD: Normocephalic. EYES: No scleral icterus. No injection or drainage. NECK: Supple, trachea midline. No JVD. CARDIOVASCULAR: Regular rate and rhythm without murmurs, gallops, or rubs. RESPIRATORY: Breath sounds equal bilaterally. No accessory muscle use. GASTROINTESTINAL: Abdomen soft, non-tender, nondistended. MUSCULOSKELETAL: No cyanosis, or edema. BACK: Nontender without obvious deformity. No CVA tenderness. - Urinary Catheter Management Indwelling Urethral Catheter Cath placed during this visit: yes, but has since been removed by the nurse Reason for continuing: Decision to DC catheter Removal date: 08/07/18 Removal time: 18:00 Results - Labs CBC & Chem 7: 08/11/18 06:28 08/11/18 06:28 Laboratory Results - last 24 hr 08/11/18 08/11/18 06:28 06:28 WBC 11.8 H RBC 3.79 L Hgb 10.7 L Hct 33.3 L MCV 87.8 MCH 28.3 MCHC 32.2 RDW 14.9 Plt Count 138 L MPV 7.0 Prelim Diff (Auto) Slide review pending Neut % (Auto) 55.7 Lymph % (Auto) 25.8 [place] % (Auto) 10.0 H Eos % (Auto) 8.1 H Baso % (Auto) 0.4 Neut # (Auto) 6.6 Lymph # (Auto) 3.0 [place] # (Auto) 1.2 H Eos # (Auto) 1.0 H Baso # (Auto) 0.0 WBC Differential . Diff Scan Auto diff confirmed Differential Comment . Platelet Estimate Low L Platelet Morphology Normal Ovalocytes 1+ H Sodium 144 Potassium 3.2 L Chloride 110 H Carbon Dioxide 23.6 Anion Gap 10 BUN 24 H Creatinine 1.57 H Estimated GFR 36 L Random Glucose 84 Calcium 8.2 L Phosphorus 2.9 Magnesium 1.8 Albumin 3.0 L Assessment and Plan - Plan NEURO: Chronic pain Possible seizures Continue morphine 15 mg p.o. every 8 hours and as needed Valium 10 mg p.o. every 8 hours EEG only if recurrent seizures, Seizure-like activity noticed on 08/03/2018 most likely secondary to decreased perfusion RESP: Acute hypoxemic respiratory failure-improving Extubated 08/05/2018, tolerating well, DuoNeb q6 and PRN Broad spectrum ABX as below Intubated 08/03/2018 for probable seizure, altered mental status and severe cardiogenic shock PH at the time of intubation was 6.9, lactic acid was 15 Acidosis has resolved continue to wean FiO2 as tolerated Continue EzPAP, IS CV: Severe cardiogenic shock-resolved Symptomatic bradycardia with hypotension-resolved AICD malfunction/probable dislodged pacemaker lead, status post lead extraction and placement of new leads Severe lactic acidosis-resolved 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 2D echo shows tricuspid valve endocarditis, ID following-antibiotics as below CVVH started 08/03 due to severe acidosis, now transition to HD Prior ICD pocket infection in December 2017 and February 2018. Recently replaced by Dr. Cervantes. Per device rep she did not follow-up for scheduled outpatient interrogation following device placement. On admission, interrogation shows pacemaker intermittently capturing per [employer] rep. Holding spironolactone 25 mg p.o. daily in view of renal failure Status post extensive fluid resuscitation, now HD with fluid removal Essential hypertension. Holding Norvasc, restart when appropriate = 08/08. Norvasc to start tomorrow as per nephrology. = 08/09. Blood pressure a little low in the 100s systolic. Will decrease amlodipine to 5 mg daily. = 08/10. Continue to monitor. Blood sugars acceptable. GI: Crohn's disease Renal diet. Protonix to IV-change to PO States she is scheduled to follow-up with [facility] gastroenterology in the end of August Currently on stress dose steroids, changed to home dose of prednisone 30 mg daily = We will decrease dose of prednisone to 20 mg daily. This is above physiologic dosing. = Continue prednisone 20 mg daily. Appears to be more relaxed at this dose. 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 Hasn't followed up with gynecology in over a year. Endometriosis Beta hCG is negative. Hemoglobin is stable, can follow-up as an outpatient with gynecology. FEN/RENAL: Acute on chronic kidney disease with anuria Chronic kidney disease stage III Started on CVVH 08/03/18 due to anuria and severe metabolic acidosis CVVH changed to hemodialysis 08/04/18 as the blood pressure improved. Urine output slowly improving Nephrology Dr. Arrieta. Currently patient has a right femoral Vas-Cath. Will discuss upper body dialysis catheter placement by IR probably after HD tomorrow , and when white count is further improved Patient states she has not had renal biopsy. She has been followed by nephrology at [facility]. = Nephrology following. Appreciate assistance. Renal function improving slowly. Hypokalemia Potassium replacement = 08/09. Potassium 2.5. Replaced as per protocol. Additional potassium ordered today. Nephrology following. Appreciate assistance. Follow-up tomorrow. = 08/10. Potassium 3.1. Continue daily replacement as per nephrology. Appreciate assistance. = 10/6. Potassium 3.2. Replace and monitor. 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 She has undergone device removal on 2 prior occasions. Most recently was removed in February 2018 with wound VAC placement. Device replaced 06/27/18. She reported fever 102.7, however she is afebrile here. Continue renally dosed vancomycin, aztreonam, Flagyl 2D echo showed tricuspid valve endocarditis 1.7 x 0.5, however blood cultures 2 sets apparently remains negative Continue medical management. Leukocytosis improving = 08/09 leukocytosis continues improving. 13.8. Continue IV antibiotics as per infectious disease. Appreciate assistance. = 08/10. Leukocytosis improving 11.3. Continue broad-spectrum IV antibiotics as per infectious disease. RHEUM: Systemic lupus erythematosus On chronic steroids On chronic prednisone 30 mg p.o. daily for >2 years. In view of shock will place on hydrocortisone 100 mill grams IV every 8 hours. Hydrocortisone was reduced to 50 mg every 8 hours yesterday, restart prednisone 30 mg today and DC hydrocortisone Scheduled to follow-up with [facility] rheumatology end of August. = Blood pressure acceptable. Continue on 20 mg prednisone daily. HEME: Chronic anemia Thrombocytopenia most likely secondary to DIC/sepsis Transfuse blood and blood products as needed Transfuse 1 unit PRBC today with hemodialysis 08/06/2018 = Platelets 131. Improved. No signs of bleeding. Hemoglobin stable. ENDO: Hypothyroidism Continue Synthroid 112 mcg p.o. daily. Normal TSH. PROPH: SCDs for DVT prophylaxis. Hold pharmacologic DVT prophylaxis at this time due to recent invasive procedure, thrombocytopenia If consistently stays above 90, place on heparin subcu Protonix 40 mg daily for stress ulcer prophylaxis. ACCESS: New right IJ central line, right radial arterial line 08/03/18- DCd right femoral Vas-Cath placed 08/03/18-removed 08/09. Discharge Planning: Continues treatment inpatient with IV antibiotics for endocarditis. We will need clearance from infectious disease, nephrology. PT following.
[2018-08-12] MEDS: Morphine Sulfate Inj 2 MG/ML Vial IV.PUSH PRN ×4 (03:32→20:09)
[2018-08-12] MEDS: Insulin NovoLOG Aspart Correctional Sugar Inj SQ SCH ×3 (05:07→18:09)
[2018-08-12] MEDS: Morphine Sulfate 15 MG IR Tablet PO PRN ×3 (05:09→21:04)
[2018-08-12 06:35] LABS: Baso % (Auto) 0.3 % (0.0-2.0); Eos # (Auto) 0.3 th/mm3 (0.0-0.4); Hematocrit 30.1 % (35.0-46.0); Hemoglobin 10.3 gm/dL (11.6-15.3); Lymph # (Auto) 3.2 th/mm3 (1.0-4.8); Lymph % (Auto) 22.7 % (9.0-44.0); Mean Corpuscular HGB Conc 34.4 % (32.0-36.0); Mean Corpuscular Hemoglobin 29.7 pg (27.0-34.0); Mean Corpuscular Volume 86.2 fL (80.0-100.0); Mean Platelet Volume 7.1 fL (7.0-11.0); Mono # (Auto) 1.3 th/mm3 (0.0-0.9); Neut # (Auto) 9.3 th/mm3 (1.8-7.7); Platelet Count 132 th/mm3 (150-450); Red Blood Count 3.49 mil/mm3 (4.00-5.30); Red Cell Distribution Width 14.9 % (11.6-17.2)
[2018-08-12 06:54] LABS: Vancomycin,Random 11.3 Comment
[2018-08-12 06:59] LABS: Albumin 2.8 g/dL (3.4-5.0); Calcium 8.1 mg/dL (8.5-10.1); Carbon Dioxide 21.7 meq/L (21.0-32.0); Phosphorus 2.3 mg/dL (2.5-4.9); Potassium 3.2 meq/L (3.5-5.1)
[2018-08-12] MEDS: amLODIPine 5 MG Tablet PO SCH (09:10)
[2018-08-12] MEDS: predniSONE 20 MG Tablet PO SCH (09:10)
[2018-08-12] MEDS: Spironolactone 25 MG Tablet PO SCH (09:10)
[2018-08-12] MEDS: Levothyroxine 112 MCG Tablet PO SCH (09:11)
[2018-08-12] MEDS: Pantoprazole Inj 40 MG Vial IV.PUSH SCH (09:11)
[2018-08-12] MEDS: Senna/Docusate Sodium 8.6/50 MG Tablet PO SCH ×2 (09:11→20:08)
[2018-08-12] MEDS: Aztreonam Inj 2 GM in Sodium Chloride 0.9% Inj 100 ML IV.SIG SCH ×2 (09:11→15:38)
[2018-08-12] MEDS ORDERED: Vancomycin Inj 2,000 MG in Sodium Chlor 0.9% Inj 500 ML IV.SIG ONE (12:00)
--- NOTE | 2018-08-12 13:25 | P.PNIM ---
Subjective Interval history: She is sleeping, wakes of her exam. Says she is having horrible sleep. Reports pain is all over, stable from yesterday. Physical Exam Vital signs: Vital Signs 08/11/18 16:00 08/11/18 20:00 08/12/18 00:00 Temperature 98.9 F 99.5 F 99.9 F H Pulse Rate 79 76 96 H Respiratory Rate 20 18 18 Blood Pressure 109/72 133/69 144/86 H Pulse Oximetry 97 99 99 08/12/18 04:00 08/12/18 08:00 08/12/18 10:40 Temperature 99.4 F 98.3 F Pulse Rate 68 74 Respiratory Rate 18 20 Blood Pressure 140/72 130/92 H Pulse Oximetry 99 98 98 Intake & Output 08/11/18 08/12/18 08/12/18 18:59 06:59 18:59 Intake Total 820 / 820 100 / 100 100 / 100 Balance 820 / 820 100 / 100 100 / 100 Weight 79.2 kg Intake: IV 100 / 100 100 / 100 100 / 100 Azactam Inj 2 GM In NS Inj 100 100 / 100 100 / 100 100 / 100 ML @ 200 mls/hr IV.SIG Q8H SHUKRI Rx#:[id number] Oral 720 / 720 Other 0 / 0 Other: Other Intake Source Saline Solution # Voids 4 10 Date of Last Bowel Movement 08/11/18 # Bowel Movements 3 Narrative: GENERAL: Patient sitting in bed. Sleeping, wakes up for exam. Appears comfortable. Exam unchanged from yesterday. SKIN: Warm and dry. HEAD: Normocephalic. EYES: No scleral icterus. No injection or drainage. NECK: Supple, trachea midline. No JVD. CARDIOVASCULAR: Regular rate and rhythm without murmurs, gallops, or rubs. RESPIRATORY: Breath sounds equal bilaterally. No accessory muscle use. GASTROINTESTINAL: Abdomen soft, non-tender, nondistended. MUSCULOSKELETAL: No cyanosis, or edema. BACK: Nontender without obvious deformity. No CVA tenderness. - Urinary Catheter Management Indwelling Urethral Catheter Cath placed during this visit: yes, but has since been removed by the nurse Reason for continuing: Decision to DC catheter Removal date: 08/07/18 Removal time: 18:00 Results - Labs CBC & Chem 7: 08/12/18 06:00 08/12/18 06:00 Laboratory Results - last 24 hr 08/11/18 08/11/18 08/12/18 17:13 23:41 06:00 WBC RBC Hgb Hct MCV MCH MCHC RDW Plt Count MPV Neut % (Auto) Lymph % (Auto) [place] % (Auto) Eos % (Auto) Baso % (Auto) Neut # (Auto) Lymph # (Auto) [place] # (Auto) Eos # (Auto) Baso # (Auto) WBC Differential Differential Comment Sodium 143 Potassium 3.2 L Chloride 111 H Carbon Dioxide 21.7 Anion Gap 10 BUN 22 H Creatinine 1.47 H Estimated GFR 39 L POC Glucose 170 H 194 H Random Glucose 129 H Calcium 8.1 L Phosphorus 2.3 L Albumin 2.8 L Random Vancomycin 11.3 08/12/18 08/12/18 06:00 12:38 WBC 14.0 H RBC 3.49 L Hgb 10.3 L Hct 30.1 L MCV 86.2 MCH 29.7 MCHC 34.4 RDW 14.9 Plt Count 132 L MPV 7.1 Neut % (Auto) 66.0 Lymph % (Auto) 22.7 [place] % (Auto) 9.0 H Eos % (Auto) 2.0 Baso % (Auto) 0.3 Neut # (Auto) 9.3 H Lymph # (Auto) 3.2 [place] # (Auto) 1.3 H Eos # (Auto) 0.3 Baso # (Auto) 0.0 WBC Differential . Differential Comment Auto diff final Sodium Potassium Chloride Carbon Dioxide Anion Gap BUN Creatinine Estimated GFR POC Glucose 98 Random Glucose Calcium Phosphorus Albumin Random Vancomycin Assessment and Plan - Plan NEURO: Chronic pain Possible seizures Continue morphine 15 mg p.o. every 8 hours and as needed Valium 10 mg p.o. every 8 hours EEG only if recurrent seizures, Seizure-like activity noticed on 08/03/2018 most likely secondary to decreased perfusion RESP: Acute hypoxemic respiratory failure-improving Extubated 08/05/2018, tolerating well, DuoNeb q6 and PRN Broad spectrum ABX as below Intubated 08/03/2018 for probable seizure, altered mental status and severe cardiogenic shock PH at the time of intubation was 6.9, lactic acid was 15 Acidosis has resolved continue to wean FiO2 as tolerated Continue EzPAP, IS CV: Severe cardiogenic shock-resolved Symptomatic bradycardia with hypotension-resolved AICD malfunction/probable dislodged pacemaker lead, status post lead extraction and placement of new leads Severe lactic acidosis-resolved 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 2D echo shows tricuspid valve endocarditis, ID following-antibiotics as below CVVH started 08/03 due to severe acidosis, now transition to HD Prior ICD pocket infection in December 2017 and February 2018. Recently replaced by Dr. Cervantes. Per device rep she did not follow-up for scheduled outpatient interrogation following device placement. On admission, interrogation shows pacemaker intermittently capturing per [employer] rep. Holding spironolactone 25 mg p.o. daily in view of renal failure Status post extensive fluid resuscitation, now HD with fluid removal Essential hypertension. Holding Norvasc, restart when appropriate = 08/08. Norvasc to start tomorrow as per nephrology. = 08/09. Blood pressure a little low in the 100s systolic. Will decrease amlodipine to 5 mg daily. = 08/10. Continue to monitor. Blood sugars acceptable. = 08/12. Continue IV antibiotics as per infectious disease. Cultures negative at this time. GI: Crohn's disease Renal diet. Protonix to IV-change to PO States she is scheduled to follow-up with [facility] gastroenterology in the end of August Currently on stress dose steroids, changed to home dose of prednisone 30 mg daily = We will decrease dose of prednisone to 20 mg daily. This is above physiologic dosing. = Continue prednisone 20 mg daily. Appears to be more relaxed at this dose. 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 Hasn't followed up with gynecology in over a year. Endometriosis Beta hCG is negative. Hemoglobin is stable, can follow-up as an outpatient with gynecology. FEN/RENAL: Acute on chronic kidney disease with anuria Chronic kidney disease stage III Started on CVVH 08/03/18 due to anuria and severe metabolic acidosis CVVH changed to hemodialysis 08/04/18 as the blood pressure improved. Urine output slowly improving Nephrology Dr. Arrieta. Currently patient has a right femoral Vas-Cath. Will discuss upper body dialysis catheter placement by IR probably after HD tomorrow , and when white count is further improved Patient states she has not had renal biopsy. She has been followed by nephrology at [facility]. = Nephrology following. Appreciate assistance. Renal function improving slowly. Hypokalemia Potassium replacement = 08/09. Potassium 2.5. Replaced as per protocol. Additional potassium ordered today. Nephrology following. Appreciate assistance. Follow-up tomorrow. = 08/10. Potassium 3.1. Continue daily replacement as per nephrology. Appreciate assistance. = 08/11. Potassium 3.2. Replace and monitor. = 08/12. Potassium 3.2. Replace and monitor. 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 She has undergone device removal on 2 prior occasions. Most recently was removed in February 2018 with wound VAC placement. Device replaced 06/27/18. She reported fever 102.7, however she is afebrile here. Continue renally dosed vancomycin, aztreonam, Flagyl 2D echo showed tricuspid valve endocarditis 1.7 x 0.5, however blood cultures 2 sets apparently remains negative Continue medical management. Leukocytosis improving = 08/09 leukocytosis continues improving. 13.8. Continue IV antibiotics as per infectious disease. Appreciate assistance. = 08/10. Leukocytosis improving 11.3. Continue broad-spectrum IV antibiotics as per infectious disease. RHEUM: Systemic lupus erythematosus On chronic steroids On chronic prednisone 30 mg p.o. daily for >2 years. In view of shock will place on hydrocortisone 100 mill grams IV every 8 hours. Hydrocortisone was reduced to 50 mg every 8 hours yesterday, restart prednisone 30 mg today and DC hydrocortisone Scheduled to follow-up with [facility] rheumatology end of August. = Blood pressure acceptable. Continue on 20 mg prednisone daily. HEME: Chronic anemia Thrombocytopenia most likely secondary to DIC/sepsis Transfuse blood and blood products as needed Transfuse 1 unit PRBC today with hemodialysis 08/06/2018 = Platelets 131. Improved. No signs of bleeding. Hemoglobin stable. ENDO: Hypothyroidism Continue Synthroid 112 mcg p.o. daily. Normal TSH. //Insomnia Patient was not receiving as needed melatonin. Will make melatonin scheduled PROPH: SCDs for DVT prophylaxis. Hold pharmacologic DVT prophylaxis at this time due to recent invasive procedure, thrombocytopenia If consistently stays above 90, place on heparin subcu Protonix 40 mg daily for stress ulcer prophylaxis. ACCESS: New right IJ central line, right radial arterial line 08/03/18- DCd right femoral Vas-Cath placed 08/03/18-removed 08/09. Discharge Planning: Continues treatment inpatient with IV antibiotics for endocarditis. We will need clearance from infectious disease, nephrology. PT following.
--- NOTE | 2018-08-12 14:35 | P.PNNP ---
Subjective Interval history: Feels okay Physical Exam Vital signs: Vital Signs 08/11/18 16:00 08/11/18 20:00 08/12/18 00:00 Temperature 98.9 F 99.5 F 99.9 F H Pulse Rate 79 76 96 H Respiratory Rate 20 18 18 Blood Pressure 109/72 133/69 144/86 H Pulse Oximetry 97 99 99 08/12/18 04:00 08/12/18 08:00 08/12/18 10:40 Temperature 99.4 F 98.3 F Pulse Rate 68 74 Respiratory Rate 18 20 Blood Pressure 140/72 130/92 H Pulse Oximetry 99 98 98 08/12/18 12:00 Temperature 98.4 F Pulse Rate 62 Respiratory Rate 20 Blood Pressure 117/81 Pulse Oximetry 98 Intake & Output 08/11/18 08/12/18 08/12/18 18:59 06:59 18:59 Intake Total 820 / 820 100 / 100 100 / 100 Balance 820 / 820 100 / 100 100 / 100 Weight 79.2 kg Intake: IV 100 / 100 100 / 100 100 / 100 Azactam Inj 2 GM In NS Inj 100 100 / 100 100 / 100 100 / 100 ML @ 200 mls/hr IV.SIG Q8H SHUKRI Rx#:[id number] Oral 720 / 720 Other 0 / 0 Other: Other Intake Source Saline Solution # Voids 4 10 Date of Last Bowel Movement 08/11/18 # Bowel Movements 3 Narrative: GENERAL: Patient sitting in bed. Sleeping, wakes up for exam. Appears comfortable. Exam unchanged from yesterday. SKIN: Warm and dry. HEAD: Normocephalic. EYES: No scleral icterus. No injection or drainage. NECK: Supple, trachea midline. No JVD. CARDIOVASCULAR: Regular rate and rhythm without murmurs, gallops, or rubs. RESPIRATORY: Breath sounds equal bilaterally. No accessory muscle use. GASTROINTESTINAL: Abdomen soft, non-tender, nondistended. MUSCULOSKELETAL: No cyanosis, or edema. BACK: Nontender without obvious deformity. No CVA tenderness. - Urinary Catheter Management Indwelling Urethral Catheter Cath placed during this visit: yes, but has since been removed by the nurse Reason for continuing: Decision to DC catheter Removal date: 08/07/18 Removal time: 18:00 Assessment and Plan - Assessment (1) Acute kidney injury superimposed on CKD Code(s): N17.9 - Acute kidney failure, unspecified; N18.9 - Chronic kidney disease, unspecified Status: Acute Plan: Acute kidney injury with history of chronic kidney disease Initially started on CCRT 08/03, Then had hemodialysis on and with last hemodialysis on 08/06 Patient states she has not had renal biopsy. She has been followed by nephrology at [facility]. Creatinine at 2.55 ->3.43 ->2.97 ->4.39 ->2.79 ->2.72 ->2.10 ->1.79->1.5->1.4 . Urinary output good 24 hour urine with 1.6 grams of protein. Complements normal, Anti DNA normal unlikely has active lupus Nephritis. Plan Avoid nephrotoxins and dye studies Hypokalemia at 3.2 on scheduled replacement . Continue Aldactone daily Continue to hold lisinopril, can restart at later date. Antibiotics per ID renal dose as appropriate Follow urinary output and BMP. Dr. Arrieta will follow (2) SLE (systemic lupus erythematosus) Code(s): M32.9 - Systemic lupus erythematosus, unspecified Status: Acute Plan: Checked for Lupus activity. DNA DS normal On prednisone (3) Hypertension Code(s): I10 - Essential (primary) hypertension Status: Acute Plan: Better controlled, will monitor - Plan Check for Lupus activity. DNA DS normal
[2018-08-12] MEDS: Melatonin 5 MG Tablet PO SCH (20:08)
[2018-08-13] MEDS: Morphine Sulfate Inj 2 MG/ML Vial IV.PUSH PRN ×3 (00:18→16:59)
[2018-08-13] MEDS: Aztreonam Inj 2 GM in Sodium Chloride 0.9% Inj 100 ML IV.SIG SCH ×3 (00:22→16:22)
[2018-08-13] MEDS: Insulin NovoLOG Aspart Correctional Sugar Inj SQ SCH ×4 (00:32→17:30)
[2018-08-13] MEDS: Morphine Sulfate 15 MG IR Tablet PO PRN ×3 (05:03→21:35)
[2018-08-13 07:00] LABS: Baso # (Auto) 0.1 th/mm3 (0.0-0.2); Baso % (Auto) 0.4 % (0.0-2.0); Eos # (Auto) 0.5 th/mm3 (0.0-0.4); Eos % (Auto) 4.1 % (0.0-4.0); Hematocrit 33.4 % (35.0-46.0); Hemoglobin 11.2 gm/dL (11.6-15.3); Lymph # (Auto) 2.4 th/mm3 (1.0-4.8); Mean Corpuscular HGB Conc 33.6 % (32.0-36.0); Mean Corpuscular Hemoglobin 28.6 pg (27.0-34.0); Mean Corpuscular Volume 85.2 fL (80.0-100.0); Mean Platelet Volume 7.2 fL (7.0-11.0); Mono # (Auto) 0.8 th/mm3 (0.0-0.9); Mono % (Auto) 6.6 % (0.0-8.0); Neut # (Auto) 8.7 th/mm3 (1.8-7.7); Neut % (Auto) 69.9 % (16.0-70.0); Platelet Count 131 th/mm3 (150-450); Red Blood Count 3.92 mil/mm3 (4.00-5.30); Red Cell Distribution Width 15.6 % (11.6-17.2); White Blood Count 12.5 th/mm3 (4.0-11.0)
[2018-08-13 07:23] LABS: Calcium 8.7 mg/dL (8.5-10.1); Carbon Dioxide 23.1 meq/L (21.0-32.0); Phosphorus 2.9 mg/dL (2.5-4.9); Potassium 3.3 meq/L (3.5-5.1)
[2018-08-13 07:25] LABS: Vancomycin,Random 19.3 Comment
--- NOTE | 2018-08-13 10:26 | P.PNIM ---
Subjective Interval history: Patient reports poor sleep at night. Would like Ativan at night. We discussed keeping the window blinds open during the day Physical Exam Vital signs: Vital Signs 08/12/18 10:40 08/12/18 12:00 08/12/18 16:00 Temperature 98.4 F 98.2 F Pulse Rate 60 64 Respiratory Rate 20 20 Blood Pressure 117/81 134/90 Pulse Oximetry 98 98 100 08/12/18 20:00 08/12/18 20:03 08/12/18 23:58 Temperature 98.5 F Pulse Rate 80 82 64 Respiratory Rate 18 Blood Pressure 120/79 Pulse Oximetry 99 08/13/18 00:00 08/13/18 04:00 08/13/18 04:02 Temperature 98.4 F 98.1 F Pulse Rate 79 79 60 Respiratory Rate 18 18 Blood Pressure 130/80 130/80 Pulse Oximetry 100 99 08/13/18 08:00 Temperature 98.7 F Pulse Rate 77 Respiratory Rate 18 Blood Pressure 121/82 Pulse Oximetry 99 Intake & Output 08/12/18 08/13/18 08/13/18 18:59 06:59 18:59 Intake Total 1440 / 1440 100 / 100 Balance 1440 / 1440 100 / 100 Weight 78.9 kg Intake: IV 720 / 720 100 / 100 Azactam Inj 2 GM In NS Inj 100 200 / 200 100 / 100 ML @ 200 mls/hr IV.SIG Q8H [facility] Rx#:[id number] Vancomycin Inj 2,000 MG In NS 520 / 520 Inj 500 ML @ 250 mls/hr IV.SIG ONCE ONE Rx#:[id number] Oral 720 / 720 Other: # Voids 4 10 Date of Last Bowel Movement 08/12/18 # Bowel Movements 4 Narrative: GENERAL: Patient sleeping, wakes up for exam. alert SKIN: Warm and dry. HEAD: Normocephalic. EYES: No scleral icterus. No injection or drainage. NECK: Supple, trachea midline. No JVD. CARDIOVASCULAR: Regular rate and rhythm without murmurs, gallops, or rubs. RESPIRATORY: Breath sounds equal bilaterally. No accessory muscle use. GASTROINTESTINAL: Abdomen soft, non-tender, nondistended. MUSCULOSKELETAL: No cyanosis, or edema. BACK: Nontender without obvious deformity. No CVA tenderness. - Urinary Catheter Management Indwelling Urethral Catheter Cath placed during this visit: yes, but has since been removed by the nurse Reason for continuing: Decision to DC catheter Removal date: 08/07/18 Removal time: 18:00 Results - Labs CBC & Chem 7: 08/13/18 05:59 08/13/18 05:59 Laboratory Results - last 24 hr 08/12/18 08/12/18 08/13/18 12:38 17:47 05:06 WBC RBC Hgb Hct MCV MCH MCHC RDW Plt Count MPV Neut % (Auto) Lymph % (Auto) [place] % (Auto) Eos % (Auto) Baso % (Auto) Neut # (Auto) Lymph # (Auto) [place] # (Auto) Eos # (Auto) Baso # (Auto) WBC Differential Differential Comment Sodium Potassium Chloride Carbon Dioxide Anion Gap BUN Creatinine Estimated GFR POC Glucose 98 105 74 Random Glucose Calcium Phosphorus Albumin Random Vancomycin 08/13/18 08/13/18 05:59 05:59 WBC 12.5 H RBC 3.92 L Hgb 11.2 L Hct 33.4 L MCV 85.2 MCH 28.6 MCHC 33.6 RDW 15.6 Plt Count 131 L MPV 7.2 Neut % (Auto) 69.9 Lymph % (Auto) 19.0 [place] % (Auto) 6.6 Eos % (Auto) 4.1 H Baso % (Auto) 0.4 Neut # (Auto) 8.7 H Lymph # (Auto) 2.4 [place] # (Auto) 0.8 Eos # (Auto) 0.5 H Baso # (Auto) 0.1 WBC Differential . Differential Comment Auto diff final Sodium 146 H Potassium 3.3 L Chloride 111 H Carbon Dioxide 23.1 Anion Gap 12 BUN 16 Creatinine 1.14 H Estimated GFR 53 L POC Glucose Random Glucose 83 Calcium 8.7 Phosphorus 2.9 Albumin 3.0 L Random Vancomycin 19.3 Assessment and Plan - Plan NEURO: Chronic pain Possible seizures Continue morphine 15 mg p.o. every 8 hours and as needed Valium 10 mg p.o. every 8 hours EEG only if recurrent seizures, Seizure-like activity noticed on 08/03/2018 most likely secondary to decreased perfusion RESP: Acute hypoxemic respiratory failure-improving Extubated 08/05/2018, tolerating well, DuoNeb q6 and PRN Broad spectrum ABX as below Intubated 08/03/2018 for probable seizure, altered mental status and severe cardiogenic shock PH at the time of intubation was 6.9, lactic acid was 15 Acidosis has resolved continue to wean FiO2 as tolerated Continue EzPAP, IS CV: Severe cardiogenic shock-resolved Symptomatic bradycardia with hypotension-resolved AICD malfunction/probable dislodged pacemaker lead, status post lead extraction and placement of new leads Severe lactic acidosis-resolved 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 2D echo shows tricuspid valve endocarditis, ID following-antibiotics as below CVVH started 08/03 due to severe acidosis, now transition to HD Prior ICD pocket infection in December 2017 and February 2018. Recently replaced by Dr. Cervantes. Per device rep she did not follow-up for scheduled outpatient interrogation following device placement. On admission, interrogation shows pacemaker intermittently capturing per [employer] rep. Holding spironolactone 25 mg p.o. daily in view of renal failure Status post extensive fluid resuscitation, now HD with fluid removal Essential hypertension. Holding Norvasc, restart when appropriate = 08/08. Norvasc to start tomorrow as per nephrology. = 08/09. Blood pressure a little low in the 100s systolic. Will decrease amlodipine to 5 mg daily. = 08/10. Continue to monitor. Blood sugars acceptable. = 08/12. Continue IV antibiotics as per infectious disease. Cultures negative at this time. GI: Crohn's disease Renal diet. Protonix to IV-change to PO States she is scheduled to follow-up with [facility] gastroenterology in the end of August Currently on stress dose steroids, changed to home dose of prednisone 30 mg daily = We will decrease dose of prednisone to 20 mg daily. This is above physiologic dosing. = Continue prednisone 20 mg daily. Appears to be more relaxed at this dose. 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 Hasn't followed up with gynecology in over a year. Endometriosis Beta hCG is negative. Hemoglobin is stable, can follow-up as an outpatient with gynecology. FEN/RENAL: Acute on chronic kidney disease with anuria Chronic kidney disease stage III Started on CVVH 08/03/18 due to anuria and severe metabolic acidosis CVVH changed to hemodialysis 08/04/18 as the blood pressure improved. Urine output slowly improving Nephrology Dr. Arrieta. Currently patient has a right femoral Vas-Cath. Will discuss upper body dialysis catheter placement by IR probably after HD tomorrow , and when white count is further improved Patient states she has not had renal biopsy. She has been followed by nephrology at [facility]. = Nephrology following. Appreciate assistance. Renal function improving slowly. Hypokalemia Potassium replacement = 08/09. Potassium 2.5. Replaced as per protocol. Additional potassium ordered today. Nephrology following. Appreciate assistance. Follow-up tomorrow. = 08/10. Potassium 3.1. Continue daily replacement as per nephrology. Appreciate assistance. = 08/11. Potassium 3.2. Replace and monitor. = 08/12. Potassium 3.2. Replace and monitor. = 08/13. Potassium 3.3. Replace. 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 She has undergone device removal on 2 prior occasions. Most recently was removed in February 2018 with wound VAC placement. Device replaced 06/27/18. She reported fever 102.7, however she is afebrile here. Continue renally dosed vancomycin, aztreonam, Flagyl 2D echo showed tricuspid valve endocarditis 1.7 x 0.5, however blood cultures 2 sets apparently remains negative Continue medical management. Leukocytosis improving = 08/09 leukocytosis continues improving. 13.8. Continue IV antibiotics as per infectious disease. Appreciate assistance. = 08/10. Leukocytosis improving 11.3. Continue broad-spectrum IV antibiotics as per infectious disease. = 08/13. Leukocytosis of 12. Continue IV antibiotics as per infectious disease. Appreciate assistance. RHEUM: Systemic lupus erythematosus On chronic steroids On chronic prednisone 30 mg p.o. daily for >2 years. In view of shock will place on hydrocortisone 100 mill grams IV every 8 hours. Hydrocortisone was reduced to 50 mg every 8 hours yesterday, restart prednisone 30 mg today and DC hydrocortisone Scheduled to follow-up with [facility] rheumatology end of August. = Blood pressure acceptable. Continue on 20 mg prednisone daily. HEME: Chronic anemia Thrombocytopenia most likely secondary to DIC/sepsis Transfuse blood and blood products as needed Transfuse 1 unit PRBC today with hemodialysis 08/06/2018 = Platelets 131. Improved. No signs of bleeding. Hemoglobin stable. ENDO: Hypothyroidism Continue Synthroid 112 mcg p.o. daily. Normal TSH. //Insomnia Patient was not receiving as needed melatonin. Will make melatonin scheduled = 08/13. Patient still with poor sleep. Discussed sleep hygiene. Will add Ativan at night. PROPH: SCDs for DVT prophylaxis. Hold pharmacologic DVT prophylaxis at this time due to recent invasive procedure, thrombocytopenia If consistently stays above 90, place on heparin subcu Protonix 40 mg daily for stress ulcer prophylaxis. ACCESS: New right IJ central line, right radial arterial line 08/03/18- DCd right femoral Vas-Cath placed 08/03/18-removed 08/09. Discharge Planning: Continues treatment inpatient with IV antibiotics for endocarditis. We will need clearance from infectious disease, nephrology. PT following.
[2018-08-13] MEDS: predniSONE 20 MG Tablet PO SCH (10:45)
[2018-08-13] MEDS: Pantoprazole Inj 40 MG Vial IV.PUSH SCH (10:45)
[2018-08-13] MEDS: Senna/Docusate Sodium 8.6/50 MG Tablet PO SCH ×2 (10:46→21:34)
[2018-08-13] MEDS: Spironolactone 25 MG Tablet PO SCH (10:46)
[2018-08-13] MEDS: amLODIPine 5 MG Tablet PO SCH (10:46)
[2018-08-13] MEDS: Levothyroxine 112 MCG Tablet PO SCH (10:47)
--- NOTE | 2018-08-13 10:47 | P.PNNP ---
Subjective Interval history: Continues to report that she has not been sleeping and having all over pain. <Cher Freeman - Last Filed: 08/13/18 10:42> Physical Exam Vital signs: Vital Signs 08/12/18 12:00 08/12/18 16:00 08/12/18 20:00 Temperature 98.4 F 98.2 F 98.5 F Pulse Rate 60 64 80 Respiratory Rate 20 20 18 Blood Pressure 117/81 134/90 120/79 Pulse Oximetry 98 100 99 08/12/18 20:03 08/12/18 23:58 08/13/18 00:00 Temperature 98.4 F Pulse Rate 82 64 79 Respiratory Rate 18 Blood Pressure 130/80 Pulse Oximetry 100 08/13/18 04:00 08/13/18 04:02 08/13/18 08:00 Temperature 98.1 F 98.7 F Pulse Rate 79 60 77 Respiratory Rate 18 18 Blood Pressure 130/80 121/82 Pulse Oximetry 99 99 Intake & Output 08/12/18 08/13/18 08/13/18 18:59 06:59 18:59 Intake Total 1440 / 1440 100 / 100 Balance 1440 / 1440 100 / 100 Weight 78.9 kg Intake: IV 720 / 720 100 / 100 Azactam Inj 2 GM In NS Inj 100 200 / 200 100 / 100 ML @ 200 mls/hr IV.SIG Q8H [facility] Rx#:[id number] Vancomycin Inj 2,000 MG In NS 520 / 520 Inj 500 ML @ 250 mls/hr IV.SIG ONCE ONE Rx#:[id number] Oral 720 / 720 Other: # Voids 4 10 Date of Last Bowel Movement 08/12/18 # Bowel Movements 4 Narrative: GENERAL: Alert and oriented x3. Anxious SKIN: Warm and dry. Steri strips left chest wall HEAD: Normocephalic. EYES: No scleral icterus. No injection or drainage. NECK: Supple, trachea midline. No JVD. CARDIOVASCULAR: Regular rate and rhythm without murmurs, gallops, or rubs. RESPIRATORY: Breath sounds equal bilaterally. No accessory muscle use. GASTROINTESTINAL: Abdomen soft, non-tender, nondistended. MUSCULOSKELETAL: No cyanosis, or edema. BACK: Nontender without obvious deformity. No CVA tenderness. - Urinary Catheter Management Indwelling Urethral Catheter Cath placed during this visit: yes, but has since been removed by the nurse Reason for continuing: Decision to DC catheter Removal date: 08/07/18 Removal time: 18:00 <Cher Freeman - Last Filed: 08/13/18 10:42> Vital signs: Vital Signs 08/16/18 12:00 08/16/18 16:00 08/16/18 20:00 Temperature 98.8 F 98.2 F Pulse Rate 67 72 57 L Respiratory Rate 20 18 Blood Pressure 130/65 122/63 Pulse Oximetry 96 99 08/17/18 00:00 08/17/18 04:00 08/17/18 08:00 Temperature 98.2 F 98.4 F 98.5 F Pulse Rate 60 70 57 L Respiratory Rate 18 18 17 Blood Pressure 103/58 L 130/64 147/63 H Pulse Oximetry 97 98 97 Intake & Output 08/16/18 08/17/18 08/17/18 18:59 06:59 18:59 Intake Total 680 / 680 200 / 200 100 / 100 Balance 680 / 680 200 / 200 100 / 100 Weight 78.2 kg Intake: IV 200 / 200 200 / 200 100 / 100 Azactam Inj 2 GM In NS Inj 100 200 / 200 200 / 200 100 / 100 ML @ 100 mls/hr IV.SIG Q6H [facility] Rx#:[id number] Oral 480 / 480 Other: # Voids 3 3 Date of Last Bowel Movement 08/16/18 - Urinary Catheter Management Indwelling Urethral Catheter Cath placed during this visit: no <Slim Arrieta - Last Filed: 08/17/18 11:41> Assessment and Plan - Assessment (1) Acute kidney injury superimposed on CKD Code(s): N17.9 - Acute kidney failure, unspecified; N18.9 - Chronic kidney disease, unspecified Status: Acute Plan: Acute kidney injury with history of chronic kidney disease Initially started on CCRT 08/03, Then had hemodialysis on and with last hemodialysis on 08/06 Patient states she has not had renal biopsy. She has been followed by nephrology at [facility]. Creatinine at 2.55 ->3.43 ->2.97 ->4.39 ->2.79 ->2.72 ->2.10 ->1.79->1.5->1.4 -> 1.14 . Urinary output good 24 hour urine with 1.6 grams of protein. Complements normal, Anti DNA normal unlikely has active lupus Nephritis. Plan Avoid nephrotoxins and dye studies Hypokalemia at 3.1 on scheduled replacement, extra given today Continue Aldactone daily With proteinuria will restart low dose lisinopril Follow urinary output and BMP. (2) SLE (systemic lupus erythematosus) Code(s): M32.9 - Systemic lupus erythematosus, unspecified Status: Acute Plan: Checked for Lupus activity. DNA DS normal On prednisone (3) Hypertension Code(s): I10 - Essential (primary) hypertension Status: Acute Plan: Well controlled, will monitor <Cher Freeman - Last Filed: 08/13/18 10:42> - Assessment (1) Acute kidney injury superimposed on CKD Code(s): N17.9 - Acute kidney failure, unspecified; N18.9 - Chronic kidney disease, unspecified Status: Acute Plan: Patient seen and examined, agree with above. Has proteinuria of 1.6 gm, serology showing not as active lupus, Creatinine improving. Most likely has SHABANA due to Hypotension and ATN. (2) SLE (systemic lupus erythematosus) Code(s): M32.9 - Systemic lupus erythematosus, unspecified Status: Acute (3) Hypertension Code(s): I10 - Essential (primary) hypertension Status: Acute (4) Endocarditis of tricuspid valve Code(s): I36.8 - Other nonrheumatic tricuspid valve disorders Status: Acute <Slim Arrieta - Last Filed: 08/17/18 11:41>
[2018-08-13] MEDS: Melatonin 5 MG Tablet PO SCH (21:33)
[2018-08-13] MEDS: LORazepam 1 MG Tablet PO SCH (21:34)
[2018-08-14] MEDS: Aztreonam Inj 2 GM in Sodium Chloride 0.9% Inj 100 ML IV.SIG SCH ×5 (00:30→22:29)
[2018-08-14] MEDS: Morphine Sulfate Inj 2 MG/ML Vial IV.PUSH PRN ×3 (01:24→18:17)
[2018-08-14] MEDS: Insulin NovoLOG Aspart Correctional Sugar Inj SQ SCH ×4 (01:36→18:16)
[2018-08-14] MEDS: Morphine Sulfate 15 MG IR Tablet PO PRN ×3 (05:42→22:28)
[2018-08-14 06:13] LABS: Baso # (Auto) 0.1 th/mm3 (0.0-0.2); Baso % (Auto) 0.6 % (0.0-2.0); Eos # (Auto) 0.6 th/mm3 (0.0-0.4); Eos % (Auto) 3.2 % (0.0-4.0); Hematocrit 35.9 % (35.0-46.0); Hemoglobin 11.7 gm/dL (11.6-15.3); Lymph % (Auto) 16.9 % (9.0-44.0); Mean Corpuscular HGB Conc 32.5 % (32.0-36.0); Mean Corpuscular Hemoglobin 28.9 pg (27.0-34.0); Mean Corpuscular Volume 88.9 fL (80.0-100.0); Mean Platelet Volume 7.3 fL (7.0-11.0); Mono # (Auto) 1.2 th/mm3 (0.0-0.9); Mono % (Auto) 6.7 % (0.0-8.0); Neut % (Auto) 72.6 % (16.0-70.0); Platelet Count 147 th/mm3 (150-450); Red Blood Count 4.04 mil/mm3 (4.00-5.30); Red Cell Distribution Width 15.8 % (11.6-17.2); White Blood Count 17.9 th/mm3 (4.0-11.0)
[2018-08-14 06:15] LABS: Calcium 8.8 mg/dL (8.5-10.1); Carbon Dioxide 18.1 meq/L (21.0-32.0); Phosphorus 2.5 mg/dL (2.5-4.9); Potassium 3.8 meq/L (3.5-5.1)
[2018-08-14 06:16] LABS: Vancomycin,Random 7.1 Comment
[2018-08-14] MEDS: Lisinopril 5 MG Tablet PO SCH (09:34)
[2018-08-14] MEDS: Spironolactone 25 MG Tablet PO SCH (09:36)
[2018-08-14] MEDS: Levothyroxine 112 MCG Tablet PO SCH (09:36)
[2018-08-14] MEDS: amLODIPine 5 MG Tablet PO SCH (09:37)
[2018-08-14] MEDS: predniSONE 20 MG Tablet PO SCH (09:37)
[2018-08-14] MEDS: Pantoprazole Inj 40 MG Vial IV.PUSH SCH (09:37)
[2018-08-14] MEDS: Senna/Docusate Sodium 8.6/50 MG Tablet PO SCH ×2 (09:38→22:28)
--- NOTE | 2018-08-14 09:51 | P.PNNP ---
Subjective Interval history: Reports all over discomfort, insomnia, shortness of breath of exertion, chest discomfort at pacemaker site, and nausea. Creatinine is stable at 1.23. <Cher Freeman - Last Filed: 08/14/18 09:43> Physical Exam Vital signs: Vital Signs 08/13/18 12:00 08/13/18 16:00 08/13/18 17:30 Temperature 99.0 F 98.3 F Pulse Rate 61 62 Respiratory Rate 18 18 8 L Blood Pressure 126/79 120/77 Pulse Oximetry 99 99 08/13/18 20:00 08/14/18 00:00 08/14/18 04:00 Temperature 98.4 F 99.1 F 99.0 F Pulse Rate 76 54 L 65 Respiratory Rate 20 16 18 Blood Pressure 134/73 120/79 118/76 Pulse Oximetry 99 98 99 Intake & Output 08/13/18 08/14/18 08/14/18 18:59 06:59 18:59 Intake Total 800 / 800 340 / 340 Balance 800 / 800 340 / 340 Weight 77.4 kg Intake: IV 200 / 200 100 / 100 Azactam Inj 2 GM In NS Inj 100 200 / 200 100 / 100 ML @ 200 mls/hr IV.SIG Q8H [facility] Rx#:[id number] Oral 600 / 600 240 / 240 Other: # Voids 3 4 Date of Last Bowel Movement 08/13/18 # Bowel Movements 2 Narrative: GENERAL: Alert and oriented x3. Anxious SKIN: Warm and dry. Steri strips left chest wall HEAD: Normocephalic. EYES: No scleral icterus. No injection or drainage. NECK: Supple, trachea midline. No JVD. CARDIOVASCULAR: Regular rate and rhythm without murmurs, gallops, or rubs. RESPIRATORY: Breath sounds equal bilaterally. No accessory muscle use. GASTROINTESTINAL: Abdomen soft, non-tender, nondistended. MUSCULOSKELETAL: No cyanosis, or edema. BACK: Nontender without obvious deformity. No CVA tenderness. - Urinary Catheter Management Indwelling Urethral Catheter Cath placed during this visit: yes, but has since been removed by the nurse Reason for continuing: Decision to DC catheter Removal date: 08/07/18 Removal time: 18:00 <Cher Freeman - Last Filed: 08/14/18 09:43> Vital signs: Vital Signs 08/20/18 20:00 08/21/18 00:00 08/21/18 04:00 Temperature 99.2 F Pulse Rate 80 49 L 55 L Respiratory Rate 18 18 Blood Pressure 122/63 Pulse Oximetry 98 08/21/18 08:00 08/21/18 12:00 Temperature 98.5 F 98.4 F Pulse Rate 79 68 Respiratory Rate 18 20 Blood Pressure 108/54 L 104/53 L Pulse Oximetry 100 100 Intake & Output 08/20/18 08/21/18 08/21/18 18:59 06:59 18:59 Intake Total 1555 / 1555 1080 / 1080 715 / 715 Balance 1555 / 1555 1080 / 1080 715 / 715 Weight 78 kg Intake: IV 715 / 715 100 / 100 715 / 715 Azactam Inj 2 GM In NS Inj 100 200 / 200 100 / 100 200 / 200 ML @ 100 mls/hr IV.SIG Q6H [facility] Rx#:[id number] Vancomycin Inj 1,500 MG In NS 515 / 515 515 / 515 Inj 500 ML @ 250 mls/hr IV.SIG Q24H [facility] Rx#:[id number] Oral 840 / 840 980 / 980 Other: # Voids 6 5 Date of Last Bowel Movement 08/20/18 # Bowel Movements 0 - Urinary Catheter Management Indwelling Urethral Catheter Cath placed during this visit: no <Slim Arrieta - Last Filed: 08/21/18 17:08> Assessment and Plan - Assessment (1) Acute kidney injury superimposed on CKD Code(s): N17.9 - Acute kidney failure, unspecified; N18.9 - Chronic kidney disease, unspecified Status: Acute Plan: Acute kidney injury with history of chronic kidney disease Initially started on CCRT 08/03, Then had hemodialysis on and with last hemodialysis on 08/06 Patient states she has not had renal biopsy. She has been followed by nephrology at [facility]. Creatinine at stable at 1.23 Urinary output good 24 hour urine with 1.6 grams of protein. Complements normal, Anti DNA normal unlikely has active lupus Nephritis. Plan Possible kidney biopsy in future will wait until antibiotics are completed. Avoid nephrotoxins and dye studies Hypokalemia at 3.8 today HCO3 at 18.1 will add sodium bicarbonate if continues to drop. Continue Aldactone daily and lisinopril. Follow urinary output and BMP. (2) SLE (systemic lupus erythematosus) Code(s): M32.9 - Systemic lupus erythematosus, unspecified Status: Acute Plan: Checked for Lupus activity. DNA DS normal On prednisone (3) Hypertension Code(s): I10 - Essential (primary) hypertension Status: Acute Plan: Well controlled, will monitor - Plan l <Cher Freeman - Last Filed: 08/14/18 09:43> - Assessment (1) Acute kidney injury superimposed on CKD Code(s): N17.9 - Acute kidney failure, unspecified; N18.9 - Chronic kidney disease, unspecified Status: Acute Plan: Patient seen and examined, agree with above. Creatinine is stable, Continue antibiotics. (2) SLE (systemic lupus erythematosus) Code(s): M32.9 - Systemic lupus erythematosus, unspecified Status: Acute (3) Hypertension Code(s): I10 - Essential (primary) hypertension Status: Acute (4) Endocarditis of tricuspid valve Code(s): I36.8 - Other nonrheumatic tricuspid valve disorders Status: Acute <Slim Arrieta - Last Filed: 08/21/18 17:08>
[2018-08-14] MEDS ORDERED: Vancomycin Inj 2,000 MG in Sodium Chlor 0.9% Inj 500 ML IV.SIG ONE (12:00)
--- NOTE | 2018-08-14 15:22 | P.PNID ---
Subjective Remarks: co pain @ pacer site, incomnia WBC up to 17K afebrile c/o pain abdomen on RA Antibiotics: vanco azactam Allergies/Adverse Reactions: Allergies cephalexin Allergy (Severe, Verified 07/13/18 17:57) RASH,SWELLING Fish Containing Products Allergy (Severe, Verified 07/13/18 17:57) SWELLING IN THROAT, SOB ketorolac Allergy (Severe, Verified 07/13/18 17:57) RASH penicillin G Allergy (Severe, Verified 07/13/18 17:57) RASH,SWELLING prochlorperazine Allergy (Mild, Verified 07/13/18 17:57) DYSTONIC REACTION promethazine Allergy (Mild, Verified 07/13/18 17:57) DYSTONIC REACTION Objective Vital Signs 08/13/18 16:00 08/13/18 17:30 08/13/18 20:00 Temperature 98.3 F 98.4 F Pulse Rate 62 76 Respiratory Rate 18 8 L 20 Blood Pressure 120/77 134/73 Pulse Oximetry 99 99 08/14/18 00:00 08/14/18 04:00 08/14/18 08:00 Temperature 99.1 F 99.0 F 97.6 F Pulse Rate 54 L 65 88 Respiratory Rate 16 18 22 Blood Pressure 120/79 118/76 134/80 Pulse Oximetry 98 99 98 08/14/18 12:00 Temperature 97.8 F Pulse Rate 90 Respiratory Rate 23 Blood Pressure 136/82 Pulse Oximetry 98 Intake & Output 08/13/18 08/14/18 08/14/18 18:59 06:59 18:59 Intake Total 800 / 800 340 / 340 100 / 100 Balance 800 / 800 340 / 340 100 / 100 Weight 77.4 kg Intake: IV 200 / 200 100 / 100 100 / 100 Azactam Inj 2 GM In NS Inj 100 200 / 200 100 / 100 100 / 100 ML @ 200 mls/hr IV.SIG Q8H [facility] Rx#:[id number] Oral 600 / 600 240 / 240 Other: # Voids 3 4 Date of Last Bowel Movement 08/13/18 # Bowel Movements 2 Lab - Hematology Results 08/13/18 08/14/18 05:59 05:32 WBC 12.5 H 17.9 H RBC 3.92 L 4.04 Hgb 11.2 L 11.7 Hct 33.4 L 35.9 MCV 85.2 88.9 D MCH 28.6 28.9 MCHC 33.6 32.5 RDW 15.6 15.8 Plt Count 131 L 147 L MPV 7.2 7.3 Neut % (Auto) 69.9 72.6 H Lymph % (Auto) 19.0 16.9 [place] % (Auto) 6.6 6.7 Eos % (Auto) 4.1 H 3.2 Baso % (Auto) 0.4 0.6 Neut # (Auto) 8.7 H 13.0 H Lymph # (Auto) 2.4 3.0 [place] # (Auto) 0.8 1.2 H Eos # (Auto) 0.5 H 0.6 H Baso # (Auto) 0.1 0.1 WBC Differential . . Differential Comment Auto diff final Auto diff final Lab - Chemistry Results 08/12/18 08/13/18 08/13/18 17:47 05:06 05:59 Sodium 146 H Potassium 3.3 L Chloride 111 H Carbon Dioxide 23.1 Anion Gap 12 BUN 16 Creatinine 1.14 H Estimated GFR 53 L POC Glucose 105 74 Random Glucose 83 Calcium 8.7 Phosphorus 2.9 Albumin 3.0 L 08/13/18 08/14/18 08/14/18 12:49 05:32 07:54 Sodium 145 Potassium 3.8 Chloride 115 H Carbon Dioxide 18.1 L Anion Gap 12 BUN 16 Creatinine 1.23 H Estimated GFR 48 L POC Glucose 90 112 H Random Glucose 105 Calcium 8.8 Phosphorus 2.5 Albumin 3.0 L 08/14/18 12:46 Sodium Potassium Chloride Carbon Dioxide Anion Gap BUN Creatinine Estimated GFR POC Glucose 128 H Random Glucose Calcium Phosphorus Albumin Imaging: ITS Impressions Chest X-Ray 08/08/18 06:00 CONCLUSION: 1. No significant interval change. 2. Stable bilateral lower lung zone airspace disease and likely trace pleural effusion. Physical Exam: GENERAL: NAD SKIN: Warm and dry. NO rash HEAD: Atraumatic. Normocephalic. EYES: Pupils equal and round. No scleral icterus. No injection or drainage. ENT: No nasal bleeding or discharge. Mucous membranes pink and moist. NECK: Trachea midline. No JVD. CARDIOVASCULAR: Regular rate and rhythm. + Murmur L sternal upper border L chest incision dry, clean but very tender RESPIRATORY: No accessory muscle use. Clear to auscultation. Breath sounds equal bilaterally. GASTROINTESTINAL: Abdomen soft, mildly tender, nondistended. Hepatic and splenic margins not palpable. MUSCULOSKELETAL: Extremities without clubbing, cyanosis, or edema. No obvious deformities. NEUROLOGICAL: Awake and alert. No obvious cranial nerve deficits. Motor grossly within normal limits. Five out of 5 muscle strength in the arms and legs. Normal speech. 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 negative bartonella, coxiella serologies sp lead revision last clx from April Proteus, prior to that MSSA, MRSA Pacer/AICD depended - removal of pacer not an option - dw Dr Torres Pt is doing much better today PLAN: cont azactam, cont Vanco will Rx x 6 weeks fu WBC
--- NOTE | 2018-08-14 19:21 | P.PNIM ---
Subjective Interval history: patient says she is feeling a little better today. Denies any shortness of breath. Chronic pain all over as before. Physical Exam Vital signs: Vital Signs 08/13/18 20:00 08/14/18 00:00 08/14/18 04:00 Temperature 98.4 F 99.1 F 99.0 F Pulse Rate 76 54 L 65 Respiratory Rate 20 16 18 Blood Pressure 134/73 120/79 118/76 Pulse Oximetry 99 98 99 08/14/18 08:00 08/14/18 12:00 08/14/18 16:00 Temperature 97.6 F 97.8 F 98.5 F Pulse Rate 88 90 57 L Respiratory Rate 22 23 23 Blood Pressure 134/80 136/82 105/52 L Pulse Oximetry 98 98 99 Intake & Output 08/14/18 08/14/18 08/15/18 06:59 18:59 06:59 Intake Total 340 / 340 1160 / 1160 100 / 100 Balance 340 / 340 1160 / 1160 100 / 100 Weight 77.4 kg Intake: IV 100 / 100 200 / 200 100 / 100 Azactam Inj 2 GM In NS Inj 100 100 / 100 200 / 200 100 / 100 ML @ 200 mls/hr IV.SIG Q8H SHUKRI Rx#:[id number] Oral 240 / 240 960 / 960 Other: # Voids 4 4 Narrative: GENERAL: Alert and oriented x3. appears comfortable. SKIN: Warm and dry. Steri strips left chest wall HEAD: Normocephalic. EYES: No scleral icterus. No injection or drainage. NECK: Supple, trachea midline. No JVD. CARDIOVASCULAR: Regular rate and rhythm without murmurs, gallops, or rubs. RESPIRATORY: Breath sounds equal bilaterally. No accessory muscle use. GASTROINTESTINAL: Abdomen soft, non-tender, nondistended. MUSCULOSKELETAL: No cyanosis, or edema. BACK: Nontender without obvious deformity. No CVA tenderness. - Urinary Catheter Management Indwelling Urethral Catheter Cath placed during this visit: yes, but has since been removed by the nurse Reason for continuing: Decision to DC catheter Removal date: 08/07/18 Removal time: 18:00 Results - Labs CBC & Chem 7: 08/14/18 05:32 08/14/18 05:32 Laboratory Results - last 24 hr 08/14/18 08/14/18 08/14/18 05:32 05:32 07:54 WBC 17.9 H RBC 4.04 Hgb 11.7 Hct 35.9 MCV 88.9 D MCH 28.9 MCHC 32.5 RDW 15.8 Plt Count 147 L MPV 7.3 Neut % (Auto) 72.6 H Lymph % (Auto) 16.9 Glynn % (Auto) 6.7 Eos % (Auto) 3.2 Baso % (Auto) 0.6 Neut # (Auto) 13.0 H Lymph # (Auto) 3.0 Glynn # (Auto) 1.2 H Eos # (Auto) 0.6 H Baso # (Auto) 0.1 WBC Differential . Differential Comment Auto diff final Sodium 145 Potassium 3.8 Chloride 115 H Carbon Dioxide 18.1 L Anion Gap 12 BUN 16 Creatinine 1.23 H Estimated GFR 48 L POC Glucose 112 H Random Glucose 105 Calcium 8.8 Phosphorus 2.5 Albumin 3.0 L Random Vancomycin 7.1 08/14/18 12:46 WBC RBC Hgb Hct MCV MCH MCHC RDW Plt Count MPV Neut % (Auto) Lymph % (Auto) Glynn % (Auto) Eos % (Auto) Baso % (Auto) Neut # (Auto) Lymph # (Auto) Glynn # (Auto) Eos # (Auto) Baso # (Auto) WBC Differential Differential Comment Sodium Potassium Chloride Carbon Dioxide Anion Gap BUN Creatinine Estimated GFR POC Glucose 128 H Random Glucose Calcium Phosphorus Albumin Random Vancomycin Assessment and Plan - Plan NEURO: Chronic pain Possible seizures Continue morphine 15 mg p.o. every 8 hours and as needed Valium 10 mg p.o. every 8 hours EEG only if recurrent seizures, Seizure-like activity noticed on 08/03/2018 most likely secondary to decreased perfusion RESP: Acute hypoxemic respiratory failure-improving Extubated 08/05/2018, tolerating well, DuoNeb q6 and PRN Broad spectrum ABX as below Intubated 08/03/2018 for probable seizure, altered mental status and severe cardiogenic shock PH at the time of intubation was 6.9, lactic acid was 15 Acidosis has resolved continue to wean FiO2 as tolerated Continue EzPAP, IS CV: Severe cardiogenic shock-resolved Symptomatic bradycardia with hypotension-resolved AICD malfunction/probable dislodged pacemaker lead, status post lead extraction and placement of new leads Severe lactic acidosis-resolved 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 2D echo shows tricuspid valve endocarditis, ID following-antibiotics as below CVVH started 08/03 due to severe acidosis, now transition to HD Prior ICD pocket infection in December 2017 and February 2018. Recently replaced by Dr. Cervantes. Per device rep she did not follow-up for scheduled outpatient interrogation following device placement. On admission, interrogation shows pacemaker intermittently capturing per [employer] rep. Holding spironolactone 25 mg p.o. daily in view of renal failure Status post extensive fluid resuscitation, now HD with fluid removal Essential hypertension. Holding Norvasc, restart when appropriate = 08/08. Norvasc to start tomorrow as per nephrology. = 08/09. Blood pressure a little low in the 100s systolic. Will decrease amlodipine to 5 mg daily. = 08/10. Continue to monitor. Blood sugars acceptable. = 08/12. Continue IV antibiotics as per infectious disease. Cultures negative at this time. GI: Crohn's disease Renal diet. Protonix to IV-change to PO States she is scheduled to follow-up with [facility] gastroenterology in the end of August Currently on stress dose steroids, changed to home dose of prednisone 30 mg daily = We will decrease dose of prednisone to 20 mg daily. This is above physiologic dosing. = Continue prednisone 20 mg daily. Appears to be more relaxed at this dose. 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 [employer]: Menorrhagia, patient reports is a chronic problem. Hasn't followed up with gynecology in over a year. Endometriosis Beta hCG is negative. Hemoglobin is stable, can follow-up as an outpatient with gynecology. FEN/RENAL: Acute on chronic kidney disease with anuria Chronic kidney disease stage III Started on CVVH 08/03/18 due to anuria and severe metabolic acidosis CVVH changed to hemodialysis 08/04/18 as the blood pressure improved. Urine output slowly improving Nephrology Dr. Arrieta. Currently patient has a right femoral Vas-Cath. Will discuss upper body dialysis catheter placement by IR probably after HD tomorrow , and when white count is further improved Patient states she has not had renal biopsy. She has been followed by nephrology at [facility]. = Nephrology following. Appreciate assistance. Renal function improving slowly. Hypokalemia Potassium replacement = 08/09. Potassium 2.5. Replaced as per protocol. Additional potassium ordered today. Nephrology following. Appreciate assistance. Follow-up tomorrow. = 08/10. Potassium 3.1. Continue daily replacement as per nephrology. Appreciate assistance. = 08/11. Potassium 3.2. Replace and monitor. = 08/12. Potassium 3.2. Replace and monitor. = 08/13. Potassium 3.3. Replace. 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 She has undergone device removal on 2 prior occasions. Most recently was removed in February 2018 with wound VAC placement. Device replaced 06/27/18. She reported fever 102.7, however she is afebrile here. Continue renally dosed vancomycin, aztreonam, Flagyl 2D echo showed tricuspid valve endocarditis 1.7 x 0.5, however blood cultures 2 sets apparently remains negative Continue medical management. Leukocytosis improving = 08/09 leukocytosis continues improving. 13.8. Continue IV antibiotics as per infectious disease. Appreciate assistance. = 08/10. Leukocytosis improving 11.3. Continue broad-spectrum IV antibiotics as per infectious disease. = 08/13. Leukocytosis of 12. Continue IV antibiotics as per infectious disease. Appreciate assistance. =08/14. Discussed infectious disease. Continue IV antibiotics. RHEUM: Systemic lupus erythematosus On chronic steroids On chronic prednisone 30 mg p.o. daily for >2 years. In view of shock will place on hydrocortisone 100 mill grams IV every 8 hours. Hydrocortisone was reduced to 50 mg every 8 hours yesterday, restart prednisone 30 mg today and DC hydrocortisone Scheduled to follow-up with [facility] rheumatology end of August. = Blood pressure acceptable. Continue on 20 mg prednisone daily. HEME: Chronic anemia Thrombocytopenia most likely secondary to DIC/sepsis Transfuse blood and blood products as needed Transfuse 1 unit PRBC today with hemodialysis 08/06/2018 = Platelets 131. Improved. No signs of bleeding. Hemoglobin stable. ENDO: Hypothyroidism Continue Synthroid 112 mcg p.o. daily. Normal TSH. //Insomnia Patient was not receiving as needed melatonin. Will make melatonin scheduled = 08/13. Patient still with poor sleep. Discussed sleep hygiene. Will add Ativan at night. =08/14. Sleep improved. Continue to monitor. PROPH: SCDs for DVT prophylaxis. Hold pharmacologic DVT prophylaxis at this time due to recent invasive procedure, thrombocytopenia If consistently stays above 90, place on heparin subcu Protonix 40 mg daily for stress ulcer prophylaxis. ACCESS: New right IJ central line, right radial arterial line 08/03/18- DCd right femoral Vas-Cath placed 08/03/18-removed 08/09. Discharge Planning: Continues treatment inpatient with IV antibiotics for endocarditis. We will need clearance from infectious disease, nephrology. PT following.
[2018-08-14] MEDS: Melatonin 5 MG Tablet PO SCH (22:28)
[2018-08-14] MEDS: LORazepam 1 MG Tablet PO SCH (22:28)
[2018-08-15] MEDS: Morphine Sulfate Inj 2 MG/ML Vial IV.PUSH PRN ×3 (02:29→18:36)
[2018-08-15] MEDS: Aztreonam Inj 2 GM in Sodium Chloride 0.9% Inj 100 ML IV.SIG SCH ×4 (03:09→21:55)
[2018-08-15] MEDS: Morphine Sulfate 15 MG IR Tablet PO PRN ×3 (06:39→23:13)
[2018-08-15 07:53] LABS: Baso # (Auto) 0.1 th/mm3 (0.0-0.2); Baso % (Auto) 0.7 % (0.0-2.0); Eos # (Auto) 0.2 th/mm3 (0.0-0.4); Eos % (Auto) 1.1 % (0.0-4.0); Hematocrit 30.8 % (35.0-46.0); Hemoglobin 10.3 gm/dL (11.6-15.3); Lymph % (Auto) 16.6 % (9.0-44.0); Mean Corpuscular HGB Conc 33.5 % (32.0-36.0); Mean Corpuscular Hemoglobin 29.5 pg (27.0-34.0); Mean Corpuscular Volume 88.1 fL (80.0-100.0); Mean Platelet Volume 7.8 fL (7.0-11.0); Mono # (Auto) 1.1 th/mm3 (0.0-0.9); Mono % (Auto) 5.8 % (0.0-8.0); Neut # (Auto) 13.9 th/mm3 (1.8-7.7); Neut % (Auto) 75.8 % (16.0-70.0); Platelet Count 152 th/mm3 (150-450); Red Cell Distribution Width 15.9 % (11.6-17.2); White Blood Count 18.3 th/mm3 (4.0-11.0)
[2018-08-15 08:08] LABS: Albumin 2.8 g/dL (3.4-5.0); Calcium 8.5 mg/dL (8.5-10.1); Phosphorus 3.7 mg/dL (2.5-4.9); Potassium 4.6 meq/L (3.5-5.1)
[2018-08-15] MEDS: Pantoprazole Inj 40 MG Vial IV.PUSH SCH (08:43)
[2018-08-15] MEDS: Spironolactone 25 MG Tablet PO SCH (08:44)
[2018-08-15] MEDS: Levothyroxine 112 MCG Tablet PO SCH (08:44)
[2018-08-15] MEDS: predniSONE 20 MG Tablet PO SCH (08:44)
[2018-08-15] MEDS: amLODIPine 5 MG Tablet PO SCH (08:45)
[2018-08-15] MEDS: Lisinopril 5 MG Tablet PO SCH (08:45)
[2018-08-15] MEDS: Senna/Docusate Sodium 8.6/50 MG Tablet PO SCH ×2 (08:45→21:48)
--- NOTE | 2018-08-15 10:20 | P.PNNP ---
Subjective Interval history: Continues to report pain all over, chest discomfort over pacemaker sit. Creatinine stable at 1.24. <Cher Freeman - Last Filed: 08/15/18 10:11> Physical Exam Vital signs: Vital Signs 08/14/18 12:00 08/14/18 16:00 08/14/18 20:00 Temperature 97.8 F 98.5 F 98.1 F Pulse Rate 81 60 88 Respiratory Rate 23 23 20 Blood Pressure 136/82 105/52 L 104/64 Pulse Oximetry 98 99 98 08/15/18 00:00 08/15/18 02:31 08/15/18 04:00 Temperature 98.4 F 98.3 F Pulse Rate 73 61 Respiratory Rate 18 18 18 Blood Pressure 112/69 106/64 Pulse Oximetry 98 97 Intake & Output 08/14/18 08/15/18 08/15/18 18:59 06:59 18:59 Intake Total 1180 / 1180 655 / 655 Balance 1180 / 1180 655 / 655 Weight 77.2 kg Intake: IV 220 / 220 175 / 175 Azactam Inj 2 GM In NS Inj 100 200 / 200 175 / 175 ML @ 100 mls/hr IV.SIG Q6H SHUKRI Rx#:[id number] Vancomycin Inj 2,000 MG In NS 20 / 20 Inj 500 ML @ 250 mls/hr IV.SIG ONCE ONE Rx#:[id number] Oral 960 / 960 480 / 480 Other: # Voids 4 7 Date of Last Bowel Movement 08/13/18 08/15/18 # Bowel Movements 5 Narrative: GENERAL: Alert and oriented x3. NAD SKIN: Warm and dry. Steri strips left chest wall HEAD: Normocephalic. EYES: No scleral icterus. No injection or drainage. NECK: Supple, trachea midline. No JVD. CARDIOVASCULAR: Regular rate and rhythm without murmurs, gallops, or rubs. RESPIRATORY: Breath sounds equal bilaterally. No accessory muscle use. GASTROINTESTINAL: Abdomen soft, non-tender, nondistended. MUSCULOSKELETAL: No cyanosis, or edema. BACK: Nontender without obvious deformity. No CVA tenderness. - Urinary Catheter Management Indwelling Urethral Catheter Cath placed during this visit: yes, but has since been removed by the nurse Reason for continuing: Decision to DC catheter Removal date: 08/07/18 Removal time: 18:00 <Cher Freeman - Last Filed: 08/15/18 10:11> Vital signs: Vital Signs 08/20/18 20:00 08/21/18 00:00 08/21/18 04:00 Temperature 99.2 F Pulse Rate 80 49 L 55 L Respiratory Rate 18 18 Blood Pressure 122/63 Pulse Oximetry 98 08/21/18 08:00 08/21/18 12:00 08/21/18 16:00 Temperature 98.5 F 98.4 F Pulse Rate 79 68 66 Respiratory Rate 18 20 Blood Pressure 108/54 L 104/53 L Pulse Oximetry 100 100 Intake & Output 08/20/18 08/21/18 08/21/18 18:59 06:59 18:59 Intake Total 1555 / 1555 1080 / 1080 715 / 715 Balance 1555 / 1555 1080 / 1080 715 / 715 Weight 78 kg Intake: IV 715 / 715 100 / 100 715 / 715 Azactam Inj 2 GM In NS Inj 100 200 / 200 100 / 100 200 / 200 ML @ 100 mls/hr IV.SIG Q6H SHUKRI Rx#:[id number] Vancomycin Inj 1,500 MG In NS 515 / 515 515 / 515 Inj 500 ML @ 250 mls/hr IV.SIG Q24H SHUKRI Rx#:[id number] Oral 840 / 840 980 / 980 Other: # Voids 6 5 Date of Last Bowel Movement 08/20/18 # Bowel Movements 0 - Urinary Catheter Management Indwelling Urethral Catheter Cath placed during this visit: no <Slim Arrieta - Last Filed: 08/21/18 17:14> Assessment and Plan - Assessment (1) Acute kidney injury superimposed on CKD Code(s): N17.9 - Acute kidney failure, unspecified; N18.9 - Chronic kidney disease, unspecified Status: Acute Plan: Acute kidney injury with history of chronic kidney disease Initially started on CCRT 08/03, Then had hemodialysis on and with last hemodialysis on 08/06 Patient states she has not had renal biopsy. She has been followed by nephrology at [facility]. Creatinine stable at 1.24 Urinary output good 24 hour urine with 1.6 grams of protein. Complements normal, Anti DNA normal unlikely has active lupus Nephritis. Plan Possible kidney biopsy in future will wait until antibiotics are completed. Avoid nephrotoxins and dye studies Hypokalemia has resolved potassium level at 4.8, will discontinue replacement Aldactone decreased. Proteinuria, continue low dose lisinopril Follow urinary output and BMP. (2) SLE (systemic lupus erythematosus) Code(s): M32.9 - Systemic lupus erythematosus, unspecified Status: Acute Plan: Checked for Lupus activity. DNA DS normal On prednisone (3) Hypertension Code(s): I10 - Essential (primary) hypertension Status: Acute Plan: Well controlled, will monitor <Cher Freeman - Last Filed: 08/15/18 10:11> - Assessment (1) Acute kidney injury superimposed on CKD Code(s): N17.9 - Acute kidney failure, unspecified; N18.9 - Chronic kidney disease, unspecified Status: Acute Plan: Patient seen and examined, agree with above. Continue antibiotics as per ID. Creatinine is stable. (2) SLE (systemic lupus erythematosus) Code(s): M32.9 - Systemic lupus erythematosus, unspecified Status: Acute (3) Hypertension Code(s): I10 - Essential (primary) hypertension Status: Acute (4) Endocarditis of tricuspid valve Code(s): I36.8 - Other nonrheumatic tricuspid valve disorders Status: Acute <Slim Arrieta - Last Filed: 08/21/18 17:14>
[2018-08-15] MEDS ORDERED: Vancomycin Inj 1,500 MG in Sodium Chlor 0.9% Inj 500 ML IV.SIG ONE (14:00)
--- NOTE | 2018-08-15 17:46 | P.PNIM ---
Subjective Interval history: patient continues with chronic pain all over. Denies any shortness of breath. Physical Exam Vital signs: Vital Signs 08/14/18 20:00 08/15/18 00:00 08/15/18 02:31 Temperature 98.1 F 98.4 F Pulse Rate 88 73 Respiratory Rate 20 18 Blood Pressure 104/64 112/69 Pulse Oximetry 98 98 08/15/18 04:00 08/15/18 08:00 08/15/18 12:00 Temperature 98.3 F 98.5 F Pulse Rate 61 59 L 75 Respiratory Rate 18 Blood Pressure 106/64 177/92 H Pulse Oximetry 97 99 08/15/18 14:42 08/15/18 16:00 Temperature Pulse Rate 51 L Respiratory Rate Blood Pressure Pulse Oximetry 98 Intake & Output 08/14/18 08/15/18 08/15/18 18:59 06:59 18:59 Intake Total 1280 / 1280 555 / 555 100 / 100 Balance 1280 / 1280 555 / 555 100 / 100 Weight 77.2 kg Intake: IV 320 / 320 75 / 75 100 / 100 Azactam Inj 2 GM In NS Inj 100 200 / 200 75 / 75 100 / 100 ML @ 100 mls/hr IV.SIG Q6H SHUKRI Rx#:[id number] Vancomycin Inj 2,000 MG In NS 20 / 20 Inj 500 ML @ 250 mls/hr IV.SIG ONCE ONE Rx#:[id number] Oral 960 / 960 480 / 480 Other: # Voids 4 7 Date of Last Bowel Movement 08/13/18 08/15/18 # Bowel Movements 5 Narrative: GENERAL: patient sitting up in bed.Alert and oriented x3. NAD SKIN: Warm and dry. Steri strips left chest wall HEAD: Normocephalic. EYES: No scleral icterus. No injection or drainage. NECK: Supple, trachea midline. No JVD. CARDIOVASCULAR: Regular rate and rhythm without murmurs, gallops, or rubs. RESPIRATORY: Breath sounds equal bilaterally. No accessory muscle use. GASTROINTESTINAL: Abdomen soft, non-tender, nondistended. MUSCULOSKELETAL: No cyanosis, or edema. BACK: Nontender without obvious deformity. No CVA tenderness. - Urinary Catheter Management Indwelling Urethral Catheter Cath placed during this visit: yes, but has since been removed by the nurse Reason for continuing: Decision to DC catheter Removal date: 08/07/18 Removal time: 18:00 Results - Labs CBC & Chem 7: 08/15/18 06:32 08/15/18 06:26 Laboratory Results - last 24 hr 08/15/18 08/15/18 06:26 06:32 WBC 18.3 H RBC 3.50 L Hgb 10.3 L Hct 30.8 L MCV 88.1 MCH 29.5 MCHC 33.5 RDW 15.9 Plt Count 152 MPV 7.8 Neut % (Auto) 75.8 H Lymph % (Auto) 16.6 Mcduffie % (Auto) 5.8 Eos % (Auto) 1.1 Baso % (Auto) 0.7 Neut # (Auto) 13.9 H Lymph # (Auto) 3.0 Mcduffie # (Auto) 1.1 H Eos # (Auto) 0.2 Baso # (Auto) 0.1 WBC Differential . Differential Comment Auto diff final Sodium 145 Potassium 4.6 D Chloride 115 H Carbon Dioxide 17.0 L Anion Gap 13 BUN 20 H Creatinine 1.24 H Estimated GFR 48 L Random Glucose 81 Calcium 8.5 Phosphorus 3.7 D Albumin 2.8 L Assessment and Plan - Plan NEURO: Chronic pain Possible seizures Continue morphine 15 mg p.o. every 8 hours and as needed Valium 10 mg p.o. every 8 hours EEG only if recurrent seizures, Seizure-like activity noticed on 08/03/2018 most likely secondary to decreased perfusion RESP: Acute hypoxemic respiratory failure-improving Extubated 08/05/2018, tolerating well, DuoNeb q6 and PRN Broad spectrum ABX as below Intubated 08/03/2018 for probable seizure, altered mental status and severe cardiogenic shock PH at the time of intubation was 6.9, lactic acid was 15 Acidosis has resolved continue to wean FiO2 as tolerated Continue EzPAP, IS CV: Severe cardiogenic shock-resolved Symptomatic bradycardia with hypotension-resolved AICD malfunction/probable dislodged pacemaker lead, status post lead extraction and placement of new leads Severe lactic acidosis-resolved 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 2D echo shows tricuspid valve endocarditis, ID following-antibiotics as below CVVH started 08/03 due to severe acidosis, now transition to HD Prior ICD pocket infection in December 2017 and February 2018. Recently replaced by Dr. Cervantes. Per device rep she did not follow-up for scheduled outpatient interrogation following device placement. On admission, interrogation shows pacemaker intermittently capturing per [employer] rep. Holding spironolactone 25 mg p.o. daily in view of renal failure Status post extensive fluid resuscitation, now HD with fluid removal Essential hypertension. Holding Norvasc, restart when appropriate = 08/08. Norvasc to start tomorrow as per nephrology. = 08/09. Blood pressure a little low in the 100s systolic. Will decrease amlodipine to 5 mg daily. = 08/10. Continue to monitor. Blood sugars acceptable. = 08/12. Continue IV antibiotics as per infectious disease. Cultures negative at this time. GI: Crohn's disease Renal diet. Protonix to IV-change to PO States she is scheduled to follow-up with [facility] gastroenterology in the end of August Currently on stress dose steroids, changed to home dose of prednisone 30 mg daily = We will decrease dose of prednisone to 20 mg daily. This is above physiologic dosing. = Continue prednisone 20 mg daily. Appears to be more relaxed at this dose. 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 Hasn't followed up with gynecology in over a year. Endometriosis Beta hCG is negative. Hemoglobin is stable, can follow-up as an outpatient with gynecology. FEN/RENAL: Acute on chronic kidney disease with anuria Chronic kidney disease stage III Started on CVVH 08/03/18 due to anuria and severe metabolic acidosis CVVH changed to hemodialysis 08/04/18 as the blood pressure improved. Urine output slowly improving Nephrology Dr. Arrieta. Currently patient has a right femoral Vas-Cath. Will discuss upper body dialysis catheter placement by IR probably after HD tomorrow , and when white count is further improved Patient states she has not had renal biopsy. She has been followed by nephrology at [facility]. = Nephrology following. Appreciate assistance. Renal function improving slowly. =08/15 with anion gap metabolic acidosis, likely secondary to resolving acute kidney injury. As per nephrology. Hypokalemia Potassium replacement = 08/09. Potassium 2.5. Replaced as per protocol. Additional potassium ordered today. Nephrology following. Appreciate assistance. Follow-up tomorrow. = 08/10. Potassium 3.1. Continue daily replacement as per nephrology. Appreciate assistance. = 08/11. Potassium 3.2. Replace and monitor. = 08/12. Potassium 3.2. Replace and monitor. = 08/13. Potassium 3.3. Replace. 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 She has undergone device removal on 2 prior occasions. Most recently was removed in February 2018 with wound VAC placement. Device replaced 06/27/18. She reported fever 102.7, however she is afebrile here. Continue renally dosed vancomycin, aztreonam, Flagyl 2D echo showed tricuspid valve endocarditis 1.7 x 0.5, however blood cultures 2 sets apparently remains negative Continue medical management. Leukocytosis improving = 08/09 leukocytosis continues improving. 13.8. Continue IV antibiotics as per infectious disease. Appreciate assistance. = 08/10. Leukocytosis improving 11.3. Continue broad-spectrum IV antibiotics as per infectious disease. = 08/13. Leukocytosis of 12. Continue IV antibiotics as per infectious disease. Appreciate assistance. =08/14. Discussed infectious disease. Continue IV antibiotics. =08/15. Discussed with nursing and case management in the ER. Continue IV antibiotics as per infectious disease. IV access issues. As per infectious disease. RHEUM: Systemic lupus erythematosus On chronic steroids On chronic prednisone 30 mg p.o. daily for >2 years. In view of shock will place on hydrocortisone 100 mill grams IV every 8 hours. Hydrocortisone was reduced to 50 mg every 8 hours yesterday, restart prednisone 30 mg today and DC hydrocortisone Scheduled to follow-up with [facility] rheumatology end of August. = Blood pressure acceptable. Continue on 20 mg prednisone daily. HEME: Chronic anemia Thrombocytopenia most likely secondary to DIC/sepsis Transfuse blood and blood products as needed Transfuse 1 unit PRBC today with hemodialysis 08/06/2018 = Platelets 131. Improved. No signs of bleeding. Hemoglobin stable. ENDO: Hypothyroidism Continue Synthroid 112 mcg p.o. daily. Normal TSH. //Insomnia Patient was not receiving as needed melatonin. Will make melatonin scheduled = 08/13. Patient still with poor sleep. Discussed sleep hygiene. Will add Ativan at night. =08/14. Sleep improved. Continue to monitor. PROPH: SCDs for DVT prophylaxis. Hold pharmacologic DVT prophylaxis at this time due to recent invasive procedure, thrombocytopenia If consistently stays above 90, place on heparin subcu Protonix 40 mg daily for stress ulcer prophylaxis. ACCESS: New right IJ central line, right radial arterial line 08/03/18- DCd right femoral Vas-Cath placed 08/03/18-removed 08/09. Discharge Planning: Continues treatment inpatient with IV antibiotics for endocarditis. We will need clearance from infectious disease, nephrology. PT following.
[2018-08-15] MEDS: LORazepam 1 MG Tablet PO SCH (21:47)
[2018-08-15] MEDS: Sodium Bicarbonate 650 MG Tablet PO SCH (21:47)
[2018-08-15] MEDS: Melatonin 5 MG Tablet PO SCH (21:48)
[2018-08-16] MEDS: Morphine Sulfate Inj 2 MG/ML Vial IV.PUSH PRN ×3 (03:02→21:08)
[2018-08-16] MEDS: Aztreonam Inj 2 GM in Sodium Chloride 0.9% Inj 100 ML IV.SIG SCH ×4 (03:03→21:08)
[2018-08-16] MEDS: Morphine Sulfate 15 MG IR Tablet PO PRN ×2 (07:58→16:38)
[2018-08-16] MEDS: Levothyroxine 112 MCG Tablet PO SCH (07:59)
[2018-08-16] MEDS: Pantoprazole Inj 40 MG Vial IV.PUSH SCH (09:46)
[2018-08-16] MEDS: Spironolactone 25 MG Tablet PO SCH (09:47)
[2018-08-16] MEDS: predniSONE 20 MG Tablet PO SCH (09:47)
[2018-08-16] MEDS: amLODIPine 5 MG Tablet PO SCH (09:48)
[2018-08-16] MEDS: Lisinopril 5 MG Tablet PO SCH (09:49)
[2018-08-16] MEDS: Sodium Bicarbonate 650 MG Tablet PO SCH ×2 (09:49→21:08)
[2018-08-16] MEDS: Senna/Docusate Sodium 8.6/50 MG Tablet PO SCH ×2 (09:50→21:09)
--- NOTE | 2018-08-16 11:55 | P.PN ---
Subjective Interval history: The patient is in bed she is crying at times says she wants a PICC line placed because is difficult IV site and says antibiotics are hurting. Discussed with Dr. Levy patient is not clear to have a any central line. Patient is aware. Otherwise no complaints. No chest pain or shortness of breath she is saturating well on room air. No edema in her legs. Is not coughing. Patient with labile mood however says she does not want to see if psychiatry doctor. Physical Exam Vital signs: Vital Signs 08/15/18 12:00 08/15/18 14:42 08/15/18 16:00 Temperature 98.3 F 98.6 F Pulse Rate 60 66 Respiratory Rate 18 18 Blood Pressure 110/62 112/64 Pulse Oximetry 99 98 98 08/15/18 20:00 08/15/18 22:18 08/16/18 00:00 Temperature 98.7 F 98.4 F Pulse Rate 88 82 Respiratory Rate 18 19 Blood Pressure 127/82 113/70 Pulse Oximetry 99 96 99 08/16/18 04:00 08/16/18 07:30 08/16/18 08:00 Temperature 98.3 F 98.3 F Pulse Rate 75 60 87 Respiratory Rate 17 16 Blood Pressure 100/67 112/74 Pulse Oximetry 97 99 08/16/18 11:03 08/16/18 11:39 Temperature 98.4 F Pulse Rate 84 Respiratory Rate 17 Blood Pressure 148/68 H Pulse Oximetry 98 Intake & Output 08/15/18 08/16/18 08/16/18 18:59 06:59 18:59 Intake Total 100 / 100 200 / 200 100 / 100 Balance 100 / 100 200 / 200 100 / 100 Weight 78 kg Intake: IV 100 / 100 200 / 200 100 / 100 Azactam Inj 2 GM In NS Inj 100 100 / 100 200 / 200 100 / 100 ML @ 100 mls/hr IV.SIG Q6H [facility] Rx#:[id number] Other: # Voids 7 # Bowel Movements 3 Narrative: GENERAL: patient sitting up in bed.Alert and oriented x3. NAD. However with labile mood. SKIN: Warm and dry. Steri strips left chest wall CARDIOVASCULAR: Regular rate and rhythm without murmurs, gallops, or rubs. RESPIRATORY: Breath sounds equal bilaterally. No accessory muscle use. GASTROINTESTINAL: Abdomen soft, non-tender, nondistended. MUSCULOSKELETAL: No cyanosis, or edema. BACK: Nontender without obvious deformity. No CVA tenderness. - Urinary Catheter Management Indwelling Urethral Catheter Cath placed during this visit: yes, but has since been removed by the nurse Reason for continuing: Decision to DC catheter Removal date: 08/07/18 Removal time: 18:00 Results - Labs CBC & Chem 7: 08/15/18 06:32 08/15/18 06:26 Laboratory Results - last 24 hr 08/16/18 07:12 Random Vancomycin 2.2 Assessment and Plan - Plan NEURO: Chronic pain Possible seizures Continue morphine 15 mg p.o. every 8 hours and as needed Valium 10 mg p.o. every 8 hours EEG only if recurrent seizures, Seizure-like activity noticed on 08/03/2018 most likely secondary to decreased perfusion RESP: Acute hypoxemic respiratory failure-improving Extubated 08/05/2018, tolerating well, DuoNeb q6 and PRN Broad spectrum ABX as below Intubated 08/03/2018 for probable seizure, altered mental status and severe cardiogenic shock PH at the time of intubation was 6.9, lactic acid was 15 Acidosis has resolved continue to wean FiO2 as tolerated Continue EzPAP, IS CV: Severe cardiogenic shock-resolved Symptomatic bradycardia with hypotension-resolved AICD malfunction/probable dislodged pacemaker lead, status post lead extraction and placement of new leads Severe lactic acidosis-resolved 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 2D echo shows tricuspid valve endocarditis, ID following-antibiotics as below CVVH started 08/03 due to severe acidosis, now transition to HD Prior ICD pocket infection in December 2017 and February 2018. Recently replaced by Dr. Cervantes. Per device rep she did not follow-up for scheduled outpatient interrogation following device placement. On admission, interrogation shows pacemaker intermittently capturing per [employer] rep. Holding spironolactone 25 mg p.o. daily in view of renal failure Status post extensive fluid resuscitation, now HD with fluid removal Essential hypertension. Holding Norvasc, restart when appropriate = 08/08. Norvasc to start tomorrow as per nephrology. = 08/09. Blood pressure a little low in the 100s systolic. Will decrease amlodipine to 5 mg daily. = 08/10. Continue to monitor. Blood sugars acceptable. = 08/12. Continue IV antibiotics as per infectious disease. Cultures negative at this time. GI: Crohn's disease Renal diet. Protonix to IV-change to PO States she is scheduled to follow-up with [facility] gastroenterology in the end of August Currently on stress dose steroids, changed to home dose of prednisone 30 mg daily = We will decrease dose of prednisone to 20 mg daily. This is above physiologic dosing. = Continue prednisone 20 mg daily. Appears to be more relaxed at this dose. 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 BACON SKINNER: Menorrhagia, patient reports is a chronic problem. Hasn't followed up with gynecology in over a year. Endometriosis Beta hCG is negative. Hemoglobin is stable, can follow-up as an outpatient with gynecology. FEN/RENAL: Acute on chronic kidney disease with anuria Chronic kidney disease stage III Started on CVVH 08/03/18 due to anuria and severe metabolic acidosis CVVH changed to hemodialysis 08/04/18 as the blood pressure improved. Urine output slowly improving Nephrology Dr. Arrieta. Currently patient has a right femoral Vas-Cath. Will discuss upper body dialysis catheter placement by IR probably after HD tomorrow , and when white count is further improved Patient states she has not had renal biopsy. She has been followed by nephrology at [facility]. = Nephrology following. Appreciate assistance. Renal function improving slowly. =08/15 with anion gap metabolic acidosis, likely secondary to resolving acute kidney injury. As per nephrology. Hypokalemia Potassium replacement = 08/09. Potassium 2.5. Replaced as per protocol. Additional potassium ordered today. Nephrology following. Appreciate assistance. Follow-up tomorrow. = 08/10. Potassium 3.1. Continue daily replacement as per nephrology. Appreciate assistance. = 08/11. Potassium 3.2. Replace and monitor. = 08/12. Potassium 3.2. Replace and monitor. = 08/13. Potassium 3.3. Replace. 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 She has undergone device removal on 2 prior occasions. Most recently was removed in February 2018 with wound VAC placement. Device replaced 06/27/18. She reported fever 102.7, however she is afebrile here. Continue renally dosed vancomycin, aztreonam, Flagyl 2D echo showed tricuspid valve endocarditis 1.7 x 0.5, however blood cultures 2 sets apparently remains negative Continue medical management. Leukocytosis improving = 08/09 leukocytosis continues improving. 13.8. Continue IV antibiotics as per infectious disease. Appreciate assistance. = 08/10. Leukocytosis improving 11.3. Continue broad-spectrum IV antibiotics as per infectious disease. = 08/13. Leukocytosis of 12. Continue IV antibiotics as per infectious disease. Appreciate assistance. =08/14. Discussed infectious disease. Continue IV antibiotics. =08/15. Discussed with nursing and case management in the ER. Continue IV antibiotics as per infectious disease. IV access issues. As per infectious disease. RHEUM: Systemic lupus erythematosus On chronic steroids On chronic prednisone 30 mg p.o. daily for >2 years. In view of shock will place on hydrocortisone 100 mill grams IV every 8 hours. Hydrocortisone was reduced to 50 mg every 8 hours yesterday, restart prednisone 30 mg today and DC hydrocortisone Scheduled to follow-up with [facility] rheumatology end of August. = Blood pressure acceptable. Continue on 20 mg prednisone daily. HEME: Chronic anemia Thrombocytopenia most likely secondary to DIC/sepsis Transfuse blood and blood products as needed Transfuse 1 unit PRBC today with hemodialysis 08/06/2018 = Platelets 131. Improved. No signs of bleeding. Hemoglobin stable. ENDO: Hypothyroidism Continue Synthroid 112 mcg p.o. daily. Normal TSH. Insomnia Patient was not receiving as needed melatonin. Will make melatonin scheduled = 08/13. Patient still with poor sleep. Discussed sleep hygiene. Will add Ativan at night. =08/14. Sleep improved. Continue to monitor. Labile mood. Patient refusing seen psychiatry doctor. PROPH: SCDs for DVT prophylaxis. Hold pharmacologic DVT prophylaxis at this time due to recent invasive procedure, thrombocytopenia If consistently stays above 90, place on heparin subcu Protonix 40 mg daily for stress ulcer prophylaxis. ACCESS: New right IJ central line, right radial arterial line 08/03/18- DCd right femoral Vas-Cath placed 08/03/18-removed 08/09. Discharge Planning: Continues treatment inpatient with IV antibiotics for endocarditis. We will need clearance from infectious disease, nephrology. PT following.
[2018-08-16] MEDS: Vancomycin Inj 1,500 MG in Sodium Chlor 0.9% Inj 500 ML IV.SIG SCH ×2 (13:18→17:20)
--- NOTE | 2018-08-16 14:54 | P.PNNP ---
Subjective Interval history: Seen in AM, sitting by computer area. Continues to report pain but appears more comfortably. <Cher Freeman - Last Filed: 08/16/18 14:55> Physical Exam Vital signs: Vital Signs 08/15/18 16:00 08/15/18 20:00 08/15/18 22:18 Temperature 98.6 F 98.7 F Pulse Rate 66 88 Respiratory Rate 18 18 Blood Pressure 112/64 127/82 Pulse Oximetry 98 99 96 08/16/18 00:00 08/16/18 04:00 08/16/18 07:30 Temperature 98.4 F 98.3 F Pulse Rate 82 75 60 Respiratory Rate 19 17 Blood Pressure 113/70 100/67 Pulse Oximetry 99 97 08/16/18 08:00 08/16/18 11:03 08/16/18 11:39 Temperature 98.3 F 98.4 F Pulse Rate 87 84 Respiratory Rate 16 17 Blood Pressure 112/74 148/68 H Pulse Oximetry 99 98 Intake & Output 08/15/18 08/16/18 08/16/18 18:59 06:59 18:59 Intake Total 100 / 100 200 / 200 100 / 100 Balance 100 / 100 200 / 200 100 / 100 Weight 78 kg Intake: IV 100 / 100 200 / 200 100 / 100 Azactam Inj 2 GM In NS Inj 100 100 / 100 200 / 200 100 / 100 ML @ 100 mls/hr IV.SIG Q6H [facility] Rx#:[id number] Other: # Voids 7 # Bowel Movements 3 Narrative: GENERAL: Alert and oriented x3. NAD SKIN: Warm and dry. Steri strips left chest wall HEAD: Normocephalic. EYES: No scleral icterus. No injection or drainage. NECK: Supple, trachea midline. No JVD. CARDIOVASCULAR: Regular rate and rhythm without murmurs, gallops, or rubs. RESPIRATORY: Breath sounds equal bilaterally. No accessory muscle use. GASTROINTESTINAL: Abdomen soft, non-tender, nondistended. MUSCULOSKELETAL: No cyanosis, or edema. BACK: Nontender without obvious deformity. No CVA tenderness. - Urinary Catheter Management Indwelling Urethral Catheter Cath placed during this visit: yes, but has since been removed by the nurse Reason for continuing: Decision to DC catheter Removal date: 08/07/18 Removal time: 18:00 <Cher Freeman - Last Filed: 08/16/18 14:55> Vital signs: Vital Signs 08/20/18 20:00 08/21/18 00:00 08/21/18 04:00 Temperature 99.2 F Pulse Rate 80 49 L 55 L Respiratory Rate 18 18 Blood Pressure 122/63 Pulse Oximetry 98 08/21/18 08:00 08/21/18 12:00 08/21/18 16:00 Temperature 98.5 F 98.4 F Pulse Rate 79 68 66 Respiratory Rate 18 20 Blood Pressure 108/54 L 104/53 L Pulse Oximetry 100 100 Intake & Output 08/20/18 08/21/18 08/21/18 18:59 06:59 18:59 Intake Total 1555 / 1555 1080 / 1080 715 / 715 Balance 1555 / 1555 1080 / 1080 715 / 715 Weight 78 kg Intake: IV 715 / 715 100 / 100 715 / 715 Azactam Inj 2 GM In NS Inj 100 200 / 200 100 / 100 200 / 200 ML @ 100 mls/hr IV.SIG Q6H [facility] Rx#:[id number] Vancomycin Inj 1,500 MG In NS 515 / 515 515 / 515 Inj 500 ML @ 250 mls/hr IV.SIG Q24H [facility] Rx#:[id number] Oral 840 / 840 980 / 980 Other: # Voids 6 5 Date of Last Bowel Movement 08/20/18 # Bowel Movements 0 - Urinary Catheter Management Indwelling Urethral Catheter Cath placed during this visit: no <Slim Arrieta - Last Filed: 08/21/18 17:17> Assessment and Plan - Assessment (1) Acute kidney injury superimposed on CKD Code(s): N17.9 - Acute kidney failure, unspecified; N18.9 - Chronic kidney disease, unspecified Status: Acute Plan: Acute kidney injury with history of chronic kidney disease Initially started on CCRT 08/03, Then had hemodialysis on and with last hemodialysis on 08/06 Patient states she has not had renal biopsy. She has been followed by nephrology at [facility]. 24 hour urine with 1.6 grams of protein. Complements normal, Anti DNA normal unlikely has active lupus Nephritis. Plan Possible kidney biopsy in future will wait until antibiotics are completed. Avoid nephrotoxins and dye studies Proteinuria, continue low dose lisinopril Follow urinary output and BMP. Renal panel ordered for AM (2) SLE (systemic lupus erythematosus) Code(s): M32.9 - Systemic lupus erythematosus, unspecified Status: Acute Plan: Checked for Lupus activity. DNA DS normal On prednisone (3) Hypertension Code(s): I10 - Essential (primary) hypertension Status: Acute Plan: Well controlled, amlodipine decreased, will monitor <Cher Freeman - Last Filed: 08/16/18 14:55> - Assessment (1) Acute kidney injury superimposed on CKD Code(s): N17.9 - Acute kidney failure, unspecified; N18.9 - Chronic kidney disease, unspecified Status: Acute Plan: Patient seen and examined, agree with above. Creatinine is stable, will consider Renal Biopsy after completion of antibiotics. (2) SLE (systemic lupus erythematosus) Code(s): M32.9 - Systemic lupus erythematosus, unspecified Status: Acute (3) Hypertension Code(s): I10 - Essential (primary) hypertension Status: Acute (4) Endocarditis of tricuspid valve Code(s): I36.8 - Other nonrheumatic tricuspid valve disorders Status: Acute <Slim Arrieta - Last Filed: 08/21/18 17:17>
--- NOTE | 2018-08-16 15:25 | P.PNID ---
Subjective Remarks: afebrile c/o pain @ vanco infusion site on RA Antibiotics: vanco azactam Allergies/Adverse Reactions: Allergies cephalexin Allergy (Severe, Verified 07/13/18 17:57) RASH,SWELLING Fish Containing Products Allergy (Severe, Verified 07/13/18 17:57) SWELLING IN THROAT, SOB ketorolac Allergy (Severe, Verified 07/13/18 17:57) RASH penicillin G Allergy (Severe, Verified 07/13/18 17:57) RASH,SWELLING prochlorperazine Allergy (Mild, Verified 07/13/18 17:57) DYSTONIC REACTION promethazine Allergy (Mild, Verified 07/13/18 17:57) DYSTONIC REACTION Objective Vital Signs 08/15/18 16:00 08/15/18 20:00 08/15/18 22:18 Temperature 98.6 F 98.7 F Pulse Rate 66 88 Respiratory Rate 18 18 Blood Pressure 112/64 127/82 Pulse Oximetry 98 99 96 08/16/18 00:00 08/16/18 04:00 08/16/18 07:30 Temperature 98.4 F 98.3 F Pulse Rate 82 75 60 Respiratory Rate 19 17 Blood Pressure 113/70 100/67 Pulse Oximetry 99 97 08/16/18 08:00 08/16/18 11:03 08/16/18 11:39 Temperature 98.3 F 98.4 F Pulse Rate 87 84 Respiratory Rate 16 17 Blood Pressure 112/74 148/68 H Pulse Oximetry 99 98 Intake & Output 08/15/18 08/16/18 08/16/18 18:59 06:59 18:59 Intake Total 100 / 100 200 / 200 100 / 100 Balance 100 / 100 200 / 200 100 / 100 Weight 78 kg Intake: IV 100 / 100 200 / 200 100 / 100 Azactam Inj 2 GM In NS Inj 100 100 / 100 200 / 200 100 / 100 ML @ 100 mls/hr IV.SIG Q6H [facility] Rx#:[id number] Other: # Voids 7 # Bowel Movements 3 Lab - Hematology Results 08/15/18 06:32 WBC 18.3 H RBC 3.50 L Hgb 10.3 L Hct 30.8 L MCV 88.1 MCH 29.5 MCHC 33.5 RDW 15.9 Plt Count 152 MPV 7.8 Neut % (Auto) 75.8 H Lymph % (Auto) 16.6 [place] % (Auto) 5.8 Eos % (Auto) 1.1 Baso % (Auto) 0.7 Neut # (Auto) 13.9 H Lymph # (Auto) 3.0 [place] # (Auto) 1.1 H Eos # (Auto) 0.2 Baso # (Auto) 0.1 WBC Differential . Differential Comment Auto diff final Lab - Chemistry Results 08/15/18 06:26 Sodium 145 Potassium 4.6 D Chloride 115 H Carbon Dioxide 17.0 L Anion Gap 13 BUN 20 H Creatinine 1.24 H Estimated GFR 48 L Random Glucose 81 Calcium 8.5 Phosphorus 3.7 D Albumin 2.8 L Imaging: ITS Impressions Chest X-Ray 08/08/18 06:00 CONCLUSION: 1. No significant interval change. 2. Stable bilateral lower lung zone airspace disease and likely trace pleural effusion. Physical Exam: GENERAL: NAD SKIN: Warm and dry. NO rash HEAD: Atraumatic. Normocephalic. EYES: Pupils equal and round. No scleral icterus. No injection or drainage. ENT: No nasal bleeding or discharge. Mucous membranes pink and moist. CARDIOVASCULAR: Regular rate and rhythm. + Murmur L sternal upper border L chest incision dry, clean but very tender RESPIRATORY: No accessory muscle use. Clear to auscultation. Breath sounds equal bilaterally. GASTROINTESTINAL: Abdomen soft, mildly tender, nondistended. Unchanged MUSCULOSKELETAL: Extremities without clubbing, cyanosis, or edema. No obvious deformities. NEUROLOGICAL: Awake and alert. Non focal Normal speech. 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 negative bartonella, coxiella serologies sp lead revision last clx from April Proteus, prior to that MSSA, MRSA Pacer/AICD depended - removal of pacer not an option - dw Dr Torres Pt is doing much better today Persistent/worsening leukocytosis PLAN: cont azactam, cont Vanco will Rx x 6 weeks fu WBC OK PICC for in patient use fu 2 D echo chk stool for c.diff dw Dr Cynthia meeks RN
--- NOTE | 2018-08-16 16:22 | P.PNADD ---
Addendum to Inpatient Note Reason for Addendum: Additional Documentation Additional information: PICC can not be placed by vasc access team 2/2 pacemaker will jeanna Cervantes and IR radiologist prior to PICC placement
[2018-08-16] MEDS: LORazepam 1 MG Tablet PO SCH (21:09)
[2018-08-16] MEDS: Melatonin 5 MG Tablet PO SCH (21:09)
[2018-08-17] MEDS: Morphine Sulfate 15 MG IR Tablet PO PRN ×3 (00:21→17:43)
[2018-08-17] MEDS: Aztreonam Inj 2 GM in Sodium Chloride 0.9% Inj 100 ML IV.SIG SCH ×4 (04:21→21:08)
[2018-08-17] MEDS: Morphine Sulfate Inj 2 MG/ML Vial IV.PUSH PRN ×3 (04:22→21:08)
[2018-08-17 06:57] LABS: Baso # (Auto) 0.1 th/mm3 (0.0-0.2); Eos # (Auto) 0.2 th/mm3 (0.0-0.4); Eos % (Auto) 1.4 % (0.0-4.0); Hematocrit 30.5 % (35.0-46.0); Hemoglobin 10.2 gm/dL (11.6-15.3); Lymph # (Auto) 2.9 th/mm3 (1.0-4.8); Lymph % (Auto) 19.3 % (9.0-44.0); Mean Corpuscular HGB Conc 33.5 % (32.0-36.0); Mean Corpuscular Hemoglobin 29.4 pg (27.0-34.0); Mean Corpuscular Volume 87.7 fL (80.0-100.0); Mean Platelet Volume 7.7 fL (7.0-11.0); Mono # (Auto) 0.8 th/mm3 (0.0-0.9); Mono % (Auto) 5.7 % (0.0-8.0); Neut # (Auto) 10.9 th/mm3 (1.8-7.7); Neut % (Auto) 72.6 % (16.0-70.0); Platelet Count 185 th/mm3 (150-450); Red Blood Count 3.48 mil/mm3 (4.00-5.30); Red Cell Distribution Width 16.6 % (11.6-17.2); White Blood Count 14.9 th/mm3 (4.0-11.0)
[2018-08-17 07:14] LABS: Calcium 8.4 mg/dL (8.5-10.1); Carbon Dioxide 20.6 meq/L (21.0-32.0); Phosphorus 3.4 mg/dL (2.5-4.9); Potassium 3.4 meq/L (3.5-5.1)
[2018-08-17] MEDS: Levothyroxine 112 MCG Tablet PO SCH (08:30)
[2018-08-17] MEDS: Senna/Docusate Sodium 8.6/50 MG Tablet PO SCH ×2 (08:30→21:08)
[2018-08-17] MEDS: Lisinopril 5 MG Tablet PO SCH (08:30)
[2018-08-17] MEDS: amLODIPine 5 MG Tablet PO SCH (08:30)
[2018-08-17] MEDS: Sodium Bicarbonate 650 MG Tablet PO SCH ×2 (08:30→21:07)
[2018-08-17] MEDS: Pantoprazole Inj 40 MG Vial IV.PUSH SCH (08:30)
[2018-08-17] MEDS: predniSONE 20 MG Tablet PO SCH (08:30)
[2018-08-17] MEDS: Spironolactone 25 MG Tablet PO SCH (08:33)
--- NOTE | 2018-08-17 09:57 | P.PNNP ---
Subjective Interval history: Reports shortness of breath on exertion, nausea, and pain all over. Denies any vomiting and loose stools have improved. Creatinine is stable at 1.24. <Cher Freeman - Last Filed: 08/17/18 09:50> Physical Exam Vital signs: Vital Signs 08/16/18 11:03 08/16/18 11:39 08/16/18 12:00 Temperature 98.4 F Pulse Rate 84 67 Respiratory Rate 17 Blood Pressure 148/68 H Pulse Oximetry 98 08/16/18 16:00 08/16/18 20:00 08/17/18 00:00 Temperature 98.8 F 98.2 F 98.2 F Pulse Rate 72 57 L 60 Respiratory Rate 20 18 18 Blood Pressure 130/65 122/63 103/58 L Pulse Oximetry 96 99 97 08/17/18 04:00 08/17/18 08:00 Temperature 98.4 F 98.5 F Pulse Rate 70 77 Respiratory Rate 18 17 Blood Pressure 130/64 147/63 H Pulse Oximetry 98 97 Intake & Output 08/16/18 08/17/18 08/17/18 18:59 06:59 18:59 Intake Total 680 / 680 200 / 200 Balance 680 / 680 200 / 200 Weight 78.2 kg Intake: IV 200 / 200 200 / 200 Azactam Inj 2 GM In NS Inj 100 200 / 200 200 / 200 ML @ 100 mls/hr IV.SIG Q6H [facility] Rx#:[id number] Oral 480 / 480 Other: # Voids 3 3 Date of Last Bowel Movement 08/16/18 Narrative: GENERAL: Alert and oriented x3. NAD SKIN: Warm and dry. Steri strips left chest wall NECK: Supple, trachea midline. No JVD. CARDIOVASCULAR: Regular rate and rhythm without murmurs, gallops, or rubs. RESPIRATORY: Breath sounds equal bilaterally. No accessory muscle use. GASTROINTESTINAL: Abdomen soft, non-tender, nondistended. MUSCULOSKELETAL: No cyanosis, or edema. BACK: Nontender without obvious deformity. No CVA tenderness. - Urinary Catheter Management Indwelling Urethral Catheter Cath placed during this visit: yes, but has since been removed by the nurse Reason for continuing: Decision to DC catheter Removal date: 08/07/18 Removal time: 18:00 <Cher Freeman - Last Filed: 08/17/18 09:50> Vital signs: Vital Signs 08/20/18 20:00 08/21/18 00:00 08/21/18 04:00 Temperature 99.2 F Pulse Rate 80 49 L 55 L Respiratory Rate 18 18 Blood Pressure 122/63 Pulse Oximetry 98 08/21/18 08:00 08/21/18 12:00 08/21/18 16:00 Temperature 98.5 F 98.4 F Pulse Rate 79 68 66 Respiratory Rate 18 20 Blood Pressure 108/54 L 104/53 L Pulse Oximetry 100 100 Intake & Output 08/20/18 08/21/18 08/21/18 18:59 06:59 18:59 Intake Total 1555 / 1555 1080 / 1080 815 / 815 Balance 1555 / 1555 1080 / 1080 815 / 815 Weight 78 kg Intake: IV 715 / 715 100 / 100 815 / 815 Azactam Inj 2 GM In NS Inj 100 200 / 200 100 / 100 300 / 300 ML @ 100 mls/hr IV.SIG Q6H [facility] Rx#:[id number] Vancomycin Inj 1,500 MG In NS 515 / 515 515 / 515 Inj 500 ML @ 250 mls/hr IV.SIG Q24H [facility] Rx#:[id number] Oral 840 / 840 980 / 980 Other: # Voids 6 5 Date of Last Bowel Movement 08/20/18 # Bowel Movements 0 - Urinary Catheter Management Indwelling Urethral Catheter Cath placed during this visit: no <Slim Arrieta - Last Filed: 08/21/18 17:27> Assessment and Plan - Assessment (1) Acute kidney injury superimposed on CKD Code(s): N17.9 - Acute kidney failure, unspecified; N18.9 - Chronic kidney disease, unspecified Status: Acute Plan: Acute kidney injury with history of chronic kidney disease Initially started on CCRT 08/03, Then had hemodialysis on and with last hemodialysis on 08/06 Patient states she has not had renal biopsy. She has been followed by nephrology at [facility]. 24 hour urine with 1.6 grams of protein. Complements normal, Anti DNA normal unlikely has active lupus Nephritis. Creatinine stable at 1.24 Plan Possible kidney biopsy in future will wait until antibiotics are completed. Avoid nephrotoxins and dye studies Proteinuria, continue low dose lisinopril Continue spironolactone Hypokalemia, replacement given HCO3 improving at 20.6, continue sodium bicarbonate. Follow urinary output and BMP. Renal panel ordered for AM (2) SLE (systemic lupus erythematosus) Code(s): M32.9 - Systemic lupus erythematosus, unspecified Status: Acute Plan: Checked for Lupus activity. DNA DS normal On prednisone (3) Hypertension Code(s): I10 - Essential (primary) hypertension Status: Acute Plan: Well controlled,will monitor (4) Endocarditis of tricuspid valve Code(s): I36.8 - Other nonrheumatic tricuspid valve disorders Status: Acute Plan: Antibiotics per ID PICC line placement <Cher Freeman - Last Filed: 08/17/18 09:50> - Assessment (1) Acute kidney injury superimposed on CKD Code(s): N17.9 - Acute kidney failure, unspecified; N18.9 - Chronic kidney disease, unspecified Status: Acute Plan: Patient seen and examined, agree with above. On Aldactone, last Creatinine was stable. (2) SLE (systemic lupus erythematosus) Code(s): M32.9 - Systemic lupus erythematosus, unspecified Status: Acute (3) Hypertension Code(s): I10 - Essential (primary) hypertension Status: Acute (4) Endocarditis of tricuspid valve Code(s): I36.8 - Other nonrheumatic tricuspid valve disorders Status: Acute <Slim Arrieta - Last Filed: 08/21/18 17:27>
[2018-08-17] MEDS: Vancomycin Inj 1,500 MG in Sodium Chlor 0.9% Inj 500 ML IV.SIG SCH (12:36)
--- NOTE | 2018-08-17 12:37 | ECHRPT ---
Indication: SEPSIS CONCLUSIONS The left ventricular systolic function is normal with an estimated ejection fraction in the range of 55-60%. Normal left ventricular size. Wall thickness is normal. No regional wall motion abnormalities are present. A pacemaker wire is noted. Structurally normal tricuspid valve. There is trace tricuspid valve regurgitation. The estimated pulmonary arterial pressure is 26 mmHg. BP: / HR: Rhythm: Sinus MEASUREMENTS (Male / Female) Normal Values Technical Quality:Good 2D ECHO LV Diastolic Diameter PLAX 5.0 cm 4.2 - 5.9 / 3.9 - 5.3 cm LV Systolic Diameter PLAX 3.3 cm IVS Diastolic Thickness 1.0 cm 0.6 - 1.0 / 0.6 - 0.9 cm LVPW Diastolic Thickness 1.0 cm 0.6 - 1.0 / 0.6 - 0.9 cm LV Relative Wall Thickness 0.4 LA Systolic Diameter LX 3.9 cm 3.0 - 4.0 / 2.7 - 3.8 cm DOPPLER AV Peak Velocity 144.0 cm/s AV Peak Gradient 8.3 mmHg LVOT Peak Velocity 96.3 cm/s LVOT Peak Gradient 3.7 mmHg TR Peak Velocity 200.0 cm/s TR Peak Gradient 16.0 mmHg Right Atrial Pressure 10.0 mmHg Pulmonary Artery Systolic Pressu 26.0 mmHg Right Ventricular Systolic Press 26.0 mmHg FINDINGS LEFT VENTRICLE The left ventricular systolic function is normal with an estimated ejection fraction in the range of 55-60%. Normal left ventricular size. Wall thickness is normal. No regional wall motion abnormalities are present. RIGHT VENTRICLE Normal right ventricular size and systolic function. A pacemaker wire is noted. LEFT ATRIUM The left atrial size is normal. RIGHT ATRIUM There is a pacemaker wire present in the right atrial cavity. ATRIAL SEPTUM Normal atrial septal thickness without atrial level shunting by limited color doppler interrogation. AORTA The aortic root and proximal ascending aorta are normal in size on limited imaging. MITRAL VALVE Structurally normal mitral valve. No mitral valve stenosis or regurgitation. AORTIC VALVE Trileaflet aortic valve. No aortic valve stenosis or regurgitation. TRICUSPID VALVE Structurally normal tricuspid valve. There is trace tricuspid valve regurgitation. The estimated pulmonary arterial pressure is 26 mmHg. PULMONARY VALVE No pulmonary valve regurgitation or stenosis. VESSELS The inferior vena cava is normal in size. PERICARDIUM No pericardial effusion. Feliz Leiva MD, FACC (Electronically Signed) Final Date:17 August 2018 12:36
--- NOTE | 2018-08-17 15:35 | P.PN ---
Subjective Interval history: The patient is in bed, crying saying she does not like the antibiotics she is refusing on and off antibiotic administration. She wants a PICC line placed. I explained to the patient that only infectious disease doctor can clear for PICC line placement. I discussed with infectious disease Dr. Levy and patient is not a candidate for PICC line. Otherwise patient appears in not acute distress she is able to ambulate per patient and she is sitting in the chair sometimes. No fever or chills. No shortness of breath she is saturating well on room air. No nausea vomiting or diarrhea constipation. No rash on the body. The patient with labile mood. However she is refusing seeing psychiatry doctor. Physical Exam Vital signs: Vital Signs 08/16/18 16:00 08/16/18 20:00 08/17/18 00:00 Temperature 98.8 F 98.2 F 98.2 F Pulse Rate 72 57 L 60 Respiratory Rate 20 18 18 Blood Pressure 130/65 122/63 103/58 L Pulse Oximetry 96 99 97 08/17/18 04:00 08/17/18 08:00 08/17/18 11:58 Temperature 98.4 F 98.5 F 98.4 F Pulse Rate 70 57 L 69 Respiratory Rate 18 17 16 Blood Pressure 130/64 147/63 H 120/55 L Pulse Oximetry 98 97 97 Intake & Output 08/16/18 08/17/18 08/17/18 18:59 06:59 18:59 Intake Total 680 / 680 200 / 200 615 / 615 Balance 680 / 680 200 / 200 615 / 615 Weight 78.2 kg Intake: IV 200 / 200 200 / 200 615 / 615 Azactam Inj 2 GM In NS Inj 100 200 / 200 200 / 200 100 / 100 ML @ 100 mls/hr IV.SIG Q6H SHUKRI Rx#:[id number] Vancomycin Inj 1,500 MG In NS 515 / 515 Inj 500 ML @ 250 mls/hr IV.SIG Q24H SHUKRI Rx#:[id number] Oral 480 / 480 Other: # Voids 3 3 Date of Last Bowel Movement 08/16/18 Narrative: GENERAL: Alert and oriented x3. NAD SKIN: Warm and dry. Steri strips left chest wall NECK: Supple, trachea midline. No JVD. CARDIOVASCULAR: Regular rate and rhythm without murmurs, gallops, or rubs. RESPIRATORY: Breath sounds equal bilaterally. No accessory muscle use. GASTROINTESTINAL: Abdomen soft, non-tender, nondistended. MUSCULOSKELETAL: No cyanosis, or edema. BACK: Nontender without obvious deformity. No CVA tenderness. - Urinary Catheter Management Indwelling Urethral Catheter Cath placed during this visit: yes, but has since been removed by the nurse Reason for continuing: Decision to DC catheter Removal date: 08/07/18 Removal time: 18:00 Results - Labs CBC & Chem 7: 08/17/18 06:05 08/17/18 06:05 Laboratory Results - last 24 hr 08/17/18 08/17/18 06:05 06:05 WBC 14.9 H RBC 3.48 L Hgb 10.2 L Hct 30.5 L MCV 87.7 MCH 29.4 MCHC 33.5 RDW 16.6 Plt Count 185 MPV 7.7 Neut % (Auto) 72.6 H Lymph % (Auto) 19.3 [place] % (Auto) 5.7 Eos % (Auto) 1.4 Baso % (Auto) 1.0 Neut # (Auto) 10.9 H Lymph # (Auto) 2.9 [place] # (Auto) 0.8 Eos # (Auto) 0.2 Baso # (Auto) 0.1 WBC Differential . Differential Comment Auto diff final Sodium 146 H Potassium 3.4 L D Chloride 113 H Carbon Dioxide 20.6 L Anion Gap 12 BUN 23 H Creatinine 1.24 H Estimated GFR 48 L Random Glucose 92 Calcium 8.4 L Phosphorus 3.4 Albumin 3.0 L Assessment and Plan - Plan NEURO: Chronic pain Possible seizures Continue morphine 15 mg p.o. every 8 hours and as needed Valium 10 mg p.o. every 8 hours EEG only if recurrent seizures, Seizure-like activity noticed on 08/03/2018 most likely secondary to decreased perfusion RESP: Acute hypoxemic respiratory failure-improving Extubated 08/05/2018, tolerating well, DuoNeb q6 and PRN Broad spectrum ABX as below Intubated 08/03/2018 for probable seizure, altered mental status and severe cardiogenic shock PH at the time of intubation was 6.9, lactic acid was 15 Acidosis has resolved continue to wean FiO2 as tolerated Continue EzPAP, IS CV: Severe cardiogenic shock-resolved Symptomatic bradycardia with hypotension-resolved AICD malfunction/probable dislodged pacemaker lead, status post lead extraction and placement of new leads Severe lactic acidosis-resolved 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 2D echo shows tricuspid valve endocarditis, ID following-antibiotics as below CVVH started 08/03 due to severe acidosis, now transition to HD Prior ICD pocket infection in December 2017 and February 2018. Recently replaced by Dr. Cervantes. Per device rep she did not follow-up for scheduled outpatient interrogation following device placement. On admission, interrogation shows pacemaker intermittently capturing per [employer] rep. Holding spironolactone 25 mg p.o. daily in view of renal failure Status post extensive fluid resuscitation, now HD with fluid removal Essential hypertension. Holding Norvasc, restart when appropriate = 08/08. Norvasc to start tomorrow as per nephrology. = 08/09. Blood pressure a little low in the 100s systolic. Will decrease amlodipine to 5 mg daily. = 08/10. Continue to monitor. Blood sugars acceptable. = 08/12. Continue IV antibiotics as per infectious disease. Cultures negative at this time. GI: Crohn's disease Renal diet. Protonix to IV-change to PO States she is scheduled to follow-up with [facility] gastroenterology in the end of August Currently on stress dose steroids, changed to home dose of prednisone 30 mg daily = We will decrease dose of prednisone to 20 mg daily. This is above physiologic dosing. = Continue prednisone 20 mg daily. Appears to be more relaxed at this dose. 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 Hasn't followed up with gynecology in over a year. Endometriosis Beta hCG is negative. Hemoglobin is stable, can follow-up as an outpatient with gynecology. FEN/RENAL: Acute on chronic kidney disease with anuria Chronic kidney disease stage III Started on CVVH 08/03/18 due to anuria and severe metabolic acidosis CVVH changed to hemodialysis 08/04/18 as the blood pressure improved. Urine output slowly improving Nephrology Dr. Arrieta. Currently patient has a right femoral Vas-Cath. Will discuss upper body dialysis catheter placement by IR probably after HD tomorrow , and when white count is further improved Patient states she has not had renal biopsy. She has been followed by nephrology at [facility]. = Nephrology following. Appreciate assistance. Renal function improving slowly. =08/15 with anion gap metabolic acidosis, likely secondary to resolving acute kidney injury. As per nephrology. Hypokalemia Potassium replacement = 08/09. Potassium 2.5. Replaced as per protocol. Additional potassium ordered today. Nephrology following. Appreciate assistance. Follow-up tomorrow. = 08/10. Potassium 3.1. Continue daily replacement as per nephrology. Appreciate assistance. = 08/11. Potassium 3.2. Replace and monitor. = 08/12. Potassium 3.2. Replace and monitor. = 08/13. Potassium 3.3. Replace. 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 She has undergone device removal on 2 prior occasions. Most recently was removed in February 2018 with wound VAC placement. Device replaced 06/27/18. She reported fever 102.7, however she is afebrile here. Continue renally dosed vancomycin, aztreonam, Flagyl 2D echo showed tricuspid valve endocarditis 1.7 x 0.5, however blood cultures 2 sets apparently remains negative Continue medical management. Leukocytosis improving = 08/09 leukocytosis continues improving. 13.8. Continue IV antibiotics as per infectious disease. Appreciate assistance. = 08/10. Leukocytosis improving 11.3. Continue broad-spectrum IV antibiotics as per infectious disease. = 08/13. Leukocytosis of 12. Continue IV antibiotics as per infectious disease. Appreciate assistance. =08/14. Discussed infectious disease. Continue IV antibiotics. =08/15. Discussed with nursing and case management in the ER. Continue IV antibiotics as per infectious disease. IV access issues. As per infectious disease. RHEUM: Systemic lupus erythematosus On chronic steroids On chronic prednisone 30 mg p.o. daily for >2 years. In view of shock will place on hydrocortisone 100 mill grams IV every 8 hours. Hydrocortisone was reduced to 50 mg every 8 hours yesterday, restart prednisone 30 mg today and DC hydrocortisone Scheduled to follow-up with [facility] rheumatology end of August. = Blood pressure acceptable. Continue on 20 mg prednisone daily. HEME: Chronic anemia Thrombocytopenia most likely secondary to DIC/sepsis Transfuse blood and blood products as needed Transfuse 1 unit PRBC today with hemodialysis 08/06/2018 = Platelets 131. Improved. No signs of bleeding. Hemoglobin stable. ENDO: Hypothyroidism Continue Synthroid 112 mcg p.o. daily. Normal TSH. Insomnia Patient was not receiving as needed melatonin. Will make melatonin scheduled = 08/13. Patient still with poor sleep. Discussed sleep hygiene. Will add Ativan at night. =08/14. Sleep improved. Continue to monitor. Labile mood. Patient refusing to be seen by psychiatry doctor. PROPH: SCDs for DVT prophylaxis. Hold pharmacologic DVT prophylaxis at this time due to recent invasive procedure, thrombocytopenia If consistently stays above 90, place on heparin subcu Protonix 40 mg daily for stress ulcer prophylaxis. ACCESS: New right IJ central line, right radial arterial line 08/03/18- DCd right femoral Vas-Cath placed 08/03/18-removed 08/09. Discharge Planning: Continues treatment inpatient with IV antibiotics for endocarditis. We will need clearance from infectious disease, nephrology. PT following.
[2018-08-17] MEDS ORDERED: Heparin Central Flush 100 UNIT/ML 5 ML Vial IV.FLUSH ONE (16:27)
[2018-08-17] MEDS ORDERED: Iohexol 350 MG/ML 50 ML Vial (for Rad Diag) IVCONTRAST ONE (16:40)
--- NOTE | 2018-08-17 16:55 | P.RAD ---
Post PICC Progress Note - Procedure Procedure: right PICC line placement Procedure Date: 08/17/18 Supervising Radiologist: Albert Villanueva MD - Device Side: right PICC Line Length (cm): 23 (this is a midline central venous stenosis) Catheter: Power PICC - Plan of Activity Patient to Unit: Nursing Unit
[2018-08-17] MEDS: Melatonin 5 MG Tablet PO SCH (21:07)
[2018-08-17] MEDS: LORazepam 1 MG Tablet PO SCH (23:35)
[2018-08-18] MEDS: Morphine Sulfate 15 MG IR Tablet PO PRN ×3 (02:01→17:26)
[2018-08-18] MEDS: Morphine Sulfate Inj 2 MG/ML Vial IV.PUSH PRN ×3 (05:06→21:23)
[2018-08-18] MEDS: Aztreonam Inj 2 GM in Sodium Chloride 0.9% Inj 100 ML IV.SIG SCH ×4 (05:06→21:10)
[2018-08-18] MEDS: predniSONE 20 MG Tablet PO SCH (08:40)
[2018-08-18] MEDS: Senna/Docusate Sodium 8.6/50 MG Tablet PO SCH ×2 (08:40→21:09)
[2018-08-18] MEDS: amLODIPine 5 MG Tablet PO SCH (08:40)
[2018-08-18] MEDS: Pantoprazole Inj 40 MG Vial IV.PUSH SCH (08:40)
[2018-08-18] MEDS: Sodium Bicarbonate 650 MG Tablet PO SCH ×2 (08:40→21:07)
[2018-08-18] MEDS: Lisinopril 5 MG Tablet PO SCH (08:40)
[2018-08-18] MEDS: Spironolactone 25 MG Tablet PO SCH (08:40)
[2018-08-18] MEDS: Levothyroxine 112 MCG Tablet PO SCH (08:40)
--- NOTE | 2018-08-18 10:42 | P.PN ---
Subjective Interval history: She is in bed appears in not acute distress at this time. She has a midline placed. No shortness of breath or lightheadedness. No palpitations. No nausea vomiting no diarrhea constipation. Eating fairly well. Physical Exam Vital signs: Vital Signs 08/17/18 11:58 08/17/18 12:00 08/17/18 16:00 Temperature 98.4 F 98.2 F Pulse Rate 69 52 L 65 Respiratory Rate 16 18 Blood Pressure 120/55 L 99/64 L Pulse Oximetry 97 99 08/17/18 17:06 08/17/18 20:00 08/18/18 00:00 Temperature 98.5 F Pulse Rate 64 53 L Respiratory Rate 16 Blood Pressure 115/54 L Pulse Oximetry 99 98 08/18/18 04:00 08/18/18 08:00 Temperature 98.1 F Pulse Rate 49 L 71 Respiratory Rate 18 Blood Pressure 119/56 L Pulse Oximetry 100 Intake & Output 08/17/18 08/18/18 08/18/18 18:59 06:59 18:59 Intake Total 1195 / 1195 1340 / 1340 100 / 100 Balance 1195 / 1195 1340 / 1340 100 / 100 Intake: IV 715 / 715 200 / 200 100 / 100 Azactam Inj 2 GM In NS Inj 100 200 / 200 200 / 200 100 / 100 ML @ 100 mls/hr IV.SIG Q6H SHUKRI Rx#:[id number] Vancomycin Inj 1,500 MG In NS 515 / 515 Inj 500 ML @ 250 mls/hr IV.SIG Q24H SHUKRI Rx#:[id number] Oral 480 / 480 1140 / 1140 Other: # Voids 3 6 Date of Last Bowel Movement 08/17/18 Narrative: GENERAL: Alert and oriented x3. NAD SKIN: Warm and dry. Steri strips left chest wall NECK: Supple, trachea midline. No JVD. CARDIOVASCULAR: Regular rate and rhythm without murmurs, gallops, or rubs. RESPIRATORY: Breath sounds equal bilaterally. No accessory muscle use. GASTROINTESTINAL: Abdomen soft, non-tender, nondistended. MUSCULOSKELETAL: No cyanosis, or edema. BACK: Nontender without obvious deformity. No CVA tenderness. - Urinary Catheter Management Indwelling Urethral Catheter Cath placed during this visit: yes, but has since been removed by the nurse Reason for continuing: Decision to DC catheter Removal date: 08/07/18 Removal time: 18:00 Results - Labs CBC & Chem 7: 08/17/18 06:05 08/17/18 06:05 Assessment and Plan - Plan NEURO: Chronic pain Possible seizures Continue morphine 15 mg p.o. every 8 hours and as needed Valium 10 mg p.o. every 8 hours EEG only if recurrent seizures, Seizure-like activity noticed on 08/03/2018 most likely secondary to decreased perfusion RESP: Acute hypoxemic respiratory failure-improving Extubated 08/05/2018, tolerating well, DuoNeb q6 and PRN Broad spectrum ABX as below Intubated 08/03/2018 for probable seizure, altered mental status and severe cardiogenic shock PH at the time of intubation was 6.9, lactic acid was 15 Acidosis has resolved continue to wean FiO2 as tolerated Continue EzPAP, IS CV: Severe cardiogenic shock-resolved Symptomatic bradycardia with hypotension-resolved AICD malfunction/probable dislodged pacemaker lead, status post lead extraction and placement of new leads Severe lactic acidosis-resolved 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 2D echo shows tricuspid valve endocarditis, ID following-antibiotics as below CVVH started 08/03 due to severe acidosis, now transition to HD Prior ICD pocket infection in December 2017 and February 2018. Recently replaced by Dr. Cervantes. Per device rep she did not follow-up for scheduled outpatient interrogation following device placement. On admission, interrogation shows pacemaker intermittently capturing per [employer] rep. Holding spironolactone 25 mg p.o. daily in view of renal failure Status post extensive fluid resuscitation, now HD with fluid removal Essential hypertension. Holding Norvasc, restart when appropriate = 08/08. Norvasc to start tomorrow as per nephrology. = 08/09. Blood pressure a little low in the 100s systolic. Will decrease amlodipine to 5 mg daily. = 08/10. Continue to monitor. Blood sugars acceptable. = 08/12. Continue IV antibiotics as per infectious disease. Cultures negative at this time. GI: Crohn's disease Renal diet. Protonix to IV-change to PO States she is scheduled to follow-up with [facility] gastroenterology in the end of August Currently on stress dose steroids, changed to home dose of prednisone 30 mg daily = We will decrease dose of prednisone to 20 mg daily. This is above physiologic dosing. = Continue prednisone 20 mg daily. Appears to be more relaxed at this dose. 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 Hasn't followed up with gynecology in over a year. Endometriosis Beta hCG is negative. Hemoglobin is stable, can follow-up as an outpatient with gynecology. FEN/RENAL: Acute on chronic kidney disease with anuria Chronic kidney disease stage III Started on CVVH 08/03/18 due to anuria and severe metabolic acidosis CVVH changed to hemodialysis 08/04/18 as the blood pressure improved. Urine output slowly improving Nephrology Dr. Arrieta. Currently patient has a right femoral Vas-Cath. Will discuss upper body dialysis catheter placement by IR probably after HD tomorrow , and when white count is further improved Patient states she has not had renal biopsy. She has been followed by nephrology at [facility]. = Nephrology following. Appreciate assistance. Renal function improving slowly. =08/15 with anion gap metabolic acidosis, likely secondary to resolving acute kidney injury. As per nephrology. Hypokalemia Potassium replacement = 08/09. Potassium 2.5. Replaced as per protocol. Additional potassium ordered today. Nephrology following. Appreciate assistance. Follow-up tomorrow. = 08/10. Potassium 3.1. Continue daily replacement as per nephrology. Appreciate assistance. = 08/11. Potassium 3.2. Replace and monitor. = 08/12. Potassium 3.2. Replace and monitor. = 08/13. Potassium 3.3. Replace. 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 She has undergone device removal on 2 prior occasions. Most recently was removed in February 2018 with wound VAC placement. Device replaced 06/27/18. She reported fever 102.7, however she is afebrile here. Continue renally dosed vancomycin, aztreonam, Flagyl 2D echo showed tricuspid valve endocarditis 1.7 x 0.5, however blood cultures 2 sets apparently remains negative Continue medical management. Leukocytosis improving = 08/09 leukocytosis continues improving. 13.8. Continue IV antibiotics as per infectious disease. Appreciate assistance. = 08/10. Leukocytosis improving 11.3. Continue broad-spectrum IV antibiotics as per infectious disease. = 08/13. Leukocytosis of 12. Continue IV antibiotics as per infectious disease. Appreciate assistance. =08/14. Discussed infectious disease. Continue IV antibiotics. =08/15. Discussed with nursing and case management in the ER. Continue IV antibiotics as per infectious disease. IV access issues. As per infectious disease. RHEUM: Systemic lupus erythematosus On chronic steroids On chronic prednisone 30 mg p.o. daily for >2 years. In view of shock will place on hydrocortisone 100 mill grams IV every 8 hours. Hydrocortisone was reduced to 50 mg every 8 hours yesterday, restart prednisone 30 mg today and DC hydrocortisone Scheduled to follow-up with [facility] rheumatology end of August. = Blood pressure acceptable. Continue on 20 mg prednisone daily. HEME: Chronic anemia Thrombocytopenia most likely secondary to DIC/sepsis Transfuse blood and blood products as needed Transfuse 1 unit PRBC today with hemodialysis 08/06/2018 = Platelets 131. Improved. No signs of bleeding. Hemoglobin stable. ENDO: Hypothyroidism Continue Synthroid 112 mcg p.o. daily. Normal TSH. Insomnia Patient was not receiving as needed melatonin. Will make melatonin scheduled = 08/13. Patient still with poor sleep. Discussed sleep hygiene. Will add Ativan at night. =08/14. Sleep improved. Continue to monitor. Labile mood. Patient refusing to be seen by psychiatry doctor. PROPH: SCDs for DVT prophylaxis. Hold pharmacologic DVT prophylaxis at this time due to recent invasive procedure, thrombocytopenia If consistently stays above 90, place on heparin subcu Protonix 40 mg daily for stress ulcer prophylaxis. ACCESS: New right IJ central line, right radial arterial line 08/03/18- DCd right femoral Vas-Cath placed 08/03/18-removed 08/09. Discharge Planning: Continues treatment inpatient with IV antibiotics for endocarditis. We will need clearance from infectious disease, nephrology. PT following. Midline placement 08/17/18
--- NOTE | 2018-08-18 10:59 | P.PNNP ---
Subjective Interval history: Patient is alert, no SOB, eating well. Physical Exam Vital signs: Vital Signs 08/17/18 11:58 08/17/18 12:00 08/17/18 16:00 Temperature 98.4 F 98.2 F Pulse Rate 69 52 L 65 Respiratory Rate 16 18 Blood Pressure 120/55 L 99/64 L Pulse Oximetry 97 99 08/17/18 17:06 08/17/18 20:00 08/18/18 00:00 Temperature 98.5 F Pulse Rate 64 53 L Respiratory Rate 16 Blood Pressure 115/54 L Pulse Oximetry 99 98 08/18/18 04:00 08/18/18 08:00 Temperature 98.1 F Pulse Rate 49 L 71 Respiratory Rate 18 Blood Pressure 119/56 L Pulse Oximetry 100 Intake & Output 08/17/18 08/18/18 08/18/18 18:59 06:59 18:59 Intake Total 1195 / 1195 1340 / 1340 100 / 100 Balance 1195 / 1195 1340 / 1340 100 / 100 Intake: IV 715 / 715 200 / 200 100 / 100 Azactam Inj 2 GM In NS Inj 100 200 / 200 200 / 200 100 / 100 ML @ 100 mls/hr IV.SIG Q6H SHUKRI Rx#:[id number] Vancomycin Inj 1,500 MG In NS 515 / 515 Inj 500 ML @ 250 mls/hr IV.SIG Q24H SHUKRI Rx#:[id number] Oral 480 / 480 1140 / 1140 Other: # Voids 3 6 Date of Last Bowel Movement 08/17/18 Narrative: GENERAL: Alert and oriented x3. NAD SKIN: Warm and dry. Steri strips left chest wall NECK: Supple, trachea midline. No JVD. CARDIOVASCULAR: Regular rate and rhythm without murmurs, gallops, or rubs. RESPIRATORY: Breath sounds equal bilaterally. No accessory muscle use. GASTROINTESTINAL: Abdomen soft, non-tender, nondistended. MUSCULOSKELETAL: No cyanosis, or edema. BACK: Nontender without obvious deformity. No CVA tenderness. - Urinary Catheter Management Indwelling Urethral Catheter Cath placed during this visit: yes, but has since been removed by the nurse Reason for continuing: Decision to DC catheter Removal date: 08/07/18 Removal time: 18:00 Assessment and Plan - Assessment (1) Acute kidney injury superimposed on CKD Code(s): N17.9 - Acute kidney failure, unspecified; N18.9 - Chronic kidney disease, unspecified Status: Acute Plan: Patient seen and examined, agree with above. Has proteinuria of 1.6 gm, serology showing not as active lupus, Creatinine was stable. Urine out put is good. Check BMP in AM. Most likely has SHABANA due to Hypotension and ATN, with mild chronic kidney disease. (2) SLE (systemic lupus erythematosus) Code(s): M32.9 - Systemic lupus erythematosus, unspecified Status: Acute Plan: Checked for Lupus activity. DNA DS normal On prednisone (3) Hypertension Code(s): I10 - Essential (primary) hypertension Status: Acute Plan: Well controlled,will monitor (4) Endocarditis of tricuspid valve Code(s): I36.8 - Other nonrheumatic tricuspid valve disorders Status: Acute Plan: Antibiotics per ID PICC line placement - Plan l
[2018-08-18] MEDS ORDERED: Pharmacy Ordered Lab Info OTHER ONE (12:45)
[2018-08-18] MEDS: Vancomycin Inj 1,500 MG in Sodium Chlor 0.9% Inj 500 ML IV.SIG SCH (12:59)
--- NOTE | 2018-08-18 16:17 | P.PNID ---
Subjective Remarks: afebrile sp midline central venous stenosis per IR report co abd pain L chest pain improved repeat 2D echo w/o vegetation Antibiotics: vanco azactam Allergies/Adverse Reactions: Allergies cephalexin Allergy (Severe, Verified 07/13/18 17:57) RASH,SWELLING Fish Containing Products Allergy (Severe, Verified 07/13/18 17:57) SWELLING IN THROAT, SOB ketorolac Allergy (Severe, Verified 07/13/18 17:57) RASH penicillin G Allergy (Severe, Verified 07/13/18 17:57) RASH,SWELLING prochlorperazine Allergy (Mild, Verified 07/13/18 17:57) DYSTONIC REACTION promethazine Allergy (Mild, Verified 07/13/18 17:57) DYSTONIC REACTION Objective Vital Signs 08/17/18 17:06 08/17/18 20:00 08/18/18 00:00 Temperature 98.5 F Pulse Rate 64 53 L Respiratory Rate 16 Blood Pressure 115/54 L Pulse Oximetry 99 98 08/18/18 04:00 08/18/18 08:00 08/18/18 10:59 Temperature 98.1 F Pulse Rate 49 L 55 L Respiratory Rate 18 Blood Pressure 119/56 L Pulse Oximetry 100 100 08/18/18 12:00 Temperature 98.9 F Pulse Rate 52 L Respiratory Rate 18 Blood Pressure 113/56 L Pulse Oximetry 99 Intake & Output 08/17/18 08/18/18 08/18/18 18:59 06:59 18:59 Intake Total 1195 / 1195 1340 / 1340 715 / 715 Balance 1195 / 1195 1340 / 1340 715 / 715 Intake: IV 715 / 715 200 / 200 715 / 715 Azactam Inj 2 GM In NS Inj 100 200 / 200 200 / 200 200 / 200 ML @ 100 mls/hr IV.SIG Q6H SHUKRI Rx#:[id number] Vancomycin Inj 1,500 MG In NS 515 / 515 515 / 515 Inj 500 ML @ 250 mls/hr IV.SIG Q24H SHUKRI Rx#:[id number] Oral 480 / 480 1140 / 1140 Other: # Voids 3 6 Date of Last Bowel Movement 08/17/18 Lab - Hematology Results 08/17/18 06:05 WBC 14.9 H RBC 3.48 L Hgb 10.2 L Hct 30.5 L MCV 87.7 MCH 29.4 MCHC 33.5 RDW 16.6 Plt Count 185 MPV 7.7 Neut % (Auto) 72.6 H Lymph % (Auto) 19.3 [place] % (Auto) 5.7 Eos % (Auto) 1.4 Baso % (Auto) 1.0 Neut # (Auto) 10.9 H Lymph # (Auto) 2.9 [place] # (Auto) 0.8 Eos # (Auto) 0.2 Baso # (Auto) 0.1 WBC Differential . Differential Comment Auto diff final Lab - Chemistry Results 08/17/18 06:05 Sodium 146 H Potassium 3.4 L D Chloride 113 H Carbon Dioxide 20.6 L Anion Gap 12 BUN 23 H Creatinine 1.24 H Estimated GFR 48 L Random Glucose 92 Calcium 8.4 L Phosphorus 3.4 Albumin 3.0 L Imaging: ITS Impressions Chest X-Ray 08/08/18 06:00 CONCLUSION: 1. No significant interval change. 2. Stable bilateral lower lung zone airspace disease and likely trace pleural effusion. Physical Exam: GENERAL: NAD SKIN: Warm and dry. NO rash HEAD: Atraumatic. Normocephalic. EYES: Pupils equal and round. No scleral icterus. No injection or drainage. ENT: No nasal bleeding or discharge. Mucous membranes pink and moist. CARDIOVASCULAR: Regular rate and rhythm. + Murmur L sternal upper border L chest incision dry, clean not tender stirry strips i place RESPIRATORY: No accessory muscle use. Clear to auscultation. Breath sounds equal bilaterally. GASTROINTESTINAL: Abdomen soft, mildly tender, nondistended. MUSCULOSKELETAL: Extremities without clubbing, cyanosis, or edema. NEUROLOGICAL: Awake and alert. Non focal Normal speech. 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 negative bartonella, coxiella serologies sp lead revision last clx from April Proteus, prior to that MSSA, MRSA Report of high grade fever @ home is concerning for underlying infection AICD infection : pt with history of multiple previous pacer infections including MSSA, MRSA and Proteus Pacer/AICD depended - removal of pacer not an option - jeanna Torres Persistent leukocytosis: improving PLAN: cont azactam x 6ks azactam potensitlly can be switched to oral levaquine cont Vanco will Rx x 6 weeks (thru 09/17) fu WBC chk stool for c.diff jeanna Shay
[2018-08-18] MEDS: LORazepam 1 MG Tablet PO SCH (21:07)
[2018-08-18] MEDS: Melatonin 5 MG Tablet PO SCH (21:08)
[2018-08-19] MEDS: Morphine Sulfate 15 MG IR Tablet PO PRN ×3 (01:24→17:43)
[2018-08-19] MEDS: Aztreonam Inj 2 GM in Sodium Chloride 0.9% Inj 100 ML IV.SIG SCH ×4 (04:03→22:45)
[2018-08-19] MEDS: Morphine Sulfate Inj 2 MG/ML Vial IV.PUSH PRN ×3 (04:03→20:26)
[2018-08-19 06:31] LABS: Calcium 8.1 mg/dL (8.5-10.1); Carbon Dioxide 20.7 meq/L (21.0-32.0); Potassium 3.5 meq/L (3.5-5.1)
[2018-08-19] MEDS: Levothyroxine 112 MCG Tablet PO SCH (09:26)
[2018-08-19] MEDS: Lisinopril 5 MG Tablet PO SCH (09:26)
[2018-08-19] MEDS: Pantoprazole Inj 40 MG Vial IV.PUSH SCH (09:26)
[2018-08-19] MEDS: Sodium Bicarbonate 650 MG Tablet PO SCH ×2 (09:26→20:26)
[2018-08-19] MEDS: amLODIPine 5 MG Tablet PO SCH (09:26)
[2018-08-19] MEDS: predniSONE 20 MG Tablet PO SCH (09:26)
[2018-08-19] MEDS: Spironolactone 25 MG Tablet PO SCH (09:27)
[2018-08-19] MEDS: Senna/Docusate Sodium 8.6/50 MG Tablet PO SCH ×2 (09:30→20:26)
--- NOTE | 2018-08-19 10:51 | P.PNNP ---
Subjective Interval history: Patient is alert, no SOB, remain afebrile. Physical Exam Vital signs: Vital Signs 08/18/18 10:59 08/18/18 12:00 08/18/18 16:00 Temperature 98.9 F 97.9 F Pulse Rate 52 L 52 L Respiratory Rate 18 18 Blood Pressure 113/56 L 132/56 L Pulse Oximetry 100 99 99 08/18/18 17:28 08/18/18 20:00 08/19/18 00:00 Temperature 98.7 F 98.2 F Pulse Rate 65 37 L Respiratory Rate 16 15 Blood Pressure 120/66 142/65 H Pulse Oximetry 99 98 100 08/19/18 03:58 08/19/18 04:00 08/19/18 08:00 Temperature 98.4 F 97.6 F Pulse Rate 71 50 L 76 Respiratory Rate 16 23 Blood Pressure 116/55 L 107/61 Pulse Oximetry 97 99 Intake & Output 08/18/18 08/19/18 08/19/18 18:59 06:59 18:59 Intake Total 3115 / 3115 630 / 630 Balance 3115 / 3115 630 / 630 Weight 79.7 kg Intake: IV 715 / 715 210 / 210 Azactam Inj 2 GM In NS Inj 100 200 / 200 210 / 210 ML @ 100 mls/hr IV.SIG Q6H SHUKRI Rx#:[id number] Vancomycin Inj 1,500 MG In NS 515 / 515 Inj 500 ML @ 250 mls/hr IV.SIG Q24H SHUKRI Rx#:[id number] Oral 2400 / 2400 420 / 420 Other: # Voids 10 3 Date of Last Bowel Movement 08/18/18 # Bowel Movements 0 Narrative: GENERAL: Alert and oriented x3. NAD SKIN: Warm and dry. Steri strips left chest wall NECK: Supple, trachea midline. No JVD. CARDIOVASCULAR: Regular rate and rhythm without murmurs, gallops, or rubs. RESPIRATORY: Breath sounds equal bilaterally. No accessory muscle use. GASTROINTESTINAL: Abdomen soft, non-tender, nondistended. Positive bowel sounds MUSCULOSKELETAL: No cyanosis, or edema. BACK: Nontender without obvious deformity. No CVA tenderness. - Urinary Catheter Management Indwelling Urethral Catheter Cath placed during this visit: yes, but has since been removed by the nurse Reason for continuing: Decision to DC catheter Removal date: 08/07/18 Removal time: 18:00 Assessment and Plan - Assessment (1) Acute kidney injury superimposed on CKD Code(s): N17.9 - Acute kidney failure, unspecified; N18.9 - Chronic kidney disease, unspecified Status: Acute Plan: Patient seen and examined, agree with above. Has proteinuria of 1.6 gm, serology showing not as active lupus, Creatinine was stable. Urine out put is good. Check BMP in AM. Most likely has SHABANA due to Hypotension and ATN, with mild chronic kidney disease. Creatinine is stable. Continue antibiotics. (2) SLE (systemic lupus erythematosus) Code(s): M32.9 - Systemic lupus erythematosus, unspecified Status: Acute Plan: Checked for Lupus activity. DNA DS normal On prednisone (3) Hypertension Code(s): I10 - Essential (primary) hypertension Status: Acute Plan: Well controlled,will monitor (4) Endocarditis of tricuspid valve Code(s): I36.8 - Other nonrheumatic tricuspid valve disorders Status: Acute Plan: Antibiotics per ID PICC line placement - Plan l
[2018-08-19] MEDS: Vancomycin Inj 1,500 MG in Sodium Chlor 0.9% Inj 500 ML IV.SIG SCH (13:38)
--- NOTE | 2018-08-19 16:30 | P.PN ---
Subjective Interval history: The patient is in bed she appears tired. Says she feels weak today however she is able to ambulate. No fever or chills overnight. No nausea or vomiting eating fairly well. Physical Exam Vital signs: Vital Signs 08/18/18 17:28 08/18/18 20:00 08/19/18 00:00 Temperature 98.7 F 98.2 F Pulse Rate 65 37 L Respiratory Rate 16 15 Blood Pressure 120/66 142/65 H Pulse Oximetry 99 98 100 08/19/18 03:58 08/19/18 04:00 08/19/18 08:00 Temperature 98.4 F 97.6 F Pulse Rate 71 50 L 76 Respiratory Rate 16 23 Blood Pressure 116/55 L 107/61 Pulse Oximetry 97 99 08/19/18 11:22 08/19/18 12:00 Temperature 98.8 F Pulse Rate 62 Respiratory Rate 23 Blood Pressure 108/54 L Pulse Oximetry 99 99 Intake & Output 08/18/18 08/19/18 08/19/18 18:59 06:59 18:59 Intake Total 3115 / 3115 630 / 630 Balance 3115 / 3115 630 / 630 Weight 79.7 kg Intake: IV 715 / 715 210 / 210 Azactam Inj 2 GM In NS Inj 100 200 / 200 210 / 210 ML @ 100 mls/hr IV.SIG Q6H SHURKI Rx#:[id number] Vancomycin Inj 1,500 MG In NS 515 / 515 Inj 500 ML @ 250 mls/hr IV.SIG Q24H SHUKRI Rx#:[id number] Oral 2400 / 2400 420 / 420 Other: # Voids 10 3 Date of Last Bowel Movement 08/18/18 # Bowel Movements 0 Narrative: GENERAL: Alert and oriented x3. NAD SKIN: Warm and dry. Steri strips left chest wall NECK: Supple, trachea midline. No JVD. CARDIOVASCULAR: Regular rate and rhythm without murmurs, gallops, or rubs. RESPIRATORY: Breath sounds equal bilaterally. No accessory muscle use. GASTROINTESTINAL: Abdomen soft, non-tender, nondistended. MUSCULOSKELETAL: No cyanosis, or edema. BACK: Nontender without obvious deformity. No CVA tenderness. - Urinary Catheter Management Indwelling Urethral Catheter Cath placed during this visit: yes, but has since been removed by the nurse Reason for continuing: Decision to DC catheter Removal date: 08/07/18 Removal time: 18:00 Results - Labs CBC & Chem 7: 08/17/18 06:05 08/19/18 05:30 Laboratory Results - last 24 hr 08/19/18 05:30 Sodium 144 Potassium 3.5 Chloride 115 H Carbon Dioxide 20.7 L Anion Gap 8 BUN 23 H Creatinine 1.16 H Estimated GFR 51 L Random Glucose 83 Calcium 8.1 L Assessment and Plan - Plan NEURO: Chronic pain Possible seizures Continue morphine 15 mg p.o. every 8 hours and as needed Valium 10 mg p.o. every 8 hours EEG only if recurrent seizures, Seizure-like activity noticed on 08/03/2018 most likely secondary to decreased perfusion RESP: Acute hypoxemic respiratory failure-improving Extubated 08/05/2018, tolerating well, DuoNeb q6 and PRN Broad spectrum ABX as below Intubated 08/03/2018 for probable seizure, altered mental status and severe cardiogenic shock PH at the time of intubation was 6.9, lactic acid was 15 Acidosis has resolved continue to wean FiO2 as tolerated Continue EzPAP, IS CV: Severe cardiogenic shock-resolved Symptomatic bradycardia with hypotension-resolved AICD malfunction/probable dislodged pacemaker lead, status post lead extraction and placement of new leads Severe lactic acidosis-resolved 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 2D echo shows tricuspid valve endocarditis, ID following-antibiotics as below CVVH started 08/03 due to severe acidosis, now transition to HD Prior ICD pocket infection in December 2017 and February 2018. Recently replaced by Dr. Cervantes. Per device rep she did not follow-up for scheduled outpatient interrogation following device placement. On admission, interrogation shows pacemaker intermittently capturing per [employer] rep. Holding spironolactone 25 mg p.o. daily in view of renal failure Status post extensive fluid resuscitation, now HD with fluid removal Essential hypertension. Holding Norvasc, restart when appropriate = 08/08. Norvasc to start tomorrow as per nephrology. = 08/09. Blood pressure a little low in the 100s systolic. Will decrease amlodipine to 5 mg daily. = 08/10. Continue to monitor. Blood sugars acceptable. = 08/12. Continue IV antibiotics as per infectious disease. Cultures negative at this time. GI: Crohn's disease Renal diet. Protonix to IV-change to PO States she is scheduled to follow-up with [facility] gastroenterology in the end of August Currently on stress dose steroids, changed to home dose of prednisone 30 mg daily = We will decrease dose of prednisone to 20 mg daily. This is above physiologic dosing. = Continue prednisone 20 mg daily. Appears to be more relaxed at this dose. 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 Hasn't followed up with gynecology in over a year. Endometriosis Beta hCG is negative. Hemoglobin is stable, can follow-up as an outpatient with gynecology. FEN/RENAL: Acute on chronic kidney disease with anuria Chronic kidney disease stage III Started on CVVH 08/03/18 due to anuria and severe metabolic acidosis CVVH changed to hemodialysis 08/04/18 as the blood pressure improved. Urine output slowly improving Nephrology Dr. Arreita. Currently patient has a right femoral Vas-Cath. Will discuss upper body dialysis catheter placement by IR probably after HD tomorrow , and when white count is further improved Patient states she has not had renal biopsy. She has been followed by nephrology at [facility]. = Nephrology following. Appreciate assistance. Renal function improving slowly. =08/15 with anion gap metabolic acidosis, likely secondary to resolving acute kidney injury. As per nephrology. Hypokalemia Potassium replacement = 08/09. Potassium 2.5. Replaced as per protocol. Additional potassium ordered today. Nephrology following. Appreciate assistance. Follow-up tomorrow. = 08/10. Potassium 3.1. Continue daily replacement as per nephrology. Appreciate assistance. = 08/11. Potassium 3.2. Replace and monitor. = 08/12. Potassium 3.2. Replace and monitor. = 08/13. Potassium 3.3. Replace. 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 She has undergone device removal on 2 prior occasions. Most recently was removed in February 2018 with wound VAC placement. Device replaced 06/27/18. She reported fever 102.7, however she is afebrile here. Continue renally dosed vancomycin, aztreonam, Flagyl 2D echo showed tricuspid valve endocarditis 1.7 x 0.5, however blood cultures 2 sets apparently remains negative Continue medical management. Leukocytosis improving = 08/09 leukocytosis continues improving. 13.8. Continue IV antibiotics as per infectious disease. Appreciate assistance. = 08/10. Leukocytosis improving 11.3. Continue broad-spectrum IV antibiotics as per infectious disease. = 08/13. Leukocytosis of 12. Continue IV antibiotics as per infectious disease. Appreciate assistance. =08/14. Discussed infectious disease. Continue IV antibiotics. =08/15. Discussed with nursing and case management in the ER. Continue IV antibiotics as per infectious disease. IV access issues. As per infectious disease. RHEUM: Systemic lupus erythematosus On chronic steroids On chronic prednisone 30 mg p.o. daily for >2 years. In view of shock will place on hydrocortisone 100 mill grams IV every 8 hours. Hydrocortisone was reduced to 50 mg every 8 hours yesterday, restart prednisone 30 mg today and DC hydrocortisone Scheduled to follow-up with [facility] rheumatology end of August. = Blood pressure acceptable. Continue on 20 mg prednisone daily. HEME: Chronic anemia Thrombocytopenia most likely secondary to DIC/sepsis Transfuse blood and blood products as needed Transfuse 1 unit PRBC today with hemodialysis 08/06/2018 = Platelets 131. Improved. No signs of bleeding. Hemoglobin stable. ENDO: Hypothyroidism Continue Synthroid 112 mcg p.o. daily. Normal TSH. Insomnia Patient was not receiving as needed melatonin. Will make melatonin scheduled = 08/13. Patient still with poor sleep. Discussed sleep hygiene. Will add Ativan at night. =08/14. Sleep improved. Continue to monitor. Labile mood. Patient refusing to be seen by psychiatry doctor. PROPH: SCDs for DVT prophylaxis. Hold pharmacologic DVT prophylaxis at this time due to recent invasive procedure, thrombocytopenia If consistently stays above 90, place on heparin subcu Protonix 40 mg daily for stress ulcer prophylaxis. ACCESS: New right IJ central line, right radial arterial line 08/03/18- DCd right femoral Vas-Cath placed 08/03/18-removed 08/09. Discharge Planning: Continues treatment inpatient with IV antibiotics for endocarditis. We will need clearance from infectious disease, nephrology. PT following. Midline placement 08/17/18
[2018-08-19] MEDS: Melatonin 5 MG Tablet PO SCH (20:25)
[2018-08-19] MEDS: LORazepam 1 MG Tablet PO SCH (20:25)
[2018-08-20] MEDS: Morphine Sulfate 15 MG IR Tablet PO PRN ×3 (01:40→18:26)
[2018-08-20] MEDS: Aztreonam Inj 2 GM in Sodium Chloride 0.9% Inj 100 ML IV.SIG SCH ×4 (04:47→22:05)
[2018-08-20] MEDS: Morphine Sulfate Inj 2 MG/ML Vial IV.PUSH PRN ×3 (05:56→22:04)
[2018-08-20] MEDS: amLODIPine 5 MG Tablet PO SCH (10:08)
[2018-08-20] MEDS: Sodium Bicarbonate 650 MG Tablet PO SCH ×2 (10:08→22:06)
[2018-08-20] MEDS: Lisinopril 5 MG Tablet PO SCH (10:08)
[2018-08-20] MEDS: predniSONE 20 MG Tablet PO SCH (10:08)
[2018-08-20] MEDS: Spironolactone 25 MG Tablet PO SCH (10:09)
[2018-08-20] MEDS: Levothyroxine 112 MCG Tablet PO SCH (10:09)
[2018-08-20] MEDS: Pantoprazole Inj 40 MG Vial IV.PUSH SCH (10:09)
[2018-08-20] MEDS: Senna/Docusate Sodium 8.6/50 MG Tablet PO SCH ×2 (10:10→22:06)
--- NOTE | 2018-08-20 11:50 | P.PN ---
Subjective Interval history: Was ambulating today. Says she feels tired. 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 She is also reporting some blood in the urine not sure if her menstrual cycle is started. No nausea or vomiting no diarrhea or constipation. No other complaints at this time. Physical Exam Vital signs: Vital Signs 08/19/18 12:00 08/19/18 16:00 08/19/18 20:00 Temperature 98.8 F 98.8 F 98 F Pulse Rate 62 58 L 70 Respiratory Rate 23 23 16 Blood Pressure 108/54 L 133/63 119/56 L Pulse Oximetry 99 100 97 08/20/18 00:00 08/20/18 04:00 08/20/18 08:00 Temperature 98.4 F 98.4 F Pulse Rate 69 57 L 55 L Respiratory Rate 18 14 Blood Pressure 123/60 132/62 Pulse Oximetry 98 99 08/20/18 11:02 Temperature Pulse Rate Respiratory Rate Blood Pressure Pulse Oximetry 98 Intake & Output 08/19/18 08/20/18 08/20/18 18:59 06:59 18:59 Intake Total 1675 / 1675 700 / 700 100 / 100 Balance 1675 / 1675 700 / 700 100 / 100 Weight 78.7 kg Intake: IV 715 / 715 220 / 220 100 / 100 Azactam Inj 2 GM In NS Inj 100 200 / 200 220 / 220 100 / 100 ML @ 100 mls/hr IV.SIG Q6H SHUKRI Rx#:[id number] Vancomycin Inj 1,500 MG In NS 515 / 515 Inj 500 ML @ 250 mls/hr IV.SIG Q24H SHUKRI Rx#:[id number] Oral 960 / 960 480 / 480 Other: # Voids 4 3 Date of Last Bowel Movement 08/19/18 Narrative: GENERAL: Alert and oriented x3. NAD SKIN: Warm and dry. Steri strips left chest wall NECK: Supple, trachea midline. No JVD. CARDIOVASCULAR: Regular rate and rhythm without murmurs, gallops, or rubs. RESPIRATORY: Breath sounds equal bilaterally. No accessory muscle use. GASTROINTESTINAL: Abdomen soft, non-tender, nondistended. MUSCULOSKELETAL: No cyanosis, or edema. BACK: Nontender without obvious deformity. No CVA tenderness. - Urinary Catheter Management Indwelling Urethral Catheter Cath placed during this visit: yes, but has since been removed by the nurse Reason for continuing: Decision to DC catheter Removal date: 08/07/18 Removal time: 18:00 Results - Labs CBC & Chem 7: 08/17/18 06:05 08/19/18 05:30 Assessment and Plan - Plan NEURO: Chronic pain Possible seizures Continue morphine 15 mg p.o. every 8 hours and as needed Valium 10 mg p.o. every 8 hours EEG only if recurrent seizures, Seizure-like activity noticed on 08/03/2018 most likely secondary to decreased perfusion RESP: Acute hypoxemic respiratory failure-improving Extubated 08/05/2018, tolerating well, DuoNeb q6 and PRN Broad spectrum ABX as below Intubated 08/03/2018 for probable seizure, altered mental status and severe cardiogenic shock PH at the time of intubation was 6.9, lactic acid was 15 Acidosis has resolved continue to wean FiO2 as tolerated Continue EzPAP, IS CV: Severe cardiogenic shock-resolved Symptomatic bradycardia with hypotension-resolved AICD malfunction/probable dislodged pacemaker lead, status post lead extraction and placement of new leads Severe lactic acidosis-resolved 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 2D echo shows tricuspid valve endocarditis, ID following-antibiotics as below CVVH started 08/03 due to severe acidosis, now transition to HD Prior ICD pocket infection in December 2017 and February 2018. Recently replaced by Dr. Cervantes. Per device rep she did not follow-up for scheduled outpatient interrogation following device placement. On admission, interrogation shows pacemaker intermittently capturing per [employer] rep. Holding spironolactone 25 mg p.o. daily in view of renal failure Status post extensive fluid resuscitation, now HD with fluid removal Essential hypertension. Holding Norvasc, restart when appropriate = 08/08. Norvasc to start tomorrow as per nephrology. = 08/09. Blood pressure a little low in the 100s systolic. Will decrease amlodipine to 5 mg daily. = 08/10. Continue to monitor. Blood sugars acceptable. = 08/12. Continue IV antibiotics as per infectious disease. Cultures negative at this time. GI: Crohn's disease Renal diet. Protonix to IV-change to PO States she is scheduled to follow-up with [facility] gastroenterology in the end of August Currently on stress dose steroids, changed to home dose of prednisone 30 mg daily = We will decrease dose of prednisone to 20 mg daily. This is above physiologic dosing. = Continue prednisone 20 mg daily. Appears to be more relaxed at this dose. 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 Hasn't followed up with gynecology in over a year. Endometriosis Beta hCG is negative. Hemoglobin is stable, can follow-up as an outpatient with gynecology. FEN/RENAL: Acute on chronic kidney disease with anuria Chronic kidney disease stage III Started on CVVH 08/03/18 due to anuria and severe metabolic acidosis CVVH changed to hemodialysis 08/04/18 as the blood pressure improved. Urine output slowly improving Nephrology Dr. Arrieta. Currently patient has a right femoral Vas-Cath. Will discuss upper body dialysis catheter placement by IR probably after HD tomorrow , and when white count is further improved Patient states she has not had renal biopsy. She has been followed by nephrology at [facility]. = Nephrology following. Appreciate assistance. Renal function improving slowly. =08/15 with anion gap metabolic acidosis, likely secondary to resolving acute kidney injury. As per nephrology. Hypokalemia Potassium replacement = 08/09. Potassium 2.5. Replaced as per protocol. Additional potassium ordered today. Nephrology following. Appreciate assistance. Follow-up tomorrow. = 08/10. Potassium 3.1. Continue daily replacement as per nephrology. Appreciate assistance. = 08/11. Potassium 3.2. Replace and monitor. = 08/12. Potassium 3.2. Replace and monitor. = 08/13. Potassium 3.3. Replace. 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 She has undergone device removal on 2 prior occasions. Most recently was removed in February 2018 with wound VAC placement. Device replaced 06/27/18. She reported fever 102.7, however she is afebrile here. Continue renally dosed vancomycin, aztreonam, Flagyl 2D echo showed tricuspid valve endocarditis 1.7 x 0.5, however blood cultures 2 sets apparently remains negative Continue medical management. Leukocytosis improving = 08/09 leukocytosis continues improving. 13.8. Continue IV antibiotics as per infectious disease. Appreciate assistance. = 08/10. Leukocytosis improving 11.3. Continue broad-spectrum IV antibiotics as per infectious disease. = 08/13. Leukocytosis of 12. Continue IV antibiotics as per infectious disease. Appreciate assistance. =08/14. Discussed infectious disease. Continue IV antibiotics. =08/15. Discussed with nursing and case management in the ER. Continue IV antibiotics as per infectious disease. IV access issues. As per infectious disease. RHEUM: Systemic lupus erythematosus On chronic steroids On chronic prednisone 30 mg p.o. daily for >2 years. In view of shock will place on hydrocortisone 100 mill grams IV every 8 hours. Hydrocortisone was reduced to 50 mg every 8 hours yesterday, restart prednisone 30 mg today and DC hydrocortisone Scheduled to follow-up with [facility] rheumatology end of August. = Blood pressure acceptable. Continue on 20 mg prednisone daily. HEME: Chronic anemia Thrombocytopenia most likely secondary to DIC/sepsis Transfuse blood and blood products as needed Transfuse 1 unit PRBC today with hemodialysis 08/06/2018 = Platelets 131. Improved. No signs of bleeding. Hemoglobin stable. ENDO: Hypothyroidism Continue Synthroid 112 mcg p.o. daily. Normal TSH. Insomnia Patient was not receiving as needed melatonin. Will make melatonin scheduled = 08/13. Patient still with poor sleep. Discussed sleep hygiene. Will add Ativan at night. =08/14. Sleep improved. Continue to monitor. Labile mood. Patient refusing to be seen by psychiatry doctor. PROPH: SCDs for DVT prophylaxis. Hold pharmacologic DVT prophylaxis at this time due to recent invasive procedure, thrombocytopenia If consistently stays above 90, place on heparin subcu Protonix 40 mg daily for stress ulcer prophylaxis. ACCESS: New right IJ central line, right radial arterial line 08/03/18- DCd right femoral Vas-Cath placed 08/03/18-removed 08/09. Discharge Planning: Continues treatment inpatient with IV antibiotics for endocarditis. We will need clearance from infectious disease, nephrology. PT following. Midline placement 08/17/18 Was blood in the urine per patient will order UA. Possible patient is menstruating at this time
[2018-08-20] MEDS: Vancomycin Inj 1,500 MG in Sodium Chlor 0.9% Inj 500 ML IV.SIG SCH (12:44)
--- NOTE | 2018-08-20 15:23 | P.PNNP ---
Subjective Interval history: Resting on left side. Reports shortness of breath on exertion and chest discomfort at incision site. Denies any nausea or vomiting. <Cher Freeman - Last Filed: 08/20/18 15:18> Physical Exam Vital signs: Vital Signs 08/19/18 16:00 08/19/18 20:00 08/20/18 00:00 Temperature 98.8 F 98 F 98.4 F Pulse Rate 58 L 70 69 Respiratory Rate 23 16 18 Blood Pressure 133/63 119/56 L 123/60 Pulse Oximetry 100 97 98 08/20/18 04:00 08/20/18 08:00 08/20/18 11:02 Temperature 98.4 F 98.4 F Pulse Rate 57 L 90 Respiratory Rate 14 16 Blood Pressure 132/62 128/74 Pulse Oximetry 99 98 98 08/20/18 12:00 Temperature 98.5 F Pulse Rate 90 Respiratory Rate 17 Blood Pressure 108/59 L Pulse Oximetry 97 Intake & Output 08/19/18 08/20/18 08/20/18 18:59 06:59 18:59 Intake Total 1675 / 1675 700 / 700 100 / 100 Balance 1675 / 1675 700 / 700 100 / 100 Weight 78.7 kg Intake: IV 715 / 715 220 / 220 100 / 100 Azactam Inj 2 GM In NS Inj 100 200 / 200 220 / 220 100 / 100 ML @ 100 mls/hr IV.SIG Q6H SHUKRI Rx#:[id number] Vancomycin Inj 1,500 MG In NS 515 / 515 Inj 500 ML @ 250 mls/hr IV.SIG Q24H SHUKRI Rx#:[id number] Oral 960 / 960 480 / 480 Other: # Voids 4 3 Date of Last Bowel Movement 08/19/18 Narrative: GENERAL: Alert and oriented x3. NAD SKIN: Warm and dry. Steri strips left chest wall NECK: Supple, trachea midline. No JVD. CARDIOVASCULAR: Regular rate and rhythm without murmurs, gallops, or rubs. RESPIRATORY: Breath sounds equal bilaterally. No accessory muscle use. GASTROINTESTINAL: Abdomen soft, non-tender, nondistended. Positive bowel sounds MUSCULOSKELETAL: No cyanosis, or edema. BACK: Nontender without obvious deformity. No CVA tenderness. - Urinary Catheter Management Indwelling Urethral Catheter Cath placed during this visit: yes, but has since been removed by the nurse Reason for continuing: Decision to DC catheter Removal date: 08/07/18 Removal time: 18:00 <Cher Freeman - Last Filed: 08/20/18 15:18> Vital signs: Vital Signs 08/22/18 23:03 08/22/18 23:55 08/23/18 03:55 Temperature 97.1 F L Pulse Rate 66 62 52 L Respiratory Rate 14 Blood Pressure 109/53 L Pulse Oximetry 98 08/23/18 04:00 08/23/18 08:00 08/23/18 12:00 Temperature 97.8 F 98.1 F 98.7 F Pulse Rate 53 L 61 73 Respiratory Rate 14 15 18 Blood Pressure 120/58 L 120/56 L 118/64 Pulse Oximetry 98 99 99 08/23/18 16:00 08/23/18 20:00 Temperature 98.9 F 98.3 F Pulse Rate 58 L 51 L Respiratory Rate 18 16 Blood Pressure 131/59 L 150/76 H Pulse Oximetry 97 98 Intake & Output 08/23/18 08/23/18 08/24/18 06:59 18:59 06:59 Intake Total 690 / 690 780 / 780 615 / 615 Output Total 700 / 700 1500 / 1500 Balance -10 / -10 -720 / -720 615 / 615 Weight 77.2 kg Intake: IV 210 / 210 100 / 100 615 / 615 Azactam Inj 2 GM In NS Inj 100 210 / 210 100 / 100 100 / 100 ML @ 100 mls/hr IV.SIG Q6H SHUKRI Rx#:[id number] Vancomycin Inj 1,500 MG In NS 515 / 515 Inj 500 ML @ 250 mls/hr IV.SIG Q24H SHUKRI Rx#:[id number] Oral 480 / 480 680 / 680 Output: Urine 700 / 700 1500 / 1500 Other: Date of Last Bowel Movement 08/22/18 # Bowel Movements 0 - Urinary Catheter Management Indwelling Urethral Catheter Cath placed during this visit: no <Slim Arrieta - Last Filed: 08/23/18 21:38> Assessment and Plan - Assessment (1) Acute kidney injury superimposed on CKD Code(s): N17.9 - Acute kidney failure, unspecified; N18.9 - Chronic kidney disease, unspecified Status: Acute Plan: Acute kidney injury with history of chronic kidney disease SHABANA most likely due to hypotension and ATN, unlikely lupus Nephritis Initially started on CCRT 08/03, Then had hemodialysis on and with last hemodialysis on 08/06 24 hour urine with 1.6 grams of protein. Complements normal, Anti DNA normal Creatinine stable Plan Avoid nephrotoxins and dye studies Follow urinary output and BMP. Renal panel ordered for AM (2) SLE (systemic lupus erythematosus) Code(s): M32.9 - Systemic lupus erythematosus, unspecified Status: Acute Plan: Checked for Lupus activity. DNA DS normal On prednisone (3) Hypertension Code(s): I10 - Essential (primary) hypertension Status: Acute Plan: Well controlled,will monitor (4) Endocarditis of tricuspid valve Code(s): I36.8 - Other nonrheumatic tricuspid valve disorders Status: Acute Plan: Antibiotics per ID PICC line placement <Cher Freeman - Last Filed: 08/20/18 15:18> - Assessment (1) Acute kidney injury superimposed on CKD Code(s): N17.9 - Acute kidney failure, unspecified; N18.9 - Chronic kidney disease, unspecified Status: Acute Plan: Patient seen and examined, agree with above. Creatinine is stable. Has 1.6 gm of proteinuria. (2) SLE (systemic lupus erythematosus) Code(s): M32.9 - Systemic lupus erythematosus, unspecified Status: Acute (3) Hypertension Code(s): I10 - Essential (primary) hypertension Status: Acute (4) Endocarditis of tricuspid valve Code(s): I36.8 - Other nonrheumatic tricuspid valve disorders Status: Acute <Slim Arrieta - Last Filed: 08/23/18 21:38>
[2018-08-20] MEDS: Melatonin 5 MG Tablet PO SCH (22:05)
[2018-08-20] MEDS: LORazepam 1 MG Tablet PO SCH (22:06)
[2018-08-21] MEDS: Morphine Sulfate 15 MG IR Tablet PO PRN ×3 (02:46→19:59)
[2018-08-21] MEDS: Levothyroxine 112 MCG Tablet PO SCH (06:17)
[2018-08-21] MEDS: Morphine Sulfate Inj 2 MG/ML Vial IV.PUSH PRN ×3 (06:17→22:58)
[2018-08-21] MEDS: Aztreonam Inj 2 GM in Sodium Chloride 0.9% Inj 100 ML IV.SIG SCH ×4 (06:18→21:43)
[2018-08-21] MEDS: Spironolactone 25 MG Tablet PO SCH (09:21)
[2018-08-21] MEDS: Sodium Bicarbonate 650 MG Tablet PO SCH ×2 (09:21→21:43)
[2018-08-21] MEDS: Lisinopril 5 MG Tablet PO SCH (09:22)
[2018-08-21] MEDS: Senna/Docusate Sodium 8.6/50 MG Tablet PO SCH ×2 (09:22→21:44)
[2018-08-21] MEDS: predniSONE 20 MG Tablet PO SCH (09:22)
[2018-08-21] MEDS: amLODIPine 5 MG Tablet PO SCH (09:22)
[2018-08-21] MEDS: Pantoprazole Inj 40 MG Vial IV.PUSH SCH (09:24)
[2018-08-21] MEDS ORDERED: Pharmacy Ordered Lab Info OTHER ONE (12:45)
--- NOTE | 2018-08-21 13:35 | P.PNNP ---
Subjective Interval history: Reports that she is not sleeping well. Has some shortness of breath and chest discomfort when sleeping on left side at pacemaker site. <Cher Freeman - Last Filed: 08/21/18 13:30> Physical Exam Vital signs: Vital Signs 08/20/18 16:00 08/20/18 20:00 08/21/18 00:00 Temperature 97.8 F 99.2 F Pulse Rate 60 80 49 L Respiratory Rate 17 18 18 Blood Pressure 115/56 L 122/63 Pulse Oximetry 98 98 08/21/18 04:00 08/21/18 08:00 08/21/18 12:00 Temperature 98.5 F 98.4 F Pulse Rate 55 L 49 L 72 Respiratory Rate 18 20 Blood Pressure 108/54 L 104/53 L Pulse Oximetry 100 100 Intake & Output 08/20/18 08/21/18 08/21/18 18:59 06:59 18:59 Intake Total 1555 / 1555 1080 / 1080 200 / 200 Balance 1555 / 1555 1080 / 1080 200 / 200 Weight 78 kg Intake: IV 715 / 715 100 / 100 200 / 200 Azactam Inj 2 GM In NS Inj 100 200 / 200 100 / 100 200 / 200 ML @ 100 mls/hr IV.SIG Q6H SHUKRI Rx#:[id number] Vancomycin Inj 1,500 MG In NS 515 / 515 Inj 500 ML @ 250 mls/hr IV.SIG Q24H SHUKRI Rx#:[id number] Oral 840 / 840 980 / 980 Other: # Voids 6 5 Date of Last Bowel Movement 08/20/18 # Bowel Movements 0 Narrative: GENERAL: Alert and oriented x3. NAD SKIN: Warm and dry. Steri strips left chest wall NECK: Supple, trachea midline. No JVD. CARDIOVASCULAR: Regular rate and rhythm without murmurs, gallops, or rubs. RESPIRATORY: Breath sounds equal bilaterally. No accessory muscle use. GASTROINTESTINAL: Abdomen soft, non-tender, nondistended. Positive bowel sounds MUSCULOSKELETAL: No cyanosis, or edema. BACK: Nontender without obvious deformity. No CVA tenderness. - Urinary Catheter Management Indwelling Urethral Catheter Cath placed during this visit: yes, but has since been removed by the nurse Reason for continuing: Decision to DC catheter Removal date: 08/07/18 Removal time: 18:00 <Cher Freeman - Last Filed: 08/21/18 13:30> Vital signs: Vital Signs 08/23/18 20:00 08/23/18 23:55 08/24/18 00:00 Temperature 98.3 F 97.8 F Pulse Rate 48 L 47 L 47 L Respiratory Rate 16 17 Blood Pressure 150/76 H 138/66 Pulse Oximetry 98 100 08/24/18 04:00 08/24/18 04:15 08/24/18 08:00 Temperature 97.9 F 98.3 F Pulse Rate 86 51 L 53 L Respiratory Rate 17 17 Blood Pressure 124/56 L 135/60 Pulse Oximetry 97 98 08/24/18 11:59 08/24/18 15:58 Temperature 98.9 F 98.8 F Pulse Rate 102 H 52 L Respiratory Rate 17 16 Blood Pressure 113/58 L 123/60 Pulse Oximetry 100 100 Intake & Output 08/23/18 08/24/18 08/24/18 18:59 06:59 18:59 Intake Total 780 / 780 1095 / 1095 715 / 715 Output Total 1500 / 1500 Balance -720 / -720 1095 / 1095 715 / 715 Weight 80.9 kg Intake: IV 100 / 100 815 / 815 715 / 715 Azactam Inj 2 GM In NS Inj 100 100 / 100 300 / 300 200 / 200 ML @ 100 mls/hr IV.SIG Q6H SHUKRI Rx#:[id number] Vancomycin Inj 1,500 MG In NS 515 / 515 515 / 515 Inj 500 ML @ 250 mls/hr IV.SIG Q24H SHUKRI Rx#:[id number] Oral 680 / 680 280 / 280 Output: Urine 1500 / 1500 Other: # Voids 2 Date of Last Bowel Movement 08/23/18 # Bowel Movements 0 1 - Urinary Catheter Management Indwelling Urethral Catheter Cath placed during this visit: no <Slim Arrieta - Last Filed: 08/24/18 18:04> Assessment and Plan - Assessment (1) Acute kidney injury superimposed on CKD Code(s): N17.9 - Acute kidney failure, unspecified; N18.9 - Chronic kidney disease, unspecified Status: Acute Plan: Acute kidney injury with history of chronic kidney disease SHABANA most likely due to hypotension and ATN, unlikely lupus Nephritis Initially started on CCRT 08/03, Then had hemodialysis on and with last hemodialysis on 08/06 24 hour urine with 1.6 grams of protein. Complements normal, Anti DNA normal Plan Proteinuria, continue low dose lisinopril. Avoid nephrotoxins and dye studies Follow urinary output and BMP. Labs in AM (2) SLE (systemic lupus erythematosus) Code(s): M32.9 - Systemic lupus erythematosus, unspecified Status: Acute Plan: Checked for Lupus activity. DNA DS normal On prednisone (3) Hypertension Code(s): I10 - Essential (primary) hypertension Status: Acute Plan: Well controlled,will monitor (4) Endocarditis of tricuspid valve Code(s): I36.8 - Other nonrheumatic tricuspid valve disorders Status: Acute Plan: Antibiotics per ID PICC line placement <Cher Freeman - Last Filed: 08/21/18 13:30> - Assessment (1) Acute kidney injury superimposed on CKD Code(s): N17.9 - Acute kidney failure, unspecified; N18.9 - Chronic kidney disease, unspecified Status: Acute Plan: Patient seen and examine, agree with above. Creatinine is stable, on Lisinopril and Aldactone. Has mild proteinuria and RTA. (2) SLE (systemic lupus erythematosus) Code(s): M32.9 - Systemic lupus erythematosus, unspecified Status: Acute (3) Hypertension Code(s): I10 - Essential (primary) hypertension Status: Acute (4) Endocarditis of tricuspid valve Code(s): I36.8 - Other nonrheumatic tricuspid valve disorders Status: Acute <Slim Arrieta - Last Filed: 08/24/18 18:04>
[2018-08-21] MEDS: Vancomycin Inj 1,500 MG in Sodium Chlor 0.9% Inj 500 ML IV.SIG SCH (13:44)
[2018-08-21 14:25] LABS: Calcium 8.6 mg/dL (8.5-10.1); Carbon Dioxide 19.6 meq/L (21.0-32.0); Magnesium 1.6 mg/dL (1.5-2.5)
--- NOTE | 2018-08-21 14:56 | P.PN ---
Subjective Interval history: In nad No fever or chills No n/v/d/c. Eating well on menstrual kotlik VSS Physical Exam Vital signs: Vital Signs 08/20/18 16:00 08/20/18 20:00 08/21/18 00:00 Temperature 97.8 F 99.2 F Pulse Rate 60 80 49 L Respiratory Rate 17 18 18 Blood Pressure 115/56 L 122/63 Pulse Oximetry 98 98 08/21/18 04:00 08/21/18 08:00 08/21/18 12:00 Temperature 98.5 F 98.4 F Pulse Rate 55 L 79 68 Respiratory Rate 18 20 Blood Pressure 108/54 L 104/53 L Pulse Oximetry 100 100 Intake & Output 08/20/18 08/21/18 08/21/18 18:59 06:59 18:59 Intake Total 1555 / 1555 1080 / 1080 200 / 200 Balance 1555 / 1555 1080 / 1080 200 / 200 Weight 78 kg Intake: IV 715 / 715 100 / 100 200 / 200 Azactam Inj 2 GM In NS Inj 100 200 / 200 100 / 100 200 / 200 ML @ 100 mls/hr IV.SIG Q6H SHUKRI Rx#:[id number] Vancomycin Inj 1,500 MG In NS 515 / 515 Inj 500 ML @ 250 mls/hr IV.SIG Q24H SHUKRI Rx#:[id number] Oral 840 / 840 980 / 980 Other: # Voids 6 5 Date of Last Bowel Movement 08/20/18 # Bowel Movements 0 Narrative: GENERAL: Alert and oriented x3. NAD SKIN: Warm and dry. Steri strips left chest wall NECK: Supple, trachea midline. No JVD. CARDIOVASCULAR: Regular rate and rhythm without murmurs, gallops, or rubs. RESPIRATORY: Breath sounds equal bilaterally. No accessory muscle use. GASTROINTESTINAL: Abdomen soft, non-tender, nondistended. Positive bowel sounds MUSCULOSKELETAL: No cyanosis, or edema. BACK: Nontender without obvious deformity. No CVA tenderness. - Urinary Catheter Management Indwelling Urethral Catheter Cath placed during this visit: yes, but has since been removed by the nurse Reason for continuing: Decision to DC catheter Removal date: 08/07/18 Removal time: 18:00 Results - Labs CBC & Chem 7: 08/17/18 06:05 08/21/18 12:40 Laboratory Results - last 24 hr 08/21/18 08/21/18 12:10 12:40 Sodium 144 Potassium 3.0 L Chloride 115 H Carbon Dioxide 19.6 L Anion Gap 9 BUN 19 H Creatinine 1.01 H Estimated GFR 60 L Random Glucose 100 Calcium 8.6 Magnesium 1.6 Vancomycin Trough 13.6 H Assessment and Plan - Plan NEURO: Chronic pain Possible seizures Continue morphine 15 mg p.o. every 8 hours and as needed Valium 10 mg p.o. every 8 hours EEG only if recurrent seizures, Seizure-like activity noticed on 08/03/2018 most likely secondary to decreased perfusion RESP: Acute hypoxemic respiratory failure-improving Extubated 08/05/2018, tolerating well, DuoNeb q6 and PRN Broad spectrum ABX as below Intubated 08/03/2018 for probable seizure, altered mental status and severe cardiogenic shock PH at the time of intubation was 6.9, lactic acid was 15 Acidosis has resolved continue to wean FiO2 as tolerated Continue EzPAP, IS CV: Severe cardiogenic shock-resolved Symptomatic bradycardia with hypotension-resolved AICD malfunction/probable dislodged pacemaker lead, status post lead extraction and placement of new leads Severe lactic acidosis-resolved 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 2D echo shows tricuspid valve endocarditis, ID following-antibiotics as below CVVH started 08/03 due to severe acidosis, now transition to HD Prior ICD pocket infection in December 2017 and February 2018. Recently replaced by Dr. Cervantes. Per device rep she did not follow-up for scheduled outpatient interrogation following device placement. On admission, interrogation shows pacemaker intermittently capturing per [employer] rep. Holding spironolactone 25 mg p.o. daily in view of renal failure Status post extensive fluid resuscitation, now HD with fluid removal Essential hypertension. Holding Norvasc, restart when appropriate = 08/08. Norvasc to start tomorrow as per nephrology. = 08/09. Blood pressure a little low in the 100s systolic. Will decrease amlodipine to 5 mg daily. = 08/10. Continue to monitor. Blood sugars acceptable. = 08/12. Continue IV antibiotics as per infectious disease. Cultures negative at this time. GI: Crohn's disease Renal diet. Protonix to IV-change to PO States she is scheduled to follow-up with [facility] gastroenterology in the end of August Currently on stress dose steroids, changed to home dose of prednisone 30 mg daily = We will decrease dose of prednisone to 20 mg daily. This is above physiologic dosing. = Continue prednisone 20 mg daily. Appears to be more relaxed at this dose. 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 Hasn't followed up with gynecology in over a year. Endometriosis Beta hCG is negative. Hemoglobin is stable, can follow-up as an outpatient with gynecology. FEN/RENAL: Acute on chronic kidney disease with anuria Chronic kidney disease stage III Started on CVVH 08/03/18 due to anuria and severe metabolic acidosis CVVH changed to hemodialysis 08/04/18 as the blood pressure improved. Urine output slowly improving Nephrology Dr. Arrieta. Currently patient has a right femoral Vas-Cath. Will discuss upper body dialysis catheter placement by IR probably after HD tomorrow , and when white count is further improved Patient states she has not had renal biopsy. She has been followed by nephrology at [facility]. = Nephrology following. Appreciate assistance. Renal function improving slowly. =08/15 with anion gap metabolic acidosis, likely secondary to resolving acute kidney injury. As per nephrology. Hypokalemia Potassium replacement = 08/09. Potassium 2.5. Replaced as per protocol. Additional potassium ordered today. Nephrology following. Appreciate assistance. Follow-up tomorrow. = 08/10. Potassium 3.1. Continue daily replacement as per nephrology. Appreciate assistance. = 08/11. Potassium 3.2. Replace and monitor. = 08/12. Potassium 3.2. Replace and monitor. = 08/13. Potassium 3.3. Replace. 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 She has undergone device removal on 2 prior occasions. Most recently was removed in February 2018 with wound VAC placement. Device replaced 06/27/18. She reported fever 102.7, however she is afebrile here. Continue renally dosed vancomycin, aztreonam, Flagyl 2D echo showed tricuspid valve endocarditis 1.7 x 0.5, however blood cultures 2 sets apparently remains negative Continue medical management. Leukocytosis improving = 08/09 leukocytosis continues improving. 13.8. Continue IV antibiotics as per infectious disease. Appreciate assistance. = 08/10. Leukocytosis improving 11.3. Continue broad-spectrum IV antibiotics as per infectious disease. = 08/13. Leukocytosis of 12. Continue IV antibiotics as per infectious disease. Appreciate assistance. =08/14. Discussed infectious disease. Continue IV antibiotics. =08/15. Discussed with nursing and case management in the ER. Continue IV antibiotics as per infectious disease. IV access issues. As per infectious disease. RHEUM: Systemic lupus erythematosus On chronic steroids On chronic prednisone 30 mg p.o. daily for >2 years. In view of shock will place on hydrocortisone 100 mill grams IV every 8 hours. Hydrocortisone was reduced to 50 mg every 8 hours yesterday, restart prednisone 30 mg today and DC hydrocortisone Scheduled to follow-up with [facility] rheumatology end of August. = Blood pressure acceptable. Continue on 20 mg prednisone daily. HEME: Chronic anemia Thrombocytopenia most likely secondary to DIC/sepsis Transfuse blood and blood products as needed Transfuse 1 unit PRBC today with hemodialysis 08/06/2018 = Platelets 131. Improved. No signs of bleeding. Hemoglobin stable. ENDO: Hypothyroidism Continue Synthroid 112 mcg p.o. daily. Normal TSH. Insomnia Patient was not receiving as needed melatonin. Will make melatonin scheduled = 08/13. Patient still with poor sleep. Discussed sleep hygiene. Will add Ativan at night. =08/14. Sleep improved. Continue to monitor. Labile mood. Patient refusing to be seen by psychiatry doctor. PROPH: SCDs for DVT prophylaxis. Hold pharmacologic DVT prophylaxis at this time due to recent invasive procedure, thrombocytopenia If consistently stays above 90, place on heparin subcu Protonix 40 mg daily for stress ulcer prophylaxis. ACCESS: New right IJ central line, right radial arterial line 08/03/18- DCd right femoral Vas-Cath placed 08/03/18-removed 08/09. Discharge Planning: Continues treatment inpatient with IV antibiotics for endocarditis. We will need clearance from infectious disease, nephrology. PT following. Midline placement 08/17/18 Was blood in the urine per patient will order UA. Possible patient is menstruating at this time
[2018-08-21 19:50] LABS: Bacteria,Urine Rare /hpf; Bilirubin,Urine Negative (Negative); Color,Urine Yellow (Yellw/Straw); Glucose,Urine (UA) Negative (Negative); Leukocyte Esterase,Urine Negative (Negative); Mucus,Urine Few /lpf (Occasional); Nitrite,Urine Negative (Negative); Specific Gravity,Urine 1.017 (1.002-1.035); Squamous Epithelial Cell,Urine 9 /hpf (0-5)
[2018-08-21 19:53] LABS: Clarity,Urine Clear (Clear)
[2018-08-21] MEDS: LORazepam 1 MG Tablet PO SCH (21:43)
[2018-08-21] MEDS: Melatonin 5 MG Tablet PO SCH (21:43)
[2018-08-22] MEDS: Aztreonam Inj 2 GM in Sodium Chloride 0.9% Inj 100 ML IV.SIG SCH ×4 (04:23→22:13)
[2018-08-22] MEDS: Morphine Sulfate 15 MG IR Tablet PO PRN ×3 (04:23→22:14)
[2018-08-22] MEDS: Levothyroxine 112 MCG Tablet PO SCH (05:58)
[2018-08-22 07:09] LABS: Baso # (Auto) 0.1 th/mm3 (0.0-0.2); Baso % (Auto) 1.4 % (0.0-2.0); Eos # (Auto) 0.4 th/mm3 (0.0-0.4); Eos % (Auto) 4.5 % (0.0-4.0); Hematocrit 29.2 % (35.0-46.0); Hemoglobin 9.9 gm/dL (11.6-15.3); Lymph # (Auto) 1.9 th/mm3 (1.0-4.8); Mean Corpuscular HGB Conc 33.8 % (32.0-36.0); Mean Corpuscular Hemoglobin 30.5 pg (27.0-34.0); Mean Corpuscular Volume 90.1 fL (80.0-100.0); Mean Platelet Volume 8.1 fL (7.0-11.0); Mono # (Auto) 0.7 th/mm3 (0.0-0.9); Mono % (Auto) 7.2 % (0.0-8.0); Neut # (Auto) 6.1 th/mm3 (1.8-7.7); Neut % (Auto) 65.9 % (16.0-70.0); Platelet Count 199 th/mm3 (150-450); Red Blood Count 3.23 mil/mm3 (4.00-5.30); Red Cell Distribution Width 18.4 % (11.6-17.2); White Blood Count 9.3 th/mm3 (4.0-11.0)
[2018-08-22 07:25] LABS: Calcium 8.6 mg/dL (8.5-10.1); Carbon Dioxide 17.6 meq/L (21.0-32.0); Potassium 3.2 meq/L (3.5-5.1)
[2018-08-22] MEDS: Morphine Sulfate Inj 2 MG/ML Vial IV.PUSH PRN ×2 (08:43→18:13)
[2018-08-22] MEDS: Sodium Bicarbonate 650 MG Tablet PO SCH ×3 (09:05→16:59)
[2018-08-22] MEDS: Lisinopril 5 MG Tablet PO SCH (09:05)
[2018-08-22] MEDS: Pantoprazole Inj 40 MG Vial IV.PUSH SCH (09:05)
[2018-08-22] MEDS: predniSONE 20 MG Tablet PO SCH (09:05)
[2018-08-22] MEDS: amLODIPine 5 MG Tablet PO SCH (09:06)
[2018-08-22] MEDS: Spironolactone 25 MG Tablet PO SCH (09:06)
[2018-08-22] MEDS: Senna/Docusate Sodium 8.6/50 MG Tablet PO SCH ×2 (09:06→20:21)
--- NOTE | 2018-08-22 10:03 | P.PNADD ---
Addendum to Inpatient Note Additional information: dw Dr Helen RANDHAWA for PICC line OK to dc home from cards standpoint
--- NOTE | 2018-08-22 11:14 | P.PNNP ---
Subjective Interval history: Sitting up in bed. PICC line removed and some swelling noted at site. Shortness of breath on exertion only, generalized pain. <Cher Freeman - Last Filed: 08/22/18 11:06> Physical Exam Vital signs: Vital Signs 08/21/18 12:00 08/21/18 16:00 08/21/18 20:00 Temperature 98.4 F 98.3 F 99.2 F Pulse Rate 68 80 56 L Respiratory Rate 20 20 18 Blood Pressure 104/53 L 115/57 L 104/57 L Pulse Oximetry 100 98 100 08/21/18 21:30 08/22/18 00:00 08/22/18 04:00 Temperature 98.1 F 98.4 F Pulse Rate 49 L 66 Respiratory Rate 18 18 18 Blood Pressure 104/59 L 110/54 L Pulse Oximetry 99 98 08/22/18 08:00 Temperature 98.6 F Pulse Rate 64 Respiratory Rate 18 Blood Pressure 118/57 L Pulse Oximetry 97 Intake & Output 08/21/18 08/22/18 08/22/18 18:59 06:59 18:59 Intake Total 1775 / 1775 200 / 200 Balance 1775 / 1775 200 / 200 Weight 78.6 kg Intake: IV 815 / 815 200 / 200 Azactam Inj 2 GM In NS Inj 100 300 / 300 200 / 200 ML @ 100 mls/hr IV.SIG Q6H SHUKRI Rx#:[id number] Vancomycin Inj 1,500 MG In NS 515 / 515 Inj 500 ML @ 250 mls/hr IV.SIG Q24H SHUKRI Rx#:[id number] Oral 960 / 960 Other: # Voids 5 4 Date of Last Bowel Movement 08/21/18 # Bowel Movements 1 Narrative: GENERAL: Alert and oriented x3. NAD SKIN: Warm and dry. Steri strips left chest wall NECK: Supple, trachea midline. No JVD. CARDIOVASCULAR: Regular rate and rhythm without murmurs, gallops, or rubs. RESPIRATORY: Breath sounds equal bilaterally. No accessory muscle use. GASTROINTESTINAL: Abdomen soft, non-tender, nondistended. Positive bowel sounds MUSCULOSKELETAL: No cyanosis, or edema. Right upper arm slightly swollen BACK: Nontender without obvious deformity. No CVA tenderness. - Urinary Catheter Management Indwelling Urethral Catheter Cath placed during this visit: yes, but has since been removed by the nurse Reason for continuing: Decision to DC catheter Removal date: 08/07/18 Removal time: 18:00 <Cher Freeman - Last Filed: 08/22/18 11:06> Vital signs: Vital Signs 08/26/18 20:00 08/26/18 21:20 08/27/18 00:00 Temperature 98.1 F 98.2 F Pulse Rate 71 77 Respiratory Rate 18 19 18 Blood Pressure 128/77 119/80 Pulse Oximetry 98 99 08/27/18 03:13 08/27/18 04:00 08/27/18 06:48 Temperature 98.8 F Pulse Rate 60 Respiratory Rate 18 18 18 Blood Pressure 105/47 L Pulse Oximetry 100 08/27/18 08:00 08/27/18 12:00 08/27/18 16:00 Temperature 98.1 F 98.0 F 98.1 F Pulse Rate 73 72 80 Respiratory Rate 18 18 18 Blood Pressure 107/64 134/63 118/67 Pulse Oximetry 99 100 99 Intake & Output 08/26/18 08/27/18 08/27/18 18:59 06:59 18:59 Intake Total 715 / 715 642 / 642 615 / 615 Balance 715 / 715 642 / 642 615 / 615 Weight 78.9 kg Intake: IV 715 / 715 200 / 200 615 / 615 Azactam Inj 2 GM In NS Inj 100 200 / 200 200 / 200 100 / 100 ML @ 100 mls/hr IV.SIG Q6H SHUKRI Rx#:[id number] Vancomycin Inj 1,500 MG In NS 515 / 515 515 / 515 Inj 500 ML @ 250 mls/hr IV.SIG Q24H SHUKRI Rx#:[id number] Oral 442 / 442 Other 0 / 0 Other: Other Intake Source Saline Solution # Voids 15 Date of Last Bowel Movement 08/24/18 08/26/18 08/26/18 # Bowel Movements 3 3 - Urinary Catheter Management Indwelling Urethral Catheter Cath placed during this visit: no <Slim Arrieta - Last Filed: 08/27/18 17:08> Assessment and Plan - Assessment (1) Acute kidney injury superimposed on CKD Code(s): N17.9 - Acute kidney failure, unspecified; N18.9 - Chronic kidney disease, unspecified Status: Acute Plan: Acute kidney injury with history of chronic kidney disease SHABANA most likely due to hypotension and ATN, unlikely lupus Nephritis Initially started on CCRT 08/03, Then had hemodialysis on and with last hemodialysis on 08/06 24 hour urine with 1.6 grams of protein. Complements normal, Anti DNA normal Plan HCO3 remains low sodium bicarbonate increased to TID Hypokalemia, put on scheduled and extra replacement given today Continue antibiotics per ID recommendations. Proteinuria, continue low dose lisinopril. Avoid nephrotoxins and dye studies Follow urinary output and BMP. Labs in AM (2) SLE (systemic lupus erythematosus) Code(s): M32.9 - Systemic lupus erythematosus, unspecified Status: Acute Plan: Checked for Lupus activity. DNA DS normal On prednisone (3) Hypertension Code(s): I10 - Essential (primary) hypertension Status: Acute Plan: Well controlled,will monitor (4) Endocarditis of tricuspid valve Code(s): I36.8 - Other nonrheumatic tricuspid valve disorders Status: Acute Plan: Antibiotics per ID <Cher Freeman - Last Filed: 08/22/18 11:06> - Assessment (1) Acute kidney injury superimposed on CKD Code(s): N17.9 - Acute kidney failure, unspecified; N18.9 - Chronic kidney disease, unspecified Status: Acute Plan: Patient seen an examined, agree with above. Creatinine is stable, Has RTA, continue K and NaHco3 replacement. (2) SLE (systemic lupus erythematosus) Code(s): M32.9 - Systemic lupus erythematosus, unspecified Status: Acute (3) Hypertension Code(s): I10 - Essential (primary) hypertension Status: Acute (4) Endocarditis of tricuspid valve Code(s): I36.8 - Other nonrheumatic tricuspid valve disorders Status: Acute <Slim Arrieta - Last Filed: 08/27/18 17:08>
[2018-08-22] MEDS ORDERED: *Heparin Central Flush 100 UNIT/ML 5 ML Vial PERIprocedural ONLY IV.FLUSH ONE (12:37)
--- NOTE | 2018-08-22 13:48 | IR ---
EXAM DATE: 08/22/2018 10:03 AM EDT AGE/SEX: 42 years / Female INDICATIONS: Patient presents with endocarditis in need of PICC line for IV antibiotics. CLINICAL DATA: This is the patient's subsequent encounter. Patient reports that signs and symptoms h ave been present for 1 day and indicates a pain score of 0/10. MEDICAL/SURGICAL HISTORY: Chronic renal failure. Hypothyroidism. Gastroparesis, Anxiety, Bruga da Syndrome, Crohn's Disease, Endometriosis, Hypokalemia, Interstitial cystitis, Lupus, PTSD Appende ctomy. Pacemaker COMPARISON: No prior exams available for comparison. FLUORO TIME (min): .3 IMAGE SERIES: 3 ACCESS SITE: Left basilic vein DEVICE(S): 4 Mong[place]ian single lumen 44 Xcela Power PICC . . PROCEDURE : 1. Ultrasound guidance for venous catheterization. 2. Fluoroscopic guidance. 3. Ultrasound & fluoroscopic guided central venous Power PICC line placement. The risks, benefits and alternatives to the procedure were explained and verbal and written consent w as obtained. The site was prepped in sterile fashion. Full sterile technique was used, including ca p, mask, sterile gloves and gown and a large sterile sheet. Hand hygiene and 2% chlorhexidine prep w as utilized per protocol for cutaneous antisepsis with appropriate dry time for site. Sterile gel a nd sterile probe cover were utilized for ultrasound guidance. The skin and subcutaneous tissues wer e infiltrated with local anesthetic solution. Under direct ultrasound guidance, a suitable vein was accessed and a measuring guidewire was introduc ed and positioned in the central venous system. The ultrasound images depicting access guidance were saved and stored to PACS for permanent record. A Power Injectable PICC line was cut to prescribed length and introduced, positioned with tip at the cavoatrial junction level. The line was flushed and secured per protocol. CONCLUSION: 1. Uncomplicated central venous Power PICC line placement. 2. The PICC line can be used immediately. Electronically signed by: Brian Church MD 08/22/2018 1:47 PM EDT
[2018-08-22] MEDS: Vancomycin Inj 1,500 MG in Sodium Chlor 0.9% Inj 500 ML IV.SIG SCH ×2 (14:38→14:42)
--- NOTE | 2018-08-22 15:36 | P.PNID ---
Subjective Remarks: delayed entry pt was seen today around 1030 no new c/o skipped beats documentnted lost her midline earlier this am Antibiotics: vanco azactam Allergies/Adverse Reactions: Allergies cephalexin Allergy (Severe, Verified 07/13/18 17:57) RASH,SWELLING Fish Containing Products Allergy (Severe, Verified 07/13/18 17:57) SWELLING IN THROAT, SOB ketorolac Allergy (Severe, Verified 07/13/18 17:57) RASH penicillin G Allergy (Severe, Verified 07/13/18 17:57) RASH,SWELLING prochlorperazine Allergy (Mild, Verified 07/13/18 17:57) DYSTONIC REACTION promethazine Allergy (Mild, Verified 07/13/18 17:57) DYSTONIC REACTION Objective Vital Signs 08/21/18 16:00 08/21/18 20:00 08/21/18 21:30 Temperature 98.3 F 99.2 F Pulse Rate 80 56 L Respiratory Rate 20 18 18 Blood Pressure 115/57 L 104/57 L Pulse Oximetry 98 100 08/22/18 00:00 08/22/18 04:00 08/22/18 08:00 Temperature 98.1 F 98.4 F 98.6 F Pulse Rate 49 L 66 64 Respiratory Rate 18 18 18 Blood Pressure 104/59 L 110/54 L 118/57 L Pulse Oximetry 99 98 97 08/22/18 12:00 Temperature 99.3 F Pulse Rate 96 H Respiratory Rate 19 Blood Pressure 153/96 H Pulse Oximetry 100 Intake & Output 08/21/18 08/22/18 08/22/18 18:59 06:59 18:59 Intake Total 1775 / 1775 200 / 200 515 / 515 Balance 1775 / 1775 200 / 200 515 / 515 Weight 78.6 kg Intake: IV 815 / 815 200 / 200 515 / 515 Azactam Inj 2 GM In NS Inj 100 300 / 300 200 / 200 ML @ 100 mls/hr IV.SIG Q6H SHUKRI Rx#:[id number] Vancomycin Inj 1,500 MG In NS 515 / 515 515 / 515 Inj 500 ML @ 250 mls/hr IV.SIG Q24H SHUKRI Rx#:[id number] Oral 960 / 960 Other: # Voids 5 4 Date of Last Bowel Movement 08/21/18 # Bowel Movements 1 Lab - Hematology Results 08/22/18 05:58 WBC 9.3 RBC 3.23 L Hgb 9.9 L Hct 29.2 L MCV 90.1 MCH 30.5 MCHC 33.8 RDW 18.4 H Plt Count 199 MPV 8.1 Neut % (Auto) 65.9 Lymph % (Auto) 21.0 [place] % (Auto) 7.2 Eos % (Auto) 4.5 H Baso % (Auto) 1.4 Neut # (Auto) 6.1 Lymph # (Auto) 1.9 [place] # (Auto) 0.7 Eos # (Auto) 0.4 Baso # (Auto) 0.1 WBC Differential . Differential Comment Auto diff final Lab - Chemistry Results 08/21/18 08/22/18 12:40 05:58 Sodium 144 144 Potassium 3.0 L 3.2 L Chloride 115 H 116 H Carbon Dioxide 19.6 L 17.6 L Anion Gap 9 10 BUN 19 H 20 H Creatinine 1.01 H 1.02 H Estimated GFR 60 L 60 L Random Glucose 100 87 Calcium 8.6 8.6 Magnesium 1.6 Imaging: ITS Impressions Chest X-Ray 08/08/18 06:00 CONCLUSION: 1. No significant interval change. 2. Stable bilateral lower lung zone airspace disease and likely trace pleural effusion. PICC Line Insertion 08/22/18 10:03 CONCLUSION: 1. Uncomplicated central venous Power PICC line placement. 2. The PICC line can be used immediately. Physical Exam: GENERAL: NAD SKIN: Warm and dry. NO rash HEAD: Atraumatic. Normocephalic. EYES: Pupils equal and round. No scleral icterus. No injection or drainage. ENT: No nasal bleeding or discharge. Mucous membranes pink and moist. CARDIOVASCULAR: Regular rate and rhythm. + Murmur L sternal upper border L chest incision dry, clean not tender stirry strips i place RESPIRATORY: No accessory muscle use. Clear to auscultation. Breath sounds equal bilaterally. GASTROINTESTINAL: Abdomen soft, mildly tender, nondistended. MUSCULOSKELETAL: Extremities without clubbing, cyanosis, or edema. NEUROLOGICAL: Awake and alert. Non focal Normal speech. 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 negative bartonella, coxiella serologies sp lead revision last clx from April Proteus, prior to that MSSA, MRSA Report of high grade fever @ home is concerning for underlying infection AICD infection : pt with history of multiple previous pacer infections including MSSA, MRSA and Proteus Pacer/AICD depended - removal of pacer not an option - jeanna Torres Persistent leukocytosis: improving PLAN: cont azactam x 6ks azactam potensitlly can be switched to oral levaquine cont Vanco will Rx x 6 weeks (thru 09/17) fu WBC chk stool for c.diff if devlops diarrhea jeanna Shay: per her report, pt is manipiulating with pacemaker
--- NOTE | 2018-08-22 17:11 | P.PN ---
Subjective Interval history: The patient is in bed she appears in not acute distress at this time. No nausea or vomiting. No pain in her chest. Physical Exam Vital signs: Vital Signs 08/21/18 20:00 08/21/18 21:30 08/22/18 00:00 Temperature 99.2 F 98.1 F Pulse Rate 56 L 49 L Respiratory Rate 18 18 18 Blood Pressure 104/57 L 104/59 L Pulse Oximetry 100 99 08/22/18 04:00 08/22/18 08:00 08/22/18 12:00 Temperature 98.4 F 98.6 F 99.3 F Pulse Rate 66 64 96 H Respiratory Rate 18 18 19 Blood Pressure 110/54 L 118/57 L 153/96 H Pulse Oximetry 98 97 100 Intake & Output 08/21/18 08/22/18 08/22/18 18:59 06:59 18:59 Intake Total 1775 / 1775 200 / 200 1030 / 1030 Balance 1775 / 1775 200 / 200 1030 / 1030 Weight 78.6 kg Intake: IV 815 / 815 200 / 200 1030 / 1030 Azactam Inj 2 GM In NS Inj 100 300 / 300 200 / 200 ML @ 100 mls/hr IV.SIG Q6H SHUKRI Rx#:[id number] Vancomycin Inj 1,500 MG In NS 515 / 515 1030 / 1030 Inj 500 ML @ 250 mls/hr IV.SIG Q24H SHUKRI Rx#:[id number] Oral 960 / 960 Other: # Voids 5 4 Date of Last Bowel Movement 08/21/18 # Bowel Movements 1 Narrative: GENERAL: Alert and oriented x3. NAD SKIN: Warm and dry. Steri strips left chest wall NECK: Supple, trachea midline. No JVD. CARDIOVASCULAR: Regular rate and rhythm without murmurs, gallops, or rubs. RESPIRATORY: Breath sounds equal bilaterally. No accessory muscle use. GASTROINTESTINAL: Abdomen soft, non-tender, nondistended. Positive bowel sounds MUSCULOSKELETAL: No cyanosis, or edema. Right upper arm slightly swollen BACK: Nontender without obvious deformity. No CVA tenderness. - Urinary Catheter Management Indwelling Urethral Catheter Cath placed during this visit: yes, but has since been removed by the nurse Reason for continuing: Decision to DC catheter Removal date: 08/07/18 Removal time: 18:00 Results - Labs CBC & Chem 7: 08/22/18 05:58 08/22/18 05:58 Laboratory Results - last 24 hr 08/21/18 08/22/18 08/22/18 18:35 05:58 05:58 WBC 9.3 RBC 3.23 L Hgb 9.9 L Hct 29.2 L MCV 90.1 MCH 30.5 MCHC 33.8 RDW 18.4 H Plt Count 199 MPV 8.1 Neut % (Auto) 65.9 Lymph % (Auto) 21.0 [place] % (Auto) 7.2 Eos % (Auto) 4.5 H Baso % (Auto) 1.4 Neut # (Auto) 6.1 Lymph # (Auto) 1.9 [place] # (Auto) 0.7 Eos # (Auto) 0.4 Baso # (Auto) 0.1 WBC Differential . Differential Comment Auto diff final Sodium 144 Potassium 3.2 L Chloride 116 H Carbon Dioxide 17.6 L Anion Gap 10 BUN 20 H Creatinine 1.02 H Estimated GFR 60 L Random Glucose 87 Calcium 8.6 Urine Color Yellow Urine Clarity Clear Urine pH 6.0 Ur Specific [place] 1.017 Urine Protein Negative Urine Glucose (UA) Negative Urine Ketones Negative Urine Occult Blood Negative Urine Nitrate Negative Urine Bilirubin Negative Urine Urobilinogen 2.0 H Ur Leukocyte Esterase Negative Urine WBC 1 Ur Squamous Epith Cells 9 Urine Bacteria Rare H Urine Mucus Few H Micro UA Comment Culture not ind Ur Microscopic Review Not Reportable Urine Culture Comments Culture not ind - Imaging Impressions PICC Line Insertion 08/22/18 10:03 CONCLUSION: 1. Uncomplicated central venous Power PICC line placement. 2. The PICC line can be used immediately. Assessment and Plan - Plan NEURO: Chronic pain Possible seizures Continue morphine 15 mg p.o. every 8 hours and as needed Valium 10 mg p.o. every 8 hours EEG only if recurrent seizures, Seizure-like activity noticed on 08/03/2018 most likely secondary to decreased perfusion RESP: Acute hypoxemic respiratory failure-improving Extubated 08/05/2018, tolerating well, DuoNeb q6 and PRN Broad spectrum ABX as below Intubated 08/03/2018 for probable seizure, altered mental status and severe cardiogenic shock PH at the time of intubation was 6.9, lactic acid was 15 Acidosis has resolved continue to wean FiO2 as tolerated Continue EzPAP, IS CV: Severe cardiogenic shock-resolved Symptomatic bradycardia with hypotension-resolved AICD malfunction/probable dislodged pacemaker lead, status post lead extraction and placement of new leads Severe lactic acidosis-resolved 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 2D echo shows tricuspid valve endocarditis, ID following-antibiotics as below CVVH started 08/03 due to severe acidosis, now transition to HD Prior ICD pocket infection in December 2017 and February 2018. Recently replaced by Dr. Cervantes. Per device rep she did not follow-up for scheduled outpatient interrogation following device placement. On admission, interrogation shows pacemaker intermittently capturing per [employer] rep. Holding spironolactone 25 mg p.o. daily in view of renal failure Status post extensive fluid resuscitation, now HD with fluid removal Essential hypertension. Holding Norvasc, restart when appropriate = 08/08. Norvasc to start tomorrow as per nephrology. = 08/09. Blood pressure a little low in the 100s systolic. Will decrease amlodipine to 5 mg daily. = 08/10. Continue to monitor. Blood sugars acceptable. = 08/12. Continue IV antibiotics as per infectious disease. Cultures negative at this time. GI: Crohn's disease Renal diet. Protonix to IV-change to PO States she is scheduled to follow-up with [facility] gastroenterology in the end of August Currently on stress dose steroids, changed to home dose of prednisone 30 mg daily = We will decrease dose of prednisone to 20 mg daily. This is above physiologic dosing. = Continue prednisone 20 mg daily. Appears to be more relaxed at this dose. 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 [employer]: Menorrhagia, patient reports is a chronic problem. Hasn't followed up with gynecology in over a year. Endometriosis Beta hCG is negative. Hemoglobin is stable, can follow-up as an outpatient with gynecology. FEN/RENAL: Acute on chronic kidney disease with anuria Chronic kidney disease stage III Started on CVVH 08/03/18 due to anuria and severe metabolic acidosis CVVH changed to hemodialysis 08/04/18 as the blood pressure improved. Urine output slowly improving Nephrology Dr. Arrieta. Currently patient has a right femoral Vas-Cath. Will discuss upper body dialysis catheter placement by IR probably after HD tomorrow , and when white count is further improved Patient states she has not had renal biopsy. She has been followed by nephrology at [facility]. = Nephrology following. Appreciate assistance. Renal function improving slowly. =08/15 with anion gap metabolic acidosis, likely secondary to resolving acute kidney injury. As per nephrology. Hypokalemia Potassium replacement = 08/09. Potassium 2.5. Replaced as per protocol. Additional potassium ordered today. Nephrology following. Appreciate assistance. Follow-up tomorrow. = 08/10. Potassium 3.1. Continue daily replacement as per nephrology. Appreciate assistance. = 08/11. Potassium 3.2. Replace and monitor. = 08/12. Potassium 3.2. Replace and monitor. = 08/13. Potassium 3.3. Replace. 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 She has undergone device removal on 2 prior occasions. Most recently was removed in February 2018 with wound VAC placement. Device replaced 06/27/18. She reported fever 102.7, however she is afebrile here. Continue renally dosed vancomycin, aztreonam, Flagyl 2D echo showed tricuspid valve endocarditis 1.7 x 0.5, however blood cultures 2 sets apparently remains negative Continue medical management. Leukocytosis improving = 08/09 leukocytosis continues improving. 13.8. Continue IV antibiotics as per infectious disease. Appreciate assistance. = 08/10. Leukocytosis improving 11.3. Continue broad-spectrum IV antibiotics as per infectious disease. = 08/13. Leukocytosis of 12. Continue IV antibiotics as per infectious disease. Appreciate assistance. =08/14. Discussed infectious disease. Continue IV antibiotics. =08/15. Discussed with nursing and case management in the ER. Continue IV antibiotics as per infectious disease. IV access issues. As per infectious disease. RHEUM: Systemic lupus erythematosus On chronic steroids On chronic prednisone 30 mg p.o. daily for >2 years. In view of shock will place on hydrocortisone 100 mill grams IV every 8 hours. Hydrocortisone was reduced to 50 mg every 8 hours yesterday, restart prednisone 30 mg today and DC hydrocortisone Scheduled to follow-up with [facility] rheumatology end of August. = Blood pressure acceptable. Continue on 20 mg prednisone daily. HEME: Chronic anemia Thrombocytopenia most likely secondary to DIC/sepsis Transfuse blood and blood products as needed Transfuse 1 unit PRBC today with hemodialysis 08/06/2018 = Platelets 131. Improved. No signs of bleeding. Hemoglobin stable. ENDO: Hypothyroidism Continue Synthroid 112 mcg p.o. daily. Normal TSH. Insomnia Patient was not receiving as needed melatonin. Will make melatonin scheduled = 08/13. Patient still with poor sleep. Discussed sleep hygiene. Will add Ativan at night. =08/14. Sleep improved. Continue to monitor. Labile mood. Patient refusing to be seen by psychiatry doctor. [place] sdr likely. patient is noted on/off disrupting new AICD as noted with pauses, labs are normal , lytes are normal PROPH: SCDs for DVT prophylaxis. Hold pharmacologic DVT prophylaxis at this time due to recent invasive procedure, thrombocytopenia If consistently stays above 90, place on heparin subcu Protonix 40 mg daily for stress ulcer prophylaxis. ACCESS: New right IJ central line, right radial arterial line 08/03/18- DCd right femoral Vas-Cath placed 08/03/18-removed 08/09. Discharge Planning: Continues treatment inpatient with IV antibiotics for endocarditis. We will need clearance from infectious disease, nephrology. PT following. Midline placement 08/17/18. Removed plan for PICC line Not a candidate for DC home with IV abx as patient is not reliable and is disrupting IV lines, AICD
[2018-08-22] MEDS: LORazepam 1 MG Tablet PO SCH (20:19)
[2018-08-22] MEDS: Melatonin 5 MG Tablet PO SCH (20:19)
[2018-08-23] MEDS: Morphine Sulfate Inj 2 MG/ML Vial IV.PUSH PRN ×3 (02:26→19:35)
[2018-08-23] MEDS: Aztreonam Inj 2 GM in Sodium Chloride 0.9% Inj 100 ML IV.SIG SCH ×4 (04:09→22:50)
[2018-08-23] MEDS: Levothyroxine 112 MCG Tablet PO SCH (06:21)
[2018-08-23] MEDS: Morphine Sulfate 15 MG IR Tablet PO PRN ×3 (06:21→22:57)
[2018-08-23] MEDS: Pantoprazole Inj 40 MG Vial IV.PUSH SCH (09:32)
[2018-08-23] MEDS: Heparin Central Flush 100 UNIT/ML 5 ML Vial IV.FLUSH SCH (09:33)
--- NOTE | 2018-08-23 09:33 | P.PNNP ---
Subjective Interval history: Resting appears comfortably. Reports shortness of breath of exertion, chest discomfort while lying on left side, nausea, and insomnia. Creatinine is stable. <Cher Freeman - Last Filed: 08/23/18 09:31> Physical Exam Vital signs: Vital Signs 08/22/18 12:00 08/22/18 16:00 08/22/18 19:55 Temperature 99.3 F 98.4 F Pulse Rate 96 H 92 H 63 Respiratory Rate 19 18 Blood Pressure 153/96 H 116/54 L Pulse Oximetry 100 99 08/22/18 20:00 08/22/18 23:03 08/22/18 23:55 Temperature 98.2 F 97.1 F L Pulse Rate 83 66 62 Respiratory Rate 16 14 Blood Pressure 102/57 L 109/53 L Pulse Oximetry 100 98 08/23/18 03:55 08/23/18 04:00 08/23/18 08:00 Temperature 97.8 F 98.1 F Pulse Rate 52 L 53 L 61 Respiratory Rate 14 15 Blood Pressure 120/58 L 120/56 L Pulse Oximetry 98 99 Intake & Output 08/22/18 08/23/18 08/23/18 18:59 06:59 18:59 Intake Total 2730 / 2730 690 / 690 Output Total 3000 / 3000 700 / 700 Balance -270 / -270 -10 / -10 Weight 77.2 kg Intake: IV 1130 / 1130 210 / 210 Azactam Inj 2 GM In NS Inj 100 100 / 100 210 / 210 ML @ 100 mls/hr IV.SIG Q6H SHUKRI Rx#:[id number] Vancomycin Inj 1,500 MG In NS 1030 / 1030 Inj 500 ML @ 250 mls/hr IV.SIG Q24H SHUKRI Rx#:[id number] Oral 1600 / 1600 480 / 480 Output: Urine 3000 / 3000 700 / 700 Other: Date of Last Bowel Movement 08/22/18 # Bowel Movements 0 Narrative: GENERAL: Alert and oriented x3. NAD SKIN: Warm and dry. Steri strips left chest wall NECK: Supple, trachea midline. No JVD. CARDIOVASCULAR: Regular rate and rhythm without murmurs, gallops, or rubs. RESPIRATORY: Breath sounds equal bilaterally. No accessory muscle use. GASTROINTESTINAL: Abdomen soft, non-tender, nondistended. Positive bowel sounds MUSCULOSKELETAL: No cyanosis, or edema. Right upper arm slightly swollen BACK: Nontender without obvious deformity. No CVA tenderness. - Urinary Catheter Management Indwelling Urethral Catheter Cath placed during this visit: yes, but has since been removed by the nurse Reason for continuing: Decision to DC catheter Removal date: 08/07/18 Removal time: 18:00 <Cher Freeman - Last Filed: 08/23/18 09:31> Vital signs: Vital Signs 08/26/18 20:00 08/26/18 21:20 08/27/18 00:00 Temperature 98.1 F 98.2 F Pulse Rate 71 77 Respiratory Rate 18 19 18 Blood Pressure 128/77 119/80 Pulse Oximetry 98 99 08/27/18 03:13 08/27/18 04:00 08/27/18 06:48 Temperature 98.8 F Pulse Rate 60 Respiratory Rate 18 18 Blood Pressure 105/47 L Pulse Oximetry 100 08/27/18 08:00 08/27/18 12:00 08/27/18 16:00 Temperature 98.1 F 98.0 F 98.1 F Pulse Rate 73 72 80 Respiratory Rate 18 18 18 Blood Pressure 107/64 134/63 118/67 Pulse Oximetry 99 100 99 Intake & Output 08/26/18 08/27/18 08/27/18 18:59 06:59 18:59 Intake Total 715 / 715 642 / 642 615 / 615 Balance 715 / 715 642 / 642 615 / 615 Weight 78.9 kg Intake: IV 715 / 715 200 / 200 615 / 615 Azactam Inj 2 GM In NS Inj 100 200 / 200 200 / 200 100 / 100 ML @ 100 mls/hr IV.SIG Q6H SHUKRI Rx#:[id number] Vancomycin Inj 1,500 MG In NS 515 / 515 515 / 515 Inj 500 ML @ 250 mls/hr IV.SIG Q24H SHUKRI Rx#:[id number] Oral 442 / 442 Other 0 / 0 Other: Other Intake Source Saline Solution # Voids 15 Date of Last Bowel Movement 08/24/18 08/26/18 08/26/18 # Bowel Movements 3 3 - Urinary Catheter Management Indwelling Urethral Catheter Cath placed during this visit: no <Slim Arrieta - Last Filed: 08/27/18 17:15> Assessment and Plan - Assessment (1) Acute kidney injury superimposed on CKD Code(s): N17.9 - Acute kidney failure, unspecified; N18.9 - Chronic kidney disease, unspecified Status: Acute Plan: Acute kidney injury with history of chronic kidney disease SHABANA most likely due to hypotension and ATN, unlikely lupus Nephritis Initially started on CCRT 08/03, Then had hemodialysis on and with last hemodialysis on 08/06 24 hour urine with 1.6 grams of protein. Complements normal, Anti DNA normal Plan Creatinine remains stable, with good urinary output Continue antibiotics per ID recommendations Proteinuria, continue low dose lisinopril. Avoid nephrotoxins and dye studies Follow urinary output and BMP. Labs in AM (2) SLE (systemic lupus erythematosus) Code(s): M32.9 - Systemic lupus erythematosus, unspecified Status: Acute Plan: Checked for Lupus activity. DNA DS normal On prednisone (3) Hypertension Code(s): I10 - Essential (primary) hypertension Status: Acute Plan: Well controlled,will monitor (4) Endocarditis of tricuspid valve Code(s): I36.8 - Other nonrheumatic tricuspid valve disorders Status: Acute Plan: Antibiotics per ID <Cher Freeman - Last Filed: 08/23/18 09:31> - Assessment (1) Acute kidney injury superimposed on CKD Code(s): N17.9 - Acute kidney failure, unspecified; N18.9 - Chronic kidney disease, unspecified Status: Acute Plan: Patient seen an examined, agree with above. Creatinine stable, lupus is not active. Continue antibiotics as per ID. On Kcl, Aldactone and NaHco3. (2) SLE (systemic lupus erythematosus) Code(s): M32.9 - Systemic lupus erythematosus, unspecified Status: Acute (3) Hypertension Code(s): I10 - Essential (primary) hypertension Status: Acute (4) Endocarditis of tricuspid valve Code(s): I36.8 - Other nonrheumatic tricuspid valve disorders Status: Acute <Slim Arrieta - Last Filed: 08/27/18 17:15>
[2018-08-23] MEDS: Sodium Bicarbonate 650 MG Tablet PO SCH ×3 (09:34→19:46)
[2018-08-23] MEDS: Senna/Docusate Sodium 8.6/50 MG Tablet PO SCH ×2 (09:34→22:34)
[2018-08-23] MEDS: predniSONE 20 MG Tablet PO SCH (09:35)
[2018-08-23] MEDS: amLODIPine 5 MG Tablet PO SCH (09:35)
[2018-08-23] MEDS: Spironolactone 25 MG Tablet PO SCH ×2 (09:35→17:27)
[2018-08-23] MEDS: Lisinopril 5 MG Tablet PO SCH (09:35)
[2018-08-23] MEDS ORDERED: Pharmacy Ordered Lab Info OTHER ONE (12:45)
[2018-08-23] MEDS: Vancomycin Inj 1,500 MG in Sodium Chlor 0.9% Inj 500 ML IV.SIG SCH (14:58)
--- NOTE | 2018-08-23 16:13 | P.PN ---
Subjective Interval history: In nad. Has some cramps in her belly from menstruation/ No fever ro chills Feels tired today however she was ambulating Physical Exam Vital signs: Vital Signs 08/22/18 19:55 08/22/18 20:00 08/22/18 23:03 Temperature 98.2 F 97.1 F L Pulse Rate 63 83 66 Respiratory Rate 16 14 Blood Pressure 102/57 L 109/53 L Pulse Oximetry 100 98 08/22/18 23:55 08/23/18 03:55 08/23/18 04:00 Temperature 97.8 F Pulse Rate 62 52 L 53 L Respiratory Rate 14 Blood Pressure 120/58 L Pulse Oximetry 98 08/23/18 08:00 08/23/18 12:00 08/23/18 16:00 Temperature 98.1 F 98.7 F 98.9 F Pulse Rate 61 73 77 Respiratory Rate 15 18 18 Blood Pressure 120/56 L 118/64 131/59 L Pulse Oximetry 99 99 97 Intake & Output 08/22/18 08/23/18 08/23/18 18:59 06:59 18:59 Intake Total 2730 / 2730 690 / 690 100 / 100 Output Total 3000 / 3000 700 / 700 Balance -270 / -270 -10 / -10 100 / 100 Weight 77.2 kg Intake: IV 1130 / 1130 210 / 210 100 / 100 Azactam Inj 2 GM In NS Inj 100 100 / 100 210 / 210 100 / 100 ML @ 100 mls/hr IV.SIG Q6H SHUKRI Rx#:[id number] Vancomycin Inj 1,500 MG In NS 1030 / 1030 Inj 500 ML @ 250 mls/hr IV.SIG Q24H SHUKRI Rx#:[id number] Oral 1600 / 1600 480 / 480 Output: Urine 3000 / 3000 700 / 700 Other: Date of Last Bowel Movement 08/22/18 # Bowel Movements 0 Narrative: GENERAL: Alert and oriented x3. NAD SKIN: Warm and dry. Steri strips left chest wall NECK: Supple, trachea midline. No JVD. CARDIOVASCULAR: Regular rate and rhythm without murmurs, gallops, or rubs. RESPIRATORY: Breath sounds equal bilaterally. No accessory muscle use. GASTROINTESTINAL: Abdomen soft, non-tender, nondistended. Bowel sounds are normal MUSCULOSKELETAL: No cyanosis, or edema. Right upper arm slightly swollen BACK: Nontender without obvious deformity. No CVA tenderness. - Urinary Catheter Management Indwelling Urethral Catheter Cath placed during this visit: yes, but has since been removed by the nurse Reason for continuing: Decision to DC catheter Removal date: 08/07/18 Removal time: 18:00 Results - Labs CBC & Chem 7: 08/22/18 05:58 08/23/18 06:25 Laboratory Results - last 24 hr 08/23/18 06:25 Creatinine 1.08 H Estimated GFR 56 L Assessment and Plan - Plan NEURO: Chronic pain Possible seizures Continue morphine 15 mg p.o. every 8 hours and as needed Valium 10 mg p.o. every 8 hours EEG only if recurrent seizures, Seizure-like activity noticed on 08/03/2018 most likely secondary to decreased perfusion RESP: Acute hypoxemic respiratory failure-improving Extubated 08/05/2018, tolerating well, DuoNeb q6 and PRN Broad spectrum ABX as below Intubated 08/03/2018 for probable seizure, altered mental status and severe cardiogenic shock PH at the time of intubation was 6.9, lactic acid was 15 Acidosis has resolved continue to wean FiO2 as tolerated Continue EzPAP, IS CV: Severe cardiogenic shock-resolved Symptomatic bradycardia with hypotension-resolved AICD malfunction/probable dislodged pacemaker lead, status post lead extraction and placement of new leads Severe lactic acidosis-resolved 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 2D echo shows tricuspid valve endocarditis, ID following-antibiotics as below CVVH started 08/03 due to severe acidosis, now transition to HD Prior ICD pocket infection in December 2017 and February 2018. Recently replaced by Dr. Cervantes. Per device rep she did not follow-up for scheduled outpatient interrogation following device placement. On admission, interrogation shows pacemaker intermittently capturing per [employer] rep. Holding spironolactone 25 mg p.o. daily in view of renal failure Status post extensive fluid resuscitation, now HD with fluid removal Essential hypertension. Holding Norvasc, restart when appropriate = 08/08. Norvasc to start tomorrow as per nephrology. = 08/09. Blood pressure a little low in the 100s systolic. Will decrease amlodipine to 5 mg daily. = 08/10. Continue to monitor. Blood sugars acceptable. = 08/12. Continue IV antibiotics as per infectious disease. Cultures negative at this time. GI: Crohn's disease Renal diet. Protonix to IV-change to PO States she is scheduled to follow-up with [facility] gastroenterology in the end of August Currently on stress dose steroids, changed to home dose of prednisone 30 mg daily = We will decrease dose of prednisone to 20 mg daily. This is above physiologic dosing. = Continue prednisone 20 mg daily. Appears to be more relaxed at this dose. 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 Hasn't followed up with gynecology in over a year. Endometriosis Beta hCG is negative. Hemoglobin is stable, can follow-up as an outpatient with gynecology. FEN/RENAL: Acute on chronic kidney disease with anuria Chronic kidney disease stage III Started on CVVH 08/03/18 due to anuria and severe metabolic acidosis CVVH changed to hemodialysis 08/04/18 as the blood pressure improved. Urine output slowly improving Nephrology Dr. Arrieta. Currently patient has a right femoral Vas-Cath. Will discuss upper body dialysis catheter placement by IR probably after HD tomorrow , and when white count is further improved Patient states she has not had renal biopsy. She has been followed by nephrology at [facility]. = Nephrology following. Appreciate assistance. Renal function improving slowly. =08/15 with anion gap metabolic acidosis, likely secondary to resolving acute kidney injury. As per nephrology. Hypokalemia Potassium replacement = 08/09. Potassium 2.5. Replaced as per protocol. Additional potassium ordered today. Nephrology following. Appreciate assistance. Follow-up tomorrow. = 08/10. Potassium 3.1. Continue daily replacement as per nephrology. Appreciate assistance. = 08/11. Potassium 3.2. Replace and monitor. = 08/12. Potassium 3.2. Replace and monitor. = 08/13. Potassium 3.3. Replace. 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 She has undergone device removal on 2 prior occasions. Most recently was removed in February 2018 with wound VAC placement. Device replaced 06/27/18. She reported fever 102.7, however she is afebrile here. Continue renally dosed vancomycin, aztreonam, Flagyl 2D echo showed tricuspid valve endocarditis 1.7 x 0.5, however blood cultures 2 sets apparently remains negative Continue medical management. Leukocytosis improving = 08/09 leukocytosis continues improving. 13.8. Continue IV antibiotics as per infectious disease. Appreciate assistance. = 08/10. Leukocytosis improving 11.3. Continue broad-spectrum IV antibiotics as per infectious disease. = 08/13. Leukocytosis of 12. Continue IV antibiotics as per infectious disease. Appreciate assistance. =08/14. Discussed infectious disease. Continue IV antibiotics. =08/15. Discussed with nursing and case management in the ER. Continue IV antibiotics as per infectious disease. IV access issues. As per infectious disease. RHEUM: Systemic lupus erythematosus On chronic steroids On chronic prednisone 30 mg p.o. daily for >2 years. In view of shock will place on hydrocortisone 100 mill grams IV every 8 hours. Hydrocortisone was reduced to 50 mg every 8 hours yesterday, restart prednisone 30 mg today and DC hydrocortisone Scheduled to follow-up with [facility] rheumatology end of August. = Blood pressure acceptable. Continue on 20 mg prednisone daily. HEME: Chronic anemia Thrombocytopenia most likely secondary to DIC/sepsis Transfuse blood and blood products as needed Transfuse 1 unit PRBC today with hemodialysis 08/06/2018 = Platelets 131. Improved. No signs of bleeding. Hemoglobin stable. ENDO: Hypothyroidism Continue Synthroid 112 mcg p.o. daily. Normal TSH. Insomnia Patient was not receiving as needed melatonin. Will make melatonin scheduled = 08/13. Patient still with poor sleep. Discussed sleep hygiene. Will add Ativan at night. =08/14. Sleep improved. Continue to monitor. Labile mood. Patient refusing to be seen by psychiatry doctor. [place] sdr likely. patient is noted on/off disrupting new AICD as noted with pauses, labs are normal , lytes are normal PROPH: SCDs for DVT prophylaxis. Hold pharmacologic DVT prophylaxis at this time due to recent invasive procedure, thrombocytopenia If consistently stays above 90, place on heparin subcu Protonix 40 mg daily for stress ulcer prophylaxis. ACCESS: New right IJ central line, right radial arterial line 08/03/18- DCd right femoral Vas-Cath placed 08/03/18-removed 08/09. Discharge Planning: Continues treatment inpatient with IV antibiotics for endocarditis. We will need clearance from infectious disease, nephrology. PT following. Midline placement 08/17/18. Removed plan for PICC line Not a candidate for DC home with IV abx as patient is not reliable and is disrupting IV lines, AICD
[2018-08-23] MEDS: LORazepam 1 MG Tablet PO SCH (20:30)
[2018-08-23] MEDS: Melatonin 5 MG Tablet PO SCH (20:31)
[2018-08-24] MEDS: Morphine Sulfate Inj 2 MG/ML Vial IV.PUSH PRN ×3 (03:48→19:19)
[2018-08-24] MEDS: Aztreonam Inj 2 GM in Sodium Chloride 0.9% Inj 100 ML IV.SIG SCH ×4 (03:49→21:10)
[2018-08-24] MEDS: Levothyroxine 112 MCG Tablet PO SCH (07:00)
[2018-08-24] MEDS: Morphine Sulfate 15 MG IR Tablet PO PRN ×3 (07:00→22:59)
[2018-08-24] MEDS: predniSONE 20 MG Tablet PO SCH (08:10)
[2018-08-24] MEDS: Lisinopril 5 MG Tablet PO SCH (08:10)
[2018-08-24] MEDS: Pantoprazole Inj 40 MG Vial IV.PUSH SCH (08:10)
[2018-08-24] MEDS: Sodium Bicarbonate 650 MG Tablet PO SCH ×3 (08:10→17:01)
[2018-08-24] MEDS: Heparin Central Flush 100 UNIT/ML 5 ML Vial IV.FLUSH SCH (08:11)
[2018-08-24] MEDS: Spironolactone 25 MG Tablet PO SCH ×2 (08:11→17:01)
[2018-08-24] MEDS: amLODIPine 5 MG Tablet PO SCH (08:11)
[2018-08-24] MEDS: Senna/Docusate Sodium 8.6/50 MG Tablet PO SCH ×2 (08:11→22:46)
[2018-08-24 08:13] LABS: Albumin 2.8 g/dL (3.4-5.0); Calcium 8.8 mg/dL (8.5-10.1); Carbon Dioxide 21.7 meq/L (21.0-32.0); Phosphorus 2.7 mg/dL (2.5-4.9); Potassium 3.2 meq/L (3.5-5.1)
--- NOTE | 2018-08-24 11:42 | P.PNNP ---
Subjective Interval history: No acute changes overnight. Continues on antibiotics for endocarditis. Creatinine stable. <Cher Freeman - Last Filed: 08/24/18 11:38> Physical Exam Vital signs: Vital Signs 08/23/18 12:00 08/23/18 16:00 08/23/18 20:00 Temperature 98.7 F 98.9 F 98.3 F Pulse Rate 73 58 L 48 L Respiratory Rate 18 18 16 Blood Pressure 118/64 131/59 L 150/76 H Pulse Oximetry 99 97 98 08/23/18 23:55 08/24/18 00:00 08/24/18 04:00 Temperature 97.8 F 97.9 F Pulse Rate 47 L 47 L 86 Respiratory Rate 17 17 Blood Pressure 138/66 124/56 L Pulse Oximetry 100 97 08/24/18 04:15 08/24/18 08:00 Temperature 98.3 F Pulse Rate 51 L 53 L Respiratory Rate 17 Blood Pressure 135/60 Pulse Oximetry 98 Intake & Output 08/23/18 08/24/18 08/24/18 18:59 06:59 18:59 Intake Total 780 / 780 1095 / 1095 100 / 100 Output Total 1500 / 1500 Balance -720 / -720 1095 / 1095 100 / 100 Weight 80.9 kg Intake: IV 100 / 100 815 / 815 100 / 100 Azactam Inj 2 GM In NS Inj 100 100 / 100 300 / 300 100 / 100 ML @ 100 mls/hr IV.SIG Q6H SHUKRI Rx#:[id number] Vancomycin Inj 1,500 MG In NS 515 / 515 Inj 500 ML @ 250 mls/hr IV.SIG Q24H SHUKRI Rx#:[id number] Oral 680 / 680 280 / 280 Output: Urine 1500 / 1500 Other: # Voids 2 Date of Last Bowel Movement 08/23/18 # Bowel Movements 0 1 Narrative: GENERAL: Alert and oriented x3. NAD SKIN: Warm and dry. Steri strips left chest wall NECK: Supple, trachea midline. No JVD. CARDIOVASCULAR: Regular rate and rhythm without murmurs, gallops, or rubs. RESPIRATORY: Breath sounds equal bilaterally. No accessory muscle use. GASTROINTESTINAL: Abdomen soft, non-tender, nondistended. Bowel sounds are normal MUSCULOSKELETAL: No cyanosis, or edema. BACK: Nontender without obvious deformity. No CVA tenderness. - Urinary Catheter Management Indwelling Urethral Catheter Cath placed during this visit: yes, but has since been removed by the nurse Reason for continuing: Decision to DC catheter Removal date: 08/07/18 Removal time: 18:00 <Cher Freeman - Last Filed: 08/24/18 11:38> Vital signs: Vital Signs 08/27/18 20:00 08/28/18 00:00 08/28/18 04:00 Temperature 98.9 F 98.5 F 97.8 F Pulse Rate 74 41 L 48 L Respiratory Rate 15 14 14 Blood Pressure 118/81 102/72 142/68 H Pulse Oximetry 97 97 99 08/28/18 08:00 08/28/18 12:00 08/28/18 16:00 Temperature 97.8 F 98.7 F 98.4 F Pulse Rate 45 L 69 67 Respiratory Rate 23 19 19 Blood Pressure 131/60 121/70 100/62 Pulse Oximetry 99 99 100 Intake & Output 08/27/18 08/28/18 08/28/18 18:59 06:59 18:59 Intake Total 715 / 715 680 / 680 100 / 100 Balance 715 / 715 680 / 680 100 / 100 Weight 79.4 kg Intake: IV 715 / 715 200 / 200 100 / 100 Azactam Inj 2 GM In NS Inj 100 200 / 200 200 / 200 100 / 100 ML @ 100 mls/hr IV.SIG Q6H SHUKRI Rx#:[id number] Vancomycin Inj 1,500 MG In NS 515 / 515 Inj 500 ML @ 250 mls/hr IV.SIG Q24H SHUKRI Rx#:[id number] Oral 480 / 480 Other: # Voids 3 4 Date of Last Bowel Movement 08/26/18 08/27/18 - Urinary Catheter Management Indwelling Urethral Catheter Cath placed during this visit: no <Slim Arrieta - Last Filed: 08/28/18 18:02> Assessment and Plan - Assessment (1) Acute kidney injury superimposed on CKD Code(s): N17.9 - Acute kidney failure, unspecified; N18.9 - Chronic kidney disease, unspecified Status: Acute Plan: Acute kidney injury with history of chronic kidney disease SHABANA most likely due to hypotension and ATN, unlikely lupus Nephritis Initially started on CCRT 08/03, Then had hemodialysis on and with last hemodialysis on 08/06 24 hour urine with 1.6 grams of protein. Complements normal, Anti DNA normal Plan Creatinine remains stable, with good urinary output Continue antibiotics per ID recommendations Hypokalemia 3.2 , spironolactone increased yesterday, on scheduled potassium replacement and extra dose given today. Avoid nephrotoxins and dye studies Follow urinary output and BMP. (2) SLE (systemic lupus erythematosus) Code(s): M32.9 - Systemic lupus erythematosus, unspecified Status: Acute Plan: Checked for Lupus activity. DNA DS normal On prednisone (3) Hypertension Code(s): I10 - Essential (primary) hypertension Status: Acute Plan: Well controlled,will monitor (4) Endocarditis of tricuspid valve Code(s): I36.8 - Other nonrheumatic tricuspid valve disorders Status: Acute Plan: Antibiotics per ID <Cher Freeman - Last Filed: 08/24/18 11:38> - Assessment (1) Acute kidney injury superimposed on CKD Code(s): N17.9 - Acute kidney failure, unspecified; N18.9 - Chronic kidney disease, unspecified Status: Acute Plan: Patient seen and examined, agree with above. K is low, on Aldactone, Creatinine is stable. (2) SLE (systemic lupus erythematosus) Code(s): M32.9 - Systemic lupus erythematosus, unspecified Status: Acute (3) Hypertension Code(s): I10 - Essential (primary) hypertension Status: Acute (4) Endocarditis of tricuspid valve Code(s): I36.8 - Other nonrheumatic tricuspid valve disorders Status: Acute <Slim Arrieta - Last Filed: 08/28/18 18:02>
[2018-08-24] MEDS: Vancomycin Inj 1,500 MG in Sodium Chlor 0.9% Inj 500 ML IV.SIG SCH (12:32)
--- NOTE | 2018-08-24 14:21 | P.PN ---
Subjective Interval history: In bed . Noted on telemetry with abnormal pacing, patient says she is not manipulating the PM. However she admits of stretching arm. No chest pain or sob. No n/v/d/c. PM interrogation tomorrow morning Physical Exam Vital signs: Vital Signs 08/23/18 16:00 08/23/18 20:00 08/23/18 23:55 Temperature 98.9 F 98.3 F Pulse Rate 58 L 48 L 47 L Respiratory Rate 18 16 Blood Pressure 131/59 L 150/76 H Pulse Oximetry 97 98 08/24/18 00:00 08/24/18 04:00 08/24/18 04:15 Temperature 97.8 F 97.9 F Pulse Rate 47 L 86 51 L Respiratory Rate 17 17 Blood Pressure 138/66 124/56 L Pulse Oximetry 100 97 08/24/18 08:00 08/24/18 11:59 Temperature 98.3 F 98.9 F Pulse Rate 53 L 102 H Respiratory Rate 17 17 Blood Pressure 135/60 113/58 L Pulse Oximetry 98 100 Intake & Output 08/23/18 08/24/18 08/24/18 18:59 06:59 18:59 Intake Total 780 / 780 1095 / 1095 100 / 100 Output Total 1500 / 1500 Balance -720 / -720 1095 / 1095 100 / 100 Weight 80.9 kg Intake: IV 100 / 100 815 / 815 100 / 100 Azactam Inj 2 GM In NS Inj 100 100 / 100 300 / 300 100 / 100 ML @ 100 mls/hr IV.SIG Q6H SHUKRI Rx#:[id number] Vancomycin Inj 1,500 MG In NS 515 / 515 Inj 500 ML @ 250 mls/hr IV.SIG Q24H SHUKRI Rx#:[id number] Oral 680 / 680 280 / 280 Output: Urine 1500 / 1500 Other: # Voids 2 Date of Last Bowel Movement 08/23/18 # Bowel Movements 0 1 Narrative: GENERAL: Alert and oriented x3. NAD SKIN: Warm and dry. Steri strips left chest wall NECK: Supple, trachea midline. No JVD. CARDIOVASCULAR: Regular rate and rhythm without murmurs, gallops, or rubs. RESPIRATORY: Breath sounds equal bilaterally. No accessory muscle use. GASTROINTESTINAL: Abdomen soft, non-tender, nondistended. Bowel sounds are normal MUSCULOSKELETAL: No cyanosis, or edema. BACK: Nontender without obvious deformity. No CVA tenderness. - Urinary Catheter Management Indwelling Urethral Catheter Cath placed during this visit: yes, but has since been removed by the nurse Reason for continuing: Decision to DC catheter Removal date: 08/07/18 Removal time: 18:00 Results - Labs CBC & Chem 7: 08/22/18 05:58 08/24/18 07:05 Laboratory Results - last 24 hr 08/24/18 07:05 Sodium 145 Potassium 3.2 L Chloride 116 H Carbon Dioxide 21.7 Anion Gap 7 BUN 19 H Creatinine 1.00 Estimated GFR 61 L Random Glucose 85 Calcium 8.8 Phosphorus 2.7 Albumin 2.8 L Assessment and Plan - Plan NEURO: Chronic pain Possible seizures Continue morphine 15 mg p.o. every 8 hours and as needed Valium 10 mg p.o. every 8 hours EEG only if recurrent seizures, Seizure-like activity noticed on 08/03/2018 most likely secondary to decreased perfusion RESP: Acute hypoxemic respiratory failure-improving Extubated 08/05/2018, tolerating well, DuoNeb q6 and PRN Broad spectrum ABX as below Intubated 08/03/2018 for probable seizure, altered mental status and severe cardiogenic shock PH at the time of intubation was 6.9, lactic acid was 15 Acidosis has resolved continue to wean FiO2 as tolerated Continue EzPAP, IS CV: Severe cardiogenic shock-resolved Symptomatic bradycardia with hypotension-resolved AICD malfunction/probable dislodged pacemaker lead, status post lead extraction and placement of new leads Severe lactic acidosis-resolved 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 2D echo shows tricuspid valve endocarditis, ID following-antibiotics as below CVVH started 08/03 due to severe acidosis, now transition to HD Prior ICD pocket infection in December 2017 and February 2018. Recently replaced by Dr. Cervantes. Per device rep she did not follow-up for scheduled outpatient interrogation following device placement. On admission, interrogation shows pacemaker intermittently capturing per [employer] rep. Holding spironolactone 25 mg p.o. daily in view of renal failure Status post extensive fluid resuscitation, now HD with fluid removal Essential hypertension. Holding Norvasc, restart when appropriate = 08/08. Norvasc to start tomorrow as per nephrology. = 08/09. Blood pressure a little low in the 100s systolic. Will decrease amlodipine to 5 mg daily. = 08/10. Continue to monitor. Blood sugars acceptable. = 08/12. Continue IV antibiotics as per infectious disease. Cultures negative at this time. PM interrogation tomorrow morning 08/25, as noted abnormal pacing GI: Crohn's disease Renal diet. Protonix to IV-change to PO States she is scheduled to follow-up with [facility] gastroenterology in the end of August Currently on stress dose steroids, changed to home dose of prednisone 30 mg daily = We will decrease dose of prednisone to 20 mg daily. This is above physiologic dosing. = Continue prednisone 20 mg daily. Appears to be more relaxed at this dose. 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 Hasn't followed up with gynecology in over a year. Endometriosis Beta hCG is negative. Hemoglobin is stable, can follow-up as an outpatient with gynecology. FEN/RENAL: Acute on chronic kidney disease with anuria Chronic kidney disease stage III Started on CVVH 08/03/18 due to anuria and severe metabolic acidosis CVVH changed to hemodialysis 08/04/18 as the blood pressure improved. Urine output slowly improving Nephrology Dr. Arrieta. Currently patient has a right femoral Vas-Cath. Will discuss upper body dialysis catheter placement by IR probably after HD tomorrow , and when white count is further improved Patient states she has not had renal biopsy. She has been followed by nephrology at [facility]. = Nephrology following. Appreciate assistance. Renal function improving slowly. =08/15 with anion gap metabolic acidosis, likely secondary to resolving acute kidney injury. As per nephrology. Hypokalemia Potassium replacement = 08/09. Potassium 2.5. Replaced as per protocol. Additional potassium ordered today. Nephrology following. Appreciate assistance. Follow-up tomorrow. = 08/10. Potassium 3.1. Continue daily replacement as per nephrology. Appreciate assistance. = 08/11. Potassium 3.2. Replace and monitor. = 08/12. Potassium 3.2. Replace and monitor. = 08/13. Potassium 3.3. Replace. 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 She has undergone device removal on 2 prior occasions. Most recently was removed in February 2018 with wound VAC placement. Device replaced 06/27/18. She reported fever 102.7, however she is afebrile here. Continue renally dosed vancomycin, aztreonam, Flagyl 2D echo showed tricuspid valve endocarditis 1.7 x 0.5, however blood cultures 2 sets apparently remains negative Continue medical management. Leukocytosis improving = 08/09 leukocytosis continues improving. 13.8. Continue IV antibiotics as per infectious disease. Appreciate assistance. = 08/10. Leukocytosis improving 11.3. Continue broad-spectrum IV antibiotics as per infectious disease. = 08/13. Leukocytosis of 12. Continue IV antibiotics as per infectious disease. Appreciate assistance. =08/14. Discussed infectious disease. Continue IV antibiotics. =08/15. Discussed with nursing and case management in the ER. Continue IV antibiotics as per infectious disease. IV access issues. As per infectious disease. RHEUM: Systemic lupus erythematosus On chronic steroids On chronic prednisone 30 mg p.o. daily for >2 years. In view of shock will place on hydrocortisone 100 mill grams IV every 8 hours. Hydrocortisone was reduced to 50 mg every 8 hours yesterday, restart prednisone 30 mg today and DC hydrocortisone Scheduled to follow-up with [facility] rheumatology end of August. = Blood pressure acceptable. Continue on 20 mg prednisone daily. HEME: Chronic anemia Thrombocytopenia most likely secondary to DIC/sepsis Transfuse blood and blood products as needed Transfuse 1 unit PRBC today with hemodialysis 08/06/2018 = Platelets 131. Improved. No signs of bleeding. Hemoglobin stable. ENDO: Hypothyroidism Continue Synthroid 112 mcg p.o. daily. Normal TSH. Insomnia Patient was not receiving as needed melatonin. Will make melatonin scheduled = 08/13. Patient still with poor sleep. Discussed sleep hygiene. Will add Ativan at night. =08/14. Sleep improved. Continue to monitor. Labile mood. Patient refusing to be seen by psychiatry doctor. [place] sdr likely. patient is noted on/off disrupting new AICD as noted with pauses, labs are normal , lytes are normal PROPH: SCDs for DVT prophylaxis. Hold pharmacologic DVT prophylaxis at this time due to recent invasive procedure, thrombocytopenia If consistently stays above 90, place on heparin subcu Protonix 40 mg daily for stress ulcer prophylaxis. ACCESS: New right IJ central line, right radial arterial line 08/03/18- DCd right femoral Vas-Cath placed 08/03/18-removed 08/09. Discharge Planning: Continues treatment inpatient with IV antibiotics for endocarditis. We will need clearance from infectious disease, nephrology. PT following. Midline placement 08/17/18. Removed plan for PICC line Not a candidate for DC home with IV abx as patient is not reliable and is disrupting IV lines, AICD PM interrogation tomorrow morning 08/25, as noted abnormal pacing
[2018-08-24] MEDS: Melatonin 5 MG Tablet PO SCH (21:06)
[2018-08-24] MEDS: LORazepam 1 MG Tablet PO SCH (21:06)
[2018-08-25] MEDS: Aztreonam Inj 2 GM in Sodium Chloride 0.9% Inj 100 ML IV.SIG SCH ×4 (03:30→21:52)
[2018-08-25] MEDS: Morphine Sulfate Inj 2 MG/ML Vial IV.PUSH PRN ×3 (03:30→18:34)
[2018-08-25 04:29] LABS: Baso # (Auto) 0.1 th/mm3 (0.0-0.2); Baso % (Auto) 1.3 % (0.0-2.0); Eos # (Auto) 0.4 th/mm3 (0.0-0.4); Eos % (Auto) 4.5 % (0.0-4.0); Hematocrit 29.3 % (35.0-46.0); Hemoglobin 9.6 gm/dL (11.6-15.3); Lymph # (Auto) 2.4 th/mm3 (1.0-4.8); Lymph % (Auto) 28.1 % (9.0-44.0); Mean Corpuscular HGB Conc 32.7 % (32.0-36.0); Mean Corpuscular Hemoglobin 30.2 pg (27.0-34.0); Mean Corpuscular Volume 92.1 fL (80.0-100.0); Mean Platelet Volume 7.8 fL (7.0-11.0); Mono # (Auto) 0.6 th/mm3 (0.0-0.9); Mono % (Auto) 7.5 % (0.0-8.0); Neut # (Auto) 4.9 th/mm3 (1.8-7.7); Neut % (Auto) 58.6 % (16.0-70.0); Platelet Count 209 th/mm3 (150-450); Red Blood Count 3.18 mil/mm3 (4.00-5.30); Red Cell Distribution Width 19.3 % (11.6-17.2); White Blood Count 8.4 th/mm3 (4.0-11.0)
[2018-08-25 04:44] LABS: Calcium 8.2 mg/dL (8.5-10.1); Carbon Dioxide 21.6 meq/L (21.0-32.0); Magnesium 1.8 mg/dL (1.5-2.5); Potassium 3.7 meq/L (3.5-5.1)
[2018-08-25] MEDS: Levothyroxine 112 MCG Tablet PO SCH (05:04)
[2018-08-25] MEDS: Morphine Sulfate 15 MG IR Tablet PO PRN ×3 (07:06→23:10)
--- NOTE | 2018-08-25 08:28 | P.PN ---
Subjective Interval history: seen with [employer] rep -TJ -- d/w- wires are dislodged on review of XR- multiple history in the past of dislodgements currently on SR on telemetry- HR in the 50s chronic pain- "Crohns and Lupus" afebrile, tolerating po well BM- occasional loose stools per patient from Crohns Physical Exam Vital signs: Vital Signs 08/24/18 11:59 08/24/18 12:00 08/24/18 15:58 Temperature 98.9 F 98.8 F Pulse Rate 102 H 72 52 L Respiratory Rate 17 16 Blood Pressure 113/58 L 123/60 Pulse Oximetry 100 100 08/24/18 16:00 08/24/18 20:00 08/25/18 00:00 Temperature 98.1 F 98.2 F Pulse Rate 49 L 77 59 L Respiratory Rate 18 18 Blood Pressure 128/64 121/56 L Pulse Oximetry 97 98 08/25/18 04:00 Temperature 98.3 F Pulse Rate 45 L Respiratory Rate 18 Blood Pressure 107/66 Pulse Oximetry 97 Intake & Output 08/24/18 08/25/18 08/25/18 18:59 06:59 18:59 Intake Total 1195 / 1195 200 / 200 Balance 1195 / 1195 200 / 200 Intake: IV 715 / 715 200 / 200 Azactam Inj 2 GM In NS Inj 100 200 / 200 200 / 200 ML @ 100 mls/hr IV.SIG Q6H SHUKRI Rx#:[id number] Vancomycin Inj 1,500 MG In NS 515 / 515 Inj 500 ML @ 250 mls/hr IV.SIG Q24H SHUKRI Rx#:[id number] Oral 480 / 480 Other: # Voids 4 Date of Last Bowel Movement 08/24/18 08/24/18 # Bowel Movements 1 Narrative: GENERAL: Alert and oriented x3. NAD SKIN: Warm and dry. Steri strips left chest wall NECK: Supple, trachea midline. No JVD. CARDIOVASCULAR: bradycardic RESPIRATORY: Breath sounds equal bilaterally. No accessory muscle use. GASTROINTESTINAL: Abdomen soft, Bowel sounds are normal, barely touching abdomen- patient winced MUSCULOSKELETAL: No cyanosis, or edema. moves all extremities spontaenously BACK: Nontender without obvious deformity. No CVA tenderness. - Urinary Catheter Management Indwelling Urethral Catheter Cath placed during this visit: yes, but has since been removed by the nurse Reason for continuing: Decision to DC catheter Removal date: 08/07/18 Removal time: 18:00 Results - Labs CBC & Chem 7: 08/25/18 04:05 08/25/18 04:05 Laboratory Results - last 24 hr 08/25/18 08/25/18 04:05 04:05 WBC 8.4 RBC 3.18 L Hgb 9.6 L Hct 29.3 L MCV 92.1 MCH 30.2 MCHC 32.7 RDW 19.3 H Plt Count 209 MPV 7.8 Neut % (Auto) 58.6 Lymph % (Auto) 28.1 [place] % (Auto) 7.5 Eos % (Auto) 4.5 H Baso % (Auto) 1.3 Neut # (Auto) 4.9 Lymph # (Auto) 2.4 [place] # (Auto) 0.6 Eos # (Auto) 0.4 Baso # (Auto) 0.1 WBC Differential . Differential Comment Auto diff final Sodium 144 Potassium 3.7 Chloride 116 H Carbon Dioxide 21.6 Anion Gap 6 BUN 19 H Creatinine 1.02 H Estimated GFR 60 L Random Glucose 86 Calcium 8.2 L Magnesium 1.8 Assessment and Plan - Plan 42 years old female NEURO: Chronic pain Possible seizures Continue morphine 15 mg p.o. every 8 hours and as needed Valium 10 mg p.o. every 8 hours EEG only if recurrent seizures, Seizure-like activity noticed on 08/03/2018 most likely secondary to decreased perfusion RESP: Acute hypoxemic respiratory failure-improving Extubated 08/05/2018, tolerating well, DuoNeb q6 and PRN Broad spectrum ABX as below Intubated 08/03/2018 for probable seizure, altered mental status and severe cardiogenic shock PH at the time of intubation was 6.9, lactic acid was 15 Acidosis has resolved continue to wean FiO2 as tolerated Continue EzPAP, IS CV: Severe cardiogenic shock-resolved Symptomatic bradycardia with hypotension-resolved AICD malfunction/probable dislodged pacemaker lead, status post lead extraction and placement of new leads Severe lactic acidosis-resolved 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 2D echo shows tricuspid valve endocarditis, ID following-antibiotics as below CVVH started 08/03 due to severe acidosis, now transition to HD Prior ICD pocket infection in December 2017 and February 2018. Recently replaced by Dr. Cervantes. Per device rep she did not follow-up for scheduled outpatient interrogation following device placement. On admission, interrogation shows pacemaker intermittently capturing per [employer] rep. Holding spironolactone 25 mg p.o. daily in view of renal failure Status post extensive fluid resuscitation, now HD with fluid removal Essential hypertension. Holding Norvasc, restart when appropriate = 08/08. Norvasc to start tomorrow as per nephrology. = 08/09. Blood pressure a little low in the 100s systolic. Will decrease amlodipine to 5 mg daily. = 08/10. Continue to monitor. Blood sugars acceptable. = 08/12. Continue IV antibiotics as per infectious disease. Cultures negative at this time. 08/25 PM interrogation this am- spoke with [employer] - [employer] rep- wires are all dislodeged call [facility] environmental services coordinator Dr. Morales-- he discussed with Dr Cervantes- revision will be done Monday GI: Crohn's disease Renal diet. Protonix to IV-change to PO States she is scheduled to follow-up with [facility] gastroenterology in the end of August Currently on stress dose steroids, changed to home dose of prednisone 30 mg daily = We will decrease dose of prednisone to 20 mg daily. This is above physiologic dosing. = Continue prednisone 20 mg daily. Appears to be more relaxed at this dose. 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 Hasn't followed up with gynecology in over a year. Endometriosis Beta hCG is negative. Hemoglobin is stable, can follow-up as an outpatient with gynecology. FEN/RENAL: Acute KI on chronic kidney disease with anuria- Resolved- creatinine normal - last HD was 08/06 Chronic kidney disease stage III Started on CVVH 08/03/18 due to anuria and severe metabolic acidosis CVVH changed to hemodialysis 08/04/18 as the blood pressure improved. Urine output slowly improving Nephrology Dr. Arrieta. Currently patient has a right femoral Vas-Cath. Patient states she has not had renal biopsy. She has been followed by nephrology at [facility]. = Nephrology following. Appreciate assistance. Renal function improving slowly. =08/15 with anion gap metabolic acidosis, likely secondary to resolving acute kidney injury. As per nephrology. Hypokalemia Potassium replacement = 08/09. Potassium 2.5. Replaced as per protocol. Additional potassium ordered today. Nephrology following. Appreciate assistance. Follow-up tomorrow. = 08/10. Potassium 3.1. Continue daily replacement as per nephrology. Appreciate assistance. = 08/11. Potassium 3.2. Replace and monitor. = 08/12. Potassium 3.2. Replace and monitor. = 08/13. Potassium 3.3. Replace. 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 She has undergone device removal on 2 prior occasions. Most recently was removed in February 2018 with wound VAC placement. Device replaced 06/27/18. She reported fever 102.7, however she is afebrile here. Continue renally dosed vancomycin, aztreonam, Flagyl 2D echo showed tricuspid valve endocarditis 1.7 x 0.5, however blood cultures 2 sets apparently remains negative Continue medical management. Leukocytosis improving = 08/09 leukocytosis continues improving. 13.8. Continue IV antibiotics as per infectious disease. Appreciate assistance. = 08/10. Leukocytosis improving 11.3. Continue broad-spectrum IV antibiotics as per infectious disease. = 08/13. Leukocytosis of 12. Continue IV antibiotics as per infectious disease. Appreciate assistance. =08/14. Discussed infectious disease. Continue IV antibiotics. =08/15. Discussed with nursing and case management in the ER. Continue IV antibiotics as per infectious disease- on azactam and Vancomycin RHEUM: Systemic lupus erythematosus On chronic steroids On chronic prednisone 30 mg p.o. daily for >2 years. In view of shock was placed hydrocortisone 100 mill grams IV every 8 hours. Hydrocortisone was reduced to 50 mg every 8 hours yesterday, restart prednisone 30 mg today and DC hydrocortisone Scheduled to follow-up with [facility] rheumatology end of August. = Blood pressure acceptable. - currently on 20 mg prednisone daily. HEME: Chronic anemia Thrombocytopenia most likely secondary to DIC/sepsis Transfuse blood and blood products as needed Transfuse 1 unit PRBC today with hemodialysis 08/06/2018 = Platelets 131. Improved. No signs of bleeding. Hemoglobin stable. ENDO: Hypothyroidism Continue Synthroid 112 mcg p.o. daily. Normal TSH. Insomnia Patient was not receiving as needed melatonin. Will make melatonin scheduled = 08/13. Patient still with poor sleep. Discussed sleep hygiene. Will add Ativan at night. =08/14. Sleep improved. Continue to monitor. Labile mood. pleasant and cooperative on exam today per previous notes Patient refusing to be seen by psychiatry doctor. [place] sdr likely. patient is noted on/off disrupting new AICD as noted with pauses, labs are normal , lytes are normal PROPH: SCDs for DVT prophylaxis. Hold pharmacologic DVT prophylaxis at this time due to recent invasive procedure, thrombocytopenia If consistently stays above 90, place on heparin subcu Protonix 40 mg daily for stress ulcer prophylaxis. ACCESS: New right IJ central line, right radial arterial line 08/03/18- DCd right femoral Vas-Cath placed 08/03/18-removed 08/09. Discharge Planning: Continues treatment inpatient with IV antibiotics for endocarditis. We will need clearance from infectious disease, nephrology. PT following. Midline placement 08/17/18. Removed plan for PICC line Not a candidate for DC home with IV abx as patient is not reliable and is disrupting IV lines, AICD PM interrogation tomorrow morning 08/25, as noted abnormal pacing
[2018-08-25] MEDS: Sodium Bicarbonate 650 MG Tablet PO SCH ×3 (08:54→17:27)
[2018-08-25] MEDS: Lisinopril 5 MG Tablet PO SCH (08:56)
[2018-08-25] MEDS: Pantoprazole Inj 40 MG Vial IV.PUSH SCH (08:56)
[2018-08-25] MEDS: predniSONE 20 MG Tablet PO SCH (08:57)
[2018-08-25] MEDS: Heparin Central Flush 100 UNIT/ML 5 ML Vial IV.FLUSH SCH (08:57)
[2018-08-25] MEDS: amLODIPine 5 MG Tablet PO SCH (08:58)
[2018-08-25] MEDS: Senna/Docusate Sodium 8.6/50 MG Tablet PO SCH ×2 (09:07→21:52)
[2018-08-25] MEDS: Spironolactone 25 MG Tablet PO SCH ×2 (09:12→17:27)
[2018-08-25] MEDS: Vancomycin Inj 1,500 MG in Sodium Chlor 0.9% Inj 500 ML IV.SIG SCH (13:27)
--- NOTE | 2018-08-25 14:18 | XR ---
EXAM DATE: 08/25/2018 12:00 AM EDT AGE/SEX: 42 years / Female INDICATIONS: Cough. CLINICAL DATA: This is the patient's subsequent encounter. Patient reports that signs and symptoms h ave been present for 2 weeks and indicates a pain score of 0/10. MEDICAL/SURGICAL HISTORY: . Chronic renal failure. Hypothyroidism. Gastroparesis, Anxiety, Brug ada Syndrome, Crohn's Disease, Endometriosis, Hypokalemia, Interstitial cystitis, Lupus. . Appendect jazlyn. Pacemaker. COMPARISON: . FINDINGS: The heart is normal. The pulmonary vascular pattern is normal. The lungs are clear. Left subclavian m ultilead pacemaker is noted with its tips in the superior vena cava. Left-sided PICC line has its tip in the right atrium. CONCLUSION: No acute cardiopulmonary disease. Electronically signed by: Javid Johnson MD 08/25/2018 2:17 PM EDT
--- NOTE | 2018-08-25 19:31 | ECG ---
Date Performed: 08/25/2018 Time Performed: 12:50:03 PTAGE: 42 years EKG: Sinus rhythm NORMAL ECG PREVIOUS TRACING : 08/04/2018 16.39 Compared to previous tracing, no pacing present DOCTOR: Sandra Craig Interpretating Date/Time 08/25/2018 19:30:11
[2018-08-25] MEDS: Melatonin 5 MG Tablet PO SCH (21:53)
[2018-08-25] MEDS: LORazepam 1 MG Tablet PO SCH (21:53)
[2018-08-26] MEDS: Aztreonam Inj 2 GM in Sodium Chloride 0.9% Inj 100 ML IV.SIG SCH ×4 (03:01→21:16)
[2018-08-26] MEDS: Morphine Sulfate Inj 2 MG/ML Vial IV.PUSH PRN ×5 (03:02→21:14)
[2018-08-26] MEDS: Morphine Sulfate 15 MG IR Tablet PO PRN ×3 (06:25→23:16)
[2018-08-26] MEDS: Levothyroxine 112 MCG Tablet PO SCH (06:25)
[2018-08-26] MEDS: predniSONE 20 MG Tablet PO SCH (08:59)
[2018-08-26] MEDS: Senna/Docusate Sodium 8.6/50 MG Tablet PO SCH ×2 (09:00→21:10)
[2018-08-26] MEDS: Lisinopril 5 MG Tablet PO SCH (09:01)
[2018-08-26] MEDS: amLODIPine 5 MG Tablet PO SCH (09:01)
[2018-08-26] MEDS: Sodium Bicarbonate 650 MG Tablet PO SCH ×3 (09:01→17:01)
[2018-08-26] MEDS: Heparin Central Flush 100 UNIT/ML 5 ML Vial IV.FLUSH SCH (09:02)
[2018-08-26] MEDS: Spironolactone 25 MG Tablet PO SCH ×2 (09:11→17:01)
--- NOTE | 2018-08-26 09:55 | P.PN ---
Subjective Interval history: afebrile, good po complains of vaginal slightitching with whitish opaque discharge "gets yeast infection" on telemetry- occasionally paced rhythm rate variable Physical Exam Vital signs: Vital Signs 08/25/18 12:00 08/25/18 16:00 08/25/18 20:00 Temperature 98.5 F 98.4 F 98.2 F Pulse Rate 80 57 L 80 Respiratory Rate 20 20 18 Blood Pressure 112/55 L 136/71 123/79 Pulse Oximetry 97 98 98 08/26/18 00:00 08/26/18 04:00 08/26/18 08:00 Temperature 97.9 F 98.0 F 97.7 F Pulse Rate 69 48 L 67 Respiratory Rate 18 18 19 Blood Pressure 98/68 L 111/63 110/55 L Pulse Oximetry 98 99 98 Intake & Output 08/25/18 08/26/18 08/26/18 18:59 06:59 18:59 Intake Total 715 / 715 200 / 200 Output Total 2900 / 2900 Balance -2185 / -2185 200 / 200 Weight 78.6 kg Intake: IV 715 / 715 200 / 200 Azactam Inj 2 GM In NS Inj 100 200 / 200 200 / 200 ML @ 100 mls/hr IV.SIG Q6H SHUKRI Rx#:[id number] Vancomycin Inj 1,500 MG In NS 515 / 515 Inj 500 ML @ 250 mls/hr IV.SIG Q24H SHUKRI Rx#:[id number] Oral 0 / 0 Output: Urine 2900 / 2900 Other: # Voids 5 Date of Last Bowel Movement 08/24/18 # Bowel Movements 2 Narrative: GENERAL: Alert and oriented x3. NAD SKIN: Warm and dry. Steri strips left chest wall NECK: Supple, trachea midline. No JVD. CARDIOVASCULAR: telemetry- paced currently - rate 80s RESPIRATORY: Breath sounds equal bilaterally. No accessory muscle use. GASTROINTESTINAL: Abdomen soft, Bowel sounds are normal, non tender today MUSCULOSKELETAL: No cyanosis, or edema. moves all extremities spontaenously BACK: Nontender without obvious deformity. No CVA tenderness. - Urinary Catheter Management Indwelling Urethral Catheter Cath placed during this visit: yes, but has since been removed by the nurse Reason for continuing: Decision to DC catheter Removal date: 08/07/18 Removal time: 18:00 Results - Labs CBC & Chem 7: 08/25/18 04:05 08/25/18 04:05 - Imaging Impressions Chest X-Ray 08/25/18 00:00 CONCLUSION: No acute cardiopulmonary disease. Assessment and Plan - Plan 42 years old female NEURO: Chronic pain Possible seizures Continue morphine 15 mg p.o. every 8 hours and as needed Valium 10 mg p.o. every 8 hours EEG only if recurrent seizures, Seizure-like activity noticed on 08/03/2018 most likely secondary to decreased perfusion RESP: Acute hypoxemic respiratory failure-improving Extubated 08/05/2018, tolerating well, DuoNeb q6 and PRN Broad spectrum ABX as below Intubated 08/03/2018 for probable seizure, altered mental status and severe cardiogenic shock PH at the time of intubation was 6.9, lactic acid was 15 Acidosis has resolved continue to wean FiO2 as tolerated Continue EzPAP, IS CV: Severe cardiogenic shock-resolved Symptomatic bradycardia with hypotension-resolved AICD malfunction/probable dislodged pacemaker lead, status post lead extraction and placement of new leads Severe lactic acidosis-resolved 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 2D echo shows tricuspid valve endocarditis, ID following-antibiotics as below CVVH started 08/03 due to severe acidosis, now transition to HD Prior ICD pocket infection in December 2017 and February 2018. Recently replaced by Dr. Cervantes. Per device rep she did not follow-up for scheduled outpatient interrogation following device placement. On admission, interrogation shows pacemaker intermittently capturing per [employer] rep. Holding spironolactone 25 mg p.o. daily in view of renal failure Status post extensive fluid resuscitation, now HD with fluid removal Essential hypertension. Holding Norvasc, restart when appropriate = 08/08. Norvasc to start tomorrow as per nephrology. = 08/09. Blood pressure a little low in the 100s systolic. Will decrease amlodipine to 5 mg daily. = 08/10. Continue to monitor. Blood sugars acceptable. = 08/12. Continue IV antibiotics as per infectious disease. Cultures negative at this time. 08/25 PM interrogation this am- spoke with [place] - [employer] rep- wires are all dislodeged call [facility] front sight attacher Dr. Morales-- he discussed with Dr Cervantes- revision will be done Monday Yeast vaginitis - give diflucan 200 mg po x 1 dose today 08.26 Crohn's disease Renal diet. Protonix to IV-change to PO States she is scheduled to follow-up with [facility] gastroenterology in the end of August Currently on stress dose steroids, changed to home dose of prednisone 30 mg daily = We will decrease dose of prednisone to 20 mg daily. This is above physiologic dosing. = Continue prednisone 20 mg daily. Appears to be more relaxed at this dose. 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 Hasn't followed up with gynecology in over a year. Endometriosis Beta hCG is negative. Hemoglobin is stable, can follow-up as an outpatient with gynecology. FEN/RENAL: Acute KI on chronic kidney disease with anuria- Resolved- creatinine normal - last HD was 08/06 Chronic kidney disease stage III Started on CVVH 08/03/18 due to anuria and severe metabolic acidosis CVVH changed to hemodialysis 08/04/18 as the blood pressure improved. Urine output slowly improving Nephrology Dr. Arrieta. Currently patient has a right femoral Vas-Cath. Patient states she has not had renal biopsy. She has been followed by nephrology at [facility]. = Nephrology following. Appreciate assistance. Renal function improving slowly. =08/15 with anion gap metabolic acidosis, likely secondary to resolving acute kidney injury. As per nephrology. Hypokalemia Potassium replacement = 08/09. Potassium 2.5. Replaced as per protocol. Additional potassium ordered today. Nephrology following. Appreciate assistance. Follow-up tomorrow. = 08/10. Potassium 3.1. Continue daily replacement as per nephrology. Appreciate assistance. = 08/11. Potassium 3.2. Replace and monitor. = 08/12. Potassium 3.2. Replace and monitor. = 08/13. Potassium 3.3. Replace. 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 She has undergone device removal on 2 prior occasions. Most recently was removed in February 2018 with wound VAC placement. Device replaced 06/27/18. She reported fever 102.7, however she is afebrile here. Continue renally dosed vancomycin, aztreonam, Flagyl 2D echo showed tricuspid valve endocarditis 1.7 x 0.5, however blood cultures 2 sets apparently remains negative Continue medical management. Leukocytosis improving = 08/09 leukocytosis continues improving. 13.8. Continue IV antibiotics as per infectious disease. Appreciate assistance. = 08/10. Leukocytosis improving 11.3. Continue broad-spectrum IV antibiotics as per infectious disease. = 08/13. Leukocytosis of 12. Continue IV antibiotics as per infectious disease. Appreciate assistance. =08/14. Discussed infectious disease. Continue IV antibiotics. =08/15. Discussed with nursing and case management in the ER. Continue IV antibiotics as per infectious disease- on azactam and Vancomycin RHEUM: Systemic lupus erythematosus On chronic steroids On chronic prednisone 30 mg p.o. daily for >2 years. In view of shock was placed hydrocortisone 100 mill grams IV every 8 hours. Hydrocortisone was reduced to 50 mg every 8 hours yesterday, restart prednisone 30 mg today and DC hydrocortisone Scheduled to follow-up with [facility] rheumatology end of August. = Blood pressure acceptable. - currently on 20 mg prednisone daily. HEME: Chronic anemia Thrombocytopenia most likely secondary to DIC/sepsis Transfuse blood and blood products as needed Transfuse 1 unit PRBC with hemodialysis 08/06/2018 = Platelets 131. Improved. No signs of bleeding. Hemoglobin stable. ENDO: Hypothyroidism Continue Synthroid 112 mcg p.o. daily. Normal TSH. Insomnia Patient was not receiving as needed melatonin. Will make melatonin scheduled = 08/13. Patient still with poor sleep. Discussed sleep hygiene. Will add Ativan at night. =08/14. Sleep improved. Continue to monitor. Labile mood. pleasant and cooperative on exam per previous notes Patient refusing to be seen by psychiatry doctor. [place] sdr likely. patient is noted on/off disrupting new AICD as noted with pauses, labs are normal , lytes are normal PROPH: SCDs for DVT prophylaxis. Hold pharmacologic DVT prophylaxis at this time due to recent invasive procedure, thrombocytopenia If consistently stays above 90, place on heparin subcu Protonix 40 mg daily for stress ulcer prophylaxis. ACCESS: New right IJ central line, right radial arterial line 08/03/18- DCd right femoral Vas-Cath placed 08/03/18-removed 08/09. Discharge Planning: Continues treatment inpatient with IV antibiotics for endocarditis. We will need clearance from infectious disease, nephrology. PT following. Midline placement 08/17/18. Removed plan for PICC line Not a candidate for DC home with IV abx as patient is not reliable and is disrupting IV lines, AICD PM interrogation tomorrow morning 08/25, as noted abnormal pacing
[2018-08-26] MEDS ORDERED: Pharmacy Ordered Lab Info OTHER ONE (12:45)
[2018-08-26] MEDS: Vancomycin Inj 1,500 MG in Sodium Chlor 0.9% Inj 500 ML IV.SIG SCH (13:19)
[2018-08-26] MEDS: Melatonin 5 MG Tablet PO SCH (21:16)
[2018-08-26] MEDS: LORazepam 1 MG Tablet PO SCH (21:16)
[2018-08-27] MEDS: Morphine Sulfate Inj 2 MG/ML Vial IV.PUSH PRN ×4 (03:05→21:45)
[2018-08-27] MEDS: Aztreonam Inj 2 GM in Sodium Chloride 0.9% Inj 100 ML IV.SIG SCH ×4 (03:11→21:24)
[2018-08-27] MEDS: Levothyroxine 112 MCG Tablet PO SCH (06:39)
[2018-08-27] MEDS: Heparin Central Flush 100 UNIT/ML 5 ML Vial IV.FLUSH SCH (09:20)
[2018-08-27] MEDS: predniSONE 20 MG Tablet PO SCH ×2 (09:21→17:08)
[2018-08-27] MEDS: Morphine Sulfate 15 MG IR Tablet PO PRN ×2 (09:21→17:41)
[2018-08-27] MEDS: Lisinopril 5 MG Tablet PO SCH (09:22)
[2018-08-27] MEDS: amLODIPine 5 MG Tablet PO SCH (09:22)
[2018-08-27] MEDS: Sodium Bicarbonate 650 MG Tablet PO SCH ×3 (09:22→17:07)
[2018-08-27] MEDS: Senna/Docusate Sodium 8.6/50 MG Tablet PO SCH (09:23)
[2018-08-27] MEDS: Spironolactone 25 MG Tablet PO SCH ×3 (09:32→17:09)
--- NOTE | 2018-08-27 09:38 | P.PN ---
Subjective Interval history: on telemetry- occasional paced beat- rate 40s-50s BP sable states vaginal discharge improved- "still a little" Physical Exam Vital signs: Vital Signs 08/26/18 12:00 08/26/18 16:00 08/26/18 20:00 Temperature 98.7 F 97.8 F 98.1 F Pulse Rate 47 L 64 71 Respiratory Rate 19 19 18 Blood Pressure 126/92 H 118/61 128/77 Pulse Oximetry 97 98 98 08/26/18 21:20 08/27/18 00:00 08/27/18 03:13 Temperature 98.2 F Pulse Rate 77 Respiratory Rate 19 18 18 Blood Pressure 119/80 Pulse Oximetry 99 08/27/18 04:00 08/27/18 06:48 Temperature 98.8 F Pulse Rate 60 Respiratory Rate 18 18 Blood Pressure 105/47 L Pulse Oximetry 100 Intake & Output 08/26/18 08/27/18 08/27/18 18:59 06:59 18:59 Intake Total 715 / 715 642 / 642 Balance 715 / 715 642 / 642 Weight 78.9 kg Intake: IV 715 / 715 200 / 200 Azactam Inj 2 GM In NS Inj 100 200 / 200 200 / 200 ML @ 100 mls/hr IV.SIG Q6H SHUKRI Rx#:[id number] Vancomycin Inj 1,500 MG In NS 515 / 515 Inj 500 ML @ 250 mls/hr IV.SIG Q24H SHUKRI Rx#:[id number] Oral 442 / 442 Other 0 / 0 Other: Other Intake Source Saline Solution # Voids 15 Date of Last Bowel Movement 08/24/18 08/26/18 # Bowel Movements 3 3 Narrative: GENERAL: Alert and oriented x3. NAD SKIN: Warm and dry. Steri strips left chest wall NECK: Supple, trachea midline. No JVD. CARDIOVASCULAR: telemetry- paced currently - telemetry reviewed occasional rate in the 40s RESPIRATORY: Breath sounds equal bilaterally. No accessory muscle use. GASTROINTESTINAL: Abdomen soft, Bowel sounds are normal, non tender today MUSCULOSKELETAL: No cyanosis, or edema. moves all extremities spontaenously BACK: Nontender without obvious deformity. No CVA tenderness. - Urinary Catheter Management Indwelling Urethral Catheter Cath placed during this visit: yes, but has since been removed by the nurse Reason for continuing: Decision to DC catheter Removal date: 08/07/18 Removal time: 18:00 Results - Labs CBC & Chem 7: 08/25/18 04:05 08/25/18 04:05 Laboratory Results - last 24 hr 08/26/18 12:24 Vancomycin Trough 14.0 H Assessment and Plan - Plan 42 years old female NEURO: Chronic pain Possible seizures Continue morphine 15 mg p.o. every 8 hours and as needed Valium 10 mg p.o. every 8 hours- decrease to 5 mg po q8 prn EEG only if recurrent seizures, Seizure-like activity noticed on 08/03/2018 most likely secondary to decreased perfusion RESP: Acute hypoxemic respiratory failure-improved Extubated 08/05/2018, tolerating well, DuoNeb q6 and PRN Broad spectrum ABX as below Intubated 08/03/2018 for probable seizure, altered mental status and severe cardiogenic shock PH at the time of intubation was 6.9, lactic acid was 15 Acidosis has resolved continue to wean FiO2 as tolerated Continue EzPAP, IS CV: Severe cardiogenic shock-resolved Symptomatic bradycardia with hypotension-resolved AICD malfunction/probable dislodged pacemaker lead, status post lead extraction and placement of new leads Severe lactic acidosis-resolved 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 2D echo shows tricuspid valve endocarditis, ID following-antibiotics as below CVVH started 08/03 due to severe acidosis, now transition to HD Prior ICD pocket infection in December 2017 and February 2018. Recently replaced by Dr. Cervantes. Per device rep she did not follow-up for scheduled outpatient interrogation following device placement. On admission, interrogation shows pacemaker intermittently capturing per [employer] rep. Holding spironolactone 25 mg p.o. daily in view of renal failure Status post extensive fluid resuscitation, now HD with fluid removal Essential hypertension. Holding Norvasc, restart when appropriate = 08/08. Norvasc to start tomorrow as per nephrology. = 08/09. Blood pressure a little low in the 100s systolic. Will decrease amlodipine to 5 mg daily. = 08/10. Continue to monitor. Blood sugars acceptable. = 08/12. Continue IV antibiotics as per infectious disease. Cultures negative at this time. 08/25 PM interrogation this am- spoke with TJ - [employer] rep- wires are all dislodeged call [employer] communication center operator Dr. Morales-- he discussed with Dr Cervantes- revision will be done Monday - pathology lab technician called- procedure cancelled Yeast vaginitis- improved - but still some - give diflucan 200 mg po x 1 dose today . - give x 1 NMonistal vaginal supp tonite x 1 Crohn's disease Renal diet. Protonix PO States she is scheduled to follow-up with [facility] gastroenterology in the end of August Currently on stress dose steroids, changed to home dose of prednisone 30 mg daily = We will decrease dose of prednisone to 20 mg daily. T = Continue prednisone 20 mg daily. Appears to be more relaxed at this dose. 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 Hasn't followed up with gynecology in over a year. Endometriosis Beta hCG is negative. Hemoglobin is stable, can follow-up as an outpatient with gynecology. FEN/RENAL: Acute KI on chronic kidney disease with anuria- Resolved- creatinine normal - last HD was 08/06 Chronic kidney disease stage III Started on CVVH 08/03/18 due to anuria and severe metabolic acidosis CVVH changed to hemodialysis 08/04/18 as the blood pressure improved. Urine output slowly improving Nephrology Dr. Arrieta. Currently patient has a right femoral Vas-Cath. Patient states she has not had renal biopsy. She has been followed by nephrology at [facility]. = Nephrology following. Appreciate assistance. Renal function improving slowly. =08/15 with anion gap metabolic acidosis, likely secondary to resolving acute kidney injury. As per nephrology. Hypokalemia- improved Potassium replacement = 08/09. Potassium 2.5. Replaced as per protocol. Additional potassium ordered today. Nephrology following. Appreciate assistance. Follow-up tomorrow. = 08/10. Potassium 3.1. Continue daily replacement as per nephrology. Appreciate assistance. = 08/11. Potassium 3.2. Replace and monitor. = 08/12. Potassium 3.2. Replace and monitor. = 08/13. Potassium 3.3. Replace. 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 She has undergone device removal on 2 prior occasions. Most recently was removed in February 2018 with wound VAC placement. Device replaced 06/27/18. She reported fever 102.7, however she is afebrile here. Continue renally dosed vancomycin, aztreonam, Flagyl 2D echo showed tricuspid valve endocarditis 1.7 x 0.5, however blood cultures 2 sets apparently remains negative Continue medical management. Leukocytosis improving = 08/09 leukocytosis continues improving. 13.8. Continue IV antibiotics as per infectious disease. Appreciate assistance. = 08/10. Leukocytosis improving 11.3. Continue broad-spectrum IV antibiotics as per infectious disease. = 08/13. Leukocytosis of 12. Continue IV antibiotics as per infectious disease. Appreciate assistance. =08/14. Discussed infectious disease. Continue IV antibiotics. =08/15. Discussed with nursing and case management in the ER. Continue IV antibiotics as per infectious disease- on azactam and Vancomycin RHEUM: Systemic lupus erythematosus On chronic steroids On chronic prednisone 30 mg p.o. daily for >2 years. In view of shock was placed hydrocortisone 100 mill grams IV every 8 hours. Hydrocortisone was reduced to 50 mg every 8 hours yesterday, restart prednisone 30 mg today and DC hydrocortisone Scheduled to follow-up with [facility] rheumatology end of August. = Blood pressure acceptable. - currently on 20 mg prednisone daily. HEME: Chronic anemia Thrombocytopenia most likely secondary to DIC/sepsis Transfuse blood and blood products as needed Transfuse 1 unit PRBC with hemodialysis 08/06/2018 = Platelets 131. Improved. No signs of bleeding. Hemoglobin stable. ENDO: Hypothyroidism Continue Synthroid 112 mcg p.o. daily. Normal TSH. Insomnia Patient was not receiving as needed melatonin. Will make melatonin scheduled = 08/13. Patient still with poor sleep. Discussed sleep hygiene. Will add Ativan at night. =08/14. Sleep improved. Continue to monitor. Labile mood. pleasant and cooperative on exam per previous notes Patient refusing to be seen by psychiatry doctor. [place] sdr likely. patient is noted on/off disrupting new AICD as noted with pauses, labs are normal , lytes are normal PROPH: SCDs for DVT prophylaxis. Hold pharmacologic DVT prophylaxis at this time due to recent invasive procedure, thrombocytopenia If consistently stays above 90, place on heparin subcu Protonix 40 mg daily for stress ulcer prophylaxis. ACCESS: New right IJ central line, right radial arterial line 08/03/18- DCd right femoral Vas-Cath placed 08/03/18-removed 08/09. Discharge Planning: Continues treatment inpatient with IV antibiotics for endocarditis. We will need clearance from infectious disease, nephrology. PT following. Midline placement 08/17/18. Removed plan for PICC line Not a candidate for DC home with IV abx as patient is not reliable and is disrupting IV lines, AICD PM interrogation tomorrow morning 08/25, as noted abnormal pacing
[2018-08-27] MEDS ORDERED: diazePAM 5 MG Tablet PO PRN (10:15)
--- NOTE | 2018-08-27 11:33 | P.PN ---
Subjective Interval history: Don't know what happen Physical Exam Vital signs: Vital Signs 08/26/18 12:00 08/26/18 16:00 08/26/18 20:00 Temperature 98.7 F 97.8 F 98.1 F Pulse Rate 47 L 64 71 Respiratory Rate 19 19 18 Blood Pressure 126/92 H 118/61 128/77 Pulse Oximetry 97 98 98 08/26/18 21:20 08/27/18 00:00 08/27/18 03:13 Temperature 98.2 F Pulse Rate 77 Respiratory Rate 19 18 18 Blood Pressure 119/80 Pulse Oximetry 99 08/27/18 04:00 08/27/18 06:48 08/27/18 08:00 Temperature 98.8 F 98.1 F Pulse Rate 60 66 Respiratory Rate 18 18 18 Blood Pressure 105/47 L 107/64 Pulse Oximetry 100 99 Intake & Output 08/26/18 08/27/18 08/27/18 18:59 06:59 18:59 Intake Total 715 / 715 642 / 642 Balance 715 / 715 642 / 642 Weight 78.9 kg Intake: IV 715 / 715 200 / 200 Azactam Inj 2 GM In NS Inj 100 200 / 200 200 / 200 ML @ 100 mls/hr IV.SIG Q6H SHUKRI Rx#:[id number] Vancomycin Inj 1,500 MG In NS 515 / 515 Inj 500 ML @ 250 mls/hr IV.SIG Q24H SHUKRI Rx#:[id number] Oral 442 / 442 Other 0 / 0 Other: Other Intake Source Saline Solution # Voids 15 Date of Last Bowel Movement 08/24/18 08/26/18 # Bowel Movements 3 3 - Constitutional no acute distress - Routine HEENT Exam Head: Present: normocephalic Eye: Present: PERRL ENT: Present: mucous membranes moist - Routine Respiratory Exam Present: CTA bilaterally - Routine Cardiovascular Exam Present: RRR, bradycardia - Routine Abdominal Exam Present: soft - Routine Neurological Exam Present: oriented X3 - Detailed Neurological Exam: Coma Scale Eye Opening: Spontaneous Verbal Response: Oriented Motor Response: Obey commands Ruth Coma Scale Total: 15 - Urinary Catheter Management Indwelling Urethral Catheter Cath placed during this visit: yes, but has since been removed by the nurse Reason for continuing: Decision to DC catheter Removal date: 08/07/18 Removal time: 18:00 Results - Labs CBC & Chem 7: 08/25/18 04:05 08/25/18 04:05 Laboratory Results - last 24 hr 08/26/18 12:24 Vancomycin Trough 14.0 H Assessment and Plan - Assessment (1) ICD (implantable cardioverter-defibrillator) malfunction Code(s): T82.118A - Breakdown (mechanical) of other cardiac electronic device, initial encounter Status: Acute Plan: Mrs Hernandez has an hx of syncope, long QT syndrome with previous ICD implanted. In the last 2 years, she had multiple intervention. She had a left sided ICD that was removed due to infection. She had a subpectoral device, a device with a very, very, very low risk of infection, that was removed due to infection. She had a right sided device insertion. She was admitted at the end of Jul 2018 due to dislodgement and severe bradycardia. Temporary device was inserted and new leads were implanted. Currently, the device was interrogated and leads dislodgement were identified. Aug 08, 2018 chest Xray shows lead in good position. Xray from the Aug shows leads all the way to the junction of SVC and right atrium. There is some possible comments now as in the past about malingering. I had to intervene on Mrs Gómez donis, far more than my usual patient. I don't it is fair for Mrs Hernandez and for me to proceed with lead revision or new leads insertion. I want an other implanter to be consulted and proceed with lead revision. I don't feel comfortable intervening on Mrs Hernandez. Currently she is stable. HR ok. BP ok. I discussed the case with Dr Adam, and requested from her to consult an other implanter. While waiting for an other product development consultant, if an emergency rise, I will be available and will do the necessary. case also discussed with Mrs Hernandez and the nurse. (2) Brugada syndrome Code(s): I49.8 - Other specified cardiac arrhythmias Status: Acute - Plan patient has an hx of Long QT and syncope
[2018-08-27] MEDS: Vancomycin Inj 1,500 MG in Sodium Chlor 0.9% Inj 500 ML IV.SIG SCH (13:00)
[2018-08-27] MEDS: LORazepam 1 MG Tablet PO SCH (21:17)
[2018-08-27] MEDS: Melatonin 5 MG Tablet PO SCH (21:23)
[2018-08-28] MEDS: Senna/Docusate Sodium 8.6/50 MG Tablet PO SCH ×3 (00:49→21:39)
[2018-08-28] MEDS: Morphine Sulfate 15 MG IR Tablet PO PRN ×3 (02:25→18:46)
[2018-08-28] MEDS: Levothyroxine 112 MCG Tablet PO SCH (05:02)
[2018-08-28] MEDS: Aztreonam Inj 2 GM in Sodium Chloride 0.9% Inj 100 ML IV.SIG SCH ×4 (05:02→22:16)
[2018-08-28] MEDS: Morphine Sulfate Inj 2 MG/ML Vial IV.PUSH PRN ×5 (05:17→21:36)
--- NOTE | 2018-08-28 09:11 | P.PN ---
Subjective Interval history: awake and alert HR- angela - telemetry SR, occasional skipped beats no complains Physical Exam Vital signs: Vital Signs 08/27/18 12:00 08/27/18 16:00 08/27/18 20:00 Temperature 98.0 F 98.1 F 98.9 F Pulse Rate 64 85 74 Respiratory Rate 18 18 15 Blood Pressure 134/63 118/67 118/81 Pulse Oximetry 100 99 97 08/28/18 00:00 08/28/18 04:00 Temperature 98.5 F 97.8 F Pulse Rate 41 L 48 L Respiratory Rate 14 14 Blood Pressure 102/72 142/68 H Pulse Oximetry 97 99 Intake & Output 08/27/18 08/28/18 08/28/18 18:59 06:59 18:59 Intake Total 715 / 715 680 / 680 Balance 715 / 715 680 / 680 Weight 79.4 kg Intake: IV 715 / 715 200 / 200 Azactam Inj 2 GM In NS Inj 100 200 / 200 200 / 200 ML @ 100 mls/hr IV.SIG Q6H SHUKRI Rx#:[id number] Vancomycin Inj 1,500 MG In NS 515 / 515 Inj 500 ML @ 250 mls/hr IV.SIG Q24H SHUKRI Rx#:[id number] Oral 480 / 480 Other: # Voids 3 4 Date of Last Bowel Movement 08/26/18 08/27/18 Narrative: Alert and oriented x3. NAD SKIN: Warm and dry. Steri strips left chest wall NECK: Supple, trachea midline. No JVD. CARDIOVASCULAR: telemetry - sinus - HR 40s, occasional premature beats RESPIRATORY: Breath sounds equal bilaterally. No accessory muscle use. GASTROINTESTINAL: Abdomen soft, Bowel sounds are normal, non tender today MUSCULOSKELETAL: No cyanosis, or edema. moves all extremities spontaenously BACK: Nontender without obvious deformity. No CVA tenderness. - Urinary Catheter Management Indwelling Urethral Catheter Cath placed during this visit: yes, but has since been removed by the nurse Reason for continuing: Decision to DC catheter Removal date: 08/07/18 Removal time: 18:00 Results - Labs CBC & Chem 7: 08/25/18 04:05 08/25/18 04:05 Assessment and Plan - Plan 42 years old female NEURO: Chronic pain Possible seizures Continue morphine 15 mg p.o. every 8 hours and as needed Valium 10 mg p.o. every 8 hours- decrease to 5 mg po q8 prn EEG only if recurrent seizures, Seizure-like activity noticed on 08/03/2018 most likely secondary to decreased perfusion RESP: Acute hypoxemic respiratory failure-improved Extubated 08/05/2018, tolerating well, DuoNeb q6 and PRN Broad spectrum ABX as below S/P Intubated 08/03/2018 for probable seizure, altered mental status and severe cardiogenic shock PH at the time of intubation was 6.9, lactic acid was 15 Acidosis has resolved continue to wean FiO2 as tolerated Continue EzPAP, IS Severe cardiogenic shock-resolved AICD malfunction/probable dislodged pacemaker lead, status post lead extraction and placement of new leads Severe lactic acidosis-resolved 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 2D echo shows tricuspid valve endocarditis, ID following-antibiotics as below CVVH started 08/03 due to severe acidosis, now transition to HD Prior ICD pocket infection in December 2017 and February 2018. Recently replaced by Dr. Cervantes. Per device rep she did not follow-up for S/ Holding spironolactone 25 mg p.o. daily in view of renal failure Essential hypertension. H - restarted Amlodpine 2.5 mg daily 10.23 PM wires dislodged- 08/25 - PM interrogated -I spoke with TJ - [employer] rep - wires are all dislodged- occasionally capturing Cardiology consulted- Dr. Edinson Cervantes was consulted- please see his notes 08/27 08/27- d/w Dr Morales - consult Dr. 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 She has undergone device removal on 2 prior occasions. Most recently was removed in February 2018 with wound VAC placement. Device replaced 06/27/18. She reported fever 102.7, however she is afebrile here. Continue renally dosed vancomycin, aztreonam, Flagyl 2D echo showed tricuspid valve endocarditis 1.7 x 0.5, however blood cultures 2 sets apparently remains negative Continue medical management. Leukocytosis improving = 10/4 leukocytosis continues improving. 13.8. Continue IV antibiotics as per infectious disease. Appreciate assistance. = 08/10. Leukocytosis improving 11.3. Continue broad-spectrum IV antibiotics as per infectious disease. = 08/13. Leukocytosis of 12. Continue IV antibiotics as per infectious disease. Appreciate assistance. =08/14. Discussed infectious disease. Continue IV antibiotics. =08/15. Discussed with nursing and case management in the ER. Continue IV antibiotics as per infectious disease- on azactam and Vancomycin Yeast vaginitis- improved - but still some - give diflucan 200 mg po x 1 dose today . - give x 1 NMonistal vaginal supp tonite x 1 Crohn's disease Renal diet. Protonix PO States she is scheduled to follow-up with [facility] gastroenterology in the end of August Currently on stress dose steroids, changed to home dose of prednisone 30 mg daily = We will decrease dose of prednisone to 20 mg daily. T = Continue prednisone 20 mg daily. Appears to be more relaxed at this dose. 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 Hasn't followed up with gynecology in over a year. Endometriosis Beta hCG is negative. Hemoglobin is stable, can follow-up as an outpatient with gynecology. FEN/RENAL: Acute KI on chronic kidney disease with anuria- Resolved- creatinine normal - last HD was 08/06 Chronic kidney disease stage III Started on CVVH 08/03/18 due to anuria and severe metabolic acidosis CVVH changed to hemodialysis 08/04/18 as the blood pressure improved. Urine output slowly improving Nephrology Dr. Arrieta. Currently patient has a right femoral Vas-Cath. Patient states she has not had renal biopsy. She has been followed by nephrology at [facility]. = Nephrology following. Appreciate assistance. Renal function improving slowly. =08/15 with anion gap metabolic acidosis, likely secondary to resolving acute kidney injury. As per nephrology. Hypokalemia- improved Potassium replacement = 08/09. Potassium 2.5. Replaced as per protocol. Additional potassium ordered today. Nephrology following. Appreciate assistance. Follow-up tomorrow. = 08/10. Potassium 3.1. Continue daily replacement as per nephrology. Appreciate assistance. = 08/11. Potassium 3.2. Replace and monitor. = 08/12. Potassium 3.2. Replace and monitor. = 08/13. Potassium 3.3. Replace. I RHEUM: Systemic lupus erythematosus On chronic steroids On chronic prednisone 30 mg p.o. daily for >2 years. In view of shock was placed hydrocortisone 100 mill grams IV every 8 hours. Hydrocortisone was reduced to 50 mg every 8 hours yesterday, restart prednisone 30 mg today and DC hydrocortisone Scheduled to follow-up with [facility] rheumatology end of August. = Blood pressure acceptable. - currently on 20 mg prednisone daily.- will keep as maintenance dose - as stated on chronic steroids HEME: Chronic anemia Thrombocytopenia most likely secondary to DIC/sepsis Transfuse blood and blood products as needed Transfuse 1 unit PRBC with hemodialysis 08/06/2018 = Platelets 131. Improved. No signs of bleeding. Hemoglobin stable. ENDO: Hypothyroidism Continue Synthroid 112 mcg p.o. daily. Normal TSH. Insomnia Patient was not receiving as needed melatonin. Will make melatonin scheduled = 08/13. Patient still with poor sleep. Discussed sleep hygiene. Will add Ativan at night. =08/14. Sleep improved. Continue to monitor. Labile mood. pleasant and cooperative on exam per previous notes Patient refusing to be seen by psychiatry doctor. [place] sdr likely. patient is noted on/off disrupting new AICD as noted with pauses, labs are normal , lytes are normal PROPH: SCDs for DVT prophylaxis. Hold pharmacologic DVT prophylaxis at this time due to recent invasive procedure, thrombocytopenia If consistently stays above 90, place on heparin subcu Protonix 40 mg daily for stress ulcer prophylaxis. ACCESS: New right IJ central line, right radial arterial line 08/03/18- DCd right femoral Vas-Cath placed 08/03/18-removed 08/09. Discharge Planning: Continues treatment inpatient with IV antibiotics for endocarditis. We will need clearance from infectious disease, nephrology. PT following. Midline placement 08/17/18. Removed plan for PICC line Not a candidate for DC home with IV abx as patient is not reliable and is disrupting IV lines, AICD PM interrogation 08/25, as noted abnormal pacing
[2018-08-28] MEDS: amLODIPine 5 MG Tablet PO SCH (09:39)
[2018-08-28] MEDS: predniSONE 20 MG Tablet PO SCH (09:40)
[2018-08-28] MEDS: Sodium Bicarbonate 650 MG Tablet PO SCH ×3 (09:40→18:46)
[2018-08-28] MEDS: Lisinopril 5 MG Tablet PO SCH (09:40)
[2018-08-28] MEDS: Heparin Central Flush 100 UNIT/ML 5 ML Vial IV.FLUSH SCH (09:51)
[2018-08-28] MEDS: Spironolactone 25 MG Tablet PO SCH ×2 (09:51→18:46)
[2018-08-28] MEDS: Vancomycin Inj 1,500 MG in Sodium Chlor 0.9% Inj 500 ML IV.SIG SCH (13:20)
[2018-08-28] MEDS: LORazepam 1 MG Tablet PO SCH (21:38)
[2018-08-28] MEDS: Melatonin 5 MG Tablet PO SCH (21:38)
[2018-08-29] MEDS: Aztreonam Inj 2 GM in Sodium Chloride 0.9% Inj 100 ML IV.SIG SCH ×4 (03:14→21:01)
[2018-08-29] MEDS: Morphine Sulfate 15 MG IR Tablet PO PRN ×3 (03:23→20:50)
[2018-08-29] MEDS: Levothyroxine 112 MCG Tablet PO SCH (05:14)
[2018-08-29] MEDS: Morphine Sulfate Inj 2 MG/ML Vial IV.PUSH PRN ×2 (06:25→10:38)
[2018-08-29] MEDS: Sodium Bicarbonate 650 MG Tablet PO SCH ×3 (09:21→20:00)
[2018-08-29] MEDS: predniSONE 20 MG Tablet PO SCH (09:21)
[2018-08-29] MEDS: Heparin Central Flush 100 UNIT/ML 5 ML Vial IV.FLUSH SCH (09:22)
[2018-08-29] MEDS: Lisinopril 5 MG Tablet PO SCH (09:22)
[2018-08-29] MEDS: amLODIPine 5 MG Tablet PO SCH (09:23)
[2018-08-29] MEDS: Spironolactone 25 MG Tablet PO SCH ×2 (09:24→20:00)
--- NOTE | 2018-08-29 11:15 | P.PNNP ---
Subjective Interval history: Sleeping. Denies any shortness of breath or chest pain. Nausea reported. <Cher Freeman - Last Filed: 08/29/18 14:48> Physical Exam Vital signs: Vital Signs 08/28/18 12:00 08/28/18 16:00 08/28/18 18:46 Temperature 98.7 F 98.4 F Pulse Rate 69 67 Respiratory Rate 19 19 20 Blood Pressure 121/70 100/62 Pulse Oximetry 99 100 08/28/18 20:00 08/28/18 20:50 08/29/18 00:00 Temperature 98.5 F 98.5 F Pulse Rate 60 72 54 L Respiratory Rate 16 17 Blood Pressure 119/57 L 104/54 L Pulse Oximetry 98 96 08/29/18 04:00 08/29/18 08:00 Temperature 97.6 F 97.2 F L Pulse Rate 53 L 66 Respiratory Rate 16 14 Blood Pressure 116/60 140/68 Pulse Oximetry 98 100 Intake & Output 08/28/18 08/29/18 08/29/18 18:59 06:59 18:59 Intake Total 680 / 680 715 / 715 100 / 100 Balance 680 / 680 715 / 715 100 / 100 Weight 79.8 kg Intake: IV 200 / 200 715 / 715 100 / 100 Azactam Inj 2 GM In NS Inj 100 200 / 200 200 / 200 100 / 100 ML @ 100 mls/hr IV.SIG Q6H SHUKRI Rx#:[id number] Vancomycin Inj 1,500 MG In NS 515 / 515 Inj 500 ML @ 250 mls/hr IV.SIG Q24H SHUKRI Rx#:[id number] Oral 480 / 480 Other: # Voids 3 5 Date of Last Bowel Movement 08/27/18 Narrative: GENERAL: Alert and oriented x3. NAD SKIN: Warm and dry. Steri strips left chest wall NECK: Supple, trachea midline. No JVD. CARDIOVASCULAR: Bradycardia RESPIRATORY: Breath sounds equal bilaterally. No accessory muscle use. GASTROINTESTINAL: Abdomen soft, Bowel sounds are normal, non tender today MUSCULOSKELETAL: No cyanosis, or edema. moves all extremities spontaneously BACK: Nontender without obvious deformity. No CVA tenderness. - Urinary Catheter Management Indwelling Urethral Catheter Cath placed during this visit: yes, but has since been removed by the nurse Reason for continuing: Decision to DC catheter Removal date: 08/07/18 Removal time: 18:00 <Cher Freeman - Last Filed: 08/29/18 14:48> Vital signs: Vital Signs 08/30/18 00:00 08/30/18 04:00 08/30/18 08:00 Temperature 98.4 F 98.2 F 97.9 F Pulse Rate 59 L 68 53 L Respiratory Rate 18 16 18 Blood Pressure 115/56 L 115/69 126/69 Pulse Oximetry 97 98 98 08/30/18 09:08 08/30/18 12:00 08/30/18 16:00 Temperature 98.8 F 98.5 F Pulse Rate 51 L 58 L Respiratory Rate 16 18 16 Blood Pressure 129/65 125/70 Pulse Oximetry 98 97 Intake & Output 08/30/18 08/30/18 08/31/18 06:59 18:59 06:59 Intake Total 800 / 800 717.5 / 717.5 Balance 800 / 800 717.5 / 717.5 Weight 80.8 kg Intake: IV 200 / 200 717.5 / 717.5 Azactam Inj 2 GM In NS Inj 100 200 / 200 200 / 200 ML @ 100 mls/hr IV.SIG Q6H SHUKRI Rx#:[id number] Vancomycin Inj 1,750 MG In NS 517.5 / 517.5 Inj 500 ML @ 250 mls/hr IV.SIG Q24H SHUKRI Rx#:[id number] Oral 600 / 600 Other: # Voids 6 Date of Last Bowel Movement 08/27/18 # Bowel Movements 0 - Urinary Catheter Management Indwelling Urethral Catheter Cath placed during this visit: no <Slim Arrieta - Last Filed: 08/30/18 21:29> Assessment and Plan - Assessment (1) Acute kidney injury superimposed on CKD Code(s): N17.9 - Acute kidney failure, unspecified; N18.9 - Chronic kidney disease, unspecified Status: Acute Plan: Acute kidney injury with history of chronic kidney disease SHABANA most likely due to hypotension and ATN, unlikely lupus Nephritis Initially started on CCRT 08/03, Then had hemodialysis on and with last hemodialysis on 08/06 Creatinine remains stable at 0.93, with good urinary output Continue antibiotics per ID recommendations Avoid nephrotoxins and dye studies Follow BMP periodically. (2) SLE (systemic lupus erythematosus) Code(s): M32.9 - Systemic lupus erythematosus, unspecified Status: Acute Plan: Checked for Lupus activity. DNA DS normal On prednisone (3) Hypertension Code(s): I10 - Essential (primary) hypertension Status: Acute Plan: Well controlled,will monitor (4) Endocarditis of tricuspid valve Code(s): I36.8 - Other nonrheumatic tricuspid valve disorders Status: Acute Plan: Antibiotics per ID <Cher Freeman - Last Filed: 08/29/18 14:48> - Assessment (1) Acute kidney injury superimposed on CKD Code(s): N17.9 - Acute kidney failure, unspecified; N18.9 - Chronic kidney disease, unspecified Status: Acute Plan: Patient seen and examined, agree with above. Patient with SHABANA and RTA. Creatinine is stable, K is off and on low. Continue Aldactone and NaHco3. Will follow off and on. (2) SLE (systemic lupus erythematosus) Code(s): M32.9 - Systemic lupus erythematosus, unspecified Status: Acute (3) Hypertension Code(s): I10 - Essential (primary) hypertension Status: Acute (4) Endocarditis of tricuspid valve Code(s): I36.8 - Other nonrheumatic tricuspid valve disorders Status: Acute <Slim Arrieta - Last Filed: 08/30/18 21:29>
[2018-08-29] MEDS: Senna/Docusate Sodium 8.6/50 MG Tablet PO SCH ×2 (12:32→21:01)
[2018-08-29] MEDS ORDERED: Pharmacy Ordered Lab Info OTHER ONE (12:45)
[2018-08-29] MEDS: Vancomycin Inj 1,500 MG in Sodium Chlor 0.9% Inj 500 ML IV.SIG SCH (12:49)
[2018-08-29] MEDS ORDERED: Lidocaine 2% Inj 50 ML Vial ONE (16:21)
--- NOTE | 2018-08-29 16:24 | P.PN ---
Subjective Interval history: Nursing denies any deterioration since last night. Patient is very nervous. Keeps reiterating the same sentiment about checking her lab work. She says that it is very overwhelming given the possibility of her undergoing another pacemaker adjustment. Physical Exam Vital signs: Vital Signs 08/28/18 18:46 08/28/18 20:00 08/28/18 20:50 Temperature 98.5 F Pulse Rate 60 72 Respiratory Rate 20 16 Blood Pressure 119/57 L Pulse Oximetry 98 08/29/18 00:00 08/29/18 04:00 08/29/18 08:00 Temperature 98.5 F 97.6 F 97.2 F L Pulse Rate 54 L 53 L 93 H Respiratory Rate 17 16 14 Blood Pressure 104/54 L 116/60 140/68 Pulse Oximetry 96 98 100 08/29/18 12:00 Temperature 98.3 F Pulse Rate 53 L Respiratory Rate 16 Blood Pressure 153/71 H Pulse Oximetry 100 Intake & Output 08/28/18 08/29/18 08/29/18 18:59 06:59 18:59 Intake Total 680 / 680 715 / 715 100 / 100 Balance 680 / 680 715 / 715 100 / 100 Weight 79.8 kg Intake: IV 200 / 200 715 / 715 100 / 100 Azactam Inj 2 GM In NS Inj 100 200 / 200 200 / 200 100 / 100 ML @ 100 mls/hr IV.SIG Q6H SHUKRI Rx#:[id number] Vancomycin Inj 1,500 MG In NS 515 / 515 Inj 500 ML @ 250 mls/hr IV.SIG Q24H SHUKRI Rx#:[id number] Oral 480 / 480 Other: # Voids 3 5 Date of Last Bowel Movement 08/27/18 Narrative: Nervous but awake and alert and oriented Unlabored breathing clear lungs bilaterally Heart sounds regular rate and rhythm - Urinary Catheter Management Indwelling Urethral Catheter Cath placed during this visit: yes, but has since been removed by the nurse Reason for continuing: Decision to DC catheter Removal date: 08/07/18 Removal time: 18:00 Results - Labs CBC & Chem 7: 08/25/18 04:05 08/29/18 12:40 Laboratory Results - last 24 hr 08/29/18 08/29/18 12:40 12:40 Creatinine 0.93 Estimated GFR 66 L Vancomycin Trough 13.1 H Assessment and Plan - Plan 42 years old female . Was admitted for acute hypoxic respiratory failure , intubated with encephalopathy and severe cardiogenic shock. 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 Extubated 2017. Patient had her p.m. wires dislodged. NEURO: Chronic pain Possible seizures Continue morphine 15 mg p.o. every 8 hours and as needed Valium 10 mg p.o. every 8 hours- decrease to 5 mg po q8 prn EEG only if recurrent seizures, Seizure-like activity noticed on 08/03/2018 most likely secondary to decreased perfusion RESP: Acute hypoxemic respiratory failure-improved Extubated 08/05/2018, tolerating well, DuoNeb q6 and PRN Broad spectrum ABX as below S/P Intubated 08/03/2018 for probable seizure, altered mental status and severe cardiogenic shock PH at the time of intubation was 6.9, lactic acid was 15 Acidosis has resolved continue to wean FiO2 as tolerated Continue EzPAP, IS Severe cardiogenic shock-resolved AICD malfunction/probable dislodged pacemaker lead, status post lead extraction and placement of new leads Severe lactic acidosis-resolved 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 2D echo shows tricuspid valve endocarditis, ID following-antibiotics as below CVVH started 08/03 due to severe acidosis, now transition to HD Prior ICD pocket infection in December 2017 and February 2018. Recently replaced by Dr. Cervantes. Per device rep she did not follow-up for S/ Holding spironolactone 25 mg p.o. daily in view of renal failure. Essential hypertension. - amlodipine PM wires dislodged- 08/25 - PM interrogated -I spoke with TJ - [employer] rep - wires are all dislodged- occasionally capturing Cardiology consulted- Dr. Edinson Cervantes was consulted- please see his notes 08/27 08/27- d/w Dr Morales - consult Dr. 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 She has undergone device removal on 2 prior occasions. Most recently was removed in February 2018 with wound VAC placement. Device replaced 06/27/18. She reported fever 102.7, however she is afebrile here. Continue vancomycin, aztreonam per ID 2D echo showed tricuspid valve endocarditis while bld cx's are neg Yeast vaginitis- improved - but still some - give diflucan 200 mg po x 1 dose today 10.21 - give x 1 NMonistal vaginal supp tonite x 1 Crohn's disease Renal diet. Protonix PO States she is scheduled to follow-up with [facility] gastroenterology in the end of August Currently on stress dose steroids, changed to home dose of prednisone 30 mg daily = We will decrease dose of prednisone to 20 mg daily. T = Continue prednisone 20 mg daily. Appears to be more relaxed at this dose. 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 Hasn't followed up with gynecology in over a year. 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 Urine output slowly improving Nephrology Dr. Arrieta. Currently patient has a right femoral Vas-Cath. Patient states she has not had renal biopsy. She has been followed by nephrology at [facility]. = Nephrology following. Appreciate assistance. Renal function improving slowly. =08/15 with anion gap metabolic acidosis, likely secondary to resolving acute kidney injury. As per nephrology. Hypokalemia -replace Systemic lupus erythematosus On chronic steroids -Tapered down from stress dose steroids to chronic baseline dosing Chronic anemia Thrombocytopenia most likely secondary to DIC/sepsis Transfuse blood and blood products as needed Transfuse 1 unit PRBC with hemodialysis 08/06/2018 = Platelets 131. Improved. No signs of bleeding. Hemoglobin stable. Hypothyroidism Continue Synthroid Insomnia Patient was not receiving as needed melatonin. Will make melatonin scheduled = 08/13. Patient still with poor sleep. Discussed sleep hygiene. Will add Ativan at night. =08/14. Sleep improved. Continue to monitor. Labile mood. pleasant and cooperative on exam per previous notes Patient refusing to be seen by psychiatry doctor. [place] sdr likely. patient is noted on/off disrupting new AICD as noted with pauses, labs are normal , lytes are normal PROPH: SCDs for DVT prophylaxis. Hold pharmacologic DVT prophylaxis at this time due to recent invasive procedure, thrombocytopenia If consistently stays above 90, place on heparin subcu Protonix 40 mg daily for stress ulcer prophylaxis. right IJ central line, right radial arterial line 08/03/18- DCd 08/05/18 right femoral Vas-Cath placed 08/03/18-removed 08/09. Discharge Planning: Continues treatment inpatient with IV antibiotics for endocarditis. We will need clearance from infectious disease, nephrology. PT following. Midline placement 08/17/18. This was removed and now has a PICC line. Anticipate antibiotics until 09/17. Not a candidate for DC home with IV abx as patient is not reliable and is disrupting IV lines, AICD PM interrogation 08/25, as noted abnormal pacing
[2018-08-29] MEDS ORDERED: Glycopyrrolate Inj 1 MG/5 ML Syringe IV.PUSH ONE (16:30)
[2018-08-29] MEDS ORDERED: Succinylcholine Inj 100 MG/5 ML Syringe IV.PUSH ONE (16:30)
[2018-08-29] MEDS ORDERED: Levofloxacin 500 mg Premix Inj 500 MG/100 ML PIGGYBACK IV.SIG ONE (16:30)
[2018-08-29] MEDS ORDERED: Neostigmine Inj 5 MG/5 ML Syringe IV.PUSH ONE (16:30)
[2018-08-29] MEDS ORDERED: fentaNYL Citrate Inj 100 MCG/2 ML Ampul ONE ×2 (17:17→18:31)
--- NOTE | 2018-08-29 18:30 | CATHPROC ---
Patient Name: Brisa Hernandez Study #: [id number] Initial MD: Tamara Cervantes Date of : 1975 Study Date: 08/29/2018 Cardiac Catheterization Report 08/29/2018 6:31:03 PM Financial #: [id number] 1 of 10 Patient Name: Brisa Hernandez Study #: [id number] Initial MD: Tamara Cervantes Date of : 1975 Study Date: 08/29/2018 Entire Case Report Patient Information Patient Name Brisa Hernandez Date of 1975 Age 42 years Financial # [id number] Gender F AlternateID Lab Number 6 Room Number 1428 Height (in) 69.0 Height (cm) 175.3 BSA 1.96 Weight (lbs) 175.6 Weight (kg) 79.8 Patient Address/Phone Number Home Address [facility] Home Phone Number [address] [place] [address] Study Information Study Number Admission Scheduled Start Study Start [id number] Aug 03 2018 3:38AM 08/29/2018 Aug 29 2018 4:03PM [facility] Cardiac Catheterization Admit Source Facility Department Other [facility] - Electrician Elevator Maintenance Physician and Clinical Staff Initial Tamara Robin [employer] Assistant Teacher Balbir Hernández,RT(R) Other Anesthesia, HOSPICE CARE TRANSITIONS COORDINATOR Other Mandie Katz RN Recorder Lissette Alaniz RN Scrub Mercedes SmileyRT(R) TECH2 Procedures Performed Procedure Lead Revision 08/29/2018 6:31:03 PM Financial #: [id number] 2 of 10 Patient Name: Brisa Hernandez Study #: [id number] Initial MD: Tamara Cervantes Date of : 1975 Study Date: 08/29/2018 Equipment Time Post Anesthesia Care Unit Nurse Description Size Mfg Part Number Used/Scraped DERMABOND, ADHESIVE SKIN [id number] 17:08 CORDIS/PACER * Used GLUE MINI *[id number] 17:08 Progression Labs BLANKET,WARM AIR CCL * Used *[id number] TP-1103 17:08 MEDLINE INDUSTRIES SUTURE, STRIP PLUS 1/2" * Used *[id number] 17:08 MEDLINE PACER HUGHES, LIMB * 2530 *[id number] Used [id number] 17:08 MEDLINE PACER PACK, PACER CUSTOM * Used *[id number] 16:42 Needle Sponge Count 2 22 Used 16:42 Needle Sponge Count 2 2 Used 16:42 Needle Sponge Count 20 200 Used SUTURE, 0 ETHIBOND [CT1] (CX21D), 8pk SUTURE, 2-0 VICRYL [CT1] ([id number]) SUTURE, 2-0 VICRYL [CT1] (VTZ223Y) [facility] PAD, ELECTROSURGICAL 17:08 * [id number] *[id number] Used SURGICAL GROUNDING ORANGE [id number] 17:08 123people ABRAHAM. / * Used *[id number] Insurance Information Insurance Payor State Specific Plan Third Green Party Third Green Party Number [facility] [employer] MDH[facility] 08/29/2018 6:31:03 PM Financial #: [id number] Patient Name: Brisa Hernandez Study #: [id number] Initial MD: Tamara Cervantes Date of : 1975 Study Date: 08/29/2018 History: Allergies Allergy Reaction *MDRO Multi-Drug Resistant Cleared - 04/21/16 Organism Compazine DYSTONIC REACTION Keflex RASH,SWELLING Neurontin SEIZURES Penicillin RASH,SWELLING Phenergan DYSTONIC REACTION Reglan DYSTONIC REACTION Seafood SWELLING IN THROAT, SOB Toradol RASH Fish Containing Products SWELLING IN THROAT, SOB prochlorperazine DYSTONIC REACTION cephalexin RASH,SWELLING gabapentin SEIZURES promethazine DYSTONIC REACTION ketorolac RASH penicillin G RASH,SWELLING Labs Hgb (g/dl) Hct (%) WBC (l/cumm) Platelets (thousands) 11.60-17.00 35.00-51.00 4.00-11.00 150.00-450.00 9.6 29.3 8.4 209 Glucose (mg/dl) BUN (mg/dl) Creatinine (mg/dl) BUN:Creatinine (1:x) 74.00-106.00 7.00-18.00 0.50-1.30 10.00-20.00 86 19 0.9 21.1 Na (meq/l) K (meq/l) 136.00-145.00 3.50-5.10 144 3.7 INR (PTT:PT) 0.90-1.10 1.2 Medication 08/29/2018 6:31:03 PM Financial #: [id number] 4 of 10 Patient Name: Brisa Hernandez Study #: [id number] Initial MD: Tamara Cervantes Date of : 1975 Study Date: 08/29/20 18 Medication Total Dose (Bolus/Oral) Medication Total Dosage/Unit 2% XYLOCAINE 50 mL Medications (Bolus/Oral) Medication Time Given Dosage/Unit Administered By Reason 2% XYLOCAINE 08/29/2018 5:18:29 PM 50 mL Tamara Cervantes 50 mL 2% XYLOCAINE given in lab by Tamara Cervantes via Subcutaneous. Ordered by Tamara Cervantes. Administ ered to left upper chest. Medication (Drip) Medication Time Given Dosage/Unit Concentration/Unit Diluent (ml) Solution IV Solutions 08/29/2018 4:34:07 PM 0 mL (IV) NaCl .9 IV Solutions given in lab by Lissette Alaniz RN in Left Arm via Peripheral IV. Pump/Drip Flow = 30 ml /hr using NaCl .9. Ordered by Tamara Cervantes. Reason: As per physicians verbal order. LEVAQUIN 08/29/2018 4:56:31 PM 100 mL/hr 500 100 NaCl .9 100 mL/hr LEVAQUIN given in lab by Anesthesia, HOSPICE CARE TRANSITIONS COORDINATOR via Peripheral IV. Pump/Drip Flow = 0 ml/hr using NaCl .9 with a concentration of 500 in 100 ml. Ordered by Tamara Cervantes. Reason: As per physicians verbal order. VANCOMYCIN DRIP 08/29/2018 4:57:18 PM 1 g 1 g VANCOMYCIN DRIP given in lab by Osorio HOSPICE CARE TRANSITIONS COORDINATOR via Peripheral IV. Ordered by Tamara Cervantes. Marcie son: As per physicians verbal order. 08/29/2018 6:31:03 PM Financial #: [id number] 5 of 10 Patient Name: Brisa Hernandez Study #: [id number] Initial MD: Tamara Cervantes Date of : 1975 Study Date: 08/29/2018 Initial Case Assessment Cardiovascular HR Rhythm NIBP 89 SR 138/78 Edema Present Skin color Skin None Normal Warm Dry Circulatory - Right Pulses Dorsalis Pedis 1 Scale (0,1,2,3,4,d) Circulatory - Left Pulses Dorsalis Pedis 1 Scale (0,1,2,3,4,d) Circulatory - Lower Extremities Color Lower Right Color Lower Left Normal Normal Neurological State Oriented to time-place- Alert Moves all extremities person Respiration - General Respiration Rate SpO2 (%) (B/min) 20 96 08/29/2018 6:31:03 PM Financial #: [id number] Patient Name: Brisa Hernandez Study #: [id number] Initial MD: Tamara Cervantes Date of : 1975 Study Date: 08/29/2018 Final Case Assessment Cardiovascular HR Rhythm NIBP 81 SR 101/73 Edema Present Skin color Skin None Normal Warm Dry Circulatory - Right Pulses Dorsalis Pedis 1 Scale (0,1,2,3,4,d) Circulatory - Left Pulses Dorsalis Pedis 1 Scale (0,1,2,3,4,d) Circulatory - Lower Extremities Color Lower Right Color Lower Left Normal Normal Neurological State Drowsy Moves all extremities Respiration - General Respiration Rate SpO2 (%) O2 (lpm) (B/min) 20 100 4 Chronological Log Time Study Chronological Log 16:15:32 Patient arrived via Bed. 16:15:32 Patient Name, D.O.B, / Armband Verified By R.N. 16:15:33 Consent signed by the physician and the patient and verified by the Electrician Elevator Maintenance staff. 16:15:34 Pre-op and post- op instructions given; patient acknowledges understanding of instructions. 16:15:34 Verbal Stimulation=2 Physical Stimulation=2 Airway=2 Respiration=2 TOTAL=8. (0=absent, 1=li mited, 2=present) 16:15:36 Patient has been NPO for More than 6Hrs. 16:19:13 Skin Breakdown- 16:19:14 Patient Warmer Placed on the Table. 16:19:15 Disposable Defibrillator Pads Placed On Patient. 08/29/2018 6:31:03 PM Financial #: [id number] 7 of 10 Patient Name: Brisa Hernandez Study #: [id number] Initial MD: Tamara Cervantes Date of : 1975 Study Date: 08/29/2018 16:19:16 Megan Prominences Protected 16:19:22 History and physical on the chart. 16:25:22 Anesthesia at bedside. Assumes care of patient. Assessment: Initial Case, HR=89 BPM, Rhythm=SR, OKCU=652/78 mmhg, Edema=None, Color=Normal, Ski n = Warm, Dry Right Pulses: Kristian Ped=1 Left Pulses: Kristian Ped=1 16:26:16 Lower Right Extremities: Color=Normal Lower Left Extremities: Color=Normal Neurological: State=Alert, Ox3, [place] Respiration: Resp=20 B/min, SpO2=96 % 16:31:33 A PICC line IV was noted in the Brachial vein left. Grade = 0 16:31:47 Reference ECG taken IV Solutions given in lab by Lissette Alaniz RN in Left Arm via Peripheral IV. Pump/Drip Flow = 30 ml/hr using NaCl 16:34:07 .9. Ordered by Tamara Cervantes. Reason: As per physicians verbal order. 16:35:00 Table restraints applied according to hospital policy 16:35:06 2% CHLORHEXIDINE GLUCONATE WASH AND NASAL SWIPE DONE PRIOR TO PROCEDURE. 16:35:10 Bovie ground pad applied to: right thigh First Sponge And Instrument Count Done by Balbir Hernández, RT(R). 16:35:13 Hypo's: 2, Sponges: 20, Bovie/scratch: 2 Sutures: 10, Blades: 1, Instruments: 26, Syveck Patches: 0 verified by 16:41:21 Anesthesiologist present for LMA insertion 16:49:58 Left Upper Chest Prepped Times Two. 100 mL/hr LEVAQUIN given in lab by Anesthesia, HOSPICE CARE TRANSITIONS COORDINATOR via Peripheral IV. Pump/Drip Flow = 0 ml/hr using NaCl .9 with 16:56:31 a concentration of 500 in 100 ml. Ordered by Tamara Cervantes. Reason: As per physicians verbal or anthony. 1 g VANCOMYCIN DRIP given in lab by Osorio, HOSPICE CARE TRANSITIONS COORDINATOR via Peripheral IV. Ordered by Andrew Cervantes Reason: As per 16:57:18 physicians verbal order. 17:00:01 A sterile drape was applied. 17:01:18 MD paged 17:03:36 Floor RN called to report pt had VANCOMYCIN at 1330 today. Informed anesthesia and current INFUSION STOPPED. 17:10:21 MD arrived. 17:11:57 Consent signed by the physician and the patient and verified by the Electrician Elevator Maintenance staff. Time Out. Correct patient, procedure, procedure equipment, site and side verified with physicia n present. Time 17:16:07 concurred by MD, individual staff and HOSPICE CARE TRANSITIONS COORDINATOR. Time Out #2 - Consents verified, patient in correct position, all results are labled and displa yed, safety precautions 17:17:14 taken, antibiotics administered. Time out concurred by MD, individual staff and HOSPICE CARE TRANSITIONS COORDINATOR in procedu re Time Out #2 - Consents verified, patient in correct position, all results are labled and displa yed, safety precautions 17:17:44 taken, antibiotics administered. Time out concurred by MD, individual staff and HOSPICE CARE TRANSITIONS COORDINATOR in procedu re 17:18:23 Case Start 50 mL 2% XYLOCAINE given in lab by Tamara Cervantes via Subcutaneous. Ordered by Tamara Cervantes. Ad ministered to left 17:18:29 upper chest. 17:18:51 Surgical Incision Made. 17:18:52 A pocket was reopened at the L Upper Chest. 17:22:32 A device was explanted. 08/29/2018 6:31:03 PM Financial #: [id number] 8 of 10 Patient Name: Brisa Hernandez Study #: [id number] Initial MD: Tamara Cervantes Date of : 1975 Study Date: 08/29/2018 17:24:05 A stylet was inserted via existing RA lead. 17:28:28 The RA Lead Was Revised. 17:29:08 Lead placement verified under fluoroscopy 17:29:42 The Atrial lead was sutured to the fascia. 17:33:03 The RV Lead Was Revised. defib lead 17:34:04 A stylet was inserted via existing RV lead. 17:34:16 Lead placement verified under fluoroscopy 17:35:50 The RV lead was sutured to the fascia. 17:36:15 Pocket flushed with antibiotic solution 17:37:20 Existing device reconnected and reinserted into the pocket. 17:38:47 Device testing per MD order by Raronironaldo KAYE 17:40:03 PACU called. Spoke to Taye. Second Sponge And Instrument Count Done by Balbir Hernández RT(R). 17:41:44 Hypo's: 2, Sponges: 20, Bovie/scratch: 2 Sutures: 10+1, Blades: 1, Instruments: ~INSTRU~, Syveck Patches: 0 verified by SH 17:43:41 The pocket is being closed. 17:43:57 Implant Procedure was performed. 17:44:09 A Pocket Revision . (Dual) 17:44:23 A Lead Revision . (Dual) Defib lead 17:44:41 A Lead Revision . (Dual) RA lead 17:57:37 The pocket was closed. Final Sponge And Instrument Count Done by Balbir Hernández RT(R). 17:57:59 Hypo's: 2, Sponges: 20, Bovie/scratch: 2 Sutures: 10, Blades: 1, Instruments: 26, Syveck Patches: 0 verified by 17:59:20 Steri-strips and a sterile dressing applied to site. 17:59:26 Case End (Physician broke scrub) 18:00:26 THE LMA was removed by anesthesia and supplemental oxygen was applied by [facility]. Assessment: Final Case, HR=81 BPM, Rhythm=SR, CHMS=126/73 mmhg, Edema=None, Color=Normal, Skin = Warm, Dry Right Pulses: Kristian Ped=1 Left Pulses: Kristian Ped=1 18:01:10 Lower Right Extremities: Color=Normal Lower Left Extremities: Color=Normal Neurological: State=Drowsy, [place] Respiration: Resp=20 B/min, OfK1=063 %, O2=4 lpm 18:02:21 No case complications noted. 18:02:22 Cine recording checked. 18:02:25 Bedside Report will be given. 18:05:20 Patient moved to stretcher 18:09:56 A sterile dressing change was performed by to the left arm PICC line. No sutures noted. 18:13:32 Defibrillator and ground pads removed. Skin intact. 18:18:49 A sling was placed on the affected arm and pt was educated again on restrictive ROM. 18:20:51 Patient transported in stable condition with HOSPICE CARE TRANSITIONS COORDINATOR and tech accompanying to PACU. 08/29/2018 6:31:03 PM Financial #: [id number] Patient Name: Brisa Hernandez Study #: [id number] Initial MD: Tamara Cervantes Date of : 1975 Study Date: 08/29/2018 End Study - Contrast Media Used In Study Contrast Total Opened (mL) Total Used (mL) Total Wasted (mL) Unspecified 0 0 0 End Study - Maximum Contrast Load Max Contrast Load (mL) 443.4 End Study - Radiation Exposure Fluoro Time (minutes) 1.3 End Study - Patient Disposition Complications Transferred To Interventional Outcome No Telemetry Bed successful 08/29/2018 6:31:03 PM Financial #: [id number]
[2018-08-29] MEDS ORDERED: *morphine SULFATE 10 MG/ML PERIprocedure ONLY ONE (18:39)
--- NOTE | 2018-08-29 18:54 | XR ---
EXAM DATE: 08/29/2018 12:00 AM EDT AGE/SEX: 42 years / Female INDICATIONS: Post defibrillator exchange. CLINICAL DATA: This is the patient's initial encounter. Patient reports that signs and symptoms have been present for 1 day and indicates a pain score of 8/10. MEDICAL/SURGICAL HISTORY: . Crohn's disease. Hypothyroidism. Brugada syndrome. Endometriosis. E sophagitis. Gastroparesis. Hypokalemia. Interstitial cystitis. Lupus. Renal disease. Appendectomy. Hy sterectomy. AICD. . COMPARISON: [facility] [place], CHEST 1V SINGLE AP, 08/25/2018. . FINDINGS: A single AP view of the chest demonstrates the lungs to be symmetrically aerated without evidence of mass, infiltrate or effusion. The cardiomediastinal contours are unremarkable. Osseous structures a re intact. Left subclavian bipolar pacer is radiographically intact. CONCLUSION: No acute cardiopulmonary process. Electronically signed by: Everton Higginbotham MD 08/29/2018 6:52 PM EDT
[2018-08-29] MEDS: LORazepam 1 MG Tablet PO SCH (20:49)
[2018-08-29] MEDS: Melatonin 5 MG Tablet PO SCH (21:01)
[2018-08-30] MEDS: Morphine Sulfate Inj 2 MG/ML Vial IV.PUSH PRN ×3 (01:49→17:15)
[2018-08-30] MEDS: Aztreonam Inj 2 GM in Sodium Chloride 0.9% Inj 100 ML IV.SIG SCH ×4 (04:48→21:40)
[2018-08-30] MEDS: Morphine Sulfate 15 MG IR Tablet PO PRN ×3 (04:48→21:39)
[2018-08-30] MEDS: Levothyroxine 112 MCG Tablet PO SCH (05:00)
--- NOTE | 2018-08-30 07:38 | MP ---
cc: Tamara Cervantes MD DATE OF OPERATION: 08/29/2018 PROCEDURE PERFORMED: Right atrial and right ventricular lead revision and defibrillator pocket revision. INDICATIONS FOR PROCEDURE: Mrs. Hernandez is a 42-year-old female with long QT syndrome, with previous defibrillator implanted. This is a generator implantation and lead revision. The patient apparently played with the device. Subsequently, x-rays and interrogation of the device show both leads completely in the subclavicular area. After multiple discussion, decision for a lead reposition was taken. The risks, the nature and the benefits of the procedure are clearly stated to her. Risks include pneumothorax, cardiac perforation, stroke and even . She understood at that point and understands and agreed to proceed. PROCEDURE: After an informed consent was obtained, the patient was brought to the EP lab where she was prepped and draped in the usual sterile fashion. Conscious sedation was initiated and maintained throughout the procedure by the anesthesiologist. Once sedation was verified, the left infraclavicular area over the generator was anesthetized with 2% Xylocaine. With a #11 scalpel, a 3 cm incision was made over the generator. Dissection was taken down to fascial layers and Bovie cautery and blunt dissection. Once exposed generator was removed from the pocket, scar tissue was removed around the lead. Then, the leads were disconnected from the generator. A stylet was advanced to the right atrial lead. It was unscrewed and advanced. Subsequently, curved stylet was advanced in the lead. It was placed in the right atrium. After adequate pacing and sensing thresholds were obtained, the lead was secured in the pocket using #2 Ethibond suture. The stylet was advanced down to the right ventricular pacing/sensing lead and sensing and defibrillator lead. The lead was placed in the lower ventricular septum. After adequate pacing and sensing thresholds were obtained, the lead was secured in the pocket using #2 Ethibond suture. At that point, the pocket was copiously irrigated with antibiotic solution. Previous to that, the pocket was expanded. Then, the leads were connected to the generator and placed into the pocket. At this point, I did proceed with wound closure. . The deep fascial layer was approximated using #2-0 Vicryl suture in a continuous fashion. The subcutaneous layer was approximated with #2-0 Vicryl suture in a continuous fashion. The subcuticular layer was approximated using 2-0 Vicryl suture in a continuous fashion. Dermabond adhesive was applied to the wound, followed by a sterile pressure dressing. There was no complication. The patient tolerated the procedure. Blood loss minimal. IMPLANTED HARDWARE: For information about implanted hardware, please see previous dictation. THRESHOLDS: The right atrial pacing threshold in bipolar mode was less than 1 volt at 0.5 milliseconds, but the sense is at 4.9 millivolt. This a VDD device. The right ventricular pacing threshold in bipolar mode was 0.8 volt at 0.4 milliseconds, lead impedance 551 ohms, $ wave at 5.1 millivolt. SETTINGS: The device was set in VDD 60, upper rate limit 130 beats per minute. The defibrillator portion is set up the same way as before, 180-240 and VF over 240. CONCLUSION: Successful lead repositioning no acute distress pocket revision. RECOMMENDATION: The patient is going to be transferred to the recovery room. Further decision by the managing team. MD ALISSA Greenberg/duy/adriana , 05:53 PM , 06:06 PM
[2018-08-30] MEDS: Sodium Bicarbonate 650 MG Tablet PO SCH ×3 (08:56→17:15)
[2018-08-30] MEDS: Lisinopril 5 MG Tablet PO SCH (08:56)
[2018-08-30] MEDS: amLODIPine 5 MG Tablet PO SCH (08:56)
[2018-08-30] MEDS: Senna/Docusate Sodium 8.6/50 MG Tablet PO SCH ×2 (08:57→21:40)
[2018-08-30] MEDS: Heparin Central Flush 100 UNIT/ML 5 ML Vial IV.FLUSH SCH (08:57)
[2018-08-30] MEDS: predniSONE 20 MG Tablet PO SCH (08:57)
[2018-08-30] MEDS: Spironolactone 25 MG Tablet PO SCH ×2 (09:07→17:21)
[2018-08-30] MEDS: Vancomycin Inj 1,750 MG in Sodium Chlor 0.9% Inj 500 ML IV.SIG SCH (12:01)
--- NOTE | 2018-08-30 14:41 | ECG ---
Date Performed: 08/29/2018 Time Performed: 18:39:15 PTAGE: 42 years EKG: Sinus rhythm NORMAL ECG PREVIOUS TRACING : 08/25/2018 12.50 Since the previous tracing, no significant change noted DOCTOR: Sonido Michelle Interpretating Date/Time 08/30/2018 14:41:26
--- NOTE | 2018-08-30 15:11 | P.PN ---
Subjective Interval history: Nursing denies any deterioration since last night. Patient says she is a little nauseated. Physical Exam Vital signs: Vital Signs 08/29/18 15:45 08/29/18 18:24 08/29/18 18:30 Temperature 98.6 F 98.2 F Pulse Rate 63 69 76 Respiratory Rate 16 20 10 L Blood Pressure 129/58 L 107/64 96/55 L Pulse Oximetry 98 98 98 08/29/18 18:41 08/29/18 18:45 08/29/18 18:50 Temperature 98.2 F Pulse Rate 69 Respiratory Rate 12 20 Blood Pressure 107/55 L Pulse Oximetry 98 98 08/29/18 20:00 08/29/18 20:03 08/29/18 20:15 Temperature 98.6 F Pulse Rate 66 60 Respiratory Rate 16 Blood Pressure 116/55 L Pulse Oximetry 98 97 08/30/18 00:00 08/30/18 04:00 08/30/18 08:00 Temperature 98.4 F 98.2 F 97.9 F Pulse Rate 59 L 68 53 L Respiratory Rate 18 16 18 Blood Pressure 115/56 L 115/69 126/69 Pulse Oximetry 97 98 98 08/30/18 09:08 08/30/18 12:00 Temperature 98.8 F Pulse Rate 53 L Respiratory Rate 16 18 Blood Pressure 129/65 Pulse Oximetry 98 Intake & Output 08/29/18 08/30/18 08/30/18 18:59 06:59 18:59 Intake Total 1115 / 1115 800 / 800 617.5 / 617.5 Output Total 1000 / 1000 Balance 115 / 115 800 / 800 617.5 / 617.5 Weight 80.8 kg Intake: IV 715 / 715 200 / 200 617.5 / 617.5 Azactam Inj 2 GM In NS Inj 100 100 / 100 200 / 200 100 / 100 ML @ 100 mls/hr IV.SIG Q6H SHUKRI Rx#:[id number] Levaquin 500 mg Premix Inj 500 100 / 100 mg In 100 ml @ 0 mls/hr IV.SIG .STK-MED ONE Rx#:[id number] Vancomycin Inj 1,750 MG In NS 515 / 515 517.5 / 517.5 Inj 500 ML @ 250 mls/hr IV.SIG Q24H SHUKRI Rx#:[id number] Oral 600 / 600 Anesthesia Amount 400 / 400 Output: Urine 1000 / 1000 Other: # Voids 6 Date of Last Bowel Movement 08/27/18 # Bowel Movements 0 0 Narrative: Has postoperative dressing over her left chest Unlabored breathing Awake and alert Heart sounds are muffled in the context of this postoperative dressing - Urinary Catheter Management Indwelling Urethral Catheter Cath placed during this visit: yes, but has since been removed by the nurse Reason for continuing: Decision to DC catheter Removal date: 08/07/18 Removal time: 18:00 Results - Labs CBC & Chem 7: 08/25/18 04:05 08/31/18 06:00 - Imaging Impressions Chest X-Ray 08/29/18 00:00 CONCLUSION: No acute cardiopulmonary process. Assessment and Plan - Plan 42 years old female . Was admitted for acute hypoxic respiratory failure , intubated with encephalopathy and severe cardiogenic shock. 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 Extubated 2017. Underwent hemodialysis until 08/06. Patient had her p.m. wires dislodged. Now is s/p pacemaker revision (08/29). Chronic pain Possible seizures Continue morphine 15 mg p.o. every 8 hours and as needed Valium 10 mg p.o. every 8 hours- decrease to 5 mg po q8 prn EEG only if recurrent seizures, Seizure-like activity noticed on 08/03/2018 most likely secondary to decreased perfusion RESP: Acute hypoxemic respiratory failure-improved Extubated 08/05/2018, tolerating well, DuoNeb q6 and PRN Broad spectrum ABX as below S/P Intubated 08/03/2018 for probable seizure, altered mental status and severe cardiogenic shock PH at the time of intubation was 6.9, lactic acid was 15 Acidosis has resolved continue to wean FiO2 as tolerated Continue EzPAP, IS Severe cardiogenic shock-resolved AICD malfunction/probable dislodged pacemaker lead, status post lead extraction and placement of new leads Severe lactic acidosis-resolved 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 2D echo shows tricuspid valve endocarditis, ID following-antibiotics as below CVVH started 08/03 due to severe acidosis, now transition to HD Prior ICD pocket infection in December 2017 and February 2018. Recently replaced by Dr. Cervantes. Per device rep she did not follow-up for S/ Holding spironolactone 25 mg p.o. daily in view of renal failure. Essential hypertension. - amlodipine PM wires dislodged- 08/25 - PM interrogated -I spoke with TJ - [employer] rep - wires are all dislodged- occasionally capturing Cardiology consulted- Dr. Edinson Cervantes was consulted- please see his notes 08/27 08/27- d/w Dr Morales - consult Dr. 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 She has undergone device removal on 2 prior occasions. Most recently was removed in February 2018 with wound VAC placement. Device replaced 06/27/18. She reported fever 102.7, however she is afebrile here. Continue vancomycin, aztreonam per ID 2D echo showed tricuspid valve endocarditis while bld cx's are neg Yeast vaginitis- improved - but still some - give diflucan 200 mg po x 1 dose today 08.26 - give x 1 NMonistal vaginal supp tonite x 1 Crohn's disease Renal diet. 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 Hasn't followed up with gynecology in over a year. 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 Patient states she has not had renal biopsy. She has been followed by nephrology at [facility]. Hypokalemia -replace Systemic lupus erythematosus On chronic steroids -Tapered down from stress dose steroids to chronic baseline dosing Chronic anemia Thrombocytopenia most likely secondary to DIC/sepsis Transfuse blood and blood products as needed Transfuse 1 unit PRBC with hemodialysis 08/06/2018 = Platelets 131. Improved. No signs of bleeding. Hemoglobin stable. Hypothyroidism Continue Synthroid Insomnia melatonin Labile mood. per previous notes Patient refusing to be seen by psychiatry doctor. [place]'s dr lozada. patient is noted on/off disrupting new AICD as noted with pauses, labs are normal , lytes are normal PROPH: SCDs for DVT prophylaxis. Hold pharmacologic DVT prophylaxis at this time due to recent invasive procedure, thrombocytopenia If consistently stays above 90, place on heparin subcu Protonix 40 mg daily for stress ulcer prophylaxis. right IJ central line, right radial arterial line 08/03/18- DCd 08/05/18 right femoral Vas-Cath placed 08/03/18-removed 08/09. Discharge Planning: Continues treatment inpatient with IV antibiotics for endocarditis. We will need clearance from infectious disease, nephrology. PT following. Midline placement 08/17/18. This was removed and now has a PICC line. Anticipate antibiotics until 09/17. Not a candidate for DC home with IV abx as patient is not reliable and is disrupting IV lines, AICD PM interrogation 08/25, as noted abnormal pacing
[2018-08-30] MEDS: LORazepam 1 MG Tablet PO SCH (21:38)
[2018-08-30] MEDS: Melatonin 5 MG Tablet PO SCH (21:38)
[2018-08-31] MEDS: Morphine Sulfate Inj 2 MG/ML Vial IV.PUSH PRN ×2 (01:16→09:37)
[2018-08-31] MEDS: Aztreonam Inj 2 GM in Sodium Chloride 0.9% Inj 100 ML IV.SIG SCH ×4 (03:18→23:01)
[2018-08-31] MEDS: Levothyroxine 112 MCG Tablet PO SCH (06:21)
[2018-08-31] MEDS: Morphine Sulfate 15 MG IR Tablet PO PRN (06:22)
[2018-08-31] MEDS: amLODIPine 5 MG Tablet PO SCH (09:40)
[2018-08-31] MEDS: Lisinopril 5 MG Tablet PO SCH (09:40)
[2018-08-31] MEDS: Sodium Bicarbonate 650 MG Tablet PO SCH ×3 (09:41→18:25)
[2018-08-31] MEDS: Heparin Central Flush 100 UNIT/ML 5 ML Vial IV.FLUSH SCH (09:41)
[2018-08-31] MEDS: predniSONE 20 MG Tablet PO SCH (09:41)
[2018-08-31] MEDS: Spironolactone 25 MG Tablet PO SCH ×2 (09:58→20:34)
[2018-08-31] MEDS: Senna/Docusate Sodium 8.6/50 MG Tablet PO SCH ×2 (09:59→20:35)
--- NOTE | 2018-08-31 13:03 | P.PN ---
Subjective Interval history: Nursing denies any deterioration since last night. Patient reports having nausea but does admit she does not ask for medication and just deals with it. Mother is at the bedside and says the patient is not a drug seeker, is not a drug abuser, has lived with her mother for many years. Mother is asking if I can alternatively provide long-acting pain medication as opposed to slow acting pain medication. Physical Exam Vital signs: Vital Signs 08/30/18 16:00 08/30/18 20:00 08/30/18 23:30 Temperature 98.5 F 98.6 F 98.6 F Pulse Rate 58 L 53 L Respiratory Rate 16 18 18 Blood Pressure 125/70 115/55 L 127/59 L Pulse Oximetry 97 98 98 08/31/18 00:00 08/31/18 04:00 08/31/18 06:00 Temperature 97.6 F Pulse Rate 47 L 43 L 46 L Respiratory Rate 18 Blood Pressure 120/60 Pulse Oximetry 98 08/31/18 08:00 08/31/18 12:00 Temperature 98.7 F 99.3 F Pulse Rate 48 L 82 Respiratory Rate 18 18 Blood Pressure 119/60 120/56 L Pulse Oximetry 99 98 Intake & Output 08/30/18 08/31/18 08/31/18 18:59 06:59 18:59 Intake Total 717.5 / 717.5 200 / 200 Balance 717.5 / 717.5 200 / 200 Weight 81 kg Intake: IV 717.5 / 717.5 200 / 200 Azactam Inj 2 GM In NS Inj 100 200 / 200 200 / 200 ML @ 100 mls/hr IV.SIG Q6H SHUKRI Rx#:[id number] Vancomycin Inj 1,750 MG In NS 517.5 / 517.5 Inj 500 ML @ 250 mls/hr IV.SIG Q24H SHUKRI Rx#:[id number] Other: Date of Last Bowel Movement 08/27/18 08/30/18 Narrative: Has postoperative dressing over her left chest Unlabored breathing Awake and alert Heart sounds are heard today and they are clear, regular rate rhythm, no murmurs - Urinary Catheter Management Indwelling Urethral Catheter Cath placed during this visit: yes, but has since been removed by the nurse Reason for continuing: Decision to DC catheter Removal date: 08/07/18 Removal time: 18:00 Results - Labs CBC & Chem 7: 08/25/18 04:05 08/31/18 06:00 Laboratory Results - last 24 hr 08/31/18 06:00 Creatinine 1.00 Estimated GFR 61 L Assessment and Plan - Plan 42 years old female . Was admitted for acute hypoxic respiratory failure , intubated with encephalopathy and severe cardiogenic shock with lactic acidosis. 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 Extubated 08/05/2018. Underwent hemodialysis until 08/06 and needed transfusion of blood. Patient had her p.m. wires dislodged. Now is s/p pacemaker revision (08/29). Chronic pain Possible seizures Will switch from 15 mg of short-acting morphine daily hours to morphine slow release 30 mg at night and 50 mg during the day, and as needed Valium 10 mg p.o. 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 2D echo shows tricuspid valve endocarditis, ID following-antibiotics as below CVVH started 08/03 due to severe acidosis, now transition to HD Prior ICD pocket infection in December 2017 and February 2018. Recently replaced by Dr. Cervantes. Per device rep she did not follow-up for S/ Holding spironolactone 25 mg p.o. daily in view of renal failure. Essential hypertension. - amlodipine PM wires dislodged- 08/25 - PM interrogated -I spoke with TJ - [employer] rep - wires are all dislodged- occasionally capturing Cardiology consulted- Dr. Edinson Cervantes was consulted. Is now s/p pacemaker revision (08/29) Tricuspid valve endocarditis History of ICD pocket infection most recently with MRSA February 2018. She has undergone device removal on 2 prior occasions. Most recently was removed in February 2018 with wound VAC placement. Device replaced 06/27/18. She reported fever 102.7, however she is afebrile here. Continue vancomycin, aztreonam per ID 2D echo showed tricuspid valve endocarditis while bld cx's are neg Yeast vaginitis- - s/p diflucan dose; likely 2/2 immunosupression 2/2 steroids Crohn's disease Renal diet. Protonix PO follow-up with [facility] gastroenterology in the end of August home dose of prednisone 30 mg daily Menorrhagia, patient reports is a chronic problem. Hasn't followed up with gynecology in over a year. 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 Patient states she has not had renal biopsy. She has been followed by nephrology at [facility]. Hypokalemia -replace Systemic lupus erythematosus On chronic steroids -Tapered down from stress dose steroids to chronic baseline dosing Chronic anemia Thrombocytopenia most recent h/h and plts stable, no clinical signs of bleeding Hypothyroidism Continue Synthroid Insomnia melatonin Labile mood. per previous notes Patient refusing to be seen by psychiatry doctor. [place] dr likely. patient is noted on/off disrupting new AICD as noted with pauses, labs are normal , lytes are normal PROPH: SCDs for DVT prophylaxis. Hold pharmacologic DVT prophylaxis at this time due to recent invasive procedure, thrombocytopenia If consistently stays above 90, place on heparin subcu Protonix 40 mg daily for stress ulcer prophylaxis. Discharge Planning: Continues treatment inpatient with IV antibiotics for endocarditis. We will need clearance from infectious disease, nephrology. PT following. Midline placement 08/17/18. This was removed and now has a PICC line. Anticipate antibiotics until 09/17. Not a candidate for DC home with IV abx as patient is not reliable and is disrupting IV lines, AICD PM interrogation 08/25, as noted abnormal pacing
[2018-08-31] MEDS: Vancomycin Inj 1,750 MG in Sodium Chlor 0.9% Inj 500 ML IV.SIG SCH (13:57)
[2018-08-31] MEDS: Morphine Sulfate 15 MG SR Tablet PO SCH (20:33)
[2018-08-31] MEDS: Melatonin 5 MG Tablet PO SCH (20:33)
[2018-08-31] MEDS: LORazepam 1 MG Tablet PO SCH (20:34)
[2018-08-31] MEDS ORDERED: Morphine Sulfate 100 MG SR Tablet PO SCH (21:00)
[2018-08-31] MEDS: Heparin - SQ 10,000 UNITS/ML Vial SQ SCH (23:01)
[2018-09-01] MEDS: Morphine Sulfate Inj 2 MG/ML Vial IV.PUSH PRN (03:10)
[2018-09-01] MEDS: Aztreonam Inj 2 GM in Sodium Chloride 0.9% Inj 100 ML IV.SIG SCH ×4 (03:11→22:02)
[2018-09-01] MEDS: Levothyroxine 112 MCG Tablet PO SCH (05:32)
[2018-09-01] MEDS: Heparin - SQ 10,000 UNITS/ML Vial SQ SCH ×3 (05:32→21:42)
[2018-09-01] MEDS: Heparin Central Flush 100 UNIT/ML 5 ML Vial IV.FLUSH PRN (07:56)
[2018-09-01] MEDS: amLODIPine 5 MG Tablet PO SCH (08:00)
[2018-09-01] MEDS: Lisinopril 5 MG Tablet PO SCH (08:00)
[2018-09-01] MEDS: Morphine Sulfate 15 MG SR Tablet PO SCH ×2 (08:01→21:47)
[2018-09-01] MEDS: Sodium Bicarbonate 650 MG Tablet PO SCH ×3 (08:01→17:20)
[2018-09-01] MEDS: predniSONE 20 MG Tablet PO SCH (08:01)
[2018-09-01] MEDS: Heparin Central Flush 100 UNIT/ML 5 ML Vial IV.FLUSH SCH (08:02)
[2018-09-01] MEDS: Spironolactone 25 MG Tablet PO SCH ×2 (08:02→17:20)
[2018-09-01] MEDS: Senna/Docusate Sodium 8.6/50 MG Tablet PO SCH ×2 (08:02→21:54)
[2018-09-01] MEDS: Vancomycin Inj 1,750 MG in Sodium Chlor 0.9% Inj 500 ML IV.SIG SCH (13:36)
--- NOTE | 2018-09-01 14:16 | P.PN ---
Subjective Interval history: Nursing denies any deterioration since last night. Patient herself has no new complaints. Physical Exam Vital signs: Vital Signs 08/31/18 16:00 08/31/18 17:00 08/31/18 20:00 Temperature 98.5 F 98.7 F Pulse Rate 49 L 47 L 54 L Respiratory Rate 18 16 Blood Pressure 128/59 L 116/63 Pulse Oximetry 98 98 09/01/18 00:00 09/01/18 04:00 09/01/18 08:00 Temperature 98.1 F 98.1 F 98.1 F Pulse Rate 42 L 42 L 46 L Respiratory Rate 16 16 18 Blood Pressure 124/74 124/65 130/60 Pulse Oximetry 99 97 99 09/01/18 12:00 Temperature 99.1 F Pulse Rate 104 H Respiratory Rate 18 Blood Pressure 132/70 Pulse Oximetry 94 L Intake & Output 08/31/18 09/01/18 09/01/18 18:59 06:59 18:59 Intake Total 1197.5 / 1197.5 920 / 920 100 / 100 Output Total 500 / 500 Balance 1197.5 / 1197.5 420 / 420 100 / 100 Weight 79.6 kg Intake: IV 717.5 / 717.5 200 / 200 100 / 100 Azactam Inj 2 GM In NS Inj 100 200 / 200 200 / 200 100 / 100 ML @ 100 mls/hr IV.SIG Q6H SHUKRI Rx#:[id number] Vancomycin Inj 1,750 MG In NS 517.5 / 517.5 Inj 500 ML @ 250 mls/hr IV.SIG Q24H SHUKRI Rx#:[id number] Oral 480 / 480 720 / 720 Output: Urine 500 / 500 Other: # Voids 3 Date of Last Bowel Movement 08/30/18 08/31/18 Narrative: Heart sounds regular rate rhythm, no murmurs Clear lungs bilaterally, unlabored breathing Sitting up in bed - Urinary Catheter Management Indwelling Urethral Catheter Cath placed during this visit: yes, but has since been removed by the nurse Reason for continuing: Decision to DC catheter Removal date: 08/07/18 Removal time: 18:00 Results - Labs CBC & Chem 7: 08/25/18 04:05 08/31/18 06:00 Assessment and Plan - Plan 42 years old female . Was admitted for acute hypoxic respiratory failure , intubated with encephalopathy and severe cardiogenic shock with lactic acidosis. 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 Extubated 08/05/2018. Underwent hemodialysis until 08/06 and needed transfusion of blood. Patient had her p.m. wires dislodged. Now is s/p pacemaker revision (08/29). Chronic pain Possible seizures morphine slow release 30 mg at night and 15 mg during the day, and as needed Valium 10 mg p.o. 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 2D echo shows tricuspid valve endocarditis, ID following-antibiotics as below CVVH started 08/03 due to severe acidosis, now transition to HD Prior ICD pocket infection in December 2017 and February 2018. Recently replaced by Dr. Cervantes. Per device rep she did not follow-up for S/ Holding spironolactone 25 mg p.o. daily in view of renal failure. Essential hypertension. - amlodipine PM wires dislodged- 08/25 - PM interrogated -I spoke with TJ - [employer] rep - wires are all dislodged- occasionally capturing Cardiology consulted- Dr. Edinson Cervantes was consulted. Is now s/p pacemaker revision (08/29) Tricuspid valve endocarditis History of ICD pocket infection most recently with MRSA February 2018. She has undergone device removal on 2 prior occasions. Most recently was removed in February 2018 with wound VAC placement. Device replaced 06/27/18. She reported fever 102.7, however she is afebrile here. Continue vancomycin, aztreonam per ID 2D echo showed tricuspid valve endocarditis while bld cx's are neg Yeast vaginitis- - s/p diflucan dose; likely 2/2 immunosupression 2/2 steroids Crohn's disease Renal diet. Protonix PO follow-up with [facility] gastroenterology in the end of August home dose of prednisone 30 mg daily Menorrhagia, patient reports is a chronic problem. Hasn't followed up with gynecology in over a year. 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 Patient states she has not had renal biopsy. She has been followed by nephrology at [facility]. Hypokalemia -replace Systemic lupus erythematosus On chronic steroids -Tapered down from stress dose steroids to chronic baseline dosing Chronic anemia Thrombocytopenia most recent h/h and plts stable, no clinical signs of bleeding Hypothyroidism Continue Synthroid Insomnia melatonin Labile mood. per previous notes Patient refusing to be seen by psychiatry doctor. [place] dr likely. patient is noted on/off disrupting new AICD as noted with pauses, labs are normal , lytes are normal PROPH: SCDs for DVT prophylaxis. Hold pharmacologic DVT prophylaxis at this time due to recent invasive procedure, thrombocytopenia If consistently stays above 90, place on heparin subcu Protonix 40 mg daily for stress ulcer prophylaxis. Discharge Planning: Continues treatment inpatient with IV antibiotics for endocarditis. We will need clearance from infectious disease, nephrology. PT following. Midline placement 08/17/18. This was removed and now has a PICC line. Anticipate antibiotics until 09/17. Not a candidate for DC home with IV abx as patient is not reliable and is disrupting IV lines, AICD PM interrogation 08/25, as noted abnormal pacing
[2018-09-01] MEDS: LORazepam 1 MG Tablet PO SCH (21:51)
[2018-09-01] MEDS: Melatonin 5 MG Tablet PO SCH (22:01)
[2018-09-02] MEDS: Morphine Sulfate Inj 2 MG/ML Vial IV.PUSH PRN ×2 (03:04→11:55)
[2018-09-02] MEDS: Aztreonam Inj 2 GM in Sodium Chloride 0.9% Inj 100 ML IV.SIG SCH ×4 (04:00→21:35)
[2018-09-02] MEDS: Heparin - SQ 10,000 UNITS/ML Vial SQ SCH ×3 (07:06→21:27)
[2018-09-02] MEDS: Levothyroxine 112 MCG Tablet PO SCH (07:06)
[2018-09-02] MEDS: amLODIPine 5 MG Tablet PO SCH (08:14)
[2018-09-02] MEDS: predniSONE 20 MG Tablet PO SCH (08:14)
[2018-09-02] MEDS: Lisinopril 5 MG Tablet PO SCH (08:15)
[2018-09-02] MEDS: Morphine Sulfate 15 MG SR Tablet PO SCH ×2 (08:15→21:22)
[2018-09-02] MEDS: Spironolactone 25 MG Tablet PO SCH ×2 (08:16→17:35)
[2018-09-02 08:30] LABS: Carbon Dioxide 23.8 meq/L (21.0-32.0); Potassium 3.1 meq/L (3.5-5.1)
[2018-09-02] MEDS: Heparin Central Flush 100 UNIT/ML 5 ML Vial IV.FLUSH SCH (09:43)
[2018-09-02] MEDS: Senna/Docusate Sodium 8.6/50 MG Tablet PO SCH ×2 (09:44→21:26)
[2018-09-02] MEDS: Sodium Bicarbonate 650 MG Tablet PO SCH ×3 (09:44→17:34)
[2018-09-02] MEDS: Vancomycin Inj 1,750 MG in Sodium Chlor 0.9% Inj 500 ML IV.SIG SCH (11:55)
--- NOTE | 2018-09-02 12:13 | P.PNNP ---
Subjective Interval history: Resting, no acute events overnight. Creatinine at 1.11 and potassium level at 3.1 <Cher Freeman - Last Filed: 09/02/18 12:08> Physical Exam Vital signs: Vital Signs 09/01/18 16:00 09/01/18 20:00 09/01/18 22:20 Temperature 98.8 F 98.6 F Pulse Rate 97 H 56 L Respiratory Rate 18 18 16 Blood Pressure 139/61 169/74 H Pulse Oximetry 98 98 09/02/18 00:00 09/02/18 04:00 09/02/18 08:00 Temperature 98.1 F 98.1 F 97.5 F L Pulse Rate 58 L 63 73 Respiratory Rate 20 18 18 Blood Pressure 150/69 H 160/70 H 130/56 L Pulse Oximetry 98 100 99 Intake & Output 09/01/18 09/02/18 09/02/18 18:59 06:59 18:59 Intake Total 1197.5 / 1197.5 560 / 560 Balance 1197.5 / 1197.5 560 / 560 Intake: IV 717.5 / 717.5 200 / 200 Azactam Inj 2 GM In NS Inj 100 200 / 200 200 / 200 ML @ 100 mls/hr IV.SIG Q6H SHUKRI Rx#:[id number] Vancomycin Inj 1,750 MG In NS 517.5 / 517.5 Inj 500 ML @ 250 mls/hr IV.SIG Q24H SHUKRI Rx#:[id number] Oral 480 / 480 360 / 360 Other: # Voids 4 6 Date of Last Bowel Movement 09/01/18 Narrative: GENERAL: Alert and oriented x3. NAD SKIN: Warm and dry. Steri strips left chest wall NECK: Supple, trachea midline. No JVD. CARDIOVASCULAR: Bradycardia RESPIRATORY: Breath sounds equal bilaterally. No accessory muscle use. GASTROINTESTINAL: Abdomen soft, Bowel sounds are normal, non tender today MUSCULOSKELETAL: No cyanosis, or edema. moves all extremities spontaneously BACK: Nontender without obvious deformity. No CVA tenderness. - Urinary Catheter Management Indwelling Urethral Catheter Cath placed during this visit: yes, but has since been removed by the nurse Reason for continuing: Decision to DC catheter Removal date: 08/07/18 Removal time: 18:00 <Cher Freeman - Last Filed: 09/02/18 12:08> Vital signs: Vital Signs 09/03/18 20:00 09/03/18 20:04 09/04/18 00:00 Temperature 97.7 F 98.2 F Pulse Rate 106 H 83 60 Respiratory Rate 18 17 Blood Pressure 130/58 L 126/55 L Pulse Oximetry 98 98 09/04/18 04:00 09/04/18 08:00 09/04/18 12:00 Temperature 97.5 F L 98.1 F 98.0 F Pulse Rate 56 L 85 58 L Respiratory Rate 17 20 20 Blood Pressure 125/60 125/58 L 148/76 H Pulse Oximetry 100 98 95 09/04/18 16:00 Temperature 98.8 F Pulse Rate 67 Respiratory Rate 18 Blood Pressure 133/62 Pulse Oximetry 97 Intake & Output 09/03/18 09/04/18 09/04/18 18:59 06:59 18:59 Intake Total 1996.5 / 1996.5 1100 / 1100 1137.5 / 1137.5 Output Total 3000 / 3000 2700 / 2700 1400 / 1400 Balance -1002.5 / -1002.5 -1600 / -1600 -262.5 / -262.5 Weight 76.9 kg Intake: IV 717.5 / 717.5 200 / 200 717.5 / 717.5 Azactam Inj 2 GM In NS Inj 100 200 / 200 200 / 200 200 / 200 ML @ 100 mls/hr IV.SIG Q6H SHUKRI Rx#:[id number] Vancomycin Inj 1,750 MG In NS 517.5 / 517.5 517.5 / 517.5 Inj 500 ML @ 250 mls/hr IV.SIG Q24H SHUKRI Rx#:[id number] Oral 1080 / 1080 900 / 900 420 / 420 Other 200 / 200 Output: Urine 3000 / 3000 2700 / 2700 1400 / 1400 Other: Date of Last Bowel Movement 09/02/18 09/02/18 # Bowel Movements 1 1 0 - Urinary Catheter Management Indwelling Urethral Catheter Cath placed during this visit: no <Slim Arrieta - Last Filed: 09/04/18 18:06> Assessment and Plan - Assessment (1) Acute kidney injury superimposed on CKD Code(s): N17.9 - Acute kidney failure, unspecified; N18.9 - Chronic kidney disease, unspecified Status: Acute Plan: Patient with SHABANA and RTA. Creatinine slightly elevated at 1.11, fluids encouraged. Vanco though level ordered. Continue Aldactone and NaHCO3. Hypokalemia at 3.1 replacement increased to BID and extra replacement given today. (2) SLE (systemic lupus erythematosus) Code(s): M32.9 - Systemic lupus erythematosus, unspecified Status: Acute Plan: Checked for Lupus activity. DNA DS normal On prednisone (3) Hypertension Code(s): I10 - Essential (primary) hypertension Status: Acute Plan: Well controlled,will monitor (4) Endocarditis of tricuspid valve Code(s): I36.8 - Other nonrheumatic tricuspid valve disorders Status: Acute Plan: Antibiotics per ID <Cher Freeman - Last Filed: 09/02/18 12:08> - Assessment (1) Acute kidney injury superimposed on CKD Code(s): N17.9 - Acute kidney failure, unspecified; N18.9 - Chronic kidney disease, unspecified Status: Acute Plan: Patient seen and examine, agree with above. K is low and on replacement. Continue Aldactone, Creatinine is stable. (2) SLE (systemic lupus erythematosus) Code(s): M32.9 - Systemic lupus erythematosus, unspecified Status: Chronic Qualifiers: Systemic lupus erythematosus type: unspecified (3) Hypertension Code(s): I10 - Essential (primary) hypertension Status: Chronic Qualifiers: Hypertension type: essential hypertension Qualified Code(s): I10 - Essential (primary) hypertension (4) Endocarditis of tricuspid valve Code(s): I36.8 - Other nonrheumatic tricuspid valve disorders Status: Acute <Slim Arrieta - Last Filed: 09/04/18 18:06>
--- NOTE | 2018-09-02 13:52 | P.PN ---
Subjective Interval history: Nursing denies any deterioration since last night. Patient himself has no new complaints today. Says she was talking to another patient down the hallway, shared coloring items with him. Physical Exam Vital signs: Vital Signs 09/01/18 16:00 09/01/18 20:00 09/01/18 22:20 Temperature 98.8 F 98.6 F Pulse Rate 97 H 56 L Respiratory Rate 18 18 16 Blood Pressure 139/61 169/74 H Pulse Oximetry 98 98 09/02/18 00:00 09/02/18 04:00 09/02/18 08:00 Temperature 98.1 F 98.1 F 97.5 F L Pulse Rate 58 L 63 73 Respiratory Rate 20 18 18 Blood Pressure 150/69 H 160/70 H 130/56 L Pulse Oximetry 98 100 99 09/02/18 12:00 Temperature 98.5 F Pulse Rate 70 Respiratory Rate 18 Blood Pressure 112/55 L Pulse Oximetry 98 Intake & Output 09/01/18 09/02/18 09/02/18 18:59 06:59 18:59 Intake Total 1197.5 / 1197.5 560 / 560 Balance 1197.5 / 1197.5 560 / 560 Intake: IV 717.5 / 717.5 200 / 200 Azactam Inj 2 GM In NS Inj 100 200 / 200 200 / 200 ML @ 100 mls/hr IV.SIG Q6H SHUKRI Rx#:[id number] Vancomycin Inj 1,750 MG In NS 517.5 / 517.5 Inj 500 ML @ 250 mls/hr IV.SIG Q24H SHUKRI Rx#:[id number] Oral 480 / 480 360 / 360 Other: # Voids 4 6 Date of Last Bowel Movement 09/01/18 Narrative: Is a more pleasant spirits today Heart sounds regular rate and rhythm, no murmurs Clear lungs bilaterally, unlabored breathing, no acute distress, awake, alert - Urinary Catheter Management Indwelling Urethral Catheter Cath placed during this visit: yes, but has since been removed by the nurse Reason for continuing: Decision to DC catheter Removal date: 08/07/18 Removal time: 18:00 Results - Labs CBC & Chem 7: 08/25/18 04:05 09/02/18 07:00 Laboratory Results - last 24 hr 09/02/18 07:00 Sodium 147 H Potassium 3.1 L Chloride 117 H Carbon Dioxide 23.8 Anion Gap 6 BUN 26 H Creatinine 1.11 H Estimated GFR 54 L Random Glucose 86 Calcium 8.0 L Assessment and Plan - Plan 42 years old female . Was admitted for acute hypoxic respiratory failure , intubated with encephalopathy and severe cardiogenic shock with lactic acidosis. 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 Extubated 08/05/2018. Underwent hemodialysis until 08/06 and needed transfusion of blood. Patient had her p.m. wires dislodged. Now is s/p pacemaker revision (08/29). 09/02: Potassium being replaced per nephrology, continue IV antibiotics. Chronic pain Possible seizures morphine slow release 30 mg at night and 15 mg during the day, and as needed Valium 10 mg p.o. 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 2D echo shows tricuspid valve endocarditis, ID following-antibiotics as below CVVH started 08/03 due to severe acidosis, now transition to HD Prior ICD pocket infection in December 2017 and February 2018. Recently replaced by Dr. Cervantes. Per device rep she did not follow-up for S/ Holding spironolactone 25 mg p.o. daily in view of renal failure. Essential hypertension. - amlodipine PM wires dislodged- 08/25 - PM interrogated -I spoke with TJ - [employer] rep - wires are all dislodged- occasionally capturing Cardiology consulted- Dr. Edinson Cervantes was consulted. Is now s/p pacemaker revision (08/29) Tricuspid valve endocarditis History of ICD pocket infection most recently with MRSA February 2018. She has undergone device removal on 2 prior occasions. Most recently was removed in February 2018 with wound VAC placement. Device replaced 06/27/18. She reported fever 102.7, however she is afebrile here. Continue vancomycin, aztreonam per ID 2D echo showed tricuspid valve endocarditis while bld cx's are neg Yeast vaginitis- - s/p diflucan dose; likely 2/2 immunosupression 2/2 steroids Crohn's disease Renal diet. Protonix PO follow-up with [facility] gastroenterology in the end of August home dose of prednisone 30 mg daily Menorrhagia, patient reports is a chronic problem. Hasn't followed up with gynecology in over a year. 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 Patient states she has not had renal biopsy. She has been followed by nephrology at [facility]. Hypokalemia -replace Systemic lupus erythematosus On chronic steroids -Tapered down from stress dose steroids to chronic baseline dosing Chronic anemia Thrombocytopenia most recent h/h and plts stable, no clinical signs of bleeding Hypothyroidism Continue Synthroid Insomnia melatonin Labile mood. per previous notes Patient refusing to be seen by psychiatry doctor. [place] dr likely. patient is noted on/off disrupting new AICD as noted with pauses, labs are normal , lytes are normal PROPH: SCDs for DVT prophylaxis. Hold pharmacologic DVT prophylaxis at this time due to recent invasive procedure, thrombocytopenia If consistently stays above 90, place on heparin subcu Protonix 40 mg daily for stress ulcer prophylaxis. Discharge Planning: Continues treatment inpatient with IV antibiotics for endocarditis. We will need clearance from infectious disease, nephrology. PT following. Midline placement 08/17/18. This was removed and now has a PICC line. Anticipate antibiotics until 09/17. Not a candidate for DC home with IV abx as patient is not reliable and is disrupting IV lines, AICD PM interrogation 08/25, as noted abnormal pacing
[2018-09-02] MEDS ORDERED: Naloxone Inj 0.4 MG/ML Vial ONE (16:51)
[2018-09-02] MEDS: LORazepam 1 MG Tablet PO SCH (21:20)
[2018-09-02] MEDS: Melatonin 5 MG Tablet PO SCH (21:26)
[2018-09-03] MEDS: Morphine Sulfate Inj 2 MG/ML Vial IV.PUSH PRN ×2 (01:44→12:51)
[2018-09-03] MEDS: Aztreonam Inj 2 GM in Sodium Chloride 0.9% Inj 100 ML IV.SIG SCH ×4 (04:24→21:41)
[2018-09-03] MEDS: Levothyroxine 112 MCG Tablet PO SCH (05:35)
[2018-09-03] MEDS: Heparin - SQ 10,000 UNITS/ML Vial SQ SCH ×3 (05:35→21:44)
[2018-09-03] MEDS: Spironolactone 25 MG Tablet PO SCH ×2 (09:51→17:38)
[2018-09-03] MEDS: Morphine Sulfate 15 MG SR Tablet PO SCH ×2 (09:52→20:38)
[2018-09-03] MEDS: Lisinopril 5 MG Tablet PO SCH (09:53)
[2018-09-03] MEDS: Heparin Central Flush 100 UNIT/ML 5 ML Vial IV.FLUSH SCH (09:53)
[2018-09-03] MEDS: predniSONE 20 MG Tablet PO SCH (09:53)
[2018-09-03] MEDS: amLODIPine 5 MG Tablet PO SCH (09:54)
[2018-09-03] MEDS: Sodium Bicarbonate 650 MG Tablet PO SCH ×3 (09:54→17:38)
[2018-09-03] MEDS: Senna/Docusate Sodium 8.6/50 MG Tablet PO SCH ×2 (10:05→20:39)
[2018-09-03] MEDS ORDERED: Pharmacy Ordered Lab Info OTHER ONE (11:45)
[2018-09-03] MEDS: Vancomycin Inj 1,750 MG in Sodium Chlor 0.9% Inj 500 ML IV.SIG SCH (12:23)
--- NOTE | 2018-09-03 16:09 | P.PN ---
Subjective Interval history: No acute events reported overnight. Patient herself is sitting up today, has coloring paperwork in her bed. Has no new complaints, says her symptoms "come and go." Physical Exam Vital signs: Vital Signs 09/02/18 20:00 09/03/18 00:00 09/03/18 04:00 Temperature 98.2 F Pulse Rate 87 73 69 Respiratory Rate 18 Blood Pressure 161/80 H Pulse Oximetry 98 09/03/18 04:38 09/03/18 08:00 09/03/18 12:00 Temperature 98.2 F 98.4 F 98.2 F Pulse Rate 69 58 L 69 Respiratory Rate 18 16 16 Blood Pressure 148/74 H 111/54 L 101/54 L Pulse Oximetry 98 98 99 Intake & Output 09/02/18 09/03/18 09/03/18 18:59 06:59 18:59 Intake Total 1197.5 / 1197.5 560 / 560 Balance 1197.5 / 1197.5 560 / 560 Weight 79.5 kg Intake: IV 717.5 / 717.5 200 / 200 Azactam Inj 2 GM In NS Inj 100 200 / 200 200 / 200 ML @ 100 mls/hr IV.SIG Q6H SHUKRI Rx#:[id number] Vancomycin Inj 1,750 MG In NS 517.5 / 517.5 Inj 500 ML @ 250 mls/hr IV.SIG Q24H SHUKRI Rx#:[id number] Oral 480 / 480 360 / 360 Other: # Voids 4 5 Date of Last Bowel Movement 09/02/18 Narrative: Resting in bed comfortably, heart sounds regular rate and rhythm, no murmurs Clear lungs bilaterally, unlabored breathing Gauze removed over incision site, Steri-Strips appear clean dry and intact over incision over the left chest/axilla region - Urinary Catheter Management Indwelling Urethral Catheter Cath placed during this visit: yes, but has since been removed by the nurse Reason for continuing: Decision to DC catheter Removal date: 08/07/18 Removal time: 18:00 Results - Labs CBC & Chem 7: 08/25/18 04:05 09/02/18 07:00 Laboratory Results - last 24 hr 09/03/18 12:30 Vancomycin Trough 14.5 H Assessment and Plan - Plan 42 years old female . Was admitted for acute hypoxic respiratory failure , intubated with encephalopathy and severe cardiogenic shock with lactic acidosis. 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 Extubated 08/05/2018. Underwent hemodialysis until 08/06 and needed transfusion of blood. Patient had her p.m. wires dislodged. Now is s/p pacemaker revision (08/29). 09/03: Potassium being replaced per nephrology, continue IV antibiotics. Chronic pain Possible seizures morphine slow release 30 mg at night and 15 mg during the day, and as needed Valium 10 mg p.o. 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 2D echo shows tricuspid valve endocarditis, ID following-antibiotics as below CVVH started 08/03 due to severe acidosis, now transition to HD Prior ICD pocket infection in December 2017 and February 2018. Recently replaced by Dr. Cervantes. Per device rep she did not follow-up for S/ Holding spironolactone 25 mg p.o. daily in view of renal failure. Essential hypertension. - amlodipine PM wires dislodged- 08/25 - PM interrogated -I spoke with TJ - [employer] rep - wires are all dislodged- occasionally capturing Cardiology consulted- Dr. Edinson Cervantes was consulted. Is now s/p pacemaker revision (08/29) Tricuspid valve endocarditis History of ICD pocket infection most recently with MRSA February 2018. She has undergone device removal on 2 prior occasions. Most recently was removed in February 2018 with wound VAC placement. Device replaced 06/27/18. She reported fever 102.7, however she is afebrile here. Continue vancomycin, aztreonam per ID 2D echo showed tricuspid valve endocarditis while bld cx's are neg Yeast vaginitis- - s/p diflucan dose; likely 2/2 immunosupression 2/2 steroids Crohn's disease Renal diet. Protonix PO follow-up with [facility] gastroenterology in the end of August home dose of prednisone 30 mg daily Menorrhagia, patient reports is a chronic problem. Hasn't followed up with gynecology in over a year. 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 Patient states she has not had renal biopsy. She has been followed by nephrology at [facility]. Hypokalemia -replace Systemic lupus erythematosus On chronic steroids -Tapered down from stress dose steroids to chronic baseline dosing Chronic anemia Thrombocytopenia most recent h/h and plts stable, no clinical signs of bleeding Hypothyroidism Continue Synthroid Insomnia melatonin Labile mood. per previous notes Patient refusing to be seen by psychiatry doctor. [place]'s dr kierra. patient is noted on/off disrupting new AICD as noted with pauses, labs are normal , lytes are normal PROPH: SCDs for DVT prophylaxis. Hold pharmacologic DVT prophylaxis at this time due to recent invasive procedure, thrombocytopenia If consistently stays above 90, place on heparin subcu Protonix 40 mg daily for stress ulcer prophylaxis. Discharge Planning: Continues treatment inpatient with IV antibiotics for endocarditis. We will need clearance from infectious disease, nephrology. PT following. Midline placement 08/17/18. This was removed and now has a PICC line. Anticipate antibiotics until 09/17. Not a candidate for DC home with IV abx as patient is not reliable and is disrupting IV lines, AICD PM interrogation 08/25, as noted abnormal pacing
--- NOTE | 2018-09-03 18:10 | ECG ---
Date Performed: 08/30/2018 Time Performed: 17:55:05 PTAGE: 42 years EKG: SINUS BRADYCARDIA BORDERLINE ECG PREVIOUS TRACING : 08/29/2018 18.39 Since the previous tracing, no significant change noted DOCTOR: Albert Garcia Interpretating Date/Time 09/03/2018 18:08:18
[2018-09-03] MEDS: Melatonin 5 MG Tablet PO SCH (20:38)
[2018-09-03] MEDS: LORazepam 1 MG Tablet PO SCH (20:39)
[2018-09-04] MEDS: Morphine Sulfate Inj 2 MG/ML Vial IV.PUSH PRN (02:18)
[2018-09-04] MEDS: Aztreonam Inj 2 GM in Sodium Chloride 0.9% Inj 100 ML IV.SIG SCH ×4 (04:25→21:00)
[2018-09-04] MEDS: Levothyroxine 112 MCG Tablet PO SCH (05:20)
[2018-09-04] MEDS: Heparin - SQ 10,000 UNITS/ML Vial SQ SCH ×3 (05:20→21:01)
[2018-09-04] MEDS: Morphine Sulfate 15 MG SR Tablet PO SCH ×2 (09:48→21:01)
[2018-09-04] MEDS: Spironolactone 25 MG Tablet PO SCH ×2 (09:49→17:14)
[2018-09-04] MEDS: Lisinopril 5 MG Tablet PO SCH (09:50)
[2018-09-04] MEDS: Sodium Bicarbonate 650 MG Tablet PO SCH ×3 (09:50→17:14)
[2018-09-04] MEDS: amLODIPine 5 MG Tablet PO SCH (09:50)
[2018-09-04] MEDS: predniSONE 20 MG Tablet PO SCH (09:51)
[2018-09-04] MEDS: Senna/Docusate Sodium 8.6/50 MG Tablet PO SCH ×2 (09:51→21:02)
[2018-09-04] MEDS: Heparin Central Flush 100 UNIT/ML 5 ML Vial IV.FLUSH SCH (09:57)
--- NOTE | 2018-09-04 11:43 | P.PN ---
Subjective Interval history: Follow-up for endocarditis, status post pacemaker revision-patient seen and examined, awakes to voice, oriented x3. Complains of generalized body aches, pain around pacemaker site. No chest pain, shortness of breath. No fever. No acute changes overnight Physical Exam Vital signs: Vital Signs 09/03/18 12:00 09/03/18 16:00 09/03/18 20:00 Temperature 98.2 F 98.2 F Pulse Rate 80 65 106 H Respiratory Rate 16 20 Blood Pressure 101/54 L 112/53 L Pulse Oximetry 99 99 09/03/18 20:04 09/04/18 00:00 09/04/18 04:00 Temperature 97.7 F 98.2 F 97.5 F L Pulse Rate 83 60 56 L Respiratory Rate 18 17 17 Blood Pressure 130/58 L 126/55 L 125/60 Pulse Oximetry 98 98 100 09/04/18 08:00 Temperature 98.1 F Pulse Rate 64 Respiratory Rate 16 Blood Pressure 125/58 L Pulse Oximetry 98 Intake & Output 09/03/18 09/04/18 09/04/18 18:59 06:59 18:59 Intake Total 1996.5 / 1996.5 1100 / 1100 Output Total 3000 / 3000 2700 / 2700 Balance -1002.5 / -1002.5 -1600 / -1600 Weight 76.9 kg Intake: IV 717.5 / 717.5 200 / 200 Azactam Inj 2 GM In NS Inj 100 200 / 200 200 / 200 ML @ 100 mls/hr IV.SIG Q6H SHUKRI Rx#:[id number] Vancomycin Inj 1,750 MG In NS 517.5 / 517.5 Inj 500 ML @ 250 mls/hr IV.SIG Q24H SHUKRI Rx#:[id number] Oral 1080 / 1080 900 / 900 Other 200 / 200 Output: Urine 3000 / 3000 2700 / 2700 Other: Date of Last Bowel Movement 09/02/18 # Bowel Movements 1 1 Narrative: GENERAL: Well-nourished, well-developed patient in no apparent distress. SKIN: Warm and dry. Left chest wall with incision site intact. HEAD: Atraumatic. Normocephalic. EYES: Pupils equal and round. No scleral icterus. No injection or drainage. ENT: No nasal bleeding or discharge. Mucous membranes pink and moist. NECK: Trachea midline. No JVD. CARDIOVASCULAR: Regular rate and rhythm. RESPIRATORY: No accessory muscle use. Clear to auscultation. Breath sounds equal bilaterally. GASTROINTESTINAL: Abdomen soft, non-tender, nondistended. Hepatic and splenic margins not palpable. MUSCULOSKELETAL: Extremities without clubbing, cyanosis, or edema. No obvious deformities. NEUROLOGICAL: Awakes to voice, oriented x3.. No obvious cranial nerve deficits. Motor grossly within normal limits. Limited range of motion left arm due to pacemaker insertion, wearing sling. Normal speech. PSYCHIATRIC: flat affect. - Urinary Catheter Management Indwelling Urethral Catheter Cath placed during this visit: yes, but has since been removed by the nurse Reason for continuing: Decision to DC catheter Removal date: 08/07/18 Removal time: 18:00 Results - Labs CBC & Chem 7: 08/25/18 04:05 09/02/18 07:00 Laboratory Results - last 24 hr 09/03/18 12:30 Vancomycin Trough 14.5 H Assessment and Plan - Assessment (1) Endocarditis of tricuspid valve Code(s): I36.8 - Other nonrheumatic tricuspid valve disorders Status: Acute (2) Brugada syndrome Code(s): I49.8 - Other specified cardiac arrhythmias Status: Resolved (3) Hypertension Code(s): I10 - Essential (primary) hypertension Status: Chronic (4) ICD (implantable cardioverter-defibrillator) malfunction Code(s): T82.118A - Breakdown (mechanical) of other cardiac electronic device, initial encounter Status: Acute (5) Medical non-compliance Code(s): Z91.19 - Patient's noncompliance with other medical treatment and regimen Status: Acute (6) SLE (systemic lupus erythematosus) Code(s): M32.9 - Systemic lupus erythematosus, unspecified Status: Chronic (7) Chronic pain Code(s): G89.29 - Other chronic pain Status: Chronic (8) Acute kidney injury superimposed on CKD Code(s): N17.9 - Acute kidney failure, unspecified; N18.9 - Chronic kidney disease, unspecified Status: Acute - Plan 42 years old female . Was admitted for acute hypoxic respiratory failure , intubated with encephalopathy and severe cardiogenic shock with lactic acidosis. 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 Extubated 08/05/2018. Underwent hemodialysis until 08/06 and needed transfusion of blood. Patient had her p.m. wires dislodged. Now is s/p pacemaker revision (08/29). Chronic pain Possible seizures -Continue with morphine slow release 30 mg at night and 15 mg during the day -As needed Valium 10 mg p.o. 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 2D echo shows tricuspid valve endocarditis, ID following-antibiotics as below CVVH started 08/03 due to severe acidosis, now transition to HD Prior ICD pocket infection in December 2017 and February 2018. Recently replaced by Dr. Cervantes. Per device rep she did not follow-up for S/ Essential hypertension. - continue Amlodipine PM wires dislodged- 08/25 - PM interrogated -per TJ - [employer] rep- wires are all dislodged- occasionally capturing Cardiology consulted- Dr. Edinson Cervantes was consulted. -s/p pacemaker revision (08/29) Tricuspid valve endocarditis History of ICD pocket infection most recently with MRSA February 2018. She has undergone device removal on 2 prior occasions. Most recently was removed in February 2018 with wound VAC placement. Device replaced 06/27/18. She reported fever 102.7, however she is afebrile here. 2D echo showed tricuspid valve endocarditis while bld cx's are neg -Continue vancomycin, aztreonam per ID Yeast vaginitis- - s/p diflucan dose; likely 2/2 immunosupression 2/2 steroids Crohn's disease -Renal diet. Protonix PO -follow-up with [facility] gastroenterology in the end of August -continue PO steroids Menorrhagia, patient reports is a chronic problem. Hasn't followed up with gynecology in over a year. 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 She has been followed by nephrology at [facility]. -Nephrology following; Currently patient has a right femoral Vas-Cath. -Continue Aldactone and sodium bicarb -BMP in the morning Hypokalemia -replace as needed Systemic lupus erythematosus On chronic steroids -Tapered down from stress dose steroids to chronic baseline dosing Chronic anemia Thrombocytopenia -most recent h/h and plts stable, no clinical signs of bleeding Hypothyroidism -Continue Synthroid Insomnia continue melatonin Labile mood. per previous notes Patient refusing to be seen by psychiatry doctor. [place]'s dx likely. patient is noted on/off disrupting new AICD as noted with pauses, labs are normal , lytes are normal -continue to monitor PROPH: SCDs for DVT prophylaxis and heparin 5000 units subcu every 8 Protonix 40 mg daily for stress ulcer prophylaxis. Repeat labs in the morning Code Status: Full code Discussed Condition With: RN, pt, CM Discharge Planning: DC after Abx completed Midline placement 08/17/18. This was removed and now has a PICC line. Anticipate antibiotics until 09/17. Not a candidate for DC home with IV abx as patient is not reliable and is disrupting IV lines, AICD (3) Hypertension Qualifiers: Hypertension type: essential hypertension Qualified Code(s): I10 - Essential (primary) hypertension (6) SLE (systemic lupus erythematosus) Qualifiers: Systemic lupus erythematosus type: unspecified (7) Chronic pain Qualifiers: Chronic pain type: other chronic pain Qualified Code(s): G89.29 - Other chronic pain
[2018-09-04] MEDS: Vancomycin Inj 1,750 MG in Sodium Chlor 0.9% Inj 500 ML IV.SIG SCH (12:41)
[2018-09-04] MEDS: Melatonin 5 MG Tablet PO SCH (21:01)
[2018-09-04] MEDS: LORazepam 1 MG Tablet PO SCH (21:01)
[2018-09-05] MEDS: Morphine Sulfate Inj 2 MG/ML Vial IV.PUSH PRN ×2 (02:27→15:02)
[2018-09-05] MEDS: Aztreonam Inj 2 GM in Sodium Chloride 0.9% Inj 100 ML IV.SIG SCH ×4 (03:23→23:02)
[2018-09-05 04:03] LABS: Hematocrit 24.9 % (35.0-46.0); Hemoglobin 8.5 gm/dL (11.6-15.3); Mean Corpuscular Hemoglobin 31.6 pg (27.0-34.0); Mean Corpuscular Volume 92.9 fL (80.0-100.0); Mean Platelet Volume 7.6 fL (7.0-11.0); Platelet Count 151 th/mm3 (150-450); Red Blood Count 2.68 mil/mm3 (4.00-5.30); Red Cell Distribution Width 18.6 % (11.6-17.2); White Blood Count 8.4 th/mm3 (4.0-11.0)
[2018-09-05 04:23] LABS: Calcium 7.5 mg/dL (8.5-10.1); Carbon Dioxide 21.7 meq/L (21.0-32.0); Potassium 3.3 meq/L (3.5-5.1)
[2018-09-05] MEDS: Levothyroxine 112 MCG Tablet PO SCH (05:07)
[2018-09-05] MEDS: Heparin - SQ 10,000 UNITS/ML Vial SQ SCH ×3 (05:07→23:03)
[2018-09-05] MEDS: Lisinopril 5 MG Tablet PO SCH (09:25)
[2018-09-05] MEDS: amLODIPine 5 MG Tablet PO SCH (09:25)
[2018-09-05] MEDS: predniSONE 20 MG Tablet PO SCH (09:26)
[2018-09-05] MEDS: Senna/Docusate Sodium 8.6/50 MG Tablet PO SCH ×2 (09:26→20:32)
[2018-09-05] MEDS: Morphine Sulfate 15 MG SR Tablet PO SCH ×2 (09:27→20:31)
[2018-09-05] MEDS: Sodium Bicarbonate 650 MG Tablet PO SCH ×3 (09:27→18:14)
[2018-09-05] MEDS: Heparin Central Flush 100 UNIT/ML 5 ML Vial IV.FLUSH SCH (09:28)
[2018-09-05] MEDS: Spironolactone 25 MG Tablet PO SCH ×2 (10:33→18:14)
--- NOTE | 2018-09-05 10:54 | P.PNNP ---
Subjective Interval history: Resting comfortably. Creatinine remaining stable. Denies any shortness of breath, nausea, or vomiting. Generalized discomfort. <MaryingridSarah reedne - Last Filed: 09/05/18 16:32> Physical Exam Vital signs: Vital Signs 09/04/18 12:00 09/04/18 16:00 09/04/18 20:00 Temperature 98.0 F 98.8 F 99 F Pulse Rate 58 L 59 L 114 H Respiratory Rate 20 18 17 Blood Pressure 148/76 H 133/62 137/76 Pulse Oximetry 95 97 98 09/05/18 00:00 09/05/18 03:24 09/05/18 04:00 Temperature 98.7 F 97.3 F L Pulse Rate 64 51 L 44 L Respiratory Rate 17 17 Blood Pressure 118/74 121/52 L Pulse Oximetry 97 98 09/05/18 08:00 09/05/18 10:10 Temperature 97.6 F Pulse Rate 49 L Respiratory Rate 18 Blood Pressure 155/86 H Pulse Oximetry 98 99 Intake & Output 09/04/18 09/05/18 09/05/18 18:59 06:59 18:59 Intake Total 1137.5 / 1137.5 200 / 200 100 / 100 Output Total 1400 / 1400 750 / 750 Balance -262.5 / -262.5 -550 / -550 100 / 100 Weight 75.8 kg Intake: IV 717.5 / 717.5 200 / 200 100 / 100 Azactam Inj 2 GM In NS Inj 100 200 / 200 200 / 200 100 / 100 ML @ 100 mls/hr IV.SIG Q6H SHUKRI Rx#:[id number] Vancomycin Inj 1,750 MG In NS 517.5 / 517.5 Inj 500 ML @ 250 mls/hr IV.SIG Q24H SHUKRI Rx#:[id number] Oral 420 / 420 Output: Urine 1400 / 1400 750 / 750 Other: Date of Last Bowel Movement 09/02/18 # Bowel Movements 0 Narrative: GENERAL: Alert and oriented x3. NAD SKIN: Warm and dry. Steri strips left chest wall NECK: Supple, trachea midline. No JVD. CARDIOVASCULAR: Bradycardia RESPIRATORY: Breath sounds equal bilaterally. No accessory muscle use. GASTROINTESTINAL: Abdomen soft, Bowel sounds are normal, non tender today MUSCULOSKELETAL: No cyanosis, or edema. moves all extremities spontaneously BACK: Nontender without obvious deformity. No CVA tenderness. - Urinary Catheter Management Indwelling Urethral Catheter Cath placed during this visit: yes, but has since been removed by the nurse Reason for continuing: Decision to DC catheter Removal date: 08/07/18 Removal time: 18:00 <Cher Freeman - Last Filed: 09/05/18 16:32> Vital signs: Vital Signs 09/05/18 16:00 09/05/18 16:30 09/05/18 20:00 Temperature 98.5 F 98.3 F Pulse Rate 84 84 110 H Respiratory Rate 20 18 Blood Pressure 120/60 114/55 L Pulse Oximetry 98 97 09/06/18 00:00 09/06/18 04:00 09/06/18 08:00 Temperature 98.1 F 98.2 F 97.2 F L Pulse Rate 57 L 49 L 51 L Respiratory Rate 18 18 16 Blood Pressure 119/64 118/62 129/57 L Pulse Oximetry 99 98 98 09/06/18 11:45 Temperature 98.2 F Pulse Rate 64 Respiratory Rate 18 Blood Pressure 129/74 Pulse Oximetry 99 Intake & Output 09/05/18 09/06/18 09/06/18 18:59 06:59 18:59 Intake Total 1437.5 / 1437.5 1160 / 1160 100 / 100 Output Total 1200 / 1200 500 / 500 Balance 237.5 / 237.5 660 / 660 100 / 100 Weight 76.7 kg Intake: IV 717.5 / 717.5 200 / 200 100 / 100 Azactam Inj 2 GM In NS Inj 100 200 / 200 200 / 200 100 / 100 ML @ 100 mls/hr IV.SIG Q6H SHUKRI Rx#:[id number] Vancomycin Inj 1,750 MG In NS 517.5 / 517.5 Inj 500 ML @ 250 mls/hr IV.SIG Q24H SHUKRI Rx#:[id number] Oral 720 / 720 960 / 960 Output: Urine 1200 / 1200 500 / 500 Urine/Stool Mix 0 / 0 Other: # Voids 7 Date of Last Bowel Movement 09/05/18 09/05/18 # Bowel Movements 2 - Urinary Catheter Management Indwelling Urethral Catheter Cath placed during this visit: no <Slim Arrieta - Last Filed: 09/06/18 12:31> Assessment and Plan - Assessment (1) Acute kidney injury superimposed on CKD Code(s): N17.9 - Acute kidney failure, unspecified; N18.9 - Chronic kidney disease, unspecified Status: Acute Plan: Patient with SHABANA and RTA. Creatinine stable at 1.06, fluids encouraged. Continue Aldactone and NaHCO3. Hypokalemia at 3.3, on replacement i (2) SLE (systemic lupus erythematosus) Code(s): M32.9 - Systemic lupus erythematosus, unspecified Status: Chronic Qualifiers: Systemic lupus erythematosus type: unspecified Plan: Checked for Lupus activity. DNA DS normal On prednisone (3) Hypertension Code(s): I10 - Essential (primary) hypertension Status: Chronic Qualifiers: Hypertension type: essential hypertension Qualified Code(s): I10 - Essential (primary) hypertension Plan: Well controlled,will monitor (4) Endocarditis of tricuspid valve Code(s): I36.8 - Other nonrheumatic tricuspid valve disorders Status: Acute Plan: Antibiotics per ID <Cher Freeman - Last Filed: 09/05/18 16:32> - Assessment (1) Acute kidney injury superimposed on CKD Code(s): N17.9 - Acute kidney failure, unspecified; N18.9 - Chronic kidney disease, unspecified Status: Acute Plan: Patient seen and examined, agree with above. Creatinine is stable, at 1.0. Patient has RTA. K is 3.3, continue Kcl, NaHco3 and Aldactone. (2) SLE (systemic lupus erythematosus) Code(s): M32.9 - Systemic lupus erythematosus, unspecified Status: Chronic Qualifiers: Systemic lupus erythematosus type: unspecified (3) Hypertension Code(s): I10 - Essential (primary) hypertension Status: Chronic Qualifiers: Hypertension type: essential hypertension Qualified Code(s): I10 - Essential (primary) hypertension (4) Endocarditis of tricuspid valve Code(s): I36.8 - Other nonrheumatic tricuspid valve disorders Status: Acute <Slim Arrieta - Last Filed: 09/06/18 12:31>
[2018-09-05] MEDS: Vancomycin Inj 1,750 MG in Sodium Chlor 0.9% Inj 500 ML IV.SIG SCH (12:20)
[2018-09-05] MEDS ORDERED: Potassium Chloride 25 MEQ Effervescent Tablet PO ONE (13:42)
--- NOTE | 2018-09-05 13:46 | P.PN ---
Subjective Interval history: Follow-up for endocarditis, status post pacemaker revision-patient seen and examined, awake, eating breakfast. Occ. abd. discomfort with eating. No chest pain, shortness of breath. No fever. No acute changes overnight. Gen. pain. Physical Exam Vital signs: Vital Signs 09/04/18 16:00 09/04/18 20:00 09/05/18 00:00 Temperature 98.8 F 99 F 98.7 F Pulse Rate 59 L 114 H 64 Respiratory Rate 18 17 17 Blood Pressure 133/62 137/76 118/74 Pulse Oximetry 97 98 97 09/05/18 03:24 09/05/18 04:00 09/05/18 08:00 Temperature 97.3 F L 97.6 F Pulse Rate 51 L 44 L 49 L Respiratory Rate 17 18 Blood Pressure 121/52 L 155/86 H Pulse Oximetry 98 98 09/05/18 10:10 Temperature Pulse Rate Respiratory Rate Blood Pressure Pulse Oximetry 99 Intake & Output 09/04/18 09/05/18 09/05/18 18:59 06:59 18:59 Intake Total 1137.5 / 1137.5 200 / 200 100 / 100 Output Total 1400 / 1400 750 / 750 Balance -262.5 / -262.5 -550 / -550 100 / 100 Weight 75.8 kg Intake: IV 717.5 / 717.5 200 / 200 100 / 100 Azactam Inj 2 GM In NS Inj 100 200 / 200 200 / 200 100 / 100 ML @ 100 mls/hr IV.SIG Q6H SHKURI Rx#:[id number] Vancomycin Inj 1,750 MG In NS 517.5 / 517.5 Inj 500 ML @ 250 mls/hr IV.SIG Q24H SHUKRI Rx#:[id number] Oral 420 / 420 Output: Urine 1400 / 1400 750 / 750 Other: Date of Last Bowel Movement 09/02/18 # Bowel Movements 0 Narrative: GENERAL: Well-nourished, well-developed patient in no apparent distress. SKIN: Warm and dry. Left chest wall with incision site intact. HEAD: Atraumatic. Normocephalic. EYES: Pupils equal and round. No scleral icterus. No injection or drainage. ENT: No nasal bleeding or discharge. Mucous membranes pink and moist. NECK: Trachea midline. No JVD. CARDIOVASCULAR: Regular rate and rhythm. RESPIRATORY: No accessory muscle use. Clear to auscultation. Breath sounds equal bilaterally. GASTROINTESTINAL: Abdomen soft, non-tender, nondistended. Hepatic and splenic margins not palpable. MUSCULOSKELETAL: Extremities without clubbing, cyanosis, or edema. No obvious deformities. NEUROLOGICAL: Awakes to voice, oriented x3.. No obvious cranial nerve deficits. Motor grossly within normal limits. Limited range of motion left arm due to pacemaker insertion, wearing sling. Normal speech. PSYCH: cooperative. - Urinary Catheter Management Indwelling Urethral Catheter Cath placed during this visit: yes, but has since been removed by the nurse Reason for continuing: Decision to DC catheter Removal date: 08/07/18 Removal time: 18:00 Results - Labs CBC & Chem 7: 09/05/18 03:56 09/05/18 03:56 Laboratory Results - last 24 hr 09/05/18 09/05/18 03:56 03:56 WBC 8.4 RBC 2.68 L Hgb 8.5 L Hct 24.9 L MCV 92.9 MCH 31.6 MCHC 34.0 RDW 18.6 H Plt Count 151 MPV 7.6 Sodium 145 Potassium 3.3 L Chloride 116 H Carbon Dioxide 21.7 Anion Gap 7 BUN 22 H Creatinine 1.06 H Estimated GFR 57 L Random Glucose 113 H Calcium 7.5 L Assessment and Plan - Assessment (1) Endocarditis of tricuspid valve Code(s): I36.8 - Other nonrheumatic tricuspid valve disorders Status: Acute (2) Brugada syndrome Code(s): I49.8 - Other specified cardiac arrhythmias Status: Resolved (3) Hypertension Code(s): I10 - Essential (primary) hypertension Status: Chronic (4) ICD (implantable cardioverter-defibrillator) malfunction Code(s): T82.118A - Breakdown (mechanical) of other cardiac electronic device, initial encounter Status: Acute (5) Medical non-compliance Code(s): Z91.19 - Patient's noncompliance with other medical treatment and regimen Status: Acute (6) SLE (systemic lupus erythematosus) Code(s): M32.9 - Systemic lupus erythematosus, unspecified Status: Chronic (7) Chronic pain Code(s): G89.29 - Other chronic pain Status: Chronic (8) Acute kidney injury superimposed on CKD Code(s): N17.9 - Acute kidney failure, unspecified; N18.9 - Chronic kidney disease, unspecified Status: Acute - Plan 42 years old female . Was admitted for acute hypoxic respiratory failure , intubated with encephalopathy and severe cardiogenic shock with lactic acidosis. 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 Extubated 08/05/2018. Underwent hemodialysis until 08/06 and needed transfusion of blood. Patient had her p.m. wires dislodged. Now is s/p pacemaker revision (08/29). Chronic pain Possible seizures -Continue with morphine slow release 30 mg at night and 15 mg during the day -As needed Valium 10 mg p.o. 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 2D echo shows tricuspid valve endocarditis, ID following-antibiotics as below CVVH started 08/03 due to severe acidosis, now transition to HD Prior ICD pocket infection in December 2017 and February 2018. Recently replaced by Dr. Cervantes. Per device rep she did not follow-up for S/ Essential hypertension. - continue Amlodipine PM wires dislodged- 08/25 - PM interrogated -per TJ - [employer] rep- wires are all dislodged- occasionally capturing Cardiology consulted- Dr. Edinson Cervantes was consulted. -s/p pacemaker revision (08/29) Tricuspid valve endocarditis History of ICD pocket infection most recently with MRSA February 2018. She has undergone device removal on 2 prior occasions. Most recently was removed in February 2018 with wound VAC placement. Device replaced 06/27/18. She reported fever 102.7, however she is afebrile here. 2D echo showed tricuspid valve endocarditis while bld cx's are neg -Continue vancomycin, aztreonam per ID Yeast vaginitis- - s/p diflucan dose; likely 2/2 immunosupression 2/2 steroids Crohn's disease -Renal diet. Protonix PO -follow-up with [facility] gastroenterology in the end of August -continue PO steroids Menorrhagia, patient reports is a chronic problem. Hasn't followed up with gynecology in over a year. 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 She has been followed by nephrology at [facility]. -Nephrology following; Currently patient has a right femoral Vas-Cath. -Continue Aldactone and sodium bicarb -creat stable. Hypokalemia -replace as needed Systemic lupus erythematosus On chronic steroids -Tapered down from stress dose steroids to chronic baseline dosing Chronic anemia Thrombocytopenia -most recent h/h and plts stable, no clinical signs of bleeding Hypothyroidism -Continue Synthroid Insomnia continue melatonin Labile mood. per previous notes Patient refusing to be seen by psychiatry doctor. [place]'s dx likely. patient is noted on/off disrupting new AICD as noted with pauses, labs are normal , lytes are normal -continue to monitor PROPH: SCDs for DVT prophylaxis and heparin 5000 units subcu every 8 Protonix 40 mg daily for stress ulcer prophylaxis. Labs reviewed, stable. Continue to monitor Code Status: Full code Discussed Condition With: RN, pt, CM Discharge Planning: DC after Abx completed Midline placement 08/17/18. This was removed and now has a PICC line. Anticipate antibiotics until 09/17. Not a candidate for DC home with IV abx as patient is not reliable and is disrupting IV lines, AICD (3) Hypertension Qualifiers: Hypertension type: essential hypertension Qualified Code(s): I10 - Essential (primary) hypertension (6) SLE (systemic lupus erythematosus) Qualifiers: Systemic lupus erythematosus type: unspecified (7) Chronic pain Qualifiers: Chronic pain type: other chronic pain Qualified Code(s): G89.29 - Other chronic pain
[2018-09-05] MEDS: Melatonin 5 MG Tablet PO SCH (20:32)
[2018-09-05] MEDS: LORazepam 1 MG Tablet PO SCH (20:32)
[2018-09-06] MEDS: Morphine Sulfate Inj 2 MG/ML Vial IV.PUSH PRN ×2 (02:59→12:15)
[2018-09-06] MEDS: Aztreonam Inj 2 GM in Sodium Chloride 0.9% Inj 100 ML IV.SIG SCH ×4 (03:00→21:36)
[2018-09-06] MEDS: Heparin - SQ 10,000 UNITS/ML Vial SQ SCH ×3 (05:23→21:35)
[2018-09-06] MEDS: Levothyroxine 112 MCG Tablet PO SCH (05:23)
[2018-09-06] MEDS: Senna/Docusate Sodium 8.6/50 MG Tablet PO SCH ×2 (08:24→21:36)
[2018-09-06] MEDS: predniSONE 20 MG Tablet PO SCH (08:26)
[2018-09-06] MEDS: amLODIPine 5 MG Tablet PO SCH (08:27)
[2018-09-06] MEDS: Sodium Bicarbonate 650 MG Tablet PO SCH ×3 (08:28→17:01)
[2018-09-06] MEDS: Morphine Sulfate 15 MG SR Tablet PO SCH ×2 (08:28→21:35)
[2018-09-06] MEDS: Lisinopril 5 MG Tablet PO SCH (08:29)
[2018-09-06] MEDS: Heparin Central Flush 100 UNIT/ML 5 ML Vial IV.FLUSH SCH (08:29)
[2018-09-06] MEDS: Spironolactone 25 MG Tablet PO SCH ×2 (08:32→17:01)
[2018-09-06] MEDS: Vancomycin Inj 1,750 MG in Sodium Chlor 0.9% Inj 500 ML IV.SIG SCH (11:13)
--- NOTE | 2018-09-06 15:16 | P.PN ---
Subjective Interval history: Follow-up for endocarditis, status post pacemaker revision-patient seen and examined. C/O abd. cramps, has menses. Has been walking around unit. No cp, no sob. Gen. aches. No fever Physical Exam Vital signs: Vital Signs 09/05/18 16:00 09/05/18 16:30 09/05/18 20:00 Temperature 98.5 F 98.3 F Pulse Rate 84 84 110 H Respiratory Rate 20 18 Blood Pressure 120/60 114/55 L Pulse Oximetry 98 97 09/06/18 00:00 09/06/18 04:00 09/06/18 08:00 Temperature 98.1 F 98.2 F 97.2 F L Pulse Rate 57 L 49 L 51 L Respiratory Rate 18 18 16 Blood Pressure 119/64 118/62 129/57 L Pulse Oximetry 99 98 98 09/06/18 11:45 Temperature 98.2 F Pulse Rate 64 Respiratory Rate 18 Blood Pressure 129/74 Pulse Oximetry 99 Intake & Output 09/05/18 09/06/18 09/06/18 18:59 06:59 18:59 Intake Total 1437.5 / 1437.5 1160 / 1160 600 / 600 Output Total 1200 / 1200 500 / 500 Balance 237.5 / 237.5 660 / 660 600 / 600 Weight 76.7 kg Intake: IV 717.5 / 717.5 200 / 200 600 / 600 Azactam Inj 2 GM In NS Inj 100 200 / 200 200 / 200 100 / 100 ML @ 100 mls/hr IV.SIG Q6H SHUKRI Rx#:[id number] Vancomycin Inj 1,750 MG In NS 517.5 / 517.5 500 / 500 Inj 500 ML @ 250 mls/hr IV.SIG Q24H SHUKRI Rx#:[id number] Oral 720 / 720 960 / 960 Output: Urine 1200 / 1200 500 / 500 Urine/Stool Mix 0 / 0 Other: # Voids 7 Date of Last Bowel Movement 09/05/18 09/05/18 # Bowel Movements 2 Narrative: GENERAL: Well-nourished, well-developed patient in no apparent distress. SKIN: Warm and dry. Left chest wall with incision site intact. HEAD: Atraumatic. Normocephalic. EYES: Pupils equal and round. No scleral icterus. No injection or drainage. ENT: No nasal bleeding or discharge. Mucous membranes pink and moist. NECK: Trachea midline. No JVD. CARDIOVASCULAR: Regular rate and rhythm. RESPIRATORY: No accessory muscle use. Clear to auscultation. Breath sounds equal bilaterally. GASTROINTESTINAL: Abdomen soft, non-tender, nondistended. Hepatic and splenic margins not palpable. MUSCULOSKELETAL: Extremities without clubbing, cyanosis, or edema. No obvious deformities. NEUROLOGICAL: Awakes to voice, oriented x3.. No obvious cranial nerve deficits. Motor grossly within normal limits. Limited range of motion left arm due to pacemaker insertion, wearing sling. Normal speech. PSYCH: cooperative. - Urinary Catheter Management Indwelling Urethral Catheter Cath placed during this visit: yes, but has since been removed by the nurse Reason for continuing: Decision to DC catheter Removal date: 08/07/18 Removal time: 18:00 Results - Labs CBC & Chem 7: 09/05/18 03:56 09/05/18 03:56 Assessment and Plan - Assessment (1) Endocarditis of tricuspid valve Code(s): I36.8 - Other nonrheumatic tricuspid valve disorders Status: Acute (2) Brugada syndrome Code(s): I49.8 - Other specified cardiac arrhythmias Status: Resolved (3) Hypertension Code(s): I10 - Essential (primary) hypertension Status: Chronic (4) ICD (implantable cardioverter-defibrillator) malfunction Code(s): T82.118A - Breakdown (mechanical) of other cardiac electronic device, initial encounter Status: Acute (5) Medical non-compliance Code(s): Z91.19 - Patient's noncompliance with other medical treatment and regimen Status: Acute (6) SLE (systemic lupus erythematosus) Code(s): M32.9 - Systemic lupus erythematosus, unspecified Status: Chronic (7) Chronic pain Code(s): G89.29 - Other chronic pain Status: Chronic (8) Acute kidney injury superimposed on CKD Code(s): N17.9 - Acute kidney failure, unspecified; N18.9 - Chronic kidney disease, unspecified Status: Acute - Plan 42 years old female . Was admitted for acute hypoxic respiratory failure , intubated with encephalopathy and severe cardiogenic shock with lactic acidosis. 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 Extubated 08/05/2018. Underwent hemodialysis until 08/06 and needed transfusion of blood. Patient had her p.m. wires dislodged. Now is s/p pacemaker revision (08/29). 09/06-no changes overnight, continue with present care Chronic pain Possible seizures -Continue with morphine slow release 30 mg at night and 15 mg during the day -As needed Valium 10 mg p.o. 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 2D echo shows tricuspid valve endocarditis, ID following-antibiotics as below CVVH started 08/03 due to severe acidosis, now transition to HD Prior ICD pocket infection in December 2017 and February 2018. Recently replaced by Dr. Cervantes. Per device rep she did not follow-up for S/ Essential hypertension. - continue Amlodipine PM wires dislodged- 08/25 - PM interrogated -per TJ - [employer] rep- wires are all dislodged- occasionally capturing Cardiology consulted- Dr. Edinson Cervantes was consulted. -s/p pacemaker revision (08/29) Tricuspid valve endocarditis History of ICD pocket infection most recently with MRSA February 2018. She has undergone device removal on 2 prior occasions. Most recently was removed in February 2018 with wound VAC placement. Device replaced 06/27/18. She reported fever 102.7, however she is afebrile here. 2D echo showed tricuspid valve endocarditis while bld cx's are neg -Continue vancomycin, aztreonam per ID Yeast vaginitis- - s/p diflucan dose; likely 2/2 immunosupression 2/2 steroids Crohn's disease -Renal diet. Protonix PO -follow-up with [facility] gastroenterology in the end of August -continue PO steroids Menorrhagia, patient reports is a chronic problem. Hasn't followed up with gynecology in over a year. 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 She has been followed by nephrology at [facility]. -Nephrology following; Currently patient has a right femoral Vas-Cath. -Continue Aldactone and sodium bicarb -creat stable. Hypokalemia -replace as needed Systemic lupus erythematosus On chronic steroids -Tapered down from stress dose steroids to chronic baseline dosing Chronic anemia Thrombocytopenia -most recent h/h and plts stable, no clinical signs of bleeding Hypothyroidism -Continue Synthroid Insomnia continue melatonin Labile mood. per previous notes Patient refusing to be seen by psychiatry doctor. [place]'s dx likely. patient is noted on/off disrupting new AICD as noted with pauses, labs are normal , lytes are normal -continue to monitor PROPH: SCDs for DVT prophylaxis and heparin 5000 units subcu every 8 Protonix 40 mg daily for stress ulcer prophylaxis. Discharge Planning: DC after Abx completed Midline placement 08/17/18. This was removed and now has a PICC line. Anticipate antibiotics until 09/17. Not a candidate for DC home with IV abx as patient is not reliable and is disrupting IV lines, AICD (3) Hypertension Qualifiers: Hypertension type: essential hypertension Qualified Code(s): I10 - Essential (primary) hypertension (6) SLE (systemic lupus erythematosus) Qualifiers: Systemic lupus erythematosus type: unspecified (7) Chronic pain Qualifiers: Chronic pain type: other chronic pain Qualified Code(s): G89.29 - Other chronic pain
[2018-09-06] MEDS: LORazepam 1 MG Tablet PO SCH (21:34)
[2018-09-06] MEDS: Melatonin 5 MG Tablet PO SCH (21:35)
[2018-09-07] MEDS: Morphine Sulfate Inj 2 MG/ML Vial IV.PUSH PRN ×4 (01:46→22:17)
[2018-09-07] MEDS: Aztreonam Inj 2 GM in Sodium Chloride 0.9% Inj 100 ML IV.SIG SCH ×4 (03:42→21:31)
[2018-09-07] MEDS: Heparin - SQ 10,000 UNITS/ML Vial SQ SCH ×3 (06:21→21:29)
[2018-09-07] MEDS: Levothyroxine 112 MCG Tablet PO SCH (06:22)
[2018-09-07] MEDS: amLODIPine 5 MG Tablet PO SCH (09:26)
[2018-09-07] MEDS: Lisinopril 5 MG Tablet PO SCH (09:26)
[2018-09-07] MEDS: Sodium Bicarbonate 650 MG Tablet PO SCH ×3 (09:26→17:59)
[2018-09-07] MEDS: Morphine Sulfate 15 MG SR Tablet PO SCH ×2 (09:26→21:30)
[2018-09-07] MEDS: predniSONE 20 MG Tablet PO SCH (09:27)
[2018-09-07] MEDS: Heparin Central Flush 100 UNIT/ML 5 ML Vial IV.FLUSH SCH (09:27)
[2018-09-07] MEDS: Spironolactone 25 MG Tablet PO SCH ×2 (09:39→17:59)
--- NOTE | 2018-09-07 10:54 | P.PN ---
Subjective Interval history: Follow-up for endocarditis, status post pacemaker revision-patient seen and examined. Complains of left sided chest wall, this is chronic. No shortness of breath. Has been ambulating, does not want to continue taking heparin subcu. Sinus bradycardia on the monitor. Physical Exam Vital signs: Vital Signs 09/06/18 11:45 09/06/18 16:00 09/06/18 20:00 Temperature 98.2 F 98.8 F 98.7 F Pulse Rate 64 63 50 L Respiratory Rate 18 20 18 Blood Pressure 129/74 115/69 119/56 L Pulse Oximetry 99 98 98 09/06/18 23:51 09/07/18 00:00 09/07/18 04:00 Temperature 99 F 98.2 F Pulse Rate 54 L 47 L 47 L Respiratory Rate 18 18 Blood Pressure 128/59 L 116/62 Pulse Oximetry 98 98 09/07/18 08:00 09/07/18 08:05 Temperature 98.4 F Pulse Rate 48 L 46 L Respiratory Rate 20 18 Blood Pressure 137/63 Pulse Oximetry 97 Intake & Output 09/06/18 09/07/18 09/07/18 18:59 06:59 18:59 Intake Total 1900 / 1900 320 / 320 Output Total 1800 / 1800 1000 / 1000 Balance 100 / 100 -680 / -680 Weight 76.3 kg Intake: IV 700 / 700 200 / 200 Azactam Inj 2 GM In NS Inj 100 200 / 200 200 / 200 ML @ 100 mls/hr IV.SIG Q6H SHUKRI Rx#:[id number] Vancomycin Inj 1,750 MG In NS 500 / 500 Inj 500 ML @ 250 mls/hr IV.SIG Q24H SHUKRI Rx#:[id number] Oral 1200 / 1200 120 / 120 Output: Urine 1800 / 1800 1000 / 1000 Other: Date of Last Bowel Movement 09/05/18 09/05/18 09/05/18 # Bowel Movements 1 0 Narrative: GENERAL: Well-nourished, well-developed patient in no apparent distress. SKIN: Warm and dry. Left chest wall with incision site intact. HEAD: Atraumatic. Normocephalic. EYES: Pupils equal and round. No scleral icterus. No injection or drainage. ENT: No nasal bleeding or discharge. Mucous membranes pink and moist. NECK: Trachea midline. No JVD. CARDIOVASCULAR: Regular rate and rhythm. RESPIRATORY: No accessory muscle use. Clear to auscultation. Breath sounds equal bilaterally. GASTROINTESTINAL: Abdomen soft, non-tender, nondistended. Hepatic and splenic margins not palpable. MUSCULOSKELETAL: Extremities without clubbing, cyanosis, or edema. No obvious deformities. NEUROLOGICAL: Awakes to voice, oriented x3.. No obvious cranial nerve deficits. Motor grossly within normal limits. Limited range of motion left arm due to pacemaker insertion, wearing sling. Normal speech. PSYCH: cooperative. - Urinary Catheter Management Indwelling Urethral Catheter Cath placed during this visit: yes, but has since been removed by the nurse Reason for continuing: Decision to DC catheter Removal date: 08/07/18 Removal time: 18:00 Results - Labs CBC & Chem 7: 09/05/18 03:56 09/07/18 06:00 Laboratory Results - last 24 hr 09/07/18 06:00 Creatinine 0.99 Estimated GFR 62 L Assessment and Plan - Assessment (1) Endocarditis of tricuspid valve Code(s): I36.8 - Other nonrheumatic tricuspid valve disorders Status: Acute (2) Brugada syndrome Code(s): I49.8 - Other specified cardiac arrhythmias Status: Resolved (3) Hypertension Code(s): I10 - Essential (primary) hypertension Status: Chronic (4) ICD (implantable cardioverter-defibrillator) malfunction Code(s): T82.118A - Breakdown (mechanical) of other cardiac electronic device, initial encounter Status: Acute (5) Medical non-compliance Code(s): Z91.19 - Patient's noncompliance with other medical treatment and regimen Status: Acute (6) SLE (systemic lupus erythematosus) Code(s): M32.9 - Systemic lupus erythematosus, unspecified Status: Chronic (7) Chronic pain Code(s): G89.29 - Other chronic pain Status: Chronic (8) Acute kidney injury superimposed on CKD Code(s): N17.9 - Acute kidney failure, unspecified; N18.9 - Chronic kidney disease, unspecified Status: Acute - Plan 42 years old female . Was admitted for acute hypoxic respiratory failure , intubated with encephalopathy and severe cardiogenic shock with lactic acidosis. 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 Extubated 08/05/2018. Underwent hemodialysis until 08/06 and needed transfusion of blood. Patient had her p.m. wires dislodged. Now is s/p pacemaker revision (08/29). 09/06-no changes overnight, continue with present care 09/07-no changes Chronic pain Possible seizures -Continue with morphine slow release 30 mg at night and 15 mg during the day -As needed Valium 10 mg p.o. 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 2D echo shows tricuspid valve endocarditis, ID following-antibiotics as below CVVH started 08/03 due to severe acidosis, now transition to HD Prior ICD pocket infection in December 2017 and February 2018. Recently replaced by Dr. Cervantes. Per device rep she did not follow-up for S/ Essential hypertension. - continue Amlodipine PM wires dislodged- 08/25 - PM interrogated -per TJ - [employer] rep- wires are all dislodged- occasionally capturing Cardiology consulted- Dr. Edinson Cervantes was consulted. -s/p pacemaker revision (08/29) Tricuspid valve endocarditis History of ICD pocket infection most recently with MRSA February 2018. She has undergone device removal on 2 prior occasions. Most recently was removed in February 2018 with wound VAC placement. Device replaced 06/27/18. She reported fever 102.7, however she is afebrile here. 2D echo showed tricuspid valve endocarditis while bld cx's are neg -Continue vancomycin, aztreonam per ID Yeast vaginitis- - s/p diflucan dose; likely 2/2 immunosupression 2/2 steroids Crohn's disease -Renal diet. Protonix PO -follow-up with [facility] gastroenterology in the end of August -continue PO steroids Menorrhagia, patient reports is a chronic problem. Hasn't followed up with gynecology in over a year. 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 She has been followed by nephrology at [facility]. -Nephrology following; Currently patient has a right femoral Vas-Cath. -Continue Aldactone and sodium bicarb -creat stable. Hypokalemia -replace as needed Systemic lupus erythematosus On chronic steroids -Tapered down from stress dose steroids to chronic baseline dosing Chronic anemia Thrombocytopenia -most recent h/h and plts stable, no clinical signs of bleeding Hypothyroidism -Continue Synthroid Insomnia continue melatonin Labile mood. per previous notes Patient refusing to be seen by psychiatry doctor. [place]'s dx likely. patient is noted on/off disrupting new AICD as noted with pauses, labs are normal , lytes are normal -continue to monitor PROPH: SCDs for DVT prophylaxis and heparin 5000 units subcu every 8 Protonix 40 mg daily for stress ulcer prophylaxis. BMP in am Code Status: Full code Discussed Condition With: RN, pt, CM Discharge Planning: DC after Abx completed Midline placement 08/17/18. This was removed and now has a PICC line. Anticipate antibiotics until 09/17. Not a candidate for DC home with IV abx as patient is not reliable and is disrupting IV lines, AICD (3) Hypertension Qualifiers: Hypertension type: essential hypertension Qualified Code(s): I10 - Essential (primary) hypertension (6) SLE (systemic lupus erythematosus) Qualifiers: Systemic lupus erythematosus type: unspecified (7) Chronic pain Qualifiers: Chronic pain type: other chronic pain Qualified Code(s): G89.29 - Other chronic pain
[2018-09-07] MEDS: Senna/Docusate Sodium 8.6/50 MG Tablet PO SCH ×2 (11:28→21:31)
[2018-09-07] MEDS: Vancomycin Inj 1,750 MG in Sodium Chlor 0.9% Inj 500 ML IV.SIG SCH (11:58)
--- NOTE | 2018-09-07 12:48 | P.PNNP ---
Subjective Interval history: Denies any shortness of breath, nausea, or vomiting. Left sided chest discomfort with pacemaker site. Creatinine stable. <Cher Freeman - Last Filed: 09/07/18 12:43> Physical Exam Vital signs: Vital Signs 09/06/18 16:00 09/06/18 20:00 09/06/18 23:51 Temperature 98.8 F 98.7 F 99 F Pulse Rate 63 50 L 54 L Respiratory Rate 20 18 18 Blood Pressure 115/69 119/56 L 128/59 L Pulse Oximetry 98 98 98 09/07/18 00:00 09/07/18 04:00 09/07/18 08:00 Temperature 98.2 F Pulse Rate 47 L 47 L 48 L Respiratory Rate 18 20 Blood Pressure 116/62 Pulse Oximetry 98 09/07/18 08:05 09/07/18 12:00 Temperature 98.4 F 98.2 F Pulse Rate 46 L 82 Respiratory Rate 18 18 Blood Pressure 137/63 114/53 L Pulse Oximetry 97 98 Intake & Output 09/06/18 09/07/18 09/07/18 18:59 06:59 18:59 Intake Total 1900 / 1900 320 / 320 100 / 100 Output Total 1800 / 1800 1000 / 1000 Balance 100 / 100 -680 / -680 100 / 100 Weight 76.3 kg Intake: IV 700 / 700 200 / 200 100 / 100 Azactam Inj 2 GM In NS Inj 100 200 / 200 200 / 200 100 / 100 ML @ 100 mls/hr IV.SIG Q6H SHUKRI Rx#:[id number] Vancomycin Inj 1,750 MG In NS 500 / 500 Inj 500 ML @ 250 mls/hr IV.SIG Q24H SHUKRI Rx#:[id number] Oral 1200 / 1200 120 / 120 Output: Urine 1800 / 1800 1000 / 1000 Other: Date of Last Bowel Movement 09/05/18 09/05/18 09/05/18 # Bowel Movements 1 0 Narrative: GENERAL: Alert and oriented x3. NAD SKIN: Warm and dry. Steri strips left chest wall NECK: Supple, trachea midline. No JVD. CARDIOVASCULAR: Bradycardia RESPIRATORY: Breath sounds equal bilaterally. No accessory muscle use. GASTROINTESTINAL: Abdomen soft, Bowel sounds are normal, non tender today MUSCULOSKELETAL: No cyanosis, or edema. moves all extremities spontaneously BACK: Nontender without obvious deformity. No CVA tenderness. - Urinary Catheter Management Indwelling Urethral Catheter Cath placed during this visit: yes, but has since been removed by the nurse Reason for continuing: Decision to DC catheter Removal date: 08/07/18 Removal time: 18:00 <Cher Freeman - Last Filed: 09/07/18 12:43> Vital signs: Vital Signs 09/11/18 20:00 09/12/18 00:00 09/12/18 04:00 Temperature 98.5 F 98.7 F 98.3 F Pulse Rate 77 74 65 Respiratory Rate 17 14 14 Blood Pressure 100/55 L 110/67 95/54 L Pulse Oximetry 98 97 97 09/12/18 08:00 09/12/18 12:00 Temperature 98.1 F 98.6 F Pulse Rate 65 74 Respiratory Rate 20 20 Blood Pressure 105/51 L 104/50 L Pulse Oximetry 97 98 Intake & Output 09/11/18 09/12/18 09/12/18 18:59 06:59 18:59 Intake Total 717.5 / 717.5 660 / 660 100 / 100 Balance 717.5 / 717.5 660 / 660 100 / 100 Weight 86.1 kg Intake: IV 717.5 / 717.5 200 / 200 100 / 100 Azactam Inj 2 GM In NS Inj 100 200 / 200 200 / 200 100 / 100 ML @ 100 mls/hr IV.SIG Q6H SHUKRI Rx#:[id number] Vancomycin Inj 1,750 MG In NS 517.5 / 517.5 Inj 500 ML @ 250 mls/hr IV.SIG Q24H SHUKRI Rx#:[id number] Oral 460 / 460 Other: # Voids 15 3 Date of Last Bowel Movement 09/07/18 # Bowel Movements 2 - Urinary Catheter Management Indwelling Urethral Catheter Cath placed during this visit: no <Slim Arrieta - Last Filed: 09/12/18 18:32> Assessment and Plan - Assessment (1) Acute kidney injury superimposed on CKD Code(s): N17.9 - Acute kidney failure, unspecified; N18.9 - Chronic kidney disease, unspecified Status: Acute Plan: Creatinine has remained stable, fluids encouraged. Continue Aldactone, potassium replacement and NaHCO3. Labs periodically (2) SLE (systemic lupus erythematosus) Code(s): M32.9 - Systemic lupus erythematosus, unspecified Status: Chronic Qualifiers: Systemic lupus erythematosus type: unspecified Plan: Checked for Lupus activity. DNA DS normal On prednisone (3) Hypertension Code(s): I10 - Essential (primary) hypertension Status: Chronic Qualifiers: Hypertension type: essential hypertension Qualified Code(s): I10 - Essential (primary) hypertension Plan: Well controlled,will monitor (4) Endocarditis of tricuspid valve Code(s): I36.8 - Other nonrheumatic tricuspid valve disorders Status: Acute Plan: Antibiotics per ID <Cher Freeman - Last Filed: 09/07/18 12:43> - Assessment (1) Acute kidney injury superimposed on CKD Code(s): N17.9 - Acute kidney failure, unspecified; N18.9 - Chronic kidney disease, unspecified Status: Acute Plan: Patient seen and examined, agree with above. Creatinine is stable, has RTA, Follow K and Hco3, on replacement. (2) SLE (systemic lupus erythematosus) Code(s): M32.9 - Systemic lupus erythematosus, unspecified Status: Chronic Qualifiers: Systemic lupus erythematosus type: unspecified (3) Hypertension Code(s): I10 - Essential (primary) hypertension Status: Chronic Qualifiers: Hypertension type: essential hypertension Qualified Code(s): I10 - Essential (primary) hypertension (4) Endocarditis of tricuspid valve Code(s): I36.8 - Other nonrheumatic tricuspid valve disorders Status: Acute <Slim Arrieta - Last Filed: 09/12/18 18:32>
[2018-09-07] MEDS: LORazepam 1 MG Tablet PO SCH (21:28)
[2018-09-07] MEDS: Melatonin 5 MG Tablet PO SCH (21:28)
[2018-09-08] MEDS: Aztreonam Inj 2 GM in Sodium Chloride 0.9% Inj 100 ML IV.SIG SCH ×4 (03:46→21:45)
[2018-09-08] MEDS: Morphine Sulfate Inj 2 MG/ML Vial IV.PUSH PRN ×3 (03:46→16:08)
[2018-09-08] MEDS: Levothyroxine 112 MCG Tablet PO SCH (05:57)
[2018-09-08] MEDS: Heparin - SQ 10,000 UNITS/ML Vial SQ SCH ×4 (05:58→21:45)
[2018-09-08 06:53] LABS: Carbon Dioxide 22.5 meq/L (21.0-32.0); Potassium 3.8 meq/L (3.5-5.1)
[2018-09-08] MEDS: Heparin Central Flush 100 UNIT/ML 5 ML Vial IV.FLUSH SCH (09:27)
[2018-09-08] MEDS: Lisinopril 5 MG Tablet PO SCH (09:27)
[2018-09-08] MEDS: Sodium Bicarbonate 650 MG Tablet PO SCH ×3 (09:27→17:39)
[2018-09-08] MEDS: predniSONE 20 MG Tablet PO SCH (09:28)
[2018-09-08] MEDS: amLODIPine 5 MG Tablet PO SCH (09:28)
[2018-09-08] MEDS: Morphine Sulfate 15 MG SR Tablet PO SCH ×2 (09:29→21:44)
[2018-09-08] MEDS: Spironolactone 25 MG Tablet PO SCH ×2 (09:31→17:37)
[2018-09-08] MEDS: Senna/Docusate Sodium 8.6/50 MG Tablet PO SCH ×2 (09:32→21:42)
[2018-09-08] MEDS: Vancomycin Inj 1,750 MG in Sodium Chlor 0.9% Inj 500 ML IV.SIG SCH (12:13)
--- NOTE | 2018-09-08 16:25 | P.PN ---
Subjective Interval history: Follow-up for endocarditis, status post pacemaker revision-patient seen and examined. Says she has her menses, has changed pad 12 times and is having "large blood clots". Discussed with RN, this has not been observed. Patient does not want to take heparin subcu. She complains of pelvic cramping. Left chest wall pain where AICD was changed unchanged. No shortness of breath. No other concerns.No fever. SB on tele Physical Exam Vital signs: Vital Signs 09/07/18 20:00 09/07/18 23:50 09/08/18 00:00 Temperature 98 F 98.5 F Pulse Rate 53 L 48 L 54 L Respiratory Rate 17 14 Blood Pressure 119/61 107/59 L Pulse Oximetry 98 99 09/08/18 00:02 09/08/18 03:52 09/08/18 04:00 Temperature 98.1 F Pulse Rate 52 L 54 L Respiratory Rate 18 14 Blood Pressure 102/52 L Pulse Oximetry 98 09/08/18 08:00 09/08/18 12:00 09/08/18 16:00 Temperature 98.7 F 98.6 F 98.2 F Pulse Rate 46 L 63 60 Respiratory Rate 20 18 18 Blood Pressure 119/70 127/60 110/63 Pulse Oximetry 100 97 97 Intake & Output 09/07/18 09/08/18 09/08/18 18:59 06:59 18:59 Intake Total 1197.5 / 1197.5 620 / 620 617.5 / 617.5 Balance 1197.5 / 1197.5 620 / 620 617.5 / 617.5 Weight 80.6 kg Intake: IV 717.5 / 717.5 200 / 200 617.5 / 617.5 Azactam Inj 2 GM In NS Inj 100 200 / 200 200 / 200 100 / 100 ML @ 100 mls/hr IV.SIG Q6H SHUKRI Rx#:[id number] Vancomycin Inj 1,750 MG In NS 517.5 / 517.5 517.5 / 517.5 Inj 500 ML @ 250 mls/hr IV.SIG Q24H SHUKRI Rx#:[id number] Oral 480 / 480 420 / 420 Other: # Voids 3 3 Date of Last Bowel Movement 09/05/18 09/07/18 Narrative: GENERAL: Well-nourished, well-developed patient in no apparent distress. SKIN: Warm and dry. Left chest wall with incision site intact. HEAD: Atraumatic. Normocephalic. EYES: Pupils equal and round. No scleral icterus. No injection or drainage. ENT: No nasal bleeding or discharge. Mucous membranes pink and moist. NECK: Trachea midline. No JVD. CARDIOVASCULAR: Regular rate and rhythm. RESPIRATORY: No accessory muscle use. Clear to auscultation. Breath sounds equal bilaterally. GASTROINTESTINAL: Abdomen soft, non-tender, nondistended. Hepatic and splenic margins not palpable. MUSCULOSKELETAL: Extremities without clubbing, cyanosis, or edema. No obvious deformities. NEUROLOGICAL: Awakes to voice, oriented x3. No obvious cranial nerve deficits. Motor grossly within normal limits. Limited range of motion left arm due to pacemaker insertion, wearing sling. Normal speech. PSYCH: cooperative. - Urinary Catheter Management Indwelling Urethral Catheter Cath placed during this visit: yes, but has since been removed by the nurse Reason for continuing: Decision to DC catheter Removal date: 08/07/18 Removal time: 18:00 Results - Labs CBC & Chem 7: 09/05/18 03:56 09/08/18 06:00 Laboratory Results - last 24 hr 09/08/18 06:00 Sodium 149 H Potassium 3.8 Chloride 120 H Carbon Dioxide 22.5 Anion Gap 7 BUN 20 H Creatinine 1.15 H Estimated GFR 52 L Random Glucose 83 Calcium 8.0 L Assessment and Plan - Assessment (1) Endocarditis of tricuspid valve Code(s): I36.8 - Other nonrheumatic tricuspid valve disorders Status: Acute (2) Brugada syndrome Code(s): I49.8 - Other specified cardiac arrhythmias Status: Resolved (3) Hypertension Code(s): I10 - Essential (primary) hypertension Status: Chronic (4) ICD (implantable cardioverter-defibrillator) malfunction Code(s): T82.118A - Breakdown (mechanical) of other cardiac electronic device, initial encounter Status: Acute (5) Medical non-compliance Code(s): Z91.19 - Patient's noncompliance with other medical treatment and regimen Status: Acute (6) SLE (systemic lupus erythematosus) Code(s): M32.9 - Systemic lupus erythematosus, unspecified Status: Chronic (7) Chronic pain Code(s): G89.29 - Other chronic pain Status: Chronic (8) Acute kidney injury superimposed on CKD Code(s): N17.9 - Acute kidney failure, unspecified; N18.9 - Chronic kidney disease, unspecified Status: Acute - Plan 42 years old female . Was admitted for acute hypoxic respiratory failure , intubated with encephalopathy and severe cardiogenic shock with lactic acidosis. 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 Extubated 08/05/2018. Underwent hemodialysis until 08/06 and needed transfusion of blood. Patient had her p.m. wires dislodged. Now is s/p pacemaker revision (08/29). Chronic pain Possible seizures -Continue with morphine slow release 30 mg at night and 15 mg during the day. DC IV Morphine -As needed Valium 10 mg p.o. 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 2D echo shows tricuspid valve endocarditis, ID following-antibiotics as below CVVH started 08/03 due to severe acidosis, now transition to HD Prior ICD pocket infection in December 2017 and February 2018. Recently replaced by Dr. Cervantes. Per device rep she did not follow-up device check Essential hypertension. - continue Amlodipine PM wires dislodged- 08/25 - PM interrogated -per TJ - [employer] rep- wires are all dislodged- occasionally capturing Cardiology consulted- Dr. Edinson Cervantes was consulted. -s/p pacemaker revision (08/29) Tricuspid valve endocarditis History of ICD pocket infection most recently with MRSA February 2018. She has undergone device removal on 2 prior occasions. Most recently was removed in February 2018 with wound VAC placement. Device replaced 06/27/18. She reported fever 102.7, however she is afebrile here. 2D echo showed tricuspid valve endocarditis while bld cx's are neg -Continue vancomycin, aztreonam per ID Yeast vaginitis- - s/p diflucan dose; likely 2/2 immunosupression 2/2 steroids Crohn's disease -Renal diet. Protonix PO -follow-up with [facility] gastroenterology in the end of August -continue PO steroids Menorrhagia, patient reports is a chronic problem. Hasn't followed up with gynecology in over a year. 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 Will check CBC in am Chronic kidney disease stage III Patient states she has not had renal biopsy. She has been followed by nephrology at [facility]. -Nephrology following; Currently patient has a right femoral Vas-Cath. -Continue Aldactone and sodium bicarb -creat stable. Hypokalemia -replace as needed Hypernatremia -enc. po fluids Systemic lupus erythematosus On chronic steroids -Tapered down from stress dose steroids to chronic baseline dosing Chronic anemia Thrombocytopenia -most recent h/h and plts stable, no clinical signs of bleeding Hypothyroidism -Continue Synthroid Insomnia continue melatonin Labile mood. per previous notes Patient refusing to be seen by psychiatry doctor. [place]'s dx likely. patient is noted on/off disrupting new AICD as noted with pauses, labs are normal , lytes are normal -continue to monitor PROPH: SCDs for DVT prophylaxis and heparin 5000 units subcu every 8 Protonix 40 mg daily for stress ulcer prophylaxis. Labs in am Code Status: Full code Discussed Condition With: RN, pt, CM Discharge Planning: DC after Abx completed Midline placement 08/17/18. This was removed and now has a PICC line. Anticipate antibiotics until 09/17. Not a candidate for DC home with IV abx as patient is not reliable and is disrupting IV lines, AICD (3) Hypertension Qualifiers: Hypertension type: essential hypertension Qualified Code(s): I10 - Essential (primary) hypertension (6) SLE (systemic lupus erythematosus) Qualifiers: Systemic lupus erythematosus type: unspecified (7) Chronic pain Qualifiers: Chronic pain type: other chronic pain Qualified Code(s): G89.29 - Other chronic pain
[2018-09-08] MEDS: LORazepam 1 MG Tablet PO SCH (21:41)
[2018-09-08] MEDS: Melatonin 5 MG Tablet PO SCH (21:42)
[2018-09-09] MEDS: Aztreonam Inj 2 GM in Sodium Chloride 0.9% Inj 100 ML IV.SIG SCH ×4 (05:00→21:23)
[2018-09-09] MEDS: Levothyroxine 112 MCG Tablet PO SCH (05:00)
[2018-09-09] MEDS: Heparin - SQ 10,000 UNITS/ML Vial SQ SCH ×3 (05:01→22:00)
[2018-09-09 05:27] LABS: Hematocrit 27.7 % (35.0-46.0); Hemoglobin 9.2 gm/dL (11.6-15.3); Mean Corpuscular HGB Conc 33.2 % (32.0-36.0); Mean Corpuscular Hemoglobin 31.3 pg (27.0-34.0); Mean Corpuscular Volume 94.3 fL (80.0-100.0); Mean Platelet Volume 7.2 fL (7.0-11.0); Platelet Count 188 th/mm3 (150-450); Red Blood Count 2.94 mil/mm3 (4.00-5.30); Red Cell Distribution Width 18.4 % (11.6-17.2); White Blood Count 6.4 th/mm3 (4.0-11.0)
[2018-09-09 05:54] LABS: Calcium 7.8 mg/dL (8.5-10.1); Carbon Dioxide 22.3 meq/L (21.0-32.0); Potassium 3.5 meq/L (3.5-5.1)
[2018-09-09] MEDS: Senna/Docusate Sodium 8.6/50 MG Tablet PO SCH ×2 (08:30→20:08)
[2018-09-09] MEDS: Lisinopril 5 MG Tablet PO SCH (08:30)
[2018-09-09] MEDS: Spironolactone 25 MG Tablet PO SCH ×2 (08:30→17:33)
[2018-09-09] MEDS: amLODIPine 5 MG Tablet PO SCH (08:31)
[2018-09-09] MEDS: Sodium Bicarbonate 650 MG Tablet PO SCH ×3 (08:31→17:32)
[2018-09-09] MEDS: Morphine Sulfate 15 MG SR Tablet PO SCH ×2 (08:31→20:09)
[2018-09-09] MEDS: predniSONE 20 MG Tablet PO SCH (08:31)
[2018-09-09] MEDS: Heparin Central Flush 100 UNIT/ML 5 ML Vial IV.FLUSH SCH (08:32)
--- NOTE | 2018-09-09 09:40 | P.PN ---
Subjective Interval history: Follow-up for endocarditis, status post pacemaker revision-patient seen and examined. Again, doesn't want heparin sq. Left chest wall pain, no sob. No fever.. No acute changes overnight. Physical Exam Vital signs: Vital Signs 09/08/18 12:00 09/08/18 16:00 09/08/18 20:00 Temperature 98.6 F 98.2 F 98.2 F Pulse Rate 63 55 L 71 Respiratory Rate 18 18 18 Blood Pressure 127/60 110/63 115/76 Pulse Oximetry 97 97 98 09/08/18 23:33 09/09/18 00:00 09/09/18 03:00 Temperature 98.1 F 97.5 F L Pulse Rate 69 54 L Respiratory Rate 18 18 18 Blood Pressure 121/57 L 111/65 Pulse Oximetry 97 99 09/09/18 08:00 Temperature 97.4 F L Pulse Rate 50 L Respiratory Rate 18 Blood Pressure 119/60 Pulse Oximetry 98 Intake & Output 09/08/18 09/09/18 09/09/18 19:59 06:59 18:59 Intake Total Balance Weight Intake: IV Azactam Inj 2 GM In NS Inj 100 ML @ 100 mls/hr IV.SIG Q6H SHUKRI Rx#:[id number] Vancomycin Inj 1,750 MG In NS Inj 500 ML @ 250 mls/hr IV.SIG Q24H SHUKRI Rx#:[id number] Oral Other: # Voids Date of Last Bowel Movement Narrative: GENERAL: Well-nourished, well-developed patient in no apparent distress. SKIN: Warm and dry. Left chest wall with incision site intact. HEAD: Atraumatic. Normocephalic. EYES: Pupils equal and round. No scleral icterus. No injection or drainage. ENT: No nasal bleeding or discharge. Mucous membranes pink and moist. NECK: Trachea midline. No JVD. CARDIOVASCULAR: Regular rate and rhythm. RESPIRATORY: No accessory muscle use. Clear to auscultation. Breath sounds equal bilaterally. GASTROINTESTINAL: Abdomen soft, non-tender, nondistended. Hepatic and splenic margins not palpable. MUSCULOSKELETAL: Extremities without clubbing, cyanosis, or edema. No obvious deformities. NEUROLOGICAL: Awakes to voice, oriented x3. No obvious cranial nerve deficits. Motor grossly within normal limits. Limited range of motion left arm due to pacemaker insertion, wearing sling. Normal speech. PSYCH: cooperative. - Urinary Catheter Management Indwelling Urethral Catheter Cath placed during this visit: yes, but has since been removed by the nurse Reason for continuing: Decision to DC catheter Removal date: 08/07/18 Removal time: 18:00 Results - Labs CBC & Chem 7: 09/09/18 05:00 09/09/18 05:00 Laboratory Results - last 24 hr 09/09/18 09/09/18 05:00 05:00 WBC 6.4 RBC 2.94 L Hgb 9.2 L Hct 27.7 L MCV 94.3 MCH 31.3 MCHC 33.2 RDW 18.4 H Plt Count 188 MPV 7.2 Sodium 149 H Potassium 3.5 Chloride 120 H Carbon Dioxide 22.3 Anion Gap 7 BUN 17 Creatinine 1.05 H Estimated GFR 58 L Random Glucose 102 Calcium 7.8 L Assessment and Plan - Assessment (1) Endocarditis of tricuspid valve Code(s): I36.8 - Other nonrheumatic tricuspid valve disorders Status: Acute (2) Brugada syndrome Code(s): I49.8 - Other specified cardiac arrhythmias Status: Resolved (3) Hypertension Code(s): I10 - Essential (primary) hypertension Status: Chronic (4) ICD (implantable cardioverter-defibrillator) malfunction Code(s): T82.118A - Breakdown (mechanical) of other cardiac electronic device, initial encounter Status: Acute (5) Medical non-compliance Code(s): Z91.19 - Patient's noncompliance with other medical treatment and regimen Status: Acute (6) SLE (systemic lupus erythematosus) Code(s): M32.9 - Systemic lupus erythematosus, unspecified Status: Chronic (7) Chronic pain Code(s): G89.29 - Other chronic pain Status: Chronic (8) Acute kidney injury superimposed on CKD Code(s): N17.9 - Acute kidney failure, unspecified; N18.9 - Chronic kidney disease, unspecified Status: Acute - Plan 42 years old female . Was admitted for acute hypoxic respiratory failure , intubated with encephalopathy and severe cardiogenic shock with lactic acidosis. 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 Extubated 08/05/2018. Underwent hemodialysis until 08/06 and needed transfusion of blood. Patient had her p.m. wires dislodged. Now is s/p pacemaker revision (08/29). Chronic pain Possible seizures -Continue with morphine slow release 30 mg at night and 15 mg during the day. DC IV Morphine -As needed Valium 10 mg p.o. 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 2D echo shows tricuspid valve endocarditis, ID following-antibiotics as below CVVH started 08/03 due to severe acidosis, now transition to HD Prior ICD pocket infection in December 2017 and February 2018. Recently replaced by Dr. Cervantes. Per device rep she did not follow-up device check Essential hypertension. - continue Amlodipine PM wires dislodged- 08/25 - PM interrogated -per TJ - [employer] rep- wires are all dislodged- occasionally capturing Cardiology consulted- Dr. Edinson Cervantes was consulted. -s/p pacemaker revision (08/29) Tricuspid valve endocarditis History of ICD pocket infection most recently with MRSA February 2018. She has undergone device removal on 2 prior occasions. Most recently was removed in February 2018 with wound VAC placement. Device replaced 06/27/18. She reported fever 102.7, however she is afebrile here. 2D echo showed tricuspid valve endocarditis while bld cx's are neg -Continue vancomycin, aztreonam per ID Yeast vaginitis- - s/p diflucan dose; likely 2/2 immunosupression 2/2 steroids Crohn's disease -Renal diet. Protonix PO -follow-up with [facility] gastroenterology in the end of August -continue PO steroids Menorrhagia, patient reports is a chronic problem. Hasn't followed up with gynecology in over a year. 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 HH stable, 9.2/27.7 Chronic kidney disease stage III Patient states she has not had renal biopsy. She has been followed by nephrology at [facility]. -Nephrology following; Currently patient has a right femoral Vas-Cath. -Continue Aldactone and sodium bicarb -creat stable. Hypokalemia -replace as needed Hypernatremia -enc. po fluids -Na remains 149, will give D5W at 84/hr x 1 liter Systemic lupus erythematosus On chronic steroids -Tapered down from stress dose steroids to chronic baseline dosing Chronic anemia Thrombocytopenia -most recent h/h and plts stable, no clinical signs of bleeding Hypothyroidism -Continue Synthroid Insomnia continue melatonin Labile mood. per previous notes Patient refusing to be seen by psychiatry doctor. [place]'s dx likely. patient is noted on/off disrupting new AICD as noted with pauses, labs are normal , lytes are normal -continue to monitor PROPH: SCDs for DVT prophylaxis and heparin 5000 units subcu every 8 Protonix 40 mg daily for stress ulcer prophylaxis. Labs reviewed, repeat BMP in am Code Status: Full code Discussed Condition With: RN, pt Discharge Planning: DC after Abx completed Midline placement 08/17/18. This was removed and now has a PICC line. Anticipate antibiotics until 09/17. Not a candidate for DC home with IV abx as patient is not reliable and is disrupting IV lines, AICD (3) Hypertension Qualifiers: Hypertension type: essential hypertension Qualified Code(s): I10 - Essential (primary) hypertension (6) SLE (systemic lupus erythematosus) Qualifiers: Systemic lupus erythematosus type: unspecified (7) Chronic pain Qualifiers: Chronic pain type: other chronic pain Qualified Code(s): G89.29 - Other chronic pain
[2018-09-09] MEDS ORDERED: Potassium Chloride 25 MEQ Effervescent Tablet PO ONE (10:00)
[2018-09-09] MEDS ORDERED: Dextrose 5% in Water Inj 1,000 ML IV.CONT SCH (10:00)
[2018-09-09] MEDS ORDERED: Pharmacy Ordered Lab Info OTHER ONE (11:45)
[2018-09-09] MEDS: Vancomycin Inj 1,750 MG in Sodium Chlor 0.9% Inj 500 ML IV.SIG SCH (12:15)
[2018-09-09] MEDS: Melatonin 5 MG Tablet PO SCH (20:08)
[2018-09-09] MEDS: LORazepam 1 MG Tablet PO SCH (20:09)
[2018-09-10] MEDS: Aztreonam Inj 2 GM in Sodium Chloride 0.9% Inj 100 ML IV.SIG SCH ×4 (03:27→21:08)
[2018-09-10] MEDS: Levothyroxine 112 MCG Tablet PO SCH (05:55)
[2018-09-10] MEDS: Heparin - SQ 10,000 UNITS/ML Vial SQ SCH ×3 (05:56→21:07)
[2018-09-10 06:51] LABS: Calcium 8.1 mg/dL (8.5-10.1); Carbon Dioxide 22.7 meq/L (21.0-32.0); Potassium 3.6 meq/L (3.5-5.1)
[2018-09-10] MEDS: Sodium Bicarbonate 650 MG Tablet PO SCH ×3 (08:51→19:16)
[2018-09-10] MEDS: amLODIPine 5 MG Tablet PO SCH (08:52)
[2018-09-10] MEDS: Morphine Sulfate 15 MG SR Tablet PO SCH ×2 (08:52→21:07)
[2018-09-10] MEDS: Lisinopril 5 MG Tablet PO SCH (08:52)
[2018-09-10] MEDS: predniSONE 20 MG Tablet PO SCH (08:52)
[2018-09-10] MEDS: Heparin Central Flush 100 UNIT/ML 5 ML Vial IV.FLUSH SCH (08:53)
[2018-09-10] MEDS: Senna/Docusate Sodium 8.6/50 MG Tablet PO SCH ×2 (08:53→21:08)
[2018-09-10] MEDS: Spironolactone 25 MG Tablet PO SCH ×2 (09:02→19:15)
--- NOTE | 2018-09-10 11:04 | P.PN ---
Subjective Interval history: Follow-up for endocarditis, status post pacemaker revision-patient seen and examined. Chronic pain. No shortness of breath. No acute changes overnight.No fever Physical Exam Vital signs: Vital Signs 09/09/18 12:00 09/09/18 15:00 09/09/18 16:00 Temperature 98.4 F 97.4 F L Pulse Rate 49 L 55 L 74 Respiratory Rate 18 18 Blood Pressure 131/59 L 115/46 L Pulse Oximetry 100 97 09/09/18 20:00 09/09/18 20:15 09/09/18 22:04 Temperature 98.2 F Pulse Rate 63 60 Respiratory Rate 19 18 Blood Pressure 119/70 Pulse Oximetry 99 09/10/18 00:00 09/10/18 04:00 09/10/18 08:00 Temperature 98.4 F 97.5 F L 98.3 F Pulse Rate 59 L 77 65 Respiratory Rate 18 20 18 Blood Pressure 107/55 L 116/67 100/54 L Pulse Oximetry 98 98 98 09/10/18 09:46 Temperature Pulse Rate Respiratory Rate 18 Blood Pressure Pulse Oximetry Intake & Output 09/09/18 09/10/18 09/10/18 18:59 06:59 18:59 Intake Total 1197.5 / 1197.5 580 / 580 1000 / 1000 Balance 1197.5 / 1197.5 580 / 580 1000 / 1000 Intake: IV 717.5 / 717.5 200 / 200 1000 / 1000 D5W Inj 1,000 ML @ 84 mls/hr IV 1000 / 1000 .CONT .[id number] SHUKRI Rx#:[id number] Azactam Inj 2 GM In NS Inj 100 200 / 200 200 / 200 ML @ 100 mls/hr IV.SIG Q6H SHUKRI Rx#:[id number] Vancomycin Inj 1,750 MG In NS 517.5 / 517.5 Inj 500 ML @ 250 mls/hr IV.SIG Q24H SHUKRI Rx#:[id number] Oral 480 / 480 380 / 380 Other: # Voids 3 2 Narrative: GENERAL: Well-nourished, well-developed patient in no apparent distress. SKIN: Warm and dry. Left chest wall with incision site intact. HEAD: Atraumatic. Normocephalic. EYES: Pupils equal and round. No scleral icterus. No injection or drainage. ENT: No nasal bleeding or discharge. Mucous membranes pink and moist. NECK: Trachea midline. No JVD. CARDIOVASCULAR: Regular rate and rhythm. RESPIRATORY: No accessory muscle use. Clear to auscultation. Breath sounds equal bilaterally. GASTROINTESTINAL: Abdomen soft, non-tender, nondistended. Hepatic and splenic margins not palpable. MUSCULOSKELETAL: Extremities without clubbing, cyanosis, or edema. No obvious deformities. NEUROLOGICAL: Awakes to voice, oriented x3. No obvious cranial nerve deficits. Motor grossly within normal limits. Limited range of motion left arm due to pacemaker insertion, wearing sling. Normal speech. PSYCH: cooperative. - Urinary Catheter Management Indwelling Urethral Catheter Cath placed during this visit: yes, but has since been removed by the nurse Reason for continuing: Decision to DC catheter Removal date: 08/07/18 Removal time: 18:00 Results - Labs CBC & Chem 7: 09/09/18 05:00 09/10/18 05:50 Laboratory Results - last 24 hr 09/09/18 09/10/18 12:20 05:50 Sodium 145 Potassium 3.6 Chloride 117 H Carbon Dioxide 22.7 Anion Gap 5 BUN 17 Creatinine 0.98 Estimated GFR 63 L Random Glucose 89 Calcium 8.1 L Vancomycin Trough 12.6 H Assessment and Plan - Assessment (1) Endocarditis of tricuspid valve Code(s): I36.8 - Other nonrheumatic tricuspid valve disorders Status: Acute (2) Brugada syndrome Code(s): I49.8 - Other specified cardiac arrhythmias Status: Resolved (3) Hypertension Code(s): I10 - Essential (primary) hypertension Status: Chronic (4) ICD (implantable cardioverter-defibrillator) malfunction Code(s): T82.118A - Breakdown (mechanical) of other cardiac electronic device, initial encounter Status: Acute (5) Medical non-compliance Code(s): Z91.19 - Patient's noncompliance with other medical treatment and regimen Status: Acute (6) SLE (systemic lupus erythematosus) Code(s): M32.9 - Systemic lupus erythematosus, unspecified Status: Chronic (7) Chronic pain Code(s): G89.29 - Other chronic pain Status: Chronic (8) Acute kidney injury superimposed on CKD Code(s): N17.9 - Acute kidney failure, unspecified; N18.9 - Chronic kidney disease, unspecified Status: Acute - Plan 42 years old female . Was admitted for acute hypoxic respiratory failure , intubated with encephalopathy and severe cardiogenic shock with lactic acidosis. 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 Extubated 08/05/2018. Underwent hemodialysis until 08/06 and needed transfusion of blood. Patient had her p.m. wires dislodged. Now is s/p pacemaker revision (08/29). Chronic pain Possible seizures -Continue with morphine slow release 30 mg at night and 15 mg during the day. DC IV Morphine -As needed Valium 10 mg p.o. 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 2D echo shows tricuspid valve endocarditis, ID following-antibiotics as below CVVH started 08/03 due to severe acidosis, now transition to HD Prior ICD pocket infection in December 2017 and February 2018. Recently replaced by Dr. Cervantes. Per device rep she did not follow-up device check Essential hypertension. - continue Amlodipine PM wires dislodged- 08/25 - PM interrogated -per TJ - [employer] rep- wires are all dislodged- occasionally capturing Cardiology consulted- Dr. Edinson Cervantes was consulted. -s/p pacemaker revision (08/29) Tricuspid valve endocarditis History of ICD pocket infection most recently with MRSA February 2018. She has undergone device removal on 2 prior occasions. Most recently was removed in February 2018 with wound VAC placement. Device replaced 06/27/18. She reported fever 102.7, however she is afebrile here. 2D echo showed tricuspid valve endocarditis while bld cx's are neg -Continue vancomycin, aztreonam per ID Yeast vaginitis- - s/p diflucan dose; likely 2/2 immunosupression 2/2 steroids Crohn's disease -Renal diet. Protonix PO -follow-up with [facility] gastroenterology in the end of August -continue PO steroids Menorrhagia, patient reports is a chronic problem. Hasn't followed up with gynecology in over a year. 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 HH stable, 9.2.7 Chronic kidney disease stage III Patient states she has not had renal biopsy. She has been followed by nephrology at [facility]. -Nephrology following; Currently patient has a right femoral Vas-Cath. -Continue Aldactone and sodium bicarb -creat stable. Hypokalemia -replace as needed Hypernatremia -enc. po fluids -given D5W at 84/hr x 1 liter -Na 145 today. Systemic lupus erythematosus On chronic steroids -Tapered down from stress dose steroids to chronic baseline dosing Chronic anemia Thrombocytopenia -most recent h/h and plts stable, no clinical signs of bleeding Hypothyroidism -Continue Synthroid Insomnia continue melatonin Labile mood. per previous notes Patient refusing to be seen by psychiatry doctor. [place]'s dx likely. patient is noted on/off disrupting new AICD as noted with pauses, labs are normal , lytes are normal -continue to monitor PROPH: SCDs for DVT prophylaxis and heparin 5000 units subcu every 8 Protonix 40 mg daily for stress ulcer prophylaxis. Labs reviewed, stable. Code Status: Full code Discussed Condition With: RN, pt, CM Discharge Planning: DC after Abx completed Midline placement 08/17/18. This was removed and now has a PICC line. Anticipate antibiotics until 09/17. Not a candidate for DC home with IV abx as patient is not reliable and is disrupting IV lines, AICD (3) Hypertension Qualifiers: Hypertension type: essential hypertension Qualified Code(s): I10 - Essential (primary) hypertension (6) SLE (systemic lupus erythematosus) Qualifiers: Systemic lupus erythematosus type: unspecified (7) Chronic pain Qualifiers: Chronic pain type: other chronic pain Qualified Code(s): G89.29 - Other chronic pain
[2018-09-10] MEDS: Vancomycin Inj 1,750 MG in Sodium Chlor 0.9% Inj 500 ML IV.SIG SCH (13:48)
[2018-09-10] MEDS: LORazepam 1 MG Tablet PO SCH (21:06)
[2018-09-10] MEDS: Melatonin 5 MG Tablet PO SCH (21:07)
[2018-09-11] MEDS: Heparin - SQ 10,000 UNITS/ML Vial SQ SCH ×3 (05:28→21:30)
[2018-09-11] MEDS: Aztreonam Inj 2 GM in Sodium Chloride 0.9% Inj 100 ML IV.SIG SCH ×4 (05:28→21:30)
[2018-09-11] MEDS: Levothyroxine 112 MCG Tablet PO SCH (05:28)
[2018-09-11] MEDS: predniSONE 20 MG Tablet PO SCH (08:51)
[2018-09-11] MEDS: amLODIPine 5 MG Tablet PO SCH (08:52)
[2018-09-11] MEDS: Lisinopril 5 MG Tablet PO SCH (08:52)
[2018-09-11] MEDS: Morphine Sulfate 15 MG SR Tablet PO SCH ×2 (08:53→20:02)
[2018-09-11] MEDS: Sodium Bicarbonate 650 MG Tablet PO SCH ×3 (08:56→17:46)
[2018-09-11] MEDS: Spironolactone 25 MG Tablet PO SCH ×2 (08:58→17:46)
[2018-09-11] MEDS: Heparin Central Flush 100 UNIT/ML 5 ML Vial IV.FLUSH SCH (10:35)
[2018-09-11] MEDS: Senna/Docusate Sodium 8.6/50 MG Tablet PO SCH ×3 (10:35→20:06)
[2018-09-11] MEDS: Vancomycin Inj 1,750 MG in Sodium Chlor 0.9% Inj 500 ML IV.SIG SCH (11:57)
--- NOTE | 2018-09-11 14:28 | P.PN ---
Subjective Interval history: Follow-up endocarditis/revision of pacemaker September 11, 2018-patient seen and examined, no acute event overnight. Currently afebrile Physical Exam Vital signs: Vital Signs 09/10/18 16:00 09/10/18 20:00 09/11/18 00:00 Temperature 98.5 F 98.3 F 98.3 F Pulse Rate 60 97 H 63 Respiratory Rate 18 20 17 Blood Pressure 105/55 L 139/81 103/56 L Pulse Oximetry 99 99 96 09/11/18 04:00 09/11/18 08:00 09/11/18 12:00 Temperature 98.3 F 98.1 F 98.0 F Pulse Rate 55 L 48 L 129 H Respiratory Rate 19 18 18 Blood Pressure 115/53 L 111/59 L 101/56 L Pulse Oximetry 97 98 99 Intake & Output 09/10/18 09/11/18 09/11/18 18:59 06:59 18:59 Intake Total 2617.5 / 2617.5 642 / 642 100 / 100 Output Total 925 / 925 Balance 1692.5 / 1692.5 642 / 642 100 / 100 Weight 81.21 kg 82 kg Intake: IV 1717.5 / 1717.5 200 / 200 100 / 100 D5W Inj 1,000 ML @ 84 mls/hr IV 1000 / 1000 .CONT .[id number] SHUKRI Rx#:[id number] Azactam Inj 2 GM In NS Inj 100 200 / 200 200 / 200 100 / 100 ML @ 100 mls/hr IV.SIG Q6H SHUKRI Rx#:[id number] Vancomycin Inj 1,750 MG In NS 517.5 / 517.5 Inj 500 ML @ 250 mls/hr IV.SIG Q24H SHUKRI Rx#:[id number] Oral 900 / 900 442 / 442 Output: Urine 925 / 925 Other: # Voids 8 # Bowel Movements 1 Narrative: GENERAL: Well-nourished, well-developed patient in no apparent distress. SKIN: Warm and dry. Left chest wall with incision site intact. HEAD: Atraumatic. Normocephalic. EYES: Pupils equal and round. No scleral icterus. No injection or drainage. ENT: No nasal bleeding or discharge. Mucous membranes pink and moist. NECK: Trachea midline. No JVD. CARDIOVASCULAR: Regular rate and rhythm. RESPIRATORY: No accessory muscle use. Clear to auscultation. Breath sounds equal bilaterally. GASTROINTESTINAL: Abdomen soft, non-tender, nondistended. Hepatic and splenic margins not palpable. MUSCULOSKELETAL: Extremities without clubbing, cyanosis, or edema. No obvious deformities. NEUROLOGICAL: Awakes to voice, oriented x3. No obvious cranial nerve deficits. Motor grossly within normal limits. Limited range of motion left arm due to pacemaker insertion, wearing sling. Normal speech. PSYCH: cooperative. - Urinary Catheter Management Indwelling Urethral Catheter Cath placed during this visit: yes, but has since been removed by the nurse Reason for continuing: Decision to DC catheter Removal date: 08/07/18 Removal time: 18:00 Results - Labs CBC & Chem 7: 09/09/18 05:00 09/11/18 05:37 Laboratory Results - last 24 hr 09/11/18 05:37 Creatinine 1.07 H Estimated GFR 57 L Assessment and Plan - Assessment (1) Endocarditis of tricuspid valve Code(s): I36.8 - Other nonrheumatic tricuspid valve disorders Status: Acute (2) Brugada syndrome Code(s): I49.8 - Other specified cardiac arrhythmias Status: Resolved (3) Hypertension Code(s): I10 - Essential (primary) hypertension Status: Chronic (4) ICD (implantable cardioverter-defibrillator) malfunction Code(s): T82.118A - Breakdown (mechanical) of other cardiac electronic device, initial encounter Status: Acute (5) Medical non-compliance Code(s): Z91.19 - Patient's noncompliance with other medical treatment and regimen Status: Acute (6) SLE (systemic lupus erythematosus) Code(s): M32.9 - Systemic lupus erythematosus, unspecified Status: Chronic (7) Chronic pain Code(s): G89.29 - Other chronic pain Status: Chronic (8) Acute kidney injury superimposed on CKD Code(s): N17.9 - Acute kidney failure, unspecified; N18.9 - Chronic kidney disease, unspecified Status: Acute - Plan 42-year-old female with Chronic pain Possible seizures -Continue with morphine slow release 30 mg at night and 15 mg during the day. DC IV Morphine -As needed Valium 10 mg p.o. every 8 hours- 5 mg po q8 prn AICD malfunction/probable dislodged pacemaker lead, status post lead extraction and placement of new leads 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 2D echo shows tricuspid valve endocarditis, ID following-antibiotics as below CVVH started 08/03 due to severe acidosis, now transition to HD Prior ICD pocket infection in December 2017 and February 2018. Recently replaced by Dr. Cervantes. Per device rep she did not follow-up device check Essential hypertension. - continue Amlodipine PM wires dislodged- 08/25 - PM interrogated -per TJ - [employer] rep- wires are all dislodged- occasionally capturing Cardiology consulted- Dr. 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 She has undergone device removal on 2 prior occasions. Most recently was removed in February 2018 with wound VAC placement. Device replaced 06/27/18. She reported fever 102.7, however she is afebrile here. 2D echo showed tricuspid valve endocarditis while bld cx's are neg -Continue vancomycin, aztreonam per ID Yeast vaginitis- - s/p diflucan dose; likely 2/2 immunosupression 2/2 steroids Crohn's disease -Renal diet. Protonix PO -follow-up with [facility] gastroenterology in the end of August -continue PO steroids Menorrhagia, patient reports is a chronic problem. Hasn't followed up with gynecology in over a year. 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 HH stable, 9.2/27.7 Chronic kidney disease stage III -Nephrology following; Currently patient has a right femoral Vas-Cath. -Continue Aldactone and sodium bicarb Hypokalemia -replace as needed Hypernatremia -Improved Systemic lupus erythematosus On chronic steroids -Tapered down from stress dose steroids to chronic baseline dosing Chronic anemia Thrombocytopenia -most recent h/h and plts stable, no clinical signs of bleeding Hypothyroidism -Continue Synthroid Insomnia continue melatonin Labile mood. per previous notes Patient refusing to be seen by psychiatry doctor. [place]'s dx likely. patient is noted on/off disrupting new AICD as noted with pauses, labs are normal , lytes are normal -continue to monitor PROPH: SCDs for DVT prophylaxis and heparin 5000 units subcu every 8 Protonix 40 mg daily for stress ulcer prophylaxis. (3) Hypertension Qualifiers: Hypertension type: essential hypertension Qualified Code(s): I10 - Essential (primary) hypertension (6) SLE (systemic lupus erythematosus) Qualifiers: Systemic lupus erythematosus type: unspecified (7) Chronic pain Qualifiers: Chronic pain type: other chronic pain Qualified Code(s): G89.29 - Other chronic pain
[2018-09-11] MEDS: LORazepam 1 MG Tablet PO SCH (20:01)
[2018-09-11] MEDS: Melatonin 5 MG Tablet PO SCH (20:01)
[2018-09-12] MEDS: Aztreonam Inj 2 GM in Sodium Chloride 0.9% Inj 100 ML IV.SIG SCH ×4 (03:31→21:46)
[2018-09-12] MEDS: Heparin - SQ 10,000 UNITS/ML Vial SQ SCH ×3 (05:12→21:46)
[2018-09-12] MEDS: Levothyroxine 112 MCG Tablet PO SCH (05:12)
[2018-09-12] MEDS: Lisinopril 5 MG Tablet PO SCH (10:27)
[2018-09-12] MEDS: amLODIPine 5 MG Tablet PO SCH (10:27)
[2018-09-12] MEDS: Sodium Bicarbonate 650 MG Tablet PO SCH ×3 (10:27→17:54)
[2018-09-12] MEDS: predniSONE 20 MG Tablet PO SCH (10:27)
[2018-09-12] MEDS: Spironolactone 25 MG Tablet PO SCH ×2 (10:28→17:54)
[2018-09-12] MEDS: Heparin Central Flush 100 UNIT/ML 5 ML Vial IV.FLUSH SCH (10:28)
[2018-09-12] MEDS: Morphine Sulfate 15 MG SR Tablet PO SCH ×2 (10:29→21:45)
--- NOTE | 2018-09-12 10:36 | P.PN ---
Subjective Interval history: Follow-up endocarditis/revision of pacemaker September 11, 2018-patient seen and examined, no acute event overnight. Currently afebrile September 12, 2018-patient seen and examined, she was resting. Afebrile Physical Exam Vital signs: Vital Signs 09/11/18 12:00 09/11/18 16:00 09/11/18 20:00 Temperature 98.0 F 98.0 F 98.5 F Pulse Rate 129 H 81 77 Respiratory Rate 18 18 17 Blood Pressure 101/56 L 116/79 100/55 L Pulse Oximetry 99 98 98 09/12/18 00:00 09/12/18 04:00 09/12/18 08:00 Temperature 98.7 F 98.3 F 98.1 F Pulse Rate 74 65 64 Respiratory Rate 14 14 20 Blood Pressure 110/67 95/54 L 105/51 L Pulse Oximetry 97 97 97 Intake & Output 09/11/18 09/12/18 09/12/18 18:59 06:59 18:59 Intake Total 717.5 / 717.5 660 / 660 Balance 717.5 / 717.5 660 / 660 Weight 86.1 kg Intake: IV 717.5 / 717.5 200 / 200 Azactam Inj 2 GM In NS Inj 100 200 / 200 200 / 200 ML @ 100 mls/hr IV.SIG Q6H SHUKRI Rx#:[id number] Vancomycin Inj 1,750 MG In NS 517.5 / 517.5 Inj 500 ML @ 250 mls/hr IV.SIG Q24H SHUKRI Rx#:[id number] Oral 460 / 460 Other: # Voids 15 3 Date of Last Bowel Movement 09/07/18 # Bowel Movements 2 Narrative: GENERAL: Well-nourished, well-developed patient in no apparent distress. SKIN: Warm and dry. Left chest wall with incision site intact. HEAD: Atraumatic. Normocephalic. EYES: Pupils equal and round. No scleral icterus. No injection or drainage. ENT: No nasal bleeding or discharge. Mucous membranes pink and moist. NECK: Trachea midline. No JVD. CARDIOVASCULAR: Regular rate and rhythm. RESPIRATORY: No accessory muscle use. Clear to auscultation. Breath sounds equal bilaterally. GASTROINTESTINAL: Abdomen soft, non-tender, nondistended. Hepatic and splenic margins not palpable. MUSCULOSKELETAL: Extremities without clubbing, cyanosis, or edema. No obvious deformities. NEUROLOGICAL: Awakes to voice, oriented x3. No obvious cranial nerve deficits. Motor grossly within normal limits. Limited range of motion left arm due to pacemaker insertion, wearing sling. Normal speech. PSYCH: cooperative. - Urinary Catheter Management Indwelling Urethral Catheter Cath placed during this visit: yes, but has since been removed by the nurse Reason for continuing: Decision to DC catheter Removal date: 08/07/18 Removal time: 18:00 Results - Labs CBC & Chem 7: 09/09/18 05:00 09/13/18 06:20 Assessment and Plan - Assessment (1) Endocarditis of tricuspid valve Code(s): I36.8 - Other nonrheumatic tricuspid valve disorders Status: Acute (2) Brugada syndrome Code(s): I49.8 - Other specified cardiac arrhythmias Status: Resolved (3) Hypertension Code(s): I10 - Essential (primary) hypertension Status: Chronic (4) ICD (implantable cardioverter-defibrillator) malfunction Code(s): T82.118A - Breakdown (mechanical) of other cardiac electronic device, initial encounter Status: Acute (5) Medical non-compliance Code(s): Z91.19 - Patient's noncompliance with other medical treatment and regimen Status: Acute (6) SLE (systemic lupus erythematosus) Code(s): M32.9 - Systemic lupus erythematosus, unspecified Status: Chronic (7) Chronic pain Code(s): G89.29 - Other chronic pain Status: Chronic (8) Acute kidney injury superimposed on CKD Code(s): N17.9 - Acute kidney failure, unspecified; N18.9 - Chronic kidney disease, unspecified Status: Acute - Plan 42-year-old female with Chronic pain Possible seizures -Continue with morphine slow release 30 mg at night and 15 mg during the day. DC IV Morphine -As needed Valium 10 mg p.o. every 8 hours- 5 mg po q8 prn AICD malfunction/probable dislodged pacemaker lead, status post lead extraction and placement of new leads 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 2D echo shows tricuspid valve endocarditis, ID following-antibiotics as below CVVH started 08/03 due to severe acidosis, now transition to HD Prior ICD pocket infection in December 2017 and February 2018. Recently replaced by Dr. Cervantes. Per device rep she did not follow-up device check Essential hypertension. - continue Amlodipine PM wires dislodged- 08/25 - PM interrogated -per TJ - [employer] rep- wires are all dislodged- occasionally capturing Cardiology consulted- Dr. 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 She has undergone device removal on 2 prior occasions. Most recently was removed in February 2018 with wound VAC placement. Device replaced 06/27/18. She reported fever 102.7, however she is afebrile here. 2D echo showed tricuspid valve endocarditis while bld cx's are neg -Continue vancomycin, aztreonam per ID Yeast vaginitis- - s/p diflucan dose; likely 2/2 immunosupression 2/2 steroids Crohn's disease -Renal diet. Protonix PO -follow-up with [facility] gastroenterology in the end of August -continue PO steroids Menorrhagia, patient reports is a chronic problem. Hasn't followed up with gynecology in over a year. 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 HH stable, 9.2/27.7 Chronic kidney disease stage III -Nephrology following; Currently patient has a right femoral Vas-Cath. -Continue Aldactone and sodium bicarb Hypokalemia -replace as needed Hypernatremia -Improved Systemic lupus erythematosus On chronic steroids -Tapered down from stress dose steroids to chronic baseline dosing Chronic anemia Thrombocytopenia -most recent h/h and plts stable, no clinical signs of bleeding Hypothyroidism -Continue Synthroid Insomnia continue melatonin Labile mood. per previous notes Patient refusing to be seen by psychiatry doctor. [place]'s dx likely. patient is noted on/off disrupting new AICD as noted with pauses, labs are normal , lytes are normal -continue to monitor PROPH: SCDs for DVT prophylaxis and heparin 5000 units subcu every 8 Protonix 40 mg daily for stress ulcer prophylaxis. (3) Hypertension Qualifiers: Hypertension type: essential hypertension Qualified Code(s): I10 - Essential (primary) hypertension (6) SLE (systemic lupus erythematosus) Qualifiers: Systemic lupus erythematosus type: unspecified (7) Chronic pain Qualifiers: Chronic pain type: other chronic pain Qualified Code(s): G89.29 - Other chronic pain
[2018-09-12] MEDS: Senna/Docusate Sodium 8.6/50 MG Tablet PO SCH ×2 (12:34→21:44)
[2018-09-12] MEDS: Vancomycin Inj 1,750 MG in Sodium Chlor 0.9% Inj 500 ML IV.SIG SCH (12:40)
[2018-09-12] MEDS: LORazepam 1 MG Tablet PO SCH (21:45)
[2018-09-12] MEDS: Melatonin 5 MG Tablet PO SCH (21:45)
[2018-09-13] MEDS: Heparin - SQ 10,000 UNITS/ML Vial SQ SCH ×3 (05:14→21:32)
[2018-09-13] MEDS: Aztreonam Inj 2 GM in Sodium Chloride 0.9% Inj 100 ML IV.SIG SCH ×4 (05:14→21:33)
[2018-09-13] MEDS: Levothyroxine 112 MCG Tablet PO SCH (05:15)
[2018-09-13] MEDS: Heparin Central Flush 100 UNIT/ML 5 ML Vial IV.FLUSH SCH (09:47)
[2018-09-13] MEDS: predniSONE 20 MG Tablet PO SCH (09:48)
[2018-09-13] MEDS: Lisinopril 5 MG Tablet PO SCH (09:48)
[2018-09-13] MEDS: Sodium Bicarbonate 650 MG Tablet PO SCH ×3 (09:48→17:49)
[2018-09-13] MEDS: Senna/Docusate Sodium 8.6/50 MG Tablet PO SCH ×2 (09:48→21:33)
[2018-09-13] MEDS: Morphine Sulfate 15 MG SR Tablet PO SCH ×2 (09:48→21:31)
[2018-09-13] MEDS: amLODIPine 5 MG Tablet PO SCH (09:49)
[2018-09-13] MEDS: Spironolactone 25 MG Tablet PO SCH ×2 (09:59→17:49)
--- NOTE | 2018-09-13 11:06 | P.PN ---
Subjective Interval history: Follow-up endocarditis/revision of pacemaker September 11, 2018-patient seen and examined, no acute event overnight. Currently afebrile September 12, 2018-patient seen and examined, she was resting. Afebrile September 13, 2018-patient seen and examined, no acute event overnight, vital stable. Denies any shortness of breath or chest pain. Physical Exam Vital signs: Vital Signs 09/12/18 12:00 09/12/18 16:00 09/12/18 20:00 Temperature 98.6 F 98.8 F 99.4 F Pulse Rate 68 48 L 110 H Respiratory Rate 20 20 16 Blood Pressure 104/50 L 107/50 L 107/52 L Pulse Oximetry 98 99 98 09/12/18 23:53 09/13/18 00:00 09/13/18 00:38 Temperature 98.1 F Pulse Rate 75 79 Respiratory Rate 16 17 Blood Pressure 108/49 L Pulse Oximetry 97 09/13/18 04:00 09/13/18 08:00 Temperature 98.3 F 98.3 F Pulse Rate 67 78 Respiratory Rate 16 18 Blood Pressure 104/58 L 93/58 L Pulse Oximetry 97 98 Intake & Output 09/12/18 09/13/18 09/13/18 18:59 06:59 18:59 Intake Total 1557.5 / 1557.5 440 / 440 Balance 1557.5 / 1557.5 440 / 440 Weight 76.6 kg Intake: IV 717.5 / 717.5 200 / 200 Azactam Inj 2 GM In NS Inj 100 200 / 200 200 / 200 ML @ 100 mls/hr IV.SIG Q6H SHUKRI Rx#:[id number] Vancomycin Inj 1,750 MG In NS 517.5 / 517.5 Inj 500 ML @ 250 mls/hr IV.SIG Q24H SHUKRI Rx#:[id number] Oral 840 / 840 240 / 240 Other: # Voids 6 8 Date of Last Bowel Movement 09/12/18 # Bowel Movements 3 1 Narrative: GENERAL: Well-nourished, well-developed patient in no apparent distress. SKIN: Warm and dry. Left chest wall with incision site intact. HEAD: Atraumatic. Normocephalic. EYES: Pupils equal and round. No scleral icterus. No injection or drainage. ENT: No nasal bleeding or discharge. Mucous membranes pink and moist. NECK: Trachea midline. No JVD. CARDIOVASCULAR: Regular rate and rhythm. RESPIRATORY: No accessory muscle use. Clear to auscultation. Breath sounds equal bilaterally. GASTROINTESTINAL: Abdomen soft, non-tender, nondistended. Hepatic and splenic margins not palpable. MUSCULOSKELETAL: Extremities without clubbing, cyanosis, or edema. No obvious deformities. NEUROLOGICAL: Awakes to voice, oriented x3. No obvious cranial nerve deficits. Motor grossly within normal limits. Limited range of motion left arm due to pacemaker insertion, wearing sling. Normal speech. PSYCH: cooperative. - Urinary Catheter Management Indwelling Urethral Catheter Cath placed during this visit: yes, but has since been removed by the nurse Reason for continuing: Decision to DC catheter Removal date: 08/07/18 Removal time: 18:00 Results - Labs CBC & Chem 7: 09/09/18 05:00 09/13/18 06:20 Laboratory Results - last 24 hr 09/13/18 06:20 Creatinine 1.15 H Estimated GFR 52 L Assessment and Plan - Assessment (1) Endocarditis of tricuspid valve Code(s): I36.8 - Other nonrheumatic tricuspid valve disorders Status: Acute (2) Brugada syndrome Code(s): I49.8 - Other specified cardiac arrhythmias Status: Resolved (3) Hypertension Code(s): I10 - Essential (primary) hypertension Status: Chronic (4) ICD (implantable cardioverter-defibrillator) malfunction Code(s): T82.118A - Breakdown (mechanical) of other cardiac electronic device, initial encounter Status: Acute (5) Medical non-compliance Code(s): Z91.19 - Patient's noncompliance with other medical treatment and regimen Status: Acute (6) SLE (systemic lupus erythematosus) Code(s): M32.9 - Systemic lupus erythematosus, unspecified Status: Chronic (7) Chronic pain Code(s): G89.29 - Other chronic pain Status: Chronic (8) Acute kidney injury superimposed on CKD Code(s): N17.9 - Acute kidney failure, unspecified; N18.9 - Chronic kidney disease, unspecified Status: Acute - Plan 42-year-old female with History of chronic pain syndrome Possible seizures -Continue with morphine slow release 30 mg at night and 15 mg during the day. DC IV Morphine -As needed Valium 10 mg p.o. every 8 hours- 5 mg po q8 prn AICD malfunction/probable dislodged pacemaker lead, status post lead extraction and placement of new leads 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 2D echo shows tricuspid valve endocarditis, ID following-antibiotics as below CVVH started 08/03 due to severe acidosis, now transition to HD Prior ICD pocket infection in December 2017 and February 2018. Recently replaced by Dr. Cervantes. Per device rep she did not follow-up device check -Continue vancomycin, aztreonam per ID. To complete abx 09/17/18 Essential hypertension. - continue Amlodipine PM wires dislodged- 08/25 - PM interrogated -per TJ - [employer] rep- wires are all dislodged- occasionally capturing Cardiology consulted- Dr. 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 She has undergone device removal on 2 prior occasions. Most recently was removed in February 2018 with wound VAC placement. Device replaced 06/27/18. 2D echo showed tricuspid valve endocarditis while bld cx's are neg -Continue vancomycin, aztreonam per ID . To complete abx 09/17/18 Yeast vaginitis- - s/p diflucan dose; likely 2/2 immunosupression 2/2 steroids Crohn's disease -Renal diet. Protonix PO -follow-up with [facility] gastroenterology in the end of August -continue PO steroids Menorrhagia, patient reports is a chronic problem. Hasn't followed up with gynecology in over a year. 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 -Continue Aldactone and sodium bicarb Hypokalemia -replace as needed Hypernatremia -Improved Systemic lupus erythematosus On chronic steroids -Tapered down from stress dose steroids to chronic baseline dosing Chronic anemia Thrombocytopenia -H&H currently stable, continue to monitor. Repeat CBC in a.m. Hypothyroidism -Continue Synthroid Insomnia continue melatonin Labile mood. per previous notes Patient refusing to be seen by psychiatry doctor. [place]'s dx likely. patient is noted on/off disrupting new AICD as noted with pauses, labs are normal , lytes are normal -continue to monitor PROPH: SCDs for DVT prophylaxis and heparin 5000 units subcu every 8 Protonix 40 mg daily for stress ulcer prophylaxis. (3) Hypertension Qualifiers: Qualified Code(s): I10 - Essential (primary) hypertension (7) Chronic pain Qualifiers: Qualified Code(s): G89.29 - Other chronic pain
[2018-09-13] MEDS: Vancomycin Inj 1,750 MG in Sodium Chlor 0.9% Inj 500 ML IV.SIG SCH (13:38)
--- NOTE | 2018-09-13 14:39 | P.PNNP ---
Subjective Interval history: Sleeping. No acute complaints. Denies shortness of breath, nausea, or vomiting. creatinine stable at 1.15. <MarykodiCher - Last Filed: 09/13/18 14:31> Physical Exam Vital signs: Vital Signs 09/12/18 16:00 09/12/18 20:00 09/12/18 23:53 Temperature 98.8 F 99.4 F Pulse Rate 48 L 110 H 75 Respiratory Rate 20 16 Blood Pressure 107/50 L 107/52 L Pulse Oximetry 99 98 09/13/18 00:00 09/13/18 00:38 09/13/18 04:00 Temperature 98.1 F 98.3 F Pulse Rate 79 67 Respiratory Rate 16 17 16 Blood Pressure 108/49 L 104/58 L Pulse Oximetry 97 97 09/13/18 08:00 Temperature 98.3 F Pulse Rate 78 Respiratory Rate 18 Blood Pressure 93/58 L Pulse Oximetry 98 Intake & Output 09/12/18 09/13/18 09/13/18 18:59 06:59 18:59 Intake Total 1557.5 / 1557.5 440 / 440 100 / 100 Balance 1557.5 / 1557.5 440 / 440 100 / 100 Weight 76.6 kg Intake: IV 717.5 / 717.5 200 / 200 100 / 100 Azactam Inj 2 GM In NS Inj 100 200 / 200 200 / 200 100 / 100 ML @ 100 mls/hr IV.SIG Q6H SHUKRI Rx#:[id number] Vancomycin Inj 1,750 MG In NS 517.5 / 517.5 Inj 500 ML @ 250 mls/hr IV.SIG Q24H SHUKRI Rx#:[id number] Oral 840 / 840 240 / 240 Other: # Voids 6 8 Date of Last Bowel Movement 09/12/18 # Bowel Movements 3 1 Narrative: GENERAL: Alert and oriented x3. NAD SKIN: Warm and dry. NECK: Supple, trachea midline. No JVD. CARDIOVASCULAR: Bradycardia RESPIRATORY: Breath sounds equal bilaterally. No accessory muscle use. GASTROINTESTINAL: Abdomen soft, Bowel sounds are normal, non tender today MUSCULOSKELETAL: No cyanosis, or edema. moves all extremities spontaneously BACK: Nontender without obvious deformity. No CVA tenderness. - Urinary Catheter Management Indwelling Urethral Catheter Cath placed during this visit: yes, but has since been removed by the nurse Reason for continuing: Decision to DC catheter Removal date: 08/07/18 Removal time: 18:00 <Cher Freeman - Last Filed: 09/13/18 14:31> Vital signs: Vital Signs 09/13/18 20:00 09/13/18 23:04 09/13/18 23:48 Temperature 98.7 F Pulse Rate 75 61 Respiratory Rate 16 17 Blood Pressure 109/74 Pulse Oximetry 98 09/14/18 04:00 09/14/18 08:00 09/14/18 12:00 Temperature 97.4 F L 98.5 F 99.6 F Pulse Rate 55 L 71 79 Respiratory Rate 17 20 20 Blood Pressure 114/55 L 107/64 99/64 L Pulse Oximetry 98 97 98 Intake & Output 09/13/18 09/14/18 09/14/18 18:59 06:59 18:59 Intake Total 1311.5 / 1311.5 440 / 440 317.5 / 317.5 Balance 1311.5 / 1311.5 440 / 440 317.5 / 317.5 Weight 76.3 kg Intake: IV 717.5 / 717.5 200 / 200 317.5 / 317.5 Azactam Inj 2 GM In NS Inj 100 200 / 200 200 / 200 100 / 100 ML @ 100 mls/hr IV.SIG Q6H SHUKRI Rx#:[id number] Vancomycin Inj 1,750 MG In NS 517.5 / 517.5 217.5 / 217.5 Inj 500 ML @ 250 mls/hr IV.SIG Q24H SHUKRI Rx#:[id number] Oral 594 / 594 240 / 240 Other: # Voids 5 3 Date of Last Bowel Movement 09/13/18 # Bowel Movements 0 - Urinary Catheter Management Indwelling Urethral Catheter Cath placed during this visit: no <Slim Arrieta - Last Filed: 09/14/18 17:00> Assessment and Plan - Assessment (1) Acute kidney injury superimposed on CKD Code(s): N17.9 - Acute kidney failure, unspecified; N18.9 - Chronic kidney disease, unspecified Status: Acute Plan: Creatinine has remained stable 1.15 has RTA, fluids encouraged. Continue Aldactone, potassium replacement and NaHCO3. Labs in AM (2) Hypertension Code(s): I10 - Essential (primary) hypertension Status: Chronic Qualifiers: Hypertension type: essential hypertension Qualified Code(s): I10 - Essential (primary) hypertension Plan: On lower side, will monitor (3) Endocarditis of tricuspid valve Code(s): I36.8 - Other nonrheumatic tricuspid valve disorders Status: Acute Plan: Antibiotics per ID <Cher Freeman - Last Filed: 09/13/18 14:31> - Assessment (1) Acute kidney injury superimposed on CKD Code(s): N17.9 - Acute kidney failure, unspecified; N18.9 - Chronic kidney disease, unspecified Status: Acute Plan: Patient seen and examine, agree with above. Creatinine is stable at 1.0-1.1, which is her baseline. Continue Kcl and NaHco3 for RTA. (2) Hypertension Code(s): I10 - Essential (primary) hypertension Status: Chronic Qualifiers: Hypertension type: essential hypertension Qualified Code(s): I10 - Essential (primary) hypertension (3) Endocarditis of tricuspid valve Code(s): I36.8 - Other nonrheumatic tricuspid valve disorders Status: Acute <Slim Arrieta - Last Filed: 09/14/18 17:00>
[2018-09-13] MEDS: Melatonin 5 MG Tablet PO SCH (21:25)
[2018-09-13] MEDS: LORazepam 1 MG Tablet PO SCH (21:31)
[2018-09-14] MEDS: Levothyroxine 112 MCG Tablet PO SCH (05:15)
[2018-09-14] MEDS: Heparin - SQ 10,000 UNITS/ML Vial SQ SCH ×3 (05:15→21:24)
[2018-09-14] MEDS: Aztreonam Inj 2 GM in Sodium Chloride 0.9% Inj 100 ML IV.SIG SCH ×4 (05:15→23:14)
[2018-09-14 07:34] LABS: Baso # (Auto) 0.1 th/mm3 (0.0-0.2); Baso % (Auto) 1.4 % (0.0-2.0); Eos # (Auto) 0.2 th/mm3 (0.0-0.4); Eos % (Auto) 3.1 % (0.0-4.0); Hematocrit 30.2 % (35.0-46.0); Hemoglobin 10.2 gm/dL (11.6-15.3); Lymph # (Auto) 1.9 th/mm3 (1.0-4.8); Lymph % (Auto) 31.1 % (9.0-44.0); Mean Corpuscular HGB Conc 33.7 % (32.0-36.0); Mean Corpuscular Hemoglobin 31.3 pg (27.0-34.0); Mean Corpuscular Volume 92.9 fL (80.0-100.0); Mean Platelet Volume 7.4 fL (7.0-11.0); Mono # (Auto) 0.6 th/mm3 (0.0-0.9); Mono % (Auto) 9.9 % (0.0-8.0); Neut # (Auto) 3.4 th/mm3 (1.8-7.7); Neut % (Auto) 54.5 % (16.0-70.0); Platelet Count 161 th/mm3 (150-450); Red Blood Count 3.25 mil/mm3 (4.00-5.30); Red Cell Distribution Width 18.1 % (11.6-17.2); White Blood Count 6.2 th/mm3 (4.0-11.0)
[2018-09-14 08:12] LABS: Albumin 2.7 g/dL (3.4-5.0); Anion Gap 7 meq/L (5-15); Aspartate Aminotransferase 14 U/L (15-37); Blood Urea Nitrogen 22 mg/dL (7-18); Calcium 8.2 mg/dL (8.5-10.1); Chloride 115 meq/L (98-107); Glomerular Filtration Rate 60 mL/min (>89); Glucose,Random 87 mg/dL (74-106); Potassium 4.2 meq/L (3.5-5.1); Sodium 144 meq/L (136-145)
[2018-09-14 08:15] LABS: Alanine Aminotransferase 21 U/L (10-53); Alkaline Phosphatase 83 U/L (45-117); Total Protein 6.2 g/dL (6.4-8.2)
[2018-09-14] MEDS: Sodium Bicarbonate 650 MG Tablet PO SCH ×3 (08:33→17:02)
[2018-09-14] MEDS: amLODIPine 5 MG Tablet PO SCH (08:33)
[2018-09-14] MEDS: Morphine Sulfate 15 MG SR Tablet PO SCH ×2 (08:33→21:24)
[2018-09-14] MEDS: predniSONE 20 MG Tablet PO SCH (08:33)
[2018-09-14] MEDS: Lisinopril 5 MG Tablet PO SCH (08:34)
[2018-09-14] MEDS: Spironolactone 25 MG Tablet PO SCH ×2 (08:34→17:14)
[2018-09-14] MEDS: Senna/Docusate Sodium 8.6/50 MG Tablet PO SCH ×2 (08:34→21:25)
[2018-09-14] MEDS: Heparin Central Flush 100 UNIT/ML 5 ML Vial IV.FLUSH SCH (08:35)
--- NOTE | 2018-09-14 09:46 | P.PN ---
Subjective Interval history: Follow-up endocarditis/revision of pacemaker September 14, 2018-patient seen and examined, resting comfortably and denies any significant shortness of breath. Currently afebrile. looking forward going home on Monday. Physical Exam Vital signs: Vital Signs 09/13/18 12:00 09/13/18 16:00 09/13/18 20:00 Temperature 98.8 F 98.3 F 98.7 F Pulse Rate 85 67 75 Respiratory Rate 18 18 16 Blood Pressure 119/73 113/66 109/74 Pulse Oximetry 98 98 98 09/13/18 23:04 09/13/18 23:48 09/14/18 04:00 Temperature 97.4 F L Pulse Rate 61 55 L Respiratory Rate 17 17 Blood Pressure 114/55 L Pulse Oximetry 98 Intake & Output 09/13/18 09/14/18 09/14/18 18:59 06:59 18:59 Intake Total 1311.5 / 1311.5 440 / 440 Balance 1311.5 / 1311.5 440 / 440 Weight 76.3 kg Intake: IV 717.5 / 717.5 200 / 200 Azactam Inj 2 GM In NS Inj 100 200 / 200 200 / 200 ML @ 100 mls/hr IV.SIG Q6H SHUKRI Rx#:[id number] Vancomycin Inj 1,750 MG In NS 517.5 / 517.5 Inj 500 ML @ 250 mls/hr IV.SIG Q24H SHUKRI Rx#:[id number] Oral 594 / 594 240 / 240 Other: # Voids 5 3 Date of Last Bowel Movement 09/13/18 # Bowel Movements 0 Narrative: GENERAL: Well-nourished, well-developed patient in no apparent distress. SKIN: Warm and dry. Left chest wall with incision site intact. HEAD: Atraumatic. Normocephalic. EYES: Pupils equal and round. No scleral icterus. No injection or drainage. ENT: No nasal bleeding or discharge. Mucous membranes pink and moist. NECK: Trachea midline. No JVD. CARDIOVASCULAR: Regular rate and rhythm. RESPIRATORY: No accessory muscle use. Clear to auscultation. Breath sounds equal bilaterally. GASTROINTESTINAL: Abdomen soft, non-tender, nondistended. Hepatic and splenic margins not palpable. MUSCULOSKELETAL: Extremities without clubbing, cyanosis, or edema. No obvious deformities. NEUROLOGICAL: Awakes to voice, oriented x3. No obvious cranial nerve deficits. Motor grossly within normal limits. Limited range of motion left arm due to pacemaker insertion, wearing sling. Normal speech. PSYCH: cooperative. - Urinary Catheter Management Indwelling Urethral Catheter Cath placed during this visit: yes, but has since been removed by the nurse Reason for continuing: Decision to DC catheter Removal date: 08/07/18 Removal time: 18:00 Results - Labs CBC & Chem 7: 09/14/18 06:25 09/14/18 06:25 Laboratory Results - last 24 hr 09/14/18 09/14/18 06:25 06:25 WBC 6.2 RBC 3.25 L Hgb 10.2 L Hct 30.2 L MCV 92.9 MCH 31.3 MCHC 33.7 RDW 18.1 H Plt Count 161 MPV 7.4 Neut % (Auto) 54.5 Lymph % (Auto) 31.1 [place] % (Auto) 9.9 H Eos % (Auto) 3.1 Baso % (Auto) 1.4 Neut # (Auto) 3.4 Lymph # (Auto) 1.9 [place] # (Auto) 0.6 Eos # (Auto) 0.2 Baso # (Auto) 0.1 WBC Differential . Differential Comment Auto diff final Sodium 144 Potassium 4.2 Chloride 115 H Carbon Dioxide 22.0 Anion Gap 7 BUN 22 H Creatinine 1.02 H Estimated GFR 60 L Random Glucose 87 Calcium 8.2 L Total Bilirubin 0.2 AST 14 L ALT 21 Alkaline Phosphatase 83 Total Protein 6.2 L Albumin 2.7 L Assessment and Plan - Assessment (1) Endocarditis of tricuspid valve Code(s): I36.8 - Other nonrheumatic tricuspid valve disorders Status: Acute (2) Brugada syndrome Code(s): I49.8 - Other specified cardiac arrhythmias Status: Resolved (3) Hypertension Code(s): I10 - Essential (primary) hypertension Status: Chronic (4) ICD (implantable cardioverter-defibrillator) malfunction Code(s): T82.118A - Breakdown (mechanical) of other cardiac electronic device, initial encounter Status: Acute (5) Medical non-compliance Code(s): Z91.19 - Patient's noncompliance with other medical treatment and regimen Status: Acute (6) SLE (systemic lupus erythematosus) Code(s): M32.9 - Systemic lupus erythematosus, unspecified Status: Chronic (7) Chronic pain Code(s): G89.29 - Other chronic pain Status: Chronic (8) Acute kidney injury superimposed on CKD Code(s): N17.9 - Acute kidney failure, unspecified; N18.9 - Chronic kidney disease, unspecified Status: Acute - Plan 42-year-old female with History of chronic pain syndrome Possible seizures -Continue with morphine slow release 30 mg at night and 15 mg during the day. DC IV Morphine -As needed Valium 10 mg p.o. every 8 hours- 5 mg po q8 prn AICD malfunction/probable dislodged pacemaker lead, status post lead extraction and placement of new leads 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 2D echo shows tricuspid valve endocarditis, ID following-antibiotics as below CVVH started 08/03 due to severe acidosis, now transition to HD Prior ICD pocket infection in December 2017 and February 2018. Recently replaced by Dr. Cervantes. Per device rep she did not follow-up device check -Continue vancomycin, aztreonam per ID. To complete abx 09/17/18 Essential hypertension. - continue Amlodipine PM wires dislodged- 08/25 - PM interrogated -per TJ - [employer] rep- wires are all dislodged- occasionally capturing Cardiology consulted- Dr. 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 She has undergone device removal on 2 prior occasions. Most recently was removed in February 2018 with wound VAC placement. Device replaced 06/27/18. 2D echo showed tricuspid valve endocarditis while bld cx's are neg -Continue vancomycin, aztreonam per ID . To complete abx 09/17/18 Yeast vaginitis- - s/p diflucan dose; likely 2/2 immunosupression 2/2 steroids Crohn's disease -Renal diet. Protonix PO -follow-up with [facility] gastroenterology in the end of August -continue PO steroids Menorrhagia, patient reports is a chronic problem. Hasn't followed up with gynecology in over a year. 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 -Renal indices stable -Continue Aldactone, potassium replacement and sodium bicarb Hypokalemia -replace as needed Hypernatremia -Improved Systemic lupus erythematosus On chronic steroids -Tapered down from stress dose steroids to chronic baseline dosing Chronic anemia Thrombocytopenia -H&H currently stable, continue to monitor. Hypothyroidism -Continue Synthroid Insomnia continue melatonin Labile mood. per previous notes Patient refusing to be seen by psychiatry doctor. [place]'s dx likely. patient is noted on/off disrupting new AICD as noted with pauses, labs are normal , lytes are normal -continue to monitor PROPH: SCDs for DVT prophylaxis and heparin 5000 units subcu every 8 Protonix 40 mg daily for stress ulcer prophylaxis. (3) Hypertension Qualifiers: Hypertension type: essential hypertension Qualified Code(s): I10 - Essential (primary) hypertension (6) SLE (systemic lupus erythematosus) Qualifiers: Systemic lupus erythematosus type: unspecified (7) Chronic pain Qualifiers: Chronic pain type: other chronic pain Qualified Code(s): G89.29 - Other chronic pain
[2018-09-14] MEDS ORDERED: Pharmacy Ordered Lab Info OTHER ONE (11:45)
--- NOTE | 2018-09-14 12:00 | P.PNNP ---
Subjective Interval history: No events overnight. No acute complaints. Creatinine and potassium levels normal. <Cher Freeman - Last Filed: 09/14/18 11:57> Physical Exam Vital signs: Vital Signs 09/13/18 12:00 09/13/18 16:00 09/13/18 20:00 Temperature 98.8 F 98.3 F 98.7 F Pulse Rate 85 67 75 Respiratory Rate 18 18 16 Blood Pressure 119/73 113/66 109/74 Pulse Oximetry 98 98 98 09/13/18 23:04 09/13/18 23:48 09/14/18 04:00 Temperature 97.4 F L Pulse Rate 61 55 L Respiratory Rate 17 17 Blood Pressure 114/55 L Pulse Oximetry 98 09/14/18 08:00 Temperature 98.5 F Pulse Rate 71 Respiratory Rate 20 Blood Pressure 107/64 Pulse Oximetry 97 Intake & Output 09/13/18 09/14/18 09/14/18 18:59 06:59 18:59 Intake Total 1311.5 / 1311.5 440 / 440 100 / 100 Balance 1311.5 / 1311.5 440 / 440 100 / 100 Weight 76.3 kg Intake: IV 717.5 / 717.5 200 / 200 100 / 100 Azactam Inj 2 GM In NS Inj 100 200 / 200 200 / 200 100 / 100 ML @ 100 mls/hr IV.SIG Q6H SHUKRI Rx#:[id number] Vancomycin Inj 1,750 MG In NS 517.5 / 517.5 Inj 500 ML @ 250 mls/hr IV.SIG Q24H SHUKRI Rx#:[id number] Oral 594 / 594 240 / 240 Other: # Voids 5 3 Date of Last Bowel Movement 09/13/18 # Bowel Movements 0 Narrative: GENERAL: Alert and oriented x3. NAD SKIN: Warm and dry. NECK: Supple, trachea midline. No JVD. CARDIOVASCULAR: Bradycardia RESPIRATORY: Breath sounds equal bilaterally. No accessory muscle use. GASTROINTESTINAL: Abdomen soft, Bowel sounds are normal, non tender today MUSCULOSKELETAL: No cyanosis, or edema. moves all extremities spontaneously BACK: Nontender without obvious deformity. No CVA tenderness. - Urinary Catheter Management Indwelling Urethral Catheter Cath placed during this visit: yes, but has since been removed by the nurse Reason for continuing: Decision to DC catheter Removal date: 08/07/18 Removal time: 18:00 <Cher Freeman - Last Filed: 09/14/18 11:57> Vital signs: Vital Signs 09/18/18 12:00 09/18/18 16:00 09/18/18 20:00 Temperature 97.9 F 98.4 F 98.8 F Pulse Rate 78 58 L 59 L Respiratory Rate 18 18 20 Blood Pressure 104/64 107/67 117/61 Pulse Oximetry 98 98 09/18/18 20:05 09/19/18 00:00 09/19/18 03:59 Temperature 98.1 F Pulse Rate 61 53 L 66 Respiratory Rate 18 Blood Pressure 111/58 L Pulse Oximetry 99 09/19/18 04:00 09/19/18 08:00 Temperature 97.9 F 98.2 F Pulse Rate 70 82 Respiratory Rate 18 17 Blood Pressure 96/53 L 106/72 Pulse Oximetry 99 97 Intake & Output 09/18/18 09/19/18 09/19/18 18:59 06:59 18:59 Weight 77.9 kg Other: # Voids 10 3 # Bowel Movements 1 - Urinary Catheter Management Indwelling Urethral Catheter Cath placed during this visit: no <Slim Arrieta - Last Filed: 09/19/18 10:46> Assessment and Plan - Assessment (1) Acute kidney injury superimposed on CKD Code(s): N17.9 - Acute kidney failure, unspecified; N18.9 - Chronic kidney disease, unspecified Status: Acute Plan: Creatinine has remained stable 1.01, potassium at 4.2, HCO3 at 22. Has RTA. Continue Aldactone, potassium replacement and NaHCO3. Fluids encouraged. (2) Hypertension Code(s): I10 - Essential (primary) hypertension Status: Chronic Qualifiers: Hypertension type: essential hypertension Qualified Code(s): I10 - Essential (primary) hypertension Plan: On lower side, will monitor (3) Endocarditis of tricuspid valve Code(s): I36.8 - Other nonrheumatic tricuspid valve disorders Status: Acute Plan: Antibiotics per ID <Cher Freeman - Last Filed: 09/14/18 11:57> - Assessment (1) Acute kidney injury superimposed on CKD Code(s): N17.9 - Acute kidney failure, unspecified; N18.9 - Chronic kidney disease, unspecified Status: Acute Plan: Patient seen and examined, agree with above. K is normal, Creatinine is 1.1, Continue Kcl and NaHco3. (2) Hypertension Code(s): I10 - Essential (primary) hypertension Status: Chronic Qualifiers: Hypertension type: essential hypertension Qualified Code(s): I10 - Essential (primary) hypertension (3) Endocarditis of tricuspid valve Code(s): I36.8 - Other nonrheumatic tricuspid valve disorders Status: Acute <Slim Arrieta - Last Filed: 09/19/18 10:46>
[2018-09-14] MEDS: Vancomycin Inj 1,750 MG in Sodium Chlor 0.9% Inj 500 ML IV.SIG SCH (13:00)
--- NOTE | 2018-09-14 17:10 | IR ---
EXAM DATE: 08/17/2018 3:16 PM EDT AGE/SEX: 42 years / Female INDICATIONS: Patient with history of endocarditis in need of central venous access for antibiotics. CLINICAL DATA: This is the patient's subsequent encounter. Patient reports that signs and symptoms h ave been present for 2 weeks and indicates a pain score of 0/10. MEDICAL/SURGICAL HISTORY: Lupus. Hypothyroidism. Endocarditis, Endometriosis, CKD, Gastropares is, Brugada syndrome, Crohn disease, Esophagitis Appendectomy. Cystoscopy, Laparoscopy, Colonoscopy, EGD, AICD, Port placement, G-tube COMPARISON: No prior exams available for comparison. FLUORO TIME (min): 4.3 IMAGE SERIES: 2 ACCESS SITE: Right basilic vein CONTRAST (cc): 10cc Omnipaque (iohexol) 350 DEVICE(S): 5 [place] double lumen X23CM Xcela Power PICC . . PROCEDURE: 1. Ultrasound-guided venipuncture. 2. Fluoroscopically guided midline placement. The risks, benefits and alternatives to the procedure were explained and verbal and written consent w as obtained. The site was prepped in sterile fashion. Full sterile technique was used, including ca p, mask, sterile gloves and gown and a large sterile sheet. Hand hygiene and 2% chlorhexidine prep w as utilized per protocol for cutaneous antisepsis with appropriate dry time for site. Sterile gel an d sterile probe cover were utilized for ultrasound guidance. The skin and subcutaneous tissues were infiltrated with local anesthetic solution. With ultrasound and fluoroscopic guidance the targeted vein was punctured and a guidewire was advance d as distally as possible in this patient with findings of central venous occlusion/stenosis. A peel- away sheath was placed and a PICC line cut to the prescribed length was placed without difficulty. T he catheter was fixed in place with a stat lock device. CONCLUSION: 1. Uncomplicated midline placement. Electronically signed by: Albert Villanueva MD 09/14/2018 5:09 PM EST
[2018-09-14] MEDS: LORazepam 1 MG Tablet PO SCH (21:25)
[2018-09-14] MEDS: Melatonin 5 MG Tablet PO SCH (22:57)
[2018-09-15] MEDS: Levothyroxine 112 MCG Tablet PO SCH (05:48)
[2018-09-15] MEDS: Heparin - SQ 10,000 UNITS/ML Vial SQ SCH ×3 (05:48→21:10)
[2018-09-15] MEDS: Aztreonam Inj 2 GM in Sodium Chloride 0.9% Inj 100 ML IV.SIG SCH ×4 (06:07→21:12)
[2018-09-15] MEDS: amLODIPine 5 MG Tablet PO SCH (09:47)
[2018-09-15] MEDS: predniSONE 20 MG Tablet PO SCH (09:47)
[2018-09-15] MEDS: Lisinopril 5 MG Tablet PO SCH (09:47)
[2018-09-15] MEDS: Sodium Bicarbonate 650 MG Tablet PO SCH ×3 (09:47→18:26)
[2018-09-15] MEDS: Morphine Sulfate 15 MG SR Tablet PO SCH ×2 (09:47→21:11)
[2018-09-15] MEDS: Heparin Central Flush 100 UNIT/ML 5 ML Vial IV.FLUSH SCH (09:48)
[2018-09-15] MEDS: Senna/Docusate Sodium 8.6/50 MG Tablet PO SCH ×2 (09:49→21:12)
[2018-09-15] MEDS: Spironolactone 25 MG Tablet PO SCH ×2 (09:55→18:26)
[2018-09-15] MEDS: Vancomycin Inj 1,500 MG in Sodium Chlor 0.9% Inj 500 ML IV.SIG SCH (11:01)
--- NOTE | 2018-09-15 12:04 | P.PN ---
Subjective Interval history: Follow-up endocarditis/revision of pacemaker September 14, 2018-patient seen and examined, resting comfortably and denies any significant shortness of breath. Currently afebrile. looking forward going home on Monday. September 15, 2018-patient seen and examined, complaining of some heart palpitation with positional change. Patient denies manipulating her leads. Physical Exam Vital signs: Vital Signs 09/14/18 13:48 09/14/18 16:00 09/14/18 20:00 Temperature 99.2 F Pulse Rate 73 86 77 Respiratory Rate 16 Blood Pressure 131/60 Pulse Oximetry 99 09/15/18 00:00 09/15/18 04:00 09/15/18 08:00 Temperature 98.3 F 98.3 F 98.1 F Pulse Rate 77 62 88 Respiratory Rate 16 16 16 Blood Pressure 106/56 L 116/56 L 116/75 Pulse Oximetry 97 97 97 09/15/18 12:00 Temperature 98.4 F Pulse Rate 79 Respiratory Rate 18 Blood Pressure 104/65 Pulse Oximetry 100 Intake & Output 09/14/18 09/15/18 09/15/18 18:59 06:59 18:59 Intake Total 977.5 / 977.5 820 / 820 100 / 100 Balance 977.5 / 977.5 820 / 820 100 / 100 Weight 76 kg Intake: IV 417.5 / 417.5 100 / 100 100 / 100 Azactam Inj 2 GM In NS Inj 100 200 / 200 100 / 100 100 / 100 ML @ 100 mls/hr IV.SIG Q6H SHUKRI Rx#:[id number] Vancomycin Inj 1,750 MG In NS 217.5 / 217.5 Inj 500 ML @ 250 mls/hr IV.SIG Q24H SHUKRI Rx#:[id number] Oral 560 / 560 Oral Supplement 720 / 720 Other: # Voids 4 5 Date of Last Bowel Movement 09/13/18 Narrative: GENERAL: Alert and oriented x3. NAD SKIN: Warm and dry. NECK: Supple, trachea midline. No JVD. CARDIOVASCULAR: Bradycardia RESPIRATORY: Breath sounds equal bilaterally. No accessory muscle use. GASTROINTESTINAL: Abdomen soft, Bowel sounds are normal, non tender today MUSCULOSKELETAL: No cyanosis, or edema. moves all extremities spontaneously BACK: Nontender without obvious deformity. No CVA tenderness. - Urinary Catheter Management Indwelling Urethral Catheter Cath placed during this visit: yes, but has since been removed by the nurse Reason for continuing: Decision to DC catheter Removal date: 08/07/18 Removal time: 18:00 Results - Labs CBC & Chem 7: 09/14/18 06:25 09/15/18 02:00 Laboratory Results - last 24 hr 09/14/18 09/15/18 12:00 02:00 Creatinine 1.10 H Estimated GFR 55 L Vancomycin Trough 10.7 H - Imaging Impressions Central Venous Line 08/17/18 15:16 CONCLUSION: 1. Uncomplicated midline placement. Assessment and Plan - Assessment (1) Endocarditis of tricuspid valve Code(s): I36.8 - Other nonrheumatic tricuspid valve disorders Status: Acute (2) Brugada syndrome Code(s): I49.8 - Other specified cardiac arrhythmias Status: Resolved (3) Hypertension Code(s): I10 - Essential (primary) hypertension Status: Chronic (4) ICD (implantable cardioverter-defibrillator) malfunction Code(s): T82.118A - Breakdown (mechanical) of other cardiac electronic device, initial encounter Status: Acute (5) Medical non-compliance Code(s): Z91.19 - Patient's noncompliance with other medical treatment and regimen Status: Acute (6) SLE (systemic lupus erythematosus) Code(s): M32.9 - Systemic lupus erythematosus, unspecified Status: Chronic (7) Chronic pain Code(s): G89.29 - Other chronic pain Status: Chronic (8) Acute kidney injury superimposed on CKD Code(s): N17.9 - Acute kidney failure, unspecified; N18.9 - Chronic kidney disease, unspecified Status: Acute - Plan 42-year-old female with History of chronic pain syndrome Possible seizures -Continue with morphine slow release 30 mg at night and 15 mg during the day. DC IV Morphine -As needed Valium 10 mg p.o. every 8 hours- 5 mg po q8 prn AICD malfunction/probable dislodged pacemaker lead, status post lead extraction and placement of new leads 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 2D echo shows tricuspid valve endocarditis, ID following-antibiotics as below CVVH started 08/03 due to severe acidosis, now transition to HD Prior ICD pocket infection in December 2017 and February 2018. Recently replaced by Dr. Cervantes. Per device rep she did not follow-up device check -Management per director regulatory affairs -Continue vancomycin, aztreonam per ID. To complete abx 09/17/18 Essential hypertension. - continue Amlodipine PM wires dislodged- 08/25 - PM interrogated -per TJ - [employer] rep- wires are all dislodged- occasionally capturing Cardiology consulted- Dr. 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 She has undergone device removal on 2 prior occasions. Most recently was removed in February 2018 with wound VAC placement. Device replaced 06/27/18. 2D echo showed tricuspid valve endocarditis while bld cx's are neg -Continue vancomycin, aztreonam per ID . To complete abx 09/17/18 Yeast vaginitis- - s/p diflucan dose; likely 2/2 immunosupression 2/2 steroids Crohn's disease -Renal diet. Protonix PO -follow-up with [facility] gastroenterology in the end of August -continue PO steroids Menorrhagia, patient reports is a chronic problem. Hasn't followed up with gynecology in over a year. 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 -Renal indices stable -Continue Aldactone, potassium replacement and sodium bicarb Hypokalemia -replace as needed Hypernatremia -Improved Systemic lupus erythematosus On chronic steroids -Tapered down from stress dose steroids to chronic baseline dosing Chronic anemia Thrombocytopenia -H&H currently stable, continue to monitor. Hypothyroidism -Continue Synthroid Insomnia continue melatonin Labile mood. per previous notes Patient refusing to be seen by psychiatry doctor. 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 patient is noted on/off disrupting new AICD as noted with pauses, labs are normal , lytes are normal -continue to monitor PROPH: SCDs for DVT prophylaxis and heparin 5000 units subcu every 8 Protonix 40 mg daily for stress ulcer prophylaxis. (3) Hypertension Qualifiers: Hypertension type: essential hypertension Qualified Code(s): I10 - Essential (primary) hypertension (6) SLE (systemic lupus erythematosus) Qualifiers: Systemic lupus erythematosus type: unspecified (7) Chronic pain Qualifiers: Chronic pain type: other chronic pain Qualified Code(s): G89.29 - Other chronic pain
[2018-09-15] MEDS: Melatonin 5 MG Tablet PO SCH (21:10)
[2018-09-15] MEDS: LORazepam 1 MG Tablet PO SCH (21:10)
[2018-09-15] MEDS: Heparin Central Flush 100 UNIT/ML 5 ML Vial IV.FLUSH PRN (22:00)
[2018-09-16] MEDS ORDERED: Pharmacy Ordered Lab Info OTHER ONE (03:45)
[2018-09-16] MEDS: Vancomycin Inj 1,500 MG in Sodium Chlor 0.9% Inj 500 ML IV.SIG SCH ×2 (03:54→23:35)
[2018-09-16] MEDS: Aztreonam Inj 2 GM in Sodium Chloride 0.9% Inj 100 ML IV.SIG SCH ×4 (03:54→22:22)
[2018-09-16] MEDS: Levothyroxine 112 MCG Tablet PO SCH (06:18)
[2018-09-16] MEDS: Heparin - SQ 10,000 UNITS/ML Vial SQ SCH ×3 (06:18→22:23)
[2018-09-16] MEDS: Lisinopril 5 MG Tablet PO SCH (08:35)
[2018-09-16] MEDS: amLODIPine 5 MG Tablet PO SCH (08:35)
[2018-09-16] MEDS: Heparin Central Flush 100 UNIT/ML 5 ML Vial IV.FLUSH SCH (08:35)
[2018-09-16] MEDS: predniSONE 20 MG Tablet PO SCH (08:36)
[2018-09-16] MEDS: Morphine Sulfate 15 MG SR Tablet PO SCH ×2 (08:36→20:57)
[2018-09-16] MEDS: Spironolactone 25 MG Tablet PO SCH ×2 (08:36→18:15)
[2018-09-16] MEDS: Sodium Bicarbonate 650 MG Tablet PO SCH ×3 (08:36→18:15)
[2018-09-16] MEDS: Senna/Docusate Sodium 8.6/50 MG Tablet PO SCH ×2 (08:37→22:23)
--- NOTE | 2018-09-16 09:50 | P.PN ---
Subjective Interval history: Follow-up endocarditis/revision of pacemaker September 14, 2018-patient seen and examined, resting comfortably and denies any significant shortness of breath. Currently afebrile. looking forward going home on Monday. September 15, 2018-patient seen and examined, complaining of some heart palpitation with positional change. Patient denies manipulating her leads. September 16, 2018-patient seen and examined, complains of chest pain and feels like something is about to been ripped off out of the chest Physical Exam Vital signs: Vital Signs 09/15/18 12:00 09/15/18 16:00 09/15/18 20:00 Temperature 98.4 F 97.9 F 99.4 F Pulse Rate 72 75 100 H Respiratory Rate 18 18 16 Blood Pressure 104/65 135/61 117/58 L Pulse Oximetry 100 100 96 09/15/18 23:51 09/16/18 00:00 09/16/18 04:00 Temperature 98.5 F 98.8 F Pulse Rate 91 H 84 73 Respiratory Rate 18 17 Blood Pressure 108/64 98/51 L Pulse Oximetry 95 98 09/16/18 08:00 Temperature 98.4 F Pulse Rate 77 Respiratory Rate 18 Blood Pressure 112/74 Pulse Oximetry 99 Intake & Output 09/15/18 09/16/18 09/16/18 18:59 06:59 18:59 Intake Total 1295 / 1295 1220 / 1220 Balance 1295 / 1295 1220 / 1220 Weight 77.4 kg Intake: IV 815 / 815 740 / 740 Azactam Inj 2 GM In NS Inj 100 300 / 300 200 / 200 ML @ 100 mls/hr IV.SIG Q6H [facility] Rx#:[id number] Vancomycin Inj 1,500 MG In NS 515 / 515 540 / 540 Inj 500 ML @ 257.5 mls/hr IV. SIG Q18H [facility] Rx#:[id number] Oral 480 / 480 480 / 480 Other: # Voids 4 4 Date of Last Bowel Movement 09/14/18 # Bowel Movements 2 Narrative: GENERAL: Alert and oriented x3. NAD SKIN: Warm and dry. NECK: Supple, trachea midline. No JVD. CARDIOVASCULAR: Bradycardia RESPIRATORY: Breath sounds equal bilaterally. No accessory muscle use. GASTROINTESTINAL: Abdomen soft, Bowel sounds are normal, non tender today MUSCULOSKELETAL: No cyanosis, or edema. moves all extremities spontaneously BACK: Nontender without obvious deformity. No CVA tenderness. - Urinary Catheter Management Indwelling Urethral Catheter Cath placed during this visit: yes, but has since been removed by the nurse Reason for continuing: Decision to DC catheter Removal date: 08/07/18 Removal time: 18:00 Results - Labs CBC & Chem 7: 09/14/18 06:25 09/15/18 02:00 Laboratory Results - last 24 hr 09/16/18 03:50 Vancomycin Trough 14.9 H Assessment and Plan - Assessment (1) Endocarditis of tricuspid valve Code(s): I36.8 - Other nonrheumatic tricuspid valve disorders Status: Acute (2) Brugada syndrome Code(s): I49.8 - Other specified cardiac arrhythmias Status: Resolved (3) Hypertension Code(s): I10 - Essential (primary) hypertension Status: Chronic (4) ICD (implantable cardioverter-defibrillator) malfunction Code(s): T82.118A - Breakdown (mechanical) of other cardiac electronic device, initial encounter Status: Acute (5) Medical non-compliance Code(s): Z91.19 - Patient's noncompliance with other medical treatment and regimen Status: Acute (6) SLE (systemic lupus erythematosus) Code(s): M32.9 - Systemic lupus erythematosus, unspecified Status: Chronic (7) Chronic pain Code(s): G89.29 - Other chronic pain Status: Chronic (8) Acute kidney injury superimposed on CKD Code(s): N17.9 - Acute kidney failure, unspecified; N18.9 - Chronic kidney disease, unspecified Status: Acute - Plan 42-year-old female with History of chronic pain syndrome Possible seizures -Continue with morphine slow release 30 mg at night and 15 mg during the day. DC IV Morphine -As needed Valium 10 mg p.o. every 8 hours- 5 mg po q8 prn AICD malfunction/probable dislodged pacemaker lead, status post lead extraction and placement of new leads 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 2D echo shows tricuspid valve endocarditis, ID following-antibiotics as below CVVH started 08/03 due to severe acidosis, now transition to HD Prior ICD pocket infection in December 2017 and February 2018. Recently replaced by Dr. Cervantes. Per device rep she did not follow-up device check -Management per terra cotta mold maker -Continue vancomycin, aztreonam per ID. To complete abx 09/17/18 Essential hypertension. - continue Amlodipine PM wires dislodged- 08/25 - PM interrogated -per TJ - [employer] rep- wires are all dislodged- occasionally capturing Cardiology consulted- Dr. 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 She has undergone device removal on 2 prior occasions. Most recently was removed in February 2018 with wound VAC placement. Device replaced 06/27/18. 2D echo showed tricuspid valve endocarditis while bld cx's are neg -Continue vancomycin, aztreonam per ID . To complete abx 09/17/18 Yeast vaginitis-resolved - s/p diflucan dose; likely 2/2 immunosupression 2/2 steroids Crohn's disease -follow-up with [facility] gastroenterology in the end of August -continue PO steroids Menorrhagia, patient reports is a chronic problem. Hasn't followed up with gynecology in over a year. Endometriosis -h/h stable, f/u outpt w/ coppersmith apprentice Chronic kidney disease stage III -Nephrology following; Currently patient has a right femoral Vas-Cath. -Continue Aldactone, potassium replacement and sodium bicarb Hypokalemia -replace as needed Hypernatremia -Improved Systemic lupus erythematosus On chronic steroids -Tapered down from stress dose steroids to chronic baseline dosing Chronic anemia Thrombocytopenia -H&H currently stable, continue to monitor. Hypothyroidism -Continue Synthroid Insomnia continue melatonin Labile mood. per previous notes Patient refusing to be seen by psychiatry doctor. [place]'s dx likely. patient is noted on/off disrupting new AICD as noted with pauses, labs are normal , lytes are normal -continue to monitor PROPH: SCDs for DVT prophylaxis and heparin 5000 units subcu every 8 Protonix 40 mg daily for stress ulcer prophylaxis. (3) Hypertension Qualifiers: Hypertension type: essential hypertension Qualified Code(s): I10 - Essential (primary) hypertension (6) SLE (systemic lupus erythematosus) Qualifiers: Systemic lupus erythematosus type: unspecified (7) Chronic pain Qualifiers: Chronic pain type: other chronic pain Qualified Code(s): G89.29 - Other chronic pain
[2018-09-16] MEDS: Melatonin 5 MG Tablet PO SCH (20:54)
[2018-09-16] MEDS: LORazepam 1 MG Tablet PO SCH (21:08)
[2018-09-17] MEDS: Aztreonam Inj 2 GM in Sodium Chloride 0.9% Inj 100 ML IV.SIG SCH ×4 (04:30→23:03)
[2018-09-17] MEDS: Levothyroxine 112 MCG Tablet PO SCH (05:37)
[2018-09-17] MEDS: Heparin Central Flush 100 UNIT/ML 5 ML Vial IV.FLUSH PRN (05:37)
[2018-09-17] MEDS: Heparin - SQ 10,000 UNITS/ML Vial SQ SCH ×3 (05:37→23:03)
[2018-09-17] MEDS: Heparin Central Flush 100 UNIT/ML 5 ML Vial IV.FLUSH SCH (09:36)
[2018-09-17] MEDS: Lisinopril 5 MG Tablet PO SCH (09:36)
[2018-09-17] MEDS: Morphine Sulfate 15 MG SR Tablet PO SCH ×2 (09:36→20:58)
[2018-09-17] MEDS: Sodium Bicarbonate 650 MG Tablet PO SCH ×3 (09:36→17:36)
[2018-09-17] MEDS: predniSONE 20 MG Tablet PO SCH (09:37)
[2018-09-17] MEDS: amLODIPine 5 MG Tablet PO SCH (09:37)
[2018-09-17] MEDS: Senna/Docusate Sodium 8.6/50 MG Tablet PO SCH ×2 (09:38→20:59)
[2018-09-17] MEDS: Spironolactone 25 MG Tablet PO SCH ×2 (11:44→17:48)
--- NOTE | 2018-09-17 11:47 | P.PNIM ---
Subjective Interval history: Says that she has been experiencing forceful heartbeats over the past 3 days. Reports these beats are painful. Denies any nausea or vomiting. Denies any shortness of breath. Physical Exam Vital signs: Vital Signs 09/16/18 12:00 09/16/18 16:00 09/16/18 20:00 Temperature 97.9 F 98.6 F 98.1 F Pulse Rate 75 68 88 Respiratory Rate 18 18 20 Blood Pressure 98/53 L 111/54 L 126/58 L Pulse Oximetry 98 98 99 09/17/18 00:00 09/17/18 04:00 09/17/18 08:00 Temperature 97.9 F 98 F 97.5 F L Pulse Rate 80 69 64 Respiratory Rate 16 17 18 Blood Pressure 103/56 L 113/77 108/55 L Pulse Oximetry 98 96 97 Intake & Output 09/16/18 09/17/18 09/17/18 18:59 06:59 18:59 Intake Total 680 / 680 980 / 980 Balance 680 / 680 980 / 980 Intake: IV 200 / 200 740 / 740 Azactam Inj 2 GM In NS Inj 100 200 / 200 200 / 200 ML @ 100 mls/hr IV.SIG Q6H [facility] Rx#:[id number] Vancomycin Inj 1,500 MG In NS 540 / 540 Inj 500 ML @ 257.5 mls/hr IV. SIG Q18H [facility] Rx#:[id number] Oral 480 / 480 240 / 240 Other: # Voids 6 2 # Bowel Movements 3 Narrative: GENERAL: Patient sitting up in bed. Appears comfortable. Alert and oriented x3. SKIN: Warm and dry. HEAD: Normocephalic. EYES: No scleral icterus. No injection or drainage. NECK: Supple, trachea midline. No JVD. CARDIOVASCULAR: Patient appears to have heaving of chest with every third beat. Appears to be involuntary. RESPIRATORY: Breath sounds equal bilaterally. No accessory muscle use. GASTROINTESTINAL: Abdomen soft, non-tender, nondistended. MUSCULOSKELETAL: No cyanosis, or edema. BACK: Nontender without obvious deformity. No CVA tenderness. - Urinary Catheter Management Indwelling Urethral Catheter Cath placed during this visit: yes, but has since been removed by the nurse Reason for continuing: Decision to DC catheter Removal date: 08/07/18 Removal time: 18:00 Results - Labs CBC & Chem 7: 09/14/18 06:25 09/17/18 08:57 Laboratory Results - last 24 hr 09/17/18 08:57 Creatinine 1.07 H Estimated GFR 57 L Assessment and Plan - Assessment (1) Endocarditis of tricuspid valve Code(s): I36.8 - Other nonrheumatic tricuspid valve disorders Status: Acute (2) Brugada syndrome Code(s): I49.8 - Other specified cardiac arrhythmias Status: Resolved (3) Hypertension Code(s): I10 - Essential (primary) hypertension Status: Chronic (4) ICD (implantable cardioverter-defibrillator) malfunction Code(s): T82.118A - Breakdown (mechanical) of other cardiac electronic device, initial encounter Status: Acute (5) Medical non-compliance Code(s): Z91.19 - Patient's noncompliance with other medical treatment and regimen Status: Acute (6) SLE (systemic lupus erythematosus) Code(s): M32.9 - Systemic lupus erythematosus, unspecified Status: Chronic (7) Chronic pain Code(s): G89.29 - Other chronic pain Status: Chronic (8) Acute kidney injury superimposed on CKD Code(s): N17.9 - Acute kidney failure, unspecified; N18.9 - Chronic kidney disease, unspecified Status: Acute - Plan 42-year-old female with History of chronic pain syndrome Possible seizures -Continue with morphine slow release 30 mg at night and 15 mg during the day. DC IV Morphine -As needed Valium 10 mg p.o. every 8 hours- 5 mg po q8 prn AICD malfunction/probable dislodged pacemaker lead, status post lead extraction and placement of new leads 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 2D echo shows tricuspid valve endocarditis, ID following-antibiotics as below CVVH started 08/03 due to severe acidosis, now transition to HD Prior ICD pocket infection in December 2017 and February 2018. Recently replaced by Dr. Cervantes. Per device rep she did not follow-up device check -Management per pin ticket machine operator -Continue vancomycin, aztreonam per ID. To complete abx 09/17/18 = 09/17. Plan for discharge tomorrow after completing antibiotics today. Essential hypertension. - continue Amlodipine PM wires dislodged- 08/25 - PM interrogated -per TJ - [employer] rep- wires are all dislodged- occasionally capturing Cardiology consulted- Dr. Edinson Andrade -s/p pacemaker revision (08/29) = 09/17. Patient with heaving involuntary chest motions. Will check EKG. Reconsult cardiology. Tricuspid valve endocarditis History of ICD pocket infection most recently with MRSA February 2018. She has undergone device removal on 2 prior occasions. Most recently was removed in February 2018 with wound VAC placement. Device replaced 06/27/18. 2D echo showed tricuspid valve endocarditis while bld cx's are neg -Continue vancomycin, aztreonam per ID . To complete abx 09/17/18 Yeast vaginitis-resolved - s/p diflucan dose; likely 2/2 immunosupression 2/2 steroids Crohn's disease -follow-up with [facility] gastroenterology in the end of August -continue PO steroids Menorrhagia, patient reports is a chronic problem. Hasn't followed up with gynecology in over a year. Endometriosis -h/h stable, f/u outpt w/ medical scientist Chronic kidney disease stage III -Nephrology following; Currently patient has a right femoral Vas-Cath. -Continue Aldactone, potassium replacement and sodium bicarb Hypokalemia -replace as needed Hypernatremia -Improved Systemic lupus erythematosus On chronic steroids -Tapered down from stress dose steroids to chronic baseline dosing Chronic anemia Thrombocytopenia -H&H currently stable, continue to monitor. Hypothyroidism -Continue Synthroid Insomnia continue melatonin Labile mood. per previous notes Patient refusing to be seen by psychiatry doctor. [place]'s dx likely. patient is noted on/off disrupting new AICD as noted with pauses, labs are normal , lytes are normal -continue to monitor PROPH: SCDs for DVT prophylaxis and heparin 5000 units subcu every 8 Protonix 40 mg daily for stress ulcer prophylaxis. Discharge Planning: Patient to complete antibiotics through 09/17. Plan discharge on 09/18. Pending cardiology re-evaluation for pacemaker. (3) Hypertension Qualifiers: Hypertension type: essential hypertension Qualified Code(s): I10 - Essential (primary) hypertension (6) SLE (systemic lupus erythematosus) Qualifiers: Systemic lupus erythematosus type: unspecified (7) Chronic pain Qualifiers: Chronic pain type: other chronic pain Qualified Code(s): G89.29 - Other chronic pain
[2018-09-17] MEDS: Vancomycin Inj 1,500 MG in Sodium Chlor 0.9% Inj 500 ML IV.SIG SCH (17:36)
[2018-09-17] MEDS: LORazepam 1 MG Tablet PO SCH (20:58)
[2018-09-17] MEDS: Melatonin 5 MG Tablet PO SCH (20:59)
--- NOTE | 2018-09-17 22:58 | P.PNCA ---
Subjective Interval history: Reconsulted for heart beating too hard Medications and Allergies Active Medications: Active Medications Acetaminophen (Tylenol) 650 mg PO Q6H PRN PRN Reason: PAIN 1-10 AND/OR FEVER >101F Albuterol (Albuterol Neb (Prn)) 2.5 mg NEB Q2HR NEB PRN PRN Reason: SHORTNESS OF BREATH/WHEEZING Amlodipine Besylate (Norvasc) 2.5 mg PO DAILY [facility] Last Admin: 09/17/18 09:37 Dose: 2.5 mg Bisacodyl (Dulcolax Supp) 10 mg RECTAL DAILY PRN PRN Reason: SEVERE CONSITIPATION Diazepam (Valium) 10 mg PO Q8H PRN PRN Reason: ANXIETY Last Admin: 09/17/18 11:44 Dose: 10 mg Heparin Sodium (Porcine) (Heparin Central Flush) 0 unit IV.FLUSH DAILY [facility] Last Admin: 09/17/18 09:36 Dose: 500 unit Heparin Sodium (Porcine) (Heparin Central Flush) 0 unit IV.FLUSH PRN PRN PRN Reason: Flush PICC Line Last Admin: 09/17/18 05:37 Dose: 200 unit Heparin Sodium (Porcine) (Heparin Inj) 5,000 units SQ Q8HR [facility] Last Admin: 09/17/18 17:47 Dose: 5,000 units Hydroxyzine HCl (Atarax) 50 mg PO HS PRN PRN Reason: INSOMNIA Last Admin: 09/16/18 21:08 Dose: 50 mg Protamine Sulfate 250 mg/ (Sodium Chloride) 250 mls @ 5 mls/hr IV.CONT TITRATE PRN; Protocol PRN Reason: REGIONAL HEPARINIZATION Aztreonam 2 gm/ Sodium (Chloride) 100 mls @ 100 mls/hr IV.SIG Q6H [facility] Last Infusion: 09/17/18 19:28 Dose: Infused Vancomycin HCl 1,500 mg/ (Sodium Chloride) 515 mls @ 257.5 mls/hr IV.SIG Q18H [facility] Last Admin: 09/17/18 17:36 Dose: 250 mls/hr Lactulose (Lactulose Liq) 30 ml PO DAILY PRN PRN Reason: SEVERE CONSITIPATION Levothyroxine Sodium (Synthroid) 112 mcg PO DAILY@0600 [facility] Last Admin: 09/17/18 05:37 Dose: 112 mcg Lisinopril (Prinivil) 5 mg PO DAILY [facility] Last Admin: 09/17/18 09:36 Dose: 5 mg Lorazepam (Ativan) 0.5 mg PO HS [facility] Last Admin: 09/17/18 20:58 Dose: 0.5 mg Magnesium Oxide (Mag-Ox) 800 mg PO UNSCH PRN PRN Reason: For Magnesium 1.2 - 1.6 mg/dL Melatonin (Melatonin) 5 mg PO HS [facility] Last Admin: 09/17/18 20:59 Dose: 5 mg Miscellaneous (Pill Splitter) 1 each OTHER UNSCH [facility] Last Admin: 08/27/18 21:16 Dose: 1 each Miscellaneous Information ([facility] Nursing Information) 1 each OTHER [facility] Morphine Sulfate (Oramorph Sr) 15 mg PO DAILY [facility] Last Admin: 09/17/18 09:36 Dose: 15 mg Morphine Sulfate (Oramorph Sr) 30 mg PO HS [facility] Last Admin: 09/17/18 20:58 Dose: 30 mg Ondansetron HCl (Zofran Inj) 4 mg IV.PUSH Q6H PRN PRN Reason: NAUSEA OR VOMITING Last Admin: 08/11/18 04:24 Dose: 4 mg Pantoprazole Sodium (Protonix) 40 mg PO DAILY [facility] Last Admin: 09/17/18 09:38 Dose: 40 mg Pharmacy Profile Note (Vancomycin Consult Pharmacy) 1 each OTHER UNSCH PRN PRN Reason: Pharmacy to dose Potassium Chloride (K-Dur) 20 meq PO BID [facility] Last Admin: 09/17/18 20:58 Dose: 20 meq Prednisone (Deltasone) 20 mg PO DAILY [facility] Last Admin: 09/17/18 09:37 Dose: 20 mg Senna/Docusate Sodium (Irais-Colace) 1 tab PO BID [facility] Last Admin: 09/17/18 20:59 Dose: Not Given Sennosides (Senokot) 17.2 mg PO Q12H PRN PRN Reason: Moderate Constipation Sodium Bicarbonate (Sodium Bicarbonate) 650 mg PO TID [facility] Last Admin: 09/17/18 17:36 Dose: 650 mg Sodium Chloride (Ns Flush) 2 ml IV.FLUSH BID [facility] Last Admin: 09/17/18 20:59 Dose: 2 ml Sodium Chloride (Ns Flush) 2 ml IV.FLUSH PRN PRN PRN Reason: FLUSH AFTER USING IV ACCESS Last Admin: 08/26/18 03:01 Dose: 2 ml Sodium Chloride (Ns Flush) 0 ml IV.FLUSH PRN PRN PRN Reason: FLUSH AFTER USING IV ACCESS Sodium Chloride (Ns Flush) 0 ml IV.FLUSH DAILY [facility] Last Admin: 09/17/18 09:39 Dose: 10 ml Sodium Chloride (Ns Flush) 0 ml IV.FLUSH PRN PRN PRN Reason: Flush After Blood Draws Spironolactone (Aldactone) 12.5 mg PO BID@0900,1800 [facility] Last Admin: 09/17/18 17:48 Dose: 12.5 mg Allergies Allergy/AdvReac Type Severity Reaction Status Date / Time cephalexin Allergy Severe RASH,SWELLI Verified 07/13/18 17:57 NG Fish Containing Products Allergy Severe SWELLING Verified 07/13/18 17:57 IN THROAT, SOB ketorolac Allergy Severe RASH Verified 07/13/18 17:57 penicillin G Allergy Severe RASH,SWELLI Verified 07/13/18 17:57 NG prochlorperazine Allergy Mild DYSTONIC Verified 07/13/18 17:57 REACTION promethazine Allergy Mild DYSTONIC Verified 07/13/18 17:57 REACTION Home Medications Medication Instructions Recorded Confirmed Type levothyroxine [Synthroid] 112 mcg PO DAILY 05/08/18 08/16/18 History magnesium 100 mg PO QID 05/08/18 08/16/18 History pantoprazole [Protonix] 40 mg PO DAILY 05/08/18 08/16/18 History potassium chloride 40 meq PO TID 05/08/18 08/16/18 History potassium phosphate, monobasic 1,000 mg PO TID 05/08/18 08/16/18 History [K-Phos Original] prednisone 30 mg PO DAILY 05/08/18 08/16/18 History spironolactone 25 mg PO DAILY 05/08/18 08/16/18 History Physical Exam Vital signs: Vital Signs 09/17/18 00:00 09/17/18 04:00 09/17/18 08:00 Temperature 97.9 F 98 F 97.5 F L Pulse Rate 80 69 64 Respiratory Rate 16 17 18 Blood Pressure 103/56 L 113/77 108/55 L Pulse Oximetry 98 96 97 09/17/18 12:00 09/17/18 16:00 Temperature 98.0 F 98.0 F Pulse Rate 89 62 Respiratory Rate 20 18 Blood Pressure 109/71 118/56 L Pulse Oximetry 96 96 Intake & Output 09/17/18 09/17/18 09/18/18 06:59 18:59 06:59 Intake Total 980 / 980 100 / 100 100 / 100 Balance 980 / 980 100 / 100 100 / 100 Intake: IV 740 / 740 100 / 100 100 / 100 Azactam Inj 2 GM In NS Inj 100 200 / 200 100 / 100 100 / 100 ML @ 100 mls/hr IV.SIG Q6H [facility] Rx#:[id number] Vancomycin Inj 1,500 MG In NS 540 / 540 Inj 500 ML @ 257.5 mls/hr IV. SIG Q18H [facility] Rx#:[id number] Oral 240 / 240 Other: # Voids 2 10 # Bowel Movements 1 Narrative: GENERAL: Patient sitting up in bed. Appears comfortable. Alert and oriented x3. SKIN: Warm and dry. HEAD: Normocephalic. EYES: No scleral icterus. No injection or drainage. NECK: Supple, trachea midline. No JVD. CARDIOVASCULAR: Patient appears to have heaving of chest with every third beat. Appears to be involuntary. RESPIRATORY: Breath sounds equal bilaterally. No accessory muscle use. GASTROINTESTINAL: Abdomen soft, non-tender, nondistended. MUSCULOSKELETAL: No cyanosis, or edema. BACK: Nontender without obvious deformity. No CVA tenderness. - Urinary Catheter Management Indwelling Urethral Catheter Cath placed during this visit: yes, but has since been removed by the nurse Reason for continuing: Decision to DC catheter Removal date: 08/07/18 Removal time: 18:00 Results 09/14/18 06:25 09/17/18 08:57 Comprehensive Metabolic Panel 09/17/18 Range/Units 08:57 Creatinine 1.07 H (0.50-1.00) mg/dL Intake and Output 09/17/18 09/17/18 09/17/18 06:59 14:59 22:59 Intake Total 980 / 980 100 / 100 100 / 100 Balance 980 / 980 100 / 100 100 / 100 Intake: IV 740 / 740 100 / 100 100 / 100 Azactam Inj 2 GM In NS Inj 100 200 / 200 100 / 100 100 / 100 ML @ 100 mls/hr IV.SIG Q6H [facility] Rx#:[id number] Vancomycin Inj 1,500 MG In NS 540 / 540 Inj 500 ML @ 257.5 mls/hr IV. SIG Q18H [facility] Rx#:[id number] Oral 240 / 240 Other: # Voids 2 10 # Bowel Movements 1 Assessment and Plan - Assessment (1) ICD (implantable cardioverter-defibrillator) malfunction Code(s): T82.118A - Breakdown (mechanical) of other cardiac electronic device, initial encounter Status: Acute (2) Brugada syndrome Code(s): I49.8 - Other specified cardiac arrhythmias Status: Resolved - Plan 1) ICD dysfunction Patient states when I walked into the room "I don't know why it doesn't work , I didn't touch it" Has had multiple issues with ICD in the past Multiple removed for endocarditis Also has a history of manipulating the ICD, causing problems 2) ICD interrogated Device parameters changed Most likely lead dislodgement 3) Would consider pysch evaluation 4) Will discuss with Dr. Cervantes But has had multiple lead replacements/replacements Ultimately she appears to keep messing with the device Possible subcutaneous ICD, but has had before with problems Unsure of other options at this time
[2018-09-18] MEDS: Aztreonam Inj 2 GM in Sodium Chloride 0.9% Inj 100 ML IV.SIG SCH (05:13)
[2018-09-18] MEDS: Heparin - SQ 10,000 UNITS/ML Vial SQ SCH ×3 (05:13→21:11)
[2018-09-18] MEDS: Levothyroxine 112 MCG Tablet PO SCH (05:13)
[2018-09-18] MEDS: Heparin Central Flush 100 UNIT/ML 5 ML Vial IV.FLUSH SCH (08:32)
[2018-09-18] MEDS: Lisinopril 5 MG Tablet PO SCH (08:32)
[2018-09-18] MEDS: predniSONE 20 MG Tablet PO SCH (08:32)
[2018-09-18] MEDS: Sodium Bicarbonate 650 MG Tablet PO SCH ×3 (08:32→17:01)
[2018-09-18] MEDS: amLODIPine 5 MG Tablet PO SCH (08:33)
[2018-09-18] MEDS: Morphine Sulfate 15 MG SR Tablet PO SCH ×2 (08:33→20:46)
[2018-09-18] MEDS: Senna/Docusate Sodium 8.6/50 MG Tablet PO SCH ×2 (08:33→20:45)
[2018-09-18] MEDS: Spironolactone 25 MG Tablet PO SCH ×2 (08:36→17:01)
--- NOTE | 2018-09-18 09:41 | P.PNIM ---
Subjective Interval history: Patient says she is feeling frustrated. Denies any shortness of breath. Reports the forceful beating in her chest has improved however. Physical Exam Vital signs: Vital Signs 09/17/18 12:00 09/17/18 16:00 09/17/18 20:00 Temperature 98.0 F 98.0 F Pulse Rate 89 62 67 Respiratory Rate 20 18 Blood Pressure 109/71 118/56 L Pulse Oximetry 96 96 09/18/18 00:00 09/18/18 04:00 09/18/18 08:00 Temperature 98.6 F 98.7 F 98.2 F Pulse Rate 50 L 50 L 61 Respiratory Rate 16 16 17 Blood Pressure 127/60 112/57 L 118/70 Pulse Oximetry 98 98 96 Intake & Output 09/17/18 09/18/18 09/18/18 18:59 06:59 18:59 Intake Total 100 / 100 815 / 815 Balance 100 / 100 815 / 815 Intake: IV 100 / 100 815 / 815 Azactam Inj 2 GM In NS Inj 100 100 / 100 300 / 300 ML @ 100 mls/hr IV.SIG Q6H SHUKRI Rx#:[id number] Vancomycin Inj 1,500 MG In NS 515 / 515 Inj 500 ML @ 257.5 mls/hr IV. SIG Q18H SHUKRI Rx#:[id number] Other: # Voids 10 Date of Last Bowel Movement 09/14/18 # Bowel Movements 1 Narrative: GENERAL: Patient lying in bed. Appears comfortable. Alert and oriented x3. SKIN: Warm and dry. HEAD: Normocephalic. EYES: No scleral icterus. No injection or drainage. NECK: Supple, trachea midline. No JVD. CARDIOVASCULAR: Regular rate and rhythm. RESPIRATORY: Breath sounds equal bilaterally. No accessory muscle use. GASTROINTESTINAL: Abdomen soft, non-tender, nondistended. MUSCULOSKELETAL: No cyanosis, or edema. BACK: Nontender without obvious deformity. No CVA tenderness. - Urinary Catheter Management Indwelling Urethral Catheter Cath placed during this visit: yes, but has since been removed by the nurse Reason for continuing: Decision to DC catheter Removal date: 08/07/18 Removal time: 18:00 Results - Labs CBC & Chem 7: 09/14/18 06:25 09/17/18 08:57 Laboratory Results - last 24 hr 09/17/18 08:57 Creatinine 1.07 H Estimated GFR 57 L Assessment and Plan - Assessment (1) Endocarditis of tricuspid valve Code(s): I36.8 - Other nonrheumatic tricuspid valve disorders Status: Acute (2) Brugada syndrome Code(s): I49.8 - Other specified cardiac arrhythmias Status: Resolved (3) Hypertension Code(s): I10 - Essential (primary) hypertension Status: Chronic (4) ICD (implantable cardioverter-defibrillator) malfunction Code(s): T82.118A - Breakdown (mechanical) of other cardiac electronic device, initial encounter Status: Acute (5) Medical non-compliance Code(s): Z91.19 - Patient's noncompliance with other medical treatment and regimen Status: Acute (6) SLE (systemic lupus erythematosus) Code(s): M32.9 - Systemic lupus erythematosus, unspecified Status: Chronic (7) Chronic pain Code(s): G89.29 - Other chronic pain Status: Chronic (8) Acute kidney injury superimposed on CKD Code(s): N17.9 - Acute kidney failure, unspecified; N18.9 - Chronic kidney disease, unspecified Status: Acute - Plan 42-year-old female with History of chronic pain syndrome Possible seizures -Continue with morphine slow release 30 mg at night and 15 mg during the day. DC IV Morphine -As needed Valium 10 mg p.o. every 8 hours- 5 mg po q8 prn AICD malfunction/probable dislodged pacemaker lead, status post lead extraction and placement of new leads 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 2D echo shows tricuspid valve endocarditis, ID following-antibiotics as below CVVH started 08/03 due to severe acidosis, now transition to HD Prior ICD pocket infection in December 2017 and February 2018. Recently replaced by Dr. Cervantes. 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 To complete abx 09/17/18 = 09/17. Plan for discharge tomorrow after completing antibiotics today. = 09/18. Discontinue antibiotics having completed treatment course. Cardiology consulted for lead dislodgment. Essential hypertension. - continue Amlodipine PM wires dislodged- 08/25 - PM interrogated -per TJ - [employer] rep- wires are all dislodged- occasionally capturing Cardiology consulted- Dr. Edinson Andrade -s/p pacemaker revision (08/29) = 09/17. Patient with heaving involuntary chest motions. Will check EKG. Reconsult cardiology. = 09/18. Status post lead dislodgment again. Psychiatry consulted. Cardiology following. Follow-up recommendations. Tricuspid valve endocarditis History of ICD pocket infection most recently with MRSA February 2018. She has undergone device removal on 2 prior occasions. Most recently was removed in February 2018 with wound VAC placement. Device replaced 06/27/18. 2D echo showed tricuspid valve endocarditis while bld cx's are neg -Continue vancomycin, aztreonam per ID . To complete abx 09/17/18 Yeast vaginitis-resolved - s/p diflucan dose; likely 2/2 immunosupression 2/2 steroids Crohn's disease -follow-up with [facility] gastroenterology in the end of August -continue PO steroids Menorrhagia, patient reports is a chronic problem. Hasn't followed up with gynecology in over a year. Endometriosis -h/h stable, f/u outpt w/ obstetrician gynecologist Chronic kidney disease stage III -Nephrology following; Currently patient has a right femoral Vas-Cath. -Continue Aldactone, potassium replacement and sodium bicarb Hypokalemia -replace as needed Hypernatremia -Improved Systemic lupus erythematosus On chronic steroids -Tapered down from stress dose steroids to chronic baseline dosing Chronic anemia Thrombocytopenia -H&H currently stable, continue to monitor. Hypothyroidism -Continue Synthroid Insomnia continue melatonin Labile mood. per previous notes Patient refusing to be seen by psychiatry doctor. [place]'s dx likely. patient is noted on/off disrupting new AICD as noted with pauses, labs are normal , lytes are normal -continue to monitor PROPH: SCDs for DVT prophylaxis and heparin 5000 units subcu every 8 Protonix 40 mg daily for stress ulcer prophylaxis. Discharge Planning: Patient completed antibiotics 09/17. Pacemaker lead dislodgment noted on 09/17. Pending cardiology re-evaluation for pacemaker. Pending psychiatry evaluation. (3) Hypertension Qualifiers: Hypertension type: essential hypertension Qualified Code(s): I10 - Essential (primary) hypertension (6) SLE (systemic lupus erythematosus) Qualifiers: Systemic lupus erythematosus type: unspecified (7) Chronic pain Qualifiers: Chronic pain type: other chronic pain Qualified Code(s): G89.29 - Other chronic pain
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
--- NOTE | 2018-09-18 15:13 | ECG ---
Date Performed: 09/17/2018 Time Performed: 13:27:47 PTAGE: 42 years EKG: NORMAL Sinus rhythm RANDOM PACING THAT IS NONCONDUCTIVE NORMAL ECG Compared to PREVIOUS TRACING , patient now appears to have nonconducted pacer spikes, or artifact. Cl inical correlation requested. PREVIOUS TRACIN08/30/2018 17.55 DOCTOR: Bita Bal Interpretating Date/Time 09/18/2018 15:11:33
[2018-09-18] MEDS: LORazepam 1 MG Tablet PO SCH (20:45)
[2018-09-18] MEDS: Melatonin 5 MG Tablet PO SCH (20:46)
--- NOTE | 2018-09-18 23:15 | P.PNCA ---
Subjective Interval history: Continues to state without me asking that she did not mess with her ICD Feeling better today Medications and Allergies Active Medications: Active Medications Acetaminophen (Tylenol) 650 mg PO Q6H PRN PRN Reason: PAIN 1-10 AND/OR FEVER >101F Albuterol (Albuterol Neb (Prn)) 2.5 mg NEB Q2HR NEB PRN PRN Reason: SHORTNESS OF BREATH/WHEEZING Amlodipine Besylate (Norvasc) 2.5 mg PO DAILY [facility] Last Admin: 09/18/18 08:33 Dose: 2.5 mg Bisacodyl (Dulcolax Supp) 10 mg RECTAL DAILY PRN PRN Reason: SEVERE CONSITIPATION Diazepam (Valium) 10 mg PO Q8H PRN PRN Reason: ANXIETY Last Admin: 09/18/18 16:45 Dose: 10 mg Heparin Sodium (Porcine) (Heparin Central Flush) 0 unit IV.FLUSH DAILY [facility] Last Admin: 09/18/18 08:32 Dose: 500 unit Heparin Sodium (Porcine) (Heparin Central Flush) 0 unit IV.FLUSH PRN PRN PRN Reason: Flush PICC Line Last Admin: 09/17/18 05:37 Dose: 200 unit Heparin Sodium (Porcine) (Heparin Inj) 5,000 units SQ Q8HR [facility] Last Admin: 09/18/18 21:11 Dose: 5,000 units Hydroxyzine HCl (Atarax) 50 mg PO HS PRN PRN Reason: INSOMNIA Last Admin: 09/18/18 21:11 Dose: 50 mg Protamine Sulfate 250 mg/ (Sodium Chloride) 250 mls @ 5 mls/hr IV.CONT TITRATE PRN; Protocol PRN Reason: REGIONAL HEPARINIZATION Lactulose (Lactulose Liq) 30 ml PO DAILY PRN PRN Reason: SEVERE CONSITIPATION Levothyroxine Sodium (Synthroid) 112 mcg PO DAILY@0600 [facility] Last Admin: 09/18/18 05:13 Dose: 112 mcg Lisinopril (Prinivil) 5 mg PO DAILY [facility] Last Admin: 09/18/18 08:32 Dose: 5 mg Lorazepam (Ativan) 0.5 mg PO HS [facility] Last Admin: 09/18/18 20:45 Dose: 0.5 mg Magnesium Oxide (Mag-Ox) 800 mg PO UNSCH PRN PRN Reason: For Magnesium 1.2 - 1.6 mg/dL Melatonin (Melatonin) 5 mg PO HS [facility] Last Admin: 09/18/18 20:46 Dose: 5 mg Miscellaneous (Pill Splitter) 1 each OTHER [facility] Last Admin: 08/27/18 21:16 Dose: 1 each Miscellaneous Information ([facility] Nursing Information) 1 each OTHER [facility] Morphine Sulfate (Oramorph Sr) 15 mg PO DAILY [facility] Last Admin: 09/18/18 08:33 Dose: 15 mg Morphine Sulfate (Oramorph Sr) 30 mg PO HS [facility] Last Admin: 09/18/18 20:46 Dose: 30 mg Ondansetron HCl (Zofran Inj) 4 mg IV.PUSH Q6H PRN PRN Reason: NAUSEA OR VOMITING Last Admin: 08/11/18 04:24 Dose: 4 mg Pantoprazole Sodium (Protonix) 40 mg PO DAILY [facility] Last Admin: 09/18/18 08:32 Dose: 40 mg Potassium Chloride (K-Dur) 20 meq PO BID [facility] Last Admin: 09/18/18 20:45 Dose: 20 meq Prednisone (Deltasone) 20 mg PO DAILY [facility] Last Admin: 09/18/18 08:32 Dose: 20 mg Senna/Docusate Sodium (Irais-Colace) 1 tab PO BID [facility] Last Admin: 09/18/18 20:45 Dose: Not Given Sennosides (Senokot) 17.2 mg PO Q12H PRN PRN Reason: Moderate Constipation Sodium Bicarbonate (Sodium Bicarbonate) 650 mg PO TID [facility] Last Admin: 09/18/18 17:01 Dose: 650 mg Sodium Chloride (Ns Flush) 2 ml IV.FLUSH BID [facility] Last Admin: 09/18/18 20:46 Dose: 2 ml Sodium Chloride (Ns Flush) 2 ml IV.FLUSH PRN PRN PRN Reason: FLUSH AFTER USING IV ACCESS Last Admin: 08/26/18 03:01 Dose: 2 ml Sodium Chloride (Ns Flush) 0 ml IV.FLUSH PRN PRN PRN Reason: FLUSH AFTER USING IV ACCESS Sodium Chloride (Ns Flush) 0 ml IV.FLUSH DAILY [facility] Last Admin: 09/18/18 08:37 Dose: Not Given Sodium Chloride (Ns Flush) 0 ml IV.FLUSH PRN PRN PRN Reason: Flush After Blood Draws Spironolactone (Aldactone) 12.5 mg PO BID@0900,1800 [facility] Last Admin: 09/18/18 17:01 Dose: 12.5 mg Allergies Allergy/AdvReac Type Severity Reaction Status Date / Time cephalexin Allergy Severe RASH,SWELLI Verified 07/13/18 17:57 NG Fish Containing Products Allergy Severe SWELLING Verified 07/13/18 17:57 IN THROAT, SOB ketorolac Allergy Severe RASH Verified 07/13/18 17:57 penicillin G Allergy Severe RASH,SWELLI Verified 07/13/18 17:57 NG prochlorperazine Allergy Mild DYSTONIC Verified 07/13/18 17:57 REACTION promethazine Allergy Mild DYSTONIC Verified 07/13/18 17:57 REACTION Home Medications Medication Instructions Recorded Confirmed Type levothyroxine [Synthroid] 112 mcg PO DAILY 05/08/18 08/16/18 History magnesium 100 mg PO QID 05/08/18 08/16/18 History pantoprazole [Protonix] 40 mg PO DAILY 05/08/18 08/16/18 History potassium chloride 40 meq PO TID 05/08/18 08/16/18 History potassium phosphate, monobasic 1,000 mg PO TID 05/08/18 08/16/18 History [K-Phos Original] prednisone 30 mg PO DAILY 05/08/18 08/16/18 History spironolactone 25 mg PO DAILY 05/08/18 08/16/18 History Physical Exam Vital signs: Vital Signs 09/18/18 00:00 09/18/18 04:00 09/18/18 08:00 Temperature 98.6 F 98.7 F 98.2 F Pulse Rate 50 L 50 L 54 L Respiratory Rate 16 16 17 Blood Pressure 127/60 112/57 L 118/70 Pulse Oximetry 98 98 96 09/18/18 12:00 09/18/18 16:00 Temperature 97.9 F 98.4 F Pulse Rate 78 58 L Respiratory Rate 18 18 Blood Pressure 104/64 107/67 Pulse Oximetry 98 98 Intake & Output 09/18/18 09/18/18 09/19/18 06:59 18:59 06:59 Intake Total 815 / 815 Balance 815 / 815 Intake: IV 815 / 815 Azactam Inj 2 GM In NS Inj 100 300 / 300 ML @ 100 mls/hr IV.SIG Q6H [facility] Rx#:[id number] Vancomycin Inj 1,500 MG In NS 515 / 515 Inj 500 ML @ 257.5 mls/hr IV. SIG Q18H [facility] Rx#:[id number] Other: # Voids 10 Date of Last Bowel Movement 09/14/18 # Bowel Movements 1 Narrative: GENERAL: Patient lying in bed. Appears comfortable. Alert and oriented x3. SKIN: Warm and dry. HEAD: Normocephalic. EYES: No scleral icterus. No injection or drainage. NECK: Supple, trachea midline. No JVD. CARDIOVASCULAR: Regular rate and rhythm. RESPIRATORY: Breath sounds equal bilaterally. No accessory muscle use. GASTROINTESTINAL: Abdomen soft, non-tender, nondistended. MUSCULOSKELETAL: No cyanosis, or edema. BACK: Nontender without obvious deformity. No CVA tenderness. - Urinary Catheter Management Indwelling Urethral Catheter Cath placed during this visit: yes, but has since been removed by the nurse Reason for continuing: Decision to DC catheter Removal date: 08/07/18 Removal time: 18:00 Results 09/14/18 06:25 09/17/18 08:57 Comprehensive Metabolic Panel 09/17/18 Range/Units 08:57 Creatinine 1.07 H (0.50-1.00) mg/dL Intake and Output 09/18/18 09/18/18 09/19/18 14:59 22:59 06:59 Other: # Voids 10 # Bowel Movements 1 Assessment and Plan - Assessment (1) ICD (implantable cardioverter-defibrillator) malfunction Code(s): T82.118A - Breakdown (mechanical) of other cardiac electronic device, initial encounter Status: Acute (2) Brugada syndrome Code(s): I49.8 - Other specified cardiac arrhythmias Status: Resolved - Plan 1) ICD dysfunction Patient states when I walked into the room "I don't know why it doesn't work , I didn't touch it" Has had multiple issues with ICD in the past Multiple removed for endocarditis Also has a history of manipulating the ICD, causing problems 2) ICD interrogated Device parameters changed Most likely lead dislodgement 3) Appreciate psych evaluation They recommend sitter to be placed in the room 4) Will discuss with Dr. Cervantes But has had multiple lead replacements/replacements Ultimately she appears to keep messing with the device Possible subcutaneous ICD, but has had before with problems Unsure of other options at this time
[2018-09-19] MEDS: Heparin - SQ 10,000 UNITS/ML Vial SQ SCH ×3 (05:54→21:25)
[2018-09-19] MEDS: Levothyroxine 112 MCG Tablet PO SCH (05:54)
[2018-09-19] MEDS: Morphine Sulfate 15 MG SR Tablet PO SCH ×2 (08:17→21:24)
[2018-09-19] MEDS: Heparin Central Flush 100 UNIT/ML 5 ML Vial IV.FLUSH SCH (08:17)
[2018-09-19] MEDS: amLODIPine 5 MG Tablet PO SCH (08:17)
[2018-09-19] MEDS: predniSONE 20 MG Tablet PO SCH (08:17)
[2018-09-19] MEDS: Sodium Bicarbonate 650 MG Tablet PO SCH ×3 (08:17→17:02)
[2018-09-19] MEDS: Senna/Docusate Sodium 8.6/50 MG Tablet PO SCH ×2 (08:18→21:24)
[2018-09-19] MEDS: Spironolactone 25 MG Tablet PO SCH ×2 (08:22→17:02)
[2018-09-19] MEDS: Lisinopril 5 MG Tablet PO SCH (08:23)
--- NOTE | 2018-09-19 14:13 | P.PNCA ---
Subjective Interval history: No events overnight Mother at the bedside Medications and Allergies Active Medications: Active Medications Acetaminophen (Tylenol) 650 mg PO Q6H PRN PRN Reason: PAIN 1-10 AND/OR FEVER >101F Albuterol (Albuterol Neb (Prn)) 2.5 mg NEB Q2HR NEB PRN PRN Reason: SHORTNESS OF BREATH/WHEEZING Amlodipine Besylate (Norvasc) 2.5 mg PO DAILY [facility] Last Admin: 09/19/18 08:17 Dose: Not Given Bisacodyl (Dulcolax Supp) 10 mg RECTAL DAILY PRN PRN Reason: SEVERE CONSITIPATION Diazepam (Valium) 10 mg PO Q8H PRN PRN Reason: ANXIETY Last Admin: 09/19/18 08:49 Dose: 10 mg Heparin Sodium (Porcine) (Heparin Central Flush) 0 unit IV.FLUSH DAILY [facility] Last Admin: 09/19/18 08:17 Dose: 500 unit Heparin Sodium (Porcine) (Heparin Central Flush) 0 unit IV.FLUSH PRN PRN PRN Reason: Flush PICC Line Last Admin: 09/17/18 05:37 Dose: 200 unit Heparin Sodium (Porcine) (Heparin Inj) 5,000 units SQ Q8HR [facility] Last Admin: 09/19/18 13:15 Dose: 5,000 units Hydroxyzine HCl (Atarax) 50 mg PO HS PRN PRN Reason: INSOMNIA Last Admin: 09/18/18 21:11 Dose: 50 mg Protamine Sulfate 250 mg/ (Sodium Chloride) 250 mls @ 5 mls/hr IV.CONT TITRATE PRN; Protocol PRN Reason: REGIONAL HEPARINIZATION Lactulose (Lactulose Liq) 30 ml PO DAILY PRN PRN Reason: SEVERE CONSITIPATION Levothyroxine Sodium (Synthroid) 112 mcg PO DAILY@0600 [facility] Last Admin: 09/19/18 05:54 Dose: 112 mcg Lisinopril (Prinivil) 5 mg PO DAILY [facility] Last Admin: 09/19/18 08:23 Dose: Not Given Lorazepam (Ativan) 0.5 mg PO HS [facility] Last Admin: 09/18/18 20:45 Dose: 0.5 mg Magnesium Oxide (Mag-Ox) 800 mg PO UNSCH PRN PRN Reason: For Magnesium 1.2 - 1.6 mg/dL Melatonin (Melatonin) 5 mg PO HS [facility] Last Admin: 09/18/18 20:46 Dose: 5 mg Miscellaneous (Pill Splitter) 1 each OTHER UNSCH [facility] Last Admin: 08/27/18 21:16 Dose: 1 each Miscellaneous Information (Mis Nursing Information) [facility] Morphine Sulfate (Oramorph Sr) 15 mg PO DAILY [facility] Last Admin: 09/19/18 08:17 Dose: 15 mg Morphine Sulfate (Oramorph Sr) 30 mg PO HS [facility] Last Admin: 09/18/18 20:46 Dose: 30 mg Ondansetron HCl (Zofran Inj) 4 mg IV.PUSH Q6H PRN PRN Reason: NAUSEA OR VOMITING Last Admin: 08/11/18 04:24 Dose: 4 mg Pantoprazole Sodium (Protonix) 40 mg PO DAILY [facility] Last Admin: 09/19/18 08:17 Dose: 40 mg Potassium Chloride (K-Dur) 20 meq PO BID [facility] Last Admin: 09/19/18 08:17 Dose: 20 meq Prednisone (Deltasone) 20 mg PO DAILY [facility] Last Admin: 09/19/18 08:17 Dose: 20 mg Senna/Docusate Sodium (Irais-Colace) 1 tab PO BID [facility] Last Admin: 09/19/18 08:18 Dose: Not Given Sennosides (Senokot) 17.2 mg PO Q12H PRN PRN Reason: Moderate Constipation Sodium Bicarbonate (Sodium Bicarbonate) 650 mg PO TID [facility] Last Admin: 09/19/18 12:21 Dose: 650 mg Sodium Chloride (Ns Flush) 2 ml IV.FLUSH BID [facility] Last Admin: 09/19/18 08:18 Dose: 2 ml Sodium Chloride (Ns Flush) 2 ml IV.FLUSH PRN PRN PRN Reason: FLUSH AFTER USING IV ACCESS Last Admin: 08/26/18 03:01 Dose: 2 ml Sodium Chloride (Ns Flush) 0 ml IV.FLUSH PRN PRN PRN Reason: FLUSH AFTER USING IV ACCESS Sodium Chloride (Ns Flush) 0 ml IV.FLUSH DAILY [facility] Last Admin: 09/19/18 08:18 Dose: Not Given Sodium Chloride (Ns Flush) 0 ml IV.FLUSH PRN PRN PRN Reason: Flush After Blood Draws Spironolactone (Aldactone) 12.5 mg PO BID@0900,1800 [facility] Last Admin: 09/19/18 08:22 Dose: 12.5 mg Allergies Allergy/AdvReac Type Severity Reaction Status Date / Time cephalexin Allergy Severe RASH,SWELLI Verified 07/13/18 17:57 NG Fish Containing Products Allergy Severe SWELLING Verified 07/13/18 17:57 IN THROAT, SOB ketorolac Allergy Severe RASH Verified 07/13/18 17:57 penicillin G Allergy Severe RASH,SWELLI Verified 07/13/18 17:57 NG prochlorperazine Allergy Mild DYSTONIC Verified 07/13/18 17:57 REACTION promethazine Allergy Mild DYSTONIC Verified 07/13/18 17:57 REACTION Home Medications Medication Instructions Recorded Confirmed Type levothyroxine [Synthroid] 112 mcg PO DAILY 05/08/18 08/16/18 History magnesium 100 mg PO QID 05/08/18 08/16/18 History pantoprazole [Protonix] 40 mg PO DAILY 05/08/18 08/16/18 History potassium chloride 40 meq PO TID 05/08/18 08/16/18 History potassium phosphate, monobasic 1,000 mg PO TID 05/08/18 08/16/18 History [K-Phos Original] prednisone 30 mg PO DAILY 05/08/18 08/16/18 History spironolactone 25 mg PO DAILY 05/08/18 08/16/18 History Physical Exam Vital signs: Vital Signs 09/18/18 16:00 09/18/18 20:00 09/18/18 20:05 Temperature 98.4 F 98.8 F Pulse Rate 58 L 59 L 61 Respiratory Rate 18 20 Blood Pressure 107/67 117/61 Pulse Oximetry 98 09/19/18 00:00 09/19/18 03:59 09/19/18 04:00 Temperature 98.1 F 97.9 F Pulse Rate 53 L 66 70 Respiratory Rate 18 18 Blood Pressure 111/58 L 96/53 L Pulse Oximetry 99 99 09/19/18 08:00 09/19/18 12:00 Temperature 98.2 F 98.7 F Pulse Rate 82 76 Respiratory Rate 17 17 Blood Pressure 106/72 97/53 L Pulse Oximetry 97 98 Intake & Output 09/18/18 09/19/18 09/19/18 18:59 06:59 18:59 Weight 77.9 kg Other: # Voids 10 3 # Bowel Movements 1 Narrative: GENERAL: Patient lying in bed. Appears comfortable. Alert and oriented x3. SKIN: Warm and dry. HEAD: Normocephalic. EYES: No scleral icterus. No injection or drainage. NECK: Supple, trachea midline. No JVD. CARDIOVASCULAR: Regular rate and rhythm. RESPIRATORY: Breath sounds equal bilaterally. No accessory muscle use. GASTROINTESTINAL: Abdomen soft, non-tender, nondistended. MUSCULOSKELETAL: No cyanosis, or edema. BACK: Nontender without obvious deformity. No CVA tenderness. - Urinary Catheter Management Indwelling Urethral Catheter Cath placed during this visit: yes, but has since been removed by the nurse Reason for continuing: Decision to DC catheter Removal date: 08/07/18 Removal time: 18:00 Results 09/14/18 06:25 09/17/18 08:57 Intake and Output 09/18/18 09/19/18 09/19/18 22:59 06:59 14:59 Other: # Voids 10 3 # Bowel Movements 1 Weight 77.9 kg Assessment and Plan - Assessment (1) ICD (implantable cardioverter-defibrillator) malfunction Code(s): T82.118A - Breakdown (mechanical) of other cardiac electronic device, initial encounter Status: Acute (2) Brugada syndrome Code(s): I49.8 - Other specified cardiac arrhythmias Status: Resolved - Plan 1) ICD dysfunction Patient states when I walked into the room "I don't know why it doesn't work , I didn't touch it" Has had multiple issues with ICD in the past Multiple removed for endocarditis Also has a history of manipulating the ICD, causing problems Concern for Factitious Disorder per Psych 2) ICD interrogated Device parameters changed Most likely lead dislodgement 3) Appreciate psych evaluation They recommend sitter to be placed in the room 4) Will discuss with Dr. Cervantes But has had multiple lead replacements/replacements Ultimately she appears to keep messing with the device Possible subcutaneous ICD, but has had before with problems Unsure of other options at this time Dr. Cervantes recommends transferring to [facility] for other considerations
--- NOTE | 2018-09-19 17:33 | P.PNIM ---
Subjective Interval history: No acute events per nursing. Physical Exam Vital signs: Vital Signs 09/18/18 20:00 09/18/18 20:05 09/19/18 00:00 Temperature 98.8 F 98.1 F Pulse Rate 59 L 61 53 L Respiratory Rate 20 18 Blood Pressure 117/61 111/58 L Pulse Oximetry 99 09/19/18 03:59 09/19/18 04:00 09/19/18 08:00 Temperature 97.9 F 98.2 F Pulse Rate 66 70 82 Respiratory Rate 18 17 Blood Pressure 96/53 L 106/72 Pulse Oximetry 99 97 09/19/18 12:00 09/19/18 16:00 Temperature 98.7 F 98.4 F Pulse Rate 76 78 Respiratory Rate 17 17 Blood Pressure 97/53 L 99/63 L Pulse Oximetry 98 96 Intake & Output 09/18/18 09/19/18 09/19/18 18:59 06:59 18:59 Weight 77.9 kg Other: # Voids 10 3 # Bowel Movements 1 Narrative: GENERAL: Patient lying in bed. Appears comfortable. SKIN: Warm and dry. HEAD: Normocephalic. EYES: No scleral icterus. No injection or drainage. NECK: Supple, trachea midline. No JVD. CARDIOVASCULAR: Regular rate and rhythm. RESPIRATORY: Breath sounds equal bilaterally. No accessory muscle use. GASTROINTESTINAL: Abdomen soft, non-tender, nondistended. MUSCULOSKELETAL: No cyanosis, or edema. BACK: Nontender without obvious deformity. No CVA tenderness. - Urinary Catheter Management Indwelling Urethral Catheter Cath placed during this visit: yes, but has since been removed by the nurse Reason for continuing: Decision to DC catheter Removal date: 08/07/18 Removal time: 18:00 Results - Labs CBC & Chem 7: 09/14/18 06:25 09/17/18 08:57 Assessment and Plan - Assessment (1) Endocarditis of tricuspid valve Code(s): I36.8 - Other nonrheumatic tricuspid valve disorders Status: Acute (2) Brugada syndrome Code(s): I49.8 - Other specified cardiac arrhythmias Status: Resolved (3) Hypertension Code(s): I10 - Essential (primary) hypertension Status: Chronic (4) ICD (implantable cardioverter-defibrillator) malfunction Code(s): T82.118A - Breakdown (mechanical) of other cardiac electronic device, initial encounter Status: Acute (5) Medical non-compliance Code(s): Z91.19 - Patient's noncompliance with other medical treatment and regimen Status: Acute (6) SLE (systemic lupus erythematosus) Code(s): M32.9 - Systemic lupus erythematosus, unspecified Status: Chronic (7) Chronic pain Code(s): G89.29 - Other chronic pain Status: Chronic (8) Acute kidney injury superimposed on CKD Code(s): N17.9 - Acute kidney failure, unspecified; N18.9 - Chronic kidney disease, unspecified Status: Acute - Plan 42-year-old female with History of chronic pain syndrome Possible seizures -Continue with morphine slow release 30 mg at night and 15 mg during the day. DC IV Morphine -As needed Valium 10 mg p.o. every 8 hours- 5 mg po q8 prn AICD malfunction/probable dislodged pacemaker lead, status post lead extraction and placement of new leads 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 2D echo shows tricuspid valve endocarditis, ID following-antibiotics as below CVVH started 08/03 due to severe acidosis, now transition to HD Prior ICD pocket infection in December 2017 and February 2018. Recently replaced by Dr. Cervantes. Per device rep she did not follow-up device check -Management per drift miner -Continue vancomycin, aztreonam per ID. To complete abx 09/17/18 = 09/17. Plan for discharge tomorrow after completing antibiotics today. = 09/18. Discontinue antibiotics having completed treatment course. Cardiology consulted for lead dislodgment. = 09/19 due to multiple lead dislodgment, cardiology pursuing possible transfer to tertiary care center. Essential hypertension. - continue Amlodipine PM wires dislodged- 08/25 - PM interrogated -per TJ - [employer] rep- wires are all dislodged- occasionally capturing Cardiology consulted- Dr. Edinson Andrade -s/p pacemaker revision (08/29) = 09/17. Patient with heaving involuntary chest motions. Will check EKG. Reconsult cardiology. = 09/18. Status post lead dislodgment again. Psychiatry consulted. Cardiology following. Follow-up recommendations. Tricuspid valve endocarditis History of ICD pocket infection most recently with MRSA February 2018. She has undergone device removal on 2 prior occasions. Most recently was removed in February 2018 with wound VAC placement. Device replaced 06/27/18. 2D echo showed tricuspid valve endocarditis while bld cx's are neg -Continue vancomycin, aztreonam per ID . To complete abx 09/17/18 Yeast vaginitis-resolved - s/p diflucan dose; likely 2/2 immunosupression 2/2 steroids Crohn's disease -follow-up with [facility] gastroenterology in the end of August -continue PO steroids Menorrhagia, patient reports is a chronic problem. Hasn't followed up with gynecology in over a year. 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 -Continue Aldactone, potassium replacement and sodium bicarb Hypokalemia -replace as needed Hypernatremia -Improved Systemic lupus erythematosus On chronic steroids -Tapered down from stress dose steroids to chronic baseline dosing Chronic anemia Thrombocytopenia -H&H currently stable, continue to monitor. Hypothyroidism -Continue Synthroid Insomnia continue melatonin Labile mood. per previous notes Patient refusing to be seen by psychiatry doctor. [place]en's dx likely. patient is noted on/off disrupting new AICD as noted with pauses, labs are normal , lytes are normal -continue to monitor PROPH: SCDs for DVT prophylaxis and heparin 5000 units subcu every 8 Protonix 40 mg daily for stress ulcer prophylaxis. Discharge Planning: Patient completed antibiotics 09/17. Pacemaker lead dislodgment noted on 09/17. Pending cardiology re-evaluation for pacemaker. Pending psychiatry evaluation. (3) Hypertension Qualifiers: Hypertension type: essential hypertension Qualified Code(s): I10 - Essential (primary) hypertension (6) SLE (systemic lupus erythematosus) Qualifiers: Systemic lupus erythematosus type: unspecified (7) Chronic pain Qualifiers: Chronic pain type: other chronic pain Qualified Code(s): G89.29 - Other chronic pain
[2018-09-19] MEDS: LORazepam 1 MG Tablet PO SCH (21:24)
[2018-09-19] MEDS: Melatonin 5 MG Tablet PO SCH (21:25)
[2018-09-20] MEDS: Heparin - SQ 10,000 UNITS/ML Vial SQ SCH ×3 (05:30→21:00)
[2018-09-20] MEDS: Levothyroxine 112 MCG Tablet PO SCH (05:30)
[2018-09-20] MEDS: Lisinopril 5 MG Tablet PO SCH (08:53)
[2018-09-20] MEDS: predniSONE 20 MG Tablet PO SCH (08:53)
[2018-09-20] MEDS: Spironolactone 25 MG Tablet PO SCH ×2 (08:53→17:32)
[2018-09-20] MEDS: Morphine Sulfate 15 MG SR Tablet PO SCH ×2 (08:54→20:44)
[2018-09-20] MEDS: Sodium Bicarbonate 650 MG Tablet PO SCH ×3 (08:54→17:33)
[2018-09-20] MEDS: amLODIPine 5 MG Tablet PO SCH (08:54)
[2018-09-20] MEDS: Heparin Central Flush 100 UNIT/ML 5 ML Vial IV.FLUSH SCH (08:55)
[2018-09-20] MEDS: Senna/Docusate Sodium 8.6/50 MG Tablet PO SCH ×2 (08:55→20:45)
[2018-09-20] MEDS: Melatonin 5 MG Tablet PO SCH (20:45)
[2018-09-20] MEDS: LORazepam 1 MG Tablet PO SCH (20:45)
--- NOTE | 2018-09-20 22:15 | P.PNIM ---
Subjective Interval history: patient says she is feeling alright today. continues with pain. Physical Exam Vital signs: Vital Signs 09/19/18 22:49 09/20/18 00:00 09/20/18 04:00 Temperature 98.1 F 97.8 F Pulse Rate 74 62 67 Respiratory Rate 18 18 Blood Pressure 115/63 105/61 Pulse Oximetry 98 98 09/20/18 08:00 09/20/18 12:00 09/20/18 16:00 Temperature 98.1 F 98.2 F 98.2 F Pulse Rate 56 L 62 80 Respiratory Rate 16 14 18 Blood Pressure 100/59 L 97/56 L 115/61 Pulse Oximetry 96 97 98 09/20/18 20:00 Temperature 98.2 F Pulse Rate 94 H Respiratory Rate 18 Blood Pressure 130/74 Pulse Oximetry 98 Intake & Output 09/20/18 09/20/18 09/21/18 06:59 18:59 06:59 Intake Total 1604 / 1604 720 / 720 Balance 1604 / 1604 720 / 720 Weight 76.7 kg Intake: Oral 1604 / 1604 720 / 720 Other: # Voids 10 # Urine Diapers 10 Date of Last Bowel Movement 09/20/18 # Bowel Movements 1 0 Narrative: GENERAL: Patient lying in bed. Appears comfortable. no change on exam. SKIN: Warm and dry. HEAD: Normocephalic. EYES: No scleral icterus. No injection or drainage. NECK: Supple, trachea midline. No JVD. CARDIOVASCULAR: Regular rate and rhythm. RESPIRATORY: Breath sounds equal bilaterally. No accessory muscle use. GASTROINTESTINAL: Abdomen soft, non-tender, nondistended. MUSCULOSKELETAL: No cyanosis, or edema. BACK: Nontender without obvious deformity. No CVA tenderness. - Urinary Catheter Management Indwelling Urethral Catheter Cath placed during this visit: yes, but has since been removed by the nurse Reason for continuing: Decision to DC catheter Removal date: 08/07/18 Removal time: 18:00 Results - Labs CBC & Chem 7: 09/14/18 06:25 09/17/18 08:57 Assessment and Plan - Assessment (1) Endocarditis of tricuspid valve Code(s): I36.8 - Other nonrheumatic tricuspid valve disorders Status: Acute (2) Brugada syndrome Code(s): I49.8 - Other specified cardiac arrhythmias Status: Resolved (3) Hypertension Code(s): I10 - Essential (primary) hypertension Status: Chronic (4) ICD (implantable cardioverter-defibrillator) malfunction Code(s): T82.118A - Breakdown (mechanical) of other cardiac electronic device, initial encounter Status: Acute (5) Medical non-compliance Code(s): Z91.19 - Patient's noncompliance with other medical treatment and regimen Status: Acute (6) SLE (systemic lupus erythematosus) Code(s): M32.9 - Systemic lupus erythematosus, unspecified Status: Chronic (7) Chronic pain Code(s): G89.29 - Other chronic pain Status: Chronic (8) Acute kidney injury superimposed on CKD Code(s): N17.9 - Acute kidney failure, unspecified; N18.9 - Chronic kidney disease, unspecified Status: Acute - Plan 42-year-old female with History of chronic pain syndrome Possible seizures -Continue with morphine slow release 30 mg at night and 15 mg during the day. DC IV Morphine -As needed Valium 10 mg p.o. every 8 hours- 5 mg po q8 prn AICD malfunction/probable dislodged pacemaker lead, status post lead extraction and placement of new leads 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 2D echo shows tricuspid valve endocarditis, ID following-antibiotics as below CVVH started 08/03 due to severe acidosis, now transition to HD Prior ICD pocket infection in December 2017 and February 2018. Recently replaced by Dr. Cervantes. Per device rep she did not follow-up device check -Management per radiation officer -Continue vancomycin, aztreonam per ID. To complete abx 09/17/18 = 09/17. Plan for discharge tomorrow after completing antibiotics today. = 09/18. Discontinue antibiotics having completed treatment course. Cardiology consulted for lead dislodgment. = 09/19 due to multiple lead dislodgment, cardiology pursuing possible transfer to tertiary care center. =09/20. Follow cardiology recommendations. Appreciate assistance. Essential hypertension. - continue Amlodipine PM wires dislodged- 08/25 - PM interrogated -per TJ - [employer] rep- wires are all dislodged- occasionally capturing Cardiology consulted- Dr. Edinson Andrade -s/p pacemaker revision (08/29) = 09/17. Patient with heaving involuntary chest motions. Will check EKG. Reconsult cardiology. = 09/18. Status post lead dislodgment again. Psychiatry consulted. Cardiology following. Follow-up recommendations. Tricuspid valve endocarditis History of ICD pocket infection most recently with MRSA February 2018. She has undergone device removal on 2 prior occasions. Most recently was removed in February 2018 with wound VAC placement. Device replaced 06/27/18. 2D echo showed tricuspid valve endocarditis while bld cx's are neg -Continue vancomycin, aztreonam per ID . To complete abx 09/17/18 Yeast vaginitis-resolved - s/p diflucan dose; likely 2/2 immunosupression 2/2 steroids Crohn's disease -follow-up with [facility] gastroenterology in the end of August -continue PO steroids Menorrhagia, patient reports is a chronic problem. Hasn't followed up with gynecology in over a year. 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 -Continue Aldactone, potassium replacement and sodium bicarb Hypokalemia -replace as needed Hypernatremia -Improved Systemic lupus erythematosus On chronic steroids -Tapered down from stress dose steroids to chronic baseline dosing Chronic anemia Thrombocytopenia -H&H currently stable, continue to monitor. Hypothyroidism -Continue Synthroid Insomnia continue melatonin Labile mood. per previous notes Patient refusing to be seen by psychiatry doctor. 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 patient is noted on/off disrupting new AICD as noted with pauses, labs are normal , lytes are normal -continue to monitor PROPH: SCDs for DVT prophylaxis and heparin 5000 units subcu every 8 Protonix 40 mg daily for stress ulcer prophylaxis. Discharge Planning: Patient completed antibiotics 09/17. Pacemaker lead dislodgment noted on 09/17. Pending cardiology re-evaluation for pacemaker. Pending psychiatry evaluation. (3) Hypertension Qualifiers: Hypertension type: essential hypertension Qualified Code(s): I10 - Essential (primary) hypertension (6) SLE (systemic lupus erythematosus) Qualifiers: Systemic lupus erythematosus type: unspecified (7) Chronic pain Qualifiers: Chronic pain type: other chronic pain Qualified Code(s): G89.29 - Other chronic pain
[2018-09-21] MEDS: Heparin - SQ 10,000 UNITS/ML Vial SQ SCH ×3 (06:25→21:17)
[2018-09-21] MEDS: Levothyroxine 112 MCG Tablet PO SCH (06:25)
[2018-09-21] MEDS: Sodium Bicarbonate 650 MG Tablet PO SCH ×3 (09:22→17:48)
[2018-09-21] MEDS: Spironolactone 25 MG Tablet PO SCH ×2 (09:22→17:48)
[2018-09-21] MEDS: Heparin Central Flush 100 UNIT/ML 5 ML Vial IV.FLUSH SCH (09:22)
[2018-09-21] MEDS: amLODIPine 5 MG Tablet PO SCH (09:23)
[2018-09-21] MEDS: Morphine Sulfate 15 MG SR Tablet PO SCH ×2 (09:23→20:27)
[2018-09-21] MEDS: Lisinopril 5 MG Tablet PO SCH (09:23)
[2018-09-21] MEDS: predniSONE 20 MG Tablet PO SCH (09:23)
[2018-09-21] MEDS: Senna/Docusate Sodium 8.6/50 MG Tablet PO SCH ×2 (09:24→20:29)
--- NOTE | 2018-09-21 18:35 | P.PNIM ---
Subjective Interval history: Patient says that chest pain continues unchanged from previous visits. Denies any shortness of breath. Physical Exam Vital signs: Vital Signs 09/20/18 20:00 09/21/18 00:00 09/21/18 00:03 Temperature 98.2 F 99.1 F Pulse Rate 82 83 92 H Respiratory Rate 18 19 Blood Pressure 130/74 130/64 Pulse Oximetry 98 98 09/21/18 03:55 09/21/18 04:00 09/21/18 08:00 Temperature 98.1 F 97.7 F Pulse Rate 86 78 58 L Respiratory Rate 14 18 Blood Pressure 95/54 L 112/82 Pulse Oximetry 96 96 09/21/18 12:00 09/21/18 16:00 Temperature 98.3 F 98.2 F Pulse Rate 101 H 88 Respiratory Rate 18 18 Blood Pressure 108/83 112/72 Pulse Oximetry 98 98 Intake & Output 09/20/18 09/21/18 09/21/18 18:59 06:59 18:59 Intake Total 720 / 720 240 / 240 480 / 480 Balance 720 / 720 240 / 240 480 / 480 Weight 77.4 kg Intake: Oral 720 / 720 240 / 240 480 / 480 Other: # Voids 3 4 # Urine Diapers 10 Date of Last Bowel Movement 09/20/18 09/20/18 # Bowel Movements 0 1 Narrative: GENERAL: Patient lying in bed. Appears comfortable. no changes SKIN: Warm and dry. HEAD: Normocephalic. EYES: No scleral icterus. No injection or drainage. NECK: Supple, trachea midline. No JVD. CARDIOVASCULAR: Regular rate and rhythm. RESPIRATORY: Breath sounds equal bilaterally. No accessory muscle use. GASTROINTESTINAL: Abdomen soft, non-tender, nondistended. MUSCULOSKELETAL: No cyanosis, or edema. BACK: Nontender without obvious deformity. No CVA tenderness. - Urinary Catheter Management Indwelling Urethral Catheter Cath placed during this visit: yes, but has since been removed by the nurse Reason for continuing: Decision to DC catheter Removal date: 08/07/18 Removal time: 18:00 Results - Labs CBC & Chem 7: 09/14/18 06:25 09/17/18 08:57 Assessment and Plan - Assessment (1) Endocarditis of tricuspid valve Code(s): I36.8 - Other nonrheumatic tricuspid valve disorders Status: Acute (2) Brugada syndrome Code(s): I49.8 - Other specified cardiac arrhythmias Status: Resolved (3) Hypertension Code(s): I10 - Essential (primary) hypertension Status: Chronic (4) ICD (implantable cardioverter-defibrillator) malfunction Code(s): T82.118A - Breakdown (mechanical) of other cardiac electronic device, initial encounter Status: Acute (5) Medical non-compliance Code(s): Z91.19 - Patient's noncompliance with other medical treatment and regimen Status: Acute (6) SLE (systemic lupus erythematosus) Code(s): M32.9 - Systemic lupus erythematosus, unspecified Status: Chronic (7) Chronic pain Code(s): G89.29 - Other chronic pain Status: Chronic (8) Acute kidney injury superimposed on CKD Code(s): N17.9 - Acute kidney failure, unspecified; N18.9 - Chronic kidney disease, unspecified Status: Acute - Plan 42-year-old female with History of chronic pain syndrome Possible seizures -Continue with morphine slow release 30 mg at night and 15 mg during the day. DC IV Morphine -As needed Valium 10 mg p.o. every 8 hours- 5 mg po q8 prn AICD malfunction/probable dislodged pacemaker lead, status post lead extraction and placement of new leads 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 2D echo shows tricuspid valve endocarditis, ID following-antibiotics as below CVVH started 08/03 due to severe acidosis, now transition to HD Prior ICD pocket infection in December 2017 and February 2018. Recently replaced by Dr. Cervantes. Per device rep she did not follow-up device check -Management per body joiner -Continue vancomycin, aztreonam per ID. To complete abx 09/17/18 = 09/17. Plan for discharge tomorrow after completing antibiotics today. = 09/18. Discontinue antibiotics having completed treatment course. Cardiology consulted for lead dislodgment. = 09/19 due to multiple lead dislodgment, cardiology pursuing possible transfer to tertiary care center. =09/20. Follow cardiology recommendations. Appreciate assistance. = 09/21. Discussed with electrophysiology. Follow-up recommendations. Essential hypertension. - continue Amlodipine PM wires dislodged- 08/25 - PM interrogated -per TJ - [employer] rep- wires are all dislodged- occasionally capturing Cardiology consulted- Dr. Edinson Andrade -s/p pacemaker revision (08/29) = 09/17. Patient with heaving involuntary chest motions. Will check EKG. Reconsult cardiology. = 09/18. Status post lead dislodgment again. Psychiatry consulted. Cardiology following. Follow-up recommendations. Tricuspid valve endocarditis History of ICD pocket infection most recently with MRSA February 2018. She has undergone device removal on 2 prior occasions. Most recently was removed in February 2018 with wound VAC placement. Device replaced 06/27/18. 2D echo showed tricuspid valve endocarditis while bld cx's are neg -Continue vancomycin, aztreonam per ID . To complete abx 09/17/18 Yeast vaginitis-resolved - s/p diflucan dose; likely 2/2 immunosupression 2/2 steroids Crohn's disease -follow-up with [facility] gastroenterology in the end of August -continue PO steroids Menorrhagia, patient reports is a chronic problem. Hasn't followed up with gynecology in over a year. 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 -Continue Aldactone, potassium replacement and sodium bicarb Hypokalemia -replace as needed Hypernatremia -Improved Systemic lupus erythematosus On chronic steroids -Tapered down from stress dose steroids to chronic baseline dosing Chronic anemia Thrombocytopenia -H&H currently stable, continue to monitor. Hypothyroidism -Continue Synthroid Insomnia continue melatonin Labile mood. per previous notes Patient refusing to be seen by psychiatry doctor. [place]'s dx likely. patient is noted on/off disrupting new AICD as noted with pauses, labs are normal , lytes are normal -continue to monitor PROPH: SCDs for DVT prophylaxis and heparin 5000 units subcu every 8 Protonix 40 mg daily for stress ulcer prophylaxis. Discharge Planning: Patient completed antibiotics 09/17. Pacemaker lead dislodgment noted on 09/17. -Possible transfer to tertiary care center. = Follow-up cardiology recommendations. (3) Hypertension Qualifiers: Hypertension type: essential hypertension Qualified Code(s): I10 - Essential (primary) hypertension (6) SLE (systemic lupus erythematosus) Qualifiers: Systemic lupus erythematosus type: unspecified (7) Chronic pain Qualifiers: Chronic pain type: other chronic pain Qualified Code(s): G89.29 - Other chronic pain
[2018-09-21] MEDS: LORazepam 1 MG Tablet PO SCH (20:27)
[2018-09-21] MEDS: Melatonin 5 MG Tablet PO SCH (20:28)
[2018-09-22] MEDS: Heparin - SQ 10,000 UNITS/ML Vial SQ SCH ×3 (05:55→21:42)
[2018-09-22] MEDS: Levothyroxine 112 MCG Tablet PO SCH (05:55)
[2018-09-22 07:22] LABS: Baso % (Auto) 0.5 % (0.0-2.0); Eos # (Auto) 0.2 th/mm3 (0.0-0.4); Eos % (Auto) 1.8 % (0.0-4.0); Hematocrit 31.3 % (35.0-46.0); Hemoglobin 10.5 gm/dL (11.6-15.3); Lymph # (Auto) 2.9 th/mm3 (1.0-4.8); Lymph % (Auto) 31.3 % (9.0-44.0); Mean Corpuscular HGB Conc 33.4 % (32.0-36.0); Mean Corpuscular Volume 92.7 fL (80.0-100.0); Mean Platelet Volume 7.5 fL (7.0-11.0); Mono # (Auto) 0.7 th/mm3 (0.0-0.9); Mono % (Auto) 7.5 % (0.0-8.0); Neut # (Auto) 5.5 th/mm3 (1.8-7.7); Neut % (Auto) 58.9 % (16.0-70.0); Platelet Count 192 th/mm3 (150-450); Red Blood Count 3.38 mil/mm3 (4.00-5.30); Red Cell Distribution Width 16.2 % (11.6-17.2); White Blood Count 9.4 th/mm3 (4.0-11.0)
[2018-09-22 07:46] LABS: Albumin 2.8 g/dL (3.4-5.0); Calcium 8.3 mg/dL (8.5-10.1); Carbon Dioxide 23.8 meq/L (21.0-32.0); Magnesium 2.1 mg/dL (1.5-2.5); Phosphorus 3.4 mg/dL (2.5-4.9); Potassium 3.9 meq/L (3.5-5.1)
[2018-09-22] MEDS: predniSONE 20 MG Tablet PO SCH (08:56)
[2018-09-22] MEDS: Lisinopril 5 MG Tablet PO SCH (08:56)
[2018-09-22] MEDS: amLODIPine 5 MG Tablet PO SCH (08:57)
[2018-09-22] MEDS: Sodium Bicarbonate 650 MG Tablet PO SCH ×3 (09:03→17:42)
[2018-09-22] MEDS: Morphine Sulfate 15 MG SR Tablet PO SCH ×2 (09:04→21:39)
[2018-09-22] MEDS: Heparin Central Flush 100 UNIT/ML 5 ML Vial IV.FLUSH SCH (09:04)
[2018-09-22] MEDS: Senna/Docusate Sodium 8.6/50 MG Tablet PO SCH ×2 (09:06→21:42)
[2018-09-22] MEDS: Spironolactone 25 MG Tablet PO SCH ×2 (09:49→17:42)
--- NOTE | 2018-09-22 12:56 | P.PNNP ---
Subjective Interval history: Reports chest discomfort and mild shortness of breath. Creatinine stable at 1.18. <Cher Freeman - Last Filed: 09/22/18 12:49> Physical Exam Vital signs: Vital Signs 09/21/18 16:00 09/21/18 20:00 09/22/18 00:00 Temperature 98.2 F 99 F 98.3 F Pulse Rate 88 85 58 L Respiratory Rate 18 15 17 Blood Pressure 112/72 92/51 L 104/53 L Pulse Oximetry 98 97 97 09/22/18 03:27 09/22/18 04:00 09/22/18 08:00 Temperature 97.8 F 97.8 F Pulse Rate 84 54 L 100 H Respiratory Rate 14 19 Blood Pressure 102/56 L 102/76 Pulse Oximetry 98 98 09/22/18 12:00 Temperature 97.8 F Pulse Rate 90 Respiratory Rate 18 Blood Pressure 94/62 L Pulse Oximetry 98 Intake & Output 09/21/18 09/22/18 09/22/18 18:59 06:59 18:59 Intake Total 480 / 480 Balance 480 / 480 Weight 76.5 kg Intake: Oral 480 / 480 Other: # Voids 4 2 Date of Last Bowel Movement 09/20/18 09/21/18 09/21/18 # Bowel Movements 1 Narrative: GENERAL: Patient lying in bed. Appears comfortable. no changes SKIN: Warm and dry. NECK: Supple, trachea midline. No JVD. CARDIOVASCULAR: Regular rate and rhythm. RESPIRATORY: Breath sounds equal bilaterally. No accessory muscle use. GASTROINTESTINAL: Abdomen soft, non-tender, nondistended. MUSCULOSKELETAL: No cyanosis, or edema. BACK: Nontender without obvious deformity. No CVA tenderness. - Urinary Catheter Management Indwelling Urethral Catheter Cath placed during this visit: yes, but has since been removed by the nurse Reason for continuing: Decision to DC catheter Removal date: 08/07/18 Removal time: 18:00 <Cher Freeman - Last Filed: 09/22/18 12:49> Vital signs: Vital Signs 09/24/18 00:00 09/24/18 04:00 09/24/18 08:00 Temperature 98.3 F 99.0 F 97.8 F Pulse Rate 88 86 73 Respiratory Rate 16 16 18 Blood Pressure 108/57 L 100/57 L 102/62 Pulse Oximetry 97 98 96 09/24/18 12:00 09/24/18 16:00 Temperature 98.4 F 98.4 F Pulse Rate 98 H 75 Respiratory Rate 18 16 Blood Pressure 102/75 104/55 L Pulse Oximetry 99 97 Intake & Output 09/24/18 09/24/18 09/25/18 06:59 18:59 06:59 Intake Total 960 / 960 720 / 720 Output Total 1900 / 1900 1999 Balance -940 / -940 -1280 / -1280 Weight 76.8 kg Intake: Oral 960 / 960 720 / 720 Output: Urine 1900 / 1900 1999 Other: Date of Last Bowel Movement 09/23/18 09/22/18 # Bowel Movements 3 0 - Urinary Catheter Management Indwelling Urethral Catheter Cath placed during this visit: no <Slim Arrieta - Last Filed: 09/24/18 21:19> Assessment and Plan - Assessment (1) Acute kidney injury superimposed on CKD Code(s): N17.9 - Acute kidney failure, unspecified; N18.9 - Chronic kidney disease, unspecified Status: Acute Plan: Creatinine has remained stable 1.18, potassium at 3.9, HCO3 at 23.8. Has RTA Continue Aldactone, potassium replacement and NaHCO3. Fluids encouraged. Possible transfer to tertiary care center, ICD lead displacement recommended per cardiology (2) Hypertension Code(s): I10 - Essential (primary) hypertension Status: Chronic Qualifiers: Hypertension type: essential hypertension Qualified Code(s): I10 - Essential (primary) hypertension Plan: On lower side, will monitor (3) Endocarditis of tricuspid valve Code(s): I36.8 - Other nonrheumatic tricuspid valve disorders Status: Acute Plan: Antibiotics completed <Cher Freeman - Last Filed: 09/22/18 12:49> - Assessment (1) Acute kidney injury superimposed on CKD Code(s): N17.9 - Acute kidney failure, unspecified; N18.9 - Chronic kidney disease, unspecified Status: Acute Plan: Patient seen and examined, agree with above. Creatinine is 1.1, K is now 3.8. Continue K and NaHco3 and Aldactone. (2) Hypertension Code(s): I10 - Essential (primary) hypertension Status: Chronic Qualifiers: Hypertension type: essential hypertension Qualified Code(s): I10 - Essential (primary) hypertension (3) Endocarditis of tricuspid valve Code(s): I36.8 - Other nonrheumatic tricuspid valve disorders Status: Acute <Slim Arrieta - Last Filed: 09/24/18 21:19>
--- NOTE | 2018-09-22 15:26 | P.PNIM ---
Subjective Interval history: Patient says she is feeling right. Reports chronic pain as before. Physical Exam Vital signs: Vital Signs 09/21/18 16:00 09/21/18 20:00 09/22/18 00:00 Temperature 98.2 F 99 F 98.3 F Pulse Rate 88 85 58 L Respiratory Rate 18 15 17 Blood Pressure 112/72 92/51 L 104/53 L Pulse Oximetry 98 97 97 09/22/18 03:27 09/22/18 04:00 09/22/18 08:00 Temperature 97.8 F 97.8 F Pulse Rate 84 54 L 100 H Respiratory Rate 14 19 Blood Pressure 102/56 L 102/76 Pulse Oximetry 98 98 09/22/18 12:00 Temperature 97.8 F Pulse Rate 63 Respiratory Rate 18 Blood Pressure 94/62 L Pulse Oximetry 98 Intake & Output 09/21/18 09/22/18 09/22/18 18:59 06:59 18:59 Intake Total 480 / 480 Balance 480 / 480 Weight 76.5 kg Intake: Oral 480 / 480 Other: # Voids 4 2 Date of Last Bowel Movement 09/20/18 09/21/18 09/21/18 # Bowel Movements 1 Narrative: GENERAL: Patient lying in bed. Appears comfortable. no changes. Alert and oriented x3. SKIN: Warm and dry. NECK: Supple, trachea midline. No JVD. CARDIOVASCULAR: Regular rate and rhythm. RESPIRATORY: Breath sounds equal bilaterally. No accessory muscle use. GASTROINTESTINAL: Abdomen soft, non-tender, nondistended. MUSCULOSKELETAL: No cyanosis, or edema. BACK: Nontender without obvious deformity. No CVA tenderness. - Urinary Catheter Management Indwelling Urethral Catheter Cath placed during this visit: yes, but has since been removed by the nurse Reason for continuing: Decision to DC catheter Removal date: 08/07/18 Removal time: 18:00 Results - Labs CBC & Chem 7: 09/22/18 06:49 09/22/18 06:49 Laboratory Results - last 24 hr 09/22/18 09/22/18 06:49 06:49 WBC 9.4 RBC 3.38 L Hgb 10.5 L Hct 31.3 L MCV 92.7 MCH 31.0 MCHC 33.4 RDW 16.2 Plt Count 192 MPV 7.5 Neut % (Auto) 58.9 Lymph % (Auto) 31.3 [place] % (Auto) 7.5 Eos % (Auto) 1.8 Baso % (Auto) 0.5 Neut # (Auto) 5.5 Lymph # (Auto) 2.9 [place] # (Auto) 0.7 Eos # (Auto) 0.2 Baso # (Auto) 0.0 WBC Differential . Differential Comment Auto diff final Sodium 141 Potassium 3.9 Chloride 109 H Carbon Dioxide 23.8 Anion Gap 8 BUN 26 H Creatinine 1.18 H Estimated GFR 50 L Random Glucose 89 Calcium 8.3 L Phosphorus 3.4 Magnesium 2.1 Albumin 2.8 L Assessment and Plan - Assessment (1) Endocarditis of tricuspid valve Code(s): I36.8 - Other nonrheumatic tricuspid valve disorders Status: Acute (2) Brugada syndrome Code(s): I49.8 - Other specified cardiac arrhythmias Status: Resolved (3) Hypertension Code(s): I10 - Essential (primary) hypertension Status: Chronic (4) ICD (implantable cardioverter-defibrillator) malfunction Code(s): T82.118A - Breakdown (mechanical) of other cardiac electronic device, initial encounter Status: Acute (5) Medical non-compliance Code(s): Z91.19 - Patient's noncompliance with other medical treatment and regimen Status: Acute (6) SLE (systemic lupus erythematosus) Code(s): M32.9 - Systemic lupus erythematosus, unspecified Status: Chronic (7) Chronic pain Code(s): G89.29 - Other chronic pain Status: Chronic (8) Acute kidney injury superimposed on CKD Code(s): N17.9 - Acute kidney failure, unspecified; N18.9 - Chronic kidney disease, unspecified Status: Acute - Plan 42-year-old female with History of chronic pain syndrome Possible seizures -Continue with morphine slow release 30 mg at night and 15 mg during the day. DC IV Morphine -As needed Valium 10 mg p.o. every 8 hours- 5 mg po q8 prn AICD malfunction/probable dislodged pacemaker lead, status post lead extraction and placement of new leads 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 2D echo shows tricuspid valve endocarditis, ID following-antibiotics as below CVVH started 9/28 due to severe acidosis, now transition to HD Prior ICD pocket infection in December 2017 and February 2018. Recently replaced by Dr. Cervantes. Per device rep she did not follow-up device check -Management per english as a second language instructor -Continue vancomycin, aztreonam per ID. To complete abx 09/17/18 = 09/17. Plan for discharge tomorrow after completing antibiotics today. = 09/18. Discontinue antibiotics having completed treatment course. Cardiology consulted for lead dislodgment. = 09/19 due to multiple lead dislodgment, cardiology pursuing possible transfer to tertiary care center. =09/20. Follow cardiology recommendations. Appreciate assistance. = 09/21. Discussed with electrophysiology. Follow-up recommendations. = 09/22. Discussed with electrophysiology again. electrophysiology recommends discharging home and following up with [facility] as outpatient. Await further recommendations from electrophysiology regarding possible LifeVest. Essential hypertension. - continue Amlodipine PM wires dislodged- 08/25 - PM interrogated -per TJ - [employer] rep- wires are all dislodged- occasionally capturing Cardiology consulted- Dr. Edinson Andrade -s/p pacemaker revision (08/29) = 09/17. Patient with heaving involuntary chest motions. Will check EKG. Reconsult cardiology. = 09/18. Status post lead dislodgment again. Psychiatry consulted. Appreciate recommendations. Tricuspid valve endocarditis History of ICD pocket infection most recently with MRSA February 2018. She has undergone device removal on 2 prior occasions. Most recently was removed in February 2018 with wound VAC placement. Device replaced 06/27/18. 2D echo showed tricuspid valve endocarditis while bld cx's are neg -Continue vancomycin, aztreonam per ID . To complete abx 09/17/18 Yeast vaginitis-resolved - s/p diflucan dose; likely 2/2 immunosupression 2/2 steroids Crohn's disease -follow-up with [facility] gastroenterology in the end of August -continue PO steroids Menorrhagia, patient reports is a chronic problem. Hasn't followed up with gynecology in over a year. 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 -Continue Aldactone, potassium replacement and sodium bicarb Hypokalemia -replace as needed Hypernatremia -Improved Systemic lupus erythematosus On chronic steroids -Tapered down from stress dose steroids to chronic baseline dosing Chronic anemia Thrombocytopenia -H&H currently stable, continue to monitor. Hypothyroidism -Continue Synthroid Insomnia continue melatonin Labile mood. per previous notes Patient refusing to be seen by psychiatry doctor. [place]'s dx likely. patient is noted on/off disrupting new AICD as noted with pauses, labs are normal , lytes are normal -continue to monitor PROPH: SCDs for DVT prophylaxis and heparin 5000 units subcu every 8 Protonix 40 mg daily for stress ulcer prophylaxis. Discharge Planning: Patient completed antibiotics 09/17. Pacemaker lead dislodgment noted on 09/17. -Possible transfer to tertiary care center. = Follow-up EP recommendations. EP recommends patient discharged home and follow-up with [facility] as outpatient. Need to verify that patient has appointment and whether or not she needs a LifeVest given history of arrhythmia... (3) Hypertension Qualifiers: Hypertension type: essential hypertension Qualified Code(s): I10 - Essential (primary) hypertension (6) SLE (systemic lupus erythematosus) Qualifiers: Systemic lupus erythematosus type: unspecified (7) Chronic pain Qualifiers: Chronic pain type: other chronic pain Qualified Code(s): G89.29 - Other chronic pain
[2018-09-22] MEDS: LORazepam 1 MG Tablet PO SCH (21:38)
[2018-09-22] MEDS: Melatonin 5 MG Tablet PO SCH (21:41)
[2018-09-23] MEDS: Heparin - SQ 10,000 UNITS/ML Vial SQ SCH ×3 (06:49→22:07)
[2018-09-23] MEDS: Levothyroxine 112 MCG Tablet PO SCH (06:49)
[2018-09-23] MEDS: Morphine Sulfate 15 MG SR Tablet PO SCH ×2 (08:57→22:05)
[2018-09-23] MEDS: Senna/Docusate Sodium 8.6/50 MG Tablet PO SCH ×2 (08:57→20:14)
[2018-09-23] MEDS: amLODIPine 5 MG Tablet PO SCH (08:58)
[2018-09-23] MEDS: Lisinopril 5 MG Tablet PO SCH (08:58)
[2018-09-23] MEDS: predniSONE 20 MG Tablet PO SCH (08:58)
[2018-09-23] MEDS: Spironolactone 25 MG Tablet PO SCH ×2 (08:59→17:14)
[2018-09-23] MEDS: Heparin Central Flush 100 UNIT/ML 5 ML Vial IV.FLUSH SCH (09:00)
[2018-09-23] MEDS: Sodium Bicarbonate 650 MG Tablet PO SCH ×3 (09:00→17:14)
--- NOTE | 2018-09-23 13:15 | P.PNIM ---
Subjective Interval history: Reports pain all over as before. Denies any nausea or vomiting. Denies constipation or diarrhea. Has been walking around the unit. Physical Exam Vital signs: Vital Signs 09/22/18 16:00 09/22/18 20:00 09/23/18 00:00 Temperature 98.3 F 98.2 F 98.0 F Pulse Rate 98 H 84 78 Respiratory Rate 18 17 17 Blood Pressure 96/72 L 115/55 L 88/50 L Pulse Oximetry 99 98 95 09/23/18 00:22 09/23/18 04:00 09/23/18 08:00 Temperature 97.7 F 97.7 F Pulse Rate 84 69 63 Respiratory Rate 16 18 Blood Pressure 96/51 L 97/56 L Pulse Oximetry 96 98 09/23/18 12:00 Temperature Pulse Rate 89 Respiratory Rate Blood Pressure Pulse Oximetry Intake & Output 09/22/18 09/23/18 09/23/18 18:59 06:59 18:59 Intake Total 400 / 400 Output Total 2900 / 2900 Balance -2500 / -2500 Weight 76.5 kg 73.6 kg Intake: Oral 400 / 400 Output: Urine 2900 / 2900 Other: # Voids 8 Date of Last Bowel Movement 09/21/18 09/21/18 09/22/18 # Bowel Movements 1 Narrative: GENERAL: Patient lying in bed. Appears comfortable. Observed walking around the unit. No changes. Alert and oriented x3. SKIN: Warm and dry. NECK: Supple, trachea midline. No JVD. CARDIOVASCULAR: Regular rate and rhythm. RESPIRATORY: Breath sounds equal bilaterally. No accessory muscle use. GASTROINTESTINAL: Abdomen soft, non-tender, nondistended. MUSCULOSKELETAL: No cyanosis, or edema. BACK: Nontender without obvious deformity. No CVA tenderness. - Urinary Catheter Management Indwelling Urethral Catheter Cath placed during this visit: yes, but has since been removed by the nurse Reason for continuing: Decision to DC catheter Removal date: 08/07/18 Removal time: 18:00 Results - Labs CBC & Chem 7: 09/22/18 06:49 09/22/18 06:49 Assessment and Plan - Assessment (1) Endocarditis of tricuspid valve Code(s): I36.8 - Other nonrheumatic tricuspid valve disorders Status: Acute (2) Brugada syndrome Code(s): I49.8 - Other specified cardiac arrhythmias Status: Resolved (3) Hypertension Code(s): I10 - Essential (primary) hypertension Status: Chronic (4) ICD (implantable cardioverter-defibrillator) malfunction Code(s): T82.118A - Breakdown (mechanical) of other cardiac electronic device, initial encounter Status: Acute (5) Medical non-compliance Code(s): Z91.19 - Patient's noncompliance with other medical treatment and regimen Status: Acute (6) SLE (systemic lupus erythematosus) Code(s): M32.9 - Systemic lupus erythematosus, unspecified Status: Chronic (7) Chronic pain Code(s): G89.29 - Other chronic pain Status: Chronic (8) Acute kidney injury superimposed on CKD Code(s): N17.9 - Acute kidney failure, unspecified; N18.9 - Chronic kidney disease, unspecified Status: Acute - Plan 42-year-old female with History of chronic pain syndrome Possible seizures -Continue with morphine slow release 30 mg at night and 15 mg during the day. DC IV Morphine -As needed Valium 10 mg p.o. every 8 hours- 5 mg po q8 prn AICD malfunction/probable dislodged pacemaker lead, status post lead extraction and placement of new leads 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 2D echo shows tricuspid valve endocarditis, ID following-antibiotics as below CVVH started 08/03 due to severe acidosis, now transition to HD Prior ICD pocket infection in December 2017 and February 2018. Recently replaced by Dr. Cervantes. Per device rep she did not follow-up device check -Management per access developer -Continue vancomycin, aztreonam per ID. To complete abx 09/17/18 = 09/17. Plan for discharge tomorrow after completing antibiotics today. = 09/18. Discontinue antibiotics having completed treatment course. Cardiology consulted for lead dislodgment. = 09/19 due to multiple lead dislodgment, cardiology pursuing possible transfer to tertiary care center. =09/20. Follow cardiology recommendations. Appreciate assistance. = 09/21. Discussed with electrophysiology. Follow-up recommendations. = 09/22. Discussed with electrophysiology again. electrophysiology recommends discharging home and following up with [facility] as outpatient. Await further recommendations from electrophysiology regarding possible LifeVest. = 09/23. Patient reports that LifeVest did not work in the past, and that she is unable to follow-up with [facility] as an outpatient. Will discuss with case management her transport options. Essential hypertension. - continue Amlodipine PM wires dislodged- 08/25 - PM interrogated -per TJ - [employer] rep- wires are all dislodged- occasionally capturing Cardiology consulted- Dr. Edinson Andrade -s/p pacemaker revision (08/29) = 09/17. Patient with heaving involuntary chest motions. Will check EKG. Reconsult cardiology. = 09/18. Status post lead dislodgment again. Psychiatry consulted. Appreciate recommendations. Tricuspid valve endocarditis History of ICD pocket infection most recently with MRSA February 2018. She has undergone device removal on 2 prior occasions. Most recently was removed in February 2018 with wound VAC placement. Device replaced 06/27/18. 2D echo showed tricuspid valve endocarditis while bld cx's are neg -Continue vancomycin, aztreonam per ID . To complete abx 09/17/18 Yeast vaginitis-resolved - s/p diflucan dose; likely 2/2 immunosupression 2/2 steroids Crohn's disease -follow-up with [facility] gastroenterology in the end of August -continue PO steroids Menorrhagia, patient reports is a chronic problem. Hasn't followed up with gynecology in over a year. 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 -Continue Aldactone, potassium replacement and sodium bicarb Hypokalemia -replace as needed Hypernatremia -Improved Systemic lupus erythematosus On chronic steroids -Tapered down from stress dose steroids to chronic baseline dosing Chronic anemia Thrombocytopenia -H&H currently stable, continue to monitor. Hypothyroidism -Continue Synthroid Insomnia continue melatonin Labile mood. per previous notes Patient refusing to be seen by psychiatry doctor. [place]'s dx likely. patient is noted on/off disrupting new AICD as noted with pauses, labs are normal , lytes are normal -continue to monitor PROPH: SCDs for DVT prophylaxis and heparin 5000 units subcu every 8 Protonix 40 mg daily for stress ulcer prophylaxis. Discharge Planning: Patient completed antibiotics 09/17. Pacemaker lead dislodgment noted on 09/17. -Possible transfer to tertiary care center. = Follow-up EP recommendations. EP recommends patient discharged home and follow-up with [facility] as outpatient. Patient says she is unable to use LifeVest in the past kept alarming. Patient says she is unable to follow-up questions as an outpatient. Will discuss with case management her transportation options. (3) Hypertension Qualifiers: Hypertension type: essential hypertension Qualified Code(s): I10 - Essential (primary) hypertension (6) SLE (systemic lupus erythematosus) Qualifiers: Systemic lupus erythematosus type: unspecified (7) Chronic pain Qualifiers: Chronic pain type: other chronic pain Qualified Code(s): G89.29 - Other chronic pain
[2018-09-23] MEDS: LORazepam 1 MG Tablet PO SCH (22:07)
[2018-09-23] MEDS: Melatonin 5 MG Tablet PO SCH (22:07)
[2018-09-24] MEDS: Levothyroxine 112 MCG Tablet PO SCH (05:57)
[2018-09-24] MEDS: Heparin - SQ 10,000 UNITS/ML Vial SQ SCH ×3 (05:57→21:39)
[2018-09-24] MEDS: Morphine Sulfate 15 MG SR Tablet PO SCH ×2 (09:18→20:44)
[2018-09-24] MEDS: Lisinopril 5 MG Tablet PO SCH (09:18)
[2018-09-24] MEDS: amLODIPine 5 MG Tablet PO SCH (09:18)
[2018-09-24] MEDS: Senna/Docusate Sodium 8.6/50 MG Tablet PO SCH ×2 (09:19→20:45)
[2018-09-24] MEDS: Sodium Bicarbonate 650 MG Tablet PO SCH ×3 (09:19→18:23)
[2018-09-24] MEDS: predniSONE 20 MG Tablet PO SCH (09:19)
[2018-09-24] MEDS: Heparin Central Flush 100 UNIT/ML 5 ML Vial IV.FLUSH SCH (09:20)
[2018-09-24] MEDS: Spironolactone 25 MG Tablet PO SCH ×2 (09:24→18:26)
--- NOTE | 2018-09-24 15:12 | P.PNIM ---
Subjective Interval history: Patient says that pain continues as before. Otherwise walking around without difficulty. Physical Exam Vital signs: Vital Signs 09/23/18 16:00 09/23/18 20:00 09/24/18 00:00 Temperature 98.1 F 98.2 F 98.3 F Pulse Rate 70 113 H 88 Respiratory Rate 18 16 16 Blood Pressure 100/59 L 142/83 H 108/57 L Pulse Oximetry 95 99 97 09/24/18 04:00 09/24/18 08:00 09/24/18 12:00 Temperature 99.0 F 97.8 F 98.4 F Pulse Rate 86 96 H 99 H Respiratory Rate 16 18 18 Blood Pressure 100/57 L 102/62 102/75 Pulse Oximetry 98 96 99 Intake & Output 09/23/18 09/24/18 09/24/18 18:59 06:59 18:59 Intake Total 960 / 960 Output Total 1900 / 1900 Balance -940 / -940 Weight 76.8 kg Intake: Oral 960 / 960 Output: Urine 1900 / 1900 Other: # Voids 10 Date of Last Bowel Movement 09/22/18 09/23/18 09/22/18 # Bowel Movements 1 3 Narrative: GENERAL: Patient lying in bed. Appears comfortable. Observed walking around the unit again. No changes. Alert and oriented x3. SKIN: Warm and dry. NECK: Supple, trachea midline. No JVD. CARDIOVASCULAR: Regular rate and rhythm. RESPIRATORY: Breath sounds equal bilaterally. No accessory muscle use. GASTROINTESTINAL: Abdomen soft, non-tender, nondistended. MUSCULOSKELETAL: No cyanosis, or edema. BACK: Nontender without obvious deformity. No CVA tenderness. - Urinary Catheter Management Indwelling Urethral Catheter Cath placed during this visit: yes, but has since been removed by the nurse Reason for continuing: Decision to DC catheter Removal date: 08/07/18 Removal time: 18:00 Results - Labs CBC & Chem 7: 09/22/18 06:49 09/22/18 06:49 Assessment and Plan - Assessment (1) Endocarditis of tricuspid valve Code(s): I36.8 - Other nonrheumatic tricuspid valve disorders Status: Acute (2) Brugada syndrome Code(s): I49.8 - Other specified cardiac arrhythmias Status: Resolved (3) Hypertension Code(s): I10 - Essential (primary) hypertension Status: Chronic (4) ICD (implantable cardioverter-defibrillator) malfunction Code(s): T82.118A - Breakdown (mechanical) of other cardiac electronic device, initial encounter Status: Acute (5) Medical non-compliance Code(s): Z91.19 - Patient's noncompliance with other medical treatment and regimen Status: Acute (6) SLE (systemic lupus erythematosus) Code(s): M32.9 - Systemic lupus erythematosus, unspecified Status: Chronic (7) Chronic pain Code(s): G89.29 - Other chronic pain Status: Chronic (8) Acute kidney injury superimposed on CKD Code(s): N17.9 - Acute kidney failure, unspecified; N18.9 - Chronic kidney disease, unspecified Status: Acute - Plan 42-year-old female with History of chronic pain syndrome Possible seizures -Continue with morphine slow release 30 mg at night and 15 mg during the day. DC IV Morphine -As needed Valium 10 mg p.o. every 8 hours- 5 mg po q8 prn AICD malfunction/probable dislodged pacemaker lead, status post lead extraction and placement of new leads 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 2D echo shows tricuspid valve endocarditis, ID following-antibiotics as below CVVH started 08/03 due to severe acidosis, now transition to HD Prior ICD pocket infection in December 2017 and February 2018. Recently replaced by Dr. Cervantes. Per device rep she did not follow-up device check -Management per power nut runner operator -Continue vancomycin, aztreonam per ID. To complete abx 09/17/18 = 09/17. Plan for discharge tomorrow after completing antibiotics today. = 09/18. Discontinue antibiotics having completed treatment course. Cardiology consulted for lead dislodgment. = 09/19 due to multiple lead dislodgment, cardiology pursuing possible transfer to tertiary care center. =09/20. Follow cardiology recommendations. Appreciate assistance. = 09/21. Discussed with electrophysiology. Follow-up recommendations. = 09/22. Discussed with electrophysiology again. electrophysiology recommends discharging home and following up with [facility] as outpatient. Await further recommendations from electrophysiology regarding possible LifeVest. = 09/23. Patient reports that LifeVest did not work in the past, and that she is unable to follow-up with [facility] as an outpatient. Will discuss with case management her transport options. = 09/24. Discussed with case management. Case management able to arrange transport for patient if she is to follow-up with [facility]. Discussed with cardiology and awaiting further recommendations. Essential hypertension. - continue Amlodipine PM wires dislodged- 08/25 - PM interrogated -per TJ - [employer] rep- wires are all dislodged- occasionally capturing Cardiology consulted- Dr. Edinson Andrade -s/p pacemaker revision (08/29) = 09/17. Patient with heaving involuntary chest motions. Will check EKG. Reconsult cardiology. = 09/18. Status post lead dislodgment again. Psychiatry consulted. Appreciate recommendations. Tricuspid valve endocarditis History of ICD pocket infection most recently with MRSA February 2018. She has undergone device removal on 2 prior occasions. Most recently was removed in February 2018 with wound VAC placement. Device replaced 06/27/18. 2D echo showed tricuspid valve endocarditis while bld cx's are neg Completed Abx 09/17/18 Yeast vaginitis-resolved - s/p diflucan dose; likely 2/2 immunosupression 2/2 steroids Crohn's disease -follow-up with [facility] gastroenterology in the end of August -continue PO steroids Menorrhagia, patient reports is a chronic problem. Hasn't followed up with gynecology in over a year. 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 -Continue Aldactone, potassium replacement and sodium bicarb Hypokalemia -replace as needed Hypernatremia -Improved Systemic lupus erythematosus On chronic steroids -Tapered down from stress dose steroids to chronic baseline dosing Chronic anemia Thrombocytopenia -H&H currently stable, continue to monitor. Hypothyroidism -Continue Synthroid Insomnia continue melatonin Labile mood. per previous notes Patient refusing to be seen by psychiatry doctor. [place]'s dx likely. patient is noted on/off disrupting new AICD as noted with pauses, labs are normal , lytes are normal -continue to monitor PROPH: SCDs for DVT prophylaxis and heparin 5000 units subcu every 8 Protonix 40 mg daily for stress ulcer prophylaxis. Discharge Planning: Patient completed antibiotics 09/17. Pacemaker lead dislodgment noted on 09/17. -Possible transfer to tertiary care center. = Follow-up EP recommendations. EP recommends patient discharged home and follow-up with [facility] as outpatient. = Discussed with case management who can arrange for transport for patient to follow-up with [facility] as outpatient = Discussed with cardiology. Will follow further recommendations regarding LifeVest. (3) Hypertension Qualifiers: Hypertension type: essential hypertension Qualified Code(s): I10 - Essential (primary) hypertension (6) SLE (systemic lupus erythematosus) Qualifiers: Systemic lupus erythematosus type: unspecified (7) Chronic pain Qualifiers: Chronic pain type: other chronic pain Qualified Code(s): G89.29 - Other chronic pain
[2018-09-24] MEDS: LORazepam 1 MG Tablet PO SCH (20:44)
[2018-09-24] MEDS: Melatonin 5 MG Tablet PO SCH (20:44)
[2018-09-25] MEDS: Levothyroxine 112 MCG Tablet PO SCH (05:21)
[2018-09-25] MEDS: Heparin - SQ 10,000 UNITS/ML Vial SQ SCH ×3 (05:22→21:36)
[2018-09-25] MEDS: predniSONE 20 MG Tablet PO SCH (09:21)
[2018-09-25] MEDS: Lisinopril 5 MG Tablet PO SCH (09:22)
[2018-09-25] MEDS: amLODIPine 5 MG Tablet PO SCH (09:22)
[2018-09-25] MEDS: Morphine Sulfate 15 MG SR Tablet PO SCH ×2 (09:22→21:35)
[2018-09-25] MEDS: Sodium Bicarbonate 650 MG Tablet PO SCH ×3 (09:22→19:00)
[2018-09-25] MEDS: Heparin Central Flush 100 UNIT/ML 5 ML Vial IV.FLUSH SCH (09:24)
[2018-09-25] MEDS: Senna/Docusate Sodium 8.6/50 MG Tablet PO SCH ×2 (09:29→21:36)
[2018-09-25] MEDS: Spironolactone 25 MG Tablet PO SCH ×2 (09:29→19:00)
--- NOTE | 2018-09-25 16:20 | P.PNIM ---
Subjective Interval history: Feeling right. Reports continued pain all over as before. She reports small suture sticking out of lateral end of pacer incision. She says Steri-Strips came off while bathing.. Physical Exam Vital signs: Vital Signs 09/24/18 20:00 09/25/18 00:00 09/25/18 04:00 Temperature 97.8 F 97.9 F 98.2 F Pulse Rate 93 H 88 96 H Respiratory Rate 18 Blood Pressure 118/70 107/67 101/78 Pulse Oximetry 98 98 97 09/25/18 08:00 09/25/18 12:00 Temperature 97.9 F 98.3 F Pulse Rate 109 H 111 H Respiratory Rate 16 16 Blood Pressure 104/76 116/75 Pulse Oximetry 97 99 Intake & Output 09/24/18 09/25/18 09/25/18 18:59 06:59 18:59 Intake Total 720 / 720 1000 / 1000 Output Total 2000 / 1999 3000 / 3000 Balance -1280 / -1280 -1999 / -2000 Intake: Oral 720 / 720 1000 / 1000 Output: Urine 1999 3000 / 3000 Other: Date of Last Bowel Movement 09/22/18 09/22/18 # Bowel Movements 0 Narrative: GENERAL: Patient lying in bed. Appears comfortable. Alert and oriented x3. SKIN: Warm and dry. NECK: Supple, trachea midline. No JVD. CARDIOVASCULAR: Regular rate and rhythm. RESPIRATORY: Breath sounds equal bilaterally. No accessory muscle use. Left upper chest Steri-Strips removed. The does not appear to be small roughly 1-2 mm wound dehiscence of the lateral end of pacer surgical scar which is otherwise well-healed. Small subcuticular suture appears to be protruding from this dehiscence. No surrounding erythema. No pus. GASTROINTESTINAL: Abdomen soft, non-tender, nondistended. MUSCULOSKELETAL: No cyanosis, or edema. BACK: Nontender without obvious deformity. No CVA tenderness. - Urinary Catheter Management Indwelling Urethral Catheter Cath placed during this visit: yes, but has since been removed by the nurse Reason for continuing: Decision to DC catheter Removal date: 08/07/18 Removal time: 18:00 Results - Labs CBC & Chem 7: 09/22/18 06:49 09/22/18 06:49 Assessment and Plan - Assessment (1) Endocarditis of tricuspid valve Code(s): I36.8 - Other nonrheumatic tricuspid valve disorders Status: Acute (2) Brugada syndrome Code(s): I49.8 - Other specified cardiac arrhythmias Status: Resolved (3) Hypertension Code(s): I10 - Essential (primary) hypertension Status: Chronic (4) ICD (implantable cardioverter-defibrillator) malfunction Code(s): T82.118A - Breakdown (mechanical) of other cardiac electronic device, initial encounter Status: Acute (5) Medical non-compliance Code(s): Z91.19 - Patient's noncompliance with other medical treatment and regimen Status: Acute (6) SLE (systemic lupus erythematosus) Code(s): M32.9 - Systemic lupus erythematosus, unspecified Status: Chronic (7) Chronic pain Code(s): G89.29 - Other chronic pain Status: Chronic (8) Acute kidney injury superimposed on CKD Code(s): N17.9 - Acute kidney failure, unspecified; N18.9 - Chronic kidney disease, unspecified Status: Acute - Plan 42-year-old female with History of chronic pain syndrome Possible seizures -Continue with morphine slow release 30 mg at night and 15 mg during the day. DC IV Morphine -As needed Valium 10 mg p.o. every 8 hours- 5 mg po q8 prn AICD malfunction/probable dislodged pacemaker lead, status post lead extraction and placement of new leads 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 2D echo shows tricuspid valve endocarditis, ID following-antibiotics as below CVVH started 08/03 due to severe acidosis, now transition to HD Prior ICD pocket infection in December 2017 and February 2018. Recently replaced by Dr. Cervantes. Per device rep she did not follow-up device check -Management per compressed gas equipment mechanic -Continue vancomycin, aztreonam per ID. To complete abx 09/17/18 = 09/17. Plan for discharge tomorrow after completing antibiotics today. = 09/18. Discontinue antibiotics having completed treatment course. Cardiology consulted for lead dislodgment. = 09/19 due to multiple lead dislodgment, cardiology pursuing possible transfer to tertiary care center. =09/20. Follow cardiology recommendations. Appreciate assistance. = 09/21. Discussed with electrophysiology. Follow-up recommendations. = 09/22. Discussed with electrophysiology again. electrophysiology recommends discharging home and following up with [facility] as outpatient. Await further recommendations from electrophysiology regarding possible LifeVest. = 09/23. Patient reports that LifeVest did not work in the past, and that she is unable to follow-up with [facility] as an outpatient. Will discuss with case management her transport options. = 09/24. Discussed with case management. Case management able to arrange transport for patient if she is to follow-up with [facility]. Discussed with cardiology and awaiting further recommendations. = 09/25. Small area of wound dehiscence on the lateral border of pacer scar. Nursing to notify Dr. Cervantes. Discussed with case management, Dr. Cervantes this morning prior to seeing patient, and referrals made to other institutions. Appreciate cardiology and case management assistance. Essential hypertension. - continue Amlodipine PM wires dislodged- 08/25 - PM interrogated -per TJ - [employer] rep- wires are all dislodged- occasionally capturing Cardiology consulted- Dr. Edinson Andrade -s/p pacemaker revision (08/29) = 09/17. Patient with heaving involuntary chest motions. Will check EKG. Reconsult cardiology. = 09/18. Status post lead dislodgment again. Psychiatry consulted. Appreciate recommendations. Tricuspid valve endocarditis History of ICD pocket infection most recently with MRSA February 2018. She has undergone device removal on 2 prior occasions. Most recently was removed in February 2018 with wound VAC placement. Device replaced 06/27/18. 2D echo showed tricuspid valve endocarditis while bld cx's are neg Completed Abx 09/17/18 Yeast vaginitis-resolved - s/p diflucan dose; likely 2/2 immunosupression 2/2 steroids Crohn's disease -follow-up with [facility] gastroenterology in the end of August -continue PO steroids Menorrhagia, patient reports is a chronic problem. Hasn't followed up with gynecology in over a year. 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 -Continue Aldactone, potassium replacement and sodium bicarb Hypokalemia -replace as needed Hypernatremia -Improved Systemic lupus erythematosus On chronic steroids -Tapered down from stress dose steroids to chronic baseline dosing Chronic anemia Thrombocytopenia -H&H currently stable, continue to monitor. Hypothyroidism -Continue Synthroid Insomnia continue melatonin Labile mood. per previous notes Patient refusing to be seen by psychiatry doctor. [place]'s dx likely. patient is noted on/off disrupting new AICD as noted with pauses, labs are normal , lytes are normal -continue to monitor PROPH: SCDs for DVT prophylaxis and heparin 5000 units subcu every 8 Protonix 40 mg daily for stress ulcer prophylaxis. Discharge Planning: Patient completed antibiotics 09/17. Pacemaker lead dislodgment noted on 09/17. -Possible transfer to tertiary care center. = Follow-up EP recommendations. EP recommends patient discharged home and follow-up with [facility] as outpatient. = Discussed with case management who can arrange for transport for patient to follow-up with [facility] as outpatient = Discussed with cardiology. Will follow further recommendations regarding LifeVest. = 09/25. Discussed with electrophysiology. Referrals made to tertiary care centers. Discussed with case folder. Follow-up was not arranged with [facility] at this time. Appreciate cardiology and case management assistance. (3) Hypertension Qualifiers: Hypertension type: essential hypertension Qualified Code(s): I10 - Essential (primary) hypertension (6) SLE (systemic lupus erythematosus) Qualifiers: Systemic lupus erythematosus type: unspecified (7) Chronic pain Qualifiers: Chronic pain type: other chronic pain Qualified Code(s): G89.29 - Other chronic pain
[2018-09-25] MEDS: LORazepam 1 MG Tablet PO SCH (21:35)
[2018-09-25] MEDS: Melatonin 5 MG Tablet PO SCH (21:35)
[2018-09-26] MEDS: Levothyroxine 112 MCG Tablet PO SCH (05:07)
[2018-09-26] MEDS: Heparin - SQ 10,000 UNITS/ML Vial SQ SCH ×3 (05:08→21:38)
[2018-09-26] MEDS: Lisinopril 5 MG Tablet PO SCH (09:11)
[2018-09-26] MEDS: Morphine Sulfate 15 MG SR Tablet PO SCH ×2 (09:11→21:36)
[2018-09-26] MEDS: amLODIPine 5 MG Tablet PO SCH (09:12)
[2018-09-26] MEDS: Sodium Bicarbonate 650 MG Tablet PO SCH ×3 (09:12→18:33)
[2018-09-26] MEDS: Heparin Central Flush 100 UNIT/ML 5 ML Vial IV.FLUSH SCH (09:13)
[2018-09-26] MEDS: predniSONE 20 MG Tablet PO SCH (09:13)
[2018-09-26] MEDS: Spironolactone 25 MG Tablet PO SCH ×2 (09:16→18:33)
[2018-09-26] MEDS: Senna/Docusate Sodium 8.6/50 MG Tablet PO SCH ×2 (10:05→21:38)
--- NOTE | 2018-09-26 15:57 | P.PNIM ---
Subjective Interval history: Patient has been walking around without difficulty. She reports continued pain all over. No acute events per nursing. Physical Exam Vital signs: Vital Signs 09/25/18 16:00 09/25/18 20:00 09/26/18 00:00 Temperature 98.4 F 98.1 F 97.9 F Pulse Rate 93 H 82 66 Respiratory Rate 18 16 16 Blood Pressure 130/94 H 104/51 L 106/55 L Pulse Oximetry 98 97 95 09/26/18 04:00 09/26/18 08:00 09/26/18 12:00 Temperature 97.9 F 98.3 F 98.6 F Pulse Rate 64 88 104 H Respiratory Rate 16 16 16 Blood Pressure 112/54 L 99/72 L 124/77 Pulse Oximetry 97 98 98 Intake & Output 09/25/18 09/26/18 09/26/18 18:59 06:59 18:59 Intake Total 960 / 960 240 / 240 Output Total 1999 / 1999 900 / 900 Balance -1040 / -1040 -660 / -660 Weight 76.5 kg Intake: Oral 960 / 960 240 / 240 Output: Urine 1999 900 / 900 Other: Date of Last Bowel Movement 09/25/18 # Bowel Movements 1 Narrative: GENERAL: Patient lying in bed. Appears comfortable. Alert and oriented x3. SKIN: Warm and dry. NECK: Supple, trachea midline. No JVD. CARDIOVASCULAR: Regular rate and rhythm. RESPIRATORY: Breath sounds equal bilaterally. No accessory muscle use. Left upper chest Steri-Strips removed. Surgical scar with Steri-Strips intact. No surrounding erythema or induration. GASTROINTESTINAL: Abdomen soft, non-tender, nondistended. MUSCULOSKELETAL: No cyanosis, or edema. BACK: Nontender without obvious deformity. No CVA tenderness. - Urinary Catheter Management Indwelling Urethral Catheter Cath placed during this visit: yes, but has since been removed by the nurse Reason for continuing: Decision to DC catheter Removal date: 08/07/18 Removal time: 18:00 Results - Labs CBC & Chem 7: 09/22/18 06:49 09/22/18 06:49 Assessment and Plan - Assessment (1) Endocarditis of tricuspid valve Code(s): I36.8 - Other nonrheumatic tricuspid valve disorders Status: Acute (2) Brugada syndrome Code(s): I49.8 - Other specified cardiac arrhythmias Status: Resolved (3) Hypertension Code(s): I10 - Essential (primary) hypertension Status: Chronic (4) ICD (implantable cardioverter-defibrillator) malfunction Code(s): T82.118A - Breakdown (mechanical) of other cardiac electronic device, initial encounter Status: Acute (5) Medical non-compliance Code(s): Z91.19 - Patient's noncompliance with other medical treatment and regimen Status: Acute (6) SLE (systemic lupus erythematosus) Code(s): M32.9 - Systemic lupus erythematosus, unspecified Status: Chronic (7) Chronic pain Code(s): G89.29 - Other chronic pain Status: Chronic (8) Acute kidney injury superimposed on CKD Code(s): N17.9 - Acute kidney failure, unspecified; N18.9 - Chronic kidney disease, unspecified Status: Acute - Plan 42-year-old female with History of chronic pain syndrome Possible seizures -Continue with morphine slow release 30 mg at night and 15 mg during the day. DC IV Morphine -As needed Valium 10 mg p.o. every 8 hours- 5 mg po q8 prn AICD malfunction/probable dislodged pacemaker lead, status post lead extraction and placement of new leads 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 2D echo shows tricuspid valve endocarditis, ID following-antibiotics as below CVVH started 08/03 due to severe acidosis, now transition to HD Prior ICD pocket infection in December 2017 and February 2018. Recently replaced by Dr. Cervantes. Per device rep she did not follow-up device check -Management per senior php software developer -Continue vancomycin, aztreonam per ID. To complete abx 09/17/18 = 09/17. Plan for discharge tomorrow after completing antibiotics today. = 09/18. Discontinue antibiotics having completed treatment course. Cardiology consulted for lead dislodgment. = 09/19 due to multiple lead dislodgment, cardiology pursuing possible transfer to tertiary care center. =09/20. Follow cardiology recommendations. Appreciate assistance. = 09/21. Discussed with electrophysiology. Follow-up recommendations. = 09/22. Discussed with electrophysiology again. electrophysiology recommends discharging home and following up with [facility] as outpatient. Await further recommendations from electrophysiology regarding possible LifeVest. = 09/23. Patient reports that LifeVest did not work in the past, and that she is unable to follow-up with [facility] as an outpatient. Will discuss with case management her transport options. = 09/24. Discussed with case management. Case management able to arrange transport for patient if she is to follow-up with [facility]. Discussed with cardiology and awaiting further recommendations. = 09/25. Small area of wound dehiscence on the lateral border of pacer scar. Nursing to notify Dr. Cervantes. Discussed with case management, Dr. Cervantes this morning prior to seeing patient, and referrals made to other institutions. Appreciate cardiology and case management assistance. =09/26. Cardiology has placed Steri-Strips on pacer incision scar. Consult case management regarding possible referral to [facility]. [facility] looking over clinicals, and has been supplied with Dr. Cervantes's number. Essential hypertension. - continue Amlodipine PM wires dislodged- 08/25 - PM interrogated -per TJ - [employer] rep- wires are all dislodged- occasionally capturing Cardiology consulted- Dr. Edinson Andrade -s/p pacemaker revision (08/29) = 09/17. Patient with heaving involuntary chest motions. Will check EKG. Reconsult cardiology. = 09/18. Status post lead dislodgment again. Psychiatry consulted. Appreciate recommendations. Tricuspid valve endocarditis History of ICD pocket infection most recently with MRSA February 2018. She has undergone device removal on 2 prior occasions. Most recently was removed in February 2018 with wound VAC placement. Device replaced 06/27/18. 2D echo showed tricuspid valve endocarditis while bld cx's are neg Completed Abx 09/17/18 Yeast vaginitis-resolved - s/p diflucan dose; likely 2/2 immunosupression 2/2 steroids Crohn's disease -follow-up with [facility] gastroenterology in the end of August -continue PO steroids Menorrhagia, patient reports is a chronic problem. Hasn't followed up with gynecology in over a year. 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 -Continue Aldactone, potassium replacement and sodium bicarb Hypokalemia -replace as needed Hypernatremia -Improved Systemic lupus erythematosus On chronic steroids -Tapered down from stress dose steroids to chronic baseline dosing Chronic anemia Thrombocytopenia -H&H currently stable, continue to monitor. Hypothyroidism -Continue Synthroid Insomnia continue melatonin Labile mood. per previous notes Patient refusing to be seen by psychiatry doctor. [place]'s dx likely. patient is noted on/off disrupting new AICD as noted with pauses, labs are normal , lytes are normal -continue to monitor PROPH: SCDs for DVT prophylaxis and heparin 5000 units subcu every 8 Protonix 40 mg daily for stress ulcer prophylaxis. Discharge Planning: Patient completed antibiotics 09/17. Pacemaker lead dislodgment noted on 09/17. -Possible transfer to tertiary care center. = Follow-up EP recommendations. EP recommends patient discharged home and follow-up with [facility] as outpatient. = Discussed with case management who can arrange for transport for patient to follow-up with [facility] as outpatient = Discussed with cardiology. Will follow further recommendations regarding LifeVest. = 09/25. Discussed with electrophysiology. Referrals made to tertiary care centers. Discussed with returned case inspector. Follow-up was not arranged with [facility] at this time. Appreciate cardiology and case management assistance. = 09/26. Awaiting answer from [facility] regarding possible transfer, they are looking over her chart and are to get in touch with Dr. Cervantes (3) Hypertension Qualifiers: Hypertension type: essential hypertension Qualified Code(s): I10 - Essential (primary) hypertension (6) SLE (systemic lupus erythematosus) Qualifiers: Systemic lupus erythematosus type: unspecified (7) Chronic pain Qualifiers: Chronic pain type: other chronic pain Qualified Code(s): G89.29 - Other chronic pain
[2018-09-26] MEDS: LORazepam 1 MG Tablet PO SCH (21:35)
[2018-09-26] MEDS: Melatonin 5 MG Tablet PO SCH (21:35)
[2018-09-27] MEDS: Levothyroxine 112 MCG Tablet PO SCH (05:28)
[2018-09-27] MEDS: Heparin - SQ 10,000 UNITS/ML Vial SQ SCH ×3 (05:29→21:40)
[2018-09-27] MEDS: Lisinopril 5 MG Tablet PO SCH (08:55)
[2018-09-27] MEDS: amLODIPine 5 MG Tablet PO SCH (08:55)
[2018-09-27] MEDS: Morphine Sulfate 15 MG SR Tablet PO SCH ×2 (08:56→21:39)
[2018-09-27] MEDS: Sodium Bicarbonate 650 MG Tablet PO SCH ×3 (08:56→18:32)
[2018-09-27] MEDS: predniSONE 20 MG Tablet PO SCH (08:57)
[2018-09-27] MEDS: Spironolactone 25 MG Tablet PO SCH ×2 (09:02→18:32)
[2018-09-27] MEDS: Heparin Central Flush 100 UNIT/ML 5 ML Vial IV.FLUSH SCH (09:02)
[2018-09-27] MEDS: Senna/Docusate Sodium 8.6/50 MG Tablet PO SCH ×2 (13:00→21:40)
--- NOTE | 2018-09-27 18:53 | P.PNIM ---
Subjective Interval history: 42-year-old female with past medical history of systemic lupus erythematosus, chronic pain, Crohn's disease, hypothyroidism, endometriosis, gastroparesis, chronic kidney disease stage III, interstitial cystitis, Brugada syndrome with ICD replaced 06/27/[address] Cervantes. Initially admitted for weakness and found to have symptomatic bradycardia, ultimately diagnosed with AICD malfunction and endocarditis. Now being seen for follow up. She again reports generalized pain/sensitivity. No chest pressure. No shortness of breath. Physical Exam Vital signs: Vital Signs 09/26/18 20:00 09/27/18 00:00 09/27/18 04:00 Temperature 97.9 F 97.9 F 97.9 F Pulse Rate 84 81 94 H Respiratory Rate 18 20 20 Blood Pressure 108/61 121/65 136/64 Pulse Oximetry 98 98 99 09/27/18 08:00 09/27/18 12:00 09/27/18 16:00 Temperature 98.0 F 98.1 F Pulse Rate 61 67 56 L Respiratory Rate 16 16 Blood Pressure 104/70 108/60 Pulse Oximetry 96 96 Intake & Output 09/26/18 09/27/18 09/27/18 18:59 06:59 18:59 Intake Total 520 / 520 480 / 480 Output Total 1600 / 1600 Balance -1080 / -1080 480 / 480 Weight 76.5 kg Intake: Oral 520 / 520 480 / 480 Output: Urine 1600 / 1600 Other: # Voids 6 Date of Last Bowel Movement 09/22/18 09/26/18 09/26/18 # Bowel Movements 1 - Constitutional no acute distress, average body habitus, cooperative - Routine HEENT Exam Head: Present: normocephalic, atraumatic ENT: Present: mucous membranes moist - Routine Respiratory Exam Present: CTA bilaterally. Absent: accessory muscle use, wheezes, crackles - Routine Cardiovascular Exam Present: RRR, S1, S2. Absent: murmur - Routine Abdominal Exam Present: soft. Absent: tenderness, distended - Routine Extremities Exam Present: tenderness (of multiple sites on BUE and BLE). Absent: cyanosis, edema - Routine Skin Exam Present: intact. Absent: erythema, rash - Routine Neurological Exam Present: alert, oriented X3 - Urinary Catheter Management Indwelling Urethral Catheter Cath placed during this visit: yes, but has since been removed by the nurse Reason for continuing: Decision to DC catheter Removal date: 08/07/18 Removal time: 18:00 Results - Labs CBC & Chem 7: 10/03/18 06:00 10/04/18 05:30 Assessment and Plan - Plan 42-year-old female with History of chronic pain syndrome Possible seizures -Continue with morphine slow release 30 mg at night and 15 mg during the day. -Tylenol PRN for additional moderate pain (allergic to Toradol); initially had mild transaminitis which resolved - will repeat CMP in AM -As needed Valium 10 mg p.o. every 8 hours- 5 mg po q8 prn AICD malfunction/probable dislodged pacemaker lead, status post lead extraction and placement of new leads 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 2D echo showed tricuspid valve endocarditis, now s/p antibiotic treatment CVVH started 08/03 due to severe acidosis, now transition to HD Prior ICD pocket infection in December 2017 and February 2018. Recently replaced by Dr. Cervantes. Per device rep she did not follow-up device check -Management per tar pot man -Completed course of vancomycin, aztreonam per ID on 09/17/18 Complicated problem course summarized below = 09/17. Plan for discharge tomorrow after completing antibiotics today. = 09/18. Discontinued antibiotics having completed treatment course. Cardiology consulted for lead dislodgment. = 09/19 due to multiple lead dislodgment, cardiology pursuing possible transfer to tertiary care center. =09/20. Follow cardiology recommendations. Appreciate assistance. = 09/21. Discussed with electrophysiology. Follow-up recommendations. = 09/22. Discussed with electrophysiology again. electrophysiology recommends discharging home and following up with [facility] as outpatient. Await further recommendations from electrophysiology regarding possible LifeVest. = 09/23. Patient reports that LifeVest did not work in the past, and that she is unable to follow-up with [facility] as an outpatient. Will discuss with case management her transport options. = 09/24. Discussed with case management. Case management able to arrange transport for patient if she is to follow-up with [facility]. Discussed with cardiology and awaiting further recommendations. = 09/25. Small area of wound dehiscence on the lateral border of pacer scar. Nursing to notify Dr. Cervantes. Discussed with case management, Dr. Cervantes this morning prior to seeing patient, and referrals made to other institutions. Appreciate cardiology and case management assistance. =09/26. Cardiology has placed Steri-Strips on pacer incision scar. Consult case management regarding possible referral to [facility]. [facility] looking over clinicals, and has been supplied with Dr. Cervantes's number. =09/27 Per CM still awaiting [facility] evaluation of clinical case Essential hypertension. -In good control, continue Amlodipine PM wires dislodged- 08/25 - PM interrogated -per TJ - [employer] rep- wires are all dislodged- occasionally capturing Cardiology consulted- Dr. Edinson Andrade -s/p pacemaker revision (08/29) = 09/17. Patient with heaving involuntary chest motions. Will check EKG. Reconsult cardiology. = 09/18. Status post lead dislodgment again. Psychiatry consulted. Appreciate recommendations. Tricuspid valve endocarditis History of ICD pocket infection most recently with MRSA February 2018. She has undergone device removal on 2 prior occasions. Most recently was removed in February 2018 with wound VAC placement. Device replaced 06/27/18. 2D echo showed tricuspid valve endocarditis while bld cx's are neg Completed Abx 09/17/18 Yeast vaginitis-resolved - s/p diflucan dose; likely 2/2 immunosupression 2/2 steroids Crohn's disease -follow-up with [facility] gastroenterology in the end of August -continue PO steroids Menorrhagia, patient reports is a chronic problem. Hasn't followed up with gynecology in over a year. 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 -Continue Aldactone, potassium replacement and sodium bicarb Hypokalemia -replace as needed Hypernatremia -Improved Systemic lupus erythematosus On chronic steroids -Tapered down from stress dose steroids to chronic baseline dosing Chronic anemia Thrombocytopenia -H&H currently stable, continue to monitor. Hypothyroidism -Continue Synthroid Insomnia continue melatonin Labile mood. per previous notes Patient refusing to be seen by psychiatry doctor. [place]'s dx likely. patient is noted on/off disrupting new AICD as noted with pauses, labs are normal , lytes are normal -continue to monitor PROPH: SCDs for DVT prophylaxis and heparin 5000 units subcu every 8 Protonix 40 mg daily for stress ulcer prophylaxis. Discharge Planning: At this point awaiting [facility] to evaluate for transfer to other specialty care facility per electrophysiology recommendations. [facility] currently evaluating clinical case, appreciate assistance of CM and electrophysiology team for this complicated disposition. If OR not accepting may need to consider other options for outpatient follow up / LifeVest. Will depend on electrophysiology recommendation.
[2018-09-27] MEDS: LORazepam 1 MG Tablet PO SCH (21:38)
[2018-09-27] MEDS: Melatonin 5 MG Tablet PO SCH (21:38)
[2018-09-28] MEDS: Levothyroxine 112 MCG Tablet PO SCH (06:10)
[2018-09-28] MEDS: Heparin - SQ 10,000 UNITS/ML Vial SQ SCH ×3 (06:38→21:09)
[2018-09-28 07:04] LABS: Alanine Aminotransferase 8 U/L (10-53); Anion Gap 5 meq/L (5-15); Aspartate Aminotransferase 10 U/L (15-37); Blood Urea Nitrogen 27 mg/dL (7-18); Calcium 8.8 mg/dL (8.5-10.1); Carbon Dioxide 27.9 meq/L (21.0-32.0); Chloride 106 meq/L (98-107); Glomerular Filtration Rate 46 mL/min (>89); Glucose,Random 84 mg/dL (74-106); Potassium 4.1 meq/L (3.5-5.1); Sodium 139 meq/L (136-145)
[2018-09-28 07:06] LABS: Alkaline Phosphatase 54 U/L (45-117); Total Protein 6.6 g/dL (6.4-8.2)
[2018-09-28] MEDS: Lisinopril 5 MG Tablet PO SCH (09:50)
[2018-09-28] MEDS: Morphine Sulfate 15 MG SR Tablet PO SCH ×2 (09:50→21:11)
[2018-09-28] MEDS: amLODIPine 5 MG Tablet PO SCH (09:51)
[2018-09-28] MEDS: Sodium Bicarbonate 650 MG Tablet PO SCH ×3 (09:51→19:35)
[2018-09-28] MEDS: predniSONE 20 MG Tablet PO SCH (09:51)
[2018-09-28] MEDS: Heparin Central Flush 100 UNIT/ML 5 ML Vial IV.FLUSH SCH (09:52)
[2018-09-28] MEDS: Senna/Docusate Sodium 8.6/50 MG Tablet PO SCH ×2 (09:53→21:11)
[2018-09-28] MEDS: Spironolactone 25 MG Tablet PO SCH ×2 (09:56→19:35)
--- NOTE | 2018-09-28 10:39 | P.PN ---
Subjective Interval history: This is a pleasant 42 y/o Female with past medical history of systemic Lupus Erythematosus, chronic pain syndrome, Crohn's disease, hypothyroidism, endometriosis, gastroparesis, chronic kidney disease stage III, interstitial cystitis, Brugada syndrome with ICD replaced 06/27/[address] Cervantes. Initially admitted for weakness and found to have symptomatic bradycardia, ultimately diagnosed with AICD malfunction and endocarditis. 09/28: Seen in her bedroom, no complaint awaiting final by Cardiology she is supposed to be transferred to [facility] but her admitting physician at that facility is not able to take care of him until 10/01/18. Physical Exam Vital signs: Vital Signs 09/27/18 12:00 09/27/18 16:00 09/27/18 20:00 Temperature 98.1 F 98.3 F 98.0 F Pulse Rate 67 66 116 H Respiratory Rate 16 16 20 Blood Pressure 108/60 106/61 126/57 L Pulse Oximetry 96 97 98 09/27/18 22:31 09/28/18 00:00 09/28/18 04:00 Temperature 97.8 F 98.1 F Pulse Rate 50 L 45 L Respiratory Rate 19 18 18 Blood Pressure 111/54 L 100/53 L Pulse Oximetry 98 96 Intake & Output 09/27/18 09/28/18 09/28/18 18:59 06:59 18:59 Intake Total 380 / 380 663 / 663 Output Total 1600 / 1600 Balance -1220 / -1220 663 / 663 Weight 75.9 kg Intake: Oral 380 / 380 663 / 663 Output: Urine 1600 / 1600 Other: # Voids 6 Date of Last Bowel Movement 09/26/18 09/28/18 # Bowel Movements 1 1 Narrative: GENERAL: Patient lying in bed. Appears comfortable. Alert and oriented x3. SKIN: Warm and dry. NECK: Supple, trachea midline. No JVD. CARDIOVASCULAR: Regular rate and rhythm. RESPIRATORY: Breath sounds equal bilaterally. No accessory muscle use. Left upper chest Steri-Strips removed. Surgical scar with Steri-Strips intact. No surrounding erythema or induration. GASTROINTESTINAL: Abdomen soft, non-tender, nondistended. MUSCULOSKELETAL: No cyanosis, or edema. BACK: Nontender without obvious deformity. No CVA tenderness. - Urinary Catheter Management Indwelling Urethral Catheter Cath placed during this visit: yes, but has since been removed by the nurse Reason for continuing: Decision to DC catheter Removal date: 08/07/18 Removal time: 18:00 Results - Labs CBC & Chem 7: 09/22/18 06:49 09/28/18 06:10 Laboratory Results - last 24 hr 09/28/18 06:10 Sodium 139 Potassium 4.1 Chloride 106 Carbon Dioxide 27.9 Anion Gap 5 BUN 27 H Creatinine 1.28 H Estimated GFR 46 L Random Glucose 84 Calcium 8.8 Total Bilirubin 0.2 AST 10 L ALT 8 L Alkaline Phosphatase 54 Total Protein 6.6 Albumin 3.0 L - Imaging Central Venous Line 08/17/18 15:16 CONCLUSION: 1. Uncomplicated midline placement. PICC Line Insertion 08/22/18 10:03 CONCLUSION: 1. Uncomplicated central venous Power PICC line placement. 2. The PICC line can be used immediately. Chest X-Ray 08/29/18 00:00 CONCLUSION: No acute cardiopulmonary process. - Procedures None Assessment and Plan - Assessment (1) Endocarditis of tricuspid valve Code(s): I36.8 - Other nonrheumatic tricuspid valve disorders Status: Acute (2) Brugada syndrome Code(s): I49.8 - Other specified cardiac arrhythmias Status: Resolved (3) Hypertension Code(s): I10 - Essential (primary) hypertension Status: Chronic (4) ICD (implantable cardioverter-defibrillator) malfunction Code(s): T82.118A - Breakdown (mechanical) of other cardiac electronic device, initial encounter Status: Acute (5) Medical non-compliance Code(s): Z91.19 - Patient's noncompliance with other medical treatment and regimen Status: Acute (6) SLE (systemic lupus erythematosus) Code(s): M32.9 - Systemic lupus erythematosus, unspecified Status: Chronic (7) Chronic pain Code(s): G89.29 - Other chronic pain Status: Chronic (8) Acute kidney injury superimposed on CKD Code(s): N17.9 - Acute kidney failure, unspecified; N18.9 - Chronic kidney disease, unspecified Status: Acute - Plan 42-year-old female with History of chronic pain syndrome Possible seizures -Continue with morphine slow release 30 mg at night and 15 mg during the day. -Tylenol PRN for additional moderate pain (allergic to Toradol); initially had mild transaminitis which resolved - will repeat CMP in AM -As needed Valium 10 mg p.o. every 8 hours- 5 mg po q8 prn AICD malfunction/probable dislodged pacemaker lead, status post lead extraction and placement of new leads 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 2D echo showed tricuspid valve endocarditis, now s/p antibiotic treatment CVVH started 08/03 due to severe acidosis, now transition to HD Prior ICD pocket infection in December 2017 and February 2018. Recently replaced by Dr. Cervantes. Per device rep she did not follow-up device check -Management per material preparation worker -Completed course of vancomycin, aztreonam per ID on 09/17/18 Complicated problem course summarized below = 09/18. Cardiology consulted for lead dislodgment. = 09/19 due to multiple lead dislodgment, cardiology pursuing possible transfer to tertiary care center. = 09/22. Discussed with electrophysiology again. electrophysiology recommends discharging home and following up with [facility] as outpatient. Await further recommendations from electrophysiology regarding possible LifeVest. = 09/23. Patient reports that LifeVest did not work in the past, and that she is unable to follow-up with [facility] as an outpatient. Will discuss with case management her transport options. = 09/24. Discussed with case management. Case management able to arrange transport for patient if she is to follow-up with [facility]. Discussed with cardiology and awaiting further recommendations. = 09/25. Small area of wound dehiscence on the lateral border of pacer scar. Nursing to notify Dr. Cervantes. Discussed with case management, Dr. Cervantes this morning prior to seeing patient, and referrals made to other institutions. Appreciate cardiology and case management assistance. =09/26. Cardiology has placed Steri-Strips on pacer incision scar. Consult case management regarding possible referral to [facility]. [facility] looking over clinicals, and has been supplied with Dr. Cervantes's number. =09/27 Per CM still awaiting [facility] evaluation of clinical case Essential hypertension. -In good control, continue Amlodipine PM wires dislodged- 08/25 - PM interrogated -per TJ - [employer] rep- wires are all dislodged- occasionally capturing Cardiology consulted- Dr. Edinson Andrade -s/p pacemaker revision (08/29) = 09/17. Patient with heaving involuntary chest motions. Will check EKG. Reconsult cardiology. = 09/18. Status post lead dislodgment again. Psychiatry consulted. Appreciate recommendations. Tricuspid valve endocarditis History of ICD pocket infection most recently with MRSA February 2018. She has undergone device removal on 2 prior occasions. Most recently was removed in February 2018 with wound VAC placement. Device replaced 06/27/18. 2D echo showed tricuspid valve endocarditis while bld cx's are neg Completed Abx 09/17/18 Yeast vaginitis-resolved - s/p diflucan dose; likely 2/2 immunosupression 2/2 steroids Crohn's disease -follow-up with [facility] gastroenterology in the end of August -continue PO steroids Menorrhagia, patient reports is a chronic problem. Hasn't followed up with gynecology in over a year. Endometriosis -h/h stable, f/u outpt w/ podopediatrician Chronic kidney disease stage III -Nephrology following; Currently patient has a right femoral Vas-Cath. -Continue Aldactone, potassium replacement and sodium bicarb Hypokalemia -replace as needed Hypernatremia -Improved Systemic lupus erythematosus On chronic steroids -Tapered down from stress dose steroids to chronic baseline dosing Chronic anemia Thrombocytopenia -H&H currently stable, continue to monitor. Hypothyroidism -Continue Synthroid Insomnia continue melatonin Labile mood. per previous notes Patient refusing to be seen by psychiatry doctor. 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 patient is noted on/off disrupting new AICD as noted with pauses, labs are normal , lytes are normal -continue to monitor PROPH: SCDs for DVT prophylaxis and heparin 5000 units subcu every 8 Protonix 40 mg daily for stress ulcer prophylaxis. Code Status: Full Code. Discussed Condition With: patient and nurse Discharge Planning: At this point awaiting [facility] to evaluate for transfer to other specialty care facility per electrophysiology recommendations. [facility] currently evaluating clinical case, appreciate assistance of CM and electrophysiology team for this complicated disposition. If [facility] not accepting may need to consider other options for outpatient follow up / LifeVest. Will depend on electrophysiology recommendation. (3) Hypertension Qualifiers: Hypertension type: essential hypertension Qualified Code(s): I10 - Essential (primary) hypertension (6) SLE (systemic lupus erythematosus) Qualifiers: Systemic lupus erythematosus type: unspecified (7) Chronic pain Qualifiers: Chronic pain type: other chronic pain Qualified Code(s): G89.29 - Other chronic pain
--- NOTE | 2018-09-28 11:35 | P.PNNP ---
Subjective Interval history: Patient is alert, no SOB, mild pain at PPM site. Physical Exam Vital signs: Vital Signs 09/27/18 12:00 09/27/18 16:00 09/27/18 20:00 Temperature 98.1 F 98.3 F 98.0 F Pulse Rate 67 66 116 H Respiratory Rate 16 16 20 Blood Pressure 108/60 106/61 126/57 L Pulse Oximetry 96 97 98 09/27/18 22:31 09/28/18 00:00 09/28/18 04:00 Temperature 97.8 F 98.1 F Pulse Rate 50 L 45 L Respiratory Rate 19 18 18 Blood Pressure 111/54 L 100/53 L Pulse Oximetry 98 96 Intake & Output 09/27/18 09/28/18 09/28/18 18:59 06:59 18:59 Intake Total 380 / 380 663 / 663 Output Total 1600 / 1600 Balance -1220 / -1220 663 / 663 Weight 75.9 kg Intake: Oral 380 / 380 663 / 663 Output: Urine 1600 / 1600 Other: # Voids 6 Date of Last Bowel Movement 09/26/18 09/28/18 # Bowel Movements 1 1 Narrative: GENERAL: Patient lying in bed. Appears comfortable. Alert and oriented x3. SKIN: Warm and dry. NECK: Supple, trachea midline. No JVD. CARDIOVASCULAR: Regular rate and rhythm. RESPIRATORY: Breath sounds equal bilaterally. No accessory muscle use. Left upper chest Steri-Strips removed. Surgical scar with Steri-Strips intact. No surrounding erythema or induration. GASTROINTESTINAL: Abdomen soft, non-tender, nondistended. MUSCULOSKELETAL: No cyanosis, or edema. BACK: Nontender without obvious deformity. No CVA tenderness. - Urinary Catheter Management Indwelling Urethral Catheter Cath placed during this visit: yes, but has since been removed by the nurse Reason for continuing: Decision to DC catheter Removal date: 08/07/18 Removal time: 18:00 Assessment and Plan - Assessment (1) Acute kidney injury superimposed on CKD Code(s): N17.9 - Acute kidney failure, unspecified; N18.9 - Chronic kidney disease, unspecified Status: Acute Plan: Patient has now Creatinine of 1.2. K is normal, and acidosis is better. Has Mild chronic kidney disease and RTA. Continue K and NaHco3 and Aldactone. (2) Hypertension Code(s): I10 - Essential (primary) hypertension Status: Chronic Qualifiers: Hypertension type: essential hypertension Qualified Code(s): I10 - Essential (primary) hypertension Plan: On lower side, will monitor (3) Endocarditis of tricuspid valve Code(s): I36.8 - Other nonrheumatic tricuspid valve disorders Status: Acute Plan: Antibiotics completed - Plan l
[2018-09-28] MEDS: LORazepam 1 MG Tablet PO SCH (21:11)
[2018-09-28] MEDS: Melatonin 5 MG Tablet PO SCH (21:12)
[2018-09-29] MEDS: Heparin - SQ 10,000 UNITS/ML Vial SQ SCH ×3 (06:13→23:22)
[2018-09-29] MEDS: Levothyroxine 112 MCG Tablet PO SCH (06:17)
[2018-09-29] MEDS: amLODIPine 5 MG Tablet PO SCH (09:42)
[2018-09-29] MEDS: Sodium Bicarbonate 650 MG Tablet PO SCH ×3 (09:42→18:40)
[2018-09-29] MEDS: Heparin Central Flush 100 UNIT/ML 5 ML Vial IV.FLUSH SCH (09:42)
[2018-09-29] MEDS: Morphine Sulfate 15 MG SR Tablet PO SCH ×2 (09:43→20:38)
[2018-09-29] MEDS: Lisinopril 5 MG Tablet PO SCH (09:43)
[2018-09-29] MEDS: Senna/Docusate Sodium 8.6/50 MG Tablet PO SCH ×2 (09:45→20:45)
[2018-09-29] MEDS: Spironolactone 25 MG Tablet PO SCH ×2 (09:57→18:44)
[2018-09-29] MEDS: predniSONE 20 MG Tablet PO SCH (09:57)
--- NOTE | 2018-09-29 17:12 | P.PN ---
Subjective Interval history: This is a pleasant 42 y/o Female with past medical history of systemic Lupus Erythematosus, chronic pain syndrome, Crohn's disease, hypothyroidism, endometriosis, gastroparesis, chronic kidney disease stage III, interstitial cystitis, Brugada syndrome with ICD replaced 06/27/[address] Cervantes. Initially admitted for weakness and found to have symptomatic bradycardia, ultimately diagnosed with AICD malfunction and endocarditis. 09/28: Seen in her bedroom, no complaint awaiting final by Cardiology she is supposed to be transferred to [facility] but her admitting physician at that facility is not able to take care of him until 10/01/18. 09/29: No nausea, vomit or diarrhea, awaiting final for transfer to tertiary center. Physical Exam Vital signs: Vital Signs 09/28/18 20:00 09/29/18 00:00 09/29/18 04:00 Temperature 98.1 F 97.9 F Pulse Rate 69 68 Respiratory Rate 20 20 20 Blood Pressure 102/62 120/60 Pulse Oximetry 97 98 09/29/18 08:00 09/29/18 10:15 09/29/18 12:00 Temperature 98.0 F 98.7 F Pulse Rate 95 H 89 Respiratory Rate 16 18 16 Blood Pressure 133/63 133/63 Pulse Oximetry 98 98 Intake & Output 09/28/18 09/29/18 09/29/18 18:59 06:59 18:59 Intake Total 1440 / 1440 120 / 120 Output Total 1800 / 1800 1900 / 1900 Balance -360 / -360 -1780 / -1780 Weight 70.6 kg Intake: Oral 1440 / 1440 120 / 120 Output: Urine 1800 / 1800 1900 / 1900 Other: # Voids 5 Date of Last Bowel Movement 09/28/18 09/28/18 09/28/18 # Bowel Movements 1 Narrative: GENERAL: Patient lying in bed. Appears comfortable. Alert and oriented x3. SKIN: Warm and dry. NECK: Supple, trachea midline. No JVD. CARDIOVASCULAR: Regular rate and rhythm. RESPIRATORY: Breath sounds equal bilaterally. No accessory muscle use. Left upper chest Steri-Strips removed. Surgical scar with Steri-Strips intact. No surrounding erythema or induration. GASTROINTESTINAL: Abdomen soft, non-tender, nondistended. MUSCULOSKELETAL: No cyanosis, or edema. BACK: Nontender without obvious deformity. No CVA tenderness. - Urinary Catheter Management Indwelling Urethral Catheter Cath placed during this visit: yes, but has since been removed by the nurse Reason for continuing: Decision to DC catheter Removal date: 08/07/18 Removal time: 18:00 Results - Labs CBC & Chem 7: 09/22/18 06:49 09/28/18 06:10 - Imaging Central Venous Line 08/17/18 15:16 CONCLUSION: 1. Uncomplicated midline placement. PICC Line Insertion 08/22/18 10:03 CONCLUSION: 1. Uncomplicated central venous Power PICC line placement. 2. The PICC line can be used immediately. Chest X-Ray 08/29/18 00:00 CONCLUSION: No acute cardiopulmonary process. - Procedures None Assessment and Plan - Assessment (1) Endocarditis of tricuspid valve Code(s): I36.8 - Other nonrheumatic tricuspid valve disorders Status: Acute (2) Brugada syndrome Code(s): I49.8 - Other specified cardiac arrhythmias Status: Resolved (3) Hypertension Code(s): I10 - Essential (primary) hypertension Status: Chronic (4) ICD (implantable cardioverter-defibrillator) malfunction Code(s): T82.118A - Breakdown (mechanical) of other cardiac electronic device, initial encounter Status: Acute (5) Medical non-compliance Code(s): Z91.19 - Patient's noncompliance with other medical treatment and regimen Status: Acute (6) SLE (systemic lupus erythematosus) Code(s): M32.9 - Systemic lupus erythematosus, unspecified Status: Chronic (7) Chronic pain Code(s): G89.29 - Other chronic pain Status: Chronic (8) Acute kidney injury superimposed on CKD Code(s): N17.9 - Acute kidney failure, unspecified; N18.9 - Chronic kidney disease, unspecified Status: Acute - Plan 42-year-old female with History of chronic pain syndrome Possible seizures -Continue with morphine slow release 30 mg at night and 15 mg during the day. -Tylenol PRN for additional moderate pain (allergic to Toradol); initially had mild transaminitis which resolved - will repeat CMP in AM -As needed Valium 10 mg p.o. every 8 hours- 5 mg po q8 prn AICD malfunction/probable dislodged pacemaker lead, status post lead extraction and placement of new leads 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 2D echo showed tricuspid valve endocarditis, now s/p antibiotic treatment CVVH started 08/03 due to severe acidosis, now transition to HD Prior ICD pocket infection in December 2017 and February 2018. Recently replaced by Dr. Cervantes. Per device rep she did not follow-up device check -Management per senior interactive developer -Completed course of vancomycin, aztreonam per ID on 09/17/18 Complicated problem course summarized below = 09/18. Cardiology consulted for lead dislodgment. = 09/19 due to multiple lead dislodgment, cardiology pursuing possible transfer to tertiary care center. = 09/22. Discussed with electrophysiology again. electrophysiology recommends discharging home and following up with [facility] as outpatient. Await further recommendations from electrophysiology regarding possible LifeVest. = 09/23. Patient reports that LifeVest did not work in the past, and that she is unable to follow-up with [facility] as an outpatient. Will discuss with case management her transport options. = 09/24. Discussed with case management. Case management able to arrange transport for patient if she is to follow-up with [facility]. Discussed with cardiology and awaiting further recommendations. = 09/25. Small area of wound dehiscence on the lateral border of pacer scar. Nursing to notify Dr. Cervantes. Discussed with case management, Dr. Cervantes this morning prior to seeing patient, and referrals made to other institutions. Appreciate cardiology and case management assistance. =09/26. Cardiology has placed Steri-Strips on pacer incision scar. Consult case management regarding possible referral to [facility]. [facility] looking over clinicals, and has been supplied with Dr. Cervantes's number. =09/27 Per CM still awaiting [facility] evaluation of clinical case Essential hypertension. -In good control, continue Amlodipine PM wires dislodged- 08/25 - PM interrogated -per TJ - [employer] rep- wires are all dislodged- occasionally capturing Cardiology consulted- Dr. Edinson Andrade -s/p pacemaker revision (08/29) = 09/17. Patient with heaving involuntary chest motions. Will check EKG. Reconsult cardiology. = 09/18. Status post lead dislodgment again. Psychiatry consulted. Appreciate recommendations. Tricuspid valve endocarditis History of ICD pocket infection most recently with MRSA February 2018. She has undergone device removal on 2 prior occasions. Most recently was removed in February 2018 with wound VAC placement. Device replaced 06/27/18. 2D echo showed tricuspid valve endocarditis while bld cx's are neg Completed Abx 09/17/18 Yeast vaginitis-resolved - s/p diflucan dose; likely 2/2 immunosupression 2/2 steroids Crohn's disease -follow-up with [facility] gastroenterology in the end of August -continue PO steroids Menorrhagia, patient reports is a chronic problem. Hasn't followed up with gynecology in over a year. 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 -Continue Aldactone, potassium replacement and sodium bicarb Hypokalemia -replace as needed Hypernatremia -Improved Systemic lupus erythematosus On chronic steroids -Tapered down from stress dose steroids to chronic baseline dosing Chronic anemia Thrombocytopenia -H&H currently stable, continue to monitor. Hypothyroidism -Continue Synthroid Insomnia continue melatonin Labile mood. per previous notes Patient refusing to be seen by psychiatry doctor. 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 patient is noted on/off disrupting new AICD as noted with pauses, labs are normal , lytes are normal -continue to monitor PROPH: SCDs for DVT prophylaxis and heparin 5000 units subcu every 8 Protonix 40 mg daily for stress ulcer prophylaxis. No changes to anterior assessment. Code Status: Full code. Discussed Condition With: Patient and Nurse Miss Ward Discharge Planning: At this point awaiting [facility] to evaluate for transfer to other specialty care facility per electrophysiology recommendations. [facility] currently evaluating clinical case, appreciate assistance of CM and electrophysiology team for this complicated disposition. If [facility] not accepting may need to consider other options for outpatient follow up / LifeVest. Will depend on electrophysiology recommendation. (3) Hypertension Qualifiers: Hypertension type: essential hypertension Qualified Code(s): I10 - Essential (primary) hypertension (6) SLE (systemic lupus erythematosus) Qualifiers: Systemic lupus erythematosus type: unspecified (7) Chronic pain Qualifiers: Chronic pain type: other chronic pain Qualified Code(s): G89.29 - Other chronic pain
[2018-09-29] MEDS: Melatonin 5 MG Tablet PO SCH (20:45)
[2018-09-29] MEDS: LORazepam 1 MG Tablet PO SCH (20:45)
[2018-09-30] MEDS: Heparin - SQ 10,000 UNITS/ML Vial SQ SCH ×3 (05:58→21:50)
[2018-09-30] MEDS: Levothyroxine 112 MCG Tablet PO SCH (05:58)
[2018-09-30 06:46] LABS: Calcium 8.1 mg/dL (8.5-10.1); Carbon Dioxide 27.2 meq/L (21.0-32.0)
[2018-09-30] MEDS: Sodium Bicarbonate 650 MG Tablet PO SCH ×3 (08:01→17:41)
[2018-09-30] MEDS: Heparin Central Flush 100 UNIT/ML 5 ML Vial IV.FLUSH SCH (08:01)
[2018-09-30] MEDS: amLODIPine 5 MG Tablet PO SCH (08:02)
[2018-09-30] MEDS: predniSONE 20 MG Tablet PO SCH (08:02)
[2018-09-30] MEDS: Lisinopril 5 MG Tablet PO SCH (08:03)
[2018-09-30] MEDS: Senna/Docusate Sodium 8.6/50 MG Tablet PO SCH ×2 (08:04→20:32)
[2018-09-30] MEDS: Spironolactone 25 MG Tablet PO SCH ×2 (08:04→17:41)
[2018-09-30] MEDS: Morphine Sulfate 15 MG SR Tablet PO SCH ×2 (08:04→20:32)
--- NOTE | 2018-09-30 10:04 | P.PN ---
Subjective Interval history: This is a pleasant 42 y/o Female with past medical history of systemic Lupus Erythematosus, chronic pain syndrome, Crohn's disease, hypothyroidism, endometriosis, gastroparesis, chronic kidney disease stage III, interstitial cystitis, Brugada syndrome with ICD replaced 06/27/[address] Cervantes. Initially admitted for weakness and found to have symptomatic bradycardia, ultimately diagnosed with AICD malfunction and endocarditis. 09/30: Seen in her bedroom, no complaint awaiting final by Cardiology she is supposed to be transferred to [facility] but her admitting physician at that facility is not able to take care of him until 10/01/18. Physical Exam Vital signs: Vital Signs 09/29/18 10:15 09/29/18 12:00 09/29/18 16:00 Temperature 98.7 F 98.4 F Pulse Rate 89 59 L Respiratory Rate 18 16 16 Blood Pressure 133/63 107/52 L Pulse Oximetry 98 99 09/29/18 20:00 09/29/18 21:08 09/30/18 00:00 Temperature 98.2 F 98 F Pulse Rate 77 54 L Respiratory Rate 18 18 20 Blood Pressure 100/54 L 111/56 L Pulse Oximetry 97 98 09/30/18 04:00 Temperature 97.9 F Pulse Rate 66 Respiratory Rate 18 Blood Pressure 105/54 L Pulse Oximetry 96 Intake & Output 09/29/18 09/30/18 09/30/18 18:59 06:59 18:59 Intake Total 480 / 480 210 / 210 Output Total 1999 Balance 480 / 480 -1790 / -1790 Weight 70.6 kg Intake: Oral 480 / 480 210 / 210 Output: Urine 1999 Other: # Voids 3 Date of Last Bowel Movement 09/28/18 09/29/18 # Bowel Movements 1 Narrative: GENERAL: Patient lying in bed. Appears comfortable. Alert and oriented x3. SKIN: Warm and dry. NECK: Supple, trachea midline. No JVD. CARDIOVASCULAR: Regular rate and rhythm. RESPIRATORY: Breath sounds equal bilaterally. No accessory muscle use. Left upper chest Steri-Strips removed. Surgical scar with Steri-Strips intact. No surrounding erythema or induration. GASTROINTESTINAL: Abdomen soft, non-tender, nondistended. MUSCULOSKELETAL: No cyanosis, or edema. BACK: Nontender without obvious deformity. No CVA tenderness. - Urinary Catheter Management Indwelling Urethral Catheter Cath placed during this visit: yes, but has since been removed by the nurse Reason for continuing: Decision to DC catheter Removal date: 08/07/18 Removal time: 18:00 Results - Labs CBC & Chem 7: 09/22/18 06:49 09/30/18 06:00 Laboratory Results - last 24 hr 09/30/18 06:00 Sodium 140 Potassium 4.0 Chloride 108 H Carbon Dioxide 27.2 Anion Gap 5 BUN 24 H Creatinine 1.27 H Estimated GFR 46 L Random Glucose 84 Calcium 8.1 L - Imaging Central Venous Line 08/17/18 15:16 CONCLUSION: 1. Uncomplicated midline placement. PICC Line Insertion 08/22/18 10:03 CONCLUSION: 1. Uncomplicated central venous Power PICC line placement. 2. The PICC line can be used immediately. Chest X-Ray 08/29/18 00:00 CONCLUSION: No acute cardiopulmonary process. - Procedures None Assessment and Plan - Assessment (1) Endocarditis of tricuspid valve Code(s): I36.8 - Other nonrheumatic tricuspid valve disorders Status: Acute (2) Brugada syndrome Code(s): I49.8 - Other specified cardiac arrhythmias Status: Resolved (3) Hypertension Code(s): I10 - Essential (primary) hypertension Status: Chronic (4) ICD (implantable cardioverter-defibrillator) malfunction Code(s): T82.118A - Breakdown (mechanical) of other cardiac electronic device, initial encounter Status: Acute (5) Medical non-compliance Code(s): Z91.19 - Patient's noncompliance with other medical treatment and regimen Status: Acute (6) SLE (systemic lupus erythematosus) Code(s): M32.9 - Systemic lupus erythematosus, unspecified Status: Chronic (7) Chronic pain Code(s): G89.29 - Other chronic pain Status: Chronic (8) Acute kidney injury superimposed on CKD Code(s): N17.9 - Acute kidney failure, unspecified; N18.9 - Chronic kidney disease, unspecified Status: Acute - Plan 42-year-old female with History of chronic pain syndrome Possible seizures -Continue with morphine slow release 30 mg at night and 15 mg during the day. -Tylenol PRN for additional moderate pain (allergic to Toradol); initially had mild transaminitis which resolved - will repeat CMP in AM -As needed Valium 10 mg p.o. every 8 hours- 5 mg po q8 prn AICD malfunction/probable dislodged pacemaker lead, status post lead extraction and placement of new leads 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 2D echo showed tricuspid valve endocarditis, now s/p antibiotic treatment CVVH started 08/03 due to severe acidosis, now transition to HD Prior ICD pocket infection in December 2017 and February 2018. Recently replaced by Dr. Cervantes. 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 Cardiology consulted for lead dislodgment. = 09/19 due to multiple lead dislodgment, cardiology pursuing possible transfer to tertiary care center. = 09/22. Discussed with electrophysiology again. electrophysiology recommends discharging home and following up with [facility] as outpatient. Await further recommendations from electrophysiology regarding possible LifeVest. = 09/23. Patient reports that LifeVest did not work in the past, and that she is unable to follow-up with [facility] as an outpatient. Will discuss with case management her transport options. = 09/24. Discussed with case management. Case management able to arrange transport for patient if she is to follow-up with [facility]. Discussed with cardiology and awaiting further recommendations. = 09/25. Small area of wound dehiscence on the lateral border of pacer scar. Nursing to notify Dr. Cervantes. Discussed with case management, Dr. Cervantes this morning prior to seeing patient, and referrals made to other institutions. Appreciate cardiology and case management assistance. =09/26. Cardiology has placed Steri-Strips on pacer incision scar. Consult case management regarding possible referral to [facility]. [facility] looking over clinicals, and has been supplied with Dr. Cervantes's number. =09/27 Per CM still awaiting [facility] evaluation of clinical case Essential hypertension. -In good control, continue Amlodipine PM wires dislodged- 08/25 - PM interrogated -per TJ - [employer] rep- wires are all dislodged- occasionally capturing Cardiology consulted- Dr. Edinson Andrade -s/p pacemaker revision (08/29) = 09/17. Patient with heaving involuntary chest motions. Will check EKG. Reconsult cardiology. = 09/18. Status post lead dislodgment again. Psychiatry consulted. Appreciate recommendations. Tricuspid valve endocarditis History of ICD pocket infection most recently with MRSA February 2018. She has undergone device removal on 2 prior occasions. Most recently was removed in February 2018 with wound VAC placement. Device replaced 06/27/18. 2D echo showed tricuspid valve endocarditis while bld cx's are neg Completed Abx 09/17/18 Yeast vaginitis-resolved - s/p diflucan dose; likely 2/2 immunosupression 2/2 steroids Crohn's disease -follow-up with [facility] gastroenterology in the end of August -continue PO steroids Menorrhagia, patient reports is a chronic problem. Hasn't followed up with gynecology in over a year. Endometriosis -h/h stable, f/u outpt w/ histological illustrator Chronic kidney disease stage III -Nephrology following; Currently patient has a right femoral Vas-Cath. -Continue Aldactone, potassium replacement and sodium bicarb Hypokalemia -replace as needed Hypernatremia -Improved Systemic lupus erythematosus On chronic steroids -Tapered down from stress dose steroids to chronic baseline dosing Chronic anemia Thrombocytopenia -H&H currently stable, continue to monitor. Hypothyroidism -Continue Synthroid Insomnia continue melatonin Labile mood. per previous notes Patient refusing to be seen by psychiatry doctor. [place]'s dx likely. patient is noted on/off disrupting new AICD as noted with pauses, labs are normal , lytes are normal -continue to monitor PROPH: SCDs for DVT prophylaxis and heparin 5000 units subcu every 8 Protonix 40 mg daily for stress ulcer prophylaxis. No changes to anterior assessment. Code Status: Full code Discussed Condition With: patient and Nurse Miss Marin Discharge Planning: At this point awaiting [facility] to evaluate for transfer to other specialty care facility per electrophysiology recommendations. [facility] currently evaluating clinical case, appreciate assistance of CM and electrophysiology team for this complicated disposition. If [facility] not accepting may need to consider other options for outpatient follow up / LifeVest. Will depend on electrophysiology recommendation. (3) Hypertension Qualifiers: Hypertension type: essential hypertension Qualified Code(s): I10 - Essential (primary) hypertension (6) SLE (systemic lupus erythematosus) Qualifiers: Systemic lupus erythematosus type: unspecified (7) Chronic pain Qualifiers: Chronic pain type: other chronic pain Qualified Code(s): G89.29 - Other chronic pain
[2018-09-30] MEDS: LORazepam 1 MG Tablet PO SCH (20:30)
[2018-09-30] MEDS: Melatonin 5 MG Tablet PO SCH (20:31)
[2018-10-01] MEDS: Heparin - SQ 10,000 UNITS/ML Vial SQ SCH ×3 (05:26→21:40)
[2018-10-01] MEDS: Levothyroxine 112 MCG Tablet PO SCH (06:20)
[2018-10-01] MEDS: Spironolactone 25 MG Tablet PO SCH ×2 (08:45→17:06)
[2018-10-01] MEDS: Lisinopril 5 MG Tablet PO SCH (08:45)
[2018-10-01] MEDS: amLODIPine 5 MG Tablet PO SCH (08:45)
[2018-10-01] MEDS: predniSONE 20 MG Tablet PO SCH (08:45)
[2018-10-01] MEDS: Morphine Sulfate 15 MG SR Tablet PO SCH ×2 (08:46→21:38)
[2018-10-01] MEDS: Sodium Bicarbonate 650 MG Tablet PO SCH ×3 (08:46→17:06)
[2018-10-01] MEDS: Heparin Central Flush 100 UNIT/ML 5 ML Vial IV.FLUSH SCH (08:47)
[2018-10-01] MEDS: Senna/Docusate Sodium 8.6/50 MG Tablet PO SCH ×2 (08:47→21:40)
--- NOTE | 2018-10-01 13:35 | P.PN ---
Subjective Interval history: This is a pleasant 42 y/o Female with past medical history of systemic Lupus Erythematosus, chronic pain syndrome, Crohn's disease, hypothyroidism, endometriosis, gastroparesis, chronic kidney disease stage III, interstitial cystitis, Brugada syndrome with ICD replaced 06/27/[address] Cervantes. Initially admitted for weakness and found to have symptomatic bradycardia, ultimately diagnosed with AICD malfunction and endocarditis. 10/01: Seen in her bedroom, no complaint awaiting final by Cardiology she is supposed to be transferred to [facility] but her admitting physician at that facility is not able to take care of him until Today. Physical Exam Vital signs: Vital Signs 09/30/18 16:00 09/30/18 20:00 10/01/18 00:00 Temperature 97.8 F 98.7 F 98.2 F Pulse Rate 72 62 101 H Respiratory Rate 16 20 18 Blood Pressure 101/57 L 111/57 L 104/58 L Pulse Oximetry 99 98 97 10/01/18 04:00 10/01/18 08:00 10/01/18 12:00 Temperature 98 F 98.3 F 98.3 F Pulse Rate 73 57 L 84 Respiratory Rate 20 17 17 Blood Pressure 92/55 L 105/62 116/53 L Pulse Oximetry 98 99 98 Intake & Output 09/30/18 10/01/18 10/01/18 18:59 06:59 18:59 Intake Total 480 / 480 210 / 210 Output Total 1999 Balance 480 / 480 -1790 / -1790 Intake: Oral 480 / 480 210 / 210 Output: Urine 1999 Other: # Voids 3 Date of Last Bowel Movement 09/29/18 09/29/18 Narrative: GENERAL: Patient lying in bed. Appears comfortable. Alert and oriented x3. SKIN: Warm and dry. NECK: Supple, trachea midline. No JVD. CARDIOVASCULAR: Regular rate and rhythm. RESPIRATORY: Breath sounds equal bilaterally. No accessory muscle use. Left upper chest Steri-Strips removed. Surgical scar with Steri-Strips intact. No surrounding erythema or induration. GASTROINTESTINAL: Abdomen soft, non-tender, nondistended. MUSCULOSKELETAL: No cyanosis, or edema. BACK: Nontender without obvious deformity. No CVA tenderness. - Urinary Catheter Management Indwelling Urethral Catheter Cath placed during this visit: yes, but has since been removed by the nurse Reason for continuing: Decision to DC catheter Removal date: 08/07/18 Removal time: 18:00 Results - Labs CBC & Chem 7: 09/22/18 06:49 09/30/18 06:00 - Imaging Central Venous Line 08/17/18 15:16 CONCLUSION: 1. Uncomplicated midline placement. PICC Line Insertion 08/22/18 10:03 CONCLUSION: 1. Uncomplicated central venous Power PICC line placement. 2. The PICC line can be used immediately. Chest X-Ray 08/29/18 00:00 CONCLUSION: No acute cardiopulmonary process. - Procedures None Assessment and Plan - Assessment (1) Endocarditis of tricuspid valve Code(s): I36.8 - Other nonrheumatic tricuspid valve disorders Status: Acute (2) Brugada syndrome Code(s): I49.8 - Other specified cardiac arrhythmias Status: Resolved (3) Hypertension Code(s): I10 - Essential (primary) hypertension Status: Chronic (4) ICD (implantable cardioverter-defibrillator) malfunction Code(s): T82.118A - Breakdown (mechanical) of other cardiac electronic device, initial encounter Status: Acute (5) Medical non-compliance Code(s): Z91.19 - Patient's noncompliance with other medical treatment and regimen Status: Acute (6) SLE (systemic lupus erythematosus) Code(s): M32.9 - Systemic lupus erythematosus, unspecified Status: Chronic (7) Chronic pain Code(s): G89.29 - Other chronic pain Status: Chronic (8) Acute kidney injury superimposed on CKD Code(s): N17.9 - Acute kidney failure, unspecified; N18.9 - Chronic kidney disease, unspecified Status: Acute - Plan 42-year-old female with History of chronic pain syndrome Possible seizures -Continue with morphine slow release 30 mg at night and 15 mg during the day. -Tylenol PRN for additional moderate pain (allergic to Toradol); initially had mild transaminitis which resolved -As needed Valium 10 mg p.o. every 8 hours- 5 mg po q8 prn AICD malfunction/probable dislodged pacemaker lead, status post lead extraction and placement of new leads 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 2D echo showed tricuspid valve endocarditis, now s/p antibiotic treatment CVVH started 08/03 due to severe acidosis, now transition to HD Prior ICD pocket infection in December 2017 and February 2018. Recently replaced by Dr. Cervantes. 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 Cardiology consulted for lead dislodgment. = 09/19 due to multiple lead dislodgment, cardiology pursuing possible transfer to tertiary care center. = 09/22. Discussed with electrophysiology again. electrophysiology recommends discharging home and following up with [facility] as outpatient. Await further recommendations from electrophysiology regarding possible LifeVest. = 09/23. Patient reports that LifeVest did not work in the past, and that she is unable to follow-up with [facility] as an outpatient. Will discuss with case management her transport options. = 09/24. Discussed with case management. Case management able to arrange transport for patient if she is to follow-up with [facility]. Discussed with cardiology and awaiting further recommendations. = 09/25. Small area of wound dehiscence on the lateral border of pacer scar. Nursing to notify Dr. Cervantes. Discussed with case management, Dr. Cervantes this morning prior to seeing patient, and referrals made to other institutions. Appreciate cardiology and case management assistance. =09/26. Cardiology has placed Steri-Strips on pacer incision scar. Consult case management regarding possible referral to [facility]. [facility] looking over clinicals, and has been supplied with Dr. Cervantes's number. =09/27 Per CM still awaiting [facility] evaluation of clinical case Essential hypertension. -In good control, continue Amlodipine PM wires dislodged- 08/25 - PM interrogated -per TJ - [employer] rep- wires are all dislodged- occasionally capturing Cardiology consulted- Dr. Edinson Andrade -s/p pacemaker revision (08/29) = 09/17. Patient with heaving involuntary chest motions. Will check EKG. Reconsult cardiology. = 09/18. Status post lead dislodgment again. Psychiatry consulted. Appreciate recommendations. Tricuspid valve endocarditis History of ICD pocket infection most recently with MRSA February 2018. She has undergone device removal on 2 prior occasions. Most recently was removed in February 2018 with wound VAC placement. Device replaced 06/27/18. 2D echo showed tricuspid valve endocarditis while bld cx's are neg Completed Abx 09/17/18 Yeast vaginitis-resolved - s/p diflucan dose; likely 2/2 immunosupression 2/2 steroids Crohn's disease -follow-up with [facility] gastroenterology in the end of August -continue PO steroids Menorrhagia, patient reports is a chronic problem. Hasn't followed up with gynecology in over a year. 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 -Continue Aldactone, potassium replacement and sodium bicarb Systemic lupus erythematosus On chronic steroids -Tapered down from stress dose steroids to chronic baseline dosing Chronic anemia Thrombocytopenia -H&H currently stable, continue to monitor. Hypothyroidism -Continue Synthroid Insomnia continue melatonin Labile mood. per previous notes Patient refusing to be seen by psychiatry doctor. 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 patient is noted on/off disrupting new AICD as noted with pauses, labs are normal , lytes are normal -continue to monitor PROPH: SCDs for DVT prophylaxis and heparin 5000 units subcu every 8 Protonix 40 mg daily for stress ulcer prophylaxis. No changes to anterior assessment. Code Status: Full code. Discussed Condition With: Patient and Nurse Miss Banegas. Discharge Planning: At this point awaiting [facility] to evaluate for transfer to other specialty care facility per electrophysiology recommendations. [facility] currently evaluating clinical case, appreciate assistance of CM and electrophysiology team for this complicated disposition. If [facility] not accepting may need to consider other options for outpatient follow up / LifeVest. Will depend on electrophysiology recommendation. (3) Hypertension Qualifiers: Hypertension type: essential hypertension Qualified Code(s): I10 - Essential (primary) hypertension (6) SLE (systemic lupus erythematosus) Qualifiers: Systemic lupus erythematosus type: unspecified (7) Chronic pain Qualifiers: Chronic pain type: other chronic pain Qualified Code(s): G89.29 - Other chronic pain
[2018-10-01] MEDS: LORazepam 1 MG Tablet PO SCH (21:39)
[2018-10-01] MEDS: Melatonin 5 MG Tablet PO SCH (21:39)
[2018-10-02] MEDS: Levothyroxine 112 MCG Tablet PO SCH (06:09)
[2018-10-02] MEDS: Heparin - SQ 10,000 UNITS/ML Vial SQ SCH ×3 (07:09→21:15)
[2018-10-02] MEDS: predniSONE 20 MG Tablet PO SCH (08:16)
[2018-10-02] MEDS: Lisinopril 5 MG Tablet PO SCH (08:16)
[2018-10-02] MEDS: Spironolactone 25 MG Tablet PO SCH ×2 (08:16→17:10)
[2018-10-02] MEDS: amLODIPine 5 MG Tablet PO SCH (08:16)
[2018-10-02] MEDS: Sodium Bicarbonate 650 MG Tablet PO SCH ×3 (08:17→17:09)
[2018-10-02] MEDS: Senna/Docusate Sodium 8.6/50 MG Tablet PO SCH ×2 (08:17→20:40)
[2018-10-02] MEDS: Morphine Sulfate 15 MG SR Tablet PO SCH ×2 (08:17→20:39)
[2018-10-02] MEDS: Heparin Central Flush 100 UNIT/ML 5 ML Vial IV.FLUSH SCH (08:21)
--- NOTE | 2018-10-02 14:21 | P.PNIM ---
Subjective Interval history: The patient's mother was at the bedside. The patient said that she needed breakthrough pain control. She felt like her right hand was having spasms. She wanted to know if she would be transferred to [facility]. She endorses milk being expressed from her nipples. Discussed with nursing. Physical Exam Vital signs: Vital Signs 10/01/18 16:00 10/01/18 20:00 10/02/18 00:00 Temperature 98.8 F 98.7 F 98.5 F Pulse Rate 102 H 80 110 H Respiratory Rate 16 18 20 Blood Pressure 122/57 L 124/74 113/70 Pulse Oximetry 99 97 96 10/02/18 04:00 10/02/18 08:00 10/02/18 12:00 Temperature 97.7 F 97.8 F 98.4 F Pulse Rate 95 H 56 L 84 Respiratory Rate 20 18 20 Blood Pressure 110/68 104/58 L 110/72 Pulse Oximetry 96 98 96 Intake & Output 10/01/18 10/02/18 10/02/18 18:59 06:59 18:59 Intake Total 960 / 960 950 / 950 Output Total 1800 / 1800 Balance -840 / -840 950 / 950 Weight 71.9 kg Intake: Oral 960 / 960 950 / 950 Output: Urine 1800 / 1800 Other: # Voids 6 Date of Last Bowel Movement 10/01/18 10/01/18 # Bowel Movements 0 Narrative: GENERAL: Patient lying in bed. Appears comfortable. SKIN: Warm and dry. NECK: Supple, trachea midline. No JVD. CARDIOVASCULAR: Regular rate and rhythm. RESPIRATORY: Breath sounds equal bilaterally. No accessory muscle use. Surgical scar with Steri-Strips intact. No surrounding erythema or induration. GASTROINTESTINAL: Abdomen soft, non-tender, nondistended. MUSCULOSKELETAL: No cyanosis, or edema. BACK: Nontender without obvious deformity. No CVA tenderness. - Urinary Catheter Management Indwelling Urethral Catheter Cath placed during this visit: yes, but has since been removed by the nurse Reason for continuing: Decision to DC catheter Removal date: 08/07/18 Removal time: 18:00 Results - Labs CBC & Chem 7: 09/22/18 06:49 09/30/18 06:00 - Procedures None Assessment and Plan - Assessment (1) Endocarditis of tricuspid valve Code(s): I36.8 - Other nonrheumatic tricuspid valve disorders Status: Acute (2) Brugada syndrome Code(s): I49.8 - Other specified cardiac arrhythmias Status: Resolved (3) Hypertension Code(s): I10 - Essential (primary) hypertension Status: Chronic (4) ICD (implantable cardioverter-defibrillator) malfunction Code(s): T82.118A - Breakdown (mechanical) of other cardiac electronic device, initial encounter Status: Acute (5) Medical non-compliance Code(s): Z91.19 - Patient's noncompliance with other medical treatment and regimen Status: Acute (6) SLE (systemic lupus erythematosus) Code(s): M32.9 - Systemic lupus erythematosus, unspecified Status: Chronic (7) Chronic pain Code(s): G89.29 - Other chronic pain Status: Chronic (8) Acute kidney injury superimposed on CKD Code(s): N17.9 - Acute kidney failure, unspecified; N18.9 - Chronic kidney disease, unspecified Status: Acute - Plan History of chronic pain syndrome Possible seizures -Continue with morphine slow release 30 mg at night and 15 mg during the day. -Tylenol PRN for additional moderate pain (allergic to Toradol); initially had mild transaminitis which resolved. Oxycodone for breakthrough. -As needed Valium 10 mg p.o. every 8 hours- 5 mg po q8 prn AICD malfunction/probable dislodged pacemaker lead, status post lead extraction and placement of new leads 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 2D echo showed tricuspid valve endocarditis, now s/p antibiotic treatment CVVH started 08/03 due to severe acidosis, now transition to HD Prior ICD pocket infection in December 2017 and February 2018. Recently replaced by Dr. Cervantes. Per device rep she did not follow-up device check -Management per student services vice president -Completed course of vancomycin, aztreonam per ID on 09/17/18 Complicated problem course summarized below = 09/18. Cardiology consulted for lead dislodgment. = 09/19 due to multiple lead dislodgment, cardiology pursuing possible transfer to tertiary care center. = 09/22. Discussed with electrophysiology again. electrophysiology recommends discharging home and following up with [facility] as outpatient. Await further recommendations from electrophysiology regarding possible LifeVest. = 09/23. Patient reports that LifeVest did not work in the past, and that she is unable to follow-up with [facility] as an outpatient. Will discuss with case management her transport options. = 09/24. Discussed with case management. Case management able to arrange transport for patient if she is to follow-up with [facility]. Discussed with cardiology and awaiting further recommendations. = 09/25. Small area of wound dehiscence on the lateral border of pacer scar. Nursing to notify Dr. Cervantes. Discussed with case management, Dr. Cervantes this morning prior to seeing patient, and referrals made to other institutions. Appreciate cardiology and case management assistance. =09/26. Cardiology has placed Steri-Strips on pacer incision scar. Consult case management regarding possible referral to [facility]. [facility] looking over clinicals, and has been supplied with Dr. Cervantes's number. PM wires dislodged- 08/25 - PM interrogated -per TJ - [employer] rep- wires are all dislodged- occasionally capturing Cardiology consulted- Dr. Edinson Andrade -s/p pacemaker revision (08/29) = 09/17. Patient with heaving involuntary chest motions. Will check EKG. Reconsult cardiology. = 09/18. Status post lead dislodgment again. Psychiatry consulted. Appreciate recommendations. Tricuspid valve endocarditis History of ICD pocket infection most recently with MRSA February 2018. She has undergone device removal on 2 prior occasions. Most recently was removed in February 2018 with wound VAC placement. Device replaced 06/27/18. 2D echo showed tricuspid valve endocarditis while bld cx's are neg Completed Abx 09/17/18 Yeast vaginitis-resolved - s/p Diflucan dose; likely 2/2 immunosupression 2/2 steroids Crohn's disease -follow-up with [facility] gastroenterology in the end of August -continue PO steroids Menorrhagia, patient reports is a chronic problem. Hasn't followed up with gynecology in over a year. Endometriosis Galactorrhea -h/h stable, f/u outpt w/ rivet sticker -will need galactorrhea worked up after above status stabilizes. Chronic kidney disease stage III -Nephrology following; Currently patient has a right femoral Vas-Cath. -Continue Aldactone, potassium replacement and sodium bicarb Systemic lupus erythematosus On chronic steroids -Tapered down from stress dose steroids to chronic baseline dosing Chronic anemia/Thrombocytopenia -H&H currently stable, continue to monitor. PROPH: SCDs for DVT prophylaxis and heparin 5000 units subcu every 8 Protonix 40 mg daily for stress ulcer prophylaxis. Discharge Planning: At this point awaiting [facility] to evaluate for transfer to other specialty care facility per electrophysiology recommendations. [facility] currently evaluating clinical case, appreciate assistance of CM and electrophysiology team for this complicated disposition. (3) Hypertension Qualifiers: Hypertension type: essential hypertension Qualified Code(s): I10 - Essential (primary) hypertension (6) SLE (systemic lupus erythematosus) Qualifiers: Systemic lupus erythematosus type: unspecified (7) Chronic pain Qualifiers: Chronic pain type: other chronic pain Qualified Code(s): G89.29 - Other chronic pain
--- NOTE | 2018-10-02 15:13 | XR ---
EXAM DATE: 10/02/2018 3:10 PM EST AGE/SEX: 42 years / Female INDICATIONS: Chest pain. CLINICAL DATA: This is the patient's initial encounter. Patient reports that signs and symptoms have been present for 3 days and indicates a pain score of 9/10. MEDICAL/SURGICAL HISTORY: . Brugada syndrome, lupus . ICD/ pacemaker COMPARISON: [facility], CHEST 1V SINGLE AP, 08/29/2018. . FINDINGS: The examination demonstrates a PICC which enters from the left arm. The tip of the PICC is in the SVC however the line does loop back on itself within the left subclavian vein. Since prior exam there is been previous exchange of the patient's patient leads. The heart is normal in size. The lungs are clear. The bony structures are intact. CONCLUSION: There is a PICC present. The line does make a loop in the subclavian vein. The catheter tip is in the SVC. The lungs are clear. Electronically signed by: Troy Porter MD 10/02/2018 3:11 PM EST
[2018-10-02 17:12] LABS: Calcium 8.5 mg/dL (8.5-10.1); Magnesium 2.1 mg/dL (1.5-2.5); Phosphorus 3.6 mg/dL (2.5-4.9); Potassium 4.7 meq/L (3.5-5.1)
[2018-10-02] MEDS: LORazepam 1 MG Tablet PO SCH (20:38)
[2018-10-02] MEDS: Melatonin 5 MG Tablet PO SCH (20:39)
[2018-10-03] MEDS: Levothyroxine 112 MCG Tablet PO SCH (05:40)
[2018-10-03] MEDS: Heparin - SQ 10,000 UNITS/ML Vial SQ SCH ×3 (05:40→21:39)
[2018-10-03 06:35] LABS: Hemoglobin 9.6 gm/dL (11.6-15.3); Mean Corpuscular HGB Conc 34.2 % (32.0-36.0); Mean Corpuscular Hemoglobin 31.1 pg (27.0-34.0); Mean Corpuscular Volume 90.9 fL (80.0-100.0); Mean Platelet Volume 7.8 fL (7.0-11.0); Platelet Count 138 th/mm3 (150-450); Red Blood Count 3.08 mil/mm3 (4.00-5.30); Red Cell Distribution Width 15.3 % (11.6-17.2); White Blood Count 10.3 th/mm3 (4.0-11.0)
[2018-10-03 07:00] LABS: Calcium 8.3 mg/dL (8.5-10.1); Magnesium 2.2 mg/dL (1.5-2.5); Phosphorus 3.8 mg/dL (2.5-4.9); Potassium 4.1 meq/L (3.5-5.1)
[2018-10-03] MEDS: Heparin Central Flush 100 UNIT/ML 5 ML Vial IV.FLUSH SCH (09:19)
[2018-10-03] MEDS: Morphine Sulfate 15 MG SR Tablet PO SCH ×2 (09:20→20:54)
[2018-10-03] MEDS: Senna/Docusate Sodium 8.6/50 MG Tablet PO SCH ×2 (09:20→20:54)
[2018-10-03] MEDS: amLODIPine 5 MG Tablet PO SCH (09:21)
[2018-10-03] MEDS: Sodium Bicarbonate 650 MG Tablet PO SCH ×3 (09:21→17:50)
[2018-10-03] MEDS: predniSONE 20 MG Tablet PO SCH (09:21)
--- NOTE | 2018-10-03 10:57 | P.PNNP ---
Subjective Interval history: Sitting up in bed with family at bedside. Voiced many concerns about possible up coming discharge and not having her AICD fixed. Reports some dysuria. <Cher Freeman - Last Filed: 10/03/18 15:25> Physical Exam Vital signs: Vital Signs 10/02/18 12:00 10/02/18 16:00 10/02/18 20:00 Temperature 98.4 F 98.4 F 98.5 F Pulse Rate 84 94 H 85 Respiratory Rate 20 18 19 Blood Pressure 110/72 121/60 105/56 L Pulse Oximetry 96 96 96 10/02/18 23:55 10/03/18 00:00 10/03/18 04:00 Temperature 98.3 F 98.2 F Pulse Rate 85 81 55 L Respiratory Rate 17 19 Blood Pressure 116/57 L 110/59 L Pulse Oximetry 95 96 97 10/03/18 08:00 Temperature 98.3 F Pulse Rate 64 Respiratory Rate 18 Blood Pressure 98/55 L Pulse Oximetry 97 Intake & Output 10/02/18 10/03/18 10/03/18 18:59 06:59 18:59 Intake Total 720 / 720 620 / 620 Output Total 1000 / 1000 1801 / 1801 Balance -280 / -280 -1181 / -1181 Weight 78.5 kg Intake: Oral 720 / 720 620 / 620 Output: Urine 1000 / 1000 1800 / 1800 Stool Other: # Voids 4 Date of Last Bowel Movement 10/01/18 10/02/18 # Bowel Movements 1 Narrative: GENERAL: No distress. Alert and oriented. SKIN: Warm and dry. NECK: Supple, trachea midline. No JVD. CARDIOVASCULAR: Regular rate and rhythm. RESPIRATORY: Breath sounds equal bilaterally. No accessory muscle use. Surgical scar with Steri-Strips intact. No surrounding erythema or induration. GASTROINTESTINAL: Abdomen soft, non-tender, nondistended. MUSCULOSKELETAL: No cyanosis, or edema. BACK: Nontender without obvious deformity. No CVA tenderness. - Urinary Catheter Management Indwelling Urethral Catheter Cath placed during this visit: yes, but has since been removed by the nurse Reason for continuing: Decision to DC catheter Removal date: 08/07/18 Removal time: 18:00 <Cher Freeman - Last Filed: 10/03/18 15:25> Vital signs: Vital Signs 10/07/18 00:00 10/07/18 04:00 10/07/18 08:00 Temperature 98.4 F 98.4 F 98.1 F Pulse Rate 103 H 69 59 L Respiratory Rate 16 16 18 Blood Pressure 111/58 L 128/57 L 122/67 Pulse Oximetry 98 98 97 10/07/18 12:00 10/07/18 16:00 10/07/18 20:00 Temperature 98.1 F 97.8 F 98.2 F Pulse Rate 103 H 60 83 Respiratory Rate 18 18 20 Blood Pressure 127/64 110/59 L 118/80 Pulse Oximetry 97 98 99 Intake & Output 10/07/18 10/07/18 10/08/18 06:59 18:59 06:59 Intake Total 480 / 480 960 / 960 Output Total 3000 / 3000 3000 / 3000 Balance -2520 / -2520 -2040 / -2040 Weight 79.4 kg Intake: Oral 480 / 480 960 / 960 Output: Urine 3000 / 3000 3000 / 3000 Other: Date of Last Bowel Movement 10/05/18 # Bowel Movements 2 1 - Urinary Catheter Management Indwelling Urethral Catheter Cath placed during this visit: no <Slim Arrieta - Last Filed: 10/07/18 21:32> Assessment and Plan - Assessment (1) Acute kidney injury superimposed on CKD Code(s): N17.9 - Acute kidney failure, unspecified; N18.9 - Chronic kidney disease, unspecified Status: Acute Plan: Creatinine at 1.46, potassium at 4.1 Has RTA Continue Aldactone, potassium replacement and NaHCO3. Fluids encouraged. (2) Hypertension Code(s): I10 - Essential (primary) hypertension Status: Chronic Qualifiers: Hypertension type: essential hypertension Qualified Code(s): I10 - Essential (primary) hypertension Plan: will monitor (3) Endocarditis of tricuspid valve Code(s): I36.8 - Other nonrheumatic tricuspid valve disorders Status: Acute Plan: Antibiotics completed - Plan l <Cher Freeman - Last Filed: 10/03/18 15:25> - Assessment (1) Acute kidney injury superimposed on CKD Code(s): N17.9 - Acute kidney failure, unspecified; N18.9 - Chronic kidney disease, unspecified Status: Acute Plan: Patient has slight increase in the Creatinine. Encourage oral intake. K is normal, and acidosis is stable. (2) Hypertension Code(s): I10 - Essential (primary) hypertension Status: Chronic Qualifiers: Hypertension type: essential hypertension Qualified Code(s): I10 - Essential (primary) hypertension (3) Endocarditis of tricuspid valve Code(s): I36.8 - Other nonrheumatic tricuspid valve disorders Status: Acute <Slim Arrieta - Last Filed: 10/07/18 21:32>
--- NOTE | 2018-10-03 12:00 | P.PNIM ---
Subjective Interval history: The patient was ambulating with her mother. She was worried about being discharged too soon. She wanted to know how her chest x-ray looks. She said she spoke with the kidney team. She understood that she would not be transferred to [facility]. Their questions were answered. Physical Exam Vital signs: Vital Signs 10/02/18 12:00 10/02/18 16:00 10/02/18 20:00 Temperature 98.4 F 98.4 F 98.5 F Pulse Rate 84 94 H 85 Respiratory Rate 20 18 19 Blood Pressure 110/72 121/60 105/56 L Pulse Oximetry 96 96 96 10/02/18 23:55 10/03/18 00:00 10/03/18 04:00 Temperature 98.3 F 98.2 F Pulse Rate 85 81 55 L Respiratory Rate 17 19 Blood Pressure 116/57 L 110/59 L Pulse Oximetry 95 96 97 10/03/18 08:00 Temperature 98.3 F Pulse Rate 64 Respiratory Rate 18 Blood Pressure 98/55 L Pulse Oximetry 97 Intake & Output 10/02/18 10/03/18 10/03/18 18:59 06:59 18:59 Intake Total 720 / 720 620 / 620 Output Total 1000 / 1000 1801 / 1801 Balance -280 / -280 -1181 / -1181 Weight 78.5 kg Intake: Oral 720 / 720 620 / 620 Output: Urine 1000 / 1000 1800 / 1800 Stool Other: # Voids 4 Date of Last Bowel Movement 10/01/18 10/02/18 # Bowel Movements 1 Narrative: GENERAL: No distress. SKIN: Warm and dry. NECK: Supple, trachea midline. No JVD. CARDIOVASCULAR: Regular rate and rhythm. RESPIRATORY: Breath sounds equal bilaterally. No accessory muscle use. Surgical scar with Steri-Strips intact. No surrounding erythema or induration. GASTROINTESTINAL: Abdomen soft, non-tender, nondistended. MUSCULOSKELETAL: No cyanosis, or edema. BACK: Nontender without obvious deformity. No CVA tenderness. - Urinary Catheter Management Indwelling Urethral Catheter Cath placed during this visit: yes, but has since been removed by the nurse Reason for continuing: Decision to DC catheter Removal date: 08/07/18 Removal time: 18:00 Results - Labs CBC & Chem 7: 10/03/18 06:00 10/03/18 06:00 Laboratory Results - last 24 hr 10/02/18 10/02/18 10/03/18 16:24 16:24 06:00 WBC 10.3 RBC 3.08 L Hgb 9.6 L Hct 28.0 L MCV 90.9 MCH 31.1 MCHC 34.2 RDW 15.3 Plt Count 138 L MPV 7.8 Sodium 138 Potassium 4.7 Chloride 107 Carbon Dioxide 27.0 Anion Gap 4 L BUN 26 H Creatinine 1.64 H Estimated GFR 35 L Random Glucose 163 H Calcium 8.5 Phosphorus Cancelled 3.6 Magnesium Cancelled 2.1 10/03/18 06:00 WBC RBC Hgb Hct MCV MCH MCHC RDW Plt Count MPV Sodium 137 Potassium 4.1 Chloride 106 Carbon Dioxide 26.0 Anion Gap 5 BUN 29 H Creatinine 1.46 H Estimated GFR 39 L Random Glucose 94 Calcium 8.3 L Phosphorus 3.8 Magnesium 2.2 - Imaging Impressions Chest X-Ray 10/02/18 14:14 CONCLUSION: There is a PICC present. The line does make a loop in the subclavian vein. The catheter tip is in the SVC. The lungs are clear. - Procedures None Assessment and Plan - Assessment (1) Endocarditis of tricuspid valve Code(s): I36.8 - Other nonrheumatic tricuspid valve disorders Status: Acute (2) Brugada syndrome Code(s): I49.8 - Other specified cardiac arrhythmias Status: Resolved (3) Hypertension Code(s): I10 - Essential (primary) hypertension Status: Chronic (4) ICD (implantable cardioverter-defibrillator) malfunction Code(s): T82.118A - Breakdown (mechanical) of other cardiac electronic device, initial encounter Status: Acute (5) Medical non-compliance Code(s): Z91.19 - Patient's noncompliance with other medical treatment and regimen Status: Acute (6) SLE (systemic lupus erythematosus) Code(s): M32.9 - Systemic lupus erythematosus, unspecified Status: Chronic (7) Chronic pain Code(s): G89.29 - Other chronic pain Status: Chronic (8) Acute kidney injury superimposed on CKD Code(s): N17.9 - Acute kidney failure, unspecified; N18.9 - Chronic kidney disease, unspecified Status: Acute - Plan History of chronic pain syndrome Possible seizures -Continue with morphine slow release 30 mg at night and 15 mg during the day. -Tylenol PRN for additional moderate pain (allergic to Toradol); initially had mild transaminitis which resolved. Oxycodone for breakthrough. -As needed Valium 10 mg p.o. every 8 hours- 5 mg po q8 prn AICD malfunction/probable dislodged pacemaker lead, status post lead extraction and placement of new leads 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 2D echo showed tricuspid valve endocarditis, now s/p antibiotic treatment CVVH started 08/03 due to severe acidosis, now transition to HD Prior ICD pocket infection in December 2017 and February 2018. Recently replaced by Dr. Cervantes. Per device rep she did not follow-up device check -Management per assistant designer -Completed course of vancomycin, aztreonam per ID on 09/17/18 PM wires dislodged- 08/25 - PM interrogated -per TJ - [employer] rep- wires are all dislodged- occasionally capturing. S/p pacemaker revision 08/29. Cardiology consulted- Dr. Edinson Andrade. Due to multiple lead dislodgment, cardiology pursuing possible transfer to tertiary care center. She was denied. Patient reports that LifeVest did not work in the past, and that she is unable to follow-up with [facility] as an outpatient. Tricuspid valve endocarditis History of ICD pocket infection most recently with MRSA February 2018. She has undergone device removal on 2 prior occasions. Most recently was removed in February 2018 with wound VAC placement. Device replaced 06/27/18. 2D echo showed tricuspid valve endocarditis while bld cx's are neg -Completed Abx 09/17/18 Yeast vaginitis-resolved - s/p Diflucan dose; likely 2/2 immunosupression 2/2 steroids Crohn's disease -follow-up with [facility] gastroenterology in the end of August -continue PO steroids Menorrhagia, patient reports is a chronic problem. Hasn't followed up with gynecology in over a year. Endometriosis Galactorrhea -h/h stable, f/u outpt w/ maintenance service technician -will need galactorrhea worked up after above status stabilizes. Chronic kidney disease stage III -Nephrology following; Currently patient has a right femoral Vas-Cath. -Continue Aldactone, potassium replacement and sodium bicarb Systemic lupus erythematosus On chronic steroids -Tapered down from stress dose steroids to chronic baseline dosing Chronic anemia/Thrombocytopenia -H&H currently stable, continue to monitor. PROPH: SCDs for DVT prophylaxis and heparin 5000 units subcu every 8 Protonix 40 mg daily for stress ulcer prophylaxis. Discharge Planning: At this point awaiting [facility] to evaluate for transfer to other specialty care facility per electrophysiology recommendations. [facility] currently evaluating clinical case, appreciate assistance of CM and electrophysiology team for this complicated disposition. (3) Hypertension Qualifiers: Hypertension type: essential hypertension Qualified Code(s): I10 - Essential (primary) hypertension (6) SLE (systemic lupus erythematosus) Qualifiers: Systemic lupus erythematosus type: unspecified (7) Chronic pain Qualifiers: Chronic pain type: other chronic pain Qualified Code(s): G89.29 - Other chronic pain
[2018-10-03] MEDS: LORazepam 1 MG Tablet PO SCH (20:54)
[2018-10-03] MEDS: Melatonin 5 MG Tablet PO SCH (20:54)
[2018-10-04] MEDS: Levothyroxine 112 MCG Tablet PO SCH (05:27)
[2018-10-04] MEDS: Heparin - SQ 10,000 UNITS/ML Vial SQ SCH ×3 (05:35→22:04)
[2018-10-04 06:18] LABS: Calcium 8.5 mg/dL (8.5-10.1); Carbon Dioxide 27.1 meq/L (21.0-32.0); Potassium 4.1 meq/L (3.5-5.1)
[2018-10-04] MEDS: predniSONE 20 MG Tablet PO SCH (08:50)
[2018-10-04] MEDS: Spironolactone 25 MG Tablet PO SCH ×2 (08:50→17:57)
[2018-10-04] MEDS: Morphine Sulfate 15 MG SR Tablet PO SCH ×2 (08:50→20:20)
[2018-10-04] MEDS: Sodium Bicarbonate 650 MG Tablet PO SCH ×3 (08:51→17:57)
[2018-10-04] MEDS: amLODIPine 5 MG Tablet PO SCH (08:51)
[2018-10-04] MEDS: Senna/Docusate Sodium 8.6/50 MG Tablet PO SCH ×2 (08:51→20:21)
[2018-10-04] MEDS: Heparin Central Flush 100 UNIT/ML 5 ML Vial IV.FLUSH SCH (08:52)
--- NOTE | 2018-10-04 09:49 | P.PNNP ---
Subjective Interval history: Denies any shortness of breath, nausea, or vomiting. Some chest discomfort. Creatinine is stable and improving. <Cher Freeman - Last Filed: 10/04/18 11:42> Physical Exam Vital signs: Vital Signs 10/03/18 12:00 10/03/18 16:00 10/03/18 19:36 Temperature 98 F 98.4 F 98.5 F Pulse Rate 103 H 55 L 85 Respiratory Rate 20 18 20 Blood Pressure 138/76 104/55 L 112/58 L Pulse Oximetry 98 97 96 10/03/18 20:00 10/04/18 00:00 10/04/18 04:00 Temperature 97.9 F 97.8 F Pulse Rate 84 62 63 Respiratory Rate 16 16 Blood Pressure 105/58 L 113/56 L Pulse Oximetry 98 99 10/04/18 08:00 Temperature 97.9 F Pulse Rate 77 Respiratory Rate 18 Blood Pressure 101/72 Pulse Oximetry 100 Intake & Output 10/03/18 10/04/18 10/04/18 18:59 06:59 18:59 Intake Total 960 / 960 480 / 480 Output Total 1200 / 1200 2501 / 2501 Balance -240 / -240 -2020 / -2020 Weight 78.2 kg Intake: Oral 960 / 960 480 / 480 Output: Urine 1200 / 1200 2500 / 2500 Urine/Stool Mix Other: Date of Last Bowel Movement 10/01/18 10/04/18 # Bowel Movements 2 Narrative: GENERAL: No distress. Alert and oriented. SKIN: Warm and dry. NECK: Supple, trachea midline. No JVD. CARDIOVASCULAR: Regular rate and rhythm. RESPIRATORY: Breath sounds equal bilaterally. No accessory muscle use. Surgical scar with Steri-Strips intact. No surrounding erythema or induration. GASTROINTESTINAL: Abdomen soft, non-tender, nondistended. MUSCULOSKELETAL: No cyanosis, or edema. BACK: Nontender without obvious deformity. No CVA tenderness. - Urinary Catheter Management Indwelling Urethral Catheter Cath placed during this visit: yes, but has since been removed by the nurse Reason for continuing: Decision to DC catheter Removal date: 08/07/18 Removal time: 18:00 <Cher Freeman - Last Filed: 10/04/18 11:42> Vital signs: Vital Signs 10/07/18 00:00 10/07/18 04:00 10/07/18 08:00 Temperature 98.4 F 98.4 F 98.1 F Pulse Rate 103 H 69 59 L Respiratory Rate 16 18 Blood Pressure 111/58 L 128/57 L 122/67 Pulse Oximetry 98 98 97 10/07/18 12:00 10/07/18 16:00 10/07/18 20:00 Temperature 98.1 F 97.8 F 98.2 F Pulse Rate 103 H 60 83 Respiratory Rate 18 18 20 Blood Pressure 127/64 110/59 L 118/80 Pulse Oximetry 97 98 99 Intake & Output 10/07/18 10/07/18 10/08/18 06:59 18:59 06:59 Intake Total 480 / 480 960 / 960 Output Total 3000 / 3000 3000 / 3000 Balance -2520 / -2520 -0 / -2039 Weight 79.4 kg Intake: Oral 480 / 480 960 / 960 Output: Urine 3000 / 3000 3000 / 3000 Other: Date of Last Bowel Movement 10/05/18 # Bowel Movements 2 1 - Urinary Catheter Management Indwelling Urethral Catheter Cath placed during this visit: no <Slim Arrieta - Last Filed: 10/07/18 22:01> Assessment and Plan - Assessment (1) Acute kidney injury superimposed on CKD Code(s): N17.9 - Acute kidney failure, unspecified; N18.9 - Chronic kidney disease, unspecified Status: Acute Plan: SHABANA with RTA Creatinine stable and improved at 1.34. Continue Aldactone, potassium replacement and NaHCO3. Fluids encouraged. (2) Hypertension Code(s): I10 - Essential (primary) hypertension Status: Chronic Qualifiers: Hypertension type: essential hypertension Qualified Code(s): I10 - Essential (primary) hypertension Plan: will monitor (3) Endocarditis of tricuspid valve Code(s): I36.8 - Other nonrheumatic tricuspid valve disorders Status: Acute Plan: Antibiotics completed <Cher Freeman - Last Filed: 10/04/18 11:42> - Assessment (1) Acute kidney injury superimposed on CKD Code(s): N17.9 - Acute kidney failure, unspecified; N18.9 - Chronic kidney disease, unspecified Status: Acute Plan: Patient seen and examined, agree with above. Creatinine is slightly better, K is normal. Continue K , Aldactone and NaHco3. (2) Hypertension Code(s): I10 - Essential (primary) hypertension Status: Chronic Qualifiers: Hypertension type: essential hypertension Qualified Code(s): I10 - Essential (primary) hypertension (3) Endocarditis of tricuspid valve Code(s): I36.8 - Other nonrheumatic tricuspid valve disorders Status: Acute <Slim Arrieta - Last Filed: 10/07/18 22:01>
[2018-10-04] MEDS: Lisinopril 5 MG Tablet PO SCH (09:52)
--- NOTE | 2018-10-04 11:25 | P.PNIM ---
Subjective Interval history: The patient has been ambulating. She says she has been experiencing some pain in her chest at times after moving around so much. Otherwise she had no acute complaints. Discussed with nursing. Physical Exam Vital signs: Vital Signs 10/03/18 12:00 10/03/18 16:00 10/03/18 19:36 Temperature 98 F 98.4 F 98.5 F Pulse Rate 103 H 55 L 85 Respiratory Rate 20 18 20 Blood Pressure 138/76 104/55 L 112/58 L Pulse Oximetry 98 97 96 10/03/18 20:00 10/04/18 00:00 10/04/18 04:00 Temperature 97.9 F 97.8 F Pulse Rate 84 62 63 Respiratory Rate 16 16 Blood Pressure 105/58 L 113/56 L Pulse Oximetry 98 99 10/04/18 08:00 Temperature 97.9 F Pulse Rate 53 L Respiratory Rate 18 Blood Pressure 101/72 Pulse Oximetry 100 Intake & Output 10/03/18 10/04/18 10/04/18 18:59 06:59 18:59 Intake Total 960 / 960 480 / 480 Output Total 1200 / 1200 2501 / 2501 Balance -240 / -240 -2020 / -2020 Weight 78.2 kg Intake: Oral 960 / 960 480 / 480 Output: Urine 1200 / 1200 2500 / 2500 Urine/Stool Mix Other: Date of Last Bowel Movement 10/01/18 10/04/18 10/01/18 # Bowel Movements 2 Narrative: GENERAL: No distress. Alert and oriented. SKIN: Warm and dry. NECK: Supple, trachea midline. No JVD. CARDIOVASCULAR: Regular rate and rhythm. RESPIRATORY: Breath sounds equal bilaterally. No accessory muscle use. Surgical scar with Steri-Strips intact. No surrounding erythema or induration. GASTROINTESTINAL: Abdomen soft, non-tender, nondistended. MUSCULOSKELETAL: No cyanosis, or edema. BACK: Nontender without obvious deformity. No CVA tenderness. - Urinary Catheter Management Indwelling Urethral Catheter Cath placed during this visit: yes, but has since been removed by the nurse Reason for continuing: Decision to DC catheter Removal date: 08/07/18 Removal time: 18:00 Results - Labs CBC & Chem 7: 10/03/18 06:00 10/04/18 05:30 Laboratory Results - last 24 hr 10/04/18 05:30 Sodium 141 Potassium 4.1 Chloride 108 H Carbon Dioxide 27.1 Anion Gap 6 BUN 25 H Creatinine 1.34 H Estimated GFR 44 L Random Glucose 84 Calcium 8.5 - Procedures None Assessment and Plan - Assessment (1) Endocarditis of tricuspid valve Code(s): I36.8 - Other nonrheumatic tricuspid valve disorders Status: Acute (2) Brugada syndrome Code(s): I49.8 - Other specified cardiac arrhythmias Status: Resolved (3) Hypertension Code(s): I10 - Essential (primary) hypertension Status: Chronic (4) ICD (implantable cardioverter-defibrillator) malfunction Code(s): T82.118A - Breakdown (mechanical) of other cardiac electronic device, initial encounter Status: Acute (5) Medical non-compliance Code(s): Z91.19 - Patient's noncompliance with other medical treatment and regimen Status: Acute (6) SLE (systemic lupus erythematosus) Code(s): M32.9 - Systemic lupus erythematosus, unspecified Status: Chronic (7) Chronic pain Code(s): G89.29 - Other chronic pain Status: Chronic (8) Acute kidney injury superimposed on CKD Code(s): N17.9 - Acute kidney failure, unspecified; N18.9 - Chronic kidney disease, unspecified Status: Acute - Plan History of chronic pain syndrome Possible seizures -Continue with morphine slow release 30 mg at night and 15 mg during the day. -Tylenol PRN for additional moderate pain (allergic to Toradol); initially had mild transaminitis which resolved. Oxycodone for breakthrough. -As needed Valium 5 mg po q8h. AICD malfunction/probable dislodged pacemaker lead, status post lead extraction and placement of new leads 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 2D echo showed tricuspid valve endocarditis, now s/p antibiotic treatment CVVH started 08/03 due to severe acidosis, now transition to HD Prior ICD pocket infection in December 2017 and February 2018. Recently replaced by Dr. Cervantes. Per device rep she did not follow-up device check -Management per culinary specialist -Completed course of vancomycin, aztreonam per ID on 09/17/18 PM wires dislodged- 08/25 - PM interrogated -per TJ - [employer] rep- wires are all dislodged- occasionally capturing. S/p pacemaker revision 08/29. Cardiology consulted- Dr. Edinson Andrade. Due to multiple lead dislodgment, cardiology pursuing possible transfer to tertiary care center. She was denied. Patient reports that LifeVest did not work in the past, and that she is unable to follow-up with [facility] as an outpatient. Tricuspid valve endocarditis History of ICD pocket infection most recently with MRSA February 2018. She has undergone device removal on 2 prior occasions. Most recently was removed in February 2018 with wound VAC placement. Device replaced 06/27/18. 2D echo showed tricuspid valve endocarditis while bld cx's are neg -Completed Abx 09/17/18. Yeast vaginitis S/p Diflucan dose; likely 2/2 immunosupression 2/2 steroids. -resolved. Crohn's disease -follow-up with [facility] gastroenterology in the end of August -continue PO steroids Menorrhagia, patient reports is a chronic problem. Hasn't followed up with gynecology in over a year. 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 Likely will need US. Chronic kidney disease stage III -Nephrology following; Currently patient has a right femoral Vas-Cath. -Continue Aldactone, potassium replacement and sodium bicarb Systemic lupus erythematosus On chronic steroids -Tapered down from stress dose steroids to chronic baseline dosing Chronic anemia/Thrombocytopenia -H&H currently stable, continue to monitor. PROPH: SCDs for DVT prophylaxis and heparin 5000 units subcu every 8 Protonix 40 mg daily for stress ulcer prophylaxis. Discharge Planning: At this point awaiting [facility] to evaluate for transfer to other specialty care facility per electrophysiology recommendations. [facility] currently evaluating clinical case, appreciate assistance of CM and electrophysiology team for this complicated disposition. (3) Hypertension Qualifiers: Hypertension type: essential hypertension Qualified Code(s): I10 - Essential (primary) hypertension (6) SLE (systemic lupus erythematosus) Qualifiers: Systemic lupus erythematosus type: unspecified (7) Chronic pain Qualifiers: Chronic pain type: other chronic pain Qualified Code(s): G89.29 - Other chronic pain
[2018-10-04] MEDS: Melatonin 5 MG Tablet PO SCH (20:19)
[2018-10-04] MEDS: LORazepam 1 MG Tablet PO SCH (20:19)
[2018-10-05] MEDS: Levothyroxine 112 MCG Tablet PO SCH (06:22)
[2018-10-05] MEDS: Heparin - SQ 10,000 UNITS/ML Vial SQ SCH ×3 (06:22→21:44)
[2018-10-05] MEDS: Spironolactone 25 MG Tablet PO SCH ×2 (08:18→18:05)
[2018-10-05] MEDS: Sodium Bicarbonate 650 MG Tablet PO SCH ×3 (08:18→18:05)
[2018-10-05] MEDS: predniSONE 20 MG Tablet PO SCH (08:19)
[2018-10-05] MEDS: Lisinopril 5 MG Tablet PO SCH (08:19)
[2018-10-05] MEDS: amLODIPine 5 MG Tablet PO SCH (08:19)
[2018-10-05] MEDS: Morphine Sulfate 15 MG SR Tablet PO SCH ×2 (08:19→21:45)
[2018-10-05] MEDS: Heparin Central Flush 100 UNIT/ML 5 ML Vial IV.FLUSH SCH (08:23)
[2018-10-05] MEDS: Senna/Docusate Sodium 8.6/50 MG Tablet PO SCH ×2 (08:25→21:44)
--- NOTE | 2018-10-05 15:48 | P.PNIM ---
Subjective Interval history: The patient was resting comfortably in bed. She said she was told there was going to be a meeting early next week. She wanted to know if the pacemaker and the AICD were going to be removed. She said she has had problems with the LifeVest in the past. Discussed with nursing and case management. Physical Exam Vital signs: Vital Signs 10/04/18 16:00 10/04/18 20:00 10/05/18 00:00 Temperature 98.6 F 98.7 F 98.4 F Pulse Rate 70 84 82 Respiratory Rate 18 17 14 Blood Pressure 99/76 L 111/82 108/84 Pulse Oximetry 99 98 96 10/05/18 04:00 10/05/18 08:00 10/05/18 12:00 Temperature 97.8 F 98.2 F 98.9 F Pulse Rate 53 L 58 L 76 Respiratory Rate 14 20 20 Blood Pressure 93/55 L 92/51 L 113/68 Pulse Oximetry 98 98 98 Intake & Output 10/04/18 10/05/18 10/05/18 18:59 06:59 18:59 Intake Total 480 / 480 480 / 480 Output Total 1200 / 1200 Balance -720 / -720 480 / 480 Weight 78.2 kg Intake: Oral 480 / 480 480 / 480 Output: Urine 1200 / 1200 Other: # Voids 3 Date of Last Bowel Movement 10/01/18 10/04/18 10/01/18 # Bowel Movements 0 Narrative: GENERAL: No distress. Alert and oriented. SKIN: Warm and dry. NECK: Supple, trachea midline. No JVD. CARDIOVASCULAR: Regular rate and rhythm. RESPIRATORY: Breath sounds equal bilaterally. No accessory muscle use. Surgical scar with Steri-Strips intact. No surrounding erythema or induration. GASTROINTESTINAL: Abdomen soft, non-tender, nondistended. MUSCULOSKELETAL: No cyanosis, or edema. BACK: Nontender without obvious deformity. No CVA tenderness. - Urinary Catheter Management Indwelling Urethral Catheter Cath placed during this visit: yes, but has since been removed by the nurse Reason for continuing: Decision to DC catheter Removal date: 08/07/18 Removal time: 18:00 Results - Labs CBC & Chem 7: 10/03/18 06:00 10/04/18 05:30 - Procedures None Assessment and Plan - Assessment (1) Endocarditis of tricuspid valve Code(s): I36.8 - Other nonrheumatic tricuspid valve disorders Status: Acute (2) Brugada syndrome Code(s): I49.8 - Other specified cardiac arrhythmias Status: Resolved (3) Hypertension Code(s): I10 - Essential (primary) hypertension Status: Chronic (4) ICD (implantable cardioverter-defibrillator) malfunction Code(s): T82.118A - Breakdown (mechanical) of other cardiac electronic device, initial encounter Status: Acute (5) Medical non-compliance Code(s): Z91.19 - Patient's noncompliance with other medical treatment and regimen Status: Acute (6) SLE (systemic lupus erythematosus) Code(s): M32.9 - Systemic lupus erythematosus, unspecified Status: Chronic (7) Chronic pain Code(s): G89.29 - Other chronic pain Status: Chronic (8) Acute kidney injury superimposed on CKD Code(s): N17.9 - Acute kidney failure, unspecified; N18.9 - Chronic kidney disease, unspecified Status: Acute - Plan History of chronic pain syndrome Possible seizures -Continue with morphine slow release 30 mg at night and 15 mg during the day. -Tylenol PRN for additional moderate pain (allergic to Toradol); initially had mild transaminitis which resolved. Oxycodone for breakthrough. -As needed Valium 5 mg po q8h. AICD malfunction/probable dislodged pacemaker lead, status post lead extraction and placement of new leads 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 2D echo showed tricuspid valve endocarditis, now s/p antibiotic treatment CVVH started 08/03 due to severe acidosis, now transition to HD Prior ICD pocket infection in December 2017 and February 2018. Recently replaced by Dr. Cervantes. Per device rep she did not follow-up device check. Completed course of vancomycin, aztreonam per ID on 09/17/18 PM wires dislodged- 08/25 - PM interrogated -per TJ - [employer] rep- wires are all dislodged- occasionally capturing. S/p pacemaker revision 08/29. Cardiology consulted- Dr. Edinson Andrade. Due to multiple lead dislodgment, cardiology pursuing possible transfer to tertiary care center. She was denied. Patient reports that LifeVest did not work in the past, and that she is unable to follow-up with [facility] as an outpatient. -follow up with EP for further management. Tricuspid valve endocarditis History of ICD pocket infection most recently with MRSA February 2018. She has undergone device removal on 2 prior occasions. Most recently was removed in February 2018 with wound VAC placement. Device replaced 06/27/18. 2D echo showed tricuspid valve endocarditis while bld cx's are neg -Completed Abx 09/17/18. -wound culture requested 10/05 as pt complained of pus leaking from incision site. Yeast vaginitis S/p Diflucan dose; likely 2/2 immunosupression 2/2 steroids. -resolved. Crohn's disease -follow-up with [facility] gastroenterology in the end of August -continue PO steroids Menorrhagia, patient reports is a chronic problem. Hasn't followed up with gynecology in over a year. 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 Chronic kidney disease stage III -Nephrology following; Currently patient has a right femoral Vas-Cath. -Continue Aldactone, potassium replacement and sodium bicarb Systemic lupus erythematosus On chronic steroids -Tapered down from stress dose steroids to chronic baseline dosing Chronic anemia/Thrombocytopenia -H&H currently stable, continue to monitor. PROPH: SCDs for DVT prophylaxis and heparin 5000 units subcu every 8 Protonix 40 mg daily for stress ulcer prophylaxis. Discharge Planning: May need to have her AICD removed and LifeVest placed prior to discharge home. (3) Hypertension Qualifiers: Hypertension type: essential hypertension Qualified Code(s): I10 - Essential (primary) hypertension (6) SLE (systemic lupus erythematosus) Qualifiers: Systemic lupus erythematosus type: unspecified (7) Chronic pain Qualifiers: Chronic pain type: other chronic pain Qualified Code(s): G89.29 - Other chronic pain
[2018-10-05] MEDS: LORazepam 1 MG Tablet PO SCH (21:40)
[2018-10-05] MEDS: Melatonin 5 MG Tablet PO SCH (21:40)
[2018-10-06] MEDS: Heparin - SQ 10,000 UNITS/ML Vial SQ SCH ×3 (06:29→21:03)
[2018-10-06] MEDS: Levothyroxine 112 MCG Tablet PO SCH (06:40)
[2018-10-06] MEDS: amLODIPine 5 MG Tablet PO SCH (08:25)
[2018-10-06] MEDS: Sodium Bicarbonate 650 MG Tablet PO SCH ×3 (08:25→17:02)
[2018-10-06] MEDS: predniSONE 20 MG Tablet PO SCH (08:26)
[2018-10-06] MEDS: Spironolactone 25 MG Tablet PO SCH ×2 (08:26→17:02)
[2018-10-06] MEDS: Morphine Sulfate 15 MG SR Tablet PO SCH ×2 (08:26→20:59)
[2018-10-06] MEDS: Lisinopril 5 MG Tablet PO SCH (08:26)
[2018-10-06] MEDS: Heparin Central Flush 100 UNIT/ML 5 ML Vial IV.FLUSH SCH (08:27)
[2018-10-06] MEDS: Senna/Docusate Sodium 8.6/50 MG Tablet PO SCH ×2 (08:28→21:00)
--- NOTE | 2018-10-06 15:40 | P.PN ---
Subjective Interval history: Follow-up for Brugada syndrome, AICD complications, tricuspid endocarditis, chronic pain syndrome. Patient is currently resting in bed. Denies any chest pain or shortness of breath or fever or chills. Physical Exam Vital signs: Vital Signs 10/05/18 16:00 10/05/18 20:00 10/06/18 00:00 Temperature 98.7 F 97.4 F L 100.0 F H Pulse Rate 62 116 H 60 Respiratory Rate 20 14 18 Blood Pressure 113/65 130/60 134/68 Pulse Oximetry 98 99 95 10/06/18 04:00 10/06/18 08:00 10/06/18 12:00 Temperature 98.6 F 98.9 F 98.5 F Pulse Rate 83 53 L 106 H Respiratory Rate 14 19 18 Blood Pressure 109/65 102/63 114/62 Pulse Oximetry 98 99 95 Intake & Output 10/05/18 10/06/18 10/06/18 18:59 06:59 18:59 Intake Total 560 / 560 240 / 240 Output Total 1999 Balance -1440 / -1440 240 / 240 Weight 78.9 kg Intake: Oral 560 / 560 240 / 240 Output: Urine 1999 Other: # Voids 2 Date of Last Bowel Movement 10/01/18 10/05/18 # Bowel Movements 1 1 Narrative: GENERAL: No distress. Alert and oriented. SKIN: Warm and dry. NECK: Supple, trachea midline. No JVD. CARDIOVASCULAR: Regular rate and rhythm. RESPIRATORY: Breath sounds equal bilaterally. No accessory muscle use. Surgical scar with Steri-Strips intact. No surrounding erythema or induration. GASTROINTESTINAL: Abdomen soft, non-tender, nondistended. MUSCULOSKELETAL: No cyanosis, or edema. BACK: Nontender without obvious deformity. No CVA tenderness. - Urinary Catheter Management Indwelling Urethral Catheter Cath placed during this visit: yes, but has since been removed by the nurse Reason for continuing: Decision to DC catheter Removal date: 08/07/18 Removal time: 18:00 Results - Labs CBC & Chem 7: 10/03/18 06:00 10/04/18 05:30 Microbiology 10/06/18 04:20 Wound - Chest Gram Stain - Final - Imaging Chest X-Ray 08/02/18 23:22 CONCLUSION: No acute cardiopulmonary disease demonstrated. Chest X-Ray 08/03/18 00:00 CONCLUSION: Endotracheal tube in good position. Right IJ line in right atrium. Basilar and dependent airspace disease in the lungs. Chest X-Ray 08/03/18 09:45 CONCLUSION: 1. Right IJ central line tip in the right atrium without pneumothorax. Chest X-Ray 08/03/18 13:53 CONCLUSION: 1. ETT 1 cm above the farhana. Right IJ central line in the right atrium. 2. Mild left lung base airspace disease, likely atelectasis. Chest X-Ray 08/04/18 07:04 CONCLUSION: Bibasilar pleural-parenchymal opacity likely representing small pleural effusions with associated atelectasis and/or airspace consolidation. The opacity at the left lung base has increased since yesterday's study. Chest X-Ray 08/05/18 06:00 CONCLUSION: Increased density at the bases bilaterally likely related to a combination of atelectasis, consolidation and possible effusions. Chest X-Ray 08/06/18 06:00 CONCLUSION: 1. Patient has been extubated with right IJ central line removed. 2. Otherwise, no significant interval change with continued bilateral lower lung zone airspace disease and likely small pleural effusions. Chest X-Ray 08/08/18 06:00 CONCLUSION: 1. No significant interval change. 2. Stable bilateral lower lung zone airspace disease and likely trace pleural effusion. Central Venous Line 08/17/18 15:16 CONCLUSION: 1. Uncomplicated midline placement. PICC Line Insertion 08/22/18 10:03 CONCLUSION: 1. Uncomplicated central venous Power PICC line placement. 2. The PICC line can be used immediately. Chest X-Ray 08/25/18 00:00 CONCLUSION: No acute cardiopulmonary disease. Chest X-Ray 08/29/18 00:00 CONCLUSION: No acute cardiopulmonary process. Chest X-Ray 10/02/18 14:14 CONCLUSION: There is a PICC present. The line does make a loop in the subclavian vein. The catheter tip is in the SVC. The lungs are clear. - Procedures None Assessment and Plan - Assessment (1) Endocarditis of tricuspid valve Code(s): I36.8 - Other nonrheumatic tricuspid valve disorders Status: Acute (2) Brugada syndrome Code(s): I49.8 - Other specified cardiac arrhythmias Status: Resolved (3) Hypertension Code(s): I10 - Essential (primary) hypertension Status: Chronic (4) ICD (implantable cardioverter-defibrillator) malfunction Code(s): T82.118A - Breakdown (mechanical) of other cardiac electronic device, initial encounter Status: Acute (5) Medical non-compliance Code(s): Z91.19 - Patient's noncompliance with other medical treatment and regimen Status: Acute (6) SLE (systemic lupus erythematosus) Code(s): M32.9 - Systemic lupus erythematosus, unspecified Status: Chronic (7) Chronic pain Code(s): G89.29 - Other chronic pain Status: Chronic (8) Acute kidney injury superimposed on CKD Code(s): N17.9 - Acute kidney failure, unspecified; N18.9 - Chronic kidney disease, unspecified Status: Acute - Plan Ms. Hernandez is a 42-year-old female with a history of Brugada syndrome status post AICD placement who presented to the emergency department on 08/02/2018 due to generalized weakness. Patient was found to have bradycardia with heart rate in the 30s and 40s. Patient has a history of chronic kidney disease, gastroparesis, hypothyroidism, lupus. She also has a history of Crohn's disease. History of chronic pain syndrome Possible seizures -Continue with morphine slow release 30 mg at night and 15 mg during the day. -Tylenol PRN for additional moderate pain (allergic to Toradol) -Oxycodone for breakthrough. -As needed Valium 5 mg po q8h. AICD malfunction/probable dislodged pacemaker lead Infective endocarditis involving tricuspid valve Brugada syndrome s/p AICD -status post lead extraction and placement of new leads -Temporary pacer followed by pacemaker lead extraction and new lead placements by . -2D echo showed tricuspid valve endocarditis, now s/p antibiotic treatment Prior ICD pocket infection in December 2017 and February 2018. Recently replaced by Dr. Cervantes. Per device rep she did not follow-up device check. Completed course of vancomycin, aztreonam per ID on 09/17/18 -There is strong suspicion that patient has been manipulating device leads. -Difficult to find other facilities to accept her due to multiple dislodgement of device leads Tricuspid valve endocarditis History of ICD pocket infection most recently with MRSA February 2018. She has undergone device removal on 2 prior occasions. Most recently was removed in February 2018 with wound VAC placement. Device replaced 06/27/18. 2D echo showed tricuspid valve endocarditis while bld cx's are neg -Completed Abx 09/17/18. -wound culture requested 10/05 as pt complained of pus leaking from incision site. Crohn's disease -follow-up with [facility] gastroenterology in the end of August -continue PO steroids Chronic kidney disease stage III -Nephrology following; Currently patient has a right femoral Vas-Cath. -Continue Aldactone, potassium replacement and sodium bicarb Systemic lupus erythematosus On chronic steroids -Tapered down from stress dose steroids to chronic baseline dosing Chronic anemia/Thrombocytopenia -H&H currently stable, continue to monitor. PROPH: SCDs for DVT prophylaxis and heparin 5000 units subcu every 8 Protonix 40 mg daily for stress ulcer prophylaxis. (3) Hypertension Qualifiers: Hypertension type: essential hypertension Qualified Code(s): I10 - Essential (primary) hypertension (6) SLE (systemic lupus erythematosus) Qualifiers: Systemic lupus erythematosus type: unspecified (7) Chronic pain Qualifiers: Chronic pain type: other chronic pain Qualified Code(s): G89.29 - Other chronic pain
[2018-10-06] MEDS: Melatonin 5 MG Tablet PO SCH (20:59)
[2018-10-06] MEDS: LORazepam 1 MG Tablet PO SCH (20:59)
[2018-10-07] MEDS: Levothyroxine 112 MCG Tablet PO SCH (06:02)
[2018-10-07] MEDS: Heparin - SQ 10,000 UNITS/ML Vial SQ SCH ×3 (06:33→22:04)
[2018-10-07] MEDS: Lisinopril 5 MG Tablet PO SCH (08:30)
[2018-10-07] MEDS: amLODIPine 5 MG Tablet PO SCH (08:31)
[2018-10-07] MEDS: predniSONE 20 MG Tablet PO SCH (08:31)
[2018-10-07] MEDS: Senna/Docusate Sodium 8.6/50 MG Tablet PO SCH ×2 (08:32→20:25)
[2018-10-07] MEDS: Morphine Sulfate 15 MG SR Tablet PO SCH ×2 (08:32→20:24)
[2018-10-07] MEDS: Sodium Bicarbonate 650 MG Tablet PO SCH ×3 (08:32→17:02)
[2018-10-07] MEDS: Heparin Central Flush 100 UNIT/ML 5 ML Vial IV.FLUSH SCH (08:34)
[2018-10-07] MEDS: Spironolactone 25 MG Tablet PO SCH ×2 (08:34→17:02)
--- NOTE | 2018-10-07 14:18 | P.PN ---
Subjective Interval history: Follow-up for Brugada syndrome, AICD complications, tricuspid endocarditis, chronic pain syndrome. Patient is currently doing well. Denies any chest pain , shortness of breath, fever or chills. She is ambulating well. Tolerating diet well. Physical Exam Vital signs: Vital Signs 10/06/18 16:00 10/06/18 19:41 10/06/18 20:00 Temperature 98.8 F 98.1 F Pulse Rate 79 63 78 Respiratory Rate 18 16 16 Blood Pressure 117/56 L 107/58 L Pulse Oximetry 97 98 10/07/18 00:00 10/07/18 04:00 10/07/18 08:00 Temperature 98.4 F 98.4 F 98.1 F Pulse Rate 103 H 69 59 L Respiratory Rate 16 16 18 Blood Pressure 111/58 L 128/57 L 122/67 Pulse Oximetry 98 98 97 10/07/18 12:00 Temperature 98.1 F Pulse Rate 103 H Respiratory Rate 18 Blood Pressure 127/64 Pulse Oximetry 97 Intake & Output 10/06/18 10/07/18 10/07/18 18:59 06:59 18:59 Intake Total 960 / 960 480 / 480 Output Total 1300 / 1300 3000 / 3000 Balance -340 / -340 -2520 / -2520 Weight 79.4 kg Intake: Oral 960 / 960 480 / 480 Output: Urine 1300 / 1300 3000 / 3000 Other: Date of Last Bowel Movement 10/05/18 # Bowel Movements 1 2 Narrative: GENERAL: No distress. Alert and oriented. SKIN: Warm and dry. Left upper chest and left lateral chest wall scar noted. NECK: Supple, trachea midline. No JVD. CARDIOVASCULAR: Regular rate and rhythm. RESPIRATORY: Breath sounds equal bilaterally. No accessory muscle use. Surgical scar with Steri-Strips intact. No surrounding erythema or induration. GASTROINTESTINAL: Abdomen soft, non-tender, nondistended. MUSCULOSKELETAL: No cyanosis, or edema. BACK: Nontender without obvious deformity. No CVA tenderness. - Urinary Catheter Management Indwelling Urethral Catheter Cath placed during this visit: yes, but has since been removed by the nurse Reason for continuing: Decision to DC catheter Removal date: 08/07/18 Removal time: 18:00 Results - Labs CBC & Chem 7: 10/03/18 06:00 10/04/18 05:30 Microbiology 10/06/18 04:20 Wound - Chest Gram Stain - Final 10/06/18 04:20 Wound - Chest Wound Culture - Preliminary S. aureus MRSA Assessment and Plan - Assessment (1) Endocarditis of tricuspid valve Code(s): I36.8 - Other nonrheumatic tricuspid valve disorders Status: Acute (2) Brugada syndrome Code(s): I49.8 - Other specified cardiac arrhythmias Status: Resolved (3) Hypertension Code(s): I10 - Essential (primary) hypertension Status: Chronic (4) ICD (implantable cardioverter-defibrillator) malfunction Code(s): T82.118A - Breakdown (mechanical) of other cardiac electronic device, initial encounter Status: Acute (5) Medical non-compliance Code(s): Z91.19 - Patient's noncompliance with other medical treatment and regimen Status: Acute (6) SLE (systemic lupus erythematosus) Code(s): M32.9 - Systemic lupus erythematosus, unspecified Status: Chronic (7) Chronic pain Code(s): G89.29 - Other chronic pain Status: Chronic (8) Acute kidney injury superimposed on CKD Code(s): N17.9 - Acute kidney failure, unspecified; N18.9 - Chronic kidney disease, unspecified Status: Acute - Plan Ms. Hernandez is a 42-year-old female with a history of Brugada syndrome status post AICD placement who presented to the emergency department on 08/02/2018 due to generalized weakness. Patient was found to have bradycardia with heart rate in the 30s and 40s. Patient has a history of chronic kidney disease, gastroparesis, hypothyroidism, lupus. She also has a history of Crohn's disease. History of chronic pain syndrome Possible seizures -Continue with morphine slow release 30 mg at night and 15 mg during the day. -Tylenol PRN for additional moderate pain (allergic to Toradol) -Oxycodone for breakthrough. -As needed Valium 5 mg po q8h. AICD malfunction/probable dislodged pacemaker lead Infective endocarditis involving tricuspid valve Brugada syndrome s/p AICD -status post lead extraction and placement of new leads -Temporary pacer followed by pacemaker lead extraction and new lead placements by . -2D echo showed tricuspid valve endocarditis, now s/p antibiotic treatment Prior ICD pocket infection in December 2017 and February 2018. Recently replaced by Dr. Cervantes. Per device rep she did not follow-up device check. Completed course of vancomycin, aztreonam per ID on 09/17/18 -There is strong suspicion that patient has been manipulating device leads. -Difficult to find other facilities to accept her due to multiple dislodgement of device leads Tricuspid valve endocarditis History of ICD pocket infection most recently with MRSA February 2018. She has undergone device removal on 2 prior occasions. Most recently was removed in February 2018 with wound VAC placement. Device replaced 06/27/18. 2D echo showed tricuspid valve endocarditis while bld cx's are neg -Completed Abx 09/17/18. -wound culture requested 10/05 as pt complained of pus leaking from incision site. Crohn's disease -follow-up with [facility] gastroenterology in the end of August -continue PO steroids Chronic kidney disease stage III -Nephrology following; Currently patient has a right femoral Vas-Cath. -Continue Aldactone, potassium replacement and sodium bicarb Systemic lupus erythematosus On chronic steroids -Tapered down from stress dose steroids to chronic baseline dosing Chronic anemia/Thrombocytopenia -H&H currently stable, continue to monitor. PROPH: SCDs for DVT prophylaxis and heparin 5000 units subcu every 8 Protonix 40 mg daily for stress ulcer prophylaxis. 10/07/2018: No changes in management. Will discuss with EP tomorrow. (3) Hypertension Qualifiers: Hypertension type: essential hypertension Qualified Code(s): I10 - Essential (primary) hypertension (6) SLE (systemic lupus erythematosus) Qualifiers: Systemic lupus erythematosus type: unspecified (7) Chronic pain Qualifiers: Chronic pain type: other chronic pain Qualified Code(s): G89.29 - Other chronic pain
[2018-10-07] MEDS: LORazepam 1 MG Tablet PO SCH (20:23)
[2018-10-07] MEDS: Melatonin 5 MG Tablet PO SCH (20:25)
[2018-10-08] MEDS: Levothyroxine 112 MCG Tablet PO SCH (05:48)
[2018-10-08] MEDS: Heparin - SQ 10,000 UNITS/ML Vial SQ SCH ×3 (05:49→21:58)
[2018-10-08] MEDS: Sodium Bicarbonate 650 MG Tablet PO SCH ×3 (08:05→17:28)
[2018-10-08] MEDS: predniSONE 20 MG Tablet PO SCH (08:06)
[2018-10-08] MEDS: Lisinopril 5 MG Tablet PO SCH (08:06)
[2018-10-08] MEDS: amLODIPine 5 MG Tablet PO SCH (08:06)
[2018-10-08] MEDS: Spironolactone 25 MG Tablet PO SCH ×2 (08:07→17:28)
[2018-10-08] MEDS: Heparin Central Flush 100 UNIT/ML 5 ML Vial IV.FLUSH SCH (08:07)
[2018-10-08] MEDS: Senna/Docusate Sodium 8.6/50 MG Tablet PO SCH ×2 (08:09→20:17)
[2018-10-08] MEDS: Morphine Sulfate 15 MG SR Tablet PO SCH ×2 (09:22→20:17)
--- NOTE | 2018-10-08 16:31 | P.PN ---
Subjective Interval history: Follow-up for Brugada syndrome, AICD complications, tricuspid endocarditis, chronic pain syndrome. Patient is resting well. Denies any fever or chills. She does complain of overall chest discomfort. She also complains of some fluid buildup in her left upper chest area. Physical Exam Vital signs: Vital Signs 10/07/18 20:00 10/08/18 00:00 10/08/18 04:00 Temperature 98.2 F 98.4 F 97.9 F Pulse Rate 64 78 59 L Respiratory Rate 20 18 18 Blood Pressure 118/80 101/52 L 115/58 L Pulse Oximetry 99 96 97 10/08/18 07:15 10/08/18 08:00 10/08/18 12:00 Temperature 98.2 F 97.9 F Pulse Rate 65 57 L 63 Respiratory Rate 18 18 Blood Pressure 132/63 103/57 L Pulse Oximetry 98 98 10/08/18 13:54 10/08/18 16:00 Temperature Pulse Rate 67 58 L Respiratory Rate 20 Blood Pressure 138/65 Pulse Oximetry Intake & Output 10/07/18 10/08/18 10/08/18 18:59 06:59 18:59 Intake Total 960 / 960 980 / 980 Output Total 3000 / 3000 3000 / 3000 Balance -2039 / -2039 -2019 / -2020 Weight 80.1 kg Intake: Oral 960 / 960 980 / 980 Output: Urine 3000 / 3000 3000 / 3000 Other: Date of Last Bowel Movement 10/07/18 # Bowel Movements 1 Narrative: GENERAL: No distress. Alert and oriented. SKIN: Warm and dry. Left upper chest and left lateral chest wall scar noted. NECK: Supple, trachea midline. No JVD. CARDIOVASCULAR: Regular rate and rhythm. RESPIRATORY: Breath sounds equal bilaterally. No accessory muscle use. Surgical scar with Steri-Strips intact. No surrounding erythema or induration. GASTROINTESTINAL: Abdomen soft, non-tender, nondistended. MUSCULOSKELETAL: No cyanosis, or edema. BACK: Nontender without obvious deformity. No CVA tenderness. - Urinary Catheter Management Indwelling Urethral Catheter Cath placed during this visit: yes, but has since been removed by the nurse Reason for continuing: Decision to DC catheter Removal date: 08/07/18 Removal time: 18:00 Results - Labs CBC & Chem 7: 10/03/18 06:00 10/04/18 05:30 Microbiology 12/01/18 04:20 Wound - Chest Gram Stain - Final 10/06/18 04:20 Wound - Chest Wound Culture - Preliminary S. aureus MRSA - Procedures None Assessment and Plan - Assessment (1) Endocarditis of tricuspid valve Code(s): I36.8 - Other nonrheumatic tricuspid valve disorders Status: Acute (2) Brugada syndrome Code(s): I49.8 - Other specified cardiac arrhythmias Status: Resolved (3) Hypertension Code(s): I10 - Essential (primary) hypertension Status: Chronic (4) ICD (implantable cardioverter-defibrillator) malfunction Code(s): T82.118A - Breakdown (mechanical) of other cardiac electronic device, initial encounter Status: Acute (5) Medical non-compliance Code(s): Z91.19 - Patient's noncompliance with other medical treatment and regimen Status: Acute (6) SLE (systemic lupus erythematosus) Code(s): M32.9 - Systemic lupus erythematosus, unspecified Status: Chronic (7) Chronic pain Code(s): G89.29 - Other chronic pain Status: Chronic (8) Acute kidney injury superimposed on CKD Code(s): N17.9 - Acute kidney failure, unspecified; N18.9 - Chronic kidney disease, unspecified Status: Acute - Plan Ms. Hernandez is a 42-year-old female with a history of Brugada syndrome status post AICD placement who presented to the emergency department on 08/02/2018 due to generalized weakness. Patient was found to have bradycardia with heart rate in the 30s and 40s. Patient has a history of chronic kidney disease, gastroparesis, hypothyroidism, lupus. She also has a history of Crohn's disease. History of chronic pain syndrome Possible seizures -Continue with morphine slow release 30 mg at night and 15 mg during the day. -Tylenol PRN for additional moderate pain (allergic to Toradol) -Oxycodone for breakthrough. -As needed Valium 5 mg po q8h. AICD malfunction/probable dislodged pacemaker lead Infective endocarditis involving tricuspid valve Brugada syndrome s/p AICD -status post lead extraction and placement of new leads -Temporary pacer followed by pacemaker lead extraction and new lead placements by . -2D echo showed tricuspid valve endocarditis, now s/p antibiotic treatment Prior ICD pocket infection in December 2017 and February 2018. Recently replaced by Dr. Cervantes. Per device rep she did not follow-up device check. Completed course of vancomycin, aztreonam per ID on 09/17/18 -There is strong suspicion that patient has been manipulating device leads. -Difficult to find other facilities to accept her due to multiple dislodgement of device leads 10/08/2018: Left chest has a small scab which was cultured on 10/06/2018 - shows MRSA growth. Patient is not any abx and has not had any systemic symptoms such as fever, chills. Tricuspid valve endocarditis History of ICD pocket infection most recently with MRSA February 2018. She has undergone device removal on 2 prior occasions. Most recently was removed in February 2018 with wound VAC placement. Device replaced 06/27/18. 2D echo showed tricuspid valve endocarditis while bld cx's are neg -Completed Abx 09/17/18. -wound culture requested 10/05 as pt complained of pus leaking from incision site. Crohn's disease -follow-up with [facility] gastroenterology in the end of August -continue PO steroids Chronic kidney disease stage III -Nephrology following; Currently patient has a right femoral Vas-Cath. -Continue Aldactone, potassium replacement and sodium bicarb Systemic lupus erythematosus On chronic steroids -Tapered down from stress dose steroids to chronic baseline dosing Chronic anemia/Thrombocytopenia -H&H currently stable, continue to monitor. PROPH: SCDs for DVT prophylaxis and heparin 5000 units subcu every 8 Protonix 40 mg daily for stress ulcer prophylaxis. 10/08/2018: Attempted to get in touch with EP Marketing Operations Analyst Dr. Cervantes - will discuss when he returns my call. Overall, I feel that given the risk of device placement, we should consider medical management of this patient Brugada syndrome. (3) Hypertension Qualifiers: Hypertension type: essential hypertension Qualified Code(s): I10 - Essential (primary) hypertension (6) SLE (systemic lupus erythematosus) Qualifiers: Systemic lupus erythematosus type: unspecified (7) Chronic pain Qualifiers: Chronic pain type: other chronic pain Qualified Code(s): G89.29 - Other chronic pain
[2018-10-08] MEDS: Melatonin 5 MG Tablet PO SCH (20:17)
[2018-10-08] MEDS: LORazepam 1 MG Tablet PO SCH (20:17)
[2018-10-09] MEDS: Heparin - SQ 10,000 UNITS/ML Vial SQ SCH ×3 (05:46→21:39)
[2018-10-09] MEDS: Levothyroxine 112 MCG Tablet PO SCH (05:46)
[2018-10-09] MEDS: Morphine Sulfate 15 MG SR Tablet PO SCH ×2 (08:38→20:50)
[2018-10-09] MEDS: Heparin Central Flush 100 UNIT/ML 5 ML Vial IV.FLUSH SCH (08:38)
[2018-10-09] MEDS: amLODIPine 5 MG Tablet PO SCH (08:38)
[2018-10-09] MEDS: Senna/Docusate Sodium 8.6/50 MG Tablet PO SCH ×2 (08:39→20:53)
[2018-10-09] MEDS: predniSONE 20 MG Tablet PO SCH (08:39)
[2018-10-09] MEDS: Spironolactone 25 MG Tablet PO SCH ×2 (08:39→17:39)
[2018-10-09] MEDS: Sodium Bicarbonate 650 MG Tablet PO SCH ×3 (08:39→17:39)
[2018-10-09] MEDS: Lisinopril 5 MG Tablet PO SCH (08:39)
--- NOTE | 2018-10-09 18:42 | P.PNIM ---
Subjective Interval history: complained of generalized pain. patient told me her medical history and reports she interfere with ICD. No acute events noted overnight. Physical Exam Vital signs: Last Vital Signs Temp 98.3 F 10/09/18 16:00 Pulse 89 10/09/18 16:00 Resp 20 10/09/18 16:00 BP 119/58 L 10/09/18 16:00 Pulse Ox 99 10/09/18 16:00 Intake & Output 10/07/18 10/08/18 10/09/18 10/10/18 06:59 06:59 06:59 06:59 Intake Total 1440 / 1440 1940 / 1940 1660 / 1660 480 / 480 Output Total 4300 / 4300 6000 / 6000 1999 / 1999 Balance -2860 / -2860 -4060 / -4060 -340 / -340 480 / 480 Weight 79.4 kg 80.1 kg 83.8 kg Narrative: GENERAL: No distress. Alert and oriented. SKIN: Warm and dry. Left upper chest and left lateral chest wall scar noted. NECK: Supple, trachea midline. No JVD. CARDIOVASCULAR: Regular rate and rhythm. RESPIRATORY: Breath sounds equal bilaterally. No accessory muscle use. Surgical scar with Steri-Strips intact. No surrounding erythema or induration. GASTROINTESTINAL: Abdomen soft, non-tender, nondistended. MUSCULOSKELETAL: No cyanosis, or edema. BACK: Nontender without obvious deformity. No CVA tenderness. Urinary Catheter Management Indwelling Urethral Catheter: Cath placed during this visit: yes, but has since been removed by the nurse Removal date: 08/07/18 Removal time: 18:00 Results Labs CBC & Chem 7: 10/03/18 06:00 10/04/18 05:30 Labs: Microbiology 10/06/18 04:20 Wound - Chest Gram Stain - Final 10/06/18 04:20 Wound - Chest Wound Culture - Final S. aureus MRSA Procedures Procedures: None Assessment and Plan Plan 42-year-old female with a history of ?Brugada syndrome status post AICD placement who presented to the emergency department on 08/02/2018 due to generalized weakness. Patient was found to have bradycardia with heart rate in the 30s and 40s. Patient has a history of chronic kidney disease, gastroparesis , hypothyroidism, lupus. She also has a history of Crohn's disease. 10/09--no new complaints. reviewed previous plans noted below. noted 's d /w Dr. Cervantes and plans for medical management of Long qt syndrome given suspected lead manipulation, apparently patient does not have Brugada syndrome. History of chronic pain syndrome Possible seizures -Continue with morphine slow release 30 mg at night and 15 mg during the day. -Tylenol PRN for additional moderate pain (allergic to Toradol) -Oxycodone for breakthrough. -As needed Valium 5 mg po q8h. AICD malfunction/probable dislodged pacemaker lead Infective endocarditis involving tricuspid valve Brugada syndrome s/p AICD -status post lead extraction and placement of new leads -Temporary pacer followed by pacemaker lead extraction and new lead placements by . -2D echo showed tricuspid valve endocarditis, now s/p antibiotic treatment Prior ICD pocket infection in December 2017 and February 2018. Recently replaced by Dr. Cervantes. Per device rep she did not follow-up device check. Completed course of vancomycin, aztreonam per ID on 09/17/18 -There is strong suspicion that patient has been manipulating device leads. -Difficult to find other facilities to accept her due to multiple dislodgement of device leads 10/08/2018: Left chest has a small scab which was cultured on 10/06/2018 - shows MRSA growth. Patient is not any abx and has not had any systemic symptoms such as fever, chills. Tricuspid valve endocarditis History of ICD pocket infection most recently with MRSA February 2018. She has undergone device removal on 2 prior occasions. Most recently was removed in February 2018 with wound VAC placement. Device replaced 06/27/18. 2D echo showed tricuspid valve endocarditis while bld cx's are neg -Completed Abx 09/17/18. -wound culture requested 10/05 as pt complained of pus leaking from incision site. Crohn's disease -follow-up with [facility] gastroenterology in the end of August -continue PO steroids Chronic kidney disease stage III -Nephrology following; Currently patient has a right femoral Vas-Cath. -Continue Aldactone, potassium replacement and sodium bicarb Systemic lupus erythematosus On chronic steroids -Tapered down from stress dose steroids to chronic baseline dosing Chronic anemia/Thrombocytopenia -H&H currently stable, continue to monitor. PROPH: SCDs for DVT prophylaxis and heparin 5000 units subcu every 8 Protonix 40 mg daily for stress ulcer prophylaxis. Progress Note: Quality VTE Deep Vein Thrombosis/Pulmonary Embolism Present on Admission: No
[2018-10-09] MEDS: LORazepam 1 MG Tablet PO SCH (20:51)
[2018-10-09] MEDS: Melatonin 5 MG Tablet PO SCH (20:52)
[2018-10-10] MEDS: Levothyroxine 112 MCG Tablet PO SCH (05:51)
[2018-10-10] MEDS: Heparin - SQ 10,000 UNITS/ML Vial SQ SCH ×3 (06:15→22:50)
[2018-10-10] MEDS: Spironolactone 25 MG Tablet PO SCH ×2 (08:59→18:51)
[2018-10-10] MEDS: Senna/Docusate Sodium 8.6/50 MG Tablet PO SCH ×2 (08:59→20:32)
[2018-10-10] MEDS: Sodium Bicarbonate 650 MG Tablet PO SCH ×3 (08:59→18:51)
[2018-10-10] MEDS: amLODIPine 5 MG Tablet PO SCH (08:59)
[2018-10-10] MEDS: Lisinopril 5 MG Tablet PO SCH (08:59)
[2018-10-10] MEDS: Morphine Sulfate 15 MG SR Tablet PO SCH ×2 (08:59→20:31)
[2018-10-10] MEDS: predniSONE 20 MG Tablet PO SCH (09:00)
[2018-10-10] MEDS: Heparin Central Flush 100 UNIT/ML 5 ML Vial IV.FLUSH SCH (09:00)
--- NOTE | 2018-10-10 17:57 | P.PNIM ---
Physical Exam Vital signs: Last Vital Signs Temp 98.4 F 10/10/18 12:00 Pulse 61 10/10/18 12:00 Resp 18 10/10/18 12:00 BP 108/55 L 10/10/18 12:00 Pulse Ox 97 10/10/18 12:00 Intake & Output 10/08/18 10/09/18 10/10/18 10/11/18 06:59 06:59 06:59 06:59 Intake Total 1940 / 1940 1660 / 1660 900 / 900 Output Total 6000 / 6000 1999 / 1999 Balance -4060 / -4060 -340 / -340 900 / 900 Weight 80.1 kg 83.8 kg 83.8 kg Narrative: GENERAL: No distress. Alert and oriented. SKIN: Warm and dry. Left upper chest and left lateral chest wall scar noted. NECK: Supple, trachea midline. No JVD. CARDIOVASCULAR: Regular rate and rhythm. CHEST: Surgical scar lt subscapular area.No surrounding erythema or induration. no drainage noted.Breath sounds equal bilaterally.No accessory muscle use. GASTROINTESTINAL: Abdomen soft, non-tender, nondistended. MUSCULOSKELETAL: No cyanosis, or edema. BACK: Nontender without obvious deformity. No CVA tenderness. Urinary Catheter Management Indwelling Urethral Catheter: Cath placed during this visit: yes, but has since been removed by the nurse Removal date: 08/07/18 Removal time: 18:00 Results Labs CBC & Chem 7: 10/03/18 06:00 10/04/18 05:30 Procedures Procedures: None Assessment and Plan Plan 42-year-old female with a history of ?Brugada syndrome status post AICD placement who presented to the emergency department on 08/02/2018 due to generalized weakness. Patient was found to have bradycardia with heart rate in the 30s and 40s. Patient has a history of chronic kidney disease, gastroparesis , hypothyroidism, lupus. She also has a history of Crohn's disease. 10/10--no new complaints. reviewed previous plans noted below. noted 's d /w Dr. Cervantes and plans for medical management of Long qt syndrome given suspected lead manipulation, apparently patient does not have Brugada syndrome. History of chronic pain syndrome Possible seizures -Continue with morphine slow release 30 mg at night and 15 mg during the day. -Tylenol PRN for additional moderate pain (allergic to Toradol) -Oxycodone for breakthrough. -As needed Valium 5 mg po q8h. AICD malfunction/probable dislodged pacemaker lead Infective endocarditis involving tricuspid valve Brugada syndrome s/p AICD -status post lead extraction and placement of new leads -Temporary pacer followed by pacemaker lead extraction and new lead placements by . -2D echo showed tricuspid valve endocarditis, now s/p antibiotic treatment Prior ICD pocket infection in December 2017 and February 2018. Recently replaced by Dr. Cervantes. Per device rep she did not follow-up device check. Completed course of vancomycin, aztreonam per ID on 09/17/18 -There is strong suspicion that patient has been manipulating device leads. -Difficult to find other facilities to accept her due to multiple dislodgement of device leads 10/08/2018: Left chest has a small scab which was cultured on 10/06/2018 - showed heavy MRSA growth. Patient is not any abx and has not had any systemic symptoms such as fever, chills. 10/10-patient says intermittent drainage from wound when she cleans,there is non at present. will start oral Doxycycline for 1 week. Tricuspid valve endocarditis History of ICD pocket infection most recently with MRSA February 2018. She has undergone device removal on 2 prior occasions. Most recently was removed in February 2018 with wound VAC placement. Device replaced 06/27/18. 2D echo showed tricuspid valve endocarditis while bld cx's are neg -Completed Abx 09/17/18. Crohn's disease -follow-up with [facility] gastroenterology in the end of August -continue PO steroids Chronic kidney disease stage III -Nephrology following; Currently patient has a right femoral Vas-Cath. -Continue Aldactone, potassium replacement and sodium bicarb Systemic lupus erythematosus On chronic steroids -Tapered down from stress dose steroids to chronic baseline dosing Chronic anemia/Thrombocytopenia -H&H currently stable, continue to monitor. PROPH: SCDs for DVT prophylaxis and heparin 5000 units subcu every 8 Protonix 40 mg daily for stress ulcer prophylaxis. Progress Note: Quality VTE Deep Vein Thrombosis/Pulmonary Embolism Present on Admission: No
[2018-10-10] MEDS: Melatonin 5 MG Tablet PO SCH (20:31)
[2018-10-10] MEDS: LORazepam 1 MG Tablet PO SCH (20:32)
--- NOTE | 2018-10-10 23:42 | MB ---
cc: Tamara Cervantes MD, Hanscy MD Chibungu, Abednego F DATE: 10/10/2018 HISTORY OF PRESENT ILLNESS: Mrs. Hernandez is a 42-year-old female with history of syncope. She had a previous defibrillator implanted due to a known QT syndrome around 2 years ago. In the last of the 2 years, she has a left subclavian defibrillator that was infected. She has an SICD that was also infected. She has a device implanted in the right subclavian that was dislodged on multiple occasions by the patient and infected again and also there was a lead repositioning in the left side of the device. Subsequently, the patient was hospitalized. She developed complete AV block. She was in the intensive care unit. Dr. 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 Subsequently, she has a lead dislodgement and the lead was twiddling all over the device. We had to reposition that lead again a total of more than 7 or 8 times. The patient since that was in the hospital for antibiotic administration. Again, recently, the patient was evaluated. At that time, there was no capture in the device and the lead was dislodged. I was consulted for evaluation and management. I discussed the case extensively with the multipolar attending physician on board of the patient. I even called Dr. Albert Garcia and discussed the case extensively with him. 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 The patient is playing with the device. There is also a sign of malingering. Because the patient was back and forth between those 2 hospitals, she spent a couple of weeks in 1 hospital and then back in another hospital. After multiple conversations, I did attempt to transfer the patient to [place], to [place], and to [place]. We were unsuccessful because the physician stated whatever that can be done in the center can be done also in [facility]. Today or decide to reevaluate the patient after thinking about the general condition. In talking again to her physician. Chest x-ray done on 10/02/2018 showed the lead completely dislodged. The tip of the RV lead is all the way to the left subclavian. On evaluation, she was alert, fully oriented. Blood pressure 108/55, pulse 75, respiratory rate 8. LUNGS: Ventilated. CARDIOVASCULAR: S1, S2. Regular. ABDOMEN: Soft. EXTREMITIES: No edema. Electrocardiogram dated on 09/17/2018 indicates sinus rhythm. No acute ST and T-wave changes. LABORATORY DATA: Hemoglobin 9.6, white blood cell 10.3, potassium 4.1, creatinine 1.34. INR is 1.2. ASSESSMENT AND RECOMMENDATIONS: Ms. 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 Also may be congenital that is accentuated by the medication. She was in right atrial pacing support. Currently, she is n.p.o. Sinus rhythm. The patient is stable. She is on antibiotics. She is managed by Internal Medicine. At this point, the best I can do is to remove the generator. I offered the patient beta mark for medical management and defibrillatory vest. If the QT corrected with beta mark. There will be no need for a device insertion. Also, there is a nice shape and previous hospitalization about AV block. When beta mark initiated, the patient may need to spend at least another 2-3 days in the hospital before being discharged home. This is a very complex situation. He is a poorly compliant patient with malingering. I understand the mother make some threat to the hospital and the past couple of weeks. I will keep her on n.p.o. after midnight. I will remove the device and further decision by the managing team. MD ALISSA Greenberg/rafael , 07:06 PM , 07:20 PM
[2018-10-11] MEDS: Heparin - SQ 10,000 UNITS/ML Vial SQ SCH ×3 (05:29→21:35)
[2018-10-11] MEDS: Levothyroxine 112 MCG Tablet PO SCH (06:50)
[2018-10-11] MEDS: Lisinopril 5 MG Tablet PO SCH (09:23)
[2018-10-11] MEDS: Spironolactone 25 MG Tablet PO SCH ×2 (09:23→17:34)
[2018-10-11] MEDS: predniSONE 20 MG Tablet PO SCH (09:23)
[2018-10-11] MEDS: Morphine Sulfate 15 MG SR Tablet PO SCH ×2 (09:24→20:35)
[2018-10-11] MEDS: amLODIPine 5 MG Tablet PO SCH (09:24)
[2018-10-11] MEDS: Heparin Central Flush 100 UNIT/ML 5 ML Vial IV.FLUSH SCH (09:25)
[2018-10-11] MEDS: Senna/Docusate Sodium 8.6/50 MG Tablet PO SCH ×2 (09:26→20:35)
[2018-10-11] MEDS: Sodium Bicarbonate 650 MG Tablet PO SCH ×3 (09:26→17:34)
[2018-10-11] MEDS ORDERED: Sodium Chlor 0.9% Inj 250 ML ONE (14:26)
--- NOTE | 2018-10-11 15:32 | CATHPROC ---
[facility] HIS Report Study Information Study Number Admission Scheduled Start Study Start [id number] Aug 03 2018 3:38AM 10/11/2018 Oct 11 2018 2:03PM [place] Service Cardiac Catheterization Admit Source Facility Department Other [facility] - Cleaning And Maintenance Worker Physician and Clinical Staff Initial Tamara Robin Stallion Manager [place], Caitlin,PACKER INSPECTOR Other Anesthesia, WOOD PATTERN MAKER Recorder Irene Ulloa,MARIA ISABEL Recorder Lissette Alaniz,MARIA ISABEL Scrub Caitlin Rodriguez,PACKER INSPECTOR Scrub Balbir Hernández,RT(R) Equipment Time Lead Mobile Developer Description Size Mfg Part Number Used/Scraped DERMABOND, ADHESIVE SKIN [id number] 14:12 CORDIS/PACER * Used GLUE MINI *[id number] 14:12 Altar BLANKET,WARM AIR CCL * Used *[id number] 14:12 Altar SUTURE, STRIP PLUS 1/2" * Used *[id number] 14:12 [email or web address] PACER HUGHES, LIMB * 2530 *[id number] Used [id number] 14:12 [employer] PACER PACK, PACER CUSTOM * Used *[id number] 15:01 Needle Sponge Count 2 2 Used 15:01 Needle Sponge Count 2 22 Used 15:01 Needle Sponge Count 20 200 Used SUTURE, 2-0 VICRYL [CT1] ([id number]) [facility] PAD, ELECTROSURGICAL 14:12 * [id number] *[id number] Used SURGICAL GROUNDING ORANGE History: Allergies Allergy Reaction *MDRO Multi-Drug Resistant Cleared - 04/21/16 Organism Compazine DYSTONIC REACTION Keflex RASH,SWELLING Neurontin SEIZURES Penicillin RASH,SWELLING Phenergan DYSTONIC REACTION Reglan DYSTONIC REACTION Seafood SWELLING IN THROAT, SOB Toradol RASH Fish Containing Products SWELLING IN THROAT, SOB prochlorperazine DYSTONIC REACTION cephalexin RASH,SWELLING gabapentin SEIZURES promethazine DYSTONIC REACTION ketorolac RASH penicillin G RASH,SWELLING Labs Hgb (g/dl) Hct (%) RBC (MIL/MM3) WBC (l/cumm) Platelets (thousands) 11.60-17.00 35.00-51.00 4.00-5.90 4.00-11.00 150.00-450.00 9.0 28 3 10 138 Glucose (mg/dl) BUN (mg/dl) Creatinine (mg/dl) BUN:Creatinine (1:x) 74.00-106.00 7.00-18.00 0.50-1.30 10.00-20.00 84 25 1.3 19.2 Na (meq/l) K (meq/l) 136.00-145.00 3.50-5.10 141 4.1 INR (PTT:PT) 0.90-1.10 1.2 Medication Medication Total Dose (Bolus/Oral) Medication Total Dosage/Unit 2% XYLOCAINE 50 mL Medications (Bolus/Oral) Medication Time Given Dosage/Unit Administered By Reason 2% XYLOCAINE 10/11/2018 3:10:32 PM 50 mL Tamara Cervantes 50 mL 2% XYLOCAINE given in lab by Tamara Cervantes in Left upper chest via Subcutaneous. Medication (Drip) Medication Time Given Dosage/Unit Concentration/Unit Diluent (ml) Solution VANCOMYCIN DRIP 10/11/2018 3:02:38 PM 1 g 1 g VANCOMYCIN DRIP given in lab by Anesthesia, WOOD PATTERN MAKER via Peripheral IV. Ordered by Tamara Cervantes. [place] son: As per physicians verbal order. Initial Case Assessment Cardiovascular HR Rhythm NIBP Chest Pain 108 sr 118/76 0 Edema Present Skin color Skin None Normal Warm Dry Circulatory - Right Pulses Radial 2 Scale (0,1,2,3,4,d) Circulatory - Left Pulses Radial 2 Scale (0,1,2,3,4,d) Circulatory - Lower Extremities Color Lower Right Color Lower Left Normal Normal Neurological State Oriented to time-place- Alert Moves all extremities person Respiration - General Respiration Rate SpO2 (%) (B/min) 18 100 Final Case Assessment Cardiovascular HR Rhythm NIBP Chest Pain 78 sr 90/50 0 Edema Present Skin color Skin None Normal Warm Dry Circulatory - Right Pulses Radial 1 Scale (0,1,2,3,4,d) Circulatory - Left Pulses Radial 1 Scale (0,1,2,3,4,d) Circulatory - Lower Extremities Color Lower Right Color Lower Left Normal Normal Neurological State Oriented to time-place- Alert Moves all extremities person Respiration - General Respiration Rate SpO2 (%) (B/min) 16 93 Chronological Log Time Study Chronological Log 14:37:13 Patient arrived via Bed. 14:37:14 Patient Name, D.O.B, / Armband Verified By R.N. 14:37:14 Consent signed by the physician and the patient and verified by the Cleaning And Maintenance Worker staff. 14:37:16 Pre-op and post- op instructions given; patient acknowledges understanding of instructions. 14:37:16 Verbal Stimulation=2 Physical Stimulation=2 Airway=2 Respiration=2 TOTAL=8. (0=absent, 1=li mited, 2=present) 14:37:30 Patient has been NPO for More than 6Hrs. 14:37:31 Skin Breakdown- none per pt 14:37:36 Patient Warmer Placed on the Table. 14:37:37 Disposable Defibrillator Pads Placed On Patient. 14:37:38 Megan Prominences Protected 14:37:39 A IV was noted in the Upper Arm (left). Grade = 0 picc line 14:37:42 History and physical on the chart or being dictated. 14:37:50 Anesthesia at bedside. Assumes care of patient. Assessment: Initial Case, BC=823 BPM, Rhythm=sr, BHXR=417/76 mmhg, Chest Pain=0, Edema=None, Co val=Normal, Skin = Warm, Dry Right Pulses: Radial=2 Left Pulses: Radial=2 14:43:45 Lower Right Extremities: Color=Normal Lower Left Extremities: Color=Normal Neurological: State=Alert, Ox3, [place] Respiration: Resp=18 B/min, SlY1=500 % 14:51:26 2% CHLORHEXIDINE GLUCONATE WASH AND NASAL SWIPE DONE PRIOR TO PROCEDURE. 14:51:37 Bovie ground pad applied to: right thigh 14:54:30 Table restraints applied according to hospital policy 14:54:36 Upper Chest Prepped Times Two. 14:58:43 Reference ECG taken First Sponge And Instrument Count Done by Balbir Hernández, RT(R). 14:59:34 Hypo's: 2, Sponges: 20, Bovie/scratch: 2 Sutures: 1, Blades: 1, Instruments: 26, Syveck Patches: 0 Verified w DC 1 g VANCOMYCIN DRIP given in lab by Anesthesia, WOOD PATTERN MAKER via Peripheral IV. Ordered by Andrew Cervantes Reason: As per 15:02:38 physicians verbal order. Time Out. Correct patient, procedure, procedure equipment, site and side verified with physicia n present. Time 15:10:00 concurred by MD, individual staff and WOOD PATTERN MAKER. Time Out #2 - Consents verified, patient in correct position, all results are labled and displa yed, safety precautions 15:10:16 taken, antibiotics administered. Time out concurred by MD, individual staff and WOOD PATTERN MAKER in procedu re 15:10:30 Case Start 15:10:32 50 mL 2% XYLOCAINE given in lab by Tamara Cervantes in Left upper chest via Subcutaneous. 15:11:15 Surgical Incision Made. 15:12:23 A pocket was created at the L Upper Chest. 15:13:02 A device was explanted. 15:13:07 Implant Procedure was performed. 15:13:13 A PPM Removal - ICD 15:16:58 Pocket flushed with antibiotic solution Second Sponge And Instrument Count Done by Balbir Hernández, RT(R). 15:17:14 Hypo's: 2, Sponges: 20, Bovie/scratch: 2 Sutures: ~SUTURE~, Blades: 1, Instruments: ~INSTRU~, Syveck Patches: ~SYVECK PATCH~ 15:22:29 The pocket was closed. The Final Sponge And Instrument Count Done by Balbir Hernández RT(R). 15:23:17 Hypo's: 2, Sponges: 20, Bovie/scratch: 2 Sutures: 1, Blades: 1, Instruments: 26, Syveck Patches: ~SYVECK PATCH~ 15:25:01 Steri-strips and a sterile dressing applied to site. 15:25:08 Case End (Physician broke scrub) 15:26:53 PACU called. Spoke to Taye 15:27:04 Bedside Report will be given. Assessment: Final Case, HR=78 BPM, Rhythm=sr, NIBP=90/50 mmhg, Chest Pain=0, Edema=None, Color= Normal, Skin = Warm, Dry Right Pulses: Radial=1 Left Pulses: Radial=1 15:31:20 Lower Right Extremities: Color=Normal Lower Left Extremities: Color=Normal Neurological: State=Alert, Ox3, [place] Respiration: Resp=16 B/min, SpO2=93 % 15:35:58 [facility] Study - Contrast Media Used In Study Contrast Total Opened (mL) Total Used (mL) Total Wasted (mL) Unspecified 0 0 0 End Study - Maximum Contrast Load Max Contrast Load (mL) 313.1 End Study - Radiation Exposure Fluoro Time (minutes) 0.1 End Study - Patient Disposition Complications Transferred To Interventional Outcome No Telemetry Bed successful
[2018-10-11] MEDS ORDERED: fentaNYL Citrate Inj 100 MCG/2 ML Ampul ONE (15:38)
--- NOTE | 2018-10-11 17:42 | MP ---
cc: Tamara Cervantes MD, Abednego MD Seide, Hanscy MD DATE OF OPERATION: 10/11/2018 PROCEDURE PERFORMED: Defibrillator removal, right atrial lead extraction, ventricular lead extraction. INDICATIONS: Mrs. Hernandez is a 42-year-old female with history of fast syncope, possible long QT, previous defibrillator implanted. Multiple on and off device insertion. Last interrogation of the device showed poor capture. X-ray showed all the leads all the way close to the device in the left subclavian. The decision for generator removal was taken. The risks, the nature and the benefits of the procedure were clearly stated to her. Risks include pneumothorax, cardiac perforation, stroke and even . She understood and agreed to proceed. DESCRIPTION OF PROCEDURE: After informed consent was obtained, the patient brought her to the EP lab where she was prepped and draped in the usual sterile fashion. Conscious sedation was initiated and maintained throughout the procedure by the anesthesiologist. Once sedation was verified, the left infraclavicular area was anesthetized with 2% Xylocaine. Using an #11 blade scalpel, a 2 cm incision was made over the generator. This incision was taken down to the deep fascial layer using Bovie cautery and blunt dissection. Once exposed, the generator was cut from the pocket. Scar tissue was removed from the lead. Basically, the leads were already in the pocket when I opened the pocket. At this point, I did remove the leads and the generator. The pocket was copiously irrigated with antibiotic solution. The pocket was reapproximated using #2 Ethibond suture in a continuous fashion. The subcuticular layer was approximated using #2-0 Vicryl suture in a continuous fashion. Dermabond adhesive was applied to the wound followed by a sterile pressure dressing. There was no complication. The patient tolerated the procedure. Blood loss minimal. EXPLANTED LEAD: For information about explanted lead, please refer to previous implantation. The device was implanted in 06/2018. CONCLUSION: Successful right ventricular lead extraction, right atrial lead extraction, defibrillator removal. RECOMMENDATIONS: Mrs. Hernandez at this point can be discharged home. I will not implanted a new device in her. The case was discussed with her on multiple occasions. 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 No medication. Put her in a defibrillatory vest. The patient can be discharged home whenever it is okay with the managing team. MD ALISSA Greenberg/duy , 03:33 PM , 03:45 PM
--- NOTE | 2018-10-11 17:43 | P.PNIM ---
Subjective Interval history: patient seen this afternoon after ICD removal. No new complaints at present. Physical Exam Vital signs: Last Vital Signs Temp 97.8 F 10/11/18 12:00 Pulse 62 10/11/18 12:00 Resp 14 10/11/18 12:00 BP 124/59 L 10/11/18 12:00 Pulse Ox 96 10/11/18 15:41 Intake & Output 10/09/18 10/10/18 10/11/18 10/12/18 06:59 06:59 06:59 06:59 Intake Total 1660 / 1660 900 / 900 1440 / 1440 Output Total 1999 / 1999 3700 / 3700 Balance -340 / -340 900 / 900 -2260 / -2260 Weight 83.8 kg 83.8 kg 81.4 kg Narrative: focused exam-has dressing on lt sub clavicular area, it appears clean. no tenderness. Urinary Catheter Management Indwelling Urethral Catheter: Cath placed during this visit: yes, but has since been removed by the nurse Removal date: 08/07/18 Removal time: 18:00 Results Labs CBC & Chem 7: 10/03/18 06:00 10/04/18 05:30 Procedures Procedures: None Assessment and Plan Plan 42-year-old female with a history of ?Brugada syndrome status post AICD placement who presented to the emergency department on 08/02/2018 due to generalized weakness. Patient was found to have bradycardia with heart rate in the 30s and 40s. Patient has a history of chronic kidney disease, gastroparesis , hypothyroidism, lupus. She also has a history of Crohn's disease. History of chronic pain syndrome Possible seizures -Continue with morphine slow release 30 mg at night and 15 mg during the day. -Tylenol PRN for additional moderate pain (allergic to Toradol) -Oxycodone for breakthrough. -As needed Valium 5 mg po q8h. AICD malfunction/probable dislodged pacemaker lead Infective endocarditis involving tricuspid valve Brugada syndrome s/p AICD -status post lead extraction and placement of new leads -Temporary pacer followed by pacemaker lead extraction and new lead placements by . -2D echo showed tricuspid valve endocarditis, now s/p antibiotic treatment Prior ICD pocket infection in December 2017 and February 2018. Recently replaced by Dr. Cervantes. Per device rep she did not follow-up device check. Completed course of vancomycin, aztreonam per ID on 09/17/18 -There is strong suspicion that patient has been manipulating device leads. -Difficult to find other facilities to accept her due to multiple dislodgement of device leads 10/08/2018: Left chest has a small scab which was cultured on 10/06/2018 - showed heavy MRSA growth. Patient is not any abx and has not had any systemic symptoms such as fever, chills. 10/10-patient says intermittent drainage from wound when she cleans,there is non at present. will start oral Doxycycline for 1 week. 10/11--AICD removed this afternoon, she is planned for a life vest pending insurance approval. Dr. Cervantes also plans to start a B mark Tricuspid valve endocarditis History of ICD pocket infection most recently with MRSA February 2018. She has undergone device removal on 2 prior occasions. Most recently was removed in February 2018 with wound VAC placement. Device replaced 06/27/18. 2D echo showed tricuspid valve endocarditis while bld cx's are neg -Completed Abx 09/17/18. device removed as above. Crohn's disease -follow-up with [facility] gastroenterology in the end of August -continue PO steroids Chronic kidney disease stage III -Nephrology following; Currently patient has a right femoral Vas-Cath. -Continue Aldactone, potassium replacement and sodium bicarb Systemic lupus erythematosus On chronic steroids -Tapered down from stress dose steroids to chronic baseline dosing Chronic anemia/Thrombocytopenia -H&H currently stable, continue to monitor. PROPH: SCDs for DVT prophylaxis and heparin 5000 units subcu every 8 Protonix 40 mg daily for stress ulcer prophylaxis. Progress Note: Quality VTE Deep Vein Thrombosis/Pulmonary Embolism Present on Admission: No
[2018-10-11] MEDS: LORazepam 1 MG Tablet PO SCH (20:34)
[2018-10-11] MEDS: Melatonin 5 MG Tablet PO SCH (20:34)
[2018-10-12] MEDS: Levothyroxine 112 MCG Tablet PO SCH (05:55)
[2018-10-12] MEDS: Heparin - SQ 10,000 UNITS/ML Vial SQ SCH ×2 (05:56→13:32)
[2018-10-12] MEDS: Sodium Bicarbonate 650 MG Tablet PO SCH ×3 (08:48→18:19)
[2018-10-12] MEDS: Senna/Docusate Sodium 8.6/50 MG Tablet PO SCH ×2 (08:48→20:46)
[2018-10-12] MEDS: Lisinopril 5 MG Tablet PO SCH (08:48)
[2018-10-12] MEDS: Morphine Sulfate 15 MG SR Tablet PO SCH ×2 (08:48→20:43)
[2018-10-12] MEDS: amLODIPine 5 MG Tablet PO SCH (08:48)
[2018-10-12] MEDS: Heparin Central Flush 100 UNIT/ML 5 ML Vial IV.FLUSH SCH (08:49)
[2018-10-12] MEDS: predniSONE 20 MG Tablet PO SCH (08:49)
[2018-10-12] MEDS: Spironolactone 25 MG Tablet PO SCH ×2 (08:49→18:19)
--- NOTE | 2018-10-12 17:13 | P.PNIM ---
Subjective Interval history: generalized pain. still having menstrual bleeding. Physical Exam Vital signs: Last Vital Signs Temp 99.2 F 10/12/18 16:00 Pulse 86 10/12/18 16:00 Resp 18 10/12/18 16:00 BP 92/51 L 10/12/18 16:00 Pulse Ox 97 10/12/18 16:00 Intake & Output 10/10/18 10/11/18 10/12/18 10/13/18 06:59 06:59 06:59 06:59 Intake Total 900 / 900 1440 / 1440 530 / 530 Output Total 3700 / 3700 2480 / 2480 Balance 900 / 900 -2260 / -2260 -1950 / -1950 Weight 83.8 kg 81.4 kg 82.1 kg Urinary Catheter Management Indwelling Urethral Catheter: Cath placed during this visit: yes, but has since been removed by the nurse Removal date: 08/07/18 Removal time: 18:00 Results Labs CBC & Chem 7: 10/03/18 06:00 10/04/18 05:30 Procedures Procedures: None Assessment and Plan Plan 42-year-old female with a history of ?Brugada syndrome status post AICD placement who presented to the emergency department on 08/02/2018 due to generalized weakness. Patient was found to have bradycardia with heart rate in the 30s and 40s. Patient has a history of chronic kidney disease, gastroparesis , hypothyroidism, lupus. She also has a history of Crohn's disease. History of chronic pain syndrome Possible seizures -Continue with morphine slow release 30 mg at night and 15 mg during the day. -Tylenol PRN for additional moderate pain (allergic to Toradol) -Oxycodone for breakthrough. -As needed Valium 5 mg po q8h. AICD malfunction/probable dislodged pacemaker lead Infective endocarditis involving tricuspid valve Brugada syndrome s/p AICD -status post lead extraction and placement of new leads -Temporary pacer followed by pacemaker lead extraction and new lead placements by . -2D echo showed tricuspid valve endocarditis, now s/p antibiotic treatment Prior ICD pocket infection in December 2017 and February 2018. Recently replaced by Dr. Cervantes. Per device rep she did not follow-up device check. Completed course of vancomycin, aztreonam per ID on 09/17/18 -There is strong suspicion that patient has been manipulating device leads. -Difficult to find other facilities to accept her due to multiple dislodgement of device leads 10/08/2018: Left chest has a small scab which was cultured on 10/06/2018 - showed heavy MRSA growth. Patient is not any abx and has not had any systemic symptoms such as fever, chills. 10/10-patient says intermittent drainage from wound when she cleans,there is non at present. will start oral Doxycycline for 1 week. 10/11--AICD removed this afternoon, she is planned for a life vest pending insurance approval. Dr. Cervantes also plans to start a B mark Tricuspid valve endocarditis History of ICD pocket infection most recently with MRSA February 2018. She has undergone device removal on 2 prior occasions. Most recently was removed in February 2018 with wound VAC placement. Device replaced 06/27/18. 2D echo showed tricuspid valve endocarditis while bld cx's are neg -Completed Abx 09/17/18. device removed as above. Crohn's disease -follow-up with [facility] gastroenterology in the end of August -continue PO steroids Chronic kidney disease stage III -Nephrology following; Currently patient has a right femoral Vas-Cath. -Continue Aldactone, potassium replacement and sodium bicarb Systemic lupus erythematosus On chronic steroids -Tapered down from stress dose steroids to chronic baseline dosing Chronic anemia/Thrombocytopenia -H&H currently stable, continue to monitor. PROPH: SCDs for DVT , hold heparin for now in light of continued menstrual bleeding. Protonix 40 mg daily for stress ulcer prophylaxis. Progress Note: Quality VTE Deep Vein Thrombosis/Pulmonary Embolism Present on Admission: No
[2018-10-12] MEDS: Melatonin 5 MG Tablet PO SCH (20:42)
[2018-10-12] MEDS: LORazepam 1 MG Tablet PO SCH (20:43)
[2018-10-13] MEDS: Levothyroxine 112 MCG Tablet PO SCH (06:29)
[2018-10-13] MEDS: Spironolactone 25 MG Tablet PO SCH ×2 (09:03→18:21)
[2018-10-13] MEDS: amLODIPine 5 MG Tablet PO SCH (09:04)
[2018-10-13] MEDS: Lisinopril 5 MG Tablet PO SCH (09:05)
[2018-10-13] MEDS: Sodium Bicarbonate 650 MG Tablet PO SCH ×3 (09:05→18:22)
[2018-10-13] MEDS: predniSONE 20 MG Tablet PO SCH (09:06)
[2018-10-13] MEDS: Heparin Central Flush 100 UNIT/ML 5 ML Vial IV.FLUSH SCH (09:06)
[2018-10-13] MEDS: Senna/Docusate Sodium 8.6/50 MG Tablet PO SCH ×2 (09:06→21:26)
[2018-10-13] MEDS: Morphine Sulfate 15 MG SR Tablet PO SCH ×2 (09:07→21:24)
--- NOTE | 2018-10-13 14:45 | P.PNIM ---
Subjective Interval history: No new complaints. still has some menstrual bleeding. Physical Exam Vital signs: Last Vital Signs Temp 98.0 F 10/13/18 12:00 Pulse 92 H 10/13/18 12:00 Resp 13 10/13/18 12:00 BP 110/75 10/13/18 12:00 Pulse Ox 98 10/13/18 12:00 Intake & Output 10/11/18 10/12/18 10/13/18 10/14/18 06:59 06:59 06:59 06:59 Intake Total 1440 / 1440 530 / 530 240 / 240 Output Total 3700 / 3700 2480 / 2480 Balance -2260 / -2260 -1950 / -1950 240 / 240 Weight 81.4 kg 82.1 kg 81.9 kg Urinary Catheter Management Indwelling Urethral Catheter: Cath placed during this visit: yes, but has since been removed by the nurse Removal date: 08/07/18 Removal time: 18:00 Results Labs CBC & Chem 7: 10/14/18 06:05 10/14/18 06:05 Procedures Procedures: None Assessment and Plan Plan 42-year-old female with a history of ?Brugada syndrome status post AICD placement who presented to the emergency department on 08/02/2018 due to generalized weakness. Patient was found to have bradycardia with heart rate in the 30s and 40s. Patient has a history of chronic kidney disease, gastroparesis , hypothyroidism, lupus. She also has a history of Crohn's disease. History of chronic pain syndrome Possible seizures -Continue with morphine slow release 30 mg at night and 15 mg during the day. -Tylenol PRN for additional moderate pain (allergic to Toradol) -Oxycodone for breakthrough. -As needed Valium 5 mg po q8h. AICD malfunction/probable dislodged pacemaker lead Infective endocarditis involving tricuspid valve Brugada syndrome s/p AICD -status post lead extraction and placement of new leads -Temporary pacer followed by pacemaker lead extraction and new lead placements by . -2D echo showed tricuspid valve endocarditis, now s/p antibiotic treatment Prior ICD pocket infection in December 2017 and February 2018. Recently replaced by Dr. Cervantes. Per device rep she did not follow-up device check. Completed course of vancomycin, aztreonam per ID on 09/17/18 -There is strong suspicion that patient has been manipulating device leads. -Difficult to find other facilities to accept her due to multiple dislodgement of device leads 10/08/2018: Left chest has a small scab which was cultured on 10/06/2018 - showed heavy MRSA growth. Patient is not any abx and has not had any systemic symptoms such as fever, chills. 10/10-patient says intermittent drainage from wound when she cleans,there is non at present. will start oral Doxycycline for 1 week. 10/11--AICD removed this afternoon, she is planned for a life vest pending insurance approval. Dr. Cervantes also plans to start a B mark Tricuspid valve endocarditis History of ICD pocket infection most recently with MRSA February 2018. She has undergone device removal on 2 prior occasions. Most recently was removed in February 2018 with wound VAC placement. Device replaced 06/27/18. 2D echo showed tricuspid valve endocarditis while bld cx's are neg -Completed Abx 09/17/18. device removed as above. Crohn's disease -follow-up with [facility] gastroenterology in the end of August -continue PO steroids Chronic kidney disease stage III -Nephrology following; Currently patient has a right femoral Vas-Cath. -Continue Aldactone, potassium replacement and sodium bicarb Systemic lupus erythematosus On chronic steroids -Tapered down from stress dose steroids to chronic baseline dosing Chronic anemia/Thrombocytopenia -H&H currently stable, continue to monitor. PROPH: SCDs for DVT , hold heparin for now in light of continued menstrual bleeding. Protonix 40 mg daily for stress ulcer prophylaxis. Progress Note: Quality VTE Deep Vein Thrombosis/Pulmonary Embolism Present on Admission: No
--- NOTE | 2018-10-13 17:56 | ECG ---
Date Performed: 10/11/2018 Time Performed: 15:54:12 PTAGE: 42 years EKG: Sinus rhythm . Septal T wave changes are nonspecific Low QRS voltages in precordial leads Borderline ECG PREVIOUS TRACING : 09/17/2018 13.27 DOCTOR: Tamara Cervantes Interpretating Date/Time 10/13/2018 17:35:01
[2018-10-13] MEDS: Melatonin 5 MG Tablet PO SCH (21:24)
[2018-10-13] MEDS: LORazepam 1 MG Tablet PO SCH (21:25)
[2018-10-14] MEDS ORDERED: Cathflo Activase Inj 2 MG Vial I-CATHETER ONE (01:36)
[2018-10-14] MEDS: Levothyroxine 112 MCG Tablet PO SCH (05:59)
[2018-10-14 06:23] LABS: Baso # (Auto) 0.1 th/mm3 (0.0-0.2); Baso % (Auto) 0.6 % (0.0-2.0); Eos # (Auto) 0.1 th/mm3 (0.0-0.4); Eos % (Auto) 1.3 % (0.0-4.0); Hematocrit 29.7 % (35.0-46.0); Hemoglobin 9.9 gm/dL (11.6-15.3); Lymph # (Auto) 3.3 th/mm3 (1.0-4.8); Mean Corpuscular HGB Conc 33.2 % (32.0-36.0); Mean Corpuscular Hemoglobin 30.7 pg (27.0-34.0); Mean Corpuscular Volume 92.6 fL (80.0-100.0); Mean Platelet Volume 7.3 fL (7.0-11.0); Mono # (Auto) 0.9 th/mm3 (0.0-0.9); Mono % (Auto) 8.3 % (0.0-8.0); Neut # (Auto) 6.8 th/mm3 (1.8-7.7); Neut % (Auto) 60.8 % (16.0-70.0); Platelet Count 175 th/mm3 (150-450); Red Blood Count 3.21 mil/mm3 (4.00-5.30); Red Cell Distribution Width 14.8 % (11.6-17.2); White Blood Count 11.2 th/mm3 (4.0-11.0)
[2018-10-14 06:40] LABS: Calcium 8.1 mg/dL (8.5-10.1); Carbon Dioxide 29.3 meq/L (21.0-32.0); Potassium 4.5 meq/L (3.5-5.1)
[2018-10-14] MEDS: Spironolactone 25 MG Tablet PO SCH ×2 (08:59→19:11)
[2018-10-14] MEDS: Lisinopril 5 MG Tablet PO SCH (08:59)
[2018-10-14] MEDS: Sodium Bicarbonate 650 MG Tablet PO SCH ×3 (09:00→19:11)
[2018-10-14] MEDS: Morphine Sulfate 15 MG SR Tablet PO SCH ×2 (09:00→20:28)
[2018-10-14] MEDS: predniSONE 20 MG Tablet PO SCH (09:01)
[2018-10-14] MEDS: amLODIPine 5 MG Tablet PO SCH (09:01)
[2018-10-14] MEDS: Heparin Central Flush 100 UNIT/ML 5 ML Vial IV.FLUSH SCH (09:02)
[2018-10-14] MEDS: Senna/Docusate Sodium 8.6/50 MG Tablet PO SCH ×2 (09:03→20:29)
--- NOTE | 2018-10-14 13:24 | P.PNIM ---
Subjective Interval history: some improvement with bleeding. Physical Exam Vital signs: Last Vital Signs Temp 98.2 F 10/14/18 08:00 Pulse 101 H 10/14/18 08:00 Resp 16 10/14/18 08:00 BP 100/57 L 10/14/18 08:00 Pulse Ox 98 10/14/18 08:00 Intake & Output 10/12/18 10/13/18 10/14/18 10/15/18 06:59 06:59 06:59 06:59 Intake Total 530 / 530 240 / 240 720 / 720 Output Total 2480 / 2480 Balance -1950 / -1950 240 / 240 720 / 720 Weight 82.1 kg 81.9 kg 81.8 kg Urinary Catheter Management Indwelling Urethral Catheter: Cath placed during this visit: yes, but has since been removed by the nurse Removal date: 08/07/18 Removal time: 18:00 Results Labs CBC & Chem 7: 10/14/18 06:05 10/14/18 06:05 Procedures Procedures: None Assessment and Plan Plan 42-year-old female with a history of ?Brugada syndrome status post AICD placement who presented to the emergency department on 08/02/2018 due to generalized weakness. Patient was found to have bradycardia with heart rate in the 30s and 40s. Patient has a history of chronic kidney disease, gastroparesis , hypothyroidism, lupus. She also has a history of Crohn's disease. History of chronic pain syndrome Possible seizures -Continue with morphine slow release 30 mg at night and 15 mg during the day. -Tylenol PRN for additional moderate pain (allergic to Toradol) -Oxycodone for breakthrough. -As needed Valium 5 mg po q8h. AICD malfunction/probable dislodged pacemaker lead Infective endocarditis involving tricuspid valve Brugada syndrome s/p AICD -status post lead extraction and placement of new leads -Temporary pacer followed by pacemaker lead extraction and new lead placements by . -2D echo showed tricuspid valve endocarditis, now s/p antibiotic treatment Prior ICD pocket infection in December 2017 and February 2018. Recently replaced by Dr. Cervantes. Per device rep she did not follow-up device check. Completed course of vancomycin, aztreonam per ID on 09/17/18 -There is strong suspicion that patient has been manipulating device leads. -Difficult to find other facilities to accept her due to multiple dislodgement of device leads 10/08/2018: Left chest has a small scab which was cultured on 10/06/2018 - showed heavy MRSA growth. Patient is not any abx and has not had any systemic symptoms such as fever, chills. 10/10-patient says intermittent drainage from wound when she cleans,there is non at present. will start oral Doxycycline for 1 week. 10/11--AICD removed this afternoon, she is planned for a life vest pending insurance approval. Dr. Cervantes also plans to start a B mark Tricuspid valve endocarditis History of ICD pocket infection most recently with MRSA February 2018. She has undergone device removal on 2 prior occasions. Most recently was removed in February 2018 with wound VAC placement. Device replaced 06/27/18. 2D echo showed tricuspid valve endocarditis while bld cx's are neg -Completed Abx 09/17/18. device removed as above. Crohn's disease -follow-up with [facility] gastroenterology in the end of August -continue PO steroids Chronic kidney disease stage III -Nephrology following; Currently patient has a right femoral Vas-Cath. -Continue Aldactone, potassium replacement and sodium bicarb Systemic lupus erythematosus On chronic steroids -Tapered down from stress dose steroids to chronic baseline dosing Chronic anemia/Thrombocytopenia -H&H currently stable, continue to monitor. PROPH: SCDs for DVT ,heparin Protonix 40 mg daily for stress ulcer prophylaxis. Progress Note: Quality VTE Deep Vein Thrombosis/Pulmonary Embolism Present on Admission: No
--- NOTE | 2018-10-14 16:38 | ECG ---
Date Performed: 10/12/2018 Time Performed: 15:35:27 PTAGE: 42 years EKG: Sinus rhythm Since the previous tracing, no significant change noted NORMAL ECG PREVIOUS TRACING : 10/11/2018 15.54 DOCTOR: Randolph Payan Interpretating Date/Time 10/14/2018 16:36:17
[2018-10-14] MEDS: Melatonin 5 MG Tablet PO SCH (20:27)
[2018-10-14] MEDS: LORazepam 1 MG Tablet PO SCH (20:28)
[2018-10-15] MEDS: Levothyroxine 112 MCG Tablet PO SCH (05:35)
[2018-10-15] MEDS: Lisinopril 5 MG Tablet PO SCH (08:26)
[2018-10-15] MEDS: Spironolactone 25 MG Tablet PO SCH ×2 (08:27→18:13)
[2018-10-15] MEDS: predniSONE 20 MG Tablet PO SCH (08:27)
[2018-10-15] MEDS: Senna/Docusate Sodium 8.6/50 MG Tablet PO SCH ×2 (08:29→20:46)
[2018-10-15] MEDS: Heparin Central Flush 100 UNIT/ML 5 ML Vial IV.FLUSH SCH (08:30)
[2018-10-15] MEDS: amLODIPine 5 MG Tablet PO SCH (08:31)
[2018-10-15] MEDS: Sodium Bicarbonate 650 MG Tablet PO SCH ×2 (08:42→13:22)
[2018-10-15] MEDS: Morphine Sulfate 15 MG SR Tablet PO SCH ×2 (10:02→20:45)
[2018-10-15] MEDS: Heparin - SQ 10,000 UNITS/ML Vial SQ SCH ×2 (13:24→22:36)
--- NOTE | 2018-10-15 15:17 | P.PNIM ---
Subjective Interval history: c/o swelling and pain just below left armpit and breast. Physical Exam Vital signs: Last Vital Signs Temp 98.0 F 10/15/18 12:00 Pulse 64 10/15/18 12:00 Resp 16 10/15/18 12:00 BP 97/55 L 10/15/18 12:00 Pulse Ox 96 10/15/18 12:00 Intake & Output 10/13/18 10/14/18 10/15/18 10/16/18 06:59 06:59 06:59 06:59 Intake Total 240 / 240 720 / 720 880 / 880 Output Total 2100 / 2100 Balance 240 / 240 720 / 720 -1220 / -1220 Weight 81.9 kg 81.8 kg 81.5 kg Narrative: GENERAL: This is a well-nourished, well-developed patient, in no apparent distress. HEENT:not pale,anicteric CARDIOVASCULAR: Regular rate and rhythm without murmurs, gallops, or rubs. RESPIRATORY: Clear to auscultation. Breath sounds equal bilaterally. No wheezes , rales, or rhonchi. GASTROINTESTINAL: Abdomen soft, non-tender, nondistended. Normal active bowel sounds MUSCULOSKELETAL: Extremities without clubbing, cyanosis, or edema. NEURO: Alert & Oriented x4 to person, place, time, situation. Moves all ext x4 CHEST:Dressing and steri strips in situ left subclavicular area Examined left armpit and lateral aspect of lt breast mild swelling on distal anterior wall of left axilla,mildly tender,no fluctuance.(chaperoned by nurse Kirti Martinez) Urinary Catheter Management Indwelling Urethral Catheter: Cath placed during this visit: yes, but has since been removed by the nurse Removal date: 08/07/18 Removal time: 18:00 Results Labs CBC & Chem 7: 10/14/18 06:05 10/14/18 06:05 Procedures Procedures: None Assessment and Plan Plan 42-year-old female with a history of ?Brugada syndrome status post AICD placement who presented to the emergency department on 08/02/2018 due to generalized weakness. Patient was found to have bradycardia with heart rate in the 30s and 40s. Patient has a history of chronic kidney disease, gastroparesis , hypothyroidism, lupus. She also has a history of Crohn's disease. History of chronic pain syndrome Possible seizures -Continue with morphine slow release 30 mg at night and 15 mg during the day. -Tylenol PRN for additional moderate pain (allergic to Toradol) -Oxycodone for breakthrough. -As needed Valium 5 mg po q8h. AICD malfunction/probable dislodged pacemaker lead Infective endocarditis involving tricuspid valve Brugada syndrome s/p AICD -status post lead extraction and placement of new leads -Temporary pacer followed by pacemaker lead extraction and new lead placements by . -2D echo showed tricuspid valve endocarditis, now s/p antibiotic treatment Prior ICD pocket infection in December 2017 and February 2018. Recently replaced by Dr. Cervantes. Per device rep she did not follow-up device check. Completed course of vancomycin, aztreonam per ID on 09/17/18 -There is strong suspicion that patient has been manipulating device leads. -Difficult to find other facilities to accept her due to multiple dislodgement of device leads 10/08/2018: Left chest has a small scab which was cultured on 10/06/2018 - showed heavy MRSA growth. Patient is not any abx and has not had any systemic symptoms such as fever, chills. 10/10-patient says intermittent drainage from wound when she cleans,there is non at present. will start oral Doxycycline for 1 week. 10/11--AICD removed this afternoon, she is planned for a life vest pending insurance approval. Dr. Cervantes also plans to start a B mark Tricuspid valve endocarditis History of ICD pocket infection most recently with MRSA February 2018. She has undergone device removal on 2 prior occasions. Most recently was removed in February 2018 with wound VAC placement. Device replaced 06/27/18. 2D echo showed tricuspid valve endocarditis while bld cx's are neg -Completed Abx 09/17/18. device removed as above. Crohn's disease -follow-up with [facility] gastroenterology in the end of August -continue PO steroids Chronic kidney disease stage III -Nephrology following; Currently patient has a right femoral Vas-Cath. -Continue Aldactone, potassium replacement and sodium bicarb Systemic lupus erythematosus On chronic steroids -Tapered down from stress dose steroids to chronic baseline dosing Chronic anemia/Thrombocytopenia -H&H currently stable, continue to monitor. mild swelling anterior wall distal lt armpit-pt c/o pain. obtain ultrasound for further eval. likely benign. PROPH: SCDs for DVT ,heparin Protonix 40 mg daily for stress ulcer prophylaxis. Progress Note: Quality VTE Deep Vein Thrombosis/Pulmonary Embolism Present on Admission: No
--- NOTE | 2018-10-15 16:22 | P.PNNP ---
Subjective Interval history: Reports shortness of breath and some chest discomfort. Creatinine at 1.50 today. <Cher Freeman - Last Filed: 10/15/18 16:16> Physical Exam Vital signs: Vital Signs 10/14/18 20:00 10/15/18 00:00 10/15/18 01:41 Temperature 98.7 F 98.8 F Pulse Rate 92 H 87 Respiratory Rate 14 14 17 Blood Pressure 115/69 99/58 L Pulse Oximetry 99 97 10/15/18 04:00 10/15/18 08:00 10/15/18 12:00 Temperature 98 F 98.3 F 98.0 F Pulse Rate 97 H 78 64 Respiratory Rate 14 17 16 Blood Pressure 103/59 L 111/58 L 97/55 L Pulse Oximetry 94 L 94 L 96 Intake & Output 10/14/18 10/15/18 10/15/18 18:59 06:59 18:59 Intake Total 640 / 640 240 / 240 Output Total 2100 / 2100 Balance 640 / 640 -1860 / -1860 Weight 81.5 kg Intake: Oral 640 / 640 240 / 240 Output: Urine 2100 / 2100 Other: # Voids 4 Date of Last Bowel Movement 10/13/18 10/14/18 10/14/18 # Bowel Movements 0 1 Narrative: GENERAL:Alert and oriented. SKIN: Warm and dry. NECK: Supple, trachea midline. No JVD CARDIOVASCULAR: Regular rate and rhythm without murmurs, gallops, or rubs. Dressing on left chest wall. RESPIRATORY: Breath sounds equal bilaterally. No accessory muscle use. GASTROINTESTINAL: Abdomen soft, non-tender, nondistended. MUSCULOSKELETAL: No cyanosis, or edema. BACK: Nontender without obvious deformity. No CVA tenderness. - Urinary Catheter Management Indwelling Urethral Catheter Cath placed during this visit: yes, but has since been removed by the nurse Reason for continuing: Decision to DC catheter Removal date: 08/07/18 Removal time: 18:00 <Cher Freeman - Last Filed: 10/15/18 16:16> Vital signs: Vital Signs 10/16/18 20:00 10/17/18 00:00 10/17/18 04:00 Temperature 98.2 F 97.8 F 97.7 F Pulse Rate 79 104 H 64 Respiratory Rate 17 18 19 Blood Pressure 125/57 L 110/65 106/62 Pulse Oximetry 98 96 98 10/17/18 08:00 10/17/18 12:00 10/17/18 16:00 Temperature 98 F 98.1 F Pulse Rate 64 68 64 Respiratory Rate 16 18 Blood Pressure 110/58 L 102/57 L Pulse Oximetry 99 98 Intake & Output 10/16/18 10/17/18 10/17/18 18:59 06:59 18:59 Intake Total 720 / 720 420 / 420 Output Total 2500 / 2500 620 / 620 Balance -1780 / -1780 -200 / -200 Intake: Oral 720 / 720 420 / 420 Output: Urine 2500 / 2500 620 / 620 Other: # Bowel Movements 1 - Urinary Catheter Management Indwelling Urethral Catheter Cath placed during this visit: no <Slim Arrieta - Last Filed: 10/17/18 18:26> Assessment and Plan - Assessment (1) Acute kidney injury superimposed on CKD Code(s): N17.9 - Acute kidney failure, unspecified; N18.9 - Chronic kidney disease, unspecified Status: Acute Plan: SHABANA with RTA, hx of lupus Creatinine slightly elevated at 1.5 yesterday. Continue Aldactone, potassium replacement and NaHCO3. NaHCO3 decreased. Fluids encouraged. With fluctuating creatinine and hx of lupus, patient will need Kidney biopsy prior to discharge. (2) Hypertension Code(s): I10 - Essential (primary) hypertension Status: Chronic Qualifiers: Hypertension type: essential hypertension Qualified Code(s): I10 - Essential (primary) hypertension Plan: will monitor (3) Endocarditis of tricuspid valve Code(s): I36.8 - Other nonrheumatic tricuspid valve disorders Status: Acute Plan: Antibiotics completed <Cher Freeman - Last Filed: 10/15/18 16:16> - Assessment (1) Acute kidney injury superimposed on CKD Code(s): N17.9 - Acute kidney failure, unspecified; N18.9 - Chronic kidney disease, unspecified Status: Acute Plan: Patient seen and examined, agree with above. Creatinine increase slightly to 1.5, will get Kidney Biopsy once stable. (2) Hypertension Code(s): I10 - Essential (primary) hypertension Status: Chronic Qualifiers: Hypertension type: essential hypertension Qualified Code(s): I10 - Essential (primary) hypertension (3) Endocarditis of tricuspid valve Code(s): I36.8 - Other nonrheumatic tricuspid valve disorders Status: Acute <Slim Arrieta - Last Filed: 10/17/18 18:26>
[2018-10-15] MEDS: Melatonin 5 MG Tablet PO SCH (20:44)
[2018-10-15] MEDS: LORazepam 1 MG Tablet PO SCH (20:45)
[2018-10-16] MEDS: Levothyroxine 112 MCG Tablet PO SCH (06:25)
[2018-10-16] MEDS: Heparin - SQ 10,000 UNITS/ML Vial SQ SCH ×3 (06:26→21:01)
[2018-10-16] MEDS: Spironolactone 25 MG Tablet PO SCH ×2 (08:33→19:21)
[2018-10-16] MEDS: Morphine Sulfate 15 MG SR Tablet PO SCH ×2 (08:34→20:57)
[2018-10-16] MEDS: predniSONE 20 MG Tablet PO SCH (08:34)
[2018-10-16] MEDS: Heparin Central Flush 100 UNIT/ML 5 ML Vial IV.FLUSH SCH (08:35)
[2018-10-16] MEDS: Sodium Bicarbonate 650 MG Tablet PO SCH (08:35)
[2018-10-16] MEDS: Senna/Docusate Sodium 8.6/50 MG Tablet PO SCH ×2 (08:35→21:01)
[2018-10-16] MEDS: Lisinopril 5 MG Tablet PO SCH (10:38)
[2018-10-16] MEDS: amLODIPine 5 MG Tablet PO SCH (10:38)
--- NOTE | 2018-10-16 19:24 | P.PNIM ---
Subjective Interval history: Patient complains of some left-sided lateral breast pain. Otherwise no complaints today. Physical Exam Vital signs: Vital Signs 10/15/18 20:00 10/16/18 00:00 10/16/18 04:00 Temperature 98.2 F 98.3 F 97.7 F Pulse Rate 91 H 71 75 Respiratory Rate 18 18 18 Blood Pressure 114/59 L 101/53 L 102/56 L Pulse Oximetry 98 98 98 10/16/18 08:00 10/16/18 10:36 10/16/18 12:00 Temperature 97.7 F 97.9 F Pulse Rate 54 L 96 H 77 Respiratory Rate 16 16 Blood Pressure 104/57 L 119/64 109/59 L Pulse Oximetry 98 95 10/16/18 16:00 Temperature Pulse Rate 72 Respiratory Rate Blood Pressure Pulse Oximetry Intake & Output 10/16/18 10/16/18 10/17/18 06:59 18:59 06:59 Intake Total 720 / 720 Output Total 1999 Balance -1280 / -1280 Weight 81.3 kg Intake: Oral 720 / 720 Output: Urine 1999 Other: # Bowel Movements 0 Narrative: General patient in no acute distress HEENT extraocular movements are intact, clear oropharyngeal mucosa, no JVD Cardiovascular S1-S2 audible, RRR, no murmurs rubs or gallops Respiratory clear to auscultation bilaterally Abdomen soft, nontender, nondistended, normal bowel sounds Extremities no edema 2+ distal pulses in bilateral upper and lower extremities Neuro no neurological deficits patient moves all 4 extremities and sensation is intact bilaterally. - Urinary Catheter Management Indwelling Urethral Catheter Cath placed during this visit: yes, but has since been removed by the nurse Reason for continuing: Decision to DC catheter Removal date: 08/07/18 Removal time: 18:00 Results - Labs CBC & Chem 7: 10/14/18 06:05 10/14/18 06:05 - Procedures None Assessment and Plan - Assessment (1) Endocarditis of tricuspid valve Code(s): I36.8 - Other nonrheumatic tricuspid valve disorders Status: Acute (2) Brugada syndrome Code(s): I49.8 - Other specified cardiac arrhythmias Status: Resolved (3) Hypertension Code(s): I10 - Essential (primary) hypertension Status: Chronic (4) ICD (implantable cardioverter-defibrillator) malfunction Code(s): T82.118A - Breakdown (mechanical) of other cardiac electronic device, initial encounter Status: Acute (5) Medical non-compliance Code(s): Z91.19 - Patient's noncompliance with other medical treatment and regimen Status: Acute (6) SLE (systemic lupus erythematosus) Code(s): M32.9 - Systemic lupus erythematosus, unspecified Status: Chronic (7) Chronic pain Code(s): G89.29 - Other chronic pain Status: Chronic (8) Acute kidney injury superimposed on CKD Code(s): N17.9 - Acute kidney failure, unspecified; N18.9 - Chronic kidney disease, unspecified Status: Acute - Plan This patient is a 43-year-old female with a diagnosis of Brugada syndrome status post AICD placement who presented to the emergency department on 2017 due to generalized weakness. The patient was found to have bradycardia with a heart rate in the 30s and 40s. Patient also has a history of chronic kidney disease, gastroparesis, Crohn's disease, hypothyroidism, SLE. 1. AICD malfunction/dislodged pacemaker lead 2. Infective endocarditis involving the tricuspid valve. 3. Brugada syndrome status post AICD placement. Patient is status post lead extraction. 2D echocardiogram shows tricuspid valve endocarditis, now status post antibiotic treatment. Prior ICD pocket infection in December 2017 and February 2018. Recently replaced by Dr. Cervantes. Per device rep she did not follow-up device check. Completed course of vancomycin, aztreonam per ID on 09/17/18. Blood cultures during this hospitalization are negative. As per documentation there is a strong suspicion that the patient may be manipulating device leads. The patient was evaluated by our reinforcing steel erector Dr. Cervantes who recommends a LifeVest. No beta-mark as the patient has a history of severe bradycardia. Patient is pending LifeVest insurance approval. 4. Acute kidney injury on CKD Nephrology following. Serum creatinine 1.5 as of yesterday. We will follow-up a.m. labs. As per nephrology the patient will need a kidney biopsy prior to discharge. I will discuss the case with nephrology tomorrow. 4. Crohn's disease Patient can continue to follow-up outpatient for his Crohn's disease. 5. Chronic kidney disease stage III. Nephrology following. Continue Aldactone. Continue sodium bicarb. I will continue to follow-up with nephrology recommendation. 6. SLE On chronic steroids. Patient can continue to follow-up outpatient after discharge. Heparin for DVT prophylaxis. (3) Hypertension Qualifiers: Hypertension type: essential hypertension Qualified Code(s): I10 - Essential (primary) hypertension (6) SLE (systemic lupus erythematosus) Qualifiers: Systemic lupus erythematosus type: unspecified (7) Chronic pain Qualifiers: Chronic pain type: other chronic pain Qualified Code(s): G89.29 - Other chronic pain
[2018-10-16] MEDS: LORazepam 1 MG Tablet PO SCH (20:57)
[2018-10-16] MEDS: Melatonin 5 MG Tablet PO SCH (20:59)
[2018-10-17] MEDS: Levothyroxine 112 MCG Tablet PO SCH (06:25)
[2018-10-17] MEDS: Heparin - SQ 10,000 UNITS/ML Vial SQ SCH ×2 (06:25→15:45)
[2018-10-17 08:13] LABS: Calcium 8.9 mg/dL (8.5-10.1); Carbon Dioxide 25.4 meq/L (21.0-32.0); Magnesium 2.3 mg/dL (1.5-2.5); Potassium 4.1 meq/L (3.5-5.1)
[2018-10-17] MEDS: Morphine Sulfate 15 MG SR Tablet PO SCH ×2 (08:37→20:06)
[2018-10-17] MEDS: amLODIPine 5 MG Tablet PO SCH (08:38)
[2018-10-17] MEDS: Senna/Docusate Sodium 8.6/50 MG Tablet PO SCH ×2 (08:38→20:08)
[2018-10-17] MEDS: predniSONE 20 MG Tablet PO SCH (08:38)
[2018-10-17] MEDS: Sodium Bicarbonate 650 MG Tablet PO SCH (08:38)
[2018-10-17] MEDS: Spironolactone 25 MG Tablet PO SCH ×2 (08:39→18:48)
[2018-10-17] MEDS: Lisinopril 5 MG Tablet PO SCH (08:39)
[2018-10-17] MEDS: Heparin Central Flush 100 UNIT/ML 5 ML Vial IV.FLUSH SCH (10:28)
--- NOTE | 2018-10-17 11:32 | P.PNIM ---
Subjective Interval history: Patient is in no acute distress this morning. She does complain of some pain of her left upper extremity in the left lateral breast. Physical Exam Vital signs: Vital Signs 10/16/18 12:00 10/16/18 16:00 10/16/18 20:00 Temperature 97.9 F 98.7 F 98.2 F Pulse Rate 77 81 79 Respiratory Rate 16 18 17 Blood Pressure 109/59 L 111/60 125/57 L Pulse Oximetry 95 97 98 10/17/18 00:00 10/17/18 04:00 10/17/18 08:00 Temperature 97.8 F 97.7 F 98 F Pulse Rate 104 H 64 64 Respiratory Rate 18 19 16 Blood Pressure 110/65 106/62 110/58 L Pulse Oximetry 96 98 99 Intake & Output 10/16/18 10/17/18 10/17/18 18:59 06:59 18:59 Intake Total 720 / 720 420 / 420 Output Total 2500 / 2500 620 / 620 Balance -1780 / -1780 -200 / -200 Intake: Oral 720 / 720 420 / 420 Output: Urine 2500 / 2500 620 / 620 Other: # Bowel Movements 1 Narrative: General patient in no acute distress HEENT extraocular movements are intact, clear oropharyngeal mucosa, no JVD Cardiovascular S1-S2 audible, RRR, no murmurs rubs or gallops, no abscess or fluid collection noted on the left lateral breast. Respiratory clear to auscultation bilaterally Abdomen soft, nontender, nondistended, normal bowel sounds Extremities no edema 2+ distal pulses in bilateral upper and lower extremities Neuro no neurological deficits patient moves all 4 extremities and sensation is intact bilaterally. - Urinary Catheter Management Indwelling Urethral Catheter Cath placed during this visit: yes, but has since been removed by the nurse Reason for continuing: Decision to DC catheter Removal date: 08/07/18 Removal time: 18:00 Results - Labs CBC & Chem 7: 10/14/18 06:05 10/17/18 07:15 Laboratory Results - last 24 hr 10/17/18 07:15 Sodium 138 Potassium 4.1 Chloride 104 Carbon Dioxide 25.4 Anion Gap 9 BUN 28 H Creatinine 1.48 H Estimated GFR 39 L Random Glucose 88 Calcium 8.9 Magnesium 2.3 - Procedures None Assessment and Plan - Assessment (1) Endocarditis of tricuspid valve Code(s): I36.8 - Other nonrheumatic tricuspid valve disorders Status: Acute (2) Brugada syndrome Code(s): I49.8 - Other specified cardiac arrhythmias Status: Resolved (3) Hypertension Code(s): I10 - Essential (primary) hypertension Status: Chronic (4) ICD (implantable cardioverter-defibrillator) malfunction Code(s): T82.118A - Breakdown (mechanical) of other cardiac electronic device, initial encounter Status: Acute (5) Medical non-compliance Code(s): Z91.19 - Patient's noncompliance with other medical treatment and regimen Status: Acute (6) SLE (systemic lupus erythematosus) Code(s): M32.9 - Systemic lupus erythematosus, unspecified Status: Chronic (7) Chronic pain Code(s): G89.29 - Other chronic pain Status: Chronic (8) Acute kidney injury superimposed on CKD Code(s): N17.9 - Acute kidney failure, unspecified; N18.9 - Chronic kidney disease, unspecified Status: Acute - Plan This patient is a 43-year-old female with a diagnosis of Brugada syndrome status post AICD placement who presented to the emergency department on 2017 due to generalized weakness. The patient was found to have bradycardia with a heart rate in the 30s and 40s. Patient also has a history of chronic kidney disease, gastroparesis, Crohn's disease, hypothyroidism, SLE. 1. AICD malfunction/dislodged pacemaker lead 2. Infective endocarditis involving the tricuspid valve. 3. Brugada syndrome status post AICD placement. Patient is status post lead extraction. 2D echocardiogram shows tricuspid valve endocarditis, now status post antibiotic treatment. Prior ICD pocket infection in December 2017 and February 2018. Recently replaced by Dr. Cervantes. Per device rep she did not follow-up device check. Completed course of vancomycin, aztreonam per ID on 09/17/18. Blood cultures during this hospitalization are negative. As per documentation there is a strong suspicion that the patient may be manipulating device leads. The patient was evaluated by our critical care nurse Dr. Cervantes who recommends a LifeVest. No beta-mark as the patient has a history of severe bradycardia. Patient is pending LifeVest insurance approval. We will discuss his case with case management today. 4. Acute kidney injury on CKD stage III Nephrology following. Serum creatinine 1.5 as of yesterday. Slightly down trended to 1.4 today. As per nephrology the patient will need a kidney biopsy prior to discharge. Continue Aldactone, sodium bicarb. I will discuss the case with nephrology tomorrow. 4. Crohn's disease Patient can continue to follow-up outpatient for his Crohn's disease. 5. SLE On chronic steroids. Patient can continue to follow-up outpatient after discharge. Heparin for DVT prophylaxis. (3) Hypertension Qualifiers: Hypertension type: essential hypertension Qualified Code(s): I10 - Essential (primary) hypertension (6) SLE (systemic lupus erythematosus) Qualifiers: Systemic lupus erythematosus type: unspecified (7) Chronic pain Qualifiers: Chronic pain type: other chronic pain Qualified Code(s): G89.29 - Other chronic pain
--- NOTE | 2018-10-17 15:18 | P.PNNP ---
Subjective Interval history: Resting. No acute events overnight. Left chest region with some discomfort and nausea yesterday. Denies any shortness of breath, nausea, or vomiting today. Creatinine at 1.48. <Cher Freeman - Last Filed: 10/17/18 15:11> Physical Exam Vital signs: Vital Signs 10/16/18 16:00 10/16/18 20:00 10/17/18 00:00 Temperature 98.7 F 98.2 F 97.8 F Pulse Rate 81 79 104 H Respiratory Rate 18 17 18 Blood Pressure 111/60 125/57 L 110/65 Pulse Oximetry 97 98 96 10/17/18 04:00 10/17/18 08:00 10/17/18 12:00 Temperature 97.7 F 98 F 98.1 F Pulse Rate 64 64 101 H Respiratory Rate 19 16 18 Blood Pressure 106/62 110/58 L 102/57 L Pulse Oximetry 98 99 98 Intake & Output 10/16/18 10/17/18 10/17/18 18:59 06:59 18:59 Intake Total 720 / 720 420 / 420 Output Total 2500 / 2500 620 / 620 Balance -1780 / -1780 -200 / -200 Intake: Oral 720 / 720 420 / 420 Output: Urine 2500 / 2500 620 / 620 Other: # Bowel Movements 1 Narrative: GENERAL: alert and oriented. SKIN: Warm and dry. NECK: Supple, trachea midline. No JVD CARDIOVASCULAR: Regular rate and rhythm without murmurs, gallops, or rubs. Drg on left chest wall RESPIRATORY: Breath sounds equal bilaterally. No accessory muscle use. GASTROINTESTINAL: Abdomen soft, non-tender, nondistended. MUSCULOSKELETAL: No cyanosis, or edema. BACK: Nontender without obvious deformity. No CVA tenderness. - Urinary Catheter Management Indwelling Urethral Catheter Cath placed during this visit: yes, but has since been removed by the nurse Reason for continuing: Decision to DC catheter Removal date: 08/07/18 Removal time: 18:00 <Cher Freeman - Last Filed: 10/17/18 15:11> Vital signs: Vital Signs 10/18/18 00:00 10/18/18 04:00 10/18/18 08:00 Temperature 98.5 F 98 F 98.1 F Pulse Rate 76 94 H 82 Respiratory Rate 18 17 16 Blood Pressure 104/59 L 108/62 110/63 Pulse Oximetry 95 97 97 10/18/18 10:15 10/18/18 10:36 10/18/18 10:45 Temperature 98.6 F Pulse Rate 101 H 92 H 89 Respiratory Rate 20 20 20 Blood Pressure 105/56 L 113/56 L 116/67 Pulse Oximetry 97 97 97 10/18/18 12:00 10/18/18 14:00 10/18/18 16:00 Temperature 98.5 F Pulse Rate 81 76 87 Respiratory Rate Blood Pressure 112/54 L Pulse Oximetry 94 L 10/18/18 16:06 Temperature 97.6 F Pulse Rate 111 H Respiratory Rate 18 Blood Pressure 106/50 L Pulse Oximetry 95 Intake & Output 10/18/18 10/18/18 10/19/18 06:59 18:59 06:59 Intake Total 620 / 620 240 / 240 Output Total 1400 / 1400 800 / 800 Balance -780 / -780 -560 / -560 Weight 78.9 kg Intake: Oral 620 / 620 240 / 240 Output: Urine 1400 / 1400 800 / 800 Other: # Voids 4 Date of Last Bowel Movement 10/18/18 # Bowel Movements 1 - Urinary Catheter Management Indwelling Urethral Catheter Cath placed during this visit: no <Slim Arrieta - Last Filed: 10/18/18 20:59> Assessment and Plan - Assessment (1) Acute kidney injury superimposed on CKD Code(s): N17.9 - Acute kidney failure, unspecified; N18.9 - Chronic kidney disease, unspecified Status: Acute Plan: SHABANA with RTA, hx of lupus Creatinine 1.48 Continue Aldactone, potassium replacement and NaHCO3. Fluids encouraged. With fluctuating creatinine and hx of lupus, patient will need Kidney biopsy. Ordered for tomorrow. (2) Hypertension Code(s): I10 - Essential (primary) hypertension Status: Chronic Qualifiers: Hypertension type: essential hypertension Qualified Code(s): I10 - Essential (primary) hypertension Plan: will monitor (3) Endocarditis of tricuspid valve Code(s): I36.8 - Other nonrheumatic tricuspid valve disorders Status: Acute Plan: Antibiotics completed <Cher Freeman - Last Filed: 10/17/18 15:11> - Assessment (1) Acute kidney injury superimposed on CKD Code(s): N17.9 - Acute kidney failure, unspecified; N18.9 - Chronic kidney disease, unspecified Status: Acute Plan: Patient seen and examined, agree with above. Will get Renal Biopsy as Creatinine has been off and increasing. (2) Hypertension Code(s): I10 - Essential (primary) hypertension Status: Chronic Qualifiers: Hypertension type: essential hypertension Qualified Code(s): I10 - Essential (primary) hypertension (3) Endocarditis of tricuspid valve Code(s): I36.8 - Other nonrheumatic tricuspid valve disorders Status: Acute <Slim Arrieta - Last Filed: 10/18/18 20:59>
[2018-10-17] MEDS: Melatonin 5 MG Tablet PO SCH (20:06)
[2018-10-17] MEDS: LORazepam 1 MG Tablet PO SCH (20:07)
[2018-10-18] MEDS: Levothyroxine 112 MCG Tablet PO SCH (05:11)
[2018-10-18] MEDS: Spironolactone 25 MG Tablet PO SCH ×2 (08:29→17:52)
[2018-10-18] MEDS: Lisinopril 5 MG Tablet PO SCH (08:29)
[2018-10-18] MEDS: Senna/Docusate Sodium 8.6/50 MG Tablet PO SCH ×2 (08:29→22:14)
[2018-10-18] MEDS: amLODIPine 5 MG Tablet PO SCH (08:29)
[2018-10-18] MEDS: Sodium Bicarbonate 650 MG Tablet PO SCH (08:29)
[2018-10-18] MEDS: predniSONE 20 MG Tablet PO SCH (08:29)
[2018-10-18] MEDS: Heparin Central Flush 100 UNIT/ML 5 ML Vial IV.FLUSH SCH (08:30)
[2018-10-18] MEDS: Morphine Sulfate 15 MG SR Tablet PO SCH ×2 (08:30→20:06)
[2018-10-18] MEDS ORDERED: fentaNYL Citrate Inj 250 MCG/5 ML Ampul ONE (09:29)
[2018-10-18] MEDS ORDERED: HYDROmorphone PF Inj 2 MG/ML Vial ONE (10:06)
[2018-10-18 10:49] LABS: Hematocrit 32.5 % (35.0-46.0); Hemoglobin 10.6 gm/dL (11.6-15.3)
--- NOTE | 2018-10-18 10:52 | P.RAD ---
Post Procedure Progress Note - Pre Procedure Diagnosis (1) Renal disease - Post Procedure Diagnosis (1) Renal disease - Procedure Information Procedure Date: 10/18/18 Supervising Radiologist: Albert Villanueva MD Anesthesia: Conscious Sedation - Plan of Activity Patient to Unit: [facility]OPU Patient Condition: Good See PACS Report for procedural detail/treatment. Biopsy CT right Kidney Specimen: Core Biopsy
--- NOTE | 2018-10-18 11:00 | CT ---
EXAM DATE: 10/18/2018 10:24 AM EST AGE/SEX: 43 years / Female INDICATIONS: Lupus, chronic kidney disease. CLINICAL DATA: This is the patient's initial encounter. Patient reports that signs and symptoms have been present for 1 day and indicates a pain score of 0/10. MEDICAL/SURGICAL HISTORY: Lupus. Renal failure, chronic. Chron' s disease. Appendectomy. COMPARISON: [facility] [place], CT ABDOMEN & PELVIS W CONTRAST, 06/04/2018. . BIOPSY SITE: Right renal MEDICATION(S): 5mg midazolam (Versed) IV 250mcg fentanyl (Sublimaze) IV DEVICE(S): 18 gauge BARD biopsy needle Three core specimen(s) sent to the laboratory for pathologic evaluation. . . PROCEDURE: CT guided Right renal biopsy Prior to the procedure informed consent was obtained. Any appropriate prior imaging studies were rev iewed. Using automated exposure control and adjustment of the mA and/or kV according to patient size, radiat ion dose was kept as low as reasonably achievable to obtain optimal diagnostic quality images. DICOM format image data is available electronically for review and comparison. The site was prepped in a sterile fashion. Full sterile technique was used, including cap, mask, jacinta rile gloves and gown and a large sterile sheet. Hand hygiene and 2% chlorhexidine and/or betadine/al cohol prep was utilized per protocol for cutaneous antisepsis. The skin and subcutaneous tissues wer e infiltrated with local anesthetic solution. With CT guidance the previously identified target was localized. Biopsy was performed using the presc ribed needle as above. Adequate hemostasis was obtained with compression at the puncture site. Follow-up CT scan reveals no hemorrhage. The patient tolerated the procedure well and there were no complications. The patient was returned to the Radiology Outpatient Unit in stable condition. FINDINGS: A targeted in the lower pole the right kidney was identified and 3 passes were made. Gelfoam was plac ed following biopsy CONCLUSION: 1. Uncomplicated CT guided biopsy. Electronically signed by: Albert Villanueva MD 10/18/2018 10:59 AM EST
[2018-10-18 14:58] LABS: Baso % (Auto) 0.2 % (0.0-2.0); Hematocrit 32.8 % (35.0-46.0); Hemoglobin 10.5 gm/dL (11.6-15.3); Lymph # (Auto) 0.8 th/mm3 (1.0-4.8); Lymph % (Auto) 4.4 % (9.0-44.0); Mean Corpuscular HGB Conc 32.1 % (32.0-36.0); Mean Corpuscular Hemoglobin 30.1 pg (27.0-34.0); Mean Platelet Volume 6.9 fL (7.0-11.0); Mono # (Auto) 0.3 th/mm3 (0.0-0.9); Mono % (Auto) 1.7 % (0.0-8.0); Neut # (Auto) 16.9 th/mm3 (1.8-7.7); Neut % (Auto) 93.7 % (16.0-70.0); Platelet Count 259 th/mm3 (150-450); Red Blood Count 3.49 mil/mm3 (4.00-5.30); Red Cell Distribution Width 14.8 % (11.6-17.2)
--- NOTE | 2018-10-18 15:36 | P.PNNP ---
Subjective Interval history: Seen in recovery room s/p kidney biopsy. Reporting increased pain from having to lay on abdomen. <Cher Freeman - Last Filed: 10/18/18 15:33> Physical Exam Vital signs: Vital Signs 10/17/18 16:00 10/17/18 20:00 10/18/18 00:00 Temperature 98.2 F 98.2 F 98.5 F Pulse Rate 73 97 H 76 Respiratory Rate 18 19 18 Blood Pressure 123/66 126/62 104/59 L Pulse Oximetry 98 98 95 10/18/18 04:00 10/18/18 08:00 10/18/18 10:15 Temperature 98 F 98.1 F 98.6 F Pulse Rate 94 H 82 101 H Respiratory Rate 17 16 20 Blood Pressure 108/62 110/63 105/56 L Pulse Oximetry 97 97 97 10/18/18 10:36 10/18/18 10:45 10/18/18 12:00 Temperature Pulse Rate 92 H 89 81 Respiratory Rate 20 20 Blood Pressure 113/56 L 116/67 Pulse Oximetry 97 97 10/18/18 14:00 Temperature 98.5 F Pulse Rate 76 Respiratory Rate Blood Pressure 112/54 L Pulse Oximetry 94 L Intake & Output 10/17/18 10/18/18 10/18/18 18:59 06:59 18:59 Intake Total 620 / 620 Output Total 1400 / 1400 Balance -780 / -780 Weight 78.9 kg Intake: Oral 620 / 620 Output: Urine 1400 / 1400 Other: # Voids 4 Narrative: GENERAL: alert and oriented. SKIN: Warm and dry. NECK: Supple, trachea midline. No JVD CARDIOVASCULAR: Regular rate and rhythm without murmurs, gallops, or rubs. Drg on left chest wall RESPIRATORY: Breath sounds equal bilaterally. No accessory muscle use. GASTROINTESTINAL: Abdomen soft, non-tender, nondistended. MUSCULOSKELETAL: No cyanosis, or edema. BACK: Nontender without obvious deformity. No CVA tenderness. - Urinary Catheter Management Indwelling Urethral Catheter Cath placed during this visit: yes, but has since been removed by the nurse Reason for continuing: Decision to DC catheter Removal date: 08/07/18 Removal time: 18:00 <Cher Freeman - Last Filed: 10/18/18 15:33> Vital signs: Vital Signs 10/19/18 00:00 10/19/18 04:00 10/19/18 08:00 Temperature 98.4 F 98.5 F 98.4 F Pulse Rate 71 85 75 Respiratory Rate 19 18 17 Blood Pressure 103/59 L 100/59 L 115/74 Pulse Oximetry 99 96 100 10/19/18 12:00 Temperature 98.8 F Pulse Rate 102 H Respiratory Rate 17 Blood Pressure 128/58 L Pulse Oximetry 96 Intake & Output 10/19/18 10/19/18 10/20/18 06:59 18:59 06:59 Intake Total 480 / 480 Output Total 700 / 700 Balance -220 / -220 Weight 80.9 kg Intake: Oral 480 / 480 Output: Urine 700 / 700 - Urinary Catheter Management Indwelling Urethral Catheter Cath placed during this visit: no <Slim Arrieta - Last Filed: 10/19/18 20:51> Assessment and Plan - Assessment (1) Acute kidney injury superimposed on CKD Code(s): N17.9 - Acute kidney failure, unspecified; N18.9 - Chronic kidney disease, unspecified Status: Acute Plan: SHABANA with RTA, hx of lupus Continue Aldactone, potassium replacement and NaHCO3. Fluids encouraged. With fluctuating creatinine and hx of lupus, Kidney biopsy done today Labs in AM (2) Hypertension Code(s): I10 - Essential (primary) hypertension Status: Chronic Qualifiers: Hypertension type: essential hypertension Qualified Code(s): I10 - Essential (primary) hypertension Plan: will monitor (3) Endocarditis of tricuspid valve Code(s): I36.8 - Other nonrheumatic tricuspid valve disorders Status: Acute Plan: Antibiotics completed <Cher Freeman - Last Filed: 10/18/18 15:33> - Assessment (1) Acute kidney injury superimposed on CKD Code(s): N17.9 - Acute kidney failure, unspecified; N18.9 - Chronic kidney disease, unspecified Status: Acute Plan: Patient seen and examined, agree with above. Kidney Biopsy done, Creatinine is stable. (2) Hypertension Code(s): I10 - Essential (primary) hypertension Status: Chronic Qualifiers: Hypertension type: essential hypertension Qualified Code(s): I10 - Essential (primary) hypertension (3) Endocarditis of tricuspid valve Code(s): I36.8 - Other nonrheumatic tricuspid valve disorders Status: Acute <Slim Arrieta - Last Filed: 10/19/18 20:51>
--- NOTE | 2018-10-18 16:04 | P.PNIM ---
Subjective Interval history: Patient laying down in bed. She says she has some pain near the kidney biopsy site. No other complaints today. Physical Exam Vital signs: Vital Signs 10/17/18 16:00 10/17/18 20:00 10/18/18 00:00 Temperature 98.2 F 98.2 F 98.5 F Pulse Rate 73 97 H 76 Respiratory Rate 18 19 18 Blood Pressure 123/66 126/62 104/59 L Pulse Oximetry 98 98 95 10/18/18 04:00 10/18/18 08:00 10/18/18 10:15 Temperature 98 F 98.1 F 98.6 F Pulse Rate 94 H 82 101 H Respiratory Rate 17 16 20 Blood Pressure 108/62 110/63 105/56 L Pulse Oximetry 97 97 97 10/18/18 10:36 10/18/18 10:45 10/18/18 12:00 Temperature Pulse Rate 92 H 89 81 Respiratory Rate 20 20 Blood Pressure 113/56 L 116/67 Pulse Oximetry 97 97 10/18/18 14:00 Temperature 98.5 F Pulse Rate 76 Respiratory Rate Blood Pressure 112/54 L Pulse Oximetry 94 L Intake & Output 10/17/18 10/18/18 10/18/18 18:59 06:59 18:59 Intake Total 620 / 620 Output Total 1400 / 1400 Balance -780 / -780 Weight 78.9 kg Intake: Oral 620 / 620 Output: Urine 1400 / 1400 Other: # Voids 4 Narrative: General patient in no acute distress HEENT extraocular movements are intact, clear oropharyngeal mucosa, no JVD Cardiovascular S1-S2 audible, RRR, no murmurs rubs or gallops, no abscess or fluid collection noted on the left lateral breast. Respiratory clear to auscultation bilaterally Abdomen soft, nontender, nondistended, normal bowel sounds Extremities no edema 2+ distal pulses in bilateral upper and lower extremities Neuro no neurological deficits patient moves all 4 extremities and sensation is intact bilaterally. - Urinary Catheter Management Indwelling Urethral Catheter Cath placed during this visit: yes, but has since been removed by the nurse Reason for continuing: Decision to DC catheter Removal date: 08/07/18 Removal time: 18:00 Results - Labs CBC & Chem 7: 10/18/18 14:11 10/17/18 07:15 Laboratory Results - last 24 hr 10/18/18 10/18/18 10/18/18 07:45 07:45 10:20 WBC RBC Hgb 10.6 L Hct 32.5 L MCV MCH MCHC RDW Plt Count MPV Neut % (Auto) Lymph % (Auto) Clay % (Auto) Eos % (Auto) Baso % (Auto) Neut # (Auto) Lymph # (Auto) Clay # (Auto) Eos # (Auto) Baso # (Auto) WBC Differential Differential Comment PT 10.0 INR 1.0 APTT 23.7 10/18/18 14:11 WBC 18.0 H RBC 3.49 L Hgb 10.5 L Hct 32.8 L MCV 94.0 MCH 30.1 MCHC 32.1 RDW 14.8 Plt Count 259 D MPV 6.9 L Neut % (Auto) 93.7 H Lymph % (Auto) 4.4 L Clay % (Auto) 1.7 Eos % (Auto) 0.0 Baso % (Auto) 0.2 Neut # (Auto) 16.9 H Lymph # (Auto) 0.8 L Clay # (Auto) 0.3 Eos # (Auto) 0.0 Baso # (Auto) 0.0 WBC Differential . Differential Comment Auto diff final PT INR APTT - Imaging Impressions Renal Biopsy CT 10/18/18 00:00 CONCLUSION: 1. Uncomplicated CT guided biopsy. - Procedures None Assessment and Plan - Assessment (1) Endocarditis of tricuspid valve Code(s): I36.8 - Other nonrheumatic tricuspid valve disorders Status: Acute (2) Brugada syndrome Code(s): I49.8 - Other specified cardiac arrhythmias Status: Resolved (3) Hypertension Code(s): I10 - Essential (primary) hypertension Status: Chronic (4) ICD (implantable cardioverter-defibrillator) malfunction Code(s): T82.118A - Breakdown (mechanical) of other cardiac electronic device, initial encounter Status: Acute (5) Medical non-compliance Code(s): Z91.19 - Patient's noncompliance with other medical treatment and regimen Status: Acute (6) SLE (systemic lupus erythematosus) Code(s): M32.9 - Systemic lupus erythematosus, unspecified Status: Chronic (7) Chronic pain Code(s): G89.29 - Other chronic pain Status: Chronic (8) Acute kidney injury superimposed on CKD Code(s): N17.9 - Acute kidney failure, unspecified; N18.9 - Chronic kidney disease, unspecified Status: Acute - Plan This patient is a 43-year-old female with a diagnosis of Brugada syndrome status post AICD placement who presented to the emergency department on 2017 due to generalized weakness. The patient was found to have bradycardia with a heart rate in the 30s and 40s. Patient also has a history of chronic kidney disease, gastroparesis, Crohn's disease, hypothyroidism, SLE. Leukocytosis Patient has leukocytosis with a left shift. She is afebrile overnight. There is no obvious source of infection. I will obtain a UA. She complains of a cough. We will get a portable chest x-ray. She recently had her AICD removed, however that site appears clean and no signs of infection. The patient is on steroids chronically however her WBC count was normal couple days ago. If the patient does spike a fever we will start her on empiric antibiotic. Monitor a.m. labs. 1. AICD malfunction/dislodged pacemaker lead 2. Infective endocarditis involving the tricuspid valve. 3. Brugada syndrome Patient is status post lead extraction. 2D echocardiogram shows tricuspid valve endocarditis, now status post antibiotic treatment. Prior ICD pocket infection in December 2017 and February 2018. Recently replaced by Dr. Cervantes. Per device rep she did not follow-up device check. Completed course of vancomycin, aztreonam per ID on 09/17/18. Blood cultures during this hospitalization are negative. As per documentation there is a strong suspicion that the patient may be manipulating device leads. The patient was evaluated by our horn player Dr. Cervantes who recommends a LifeVest. No beta-mark as the patient has a history of severe bradycardia. Patient is pending LifeVest insurance approval. We will discuss his case with case management today. 4. Acute kidney injury on CKD stage III Nephrology following. Patient underwent kidney biopsy today. We will continue to monitor the patient closely. Continue Aldactone, sodium bicarb. I will discuss the case with nephrology tomorrow. 4. Crohn's disease Patient can continue to follow-up outpatient for his Crohn's disease. 5. SLE On chronic steroids. Patient can continue to follow-up outpatient after discharge. Heparin for DVT prophylaxis. (3) Hypertension Qualifiers: Hypertension type: essential hypertension Qualified Code(s): I10 - Essential (primary) hypertension (6) SLE (systemic lupus erythematosus) Qualifiers: Systemic lupus erythematosus type: unspecified (7) Chronic pain Qualifiers: Chronic pain type: other chronic pain Qualified Code(s): G89.29 - Other chronic pain
--- NOTE | 2018-10-18 17:26 | XR ---
EXAM DATE: 10/18/2018 5:21 PM EST AGE/SEX: 43 years / Female INDICATIONS: Cough. CLINICAL DATA: This is the patient's subsequent encounter. Patient reports that signs and symptoms h ave been present for 3 weeks and indicates a pain score of 0/10. MEDICAL/SURGICAL HISTORY: . Lupus. Renal failure, chronic. Chron' s disease. Brugada syndrome Appendectomy. ICD/ pacemaker COMPARISON: [facility] [place] CHEST 1V SINGLE AP, 10/02/2018. . FINDINGS: A single AP view of the chest demonstrates the lungs to be symmetrically aerated without evidence of mass, infiltrate or effusion. The cardiomediastinal contours are unremarkable. Osseous structures a re intact. There is extensive overlying artifact. There is a left sided PICC line in place. This has a loop again noted in the catheter. CONCLUSION: 1. No acute cardiopulmonary disease. 2. Stable left-sided PICC line with loop in the catheter again noted. Electronically signed by: Kane Tejeda MD Board Certified Radiologist 10/18/2018 5:25 PM EST
[2018-10-18] MEDS: Melatonin 5 MG Tablet PO SCH (20:07)
[2018-10-18] MEDS: LORazepam 1 MG Tablet PO SCH (22:15)
[2018-10-19 01:10] LABS: Bacteria,Urine Rare /hpf; Bilirubin,Urine Negative (Negative); Clarity,Urine Hazy (Clear); Color,Urine Yellow (Yellw/Straw); Glucose,Urine (UA) Negative (Negative); Leukocyte Esterase,Urine Negative (Negative); Mucus,Urine Few /lpf (Occasional); Nitrite,Urine Negative (Negative); Specific Gravity,Urine 1.015 (1.002-1.035); Squamous Epithelial Cell,Urine 2 /hpf (0-5)
[2018-10-19] MEDS: Levothyroxine 112 MCG Tablet PO SCH (05:10)
[2018-10-19 06:59] LABS: Baso # (Auto) 0.1 th/mm3 (0.0-0.2); Baso % (Auto) 0.6 % (0.0-2.0); Eos # (Auto) 0.1 th/mm3 (0.0-0.4); Eos % (Auto) 0.9 % (0.0-4.0); Hematocrit 30.2 % (35.0-46.0); Hemoglobin 9.9 gm/dL (11.6-15.3); Lymph # (Auto) 2.9 th/mm3 (1.0-4.8); Mean Corpuscular HGB Conc 32.8 % (32.0-36.0); Mean Corpuscular Hemoglobin 30.7 pg (27.0-34.0); Mean Corpuscular Volume 93.6 fL (80.0-100.0); Mono # (Auto) 1.2 th/mm3 (0.0-0.9); Mono % (Auto) 7.5 % (0.0-8.0); Neut # (Auto) 11.7 th/mm3 (1.8-7.7); Platelet Count 230 th/mm3 (150-450); Red Blood Count 3.22 mil/mm3 (4.00-5.30); Red Cell Distribution Width 14.9 % (11.6-17.2)
[2018-10-19 07:26] LABS: Calcium 8.3 mg/dL (8.5-10.1); Carbon Dioxide 27.5 meq/L (21.0-32.0); Potassium 4.6 meq/L (3.5-5.1)
[2018-10-19] MEDS: predniSONE 20 MG Tablet PO SCH (08:35)
[2018-10-19] MEDS: Lisinopril 5 MG Tablet PO SCH (08:35)
[2018-10-19] MEDS: Senna/Docusate Sodium 8.6/50 MG Tablet PO SCH (08:35)
[2018-10-19] MEDS: Morphine Sulfate 15 MG SR Tablet PO SCH (08:36)
[2018-10-19] MEDS: Sodium Bicarbonate 650 MG Tablet PO SCH (08:36)
[2018-10-19] MEDS: amLODIPine 5 MG Tablet PO SCH (08:36)
[2018-10-19] MEDS: Spironolactone 25 MG Tablet PO SCH (10:06)
[2018-10-19] MEDS: Heparin Central Flush 100 UNIT/ML 5 ML Vial IV.FLUSH SCH (10:06)
--- NOTE | 2018-10-19 11:49 | P.DS ---
Date of admission: 08/03/18 03:38 Primary care physician: No Primary Care Physician Brief History from admission: 42-year-old female with past medical history of systemic lupus erythematosus, Crohn's disease, hypothyroidism, endometriosis, gastroparesis, chronic kidney disease stage III, interstitial cystitis, Brugada syndrome with ICD replaced 06/27/[address] Cervantes. 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 She states she was taking a shower this evening and felt weak and presyncopal. She was transported by [facility] with heart rate 30s to 40s. Upon arrival she had ventricular paced rhythm at a rate of 40. Her blood pressure was 78/35. Transcutaneous pacer was placed with backup rate of 60. She was started on dopamine which has been titrated up to 16 mcg/kg/min with heart rate in the 70s-80s and blood pressure 93/51. Her pacemaker was interrogated and was noted to be intermittently capturing. She does have history of pocket infection in december 2017 and 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 and then replaced in [facility] (original device placed 10/03/17). She had additional chest wall infection 02/2018 with MRSA resulting in device removal and wound vac placement. ICD was replaced 06/27/[address] Cervantes. DS: Diagnosis - Discharge Diagnosis (1) Endocarditis of tricuspid valve Status: Acute (2) Brugada syndrome Status: Resolved (3) Hypertension Status: Chronic (4) ICD (implantable cardioverter-defibrillator) malfunction Status: Acute (5) Medical non-compliance Status: Acute (6) SLE (systemic lupus erythematosus) Status: Chronic (7) Chronic pain Status: Chronic (8) Acute kidney injury superimposed on CKD Status: Acute DS: Medications - Discharge Medications Prescriptions: amlodipine [Norvasc] 2.5 mg PO DAILY #30 tab lisinopril 5 mg PO DAILY #30 tab potassium chloride 20 meq PO BID #30 tab DS: Summary Hospital Course: 42-year-old female with past medical history of systemic lupus erythematosus, Crohn's disease, hypothyroidism, endometriosis, gastroparesis, chronic kidney disease stage III, interstitial cystitis, Brugada syndrome with ICD replaced 06/27/[address] Cervantes. 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 She states she was taking a shower this evening and felt weak and presyncopal. She was transported by [facility] with heart rate 30s to 40s. Upon arrival she had ventricular paced rhythm at a rate of 40. Her blood pressure was 78/35. Transcutaneous pacer was placed with backup rate of 60. She was started on dopamine which has been titrated up to 16 mcg/kg/min with heart rate in the 70s-80s and blood pressure 93/51. Her pacemaker was interrogated and was noted to be intermittently capturing. She does have history of pocket infection in december 2017 and 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 and then replaced in [facility] (original device placed 10/03/17). She had additional chest wall infection 02/2018 with MRSA resulting in device removal and wound vac placement. ICD was replaced 06/27/[address] Cervantes. 1. AICD malfunction/dislodged pacemaker lead 2. Infective endocarditis involving the tricuspid valve. The patient was evaluated bilateral bench inspector Dr. Cervantes who recommended that the patient have the AICD removed. The patient underwent removal of the AICD and tolerated the procedure well. Patient had a long hospital course as she was waiting for her LifeVest which is now currently in place. The patient will be discharged with a LifeVest in place as per electrophysiology the patient will not have another AICD placed. The patient was also found to have tricuspid valve endocarditis. Cultures were negative. Vegetation was present on the tricuspid valve by 2D echocardiogram. The patient completed her treatment of antibiotics while in-house. The patient had a significantly elevated WBC count during the hospitalization. Her WBC count is still slightly elevated however she is on prednisone chronically which could be contributing to the leukocytosis. 3. SLE 4. Hypertension 5. Chronic kidney disease stage III The patient is on chronic steroids for SLE which can be continued. During the hospitalization the patient had fluctuating serum creatinine levels. Nephrology was consulted to evaluate the patient. Her serum creatinine did show a downtrend however given the patient's fluctuating serum creatinine levels was recommended that the patient undergo a kidney biopsy. She underwent kidney biopsy yesterday and tolerated the procedure well. She will be discharged home today. Biopsy results are pending. I recommend that she follows up outpatient with her nurse monitoring in the next couple weeks. Patient was given scripts for her blood pressure medications. Can follow-up with her primary care doctor in the next 1 week and I recommend that a renal panel as well as her blood pressure be checked and her meds can be adjusted as needed. 6. Crohn's disease Patient follows up at [facility] in [place]. She can continue to follow-up outpatient. Continue p.o. steroids. Patient will be discharged home today with home health. I also recommended the patient's primary care doctor referred the patient to a psychiatrist so she can have regular follow-up outpatient. It is possible the patient may have factitious disorder given her history. - Time Spent with Patient Total time spent providing and/or coordinating discharge services: Greater than 30 minutes - Quality: VTE Deep Vein Thrombosis/Pulmonary Embolism Present on Admission: No Exam Vital signs: Vital Signs 10/18/18 12:00 10/18/18 14:00 10/18/18 16:00 Temperature 98.5 F Pulse Rate 81 76 87 Respiratory Rate Blood Pressure 112/54 L Pulse Oximetry 94 L 10/18/18 16:06 10/18/18 20:00 10/19/18 00:00 Temperature 97.6 F 98.2 F 98.4 F Pulse Rate 111 H 100 H 71 Respiratory Rate 18 18 19 Blood Pressure 106/50 L 104/59 L 103/59 L Pulse Oximetry 95 98 99 10/19/18 04:00 10/19/18 08:00 Temperature 98.5 F 98.4 F Pulse Rate 85 75 Respiratory Rate 18 17 Blood Pressure 100/59 L 115/74 Pulse Oximetry 96 100 Intake & Output 10/18/18 10/19/18 10/19/18 18:59 06:59 18:59 Intake Total 240 / 240 480 / 480 Output Total 800 / 800 700 / 700 Balance -560 / -560 -220 / -220 Weight 80.9 kg Intake: Oral 240 / 240 480 / 480 Output: Urine 800 / 800 700 / 700 Other: Date of Last Bowel Movement 10/18/18 # Bowel Movements 1 Narrative: General patient in no acute distress HEENT extraocular movements are intact, clear oropharyngeal mucosa, no JVD Cardiovascular S1-S2 audible, RRR, no murmurs rubs or gallops, no abscess or fluid collection noted on the left lateral breast. Respiratory clear to auscultation bilaterally Abdomen soft, nontender, nondistended, normal bowel sounds Extremities no edema 2+ distal pulses in bilateral upper and lower extremities Neuro no neurological deficits patient moves all 4 extremities and sensation is intact bilaterally. Results Procedures completed during hospitalization: AICD removed Kidney biopsy Labs on day of discharge: Labs from last 24 hours 10/19/18 10/19/18 10/18/18 06:00 06:00 Unknown WBC 16.0 H RBC 3.22 L Hgb 9.9 L Hct 30.2 L MCV 93.6 MCH 30.7 MCHC 32.8 RDW 14.9 Plt Count 230 MPV 7.0 Neut % (Auto) 73.0 H Lymph % (Auto) 18.0 Callahan % (Auto) 7.5 Eos % (Auto) 0.9 Baso % (Auto) 0.6 Neut # (Auto) 11.7 H Lymph # (Auto) 2.9 Callahan # (Auto) 1.2 H Eos # (Auto) 0.1 Baso # (Auto) 0.1 WBC Differential . Differential Comment Auto diff final Sodium 138 Potassium 4.6 Chloride 105 Carbon Dioxide 27.5 Anion Gap 6 BUN 34 H Creatinine 1.36 H Estimated GFR 43 L Random Glucose 86 Calcium 8.3 L Urine Color Yellow Urine Clarity Hazy H Urine pH 5.0 Ur Specific [place] 1.015 Urine Protein Negative Urine Glucose (UA) Negative Urine Ketones Negative Urine Occult Blood Moderate H Urine Nitrate Negative Urine Bilirubin Negative Urine Urobilinogen Less than 2 Ur Leukocyte Esterase Negative Urine RBC 20 H Urine WBC 3 Ur Squamous Epith Cells 2 Urine Bacteria Rare H Urine Mucus Few H Micro UA Comment Culture not ind Ur Microscopic Review Not Reportable Urine Culture Comments Culture not ind 10/18/18 14:11 WBC 18.0 H RBC 3.49 L Hgb 10.5 L Hct 32.8 L MCV 94.0 MCH 30.1 MCHC 32.1 RDW 14.8 Plt Count 259 D MPV 6.9 L Neut % (Auto) 93.7 H Lymph % (Auto) 4.4 L Callahan % (Auto) 1.7 Eos % (Auto) 0.0 Baso % (Auto) 0.2 Neut # (Auto) 16.9 H Lymph # (Auto) 0.8 L Callahan # (Auto) 0.3 Eos # (Auto) 0.0 Baso # (Auto) 0.0 WBC Differential . Differential Comment Auto diff final Sodium Potassium Chloride Carbon Dioxide Anion Gap BUN Creatinine Estimated GFR Random Glucose Calcium Urine Color Urine Clarity Urine pH Ur Specific [place] Urine Protein Urine Glucose (UA) Urine Ketones Urine Occult Blood Urine Nitrate Urine Bilirubin Urine Urobilinogen Ur Leukocyte Esterase Urine RBC Urine WBC Ur Squamous Epith Cells Urine Bacteria Urine Mucus Micro UA Comment Ur Microscopic Review Urine Culture Comments - Impressions ITS Impressions Central Venous Line 08/17/18 15:16 CONCLUSION: 1. Uncomplicated midline placement. PICC Line Insertion 08/22/18 10:03 CONCLUSION: 1. Uncomplicated central venous Power PICC line placement. 2. The PICC line can be used immediately. Chest X-Ray 10/18/18 00:00 CONCLUSION: 1. No acute cardiopulmonary disease. 2. Stable left-sided PICC line with loop in the catheter again noted. Renal Biopsy CT 10/18/18 00:00 CONCLUSION: 1. Uncomplicated CT guided biopsy. Discharge Plan - Discharge Disposition Patient Disposition: /Home Health Service - Discharge Condition Condition: Stable - Discharge Order Discharge Orders: Discharge Order (Routine); Ordered 10/19/18 Ordered By: Shanna Bustillo Nephrology Clear for Discharge (Routine); Ordered 10/18/18 Ordered By: Slim Arrieta - Physicians Team Primary Care Provider: Primary Care Physici,No Attending Provider: Shanna Bustillo Other Providers: Tamara Cervantes MD ; Hernandez Auguste MD ; Shawna Levy MD ; Khushi Andrade MD ; Domenica Wall MD ; Mumtaz Muñoz, PhD ; Bill Morillo MD
--- NOTE | 2018-10-19 20:53 | P.PNNP ---
Subjective Interval history: Patient seen in the afternoon, no SOB, has chronic kidney disease. Physical Exam Vital signs: Vital Signs 10/19/18 00:00 10/19/18 04:00 10/19/18 08:00 Temperature 98.4 F 98.5 F 98.4 F Pulse Rate 71 85 75 Respiratory Rate 19 18 17 Blood Pressure 103/59 L 100/59 L 115/74 Pulse Oximetry 99 96 100 10/19/18 12:00 Temperature 98.8 F Pulse Rate 102 H Respiratory Rate 17 Blood Pressure 128/58 L Pulse Oximetry 96 Intake & Output 10/19/18 10/19/18 10/20/18 06:59 18:59 06:59 Intake Total 480 / 480 Output Total 700 / 700 Balance -220 / -220 Weight 80.9 kg Intake: Oral 480 / 480 Output: Urine 700 / 700 Narrative: General patient in no acute distress HEENT extraocular movements are intact, clear oropharyngeal mucosa, no JVD Cardiovascular S1-S2 audible, RRR, no murmurs rubs or gallops, no abscess or fluid collection noted on the left lateral breast. Respiratory clear to auscultation bilaterally Abdomen soft, nontender, nondistended, normal bowel sounds Extremities no edema 2+ distal pulses in bilateral upper and lower extremities Neuro no neurological deficits patient moves all 4 extremities and sensation is intact bilaterally. - Urinary Catheter Management Indwelling Urethral Catheter Cath placed during this visit: yes, but has since been removed by the nurse Reason for continuing: Decision to DC catheter Removal date: 08/07/18 Removal time: 18:00 Assessment and Plan - Assessment (1) Acute kidney injury superimposed on CKD Code(s): N17.9 - Acute kidney failure, unspecified; N18.9 - Chronic kidney disease, unspecified Status: Acute Plan: Kidney Biopsy done, Creatinine is stable. I was called later with the result, she has ATN and chronic Hypertensive changes. No lupus and immunflorance was negative. (2) Hypertension Code(s): I10 - Essential (primary) hypertension Status: Chronic Qualifiers: Hypertension type: essential hypertension Qualified Code(s): I10 - Essential (primary) hypertension Plan: will monitor (3) Endocarditis of tricuspid valve Code(s): I36.8 - Other nonrheumatic tricuspid valve disorders Status: Acute Plan: Antibiotics completed - Plan l
== END 2018-10-19 16:47 | disposition home health service (06) ==
LOC: NEPE 23:13 → NEDA 08-03 03:38 → HIMC 08-03 05:01 → N04 08-09 18:32
PROVIDERS: ADMIT Hospitalist; ATTEND Hospitalist
PROC: LEADREV (ICD-10-PCS; 2018-08-29 16:00)
PROC: [UNRECOGNIZED PROCEDURE] (2018-10-11 12:30)

== ENCOUNTER 2018-10-27 23:28 | Inpatient (IN) ==
[2018-10-28 01:12] LABS: Baso % (Auto) 0.5 % (0.0-2.0); Eos # (Auto) 0.3 th/mm3 (0.0-0.4); Hematocrit 31.1 % (35.0-46.0); Hemoglobin 10.6 gm/dL (11.6-15.3); Lymph # (Auto) 1.6 th/mm3 (1.0-4.8); Lymph % (Auto) 19.3 % (9.0-44.0); Mean Corpuscular Hemoglobin 30.7 pg (27.0-34.0); Mean Corpuscular Volume 90.2 fL (80.0-100.0); Mean Platelet Volume 7.2 fL (7.0-11.0); Mono # (Auto) 0.9 th/mm3 (0.0-0.9); Mono % (Auto) 10.2 % (0.0-8.0); Neut # (Auto) 5.6 th/mm3 (1.8-7.7); Platelet Count 167 th/mm3 (150-450); Red Blood Count 3.45 mil/mm3 (4.00-5.30); Red Cell Distribution Width 13.9 % (11.6-17.2); White Blood Count 8.3 th/mm3 (4.0-11.0)
[2018-10-28 01:16] LABS: Amphetamine Screen,Urine Neg (Neg); Barbiturate Screen,Urine Neg (Neg); Cannabinoid Screen,Urine Neg (Neg); Cocaine Screen,Urine Neg (Neg); Opiate Screen,Urine Pos (Neg)
[2018-10-28 01:24] LABS: Alanine Aminotransferase 17 U/L (10-53); Albumin 3.5 g/dL (3.4-5.0); Anion Gap 5 meq/L (5-15); Aspartate Aminotransferase 15 U/L (15-37); Blood Urea Nitrogen 12 mg/dL (7-18); Calcium 8.3 mg/dL (8.5-10.1); Carbon Dioxide 28.6 meq/L (21.0-32.0); Chloride 106 meq/L (98-107); Glomerular Filtration Rate 47 mL/min (>89); Glucose,Random 95 mg/dL (74-106); Magnesium 2.2 mg/dL (1.5-2.5); Potassium 3.6 meq/L (3.5-5.1); Sodium 140 meq/L (136-145)
[2018-10-28 01:33] LABS: Acetaminophen 9.1 mcg/mL (10.0-30.0); Alkaline Phosphatase 50 U/L (45-117)
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
--- NOTE | 2018-10-28 11:57 | P.HPFP ---
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 (6) SLE (systemic lupus erythematosus) Qualifiers: Systemic lupus erythematosus type: unspecified <Juan Pablo Kim - Last Filed: 10/28/18 16:01> (4) Hypertension Qualifiers: Hypertension type: unspecified Qualified Code(s): I10 - Essential (primary) hypertension (6) SLE (systemic lupus erythematosus) Qualifiers: Systemic lupus erythematosus type: unspecified <Estefany ByersTom O - Last Filed: 10/28/18 17:51> (4) Hypertension Qualifiers: Hypertension type: unspecified Qualified Code(s): I10 - Essential (primary) hypertension (6) SLE (systemic lupus erythematosus) Qualifiers: Systemic lupus erythematosus type: unspecified <Juan Pablo Kim - Last Filed: 10/28/18 16:01> (4) Hypertension Qualifiers: Hypertension type: unspecified Qualified Code(s): I10 - Essential (primary) hypertension (6) SLE (systemic lupus erythematosus) Qualifiers: Systemic lupus erythematosus type: unspecified
[2018-10-28] MEDS ORDERED: Bisacodyl 10 MG Supp RECTAL PRN (12:26)
[2018-10-28] MEDS ORDERED: Acetaminophen 325 MG Tablet PO PRN (12:26)
[2018-10-28] MEDS: Magnesium Oxide 400 MG Tablet PO SCH (14:12)
[2018-10-28] MEDS: Morphine Sulfate 15 MG IR Tablet PO PRN ×2 (16:00→23:45)
[2018-10-28] MEDS: Spironolactone 25 MG Tablet PO SCH (20:46)
[2018-10-28] MEDS ORDERED: Spironolactone 25 MG Tablet PO SCH (21:00)
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
--- NOTE | 2018-10-29 01:47 | ECG ---
Date Performed: 10/28/2018 Time Performed: 02:32:00 PTAGE: 43 years EKG: Sinus rhythm NORMAL ECG PREVIOUS TRACING : 10/12/2018 15.35 Since the previous tracing, no significant change noted DOCTOR: Sharath English Interpretating Date/Time 10/29/2018 01:45:22
[2018-10-29 05:44] LABS: Calcium 8.4 mg/dL (8.5-10.1); Carbon Dioxide 26.6 meq/L (21.0-32.0); Potassium 4.1 meq/L (3.5-5.1)
[2018-10-29] MEDS ORDERED: Levothyroxine 112 MCG Tablet PO SCH (06:00)
[2018-10-29] MEDS: Spironolactone 25 MG Tablet PO SCH (08:09)
[2018-10-29] MEDS: Morphine Sulfate 15 MG IR Tablet PO PRN ×2 (08:10→16:20)
[2018-10-29] MEDS: Magnesium Oxide 400 MG Tablet PO SCH (08:10)
[2018-10-29] MEDS ORDERED: predniSONE 20 MG Tablet PO SCH (09:00)
[2018-10-29] MEDS ORDERED: Lisinopril 5 MG Tablet PO SCH (09:00)
[2018-10-29] MEDS ORDERED: Spironolactone 25 MG Tablet PO SCH (09:00)
[2018-10-29] MEDS ORDERED: amLODIPine 5 MG Tablet PO SCH (09:00)
[2018-10-29 09:28] VITALS: RESP 17
--- NOTE | 2018-10-29 11:55 | P.PNCA ---
Subjective Interval history: Feeling better No complaints Medications and Allergies Active Medications: Active Medications Acetaminophen (Tylenol) 650 mg PO Q4H PRN PRN Reason: Temp > 100.4 Al Hydroxide/Mg Hydroxide (Milk Of Magnesia Liq) 30 ml PO Q12H PRN PRN Reason: Mild Constipation Amlodipine Besylate (Norvasc) 2.5 mg PO DAILY [facility] Last Admin: 10/29/18 08:10 Dose: 2.5 mg Bisacodyl (Dulcolax Supp) 10 mg RECTAL DAILY PRN PRN Reason: SEVERE CONSITIPATION Diazepam (Valium) 10 mg PO Q8HR PRN PRN Reason: Acute Pain Last Admin: 10/29/18 11:10 Dose: 10 mg Lactulose (Lactulose Liq) 30 ml PO DAILY PRN PRN Reason: SEVERE CONSITIPATION Levothyroxine Sodium (Synthroid) 112 mcg PO DAILY@0600 [facility] Last Admin: 10/29/18 06:32 Dose: 112 mcg Lisinopril (Prinivil) 5 mg PO DAILY [facility] Last Admin: 10/29/18 08:09 Dose: 5 mg Magnesium Oxide (Mag-Ox) 400 mg PO DAILY [facility] Last Admin: 10/29/18 08:10 Dose: 400 mg Miscellaneous (Pill Splitter) 1 each OTHER UNSCH PRN PRN Reason: SEE LABEL COMMENTS Morphine Sulfate (Msir) 15 mg PO Q8HR PRN PRN Reason: Acute Pain Last Admin: 10/29/18 08:10 Dose: 15 mg Ondansetron HCl (Zofran Inj) 4 mg IV.PUSH Q6H PRN PRN Reason: NAUSEA OR VOMITING Pantoprazole Sodium (Protonix) 40 mg PO DAILY [facility] Last Admin: 10/29/18 08:10 Dose: 40 mg Potassium Chloride (K-Dur) 20 meq PO BID [facility] Last Admin: 10/29/18 08:10 Dose: 20 meq Prednisone (Deltasone) 30 mg PO DAILY [facility] Last Admin: 10/29/18 08:10 Dose: 30 mg Sennosides (Senokot) 17.2 mg PO Q12H PRN PRN Reason: Moderate Constipation Sodium Chloride (Ns Flush) 2 ml IV.FLUSH BID [facility] Last Admin: 10/29/18 08:20 Dose: 2 ml Sodium Chloride (Ns Flush) 2 ml IV.FLUSH PRN PRN PRN Reason: FLUSH AFTER USING IV ACCESS Spironolactone (Aldactone) 12.5 mg PO BID [facility] Last Admin: 10/29/18 08:09 Dose: 12.5 mg Allergies Allergy/AdvReac Type Severity Reaction Status Date / Time cephalexin Allergy Severe RASH,SWELLI Verified 07/13/18 17:57 NG Fish Containing Products Allergy Severe SWELLING Verified 07/13/18 17:57 IN THROAT, SOB ketorolac Allergy Severe RASH Verified 07/13/18 17:57 penicillin G Allergy Severe RASH,SWELLI Verified 07/13/18 17:57 NG prochlorperazine Allergy Mild DYSTONIC Verified 07/13/18 17:57 REACTION promethazine Allergy Mild DYSTONIC Verified 07/13/18 17:57 REACTION Home Medications Medication Instructions Recorded Confirmed Type levothyroxine [Synthroid] 112 mcg PO DAILY 05/08/18 10/28/18 History magnesium 100 mg PO QID 05/08/18 10/28/18 History pantoprazole [Protonix] 40 mg PO DAILY 05/08/18 10/28/18 History potassium phosphate, monobasic 1,000 mg PO TID 05/08/18 10/28/18 History [K-Phos Original] prednisone 30 mg PO DAILY 05/08/18 10/28/18 History spironolactone 25 mg PO DAILY 05/08/18 10/28/18 History hydroxyzine HCl 50 mg PO HS PRN 10/28/18 10/28/18 History lorazepam [Ativan] 1 mg PO HS 10/28/18 10/28/18 History melatonin 5 mg PO HS PRN 10/28/18 10/28/18 History Physical Exam Vital signs: Vital Signs 10/28/18 14:00 10/28/18 17:32 10/28/18 17:45 Temperature Pulse Rate 88 70 60 Respiratory Rate 16 16 22 Blood Pressure 123/71 128/63 120/62 Pulse Oximetry 98 97 10/28/18 17:50 10/28/18 20:00 10/29/18 00:00 Temperature 100.1 F H 99.2 F Pulse Rate 80 111 H 85 Respiratory Rate 15 17 Blood Pressure 127/76 108/66 Pulse Oximetry 96 98 10/29/18 00:21 10/29/18 03:40 10/29/18 04:00 Temperature 98.6 F 99.1 F Pulse Rate 80 82 67 Respiratory Rate 16 16 Blood Pressure 113/53 L 108/66 Pulse Oximetry 98 98 10/29/18 07:37 10/29/18 08:04 10/29/18 09:00 Temperature 98 F Pulse Rate 81 106 H 64 Respiratory Rate 17 Blood Pressure 104/66 Pulse Oximetry 94 L Intake & Output 10/28/18 10/29/18 10/29/18 18:59 06:59 18:59 Intake Total 360 / 360 Balance 360 / 360 Weight 80.286 kg 77.5 kg Intake: Oral 360 / 360 Other: # Voids 4 Date of Last Bowel Movement 10/27/18 Weight On Admission 80.286 kg Narrative: GENERAL: Well-nourished, well-developed patient. No acute distress with foam plugs in ears. SKIN: Warm and dry. No rash. Patient has healing area of inflammation and swelling lateral to left pectoralis under previous AICD placement, mostly in the axilla per EYES: No scleral icterus. No injection or drainage. PERRLA. EOMI. HENT: Normocephalic. Atraumatic. MMM. Enlarged right tonsil without erythema or exudate. NECK: Supple, trachea midline. No JVD or lymphadenopathy. CARDIOVASCULAR: Regular rate and rhythm without obvious murmurs, gallops, or rubs. Surgical scar over right anterior pectoralis, overlying Steri-Strips on left anterior pectoralis. RESPIRATORY: Breath sounds equal bilaterally. No accessory muscle use. CTAB. GASTROINTESTINAL: Abdomen soft, non-tender, nondistended. BS WNL. MUSCULOSKELETAL: No cyanosis or edema. Strength grossly WNL. BACK: Nontender without obvious deformity. No CVA tenderness. NEURO/PSYCH: Afocal. Awake, alert, and oriented x3. No SI or HI Results 10/28/18 00:39 10/29/18 04:23 Cardiac Enzymes 10/28/18 Range/Units 00:39 AST 15 (15-37) U/L CBC 10/28/18 Range/Units 00:39 WBC 8.3 (4.0-11.0) th/mm3 RBC 3.45 L (4.00-5.30) mil/mm3 Hgb 10.6 L (11.6-15.3) gm/dL Hct 31.1 L (35.0-46.0) % Plt Count 167 (150-450) th/mm3 Neut # (Auto) 5.6 (1.8-7.7) th/mm3 Lymph # (Auto) 1.6 (1.0-4.8) th/mm3 Faulkner # (Auto) 0.9 (0.0-0.9) th/mm3 Eos # (Auto) 0.3 (0.0-0.4) th/mm3 Baso # (Auto) 0.0 (0.0-0.2) th/mm3 Comprehensive Metabolic Panel 10/28/18 10/29/18 Range/Units 00:39 04:23 Sodium 140 140 (136-145) meq/L Potassium 3.6 4.1 (3.5-5.1) meq/L Chloride 106 107 (98-107) meq/L Carbon Dioxide 28.6 26.6 (21.0-32.0) meq/L BUN 12 13 (7-18) mg/dL Creatinine 1.24 H 1.22 H (0.50-1.00) mg/dL Calcium 8.3 L 8.4 L (8.5-10.1) mg/dL AST 15 (15-37) U/L ALT 17 (10-53) U/L Alkaline Phosphatase 50 (45-117) U/L Total Protein 7.0 (6.4-8.2) g/dL Albumin 3.5 (3.4-5.0) g/dL Intake and Output 10/28/18 10/29/18 10/29/18 22:59 06:59 14:59 Intake Total 360 / 360 Balance 360 / 360 Intake: Oral 360 / 360 Other: # Voids 4 Date of Last Bowel Movement 10/27/18 Weight 80.286 kg 77.5 kg Weight On Admission 80.286 kg Assessment and Plan - Assessment (1) Chronic pain Code(s): G89.29 - Other chronic pain Status: Chronic (2) Medical non-compliance Code(s): Z91.19 - Patient's noncompliance with other medical treatment and regimen Status: Acute (3) Adjustment disorder with mixed anxiety and depressed mood Code(s): F43.23 - Adjustment disorder with mixed anxiety and depressed mood Status: Acute (4) Depression Code(s): F32.9 - Major depressive disorder, single episode, unspecified Status : Acute (5) Anxiety Code(s): F41.9 - Anxiety disorder, unspecified Status: Acute (6) Factitious disorder Code(s): F68.10 - Factitious disorder imposed on self, unspecified Status: Suspected (7) Opiate abuse, episodic Code(s): F11.10 - Opioid abuse, uncomplicated Status: Suspected (8) Psychiatric disorder Code(s): F99 - Mental disorder, not otherwise specified Status: Acute - Plan 1. Suicidal ideation. Per Psych 2. Munchausen factitious disorder. Per Psych 3. Long QT syndrome. ICD removed due to Twiddler syndrome, has disconnected multiple in the past Has a Lifevest, awaiting the battery 4. Twiddler's syndrome. 5. Anxiety/depression. RECOMMENDATIONS: 1. Ms. Hernandez presented with what sounds like suicidal ideation and has been evaluated by psychiatry with the recommendation of inpatient psychiatry. 2. From a cardiology standpoint, she will need her LifeVest or needs to be on telemetry. Ultimately, I would prefer if she had her LifeVest and could go inpatient psychiatry. 3. I spoke with the primary care team, and we are attempting to get the battery from her mother's house for her LifeVest. If unable to do this, then we will need to discuss with Jewel about a replacement battery. 4. Once battery is in place and LifeVest is on, she should wear it 24 hours a day. There are no further cardiovascular issues at this time. 5. No further cardiovascular recommends, will see PRN (1) Chronic pain Qualifiers: Chronic pain type: other chronic pain Qualified Code(s): G89.29 - Other chronic pain (4) Depression Qualifiers: Depression Type: unspecified Qualified Code(s): F32.9 - Major depressive disorder, single episode, unspecified
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
--- NOTE | 2018-10-29 15:29 | P.PNPSY ---
Subjective Remarks: Patient is seen for follow-up, chart reviewed. Discussion with nursing staff reported that patient denying any SI. In reviewing chart and recent evaluation by Dr. Hercules there was significant concern of patient safety as per Adele information obtained by patient's mother which patient was then retained for further inpatient psychiatric evaluation and management the patient would remain under Mena act while on the medical floor. Psychiatry was reconsulted for recommendations of medication management versus transfer to psychiatry inpatient unit. Patient was found lying in hospital bed noted B, cooperative, with sitter at bedside. Patient mentions recalling recent discussion with her mother prior to her admission to the hospital stating that her mother may have overheard her talking to her net c developer about allowing her son to remain under permanent care by her mother if something were to happen to her, referring to her . She states that she was simply having this conversation due to her recent medical admission which she had required extended medical stay due to medical complications and was concerned of her son's future. She states that she had no intention of wanting to end her life and that she wants to continue living for her son. She denies having had said that he takes messages is referred to the initial consult note of her wanted to see her son for the very last time. She states that she does not have a cell phone and that the only cell phone is aware that her son has. She reports having had chronic sleep difficulties, but no changes in appetite energy concentration. She states she feels sad now because she does not want to be in hospital wants to see her son. She reports having ongoing anxiety which she is managed by her primary care doctor with Valium but also has other medical indications to continue on this medication secondary to lupus symptoms. Patient states that she was being referred to a psychiatrist through her PCP but has not yet been connected to one. Discussion of starting patient on paroxetine to address recent depressive symptoms as well as anxiety symptoms were reviewed and agreed with starting this medications. Patient continues to deny any recent SI but due to concerns from collateral information as previously noted warrant continued inpatient monitoring for safety. Patient currently does not have LifeVest in its entirety and states that parts of this vest is at home where she is waiting for her mother to bring. Review of Systems All other systems reviewed negative except as stated in HPI Mental Status Examination Appearance: Appropriate Consciousness: Alert Orientation: x4 Motor Activity: Normal gait Speech: Unremarkable Language: Adequate Fund of Knowledge: Adequate Attention and Concentration: Adequate Memory: Unremarkable Mood: Sad, Other ("Sad that I am here in the hospital and cannot see my son") Affect: Other (Limited range of affect) Thought Process & Associations: Intact Thought Content: Appropriate Hallucination Type: None Delusion Type: None Suicidal Ideation: No (The patient currently denies) Suicidal Plan: No Suicidal Intention: No Homicidal Ideation: No Homicidal Plan: No Homicidal Intention: No Insight: Poor Judgment: Poor Assessment and Plan - Assessment (1) Depression Code(s): F32.9 - Major depressive disorder, single episode, unspecified Status : Acute (2) Anxiety Code(s): F41.9 - Anxiety disorder, unspecified Status: Acute (3) Factitious disorder Code(s): F68.10 - Factitious disorder imposed on self, unspecified Status: Suspected (4) Benzodiazepine abuse Code(s): F13.10 - Sedative, hypnotic or anxiolytic abuse, uncomplicated Status : Suspected (5) Opiate abuse, episodic Code(s): F11.10 - Opioid abuse, uncomplicated Status: Suspected (6) Symptomatic sinus bradycardia Code(s): R00.1 - Bradycardia, unspecified Status: Acute - Plan Plan: Patient continues to deny any recent suicide ideation and continues to deny any prior suicide ideations that led to her Mena act. Collateral information obtained by patient's mother expressed concern for manipulation in regards to drug-seeking behavior in the past and continues to be concern for her active substance misuse and plans on filing and [place] act to have patient involuntary engage in rehabilitation program for substance use. We will start patient on paroxetine 10 mg p.o. daily for depression and anxiety with a max dose of 40 mg in the context of renal impairment. We will continue rest of medications continue recommendations as per primary medical team. Patient will require LifeVest to be transferred to the inpatient psychiatry unit and need to remain on telemetry for safety and cardiac monitoring. We will continue to follow patient on the inpatient medical floor with possible transfer to the inpatient psychiatry unit once patient is able to have a LifeVest to be functional prior to transfer. In the event the patient cannot have LifeVest, we will continue to follow patient and manage on the medical inpatient unit. Continue 1:1 observation for safety. Mena act remains in place. Justification for Continued Inpatient Stay: At risk of further decompensation at lower level care. (1) Depression Qualifiers: Depression Type: unspecified Qualified Code(s): F32.9 - Major depressive disorder, single episode, unspecified
[2018-10-29 16:22] VITALS: BP 107/58; PULSE 51; TEMP 98.1; O2SAT 96
--- NOTE | 2018-10-29 16:31 | P.PNADD ---
Addendum to Inpatient Note Reason for Addendum: Additional Documentation Additional information: This addendum is to document that I personally contacted patient's mother Ann-Marie Riojas and patient's battery for LifeVest was delivered into my hands and brought to her room. Patient now has LifeVest on and personally witnessed her check it to make sure the battery/vest is operational and functional. Per psychiatry patient may be transferred to psychiatric unit once patient has LifeVest. I have contacted psychiatry department and spoke with charge nurse about transfer. Patient will be transferred to the inpatient psychiatric unit this afternoon. She is medically cleared to be discharged to the unit. Medical team available for consultation and happy to assist if required.
== END 2018-10-29 17:30 ==
LOC: NEPC 23:28 → NEDA 23:28 → N06 10-28 15:40
PROVIDERS: ADMIT Family Medicine; ATTEND Family Medicine

== ENCOUNTER 2018-10-29 18:10 | Inpatient (IN) ==
[2018-10-29] MEDS ORDERED: Acetaminophen 325 MG Tablet PO PRN ×2 (20:10→20:45)
[2018-10-29] MEDS ORDERED: Bisacodyl 10 MG Supp RECTAL PRN (20:13)
[2018-10-30] MEDS: Morphine Sulfate 15 MG IR Tablet PO PRN ×3 (03:00→20:07)
[2018-10-30] MEDS: Levothyroxine 112 MCG Tablet PO SCH (06:04)
[2018-10-30] MEDS: predniSONE 10 MG Tablet PO SCH (08:23)
[2018-10-30] MEDS: Spironolactone 25 MG Tablet PO SCH (08:24)
[2018-10-30] MEDS: Magnesium Oxide 400 MG Tablet PO SCH (08:25)
[2018-10-30] MEDS: Lisinopril 5 MG Tablet PO SCH (09:00)
[2018-10-30] MEDS ORDERED: amLODIPine 5 MG Tablet PO SCH (09:00)
--- NOTE | 2018-10-30 12:50 | P.HPPSY ---
Provisional Diagnosis Admission Date: October 29, 2018 18:10 Adjustment disorder: With depressed mood Competence Certification of Person's Competence To Provide Express and Informed Consent I have personally examined Brisa Hernandez, a person being served at [facility] [[email or web address] on, October 30, 2018 1218. Express and informed consent means consent voluntarily given in writing, by a competent person, after sufficient explanation and disclosure of the subject matter involved to enable the person to make a knowing and willful decision without any element of force, fraud, deceit, duress, or other form of constraint or coercion. This person is 18 years of age or older, is not now known to be incompetent to consent to treatment with a guardian advocate, and does not have a health care surrogate or proxy currently making medical treatment decisions. I have found this person to be one of the following: [] Competent to provide express and informed consent, as defined above, for voluntary admission to this facility and is competent to provide express and informed consent for treatment. He/she has the consistent capacity to make well reasoned, willful, and knowing decisions concerning his or her medical or mental health treatment. The person fully and consistently understands the purpose of the admission for examination/placement and is fully capable of personally exercising all rights assured [place] [] Incompetent to provide express and informed consent to voluntary admission, and this is incompetent to provide express and informed consent to treatment. The person must be transferred to involuntary status and a petition for a guardian advocate filed with the Circuit Court. [] Refusing to provide express and informed consent to voluntary admission but is competent to provide express and informed consent for treatment. The person must be discharged or transferred to involuntary status. Form shall be completed within 24 hours of a person's arrival at the receiving facility and filed in the clinical record of each person: 1. Admitted on a voluntary basis 2. Permitted to provide express and informed consent to his/her own treatment 3. Allowed to transfer from involuntary to voluntary status 4. Prior to permitting a person to consent to his or her own treatment after having been previously found incompetent to consent to treatment. 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 Discussion with the psychiatrist who saw the patient in the ED reveals that the mother plans to have the patient admitted on the act. The patient spent 3 months on the medical service for treatment of Bragada syndrome. Patient is on a LifeVest and was initially admitted to medicine, but transferred to psychiatry for treatment of alleged statements conveyed by her mother that the patient was suicidal. There is also involvement by [facility] so that the patient's mother does not want the patient to be able to see her 11-year old son who claims that the patient has threatened suicide. The patient denies any suicidal thoughts and signs of blame for the Mena act to pulse allegations made by the mother. The patient's heart condition was thought due to the patient's use of lopirimide. The patient apparently had boxes and boxes of this antidiarrheal scattered about the house and was thought to be using this in place of opiates. Patient apparently had been on morphine and on benzodiazepine but during her 3 months was withdrawn from both. Patient is seeking both drugs at this time, stating that she would go into withdrawal without them. The medicine service was said to have felt the patient was purposely sabotaging her treatment in order to be hospitalized. 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 The patient is a totally unreliable informant so that her history at this point appears to be useless and deciding what is needed beyond the necessary treatment of her substance abuse problems. Patient will be observed for signs of withdrawal and for signs of suicidality and discharged with the recommendations that the mother proceed with her act to have the patient appropriately placed in a drugs and alcohol program. - Inpatient Certification I certify that the inpatient services were ordered in accordance with Medicare regulations governing the order. This includes certification that hospital inpatient services are reasonable and necessary and in the case of services not specified as inpatient-only under 42 CFR 419.22(n), that they are appropriately provided as inpatient services in accordance to with the 2-midnight benchmark under 43 CFR 412.3(e) I certify that inpatient psychiatric hospital services are medically necessary. Evaluation and treatment and/or diagnostic testing are expected to improve the patient's condition. The patient needs on a daily basis, active treatment furnished directly by or requiring the supervision of inpatient psychiatric facility personnel. Estimated Total Length of Stay (Days): 2 Plans for Post Hospital Care: Home (Discussion with the admitting psychiatrist notes the patient's mother plans on tomorrow) Review of Systems Patient's review of systems is too unreliable to be of value in conducting treatment. Medical workup by a hospitalist will be consulted. [facility] - History History 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 (See old records. Patient is to unreliable to give a credible history) - Medical History Medical History: Medical History (Last Reviewed 10/28/18 @ 17:55 by Renee Hurt RN) Anxiety Brugada syndrome CKD (chronic kidney disease) stage 3, GFR 30-59 ml/min Crohn's disease Endometriosis Esophagitis Gastroparesis Gastroparesis History of MRSA infection Onset Date: ~10/06/18 Hypokalemia Hypothyroidism Interstitial cystitis Lupus PTSD (post-traumatic stress disorder) - Surgical History Surgical History: Surgical History (Last Reviewed 10/28/18 @ 17:55 by Renee Hurt RN) AICD (automatic cardioverter/defibrillator) present History of appendectomy History of laparoscopy Hx of colonoscopy Hx of cystoscopy Hx of esophagogastroduodenoscopy - Family History Family History: Family History (Last Reviewed 08/18/18 @ 08:10 by Vicenta Bravo) Mother Prinzmetal angina Breast cancer - Tobacco History Second Hand Smoke Exposure: No Tobacco Use In Past 30 Days: No Smoking Status: Former smoker Tobacco Type: Cigarettes - Alcohol History How Often Do You Have a Drink Containing Alcohol: Never - Substance Use History Substance History: Active Abuse - Travel History History of Recent Travel: No Quality Measures - Psychiatric History Psychological trauma history: Unknown Medications and Allergies Active Medications: Active Medications Acetaminophen (Tylenol) 650 mg PO Q6HR PRN PRN Reason: TEMP GREATER THAN 100.4 Al Hydroxide/Mg Hydroxide (Milk Of Magnesia Liq) 30 ml PO Q12H PRN PRN Reason: FOR CONSTIPATION Amlodipine Besylate (Norvasc) 2.5 mg PO DAILY SHUKRI Last Admin: 10/30/18 09:00 Dose: 2.5 mg Bisacodyl (Dulcolax Supp) 10 mg RECTAL DAILY PRN PRN Reason: FOR CONSTIPATION Diazepam (Valium) 10 mg PO Q8H PRN PRN Reason: FOR PAIN 1-3 Last Admin: 10/30/18 06:13 Dose: 10 mg Lactulose (Lactulose Liq) 30 ml PO DAILY PRN PRN Reason: FOR SEVERE CONSTIPATION Levothyroxine Sodium (Synthroid) 112 mcg PO 0600 [facility] Last Admin: 10/30/18 06:04 Dose: 112 mcg Lisinopril (Prinivil) 5 mg PO DAILY [facility] Last Admin: 10/30/18 09:00 Dose: 5 mg Magnesium Oxide (Mag-Ox) 400 mg PO DAILY [facility] Last Admin: 10/30/18 08:25 Dose: 400 mg Morphine Sulfate (Msir) 15 mg PO Q8H PRN PRN Reason: ACUTE PAIN 4-10 Last Admin: 10/30/18 10:50 Dose: 15 mg Ondansetron HCl (Zofran Odt) 4 mg PO Q6HR PRN PRN Reason: NAUSEA Pantoprazole Sodium (Protonix) 40 mg PO DAILY [facility] Last Admin: 10/30/18 08:24 Dose: 40 mg Paroxetine HCl (Paxil) 10 mg PO DAILY [facility] Last Admin: 10/30/18 10:50 Dose: 10 mg Potassium Chloride (K-Dur) 20 meq PO BID [facility] Last Admin: 10/30/18 08:25 Dose: 20 meq Prednisone (Deltasone) 30 mg PO DAILY [facility] Last Admin: 10/30/18 08:23 Dose: 30 mg Sennosides (Senokot) 17.2 mg PO Q12HR PRN PRN Reason: CONSIPATION Spironolactone (Aldactone) 25 mg PO DAILY [facility] Last Admin: 10/30/18 08:24 Dose: 25 mg Allergies Allergy/AdvReac Type Severity Reaction Status Date / Time cephalexin Allergy Severe RASH,SWELLI Verified 07/13/18 17:57 NG Fish Containing Products Allergy Severe SWELLING Verified 07/13/18 17:57 IN THROAT, SOB ketorolac Allergy Severe RASH Verified 07/13/18 17:57 penicillin G Allergy Severe RASH,SWELLI Verified 07/13/18 17:57 NG prochlorperazine Allergy Mild DYSTONIC Verified 07/13/18 17:57 REACTION promethazine Allergy Mild DYSTONIC Verified 07/13/18 17:57 REACTION Home Medications Medication Instructions Recorded Confirmed Type levothyroxine [Synthroid] 112 mcg PO DAILY 05/08/18 10/28/18 History magnesium 100 mg PO QID 05/08/18 10/28/18 History pantoprazole [Protonix] 40 mg PO DAILY 05/08/18 10/28/18 History potassium phosphate, monobasic 1,000 mg PO TID 05/08/18 10/28/18 History [K-Phos Original] prednisone 30 mg PO DAILY 05/08/18 10/28/18 History spironolactone 25 mg PO DAILY 05/08/18 10/28/18 History hydroxyzine HCl 50 mg PO HS PRN 10/28/18 10/28/18 History lorazepam [Ativan] 1 mg PO HS 10/28/18 10/28/18 History melatonin 5 mg PO HS PRN 10/28/18 10/28/18 History Exam Vital signs: Vital Signs 10/29/18 19:33 10/30/18 00:34 10/30/18 05:58 Temperature 98 F 97.9 F Pulse Rate 101 H 73 Respiratory Rate 18 18 16 Blood Pressure 102/69 102/59 L Pulse Oximetry 97 10/30/18 08:57 Temperature Pulse Rate 104 H Respiratory Rate Blood Pressure 114/73 Pulse Oximetry Intake & Output 10/29/18 10/30/18 10/30/18 18:59 06:59 18:59 Weight 76.2 kg Other: Weight On Admission 76.2 kg Mental Status Examination Appearance: Appropriate Consciousness: Alert Orientation: x4 Motor Activity: Normal gait Speech: Unremarkable Language: Adequate Fund of Knowledge: Adequate Attention and Concentration: Adequate Memory: Unremarkable Mood: Appropriate Affect: Appropriate Thought Process & Associations: Intact Thought Content: Appropriate Hallucination Type: None Delusion Type: None Suicidal Ideation: No (Denies) Suicidal Plan: No Suicidal Intention: No Homicidal Ideation: No Homicidal Plan: No Homicidal Intention: No Insight: Adequate Judgment: Impulsive Assessment and Plan - Plan Plan: Estimated LOS: [] days October 30, 2018 Patient will be observed to rule out suicidality as claimed by her mother but denied by the patient. Patient will be discharged to the mother's care pending the mother's obtaining a court order for hospitalization under the act. Justification for Continued Inpatient Stay: Patient denies any suicidality stream only unreliable informant and little can be decided based on her testament. Patient's mother claims that the patient has made suicidal threats.
[2018-10-31] MEDS: Morphine Sulfate 15 MG IR Tablet PO PRN ×2 (04:25→12:16)
[2018-10-31] MEDS: Levothyroxine 112 MCG Tablet PO SCH (05:07)
[2018-10-31 05:28] VITALS: BP 99/50; PULSE 60; RESP 20; TEMP 98.5; O2SAT 99
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
[2018-10-31] MEDS: Lisinopril 5 MG Tablet PO SCH (09:24)
[2018-10-31] MEDS: Magnesium Oxide 400 MG Tablet PO SCH (09:24)
[2018-10-31] MEDS: Spironolactone 25 MG Tablet PO SCH (09:24)
[2018-10-31] MEDS: predniSONE 10 MG Tablet PO SCH (09:24)
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
== END 2018-10-31 13:45 | disposition home or self-care (01) | DRG 883 ==
LOC: H260 18:10
PROVIDERS: ADMIT Psychiatry & Neurology Child & Adolescent Psychiatry; ATTEND Psychiatry & Neurology Child & Adolescent Psychiatry

== ENCOUNTER 2018-11-18 11:07 | Observation (INO) ==
[2018-11-18] MEDS ORDERED: Sod Chloride 0.9% Inj 1,000 ML IV.SIG ONE (11:34)
--- NOTE | 2018-11-18 12:05 | ED ---
HPI General Chief Complaint: Chest Pain Stated Complaint: Medical/Chest Pain Time Seen by Provider: 11/18/18 11:25 Source: patient Mode of arrival: ambulatory Limitations: no limitations History of Present Illness HPI narrative: 43-year-old female with a complicated medical history to include Brugada syndrome on a LifeVest, lupus, Crohn's disease, seizure disorder, hypothyroid presents to the emergency department for evaluation of left-sided chest pain that has been persistent for couple of days. She denies palliative factors but states that the pain increases movement and describes it as pulling , rate 7/10. She believes it is scar tissue from failed ICD placement previously. She states has not had her medication in a couple of days which include Neurontin for her seizures and her cardiac medications. She states that she is in between living situations and that her medications were thrown out by her previous roommates. She also reports that she has had diarrhea with every meal and says she has cramping just prior to the diarrhea but denies abdominal pain. Patient was seeing Dr. Cervantes of cardiology but does not currently have a cord splicer. She says that she is in between physicians and she has referrals out to rheumatology and neurology. Her primary care physician is Dr. Erickson Phillips with [facility]. She denies shortness of breath, nausea, vomiting, fevers. MD complaint: Reports chest pain Onset (ago): day(s) Duration: constant Onset: during exertion Pain location: Reports left chest Severity: mild Severity scale (1-10): 7 Quality: Reports tightness Pain radiation: Reports none Relieving factors: nothing Exacerbating factors: movement Treatments prior to arrival chest pain: Reports none Related Data Home Medications Medication Instructions Recorded Confirmed levothyroxine [Synthroid] 112 mcg PO DAILY 05/08/18 11/18/18 magnesium 100 mg PO QID 05/08/18 11/18/18 pantoprazole [Protonix] 40 mg PO DAILY 05/08/18 11/18/18 potassium phosphate, monobasic 1,000 mg PO TID 05/08/18 11/18/18 [K-Phos Original] prednisone 30 mg PO DAILY 05/08/18 11/18/18 spironolactone 25 mg PO DAILY 05/08/18 11/18/18 hydroxyzine HCl 50 mg PO HS PRN 10/28/18 11/18/18 melatonin 5 mg PO HS PRN 10/28/18 11/18/18 gabapentin 300 mg PO TID 11/18/18 11/18/18 Previous Rx's Medication Instructions Recorded diazepam [Valium] 10 mg PO Q8HR PRN tab 05/09/18 morphine 15 mg PO Q8HR PRN tab 05/09/18 amlodipine [Norvasc] 2.5 mg PO DAILY #30 tab 10/19/18 lisinopril 5 mg PO DAILY #30 tab 10/19/18 potassium chloride 20 meq PO BID #30 tab 10/19/18 Allergies Allergy/AdvReac Type Severity Reaction Status Date / Time cephalexin Allergy Severe RASH,SWELLI Verified 11/18/18 11:17 NG Fish Containing Products Allergy Severe SWELLING Verified 11/18/18 11:17 IN THROAT, SOB ketorolac Allergy Severe RASH Verified 11/18/18 11:17 penicillin G Allergy Severe RASH,SWELLI Verified 11/18/18 11:17 NG prochlorperazine Allergy Mild DYSTONIC Verified 11/18/18 11:17 REACTION promethazine Allergy Mild DYSTONIC Verified 11/18/18 11:17 REACTION Review of Systems ROS: all other systems reviewed are negative [facility] Social History Social History Substance History: No History of Abuse Second Hand Smoke Exposure: No Smoking Status: Never smoker Tobacco Type: Cigarettes How Often Do You Have a Drink Containing Alcohol: Never Hx Recent Travel: No Recent Travel in [facility] within the Last 8 Weeks: No Recent Out of Country Travel within the Last 8 Weeks: No Immunization History Tetanus Immunization: >5 Years Exam Narrative Exam Narrative: GENERAL: WD, WN in NAD SKIN: Focused skin assessment warm/dry. HEAD: Atraumatic. Normocephalic. EYES: Pupils equal and round. No scleral icterus. No injection or drainage. ENT: No nasal bleeding or discharge. Mucous membranes pink and moist. No tonsillar hypertrophy or exudate. NECK: Trachea midline. No JVD. No meningismus. No midline tenderness. CARDIOVASCULAR: Regular rate and rhythm. No murmur appreciated. RESPIRATORY: No accessory muscle use. Clear to auscultation. Breath sounds equal bilaterally. LifeVest in place GASTROINTESTINAL: Abdomen soft, non-tender, nondistended. No CVAT. MUSCULOSKELETAL: No obvious deformities. No clubbing. No cyanosis. No edema. No tenderness to palpation of the calves. Sensation intact to bilateral lower extremities. NEUROLOGICAL: Awake and alert. No obvious cranial nerve deficits. Motor grossly within normal limits. Normal speech. PSYCHIATRIC: Appropriate mood and affect; insight and judgment normal. Course Initial Documented Vital Signs Temperature 99.4 F 11/18/18 11:15 Pulse Rate 112 H 11/18/18 11:15 Respiratory Rate 20 11/18/18 11:15 Blood Pressure 149/90 H 11/18/18 11:15 Pulse Oximetry 99 11/18/18 11:15 Last Documented Vital Signs Temperature 99.3 F 11/18/18 20:00 Pulse Rate 96 H 11/18/18 20:00 Respiratory Rate 17 11/18/18 20:00 Blood Pressure 118/65 11/18/18 20:00 Pulse Oximetry 98 11/18/18 20:00 Medical Decision Making MDM Narrative Medical decision making narrative: 43y female presents to the ED for evaluation of chest pain and diarrhea that started a couple of days ago. She denies significant abdominal pain associated with her diarrhea and attributes this to Crohn's disease. She states she has not taken any of her medications in a couple of days because of the frequent moving that she has had. She says her chest pain is located in the left chest without radiation. Says the pain is 7 out of 10. No palliative factors but states it is increased with moving. Denies shortness of breath or nausea. Administer lidocaine viscous as patient states she also has a history of esophagitis. No significant improvement. Aspirin 324 mg administered. Labs ordered for evaluation to include d-dimer as she does have a history of lupus. Her CBC appears to be stable. Her CMP is also stable. Magnesium 1.9. Troponin less than 0.02. Urinalysis noncontributory. Chest x-ray without acute process. CTA without pulmonary embolus. There is note of a hernia which is stable. Nitro administered for continuous chest pain. I do not see that she has had a stress test within the last year. Patient has had cardiac cath to replace previous ICDs. Because of patient's history of seizure disorder and significant cardiac history , spoke to Dr. Waters who agreed to the admission. Medical Screen Exam Complete: Yes Emergency Medical Condition: Yes Differential Diagnosis Differential Diagnosis: AMI, angina, unstable angina, costochondritis, rib fracture, pneumonia, pneumothorax, aortic dissection, aortic aneurysm, pneumonitis, pulmonary embolism, medication noncompliance, Crohn's disease, diarrhea Lab Data Result diagrams: 11/18/18 11:50 11/18/18 11:50 POC Results POC Urine Results Negative Lab Results 11/18/18 11/18/18 11/18/18 Range/Units 11:45 11:50 11:50 WBC 8.0 (4.0-11.0) th/mm3 RBC 3.79 L (4.00-5.30) mil/mm3 Hgb 11.4 L (11.6-15.3) gm/dL Hct 33.5 L (35.0-46.0) % MCV 88.2 (80.0-100.0) fL MCH 30.0 (27.0-34.0) pg MCHC 34.0 (32.0-36.0) % RDW 13.7 (11.6-17.2) % Plt Count 209 (150-450) th/mm3 MPV 7.3 (7.0-11.0) fL Neut % (Auto) 85.2 H (16.0-70.0) % Lymph % (Auto) 9.8 (9.0-44.0) % [place] % (Auto) 4.3 (0.0-8.0) % Eos % (Auto) 0.2 (0.0-4.0) % Baso % (Auto) 0.5 (0.0-2.0) % Neut # (Auto) 6.8 (1.8-7.7) th/mm3 Lymph # (Auto) 0.8 L (1.0-4.8) th/mm3 [place] # (Auto) 0.3 (0.0-0.9) th/mm3 Eos # (Auto) 0.0 (0.0-0.4) th/mm3 Baso # (Auto) 0.0 (0.0-0.2) th/mm3 WBC Differential . Differential Comment Auto diff final PT (9.8-11.6) sec INR Ratio APTT (23.4-31.7) sec D-Dimer Quant (PE/DVT) 0.70 H (0.00-0.50) mg/L FEU Sodium (136-145) meq/L Potassium (3.5-5.1) meq/L Chloride (98-107) meq/L Carbon Dioxide (21.0-32.0) meq/L Anion Gap (5-15) meq/L BUN (7-18) mg/dL Creatinine (0.50-1.00) mg/dL Estimated GFR (>89) mL/min Random Glucose (74-106) mg/dL Calcium (8.5-10.1) mg/dL Magnesium (1.5-2.5) mg/dL Total Bilirubin (0.2-1.0) mg/dL AST (15-37) U/L ALT (10-53) U/L Alkaline Phosphatase (45-117) U/L Troponin I (0.02-0.05) ng/mL B-Natriuretic Peptide (0-100) pg/mL Total Protein (6.4-8.2) g/dL Albumin (3.4-5.0) g/dL Lipase (73-393) U/L Urine Color Straw (Yellw/Straw) Urine Clarity Clear (Clear) Urine pH 6.0 (5.0-8.5) Ur Specific [place] 1.004 (1.002-1.035) Urine Protein Negative (Neg-Trace) mg/dL Urine Glucose (UA) Negative (Negative) mg/dL Urine Ketones Negative (Negative) mg/dL Urine Occult Blood Negative (Negative) Urine Nitrate Negative (Negative) Urine Bilirubin Negative (Negative) Urine Urobilinogen Less than 2 (Less than 2) mg/dL Ur Leukocyte Esterase Negative (Negative) Urine RBC 1 (0-3) /hpf Urine WBC Less than 1 (0-5) /hpf Ur Squamous Epith Cells 8 (0-5) /hpf Micro UA Comment Culture not ind Ur Microscopic Review Not Reportable Urine Culture Comments Culture not ind Stl C.difficile DNA Amp (Negative) St C. diff Tox Epid 027 (Negative) 11/18/18 11/18/18 11/18/18 Range/Units 11:50 11:50 11:50 WBC (4.0-11.0) th/mm3 RBC (4.00-5.30) mil/mm3 Hgb (11.6-15.3) gm/dL Hct (35.0-46.0) % MCV (80.0-100.0) fL MCH (27.0-34.0) pg MCHC (32.0-36.0) % RDW (11.6-17.2) % Plt Count (150-450) th/mm3 MPV (7.0-11.0) fL Neut % (Auto) (16.0-70.0) % Lymph % (Auto) (9.0-44.0) % [place] % (Auto) (0.0-8.0) % Eos % (Auto) (0.0-4.0) % Baso % (Auto) (0.0-2.0) % Neut # (Auto) (1.8-7.7) th/mm3 Lymph # (Auto) (1.0-4.8) th/mm3 [place] # (Auto) (0.0-0.9) th/mm3 Eos # (Auto) (0.0-0.4) th/mm3 Baso # (Auto) (0.0-0.2) th/mm3 WBC Differential Differential Comment PT 10.3 (9.8-11.6) sec INR 1.0 Ratio APTT 26.2 (23.4-31.7) sec D-Dimer Quant (PE/DVT) (0.00-0.50) mg/L FEU Sodium 141 (136-145) meq/L Potassium 3.5 (3.5-5.1) meq/L Chloride 110 H (98-107) meq/L Carbon Dioxide 23.2 (21.0-32.0) meq/L Anion Gap 8 (5-15) meq/L BUN 8 (7-18) mg/dL Creatinine 1.17 H (0.50-1.00) mg/dL Estimated GFR 51 L (>89) mL/min Random Glucose 117 H (74-106) mg/dL Calcium 8.6 (8.5-10.1) mg/dL Magnesium (1.5-2.5) mg/dL Total Bilirubin 0.3 (0.2-1.0) mg/dL AST 16 (15-37) U/L ALT 27 (10-53) U/L Alkaline Phosphatase 67 (45-117) U/L Troponin I Less than 0.02 L (0.02-0.05) ng/mL B-Natriuretic Peptide 32 (0-100) pg/mL Total Protein 7.3 (6.4-8.2) g/dL Albumin 3.9 (3.4-5.0) g/dL Lipase 156 (73-393) U/L Urine Color (Yellw/Straw) Urine Clarity (Clear) Urine pH (5.0-8.5) Ur Specific [place] (1.002-1.035) Urine Protein (Neg-Trace) mg/dL Urine Glucose (UA) (Negative) mg/dL Urine Ketones (Negative) mg/dL Urine Occult Blood (Negative) Urine Nitrate (Negative) Urine Bilirubin (Negative) Urine Urobilinogen (Less than 2) mg/dL Ur Leukocyte Esterase (Negative) Urine RBC (0-3) /hpf Urine WBC (0-5) /hpf Ur Squamous Epith Cells (0-5) /hpf Micro UA Comment Ur Microscopic Review Urine Culture Comments Stl C.difficile DNA Amp (Negative) St C. diff Tox Epid 027 (Negative) 11/18/18 11/18/18 11/18/18 Range/Units 11:50 16:00 18:00 WBC (4.0-11.0) th/mm3 RBC (4.00-5.30) mil/mm3 Hgb (11.6-15.3) gm/dL Hct (35.0-46.0) % MCV (80.0-100.0) fL MCH (27.0-34.0) pg MCHC (32.0-36.0) % RDW (11.6-17.2) % Plt Count (150-450) th/mm3 MPV (7.0-11.0) fL Neut % (Auto) (16.0-70.0) % Lymph % (Auto) (9.0-44.0) % [place] % (Auto) (0.0-8.0) % Eos % (Auto) (0.0-4.0) % Baso % (Auto) (0.0-2.0) % Neut # (Auto) (1.8-7.7) th/mm3 Lymph # (Auto) (1.0-4.8) th/mm3 [place] # (Auto) (0.0-0.9) th/mm3 Eos # (Auto) (0.0-0.4) th/mm3 Baso # (Auto) (0.0-0.2) th/mm3 WBC Differential Differential Comment PT (9.8-11.6) sec INR Ratio APTT (23.4-31.7) sec D-Dimer Quant (PE/DVT) (0.00-0.50) mg/L FEU Sodium (136-145) meq/L Potassium (3.5-5.1) meq/L Chloride (98-107) meq/L Carbon Dioxide (21.0-32.0) meq/L Anion Gap (5-15) meq/L BUN (7-18) mg/dL Creatinine (0.50-1.00) mg/dL Estimated GFR (>89) mL/min Random Glucose (74-106) mg/dL Calcium (8.5-10.1) mg/dL Magnesium 1.9 (1.5-2.5) mg/dL Total Bilirubin (0.2-1.0) mg/dL AST (15-37) U/L ALT (10-53) U/L Alkaline Phosphatase (45-117) U/L Troponin I Less than 0.02 L (0.02-0.05) ng/mL B-Natriuretic Peptide (0-100) pg/mL Total Protein (6.4-8.2) g/dL Albumin (3.4-5.0) g/dL Lipase (73-393) U/L Urine Color (Yellw/Straw) Urine Clarity (Clear) Urine pH (5.0-8.5) Ur Specific [place] (1.002-1.035) Urine Protein (Neg-Trace) mg/dL Urine Glucose (UA) (Negative) mg/dL Urine Ketones (Negative) mg/dL Urine Occult Blood (Negative) Urine Nitrate (Negative) Urine Bilirubin (Negative) Urine Urobilinogen (Less than 2) mg/dL Ur Leukocyte Esterase (Negative) Urine RBC (0-3) /hpf Urine WBC (0-5) /hpf Ur Squamous Epith Cells (0-5) /hpf Micro UA Comment Ur Microscopic Review Urine Culture Comments Stl C.difficile DNA Amp Negative (Negative) St C. diff Tox Epid 027 Negative (Negative) Imaging Data Radiologist's impression: Chest X-Ray 11/18/18 11:34 CONCLUSION: No acute cardiopulmonary process Chest CTA 11/18/18 12:47 CONCLUSION: 1. Lungs are clear. No pulmonary embolus. 2. Small anterior abdominal wall hernia just inferior to xiphoid is stable. 3. A few borderline prominent lymph nodes measuring upwards of 1.3 cm in diameter at the level of the renal vessels were present previously and are completely unchanged. These are likely reactive. Discharge Plan Discharge Disposition Patient Disposition: ED Admit(ED Internal Use Only) Discharge Condition Condition: Stable Discharge Order Discharge Orders: ED Use Only Admit Order (Routine); Ordered 11/18/18 Ordered By: Jennifer Velez Discharge Details Diagnosis: Chest pain, Diarrhea Physicians Team ED Provider: Rae Smith ED Midlevel Provider: Jennifer Velez Primary Care Provider: Elvira Freeman, Attending Provider: Kane Waters ED Status: Left Department Discharge Information Discharge Date/Time: 11/18/18 16:09
[2018-11-18] MEDS ORDERED: LORazepam 1 MG Tablet PO ONE (12:11)
[2018-11-18 12:14] LABS: Baso % (Auto) 0.5 % (0.0-2.0); Eos % (Auto) 0.2 % (0.0-4.0); Hematocrit 33.5 % (35.0-46.0); Hemoglobin 11.4 gm/dL (11.6-15.3); Lymph # (Auto) 0.8 th/mm3 (1.0-4.8); Lymph % (Auto) 9.8 % (9.0-44.0); Mean Corpuscular Volume 88.2 fL (80.0-100.0); Mean Platelet Volume 7.3 fL (7.0-11.0); Mono # (Auto) 0.3 th/mm3 (0.0-0.9); Mono % (Auto) 4.3 % (0.0-8.0); Neut # (Auto) 6.8 th/mm3 (1.8-7.7); Neut % (Auto) 85.2 % (16.0-70.0); Platelet Count 209 th/mm3 (150-450); Red Blood Count 3.79 mil/mm3 (4.00-5.30); Red Cell Distribution Width 13.7 % (11.6-17.2)
[2018-11-18 12:16] LABS: Bilirubin,Urine Negative (Negative); Clarity,Urine Clear (Clear); Color,Urine Straw (Yellw/Straw); Glucose,Urine (UA) Negative (Negative); Leukocyte Esterase,Urine Negative (Negative); Nitrite,Urine Negative (Negative); Specific Gravity,Urine 1.004 (1.002-1.035); Squamous Epithelial Cell,Urine 8 /hpf (0-5)
[2018-11-18 12:24] LABS: Activated Partial Thrombo Time 26.2 sec (23.4-31.7); Prothrombin Time 10.3 sec (9.8-11.6)
[2018-11-18 12:31] LABS: Alanine Aminotransferase 27 U/L (10-53); Albumin 3.9 g/dL (3.4-5.0); Anion Gap 8 meq/L (5-15); Aspartate Aminotransferase 16 U/L (15-37); Blood Urea Nitrogen 8 mg/dL (7-18); Calcium 8.6 mg/dL (8.5-10.1); Carbon Dioxide 23.2 meq/L (21.0-32.0); Chloride 110 meq/L (98-107); Glomerular Filtration Rate 51 mL/min (>89); Glucose,Random 117 mg/dL (74-106); Lipase 156 U/L (73-393); Potassium 3.5 meq/L (3.5-5.1); Sodium 141 meq/L (136-145)
[2018-11-18 12:35] LABS: Alkaline Phosphatase 67 U/L (45-117); Total Protein 7.3 g/dL (6.4-8.2)
--- NOTE | 2018-11-18 12:50 | XR ---
EXAM DATE: 11/18/2018 12:43 PM EST AGE/SEX: 43 years / Female INDICATIONS: Chest pains. CLINICAL DATA: This is the patient's initial encounter. Patient reports that signs and symptoms have been present for 2 days and indicates a pain score of 5/10. MEDICAL/SURGICAL HISTORY: None. None. [place] [facility] [place]. . FINDINGS: A single AP view of the chest demonstrates the lungs to be symmetrically aerated without evidence of mass, infiltrate or effusion. The cardiomediastinal contours are unremarkable. Osseous structures a re intact. Extensive electronics project over the chest and upper abdomen in a similar pattern to th e prior exam possibly representing a subcutaneous pacer/defibrillator. Previously seen left upper ext remity PICC line has been removed. CONCLUSION: No acute cardiopulmonary process Electronically signed by: Everton Higginbotham MD Board Certified Radiologist 11/18/2018 12:48 PM EST
--- NOTE | 2018-11-18 14:12 | CT ---
EXAM DATE: 11/18/2018 2:00 PM EST AGE/SEX: 43 years / Female INDICATIONS: Chest Pain CLINICAL DATA: This is the patient's initial encounter. Patient reports that signs and symptoms have been present for 1 day and indicates a pain score of 8/10. MEDICAL/SURGICAL HISTORY: Gastroparesis. Lupus. Renal disease. Crohn's, Endometriosis Appendect jazlyn. Defibrillator. RADIATION DOSE: 16.40 CTDI (mGy) COMPARISON: [facility] – [place] ABDOMEN & PELVIS W CONTRAST, 06/04/2018. . TECHNIQUE: Volumetric scanning was performed using a multi-row detector CT scanner during bolus infu shaun of 75ML ml Visipaque 320 (iodixanol) nonionic water-soluble contrast as a single exam dose. The data was post processed with a variety of visualization algorithms including full volume maximum int ensity projection and sliding thin slab reformation. Using automated exposure control and adjustment of the mA and/or kV according to patient size, radiation dose was kept as low as reasonably achievab le to obtain optimal diagnostic quality images. DICOM format image data is available electronically for review and comparison. FINDINGS: Pulmonary Arteries: No filling defects are seen in the pulmonary arteries out to the subsegmental ve ssels. The left and right pulmonary arteries are normal in diameter. Lung: No infiltrates seen. Effusion: None. Mediastinum: No evidence of mediastinal or hilar adenopathy. Other: The axilla is unremarkable. Extensive hardware overlying the chest and upper abdomen presumab ly represents a percutaneous defibrillator/pacer. There are some borderline prominent periaortic lymp h nodes at the level of the renal vessels. These were present on the prior CT and almost certainly re active. A small anterior abdominal wall hernia midline just below the xiphoid only contains fat and i s unchanged from prior.. CONCLUSION: 1. Lungs are clear. No pulmonary embolus. 2. Small anterior abdominal wall hernia just inferior to xiphoid is stable. 3. A few borderline prominent lymph nodes measuring upwards of 1.3 cm in diameter at the level of th e renal vessels were present previously and are completely unchanged. These are likely reactive. Electronically signed by: Everton Higginbotham MD Board Certified Radiologist 11/18/2018 2:11 PM EST
[2018-11-18] MEDS ORDERED: Bisacodyl 10 MG Supp RECTAL PRN (15:29)
[2018-11-18] MEDS ORDERED: Acetaminophen 325 MG Tablet PO PRN (15:29)
[2018-11-18] MEDS ORDERED: Melatonin 5 MG Tablet PO PRN (15:33)
--- NOTE | 2018-11-18 15:40 | P.HP ---
History of Present Illness Service: [facility] Primary Care Physician: Elvira Freeman Chief Complaint: Chest pain History of Present Illness: 43-year-old female with past medical history significant for lupus, Crohn's disease, hypothyroidism, endometriosis, gastroparesis, chronic kidney disease stage III, interstitial cystitis, Brugada syndrome with AICD placement later removed October 2018 secondary to infection who presents to the emergency department with complaints of chest pain and body aches. Patient reports that she has been in between living situations and all of her medications got "thrown out". She began having body aches about 2 days ago and states that she believed it was due to the fact that she had not taken her potassium supplementation however when she obtained this body aches continued. She also reports dysuria, suprapubic pain, frequency and diarrhea for the past 2 days. She reports that today she has had a total of 12 bowel movements, loose and yellow in color. She denies any nausea or vomiting. Denies any fevers, chills, cough, shortness of breath. Patient also reports chest pain and states this began 2 days ago. She reports pain on her sternum is pounding and radiating. She denies any dizziness, lightheadedness. She reports she was last seen by in October when she was here in the hospital. She states that due to her insurance she will have to change nursing support worker and has yet to establish with new nursing support worker. She is requesting that her home medications be restarted. Does not voice any other acute concern or complaint. - Diagnosis (1) Atypical chest pain (2) Diarrhea (3) Generalized body aches (4) Brugada syndrome Review of Systems All other systems reviewed negative except as stated in HPI PMFSH - History History 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, Medical Record - Medical History Medical History: Medical History (Last Reviewed 11/18/18 @ 15:41 by Jaylin Garcia) Anxiety Brugada syndrome CKD (chronic kidney disease) stage 3, GFR 30-59 ml/min Crohn's disease Endometriosis Esophagitis Gastroparesis Gastroparesis History of MRSA infection Onset Date: ~10/06/18 Hypokalemia Hypothyroidism Interstitial cystitis Lupus PTSD (post-traumatic stress disorder) - Surgical History Surgical History: Surgical History (Last Reviewed 11/18/18 @ 15:42 by Jaylin Garcia) AICD (automatic cardioverter/defibrillator) present History of appendectomy History of laparoscopy Hx of colonoscopy Hx of cystoscopy Hx of esophagogastroduodenoscopy - Family History Family History: Family History (Last Reviewed 11/18/18 @ 15:42 by Jaylin Garcia) Mother Brittany angina Breast cancer - Social History I have reviewed the patient's Social History: Yes - Tobacco History Second Hand Smoke Exposure: No Smoking Status: Never smoker Tobacco Type: Cigarettes - Alcohol History How Often Do You Have a Drink Containing Alcohol: Never - Substance Use History Substance History: No History of Abuse - Travel History History of Recent Travel: No Recent Travel in the [place] Within the Last 8 Weeks: No Recent Travel Out of the Country Within the Last 8 Weeks: No - Immunization History Tetanus Immunization: >5 Years Medications and Allergies Active Medications: Active Medications Acetaminophen (Tylenol) 650 mg PO Q4H PRN PRN Reason: Temp > 100.4 Al Hydroxide/Mg Hydroxide (Milk Of Magnesia Liq) 30 ml PO Q12H PRN PRN Reason: Mild Constipation Amlodipine Besylate (Norvasc) 2.5 mg PO DAILY SHUKRI Bisacodyl (Dulcolax Supp) 10 mg RECTAL DAILY PRN PRN Reason: SEVERE CONSITIPATION Diazepam (Valium) 10 mg PO Q8HR PRN PRN Reason: Acute Pain Gabapentin (Neurontin) 300 mg PO TID [facility] Heparin Sodium (Porcine) (Heparin Inj) 5,000 units SQ Q12H SHUKRI Hydroxyzine HCl (Atarax) 50 mg PO HS PRN PRN Reason: Sleep Lactulose (Lactulose Liq) 30 ml PO DAILY PRN PRN Reason: SEVERE CONSITIPATION Levothyroxine Sodium (Synthroid) 112 mcg PO DAILY [facility] Lisinopril (Prinivil) 5 mg PO DAILY [facility] Melatonin (Melatonin) 5 mg PO HS PRN PRN Reason: Sleep Morphine Sulfate (Msir) 15 mg PO Q8HR PRN PRN Reason: Acute Pain Non-Formulary Medication (Magnesium [Magnesium]) 100 mg PO QID [facility] Ondansetron HCl (Zofran Inj) 4 mg IV.PUSH Q6H PRN PRN Reason: NAUSEA OR VOMITING Pantoprazole Sodium (Protonix) 40 mg PO DAILY [facility] Potassium Chloride (K-Dur) 20 meq PO BID SHUKRI Prednisone (Deltasone) 30 mg PO DAILY [facility] Sennosides (Senokot) 17.2 mg PO Q12H PRN PRN Reason: Moderate Constipation Sodium Chloride (Ns Flush) 2 ml IV.FLUSH UNSCH PRN PRN Reason: FLUSH AFTER USING IV ACCESS Last Admin: 11/18/18 11:53 Dose: 2 ml Sodium Chloride (Ns Flush) 2 ml IV.FLUSH BID SHUKRI Sodium Chloride (Ns Flush) 2 ml IV.FLUSH PRN PRN PRN Reason: FLUSH AFTER USING IV ACCESS Spironolactone (Aldactone) 25 mg PO DAILY [facility] Allergies Allergy/AdvReac Type Severity Reaction Status Date / Time cephalexin Allergy Severe RASH,SWELLI Verified 11/18/18 11:17 NG Fish Containing Products Allergy Severe SWELLING Verified 11/18/18 11:17 IN THROAT, SOB ketorolac Allergy Severe RASH Verified 11/18/18 11:17 penicillin G Allergy Severe RASH,SWELLI Verified 11/18/18 11:17 NG prochlorperazine Allergy Mild DYSTONIC Verified 11/18/18 11:17 REACTION promethazine Allergy Mild DYSTONIC Verified 11/18/18 11:17 REACTION Home Medications Medication Instructions Recorded Confirmed Type levothyroxine [Synthroid] 112 mcg PO DAILY 05/08/18 11/18/18 History magnesium 100 mg PO QID 05/08/18 11/18/18 History pantoprazole [Protonix] 40 mg PO DAILY 05/08/18 11/18/18 History potassium phosphate, monobasic 1,000 mg PO TID 05/08/18 11/18/18 History [K-Phos Original] prednisone 30 mg PO DAILY 05/08/18 11/18/18 History spironolactone 25 mg PO DAILY 05/08/18 11/18/18 History hydroxyzine HCl 50 mg PO HS PRN 10/28/18 11/18/18 History melatonin 5 mg PO HS PRN 10/28/18 11/18/18 History gabapentin 300 mg PO TID 11/18/18 11/18/18 History Exam Vital signs: Vital Signs 11/18/18 11:15 11/18/18 11:38 11/18/18 11:44 Temperature 99.4 F Pulse Rate 112 H 81 80 Respiratory Rate 20 20 Blood Pressure 149/90 H 143/86 H Pulse Oximetry 99 100 01/13/19 11:45 11/18/18 14:17 11/18/18 15:03 Temperature Pulse Rate 94 H Respiratory Rate 18 18 Blood Pressure 141/84 H Pulse Oximetry 100 100 Intake & Output 11/17/18 11/18/18 11/18/18 18:59 06:59 18:59 Intake Total 1000 / 1000 Balance 1000 / 1000 Weight 72.575 kg Intake: IV 1000 / 1000 NS Inj 1,000 ML @ Wide Open IV. 1000 / 1000 SIG BOLUS ONE Rx#:[id number] Narrative: GENERAL: Well-nourished, well-developed female in no acute distress. SKIN: Warm and dry. HEAD: Atraumatic. Normocephalic. EYES: Pupils equal and round. No scleral icterus. No injection or drainage. ENT: No nasal bleeding or discharge. Mucous membranes pink and moist. NECK: Trachea midline. No JVD. CARDIOVASCULAR: Regular rate and rhythm. LifeVest in place. RESPIRATORY: No accessory muscle use. Clear to auscultation. Breath sounds equal bilaterally. GASTROINTESTINAL: Abdomen soft, non-tender, nondistended. Hyperactive bowel sounds. MUSCULOSKELETAL: Extremities without clubbing, cyanosis, or edema. No obvious deformities. NEUROLOGICAL: Awake, alert, oriented x3. No obvious cranial nerve deficits. Motor grossly within normal limits. Five out of 5 muscle strength in the arms and legs. Normal speech. PSYCHIATRIC: Appropriate mood and affect; insight and judgment normal. Results - Labs CBC & Chem 7: 11/18/18 11:50 11/18/18 11:50 Labs: Laboratory Results - last 24 hr 11/18/18 11/18/18 11/18/18 11:45 11:50 11:50 WBC 8.0 RBC 3.79 L Hgb 11.4 L Hct 33.5 L MCV 88.2 MCH 30.0 MCHC 34.0 RDW 13.7 Plt Count 209 MPV 7.3 Neut % (Auto) 85.2 H Lymph % (Auto) 9.8 [place] % (Auto) 4.3 Eos % (Auto) 0.2 Baso % (Auto) 0.5 Neut # (Auto) 6.8 Lymph # (Auto) 0.8 L [place] # (Auto) 0.3 Eos # (Auto) 0.0 Baso # (Auto) 0.0 WBC Differential . Differential Comment Auto diff final PT INR APTT D-Dimer Quant (PE/DVT) 0.70 H Sodium Potassium Chloride Carbon Dioxide Anion Gap BUN Creatinine Estimated GFR Random Glucose Calcium Magnesium Total Bilirubin AST ALT Alkaline Phosphatase Troponin I B-Natriuretic Peptide Total Protein Albumin Lipase Urine Color Straw Urine Clarity Clear Urine pH 6.0 Ur Specific [place] 1.004 Urine Protein Negative Urine Glucose (UA) Negative Urine Ketones Negative Urine Occult Blood Negative Urine Nitrate Negative Urine Bilirubin Negative Urine Urobilinogen Less than 2 Ur Leukocyte Esterase Negative Urine RBC 1 Urine WBC Less than 1 Ur Squamous Epith Cells 8 Micro UA Comment Culture not ind Ur Microscopic Review Not Reportable Urine Culture Comments Culture not ind 11/18/18 11/18/18 11/18/18 11:50 11:50 11:50 WBC RBC Hgb Hct MCV MCH MCHC RDW Plt Count MPV Neut % (Auto) Lymph % (Auto) [place] % (Auto) Eos % (Auto) Baso % (Auto) Neut # (Auto) Lymph # (Auto) [place] # (Auto) Eos # (Auto) Baso # (Auto) WBC Differential Differential Comment PT 10.3 INR 1.0 APTT 26.2 D-Dimer Quant (PE/DVT) Sodium 141 Potassium 3.5 Chloride 110 H Carbon Dioxide 23.2 Anion Gap 8 BUN 8 Creatinine 1.17 H Estimated GFR 51 L Random Glucose 117 H Calcium 8.6 Magnesium Total Bilirubin 0.3 AST 16 ALT 27 Alkaline Phosphatase 67 Troponin I Less than 0.02 L B-Natriuretic Peptide 32 Total Protein 7.3 Albumin 3.9 Lipase 156 Urine Color Urine Clarity Urine pH Ur Specific [place] Urine Protein Urine Glucose (UA) Urine Ketones Urine Occult Blood Urine Nitrate Urine Bilirubin Urine Urobilinogen Ur Leukocyte Esterase Urine RBC Urine WBC Ur Squamous Epith Cells Micro UA Comment Ur Microscopic Review Urine Culture Comments 11/18/18 11:50 WBC RBC Hgb Hct MCV MCH MCHC RDW Plt Count MPV Neut % (Auto) Lymph % (Auto) [place] % (Auto) Eos % (Auto) Baso % (Auto) Neut # (Auto) Lymph # (Auto) [place] # (Auto) Eos # (Auto) Baso # (Auto) WBC Differential Differential Comment PT INR APTT D-Dimer Quant (PE/DVT) Sodium Potassium Chloride Carbon Dioxide Anion Gap BUN Creatinine Estimated GFR Random Glucose Calcium Magnesium 1.9 Total Bilirubin AST ALT Alkaline Phosphatase Troponin I B-Natriuretic Peptide Total Protein Albumin Lipase Urine Color Urine Clarity Urine pH Ur Specific [place] Urine Protein Urine Glucose (UA) Urine Ketones Urine Occult Blood Urine Nitrate Urine Bilirubin Urine Urobilinogen Ur Leukocyte Esterase Urine RBC Urine WBC Ur Squamous Epith Cells Micro UA Comment Ur Microscopic Review Urine Culture Comments - Imaging Impressions Chest X-Ray 11/18/18 11:34 CONCLUSION: No acute cardiopulmonary process Chest CTA 11/18/18 12:47 CONCLUSION: 1. Lungs are clear. No pulmonary embolus. 2. Small anterior abdominal wall hernia just inferior to xiphoid is stable. 3. A few borderline prominent lymph nodes measuring upwards of 1.3 cm in diameter at the level of the renal vessels were present previously and are completely unchanged. These are likely reactive. Caprini VTE Risk Assessment Caprini VTE Risk Assessment: No/Low Risk (score <= 1) Caprini Risk Assessment Model: Point Value = 1 Point Value = 2 Point Value = 3 Point Value = 5 Age 41-60 Minor surgery BMI > 25 kg/m2 Swollen legs Varicose veins or History of unexplained or recurrent spontaneous Oral contraceptives or hormone replacement Sepsis (< 1 month) Serious lung disease, including pneumonia (< 1 month) Abnormal pulmonary function Acute myocardial infarction Congestive heart failure (< 1 month) History of inflammatory bowel disease Medical patient at bed rest Age 61-74 Arthroscopic surgery Major open surgery (> 45 min) Laparoscopic surgery (> 45 min) Malignancy Confined to bed (> 72 hours) Immobilizing plaster cast Central venous access Age >= 75 History of VTE Family history of VTE Factor V Leiden Prothrombin [id number] Lupus anticoagulant Anticardiolipin antibodies Elevated serum homocysteine Heparin-induced thrombocytopenia Other congenital or acquired thrombophilia Stroke (< 1 month) Elective arthroplasty Hip, pelvis, or leg fracture Acute spinal cord injury (< 1 month) Prophylaxis Regimen: Total Risk Factor Score Risk Level Prophylaxis Regimen 0-1 Low Early ambulation 2 Moderate Order ONE of the following: *Sequential Compression Device (SCD) *Heparin 5000 units SQ BID 3-4 Higher Order ONE of the following medications: *Heparin 5000 units SQ TID *Enoxaparin/Lovenox 40 mg SQ daily (WT < 150 kg, CrCl > 30 mL/min) *Enoxaparin/Lovenox 30 mg SQ daily (WT < 150 kg, CrCl > 10-29 mL/min) *Enoxaparin/Lovenox 30 mg SQ BID (WT < 150 kg, CrCl > 30 mL/min) AND/OR *Sequential Compression Device (SCD) 5 or more Highest Order ONE of the following medications: *Heparin 5000 units SQ TID (Preferred with Epidurals) *Enoxaparin/Lovenox 40 mg SQ daily (WT < 150 kg, CrCl > 30 mL/min) *Enoxaparin/Lovenox 30 mg SQ daily (WT < 150 kg, CrCl > 10-29 mL/min) *Enoxaparin/Lovenox 30 mg SQ BID (WT < 150 kg, CrCl > 30 mL/min) AND *Sequential Compression Device (SCD) Assessment and Plan - Assessment (1) Atypical chest pain Code(s): R07.89 - Other chest pain Status: Acute (2) Diarrhea Code(s): R19.7 - Diarrhea, unspecified Status: Acute (3) Generalized body aches Code(s): R52 - Pain, unspecified Status: Acute (4) Brugada syndrome Code(s): I49.8 - Other specified cardiac arrhythmias Status: Resolved - Plan 43-year-old female with past medical history significant for lupus, Crohn's disease, hypothyroidism, endometriosis, gastroparesis, chronic kidney disease stage III, interstitial cystitis, Brugada syndrome with AICD placement later removed October 2018 secondary to infection who presents to the emergency department with complaints of chest pain and body aches. Atypical chest pain History of Brugada syndrome -Patient with recently removed AICD secondary to infection treated with IV antibiotics now with LifeVest in place -Patient yet to establish with new nursing support worker -Troponin negative, EKG normal sinus rhythm with no noted ST changes -Chest CTA with a few prominent lymph nodes at the level of renal vessels previously noted and unchanged. -Continue trending troponins and EKG -Monitor on telemetry -Consult cardiology tomorrow for on-call nursing support worker. Patient no longer being followed by Hypertension, chronic -Continue patient's home medications -Monitor heart rate and BP and adjust accordingly Generalized body aches History of systemic lupus erythematosus -Patient recently out of her medications -Continue home dose prednisone and morphine Dysuria -CBC with no leukocytosis, UA with no culture indicated Diarrhea History of Crohn's -Continue patient's home prednisone, check stool for C. difficile Chronic kidney disease stage III Creatinine baseline around 1.2 -Continue monitoring renal function -Avoid nephrotoxins History of seizures -Continue patient's home dose gabapentin -Seizure precautions DVT prophylaxissubcu heparin Discussed Condition With: Patient, and
[2018-11-18] MEDS: Magnesium Oxide 400 MG Tablet PO SCH ×2 (17:22→20:19)
[2018-11-18] MEDS: Morphine Sulfate 15 MG IR Tablet PO PRN (17:22)
[2018-11-18] MEDS: Heparin - SQ 10,000 UNITS/ML Vial SQ SCH (17:22)
[2018-11-18] MEDS: Gabapentin 300 MG Capsule PO SCH (17:22)
[2018-11-18] MEDS: Potassium Chloride 25 MEQ Effervescent Tablet PO SCH (20:19)
[2018-11-18] MEDS ORDERED: Senna/Docusate Sodium 8.6/50 MG Tablet PO SCH (21:00)
[2018-11-19] MEDS: Morphine Sulfate 15 MG IR Tablet PO PRN ×2 (01:07→08:52)
[2018-11-19] MEDS: Heparin - SQ 10,000 UNITS/ML Vial SQ SCH (05:34)
[2018-11-19] MEDS ORDERED: Levothyroxine 112 MCG Tablet PO SCH (06:00)
[2018-11-19 07:44] VITALS: BP 106/63; PULSE 90; RESP 16; TEMP 98.5; O2SAT 98
[2018-11-19] MEDS: Magnesium Oxide 400 MG Tablet PO SCH (08:53)
[2018-11-19] MEDS: Gabapentin 300 MG Capsule PO SCH ×2 (08:53→11:31)
[2018-11-19] MEDS: Potassium Chloride 25 MEQ Effervescent Tablet PO SCH (08:54)
[2018-11-19] MEDS ORDERED: Spironolactone 25 MG Tablet PO SCH (09:00)
[2018-11-19] MEDS ORDERED: predniSONE 20 MG Tablet PO SCH (09:00)
[2018-11-19] MEDS ORDERED: amLODIPine 5 MG Tablet PO SCH (09:00)
[2018-11-19] MEDS ORDERED: Lisinopril 5 MG Tablet PO SCH (09:00)
[2018-11-19 09:16] LABS: Calcium 8.2 mg/dL (8.5-10.1); Potassium 3.6 meq/L (3.5-5.1)
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
--- NOTE | 2018-11-19 16:10 | P.CONCA ---
History of Present Illness Service: Cardiology Consult date: 11/19/18 Requesting Physician: Amy Mann Reason for Consult: Chest pain Primary Care Provider: Elvira Freeman Chief Complaint: Chest pain History of Present Illness: Patient was seen and evaluated this morning. This is a 43-year-old female with a past medical history of lupus, Crohn's disease, hypothyroidism, endometriosis, gastroparesis, chronic kidney disease stage III, interstitial cystitis, Brugada syndrome with AICD placement on 12/28/17 which was later removed in 10/2018 secondary to infection. She states that she developed chest pain and generalized body aches 3 days ago. She has had issues with getting a permanent living space and during her moving, all her medications were thrown away and this is when the pains started. She also complained of dysuria, suprapubic pain and diarrhea. She denied any fever or chills. She describes the chest pain as midsternal that is pounding and radiating through her chest. She states that she was seen by Dr. Cervantes in October during her last hospitalization but that her insurance has recently change and she has not established with a new administrative representative. She currently complains of midsternal chest pain that radiates throughout her chest and diarrhea. Review of Systems All other systems reviewed negative except as stated in HPI PMFSH - History History 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 - Medical History Medical History: Medical History (Last Reviewed 11/18/18 @ 15:41 by Jaylin Garcia) Anxiety Brugada syndrome CKD (chronic kidney disease) stage 3, GFR 30-59 ml/min Crohn's disease Endometriosis Esophagitis Gastroparesis Gastroparesis History of MRSA infection Onset Date: ~10/06/18 Hypokalemia Hypothyroidism Interstitial cystitis Lupus PTSD (post-traumatic stress disorder) - Surgical History Surgical History: Surgical History (Last Reviewed 11/18/18 @ 15:42 by Jaylin Garcia) AICD (automatic cardioverter/defibrillator) present History of appendectomy History of laparoscopy Hx of colonoscopy Hx of cystoscopy Hx of esophagogastroduodenoscopy - Family History Family History: Family History (Last Reviewed 11/18/18 @ 15:42 by Jaylin Garcia) Mother Prinzmetal angina Breast cancer - Tobacco History Second Hand Smoke Exposure: No Tobacco Use In Past 30 Days: No Smoking Status: Never smoker Tobacco Type: Cigarettes - Alcohol History How Often Do You Have a Drink Containing Alcohol: Never - Substance Use History Substance History: No History of Abuse - Travel History History of Recent Travel: No Recent Travel in the [place] Within the Last 8 Weeks: No Recent Travel Out of the Country Within the Last 8 Weeks: No - Immunization History Tetanus Immunization: >5 Years Medications and Allergies Allergies Allergy/AdvReac Type Severity Reaction Status Date / Time cephalexin Allergy Severe RASH,SWELLI Verified 11/18/18 11:17 NG Fish Containing Products Allergy Severe SWELLING Verified 11/18/18 11:17 IN THROAT, SOB ketorolac Allergy Severe RASH Verified 11/18/18 11:17 penicillin G Allergy Severe RASH,SWELLI Verified 11/18/18 11:17 NG prochlorperazine Allergy Mild DYSTONIC Verified 11/18/18 11:17 REACTION promethazine Allergy Mild DYSTONIC Verified 11/18/18 11:17 REACTION Home Medications Medication Instructions Recorded Confirmed Type levothyroxine [Synthroid] 112 mcg PO DAILY 05/08/18 11/18/18 History magnesium 100 mg PO QID 05/08/18 11/18/18 History pantoprazole [Protonix] 40 mg PO DAILY 05/08/18 11/18/18 History potassium phosphate, monobasic 1,000 mg PO TID 05/08/18 11/18/18 History [K-Phos Original] prednisone 30 mg PO DAILY 05/08/18 11/18/18 History spironolactone 25 mg PO DAILY 05/08/18 11/18/18 History hydroxyzine HCl 50 mg PO HS PRN 10/28/18 11/18/18 History melatonin 5 mg PO HS PRN 10/28/18 11/18/18 History gabapentin 300 mg PO TID 11/18/18 11/18/18 History Exam Vital signs: Vital Signs 11/18/18 16:00 11/18/18 20:00 11/19/18 00:00 Temperature 99.4 F 99.3 F 99.3 F Pulse Rate 88 96 H 84 Respiratory Rate 16 17 18 Blood Pressure 127/78 118/65 118/69 Pulse Oximetry 98 98 98 11/19/18 04:00 11/19/18 07:41 Temperature 99.0 F 98.5 F Pulse Rate 73 90 Respiratory Rate 18 16 Blood Pressure 106/67 106/63 Pulse Oximetry 97 98 Intake & Output 11/18/18 11/19/18 11/19/18 18:59 06:59 18:59 Intake Total 1000 / 1000 Balance 1000 / 1000 Weight 72.575 kg Intake: IV 1000 / 1000 NS Inj 1,000 ML @ Wide Open IV. 1000 / 1000 SIG BOLUS ONE Rx#:[id number] Other: # Voids 4 Date of Last Bowel Movement 11/18/18 11/18/18 # Bowel Movements 4 - Constitutional no acute distress - Routine HEENT Exam Head: Present: normocephalic Eye: Present: PERRL ENT: Present: mucous membranes moist - Routine Neck Exam Present: supple - Routine Chest/Breast/Axilla Exam Chest wall: Present: tenderness - Routine Respiratory Exam Present: CTA bilaterally - Routine Cardiovascular Exam Present: S1, S2. Absent: murmur, gallop, rubs - Routine Abdominal Exam Present: normoactive bowel sounds - Routine Extremities Exam Present: full ROM, pulses intact, normal capillary refill. Absent: cyanosis, clubbing, edema - Routine Skin Exam Present: intact - Routine Neurological Exam Present: oriented X3 Results 11/18/18 11:50 11/19/18 07:39 Cardiac Enzymes 11/18/18 11/18/18 11/18/18 Range/Units 11:50 11:50 18:00 AST 16 (15-37) U/L Troponin I Less than 0.02 L Less than 0.02 L (0.02-0.05) ng/mL B-Natriuretic Peptide 32 (0-100) pg/mL 11/19/18 Range/Units 00:14 AST (15-37) U/L Troponin I Less than 0.02 L (0.02-0.05) ng/mL B-Natriuretic Peptide (0-100) pg/mL Coagulation 11/18/18 11/18/18 Range/Units 11:50 11:50 PT 10.3 (9.8-11.6) sec APTT 26.2 (23.4-31.7) sec B-Natriuretic Peptide 32 (0-100) pg/mL CBC 11/18/18 Range/Units 11:50 WBC 8.0 (4.0-11.0) th/mm3 RBC 3.79 L (4.00-5.30) mil/mm3 Hgb 11.4 L (11.6-15.3) gm/dL Hct 33.5 L (35.0-46.0) % Plt Count 209 (150-450) th/mm3 Neut # (Auto) 6.8 (1.8-7.7) th/mm3 Lymph # (Auto) 0.8 L (1.0-4.8) th/mm3 [place] # (Auto) 0.3 (0.0-0.9) th/mm3 Eos # (Auto) 0.0 (0.0-0.4) th/mm3 Baso # (Auto) 0.0 (0.0-0.2) th/mm3 Comprehensive Metabolic Panel 11/18/18 11/19/18 Range/Units 11:50 07:39 Sodium 141 141 (136-145) meq/L Potassium 3.5 3.6 (3.5-5.1) meq/L Chloride 110 H 110 H (98-107) meq/L Carbon Dioxide 23.2 24.0 (21.0-32.0) meq/L BUN 8 11 (7-18) mg/dL Creatinine 1.17 H 1.12 H (0.50-1.00) mg/dL Calcium 8.6 8.2 L (8.5-10.1) mg/dL AST 16 (15-37) U/L ALT 27 (10-53) U/L Alkaline Phosphatase 67 (45-117) U/L Total Protein 7.3 (6.4-8.2) g/dL Albumin 3.9 (3.4-5.0) g/dL Intake and Output 11/19/18 11/19/18 11/19/18 06:59 14:59 22:59 Other: # Voids 4 # Bowel Movements 4 - Imaging and Cardiology Imaging: Impressions Chest X-Ray 11/18/18 11:34 CONCLUSION: No acute cardiopulmonary process Chest CTA 11/18/18 12:47 CONCLUSION: 1. Lungs are clear. No pulmonary embolus. 2. Small anterior abdominal wall hernia just inferior to xiphoid is stable. 3. A few borderline prominent lymph nodes measuring upwards of 1.3 cm in diameter at the level of the renal vessels were present previously and are completely unchanged. These are likely reactive. Assessment and Plan - Assessment (1) Atypical chest pain Code(s): R07.89 - Other chest pain Status: Acute (2) Renal disease Code(s): N28.9 - Disorder of kidney and ureter, unspecified Status: Acute (3) Hypokalemia due to loss of potassium Code(s): E87.6 - Hypokalemia Status: Acute (4) Acute kidney injury superimposed on CKD Code(s): N17.9 - Acute kidney failure, unspecified; N18.9 - Chronic kidney disease, unspecified Status: Acute (5) SLE (systemic lupus erythematosus) Code(s): M32.9 - Systemic lupus erythematosus, unspecified Status: Chronic (6) Diarrhea Code(s): R19.7 - Diarrhea, unspecified Status: Acute (7) Brugada syndrome Code(s): I49.8 - Other specified cardiac arrhythmias Status: Resolved - Plan Patient is having atypical chest pain, troponin levels are negative and EKG shows no evidence of acute coronary syndrome. Patient is currently SR on monitor, continue Life Vest. Patient's potassium levels are WNL. We will continue with current cardiac treatment plan. Continue current pain medications. Patient is cleared for discharge from a cardiology standpoint. The patient was seen and evaluated by Dr. Craig who participated in care, management and decision making. - Attending Attestation Patient seen and examined. I reviewed and agree with the evaluation and plan as presented. No evidence of ACS. Continue current program. OK to discharge from cardiac standpoint. (5) SLE (systemic lupus erythematosus) Qualifiers: Systemic lupus erythematosus type: unspecified (6) Diarrhea Qualifiers: Diarrhea type: unspecified type Qualified Code(s): R19.7 - Diarrhea, unspecified
--- NOTE | 2018-11-19 23:22 | ECG ---
Date Performed: 11/18/2018 Time Performed: 23:59:52 PTAGE: 43 years EKG: Sinus rhythm NORMAL ECG PREVIOUS TRACING : 11/18/2018 18.28 DOCTOR: Tamara Cervantes Interpretating Date/Time 11/19/2018 23:21:11
--- NOTE | 2018-11-19 23:28 | ECG ---
Date Performed: 11/18/2018 Time Performed: 18:28:10 PTAGE: 43 years EKG: Sinus rhythm NORMAL ECG PREVIOUS TRACING : 11/18/2018 11.39 DOCTOR: Tamara Cervantes Interpretating Date/Time 11/19/2018 23:26:01
--- NOTE | 2018-11-19 23:37 | ECG ---
Date Performed: 11/18/2018 Time Performed: 11:39:30 PTAGE: 43 years EKG: Sinus rhythm NORMAL ECG PREVIOUS TRACING : 10/28/2018 02.32 DOCTOR: Tamara Cervantes Interpretating Date/Time 11/19/2018 23:33:52
== END 2018-11-19 12:07 | disposition home or self-care (01) ==
LOC: NEDA 11:07 → NEPE 11:07 → NEDA 16:09 → NEPGCP 16:15
PROVIDERS: ADMIT Hospitalist; ATTEND Hospitalist
CPT/HCPCS: 71010; 71045; 71275; 80048; 80053; 81001; 83520; 83690; 83735; 83880; 84484; 84703; 85025; 85379; 85610; 85730; 87493; 90760; 93005; 96360; 96372; 99285; G0378; J1644; J7030; J7506; J7512; Q9967